=== PATIENT | male | born 1955 | race Caucasian/White ===

== ENCOUNTER → 2025-06-03 | Outpatient (REF) | payer OTHER, SELFPAY ==
[2025-06-03 09:50] LABS: AST(SGOT) 140 U/L (<=37); Alanine Aminotransfer ALT/SGPT 158 U/L (<=46); Albumin, Serum 3.2 g/dL (3.4-4.8); Alkaline Phosphatase 117 U/L (40-129); Anion Gap 12 (5-15); BUN 20 mg/dL (4-19); BUN/Creat Ratio 22.5 RATIO (10-20); Calcium,Total 9.0 mg/dL (7.6-11.0); Carbon Dioxide 26.6 mmol/L (21.0-32.0); Chloride 92 mmol/L (98-108); Globulin 3.4 g/dL (2.2-4.2); Glucose 96 mg/dL (70-99); Potassium 4.0 mmol/L (3.3-5.1)
== END ==
LOC: OLS.SANC 05:00
PROVIDERS: Visit Provider Internal Medicine
DX: I10 Essential (primary) hypertension (principal); J44.9 Chronic obstructive pulmonary disease, unspecified; D64.9 Anemia, unspecified
CPT/HCPCS: 36415; 80053

== ENCOUNTER → 2025-06-11 05:00 | Outpatient (REF) | payer OTHER, SELFPAY ==
[2025-06-11 07:02] LABS: AST(SGOT) 15 U/L (<=37); Alanine Aminotransfer ALT/SGPT 26 U/L (<=46); Albumin, Serum 3.2 g/dL (3.4-4.8); Alkaline Phosphatase 94 U/L (40-129); Anion Gap 10 (5-15); BUN 24 mg/dL (4-19); BUN/Creat Ratio 27.9 RATIO (10-20); Calcium,Total 8.6 mg/dL (7.6-11.0); Carbon Dioxide 26.1 mmol/L (21.0-32.0); Chloride 95 mmol/L (98-108); Globulin 2.7 g/dL (2.2-4.2); Glucose 126 mg/dL (70-99); Potassium 3.6 mmol/L (3.3-5.1)
== END ==
LOC: OLS.SANC 05:00
PROVIDERS: Visit Provider Internal Medicine
DX: I48.91 Unspecified atrial fibrillation (principal); D64.9 Anemia, unspecified; I50.9 Heart failure, unspecified; R53.83 Other fatigue
CPT/HCPCS: 36415; 80053

== ENCOUNTER → 2025-06-14 04:00 | Outpatient (REF) | payer MEDICARE, SELFPAY ==
[2025-06-14 07:49] LABS: Hematocrit 35.6 % (40-54); Hemoglobin 11.7 g/dL (13.0-16.5); Mean Corp Hgb Conc 32.9 g/dL (32-36); Mean Corpuscular Volume 88.1 fL (80-94); Mean Platelet Vol. 9.7 fl (6.2-12.0); POSITIVE COUNT YES; POSITIVE MORPHOLOGY YES; Platelet Count 268 K/mm3 (150-450); RBC Distribution Width CV 14.1 % (11.6-14.6); RBC Distribution Width SD 45.2 fl (35.1-43.9); Red Blood Count 4.04 M/mm3 (4.6-6.2); White Blood Count 8.9 K/mm3 (4.4-11.0)
[2025-06-14 07:54] LABS: Differential Indicated MANUAL DIFF
[2025-06-14 08:03] LABS: Vancomycin, Trough Level 12.9 ug/mL (5.0-15.0)
[2025-06-14 08:04] LABS: AST(SGOT) 35 U/L (<=37); Alanine Aminotransfer ALT/SGPT 35 U/L (<=46); Albumin, Serum 3.3 g/dL (3.4-4.8); Alkaline Phosphatase 96 U/L (40-129); Anion Gap 11 (5-15); BUN 28 mg/dL (4-19); BUN/Creat Ratio 27.9 RATIO (10-20); Calcium,Total 8.7 mg/dL (7.6-11.0); Carbon Dioxide 27.9 mmol/L (21.0-32.0); Chloride 94 mmol/L (98-108); Globulin 2.9 g/dL (2.2-4.2); Glucose 124 mg/dL (70-99); Potassium 3.1 mmol/L (3.3-5.1)
[2025-06-14 08:18] LABS: Neutrophil-Band 2 % (0-5); Neutrophil-Segmented 67 % (47-70); Total Cells Counted 100 (MANUAL DIFF)
[2025-06-14 08:19] LABS: Red Cell Morphology NORM C+C NORMAL (NORM C&C)
== END ==
LOC: OLS.SANC 04:00
PROVIDERS: Referring Provider Internal Medicine; Visit Provider Internal Medicine
DX: I48.91 Unspecified atrial fibrillation (principal); D64.9 Anemia, unspecified; J44.9 Chronic obstructive pulmonary disease, unspecified; R53.83 Other fatigue; E03.9 Hypothyroidism, unspecified; F03.90 Unspecified dementia, unspecified severity, without behavioral disturbance, psychotic disturbance, mood disturbance, and anxiety
CPT/HCPCS: 36415; 80053; 80202; 85025

== ENCOUNTER → 2025-06-18 05:00 | Outpatient (REF) | payer OTHER, SELFPAY ==
--- OUTSIDE RECORDS SUMMARY | 2025-06-18 04:30 | XMS RPT_ITS | CCD ---
Author Organization [facility] Care Team Providers Care Rehabilitation Supervisor Name Role Phone Reji Ferro Attending Unavailable Reji Ferro Attending Unavailable Reji Ferro Attending Unavailable Results Test Name Value Interpretation Reference Range Facil ity CBC W/Diff, Automatedon 10-1 PATH REV May foll Normal [facility] Comment on above: Order Comment: 108.2 Performed By: #### L 501.8820, L100.0100, L500.4050 #### [facility] [address] [place], [address] Absolute Lymph 0.98 X10 3/uL Normal 0.83-4.51 [facility] Comment on above: Order Comment: 108.2 Performed By: #### L 501.8820, L100.0100, L500.4050 #### [facility] [address] [place], [address] Absolute Neut 6.1 X10 3/uL Normal 2.0-7.7 [facility] Comment on above: Order Comment: 108.2 Performed By: #### L 501.8820, L100.0100, L500.4050 #### [facility] [address] [place], [address] PLT EST ADEQUATE Normal ADEQ [facility] Comment on above: Order Comment: 108.2 Performed By: #### L 501.8820, L100.0100, L500.4050 #### [facility] [address] [place], [address] RED CELL MORPH NORM C+C Normal NORM C C [facility] Comment on above: Order Comment: 108.2 Performed By: #### L 501.8820, L100.0100, L500.4050 #### [facility] [address] [place], [address] BAND 2 Normal 0-5 [facility] Comment on above: Order Comment: 108.2 Performed By: #### L 501.8820, L100.0100, L500.4050 #### [facility] [address] [place], [address] Eosinophils/100 WBC (Bld) 9 % High 0-5 [facility] Comment on above: Order Comment: 108.2 Performed By: #### L 501.8820, L100.0100, L500.4050 #### [facility] [address] [place], [address] Lymphocytes (Bld) [#/Vol] 11 10*3/uL Low 19-41 [facility] Comment on above: Order Comment: 108.2 Performed By: #### L 501.8820, L100.0100, L500.4050 #### [facility] [address] [place], [address] MONOCYTE 11 High 0-10 [facility] Comment on above: Order Comment: 108.2 Performed By: #### L 501.8820, L100.0100, L500.4050 #### [facility] [address] [place], [address] SEGS 67 Normal 47-70 [facility] Comment on above: Order Comment: 108.2 Performed By: #### L 501.8820, L100.0100, L500.4050 #### [facility] [address] [place], [address] TOTAL CELLS 100 Normal MANUAL DIFF [facility] Comment on above: Order Comment: 108.2 Performed By: #### L 501.8820, L100.0100, L500.4050 #### [facility] [address] [place], [address] Comprehensive Metabolic Prof siddhartha 06-14-2025 Albumin [Mass/Vol] 3.3 g/dL Low 3.4-4.8 [place] Comment on above: Order Comment: 108.2 Performed By: #### L 501.8820, L100.0100, L500.4050 #### [facility] [address] [place], [address] Albumin/Globulin [Mass ratio] 1.1 {ratio} Normal 0.9-2.4 [facility] Comment on above: Order Comment: 108.2 Performed By: #### L 501.8820, L100.0100, L500.4050 #### [facility] [address] [place], [address] ALK PHOS 96 U/L Normal 40-129 [facility] Comment on above: Order Comment: 108.2 Performed By: #### L 501.8820, L100.0100, L500.4050 #### [facility] [address] [place], [address] ALT [Catalytic activity/Vol] 35 U/L Normal <=46 [facility] Comment on above: Order Comment: 108.2 Performed By: #### L 501.8820, L100.0100, L500.4050 #### [facility] [address] [place], [address] AST [Catalytic activity/Vol] 35 U/L Normal <=37 [facility] Comment on above: Order Comment: 108.2 Performed By: #### L 501.8820, L100.0100, L500.4050 #### [facility] [address] [place], [address] Bilirubin [Mass/Vol] 0.26 mg/dL Normal 0.00-1.30 [facility] Comment on above: Order Comment: 108.2 Performed By: #### L 501.8820, L100.0100, L500.4050 #### [facility] [address] [place], [address] BUN/CRE 27.9 RATIO High 10-20 [facility] Comment on above: Order Comment: 108.2 Performed By: #### L 501.8820, L100.0100, L500.4050 #### [facility] [address] [place], [address] Calcium [Mass/Vol] 8.7 mg/dL Normal 7.6-11.0 [place] Comment on above: Order Comment: 108.2 Performed By: #### L 501.8820, L100.0100, L500.4050 #### [facility] [address] [place], [address] Chloride [Moles/Vol] 94 mmol/L Low 98-108 [facility] Comment on above: Order Comment: 108.2 Performed By: #### L 501.8820, L100.0100, L500.4050 #### [facility] [address] [place], [address] CO2 [Moles/Vol] 27.9 mmol/L Normal 21.0-32.0 [facility] Comment on above: Order Comment: 108.2 Performed By: #### L 501.8820, L100.0100, L500.4050 #### [facility] [address] [place], [address] Creatinine [Mass/Vol] 1.01 mg/dL Normal 0.70-1.20 [facility] Comment on above: Order Comment: 108.2 Performed By: #### L 501.8820, L100.0100, L500.4050 #### [facility] [address] [place], [address] GAP 11 Normal 5-15 [facility] Comment on above: Order Comment: 108.2 Performed By: #### L 501.8820, L100.0100, L500.4050 #### [facility] [address] [place], [address] GFR/1.73 sq M.predicted among non-blacks MDRD (S/P/Bld) [Vol rate/Area] 81 mL/min/{1.73_m2} Normal >60 [facility] Comment on above: Order Comment: 108.2 Result Comment: mL/m in/1.73m2 CKD-EPI Creatinine Equation (2020) Performed By: #### L 501.8820, L100.0100, L500.4050 #### [facility] [address] [place], [address] Globulin (S) [Mass/Vol] 2.9 g/dL Normal 2.2-4.2 [facility] Comment on above: Order Comment: 108.2 Performed By: #### L 501.8820, L100.0100, L500.4050 #### [facility] [address] [place], [address] Glucose [Mass/Vol] 124 mg/dL High 70-99 [place] Comment on above: Order Comment: 108.2 Performed By: #### L 501.8820, L100.0100, L500.4050 #### [facility] [address] [place], [address] Potassium [Moles/Vol] 3.1 mmol/L Low 3.3-5.1 [facility] Comment on above: Order Comment: 108.2 Performed By: #### L 501.8820, L100.0100, L500.4050 #### [facility] [address] [place], [address] Sodium [Moles/Vol] 133 mmol/L Normal 133-145 [place] Comment on above: Order Comment: 108.2 Performed By: #### L 501.8820, L100.0100, L500.4050 #### [facility] [address] [place], [address] T PROT 6.2 g/dL Normal 5.9-8.4 [facility] Comment on above: Order Comment: 108.2 Performed By: #### L 501.8820, L100.0100, L500.4050 #### [facility] [address] [place], [address] Urea nitrogen [Mass/Vol] 28 mg/dL High 4-19 [facility] Comment on above: Order Comment: 108.2 Performed By: #### L 501.8820, L100.0100, L500.4050 #### [facility] [address] [place], [address] Vancomycin, Trough Levelon 1 VANCO, TROUGH 12.9 ug/mL Normal 5.0-15.0 [facility] Comment on above: Order Comment: 108.2 0000 Result Comment: Migue mmended goal trough ranges are generally 10-15 mcg/ml for less severe/complicated infections such as cellulitis or UTI and 15-20 mcg/ml for more severe/complicated infections such as bacteremia/sepsis, osteomyelitis, pneumonia or meningitis. Goal trough ranges should take into account indication, patient-specific factors and organism CHANDANA. VANCOMYCIN STANDARED DRUG THERAPY TROUGH LEVEL: 5.0 - 15.0 mg/L VANCOMYCIN HIGH INTENSITY THERAPY TROUGH LEVEL: 15.0 - 20.0 mg/L High Intensity therapy recommended for serious life threatening infections include: - Meningitis -Endocarditis -Pneumonia (Ventilator/Healtcare Associated) -Sepsis PLEASE CONTACT PHARMACY SERVICES (#[id number]) FOR INTERPRETATION OF RESULTS. Performed By: #### L 501.8820, L100.0100, L500.4050 #### [facility] [address] [place], [address] Comprehensive Metabolic Prof ilon 06-11-2025 Albumin [Mass/Vol] 3.2 g/dL Low 3.4-4.8 [place] Comment on above: Order Comment: 108-2 Performed By: #### L 500.4050 #### [facility] [address] [place], [address] Albumin/Globulin [Mass ratio] 1.2 {ratio} Normal 0.9-2.4 [facility] Comment on above: Order Comment: 108-2 Performed By: #### L 500.4050 #### [facility] [address] [place], [address] ALK PHOS 94 U/L Normal 40-129 [facility] Comment on above: Order Comment: 108-2 Performed By: #### L 500.4050 #### [facility] [address] [place], [address] ALT [Catalytic activity/Vol] 26 U/L Normal <=46 [facility] Comment on above: Order Comment: 108-2 Performed By: #### L 500.4050 #### [facility] [address] [place], [address] AST [Catalytic activity/Vol] 15 U/L Normal <=37 [facility] Comment on above: Order Comment: 108-2 Performed By: #### L 500.4050 #### [facility] [address] [place], [address] Bilirubin [Mass/Vol] 0.29 mg/dL Normal 0.00-1.30 [facility] Comment on above: Order Comment: 108-2 Performed By: #### L 500.4050 #### [facility] [address] [place], [address] BUN/CRE 27.9 RATIO High 10-20 [facility] Comment on above: Order Comment: 108-2 Performed By: #### L 500.4050 #### [facility] [address] [place], [address] Calcium [Mass/Vol] 8.6 mg/dL Normal 7.6-11.0 [place] Comment on above: Order Comment: 108-2 Performed By: #### L 500.4050 #### [facility] [address] [place], [address] Chloride [Moles/Vol] 95 mmol/L Low 98-108 [facility] Comment on above: Order Comment: 108-2 Performed By: #### L 500.4050 #### [facility] [address] [place], [address] CO2 [Moles/Vol] 26.1 mmol/L Normal 21.0-32.0 [facility] Comment on above: Order Comment: 108-2 Performed By: #### L 500.4050 #### [facility] [address] [place], [address] Creatinine [Mass/Vol] 0.87 mg/dL Normal 0.70-1.20 [facility] Comment on above: Order Comment: 108-2 Performed By: #### L 500.4050 #### [facility] [address] [place], [address] GAP 10 Normal 5-15 [facility] Comment on above: Order Comment: 108-2 Performed By: #### L 500.4050 #### [facility] [address] [place], [address] GFR/1.73 sq M.predicted among non-blacks MDRD (S/P/Bld) [Vol rate/Area] 93 mL/min/{1.73_m2} Normal >60 [facility] Comment on above: Order Comment: 108-2 Result Comment: mL/m in/1.73m2 CKD-EPI Creatinine Equation (2020) Performed By: #### L 500.4050 #### [facility] [address] [place], [address] Globulin (S) [Mass/Vol] 2.7 g/dL Normal 2.2-4.2 [facility] Comment on above: Order Comment: 108-2 Performed By: #### L 500.4050 #### [facility] [address] [place], [address] Glucose [Mass/Vol] 126 mg/dL High 70-99 [place] Comment on above: Order Comment: 108-2 Performed By: #### L 500.4050 #### [facility] [address] [place], [address] Potassium [Moles/Vol] 3.6 mmol/L Normal 3.3-5.1 [facility] Comment on above: Order Comment: 108-2 Performed By: #### L 500.4050 #### [facility] [address] [place], [address] Sodium [Moles/Vol] 131 mmol/L Low 133-145 [place] Comment on above: Order Comment: 108-2 Performed By: #### L 500.4050 #### [facility] [address] [place], [address] T PROT 6.0 g/dL Normal 5.9-8.4 [facility] Comment on above: Order Comment: 108-2 Performed By: #### L 500.4050 #### [facility] [address] [place], [address] Urea nitrogen [Mass/Vol] 24 mg/dL High 4-19 [facility] Comment on above: Order Comment: 108-2 Performed By: #### L 500.4050 #### [facility] [address] [place], [address] CBC W/Diff, Automatedon 10-0 Absolute Neut Normal 2.0-7.7 [facility] Comment on above: Order Comment: 108.2 Result Comment: [facility] Performed By: #### L 100.0100, L500.4050 #### [facility] [address] [place], [address] HCT Normal 40-54 [facility] Comment on above: Order Comment: 108.2 Performed By: #### L 100.0100 #### [facility] [address] [place], [address] Result Comment: [facility] Performed By: #### L 100.0100, L500.4050 #### [facility] [address] [place], [address] HGB Normal 13.0-16.5 [facility] Comment on above: Order Comment: 108.2 Performed By: #### L 100.0100 #### [facility] [address] [place], [address] Result Comment: [facility] Performed By: #### L 100.0100, L500.4050 #### [facility] [address] [place], [address] MCH Normal 27.0-32.0 [facility] Comment on above: Order Comment: 108.2 Performed By: #### L 100.0100 #### [facility] [address] [place], [address] Result Comment: [facility] Performed By: #### L 100.0100, L500.4050 #### [facility] [address] [place], [address] MCHC Normal 32-36 [facility] Comment on above: Order Comment: 108.2 Performed By: #### L 100.0100 #### [facility] [address] [place], [address] Result Comment: [facility] Performed By: #### L 100.0100, L500.4050 #### [facility] [address] [place], [address] MCV Normal 80-94 [facility] Comment on above: Order Comment: 108.2 Performed By: #### L 100.0100 #### [facility] [address] [place], [address] Result Comment: [facility] Performed By: #### L 100.0100, L500.4050 #### [facility] [address] [place], [address] NEUT% Normal 47-70 [facility] Comment on above: Order Comment: 108.2 Result Comment: [facility] Performed By: #### L 100.0100, L500.4050 #### [facility] [address] [place], [address] PLT Normal 150-450 [facility] Comment on above: Order Comment: 108.2 Performed By: #### L 100.0100 #### [facility] [address] [place], [address] Result Comment: [facility] Performed By: #### L 100.0100, L500.4050 #### [facility] [address] [place], [address] RBC Normal 4.6-6.2 [facility] Comment on above: Order Comment: 108.2 Performed By: #### L 100.0100 #### [facility] [address] [place], [address] Result Comment: [facility] Performed By: #### L 100.0100, L500.4050 #### [facility] [address] [place], [address] RDW CV Normal 11.6-14.6 [facility] Comment on above: Order Comment: 108.2 Performed By: #### L 100.0100 #### [facility] [address] [place], [address] Result Comment: [facility] Performed By: #### L 100.0100, L500.4050 #### [facility] [address] [place], [address] RDW SD Normal 35.1-43.9 [facility] Comment on above: Order Comment: 108.2 Performed By: #### L 100.0100 #### [facility] [address] [place], [address] Result Comment: [facility] Performed By: #### L 100.0100, L500.4050 #### [facility] [address] [place], [address] WBC Normal 4.4-11.0 [facility] Comment on above: Order Comment: 108.2 Performed By: #### L 100.0100 #### [facility] [address] [place], [address] Result Comment: [facility] Performed By: #### L 100.0100, L500.4050 #### [facility] [address] [place], [address] Comprehensive Metabolic Prof ilon 06-07-2025 ALB Normal 3.4-4.8 [facility] Comment on above: Order Comment: 108.2 Result Comment: [facility] Performed By: #### L 100.0100, L500.4050 #### [facility] [address] [place], [address] ALK PHOS Normal 40-129 [facility] Comment on above: Order Comment: 108.2 Result Comment: [facility] Performed By: #### L 100.0100, L500.4050 #### [facility] [address] [place], [address] ALT Normal <=46 [facility] Comment on above: Order Comment: 108.2 Result Comment: [facility] Performed By: #### L 100.0100, L500.4050 #### [facility] [address] [place], [address] AST Normal <=37 [facility] Comment on above: Order Comment: 108.2 Result Comment: [facility] Performed By: #### L 100.0100, L500.4050 #### [facility] [address] [place], [address] BUN Normal 4-19 [facility] Comment on above: Order Comment: 108.2 Result Comment: [facility] Performed By: #### L 100.0100, L500.4050 #### [facility] [address] [place], [address] BUN/CRE Normal 10-20 [facility] Comment on above: Order Comment: 108.2 Result Comment: [facility] Performed By: #### L 100.0100, L500.4050 #### [facility] [address] [place], [address] Calcium Normal 7.6-11.0 [facility] Comment on above: Order Comment: 108.2 Result Comment: [facility] Performed By: #### L 100.0100, L500.4050 #### [facility] [address] [place], [address] CL Normal 98-108 [facility] Comment on above: Order Comment: 108.2 Result Comment: [facility] Performed By: #### L 100.0100, L500.4050 #### [facility] [address] [place], [address] CO2 Normal 21.0-32.0 [facility] Comment on above: Order Comment: 108.2 Result Comment: [facility] Performed By: #### L 100.0100, L500.4050 #### [facility] [address] [place], [address] CREAT,SERUM Normal 0.70-1.20 [facility] Comment on above: Order Comment: 108.2 Result Comment: [facility] Performed By: #### L 100.0100, L500.4050 #### [facility] [address] [place], [address] eGFR Normal >60 [facility] Comment on above: Order Comment: 108.2 Result Comment: [facility] Performed By: #### L 100.0100, L500.4050 #### [facility] [address] [place], [address] GAP Normal 5-15 [facility] Comment on above: Order Comment: 108.2 Result Comment: [facility] Performed By: #### L 100.0100, L500.4050 #### [facility] [address] [place], [address] GLU Normal 70-99 [facility] Comment on above: Order Comment: 108.2 Result Comment: [facility] Performed By: #### L 100.0100, L500.4050 #### [facility] [address] [place], [address] Potassium Normal 3.3-5.1 [facility] Comment on above: Order Comment: 108.2 Result Comment: [facility] Performed By: #### L 100.0100, L500.4050 #### [facility] [address] [place], [address] T BILI Normal 0.00-1.30 [facility] Comment on above: Order Comment: 108.2 Result Comment: [facility] Performed By: #### L 100.0100, L500.4050 #### [facility] [address] [place], [address] T PROT Normal 5.9-8.4 [facility] Comment on above: Order Comment: 108.2 Result Comment: [facility] Performed By: #### L 100.0100, L500.4050 #### [facility] [address] [place], [address] Comprehensive Metabolic Profil Normal 133-145 [facility] Comment on above: Order Comment: 108.2 Result Comment: [facility] Performed By: #### L 100.0100, L500.4050 #### [facility] [address] [place], [address] Comprehensive Metabolic Prof ilon 06-04-2025 ALB Normal 3.4-4.8 [facility] Comment on above: Order Comment: 108-2 Result Comment: [facility] Performed By: #### L 500.4050 #### [facility] [address] [place], [address] ALK PHOS Normal 40-129 [facility] Comment on above: Order Comment: 108-2 Result Comment: [facility] Performed By: #### L 500.4050 #### [facility] [address] [place], [address] ALT Normal <=46 [facility] Comment on above: Order Comment: 108-2 Result Comment: [facility] Performed By: #### L 500.4050 #### [facility] [address] [place], [address] AST Normal <=37 [facility] Comment on above: Order Comment: 108-2 Result Comment: [facility] Performed By: #### L 500.4050 #### [facility] [address] [place], [address] BUN Normal 4-19 [facility] Comment on above: Order Comment: 108-2 Result Comment: [facility] Performed By: #### L 500.4050 #### [facility] [address] [place], [address] BUN/CRE Normal 10-20 [facility] Comment on above: Order Comment: 108-2 Result Comment: [facility] Performed By: #### L 500.4050 #### [facility] [address] [place], [address] Calcium Normal 7.6-11.0 [facility] Comment on above: Order Comment: 108-2 Result Comment: [facility] Performed By: #### L 500.4050 #### [facility] [address] [place], [address] CL Normal 98-108 [facility] Comment on above: Order Comment: 108-2 Result Comment: [facility] Performed By: #### L 500.4050 #### [facility] [address] [place], [address] CO2 Normal 21.0-32.0 [facility] Comment on above: Order Comment: 108-2 Result Comment: [facility] Performed By: #### L 500.4050 #### [facility] [address] [place], [address] CREAT,SERUM Normal 0.70-1.20 [facility] Comment on above: Order Comment: 108-2 Result Comment: [facility] Performed By: #### L 500.4050 #### [facility] [address] [place], [address] eGFR Normal >60 [facility] Comment on above: Order Comment: 108-2 Result Comment: [facility] Performed By: #### L 500.4050 #### [facility] [address] [place], [address] GAP Normal 5-15 [facility] Comment on above: Order Comment: 108-2 Result Comment: [facility] Performed By: #### L 500.4050 #### [facility] [address] [place], [address] GLU Normal 70-99 [facility] Comment on above: Order Comment: 108-2 Result Comment: [facility] Performed By: #### L 500.4050 #### [facility] [address] [place], [address] Potassium Normal 3.3-5.1 [facility] Comment on above: Order Comment: 108-2 Result Comment: [facility] Performed By: #### L 500.4050 #### [facility] [address] [place], [address] T BILI Normal 0.00-1.30 [facility] Comment on above: Order Comment: 108-2 Result Comment: [facility] Performed By: #### L 500.4050 #### [facility] [address] [place], [address] T PROT Normal 5.9-8.4 [facility] Comment on above: Order Comment: 108-2 Result Comment: [facility] Performed By: #### L 500.4050 #### [facility] [address] [place], [address] Comprehensive Metabolic Profil Normal 133-145 [facility] Comment on above: Order Comment: 108-2 Result Comment: [facility] Performed By: #### L 500.4050 #### [facility] [address] [place], [address] Comprehensive Metabolic Prof ilon 06-03-2025 Albumin [Mass/Vol] 3.2 g/dL Low 3.4-4.8 [place] Comment on above: Order Comment: 108.2 Performed By: #### L 500.4050 #### [facility] [address] [place], [address] Albumin/Globulin [Mass ratio] 0.9 {ratio} Normal 0.9-2.4 [facility] Comment on above: Order Comment: 108.2 Performed By: #### L 500.4050 #### [facility] [address] [place], [address] ALK PHOS 117 U/L Normal 40-129 [facility] Comment on above: Order Comment: 108.2 Performed By: #### L 500.4050 #### [facility] [address] [place], [address] ALT [Catalytic activity/Vol] 158 U/L High <=46 [facility] Comment on above: Order Comment: 108.2 Performed By: #### L 500.4050 #### [facility] [address] [place], [address] AST [Catalytic activity/Vol] 140 U/L High <=37 [facility] Comment on above: Order Comment: 108.2 Performed By: #### L [id number] #### [facility] [address] [place], [address] Bilirubin [Mass/Vol] 0.43 mg/dL Normal 0.00-1.30 [facility] Comment on above: Order Comment: 108.2 Performed By: #### L 500.4050 #### [facility] [address] [place], [address] BUN/CRE 22.5 RATIO High 10-20 [facility] Comment on above: Order Comment: 108.2 Performed By: #### L 500.4050 #### [facility] [address] [place], [address] Calcium [Mass/Vol] 9.0 mg/dL Normal 7.6-11.0 [place] Comment on above: Order Comment: 108.2 Performed By: #### L 500.4050 #### [facility] [address] [place], [address] Chloride [Moles/Vol] 92 mmol/L Low 98-108 [facility] Comment on above: Order Comment: 108.2 Performed By: #### L 500.4050 #### [facility] [address] [place], [address] CO2 [Moles/Vol] 26.6 mmol/L Normal 21.0-32.0 [facility] Comment on above: Order Comment: 108.2 Performed By: #### L 500.4050 #### [facility] [address] [place], [address] Creatinine [Mass/Vol] 0.90 mg/dL Normal 0.70-1.20 [facility] Comment on above: Order Comment: 108.2 Performed By: #### L 500.4050 #### [facility] [address] [place], [address] GAP 12 Normal 5-15 [facility] Comment on above: Order Comment: 108.2 Performed By: #### L 500.4050 #### [facility] [address] [place], [address] GFR/1.73 sq M.predicted among non-blacks MDRD (S/P/Bld) [Vol rate/Area] 92 mL/min/{1.73_m2} Normal >60 [facility] Comment on above: Order Comment: 108.2 Result Comment: mL/m in/1.73m2 CKD-EPI Creatinine Equation (2020) Performed By: #### L 500.4050 #### [facility] [address] [place], [address] Globulin (S) [Mass/Vol] 3.4 g/dL Normal 2.2-4.2 [facility] Comment on above: Order Comment: 108.2 Performed By: #### L 500.4050 #### [facility] [address] [place], [address] Glucose [Mass/Vol] 96 mg/dL Normal 70-99 [place] Comment on above: Order Comment: 108.2 Performed By: #### L 500.4050 #### [facility] [address] [place], [address] Potassium [Moles/Vol] 4.0 mmol/L Normal 3.3-5.1 [facility] Comment on above: Order Comment: 108.2 Performed By: #### L 500.4050 #### [facility] [address] [place], [address] Sodium [Moles/Vol] 130 mmol/L Low 133-145 [place] Comment on above: Order Comment: 108.2 Performed By: #### L 500.4050 #### [facility] [address] [place], [address] T PROT 6.5 g/dL Normal 5.9-8.4 [facility] Comment on above: Order Comment: 108.2 Performed By: #### L 500.4050 #### [facility] [address] [place], [address] Urea nitrogen [Mass/Vol] 20 mg/dL High 4-19 [facility] Comment on above: Order Comment: 108.2 Performed By: #### L 500.4050 #### [facility] [address] [place], [place], [address] Encounters Encounter Date Encounter Type Care Provider Facility Start: 06-14-2025 ambulatory Reji Ahni lity:[facility] Start: 06-11-20[facility] Start: 06-03-2025 ambulatory Reji [place] Ah[facility] lity:[facility] Payers Date Payer Category Payer Self-pay Summary Purpose Family History No Family History Records Found Advance Directives No Advanced Directives Records Found Additional Source Comments (unrecognized sect ion and content) No Status Records Found INFORMATION SOURCE (unrecogn ized section and content) DATE CREATED AUTHOR 06/14/2025 [facility] FOR RECORDS PERTAINING TO PATIENTS WHO ARE OR HAVE BEEN ENROLLED IN A CHEMICAL DEPENDENCY/SUBSTANCEABUSE PROGRAM, SOME INFORMATION MAY BE OMITTED. This clinical summary was aggregated from multiple sources. Caution should be exercised in using it in the provision of clinical care. This summary normalizes information from multiple sources, and as a consequence, information in this document may materially change the coding, format and clinical context of patient data. In addition, data may be omitted in some cases. CLINICAL DECISIONS SHOULD BE BASED ON THE PRIMARY CLINICAL RECORDS. [employer] [facility]. provides no warranty or guarantee of the accuracy or completeness of information in this document.
[2025-06-18 09:18] LABS: Vancomycin, Trough Level 10.2 ug/mL (5.0-15.0)
== END ==
LOC: OLS.SANC 05:00
PROVIDERS: Visit Provider Internal Medicine
DX: E78.5 Hyperlipidemia, unspecified (principal); E03.9 Hypothyroidism, unspecified; J96.90 Respiratory failure, unspecified, unspecified whether with hypoxia or hypercapnia; J44.9 Chronic obstructive pulmonary disease, unspecified
CPT/HCPCS: 36415; 80202

== ENCOUNTER → 2025-06-21 05:00 | Outpatient (REF) | payer OTHER, SELFPAY ==
[2025-06-21 08:04] LABS: Hematocrit 32.0 % (40-54); Hemoglobin 10.6 g/dL (13.0-16.5); Immature Granulocytes Count 0.350 X10^3/uL (0.0-0.0); Mean Corp Hgb Conc 33.1 g/dL (32-36); Mean Corpuscular Volume 89.1 fL (80-94); Mean Platelet Vol. 9.4 fl (6.2-12.0); NRBC Flagged by Analyzer 0 % (0-5); Platelet Count 216 K/mm3 (150-450); RBC Distribution Width CV 14.5 % (11.6-14.6); RBC Distribution Width SD 47.0 fl (35.1-43.9); Red Blood Count 3.59 M/mm3 (4.6-6.2); White Blood Count 7.9 K/mm3 (4.4-11.0)
[2025-06-21 08:25] LABS: Vancomycin, Trough Level 20.4 ug/mL (5.0-15.0)
[2025-06-21 08:27] LABS: AST(SGOT) 20 U/L (<=37); Alanine Aminotransfer ALT/SGPT 21 U/L (<=46); Albumin, Serum 3.3 g/dL (3.4-4.8); Alkaline Phosphatase 101 U/L (40-129); Anion Gap 9 (5-15); BUN 28 mg/dL (4-19); BUN/Creat Ratio 31.3 RATIO (10-20); Calcium,Total 8.5 mg/dL (7.6-11.0); Carbon Dioxide 27.6 mmol/L (21.0-32.0); Chloride 96 mmol/L (98-108); Globulin 2.6 g/dL (2.2-4.2); Glucose 95 mg/dL (70-99); Potassium 4.2 mmol/L (3.3-5.1)
== END ==
LOC: OLS.SANC 05:00
PROVIDERS: Visit Provider Internal Medicine
DX: I48.91 Unspecified atrial fibrillation (principal); D64.9 Anemia, unspecified; I50.9 Heart failure, unspecified; J44.9 Chronic obstructive pulmonary disease, unspecified; I10 Essential (primary) hypertension; E78.5 Hyperlipidemia, unspecified; G93.41 Metabolic encephalopathy
CPT/HCPCS: 36415; 80053; 80202; 85025

== ENCOUNTER → 2025-06-23 | Outpatient (REF) | payer MEDICARE, SELFPAY ==
[2025-06-23 06:40] LABS: Hematocrit 31.4 % (40-54); Hemoglobin 10.6 g/dL (13.0-16.5); Mean Corp Hgb Conc 33.8 g/dL (32-36); Mean Corpuscular Volume 87.2 fL (80-94); Mean Platelet Vol. 9.5 fl (6.2-12.0); Platelet Count 210 K/mm3 (150-450); RBC Distribution Width CV 14.4 % (11.6-14.6); RBC Distribution Width SD 45.5 fl (35.1-43.9); Red Blood Count 3.60 M/mm3 (4.6-6.2); White Blood Count 8.0 K/mm3 (4.4-11.0)
[2025-06-23 06:50] LABS: Anion Gap 9 (5-15); BUN 23 mg/dL (4-19); BUN/Creat Ratio 23.7 RATIO (10-20); Calcium,Total 8.0 mg/dL (7.6-11.0); Carbon Dioxide 27.0 mmol/L (21.0-32.0); Chloride 94 mmol/L (98-108); Glucose 104 mg/dL (70-99); Potassium 4.1 mmol/L (3.3-5.1)
== END ==
LOC: OLS.SANC 04:00
PROVIDERS: Referring Provider Internal Medicine; Visit Provider Internal Medicine
DX: I48.91 Unspecified atrial fibrillation (principal); I10 Essential (primary) hypertension
CPT/HCPCS: 36415; 80048; 85027

== ENCOUNTER → 2025-06-28 05:00 | Outpatient (REF) | payer OTHER, SELFPAY ==
[2025-06-28 08:55] LABS: Hematocrit 29.7 % (40-54); Hemoglobin 9.8 g/dL (13.0-16.5); Mean Corp Hgb Conc 33.0 g/dL (32-36); Mean Corpuscular Volume 88.1 fL (80-94); Mean Platelet Vol. 9.5 fl (6.2-12.0); POSITIVE COUNT YES; POSITIVE MORPHOLOGY YES; Platelet Count 309 K/mm3 (150-450); RBC Distribution Width CV 14.4 % (11.6-14.6); RBC Distribution Width SD 46.4 fl (35.1-43.9); Red Blood Count 3.37 M/mm3 (4.6-6.2); White Blood Count 9.0 K/mm3 (4.4-11.0)
[2025-06-28 09:11] LABS: AST(SGOT) 21 U/L (<=37); Alanine Aminotransfer ALT/SGPT 18 U/L (<=46); Albumin, Serum 3.1 g/dL (3.4-4.8); Alkaline Phosphatase 99 U/L (40-129); Anion Gap 9 (5-15); BUN 18 mg/dL (4-19); BUN/Creat Ratio 20.4 RATIO (10-20); Calcium,Total 8.4 mg/dL (7.6-11.0); Carbon Dioxide 26.5 mmol/L (21.0-32.0); Chloride 96 mmol/L (98-108); Globulin 2.9 g/dL (2.2-4.2); Glucose 123 mg/dL (70-99); Potassium 3.7 mmol/L (3.3-5.1)
[2025-06-28 09:15] LABS: Vancomycin, Trough Level 19.6 ug/mL (5.0-15.0)
[2025-06-28 09:20] LABS: Differential Indicated MANUAL DIFF
[2025-06-28 09:26] LABS: Neutrophil-Band 3 % (0-5); Neutrophil-Segmented 61 % (47-70); Red Cell Morphology NORM C+C NORMAL (NORM C&C); Total Cells Counted 100 (MANUAL DIFF)
== END ==
LOC: OLS.SANC 05:00
PROVIDERS: Visit Provider Internal Medicine
DX: I50.9 Heart failure, unspecified (principal); J44.9 Chronic obstructive pulmonary disease, unspecified; E11.9 Type 2 diabetes mellitus without complications; I82.409 Acute embolism and thrombosis of unspecified deep veins of unspecified lower extremity; E78.5 Hyperlipidemia, unspecified; E03.9 Hypothyroidism, unspecified
CPT/HCPCS: 36415; 80053; 80202; 85025

== ENCOUNTER → 2025-06-30 20:00 | Outpatient (REF) | payer OTHER, SELFPAY | LOC: OLS.SANC 20:00 | PROVIDERS: Visit Provider Internal Medicine | DX: D64.9 Anemia, unspecified (principal) | CPT/HCPCS: 82274 ==

== ENCOUNTER → 2025-07-05 04:00 | Outpatient (REF) | payer OTHER, SELFPAY ==
--- OUTSIDE RECORDS SUMMARY | 2025-07-05 03:48 | XMS RPT_ITS | CCD ---
Author Organization [facility] Care Team Providers Care [employer] Name Role Phone Unavailable Primary Care Provider UnavailLuly Person Primary Care Provider Charlie Del Rosario Primary Care Provider Charlie Del Rosario MD Primary Care Provider Charlie Del Rosario MD Primary Care Provider Jamia Sierra MD Primary Care Provider Jamia Sierra MD Primary Care Provider Unavailable Primary Care Provider UnavailLuly Person MD Primary Care Provider Jamia Sierra MD Primary Care Provider [phone] Jamia Sierra MD Unavailable Jamia Sierra MD Primary Care Provider Matt HERNANDEZ Muttrevon Unavailable [phone] Shaun AGRAWAL, Tanika Garza Unavailable Unavailable Pedro Subramanian MD Primary Care Provider [phone] Shaun AGRAWAL, Tanika Garza Unavailable Unavailable Monica Lora RN Unavailable Unavailable Monica Lora RN Unavailable Unavailable Shaun AGRAWAL, Tanika Garza Unavailable Unavailable Jennifer Howell Unavailable Unavailable Tanika Dunn RN Unavailable Unavailable Jennifer Howell Unavailable Unavailable Julisa Mckinnon RN Unavailable Unavailable Julisa Mckinnon RN Unavailable Unavailable Toi Davis MD Primary Care Provider [phone] Julisa Mckinnon RN Unavailable Unavailable PROVIDER, UNKNOWN Attending Unavailable PROVIDER, UNKNOWN Admitting Unavailable Julisa Mckinnon RN Unavailable Unavailable Toi Davis MD [facility] Care Provider [phone] Pedro Subramanian MD Primary Care Provider [phone] JOSE M WIGGINS Admitting Unavailable [place]DELL, [place] Primary Care Unavailable JOSE M WIGGINS Attending Unavailable JOSE M WIGGINS Admitting Unavailable SAVANAELL, [place] Primary Care Unavailable JOSE M WIGGINS Attending Unavailable CHARLIE WESTFALL Attending Unavailable ASHLEY YANG Admitting Unavailable EAN HUGHES Consulting Unavailable ROVERTO, TOI Primary Care Unavailable ROSHAN JONES Consulting Unavailab ALLAN Hughes Consulting Unavailable JOSE M WIGGINS Admitting Unavailable SAVANAELL, [place] Primary Care Unavailable ROSALIE, JOSE M Attending Unavailable RACHAEL NGO Consulting Unavailable MICHAEL LANGE Admitting Unavailjames DAVIS, [facility] Primary Care Unavailable RUBEN CAM Attending Unavailable RUBEN CAM Consulting [facility] [place] Primary Care Unavailable JESSENIA CRYSTAL Attending Unavailable ASDELL, [place] Primary Care Unavailable TANVI GONZALES Attending Unavailable SAVANAELL, [place] Primary Care Unavailable MICHAEL LANGE Referring Unavailjames DAVIS, [facility] Primary Care Unavailable ROVERTO, [facility] Care [facility] [place] Primary Care Unavailable CHARLIE MCINTYRE Referring Unavailable [place]AVANAELL, [place] Primary Care Unavailable Reji Ferro Attending Unavailable Reji Ferro Attending Unavailable Reji Ferro Attending Unavailable Reji Ferro Attending Unavailable Reji Ferro Referring Unavailable Reji Ferro Attending Unavailable Reji Ferro Referring Unavailable Reji Ferro Attending Unavailable Reji Ferro Attending Unavailable Reji Ferro Attending Unavailable Allergies Allergy Classification Reported Allergen(s) Allergy Type Date of Onset Reaction(s) Facility (6 sources) cefepime Drug Allergy 06-10-2025 [facility] [employer] Phone: Medications Current Medications Medication Drug Class(es) Dates Sig (Normalized) Sig (Original) acetaminophen 325 mg / HYDROcodone bitartrate 5 mg oral tablet (2 sources) Opioid Agonist Start: 07-01-2020 HYDROcodone-acetam inophen (NORCO) 5-325 MG per tablet 1 tablet Start: 07-21-2019 End: 07-24-2019 take 1 tablet by mouth every four hours as needed for pain, then take 1 tablet by mouth as needed for pain HYDROcodone-acetaminophen (NORCO) 5-325 MG per tablet Indications: Displaced fracture of shaft of left clavicle, initial encounter for closed fracture Take 1 tablet by mouth every 4 hours as needed for Pain for up to 3 days. Intended supply: 3 days. Take lowest dose possible to manage pain 10 tablet 0 07/21/2019 07/24/2019 Active albuterol 0.83 mg/ml inhalation solution (20 sources) beta2-Adrenergic Agonist Start: 09-16-2024 End: 09-28-2024 albuterol (2.5 MG/3ML) 0.083% nebulizer solution Indications: Chronic bronchitis, unspecified chronic bronchitis type (HCC) Take 3 mL (2.5 mg) by nebulization as needed for wheezing or shortness of breath. 75 mL 3 09/28/2024 Active Start: 11-11-2023 albuterol (2.5 MG/3ML) 0.083% nebulizer solution 2.5 mg Start: 04-02-2023 End: 11-14-2023 take 2 puff(s) by inhalation every six hours as needed for wheezing albuterol 108 (90 Base) MCG/ACT inhaler Indications: Chronic bronchitis, unspecified chronic bronchitis type (HCC) INHALE 2 PUFFS INTO LUNGS EVERY 6 HOURS NEEDED FOR WHEEZING OR SHORTNESS OF BREATH 18 each 2 10/07/2023 11/14/2023 Discontinued (Stop taking at discharge) Start: 03-15-2023 End: 09-16-2024 albuterol (2.5 MG/3ML) 0.083 % nebulizer solution TAKE 3 MLS VIA NEBULIZATION ONCE NEEDED FOR WHEEZING OR SHORTNESS OF BREATH FOR UP TO 75 DOSES 75 mL 2 03/15/2023 09/16/2024 Discontinued (Reorder) Start: 01-01-2023 End: 03-15-2023 albuterol (2.5 MG/3ML) 0.083 % nebulizer solution Take 3 mL (2.5 mg) by nebulization Once as needed for wheezing or shortness of breath for up to 75 doses. Take 3 mL (2.5 mg) by nebulization as needed for wheezing or shortness of breath. 75 mL 2 01/01/2023 03/15/2023 Discontinued Start: 09-14-2022 End: 01-01-2023 albuterol (2.5 MG/3ML) 0.083 % nebulizer solution Take 3 mL (2.5 mg) by nebulization as needed for wheezing or shortness of breath. 75 mL 2 09/14/2022 01/01/2023 Discontinued Start: 09-12-2022 albuterol (2.5 MG/3ML) 0.083% nebulizer solution 2.5 mg Start: 08-21-2022 End: 04-02-2023 take 2 puff(s) by inhalation every six hours as needed for wheezing albuterol 108 (90 Base) MCG/ACT inhaler Indications: Chronic bronchitis, unspecified chronic bronchitis type (HCC) Inhale 2 puffs every 6 hours as needed for wheezing or shortness of breath. 18 each 2 01/01/2023 04/02/2023 Discontinued Start: 07-25-2022 End: 08-21-2022 take 2 puff(s) by inhalation every six hours as needed for wheezing albuterol 108 (90 Base) MCG/ACT inhaler Indications: Chronic bronchitis, unspecified chronic bronchitis type (HCC) Inhale 2 puffs every 6 hours as needed for wheezing or shortness of breath. 18 g 0 07/25/2022 08/21/2022 Discontinued Start: 07-21-2021 take 2 puff(s) by in halation every six hours as needed for wheezing albuterol sulfate HFA (PROAIR HFA) 108 (90 Base) MCG/ACT inhaler Indications: Pulmonary emphysema, unspecified emphysema type (HCC) Inhale 2 puffs into the lungs every 6 hours as needed for Wheezing 6.7 g 0 07/21/2021 Active Start: 02-27-2021 take 2 puff(s) by in halation every six hours as needed for wheezing albuterol sulfate HFA (PROAIR HFA) 108 (90 Base) MCG/ACT inhaler Indications: Pulmonary emphysema, unspecified emphysema type (HCC) Inhale 2 puffs into the lungs every 6 hours as needed for Wheezing 6 Inhaler 3 02/27/2021 Active Start: 07-01-2020 2.5 mg, Nebuli zation, EVERY 4 HOURS PRN, Wheezing, Shortness of Breath, Starting Sat07/01/20 at 1159 Start: 06-01-2020 albuterol (PRO VENTIL) (2.5 MG/3ML) 0.083% nebulizer solution Indications: Pulmonary emphysema, unspecified emphysema type (HCC) Take 3 mLs by nebulization every 4 hours as needed for Wheezing or Shortness of Breath 375 mL 5 06/01/2020 Active Start: 05-04-2020 take 2 puff(s) by in halation every six hours as needed for wheezing albuterol sulfate HFA (PROAIR HFA) 108 (90 Base) MCG/ACT inhaler Indications: Pulmonary emphysema, unspecified emphysema type (HCC) Inhale 2 puffs into the lungs every 6 hours as needed for Wheezing 6 Inhaler 3 05/04/2020 Active Start: 05-04-2020 take 2 puff(s) by in halation every six hours as needed for wheezing albuterol sulfate HFA (PROAIR HFA) 108 (90 Base) MCG/ACT inhaler Indications: Pulmonary emphysema, unspecified emphysema type (HCC) Inhale 2 puffs into the lungs every 6 hours as needed for Wheezing 6 Inhaler 3 05/04/2020 Active Start: 05-04-2020 albuterol (PRO VENTIL) (2.5 MG/3ML) 0.083% nebulizer solution Indications: Pulmonary emphysema, unspecified emphysema type (HCC) Take 3 mLs by nebulization every 4 hours as needed for Wheezing or Shortness of Breath USE 1 ML BY NEBULIZATION 4 TIMES DAILY NEEDED FOR WHEEZING 375 mL 5 05/04/2020 Active Start: 02-25-2020 albuterol (PRO VENTIL) (2.5 MG/3ML) 0.083% nebulizer solution Indications: Chronic obstructive pulmonary disease, unspecified COPD type (HCC) Take 3 mLs by nebulization every 4 hours as needed for Wheezing or Shortness of Breath USE 1 ML BY NEBULIZATION 4 TIMES DAILY NEEDED FOR WHEEZING 375 mL 5 02/25/2020 Active Start: 09-15-2019 End: 02-25-2020 albuterol (PROVENTIL) (2.5 M G/3ML) 0.083% nebulizer solution Indications: Chronic obstructive pulmonary disease, unspecified COPD type (HCC) USE 1 ML BY NEBULIZATION 4 TIMES DAILY NEEDED FOR WHEEZING 375 mL 3 09/15/2019 02/25/2020 Discontinued (REORDER) Start: 12-15-2018 End: 02-25-2020 take 2 puff(s) by inhalation every six hours as needed for wheezing albuterol sulfate HFA (PROAIR HFA) 108 (90 Base) MCG/ACT inhaler Inhale 2 puffs into the lungs every 6 hours as needed for Wheezing 6 Inhaler 3 02/25/2020 Active Start: 12-15-2018 take 2 puff(s) by in halation every six hours as needed for wheezing albuterol sulfate HFA (PROAIR HFA) 108 (90 Base) MCG/ACT inhaler Inhale 2 puffs into the lungs every 6 hours as needed for Wheezing 6 Inhaler 3 12/15/2018 Active Start: 02-22-2018 albuterol (PRO VENTIL) (2.5 MG/3ML) 0.083% nebulizer solution Indications: Chronic obstructive pulmonary disease, unspecified COPD type (HCC) USE 1 ML BY NEBULIZATION 4 TIMES DAILY NEEDED FOR WHEEZING 375 mL 3 02/22/2018 Active albuterol sulfate HFA (PROAIR HFA) 108 (90 Base) MCG/ACT inhaler (1 source) Start: 05-04-2020 take 2 puff(s) by inhalation every six hours as needed for wheezing albuterol sulfate HFA (PROAIR HFA) 108 (90 Base) MCG/ACT inhaler Indications: Pulmonary emphysema, unspecified emphysema type (HCC) Inhale 2 puffs into the lungs every 6 hours as needed for Wheezing 6 Inhaler 3 05/04/2020 Active albuterol sulfate HFA 108 (90 Base) MCG/ACT inhaler 4 puff (1 source) Start: 02-11-2020 albuterol sulfate HFA 108 (90 Base) MCG/ACT inhaler 4 puff carvedilol 12.5 mg oral tablet (9 sources) alpha-Adrenergic Amira, beta-Adrenergic Amira Start: 09-25-2018 take 1 tablet by mouth twice daily at mealtime carvedilol (COREG) 12.5 MG tablet Indications: Essential hypertension TAKE 1 TABLET BY MOUTH 2 TIMES DAILY (WITH MEALS) 180 tablet 3 09/25/2018 Active cephalexin 500 mg oral capsule (2 sources) Cephalosporin Antibacterial Start: 04-12-2021 End: 04-19-2021 take 1 capsule by mouth four times daily cephALEXin (KEFLEX) 500 MG capsule Indications: Toe infection Take 1 capsule by mouth 4 times daily for 7 days 28 capsule 0 04/12/2021 04/19/2021 Active dapagliflozin 10 mg oral tablet (20 sources) Sodium-Glucose Cotransporter 2 Inhibitor Start: 06-04-2025 End: 06-11-2026 take 1 tablet by mouth once daily dapagliflozin (Farxiga) 10 MG tablet Indications: Heart Failure Take 1 tablet (10 mg) by mouth daily. 06/11/2025 06/11/2026 Active Start: 09-10-2024 End: 09-17-2025 take 1 tablet by mouth once daily in the evening dapagliflozin (Farxiga) 5 MG tablet Take 1 tablet (5 mg) by mouth daily. 30 tablet 11 09/16/2024 2:50 PM EST 09/17/2024 06/04/2025 Discontinued (Other) diclofenac sodium 0.01 mg/mg topical gel (6 sources) Nonsteroidal Anti-inflammatory Drug Start: 12-16-2020 diclofenac sodium (VOLTAREN) 1 % GEL Indications: Chronic bilateral low back pain without sciatica APPLY 4 G TOPICALLY 4 TIMES DAILY NEEDED FOR PAIN (BACK PAIN) 400 g 1 12/16/2020 Active Start: 11-29-2020 diclofenac sod ium (VOLTAREN) 1 % GEL Indications: Chronic bilateral low back pain without sciatica Apply 4 g topically 4 times daily as needed for Pain (Back Pain) 350 g 0 11/29/2020 Active 1 ml diphenhydrAMINE hydrochloride 50 mg/ml cartridge (8 sources) Histamine-1 Receptor Antagonist Start: 06-07-2025 End: 06-10-2025 diphenhydrAMINE (BENADryl) 50 MG/ML injection Infuse 0.5 mL (25 mg) into a venous catheter daily. Prior to vancomycin infusions 06/11/2025 Active ergocalciferol 1.25 mg oral capsule (20 sources) Provitamin D2 Compound Start: 08-07-2022 End: 01-07-2023 take 1 capsule by mouth every week ergocalciferol (Vitamin D2) 1.25 MG (19693 UT) capsule TAKE 1 CAPSULE BY MOUTH ONCE WEEKLY *DO NOT START BEFORE JUL 25 3 capsule 0 08/29/2022 Active folic acid 1 mg oral tablet (20 sources) Start: 03-15-2025 End: 06-02-2025 Start: 02-14-2024 End: 02-17-2024 take 1000 ug by mouth once daily in the morning 1,000 mcg, Oral, Every morning, First dose on Sat02/14/24 at 0900 Start: 08-26-2021 End: 06-10-2025 take 1 tablet by mouth once daily in the morning folic acid (Folvite) 1 MG tablet Indications: Malnutrition, unspecified type (HCC) TAKE 1 TABLET (1,000 MCG) BY MOUTH EVERY MORNING. 90 tablet 3 03/15/2025 Active lisinopril 10 mg oral tablet (20 sources) Angiotensin Converting Enzyme Inhibitor Start: 09-05-2021 take 1 tablet by mouth once daily lisinopril (PRINIVIL;ZESTRIL) 10 MG tablet Take 1 tablet by mouth nightly 30 tablet 3 09/05/2021 Active Start: 04-19-2020 take 1 tablet by darek th once daily lisinopril (PRINIVIL;ZESTRIL) 10 MG tablet Take 1 tablet by mouth daily 30 tablet 11 04/19/2020 Active Start: 08-17-2019 take 1 tablet by darek th once daily lisinopril (PRINIVIL;ZESTRIL) 5 MG tablet Indications: Essential hypertension TAKE 1 TABLET BY MOUTH DAILY 90 tablet 3 08/17/2019 Active Start: 09-25-2018 take 1 tablet by darek th once daily lisinopril (PRINIVIL;ZESTRIL) 5 MG tablet Indications: Essential hypertension TAKE 1 TABLET BY MOUTH DAILY 90 tablet 3 09/25/2018 Active losartan potassium 25 mg ora l tablet (20 sources) Angiotensin 2 Receptor Amira Start: 03-15-2025 Start: 09-10-2024 End: 09-16-2024 take 12.5 mg by mouth once daily 12.5 mg, Oral, Daily, First dose on Autumn 09/10/24 at 1835 Start: 08-22-2024 End: 02-18-2025 take 0.5 tablet by mouth once daily losartan (Cozaar) 25 MG tablet Take 0.5 tablets (12.5 mg) by mouth daily. 15 tablet 5 08/22/2024 09/16/2024 Discontinued (Reorder) Start: 11-12-2023 End: 06-10-2025 take 1 tablet by mouth once daily losartan (Cozaar) 25 MG tablet Indications: Essential hypertension TAKE 1 TABLET BY MOUTH EVERY DAY 90 tablet 3 03/15/2025 Active mirtazapine 15 mg disintegrating oral tablet (8 sources) Start: 06-09-2025 End: 07-10-2025 take 1 tablet by mouth once daily mirtazapine (Remeron Kelsea-Tab) 15 MG disintegrating tablet Take 1 tablet (15 mg) by mouth Nightly. 06/10/2025 07/10/2025 Active mometasone-formoterol (DULERA) 100-5 MCG/ACT inhaler 2 puff (1 source) Start: 07-01-2020 mometasone-for moterol (DULERA) 100-5 MCG/ACT inhaler 2 puff Multiple Vitamins-Minerals (A Thru Z Advanced Adult) tablet (3 sources) Start: 03-02-2024 End: 04-01-2024 take 1 tablet by mouth once daily at breakfast Multiple Vitamins-Minerals (A Thru Z Advanced Adult) tablet Indications: Alcohol abuse Take 1 tablet by mouth daily (with breakfast). 30 tablet 03/02/2024 04/01/2024 Active Multiple Vitamins-Minerals (CENTRUM ADULTS PO) (20 sources) Multiple Vitamins-Minerals (CENTRUM ADULTS PO) Take by mouth 0 Suspended Multiple Vitamin s-Minerals (CENTRUM ADULTS PO) Take by mouth 0 Active [place]-3 Fatty Acids (OMEGA 3 500 PO) (3 sources) [place]-3 Fatty Ac ids (OMEGA 3 500 PO) Take by mouth 0 Active perflutren lipid microspheres (DEFINITY) injection 1.65 mg (1 source) Start: 07-20-20 20 End: 07-23-20 20 perflutren lipid microspheres (DEFINITY) injection 1.65 mg salmon calcitonin 200 unt/actuat nasal spray (3 sources) Calcitonin Start: 10-07-19 End: 11-06-19 20 take 1 spray(s) nasal route once daily calcitonin (MIACALCIN) 200 UNIT/ACT nasal spray Indications: Osteoporosis, unspecified osteoporosis type, unspecified pathological fracture presence , Compression fracture of thoracic vertebra with routine healing, unspecified thoracic vertebral level, subsequent encounter 1 spray by Nasal route daily Alternate nostrils each day 1 Bottle 0 10/07/2019 Active spironolactone 25 mg oral tablet (20 sources) Aldosterone Antagonist Start: 05-17-20 End: 06-10-20 take 1 tablet by mouth once daily spironolactone (Aldactone) 25 MG tablet Indications: HFrEF (heart failure with reduced ejection fraction) ([facility]) TAKE 1 TABLET BY MOUTH EVERY DAY 90 tablet 1 05/17/2025 Active Start: 08-22-2024 End: 03-15-2025 take 1 tablet by mouth once daily spironolactone (Aldactone) 25 MG tablet Indications: HFrEF (heart failure with reduced ejection fraction) ([facility]) Take 1 tablet (25 mg) by mouth daily. 30 tablet 5 09/16/2024 Active Start: 07-30-2022 End: 04-15-2024 take 25 mg by mouth once daily 25 mg, Oral, Nightly, F irst dose on Autumn 09/13/22 at 2100 Start: 09-27-2020 take 1 tablet by darek th once daily spironolactone (ALDACTONE) 25 MG tablet TAKE 1 TABLET BY MOUTH DAILY 90 tablet 3 09/27/2020 Active Start: 10-26-2019 take 0.5 tablet by m outh once daily spironolactone (ALDACTONE) 25 MG tablet Indications: Hyperkalemia , Hyponatremia Take 0.5 tablets by mouth daily 90 tablet 3 10/26/2019 Active Start: 05-27-2018 take 1 tablet by darek th once daily spironolactone (ALDACTONE) 25 MG tablet TAKE 1 TABLET BY MOUTH DAILY 90 tablet 3 10/24/2018 Active thiamine 100 mg oral tablet (20 sources) Start: 05-23-2025 End: 06-10-2025 take 1 tablet by mouth once daily thiamine (Vitamin B1) 100 MG tablet Take 1 tablet (100 mg) by mouth daily. 06/03/2025 Active Start: 05-20-2025 End: 05-23-2025 Start: 08-20-2024 End: 08-22-2024 take 100 mg by mouth once daily 100 mg, Oral, Daily, F irst dose on Autumn 08/20/24 at 0900 Start: 04-09-2022 End: 03-03-2024 take 100 mg by mouth once daily 100 mg, Oral, Daily, F irst dose on Autumn 09/13/22 at 0900 Start: 08-26-2021 End: 09-27-2021 take 1 tablet by mouth once daily thiamine 100 MG tablet Take 1 tablet by mouth daily 30 tablet 3 08/26/2021 09/27/2021 Discontinued 10 actuat tiotropium 0.0025 mg/actuat inhalation spray (20 sources) Anticholinergic Start: 06-03-2025 End: 06-03-2026 take 2 puff(s) by inhalation once daily tiotropium (Spiriva Respimat) 2.5 MCG/ACT inhaler Inhale 2 puffs daily. 06/03/2025 06/03/2026 Active Start: 05-22-2025 End: 06-03-2026 Start: 11-02-2024 End: 11-03-2024 take 2 puff(s) by inhalation once daily 2 puff, Inhalation, Daily, First dose on Sat11/02/24 at 0900 Start: 09-10-2024 End: 09-16-2024 2 puff, Inhalation, Daily, F irst dose on Autumn 09/10/24 at 1835, Instruct to hold breath for 10 seconds after each inhalation. Before first use, prime inhaler by actuating until aerosal cloud is seen, then actuating 3 more times. Start: 08-20-2024 End: 08-22-2024 take 2 puff(s) by inhalation once daily 2 puff, Inhalation, Daily, First dose on Autumn 08/20/24 at 0900 Start: 02-17-2024 End: 02-17-2024 2 puff, Inhalation, Daily, F irst dose on Sat02/17/24 at 1200, Instruct to hold breath for 10 seconds after each inhalation. Before first use, prime inhaler by actuating until aerosal cloud is seen, then actuating 3 more times. Start: 11-12-2023 End: 11-14-2023 2 puff, Inhalation, Daily, F irst dose on Sat11/12/23 at 0900, Instruct to hold breath for 10 seconds after each inhalation. Before first use, prime inhaler by actuating until aerosal cloud is seen, then actuating 3 more times. Start: 09-14-2022 End: 04-15-2024 tiotropium (Spiriva Respimat ) 1.25 MCG/ACT inhaler Indications: Chronic bronchitis, unspecified chronic bronchitis type (HCC) Inhale 2 puffs daily. 4 g 1 03/02/2024 04/15/2024 Discontinued (Ineffective) tiotropium (Spiriva Respimat) 2.5 MCG/ACT inhaler (4 sources) Start: 06-03-2025 End: 06-03-2026 take 2 puff(s) by inhalation once daily tiotropium (Spiriva Respimat) 2.5 MCG/ACT inhaler Inhale 2 puffs daily. 06/03/2025 06/03/2026 Active tiZANidine 4 mg oral tablet (7 sources) Central alpha-2 Adrenergic Agonist Start: 11-21-2020 take 1 tablet by mouth once daily as needed for muscle spasms tiZANidine (ZANAFLEX) 4 MG tablet Indications: Chronic bilateral low back pain without sciatica Take 1 tablet by mouth nightly as needed (back spasms) 10 tablet 0 11/21/2020 Active torsemide 10 mg oral tablet (20 sources) Loop Diuretic Start: 06-10-2025 End: 06-10-2026 take 3 tablets by mouth once daily torsemide (Demadex) 10 MG tablet Take 3 tablets (30 mg) by mouth daily. 06/10/2025 06/10/2026 Active Start: 06-06-2025 End: 06-08-2025 Start: 06-02-2025 End: 06-10-2026 take 3 tablets by mouth twice daily torsemide (Demadex) 10 MG tablet Take 3 tablets (30 mg) by mouth 2 times daily. 06/02/2025 06/10/2025 Discontinued Start: 12-14-2024 End: 06-02-2025 Start: 11-02-2024 End: 11-03-2024 take 20 mg by mouth once daily 20 mg, Oral, Daily, Fir st dose on Sat11/02/24 at 0900 Start: 09-28-2024 End: 11-03-2024 take 2.5 tablets by mouth twice daily torsemide (Demadex) 20 MG tablet Take 2.5 tablets (50 mg) by mouth 2 times daily for 7 days. 35 tablet 09/28/2024 11/03/2024 Discontinued (Stop taking at discharge) Start: 09-16-2024 End: 11-15-2024 take 2 tablets by mouth twice daily in the evening torsemide (Demadex) 20 MG tablet Take 2 tablets (40 mg) by mouth 2 times daily. 120 tablet 2 09/16/2024 2:50 PM EST 09/16/2024 11/03/2024 Discontinued (Stop taking at discharge) Start: 03-30-2020 End: 09-16-2024 take 20 mg by mouth twice daily 20 mg, Oral, 2 times d aily, First dose on 08/22/24 at 0845 Start: 12-23-2019 take 2 tablets by mo uth twice daily torsemide (DEMADEX) 20 MG tablet Take 2 tablets by mouth 2 times daily 120 tablet 3 12/23/2019 Suspended take 1 tablet by darek th once daily torsemide (DEMADEX) 20 MG tablet Take 20 mg by mouth daily 0 Active triamcinolone acetonide 0.001 mg/mg topical ointment (3 sources) Corticosteroid Start: 10-27-2017 triamcinolone (KENALOG) 0.1 % ointment APPLY TOPICALLY 2 TIMES DAILY FOR 7 DAYS 1 10/27/2017 Active Vancomycin (7 sources) Glycopeptide Antibacterial Start: 06-03-2025 vancomycin IVPB 1500 mg in 250 mL NS (premix) Infuse 250 mL (1,500 mg) into a venous catheter Every 24 hours. 06/03/2025 Active Start: 07-01-2020 End: 07-01-2020 vancomycin (VANCOCIN) 1000 m g in dextrose 5% 200 mL IVPB varenicline 0.5 mg oral tablet (6 sources) Partial Cholinergic Nicotinic Agonist Start: 10-26-2019 take 1 tablet by mouth once, then take 2 tablets by mouth varenicline (CHANTIX STARTING ) 0.5 MG X 11 & 1 MG X 42 tablet Indications: Tobacco abuse Take by mouth. 1 box 0 10/26/2019 Active Start: 09-15-2019 take 1 tablet by darek th once, then take 2 tablets by mouth varenicline (CHANTIX STARTING MONTH MYNOR) 0.5 MG X 11 & 1 MG X 42 tablet Indications: Tobacco abuse Take by mouth. 1 box 0 09/15/2019 Active (4 sources) Start: 06-03-2025 End: 06-02-2025 Start: 05-22-2025 End: 06-02-2025 Completed/Discontinued Medications Medication Drug Class(es) Dates Sig (Normalized) Sig (Original) acetaminophen 325 mg oral tablet (20 sources) Start: 05-25-2025 End: 06-02-2025 take 650 mg by mouth every four hours as needed for pain Start: 05-20-2025 End: 05-21-2025 Start: 11-01-2024 End: 11-03-2024 take 1 tablet by mouth every six hours as needed for pain and fever acetaminophen (Tylenol) tablet 650 mg Start: 09-10-2024 End: 09-16-2024 take 1 tablet by mouth every six hours as needed for pain and fever acetaminophen (Tylenol) tablet 650 mg Start: 08-19-2024 End: 08-22-2024 take 1 tablet by mouth every six hours as needed for pain and fever acetaminophen (Tylenol) tablet 650 mg Start: 02-13-2024 End: 02-17-2024 take 1 tablet by mouth every six hours as needed for pain and fever acetaminophen (Tylenol) tablet 650 mg Start: 11-12-2023 End: 11-14-2023 take 1 tablet by mouth every six hours as needed for pain and fever acetaminophen (Tylenol) tablet 650 mg Start: 01-01-2023 End: 01-31-2023 take 2 tablets by mouth every eight hours acetaminophen (Tylenol) 500 MG tablet Take 2 tablets (1,000 mg) by mouth in the morning and 2 tablets (1,000 mg) at noon and 2 tablets (1,000 mg) before bedtime. 180 tablet 0 01/01/2023 01/31/2023 Start: 12-29-2022 End: 01-01-2023 take 1 tablet by mouth every eight hours acetaminophen (Tylenol) tablet 1,000 mg Start: 09-13-2022 End: 09-14-2022 take 1 tablet by mouth every six hours as needed for pain and fever acetaminophen (Tylenol) tablet 650 mg Start: 07-19-2021 take 1 tablet by darek th every eight hours as needed for pain acetaminophen ([facility] ACETAMINOPHEN EX ST) 500 MG tablet Indications: Chronic bilateral low back pain without sciatica Take 1 tablet by mouth every 8 hours as needed for Pain 90 tablet 3 07/19/2021 Active Start: 02-09-2021 take 2 tablets by mo uth every eight hours as needed for pain ACETAMINOPHEN EXTRA STRENGTH 500 MG tablet Indications: Chronic bilateral low back pain without sciatica TAKE 2 TABLETS BY MOUTH EVERY 8 HOURS NEEDED FOR PAIN 90 tablet 0 02/09/2021 Active Start: 12-28-2020 take 2 tablets by mo uth every eight hours as needed for pain acetaminophen (TYLENOL) 500 MG tablet Indications: Compression fracture of L1 vertebra, initial encounter ([facility]) Take 2 tablets by mouth every 8 hours as needed for Pain 90 tablet 0 12/28/2020 Active Start: 11-29-2020 take 2 tablets by mo uth every eight hours as needed for pain acetaminophen (TYLENOL) 500 MG tablet Indications: Compression fracture of L1 vertebra, initial encounter ([facility]) Take 2 tablets by mouth every 8 hours as needed for Pain 90 tablet 0 11/29/2020 Active Start: 07-01-2020 take 1000 mg by mout h every eight hours as needed for pain, then take 4000 mg by mouth every twenty-four hours as needed for pain 1,000 mg, Oral, EVERY 8 HOURS PRN, Pain Moderate (4-6), Starting 07/01/20 at 1159 Maximum dose of acetaminophen is 4000 mg from all sources in 24 hours. Start: 11-04-2019 take 2 tablets by mo uth every eight hours as needed for pain acetaminophen (TYLENOL) 500 MG tablet Indications: Compression fracture of L1 vertebra, initial encounter ([facility]) Take 2 tablets by mouth every 8 hours as needed for Pain 90 tablet 0 11/04/2019 Active Start: 10-05-2019 take 2 tablets by mo uth three times daily acetaminophen (TYLENOL) 500 MG tablet Indications: Compression fracture of L1 vertebra, initial encounter ([facility]) Take 2 tablets by mouth 3 times daily 180 tablet 0 10/05/2019 Active acetaminophen 325 mg / oxyCODONE hydrochloride 5 mg oral tablet (5 sources) Opioid Agonist Start: 02-13-2024 End: 02-13-2024 1 tablet, Oral, Once, On Autumn 02/13/24 at 1805, For 1 dose, Maximum dose of acetaminophen is 4000 mg from all sources in 24 hours. Start: 12-26-2022 End: 01-01-2023 take 1 tablet by mouth every six hours as needed for pain oxyCODONE-acetaminophen (Percocet) 5-325 MG tablet Indications: Other closed displaced fracture of proximal end of left humerus, initial encounter Take 1 tablet by mouth every 6 hours as needed for severe pain (7-10) for up to 4 days. 12 tablet 0 12/26/2022 01/01/2023 Discontinued (Stop taking at discharge) 20 ml albumin human, assisted 250 mg/ml injection (5 sources) Human Serum Albumin Start: 06-04-2025 End: 06-04-2025 Start: 06-04-2025 End: 06-04-2025 Start: 05-21-2025 End: 05-21-2025 Start: 12-30-2022 End: 12-30-2022 albumin human 25 % IV soluti on 50 g albuterol 0.833 mg/ml / ipratropium bromide 0.167 mg/ml inhalation solution (20 sources) Anticholinergic, beta2-Adrenergic Agonist Start: 06-04-2025 End: 06-10-2025 Start: 05-20-2025 End: 06-02-2025 Start: 11-01-2024 End: 11-03-2024 3 mL, Nebulization, Every 4 hours PRN, shortness of breath, wheezing, Starting on Sat11/01/24 at 2227 Start: 11-01-2024 End: 11-01-2024 3 mL, Nebulization, Once, On Sat11/01/24 at 1505, For 1 dose Start: 09-10-2024 End: 09-16-2024 3 mL, Nebulization, Every 4 hours while awake, First dose (after last modification) on Sat09/16/24 at 0800 Start: 09-10-2024 End: 09-10-2024 3 mL, Nebulization, Once, On Autumn 09/10/24 at 1615, For 1 dose Start: 08-19-2024 End: 08-22-2024 3 mL, Nebulization, Every 4 hours PRN, shortness of breath, wheezing, Starting on Sat08/19/24 at 2204 Start: 11-14-2023 End: 11-14-2023 ipratropium-albuterol (Duo-N eb) 0.5-2.5 mg/3 mL nebulizer solution 3 mL Start: 11-14-2023 End: 11-14-2023 ipratropium-albuterol (Duo-N eb) 0.5-2.5 mg/3 mL nebulizer solution 3 mL Start: 11-12-2023 End: 11-14-2023 3 mL, Nebulization, Every 4 hours while awake, First dose on 11/12/23 at 0600 Start: 11-11-2023 ipratropium-al buterol (Duo-Neb) 0.5-2.5 mg/3 mL nebulizer solution 9 mL Start: 12-31-2022 End: 01-01-2023 ipratropium-albuterol (Duo-N eb) 0.5-2.5 mg/3 mL nebulizer solution 3 mL Start: 12-29-2022 End: 12-31-2022 3 mL, Nebulization, Every 4 hours while awake, First dose on 12/29/22 at 1815 Start: 09-14-2022 End: 04-15-2024 ipratropium-albuterol (Duo-N eb) 0.5-2.5 mg/3 mL nebulizer solution Take 3 mL by nebulization 2 times daily as needed for wheezing or shortness of breath. 1080 mL 01/01/2023 04/15/2024 Discontinued (Therapy completed) Start: 09-13-2022 End: 09-14-2022 3 mL, Nebulization, 4 times daily, First dose (after last modification) on Autumn 09/13/22 at 0800 Start: 09-12-2022 End: 09-13-2022 ipratropium-albuterol (Duo-N eb) 0.5-2.5 mg/3 mL nebulizer solution 3 mL Start: 02-25-2020 End: 02-25-2020 ipratropium-albuterol (DUONE B) nebulizer solution 1 ampule Start: 09-15-2019 take 20-100 ug by in halation every six hours COMBIVENT RESPIMAT 20-100 MCG/ACT AERS inhaler Indications: Chronic obstructive pulmonary disease, unspecified COPD type (HCC) INHALE 1 PUFF INTO THE LUNGS EVERY 6 HOURS 3 Inhaler 3 09/15/2019 Active Start: 12-18-2018 take 20-100 ug by in halation every six hours COMBIVENT RESPIMAT 20-100 MCG/ACT AERS inhaler INHALE 1 PUFF INTO THE LUNGS EVERY 6 HOURS 3 Inhaler 3 12/18/2018 Active 12 hr amoxicillin 1000 mg / clavulanate 62.5 mg extended release oral tablet (9 sources) Penicillin-class Antibacterial Start: 08-21-2024 End: 08-25-2024 take 2 tablets by mouth every twelve hours amoxicillin-clavulanate XR (Augmentin XR) 1000-62.5 MG 12 hr tablet Take 2 tablets by mouth every 12 hours for 6 doses. 12 tablet 08/22/2024 08/25/2024 apixaban 5 mg oral tablet (20 sources) Factor Xa Inhibitor Start: 05-21-2025 End: 05-23-2025 Start: 07-30-2022 End: 06-10-2025 take 1 tablet by mouth twice daily apixaban (Eliquis) 5 MG tablet Indications: Paroxysmal atrial fibrillation (HCC) Take 1 tablet (5 mg) by mouth 2 times daily. 60 tablet 11 09/16/2024 Active Start: 09-20-2020 take 1 tablet by darek th twice daily ELIQUIS 5 MG TABS tablet TAKE 1 TABLET BY MOUTH TWICE A DAY 180 tablet 3 09/20/2020 Active Start: 03-30-2020 take 1 tablet by darek twice daily apixaban (ELIQUIS) 5 MG TABS tablet Take 1 tablet by mouth 2 times daily 180 tablet 1 03/30/2020 Active ascorbic acid 200 mg / beta carotene 1000 unt / cuprous oxide 2 mg / dl-alpha tocopheryl acetate 60 unt / lutein 2 mg / sodium selenate 0.055 mg / zinc oxide 40 mg oral tablet (2 sources) Vitamin C Start: 09-13-2022 End: 09-14-2022 take 1 tablet by mouth once daily 1 tablet, Oral, Daily, First dose on Autumn 09/13/22 at 0900 aspirin 81 mg chewable tablet (14 sources) Platelet Aggregation Inhibitor, Nonsteroidal Anti-inflammatory Drug Start: 02-13-2024 End: 02-13-2024 take 324 mg by mouth once 324 mg, Oral, Once, On Autumn 02/13/24 at 1925, For 1 dose take 1 tablet by mouth once génesis y aspirin 81 MG EC tablet Take 81 mg by mouth daily 0 Active azithromycin (Zithromax) 500 mg in sodium chloride 0.9 % 250 mL IVPB (ADD-Barnum) (4 sources) Start: 08-19-2024 End: 08-19-2024 500 mg, IntraVENous, Adminis ter over 60 Minutes, Once, On Sat08/19/24 at 1820, For 1 dose, ADD-Barnum bag, Suspected Indication (Select all that apply): Pneumonia (CAP) Start: 11-11-2023 End: 11-11-2023 azithromycin (Zithromax) 500 mg in sodium chloride 0.9 % 250 mL IVPB (ADD-Barnum) calcium chloride 0.0014 meq/ ml / potassium chloride 0.004 meq/ml / sodium chloride 0.103 meq/ml / sodium lactate 0.028 meq/ml injectable solution (2 sources) Start: 05-21-2025 End: 05-21-2025 100 ml calcium gluconate 20 mg/ml injection (5 sources) Start: 05-24-2025 End: 05-24-2025 Start: 05-22-2025 End: 05-22-2025 Start: 12-30-2022 End: 12-30-2022 calcium gluconate 2000 mg in 100 mL IVPB premix cefepime (Maxipime) 2,000 mg in sodium chloride 0.9 % 50 mL IVPB Mini-Bag Plus (4 sources) Start: 08-20-2024 End: 08-20-2024 take 2000 mg intravenously every eight hours 2,000 mg, IntraVENous, at 12.5 mL/hr, Administer over 240 Minutes, Every 8 hours, First dose on Autumn 08/20/24 at 0000, For 2 days, Mini-Bag Plus bag, Suspected Indication (Select all that apply): Pneumonia (CAP) Start: 11-11-2023 End: 11-11-2023 cefepime (Maxipime) 2,000 mg in sodium chloride 0.9 % 50 mL IVPB Mini-Bag Plus cefTRIAXone (Rocephin) 1,000 mg in sodium chloride 0.9 % 50 mL IVPB Mini-Bag Plus (2 sources) Start: 08-19-2024 End: 08-19-2024 1,000 mg, IntraVENous, at 100 mL/hr, Administer over 30 Minutes, Once, On Sat08/19/24 at 1820, For 1 dose, Mini-Bag Plus bag, Suspected Indication (Select all that apply): Pneumonia (CAP) cefTRIAXone (Rocephin) 2,000 mg in sodium chloride 0.9 % 50 mL IVPB Mini-Bag Plus (2 sources) Start: 08-20-2024 End: 08-21-2024 2,000 mg, IntraVENous, at 100 mL/hr, Administer over 30 Minutes, Every 24 hours, First dose (after last modification) on Autumn 08/20/24 at 1900, For 5 days, Mini-Bag Plus bag, Suspected Indication (Select all that apply): Pneumonia (CAP) cetirizine hydrochloride 10 mg oral tablet (2 sources) Histamine-1 Receptor Antagonist Start: 06-07-2025 End: 06-10-2025 Chlorhexidine (2 sources) Start: 06-04-2025 End: 06-10-2025 cholecalciferol 9.52 unt/ml / glucose 357 mg/ml oral gel (2 sources) Vitamin D Start: 06-04-2025 End: 06-10-2025 collagenase 0.25 unt/mg topical ointment (6 sources) Collagen-specific Enzyme Start: 06-04-2025 End: 06-10-2025 Start: 05-25-2025 End: 06-02-2025 100 ml dexmedetomidine 0.004 mg/ml injection (2 sources) Central alpha-2 Adrenergic Agonist Start: 05-21-2025 End: 05-22-2025 12 hr dextromethorphan hydrobromide 30 mg / guaiFENesin 600 mg extended release oral tablet (2 sources) Uncompetitive A-vaxhyd-Y-asparta te Receptor Antagonist, Sigma-1 Agonist Start: 06-04-2025 End: 06-10-2025 docusate sodium 50 mg / sennosides, assisted 8.6 mg oral tablet (1 source) Start: 12-31-2022 End: 01-01-2023 senna-docusate sodium (Senokot-S) 8.6-50 MG tablet 1 tablet doxycycline hyclate 100 mg oral capsule (8 sources) Tetracycline-class Drug Start: 08-25-2024 End: 09-16-2024 doxycycline (Vibramycin) 100 MG capsule Indications: MRSA (methicillin resistant staph aureus) culture positive Take 1 capsule (100 mg) by mouth 2 times daily for 10 days. Take with at least 8 ounces (large glass) of water, do not lie down for 30 minutes after 20 capsule 08/25/2024 09/16/2024 Discontinued (Stop taking at discharge) 0.4 ml enoxaparin sodium 100 mg/ml prefilled syringe (2 sources) Low Molecular Weight Heparin Start: 08-20-2024 End: 08-22-2024 inject 40 mg by subcutaneous injection every twenty-four hours 40 mg, SubCUTAneous, Every 24 hours scheduled (Daily), First dose on Autumn 08/20/24 at 0900, Indication of Use: Prophylaxis-DVT/ PE, Indications: Prophylaxis of Venous Thromboembolism, On hold since 08/22/2024 at 1133 until manually unheld EPINEPHrine / Lidocaine (1 source) Antiarrhythmic, alpha-Adrenergic Agonist, beta-Adrenergic Agonist, Catecholamine, Amide Local Anesthetic Start: 12-29-2022 End: 12-29-2022 lidocaine-EPINEP Hrine (Xylocaine W/EPI) 1 %-1:798129 injection 5 mL 30 actuat fluticasone furoate 0.1 mg/actuat / umeclidinium 0.0625 mg/actuat / vilanterol 0.025 mg/actuat dry powder inhaler (20 sources) Anticholinergic, Corticosteroid, beta2-Adrenergic Agonist Start: 09-16-2024 End: 09-29-2024 Fluticasone-Umec lidin-Vilant (Trelegy Ellipta) 100-62.5-25 MCG/ACT aerosol powder Indications: Chronic bronchitis, unspecified chronic bronchitis type (HCC) Inhale 1 Inhalation daily. 60 each 3 09/16/2024 09/29/2024 Discontinued (Cost of medication) Start: 04-15-2024 End: 06-02-2025 Start: 04-15-2024 End: 06-02-2025 take 1 puff(s) by inhalation once daily Sdaeslrzzhl-Bqpfwoqrm-Balplh (Trelegy Ellipta) 100-62.5-25 MCG/ACT aerosol powder Inhale 1 puff daily. 2 each 04/15/2024 06/02/2025 Discontinued (Stop taking at discharge) Start: 02-27-2021 take 1 puff(s) by in halation once daily zxruzxjevzo-tszztqgbm-kaoybw (TRELEGY ELLIPTA) 100-62.5-25 MCG/INH AEPB Indications: Pulmonary emphysema, unspecified emphysema type (HCC) Inhale 1 puff into the lungs daily 1 each 5 02/27/2021 Active Start: 10-02-2019 End: 02-25-2020 take 1 puff(s) by inhalation once daily basnfhjomgl-miszrnfim-wakgrf (TRELEGY ELLIPTA) 100-62.5-25 MCG/INH AEPB Inhale 1 puff into the lungs daily 1 each 5 02/25/2020 Active 60 actuat formoterol fumarat e 0.005 mg/actuat / mometasone furoate 0.2 mg/actuat metered dose inhaler (20 sources) Corticosteroid, beta2-Adrenergic Agonist Start: 06-04-2025 End: 06-10-2025 Start: 06-02-2025 End: 06-02-2026 take 2 puff(s) by mouth twice daily mometasone-formoterol (Dulera 100) 100-5 MCG/ACT inhaler Inhale 2 puffs 2 times daily. Rinse mouth with water after use to reduce aftertaste and incidence of candidiasis. Do not swallow. 06/02/2025 06/02/2026 Active Start: 05-22-2025 End: 06-02-2026 Start: 11-01-2024 End: 11-03-2024 take 2 puff(s) by mouth twice daily 2 puff, Inhalation, 2 times daily, First dose on Sat11/01/24 at 2100, Rinse mouth with water after use to reduce aftertaste and incidence of candidiasis. Do not swallow. Start: 09-10-2024 End: 09-16-2024 take 2 puff(s) by mouth twice daily 2 puff, Inhalation, 2 times daily, First dose on Sat09/10/24 at 2000, Rinse mouth with water after use to reduce aftertaste and incidence of candidiasis. Do not swallow. Start: 08-20-2024 End: 08-22-2024 take 2 puff(s) by mouth twice daily 2 puff, Inhalation, 2 times daily, First dose on Autumn 08/20/24 at 0800, @@@LOW COUNT CANISTER - DO NOT RETURN TO PHARMACY.@@@ Rinse mouth with water after use to reduce aftertaste and incidence of candidiasis. Do not swallow. Start: 02-13-2024 End: 02-17-2024 take 2 puff(s) by mouth twice daily 2 puff, Inhalation, 2 times daily, First dose on Sat02/13/24 at 2140, Rinse mouth with water after use to reduce aftertaste and incidence of candidiasis. Do not swallow. furosemide 20 mg oral tablet (20 sources) Loop Diuretic Start: 06-05-2025 End: 06-05-2025 Start: 06-05-2025 End: 06-05-2025 Start: 06-04-2025 End: 06-04-2025 Start: 09-15-2024 End: 09-15-2024 20 mg, IntraVENous, Once, On Sat09/15/24 at 2030, For 1 dose Start: 09-11-2024 End: 09-16-2024 40 mg, IntraVENous, 3 times daily, First dose (after last modification) on Sat09/11/24 at 1035 Start: 09-10-2024 End: 09-10-2024 40 mg, IntraVENous, Once, On Sat09/10/24 at 1820, For 1 dose Start: 08-20-2024 End: 08-22-2024 40 mg, IntraVENous, 2 times daily, First dose (after last modification) on Sat08/20/24 at 2100 Start: 08-19-2024 End: 08-20-2024 40 mg, IntraVENous, Daily, F irst dose (after last modification) on Sat08/20/24 at 0600 Start: 11-13-2023 End: 11-14-2023 furosemide (Lasix) tablet 40 mg Start: 11-12-2023 End: 11-13-2023 40 mg, IntraVENous, 2 times daily, First dose on Sat11/12/23 at 0900 Start: 11-11-2023 End: 11-11-2023 furosemide (Lasix) injection 80 mg glucagon (rdna) 1 mg injection (2 sources) Antihypoglycemic Agent Start: 06-04-2025 End: 06-10-2025 50 ml glucose 50 mg/ml injection (2 sources) Start: 06-04-2025 End: 06-10-2025 12 hr guaiFENesin 600 mg extended release oral tablet (2 sources) Start: 08-19-2024 End: 08-22-2024 take 600 mg by mouth twice daily 600 mg, Oral, 2 times daily, First dose on Sat08/19/24 at 2255, For 5 days, Administer with plenty of fluids to ensure proper action. Do not crush, chew, or split. hydrocortisone 100 mg injection (4 sources) Corticosteroid Start: 05-21-2025 End: 05-22-2025 take 100 mg intravenously every twelve hours ibuprofen 400 mg oral tablet (2 sources) Nonsteroidal Anti-inflammatory Drug Start: 12-26-2022 End: 12-26-2022 ibuprofen tablet 800 mg ketamine 50 mg/ml injectable solution (2 sources) General Anesthetic Start: 05-20-2025 End: 05-20-2025 labetalol hydrochloride 5 mg/ml injectable solution (2 sources) beta-Adrenergic Amira Start: 02-13-2024 End: 02-17-2024 ammonium lactate 120 mg/ml topical lotion (2 sources) Start: 06-07-2025 End: 06-10-2025 100 ml levETIRAcetam 5 mg/ml injection (4 sources) Start: 05-21-2025 End: 05-21-2025 Start: 05-20-2025 End: 05-21-2025 LORazepam (5 sources) Benzodiazepine Start: 02-13-2024 End: 02-17-2024 LORazepam (Ativan) tablet 1 mg Start: 11-12-2023 End: 11-14-2023 LORazepam (Ativan) tablet 1 mg Start: 01-01-2023 End: 01-01-2023 take 1 tablet by mouth every six hours as needed LORazepam (Ativan) tablet 1 mg magnesium gluconate 500 mg o ral tablet (2 sources) Start: 05-25-2025 End: 05-25-2025 Start: 05-25-2025 End: 05-25-2025 magnesium oxide 400 mg oral tablet (20 sources) Start: 05-24-2025 End: 05-24-2025 Start: 04-09-2022 End: 11-14-2023 take 400 mg by mouth once daily 400 mg, Oral, Daily, F irst dose on Autumn 09/13/22 at 0900 Start: 07-20-2021 take 1 tablet by darek th once daily magnesium oxide (MAG-OX) 400 MG tablet Take 1 tablet by mouth daily 90 tablet 3 07/20/2021 Active Start: 08-12-2020 take 1 tablet by darek th once daily magnesium oxide (MAG-OX) 400 MG tablet TAKE 1 TABLET BY MOUTH EVERY DAY 90 tablet 3 08/12/2020 Active Start: 04-04-2020 End: 07-02-2020 take 1 tablet by mouth once daily magnesium oxide (MAG-OX) 400 MG tablet Take 1 tablet by mouth daily 30 tablet 1 04/04/2020 Active 100 ml magnesium sulfate 10 mg/ml injection (14 sources) Start: 06-04-2025 End: 06-04-2025 Start: 2025 End: 2025 Start: 05-21-2025 End: 05-21-2025 Start: 08-21-2024 End: 08-21-2024 4,000 mg, IntraVENous, at 25 mL/hr, Administer over 4 Hours, Once, On Sat08/21/24 at 0540, For 1 dose, Recommended infusion rate not to exceed 1,000 mg (milligrams) per hour. Start: 02-14-2024 End: 02-14-2024 4,000 mg, IntraVENous, at 25 mL/hr, Administer over 4 Hours, Once, On Sat02/14/24 at 0900, For 1 dose, Recommended infusion rate not to exceed 1,000 mg (milligrams) per hour. Start: 11-11-2023 End: 11-11-2023 magnesium sulfate IVPB premi x 2,000 mg methylPREDNISolone 40 mg injection (14 sources) Corticosteroid Start: 06-04-2025 End: 06-06-2025 take 40 mg intravenously every six hours Start: 11-01-2024 End: 11-01-2024 40 mg, IntraVENous, Once, On Sat11/01/24 at 1505, For 1 dose Start: 09-10-2024 End: 09-10-2024 40 mg, IntraVENous, Once, On Autumn 09/10/24 at 1615, For 1 dose Start: 11-11-2023 End: 11-11-2023 methylPREDNISolone sodium munoz ccinate (PF) (SOLU-Medrol) injection 125 mg Start: 09-12-2022 End: 09-12-2022 methylPREDNISolone sodium munoz ccinate (PF) (SOLU-Medrol) injection 125 mg Metoprolol (20 sources) beta-Adrenergic Amira Start: 06-04-2025 End: 06-10-2025 Start: 06-02-2025 End: 06-02-2026 take 3 tablets by mouth twice daily metoprolol succinate XL (Toprol-XL) 25 MG 24 hr tablet Take 3 tablets (75 mg) by mouth 2 times daily. Do not crush or chew. 06/02/2025 06/02/2026 Active Start: 09-10-2024 End: 06-02-2025 Start: 08-19-2024 End: 08-22-2024 take 100 mg by mouth twice daily 100 mg, Oral, 2 times daily, First dose on Sat08/19/24 at 2205, HOLD if SBP Start: 02-13-2024 End: 02-17-2024 take 100 mg by mouth twice daily 100 mg, Oral, 2 times daily, First dose on Sat02/13/24 at 2140, Do not crush or chew. Start: 11-12-2023 End: 11-14-2023 take 100 mg by mouth twice daily 100 mg, Oral, 2 times daily, First dose on Sat11/12/23 at 0045, Do not crush or chew. Start: 12-29-2022 End: 01-01-2023 take 100 mg by mouth twice daily 100 mg, Oral, 2 times daily, First dose on Sat12/29/22 at 2100 Do not crush or chew. Start: 09-13-2022 End: 09-14-2022 take 100 mg by mouth twice daily 100 mg, Oral, 2 times daily, First dose on Autumn 09/13/22 at 0900 Do not crush or chew. Start: 07-30-2022 End: 09-16-2024 take 1 tablet by mouth every twenty-four hours in the morning metoprolol succinate XL (Toprol-XL) 100 MG 24 hr tablet Indications: HFrEF (heart failure with reduced ejection fraction) ([facility]) TAKE 1 TABLET (100 MG) BY MOUTH IN THE MORNING AND 1 TABLET (100 MG) BEFORE BEDTIME. DO NOT CRUSH OR CHEW.. 180 tablet 05/31/2023 09/16/2024 Discontinued (Reorder) Start: 09-20-2020 take 1 tablet by darek th twice daily metoprolol succinate (TOPROL XL) 50 MG extended release tablet TAKE 1 TABLET BY MOUTH TWICE A DAY 180 tablet 3 09/20/2020 Active Start: 03-30-2020 take 1 tablet by darek th twice daily metoprolol succinate (TOPROL XL) 50 MG extended release tablet Take 1 tablet by mouth 2 times daily 180 tablet 1 03/30/2020 Active Start: 03-08-2020 take 1 tablet by darek th once daily metoprolol succinate (TOPROL XL) 50 MG extended release tablet Take 1 tablet by mouth daily 30 tablet 11 03/08/2020 Active Start: 12-23-2019 take 1 tablet by darek th once daily metoprolol succinate (TOPROL XL) 25 MG extended release tablet Take 1 tablet by mouth daily 30 tablet 11 12/23/2019 Suspended montelukast 10 mg oral table t (20 sources) Leukotriene Receptor Antagonist Start: 06-04-2025 End: 06-10-2025 Start: 06-03-2023 End: 06-02-2025 Start: 07-25-2022 End: 03-01-2023 take 1 tablet by mouth once daily in the evening montelukast (Singulair) 10 MG tablet Indications: Chronic bronchitis, unspecified chronic bronchitis type (HCC) TAKE 1 TABLET BY MOUTH EVERY EVENING 30 tablet 2 08/21/2022 Active Start: 08-12-2020 take 1 tablet by darek th once daily in the evening montelukast (SINGULAIR) 10 MG tablet Indications: Chronic obstructive pulmonary disease, unspecified COPD type (HCC) TAKE 1 TABLET BY MOUTH EVERY DAY IN THE EVENING 90 tablet 3 08/12/2020 Active Start: 12-15-2018 montelukast (S INGULAIR) 10 MG tablet Indications: Chronic obstructive pulmonary disease, unspecified COPD type (HCC) TAKE 1 TABLET EVERY DAY IN THE EVENING 90 tablet 3 12/15/2018 Active 1 ml morphine sulfate 4 mg/ml cartridge (1 source) Opioid Agonist Start: 12-30-2022 End: 12-31-2022 take 1 mg intravenously every four hours as needed for pain morphine injection 1 mg Multiple Vitamins-Mineral s (Therapeutic-M/L utein) tablet (20 sources) Start: 08-14-2022 End: 03-02-2024 Multiple Vitamins-Minerals (Therapeutic-M/Lut ein) tablet TAKE 1 TABLET BY MOUTH IN THE MORNING, 1 TABLET AT NOON, AND 1 TABLET BEFORE BEDTIME 90 tablet 11 08/14/2022 03/02/2024 Discontinued (Reorder) Start: 08-14-2022 Multiple Vitam ins-Minerals (Therapeutic-M/Lutein) tablet TAKE 1 TABLET BY MOUTH IN THE MORNING, 1 TABLET AT NOON, AND 1 TABLET BEFORE BEDTIME 90 tablet 11 08/14/2022 Active mupirocin 0.02 mg/mg topical ointment (2 sources) RNA Synthetase Inhibitor Antibacterial Start: 05-20-2025 End: 05-25-2025 24 hr nicotine 0.583 mg/hr transdermal system (15 sources) Cholinergic Nicotinic Agonist Start: 06-04-2025 End: 06-10-2025 Start: 11-01-2024 End: 11-03-2024 Start: 09-10-2024 End: 09-16-2024 apply 1 dose transdermal route once daily at bedtime 1 patch, TransDERmal, Administer over 24 Hours, Daily, First dose on Sat09/10/24 at 1835, Apply new patch to nonhairy, clean, dry skin on the upper body or upper outer arm. Rotate patch sites. Notify Pharmacy if patient or provider prefers patch to be removed at bedtime and replaced in the morning. Start: 08-20-2024 End: 08-22-2024 nicotine (Nicoderm, Step 1) 21 MG/24HR patch 1 patch Start: 02-14-2024 End: 02-17-2024 apply 1 dose transdermal route once daily at bedtime 1 patch, TransDERmal, Administer over 24 Hours, Daily, First dose on Sat02/14/24 at 0900, Apply new patch to nonhairy, clean, dry skin on the upper body or upper outer arm. Rotate patch sites. Notify Pharmacy if patient or provider prefers patch to be removed at bedtime and replaced in the morning. Start: 11-12-2023 End: 11-14-2023 nicotine (Nicoderm, Step 1) 21 MG/24HR patch 1 patch Start: 12-29-2022 End: 01-01-2023 nicotine (Nicoderm, Step 1) 21 MG/24HR patch 1 patch Start: 09-13-2022 End: 09-14-2022 nicotine (Nicoderm, Step 2) 14 MG/24HR patch 1 patch ondansetron ODT (Zofran-ODT) disintegrating tablet 4 mg (2 sources) Start: 09-10-2024 End: 09-16-2024 take 1 tablet by mouth every eight hours as needed for nausea and vomiting ondansetron ODT (Zofran-ODT) disintegrating tablet 4 mg oxyCODONE hydrochloride 5 mg oral tablet (13 sources) Opioid Agonist Start: 12-31-2022 End: 01-08-2023 take 1 tablet by mouth every six hours as needed for pain oxyCODONE (Roxicodone) 5 MG immediate release tablet Indications: Other closed displaced fracture of proximal end of left humerus, initial encounter , Other osteoporosis, unspecified pathological fracture presence Take 1 tablet (5 mg) by mouth every 6 hours as needed for severe pain (7-10) for up to 7 days. 15 tablet 0 01/01/2023 01/08/2023 pantoprazole 40 mg delayed release oral tablet (1 source) Proton Pump Inhibitor Start: 12-30-2022 End: 01-01-2023 take 40 mg by mouth once daily in the morning 40 mg, Oral, Every morning, First dose on 12/30/22 at 0900 Do not crush, chew, or split. perflutren protein A microsphere (Optison) 3 mL in sodium chloride (PF) 0.9 % 10 mL IV syringe (2 sources) Start: 11-12-2023 End: 11-12-2023 0-10 mL, IntraVENous, IMG once PRN, other, Suboptimal echo image, Starting on Sat11/12/23 at 0040, For 1 dose, CV Procedural Medications, Administer via slow IVP for suboptimal echocardiogram enhancement. May administer as divided doses to reach optimal image enhancement PHENobarbital 32 mg oral tablet (2 sources) Start: 08-19-2024 End: 08-19-2024 take 64.8 mg by mouth once 64.8 mg, Oral, Once, On Sat08/19/24 at 1840, For 1 dose polyethylene glycol 3350 24694 mg powder for oral solution (20 sources) Osmotic Laxative Start: 06-04-2025 End: 06-10-2025 take 17 g by mouth every twenty-four hours as needed for constipation Start: 11-01-2024 End: 11-03-2024 take 17 g by mouth every twenty-four hours as needed for constipation Start: 09-10-2024 End: 09-16-2024 take 17 g by mouth every twenty-four hours as needed for constipation Start: 08-19-2024 End: 08-22-2024 take 17 g by mouth every twenty-four hours as needed for constipation Start: 02-13-2024 End: 02-17-2024 take 17 g by mouth every twenty-four hours as needed for constipation Start: 11-12-2023 End: 11-14-2023 take 17 g by mouth every twenty-four hours as needed for constipation 17 g, Oral, Daily PRN, constipation, Starting on Sat11/12/23 at 0040, 1st line for treatment of constipation - give scheduled if no bowel movement in past 24 hours. Start: 12-29-2022 End: 01-31-2023 take 17 g by mouth once daily polyethylene glycol, PEG , 3350 (Miralax) 17 g packet Take 17 g by mouth daily. 30 packet 0 01/01/2023 01/31/2023 Start: 09-13-2022 End: 09-14-2022 take 17 g by mouth every twenty-four hours as needed for constipation 17 g, Oral, Daily PRN, constipation, Starting on Sat09/13/22 at 0329 1st line for treatment of constipation - give scheduled if no bowel movement in past 24 hours. potassium bicarbonate 20 meq effervescent oral tablet (1 source) Start: 12-30-2022 End: 01-01-2023 Potassium Bicarb-Citric Acid (Effer-K) 20 MEQ effervescent tablet 20 mEq microencapsulated potassium chloride 10 meq extended release oral tablet (20 sources) Start: 06-01-2025 End: 06-01-2025 take 40 mEq by mouth every six hours Start: 05-30-2025 End: 05-30-2025 Start: 05-25-2025 End: 05-25-2025 Start: 05-22-2025 End: 05-22-2025 Start: 05-21-2025 End: 05-21-2025 Start: 05-21-2025 End: 05-21-2025 Start: 08-22-2024 End: 08-22-2024 take 1 [oz_av] by mouth once 40 mEq, Oral, Once, On Sa t 08/22/24 at 0730, For 1 dose, Dissolve each packet in 4 ounces of water = 5 mEq per 1 oz fluid. Start: 08-21-2024 End: 08-21-2024 take 1 [oz_av] by mouth once 40 mEq, Oral, Once, On Fr i 08/21/24 at 0540, For 1 dose, Dissolve each packet in 4 ounces of water = 5 mEq per 1 oz fluid., Indications: Hypokalemia Start: 12-31-2022 End: 12-31-2022 potassium chloride IVPB 10 m Eq take 20 mEq by mouth once Potass ium Chloride 20 MEQ/15ML (10%) solution Take 20 mEq by mouth Once. Active take 20 mEq by mouth twice daily potassium chloride (KLOR-CON) 20 MEQ packet Take 20 mEq by mouth 2 times daily 0 Active potassium phosphate 155 mg / sodium phosphate, dibasic 852 mg / sodium phosphate, monobasic 130 mg oral tablet (2 sources) Start: 05-24-2025 End: 05-24-2025 take 500 mg by mouth every four hours predniSONE 10 mg oral tablet (20 sources) Start: 06-10-2025 End: 06-18-2025 take 2 tablets by mouth once daily, then take 1 tablet by mouth once daily predniSONE (Deltasone) 10 MG tablet Take 2 tablets (20 mg) by mouth daily for 5 days, THEN 1 tablet (10 mg) daily for 3 days. 13 tablet 06/10/2025 06/18/2025 Start: 06-08-2025 End: 06-10-2025 Start: 05-23-2025 End: 05-25-2025 Start: 11-12-2023 End: 11-16-2023 take 1 tablet by mouth once daily predniSONE (Deltasone) 50 MG tablet Take 1 tablet (50 mg) by mouth daily for 1 dose. 1 tablet 0 11/15/2023 11/16/2023 Active Start: 09-15-2022 End: 09-18-2022 predniSONE (Deltasone) 20 MG tablet Take 2 tablets (40 mg) by mouth daily for 3 doses. Do not start before September 15, 2022. 6 tablet 0 09/15/2022 09/18/2022 Active Start: 09-13-2022 End: 09-14-2022 predniSONE (Deltasone) table t 40 mg Start: 11-29-2020 End: 12-04-2020 take 1 tablet by mouth twice daily predniSONE (DELTASONE) 20 MG tablet Indications: Chronic bilateral low back pain without sciatica Take 1 tablet by mouth 2 times daily for 5 days 10 tablet 0 11/29/2020 12/04/2020 Active Start: 02-25-2020 End: 03-01-2020 take 2 tablets by mouth once daily predniSONE (DELTASONE) 20 MG tablet Take 2 tablets by mouth daily for 5 days 10 tablet 0 02/25/2020 03/01/2020 Active Prochlorperazine (2 sources) Phenothiazine Start: 08-19-2024 End: 08-22-2024 take 1 tablet by mouth every six hours as needed for nausea and vomiting prochlorperazine (Compazine) tablet 10 mg Promethazine (3 sources) Phenothiazine Start: 11-12-2023 End: 11-14-2023 take 1 tablet by mouth every six hours as needed for nausea and vomiting promethazine (Phenergan) tablet 25 mg Start: 12-31-2022 End: 01-01-2023 take 1 tablet by mouth every six hours as needed for nausea and vomiting promethazine (Phenergan) tablet 12.5 mg 100 ml propofol 10 mg/ml injection (2 sources) General Anesthetic Start: 05-20-2025 End: 05-22-2025 rocuronium bromide 10 mg/ml injectable solution (2 sources) Nondepolarizing Neuromuscular Amira Start: 05-20-2025 End: 05-20-2025 rosuvastatin calcium 20 mg oral tablet (20 sources) HMG-CoA Reductase Inhibitor Start: 06-04-2025 End: 06-10-2025 Start: 05-21-2025 End: 06-02-2025 Start: 11-02-2024 End: 03-04-2025 take 40 mg by mouth once daily 40 mg, Oral, Daily, Fir st dose on 11/02/24 at 0900 Start: 09-10-2024 End: 09-16-2024 take 40 mg by mouth once daily 40 mg, Oral, Daily, Fir st dose on Autumn 09/10/24 at 1835 Start: 02-13-2024 End: 02-17-2024 take 40 mg by mouth once daily 40 mg, Oral, Nightly, F irst dose on Sat02/13/24 at 2140, On hold since Sat02/14/2024 at 2122 until manually unheld Start: 11-12-2023 End: 11-14-2023 take 40 mg by mouth once daily 40 mg, Oral, Nightly, F irst dose on Sat11/12/23 at 0045 Start: 12-29-2022 End: 01-01-2023 take 40 mg by mouth once daily 40 mg, Oral, Nightly, F irst dose on Sat12/29/22 at 2100 Start: 09-13-2022 End: 09-14-2022 take 40 mg by mouth once daily 40 mg, Oral, Nightly, F irst dose on Sat09/13/22 at 2100 Start: 07-30-2022 End: 05-17-2025 take 1 tablet by mouth once daily rosuvastatin (Crestor) 40 MG tablet Indications: Essential hypertension TAKE 1 TABLET BY MOUTH EVERY DAY 90 tablet 1 05/17/2025 Active sacubitril 49 mg / valsartan 51 mg oral tablet (20 sources) Angiotensin 2 Receptor Amira Start: 09-14-2022 End: 01-07-2023 take 49-51 mg by mouth twice daily sacubitril-valsartan (Entresto) 49-51 MG tablet Take 1 tablet by mouth 2 times daily. 180 tablet 0 09/14/2022 01/07/2023 Discontinued (Patient refused) Start: 09-13-2022 End: 09-14-2022 sacubitril-valsartan (Entres to) 49-51 MG per tablet 1 tablet Start: 09-13-2022 End: 09-13-2022 take 1 tablet by mouth twice daily 1 tablet, Oral, 2 times daily, First dose on Autumn 1/12/23 at 0900 Contraindicated in combination with KINSEY inhibitors. Ensure a minimum of 36 hours between any KINSEY inhibitor dose and sacubitril-valsartan. Start: 07-30-2022 End: 09-14-2022 take 1 tablet by mouth in the morning sacubitril-valsartan (Entresto) 24-26 MG tablet Indications: HFrEF (heart failure with reduced ejection fraction) (CMS/HCC) (HCC) Take 1 tablet by mouth in the morning and 1 tablet before bedtime. 180 tablet 1 07/30/2022 09/14/2022 Discontinued (Stop taking at discharge) sertraline 100 mg oral table t (20 sources) Serotonin Reuptake Inhibitor Start: 05-22-2025 End: 05-23-2025 Start: 07-01-2020 take 100 mg by mouth once génesis y 100 mg, Oral, DAILY, First dose on Sat07/01/20 at 1215 Start: 07-22-2018 End: 06-10-2025 take 1 tablet by mouth once daily sertraline (Zoloft) 100 MG tablet Indications: Persistent depressive disorder TAKE 1 TABLET BY MOUTH EVERY DAY 90 tablet 1 05/30/2025 06/10/2025 Discontinued (Stop taking at discharge) 5 ml sodium chloride 9 mg/ml injection (20 sources) Start: 06-10-2025 End: 06-10-2025 take 10 mL intraluminal route every twelve hours Start: 06-04-2025 End: 06-10-2025 Start: 06-04-2025 End: 06-04-2025 Start: 06-04-2025 End: 06-10-2025 Start: 06-04-2025 End: 06-10-2025 take 5-40 mL intravenously every twelve hours Start: 06-02-2025 End: 06-04-2025 take 10 mL intraluminal route every twelve hours sodium chloride 0.9% (NS) 0.9 % flush 10 mL by IntraCATHeter route every 12 hours. 06/02/2025 06/04/2025 Discontinued (Therapy completed) Start: 05-21-2025 End: 06-04-2025 sodium chloride 0.9% (NS) 0. 9 % flush 10 mL by IntraCATHeter route as needed for line care (before blood draws, before and after infusion or medication administration). 06/02/2025 06/04/2025 Discontinued (Therapy completed) Start: 05-21-2025 End: 06-02-2025 Start: 05-20-2025 End: 05-20-2025 Start: 09-12-2024 End: 09-12-2024 2 g, Oral, Once, On Sat 09/12 at 1700, For 1 dose Start: 02-13-2024 End: 02-17-2024 5-40 mL, IntraVENous, PRN, l ine care, After every IV line use, Starting on Autumn 02/13/24 at 1755, For Line Patency: Peripheral IV = 5 mL; Midline or Central Line = 10 mL/lumen. If following IV push medication, administer flush at same rate as the IV push. Flush volume is determined by type of infusion therapy being given. For non-viscous solutions use: Peripheral IV = 5 mL Midline or Central Line = 10 mL/lumen For viscous solutions (i.e. blood components, parenteral nutrition, contrast media, or after obtaining blood sample) use: Peripheral IV = 10 mL Midline or Central Line = 20 mL/lumen Start: 12-30-2022 End: 12-31-2022 sodium chloride 0.9 % infusi on Start: 12-29-2022 End: 12-30-2022 take 125 mL intravenously every hour 125 mL/hr, IntraVENous, Continuous, Starting on 12/29/22 at 1815, For 23 hours Start: 12-29-2022 End: 12-29-2022 sodium chloride 0.9 % infusi on Start: 12-29-2022 End: 12-30-2022 sodium chloride 0.9 % bolus 1,000 mL Start: 09-12-2022 End: 09-13-2022 sodium chloride 0.9 % bolus 1,000 mL Start: 07-20-2020 End: 07-23-2020 sodium chloride flush 0.9 % injection 10 mL Start: 07-01-2020 0.9 % sodium c hloride infusion Start: 07-01-2020 sodium chlorid e flush 0.9 % injection 10 mL Start: 05-25-2020 0.9 % sodium c hloride infusion Start: 05-25-2020 sodium chlorid e flush 0.9 % injection 10 mL Start: 10-27-2019 0.9 % sodium c hloride infusion therapeutic multivitamin-minerals (Theragran-M) tablet (6 sources) Start: 02-14-2024 End: 02-17-2024 take 1 tablet by mouth once daily 1 tablet, Oral, Daily, First dose on Sat02/14/24 at 0900 Start: 11-12-2023 End: 11-14-2023 take 1 tablet by mouth once daily 1 tablet, Oral, Daily, First dose on Sat11/12/23 at 0900 Start: 12-29-2022 End: 01-01-2023 take 1 tablet by mouth once daily 1 tablet, Oral, Daily, First dose on 12/29/22 at 1900 Start: 07-19-2022 End: 08-14-2022 therapeutic multivitamin-min erals (Theragran-M) tablet Take 1 tablet by mouth in the morning and 1 tablet at noon and 1 tablet before bedtime. 90 tablet 11 07/19/2022 08/14/2022 Discontinued vitamin k1 5 mg oral tablet (2 sources) Warfarin Reversal Agent, Vitamin K Start: 02-14-2024 End: 02-16-2024 take 10 mg by mouth once daily 10 mg, Oral, Daily, First dose on Sat02/14/24 at 1030, For 3 doses zinc gluconate 50 mg oral tablet (1 source) End: 07-21-2019 take 1 tablet by mouth once daily zinc gluconate 50 MG tablet Take 50 mg by mouth daily 0 07/21/2019 Discontinued (LIST CLEANUP) (12 sources) Start: 06-04-2025 End: 06-05-2025 Start: 06-03-2025 Start: 05-31-2025 End: 06-02-2025 Start: 05-21-2025 End: 05-27-2025 Start: 05-21-2025 End: 05-21-2025 (20 sources) Start: 06-09-2025 End: 06-10-2025 Start: 06-09-2025 End: 06-10-2025 [Order 1 Start] Name: Insuli n Lispro (Humalog) injection 0-12 Units Signed Summary: 0-12 Units, SubCUTAneous, 3 times daily with meals, First dose on Sat06/09/25 at 0800, Medium Dose Correction Algorithm Glucose: Dose: LESS than 150 No Insulin 150-199 2 Units 200-249 4 Units 250-299 6 Units 300-349 8 Units 350-400 10 Units Above 400 12 Units [Order 1 End] [Order 2 Start] Name: Insulin Lispro (Humalog) injection 0-12 Units Signed Summary: 0-12 Units, SubCUTAneous, Nightly, First dose on Sat06/08/25 at 2115, If eating or bolus tube feeding: Medium Dose Correction Algorithm Glucose: Dose: LESS than 150 No Insulin 150-199 2 Units 200-249 4 Units 250-299 6 Units 300-349 8 Units 350-400 10 Units Above 400 12 Units [Order 2 End] Start: 06-06-2025 End: 06-10-2025 Start: 06-04-2025 End: 06-10-2025 Start: 06-04-2025 End: 06-10-2025 [Order 1 Start] Name: pantoprazole (ProtoNix) EC tablet 40 mg Signed Summary: 40 mg, Oral, Nightly, First dose (after last modification) on Sat06/04/25 at 2100, Do not crush, chew, or split. [Order 1 End] [Order 2 Start] Name: pantoprazole (ProtoNix) 40 mg in sodium chloride (PF) 0.9 % 10 mL injection Signed Summary: 40 mg, IntraVENous, Administer over 2 Minutes, Nightly, First dose (after last modification) on Sat06/04/25 at 2100, Give only if unable to tolerate po. [Order 2 End] Start: 06-04-2025 End: 06-06-2025 take 2000 mg intravenously every eight hours Start: 06-04-2025 End: 06-10-2025 take 25 mg by mouth every six hours as needed for nausea and vomiting [Order 1 Start] Name: promethazine (Phenergan) tablet 25 mg Signed Summary: 25 mg, Oral, Every 6 hours PRN, nausea, vomiting, Starting on Sat06/04/25 at 0405, 1st Line. If inadequate response within 60 minutes, proceed to next-line agent or contact provider if no further options ordered. [Order 1 End] [Order 2 Start] Name: promethazine (Phenergan) suppository 25 mg Signed Summary: 25 mg, Rectal, Every 12 hours PRN, nausea, vomiting, Starting on Sat06/04/25 at 0405, 1st Line. Give VA if patient is unable to take orally. If inadequate response within 60 minutes, proceed to next-line agent or contact provider if no further options ordered. [Order 2 End] [Order 3 Start] Name: promethazine (Phenergan) injection 25 mg Signed Summary: 25 mg, IntraMUSCular, Every 4 hours PRN, nausea, vomiting, Starting on Sat06/04/25 at 0405, 1st Line. Give IM if patient is unable to take orally or receive rectally. Not for IV administration. If inadequate response within 60 minutes, proceed to next-line agent or contact provider if no further options ordered. [Order 3 End] Start: 06-04-2025 End: 06-10-2025 take 650 mg by mouth every six hours as needed for pain and fever [Order 1 Start] Name: acetaminophen (Tylenol) tablet 650 mg Signed Summary: 650 mg, Oral, Every 6 hours PRN, mild pain (1-3), fever, For temp greater than 100.4 F (38 C), Starting on Sat06/04/25 at 0405, Maximum dose of acetaminophen is 4000 mg from all sources in 24 hours. [Order 1 End] [Order 2 Start] Name: acetaminophen (Tylenol) suppository 650 mg Signed Summary: 650 mg, Rectal, Every 6 hours PRN, fever, For temp greater than 100.4 F (38 C), Starting on Sat06/04/25 at 0405, Administer if oral route cannot be used. Maximum dose of acetaminophen is 4000 mg from all sources in 24 hours. [Order 2 End] Start: 05-31-2025 End: 05-31-2025 Start: 05-29-2025 End: 05-29-2025 Start: 2025 End: 06-02-2025 Start: 2025 End: 06-02-2025 [Order 1 Start] Name: pantoprazole (ProtoNix) EC tablet 40 mg Signed Summary: 40 mg, Oral, Nightly, First dose on Sat05/28/25 at 2100, Do not crush, chew, or split. [Order 1 End] [Order 2 Start] Name: pantoprazole (ProtoNix) 40 mg in sodium chloride (PF) 0.9 % 10 mL injection Signed Summary: 40 mg, IntraVENous, Administer over 2 Minutes, Nightly, First dose on Sat05/28/25 at 2100, Give only if unable to tolerate po. [Order 2 End] Start: 2025 End: 2025 Start: 05-27-2025 End: 05-30-2025 take 1000 mg intravenously every twelve hours Start: 05-27-2025 End: 05-27-2025 Start: 05-27-2025 End: 05-27-2025 Start: 05-25-2025 End: 05-26-2025 Start: 05-23-2025 End: 05-24-2025 Start: 05-23-2025 End: 05-23-2025 Start: 05-21-2025 End: 05-23-2025 Start: 05-21-2025 End: 05-21-2025 Start: 05-21-2025 End: 05-21-2025 Start: 05-21-2025 End: 05-23-2025 Start: 05-21-2025 End: 05-21-2025 Start: 05-21-2025 End: 05-21-2025 take 100 mg intravenously every twelve hours Start: 05-21-2025 End: 05-21-2025 Start: 05-21-2025 End: 2025 Start: 05-20-2025 End: 05-21-2025 take 2000 mg intravenously every eight hours (4 sources) Start: 05-21-2025 End: 05-22-2025 Start: 05-20-2025 End: 05-21-2025 (2 sources) Start: 05-20-2025 End: 05-20-2025 (2 sources) Start: 05-20-2025 End: 05-20-2025 (4 sources) Start: 06-10-2025 End: 06-10-2025 Start: 06-04-2025 End: 06-04-2025 (2 sources) Start: 06-10-2025 End: 06-10-2025 (2 sources) Start: 06-04-2025 End: 06-10-2025 Problems Active Problems Problem Classification Problem Date Documented Da te Episodic/Chronic Alcohol-related disorders (20 sources) Heavy drinker ; Translations: [Alcohol abuse] Onset: 09-10-2015 09-10-2015 Chronic Bacterial infection; unspecified site (20 sources) Bacteremia; Translations: [Bacteremia] Onset: 05-20-2025 05-24-2025 Episodic Cardiac dysrhythmias (20 sources) Atrial flutter; Translations: [Paroxysmal atrial fibrillation] Onset: 04-06-2020 04-06-2020 Chronic Chronic obstructive pulmonary disease and bronchiectasis (20 sources) Chronic obstructive lung disease; Translations: [Chronic obstructive pulmonary disease, unspecified] Onset: 09-10-2015 Resolved: 06-10-2025 09-10-2015 Chronic Chronic ulcer of skin (20 sources) Non-pressure chronic ulcer of other part of right foot with unspecified severity; Translations: [Ulcer of other part of foot] Onset: 02-17-2024 02-17-2024 Chronic Conduction disorders (20 sources) Automatic implantable cardiac defibrillator in situ; Translations: [Presence of automatic (implantable) cardiac defibrillator] Onset: 07-19-2022 09-13-2022 Chronic Congestive heart failure; nonhypertensive (20 sources) Congestive heart failure; Translations: [Chronic systolic heart failure] Onset: 01-31-2016 Resolved: 11-14-2023 01-31-2016 Chronic Deficiency and other anemia (20 sources) Anemia of chronic disease; Translations: [Anemia in other chronic diseases classified elsewhere] Onset: 01-01-2023 01-07-2023 Chronic Deficiency and other anemia (1 source) Anemia in other chronic diseases classified elsewhere; Translations: [Anemia in other chronic diseases classified elsewhere] Onset: 01-07-2023 Chronic Deficiency and other anemia (7 sources) Hemoglobin low; Translations: [Anemia, unspecified] Onset: 01-01-2023 Episodic Deficiency and other anemia (2 sources) Anemia, unspecified; Translations: [Anemia, unspecified] Onset: 07-01-2025 Episodic Diabetes mellitus with complications (20 sources) Secondary diabetes mellitus; Translations: [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] Onset: 02-17-2024 02-17-2024 Chronic Diverticulosis and diverticulitis (20 sources) Diverticulosis of large intestine without diverticulitis; Translations: [Diverticulosis of large intestine without perforation or abscess without bleeding] Onset: 10-27-2019 10-27-2019 Chronic Epilepsy; convulsions (4 sources) Neurological finding; Translations: [Unspecified convulsions] Onset: 05-20-2025 05-21-2025 Episodic Essential hypertension (20 sources) Essential hypertension; Translations: [Essential (primary) hypertension] Onset: 07-23-2018 07-23-2018 Chronic Hemorrhoids (12 sources) Internal hemorrhoids grade I; Translations: [First degree hemorrhoids] 10-27-2019 Immunizations and screening for infectious disease (10 sources) Encounter for immunization; Translations: [Other specified vaccinations against streptococcus pneumoniae [pneumococcus]] Episodic Infective arthritis and osteomyelitis (except that caused by tuberculosis or sexually transmitted disease) (20 sources) 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; Translations: [Chronic osteomyelitis with draining sinus, right ankle and foot] Onset: 06-30-2021 Resolved: 07-17-2022 06-30-2021 Chronic Mood disorders (20 sources) Depressive disorder; Translations: [Major depressive disorder, single episode, unspecified] Onset: 04-10-2017 04-10-2017 Chronic Nutritional deficiencies (20 sources) Undernutrition; Translations: [Unspecified protein-calorie malnutrition] Onset: 09-10-2024 09-16-2024 Chronic Open wounds of extremities (6 sources) Tear of skin; Translations: [Laceration without foreign body of right forearm, initial encounter] Onset: 05-20-2025 05-24-2025 Episodic Osteoarthritis (14 sources) Osteoarthritis of joint of right shoulder region; Translations: [Primary osteoarthritis, right shoulder] Onset: 06-03-2025 06-10-2025 Chronic Osteoporosis (20 sources) Osteoporosis; Translations: [Age-related osteoporosis without current pathological fracture] Onset: 10-07-2019 10-07-2019 Chronic Other aftercare (1 source) Other long winder tender (current) drug therapy; Translations: [Other long winder tender (current) drug therapy] Onset: 06-22-2025 Episodic Other circulatory disease (20 sources) Raynaud's phenomenon ; Translations: [Raynaud's syndrome without gangrene] Onset: 09-10-2015 09-10-2015 Chronic Other connective tissue disease (2 sources) Neurological symptom; Translations: [Unspecified symptoms and signs involving the nervous system] 02-13-2024 Episodic Other fractures (1 source) Open fracture of multiple left ribs; Translations: [Multiple fractures of ribs, left side, initial encounter for open fracture] Onset: 08-25-2021 08-25-2021 Episodic Other gastrointestinal disorders (17 sources) Colonic lesion; Translations: [Disease of intestine, unspecified] 10-27-2019 Episodic Other infections; including parasitic (14 sources) Infection of bloodstream; Translations: [Unspecified infectious disease] Onset: 2025 2025 Episodic Other infections; including parasitic (2 sources) Unspecified infectious disease; Translations: [Unspecified infectious disease] Onset: 05-20-2025 Episodic Other lower respiratory disease (1 source) Lung mass; Translations: [Lung nodule] Episodic Other lower respiratory disease (3 sources) Hypoxemia; Translations: [Hypoxemia] Onset: 06-03-2025 06-04-2025 Episodic Other lower respiratory disease (1 source) Shortness of breath; Translations: [Shortness of breath] Onset: 06-10-2025 Episodic Other lower respiratory disease (1 source) Hypoxemia; Translations: [Hypoxemia] Onset: 06-03-2025 Episodic Other nervous system disorders (16 sources) Metabolic encephalopathy; Translations: [Metabolic encephalopathy] Onset: 05-20-2025 05-20-2025 Chronic Other nervous system disorders (2 sources) Metabolic encephalopathy; Translations: [Metabolic encephalopathy] Onset: 05-20-2025 Chronic Other screening for suspected conditions (not mental disorders or infectious disease) (20 sources) Patient encounter status; Translations: [Encounter for screening for malignant neoplasm of colon] Onset: 09-10-2024 Episodic Oriana-; endo-; and myocarditis; cardiomyopathy (except that caused by tuberculosis or sexually transmitted disease) (2 sources) Cardiomyopathy; Translations: [Dilated cardiomyopathy] Chronic Oriana-; endo-; and myocarditis; cardiomyopathy (except that caused by tuberculosis or sexually transmitted disease) (2 sources) Pericardial effusion; Translations: [Pericardial effusion] 05-25-2025 Episodic Pulmonary heart disease (20 sources) Acute cor pulmonale; Translations: [Other pulmonary embolism with acute cor pulmonale] Onset: 02-01-2016 02-01-2016 Chronic Residual codes; unclassified (20 sources) Obstructive sleep apnea syndrome; Translations: [Obstructive sleep apnea (adult) (pediatric)] Onset: 02-13-2024 02-13-2024 Chronic Respiratory failure; insufficiency; arrest (adult) (20 sources) Acute on chronic hypoxemic and hypercapnic respiratory failure; Translations: [Acute and chronic respiratory failure with hypoxia] Onset: 11-02-2024 11-02-2024 Chronic Skin and subcutaneous tissue infections (1 source) Infection of toe ; Translations: [Local infection of the skin and subcutaneous tissue, unspecified] Episodic Spondylosis; intervertebral disc disorders; other back problems (20 sources) Cervical spondylosis; Translations: [Spondylosis without myelopathy or radiculopathy, cervical region] Onset: 03-02-2024 02-17-2024 Chronic Spondylosis; intervertebral disc disorders; other back problems (1 source) Chronic low back pain; Translations: [Chronic bilateral low back pain without sciatica] Episodic Substance-related disorders (20 sources) Smoker; Translations: [Nicotine dependence, unspecified, uncomplicated] Onset: 09-10-2015 Resolved: 01-16-2016 01-16-2016 Chronic Unclassified (2 sources) Patient encounter status; Translations: [Pre-op testing] Unclassified (7 sources) Autogenerated Problem Onset: 05-24-2025 05-24-2025 Unclassified (1 source) Elevation of levels of liver transaminase levels; Translations: [Elevation of levels of liver transaminase levels] Onset: 06-10-2025 Unclassified (1 source) Alcohol use, unspecified with withdrawal delirium (HCC); Translations: [Alcohol use, unspecified with withdrawal delirium (HCC)] Onset: 05-20-2025 Unclassified (1 source) Other pericardial effusion (noninflammatory); Translations: [Other pericardial effusion (noninflammatory)] Onset: 05-20-2025 Unclassified (1 source) Alcohol abuse with withdrawal, uncomplicated (HCC); Translations: [Alcohol abuse with withdrawal, uncomplicated (HCC)] Onset: 02-17-2024 Past or Other Problems Problem Classification Problem Date Documented Da te Episodic/Chronic Abdominal pain (1 source) Generalized abdominal pain; Translations: [Generalized abdominal pain] Episodic Acute myocardial infarction (20 sources) Mural thrombus of heart; Translations: [Intracardiac thrombosis, not elsewhere classified] Onset: 04-06-2020 Resolved: 11-02-2024 04-06-2020 Chronic Administrative/social admission (20 sources) Financial problem; Translations: [Problem related to housing and economic circumstances, unspecified] Onset: 08-20-2024 08-20-2024 Episodic Alcohol-related disorders (20 sources) Heavy drinker ; Translations: [Other specified health status] Onset: 09-10-2015 Resolved: 07-28-2022 09-10-2015 Episodic Fluid and electrolyte disorders (20 sources) Hyponatremia; Translations: [Hypo-osmolality and hyponatremia] Onset: 08-23-2021 Resolved: 09-16-2024 08-25-2021 Episodic Fracture of upper limb (20 sources) Closed fracture of sternal end of clavicle; Translations: [Closed fracture of shaft of clavicle] Onset: 12-31-2022 Episodic Hemorrhoids (20 sources) Internal hemorrhoids grade I; Translations: [First degree hemorrhoids] Onset: 10-27-2019 Resolved: 07-19-2022 10-27-2019 Episodic Mood disorders (20 sources) Mood disorders Onset: 07-25-2022 Resolved: 07-25-2022 07-25-2022 Nonspecific chest pain (20 sources) Chest pain; Translations: [Chest pain, unspecified] Onset: 08-23-2021 Resolved: 08-25-2021 08-25-2021 Episodic Other aftercare (20 sources) 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; 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] Onset: 11-21-2023 11-21-2023 Episodic Other and unspecified benign neoplasm (17 sources) Benign neoplasm of rectosigmoid junction; Translations: [Benign neoplasm of rectosigmoid junction] Resolved: 11-18-2019 10-27-2019 Episodic Other and unspecified benign neoplasm (20 sources) History of adenomatous polyp of colon; Translations: [Personal history of colonic polyps] Onset: 11-18-2019 11-18-2019 Episodic Other diseases of veins and lymphatics (20 sources) Stasis dermatitis; Translations: [Venous insufficiency (chronic) (peripheral)] Onset: 07-17-2017 07-17-2017 Episodic Other diseases of veins and lymphatics (20 sources) Disorder of vein of lower extremity; Translations: [Venous insufficiency (chronic) (peripheral)] Onset: 07-17-2017 06-15-2022 Episodic Other fractures (20 sources) Compression fracture of thoracic spine; Translations: [Wedge compression fracture of unspecified thoracic vertebra, subsequent encounter for fracture with routine healing] Onset: 10-07-2019 10-07-2019 Episodic Other gastrointestinal disorders (17 sources) Occult blood in stools; Translations: [Other fecal abnormalities] Resolved: 11-18-2019 10-27-2019 Episodic Other injuries and conditions due to external causes (1 source) Contusion of back; Translations: [Contusion of left side of back, initial encounter] Episodic Other injuries and conditions due to external causes (20 sources) H/O: fracture; Translations: [Personal history of (healed) traumatic fracture] Onset: 08-25-2021 07-19-2022 Episodic Other liver diseases (11 sources) Enzyme level - finding; Translations: [Transaminitis] Onset: 06-04-2025 Resolved: 06-10-2025 06-04-2025 Episodic Other lower respiratory disease (12 sources) Dyspnea; Translations: [Shortness of breath] Onset: 06-03-2025 Resolved: 06-10-2025 06-04-2025 Episodic Other nervous system disorders (20 sources) Numbness of upper limb; Translations: [Anesthesia of skin] Onset: 02-13-2024 02-13-2024 Episodic Other nutritional; endocrine; and metabolic disorders (20 sources) Obesity; Translations: [Obesity, unspecified] Onset: 09-10-2015 Resolved: 07-19-2022 09-10-2015 Chronic Phlebitis; thrombophlebitis and thromboembolism (20 sources) Deep venous thrombosis; Translations: [Acute embolism and thrombosis of unspecified deep veins of unspecified lower extremity] Onset: 02-02-2016 Resolved: 09-15-2019 02-02-2016 Episodic Pleurisy; pneumothorax; pulmonary collapse (20 sources) Pneumothorax; Translations: [Other pneumothorax] Onset: 08-25-2021 Resolved: 07-17-2022 08-25-2021 Episodic Pneumonia (except that caused by tuberculosis or sexually transmitted disease) (20 sources) Community acquired pneumonia; Translations: [Pneumonia, unspecified organism] Onset: 08-19-2024 Resolved: 08-20-2024 08-19-2024 Episodic Pulmonary heart disease (20 sources) Pulmonary embolism; Translations: [Other pulmonary embolism without acute cor pulmonale] Onset: 02-02-2016 Resolved: 09-15-2019 02-02-2016 Episodic Residual codes; unclassified (20 sources) Tobacco user; Translations: [Tobacco use] Onset: 07-17-2022 Episodic Residual codes; unclassified (20 sources) Patient noncompliance - general; Translations: [Medical non-compliance] Onset: 11-12-2023 11-12-2023 Episodic Residual codes; unclassified (20 sources) Drug compliance poor; Translations: [Poor compliance with medication] Onset: 02-13-2024 02-13-2024 Episodic Residual codes; unclassified (20 sources) Bilateral lower limb edema; Translations: [Localized edema] Onset: 09-16-2024 Resolved: 09-16-2024 09-16-2024 Episodic Respiratory failure; insufficiency; arrest (adult) (20 sources) Acute respiratory failure; Translations: [Acute respiratory failure with hypoxia] Onset: 02-17-2024 Resolved: 03-02-2024 02-17-2024 Episodic Screening and history of mental health and substance abuse codes (20 sources) Tobacco use and exposure - finding; Translations: [Personal history of nicotine dependence] Onset: 04-15-2024 04-15-2024 Episodic Septicemia (except in labor) (15 sources) Sepsis; Translations: [Sepsis, unspecified organism] Onset: 05-20-2025 Resolved: 06-10-2025 05-21-2025 Episodic Superficial injury; contusion (1 source) Contusion of left front wall of thorax, initial encounter; Translations: [Contusion of left chest wall, initial encounter] Episodic Unclassified (1 source) Elevation of levels of liver transaminase levels; Translations: [Elevation of levels of liver transaminase levels] Onset: 06-03-2025 Unclassified (1 source) Alcohol use, unspecified with withdrawal delirium (HCC); Translations: [Alcohol use, unspecified with withdrawal delirium (HCC)] Onset: 05-20-2025 Unclassified (1 source) Other pericardial effusion (noninflammatory); Translations: [Other pericardial effusion (noninflammatory)] Onset: 05-20-2025 Unclassified (1 source) Alcohol abuse with withdrawal, uncomplicated (HCC); Translations: [Alcohol abuse with withdrawal, uncomplicated (HCC)] Onset: 09-10-2024 Results Test Name Value Interpretation Reference Range Facility Stool Occult Blood iFOBon STOB Normal Reference Ran ge = Negative Immunochemical Fecal Occult Blood (iFOBT) method. Hemoccult Stl Ql IA Limitation: Menstrual bleeding, constipation bleeding, bleeding hemorrhoids, and urinary bleeding conditions may interfere with test. Occult Blood A Positive A OCCULT BLOOD POSITIVE Normal [facility] Comment on above: Performed By: #### M 100.7900 #### [facility] [address] [place], [address] CBC W/Diff, Automatedon 10- PATH REV Reviewed Normal [facility] Comment on above: Order Comment: 108-2 Result Comment: ADEU QATE LEUKOCYTES WITH ABSOLUTE LYMPHOPENIA, MILD LEFT SHIFT OF THE GRANULOCYTES, AND EOSINOPHILS. NORMOCYTIC NORMOCHROMIC ANEMIA WITH NORMAL RED CELL MORPHOLOGY. PLATELETS ADEQUATE. Yohana Pitts MD 06/28/2025 AMENDED REPORT 06/28/25 1626 PATH REV previously reported as: December yessenia Performed By: #### L [id number], L100.0100, L500.4050 #### [facility] [address] [place], [address] Comprehensive Metabolic Prof ilon 06-28-2025 Albumin [Mass/Vol] 3.1 g/dL Low 3.4-4.8 [facility] Comment on above: Order Comment: 108-2 Performed By: #### L [id number], L100.0100, [id number] #### [facility] [address] [place], [address] Albumin/Globulin [Mass ratio] 1.1 {ratio} Normal 0.9-2.4 [facility] Comment on above: Order Comment: 108-2 Performed By: #### L [id number], L100.0100, [id number] #### [facility] [address] [place], [address] ALK PHOS 99 U/L Normal 40-129 [facility] Comment on above: Order Comment: 108-2 Performed By: #### L [id number], L100.0100, [id number] #### [facility] [address] [place], [address] ALT [Catalytic activity/Vol] 18 U/L Normal <=46 [facility] Comment on above: Order Comment: 108-2 Performed By: #### L [id number], L100.0100, [id number] #### [facility] [address] [place], [address] AST [Catalytic activity/Vol] 21 U/L Normal <=37 [facility] Comment on above: Order Comment: 108-2 Performed By: #### L [id number], L100.0100, [id number] #### [facility] [address] [place], [address] Bilirubin [Mass/Vol] 0.33 mg/dL Normal 0.00-1.30 [facility] Comment on above: Order Comment: 108-2 Performed By: #### L [id number], L100.0100, [id number] #### [facility] [address] [place], [address] BUN/CRE 20.4 RATIO High 10-20 [facility] Comment on above: Order Comment: 108-2 Performed By: #### L [id number], L100.0100, [id number] #### [facility] [address] [place], [address] Calcium [Mass/Vol] 8.4 mg/dL Normal 7.6-11.0 [facility] Comment on above: Order Comment: 108-2 Performed By: #### L [id number], L100.0100, [id number] #### [facility] [address] [place], [address] Chloride [Moles/Vol] 96 mmol/L Low 98-108 [facility] Comment on above: Order Comment: 108-2 Performed By: #### L [id number], L100.0100, [id number] #### [facility] [address] [place], [address] CO2 [Moles/Vol] 26.5 mmol/L Normal 21.0-32.0 [facility] Comment on above: Order Comment: 108-2 Performed By: #### L [id number], L100.0100, [id number] #### [facility] [address] [place], [address] Creatinine [Mass/Vol] 0.88 mg/dL Normal 0.70-1.20 [facility] Comment on above: Order Comment: 108-2 Performed By: #### L [id number], L100.0100, [id number] #### [facility] [address] [place], [address] GAP 9 Normal 5-15 [facility] Comment on above: Order Comment: 108-2 Performed By: #### L [id number], L100.0100, [id number] #### [facility] [address] [place], [address] GFR/1.73 sq M.predicted among non-blacks MDRD (S/P/Bld) [Vol rate/Area] 93 mL/min/{1.73_m2} Normal >60 [facility] Comment on above: Order Comment: 108-2 Result Comment: mL/m in/1.73m2 CKD-EPI Creatinine Equation (2020) Performed By: #### L [id number], L100.0100, [id number] #### [facility] [address] [place], [address] Globulin (S) [Mass/Vol] 2.9 g/dL Normal 2.2-4.2 [facility] Comment on above: Order Comment: 108-2 Performed By: #### L [id number], L100.0100, [id number] #### [facility] [address] [place], [address] Glucose [Mass/Vol] 123 mg/dL High 70-99 [facility] Comment on above: Order Comment: 108-2 Performed By: #### L [id number], L100.0100, [id number] #### [facility] [address] [place], [address] Potassium [Moles/Vol] 3.7 mmol/L Normal 3.3-5.1 [facility] Comment on above: Order Comment: 108-2 Performed By: #### L [id number], L100.0100, [id number] #### [facility] [address] [place], [address] Sodium [Moles/Vol] 131 mmol/L Low 133-145 [facility] Comment on above: Order Comment: 108-2 Performed By: #### L [id number], L100.0100, [id number] #### [facility] [address] [place], [address] T PROT 6.0 g/dL Normal 5.9-8.4 [facility] Comment on above: Order Comment: 108-2 Performed By: #### L [id number], L100.0100, [id number] #### [facility] [address] [place], [address] Urea nitrogen [Mass/Vol] 18 mg/dL Normal 4-19 [facility] Comment on above: Order Comment: 108-2 Performed By: #### L [id number], L100.0100, [id number] #### [facility] [address] [place], [address] Vancomycin, Trough Levelon 1 - VANCO, TROUGH 19.6 ug/mL High 5.0-15.0 [facility] Comment on above: Order Comment: 30 Result Comment: Migue mmended goal trough ranges [...] (Ventilator/Healtcare Associated) -Sepsis PLEASE CONTACT PHARMACY SERVICES (#[id number]) FOR INTERPRETATION OF RESULTS. Performed By: #### L [id number], L100.0100, [id number] #### [facility] [address] [place], [address] Basic Metabolic Profile (BMP )on 06-23-2025 BUN/CRE 23.7 RATIO High 06-21 [facility] Comment on above: Order Comment: 108-2 Performed By: #### L [id number], L100.0100, [id number] #### [facility] [address] [place], [address] Calcium [Mass/Vol] 8.0 mg/dL Normal 7.6-11.0 [facility] Comment on above: Order Comment: 108-2 Performed By: #### L [id number], L100.0100, [id number] #### [facility] [address] [place], [address] Chloride [Moles/Vol] 94 mmol/L Low 98-108 [facility] Comment on above: Order Comment: 108-2 Performed By: #### L [id number], L100.0100, [id number] #### [facility] [address] [place], [address] CO2 [Moles/Vol] 27.0 mmol/L Normal 21.0-32.0 [facility] Comment on above: Order Comment: 108-2 Performed By: #### L [id number], L100.0100, [id number] #### [facility] [address] [place], [address] Creatinine [Mass/Vol] 0.98 mg/dL Normal 0.70-1.20 [facility] Comment on above: Order Comment: 108-2 Performed By: #### L [id number], L100.0100, [id number] #### [facility] [address] [place], [address] GAP 9 Normal 5-15 [facility] Comment on above: Order Comment: 108-2 Performed By: #### L [id number], L100.0100, [id number] #### [facility] [address] [place], [address] GFR/1.73 sq M.predicted among non-blacks MDRD (S/P/Bld) [Vol rate/Area] 83 mL/min/{1.73_m2} Normal >60 [facility] Comment on above: Order Comment: 108-2 Result Comment: mL/m in/1.73m2 CKD-EPI Creatinine Equation (2020) Performed By: #### L [id number], L100.0100, [id number] #### [facility] [address] [place], [address] Glucose [Mass/Vol] 104 mg/dL High 70-99 [facility] Comment on above: Order Comment: 108-2 Performed By: #### L [id number], L100.0100, [id number] #### [facility] [address] [place], [address] Potassium [Moles/Vol] 4.1 mmol/L Normal 3.3-5.1 [facility] Comment on above: Order Comment: 108-2 Performed By: #### L [id number], L100.0100, [id number] #### [facility] [address] [place], [address] Sodium [Moles/Vol] 131 mmol/L Low 133-145 [facility] Comment on above: Order Comment: 108-2 Performed By: #### L [id number], L100.0100, [id number] #### [facility] [address] [place], [address] Urea nitrogen [Mass/Vol] 23 mg/dL High 4-19 [facility] Comment on above: Order Comment: 108-2 Performed By: #### L [id number], L100.0100, [id number] #### [facility] [address] [place], [address] CBC-Complete Blood Cnt No Di ffon 06-23-2025 Erythrocyte distribution width (RBC) [Ratio] 14.4 % Normal 11.6-14.6 [facility] Comment on above: Order Comment: 108-2 Performed By: #### L [id number], L100.0100, [id number] #### [facility] [address] [place], [address] Hematocrit (Bld) [Volume fraction] 31.4 % Low 40-54 [facility] Comment on above: Order Comment: 108-2 Performed By: #### L [id number], L100.0100, [id number] #### [facility] [address] [place], [address] Hemoglobin (Bld) [Mass/Vol] 10.6 g/dL Low 13.0-16.5 [facility] Comment on above: Order Comment: 108-2 Performed By: #### L [id number], L100.0100, [id number] #### [facility] [address] [place], [address] MCH (RBC) [Entitic mass] 29.4 pg Normal 27.0-32.0 [facility] Comment on above: Order Comment: 108-2 Performed By: #### L [id number], L100.0100, [id number] #### [facility] [address] [place], [address] MCHC (RBC) [Mass/Vol] 33.8 g/dL Normal 32-36 [facility] Comment on above: Order Comment: 108-2 Performed By: #### L [id number], L100.0100, [id number] #### [facility] [address] [place], [address] MCV (RBC) [Entitic vol] 87.2 fL Normal 80-94 [facility] Comment on above: Order Comment: 108-2 Performed By: #### L [id number], L100.0100, [id number] #### [facility] [address] [place], [address] Platelet mean volume (Bld) [Entitic vol] 9.5 fL Normal 6.2-12.0 [facility] Comment on above: Order Comment: 108-2 Performed By: #### L [id number], L100.0100, [id number] #### [facility] [address] [place], [address] Platelets (Bld) [#/Vol] 210 10*3/uL Normal 150-450 [facility] Comment on above: Order Comment: 108-2 Performed By: #### L [id number], L100.0100, [id number] #### [facility] [address] [place], [address] RBC (Bld) [#/Vol] 3.60 10*6/uL Low 4.6-6.2 [facility] Comment on above: Order Comment: 108-2 Performed By: #### L [id number], L100.0100, L500.4050 #### [facility] [address] [place], [address] RDW SD 45.5 fl High 35.1-43.9 [facility] Comment on above: Order Comment: 108-2 Performed By: #### L [id number], L100.0100, [id number] #### [facility] [address] [place], [address] WBC (Bld) [#/Vol] 8.0 10*3/uL Normal 4.4-11.0 [facility] Comment on above: Order Comment: 108-2 Performed By: #### L [id number], L100.0100, L500.4050 #### [facility] [address] [place], [address] CBC W/Diff, Automatedon 10-2 PATH REV Reviewed Normal [facility] Comment on above: Order Comment: 108.2 Result Comment: SEE REPORT IN PATIENT'S EMR AMENDED REPORT 06/22/25 1530 PATH REV previously reported as: December Performed By: #### L 100.0100, L500.4050, L501.8820 #### [facility] [address] [place], [address] CBC W/Diff, Automatedon 10-2 Absolute Lymph 0.97 X10 3/uL Normal 0.83-4.51 [facility] Comment on above: Order Comment: 108-2 Performed By: #### L [id number], L100.0100, [id number] #### [facility] [address] [place], [address] Absolute Neut 4.8 X10 3/uL Normal 2.0-7.7 [facility] Comment on above: Order Comment: 108-2 Performed By: #### L [id number], L100.0100, [id number] #### [facility] [address] [place], [address] Basophils/100 WBC (Bld) 1.9 % High 0-1 [facility] Comment on above: Order Comment: 108-2 Performed By: #### L [id number], L100.0100, [id number] #### [facility] [address] [place], [address] Eosinophils/100 WBC (Bld) 6.8 % High 0-5 [facility] Comment on above: Order Comment: 108-2 Performed By: #### L [id number], L100.0100, [id number] #### [facility] [address] [place], [address] Erythrocyte distribution width (RBC) [Ratio] 14.5 % Normal 11.6-14.6 [facility] Comment on above: Order Comment: 108-2 Performed By: #### L [id number], L100.0100, L500.4050 #### [facility] [address] [place], [address] Hematocrit (Bld) [Volume fraction] 32.0 % Low 40-54 [facility] Comment on above: Order Comment: 108-2 Performed By: #### L [id number], L100.0100, L500.4050 #### [facility] [address] [place], [address] Hemoglobin (Bld) [Mass/Vol] 10.6 g/dL Low 13.0-16.5 [facility] Comment on above: Order Comment: 108-2 Performed By: #### L [id number], L100.0100, L500.4050 #### [facility] [address] [place], [address] IG% 4.400 High 0.0-0.9 [facility] Comment on above: Order Comment: 108-2 Result Comment: IG% - Immature Granulocytes (promyelocytes, myelocytes and metamyelocytes) > 1% indicates that a LEFT SHIFT is Present. Performed By: #### L [id number], L100.0100, L500.4050 #### [facility] [address] [place], [address] Lymphocytes/100 WBC (Bld) 12.3 % Low 19-41 [facility] Comment on above: Order Comment: 108-2 Performed By: #### L [id number], L100.0100, [id number] #### [facility] [address] [place], [address] MCH (RBC) [Entitic mass] 29.5 pg Normal 27.0-32.0 [facility] Comment on above: Order Comment: 108-2 Performed By: #### L [id number], L100.0100, [id number] #### [facility] [address] [place], [address] MCHC (RBC) [Mass/Vol] 33.1 g/dL Normal 32-36 [facility] Comment on above: Order Comment: 108-2 Performed By: #### L [id number], L100.0100, L500.4050 #### [facility] [address] [place], [address] MCV (RBC) [Entitic vol] 89.1 fL Normal 80-94 [facility] Comment on above: Order Comment: 108-2 Performed By: #### L [id number], L100.0100, L500.4050 #### [facility] [address] [place], [address] Monocytes/100 WBC (Bld) 13.2 % High 0-10 [facility] Comment on above: Order Comment: 108-2 Performed By: #### L [id number], L100.0100, [id number] #### [facility] [address] [place], [address] Neutrophils/100 WBC (Bld) 61.4 % Normal 47-70 [facility] Comment on above: Order Comment: 108-2 Performed By: #### L [id number], L100.0100, L500.4050 #### [facility] [address] [place], [address] Nucleated RBC (Bld) [#/Vol] 0 10*3/uL Normal 0-5 [facility] Comment on above: Order Comment: 108-2 Performed By: #### L 501.8820, L100.0100, L500.4050 #### [facility] [address] [place], [address] Platelet mean volume (Bld) [Entitic vol] 9.4 fL Normal 6.2-12.0 [facility] Comment on above: Order Comment: 108-2 Performed By: #### L 501.8820, L100.0100, L500.4050 #### [facility] [address] [place], [address] Platelets (Bld) [#/Vol] 216 10*3/uL Normal 150-450 [facility] Comment on above: Order Comment: 108-2 Performed By: #### L 501.8820, L100.0100, L500.4050 #### [facility] [address] [place], [address] RBC (Bld) [#/Vol] 3.59 10*6/uL Low 4.6-6.2 [facility] Comment on above: Order Comment: 108-2 Performed By: #### L 501.8820, L100.0100, L500.4050 #### [facility] [address] [place], [address] RDW SD 47.0 fl High 35.1-43.9 [facility] Comment on above: Order Comment: 108-2 Performed By: #### L 501.8820, L100.0100, L500.4050 #### [facility] [address] [place], [address] WBC (Bld) [#/Vol] 7.9 10*3/uL Normal 4.4-11.0 [facility] Comment on above: Order Comment: 108-2 Performed By: #### L 501.8820, L100.0100, L500.4050 #### [facility] [address] [place], [address] Comprehensive Metabolic Prof ilon 06-21-2025 Albumin [Mass/Vol] 3.3 g/dL Low 3.4-4.8 [facility] Comment on above: Order Comment: 108-2 Performed By: #### L 501.8820, L100.0100, L500.4050 #### [facility] [address] [place], [address] Albumin/Globulin [Mass ratio] 1.3 {ratio} Normal 0.9-2.4 [facility] Comment on above: Order Comment: 108-2 Performed By: #### L 501.8820, L100.0100, L500.4050 #### [facility] [address] [place], [address] ALK PHOS 101 U/L Normal 40-129 [facility] Comment on above: Order Comment: 108-2 Performed By: #### L 501.8820, L100.0100, L500.4050 #### [facility] [address] [place], [address] ALT [Catalytic activity/Vol] 21 U/L Normal <=46 [facility] Comment on above: Order Comment: 108-2 Performed By: #### L 501.8820, L100.0100, L500.4050 #### [facility] [address] [place], [address] AST [Catalytic activity/Vol] 20 U/L Normal <=37 [facility] Comment on above: Order Comment: 108-2 Performed By: #### L 501.8820, L100.0100, L500.4050 #### [facility] [address] [place], [address] Bilirubin [Mass/Vol] 0.31 mg/dL Normal 0.00-1.30 [facility] Comment on above: Order Comment: 108-2 Performed By: #### L 501.8820, L100.0100, L500.4050 #### [facility] [address] [place], [address] BUN/CRE 31.3 RATIO High 10-20 [facility] Comment on above: Order Comment: 108-2 Performed By: #### L 501.8820, L100.0100, L500.4050 #### [facility] [address] [place], [address] Calcium [Mass/Vol] 8.5 mg/dL Normal 7.6-11.0 [facility] Comment on above: Order Comment: 108-2 Performed By: #### L 501.8820, L100.0100, L500.4050 #### [facility] [address] [place], [address] Chloride [Moles/Vol] 96 mmol/L Low 98-108 [facility] Comment on above: Order Comment: 108-2 Performed By: #### L 501.8820, L100.0100, L500.4050 #### [facility] [address] [place], [address] CO2 [Moles/Vol] 27.6 mmol/L Normal 21.0-32.0 [facility] Comment on above: Order Comment: 108-2 Performed By: #### L 501.8820, L100.0100, L500.4050 #### [facility] [address] [place], [address] Creatinine [Mass/Vol] 0.88 mg/dL Normal 0.70-1.20 [facility] Comment on above: Order Comment: 108-2 Performed By: #### L 501.8820, L100.0100, L500.4050 #### [facility] [address] [place], [address] GAP 9 Normal 5-15 [facility] Comment on above: Order Comment: 108-2 Performed By: #### L 501.8820, L100.0100, L500.4050 #### [facility] [address] [place], [address] GFR/1.73 sq M.predicted among non-blacks MDRD (S/P/Bld) [Vol rate/Area] 93 mL/min/{1.73_m2} Normal >60 [facility] Comment on above: Order Comment: 108-2 Result Comment: mL/m in/1.73m2 CKD-EPI Creatinine Equation (2020) Performed By: #### L 501.8820, L100.0100, L500.4050 #### [facility] [address] [place], [address] Globulin (S) [Mass/Vol] 2.6 g/dL Normal 2.2-4.2 [facility] Comment on above: Order Comment: 108-2 Performed By: #### L 501.8820, L100.0100, L500.4050 #### [facility] [address] [place], [address] Glucose [Mass/Vol] 95 mg/dL Normal 70-99 [facility] Comment on above: Order Comment: 108-2 Performed By: #### L 501.8820, L100.0100, L500.4050 #### [facility] [address] [place], [address] Potassium [Moles/Vol] 4.2 mmol/L Normal 3.3-5.1 [facility] Comment on above: Order Comment: 108-2 Performed By: #### L 501.8820, L100.0100, L500.4050 #### [facility] [address] [place], [address] Sodium [Moles/Vol] 133 mmol/L Normal 133-145 [facility] Comment on above: Order Comment: 108-2 Performed By: #### L 501.8820, L100.0100, L500.4050 #### [facility] [address] [place], [address] T PROT 5.8 g/dL Low 5.9-8.4 [facility] Comment on above: Order Comment: 108-2 Performed By: #### L 501.8820, L100.0100, L500.4050 #### [facility] [address] [place], [address] Urea nitrogen [Mass/Vol] 28 mg/dL High 4-19 [facility] Comment on above: Order Comment: 108-2 Performed By: #### L 501.8820, L100.0100, L500.4050 #### [facility] [address] [place], [address] Vancomycin, Trough Levelon VANCO, TROUGH 20.4 ug/mL High 5.0-15.0 [facility] Comment on above: Order Comment: 108-2 Result Comment: Migue mmended goal trough ranges [...] (Ventilator/Healtcare Associated) -Sepsis PLEASE CONTACT PHARMACY SERVICES (#[id number]) FOR INTERPRETATION OF RESULTS. Performed By: #### L 501.8820, L100.0100, L500.4050 #### [facility] [address] [place], [place], [address] Vancomycin, Trough Levelon 1 VANCO, TROUGH 10.2 ug/mL Normal 5.0-15.0 [facility] Comment on above: Order Comment: 108-2 Result Comment: Migue mmended goal trough ranges [...] (Ventilator/Healtcare Associated) -Sepsis PLEASE CONTACT PHARMACY SERVICES (#[id number]) FOR INTERPRETATION OF RESULTS. Performed By: #### L 501.8820, L100.0100, L500.4050 #### [facility] [address] [place], [place], [address] 36on 06-15-2025 36 COPD Navigator Note Called patient on home phone. No answer. Left Voicemail. Normal [facility] Comprehensive Metabolic Prof ilon 06-14-2025 Albumin [Mass/Vol] 3.3 g/dL Low 3.4-4.8 [facility] Comment on above: Order Comment: 108-2 Performed By: #### L 501.8820, L100.0100, L500.4050 #### [facility] [address] [place], [place], [address] Albumin/Globulin [Mass ratio] 1.1 {ratio} Normal 0.9-2.4 [facility] Comment on above: Order Comment: 108-2 Performed By: #### L 501.8820, L100.0100, L500.4050 #### [facility] [address] [place], [address] ALK PHOS 96 U/L Normal 40-129 [facility] Comment on above: Order Comment: 108-2 Performed By: #### L 501.8820, L100.0100, L500.4050 #### [facility] [address] [place], [address] ALT [Catalytic activity/Vol] 35 U/L Normal <=46 [facility] Comment on above: Order Comment: 108-2 Performed By: #### L 501.8820, L100.0100, L500.4050 #### [facility] [address] [place], [address] AST [Catalytic activity/Vol] 35 U/L Normal <=37 [facility] Comment on above: Order Comment: 108-2 Performed By: #### L 501.8820, L100.0100, L500.4050 #### [facility] [address] [place], [address] Bilirubin [Mass/Vol] 0.26 mg/dL Normal 0.00-1.30 [facility] Comment on above: Order Comment: 108-2 Performed By: #### L 501.8820, L100.0100, L500.4050 #### [facility] [address] [place], [address] BUN/CRE 27.9 RATIO High 10-20 [facility] Comment on above: Order Comment: 108-2 Performed By: #### L 501.8820, L100.0100, L500.4050 #### [facility] [address] [place], [address] Calcium [Mass/Vol] 8.7 mg/dL Normal 7.6-11.0 [facility] Comment on above: Order Comment: 108-2 Performed By: #### L 501.8820, L100.0100, L500.4050 #### [facility] [address] [place], [address] Chloride [Moles/Vol] 94 mmol/L Low 98-108 [facility] Comment on above: Order Comment: 108-2 Performed By: #### L 501.8820, L100.0100, L500.4050 #### [facility] [address] [place], [address] CO2 [Moles/Vol] 27.9 mmol/L Normal 21.0-32.0 [facility] Comment on above: Order Comment: 108-2 Performed By: #### L 501.8820, L100.0100, L500.4050 #### [facility] [address] [place], [address] Creatinine [Mass/Vol] 1.01 mg/dL Normal 0.70-1.20 [facility] Comment on above: Order Comment: 108-2 Performed By: #### L 501.8820, L100.0100, L500.4050 #### [facility] [address] [place], [address] GAP 11 Normal 5-15 [facility] Comment on above: Order Comment: 108-2 Performed By: #### L 501.8820, L100.0100, L500.4050 #### [facility] [address] [place], [address] GFR/1.73 sq M.predicted among non-blacks MDRD (S/P/Bld) [Vol rate/Area] 81 mL/min/{1.73_m2} Normal >60 [facility] Comment on above: Order Comment: 108-2 Result Comment: mL/m in/1.73m2 CKD-EPI Creatinine Equation (2020) Performed By: #### L 501.8820, L100.0100, L500.4050 #### [facility] [address] [place], [address] Globulin (S) [Mass/Vol] 2.9 g/dL Normal 2.2-4.2 [facility] Comment on above: Order Comment: 108-2 Performed By: #### L 501.8820, L100.0100, L500.4050 #### [facility] [address] [place], [address] Glucose [Mass/Vol] 124 mg/dL High 70-99 [facility] Comment on above: Order Comment: 108-2 Performed By: #### L 501.8820, L100.0100, L500.4050 #### [facility] [address] [place], [address] Potassium [Moles/Vol] 3.1 mmol/L Low 3.3-5.1 [facility] Comment on above: Order Comment: 108-2 Performed By: #### L 501.8820, L100.0100, L500.4050 #### [facility] [address] [place], [address] Sodium [Moles/Vol] 133 mmol/L Normal 133-145 [facility] Comment on above: Order Comment: 108-2 Performed By: #### L 501.8820, L100.0100, L500.4050 #### [facility] [address] [place], [address] T PROT 6.2 g/dL Normal 5.9-8.4 [facility] Comment on above: Order Comment: 108-2 Performed By: #### L 501.8820, L100.0100, L500.4050 #### [facility] [address] [place], [address] Urea nitrogen [Mass/Vol] 28 mg/dL High 4-19 [facility] Comment on above: Order Comment: 108-2 Performed By: #### L 501.8820, L100.0100, L500.4050 #### [facility] [address] [place], [address] Vancomycin, Trough Levelon 1 VANCO, TROUGH 12.9 ug/mL Normal 5.0-15.0 [facility] Comment on above: Order Comment: 108-2 Result Comment: Migue mmended goal trough ranges [...] (Ventilator/Healtcare Associated) -Sepsis PLEASE CONTACT PHARMACY SERVICES (#[id number]) FOR INTERPRETATION OF RESULTS. Performed By: #### L 501.8820, L100.0100, L500.4050 #### [facility] [address] [place], [address] [id number] 06-11-2025 [id number] Patient Choice Patient Name: KRYSTINA MARKHAM Date of : 1955 [facility] 36on 06-11-2025 36 Received updated OPA T from Dr. Arndt for pt. Called [facility] and spoke to nurse Matias verifying IV med, dose, frequency EOT, weekly labs, BCX2 on 07/06, and follow up appt on 07/[address] Ngo. She was able to read back orders. [facility] Comprehensive Metabolic Prof ilon 06-11-2025 Albumin [Mass/Vol] 3.2 g/dL Low 3.4-4.8 [facility] Comment on above: Order Comment: 108-2 Performed By: #### L 500.4050 #### [facility] [address] [place], [address] Albumin/Globulin [Mass ratio] 1.2 {ratio} Normal 0.9-2.4 [facility] Comment on above: Order Comment: 108-2 Performed By: #### L 500.4050 #### [facility] [address] [place], [address] ALK PHOS 94 U/L Normal 40-129 [facility] Comment on above: Order Comment: 108-2 Performed By: #### L 500.4050 #### [facility] [address] [place], [address] ALT [Catalytic activity/Vol] 26 U/L Normal <=46 [facility] Comment on above: Order Comment: 108-2 Performed By: #### L 500.4050 #### [facility] [address] [place], [address] AST [Catalytic activity/Vol] 15 U/L Normal <=37 [facility] Comment on above: Order Comment: 108-2 Performed By: #### L 500.4050 #### [facility] [address] [place], [address] Bilirubin [Mass/Vol] 0.29 mg/dL Normal 0.00-1.30 [facility] Comment on above: Order Comment: 108-2 Performed By: #### L 500.4050 #### [facility] [address] [place], [address] BUN/CRE 27.9 RATIO High 10-20 [facility] Comment on above: Order Comment: 108-2 Performed By: #### L 500.4050 #### [facility] [address] [place], [address] Calcium [Mass/Vol] 8.6 mg/dL Normal 7.6-11.0 [facility] Comment on above: Order Comment: 108-2 Performed By: #### L 500.4050 #### [facility] [address] [place], [address] Chloride [Moles/Vol] 95 mmol/L Low 98-108 [facility] Comment on above: Order Comment: 108-2 Performed By: #### L 500.4050 #### [facility] [address] [place], [address] CO2 [Moles/Vol] 26.1 mmol/L Normal 21.0-32.0 [facility] Comment on above: Order Comment: 108-2 Performed By: #### L 500.4050 #### [facility] [address] [place], [address] Creatinine [Mass/Vol] 0.87 mg/dL Normal 0.70-1.20 [facility] Comment on above: Order Comment: 108-2 Performed By: #### L 500.4050 #### [facility] [address] [place], [address] GAP 10 Normal 5-15 [facility] Comment on above: Order Comment: 108-2 Performed By: #### L 500.4050 #### [facility] [address] [place], [address] GFR/1.73 sq M.predicted among non-blacks MDRD (S/P/Bld) [Vol rate/Area] 93 mL/min/{1.73_m2} Normal >60 [facility] Comment on above: Order Comment: 108-2 Result Comment: mL/m in/1.73m2 CKD-EPI Creatinine Equation (2020) Performed By: #### L 500.4050 #### [facility] [address] [place], [address] Globulin (S) [Mass/Vol] 2.7 g/dL Normal 2.2-4.2 [facility] Comment on above: Order Comment: 108-2 Performed By: #### L 500.4050 #### [facility] [address] [place], [address] Glucose [Mass/Vol] 126 mg/dL High 70-99 [facility] Comment on above: Order Comment: 108-2 Performed By: #### L 500.4050 #### [facility] [address] [place], [address] Potassium [Moles/Vol] 3.6 mmol/L Normal 3.3-5.1 [facility] Comment on above: Order Comment: 108-2 Performed By: #### L 500.4050 #### [facility] [address] [place], [address] Sodium [Moles/Vol] 131 mmol/L Low 133-145 [facility] Comment on above: Order Comment: 108-2 Performed By: #### L 500.4050 #### [facility] [address] [place], [address] T PROT 6.0 g/dL Normal 5.9-8.4 [facility] Comment on above: Order Comment: 108-2 Performed By: #### L 500.4050 #### [facility] [address] [place], [address] Urea nitrogen [Mass/Vol] 24 mg/dL High 4-19 [facility] Comment on above: Order Comment: 108-2 Performed By: #### L 500.4050 #### [facility] [address] [place], [address] [id number] 06-10-2025 [id number] Shelter/SNF - [place] [phone] [id number] Patient/Family Choice Normal [facility] [phone] Chilo Orellana did c laim the wheelchair transport for 6:30 this evening. Dc planning team notified. Normal [facility] [phone] Normal [facility] [phone] Discharge med list transmitted to [facility] via [facility] per TCC request. Normal [facility] [phone] SENT OPAT TO [facility] via [facility] per TCC request. Await review and response regarding ability to accept. TCC notified. Normal [facility] CBC W Auto Differential pane l (Bld)on 06-10-2025 Erythrocyte distribution width (RBC) [Ratio] 13.3 % 11.5 - 15.0 % [facility] Hematocrit (Bld) [Volume fraction] 33.7 % Low 40.0 - 52.0 % [facility] Hemoglobin (Bld) [Mass/Vol] 11.5 g/dL Low 13.0 - 18.0 g/dL [facility] MCH (RBC) [Entitic mass] 29.2 pg 26.0 - 34.0 pg [facility] MCHC (RBC) [Mass/Vol] 34.1 % 30.5 - 36.0 % [facility] MCV (RBC) [Entitic vol] 85.5 fL 77.0 - 99.0 fL [facility] Platelet mean volume (Bld) [Entitic vol] 9.4 fL 9.0 - 12.7 fL [facility] Platelets (Bld) [#/Vol] 148 10*3/uL 140 - 440 10*3/uL [facility] RBC (Bld) [#/Vol] 3.94 10*6/uL Low 4.40 - 5.9 0 10*6/uL [facility] WBC (Bld) [#/Vol] 8.3 10*3/uL 3.6 - 10.7 10*3/uL [facility] CBC WITH AUTO DIFFERENTIALon 06-10-2025 Erythrocyte distribution width (RBC) [Ratio] 13.3 % Normal 11.5-15.0 [facility] Comment on above: Performed By: #### L [id number], [id number] ####Fire Operations Forester: MELI CARRILLO ([id number])[facility]ENTEREstefania VILLSAENORREUNION RE[facility] (SBHLAB)[address] Hematocrit (Bld) [Volume fraction] 33.7 % Low 40.0-52.0 [facility] Comment on above: Performed By: #### L [id number], [id number] ####Fire Operations Forester: MELI CARRILLO ([id number])[facility]EREstefania VILLASENORREUN[facility] RE[facility]IL[facility]OS[facility] (SBHLAB)[address] Hemoglobin (Bld) [Mass/Vol] 11.5 g/dL Low 13.0-18.0 [facility] Comment on above: Performed By: #### L [id number], [id number] ####Fire Operations Forester: MELI CARRILLO ([id number])[facility] CENTEREstefania [place] (SBHLAB)[address] [place] [address] MCH (RBC) [Entitic mass] 29.2 pg Normal 26.0-34.0 [facility] Comment on above: Performed By: #### L [id number], [id number] ####Fire Operations Forester: MELI CARRILLO ([id number])[facility]ENTERE[facility]ef[facility] [place] (HLAB)[address] MCHC 34.1 % Normal 30.5-36.0 [facility] Comment on above: Performed By: #### L [id number], [id number] ####Fire Operations Forester: MELI CARRILLO ([id number])[facility] (SBHLAB)[address] MCV (RBC) [Entitic vol] 85.5 fL Normal 77.0-99.0 [facility] Comment on above: Performed By: #### L [id number], [id number] ####Fire Operations Forester: MELI CARRILLO ([id number])[facility] (SBHLAB)[address] Platelet mean volume (Bld) [Entitic vol] 9.4 fL Normal 9.0-12.7 [facility] Comment on above: Performed By: #### L [id number], [id number] ####Fire Operations Forester: MELI CARRILLO ([id number])[facility] (SBHLAB)[address] Platelets (Bld) [#/Vol] 148 10*3/uL Normal 140-440 [facility] Comment on above: Performed By: #### L [id number], [id number] ####Fire Operations Forester: MELI CARRILLO ([id number])[facility]ENTERA [place] (SBHLAB)[address] RBC (Bld) [#/Vol] 3.94 10*6/uL Low 4.40-5.90 [facility] Comment on above: Performed By: #### L [id number], [id number] ####Fire Operations Forester: MELI CARRILLO ([id number])[facility]ENTEREstefania [place]ILL[place]ENORCHI[place] (SBHLAB)[address] WBC (Bld) [#/Vol] 8.3 10*3/uL Normal 3.6-10.7 [facility] Comment on above: Performed By: #### L [id number], [id number] ####Fire Operations Forester: MELI CARRILLO ([id number])[facility]ENTEREstefania VILLASENORTSAILE HEALTH CENTERN (SBHLAB)[address] COMPREHENSIVE METABOLIC PANE Maciel 06-10-2025 Albumin [Mass/Vol] 2.6 g/dL Low 3.4-4.8 [facility] Comment on above: Performed By: #### L [id number], LAB17 ####Fire Operations Forester: MELI CARRILLO ([id number])[facility]EREstefania VILLASENORTSAILE HEALTH CENTERN (SBHLAB)[address] ALP [Catalytic activity/Vol] 78 U/L Normal 40-150 [facility] Comment on above: Performed By: #### L AB103, LAB17 ####Fire Operations Forester: MELI CARRILLO ([id number])[facility]ENTERA [place] (SBHLAB)[address] [place] [address] [place] ALT [Catalytic activity/Vol] 33 U/L Normal <40 [facility] Comment on above: Performed By: #### L AB103, LAB17 ####Fire Operations Forester: MELI CARRILLO ([id number])[facility] [place] (SBHLAB)[address] Anion gap [Moles/Vol] 9 mmol/L Normal 3-13 [facility] Comment on above: Performed By: #### L AB103, LAB17 ####Fire Operations Forester: MELI CARRILLO ([id number])[facility] [place] (SBHLAB)[address] AST [Catalytic activity/Vol] 16 U/L Normal <34 [facility] Comment on above: Performed By: #### L AB103, LAB17 ####Fire Operations Forester: MELI CARRILLO ([id number])[facility] [place] (SBHLAB)[address] Bilirubin [Mass/Vol] 0.4 mg/dL Normal <1.2 [facility] Comment on above: Performed By: #### L AB103, LAB17 ####Fire Operations Forester: MELI CARRILLO ([id number])[facility] [place] (SBHLAB)[address] Calcium [Mass/Vol] 8.5 mg/dL Low 8.8-10.0 [facility] Comment on above: Performed By: #### L AB103, LAB17 ####Fire Operations Forester: MELI CARRILLO ([id number])[facility] [place] (SBHLAB)[address] [place] [address] [place] Chloride [Moles/Vol] 98 mmol/L Normal 98-107 [facility] Comment on above: Performed By: #### L AB103, LAB17 ####Fire Operations Forester: MELI CARRILLO ([id number])[facility] [place] (SBHLAB)[address] [place] [address] [place] CO2 [Moles/Vol] 27 mmol/L Normal 23-31 [facility] Comment on above: Performed By: #### L 103, LAB17 ####Fire Operations Forester: MELI CARRILLO ([id number])[facility] (SBHLAB)[address] Creatinine [Mass/Vol] 0.84 mg/dL Normal 0.72-1.25 [facility] Comment on above: Performed By: #### L AB103, LAB17 ####Fire Operations Forester: MELI CARRILLO ([id number])[facility] ([facility])[address] GLOMERULAR FILTRATION RATE ML/MIN/1.73 SQ M.PREDICTED >90.0 Normal >60.0 [facility] Region Comment on above: Result Comment: Calc ulation based on the Chronic Kidney Disease Epidemiology Collaboration (CKD-EPI) equation refit without adjustment for race Performed By: #### L WANG, [id number] ####Fire Operations Forester: MELI CARRILLO ([phone])[facility] (HLAB)[address] Glucose [Mass/Vol] 97 mg/dL Normal 82-115 [facility] Comment on above: Performed By: #### L 103, [id number] ####Fire Operations Forester: MELI CARRILLO ([phone])[facility] ([facility])[address] Potassium [Moles/Vol] 3.5 mmol/L Normal 3.5-5.1 [facility] Comment on above: Result Comment: [facility] potassium values may be up to 0.5 mmol/L lower than serum values. Performed By: #### L [id number], LAB17 ####Fire Operations Forester: MELI CARRILLO ([phone])[facility] ([facility] Protein [Mass/Vol] 5.5 g/dL Low 6.4-8.3 [facility] Comment on above: Performed By: #### L [id number], LAB17 ####Fire Operations Forester: MELI TIDWELLCER ([phone])[facility] (SBHLAB)[address] Sodium [Moles/Vol] 134 mmol/L Low 136-145 [facility] Comment on above: Performed By: #### L [id number], LAB17 ####Fire Operations Forester: MELI GERARDO ([phone])[facility] (SBHLAB)[address] Urea nitrogen [Mass/Vol] 26 mg/dL High 9-23 [facility] Comment on above: Performed By: #### L [id number], LAB17 ####Fire Operations Forester: MELIIVELISSE CARRILLO ([phone])[facility] (SBHLAB)[address] Comprehensive metabolic 1998 panelon 06-10-2025 Albumin [Mass/Vol] 2.6 g/dL Low 3.4 - 4.8 g/dL [facility] ALP [Catalytic activity/Vol] 78 U/L 40 - 150 U/L [facility] ALT [Catalytic activity/Vol] [facility] Anion gap [Moles/Vol] 9 mmol/L 3 - 13 mmol/L [facility] AST [Catalytic activity/Vol] 16 U[facility]L [facility] Bilirubin [Mass/Vol] 0.4 mg/dL NINF - 1.2 mg/dL [facility] Calcium [Mass/Vol] 8.5 mg/dL Low 8.8 - 10. 0 mg/dL [facility] Chloride [Moles/Vol] 98 mmol/L 98 - 10 7 mmol/L [facility] CO2 [Moles/Vol] 27 mmol/L 23 - 31 mmol/L [facility] Creatinine [Mass/Vol] 0.84 mg/dL 0.72 - 1.25 mg/dL [facility] GFR/1.73 sq M.predicted (S/P/Bld) [Vol rate/Area] - PINF [facility] Glucose [Mass/Vol] 97 mg/dL 82 - 115 mg/dL [facility] Interpretation and review of laboratory results Abnormal [facility] Potassium [Moles/Vol] 3.5 mmol/L 3.5 - 5.1 mmol/L [facility] Protein [Mass/Vol] 5.5 g/dL Low 6.4 - 8.3 g/dL [facility] Sodium [Moles/Vol] 134 mmol/L Low 136 - 145 mmol/L [facility] Urea nitrogen [Mass/Vol] 26 mg/dL High 9 - 23 mg/dL [facility] Laboratory - Chemistry and C hemistry - challengeon 06-10-2025 Glucose [Mass/Vol] 230 mg/dL High 70 - 100 mg/dL [facility] Glucose [Mass/Vol] 195 mg/dL High 70 - 100 mg/dL [facility] Glucose [Mass/Vol] 91 mg/dL 70 - 100 mg/dL [facility] Magnesium [Mass/Vol] 1.8 mg/dL 1.6 - 2 .6 mg/dL [facility] Laboratory - Hematology and Cell countson 06-10-2025 Band form neutrophils (Bld) [#/Vol] 0.4 10*3/uL High NINF - 0.0 10*3/uL [facility] Band form neutrophils/100 WBC (Bld) 5 % High NINF - 0 % [facility] Dingess cells LM Ql (Bld) Slight Abnormal (none) [facility] Eosinophils (Bld) [#/Vol] 0.5 10*3/uL 0.0 - 0.5 10*3/uL [facility] Eosinophils/100 WBC (Bld) 6 % 0 - 6 % [facility] Lymphocytes (Bld) [#/Vol] 0.2 10*3/uL Low 1.0 - 4.3 10*3/uL [facility] Lymphocytes/100 WBC (Bld) 2 % Low 15 - 45 % [facility] Metamyelocytes (Bld) [#/Vol] 0.1 10*3/uL High NINF - 0.0 10*3/uL [facility] Metamyelocytes/100 WBC (Bld) 1 % High NINF - 0 % [facility] Monocytes (Bld) [#/Vol] 0 10*3/uL 0.0 - 0.9 10*3/uL [facility] Monocytes/100 WBC (Bld) 0 % Low 5 - 13 % [facility] Myelocytes (Bld) [#/Vol] 0.2 10*3/uL High NINF - 0.0 10*3/uL [facility] Myelocytes/100 WBC (Bld) 3 % High NINF - 0 % [facility] Neutrophils (Bld) [#/Vol] 7.1 10*3/uL 1.8 - 7.5 10*3/uL [facility] RBC morphology finding Nom (Bld) abnormal [facility] Segmented neutrophils/100 WBC (Bld) 80 % 38 - 82 % [facility] Target cells LM Ql (Bld) Slight Abnormal (none) [facility] Variant lymphocytes (Bld) [#/Vol] 0.1 10*3/uL High NINF - 0.0 10*3/uL [facility] Variant lymphocytes/100 WBC (Bld) 1 % High NINF - 0 % [facility] MAGNESIUMon 06-10-2025 Magnesium [Mass/Vol] 1.8 mg/dL Normal 1.6-2.6 [facility] Comment on above: Result Comment: ANUPAM Alonso COMMENTS:Higher values can be expected in females during menses. Performed By: #### L [id number], LAB17 ####Fire Operations Forester: MELI CARRILLO ([phone])[facility] ([facility])[address] [place] [address] MANUAL DIFFERENTIAL (CELLAVI WESTON)on 06-10-2025 ACANTHOCYTES (PRESENCE) IN BLOOD BY LIGHT MICROSCOPY Slight Abnormal (none) [facility] Comment on above: Performed By: #### L [id number], [id number] ####Fire Operations Forester: MELI CARRILLO ([phone])[facility] ([facility])[address] BAND NEUTROPHILS TOTAL PER COUNTED LEUKOCYTES BY MANUAL COUNT 5 Normal [facility] Comment on above: Performed By: #### L [id number], [id number] ####Fire Operations Forester: MELI CARRILLO ([id number])[facility] ([facility])[address] BANDS (10*3/UL) IN BLOOD-CELLAVISION 0.4 10*3/uL High <=0.0 [facility] Comment on above: Performed By: #### L [id number], [id number] ####Fire Operations Forester: MELI GERARDO ([phone])[facility] (SBHLAB)[address] [place] [address] [place] BASOPHILS TOTAL PER COUNTED LEUKOCYTES BY MANUAL COUNT Normal [facility] Comment on above: Performed By: #### L [id number], [id number] ####Fire Operations Forester: MELI GERARDO ([phone])[facility] (SBHLAB)[address] [place] [address] [place] BLASTS TOTAL PER COUNTED LEUKOCYTES BY MANUAL COUNT Normal [facility] Comment on above: Performed By: #### L [id number], [id number] ####Fire Operations Forester: MELI CARRILLO ([phone])[facility] [place] (SBHLAB)[address] [place] [address] [place] TRACY CELLS PRESENCE IN BLOOD BY LIGHT MICROSCOPY Slight Abnormal (none) [facility] Comment on above: Performed By: #### L [id number], [id number] ####Fire Operations Forester: MELI GERARDO ([phone])[facility] [place] (SBHLAB)[address] [place] [address] [place] EOSINOPHILS (10*3/UL) IN BLOOD-CELLAVISION 0.5 10*3/uL Normal 0.0-0.5 [facility] Comment on above: Performed By: #### L [id number], [id number] ####Fire Operations Forester: MELI LEECALDERON ([phone])[facility] [place] (SBHLAB)[address] [place] [address] [place] EOSINOPHILS TOTAL PER COUNTED LEUKOCYTES BY MANUAL COUNT 6 High 0-1 [facility] Comment on above: Performed By: #### L [id number], [id number] ####Fire Operations Forester: MELI LEECALDERON ([phone])[facility] [place] (SBHLAB)[address] [place] [address] [place] EOSINOPHILS/100 LEUKOCYTES IN BLOOD-CELLAVISION 6 % Normal 0-6 [facility] Comment on above: Performed By: #### L [id number], [id number] ####Fire Operations Forester: MELI CARRILLO ([phone])[facility] (SBHLAB)[address] [place] [address] [place] LYMPHOCYTE VARIANT/100 LEUKOCYTES IN BLOOD- CELLAVISION 1 % High <=0 [facility] Comment on above: Performed By: #### L [id number], [id number] ####Fire Operations Forester: MELI CARRILLO ([phone])[facility] (SBHLAB)[address] [place] [address] [place] LYMPHOCYTES (10*3/UL) IN BLOOD-CELLAVISION 0.2 10*3/uL Low 1.0-4.3 [facility] Comment on above: Performed By: #### L [id number], [id number] ####Fire Operations Forester: MELI CARRILLO ([id number])[facility] (SBHLAB)[address] [place] [address] [place] LYMPHOCYTES TOTAL PER COUNTED LEUKOCYTES BY MANUAL COUNT 2 Normal [facility] Comment on above: Performed By: #### L [id number], [id number] ####Fire Operations Forester: MELI CARRILLO ([id number])[facility] (SBHLAB)[address] [place] [address] [place] LYMPHOCYTES/100 LEUKOCYTES IN BLOOD-CELLAVISION 2 % Low 15-45 [facility] Comment on above: Performed By: #### L [id number], [id number] ####Fire Operations Forester: MELI CARRILLO ([phone])[facility] (SBHLAB)[address] [place] [address] [place] METAMYELOCYTES (10*3/UL) IN BLOOD-CELLAVISION 0.1 10*3/uL High <=0.0 [facility] Comment on above: Performed By: #### L [id number], [id number] ####Fire Operations Forester: MELI CARRILLO ([phone])[facility] (SBHLAB)[address] [place] [address] [place] METAMYELOCYTES TOTAL PER COUNTED LEUKOCYTES BY MANUAL COUNT 1 Normal [facility] Comment on above: Performed By: #### L [id number], [id number] ####Fire Operations Forester: MELI CARRILLO ([phone])[facility] (SBHLAB)[address] [place] [address] [place] METAMYELOCYTES/100 LEUKOCYTES IN BLOOD-CELLAVISION 1 % High <=0 [facility] Comment on above: Performed By: #### L [id number], [id number] ####Fire Operations Forester: MELI CARRILLO ([id number])[facility] [place] (SB[facility])[address] [place] [address] [place] MONOCYTES (10*3/UL) IN BLOOD-CELLAVISION 0.0 10*3/uL Normal 0.0-0.9 [facility] Comment on above: Performed By: #### L [id number], [id number] ####Fire Operations Forester: MELI CARRILLO ([id number])[facility] (SBHLAB)[address] [place] [address] [place] MONOCYTES TOTAL PER COUNTED LEUKOCYTES BY MANUAL COUNT 0 Normal [facility] Comment on above: Performed By: #### L [id number], [id number] ####Fire Operations Forester: MELI CARRILLO ([phone])[facility] (SBHLAB)[address] [place] [address] [place] MONOCYTES/100 LEUKOCYTES IN BLOOD-RIGOBERTO 0 % Low 5-13 [facility] Comment on above: Performed By: #### L [id number], [id number] ####Fire Operations Forester: MELI CARRILLO ([id number])[facility] [place] (SB[facility])[address] [place] [address] [place] MYELOCYTES (10*3/UL) IN BLOOD-CELLAVISION 0.2 10*3/uL High <=0.0 [facility] Comment on above: Performed By: #### L [id number], [id number] ####Fire Operations Forester: MELI CARRILLO ([phone])[facility] (SBHL[facility])[address] [place] [address] [place] MYELOCYTES COUNTED BY MANUAL COUNT 3 Normal [facility] Comment on above: Performed By: #### L [id number], [id number] ####Fire Operations Forester: MELI CARRILLO ([id number])[facility] (SB[facility])[address] [place] [address] [place] MYELOCYTES/100 LEUKOCYTES IN BLOOD-CELLAVISION 3 % High <=0 [facility] Comment on above: Performed By: #### L [id number], [id number] ####Fire Operations Forester: MELI CARRILLO ([id number])[facility] (SB[facility])[address] [place] [address] [place] NEUTROPHILS BAND FORM/100 LEUKOCYTES IN BLOOD-CELLAVISI 5 % High <=0 [facility] Comment on above: Performed By: #### L [id number], [id number] ####Fire Operations Forester: MELI CARRILLO ([id number])[facility] (SBHLAB)[address] [place] [address] [place] NEUTROPHILS TOTAL PER COUNTED LEUKOCYTES BY MANUAL COUNT 81 Normal [facility] Comment on above: Performed By: #### L [id number], [id number] ####Fire Operations Forester: MELI CARRILLO ([id number])[facility] (SB[facility])[address] [place] [address] [place] PROMYELOCYTES TOTAL PER COUNTED LEUKOCYTES BY MANUAL COUNT [facility] Comment on above: Performed By: #### L [id number], [id number] ####Fire Operations Forester: MELI CARRILLO ([id number])[facility] (SB[facility]AB)[address] [place] [address] [place] RBC MORPHOLOGY IN BLOOD abnormal Normal S [facility] Comment on above: Performed By: #### L [id number], [id number] ####Fire Operations Forester: MELI CARRILLO ([id number])[facility] (SB[facility])[address] [place] [address] [place] SEGMENTED NEUTROPHILS (10*3/UL) IN BLOOD-CELLAVISION 7.1 10*3/uL Normal 1.8-7.5 [facility] Comment on above: Performed By: #### L [id number], [id number] ####Fire Operations Forester: MELI CARRILLO ([phone])[facility] [place] (SB[facility])[address] SEGMENTED NEUTROPHILS/100 LEUKOCYTES-CE 80 % Normal 38-82 [facility] Comment on above: Performed By: #### L [id number], [id number] ####Fire Operations Forester: MELI CARRILLO ([id number])[facility] [place] ([facility])[address] TARGET CELLS IN BLOOD BY LIGHT MICROSCOPY Slight Abnormal (none) [facility] Comment on above: Performed By: #### L [id number], [id number] ####Fire Operations Forester: MELI CARRILLO ([phone])[facility] [place] ([facility])[address] UNCLASSIFIED CELLS TOTAL PER COUNTED LEUKOCYTES BY MANUAL COUNT Normal [facility] Comment on above: Performed By: #### L [id number], [id number] ####Fire Operations Forester: MELI CARRILLO ([phone])[facility] [place] ([facility])[address] VARIANT LYMPHOCYTES (10*3/UL) IN BLOOD-CELLAVISION 0.1 10*3/uL High <=0.0 [facility] Comment on above: Performed By: #### L [id number], [id number] ####Fire Operations Forester: MELI CARRILLO ([phone])[facility] [place] ([facility])[address] [place] [address] [place] VARIANT LYMPHOCYTES TOTAL PER COUNTED LEUKOCYTES BY MANUAL COUNT 1 Normal [facility] Comment on above: Performed By: #### L [id number], [id number] ####Fire Operations Forester: MELI CARRILLO ([phone])[facility] [place] (SB[facility])[address] [place] [address] [place] MR Shoulder - right WO and W contrast Trish 10-09-[address] [facility] Radiology Study observation (narrative) [facility] MR Shoulder - right WO and W contrast IVOrdered By: Ric Uriostegui on 06-10-2025 [facility] Work Phone: Magnesium [Mass/Vol]on 06-10 Interpretation and review of laboratory results Normal [facility] No Panel Informationon 06-10 Interpretation and review of laboratory results Abnormal [facility] RADIOLOGY [facility] Radiology Study observation (narrative) [facility] Interpretation and review of laboratory results Abnormal [facility] Interpretation and review of laboratory results Normal [facility] Atypical Lymphocytes Manual 1 [facility] Bands Manual 5 [facility] Eosinophils Manual 6 High 0 - 1 [facility] Interpretation and review of laboratory results Abnormal [facility] Lymphocytes Manual 2 [facility] Metamyelocytes Manual 1 [facility] Monocytes Manual 0 [facility] Myelocytes Manual 3 [facility] Neutrophils Manual 81 [facility] No Panel InformationOrdered By: Luis F Caraballo on 06-10-2025 [facility] Work Phone: Nursing Noteon 06-10-2025 [facility] Spoke with Nisreen. Normal [facility] Nursing Note Normal [facility] Nursing Note Normal [facility] Nursing Note Notified Devante Ko, and Elena LAM regarding process for discharge today. Normal [facility] Progress Noteon 06-10-2025 Progress Note Normal [facility] Progress Note Normal [facility] Progress Note PHYSICAL THERAPY [facility] Name/MRN: Krystina Markham ([id number]) Date: 06/10/2025 Treatment is being deferred at present because currently just entered and stated would be a while. Will continue to follow . Natalie Montejo PTA Normal [facility] Progress Note Normal [facility] Progress Note Normal [facility] Progress Note Normal [facility] Progress Note Normal [facility] Progress Note Normal [facility] [id number] 06-09-2025 [id number] Normal [facility] [id number] Patient Choice Patient Name: KRYSTINA MARKHAM Date of : 1955 Normal [facility] Bacteria identified Cx Nom ( Bld)on 06-09-2025 Interpretation and review of laboratory results Normal [facility] C-REACTIVE PROTEINon 025 CRP [Mass/Vol] 19.4 mg/L High <5.0 [facility] Comment on above: Performed By: #### L [id number] ####Fire Operations Forester: MELI CARRILLO ([phone])[facility] ([facility])[address] [place] [address] CBC W Auto Differential pane l (Bld)on 06-09-2025 Erythrocyte distribution width (RBC) [Ratio] 13.4 % 11.5 - 15.0 % [facility] Hematocrit (Bld) [Volume fraction] 35.7 % Low 40.0 - 52.0 % [facility] Hemoglobin (Bld) [Mass/Vol] 12.4 g/dL Low 13.0 - 18.0 g/dL [facility] IPF 3 [facility] MCH (RBC) [Entitic mass] 30 pg 26.0 - 34.0 pg [facility] MCHC (RBC) [Mass/Vol] 34.7 % 30.5 - 36.0 % [facility] MCV (RBC) [Entitic vol] 86.4 fL 77.0 - 99.0 fL [facility] Nucleated RBC/100 WBC (Bld) [Ratio] 0 % [facility] Platelet mean volume (Bld) [Entitic vol] 9.9 fL 9.0 - 12.7 fL [facility] Platelets (Bld) [#/Vol] 135 10*3/uL Low 140 - 440 10*3/uL [facility] RBC (Bld) [#/Vol] 4.13 10*6/uL Low 4.40 - 5.9 0 10*6/uL [facility] WBC (Bld) [#/Vol] 7.4 10*3/uL 3.6 - 10.7 10*3/uL [facility] CBC WITH AUTO DIFFERENTIALon 06-09-2025 Erythrocyte distribution width (RBC) [Ratio] 13.4 % Normal 11.5-15.0 [facility] Comment on above: Performed By: #### L [id number], [id number] ####Fire Operations Forester: MELI CARRILLO ([phone])[facility] (SBHLAB)[address] [place] [address] Hematocrit (Bld) [Volume fraction] 35.7 % Low 40.0-52.0 [facility] Comment on above: Performed By: #### L [id number], [id number] ####Fire Operations Forester: MELI CARRILLO ([phone])[facility] ([facility])[address] [place] [address] Hemoglobin (Bld) [Mass/Vol] 12.4 g/dL Low 13.0-18.0 [facility] Comment on above: Performed By: #### L [id number], [id number] ####Fire Operations Forester: MELI CARRILLO ([phone])[facility] ([facility])[address] [place] [address] IPF 3 Normal [facility] Comment on above: Performed By: #### L [id number], [id number] ####Fire Operations Forester: MELI CARRILLO ([id number])[facility] (SBAB)[address] [place] [address] MCH (RBC) [Entitic mass] 30.0 pg Normal 26.0-34.0 [facility] Comment on above: Performed By: #### L [id number], [id number] ####Fire Operations Forester: MELI CARRILLO ([phone])[facility] (SBAB)[address] [place] [address] MCHC 34.7 % Normal 30.5-36.0 [facility] Comment on above: Performed By: #### L [id number], [id number] ####Fire Operations Forester: MELI CARRILLO ([phone])[facility] (SBHLAB)[address] MCV (RBC) [Entitic vol] 86.4 fL Normal 77.0-99.0 [facility] Comment on above: Performed By: #### L [id number], [id number] ####Fire Operations Forester: MELI CARRILLO ([phone])[facility] [place] (SB[facility])[address] NRBC 0.0 /100 WBCs Normal 0.0-2.0 [facility] Comment on above: Performed By: #### L [id number], [id number] ####Fire Operations Forester: MELI PEREZMASSIEL ([phone])[facility] [place] (SB[facility])[address] [place] [address] Platelet mean volume (Bld) [Entitic vol] 9.9 fL Normal 9.0-12.7 [facility] Comment on above: Performed By: #### L [id number], [id number] ####Fire Operations Forester: MELI CARRILLO ([phone])[facility] [place] ([facility])[address] Platelets (Bld) [#/Vol] 135 10*3/uL Low 140-440 [facility] Comment on above: Performed By: #### L [id number], [id number] ####Fire Operations Forester: MELI CARRILLO ([phone])[facility] [place] ([facility])[address] RBC (Bld) [#/Vol] 4.13 10*6/uL Low 4.40-5.90 [facility] Comment on above: Performed By: #### L [id number], [id number] ####Fire Operations Forester: MELI PEREZMASSIEL ([phone])[facility] [place] ([facility])[address] [place] [address] [place] WBC (Bld) [#/Vol] 7.4 10*3/uL Normal 3.6-10.7 [facility] Comment on above: Performed By: #### L [id number], [id number] ####Fire Operations Forester: MELI CARRILLO ([phone])[facility] ([facility])[address] COMPREHENSIVE METABOLIC PANE Maciel 06-09-2025 Albumin [Mass/Vol] 2.8 g/dL Low 3.4-4.8 [facility] Comment on above: Performed By: #### L [id number] ####Fire Operations Forester: MELI CARRILLO ([phone])[facility] ([facility])[address] ALP [Catalytic activity/Vol] 88 U/L Normal 40-150 [facility] Comment on above: Performed By: #### L [id number] ####Fire Operations Forester: MELI CARRILLO ([id number])[facility] ([facility])[address] ALT [Catalytic activity/Vol] 42 U/L High <40 [facility] Comment on above: Performed By: #### L [id number] ####Fire Operations Forester: MELI CARRILLO ([phone])[facility] ([facility])[address] Anion gap [Moles/Vol] 11 mmol/L Normal 3-13 [facility] Comment on above: Performed By: #### L [id number] ####Fire Operations Forester: MELI CARRILLO ([phone])[facility] ([facility])[address] AST [Catalytic activity/Vol] 16 U/L Normal <34 [facility] Comment on above: Performed By: #### L [id number] ####Fire Operations Forester: MELI CARRILLO ([phone])[facility] ([facility])[address] Bilirubin [Mass/Vol] 0.4 mg/dL Normal <1.2 [facility] Comment on above: Performed By: #### L [id number] ####Fire Operations Forester: MELI PEREZMASSIEL ([phone])[facility] [place] ([facility])[address] Calcium [Mass/Vol] 8.7 mg/dL Low 8.8-10.0 [facility] Comment on above: Performed By: #### L [id number] ####Fire Operations Forester: MELI LEECALDERON ([id number])[facility] [place] (SBHL[facility])[address] Chloride [Moles/Vol] 95 mmol/L Low 98-107 [facility] Comment on above: Performed By: #### L [id number] ####Fire Operations Forester: MELI LEECALDERON ([id number])[facility] [place] (SB[facility])[address] CO2 [Moles/Vol] 26 mmol/L Normal 23-31 [facility] Comment on above: Performed By: #### L [id number] ####Fire Operations Forester: MELI PEREZMASSIEL ([id number])[facility] [place] (SBHLAB)[address] Creatinine [Mass/Vol] 0.82 mg/dL Normal 0.72-1.25 [facility] Comment on above: Performed By: #### L AB17 ####Fire Operations Forester: MELI PEREZMASSIEL ([id number])[facility] [place] (SBHLAB)[address] GLOMERULAR FILTRATION RATE ML/MIN/1.73 SQ M.PREDICTED >90.0 Normal >60.0 [facility] Comment on above: Result Comment: Calc ulation based on the Chronic Kidney Disease Epidemiology Collaboration (CKD-EPI) equation refit without adjustment for race Performed By: #### L [id number] ####Fire Operations Forester: MELI CARRILLO ([id number])[facility] [place] (SBHLAB)[address] Glucose [Mass/Vol] 98 mg/dL Normal 82-115 [facility] Comment on above: Performed By: #### L [id number] ####Fire Operations Forester: MELI CARRILLO ([phone])[facility] ([facility])[address] Potassium [Moles/Vol] 3.7 mmol/L Normal 3.5-5.1 [facility] Comment on above: Result Comment: [facility] potassium values may be up to 0.5 mmol/L lower than serum values. Performed By: #### L [id number] ####Fire Operations Forester: MELI CARRILLO ([phone])[facility] ([facility])[address] Protein [Mass/Vol] 6.0 g/dL Low 6.4-8.3 [facility] Comment on above: Performed By: #### L [id number] ####Fire Operations Forester: MELI CARRILLO ([id number])[facility] (SBHLAB)[address] Sodium [Moles/Vol] 132 mmol/L Low 136-145 [facility] Comment on above: Performed By: #### L [id number] ####Fire Operations Forester: MELI CARRILLO ([phone])[facility] (SBHLAB)[address] Urea nitrogen [Mass/Vol] 29 mg/dL High 9-23 [facility] Comment on above: Performed By: #### L [id number] ####Fire Operations Forester: MELI CARRILLO ([id number])[facility] (SBHLAB)[address] CRP [Mass/Vol]on 06-09-2025 Interpretation and review of laboratory results Abnormal [facility] Comprehensive metabolic 1998 panelon 06-09-2025 Albumin [Mass/Vol] 2.8 g/dL Low 3.4 - 4.8 g/dL [facility] ALP [Catalytic activity/Vol] 88 U/L 40 - 150 U/L [facility] ALT [Catalytic activity/Vol] 42 U/L High NINF - 40 U/L [facility] Anion gap [Moles/Vol] 11 mmol/L 3 - 13 mmol/L [facility] AST [Catalytic activity/Vol] 16 U/L NINF - 34 U/L [facility] Bilirubin [Mass/Vol] 0.4 mg/dL NINF - 1.2 mg/dL [facility] Calcium [Mass/Vol] 8.7 mg/dL Low 8.8 - 10. 0 mg/dL [facility] Chloride [Moles/Vol] 95 mmol/L Low 98 - 10 7 mmol/L [facility] CO2 [Moles/Vol] 26 mmol/L 23 - 31 mmol/L [facility] Creatinine [Mass/Vol] 0.82 mg/dL 0.72 - 1.25 mg/dL [facility] GFR/1.73 sq M.predicted (S/P/Bld) [Vol rate/Area] - PINF [facility] Glucose [Mass/Vol] 98 mg/dL 82 - 115 mg/dL [facility] Interpretation and review of laboratory results Abnormal [facility] Potassium [Moles/Vol] 3.7 mmol/L 3.5 - 5.1 mmol/L [facility] Protein [Mass/Vol] 6 g/dL Low 6.4 - 8.3 g/dL [facility] Sodium [Moles/Vol] 132 mmol/L Low 136 - 145 mmol/L [facility] Urea nitrogen [Mass/Vol] 29 mg/dL High 9 - 23 mg/dL [facility] Consulton 06-09-2025 Consult Normal [facility] Consult Normal [facility] ECG 12-LEADon 06-09-2025 ECG 12-LEAD IMPRESSION: Atrial fibrillation Left bundle branch block PVC Electronically Signed On 06-09-2025 18:01:11 EDT by Ric Foote Normal [facility] ESR (Bld) [Velocity]on 06-09 Interpretation and review of laboratory results Normal [facility] Laboratory - Chemistry and C hemistry - challengeon 06-09-2025 Glucose [Mass/Vol] 206 mg/dL High 70 - 100 mg/dL [facility] CRP [Mass/Vol] 19.4 mg/L High NINF - 5.0 mg/L [facility] Glucose [Mass/Vol] 224 mg/dL High 70 - 100 mg/dL [facility] Glucose [Mass/Vol] 106 mg/dL High 70 - 100 mg/dL [facility] Glucose [Mass/Vol] 82 mg/dL 70 - 100 mg/dL [facility] Laboratory - Hematology and Cell countson 06-09-2025 ESR (Bld) [Velocity] 8 mm/h [facility] Laboratory - Microbiology an d Antimicrobial susceptibilityon 06-09-2025 Bacteria identified Cx Nom (Bld) No growth at 5 days [facility] MANUAL DIFFERENTIALon 2024 BAND NEUTROPHILS TOTAL PER COUNTED LEUKOCYTES BY MANUAL COUNT 2 Normal [facility] Comment on above: Performed By: #### L [id number], [id number] ####Fire Operations Forester: MELI CARRILLO ([id number])[facility] [place] (SBHLAB)[address] [place] [address] [place] BANDS 0.1 10*3/uL High <=0.0 [facility] Comment on above: Performed By: #### L [id number], [id number] ####Fire Operations Forester: MELI CARRILLO ([id number])[facility] [place] (SBHLAB)[address] [place] [address] [place] BASOPHILS (10*3/UL) IN BLOOD BY MANUAL COUNT 0.1 10*3/uL Normal 0.0-0.2 [facility] Comment on above: Performed By: #### L [id number], [id number] ####Fire Operations Forester: MELI CARRILLO ([phone])[facility] [place] (SBHLAB)[address] [place] [address] [place] BASOPHILS TOTAL PER COUNTED LEUKOCYTES BY MANUAL COUNT 1 Normal [facility] Comment on above: Performed By: #### L [id number], [id number] ####Fire Operations Forester: MELI CARRILLO ([phone])[facility] [place] (SBHLAB)[address] [place] [address] [place] BASOPHILS/100 LEUKOCYTES IN BLOOD BY MANUAL COUNT 1 % Normal 0-2 [facility] Comment on above: Performed By: #### L [id number], [id number] ####Fire Operations Forester: MELI CARRILLO ([phone])[facility] [place] (SB[facility])[address] [place] [address] [place] TRACY CELLS PRESENCE IN BLOOD BY LIGHT MICROSCOPY Slight Abnormal (none) [facility] Comment on above: Performed By: #### L [id number], [id number] ####Fire Operations Forester: MELI CARRILLO ([phone])[facility] [place] (SBHL[facility])[address] [place] [address] [place] CELLS COUNTED TOTAL (#) IN BLOOD 100 Normal [facility] Comment on above: Performed By: #### L [id number], [id number] ####Fire Operations Forester: MELI CARRILLO ([id number])[facility] [place] (SBHLAB)[address] [place] [address] [place] DIFFERENTIAL METHOD Manual differential performed Normal [facility] Comment on above: Performed By: #### L [id number], [id number] ####Fire Operations Forester: MELI CARRILLO ([phone])[facility] ([facility])[address] [place] [address] [place] EOSINOPHILS (10*3/UL) IN BLOOD BY MANUAL COUNT 0.2 10*3/uL Normal 0.0-0.5 [facility] Comment on above: Performed By: #### L [id number], [id number] ####Fire Operations Forester: MELI CARRILLO ([phone])[facility] [place] (SBHLAB)[address] [place] [address] [place] EOSINOPHILS TOTAL PER COUNTED LEUKOCYTES BY MANUAL COUNT 3 High 0-1 [facility] Comment on above: Performed By: #### L [id number], [id number] ####Fire Operations Forester: MELI CARRILLO ([phone])[facility] [place] (SB[facility])[address] [place] [address] [place] EOSINOPHILS/100 LEUKOCYTES IN BLOOD BY MANUAL COUNT 3 % Normal 0-6 [facility] Comment on above: Performed By: #### L [id number], [id number] ####Fire Operations Forester: MELI CARRILLO ([phone])[facility] [place] (SB[facility])[address] [place] [address] [place] LEUKOCYTE MORPHOLOGY FINDING IN BLOOD Normal Normal [facility] Comment on above: Performed By: #### L [id number], [id number] ####Fire Operations Forester: MELI GERARDO ([phone])[facility] [place] (SBHLAB)[address] [place] [address] [place] LYMPHOCYTES (10*3/UL) IN BLOOD BY MANUAL COUNT 0.7 10*3/uL Low 1.0-4.3 [facility] Comment on above: Performed By: #### L [id number], [id number] ####Fire Operations Forester: MELI LEECALDERON ([phone])[facility] [place] (SBHLAB)[address] [place] [address] [place] LYMPHOCYTES TOTAL PER COUNTED LEUKOCYTES BY MANUAL COUNT 10 Normal [facility] Comment on above: Performed By: #### L [id number], [id number] ####Fire Operations Forester: MELI LEECALDERON ([phone])[facility] [place] (SBHLAB)[address] [place] [address] [place] LYMPHOCYTES/100 LEUKOCYTES IN BLOOD BY MANUAL COUNT 10 % Low 15-45 [facility] Comment on above: Performed By: #### L [id number], [id number] ####Fire Operations Forester: MELI PEREZMASSIEL ([id number])[facility] [place] (SBHL[facility])[address] [place] [address] [place] MONOCYTES (10*3/UL) IN BLOOD BY MANUAL COUNT 0.4 10*3/uL Normal 0.0-0.9 [facility] Comment on above: Performed By: #### L [id number], [id number] ####Fire Operations Forester: MELI CARRILLO ([phone])[facility] [place] (SBHLAB)[address] [place] [address] [place] MONOCYTES TOTAL PER COUNTED LEUKOCYTES BY MANUAL COUNT 5 Normal [facility] Comment on above: Performed By: #### L [id number], [id number] ####Fire Operations Forester: MELI PEREZMASSIEL ([id number])[facility] [place] (SBHL[facility])[address] [place] [address] [place] MONOCYTES/100 LEUKOCYTES IN BLOOD BY MANUAL COUNT 5 % Normal 5-13 [facility] Comment on above: Performed By: #### L [id number], [id number] ####Fire Operations Forester: MELI GERARDO ([id number])[facility] [place] (SBHLAB)[address] [place] [address] [place] MYELOCYTES (10*3/UL) IN BLOOD BY MANUAL COUNT 0.1 10*3/uL High <=0.0 [facility] Comment on above: Performed By: #### L [id number], [id number] ####Fire Operations Forester: MELI LEECALDERON ([id number])[facility] [place] (SBHLAB)[address] [place] [address] [place] MYELOCYTES COUNTED BY MANUAL COUNT 2 Normal [facility] Comment on above: Performed By: #### L [id number], [id number] ####Fire Operations Forester: MELIIVELISSE LEECALDERON ([id number])[facility] [place] (SBHLAB)[address] [place] [address] [place] MYELOCYTES/100 LEUKOCYTES IN BLOOD BY MANUAL COUNT 2 % High <=0 [facility] Comment on above: Performed By: #### L [id number], [id number] ####Fire Operations Forester: MELI LEECALDERON ([id number])[facility] [place] (SBHLAB)[address] [place] [address] [place] NEUTROPHILS (SEGS+BANDS) (10*3/UL) BY MANUAL COUNT 5.8 10*3/uL Normal 1.8-7.0 [facility] Comment on above: Performed By: #### L [id number], [id number] ####Fire Operations Forester: MELI LEECALDERON ([id number])[facility] [place] (SBHLAB)[address] [place] [address] [place] NEUTROPHILS BAND FORM/100 LEUKOCYTES IN BLOOD BY MANUAL COUNT 2 % High <=0 [facility] Comment on above: Performed By: #### L [id number], [id number] ####Fire Operations Forester: MELI CARRILLO ([id number])[facility] [place] (SBHLAB)[address] [place] [address] [place] NEUTROPHILS TOTAL PER COUNTED LEUKOCYTES BY MANUAL COUNT 77 Normal [facility] Comment on above: Performed By: #### L [id number], [id number] ####Fire Operations Forester: MELI CARRILLO ([id number])[facility] [place] [address] PLATELET MORPHOLOGY IN BLOOD Normal Normal [facility] Comment on above: Performed By: #### L [id number], [id number] ####Fire Operations Forester: MELI CARRILLO ([phone])[facility] (SBHLAB)[address] POIKILOCYTOSIS (PRESENCE) IN BLOOD BY LIGHT MICROSCOPY Slight Abnormal (none) [facility] Comment on above: Performed By: #### L [id number], [id number] ####Fire Operations Forester: MELI CARRILLO ([id number])[facility] ([facility])[address] [place] [address] SEGEMENTED NEUTROPHILS/100 LEUKOCYTES BY MANUAL COUNT 77 % Normal 38-82 [facility] Comment on above: Performed By: #### L [id number], [id number] ####Fire Operations Forester: MELI CARRILLO ([id number])[facility] ([facility])[address] [place] [address] SEGMENTED NEUTROPHILS (10*3/UL)IN BLOOD BY MANUAL COUNT 5.8 10*3/uL Normal 1.8-7.5 [facility] Comment on above: Performed By: #### L [id number], [id number] ####Fire Operations Forester: MELI CARRILLO ([id number])[facility] (SBHLAB)[address] [place] [address] Manual differential performe d Ql (Bld)on 06-09-2025 Band form neutrophils (Bld) [#/Vol] 0.1 10*3/uL High NINF - 0.0 10*3/uL [facility] Band form neutrophils/100 WBC (Bld) 2 % High NINF - 0 % [facility] Bands Manual 2 [facility] Basophils (Bld) [#/Vol] 0.1 10*3/uL 0.0 - 0.2 10*3/uL [facility] Basophils Manual 1 [facility] Basophils/100 WBC (Bld) 1 % 0 - 2 % [facility] Dingess cells LM Ql (Bld) Slight Abnormal (none) [facility] Cells Counted Total (Bld) [#] 100 {cells} [facility] Differential Method Manual differential performed [facility] Eosinophils (Bld) [#/Vol] 0.2 10*3/uL 0.0 - 0.5 10*3/uL [facility] Eosinophils Manual 3 High 0 - 1 [facility] Eosinophils/100 WBC (Bld) 3 % 0 - 6 % [facility] Leukocyte morphology finding Nom (Bld) Normal [facility] Lymphocytes (Bld) [#/Vol] 0.7 10*3/uL Low 1.0 - 4.3 10*3/uL [facility] Lymphocytes Manual 10 [facility] Lymphocytes/100 WBC (Bld) 10 % Low 15 - 45 % [facility] Monocytes (Bld) [#/Vol] 0.4 10*3/uL 0.0 - 0.9 10*3/uL [facility] Monocytes Manual 5 [facility] Monocytes/100 WBC (Bld) 5 % 5 - 13 % [facility] Myelocytes (Bld) [#/Vol] 0.1 10*3/uL High NINF - 0.0 10*3/uL [facility] Myelocytes Manual 2 [facility] Myelocytes/100 WBC (Bld) 2 % High NINF - 0 % [facility] Neutrophils (Bld) [#/Vol] 5.8 10*3/uL 1.8 - 7.5 10*3/uL [facility] Neutrophils Manual 77 [facility] Platelet morphology finding Nom (Bld) Normal [facility] Poikilocytosis LM Ql (Bld) Slight Abnormal (none) [facility] Segmented neutrophils/100 WBC (Bld) 77 % 38 - 82 % [facility] No Panel Informationon 06-09 Interpretation and review of laboratory results Abnormal [facility] CV EPIPHANY [facility] Interpretation and review of laboratory results Abnormal [facility] Interpretation and review of laboratory results Abnormal [facility] Interpretation and review of laboratory results Normal [facility] Interpretation and review of laboratory results Abnormal [facility] No Panel InformationOrdered By: Ric Foote on 06-09-2025 P [place] 0 degrees [employer] Phone: VA Interval 0 ms [employer] Phone: QRS [place] -48 degrees [employer] Phone: QRSD Interval 169 ms [employer] Phone: QT Interval 446 ms [employer] Phone: QTC Interval 523 ms [employer] Phone: T Wave [place] 131 degrees [employer] Phone: [employer] Phone: Progress Noteon 06-09-2025 Progress Note Normal [facility] Progress Note Normal [facility] Progress Note Normal [facility] Progress Note Normal [facility] Progress Note Normal [facility] SEDIMENTATION RATE, AUTOMATE Don 06-09-2025 SEDIMENTATION RATE, ERYTHROCYTE 8 mm/hr Normal 0-10 [facility] [employer] [facility] Comment on above: Performed By: #### L [id number] ####Fire Operations Forester: MELI CARRILLO ([phone])[facility])[address] [place] [address] Vital signsOrdered By: Ric Foote on 06-09-2025 Heart rate 82 /min bpm [employer] Phone: XR Chest 2 Viewson [facility] Radiology Study observation (narrative) [employer] XR Chest 2 ViewsOrdered By: Mekhi Bonilla on 06-09-2025 [employer] Phone: XR Shoulder - right 2 Viewso n 06-09-2025 [facility] Radiology Study observation (narrative) [employer] XR Shoulder - right 2 ViewsO rdered By: Toi Willis on 06-09-2025 [employer] Phone: [phone] 06-08-2025 [phone] Notified by [facility] wireworker supervisor that auth has been approved by [facility]. FRANDY HERNANDEZ notified. Graeme good for 48 hrs. Normal [facility] [phone] Normal [facility] CBC W Auto Differential pane l (Bld)on 06-08-2025 Erythrocyte distribution width (RBC) [Ratio] 13.2 % 11.5 - 15.0 % [facility] Hematocrit (Bld) [Volume fraction] 35.7 % Low 40.0 - 52.0 % [facility] Hemoglobin (Bld) [Mass/Vol] 11.9 g/dL Low 13.0 - 18.0 g/dL [facility] MCH (RBC) [Entitic mass] 29.2 pg 26.0 - 34.0 pg [facility] MCHC (RBC) [Mass/Vol] 33.3 % 30.5 - 36.0 % [facility] MCV (RBC) [Entitic vol] 87.5 fL 77.0 - 99.0 fL [facility] Platelet mean volume (Bld) [Entitic vol] 9.8 fL 9.0 - 12.7 fL [facility] Platelets (Bld) [#/Vol] 143 10*3/uL 140 - 440 10*3/uL [facility] RBC (Bld) [#/Vol] 4.08 10*6/uL Low 4.40 - 5.9 0 10*6/uL [facility] WBC (Bld) [#/Vol] 6.5 10*3/uL 3.6 - 10.7 10*3/uL [facility] CBC WITH AUTO DIFFERENTIALon 06-08-2025 Erythrocyte distribution width (RBC) [Ratio] 13.2 % Normal 11.5-15.0 [facility] Comment on above: Performed By: #### L [id number], [id number] ####Fire Operations Forester: MELI CARRILLO ([phone])[address] Hematocrit (Bld) [Volume fraction] 35.7 % Low 40.0-52.0 [facility] Comment on above: Performed By: #### L [id number], [id number] ####Fire Operations Forester: MELI CARRILLO ([id number])[facility]ef[facility] [place]OPE[place] (SBHLAB)[address] Hemoglobin (Bld) [Mass/Vol] 11.9 g/dL Low 13.0-18.0 [facility] Comment on above: Performed By: #### L [id number], [id number] ####Fire Operations Forester: MELI CARRILLO ([id number])[facility]ENTEREstefania [facility]ILLASENORRE[facility] (SBHLAB)[address] MCH (RBC) [Entitic mass] 29.2 pg Normal 26.0-34.0 [facility] Comment on above: Performed By: #### L [id number], [id number] ####Fire Operations Forester: MELI CARRILLO ([id number])[facility]ENT[facility]efania [place] (SBHLAB)[address] MCHC 33.3 % Normal 30.5-36.0 [facility] Comment on above: Performed By: #### L [id number], [id number] ####Fire Operations Forester: MELI CARRILLO ([id number])[facility] [place] (SBHLAB)[address] MCV (RBC) [Entitic vol] 87.5 fL Normal 77.0-99.0 [facility] Comment on above: Performed By: #### L [id number], [id number] ####Fire Operations Forester: MELI CARRILLO ([id number])[facility] (SBHLAB)[address] Platelet mean volume (Bld) [Entitic vol] 9.8 fL Normal 9.0-12.7 [facility] Comment on above: Performed By: #### L [id number], [id number] ####Fire Operations Forester: MELI CARRILLO ([id number])[facility] (SBHLAB)[address] Platelets (Bld) [#/Vol] 143 10*3/uL Normal 140-440 [facility] Comment on above: Performed By: #### L [id number], [id number] ####Fire Operations Forester: MELI CARRILLO ([id number])[facility] [place] (SBHLAB)[address] RBC (Bld) [#/Vol] 4.08 10*6/uL Low 4.40-5.90 [facility] Comment on above: Performed By: #### L [id number], [id number] ####Fire Operations Forester: MELI CARRILLO ([id number])[facility] [place] ([facility])[address] WBC (Bld) [#/Vol] 6.5 10*3/uL Normal 3.6-10.7 [facility] Comment on above: Performed By: #### L [id number], [id number] ####Fire Operations Forester: MELI CARRILLO ([phone])[facility] [place] (SB[facility])[address] COMPREHENSIVE METABOLIC PANE Maciel 06-08-2025 Albumin [Mass/Vol] 2.9 g/dL Low 3.4-4.8 [facility] Comment on above: Performed By: #### L [id number] ####Fire Operations Forester: MELI CARRILLO ([id number])[facility] [place] ([facility])[address] ALP [Catalytic activity/Vol] 96 U/L Normal 40-150 [facility] Comment on above: Performed By: #### L [id number] ####Fire Operations Forester: MELI CARRILLO ([phone])[facility] [place] (SB[facility])[address] ALT [Catalytic activity/Vol] 60 U/L High <40 [facility] Comment on above: Performed By: #### L AB17 ####Fire Operations Forester: MELI CARRILLO ([phone])[facility] [place] ([facility])[address] Anion gap [Moles/Vol] 13 mmol/L Normal 3-13 [facility] Comment on above: Performed By: #### L AB17 ####Fire Operations Forester: MELI CARRILLO ([id number])[facility])[address] AST [Catalytic activity/Vol] 20 U/L Normal <34 [facility] Comment on above: Performed By: #### L AB17 ####Fire Operations Forester: MELI CARRILLO ([phone])[facility] ([facility])[address] Bilirubin [Mass/Vol] 0.4 mg/dL Normal <1.2 [facility] Comment on above: Performed By: #### L [id number] ####Fire Operations Forester: MELI CARRILLO ([phone])[facility] ([facility])[address] [place] [address] Calcium [Mass/Vol] 9.0 mg/dL Normal 8.8-10.0 [facility] Comment on above: Performed By: #### L [id number] ####Fire Operations Forester: MELI CARRILLO ([phone])[facility] ([facility])[address] Chloride [Moles/Vol] 94 mmol/L Low 98-107 [facility] Comment on above: Performed By: #### L [id number] ####Fire Operations Forester: MELI CARRILLO ([phone])[facility] ([facility])[address] CO2 [Moles/Vol] 25 mmol/L Normal 23-31 [facility] Comment on above: Performed By: #### L [id number] ####Fire Operations Forester: MELI ACRRILLO ([phone])[facility] ([facility])[address] [place] [address] Creatinine [Mass/Vol] 0.89 mg/dL Normal 0.72-1.25 [facility] Comment on above: Performed By: #### L [id number] ####Fire Operations Forester: MELI CARRILLO ([phone])[facility] ([facility])[address] GLOMERULAR FILTRATION RATE ML/MIN/1.73 SQ M.PREDICTED >90.0 Normal >60.0 [facility] Comment on above: Result Comment: Calc ulation based on the Chronic Kidney Disease Epidemiology Collaboration (CKD-EPI) equation refit without adjustment for race Performed By: #### L [id number] ####Fire Operations Forester: MELI CARRILLO ([id number])[facility] ([facility] [facility])[address] Glucose [Mass/Vol] 122 mg/dL High 82-115 [facility] Comment on above: Performed By: #### L [id number] ####Fire Operations Forester: MELI CARRILLO ([id number])[facility] ([facility])[address] [place] [address] Potassium [Moles/Vol] 4.6 mmol/L Normal 3.5-5.1 [facility] Comment on above: Result Comment: [facility] potassium values may be up to 0.5 mmol/L lower than serum values. Performed By: #### L [id number] ####Fire Operations Forester: MELI CARRILLO ([phone])[facility] ([facility])[address] [place] [address] Protein [Mass/Vol] 6.4 g/dL Normal 6.4-8.3 [facility] Comment on above: Performed By: #### L [id number] ####Fire Operations Forester: MELI CARRILLO ([phone])[facility] ([facility])[address] [place], [place] [address] [place] Sodium [Moles/Vol] 132 mmol/L Low 136-145 [facility] Comment on above: Performed By: #### L [id number] ####Fire Operations Forester: MELI CARRILLO ([phone])[facility] ([facility])[address] [place] [address] [place] Urea nitrogen [Mass/Vol] 28 mg/dL High 9-23 [facility] Comment on above: Performed By: #### L [id number] ####Fire Operations Forester: MELI CARRILLO ([phone])[facility] (SBHLAB)[address] [place] [address] Comprehensive metabolic 1998 panelon 06-08-2025 Albumin [Mass/Vol] 2.9 g/dL Low 3.4 - 4.8 g/dL [facility] ALP [Catalytic activity/Vol] 96 U/L 40 - 150 U/L [facility] ALT [Catalytic activity/Vol] 60 U/L High NINF - 40 U/L [facility] Anion gap [Moles/Vol] 13 mmol/L 3 - 13 mmol/L [facility] AST [Catalytic activity/Vol] 20 U/L NINF - 34 U/L [facility] Bilirubin [Mass/Vol] 0.4 mg/dL NINF - 1.2 mg/dL [facility] Calcium [Mass/Vol] 9 mg/dL 8.8 - 10. 0 mg/dL [facility] Chloride [Moles/Vol] 94 mmol/L Low 98 - 10 7 mmol/L [facility] CO2 [Moles/Vol] 25 mmol/L 23 - 31 mmol/L [facility] Creatinine [Mass/Vol] 0.89 mg/dL 0.72 - 1.25 mg/dL [facility] GFR/1.73 sq M.predicted (S/P/Bld) [Vol rate/Area] - PINF [facility] Glucose [Mass/Vol] 122 mg/dL High 82 - 115 mg/dL [facility] Interpretation and review of laboratory results Abnormal [facility] Potassium [Moles/Vol] 4.6 mmol/L 3.5 - 5.1 mmol/L [facility] Protein [Mass/Vol] 6.4 g/dL 6.4 - 8.3 g/dL [facility] Sodium [Moles/Vol] 132 mmol/L Low 136 - 145 mmol/L [facility] Urea nitrogen [Mass/Vol] 28 mg/dL High 9 - 23 mg/dL [facility] ECG 12-LEADon 06-08-2025 ECG 12-LEAD IMPRESSION: Atrial fibrillation Left bundle branch block ST elevation secondary to IVCD Ventricular premature complex Electronically Signed On 06-08-2025 15:03:23 EDT by Melvi Fajardo [facility] - Chemistry and C hemistry - challengeon 06-08-2025 Glucose [Mass/Vol] 256 mg/dL High 70 - 100 mg/dL [facility] Glucose [Mass/Vol] 117 mg/dL High 70 - 100 mg/dL [facility] Glucose [Mass/Vol] 134 mg/dL High 70 - 100 mg/dL [facility] Glucose [Mass/Vol] 146 mg/dL High 70 - 100 mg/dL [facility] - Hematology and Cell countson 06-08-2025 Band form neutrophils (Bld) [#/Vol] 0.8 10*3/uL High NINF - 0.0 10*3/uL [facility] Band form neutrophils/100 WBC (Bld) 12 % High NINF - 0 % [facility] Basophils (Bld) [#/Vol] 0.1 10*3/uL 0.0 - 0.2 10*3/uL [facility] Basophils/100 WBC (Bld) 1 % 0 - 2 % [facility] Dingess cells LM Ql (Bld) Slight Abnormal (none) [facility] Eosinophils (Bld) [#/Vol] 0.1 10*3/uL 0.0 - 0.5 10*3/uL [facility] Eosinophils/100 WBC (Bld) 1 % 0 - 6 % [facility] Lymphocytes (Bld) [#/Vol] 0.2 10*3/uL Low 1.0 - 4.3 10*3/uL [facility] Lymphocytes/100 WBC (Bld) 3 % Low 15 - 45 % [facility] Monocytes (Bld) [#/Vol] 0.1 10*3/uL 0.0 - 0.9 10*3/uL [facility] Monocytes/100 WBC (Bld) 2 % Low 5 - 13 % [facility] Myelocytes (Bld) [#/Vol] 0.1 10*3/uL High NINF - 0.0 10*3/uL [facility] Myelocytes/100 WBC (Bld) 1 % High NINF - 0 % [facility] Neutrophils (Bld) [#/Vol] 5.9 10*3/uL 1.8 - 7.5 10*3/uL [facility] Poikilocytosis LM Ql (Bld) Moderate Abnormal (none) [facility] RBC morphology finding Nom (Bld) abnormal [facility] Segmented neutrophils/100 WBC (Bld) 78 % 38 - 82 % [facility] Target cells LM Ql (Bld) Slight Abnormal (none) [facility] Variant lymphocytes (Bld) [#/Vol] 0.1 10*3/uL High NINF - 0.0 10*3/uL [facility] Variant lymphocytes/100 WBC (Bld) 1 % High NINF - 0 % [facility] MANUAL DIFFERENTIAL (CELLAVI WESTON)on 06-08-2025 BAND NEUTROPHILS TOTAL PER COUNTED LEUKOCYTES BY MANUAL COUNT 12 Normal [facility] Comment on above: Performed By: #### L [id number], [id number] ####Fire Operations Forester: MELI CARRILLO ([id number])[facility] (SB[facility])[address] BANDS (10*3/UL) IN BLOOD-CELLAVISION 0.8 10*3/uL High <=0.0 [facility] Comment on above: Performed By: #### L [id number], [id number] ####Fire Operations Forester: MELI CARRILLO ([phone])[facility] ([facility])[address] [place] [address] [place] BASOPHILS (10*3/UL) IN BLOOD-CELLAVISION 0.1 10*3/uL Normal 0.0-0.2 [facility] Comment on above: Performed By: #### L [id number], [id number] ####Fire Operations Forester: MELI CARRILLO ([phone])[facility] [place] (SBHLAB)[address] [place] [address] [place] BASOPHILS TOTAL PER COUNTED LEUKOCYTES BY MANUAL COUNT 1 Normal [facility] Comment on above: Performed By: #### L [id number], [id number] ####Fire Operations Forester: MELI CARRILLO ([phone])[facility] [place] (SBHLAB)[address] [place] [address] [place] BASOPHILS/100 LEUKOCYTES IN BLOOD-CELLAVISION 1 % Normal 0-2 [facility] Comment on above: Performed By: #### L [id number], [id number] ####Fire Operations Forester: MELI PEREZMASSIEL ([phone])[facility] [place] (SBHLAB)[address] [place] [address] [place] BLASTS TOTAL PER COUNTED LEUKOCYTES BY MANUAL COUNT Normal [facility] Comment on above: Performed By: #### L [id number], [id number] ####Fire Operations Forester: MELI LEECALDERON ([id number])[facility] ([facility])[address] [place] [address] [place] TRACY CELLS PRESENCE IN BLOOD BY LIGHT MICROSCOPY Slight Abnormal (none) [facility] Comment on above: Performed By: #### L [id number], [id number] ####Fire Operations Forester: MELI LEECALDERON ([id number])[facility] ([facility])[address] [place] [address] [place] EOSINOPHILS (10*3/UL) IN BLOOD-CELLAVISION 0.1 10*3/uL Normal 0.0-0.5 [facility] Comment on above: Performed By: #### L [id number], [id number] ####Fire Operations Forester: MELI LEECALDERON ([phone])[facility] [place] (SB[facility]AB)[address] [place] [address] [place] EOSINOPHILS TOTAL PER COUNTED LEUKOCYTES BY MANUAL COUNT 1 Normal 0-1 [facility] Comment on above: Performed By: #### L [id number], [id number] ####Fire Operations Forester: MELI PEREZMASSIEL ([phone])[facility] [place] (SBHLAB)[address] [place] [address] [place] EOSINOPHILS/100 LEUKOCYTES IN BLOOD-CELLAVISION 1 % Normal 0-6 [facility] Comment on above: Performed By: #### L [id number], [id number] ####Fire Operations Forester: MELI PEREZMASSIEL ([phone])[facility] ([facility])[address] [place] [address] [place] LYMPHOCYTE VARIANT/100 LEUKOCYTES IN BLOOD- CELLAVISION 1 % High <=0 [facility] Comment on above: Performed By: #### L [id number], [id number] ####Fire Operations Forester: MELI LEECALDERON ([phone])[facility] [place] (SBHLAB)[address] [place] [address] [place] LYMPHOCYTES (10*3/UL) IN BLOOD-CELLAVISION 0.2 10*3/uL Low 1.0-4.3 [facility] Comment on above: Performed By: #### L [id number], [id number] ####Fire Operations Forester: MELI PEREZMASSIEL ([phone])[facility] [place] (SBHLAB)[address] [place] [address] [place] LYMPHOCYTES TOTAL PER COUNTED LEUKOCYTES BY MANUAL COUNT 3 Normal [facility] Comment on above: Performed By: #### L [id number], [id number] ####Fire Operations Forester: MELI LEECALDERON ([phone])[facility] [place] (SB[facility]AB)[address] [place] [address] [place] LYMPHOCYTES/100 LEUKOCYTES IN BLOOD-CELLAVISION 3 % Low 15-45 [facility] Comment on above: Performed By: #### L [id number], [id number] ####Fire Operations Forester: MELI CARRILLO ([phone])[facility] [place] (SBHLAB)[address] [place] [address] [place] METAMYELOCYTES TOTAL PER COUNTED LEUKOCYTES BY MANUAL COUNT Normal [facility] Comment on above: Performed By: #### L [id number], [id number] ####Fire Operations Forester: MELI PEREZMASSIEL ([phone])[facility] [place] (SB[facility]AB)[address] [place] [address] [place] MONOCYTES (10*3/UL) IN BLOOD-CELLAVISION 0.1 10*3/uL Normal 0.0-0.9 [facility] Comment on above: Performed By: #### L [id number], [id number] ####Fire Operations Forester: MELI CARRILLO ([phone])[facility] [place] (SBHLAB)[address] [place] [address] [place] MONOCYTES TOTAL PER COUNTED LEUKOCYTES BY MANUAL COUNT 2 Normal [facility] Comment on above: Performed By: #### L [id number], [id number] ####Fire Operations Forester: MELI CARRILLO ([phone])[facility] [place] (SBHLAB)[address] [place] [address] [place] MONOCYTES/100 LEUKOCYTES IN BLOOD-RIGOBERTO 2 % Low 5-13 [facility] Comment on above: Performed By: #### L [id number], [id number] ####Fire Operations Forester: MELI CARRILLO ([phone])[facility] [place] (SB[facility]AB)[address] [place] [address] [place] MYELOCYTES (10*3/UL) IN BLOOD-CELLAVISION 0.1 10*3/uL High <=0.0 [facility] Comment on above: Performed By: #### L [id number], [id number] ####Fire Operations Forester: MELI CARRILLO ([phone])[facility] [place] (SB[facility]AB)[address] [place] [address] [place] MYELOCYTES COUNTED BY MANUAL COUNT 1 Normal [facility] Comment on above: Performed By: #### L [id number], [id number] ####Fire Operations Forester: MELI CARRILLO ([id number])[facility] [place] (SB[facility]AB)[address] [place] [address] [place] MYELOCYTES/100 LEUKOCYTES IN BLOOD-CELLAVISION 1 % High <=0 [facility] Comment on above: Performed By: #### L [id number], [id number] ####Fire Operations Forester: MELI CARRILLO ([id number])[facility] [place] (SBHLAB)[address] [place] [address] [place] NEUTROPHILS BAND FORM/100 LEUKOCYTES IN BLOOD-CELLAVISI 12 % High <=0 [facility] Comment on above: Performed By: #### L [id number], [id number] ####Fire Operations Forester: MELI CARRILLO ([id number])[facility] [place] (SB[facility])[address] [place] [address] [place] NEUTROPHILS TOTAL PER COUNTED LEUKOCYTES BY MANUAL COUNT 79 Normal [facility] Comment on above: Performed By: #### L [id number], [id number] ####Fire Operations Forester: MELI CARRILLO ([id number])[facility] [place] (SBHLAB)[address] POIKILOCYTOSIS (PRESENCE) IN BLOOD BY LIGHT MICROSCOPY Moderate Abnormal (none) [facility] Comment on above: Performed By: #### L [id number], [id number] ####Fire Operations Forester: MELI CARRILLO ([phone])[facility] [place] (SBHLAB)[address] PROMYELOCYTES TOTAL PER COUNTED LEUKOCYTES BY MANUAL COUNT Normal [facility] Comment on above: Performed By: #### L [id number], [id number] ####Fire Operations Forester: MELI CARRILLO ([id number])[facility] [place] (SB[facility]AB)[address] RBC MORPHOLOGY IN BLOOD abnormal Normal [facility] Comment on above: Performed By: #### L [id number], [id number] ####Fire Operations Forester: MELI CARRILLO ([id number])[facility] [place] (SB[facility]AB)[address] [place] [address] [place] SEGMENTED NEUTROPHILS (10*3/UL) IN BLOOD-CELLAVISION 5.9 10*3/uL Normal 1.8-7.5 [facility] Comment on above: Performed By: #### L [id number], [id number] ####Fire Operations Forester: MELI CARRILLO ([phone])[facility] [place] (SB[facility])[address] [place] [address] [place] SEGMENTED NEUTROPHILS/100 LEUKOCYTES-CE 78 % Normal 38-82 [facility] Comment on above: Performed By: #### L [id number], [id number] ####Fire Operations Forester: MELI CARRILLO ([id number])[facility] [place] (SB[facility])[address] TARGET CELLS IN BLOOD BY LIGHT MICROSCOPY Slight Abnormal (none) [facility] Comment on above: Performed By: #### L [id number], [id number] ####Fire Operations Forester: MELI CARRILLO ([id number])[facility] [place] (SBHLAB)[address] UNCLASSIFIED CELLS TOTAL PER COUNTED LEUKOCYTES BY MANUAL COUNT Normal [facility] Comment on above: Performed By: #### L [id number], [id number] ####Fire Operations Forester: MELI CARRILLO ([id number])[facility] (SB[facility])[address] VARIANT LYMPHOCYTES (10*3/UL) IN BLOOD-CELLAVISION 0.1 10*3/uL High <=0.0 [facility] Comment on above: Performed By: #### L [id number], [id number] ####Fire Operations Forester: MELI CARRILLO ([phone])[facility] (SB[facility])[address] VARIANT LYMPHOCYTES TOTAL PER COUNTED LEUKOCYTES BY MANUAL COUNT 1 Normal [facility] Comment on above: Performed By: #### L [id number], [id number] ####Fire Operations Forester: MELI CARRILLO ([phone])[facility] (SB[facility])[address] No Panel Informationon 06-08 Interpretation and review of laboratory results Abnormal [facility] Interpretation and review of laboratory results Abnormal [facility] CV EPIPHANY [facility] Interpretation and review of laboratory results Abnormal [facility] Interpretation and review of laboratory results Abnormal [facility] Atypical Lymphocytes Manual 1 [facility] Bands Manual 12 [facility] Basophils Manual 1 [facility] Eosinophils Manual 1 0 - 1 [facility] Interpretation and review of laboratory results Abnormal [facility] Lymphocytes Manual 3 [facility] Monocytes Manual 2 [facility] Myelocytes Manual 1 [facility] Neutrophils Manual 79 [facility] No Panel InformationOrdered By: Melvi Ocampo on 06-08-2025 P [place] 0 degrees [facility] Work Phone: VA Interval 0 ms [facility] Work Phone: QRS [place] -81 degrees [employer] Work Phone: QRSD Interval 189 ms [employer] Work Phone: QT Interval 498 ms [employer] Work Phone: QTC Interval 540 ms [employer] Work Phone: T Wave [place] 89 degrees [employer] Work Phone: [employer] Work Phone: Nursing Noteon 06-08-2025 Nursing Note Normal [facility] Progress Noteon 06-08-2025 Progress Note Normal [facility] Progress Note Normal [facility] Progress Note Normal [facility] Progress Note Normal [facility] Progress Note Normal [facility] Progress Note Normal [facility] Progress Note Normal [facility] Progress Note Normal [facility] Vital signsOrdered By: Batsheva Ocampo on 06-08-2025 Heart rate 71 /min bpm [employer] Work Phone: [phone] 06-07-2025 [id number] Normal [facility] [employer] [facility] [phone] SENT UPDATED NOTES T O RETURN BACK TO [facility] via [employer] per [facility] request. Await review and response regarding ability to accept. [facility] notified. Normal [facility] CBC W Auto Differential pane l (Bld)on 06-07-2025 Basophils (Bld) [#/Vol] 0.1 10*3/uL 0.0 - 0.2 10*3/uL [facility] [employer] Basophils/100 WBC (Bld) 1 % 0.0 - 2.0 % [facility] [employer] Eosinophils (Bld) [#/Vol] 0.3 10*3/uL 0.0 - 0.5 10*3/uL [facility] [employer] Eosinophils/100 WBC (Bld) 5.4 % 0.0 - 6.0 % [facility] [employer] Erythrocyte distribution width (RBC) [Ratio] 13.1 % 11.5 - 15.0 % [facility] [employer] Hematocrit (Bld) [Volume fraction] 29.1 % Low 40.0 - 52.0 % [facility] Hemoglobin (Bld) [Mass/Vol] 9.9 g/dL Low 13.0 - 18.0 g/dL [facility] Immature granulocytes (Bld) [#/Vol] 0.1 10*3/uL High NINF - 0.1 10*3/uL [facility] Immature granulocytes/100 WBC (Bld) 0.8 % 0.0 - 2.0 % [facility] Interpretation and review of laboratory results Abnormal [facility] Lymphocytes (Bld) [#/Vol] 0.6 10*3/uL Low 1.0 - 4.3 10*3/uL [facility] Lymphocytes/100 WBC (Bld) 10.6 % Low 15.0 - 45.0 % [facility] MCH (RBC) [Entitic mass] 29.6 pg 26.0 - 34.0 pg [facility] MCHC (RBC) [Mass/Vol] 34 % 30.5 - 36.0 % [facility] MCV (RBC) [Entitic vol] 87.1 fL 77.0 - 99.0 fL [facility] Monocytes (Bld) [#/Vol] 0.5 10*3/uL 0.0 - 0.9 10*3/uL [facility] Monocytes/100 WBC (Bld) 8.6 % 5.0 - 13.0 % [facility] Neutrophils (Bld) [#/Vol] 4.4 10*3/uL 1.8 - 7.5 10*3/uL [facility] Neutrophils/100 WBC (Bld) 73.6 % 38.0 - 82.0 % [facility] Nucleated RBC/100 WBC (Bld) [Ratio] 0 % [facility] Platelet mean volume (Bld) [Entitic vol] 9.9 fL 9.0 - 12.7 fL [facility] Platelets (Bld) [#/Vol] 221 10*3/uL 140 - 440 10*3/uL [facility] RBC (Bld) [#/Vol] 3.34 10*6/uL Low 4.40 - 5.9 0 10*6/uL [facility] WBC (Bld) [#/Vol] 5.9 10*3/uL 3.6 - 10.7 10*3/uL [facility] CBC W/Diff, Automatedon 10-0 6-2024 Absolute Neut Normal 2.0-7.7 [facility] Comment on above: Order Comment: 108.2 Result Comment: [facility] Performed By: #### L 100.0100, [id number] #### [facility] [address] [place], [address] HCT Normal 40-54 [facility] Comment on above: Order Comment: 108.2 Performed By: #### L 100.0100 #### [facility] [address] [place], [address] Result Comment: [facility] Performed By: #### L 100.0100, [id number] #### [facility] [address] [place], [address] HGB Normal 13.0-16.5 [facility] Comment on above: Order Comment: 108.2 Performed By: #### L 100.0100 #### [facility] [address] [place], [address] Result Comment: [facility] Performed By: #### L 100.0100, [id number] #### [facility] [address] [place], [address] MCH Normal 27.0-32.0 [facility] Comment on above: Order Comment: 108.2 Performed By: #### L 100.0100 #### [facility] [address] [place], [address] Result Comment: [facility] Performed By: #### L 100.0100, [id number] #### [facility] [address] [place], [address] MCHC Normal 32-36 [facility] Comment on above: Order Comment: 108.2 Performed By: #### L 100.0100 #### [facility] [address] [place], [address] Result Comment: [facility] Performed By: #### L 100.0100, [id number] #### [facility] [address] [place], [address] MCV Normal 80-94 [facility] Comment on above: Order Comment: 108.2 Performed By: #### L 100.0100 #### [facility] [address] [place], [address] Result Comment: [facility] Performed By: #### L 100.0100, [id number] #### [facility] [address] [place], [address] NEUT% Normal 47-70 [facility] Comment on above: Order Comment: 108.2 Result Comment: [facility] Performed By: #### L 100.0100, [id number] #### [facility] [address] [place], [address] PLT Normal 150-450 [facility] Comment on above: Order Comment: 108.2 Performed By: #### L 100.0100 #### [facility] [address] [place], [address] Result Comment: [facility] Performed By: #### L 100.0100, [id number] #### [facility] [address] [place], [address] RBC Normal 4.6-6.2 [facility] Comment on above: Order Comment: 108.2 Performed By: #### L 100.0100 #### [facility] [address] [place], [address] Result Comment: [facility] Performed By: #### L 100.0100, [id number] #### [facility] [address] [place], [address] RDW CV Normal 11.6-14.6 [facility] Comment on above: Order Comment: 108.2 Performed By: #### L 100.0100 #### [facility] [address] [place], [address] Result Comment: [facility] Performed By: #### L 100.0100, [id number] #### [facility] [address] [place], [address] RDW SD Normal 35.1-43.9 [facility] Comment on above: Order Comment: 108.2 Performed By: #### L 100.0100 #### [facility] [address] [place], [address] Result Comment: [facility] Performed By: #### L 100.0100, [id number] #### [facility] [address] [place], [address] WBC Normal 4.4-11.0 [facility] Comment on above: Order Comment: 108.2 Performed By: #### L 100.0100 #### [facility] [address] [place], [address] Result Comment: [facility] Performed By: #### L 100.0100, L500.4050 #### [facility] [address] [place], [address] CBC WITH AUTO DIFFERENTIALon 06-07-2025 Basophils (Bld) [#/Vol] 0.1 10*3/uL Normal 0.0-0.2 [facility] Comment on above: Performed By: #### L [id number] ####Fire Operations Forester: MELI CARRILLO ([phone])[facility] (SBHLAB)[address] [place] [id number] [place] [address] Basophils/100 WBC (Bld) 1.0 % Normal 0.0-2.0 [facility] Comment on above: Performed By: #### L [id number] ####Fire Operations Forester: MELI CARRILLO ([phone])[facility] ([facility])[address] [place] [address] Eosinophils (Bld) [#/Vol] 0.3 10*3/uL Normal 0.0-0.5 [facility] Comment on above: Performed By: #### L [id number] ####Fire Operations Forester: MELI CARRILLO ([phone])[facility] ([facility])[address] Eosinophils/100 WBC (Bld) 5.4 % Normal 0.0-6.0 [facility] Comment on above: Performed By: #### L [id number] ####Fire Operations Forester: MELI PEREZMASSIEL ([phone])[facility] ([employer] [facility] [facility])[address] [place] [address] Erythrocyte distribution width (RBC) [Ratio] 13.1 % Normal 11.5-15.0 [facility] Comment on above: Performed By: #### L [id number] ####Fire Operations Forester: MELI CARRILLO ([phone])[facility] ([facility])[address] [place] [address] Hematocrit (Bld) [Volume fraction] 29.1 % Low 40.0-52.0 [facility] Comment on above: Performed By: #### L [id number] ####Fire Operations Forester: MELI CARRILLO ([phone])[facility] ([facility])[address] [place] [address] Hemoglobin (Bld) [Mass/Vol] 9.9 g/dL Low 13.0-18.0 [facility] Comment on above: Performed By: #### L [id number] ####Fire Operations Forester: MELI CARRILLO ([phone])[facility] ([facility])[address] IMMATURE GRANS % 0.8 % Normal 0.0-2.0 [facility] Comment on above: Performed By: #### L [id number] ####Fire Operations Forester: MELI LEEZoniaMASSIEL ([phone])[facility] CENTEREstefania VILLASENORTSAILE HEALTH CENTERShannon (SBHLAB)[address] IMMATURE GRANS ABSOLUTE 0.1 10*3/uL High <0.1 [facility] Comment on above: Performed By: #### L [id number] ####Fire Operations Forester: MELI GERARDO ([phone])[facility] CENTEREstefania [place] (SBAB)[address] Lymphocytes (Bld) [#/Vol] 0.6 10*3/uL Low 1.0-4.3 [facility] Comment on above: Performed By: #### L [id number] ####Fire Operations Forester: MELI GERARDO ([phone])[facility] ([facility])[address] [place] [address] Lymphocytes/100 WBC (Bld) 10.6 % Low 15.0-45.0 [facility] Comment on above: Performed By: #### L [id number] ####Fire Operations Forester: MELI PEREZMASSIEL ([phone])[facility]ENTEREstefania [place] ([facility])[address] [place] [address] MCH (RBC) [Entitic mass] 29.6 pg Normal 26.0-34.0 [facility] Comment on above: Performed By: #### L [id number] ####Fire Operations Forester: MELI PEREZMASSIEL ([phone])[facility] ([facility])[address] [place] [address] MCHC 34.0 % Normal 30.5-36.0 [facility] Comment on above: Performed By: #### L [id number] ####Fire Operations Forester: MELI CARRILLO ([phone])[facility] ([facility])[address] [place] [address] MCV (RBC) [Entitic vol] 87.1 fL Normal 77.0-99.0 [facility] Comment on above: Performed By: #### L [id number] ####Fire Operations Forester: MELIIVELISSE CARRILLO ([phone])[facility] [place] (SBHLAB)[address] Monocytes (Bld) [#/Vol] 0.5 10*3/uL Normal 0.0-0.9 [facility] Comment on above: Performed By: #### L [id number] ####Fire Operations Forester: MELIIVELISSE CARRILLO ([phone])[facility]ENTERA [place] (SBHLAB)[address] Monocytes/100 WBC (Bld) 8.6 % Normal 5.0-13.0 [facility] Comment on above: Performed By: #### L [id number] ####Fire Operations Forester: MELI CARRILLO ([phone])[facility]A [place] (SBHLAB)[address] NEUTROPHILS ABSOLUTE 4.4 10*3/uL Normal 1.8-7.5 [facility] Comment on above: Performed By: #### L [id number] ####Fire Operations Forester: MELIIVELISSE CARRILLO ([phone])[facility]A [place] (SBHLAB)[address] Neutrophils/100 WBC (Bld) 73.6 % Normal 38.0-82.0 [facility] Comment on above: Performed By: #### L [id number] ####Fire Operations Forester: MELI GERARDO ([phone])[facility]A [place] (SBHLAB)[address] NRBC 0.0 /100 WBCs Normal 0.0-2.0 [facility] Comment on above: Performed By: #### L [id number] ####Fire Operations Forester: MELI GERARDO ([phone])[facility]A [place] (SBHLAB)[address] Platelet mean volume (Bld) [Entitic vol] 9.9 fL Normal 9.0-12.7 [facility] Comment on above: Performed By: #### L [id number] ####Fire Operations Forester: MELI CARRILLO ([phone])[facility] [place] (SBHLAB)[address] Platelets (Bld) [#/Vol] 221 10*3/uL Normal 140-440 [facility] Comment on above: Performed By: #### L [id number] ####Fire Operations Forester: MELI CARRILLO ([phone])[facility]A [place] (SBHLAB)[address] RBC (Bld) [#/Vol] 3.34 10*6/uL Low 4.40-5.90 [facility] Comment on above: Performed By: #### L [id number] ####Fire Operations Forester: MELI TIDWELLCER ([phone])[facility]A [place] (SBHLAB)[address] WBC (Bld) [#/Vol] 5.9 10*3/uL Normal 3.6-10.7 [facility] Comment on above: Performed By: #### L [id number] ####Fire Operations Forester: MELI CARRILLO ([phone])[facility]A [place] (SBHLAB)[address] COMPREHENSIVE METABOLIC PANE Maciel 06-07-2025 Albumin [Mass/Vol] 2.7 g/dL Low 3.4-4.8 [facility] Comment on above: Performed By: #### L [id number] ####Fire Operations Forester: MELI CARRILLO ([phone])[facility]A [place] (SBHLAB)[address] ALP [Catalytic activity/Vol] 98 U/L Normal 40-150 [facility] Comment on above: Performed By: #### L [id number] ####Fire Operations Forester: MELI CARRILLO ([id number])[facility]A [place] (SBHLAB)[address] ALT [Catalytic activity/Vol] 71 U/L High <40 [facility] Comment on above: Performed By: #### L [id number] ####Fire Operations Forester: MELI CARRILLO ([phone])[facility] [place] (SBHLAB)[address] Anion gap [Moles/Vol] 7 mmol/L Normal 3-13 [facility] Comment on above: Performed By: #### L [id number] ####Fire Operations Forester: MELI CARRILLO ([phone])[facility]A [place] (SBHLAB)[address] AST [Catalytic activity/Vol] 28 U/L Normal <34 [facility] Comment on above: Performed By: #### L [id number] ####Fire Operations Forester: MELI CARRILLO ([phone])[facility]A [place] (SBHLAB)[address] Bilirubin [Mass/Vol] 0.3 mg/dL Normal <1.2 [facility] Comment on above: Performed By: #### L [id number] ####Fire Operations Forester: MELI CARRILLO ([phone])[facility]A [place] (SBHLAB)[address] Calcium [Mass/Vol] 8.9 mg/dL Normal 8.8-10.0 [facility] Comment on above: Performed By: #### L [id number] ####Fire Operations Forester: MELI CARRILLO ([phone])[facility]A [place] (SBHLAB)[address] [place] [address] [place] Chloride [Moles/Vol] 98 mmol/L Normal 98-107 [facility] Comment on above: Performed By: #### L [id number] ####Fire Operations Forester: MELI CARRILLO ([phone])[facility]A [place] (SBHLAB)[address] [place] [address] [place] CO2 [Moles/Vol] 26 mmol/L Normal 23-31 [facility] Comment on above: Performed By: #### L [id number] ####Fire Operations Forester: MELI CARRILLO ([phone])[facility]A [place] (SBHLAB)[address] Creatinine [Mass/Vol] 0.79 mg/dL Normal 0.72-1.25 [facility] Comment on above: Performed By: #### L [id number] ####Fire Operations Forester: MELI CARRILLO ([phone])[facility] (SBHLAB)[address] GLOMERULAR FILTRATION RATE ML/MIN/1.73 SQ M.PREDICTED >90.0 Normal >60.0 [facility] Comment on above: Result Comment: Calc ulation based on the Chronic Kidney Disease Epidemiology Collaboration (CKD-EPI) equation refit without adjustment for race Performed By: #### L [id number] ####Fire Operations Forester: MELI CARRILLO ([phone])[facility] ([facility])[address] Glucose [Mass/Vol] 104 mg/dL Normal 82-115 [facility] Comment on above: Performed By: #### L [id number] ####Fire Operations Forester: MELI CARRILLO ([phone])[facility] ([facility])[address] Potassium [Moles/Vol] 4.0 mmol/L Normal 3.5-5.1 [facility] Comment on above: Result Comment: [facility] potassium values may be up to 0.5 mmol/L lower than serum values. Performed By: #### L [id number] ####Fire Operations Forester: MELI CARRILLO ([id number])[facility] (SBHLAB)[address] Protein [Mass/Vol] 6.0 g/dL Low 6.4-8.3 [facility] Comment on above: Performed By: #### L [id number] ####Fire Operations Forester: MLEI CARRILLO ([phone])[facility] (HLAB)[address] Sodium [Moles/Vol] 131 mmol/L Low 136-145 [facility] Comment on above: Performed By: #### L [id number] ####Fire Operations Forester: MELI PEREZMASSIEL ([phone])[facility]ENTEREstefania VILLASENORTSAILE HEALTH CENTERShannon (SBHLAB)[address] [place], [place] [id number] [place] [address] Urea nitrogen [Mass/Vol] 26 mg/dL High 9- [facility] Comment on above: Performed By: #### L [id number] ####Fire Operations Forester: MELI CARRILLO ([phone])[facility]ENTEREstefania VILLASENORTSAILE HEALTH CENTERShannon (SBHLAB)[address] [place] [place] [id number] [place] [address] Comprehensive Metabolic Prof chaimsal 06-07-2025 ALB Normal 3.4-4.8 [facility] Comment on above: Order Comment: 108.2 Result Comment: [facility] Performed By: #### L 100.0100, L500.4050 #### [facility] [address] [place], [address] ALK PHOS Normal 40-129 [facility] Comment on above: Order Comment: 108.2 Result Comment: [facility] Performed By: #### L 100.0100, L500.4050 #### [facility] [address] [place], [address] ALT Normal <=46 [facility] Comment on above: Order Comment: 108.2 Result Comment: [facility] Performed By: #### L 100.0100, L500.4050 #### [facility] [address] [place], [address] AST Normal <=37 [facility] Comment on above: Order Comment: 108.2 Result Comment: [facility] Performed By: #### L 100.0100, L500.4050 #### [facility] [address] [place], [address] BUN Normal 4-19 [facility] Comment on above: Order Comment: 108.2 Result Comment: [facility] Performed By: #### L 100.0100, L500.4050 #### [facility] [address] [place], [address] BUN/CRE Normal 10-20 [facility] Comment on above: Order Comment: 108.2 Result Comment: [facility] Performed By: #### L 100.0100, L500.4050 #### [facility] [address] [place], [address] Calcium Normal 7.6-11.0 [facility] Comment on above: Order Comment: 108.2 Result Comment: [facility] Performed By: #### L 100.0100, L500.4050 #### [facility] [address] [place], [address] CL Normal 98-108 [facility] Comment on above: Order Comment: 108.2 Result Comment: [facility] Performed By: #### L 100.0100, L500.4050 #### [facility] [address] [place], [address] CO2 Normal 21.0-32.0 [facility] Comment on above: Order Comment: 108.2 Result Comment: [facility] Performed By: #### L 100.0100, L500.4050 #### [facility] [address] [place], [address] CREAT,SERUM Normal 0.70-1.20 [facility] Comment on above: Order Comment: 108.2 Result Comment: [facility] Performed By: #### L 100.0100, L500.4050 #### [facility] [address] [place], [address] eGFR Normal >60 [facility] Comment on above: Order Comment: 108.2 Result Comment: [facility] Performed By: #### L 100.0100, L500.4050 #### [facility] [address] [place], [address] GAP Normal 5-15 [facility] Comment on above: Order Comment: 108.2 Result Comment: [facility] Performed By: #### L 100.0100, L500.4050 #### [facility] [address] [place], [address] GLU Normal 70-99 [facility] Comment on above: Order Comment: 108.2 Result Comment: [facility] Performed By: #### L 100.0100, L500.4050 #### [facility] [address] [place], [address] Potassium Normal 3.3-5.1 [facility] Comment on above: Order Comment: 108.2 Result Comment: [facility] Performed By: #### L 100.0100, L500.4050 #### [facility] [address] [place], [address] T BILI Normal 0.00-1.30 [facility] Comment on above: Order Comment: 108.2 Result Comment: [facility] Performed By: #### L 100.0100, L500.4050 #### [facility] [address] [place], [address] T PROT Normal 5.9-8.4 [facility] Comment on above: Order Comment: 108.2 Result Comment: [facility] Performed By: #### L 100.0100, L500.4050 #### [facility] [address] [place], [address] Comprehensive Metabolic Profil Normal 133-145 [facility] Comment on above: Order Comment: 108.2 Result Comment: [facility] Performed By: #### L 100.0100, L500.4050 #### [facility] [address] [place], [address] Comprehensive metabolic 1998 panelon 06-07-2025 Albumin [Mass/Vol] 2.7 g/dL Low 3.4 - 4.8 g/dL [facility] [employer] ALP [Catalytic activity/Vol] 98 U/L 40 - 150 U/L [facility] ALT [Catalytic activity/Vol] 71 U/L High NINF - 40 U/L [facility] Anion gap [Moles/Vol] 7 mmol/L 3 - 13 mmol/L [facility] AST [Catalytic activity/Vol] 28 U/L NINF - 34 U/L [facility] Bilirubin [Mass/Vol] 0.3 mg/dL NINF - 1.2 mg/dL [facility] Calcium [Mass/Vol] 8.9 mg/dL 8.8 - 10. 0 mg/dL [facility] Chloride [Moles/Vol] 98 mmol/L 98 - 10 7 mmol/L [facility] CO2 [Moles/Vol] 26 mmol/L 23 - 31 mmol/L [facility] Creatinine [Mass/Vol] 0.79 mg/dL 0.72 - 1.25 mg/dL [facility] GFR/1.73 sq M.predicted (S/P/Bld) [Vol rate/Area] - PINF [facility] Glucose [Mass/Vol] 104 mg/dL 82 - 115 mg/dL [facility] Interpretation and review of laboratory results Abnormal [facility] Potassium [Moles/Vol] 4 mmol/L 3.5 - 5.1 mmol/L [facility] Protein [Mass/Vol] 6 g/dL Low 6.4 - 8.3 g/dL [facility] Sodium [Moles/Vol] 131 mmol/L Low 136 - 145 mmol/L [facility] Urea nitrogen [Mass/Vol] 26 mg/dL High 9 - 23 mg/dL [facility] Laboratory - Chemistry and C hemistry - challengeon 06-07-2025 Glucose [Mass/Vol] 166 mg/dL High 70 - 100 mg/dL [facility] Glucose [Mass/Vol] 207 mg/dL High 70 - 100 mg/dL [facility] Glucose [Mass/Vol] 91 mg/dL 70 - 100 mg/dL [facility] Glucose [Mass/Vol] 109 mg/dL High 70 - 100 mg/dL [facility] No Panel Informationon 06-07 Interpretation and review of laboratory results Abnormal [facility] Interpretation and review of laboratory results Abnormal [facility] Interpretation and review of laboratory results Normal [facility] Interpretation and review of laboratory results Abnormal [facility] Nursing Noteon 06-07-2025 Nursing Note Normal [facility] Progress Noteon 06-07-2025 Progress Note Normal [facility] Progress Note Normal [facility] Progress Note Normal [facility] Progress Note Normal [facility] Progress Note Normal [facility] Progress Note Normal [facility] CBC W Auto Differential pane l (Bld)Ordered By: Radha Wharton on 06-06-2025 Erythrocyte distribution width (RBC) [Ratio] 13.2 % 11.5 - 15.0 % [facility] Hematocrit (Bld) [Volume fraction] 33.8 % Low 40.0 - 52.0 % [facility] Hemoglobin (Bld) [Mass/Vol] 11.5 g/dL Low 13.0 - 18.0 g/dL [facility] Interpretation and review of laboratory results Abnormal [facility] MCH (RBC) [Entitic mass] 30.1 pg 26.0 - 34.0 pg [facility] MCHC (RBC) [Mass/Vol] 34 % 30.5 - 36.0 % [facility] MCV (RBC) [Entitic vol] 88.5 fL 77.0 - 99.0 fL [facility] Platelet mean volume (Bld) [Entitic vol] 9.6 fL 9.0 - 12.7 fL [facility] Platelets (Bld) [#/Vol] 236 10*3/uL 140 - 440 10*3/uL [facility] RBC (Bld) [#/Vol] 3.82 10*6/uL Low 4.40 - 5.9 0 10*6/uL [facility] WBC (Bld) [#/Vol] 7.1 10*3/uL 3.6 - 10.7 10*3/uL [facility] CBC WITH AUTO DIFFERENTIALon 06-06-2025 Erythrocyte distribution width (RBC) [Ratio] 13.2 % Normal 11.5-15.0 [facility] Comment on above: Performed By: #### L [id number], [id number] ####Fire Operations Forester: MELI CARRILLO ([phone])[facility] ([facility])[address] [place] [address] Hematocrit (Bld) [Volume fraction] 33.8 % Low 40.0-52.0 [facility] Comment on above: Performed By: #### L [id number], [id number] ####Fire Operations Forester: MELI CARRILLO ([phone])[facility] CENTEREstefania VILLASENORBERNADETTE (SBHLAB)[address] Hemoglobin (Bld) [Mass/Vol] 11.5 g/dL Low 13.0-18.0 [facility] Comment on above: Performed By: #### L [id number], [id number] ####Fire Operations Forester: MELI CARRILLO ([id number])[facility] CENTEREstefania VILLASENORBERNADETTE (SBHLAB)[address] MCH (RBC) [Entitic mass] 30.1 pg Normal 26.0-34.0 [facility] Comment on above: Performed By: #### L [id number], [id number] ####Fire Operations Forester: MELI CARRILLO ([phone])[facility]ENTEREstefania VILLASENORTSAILE HEALTH CENTERShannon (SBHLAB)[address] MCHC 34.0 % Normal 30.5-36.0 [facility] Comment on above: Performed By: #### L [id number], [id number] ####Fire Operations Forester: MELI CARRILLO ([phone])[facility]ENTEREstefania VILLASENORTSAILE HEALTH CENTERShannon (SBHLAB)[address] MCV (RBC) [Entitic vol] 88.5 fL Normal 77.0-99.0 [facility] Comment on above: Performed By: #### L [id number], [id number] ####Fire Operations Forester: MELI CARRILLO ([phone])[facility]ENTEREstefania VILLASENORTSAILE HEALTH CENTERShannon (SBHLAB)[address] Platelet mean volume (Bld) [Entitic vol] 9.6 fL Normal 9.0-12.7 [facility] Comment on above: Performed By: #### L [id number], [id number] ####Fire Operations Forester: MELI CARRILLO ([id number])[facility]ENTEREstefania VILLASENORTSAILE HEALTH CENTERShannon (SBHLAB)[address] Platelets (Bld) [#/Vol] 236 10*3/uL Normal 140-440 [facility] Comment on above: Performed By: #### L [id number], [id number] ####Fire Operations Forester: MELI CARRILLO ([phone])[facility]A [place] (SBHLAB)[address] RBC (Bld) [#/Vol] 3.82 10*6/uL Low 4.40-5.90 [facility] Comment on above: Performed By: #### L [id number], [id number] ####Fire Operations Forester: MELI CARRILLO ([phone])[facility]A LYNDSAYTSAILE HEALTH CENTERN (SBHLAB)[address] WBC (Bld) [#/Vol] 7.1 10*3/uL Normal 3.6-10.7 [facility] Comment on above: Performed By: #### L [id number], [id number] ####Fire Operations Forester: MELI CARRILLO ([phone])[facility] CENTEREstefania VILLASENORREUNION REHABILITATION [facility] PE[facility] (SBHLAB)[address] COMPREHENSIVE METABOLIC PANE Maciel 06-06-2025 Albumin [Mass/Vol] 3.0 g/dL Low 3.4-4.8 [facility] Comment on above: Performed By: #### L AB67, [id number], LAB68, LAB17 ####Fire Operations Forester: MELI CARRILLO ([phone])[facility]ENTERA BARBTSAILE HEALTH CENTERN (SBHLAB)[address] ALP [Catalytic activity/Vol] 105 U/L Normal 40-150 [facility] Comment on above: Performed By: #### L AB67, [id number], LAB68, LAB17 ####Fire Operations Forester: MELI CARRILLO ([phone])[facility]A BARBTSAILE HEALTH CENTERN (SBHLAB)[address] ALT [Catalytic activity/Vol] 103 U/L High <40 [facility] Comment on above: Performed By: #### L AB67, [id number], LAB68, LAB17 ####Fire Operations Forester: MELI CARRILLO ([id number])[facility] [place] (SBHLAB)[address] Anion gap [Moles/Vol] 13 mmol/L Normal 3-13 [facility] Comment on above: Performed By: #### L AB67, [id number], LAB68, LAB17 ####Fire Operations Forester: MELI CARRILLO ([phone])[facility] [place] (SBHLAB)[address] AST [Catalytic activity/Vol] 40 U/L High <34 [facility] Comment on above: Performed By: #### L AB67, [id number], LAB68, LAB17 ####Fire Operations Forester: MELI CARRILLO ([phone])[facility]A [facility]BT[facility] CENTERN (SBHLAB)[address] Bilirubin [Mass/Vol] 0.3 mg/dL Normal <1.2 [facility] Comment on above: Performed By: #### L AB67, [id number], LAB68, LAB17 ####Fire Operations Forester: MELI CARRILLO ([phone])[facility]A [facility]BT[facility] CENTERN (SBHLAB)[address] Calcium [Mass/Vol] 9.2 mg/dL Normal 8.8-10.0 [facility] Comment on above: Performed By: #### L AB67, [id number], LAB68, LAB17 ####Fire Operations Forester: MELI CARRILLO ([id number])[facility]A [place] (SBHLAB)[address] [place] [address] [place] Chloride [Moles/Vol] 95 mmol/L Low 98-107 [facility] Comment on above: Performed By: #### L AB67, [id number], LAB68, LAB17 ####Fire Operations Forester: MELI CARRILLO ([phone])[facility]A [place] (SBHLAB)[address] [place] [address] [place] CO2 [Moles/Vol] 21 mmol/L Low 23-31 [facility] Comment on above: Performed By: #### L AB67, [id number], LAB68, LAB17 ####Fire Operations Forester: MELI CARRILLO ([phone])[facility] CENTEREstefania VILLASENORTSAILE HEALTH CENTERShannon (SBHLAB)[address] Creatinine [Mass/Vol] 0.92 mg/dL Normal 0.72-1.25 [facility] Comment on above: Performed By: #### L AB67, [id number], LAB68, LAB17 ####Fire Operations Forester: MELI CARRILLO ([phone])[facility] CENTEREstefania [place] (SBHLAB)[address] GLOMERULAR FILTRATION RATE ML/MIN/1.73 SQ M.PREDICTED 90.0 mL/min/1.73m*2 Normal >60.0 [facility] Comment on above: Result Comment: Calc ulation based on the Chronic Kidney Disease Epidemiology Collaboration (CKD-EPI) equation refit without adjustment for race Performed By: #### L AB67, [id number], LAB68, LAB17 ####Fire Operations Forester: MELI CARRILLO ([phone])[facility] CENTEREstefania [place] (SBHLAB)[address] Glucose [Mass/Vol] 178 mg/dL High 82-115 [facility] Comment on above: Performed By: #### L AB67, [id number], LAB68, LAB17 ####Fire Operations Forester: MELI CARRILLO ([phone])[facility]ENTEREstefania VILLASENORREUNION REHABILITATION [facility]OSP[facility] [place] (SBHLAB)[address] Potassium [Moles/Vol] 5.0 mmol/L Normal 3.5-5.1 [facility] Comment on above: Result Comment: [facility] potassium values may be up to 0.5 mmol/L lower than serum values. Performed By: #### L AB67, [id number], LAB68, LAB17 ####Fire Operations Forester: MELI CARRILLO ([phone])[facility] (SBHLAB)[address] Protein [Mass/Vol] 6.9 g/dL Normal 6.4-8.3 [facility] Comment on above: Performed By: #### L AB67, [id number], LAB68, LAB17 ####Fire Operations Forester: MELI GERARDO ([phone])[facility]OR[facility] (SB[facility]AB)[address] Sodium [Moles/Vol] 129 mmol/L Low 136-145 [facility] Comment on above: Performed By: #### L AB67, [id number], LAB68, LAB17 ####Fire Operations Forester: MELI LEEZoniaMASSIEL ([phone])[facility] ([facility])[address] Urea nitrogen [Mass/Vol] 29 mg/dL High 9-23 [facility] Comment on above: Performed By: #### L [id number], [id number], [id number], [id number] ####Fire Operations Forester: MELI PEREZMASSIEL ([phone])[facility] ([facility])[address] Cobalamin (Vitamin B12) [Mas s/Vol]on 06-06-2025 Interpretation and review of laboratory results Normal [facility] Comprehensive metabolic 1998 panelon 06-06-2025 Albumin [Mass/Vol] 3 g/dL Low 3.4 - 4.8 g/dL [facility] ALP [Catalytic activity/Vol] 105 U/L 40 - 150 U/L [facility] ALT [Catalytic activity/Vol] 103 U/L High NINF - 40 U/L [facility] Anion gap [Moles/Vol] 13 mmol/L 3 - 13 mmol/L [facility] AST [Catalytic activity/Vol] 40 U/L High NINF - 34 U/L [facility] Bilirubin [Mass/Vol] 0.3 mg/dL NINF - 1.2 mg/dL [facility] Calcium [Mass/Vol] 9.2 mg/dL 8.8 - 10. 0 mg/dL [facility] Chloride [Moles/Vol] 95 mmol/L Low 98 - 10 7 mmol/L [facility] CO2 [Moles/Vol] 21 mmol/L Low 23 - 31 mmol/L [facility] Creatinine [Mass/Vol] 0.92 mg/dL 0.72 - 1.25 mg/dL [facility] GFR/1.73 sq M.predicted (S/P/Bld) [Vol rate/Area] 90 mL/min - PINF [facility] Glucose [Mass/Vol] 178 mg/dL High 82 - 115 mg/dL [facility] Interpretation and review of laboratory results Abnormal [facility] Potassium [Moles/Vol] 5 mmol/L 3.5 - 5.1 mmol/L [facility] Protein [Mass/Vol] 6.9 g/dL 6.4 - 8.3 g/dL [facility] Sodium [Moles/Vol] 129 mmol/L Low 136 - 145 mmol/L [facility] Urea nitrogen [Mass/Vol] 29 mg/dL High 9 - 23 mg/dL [facility] ECG 12-LEADon 06-06-2025 ECG 12-LEAD IMPRESSION: Atrial fibrillation Ventricular premature complex LEFT BUNDLE BRANCH BLOCK Electronically Signed On 06-06-2025 19:30:24 EDT by Selena Sweeney Normal [facility] FERRITINon 06-06-2025 Ferritin [Mass/Vol] 633 ng/mL High 22-275 [facility] Comment on above: Result Comment: ANUPAM Alonso COMMENTS:Ferritin levels below 10 ng/mL have been reported as indicative of iron deficiency anemia. Performed By: #### L [id number], [id number], [id number], LAB17 ####Fire Operations Forester: MELI CARRILLO ([phone])[facility] ([employer] [facility])[address] [place] [address] IRON AND TIBCon 06-06-2025 IRON BINDING CAPACITY 200 ug/dL Low 250-450 [facility] Comment on above: Performed By: #### L [id number] ####Fire Operations Forester: MELI CARRILLO ([phone])[facility] ([employer] [facility] [facility])[address] IRON SATURATION 37.0 % Normal 20.0-50.0 [facility] Comment on above: Performed By: #### L [id number] ####Fire Operations Forester: MELI CARRILLO ([phone])[facility] ([facility])[address] IRON, TOTAL 74 ug/dL Normal 65-175 [facility] Comment on above: Performed By: #### L [id number] ####Fire Operations Forester: MELI CARRILLO ([phone])[facility] [place] ([facility])[address] Iron and Iron binding capaci ty panelon 06-06-2025 Interpretation and review of laboratory results Abnormal [facility] Iron [Mass/Vol] 74 ug/dL 65 - 175 ug/dL [facility] Iron binding capacity [Mass/Vol] 200 ug/dL Low 250 - 450 ug/dL [facility] Iron saturation [Mass fraction] 37 % 20.0 - 50.0 % [facility] Laboratory - Chemistry and C hemistry - challengeon 06-06-2025 Glucose [Mass/Vol] 198 mg/dL High 70 - 100 mg/dL [facility] Glucose [Mass/Vol] 98 mg/dL 70 - 100 mg/dL [facility] Glucose [Mass/Vol] 227 mg/dL High 70 - 100 mg/dL [facility] Glucose [Mass/Vol] 299 mg/dL High 70 - 100 mg/dL [facility] Cobalamin (Vitamin B12) [Mass/Vol] 598 pg/mL 213 - 816 pg/mL [facility] Ferritin [Mass/Vol] 633 ng/mL High 22 - 275 ng/mL [facility] Procalcitonin [Mass/Vol] 0.35 ng/mL [facility] Laboratory - Drug toxicology on 06-06-2025 Vancomycin [Mass/Vol] 27.4 ug/mL [facility] Laboratory - Hematology and Cell countson 06-06-2025 Band form neutrophils (Bld) [#/Vol] 0.4 10*3/uL High NINF - 0.0 10*3/uL [facility] Band form neutrophils/100 WBC (Bld) 5 % High NINF - 0 % [facility] Basophils (Bld) [#/Vol] 0.1 10*3/uL 0.0 - 0.2 10*3/uL [facility] Basophils/100 WBC (Bld) 1 % 0 - 2 % [facility] Tracy cells LM Ql (Bld) Marked Abnormal (none) [facility] Eosinophils (Bld) [#/Vol] 0.1 10*3/uL 0.0 - 0.5 10*3/uL [facility] Eosinophils/100 WBC (Bld) 1 % 0 - 6 % [facility] Lymphocytes (Bld) [#/Vol] 0.4 10*3/uL Low 1.0 - 4.3 10*3/uL [facility] Lymphocytes/100 WBC (Bld) 5 % Low 15 - 45 % [facility] Monocytes (Bld) [#/Vol] 0 10*3/uL 0.0 - 0.9 10*3/uL [facility] Monocytes/100 WBC (Bld) 0 % Low 5 - 13 % [facility] Neutrophils (Bld) [#/Vol] 6.6 10*3/uL 1.8 - 7.5 10*3/uL [facility] Poikilocytosis LM Ql (Bld) Moderate Abnormal (none) [facility] RBC morphology finding Nom (Bld) abnormal [facility] Segmented neutrophils/100 WBC (Bld) 88 % High 38 - 82 % [facility] MANUAL DIFFERENTIAL (CELLAVI WESTON)on 06-06-2025 BAND NEUTROPHILS TOTAL PER COUNTED LEUKOCYTES BY MANUAL COUNT 5 Normal [facility] Comment on above: Performed By: #### Araseli [id number], [id number] ####Fire Operations Forester: MELI CARRILLO ([phone])[facility] ([facility])[address] BANDS (10*3/UL) IN BLOOD-CELLAVISION 0.4 10*3/uL High <=0.0 [facility] Comment on above: Performed By: #### Araseli [id number], [id number] ####Fire Operations Forester: MELI CARRILLO ([phone])[facility] ([facility])[address] [place] [address] [place] BASOPHILS (10*3/UL) IN BLOOD-CELLAVISION 0.1 10*3/uL Normal 0.0-0.2 [facility] Comment on above: Performed By: #### L [id number], [id number] ####Fire Operations Forester: MELI [phone])[facility] ([facility])[address] [place] [address] [place] BASOPHILS TOTAL PER COUNTED LEUKOCYTES BY MANUAL COUNT 1 Normal [facility] Comment on above: Performed By: #### L [id number], [id number] ####Fire Operations Forester: MELI CARRILLO ([phone])[facility] [place] ([facility])[address] [place] [address] [place] BASOPHILS/100 LEUKOCYTES IN BLOOD-CELLAVISION 1 % Normal 0-2 [facility] Comment on above: Performed By: #### L [id number], [id number] ####Fire Operations Forester: MELI CARRILLO ([phone])[facility] [place] ([facility])[address] BLASTS TOTAL PER COUNTED LEUKOCYTES BY MANUAL COUNT Normal [facility] Comment on above: Performed By: #### L [id number], [id number] ####Fire Operations Forester: MELI CARRILLO ([id number])[facility] [place] ([facility])[address] [place] [address] [place] TRACY CELLS PRESENCE IN BLOOD BY LIGHT MICROSCOPY Marked Abnormal (none) [facility] Comment on above: Performed By: #### L [id number], [id number] ####Fire Operations Forester: MELI CARRILLO ([phone])[facility] [place] ([facility])[address] [place] [address] [place] EOSINOPHILS (10*3/UL) IN BLOOD-CELLAVISION 0.1 10*3/uL Normal 0.0-0.5 [facility] Comment on above: Performed By: #### L [id number], [id number] ####Fire Operations Forester: MELI CARRILLO ([phone])[facility] [place] ([facility])[address] [place] [address] [place] EOSINOPHILS TOTAL PER COUNTED LEUKOCYTES BY MANUAL COUNT 1 Normal 0-1 [facility] Comment on above: Performed By: #### L [id number], [id number] ####Fire Operations Forester: MELI CARRILLO ([phone])[facility] ([facility])[address] [place] [address] [place] EOSINOPHILS/100 LEUKOCYTES IN BLOOD-CELLAVISION 1 % Normal 0-6 [facility] Comment on above: Performed By: #### L [id number], [id number] ####Fire Operations Forester: MLEI CARRILLO ([id number])[facility] ([facility])[address] [place] [address] [place] LYMPHOCYTES (10*3/UL) IN BLOOD-CELLAVISION 0.4 10*3/uL Low 1.0-4.3 [facility] Comment on above: Performed By: #### L [id number], [id number] ####Fire Operations Forester: MELI CARRILLO ([phone])[facility] ([facility])[address] LYMPHOCYTES TOTAL PER COUNTED LEUKOCYTES BY MANUAL COUNT Normal [facility] Comment on above: Performed By: #### L [id number], [id number] ####Fire Operations Forester: MELI CARRILLO ([id number])[facility] [place] ([facility])[address] [place] [address] [place] LYMPHOCYTES/100 LEUKOCYTES IN BLOOD-CELLAVISION 5 % Low 15-45 [facility] Comment on above: Performed By: #### L [id number], [id number] ####Fire Operations Forester: MELI CARRILLO ([phone])[facility] [place] ([facility])[address] [place] [address] [place] METAMYELOCYTES TOTAL PER COUNTED LEUKOCYTES BY MANUAL COUNT [facility] Comment on above: Performed By: #### L [id number], [id number] ####Fire Operations Forester: MELI CARRILLO ([phone])[facility] [place] ([facility])[address] [place] [address] [place] MONOCYTES (10*3/UL) IN BLOOD-CELLAVISION 0.0 10*3/uL Normal 0.0-0.9 [facility] Comment on above: Performed By: #### L [id number], [id number] ####Fire Operations Forester: MELI CARRILLO ([phone])[facility] ([facility])[address] [place] [address] [place] MONOCYTES TOTAL PER COUNTED LEUKOCYTES BY MANUAL COUNT 0 Normal [facility] Comment on above: Performed By: #### L [id number], [id number] ####Fire Operations Forester: MELI TIDWELLCER ([phone])[facility] ([facility])[address] [place] [address] [place] MONOCYTES/100 LEUKOCYTES IN BLOOD-RIGOBERTO 0 % Low 5-13 [facility] Comment on above: Performed By: #### L [id number], [id number] ####Fire Operations Forester: MELI CARRILLO ([phone])[facility] [place] ([facility])[address] [place] [address] [place] MYELOCYTES COUNTED BY MANUAL COUNT Normal [facility] Comment on above: Performed By: #### L [id number], [id number] ####Fire Operations Forester: MELI CARRILLO ([phone])[facility] [place] ([facility])[address] [place] [address] [place] NEUTROPHILS BAND FORM/100 LEUKOCYTES IN BLOOD-CELLAVISI 5 % High <=0 [facility] Comment on above: Performed By: #### L [id number], [id number] ####Fire Operations Forester: MELI CARRILLO ([phone])[facility] [place] ([facility])[address] [place] [address] [place] NEUTROPHILS TOTAL PER COUNTED LEUKOCYTES BY MANUAL COUNT 89 Normal [facility] Comment on above: Performed By: #### L [id number], [id number] ####Fire Operations Forester: MELI CARRILLO ([phone])[facility] [place] ([facility])[address] [place] [address] [place] POIKILOCYTOSIS (PRESENCE) IN BLOOD BY LIGHT MICROSCOPY Moderate Abnormal (none) [facility] Comment on above: Performed By: #### L [id number], [id number] ####Fire Operations Forester: MELI CARRILLO ([id number])[facility] ([facility])[address] [place] [address] [place] PROMYELOCYTES TOTAL PER COUNTED LEUKOCYTES BY MANUAL COUNT Normal [facility] Comment on above: Performed By: #### L [id number], [id number] ####Fire Operations Forester: MELI CARRILLO ([id number])[facility] ([facility])[address] [place] [address] [place] RBC MORPHOLOGY IN BLOOD abnormal Normal [facility] Comment on above: Performed By: #### L [id number], [id number] ####Fire Operations Forester: MELI CARRILLO ([phone])[facility] [place] ([facility])[address] SEGMENTED NEUTROPHILS (10*3/UL) IN BLOOD-CELLAVISION 6.6 10*3/uL Normal 1.8-7.5 [facility] Comment on above: Performed By: #### L [id number], [id number] ####Fire Operations Forester: MELI CARRILLO ([phone])[facility] ([facility])[address] [place] [address] [place] SEGMENTED NEUTROPHILS/100 LEUKOCYTES-CE 88 % High 38-82 [facility] Comment on above: Performed By: #### L [id number], [id number] ####Fire Operations Forester: MELI CARRILLO ([phone])[facility] ([facility])[address] [place] [address] [place] UNCLASSIFIED CELLS TOTAL PER COUNTED LEUKOCYTES BY MANUAL COUNT [facility] Comment on above: Performed By: #### L [id number], [id number] ####Fire Operations Forester: MELI CARRILLO ([phone])[facility] [place] ([facility])[address] [place] [address] [place] VARIANT LYMPHOCYTES TOTAL PER COUNTED LEUKOCYTES BY MANUAL COUNT [facility] Comment on above: Performed By: #### L [id number], [id number] ####Fire Operations Forester: MELI CARRILLO ([id number])[facility] ([facility])[address] No Panel Informationon 06-06 Interpretation and review of laboratory results Abnormal [facility] P [place] 0 degrees [facility] VA Interval 0 ms [facility] QRS [place] -54 degrees [facility] QRSD Interval 179 ms [facility] QT Interval 480 ms [facility] QTC Interval 528 ms [facility] T Wave [place] 123 degrees [facility] CV EPIPHANY [facility] Interpretation and review of laboratory results Normal [facility] Interpretation and review of laboratory results Abnormal [facility] Interpretation and review of laboratory results Abnormal [facility] Interpretation and review of laboratory results Abnormal [facility] Bands Manual 5 [facility] Basophils Manual 1 [facility] Eosinophils Manual 1 0 - 1 [facility] Interpretation and review of laboratory results Abnormal [facility] Lymphocytes Manual 5 [facility] Monocytes Manual 0 [facility] Neutrophils Manual 89 [facility] Nursing Noteon 06-06-2025 Nursing Note Normal [facility] PROCALCITONIN TESTon 025 PROCALCITONIN 0.35 ng/mL High <0.07 [facility] Comment on above: Result Comment: ORDE R COMMENTS:PCT <0.50 = Low risk of severe sepsis and/or septic shock.PCT >2.00 = High risk of severe sepsis and/or septic shock. Performed By: #### L [id number], [id number], LAB68, LAB17 ####Fire Operations Forester: MELI CARRILLO ([id number])[facility] LYNDSAYBERNADETTE (SBAB)[address] Progress Noteon 06-06-2025 Progress Note Normal [facility] Progress Note Normal [facility] Progress Note Normal [facility] Progress Note Normal [facility] Progress Note Normal [facility] Progress Note Normal [facility] VANCOMYCIN, RANDOMon 025 VANCOMYCIN 27.4 ug/mL Normal [facility] Comment on above: Result Comment: ORDE R COMMENTS:Ok to draw with morning labs. Please draw at least 2 hours after Vancomycin infusion has stopped.Toxicity is seen at concentrations >80-100 ug/mLTherapeutic (Peak) range: 20-40Therapeutic (Trough) range: 5-10 Performed By: #### L [id number] ####Fire Operations Forester: MELI CARRILLO ([phone])[facility]YNDSAYRE[facility] ([facility])[address] VITAMIN B12on 06-06-2025 Cobalamin (Vitamin B12) [Mass/Vol] 598 pg/mL Normal 213-816 [facility] Comment on above: Performed By: #### L [id number], [id number], LAB68, LAB17 ####Fire Operations Forester: MELI CARRILLO ([phone])[facility] LYNDSAYREUN[facility] ([facility])[address] Vital signson 06-06-2025 Heart rate 73 /min bpm [facility] CBC W Auto Differential pane l (Bld)Ordered By: Lee Dubose on 06-05-2025 Erythrocyte distribution width (RBC) [Ratio] 13.2 % 11.5 - 15.0 % [facility] Hematocrit (Bld) [Volume fraction] 33.4 % Low 40.0 - 52.0 % [facility] Hemoglobin (Bld) [Mass/Vol] 11.2 g/dL Low 13.0 - 18.0 g/dL [facility] MCH (RBC) [Entitic mass] 29.6 pg 26.0 - 34.0 pg [facility] MCHC (RBC) [Mass/Vol] 33.5 % 30.5 - 36.0 % [facility] [facility] MCV (RBC) [Entitic vol] 88.4 fL 77.0 - 99.0 fL [facility] [facility] Platelet mean volume (Bld) [Entitic vol] 9.5 fL 9.0 - 12.7 fL [facility] [facility] [employer] [facility] Platelets (Bld) [#/Vol] 259 10*3/uL 140 - 440 10*3/uL [facility] RBC (Bld) [#/Vol] 3.78 10*6/uL Low 4.40 - 5.9 0 10*6/uL [facility] WBC (Bld) [#/Vol] 7.1 10*3/uL 3.6 - 10.7 10*3/uL [facility] [facility] CBC WITH AUTO DIFFERENTIALon 06-05-2025 Erythrocyte distribution width (RBC) [Ratio] 13.2 % Normal 11.5-15.0 [facility] Comment on above: Performed By: #### L [id number], [id number] ####Fire Operations Forester: MELI CARRILLO ([phone])[facility]ENTEREstefania [facility]ENTERSh[facility] ([facility])[address] [place] [address] Hematocrit (Bld) [Volume fraction] 33.4 % Low 40.0-52.0 [facility] Comment on above: Performed By: #### L [id number], [id number] ####Fire Operations Forester: MELI CARRILLO ([phone])[facility] ([facility])[address] [place] [address] Hemoglobin (Bld) [Mass/Vol] 11.2 g/dL Low 13.0-18.0 [facility] Comment on above: Performed By: #### L [id number], [id number] ####Fire Operations Forester: MELI CARRILLO ([phone])[facility] ([facility])[address] [place] [address] MCH (RBC) [Entitic mass] 29.6 pg Normal 26.0-34.0 [facility] Comment on above: Performed By: #### L [id number], [id number] ####Fire Operations Forester: MELI CARRILLO ([id number])[facility] ([facility])[address] MCHC 33.5 % Normal 30.5-36.0 [facility] Comment on above: Performed By: #### L [id number], [id number] ####Fire Operations Forester: MELI CARRILLO ([phone])[facility] ([facility])[address] MCV (RBC) [Entitic vol] 88.4 fL Normal 77.0-99.0 [facility] Comment on above: Performed By: #### L [id number], [id number] ####Fire Operations Forester: MELI CARRILLO ([id number])[facility]ALIE OROPEZAShannon ([facility])[address] Platelet mean volume (Bld) [Entitic vol] 9.5 fL Normal 9.0-12.7 [facility] Comment on above: Performed By: #### L [id number], [id number] ####Fire Operations Forester: MELI CARRILLO ([phone])[facility]ENTEREstefania [facility]ENORTSA[facility]ERN ([facility])[address] Platelets (Bld) [#/Vol] 259 10*3/uL Normal 140-440 [facility] Comment on above: Performed By: #### L [id number], [id number] ####Fire Operations Forester: MELI CARRILLO ([phone])[facility]ENTEREstefania VILLASENORREUN[facility] RE[facility] ([facility])[address] RBC (Bld) [#/Vol] 3.78 10*6/uL Low 4.40-5.90 [facility] Comment on above: Performed By: #### L [id number], [id number] ####Fire Operations Forester: MELI CARRILLO ([phone])[facility] CENTEREstefania [place] (SB[facility])[address] [place] [address] WBC (Bld) [#/Vol] 7.1 10*3/uL Normal 3.6-10.7 [facility] Comment on above: Performed By: #### L [id number], [id number] ####Fire Operations Forester: MELI CARRILLO ([phone])[facility]EREstefania VILLASENORTSAILE HEALTH CENTERN ([facility])[address] COMPREHENSIVE METABOLIC PANE Maciel 06-05-2025 Albumin [Mass/Vol] 2.9 g/dL Low 3.4-4.8 [facility] Comment on above: Performed By: #### L [id number], [id number] ####Fire Operations Forester: MELI CARRILLO ([phone])[facility] CENTEREstefania [place] ([facility])[address] ALP [Catalytic activity/Vol] 91 U/L Normal 40-150 [facility] Comment on above: Performed By: #### L [id number], LAB17 ####Fire Operations Forester: MELI CARRILLO ([id number])[facility] [place] ([facility])[address] ALT [Catalytic activity/Vol] 118 U/L High <40 [facility] Comment on above: Performed By: #### L [id number], LAB17 ####Fire Operations Forester: MELI CARRILLO ([phone])[facility] [place] ([facility])[address] Anion gap [Moles/Vol] 12 mmol/L Normal 3-13 [facility] Comment on above: Performed By: #### L [id number], LAB17 ####Fire Operations Forester: MELI CARRILLO ([phone])[facility]A [facility] (SB[facility])[address] AST [Catalytic activity/Vol] 53 U/L High <34 [facility] Comment on above: Performed By: #### L [id number], LAB17 ####Fire Operations Forester: MELI CARRILLO ([id number])[facility] [place] ([facility])[address] Bilirubin [Mass/Vol] 0.3 mg/dL Normal <1.2 [facility] Comment on above: Performed By: #### L [id number], LAB17 ####Fire Operations Forester: MELI CARRILLO ([id number])[facility] [place] ([facility])[address] Calcium [Mass/Vol] 9.1 mg/dL Normal 8.8-10.0 [facility] Comment on above: Performed By: #### L [id number], LAB17 ####Fire Operations Forester: MELI CARRILLO ([phone])[facility] [place] ([facility])[address] Chloride [Moles/Vol] 97 mmol/L Low 98-107 [facility] Comment on above: Performed By: #### L [id number], LAB17 ####Fire Operations Forester: MELI CARRILLO ([phone])[facility] [place] ([facility])[address] CO2 [Moles/Vol] 23 mmol/L Normal 23-31 [facility] Comment on above: Performed By: #### L [id number], LAB17 ####Fire Operations Forester: MELI CARRILLO ([id number])[facility]ENTERA BARBTSAILE HEALTH CENTERN ([facility])[address] Creatinine [Mass/Vol] 1.08 mg/dL Normal 0.72-1.25 [facility] Comment on above: Performed By: #### L AB103, LAB17 ####Fire Operations Forester: MELI CARRILLO ([phone])[facility]A [facility] (SB[facility])[address] [place] [address] [place] GLOMERULAR FILTRATION RATE ML/MIN/1.73 SQ M.PREDICTED 74.3 mL/min/1.73m*2 Normal >60.0 [facility] Comment on above: Result Comment: Calc ulation based on the Chronic Kidney Disease Epidemiology Collaboration (CKD-EPI) equation refit without adjustment for race Performed By: #### L AB103, LAB17 ####Fire Operations Forester: MELI CARRILLO ([phone])[facility]A [facility] ([facility])[address] [place] [address] [place] Glucose [Mass/Vol] 180 mg/dL High 82-115 [facility] Comment on above: Performed By: #### L [id number], LAB17 ####Fire Operations Forester: MELI CARRILLO ([phone])[facility] (SBHLAB)[address] [place] [address] [place] Potassium [Moles/Vol] 4.6 mmol/L Normal 3.5-5.1 [facility] Comment on above: Result Comment: [facility] potassium values may be up to 0.5 mmol/L lower than serum values. Performed By: #### L AB103, LAB17 ####Fire Operations Forester: MELI CARRILLO ([phone])[facility] T[facility]OR[facility] (SBHLAB)[address] Protein [Mass/Vol] 6.8 g/dL Normal 6.4-8.3 [facility] Comment on above: Performed By: #### L AB103, LAB17 ####Fire Operations Forester: MELI CARRILLO ([phone])[facility]EREstefania VILLASENORTSAILE HEALTH CENTERShannon (SBHLAB)[address] Sodium [Moles/Vol] 132 mmol/L Low 136-145 [facility] Comment on above: Performed By: #### L [id number], [id number] ####Fire Operations Forester: MELI CARRILLO ([phone])[facility] CENTEREstefania VILLASENORTSAILE HEALTH CENTERShannon (SBHLAB)[address] Urea nitrogen [Mass/Vol] 30 mg/dL High 9-23 [facility] Comment on above: Performed By: #### L [id number], [id number] ####Fire Operations Forester: MELI CARRILLO ([phone])[facility]ENTEREstefania VILLASENORREUNION [facility] [place] (SBHLAB)[address] Comprehensive metabolic 1998 panelon 06-05-2025 Albumin [Mass/Vol] 2.9 g/dL Low 3.4 - 4.8 g/dL [facility] ALP [Catalytic activity/Vol] 91 U/L 40 - 150 U/L [facility] ALT [Catalytic activity/Vol] 118 U/L High NINF - 40 U/L [facility] Anion gap [Moles/Vol] 12 mmol/L 3 - 13 mmol/L [facility] AST [Catalytic activity/Vol] 53 U/L High NINF - 34 U/L [facility] Bilirubin [Mass/Vol] 0.3 mg/dL NINF - 1.2 mg/dL [facility] Calcium [Mass/Vol] 9.1 mg/dL 8.8 - 10. 0 mg/dL [facility] Chloride [Moles/Vol] 97 mmol/L Low 98 - 10 7 mmol/L [facility] CO2 [Moles/Vol] 23 mmol/L 23 - 31 mmol/L [facility] Creatinine [Mass/Vol] 1.08 mg/dL 0.72 - 1.25 mg/dL [facility] GFR/1.73 sq M.predicted (S/P/Bld) [Vol rate/Area] 74.3 mL/min - PINF [facility] Glucose [Mass/Vol] 180 mg/dL High 82 - 115 mg/dL [facility] Interpretation and review of laboratory results Abnormal [facility] Potassium [Moles/Vol] 4.6 mmol/L 3.5 - 5.1 mmol/L [facility] Protein [Mass/Vol] 6.8 g/dL 6.4 - 8.3 g/dL [facility] Sodium [Moles/Vol] 132 mmol/L Low 136 - 145 mmol/L [facility] Urea nitrogen [Mass/Vol] 30 mg/dL High 9 - 23 mg/dL [facility] ECG 12-LEADon 06-05-2025 ECG 12-LEAD IMPRESSION: Atrial fibrillation Ventricular premature complex LEFT BUNDLE BRANCH BLOCK NO CHANGE SINCE PREVIOUS ECG PERFORMED ON 06/04/2025 Electronically Signed On 06-05-2025 13:15:39 EDT by Selena Sweeney Normal [facility] Laboratory - Chemistry and C hemistry - challengeon 06-05-2025 Glucose [Mass/Vol] 254 mg/dL High 70 - 100 mg/dL [facility] Magnesium [Mass/Vol] 2.1 mg/dL 1.6 - 2 .6 mg/dL [facility] Glucose [Mass/Vol] 199 mg/dL High 70 - 100 mg/dL [facility] Laboratory - Drug toxicology on 06-05-2025 Vancomycin trough [Mass/Vol] 21.8 ug/mL [facility] Laboratory - Hematology and Cell countson 06-05-2025 Band form neutrophils (Bld) [#/Vol] 0.2 10*3/uL High NINF - 0.0 10*3/uL [facility] Band form neutrophils/100 WBC (Bld) 3 % High NINF - 0 % [facility] Basophils (Bld) [#/Vol] 0.1 10*3/uL 0.0 - 0.2 10*3/uL [facility] Basophils/100 WBC (Bld) 1 % 0 - 2 % [facility] Tracy cells LM Ql (Bld) Slight Abnormal (none) [facility] Lymphocytes (Bld) [#/Vol] 0.2 10*3/uL Low 1.0 - 4.3 10*3/uL [facility] Lymphocytes/100 WBC (Bld) 3 % Low 15 - 45 % [facility] Monocytes (Bld) [#/Vol] 0.1 10*3/uL 0.0 - 0.9 10*3/uL [facility] Monocytes/100 WBC (Bld) 1 % Low 5 - 13 % [facility] Neutrophils (Bld) [#/Vol] 6.7 10*3/uL 1.8 - 7.5 10*3/uL [facility] Poikilocytosis LM Ql (Bld) Slight Abnormal (none) [facility] RBC morphology finding Nom (Bld) abnormal [facility] Segmented neutrophils/100 WBC (Bld) 92 % High 38 - 82 % [facility] MAGNESIUMon 06-05-2025 Magnesium [Mass/Vol] 2.1 mg/dL Normal 1.6-2.6 [facility] Comment on above: Result Comment: ANUPAM Alonso COMMENTS:Higher values can be expected in females during menses. Performed By: #### L [id number], [id number] ####Fire Operations Forester: MELI CARRILLO ([phone])[facility] ([facility])[address] MANUAL DIFFERENTIAL (CELLAVI WESTON)on 06-05-2025 BAND NEUTROPHILS TOTAL PER COUNTED LEUKOCYTES BY MANUAL COUNT 3 Normal [facility] Comment on above: Performed By: #### L [id number], [id number] ####Fire Operations Forester: MELI CARRILLO ([id number])[facility] (SBHLAB)[address] [place] [address] [place] BANDS (10*3/UL) IN BLOOD-CELLAVISION 0.2 10*3/uL High <=0.0 [facility] Comment on above: Performed By: #### L [id number], [id number] ####Fire Operations Forester: MELI CARRILLO ([phone])[facility] (SBAB)[address] [place] [address] [place] BASOPHILS (10*3/UL) IN BLOOD-CELLAVISION 0.1 10*3/uL Normal 0.0-0.2 [facility] Comment on above: Performed By: #### L [id number], [id number] ####Fire Operations Forester: MELI TIDWELLCER ([phone])[facility]ENTERA [place] (SBHLAB)[address] [place] [address] [place] BASOPHILS TOTAL PER COUNTED LEUKOCYTES BY MANUAL COUNT 1 Normal [facility] Comment on above: Performed By: #### L [id number], [id number] ####Fire Operations Forester: MELI LEECALDERON ([id number])[facility]ENTERA [place] (SBHLAB)[address] [place] [address] [place] BASOPHILS/100 LEUKOCYTES IN BLOOD-CELLAVISION 1 % Normal 0-2 [facility] Comment on above: Performed By: #### L [id number], [id number] ####Fire Operations Forester: MELI LEECALDERON ([phone])[facility]ENTERA [place] (SBHLAB)[address] [place] [address] [place] BLASTS TOTAL PER COUNTED LEUKOCYTES BY MANUAL COUNT Normal [facility] Comment on above: Performed By: #### L [id number], [id number] ####Fire Operations Forester: MELI CARRILLO ([phone])[facility]A [place] (SBHLAB)[address] [place] [address] [place] TRACY CELLS PRESENCE IN BLOOD BY LIGHT MICROSCOPY Slight Abnormal (none) [facility] Comment on above: Performed By: #### L [id number], [id number] ####Fire Operations Forester: MELI CARRILLO ([phone])[facility]A [place] (SBHLAB)[address] [place] [address] [place] EOSINOPHILS TOTAL PER COUNTED LEUKOCYTES BY MANUAL COUNT Normal [facility] Comment on above: Performed By: #### L [id number], [id number] ####Fire Operations Forester: MELI CARRILLO ([phone])[facility]A [place] (SBHLAB)[address] [place] [address] [place] LYMPHOCYTES (10*3/UL) IN BLOOD-CELLAVISION 0.2 10*3/uL Low 1.0-4.3 [facility] Comment on above: Performed By: #### L [id number], [id number] ####Fire Operations Forester: MELI CARRILLO ([id number])[facility] [place] (SBHLAB)[address] [place] [address] [place] LYMPHOCYTES TOTAL PER COUNTED LEUKOCYTES BY MANUAL COUNT 3 Normal [facility] Comment on above: Performed By: #### L [id number], [id number] ####Fire Operations Forester: MELI GERARDO ([phone])[facility] [place] (SBHLAB)[address] [place] [address] [place] LYMPHOCYTES/100 LEUKOCYTES IN BLOOD-CELLAVISION 3 % Low 15-45 [facility] Comment on above: Performed By: #### L [id number], [id number] ####Fire Operations Forester: MELI CARRILLO ([id number])[facility] [place] (SBHLAB)[address] [place] [address] [place] METAMYELOCYTES TOTAL PER COUNTED LEUKOCYTES BY MANUAL COUNT Normal [facility] Comment on above: Performed By: #### L [id number], [id number] ####Fire Operations Forester: MELI GERARDO ([id number])[facility] [place] (SBHLAB)[address] [place] [address] [place] MONOCYTES (10*3/UL) IN BLOOD-CELLAVISION 0.1 10*3/uL Normal 0.0-0.9 [facility] Comment on above: Performed By: #### L [id number], [id number] ####Fire Operations Forester: MELI GERARDO ([phone])[facility] [place] (SBHLAB)[address] [place] [address] [place] MONOCYTES TOTAL PER COUNTED LEUKOCYTES BY MANUAL COUNT 1 Normal [facility] Comment on above: Performed By: #### L [id number], [id number] ####Fire Operations Forester: MELI LEECALDERON ([phone])[facility] [place] (SBHLAB)[address] [place] [address] [place] MONOCYTES/100 LEUKOCYTES IN BLOOD-RIGOBERTO 1 % Low 5-13 [facility] Comment on above: Performed By: #### L [id number], [id number] ####Fire Operations Forester: MELI CARRILLO ([id number])[facility] [place] (SBHLAB)[address] MYELOCYTES COUNTED BY MANUAL COUNT [facility] Comment on above: Performed By: #### L [id number], [id number] ####Fire Operations Forester: MELI CARRILLO ([id number])[facility] [place] (SBHLAB)[address] NEUTROPHILS BAND FORM/100 LEUKOCYTES IN BLOOD-CELLAVISI 3 % High <=0 [facility] Comment on above: Performed By: #### L [id number], [id number] ####Fire Operations Forester: MELI CARRILLO ([phone])[facility] [place] (SBHLAB)[address] NEUTROPHILS TOTAL PER COUNTED LEUKOCYTES BY MANUAL COUNT 92 [facility] Comment on above: Performed By: #### L [id number], [id number] ####Fire Operations Forester: MELI CARRILLO ([id number])[facility] [place] (SBHLAB)[address] POIKILOCYTOSIS (PRESENCE) IN BLOOD BY LIGHT MICROSCOPY Slight Abnormal (none) [facility] Comment on above: Performed By: #### L [id number], [id number] ####Fire Operations Forester: MELI CARRILLO ([phone])[facility] [place] (SBHLAB)[address] [place] [address] [place] PROMYELOCYTES TOTAL PER COUNTED LEUKOCYTES BY MANUAL COUNT [facility] Comment on above: Performed By: #### L [id number], [id number] ####Fire Operations Forester: MELI CARRILLO ([id number])[facility] [place] (SBHLAB)[address] RBC MORPHOLOGY IN BLOOD abnormal Normal [facility] Comment on above: Performed By: #### L [id number], [id number] ####Fire Operations Forester: MELI CARRILLO ([id number])[facility] [place] (SBHLAB)[address] SEGMENTED NEUTROPHILS (10*3/UL) IN BLOOD-CELLAVISION 6.7 10*3/uL Normal 1.8-7.5 [facility] Comment on above: Performed By: #### L [id number], [id number] ####Fire Operations Forester: MELI CARRILLO ([phone])[facility] [place] (SBHLAB)[address] SEGMENTED NEUTROPHILS/100 LEUKOCYTES-CE 92 % High 38-82 [facility] Comment on above: Performed By: #### L [id number], [id number] ####Fire Operations Forester: MELI CARRILLO ([id number])[facility]A [facility]ERN (SBHLAB)[address] UNCLASSIFIED CELLS TOTAL PER COUNTED LEUKOCYTES BY MANUAL COUNT Normal [facility] Comment on above: Performed By: #### L [id number], [id number] ####Fire Operations Forester: MELI CARRILLO ([phone])[facility]A [facility] [place] (SBHLAB)[address] VARIANT LYMPHOCYTES TOTAL PER COUNTED LEUKOCYTES BY MANUAL COUNT Normal [facility] Comment on above: Performed By: #### L [id number], [id number] ####Fire Operations Forester: MELI CARRILLO ([id number])[facility] (SBHLAB)[address] Magnesium [Mass/Vol]on 06-05 Interpretation and review of laboratory results Normal [facility] No Panel Informationon 06-05 Interpretation and review of laboratory results Abnormal [facility] CV EPIPHANY [facility] Interpretation and review of laboratory results Abnormal [facility] Bands Manual 3 [facility] Basophils Manual 1 [facility] Lymphocytes Manual 3 [facility] Monocytes Manual 1 [facility] Neutrophils Manual 92 [facility] No Panel InformationOrdered By: Selena Sweneey on 06-05-2025 P [place] 0 degrees [facility] [employer] Work Phone: VA Interval 0 ms [facility] Phone: QRS [place] -89 degrees [facility] Phone: QRSD Interval 181 ms [facility] Phone: QT Interval 466 ms [facility] Phone: QTC Interval 566 ms [facility] Phone: T Wave [place] 120 degrees [facility] Phone: [facility] Phone: No Panel InformationOrdered By: Lee Dubose on 06-05-2025 Interpretation and review of laboratory results Abnormal [facility] Nursing Noteon 06-05-2025 Nursing Note PICC port remains occluded-second dose given. Normal [facility] Progress Noteon 06-05-2025 Progress Note Normal [facility] Progress Note Normal [facility] Progress Note Normal [facility] Progress Note Normal [facility] Progress Note Normal [facility] VANCOMYCIN, AUC TIMED DOSING on 06-05-2025 VANCOMYCIN, AUC 21.8 ug/mL Normal [facility] Comment on above: Result Comment: ORDE R COMMENTS:Please draw random level at least >2 hours after the end of the last vancomycin infusion, or 30-minutes before next infusion.Toxicity is seen at concentrations >80-100 ug/mLTherapeutic (Peak) range: 20-40Therapeutic (Trough) range: 5-10 Performed By: #### L [id number] ####Fire Operations Forester: MELI CARRILLO ([id number])[facility] (SBAB)[address] [place] [address] Vancomycin trough [Mass/Vol] on 06-05-2025 [facility] Vital signsOrdered By: Jamie Sweeney on 06-05-2025 Heart rate 88 /min bpm [facility] Phone: [phone] 06-04-2025 [id number] Normal [facility] BLOOD CULTUREon 06-04-2025 Bacteria identified Cx Nom (Bld) Normal [facility] Comment on above: Performed By: #### L [id number] ####Fire Operations Forester: ALEIDA BAEZA ([phone])[facility] (SACLAB)[address] [place] [address] BLOOD GAS ARTERIALon 025 AMOUNT OF OXYGEN 6L Normal [facility] Comment on above: Performed By: #### L [id number] ####Fire Operations Forester: MELI CARRILLO ([phone])[facility] (SBHLAB)[address] Base excess Calc (Bld) [Moles/Vol] -0.6000 mmol/L Normal -3.0-3.0 [facility] Comment on above: Performed By: #### L [id number] ####Fire Operations Forester: MELI CARRILLO ([id number])[facility] (SBHLAB)[address] [place] [address] CO2 [Moles/Vol] 24.3 mmol/L Normal 22.0-28.0 [facility] Comment on above: Performed By: #### L [id number] ####Fire Operations Forester: MELI CARRILLO ([phone])[facility] (SBHLAB)[address] HCO3 (Bld) [Moles/Vol] 23.2 mmol/L Normal 21.0-27.0 [facility] Comment on above: Performed By: #### L [id number] ####Fire Operations Forester: MELI CARRILLO ([id number])[facility] (SBHLAB)[address] Hemoglobin (Bld) [Mass/Vol] 13.1 g/dL Low Screen only [facility] Comment on above: Performed By: #### L [id number] ####Fire Operations Forester: MELI CARRILLO ([phone])[facility] (SBHLAB)[address] OXYGEN SATURATION (%) IN ARTERIAL BLOOD 94.9 % Low 97.0-99.0 [facility] Comment on above: Performed By: #### L [id number] ####Fire Operations Forester: MELI PEREZMASSIEL ([phone])[facility]ENTEREstefania [place] (SBHLAB)[address] PCO2 ARTERIAL 35.5 mm Hg Normal 35.0-48.0 [facility] Comment on above: Performed By: #### L [id number] ####Fire Operations Forester: MELI GERARDO ([id number])[facility] (SBHLAB)[address] PH ARTERIAL 7.433 Normal 7.350-7.450 [facility] Comment on above: Performed By: #### L [id number] ####Fire Operations Forester: MELI LEECALDERON ([id number])[facility] ([facility])[address] [place] [address] PO2 ARTERIAL 79.2 mm Hg Low 83.0-108.0 [facility] Comment on above: Performed By: #### L [id number] ####Fire Operations Forester: MELI PEREZMASSIEL ([phone])[facility] ([facility])[address] [place] [address] SOURCE OF OXYGEN Nasal Cannula (LPM) Normal [facility] Comment on above: Performed By: #### L [id number] ####Fire Operations Forester: MELI GERARDO ([phone])[facility] ([facility])[address] [place] [address] BLOOD GAS, VENOUSon 06-04-20 25 AMOUNT OF OXYGEN 4 Normal [facility] Comment on above: Result Comment: ANUPAM Alonso COMMENTS:Assessment of oxygenation is best done with an arterial blood gas determination. Reference ranges for pO2, bicarbonate, and base excess are for mixed venous blood. Specimens drawn from a peripheral vein will often have higher values. Performed By: #### L [id number] ####Fire Operations Forester: MELI PEREZMASSIEL ([phone])[facility] (HLAB)[address] [place] [address] Base excess Calc (BldV) [Moles/Vol] -0.1000 mmol/L Normal -3.0-3.0 [facility] Comment on above: Performed By: #### L [id number] ####Fire Operations Forester: MELI CARRILLO ([phone])[facility] (SBHLAB)[address] CO2 [Moles/Vol] 25.6 mmol/L Normal 23.0-30.0 [facility] Comment on above: Performed By: #### L [id number] ####Fire Operations Forester: MELI CARRILLO ([phone])[facility] (SBHLAB)[address] HCO3 (Bld) [Moles/Vol] 24.4 mmol/L Normal 21.0-30.0 [facility] Comment on above: Performed By: #### L [id number] ####Fire Operations Forester: MELI CARRILLO ([phone])[facility] (SBHLAB)[address] [place] [address] Hemoglobin (Bld) [Mass/Vol] 13.0 g/dL Low Screen only [facility] Comment on above: Performed By: #### L [id number] ####Fire Operations Forester: MELI CARRILLO ([phone])[facility] (SBHLAB)[address] OXYGEN (MM HG) IN VENOUS BLOOD 38.5 mm Hg Normal [facility] Comment on above: Performed By: #### L [id number] ####Fire Operations Forester: MELI CARRILLO ([phone])[facility] (SBHLAB)[address] OXYGEN SATURATION (%) IN VENOUS BLOOD 68.8 % Normal [facility] Comment on above: Performed By: #### L [id number] ####Fire Operations Forester: MELI CARRILLO ([phone])[facility] [place] (SBHLAB)[address] PCO2, TOSHIA 39.6 mm Hg Normal 38.0-56.0 [facility] Comment on above: Performed By: #### L [id number] ####Fire Operations Forester: MELI CARRILLO ([phone])[facility]stefania [place] (SBHLAB)[address] PH VENOUS 7.408 Normal 7.320-7.420 [facility] Comment on above: Performed By: #### L [id number] ####Fire Operations Forester: MELI CARRILLO ([phone])[facility]EREstefania [facility]ENORT[facility]ERN (SBHLAB)[address] SOURCE OF OXYGEN Nasal Cannula (LPM) Normal [facility] Comment on above: Performed By: #### L [id number] ####Fire Operations Forester: MELI CARRILLO ([phone])[facility]EREstefania VILLASENORTSAILE HEALTH CENTERShannon (SBHLAB)[address] CBC W Auto Differential pane l (Bld)Ordered By: Ariane Conde on 06-04-2025 Erythrocyte distribution width (RBC) [Ratio] 13.1 % 11.5 - 15.0 % [facility] Hematocrit (Bld) [Volume fraction] 34.9 % Low 40.0 - 52.0 % [facility] Hemoglobin (Bld) [Mass/Vol] 12.1 g/dL Low 13.0 - 18.0 g/dL [facility] Interpretation and review of laboratory results Abnormal [facility] MCH (RBC) [Entitic mass] 29.9 pg 26.0 - 34.0 pg [facility] MCHC (RBC) [Mass/Vol] 34.7 % 30.5 - 36.0 % [facility] MCV (RBC) [Entitic vol] 86.2 fL 77.0 - 99.0 fL [facility] Platelet mean volume (Bld) [Entitic vol] 9.1 fL 9.0 - 12.7 fL [facility] Platelets (Bld) [#/Vol] 294 10*3/uL 140 - 440 10*3/uL [facility] RBC (Bld) [#/Vol] 4.05 10*6/uL Low 4.40 - 5.9 0 10*6/uL [facility] WBC (Bld) [#/Vol] 10.7 10*3/uL 3.6 - 10.7 10*3/uL [facility] CBC WITH AUTO DIFFERENTIALon 10-03-2025 Erythrocyte distribution width (RBC) [Ratio] 13.1 % Normal 11.5-15.0 [facility] Comment on above: Performed By: #### L [id number], [id number] ####Fire Operations Forester: MELI CARRILLO ([id number])SMITAEstefania VILLASENORBERNA[facility] (SBHLAB)[address] [place] [address] Hematocrit (Bld) [Volume fraction] 34.9 % Low 40.0-52.0 [facility] Comment on above: Performed By: #### L [id number], [id number] ####Fire Operations Forester: MELI CARRILLO ([id number])[facility] ([facility])[address] [place] [address] Hemoglobin (Bld) [Mass/Vol] 12.1 g/dL Low 13.0-18.0 [facility] Comment on above: Performed By: #### L [id number], [id number] ####Fire Operations Forester: MELI CARRILLO ([phone])[facility] CENTEREstefania [facility]ENTER[facility] (SBAB)[address] [place] [address] MCH (RBC) [Entitic mass] 29.9 pg Normal 26.0-34.0 [facility] Comment on above: Performed By: #### L [id number], [id number] ####Fire Operations Forester: MELI CARRILLO ([id number])[facility] (SBAB)[address] [place] [address] MCHC 34.7 % Normal 30.5-36.0 [facility] Comment on above: Performed By: #### L [id number], [id number] ####Fire Operations Forester: MELI CARRILLO ([id number])[facility] ([facility])[address] [place] [address] MCV (RBC) [Entitic vol] 86.2 fL Normal 77.0-99.0 [facility] Comment on above: Performed By: #### L [id number], [id number] ####Fire Operations Forester: MELI CARRILLO ([phone])[facility] CENTEREstefania VILLASENORBERNADETTE (SBHLAB)[address] Platelet mean volume (Bld) [Entitic vol] 9.1 fL Normal 9.0-12.7 [facility] Comment on above: Performed By: #### L [id number], [id number] ####Fire Operations Forester: MELI CARRILLO ([id number])[facility] (SBHLAB)[address] Platelets (Bld) [#/Vol] 294 10*3/uL Normal 140-440 [facility] Comment on above: Performed By: #### L [id number], [id number] ####Fire Operations Forester: MELI CARRILLO ([id number])[facility] (SBHLAB)[address] RBC (Bld) [#/Vol] 4.05 10*6/uL Low 4.40-5.90 [facility] Comment on above: Performed By: #### L [id number], [id number] ####Fire Operations Forester: MELI CARRILLO ([id number])[facility] (SBHLAB)[address] WBC (Bld) [#/Vol] 10.7 10*3/uL Normal 3.6-10.7 [facility] Comment on above: Performed By: #### L [id number], [id number] ####Fire Operations Forester: MELI CARRILLO ([id number])[facility] ([facility])[address] COMPREHENSIVE METABOLIC PANE Maciel 06-04-2025 Albumin [Mass/Vol] 2.9 g/dL Low 3.4-4.8 [facility] Comment on above: Performed By: #### L [id number], [id number], [id number], [id number] ####Fire Operations Forester: MELI CARRILLO ([id number])[facility] ([facility])[address] ALP [Catalytic activity/Vol] 114 U/L Normal 40-150 [facility] Comment on above: Performed By: #### L [id number], [id number], [id number], [id number] ####Fire Operations Forester: MELI CARRILLO ([id number])[facility] [place] ([facility])155 96 [address] ALT [Catalytic activity/Vol] 170 U/L High <40 [facility] Comment on above: Performed By: #### L [id number], [id number], [id number], [id number] ####Fire Operations Forester: MELI CARRILLO ([id number])[facility] (SB[facility]AB)[address] Anion gap [Moles/Vol] 13 mmol/L Normal 3-13 [facility] Comment on above: Performed By: #### L [id number], [id number], LAB17, [id number] ####Fire Operations Forester: MELI CARRILLO ([id number])[facility] (SB[facility])[address] AST [Catalytic activity/Vol] 134 U/L High <34 [facility] Comment on above: Performed By: #### L [id number], [id number], LAB17, [id number] ####Fire Operations Forester: MELI CARRILLO ([phone])[facility] [place] (SBHLAB)[address] Bilirubin [Mass/Vol] 0.6 mg/dL Normal <1.2 [facility] Comment on above: Performed By: #### L [id number], [id number], LAB17, [id number] ####Fire Operations Forester: MELI CARRILLO ([phone])[facility] (SBHLAB)[address] [place] [address] [place] Calcium [Mass/Vol] 9.0 mg/dL Normal 8.8-10.0 [facility] Comment on above: Performed By: #### L [id number], [id number], LAB17, [id number] ####Fire Operations Forester: MELI CARRILLO ([id number])[facility] [place] (SBHLAB)[address] [place] [address] [place] Chloride [Moles/Vol] 94 mmol/L Low 98-107 [facility] Comment on above: Performed By: #### L [id number], [id number], LAB17, [id number] ####Fire Operations Forester: MELI CARRILLO ([phone])[facility]ef[facility] OROPEZAN (SBHLAB)[address] [place] [address] [place] CO2 [Moles/Vol] 24 mmol/L Normal 23-31 [facility] Comment on above: Performed By: #### L [id number], [id number], LAB17, [id number] ####Fire Operations Forester: MELI CARRILLO ([id number])[facility]ENTEREstefania OROPEZAShannon (SBHLAB)[address] Creatinine [Mass/Vol] 1.10 mg/dL Normal 0.72-1.25 [facility] Comment on above: Performed By: #### Araseli [id number], [id number], LAB17, [id number] ####Fire Operations Forester: MELI CARRILLO ([id number])[facility] OROPEZA (SBHLAB)[address] [place] [address] [place] GLOMERULAR FILTRATION RATE ML/MIN/1.73 SQ M.PREDICTED 72.7 mL/min/1.73m*2 Normal >60.0 [facility] Comment on above: Result Comment: Calc ulation based on the Chronic Kidney Disease Epidemiology Collaboration (CKD-EPI) equation refit without adjustment for race Performed By: #### L [id number], [id number], LAB17, [id number] ####Fire Operations Forester: MELI CARRILLO ([id number])[facility] OR[facility]ZAN (SBHLAB)[address] [place] [address] [place] Glucose [Mass/Vol] 136 mg/dL High 82-115 [facility] Comment on above: Performed By: #### L [id number], [id number], LAB17, [id number] ####Fire Operations Forester: MELI CARRILLO ([id number])[facility] OROPEZAN (SBHLAB)[address] [place] [address] [place] Potassium [Moles/Vol] 4.5 mmol/L Normal 3.5-5.1 [facility] Comment on above: Result Comment: [facility] potassium values may be up to 0.5 mmol/L lower than serum values. Performed By: #### L [id number], [id number], LAB17, [id number] ####Fire Operations Forester: MELI CARRILLO ([id number])[facility] (SBHLAB)[address] Protein [Mass/Vol] 7.1 g/dL Normal 6.4-8.3 [facility] Comment on above: Performed By: #### L [id number], [id number], LAB17, [id number] ####Fire Operations Forester: MELI CARRILLO ([id number])[facility] (SBHLAB)[address] Sodium [Moles/Vol] 131 mmol/L Low 136-145 [facility] Comment on above: Performed By: #### L [id number], [id number], LAB17, [id number] ####Fire Operations Forester: MELI CARRILLO ([id number])[facility] (SBHLAB)[address] Urea nitrogen [Mass/Vol] 24 mg/dL High 9-23 [facility] Comment on above: Performed By: #### L [id number], [id number], LAB17, [id number] ####Fire Operations Forester: MELI CARRILLO ([id number])[facility] (SBHLAB)[address] COVID-19, Flu A/B, and RSV C omboon 06-04-2025 Interpretation and review of laboratory results Normal [facility] CT CHEST ANGIOGRAM W AND/OR WO IV CONTRASTon 06-04-2025 CT CHEST ANGIOGRAM W AND/OR WO IV CONTRAST Normal [facility] CTA Chest vessels WO and W c ontrast Trish 06-04-2025 [facility] Radiology Study observation (narrative) [facility] Comprehensive Metabolic Prof ilon 06-04-2025 ALB Normal 3.4-4.8 [facility] Comment on above: Order Comment: 108-2 Result Comment: [facility] Performed By: #### L [id number], L100.0100, L500.4050 #### [facility] [address] [place], [address] ALK PHOS Normal 40-129 [facility] Comment on above: Order Comment: 108-2 Result Comment: [facility] Performed By: #### L [id number], L100.0100, L500.4050 #### [facility] [address] [place], [address] ALT Normal <=46 [facility] Comment on above: Order Comment: 108-2 Result Comment: [facility] Performed By: #### L [id number], L100.0100, L500.4050 #### [facility] [address] [place], [address] AST Normal <=37 [facility] Comment on above: Order Comment: 108-2 Result Comment: [facility] Performed By: #### L [id number], L100.0100, L500.4050 #### [facility] [address] [place], [address] BUN Normal 4-19 [facility] Comment on above: Order Comment: 108-2 Result Comment: [facility] Performed By: #### L [id number], L100.0100, L500.4050 #### [facility] [address] [place], [address] BUN/CRE Normal 10-20 [facility] Comment on above: Order Comment: 108-2 Result Comment: [facility] Performed By: #### L [id number], L100.0100, L500.4050 #### [facility] [address] [place], [address] Calcium Normal 7.6-11.0 [facility] Comment on above: Order Comment: 108-2 Result Comment: [facility] Performed By: #### L [id number], L100.0100, L500.4050 #### [facility] [address] [place], [address] CL Normal 98-108 [facility] Comment on above: Order Comment: 108-2 Result Comment: [facility] Performed By: #### L [id number], L100.0100, L500.4050 #### [facility] [address] [place], [address] CO2 Normal 21.0-32.0 [facility] Comment on above: Order Comment: 108-2 Result Comment: [facility] Performed By: #### L [id number], L100.0100, L500.4050 #### [facility] [address] [place], [address] CREAT,SERUM Normal 0.70-1.20 [facility] Comment on above: Order Comment: 108-2 Result Comment: [facility] Performed By: #### L [id number], L100.0100, L500.4050 #### [facility] [address] [place], [address] eGFR Normal >60 [facility] Comment on above: Order Comment: 108-2 Result Comment: [facility] Performed By: #### L [id number], L100.0100, L500.4050 #### [facility] [address] [place], [address] GAP Normal 5-15 [facility] Comment on above: Order Comment: 108-2 Result Comment: [facility] Performed By: #### L [id number], L100.0100, L500.4050 #### [facility] [address] [place], [address] GLU Normal 70-99 [facility] Comment on above: Order Comment: 108-2 Result Comment: [facility] Performed By: #### L [id number], L100.0100, L500.4050 #### [facility] [address] [place], [address] Potassium Normal 3.3-5.1 [facility] Comment on above: Order Comment: 108-2 Result Comment: [facility] Performed By: #### L [id number], L100.0100, L500.4050 #### [facility] [address] [place], [address] T BILI Normal 0.00-1.30 [facility] Comment on above: Order Comment: 108-2 Result Comment: [facility] Performed By: #### L [id number], L100.0100, L500.4050 #### [facility] [address] [place], [address] T PROT Normal 5.9-8.4 [facility] Comment on above: Order Comment: 108-2 Result Comment: [facility] Performed By: #### L [id number], L100.0100, L500.4050 #### [facility] [address] [place], [address] Comprehensive Metabolic Profil Normal 133-145 [facility] Comment on above: Order Comment: 108-2 Result Comment: [facility] Performed By: #### L [id number], L100.0100, L500.4050 #### [facility] [address] [place], [address] Comprehensive metabolic 1998 panelon 06-04-2025 Albumin [Mass/Vol] 2.9 g/dL Low 3.4 - 4.8 g/dL [facility] [employer] ALP [Catalytic activity/Vol] 114 U/L 40 - 150 U/L [facility] [employer] ALT [Catalytic activity/Vol] 170 U/L High NINF - 40 U/L [facility] Anion gap [Moles/Vol] 13 mmol/L 3 - 13 mmol/L [facility] AST [Catalytic activity/Vol] 134 U/L High NINF - 34 U/L [facility] Bilirubin [Mass/Vol] 0.6 mg/dL NINF - 1.2 mg/dL [facility] Calcium [Mass/Vol] 9 mg/dL 8.8 - 10. 0 mg/dL [facility] Chloride [Moles/Vol] 94 mmol/L Low 98 - 10 7 mmol/L [facility] CO2 [Moles/Vol] 24 mmol/L 23 - 31 mmol/L [facility] Creatinine [Mass/Vol] 1.1 mg/dL 0.72 - 1.25 mg/dL [facility] GFR/1.73 sq M.predicted (S/P/Bld) [Vol rate/Area] 72.7 mL/min - PINF [facility] Glucose [Mass/Vol] 136 mg/dL High 82 - 115 mg/dL [facility] Interpretation and review of laboratory results Abnormal [facility] Potassium [Moles/Vol] 4.5 mmol/L 3.5 - 5.1 mmol/L [facility] Protein [Mass/Vol] 7.1 g/dL 6.4 - 8.3 g/dL [facility] Sodium [Moles/Vol] 131 mmol/L Low 136 - 145 mmol/L [facility] Urea nitrogen [Mass/Vol] 24 mg/dL High 9 - 23 mg/dL [facility] Consulton 06-04-2025 Consult Normal [facility] Consult Normal [facility] Consult Normal [facility] Consult Normal [facility] D-DIMER,QUANTITATIVEon 06-04 D-DIMER, INNOVANCE 5.23 mg/L High <0.50 [facility] Comment on above: Result Comment: ANUPAM R COMMENTS:Innovance D-Dimer values of <0.50 mg/L FEU can be used in combination with a pre-test probability model (e.g. Well's) to exclude pulmonary embolism (PE) disease, as well as an aid in the diagnosis of deep vein thrombosis (DVT). Performed By: #### L [id number] ####Fire Operations Forester: MELI CARRILLO ([phone])[facility] (SBHLAB)[address] ECG 12-LEADon 06-04-2025 ECG 12-LEAD IMPRESSION: Atrial fibrillation Ventricular premature complex Left bundle branch block No change compared to previous ekg Electronically Signed On 06-04-2025 10:15:15 EDT by Enrrique Jc Normal [facility] ECG 12-LEAD IMPRESSION: Atrial fibrillation Left bundle branch block No significant change from prior. Artifact noted. Occasional PVC Electronically Signed On 06-04-2025 00:32:08 EDT by Reese Stafford Normal [facility] ED Nursing Noteon 06-04-2025 ED Nursing Note Broadcasted ED patie nt to 2E. Normal [facility] ED Nursing Note Normal [facility] Fibrin D-dimer FEU (PPP) [Ma ss/Vol]on 06-04-2025 Interpretation and review of laboratory results Abnormal [facility] HEMOGLOBIN A1Con 06-04-2025 Glucose [Mass/Vol] 126 mg/dL Normal [facility] Comment on above: Result Comment: ANUPAM Alonso COMMENTS:HbA1c values of 5.7-6.4 percent indicate an increased risk for developing diabetes mellitus. HbA1c values greater than or equal to 6.5 percent are diagnostic of diabetes mellitus. For diagnosis of diabetes in individuals without unequivocal hyperglycemia, results should be confirmed by repeat testing. Performed By: #### L [id number] ####Fire Operations Forester: MELI CARRILLO ([id number])[facility] ([facility] [place] [address] HEMOGLOBIN A1C 6.0 %HbA1C High <5.7 [facility] Comment on above: Result Comment: Norm al less than 5.7%Prediabetes 5.7% to 6.4%Diabetes 6.5% or higher--HgbA1C levels may not be accurate in patients who have renal disease, received recent blood transfusions, are anemic, or who have dyshemoglobinemia. Performed By: #### L [id number] ####Fire Operations Forester: MELI CARRILLO ([id number])[facility] (SBHLAB)[address] HIGH SENSITIVITY TROPONIN, S ERIAL BASELINEon 06-04-2025 TROPONIN HS SERIAL BASELINE 20 ng/L Normal <=35 [facility] Comment on above: Result Comment: In i ndividuals presenting with symptoms > 2h, a baseline troponin <= 5 ng/L suggests acutecardiac injury is unlikely and further serial testing is generally not indicated. Performed By: #### L [id number] ####Fire Operations Forester: MELI CARRILLO ([phone])[facility]ENTEREstefania VILLASENORREUN[facility] (SBHLAB)[address] [place] [address] [place] TROPONIN HS SERIAL BASELINE 22 ng/L Normal <=35 [facility] Comment on above: Result Comment: In i ndividuals presenting with symptoms > 2h, a baseline troponin <= 5 ng/L suggests acutecardiac injury is unlikely and further serial testing is generally not indicated. Performed By: #### L [id number], [id number], LAB17, [id number] ####Fire Operations Forester: MELI CARRILLO ([phone])[facility]ENTEREstefania VILLASENORREUNION REHABIL[facility] (SBHLAB)[address] [place] [address] [place] HIGH SENSITIVITY TROPONIN, S ERIAL, SECOND TESTon 06-04-2025 2H TROPONIN HS (SERIAL 2ND TROPONIN) 16 ng/L Normal <=35 [facility] Comment on above: Result Comment: Risi ng or falling troponin delta between 2 ??? 15 ng/L as compared to baseline value requires a 3rd serial troponin Performed By: #### L [id number] ####Fire Operations Forester: MELI CARRILLO ([id number])[facility]ENTEREstefania VILLASENORREUN[facility] (SBHLAB)[address] [place] [address] 2H TROPONIN HS (SERIAL 2ND TROPONIN) 30 ng/L Normal <=35 [facility] Comment on above: Result Comment: Risi ng or falling troponin delta between 2 ??? 15 ng/L as compared to baseline value requires a 3rd serial troponin Performed By: #### L [id number], [id number], [id number], [id number] ####Fire Operations Forester: MELI CARRILLO ([phone])[facility]ENTEREstefania VILLAESNORREUN[facility] (SBHLAB)[address] HIGH SENSITIVITY TROPONIN, S ERIAL, THIRD TESTon 06-04-2025 4H TROPONIN HS (SERIAL 3RD TROPONIN) 14 ng/L Normal <=35 [facility] Comment on above: Result Comment: Risi ng or falling troponin delta below 2 ng/L as compared to 2h troponin value suggeststhat acute cardiac injury is unlikely. Performed By: #### L [id number] ####Fire Operations Forester: MELI CARRILLO ([id number])[facility] (SBAB)[address] LACTIC ACID WITH REFLEXon Lactate [Moles/Vol] 0.7 mmol/L Normal 0.5-2.2 [facility] Comment on above: Performed By: #### L [id number] ####Fire Operations Forester: MELI CARRILLO ([id number])[facility] ([facility])[address] Laboratory - Chemistry and C hemistry - challengeon 06-04-2025 Glucose [Mass/Vol] 209 mg/dL High 70 - 100 mg/dL [facility] Glucose [Mass/Vol] 248 mg/dL High 70 - 100 mg/dL [facility] Glucose [Mass/Vol] 298 mg/dL High 70 - 100 mg/dL [facility] Lactate [Moles/Vol] 0.7 mmol/L 0.5 - 2. 2 mmol/L [facility] Glucose [Mass/Vol] 169 mg/dL High 70 - 100 mg/dL [facility] Average glucose Estimated from glycated hemoglobin (Bld) [Mass/Vol] 126 mg/dL [facility] Procalcitonin [Mass/Vol] 0.44 ng/mL High NINF - 0.07 ng/mL [facility] Magnesium [Mass/Vol] 1.6 mg/dL 1.6 - 2 .6 mg/dL [facility] Base excess Calc (BldV) [Moles/Vol] -0.1000 mmol/L -3.0 - 3.0 mmol/L [facility] CO2 (BldV) [Partial pressure] 39.6 mm[Hg] [facility] CO2 [Moles/Vol] 25.6 mmol/L 23.0 - 30.0 mmol/L [facility] HCO3 (Bld) [Moles/Vol] 24.4 mmol/L 21.0 - 30.0 mmol/L [facility] Oxygen (BldV) [Partial pressure] 38.5 mm[Hg] mm Hg [facility] pH (BldV) 7.408 [pH] 7.320 - 7.420 [facility] Magnesium [Mass/Vol] 1.6 mg/dL 1.6 - 2 .6 mg/dL [facility] Laboratory - Chemistry and C hemistry - challengeOrdered By: Wanda Alarcon on 06-04-2025 Base excess Calc (Bld) [Moles/Vol] -0.6000 mmol/L -3.0 - 3.0 mmol/L [facility] CO2 (Bld) [Partial pressure] 35.5 mm[Hg] [facility] CO2 [Moles/Vol] 24.3 mmol/L 22.0 - 28.0 mmol/L [facility] HCO3 (Bld) [Moles/Vol] 23.2 mmol/L 21.0 - 27.0 mmol/L [facility] Oxygen (Bld) [Partial pressure] 79.2 mm[Hg] Low [facility] pH (Bld) 7.433 [pH] 7.350 - 7.450 [facility] Laboratory - Coagulationon 1 aPTT Coag (PPP) [Time] 35.2 s High 20.0 - 30.5 s [facility] INR Coag (PPP) [Relative time] 1.1 {INR} 0.9 - 1.1 [facility] PT Coag (Bld) [Time] 12.2 s High 9.0 - 12.0 s [facility] Fibrin D-dimer FEU (PPP) [Mass/Vol] 5.23 mg/L High [facility] - 0.50 mg/L [facility] - Hematology and Cell countson 06-04-2025 HbA1c (Bld) [Mass fraction] 6 % [facility] Hemoglobin (Bld) [Mass/Vol] 13 g/dL Low 13.5 - 17.5 g/dl [facility] Basophils (Bld) [#/Vol] 0.1 10*3/uL 0.0 - 0.2 10*3/uL [facility] Basophils/100 WBC (Bld) 1 % 0 - 2 % [facility] Lymphocytes (Bld) [#/Vol] 0.4 10*3/uL Low 1.0 - 4.3 10*3/uL [facility] Lymphocytes/100 WBC (Bld) 4 % Low 15 - 45 % [facility] Monocytes (Bld) [#/Vol] 0.2 10*3/uL 0.0 - 0.9 10*3/uL [facility] Monocytes/100 WBC (Bld) 2 % Low 5 - 13 % S [facility] Myelocytes (Bld) [#/Vol] 0.1 10*3/uL High NINF - 0.0 10*3/uL [facility] Myelocytes/100 WBC (Bld) 1 % High NINF - 0 % [facility] Neutrophils (Bld) [#/Vol] 9.8 10*3/uL High 1.8 - 7.5 10*3/uL [facility] RBC morphology finding Nom (Bld) Normal [facility] Segmented neutrophils/100 WBC (Bld) 92 % High 38 - 82 % [facility] - Hematology and Cell countsOrdered By: Wanda Alarcon on 06-04-2025 Hemoglobin (Bld) [Mass/Vol] 13.1 g/dL Low 13.5 - 17.5 g/dl [facility] - Microbiology an d Antimicrobial susceptibilityOrdered By: Denice Rico on 06-04-2025 L. pneumophila 1 Ag IA.rapid Ql (U) Not detected Not Detected [facility] - Microbiology an d Antimicrobial susceptibilityon 06-04-2025 FLUAV RNA GEO+probe Ql (Resp) Not detected Not Detected [facility] FLUBV RNA GEO+probe Ql (Resp) Not detected Not Detected [facility] RSV RNA GEO+probe Ql (Resp) Not detected Not Detected [facility] SARS-CoV-2 (COVID-19) RNA GEO+probe Ql (Resp) Not detected Not Detected [facility] MAGNESIUMon 06-04-2025 Magnesium [Mass/Vol] 1.6 mg/dL Normal 1.6-2.6 [facility] Comment on above: Result Comment: ANUPAM Alonso COMMENTS:Higher values can be expected in females during menses. Performed By: #### L [id number], [id number], [id number], [id number] ####Fire Operations Forester: MELI CARRILLO ([id number])[facility] ([facility])[address] Magnesium [Mass/Vol] 1.6 mg/dL Normal 1.6-2.6 [facility] Comment on above: Result Comment: ANUPAM Celeste COMMENTS:Higher values can be expected in females during menses. Performed By: #### L [id number], [id number], LAB17, [id number] ####Fire Operations Forester: MELI CARRILLO ([id number])[facility] [place] (SBHLAB)[address] MANUAL DIFFERENTIAL (CELLAVI WESTON)on 06-04-2025 BAND NEUTROPHILS TOTAL PER COUNTED LEUKOCYTES BY MANUAL COUNT Normal [facility] Comment on above: Performed By: #### L [id number], [id number] ####Fire Operations Forester: MELI CARRILLO ([id number])[facility] [place] (SBHLAB)[address] [place] [address] [place] BASOPHILS (10*3/UL) IN BLOOD-CELLAVISION 0.1 10*3/uL Normal 0.0-0.2 [facility] Comment on above: Performed By: #### L [id number], [id number] ####Fire Operations Forester: MELI CARRILLO ([id number])[facility] [place] (SBHLAB)[address] [place] [address] [place] BASOPHILS TOTAL PER COUNTED LEUKOCYTES BY MANUAL COUNT 1 Normal [facility] Comment on above: Performed By: #### L [id number], [id number] ####Fire Operations Forester: MELI CARRILLO ([id number])[facility] [place] (SBHLAB)[address] [place] [address] [place] BASOPHILS/100 LEUKOCYTES IN BLOOD-CELLAVISION 1 % Normal 0-2 [facility] Comment on above: Performed By: #### L [id number], [id number] ####Fire Operations Forester: MELI CARRILLO ([id number])[facility] (SBHLAB)[address] BLASTS TOTAL PER COUNTED LEUKOCYTES BY MANUAL COUNT Normal [facility] Comment on above: Performed By: #### L [id number], [id number] ####Fire Operations Forester: MELI LEECALDERON ([id number])[facility] [place] (SBHLAB)[address] [place] [address] [place] EOSINOPHILS TOTAL PER COUNTED LEUKOCYTES BY MANUAL COUNT Normal [facility] Comment on above: Performed By: #### L [id number], [id number] ####Fire Operations Forester: MELI LEECALDERON ([id number])[facility] [place] (SBHLAB)[address] [place] [address] [place] LYMPHOCYTES (10*3/UL) IN BLOOD-CELLAVISION 0.4 10*3/uL Low 1.0-4.3 [facility] Comment on above: Performed By: #### L [id number], [id number] ####Fire Operations Forester: MELI GERARDO ([phone])[facility] [place] (SBHLAB)[address] LYMPHOCYTES TOTAL PER COUNTED LEUKOCYTES BY MANUAL COUNT 4 Normal [facility] Comment on above: Performed By: #### L [id number], [id number] ####Fire Operations Forester: MELI LEECALDERON ([phone])[facility] [place] (SBHLAB)[address] [place] [address] [place] LYMPHOCYTES/100 LEUKOCYTES IN BLOOD-CELLAVISION 4 % Low 15-45 [facility] Comment on above: Performed By: #### L [id number], [id number] ####Fire Operations Forester: MELI LEECALDERON ([id number])[facility] [place] (SBHLAB)[address] [place] [address] [place] METAMYELOCYTES TOTAL PER COUNTED LEUKOCYTES BY MANUAL COUNT Normal [facility] Comment on above: Performed By: #### L [id number], [id number] ####Fire Operations Forester: MELI LEEKELSYMASSIEL ([phone])[facility] [place] (SBHLAB)[address] [place] [address] [place] MONOCYTES (10*3/UL) IN BLOOD-CELLAVISION 0.2 10*3/uL Normal 0.0-0.9 [facility] Comment on above: Performed By: #### L [id number], [id number] ####Fire Operations Forester: MELI LEECALDERON ([id number])[facility] [place] (SBHLAB)[address] [place] [address] [place] MONOCYTES TOTAL PER COUNTED LEUKOCYTES BY MANUAL COUNT 2 Normal [facility] Comment on above: Performed By: #### L [id number], [id number] ####Fire Operations Forester: MELI LEECALDERON ([id number])[facility] [place] (SB[facility]AB)[address] [place] [address] [place] MONOCYTES/100 LEUKOCYTES IN BLOOD-RIGOBERTO 2 % Low 5-13 [facility] Comment on above: Performed By: #### L [id number], [id number] ####Fire Operations Forester: MELI GERARDO ([id number])[facility] [place] ([facility])[address] [place] [address] [place] MYELOCYTES (10*3/UL) IN BLOOD-CELLAVISION 0.1 10*3/uL High <=0.0 [facility] Comment on above: Performed By: #### L [id number], [id number] ####Fire Operations Forester: MELI CARRILLO ([id number])[facility] [place] ([facility])[address] [place] [address] [place] MYELOCYTES COUNTED BY MANUAL COUNT 1 Normal [facility] Comment on above: Performed By: #### L [id number], [id number] ####Fire Operations Forester: MELI PEREZMASSIEL ([id number])[facility] [place] ([facility])[address] [place] [address] [place] MYELOCYTES/100 LEUKOCYTES IN BLOOD-CELLAVISION 1 % High <=0 [facility] Comment on above: Performed By: #### L [id number], [id number] ####Fire Operations Forester: MELI CARRILLO ([id number])[facility] [place] ([facility])[address] [place] [address] [place] NEUTROPHILS TOTAL PER COUNTED LEUKOCYTES BY MANUAL COUNT 92 Normal [facility] Comment on above: Performed By: #### L [id number], [id number] ####Fire Operations Forester: MELI CARRILLO ([id number])[facility] [place] ([facility])[address] [place] [address] [place] PROMYELOCYTES TOTAL PER COUNTED LEUKOCYTES BY MANUAL COUNT Normal [facility] Comment on above: Performed By: #### L [id number], [id number] ####Fire Operations Forester: MELI CARRILLO ([id number])[facility] [place] (SB[facility]AB)[address] RBC MORPHOLOGY IN BLOOD Normal Normal [facility] Comment on above: Performed By: #### L [id number], [id number] ####Fire Operations Forester: MELI CARRILLO ([phone])[facility] [place] (SB[facility]AB)[address] SEGMENTED NEUTROPHILS (10*3/UL) IN BLOOD-CELLAVISION 9.8 10*3/uL High 1.8-7.5 [facility] Comment on above: Performed By: #### L [id number], [id number] ####Fire Operations Forester: MELI CARRILLO ([phone])[facility] [place] ([facility])[address] [place] [address] [place] SEGMENTED NEUTROPHILS/100 LEUKOCYTES-CE 92 % High 38-82 [facility] Comment on above: Performed By: #### L [id number], [id number] ####Fire Operations Forester: MELI CARRILLO ([id number])[facility] [place] (SB[facility])[address] UNCLASSIFIED CELLS TOTAL PER COUNTED LEUKOCYTES BY MANUAL COUNT [facility] Comment on above: Performed By: #### L [id number], [id number] ####Fire Operations Forester: MELI CARRILLO ([id number])[facility] [place] (SB[facility])[address] [place] [address] [place] VARIANT LYMPHOCYTES TOTAL PER COUNTED LEUKOCYTES BY MANUAL COUNT [facility] Comment on above: Performed By: #### L [id number], [id number] ####Fire Operations Forester: MELI CARRILLO ([id number])[facility] [place] (SBHLAB)[address] [place] [address] [place] MRSA BY PCRon 06-04-2025 MRSA BY PCR Normal [facility] Comment on above: Performed By: #### L [id number] ####Fire Operations Forester: ALEIDA BAEZA ([id number])[facility] (SAC[facility])[address] [place] [address] [place] MRSA DNA GEO+probe Ql (Nose) on 06-04-2025 Interpretation and review of laboratory results Abnormal [facility] mecA gene Detected Abnormal Not Detected [facility] Staphylococcus aureus Detected Abnormal Not Detected S [facility] Magnesium [Mass/Vol]on 06-04 [facility] Interpretation and review of laboratory results Normal [facility] NT PRO BNPon 06-04-2025 Natriuretic peptide B (Bld) [Mass/Vol] 32586 pg/mL High <452 [facility] Comment on above: Result Comment: ANUPAM Alonso COMMENTS:NT-proBNP (pg/mL) Rule-In Rule-OutAge (y)/Presentation ??? <50 ???50-75 ???>75 ? AllAcute >450??? >900 ???>1800 ? <300Non-Acute ? >600 ???>600 ???>600 ? <125w/CKD ? >1200Patients with levels in the dobbs zone (between rule-out and rule-in levels) need extra physician attention and ancillary testing. Testing is performed on a new assay on a new. Performed By: #### L [id number], [id number], [id number], [id number] ####Fire Operations Forester: MELI CARRILLO ([id number])[facility] [place] (SBHLAB)[address] [place] [address] [place] Natriuretic peptide B [Mass/ Vol]on 06-04-2025 Interpretation and review of laboratory results Abnormal [facility] Natriuretic peptide B (Bld) [Mass/Vol] 95789 pg/mL High NINF - 452 pg/mL [facility] No Panel InformationOrdered By: Denice Rico on 06-04-2025 Interpretation and review of laboratory results Normal [facility] Streptococcus pneumoniae Ag Not detected Not Detected [facility] No Panel Informationon 06-04 Interpretation and review of laboratory results Abnormal [facility] Extra Tube Hold for add-ons. [facility] Interpretation and review of laboratory results Abnormal [facility] 4h Troponin HS (Serial 3rd Troponin) 14 ng/L NINF - 35 ng/L [facility] Interpretation and review of laboratory results Normal [facility] 2h Troponin HS (Serial 2nd Troponin) 16 ng/L NINF - 35 ng/L [facility] Interpretation and review of laboratory results Normal [facility] Interpretation and review of laboratory results Abnormal [facility] Interpretation and review of laboratory results Abnormal [facility] CV EPIPHANY [facility] Interpretation and review of laboratory results Normal [facility] Troponin HS Serial Baseline 20 ng/L NINF - 35 ng/L [facility] Interpretation and review of laboratory results Normal [facility] Interpretation and review of laboratory results Abnormal [facility] Interpretation and review of laboratory results Abnormal [facility] 2h Troponin HS (Serial 2nd Troponin) 30 ng/L NINF - 35 ng/L [facility] Interpretation and review of laboratory results Normal [facility] Interpretation and review of laboratory results Normal [facility] Amount Of Oxygen 4 [facility] Interpretation and review of laboratory results Abnormal [facility] Source Of Oxygen Nasal Cannula (LPM) [facility] Basophils Manual 1 [facility] Interpretation and review of laboratory results Abnormal [facility] Lymphocytes Manual 4 [facility] Monocytes Manual 2 [facility] Myelocytes Manual 1 [facility] Neutrophils Manual 92 [facility] Interpretation and review of laboratory results Normal [facility] Troponin HS Serial Baseline 22 ng/L NINF - 35 ng/L [facility] P [place] 0 degrees [facility] VA Interval 0 ms [facility] QRS [place] -14 degrees [facility] QRSD Interval 177 ms [facility] QT Interval 435 ms [facility] QTC Interval 545 ms [facility] T Wave [place] 147 degrees [facility] CV EPIPHANY [facility] No Panel InformationOrdered By: Enrrique Jc on 06-04-2025 P [place] 0 degrees [facility] Work Phone: VA Interval 0 ms [employer] Work Phone: QRS [place] -69 degrees [facility] Work Phone: QRSD Interval 176 ms [facility] Work Phone: [phone] QT Interval 479 ms [facility] Work Phone: QTC Interval 596 ms [facility] Work Phone: [phone] T Wave [place] 109 degrees [employer] Work Phone: [facility] Work Phone: No Panel InformationOrdered By: Wanda Alarcon on 06-04-2025 Amount Of Oxygen 6L [facility] Interpretation and review of laboratory results Abnormal [facility] Source Of Oxygen Nasal Cannula (LPM) [facility] Nursing Noteon 06-04-[address] david 2236 to [facility] te port PICC line.Mild resistance. 30 min. Aspiration attempt woithout success. Normal [facility] PHOSPHORUSon 06-04-2025 Phosphate [Mass/Vol] 4.2 mg/dL Normal 2.3-4.7 [facility] Comment on above: Performed By: #### L [id number], [id number], [id number], [id number] ####Fire Operations Forester: MELI CARRILLO ([id number])[facility] ([employer] [facility])[address] [place] [address] PROCALCITONIN TESTon 025 PROCALCITONIN 0.44 ng/mL High <0.07 [facility] Comment on above: Result Comment: ORDE R COMMENTS:PCT <0.50 = Low risk of severe sepsis and/or septic shock.PCT >2.00 = High risk of severe sepsis and/or septic shock. Performed By: #### L [id number], [id number], [id number], [id number] ####Fire Operations Forester: MELI CARRILLO ([id number])[facility]ENTEREstefania [facility]ENTERBERNA[facility] ([employer] [facility] [facility])[address] PROTIME AND APTTon aPTT Coag (Bld) [Time] 35.2 s High 20.0-30.5 [facility] Comment on above: Performed By: #### L [id number] ####Fire Operations Forester: MELI CARRILLO ([id number])[facility]stefania LYNDSAYBERNADETTE ([employer] [facility])[address] INR Coag (PPP) [Relative time] 1.1 {INR} Normal 0.9-1.1 [facility] Comment on above: Result Comment: Migue mmended Anticoagulant Therapy: SEE BELOW----- INR of 2.0 - 3.0 : - Prophylaxis of Venous Thrombosis (high-risk surgery) - Treatment of Venous Thrombosis - Treatment of Pulmonary Embolism (Includes tissue heart valves, Acute Myocardial Infarction to prevent systemic embolism, Valvular Heart Disease, and Atrial Fibrillation)----- INR of 2.5 - 3.5 : - Mechanical Prosthetic Valves (high risk) - If oral anticoagulant therapy is used to prevent Myocardial Infarction Performed By: #### L [id number] ####Fire Operations Forester: MELI CARRILLO ([id number])[facility]ENTEREstefania [facility]ENTERBER[facility] ([facility])[address] [place] [address] PT Coag (PPP) [Time] 12.2 s High 9.0-12.0 [facility] Comment on above: Performed By: #### L [id number] ####Fire Operations Forester: MELI CARRILLO ([id number])[facility] ([facility])[address] [place] [address] [place] Phosphate [Moles/Vol]on Phosphate [Mass/Vol] 4.2 mg/dL 2.3 - 4 .7 mg/dL [facility] Procalcitonin [Mass/Vol]on Interpretation and review of laboratory results Abnormal [facility] Progress Noteon 06-04-2025 Progress Note Normal [facility] Progress Note Normal [facility] Progress Note Normal [facility] Progress Note Normal [facility] Progress Note Normal [facility] Progress Note Normal [facility] RESPIRATORY PATHOGENS PANEL BY PCRon 06-04-2025 RESPIRATORY PATHOGENS PANEL BY PCR Normal [facility] Comment on above: Performed By: #### L [id number] ####Fire Operations Forester: ALEIDA BAEZA ([id number])[facility] ([facility])[address] [place] [address] Respiratory pathogens DNA an d RNA panel GEO+non-probe (Nph)on 06-04-2025 Adenovirus Not detected Not Detected [facility] B. pertussis toxin promoter region GEO+non-probe Ql (Nph) Not detected Not Detected [facility] Bordetella parapertussis Not detected Not Detected [facility] C. pneumoniae DNA GEO+non-probe Ql (Lower resp) Not detected Not Detected [facility] Coronavirus 229E Not detected Not Detected [facility] Coronavirus HKU1 Not detected Not Detected [facility] Coronavirus NL63 Not detected Not Detected [facility] Coronavirus OC43 Not detected Not Detected [facility] FLUAV RNA GEO+non-probe Ql (Nph) Not detected Not Detected [facility] FLUBV RNA GEO+non-probe Ql (Nph) Not detected Not Detected [facility] Human Metapneumovirus Not detected Not Detected [facility] Human Rhinovirus/Enterovirus Detected Abnormal Not Detected [facility] Interpretation and review of laboratory results Abnormal [facility] Mycoplasma pneumoniae Not detected Not Detected [facility] Parainfluenza 1 Not detected Not Detected [facility] Parainfluenza 2 Not detected Not Detected [facility] Parainfluenza 3 Not detected Not Detected [facility] Parainfluenza 4 Not detected Not Detected [facility] Respiratory Syncytial Virus Not detected Not Detected [facility] SARS-CoV-2 (COVID-19) RNA GEO+non-probe Ql (Nph) Not detected Not Detected [facility] SARS-COV-2, FLU A/B, AND RSV COMBOon 06-04-2025 SARS-CoV-2 (COVID-19) RNA GEO+probe Ql (Unsp spec) Normal [facility] Comment on above: Performed By: #### L [id number] ####Fire Operations Forester: MELI CARRILLO ([phone])[facility]OR[facility] (SB[facility]AB)[address] [place] [address] [place] Heart TransthoracicOrdere d By: Ronnie Almaraz on 06-04-2025 Ao Root Index 2.09 cm/m2 [employer] Work Phone: Aortic Root 4 cm [facility] Work Phone: Aortic valve Mean systole pressure gradient by US.doppler derived full Bernoulli 5 mmHg [employer] Work Phone: Aortic valve Orifice area by US 3.5 cm2 [facility] Work Phone: Aortic valve Peak systolic flow by US.doppler 1.1 m/s [facility] Phone: Ascending Aorta 3.4 cm [facility] Work Phone: Ascending Aorta Index 1.78 cm/m2 [facility] Work Phone: AV Area by Peak Velocity 1.8 cm2 [facility] Work Phone: AV Area by VTI 2.4 cm2 [facility] Work Phone: AV Peak Gradient 10 mmHg [employer] [facility] [employer] Work Phone: AV Peak Velocity 1.6 m/s [employer] Phone: AV Velocity Ratio 0.5 [facility] Work Phone: AV VTI 23.6 cm [facility] [employer] Work Phone: BRITTNEY/BSA Peak Velocity 0.9 cm2/m2 [facility] [employer] Work Phone: [phone] BRITTNEY/BSA VTI 1.3 cm2/m2 [facility] [employer] Work Phone: E/E' Lateral 11.44 [facility] Work Phone: E/E' Ratio (Averaged) 13.08 [facility] Work Phone: E/E' Septal 14.71 [facility] [employer] Work Phone: Est. RA Pressure 8 mmHg [facility] [employer] Work Phone: Fractional Shortening 2D 25 % 28 - 44 % [facility] [employer] Work Phone: Interpretation and review of laboratory results Abnormal [facility] [employer] Work Phone: IVC Diameter 3 cm [facility] [employer] Work Phone: IVSd 1.4 cm Abnormal 0.6 - 1.0 cm [facility] [employer] Work Phone: LA Diameter 5.7 cm [facility] [employer] Work Phone: LA Size Index 2.98 cm/m2 [facility] [employer] Phone: LA Volume 2C 119 mL Abnormal 18 - 58 mL [facility] [employer] Phone: LA Volume 4C 129 mL Abnormal 18 - 58 mL [facility] [employer] Work Phone: LA Volume A/L 135 mL [facility] [employer] Phone: LA Volume BP 127 mL Abnormal 18 - 58 mL [facility] [employer] Phone: LA Volume Index 2C 62 mL/m2 Abnormal 16 - 34 mL/m2 [facility] [employer] Phone: LA Volume Index 4C 68 mL/m2 Abnormal 16 - 34 mL/m2 [facility] [employer] Work Phone: LA Volume Index A/L 71 mL/m2 16 - 34 mL/m2 [facility] [employer] Phone: LA Volume Index BP 66 ml/m2 Abnormal 16 - 34 ml/m2 [facility] [employer] Work Phone: LA/AO Root Ratio 1.43 [facility] [employer] Work Phone: Left ventricular Ejection fraction by US.2D+Calculated by biplane method of disks 40 % Abnormal 55 - 100 % [facility] [employer] Work Phone: LV E' Lateral Velocity 9 cm/s [facility] [employer] Work Phone: LV E' Septal Velocity 7 cm/s [facility] Work Phone: LV EDV A2C 121 mL [facility] [employer] Work Phone: LV EDV A4C 143 mL [facility] [employer] Work Phone: LV EDV BP 135 mL 67 - 155 mL [facility] [employer] Work Phone: LV EDV Index A2C 63 mL/m2 [facility] [employer] Work Phone: LV EDV Index A4C 75 mL/m2 [employer] [facility] [employer] Work Phone: LV EDV Index BP 71 mL/m2 [facility] [employer] Work Phone: LV Ejection Fraction A2C 43 % [facility] [employer] Work Phone: LV Ejection Fraction A4C 38 % [facility] [employer] Work Phone: LV ESV A2C 69 mL [facility] [employer] Work Phone: LV ESV A4C 88 mL [facility] [employer] Work Phone: LV ESV BP 82 mL Abnormal 22 - 58 mL [facility] [employer] Work Phone: LV ESV Index A2C 36 mL/m2 [facility] [employer] Work Phone: LV ESV Index A4C 46 mL/m2 [facility] [employer] Work Phone: LV ESV Index BP 43 mL/m2 [facility] [employer] Work Phone: LV Mass 2D 296.6 g Abnormal 88 - 224 g [employer] Work Phone: LV Mass 2D Index 155.3 g/m2 Abnormal 49 - 115 g/m2 [facility] [employer] Work Phone: LV RWT Ratio 0.39 [facility] [employer] Phone: LVIDd 5.6 cm 4.2 - 5.9 cm [facility] [employer] Work Phone: LVIDd Index 2.93 cm/m2 [employer] [facility] Work Phone: LVIDs 4.2 cm [facility] Work Phone: LVIDs Index 2.2 cm/m2 [facility] Work Phone: LVOT Cardiac Output 4.7 liter/minute [facility] Work Phone: LVOT Diameter 2.1 cm [facility] Work Phone: LVOT Mean Gradient 2 mmHg [facility] Work Phone: LVOT Peak Gradient 3 mmHg [facility] Work Phone: LVOT Peak Velocity 0.8 m/s [facility] [employer] Work Phone: LVOT Stroke Volume Index 29.7 mL/m2 [facility] Work Phone: LVOT SV 56.8 ml [facility] Work Phone: LVOT VTI 16.4 cm [facility] [employer] Work Phone: LVOT:AV VTI Index 0.69 [facility] [employer] Work Phone: LVPWd 1.1 cm Abnormal 0.6 - 1.0 cm [facility] Work Phone: MV E Velocity 1.03 m/s [facility] Work Phone: MV E Wave Deceleration Time 179.4 ms [facility] Work Phone: Pulmonary Artery EDP 1 mmHg [facility] Work Phone: RA Area 4C 126.7 mL [facility] Work Phone: RA Area 4C 118.9 mL [facility] Work Phone: RV Basal Dimension 4.4 cm [facility] Work Phone: RV Free Wall Peak S' 6 cm/s [facility] Work Phone: RV Longitudinal Dimension 7.2 cm [facility] Work Phone: RV Mid Dimension 3.3 cm [facility] Work Phone: RVSP 39 mmHg [facility] Work Phone: Sinotubular Junction 3.3 cm [employer] Work Phone: TAPSE 1.5 cm Abnormal 1.7 cm [employer] Phone: TR Max Velocity 2.77 m/s [employer] Phone: TR Peak Gradient 31 mmHg [facility] Work Phone: [facility] Work Phone: US Heart Transthoracicon CV CPACS Vital signsOrdered By: James Jc on 06-04-2025 Heart rate 93 /min bpm [employer] Phone: Vital signson 06-04-2025 Oxygen saturation in Venous blood 68.8 % [facility] Heart rate 94 /min bpm [facility] [employer] Chest Single viewon 06-04 [facility] [employer] [facility] [employer] Radiology Study observation (narrative) [facility] XR Chest Single viewOrdered By: Carmine Caraballo on 06-04-2025 [employer] Phone: 36on 06-03-2025 36 Patient discharged t o [place] [facility] [place] [phone], spoke to Nathan to verify all orders, EOT and follow up appt on 07/06@9am. Normal [facility] Comprehensive Metabolic Prof ilon 06-03-2025 Albumin [Mass/Vol] 3.2 g/dL Low 3.4-4.8 [facility] Comment on above: Order Comment: 108.2 Performed By: #### L [id number] #### [facility] [address] [place], [place], [id number] Albumin/Globulin [Mass ratio] 0.9 {ratio} Normal 0.9-2.4 [facility] Comment on above: Order Comment: 108.2 Performed By: #### L [id number] #### [facility] [address] [place], [address] ALK PHOS 117 U/L Normal 40-129 [facility] Comment on above: Order Comment: 108.2 Performed By: #### L [id number] #### [facility] [address] [place], [address] ALT [Catalytic activity/Vol] 158 U/L High <=46 [facility] Comment on above: Order Comment: 108.2 Performed By: #### L [id number] #### [facility] [address] [place], [address] AST [Catalytic activity/Vol] 140 U/L High <=37 [facility] Comment on above: Order Comment: 108.2 Performed By: #### L [id number] #### [facility] [address] [place], [address] Bilirubin [Mass/Vol] 0.43 mg/dL Normal 0.00-1.30 [facility] Comment on above: Order Comment: 108.2 Performed By: #### L [id number] #### [facility] [address] [place], [address] BUN/CRE 22.5 RATIO High 10-20 [facility] Comment on above: Order Comment: 108.2 Performed By: #### L [id number] #### [facility] [address] [place], [address] Calcium [Mass/Vol] 9.0 mg/dL Normal 7.6-11.0 [facility] Comment on above: Order Comment: 108.2 Performed By: #### L [id number] #### [facility] [address] [place], [address] Chloride [Moles/Vol] 92 mmol/L Low 98-108 [facility] Comment on above: Order Comment: 108.2 Performed By: #### L [id number] #### [facility] [address] [place], [address] CO2 [Moles/Vol] 26.6 mmol/L Normal 21.0-32.0 [facility] Comment on above: Order Comment: 108.2 Performed By: #### L [id number] #### [facility] [address] [place], [address] Creatinine [Mass/Vol] 0.90 mg/dL Normal 0.70-1.20 [facility] Comment on above: Order Comment: 108.2 Performed By: #### L [id number] #### [facility] [address] [place], [address] GAP 12 Normal 5-15 [facility] Comment on above: Order Comment: 108.2 Performed By: #### L [id number] #### [facility] [address] [place], [address] GFR/1.73 sq M.predicted among non-blacks MDRD (S/P/Bld) [Vol rate/Area] 92 mL/min/{1.73_m2} Normal >60 [facility] Comment on above: Order Comment: 108.2 Result Comment: mL/m in/1.73m2 CKD-EPI Creatinine Equation (2020) Performed By: #### L 500.4050 #### [facility] [address] [place], [address] Globulin (S) [Mass/Vol] 3.4 g/dL Normal 2.2-4.2 [facility] Comment on above: Order Comment: 108.2 Performed By: #### L 500.4050 #### [facility] [address] [place], [address] Glucose [Mass/Vol] 96 mg/dL Normal 70-99 [facility] Comment on above: Order Comment: 108.2 Performed By: #### L 500.4050 #### [facility] [address] [place], [address] Potassium [Moles/Vol] 4.0 mmol/L Normal 3.3-5.1 [facility] Comment on above: Order Comment: 108.2 Performed By: #### L 500.4050 #### [facility] [address] [place], [address] Sodium [Moles/Vol] 130 mmol/L Low 133-145 [facility] Comment on above: Order Comment: 108.2 Performed By: #### L 500.4050 #### [facility] [address] [place], [address] T PROT 6.5 g/dL Normal 5.9-8.4 [facility] Comment on above: Order Comment: 108.2 Performed By: #### L 500.4050 #### [facility] [address] [place], [address] Urea nitrogen [Mass/Vol] 20 mg/dL High 4-19 [facility] Comment on above: Order Comment: 108.2 Performed By: #### L 500.4050 #### [facility] [address] [place], [address] ED Provider Noteon ED Provider Note Normal [facility] Progress Noteon 06-03-2025 Progress Note Likely secondary to alcohol use. Ultrasound abdomen with hepatomegaly. Doppler of the liver showed no thrombosis. -Recheck LFTs -Continue to hold statin Normal [facility] Progress Note Likely secondary to alcohol use. 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 Since his EF had improved to 50%, he did not qualify for LifeVest. -Continue EP follow-up Normal [facility] Progress Note No abnormal bleeding on Eliquis. CBC and BMP May 2025 stable. -Continue Eliquis 5 mg p.o. twice daily -CBC and BMP every 6 months, due October 2025 [facility] Progress Note Nonvalvular. Remains in rate controlled A-fib today. -Continue Toprol 75 mg p.o. twice daily -Continue Eliquis 5 mg p.o. twice daily [facility] Progress Note [facility] [id number] 06-02-2025 [id number] Shelter/SNF - N [facility] [address] [facility] [id number] Patient/Family Choice [facility] [id number] [facility] [phone] MAR & Discharge med list transmitted to [facility] via Careport per TCC request. [id number] created in [facility] per TCC request. Facility notified via Careport. Electronically signed by MARY Dominguez [facility] [phone] [facility] [phone] [facility] [phone] [facility] [phone] PICC consult acknowledged. Plan to place once dispo settled/auth obtained. Electronically signed by: Reid Berg MD Internal Medicine Procedural and Nutrition Team 06/02/25 7:39 AM [facility] 36on 06-02-2025 36 Made in error [facility] CBC W Auto Differential pane l (Bld)on 06-02-2025 Basophils (Bld) [#/Vol] 0.1 10*3/uL 0.0 - 0.2 10*3/uL [facility] Basophils/100 WBC (Bld) 1.2 % 0.0 - 2.0 % [facility] Eosinophils (Bld) [#/Vol] 0.2 10*3/uL 0.0 - 0.5 10*3/uL [facility] Eosinophils/100 WBC (Bld) 1.7 % 0.0 - 6.0 % [facility] Erythrocyte distribution width (RBC) [Ratio] 13.1 % 11.5 - 15.0 % [facility] Hematocrit (Bld) [Volume fraction] 31.7 % Low 40.0 - 52.0 % [facility] Hemoglobin (Bld) [Mass/Vol] 10.9 g/dL Low 13.0 - 18.0 g/dL [facility] Immature granulocytes (Bld) [#/Vol] 0.1 10*3/uL High NINF - 0.1 10*3/uL [facility] Immature granulocytes/100 WBC (Bld) 0.9 % 0.0 - 2.0 % [facility] Interpretation and review of laboratory results Abnormal [facility] Lymphocytes (Bld) [#/Vol] 0.9 10*3/uL Low 1.0 - 4.3 10*3/uL [facility] Lymphocytes/100 WBC (Bld) 9.8 % Low 15.0 - 45.0 % [facility] MCH (RBC) [Entitic mass] 29.9 pg 26.0 - 34.0 pg [facility] MCHC (RBC) [Mass/Vol] 34.4 % 30.5 - 36.0 % [facility] MCV (RBC) [Entitic vol] 87.1 fL 77.0 - 99.0 fL [facility] Monocytes (Bld) [#/Vol] 1.1 10*3/uL High 0.0 - 0.9 10*3/uL [facility] Monocytes/100 WBC (Bld) 12 % 5.0 - 13.0 % [facility] Neutrophils (Bld) [#/Vol] 6.7 10*3/uL 1.8 - 7.5 10*3/uL [facility] Neutrophils/100 WBC (Bld) 74.4 % 38.0 - 82.0 % [facility] Nucleated RBC/100 WBC (Bld) [Ratio] 0 % [facility] Platelet mean volume (Bld) [Entitic vol] 9.2 fL 9.0 - 12.7 fL [facility] Platelets (Bld) [#/Vol] 362 10*3/uL 140 - 440 10*3/uL [facility] RBC (Bld) [#/Vol] 3.64 10*6/uL Low 4.40 - 5.9 0 10*6/uL [facility] WBC (Bld) [#/Vol] 9.1 10*3/uL 3.6 - 10.7 10*3/uL [facility] CBC WITH AUTO DIFFERENTIALon 06-02-2025 Basophils (Bld) [#/Vol] 0.1 10*3/uL Normal 0.0-0.2 [facility] Comment on above: Performed By: #### L [id number] ####Fire Operations Forester: ALEIDA BAEZA ([id number])[facility])[address] [place] [address] Basophils/100 WBC (Bld) 1.2 % Normal 0.0-2.0 [facility] Comment on above: Performed By: #### L [id number] ####Fire Operations Forester: ALEIDA BAEZA ([id number])[facility])[address] [place] [address] Eosinophils (Bld) [#/Vol] 0.2 10*3/uL Normal 0.0-0.5 [facility] Comment on above: Performed By: #### L [id number] ####Fire Operations Forester: ALEIDA BAEZA ([id number])[facility])[address] [place] [address] Eosinophils/100 WBC (Bld) 1.7 % Normal 0.0-6.0 [facility] Comment on above: Performed By: #### L [id number] ####Fire Operations Forester: ALEIDA BAEZA ([id number])[facility])[address] [place] [address] Erythrocyte distribution width (RBC) [Ratio] 13.1 % Normal 11.5-15.0 [facility] Comment on above: Performed By: #### L [id number] ####Fire Operations Forester: ALEIDA BAEZA ([id number])[facility])[address] [place] [address] Hematocrit (Bld) [Volume fraction] 31.7 % Low 40.0-52.0 [facility] Comment on above: Performed By: #### L [id number] ####Fire Operations Forester: ALEIDA BAEZA ([id number])[facility])[address] [place] [address] Hemoglobin (Bld) [Mass/Vol] 10.9 g/dL Low 13.0-18.0 [facility] Comment on above: Performed By: #### L [id number] ####Fire Operations Forester: ALEIDA BAEZA ([id number])[facility])[address] [place] [address] IMMATURE GRANS % 0.9 % Normal 0.0-2.0 [facility] Comment on above: Performed By: #### L [id number] ####Fire Operations Forester: ALEIDA BAEZA ([id number])[facility])[address] [place] [address] IMMATURE GRANS ABSOLUTE 0.1 10*3/uL High <0.1 [facility] Comment on above: Performed By: #### L [id number] ####Fire Operations Forester: ALEIDA BAEZA ([id number])[facility])[address] [place] [address] Lymphocytes (Bld) [#/Vol] 0.9 10*3/uL Low 1.0-4.3 [facility] Comment on above: Performed By: #### L [id number] ####Fire Operations Forester: ALEIDA BAEZA ([id number])[facility])[address] [place] [address] Lymphocytes/100 WBC (Bld) 9.8 % Low 15.0-45.0 [facility] Comment on above: Performed By: #### L [id number] ####Fire Operations Forester: ALEIDA BAEZA ([id number])[facility])[address] [place] [address] MCH (RBC) [Entitic mass] 29.9 pg Normal 26.0-34.0 [facility] Comment on above: Performed By: #### L [id number] ####Fire Operations Forester: ALEIDA BAEZA ([id number])[facility])[address] [place] [address] MCHC 34.4 % Normal 30.5-36.0 [facility] Comment on above: Performed By: #### L [id number] ####Fire Operations Forester: ALEIDA BAEZA ([id number])[facility])[address] [place] [address] MCV (RBC) [Entitic vol] 87.1 fL Normal 77.0-99.0 [facility] Comment on above: Performed By: #### L [id number] ####Fire Operations Forester: ALEIDA BAEZA ([id number])[facility] ([facility])[address] [place] [address] Monocytes (Bld) [#/Vol] 1.1 10*3/uL High 0.0-0.9 [facility] Comment on above: Performed By: #### L [id number] ####Fire Operations Forester: ALEIDA BAEZA ([id number])[facility] ([facility])[address] [place] [address] Monocytes/100 WBC (Bld) 12.0 % Normal 5.0-13.0 [facility] Comment on above: Performed By: #### L [id number] ####Fire Operations Forester: ALEIDA BAEZA ([id number])[facility] ([facility])[address] [place] [address] NEUTROPHILS ABSOLUTE 6.7 10*3/uL Normal 1.8-7.5 [facility] Comment on above: Performed By: #### L [id number] ####Fire Operations Forester: ALEIDA BAEZA ([id number])[facility])[address] [place] [address] Neutrophils/100 WBC (Bld) 74.4 % Normal 38.0-82.0 [facility] Comment on above: Performed By: #### L [id number] ####Fire Operations Forester: ALEIDA BAEZA ([id number])[facility])[address] [place] [address] NRBC 0.0 /100 WBCs Normal 0.0-2.0 [facility] Comment on above: Performed By: #### L [id number] ####Fire Operations Forester: ALEIDA BAEZA ([id number])[facility])[address] [place] [address] Platelet mean volume (Bld) [Entitic vol] 9.2 fL Normal 9.0-12.7 [facility] Comment on above: Performed By: #### L [id number] ####Fire Operations Forester: ALEIDA BAEZA ([id number])[facility] ([facility])[address] [place] [address] Platelets (Bld) [#/Vol] 362 10*3/uL Normal 140-440 [facility] Comment on above: Performed By: #### L [id number] ####Fire Operations Forester: ALEIDA BAEZA ([id number])[facility] ([facility])[address] [place] [address] RBC (Bld) [#/Vol] 3.64 10*6/uL Low 4.40-5.90 [facility] Comment on above: Performed By: #### L [id number] ####Fire Operations Forester: ALEIDA BAEZA ([id number])[facility] ([facility])[address] [place] [address] WBC (Bld) [#/Vol] 9.1 10*3/uL Normal 3.6-10.7 [facility] Comment on above: Performed By: #### L [id number] ####Fire Operations Forester: ALEIDA BAEZA ([id number])[facility])[address] [place] [address] COMPREHENSIVE METABOLIC PANE [facility] 06-02-2025 Albumin [Mass/Vol] 2.5 g/dL Low 3.4-4.8 [facility] Comment on above: Performed By: #### Araseli AB17, [id number], [id number] ####Fire Operations Forester: ALEIDA BAEZA ([id number])[facility] ([facility])[address] [place] [address] ALP [Catalytic activity/Vol] 114 U/L Normal 40-150 [facility] Comment on above: Performed By: #### L AB17, [id number], [id number] ####Fire Operations Forester: ALEIDA BAEZA ([id number])[facility])[address] [place] [address] ALT [Catalytic activity/Vol] 187 U/L High <40 [facility] Comment on above: Performed By: #### L AB17, [id number], [id number] ####Fire Operations Forester: ALEIDA BAEZA ([id number])[facility] ([facility])[address] [place] [address] Anion gap [Moles/Vol] 9 mmol/L Normal 3-13 [facility] Comment on above: Performed By: #### L AB17, [id number], [id number] ####Fire Operations Forester: ALEIDA BAEZA ([id number])[facility] ([facility])[address] [place] [address] AST [Catalytic activity/Vol] 247 U/L High <34 [facility] Comment on above: Performed By: #### L AB17, [id number], [id number] ####Fire Operations Forester: ALEIDA BAEZA ([id number])[facility])[address] [place] [address] Bilirubin [Mass/Vol] 0.6 mg/dL Normal <1.2 [facility] Comment on above: Performed By: #### L AB17, OLY644, BPQ453 ####Fire Operations Forester: ALEIDA BAEZA ([id number])[facility] ([facility])[address] [place] [address] Calcium [Mass/Vol] 8.6 mg/dL Low 8.8-10.0 [facility] Comment on above: Performed By: #### L AB17, [id number], ZWO407 ####Fire Operations Forester: ALEIDA BAEZA ([id number])[facility] ([facility])[address] [place] [address] Chloride [Moles/Vol] 94 mmol/L Low 98-107 [facility] Comment on above: Performed By: #### L AB17, [id number], [id number] ####Fire Operations Forester: ALEIDA BAEZA ([id number])[facility])[address] [place] [address] CO2 [Moles/Vol] 28 mmol/L Normal 23-31 [facility] Comment on above: Performed By: #### L AB17, [id number], YNC720 ####Fire Operations Forester: ALEIDA BAEZA ([id number])[facility] [place] [address] Creatinine [Mass/Vol] 0.91 mg/dL Normal 0.72-1.25 [facility] Comment on above: Performed By: #### L AB17, ZQF614, [id number] ####Fire Operations Forester: ALEIDA BAEZA ([id number])[facility])[address] [place] [address] GLOMERULAR FILTRATION RATE ML/MIN/1.73 SQ M.PREDICTED >90.0 Normal >60.0 [facility] Comment on above: Result Comment: Calc ulation based on the Chronic Kidney Disease Epidemiology Collaboration (CKD-EPI) equation refit without adjustment for race Performed By: #### L AB17, QVM361, [id number] ####Fire Operations Forester: ALEIDA BAEZA ([id number])[facility])[address] [place] [address] Glucose [Mass/Vol] 98 mg/dL Normal 82-115 [facility] Comment on above: Performed By: #### L AB17, [id number], [id number] ####Fire Operations Forester: ALEIDA BAEZA ([id number])[facility])[address] [place] [address] Potassium [Moles/Vol] 4.2 mmol/L Normal 3.5-5.1 [facility] Comment on above: Result Comment: [facility] potassium values may be up to 0.5 mmol/L lower than serum values. Performed By: #### L AB17, RFQ756, CSP338 ####Fire Operations Forester: ALEIDA BAEZA ([id number])[facility] [place] [address] [place] Protein [Mass/Vol] 6.3 g/dL Low 6.4-8.3 [facility] Comment on above: Performed By: #### L AB17, [id number], [id number] ####Fire Operations Forester: ALEIDA BAEZA ([id number])[facility])[address] [place] [address] [place] Sodium [Moles/Vol] 131 mmol/L Low 136-145 [facility] Comment on above: Performed By: #### L AB17, QDT335, KGP143 ####Fire Operations Forester: ALEIDA BAEZA ([id number])[facility] ([facility])[address] [place] [address] Urea nitrogen [Mass/Vol] 24 mg/dL High 9-23 [facility] Comment on above: Performed By: #### L AB17, [id number], [id number] ####Fire Operations Forester: ALEIDA BAEZA ([id number])[facility] ([facility])[address] [place] [address] Comprehensive metabolic 1998 panelon 06-02-2025 Albumin [Mass/Vol] 2.5 g/dL Low 3.4 - 4.8 g/dL [facility] ALP [Catalytic activity/Vol] 114 U/L 40 - 150 U/L [facility] ALT [Catalytic activity/Vol] 187 U/L High NINF - 40 U/L [facility] Anion gap [Moles/Vol] 9 mmol/L 3 - 13 mmol/L [facility] AST [Catalytic activity/Vol] 247 U/L High NINF - 34 U/L [facility] Bilirubin [Mass/Vol] 0.6 mg/dL NINF - 1.2 mg/dL [facility] Calcium [Mass/Vol] 8.6 mg/dL Low 8.8 - 10. 0 mg/dL [facility] Chloride [Moles/Vol] 94 mmol/L Low 98 - 10 7 mmol/L [facility] CO2 [Moles/Vol] 28 mmol/L 23 - 31 mmol/L [facility] Creatinine [Mass/Vol] 0.91 mg/dL 0.72 - 1.25 mg/dL [facility] GFR/1.73 sq M.predicted (S/P/Bld) [Vol rate/Area] - PINF [facility] Glucose [Mass/Vol] 98 mg/dL 82 - 115 mg/dL [facility] Interpretation and review of laboratory results Abnormal [facility] Potassium [Moles/Vol] 4.2 mmol/L 3.5 - 5.1 mmol/L [facility] Protein [Mass/Vol] 6.3 g/dL Low 6.4 - 8.3 g/dL [facility] Sodium [Moles/Vol] 131 mmol/L Low 136 - 145 mmol/L [facility] Urea nitrogen [Mass/Vol] 24 mg/dL High 9 - 23 mg/dL [facility] - Chemistry and C hemistry - challengeon 06-02-2025 Magnesium [Mass/Vol] 1.7 mg/dL 1.6 - 2 .6 mg/dL [facility] MAGNESIUMon 06-02-2025 Magnesium [Mass/Vol] 1.7 mg/dL Normal 1.6-2.6 [facility] Comment on above: Result Comment: ANUPAM Alonso COMMENTS:Higher values can be expected in females during menses. Performed By: #### L AB17, [id number], [id number] ####Fire Operations Forester: ALEIDA BAEZA ([id number])[facility] ([facility])[address] [place] [address] [place] Magnesium [Mass/Vol]on 06-02 [facility] No Panel Informationon 06-02 [facility] Interpretation and review of laboratory results Normal [facility] Nursing Noteon 06-02-2025 Nursing Note Normal [facility] PHOSPHORUSon 06-02-2025 Phosphate [Mass/Vol] 3.2 mg/dL Normal 2.3-4.7 [facility] Comment on above: Performed By: #### L AB17, [id number], [id number] ####Fire Operations Forester: ALEIDA BAEZA ([id number])[facility] ([facility])[address] [place] [address] [place] Phosphate [Moles/Vol]on Phosphate [Mass/Vol] 3.2 mg/dL 2.3 - 4 .7 mg/dL [facility] Progress Noteon 06-02-2025 Progress Note Normal [facility] Progress Note Normal [facility] Progress Note Normal [facility] Progress Note Normal [facility] XR CHEST 1 VIEWon 06-02-2025 XR CHEST 1 VIEW Normal [facility] XR Chest Single viewon 06-02 [facility] Radiology Study observation (narrative) [facility] [id number] 06-01-2025 [id number] Normal [facility] [id number] Informed patient abo [facility] and [facility], states he needs to talk it over with is ex-. Normal [facility] [id number] Normal [facility] BASIC METABOLIC PANELon 09-3 Anion gap [Moles/Vol] 8 mmol/L Normal 3-13 [facility] Comment on above: Performed By: #### L AB15 ####Fire Operations Forester: ALEIDA BAEZA ([id number])[facility])[address] [place] [address] Calcium [Mass/Vol] 8.6 mg/dL Low 8.8-10.0 [facility] Comment on above: Performed By: #### L AB15 ####Fire Operations Forester: ALEIDA BAEZA ([id number])[facility])[address] [place] [address] Chloride [Moles/Vol] 92 mmol/L Low 98-107 [facility] Comment on above: Performed By: #### L AB15 ####Fire Operations Forester: ALEIDA BAEZA ([id number])[facility])[address] [place] [address] CO2 [Moles/Vol] 30 mmol/L Normal 23-31 [facility] Comment on above: Performed By: #### L AB15 ####Fire Operations Forester: ALEIDA BAEZA ([id number])[facility])[address] [place] [address] Creatinine [Mass/Vol] 0.85 mg/dL Normal 0.72-1.25 [facility] Comment on above: Performed By: #### L AB15 ####Fire Operations Forester: ALEIDA BAEZA ([id number])[facility])[address] [place] [address] GLOMERULAR FILTRATION RATE ML/MIN/1.73 SQ M.PREDICTED >90.0 Normal >60.0 [facility] Comment on above: Result Comment: Calc ulation based on the Chronic Kidney Disease Epidemiology Collaboration (CKD-EPI) equation refit without adjustment for race Performed By: #### L AB15 ####Fire Operations Forester: ALEIDA BAEZA ([id number])[facility])[address] [place] [address] Glucose [Mass/Vol] 119 mg/dL High 82-115 [facility] Comment on above: Performed By: #### L AB15 ####Fire Operations Forester: ALEIDA BAEZA ([id number])[facility])[address] [place] [address] Potassium [Moles/Vol] 3.9 mmol/L Normal 3.5-5.1 [facility] Comment on above: Result Comment: [facility] potassium values may be up to 0.5 mmol/L lower than serum values. Performed By: #### L AB15 ####Fire Operations Forester: ALEIDA BAEZA ([id number])[facility])[address] [place] [address] Sodium [Moles/Vol] 130 mmol/L Low 136-145 [facility] Comment on above: Performed By: #### L AB15 ####Fire Operations Forester: ALEIDA BAEZA ([id number])[facility])[address] [place] [address] Urea nitrogen [Mass/Vol] 25 mg/dL High 9-23 [facility] Comment on above: Performed By: #### L AB15 ####Fire Operations Forester: ALEIDA BAEZA ([id number])[facility])[address] [place] [address] Basic metabolic 1998 panelon 06-01-2025 Anion gap [Moles/Vol] 8 mmol/L 3 - 13 mmol/L [facility] Calcium [Mass/Vol] 8.6 mg/dL Low 8.8 - 10. 0 mg/dL [facility] Chloride [Moles/Vol] 92 mmol/L Low 98 - 10 7 mmol/L [facility] CO2 [Moles/Vol] 30 mmol/L 23 - 31 mmol/L [facility] Creatinine [Mass/Vol] 0.85 mg/dL 0.72 - 1.25 mg/dL [facility] GFR/1.73 sq M.predicted (S/P/Bld) [Vol rate/Area] - PINF [facility] Glucose [Mass/Vol] 119 mg/dL High 82 - 115 mg/dL [facility] Interpretation and review of laboratory results Abnormal [facility] Potassium [Moles/Vol] 3.9 mmol/L 3.5 - 5.1 mmol/L [facility] Sodium [Moles/Vol] 130 mmol/L Low 136 - 145 mmol/L [facility] Urea nitrogen [Mass/Vol] 25 mg/dL High 9 - 23 mg/dL [facility] CBC W Auto Differential pane l (Bld)on 06-01-2025 Basophils (Bld) [#/Vol] 0.1 10*3/uL 0.0 - 0.2 10*3/uL [facility] Basophils/100 WBC (Bld) 1 % 0.0 - 2.0 % [facility] Eosinophils (Bld) [#/Vol] 0.1 10*3/uL 0.0 - 0.5 10*3/uL [facility] Eosinophils/100 WBC (Bld) 1.4 % 0.0 - 6.0 % [facility] Erythrocyte distribution width (RBC) [Ratio] 13 % 11.5 - 15.0 % [facility] Hematocrit (Bld) [Volume fraction] 31.5 % Low 40.0 - 52.0 % [facility] Hemoglobin (Bld) [Mass/Vol] 10.7 g/dL Low 13.0 - 18.0 g/dL [facility] Immature granulocytes (Bld) [#/Vol] 0.1 10*3/uL High NINF - 0.1 10*3/uL [facility] Immature granulocytes/100 WBC (Bld) 1.3 % 0.0 - 2.0 % [facility] Interpretation and review of laboratory results Abnormal [facility] Lymphocytes (Bld) [#/Vol] 0.8 10*3/uL Low 1.0 - 4.3 10*3/uL [facility] Lymphocytes/100 WBC (Bld) 9.6 % Low 15.0 - 45.0 % [facility] MCH (RBC) [Entitic mass] 29.9 pg 26.0 - 34.0 pg [facility] MCHC (RBC) [Mass/Vol] 34 % 30.5 - 36.0 % [facility] MCV (RBC) [Entitic vol] 88 fL 77.0 - 99.0 fL [facility] Monocytes (Bld) [#/Vol] 1.1 10*3/uL High 0.0 - 0.9 10*3/uL [facility] Monocytes/100 WBC (Bld) 12.9 % 5.0 - 13.0 % [facility] Neutrophils (Bld) [#/Vol] 6.3 10*3/uL 1.8 - 7.5 10*3/uL [facility] Neutrophils/100 WBC (Bld) 73.8 % 38.0 - 82.0 % [facility] [facility]/100 WBC (Bld) [Ratio] 0 % [facility] Platelet mean volume (Bld) [Entitic vol] 9.4 fL 9.0 - 12.7 fL [facility] Platelets (Bld) [#/Vol] 338 10*3/uL 140 - 440 10*3/uL [facility] RBC (Bld) [#/Vol] 3.58 10*6/uL Low 4.40 - 5.9 0 10*6/uL [facility] WBC (Bld) [#/Vol] 8.6 10*3/uL 3.6 - 10.7 10*3/uL [facility] CBC WITH AUTO DIFFERENTIALon 06-01-2025 Basophils (Bld) [#/Vol] 0.1 10*3/uL Normal 0.0-0.2 [facility] Comment on above: Performed By: #### L [id number] ####Fire Operations Forester: ALEIDA BAEZA ([id number])[address] Basophils/100 WBC (Bld) 1.0 % Normal 0.0-2.0 [facility] Comment on above: Performed By: #### L [id number] ####Fire Operations Forester: ALEIDA BAEZA ([id number])[facility])[address] [place] [address] Eosinophils (Bld) [#/Vol] 0.1 10*3/uL Normal 0.0-0.5 [facility] Comment on above: Performed By: #### L [id number] ####Fire Operations Forester: ALEIDA BAEZA ([id number])[facility])[address] [place] [address] Eosinophils/100 WBC (Bld) 1.4 % Normal 0.0-6.0 [facility] Comment on above: Performed By: #### L [id number] ####Fire Operations Forester: ALEIDA BAEZA ([id number])[facility])[address] [place] [address] Erythrocyte distribution width (RBC) [Ratio] 13.0 % Normal 11.5-15.0 [facility] Comment on above: Performed By: #### L [id number] ####Fire Operations Forester: ALEIDA BAEZA ([id number])[address] Hematocrit (Bld) [Volume fraction] 31.5 % Low 40.0-52.0 [facility] Comment on above: Performed By: #### L [id number] ####Fire Operations Forester: ALEIDA BAEZA ([id number])[facility])[address] [place] [address] Hemoglobin (Bld) [Mass/Vol] 10.7 g/dL Low 13.0-18.0 [facility] Comment on above: Performed By: #### L [id number] ####Fire Operations Forester: ALEIDA BAEZA ([id number])[facility])[address] [place] [address] IMMATURE GRANS % 1.3 % Normal 0.0-2.0 [facility] Comment on above: Performed By: #### L [id number] ####Fire Operations Forester: ALEIDA BAEZA ([id number])[facility])[address] [place] [address] IMMATURE GRANS ABSOLUTE 0.1 10*3/uL High <0.1 [facility] Comment on above: Performed By: #### L [id number] ####Fire Operations Forester: ALEIDA BAEZA ([id number])[facility])[address] [place] [address] [place] Lymphocytes (Bld) [#/Vol] 0.8 10*3/uL Low 1.0-4.3 [facility] Comment on above: Performed By: #### L [id number] ####Fire Operations Forester: ALEIDA BAEZA ([id number])[facility])[address] [place] [address] Lymphocytes/100 WBC (Bld) 9.6 % Low 15.0-45.0 [facility] Comment on above: Performed By: #### L [id number] ####Fire Operations Forester: ALEIDA BAEZA ([id number])[facility])[address] [place] [address] MCH (RBC) [Entitic mass] 29.9 pg Normal 26.0-34.0 [facility] Comment on above: Performed By: #### L [id number] ####Fire Operations Forester: ALEIDA BAEZA ([id number])[facility])[address] [place] [address] MCHC 34.0 % Normal 30.5-36.0 [facility] Comment on above: Performed By: #### L [id number] ####Fire Operations Forester: ALEIDA BAEZA ([id number])[facility])[address] [place] [address] MCV (RBC) [Entitic vol] 88.0 fL Normal 77.0-99.0 [facility] Comment on above: Performed By: #### L [id number] ####Fire Operations Forester: ALEIDA BAEZA ([id number])[facility])[address] [place] [address] Monocytes (Bld) [#/Vol] 1.1 10*3/uL High 0.0-0.9 [facility] Comment on above: Performed By: #### L [id number] ####Fire Operations Forester: ALEIDA BAEZA ([id number])[facility])[address] [place] [address] Monocytes/100 WBC (Bld) 12.9 % Normal 5.0-13.0 [facility] Comment on above: Performed By: #### L [id number] ####Fire Operations Forester: ALEIDA BAEZA ([id number])[facility] ([facility])[address] [place] [address] NEUTROPHILS ABSOLUTE 6.3 10*3/uL Normal 1.8-7.5 [facility] Comment on above: Performed By: #### L [id number] ####Fire Operations Forester: ALEIDA BAEZA ([id number])[facility] ([facility])[address] [place] [address] Neutrophils/100 WBC (Bld) 73.8 % Normal 38.0-82.0 [facility] Comment on above: Performed By: #### L [id number] ####Fire Operations Forester: ALEIDA BAEZA ([id number])[facility] ([facility])[address] [place] [address] NRBC 0.0 /100 WBCs Normal 0.0-2.0 [facility] Comment on above: Performed By: #### L [id number] ####Fire Operations Forester: ALEIDA BAEZA ([id number])[facility] ([facility])[address] [place] [address] Platelet mean volume (Bld) [Entitic vol] 9.4 fL Normal 9.0-12.7 [facility] Comment on above: Performed By: #### L [id number] ####Fire Operations Forester: ALEIDA BAEZA ([id number])[facility] ([facility])[address] [place] [address] [place] Platelets (Bld) [#/Vol] 338 10*3/uL Normal 140-440 [facility] Comment on above: Performed By: #### L [id number] ####Fire Operations Forester: ALEIDA BAEZA ([id number])[facility] ([facility])[address] [place] [address] RBC (Bld) [#/Vol] 3.58 10*6/uL Low 4.40-5.90 [facility] Comment on above: Performed By: #### L [id number] ####Fire Operations Forester: ALEIDA BAEZA ([id number])[facility] ([facility])[address] [place] [address] WBC (Bld) [#/Vol] 8.6 10*3/uL Normal 3.6-10.7 [facility] Comment on above: Performed By: #### L [id number] ####Fire Operations Forester: ALEIDA BAEZA ([id number])[facility] ([facility])[address] [place] [address] COMPREHENSIVE METABOLIC PANE Maciel 06-01-2025 Albumin [Mass/Vol] 2.4 g/dL Low 3.4-4.8 [facility] Comment on above: Performed By: #### L AB17, [id number], [id number] ####Fire Operations Forester: ALEIDA BAEZA ([id number])[facility] ([facility])[address] [place] [address] ALP [Catalytic activity/Vol] 103 U/L Normal 40-150 [facility] Comment on above: Performed By: #### L AB17, [id number], [id number] ####Fire Operations Forester: ALEIDA BAEZA ([id number])[facility] ([facility])[address] [place] [address] ALT [Catalytic activity/Vol] 147 U/L High <40 [facility] Comment on above: Performed By: #### L AB17, [id number], [id number] ####Fire Operations Forester: ALEIDA BAEZA ([id number])[facility] ([facility])[address] [place] [address] Anion gap [Moles/Vol] 8 mmol/L Normal 3-13 [facility] Comment on above: Performed By: #### L AB17, [id number], [id number] ####Fire Operations Forester: ALEIDA BAEZA ([id number])[facility])[address] [place] [address] AST [Catalytic activity/Vol] 184 U/L High <34 [facility] Comment on above: Performed By: #### L AB17, [id number], [id number] ####Fire Operations Forester: ALEIDA BAEZA ([id number])[facility])[address] [place] [address] Bilirubin [Mass/Vol] 0.5 mg/dL Normal <1.2 [facility] Comment on above: Performed By: #### L AB17, [id number], [id number] ####Fire Operations Forester: ALEIDA BAEZA ([id number])[facility])[address] [place] [address] Calcium [Mass/Vol] 8.2 mg/dL Low 8.8-10.0 [facility] Comment on above: Performed By: #### L AB17, [id number], [id number] ####Fire Operations Forester: ALEIDA BAEZA ([id number])[facility])[address] [place] [address] Chloride [Moles/Vol] 88 mmol/L Low 98-107 [facility] Comment on above: Performed By: #### L AB17, [id number], TXC700 ####Fire Operations Forester: ALEIDA BAEZA ([id number])[facility] ([facility])[address] [place] [address] CO2 [Moles/Vol] 32 mmol/L High 23-31 [facility] Comment on above: Performed By: #### L AB17, [id number], [id number] ####Fire Operations Forester: ALEIDA BAEZA ([id number])[facility])[address] [place] [address] Creatinine [Mass/Vol] 0.80 mg/dL Normal 0.72-1.25 [facility] Comment on above: Performed By: #### L AB17, ENM315, QSL252 ####Fire Operations Forester: ALEIDA BAEZA ([id number])[facility])[address] [place] [address] GLOMERULAR FILTRATION RATE ML/MIN/1.73 SQ M.PREDICTED >90.0 Normal >60.0 [facility] Comment on above: Result Comment: Calc ulation based on the Chronic Kidney Disease Epidemiology Collaboration (CKD-EPI) equation refit without adjustment for race Performed By: #### L AB17, [id number], [id number] ####Fire Operations Forester: ALEIDA BAEZA ([id number])[facility] [place] [address] Glucose [Mass/Vol] 92 mg/dL Normal 82-115 [facility] Comment on above: Performed By: #### L AB17, [id number], CPZ050 ####Fire Operations Forester: ALEIDA BAEZA ([id number])[facility] ([facility])[address] [place] [address] Potassium [Moles/Vol] 3.3 mmol/L Low 3.5-5.1 [facility] Comment on above: Result Comment: [facility] potassium values may be up to 0.5 mmol/L lower than serum values. Performed By: #### L AB17, [id number], [id number] ####Fire Operations Forester: ALEIDA BAEZA ([id number])[facility] ([facility])[address] [place] [address] Protein [Mass/Vol] 5.8 g/dL Low 6.4-8.3 [facility] Comment on above: Performed By: #### L AB17, [id number], CSE390 ####Fire Operations Forester: ALEIDA BAEZA ([id number])[facility] ([facility])[address] [place] [address] Sodium [Moles/Vol] 128 mmol/L Low 136-145 [facility] Comment on above: Performed By: #### L AB17, [id number], [id number] ####Fire Operations Forester: ALEIDA BAEZA ([id number])[facility])[address] [place] [address] Urea nitrogen [Mass/Vol] 27 mg/dL High 9-23 [facility] Comment on above: Performed By: #### L AB17, RXU162, [id number] ####Fire Operations Forester: ALEIDA BAEZA ([id number])[facility])[address] [place] [address] Comprehensive metabolic 1998 panelon 06-01-2025 Albumin [Mass/Vol] 2.4 g/dL Low 3.4 - 4.8 g/dL [facility] ALP [Catalytic activity/Vol] 103 U/L 40 - 150 U/L [facility] ALT [Catalytic activity/Vol] 147 U/L High [facility] - 40 U/L [facility] Anion gap [Moles/Vol] 8 mmol/L 3 - 13 mmol/L [facility] AST [Catalytic activity/Vol] 184 U/L High [facility] - 34 U/L [facility] Bilirubin [Mass/Vol] 0.5 mg/dL NINF - 1.2 mg/dL [facility] Calcium [Mass/Vol] 8.2 mg/dL Low 8.8 - 10. 0 mg/dL [facility] Chloride [Moles/Vol] 88 mmol/L Low 98 - 10 7 mmol/L [facility] CO2 [Moles/Vol] 32 mmol/L High 23 - 31 mmol/L [facility] Creatinine [Mass/Vol] 0.8 mg/dL 0.72 - 1.25 mg/dL [facility] GFR/1.73 sq M.predicted (S/P/Bld) [Vol rate/Area] - PINF [facility] Glucose [Mass/Vol] 92 mg/dL 82 - 115 mg/dL [facility] Interpretation and review of laboratory results Abnormal [facility] Potassium [Moles/Vol] 3.3 mmol/L Low 3.5 - 5.1 mmol/L [facility] Protein [Mass/Vol] 5.8 g/dL Low 6.4 - 8.3 g/dL [facility] Sodium [Moles/Vol] 128 mmol/L Low 136 - 145 mmol/L [facility] Urea nitrogen [Mass/Vol] 27 mg/dL High 9 - 23 mg/dL [facility] Consulton 06-01-2025 Consult Normal [facility] ECG 12-LEADon 06-01-2025 ECG 12-LEAD IMPRESSION: Atrial fibrillation Left bundle branch block Electronically Signed On 06-01-2025 12:10:04 EDT by Ronnie Fisher Normal [facility] LEGIONELLA AND STREPTOCOCCUS URINE ANTIGENon 06-01-2025 LEGIONELLA AND STREPTOCOCCUS URINE ANTIGEN Normal [facility] Comment on above: Performed By: #### L [id number] ####Fire Operations Forester: ALEIDA BAEZA ([id number])[facility] ([address] Laboratory - Chemistry and C hemistry - challengeon 06-01-2025 Sodium (24H U) [Mass/Vol] 62 mmol/L [facility] Albumin [Mass/Vol] 2.5 g/dL Low 3.4 - 4.8 g/dL [facility] Anion gap [Moles/Vol] 9 mmol/L 3 - 13 mmol/L [facility] Calcium [Mass/Vol] 8.6 mg/dL Low 8.8 - 10. 0 mg/dL [facility] Chloride [Moles/Vol] 89 mmol/L Low 98 - 10 7 mmol/L [facility] CO2 [Moles/Vol] 32 mmol/L High 23 - 31 mmol/L [facility] Creatinine [Mass/Vol] 0.83 mg/dL 0.72 - 1.25 mg/dL [facility] GFR/1.73 sq M.predicted (S/P/Bld) [Vol rate/Area] - PINF [facility] Glucose [Mass/Vol] 133 mg/dL High 82 - 115 mg/dL [facility] Phosphate [Mass/Vol] 3 mg/dL 2.3 - 4 .7 mg/dL [facility] Potassium [Moles/Vol] 3.3 mmol/L Low 3.5 - 5.1 mmol/L [facility] Sodium [Moles/Vol] 130 mmol/L Low 136 - 145 mmol/L [facility] Urea nitrogen [Mass/Vol] 23 mg/dL 9 - 23 mg/dL [facility] Osmolality [Osmolality] 278 mosm/kg Low [facility] Magnesium [Mass/Vol] 1.8 mg/dL 1.6 - 2 .6 mg/dL [facility] MAGNESIUMon 06-01-2025 Magnesium [Mass/Vol] 1.8 mg/dL Normal 1.6-2.6 [facility] Comment on above: Result Comment: ANUPAM R COMMENTS:Higher values can be expected in females during menses. Performed By: #### L AB17, [id number], [id number] ####Fire Operations Forester: ALEIDA BAEZA ([id number])[facility] ([facility])[address] [place] [address] Magnesium [Mass/Vol]on 06-01 [facility] No Panel Informationon 06-01 [facility] Radiology Study observation (narrative) [facility] CREATININE, URINE 22.1 mg/dL Low 63.0 - 166 .0 mg/dL [facility] [employer] Interpretation and review of laboratory results Abnormal [facility] SODIUM, URINE, FRACTIONAL EXCRETION 1.8 [facility] SODIUM, URINE, TUBULAR REABSORPTION 1 [facility] Interpretation and review of laboratory results Abnormal [facility] OSMOLALITY, URINE 297 Low [facility] CV EPIPHANY [facility] Interpretation and review of laboratory results Abnormal [facility] Interpretation and review of laboratory results Abnormal [facility] Interpretation and review of laboratory results Normal [facility] No Panel InformationOrdered By: Ronnie Fisher on 06-01-2025 P [place] 0 degrees [facility] [employer] Work Phone: VA Interval 0 ms [facility] Work Phone: QRS [place] -55 degrees [employer] Work Phone: QRSD Interval 177 ms [facility] Work Phone: QT Interval 518 ms [facility] Work Phone: QTC Interval 523 ms [facility] [employer] Work Phone: T Wave [place] 142 degrees [employer] Work Phone: [facility] Work Phone: Nursing Noteon 06-01-2025 Nursing Note Normal [facility] OSMOLALITY, SERUMon 06-01-20 25 OSMOLALITY, SERUM 278 mOsm/kg Low 280-300 [facility] Comment on above: Result Comment: ANUPAM Alonso COMMENTS:Repeated Performed By: #### L [id number] ####Fire Operations Forester: ALEIDA BAEZA ([id number])[facility] ([facility])[address] [place] [address] [place] OSMOLALITY, URINEon 06-01-20 25 OSMOLALITY, URINE 297 mOsm/kg Low 300-1000 [facility] Comment on above: Result Comment: ANUPAM Alonso COMMENTS:Repeated Performed By: #### L [id number], [id number] ####Fire Operations Forester: ALEIDA BAEZA ([id number])[facility] ([facility])[address] [place] [address] [place] PHOSPHORUSon 06-01-2025 Phosphate [Mass/Vol] 3.1 mg/dL Normal 2.3-4.7 [facility] Comment on above: Performed By: #### L AB17, [id number], [id number] ####Fire Operations Forester: ALEIDA BAEZA ([id number])[facility] ([facility])[address] [place] [address] [place] Phosphate [Moles/Vol]on 05-05 Phosphate [Mass/Vol] 3.1 mg/dL 2.3 - 4 .7 mg/dL [facility] Progress Noteon 06-01-2025 Progress Note Normal [facility] Progress Note Normal [facility] Progress Note Normal [facility] Progress Note Normal [facility] RENAL FUNCTION PANELon 06-01 Albumin [Mass/Vol] 2.5 g/dL Low 3.4-4.8 [facility] Comment on above: Performed By: #### L AB19 ####Fire Operations Forester: ALEIDA BAEZA ([id number])[facility] ([facility])[address] [place] [address] [place] Anion gap [Moles/Vol] 9 mmol/L Normal 3-13 [facility] Comment on above: Performed By: #### L AB19 ####Fire Operations Forester: ALEIDA BAEZA ([id number])[facility] ([facility])[address] [place] [address] [place] Calcium [Mass/Vol] 8.6 mg/dL Low 8.8-10.0 [facility] Comment on above: Performed By: #### L AB19 ####Fire Operations Forester: ALEIDA BAEZA ([id number])[facility] ([facility])[address] [place] [address] [place] Chloride [Moles/Vol] 89 mmol/L Low 98-107 [facility] Comment on above: Performed By: #### L AB19 ####Fire Operations Forester: ALEIDA BAEZA ([id number])[facility] ([facility])[address] [place] [address] [place] CO2 [Moles/Vol] 32 mmol/L High 23-31 [facility] Comment on above: Performed By: #### L AB19 ####Fire Operations Forester: ALEIDA BAEZA ([id number])[facility] ([facility])[address] [place] [address] Creatinine [Mass/Vol] 0.83 mg/dL Normal 0.72-1.25 [facility] Comment on above: Performed By: #### L AB19 ####Fire Operations Forester: ALEIDA BAEZA ([id number])[facility] ([facility])[address] [place] [address] GLOMERULAR FILTRATION RATE ML/MIN/1.73 SQ M.PREDICTED >90.0 Normal >60.0 [facility] Comment on above: Result Comment: Calc ulation based on the Chronic Kidney Disease Epidemiology Collaboration (CKD-EPI) equation refit without adjustment for race Performed By: #### L AB19 ####Fire Operations Forester: ALEIDA BAEZA ([id number])[facility] ([facility])[address] [place] [address] Glucose [Mass/Vol] 133 mg/dL High 82-115 [facility] Comment on above: Performed By: #### L AB19 ####Fire Operations Forester: ALEIDA BAEZA ([id number])[facility] ([facility])[address] [place] [address] Phosphate [Mass/Vol] 3.0 mg/dL Normal 2.3-4.7 [facility] Comment on above: Performed By: #### L AB19 ####Fire Operations Forester: ALEIDA BAEZA ([id number])[facility] ([facility])[address] [place] [address] Potassium [Moles/Vol] 3.3 mmol/L Low 3.5-5.1 [facility] Comment on above: Result Comment: [facility] potassium values may be up to 0.5 mmol/L lower than serum values. Performed By: #### L AB19 ####Fire Operations Forester: ALEIDA BAEZA ([id number])[facility] [place] [address] Sodium [Moles/Vol] 130 mmol/L Low 136-145 [facility] Comment on above: Performed By: #### L AB19 ####Fire Operations Forester: ALEIDA BAEZA ([id number])[facility])[address] [place] [address] Urea nitrogen [Mass/Vol] 23 mg/dL Normal 05-25 [facility] Comment on above: Performed By: #### L AB19 ####Fire Operations Forester: ALEIDA BAEZA ([id number])[facility])[address] [place] [address] SODIUM, URINE, RANDOMon 05-05 CREATININE, URINE 22.1 mg/dL Low 63.0-166.0 [facility] Comment on above: Performed By: #### L AB444, [id number] ####Fire Operations Forester: ALEIDA BAEZA ([id number])[facility])[address] [place] [address] Sodium (U) [Moles/Vol] 62 mmol/L Normal [facility] Comment on above: Performed By: #### L AB444, [id number] ####Fire Operations Forester: ALEIDA BAEZA ([id number])[facility])[address] [place] [address] SODIUM, URINE, FRACTIONAL EXCRETION 1.8 Normal [facility] Comment on above: Performed By: #### L AB444, [id number] ####Fire Operations Forester: ALEIDA BAEZA ([id number])[facility])[address] [place] [address] SODIUM, URINE, TUBULAR REABSORPTION 1.0 Normal [facility] Comment on above: Performed By: #### L AB444, [id number] ####Fire Operations Forester: ALEIDA BAEZA ([id number])[facility])[address] [place] [address] US ABDOMEN COMPLETEon 2024 US ABDOMEN COMPLETE Normal [facility] US Abdomenon 06-01-2025 Radiology Study observation (narrative) [facility] US LIVER DOPPLERon US LIVER DOPPLER Normal [facility] Vital signsOrdered By: Yonny Fisher on 06-01-2025 Heart rate 61 /min bpm [facility] Work Phone: [phone] 05-31-2025 [id number] Normal [facility] [phone] Introduced self. Sta kaylin I need a choice off the list at bedside. Stated he hadn't look at it. Told him I will be back later in the day to get his choice. Normal [facility] [phone] Normal [facility] BASIC METABOLIC PANELon 05-04 Anion gap [Moles/Vol] 6 mmol/L Normal 3-13 [facility] Comment on above: Performed By: #### L AB15, [id number], [id number] ####Fire Operations Forester: ALEIDA BAEZA ([id number])[facility])[address] [place] [address] Calcium [Mass/Vol] 8.4 mg/dL Low 8.8-10.0 [facility] Comment on above: Performed By: #### L AB15, [id number], ILD556 ####Fire Operations Forester: ALEIDA BAEZA ([id number])[facility])[address] [place] [address] Chloride [Moles/Vol] 90 mmol/L Low 98-107 [facility] Comment on above: Performed By: #### L AB15, MRR234, [id number] ####Fire Operations Forester: ALEIDA BAEZA ([id number])[facility])[address] [place] [address] CO2 [Moles/Vol] 33 mmol/L High 23-31 [facility] Comment on above: Performed By: #### L AB15, JFK357, JJW178 ####Fire Operations Forester: ALEIDA BAEZA ([id number])[facility])[address] [place] [address] Creatinine [Mass/Vol] 0.81 mg/dL Normal 0.72-1.25 [facility] Comment on above: Performed By: #### L AB15, [id number], [id number] ####Fire Operations Forester: ALEIDA BAEZA ([phone])[facility])[address] [place] [address] GLOMERULAR FILTRATION RATE ML/MIN/1.73 SQ M.PREDICTED >90.0 Normal >60.0 [facility] Comment on above: Result Comment: Calc ulation based on the Chronic Kidney Disease Epidemiology Collaboration (CKD-EPI) equation refit without adjustment for race Performed By: #### L AB15, [id number], [id number] ####Fire Operations Forester: ALEIDA BAEZA ([id number])[facility])[address] [place] [address] Glucose [Mass/Vol] 103 mg/dL Normal 82-115 [facility] Comment on above: Performed By: #### L AB15, [id number], [id number] ####Fire Operations Forester: ALEIDA BAEZA ([id number])[address] Potassium [Moles/Vol] 3.7 mmol/L Normal 3.5-5.1 [facility] Comment on above: Result Comment: [facility] potassium values may be up to 0.5 mmol/L lower than serum values. Performed By: #### L AB15, [id number], [id number] ####Fire Operations Forester: ALEIDA BAEZA ([id number])[facility])[address] [place] [address] Sodium [Moles/Vol] 129 mmol/L Low 136-145 [facility] Comment on above: Performed By: #### L AB15, [id number], [id number] ####Fire Operations Forester: ALEIDA BAEZA ([id number])[facility])[address] [place] [address] Urea nitrogen [Mass/Vol] 20 mg/dL Normal 9-23 [facility] Comment on above: Performed By: #### L AB15, [id number], [id number] ####Fire Operations Forester: ALEIDA BAEZA ([id number])[facility])[address] [place] [address] Basic metabolic 1998 panelon 09-29-2025 Anion gap [Moles/Vol] 6 mmol/L 3 - 13 mmol/L [facility] Calcium [Mass/Vol] 8.4 mg/dL Low 8.8 - 10. 0 mg/dL [facility] Chloride [Moles/Vol] 90 mmol/L Low 98 - 10 7 mmol/L [facility] CO2 [Moles/Vol] 33 mmol/L High 23 - 31 mmol/L [facility] Creatinine [Mass/Vol] 0.81 mg/dL 0.72 - 1.25 mg/dL [facility] GFR/1.73 sq M.predicted (S/P/Bld) [Vol rate/Area] - PINF [facility] Glucose [Mass/Vol] 103 mg/dL 82 - 115 mg/dL [facility] Potassium [Moles/Vol] 3.7 mmol/L 3.5 - 5.1 mmol/L [facility] Sodium [Moles/Vol] 129 mmol/L Low 136 - 145 mmol/L [facility] Urea nitrogen [Mass/Vol] 20 mg/dL 9 - 23 mg/dL [facility] CBC W Auto Differential pane l (Bld)on 05-31-2025 Basophils (Bld) [#/Vol] 0.1 10*3/uL 0.0 - 0.2 10*3/uL [facility] Basophils/100 WBC (Bld) 0.9 % 0.0 - 2.0 % [facility] Eosinophils (Bld) [#/Vol] 0.1 10*3/uL 0.0 - 0.5 10*3/uL [facility] Eosinophils/100 WBC (Bld) 1.2 % 0.0 - 6.0 % [facility] Erythrocyte distribution width (RBC) [Ratio] 13 % 11.5 - 15.0 % [facility] Hematocrit (Bld) [Volume fraction] 32.9 % Low 40.0 - 52.0 % [facility] Hemoglobin (Bld) [Mass/Vol] 11.1 g/dL Low 13.0 - 18.0 g/dL [facility] Immature granulocytes (Bld) [#/Vol] 0.1 10*3/uL High NINF - 0.1 10*3/uL [facility] Immature granulocytes/100 WBC (Bld) 1.3 % 0.0 - 2.0 % [facility] Interpretation and review of laboratory results Abnormal [facility] Lymphocytes (Bld) [#/Vol] 0.6 10*3/uL Low 1.0 - 4.3 10*3/uL [facility] Lymphocytes/100 WBC (Bld) 7.7 % Low 15.0 - 45.0 % [facility] MCH (RBC) [Entitic mass] 30.1 pg 26.0 - 34.0 pg [facility] MCHC (RBC) [Mass/Vol] 33.7 % 30.5 - 36.0 % [facility] MCV (RBC) [Entitic vol] 89.2 fL 77.0 - 99.0 fL [facility] Monocytes (Bld) [#/Vol] 1.1 10*3/uL High 0.0 - 0.9 10*3/uL [facility] Monocytes/100 WBC (Bld) 13.2 % High 5.0 - 13.0 % [facility] Neutrophils (Bld) [#/Vol] 6.2 10*3/uL 1.8 - 7.5 10*3/uL [facility] Neutrophils/100 WBC (Bld) 75.7 % 38.0 - 82.0 % [facility] Nucleated RBC/100 WBC (Bld) [Ratio] 0 % [facility] Platelet mean volume (Bld) [Entitic vol] 9.1 fL 9.0 - 12.7 fL [facility] Platelets (Bld) [#/Vol] 316 10*3/uL 140 - 440 10*3/uL [facility] RBC (Bld) [#/Vol] 3.69 10*6/uL Low 4.40 - 5.9 0 10*6/uL [facility] WBC (Bld) [#/Vol] 8.2 10*3/uL 3.6 - 10.7 10*3/uL [facility] CBC WITH AUTO DIFFERENTIALon 05-31-2025 Basophils (Bld) [#/Vol] 0.1 10*3/uL Normal 0.0-0.2 [facility] Comment on above: Performed By: #### L [id number] ####Fire Operations Forester: ALEIDA BAEZA ([id number])[facility] ([facility])[address] [place] [address] [place] Basophils/100 WBC (Bld) 0.9 % Normal 0.0-2.0 S [facility] Comment on above: Performed By: #### L [id number] ####Fire Operations Forester: ALEIDA BAEZA ([id number])[facility])[address] [place] [address] Eosinophils (Bld) [#/Vol] 0.1 10*3/uL Normal 0.0-0.5 [facility] Comment on above: Performed By: #### L [id number] ####Fire Operations Forester: ALEIDA BAEZA ([id number])[facility])[address] [place] [address] Eosinophils/100 WBC (Bld) 1.2 % Normal 0.0-6.0 [facility] Comment on above: Performed By: #### L [id number] ####Fire Operations Forester: ALEIDA BAEZA ([id number])[facility])[address] [place] [address] Erythrocyte distribution width (RBC) [Ratio] 13.0 % Normal 11.5-15.0 [facility] Comment on above: Performed By: #### L [id number] ####Fire Operations Forester: ALEIDA BAEZA ([id number])[facility])[address] [place] [address] Hematocrit (Bld) [Volume fraction] 32.9 % Low 40.0-52.0 [facility] Comment on above: Performed By: #### L [id number] ####Fire Operations Forester: ALEIDA BAEZA ([id number])[facility])[address] [place] [address] [place] Hemoglobin (Bld) [Mass/Vol] 11.1 g/dL Low 13.0-18.0 [facility] Comment on above: Performed By: #### L [id number] ####Fire Operations Forester: ALEIDA BAEZA ([id number])[facility])[address] [place] [address] [place] IMMATURE GRANS % 1.3 % Normal 0.0-2.0 [facility] Comment on above: Performed By: #### L [id number] ####Fire Operations Forester: ALEIDA BAEZA ([id number])[facility])[address] [place] [address] IMMATURE GRANS ABSOLUTE 0.1 10*3/uL High <0.1 [facility] Comment on above: Performed By: #### L [id number] ####Fire Operations Forester: ALEIDA BAEZA ([id number])[facility])[address] [place] [address] Lymphocytes (Bld) [#/Vol] 0.6 10*3/uL Low 1.0-4.3 [facility] Comment on above: Performed By: #### L [id number] ####Fire Operations Forester: ALEIDA BAEZA ([id number])[address] Lymphocytes/100 WBC (Bld) 7.7 % Low 15.0-45.0 [facility] Comment on above: Performed By: #### L [id number] ####Fire Operations Forester: ALEIDA BAEZA ([id number])[facility])[address] [place] [address] MCH (RBC) [Entitic mass] 30.1 pg Normal 26.0-34.0 [facility] Comment on above: Performed By: #### L [id number] ####Fire Operations Forester: ALEIDA BAEZA ([id number])[address] MCHC 33.7 % Normal 30.5-36.0 [facility] Comment on above: Performed By: #### L [id number] ####Fire Operations Forester: ALEIDA BAEZA ([id number])[address] MCV (RBC) [Entitic vol] 89.2 fL Normal 77.0-99.0 S [facility] Comment on above: Performed By: #### L [id number] ####Fire Operations Forester: ALEIDA BAEZA ([id number])[facility] [place] [address] Monocytes (Bld) [#/Vol] 1.1 10*3/uL High 0.0-0.9 [facility] Comment on above: Performed By: #### L [id number] ####Fire Operations Forester: ALEIDA BAEZA ([id number])[facility] ([facility])[address] [place] [address] Monocytes/100 WBC (Bld) 13.2 % High 5.0-13.0 [facility] Comment on above: Performed By: #### L [id number] ####Fire Operations Forester: ALEIDA BAEZA ([id number])[facility] ([facility])[address] [place] [address] NEUTROPHILS ABSOLUTE 6.2 10*3/uL Normal 1.8-7.5 [facility] Comment on above: Performed By: #### L [id number] ####Fire Operations Forester: ALEIDA BAEZA ([id number])[facility] ([facility])[address] [place] [address] Neutrophils/100 WBC (Bld) 75.7 % Normal 38.0-82.0 [facility] Comment on above: Performed By: #### L [id number] ####Fire Operations Forester: ALEIDA BAEZA ([id number])[facility] ([facility])[address] [place] [address] NRBC 0.0 /100 WBCs Normal 0.0-2.0 [facility] Comment on above: Performed By: #### L [id number] ####Fire Operations Forester: ALEIDA BAEZA ([id number])[facility] ([facility])[address] [place] [address] Platelet mean volume (Bld) [Entitic vol] 9.1 fL Normal 9.0-12.7 [facility] Comment on above: Performed By: #### L [id number] ####Fire Operations Forester: ALEIDA BAEZA ([id number])[facility] ([facility])[address] [place] [address] [place] Platelets (Bld) [#/Vol] 316 10*3/uL Normal 140-440 [facility] Comment on above: Performed By: #### L [id number] ####Fire Operations Forester: ALEIDA BAEZA ([id number])[facility] ([facility])[address] [place] [address] RBC (Bld) [#/Vol] 3.69 10*6/uL Low 4.40-5.90 [facility] Comment on above: Performed By: #### L [id number] ####Fire Operations Forester: ALEIDA BAEZA ([id number])[facility] ([facility])[address] [place] [address] WBC (Bld) [#/Vol] 8.2 10*3/uL Normal 3.6-10.7 [facility] Comment on above: Performed By: #### L [id number] ####Fire Operations Forester: ALEIDA BAEZA ([id number])[facility] ([facility])[address] [place] [address] Laboratory - Chemistry and C hemistry - challengeon 05-31-2025 Magnesium [Mass/Vol] 1.4 mg/dL Low 1.6 - 2 .6 mg/dL [facility] Laboratory - Drug toxicology on 05-31-2025 Vancomycin trough [Mass/Vol] 34 ug/mL [facility] MAGNESIUMon 05-31-2025 Magnesium [Mass/Vol] 1.4 mg/dL Low 1.6-2.6 [facility] Comment on above: Result Comment: ANUPAM Alonso COMMENTS:Higher values can be expected in females during menses. Performed By: #### L AB15, [id number], [id number] ####Fire Operations Forester: ALEIDA BAEZA ([id number])[facility] ([facility])[address] [place] [address] Magnesium [Mass/Vol]on 05-31 [facility] No Panel Informationon 05-31 Interpretation and review of laboratory results Abnormal [facility] PHOSPHORUSon 05-31-2025 Phosphate [Mass/Vol] 2.5 mg/dL Normal 2.3-4.7 [facility] Comment on above: Performed By: #### L AB15, [id number], [id number] ####Fire Operations Forester: ALEIDA BAEZA ([id number])[facility] [place] [address] [place] Phosphate [Moles/Vol]on 05-04 Interpretation and review of laboratory results Normal [facility] Phosphate [Mass/Vol] 2.5 mg/dL 2.3 - 4 .7 mg/dL [facility] Progress Noteon 05-31-2025 Progress Note Normal [facility] Progress Note Normal [facility] Progress Note Normal [facility] Progress Note Normal [facility] Progress Note Normal [facility] VANCOMYCIN, AUC TIMED DOSING on 05-31-2025 VANCOMYCIN, AUC 34.0 ug/mL Normal [facility] Comment on above: Result Comment: ANUPAM Alonso COMMENTS:Please draw random level at least >2 hours after the end of the last vancomycin infusion, or 30-minutes before next infusion.Toxicity is seen at concentrations >80-100 ug/mLTherapeutic (Peak) range: 20-40Therapeutic (Trough) range: 5-10 Performed By: #### L [id number] ####Fire Operations Forester: ALEIDA BAEZA ([id number])[facility] [place] [address] Vancomycin trough [Mass/Vol] on 05-31-2025 [facility] BASIC METABOLIC PANELon 05-04 Anion gap [Moles/Vol] 7 mmol/L Normal 3-13 [facility] Comment on above: Performed By: #### L AB15, [id number], [id number] ####Fire Operations Forester: ALEIDA BAEZA ([id number])[facility] ([facility])[address] [place] [address] [place] Calcium [Mass/Vol] 8.1 mg/dL Low 8.8-10.0 [facility] Comment on above: Performed By: #### L AB15, [id number], [id number] ####Fire Operations Forester: ALEIDA BAEZA ([id number])[facility] [place] [address] [place] Chloride [Moles/Vol] 92 mmol/L Low 98-107 [facility] Comment on above: Performed By: #### L AB15, [id number], [id number] ####Fire Operations Forester: ALEIDA BAEZA ([id number])[facility])[address] [place] [address] CO2 [Moles/Vol] 29 mmol/L Normal 23-31 [facility] Comment on above: Performed By: #### L AB15, [id number], [id number] ####Fire Operations Forester: ALEIDA BAEZA ([id number])[facility])[address] [place] [address] Creatinine [Mass/Vol] 0.86 mg/dL Normal 0.72-1.25 [facility] Comment on above: Performed By: #### L AB15, [id number], [id number] ####Fire Operations Forester: ALEIDA BAEZA ([id number])[facility])[address] [place] [address] GLOMERULAR FILTRATION RATE ML/MIN/1.73 SQ M.PREDICTED >90.0 Normal >60.0 [facility] Comment on above: Result Comment: Calc ulation based on the Chronic Kidney Disease Epidemiology Collaboration (CKD-EPI) equation refit without adjustment for race Performed By: #### L AB15, [id number], [id number] ####Fire Operations Forester: ALEIDA BAEZA ([id number])[facility])[address] [place] [address] Glucose [Mass/Vol] 138 mg/dL High 82-115 [facility] Comment on above: Performed By: #### L AB15, [id number], [id number] ####Fire Operations Forester: ALEIDA BAEZA ([id number])[facility])[address] [place] [address] Potassium [Moles/Vol] 3.4 mmol/L Low 3.5-5.1 [facility] Comment on above: Result Comment: [facility] potassium values may be up to 0.5 mmol/L lower than serum values. Performed By: #### L AB15, [id number], [id number] ####Fire Operations Forester: ALEIDA BAEZA ([id number])[facility] ([facility])[address] [place] [address] Sodium [Moles/Vol] 128 mmol/L Low 136-145 [facility] Comment on above: Performed By: #### L AB15, [id number], [id number] ####Fire Operations Forester: ALEIDA BAEZA ([id number])[facility] ([facility])[address] [place] [address] Urea nitrogen [Mass/Vol] 20 mg/dL Normal 9-23 [facility] Comment on above: Performed By: #### L AB15, [id number], [id number] ####Fire Operations Forester: ALEIDA BAEZA ([id number])[facility] ([facility])[address] [place] [address] Basic metabolic 1998 panelon 05-30-2025 Anion gap [Moles/Vol] 7 mmol/L 3 - 13 mmol/L [facility] Calcium [Mass/Vol] 8.1 mg/dL Low 8.8 - 10. 0 mg/dL [facility] Chloride [Moles/Vol] 92 mmol/L Low 98 - 10 7 mmol/L [facility] CO2 [Moles/Vol] 29 mmol/L 23 - 31 mmol/L [facility] Creatinine [Mass/Vol] 0.86 mg/dL 0.72 - 1.25 mg/dL [facility] GFR/1.73 sq M.predicted (S/P/Bld) [Vol rate/Area] - PINF [facility] Glucose [Mass/Vol] 138 mg/dL High 82 - 115 mg/dL [facility] Interpretation and review of laboratory results Abnormal [facility] Potassium [Moles/Vol] 3.4 mmol/L Low 3.5 - 5.1 mmol/L [facility] Sodium [Moles/Vol] 128 mmol/L Low 136 - 145 mmol/L [facility] Urea nitrogen [Mass/Vol] 20 mg/dL 9 - 23 mg/dL [facility] CBC W Auto Differential pane l (Bld)on 05-30-2025 Basophils (Bld) [#/Vol] 0.1 10*3/uL 0.0 - 0.2 10*3/uL [facility] Basophils/100 WBC (Bld) 0.7 % 0.0 - 2.0 % [facility] Eosinophils (Bld) [#/Vol] 0.1 10*3/uL 0.0 - 0.5 10*3/uL [facility] Eosinophils/100 WBC (Bld) 1.1 % 0.0 - 6.0 % [facility] Erythrocyte distribution width (RBC) [Ratio] 13 % 11.5 - 15.0 % [facility] Hematocrit (Bld) [Volume fraction] 32.3 % Low 40.0 - 52.0 % [facility] Hemoglobin (Bld) [Mass/Vol] 10.9 g/dL Low 13.0 - 18.0 g/dL [facility] Immature granulocytes (Bld) [#/Vol] 0.1 10*3/uL High NINF - 0.1 10*3/uL [facility] Immature granulocytes/100 WBC (Bld) 1.3 % 0.0 - 2.0 % [facility] Interpretation and review of laboratory results Abnormal [facility] Lymphocytes (Bld) [#/Vol] 0.6 10*3/uL Low 1.0 - 4.3 10*3/uL [facility] Lymphocytes/100 WBC (Bld) 6.3 % Low 15.0 - 45.0 % [facility] MCH (RBC) [Entitic mass] 29.9 pg 26.0 - 34.0 pg [facility] MCHC (RBC) [Mass/Vol] 33.7 % 30.5 - 36.0 % [facility] MCV (RBC) [Entitic vol] 88.5 fL 77.0 - 99.0 fL [facility] Monocytes (Bld) [#/Vol] 1 10*3/uL High 0.0 - 0.9 10*3/uL [facility] Monocytes/100 WBC (Bld) 11 % 5.0 - 13.0 % [facility] Neutrophils (Bld) [#/Vol] 7.2 10*3/uL 1.8 - 7.5 10*3/uL [facility] Neutrophils/100 WBC (Bld) 79.6 % 38.0 - 82.0 % [facility] Nucleated RBC/100 WBC (Bld) [Ratio] 0 % [facility] Platelet mean volume (Bld) [Entitic vol] 9.9 fL 9.0 - 12.7 fL [facility] Platelets (Bld) [#/Vol] 269 10*3/uL 140 - 440 10*3/uL [facility] RBC (Bld) [#/Vol] 3.65 10*6/uL Low 4.40 - 5.9 0 10*6/uL [facility] WBC (Bld) [#/Vol] 9.1 10*3/uL 3.6 - 10.7 10*3/uL [facility] CBC WITH AUTO DIFFERENTIALon 05-30-2025 Basophils (Bld) [#/Vol] 0.1 10*3/uL Normal 0.0-0.2 [facility] Comment on above: Performed By: #### L [id number] ####Fire Operations Forester: ALEIDA BAEZA ([id number])[facility])[address] [place] [address] Basophils/100 WBC (Bld) 0.7 % Normal 0.0-2.0 S [facility] Comment on above: Performed By: #### L [id number] ####Fire Operations Forester: ALEIDA BAEZA ([id number])[facility])[address] [place] [address] Eosinophils (Bld) [#/Vol] 0.1 10*3/uL Normal 0.0-0.5 [facility] Comment on above: Performed By: #### L [id number] ####Fire Operations Forester: ALEIDA BAEZA ([id number])[facility])[address] [place] [address] Eosinophils/100 WBC (Bld) 1.1 % Normal 0.0-6.0 [facility] Comment on above: Performed By: #### L [id number] ####Fire Operations Forester: ALEIDA BAEZA ([id number])[facility])[address] [place] [address] Erythrocyte distribution width (RBC) [Ratio] 13.0 % Normal 11.5-15.0 [facility] Comment on above: Performed By: #### L [id number] ####Fire Operations Forester: ALEIDA BAEZA ([id number])[facility])[address] [place] [address] [place] Hematocrit (Bld) [Volume fraction] 32.3 % Low 40.0-52.0 [facility] Comment on above: Performed By: #### L [id number] ####Fire Operations Forester: ALEIDA BAEZA ([id number])[facility])[address] [place] [address] Hemoglobin (Bld) [Mass/Vol] 10.9 g/dL Low 13.0-18.0 [facility] Comment on above: Performed By: #### L [id number] ####Fire Operations Forester: ALEIDA BAEZA ([id number])[facility])[address] [place] [address] IMMATURE GRANS % 1.3 % Normal 0.0-2.0 [facility] Comment on above: Performed By: #### L [id number] ####Fire Operations Forester: ALEIDA BAEZA ([id number])[facility])[address] [place] [address] IMMATURE GRANS ABSOLUTE 0.1 10*3/uL High <0.1 [facility] Comment on above: Performed By: #### L [id number] ####Fire Operations Forester: ALEIDA BAEZA ([id number])[facility])[address] [place] [address] Lymphocytes (Bld) [#/Vol] 0.6 10*3/uL Low 1.0-4.3 [facility] Comment on above: Performed By: #### L [id number] ####Fire Operations Forester: ALEIDA BAEZA ([id number])[facility])[address] [place] [address] Lymphocytes/100 WBC (Bld) 6.3 % Low 15.0-45.0 [facility] Comment on above: Performed By: #### L [id number] ####Fire Operations Forester: ALEIDA BAEZA ([id number])[facility])[address] [place] [address] MCH (RBC) [Entitic mass] 29.9 pg Normal 26.0-34.0 [facility] Comment on above: Performed By: #### L [id number] ####Fire Operations Forester: ALEIDA BAEZA ([id number])[facility])[address] [place] [address] MCHC 33.7 % Normal 30.5-36.0 [facility] Comment on above: Performed By: #### L [id number] ####Fire Operations Forester: ALEIDA BAEZA ([id number])[facility])[address] [place] [address] MCV (RBC) [Entitic vol] 88.5 fL Normal 77.0-99.0 [facility] Comment on above: Performed By: #### L [id number] ####Fire Operations Forester: ALEIDA BAEZA ([id number])[facility])[address] [place] [address] Monocytes (Bld) [#/Vol] 1.0 10*3/uL High 0.0-0.9 [facility] Comment on above: Performed By: #### L [id number] ####Fire Operations Forester: ALEIDA BAEZA ([id number])[facility])[address] [place] [address] Monocytes/100 WBC (Bld) 11.0 % Normal 5.0-13.0 S [facility] Comment on above: Performed By: #### L [id number] ####Fire Operations Forester: ALEIDA BAEZA ([id number])[facility])[address] [place] [address] NEUTROPHILS ABSOLUTE 7.2 10*3/uL Normal 1.8-7.5 [facility] Comment on above: Performed By: #### L [id number] ####Fire Operations Forester: ALEIDA BAEZA ([id number])[facility])[address] [place] [address] Neutrophils/100 WBC (Bld) 79.6 % Normal 38.0-82.0 [facility] Comment on above: Performed By: #### L [id number] ####Fire Operations Forester: ALEIDA [id number])[facility] ([facility])[address] [place] [address] NRBC 0.0 /100 WBCs Normal 0.0-2.0 [facility] Comment on above: Performed By: #### L [id number] ####Fire Operations Forester: ALEIDA BAEZA ([id number])[facility] ([facility])[address] [place] [address] Platelet mean volume (Bld) [Entitic vol] 9.9 fL Normal 9.0-12.7 [facility] Comment on above: Performed By: #### L [id number] ####Fire Operations Forester: ALEIDA BAEZA ([id number])[facility] ([facility])[address] [place] [address] Platelets (Bld) [#/Vol] 269 10*3/uL Normal 140-440 [facility] Comment on above: Performed By: #### L [id number] ####Fire Operations Forester: ALEIDA BAEZA ([id number])[facility] ([facility])[address] [place] [address] RBC (Bld) [#/Vol] 3.65 10*6/uL Low 4.40-5.90 [facility] Comment on above: Performed By: #### L [id number] ####Fire Operations Forester: ALEIDA BAEZA ([id number])[facility] ([facility])[address] [place] [address] WBC (Bld) [#/Vol] 9.1 10*3/uL Normal 3.6-10.7 [facility] Comment on above: Performed By: #### L [id number] ####Fire Operations Forester: ALEIDA BAEZA ([id number])[facility])[address] [place] [address] Laboratory - Chemistry and C hemistry - challengeon 05-30-2025 Magnesium [Mass/Vol] 1.7 mg/dL 1.6 - 2 .6 mg/dL [facility] MAGNESIUMon 05-30-2025 Magnesium [Mass/Vol] 1.7 mg/dL Normal 1.6-2.6 [facility] Comment on above: Result Comment: ANUPAM Alonso COMMENTS:Higher values can be expected in females during menses. Performed By: #### L [id number], [id number], [id number] ####Fire Operations Forester: ALEIDA BAEZA ([id number])[facility] ([facility])[address] [place] [address] [place] Magnesium [Mass/Vol]on 05-30 [facility] No Panel Informationon 05-30 Interpretation and review of laboratory results Normal [facility] PHOSPHORUSon 05-30-2025 Phosphate [Mass/Vol] 2.8 mg/dL Normal 2.3-4.7 [facility] Comment on above: Performed By: #### L AB15, [id number], [id number] ####Fire Operations Forester: ALEIDA BAEZA ([id number])[facility])[address] [place] [address] [place] Phosphate [Moles/Vol]on 05-04 Phosphate [Mass/Vol] 2.8 mg/dL 2.3 - 4 .7 mg/dL [facility] Progress Noteon 05-30-2025 Progress Note Normal [facility] Progress Note Normal [facility] BASIC METABOLIC PANELon 05-04 Anion gap [Moles/Vol] 6 mmol/L Normal 3-13 [facility] Comment on above: Performed By: #### L AB15, [id number], [id number] ####Fire Operations Forester: ALEIDA BAEZA ([id number])[facility] ([facility])[address] [place] [address] [place] Calcium [Mass/Vol] 8.1 mg/dL Low 8.8-10.0 [facility] Comment on above: Performed By: #### L AB15, [id number], [id number] ####Fire Operations Forester: ALEIDA BAEZA ([id number])[facility])[address] [place] [address] [place] Chloride [Moles/Vol] 96 mmol/L Low 98-107 [facility] Comment on above: Performed By: #### L AB15, [id number], [id number] ####Fire Operations Forester: ALEIDA [id number])[facility] [place] [address] CO2 [Moles/Vol] 26 mmol/L Normal 23-31 [facility] Comment on above: Performed By: #### L AB15, [id number], [id number] ####Fire Operations Forester: ALEIDA BAEZA ([id number])[facility])[address] [place] [address] Creatinine [Mass/Vol] 0.77 mg/dL Normal 0.72-1.25 [facility] Comment on above: Performed By: #### L AB15, [id number], [id number] ####Fire Operations Forester: ALEIDA BAEZA ([id number])[facility])[address] [place] [address] GLOMERULAR FILTRATION RATE ML/MIN/1.73 SQ M.PREDICTED >90.0 Normal >60.0 [facility] Comment on above: Result Comment: Calc ulation based on the Chronic Kidney Disease Epidemiology Collaboration (CKD-EPI) equation refit without adjustment for race Performed By: #### L AB15, [id number], [id number] ####Fire Operations Forester: ALEIDA BAEZA ([id number])[facility])[address] [place] [address] Glucose [Mass/Vol] 111 mg/dL Normal 82-115 [facility] Comment on above: Performed By: #### L AB15, [id number], [id number] ####Fire Operations Forester: ALEIDA BAEZA ([id number])[facility])[address] [place] [address] Potassium [Moles/Vol] 4.0 mmol/L Normal 3.5-5.1 [facility] Comment on above: Result Comment: [facility] potassium values may be up to 0.5 mmol/L lower than serum values. Performed By: #### L AB15, [id number], [id number] ####Fire Operations Forester: ALEIDA BAEZA ([id number])[facility])[address] [place] [address] [place] Sodium [Moles/Vol] 128 mmol/L Low 136-145 [facility] Comment on above: Performed By: #### L AB15, [id number], [id number] ####Fire Operations Forester: ALEIDA BAEZA ([id number])[facility] [place] [address] Urea nitrogen [Mass/Vol] 16 mg/dL Normal 9-23 [facility] Comment on above: Performed By: #### L AB15, [id number], [id number] ####Fire Operations Forester: ALEIDA BAEZA ([id number])[facility] ([facility])[address] [place] [address] Bacteria identified Cx Nom ( Bld)on 05-29-2025 Interpretation and review of laboratory results Normal [facility] Basic metabolic 1998 panelon 05-29-2025 Anion gap [Moles/Vol] 6 mmol/L 3 - 13 mmol/L [facility] Calcium [Mass/Vol] 8.1 mg/dL Low 8.8 - 10. 0 mg/dL [facility] Chloride [Moles/Vol] 96 mmol/L Low 98 - 10 7 mmol/L [facility] CO2 [Moles/Vol] 26 mmol/L 23 - 31 mmol/L [facility] Creatinine [Mass/Vol] 0.77 mg/dL 0.72 - 1.25 mg/dL [facility] GFR/1.73 sq M.predicted (S/P/Bld) [Vol rate/Area] - PINF [facility] Glucose [Mass/Vol] 111 mg/dL 82 - 115 mg/dL [facility] Potassium [Moles/Vol] 4 mmol/L 3.5 - 5.1 mmol/L [facility] Sodium [Moles/Vol] 128 mmol/L Low 136 - 145 mmol/L [facility] Urea nitrogen [Mass/Vol] 16 mg/dL 9 - 23 mg/dL [facility] CBC W Auto Differential pane l (Bld)on 05-29-2025 Basophils (Bld) [#/Vol] 0 10*3/uL 0.0 - 0.2 10*3/uL [facility] Basophils/100 WBC (Bld) 0.5 % 0.0 - 2.0 % [facility] Eosinophils (Bld) [#/Vol] 0.1 10*3/uL 0.0 - 0.5 10*3/uL [facility] Eosinophils/100 WBC (Bld) 1.2 % 0.0 - 6.0 % [facility] Erythrocyte distribution width (RBC) [Ratio] 12.9 % 11.5 - 15.0 % [facility] Hematocrit (Bld) [Volume fraction] 31.9 % Low 40.0 - 52.0 % [facility] Hemoglobin (Bld) [Mass/Vol] 11 g/dL Low 13.0 - 18.0 g/dL [facility] Immature granulocytes (Bld) [#/Vol] 0.1 10*3/uL High NINF - 0.1 10*3/uL [facility] Immature granulocytes/100 WBC (Bld) 1.7 % 0.0 - 2.0 % [facility] Interpretation and review of laboratory results Abnormal [facility] Lymphocytes (Bld) [#/Vol] 0.6 10*3/uL Low 1.0 - 4.3 10*3/uL [facility] Lymphocytes/100 WBC (Bld) 7.2 % Low 15.0 - 45.0 % [facility] MCH (RBC) [Entitic mass] 30.7 pg 26.0 - 34.0 pg [facility] MCHC (RBC) [Mass/Vol] 34.5 % 30.5 - 36.0 % [facility] MCV (RBC) [Entitic vol] 89.1 fL 77.0 - 99.0 fL [facility] Monocytes (Bld) [#/Vol] 0.8 10*3/uL 0.0 - 0.9 10*3/uL [facility] Monocytes/100 WBC (Bld) 9.7 % 5.0 - 13.0 % [facility] Neutrophils (Bld) [#/Vol] 6.6 10*3/uL 1.8 - 7.5 10*3/uL [facility] Neutrophils/100 WBC (Bld) 79.7 % 38.0 - 82.0 % [facility] Nucleated RBC/100 WBC (Bld) [Ratio] 0 % [facility] Platelet mean volume (Bld) [Entitic vol] 9.8 fL 9.0 - 12.7 fL [facility] Platelets (Bld) [#/Vol] 223 10*3/uL 140 - 440 10*3/uL [facility] RBC (Bld) [#/Vol] 3.58 10*6/uL Low 4.40 - 5.9 0 10*6/uL [facility] WBC (Bld) [#/Vol] 8.3 10*3/uL 3.6 - 10.7 10*3/uL [facility] CBC WITH AUTO DIFFERENTIALon 05-29-2025 Basophils (Bld) [#/Vol] 0.0 10*3/uL Normal 0.0-0.2 [facility] Comment on above: Performed By: #### L [id number] ####Fire Operations Forester: ALEIDA BAEZA ([id number])[facility])[address] [place] [address] Basophils/100 WBC (Bld) 0.5 % Normal 0.0-2.0 [facility] Comment on above: Performed By: #### L [id number] ####Fire Operations Forester: ALEIDA BAEZA ([id number])[facility])[address] [place] [address] Eosinophils (Bld) [#/Vol] 0.1 10*3/uL Normal 0.0-0.5 [facility] Comment on above: Performed By: #### L [id number] ####Fire Operations Forester: ALEIDA BAEZA ([id number])[facility])[address] [place] [address] Eosinophils/100 WBC (Bld) 1.2 % Normal 0.0-6.0 [facility] Comment on above: Performed By: #### L [id number] ####Fire Operations Forester: ALEIDA BAEZA ([id number])[facility])[address] [place] [address] Erythrocyte distribution width (RBC) [Ratio] 12.9 % Normal 11.5-15.0 [facility] Comment on above: Performed By: #### L [id number] ####Fire Operations Forester: ALEIDA BAEZA ([id number])[facility])[address] [place] [address] Hematocrit (Bld) [Volume fraction] 31.9 % Low 40.0-52.0 [facility] Comment on above: Performed By: #### L [id number] ####Fire Operations Forester: ALEIDA BAEZA ([id number])[facility])[address] [place] [address] Hemoglobin (Bld) [Mass/Vol] 11.0 g/dL Low 13.0-18.0 [facility] Comment on above: Performed By: #### L [id number] ####Fire Operations Forester: ALEIDA BAEZA ([id number])[facility])[address] [place] [address] IMMATURE GRANS % 1.7 % Normal 0.0-2.0 [facility] Comment on above: Performed By: #### L [id number] ####Fire Operations Forester: ALEIDA BAEZA ([id number])[address] IMMATURE GRANS ABSOLUTE 0.1 10*3/uL High <0.1 [facility] Comment on above: Performed By: #### L [id number] ####Fire Operations Forester: ALEIDA BAEZA ([id number])[facility])[address] [place] [address] Lymphocytes (Bld) [#/Vol] 0.6 10*3/uL Low 1.0-4.3 [facility] Comment on above: Performed By: #### L [id number] ####Fire Operations Forester: ALEIDA BAEZA ([id number])[address] Lymphocytes/100 WBC (Bld) 7.2 % Low 15.0-45.0 [facility] Comment on above: Performed By: #### L [id number] ####Fire Operations Forester: ALEIDA BAEZA ([id number])[address] MCH (RBC) [Entitic mass] 30.7 pg Normal 26.0-34.0 [facility] Comment on above: Performed By: #### L [id number] ####Fire Operations Forester: ALEIDA BAEZA ([id number])[facility] ([facility])[address] [place] [address] MCHC 34.5 % Normal 30.5-36.0 [facility] Comment on above: Performed By: #### L [id number] ####Fire Operations Forester: ALEIDA BAEZA ([id number])[facility] ([facility])[address] [place] [address] MCV (RBC) [Entitic vol] 89.1 fL Normal 77.0-99.0 [facility] Comment on above: Performed By: #### L [id number] ####Fire Operations Forester: ALEIDA BAEZA ([id number])[facility] ([facility])[address] [place] [address] Monocytes (Bld) [#/Vol] 0.8 10*3/uL Normal 0.0-0.9 [facility] Comment on above: Performed By: #### L [id number] ####Fire Operations Forester: ALEIDA BAEZA ([id number])[facility] ([facility])[address] [place] [address] Monocytes/100 WBC (Bld) 9.7 % Normal 5.0-13.0 [facility] Comment on above: Performed By: #### L [id number] ####Fire Operations Forester: ALEIDA BAEZA ([id number])[facility] ([facility])[address] [place] [address] NEUTROPHILS ABSOLUTE 6.6 10*3/uL Normal 1.8-7.5 [facility] Comment on above: Performed By: #### L [id number] ####Fire Operations Forester: ALEIDA BAEZA ([id number])[facility] ([facility])[address] [place] [address] Neutrophils/100 WBC (Bld) 79.7 % Normal 38.0-82.0 [facility] Comment on above: Performed By: #### L [id number] ####Fire Operations Forester: ALEIDA BAEZA ([id number])[facility] ([facility])[address] [place] [address] NRBC 0.0 /100 WBCs Normal 0.0-2.0 [facility] Comment on above: Performed By: #### L [id number] ####Fire Operations Forester: ALEIDA BAEZA ([id number])[facility] ([facility])[address] [place] [address] Platelet mean volume (Bld) [Entitic vol] 9.8 fL Normal 9.0-12.7 [facility] Comment on above: Performed By: #### L [id number] ####Fire Operations Forester: ALEIDA BAEZA ([id number])[facility] ([facility])[address] [place] [address] Platelets (Bld) [#/Vol] 223 10*3/uL Normal 140-440 [facility] Comment on above: Performed By: #### L [id number] ####Fire Operations Forester: ALEIDA BAEZA ([id number])[facility] ([facility])[address] [place] [address] RBC (Bld) [#/Vol] 3.58 10*6/uL Low 4.40-5.90 [facility] Comment on above: Performed By: #### L [id number] ####Fire Operations Forester: ALEIDA BAEZA ([id number])[facility] ([facility])[address] [place] [address] WBC (Bld) [#/Vol] 8.3 10*3/uL Normal 3.6-10.7 [facility] Comment on above: Performed By: #### L [id number] ####Fire Operations Forester: ALEIDA BAEZA ([id number])[facility] ([facility])[address] [place] [address] Laboratory - Chemistry and C hemistry - challengeon 05-29-2025 Magnesium [Mass/Vol] 1.5 mg/dL Low 1.6 - 2 .6 mg/dL [facility] Laboratory - Microbiology an d Antimicrobial susceptibilityon 05-29-2025 Bacteria identified Cx Nom (Bld) No growth at 5 days [facility] MAGNESIUMon 05-29-2025 Magnesium [Mass/Vol] 1.5 mg/dL Low 1.6-2.6 [facility] Comment on above: Result Comment: ANUPAM Alonso COMMENTS:Higher values can be expected in females during menses. Performed By: #### L AB15, [id number], [id number] ####Fire Operations Forester: ALEIDA BAEZA ([id number])[facility] ([facility])[address] [place] [address] Magnesium [Mass/Vol]on 05-29 [facility] No Panel Informationon 05-29 Interpretation and review of laboratory results Abnormal [facility] PHOSPHORUSon 05-29-2025 Phosphate [Mass/Vol] 3.0 mg/dL Normal 2.3-4.7 [facility] Comment on above: Performed By: #### L AB15, [id number], [id number] ####Fire Operations Forester: ALEIDA BAEZA ([id number])[facility])[address] [place] [address] Phosphate [Moles/Vol]on 05-04 Interpretation and review of laboratory results Normal [facility] Phosphate [Mass/Vol] 3 mg/dL 2.3 - 4 .7 mg/dL [facility] Progress Noteon 05-29-2025 Progress Note Normal [facility] Progress Note Normal [facility] [id number] 2025 [id number] Patient agreeable to SNF. Pending choices. Home care to sign off. Please re-consult if a home care need arises. Normal [facility] [id number] 2025 [id number] Pt states he is interested in a SNF. SNF list given. Will need OT to eval and choices. . Normal [facility] [id number] Normal [facility] 36on 2025 36 Normal [facility] BASIC METABOLIC PANELon 05-04 Anion gap [Moles/Vol] 5 mmol/L Normal 3-13 [facility] Comment on above: Performed By: #### L AB15, [id number], [id number] ####Fire Operations Forester: ALEIDA BAEZA ([id number])[facility] ([facility])[address] [place] [address] Calcium [Mass/Vol] 8.1 mg/dL Low 8.8-10.0 [facility] Comment on above: Performed By: #### L AB15, [id number], [id number] ####Fire Operations Forester: ALEIDA BAEZA ([id number])[facility] ([facility])[address] [place] [address] Chloride [Moles/Vol] 99 mmol/L Normal 98-107 [facility] Comment on above: Performed By: #### L AB15, [id number], [id number] ####Fire Operations Forester: ALEIDA BAEZA ([id number])[facility])[address] [place] [address] CO2 [Moles/Vol] 24 mmol/L Normal 23-31 [facility] Comment on above: Performed By: #### L AB15, [id number], [id number] ####Fire Operations Forester: ALEIDA BAEZA ([id number])[facility] ([facility])[address] [place] [address] Creatinine [Mass/Vol] 0.74 mg/dL Normal 0.72-1.25 [facility] Comment on above: Performed By: #### L AB15, [id number], [id number] ####Fire Operations Forester: ALEIDA BAEZA ([id number])[facility] ([facility])[address] [place] [address] GLOMERULAR FILTRATION RATE ML/MIN/1.73 SQ M.PREDICTED >90.0 Normal >60.0 [facility] Comment on above: Result Comment: Calc ulation based on the Chronic Kidney Disease Epidemiology Collaboration (CKD-EPI) equation refit without adjustment for race Performed By: #### L AB15, [id number], [id number] ####Fire Operations Forester: ALEIDA BAEZA ([id number])[facility] ([facility])[address] [place] [address] [place] Glucose [Mass/Vol] 112 mg/dL Normal 82-115 [facility] Comment on above: Performed By: #### L AB15, [id number], [id number] ####Fire Operations Forester: ALEIDA BAEZA ([id number])[facility] [place] [address] Potassium [Moles/Vol] 4.3 mmol/L Normal 3.5-5.1 [facility] Comment on above: Result Comment: [facility] potassium values may be up to 0.5 mmol/L lower than serum values. Performed By: #### L AB15, [id number], [id number] ####Fire Operations Forester: ALEIDA BAEZA ([id number])[facility] [place] [address] Sodium [Moles/Vol] 128 mmol/L Low 136-145 [facility] Comment on above: Performed By: #### L AB15, [id number], [id number] ####Fire Operations Forester: ALEIDA BAEZA ([id number])[facility] ([facility])[address] [place] [address] Urea nitrogen [Mass/Vol] 13 mg/dL Normal 9-23 [facility] Comment on above: Performed By: #### L AB15, [id number], [id number] ####Fire Operations Forester: ALEIDA BAEZA ([id number])[facility] ([facility])[address] [place] [address] Basic metabolic 1998 panelon 2025 Anion gap [Moles/Vol] 5 mmol/L 3 - 13 mmol/L [facility] Calcium [Mass/Vol] 8.1 mg/dL Low 8.8 - 10. 0 mg/dL [facility] Chloride [Moles/Vol] 99 mmol/L 98 - 10 7 mmol/L [facility] CO2 [Moles/Vol] 24 mmol/L 23 - 31 mmol/L [facility] Creatinine [Mass/Vol] 0.74 mg/dL 0.72 - 1.25 mg/dL [facility] GFR/1.73 sq M.predicted (S/P/Bld) [Vol rate/Area] - PINF [facility] Glucose [Mass/Vol] 112 mg/dL 82 - 115 mg/dL [facility] Potassium [Moles/Vol] 4.3 mmol/L 3.5 - 5.1 mmol/L [facility] Sodium [Moles/Vol] 128 mmol/L Low 136 - 145 mmol/L [facility] Urea nitrogen [Mass/Vol] 13 mg/dL 9 - 23 mg/dL [facility] CBC W Auto Differential pane l (Bld)on 2025 Basophils (Bld) [#/Vol] 0 10*3/uL 0.0 - 0.2 10*3/uL [facility] Basophils/100 WBC (Bld) 0.3 % 0.0 - 2.0 % [facility] Eosinophils (Bld) [#/Vol] 0.1 10*3/uL 0.0 - 0.5 10*3/uL [facility] Eosinophils/100 WBC (Bld) 1.3 % 0.0 - 6.0 % [facility] Erythrocyte distribution width (RBC) [Ratio] 13 % 11.5 - 15.0 % [facility] Hematocrit (Bld) [Volume fraction] 31.5 % Low 40.0 - 52.0 % [facility] Hemoglobin (Bld) [Mass/Vol] 10.7 g/dL Low 13.0 - 18.0 g/dL [facility] Immature granulocytes (Bld) [#/Vol] 0.2 10*3/uL High NINF - 0.1 10*3/uL [facility] Immature granulocytes/100 WBC (Bld) 1.6 % 0.0 - 2.0 % [facility] Interpretation and review of laboratory results Abnormal [facility] Lymphocytes (Bld) [#/Vol] 0.7 10*3/uL Low 1.0 - 4.3 10*3/uL [facility] Lymphocytes/100 WBC (Bld) 7.7 % Low 15.0 - 45.0 % [facility] MCH (RBC) [Entitic mass] 30.7 pg 26.0 - 34.0 pg [facility] MCHC (RBC) [Mass/Vol] 34 % 30.5 - 36.0 % [facility] MCV (RBC) [Entitic vol] 90.3 fL 77.0 - 99.0 fL [facility] Monocytes (Bld) [#/Vol] 1 10*3/uL High 0.0 - 0.9 10*3/uL [facility] Monocytes/100 WBC (Bld) 10.2 % 5.0 - 13.0 % [facility] Neutrophils (Bld) [#/Vol] 7.5 10*3/uL 1.8 - 7.5 10*3/uL [facility] Neutrophils/100 WBC (Bld) 78.9 % 38.0 - 82.0 % [facility] Nucleated RBC/100 WBC (Bld) [Ratio] 0 % [facility] Platelet mean volume (Bld) [Entitic vol] 9.9 fL 9.0 - 12.7 fL [facility] Platelets (Bld) [#/Vol] 194 10*3/uL 140 - 440 10*3/uL [facility] RBC (Bld) [#/Vol] 3.49 10*6/uL Low 4.40 - 5.9 0 10*6/uL [facility] WBC (Bld) [#/Vol] 9.4 10*3/uL 3.6 - 10.7 10*3/uL [facility] CBC WITH AUTO DIFFERENTIALon 2025 Basophils (Bld) [#/Vol] 0.0 10*3/uL Normal 0.0-0.2 [facility] Comment on above: Performed By: #### L [id number] ####Fire Operations Forester: ALEIDA BAEZA ([id number])[facility])[address] [place] [address] Basophils/100 WBC (Bld) 0.3 % Normal 0.0-2.0 [facility] Comment on above: Performed By: #### L [id number] ####Fire Operations Forester: ALEIDA BAEZA ([id number])[facility] ([facility])[address] [place] [address] Eosinophils (Bld) [#/Vol] 0.1 10*3/uL Normal 0.0-0.5 [facility] Comment on above: Performed By: #### L [id number] ####Fire Operations Forester: ALEIDA BAEZA ([id number])[facility])[address] [place] [address] [place] Eosinophils/100 WBC (Bld) 1.3 % Normal 0.0-6.0 [facility] Comment on above: Performed By: #### L [id number] ####Fire Operations Forester: ALEIDA BAEZA ([id number])[facility])[address] [place] [address] Erythrocyte distribution width (RBC) [Ratio] 13.0 % Normal 11.5-15.0 [facility] Comment on above: Performed By: #### L [id number] ####Fire Operations Forester: ALEIDA BAEZA ([id number])[facility])[address] [place] [address] Hematocrit (Bld) [Volume fraction] 31.5 % Low 40.0-52.0 [facility] Comment on above: Performed By: #### L [id number] ####Fire Operations Forester: ALEIDA BAEZA ([id number])[address] Hemoglobin (Bld) [Mass/Vol] 10.7 g/dL Low 13.0-18.0 [facility] Comment on above: Performed By: #### L [id number] ####Fire Operations Forester: ALEIDA BAEZA ([id number])[facility])[address] [place] [address] IMMATURE GRANS % 1.6 % Normal 0.0-2.0 [facility] Comment on above: Performed By: #### L [id number] ####Fire Operations Forester: ALEIDA BAEZA ([id number])[address] IMMATURE GRANS ABSOLUTE 0.2 10*3/uL High <0.1 [facility] Comment on above: Performed By: #### L [id number] ####Fire Operations Forester: ALEIDA BAEZA ([id number])[facility])[address] [place] [address] Lymphocytes (Bld) [#/Vol] 0.7 10*3/uL Low 1.0-4.3 [facility] Comment on above: Performed By: #### L [id number] ####Fire Operations Forester: ALEIDA BAEZA ([id number])[facility])[address] [place] [address] Lymphocytes/100 WBC (Bld) 7.7 % Low 15.0-45.0 [facility] Comment on above: Performed By: #### L [id number] ####Fire Operations Forester: ALEIDA BAEZA ([id number])[facility])[address] [place] [address] MCH (RBC) [Entitic mass] 30.7 pg Normal 26.0-34.0 [facility] Comment on above: Performed By: #### L [id number] ####Fire Operations Forester: ALEIDA BAEZA ([id number])[facility])[address] [place] [address] MCHC 34.0 % Normal 30.5-36.0 [facility] Comment on above: Performed By: #### L [id number] ####Fire Operations Forester: ALEIDA BAEZA ([id number])[facility] ([facility])[address] [place] [address] MCV (RBC) [Entitic vol] 90.3 fL Normal 77.0-99.0 [facility] Comment on above: Performed By: #### L [id number] ####Fire Operations Forester: ALEIDA BAEZA ([id number])[facility])[address] [place] [address] Monocytes (Bld) [#/Vol] 1.0 10*3/uL High 0.0-0.9 [facility] Comment on above: Performed By: #### L [id number] ####Fire Operations Forester: ALEIDA BAEZA ([id number])[facility])[address] [place] [address] Monocytes/100 WBC (Bld) 10.2 % Normal 5.0-13.0 [facility] Comment on above: Performed By: #### L [id number] ####Fire Operations Forester: ALEIDA BAEZA ([id number])[facility])[address] [place] [address] NEUTROPHILS ABSOLUTE 7.5 10*3/uL Normal 1.8-7.5 [facility] Comment on above: Performed By: #### L [id number] ####Fire Operations Forester: ALEIDA BAEZA ([id number])[facility])[address] [place] [address] Neutrophils/100 WBC (Bld) 78.9 % Normal 38.0-82.0 [facility] Comment on above: Performed By: #### L [id number] ####Fire Operations Forester: ALEIDA BAEZA ([id number])[facility] ([facility])[address] [place] [address] NRBC 0.0 /100 WBCs Normal 0.0-2.0 [facility] Comment on above: Performed By: #### L [id number] ####Fire Operations Forester: ALEIDA BAEZA ([id number])[facility])[address] [place] [address] Platelet mean volume (Bld) [Entitic vol] 9.9 fL Normal 9.0-12.7 [facility] Comment on above: Performed By: #### L [id number] ####Fire Operations Forester: ALEIDA BAEZA ([id number])[facility] ([facility])[address] [place] [address] Platelets (Bld) [#/Vol] 194 10*3/uL Normal 140-440 [facility] Comment on above: Performed By: #### L [id number] ####Fire Operations Forester: ALEIDA BAEZA ([id number])[facility])[address] [place] [address] RBC (Bld) [#/Vol] 3.49 10*6/uL Low 4.40-5.90 [facility] Comment on above: Performed By: #### L [id number] ####Fire Operations Forester: ALEIDA BAEZA ([id number])[facility])[address] [place] [address] WBC (Bld) [#/Vol] 9.4 10*3/uL Normal 3.6-10.7 [facility] Comment on above: Performed By: #### L [id number] ####Fire Operations Forester: ALEIDA BAEZA ([id number])[facility])[address] [place] [address] Laboratory - Chemistry and C hemistry - challengeon 2025 Magnesium [Mass/Vol] 1.5 mg/dL Low 1.6 - 2 .6 mg/dL [facility] Laboratory - Drug toxicology on 2025 Vancomycin trough [Mass/Vol] 25.9 ug/mL [facility] MAGNESIUMon 2025 Magnesium [Mass/Vol] 1.5 mg/dL Low 1.6-2.6 [facility] Comment on above: Result Comment: ANUPAM R COMMENTS:Higher values can be expected in females during menses. Performed By: #### L AB15, [id number], [id number] ####Fire Operations Forester: ALEIDA BAEZA ([id number])[facility])[address] [place] [address] Magnesium [Mass/Vol]on 05-28 [facility] No Panel Informationon 05-28 Interpretation and review of laboratory results Abnormal [facility] PHOSPHORUSon 2025 Phosphate [Mass/Vol] 2.2 mg/dL Low 2.3-4.7 [facility] Comment on above: Performed By: #### L AB15, [id number], [id number] ####Fire Operations Forester: ALEIDA BAEZA ([id number])[facility])[address] [place] [address] Phosphate [Moles/Vol]on 05-04 Phosphate [Mass/Vol] 2.2 mg/dL Low 2.3 - 4 .7 mg/dL [facility] Progress Noteon 2025 Progress Note Normal [facility] Progress Note Normal [facility] Progress Note Normal [facility] Progress Note Normal [facility] Progress Note Normal [facility] Progress Note Normal [facility] VANCOMYCIN, AUC TIMED DOSING on 2025 VANCOMYCIN, AUC 25.9 ug/mL Normal [facility] Comment on above: Result Comment: ORDE R COMMENTS:Please draw random level at least >2 hours after the end of the last vancomycin infusion, or 30-minutes before next infusion.Toxicity is seen at concentrations >80-100 ug/mLTherapeutic (Peak) range: 20-40Therapeutic (Trough) range: 5-10 Performed By: #### L [id number] ####Fire Operations Forester: ALEIDA BAEZA ([id number])[facility] ([facility])[address] [place] [address] Vancomycin trough [Mass/Vol] on 2025 [facility] [id number] 05-27-2025 [id number] HIPAA compliant mess age left for patient on preferred number. Awaiting call back. Machine [employer] Etcher following case for Discharge Needs. [facility] [id number] 05-27-2025 [id number] [facility] 36on 05-27-2025 36 Checked with [employer] and no auth is needed for Jcode [id number]. Will call [facility] tomorrow to see when we can schedule. Normal [facility] 36 Will check to see if PA is needed, then will call [facility] tomorrow to see about scheduling as they are currently closed. Normal [facility] 36 Last office visit: 09/28/2024 Next office visit: none Normal [facility] BASIC METABOLIC PANELon 05-04 Anion gap [Moles/Vol] 6 mmol/L Normal 3-13 [facility] Comment on above: Performed By: #### L AB15, [id number], [id number] ####Fire Operations Forester: ALEIDA BAEZA ([id number])[facility] ([facility])[address] [place] [address] Calcium [Mass/Vol] 8.5 mg/dL Low 8.8-10.0 [facility] Comment on above: Performed By: #### L AB15, [id number], [id number] ####Fire Operations Forester: ALEIDA BAEZA ([id number])[facility] ([facility])[address] [place] [address] Chloride [Moles/Vol] 101 mmol/L Normal 98-107 [facility] Comment on above: Performed By: #### L AB15, [id number], [id number] ####Fire Operations Forester: ALEIDA BAEZA ([id number])[facility])[address] [place] [address] CO2 [Moles/Vol] 23 mmol/L Normal 23-31 [facility] Comment on above: Performed By: #### L AB15, YED713, [id number] ####Fire Operations Forester: ALEIDA BAEZA ([id number])[facility])[address] [place] [address] Creatinine [Mass/Vol] 0.78 mg/dL Normal 0.72-1.25 [facility] Comment on above: Performed By: #### Araseli AB15, [id number], [id number] ####Fire Operations Forester: ALEIDA BAEZA ([id number])[address] GLOMERULAR FILTRATION RATE ML/MIN/1.73 SQ M.PREDICTED >90.0 Normal >60.0 [facility] Comment on above: Result Comment: Calc ulation based on the Chronic Kidney Disease Epidemiology Collaboration (CKD-EPI) equation refit without adjustment for race Performed By: #### Araseli IRBY, [id number], [id number] ####Fire Operations Forester: ALEIDA BAEZA ([id number])[facility])[address] [place] [address] Glucose [Mass/Vol] 103 mg/dL Normal 82-115 [facility] Comment on above: Performed By: #### L AB15, [id number], [id number] ####Fire Operations Forester: ALEIDA BAEZA ([id number])[facility])[address] [place] [address] [place] Potassium [Moles/Vol] 4.3 mmol/L Normal 3.5-5.1 [facility] Comment on above: Result Comment: [facility] potassium values may be up to 0.5 mmol/L lower than serum values. Performed By: #### L AB15, [id number], [id number] ####Fire Operations Forester: ALEIDA BAEZA ([id number])[facility] [place] [address] Sodium [Moles/Vol] 130 mmol/L Low 136-145 [facility] Comment on above: Performed By: #### L AB15, VIT072, IIG977 ####Fire Operations Forester: ALEIDA BAEZA ([id number])[facility] ([facility])[address] [place] [address] Urea nitrogen [Mass/Vol] 13 mg/dL Normal 9-23 [facility] Comment on above: Performed By: #### L AB15, IGO803, [id number] ####Fire Operations Forester: ALEIDA BAEZA ([id number])[facility])[address] [place] [address] Basic metabolic 1998 panelon 05-27-2025 Anion gap [Moles/Vol] 6 mmol/L 3 - 13 mmol/L [facility] Calcium [Mass/Vol] 8.5 mg/dL Low 8.8 - 10. 0 mg/dL [facility] Chloride [Moles/Vol] 101 mmol/L 98 - 10 7 mmol/L [facility] CO2 [Moles/Vol] 23 mmol/L 23 - 31 mmol/L [facility] Creatinine [Mass/Vol] 0.78 mg/dL 0.72 - 1.25 mg/dL [facility] GFR/1.73 sq M.predicted (S/P/Bld) [Vol rate/Area] - PINF [facility] Glucose [Mass/Vol] 103 mg/dL 82 - 115 mg/dL [facility] Potassium [Moles/Vol] 4.3 mmol/L 3.5 - 5.1 mmol/L [facility] Sodium [Moles/Vol] 130 mmol/L Low 136 - 145 mmol/L [facility] Urea nitrogen [Mass/Vol] 13 mg/dL 9 - 23 mg/dL [facility] CBC W Auto Differential pane l (Bld)on 05-27-2025 Basophils (Bld) [#/Vol] 0 10*3/uL 0.0 - 0.2 10*3/uL [facility] Basophils/100 WBC (Bld) 0.3 % 0.0 - 2.0 % [facility] Eosinophils (Bld) [#/Vol] 0.1 10*3/uL 0.0 - 0.5 10*3/uL [facility] Eosinophils/100 WBC (Bld) 1.1 % 0.0 - 6.0 % [facility] Erythrocyte distribution width (RBC) [Ratio] 12.9 % 11.5 - 15.0 % [facility] Hematocrit (Bld) [Volume fraction] 34.6 % Low 40.0 - 52.0 % [facility] Hemoglobin (Bld) [Mass/Vol] 11.7 g/dL Low 13.0 - 18.0 g/dL [facility] Immature granulocytes (Bld) [#/Vol] 0.2 10*3/uL High NINF - 0.1 10*3/uL [facility] Immature granulocytes/100 WBC (Bld) 1.5 % 0.0 - 2.0 % [facility] Interpretation and review of laboratory results Abnormal [facility] Lymphocytes (Bld) [#/Vol] 0.9 10*3/uL Low 1.0 - 4.3 10*3/uL [facility] Lymphocytes/100 WBC (Bld) 8.7 % Low 15.0 - 45.0 % [facility] MCH (RBC) [Entitic mass] 30.1 pg 26.0 - 34.0 pg [facility] MCHC (RBC) [Mass/Vol] 33.8 % 30.5 - 36.0 % [facility] MCV (RBC) [Entitic vol] 88.9 fL 77.0 - 99.0 fL [facility] Monocytes (Bld) [#/Vol] 1.2 10*3/uL High 0.0 - 0.9 10*3/uL [facility] Monocytes/100 WBC (Bld) 11.6 % 5.0 - 13.0 % [facility] Neutrophils (Bld) [#/Vol] 7.8 10*3/uL High 1.8 - 7.5 10*3/uL [facility] Neutrophils/100 WBC (Bld) 76.8 % 38.0 - 82.0 % [facility] Nucleated RBC/100 WBC (Bld) [Ratio] 0 % [facility] Platelet mean volume (Bld) [Entitic vol] 9.6 fL 9.0 - 12.7 fL [facility] Platelets (Bld) [#/Vol] 175 10*3/uL 140 - 440 10*3/uL [facility] RBC (Bld) [#/Vol] 3.89 10*6/uL Low 4.40 - 5.9 0 10*6/uL [facility] WBC (Bld) [#/Vol] 10.1 10*3/uL 3.6 - 10.7 10*3/uL [facility] CBC WITH AUTO DIFFERENTIALon 05-27-2025 Basophils (Bld) [#/Vol] 0.0 10*3/uL Normal 0.0-0.2 [facility] Comment on above: Performed By: #### L [id number] ####Fire Operations Forester: ALEIDA BAEZA ([id number])[facility])[address] [place] [address] Basophils/100 WBC (Bld) 0.3 % Normal 0.0-2.0 S [facility] Comment on above: Performed By: #### L [id number] ####Fire Operations Forester: ALEIDA BAEZA ([id number])[facility])[address] [place] [address] Eosinophils (Bld) [#/Vol] 0.1 10*3/uL Normal 0.0-0.5 [facility] Comment on above: Performed By: #### L [id number] ####Fire Operations Forester: ALEIDA BAEZA ([id number])[facility])[address] [place] [address] Eosinophils/100 WBC (Bld) 1.1 % Normal 0.0-6.0 [facility] Comment on above: Performed By: #### L [id number] ####Fire Operations Forester: ALEIDA BAEZA ([id number])[facility])[address] [place] [address] Erythrocyte distribution width (RBC) [Ratio] 12.9 % Normal 11.5-15.0 [facility] Comment on above: Performed By: #### L [id number] ####Fire Operations Forester: ALEIDA BAEZA ([id number])[facility])[address] [place] [address] Hematocrit (Bld) [Volume fraction] 34.6 % Low 40.0-52.0 [facility] Comment on above: Performed By: #### L [id number] ####Fire Operations Forester: ALEIDA BAEZA ([id number])[facility])[address] [place] [address] Hemoglobin (Bld) [Mass/Vol] 11.7 g/dL Low 13.0-18.0 [facility] Comment on above: Performed By: #### L [id number] ####Fire Operations Forester: ALEIAD BAEZA ([id number])[facility])[address] [place] [address] IMMATURE GRANS % 1.5 % Normal 0.0-2.0 [facility] Comment on above: Performed By: #### L [id number] ####Fire Operations Forester: ALEIDA BAEZA ([id number])[address] IMMATURE GRANS ABSOLUTE 0.2 10*3/uL High <0.1 [facility] Comment on above: Performed By: #### L [id number] ####Fire Operations Forester: ALEIDA BAEZA ([id number])[facility])[address] [place] [address] Lymphocytes (Bld) [#/Vol] 0.9 10*3/uL Low 1.0-4.3 [facility] Comment on above: Performed By: #### L [id number] ####Fire Operations Forester: ALEIDA BAEZA ([id number])[facility])[address] [place] [address] Lymphocytes/100 WBC (Bld) 8.7 % Low 15.0-45.0 [facility] Comment on above: Performed By: #### L [id number] ####Fire Operations Forester: ALEIDA BAEZA ([id number])[facility])[address] [place] [address] MCH (RBC) [Entitic mass] 30.1 pg Normal 26.0-34.0 [facility] Comment on above: Performed By: #### L [id number] ####Fire Operations Forester: ALEIDA BAEZA ([id number])[facility] ([facility])[address] [place] [address] MCHC 33.8 % Normal 30.5-36.0 [facility] Comment on above: Performed By: #### L [id number] ####Fire Operations Forester: ALEIDA BAEZA ([id number])[facility] ([facility])[address] [place] [address] MCV (RBC) [Entitic vol] 88.9 fL Normal 77.0-99.0 [facility] Comment on above: Performed By: #### L [id number] ####Fire Operations Forester: ALEIDA BAEZA ([id number])[facility] ([facility])[address] [place] [address] Monocytes (Bld) [#/Vol] 1.2 10*3/uL High 0.0-0.9 [facility] Comment on above: Performed By: #### L [id number] ####Fire Operations Forester: ALEIDA BAEZA ([id number])[facility] ([facility])[address] [place] [address] Monocytes/100 WBC (Bld) 11.6 % Normal 5.0-13.0 [facility] Comment on above: Performed By: #### L [id number] ####Fire Operations Forester: ALEIDA BAEZA ([id number])[facility] ([facility])[address] [place] [address] NEUTROPHILS ABSOLUTE 7.8 10*3/uL High 1.8-7.5 [facility] Comment on above: Performed By: #### L [id number] ####Fire Operations Forester: ALEIDA BAEZA ([id number])[facility] ([facility])[address] [place] [address] Neutrophils/100 WBC (Bld) 76.8 % Normal 38.0-82.0 [facility] Comment on above: Performed By: #### L [id number] ####Fire Operations Forester: ALEIDA BAEZA ([id number])[facility] ([facility])[address] [place] [address] NRBC 0.0 /100 WBCs Normal 0.0-2.0 [facility] Comment on above: Performed By: #### L [id number] ####Fire Operations Forester: ALEIDA BAEZA ([id number])[facility])[address] [place] [address] Platelet mean volume (Bld) [Entitic vol] 9.6 fL Normal 9.0-12.7 [facility] Comment on above: Performed By: #### L [id number] ####Fire Operations Forester: ALEIDA BAEZA ([id number])[facility] ([facility])[address] [place] [address] Platelets (Bld) [#/Vol] 175 10*3/uL Normal 140-440 [facility] Comment on above: Performed By: #### L [id number] ####Fire Operations Forester: ALEIDA BAEZA ([id number])[facility] ([facility])[address] [place] [address] RBC (Bld) [#/Vol] 3.89 10*6/uL Low 4.40-5.90 [facility] Comment on above: Performed By: #### L [id number] ####Fire Operations Forester: ALEIDA BAEZA ([id number])[facility] ([facility])[address] [place] [address] WBC (Bld) [#/Vol] 10.1 10*3/uL Normal 3.6-10.7 [facility] Comment on above: Performed By: #### L [id number] ####Fire Operations Forester: ALEIDA BAEZA ([id number])[facility])[address] [place] [address] Laboratory - Chemistry and C hemistry - challengeon 05-27-2025 Magnesium [Mass/Vol] 1.6 mg/dL 1.6 - 2 .6 mg/dL [facility] MAGNESIUMon 05-27-2025 Magnesium [Mass/Vol] 1.6 mg/dL Normal 1.6-2.6 [facility] Comment on above: Result Comment: ORDE R COMMENTS:Higher values can be expected in females during menses. Performed By: #### L AB15, [id number], [id number] ####Fire Operations Forester: ALEIDA BAEZA ([id number])[facility] ([facility])[address] [place] [address] Magnesium [Mass/Vol]on 05-27 Interpretation and review of laboratory results Normal [facility] No Panel Informationon 05-27 Interpretation and review of laboratory results Abnormal [facility] PHOSPHORUSon 05-27-2025 Phosphate [Mass/Vol] 1.9 mg/dL Low 2.3-4.7 [facility] Comment on above: Performed By: #### L AB15, [id number], [id number] ####Fire Operations Forester: ALEIDA BAEZA ([id number])[facility] ([facility])[address] [place] [address] [place] Phosphate [Moles/Vol]on 05-04 Phosphate [Mass/Vol] 1.9 mg/dL Low 2.3 - 4 .7 mg/dL [facility] Progress Noteon 05-27-2025 Progress Note Normal [facility] Progress Note Normal [facility] Progress Note Normal [facility] Progress Note Normal [facility] Progress Note Normal [facility] [id number] 05-26-2025 [id number] Normal [facility] CBC W Auto Differential pane l (Bld)on 05-26-2025 Basophils (Bld) [#/Vol] 0 10*3/uL 0.0 - 0.2 10*3/uL [facility] Basophils/100 WBC (Bld) 0.1 % 0.0 - 2.0 % [facility] Eosinophils (Bld) [#/Vol] 0 10*3/uL 0.0 - 0.5 10*3/uL [facility] Eosinophils/100 WBC (Bld) 0.3 % 0.0 - 6.0 % [facility] Erythrocyte distribution width (RBC) [Ratio] 12.9 % 11.5 - 15.0 % [facility] Hematocrit (Bld) [Volume fraction] 37.7 % Low 40.0 - 52.0 % [facility] Hemoglobin (Bld) [Mass/Vol] 12.7 g/dL Low 13.0 - 18.0 g/dL [facility] Immature granulocytes (Bld) [#/Vol] 0.1 10*3/uL High NINF - 0.1 10*3/uL [facility] Immature granulocytes/100 WBC (Bld) 0.8 % 0.0 - 2.0 % [facility] Interpretation and review of laboratory results Abnormal [facility] Lymphocytes (Bld) [#/Vol] 0.7 10*3/uL Low 1.0 - 4.3 10*3/uL [facility] Lymphocytes/100 WBC (Bld) 7.7 % Low 15.0 - 45.0 % [facility] MCH (RBC) [Entitic mass] 30.5 pg 26.0 - 34.0 pg [facility] MCHC (RBC) [Mass/Vol] 33.7 % 30.5 - 36.0 % [facility] MCV (RBC) [Entitic vol] 90.6 fL 77.0 - 99.0 fL [facility] Monocytes (Bld) [#/Vol] 1.1 10*3/uL High 0.0 - 0.9 10*3/uL [facility] Monocytes/100 WBC (Bld) 11.1 % 5.0 - 13.0 % [facility] Neutrophils (Bld) [#/Vol] 7.5 10*3/uL 1.8 - 7.5 10*3/uL [facility] Neutrophils/100 WBC (Bld) 80 % 38.0 - 82.0 % [facility] Nucleated RBC/100 WBC (Bld) [Ratio] 0 % [facility] Platelet mean volume (Bld) [Entitic vol] 10.2 fL 9.0 - 12.7 fL [facility] Platelets (Bld) [#/Vol] 158 10*3/uL 140 - 440 10*3/uL [facility] RBC (Bld) [#/Vol] 4.16 10*6/uL Low 4.40 - 5.9 0 10*6/uL [facility] WBC (Bld) [#/Vol] 9.4 10*3/uL 3.6 - 10.7 10*3/uL [facility] CBC WITH AUTO DIFFERENTIALon 05-26-2025 Basophils (Bld) [#/Vol] 0.0 10*3/uL Normal 0.0-0.2 [facility] Comment on above: Performed By: #### L [id number] ####Fire Operations Forester: ALEIDA BAEZA ([id number])[facility])[address] [place] [address] Basophils/100 WBC (Bld) 0.1 % Normal 0.0-2.0 [facility] Comment on above: Performed By: #### L [id number] ####Fire Operations Forester: ALEIDA BAEZA ([id number])[facility])[address] [place] [address] Eosinophils (Bld) [#/Vol] 0.0 10*3/uL Normal 0.0-0.5 [facility] Comment on above: Performed By: #### L [id number] ####Fire Operations Forester: ALEIDA BAEZA ([id number])[facility])[address] [place] [address] Eosinophils/100 WBC (Bld) 0.3 % Normal 0.0-6.0 [facility] Comment on above: Performed By: #### L [id number] ####Fire Operations Forester: ALEIDA BAEZA ([id number])[facility])[address] [place] [address] Erythrocyte distribution width (RBC) [Ratio] 12.9 % Normal 11.5-15.0 [facility] Comment on above: Performed By: #### L [id number] ####Fire Operations Forester: ALEIDA BAEZA ([id number])[facility])[address] [place] [address] Hematocrit (Bld) [Volume fraction] 37.7 % Low 40.0-52.0 [facility] Comment on above: Performed By: #### L [id number] ####Fire Operations Forester: ALEIDA BAEZA ([id number])[facility])[address] [place] [address] Hemoglobin (Bld) [Mass/Vol] 12.7 g/dL Low 13.0-18.0 [facility] Comment on above: Performed By: #### L [id number] ####Fire Operations Forester: ALEIDA BAEZA ([id number])[facility])[address] [place] [address] IMMATURE GRANS % 0.8 % Normal 0.0-2.0 [facility] Comment on above: Performed By: #### L [id number] ####Fire Operations Forester: ALEIDA BAEZA ([id number])[facility])[address] [place] [address] IMMATURE GRANS ABSOLUTE 0.1 10*3/uL High <0.1 [facility] Comment on above: Performed By: #### L [id number] ####Fire Operations Forester: ALEIDA BAEZA ([id number])[facility])[address] [place] [address] Lymphocytes (Bld) [#/Vol] 0.7 10*3/uL Low 1.0-4.3 [facility] Comment on above: Performed By: #### L [id number] ####Fire Operations Forester: ALEIDA BAEZA ([id number])[facility])[address] [place] [address] Lymphocytes/100 WBC (Bld) 7.7 % Low 15.0-45.0 [facility] Comment on above: Performed By: #### L [id number] ####Fire Operations Forester: ALEIDA BAEZA ([id number])[facility])[address] [place] [address] MCH (RBC) [Entitic mass] 30.5 pg Normal 26.0-34.0 [facility] Comment on above: Performed By: #### L [id number] ####Fire Operations Forester: ALEIDA BAEZA ([id number])[facility])[address] [place] [address] MCHC 33.7 % Normal 30.5-36.0 [facility] Comment on above: Performed By: #### L [id number] ####Fire Operations Forester: ALEIDA BAEZA ([id number])[facility])[address] [place] [address] MCV (RBC) [Entitic vol] 90.6 fL Normal 77.0-99.0 [facility] Comment on above: Performed By: #### L [id number] ####Fire Operations Forester: ALEIDA BAEZA ([id number])[facility] ([facility])[address] [place] [address] Monocytes (Bld) [#/Vol] 1.1 10*3/uL High 0.0-0.9 [facility] Comment on above: Performed By: #### L [id number] ####Fire Operations Forester: ALEIDA BAEZA ([id number])[facility] ([facility])[address] [place] [address] Monocytes/100 WBC (Bld) 11.1 % Normal 5.0-13.0 [facility] Comment on above: Performed By: #### L [id number] ####Fire Operations Forester: ALEIDA BAEZA ([phone])[facility] ([facility])[address] [place] [address] NEUTROPHILS ABSOLUTE 7.5 10*3/uL Normal 1.8-7.5 [facility] Comment on above: Performed By: #### L [id number] ####Fire Operations Forester: ALEIDA BAEZA ([phone])[facility])[address] [place] [address] Neutrophils/100 WBC (Bld) 80.0 % Normal 38.0-82.0 [facility] Comment on above: Performed By: #### L [id number] ####Fire Operations Forester: ALEIDA BAEZA ([id number])[facility])[address] [place] [address] NRBC 0.0 /100 WBCs Normal 0.0-2.0 [facility] Comment on above: Performed By: #### L [id number] ####Fire Operations Forester: ALEIDA BAEZA ([id number])[facility] ([facility])[address] [place] [address] Platelet mean volume (Bld) [Entitic vol] 10.2 fL Normal 9.0-12.7 [facility] Comment on above: Performed By: #### L [id number] ####Fire Operations Forester: ALEIDA BAEZA ([phone])[facility])[address] [place], [place] [address] Platelets (Bld) [#/Vol] 158 10*3/uL Normal 140-440 [facility] Comment on above: Performed By: #### L [id number] ####Fire Operations Forester: ALEIDA BAEZA ([id number])[facility] ([facility])[address] [place] [address] RBC (Bld) [#/Vol] 4.16 10*6/uL Low 4.40-5.90 [facility] Comment on above: Performed By: #### L [id number] ####Fire Operations Forester: ALEIDA BAEZA ([id number])[facility])[address] [place] [address] WBC (Bld) [#/Vol] 9.4 10*3/uL Normal 3.6-10.7 [facility] Comment on above: Performed By: #### L [id number] ####Fire Operations Forester: ALEIDA BAEZA ([id number])[facility])[address] [place] [address] COMPREHENSIVE METABOLIC PANE Maciel 05-26-2025 Albumin [Mass/Vol] 2.5 g/dL Low 3.4-4.8 [facility] Comment on above: Performed By: #### Araseli AB17, [id number], [id number] ####Fire Operations Forester: ALEIDA BAEZA ([id number])[facility] ([facility])[address] [place] [address] ALP [Catalytic activity/Vol] 92 U/L Normal 40-150 [facility] Comment on above: Performed By: #### L AB17, [id number], [id number] ####Fire Operations Forester: ALEIDA BAEZA ([id number])[facility])[address] [place] [address] ALT [Catalytic activity/Vol] 75 U/L High <40 [facility] Comment on above: Performed By: #### L AB17, [id number], [id number] ####Fire Operations Forester: ALEIDA BAEZA ([id number])[facility] ([facility])[address] [place] [address] Anion gap [Moles/Vol] 6 mmol/L Normal 3-13 [facility] Comment on above: Performed By: #### L AB17, [id number], [id number] ####Fire Operations Forester: ALEIDA BAEZA ([id number])[facility] ([facility])[address] [place] [address] AST [Catalytic activity/Vol] 97 U/L High <34 [facility] Comment on above: Performed By: #### L AB17, GPF793, [id number] ####Fire Operations Forester: ALEIDA BAEZA ([id number])[facility] ([facility])[address] [place] [address] Bilirubin [Mass/Vol] 0.4 mg/dL Normal <1.2 [facility] Comment on above: Performed By: #### L AB17, [id number], [id number] ####Fire Operations Forester: ALEIDA BAEZA ([id number])[facility] ([facility])[address] [place] [address] Calcium [Mass/Vol] 8.8 mg/dL Normal 8.8-10.0 [facility] Comment on above: Performed By: #### L AB17, [id number], ULT804 ####Fire Operations Forester: ALEIDA BAEZA ([id number])[facility] ([facility])[address] [place] [address] [place] Chloride [Moles/Vol] 100 mmol/L Normal 98-107 [facility] Comment on above: Performed By: #### L AB17, [id number], AFG168 ####Fire Operations Forester: ALEIDA BAEZA ([id number])[facility])[address] [place] [address] CO2 [Moles/Vol] 26 mmol/L Normal 23-31 [facility] Comment on above: Performed By: #### L AB17, BPY922, TQM929 ####Fire Operations Forester: ALEIDA BAEZA ([id number])[facility] [place] [address] Creatinine [Mass/Vol] 0.78 mg/dL Normal 0.72-1.25 [facility] Comment on above: Performed By: #### L AB17, BHN518, WON731 ####Fire Operations Forester: ALEIDA BAEZA ([id number])[facility])[address] [place] [address] GLOMERULAR FILTRATION RATE ML/MIN/1.73 SQ M.PREDICTED >90.0 Normal >60.0 [facility] Comment on above: Result Comment: Calc ulation based on the Chronic Kidney Disease Epidemiology Collaboration (CKD-EPI) equation refit without adjustment for race Performed By: #### L AB17, [id number], [id number] ####Fire Operations Forester: ALEIDA BAEZA ([id number])[facility] ([facility])[address] [place] [address] Glucose [Mass/Vol] 81 mg/dL Low 82-115 [facility] Comment on above: Performed By: #### L AB17, OHV642, OSK688 ####Fire Operations Forester: ALEDIA BAEZA ([id number])[facility])[address] [place] [address] Potassium [Moles/Vol] 4.1 mmol/L Normal 3.5-5.1 [facility] Comment on above: Result Comment: [facility] potassium values may be up to 0.5 mmol/L lower than serum values. Performed By: #### L AB17, WTW114, [id number] ####Fire Operations Forester: ALEIDA BAEZA ([id number])[facility] [place] [address] [place] Protein [Mass/Vol] 5.6 g/dL Low 6.4-8.3 [facility] Comment on above: Performed By: #### L AB17, [id number], [id number] ####Fire Operations Forester: ALEIDA BAEZA ([id number])[facility] [place] [address] [place] Sodium [Moles/Vol] 132 mmol/L Low 136-145 [facility] Comment on above: Performed By: #### L AB17, BLR315, JXV668 ####Fire Operations Forester: ALEIDA BAEZA ([id number])[facility] ([facility])[address] [place] [address] Urea nitrogen [Mass/Vol] 16 mg/dL Normal 9-23 [facility] Comment on above: Performed By: #### L AB17, [id number], JXF602 ####Fire Operations Forester: ALEIDA BAEZA ([id number])[facility] ([facility])[address] [place] [address] Comprehensive metabolic 1998 panelon 05-26-2025 Albumin [Mass/Vol] 2.5 g/dL Low 3.4 - 4.8 g/dL [facility] ALP [Catalytic activity/Vol] 92 U/L 40 - 150 U/L [facility] ALT [Catalytic activity/Vol] 75 U/L High NINF - 40 U/L [facility] Anion gap [Moles/Vol] 6 mmol/L 3 - 13 mmol/L [facility] AST [Catalytic activity/Vol] 97 U/L High NINF - 34 U/L [facility] Bilirubin [Mass/Vol] 0.4 [facility] mg/dL [facility] Calcium [Mass/Vol] 8.8 mg/dL 8.8 - 10. 0 mg/dL [facility] Chloride [Moles/Vol] 100 mmol/L 98 - 10 7 mmol/L [facility] CO2 [Moles/Vol] 26 mmol/L 23 - 31 mmol/L [facility] Creatinine [Mass/Vol] 0.78 mg/dL 0.72 - 1.25 mg/dL [facility] GFR/1.73 sq M.predicted (S/P/Bld) [Vol rate/Area] - PINF [facility] Glucose [Mass/Vol] 81 mg/dL Low 82 - 115 mg/dL [facility] Interpretation and review of laboratory results Abnormal [facility] Potassium [Moles/Vol] 4.1 mmol/L 3.5 - 5.1 mmol/L [facility] Protein [Mass/Vol] 5.6 g/dL Low 6.4 - 8.3 g/dL [facility] Sodium [Moles/Vol] 132 mmol/L Low 136 - 145 mmol/L [facility] Urea nitrogen [Mass/Vol] 16 mg/dL 9 - 23 mg/dL [facility] ECG 12-LEADon 05-26-2025 ECG 12-LEAD IMPRESSION: ATRIAL FIBRILLATION Multiple ventricular premature complexes Ventricular paced complexes Compared to ECG 05/25/2025 12:10:51 No significant changes Electronically Signed On 05-26-2025 18:14:43 EDT by Charlie Robbins Normal [facility] HBV surface Ab IA Qnon 05-26 [facility] HEPATITIS B SURFACE ANTIBODY on 05-26-2025 HEPATITIS B VIRUS SURFACE AB <8.0 Normal [facility] Comment on above: Result Comment: ANUPAM R COMMENTS:Interpretation:<8.0 Non-Reactive8.0-11.9 Equivocal>= 12.0 Ab DetectedNote: If an equivocal result is interpreted, an antibody status is unable to be determined. Collect new specimen if clinically indicated. Performed By: #### L [id number], [id number], [id number], [id number] ####Fire Operations Forester: ALEIDA BAEZA ([id number])[facility])[address] [place] [address] HEPATITIS B SURFACE ANTIGENo n 05-26-2025 HEPATITIS B VIRUS SURFACE AG Not detected Normal Not Detected [facility] Comment on above: Performed By: #### L [id number], [id number], [id number], [id number] ####Fire Operations Forester: ALEIDA BAEZA ([id number])[facility])[address] [place] [address] [place] HEPATITIS C ANTIBODYon 05-26 HCV Ab IA Ql Not detected Normal Not Detected [facility] Comment on above: Result Comment: [place] ents with DETECTED Hepatitis C Ab results should have a new specimen submitted for supplemental testing with a Hepatitis C Quantitative RNA assay (viral load), if clinically indicated. Performed By: #### L [id number], [id number], [id number], [id number] ####Fire Operations Forester: ALEIDA BAEZA ([id number])[facility])[address] [place] [address] [place] HIV1,2 COMBO ANTIGEN-ANTIBOD Y SCREENon 05-26-2025 HIV 1,2 COMBO ANTIGEN/ANTIBODY Non-Reactive Normal Nonreactive [facility] [employer] [facility] Comment on above: Result Comment: The specimen was non-reactive for HIV-1 and HIV-2 antibodies and p24 antigen using an FDA-cleared 4th generation HIV test. Based on this non-reactive screen result, further reflexive testing was not indicated and was, therefore, not performed. Performed By: #### L [id number], [id number], [id number], [id number] ####Fire Operations Forester: ALEIDA BAEZA ([id number])[facility])[address] [place] [address] Laboratory - Chemistry and C hemistry - challengeon 05-26-2025 Magnesium [Mass/Vol] 1.8 mg/dL 1.6 - 2 .6 mg/dL [facility] Laboratory - Microbiology an d Antimicrobial susceptibilityon 05-26-2025 HIV 1+2 Ab+HIV1 p24 Ag IA Ql Non-Reactive Nonreactive [facility] [employer] HBV surface Ab IA Qn mIU/mL [facility] [employer] HBV surface Ag IA Ql Not detected Not Detected [facility] [employer] HCV Ab IA Ql Not detected Not Detected [facility] [employer] MAGNESIUMon 05-26-2025 Magnesium [Mass/Vol] 1.8 mg/dL Normal 1.6-2.6 [facility] [employer] [facility] Comment on above: Result Comment: ANUPAM R COMMENTS:Higher values can be expected in females during menses. Performed By: #### L AB17, [id number], QUS956 ####Fire Operations Forester: ALEIDA BAEZA ([id number])[facility] [employer] [facility] [facility] ([employer])[address] [place] [address] Magnesium [Mass/Vol]on 05-26 [facility] No Panel InformationOrdered By: Charlie Robbins on 05-26-2025 P [place] 0 degrees [employer] Work Phone: VA Interval 119 ms [employer] Work Phone: QRS [place] 266 degrees [employer] Phone: QRSD Interval 184 ms [employer] Work Phone: QT Interval 509 ms [employer] Work Phone: QTC Interval 534 ms [facility] [employer] Work Phone: T Wave [place] 134 degrees [employer] Work Phone: [facility] [employer] Work Phone: No Panel Informationon 05-26 CV EPIPHANY [facility] [employer] Interpretation and review of laboratory results Normal [facility] Interpretation and review of laboratory results Normal [facility] Nursing Noteon 05-26-2025 Nursing Note Normal [facility] PHOSPHORUSon 05-26-2025 Phosphate [Mass/Vol] 2.9 mg/dL Normal 2.3-4.7 [facility] Comment on above: Performed By: #### L AB17, [id number], [id number] ####Fire Operations Forester: ALEIDA BAEZA ([id number])[address] Phosphate [Moles/Vol]on 05-04 Phosphate [Mass/Vol] 2.9 mg/dL 2.3 - 4 .7 mg/dL [facility] Progress Noteon 05-26-2025 Progress Note Normal [facility] Progress Note Normal [facility] Progress Note Normal [facility] Progress Note Normal [facility] Progress Note Normal [facility] Progress Note Normal [facility] US Heart Transthoracicon Est. RA Pressure 8 mmHg [facility] IVC Diameter 3.3 cm [facility] RVSP 44 mmHg [facility] [employer] TR Max Velocity 3.02 m/s [facility] [employer] TR Peak Gradient 37 mmHg [facility] [employer] CV CPACS [facility] Vital signsOrdered By: Bree Robbins on 05-26-2025 Heart rate 65 /min bpm [facility] [employer] Work Phone: XR CHEST 1 VIEWon 05-26-2025 XR CHEST 1 VIEW Normal [facility] XR Chest Single viewon 05-26 [facility] Radiology Study observation (narrative) [facility] XR Chest Single viewOrdered By: Toi Willis on 05-26-2025 [facility] [employer] Work Phone: [phone] 05-25-2025 [id number] Normal [facility] Anesthesia Noteon 05-25-2025 Anesthesia Note Normal [facility] Anesthesia Note Normal [facility] Bacteria identified Aer cx N om (Lower resp)Ordered By: Simran Duran on 05-25-2025 Gram Stain Result Moderate Ciliated epithelial cells Abnormal [facility] Gram Stain Result No polymorphonuclear leukocytes seen Abnormal [facility] Gram Stain Result Positive Abnormal [facility] Interpretation and review of laboratory results Abnormal [facility] Bacteria identified Cx Nom ( Bld)on 05-25-2025 Interpretation and review of laboratory results Abnormal [facility] PBP2A Positive [facility] Bacteria identified Cx Nom ( Bld)Ordered By: Harriet Mccabe on 05-25-2025 Interpretation and review of laboratory results Abnormal [facility] PBP2A Positive [facility] CBC W Auto Differential pane l (Bld)on 05-25-2025 Basophils (Bld) [#/Vol] 0 10*3/uL 0.0 - 0.2 10*3/uL [facility] Basophils/100 WBC (Bld) 0.2 % 0.0 - 2.0 % [facility] Eosinophils (Bld) [#/Vol] 0 10*3/uL 0.0 - 0.5 10*3/uL [facility] Eosinophils/100 WBC (Bld) 0.3 % 0.0 - 6.0 % [facility] Erythrocyte distribution width (RBC) [Ratio] 12.9 % 11.5 - 15.0 % [facility] Hematocrit (Bld) [Volume fraction] 36.5 % Low 40.0 - 52.0 % [facility] Hemoglobin (Bld) [Mass/Vol] 12.2 g/dL Low 13.0 - 18.0 g/dL [facility] Immature granulocytes (Bld) [#/Vol] 0.1 10*3/uL High NINF - 0.1 10*3/uL [facility] Immature granulocytes/100 WBC (Bld) 0.7 % 0.0 - 2.0 % [facility] Interpretation and review of laboratory results Abnormal [facility] IPF 6 [facility] Lymphocytes (Bld) [#/Vol] 0.8 10*3/uL Low 1.0 - 4.3 10*3/uL [facility] Lymphocytes/100 WBC (Bld) 7.2 % Low 15.0 - 45.0 % [facility] MCH (RBC) [Entitic mass] 30.3 pg 26.0 - 34.0 pg [facility] MCHC (RBC) [Mass/Vol] 33.4 % 30.5 - 36.0 % [facility] MCV (RBC) [Entitic vol] 90.8 fL 77.0 - 99.0 fL [facility] Monocytes (Bld) [#/Vol] 0.9 10*3/uL 0.0 - 0.9 10*3/uL [facility] Monocytes/100 WBC (Bld) 8 % 5.0 - 13.0 % [facility] Neutrophils (Bld) [#/Vol] 8.8 10*3/uL High 1.8 - 7.5 10*3/uL [facility] Neutrophils/100 WBC (Bld) 83.6 % High 38.0 - 82.0 % [facility] Nucleated RBC/100 WBC (Bld) [Ratio] 0 % [facility] Platelet mean volume (Bld) [Entitic vol] 10.4 fL 9.0 - 12.7 fL [facility] Platelets (Bld) [#/Vol] 145 10*3/uL 140 - 440 10*3/uL [facility] RBC (Bld) [#/Vol] 4.02 10*6/uL Low 4.40 - 5.9 0 10*6/uL [facility] WBC (Bld) [#/Vol] 10.6 10*3/uL 3.6 - 10.7 10*3/uL [facility] CBC WITH AUTO DIFFERENTIALon 05-25-2025 Basophils (Bld) [#/Vol] 0.0 10*3/uL Normal 0.0-0.2 [facility] Comment on above: Performed By: #### L [id number] ####Fire Operations Forester: ALEIDA BAEZA ([id number])[address] Basophils/100 WBC (Bld) 0.2 % Normal 0.0-2.0 S [facility] Comment on above: Performed By: #### L [id number] ####Fire Operations Forester: ALEIDA BAEZA ([id number])[facility] Eosinophils (Bld) [#/Vol] 0.0 10*3/uL Normal 0.0-0.5 [facility] Comment on above: Performed By: #### L [id number] ####Fire Operations Forester: ALEIDA BAEZA ([id number])[address] Eosinophils/100 WBC (Bld) 0.3 % Normal 0.0-6.0 [facility] Comment on above: Performed By: #### L [id number] ####Fire Operations Forester: ALEIDA BAEZA ([id number])[address] Erythrocyte distribution width (RBC) [Ratio] 12.9 % Normal 11.5-15.0 [facility] Comment on above: Performed By: #### L [id number] ####Fire Operations Forester: ALEIDA BAEZA ([id number])[address] Hematocrit (Bld) [Volume fraction] 36.5 % Low 40.0-52.0 [facility] Comment on above: Performed By: #### L [id number] ####Fire Operations Forester: ALEIDA BAEZA ([id number])[address] Hemoglobin (Bld) [Mass/Vol] 12.2 g/dL Low 13.0-18.0 [facility] Comment on above: Performed By: #### L [id number] ####Fire Operations Forester: ALEIDA BAEZA ([id number])[address] IMMATURE GRANS % 0.7 % Normal 0.0-2.0 [facility] Comment on above: Performed By: #### L [id number] ####Fire Operations Forester: ALEIDA BAEZA ([id number])[address] IMMATURE GRANS ABSOLUTE 0.1 10*3/uL High <0.1 [facility] Comment on above: Performed By: #### L [id number] ####Fire Operations Forester: ALEIDA BAEZA ([id number])[facility])[address] [place] [address] IPF 6 Normal [facility] Comment on above: Performed By: #### L [id number] ####Fire Operations Forester: ALEIDA BAEZA ([id number])[facility])[address] [place] [address] Lymphocytes (Bld) [#/Vol] 0.8 10*3/uL Low 1.0-4.3 [facility] Comment on above: Performed By: #### L [id number] ####Fire Operations Forester: ALEIDA BAEZA ([id number])[facility])[address] [place] [address] Lymphocytes/100 WBC (Bld) 7.2 % Low 15.0-45.0 [facility] Comment on above: Performed By: #### L [id number] ####Fire Operations Forester: ALEIDA BAEZA ([id number])[facility])[address] [place] [address] MCH (RBC) [Entitic mass] 30.3 pg Normal 26.0-34.0 [facility] Comment on above: Performed By: #### L [id number] ####Fire Operations Forester: ALEIDA BAEZA ([id number])[address] MCHC 33.4 % Normal 30.5-36.0 [facility] Comment on above: Performed By: #### L [id number] ####Fire Operations Forester: ALEIDA BAEZA ([id number])[address] MCV (RBC) [Entitic vol] 90.8 fL Normal 77.0-99.0 S [facility] Comment on above: Performed By: #### L [id number] ####Fire Operations Forester: ALEIDA BAEZA ([id number])[facility] [place] [address] [place] Monocytes (Bld) [#/Vol] 0.9 10*3/uL Normal 0.0-0.9 [facility] Comment on above: Performed By: #### L [id number] ####Fire Operations Forester: ALEIDA BAEZA ([id number])[facility] ([facility])[address] [place] [address] Monocytes/100 WBC (Bld) 8.0 % Normal 5.0-13.0 [facility] Comment on above: Performed By: #### L [id number] ####Fire Operations Forester: ALEIDA BAEZA ([id number])[facility] ([facility])[address] [place] [address] NEUTROPHILS ABSOLUTE 8.8 10*3/uL High 1.8-7.5 [facility] Comment on above: Performed By: #### L [id number] ####Fire Operations Forester: ALEIDA BAEZA ([id number])[facility] ([facility])[address] [place] [address] Neutrophils/100 WBC (Bld) 83.6 % High 38.0-82.0 [facility] Comment on above: Performed By: #### L [id number] ####Fire Operations Forester: ALEIDA BAEZA ([id number])[facility] ([facility])[address] [place] [address] NRBC 0.0 /100 WBCs Normal 0.0-2.0 [facility] Comment on above: Performed By: #### L [id number] ####Fire Operations Forester: ALEIDA BAEZA ([id number])[facility] ([facility])[address] [place] [address] [place] Platelet mean volume (Bld) [Entitic vol] 10.4 fL Normal 9.0-12.7 [facility] Comment on above: Performed By: #### L [id number] ####Fire Operations Forester: ALEIDA BAEZA ([id number])[facility] ([facility])[address] [place] [address] [place] Platelets (Bld) [#/Vol] 145 10*3/uL Normal 140-440 [facility] Comment on above: Performed By: #### L [id number] ####Fire Operations Forester: ALEIDA BAEZA ([id number])[facility])[address] [place] [address] RBC (Bld) [#/Vol] 4.02 10*6/uL Low 4.40-5.90 [facility] Comment on above: Performed By: #### L [id number] ####Fire Operations Forester: ALEIDA BAEZA ([id number])[facility] ([facility])[address] [place] [address] WBC (Bld) [#/Vol] 10.6 10*3/uL Normal 3.6-10.7 [facility] Comment on above: Performed By: #### L [id number] ####Fire Operations Forester: ALEIDA BAEZA ([id number])[facility])[address] [place] [address] COMPREHENSIVE METABOLIC PANE Maciel 05-25-2025 Albumin [Mass/Vol] 2.7 g/dL Low 3.4-4.8 [facility] Comment on above: Performed By: #### Araseli AB17, [id number], [id number] ####Fire Operations Forester: ALEIDA BAEZA ([id number])[facility])[address] [place] [address] ALP [Catalytic activity/Vol] 100 U/L Normal 40-150 [facility] Comment on above: Performed By: #### Araseli AB17, [id number], BHR220 ####Fire Operations Forester: ALEIDA BAEZA ([id number])[facility])[address] [place] [address] ALT [Catalytic activity/Vol] 69 U/L High <40 [facility] Comment on above: Performed By: #### Araseli AB17, [id number], NIF961 ####Fire Operations Forester: ALEIDA BAEZA ([id number])[facility])[address] [place] [address] Anion gap [Moles/Vol] 9 mmol/L Normal 3-13 [facility] Comment on above: Performed By: #### L AB17, QFR797, [id number] ####Fire Operations Forester: ALEIDA BAEZA ([id number])[facility])[address] [place] [address] AST [Catalytic activity/Vol] 123 U/L High <34 [facility] Comment on above: Performed By: #### L AB17, [id number], [id number] ####Fire Operations Forester: ALEIDA BAEZA ([id number])[facility] ([facility])[address] [place] [address] Bilirubin [Mass/Vol] 0.3 mg/dL Normal <1.2 [facility] Comment on above: Performed By: #### L AB17, [id number], CXU848 ####Fire Operations Forester: ALEIDA BAEZA ([id number])[facility])[address] [place] [address] Calcium [Mass/Vol] 9.3 mg/dL Normal 8.8-10.0 [facility] Comment on above: Performed By: #### L AB17, [id number], AHI044 ####Fire Operations Forester: ALEIDA BAEZA ([id number])[facility])[address] [place] [address] Chloride [Moles/Vol] 98 mmol/L Normal 98-107 [facility] Comment on above: Performed By: #### L AB17, SMB988, AHI574 ####Fire Operations Forester: ALEIDA BAEZA ([id number])[facility])[address] [place] [address] CO2 [Moles/Vol] 21 mmol/L Low 23-31 [facility] Comment on above: Performed By: #### L AB17, IUM167, IIO097 ####Fire Operations Forester: ALEIDA BAEZA ([id number])[facility])[address] [place] [address] Creatinine [Mass/Vol] 0.83 mg/dL Normal 0.72-1.25 [facility] Comment on above: Performed By: #### L AB17, GPB836, YOF617 ####Fire Operations Forester: ALEIDA BAEZA ([id number])[facility])[address] [place] [address] GLOMERULAR FILTRATION RATE ML/MIN/1.73 SQ M.PREDICTED >90.0 Normal >60.0 [facility] Comment on above: Result Comment: Calc ulation based on the Chronic Kidney Disease Epidemiology Collaboration (CKD-EPI) equation refit without adjustment for race Performed By: #### L AB17, [id number], [id number] ####Fire Operations Forester: ALEIDA BAEZA ([id number])[facility])[address] [place] [address] Glucose [Mass/Vol] 106 mg/dL Normal 82-115 [facility] Comment on above: Performed By: #### L AB17, [id number], [id number] ####Fire Operations Forester: ALEIDA BAEZA ([id number])[address] Potassium [Moles/Vol] 3.7 mmol/L Normal 3.5-5.1 [facility] Comment on above: Result Comment: [facility] potassium values may be up to 0.5 mmol/L lower than serum values. Performed By: #### L AB17, [id number], [id number] ####Fire Operations Forester: ALEIDA BAEZA ([id number])[address] Protein [Mass/Vol] 5.9 g/dL Low 6.4-8.3 [facility] Comment on above: Performed By: #### L AB17, [id number], [id number] ####Fire Operations Forester: ALEIDA BAEZA ([id number])[place] [address] [place] Sodium [Moles/Vol] 128 mmol/L Low 136-145 [facility] Comment on above: Performed By: #### L AB17, [id number], [id number] ####Fire Operations Forester: ALEIDA BAEZA ([id number])[facility])[address] [place] [address] [place] Urea nitrogen [Mass/Vol] 19 mg/dL Normal 05-25 [facility] Comment on above: Performed By: #### L AB17, [id number], [id number] ####Fire Operations Forester: ALEIDA BAEZA ([id number])[facility] ([facility])[address] [place] [address] Comprehensive metabolic 1998 panelon 05-25-2025 Albumin [Mass/Vol] 2.7 g/dL Low 3.4 - 4.8 g/dL [facility] ALP [Catalytic activity/Vol] 100 U/L 40 - 150 U/L [facility] ALT [Catalytic activity/Vol] 69 U/L High NINF - 40 U/L [facility] Anion gap [Moles/Vol] 9 mmol/L 3 - 13 mmol/L [facility] AST [Catalytic activity/Vol] 123 U/L [facility] Bilirubin [Mass/Vol] 0.3 mg/dL NINF - 1.2 mg/dL [facility] Calcium [Mass/Vol] 9.3 mg/dL 8.8 - 10. 0 mg/dL [facility] Chloride [Moles/Vol] 98 mmol/L 98 - 10 7 mmol/L [facility] CO2 [Moles/Vol] 21 mmol/L Low 23 - 31 mmol/L [facility] Creatinine [Mass/Vol] 0.83 mg/dL 0.72 - 1.25 mg/dL [facility] GFR/1.73 sq M.predicted (S/P/Bld) [Vol rate/Area] - PINF [facility] Glucose [Mass/Vol] 106 mg/dL 82 - 115 mg/dL [facility] Interpretation and review of laboratory results Abnormal [facility] Potassium [Moles/Vol] 3.7 mmol/L 3.5 - 5.1 mmol/L [facility] Protein [Mass/Vol] 5.9 g/dL Low 6.4 - 8.3 g/dL [facility] Sodium [Moles/Vol] 128 mmol/L Low 136 - 145 mmol/L [facility] Urea nitrogen [Mass/Vol] 19 mg/dL 9 - 23 mg/dL [facility] ECG 12-LEADon 05-25-2025 ECG 12-LEAD IMPRESSION: Atrial fibrillation Ventricular-paced complexes PVCs Electronically Signed On 05-25-2025 13:19:59 EDT by Liam Luanne Normal [facility] Electrophysiology studyon CV CPACS HEMO [facility] - Chemistry and C hemistry - challengeOrdered By: Yaima Lozada on 05-25-2025 Osmolality [Osmolality] 288 mosm/kg [facility] - Chemistry and C hemistry - challengeon 05-25-2025 Magnesium [Mass/Vol] 1.8 mg/dL 1.6 - 2 .6 mg/dL [facility] - Microbiology an d Antimicrobial susceptibilityOrdered By: Simran Duran on 05-25-2025 Bacteria identified Aer cx Nom (Lower resp) Rare respiratory elsa present. [facility] Bacteria identified Aer cx Nom (Lower resp) Few Streptococcus pneumoniae Abnormal [facility] - Microbiology an d Antimicrobial susceptibilityon 05-25-2025 Bacteria identified Cx Nom (Bld) Staphylococcus aureus Critically abnormal [facility] - Microbiology an d Antimicrobial susceptibilityOrdered By: Harriet Mccabe on 05-25-2025 Bacteria identified Cx Nom (Bld) Staphylococcus aureus Critically abnormal [facility] MAGNESIUMon 05-25-2025 Magnesium [Mass/Vol] 1.8 mg/dL Normal 1.6-2.6 [facility] Comment on above: Result Comment: ANUPAM Alonso COMMENTS:Higher values can be expected in females during menses. Performed By: #### L AB17, [id number], [id number] ####Fire Operations Forester: ALEIDA BAEZA ([id number])[address] Magnesium [Mass/Vol]on 05-25 [facility] No Panel InformationOrdered By: Brant Rosas on 05-25-2025 Aortic Sinus Valsalva 4.4 cm [facility] [employer] Work Phone: Aortic Sinus Valsalva Index 2.3 cm/m2 [facility] [employer] Work Phone: Ascending Aorta 3.4 cm [facility] [employer] Work Phone: Ascending Aorta Index 1.78 cm/m2 [facility] [employer] Work Phone: Sinotubular Junction 3.3 cm [facility] [employer] Work Phone: [employer] Work Phone: No Panel Informationon 05-25 CV CPACS Blood Expiration Date S [facility] Blood [facility]piration Date S [facility] Blood Expiration Date S [facility] [employer] Crossmatch interpretation COMP [facility] Dispense Status Released from Crossmatch [facility] Product Blood Type 7300 [facility] Product Blood Type 5100 [facility] PRODUCT CODE [id number] [facility] Unit ABO B [facility] Unit ABO O [facility] Unit Number [id number] [facility] Unit Number [id number] [facility] Unit Number [id number] [facility] Unit Number [id number] [facility] Unit RH Positive [facility] Unit Volume 300 mL [facility] [employer] [facility] [employer] CV EPIPHANY [facility] [employer] Interpretation and review of laboratory results Normal [facility] [employer] No Panel InformationOrdered By: Liam Stroud on 05-25-2025 P [place] 102 degrees [employer] Work Phone: VA Interval 94 ms [employer] Work Phone: QRS [place] -78 degrees [employer] Work Phone: QRSD Interval 195 ms [employer] Work Phone: QT Interval 461 ms [employer] Work Phone: QTC Interval 509 ms [employer] Work Phone: T Wave [place] 123 degrees [employer] Work Phone: [employer] Work Phone: No Panel InformationOrdered By: Yaima Lozada on 05-25-2025 Interpretation and review of laboratory results Normal [facility] [employer] [facility]aby OSMOLALITY, SERUMon 05-25-20 25 OSMOLALITY, SERUM 288 mOsm/kg Normal 280-300 [facility] [employer] [facility] Comment on above: Result Comment: ORDE R COMMENTS:Repeated Performed By: #### L [id number] ####Fire Operations Forester: ALEIDA BAEZA ([id number])[facility] ([facility])[address] [place] [address] [place] PHOSPHORUSon 05-25-2025 Phosphate [Mass/Vol] 3.1 mg/dL Normal 2.3-4.7 [facility] Comment on above: Performed By: #### L AB17, [id number], [id number] ####Fire Operations Forester: ALEIDA BAEZA ([id number])[facility] ([facility])[address] [place] [address] [place] Phosphate [Moles/Vol]on 05-04 Phosphate [Mass/Vol] 3.1 mg/dL 2.3 - 4 .7 mg/dL [facility] Progress Noteon 05-25-2025 Progress Note Normal [facility] Progress Note Normal [facility] Progress Note Normal [facility] Progress Note Normal [facility] Progress Note Normal [facility] Vital signsOrdered By: Jennifer Stroud on 05-25-2025 Heart rate 61 /min bpm [facility] [employer] Work Phone: [phone] 05-24-2025 [id number] Normal [facility] BLOOD CULTUREon 05-24-2025 Bacteria identified Cx Nom (Bld) Normal [facility] Comment on above: Performed By: #### L [id number] ####Fire Operations Forester: ALEIDA BAEZA ([id number])[facility] ([facility])[address] [place] [address] [place] BLOOD TYPE AND SCREEN GELon 05-24-2025 ABO GROUPING B Normal [facility] Comment on above: Performed By: #### L [id number] ####Fire Operations Forester: ALEIDA BAEZA ([id number])[facility] ([facility])[address] [place] [address] [place] RH TYPE IN BLOOD Positive Normal [facility] Comment on above: Performed By: #### L [id number] ####Fire Operations Forester: ALEIDA BAEZA ([id number])[facility] ([facility])[address] [place] [address] [place] Blood type and Crossmatch pa marianna (Bld)on 05-24-2025 ABO group Nom (Bld) B [facility] Blood group antibody screen GEL Ql Negative [facility] D Ag Ql (RBC) Positive [facility] CALCIUM, IONIZEDon CALCIUM IONIZED 4.20 mg/dL Low 4.30-5.20 [facility] Comment on above: Performed By: #### L AB54 ####Fire Operations Forester: ALEIDA BAEZA ([id number])[facility] ([facility])[address] [place] [address] PH, IONIZED CALCIUM 7.50 High 7.31-7.46 [facility] Comment on above: Performed By: #### L AB54 ####Fire Operations Forester: ALEIDA BAEZA ([id number])[facility] ([facility])[address] [place] [address] CBC W Auto Differential pane l (Bld)Ordered By: Tristen Beck on 05-24-2025 Basophils (Bld) [#/Vol] 0 10*3/uL 0.0 - 0.2 10*3/uL [facility] Basophils/100 WBC (Bld) 0.1 % 0.0 - 2.0 % [facility] Eosinophils (Bld) [#/Vol] 0 10*3/uL 0.0 - 0.5 10*3/uL [facility] Eosinophils/100 WBC (Bld) 0.2 % 0.0 - 6.0 % [facility] Erythrocyte distribution width (RBC) [Ratio] 12.5 % 11.5 - 15.0 % [facility] Hematocrit (Bld) [Volume fraction] 35.2 % Low 40.0 - 52.0 % [facility] Hemoglobin (Bld) [Mass/Vol] 12.5 g/dL Low 13.0 - 18.0 g/dL [facility] Immature granulocytes (Bld) [#/Vol] 0.2 10*3/uL High NINF - 0.1 10*3/uL [facility] Immature granulocytes/100 WBC (Bld) 1.1 % 0.0 - 2.0 % [facility] Interpretation and review of laboratory results Abnormal [facility] IPF 4 [facility] Lymphocytes (Bld) [#/Vol] 0.8 10*3/uL Low 1.0 - 4.3 10*3/uL [facility] Lymphocytes/100 WBC (Bld) 5.2 % Low 15.0 - 45.0 % [facility] MCH (RBC) [Entitic mass] 31 pg 26.0 - 34.0 pg [facility] MCHC (RBC) [Mass/Vol] 35.5 % 30.5 - 36.0 % [facility] MCV (RBC) [Entitic vol] 87.3 fL 77.0 - 99.0 fL [facility] Monocytes (Bld) [#/Vol] 0.8 10*3/uL 0.0 - 0.9 10*3/uL [facility] Monocytes/100 WBC (Bld) 5 % 5.0 - 13.0 % [facility] Neutrophils (Bld) [#/Vol] 13.3 10*3/uL High 1.8 - 7.5 10*3/uL [facility] Neutrophils/100 WBC (Bld) 88.4 % High 38.0 - 82.0 % [facility] Nucleated RBC/100 WBC (Bld) [Ratio] 0 % [facility] Platelet mean volume (Bld) [Entitic vol] 10.1 fL 9.0 - 12.7 fL [facility] Platelets (Bld) [#/Vol] 143 10*3/uL 140 - 440 10*3/uL [facility] RBC (Bld) [#/Vol] 4.03 10*6/uL Low 4.40 - 5.9 0 10*6/uL [facility] WBC (Bld) [#/Vol] 15 10*3/uL High 3.6 - 10.7 10*3/uL [facility] CBC WITH AUTO DIFFERENTIALon 05-24-2025 Basophils (Bld) [#/Vol] 0.0 10*3/uL Normal 0.0-0.2 [facility] Comment on above: Performed By: #### L [id number] ####Fire Operations Forester: ALEIDA BAEZA ([id number])[address] Basophils/100 WBC (Bld) 0.1 % Normal 0.0-2.0 [facility] Comment on above: Performed By: #### L [id number] ####Fire Operations Forester: ALEIDA BAEZA ([id number])[facility])[address] [place] [address] Eosinophils (Bld) [#/Vol] 0.0 10*3/uL Normal 0.0-0.5 [facility] Comment on above: Performed By: #### L [id number] ####Fire Operations Forester: ALEIDA BAEZA ([id number])[facility])[address] [place] [address] Eosinophils/100 WBC (Bld) 0.2 % Normal 0.0-6.0 [facility] Comment on above: Performed By: #### L [id number] ####Fire Operations Forester: ALEIDA BAEZA ([id number])[address] Erythrocyte distribution width (RBC) [Ratio] 12.5 % Normal 11.5-15.0 [facility] Comment on above: Performed By: #### L [id number] ####Fire Operations Forester: ALEIDA BAEZA ([id number])[facility])[address] [place] [address] Hematocrit (Bld) [Volume fraction] 35.2 % Low 40.0-52.0 [facility] Comment on above: Performed By: #### L [id number] ####Fire Operations Forester: ALEIDA BAEZA ([id number])[address] Hemoglobin (Bld) [Mass/Vol] 12.5 g/dL Low 13.0-18.0 [facility] Comment on above: Performed By: #### L [id number] ####Fire Operations Forester: ALEIDA BAEZA ([id number])[facility])[address] [place] [address] IMMATURE GRANS % 1.1 % Normal 0.0-2.0 [facility] Comment on above: Performed By: #### L [id number] ####Fire Operations Forester: ALEIDA BAEZA ([id number])[address] IMMATURE GRANS ABSOLUTE 0.2 10*3/uL High <0.1 [facility] Comment on above: Performed By: #### L [id number] ####Fire Operations Forester: ALEIDA BAEZA ([id number])[facility])[address] [place] [address] IPF 4 Normal [facility] Comment on above: Performed By: #### L [id number] ####Fire Operations Forester: ALEIDA BAEZA ([id number])[facility])[address] [place] [address] Lymphocytes (Bld) [#/Vol] 0.8 10*3/uL Low 1.0-4.3 [facility] Comment on above: Performed By: #### L [id number] ####Fire Operations Forester: ALEIDA BAEZA ([id number])[address] Lymphocytes/100 WBC (Bld) 5.2 % Low 15.0-45.0 [facility] Comment on above: Performed By: #### L [id number] ####Fire Operations Forester: ALEIDA BAEZA ([id number])[facility])[address] [place] [address] MCH (RBC) [Entitic mass] 31.0 pg Normal 26.0-34.0 [facility] Comment on above: Performed By: #### L [id number] ####Fire Operations Forester: ALEIDA BAEZA ([id number])[address] MCHC 35.5 % Normal 30.5-36.0 [facility] Comment on above: Performed By: #### L [id number] ####Fire Operations Forester: ALEIDA BAEZA ([id number])[address] MCV (RBC) [Entitic vol] 87.3 fL Normal 77.0-99.0 [facility] Comment on above: Performed By: #### L [id number] ####Fire Operations Forester: ALEIDA BAEZA ([id number])[facility] ([facility])[address] [place] [address] Monocytes (Bld) [#/Vol] 0.8 10*3/uL Normal 0.0-0.9 [facility] Comment on above: Performed By: #### L [id number] ####Fire Operations Forester: ALEIDA BAEZA ([id number])[facility] ([facility])[address] [place] [address] Monocytes/100 WBC (Bld) 5.0 % Normal 5.0-13.0 S [facility] Comment on above: Performed By: #### L [id number] ####Fire Operations Forester: ALEIDA BAEZA ([id number])[facility] ([facility])[address] [place] [address] NEUTROPHILS ABSOLUTE 13.3 10*3/uL High 1.8-7.5 [facility] Comment on above: Performed By: #### L [id number] ####Fire Operations Forester: ALEIDA BAEZA ([id number])[facility] ([facility])[address] [place] [address] Neutrophils/100 WBC (Bld) 88.4 % High 38.0-82.0 [facility] Comment on above: Performed By: #### L [id number] ####Fire Operations Forester: ALEIDA BAEZA ([id number])[facility] ([facility])[address] [place] [address] NRBC 0.0 /100 WBCs Normal 0.0-2.0 [facility] Comment on above: Performed By: #### L [id number] ####Fire Operations Forester: ALEIDA BAEZA ([id number])[facility] ([facility])[address] [place] [address] Platelet mean volume (Bld) [Entitic vol] 10.1 fL Normal 9.0-12.7 [facility] Comment on above: Performed By: #### L [id number] ####Fire Operations Forester: ALEIDA BAEZA ([id number])[facility] ([facility])[address] [place] [address] Platelets (Bld) [#/Vol] 143 10*3/uL Normal 140-440 [facility] Comment on above: Performed By: #### L [id number] ####Fire Operations Forester: ALEIDA BAEZA ([id number])[facility])[address] [place] [address] RBC (Bld) [#/Vol] 4.03 10*6/uL Low 4.40-5.90 [facility] Comment on above: Performed By: #### L [id number] ####Fire Operations Forester: ALEIDA BAEZA ([id number])[facility])[address] [place] [address] WBC (Bld) [#/Vol] 15.0 10*3/uL High 3.6-10.7 [facility] Comment on above: Performed By: #### L [id number] ####Fire Operations Forester: ALEIDA BAEZA ([id number])[facility] ([facility])[address] [place] [address] COMPREHENSIVE METABOLIC PANE Maciel 05-24-2025 Albumin [Mass/Vol] 2.7 g/dL Low 3.4-4.8 [facility] Comment on above: Performed By: #### L AB17, [id number], [id number] ####Fire Operations Forester: ALEIDA BAEZA ([id number])[facility])[address] [place] [address] ALP [Catalytic activity/Vol] 96 U/L Normal 40-150 [facility] Comment on above: Performed By: #### L AB17, [id number], [id number] ####Fire Operations Forester: ALEIDA BAEZA ([id number])[facility])[address] [place] [address] ALT [Catalytic activity/Vol] 20 U/L Normal <40 [facility] Comment on above: Performed By: #### L AB17, [id number], [id number] ####Fire Operations Forester: ALEIDA BAEZA ([id number])[facility])[address] [place] [address] Anion gap [Moles/Vol] 9 mmol/L Normal 3-13 [facility] Comment on above: Performed By: #### L AB17, [id number], [id number] ####Fire Operations Forester: ALEIDA BAEZA ([id number])[facility] ([facility])[address] [place] [address] AST [Catalytic activity/Vol] 56 U/L High <34 [facility] Comment on above: Performed By: #### L AB17, [id number], [id number] ####Fire Operations Forester: ALEIDA BAEZA ([id number])[facility] ([facility])[address] [place] [address] Bilirubin [Mass/Vol] 0.5 mg/dL Normal <1.2 [facility] Comment on above: Performed By: #### L AB17, [id number], [id number] ####Fire Operations Forester: ALEIDA BAEZA ([id number])[facility] ([facility])[address] [place] [address] Calcium [Mass/Vol] 9.3 mg/dL Normal 8.8-10.0 [facility] Comment on above: Performed By: #### Araseli AB17, [id number], [id number] ####Fire Operations Forester: ALEIDA BAEZA ([id number])[facility] ([facility])[address] [place] [address] [place] Chloride [Moles/Vol] 98 mmol/L Normal 98-107 [facility] Comment on above: Performed By: #### L AB17, [id number], [id number] ####Fire Operations Forester: ALEIDA BAEZA ([id number])[facility] ([facility])[address] [place] [address] [place] CO2 [Moles/Vol] 19 mmol/L Low 23-31 [facility] Comment on above: Performed By: #### L AB17, [id number], [id number] ####Fire Operations Forester: ALEIDA BAEZA ([id number])[facility] ([facility])[address] [place] [address] [place] Creatinine [Mass/Vol] 0.78 mg/dL Normal 0.72-1.25 [facility] Comment on above: Performed By: #### L AB17, PCZ939, [id number] ####Fire Operations Forester: ALEIDA BAEZA ([id number])[address] GLOMERULAR FILTRATION RATE ML/MIN/1.73 SQ M.PREDICTED >90.0 Normal >60.0 [facility] Comment on above: Result Comment: Calc ulation based on the Chronic Kidney Disease Epidemiology Collaboration (CKD-EPI) equation refit without adjustment for race Performed By: #### L AB17, [id number], [id number] ####Fire Operations Forester: ALEIDA BAEZA ([id number])[address] Glucose [Mass/Vol] 98 mg/dL Normal 82-115 [facility] Comment on above: Performed By: #### L AB17, [id number], [id number] ####Fire Operations Forester: ALEIDA BAEZA ([id number])[address] Potassium [Moles/Vol] 4.0 mmol/L Normal 3.5-5.1 [facility] Comment on above: Result Comment: [facility] potassium values may be up to 0.5 mmol/L lower than serum values. Performed By: #### L AB17, PIP947, [id number] ####Fire Operations Forester: ALEIDA BAEZA ([id number])[address] Protein [Mass/Vol] 5.9 g/dL Low 6.4-8.3 [facility] Comment on above: Performed By: #### L AB17, DBR737, [id number] ####Fire Operations Forester: ALEIDA BAEZA ([id number])[address] Sodium [Moles/Vol] 126 mmol/L Low 136-145 [facility] Comment on above: Performed By: #### L AB17, [id number], [id number] ####Fire Operations Forester: ALEIDA BAEZA ([id number])[facility] ([facility])[address] [place] [address] Urea nitrogen [Mass/Vol] 22 mg/dL Normal 9- [facility] Comment on above: Performed By: #### L AB17, STI700, [id number] ####Fire Operations Forester: ALEIDA BAEZA ([id number])[facility] ([facility])[address] [place] [address] Calcium.ionized [Moles/Vol]O rdered By: Giovana Chiu on 05-24-2025 Calcium.ionized (Bld) [Moles/Vol] 4.2 mg/dL Low 4.30 - 5.20 mg/dL [facility] Interpretation and review of laboratory results Abnormal [facility] PH, IONIZED CALCIUM 7.5 High 7.31 - 7.46 [facility] Comprehensive metabolic 1998 panelon 05-24-2025 Albumin [Mass/Vol] 2.7 g/dL Low 3.4 - 4.8 g/dL [facility] ALP [Catalytic activity/Vol] 96 U/L 40 - 150 U/L [facility] ALT [Catalytic activity/Vol] 20 U/L NINF - 40 U/L [facility] Anion gap [Moles/Vol] 9 mmol/L 3 - 13 mmol/L [facility] AST [Catalytic activity/Vol] 56 U/L High NINF - 34 U/L [facility] Bilirubin [Mass/Vol] 0.5 mg/dL NINF - 1.2 mg/dL [facility] Calcium [Mass/Vol] 9.3 mg/dL 8.8 - 10. 0 mg/dL [facility] Chloride [Moles/Vol] 98 mmol/L 98 - 10 7 mmol/L [facility] CO2 [Moles/Vol] 19 mmol/L Low 23 - 31 mmol/L [facility] Creatinine [Mass/Vol] 0.78 mg/dL 0.72 - 1.25 mg/dL [facility] GFR/1.73 sq M.predicted (S/P/Bld) [Vol rate/Area] - PINF [facility] Glucose [Mass/Vol] 98 mg/dL 82 - 115 mg/dL [facility] Interpretation and review of laboratory results Abnormal [facility] Potassium [Moles/Vol] 4 mmol/L 3.5 - 5.1 mmol/L [facility] Protein [Mass/Vol] 5.9 g/dL Low 6.4 - 8.3 g/dL [facility] Sodium [Moles/Vol] 126 mmol/L Low 136 - 145 mmol/L [facility] Urea nitrogen [Mass/Vol] 22 mg/dL 9 - 23 mg/dL [facility] Consulton 05-24-2025 Consult Normal [facility] - Chemistry and C hemistry - challengeon 05-24-2025 Magnesium [Mass/Vol] 1.7 mg/dL 1.6 - 2 .6 mg/dL [facility] - Drug toxicology on 05-24-2025 Vancomycin trough [Mass/Vol] 27 ug/mL [facility] MAGNESIUMon 05-24-2025 Magnesium [Mass/Vol] 1.7 mg/dL Normal 1.6-2.6 [facility] Comment on above: Result Comment: ANUPAM Alonso COMMENTS:Higher values can be expected in females during menses. Performed By: #### L AB17, QOS167, [id number] ####Fire Operations Forester: ALEIDA BAEZA ([id number])[facility] ([facility])[address] [place] [address] Magnesium [Mass/Vol]on 05-24 Interpretation and review of laboratory results Normal [facility] No Panel Informationon 05-24 [facility] PHOSPHORUSon 05-24-2025 Phosphate [Mass/Vol] 2.2 mg/dL Low 2.3-4.7 [facility] Comment on above: Performed By: #### L AB17, [id number], [id number] ####Fire Operations Forester: ALEIDA BAEZA ([id number])[facility])[address] [place] [address] Phosphate [Moles/Vol]on 05-04 Interpretation and review of laboratory results Abnormal [facility] Phosphate [Mass/Vol] 2.2 mg/dL Low 2.3 - 4 .7 mg/dL [facility] Progress Noteon 05-24-2025 Progress Note Normal [facility] Progress Note Normal [facility] Progress Note Normal [facility] Progress Note Normal [facility] Progress Note Normal [facility] VANCOMYCIN, AUC TIMED DOSING on 05-24-2025 VANCOMYCIN, AUC 27.0 ug/mL Normal [facility] Comment on above: Result Comment: ANUPAM R COMMENTS:Please draw random level at least >2 hours after the end of the last vancomycin infusion, or 30-minutes before next infusion.Toxicity is seen at concentrations >80-100 ug/mLTherapeutic (Peak) range: 20-40Therapeutic (Trough) range: 5-10 Performed By: #### L AB39 ####Fire Operations Forester: ALEIDA BAEZA ([id number])[facility])[address] [place] [address] Vancomycin trough [Mass/Vol] on 05-24-2025 [facility] Bacteria identified Cx Nom ( Bld)Ordered By: Roger Dunn on 05-23-2025 Interpretation and review of laboratory results Abnormal [facility] Bacteria identified Cx Nom ( Bld)on 05-23-2025 PBP2A Positive [facility] CALCIUM, IONIZEDon CALCIUM IONIZED 4.70 mg/dL Normal 4.30-5.20 [facility] Comment on above: Performed By: #### L AB54 ####Fire Operations Forester: ALEIDA BAEZA ([id number])[address] PH, IONIZED CALCIUM 7.39 Normal 7.31-7.46 [facility] Comment on above: Performed By: #### L AB54 ####Fire Operations Forester: ALEIDA BAEZA ([id number])[address] CBC W Auto Differential pane l (Bld)on 05-23-2025 Basophils (Bld) [#/Vol] 0 10*3/uL 0.0 - 0.2 10*3/uL [facility] Basophils/100 WBC (Bld) 0.1 % 0.0 - 2.0 % [facility] Eosinophils (Bld) [#/Vol] 0 10*3/uL 0.0 - 0.5 10*3/uL [facility] Eosinophils/100 WBC (Bld) 0.2 % 0.0 - 6.0 % [facility] Erythrocyte distribution width (RBC) [Ratio] 12.9 % 11.5 - 15.0 % [facility] Hematocrit (Bld) [Volume fraction] 35.6 % Low 40.0 - 52.0 % [facility] Hemoglobin (Bld) [Mass/Vol] 12.2 g/dL Low 13.0 - 18.0 g/dL [facility] Immature granulocytes (Bld) [#/Vol] 0.2 10*3/uL High NINF - 0.1 10*3/uL [facility] Immature granulocytes/100 WBC (Bld) 1 % 0.0 - 2.0 % [facility] Interpretation and review of laboratory results Abnormal [facility] Lymphocytes (Bld) [#/Vol] 0.4 10*3/uL Low 1.0 - 4.3 10*3/uL [facility] Lymphocytes/100 WBC (Bld) 2.2 % Low 15.0 - 45.0 % [facility] MCH (RBC) [Entitic mass] 30.6 pg 26.0 - 34.0 pg [facility] MCHC (RBC) [Mass/Vol] 34.3 % 30.5 - 36.0 % [facility] MCV (RBC) [Entitic vol] 89.2 fL 77.0 - 99.0 fL [facility] Monocytes (Bld) [#/Vol] 1 10*3/uL High 0.0 - 0.9 10*3/uL [facility] Monocytes/100 WBC (Bld) 5.3 % 5.0 - 13.0 % [facility] Neutrophils (Bld) [#/Vol] 17.9 10*3/uL High 1.8 - 7.5 10*3/uL [facility] Neutrophils/100 WBC (Bld) 91.2 % High 38.0 - 82.0 % [facility] Nucleated RBC/100 WBC (Bld) [Ratio] 0 % [facility] Platelet mean volume (Bld) [Entitic vol] 10.2 fL 9.0 - 12.7 fL [facility] Platelets (Bld) [#/Vol] 151 10*3/uL 140 - 440 10*3/uL [facility] RBC (Bld) [#/Vol] 3.99 10*6/uL Low 4.40 - 5.9 0 10*6/uL [facility] WBC (Bld) [#/Vol] 19.6 10*3/uL High 3.6 - 10.7 10*3/uL [facility] CBC WITH AUTO DIFFERENTIALon 05-23-2025 Basophils (Bld) [#/Vol] 0.0 10*3/uL Normal 0.0-0.2 [facility] Comment on above: Performed By: #### L [id number] ####Fire Operations Forester: ALEIDA BAEZA ([id number])[facility])[address] [place] [address] Basophils/100 WBC (Bld) 0.1 % Normal 0.0-2.0 [facility] Comment on above: Performed By: #### L [id number] ####Fire Operations Forester: ALEIDA BAEZA ([id number])[facility])[address] [place] [address] Eosinophils (Bld) [#/Vol] 0.0 10*3/uL Normal 0.0-0.5 [facility] Comment on above: Performed By: #### L [id number] ####Fire Operations Forester: ALEIDA BAEZA ([id number])[facility])[address] [place] [address] Eosinophils/100 WBC (Bld) 0.2 % Normal 0.0-6.0 [facility] Comment on above: Performed By: #### L [id number] ####Fire Operations Forester: ALEIDA BAEZA ([id number])[facility])[address] [place] [address] Erythrocyte distribution width (RBC) [Ratio] 12.9 % Normal 11.5-15.0 [facility] Comment on above: Performed By: #### L [id number] ####Fire Operations Forester: ALEIDA [id number])[facility])[address] [place] [address] Hematocrit (Bld) [Volume fraction] 35.6 % Low 40.0-52.0 [facility] Comment on above: Performed By: #### L [id number] ####Fire Operations Forester: ALEIDA [id number])[facility])[address] [place] [address] Hemoglobin (Bld) [Mass/Vol] 12.2 g/dL Low 13.0-18.0 [facility] Comment on above: Performed By: #### L [id number] ####Fire Operations Forester: ALEIDA BAEZA ([id number])[facility])[address] [place] [address] IMMATURE GRANS % 1.0 % Normal 0.0-2.0 [facility] Comment on above: Performed By: #### L [id number] ####Fire Operations Forester: ALEIDA BAEZA ([id number])[facility])[address] [place] [address] IMMATURE GRANS ABSOLUTE 0.2 10*3/uL High <0.1 [facility] Comment on above: Performed By: #### L [id number] ####Fire Operations Forester: ALEIDA BAEZA ([id number])[facility])[address] [place] [address] Lymphocytes (Bld) [#/Vol] 0.4 10*3/uL Low 1.0-4.3 [facility] Comment on above: Performed By: #### L [id number] ####Fire Operations Forester: ALEIDA BAEZA ([id number])[facility])[address] [place] [address] Lymphocytes/100 WBC (Bld) 2.2 % Low 15.0-45.0 [facility] Comment on above: Performed By: #### L [id number] ####Fire Operations Forester: ALEIDA BAEZA ([id number])[facility])[address] [place] [address] MCH (RBC) [Entitic mass] 30.6 pg Normal 26.0-34.0 [facility] Comment on above: Performed By: #### L [id number] ####Fire Operations Forester: ALEIDA BAEZA ([id number])[facility])[address] [place] [address] MCHC 34.3 % Normal 30.5-36.0 [facility] Comment on above: Performed By: #### L [id number] ####Fire Operations Forester: ALEIDA BAEZA ([id number])[facility])[address] [place] [address] MCV (RBC) [Entitic vol] 89.2 fL Normal 77.0-99.0 [facility] Comment on above: Performed By: #### L [id number] ####Fire Operations Forester: ALEIDA BAEZA ([id number])[facility])[address] [place] [address] Monocytes (Bld) [#/Vol] 1.0 10*3/uL High 0.0-0.9 [facility] Comment on above: Performed By: #### L [id number] ####Fire Operations Forester: ALEIDA BAEZA ([id number])[facility])[address] [place] [address] Monocytes/100 WBC (Bld) 5.3 % Normal 5.0-13.0 [facility] Comment on above: Performed By: #### L [id number] ####Fire Operations Forester: ALEIDA BAEZA ([id number])[facility])[address] [place] [address] NEUTROPHILS ABSOLUTE 17.9 10*3/uL High 1.8-7.5 [facility] Comment on above: Performed By: #### L [id number] ####Fire Operations Forester: ALEIDA BAEZA ([id number])[facility])[address] [place] [address] Neutrophils/100 WBC (Bld) 91.2 % High 38.0-82.0 [facility] Comment on above: Performed By: #### L [id number] ####Fire Operations Forester: ALEIDA BAEZA ([id number])[facility])[address] [place] [address] NRBC 0.0 /100 WBCs Normal 0.0-2.0 [facility] Comment on above: Performed By: #### L [id number] ####Fire Operations Forester: ALEIDA BAEZA ([id number])[facility] ([facility])[address] [place] [address] Platelet mean volume (Bld) [Entitic vol] 10.2 fL Normal 9.0-12.7 [facility] Comment on above: Performed By: #### L [id number] ####Fire Operations Forester: ALEIDA BAEZA ([id number])[facility] ([facility])[address] [place] [address] Platelets (Bld) [#/Vol] 151 10*3/uL Normal 140-440 [facility] Comment on above: Performed By: #### L [id number] ####Fire Operations Forester: ALEIDA BAEZA ([id number])[facility] ([facility])[address] [place] [address] RBC (Bld) [#/Vol] 3.99 10*6/uL Low 4.40-5.90 [facility] Comment on above: Performed By: #### L [id number] ####Fire Operations Forester: ALEIDA BAEZA ([id number])[facility] ([facility])[address] [place] [address] WBC (Bld) [#/Vol] 19.6 10*3/uL High 3.6-10.7 [facility] Comment on above: Performed By: #### L [id number] ####Fire Operations Forester: ALEIDA BAEZA ([id number])[facility] ([facility])[address] [place] [address] COMPREHENSIVE METABOLIC PANE Maciel 05-23-2025 Albumin [Mass/Vol] 2.7 g/dL Low 3.4-4.8 [facility] Comment on above: Performed By: #### L AB113, [id number], LAB17 ####Fire Operations Forester: ALEIDA BAEZA ([id number])[facility] ([facility])[address] [place] [address] ALP [Catalytic activity/Vol] 90 U/L Normal 40-150 [facility] Comment on above: Performed By: #### L AB113, [id number], LAB17 ####Fire Operations Forester: ALEIDA BAEZA ([id number])[facility] ([facility])[address] [place] [address] ALT [Catalytic activity/Vol] U/L Normal <40 [facility] Comment on above: Performed By: #### L AB113, [id number], LAB17 ####Fire Operations Forester: ALEIDA BAEZA ([id number])[facility] ([facility])[address] [place] [address] Anion gap [Moles/Vol] 8 mmol/L Normal 3-13 [facility] Comment on above: Performed By: #### Araseli AB113, [id number], LAB17 ####Fire Operations Forester: ALEIDA BAEZA ([id number])[facility] ([facility])[address] [place] [address] AST [Catalytic activity/Vol] 30 U/L Normal <34 [facility] Comment on above: Result Comment: TCPo tential interference from hemolysis Performed By: #### Araseli AB113, [id number], LAB17 ####Fire Operations Forester: ALEIDA BAEZA ([id number])[facility] ([facility])[address] [place] [address] [place] Bilirubin [Mass/Vol] 0.4 mg/dL Normal <1.2 [facility] Comment on above: Performed By: #### Araseli AB113, [id number], LAB17 ####Fire Operations Forester: ALEIDA BAEZA ([id number])[facility] ([facility])[address] [place] [address] Calcium [Mass/Vol] 9.0 mg/dL Normal 8.8-10.0 [facility] Comment on above: Performed By: #### L AB113, [id number], LAB17 ####Fire Operations Forester: ALEIDA BAEZA ([id number])[facility])[address] [place] [address] Chloride [Moles/Vol] 100 mmol/L Normal 98-107 [facility] Comment on above: Performed By: #### Araseli AB113, [id number], LAB17 ####Fire Operations Forester: ALEIDA BAEZA ([id number])[facility] [place] [address] CO2 [Moles/Vol] 24 mmol/L Normal 23-31 [facility] Comment on above: Performed By: #### L AB113, AVD540, LAB17 ####Fire Operations Forester: ALEIDA BAEZA ([id number])[facility])[address] [place] [address] Creatinine [Mass/Vol] 1.03 mg/dL Normal 0.72-1.25 [facility] Comment on above: Performed By: #### L AB113, [id number], LAB17 ####Fire Operations Forester: ALEIDA BAEZA ([id number])[facility])[address] [place] [address] GLOMERULAR FILTRATION RATE ML/MIN/1.73 SQ M.PREDICTED 79.1 mL/min/1.73m*2 Normal >60.0 [facility] Comment on above: Result Comment: Calc ulation based on the Chronic Kidney Disease Epidemiology Collaboration (CKD-EPI) equation refit without adjustment for race Performed By: #### L AB113, [id number], LAB17 ####Fire Operations Forester: ALEIDA BAEZA ([id number])[facility])[address] [place] [address] Glucose [Mass/Vol] 118 mg/dL High 82-115 [facility] Comment on above: Performed By: #### L AB113, [id number], LAB17 ####Fire Operations Forester: ALEIDA BAEZA ([id number])[facility])[address] [place] [address] Potassium [Moles/Vol] 3.8 mmol/L Normal 3.5-5.1 [facility] Comment on above: Result Comment: [facility] potassium values may be up to 0.5 mmol/L lower than serum values. Performed By: #### L AB113, [id number], LAB17 ####Fire Operations Forester: ALEIDA BAEZA ([id number])[facility])[address] [place] [address] Protein [Mass/Vol] 6.0 g/dL Low 6.4-8.3 [facility] Comment on above: Performed By: #### L AB113, [id number], LAB17 ####Fire Operations Forester: ALEIDA BAEZA ([id number])[facility] [place] [address] Sodium [Moles/Vol] 132 mmol/L Low 136-145 [facility] Comment on above: Performed By: #### Araseli AB113, [id number], LAB17 ####Fire Operations Forester: ALEIDA BAEZA ([id number])[facility] [place] [address] Urea nitrogen [Mass/Vol] 34 mg/dL High 9-23 [facility] Comment on above: Performed By: #### Araseli AB113, [id number], LAB17 ####Fire Operations Forester: ALEIDA BAEZA ([id number])[facility] ([facility])[address] [place] [address] Calcium.ionized [Moles/Vol]o n 05-23-2025 Calcium.ionized (Bld) [Moles/Vol] 4.7 mg/dL 4.30 - 5.20 mg/dL [facility] Interpretation and review of laboratory results Normal [facility] PH, IONIZED CALCIUM 7.39 7.31 - 7.46 [facility] Comprehensive metabolic 1998 panelon 05-23-2025 Albumin [Mass/Vol] 2.7 g/dL Low 3.4 - 4.8 g/dL [facility] ALP [Catalytic activity/Vol] 90 U/L 40 - 150 U/L [facility] ALT [Catalytic activity/Vol] U/L NINF - 40 U/L [facility] Anion gap [Moles/Vol] 8 mmol/L 3 - 13 mmol/L [facility] AST [Catalytic activity/Vol] 30 U/L NINF - 34 U/L [facility] Bilirubin [Mass/Vol] 0.4 mg/dL NINF - 1.2 mg/dL [facility] Calcium [Mass/Vol] 9 mg/dL 8.8 - 10. 0 mg/dL [facility] Chloride [Moles/Vol] 100 mmol/L 98 - 10 7 mmol/L [facility] CO2 [Moles/Vol] 24 mmol/L 23 - 31 mmol/L [facility] Creatinine [Mass/Vol] 1.03 mg/dL 0.72 - 1.25 mg/dL [facility] GFR/1.73 sq M.predicted (S/P/Bld) [Vol rate/Area] 79.1 mL/min - PINF [facility] Glucose [Mass/Vol] 118 mg/dL High 82 - 115 mg/dL [facility] Interpretation and review of laboratory results Abnormal [facility] Potassium [Moles/Vol] 3.8 mmol/L 3.5 - 5.1 mmol/L [facility] Protein [Mass/Vol] 6 g/dL Low 6.4 - 8.3 g/dL [facility] Sodium [Moles/Vol] 132 mmol/L Low 136 - 145 mmol/L [facility] Urea nitrogen [Mass/Vol] 34 mg/dL High 9 - 23 mg/dL [facility] Laboratory - Chemistry and C hemistry - challengeon 05-23-2025 Magnesium [Mass/Vol] 1.8 mg/dL 1.6 - 2 .6 mg/dL [facility] Laboratory - Microbiology an d Antimicrobial susceptibilityOrdered By: Roger Dunn on 05-23-2025 Bacteria identified Cx Nom (Bld) Staphylococcus aureus Critically abnormal [facility] MAGNESIUMon 05-23-2025 Magnesium [Mass/Vol] 1.8 mg/dL Normal 1.6-2.6 [facility] Comment on above: Result Comment: ANUPAM Alonso COMMENTS:Higher values can be expected in females during menses. Performed By: #### L AB113, [id number], LAB17 ####Fire Operations Forester: ALEIDA BAEZA ([id number])[address] Magnesium [Mass/Vol]on 05-23 Interpretation and review of laboratory results Normal [facility] PHOSPHORUSon 05-23-2025 Phosphate [Mass/Vol] 1.7 mg/dL Low 2.3-4.7 [facility] Comment on above: Performed By: #### L AB113, PPH133, LAB17 ####Fire Operations Forester: ALEIDA BAEZA ([id number])[facility] [place] [address] Phosphate [Moles/Vol]Ordered By: Juan Carlos Tello on 05-23-2025 Interpretation and review of laboratory results Abnormal [facility] Phosphate [Mass/Vol] 1.7 mg/dL Low 2.3 - 4 .7 mg/dL [facility] Progress Noteon 05-23-2025 Progress Note Normal [facility] Progress Note Normal [facility] Progress Note Normal [facility] Progress Note Normal [facility] XR CHEST 1 VIEWon 05-23-2025 XR CHEST 1 VIEW Normal [facility] XR Chest Single viewon 05-23 [facility] Radiology Study observation (narrative) [facility] BASIC METABOLIC PANELon 05-04 Anion gap [Moles/Vol] 9 mmol/L Normal 3-13 [facility] Comment on above: Performed By: #### L AB15 ####Fire Operations Forester: ALEIDA BAEZA ([id number])[facility])[address] [place] [address] Calcium [Mass/Vol] 9.2 mg/dL Normal 8.8-10.0 [facility] Comment on above: Performed By: #### L AB15 ####Fire Operations Forester: ALEIDA BAEZA ([id number])[facility])[address] [place] [address] [place] Chloride [Moles/Vol] 96 mmol/L Low 98-107 [facility] Comment on above: Performed By: #### L AB15 ####Fire Operations Forester: ALEIDA BAEZA ([id number])[facility])[address] [place] [address] [place] CO2 [Moles/Vol] 25 mmol/L Normal 23-31 [facility] Comment on above: Performed By: #### L AB15 ####Fire Operations Forester: ALEIDA BAEZA ([id number])[facility])[address] [place] [address] [place] Creatinine [Mass/Vol] 1.06 mg/dL Normal 0.72-1.25 [facility] Comment on above: Performed By: #### L AB15 ####Fire Operations Forester: ALEIDA BAEZA ([id number])[facility] ([facility])[address] [place] [address] [place] GLOMERULAR FILTRATION RATE ML/MIN/1.73 SQ M.PREDICTED 76.4 mL/min/1.73m*2 Normal >60.0 [facility] Comment on above: Result Comment: Calc ulation based on the Chronic Kidney Disease Epidemiology Collaboration (CKD-EPI) equation refit without adjustment for race Performed By: #### L AB15 ####Fire Operations Forester: ALEIDA BAEZA ([id number])[facility] [place] [address] [place] Glucose [Mass/Vol] 135 mg/dL High 82-115 [facility] Comment on above: Performed By: #### L AB15 ####Fire Operations Forester: ALEIDA BAEZA ([id number])[facility] ([facility])[address] [place] [address] [place] Potassium [Moles/Vol] 3.4 mmol/L Low 3.5-5.1 [facility] Comment on above: Result Comment: [facility] potassium values may be up to 0.5 mmol/L lower than serum values. Performed By: #### L AB15 ####Fire Operations Forester: ALEIDA BAEZA ([id number])[facility] ([facility])[address] [place] [address] [place] Sodium [Moles/Vol] 130 mmol/L Low 136-145 [facility] Comment on above: Performed By: #### L AB15 ####Fire Operations Forester: ALEIDA BAEZA ([id number])[facility] [place] [address] [place] Urea nitrogen [Mass/Vol] 24 mg/dL High 9-23 [facility] Comment on above: Performed By: #### L AB15 ####Fire Operations Forester: ALEIDA BAEZA ([id number])[facility] [place] [address] Anion gap [Moles/Vol] 13 mmol/L Normal 3-13 [facility] Comment on above: Performed By: #### L AB15, [id number], [id number] ####Fire Operations Forester: ALEIDA BAEZA ([id number])[facility])[address] [place] [address] Calcium [Mass/Vol] 9.7 mg/dL Normal 8.8-10.0 [facility] Comment on above: Performed By: #### L AB15, [id number], HPN737 ####Fire Operations Forester: ALEIDA BAEZA ([id number])[facility] [place] [address] Chloride [Moles/Vol] 95 mmol/L Low 98-107 [facility] Comment on above: Performed By: #### L AB15, [id number], [id number] ####Fire Operations Forester: ALEIDA BAEZA ([id number])[facility] ([facility])[address] [place] [address] CO2 [Moles/Vol] 22 mmol/L Low 23-31 [facility] Comment on above: Performed By: #### L AB15, [id number], GCC037 ####Fire Operations Forester: ALEIDA BAEZA ([id number])[facility] ([facility])[address] [place] [address] Creatinine [Mass/Vol] 1.20 mg/dL Normal 0.72-1.25 [facility] Comment on above: Performed By: #### L AB15, [id number], RDD190 ####Fire Operations Forester: ALEIDA BAEZA ([id number])[facility])[address] [place] [address] [place] GLOMERULAR FILTRATION RATE ML/MIN/1.73 SQ M.PREDICTED 65.9 mL/min/1.73m*2 Normal >60.0 [facility] Comment on above: Result Comment: Calc ulation based on the Chronic Kidney Disease Epidemiology Collaboration (CKD-EPI) equation refit without adjustment for race Performed By: #### L AB15, [id number], [id number] ####Fire Operations Forester: ALEIDA BAEZA ([id number])[facility])[address] [place] [address] [place] Glucose [Mass/Vol] 151 mg/dL High 82-115 [facility] Comment on above: Performed By: #### L AB15, XWP294, [id number] ####Fire Operations Forester: ALEIDA BAEZA ([id number])[facility] ([facility])[address] [place] [address] Potassium [Moles/Vol] 3.7 mmol/L Normal 3.5-5.1 [facility] Comment on above: Result Comment: [facility] potassium values may be up to 0.5 mmol/L lower than serum values. Performed By: #### L AB15, GXM461, DVP926 ####Fire Operations Forester: ALEIDA BAEZA ([id number])[facility] ([facility])[address] [place] [address] Sodium [Moles/Vol] 130 mmol/L Low 136-145 [facility] Comment on above: Performed By: #### L AB15, [id number], [id number] ####Fire Operations Forester: ALEIDA BAEZA ([id number])[facility] ([facility])[address] [place] [address] [place] Urea nitrogen [Mass/Vol] 26 mg/dL High 9-23 [facility] Comment on above: Performed By: #### L AB15, [id number], [id number] ####Fire Operations Forester: ALEIDA BAEZA ([id number])[facility] ([facility])[address] [place] [address] Anion gap [Moles/Vol] 13 mmol/L Normal 3-13 [facility] Comment on above: Performed By: #### L AB15, [id number], [id number] ####Fire Operations Forester: ALEIDA BAEZA ([id number])[facility] ([facility])[address] [place] [address] [place] Calcium [Mass/Vol] 9.0 mg/dL Normal 8.8-10.0 [facility] Region Comment on above: Performed By: #### L AB15, [id number], [id number] ####Fire Operations Forester: ALEIDA BAEZA ([id number])[facility] ([facility])[address] [place] [address] [place] Chloride [Moles/Vol] 95 mmol/L Low 98-107 [facility] Comment on above: Performed By: #### L AB15, [id number], [id number] ####Fire Operations Forester: ALEIDA BAEZA ([id number])[facility])[address] [place] [address] CO2 [Moles/Vol] 19 mmol/L Low 23-31 [facility] Comment on above: Performed By: #### Araseli AB15, [id number], [id number] ####Fire Operations Forester: ALEIDA BAEZA ([id number])[facility])[address] [place] [address] Creatinine [Mass/Vol] 1.20 mg/dL Normal 0.72-1.25 [facility] Comment on above: Performed By: #### Araseli AB15, [id number], [id number] ####Fire Operations Forester: ALEIDA BAEZA ([id number])[address] GLOMERULAR FILTRATION RATE ML/MIN/1.73 SQ M.PREDICTED 65.9 mL/min/1.73m*2 Normal >60.0 [facility] Comment on above: Result Comment: Calc ulation based on the Chronic Kidney Disease Epidemiology Collaboration (CKD-EPI) equation refit without adjustment for race Performed By: #### L AB15, [id number], [id number] ####Fire Operations Forester: ALEIDA BAEZA ([id number])[address] Glucose [Mass/Vol] 133 mg/dL High 82-115 [facility] Comment on above: Performed By: #### L AB15, [id number], [id number] ####Fire Operations Forester: ALEIDA BAEZA ([id number])[address] Potassium [Moles/Vol] 5.2 mmol/L High 3.5-5.1 [facility] Comment on above: Result Comment: TCSi gnificant interference from hemolysis. Result integrity compromised. Interpret with caution. Performed By: #### L AB15, [id number], [id number] ####Fire Operations Forester: ALEIDA BAEZA ([id number])[facility] ([facility])[address] [place] [address] Sodium [Moles/Vol] 127 mmol/L Low 136-145 [facility] Comment on above: Performed By: #### L AB15, [id number], [id number] ####Fire Operations Forester: ALEIDA BAEZA ([id number])[facility])[address] [place] [address] Urea nitrogen [Mass/Vol] 24 mg/dL High 9-23 [facility] Comment on above: Performed By: #### L AB15, [id number], [id number] ####Fire Operations Forester: ALEIDA BAEZA ([id number])[facility])[address] [place] [address] BLOOD CULTUREon 05-22-2025 Bacteria identified Cx Nom (Bld) Normal [facility] Comment on above: Performed By: #### L [id number] ####Fire Operations Forester: ALEIDA BAEZA ([id number])[facility] ([facility])[address] [place] [address] BLOOD GAS ARTERIALon 025 AMOUNT OF OXYGEN 40 Normal [facility] Comment on above: Performed By: #### L [id number] ####Fire Operations Forester: ALEIDA BAEZA ([id number])[facility])[address] [place] [address] Base excess Calc (Bld) [Moles/Vol] 0.8 mmol/L Normal -3.0-3.0 [facility] Comment on above: Performed By: #### L [id number] ####Fire Operations Forester: ALEIDA BAEZA ([id number])[facility])[address] [place] [address] CO2 [Moles/Vol] 25.6 mmol/L Normal 23.0-27.0 [facility] Comment on above: Performed By: #### L [id number] ####Fire Operations Forester: ALEIDA BAEZA ([id number])[facility])[address] [place] [address] [place] HCO3 (Bld) [Moles/Vol] 24.5 mmol/L Normal 21.0-25.0 S [facility] Comment on above: Performed By: #### L [id number] ####Fire Operations Forester: ALEIDA BAEZA ([id number])[facility])[address] [place] [address] Hemoglobin (Bld) [Mass/Vol] 13.9 g/dL Normal Screen only [facility] Comment on above: Performed By: #### L [id number] ####Fire Operations Forester: ALEIDA BAEZA ([id number])[facility])[address] [place] [address] OXYGEN SATURATION (%) IN ARTERIAL BLOOD 97.8 % Normal 95.0-100.0 [facility] Comment on above: Performed By: #### L [id number] ####Fire Operations Forester: ALEIDA BAEZA ([id number])[facility])[address] [place] [address] PCO2 ARTERIAL 36.5 mm Hg Normal >35.0-<45.0 [facility] Comment on above: Performed By: #### L [id number] ####Fire Operations Forester: ALEIDA BAEZA ([id number])[address] PH ARTERIAL 7.445 Normal 7.350-7.450 [facility] Comment on above: Performed By: #### L [id number] ####Fire Operations Forester: ALEIDA BAEZA ([id number])[facility])[address] [place] [address] PO2 ARTERIAL 107.9 mm Hg High 80.0-100.0 [facility] Comment on above: Performed By: #### L [id number] ####Fire Operations Forester: ALEIDA BAEZA ([id number])[address] SOURCE OF OXYGEN Ventilator Normal [facility] Comment on above: Performed By: #### L [id number] ####Fire Operations Forester: ALEIDA [id number])[facility])[address] [place] [address] Basic metabolic 1998 panelon 05-22-2025 Anion gap [Moles/Vol] 9 mmol/L 3 - 13 mmol/L [facility] Calcium [Mass/Vol] 9.2 mg/dL 8.8 - 10. 0 mg/dL [facility] Chloride [Moles/Vol] 96 mmol/L Low 98 - 10 7 mmol/L [facility] CO2 [Moles/Vol] 25 mmol/L 23 - 31 mmol/L [facility] Creatinine [Mass/Vol] 1.06 mg/dL 0.72 - 1.25 mg/dL [facility] GFR/1.73 sq M.predicted (S/P/Bld) [Vol rate/Area] 76.4 mL/min - PINF [facility] Glucose [Mass/Vol] 135 mg/dL High 82 - 115 mg/dL [facility] Interpretation and review of laboratory results Abnormal [facility] Potassium [Moles/Vol] 3.4 mmol/L Low 3.5 - 5.1 mmol/L [facility] Sodium [Moles/Vol] 130 mmol/L Low 136 - 145 mmol/L [facility] Urea nitrogen [Mass/Vol] 24 mg/dL High 9 - 23 mg/dL [facility] Anion gap [Moles/Vol] 13 mmol/L 3 - 13 mmol/L [facility] Calcium [Mass/Vol] 9 mg/dL 8.8 - 10. 0 mg/dL [facility] Chloride [Moles/Vol] 95 mmol/L Low 98 - 10 7 mmol/L [facility] CO2 [Moles/Vol] 19 mmol/L Low 23 - 31 mmol/L [facility] Creatinine [Mass/Vol] 1.2 mg/dL 0.72 - 1.25 mg/dL [facility] GFR/1.73 sq M.predicted (S/P/Bld) [Vol rate/Area] 65.9 mL/min - PINF [facility] Glucose [Mass/Vol] 133 mg/dL High 82 - 115 mg/dL [facility] Interpretation and review of laboratory results Abnormal [facility] Potassium [Moles/Vol] 5.2 mmol/L High 3.5 - 5.1 mmol/L [facility] Sodium [Moles/Vol] 127 mmol/L Low 136 - 145 mmol/L [facility] Urea nitrogen [Mass/Vol] 24 mg/dL High 9 - 23 mg/dL [facility] Anion gap [Moles/Vol] 12 mmol/L 3 - 13 mmol/L [facility] Calcium [Mass/Vol] 9.3 mg/dL 8.8 - 10. 0 mg/dL [facility] Chloride [Moles/Vol] 93 mmol/L Low 98 - 10 7 mmol/L [facility] CO2 [Moles/Vol] 24 mmol/L 23 - 31 mmol/L [facility] Creatinine [Mass/Vol] 1.18 mg/dL 0.72 - 1.25 mg/dL [facility] GFR/1.73 sq M.predicted (S/P/Bld) [Vol rate/Area] 67.2 mL/min - PINF [facility] Glucose [Mass/Vol] 145 mg/dL High 82 - 115 mg/dL [facility] Interpretation and review of laboratory results Abnormal [facility] Potassium [Moles/Vol] 3.8 mmol/L 3.5 - 5.1 mmol/L [facility] Sodium [Moles/Vol] 129 mmol/L Low 136 - 145 mmol/L [facility] Urea nitrogen [Mass/Vol] 25 mg/dL High 9 - 23 mg/dL [facility] Basic metabolic 1998 panelOr dered By: Tasia Menard on 05-22-2025 Anion gap [Moles/Vol] 13 mmol/L 3 - 13 mmol/L [facility] Calcium [Mass/Vol] 9.7 mg/dL 8.8 - 10. 0 mg/dL [facility] Chloride [Moles/Vol] 95 mmol/L Low 98 - 10 7 mmol/L [facility] CO2 [Moles/Vol] 22 mmol/L Low 23 - 31 mmol/L [facility] Creatinine [Mass/Vol] 1.2 mg/dL 0.72 - 1.25 mg/dL [facility] GFR/1.73 sq M.predicted (S/P/Bld) [Vol rate/Area] 65.9 mL/min - PINF [facility] Glucose [Mass/Vol] 151 mg/dL High 82 - 115 mg/dL [facility] Interpretation and review of laboratory results Abnormal [facility] Potassium [Moles/Vol] 3.7 mmol/L 3.5 - 5.1 mmol/L [facility] Sodium [Moles/Vol] 130 mmol/L Low 136 - 145 mmol/L [facility] Urea nitrogen [Mass/Vol] 26 mg/dL High 9 - 23 mg/dL [facility] CALCIUM, IONIZEDon CALCIUM IONIZED 4.70 mg/dL Normal 4.30-5.20 [facility] Comment on above: Performed By: #### L [id number] ####Fire Operations Forester: ALEIDA BAEZA ([id number])[facility])[address] [place] [address] PH, IONIZED CALCIUM 7.42 Normal 7.31-7.46 [facility] Comment on above: Performed By: #### L AB54 ####Fire Operations Forester: ALEIDA BAEZA ([id number])[facility] ([facility])[address] [place] [address] CALCIUM IONIZED 4.00 mg/dL Low 4.30-5.20 [facility] Comment on above: Performed By: #### L [id number] ####Fire Operations Forester: ALEIDA BAEZA ([id number])[facility] ([facility])[address] [place] [address] PH, IONIZED CALCIUM 7.47 High 7.31-7.46 [facility] Comment on above: Performed By: #### L AB54 ####Fire Operations Forester: ALEIDA BAEZA ([id number])[facility] ([facility])[address] [place] [address] CBC W Auto Differential pane l (Bld)Ordered By: Sol Aricniega on 05-22-2025 Basophils (Bld) [#/Vol] 0 10*3/uL 0.0 - 0.2 10*3/uL [facility] Basophils/100 WBC (Bld) 0.2 % 0.0 - 2.0 % [facility] Eosinophils (Bld) [#/Vol] 0 10*3/uL 0.0 - 0.5 10*3/uL [facility] Eosinophils/100 WBC (Bld) 0 % 0.0 - 6.0 % [facility] Erythrocyte distribution width (RBC) [Ratio] 12.8 % 11.5 - 15.0 % [facility] Hematocrit (Bld) [Volume fraction] 38.7 % Low 40.0 - 52.0 % [facility] Hemoglobin (Bld) [Mass/Vol] 13.4 g/dL 13.0 - 18.0 g/dL [facility] Immature granulocytes (Bld) [#/Vol] 0.2 10*3/uL High NINF - 0.1 10*3/uL [facility] Immature granulocytes/100 WBC (Bld) 0.8 % 0.0 - 2.0 % [facility] Interpretation and review of laboratory results Abnormal [facility] IPF 5 [facility] Lymphocytes (Bld) [#/Vol] 0.4 10*3/uL Low 1.0 - 4.3 10*3/uL [facility] Lymphocytes/100 WBC (Bld) 1.8 % Low 15.0 - 45.0 % [facility] MCH (RBC) [Entitic mass] 30.5 pg 26.0 - 34.0 pg [facility] MCHC (RBC) [Mass/Vol] 34.6 % 30.5 - 36.0 % [facility] MCV (RBC) [Entitic vol] 88 fL 77.0 - 99.0 fL [facility] Monocytes (Bld) [#/Vol] 1.1 10*3/uL High 0.0 - 0.9 10*3/uL [facility] Monocytes/100 WBC (Bld) 4.6 % Low 5.0 - 13.0 % [facility] Neutrophils (Bld) [#/Vol] 21.6 10*3/uL High 1.8 - 7.5 10*3/uL [facility] Neutrophils/100 WBC (Bld) 92.6 % High 38.0 - 82.0 % [facility] Nucleated RBC/100 WBC (Bld) [Ratio] 0 % [facility] Platelet mean volume (Bld) [Entitic vol] 10.4 fL 9.0 - 12.7 fL [facility] Platelets (Bld) [#/Vol] 139 10*3/uL Low 140 - 440 10*3/uL [facility] RBC (Bld) [#/Vol] 4.4 10*6/uL 4.40 - 5.9 0 10*6/uL [facility] WBC (Bld) [#/Vol] 23.3 10*3/uL High 3.6 - 10.7 10*3/uL [facility] CBC WITH AUTO DIFFERENTIALon 05-22-2025 Basophils (Bld) [#/Vol] 0.0 10*3/uL Normal 0.0-0.2 [facility] Comment on above: Performed By: #### L [id number] ####Fire Operations Forester: ALEIDA BAEZA ([id number])[facility])[address] [place] [address] [place] Basophils/100 WBC (Bld) 0.2 % Normal 0.0-2.0 [facility] Comment on above: Performed By: #### L [id number] ####Fire Operations Forester: ALEIDA BAEZA ([id number])[facility])[address] [place] [address] Eosinophils (Bld) [#/Vol] 0.0 10*3/uL Normal 0.0-0.5 [facility] Comment on above: Performed By: #### L [id number] ####Fire Operations Forester: ALEIDA BAEZA ([id number])[facility] ([facility])[address] [place] [address] Eosinophils/100 WBC (Bld) 0.0 % Normal 0.0-6.0 [facility] Comment on above: Performed By: #### L [id number] ####Fire Operations Forester: ALEIDA BAEZA ([id number])[facility])[address] [place] [address] Erythrocyte distribution width (RBC) [Ratio] 12.8 % Normal 11.5-15.0 [facility] Comment on above: Performed By: #### L [id number] ####Fire Operations Forester: ALEIDA BAEZA ([id number])[facility] ([facility])[address] [place] [address] Hematocrit (Bld) [Volume fraction] 38.7 % Low 40.0-52.0 [facility] Comment on above: Performed By: #### L [id number] ####Fire Operations Forester: ALEIDA [id number])[facility] ([address] Hemoglobin (Bld) [Mass/Vol] 13.4 g/dL Normal 13.0-18.0 [facility] Comment on above: Performed By: #### L [id number] ####Fire Operations Forester: ALEIDA BAEZA ([id number])[facility])[address] [place] [address] IMMATURE GRANS % 0.8 % Normal 0.0-2.0 [facility] Comment on above: Performed By: #### L [id number] ####Fire Operations Forester: ALEIDA BAEZA ([id number])[facility])[address] [place] [address] IMMATURE GRANS ABSOLUTE 0.2 10*3/uL High <0.1 [facility] Comment on above: Performed By: #### L [id number] ####Fire Operations Forester: ALEIDA BAEZA ([id number])[facility])[address] [place] [address] IPF 5 Normal [facility] Comment on above: Performed By: #### L [id number] ####Fire Operations Forester: ALEIDA BAEZA ([id number])[facility])[address] [place] [address] Lymphocytes (Bld) [#/Vol] 0.4 10*3/uL Low 1.0-4.3 [facility] Comment on above: Performed By: #### L [id number] ####Fire Operations Forester: ALEIDA BAEZA ([id number])[facility])[address] [place] [address] Lymphocytes/100 WBC (Bld) 1.8 % Low 15.0-45.0 [facility] Comment on above: Performed By: #### L [id number] ####Fire Operations Forester: ALEIDA BAEZA ([id number])[facility])[address] [place] [address] MCH (RBC) [Entitic mass] 30.5 pg Normal 26.0-34.0 [facility] Comment on above: Performed By: #### L [id number] ####Fire Operations Forester: ALEIDA BAEZA ([id number])[facility] ([facility])[address] [place] [address] MCHC 34.6 % Normal 30.5-36.0 [facility] Comment on above: Performed By: #### L [id number] ####Fire Operations Forester: ALEIDA BAEZA ([id number])[facility] ([facility])[address] [place] [address] MCV (RBC) [Entitic vol] 88.0 fL Normal 77.0-99.0 [facility] Comment on above: Performed By: #### L [id number] ####Fire Operations Forester: ALEIDA BAEZA ([id number])[facility])[address] [place] [address] Monocytes (Bld) [#/Vol] 1.1 10*3/uL High 0.0-0.9 [facility] Comment on above: Performed By: #### L [id number] ####Fire Operations Forester: ALEIDA BAEZA ([id number])[facility] ([facility])[address] [place] [address] Monocytes/100 WBC (Bld) 4.6 % Low 5.0-13.0 [facility] Comment on above: Performed By: #### L [id number] ####Fire Operations Forester: ALEIDA BAEZA ([id number])[facility] ([facility])[address] [place] [address] NEUTROPHILS ABSOLUTE 21.6 10*3/uL High 1.8-7.5 [facility] Comment on above: Performed By: #### L [id number] ####Fire Operations Forester: ALEIDA BAEZA ([id number])[facility] ([facility])[address] [place] [address] Neutrophils/100 WBC (Bld) 92.6 % High 38.0-82.0 [facility] Comment on above: Performed By: #### L [id number] ####Fire Operations Forester: ALEIDA BAEZA ([id number])[facility] ([address] NRBC 0.0 /100 WBCs Normal 0.0-2.0 [facility] Comment on above: Performed By: #### L [id number] ####Fire Operations Forester: ALEIDA BAEZA ([id number])[facility])[address] [place] [address] Platelet mean volume (Bld) [Entitic vol] 10.4 fL Normal 9.0-12.7 [facility] Comment on above: Performed By: #### L [id number] ####Fire Operations Forester: ALEIDA BAEZA ([id number])[facility])[address] [place] [address] Platelets (Bld) [#/Vol] 139 10*3/uL Low 140-440 [facility] Comment on above: Performed By: #### L [id number] ####Fire Operations Forester: ALEIDA BAEZA ([id number])[facility] ([facility])[address] [place] [address] RBC (Bld) [#/Vol] 4.40 10*6/uL Normal 4.40-5.90 [facility] Comment on above: Performed By: #### L [id number] ####Fire Operations Forester: ALEIDA BAEZA ([id number])[facility])[address] [place] [address] WBC (Bld) [#/Vol] 23.3 10*3/uL High 3.6-10.7 [facility] Comment on above: Performed By: #### L [id number] ####Fire Operations Forester: ALEIDA BAEZA ([id number])[facility])[address] [place] [address] Calcium.ionized [Moles/Vol]o n 05-22-2025 Calcium.ionized (Bld) [Moles/Vol] 4.7 mg/dL 4.30 - 5.20 mg/dL [facility] Interpretation and review of laboratory results Normal [facility] PH, IONIZED CALCIUM 7.42 7.31 - 7.46 [facility] Calcium.ionized (Bld) [Moles/Vol] 4 mg/dL Low 4.30 - 5.20 mg/dL [facility] Interpretation and review of laboratory results Abnormal [facility] PH, IONIZED CALCIUM 7.47 High 7.31 - 7.46 [facility] Calcium.ionized (Bld) [Moles/Vol] 4.5 mg/dL 4.30 - 5.20 mg/dL [facility] Interpretation and review of laboratory results Normal [facility] PH, IONIZED CALCIUM 7.42 7.31 - 7.46 [facility] Consulton 05-22-2025 Consult Normal [facility] Consult Normal [facility] ECG 12-LEADon 05-22-2025 ECG 12-LEAD IMPRESSION: ATRIAL FIBRILLATION Ventricular-paced complexes Electronically Signed On 05-22-2025 08:13:20 EDT by Alek Gordon Normal [facility] ED Nursing Noteon 05-22-2025 ED Nursing Note MICU Ander Barcenas-Marita / Resident Normal [facility] Laboratory - Chemistry and C hemistry - challengeon 05-22-2025 Magnesium [Mass/Vol] 2 mg/dL 1.6 - 2 .6 mg/dL [facility] Magnesium [Mass/Vol] 2.3 mg/dL 1.6 - 2 .6 mg/dL [facility] Magnesium [Mass/Vol] 2.1 mg/dL 1.6 - 2 .6 mg/dL [facility] Laboratory - Chemistry and C hemistry - challengeOrdered By: Baudilio Dc on 05-22-2025 Base excess Calc (Bld) [Moles/Vol] 0.8 mmol/L -3.0 - 3.0 mmol/L [facility] CO2 (Bld) [Partial pressure] 36.5 mm[Hg] - PINF [facility] CO2 [Moles/Vol] 25.6 mmol/L 23.0 - 27.0 mmol/L [facility] HCO3 (Bld) [Moles/Vol] 24.5 mmol/L 21.0 - 25.0 mmol/L [facility] Oxygen (Bld) [Partial pressure] 107.9 mm[Hg] High [facility] pH (Bld) 7.445 [pH] 7.350 - 7.450 [facility] - Drug toxicology on 05-22-2025 Vancomycin trough [Mass/Vol] 29.5 ug/mL [facility] - Hematology and Cell countsOrdered By: Baudilio Dc on 05-22-2025 Hemoglobin (Bld) [Mass/Vol] 13.9 g/dL 7.0 g/dl [facility] MAGNESIUMon 05-22-2025 Magnesium [Mass/Vol] 2.0 mg/dL Normal 1.6-2.6 [facility] Comment on above: Result Comment: ANUPAM R COMMENTS:Higher values can be expected in females during menses. Performed By: #### L AB15, [id number], [id number] ####Fire Operations Forester: ALEIDA BAEZA ([id number])[facility])[address] [place] [address] Magnesium [Mass/Vol] 2.3 mg/dL Normal 1.6-2.6 [facility] Comment on above: Result Comment: ANUPAM R COMMENTS:Higher values can be expected in females during menses. Performed By: #### L AB15, [id number], [id number] ####Fire Operations Forester: ALEIDA BAEZA ([id number])[facility] [place] [address] Magnesium [Mass/Vol]on 05-22 [facility] Interpretation and review of laboratory results Normal [facility] [employer] [facility] No Panel Informationon 05-22 Interpretation and review of laboratory results Normal [facility] CV EPIPHANY [facility] Interpretation and review of laboratory results Normal [facility] [employer] [facility] No Panel InformationOrdered By: Alek Gordon on 05-22-2025 P [place] 0 degrees [facility] Work Phone: VA Interval 158 ms [employer] Work Phone: QRS [place] -107 degrees [employer] Work Phone: QRSD Interval 150 ms [employer] Work Phone: QT Interval 669 ms [employer] Work Phone: QTC Interval 682 ms [employer] Work Phone: T Wave [place] 53 degrees [employer] Work Phone: [employer] Work Phone: No Panel InformationOrdered By: Baudilio Dc on 05-22-2025 Amount Of Oxygen 40 [facility] Interpretation and review of laboratory results Abnormal [facility] Source Of Oxygen Ventilator [facility] PHOSPHORUSon 05-22-2025 Phosphate [Mass/Vol] 3.8 mg/dL Normal 2.3-4.7 [facility] Comment on above: Performed By: #### L AB15, [id number], [id number] ####Fire Operations Forester: ALEIDA BAEZA ([id number])[facility] ([facility])[address] [place] [address] Phosphate [Mass/Vol] 4.4 mg/dL Normal 2.3-4.7 [facility] Comment on above: Result Comment: TCPo tential interference from hemolysis Performed By: #### L AB15, [id number], [id number] ####Fire Operations Forester: ALEIDA BAEZA ([id number])[facility] ([facility])[address] [place] [address] Phosphate [Moles/Vol]on 05-04 Phosphate [Mass/Vol] 3.8 mg/dL 2.3 - 4 .7 mg/dL [facility] Interpretation and review of laboratory results Normal [facility] Phosphate [Mass/Vol] 4.4 mg/dL 2.3 - 4 .7 mg/dL [facility] Phosphate [Mass/Vol] 3.9 mg/dL 2.3 - 4 .7 mg/dL [facility] Progress Noteon 05-22-2025 Progress Note Normal [facility] Progress Note Normal [facility] Progress Note Pt extubated per order. Normal [facility] Progress Note Normal [facility] Progress Note Normal [facility] Progress Note Normal [facility] VANCOMYCIN, AUC TIMED DOSING on 05-22-2025 VANCOMYCIN, AUC 29.5 ug/mL Normal [facility] Comment on above: Result Comment: ORDE R COMMENTS:Please draw random level at least >2 hours after the end of the last vancomycin infusion, or 30-minutes before next infusion.Toxicity is seen at concentrations >80-100 ug/mLTherapeutic (Peak) range: 20-40Therapeutic (Trough) range: 5-10 Performed By: #### L [id number] ####Fire Operations Forester: ALEIDA BAEZA ([id number])[facility] ([facility])[address] [place] [address] Vancomycin trough [Mass/Vol] on 05-22-2025 [facility] Vital signsOrdered By: Alek Gordon on 05-22-2025 Heart rate 62 /min bpm [facility] Work Phone: XR CHEST 1 VIEWon 05-22-2025 XR CHEST 1 VIEW Normal [facility] XR Chest Single viewon 05-22 [facility] Radiology Study observation (narrative) [place] [facility] X[facility] Chest Single viewOrdered By: Charlie Carter on 05-22-2025 [facility] [id number] 05-21-2025 [id number] Normal [facility] [id number] Normal [facility] [id number] Normal [facility] [id number] Normal [facility] ACETAMINOPHEN LEVELon 2024 Acetaminophen [Mass/Vol] ug/mL Low 10.0-30.0 [facility] Comment on above: Result Comment: ANUPAM Alonso COMMENTS:Acetaminophen concentrations greater than 150 ug/mL at 4 hours after ingestion and greater than 40 ug/mL at 12 hours after ingestion are often associated with toxicity. Performed By: #### L AB15, LAB43, LAB34 ####Fire Operations Forester: ALEIDA BAEZA ([id number])[facility] ([facility])[address] [place] [address] BASIC METABOLIC PANELon 05-03 Anion gap [Moles/Vol] 12 mmol/L Normal 3-13 [facility] Comment on above: Performed By: #### L AB15, ZUX837, ACT270 ####Fire Operations Forester: ALEIDA BAEZA ([id number])[facility] ([facility])[address] [place] [address] Calcium [Mass/Vol] 9.3 mg/dL Normal 8.8-10.0 [facility] Comment on above: Performed By: #### L AB15, GOL511, WHA865 ####Fire Operations Forester: ALEIDA BAEZA ([id number])[facility] [place] [address] Chloride [Moles/Vol] 93 mmol/L Low 98-107 [facility] Comment on above: Performed By: #### L AB15, UAJ923, WPN886 ####Fire Operations Forester: ALEIDA BAEZA ([id number])[facility])[address] [place] [address] CO2 [Moles/Vol] 24 mmol/L Normal 23-31 [facility] Comment on above: Performed By: #### L AB15, GFN783, VMM765 ####Fire Operations Forester: ALEIDA BAEZA ([id number])[facility])[address] [place] [address] Creatinine [Mass/Vol] 1.18 mg/dL Normal 0.72-1.25 [facility] Comment on above: Performed By: #### L AB15, AQU421, GSJ235 ####Fire Operations Forester: ALEIDA BAEZA ([id number])[facility] ([facility])[address] [place] [address] [place] GLOMERULAR FILTRATION RATE ML/MIN/1.73 SQ M.PREDICTED 67.2 mL/min/1.73m*2 Normal >60.0 [facility] Comment on above: Result Comment: Calc ulation based on the Chronic Kidney Disease Epidemiology Collaboration (CKD-EPI) equation refit without adjustment for race Performed By: #### L AB15, TAC739, JXY149 ####Fire Operations Forester: ALEIDA BAEZA ([id number])[facility] ([facility])[address] [place] [address] [place] Glucose [Mass/Vol] 145 mg/dL High 82-115 [facility] Comment on above: Performed By: #### L AB15, MIG161, WST192 ####Fire Operations Forester: ALEIDA BAEZA ([id number])[facility])[address] [place] [address] [place] Potassium [Moles/Vol] 3.8 mmol/L Normal 3.5-5.1 [facility] Comment on above: Result Comment: [facility] potassium values may be up to 0.5 mmol/L lower than serum values. Performed By: #### L AB15, IIM347, SSX824 ####Fire Operations Forester: ALEIDA BAEZA ([id number])[facility] ([facility])[address] [place] [address] Sodium [Moles/Vol] 129 mmol/L Low 136-145 [facility] Comment on above: Performed By: #### L AB15, BDX402, WHU353 ####Fire Operations Forester: ALEIDA BAEZA ([id number])[facility] ([facility])[address] [place] [address] Urea nitrogen [Mass/Vol] 25 mg/dL High 9-23 [facility] Comment on above: Performed By: #### L AB15, COM625, JEU139 ####Fire Operations Forester: ALEIDA BAEZA ([id number])[facility] ([facility])[address] [place] [address] Anion gap [Moles/Vol] 12 mmol/L Normal 3-13 [facility] Comment on above: Performed By: #### L AB15, DOF787, GWL119 ####Fire Operations Forester: ALEIDA BAEZA ([id number])[facility] ([facility])[address] [place] [address] Calcium [Mass/Vol] 9.4 mg/dL Normal 8.8-10.0 [facility] Comment on above: Performed By: #### L AB15, YIO816, JTI689 ####Fire Operations Forester: ALEIDA BAEZA ([id number])[facility] ([facility])[address] [place] [address] [place] Chloride [Moles/Vol] 92 mmol/L Low 98-107 [facility] Comment on above: Performed By: #### L AB15, OMU180, GDW840 ####Fire Operations Forester: ALEIDA BAEZA ([id number])[facility])[address] [place] [address] CO2 [Moles/Vol] 24 mmol/L Normal 23-31 [facility] Comment on above: Performed By: #### L AB15, MLZ176, DYJ854 ####Fire Operations Forester: ALEIDA BAEZA ([id number])[facility])[address] [place] [address] Creatinine [Mass/Vol] 1.25 mg/dL Normal 0.72-1.25 [facility] Comment on above: Performed By: #### L AB15, SZV742, LIM213 ####Fire Operations Forester: ALEIDA BAEZA ([id number])[facility])[address] [place] [address] GLOMERULAR FILTRATION RATE ML/MIN/1.73 SQ M.PREDICTED 62.7 mL/min/1.73m*2 Normal >60.0 [facility] Comment on above: Result Comment: Calc ulation based on the Chronic Kidney Disease Epidemiology Collaboration (CKD-EPI) equation refit without adjustment for race Performed By: #### L AB15, RSL576, NLG548 ####Fire Operations Forester: ALEIDA BAEZA ([id number])[facility])[address] [place] [address] Glucose [Mass/Vol] 134 mg/dL High 82-115 [facility] Comment on above: Performed By: #### L AB15, WFM183, RWI107 ####Fire Operations Forester: ALEIDA BAEZA ([id number])[address] Potassium [Moles/Vol] 3.8 mmol/L Normal 3.5-5.1 [facility] Comment on above: Result Comment: [facility] potassium values may be up to 0.5 mmol/L lower than serum values. Performed By: #### L AB15, XWW704, ORD901 ####Fire Operations Forester: ALEIDA BAEZA ([id number])[facility])[address] [place] [address] [place] Sodium [Moles/Vol] 128 mmol/L Low 136-145 [facility] Comment on above: Performed By: #### L AB15, ITQ748, UFL867 ####Fire Operations Forester: ALEIDA BAEZA ([id number])[facility])[address] [place] [address] [place] Urea nitrogen [Mass/Vol] 24 mg/dL High 9-23 [facility] Comment on above: Performed By: #### L AB15, MOT885, AVU370 ####Fire Operations Forester: ALEIDA BAEZA ([id number])[facility] [place] [address] Anion gap [Moles/Vol] 8 mmol/L Normal 3-13 [facility] Comment on above: Performed By: #### L AB15, XPZ426, UGC495 ####Fire Operations Forester: ALEIDA BAEZA ([id number])[facility] [place] [address] Calcium [Mass/Vol] 9.4 mg/dL Normal 8.8-10.0 [facility] Comment on above: Performed By: #### Araseli AB15, FZR526, IIK095 ####Fire Operations Forester: ALEIDA BAEZA ([id number])[facility] [place] [address] Chloride [Moles/Vol] 95 mmol/L Low 98-107 [facility] Comment on above: Performed By: #### L AB15, KVM952, TER565 ####Fire Operations Forester: ALEIDA BAEZA ([id number])[facility] [place] [address] [place] CO2 [Moles/Vol] 24 mmol/L Normal 23-31 [facility] Comment on above: Performed By: #### L AB15, TLR370, MGM059 ####Fire Operations Forester: ALEIDA BAEZA ([id number])[facility] [place] [address] [place] Creatinine [Mass/Vol] 1.32 mg/dL High 0.72-1.25 [facility] Comment on above: Performed By: #### L AB15, BPG024, PVR469 ####Fire Operations Forester: ALEIDA BAEZA ([id number])[facility] [place] [address] [place] GLOMERULAR FILTRATION RATE ML/MIN/1.73 SQ M.PREDICTED 58.8 mL/min/1.73m*2 Low >60.0 [facility] Comment on above: Result Comment: Calc ulation based on the Chronic Kidney Disease Epidemiology Collaboration (CKD-EPI) equation refit without adjustment for race Performed By: #### L AB15, XPY384, OZJ428 ####Fire Operations Forester: ALEIDA BAEZA ([id number])[facility])[address] [place] [address] Glucose [Mass/Vol] 121 mg/dL High 82-115 [facility] Comment on above: Performed By: #### L AB15, QGX294, EIL559 ####Fire Operations Forester: ALEIDA BAEZA ([id number])[facility])[address] [place] [address] Potassium [Moles/Vol] 3.7 mmol/L Normal 3.5-5.1 [facility] Comment on above: Result Comment: [facility] potassium values may be up to 0.5 mmol/L lower than serum values. Performed By: #### L AB15, CDM914, GIB332 ####Fire Operations Forester: ALEIDA BAEZA ([id number])[facility] ([facility])[address] [place] [address] Sodium [Moles/Vol] 127 mmol/L Low 136-145 [facility] Comment on above: Performed By: #### L AB15, RJB490, AFQ373 ####Fire Operations Forester: ALEIDA BAEZA ([id number])[facility])[address] [place] [address] [place] Urea nitrogen [Mass/Vol] 24 mg/dL High 9-23 [facility] Comment on above: Performed By: #### L AB15, OCD812, JOM560 ####Fire Operations Forester: ALEIDA BAEZA ([id number])[facility])[address] [place] [address] Anion gap [Moles/Vol] 10 mmol/L Normal 3-13 [facility] Comment on above: Performed By: #### L AB15, XNK447, EJN279 ####Fire Operations Forester: ALEIDA BAEZA ([id number])[facility] [place] [address] Calcium [Mass/Vol] 9.2 mg/dL Normal 8.8-10.0 [facility] Comment on above: Performed By: #### L AB15, ETS871, TQQ374 ####Fire Operations Forester: ALEIDA BAEZA ([id number])[facility] [place] [address] [place] Chloride [Moles/Vol] 93 mmol/L Low 98-107 [facility] Comment on above: Performed By: #### L AB15, PPR940, XDA548 ####Fire Operations Forester: ALEIDA BAEZA ([id number])[facility])[address] [place] [address] CO2 [Moles/Vol] 22 mmol/L Low 23-31 [facility] Comment on above: Performed By: #### L AB15, MUH164, EJV496 ####Fire Operations Forester: ALEIDA BAEZA ([id number])[facility] ([facility])[address] [place] [address] Creatinine [Mass/Vol] 1.35 mg/dL High 0.72-1.25 [facility] Comment on above: Performed By: #### L AB15, DMR362, EQQ606 ####Fire Operations Forester: ALEIDA BAEZA ([id number])[facility] ([facility])[address] [place] [address] [place] GLOMERULAR FILTRATION RATE ML/MIN/1.73 SQ M.PREDICTED 57.2 mL/min/1.73m*2 Low >60.0 [facility] Comment on above: Result Comment: Calc ulation based on the Chronic Kidney Disease Epidemiology Collaboration (CKD-EPI) equation refit without adjustment for race Performed By: #### L AB15, FJA061, WXI569 ####Fire Operations Forester: ALEIDA BAEZA ([id number])[facility] ([facility])[address] [place] [address] [place] Glucose [Mass/Vol] 127 mg/dL High 82-115 [facility] Comment on above: Performed By: #### L AB15, WKQ495, RMY742 ####Fire Operations Forester: ALEIDA BAEZA ([id number])[facility] ([facility])[address] [place] [address] Potassium [Moles/Vol] 3.7 mmol/L Normal 3.5-5.1 [facility] Comment on above: Result Comment: [facility] potassium values may be up to 0.5 mmol/L lower than serum values. Performed By: #### L AB15, HJP414, PMB153 ####Fire Operations Forester: ALEIDA BAEZA ([id number])[facility] [place] [address] Sodium [Moles/Vol] 125 mmol/L Low 136-145 [facility] Comment on above: Performed By: #### L AB15, GGA663, GRU231 ####Fire Operations Forester: ALEIDA BAEZA ([id number])[facility] ([facility])[address] [place] [address] Urea nitrogen [Mass/Vol] 24 mg/dL High 9-23 [facility] Comment on above: Performed By: #### L AB15, RRW001, DGO992 ####Fire Operations Forester: ALEIDA BAEZA ([id number])[facility] ([facility])[address] [place] [address] Anion gap [Moles/Vol] 10 mmol/L Normal 3-13 [facility] Comment on above: Performed By: #### L AB149, LAB15, WEB236, DKN113 ####Fire Operations Forester: ALEIDA BAEZA ([id number])[facility] ([facility])[address] [place] [address] [place] Calcium [Mass/Vol] 9.3 mg/dL Normal 8.8-10.0 [facility] Comment on above: Performed By: #### L AB149, LAB15, XVP470, SIT702 ####Fire Operations Forester: ALEIDA BAEZA ([id number])[facility] ([facility])[address] [place] [address] [place] Chloride [Moles/Vol] 92 mmol/L Low 98-107 [facility] Comment on above: Performed By: #### L AB149, LAB15, NXC881, MSP423 ####Fire Operations Forester: ALEIDA BAEZA ([id number])[facility])[address] [place] [address] CO2 [Moles/Vol] 21 mmol/L Low 23-31 [facility] Comment on above: Performed By: #### L AB149, LAB15, XPV944, QKA997 ####Fire Operations Forester: ALEIDA BAEZA ([id number])[facility])[address] [place] [address] Creatinine [Mass/Vol] 1.39 mg/dL High 0.72-1.25 [facility] Comment on above: Performed By: #### L AB149, LAB15, YSY268, TNL931 ####Fire Operations Forester: ALEIDA BAEZA ([id number])[address] GLOMERULAR FILTRATION RATE ML/MIN/1.73 SQ M.PREDICTED 55.2 mL/min/1.73m*2 Low >60.0 [facility] Comment on above: Result Comment: Calc ulation based on the Chronic Kidney Disease Epidemiology Collaboration (CKD-EPI) equation refit without adjustment for race Performed By: #### L AB149, LAB15, NAJ368, RYT241 ####Fire Operations Forester: ALEIDA BAEZA ([id number])[address] Glucose [Mass/Vol] 145 mg/dL High 82-115 [facility] Comment on above: Performed By: #### L AB149, LAB15, MSA413, KKH636 ####Fire Operations Forester: ALEIDA BAEZA ([id number])[facility])[address] [place] [address] Potassium [Moles/Vol] 4.3 mmol/L Normal 3.5-5.1 [facility] Comment on above: Result Comment: [facility] potassium values may be up to 0.5 mmol/L lower than serum values. Performed By: #### L AB149, LAB15, TZU466, PHC117 ####Fire Operations Forester: ALEIDA BAEZA ([id number])[facility] ([facility])[address] [place] [address] Sodium [Moles/Vol] 123 mmol/L Low 136-145 [facility] Comment on above: Performed By: #### L AB149, LAB15, GQX910, TGY830 ####Fire Operations Forester: ALEIDA BAEZA ([id number])[facility] ([facility])[address] [place] [address] Urea nitrogen [Mass/Vol] 24 mg/dL High 9-23 [facility] Comment on above: Performed By: #### L AB149, LAB15, BWP018, KHJ157 ####Fire Operations Forester: ALEIDA BAEZA ([id number])[facility] ([facility])[address] [place] [address] Anion gap [Moles/Vol] 12 mmol/L Normal 3-13 [facility] Comment on above: Performed By: #### L AB15, LAB43, LAB34 ####Fire Operations Forester: ALEIDA BAEZA ([id number])[facility] ([facility])[address] [place] [address] Calcium [Mass/Vol] 8.6 mg/dL Low 8.8-10.0 [facility] Comment on above: Performed By: #### L AB15, LAB43, LAB34 ####Fire Operations Forester: ALEIDA BAEZA ([id number])[facility] ([facility])[address] [place] [address] [place] Chloride [Moles/Vol] 85 mmol/L Low 98-107 [facility] Comment on above: Performed By: #### L AB15, LAB43, LAB34 ####Fire Operations Forester: ALEIDA BAEZA ([id number])[facility])[address] [place] [address] [place] CO2 [Moles/Vol] 25 mmol/L Normal 23-31 [facility] Comment on above: Performed By: #### L AB15, LAB43, LAB34 ####Fire Operations Forester: ALEIDA BAEZA ([id number])[facility])[address] [place] [address] [place] Creatinine [Mass/Vol] 1.45 mg/dL High 0.72-1.25 [facility] Comment on above: Performed By: #### L AB15, LAB43, LAB34 ####Fire Operations Forester: ALEIDA BAEZA ([id number])[facility] ([facility])[address] [place] [address] [place] GLOMERULAR FILTRATION RATE ML/MIN/1.73 SQ M.PREDICTED 52.5 mL/min/1.73m*2 Low >60.0 [facility] Comment on above: Result Comment: Calc ulation based on the Chronic Kidney Disease Epidemiology Collaboration (CKD-EPI) equation refit without adjustment for race Performed By: #### L AB15, LAB43, LAB34 ####Fire Operations Forester: ALEIDA BAEZA ([id number])[facility] ([facility])[address] [place] [address] [place] Glucose [Mass/Vol] 136 mg/dL High 82-115 [facility] Comment on above: Performed By: #### L AB15, LAB43, LAB34 ####Fire Operations Forester: ALEIDA BAEZA ([id number])[facility] ([facility])[address] [place] [address] [place] Potassium [Moles/Vol] 2.2 mmol/L Critically low 3.5-5.1 [facility] Comment on above: Result Comment: [facility] potassium values may be up to 0.5 mmol/L lower than serum values. Performed By: #### L AB15, LAB43, LAB34 ####Fire Operations Forester: ALEIDA BAEZA ([id number])[facility] [place] [address] [place] Sodium [Moles/Vol] 122 mmol/L Low 136-145 [facility] Comment on above: Performed By: #### L AB15, LAB43, LAB34 ####Fire Operations Forester: ALEIDA BAEZA ([id number])[facility])[address] [place] [address] [place] Urea nitrogen [Mass/Vol] 24 mg/dL High 9-23 [facility] Comment on above: Performed By: #### L AB15, LAB43, LAB34 ####Fire Operations Forester: ALEIDA BAEZA ([id number])[facility] ([facility])[address] [place] [address] [facility] Anion gap [Moles/Vol] 15 mmol/L High 3-13 [facility] Comment on above: Performed By: #### L AB61, LAB15, [id number], VUF869, ALI255 ####Fire Operations Forester: MELI CARRILLO ([id number])[facility] LYNDSAYRE[facility] ([facility])[address] Calcium [Mass/Vol] 8.3 mg/dL Low 8.8-10.0 [facility] Comment on above: Performed By: #### L AB61, LAB15, [id number], MLU180, JFI355 ####Fire Operations Forester: MELI CARRILLO ([id number])[facility] [place] ([facility])[address] [place] [address] [place] Chloride [Moles/Vol] 87 mmol/L Low 98-107 [facility] Comment on above: Performed By: #### L AB61, LAB15, [id number], QAC682, IVM355 ####Fire Operations Forester: MELI CARRILLO ([id number])[facility] ([facility])[address] CO2 [Moles/Vol] 22 mmol/L Low 23-31 [facility] Comment on above: Performed By: #### L AB61, LAB15, [id number], WGO125, WAB281 ####Fire Operations Forester: MELI CARRILLO ([id number])[facility] ([facility])[address] [place] [address] [place] Creatinine [Mass/Vol] 1.41 mg/dL High 0.72-1.25 [facility] Comment on above: Performed By: #### L AB61, LAB15, [id number], DYL691, VFS176 ####Fire Operations Forester: MELI CARRILLO ([id number])[facility] ([facility])[address] [place] [address] [place] GLOMERULAR FILTRATION RATE ML/MIN/1.73 SQ M.PREDICTED 54.3 mL/min/1.73m*2 Low >60.0 [facility] Comment on above: Result Comment: Calc ulation based on the Chronic Kidney Disease Epidemiology Collaboration (CKD-EPI) equation refit without adjustment for race Performed By: #### L AB61, LAB15, [id number], TQS978, CMB271 ####Fire Operations Forester: MELI CARRILLO ([id number])[facility] ([facility])[address] [place] [address] [place] Glucose [Mass/Vol] 118 mg/dL High 82-115 [facility] Comment on above: Performed By: #### L AB61, LAB15, [id number], VVW095, RVQ220 ####Fire Operations Forester: MELI CARRILLO ([id number])[facility] ([facility])[address] [place] [address] [place] Potassium [Moles/Vol] 2.5 mmol/L Critically low 3.5-5.1 [facility] Comment on above: Result Comment: [facility] potassium values may be up to 0.5 mmol/L lower than serum values. Performed By: #### L AB61, LAB15, [id number], PUT518, LPH938 ####Fire Operations Forester: MELI CARRILLO ([id number])[facility] ([facility])[address] [place] [address] [place] Sodium [Moles/Vol] 124 mmol/L Low 136-145 [facility] Comment on above: Performed By: #### L AB61, LAB15, [id number], AZW321, ZHF900 ####Fire Operations Forester: MELI CARRILLO ([id number])[facility] ([facility])[address] [place] [address] [place] Urea nitrogen [Mass/Vol] 22 mg/dL Normal 9-23 [facility] Comment on above: Performed By: #### L AB61, LAB15, [id number], SMV059, HJE693 ####Fire Operations Forester: MELI CARRILLO ([id number])[facility] ([facility])[address] [place] [address] BLOOD GAS ARTERIALon 025 AMOUNT OF OXYGEN 50 Normal [facility] Comment on above: Performed By: #### L AB76 ####Fire Operations Forester: ALEIDA BAEZA ([id number])[facility])[address] [place] [address] Base excess Calc (Bld) [Moles/Vol] -1.5000 mmol/L Normal -3.0-3.0 [facility] Comment on above: Performed By: #### L AB76 ####Fire Operations Forester: ALEIDA BAEZA ([id number])[facility])[address] [place] [address] CO2 [Moles/Vol] 25.2 mmol/L Normal 23.0-27.0 [facility] Comment on above: Performed By: #### L AB76 ####Fire Operations Forester: ALEIDA BAEZA ([id number])[facility] ([facility])[address] [place] [address] HCO3 (Bld) [Moles/Vol] 23.9 mmol/L Normal 21.0-25.0 [facility] Comment on above: Performed By: #### L AB76 ####Fire Operations Forester: ALEIDA BAEZA ([id number])[facility])[address] [place] [address] Hemoglobin (Bld) [Mass/Vol] 15.5 g/dL Normal Screen only [facility] Comment on above: Performed By: #### L AB76 ####Fire Operations Forester: ALEIDA BAEZA ([id number])[facility])[address] [place] [address] OXYGEN SATURATION (%) IN ARTERIAL BLOOD 98.2 % Normal 95.0-100.0 [facility] Comment on above: Performed By: #### L [id number] ####Fire Operations Forester: ALEIDA [id number])[facility] [place] [address] PCO2 ARTERIAL 42.6 mm Hg Normal >35.0-<45.0 [facility] Comment on above: Performed By: #### L [id number] ####Fire Operations Forester: ALEIDA BAEZA ([id number])[facility] ([facility])[address] [place] [address] PH ARTERIAL 7.367 Normal 7.350-7.450 [facility] Comment on above: Performed By: #### L [id number] ####Fire Operations Forester: ALEIDA BAEZA ([id number])[facility] ([facility])[address] [place] [address] PO2 ARTERIAL 118.2 mm Hg High 80.0-100.0 [facility] Comment on above: Performed By: #### L [id number] ####Fire Operations Forester: ALEIDA BAEZA ([id number])[facility] ([facility])[address] [place] [address] SOURCE OF OXYGEN Ventilator Normal [facility] Comment on above: Performed By: #### L [id number] ####Fire Operations Forester: ALEIDA BAEZA ([id number])[facility] ([facility])[address] [place] [address] Basic metabolic 1998 panelon 05-21-2025 Anion gap [Moles/Vol] 12 mmol/L 3 - 13 mmol/L [facility] Calcium [Mass/Vol] 9.4 mg/dL 8.8 - 10. 0 mg/dL [facility] Chloride [Moles/Vol] 92 mmol/L Low 98 - 10 7 mmol/L [facility] CO2 [Moles/Vol] 24 mmol/L 23 - 31 mmol/L [facility] Creatinine [Mass/Vol] 1.25 mg/dL 0.72 - 1.25 mg/dL [facility] GFR/1.73 sq M.predicted (S/P/Bld) [Vol rate/Area] 62.7 mL/min - PINF [facility] Glucose [Mass/Vol] 134 mg/dL High 82 - 115 mg/dL [facility] Interpretation and review of laboratory results Abnormal [facility] Potassium [Moles/Vol] 3.8 mmol/L 3.5 - 5.1 mmol/L [facility] Sodium [Moles/Vol] 128 mmol/L Low 136 - 145 mmol/L [facility] Urea nitrogen [Mass/Vol] 24 mg/dL High 9 - 23 mg/dL [facility] Anion gap [Moles/Vol] 8 mmol/L 3 - 13 mmol/L [facility] Calcium [Mass/Vol] 9.4 mg/dL 8.8 - 10. 0 mg/dL [facility] Chloride [Moles/Vol] 95 mmol/L Low 98 - 10 7 mmol/L [facility] CO2 [Moles/Vol] 24 mmol/L 23 - 31 mmol/L [facility] Creatinine [Mass/Vol] 1.32 mg/dL High 0.72 - 1.25 mg/dL [facility] GFR/1.73 sq M.predicted (S/P/Bld) [Vol rate/Area] 58.8 mL/min Low - PINF [facility] Glucose [Mass/Vol] 121 mg/dL High 82 - 115 mg/dL [facility] Interpretation and review of laboratory results Abnormal [facility] Potassium [Moles/Vol] 3.7 mmol/L 3.5 - 5.1 mmol/L [facility] Sodium [Moles/Vol] 127 mmol/L Low 136 - 145 mmol/L [facility] Urea nitrogen [Mass/Vol] 24 mg/dL High 9 - 23 mg/dL [facility] Anion gap [Moles/Vol] 10 mmol/L 3 - 13 mmol/L [facility] Calcium [Mass/Vol] 9.2 mg/dL 8.8 - 10. 0 mg/dL [facility] Chloride [Moles/Vol] 93 mmol/L Low 98 - 10 7 mmol/L [facility] CO2 [Moles/Vol] 22 mmol/L Low 23 - 31 mmol/L [facility] Creatinine [Mass/Vol] 1.35 mg/dL High 0.72 - 1.25 mg/dL [facility] GFR/1.73 sq M.predicted (S/P/Bld) [Vol rate/Area] 57.2 mL/min Low - PINF [facility] Glucose [Mass/Vol] 127 mg/dL High 82 - 115 mg/dL [facility] Interpretation and review of laboratory results Abnormal [facility] Potassium [Moles/Vol] 3.7 mmol/L 3.5 - 5.1 mmol/L [facility] Sodium [Moles/Vol] 125 mmol/L Low 136 - 145 mmol/L [facility] Urea nitrogen [Mass/Vol] 24 mg/dL High 9 - 23 mg/dL [facility] Blood pathogens panel GEO+no n-probe (Pos bld culture)Ordered By: Pau Jauregui on 05-21-2025 Interpretation and review of laboratory results Abnormal [facility] mecA/C and MREJ (MRSA) Detected Abnormal Not Detected [facility] S. aureus DNA GEO+non-probe Ql (Pos bld culture) Detected Abnormal Not Detected [facility] C-REACTIVE PROTEINon 025 CRP [Mass/Vol] 134.3 mg/L High <5.0 [facility] Comment on above: Performed By: #### L AB149, LAB15, [id number], [id number] ####Fire Operations Forester: ALEIDA BAEZA ([id number])[facility])[address] [place] [address] CALCIUM, IONIZEDon 5 CALCIUM IONIZED 4.50 mg/dL Normal 4.30-5.20 [facility] Comment on above: Performed By: #### L AB54 ####Fire Operations Forester: ALEIDA BAEZA ([id number])[facility])[address] [place] [address] PH, IONIZED CALCIUM 7.42 Normal 7.31-7.46 [facility] Comment on above: Performed By: #### L AB54 ####Fire Operations Forester: ALEIDA BAEZA ([id number])[facility])[address] [place] [address] CALCIUM IONIZED 4.60 mg/dL Normal 4.30-5.20 [facility] Comment on above: Performed By: #### L AB54 ####Fire Operations Forester: ALEIDA BAEZA ([id number])[facility])[address] [place] [address] PH, IONIZED CALCIUM 7.42 Normal 7.31-7.46 [facility] Comment on above: Performed By: #### L AB54 ####Fire Operations Forester: ALEIDA BAEZA ([id number])[facility] [place] [address] [place] CALCIUM IONIZED 4.30 mg/dL Normal 4.30-5.20 [facility] Comment on above: Performed By: #### L AB54 ####Fire Operations Forester: ALEIDA BAEZA ([id number])[facility] ([facility])[address] [place] [address] [place] PH, IONIZED CALCIUM 7.45 Normal 7.31-7.46 [facility] Comment on above: Performed By: #### L AB54 ####Fire Operations Forester: ALEIDA BAEZA ([id number])[facility] ([facility])[address] [place] [address] [place] CALCIUM IONIZED 4.20 mg/dL Low 4.30-5.20 [facility] Comment on above: Performed By: #### L AB54 ####Fire Operations Forester: ALEIDA BAEZA ([id number])[facility] ([facility])[address] [place] [address] [place] PH, IONIZED CALCIUM 7.45 Normal 7.31-7.46 [facility] Comment on above: Performed By: #### L AB54 ####Fire Operations Forester: ALEIDA BAEZA ([id number])[facility] ([facility])[address] [place] [address] [place] CALCIUM IONIZED 3.90 mg/dL Low 4.30-5.20 [facility] Comment on above: Performed By: #### L AB54 ####Fire Operations Forester: ALEIDA BAEZA ([id number])[facility] ([facility])[address] [place] [address] [place] PH, IONIZED CALCIUM 7.46 Normal 7.31-7.46 [facility] Comment on above: Performed By: #### L AB54 ####Fire Operations Forester: ALEIDA BAEZA ([id number])[facility] ([facility])[address] [place] [address] [place] CALCIUM IONIZED 3.80 mg/dL Low 4.30-5.20 [facility] Comment on above: Performed By: #### L AB54 ####Fire Operations Forester: ALEIDA BAEZA ([id number])[facility])[address] [place] [address] PH, IONIZED CALCIUM 7.38 Normal 7.31-7.46 [facility] Comment on above: Performed By: #### L AB54 ####Fire Operations Forester: ALEIDA BAEZA ([id number])[facility])[address] [place] [address] CBC WITH AUTO DIFFERENTIALon 05-21-2025 Erythrocyte distribution width (RBC) [Ratio] 12.4 % Normal 11.5-15.0 [facility] Comment on above: Performed By: #### L [id number], ZRM8569, IIH5149 ####Fire Operations Forester: ALEIDA BAEZA ([id number])[facility])[address] [place] [address] Hematocrit (Bld) [Volume fraction] 42.0 % Normal 40.0-52.0 [facility] Comment on above: Performed By: #### L CS1201, COY8850, RBN8067 ####Fire Operations Forester: ALEIDA BAEZA ([id number])[facility])[address] [place] [address] Hemoglobin (Bld) [Mass/Vol] 14.9 g/dL Normal 13.0-18.0 [facility] Comment on above: Performed By: #### L OI6122, OJN3610, [id number] ####Fire Operations Forester: ALEIDA BAEZA ([id number])[facility])[address] [place] [address] MCH (RBC) [Entitic mass] 30.5 pg Normal 26.0-34.0 [facility] Comment on above: Performed By: #### L SX8414, BOC0396, YUZ0337 ####Fire Operations Forester: ALEIDA BAEZA ([id number])[facility])[address] [place] [address] MCHC 35.5 % Normal 30.5-36.0 [facility] Comment on above: Performed By: #### L RP9412, YZR0144, [id number] ####Fire Operations Forester: ALEIDA BAEZA ([id number])[facility] ([facility])[address] [place] [address] MCV (RBC) [Entitic vol] 85.9 fL Normal 77.0-99.0 [facility] Comment on above: Performed By: #### L OH3801, DAV4463, NLO7638 ####Fire Operations Forester: ALEIDA BAEZA ([id number])[facility])[address] [place] [address] Platelet mean volume (Bld) [Entitic vol] 9.8 fL Normal 9.0-12.7 [facility] Comment on above: Performed By: #### L XR3195, OIK7564, IYG9036 ####Fire Operations Forester: ALEIDA BAEZA ([id number])[facility])[address] [place] [address] Platelets (Bld) [#/Vol] 161 10*3/uL Normal 140-440 [facility] Comment on above: Performed By: #### L KL9267, HZD5999, ITK2810 ####Fire Operations Forester: ALEIDA BAEZA ([id number])[facility])[address] [place] [address] RBC (Bld) [#/Vol] 4.89 10*6/uL Normal 4.40-5.90 [facility] Comment on above: Performed By: #### L SG4341, LZU8650, XDX5355 ####Fire Operations Forester: ALEIDA BAEZA ([id number])[facility])[address] [place] [address] WBC (Bld) [#/Vol] 30.9 10*3/uL Critically high 3.6-10.7 [facility] Comment on above: Performed By: #### L HI0242, OIL6118, PPR9087 ####Fire Operations Forester: ALEIDA BAEZA ([id number])[facility])[address] [place] [address] CKon 05-21-2025 CK [Catalytic activity/Vol] 86 U/L Normal 30-185 [facility] Comment on above: Performed By: #### L AB134, LAB62 ####Fire Operations Forester: MELI CARRILLO ([id number])[facility] ([facility])[address] CORTISOLon 05-21-2025 CORTISOL 64.6 ug/dL High 3.7-19.4 [facility] Comment on above: Result Comment: ORDE R COMMENTS:Before 10am 4.5-22.7 ug/dLAfter 5pm 1.7-14.1 ug/dL Performed By: #### L AB61, LAB15, [id number], [id number], HEC103 ####Fire Operations Forester: MELI CARRILLO ([id number])[facility] ([facility])[address] CRP [Mass/Vol]on 05-21-2025 Interpretation and review of laboratory results Abnormal [facility] Calcium.ionized [Moles/Vol]o n 05-21-2025 Calcium.ionized (Bld) [Moles/Vol] 4.6 mg/dL 4.30 - 5.20 mg/dL [facility] Interpretation and review of laboratory results Normal [facility] PH, IONIZED CALCIUM 7.42 7.31 - 7.46 [facility] Calcium.ionized (Bld) [Moles/Vol] 4.3 mg/dL 4.30 - 5.20 mg/dL [facility] Interpretation and review of laboratory results Normal [facility] PH, IONIZED CALCIUM 7.45 7.31 - 7.46 [facility] Calcium.ionized (Bld) [Moles/Vol] 4.2 mg/dL Low 4.30 - 5.20 mg/dL [facility] Interpretation and review of laboratory results Abnormal [facility] PH, IONIZED CALCIUM 7.45 7.31 - 7.46 [facility] Consulton 05-21-2025 Consult Normal [facility] Consult Normal [facility] ECG 12-LEADon 05-21-2025 ECG 12-LEAD IMPRESSION: Atrial fibrillation Multiple ventricular premature complexes Left bundle branch block ST elevation secondary to IVCD Electronically Signed On 05-21-2025 05:57:07 EDT by Charlie Mcintyre [facility] ED Nursing Noteon 05-21-2025 ED Nursing Note Report called to Tom lewis RN on T3 MICU at [facility] ED Nursing Note Chilo Thibodeaux macy ort arrived at this time and refused to transport this patient stating they are unable to take intubated patient's that are also on drips. Critical Care transport contacted at this time to take patient to [facility] ED Provider Noteon ED Provider Note Normal [facility] ETHYL GLUCURONIDE SCREEN, UR INEon 05-21-2025 ETHYL GLUCURONIDE, URINE Positive Normal Negative [facility] Comment on above: Result Comment: ANUPAM Alonso COMMENTS:Ethyl Glucuronide has been screened by Immunoassay at a 500 ng/mL threshold. POSITIVE results are not confirmed by a more specific alternative method unless requested. If confirmation is needed, request confirmation under separate order.NOTE: These results are for medical treatment only. Analysis performed using non-forensic procedures.This test has not been cleared by the [place] Food and Drug Administration (FDA). The FDA has determined that such clearance or approval is not necessary. The performance characteristics have been determined by the clinical laboratories of [facility]. Performed By: #### L [id number] ####Fire Operations Forester: ALEIDA BAEZA ([id number])[facility] ([address] HIGH SENSITIVITY TROPONIN, S ERIAL, SECOND TESTon 05-21-2025 2H TROPONIN HS (SERIAL 2ND TROPONIN) 92 ng/L High <=35 [facility] Comment on above: Result Comment: 2h t roponin (2nd troponin) samples collected between 1h 40 min and 2h and 20 min of the baseline collection time can be utilized to interpret delta troponins as per [facility] algorithms. Samples collected outside this timeframe need to be interpreted clinically.Rising or falling troponin delta greater than 15 ng/L as compared to baseline value issignificant for acute cardiac injury. Performed By: #### L AB61, LAB15, [id number], BRH973, UEI036 ####Fire Operations Forester: MELI CARRILLO ([id number])[facility] ([facility])[address] [place] [address] LACTIC ACID WITH REFLEXon Lactate [Moles/Vol] 1.2 mmol/L Normal 0.5-2.2 [facility] Comment on above: Performed By: #### L [id number] ####Fire Operations Forester: ALEIDA BAEZA ([id number])[facility] ([facility])[address] [place] [address] Laboratory - Chemistry and C hemistry - challengeon 05-21-2025 Magnesium [Mass/Vol] 2.1 mg/dL 1.6 - 2 .6 mg/dL [facility] Magnesium [Mass/Vol] 2.2 mg/dL 1.6 - 2 .6 mg/dL [facility] Magnesium [Mass/Vol] 2.6 mg/dL 1.6 - 2 .6 mg/dL [facility] CRP [Mass/Vol] 134.3 mg/L High NINF - 5.0 mg/L [facility] MAGNESIUMon 05-21-2025 Magnesium [Mass/Vol] 2.1 mg/dL Normal 1.6-2.6 [facility] Comment on above: Result Comment: ORDE R COMMENTS:Higher values can be expected in females during menses. Performed By: #### L AB15, KBT961, YUG142 ####Fire Operations Forester: ALEIDA BAEZA ([id number])[facility] ([facility])[address] [place] [address] Magnesium [Mass/Vol] 2.1 mg/dL Normal 1.6-2.6 [facility] Comment on above: Result Comment: ORDE R COMMENTS:Higher values can be expected in females during menses. Performed By: #### L AB15, JZE924, QYB371 ####Fire Operations Forester: ALEIDA BAEZA ([id number])[facility])[address] [place] [address] Magnesium [Mass/Vol] 2.2 mg/dL Normal 1.6-2.6 [facility] Comment on above: Result Comment: ORDE R COMMENTS:Higher values can be expected in females during menses. Performed By: #### L AB15, ILO464, PTP176 ####Fire Operations Forester: ALEIDA BAEZA ([id number])[facility])[address] [place] [address] Magnesium [Mass/Vol] 2.6 mg/dL Normal 1.6-2.6 [facility] Comment on above: Result Comment: ORDE R COMMENTS:Higher values can be expected in females during menses. Performed By: #### L AB15, FMC716, IAE623 ####Fire Operations Forester: ALEIDA BAEZA ([id number])[facility] ([facility])[address] [place] [address] Magnesium [Mass/Vol] 1.8 mg/dL Normal 1.6-2.6 [facility] Comment on above: Result Comment: ORDE R COMMENTS:Higher values can be expected in females during menses. Performed By: #### L AB149, LAB15, WAL324, BOK558 ####Fire Operations Forester: ALEIDA BAEZA ([id number])[facility])[address] [place] [address] Magnesium [Mass/Vol] 1.8 mg/dL Normal 1.6-2.6 [facility] Comment on above: Result Comment: ORDE R COMMENTS:Higher values can be expected in females during menses. Performed By: #### L AB61, LAB15, [id number], QRH007, XCD366 ####Fire Operations Forester: MELI CARRILLO ([id number])[facility] ([facility])[address] [place] [address] MANUAL DIFFERENTIALon 2024 BAND NEUTROPHILS TOTAL PER COUNTED LEUKOCYTES BY MANUAL COUNT 20 Normal [facility] Comment on above: Performed By: #### L SE2688, HXS3655, BTI2210 ####Fire Operations Forester: ALEIDA BAEZA ([id number])[facility])[address] [place] [address] BANDS 6.2 10*3/uL High <=0.0 [facility] Comment on above: Performed By: #### L EM7012, YKT9183, PPJ2797 ####Fire Operations Forester: ALEIDA BAEZA ([id number])[facility] ([facility])[address] [place] [address] CELLS COUNTED TOTAL (#) IN BLOOD 100 Normal [facility] Comment on above: Performed By: #### L BK8381, SIB4931, DRV6352 ####Fire Operations Forester: ALEIDA BAEZA ([id number])[facility])[address] [place] [address] DIFFERENTIAL METHOD Manual differential performed Normal [facility] Comment on above: Result Comment: ORDE R COMMENTS:Slide sent for pathology review Performed By: #### L NW8599, BSP1632, USI4319 ####Fire Operations Forester: ALEIDA BAEZA ([id number])[facility])[address] [place] [address] LYMPHOCYTES (10*3/UL) IN BLOOD BY MANUAL COUNT 0.3 10*3/uL Low 1.0-4.3 [facility] Comment on above: Performed By: #### L ON4582, CPV7510, ZJZ4977 ####Fire Operations Forester: ALEIDA BAEZA ([id number])[facility] ([facility])[address] [place] [address] LYMPHOCYTES TOTAL PER COUNTED LEUKOCYTES BY MANUAL COUNT 1 Normal [facility] Comment on above: Performed By: #### L TF0209, SJL4989, ATP6741 ####Fire Operations Forester: ALEIDA BAEZA ([id number])[facility] ([facility])[address] [place] [address] [place] LYMPHOCYTES/100 LEUKOCYTES IN BLOOD BY MANUAL COUNT 1 % Low 15-45 [facility] Comment on above: Performed By: #### L UW9361, XHB0966, XNU9335 ####Fire Operations Forester: ALEIDA BAEZA ([id number])[facility])[address] [place] [address] [place] MONOCYTES (10*3/UL) IN BLOOD BY MANUAL COUNT 0.9 10*3/uL Normal 0.0-0.9 [facility] Comment on above: Performed By: #### L IA9600, VKN8562, CIV4823 ####Fire Operations Forester: ALEIDA BAEZA ([id number])[facility] ([facility])[address] [place] [address] [place] MONOCYTES TOTAL PER COUNTED LEUKOCYTES BY MANUAL COUNT 3 Normal [facility] Comment on above: Performed By: #### L BW5546, UDB4542, SWW5573 ####Fire Operations Forester: ALEIDA BAEZA ([id number])[facility] ([facility])[address] [place] [address] [place] MONOCYTES/100 LEUKOCYTES IN BLOOD BY MANUAL COUNT 3 % Low 5-13 [facility] Comment on above: Performed By: #### L FU2215, ZSN1279, XVC0528 ####Fire Operations Forester: ALEIDA BAEZA ([id number])[facility] ([facility])[address] [place] [address] [place] NEUTROPHILS (SEGS+BANDS) (10*3/UL) BY MANUAL COUNT 29.7 10*3/uL High 1.8-7.0 [facility] Comment on above: Performed By: #### L ZJ1836, XFW0335, CFG0822 ####Fire Operations Forester: ALEIDA BAEZA ([id number])[facility] ([facility])[address] [place] [address] [place] NEUTROPHILS BAND FORM/100 LEUKOCYTES IN BLOOD BY MANUAL COUNT 20 % High <=0 [facility] Comment on above: Performed By: #### L HR4828, GKI2244, VDN8825 ####Fire Operations Forester: ALEIDA BAEZA ([id number])[facility] ([facility])[address] [place] [address] [place] NEUTROPHILS TOTAL PER COUNTED LEUKOCYTES BY MANUAL COUNT 76 Normal [facility] Comment on above: Performed By: #### L KP6971, VSX5047, MLQ2841 ####Fire Operations Forester: ALEIDA BAEZA ([id number])[facility])[address] [place] [address] [place] PLATELET MORPHOLOGY IN BLOOD Normal Normal [facility] Comment on above: Performed By: #### L OW6322, MEY7436, OPA0202 ####Fire Operations Forester: ALEIDA BAEZA ([id number])[facility])[address] [place] [address] RBC MORPHOLOGY IN BLOOD Normal Normal S [facility] Comment on above: Performed By: #### L SX1174, TFC1838, ATS7240 ####Fire Operations Forester: ALEIDA BAEZA ([id number])[facility] ([facility])[address] [place] [address] SEGEMENTED NEUTROPHILS/100 LEUKOCYTES BY MANUAL COUNT 76 % Normal 38-82 [facility] Comment on above: Performed By: #### L [id number], VUN2738, SGA2089 ####Fire Operations Forester: ALEIDA BAEZA ([id number])[facility] ([facility])[address] [place] [address] SEGMENTED NEUTROPHILS (10*3/UL)IN BLOOD BY MANUAL COUNT 29.7 10*3/uL High 1.8-7.5 [facility] Comment on above: Performed By: #### L LJ8450, ZOS0504, JIF4691 ####Fire Operations Forester: ALEIDA BAEZA ([id number])[facility] ([facility])[address] [place] [address] VACUOLATED NEUTROPHILS PRESENCE IN BLOOD BY LIGHT MICROSCOPY (PRESENT) Present Abnormal (none) [facility] Comment on above: Performed By: #### L [id number], STH9900, IIW0270 ####Fire Operations Forester: ALEIDA BAEZA ([id number])[facility] ([facility])[address] [place] [address] Magnesium [Mass/Vol]on 05-21 [facility] Interpretation and review of laboratory results Normal [facility] No Panel Informationon 05-21 [facility] Interpretation and review of laboratory results Normal [facility] Interpretation and review of laboratory results Normal [facility] No Panel InformationOrdered By: Juju Fajardo on 05-21-2025 ETHYL GLUCURONIDE, URINE Positive Negative [facility] No Panel InformationOrdered By: Gely Foote on 05-21-2025 Pathology Review [facility] Work Phone: [facility] [employer] Work Phone: OSMOLALITY, SERUMon 05-21-20 25 OSMOLALITY, SERUM 260 mOsm/kg Low 280-300 [facility] Comment on above: Performed By: #### L AB107 ####Fire Operations Forester: MELI CARRILLO ([id number])[facility] ([facility])[address] [place] [address] PATHOLOGY REVIEWon 5 PATHOLOGY REVIEW Normal [facility] Comment on above: Result Comment: Leuk ocytosis with absolute neutrophilia and left shift. Blasts are not identified.Nel Foote MD, MPH Performed By: #### L CQ7861, VDF9553, ICN2332 ####Fire Operations Forester: ALEIDA BAEZA ([id number])[facility] ([facility])[address] [place] [address] [place] PHOSPHORUSon 05-21-2025 Phosphate [Mass/Vol] 3.9 mg/dL Normal 2.3-4.7 [facility] Comment on above: Performed By: #### L AB15, TVW697, ALJ793 ####Fire Operations Forester: ALEIDA BAEZA ([id number])[facility] ([facility])[address] [place] [address] Phosphate [Mass/Vol] 3.8 mg/dL Normal 2.3-4.7 [facility] Comment on above: Performed By: #### L AB15, KWH054, OMJ522 ####Fire Operations Forester: ALEIDA BAEZA ([id number])[facility])[address] [place] [address] [place] Phosphate [Mass/Vol] 4.0 mg/dL Normal 2.3-4.7 [facility] Comment on above: Performed By: #### L AB15, QZM295, SZN660 ####Fire Operations Forester: ALEIDA BAEZA ([id number])[facility])[address] [place] [address] [place] Phosphate [Mass/Vol] 4.0 mg/dL Normal 2.3-4.7 [facility] Comment on above: Performed By: #### L AB15, [id number], [id number] ####Fire Operations Forester: ALEIDA BAEZA ([id number])[facility] [place] [address] [place] Phosphate [Mass/Vol] 4.4 mg/dL Normal 2.3-4.7 [facility] Comment on above: Performed By: #### L AB149, LAB15, [id number], [id number] ####Fire Operations Forester: ALEIDA BAEZA ([id number])[facility] [place] [address] [place] Phosphate [Mass/Vol] 1.8 mg/dL Low 2.3-4.7 [facility] Comment on above: Performed By: #### L AB61, [id number], [id number], [id number], [id number] ####Fire Operations Forester: MELI CARRILLO ([id number])[facility] ([facility])[address] [place] [address] [place] PNEUMONIA PCR PANELon 2024 PNEUMONIA PCR PANEL Normal [facility] Comment on above: Performed By: #### L [id number] ####Fire Operations Forester: ALEIDA BAEZA ([id number])[facility] ([facility])[address] [place] [address] [place] Phosphate [Moles/Vol]on 05-03 Phosphate [Mass/Vol] 3.8 mg/dL 2.3 - 4 .7 mg/dL [facility] Interpretation and review of laboratory results Normal [facility] Phosphate [Mass/Vol] 4 mg/dL 2.3 - 4 .7 mg/dL [facility] Phosphate [Mass/Vol] 4 mg/dL 2.3 - 4 .7 mg/dL [facility] Progress Noteon 05-21-2025 Progress Note Normal [facility] Progress Note Normal [facility] Progress Note Normal [facility] Progress Note Normal [facility] RESPIRATORY CULTURE AND STAI Non 05-21-2025 RESPIRATORY CULTURE AND STAIN Normal [facility] Comment on above: Performed By: #### L [id number] ####Fire Operations Forester: ALEIDA BAEZA ([id number])[facility] ([facility])[address] [place] [address] [place] SALICYLATEon 05-21-2025 SALICYLATES <5.0 Low 15.0-30.0 [facility] Comment on above: Performed By: #### L AB15, LAB43, LAB34 ####Fire Operations Forester: ALEIDA BAEZA ([id number])[facility] ([facility])[address] [place] [address] [place] TRIGLYCERIDESon 05-21-2025 Triglyceride [Mass/Vol] 76 mg/dL Normal <150 [facility] Comment on above: Performed By: #### L AB134, LAB62 ####Fire Operations Forester: MELI CARRILLO ([id number])[facility] ([facility])[address] [place] [address] Heart Transthoracicon AV Area by Peak Velocity 1.5 cm2 [facility] AV Area by VTI 1.5 cm2 [facility] AV Peak Gradient 10 mmHg [facility] Global Longitudinal Strain -13.3 % [facility] IVSd 1.1 cm Abnormal 0.6 - 1.0 cm [facility] LA Diameter 5.1 cm [facility] LA Volume 2C 81 mL Abnormal 18 - 58 mL [facility] LA Volume 4C 130 mL Abnormal 18 - 58 mL [facility] LA Volume A/L 119 mL [facility] LA Volume BP 110 mL Abnormal 18 - 58 mL [facility] Left ventricular Ejection fraction by US.2D+Calculated by biplane method of disks 50 % Abnormal 55 - 100 % [facility] LV EDV A2C 212 mL [facility] LV EDV A4C 190 mL [facility] LV EDV BP 203 mL Abnormal 67 - 155 mL [facility] LV Ejection Fraction A2C 50 % [facility] LV Ejection Fraction A4C 50 % [facility] LV ESV A2C 106 mL [facility] LV ESV A4C 95 mL [facility] LV ESV BP 101 mL Abnormal 22 - 58 mL [facility] LVIDd 6.1 cm Abnormal 4.2 - 5.9 cm [facility] LVIDs 4.4 cm [facility] LVOT Cardiac Output 2.9 liter/minute [facility] LVOT Diameter 2.2 cm [facility] LVOT Mean Gradient 1 mmHg [facility] LVOT Peak Gradient 2 mmHg [facility] LVOT Peak Velocity 0.6 m/s [facility] LVOT SV 48.3 ml [facility] LVOT VTI 12.7 cm [facility] LVPWd 1.1 cm Abnormal 0.6 - 1.0 cm [facility] RA Area 4C 186.7 mL [facility] RV Basal Dimension 4.3 cm [facility] RV Free Wall Peak S' 10 cm/s [facility] RV Longitudinal Dimension 6.8 cm [facility] RV Mid Dimension 2 cm [facility] VOLATILE PANEL,SERUMon 05-21 ACETONE, SERUM-CAT LIST <5.0 Normal Toxi c > 20 Reporting Limit 5 mg/dL [facility] Comment on above: Performed By: #### L [id number] ####Fire Operations Forester: ALEIDA BAEZA ([id number])[facility])[address] [place] [address] ETHANOL, SERUM-CAT LIST Not detected Normal Repo rting Limit 0.01 g/dL [facility] Comment on above: Performed By: #### L [id number] ####Fire Operations Forester: ALEIDA BAEZA ([id number])[address] ISOPROPANOL, SERUM-CAT LIST Not detected Normal Toxic > 20 Reporting Limit 5 mg/dL [facility] Comment on above: Result Comment: ANUPAM Alonso COMMENTS:NOTE:These results are for medical treatment only. Analysis performed using non-forensic procedures.This test has not been cleared by the US Food and Drug Administration (FDA). The FDA has determined that such clearance or approval is not necessary. The performance chararcteristics have been determined by the clinical laboratories of [facility]. Performed By: #### L [id number] ####Fire Operations Forester: ALEIDA BAEZA ([id number])[facility])[address] [place] [address] METHANOL, SERUM-CAT LIST Not detected Normal Toxic > 20 mg/dL, Reporting Limit 5 mg/dL [facility] Comment on above: Performed By: #### L [id number] ####Fire Operations Forester: ALEIDA BAEZA ([id number])[address] [place] [address] [place] XR ABDOMEN 1 VIEWon 05-21-20 25 XR ABDOMEN 1 VIEW Normal [facility] XR CHEST 1 VIEWon 05-21-2025 XR CHEST 1 VIEW Normal [facility] BILIRUBIN, DIRECTon 05-20-20 25 Bilirubin.indirect [Mass/Vol] 0.4 mg/dL Normal <0.5 [facility] Comment on above: Performed By: #### L AB129, [id number], LAB46, [id number], [id number], [id number], LAB52, LAB17, [id number] ####Fire Operations Forester: MELI CARRILLO ([id number])[facility] ([facility])[address] [place] [address] BLOOD CULTUREon 05-20-2025 Bacteria identified Cx Nom (Bld) Normal [facility] Comment on above: Performed By: #### L [id number], [id number] ####Fire Operations Forester: ALEIDA BAEZA ([id number])[facility] ([facility])[address] [place] [address] Performed By: #### L [id number] ####Fire Operations Forester: ALEIDA BAEZA ([id number])[facility] ([facility])[address] [place] [address] BLOOD CULTURE IDENTIFICATION - ANAEROBICon 05-20-2025 BLOOD CULTURE IDENTIFICATION - ANAEROBIC Normal [facility] Comment on above: Performed By: #### L [id number], [id number] ####Fire Operations Forester: ALEIDA BAEZA ([id number])[facility] ([facility])[address] [place] [address] BLOOD GAS ARTERIALon 025 AMOUNT OF OXYGEN 100 Normal [facility] Comment on above: Performed By: #### L [id number] ####Fire Operations Forester: MELI CARRILLO ([id number])[facility] ([facility])[address] [place] [address] Base excess Calc (Bld) [Moles/Vol] 3.5 mmol/L High -3.0-3.0 [facility] Comment on above: Performed By: #### L [id number] ####Fire Operations Forester: MELI CARRILLO ([id number])[facility] ([facility])[address] CO2 [Moles/Vol] 26.7 mmol/L Normal 22.0-28.0 [facility] Comment on above: Performed By: #### L [id number] ####Fire Operations Forester: MELI CARRILLO ([id number])[facility] ([facility])[address] HCO3 (Bld) [Moles/Vol] 25.7 mmol/L Normal 21.0-27.0 [facility] Comment on above: Performed By: #### L [id number] ####Fire Operations Forester: MELI CARRILLO ([id number])[facility] ([facility])[address] [place] [address] Hemoglobin (Bld) [Mass/Vol] 16.4 g/dL Normal Screen only [facility] Comment on above: Performed By: #### L [id number] ####Fire Operations Forester: MELI CARRILLO ([phone])[facility] ([facility])[address] OXYGEN SATURATION (%) IN ARTERIAL BLOOD 99.6 % High 97.0-99.0 [facility] Comment on above: Performed By: #### L [id number] ####Fire Operations Forester: MELI CARRILLO ([id number])[facility] ([facility])[address] PCO2 ARTERIAL 32.7 mm Hg Low 35.0-48.0 [facility] Comment on above: Performed By: #### L [id number] ####Fire Operations Forester: MELI CARRILLO ([id number])[facility] ([facility])[address] PH ARTERIAL 7.514 High 7.350-7.450 [facility] Comment on above: Performed By: #### L [id number] ####Fire Operations Forester: MELI CARRILLO ([id number])[facility] ([facility])[address] PO2 ARTERIAL 431.2 mm Hg High 83.0-108.0 [facility] Comment on above: Performed By: #### L [id number] ####Fire Operations Forester: MELI LEEZoniaMASSIEL ([id number])[facility]EREstefania VILLASENORREUN[facility] ([facility])[address] SOURCE OF OXYGEN Non-Invasive Ventilator Normal [facility] Comment on above: Performed By: #### L [id number] ####Fire Operations Forester: MELI CARRILLO ([id number])[facility] ([facility])[address] BLOOD GAS, VENOUSon 05-20-20 25 AMOUNT OF OXYGEN 100 Normal [facility] Comment on above: Result Comment: ANUPAM Alonso COMMENTS:Assessment of oxygenation is best done with an arterial blood gas determination. Reference ranges for pO2, bicarbonate, and base excess are for mixed venous blood. Specimens drawn from a peripheral vein will often have higher values. Performed By: #### L AB79 ####Fire Operations Forester: MELI CARRILLO ([phone])[facility] [place] ([facility])[address] Base excess Calc (BldV) [Moles/Vol] 5.0 mmol/L High -3.0-3.0 [facility] Comment on above: Performed By: #### L [id number] ####Fire Operations Forester: MELI CARRILLO ([id number])[facility] ([facility])[address] CO2 [Moles/Vol] 31.9 mmol/L High 23.0-30.0 [facility] Comment on above: Performed By: #### L [id number] ####Fire Operations Forester: MELI CARRILLO ([id number])[facility] ([facility])[address] HCO3 (Bld) [Moles/Vol] 30.5 mmol/L High 21.0-30.0 [facility] Comment on above: Performed By: #### L AB79 ####Fire Operations Forester: MELI LEEZoniaMASSIEL ([id number])[facility] [place] ([facility])[address] Hemoglobin (Bld) [Mass/Vol] 17.0 g/dL Normal Screen only [facility] Comment on above: Performed By: #### L [id number] ####Fire Operations Forester: MELI PEREZMASSIEL ([id number])[facility] [place] ([facility])[address] OXYGEN (MM HG) IN VENOUS BLOOD 34.5 mm Hg Normal [facility] Comment on above: Performed By: #### L [id number] ####Fire Operations Forester: MELI PEREZMASSIEL ([id number])[facility] [place] ([facility])[address] OXYGEN SATURATION (%) IN VENOUS BLOOD 64.7 % Normal [facility] Comment on above: Performed By: #### L [id number] ####Fire Operations Forester: MELI PEREZMASSIEL ([id number])[facility] [place] ([facility])[address] PCO2, TOSHIA 47.2 mm Hg Normal 38.0-56.0 [facility] Comment on above: Performed By: #### L [id number] ####Fire Operations Forester: MELI PEREZMASSIEL ([id number])[facility] [place] ([facility])[address] PH VENOUS 7.428 High 7.320-7.420 [facility] Comment on above: Performed By: #### L [id number] ####Fire Operations Forester: MELI LEECALDERON ([id number])[facility] [place] ([facility])[address] SOURCE OF OXYGEN Non-Invasive Ventilator Normal [facility] Comment on above: Performed By: #### L [id number] ####Fire Operations Forester: MELI PEREZMASSIEL ([id number])[facility] [place] ([facility])[address] CBC WITH AUTO DIFFERENTIALon 05-20-2025 Erythrocyte distribution width (RBC) [Ratio] 11.9 % Normal 11.5-15.0 [facility] Comment on above: Performed By: #### L [id number], [id number] ####Fire Operations Forester: MELI CARRILLO ([id number])[facility] ([facility])[address] [place] [address] Hematocrit (Bld) [Volume fraction] 43.6 % Normal 40.0-52.0 [facility] Comment on above: Performed By: #### L [id number], [id number] ####Fire Operations Forester: MELI CARRILLO ([id number])[facility] ([facility])[address] [place] [address] Hemoglobin (Bld) [Mass/Vol] 15.7 g/dL Normal 13.0-18.0 [facility] Comment on above: Performed By: #### L [id number], [id number] ####Fire Operations Forester: MELI CARRILLO ([id number])[facility] ([facility])[address] [place] [address] MCH (RBC) [Entitic mass] 30.6 pg Normal 26.0-34.0 [facility] Comment on above: Performed By: #### L [id number], [id number] ####Fire Operations Forester: MELI CARRILLO ([id number])[facility])[address] [place] [address] MCHC 36.0 % Normal 30.5-36.0 [facility] Comment on above: Performed By: #### L [id number], [id number] ####Fire Operations Forester: MELI CARRILLO ([id number])[facility] ([facility])[address] [place] [address] MCV (RBC) [Entitic vol] 85.0 fL Normal 77.0-99.0 [facility] Comment on above: Performed By: #### L [id number], [id number] ####Fire Operations Forester: MELI CARRILLO ([id number])[facility] [place] ([facility])[address] Platelet mean volume (Bld) [Entitic vol] 9.8 fL Normal 9.0-12.7 [facility] Comment on above: Performed By: #### L [id number], [id number] ####Fire Operations Forester: MELI CARRILLO ([id number])[facility] [place] ([facility])[address] Platelets (Bld) [#/Vol] 171 10*3/uL Normal 140-440 [facility] Comment on above: Performed By: #### L [id number], [id number] ####Fire Operations Forester: MELI CARRILLO ([phone])[facility] [place] ([facility])[address] RBC (Bld) [#/Vol] 5.13 10*6/uL Normal 4.40-5.90 [facility] Comment on above: Performed By: #### L [id number], [id number] ####Fire Operations Forester: MELI CARRILLO ([id number])[facility] [place] ([facility])[address] WBC (Bld) [#/Vol] 12.7 10*3/uL High 3.6-10.7 [facility] Comment on above: Performed By: #### L [id number], [id number] ####Fire Operations Forester: MELI CARRILLO ([id number])[facility] [place] ([facility])[address] COMPLETE URINALYSIS WITH REF PHOEBE TO CULTUREon 05-20-2025 AMORPHOUS CRYSTALS (#/HPF) IN URINE Few Abnormal Negative [facility] Comment on above: Performed By: #### L [id number] ####Fire Operations Forester: MELI CARRILLO ([id number])[facility] [place] ([facility])[address] BACTERIA (#/HPF) IN URINE Few Abnormal Negative [facility] Comment on above: Performed By: #### L [id number] ####Fire Operations Forester: MELI CARRILLO ([id number])[facility] ([facility])[address] [place] [address] BILIRUBIN, TOTAL PRESENCE IN URINE Negative Normal Negative [facility] Comment on above: Performed By: #### L [id number] ####Fire Operations Forester: MELI CARRILLO ([phone])[facility] ([facility])[address] Clarity (U) Turbid Abnormal Clear [facility] Comment on above: Performed By: #### L [id number] ####Fire Operations Forester: MELI CARRILLO ([id number])[facility] [place] ([facility])[address] [place] [address] Color (U) Yellow Normal Lt. Yellow [facility] Comment on above: Performed By: #### L [id number] ####Fire Operations Forester: MELI CARRILLO ([id number])[facility] [place] ([facility])[address] [place] [address] Glucose (U) [Mass/Vol] 500 mg/dL Abnormal Normal (<70) [facility] Comment on above: Performed By: #### L [id number] ####Fire Operations Forester: MELI CARRILLO ([id number])[facility] ([facility])[address] [place] [address] [place] GRANULAR CASTS (#/LPF) IN URINE 0-2 Abnormal Negative [facility] Comment on above: Performed By: #### L [id number] ####Fire Operations Forester: MELI CARRILLO ([id number])[facility] ([facility])[address] [place] [address] HEMOGLOBIN PRESENCE IN URINE 0.06 mg/dL Abnormal Negative [facility] Comment on above: Performed By: #### L [id number] ####Fire Operations Forester: MELI CARRILLO ([id number])[facility] [place] ([facility])[address] HYALINE CASTS (#/LPF) IN URINE SEDIMENT BY MICROSCOPY 0-2 Abnormal Negative [facility] Comment on above: Performed By: #### L [id number] ####Fire Operations Forester: MELI PEREZMASSIEL ([id number])[facility] ([facility])[address] Ketones Ql (U) Negative Normal Negative [facility] Comment on above: Performed By: #### L [id number] ####Fire Operations Forester: MELI CARRILLO ([phone])[facility] ([facility])[address] LEUKOCYTE ESTERASE PRESENCE IN URINE BY TEST STRIP Negative Normal Negative [facility] Comment on above: Performed By: #### L [id number] ####Fire Operations Forester: MELI CARRILLO ([phone])[facility] ([facility])[address] [place] [address] [place] MUCUS (#/LPF) IN URINE SEDIMENT Few Normal Negative [facility] Comment on above: Performed By: #### L [id number] ####Fire Operations Forester: MELI CARRILLO ([phone])[facility] [place] ([facility])[address] NITRITE PRESENCE IN URINE Negative Normal Negative [facility] Comment on above: Performed By: #### L [id number] ####Fire Operations Forester: MELI CARRILLO ([id number])[facility] ([facility])[address] NON-SQUAMOUS EPITHELIAL (#/HPF) IN URINE 0-2 Abnormal Negative [facility] Comment on above: Performed By: #### L [id number] ####Fire Operations Forester: MELI CARRILLO ([phone])[facility])[address] pH (U) 5.5 [pH] Normal 5.0-8.0 [facility] Comment on above: Performed By: #### L [id number] ####Fire Operations Forester: MELI PEREZMASSIEL ([id number])[facility] ([facility])[address] Protein (U) [Mass/Vol] 70 mg/dL Abnormal Negative [facility] Comment on above: Performed By: #### L [id number] ####Fire Operations Forester: MELI PEREZMASSIEL ([id number])[facility] ([facility])[address] RBC (#/HPF) IN URINE SEDIMENT 3-5 Abnormal 0-2 [facility] Comment on above: Performed By: #### L [id number] ####Fire Operations Forester: MELI PEREZMASSIEL ([id number])[facility] ([facility])[address] [place] [address] Specific gravity (U) [Rel density] 1.009 Normal 1.005-1.030 [facility] Comment on above: Result Comment: ANUPAM Alonso COMMENTS:A specimen with <=10 WBC is not consistent with inflammation. This specimen will not reflex to a urine culture. Performed By: #### L [id number] ####Fire Operations Forester: MELI PEREZMASSIEL ([id number])[facility] [place] ([facility])[address] SQUAMOUS EPITHELIAL CELLS (#/HPF) IN URINE SEDIMENT 0-2 Normal 3-5 [facility] Comment on above: Performed By: #### L [id number] ####Fire Operations Forester: MELI PEREZMASSIEL ([phone])[facility] ([facility])[address] [place] [address] [place] UROBILINOGEN (MG/DL) IN URINE Normal Normal Normal (0-1) [facility] Comment on above: Performed By: #### L [id number] ####Fire Operations Forester: MELI CARRILLO ([id number])[facility] ([facility])[address] WBC (LEUKOCYTE) (#/HPF) IN URINE SEDIMENT 3-5 Normal 0-5 [facility] Comment on above: Performed By: #### L [id number] ####Fire Operations Forester: MELI CARRILLO ([phone])[facility] [place] ([facility])[address] COMPREHENSIVE METABOLIC PANE Maciel 05-20-2025 Albumin [Mass/Vol] 3.7 g/dL Normal 3.4-4.8 [facility] Comment on above: Performed By: #### L [id number], [id number], LAB46, [id number], [id number], [id number], LAB52, LAB17, [id number] ####Fire Operations Forester: MELI CARRILLO ([id number])[facility] [place] ([facility])[address] [place] [address] ALP [Catalytic activity/Vol] 142 U/L Normal 40-150 [facility] Comment on above: Performed By: #### L [id number], [id number], LAB46, [id number], [id number], [id number], LAB52, LAB17, [id number] ####Fire Operations Forester: MELI CARRILLO ([id number])[facility] [place] ([facility])[address] [place] [address] ALT [Catalytic activity/Vol] 7 U/L Normal <40 [facility] Comment on above: Performed By: #### L AB129, [id number], LAB46, [id number], [id number], [id number], LAB52, LAB17, [id number] ####Fire Operations Forester: MELI CARRILLO ([id number])[facility]EREstefania VILLASENORREUN[facility] [place] ([facility])[address] [place] [address] Anion gap [Moles/Vol] 18 mmol/L High 3-13 [facility] Comment on above: Performed By: #### L AB129, [id number], LAB46, [id number], [id number], SJU303, LAB52, LAB17, [id number] ####Fire Operations Forester: MELI CARRILLO ([id number])[facility] ([facility])[address] AST [Catalytic activity/Vol] 27 U/L Normal <34 [facility] Comment on above: Performed By: #### L AB129, [id number], LAB46, [id number], [id number], GVZ512, LAB52, LAB17, FWR194 ####Fire Operations Forester: MELI CARRILLO ([id number])[facility] ([facility])[address] Bilirubin [Mass/Vol] 1.2 mg/dL High <1.2 [facility] Comment on above: Performed By: #### L AB129, [id number], LAB46, [id number], [id number], [id number], LAB52, LAB17, [id number] ####Fire Operations Forester: MELI PEREZMASSIEL ([id number])[facility] ([facility])[address] [place] [address] Calcium [Mass/Vol] 9.4 mg/dL Normal 8.8-10.0 [facility] Comment on above: Performed By: #### L AB129, [id number], LAB46, [id number], [id number], [id number], LAB52, LAB17, [id number] ####Fire Operations Forester: MELI CARRILLO ([phone])[facility] ([facility])[address] Chloride [Moles/Vol] 78 mmol/L Low 98-107 [facility] Comment on above: Performed By: #### L AB129, HDQ301, LAB46, [id number], [id number], [id number], LAB52, LAB17, QBQ319 ####Fire Operations Forester: MELI CARRILLO ([phone])[facility] ([facility] [place] [address] [place] CO2 [Moles/Vol] 25 mmol/L Normal 23-31 [facility] Comment on above: Performed By: #### L AB129, RME635, LAB46, [id number], [id number], LNH166, LAB52, LAB17, QUP401 ####Fire Operations Forester: MELI CARRILLO ([id number])[facility] ([facility])[address] Creatinine [Mass/Vol] 1.48 mg/dL High 0.72-1.25 [facility] Comment on above: Performed By: #### L AB129, GTX258, LAB46, [id number], [id number], JHT289, LAB52, LAB17, KTC981 ####Fire Operations Forester: MELI CARRILLO ([id number])[facility] ([facility])[address] GLOMERULAR FILTRATION RATE ML/MIN/1.73 SQ M.PREDICTED 51.2 mL/min/1.73m*2 Low >60.0 [facility] Comment on above: Result Comment: Calc ulation based on the Chronic Kidney Disease Epidemiology Collaboration (CKD-EPI) equation refit without adjustment for race Performed By: #### L AB129, [id number], LAB46, [id number], [id number], TWR304, LAB52, LAB17, USL900 ####Fire Operations Forester: MELI CARRILLO ([id number])[facility] ([facility])[address] [place] [address] Glucose [Mass/Vol] 140 mg/dL High 82-115 [facility] Comment on above: Performed By: #### L AB129, ASW079, LAB46, [id number], [id number], OYW533, LAB52, LAB17, OCH056 ####Fire Operations Forester: MELI CARRILLO ([id number])[facility] ([facility])[address] Potassium [Moles/Vol] 3.6 mmol/L Normal 3.5-5.1 [facility] Comment on above: Result Comment: [facility] potassium values may be up to 0.5 mmol/L lower than serum values. Performed By: #### L AB129, NJW739, LAB46, [id number], [id number], DTU411, LAB52, LAB17, XLK231 ####Fire Operations Forester: MELI CARRILLO ([phone])[facility] ([facility])[address] Protein [Mass/Vol] 7.7 g/dL Normal 6.4-8.3 [facility] Comment on above: Performed By: #### L AB129, NWV134, LAB46, [id number], [id number], OSI282, LAB52, LAB17, WFG351 ####Fire Operations Forester: MELI CARRILLO ([id number])[facility] ([facility])[address] [place] [address] Sodium [Moles/Vol] 121 mmol/L Low 136-145 [facility] Comment on above: Performed By: #### L AB129, YOZ754, LAB46, SMG66087, [id number], JNW222, LAB52, LAB17, ZOE212 ####Fire Operations Forester: MELI CARRILLO ([phone])[facility] ([facility])[address] [place] [address] Urea nitrogen [Mass/Vol] 22 mg/dL Normal 9-23 [facility] Comment on above: Performed By: #### L AB129, WQM171, LAB46, [id number], [id number], WXD850, LAB52, LAB17, AXM379 ####Fire Operations Forester: MELI CARRILLO ([phone])[facility] ([facility])[address] [place] [address] CT CHEST ABDOMEN PELVIS WO C ONTRASTon 05-20-2025 CT CHEST ABDOMEN PELVIS WO CONTRAST Normal [facility] CT HEAD WO IV CONTRASTon CT HEAD WO IV CONTRAST Normal [facility] DRUGS OF ABUSEon 05-20-2025 AMPHETAMINE SCREEN Negative Normal [facility] Comment on above: Performed By: #### L AB444, [id number], [id number] ####Fire Operations Forester: MELI CARRILLO ([id number])[facility] ([facility])[address] [place] [address] BARBITURATES SCREEN Negative Normal [facility] Comment on above: Performed By: #### L AB444, [id number], [id number] ####Fire Operations Forester: MELI CARRILLO ([phone])[facility] [place] ([facility])[address] BENZODIAZEPINE SCREEN Negative Normal [facility] Comment on above: Performed By: #### L AB444, [id number], [id number] ####Fire Operations Forester: MELI LEEZoniaMASSIEL ([id number])[facility] [place] ([facility])[address] COCAINE METAB. SCREEN Negative Normal [facility] Comment on above: Performed By: #### L AB444, [id number], [id number] ####Fire Operations Forester: MELI LEECALDERON ([id number])[facility] ([facility])[address] FENTANYL SCREEN, UR QUAL Negative Normal [facility] Comment on above: Result Comment: ANUPAM Alonso COMMENTS:The expected value for all of the drugs listed above is Negative.The following drugs or drug groups have been screened for by Immunoassay at the following thresholds:Amphetamine class (1000 ng/mL)Barbiturates (200 ng/mL)Benzodiazepines (200 ng/mL)Cocaine (300 ng/mL)Methadone (300 ng/mL)Opiates (300 ng/mL)Oxycodone (100 ng/mL)PCP (25 ng/mL)Fentanyl (1.0 ng/ml)NOTE: These results are for medical treatment only. Analysis performed using non-forensic procedures. POSITIVE results are NOT confirmed by a more specificalternative method unless requested. If confirmation is needed, request confirmation under separate order. Performed By: #### L AB444, [id number], [id number] ####Fire Operations Forester: MELI LEECALDERON ([id number])[facility] [place] ([facility])[address] METHADONE SCREEN Negative Normal [facility] Comment on above: Performed By: #### L AB444, [id number], [id number] ####Fire Operations Forester: MELI PEREZMASSIEL ([id number])[facility] ([facility])[address] OPIATES SCREEN Negative Normal [facility] Comment on above: Performed By: #### L AB444, [id number], [id number] ####Fire Operations Forester: MELI PEREZMASSIEL ([id number])[facility] ([facility])[address] OXYCODONE SCREEN Negative Normal [facility] Comment on above: Performed By: #### L AB444, [id number], [id number] ####Fire Operations Forester: MELI LEECALDERON ([id number])[facility] ([facility])[address] PHENCYCLIDINE SCREEN Negative Normal [facility] Comment on above: Performed By: #### L AB444, [id number], [id number] ####Fire Operations Forester: MELI GERARDO ([id number])[facility] ([facility])[address] [place] [address] ED Provider Noteon ED Provider Note Normal [facility] ETHANOLon 05-20-2025 ETHANOL IN SER/PLAS- JACOBO <10 Normal <10 [facility] Comment on above: Result Comment: ANUPAM R COMMENTS:SHEARING MACHINE FEEDER depression is seen >100 mg/dL.NOTE: This result is for medical treatment only. Analysis performed using non-forensic procedures. Performed By: #### L AB129, [id number], LAB46, [id number], [id number], OYA896, LAB52, LAB17, BTY078 ####Fire Operations Forester: MELI LEECALDERON ([phone])[facility] ([facility])[address] HIGH SENSITIVITY TROPONIN, S ERIAL BASELINEon 05-20-2025 TROPONIN HS SERIAL BASELINE 61 ng/L High <=35 [facility] Comment on above: Result Comment: In i ndividuals presenting with symptoms > 2h, a baseline troponin <= 5 ng/L suggests acutecardiac injury is unlikely and further serial testing is generally not indicated. Performed By: #### L AB129, YAL316, LAB46, [id number], [id number], DMH192, LAB52, LAB17, QTZ100 ####Fire Operations Forester: MELI CARRILLO ([id number])[facility]efania VILLASENORRE[facility] ([facility])[address] LACTIC ACID WITH REFLEXon Lactate [Moles/Vol] 3.3 mmol/L High 0.5-2.2 [facility] Comment on above: Performed By: #### L [id number] ####Fire Operations Forester: MELI CARRILLO ([phone])[facility] ([facility])[address] LEGIONELLA AND STREPTOCOCCUS URINE ANTIGENon 05-20-2025 LEGIONELLA AND STREPTOCOCCUS URINE ANTIGEN Normal [facility] Comment on above: Performed By: #### L [id number] ####Fire Operations Forester: ALEIDA BAEZA ([id number])[facility] ([facility])[address] [place] [address] MAGNESIUMon 05-20-2025 Magnesium [Mass/Vol] 1.4 mg/dL Low 1.6-2.6 [facility] Comment on above: Result Comment: ANUPAM Alonso COMMENTS:Higher values can be expected in females during menses. Performed By: #### L AB129, JJY661, LAB46, [id number], [id number], WFR628, LAB52, LAB17, MGM725 ####Fire Operations Forester: MELI CARRILLO ([phone])[facility] ([facility])[address] [place] [address] MANUAL DIFFERENTIAL (CELLAVI WESTON)on 05-20-2025 BAND NEUTROPHILS TOTAL PER COUNTED LEUKOCYTES BY MANUAL COUNT 7 Normal [facility] Comment on above: Performed By: #### L [id number], [id number] ####Fire Operations Forester: MELI CARRILLO ([phone])[facility] ([facility])[address] BANDS (10*3/UL) IN BLOOD-CELLAVISION 0.9 10*3/uL High <=0.0 [facility] Comment on above: Performed By: #### L [id number], [id number] ####Fire Operations Forester: MELI TIDWELLCER ([id number])[facility] [place] ([facility])[address] [place] [address] [place] BASOPHILS TOTAL PER COUNTED LEUKOCYTES BY MANUAL COUNT [facility] Comment on above: Performed By: #### L [id number], [id number] ####Fire Operations Forester: MELI TIDWELLCER ([id number])[facility] [place] ([facility])[address] [place] [address] [place] BLASTS TOTAL PER COUNTED LEUKOCYTES BY MANUAL COUNT Normal [facility] Comment on above: Performed By: #### L [id number], [id number] ####Fire Operations Forester: MELI LEE-MASSIEL ([id number])[facility] [place] ([facility])[address] [place] [address] [place] EOSINOPHILS TOTAL PER COUNTED LEUKOCYTES BY MANUAL COUNT [facility] Comment on above: Performed By: #### L [id number], [id number] ####Fire Operations Forester: MELI PEREZMASSIEL ([id number])[facility] [place] ([facility])[address] [place] [address] [place] LYMPHOCYTES (10*3/UL) IN BLOOD-CELLAVISION 0.0 10*3/uL Low 1.0-4.3 [facility] Comment on above: Performed By: #### L [id number], [id number] ####Fire Operations Forester: MELI CARRILLO ([id number])[facility] ([facility])[address] [place] [address] [place] LYMPHOCYTES TOTAL PER COUNTED LEUKOCYTES BY MANUAL COUNT 0 [facility] Comment on above: Performed By: #### L [id number], [id number] ####Fire Operations Forester: MELI TIDWELLCER ([id number])[facility] ([facility])[address] [place] [address] [place] LYMPHOCYTES/100 LEUKOCYTES IN BLOOD-CELLAVISION 0 % Low 15-45 [facility] Comment on above: Performed By: #### L [id number], [id number] ####Fire Operations Forester: MELI CARRILLO ([id number])[facility] [place] ([facility])[address] [place] [address] [place] METAMYELOCYTES TOTAL PER COUNTED LEUKOCYTES BY MANUAL COUNT Normal [facility] Comment on above: Performed By: #### L [id number], [id number] ####Fire Operations Forester: MELI CARRILLO ([id number])[facility] [place] ([facility])[address] [place] [address] [place] MONOCYTES (10*3/UL) IN BLOOD-CELLAVISION 0.0 10*3/uL Normal 0.0-0.9 [facility] Comment on above: Performed By: #### L [id number], [id number] ####Fire Operations Forester: MELI CARRILLO ([id number])[facility] [place] ([facility])[address] [place] [address] [place] MONOCYTES TOTAL PER COUNTED LEUKOCYTES BY MANUAL COUNT 0 Normal [facility] Comment on above: Performed By: #### L [id number], [id number] ####Fire Operations Forester: MELI CARRILLO ([id number])[facility] [place] ([facility])[address] [place] [address] [place] MONOCYTES/100 LEUKOCYTES IN BLOOD-RIGOBERTO 0 % Low 5-13 [facility] Comment on above: Performed By: #### L [id number], [id number] ####Fire Operations Forester: MELI CARRILLO ([id number])[facility] [place] ([facility])[address] [place] [address] [place] MYELOCYTES COUNTED BY MANUAL COUNT Normal [facility] Comment on above: Performed By: #### L [id number], [id number] ####Fire Operations Forester: MELI CARRILLO ([id number])[facility] [place] ([facility])[address] [place] [address] [place] NEUTROPHILS BAND FORM/100 LEUKOCYTES IN BLOOD-CELLAVISI 7 % High <=0 [facility] Comment on above: Performed By: #### L [id number], [id number] ####Fire Operations Forester: MELI CARRILLO ([id number])[facility] ([facility])[address] [place] [address] [place] NEUTROPHILS TOTAL PER COUNTED LEUKOCYTES BY MANUAL COUNT 96 Normal [facility] Comment on above: Performed By: #### L [id number], [id number] ####Fire Operations Forester: MELI CARRILLO ([id number])[facility] ([facility])[address] [place] [address] [place] PROMYELOCYTES TOTAL PER COUNTED LEUKOCYTES BY MANUAL COUNT [facility] Comment on above: Performed By: #### L [id number], [id number] ####Fire Operations Forester: MELI CARRILLO ([id number])[facility] ([facility])[address] RBC MORPHOLOGY IN BLOOD Normal [facility] Comment on above: Performed By: #### L [id number], [id number] ####Fire Operations Forester: MELI CARRILLO ([id number])[facility] [place] ([facility])[address] [place] [address] [place] SEGMENTED NEUTROPHILS (10*3/UL) IN BLOOD-CELLAVISION 12.7 10*3/uL High 1.8-7.5 [facility] Comment on above: Performed By: #### L [id number], [id number] ####Fire Operations Forester: MELI CARRILLO ([id number])[facility] [place] ([facility])[address] [place] [address] [place] SEGMENTED NEUTROPHILS/100 LEUKOCYTES-CE 93 % High 38-82 [facility] Comment on above: Performed By: #### L [id number], [id number] ####Fire Operations Forester: MELI CARRILLO ([id number])[facility] [place] ([facility])[address] [place] [address] [place] UNCLASSIFIED CELLS TOTAL PER COUNTED LEUKOCYTES BY MANUAL COUNT [facility] Comment on above: Performed By: #### L [id number], [id number] ####Fire Operations Forester: MELI CARRILLO ([id number])[facility] [place] ([facility])[address] [place] [address] [place] VARIANT LYMPHOCYTES TOTAL PER COUNTED LEUKOCYTES BY MANUAL COUNT Normal [facility] Comment on above: Performed By: #### L [id number], [id number] ####Fire Operations Forester: MELI CARRILLO ([phone])[facility] ([facility])[address] NT PRO BNPon 05-20-2025 Natriuretic peptide B (Bld) [Mass/Vol] 7094 pg/mL High <125 [facility] Comment on above: Performed By: #### L AB129, QAT326, LAB46, [id number], [id number], ETL487, LAB52, LAB17, HES816 ####Fire Operations Forester: MELI CARRILLO ([id number])[facility] ([facility])[address] [place] [address] OSMOLALITY, URINEon 05-20-20 25 OSMOLALITY, URINE 244 mOsm/kg Low 300-1000 [facility] Comment on above: Performed By: #### L [id number], [id number], [id number] ####Fire Operations Forester: MELI CARRILLO ([id number])[facility] ([facility])[address] [place] [address] PHOSPHORUSon 05-20-2025 Phosphate [Mass/Vol] 2.4 mg/dL Normal 2.3-4.7 [facility] Comment on above: Performed By: #### L AB129, [id number], LAB46, [id number], [id number], ZEI885, LAB52, LAB17, LDE726 ####Fire Operations Forester: MELI CARRILLO ([id number])[facility] [place] [address] PROCALCITONIN TESTon 025 PROCALCITONIN 0.51 ng/mL High <0.07 [facility] Comment on above: Result Comment: ORDE R COMMENTS:PCT <0.50 = Low risk of severe sepsis and/or septic shock.PCT >2.00 = High risk of severe sepsis and/or septic shock. Performed By: #### L AB129, MDL655, LAB46, [id number], [id number], IXX754, LAB52, LAB17, GFA180 ####Fire Operations Forester: MELI CARRILLO ([id number])[facility] ([facility])[address] [place] [address] RESPIRATORY PATHOGENS PANEL BY PCRon 05-20-2025 RESPIRATORY PATHOGENS PANEL BY PCR Normal [facility] Comment on above: Performed By: #### L [id number] ####Fire Operations Forester: ALEIDA BAEZA ([id number])[facility] ([facility])[address] [place] [address] SARS-COV-2, FLU A/B, AND RSV COMBOon 05-20-2025 SARS-CoV-2 (COVID-19) RNA GEO+probe Ql (Unsp spec) Normal [facility] Comment on above: Performed By: #### L [id number] ####Fire Operations Forester: MELI CARRILLO ([id number])[facility] ([facility])[address] [place] [address] SODIUM, URINE, RANDOMon 05-03 CREATININE, URINE 82.6 mg/dL Normal 63.0-166.0 [facility] Comment on above: Performed By: #### L [id number], [id number], [id number] ####Fire Operations Forester: MELI CARRILLO ([id number])[facility] ([facility])[address] [place] [address] SODIUM, URINE <20 Normal [facility] Comment on above: Performed By: #### L [id number], [id number], [id number] ####Fire Operations Forester: MELI CARRILLO ([id number])[facility] ([facility])[address] [place] [address] SODIUM, URINE, FRACTIONAL EXCRETION <0.3 Normal [facility] Comment on above: Performed By: #### L AB444, [id number], [id number] ####Fire Operations Forester: MELI CARRILLO ([id number])[facility] ([facility])[address] [place] [address] SODIUM, URINE, TUBULAR REABSORPTION >1.0 Normal [facility] Comment on above: Performed By: #### L AB444, [id number], [id number] ####Fire Operations Forester: MELI CARRILLO ([id number])[facility] ([facility])[address] [place] [address] THYROID STIMULATING HORMONEo n 05-20-2025 THYROID STIMULATING HORMONE 0.57 uIU/mL Normal 0.35-4.94 [facility] Comment on above: Performed By: #### L AB129, [id number], LAB46, [id number], [id number], GOC729, LAB52, LAB17, QBF990 ####Fire Operations Forester: MELI CARRILLO ([id number])[facility] ([facility])[address] [place] [address] 36on 05-17-2025 36 Last office visit: 09/28/24 Next office visit: none Normal [facility] 36on 03-18-2025 36 Last office visit: 09/28/24 Next office visit: none Normal [facility] 36on 03-12-2025 36 Last office visit: 09/28/2024 Next office visit: None Normal [facility] 36 Last office visit: 09/28/2024 Next office visit: None Normal [facility] 36on 01-11-2025 36 Last office visit: 09/28/24 Next office visit: none Normal [facility] Progress Noteon 11-19-2024 Progress Note Sent [employer] message to pt encouraging pt to schedule colorectal screening. Normal [facility] Progress Note Normal [facility] 36on 11-05-2024 36 [facility] MRI clinician form/checklist was signed and dated by Dr. Karthik Mendoza on 11-02-2024 and was faxed to [facility] MRI Department on 11-05-2024. Normal [facility] 30on 11-03-2024 30 Normal [facility] 30 Normal [facility] 30 Normal [facility] 30 Normal [facility] [id number] 11-03-2024 [id number] Spoke to patient regarding home care services SN/PT/OT - pt politely declined services and stated he Doesn't feel this is needed." [facility] [id number] 11-03-2024 [id number] [facility] 36on 11-03-2024 36 Last seen 09/06/21, no [address] Rosas requesting JKS appt pt currently in [facility] JKS appt gaby at [facility] on 11/11/24 [facility] 36 Patient is currently in [facility].Dr. Rosas would like patient seen by Dr. Foote and device clinic for pace maker optimization. Could you please call patient and schedule an appt ? Thank you [facility] CBC W Auto Differential pane l (Bld)on 11-03-2024 Basophils (Bld) [#/Vol] 0.1 10*3/uL 0.0 - 0.2 10*3/uL [facility] Basophils/100 WBC (Bld) 1 % 0.0 - 2.0 % [facility] Eosinophils (Bld) [#/Vol] 0.2 10*3/uL 0.0 - 0.5 10*3/uL [facility] Eosinophils/100 WBC (Bld) 3.2 % 0.0 - 6.0 % [facility] Erythrocyte distribution width (RBC) [Ratio] 14 % 11.5 - 15.0 % [facility] Hematocrit (Bld) [Volume fraction] 34.4 % Low 40.0 - 52.0 % [facility] Hemoglobin (Bld) [Mass/Vol] 11.6 g/dL Low 13.0 - 18.0 g/dL [facility] Immature granulocytes (Bld) [#/Vol] 0 10*3/uL NINF - 0.1 10*3/uL [facility] Immature granulocytes/100 WBC (Bld) 0.3 % 0.0 - 2.0 % [facility] Interpretation and review of laboratory results Abnormal [facility] Lymphocytes (Bld) [#/Vol] 1.4 10*3/uL 1.0 - 4.3 10*3/uL [facility] Lymphocytes/100 WBC (Bld) 19.3 % 15.0 - 45.0 % [facility] MCH (RBC) [Entitic mass] 29.8 pg 26.0 - 34.0 pg [facility] MCHC (RBC) [Mass/Vol] 33.7 % 30.5 - 36.0 % [facility] MCV (RBC) [Entitic vol] 88.4 fL 77.0 - 99.0 fL [facility] Monocytes (Bld) [#/Vol] 0.7 10*3/uL 0.0 - 0.9 10*3/uL [facility] Monocytes/100 WBC (Bld) 9.8 % 5.0 - 13.0 % [facility] Neutrophils (Bld) [#/Vol] 4.8 10*3/uL 1.8 - 7.5 10*3/uL [facility] Neutrophils/100 WBC (Bld) 66.4 % 38.0 - 82.0 % [facility] Nucleated RBC/100 WBC (Bld) [Ratio] 0 % [facility] Platelet mean volume (Bld) [Entitic vol] 9.5 fL 9.0 - 12.7 fL [facility] Platelets (Bld) [#/Vol] 223 10*3/uL 140 - 440 10*3/uL [facility] RBC (Bld) [#/Vol] 3.89 10*6/uL Low 4.40 - 5.9 0 10*6/uL [facility] WBC (Bld) [#/Vol] 7.3 10*3/uL 3.6 - 10.7 10*3/uL [facility] CBC WITH AUTO DIFFERENTIALon 11-03-2024 Basophils (Bld) [#/Vol] 0.1 10*3/uL Normal 0.0-0.2 [facility] Comment on above: Performed By: #### L [id number] ####Fire Operations Forester: MELI CARRILLO ([phone])[facility] ([facility])[address] [place] [address] Basophils/100 WBC (Bld) 1.0 % Normal 0.0-2.0 [facility] Comment on above: Performed By: #### L [id number] ####Fire Operations Forester: MELI CARRILLO ([id number])[place] ([facility])[address] Eosinophils (Bld) [#/Vol] 0.2 10*3/uL Normal 0.0-0.5 [facility] Comment on above: Performed By: #### L [id number] ####Fire Operations Forester: MELI CARRILLO ([id number])[facility] ([facility])[address] Eosinophils/100 WBC (Bld) 3.2 % Normal 0.0-6.0 [facility] Comment on above: Performed By: #### L [id number] ####Fire Operations Forester: MELI CARRILLO ([id number])[facility] ([facility])[address] [place] [address] Erythrocyte distribution width (RBC) [Ratio] 14.0 % Normal 11.5-15.0 [facility] Comment on above: Performed By: #### L [id number] ####Fire Operations Forester: MELI CARRILLO ([id number])[facility] ([facility])[address] [place] [address] Hematocrit (Bld) [Volume fraction] 34.4 % Low 40.0-52.0 [facility] Comment on above: Performed By: #### L [id number] ####Fire Operations Forester: MELI CARRILLO ([phone])[facility] ([facility])[address] [place] [address] Hemoglobin (Bld) [Mass/Vol] 11.6 g/dL Low 13.0-18.0 [facility] Comment on above: Performed By: #### L [id number] ####Fire Operations Forester: MELI CARRILLO ([phone])[facility] ([facility])[address] IMMATURE GRANS % 0.3 % Normal 0.0-2.0 [facility] Comment on above: Performed By: #### L [id number] ####Fire Operations Forester: MELI CARRILLO ([id number])[facility] [place] (SBHLAB)[address] IMMATURE GRANS ABSOLUTE 0.0 10*3/uL Normal <0.1 [facility] Comment on above: Performed By: #### L [id number] ####Fire Operations Forester: MELI PEREZMASSIEL ([id number])[facility]ef[facility] [place] (SBHLAB)[address] Lymphocytes (Bld) [#/Vol] 1.4 10*3/uL Normal 1.0-4.3 [facility] Comment on above: Performed By: #### L [id number] ####Fire Operations Forester: MELI CARRILLO ([id number])[facility] (SBHLAB)[address] Lymphocytes/100 WBC (Bld) 19.3 % Normal 15.0-45.0 [facility] Comment on above: Performed By: #### L [id number] ####Fire Operations Forester: MELI CARRILLO ([phone])[facility] [place] (SBHLAB)[address] MCH (RBC) [Entitic mass] 29.8 pg Normal 26.0-34.0 [facility] Comment on above: Performed By: #### L [id number] ####Fire Operations Forester: MELI CARRILLO ([phone])[facility] (SBHLAB)[address] MCHC 33.7 % Normal 30.5-36.0 [facility] Comment on above: Performed By: #### L [id number] ####Fire Operations Forester: MELI CARRILLO ([phone])[facility] [place] (SBHLAB)[address] MCV (RBC) [Entitic vol] 88.4 fL Normal 77.0-99.0 [facility] Comment on above: Performed By: #### L [id number] ####Fire Operations Forester: MELI CARRILLO ([id number])[facility] (SBHLAB)[address] Monocytes (Bld) [#/Vol] 0.7 10*3/uL Normal 0.0-0.9 [facility] Comment on above: Performed By: #### L [id number] ####Fire Operations Forester: MELI CARRILLO ([phone])[facility] [place] (SBHLAB)[address] Monocytes/100 WBC (Bld) 9.8 % Normal 5.0-13.0 [facility] Comment on above: Performed By: #### L [id number] ####Fire Operations Forester: MELI CARRILLO ([id number])[facility] [place] (SBHLAB)[address] NEUTROPHILS ABSOLUTE 4.8 10*3/uL Normal 1.8-7.5 [facility] Comment on above: Performed By: #### L [id number] ####Fire Operations Forester: MELI CARRILLO ([id number])[facility] [place] (SBHLAB)[address] Neutrophils/100 WBC (Bld) 66.4 % Normal 38.0-82.0 [facility] Comment on above: Performed By: #### L [id number] ####Fire Operations Forester: MELI CARRILLO ([id number])[facility] [place] (SBHLAB)[address] NRBC 0.0 /100 WBCs Normal 0.0-2.0 [facility] Comment on above: Performed By: #### L [id number] ####Fire Operations Forester: MELI CARRILLO ([id number])[facility] [place] (SBHLAB)[address] Platelet mean volume (Bld) [Entitic vol] 9.5 fL Normal 9.0-12.7 [facility] Comment on above: Performed By: #### L [id number] ####Fire Operations Forester: MELI CARRILLO ([phone])[facility] [place] (SBHLAB)[address] Platelets (Bld) [#/Vol] 223 10*3/uL Normal 140-440 [facility] Comment on above: Performed By: #### L [id number] ####Fire Operations Forester: MELI CARRILLO ([id number])[facility] [place] (SBHLAB)[address] RBC (Bld) [#/Vol] 3.89 10*6/uL Low 4.40-5.90 [facility] Comment on above: Performed By: #### L [id number] ####Fire Operations Forester: MELI CARRILLO ([phone])[facility] [place] (SBHLAB)[address] WBC (Bld) [#/Vol] 7.3 10*3/uL Normal 3.6-10.7 [facility] Comment on above: Performed By: #### L [id number] ####Fire Operations Forester: MELI CARRILLO ([id number])[facility] [place] (SBHLAB)[address] COMPREHENSIVE METABOLIC PANE Maciel 11-03-2024 Albumin [Mass/Vol] 3.2 g/dL Low 3.4-4.8 [facility] Comment on above: Performed By: #### L AB103, LAB17 ####Fire Operations Forester: MELI CARRILLO ([id number])[facility] [place] (SBHLAB)[address] ALP [Catalytic activity/Vol] 78 U/L Normal 40-150 [facility] Comment on above: Performed By: #### L AB103, LAB17 ####Fire Operations Forester: MELI CARRILLO ([id number])[facility] [place] (SBHLAB)[address] ALT [Catalytic activity/Vol] 6 U/L Normal <40 [facility] Comment on above: Performed By: #### L AB103, LAB17 ####Fire Operations Forester: MELI CARRILLO ([id number])[facility] [place] (SBHLAB)[address] Anion gap [Moles/Vol] 11 mmol/L Normal 3-13 [facility] Comment on above: Performed By: #### L AB103, LAB17 ####Fire Operations Forester: MELI CARRILLO ([id number])[facility] [place] (SBHLAB)[address] AST [Catalytic activity/Vol] 23 U/L Normal <34 [facility] Comment on above: Performed By: #### L AB103, LAB17 ####Fire Operations Forester: MELI CARRILLO ([id number])[facility] [place] (SBHLAB)[address] Bilirubin [Mass/Vol] 0.6 mg/dL Normal <1.2 [facility] Comment on above: Performed By: #### L AB103, LAB17 ####Fire Operations Forester: MELI CARRILLO ([id number])[facility]EREst[facility] [place] (SBHLAB)[address] Calcium [Mass/Vol] 8.9 mg/dL Normal 8.8-10.0 [facility] Comment on above: Performed By: #### L AB103, LAB17 ####Fire Operations Forester: MELI CARRILLO ([id number])[facility]ania [place] (SBHLAB)[address] Chloride [Moles/Vol] 94 mmol/L Low 98-107 [facility] Comment on above: Performed By: #### L AB103, LAB17 ####Fire Operations Forester: MELI CARRILLO ([id number])[facility] [place] (SBHLAB)155 [place] [address] [place] CO2 [Moles/Vol] 27 mmol/L Normal 23-31 [facility] Comment on above: Performed By: #### L AB103, LAB17 ####Fire Operations Forester: MELI CARRILLO ([id number])[facility] [place] (SBHLAB)[address] [place] [address] [place] Creatinine [Mass/Vol] 0.87 mg/dL Normal 0.72-1.25 [facility] Comment on above: Performed By: #### L AB103, LAB17 ####Fire Operations Forester: MELI CARRILLO ([id number])[facility] ([facility])[address] GLOMERULAR FILTRATION RATE ML/MIN/1.73 SQ M.PREDICTED >90.0 Normal >60.0 [facility] Comment on above: Result Comment: Calc ulation based on the Chronic Kidney Disease Epidemiology Collaboration (CKD-EPI) equation refit without adjustment for race Performed By: #### L WANG, LAB17 ####Fire Operations Forester: MELI CARRILLO ([id number])[facility] ([facility])[address] Glucose [Mass/Vol] 112 mg/dL Normal 82-115 [facility] Comment on above: Performed By: #### Araseli PIÑA, LAB17 ####Fire Operations Forester: MELI CARRILLO ([id number])[facility] ([facility])[address] [place] [address] Potassium [Moles/Vol] 3.5 mmol/L Normal 3.5-5.1 [facility] Comment on above: Result Comment: [facility] potassium values may be up to 0.5 mmol/L lower than serum values. Performed By: #### L 103, LAB17 ####Fire Operations Forester: MELI CARRILLO ([id number])[facility] (HLAB)[address] Protein [Mass/Vol] 6.5 g/dL Normal 6.4-8.3 [facility] Comment on above: Performed By: #### L AB103, LAB17 ####Fire Operations Forester: MELI CARRILLO ([id number])[facility] ([facility])[address] [place] [address] Sodium [Moles/Vol] 132 mmol/L Low 136-145 [facility] Comment on above: Performed By: #### L AB103, LAB17 ####Fire Operations Forester: MELI CARRILLO ([id number])[facility]RE[facility] [place] (SBHLAB)[address] Urea nitrogen [Mass/Vol] 27 mg/dL High - [facility] Comment on above: Performed By: #### L AB103, LAB17 ####Fire Operations Forester: MELI CARRILLO ([phone])[facility] (SBHLAB)[address] Comprehensive metabolic 1998 panelon 11-03-2024 Albumin [Mass/Vol] 3.2 g/dL Low 3.4 - 4.8 g/dL [facility] ALP [Catalytic activity/Vol] 78 U/L 40 - 150 U/L [facility] ALT [Catalytic activity/Vol] 6 U/L NINF - 40 U/L [facility] Anion gap [Moles/Vol] 11 mmol/L 3 - 13 mmol/L [facility] AST [Catalytic activity/Vol] 23 U/L NINF - 34 U/L [facility] Bilirubin [Mass/Vol] 0.6 mg/dL NINF - 1.2 mg/dL [facility] Calcium [Mass/Vol] 8.9 mg/dL 8.8 - 10. 0 mg/dL [facility] Chloride [Moles/Vol] 94 mmol/L Low 98 - 10 7 mmol/L [facility] CO2 [Moles/Vol] 27 mmol/L 23 - 31 mmol/L [facility] Creatinine [Mass/Vol] 0.87 mg/dL 0.72 - 1.25 mg/dL [facility] GFR/1.73 sq M.predicted (S/P/Bld) [Vol rate/Area] - PINF [facility] Comment on above: Calculation based on the Chronic Kidney Disease Epidemiology Collaboration (CKD-EPI) equation refit without adjustment for race Glucose [Mass/Vol] 112 mg/dL 82 - 115 mg/dL [facility] Interpretation and review of laboratory results Abnormal [facility] Potassium [Moles/Vol] 3.5 mmol/L 3.5 - 5.1 mmol/L [facility] Comment on above: Plasma potassium natalie ues may be up to 0.5 mmol/L lower than serum values. Protein [Mass/Vol] 6.5 g/dL 6.4 - 8.3 g/dL [facility] Sodium [Moles/Vol] 132 mmol/L Low 136 - 145 mmol/L [facility] Urea nitrogen [Mass/Vol] 27 mg/dL High 9 - 23 mg/dL [facility] ECG 12-LEADon 11-03-2024 ECG 12-LEAD IMPRESSION: Afib and V-paced complexes Electronically Signed On 11-03-2024 12:55:22 EST by Melvi Ocampo Normal [facility] - Chemistry and C hemistry - challengeon 11-03-2024 Magnesium [Mass/Vol] 1.9 mg/dL 1.6 - 2 .6 mg/dL [facility] MAGNESIUMon 11-03-2024 Magnesium [Mass/Vol] 1.9 mg/dL Normal 1.6-2.6 [facility] Comment on above: Result Comment: ANUPAM Alonso COMMENTS:Higher values can be expected in females during menses. Performed By: #### L AB103, LAB17 ####Fire Operations Forester: MELI CARRILLO ([phone])[facility] ([facility])[address] [place] [address] Magnesium [Mass/Vol]on 11-03 Interpretation and review of laboratory results [facility] Higher values can be expected in females during menses. [facility] No Panel InformationOrdered By: Melvi Ocampo on 11-03-2024 P [place] 0 degrees [employer] Work Phone: [facility] Interval 0 ms [employer] Phone: QRS [place] 257 degrees [employer] Phone: QRSD Interval 173 ms [employer] Phone: QT Interval 606 ms [employer] Phone: QTC Interval 612 ms [employer] Phone: T Wave [place] 75 degrees [employer] Phone: [employer] Phone: No Panel Informationon 11-03 Afib and V-paced complexes Electronically Signed On 11-03-2024 12:55:22 EST by Melvi Mendoza MD - 11/03/2024 IMPRESSION: Afib and V-paced complexes Electronically Signed On 11-03-2024 12:55:22 EST by Melvi Ocampo [facility] Nursing Noteon 11-03-2024 Nursing Note Discharge instructio ns given to patient. Verbalizes understanding. IV removed. Awaiting ride. Nicky Crowder RN 11/03/2024 5:27 PM Normal [facility] Progress Noteon 11-03-2024 Progress Note Normal [facility] Progress Note Normal [facility] Progress Note Normal [facility] Progress Note Nutrition rescreen completed. Pt referred to RD for malnutrition. Normal [facility] Progress Note Normal [facility] Vital signsOrdered By: Batsheva Ocampo on 11-03-2024 Heart rate 60 /min bpm [facility] Work Phone: CBC W Auto Differential pane l (Bld)on 11-02-2024 Basophils (Bld) [#/Vol] 0 10*3/uL 0.0 - 0.2 10*3/uL [facility] Basophils/100 WBC (Bld) 0.2 % 0.0 - 2.0 % [facility] Eosinophils (Bld) [#/Vol] 0 10*3/uL 0.0 - 0.5 10*3/uL [facility] Eosinophils/100 WBC (Bld) 0.4 % 0.0 - 6.0 % [facility] Erythrocyte distribution width (RBC) [Ratio] 13.6 % 11.5 - 15.0 % [facility] Hematocrit (Bld) [Volume fraction] 38.6 % Low 40.0 - 52.0 % [facility] Hemoglobin (Bld) [Mass/Vol] 13.3 g/dL 13.0 - 18.0 g/dL [facility] Immature granulocytes (Bld) [#/Vol] 0 10*3/uL NINF - 0.1 10*3/uL [facility] Immature granulocytes/100 WBC (Bld) 0.4 % 0.0 - 2.0 % [facility] Interpretation and review of laboratory results Abnormal [facility] Lymphocytes (Bld) [#/Vol] 1.2 10*3/uL 1.0 - 4.3 10*3/uL [facility] Lymphocytes/100 WBC (Bld) 14.6 % Low 15.0 - 45.0 % [facility] MCH (RBC) [Entitic mass] 30 pg 26.0 - 34.0 pg [facility] MCHC (RBC) [Mass/Vol] 34.5 % 30.5 - 36.0 % [facility] MCV (RBC) [Entitic vol] 86.9 fL 77.0 - 99.0 fL [facility] Monocytes (Bld) [#/Vol] 0.8 10*3/uL 0.0 - 0.9 10*3/uL [facility] Monocytes/100 WBC (Bld) 9.9 % 5.0 - 13.0 % [facility] Neutrophils (Bld) [#/Vol] 6.1 10*3/uL 1.8 - 7.5 10*3/uL [facility] Neutrophils/100 WBC (Bld) 74.5 % 38.0 - 82.0 % [facility] Nucleated RBC/100 WBC (Bld) [Ratio] 0 % [facility] Platelet mean volume (Bld) [Entitic vol] 10.2 fL 9.0 - 12.7 fL [facility] Platelets (Bld) [#/Vol] 234 10*3/uL 140 - 440 10*3/uL [facility] RBC (Bld) [#/Vol] 4.44 10*6/uL 4.40 - 5.9 0 10*6/uL [facility] WBC (Bld) [#/Vol] 8.2 10*3/uL 3.6 - 10.7 10*3/uL [facility] CBC WITH AUTO DIFFERENTIALon 11-02-2024 Basophils (Bld) [#/Vol] 0.0 10*3/uL Normal 0.0-0.2 [facility] Comment on above: Performed By: #### L [id number] ####Fire Operations Forester: MELI CARRILLO ([phone])[facility] [place] [address] Basophils/100 WBC (Bld) 0.2 % Normal 0.0-2.0 [facility] Comment on above: Performed By: #### L [id number] ####Fire Operations Forester: MELI LEEZoniaMASSIEL ([id number])[facility] (SBHLAB)[address] Eosinophils (Bld) [#/Vol] 0.0 10*3/uL Normal 0.0-0.5 [facility] Comment on above: Performed By: #### L [id number] ####Fire Operations Forester: MELI PEREZMASSIEL ([id number])[facility] (SBHLAB)[address] Eosinophils/100 WBC (Bld) 0.4 % Normal 0.0-6.0 [facility] Comment on above: Performed By: #### L [id number] ####Fire Operations Forester: MELI GERARDO ([id number])[facility] [place] ([facility])[address] [place] [address] Erythrocyte distribution width (RBC) [Ratio] 13.6 % Normal 11.5-15.0 [facility] Comment on above: Performed By: #### L [id number] ####Fire Operations Forester: MELI PEREZMASSIEL ([id number])[facility] [place] ([facility])[address] [place] [address] Hematocrit (Bld) [Volume fraction] 38.6 % Low 40.0-52.0 [facility] Comment on above: Performed By: #### L [id number] ####Fire Operations Forester: MELI PEREZMASSIEL ([id number])[facility])[address] Hemoglobin (Bld) [Mass/Vol] 13.3 g/dL Normal 13.0-18.0 [facility] Comment on above: Performed By: #### L [id number] ####Fire Operations Forester: MELI PEREZMASSIEL ([id number])[facility] (SBAB)[address] IMMATURE GRANS % 0.4 % Normal 0.0-2.0 [facility] Comment on above: Performed By: #### L [id number] ####Fire Operations Forester: MELI CARRILLO ([phone])[facility]ENTEREstefania VILLASENORREUN[facility] [place] (SBHLAB)[address] [place] [address] IMMATURE GRANS ABSOLUTE 0.0 10*3/uL Normal <0.1 [facility] Comment on above: Performed By: #### L [id number] ####Fire Operations Forester: MELI CARRILLO ([id number])[facility]ania [place] (SBHLAB)[address] Lymphocytes (Bld) [#/Vol] 1.2 10*3/uL Normal 1.0-4.3 [facility] Comment on above: Performed By: #### L [id number] ####Fire Operations Forester: MELI CARRILLO ([id number])[facility]EREstefania [place] ([facility])[address] [place] [address] Lymphocytes/100 WBC (Bld) 14.6 % Low 15.0-45.0 [facility] Comment on above: Performed By: #### L [id number] ####Fire Operations Forester: MELI CARRILLO ([phone])[facility] ([facility])[address] [place] [address] MCH (RBC) [Entitic mass] 30.0 pg Normal 26.0-34.0 [facility] Comment on above: Performed By: #### L [id number] ####Fire Operations Forester: MELI CARRILLO ([phone])[facility] ([facility])[address] [place] [address] MCHC 34.5 % Normal 30.5-36.0 [facility] Comment on above: Performed By: #### L [id number] ####Fire Operations Forester: MELI CARRILLO ([id number])[facility] (SBAB)[address] [place] [address] MCV (RBC) [Entitic vol] 86.9 fL Normal 77.0-99.0 [facility] Comment on above: Performed By: #### L [id number] ####Fire Operations Forester: MELI CARRILLO ([id number])[facility] [place] (SBHLAB)[address] Monocytes (Bld) [#/Vol] 0.8 10*3/uL Normal 0.0-0.9 [facility] Comment on above: Performed By: #### L [id number] ####Fire Operations Forester: MELI CARRILLO ([phone])[facility] [place] (SBHLAB)[address] Monocytes/100 WBC (Bld) 9.9 % Normal 5.0-13.0 [facility] Comment on above: Performed By: #### L [id number] ####Fire Operations Forester: MELI PEREZMASSIEL ([id number])[facility] [place] (SBHLAB)[address] [place] [address] NEUTROPHILS ABSOLUTE 6.1 10*3/uL Normal 1.8-7.5 [facility] Comment on above: Performed By: #### L [id number] ####Fire Operations Forester: MELI PEREZMASSIEL ([id number])[facility] [place] (SBHLAB)[address] Neutrophils/100 WBC (Bld) 74.5 % Normal 38.0-82.0 [facility] Comment on above: Performed By: #### L [id number] ####Fire Operations Forester: MELI CARRILLO ([id number])[facility] [place] (SBHLAB)[address] NRBC 0.0 /100 WBCs Normal 0.0-2.0 [facility] Comment on above: Performed By: #### L [id number] ####Fire Operations Forester: MELI CARRILLO ([id number])[facility] [place] (SBHLAB)[address] Platelet mean volume (Bld) [Entitic vol] 10.2 fL Normal 9.0-12.7 [facility] Comment on above: Performed By: #### L [id number] ####Fire Operations Forester: MELI CARRILLO ([id number])[facility] [place] (SBHLAB)[address] Platelets (Bld) [#/Vol] 234 10*3/uL Normal 140-440 [facility] Comment on above: Performed By: #### L [id number] ####Fire Operations Forester: MELI CARRILLO ([id number])[facility]SAYTSA[facility]ERN (SBHLAB)[address] RBC (Bld) [#/Vol] 4.44 10*6/uL Normal 4.40-5.90 [facility] Comment on above: Performed By: #### L [id number] ####Fire Operations Forester: MELI PEREZMASSIEL ([phone])[facility] (SB[facility])[address] [place] [address] WBC (Bld) [#/Vol] 8.2 10*3/uL Normal 3.6-10.7 [facility] Comment on above: Performed By: #### L [id number] ####Fire Operations Forester: MELI CARRILLO ([id number])[facility] (SBHLAB)[address] COMPREHENSIVE METABOLIC PANE Maciel 11-02-2024 Albumin [Mass/Vol] 3.7 g/dL Normal 3.4-4.8 [facility] Comment on above: Performed By: #### L [id number] ####Fire Operations Forester: MELI CARRILLO ([phone])[facility] (SB[facility])[address] ALP [Catalytic activity/Vol] 78 U/L Normal 40-150 [facility] Comment on above: Performed By: #### L AB17 ####Fire Operations Forester: MELI CARRILLO ([id number])[facility] ([facility])[address] ALT [Catalytic activity/Vol] 11 U/L Normal <40 [facility] Comment on above: Performed By: #### L AB17 ####Fire Operations Forester: MELI CARRILLO ([id number])[facility] ([facility])[address] Anion gap [Moles/Vol] 10 mmol/L Normal 3-13 [facility] Comment on above: Performed By: #### L AB17 ####Fire Operations Forester: MELI CARRILLO ([phone])[facility] (SBHLAB)[address] AST [Catalytic activity/Vol] 49 U/L High <34 [facility] Comment on above: Result Comment: TCSi gnificant interference from hemolysis. Result integrity compromised. Interpret with caution. Performed By: #### L AB17 ####Fire Operations Forester: MELI CARRILLO ([id number])[facility] (SB[facility])[address] Bilirubin [Mass/Vol] 1.1 mg/dL Normal <1.2 [facility] Comment on above: Performed By: #### L AB17 ####Fire Operations Forester: MELI CARRILLO ([id number])[facility] (HLAB)[address] Calcium [Mass/Vol] 9.6 mg/dL Normal 8.8-10.0 [facility] Comment on above: Performed By: #### L AB17 ####Fire Operations Forester: MELI CARRILLO ([id number])[facility] (SB[facility])[address] Chloride [Moles/Vol] 90 mmol/L Low 98-107 [facility] Comment on above: Performed By: #### L [id number] ####Fire Operations Forester: MELI CARRILLO ([id number])[facility] ([facility])[address] CO2 [Moles/Vol] 29 mmol/L Normal 23-31 [facility] Comment on above: Performed By: #### L AB17 ####Fire Operations Forester: MELI CARRILLO ([id number])[facility] ([facility])[address] Creatinine [Mass/Vol] 0.86 mg/dL Normal 0.72-1.25 [facility] Comment on above: Performed By: #### L [id number] ####Fire Operations Forester: MELI CARRILLO ([id number])[facility] ([facility])[address] GLOMERULAR FILTRATION RATE ML/MIN/1.73 SQ M.PREDICTED >90.0 Normal >60.0 [facility] Comment on above: Result Comment: Calc ulation based on the Chronic Kidney Disease Epidemiology Collaboration (CKD-EPI) equation refit without adjustment for race Performed By: #### L AB17 ####Fire Operations Forester: MELI CARRILLO ([id number])[facility] Glucose [Mass/Vol] 116 mg/dL High 82-115 [facility] Comment on above: Performed By: #### L AB17 ####Fire Operations Forester: MELI CARRILLO ([id number])[facility] Potassium [Moles/Vol] 5.0 mmol/L Normal 3.5-5.1 [facility] Comment on above: Result Comment: TCSi gnificant interference from hemolysis. Result integrity compromised. Interpret with caution. Performed By: #### L [id number] ####Fire Operations Forester: MELI CARRILLO ([phone])[facility] ([facility])[address] Protein [Mass/Vol] 8.2 g/dL Normal 6.4-8.3 [facility] Comment on above: Result Comment: TCPo tential interference from hemolysis Performed By: #### L [id number] ####Fire Operations Forester: MEIL CARRILLO ([id number])[facility] (HLAB)[address] [place] [address] [place] Sodium [Moles/Vol] 129 mmol/L Low 136-145 [facility] Comment on above: Performed By: #### L [id number] ####Fire Operations Forester: MELIIVELISSE CARRILLO ([id number])[facility] (SBHLAB)[address] Urea nitrogen [Mass/Vol] 15 mg/dL Normal 9-23 [facility] Comment on above: Performed By: #### L [id number] ####Fire Operations Forester: MELI GERARDO ([id number])[facility] (SBHLAB)[address] Comprehensive metabolic 1998 panelOrdered By: Darlene Almanzar on 11-02-2024 Albumin [Mass/Vol] 3.7 g/dL 3.4 - 4.8 g/dL [facility] ALP [Catalytic activity/Vol] 78 U/L 40 - 150 U/L [facility] ALT [Catalytic activity/Vol] 11 [facility] Anion gap [Moles/Vol] 10 mmol/L 3 - 13 mmol/L [facility] AST [Catalytic activity/Vol] 49 U/L [facility]/L [facility] Comment on above: TC Significant interference from hemolysis. Result integrity compromised. Interpret with caution. Bilirubin [Mass/Vol] 1.1 mg/dL NINF - 1.2 mg/dL [facility] Calcium [Mass/Vol] 9.6 mg/dL 8.8 - 10. 0 mg/dL [facility] Chloride [Moles/Vol] 90 mmol/L Low 98 - 10 7 mmol/L [facility] CO2 [Moles/Vol] 29 mmol/L 23 - 31 mmol/L [facility] Creatinine [Mass/Vol] 0.86 mg/dL 0.72 - 1.25 mg/dL [facility] GFR/1.73 sq M.predicted (S/P/Bld) [Vol rate/Area] - PINF [facility] Comment on above: Calculation based on the Chronic Kidney Disease Epidemiology Collaboration (CKD-EPI) equation refit without adjustment for race Glucose [Mass/Vol] 116 mg/dL High 82 - 115 mg/dL [facility] Interpretation and review of laboratory results Abnormal [facility] Potassium [Moles/Vol] 5 mmol/L 3.5 - 5.1 mmol/L [facility] Comment on above: TC Significant interference from hemolysis. Result integrity compromised. Interpret with caution. Protein [Mass/Vol] 8.2 g/dL 6.4 - 8.3 g/dL [facility] Comment on above: TC Potential interference from hemolysis Sodium [Moles/Vol] 129 mmol/L Low 136 - 145 mmol/L [facility] Urea nitrogen [Mass/Vol] 15 mg/dL 9 - 23 mg/dL [facility] Consulton 11-02-2024 Consult Normal [facility] ECG 12-LEADon 11-02-2024 ECG 12-LEAD Normal [facility] Laboratory - Drug toxicology Ordered By: Lauryn Saba on 11-02-2024 Amphetamines Ql (U) Negative Negative [facility] Barbiturates screen method Nom (U) Negative Negative [facility] Benzodiazepines screen method Nom (U) Negative Negative [facility] Cocaine Ql (U) Negative Negative [facility] Ethanol [Mass/Vol] Negative Negative [facility] Methadone Ql (U) Negative Negative [facility] Opiates Screen Ql (U) Negative Negative [facility] No Panel Informationon 11-02 Leonel Laurent MD PhD 11/02/2024 7:18 PM [facility] [address] [place] [address] ROUTINE EEG REPORT Patient Name: Krystina Markham : 1955 Date of Study: 11/02/2024 Duration Recorded: 23 minutes EEG#: [id number] [employer]IMMER [employer] OPERATOR: Jamin Dominguez PROVIDER REQUESTING STUDY: Letty Subramanian MD REASON FOR EXAM: Altered mental status. DIAGNOSIS TAG: Transient Neurologic Symptoms (TNS) HISTORY: Krystina Markham is a 69 y.o. male with history of n brief, Krystina Markham is a 69 y.o. that presents to the emergency department after being found unresponsive by his this afternoon. Last seen normal around 7 AM. Patient is confused. He denies complaints. He denies headache, numbness, weakness, shortness of breath, chest pain, abdominal pain. MEDICATIONS: Current Facility-Administered Medications Medication Dose Route Frequency Provider Last Rate Last Admin acetaminophen (Tylenol) tablet 650 mg 650 mg Oral q6h PRN Sukumar South MD Or acetaminophen (Tylenol) suppository 650 mg 650 mg Rectal q6h PRN Sukumar South MD apixaban (Eliquis) tablet 5 mg 5 mg Oral BID Sukumar South MD 5 mg at 11/02/24 0943 dapagliflozin (Farxiga) tablet 5 mg 5 mg Oral Daily Sukumar South MD 5 mg at 11/02/24 0943 folic acid (Folvite) tablet 1 mg 1 mg Oral Daily Sukumar South MD 1 mg at 11/02/24 0943 ipratropium-albuterol (Duo-Neb) 0.5-2.5 mg/3 mL nebulizer solution 3 mL 3 mL Nebulization q4h PRN Sukumar South MD losartan (Cozaar) tablet 25 mg 25 mg Oral Daily Sukumar South MD 25 mg at 11/02/24 0944 metoprolol succinate XL (Toprol-XL) 24 hr tablet 100 mg 100 mg Oral BID Sukumar South MD 100 mg at 11/02/24 0943 mometasone-formoterol (Dulera 100) 100-5 MCG/ACT inhaler 2 puff 2 puff Inhalation BID Sukumar South MD 2 puff at 11/02/24 0942 montelukast (Singulair) tablet 10 mg 10 mg Oral Nightly Sukumar South MD 10 mg at 11/01/24 2215 nicotine (Nicoderm, Step 2) 14 MG/24HR patch 1 patch 1 patch TransDERmal Daily Sukumar South MD polyethylene glycol (PEG) 3350 (Miralax) packet 17 g 17 g Oral Daily PRN Sukumar South MD rosuvastatin (Crestor) tablet 40 mg 40 mg Oral Daily Sukumar South MD 40 mg at 11/02/24 0944 [Held by provider] sertraline (Zoloft) tablet 100 mg 100 mg Oral Daily Sukumar South MD spironolactone (Aldactone) tablet 25 mg 25 mg Oral Daily Sukumar South MD 25 mg at 11/02/24 0943 tiotropium (Spiriva Respimat) 2.5 MCG/ACT inhaler 2 puff 2 puff Inhalation Daily Sukumar South MD 2 puff at 11/02/24 0942 torsemide (Demadex) tablet 20 mg 20 mg Oral Daily Sukumar Buffy South MD 20 mg at 11/02/24 0969 Current Outpatient Medications Medication Sig Dispense Refill albuterol (2.5 MG/3ML) 0.083% nebulizer solution Take 3 mL (2.5 mg) by nebulization as needed for wheezing or shortness of breath. 75 mL 3 apixaban (Eliquis) 5 MG tablet Take 1 tablet (5 mg) by mouth 2 times daily. 60 tablet 11 dapagliflozin (Farxiga) 5 MG tablet Take 1 tablet (5 mg) by mouth daily. 30 tablet 11 Sweyggptkrb-Cdpezhbee-Xq lant (Trelegy Ellipta) 100-62.5-25 MCG/ACT aerosol powder Inhale 1 puff daily. (Patient not taking: Reported on 10/14/2024) 2 each 0 folic acid (Folvite) 1 MG tablet Take 1 tablet (1 mg) by mouth daily. 30 tablet 1 losartan (Cozaar) 25 MG tablet Take 1 tablet (25 mg) by mouth daily. 15 tablet 3 metoprolol succinate XL (Toprol-XL) 100 MG 24 hr tablet Take 1 tablet (100 mg) by mouth 2 times daily. Do not crush or chew. 180 tablet 0 montelukast (Singulair) 10 MG tablet Take 1 tablet (10 mg) by mouth Nightly. 90 tablet 0 rosuvastatin (Crestor) 40 MG tablet Take 1 tablet (40 mg) by mouth daily. 30 tablet 3 sertraline (Zoloft) 100 MG tablet Take 1 tablet (100 mg) by mouth daily. 30 tablet 3 spironolactone (Aldactone) 25 MG tablet Take 1 tablet (25 mg) by mouth daily. 30 tablet 5 torsemide (Demadex) 20 MG tablet Take 2 tablets (40 mg) by mouth 2 times daily. (Patient not taking: Reported on 10/14/2024) 120 tablet 2 torsemide (Demadex) 20 MG tablet Take 2.5 tablets (50 mg) by mouth 2 times daily for 7 days. 35 tablet 0 TECHNICAL ASPECTS: This routine scalp EEG study with video was carried out at [place]. Scalp electrodes were positioned in person by an nanotechnologist, following patient education, according to the 10-20 International system of electrode placement and maintained for integrity and quality of the recording. . EEG data with video was recorded continuously and digitally stored. The nanotechnologist reviewed all automated detections and manual events and prepared the data for archiving and provider review. Referential and bipolar montages were used for review. TECHNOLOGIST NOTES: No skull or scalp defects were observed. BACKGROUND ACTIVITY: Posterior background activity: A continuous organized and wel (more content not included)... [facility] Afib/flut and V-pace d complexes Biventricular paced rhythm No further rhythm analysis attempted due to paced rhythm Nonspecific intraventricular conduction delay Nonspecific repol abnrm, anterolateral leads Prolonged QT interval Electronically Signed On 11-02-2024 03:55:31 EST by Kalia Foote CV Kalia Feng MD - 11/02/2024 IMPRESSION: Afib/flut and V-paced complexes Biventricular paced rhythm No further rhythm analysis attempted due to paced rhythm Nonspecific intraventricular conduction delay Nonspecific repol abnrm, anterolateral leads Prolonged QT interval Electronically Signed On 11-02-2024 03:55:31 EST by Kalia Foote [facility] No Panel InformationOrdered By: Lauryn Saba on 11-02-2024 BUPRENORPHINE SCREEN Negative Negative [facility] FENTANYL Negative Negative [facility] OXYCODONE/OXYMORPHONE Negative Negative [facility] PCP Negative Negative [facility] THC Negative Negative [facility] The expected value f or the drugs listed above is Negative. The following drugs or drug groups have been screened for by Immunoassay at the following thresholds: Amphetamine class(1000ng/mL) Barbituates(200ng/mL) Benzodiazepines(200ng/mL ) Cocaine(300ng/mL) Ethanol (50 ng/mL) Methadone(300ng/mL) Opiates(300ng/mL) Oxycodone(100ng/mL) PCP(25ng/mL) Buprenorphine(5ng/mL) THC(50ng/mL) Fentanyl(1ng/mL) Positive results are NOT confirmed by a more specific alternative method unless requested. If confirmation is needed, request confirmation under separate order. NOTE: These results are for medical treatment only. Analysis performed using non-forensic procedures. [facility] No Panel InformationOrdered By: Kalia Foote on 11-02-2024 P [place] 0 degrees [facility] Work Phone: VA Interval 0 ms [facility] Work Phone: QRS [place] 93 degrees [facility] Work Phone: [phone] QRSD Interval 191 ms [facility] Work Phone: QT Interval 604 ms [facility] Work Phone: QTC Interval 625 ms [facility] Work Phone: T Wave [place] 266 degrees [facility] Work Phone: [facility] Work Phone: [phone] Progress Noteon 11-02-2024 Progress Note Normal [facility] Progress Note Normal [facility] Progress Note Normal [facility] Progress Note Normal [facility] Vital signsOrdered By: Boaz Foote on 11-02-2024 Heart rate 64 /min bpm [facility] Work Phone: AMMONIAon 11-01-2024 Ammonia (P) [Moles/Vol] 31 umol/L Normal 18-72 S [facility] Comment on above: Performed By: #### L [id number] ####Fire Operations Forester: MELI CARRILLO ([id number])[facility] [place] (SBHLAB)[address] [place] [address] BASIC METABOLIC PANELon Anion gap [Moles/Vol] 10 mmol/L Normal 3-13 [facility] Comment on above: Performed By: #### L [id number], [id number], LAB20, LAB15, [id number] ####Fire Operations Forester: MELI CARRILLO ([id number])[facility]EREstefania [facility]ENTERBERNADETTE (SBHLAB)[address] [place] [address] Calcium [Mass/Vol] 9.0 mg/dL Normal 8.8-10.0 [facility] Comment on above: Performed By: #### L [id number], [id number], LAB20, LAB15, [id number] ####Fire Operations Forester: MELI CARRILLO ([id number])[facility] (SBHLAB)[address] [place] [address] [place] Chloride [Moles/Vol] 88 mmol/L Low 98-107 [facility] Comment on above: Performed By: #### L [id number], [id number], LAB20, LAB15, [id number] ####Fire Operations Forester: MELI CARRILLO ([id number])[facility]EREstefania [facility]RE[facility] (SBHLAB)[address] CO2 [Moles/Vol] 29 mmol/L Normal 23-31 [facility] Comment on above: Performed By: #### L [id number], [id number], LAB20, LAB15, [id number] ####Fire Operations Forester: MELI CARRILLO ([id number])[facility] ([facility])[address] Creatinine [Mass/Vol] 0.78 mg/dL Normal 0.72-1.25 [facility] Comment on above: Performed By: #### Araseli [id number], [id number], LAB20, LAB15, [id number] ####Fire Operations Forester: MELI CARRILLO ([id number])[facility] [place] (SBHLAB)[address] GLOMERULAR FILTRATION RATE ML/MIN/1.73 SQ M.PREDICTED >90.0 Normal >60.0 [facility] Comment on above: Result Comment: Calc ulation based on the Chronic Kidney Disease Epidemiology Collaboration (CKD-EPI) equation refit without adjustment for race Performed By: #### L [id number], [id number], LAB20, LAB15, [id number] ####Fire Operations Forester: MELI CARRILLO ([id number])[facility]EREstefania [facility]ILL[facility]ENORREUN[facility] [place] (SBHLAB)[address] [place] [address] [place] Glucose [Mass/Vol] 151 mg/dL High 82-115 [facility] Comment on above: Performed By: #### L [id number], [id number], LAB20, LAB15, NND401 ####Fire Operations Forester: MELI CARRILLO ([id number])[facility] (SBHLAB)[address] [place] [address] [place] Potassium [Moles/Vol] 3.7 mmol/L Normal 3.5-5.1 [facility] Comment on above: Result Comment: [facility] potassium values may be up to 0.5 mmol/L lower than serum values. Performed By: #### L [id number], [id number], LAB20, LAB15, [id number] ####Fire Operations Forester: MELI CARRILLO ([id number])[facility] TRUM[facility]ULLShannon (SBHLAB)[address] [place] [address] [place] Sodium [Moles/Vol] 127 mmol/L Low 136-145 [facility] Comment on above: Performed By: #### L [id number], [id number], LAB20, LAB15, [id number] ####Fire Operations Forester: MELI CARRILLO ([id number])[facility] ([facility])[address] Urea nitrogen [Mass/Vol] 11 mg/dL Normal 9-23 [facility] Comment on above: Performed By: #### L [id number], [id number], LAB20, LAB15, [id number] ####Fire Operations Forester: MELI CARRILLO ([id number])[facility] ([facility])[address] [place] [address] BLOOD GAS, VENOUSon 11-02-19 25 AMOUNT OF OXYGEN Normal [facility] Comment on above: Result Comment: ANUPAM Alonso COMMENTS:Assessment of oxygenation is best done with an arterial blood gas determination. Reference ranges for pO2, bicarbonate, and base excess are for mixed venous blood. Specimens drawn from a peripheral vein will often have higher values. Performed By: #### L [id number] ####Fire Operations Forester: MELI CARRILLO ([id number])[facility] (SBHLAB)[address] Base excess Calc (BldV) [Moles/Vol] 3.5 mmol/L High -3.0-3.0 [facility] Comment on above: Performed By: #### L [id number] ####Fire Operations Forester: MELI CARRILLO ([id number])[facility] (SBAB)[address] [place] [address] [place] CO2 [Moles/Vol] 32.6 mmol/L High 23.0-30.0 [facility] Comment on above: Performed By: #### L [id number] ####Fire Operations Forester: MELI CARRILLO ([phone])[facility]ENTERA [place] (SBHLAB)[address] HCO3 (Bld) [Moles/Vol] 30.8 mmol/L High 21.0-30.0 [facility] Comment on above: Performed By: #### L [id number] ####Fire Operations Forester: MELI CARRILLO ([id number])[facility]A [place] (SBHLAB)[address] Hemoglobin (Bld) [Mass/Vol] 13.7 g/dL Normal Screen only [facility] Comment on above: Performed By: #### L [id number] ####Fire Operations Forester: MELI CARRILLO ([id number])[facility]A [facility] (SBHLAB)[address] OXYGEN (MM HG) IN VENOUS BLOOD 30.4 mm Hg Normal [facility] Comment on above: Performed By: #### L [id number] ####Fire Operations Forester: MELI CARRILLO ([id number])[facility]A [facility] (SBHLAB)[address] OXYGEN SATURATION (%) IN VENOUS BLOOD 53.1 % Normal [facility] Comment on above: Performed By: #### L [id number] ####Fire Operations Forester: MELI CARRILLO ([id number])[facility]A [facility] (SBHLAB)[address] [place] [address] [place] PCO2, TOSHIA 58.2 mm Hg High 38.0-56.0 [facility] Comment on above: Performed By: #### L [id number] ####Fire Operations Forester: MELI CARRILLO ([id number])[facility] BARBREUN[facility] [place] (SBHLAB)[address] [place] [address] [place] PH VENOUS 7.341 Normal 7.320-7.420 [facility] Comment on above: Performed By: #### L [id number] ####Fire Operations Forester: MELI CARRILLO ([id number])[facility] (SBHLAB)[address] SOURCE OF OXYGEN Nasal Cannula (LPM) Normal [facility] Comment on above: Performed By: #### L [id number] ####Fire Operations Forester: MELI CARRILLO ([id number])[facility] (SBHLAB)[address] Basic metabolic 1998 panelon 11-01-2024 Anion gap [Moles/Vol] 10 mmol/L 3 - 13 mmol/L [facility] Calcium [Mass/Vol] 9 mg/dL 8.8 - 10. 0 mg/dL [facility] Chloride [Moles/Vol] 88 mmol/L Low 98 - 10 7 mmol/L [facility] CO2 [Moles/Vol] 29 mmol/L 23 - 31 mmol/L [facility] Creatinine [Mass/Vol] 0.78 mg/dL 0.72 - 1.25 mg/dL [facility] GFR/1.73 sq M.predicted (S/P/Bld) [Vol rate/Area] - PINF [facility] Comment on above: Calculation based on the Chronic Kidney Disease Epidemiology Collaboration (CKD-EPI) equation refit without adjustment for race Glucose [Mass/Vol] 151 mg/dL High 82 - 115 mg/dL [facility] Potassium [Moles/Vol] 3.7 mmol/L 3.5 - 5.1 mmol/L [facility] Comment on above: Plasma potassium natalie ues may be up to 0.5 mmol/L lower than serum values. Sodium [Moles/Vol] 127 mmol/L Low 136 - 145 mmol/L [facility] Urea nitrogen [Mass/Vol] 11 mg/dL 9 - 23 mg/dL [facility] CBC W Auto Differential pane l (Bld)on 11-01-2024 Basophils (Bld) [#/Vol] 0.1 10*3/uL 0.0 - 0.2 10*3/uL [facility] Basophils/100 WBC (Bld) 0.7 % 0.0 - 2.0 % [facility] Eosinophils (Bld) [#/Vol] 0.1 10*3/uL 0.0 - 0.5 10*3/uL [facility] Eosinophils/100 WBC (Bld) 1.3 % 0.0 - 6.0 % [facility] Erythrocyte distribution width (RBC) [Ratio] 13.2 % 11.5 - 15.0 % [facility] Hematocrit (Bld) [Volume fraction] 36.7 % Low 40.0 - 52.0 % [facility] Hemoglobin (Bld) [Mass/Vol] 12.6 g/dL Low 13.0 - 18.0 g/dL [facility] Immature granulocytes (Bld) [#/Vol] 0 10*3/uL NINF - 0.1 10*3/uL [facility] Immature granulocytes/100 WBC (Bld) 0.4 % 0.0 - 2.0 % [facility] Interpretation and review of laboratory results Abnormal [facility] Lymphocytes (Bld) [#/Vol] 0.8 10*3/uL Low 1.0 - 4.3 10*3/uL [facility] Lymphocytes/100 WBC (Bld) 10 % Low 15.0 - 45.0 % [facility] MCH (RBC) [Entitic mass] 29.9 pg 26.0 - 34.0 pg [facility] MCHC (RBC) [Mass/Vol] 34.3 % 30.5 - 36.0 % [facility] MCV (RBC) [Entitic vol] 87.2 fL 77.0 - 99.0 fL [facility] Monocytes (Bld) [#/Vol] 0.5 10*3/uL 0.0 - 0.9 10*3/uL [facility] Monocytes/100 WBC (Bld) 6.5 % 5.0 - 13.0 % [facility] Neutrophils (Bld) [#/Vol] 6.1 10*3/uL 1.8 - 7.5 10*3/uL [facility] Neutrophils/100 WBC (Bld) 81.1 % 38.0 - 82.0 % [facility] Nucleated RBC/100 WBC (Bld) [Ratio] 0 % [facility] Platelet mean volume (Bld) [Entitic vol] 9.3 fL 9.0 - 12.7 fL [facility] Platelets (Bld) [#/Vol] 229 10*3/uL 140 - 440 10*3/uL [facility] RBC (Bld) [#/Vol] 4.21 10*6/uL Low 4.40 - 5.9 0 10*6/uL [facility] WBC (Bld) [#/Vol] 7.6 10*3/uL 3.6 - 10.7 10*3/uL [facility] CBC WITH AUTO DIFFERENTIALon 11-01-2024 Basophils (Bld) [#/Vol] 0.1 10*3/uL Normal 0.0-0.2 [facility] Comment on above: Performed By: #### L [id number] ####Fire Operations Forester: MELI CARRILLO ([id number])[facility] [place] (SBHLAB)[address] Basophils/100 WBC (Bld) 0.7 % Normal 0.0-2.0 [facility] Comment on above: Performed By: #### L [id number] ####Fire Operations Forester: MELI CARRILLO ([id number])[facility] [place] (SBHLAB)[address] Eosinophils (Bld) [#/Vol] 0.1 10*3/uL Normal 0.0-0.5 [facility] Comment on above: Performed By: #### L [id number] ####Fire Operations Forester: MELI CARRILLO ([id number])[facility] [place] (SBHLAB)[address] [place] [address] Eosinophils/100 WBC (Bld) 1.3 % Normal 0.0-6.0 [facility] Comment on above: Performed By: #### L [id number] ####Fire Operations Forester: MELI CARRILLO ([id number])[facility] [place] (SBHLAB)[address] Erythrocyte distribution width (RBC) [Ratio] 13.2 % Normal 11.5-15.0 [facility] Comment on above: Performed By: #### L [id number] ####Fire Operations Forester: MELI CARRILLO ([id number])[facility] [place] (SBHLAB)[address] Hematocrit (Bld) [Volume fraction] 36.7 % Low 40.0-52.0 [facility] Comment on above: Performed By: #### L [id number] ####Fire Operations Forester: MELI CARRILLO ([id number])[facility] (SBAB)[address] Hemoglobin (Bld) [Mass/Vol] 12.6 g/dL Low 13.0-18.0 [facility] Comment on above: Performed By: #### L [id number] ####Fire Operations Forester: MELI CARRILLO ([id number])[facility] ([facility])[address] IMMATURE GRANS % 0.4 % Normal 0.0-2.0 [facility] Comment on above: Performed By: #### L [id number] ####Fire Operations Forester: MELI CARRILLO ([id number])[facility] ([facility])[address] IMMATURE GRANS ABSOLUTE 0.0 10*3/uL Normal <0.1 [facility] Comment on above: Performed By: #### L [id number] ####Fire Operations Forester: MELI CARRILLO ([id number])[facility] ([facility])[address] [place] [address] Lymphocytes (Bld) [#/Vol] 0.8 10*3/uL Low 1.0-4.3 [facility] Comment on above: Performed By: #### L [id number] ####Fire Operations Forester: MELI CARRILLO ([phone])[facility] ([facility])[address] Lymphocytes/100 WBC (Bld) 10.0 % Low 15.0-45.0 [facility] Comment on above: Performed By: #### L [id number] ####Fire Operations Forester: MELI CARRILLO ([id number])[facility] ([facility])[address] MCH (RBC) [Entitic mass] 29.9 pg Normal 26.0-34.0 [facility] Comment on above: Performed By: #### L [id number] ####Fire Operations Forester: MELI CARRILLO ([id number])[facility] [place] (SBHLAB)[address] MCHC 34.3 % Normal 30.5-36.0 [facility] Comment on above: Performed By: #### L [id number] ####Fire Operations Forester: MELI CARRILLO ([id number])[facility] [place] (SBHLAB)[address] MCV (RBC) [Entitic vol] 87.2 fL Normal 77.0-99.0 [facility] Comment on above: Performed By: #### L [id number] ####Fire Operations Forester: MELI CARRILLO ([id number])[facility] [place] ([facility])[address] Monocytes (Bld) [#/Vol] 0.5 10*3/uL Normal 0.0-0.9 [facility] Comment on above: Performed By: #### L [id number] ####Fire Operations Forester: MELI CARRILLO ([phone])[facility] [place] ([facility]HL[facility])[address] Monocytes/100 WBC (Bld) 6.5 % Normal 5.0-13.0 [facility] Comment on above: Performed By: #### L [id number] ####Fire Operations Forester: MELI CARRILLO ([id number])[facility] [place] ([facility])[address] NEUTROPHILS ABSOLUTE 6.1 10*3/uL Normal 1.8-7.5 [facility] Comment on above: Performed By: #### L [id number] ####Fire Operations Forester: MELI CARRILLO ([id number])[facility] [place] ([facility])[address] Neutrophils/100 WBC (Bld) 81.1 % Normal 38.0-82.0 [facility] Comment on above: Performed By: #### L [id number] ####Fire Operations Forester: MELI CARRILLO ([id number])[facility] [place] ([facility])[address] NRBC 0.0 /100 WBCs Normal 0.0-2.0 [facility] Comment on above: Performed By: #### L [id number] ####Fire Operations Forester: MELI CARRILLO ([id number])[facility] [place] ([facility])[address] Platelet mean volume (Bld) [Entitic vol] 9.3 fL Normal 9.0-12.7 [facility] Comment on above: Performed By: #### L [id number] ####Fire Operations Forester: MELI CARRILLO ([id number])[facility] [place] ([facility])[address] Platelets (Bld) [#/Vol] 229 10*3/uL Normal 140-440 [facility] Comment on above: Performed By: #### L [id number] ####Fire Operations Forester: MELI CARRILLO ([id number])[facility] [place] ([facility])[address] RBC (Bld) [#/Vol] 4.21 10*6/uL Low 4.40-5.90 [facility] Comment on above: Performed By: #### L [id number] ####Fire Operations Forester: MELI CARRILLO ([id number])[facility] [place] ([facility])[address] [place] [address] [place] WBC (Bld) [#/Vol] 7.6 10*3/uL Normal 3.6-10.7 [facility] Comment on above: Performed By: #### L [id number] ####Fire Operations Forester: MELI CARRILLO ([id number])[facility] [place] ([facility])[address] [place] [address] [place] CKon 03-02-2025 CK [Catalytic activity/Vol] 150 U/L Normal 30-185 [facility] Comment on above: Performed By: #### L [id number], [id number] ####Fire Operations Forester: MELI CARRILLO ([id number])[facility]ENTEREstefania [facility] ([facility])[address] CK [Catalytic activity/Vol]o n 11-01-2024 Interpretation and review of laboratory results Normal [facility] COMPLETE URINALYSISon 2024 BACTERIA (#/HPF) IN URINE Negative Normal Negative [facility] Comment on above: Performed By: #### L [id number] ####Fire Operations Forester: MELI CARRILLO ([id number])[facility] ([facility])[address] BILIRUBIN, TOTAL PRESENCE IN URINE Negative Normal Negative [facility] Comment on above: Performed By: #### L [id number] ####Fire Operations Forester: MELI CARRILLO ([id number])[facility] ([facility])[address] Clarity (U) Clear Normal Clear [facility] Comment on above: Performed By: #### L [id number] ####Fire Operations Forester: MELI CARRILLO ([id number])[facility] ([facility])[address] Color (U) Light Yellow Normal Lt. Yellow [facility] Comment on above: Performed By: #### L [id number] ####Fire Operations Forester: MELI CARRILLO ([id number])[facility] ([facility])[address] GLUCOSE (MG/DL) IN URINE 1,000 mg/dL Abnormal Normal (<70) [facility] Comment on above: Performed By: #### L [id number] ####Fire Operations Forester: MELI CARRILLO ([phone])[facility] ([facility])[address] HEMOGLOBIN PRESENCE IN URINE Negative Normal Negative [facility] Comment on above: Performed By: #### L [id number] ####Fire Operations Forester: MELI CARRILLO ([id number])[facility] ([facility])[address] [place] [address] HYALINE CASTS (#/LPF) IN URINE SEDIMENT BY MICROSCOPY 3-5 Abnormal Negative [facility] Comment on above: Performed By: #### L [id number] ####Fire Operations Forester: MELI CARRILLO ([id number])[facility] ([facility])[address] Ketones Ql (U) Negative Normal Negative [facility] Comment on above: Performed By: #### L [id number] ####Fire Operations Forester: MELI CARRILLO ([phone])[facility] ([facility])[address] [place] [address] LEUKOCYTE ESTERASE PRESENCE IN URINE BY TEST STRIP Negative Normal Negative [facility] Comment on above: Performed By: #### L [id number] ####Fire Operations Forester: MELI CARRILLO ([id number])[facility] ([facility])[address] [place] [address] NITRITE PRESENCE IN URINE Negative Normal Negative [facility] Comment on above: Performed By: #### L [id number] ####Fire Operations Forester: MELI CARRILLO ([id number])[facility] ([facility])[address] [place] [address] pH (U) 6.5 [pH] Normal 5.0-8.0 [facility] Comment on above: Performed By: #### L [id number] ####Fire Operations Forester: MELI CARRILLO ([phone])[facility] ([facility])[address] [place] [address] Protein (U) [Mass/Vol] 10 mg/dL Abnormal Negative [facility] Comment on above: Performed By: #### L [id number] ####Fire Operations Forester: MELI CARRILLO ([id number])[facility] [place] ([facility])[address] RBC (#/HPF) IN URINE SEDIMENT 0-2 Normal 0-2 [facility] Comment on above: Performed By: #### L [id number] ####Fire Operations Forester: MELI CARRILLO ([id number])[facility] [place] ([facility])[address] Specific gravity (U) [Rel density] 1.009 Normal 1.005-1.030 [facility] Comment on above: Performed By: #### L [id number] ####Fire Operations Forester: MELI CARRILLO ([id number])[facility] [place] ([facility])[address] SPERMATOZOA (#/HPF) IN URINE SEDIMENT Few Abnormal Negative [facility] Comment on above: Performed By: #### L [id number] ####Fire Operations Forester: MELI CARRILLO ([id number])[facility] [place] ([facility])[address] SQUAMOUS EPITHELIAL CELLS (#/HPF) IN URINE SEDIMENT Negative Normal 3-5 [facility] Comment on above: Performed By: #### L [id number] ####Fire Operations Forester: MELI CARRILLO ([id number])[facility] [place] ([facility])[address] UROBILINOGEN (MG/DL) IN URINE Normal Normal Normal (0-1) [facility] Comment on above: Performed By: #### L [id number] ####Fire Operations Forester: MELI CARRILLO ([id number])[facility] [place] ([facility])[address] WBC (LEUKOCYTE) (#/HPF) IN URINE SEDIMENT 0-2 Normal 0-5 [facility] Comment on above: Performed By: #### L [id number] ####Fire Operations Forester: MELI CARRILLO ([id number])[facility] [place] ([facility])[address] HEAD WO IV CONTRASTon CT HEAD WO IV CONTRAST Normal [facility] CT Head WO contraston 2024 No acute intracrania l hemorrhage or mass effect. Report Dictated on Electronically Signed By: Alek Erazo MD Electronically Signed Date/Time: 11/01/2024 3:19 PM [facility] Patient Name: KRYSTINA LYNCH : 1955 Exam Date/Time: 11/01/2024 14:34 Procedure: CT HEAD WO IV CONTRAST Ordering Provider: WONG MICHAEL Reason For Exam: Mental status change, unknown cause CT HEAD: CLINICAL INDICATION: Mental status change TECHNIQUE: Transaxial CT sequence performed through the head with 3 mm reconstruction. Sagittal and Coronal reconstruction images included. Dose reduction was employed with automated exposure control. COMPARISON: 08/20/2024 FINDINGS: Ventricles and sulci are prominent, consistent with age-related cerebral volume loss. There are scattered foci of hypoattenuation in the periventricular and subcortical white matter, which is nonspecific, but commonly seen with chronic small vessel ischemia. No extra-axial collection. No acute intracranial hemorrhage. No mass effect or midline shift. No CT evidence of an acute large territorial infarction. Vascular calcifications noted at the skull base. Imaged paranasal sinuses and mastoid air cells are well aerated. Calvarium is unremarkable. [facility] Alek Erazo MD - 11/01/2024 Patient Name: KRYSTINA MARKHAM : 1955 Exam Date/Time: 11/01/2024 14:34 Procedure: CT HEAD WO IV CONTRAST Ordering Provider: WONG MICHAEL Reason For Exam: Mental status change, unknown cause CT HEAD: CLINICAL INDICATION: Mental status change TECHNIQUE: Transaxial CT sequence performed through the head with 3 mm reconstruction. Sagittal and Coronal reconstruction images included. Dose reduction was employed with automated exposure control. COMPARISON: 08/20/2024 FINDINGS: Ventricles and sulci are prominent, consistent with age-related cerebral volume loss. There are scattered foci of hypoattenuation in the periventricular and subcortical white matter, which is nonspecific, but commonly seen with chronic small vessel ischemia. No extra-axial collection. No acute intracranial hemorrhage. No mass effect or midline shift. No CT evidence of an acute large territorial infarction. Vascular calcifications noted at the skull base. Imaged paranasal sinuses and mastoid air cells are well aerated. Calvarium is unremarkable. IMPRESSION: No acute intracranial hemorrhage or mass effect. Report Dictated on Electronically Signed By: Alek Erazo MD Electronically Signed Date/Time: 11/01/2024 3:19 PM EST [facility] Radiology Study observation (narrative) [facility] CT Head WO contrastOrdered B y: Alek Erazo on 11-01-2024 [facility] Work Phone: ED Nursing Noteon 11-01-2024 ED Nursing Note RT called for breath ing TX. Normal [facility] ED Nursing Note Pt placed on 4 lpm n franco canula due to hypoxia. Normal [facility] ED Nursing Note Unknown last know we ll. Best estimated time would be around 0700 when left for sikhism. Normal [facility] ED Nursing Note Normal [facility] ED Provider Noteon ED Provider Note Normal [facility] ETHANOLon 11-01-2024 ETHANOL IN SER/PLAS <10 Normal <10 [facility] Comment on above: Result Comment: This sample may have been collected by using an alcohol pad to swab the skin. Ethanol-containing antiseptics before venipuncture may not be causes of spurious or false positive results of alcohol measurement at least when ideal venipunctures can be performed. However, under non-ideal collection conditions, alcohol contamination is a possibility. Results to be correlated clinically.ORDER COMMENTS:SHEARING MACHINE FEEDER depression is seen >100 mg/dL.NOTE: This result is for medical treatment only. Analysis performed using non-forensic procedures. Performed By: #### L [id number], [id number] ####Fire Operations Forester: MELI CARRILLO ([phone])[facility] ([facility])[address] [place] [address] Ethanol (Bld) [Mass/Vol]on 0 11-01-2024 Ethanol [Mass/Vol] mg/dL NINF - 10 mg/dL [facility] Comment on above: This sample may have been collected by using an alcohol pad to swab the skin. Ethanol-containing antiseptics before venipuncture may not be causes of spurious or false positive results of alcohol measurement at least when ideal venipunctures can be performed. However, under non-ideal collection conditions, alcohol contamination is a possibility. Results to be correlated clinically. Interpretation and review of laboratory results Normal [facility] SHEARING MACHINE FEEDER depression is se en >100 mg/dL. NOTE: This result is for medical treatment only. Analysis performed using non-forensic procedures. [facility] HEPATIC FUNCTION PANELon Albumin [Mass/Vol] 3.6 g/dL Normal 3.4-4.8 [facility] Comment on above: Performed By: #### L [id number], [id number], LAB20, LAB15, [id number] ####Fire Operations Forester: MELI CARRILLO ([id number])[facility] ([facility])[address] [place] [address] ALP [Catalytic activity/Vol] 90 U/L Normal 40-150 [facility] Comment on above: Performed By: #### L [id number], [id number], LAB20, LAB15, [id number] ####Fire Operations Forester: MELI CARRILLO ([id number])[facility] ([facility])[address] [place] [address] ALT [Catalytic activity/Vol] 10 U/L Normal <40 [facility] Comment on above: Performed By: #### L [id number], [id number], LAB20, LAB15, [id number] ####Fire Operations Forester: MELI CARRILLO ([id number])[facility] ([facility])[address] AST [Catalytic activity/Vol] 30 U/L Normal <34 [facility] Comment on above: Performed By: #### L [id number], [id number], LAB20, LAB15, [id number] ####Fire Operations Forester: MELI CARRILLO ([id number])[facility] ([facility])[address] [place] [address] [place] Bilirubin [Mass/Vol] 1.1 mg/dL Normal <1.2 [facility] Comment on above: Performed By: #### L [id number], [id number], LAB20, LAB15, [id number] ####Fire Operations Forester: MELI CARRILLO ([phone])[facility] ([facility])[address] [place] [address] Bilirubin.indirect [Mass/Vol] 0.5 mg/dL High <0.5 [facility] Comment on above: Performed By: #### L [id number], [id number], LAB20, LAB15, [id number] ####Fire Operations Forester: MELI CARRILLO ([id number])[facility] ([facility])[address] [place] [address] Protein [Mass/Vol] 7.3 g/dL Normal 6.4-8.3 [facility] Comment on above: Result Comment: Seru m protein values are higher than plasma values. Samples from recumbent persons are lower by up to 0.5 g/dL as compared to ambulatory persons. After 60 years values are lower by up to 0.2 g/dL. Performed By: #### L [id number], [id number], LAB20, LAB15, [id number] ####Fire Operations Forester: MELI CARRILLO ([id number])[facility] ([facility])[address] [place] [address] HIGH SENSITIVITY TROPONIN, S ERIAL BASELINEon 11-01-2024 TROPONIN HS SERIAL BASELINE 16 ng/L Normal <=35 [facility] Comment on above: Result Comment: In i ndividuals presenting with symptoms > 2h, a baseline troponin <= 5 ng/L suggests acutecardiac injury is unlikely and further serial testing is generally not indicated. Performed By: #### L [id number], [id number], LAB20, LAB15, [id number] ####Fire Operations Forester: MELI CARRILLO ([id number])[facility] ([facility])[address] [place] [address] HIGH SENSITIVITY TROPONIN, S ERIAL, SECOND TESTon 11-01-2024 2H TROPONIN HS (SERIAL 2ND TROPONIN) 20 ng/L Normal <=35 [facility] Comment on above: Result Comment: Risi ng or falling troponin delta between 2 ??? 15 ng/L as compared to baseline value requires a 3rd serial troponin Performed By: #### L AB46, [id number] ####Fire Operations Forester: MELI LEEMASSIEL ([id number])[facility] ([facility])[address] HIGH SENSITIVITY TROPONIN, S ERIAL, THIRD TESTon 11-01-2024 4H TROPONIN HS (SERIAL 3RD TROPONIN) 24 ng/L Normal <=35 [facility] Comment on above: Result Comment: Risi ng or falling troponin delta between 2 ??? 15 ng/L as compared to 2h troponin valuerequires further evaluation. Performed By: #### L AB62, [id number] ####Fire Operations Forester: MELIIVELISSE LEEMASSIEL ([id number])[facility] ([facility])[address] Hepatic function 2000 panelo n 11-01-2024 Albumin [Mass/Vol] 3.6 g/dL 3.4 - 4.8 g/dL [facility] ALP [Catalytic activity/Vol] 90 U/L 40 - 150 U/L [facility] ALT [Catalytic activity/Vol] 10 [facility] AST [Catalytic activity/Vol] 30 U/L [facility] - [facility] U/L [facility] Bilirubin [Mass/Vol] 1.1 mg/dL [facility] - 1.2 mg/dL [facility] Bilirubin.conjugated [Mass/Vol] 0.5 mg/dL High NINF - 0.5 mg/dL [facility] Protein [Mass/Vol] 7.3 g/dL 6.4 - 8.3 g/dL [facility] Comment on above: Serum protein values are higher than plasma values. Samples from recumbent persons are lower by up to 0.5 g/dL as compared to ambulatory persons. After 60 years values are lower by up to 0.2 g/dL. Laboratory - Chemistry and C hemistry - challengeon 11-01-2024 CK [Catalytic activity/Vol] 150 U/L 30 - 185 U/L [facility] Ammonia (P) [Moles/Vol] 31 umol/L 18 - 72 umol/L [facility] Magnesium [Mass/Vol] 1.7 mg/dL 1.6 - 2 .6 mg/dL [facility] Laboratory - Chemistry and C hemistry - challengeOrdered By: Chilo Mayo on 11-01-2024 Base excess Calc (BldV) [Moles/Vol] 3.5 mmol/L High -3.0 - 3.0 mmol/L [facility] CO2 (BldV) [Partial pressure] 58.2 mm[Hg] High [facility] CO2 [Moles/Vol] 32.6 mmol/L High 23.0 - 30.0 mmol/L [facility] HCO3 (Bld) [Moles/Vol] 30.8 mmol/L High 21.0 - 30.0 mmol/L [facility] Oxygen (BldV) [Partial pressure] 30.4 mm[Hg] mm Hg [facility] pH (BldV) 7.341 [pH] 7.320 - 7.420 [facility] Laboratory - Hematology and Cell countsOrdered By: Chilo Mayo on 11-01-2024 Hemoglobin (Bld) [Mass/Vol] 13.7 g/dL Screen only [facility] Laboratory - Microbiology an d Antimicrobial susceptibilityon 11-01-2024 FLUAV RNA GEO+probe Ql (Resp) Not detected Not Detected [facility] FLUBV RNA GEO+probe Ql (Resp) Not detected Not Detected [facility] RSV RNA GEO+probe Ql (Resp) Not detected Not Detected [facility] SARS-CoV-2 (COVID-19) RNA GEO+probe Ql (Resp) Not detected Not Detected [facility] SARS-CoV-2 (COVID-19) RNA GEO+probe Ql (Unsp spec) Methodology: real-time, RT-PCR The SARS-CoV-2, Flu A/B, and RSV Combo assay is intended for in vitro diagnostic use under the FDA Emergency Use Authorization (EUA). This test has not been FDA cleared or approved. In compliance with this authorization, please visit www.fda.gov/media/997620 /download or www.fda.gov/media/959579 /download to access the applicable information sheets. [facility] MAGNESIUMon 11-01-2024 Magnesium [Mass/Vol] 1.7 mg/dL Normal 1.6-2.6 [facility] Comment on above: Result Comment: ANUPAM R COMMENTS:Higher values can be expected in females during menses. Performed By: #### L [id number], [id number], LAB20, LAB15, [id number] ####Fire Operations Forester: MELI CARRILLO ([id number])[facility] ([facility])[address] [place] [address] MEDICATION ASSISTED TREATMEN T PANELon 11-01-2024 Amphetamines Ql (U) Negative Normal Negative [facility] Comment on above: Performed By: #### L [id number] ####Fire Operations Forester: ALEIDA BAEZA ([id number])[facility] ([facility])[address] [place] [address] BARBITURATES Negative Normal Negative [facility] Comment on above: Performed By: #### L [id number] ####Fire Operations Forester: ALEIDA BAEZA ([id number])[facility] ([facility] [place] [address] Benzodiazepines Ql (U) Negative Normal Negative [facility] Comment on above: Performed By: #### L [id number] ####Fire Operations Forester: ALEIDA BAEZA ([id number])[facility] ([facility])[address] [place] [address] BUPRENORPHINE SCREEN Negative Normal Negative [facility] Comment on above: Performed By: #### L [id number] ####Fire Operations Forester: ALEIDA BAEZA ([id number])[facility] ([facility])[address] [place] [address] Cocaine Ql (U) Negative Normal Negative [facility] Comment on above: Performed By: #### L [id number] ####Fire Operations Forester: ALEIDA BAEZA ([id number])[facility])[address] [place] [address] ETHANOL-ETOHO Negative Normal Negative [facility] Comment on above: Result Comment: ANUPAM R COMMENTS:The expected value for the drugs listed above is Negative.The following drugs or drug groups have been screened for by Immunoassay at the following thresholds:Amphetamine class(1000ng/mL)Barbituates(200ng/mL)Benzodiazepines(200ng/mL) Cocaine(300ng/mL)Ethanol (50 ng/mL)Methadone(300ng/mL)Opiates(300ng/mL)Oxycodone(100ng/mL)P CP(25ng/mL)Buprenorphine(5ng/mL)THC(50ng/mL)Fentanyl(1ng/mL)Po sitive results are NOT confirmed by a more specific alternative method unless requested. If confirmation is needed, request confirmation under separate order.NOTE: These results are for medical treatment only. Analysis performed using non-forensic procedures. Performed By: #### L [id number] ####Fire Operations Forester: ALEIDA BAEZA ([id number])[address] FENTANYL Negative Normal Negative [facility] Comment on above: Performed By: #### L [id number] ####Fire Operations Forester: ALEIDA [id number])[address] Methadone Ql (U) Negative Normal Negative [facility] Comment on above: Performed By: #### L [id number] ####Fire Operations Forester: ALEIDA BAEZA ([id number])[facility])[address] [place] [address] Opiates Ql (U) Negative Normal Negative [facility] Comment on above: Performed By: #### L [id number] ####Fire Operations Forester: ALEIDA BAEZA ([id number])[facility])[address] [place] [address] OXYCODONE/OXYMORPHONE Negative Normal Negative [facility] Comment on above: Performed By: #### L [id number] ####Fire Operations Forester: ALEIDA BAEZA ([id number])[facility])[address] [place] [address] PCP Negative Normal Negative [facility] Comment on above: Performed By: #### L [id number] ####Fire Operations Forester: ALEIDA [id number])[facility] ([facility])[address] [place] [address] [place] THC-MTTHC Negative Normal Negative [facility] Comment on above: Performed By: #### L [id number] ####Fire Operations Forester: ALEIDA BAEZA ([id number])[facility] ([facility])[address] [place] [address] [place] Magnesium [Mass/Vol]on 11-01 Interpretation and review of laboratory results Normal [facility] Higher values can be expected in females during menses. [facility] NT PRO BNPon 11-01-2024 Natriuretic peptide B (Bld) [Mass/Vol] 4147 pg/mL High <125 [facility] Comment on above: Performed By: #### L [id number], [id number], LAB20, LAB15, [id number] ####Fire Operations Forester: MELI CARRILLO ([id number])[facility] ([facility])[address] [place] [address] Natriuretic peptide B [Mass/ Vol]on 11-01-2024 Interpretation and review of laboratory results Abnormal [facility] Project Natriuretic peptide B (Bld) [Mass/Vol] 4147 pg/mL High NINF - 125 pg/mL [facility] No Panel Informationon 11-01 4h Troponin HS (Serial 3rd Troponin) 24 ng/L NINF - 35 ng/L [facility] Comment on above: Rising or falling tr oponin delta between 2 15 ng/L as compared to 2h troponin value requires further evaluation. Interpretation and review of laboratory results Normal [facility] 2h Troponin HS (Serial 2nd Troponin) 20 ng/L NINF - 35 ng/L [facility] Comment on above: Rising or falling tr oponin delta between 2 15 ng/L as compared to baseline value requires a 3rd serial troponin Interpretation and review of laboratory results Normal [facility] Interpretation and review of laboratory results Normal [facility] Interpretation and review of laboratory results Normal [facility] Troponin HS Serial Baseline 16 ng/L NINF - 35 ng/L [facility] Comment on above: In individuals prese nting with symptoms > 2h, a baseline troponin <= 5 ng/L suggests acute cardiac injury is unlikely and further serial testing is generally not indicated. [facility] Interpretation and review of laboratory results Abnormal [facility] No Panel InformationOrdered By: Chilo Mayo on 11-01-2024 Amount Of Oxygen [facility] Interpretation and review of laboratory results Abnormal [facility] Source Of Oxygen Nasal Cannula (LPM) [facility] Assessment of oxygenation is best done with an arterial blood gas determination. Reference ranges for pO2, bicarbonate, and base excess are for mixed venous blood. Specimens drawn from a peripheral vein will often have higher values. [facility] SARS-COV-2, FLU A/B, AND RSV COMBOon 11-01-2024 SARS-CoV-2 (COVID-19) RNA GEO+probe Ql (Unsp spec) Normal [facility] Comment on above: Performed By: #### L [id number] ####Fire Operations Forester: MELI CARRILLO ([id number])[place] [facility] [place] [address] SARS-CoV-2, Flu A/B, and RSV Comboon 11-01-2024 Interpretation and review of laboratory results Normal [facility] Urinalysis complete panel (U )Ordered By: Mario Alberto Wilder on 11-01-2024 Bacteria LM.HPF (Urine sed) [#/Area] Negative Negative /HPF [facility] Bilirubin Ql (U) Negative Negative mg/dL [facility] Clarity (U) Clear Clear [facility] Color (U) Light Yellow Lt. Yellow [facility] Epithelial cells.squamous LM.HPF (Urine sed) [#/Area] Negative [facility] Glucose Ql (U) 1,000 Abnormal Normal (<70) mg/dL [facility] Hemoglobin Ql (U) Negative Negative mg/dL [facility] Hyaline casts Auto (Urine sed) [#/Area] 3-5 Abnormal Negative /LPF [facility] Interpretation and review of laboratory results Abnormal [facility] Ketones (U) [Mass/Vol] Negative Negat heather mg/dL [facility] Leukocyte esterase Test strip Ql (U) Negative Negative Jacqui/uL [facility] Nitrite Ql (U) Negative Negative [facility] pH (U) 6.5 [pH] 5.0 - 8.0 pH [facility] Protein (U) [Mass/Vol] 10 mg/dL Abnormal Negative [facility] RBC LM.HPF (Urine sed) [#/Area] 0-2 [facility] Specific gravity (U) [Rel density] 1.009 1.005 - 1.030 [facility] Spermat[place] LM.HPF (Urine sed) [#/Area] Few Abnormal Negative /HPF [facility] Urobilinogen (U) [Mass/Vol] Normal Normal (0-1) mg/dL [facility] WBC LM.HPF (Urine sed) [#/Area] 0-2 [facility] Vital signsOrdered By: Gabriel Mayo on 11-01-2024 Oxygen saturation in Venous blood 53.1 % [facility] XR Chest Single viewon 11-01 Vascular congestion without overt edema. No focal consolidation. Report Dictated on Electronically Signed By: Alek Erazo MD Electronically Signed Date/Time: 11/01/2024 3:04 PM EST [facility] Patient Name: KRYSTINA LYNCH : 1955 Exam Date/Time: 11/01/2024 14:50 Procedure: XR CHEST 1 VIEW Ordering Provider: WONG MICHAEL Reason For Exam: CHEST PAIN PORTABLE CHEST CLINICAL INDICATION: CHEST PAIN TECHNIQUE: Portable AP COMPARISON: 09/10/2024 FINDINGS: Pulmonary vascular congestion without overt edema. No focal consolidation. No pleural effusions or pneumothorax. The heart is mildly enlarged in size. There is calcification and tortuosity of the thoracic aorta. Left-sided dual-lead pacemaker device noted. Multiple chronic appearing deformities of the right-sided posterior ribs, likely related to remote trauma. [facility] Alek Erazo MD - 11/01/2024 Patient Name: KRYSTINA MARKHAM : 1955 Exam Date/Time: 11/01/2024 14:50 Procedure: XR CHEST 1 VIEW Ordering Provider: WONG MICHAEL Reason For Exam: CHEST PAIN PORTABLE CHEST CLINICAL INDICATION: CHEST PAIN TECHNIQUE: Portable AP COMPARISON: 09/10/2024 FINDINGS: Pulmonary vascular congestion without overt edema. No focal consolidation. No pleural effusions or pneumothorax. The heart is mildly enlarged in size. There is calcification and tortuosity of the thoracic aorta. Left-sided dual-lead pacemaker device noted. Multiple chronic appearing deformities of the right-sided posterior ribs, likely related to remote trauma. IMPRESSION: Vascular congestion without overt edema. No focal consolidation. Report Dictated on Electronically Signed By: Alek Erazo MD Electronically Signed Date/Time: 11/01/2024 3:04 PM EST [facility] Radiology Study observation (narrative) [facility] Progress Noteon 10-26-2024 Progress Note Normal [facility] Progress Noteon 10-23-2024 Progress Note Normal [facility] Progress Noteon 10-14-2024 Progress Note States he has only h ad a few cigarettes in the last 2 months. He was congratulated on this and encouraged to maintain cessation. Normal [facility] Progress Note Normal [facility] Progress Note No abnormal bleeding on Eliquis. CBC and BMP September 2024 stable. -Continue Eliquis 5 mg p.o. twice daily -CBC and BMP every 6 months, due March 2025 Normal [facility] Progress Note Nonvalvular. Remains in rate controlled A-fib today. -Continue Toprol 100 mg p.o. twice daily -Continue Eliquis 5 mg p.o. twice daily Normal [facility] Progress Note Normal [facility] Progress Note Normal [facility] 36on 10-02-2024 36 Normal [facility] Progress Noteon 09-28-2024 Progress Note Normal [facility] 36on 09-25-2024 36 Patient had a KISHAN appointment scheduled for 09/21/2024 and cancelled. Normal [facility] 36on 09-24-2024 36 Normal [facility] 36 Normal [facility] Progress Noteon 09-22-2024 Progress Note Normal [facility] 36on 09-21-2024 36 Patient had an appointment for today but cancelled the appointment Normal [facility] [id number] 09-18-2024 [id number] Patient Choice Patient Name: KRYSTINA MARKHAM Date of : 1955 Normal [facility] 36on 09-17-2024 36 Message left for alejo linn to call the [facility]. Normal [facility] 30on 09-16-2024 30 Normal [facility] [id number] 09-16-2024 [id number] [facility] notified of discharge home today. [facility] 36on 09-16-2024 36 Patient is supposed to be discharge today. I have scheduled him an appointment for 09/21/24. KISHAN questions will need to be done after discharge [facility] CBC W Auto Differential pane l (Bld)on 09-16-2024 Basophils (Bld) [#/Vol] 0 10*3/uL 0.0 - 0.2 10*3/uL [facility] Basophils/100 WBC (Bld) 0.3 % 0.0 - 2.0 % [facility] Eosinophils (Bld) [#/Vol] 0 10*3/uL 0.0 - 0.5 10*3/uL [facility] Eosinophils/100 WBC (Bld) 0.6 % 0.0 - 6.0 % [facility] Erythrocyte distribution width (RBC) [Ratio] 14.9 % 11.5 - 15.0 % [facility] Hematocrit (Bld) [Volume fraction] 36.2 % Low 40.0 - 52.0 % [facility] Hemoglobin (Bld) [Mass/Vol] 12.1 g/dL Low 13.0 - 18.0 g/dL [facility] Immature granulocytes (Bld) [#/Vol] 0 10*3/uL NINF - 0.1 10*3/uL [facility] Immature granulocytes/100 WBC (Bld) 0.6 % 0.0 - 2.0 % [facility] Interpretation and review of laboratory results Abnormal [facility] Lymphocytes (Bld) [#/Vol] 0.7 10*3/uL Low 1.0 - 4.3 10*3/uL [facility] Lymphocytes/100 WBC (Bld) 10.8 % Low 15.0 - 45.0 % [facility] MCH (RBC) [Entitic mass] 31 pg 26.0 - 34.0 pg [facility] MCHC (RBC) [Mass/Vol] 33.4 % 30.5 - 36.0 % [facility] MCV (RBC) [Entitic vol] 92.8 fL 77.0 - 99.0 fL [facility] Monocytes (Bld) [#/Vol] 0.7 10*3/uL 0.0 - 0.9 10*3/uL [facility] Monocytes/100 WBC (Bld) 10.7 % 5.0 - 13.0 % [facility] Neutrophils (Bld) [#/Vol] 4.8 10*3/uL 1.8 - 7.5 10*3/uL [facility] Neutrophils/100 WBC (Bld) 77 % 38.0 - 82.0 % [facility] Nucleated RBC/100 WBC (Bld) [Ratio] 0 % [facility] Platelet mean volume (Bld) [Entitic vol] 10.6 fL 9.0 - 12.7 fL [facility] Platelets (Bld) [#/Vol] 220 10*3/uL 140 - 440 10*3/uL [facility] RBC (Bld) [#/Vol] 3.9 10*6/uL Low 4.40 - 5.9 0 10*6/uL [facility] WBC (Bld) [#/Vol] 6.2 10*3/uL 3.6 - 10.7 10*3/uL [facility] CBC WITH AUTO DIFFERENTIALon 09-16-2024 Basophils (Bld) [#/Vol] 0.0 10*3/uL Normal 0.0-0.2 [facility] Comment on above: Performed By: #### L [id number] ####Fire Operations Forester: MELI CARRILLO ([id number])[facility] [place] ([facility])[address] Basophils/100 WBC (Bld) 0.3 % Normal 0.0-2.0 [facility] Comment on above: Performed By: #### L [id number] ####Fire Operations Forester: MELI CARRILLO ([id number])[facility] [place] ([facility])[address] Eosinophils (Bld) [#/Vol] 0.0 10*3/uL Normal 0.0-0.5 [facility] Comment on above: Performed By: #### L [id number] ####Fire Operations Forester: MELI PEREZMASSIEL ([id number])[facility] ([facility])[address] [place] [address] Eosinophils/100 WBC (Bld) 0.6 % Normal 0.0-6.0 [facility] Comment on above: Performed By: #### L [id number] ####Fire Operations Forester: MELI PEREZMASSIEL ([id number])[facility] ([facility])[address] [place] [address] Erythrocyte distribution width (RBC) [Ratio] 14.9 % Normal 11.5-15.0 [facility] Comment on above: Performed By: #### L [id number] ####Fire Operations Forester: MELI LEECALDERON ([id number])[facility] ([facility])[address] [place] [address] Hematocrit (Bld) [Volume fraction] 36.2 % Low 40.0-52.0 [facility] Comment on above: Performed By: #### L [id number] ####Fire Operations Forester: MELI PEREZMASSIEL ([id number])[facility] ([facility])[address] [place] [address] Hemoglobin (Bld) [Mass/Vol] 12.1 g/dL Low 13.0-18.0 [facility] Comment on above: Performed By: #### L [id number] ####Fire Operations Forester: MELI PEREZMASSIEL ([id number])[facility] ([facility])[address] [place] [address] IMMATURE GRANS % 0.6 % Normal 0.0-2.0 [facility] Comment on above: Performed By: #### L [id number] ####Fire Operations Forester: MELI CARRILLO ([phone])[facility] ([facility])[address] [place] [address] IMMATURE GRANS ABSOLUTE 0.0 10*3/uL Normal <0.1 [facility] Comment on above: Performed By: #### L [id number] ####Fire Operations Forester: MELI CARRILLO ([id number])[facility] ([facility])[address] Lymphocytes (Bld) [#/Vol] 0.7 10*3/uL Low 1.0-4.3 [facility] Comment on above: Performed By: #### L [id number] ####Fire Operations Forester: MELI CARRILLO ([phone])[facility] ([facility])[address] Lymphocytes/100 WBC (Bld) 10.8 % Low 15.0-45.0 [facility] Comment on above: Performed By: #### L [id number] ####Fire Operations Forester: MELI CARRILLO ([id number])[facility] ([facility])[address] MCH (RBC) [Entitic mass] 31.0 pg Normal 26.0-34.0 [facility] Comment on above: Performed By: #### L [id number] ####Fire Operations Forester: MELI CARRILLO ([id number])[facility] ([facility])[address] [place] [address] MCHC 33.4 % Normal 30.5-36.0 [facility] Comment on above: Performed By: #### L [id number] ####Fire Operations Forester: MELI CARRILLO ([id number])[facility] ([facility])[address] [place] [address] MCV (RBC) [Entitic vol] 92.8 fL Normal 77.0-99.0 [facility] Comment on above: Performed By: #### L [id number] ####Fire Operations Forester: MELI CARRILLO ([phone])[facility] ([facility])[address] [place] [address] Monocytes (Bld) [#/Vol] 0.7 10*3/uL Normal 0.0-0.9 [facility] Comment on above: Performed By: #### L [id number] ####Fire Operations Forester: MELI CARRILLO ([id number])[facility] [place] (SBHL[facility])[address] Monocytes/100 WBC (Bld) 10.7 % Normal 5.0-13.0 [facility] Comment on above: Performed By: #### L [id number] ####Fire Operations Forester: MELI CARRILLO ([id number])[facility] [place] ([facility])[address] NEUTROPHILS ABSOLUTE 4.8 10*3/uL Normal 1.8-7.5 [facility] Comment on above: Performed By: #### L [id number] ####Fire Operations Forester: MELI CARRILLO ([id number])[facility] [place] ([facility])[address] Neutrophils/100 WBC (Bld) 77.0 % Normal 38.0-82.0 [facility] Comment on above: Performed By: #### L [id number] ####Fire Operations Forester: MELI CARRILLO ([id number])[facility] [place] ([facility])[address] NRBC 0.0 /100 WBCs Normal 0.0-2.0 [facility] Comment on above: Performed By: #### L [id number] ####Fire Operations Forester: MELI CARRILLO ([id number])[facility] [place] ([facility])[address] Platelet mean volume (Bld) [Entitic vol] 10.6 fL Normal 9.0-12.7 [facility] Comment on above: Performed By: #### L [id number] ####Fire Operations Forester: MELI CARRILLO ([id number])[facility] [place] ([facility])[address] [place] [address] [place] Platelets (Bld) [#/Vol] 220 10*3/uL Normal 140-440 [facility] Comment on above: Performed By: #### L [id number] ####Fire Operations Forester: MELI CARRILLO ([id number])[facility] [place] ([facility])[address] RBC (Bld) [#/Vol] 3.90 10*6/uL Low 4.40-5.90 [facility] Comment on above: Performed By: #### L [id number] ####Fire Operations Forester: MELI CARRILLO ([id number])[facility] [place] ([facility])[address] WBC (Bld) [#/Vol] 6.2 10*3/uL Normal 3.6-10.7 [facility] Comment on above: Performed By: #### L [id number] ####Fire Operations Forester: MELI CARRILLO ([id number])[facility] ([facility])[address] COMPREHENSIVE METABOLIC PANE Maciel 09-16-2024 Albumin [Mass/Vol] 2.7 g/dL Low 3.4-4.8 [facility] Comment on above: Performed By: #### L [id number], LAB17 ####Fire Operations Forester: MELI CARRILLO ([id number])[facility] ([facility])[address] ALP [Catalytic activity/Vol] 181 U/L High 40-150 [facility] Comment on above: Performed By: #### L [id number], LAB17 ####Fire Operations Forester: MELI CARRILLO ([phone])[facility] [place] ([facility])[address] ALT [Catalytic activity/Vol] 33 U/L Normal <40 [facility] Comment on above: Performed By: #### L [id number], LAB17 ####Fire Operations Forester: MELI CARRILLO ([id number])[facility] ([facility])[address] Anion gap [Moles/Vol] 9 mmol/L Normal 3-13 [facility] Comment on above: Performed By: #### L [id number], LAB17 ####Fire Operations Forester: MELI CARRILLO ([id number])[facility] [place] ([facility])[address] AST [Catalytic activity/Vol] 63 U/L High <34 [facility] Comment on above: Result Comment: TCSi gnificant interference from hemolysis. Result integrity compromised. Interpret with caution. Performed By: #### L [id number], LAB17 ####Fire Operations Forester: MELI CARRILLO ([id number])[facility] [place] ([facility])[address] Bilirubin [Mass/Vol] 0.5 mg/dL Normal <1.2 [facility] Comment on above: Performed By: #### L [id number], LAB17 ####Fire Operations Forester: MELI CARRILLO ([id number])[facility] [place] ([facility])[address] Calcium [Mass/Vol] 8.4 mg/dL Low 8.8-10.0 [facility] Comment on above: Performed By: #### L [id number], LAB17 ####Fire Operations Forester: MELI CARRILLO ([id number])[facility] [place] ([facility])[address] Chloride [Moles/Vol] 100 mmol/L Normal 98-107 [facility] Comment on above: Performed By: #### L [id number], LAB17 ####Fire Operations Forester: MELI CARRILLO ([phone])[facility] [place] ([facility])[address] [place] [address] [place] CO2 [Moles/Vol] 26 mmol/L Normal 23-31 [facility] Comment on above: Performed By: #### L [id number], LAB17 ####Fire Operations Forester: MELI CARRILLO ([id number])[facility] [place] ([facility])[address] Creatinine [Mass/Vol] 0.89 mg/dL Normal 0.72-1.25 [facility] Comment on above: Performed By: #### L [id number], LAB17 ####Fire Operations Forester: MELI CARRILLO ([id number])[facility] ([facility])[address] GLOMERULAR FILTRATION RATE ML/MIN/1.73 SQ M.PREDICTED >90.0 Normal >60.0 [facility] Comment on above: Result Comment: Calc ulation based on the Chronic Kidney Disease Epidemiology Collaboration (CKD-EPI) equation refit without adjustment for race Performed By: #### L [id number], LAB17 ####Fire Operations Forester: MELI CARRILLO ([id number])[facility] ([facility])[address] Glucose [Mass/Vol] 144 mg/dL High 82-115 [facility] Comment on above: Performed By: #### L [id number], LAB17 ####Fire Operations Forester: MELI CARRILLO ([phone])[facility] ([facility])[address] [place] [address] Potassium [Moles/Vol] 4.2 mmol/L Normal 3.5-5.1 [facility] Comment on above: Result Comment: TCSi gnificant interference from hemolysis. Result integrity compromised. Interpret with caution. Performed By: #### L [id number], LAB17 ####Fire Operations Forester: MELI CARRILLO ([id number])[facility] ([facility])[address] [place] [address] Protein [Mass/Vol] 6.8 g/dL Normal 6.4-8.3 [facility] Comment on above: Result Comment: TCPo tential interference from hemolysis Performed By: #### L [id number], LAB17 ####Fire Operations Forester: MELI CARRILLO ([id number])[facility] ([facility])[address] [place] [address] Sodium [Moles/Vol] 135 mmol/L Low 136-145 [facility] Comment on above: Performed By: #### L [id number], LAB17 ####Fire Operations Forester: MELI CARRILLO ([id number])[facility] ([facility])[address] Urea nitrogen [Mass/Vol] 24 mg/dL High 9-23 [facility] Comment on above: Performed By: #### L [id number], LAB17 ####Fire Operations Forester: MELI CARRILLO ([id number])[facility] ([facility])[address] Comprehensive metabolic 1998 panelon 09-16-2024 Albumin [Mass/Vol] 2.7 g/dL Low 3.4 - 4.8 g/dL [facility] ALP [Catalytic activity/Vol] 181 U/L High 40 - 150 U/L [facility] ALT [Catalytic activity/Vol] [facility] Anion gap [Moles/Vol] 9 mmol/L 3 - 13 mmol/L [facility] AST [Catalytic activity/Vol] 63 U/L [facility] U/L [facility] Comment on above: TC Significant interference from hemolysis. Result integrity compromised. Interpret with caution. Bilirubin [Mass/Vol] 0.5 mg/dL NINF - 1.2 mg/dL [facility] Calcium [Mass/Vol] 8.4 mg/dL Low 8.8 - 10. 0 mg/dL [facility] Chloride [Moles/Vol] 100 mmol/L 98 - 10 7 mmol/L [facility] CO2 [Moles/Vol] 26 mmol/L 23 - 31 mmol/L [facility] Creatinine [Mass/Vol] 0.89 mg/dL 0.72 - 1.25 mg/dL [facility] GFR/1.73 sq M.predicted (S/P/Bld) [Vol rate/Area] - PINF [facility] Comment on above: Calculation based on the Chronic Kidney Disease Epidemiology Collaboration (CKD-EPI) equation refit without adjustment for race Glucose [Mass/Vol] 144 mg/dL High 82 - 115 mg/dL [facility] Interpretation and review of laboratory results Abnormal [facility] Potassium [Moles/Vol] 4.2 mmol/L 3.5 - 5.1 mmol/L [facility] Comment on above: TC Significant interference from hemolysis. Result integrity compromised. Interpret with caution. Protein [Mass/Vol] 6.8 g/dL 6.4 - 8.3 g/dL [facility] Comment on above: TC Potential interference from hemolysis Sodium [Moles/Vol] 135 mmol/L Low 136 - 145 mmol/L [facility] Urea nitrogen [Mass/Vol] 24 mg/dL High 9 - 23 mg/dL [facility] NT PRO BNPon 09-16-2024 Natriuretic peptide B (Bld) [Mass/Vol] 4175 pg/mL High <125 [facility] Comment on above: Performed By: #### L [id number], LAB17 ####Fire Operations Forester: MELI CARRILLO ([id number])[facility] ([facility])[address] [place] [address] Natriuretic peptide B [Mass/ Vol]on 09-16-2024 Interpretation and review of laboratory results Abnormal [facility] Natriuretic peptide B (Bld) [Mass/Vol] 4175 pg/mL High NINF - 125 pg/mL [facility] Progress Noteon 09-16-2024 Progress Note Normal [facility] Progress Note Normal [facility] Progress Note Normal [facility] [id number] 09-15-2024 [id number] Normal [facility] [id number] Normal [facility] [id number] Normal [facility] CBC W Auto Differential pane l (Bld)on 09-15-2024 Basophils (Bld) [#/Vol] 0 10*3/uL 0.0 - 0.2 10*3/uL [facility] Basophils/100 WBC (Bld) 0.5 % 0.0 - 2.0 % [facility] Eosinophils (Bld) [#/Vol] 0.2 10*3/uL 0.0 - 0.5 10*3/uL [facility] Eosinophils/100 WBC (Bld) 2 % 0.0 - 6.0 % [facility] Erythrocyte distribution width (RBC) [Ratio] 14.9 % 11.5 - 15.0 % [facility] Hematocrit (Bld) [Volume fraction] 35.6 % Low 40.0 - 52.0 % [facility] Hemoglobin (Bld) [Mass/Vol] 11.9 g/dL Low 13.0 - 18.0 g/dL [facility] Immature granulocytes (Bld) [#/Vol] 0.1 10*3/uL High NINF - 0.1 10*3/uL [facility] Immature granulocytes/100 WBC (Bld) 0.7 % 0.0 - 2.0 % [facility] Interpretation and review of laboratory results Abnormal [facility] Lymphocytes (Bld) [#/Vol] 0.9 10*3/uL Low 1.0 - 4.3 10*3/uL [facility] [facility] Lymph[facility]/100 WBC (Bld) 12.1 % Low 15.0 - 45.0 % [facility] MCH (RBC) [Entitic mass] 30.9 pg 26.0 - 34.0 pg [facility] MCHC (RBC) [Mass/Vol] 33.4 % 30.5 - 36.0 % [facility] MCV (RBC) [Entitic vol] 92.5 fL 77.0 - 99.0 fL [facility] [employer] [facility] Monocytes (Bld) [#/Vol] 0.8 10*3/uL 0.0 - 0.9 10*3/uL [facility] Monocytes/100 WBC (Bld) 10.5 % 5.0 - 13.0 % [facility] Neutrophils (Bld) [#/Vol] 5.5 10*3/uL 1.8 - 7.5 10*3/uL [facility] Neutrophils/100 WBC (Bld) 74.2 % 38.0 - 82.0 % [facility] Nucleated RBC/100 WBC (Bld) [Ratio] 0 % [facility] [employer] [facility] Platelet mean volume (Bld) [Entitic vol] 10.8 fL 9.0 - 12.7 fL [facility] [employer] [facility] Platelets (Bld) [#/Vol] 177 10*3/uL 140 - 440 10*3/uL [facility] RBC (Bld) [#/Vol] 3.85 10*6/uL Low 4.40 - 5.9 0 10*6/uL [facility] WBC (Bld) [#/Vol] 7.4 10*3/uL 3.6 - 10.7 10*3/uL [facility] CBC WITH AUTO DIFFERENTIALon 09-15-2024 Basophils (Bld) [#/Vol] 0.0 10*3/uL Normal 0.0-0.2 [facility] Comment on above: Performed By: #### L [id number] ####Fire Operations Forester: MELI CARRILLO ([phone])[facility] (SBHLAB)[address] Basophils/100 WBC (Bld) 0.5 % Normal 0.0-2.0 [facility] Comment on above: Performed By: #### L [id number] ####Fire Operations Forester: MELI CARRILLO ([phone])[facility] (SBHLAB)[address] Eosinophils (Bld) [#/Vol] 0.2 10*3/uL Normal 0.0-0.5 [facility] Comment on above: Performed By: #### L [id number] ####Fire Operations Forester: MELI CARRILLO ([id number])[facility] (SBHLAB)[address] Eosinophils/100 WBC (Bld) 2.0 % Normal 0.0-6.0 [facility] Comment on above: Performed By: #### L [id number] ####Fire Operations Forester: MELI CARRILLO ([phone])[facility] (SBHLAB)[address] [place] [address] Erythrocyte distribution width (RBC) [Ratio] 14.9 % Normal 11.5-15.0 [facility] Comment on above: Performed By: #### L [id number] ####Fire Operations Forester: MELI CARRILLO ([id number])[facility] (SBHLAB)[address] [place] [address] Hematocrit (Bld) [Volume fraction] 35.6 % Low 40.0-52.0 [facility] Comment on above: Performed By: #### L [id number] ####Fire Operations Forester: MELI CARRILLO ([phone])[facility] (SBHLAB)[address] [place] [address] Hemoglobin (Bld) [Mass/Vol] 11.9 g/dL Low 13.0-18.0 [facility] Comment on above: Performed By: #### L [id number] ####Fire Operations Forester: MELI CARRILLO ([phone])[facility] (SB[facility])[address] IMMATURE GRANS % 0.7 % Normal 0.0-2.0 [facility] Comment on above: Performed By: #### L [id number] ####Fire Operations Forester: MELI CARRILLO ([phone])[facility] (SBAB)[address] IMMATURE GRANS ABSOLUTE 0.1 10*3/uL High <0.1 [facility] Comment on above: Performed By: #### L [id number] ####Fire Operations Forester: MELI CARRILLO ([phone])[facility] [place] [address] Lymphocytes (Bld) [#/Vol] 0.9 10*3/uL Low 1.0-4.3 [facility] Comment on above: Performed By: #### L [id number] ####Fire Operations Forester: MELI CARRILLO ([phone])[facility])[address] [place] [address] Lymphocytes/100 WBC (Bld) 12.1 % Low 15.0-45.0 [facility] Comment on above: Performed By: #### L [id number] ####Fire Operations Forester: MELI CARRILLO ([phone])[facility] (SB[facility])[address] [place] [address] MCH (RBC) [Entitic mass] 30.9 pg Normal 26.0-34.0 [facility] Comment on above: Performed By: #### L [id number] ####Fire Operations Forester: MELI CARRILLO ([phone])[facility])[address] [place] [address] MCHC 33.4 % Normal 30.5-36.0 [facility] Comment on above: Performed By: #### L [id number] ####Fire Operations Forester: MELI PEREZMASSIEL ([id number])[facility] (SBHLAB)[address] MCV (RBC) [Entitic vol] 92.5 fL Normal 77.0-99.0 [facility] Comment on above: Performed By: #### L [id number] ####Fire Operations Forester: MELI PEREZMASSIEL ([phone])[facility] (SBHLAB)[address] Monocytes (Bld) [#/Vol] 0.8 10*3/uL Normal 0.0-0.9 [facility] Comment on above: Performed By: #### L [id number] ####Fire Operations Forester: MELI LEECALDERON ([phone])[facility] [place] (SBHLAB)[address] Monocytes/100 WBC (Bld) 10.5 % Normal 5.0-13.0 [facility] Comment on above: Performed By: #### L [id number] ####Fire Operations Forester: MELI PERZEMASSIEL ([id number])[facility] (SBHLAB)[address] NEUTROPHILS ABSOLUTE 5.5 10*3/uL Normal 1.8-7.5 [facility] Comment on above: Performed By: #### L [id number] ####Fire Operations Forester: MELI PEREZMASSIEL ([id number])[facility] [place] (SBHLAB)[address] Neutrophils/100 WBC (Bld) 74.2 % Normal 38.0-82.0 [facility] Comment on above: Performed By: #### L [id number] ####Fire Operations Forester: MELI PEREZMASSIEL ([id number])[facility] (SBHLAB)[address] NRBC 0.0 /100 WBCs Normal 0.0-2.0 [facility] Comment on above: Performed By: #### L [id number] ####Fire Operations Forester: MELI CARRILLO ([phone])[facility] (SBHLAB)[address] Platelet mean volume (Bld) [Entitic vol] 10.8 fL Normal 9.0-12.7 [facility] Comment on above: Performed By: #### L [id number] ####Fire Operations Forester: MELI CARRILLO ([id number])[facility] (SBHLAB)[address] Platelets (Bld) [#/Vol] 177 10*3/uL Normal 140-440 [facility] Comment on above: Performed By: #### L [id number] ####Fire Operations Forester: MELI CARRILLO ([phone])[facility] (SBHLAB)[address] [place] [address] RBC (Bld) [#/Vol] 3.85 10*6/uL Low 4.40-5.90 [facility] Comment on above: Performed By: #### L [id number] ####Fire Operations Forester: MLEI CARRILLO ([id number])[facility] (SB[facility]AB)[address] WBC (Bld) [#/Vol] 7.4 10*3/uL Normal 3.6-10.7 [facility] Comment on above: Performed By: #### L [id number] ####Fire Operations Forester: MELI CARRILLO ([phone])[facility] (SB[facility])[address] COMPREHENSIVE METABOLIC PANE Maciel 09-15-2024 Albumin [Mass/Vol] 2.9 g/dL Low 3.4-4.8 [facility] Comment on above: Performed By: #### L [id number] ####Fire Operations Forester: MELI CARRILLO ([id number])[facility] ([facility])[address] ALP [Catalytic activity/Vol] 202 U/L High 40-150 [facility] Comment on above: Performed By: #### L [id number] ####Fire Operations Forester: MELI CARRILLO ([phone])[facility] [place] (SBHLAB)[address] ALT [Catalytic activity/Vol] 35 U/L Normal <40 [facility] Comment on above: Performed By: #### L [id number] ####Fire Operations Forester: MELI CARRILLO ([id number])[facility] [place] (SBHLAB)[address] Anion gap [Moles/Vol] 9 mmol/L Normal 3-13 [facility] Comment on above: Performed By: #### L [id number] ####Fire Operations Forester: MELI CARRILLO ([id number])[facility] [place] (SBHLAB)[address] AST [Catalytic activity/Vol] 57 U/L High <34 [facility] Comment on above: Performed By: #### L [id number] ####Fire Operations Forester: MELI CARRILLO ([id number])[facility] [place] (SBHLAB)[address] Bilirubin [Mass/Vol] 0.6 mg/dL Normal <1.2 [facility] Comment on above: Performed By: #### L [id number] ####Fire Operations Forester: MELI CARRILLO ([id number])[facility] [place] (SB[facility])[address] Calcium [Mass/Vol] 8.4 mg/dL Low 8.8-10.0 [facility] Comment on above: Performed By: #### L [id number] ####Fire Operations Forester: MELI CARRILLO ([phone])[facility] [place] (SBHLAB)[address] Chloride [Moles/Vol] 95 mmol/L Low 98-107 [facility] Comment on above: Performed By: #### L [id number] ####Fire Operations Forester: MELI CARRILLO ([id number])[facility] (SBHLAB)[address] CO2 [Moles/Vol] 27 mmol/L Normal 23-31 [facility] Comment on above: Performed By: #### L [id number] ####Fire Operations Forester: MELI CARRILLO ([id number])[facility] [place] (SB[facility]AB)[address] Creatinine [Mass/Vol] 0.79 mg/dL Normal 0.72-1.25 [facility] Comment on above: Performed By: #### L [id number] ####Fire Operations Forester: MELI CARRILLO ([id number])[facility] [place] (SBHLAB)[address] GLOMERULAR FILTRATION RATE ML/MIN/1.73 SQ M.PREDICTED >90.0 Normal >60.0 [facility] Comment on above: Result Comment: Calc ulation based on the Chronic Kidney Disease Epidemiology Collaboration (CKD-EPI) equation refit without adjustment for race Performed By: #### L [id number] ####Fire Operations Forester: MELI CARRILLO ([phone])[facility] [place] (SB[facility])[address] Glucose [Mass/Vol] 120 mg/dL High 82-115 [facility] Comment on above: Performed By: #### L [id number] ####Fire Operations Forester: MELI CARRILLO ([phone])[facility] [place] (SBHLAB)[address] [place] [address] [place] Potassium [Moles/Vol] 4.0 mmol/L Normal 3.5-5.1 [facility] Comment on above: Result Comment: [facility] potassium values may be up to 0.5 mmol/L lower than serum values. Performed By: #### L [id number] ####Fire Operations Forester: MELI CARRLILO ([id number])[facility] [place] (SBHLAB)[address] Protein [Mass/Vol] 6.7 g/dL Normal 6.4-8.3 [facility] Comment on above: Performed By: #### L [id number] ####Fire Operations Forester: MELI CARRILLO ([id number])[facility] (SBHLAB)[address] Sodium [Moles/Vol] 131 mmol/L Low 136-145 [facility] Comment on above: Performed By: #### L [id number] ####Fire Operations Forester: MELI GERARDO ([id number])[facility] (SBHLAB)[address] Urea nitrogen [Mass/Vol] 18 mg/dL Normal 9-23 [facility] Comment on above: Performed By: #### L [id number] ####Fire Operations Forester: MELI CARRILLO ([phone])[facility] (SBHLAB)[address] [place] [address] Comprehensive metabolic 1998 panelon 09-15-2024 Albumin [Mass/Vol] 2.9 g/dL Low 3.4 - 4.8 g/dL [facility] ALP [Catalytic activity/Vol] 202 U/L High 40 - 150 U/L [facility] ALT [Catalytic activity/Vol] [facility] Anion gap [Moles/Vol] 9 mmol/L 3 - 13 mmol/L [facility] AST [Catalytic activity/Vol] 57 U/L [facility] U/L [facility] Bilirubin [Mass/Vol] 0.6 mg/dL NINF - 1.2 mg/dL [facility] Calcium [Mass/Vol] 8.4 mg/dL Low 8.8 - 10. 0 mg/dL [facility] Chloride [Moles/Vol] 95 mmol/L Low 98 - 10 7 mmol/L [facility] CO2 [Moles/Vol] 27 mmol/L 23 - 31 mmol/L [facility] Creatinine [Mass/Vol] 0.79 mg/dL 0.72 - 1.25 mg/dL [facility] GFR/1.73 sq M.predicted (S/P/Bld) [Vol rate/Area] - PINF [facility] Comment on above: Calculation based on the Chronic Kidney Disease Epidemiology Collaboration (CKD-EPI) equation refit without adjustment for race Glucose [Mass/Vol] 120 mg/dL High 82 - 115 mg/dL [facility] Interpretation and review of laboratory results Abnormal [facility] Potassium [Moles/Vol] 4 mmol/L 3.5 - 5.1 mmol/L [facility] Comment on above: Plasma potassium natalie ues may be up to 0.5 mmol/L lower than serum values. Protein [Mass/Vol] 6.7 g/dL 6.4 - 8.3 g/dL [facility] Sodium [Moles/Vol] 131 mmol/L Low 136 - 145 mmol/L [facility] Urea nitrogen [Mass/Vol] 18 mg/dL 9 - 23 mg/dL [facility] Progress Noteon 09-15-2024 Progress Note Normal [facility] Progress Note Normal [facility] Progress Note Normal [facility] Progress Note Normal [facility] 30on 09-14-2024 30 Normal [facility] [id number] 09-14-2024 [id number] Machine Precision Etcher following case for Discharge Needs. Normal [facility] [id number] 09-14-2024 [id number] Normal [facility] CBC W Auto Differential pane l (Bld)on 09-14-2024 Basophils (Bld) [#/Vol] 0 10*3/uL 0.0 - 0.2 10*3/uL [facility] Basophils/100 WBC (Bld) 0.3 % 0.0 - 2.0 % [facility] Eosinophils (Bld) [#/Vol] 0.1 10*3/uL 0.0 - 0.5 10*3/uL [facility] Eosinophils/100 WBC (Bld) 1 % 0.0 - 6.0 % [facility] Erythrocyte distribution width (RBC) [Ratio] 14.7 % 11.5 - 15.0 % [facility] Hematocrit (Bld) [Volume fraction] 33.6 % Low 40.0 - 52.0 % [facility] Hemoglobin (Bld) [Mass/Vol] 11.3 g/dL Low 13.0 - 18.0 g/dL [facility] Immature granulocytes (Bld) [#/Vol] 0 10*3/uL NINF - 0.1 10*3/uL [facility] Immature granulocytes/100 WBC (Bld) 0.3 % 0.0 - 2.0 % [facility] Interpretation and review of laboratory results Abnormal [facility] Lymphocytes (Bld) [#/Vol] 0.6 10*3/uL Low 1.0 - 4.3 10*3/uL [facility] Lymphocytes/100 WBC (Bld) 9.1 % Low 15.0 - 45.0 % [facility] MCH (RBC) [Entitic mass] 31 pg 26.0 - 34.0 pg [facility] MCHC (RBC) [Mass/Vol] 33.6 % 30.5 - 36.0 % [facility] MCV (RBC) [Entitic vol] 92.1 fL 77.0 - 99.0 fL [facility] Monocytes (Bld) [#/Vol] 0.8 10*3/uL 0.0 - 0.9 10*3/uL [facility] Monocytes/100 WBC (Bld) 11.7 % 5.0 - 13.0 % [facility] Neutrophils (Bld) [#/Vol] 5.4 10*3/uL 1.8 - 7.5 10*3/uL [facility] Neutrophils/100 WBC (Bld) 77.6 % 38.0 - 82.0 % [facility] Nucleated RBC/100 WBC (Bld) [Ratio] 0 % [facility] Platelet mean volume (Bld) [Entitic vol] 10.3 fL 9.0 - 12.7 fL [facility] Platelets (Bld) [#/Vol] 143 10*3/uL 140 - 440 10*3/uL [facility] RBC (Bld) [#/Vol] 3.65 10*6/uL Low 4.40 - 5.9 0 10*6/uL [facility] WBC (Bld) [#/Vol] 6.9 10*3/uL 3.6 - 10.7 10*3/uL [facility] CBC WITH AUTO DIFFERENTIALon 09-14-2024 Basophils (Bld) [#/Vol] 0.0 10*3/uL Normal 0.0-0.2 [facility] Comment on above: Performed By: #### L [id number] ####Fire Operations Forester: MELI CARRILLO ([id number])[facility] (SBHLAB)[address] Basophils/100 WBC (Bld) 0.3 % Normal 0.0-2.0 [facility] Comment on above: Performed By: #### L [id number] ####Fire Operations Forester: MELI CARRILLO ([id number])[facility] (SBHLAB)[address] Eosinophils (Bld) [#/Vol] 0.1 10*3/uL Normal 0.0-0.5 [facility] Comment on above: Performed By: #### L [id number] ####Fire Operations Forester: MELI CARRILLO ([id number])[facility] [place] (SB[facility])[address] Eosinophils/100 WBC (Bld) 1.0 % Normal 0.0-6.0 [facility] Comment on above: Performed By: #### L [id number] ####Fire Operations Forester: MELI CARRILLO ([id number])[facility] [place] (SBHLAB)[address] [place] [address] Erythrocyte distribution width (RBC) [Ratio] 14.7 % Normal 11.5-15.0 [facility] Comment on above: Performed By: #### L [id number] ####Fire Operations Forester: MELI CARRILLO ([phone])[facility] [place] (SB[facility])[address] [place] [address] Hematocrit (Bld) [Volume fraction] 33.6 % Low 40.0-52.0 [facility] Comment on above: Performed By: #### L [id number] ####Fire Operations Forester: MELI CARRILLO ([id number])[facility] [place] (SB[facility])[address] Hemoglobin (Bld) [Mass/Vol] 11.3 g/dL Low 13.0-18.0 [facility] Comment on above: Performed By: #### L [id number] ####Fire Operations Forester: MELI CARRILLO ([id number])[facility] (SBHLAB)[address] IMMATURE GRANS % 0.3 % Normal 0.0-2.0 [facility] Comment on above: Performed By: #### L [id number] ####Fire Operations Forester: MELI CARRILLO ([id number])[facility] (SBHLAB)[address] IMMATURE GRANS ABSOLUTE 0.0 10*3/uL Normal <0.1 [facility] Comment on above: Performed By: #### L [id number] ####Fire Operations Forester: MELI CARRILLO ([phone])[facility] (SBHLAB)[address] Lymphocytes (Bld) [#/Vol] 0.6 10*3/uL Low 1.0-4.3 [facility] Comment on above: Performed By: #### L [id number] ####Fire Operations Forester: MELI CARRILLO ([id number])[facility] (SBHLAB)[address] Lymphocytes/100 WBC (Bld) 9.1 % Low 15.0-45.0 [facility] Comment on above: Performed By: #### L [id number] ####Fire Operations Forester: MELI CARRILLO ([id number])[facility] (SBHLAB)[address] MCH (RBC) [Entitic mass] 31.0 pg Normal 26.0-34.0 [facility] Comment on above: Performed By: #### L [id number] ####Fire Operations Forester: MELI CARRILLO ([id number])[facility] (SBHLAB)[address] MCHC 33.6 % Normal 30.5-36.0 [facility] Comment on above: Performed By: #### L [id number] ####Fire Operations Forester: MELI CARRILLO ([id number])[facility] (SBHLAB)[address] MCV (RBC) [Entitic vol] 92.1 fL Normal 77.0-99.0 [facility] Comment on above: Performed By: #### L [id number] ####Fire Operations Forester: MELI CARRILLO ([phone])[facility] (SBHLAB)[address] Monocytes (Bld) [#/Vol] 0.8 10*3/uL Normal 0.0-0.9 [facility] Comment on above: Performed By: #### L [id number] ####Fire Operations Forester: MELI CARRILLO ([id number])[facility] (SBHLAB)[address] Monocytes/100 WBC (Bld) 11.7 % Normal 5.0-13.0 [facility] Comment on above: Performed By: #### L [id number] ####Fire Operations Forester: MELI CARRILLO ([id number])[facility] (SBHLAB)[address] NEUTROPHILS ABSOLUTE 5.4 10*3/uL Normal 1.8-7.5 [facility] Comment on above: Performed By: #### L [id number] ####Fire Operations Forester: MELI CARRILLO ([id number])[facility] (SBHLAB)[address] Neutrophils/100 WBC (Bld) 77.6 % Normal 38.0-82.0 [facility] Comment on above: Performed By: #### L [id number] ####Fire Operations Forester: MELI CARRILLO ([id number])[facility] (SBHLAB)[address] [place] [address] [place] NRBC 0.0 /100 WBCs Normal 0.0-2.0 [facility] Comment on above: Performed By: #### L [id number] ####Fire Operations Forester: MELI CARRILLO ([id number])[facility] (SBHLAB)[address] Platelet mean volume (Bld) [Entitic vol] 10.3 fL Normal 9.0-12.7 [facility] Comment on above: Performed By: #### L [id number] ####Fire Operations Forester: MELI CARRILLO ([phone])[facility] (SBHLAB)[address] Platelets (Bld) [#/Vol] 143 10*3/uL Normal 140-440 [facility] Comment on above: Performed By: #### L [id number] ####Fire Operations Forester: MELI CARRILLO ([phone])[facility] (SB[facility])[address] RBC (Bld) [#/Vol] 3.65 10*6/uL Low 4.40-5.90 [facility] Comment on above: Performed By: #### L [id number] ####Fire Operations Forester: MELI CARRILLO ([phone])[facility] (SB[facility]AB)[address] [place] [address] WBC (Bld) [#/Vol] 6.9 10*3/uL Normal 3.6-10.7 [facility] Comment on above: Performed By: #### L [id number] ####Fire Operations Forester: MELI CARRILLO ([id number])[facility] (SBHLAB)[address] COMPREHENSIVE METABOLIC PANE Maciel 09-14-2024 Albumin [Mass/Vol] 2.7 g/dL Low 3.4-4.8 [facility] Comment on above: Performed By: #### L [id number], LAB17 ####Fire Operations Forester: MELI CARRILLO ([id number])[facility] ([facility])[address] ALP [Catalytic activity/Vol] 160 U/L High 40-150 [facility] Comment on above: Performed By: #### L AB106, LAB17 ####Fire Operations Forester: MELI CARRILLO ([id number])[facility] ([facility])[address] ALT [Catalytic activity/Vol] 30 U/L Normal <40 [facility] Comment on above: Performed By: #### L AB106, LAB17 ####Fire Operations Forester: MELI CARRILLO ([id number])[facility] [place] ([facility])[address] Anion gap [Moles/Vol] 8 mmol/L Normal 3-13 [facility] Comment on above: Performed By: #### L AB106, LAB17 ####Fire Operations Forester: MELI TIDWELLCER ([phone])[facility] [place] ([facility])[address] AST [Catalytic activity/Vol] 47 U/L High <34 [facility] Comment on above: Performed By: #### L AB106, LAB17 ####Fire Operations Forester: MELI PEREZMASSIEL ([id number])[facility] [place] (SBHLAB)[address] Bilirubin [Mass/Vol] 0.6 mg/dL Normal <1.2 [facility] Comment on above: Performed By: #### L AB106, LAB17 ####Fire Operations Forester: MELI CARRILLO ([id number])[facility] [place] (SBHLAB)[address] Calcium [Mass/Vol] 8.5 mg/dL Low 8.8-10.0 [facility] Comment on above: Performed By: #### L AB106, LAB17 ####Fire Operations Forester: MELI PEREZMASSIEL ([id number])[facility] [place] (SBHLAB)[address] [place] [address] [place] Chloride [Moles/Vol] 96 mmol/L Low 98-107 [facility] Comment on above: Performed By: #### L AB106, LAB17 ####Fire Operations Forester: MELI CARRILLO ([id number])[facility] [place] (SB[facility])[address] CO2 [Moles/Vol] 30 mmol/L Normal 23-31 [facility] Comment on above: Performed By: #### L AB106, LAB17 ####Fire Operations Forester: MELI CARRILLO ([id number])[facility] [place] (SB[facility])[address] Creatinine [Mass/Vol] 0.70 mg/dL Low 0.72-1.25 [facility] Comment on above: Performed By: #### L AB106, LAB17 ####Fire Operations Forester: MELI CARRILLO ([id number])[facility] [place] (SB[facility])[address] GLOMERULAR FILTRATION RATE ML/MIN/1.73 SQ M.PREDICTED >90.0 Normal >60.0 [facility] Comment on above: Result Comment: Calc ulation based on the Chronic Kidney Disease Epidemiology Collaboration (CKD-EPI) equation refit without adjustment for race Performed By: #### L AB106, LAB17 ####Fire Operations Forester: MELI CARRILLO ([phone])[facility] [place] (SB[facility])[address] Glucose [Mass/Vol] 130 mg/dL High 82-115 [facility] Comment on above: Performed By: #### L AB106, LAB17 ####Fire Operations Forester: MELI CARRILLO ([phone])[facility] (SBHLAB)[address] Potassium [Moles/Vol] 3.6 mmol/L Normal 3.5-5.1 [facility] Comment on above: Result Comment: [facility] potassium values may be up to 0.5 mmol/L lower than serum values. Performed By: #### L [id number], [id number] ####Fire Operations Forester: MELI CARRILLO ([phone])[facility] [place] (SBHLAB)[address] Protein [Mass/Vol] 6.3 g/dL Low 6.4-8.3 [facility] Comment on above: Performed By: #### L [id number], [id number] ####Fire Operations Forester: MELI GERARDO ([phone])[facility] (SBHLAB)[address] Sodium [Moles/Vol] 134 mmol/L Low 136-145 [facility] Comment on above: Performed By: #### L [id number], [id number] ####Fire Operations Forester: MELI LEECALDERON ([phone])[facility] (SBHLAB)[address] Urea nitrogen [Mass/Vol] 18 mg/dL Normal 9-23 [facility] Comment on above: Performed By: #### L [id number], [id number] ####Fire Operations Forester: MELI LEECALDERON ([phone])[facility] (SBHLAB)[address] Comprehensive metabolic 1998 panelon 09-14-2024 Albumin [Mass/Vol] 2.7 g/dL Low 3.4 - 4.8 g/dL [facility] ALP [Catalytic activity/Vol] 160 U/L High 40 - 150 U/L [facility] ALT [Catalytic activity/Vol] 30 U[facility] Anion gap [Moles/Vol] 8 mmol/L 3 - 13 mmol/L [facility] AST [Catalytic activity/Vol] 47 U/L High [facility] - 34 U/L [facility] Bilirubin [Mass/Vol] 0.6 mg/dL [facility] mg/dL [facility] Calcium [Mass/Vol] 8.5 mg/dL Low 8.8 - 10. 0 mg/dL [facility] Chloride [Moles/Vol] 96 mmol/L Low 98 - 10 7 mmol/L [facility] CO2 [Moles/Vol] 30 mmol/L 23 - 31 mmol/L [facility] Creatinine [Mass/Vol] 0.7 mg/dL Low 0.72 - 1.25 mg/dL [facility] GFR/1.73 sq M.predicted (S/P/Bld) [Vol rate/Area] - PINF [facility] Comment on above: Calculation based on the Chronic Kidney Disease Epidemiology Collaboration (CKD-EPI) equation refit without adjustment for race Glucose [Mass/Vol] 130 mg/dL High 82 - 115 mg/dL [facility] Interpretation and review of laboratory results Abnormal [facility] Potassium [Moles/Vol] 3.6 mmol/L 3.5 - 5.1 mmol/L [facility] Comment on above: Plasma potassium natalie ues may be up to 0.5 mmol/L lower than serum values. Protein [Mass/Vol] 6.3 g/dL Low 6.4 - 8.3 g/dL [facility] Sodium [Moles/Vol] 134 mmol/L Low 136 - 145 mmol/L [facility] Urea nitrogen [Mass/Vol] 18 mg/dL 9 - 23 mg/dL [facility] NT PRO BNPon 09-14-2024 Natriuretic peptide B (Bld) [Mass/Vol] 8635 pg/mL High <125 [facility] Comment on above: Performed By: #### L [id number], [id number] ####Fire Operations Forester: MELI CARRILLO ([phone])[facility] ([facility])[address] [place] [address] Natriuretic peptide B [Mass/ Vol]on 09-14-2024 Interpretation and review of laboratory results Abnormal [facility] Natriuretic peptide B (Bld) [Mass/Vol] 8635 pg/mL High NINF - 125 pg/mL [facility] Nursing Noteon 09-14-2024 Nursing Note The medical team is requesting strict I/O on this patient. This nurse educated and instructed patient the importance of measuring urine iutput. Normal [facility] Progress Noteon 09-14-2024 Progress Note Normal [facility] Progress Note Normal [facility] Progress Note Normal [facility] Progress Note Normal [facility] Progress Note Normal [facility] US ABDOMEN LIMITEDon US ABDOMEN LIMITED Normal [facility] US Abdomen limitedon 025 No acute sonographic abnormality identified. No sonographic evidence of ascites. Report Dictated on Electronically Signed By: Carmine Caraballo MD Electronically Signed Date/Time: 09/14/2024 9:46 AM EST [facility] RAD[facility]Y [facility] Patient Name: KRYSTINA LYNCH : 1955 Exam Date/Time: 09/14/2024 07:15 Procedure: US ABDOMEN LIMITED Ordering Provider: WIGGINS PAUL Reason For Exam: ASCITES EXAMINATION: Ascites survey. EXAM DATE & TIME: 09/14/2024 7:15 AM EST INDICATION: ASCITES ADDITIONAL INFORMATION: 69-year-old male with a provided history of ascites presents for evaluation COMPARISON: Right upper quadrant ultrasound dated 08/20/2024 LIMITATIONS: None TECHNIQUE: Ultrasound real-time scan with image documentation of the right upper quadrant, right lower quadrant, left upper quadrant and left lower quadrant was performed to assess for ascites. FINDINGS: ASCITES Absent. OTHER FINDINGS None. [facility] Carmine Caraballo MD - 09/14/2024 Patient Name: KRYSTINA MARKHAM : 1955 Exam Date/Time: 09/14/2024 07:15 Procedure: US ABDOMEN LIMITED Ordering Provider: WIGGINS PAUL Reason For Exam: ASCITES EXAMINATION: Ascites survey. EXAM DATE & TIME: 09/14/2024 7:15 AM EST INDICATION: ASCITES ADDITIONAL INFORMATION: 69-year-old male with a provided history of ascites presents for evaluation COMPARISON: Right upper quadrant ultrasound dated 08/20/2024 LIMITATIONS: None TECHNIQUE: Ultrasound real-time scan with image documentation of the right upper quadrant, right lower quadrant, left upper quadrant and left lower quadrant was performed to assess for ascites. FINDINGS: ASCITES Absent. OTHER FINDINGS None. IMPRESSION: No acute sonographic abnormality identified. No sonographic evidence of ascites. Report Dictated on Electronically Signed By: Carmine Caraballo MD Electronically Signed Date/Time: 09/14/2024 9:46 AM EST [facility] [employer] Radiology Study observation (narrative) [employer] US Abdomen limitedOrdered By : Carmine Caraballo on 09-14-2024 [employer] Work Phone: 30on 09-13-2024 30 Normal [facility] 30 Normal [facility] CBC W Auto Differential pane l (Bld)on 09-13-2024 Erythrocyte distribution width (RBC) [Ratio] 14.8 % 11.5 - 15.0 % [facility] Hematocrit (Bld) [Volume fraction] 35 % Low 40.0 - 52.0 % [facility] Hemoglobin (Bld) [Mass/Vol] 12 g/dL Low 13.0 - 18.0 g/dL [facility] MCH (RBC) [Entitic mass] 31.7 pg 26.0 - 34.0 pg [facility] MCHC (RBC) [Mass/Vol] 34.3 % 30.5 - 36.0 % [facility] MCV (RBC) [Entitic vol] 92.3 fL 77.0 - 99.0 fL [facility] Platelet mean volume (Bld) [Entitic vol] 10.4 fL 9.0 - 12.7 fL [facility] Platelets (Bld) [#/Vol] 151 10*3/uL 140 - 440 10*3/uL [facility] RBC (Bld) [#/Vol] 3.79 10*6/uL Low 4.40 - 5.9 0 10*6/uL [facility] WBC (Bld) [#/Vol] 4.9 10*3/uL 3.6 - 10.7 10*3/uL [facility] CBC WITH AUTO DIFFERENTIALon 09-13-2024 Erythrocyte distribution width (RBC) [Ratio] 14.8 % Normal 11.5-15.0 [facility] Comment on above: Performed By: #### L [id number], [id number] ####Fire Operations Forester: MELI CARRILLO ([phone])[facility] (SBHLAB)[address] Hematocrit (Bld) [Volume fraction] 35.0 % Low 40.0-52.0 [facility] Comment on above: Performed By: #### L [id number], [id number] ####Fire Operations Forester: MELI CARIRLLO ([phone])[facility] (SBHLAB)[address] [place] [address] [place] Hemoglobin (Bld) [Mass/Vol] 12.0 g/dL Low 13.0-18.0 [facility] Comment on above: Performed By: #### L [id number], [id number] ####Fire Operations Forester: MELI CARRILLO ([phone])[facility]efania [facility] (SBHLAB)[address] MCH (RBC) [Entitic mass] 31.7 pg Normal 26.0-34.0 [facility] Comment on above: Performed By: #### L [id number], [id number] ####Fire Operations Forester: MELI CARRILLO ([phone])[facility] (SBAB)[address] MCHC 34.3 % Normal 30.5-36.0 [facility] Comment on above: Performed By: #### L [id number], [id number] ####Fire Operations Forester: MELI CARRILLO ([phone])[facility] (SBHLAB)[address] MCV (RBC) [Entitic vol] 92.3 fL Normal 77.0-99.0 [facility] Comment on above: Performed By: #### L [id number], [id number] ####Fire Operations Forester: MELI CARRILLO ([phone])[facility] (SBAB)[address] Platelet mean volume (Bld) [Entitic vol] 10.4 fL Normal 9.0-12.7 [facility] Comment on above: Performed By: #### L [id number], [id number] ####Fire Operations Forester: MELI CARRILLO ([phone])[facility] (SBHLAB)[address] Platelets (Bld) [#/Vol] 151 10*3/uL Normal 140-440 [facility] Comment on above: Performed By: #### L [id number], [id number] ####Fire Operations Forester: MELI CARRILLO ([phone])[facility] (SBHLAB)[address] RBC (Bld) [#/Vol] 3.79 10*6/uL Low 4.40-5.90 [facility] Comment on above: Performed By: #### L [id number], [id number] ####Fire Operations Forester: MELI CARRILLO ([phone])[facility] (SBHLAB)[address] WBC (Bld) [#/Vol] 4.9 10*3/uL Normal 3.6-10.7 [facility] Comment on above: Performed By: #### L [id number], [id number] ####Fire Operations Forester: MELI CARRILLO ([phone])[facility] (SBHLAB)[address] COMPREHENSIVE METABOLIC PANE Maciel 09-13-2024 Albumin [Mass/Vol] 2.8 g/dL Low 3.4-4.8 [facility] Comment on above: Performed By: #### L [id number] ####Fire Operations Forester: MELI CARRILLO ([phone])[facility] (SBHLAB)[address] ALP [Catalytic activity/Vol] 163 U/L High 40-150 [facility] Comment on above: Performed By: #### L [id number] ####Fire Operations Forester: MELI CARRILLO ([phone])[facility] (SBHLAB)[address] ALT [Catalytic activity/Vol] 29 U/L Normal <40 [facility] Comment on above: Performed By: #### L [id number] ####Fire Operations Forester: MELI CARRILLO ([phone])[facility] (SBHLAB)[address] Anion gap [Moles/Vol] 9 mmol/L Normal 3-13 [facility] Comment on above: Performed By: #### L [id number] ####Fire Operations Forester: MELI CARRILLO ([phone])[facility] [place] (SBHLAB)[address] AST [Catalytic activity/Vol] 48 U/L High <34 [facility] Comment on above: Performed By: #### L [id number] ####Fire Operations Forester: MELI CARRILLO ([id number])[facility] [place] (SBHLAB)[address] Bilirubin [Mass/Vol] 0.9 mg/dL Normal <1.2 [facility] Comment on above: Performed By: #### L [id number] ####Fire Operations Forester: MELI CARRILLO ([phone])[facility] [place] (SBHLAB)[address] Calcium [Mass/Vol] 8.8 mg/dL Normal 8.8-10.0 [facility] Comment on above: Performed By: #### L [id number] ####Fire Operations Forester: MELI CARRILLO ([phone])[facility] [place] (SBHLAB)[address] Chloride [Moles/Vol] 97 mmol/L Low 98-107 [facility] Comment on above: Performed By: #### L [id number] ####Fire Operations Forester: MELI CARRILLO ([phone])[facility] [place] (SBHLAB)[address] CO2 [Moles/Vol] 28 mmol/L Normal 23-31 [facility] Comment on above: Performed By: #### L [id number] ####Fire Operations Forester: MELI CARRILLO ([phone])[facility] [place] (SBHLAB)[address] [place] [address] [place] Creatinine [Mass/Vol] 0.77 mg/dL Normal 0.72-1.25 [facility] Comment on above: Performed By: #### L [id number] ####Fire Operations Forester: MELI CARRILLO ([phone])[facility] [place] (SBHLAB)[address] [place] [address] [place] GLOMERULAR FILTRATION RATE ML/MIN/1.73 SQ M.PREDICTED >90.0 Normal >60.0 [facility] Comment on above: Result Comment: Calc ulation based on the Chronic Kidney Disease Epidemiology Collaboration (CKD-EPI) equation refit without adjustment for race Performed By: #### L [id number] ####Fire Operations Forester: MELI CARRILLO ([phone])[facility] (SBHLAB)[address] Glucose [Mass/Vol] 124 mg/dL High 82-115 [facility] Comment on above: Performed By: #### L [id number] ####Fire Operations Forester: MELI CARRILLO ([phone])[facility] [place] (SBHLAB)[address] Potassium [Moles/Vol] 3.9 mmol/L Normal 3.5-5.1 [facility] Comment on above: Result Comment: [facility] potassium values may be up to 0.5 mmol/L lower than serum values. Performed By: #### L [id number] ####Fire Operations Forester: MELI CARRILLO ([phone])[facility] [place] (SBHLAB)[address] Protein [Mass/Vol] 6.7 g/dL Normal 6.4-8.3 [facility] Comment on above: Performed By: #### L [id number] ####Fire Operations Forester: MELI CARRILLO ([phone])[facility] [place] (SBHLAB)[address] [place] [address] [place] Sodium [Moles/Vol] 134 mmol/L Low 136-145 [facility] Comment on above: Performed By: #### L [id number] ####Fire Operations Forester: MELI CARRILLO ([phone])[facility] [place] (SBHLAB)[address] Urea nitrogen [Mass/Vol] 19 mg/dL Normal 9-23 [facility] Comment on above: Performed By: #### L [id number] ####Fire Operations Forester: MELI CARRILLO ([phone])[facility] (SBHLAB)[address] [place] [id number] [facility] Comprehensive metabolic 1998 panelon 09-13-2024 Albumin [Mass/Vol] 2.8 g/dL Low 3.4 - 4.8 g/dL [facility] ALP [Catalytic activity/Vol] 163 U/L High 40 - 150 U/L [facility] ALT [Catalytic activity/Vol] 29 U/L NINF - 40 U/L [facility] Anion gap [Moles/Vol] 9 mmol/L 3 - 13 mmol/L [facility] AST [Catalytic activity/Vol] 48 U/L High NINF - 34 U/L [facility] Bilirubin [Mass/Vol] 0.9 mg/dL NINF - 1.2 mg/dL [facility] Calcium [Mass/Vol] 8.8 mg/dL 8.8 - 10. 0 mg/dL [facility] Chloride [Moles/Vol] 97 mmol/L Low 98 - 10 7 mmol/L [facility] CO2 [Moles/Vol] 28 mmol/L 23 - 31 mmol/L [facility] Creatinine [Mass/Vol] 0.77 mg/dL 0.72 - 1.25 mg/dL [facility] GFR/1.73 sq M.predicted (S/P/Bld) [Vol rate/Area] - PINF [facility] Comment on above: Calculation based on the Chronic Kidney Disease Epidemiology Collaboration (CKD-EPI) equation refit without adjustment for race Glucose [Mass/Vol] 124 mg/dL High 82 - 115 mg/dL [facility] Interpretation and review of laboratory results Abnormal [facility] Potassium [Moles/Vol] 3.9 mmol/L 3.5 - 5.1 mmol/L [facility] Comment on above: Plasma potassium natalie ues may be up to 0.5 mmol/L lower than serum values. Protein [Mass/Vol] 6.7 g/dL 6.4 - 8.3 g/dL [facility] Sodium [Moles/Vol] 134 mmol/L Low 136 - 145 mmol/L [facility] Urea nitrogen [Mass/Vol] 19 mg/dL 9 - 23 mg/dL [facility] Laboratory - Hematology and Cell countson 09-13-2024 Lymphocytes (Bld) [#/Vol] 0.2 10*3/uL Low 1.0 - 4.3 10*3/uL [facility] Lymphocytes/100 WBC (Bld) 4 % Low 15 - 45 % [facility] Macrocytes Ql (Bld) Slight Abnormal (none) [facility] Monocytes (Bld) [#/Vol] 0.3 10*3/uL 0.0 - 0.9 10*3/uL [facility] Monocytes/100 WBC (Bld) 7 % 5 - 13 % [facility] Neutrophils (Bld) [#/Vol] 4.4 10*3/uL 1.8 - 7.5 10*3/uL [facility] RBC morphology finding Nom (Bld) abnormal [facility] Segmented neutrophils/100 WBC (Bld) 89 % High 38 - 82 % [facility] MANUAL DIFFERENTIAL (CELLAVI WESTON)on 09-13-2024 BAND NEUTROPHILS TOTAL PER COUNTED LEUKOCYTES BY MANUAL COUNT Normal [facility] Comment on above: Performed By: #### L [id number], [id number] ####Fire Operations Forester: MELI CARRILLO ([phone])[facility] (SBHLAB)[address] [place] [address] [place] BASOPHILS TOTAL PER COUNTED LEUKOCYTES BY MANUAL COUNT Normal [facility] Comment on above: Performed By: #### L [id number], [id number] ####Fire Operations Forester: MELI CARRILLO ([id number])[facility] (SBHLAB)[address] [place] [address] [place] BLASTS TOTAL PER COUNTED LEUKOCYTES BY MANUAL COUNT Normal [facility] Comment on above: Performed By: #### L [id number], [id number] ####Fire Operations Forester: MELI CARRILLO ([phone])[facility] [place] (SBHLAB)[address] [place] [address] [place] EOSINOPHILS TOTAL PER COUNTED LEUKOCYTES BY MANUAL COUNT Normal [facility] Comment on above: Performed By: #### L [id number], [id number] ####Fire Operations Forester: MELI CARRILLO ([phone])[facility] (SBHLAB)[address] [place] [address] [place] LYMPHOCYTES (10*3/UL) IN BLOOD-CELLAVISION 0.2 10*3/uL Low 1.0-4.3 [facility] Comment on above: Performed By: #### L [id number], [id number] ####Fire Operations Forester: MELI CARRILLO ([id number])[facility] [place] (SBHLAB)[address] LYMPHOCYTES TOTAL PER COUNTED LEUKOCYTES BY MANUAL COUNT 4 Normal [facility] Comment on above: Performed By: #### L [id number], [id number] ####Fire Operations Forester: MELI CARRILLO ([phone])[facility] [place] (SBHLAB)[address] [place] [address] [place] LYMPHOCYTES/100 LEUKOCYTES IN BLOOD-CELLAVISION 4 % Low 15-45 [facility] Comment on above: Performed By: #### L [id number], [id number] ####Fire Operations Forester: MELI CARRILLO ([id number])[facility] [place] (SBHLAB)[address] MACROCYTES (PRESENCE) IN BLOOD BY LIGHT MICROSCOPY Slight Abnormal (none) [facility] Comment on above: Performed By: #### L [id number], [id number] ####Fire Operations Forester: MELI CARRILLO ([phone])[facility] [place] (SBHLAB)[address] METAMYELOCYTES TOTAL PER COUNTED LEUKOCYTES BY MANUAL COUNT Normal [facility] Comment on above: Performed By: #### L [id number], [id number] ####Fire Operations Forester: MELI CARRILLO ([phone])[facility] [place] (SBHLAB)[address] [place] [address] [place] MONOCYTES (10*3/UL) IN BLOOD-CELLAVISION 0.3 10*3/uL Normal 0.0-0.9 [facility] Comment on above: Performed By: #### L [id number], [id number] ####Fire Operations Forester: MELI CARRILLO ([id number])[facility] [place] (SBHLAB)[address] [place] [address] [place] MONOCYTES TOTAL PER COUNTED LEUKOCYTES BY MANUAL COUNT 7 Normal [facility] Comment on above: Performed By: #### L [id number], [id number] ####Fire Operations Forester: MELI CARRILLO ([id number])[facility] [place] (SBHLAB)[address] MONOCYTES/100 LEUKOCYTES IN BLOOD-RIGOBERTO 7 % Normal 5-13 [facility] Comment on above: Performed By: #### L [id number], [id number] ####Fire Operations Forester: MELI CARRILLO ([phone])[facility] [place] (SBHLAB)[address] MYELOCYTES COUNTED BY MANUAL COUNT [facility] Comment on above: Performed By: #### L [id number], [id number] ####Fire Operations Forester: MELI CARRILLO ([phone])[facility] [place] (SBHLAB)[address] NEUTROPHILS TOTAL PER COUNTED LEUKOCYTES BY MANUAL COUNT 89 [facility] Comment on above: Performed By: #### L [id number], [id number] ####Fire Operations Forester: MELI CARRILLO ([id number])[facility] [place] (SBHLAB)[address] PROMYELOCYTES TOTAL PER COUNTED LEUKOCYTES BY MANUAL COUNT [facility] Comment on above: Performed By: #### L [id number], [id number] ####Fire Operations Forester: MELI CARRILLO ([phone])[facility] [place] (SBHLAB)[address] RBC MORPHOLOGY IN BLOOD abnormal Normal [facility] Comment on above: Performed By: #### L [id number], [id number] ####Fire Operations Forester: MELI CARRILLO ([phone])[facility] [place] (SBHLAB)[address] [place] [address] [place] SEGMENTED NEUTROPHILS (10*3/UL) IN BLOOD-CELLAVISION 4.4 10*3/uL Normal 1.8-7.5 [facility] Comment on above: Performed By: #### L [id number], [id number] ####Fire Operations Forester: MELI CARRILLO ([phone])[facility] (SBHLAB)[address] SEGMENTED NEUTROPHILS/100 LEUKOCYTES-CE 89 % High 38-82 [facility] Comment on above: Performed By: #### L [id number], [id number] ####Fire Operations Forester: MELI GERARDO ([phone])[facility] (SBHLAB)[address] UNCLASSIFIED CELLS TOTAL PER COUNTED LEUKOCYTES BY MANUAL COUNT Normal [facility] Comment on above: Performed By: #### L [id number], [id number] ####Fire Operations Forester: MELI LEECALDERON ([phone])[facility] (SBHLAB)[address] VARIANT LYMPHOCYTES TOTAL PER COUNTED LEUKOCYTES BY MANUAL COUNT Normal [facility] Comment on above: Performed By: #### L [id number], [id number] ####Fire Operations Forester: MELI CARRILLO ([phone])[facility] [place] (SBHLAB)[address] No Panel Informationon 09-13 Atypical Lymphocytes Manual [facility] Bands Manual [facility] Basophils Manual [facility] Blasts Manual [facility] Eosinophils Manual [facility] Interpretation and review of laboratory results Abnormal [facility] Lymphocytes Manual 4 [facility] Metamyelocytes Manual [facility] Monocytes Manual 7 [facility] Myelocytes Manual [facility] Neutrophils Manual 89 [facility] Promyelocytes Manual [facility] Unclassified Cells, Manual [facility] Progress Noteon 09-13-2024 Progress Note Normal [facility] Progress Note Normal [facility] Progress Note Normal [facility] Progress Note Normal [facility] 30on 09-12-2024 30 Normal [facility] 30 Normal [facility] BLOOD GAS, VENOUSon 09-12-19 25 Base excess Calc (BldV) [Moles/Vol] 4.8 mmol/L High -3.0-3.0 [facility] Comment on above: Performed By: #### L [id number] ####Fire Operations Forester: MELI CARRILLO ([phone])[facility] [place] (SBHLAB)[address] CO2 [Moles/Vol] 30.1 mmol/L High 23.0-30.0 [facility] Comment on above: Performed By: #### L [id number] ####Fire Operations Forester: MELI CARRILLO ([phone])[facility] [place] (SBHLAB)[address] HCO3 (Bld) [Moles/Vol] 28.8 mmol/L Normal 21.0-30.0 S [facility] Comment on above: Performed By: #### L [id number] ####Fire Operations Forester: MELI CARRILLO ([phone])[facility] [place] (SBHLAB)[address] [place] [address] Hemoglobin (Bld) [Mass/Vol] 12.8 g/dL Low Screen only [facility] Comment on above: Performed By: #### L [id number] ####Fire Operations Forester: MELI CARRILLO ([phone])[facility] [place] (SBHLAB)[address] OXYGEN (MM HG) IN VENOUS BLOOD 36.2 mm Hg Normal [facility] Comment on above: Performed By: #### L [id number] ####Fire Operations Forester: MELI CARRILLO ([id number])[facility] [place] (SBHLAB)[address] OXYGEN SATURATION (%) IN VENOUS BLOOD 71.6 % Normal [facility] Comment on above: Performed By: #### L [id number] ####Fire Operations Forester: MELI CARRILLO ([id number])[facility] [place] (SBHLAB)155 [place] [address] [place] PCO2, TOSHIA 40.6 mm Hg Normal 38.0-56.0 [facility] Comment on above: Performed By: #### L [id number] ####Fire Operations Forester: MELI CARRILLO ([id number])[facility] [place] (SBHLAB)[address] PH VENOUS 7.469 High 7.320-7.420 [facility] Comment on above: Performed By: #### L [id number] ####Fire Operations Forester: MELI CARRILLO ([id number])[facility] (SBHLAB)[address] SOURCE OF OXYGEN Room Air Normal [facility] Comment on above: Result Comment: ANUPAM Alonso COMMENTS:Assessment of oxygenation is best done with an arterial blood gas determination. Reference ranges for pO2, bicarbonate, and base excess are for mixed venous blood. Specimens drawn from a peripheral vein will often have higher values. Performed By: #### L [id number] ####Fire Operations Forester: MELI CARRILLO ([id number])[facility] (SBHLAB)[address] CBC W Auto Differential pane l (Bld)on 09-12-2024 Basophils (Bld) [#/Vol] 0 10*3/uL 0.0 - 0.2 10*3/uL [facility] Basophils/100 WBC (Bld) 0.6 % 0.0 - 2.0 % [facility] Eosinophils (Bld) [#/Vol] 0.1 10*3/uL 0.0 - 0.5 10*3/uL [facility] Eosinophils/100 WBC (Bld) 1.5 % 0.0 - 6.0 % [facility] Erythrocyte distribution width (RBC) [Ratio] 14.8 % 11.5 - 15.0 % [facility] Hematocrit (Bld) [Volume fraction] 35.2 % Low 40.0 - 52.0 % [facility] Hemoglobin (Bld) [Mass/Vol] 11.7 g/dL Low 13.0 - 18.0 g/dL [facility] Immature granulocytes (Bld) [#/Vol] 0 10*3/uL NINF - 0.1 10*3/uL [facility] Immature granulocytes/100 WBC (Bld) 0.3 % 0.0 - 2.0 % [facility] Interpretation and review of laboratory results Abnormal [facility] Lymphocytes (Bld) [#/Vol] 0.6 10*3/uL Low 1.0 - 4.3 10*3/uL [facility] Lymphocytes/100 WBC (Bld) 9.1 % Low 15.0 - 45.0 % [facility] MCH (RBC) [Entitic mass] 31.3 pg 26.0 - 34.0 pg [facility] MCHC (RBC) [Mass/Vol] 33.2 % 30.5 - 36.0 % [facility] MCV (RBC) [Entitic vol] 94.1 fL 77.0 - 99.0 fL [facility] Monocytes (Bld) [#/Vol] 0.6 10*3/uL 0.0 - 0.9 10*3/uL [facility] Monocytes/100 WBC (Bld) 8.8 % 5.0 - 13.0 % [facility] Neutrophils (Bld) [#/Vol] 5.3 10*3/uL 1.8 - 7.5 10*3/uL [facility] Neutrophils/100 WBC (Bld) 79.7 % 38.0 - 82.0 % [facility] Nucleated RBC/100 WBC (Bld) [Ratio] 0 % [facility] Platelet mean volume (Bld) [Entitic vol] 10.6 fL 9.0 - 12.7 fL [facility] Platelets (Bld) [#/Vol] 157 10*3/uL 140 - 440 10*3/uL [facility] RBC (Bld) [#/Vol] 3.74 10*6/uL Low 4.40 - 5.9 0 10*6/uL [facility] WBC (Bld) [#/Vol] 6.6 10*3/uL 3.6 - 10.7 10*3/uL [facility] CBC WITH AUTO DIFFERENTIALon 09-12-2024 Basophils (Bld) [#/Vol] 0.0 10*3/uL Normal 0.0-0.2 [facility] Comment on above: Performed By: #### L [id number] ####Fire Operations Forester: MELI CARRILLO ([id number])[place] (SBAB)[address] [place] [address] Basophils/100 WBC (Bld) 0.6 % Normal 0.0-2.0 [facility] Comment on above: Performed By: #### L [id number] ####Fire Operations Forester: MELIIVELISSE CARRILLO ([phone])[facility] (SBHLAB)[address] [place] [address] Eosinophils (Bld) [#/Vol] 0.1 10*3/uL Normal 0.0-0.5 [facility] Comment on above: Performed By: #### L [id number] ####Fire Operations Forester: MELI GERARDO ([id number])[facility] (SBAB)[address] Eosinophils/100 WBC (Bld) 1.5 % Normal 0.0-6.0 [facility] Comment on above: Performed By: #### L [id number] ####Fire Operations Forester: MELI CARRILLO ([phone])[facility] ([facility])[address] [place] [address] Erythrocyte distribution width (RBC) [Ratio] 14.8 % Normal 11.5-15.0 [facility] Comment on above: Performed By: #### L [id number] ####Fire Operations Forester: MELI GERARDO ([phone])[facility] ([facility])[address] [place] [address] Hematocrit (Bld) [Volume fraction] 35.2 % Low 40.0-52.0 [facility] Comment on above: Performed By: #### L [id number] ####Fire Operations Forester: MELI PEREZMASSIEL ([id number])[facility])[address] Hemoglobin (Bld) [Mass/Vol] 11.7 g/dL Low 13.0-18.0 [facility] Comment on above: Performed By: #### L [id number] ####Fire Operations Forester: MELI PEREZMASSIEL ([id number])[facility] ([facility])[address] IMMATURE GRANS % 0.3 % Normal 0.0-2.0 [facility] Comment on above: Performed By: #### L [id number] ####Fire Operations Forester: MELIIVELISSE LEEZoniaMASSIEL ([id number])[facility]ania [facility] (SBHLAB)[address] IMMATURE GRANS ABSOLUTE 0.0 10*3/uL Normal <0.1 [facility] Comment on above: Performed By: #### L [id number] ####Fire Operations Forester: MELI GERARDO ([phone])[facility]EREstefania [facility]ORT[facility] (SBHLAB)[address] Lymphocytes (Bld) [#/Vol] 0.6 10*3/uL Low 1.0-4.3 [facility] Comment on above: Performed By: #### L [id number] ####Fire Operations Forester: MELIIVELISSE CARRILLO ([id number])[facility]ENTEREstefania [facility]ENORRE[facility] [place] (SBHLAB)[address] [place] [address] Lymphocytes/100 WBC (Bld) 9.1 % Low 15.0-45.0 [facility] Comment on above: Performed By: #### L [id number] ####Fire Operations Forester: MELI GERARDO ([id number])[facility]EREstefania [facility]ENORRE[facility] (SBHLAB)[address] MCH (RBC) [Entitic mass] 31.3 pg Normal 26.0-34.0 [facility] Comment on above: Performed By: #### L [id number] ####Fire Operations Forester: MELI PEREZMASSIEL ([id number])[facility]ENT[facility]efania [place] (SBHLAB)[address] [place] [address] MCHC 33.2 % Normal 30.5-36.0 [facility] Comment on above: Performed By: #### L [id number] ####Fire Operations Forester: MELI PEREZMASSIEL ([phone])[facility] [place] (SBHLAB)[address] MCV (RBC) [Entitic vol] 94.1 fL Normal 77.0-99.0 [facility] Comment on above: Performed By: #### L [id number] ####Fire Operations Forester: MELI CARRILLO ([id number])[facility] [place] (SBHLAB)[address] Monocytes (Bld) [#/Vol] 0.6 10*3/uL Normal 0.0-0.9 [facility] Comment on above: Performed By: #### L [id number] ####Fire Operations Forester: MELI TIDWELLCER ([id number])[facility] [place] (SBHLAB)[address] Monocytes/100 WBC (Bld) 8.8 % Normal 5.0-13.0 [facility] Comment on above: Performed By: #### L [id number] ####Fire Operations Forester: MELI PEREZMASSIEL ([id number])[facility] [place] (SBHLAB)[address] [place] [address] NEUTROPHILS ABSOLUTE 5.3 10*3/uL Normal 1.8-7.5 [facility] Comment on above: Performed By: #### L [id number] ####Fire Operations Forester: MELI PEREZMASSIEL ([id number])[facility] [place] (SBHLAB)[address] Neutrophils/100 WBC (Bld) 79.7 % Normal 38.0-82.0 [facility] Comment on above: Performed By: #### L [id number] ####Fire Operations Forester: MELI CARRILLO ([phone])[facility] [place] (SBHLAB)[address] NRBC 0.0 /100 WBCs Normal 0.0-2.0 [facility] Comment on above: Performed By: #### L [id number] ####Fire Operations Forester: MELI CARRILLO ([phone])[facility] [place] (SBHLAB)[address] Platelet mean volume (Bld) [Entitic vol] 10.6 fL Normal 9.0-12.7 [facility] Comment on above: Performed By: #### L [id number] ####Fire Operations Forester: MELI CARRILLO ([id number])[place] (SBHLAB)[address] Platelets (Bld) [#/Vol] 157 10*3/uL Normal 140-440 [facility] Comment on above: Performed By: #### L [id number] ####Fire Operations Forester: MELI CARRILLO ([id number])[facility]ENTEREstefania [place] (SBHLAB)[address] RBC (Bld) [#/Vol] 3.74 10*6/uL Low 4.40-5.90 [facility] Comment on above: Performed By: #### L [id number] ####Fire Operations Forester: MELI CARRILLO ([id number])[facility] [place] (SBHLAB)[address] WBC (Bld) [#/Vol] 6.6 10*3/uL Normal 3.6-10.7 [facility] Comment on above: Performed By: #### L [id number] ####Fire Operations Forester: MELI CARRILLO ([id number])[facility]EREstef[facility]ORT[facility] (SBHLAB)[address] COMPREHENSIVE METABOLIC PANE Maciel 09-12-2024 Albumin [Mass/Vol] 2.6 g/dL Low 3.4-4.8 [facility] Comment on above: Performed By: #### L [id number] ####Fire Operations Forester: MELI CARRILLO ([id number])[facility] (SBHLAB)[address] ALP [Catalytic activity/Vol] 160 U/L High 40-150 [facility] Comment on above: Performed By: #### L [id number] ####Fire Operations Forester: MELI CARRILLO ([phone])[facility] (SBHLAB)[address] ALT [Catalytic activity/Vol] 33 U/L Normal <40 [facility] Comment on above: Performed By: #### L [id number] ####Fire Operations Forester: MELI CARRILLO ([phone])[facility] (SBHLAB)[address] Anion gap [Moles/Vol] 8 mmol/L Normal 3-13 [facility] Comment on above: Performed By: #### L [id number] ####Fire Operations Forester: MELI PEREZMASSIEL ([id number])[facility] (SBHLAB)[address] AST [Catalytic activity/Vol] 77 U/L High <34 [facility] Comment on above: Result Comment: TCSi gnificant interference from hemolysis. Result integrity compromised. Interpret with caution. Performed By: #### L [id number] ####Fire Operations Forester: MELI CARRILLO ([id number])[facility] ([facility])[address] Bilirubin [Mass/Vol] 0.8 mg/dL Normal <1.2 [facility] Comment on above: Performed By: #### L [id number] ####Fire Operations Forester: MELI PEREZMASSIEL ([id number])[facility] (HLAB)[address] Calcium [Mass/Vol] 7.8 mg/dL Low 8.8-10.0 [facility] Comment on above: Performed By: #### L [id number] ####Fire Operations Forester: MELI CARRILLO ([id number])[facility] (HLAB)[address] Chloride [Moles/Vol] 100 mmol/L Normal 98-107 [facility] Comment on above: Performed By: #### L [id number] ####Fire Operations Forester: MELI CARRILLO ([id number])[facility] (SB[facility])[address] CO2 [Moles/Vol] 24 mmol/L Normal 23-31 [facility] Comment on above: Performed By: #### L [id number] ####Fire Operations Forester: MELI CARRILLO ([phone])[facility] (SB[facility])[address] Creatinine [Mass/Vol] 0.71 mg/dL Low 0.72-1.25 [facility] Comment on above: Performed By: #### L [id number] ####Fire Operations Forester: MELI CARRILLO ([id number])[facility] (SBHLAB)[address] GLOMERULAR FILTRATION RATE ML/MIN/1.73 SQ M.PREDICTED >90.0 Normal >60.0 [facility] Comment on above: Result Comment: Calc ulation based on the Chronic Kidney Disease Epidemiology Collaboration (CKD-EPI) equation refit without adjustment for raceORDER COMMENTS:Slightly hemolyzed Performed By: #### L [id number] ####Fire Operations Forester: MELI CARRILLO ([id number])[facility] (SBHLAB)[address] Glucose [Mass/Vol] 120 mg/dL High 82-115 [facility] Comment on above: Performed By: #### L [id number] ####Fire Operations Forester: MELI CARRILLO ([id number])[facility] (HLAB)[address] Potassium [Moles/Vol] 4.3 mmol/L Normal 3.5-5.1 [facility] Comment on above: Result Comment: TCSi gnificant interference from hemolysis. Result integrity compromised. Interpret with caution. Performed By: #### L [id number] ####Fire Operations Forester: MELI CARRILLO ([id number])[facility] (SBHLAB)[address] [place] [address] [place] Protein [Mass/Vol] 6.6 g/dL Normal 6.4-8.3 [facility] Comment on above: Result Comment: TCPo tential interference from hemolysis Performed By: #### L [id number] ####Fire Operations Forester: MELI CARRILLO ([phone])[facility] (SBHLAB)[address] [place] [address] [place] Sodium [Moles/Vol] 132 mmol/L Low 136-145 [facility] Comment on above: Performed By: #### L [id number] ####Fire Operations Forester: MELI CARRILLO ([id number])[facility] (SBHLAB)[address] Urea nitrogen [Mass/Vol] 14 mg/dL Normal 9-23 [facility] Comment on above: Performed By: #### L [id number] ####Fire Operations Forester: MELI CARRILLO ([id number])[facility] (SBHLAB)[address] Comprehensive metabolic 1998 panelon 09-12-2024 Albumin [Mass/Vol] 2.6 g/dL Low 3.4 - 4.8 g/dL [facility] ALP [Catalytic activity/Vol] 160 U/L High 40 - 150 U/L [facility] ALT [Catalytic activity/Vol] 33 U[facility]L [facility] Anion gap [Moles/Vol] 8 mmol/L 3 - 13 mmol/L [facility] AST [Catalytic activity/Vol] 77 U/L [facility] U/L [facility] Comment on above: TC Significant interference from hemolysis. Result integrity compromised. Interpret with caution. Bilirubin [Mass/Vol] 0.8 mg/dL NINF - 1.2 mg/dL [facility] Calcium [Mass/Vol] 7.8 mg/dL Low 8.8 - 10. 0 mg/dL [facility] Chloride [Moles/Vol] 100 mmol/L 98 - 10 7 mmol/L [facility] CO2 [Moles/Vol] 24 mmol/L 23 - 31 mmol/L [facility] Creatinine [Mass/Vol] 0.71 mg/dL Low 0.72 - 1.25 mg/dL [facility] GFR/1.73 sq M.predicted (S/P/Bld) [Vol rate/Area] - PINF [facility] Comment on above: Calculation based on the Chronic Kidney Disease Epidemiology Collaboration (CKD-EPI) equation refit without adjustment for race Glucose [Mass/Vol] 120 mg/dL High 82 - 115 mg/dL [facility] Interpretation and review of laboratory results Abnormal [facility] Potassium [Moles/Vol] 4.3 mmol/L 3.5 - 5.1 mmol/L [facility] Comment on above: TC Significant interference from hemolysis. Result integrity compromised. Interpret with caution. Protein [Mass/Vol] 6.6 g/dL 6.4 - 8.3 g/dL [facility] Comment on above: TC Potential interference from hemolysis Sodium [Moles/Vol] 132 mmol/L Low 136 - 145 mmol/L [facility] Urea nitrogen [Mass/Vol] 14 mg/dL 9 - 23 mg/dL [facility] Slightly hemolyzed [facility] Consulton 09-12-2024 Consult Normal [facility] Laboratory - Chemistry and C hemistry - challengeOrdered By: Radha Wharton on 09-12-2024 Base excess Calc (BldV) [Moles/Vol] 4.8 mmol/L High -3.0 - 3.0 mmol/L [facility] CO2 (BldV) [Partial pressure] 40.6 mm[Hg] [facility] CO2 [Moles/Vol] 30.1 mmol/L High 23.0 - 30.0 mmol/L [facility] HCO3 (Bld) [Moles/Vol] 28.8 mmol/L 21.0 - 30.0 mmol/L [facility] Oxygen (BldV) [Partial pressure] 36.2 mm[Hg] mm Hg [facility] pH (BldV) 7.469 [pH] High 7.320 - 7.420 [facility] Laboratory - Coagulationon 0 09-12-2024 aPTT Coag (PPP) [Time] 32.9 s High 20.0 - 30.5 s [facility] INR Coag (PPP) [Relative time] 1.2 {INR} High 0.9 - 1.1 [facility] Comment on above: Recommended Anticoag ulant Therapy: SEE BELOW ----- INR of 2.0 - 3.0 : - Prophylaxis of Venous Thrombosis (high-risk surgery) - Treatment of Venous Thrombosis - Treatment of Pulmonary Embolism (Includes tissue heart valves, Acute Myocardial Infarction to prevent systemic embolism, Valvular Heart Disease, and Atrial Fibrillation) ----- INR of 2.5 - 3.5 : - Mechanical Prosthetic Valves (high risk) - If oral anticoagulant therapy is used to prevent Myocardial Infarction PT Coag (Bld) [Time] 13.5 s High 9.0 - 12.0 s [facility] Laboratory - Hematology and Cell countsOrdered By: Radha Thompsonsa on 09-12-2024 Hemoglobin (Bld) [Mass/Vol] 12.8 g/dL Low Screen only [facility] No Panel Informationon 09-12 Interpretation and review of laboratory results Abnormal [facility] No Panel InformationOrdered By: Radha Wharton on 09-12-2024 Interpretation and review of laboratory results Abnormal [facility] Source Of Oxygen Room Air [facility] Assessment of oxygenation is best done with an arterial blood gas determination. Reference ranges for pO2, bicarbonate, and base excess are for mixed venous blood. Specimens drawn from a peripheral vein will often have higher values. [facility] Nursing Noteon 09-12-2024 Nursing Note MTS notified that patient is refusing to wear lunchroom monitor Normal [facility] PROTIME AND APTTon aPTT Coag (Bld) [Time] 32.9 s High 20.0-30.5 [facility] Comment on above: Performed By: #### L [id number] ####Fire Operations Forester: MELI CARRILLO ([id number])[facility] ([facility])[address] [place] [address] INR Coag (PPP) [Relative time] 1.2 {INR} High 0.9-1.1 [facility] Comment on above: Result Comment: Migue mmended Anticoagulant Therapy: SEE BELOW----- INR of 2.0 - 3.0 : - Prophylaxis of Venous Thrombosis (high-risk surgery) - Treatment of Venous Thrombosis - Treatment of Pulmonary Embolism (Includes tissue heart valves, Acute Myocardial Infarction to prevent systemic embolism, Valvular Heart Disease, and Atrial Fibrillation)----- INR of 2.5 - 3.5 : - Mechanical Prosthetic Valves (high risk) - If oral anticoagulant therapy is used to prevent Myocardial Infarction Performed By: #### L [id number] ####Fire Operations Forester: MELI CARRILLO ([phone])[facility] ([facility])[address] [place] [address] PT Coag (PPP) [Time] 13.5 s High 9.0-12.0 [facility] Comment on above: Performed By: #### L [id number] ####Fire Operations Forester: MELI CARRILLO ([phone])[facility]ENT[facility]ef[facility] [place] ([facility])[address] [place] [address] Progress Noteon 09-12-2024 Progress Note Normal [facility] Progress Note Normal [facility] Progress Note Normal [facility] Progress Note Normal [facility] Vital signsOrdered By: Elizabeth Wharton on 09-12-2024 Oxygen saturation in Venous blood 71.6 % [facility] CBC W Auto Differential pane l (Bld)Ordered By: Andrew Carmen on 09-11-2024 Erythrocyte distribution width (RBC) [Ratio] 14.6 % 11.5 - 15.0 % [facility] Hematocrit (Bld) [Volume fraction] 34.4 % Low 40.0 - 52.0 % [facility] Hemoglobin (Bld) [Mass/Vol] 11.5 g/dL Low 13.0 - 18.0 g/dL [facility] MCH (RBC) [Entitic mass] 31.3 pg 26.0 - 34.0 pg [facility] MCHC (RBC) [Mass/Vol] 33.4 % 30.5 - 36.0 % [facility] MCV (RBC) [Entitic vol] 93.7 fL 77.0 - 99.0 fL [facility] Platelet mean volume (Bld) [Entitic vol] 10.2 fL 9.0 - 12.7 fL [facility] Platelets (Bld) [#/Vol] 140 10*3/uL 140 - 440 10*3/uL [facility] RBC (Bld) [#/Vol] 3.67 10*6/uL Low 4.40 - 5.9 0 10*6/uL [facility] WBC (Bld) [#/Vol] 3.8 10*3/uL 3.6 - 10.7 10*3/uL [facility] CBC WITH AUTO DIFFERENTIALon 09-11-2024 Erythrocyte distribution width (RBC) [Ratio] 14.6 % Normal 11.5-15.0 [facility] Comment on above: Performed By: #### L [id number], [id number] ####Fire Operations Forester: MELI CARRILLO ([id number])[place] (SBHLAB)[address] Hematocrit (Bld) [Volume fraction] 34.4 % Low 40.0-52.0 [facility] Comment on above: Performed By: #### L [id number], [id number] ####Fire Operations Forester: MELI CARRILLO ([id number])[facility]ENTEREstefania [facility]ILLASENORRE[facility] (SBHLAB)[address] Hemoglobin (Bld) [Mass/Vol] 11.5 g/dL Low 13.0-18.0 [facility] Comment on above: Performed By: #### L [id number], [id number] ####Fire Operations Forester: MELI CARRILLO ([id number])[facility]ENTEREstef[facility] [place] (HLAB)[address] MCH (RBC) [Entitic mass] 31.3 pg Normal 26.0-34.0 [facility] Comment on above: Performed By: #### L [id number], [id number] ####Fire Operations Forester: MELI CARRILLO ([id number])[facility]ENT[facility] [place] (HLAB)[address] MCHC 33.4 % Normal 30.5-36.0 [facility] Comment on above: Performed By: #### L [id number], [id number] ####Fire Operations Forester: MELI CARRILLO ([id number])[facility] ([facility])[address] MCV (RBC) [Entitic vol] 93.7 fL Normal 77.0-99.0 [facility] Comment on above: Performed By: #### L [id number], [id number] ####Fire Operations Forester: MELI CARRILLO ([id number])[facility] (SBHLAB)[address] Platelet mean volume (Bld) [Entitic vol] 10.2 fL Normal 9.0-12.7 [facility] Comment on above: Performed By: #### L [id number], [id number] ####Fire Operations Forester: MELI CARRILLO ([phone])[facility] [place] (SBHLAB)[address] Platelets (Bld) [#/Vol] 140 10*3/uL Normal 140-440 [facility] Comment on above: Performed By: #### L [id number], [id number] ####Fire Operations Forester: MELI CARRILLO ([id number])[facility] [place] (SBHLAB)[address] RBC (Bld) [#/Vol] 3.67 10*6/uL Low 4.40-5.90 [facility] Comment on above: Performed By: #### L [id number], [id number] ####Fire Operations Forester: MELI CARRILLO ([id number])[facility] [place] (SBHLAB)[address] WBC (Bld) [#/Vol] 3.8 10*3/uL Normal 3.6-10.7 [facility] Comment on above: Performed By: #### L [id number], [id number] ####Fire Operations Forester: MELI CARRILLO ([id number])[facility] (SBHLAB)[address] COMPREHENSIVE METABOLIC PANE Maciel 09-11-2024 Albumin [Mass/Vol] 2.6 g/dL Low 3.4-4.8 [facility] Comment on above: Performed By: #### L [id number], [id number] ####Fire Operations Forester: MELI CARRILLO ([phone])[facility] [place] (SBHLAB)[address] ALP [Catalytic activity/Vol] 186 U/L High 40-150 [facility] Comment on above: Performed By: #### L [id number], [id number] ####Fire Operations Forester: MELI CARRILLO ([phone])[facility] [place] (SBHLAB)[address] ALT [Catalytic activity/Vol] 34 U/L Normal <40 [facility] Comment on above: Performed By: #### L [id number], LAB17 ####Fire Operations Forester: MELI CARRILLO ([phone])[facility] ([facility])[address] Anion gap [Moles/Vol] 9 mmol/L Normal 3-13 [facility] Comment on above: Performed By: #### L [id number], LAB17 ####Fire Operations Forester: MELI CARRILLO ([id number])[facility] (SBHLAB)[address] AST [Catalytic activity/Vol] 55 U/L High <34 [facility] Comment on above: Performed By: #### L [id number], LAB17 ####Fire Operations Forester: MELI CARRILLO ([id number])[facility] (SBHLAB)[address] Bilirubin [Mass/Vol] 0.9 mg/dL Normal <1.2 [facility] Comment on above: Performed By: #### L [id number], LAB17 ####Fire Operations Forester: MELI CARRILLO ([phone])[facility] (HLAB)[address] Calcium [Mass/Vol] 8.7 mg/dL Low 8.8-10.0 [facility] Comment on above: Performed By: #### L [id number], LAB17 ####Fire Operations Forester: MELI CARRILLO ([phone])[facility] (SBHLAB)155 [place] [address] [place] Chloride [Moles/Vol] 98 mmol/L Normal 98-107 [facility] Comment on above: Performed By: #### L [id number], LAB17 ####Fire Operations Forester: MELI CARRILLO ([id number])[facility] (SBHLAB)[address] CO2 [Moles/Vol] 28 mmol/L Normal 23-31 [facility] Comment on above: Performed By: #### L [id number], LAB17 ####Fire Operations Forester: MELI CARRILLO ([phone])[facility] (HLAB)[address] Creatinine [Mass/Vol] 0.73 mg/dL Normal 0.72-1.25 [facility] Comment on above: Performed By: #### L [id number], LAB17 ####Fire Operations Forester: MELI CARRILLO ([id number])[facility] GLOMERULAR FILTRATION RATE ML/MIN/1.73 SQ M.PREDICTED >90.0 Normal >60.0 [facility] Comment on above: Result Comment: Calc ulation based on the Chronic Kidney Disease Epidemiology Collaboration (CKD-EPI) equation refit without adjustment for race Performed By: #### L [id number], LAB17 ####Fire Operations Forester: MELI CARRILLO ([phone])[facility] ([facility] Glucose [Mass/Vol] 183 mg/dL High 82-115 [facility] Comment on above: Performed By: #### L [id number], LAB17 ####Fire Operations Forester: MELI CARRILLO ([phone])[facility] ([facility])[address] [place] [address] Potassium [Moles/Vol] 4.0 mmol/L Normal 3.5-5.1 [facility] Comment on above: Result Comment: [facility] potassium values may be up to 0.5 mmol/L lower than serum values. Performed By: #### L [id number], LAB17 ####Fire Operations Forester: MELI CARRILLO ([id number])[facility] ([facility] Protein [Mass/Vol] 6.4 g/dL Normal 6.4-8.3 [facility] Comment on above: Performed By: #### L AB129, LAB17 ####Fire Operations Forester: MELI CARRILLO ([id number])[facility] (SBHLAB)[address] Sodium [Moles/Vol] 135 mmol/L Low 136-145 [facility] Comment on above: Performed By: #### L AB129, LAB17 ####Fire Operations Forester: MELI CARRILLO ([id number])[facility] [place] (SBHLAB)[address] Urea nitrogen [Mass/Vol] 13 mg/dL Normal 9-23 [facility] Comment on above: Performed By: #### L AB129, LAB17 ####Fire Operations Forester: MELI CARRILLO ([phone])[facility] [place] (SBHLAB)[address] Comprehensive metabolic 1998 panelon 09-11-2024 Albumin [Mass/Vol] 2.6 g/dL Low 3.4 - 4.8 g/dL [facility] ALP [Catalytic activity/Vol] 186 U/L High 40 - 150 U/L [facility] ALT [Catalytic activity/Vol] 34 U/L NINF - 40 U/L [facility] Anion gap [Moles/Vol] 9 mmol/L 3 - 13 mmol/L [facility] AST [Catalytic activity/Vol] 55 U/L High NINF - 34 U/L [facility] Bilirubin [Mass/Vol] 0.9 [facility] mg/dL [facility] Calcium [Mass/Vol] 8.7 mg/dL Low 8.8 - 10. 0 mg/dL [facility] Chloride [Moles/Vol] 98 mmol/L 98 - 10 7 mmol/L [facility] CO2 [Moles/Vol] 28 mmol/L 23 - 31 mmol/L [facility] Creatinine [Mass/Vol] 0.73 mg/dL 0.72 - 1.25 mg/dL [facility] GFR/1.73 sq M.predicted (S/P/Bld) [Vol rate/Area] - PINF [facility] Comment on above: Calculation based on the Chronic Kidney Disease Epidemiology Collaboration (CKD-EPI) equation refit without adjustment for race Glucose [Mass/Vol] 183 mg/dL High 82 - 115 mg/dL [facility] Interpretation and review of laboratory results Abnormal [facility] Potassium [Moles/Vol] 4 mmol/L 3.5 - 5.1 mmol/L [facility] Comment on above: Plasma potassium natalie ues may be up to 0.5 mmol/L lower than serum values. Protein [Mass/Vol] 6.4 g/dL 6.4 - 8.3 g/dL [facility] Sodium [Moles/Vol] 135 mmol/L Low 136 - 145 mmol/L [facility] Urea nitrogen [Mass/Vol] 13 mg/dL 9 - 23 mg/dL [facility] ETHYL GLUCURONIDE SCREEN, UR INEon 09-11-2024 ETHYL GLUCURONIDE, URINE Negative Normal Negative [facility] Comment on above: Result Comment: ANUPAM R COMMENTS:Ethyl Glucuronide has been screened by Immunoassay at a 500 ng/mL threshold. POSITIVE results are not confirmed by a more specific alternative method unless requested. If confirmation is needed, request confirmation under separate order.NOTE: These results are for medical treatment only. Analysis performed using non-forensic procedures.This test has not been cleared by the US Food and Drug Administration (FDA). The FDA has determined that such clearance or approval is not necessary. The performance characteristics have been determined by the clinical laboratories of [facility]. Performed By: #### L [id number] ####Fire Operations Forester: ALEIDA BAEZA ([id number])[address] Laboratory - Chemistry and C hemistry - challengeon 09-11-2024 TSH Qn 0.6 m[IU]/L [facility] Laboratory - Hematology and Cell countson 09-11-2024 Lymphocytes (Bld) [#/Vol] 0.1 10*3/uL Low 1.0 - 4.3 10*3/uL [facility] Lymphocytes/100 WBC (Bld) 2 % Low 15 - 45 % [facility] Monocytes (Bld) [#/Vol] 0 10*3/uL 0.0 - 0.9 10*3/uL [facility] Monocytes/100 WBC (Bld) 0 % Low 5 - 13 % [facility] Neutrophils (Bld) [#/Vol] 3.7 10*3/uL 1.8 - 7.5 10*3/uL [facility] Ovalocytes LM Ql (Bld) Slight Abnormal (none) [facility] Poikilocytosis LM Ql (Bld) Slight Abnormal (none) [facility] RBC morphology finding Nom (Bld) abnormal [facility] Segmented neutrophils/100 WBC (Bld) 98 % High 38 - 82 % [facility] Stomatocytes LM Ql (Bld) Slight Abnormal (none) [facility] Target cells LM Ql (Bld) Slight Abnormal (none) [facility] MANUAL DIFFERENTIAL (CELLAVI [place]STON)on 09-11-2024 BAND NEUTROPHILS TOTAL PER COUNTED LEUKOCYTES BY MANUAL COUNT Normal [facility] Comment on above: Performed By: #### L [id number], [id number] ####Fire Operations Forester: MELI CARRILLO ([id number])[facility] [place] (SBHLAB)[address] [place] [address] [place] BASOPHILS TOTAL PER COUNTED LEUKOCYTES BY MANUAL COUNT Normal [facility] Comment on above: Performed By: #### L [id number], [id number] ####Fire Operations Forester: MELI CARRILLO ([id number])[facility] [place] (SBHLAB)[address] [place] [address] [place] BLASTS TOTAL PER COUNTED LEUKOCYTES BY MANUAL COUNT Normal [facility] Comment on above: Performed By: #### L [id number], [id number] ####Fire Operations Forester: MELI CARRILLO ([id number])[facility] [place] (SBHLAB)[address] [place] [address] [place] EOSINOPHILS TOTAL PER COUNTED LEUKOCYTES BY MANUAL COUNT Normal [facility] Comment on above: Performed By: #### L [id number], [id number] ####Fire Operations Forester: MELI CARRILLO ([id number])[facility] [place] (SBHLAB)[address] [place] [address] [place] LYMPHOCYTES (10*3/UL) IN BLOOD-CELLAVISION 0.1 10*3/uL Low 1.0-4.3 [facility] Comment on above: Performed By: #### L [id number], [id number] ####Fire Operations Forester: MELI CARRILLO ([id number])[facility] [place] (SB[facility]AB)[address] [place] [address] [place] LYMPHOCYTES TOTAL PER COUNTED LEUKOCYTES BY MANUAL COUNT 2 Normal [facility] Comment on above: Performed By: #### L [id number], [id number] ####Fire Operations Forester: MELI PEREZMASSIEL ([id number])[facility] [place] (SBHLAB)[address] [place] [address] [place] LYMPHOCYTES/100 LEUKOCYTES IN BLOOD-CELLAVISION 2 % Low 15-45 [facility] Comment on above: Performed By: #### L [id number], [id number] ####Fire Operations Forester: MELI PEREZMASSIEL ([id number])[facility] [place] (SBHLAB)[address] [place] [address] [place] METAMYELOCYTES TOTAL PER COUNTED LEUKOCYTES BY MANUAL COUNT Normal [facility] Comment on above: Performed By: #### L [id number], [id number] ####Fire Operations Forester: MELI PEREZMASSIEL ([id number])[facility] [place] (SB[facility]AB)[address] [place] [address] [place] MONOCYTES (10*3/UL) IN BLOOD-CELLAVISION 0.0 10*3/uL Normal 0.0-0.9 [facility] Comment on above: Performed By: #### L [id number], [id number] ####Fire Operations Forester: MELI CARRILLO ([id number])[facility] [place] (SBHLAB)[address] [place] [address] [place] MONOCYTES TOTAL PER COUNTED LEUKOCYTES BY MANUAL COUNT 0 Normal [facility] Comment on above: Performed By: #### L [id number], [id number] ####Fire Operations Forester: MELI CARRILLO ([id number])[facility] [place] (SBHLAB)[address] [place] [address] [place] MONOCYTES/100 LEUKOCYTES IN BLOOD-RIGOBERTO 0 % Low 5-13 [facility] Comment on above: Performed By: #### L [id number], [id number] ####Fire Operations Forester: MELI CARRILLO ([id number])[facility] [place] (SB[facility])[address] [place] [address] [place] MYELOCYTES COUNTED BY MANUAL COUNT Normal [facility] Comment on above: Performed By: #### L [id number], [id number] ####Fire Operations Forester: MELI CARRILLO ([id number])[facility] [place] (SB[facility])[address] [place] [address] [place] NEUTROPHILS TOTAL PER COUNTED LEUKOCYTES BY MANUAL COUNT 98 Normal [facility] Comment on above: Performed By: #### L [id number], [id number] ####Fire Operations Forester: MELI CARRILLO ([id number])[facility] [place] (SB[facility])[address] [place] [address] [place] OVALOCYTES PRESENCE IN BLOOD BY LIGHT MICROSCOPY Slight Abnormal (none) [facility] Comment on above: Performed By: #### L [id number], [id number] ####Fire Operations Forester: MLEI CARRILLO ([id number])[facility] (SB[facility])[address] [place] [address] [place] POIKILOCYTOSIS (PRESENCE) IN BLOOD BY LIGHT MICROSCOPY Slight Abnormal (none) [facility] Comment on above: Performed By: #### L [id number], [id number] ####Fire Operations Forester: MELI CARRILLO ([id number])[facility] [place] (SBHLAB)[address] [place] [address] [place] PROMYELOCYTES TOTAL PER COUNTED LEUKOCYTES BY MANUAL COUNT Normal [facility] Comment on above: Performed By: #### L [id number], [id number] ####Fire Operations Forester: MELI CARRILLO ([id number])[facility] ([facility])[address] [place] [address] [place] RBC MORPHOLOGY IN BLOOD abnormal Normal [facility] Comment on above: Performed By: #### L [id number], [id number] ####Fire Operations Forester: MELI CARRILLO ([id number])[facility] ([facility])[address] [place] [address] [place] SEGMENTED NEUTROPHILS (10*3/UL) IN BLOOD-CELLAVISION 3.7 10*3/uL Normal 1.8-7.5 [facility] Comment on above: Performed By: #### L [id number], [id number] ####Fire Operations Forester: MELI CARRILLO ([id number])[facility] (SBHLAB)[address] SEGMENTED NEUTROPHILS/100 LEUKOCYTES-CE 98 % High 38-82 [facility] Comment on above: Performed By: #### L [id number], [id number] ####Fire Operations Forester: MELI CARRILLO ([id number])[facility] (SBHLAB)[address] STOMATOCYTES IN BLOOD BY LIGHT MICROSCOPY Slight Abnormal (none) [facility] Comment on above: Performed By: #### L [id number], [id number] ####Fire Operations Forester: MELI CARRILLO ([phone])[facility] ([facility])[address] TARGET CELLS IN BLOOD BY LIGHT MICROSCOPY Slight Abnormal (none) [facility] Comment on above: Performed By: #### L [id number], [id number] ####Fire Operations Forester: MELI CARRILLO ([phone])[facility] ([facility])[address] UNCLASSIFIED CELLS TOTAL PER COUNTED LEUKOCYTES BY MANUAL COUNT Normal [facility] Comment on above: Performed By: #### L [id number], [id number] ####Fire Operations Forester: MELI CARRILLO ([id number])[facility])[address] VARIANT LYMPHOCYTES TOTAL PER COUNTED LEUKOCYTES BY MANUAL COUNT Normal [facility] Comment on above: Performed By: #### L [id number], [id number] ####Fire Operations Forester: MELI CARRILLO ([id number])[facility] ([facility])[address] No Panel InformationOrdered By: Rody Apontebamelisa on 09-11-2024 ETHYL GLUCURONIDE, URINE Negative Negative [facility] Ethyl Glucuronide parada s been screened by Immunoassay at a 500 ng/mL threshold. POSITIVE results are not confirmed by a more specific alternative method unless requested. If confirmation is needed, request confirmation under separate order. NOTE: These results are for medical treatment only. Analysis performed using non-forensic procedures. This test has not been cleared by the US Food and Drug Administration (FDA). The FDA has determined that such clearance or approval is not necessary. The performance characteristics have been determined by the clinical laboratories of [facility]. [facility] No Panel Informationon 09-11 Atypical Lymphocytes Manual [facility] Bands Manual [facility] Basophils Manual [facility] Blasts Manual [facility] Eosinophils Manual [facility] Lymphocytes Manual 2 [facility] Metamyelocytes Manual [facility] Monocytes Manual 0 [facility] Myelocytes Manual [facility] Neutrophils Manual 98 [facility] Promyelocytes Manual [facility] Unclassified Cells, Manual [facility] No Panel InformationOrdered By: Andrew Carmen on 09-11-2024 Interpretation and review of laboratory results Abnormal [facility] Progress Noteon 09-11-2024 Progress Note Normal [facility] Progress Note Normal [facility] Progress Note Normal [facility] Progress Note Normal [facility] Progress Note Normal [facility] THYROID STIMULATING HORMONEo n 09-11-2024 THYROID STIMULATING HORMONE 0.60 uIU/mL Normal 0.35-4.94 [facility] Comment on above: Performed By: #### L [id number], LAB17 ####Fire Operations Forester: MELI CARRILLO ([id number])[facility] ([facility])[address] [place] [address] TSH Qnon 09-11-2024 Interpretation and review of laboratory results Normal [facility] 36on 09-10-2024 36 Tired to call again , spoke with Melodie she will proceed with pt to the ER Normal [facility] 36 Tried to CB had to L M to call office if pt is worsening can take to the ER [facility] 08/19 pneumonia refused SNF now swelling worsening at home noncompliant with meds has CRTD perm afib ETOH Normal [facility] 36 Normal [facility] BASIC METABOLIC PANELon Anion gap [Moles/Vol] 7 mmol/L Normal 3-13 [facility] Comment on above: Performed By: #### L [id number], [id number], LAB20, LAB15, [id number] ####Fire Operations Forester: MELI CARRILLO ([id number])[facility] [place] (SBHLAB)[address] Calcium [Mass/Vol] 8.5 mg/dL Low 8.8-10.0 [facility] Comment on above: Performed By: #### L [id number], [id number], LAB20, LAB15, [id number] ####Fire Operations Forester: MELI CARRILLO ([phone])[facility] (SBHLAB)[address] Chloride [Moles/Vol] 101 mmol/L Normal 98-107 [facility] Comment on above: Performed By: #### L [id number], [id number], LAB20, LAB15, [id number] ####Fire Operations Forester: MELI CARRILLO ([phone])[facility]EN[facility]RE[facility] (SBHLAB)[address] CO2 [Moles/Vol] 27 mmol/L Normal 23-31 [facility] Comment on above: Performed By: #### L [id number], [id number], LAB20, LAB15, [id number] ####Fire Operations Forester: MELI CARRILLO ([id number])[facility] [place] (SBHLAB)[address] Creatinine [Mass/Vol] 0.66 mg/dL Low 0.72-1.25 [facility] Comment on above: Performed By: #### L [id number], [id number], LAB20, LAB15, [id number] ####Fire Operations Forester: MELI CARRILLO ([id number])[facility] [place] (SBHLAB)[address] GLOMERULAR FILTRATION RATE ML/MIN/1.73 SQ M.PREDICTED >90.0 Normal >60.0 [facility] Comment on above: Result Comment: Calc ulation based on the Chronic Kidney Disease Epidemiology Collaboration (CKD-EPI) equation refit without adjustment for race Performed By: #### L [id number], [id number], LAB20, LAB15, [id number] ####Fire Operations Forester: MELI CARRILLO ([id number])[facility] (SBHLAB)[address] Glucose [Mass/Vol] 87 mg/dL Normal 82-115 [facility] Comment on above: Performed By: #### L [id number], [id number], LAB20, LAB15, [id number] ####Fire Operations Forester: MELI CARRILLO ([id number])[facility] (SBHLAB)[address] Potassium [Moles/Vol] 4.4 mmol/L Normal 3.5-5.1 [facility] Comment on above: Result Comment: [facility] potassium values may be up to 0.5 mmol/L lower than serum values. Performed By: #### L [id number], [id number], LAB20, LAB15, [id number] ####Fire Operations Forester: MELI CARRILLO ([id number])[facility] (SB[facility])[address] Sodium [Moles/Vol] 135 mmol/L Low 136-145 [facility] Comment on above: Performed By: #### L [id number], [id number], LAB20, LAB15, [id number] ####Fire Operations Forester: MELI CARRILLO ([id number])[facility] (SB[facility])[address] Urea nitrogen [Mass/Vol] 10 mg/dL Normal 9-23 [facility] Comment on above: Performed By: #### L [id number], [id number], LAB20, LAB15, [id number] ####Fire Operations Forester: MELI CARRILLO ([id number])[facility] (HLAB)[address] BLOOD GAS, VENOUSon 09-10-19 25 Base excess Calc (BldV) [Moles/Vol] 3.2 mmol/L High -3.0-3.0 [facility] Comment on above: Performed By: #### L [id number] ####Fire Operations Forester: MELI CARRILLO ([id number])[facility] [place] (SBHLAB)[address] [place] [address] [place] CO2 [Moles/Vol] 33.0 mmol/L High 23.0-30.0 [facility] Comment on above: Performed By: #### L [id number] ####Fire Operations Forester: MELI CARRILLO ([id number])[facility] [place] (SBHL[facility])[address] HCO3 (Bld) [Moles/Vol] 31.1 mmol/L High 21.0-30.0 [facility] Comment on above: Performed By: #### L [id number] ####Fire Operations Forester: MELI CARRILLO ([id number])[facility] [place] (SB[facility])[address] Hemoglobin (Bld) [Mass/Vol] 12.9 g/dL Low Screen only [facility] Comment on above: Performed By: #### L [id number] ####Fire Operations Forester: MELI CARRILLO ([phone])[facility] [place] (SBHLAB)[address] OXYGEN (MM HG) IN VENOUS BLOOD 30.6 mm Hg Normal [facility] Comment on above: Performed By: #### L [id number] ####Fire Operations Forester: MELI CARRILLO ([id number])[facility] [place] (SB[facility])[address] OXYGEN SATURATION (%) IN VENOUS BLOOD 53.1 % Normal [facility] Comment on above: Performed By: #### L [id number] ####Fire Operations Forester: MELI CARRILLO ([id number])[facility] [place] (SBHLAB)[address] [place] [address] [place] PCO2, TOSHIA 63.6 mm Hg High 38.0-56.0 [facility] Comment on above: Performed By: #### L [id number] ####Fire Operations Forester: MELI CARRILLO ([id number])[facility] ([facility])[address] PH VENOUS 7.307 Low 7.320-7.420 [facility] Comment on above: Performed By: #### L [id number] ####Fire Operations Forester: MELI CARRILLO ([phone])[facility] ([facility])[address] [place] [address] SOURCE OF OXYGEN 2L Normal [facility] Comment on above: Result Comment: NCOR JIM COMMENTS:Assessment of oxygenation is best done with an arterial blood gas determination. Reference ranges for pO2, bicarbonate, and base excess are for mixed venous blood. Specimens drawn from a peripheral vein will often have higher values. Performed By: #### L [id number] ####Fire Operations Forester: MELI CARRILLO ([id number])[facility] (SB[facility])[address] [place] [address] Basic metabolic 1998 panelon 09-10-2024 Anion gap [Moles/Vol] 7 mmol/L 3 - 13 mmol/L [facility] Calcium [Mass/Vol] 8.5 mg/dL Low 8.8 - 10. 0 mg/dL [facility] Chloride [Moles/Vol] 101 mmol/L 98 - 10 7 mmol/L [facility] CO2 [Moles/Vol] 27 mmol/L 23 - 31 mmol/L [facility] Creatinine [Mass/Vol] 0.66 mg/dL Low 0.72 - 1.25 mg/dL [facility] GFR/1.73 sq M.predicted (S/P/Bld) [Vol rate/Area] - PINF [facility] Comment on above: Calculation based on the Chronic Kidney Disease Epidemiology Collaboration (CKD-EPI) equation refit without adjustment for race Glucose [Mass/Vol] 87 mg/dL 82 - 115 mg/dL [facility] Potassium [Moles/Vol] 4.4 mmol/L 3.5 - 5.1 mmol/L [facility] Comment on above: Plasma potassium natalie ues may be up to 0.5 mmol/L lower than serum values. Sodium [Moles/Vol] 135 mmol/L Low 136 - 145 mmol/L [facility] Urea nitrogen [Mass/Vol] 10 mg/dL 9 - 23 mg/dL [facility] CBC W Auto Differential pane l (Bld)on 09-10-2024 Basophils (Bld) [#/Vol] 0 10*3/uL 0.0 - 0.2 10*3/uL [facility] Basophils/100 WBC (Bld) 0.8 % 0.0 - 2.0 % [facility] Eosinophils (Bld) [#/Vol] 0.3 10*3/uL 0.0 - 0.5 10*3/uL [facility] Eosinophils/100 WBC (Bld) 5.2 % 0.0 - 6.0 % [facility] Erythrocyte distribution width (RBC) [Ratio] 14.8 % 11.5 - 15.0 % [facility] Hematocrit (Bld) [Volume fraction] 35.4 % Low 40.0 - 52.0 % [facility] Hemoglobin (Bld) [Mass/Vol] 11.6 g/dL Low 13.0 - 18.0 g/dL [facility] Immature granulocytes (Bld) [#/Vol] 0 10*3/uL NINF - 0.1 10*3/uL [facility] Immature granulocytes/100 WBC (Bld) 0.4 % 0.0 - 2.0 % [facility] Interpretation and review of laboratory results Abnormal [facility] Lymphocytes (Bld) [#/Vol] 0.7 10*3/uL Low 1.0 - 4.3 10*3/uL [facility] Lymphocytes/100 WBC (Bld) 13.6 % Low 15.0 - 45.0 % [facility] MCH (RBC) [Entitic mass] 31.1 pg 26.0 - 34.0 pg [facility] MCHC (RBC) [Mass/Vol] 32.8 % 30.5 - 36.0 % [facility] MCV (RBC) [Entitic vol] 94.9 fL 77.0 - 99.0 fL [facility] Monocytes (Bld) [#/Vol] 0.5 10*3/uL 0.0 - 0.9 10*3/uL [facility] Monocytes/100 WBC (Bld) 9.4 % 5.0 - 13.0 % [facility] Neutrophils (Bld) [#/Vol] 3.7 10*3/uL 1.8 - 7.5 10*3/uL [facility] Neutrophils/100 WBC (Bld) 70.6 % 38.0 - 82.0 % [facility] Nucleated RBC/100 WBC (Bld) [Ratio] 0 % [facility] Platelet mean volume (Bld) [Entitic vol] 10 fL 9.0 - 12.7 fL [facility] Platelets (Bld) [#/Vol] 162 10*3/uL 140 - 440 10*3/uL [facility] RBC (Bld) [#/Vol] 3.73 10*6/uL Low 4.40 - 5.9 0 10*6/uL [facility] WBC (Bld) [#/Vol] 5.2 10*3/uL 3.6 - 10.7 10*3/uL [facility] CBC WITH AUTO DIFFERENTIALon 09-10-2024 Basophils (Bld) [#/Vol] 0.0 10*3/uL Normal 0.0-0.2 [facility] Comment on above: Performed By: #### L [id number] ####Fire Operations Forester: MELI CARRILLO ([id number])[facility] ([facility])[address] [place] [address] Basophils/100 WBC (Bld) 0.8 % Normal 0.0-2.0 [facility] Comment on above: Performed By: #### L [id number] ####Fire Operations Forester: MELI CARRILLO ([id number])[facility] ([facility])[address] [place] [address] Eosinophils (Bld) [#/Vol] 0.3 10*3/uL Normal 0.0-0.5 [facility] Comment on above: Performed By: #### L [id number] ####Fire Operations Forester: MELI CARRILLO ([id number])[facility] [place] ([facility])[address] [place] [address] [place] Eosinophils/100 WBC (Bld) 5.2 % Normal 0.0-6.0 [facility] Comment on above: Performed By: #### L [id number] ####Fire Operations Forester: MELI CARRILLO ([id number])[facility] [place] ([facility])[address] Erythrocyte distribution width (RBC) [Ratio] 14.8 % Normal 11.5-15.0 [facility] Comment on above: Performed By: #### L [id number] ####Fire Operations Forester: MELI PEREZMASSIEL ([id number])[facility] [place] ([facility])[address] Hematocrit (Bld) [Volume fraction] 35.4 % Low 40.0-52.0 [facility] Comment on above: Performed By: #### L [id number] ####Fire Operations Forester: MELI PEREZMASSIEL ([id number])[facility] [place] ([facility])[address] Hemoglobin (Bld) [Mass/Vol] 11.6 g/dL Low 13.0-18.0 [facility] Comment on above: Performed By: #### L [id number] ####Fire Operations Forester: MELI CARRILLO ([id number])[facility] [place] ([facility])[address] IMMATURE GRANS % 0.4 % Normal 0.0-2.0 [facility] Comment on above: Performed By: #### L [id number] ####Fire Operations Forester: MELI PEREZMASSIEL ([id number])[facility] [place] ([facility])[address] IMMATURE GRANS ABSOLUTE 0.0 10*3/uL Normal <0.1 [facility] Comment on above: Performed By: #### L [id number] ####Fire Operations Forester: MELI CARRILLO ([id number])[facility] [place] ([facility])[address] Lymphocytes (Bld) [#/Vol] 0.7 10*3/uL Low 1.0-4.3 [facility] Comment on above: Performed By: #### L [id number] ####Fire Operations Forester: MELI CARRILLO ([id number])[facility] [place] ([facility])[address] Lymphocytes/100 WBC (Bld) 13.6 % Low 15.0-45.0 [facility] Comment on above: Performed By: #### L [id number] ####Fire Operations Forester: MELI CARRILLO ([id number])[facility] [place] ([facility])[address] MCH (RBC) [Entitic mass] 31.1 pg Normal 26.0-34.0 [facility] Comment on above: Performed By: #### L [id number] ####Fire Operations Forester: MELI CARRILLO ([id number])[facility] ([facility])[address] MCHC 32.8 % Normal 30.5-36.0 [facility] Comment on above: Performed By: #### L [id number] ####Fire Operations Forester: MELI CARRILLO ([id number])[facility] ([facility])[address] MCV (RBC) [Entitic vol] 94.9 fL Normal 77.0-99.0 [facility] Comment on above: Performed By: #### L [id number] ####Fire Operations Forester: MELI CARRILLO ([id number])[facility] [place] ([facility])[address] Monocytes (Bld) [#/Vol] 0.5 10*3/uL Normal 0.0-0.9 [facility] Comment on above: Performed By: #### L [id number] ####Fire Operations Forester: MELI CARRILLO ([id number])[facility] [place] ([facility])[address] Monocytes/100 WBC (Bld) 9.4 % Normal 5.0-13.0 [facility] Comment on above: Performed By: #### L [id number] ####Fire Operations Forester: MELI CARRILLO ([id number])[facility] [place] ([facility])[address] NEUTROPHILS ABSOLUTE 3.7 10*3/uL Normal 1.8-7.5 [facility] Comment on above: Performed By: #### L [id number] ####Fire Operations Forester: MELI CARRILLO ([id number])[facility] [place] ([facility])[address] Neutrophils/100 WBC (Bld) 70.6 % Normal 38.0-82.0 [facility] Comment on above: Performed By: #### L [id number] ####Fire Operations Forester: MELI CARRILLO ([id number])[facility] [place] ([facility])[address] NRBC 0.0 /100 WBCs Normal 0.0-2.0 [facility] Comment on above: Performed By: #### L [id number] ####Fire Operations Forester: MELI PEREZMASSIEL ([id number])[facility] [place] ([facility])[address] Platelet mean volume (Bld) [Entitic vol] 10.0 fL Normal 9.0-12.7 [facility] Comment on above: Performed By: #### L [id number] ####Fire Operations Forester: MELI CARRILLO ([id number])[facility] [place] ([facility])[address] Platelets (Bld) [#/Vol] 162 10*3/uL Normal 140-440 [facility] Comment on above: Performed By: #### L [id number] ####Fire Operations Forester: MELI PEREZMASSIEL ([id number])[facility] [place] ([facility])[address] [place] [address] [place] RBC (Bld) [#/Vol] 3.73 10*6/uL Low 4.40-5.90 [facility] Comment on above: Performed By: #### L [id number] ####Fire Operations Forester: MELI CARRILLO ([id number])[facility] [place] ([facility])[address] WBC (Bld) [#/Vol] 5.2 10*3/uL Normal 3.6-10.7 [facility] Comment on above: Performed By: #### L [id number] ####Fire Operations Forester: MELI CARRILLO ([phone])[facility] ([facility])[address] ECG 12-LEADon 09-10-2024 ECG 12-LEAD IMPRESSION: Atrial fibrillation Ventricular premature complex Left bundle branch block ST elevation secondary to IVCD Electronically Signed On 09-10-2024 21:06:59 EST by Charlie Mcintyre Normal [facility] ED Nursing Noteon 09-10-2024 ED Nursing Note Pt ambulated in goode ways to bathroom with a steady gait. Dinner tray to chair side. Normal [facility] ED Nursing Note Ambulated with yoel ble spo2. Patient ambulated well and stayed above 93% Normal [facility] ED Provider Noteon ED Provider Note Normal [facility] ETHANOLon 09-10-2024 ETHANOL IN SER/PLAS <10 Normal <10 [facility] Comment on above: Result Comment: This sample may have been collected by using an alcohol pad to swab the skin. Ethanol-containing antiseptics before venipuncture may not be causes of spurious or false positive results of alcohol measurement at least when ideal venipunctures can be performed. However, under non-ideal collection conditions, alcohol contamination is a possibility. Results to be correlated clinically.ORDER COMMENTS:SHEARING MACHINE FEEDER depression is seen >100 mg/dL.NOTE: This result is for medical treatment only. Analysis performed using non-forensic procedures. Performed By: #### L [id number], [id number] ####Fire Operations Forester: MELI CARRILLO ([id number])[facility] Ethanol (Bld) [Mass/Vol]on 0 09-10-2024 Ethanol [Mass/Vol] mg/dL NINF - 10 mg/dL [facility] Comment on above: This sample may have been collected by using an alcohol pad to swab the skin. Ethanol-containing antiseptics before venipuncture may not be causes of spurious or false positive results of alcohol measurement at least when ideal venipunctures can be performed. However, under non-ideal collection conditions, alcohol contamination is a possibility. Results to be correlated clinically. Interpretation and review of laboratory results Normal [facility] SHEARING MACHINE FEEDER depression is se en >100 mg/dL. NOTE: This result is for medical treatment only. Analysis performed using non-forensic procedures. [facility] HEPATIC FUNCTION PANELon Albumin [Mass/Vol] 2.6 g/dL Low 3.4-4.8 [facility] Comment on above: Performed By: #### L [id number], [id number], LAB20, LAB15, [id number] ####Fire Operations Forester: MELI CARRILLO ([id number])[facility] ([facility])[address] ALP [Catalytic activity/Vol] 212 U/L High 40-150 [facility] Comment on above: Performed By: #### L [id number], [id number], LAB20, LAB15, [id number] ####Fire Operations Forester: MELI CARRILLO ([id number])[facility])[address] ALT [Catalytic activity/Vol] 36 U/L Normal <40 [facility] Comment on above: Performed By: #### L [id number], [id number], LAB20, LAB15, [id number] ####Fire Operations Forester: MELI CARRILLO ([id number])[facility])[address] AST [Catalytic activity/Vol] 62 U/L High <34 [facility] Comment on above: Performed By: #### L [id number], [id number], LAB20, LAB15, [id number] ####Fire Operations Forester: MELI CARRILLO ([id number])[facility])[address] Bilirubin [Mass/Vol] 1.0 mg/dL Normal <1.2 [facility] Comment on above: Performed By: #### L [id number], [id number], LAB20, LAB15, [id number] ####Fire Operations Forester: MELI PEREZMASSIEL ([id number])[facility])[address] Bilirubin.indirect [Mass/Vol] 0.5 mg/dL High <0.5 [facility] Comment on above: Performed By: #### L [id number], [id number], LAB20, LAB15, [id number] ####Fire Operations Forester: MELI LEECALDERON ([id number])[facility])[address] Protein [Mass/Vol] 6.3 g/dL Low 6.4-8.3 [facility] Comment on above: Result Comment: Seru m protein values are higher than plasma values. Samples from recumbent persons are lower by up to 0.5 g/dL as compared to ambulatory persons. After 60 years values are lower by up to 0.2 g/dL. Performed By: #### L [id number], [id number], LAB20, LAB15, [id number] ####Fire Operations Forester: MELI PEREZMASSIEL ([id number])[facility] ([facility])[address] [place] [address] HIGH SENSITIVITY TROPONIN, S ERIAL BASELINEon 09-10-2024 TROPONIN HIGH SENSITIVITY BASELINE 37 ng/L High <=35 [facility] Comment on above: Performed By: #### L [id number], [id number], LAB20, LAB15, [id number] ####Fire Operations Forester: MELI CARRILLO ([id number])[facility] ([facility])[address] [place] [address] HIGH SENSITIVITY TROPONIN, S ERIAL, SECOND TESTon 09-10-2024 TROPONIN HS DELTA, BASELINE TO SECOND 1 ng/L Normal <=2 [facility] Comment on above: Result Comment: This specimen was collected more than 20 minutes away from the 2 hour target. Use of this delta with the 2 hour troponin algorithm is not recommended, individualized clinical assessment is needed.A troponin delta greater than or equal to 15 ng/L is significant for acute cardiac injury.Values less than 15 but greater than 2 are an intermediate change requiring a 3rd serial troponin to be drawn.Values less than or equal to 2 indicate acute cardiac injury is not likely, see external algorithms for further clinical guidance. Performed By: #### L AB46, [id number] ####Fire Operations Forester: MELI CARRILLO ([id number])[facility] ([facility])[address] TROPONIN HS, SERIAL REFLEX, TEST TWO 38 ng/L High <=35 [facility] Comment on above: Performed By: #### L AB46, [id number] ####Fire Operations Forester: MELI LEECALDERON ([id number])[facility] ([facility])[address] Hepatic function 2000 panelo n 09-10-2024 Albumin [Mass/Vol] 2.6 g/dL Low 3.4 - 4.8 g/dL [facility] ALP [Catalytic activity/Vol] 212 U/L High 40 - 150 U/L [facility] ALT [Catalytic activity/Vol] 36 U/L NINF - 40 U/L [facility] AST [Catalytic activity/Vol] 62 U/L [facility] Bilirubin [Mass/Vol] 1 mg/dL [facility] - 1.2 mg/dL [facility] Bilirubin.conjugated [Mass/Vol] 0.5 mg/dL [facility] - 0.[facility] mg/dL [facility] Protein [Mass/Vol] 6.3 g/dL Low 6.4 - 8.3 g/dL [facility] Comment on above: Serum protein values are higher than plasma values. Samples from recumbent persons are lower by up to 0.5 g/dL as compared to ambulatory persons. After 60 years values are lower by up to 0.2 g/dL. Laboratory - Chemistry and C hemistry - challengeon 09-10-2024 Magnesium [Mass/Vol] 1.6 mg/dL 1.6 - 2 .6 mg/dL [facility] Laboratory - Chemistry and C hemistry - challengeOrdered By: Nitesh Pina on 09-10-2024 Base excess Calc (BldV) [Moles/Vol] 3.2 mmol/L High -3.0 - 3.0 mmol/L [facility] CO2 (BldV) [Partial pressure] 63.6 mm[Hg] High [facility] CO2 [Moles/Vol] 33 mmol/L High 23.0 - 30.0 mmol/L [facility] HCO3 (Bld) [Moles/Vol] 31.1 mmol/L High 21.0 - 30.0 mmol/L [facility] Oxygen (BldV) [Partial pressure] 30.6 mm[Hg] mm Hg [facility] pH (BldV) 7.307 [pH] Low 7.320 - 7.420 [facility] Laboratory - Hematology and Cell countsOrdered By: Nitesh Pina on 09-10-2024 Hemoglobin (Bld) [Mass/Vol] 12.9 g/dL Low Screen only [facility] MAGNESIUMon 09-10-2024 Magnesium [Mass/Vol] 1.6 mg/dL Normal 1.6-2.6 [facility] Comment on above: Result Comment: ANUPAM Alonso COMMENTS:Draw if IV diuretics administered.Higher values can be expected in females during menses. Performed By: #### L [id number], [id number], LAB20, LAB15, [id number] ####Fire Operations Forester: MELI CARRILLO ([phone])[facility] ([facility])[address] [place] [address] Magnesium [Mass/Vol]on 09-10 Interpretation and review of laboratory results Normal [facility] Higher values can be expected in females during menses. [facility] NT PRO BNPon 09-10-2024 Natriuretic peptide B (Bld) [Mass/Vol] 9148 pg/mL High <125 [facility] Comment on above: Performed By: #### L [id number], [id number], LAB20, LAB15, [id number] ####Fire Operations Forester: MELI CARRILLO ([id number])[facility] ([facility])[address] [place] [address] Natriuretic peptide B [Mass/ Vol]on 09-10-2024 Interpretation and review of laboratory results Abnormal [facility] Natriuretic peptide B (Bld) [Mass/Vol] 9148 pg/mL High NINF - 125 pg/mL [facility] No Panel Informationon 09-10 P [place] 0 degrees [facility] VA Interval 0 ms [facility] QRS [place] 211 degrees [facility] QRSD Interval 168 ms [facility] QT Interval 488 ms [facility] QTC Interval 546 ms [facility] T Wave [place] 54 degrees [facility] Atrial fibrillation Ventricular premature complex Left bundle branch block ST elevation secondary to IVCD Electronically Signed On 09-10-2024 21:06:59 EST by Charlie Mcintyre CV Charlie Bryant MD - 09/10/2024 IMPRESSION: Atrial fibrillation Ventricular premature complex Left bundle branch block ST elevation secondary to IVCD Electronically Signed On 09-10-2024 21:06:59 EST by Charlie Mcintyre [facility] Interpretation and review of laboratory results Abnormal [facility] Troponin HS Delta, Baseline to Second 1 ng/L NINF - 2 ng/L [facility] Comment on above: This specimen was co llected more than 20 minutes away from the 2 hour target. Use of this delta with the 2 hour troponin algorithm is not recommended, individualized clinical assessment is needed. A troponin delta greater than or equal to 15 ng/L is significant for acute cardiac injury. Values less than 15 but greater than 2 are an intermediate change requiring a 3rd serial troponin to be drawn. Values less than or equal to 2 indicate acute cardiac injury is not likely, see external algorithms for further clinical guidance. Troponin HS, Serial Second 38 ng/L High NINF - 35 ng/L [facility] Interpretation and review of laboratory results Abnormal [facility] Troponin HS, Serial Baseline 37 ng/L High NINF - 35 ng/L [facility] Interpretation and review of laboratory results Abnormal [facility] No Panel InformationOrdered By: Nitesh Pina on 09-10-2024 Interpretation and review of laboratory results Abnormal [facility] Source Of Oxygen 2L [facility] Comment on above: ME Assessment of oxygenation is best done with an arterial blood gas determination. Reference ranges for pO2, bicarbonate, and base excess are for mixed venous blood. Specimens drawn from a peripheral vein will often have higher values. [facility] Vital signson 09-10-2024 Heart rate 75 /min bpm [facility] Vital signsOrdered By: Dasha Pina on 09-10-2024 Oxygen saturation in Venous blood 53.1 % [facility] XR Chest Single viewon 09-10 CHF with interstitial edema and pleural effusions. Report Dictated on Electronically Signed By: Shaun Wilson MD Electronically Signed Date/Time: 09/10/2024 3:03 PM [facility] Patient Name: KRYSTINA LYNCH : 1955 Exam Date/Time: 09/10/2024 14:40 Procedure: XR CHEST 1 VIEW Ordering Provider: MCINTYRE JONATHAN Reason For Exam: DYSPNEA AP CHEST X-RAY CLINICAL INDICATION: DYSPNEA TECHNIQUE: AP portable x-ray of the chest. COMPARISON: None FINDINGS: Limitations: Body habitus and portable technique Support devices: Left pacemaker with stable leads Heart/Mediastinum: Moderate to markedly enlarged cardiopericardial silhouette and pulmonary vascular redistribution. Lungs: Probable pleural effusions, atelectasis and interstitial edema bilaterally. Bones: Chronic deformity of the left proximal humerus. [facility] Shaun Wilson M D - 09/10/2024 Patient Name: KRYSTINA MARKHAM : 1955 Exam Date/Time: 09/10/2024 14:40 Procedure: XR CHEST 1 VIEW Ordering Provider: MCINTYRE JONATHAN Reason For Exam: DYSPNEA AP CHEST X-RAY CLINICAL INDICATION: DYSPNEA TECHNIQUE: AP portable x-ray of the chest. COMPARISON: None FINDINGS: Limitations: Body habitus and portable technique Support devices: Left pacemaker with stable leads Heart/Mediastinum: Moderate to markedly enlarged cardiopericardial silhouette and pulmonary vascular redistribution. Lungs: Probable pleural effusions, atelectasis and interstitial edema bilaterally. Bones: Chronic deformity of the left proximal humerus. IMPRESSION: CHF with interstitial edema and pleural effusions. Report Dictated on Electronically Signed By: Shaun Wilson MD Electronically Signed Date/Time: 09/10/2024 3:03 PM EST [facility] Radiology Study observation (narrative) [facility] XR Chest Single viewOrdered By: Shaun Wilson on 09-10-2024 [facility] Work Phone: 36on 09-08-2024 36 Normal [facility] Progress Noteon 09-08-2024 Progress Note Normal [facility] 36on 09-04-2024 36 Normal [facility] Progress Noteon 09-04-2024 Progress Note Normal [facility] Progress Noteon 09-01-2024 Progress Note Normal [facility] 36on 08-28-2024 36 Called patients pharmacy. Pharmacist states patient picked up his Doxycycline yesterday. Pt. Has not returned any of our calls but has picked up his prescription. Normal [facility] Progress Noteon 08-28-2024 Progress Note Normal [facility] 36on 08-27-2024 36 Attempted to contact the patient but call went straight to . Message left for patient to call the [facility]. Normal [facility] 36on 08-25-2024 36 Attempted to call patient. Left a message to call the office. Normal [facility] 36 Normal [facility] [phone] 08-22-2024 [phone] [facility] [phone] Attempted to call to talk with patient regarding home care needs. No answer on room phone. No answer on preferred line, voicemail was left on preferred line with callback information. [facility] [phone] 08-22-2024 [phone] [facility] CBC W Auto Differential pane l (Bld)on 08-22-2024 Basophils (Bld) [#/Vol] 0.1 10*3/uL 0.0 - 0.2 10*3/uL [facility] Basophils/100 WBC (Bld) 0.9 % 0.0 - 2.0 % [facility] Eosinophils (Bld) [#/Vol] 0.3 10*3/uL 0.0 - 0.5 10*3/uL [facility] Eosinophils/100 WBC (Bld) 3.7 % 0.0 - 6.0 % [facility] Erythrocyte distribution width (RBC) [Ratio] 15 % 11.5 - 15.0 % [facility] Hematocrit (Bld) [Volume fraction] 44.3 % 40.0 - 52.0 % [facility] Hemoglobin (Bld) [Mass/Vol] 14.3 g/dL 13.0 - 18.0 g/dL [facility] Immature granulocytes (Bld) [#/Vol] 0 10*3/uL NINF - 0.1 10*3/uL [facility] Immature granulocytes/100 WBC (Bld) 0.4 % 0.0 - 2.0 % [facility] Interpretation and review of laboratory results Abnormal [facility] Lymphocytes (Bld) [#/Vol] 0.8 10*3/uL Low 1.0 - 4.3 10*3/uL [facility] Lymphocytes/100 WBC (Bld) 10 % Low 15.0 - 45.0 % [facility] MCH (RBC) [Entitic mass] 31.2 pg 26.0 - 34.0 pg [facility] MCHC (RBC) [Mass/Vol] 32.3 % 30.5 - 36.0 % [facility] MCV (RBC) [Entitic vol] 96.5 fL 77.0 - 99.0 fL [facility] Monocytes (Bld) [#/Vol] 0.7 10*3/uL 0.0 - 0.9 10*3/uL [facility] Monocytes/100 WBC (Bld) 8.7 % 5.0 - 13.0 % [facility] Neutrophils (Bld) [#/Vol] 5.8 10*3/uL 1.8 - 7.5 10*3/uL [facility] Neutrophils/100 WBC (Bld) 76.3 % 38.0 - 82.0 % [facility] Nucleated RBC/100 WBC (Bld) [Ratio] 0 % [facility] Platelet mean volume (Bld) [Entitic vol] 10.2 fL 9.0 - 12.7 fL [facility] Platelets (Bld) [#/Vol] 145 10*3/uL 140 - 440 10*3/uL [facility] RBC (Bld) [#/Vol] 4.59 10*6/uL 4.40 - 5.9 0 10*6/uL [facility] WBC (Bld) [#/Vol] 7.6 10*3/uL 3.6 - 10.7 10*3/uL [facility] CBC WITH AUTO DIFFERENTIALon 08-22-2024 Basophils (Bld) [#/Vol] 0.1 10*3/uL Normal 0.0-0.2 [facility] Comment on above: Performed By: #### L [id number] ####Fire Operations Forester: MELI CARRILLO ([id number])[facility] [place] (SBHLAB)[address] Basophils/100 WBC (Bld) 0.9 % Normal 0.0-2.0 [facility] Comment on above: Performed By: #### L [id number] ####Fire Operations Forester: MELI CARRILLO ([id number])[facility] (SB[facility])[address] [place] [address] Eosinophils (Bld) [#/Vol] 0.3 10*3/uL Normal 0.0-0.5 [facility] Comment on above: Performed By: #### L [id number] ####Fire Operations Forester: MELI CARRILLO ([phone])[facility] (SB[facility])[address] Eosinophils/100 WBC (Bld) 3.7 % Normal 0.0-6.0 [facility] Comment on above: Performed By: #### L [id number] ####Fire Operations Forester: MELI CARRILLO ([id number])[facility] (SB[facility])[address] Erythrocyte distribution width (RBC) [Ratio] 15.0 % Normal 11.5-15.0 [facility] Comment on above: Performed By: #### L [id number] ####Fire Operations Forester: MELI CARRILLO ([id number])[facility] (SBHLAB)[address] [place] [address] Hematocrit (Bld) [Volume fraction] 44.3 % Normal 40.0-52.0 [facility] Comment on above: Performed By: #### L [id number] ####Fire Operations Forester: MELI CARRILLO ([id number])[facility] [place] (SBHLAB)[address] Hemoglobin (Bld) [Mass/Vol] 14.3 g/dL Normal 13.0-18.0 [facility] Comment on above: Performed By: #### L [id number] ####Fire Operations Forester: MELI CARRILLO ([phone])[facility] [place] ([facility])[address] IMMATURE GRANS % 0.4 % Normal 0.0-2.0 [facility] Comment on above: Performed By: #### L [id number] ####Fire Operations Forester: MELI PEREZMASSIEL ([id number])[facility] ([facility])[address] [place] [address] IMMATURE GRANS ABSOLUTE 0.0 10*3/uL Normal <0.1 [facility] Comment on above: Performed By: #### L [id number] ####Fire Operations Forester: MELI PEREZMASSIEL ([id number])[facility] [place] ([facility])[address] [place] [address] Lymphocytes (Bld) [#/Vol] 0.8 10*3/uL Low 1.0-4.3 [facility] Comment on above: Performed By: #### L [id number] ####Fire Operations Forester: MELI CARRILLO ([id number])[facility] [place] ([facility])[address] [place] [address] Lymphocytes/100 WBC (Bld) 10.0 % Low 15.0-45.0 [facility] Comment on above: Performed By: #### L [id number] ####Fire Operations Forester: MELI CARRILLO ([id number])[facility] ([facility])[address] [place] [address] MCH (RBC) [Entitic mass] 31.2 pg Normal 26.0-34.0 [facility] Comment on above: Performed By: #### L [id number] ####Fire Operations Forester: MELI CARRILLO ([id number])[facility] [place] (SBHLAB)[address] MCHC 32.3 % Normal 30.5-36.0 [facility] Comment on above: Performed By: #### L [id number] ####Fire Operations Forester: MELI CARRILLO ([id number])[facility] [place] (SBHLAB)[address] MCV (RBC) [Entitic vol] 96.5 fL Normal 77.0-99.0 [facility] Comment on above: Performed By: #### L [id number] ####Fire Operations Forester: MELI CARRILLO ([phone])[facility] [place] (SBHLAB)[address] Monocytes (Bld) [#/Vol] 0.7 10*3/uL Normal 0.0-0.9 [facility] Comment on above: Performed By: #### L [id number] ####Fire Operations Forester: MELI CARRILLO ([id number])[facility] [place] (SBHLAB)[address] Monocytes/100 WBC (Bld) 8.7 % Normal 5.0-13.0 [facility] Comment on above: Performed By: #### L [id number] ####Fire Operations Forester: MELI CARRILLO ([id number])[facility] [place] (SBHLAB)[address] NEUTROPHILS ABSOLUTE 5.8 10*3/uL Normal 1.8-7.5 [facility] Comment on above: Performed By: #### L [id number] ####Fire Operations Forester: MELI CARRILLO ([id number])[facility] [place] (SBHLAB)[address] Neutrophils/100 WBC (Bld) 76.3 % Normal 38.0-82.0 [facility] Comment on above: Performed By: #### L [id number] ####Fire Operations Forester: MELI CARRILLO ([phone])[facility] [place] (SBHLAB)[address] NRBC 0.0 /100 WBCs Normal 0.0-2.0 [facility] Comment on above: Performed By: #### L [id number] ####Fire Operations Forester: EMLI PEREZMASSIEL ([id number])[facility] [place] (SBHLAB)[address] Platelet mean volume (Bld) [Entitic vol] 10.2 fL Normal 9.0-12.7 [facility] Comment on above: Performed By: #### L [id number] ####Fire Operations Forester: MELI PEREZMASSIEL ([id number])[facility] [place] (SBHLAB)[address] Platelets (Bld) [#/Vol] 145 10*3/uL Normal 140-440 [facility] Comment on above: Performed By: #### L [id number] ####Fire Operations Forester: MELI PEREZMASSIEL ([id number])[facility] [place] (SBHLAB)[address] RBC (Bld) [#/Vol] 4.59 10*6/uL Normal 4.40-5.90 [facility] Comment on above: Performed By: #### L [id number] ####Fire Operations Forester: MELI PEREZMASSIEL ([id number])[facility]ENTEREstefania [place] (SBHLAB)[address] WBC (Bld) [#/Vol] 7.6 10*3/uL Normal 3.6-10.7 [facility] Comment on above: Performed By: #### L [id number] ####Fire Operations Forester: MELI PEREZMASSIEL ([id number])[facility] [place] (SBHLAB)[address] COMPREHENSIVE METABOLIC PANE Maciel 08-22-2024 Albumin [Mass/Vol] 3.0 g/dL Low 3.4-4.8 [facility] Comment on above: Performed By: #### L [id number], LAB17 ####Fire Operations Forester: MELI CARRILLO ([phone])[facility] [place] (SBHLAB)[address] ALP [Catalytic activity/Vol] 407 U/L High 40-150 [facility] Comment on above: Performed By: #### L AB103, LAB17 ####Fire Operations Forester: MELI CARRILLO ([id number])[facility] [place] (SBHLAB)[address] ALT [Catalytic activity/Vol] 34 U/L Normal <40 [facility] Comment on above: Performed By: #### L AB103, LAB17 ####Fire Operations Forester: MELI TIDWELLCER ([phone])[facility] [place] (SBHLAB)[address] Anion gap [Moles/Vol] 9 mmol/L Normal 3-13 [facility] Comment on above: Performed By: #### L AB103, LAB17 ####Fire Operations Forester: MELI CARRILLO ([id number])[facility] [place] (SBHLAB)[address] AST [Catalytic activity/Vol] 68 U/L High <34 [facility] Comment on above: Performed By: #### L AB103, LAB17 ####Fire Operations Forester: MELI CARRILLO ([phone])[facility] [place] (SBHLAB)[address] Bilirubin [Mass/Vol] 0.7 mg/dL Normal <1.2 [facility] Comment on above: Performed By: #### L AB103, LAB17 ####Fire Operations Forester: MELI CARRILLO ([id number])[facility] [place] (SBHLAB)[address] Calcium [Mass/Vol] 8.7 mg/dL Low 8.8-10.0 [facility] Comment on above: Performed By: #### L AB103, LAB17 ####Fire Operations Forester: MELI CARRILLO ([id number])[facility]EREstefania [facility] (SBHLAB)[address] [place] [address] [place] Chloride [Moles/Vol] 98 mmol/L Normal 98-107 [facility] Comment on above: Performed By: #### L AB103, LAB17 ####Fire Operations Forester: MELI CARRILLO ([id number])[facility] (SBHLAB)[address] CO2 [Moles/Vol] 29 mmol/L Normal 23-31 [facility] Comment on above: Performed By: #### L AB103, LAB17 ####Fire Operations Forester: MELI CARRILLO ([id number])[facility] (SBHLAB)[address] Creatinine [Mass/Vol] 0.88 mg/dL Normal 0.72-1.25 [facility] Comment on above: Performed By: #### L AB103, LAB17 ####Fire Operations Forester: MELI CARRILLO ([id number])[facility] (SBHLAB)[address] GLOMERULAR FILTRATION RATE ML/MIN/1.73 SQ M.PREDICTED >90.0 Normal >60.0 [facility] Comment on above: Result Comment: Calc ulation based on the Chronic Kidney Disease Epidemiology Collaboration (CKD-EPI) equation refit without adjustment for race Performed By: #### L AB103, LAB17 ####Fire Operations Forester: MELI CARRILLO ([id number])[facility] (SB[facility])[address] [place] [address] [place] Glucose [Mass/Vol] 73 mg/dL Low 82-115 [facility] Comment on above: Performed By: #### L AB103, LAB17 ####Fire Operations Forester: MELI CARRILLO ([phone])[facility] (SBHLAB)[address] [place] [address] [place] Potassium [Moles/Vol] 3.4 mmol/L Low 3.5-5.1 [facility] Comment on above: Result Comment: [facility] potassium values may be up to 0.5 mmol/L lower than serum values. Performed By: #### L AB103, LAB17 ####Fire Operations Forester: MELI CARRILLO ([phone])[facility] [place] (SBHLAB)[address] Protein [Mass/Vol] 7.3 g/dL Normal 6.4-8.3 [facility] Comment on above: Performed By: #### L AB103, LAB17 ####Fire Operations Forester: MELI CARRILLO ([phone])[facility] ([facility])[address] Sodium [Moles/Vol] 136 mmol/L Normal 136-145 [facility] Comment on above: Performed By: #### L AB103, LAB17 ####Fire Operations Forester: MELI CARRILLO ([id number])[facility] (SBHLAB)[address] Urea nitrogen [Mass/Vol] 16 mg/dL Normal 9-23 [facility] Comment on above: Performed By: #### L AB103, LAB17 ####Fire Operations Forester: MELI CARRILLO ([id number])[facility] (SBHLAB)[address] Comprehensive metabolic 1998 panelon 08-22-2024 Albumin [Mass/Vol] 3 g/dL Low 3.4 - 4.8 g/dL [facility] ALP [Catalytic activity/Vol] 407 U/L High 40 - 150 U/L [facility] ALT [Catalytic activity/Vol] 34 U/L NINF - 40 U/L [facility] Anion gap [Moles/Vol] 9 mmol/L 3 - 13 mmol/L [facility] AST [Catalytic activity/Vol] 68 U/L High NINF - 34 U/L [facility] Bilirubin [Mass/Vol] 0.7 mg/dL NINF - 1.2 mg/dL [facility] Calcium [Mass/Vol] 8.7 mg/dL Low 8.8 - 10. 0 mg/dL [facility] Chloride [Moles/Vol] 98 mmol/L 98 - 10 7 mmol/L [facility] CO2 [Moles/Vol] 29 mmol/L 23 - 31 mmol/L [facility] Creatinine [Mass/Vol] 0.88 mg/dL 0.72 - 1.25 mg/dL [facility] GFR/1.73 sq M.predicted (S/P/Bld) [Vol rate/Area] - PINF [facility] Comment on above: Calculation based on the Chronic Kidney Disease Epidemiology Collaboration (CKD-EPI) equation refit without adjustment for race Glucose [Mass/Vol] 73 mg/dL Low 82 - 115 mg/dL [facility] Interpretation and review of laboratory results Abnormal [facility] Potassium [Moles/Vol] 3.4 mmol/L Low 3.5 - 5.1 mmol/L [facility] Comment on above: Plasma potassium natalie ues may be up to 0.5 mmol/L lower than serum values. Protein [Mass/Vol] 7.3 g/dL 6.4 - 8.3 g/dL [facility] Sodium [Moles/Vol] 136 mmol/L 136 - 145 mmol/L [facility] Urea nitrogen [Mass/Vol] 16 mg/dL 9 - 23 mg/dL [facility] Laboratory - Chemistry and C hemistry - challengeon 08-22-2024 Magnesium [Mass/Vol] 1.9 mg/dL 1.6 - 2 .6 mg/dL [facility] MAGNESIUMon 08-22-2024 Magnesium [Mass/Vol] 1.9 mg/dL Normal 1.6-2.6 [facility] Comment on above: Result Comment: ORDShilpa R COMMENTS:Higher values can be expected in females during menses. Performed By: #### L AB103, LAB17 ####Fire Operations Forester: MELI CARRILLO ([id number])[facility] (SBAB)[address] [place] [address] Magnesium [Mass/Vol]on 08-22 Interpretation and review of laboratory results Normal [facility] Higher values can be expected in females during menses. [facility] Nursing Noteon 08-22-2024 Nursing Note Pt discharged home. PIV's removed from RAC & LAC, catheters intact, DSD's applied. Tele monitor removed, cleaned per protocol & returned to drawer. Discharge instructions given and all questions answered. Normal [facility] PNEUMONIA PCR PANELon 2023 PNEUMONIA PCR PANEL Normal [facility] Comment on above: Performed By: #### L [id number] ####Fire Operations Forester: ALEIDA BAEZA ([id number])[facility] ([facility])[address] [place] [address] Progress Noteon 08-22-2024 Progress Note Normal [facility] Progress Note Nutrition rescreen completed. Chart reviewed. Patient to be monitored and followed by the diet er medical technician. Normal [facility] Progress Note Normal [facility] Progress Note Normal [facility] Progress Note Normal [facility] RESPIRATORY CULTURE AND STAI Non 08-22-2024 RESPIRATORY CULTURE AND STAIN Normal [facility] Comment on above: Performed By: #### L [id number] ####Fire Operations Forester: ALEIDA BAEZA ([id number])[facility] ([facility])[address] [place] [address] Respiratory pathogens DNA an d RNA panel GEO+non-probe (Lower resp)Ordered By: Pau Jauregui on 08-22-2024 Acinetobacter baumannii complex Not detected Not Detected [facility] Adenovirus Not detected Not Detected [facility] Chlamydia pneumoniae Not detected Not Detected [facility] Enterobacter cloacae complex Not detected Not Detected [facility] Escherichia coli Not detected Not Detected [facility] FLUAV RNA GEO+non-probe Ql (Lower resp) Not detected Not Detected [facility] FLUBV RNA GEO+non-probe Ql (Lower resp) Not detected Not Detected [facility] Haemophilus influenzae Not detected Not Detecte d [facility] Human Metapneumovirus Not detected Not Detected [facility] Human Rhinovirus/Enterovirus Not detected Not Detected [facility] Interpretation and review of laboratory results Abnormal [facility] Klebsiella (Enterobacter) aerogenes Not detected Not Detected [facility] Klebsiella oxytoca Not detected Not Detected [facility] Klebsiella pneumoniae Not detected Not Detected [facility] Legionella pneumophila Not detected Not Detecte d [facility] mecA Detected Abnormal Not Detected [facility] Moraxella catarrhalis Not detected Not Detected [facility] Mycoplasma pneumoniae Not detected Not Detected [facility] Parainfluenza virus Not detected Not Detected [facility] Proteus spp Not detected Not Detected [facility] Pseudomonas aeruginosa Not detected Not Detecte d [facility] RSV RNA GEO+probe Ql (Resp) Not detected Not Detected [facility] S. agalactiae Org specific cx Ql (Vag fld) Not detected Not Detected [facility] SARS-CoV-2 (COVID-19) RNA GEO+non-probe Ql (Nph) Not detected Not Detected [facility] SARS-CoV-2 (COVID-19) RNA GEO+probe Ql (Unsp spec) A positive Coronavirus (not SARS-CoV-2) result on the [employer] Pneumonia PCR Panel should be taken in the context of other clinical data as increased false positive detection has been noted by the program lead. Consider collecting a nasopharyngeal sample for the Respiratory Pathogens Panel by PCR if clinically indicated. Methodology: Multiplex PCR This panel does not test for SARS-CoV-2 (Covid-19). The following antimicrobial resistance gene is reported if the appropriate organism is detected: mecA. The following antimicrobial resistance genes are reported if detected and the appropriate organisms are detected: CTX-M, IMP, KPC, NDM, OXA-48-like, and VIM. [facility] Serratia marcescens Not detected Not Detected [facility] Staphylococcus aureus Detected Abnormal Not Detected S [facility] Streptococcus pneumoniae Not detected Not Detected [facility] Streptococcus pyogenes Not detected Not Detecte d [facility] 30on 08-21-2024 30 Normal [facility] CBC W Auto Differential pane l (Bld)on 08-21-2024 Basophils (Bld) [#/Vol] 0.1 10*3/uL 0.0 - 0.2 10*3/uL [facility] Basophils/100 WBC (Bld) 0.9 % 0.0 - 2.0 % [facility] Eosinophils (Bld) [#/Vol] 0.2 10*3/uL 0.0 - 0.5 10*3/uL [facility] Eosinophils/100 WBC (Bld) 2.2 % 0.0 - 6.0 % [facility] Erythrocyte distribution width (RBC) [Ratio] 14.8 % 11.5 - 15.0 % [facility] Hematocrit (Bld) [Volume fraction] 42.1 % 40.0 - 52.0 % [facility] Hemoglobin (Bld) [Mass/Vol] 13.8 g/dL 13.0 - 18.0 g/dL [facility] Immature granulocytes (Bld) [#/Vol] 0.1 10*3/uL High NINF - 0.1 10*3/uL [facility] Immature granulocytes/100 WBC (Bld) 0.7 % 0.0 - 2.0 % [facility] Interpretation and review of laboratory results Abnormal [facility] Lymphocytes (Bld) [#/Vol] 0.8 10*3/uL Low 1.0 - 4.3 10*3/uL [facility] Lymphocytes/100 WBC (Bld) 8.8 % Low 15.0 - 45.0 % [facility] MCH (RBC) [Entitic mass] 31.3 pg 26.0 - 34.0 pg [facility] MCHC (RBC) [Mass/Vol] 32.8 % 30.5 - 36.0 % [facility] MCV (RBC) [Entitic vol] 95.5 fL 77.0 - 99.0 fL [facility] Monocytes (Bld) [#/Vol] 0.6 10*3/uL 0.0 - 0.9 10*3/uL [facility] Monocytes/100 WBC (Bld) 6.8 % 5.0 - 13.0 % [facility] Neutrophils (Bld) [#/Vol] 7.4 10*3/uL 1.8 - 7.5 10*3/uL [facility] Neutrophils/100 WBC (Bld) 80.6 % 38.0 - 82.0 % [facility] Nucleated RBC/100 WBC (Bld) [Ratio] 0 % [facility] Platelet mean volume (Bld) [Entitic vol] 10.6 fL 9.0 - 12.7 fL [facility] Platelets (Bld) [#/Vol] 162 10*3/uL 140 - 440 10*3/uL [facility] RBC (Bld) [#/Vol] 4.41 10*6/uL 4.40 - 5.9 0 10*6/uL [facility] WBC (Bld) [#/Vol] 9.2 10*3/uL 3.6 - 10.7 10*3/uL [facility] CBC WITH AUTO DIFFERENTIALon 08-21-2024 Basophils (Bld) [#/Vol] 0.1 10*3/uL Normal 0.0-0.2 [facility] Comment on above: Performed By: #### L [id number] ####Fire Operations Forester: MELIIVELISSE LEEZoniaMASSIEL ([id number])[facility] [place] (SBHLAB)[address] Basophils/100 WBC (Bld) 0.9 % Normal 0.0-2.0 [facility] Comment on above: Performed By: #### L [id number] ####Fire Operations Forester: MELI GERARDO ([id number])[facility] [place] (SBHLAB)[address] Eosinophils (Bld) [#/Vol] 0.2 10*3/uL Normal 0.0-0.5 [facility] Comment on above: Performed By: #### L [id number] ####Fire Operations Forester: MELIIVELISSE CARRILLO ([id number])[facility] [place] (SBHLAB)[address] Eosinophils/100 WBC (Bld) 2.2 % Normal 0.0-6.0 [facility] Comment on above: Performed By: #### L [id number] ####Fire Operations Forester: MELI GERARDO ([phone])[facility] [place] (SBHLAB)[address] Erythrocyte distribution width (RBC) [Ratio] 14.8 % Normal 11.5-15.0 [facility] Comment on above: Performed By: #### L [id number] ####Fire Operations Forester: MELI PEREZMASSIEL ([phone])[facility] [place] (SBHL[facility])[address] Hematocrit (Bld) [Volume fraction] 42.1 % Normal 40.0-52.0 [facility] Comment on above: Performed By: #### L [id number] ####Fire Operations Forester: MELI LEECALDERON ([id number])[facility] [place] (SBHLAB)[address] Hemoglobin (Bld) [Mass/Vol] 13.8 g/dL Normal 13.0-18.0 [facility] Comment on above: Performed By: #### L [id number] ####Fire Operations Forester: MELI CARRILLO ([id number])[facility] CENTEREstefania VILLASENORTSAILE HEALTH CENTERShannon (SBHLAB)[address] IMMATURE GRANS % 0.7 % Normal 0.0-2.0 [facility] Comment on above: Performed By: #### L [id number] ####Fire Operations Forester: MELI CARRILLO ([phone])[facility] (SBHLAB)[address] IMMATURE GRANS ABSOLUTE 0.1 10*3/uL High <0.1 [facility] Comment on above: Performed By: #### L [id number] ####Fire Operations Forester: MELI CARRILLO ([id number])[facility] (SB[facility])[address] Lymphocytes (Bld) [#/Vol] 0.8 10*3/uL Low 1.0-4.3 [facility] Comment on above: Performed By: #### L [id number] ####Fire Operations Forester: MELI CARRILLO ([phone])[facility]ENTERE[facility]efania [place] (SBHLAB)[address] Lymphocytes/100 WBC (Bld) 8.8 % Low 15.0-45.0 [facility] Comment on above: Performed By: #### L [id number] ####Fire Operations Forester: MELI CARRILLO ([phone])[facility]ENTEREstefania [facility] (SBHLAB)[address] MCH (RBC) [Entitic mass] 31.3 pg Normal 26.0-34.0 [facility] Comment on above: Performed By: #### L [id number] ####Fire Operations Forester: MELI CARRILLO ([id number])[facility] (SBHLAB)[address] MCHC 32.8 % Normal 30.5-36.0 [facility] Comment on above: Performed By: #### L [id number] ####Fire Operations Forester: MELI CARRILLO ([phone])[facility] [place] (SBHLAB)[address] MCV (RBC) [Entitic vol] 95.5 fL Normal 77.0-99.0 [facility] Comment on above: Performed By: #### L [id number] ####Fire Operations Forester: MELI CARRILLO ([id number])[facility] [place] (SBHLAB)[address] Monocytes (Bld) [#/Vol] 0.6 10*3/uL Normal 0.0-0.9 [facility] Comment on above: Performed By: #### L [id number] ####Fire Operations Forester: MELI CARRILLO ([phone])[facility] [place] (SBHLAB)[address] Monocytes/100 WBC (Bld) 6.8 % Normal 5.0-13.0 [facility] Comment on above: Performed By: #### L [id number] ####Fire Operations Forester: MELI CARRILLO ([id number])[facility] [place] (SBHLAB)[address] NEUTROPHILS ABSOLUTE 7.4 10*3/uL Normal 1.8-7.5 [facility] Comment on above: Performed By: #### L [id number] ####Fire Operations Forester: MELI CARRILLO ([phone])[facility] [place] (SBHLAB)[address] [place] [address] [place] Neutrophils/100 WBC (Bld) 80.6 % Normal 38.0-82.0 [facility] Comment on above: Performed By: #### L [id number] ####Fire Operations Forester: MELI CARRILLO ([phone])[facility] ([facility])[address] [place] [address] [place] NRBC 0.0 /100 WBCs Normal 0.0-2.0 [facility] Comment on above: Performed By: #### L [id number] ####Fire Operations Forester: MELI CARRILLO ([phone])[facility] (SBHLAB)[address] Platelet mean volume (Bld) [Entitic vol] 10.6 fL Normal 9.0-12.7 [facility] Comment on above: Performed By: #### L [id number] ####Fire Operations Forester: MELI CARRILLO ([phone])[facility] [place] (SBHLAB)[address] Platelets (Bld) [#/Vol] 162 10*3/uL Normal 140-440 [facility] Comment on above: Performed By: #### L [id number] ####Fire Operations Forester: MELI CARRILLO ([phone])[facility] [place] (SBHLAB)[address] RBC (Bld) [#/Vol] 4.41 10*6/uL Normal 4.40-5.90 [facility] Comment on above: Performed By: #### L [id number] ####Fire Operations Forester: MELI CARRILLO ([phone])[facility] [place] (SBHLAB)[address] WBC (Bld) [#/Vol] 9.2 10*3/uL Normal 3.6-10.7 [facility] Comment on above: Performed By: #### L [id number] ####Fire Operations Forester: MELI CARRILLO ([phone])[facility] [place] (SBHLAB)[address] COMPREHENSIVE METABOLIC PANE Maciel 08-21-2024 Albumin [Mass/Vol] 2.9 g/dL Low 3.4-4.8 [facility] Comment on above: Performed By: #### L [id number], LAB17 ####Fire Operations Forester: MELI CARRILLO ([phone])[facility] [place] (SBHLAB)[address] ALP [Catalytic activity/Vol] 382 U/L High 40-150 [facility] Comment on above: Performed By: #### L [id number], LAB17 ####Fire Operations Forester: MELI CARRILLO ([id number])[facility] [place] (SBHLAB)[address] ALT [Catalytic activity/Vol] 21 U/L Normal <40 [facility] Comment on above: Performed By: #### L AB103, LAB17 ####Fire Operations Forester: MELI CARRILLO ([phone])[facility] [place] (SBHLAB)[address] Anion gap [Moles/Vol] 14 mmol/L High 3-13 [facility] Comment on above: Performed By: #### L AB103, LAB17 ####Fire Operations Forester: MELI CARRILLO ([phone])[facility] [place] (SBHLAB)[address] AST [Catalytic activity/Vol] 61 U/L High <34 [facility] Comment on above: Performed By: #### L AB103, LAB17 ####Fire Operations Forester: MELI CARRILLO ([phone])[facility] [place] (SBHLAB)[address] Bilirubin [Mass/Vol] 0.8 mg/dL Normal <1.2 [facility] Comment on above: Performed By: #### L AB103, LAB17 ####Fire Operations Forester: MELI CARRILLO ([phone])[facility] [place] (SBHLAB)155 [place] [address] [place] Calcium [Mass/Vol] 8.5 mg/dL Low 8.8-10.0 [facility] Comment on above: Performed By: #### L AB103, LAB17 ####Fire Operations Forester: MELI CARRILLO ([phone])[facility] [place] (SBHLAB)155 [place] [address] [place] Chloride [Moles/Vol] 98 mmol/L Normal 98-107 [facility] Comment on above: Performed By: #### L AB103, LAB17 ####Fire Operations Forester: MELI CARRILLO ([phone])[facility] [place] (SBHLAB)[address] CO2 [Moles/Vol] 29 mmol/L Normal 23-31 [facility] Comment on above: Performed By: #### L AB103, LAB17 ####Fire Operations Forester: MELI CARRILLO ([id number])[facility] (SBHLAB)[address] Creatinine [Mass/Vol] 0.89 mg/dL Normal 0.72-1.25 [facility] Comment on above: Performed By: #### L AB103, LAB17 ####Fire Operations Forester: MELI CARRILLO ([phone])[facility] (SBHLAB)[address] GLOMERULAR FILTRATION RATE ML/MIN/1.73 SQ M.PREDICTED >90.0 Normal >60.0 [facility] Comment on above: Result Comment: Calc ulation based on the Chronic Kidney Disease Epidemiology Collaboration (CKD-EPI) equation refit without adjustment for race Performed By: #### L AB103, LAB17 ####Fire Operations Forester: MELI CARRILLO ([phone])[facility] (SBHLAB)[address] Glucose [Mass/Vol] 143 mg/dL High 82-115 [facility] Comment on above: Performed By: #### L AB103, LAB17 ####Fire Operations Forester: MELI CARRILLO ([id number])[facility] (SBHLAB)155 [place] [address] [place] Potassium [Moles/Vol] 3.3 mmol/L Low 3.5-5.1 [facility] Comment on above: Result Comment: [facility] potassium values may be up to 0.5 mmol/L lower than serum values. Performed By: #### L AB103, LAB17 ####Fire Operations Forester: MELI CARRILLO ([phone])[facility] (SBHLAB)[address] Protein [Mass/Vol] 6.8 g/dL Normal 6.4-8.3 [facility] Comment on above: Performed By: #### L AB103, LAB17 ####Fire Operations Forester: MELI LEEZoniaMASSIEL ([phone])[facility] (SBHLAB)[address] Sodium [Moles/Vol] 141 mmol/L Normal 136-145 [facility] Comment on above: Performed By: #### L AB103, LAB17 ####Fire Operations Forester: MELI LEECALDERON ([id number])[facility] (SBHLAB)[address] Urea nitrogen [Mass/Vol] 14 mg/dL Normal 9-23 [facility] Comment on above: Performed By: #### L 103, LAB17 ####Fire Operations Forester: MELI CARRILLO ([id number])[facility] (SBHLAB)[address] Comprehensive metabolic 1998 panelon 08-21-2024 Albumin [Mass/Vol] 2.9 g/dL Low 3.4 - 4.8 g/dL [facility] ALP [Catalytic activity/Vol] 382 U/L High 40 - 150 U/L [facility] ALT [Catalytic activity/Vol] 21 [facility] Anion gap [Moles/Vol] 14 mmol/L High 3 - 13 mmol/L [facility] AST [Catalytic activity/Vol] 61 U/L High [facility] - 34 U/L [facility] Bilirubin [Mass/Vol] 0.8 mg/dL NINF - 1.2 mg/dL [facility] Calcium [Mass/Vol] 8.5 mg/dL Low 8.8 - 10. 0 mg/dL [facility] Chloride [Moles/Vol] 98 mmol/L 98 - 10 7 mmol/L [facility] CO2 [Moles/Vol] 29 mmol/L 23 - 31 mmol/L [facility] Creatinine [Mass/Vol] 0.89 mg/dL 0.72 - 1.25 mg/dL [facility] GFR/1.73 sq M.predicted (S/P/Bld) [Vol rate/Area] - PINF [facility] Comment on above: Calculation based on the Chronic Kidney Disease Epidemiology Collaboration (CKD-EPI) equation refit without adjustment for race Glucose [Mass/Vol] 143 mg/dL High 82 - 115 mg/dL [facility] Interpretation and review of laboratory results Abnormal [facility] Potassium [Moles/Vol] 3.3 mmol/L Low 3.5 - 5.1 mmol/L [facility] Comment on above: Plasma potassium natalie ues may be up to 0.5 mmol/L lower than serum values. Protein [Mass/Vol] 6.8 g/dL 6.4 - 8.3 g/dL [facility] Sodium [Moles/Vol] 141 mmol/L 136 - 145 mmol/L [facility] Urea nitrogen [Mass/Vol] 14 mg/dL 9 - 23 mg/dL [facility] ED Nursing Noteon 08-21-2024 ED Nursing Note Guided back Normal [facility] ED Nursing Note Pt took off cpap minh und 0300, nasal cannula applied with 3L. Pt repeadly taking off the nasal cannula, notified. Normal [facility] Laboratory - Chemistry and C hemistry - challengeon 08-21-2024 Magnesium [Mass/Vol] 1.5 mg/dL Low 1.6 - 2 .6 mg/dL [facility] MAGNESIUMon 08-21-2024 Magnesium [Mass/Vol] 1.5 mg/dL Low 1.6-2.6 [facility] Comment on above: Result Comment: ANUPAM Alonso COMMENTS:Higher values can be expected in females during menses. Performed By: #### L AB103, LAB17 ####Fire Operations Forester: MELI CARRILLO ([phone])[facility] ([facility])[address] [place] [address] Magnesium [Mass/Vol]on 08-21 Interpretation and review of laboratory results Abnormal [facility] Higher values can be expected in females during menses. [facility] Nursing Noteon 08-21-2024 Nursing Note Normal [facility] Nursing Note Normal [facility] Progress Noteon 08-21-2024 Progress Note Normal [facility] Progress Note Normal [facility] AFP TUMOR MARKER (BKR QUEST) on 08-20-2024 QUEST ALPHA FETOPROTEIN, TUMOR MARKER 1.7 ng/mL Normal <6.1 [facility] Comment on above: Result Comment: This test was performed using the Josephine Coulterchemiluminescent method. Values obtained fromdifferent assay methods cannot be usedinterchangeably. AFP levels, regardless of value,should not be interpreted as absolute evidence ofthe presence or absence of disease.Test performed by [employer] [facility] [address] [place] [address] Fyicirp Director: Blanca Freed MD,PHD,MBATest Reported by [facility]SuiteSelect [facility],[employer] [facility],[address] [place] [id number] Cagle M.D., Ph.D., Director of [phone], [facility] [id number] Performed By: #### L [id number] ####[employer] (AMDBEAKER)[address] [place] [address] [facility] BLOOD GAS, VENOUSon 08-20-20 24 Base excess Calc (BldV) [Moles/Vol] 0.3 mmol/L Normal -3.0-3.0 [facility] Comment on above: Performed By: #### L [id number] ####Fire Operations Forester: MELI CARRILLO ([phone])[facility] ([facility])[address] [place] [address] CO2 [Moles/Vol] 28.0 mmol/L Normal 23.0-30.0 [facility] Comment on above: Performed By: #### L AB79 ####Fire Operations Forester: MELI CARRILLO ([id number])[facility] (SBHLAB)155 [place] [address] [place] HCO3 (Bld) [Moles/Vol] 26.5 mmol/L Normal 21.0-30.0 [facility] Comment on above: Performed By: #### L AB79 ####Fire Operations Forester: MELI CARRILLO ([id number])[facility] (SBHLAB)155 [place] [address] [place] Hemoglobin (Bld) [Mass/Vol] 14.3 g/dL Normal Screen only [facility] Comment on above: Performed By: #### L AB79 ####Fire Operations Forester: MELI CARRILLO ([id number])[facility] [place] (SBHLAB)[address] OXYGEN (MM HG) IN VENOUS BLOOD 28.5 mm Hg Normal [facility] Comment on above: Performed By: #### L AB79 ####Fire Operations Forester: MELI CARRILLO ([phone])[facility] [place] (SBHLAB)[address] OXYGEN SATURATION (%) IN VENOUS BLOOD 51.1 % Normal [facility] Comment on above: Performed By: #### L AB79 ####Fire Operations Forester: MELI CARRILLO ([phone])[facility] [place] (SBHLAB)[address] PCO2, TOSHIA 48.6 mm Hg Normal 38.0-56.0 [facility] Comment on above: Performed By: #### L [id number] ####Fire Operations Forester: MELI CARRILLO ([id number])[facility] (SBHLAB)[address] PH VENOUS 7.354 Normal 7.320-7.420 [facility] Comment on above: Performed By: #### L [id number] ####Fire Operations Forester: MELI CARRILLO ([id number])[facility] (SBHLAB)[address] SOURCE OF OXYGEN 2L Normal [facility] Comment on above: Result Comment: ANUPAM R COMMENTS:Assessment of oxygenation is best done with an arterial blood gas determination. Reference ranges for pO2, bicarbonate, and base excess are for mixed venous blood. Specimens drawn from a peripheral vein will often have higher values. Performed By: #### L [id number] ####Fire Operations Forester: MELI CARRILLO ([id number])[facility] [place] (SBHLAB)[address] CBC W Auto Differential pane l (Bld)on 08-20-2024 Basophils (Bld) [#/Vol] 0.1 10*3/uL 0.0 - 0.2 10*3/uL [facility] Basophils/100 WBC (Bld) 0.9 % 0.0 - 2.0 % [facility] Eosinophils (Bld) [#/Vol] 0.1 10*3/uL 0.0 - 0.5 10*3/uL [facility] Eosinophils/100 WBC (Bld) 1.9 % 0.0 - 6.0 % [facility] Erythrocyte distribution width (RBC) [Ratio] 14.7 % 11.5 - 15.0 % [facility] Hematocrit (Bld) [Volume fraction] 38.5 % Low 40.0 - 52.0 % [facility] Hemoglobin (Bld) [Mass/Vol] 13 g/dL 13.0 - 18.0 g/dL [facility] Immature granulocytes (Bld) [#/Vol] 0 10*3/uL NINF - 0.1 10*3/uL [facility] Immature granulocytes/100 WBC (Bld) 0.4 % 0.0 - 2.0 % [facility] Interpretation and review of laboratory results Abnormal [facility] Lymphocytes (Bld) [#/Vol] 0.9 10*3/uL Low 1.0 - 4.3 10*3/uL [facility] Lymphocytes/100 WBC (Bld) 11.4 % Low 15.0 - 45.0 % [facility] MCH (RBC) [Entitic mass] 31.7 pg 26.0 - 34.0 pg [facility] MCHC (RBC) [Mass/Vol] 33.8 % 30.5 - 36.0 % [facility] MCV (RBC) [Entitic vol] 93.9 fL 77.0 - 99.0 fL [facility] Monocytes (Bld) [#/Vol] 0.9 10*3/uL 0.0 - 0.9 10*3/uL [facility] Monocytes/100 WBC (Bld) 12.1 % 5.0 - 13.0 % [facility] Neutrophils (Bld) [#/Vol] 5.5 10*3/uL 1.8 - 7.5 10*3/uL [facility] Neutrophils/100 WBC (Bld) 73.3 % 38.0 - 82.0 % [facility] Nucleated RBC/100 WBC (Bld) [Ratio] 0 % [facility] Platelet mean volume (Bld) [Entitic vol] 11.6 fL 9.0 - 12.7 fL [facility] Platelets (Bld) [#/Vol] 196 10*3/uL 140 - 440 10*3/uL [facility] RBC (Bld) [#/Vol] 4.1 10*6/uL Low 4.40 - 5.9 0 10*6/uL [facility] WBC (Bld) [#/Vol] 7.5 10*3/uL 3.6 - 10.7 10*3/uL [facility] CBC WITH AUTO DIFFERENTIALon 08-20-2024 Basophils (Bld) [#/Vol] 0.1 10*3/uL Normal 0.0-0.2 [facility] Comment on above: Performed By: #### L [id number] ####Fire Operations Forester: MELI CARRILLO ([id number])[facility] (SBAB)[address] [place] [address] Basophils/100 WBC (Bld) 0.9 % Normal 0.0-2.0 S [facility] Comment on above: Performed By: #### L [id number] ####Fire Operations Forester: MELI CARRILLO ([id number])[facility] ([facility])[address] [place] [address] Eosinophils (Bld) [#/Vol] 0.1 10*3/uL Normal 0.0-0.5 [facility] Comment on above: Performed By: #### L [id number] ####Fire Operations Forester: MELI CARRILLO ([phone])[facility] (SBHLAB)[address] Eosinophils/100 WBC (Bld) 1.9 % Normal 0.0-6.0 [facility] Comment on above: Performed By: #### L [id number] ####Fire Operations Forester: MELI CARRILLO ([id number])[facility] (SBAB)[address] Erythrocyte distribution width (RBC) [Ratio] 14.7 % Normal 11.5-15.0 [facility] Comment on above: Performed By: #### L [id number] ####Fire Operations Forester: MELI LEEZoniaMASSIEL ([id number])[facility] [place] (SBHLAB)[address] Hematocrit (Bld) [Volume fraction] 38.5 % Low 40.0-52.0 [facility] Comment on above: Performed By: #### L [id number] ####Fire Operations Forester: MELI GERARDO ([phone])[facility] [place] (SBAB)[address] Hemoglobin (Bld) [Mass/Vol] 13.0 g/dL Normal 13.0-18.0 [facility] Comment on above: Performed By: #### L [id number] ####Fire Operations Forester: MELI PEREZMASSIEL ([id number])[facility] [place] (SBHLAB)[address] IMMATURE GRANS % 0.4 % Normal 0.0-2.0 [facility] Comment on above: Performed By: #### L [id number] ####Fire Operations Forester: MELI GERARDO ([phone])[facility] [place] ([facility])[address] IMMATURE GRANS ABSOLUTE 0.0 10*3/uL Normal <0.1 [facility] Comment on above: Performed By: #### L [id number] ####Fire Operations Forester: MELI PEREZMASSIEL ([id number])[facility] [place] (SBHLAB)[address] Lymphocytes (Bld) [#/Vol] 0.9 10*3/uL Low 1.0-4.3 [facility] Comment on above: Performed By: #### L [id number] ####Fire Operations Forester: MELI PEREZMASSIEL ([id number])[facility] [place] (SBHLAB)[address] [place] [address] [place] Lymphocytes/100 WBC (Bld) 11.4 % Low 15.0-45.0 [facility] Comment on above: Performed By: #### L [id number] ####Fire Operations Forester: MELI CARRILLO ([phone])[facility] [place] (SBHLAB)[address] MCH (RBC) [Entitic mass] 31.7 pg Normal 26.0-34.0 [facility] Comment on above: Performed By: #### L [id number] ####Fire Operations Forester: MELI CARRILLO ([id number])[facility] [place] (SBHLAB)[address] MCHC 33.8 % Normal 30.5-36.0 [facility] Comment on above: Performed By: #### L [id number] ####Fire Operations Forester: MELI CARRILLO ([id number])[facility] [place] (SBHLAB)[address] [place] [address] MCV (RBC) [Entitic vol] 93.9 fL Normal 77.0-99.0 S [facility] Comment on above: Performed By: #### L [id number] ####Fire Operations Forester: MELI CARRILLO ([phone])[facility] [place] (SBHLAB)[address] [place] [address] Monocytes (Bld) [#/Vol] 0.9 10*3/uL Normal 0.0-0.9 [facility] Comment on above: Performed By: #### L [id number] ####Fire Operations Forester: MELI CARRILLO ([phone])[facility] [place] (SBHLAB)[address] [place] [address] [place] Monocytes/100 WBC (Bld) 12.1 % Normal 5.0-13.0 S [facility] Comment on above: Performed By: #### L [id number] ####Fire Operations Forester: MELI CARRILLO ([id number])[facility] [place] (SBHLAB)[address] NEUTROPHILS ABSOLUTE 5.5 10*3/uL Normal 1.8-7.5 [facility] Comment on above: Performed By: #### L [id number] ####Fire Operations Forester: MELI CARRILLO ([id number])[facility] [place] (SBHLAB)[address] Neutrophils/100 WBC (Bld) 73.3 % Normal 38.0-82.0 [facility] Comment on above: Performed By: #### L [id number] ####Fire Operations Forester: MELI CARRILLO ([phone])[facility] [place] (SBHLAB)[address] NRBC 0.0 /100 WBCs Normal 0.0-2.0 [facility] Comment on above: Performed By: #### L [id number] ####Fire Operations Forester: MELI CARRILLO ([phone])[facility] [place] (SBHLAB)[address] Platelet mean volume (Bld) [Entitic vol] 11.6 fL Normal 9.0-12.7 [facility] Comment on above: Performed By: #### L [id number] ####Fire Operations Forester: MELI CARRILLO ([phone])[facility] [place] (SBHLAB)[address] Platelets (Bld) [#/Vol] 196 10*3/uL Normal 140-440 [facility] Comment on above: Performed By: #### L [id number] ####Fire Operations Forester: MELI CARRLILO ([id number])[facility] [place] (SBHLAB)[address] RBC (Bld) [#/Vol] 4.10 10*6/uL Low 4.40-5.90 [facility] Comment on above: Performed By: #### L [id number] ####Fire Operations Forester: MELI CARRILLO ([id number])[facility] [place] (SBHLAB)[address] [place] [address] [place] WBC (Bld) [#/Vol] 7.5 10*3/uL Normal 3.6-10.7 [facility] Comment on above: Performed By: #### L [id number] ####Fire Operations Forester: MELI CARRILLO ([id number])[facility] [place] (SBHLAB)[address] COMPLETE URINALYSISon 2023 BACTERIA (#/HPF) IN URINE Few Abnormal Negative [facility] Comment on above: Performed By: #### L [id number] ####Fire Operations Forester: MELI CARRILLO ([phone])[facility] [place] (SBHLAB)[address] BILIRUBIN, TOTAL PRESENCE IN URINE Negative Normal Negative [facility] Comment on above: Performed By: #### L [id number] ####Fire Operations Forester: MELI CARRILLO ([id number])[facility] [place] (SBHLAB)[address] Clarity (U) Clear Normal Clear [facility] Comment on above: Performed By: #### L [id number] ####Fire Operations Forester: MELI CARRILLO ([phone])[facility] [place] (SBHLAB)[address] [place] [address] Color (U) Yellow Normal Lt. Yellow [facility] Comment on above: Performed By: #### L [id number] ####Fire Operations Forester: MELI CARRILLO ([id number])[facility] [place] (SBHLAB)[address] GLUCOSE (MG/DL) IN URINE Normal Normal Normal (<70) [facility] Comment on above: Performed By: #### L [id number] ####Fire Operations Forester: MELI CARRILLO ([id number])[facility] [place] (SBHLAB)[address] HEMOGLOBIN PRESENCE IN URINE Negative Normal Negative [facility] Comment on above: Performed By: #### L [id number] ####Fire Operations Forester: MELI CARRILLO ([id number])[facility] [place] (SBHLAB)[address] HYALINE CASTS (#/LPF) IN URINE SEDIMENT BY MICROSCOPY 3-5 Abnormal Negative [facility] Comment on above: Performed By: #### L [id number] ####Fire Operations Forester: MELI CARRILLO ([id number])[facility]ENTERE[facility]efania [place] ([facility])[address] Ketones Ql (U) Negative Normal Negative [facility] Comment on above: Performed By: #### L [id number] ####Fire Operations Forester: MELI CARRILLO ([phone])[facility] ([facility])[address] LEUKOCYTE ESTERASE PRESENCE IN URINE BY TEST STRIP Negative Normal Negative [facility] Comment on above: Performed By: #### L [id number] ####Fire Operations Forester: MELI CARRILLO ([phone])[facility] ([facility])[address] [place] [address] [place] MUCUS (#/LPF) IN URINE SEDIMENT Few Normal Negative [facility] Comment on above: Performed By: #### L [id number] ####Fire Operations Forester: MELI CARRILLO ([phone])[facility] ([facility])[address] NITRITE PRESENCE IN URINE Positive Abnormal Negative [facility] Comment on above: Performed By: #### L [id number] ####Fire Operations Forester: MELI CARRILLO ([phone])[facility] ([facility])[address] pH (U) 6.0 [pH] Normal 5.0-8.0 [facility] Comment on above: Performed By: #### L [id number] ####Fire Operations Forester: MELI CARRILLO ([phone])[facility] ([facility])[address] Protein (U) [Mass/Vol] 10 mg/dL Abnormal Negative [facility] Comment on above: Performed By: #### L [id number] ####Fire Operations Forester: MELI CARRILLO ([phone])[facility] ([facility])[address] RBC (#/HPF) IN URINE SEDIMENT 0-2 Normal 0-2 [facility] Comment on above: Performed By: #### L [id number] ####Fire Operations Forester: MELI CARRILLO ([phone])[facility] ([facility])[address] Specific gravity (U) [Rel density] 1.009 Normal 1.005-1.030 [facility] Comment on above: Performed By: #### L [id number] ####Fire Operations Forester: MELI PEREZMASSIEL ([phone])[facility] [facility] ([facility])[address] SQUAMOUS EPITHELIAL CELLS (#/HPF) IN URINE SEDIMENT Negative Normal 3-5 [facility] Comment on above: Performed By: #### L [id number] ####Fire Operations Forester: MELI CARRILLO ([phone])[facility] [place] (SB[facility])[address] UROBILINOGEN (MG/DL) IN URINE Normal Normal Normal (0-1) [facility] Comment on above: Performed By: #### L AB347 ####Fire Operations Forester: MELI CARRILLO ([phone])[facility] ([facility])[address] WBC (LEUKOCYTE) (#/HPF) IN URINE SEDIMENT 3-5 Normal 0-5 [facility] Comment on above: Performed By: #### L AB347 ####Fire Operations Forester: MELI CARRILLO ([phone])[facility] ([facility])[address] COMPREHENSIVE METABOLIC PANE Maciel 08-20-2024 Albumin [Mass/Vol] 2.8 g/dL Low 3.4-4.8 [facility] Comment on above: Performed By: #### L AB17, [id number], TOT768, LAB85 ####Fire Operations Forester: MELIIVELISSE CARRILLO ([phone])[facility] [place] (SB[facility])[address] ALP [Catalytic activity/Vol] 368 U/L High 40-150 [facility] Comment on above: Performed By: #### L AB17, VDF198, ULV429, LAB85 ####Fire Operations Forester: MELI GERARDO ([phone])[facility] ([facility])[address] ALT [Catalytic activity/Vol] 22 U/L Normal <40 [facility] Comment on above: Performed By: #### L AB17, FNL864, OQJ323, LAB85 ####Fire Operations Forester: MELI GERARDO ([phone])[facility] (SBHLAB)[address] Anion gap [Moles/Vol] 10 mmol/L Normal 3-13 [facility] Comment on above: Performed By: #### L AB17, SUE296, GCL276, LAB85 ####Fire Operations Forester: MELI GERARDO ([phone])[facility] (SBHLAB)[address] AST [Catalytic activity/Vol] 75 U/L High <34 [facility] Comment on above: Result Comment: TCSi gnificant interference from hemolysis. Result integrity compromised. Interpret with caution. Performed By: #### L AB17, APG516, KBY996, LAB85 ####Fire Operations Forester: MELI LEECALDERON ([phone])[facility] [place] ([facility])[address] Bilirubin [Mass/Vol] 0.7 mg/dL Normal <1.2 [facility] Comment on above: Performed By: #### L AB17, YJB930, WCD466, LAB85 ####Fire Operations Forester: MELI LEEZoniaMASSIEL ([phone])[facility] (SBHLAB)[address] Calcium [Mass/Vol] 8.4 mg/dL Low 8.8-10.0 [facility] Comment on above: Performed By: #### L AB17, KXQ147, YAB258, LAB85 ####Fire Operations Forester: MELI CARRILLO ([phone])[facility] Chloride [Moles/Vol] 103 mmol/L Normal 98-107 [facility] Comment on above: Performed By: #### L AB17, VDR347, YWT366, LAB85 ####Fire Operations Forester: MELI CARRILLO ([phone])[facility] CO2 [Moles/Vol] 25 mmol/L Normal 23-31 [facility] Comment on above: Performed By: #### L AB17, QHQ924, EJC728, LAB85 ####Fire Operations Forester: MELI CARRILLO ([phone])[facility])[address] Creatinine [Mass/Vol] 0.82 mg/dL Normal 0.72-1.25 [facility] Comment on above: Performed By: #### L AB17, SNR330, COK270, LAB85 ####Fire Operations Forester: MELI CARRILLO ([phone])[facility] ([facility])[address] GLOMERULAR FILTRATION RATE ML/MIN/1.73 SQ M.PREDICTED >90.0 Normal >60.0 [facility] Comment on above: Result Comment: Calc ulation based on the Chronic Kidney Disease Epidemiology Collaboration (CKD-EPI) equation refit without adjustment for race Performed By: #### L AB17, SVJ868, PKG894, LAB85 ####Fire Operations Forester: MELI CARRILLO ([id number])[facility] Glucose [Mass/Vol] 83 mg/dL Normal 82-115 [facility] Comment on above: Performed By: #### L AB17, IWV060, VSP121, LAB85 ####Fire Operations Forester: MELI GERARDO ([phone])[facility] (SBHLAB)[address] Potassium [Moles/Vol] 4.2 mmol/L Normal 3.5-5.1 [facility] Comment on above: Result Comment: TCSi gnificant interference from hemolysis. Result integrity compromised. Interpret with caution. Performed By: #### L AB17, XVI812, DKV301, LAB85 ####Fire Operations Forester: MELI LEECALDERON ([phone])[facility] (SBHLAB)[address] Protein [Mass/Vol] 6.7 g/dL Normal 6.4-8.3 [facility] Comment on above: Result Comment: TCPo tential interference from hemolysis Performed By: #### L AB17, YZC516, VEA343, LAB85 ####Fire Operations Forester: MELI CARRILLO ([phone])[facility] (SB[facility]AB)[address] Sodium [Moles/Vol] 138 mmol/L Normal 136-145 [facility] Comment on above: Performed By: #### L AB17, UZU026, QLJ818, LAB85 ####Fire Operations Forester: MELI CARRILLO ([phone])[facility] (SB[facility])[address] Urea nitrogen [Mass/Vol] 14 mg/dL Normal 9-23 [facility] Comment on above: Performed By: #### L AB17, YMW452, ZUJ468, LAB85 ####Fire Operations Forester: MELI LEECALDERON ([phone])[facility] (SB[facility]AB)[address] HEAD WO IV CONTRASTon CT HEAD WO IV CONTRAST Normal [facility] CT Head WO contraston 2023 No acute findings. Report Dictated on Electronically Signed By: Paul Leiva MD Electronically Signed Date/Time: 08/20/2024 5:00 PM [facility] Patient Name: KRYSTINA LYNCH : 1955 Exam Date/Time: 08/20/2024 15:32 Procedure: CT HEAD WO IV CONTRAST Ordering Provider: GUERIN MICHAEL Reason For Exam: ams CT head without contrast History: Mental status changes Technique: 3 mm axial images through the head without IV contrast Dose reduction was employed with automated exposure control. There is no evidence of intracranial hemorrhage, extra-axial fluid collection, hydrocephalus, or acute infarct. Bifrontal atrophy. No evidence of a mass of mass affect. The visualized portions of the paranasal sinuses and the mastoid air cells are clear. [facility] Paul Leiva MD - 08/20/2024 Patient Name: KRYSTINA MARKHAM : 1955 Exam Date/Time: 08/20/2024 15:32 Procedure: CT HEAD WO IV CONTRAST Ordering Provider: GUERIN MICHAEL Reason For Exam: ams CT head without contrast History: Mental status changes Technique: 3 mm axial images through the head without IV contrast Dose reduction was employed with automated exposure control. There is no evidence of intracranial hemorrhage, extra-axial fluid collection, hydrocephalus, or acute infarct. Bifrontal atrophy. No evidence of a mass of mass affect. The visualized portions of the paranasal sinuses and the mastoid air cells are clear. IMPRESSION: No acute findings. Report Dictated on Electronically Signed By: Paul Leiva MD Electronically Signed Date/Time: 08/20/2024 5:00 PM EST [facility] Radiology Study observation (narrative) [facility] Comprehensive metabolic 1998 panelon 08-20-2024 Albumin [Mass/Vol] 2.8 g/dL Low 3.4 - 4.8 g/dL [facility] ALP [Catalytic activity/Vol] 368 U/L High 40 - 150 U/L [facility] ALT [Catalytic activity/Vol] 22 U/L NINF - 40 U/L [facility] Anion gap [Moles/Vol] 10 mmol/L 3 - 13 mmol/L [facility] AST [Catalytic activity/Vol] 75 U/L High NINF - 34 U/L [facility] Comment on above: TC Significant interference from hemolysis. Result integrity compromised. Interpret with caution. Bilirubin [Mass/Vol] 0.7 mg/dL NINF - 1.2 mg/dL [facility] Calcium [Mass/Vol] 8.4 mg/dL Low 8.8 - 10. 0 mg/dL [facility] Chloride [Moles/Vol] 103 mmol/L 98 - 10 7 mmol/L [facility] CO2 [Moles/Vol] 25 mmol/L 23 - 31 mmol/L [facility] Creatinine [Mass/Vol] 0.82 mg/dL 0.72 - 1.25 mg/dL [facility] GFR/1.73 sq M.predicted (S/P/Bld) [Vol rate/Area] - PINF [facility] Comment on above: Calculation based on the Chronic Kidney Disease Epidemiology Collaboration (CKD-EPI) equation refit without adjustment for race Glucose [Mass/Vol] 83 mg/dL 82 - 115 mg/dL [facility] Interpretation and review of laboratory results Abnormal [facility] Potassium [Moles/Vol] 4.2 mmol/L 3.5 - 5.1 mmol/L [facility] Comment on above: TC Significant interference from hemolysis. Result integrity compromised. Interpret with caution. Protein [Mass/Vol] 6.7 g/dL 6.4 - 8.3 g/dL [facility] Comment on above: TC Potential interference from hemolysis Sodium [Moles/Vol] 138 mmol/L 136 - 145 mmol/L [facility] Urea nitrogen [Mass/Vol] 14 mg/dL 9 - 23 mg/dL [facility] ED Nursing Noteon 08-20-2024 ED Nursing Note Pt's BP WNL ok to gi ve Metoprolol per RES Dr. Gonzalez. Normal [facility] GAMMA GTon 08-20-2024 Gamma glutamyl transferase [Catalytic activity/Vol] 98 U/L High <55 [facility] Comment on above: Performed By: #### L AB17, EJI253, NHF558, LAB85 ####Fire Operations Forester: MELI CARRILLO ([phone])[facility] ([facility] [place] [address] Gamma glutamyl transferase [ Catalytic activity/Vol]on 08-20-2024 Interpretation and review of laboratory results Abnormal [facility] LEGIONELLA AND STREPTOCOCCUS URINE ANTIGENon 08-20-2024 LEGIONELLA AND STREPTOCOCCUS URINE ANTIGEN Normal [facility] Comment on above: Performed By: #### L [id number] ####Fire Operations Forester: ALEIDA BAEZA ([phone])[facility] ([facility])[address] [place] [address] Laboratory - Chemistry and C hemistry - challengeon 08-20-2024 Gamma glutamyl transferase [Catalytic activity/Vol] 98 U/L High NINF - 55 U/L [facility] Base excess Calc (BldV) [Moles/Vol] 0.3 mmol/L -3.0 - 3.0 mmol/L [facility] CO2 (BldV) [Partial pressure] 48.6 mm[Hg] [facility] CO2 [Moles/Vol] 28 mmol/L 23.0 - 30.0 mmol/L [facility] HCO3 (Bld) [Moles/Vol] 26.5 mmol/L 21.0 - 30.0 mmol/L [facility] Oxygen (BldV) [Partial pressure] 28.5 mm[Hg] mm Hg [facility] pH (BldV) 7.354 [pH] 7.320 - 7.420 [facility] Magnesium [Mass/Vol] 1.6 mg/dL 1.6 - 2 .6 mg/dL [facility] Laboratory - Hematology and Cell countson 08-20-2024 Hemoglobin (Bld) [Mass/Vol] 14.3 g/dL Screen only [facility] MAGNESIUMon 08-20-2024 Magnesium [Mass/Vol] 1.6 mg/dL Normal 1.6-2.6 [facility] Comment on above: Result Comment: ANUPAM Alonso COMMENTS:Higher values can be expected in females during menses. Performed By: #### L AB17, HNZ275, IFP266, LAB85 ####Fire Operations Forester: MELI CARRILLO ([phone])[facility] (SBHLAB)[address] [place] [address] Magnesium [Mass/Vol]on 08-20 Higher values can be expected in females during menses. [facility] No Panel InformationOrdered By: Juliane Frazier on 08-20-2024 Interpretation and review of laboratory results Abnormal [facility] Legionella pneumophila Ag Not detected Not Detected [facility] Streptococcus pneumoniae Ag Detected Abnormal Not Detected [facility] Methodology: Lateral flow enzyme immunoassay This assay is approved for detection of antigens to Streptococcus pneumoniae and Legionella pneumophila serogroup 1; however, other L. pneumophila serogroups may also be detected. [facility] No Panel Informationon 08-20 Source Of Oxygen 2L [facility] Assessment of oxygenation is best done with an arterial blood gas determination. Reference ranges for pO2, bicarbonate, and base excess are for mixed venous blood. Specimens drawn from a peripheral vein will often have higher values. [facility] Extra Tube Hold for add-ons. [facility] Comment on above: Auto resulted. [facility] Interpretation and review of laboratory results Normal [facility] Nursing Noteon 08-20-2024 Nursing Note Normal [facility] PHOSPHORUSon 08-20-2024 Phosphate [Mass/Vol] 2.8 mg/dL Normal 2.3-4.7 [facility] Comment on above: Result Comment: TCPo tential interference from hemolysis Performed By: #### L AB17, AFU797, PTP771, LAB85 ####Fire Operations Forester: MELI CARRILLO ([id number])[facility] ([facility])[address] [place] [address] Phosphate [Moles/Vol]on 08-02 Phosphate [Mass/Vol] 2.8 mg/dL 2.3 - 4 .7 mg/dL [facility] Comment on above: TC Potential interference from hemolysis Progress Noteon 08-20-2024 Progress Note Normal [facility] Progress Note Normal [facility] Progress Note Normal [facility] Progress Note OCCUPATIONAL THERAPY [facility] Name/MRN: Krysitna Markham ([id number]) Date: 08/20/2024 OT orders received and chart reviewed. Resident physician currently speaking with pt at bedside. Plan to re-attempt as able. Melodie Rebolledo, OT Normal [facility] Progress Note Normal [facility] Progress Note Normal [facility] Progress Note VBG showing mild res p acidosis with CO2 retention in setting of COPD. CPAP ordered for patient. Will continue to monitor resp and volume status. Normal [facility] Respiratory pathogens DNA an d RNA panel GEO+non-probe (Nph)on 08-20-2024 Adenovirus Not detected Not Detected [facility] B. pertussis DNA GEO+probe Ql (Unsp spec) Not detected Not Detected [facility] Bordetella parapertussis Not detected Not Detected [facility] Chlamydia pneumoniae Not detected Not Detected [facility] Coronavirus 229E Not detected Not Detected [facility] Coronavirus HKU1 Not detected Not Detected [facility] Coronavirus NL63 Not detected Not Detected [facility] Coronavirus OC43 Not detected Not Detected [facility] FLUAV RNA GEO+non-probe Ql (Nph) Not detected Not Detected [facility] FLUBV RNA GEO+non-probe Ql (Nph) Not detected Not Detected [facility] Human Metapneumovirus Not detected Not Detected [facility] Human Rhinovirus/Enterovirus Not detected Not Detected [facility] Interpretation and review of laboratory results Normal [facility] Mycoplasma pneumoniae Not detected Not Detected [facility] Parainfluenza 1 Not detected Not Detected [facility] Parainfluenza 2 Not detected Not Detected [facility] Parainfluenza 3 Not detected Not Detected [facility] Parainfluenza 4 Not detected Not Detected [facility] Respiratory Syncytial Virus Not detected Not Detected [facility] SARS-CoV-2 (COVID-19) RNA GEO+non-probe Ql (Nph) Not detected Not Detected [facility] Methodology: Multipl ex PCR [facility] US ABDOMEN LIMITEDon 024 US ABDOMEN LIMITED Normal [facility] US Abdomen limitedon 024 FINDINGS/IMPRESSION: Tiny amount of perihepatic ascites. Nodular hepatic contour. Report Dictated on Electronically Signed By: Ric Uriostegui MD Electronically Signed Date/Time: 08/20/2024 11:07 AM [facility] Patient Name: KRYSTINA LYNCH : 1955 Exam Date/Time: 08/20/2024 10:43 Procedure: US ABDOMEN LIMITED Ordering Provider: GUERIN MICHAEL Reason For Exam: Please evaluate liver architecture as well as assess for any generalized ascites ULTRASOUND ABDOMEN LIMITED CLINICAL INDICATION: Ascites survey TECHNIQUE: Ultrasound of the abdomen COMPARISON: February 13, 2024 [facility] Ric Uriostegui MD - 08/20/2024 [facility] Name[facility]RYST[facility]AM [facility] 1955 [id number] Exam Date/Time: 08/20/2024 10:43 Procedure: US ABDOMEN LIMITED Ordering Provider: GUERIN MICHAEL Reason For Exam: Please evaluate liver architecture as well as assess for any generalized ascites ULTRASOUND ABDOMEN LIMITED CLINICAL INDICATION: Ascites survey TECHNIQUE: Ultrasound of the abdomen COMPARISON: February 13, 2024 IMPRESSION: FINDINGS/IMPRESSION: Tiny amount of perihepatic ascites. Nodular hepatic contour. Report Dictated on Electronically Signed By: Ric Uriostegui MD Electronically Signed Date/Time: 08/20/2024 11:07 AM EST [facility] Radiology Study observation (narrative) [facility] US Abdomen limitedOrdered By : Ric Uriostegui on 08-20-2024 [facility] Work Phone: Urinalysis complete panel (U )Ordered By: Lee Dubose on 08-20-2024 Bacteria LM.HPF (Urine sed) [#/Area] Few Abnormal Negative /HPF [facility] Bilirubin Ql (U) Negative Negative mg/dL [facility] Clarity (U) Clear Clear [facility] Color (U) Yellow Lt. Yellow [facility] Epithelial cells.squamous LM.HPF (Urine sed) [#/Area] Negative [facility] Glucose Ql (U) Normal Normal (<70) mg/dL [facility] Hemoglobin Ql (U) Negative Negative mg/dL [facility] Hyaline casts Auto (Urine sed) [#/Area] 3-5 Abnormal Negative /LPF [facility] Interpretation and review of laboratory results Abnormal [facility] Ketones (U) [Mass/Vol] Negative Negat heather mg/dL [facility] Leukocyte esterase Test strip Ql (U) Negative Negative Jacqui/uL [facility] Mucus LM.HPF (Urine sed) [#/Area] Few Negative /LPF [facility] Nitrite Ql (U) Positive Abnormal Negative [facility] pH (U) 6.0 [pH] 5.0 - 8.0 pH [facility] Protein (U) [Mass/Vol] 10 mg/dL Abnormal Negative [facility] RBC LM.HPF (Urine sed) [#/Area] 0-2 [facility] Specific gravity (U) [Rel density] 1.009 1.005 - 1.030 [facility] Urobilinogen (U) [Mass/Vol] Normal Normal (0-1) mg/dL [facility] WBC LM.HPF (Urine sed) [#/Area] 3-5 [facility] Vital signson 08-20-2024 Oxygen saturation in Venous blood 51.1 % [facility] XR Chest 2 Viewson 4 Interstitial pulmona ry edema with bilateral pleural effusions. Report Dictated on Electronically Signed By: Reese Bear DR Electronically Signed Date/Time: 08/20/2024 6:42 AM EST [facility] Patient Name: KRYSTINA LYNCH : 1955 Exam Date/Time: 08/20/2024 05:32 Procedure: XR CHEST 2 VIEWS Ordering Provider: GUERIN MICHAEL Reason For Exam: SOB Clinical History: SOB Comparison: 08/19/2024 Technique: PA and lateral radiographs were obtained of the chest. Findings: Moderate cardiomegaly, unchanged. Pulmonary vasculature distended and indistinct with diffuse interstitial opacities. Hazy left basilar and right costophrenic opacities with obscuration of the left hemidiaphragm. No pneumothorax. [facility] Reese Bear MD - 08/20/2024 Patient Name: KRYSTINA MARKHAM : 1955 Exam Date/Time: 08/20/2024 05:32 Procedure: XR CHEST 2 VIEWS Ordering Provider: GUERIN MICHAEL Reason For Exam: SOB Clinical History: SOB Comparison: 08/19/2024 Technique: PA and lateral radiographs were obtained of the chest. Findings: Moderate cardiomegaly, unchanged. Pulmonary vasculature distended and indistinct with diffuse interstitial opacities. Hazy left basilar and right costophrenic opacities with obscuration of the left hemidiaphragm. No pneumothorax. IMPRESSION: Interstitial pulmonary edema with bilateral pleural effusions. Report Dictated on Electronically Signed By: Reese Bear DR Electronically Signed Date/Time: 08/20/2024 6:42 AM EST [facility] Radiology Study observation (narrative) [facility] XR Chest 2 ViewsOrdered By: Reese Bear on 08-20-2024 [facility] [employer] Work Phone: 36on 08-19-2024 36 Normal [facility] AMMONIAon 08-19-2024 Ammonia (P) [Moles/Vol] 22 umol/L Normal 18-72 [facility] Comment on above: Performed By: #### L AB47 ####Fire Operations Forester: MELI CARRILLO ([phone])[facility] ([facility])[address] [place] [address] APTTon 08-19-2024 aPTT Coag (Bld) [Time] 34.5 s High 20.0-30.5 [facility] Comment on above: Result Comment: ANUPAM Alonso COMMENTS:NOTE: The therapeutic time for Heparin anticoagulation, based on Xa activity inhibition, is an APTT of 46-80 seconds. Performed By: #### L AB325, FHS167 ####Fire Operations Forester: MELI CARRILLO ([phone])[facility] ([facility])[address] [place] [address] BLOOD CULTUREon 08-19-2024 Bacteria identified Cx Nom (Bld) Normal [facility] Comment on above: Performed By: #### L AB462 ####Fire Operations Forester: ALEIDA BAEZA ([id number])[facility] ([facility])[address] [place] [address] Bacteria identified Cx Nom (Bld) Normal [facility] Comment on above: Performed By: #### L AB462 ####Fire Operations Forester: ALEIDA BAEZA ([phone])[facility] ([facility])[address] [place] [address] BLOOD GAS, VENOUSon 08-19-20 Base excess Calc (BldV) [Moles/Vol] 1.4 mmol/L Normal -3.0-3.0 [facility] Comment on above: Performed By: #### L AB79 ####Fire Operations Forester: MELI CARRILLO ([phone])[facility]ef[facility] (SBHLAB)[address] CO2 [Moles/Vol] 31.2 mmol/L High 23.0-30.0 [facility] Comment on above: Performed By: #### L AB79 ####Fire Operations Forester: MELI CARRILLO ([phone])[facility] (SB[facility])[address] HCO3 (Bld) [Moles/Vol] 29.3 mmol/L Normal 21.0-30.0 [facility] Comment on above: Performed By: #### L AB79 ####Fire Operations Forester: MELI CARRILLO ([phone])[facility] ([facility])[address] Hemoglobin (Bld) [Mass/Vol] 14.4 g/dL Normal Screen only [facility] Comment on above: Performed By: #### L AB79 ####Fire Operations Forester: MELI CARRILLO ([phone])[facility] ([facility])[address] OXYGEN (MM HG) IN VENOUS BLOOD 21.1 mm Hg Normal [facility] Comment on above: Performed By: #### L AB79 ####Fire Operations Forester: MELI CARRILLO ([phone])[facility] ([facility])[address] OXYGEN SATURATION (%) IN VENOUS BLOOD 29.1 % Normal [facility] Comment on above: Performed By: #### L AB79 ####Fire Operations Forester: MELI CARRILLO ([phone])[facility] ([facility])[address] [place] [address] [place] PCO2, TOSHIA 61.0 mm Hg High 38.0-56.0 [facility] Comment on above: Performed By: #### L AB79 ####Fire Operations Forester: MELI CARRILLO ([phone])[facility] ([facility])[address] PH VENOUS 7.300 Low 7.320-7.420 [facility] Comment on above: Performed By: #### L AB79 ####Fire Operations Forester: MELI CARRILLO ([phone])[facility] ([facility])[address] [place] [address] SOURCE OF OXYGEN Nasal cannula Normal [facility] Comment on above: Result Comment: 5LOR JIM COMMENTS:Assessment of oxygenation is best done with an arterial blood gas determination. Reference ranges for pO2, bicarbonate, and base excess are for mixed venous blood. Specimens drawn from a peripheral vein will often have higher values. Performed By: #### L [id number] ####Fire Operations Forester: MELI CARRILLO ([phone])[facility] ([facility] [place] [address] CBC W Auto Differential pane l (Bld)on 08-19-2024 Basophils (Bld) [#/Vol] 0.1 10*3/uL 0.0 - 0.2 10*3/uL [employer] Basophils/100 WBC (Bld) 1 % 0.0 - 2.0 % [employer] Eosinophils (Bld) [#/Vol] 0.1 10*3/uL 0.0 - 0.5 10*3/uL [employer] Eosinophils/100 WBC (Bld) 1.8 % 0.0 - 6.0 % [employer] Erythrocyte distribution width (RBC) [Ratio] 14.6 % 11.5 - 15.0 % [employer] Hematocrit (Bld) [Volume fraction] 39.7 % Low 40.0 - 52.0 % [employer] Hemoglobin (Bld) [Mass/Vol] 13.2 g/dL 13.0 - 18.0 g/dL [employer] Immature granulocytes (Bld) [#/Vol] 0 10*3/uL NINF - 0.1 10*3/uL [facility] Immature granulocytes/100 WBC (Bld) 0.3 % 0.0 - 2.0 % [facility] Interpretation and review of laboratory results Abnormal [facility] IPF 4 [facility] Lymphocytes (Bld) [#/Vol] 0.7 10*3/uL Low 1.0 - 4.3 10*3/uL [facility] Lymphocytes/100 WBC (Bld) 10.5 % Low 15.0 - 45.0 % [facility] MCH (RBC) [Entitic mass] 31.4 pg 26.0 - 34.0 pg [facility] MCHC (RBC) [Mass/Vol] 33.2 % 30.5 - 36.0 % [facility] MCV (RBC) [Entitic vol] 94.5 fL 77.0 - 99.0 fL [facility] Monocytes (Bld) [#/Vol] 0.7 10*3/uL 0.0 - 0.9 10*3/uL [facility] Monocytes/100 WBC (Bld) 9.5 % 5.0 - 13.0 % [facility] Neutrophils (Bld) [#/Vol] 5.4 10*3/uL 1.8 - 7.5 10*3/uL [facility] Neutrophils/100 WBC (Bld) 76.9 % 38.0 - 82.0 % [facility] Nucleated RBC/100 WBC (Bld) [Ratio] 0 % [facility] Platelet mean volume (Bld) [Entitic vol] 10.5 fL 9.0 - 12.7 fL [facility] Platelets (Bld) [#/Vol] 145 10*3/uL 140 - 440 10*3/uL [facility] RBC (Bld) [#/Vol] 4.2 10*6/uL Low 4.40 - 5.9 0 10*6/uL [facility] WBC (Bld) [#/Vol] 7 10*3/uL 3.6 - 10.7 10*3/uL [facility] CBC WITH AUTO DIFFERENTIALon 08-19-2024 Basophils (Bld) [#/Vol] 0.1 10*3/uL Normal 0.0-0.2 [facility] Comment on above: Performed By: #### L [id number] ####Fire Operations Forester: MELI CARRILLO ([phone])[facility] ([facility])[address] Basophils/100 WBC (Bld) 1.0 % Normal 0.0-2.0 [facility] Comment on above: Performed By: #### L [id number] ####Fire Operations Forester: MELI CARRILLO ([phone])[facility] ([facility])[address] Eosinophils (Bld) [#/Vol] 0.1 10*3/uL Normal 0.0-0.5 [facility] Comment on above: Performed By: #### L [id number] ####Fire Operations Forester: MELI CARRILLO ([id number])[facility] ([facility])[address] Eosinophils/100 WBC (Bld) 1.8 % Normal 0.0-6.0 [facility] Comment on above: Performed By: #### L [id number] ####Fire Operations Forester: MELI CARRILLO ([id number])[facility] ([facility])[address] Erythrocyte distribution width (RBC) [Ratio] 14.6 % Normal 11.5-15.0 [facility] Comment on above: Performed By: #### L [id number] ####Fire Operations Forester: MELI CARRILLO ([phone])[facility] [place] ([facility])[address] [place] [address] Hematocrit (Bld) [Volume fraction] 39.7 % Low 40.0-52.0 [facility] Comment on above: Performed By: #### L [id number] ####Fire Operations Forester: MELI CARRILLO ([id number])[facility] [place] ([facility])[address] Hemoglobin (Bld) [Mass/Vol] 13.2 g/dL Normal 13.0-18.0 [facility] Comment on above: Performed By: #### L [id number] ####Fire Operations Forester: MELI CARRILLO ([id number])[facility] ([facility])[address] IMMATURE GRANS % 0.3 % Normal 0.0-2.0 [facility] Comment on above: Performed By: #### L [id number] ####Fire Operations Forester: MELI CARRILLO ([id number])[facility] ([facility])[address] IMMATURE GRANS ABSOLUTE 0.0 10*3/uL Normal <0.1 [facility] Comment on above: Performed By: #### L [id number] ####Fire Operations Forester: MELI CARRILLO ([phone])[facility] [place] ([facility])[address] IPF 4 Normal [facility] Comment on above: Performed By: #### L [id number] ####Fire Operations Forester: MELI CARRILLO ([phone])[facility] [place] ([facility])[address] Lymphocytes (Bld) [#/Vol] 0.7 10*3/uL Low 1.0-4.3 [facility] Comment on above: Performed By: #### L [id number] ####Fire Operations Forester: MELI CARRILLO ([phone])[facility] ([facility])[address] Lymphocytes/100 WBC (Bld) 10.5 % Low 15.0-45.0 [facility] Comment on above: Performed By: #### L [id number] ####Fire Operations Forester: MELI CARRILLO ([id number])[facility] [place] ([facility])[address] MCH (RBC) [Entitic mass] 31.4 pg Normal 26.0-34.0 [facility] Comment on above: Performed By: #### L [id number] ####Fire Operations Forester: MELI CARRILLO ([id number])[facility] [place] ([facility])[address] MCHC 33.2 % Normal 30.5-36.0 [facility] Comment on above: Performed By: #### L [id number] ####Fire Operations Forester: MELI PEREZMASSIEL ([id number])[facility] ([facility])[address] MCV (RBC) [Entitic vol] 94.5 fL Normal 77.0-99.0 [facility] Comment on above: Performed By: #### L [id number] ####Fire Operations Forester: MELI PEREZMASSIEL ([id number])[facility] ([facility])[address] Monocytes (Bld) [#/Vol] 0.7 10*3/uL Normal 0.0-0.9 [facility] Comment on above: Performed By: #### L [id number] ####Fire Operations Forester: MELI CARRILLO ([id number])[facility] ([facility])[address] Monocytes/100 WBC (Bld) 9.5 % Normal 5.0-13.0 [facility] Comment on above: Performed By: #### L [id number] ####Fire Operations Forester: MELI CARRILLO ([phone])[facility] ([facility])[address] [place] [address] NEUTROPHILS ABSOLUTE 5.4 10*3/uL Normal 1.8-7.5 [facility] Comment on above: Performed By: #### L [id number] ####Fire Operations Forester: MELI PEREZMASSIEL ([id number])[facility] [place] ([facility])[address] Neutrophils/100 WBC (Bld) 76.9 % Normal 38.0-82.0 [facility] Comment on above: Performed By: #### L [id number] ####Fire Operations Forester: MELI CARRILLO ([id number])[facility] [place] ([facility])[address] NRBC 0.0 /100 WBCs Normal 0.0-2.0 [facility] Comment on above: Performed By: #### L [id number] ####Fire Operations Forester: MELI CARRILLO ([id number])[facility] [place] ([facility])[address] Platelet mean volume (Bld) [Entitic vol] 10.5 fL Normal 9.0-12.7 [facility] Comment on above: Performed By: #### L [id number] ####Fire Operations Forester: MELI CARRILLO ([id number])[facility] [place] ([facility])[address] Platelets (Bld) [#/Vol] 145 10*3/uL Normal 140-440 [facility] Comment on above: Performed By: #### L [id number] ####Fire Operations Forester: MELI CARRILLO ([id number])[facility] [place] ([facility])[address] RBC (Bld) [#/Vol] 4.20 10*6/uL Low 4.40-5.90 [facility] Comment on above: Performed By: #### L [id number] ####Fire Operations Forester: MELI CARRILLO ([id number])[facility] [place] ([facility])[address] WBC (Bld) [#/Vol] 7.0 10*3/uL Normal 3.6-10.7 [facility] Comment on above: Performed By: #### L [id number] ####Fire Operations Forester: MELI CARRILLO ([id number])[facility] [place] ([facility])[address] COMPREHENSIVE METABOLIC PANE Maciel 08-19-2024 Albumin [Mass/Vol] 2.8 g/dL Low 3.4-4.8 [facility] Comment on above: Performed By: #### L [id number], [id number], [id number], LAB46 ####Fire Operations Forester: MELI CARRILLO ([id number])[facility] [place] ([facility])[address] [place] [address] [place] ALP [Catalytic activity/Vol] 416 U/L High 40-150 [facility] Comment on above: Performed By: #### L AB17, [id number], [id number], LAB46 ####Fire Operations Forester: MELI CARRILLO ([id number])[facility] OROPEZAN ([facility])[address] [place] [address] [place] ALT [Catalytic activity/Vol] 21 U/L Normal <40 [facility] Comment on above: Performed By: #### L AB17, [id number], [id number], LAB46 ####Fire Operations Forester: MLEI CARRILLO ([id number])[facility] [place] ([facility])[address] Anion gap [Moles/Vol] 9 mmol/L Normal 3-13 [facility] Comment on above: Performed By: #### Araseli AB17, [id number], [id number], LAB46 ####Fire Operations Forester: MELI CARRILLO ([phone])[facility]ef[facility] VILLASENORREUN[facility] ([facility])[address] [place] [address] [place] AST [Catalytic activity/Vol] 51 U/L High <34 [facility] Comment on above: Performed By: #### L AB17, [id number], [id number], LAB46 ####Fire Operations Forester: MELI CARRILLO ([id number])[facility] VILLASENORTSAILE HEALTH [facility]ENTERN ([facility])[address] Bilirubin [Mass/Vol] 0.8 mg/dL Normal <1.2 [facility] Comment on above: Performed By: #### L AB17, [id number], [id number], LAB46 ####Fire Operations Forester: MELI CARRILLO ([id number])[facility] VILLASENORTSAILE HEALTH CENTERN ([facility])[address] Calcium [Mass/Vol] 8.7 mg/dL Low 8.8-10.0 [facility] Comment on above: Performed By: #### L AB17, [id number], [id number], LAB46 ####Fire Operations Forester: MELI CARRILLO ([id number])[facility] VILLASENORREUNION RE[facility] ([facility])[address] Chloride [Moles/Vol] 102 mmol/L Normal 98-107 [facility] Comment on above: Performed By: #### L AB17, [id number], [id number], LAB46 ####Fire Operations Forester: MELI CARRILLO ([id number])[facility] (HLAB)[address] CO2 [Moles/Vol] 25 mmol/L Normal 23-31 [facility] Comment on above: Performed By: #### L AB17, [id number], [id number], LAB46 ####Fire Operations Forester: MELI CARRILLO ([id number])[facility] ([facility])[address] [place] [address] Creatinine [Mass/Vol] 0.77 mg/dL Normal 0.72-1.25 [facility] Comment on above: Performed By: #### L AB17, [id number], [id number], LAB46 ####Fire Operations Forester: MELI CARRILLO ([id number])[facility] ([facility])[address] GLOMERULAR FILTRATION RATE ML/MIN/1.73 SQ M.PREDICTED >90.0 Normal >60.0 [facility] Comment on above: Result Comment: Calc ulation based on the Chronic Kidney Disease Epidemiology Collaboration (CKD-EPI) equation refit without adjustment for race Performed By: #### L AB17, [id number], [id number], LAB46 ####Fire Operations Forester: MELI CARRILLO ([id number])[facility] ([facility] [place] [address] [place] Glucose [Mass/Vol] 96 mg/dL Normal 82-115 [facility] Comment on above: Performed By: #### L AB17, [id number], [id number], LAB46 ####Fire Operations Forester: MELI CARRILLO ([id number])[facility] ([facility])[address] Potassium [Moles/Vol] 3.8 mmol/L Normal 3.5-5.1 [facility] Comment on above: Result Comment: [facility] potassium values may be up to 0.5 mmol/L lower than serum values. Performed By: #### L AB17, [id number], [id number], LAB46 ####Fire Operations Forester: MELI CARRILLO ([id number])[facility] ([facility])[address] Protein [Mass/Vol] 6.2 g/dL Low 6.4-8.3 [facility] Comment on above: Performed By: #### L AB17, [id number], [id number], LAB46 ####Fire Operations Forester: MELI CARRILLO ([id number])[facility] ([facility])[address] [place] [address] Sodium [Moles/Vol] 136 mmol/L Normal 136-145 [facility] Comment on above: Performed By: #### L AB17, [id number], [id number], LAB46 ####Fire Operations Forester: MELI CARRILLO ([phone])[facility] ([facility])[address] [place] [address] Urea nitrogen [Mass/Vol] 14 mg/dL Normal 9-23 [facility] Comment on above: Performed By: #### L AB17, [id number], [id number], LAB46 ####Fire Operations Forester: MELI CARRILLO ([id number])[facility] ([facility])[address] [place] [address] Comprehensive metabolic 1998 panelon 08-19-2024 Albumin [Mass/Vol] 2.8 g/dL Low 3.4 - 4.8 g/dL [facility] ALP [Catalytic activity/Vol] 416 U/L High 40 - 150 U/L [facility] ALT [Catalytic activity/Vol] 21 U/L NINF - 40 U/L [facility] Anion gap [Moles/Vol] 9 mmol/L 3 - 13 mmol/L [facility] AST [Catalytic activity/Vol] 51 U/L High NINF - 34 U/L [facility] Bilirubin [Mass/Vol] 0.8 mg/dL NINF - 1.2 mg/dL [facility] Calcium [Mass/Vol] 8.7 mg/dL Low 8.8 - 10. 0 mg/dL [facility] Chloride [Moles/Vol] 102 mmol/L 98 - 10 7 mmol/L [facility] CO2 [Moles/Vol] 25 mmol/L 23 - 31 mmol/L [facility] Creatinine [Mass/Vol] 0.77 mg/dL 0.72 - 1.25 mg/dL [facility] GFR/1.73 sq M.predicted (S/P/Bld) [Vol rate/Area] - PINF [facility] Comment on above: Calculation based on the Chronic Kidney Disease Epidemiology Collaboration (CKD-EPI) equation refit without adjustment for race Glucose [Mass/Vol] 96 mg/dL 82 - 115 mg/dL [facility] Interpretation and review of laboratory results Abnormal [facility] Potassium [Moles/Vol] 3.8 mmol/L 3.5 - 5.1 mmol/L [facility] Comment on above: Plasma potassium natalie ues may be up to 0.5 mmol/L lower than serum values. Protein [Mass/Vol] 6.2 g/dL Low 6.4 - 8.3 g/dL [facility] Sodium [Moles/Vol] 136 mmol/L 136 - 145 mmol/L [facility] Urea nitrogen [Mass/Vol] 14 mg/dL 9 - 23 mg/dL [facility] ECG 12-LEADon 08-19-2024 ECG 12-LEAD IMPRESSION: Atrial fibrillation Left bundle branch block ST elevation secondary to IVCD Electronically Signed On 08-19-2024 18:25:03 EST by Karthik Guerin Normal [facility] ED Nursing Noteon 08-19-2024 ED Nursing Note Family medicine resi dent at bedside at this time. Normal [facility] ED Nursing Note Holding IV fluids at this time per Dr. Guerin until BMP results. Normal [facility] ED Nursing Note Normal [facility] ED Provider Noteon ED Provider Note Normal [facility] ETHANOLon 08-19-2024 ETHANOL IN SER/PLAS <10 Normal <10 [facility] Comment on above: Result Comment: ANUPAM Alonso COMMENTS:SHEARING MACHINE FEEDER depression is seen >100 mg/dL.NOTE: This result is for medical treatment only. Analysis performed using non-forensic procedures. Performed By: #### L AB17, [id number], [id number], LAB46 ####Fire Operations Forester: MELI CARRILLO ([id number])[facility] ([facility])[address] Ethanol (Bld) [Mass/Vol]on 1 10-20-2023 Ethanol [Mass/Vol] mg/dL NINF - 10 mg/dL [facility] Interpretation and review of laboratory results Normal [facility] SHEARING MACHINE FEEDER depression is se en >100 mg/dL. NOTE: This result is for medical treatment only. Analysis performed using non-forensic procedures. [facility] HIGH SENSITIVITY TROPONIN, S ERIAL BASELINEon 08-19-2024 TROPONIN HIGH SENSITIVITY BASELINE 37 ng/L High <=35 [facility] Comment on above: Performed By: #### L AB17, [id number], [id number], LAB46 ####Fire Operations Forester: MELI CARRILLO ([id number])[facility] ([facility])[address] HIGH SENSITIVITY TROPONIN, S ERIAL, SECOND TESTon 08-19-2024 TROPONIN HS DELTA, BASELINE TO SECOND -2 ng/L Normal <=2 [facility] Comment on above: Result Comment: A tr oponin delta greater than or equal to 15 ng/L is significant for acute cardiac injury.Values less than 15 but greater than 2 are an intermediate change requiring a 3rd serial troponin to be drawn.Values less than or equal to 2 indicate acute cardiac injury is not likely, see external algorithms for further clinical guidance. Performed By: #### L [id number], [id number], [id number], [id number] ####Fire Operations Forester: MELI CARRILLO ([phone])[facility] ([facility])[address] TROPONIN HS, SERIAL REFLEX, TEST TWO 35 ng/L Normal <=35 [facility] Comment on above: Performed By: #### L [id number], [id number], [id number], [id number] ####Fire Operations Forester: MELI CARRILLO ([id number])[facility] ([facility])[address] LACTIC ACID WITH REFLEXon Lactate [Moles/Vol] 1.3 mmol/L Normal 0.5-2.2 [facility] Comment on above: Performed By: #### L [id number] ####Fire Operations Forester: MELI CARRILLO ([id number])[facility] ([facility])[address] [place] [address] Laboratory - Chemistry and C hemistry - challengeOrdered By: Paloma Marx on 08-19-2024 Base excess Calc (BldV) [Moles/Vol] 1.4 mmol/L -3.0 - 3.0 mmol/L [facility] CO2 (BldV) [Partial pressure] 61 mm[Hg] High [facility] CO2 [Moles/Vol] 31.2 mmol/L High 23.0 - 30.0 mmol/L [facility] HCO3 (Bld) [Moles/Vol] 29.3 mmol/L 21.0 - 30.0 mmol/L [facility] Oxygen (BldV) [Partial pressure] 21.1 mm[Hg] mm Hg [facility] pH (BldV) 7.3 [pH] Low 7.320 - 7.420 [facility] Laboratory - Chemistry and C hemistry - challengeon 08-19-2024 Procalcitonin [Mass/Vol] 0.04 ng/mL NINF - 0.07 ng/mL [facility] Magnesium [Mass/Vol] 1.7 mg/dL 1.6 - 2 .6 mg/dL [facility] Lactate [Moles/Vol] 1.3 mmol/L 0.5 - 2. 2 mmol/L [facility] Ammonia (P) [Moles/Vol] 22 umol/L 18 - 72 umol/L [facility] Laboratory - Coagulationon 1 10-20-2023 PT Coag (Bld) [Time] 14.2 s High 9.0 - 12.0 s [facility] Laboratory - Hematology and Cell countsOrdered By: Paloma Marx on 08-19-2024 Hemoglobin (Bld) [Mass/Vol] 14.4 g/dL Screen only [facility] - Microbiology an d Antimicrobial susceptibilityon 08-19-2024 FLUAV RNA GEO+probe Ql (Resp) Not detected Not Detected [facility] FLUBV RNA GEO+probe Ql (Resp) Not detected Not Detected [facility] RSV RNA GEO+probe Ql (Resp) Not detected Not Detected [facility] SARS-CoV-2 (COVID-19) RNA GEO+probe Ql (Resp) Not detected Not Detected [facility] SARS-CoV-2 (COVID-19) RNA GEO+probe Ql (Unsp spec) Methodology: real-time, RT-PCR The SARS-CoV-2, Flu A/B, and RSV Combo assay is intended for in vitro diagnostic use under the FDA Emergency Use Authorization (EUA). This test has not been FDA cleared or approved. In compliance with this authorization, please visit www.fda.gov/media/125221 /download or www.fda.gov/media/756975 /download to access the applicable information sheets. [facility] MAGNESIUMon 08-19-2024 Magnesium [Mass/Vol] 1.7 mg/dL Normal 1.6-2.6 [facility] Comment on above: Result Comment: ANUPAM Alonso COMMENTS:Higher values can be expected in females during menses. Performed By: #### L [id number], [id number], [id number], [id number] ####Fire Operations Forester: MELI CARRILLO ([phone])[facility] ([facility])[address] [place] [address] Magnesium [Mass/Vol]on 08-19 Higher values can be expected in females during menses. [facility] NT PRO BNPon 08-19-2024 Natriuretic peptide B (Bld) [Mass/Vol] 89512 pg/mL High <125 [facility] Comment on above: Performed By: #### L AB17, [id number], [id number], LAB46 ####Fire Operations Forester: MELI CARRILLO ([id number])[facility] ([facility])[address] [place] [address] Natriuretic peptide B [Mass/ Vol]on 08-19-2024 Interpretation and review of laboratory results Abnormal [facility] Natriuretic peptide B (Bld) [Mass/Vol] 02333 pg/mL High NINF - 125 pg/mL [facility] No Panel InformationOrdered By: Paloma Marx on 08-19-2024 Interpretation and review of laboratory results Abnormal [facility] Source Of Oxygen Nasal cannula [facility] Comment on above: 5L Assessment of oxygenation is best done with an arterial blood gas determination. Reference ranges for pO2, bicarbonate, and base excess are for mixed venous blood. Specimens drawn from a peripheral vein will often have higher values. [facility] No Panel Informationon 08-19 Interpretation and review of laboratory results Normal [facility] Troponin HS Delta, Baseline to Second -2 ng/L NINF - 2 ng/L [facility] Comment on above: A troponin delta gre ater than or equal to 15 ng/L is significant for acute cardiac injury. Values less than 15 but greater than 2 are an intermediate change requiring a 3rd serial troponin to be drawn. Values less than or equal to 2 indicate acute cardiac injury is not likely, see external algorithms for further clinical guidance. Troponin HS, Serial Second 35 ng/L NINF - 35 ng/L [facility] Interpretation and review of laboratory results Normal [facility] P [place] 0 degrees [facility] VA Interval 0 ms [facility] QRS [place] 250 degrees [facility] QRSD Interval 167 ms [facility] QT Interval 446 ms [facility] QTC Interval 540 ms [facility] T Wave [place] 87 degrees [facility] Atrial fibrillation Left bundle branch block ST elevation secondary to IVCD Electronically Signed On 08-19-2024 18:25:03 EST by Karthik Guerin CV Karthik Ward MD - 08/19/2024 IMPRESSION: Atrial fibrillation Left bundle branch block ST elevation secondary to IVCD Electronically Signed On 08-19-2024 18:25:03 EST by Karthik Guerin [facility] Interpretation and review of laboratory results Abnormal [facility] Troponin HS, Serial Baseline 37 ng/L High NINF - 35 ng/L [facility] Interpretation and review of laboratory results Abnormal [facility] Interpretation and review of laboratory results Normal [facility] PHOSPHORUSon 08-19-2024 Phosphate [Mass/Vol] 2.8 mg/dL Normal 2.3-4.7 [facility] Comment on above: Performed By: #### L [id number], [id number], [id number], [id number] ####Fire Operations Forester: MELI CARRILLO ([id number])[facility] CENTEREstefania [facility] CENTERBERNADETTE ([facility])[address] PROCALCITONIN TESTon 024 PROCALCITONIN 0.04 ng/mL Normal <0.07 [facility] Comment on above: Result Comment: ANUPAM Alonso COMMENTS:PCT <0.50 = Low risk of severe sepsis and/or septic shock.PCT >2.00 = High risk of severe sepsis and/or septic shock. Performed By: #### L [id number], [id number], [id number], [id number] ####Fire Operations Forester: MELI CARRILLO ([phone])[facility] ([facility])[address] [place] [address] PROTHROMBIN TIMEon 4 INR Coag (PPP) [Relative time] 1.3 {INR} High 0.9-1.1 [facility] Comment on above: Result Comment: Migue mmended Anticoagulant Therapy: SEE BELOW----- INR of 2.0 - 3.0 : - Prophylaxis of Venous Thrombosis (high-risk surgery) - Treatment of Venous Thrombosis - Treatment of Pulmonary Embolism (Includes tissue heart valves, Acute Myocardial Infarction to prevent systemic embolism, Valvular Heart Disease, and Atrial Fibrillation)----- INR of 2.5 - 3.5 : - Mechanical Prosthetic Valves (high risk) - If oral anticoagulant therapy is used to prevent Myocardial Infarction Performed By: #### L [id number], [id number] ####Fire Operations Forester: MELI CARRILLO ([id number])[facility] MED[facility] CENTEREstefania [facility] CENTERBERNADETTE ([facility])[address] [place] [address] PT Coag (PPP) [Time] 14.2 s High 9.0-12.0 [facility] Comment on above: Performed By: #### L [id number], [id number] ####Fire Operations Forester: MELI CARRILLO ([id number])[facility] (SBHLAB)[address] PT Coag (Bld) [Time]on 08-19 INR Coag (PPP) [Relative time] 1.3 {INR} High 0.9 - 1.1 [facility] Comment on above: Recommended Anticoag ulant Therapy: SEE BELOW ----- INR of 2.0 - 3.0 : - Prophylaxis of Venous Thrombosis (high-risk surgery) - Treatment of Venous Thrombosis - Treatment of Pulmonary Embolism (Includes tissue heart valves, Acute Myocardial Infarction to prevent systemic embolism, Valvular Heart Disease, and Atrial Fibrillation) ----- INR of 2.5 - 3.5 : - Mechanical Prosthetic Valves (high risk) - If oral anticoagulant therapy is used to prevent Myocardial Infarction Phosphate [Moles/Vol]on 08-02 Phosphate [Mass/Vol] 2.8 mg/dL 2.3 - 4 .7 mg/dL [facility] Procalcitonin [Mass/Vol]on 10-20-2023 Interpretation and review of laboratory results Normal [facility] PCT <0.50 = Low risk of severe sepsis and/or septic shock. PCT >2.00 = High risk of severe sepsis and/or septic shock. [facility] RESPIRATORY PATHOGENS PANEL BY PCRon 08-19-2024 RESPIRATORY PATHOGENS PANEL BY PCR Normal [facility] Comment on above: Performed By: #### L [id number] ####Fire Operations Forester: ALEIDA BAEZA ([id number])[facility] (SACLAB[address] SARS-COV-2, FLU A/B, AND RSV COMBOon 08-19-2024 SARS-CoV-2 (COVID-19) RNA GEO+probe Ql (Unsp spec) Normal [facility] Comment on above: Performed By: #### L [id number] ####Fire Operations Forester: MELI CARRILLO ([id number])[facility] CENTEREstefania OROPEZAShannon (SBHLAB)[address] SARS-CoV-2, Flu A/B, and RSV Comboon 08-19-2024 Interpretation and review of laboratory results Normal [facility] Vital signsOrdered By: Paloma Marx on 08-19-2024 Oxygen saturation in Venous blood 29.1 % [facility] Vital signson 08-19-2024 Heart rate 88 /min bpm [facility] XR Chest Single viewon 08-19 Patient Name: KRYSTINA LYNCH : 1955 Exam Date/Time: 08/19/2024 17:48 Procedure: XR CHEST 1 VIEW Ordering Provider: GUERIN MICHAEL Reason For Exam: cough Chest one view HISTORY: Cough COMPARISON: 11/12/2023 Cardiomegaly. Cardiac pacer located on left side. Mild infiltrate in the right lung base. No pleural effusions. Report Dictated on Electronically Signed By: Paul Leiva MD Electronically Signed Date/Time: 08/19/2024 6:07 PM [facility] Paul Leiva MD - 08/19/2024 Patient Name: KRYSTINA MARKHAM : 1955 Exam Date/Time: 08/19/2024 17:48 Procedure: XR CHEST 1 VIEW Ordering Provider: GUERIN MICHAEL Reason For Exam: cough Chest one view HISTORY: Cough COMPARISON: 11/12/2023 Cardiomegaly. Cardiac pacer located on left side. Mild infiltrate in the right lung base. No pleural effusions. Report Dictated on Electronically Signed By: Paul Leiva MD Electronically Signed Date/Time: 08/19/2024 6:07 PM EST [facility] Radiology Study observation (narrative) [facility] [facility] XR Chest Single viewOrdered By: Paul Leiva on 08-19-2024 [facility] Work Phone: aPTT Coag (Bld) [Time]on aPTT Coag (PPP) [Time] 34.5 s High 20.0 - 30.5 s [facility] NOTE: The therapeuti c time for Heparin anticoagulation, based on Xa activity inhibition, is an APTT of 46-80 seconds. [facility] 36on 08-12-2024 36 We have been unable to reach your patient to schedule their testing. Test Name: PFT 1st Attempt: 04/23/2024 mychart message sent 2nd Attempt: 08/12/2024 left voicemail Normal [facility] CBC panel Auto (Bld)on 02-16 Erythrocyte distribution width (RBC) [Ratio] 13.7 % 11.5 - 15.0 % [facility] Hematocrit (Bld) [Volume fraction] 31.3 % Low 40.0 - 52.0 % [facility] Hemoglobin (Bld) [Mass/Vol] 10.5 g/dL Low 13.0 - 18.0 g/dL [facility] Interpretation and review of laboratory results Abnormal [facility] MCH (RBC) [Entitic mass] 31.2 pg 26.0 - 34.0 pg [facility] MCHC (RBC) [Mass/Vol] 33.5 % 30.5 - 36.0 % [facility] MCV (RBC) [Entitic vol] 92.9 fL 77.0 - 99.0 fL [facility] Platelet mean volume (Bld) [Entitic vol] 8.9 fL Low 9.0 - 12.7 fL [facility] Platelets (Bld) [#/Vol] 235 10*3/uL 140 - 440 10*3/uL [facility] RBC (Bld) [#/Vol] 3.37 10*6/uL Low 4.40 - 5.9 0 10*6/uL [facility] WBC (Bld) [#/Vol] 8.3 10*3/uL 3.6 - 10.7 10*3/uL [facility] Comprehensive metabolic 1998 panelon 02-17-2024 Albumin [Mass/Vol] 3.6 g/dL 3.5 - 5.0 g/dL [facility] ALP [Catalytic activity/Vol] 104 U/L 38 - 126 U/L [facility] ALT [Catalytic activity/Vol] 16 U/L 0 - 49 U/L [facility] Anion gap [Moles/Vol] 6 mmol/L 3 - 13 mmol/L [facility] AST [Catalytic activity/Vol] 29 U/L 15 - 46 U/L [facility] Bilirubin [Mass/Vol] 0.6 mg/dL 0.2 - 1 .3 mg/dL [facility] Calcium [Mass/Vol] 8.8 mg/dL 8.4 - 10. 4 mg/dL [facility] Chloride [Moles/Vol] 98 mmol/L 98 - 10 7 mmol/L [facility] CO2 [Moles/Vol] 30 mmol/L 22 - 30 mmol/L [facility] Creatinine [Mass/Vol] 0.69 mg/dL 0.66 - 1.25 mg/dL [facility] GFR/1.73 sq M.predicted MDRD (S/P/Bld) [Vol rate/Area] - PINF [facility] Comment on above: Calculation based on the Chronic Kidney Disease Epidemiology Collaboration (CKD-EPI) equation refit without adjustment for race Glucose [Mass/Vol] 106 mg/dL High 70 - 100 mg/dL [facility] Interpretation and review of laboratory results Abnormal [facility] Potassium [Moles/Vol] 4.0 mmol/L 3.5 - 5.1 mmol/L [facility] Protein [Mass/Vol] 6.7 g/dL 6.3 - 8.2 g/dL [facility] Sodium [Moles/Vol] 134 mmol/L Low 135 - 145 mmol/L [facility] Urea nitrogen [Mass/Vol] 21 mg/dL High 9 - 20 mg/dL [facility] Laboratory - Coagulationon 0 02-17-2024 PT Coag (Bld) [Time] 11.4 s 9.0 - 12.0 s [facility] MR Brain WO contraston 02-16 1. No acute intracranial abnormalities. 2. Generalized brain parenchymal volume loss and moderate chronic microvascular ischemic changes in the supratentorial white matter. Report Dictated on Electronically Signed By: Karthik Coffman MD Electronically Signed Date/Time: 02/17/2024 11:51 AM [facility]Y [facility] Patient Name: KRYSTINA LYNCH : 1955 [facility]#: [id number] Exam Date/Time: 02/17/2024 11:24 Procedure: MR BRAIN WO CONTRAST Ordering Provider: AVERY JOSEPH Reason For Exam: Neuro deficit, acute, stroke suspected MRI BRAIN WITHOUT CONTRAST INDICATIONS: Neuro deficit, acute, stroke suspected COMPARISON: None TECHNIQUE: Multiplanar, multisequence MRI of the brain was performed without contrast. FINDINGS: Acute Change: No evidence of acute infarction. No fluid collection or intracranial hemorrhage. Mass Lesion: None. Parenchyma: Scattered patchy and beginning confluent foci of nonspecific T2/FLAIR hyperintensity in the supratentorial white matter. Ventricles and sulci: Moderate generalized brain parenchymal volume loss with mild proportionate ventricular enlargement. Skull base: Normal appearance of the pituitary gland. Normal position of the cerebellar tonsils. Vessels: The major intracranial flow voids are preserved. Extracranial structures: Normal orbits. No extracranial soft tissue abnormalities. Sinuses/mastoids: Clear Bones: No pathologic marrow infiltration. [facility] Karthik Coffman MD - 02/17/2024 [facility] Name[facility]RY[facility] 1955 [id number] Exam Date/Time: 02/17/2024 11:24 Procedure: MR BRAIN WO CONTRAST Ordering Provider: AVERY JOSEPH Reason For Exam: Neuro deficit, acute, stroke suspected MRI BRAIN WITHOUT CONTRAST INDICATIONS: Neuro deficit, acute, stroke suspected COMPARISON: None TECHNIQUE: Multiplanar, multisequence MRI of the brain was performed without contrast. FINDINGS: Acute Change: No evidence of acute infarction. No fluid collection or intracranial hemorrhage. Mass Lesion: None. Parenchyma: Scattered patchy and beginning confluent foci of nonspecific T2/FLAIR hyperintensity in the supratentorial white matter. Ventricles and sulci: Moderate generalized brain parenchymal volume loss with mild proportionate ventricular enlargement. Skull base: Normal appearance of the pituitary gland. Normal position of the cerebellar tonsils. Vessels: The major intracranial flow voids are preserved. Extracranial structures: Normal orbits. No extracranial soft tissue abnormalities. Sinuses/mastoids: Clear Bones: No pathologic marrow infiltration. IMPRESSION: 1. No acute intracranial abnormalities. 2. Generalized brain parenchymal volume loss and moderate chronic microvascular ischemic changes in the supratentorial white matter. Report Dictated on Electronically Signed By: Karthik Coffman MD Electronically Signed Date/Time: 02/17/2024 11:51 AM EDT [employer] [facility] Radiology Study observation (narrative) [facility] [facility] MR Brain WO contrastOrdered By: Karthik Coffman on 02-17-2024 [employer] Work Phone: MR Cervical spine WO contras ton 02-17-2024 1. Cervical spondylo sis most pronounced at the C3-C4 level Report Dictated on Electronically Signed By: Karthik Coffman MD Electronically Signed Date/Time: 02/17/2024 11:57 AM EDT [facility] Patient Name: KRYSTINA LYNCH : 1955 Exam Date/Time: 02/17/2024 11:25 Procedure: MR CERVICAL SPINE WO CONTRAST Ordering Provider: AVERY JOSEPH Reason For Exam: neck/shoulder pain, arm numbness EXAM: MR CERVICAL SPINE WO CONTRAST CLINICAL HISTORY: neck/shoulder pain, arm numbness TECHNIQUE: Multiplanar, multisequence MRI of the cervical spine without contrast. COMPARISON: None FINDINGS: Craniocervical junction: Within normal limits. Soft tissues: No prevertebral or paraspinal edema. Alignment: Within normal limits. Cord: Normal morphology and signal intensity. Vertebrae: Normal vertebral marrow signal intensity. No compression deformities or osseous lesions. Canal and foramina: C2-C3: Canal and foramina are patent C3-C4: Disc osteophyte complex and facet hypertrophy is noted. There is effacement of ventral thecal sac without effect on the overlying cord. There is severe bilateral neural foraminal narrowing C4-C5: Disc osteophyte complex and facet hypertrophy is noted. There is partial effacement of ventral thecal sac without effect on the overlying cord. There is mild right-sided neural foraminal narrowing C5-C6: Facet hypertrophy is noted. There is moderate right-sided neural foraminal narrowing C6-C7: Facet hypertrophy is noted. There is mild bilateral neural foraminal narrowing C7-T1: Canal and foramina are patent [facility] Karthik Coffman MD - 02/17/2024 Patient Name: KRYSTINA MARKHAM : 1955 Exam Date/Time: 02/17/2024 11:25 Procedure: MR CERVICAL SPINE WO CONTRAST Ordering Provider: AVERY JOSEPH Reason For Exam: neck/shoulder pain, arm numbness EXAM: MR CERVICAL SPINE WO CONTRAST CLINICAL HISTORY: neck/shoulder pain, arm numbness TECHNIQUE: Multiplanar, multisequence MRI of the cervical spine without contrast. COMPARISON: None FINDINGS: Craniocervical junction: Within normal limits. Soft tissues: No prevertebral or paraspinal edema. Alignment: Within normal limits. Cord: Normal morphology and signal intensity. Vertebrae: Normal vertebral marrow signal intensity. No compression deformities or osseous lesions. Canal and foramina: C2-C3: Canal and foramina are patent C3-C4: Disc osteophyte complex and facet hypertrophy is noted. There is effacement of ventral thecal sac without effect on the overlying cord. There is severe bilateral neural foraminal narrowing C4-C5: Disc osteophyte complex and facet hypertrophy is noted. There is partial effacement of ventral thecal sac without effect on the overlying cord. There is mild right-sided neural foraminal narrowing C5-C6: Facet hypertrophy is noted. There is moderate right-sided neural foraminal narrowing C6-C7: Facet hypertrophy is noted. There is mild bilateral neural foraminal narrowing C7-T1: Canal and foramina are patent IMPRESSION: 1. Cervical spondylosis most pronounced at the C3-C4 level Report Dictated on Electronically Signed By: Karthik Coffman MD Electronically Signed Date/Time: 02/17/2024 11:57 AM EDT [facility] Radiology Study observation (narrative) [facility] PT Coag (Bld) [Time]on 02-16 INR Coag (PPP) [Relative time] 1.1 {INR} 0.9 - 1.1 [facility] Comment on above: Recommended Anticoag ulant Therapy: SEE BELOW ----- INR of 2.0 - 3.0 : - Prophylaxis of Venous Thrombosis (high-risk surgery) - Treatment of Venous Thrombosis - Treatment of Pulmonary Embolism (Includes tissue heart valves, Acute Myocardial Infarction to prevent systemic embolism, Valvular Heart Disease, and Atrial Fibrillation) ----- INR of 2.5 - 3.5 : - Mechanical Prosthetic Valves (high risk) - If oral anticoagulant therapy is used to prevent Myocardial Infarction Interpretation and review of laboratory results Normal [facility] CBC panel Auto (Bld)on 02-15 Erythrocyte distribution width (RBC) [Ratio] 13.8 % 11.5 - 15.0 % [facility] Hematocrit (Bld) [Volume fraction] 37.7 % Low 40.0 - 52.0 % [facility] Hemoglobin (Bld) [Mass/Vol] 12.4 g/dL Low 13.0 - 18.0 g/dL [facility] Interpretation and review of laboratory results Abnormal [facility] MCH (RBC) [Entitic mass] 30.7 pg 26.0 - 34.0 pg [facility] MCHC (RBC) [Mass/Vol] 32.9 % 30.5 - 36.0 % [facility] MCV (RBC) [Entitic vol] 93.3 fL 77.0 - 99.0 fL [facility] Platelet mean volume (Bld) [Entitic vol] 8.8 fL Low 9.0 - 12.7 fL [facility] Platelets (Bld) [#/Vol] 279 10*3/uL 140 - 440 10*3/uL [facility] RBC (Bld) [#/Vol] 4.04 10*6/uL Low 4.40 - 5.9 0 10*6/uL [facility] WBC (Bld) [#/Vol] 7.2 10*3/uL 3.6 - 10.7 10*3/uL [facility] Comprehensive metabolic 1998 panelon 02-16-2024 Albumin [Mass/Vol] 3.7 g/dL 3.5 - 5.0 g/dL [facility] ALP [Catalytic activity/Vol] 95 U/L 38 - 126 U/L [facility] ALT [Catalytic activity/Vol] 16 U/L 0 - 49 U/L [facility] Anion gap [Moles/Vol] 6 mmol/L 3 - 13 mmol/L [facility] AST [Catalytic activity/Vol] 30 U/L 15 - 46 U/L [facility] Bilirubin [Mass/Vol] 0.7 mg/dL 0.2 - 1 .3 mg/dL [facility] Calcium [Mass/Vol] 9.1 mg/dL 8.4 - 10. 4 mg/dL [facility] Chloride [Moles/Vol] 97 mmol/L Low 98 - 10 7 mmol/L [facility] CO2 [Moles/Vol] 30 mmol/L 22 - 30 mmol/L [facility] Creatinine [Mass/Vol] 0.72 mg/dL 0.66 - 1.25 mg/dL [facility] GFR/1.73 sq M.predicted MDRD (S/P/Bld) [Vol rate/Area] - PINF [facility] Comment on above: Calculation based on the Chronic Kidney Disease Epidemiology Collaboration (CKD-EPI) equation refit without adjustment for race Glucose [Mass/Vol] 101 mg/dL High 70 - 100 mg/dL [facility] Interpretation and review of laboratory results Abnormal [facility] Potassium [Moles/Vol] 4.2 mmol/L 3.5 - 5.1 mmol/L [facility] Protein [Mass/Vol] 7.0 g/dL 6.3 - 8.2 g/dL [facility] Sodium [Moles/Vol] 132 mmol/L Low 135 - 145 mmol/L [facility] Urea nitrogen [Mass/Vol] 20 mg/dL 9 - 20 mg/dL [facility] Laboratory - Chemistry and C hemistry - challengeon 02-16-2024 AFP.tumor marker [Mass/Vol] 2 ng/mL 0 - 9 ng/mL [facility] Comment on above: INTERPRETIVE INFORMA TION: Alpha Fetoprotein Tumor Marker The Joseph[employer] [place] Access DxI AFP method is used. Results obtained with different assay methods or kits cannot be used interchangeably. AFP is a valuable aid in the management of nonseminomatous testicular cancer patients when used in conjunction with information available from the clinical evaluation and other diagnostic procedures. Increased AFP concentrations have also been observed in ataxia telangiectasia, hereditary tyrosinemia, primary hepatocellular carcinoma, teratocarcinoma, gastrointestinal tract cancers with and without liver metastases, and in benign hepatic conditions such as acute viral hepatitis, chronic active hepatitis, and cirrhosis. The result cannot be interpreted as absolute evidence of the presence or absence of malignant disease. The result is not interpretable as a tumor marker in females. Access complete set of age- and/or gender-specific reference intervals for this test in the [employer] Test Directory ([employer]). Performed By: [employer] [address] [place] [id number] Reference And Instruction Librarian: Charlie Pantoja MD, PhD CLIA Number: [id number] Laboratory - Coagulationon 0 02-16-2024 PT Coag (Bld) [Time] 12.3 s High 9.0 - 12.0 s [facility] No Panel Informationon 02-15 [facility] PT Coag (Bld) [Time]on 02-15 INR Coag (PPP) [Relative time] 1.1 {INR} 0.9 - 1.1 [facility] Comment on above: Recommended Anticoag ulant Therapy: SEE BELOW ----- INR of 2.0 - 3.0 : - Prophylaxis of Venous Thrombosis (high-risk surgery) - Treatment of Venous Thrombosis - Treatment of Pulmonary Embolism (Includes tissue heart valves, Acute Myocardial Infarction to prevent systemic embolism, Valvular Heart Disease, and Atrial Fibrillation) ----- INR of 2.5 - 3.5 : - Mechanical Prosthetic Valves (high risk) - If oral anticoagulant therapy is used to prevent Myocardial Infarction Interpretation and review of laboratory results Abnormal [facility] CBC panel Auto (Bld)on 02-14 Erythrocyte distribution width (RBC) [Ratio] 13.9 % 11.5 - 15.0 % [facility] Hematocrit (Bld) [Volume fraction] 37.6 % Low 40.0 - 52.0 % [facility] Hemoglobin (Bld) [Mass/Vol] 12.9 g/dL Low 13.0 - 18.0 g/dL [facility] Interpretation and review of laboratory results Abnormal [facility] MCH (RBC) [Entitic mass] 31.5 pg 26.0 - 34.0 pg [facility] MCHC (RBC) [Mass/Vol] 34.3 % 30.5 - 36.0 % [facility] MCV (RBC) [Entitic vol] 91.7 fL 77.0 - 99.0 fL [facility] Platelet mean volume (Bld) [Entitic vol] 9.0 fL 9.0 - 12.7 fL [facility] Platelets (Bld) [#/Vol] 296 10*3/uL 140 - 440 10*3/uL [facility] RBC (Bld) [#/Vol] 4.10 10*6/uL Low 4.40 - 5.9 0 10*6/uL [facility] WBC (Bld) [#/Vol] 8.6 10*3/uL 3.6 - 10.7 10*3/uL [facility] CK.total/Creatine kinase.MB [Catalytic ratio]on 02-15-2024 CK [Catalytic activity/Vol] 110 U/L 30 - 170 U/L [facility] CK.MB [Mass/Vol] 4.1 ng/mL 0.0 - 4.4 ng/mL [facility] Interpretation and review of laboratory results Abnormal [facility] RELATIVE INDEX 3.7 High 0.0 - 3.0 [facility] Comprehensive metabolic 1998 panelon 02-15-2024 Albumin [Mass/Vol] 3.5 g/dL 3.5 - 5.0 g/dL [facility] ALP [Catalytic activity/Vol] 102 U/L 38 - 126 U/L [facility] ALT [Catalytic activity/Vol] 15 U/L 0 - 49 U/L [facility] Anion gap [Moles/Vol] 9 mmol/L 3 - 13 mmol/L [facility] AST [Catalytic activity/Vol] 33 U/L 15 - 46 U/L [facility] Bilirubin [Mass/Vol] 0.6 mg/dL 0.2 - 1 .3 mg/dL [facility] Calcium [Mass/Vol] 9.0 mg/dL 8.4 - 10. 4 mg/dL [facility] Chloride [Moles/Vol] 96 mmol/L Low 98 - 10 7 mmol/L [facility] CO2 [Moles/Vol] 29 mmol/L 22 - 30 mmol/L [facility] Creatinine [Mass/Vol] 0.78 mg/dL 0.66 - 1.25 mg/dL [facility] GFR/1.73 sq M.predicted MDRD (S/P/Bld) [Vol rate/Area] - PINF [facility] Comment on above: Calculation based on the Chronic Kidney Disease Epidemiology Collaboration (CKD-EPI) equation refit without adjustment for race Glucose [Mass/Vol] 89 mg/dL 70 - 100 mg/dL [facility] Interpretation and review of laboratory results Abnormal [facility] Potassium [Moles/Vol] 3.5 mmol/L 3.5 - 5.1 mmol/L [facility] Protein [Mass/Vol] 6.7 g/dL 6.3 - 8.2 g/dL [facility] Sodium [Moles/Vol] 134 mmol/L Low 135 - 145 mmol/L [facility] Urea nitrogen [Mass/Vol] 18 mg/dL 9 - 20 mg/dL [facility] Laboratory - Chemistry and C hemistry - challengeon 02-15-2024 Magnesium [Mass/Vol] 1.8 mg/dL 1.6 - 2 .3 mg/dL [facility] Laboratory - Coagulationon 0 02-15-2024 PT Coag (Bld) [Time] 17.2 s High 9.0 - 12.0 s [facility] Magnesium [Mass/Vol]on 02-14 Interpretation and review of laboratory results Normal [facility] PT Coag (Bld) [Time]on 02-14 INR Coag (PPP) [Relative time] 1.7 {INR} High 0.9 - 1.1 [facility] Comment on above: Recommended Anticoag ulant Therapy: SEE BELOW ----- INR of 2.0 - 3.0 : - Prophylaxis of Venous Thrombosis (high-risk surgery) - Treatment of Venous Thrombosis - Treatment of Pulmonary Embolism (Includes tissue heart valves, Acute Myocardial Infarction to prevent systemic embolism, Valvular Heart Disease, and Atrial Fibrillation) ----- INR of 2.5 - 3.5 : - Mechanical Prosthetic Valves (high risk) - If oral anticoagulant therapy is used to prevent Myocardial Infarction Interpretation and review of laboratory results Abnormal [facility] CBC panel Auto (Bld)on 02-13 Erythrocyte distribution width (RBC) [Ratio] 13.7 % 11.5 - 15.0 % [facility] Hematocrit (Bld) [Volume fraction] 37.6 % Low 40.0 - 52.0 % [facility] Hemoglobin (Bld) [Mass/Vol] 13.0 g/dL 13.0 - 18.0 g/dL [facility] Interpretation and review of laboratory results Abnormal [facility] MCH (RBC) [Entitic mass] 31.3 pg 26.0 - 34.0 pg [facility] MCHC (RBC) [Mass/Vol] 34.6 % 30.5 - 36.0 % [facility] MCV (RBC) [Entitic vol] 90.4 fL 77.0 - 99.0 fL [facility] Platelet mean volume (Bld) [Entitic vol] 9.6 fL 9.0 - 12.7 fL [facility] Platelets (Bld) [#/Vol] 311 10*3/uL 140 - 440 10*3/uL [facility] RBC (Bld) [#/Vol] 4.16 10*6/uL Low 4.40 - 5.9 0 10*6/uL [facility] WBC (Bld) [#/Vol] 10.2 10*3/uL 3.6 - 10.7 10*3/uL [facility] Comprehensive metabolic 1998 panelon 02-14-2024 Albumin [Mass/Vol] 3.9 g/dL 3.5 - 5.0 g/dL [facility] ALP [Catalytic activity/Vol] 104 U/L 38 - 126 U/L [facility] ALT [Catalytic activity/Vol] 16 U/L 0 - 49 U/L [facility] Anion gap [Moles/Vol] 11 mmol/L 3 - 13 mmol/L [facility] AST [Catalytic activity/Vol] 39 U/L 15 - 46 U/L [facility] Bilirubin [Mass/Vol] 0.6 mg/dL 0.2 - 1 .3 mg/dL [facility] Calcium [Mass/Vol] 9.7 mg/dL 8.4 - 10. 4 mg/dL [facility] Chloride [Moles/Vol] 98 mmol/L 98 - 10 7 mmol/L [facility] CO2 [Moles/Vol] 26 mmol/L 22 - 30 mmol/L [facility] Creatinine [Mass/Vol] 0.59 mg/dL Low 0.66 - 1.25 mg/dL [facility] GFR/1.73 sq M.predicted MDRD (S/P/Bld) [Vol rate/Area] - PINF [facility] Comment on above: Calculation based on the Chronic Kidney Disease Epidemiology Collaboration (CKD-EPI) equation refit without adjustment for race Glucose [Mass/Vol] 105 mg/dL High 70 - 100 mg/dL [facility] Interpretation and review of laboratory results Abnormal [facility] Potassium [Moles/Vol] 4.0 mmol/L 3.5 - 5.1 mmol/L [facility] Protein [Mass/Vol] 7.3 g/dL 6.3 - 8.2 g/dL [facility] Sodium [Moles/Vol] 135 mmol/L 135 - 145 mmol/L [facility] Urea nitrogen [Mass/Vol] 7 mg/dL Low 9 - 20 mg/dL [facility] Folate [Mass/Vol]on 02-14-20 Interpretation and review of laboratory results Normal [facility] Laboratory - Chemistry and C hemistry - challengeon 02-14-2024 Cobalamin (Vitamin B12) [Mass/Vol] 423 pg/mL 239 - 931 pg/mL [facility] Folate [Mass/Vol] ng/mL 2.9 - PINF ng/mL [facility] TSH Qn 0.545 m[IU]/L [facility] Magnesium [Mass/Vol] 1.6 mg/dL 1.6 - 2 .3 mg/dL [facility] Average glucose Estimated from glycated hemoglobin (Bld) [Mass/Vol] 123 mg/dL [facility] Folate [Mass/Vol] ng/mL 2.9 - PINF ng/mL [facility] Troponin I.cardiac [Mass/Vol] 0.025 ng/mL NINF - 0.034 ng/mL [facility] Laboratory - CoagulationOrde red By: Mario Alberto Wilder on 02-14-2024 PT Coag (Bld) [Time] 63.4 s High 9.0 - 12.0 s [facility] Laboratory - Hematology and Cell countson 02-14-2024 HbA1c (Bld) [Mass fraction] 5.9 % High NINF - 5.7 % [facility] Comment on above: Normal less than 5.7 % Prediabetes 5.7% to 6.4% Diabetes 6.5% or higher --HgbA1C levels may not be accurate in patients who have renal disease, received recent blood transfusions, are anemic, or who have dyshemoglobinemia. Lipid 1996 panelon Cholesterol [Mass/Vol] 99 mg/dL NINF - 200 mg/dL [facility] Cholesterol in HDL [Mass/Vol] 53 mg/dL 40 - 60 mg/dL [facility] Cholesterol in LDL [Mass/Vol] 33 mg/dL 0 - <100 [facility] Cholesterol.total/Chelo sterol in HDL [Mass ratio] 2 {ratio} [facility] Comment on above: Ref Range: < 3 Low Risk for CHD 3-6 Mod Risk for CHD > 6 High Risk for CHD Triglyceride [Mass/Vol] 64 mg/dL NINF - 150 mg/dL [facility] No Panel Informationon 02-13 Interpretation and review of laboratory results Normal [facility] Atrial fibrillation Ventricular premature complex Left bundle branch block Electronically Signed On 02-14-2024 16:39:24 EDT by Alek Godoy CV Alek Echevarria MD - 02/14/2024 IMPRESSION: Atrial fibrillation Ventricular premature complex Left bundle branch block Electronically Signed On 02-14-2024 16:39:24 EDT by Alek Godoy [employer] Interpretation and review of laboratory results Normal [employer] Interpretation and review of laboratory results Abnormal [employer] No Panel InformationOrdered By: Alek Godoy on 02-14-2024 P [place] 0 degrees [employer] Work Phone: VA Interval 0 ms [employer] Phone: QRS [place] -58 degrees [employer] Work Phone: QRSD Interval 181 ms [employer] Work Phone: [phone] QT Interval 455 ms [employer] Work Phone: [phone] QTC Interval 522 ms [employer] Phone: [phone] T Wave [place] 105 degrees [employer] Work Phone: [phone] [employer] Work Phone: PT Coag (Bld) [Time]Ordered By: Mario Alberto Wilder on 02-14-2024 INR Coag (PPP) [Relative time] 6.9 {INR} Critically high 0.9 - 1.1 [employer] Comment on above: Recommended Anticoag ulant Therapy: SEE BELOW ----- INR of 2.0 - 3.0 : - Prophylaxis of Venous Thrombosis (high-risk surgery) - Treatment of Venous Thrombosis - Treatment of Pulmonary Embolism (Includes tissue heart valves, Acute Myocardial Infarction to prevent systemic embolism, Valvular Heart Disease, and Atrial Fibrillation) ----- INR of 2.5 - 3.5 : - Mechanical Prosthetic Valves (high risk) - If oral anticoagulant therapy is used to prevent Myocardial Infarction Interpretation and review of laboratory results Abnormal [employer] Phosphate [Moles/Vol]on 01-31 Phosphate [Mass/Vol] 3.9 mg/dL 2.5 - 4 .5 mg/dL [employer] TSH Qnon 02-14-2024 Interpretation and review of laboratory results Normal [facility] Troponin I.cardiac [Mass/Vol ]on 02-14-2024 Interpretation and review of laboratory results Normal [facility] Patients with high levels of Biotin oral intake (ie >5 mg/day) may have falsely decreased Troponin levels. [facility] Vital signsOrdered By: Alek Godoy on 02-14-2024 Heart rate 79 /min bpm [facility] [employer] Work Phone: CBC W Auto Differential pane l (Bld)on 02-13-2024 Basophils (Bld) [#/Vol] 0.1 10*3/uL 0.0 - 0.2 10*3/uL [facility] Basophils/100 WBC (Bld) 0.8 % 0.0 - 2.0 % [facility] Eosinophils (Bld) [#/Vol] 0.2 10*3/uL 0.0 - 0.5 10*3/uL [facility] Eosinophils/100 WBC (Bld) 2.0 % 0.0 - 6.0 % [facility] Erythrocyte distribution width (RBC) [Ratio] 13.5 % 11.5 - 15.0 % [facility] Hematocrit (Bld) [Volume fraction] 37.0 % Low 40.0 - 52.0 % [facility] Hemoglobin (Bld) [Mass/Vol] 12.8 g/dL Low 13.0 - 18.0 g/dL [facility] Immature granulocytes (Bld) [#/Vol] 0.0 10*3/uL NINF - 0.1 10*3/uL [facility] Immature granulocytes/100 WBC (Bld) 0.4 % 0.0 - 2.0 % [facility] Interpretation and review of laboratory results Abnormal [facility] Lymphocytes (Bld) [#/Vol] 1.1 10*3/uL 1.0 - 4.3 10*3/uL [facility] Lymphocytes/100 WBC (Bld) 10.6 % Low 15.0 - 45.0 % [facility] MCH (RBC) [Entitic mass] 31.0 pg 26.0 - 34.0 pg [facility] MCHC (RBC) [Mass/Vol] 34.6 % 30.5 - 36.0 % [facility] MCV (RBC) [Entitic vol] 89.6 fL 77.0 - 99.0 fL [employer] [facility] [employer] Monocytes (Bld) [#/Vol] 0.7 10*3/uL 0.0 - 0.9 10*3/uL [facility] [facility] [employer] Monocytes/100 WBC (Bld) 7.3 % 5.0 - 13.0 % [facility] [employer] Neutrophils (Bld) [#/Vol] 8.0 10*3/uL High 1.8 - 7.5 10*3/uL [facility] [facility] [employer] Neutrophils/100 WBC (Bld) 78.9 % 38.0 - 82.0 % [facility] [facility] [employer] Nucleated RBC/100 WBC (Bld) [Ratio] 0.0 % [facility] [facility] [employer] Platelet mean volume (Bld) [Entitic vol] 9.1 fL 9.0 - 12.7 fL [facility] [employer] Platelets (Bld) [#/Vol] 299 10*3/uL 140 - 440 10*3/uL [facility] [employer] RBC (Bld) [#/Vol] 4.13 10*6/uL Low 4.40 - 5.9 0 10*6/uL [facility] [employer] WBC (Bld) [#/Vol] 10.1 10*3/uL 3.6 - 10.7 10*3/uL [facility] CT Head WO contraston [address] evidence of an acute intracranial abnormality. Report Dictated on Electronically Signed By: Guillermo Boone MD Electronically Signed Date/Time: 02/13/2024 6:46 PM [facility] EM[facility]GENC[facility]PART[facility] RADIOLOGY SYSTEM [facility] KRYST[facility]CH [facility] 1955 [id number] Exam Date/Time: 02/13/2024 18:20 Procedure: CT HEAD WO IV CONTRAST Ordering Provider: AVERY JOSEPH Reason For Exam: Neuro deficit, acute, stroke suspected EXAMINATION: CT HEAD WO IV CONTRAST HISTORY: Neuro deficit, acute, stroke suspected. Numbness of the right hand. TECHNIQUE: CT head without contrast. Dose reduction was employed with automated exposure control. COMPARISON: Head CT 12/29/2022 RESULT: Acute change: No evidence of an acute intracranial process. Hemorrhage: No evidence of acute intracranial hemorrhage. Mass Lesion / Mass Effect: No evidence of an intracranial mass, extra-axial fluid collection, or significant localized mass effect. Mild prominence of CSF attenuation at the right frontal convexity is similar to prior exam and likely due to volume loss. Chronic change: Scattered patchy foci of low attenuation are present within supratentorial white matter which is a nonspecific finding but likely represents mild microvascular ischemia. Atherosclerotic calcifications of the carotid siphons and vertebral arteries. Parenchyma: There is mild generalized volume loss. Ventricles: Normal caliber and morphology. Other: The calvarium, skull base, imaged paranasal sinuses, mastoids, orbits and extracranial soft tissues are unremarkable. [facility] RADIOLOGY SYSTEM Guillermo Boone MD - 02/13/2024 Patient Name: KRYSTINA [facility]KHAM : 1955 [id number] Exam Date/Time: 02/13/2024 18:20 Procedure: CT HEAD WO IV CONTRAST Ordering Provider: AVERY JOSEPH Reason For Exam: Neuro deficit, acute, stroke suspected EXAMINATION: CT HEAD WO IV CONTRAST HISTORY: Neuro deficit, acute, stroke suspected. Numbness of the right hand. TECHNIQUE: CT head without contrast. Dose reduction was employed with automated exposure control. COMPARISON: Head CT 12/29/2022 RESULT: Acute change: No evidence of an acute intracranial process. Hemorrhage: No evidence of acute intracranial hemorrhage. Mass Lesion / Mass Effect: No evidence of an intracranial mass, extra-axial fluid collection, or significant localized mass effect. Mild prominence of CSF attenuation at the right frontal convexity is similar to prior exam and likely due to volume loss. Chronic change: Scattered patchy foci of low attenuation are present within supratentorial white matter which is a nonspecific finding but likely represents mild microvascular ischemia. Atherosclerotic calcifications of the carotid siphons and vertebral arteries. Parenchyma: There is mild generalized volume loss. Ventricles: Normal caliber and morphology. Other: The calvarium, skull base, imaged paranasal sinuses, mastoids, orbits and extracranial soft tissues are unremarkable. IMPRESSION: No CT evidence of an acute intracranial abnormality. Report Dictated on Electronically Signed By: Guillermo Boone MD Electronically Signed Date/Time: 02/13/2024 6:46 PM EDT [facility] [employer] Radiology Study observation (narrative) [facility] CT Head WO contrastOrdered B y: Guillermo Boone on 02-13-2024 [facility] Work Phone: Comprehensive metabolic 1998 panelon 02-13-2024 Albumin [Mass/Vol] 4.0 g/dL 3.5 - 5.0 g/dL [facility] ALP [Catalytic activity/Vol] 119 U/L 38 - 126 U/L [facility] ALT [Catalytic activity/Vol] 16 U/L 0 - 49 U/L [facility] Anion gap [Moles/Vol] 13 mmol/L 3 - 13 mmol/L [facility] AST [Catalytic activity/Vol] 32 U/L 15 - 46 U/L [facility] Bilirubin [Mass/Vol] 0.6 mg/dL 0.2 - 1 .3 mg/dL [facility] Calcium [Mass/Vol] 9.8 mg/dL 8.4 - 10. 4 mg/dL [facility] Chloride [Moles/Vol] 97 mmol/L Low 98 - 10 7 mmol/L [facility] CO2 [Moles/Vol] 23 mmol/L 22 - 30 mmol/L [facility] Creatinine [Mass/Vol] 0.57 mg/dL Low 0.66 - 1.25 mg/dL [facility] GFR/1.73 sq M.predicted MDRD (S/P/Bld) [Vol rate/Area] - PINF [facility] Comment on above: Calculation based on the Chronic Kidney Disease Epidemiology Collaboration (CKD-EPI) equation refit without adjustment for race Glucose [Mass/Vol] 99 mg/dL 70 - 100 mg/dL [facility] Interpretation and review of laboratory results Abnormal [facility] Potassium [Moles/Vol] 4.0 mmol/L 3.5 - 5.1 mmol/L [facility] Protein [Mass/Vol] 7.6 g/dL 6.3 - 8.2 g/dL [facility] Sodium [Moles/Vol] 133 mmol/L Low 135 - 145 mmol/L [facility] Urea nitrogen [Mass/Vol] 6 mg/dL Low 9 - 20 mg/dL [facility] Ethanol (Bld) [Mass/Vol]on 0 02-13-2024 Ethanol [Mass/Vol] g/dL 0.000 - 0.010 g/dL [facility] Comment on above: This sample may have been collected by using an alcohol pad to swab the skin. Ethanol-containing antiseptics before venipuncture may not be causes of spurious or false positive results of alcohol measurement at least when ideal venipunctures can be performed. However, under non-ideal collection conditions, alcohol contamination is a possibility. Results to be correlated clinically. Interpretation and review of laboratory results Normal [facility] Laboratory - Chemistry and C hemistry - challengeon 02-13-2024 Troponin I.cardiac [Mass/Vol] 0.026 ng/mL NINF - 0.034 ng/mL [facility] Troponin I.cardiac [Mass/Vol] 0.023 [facility] Glucose [Mass/Vol] 110 mg/dL High 70 - 100 mg/dL [facility] Laboratory - Chemistry and C hemistry - challengeOrdered By: Sarah Pope on 02-13-2024 Glucose [Mass/Vol] 110 mg/dL [facility] Laboratory - CoagulationOrde red By: Susan Quan on 02-13-2024 aPTT Coag (PPP) [Time] 58.1 s High 20.0 - 30.5 s [facility] INR Coag (PPP) [Relative time] 5.4 {INR} Critically high 0.9 - 1.1 [facility] Comment on above: Recommended Anticoag ulant Therapy: SEE BELOW ----- INR of 2.0 - 3.0 : - Prophylaxis of Venous Thrombosis (high-risk surgery) - Treatment of Venous Thrombosis - Treatment of Pulmonary Embolism (Includes tissue heart valves, Acute Myocardial Infarction to prevent systemic embolism, Valvular Heart Disease, and Atrial Fibrillation) ----- INR of 2.5 - 3.5 : - Mechanical Prosthetic Valves (high risk) - If oral anticoagulant therapy is used to prevent Myocardial Infarction PT Coag (Bld) [Time] 50.8 s High 9.0 - 12.0 s [facility] Natriuretic peptide B [Mass/ Vol]on 02-13-2024 Interpretation and review of laboratory results Abnormal [facility] Natriuretic peptide B (Bld) [Mass/Vol] 5900 pg/mL High <20 - 300 [facility] No Panel Informationon 02-12 Heart Rate 87 bpm [facility] P [place] 0 degrees [facility] VA Interval 0 ms [facility] QRS [place] 58 degrees [facility] QRSD Interval 165 ms [facility] QT Interval 442 ms [facility] QTC Interval 564 ms [facility] T Wave [place] 59 degrees [facility] Atrial fibrillation Paired ventricular premature complexes Left bundle branch block ST elevation secondary to IVCD Electronically Signed On 02-13-2024 22:20:38 EDT by Ronnie Roldan, DO - 02/13/2024 IMPRESSION: Atrial fibrillation Paired ventricular premature complexes Left bundle branch block ST elevation secondary to IVCD Electronically Signed On 02-13-2024 22:20:38 EDT by Ronnei Avery [facility] Interpretation and review of laboratory results Abnormal [facility]formed by: [facility], [address] [place] [address] CLIA ID: [id number] [facility] Radiology Study observation (narrative) [facility] No Panel InformationOrdered By: Susan Quan on 02-13-2024 Interpretation and review of laboratory results Abnormal [facility] No Panel InformationOrdered By: Sarah Pope on 02-13-2024 Interpretation and review of laboratory results Normal [facility] Radiology Study observation (narrative) [facility] Troponin I.cardiac [Mass/Vol ]on 02-13-2024 Interpretation and review of laboratory results Normal [facility] Patients with high levels of Biotin oral intake (ie >5 mg/day) may have falsely decreased Troponin levels. [facility] Interpretation and review of laboratory results Normal [facility] Patients with high levels of Biotin oral intake (ie >5 mg/day) may have falsely decreased Troponin levels. [facility] US Abdomen limitedon 024 1. Gallbladder distention without apparent cholelithiasis. 2. Findings which may represent fatty infiltration in the liver versus nonspecific hepatocellular disease, including cirrhotic change. Correlation with appropriate laboratory values and follow-up suggested. 3. Small right renal cyst. Report Dictated on Electronically Signed By: Alirio Gamboa MD Electronically Signed Date/Time: 02/13/2024 11:02 PM EDT [employer] RADIOLOGY SYSTEM Patient Name: KRYSTINA LYNCH : 1955 Exam Date/Time: 02/13/2024 22:35 Procedure: US ABDOMEN LIMITED Ordering Provider: AVERY JOSEPH Reason For Exam: assess for cirrhosis ULTRASOUND OF RIGHT UPPER QUADRANT CLINICAL INDICATION: assess for cirrhosis TECHNIQUE: Real-time ultrasound of the right upper quadrant of the abdomen. COMPARISON: None. FINDINGS: Gallbladder mildly distended measuring up to 10 cm in length without evidence of calculi. Wall thickness within normal limits. Intra-and extrahepatic bile ducts are of normal caliber. Negative sonographic Wright's sign. Liver has mildly coarsened and heterogeneous echogenicity and slightly nodular margins without focal abnormalities. Right kidney measures 11.2 cm in longest dimension and demonstrates small cyst in the upper pole measuring approximately 1 cm. No significant hydronephrosis. Limited visualized pancreatic parenchyma grossly unremarkable. [facility] RADIOLOGY SYSTEM Alirio Gamboa MD - 02/13/2024 Patient Name: KRYSTINA MARKHAM : 1955 [id number] Exam Date/Time: 02/13/2024 22:35 Procedure: US ABDOMEN LIMITED Ordering Provider: AVERY JOSEPH Reason For Exam: assess for cirrhosis ULTRASOUND OF RIGHT UPPER QUADRANT CLINICAL INDICATION: assess for cirrhosis TECHNIQUE: Real-time ultrasound of the right upper quadrant of the abdomen. COMPARISON: None. FINDINGS: Gallbladder mildly distended measuring up to 10 cm in length without evidence of calculi. Wall thickness within normal limits. Intra-and extrahepatic bile ducts are of normal caliber. Negative sonographic Wright's sign. Liver has mildly coarsened and heterogeneous echogenicity and slightly nodular margins without focal abnormalities. Right kidney measures 11.2 cm in longest dimension and demonstrates small cyst in the upper pole measuring approximately 1 cm. No significant hydronephrosis. Limited visualized pancreatic parenchyma grossly unremarkable. IMPRESSION: 1. Gallbladder distention without apparent cholelithiasis. 2. Findings which may represent fatty infiltration in the liver versus nonspecific hepatocellular disease, including cirrhotic change. Correlation with appropriate laboratory values and follow-up suggested. 3. Small right renal cyst. Report Dictated on Electronically Signed By: Alirio Gamboa MD Electronically Signed Date/Time: 02/13/2024 11:02 PM EDT [facility] Radiology Study observation (narrative) [facility] XR Cervical spine 2 or 3 Vie wson 02-13-2024 1. No acute osseous abnormality, with limited visualization of cervicothoracic junction. 2. Mild degenerative change. Report Dictated on Electronically Signed By: Alirio Gamboa MD Electronically Signed Date/Time: 02/13/2024 10:05 PM EDT [facility] Patient Name: KRYSTINA LYNCH : 1955 Exam Date/Time: 02/13/2024 22:01 Procedure: XR CERVICAL SPINE 2-3 VIEWS Ordering Provider: AVERY JOSEPH Reason For Exam: SHOULDER PAIN CERVICAL SPINE 3 VIEWS CLINICAL INDICATION: SHOULDER PAIN TECHNIQUE: 4 views of the cervical spine. COMPARISON: None. FINDINGS: No acute loss of height or gross malalignment of C1-C6 vertebral bodies. Visualization of C7-T1 level somewhat limited on lateral attempts. No osseous destruction. Visualized disc spaces maintained. Mild endplate degenerative change in the C5-C6 level and mild facet sclerosis. Prevertebral soft tissues grossly unremarkable. [facility] Alirio Gamboa MD - 02/13/2024 Patient Name: KRYSTINA MARKHAM : 1955 Exam Date/Time: 02/13/2024 22:01 Procedure: XR CERVICAL SPINE 2-3 VIEWS Ordering Provider: AVERY JOSEPH Reason For Exam: SHOULDER PAIN CERVICAL SPINE 3 VIEWS CLINICAL INDICATION: SHOULDER PAIN TECHNIQUE: 4 views of the cervical spine. COMPARISON: None. FINDINGS: No acute loss of height or gross malalignment of C1-C6 vertebral bodies. Visualization of C7-T1 level somewhat limited on lateral attempts. No osseous destruction. Visualized disc spaces maintained. Mild endplate degenerative change in the C5-C6 level and mild facet sclerosis. Prevertebral soft tissues grossly unremarkable. IMPRESSION: 1. No acute osseous abnormality, with limited visualization of cervicothoracic junction. 2. Mild degenerative change. Report Dictated on Electronically Signed By: Alirio Gamboa MD Electronically Signed Date/Time: 02/13/2024 10:05 PM EDT [facility] Radiology Study observation (narrative) [facility] XR Shoulder - right 2 Viewso n 02-13-2024 1. No acute osseous abnormality. 2. Degenerative change, and retained soft tissue foreign body. Report Dictated on Electronically Signed By: Alirio Gamboa MD Electronically Signed Date/Time: 02/13/2024 6:38 PM EDT [facility] Patient Name: KRYSTINA LYNCH : 1955 Exam Date/Time: 02/13/2024 18:15 Procedure: XR SHOULDER 2+ VIEWS RIGHT Ordering Provider: AVERY JOSEPH Reason For Exam: shoulder pain RIGHT SHOULDER 3 VIEWS CLINICAL INDICATION: shoulder pain TECHNIQUE: 3 views of the right shoulder. COMPARISON: None. FINDINGS: Diffuse osteopenia. No acute fracture or dislocation. Degenerative change in the glenohumeral and AC joints. Subchondral cystic change underlying the humeral head greater tuberosity. Metallic BB density projects in the posterior soft tissues. Remainder of soft tissues grossly unremarkable. [facility] Alirio Gamboa MD - 02/13/2024 Patient Name: KRYSTINA MARKHAM : 1955 Exam Date/Time: 02/13/2024 18:15 Procedure: XR SHOULDER 2+ VIEWS RIGHT Ordering Provider: AVERY JOSEPH Reason For Exam: shoulder pain RIGHT SHOULDER 3 VIEWS CLINICAL INDICATION: shoulder pain TECHNIQUE: 3 views of the right shoulder. COMPARISON: None. FINDINGS: Diffuse osteopenia. No acute fracture or dislocation. Degenerative change in the glenohumeral and AC joints. Subchondral cystic change underlying the humeral head greater tuberosity. Metallic BB density projects in the posterior soft tissues. Remainder of soft tissues grossly unremarkable. IMPRESSION: 1. No acute osseous abnormality. 2. Degenerative change, and retained soft tissue foreign body. Report Dictated on Electronically Signed By: Alirio Gamboa MD Electronically Signed Date/Time: 02/13/2024 6:38 PM EDT [facility] [employer] Radiology Study observation (narrative) [employer] XR Shoulder - right 2 ViewsO rdered By: Alirio Gamboa on 02-13-2024 [employer] [facility] [employer] Work Phone: CBC W Auto Differential pane l (Bld)on 11-14-2023 Basophils (Bld) [#/Vol] 0.0 10*3/uL 0.0 - 0.2 10*3/uL [facility] [employer] Basophils/100 WBC (Bld) 0.2 % 0.0 - 2.0 % [facility] [employer] Eosinophils (Bld) [#/Vol] 0.1 10*3/uL 0.0 - 0.5 10*3/uL [facility] [facility] [employer] Eosinophils/100 WBC (Bld) 0.8 % 0.0 - 6.0 % [facility] [employer] Erythrocyte distribution width (RBC) [Ratio] 13.6 % 11.5 - 15.0 % [facility] [employer] Hematocrit (Bld) [Volume fraction] 41.5 % 40.0 - 52.0 % [facility] [employer] Hemoglobin (Bld) [Mass/Vol] 13.9 g/dL 13.0 - 18.0 g/dL [facility] [employer] Immature granulocytes (Bld) [#/Vol] 0.2 10*3/uL High NINF - 0.1 10*3/uL [facility] [facility] [employer] Immature granulocytes/100 WBC (Bld) 2.3 % High 0.0 - 2.0 % [facility] [employer] Interpretation and review of laboratory results Abnormal [facility] [employer] Lymphocytes (Bld) [#/Vol] 1.4 10*3/uL 1.0 - 4.3 10*3/uL [facility] [employer] Lymphocytes/100 WBC (Bld) 15.1 % 15.0 - 45.0 % [facility] [facility] MCH (RBC) [Entitic mass] 31.0 pg 26.0 - 34.0 pg [facility] MCHC (RBC) [Mass/Vol] 33.5 % 30.5 - 36.0 % [facility] MCV (RBC) [Entitic vol] 92.6 fL 77.0 - 99.0 fL [facility] Monocytes (Bld) [#/Vol] 1.0 10*3/uL High 0.0 - 0.9 10*3/uL [facility] Monocytes/100 WBC (Bld) 11.1 % 5.0 - 13.0 % [facility] Neutrophils (Bld) [#/Vol] 6.3 10*3/uL 1.8 - 7.5 10*3/uL [facility] Neutrophils/100 WBC (Bld) 70.5 % 38.0 - 82.0 % [facility] Nucleated RBC/100 WBC (Bld) [Ratio] 0.0 % [facility] Platelet mean volume (Bld) [Entitic vol] 9.0 fL 9.0 - 12.7 fL [facility] Platelets (Bld) [#/Vol] 241 10*3/uL 140 - 440 10*3/uL [facility] RBC (Bld) [#/Vol] 4.48 10*6/uL 4.40 - 5.9 0 10*6/uL [facility] WBC (Bld) [#/Vol] 9.0 10*3/uL 3.6 - 10.7 10*3/uL [facility] Comprehensive metabolic 1998 panelon 11-14-2023 Albumin [Mass/Vol] 3.3 g/dL Low 3.5 - 5.0 g/dL [facility] ALP [Catalytic activity/Vol] 149 U/L High 38 - 126 U/L [facility] ALT [Catalytic activity/Vol] 31 U/L 0 - 49 U/L [facility] Anion gap [Moles/Vol] 5 mmol/L 3 - 13 mmol/L [facility] AST [Catalytic activity/Vol] 46 U/L 15 - 46 U/L [facility] Bilirubin [Mass/Vol] 0.7 mg/dL 0.2 - 1 .3 mg/dL [facility] Calcium [Mass/Vol] 9.3 mg/dL 8.4 - 10. 4 mg/dL [facility] Chloride [Moles/Vol] 92 mmol/L Low 98 - 10 7 mmol/L [facility] CO2 [Moles/Vol] 32 mmol/L High 22 - 30 mmol/L [facility] Creatinine [Mass/Vol] 0.67 mg/dL 0.66 - 1.25 mg/dL [facility] GFR/1.73 sq M.predicted MDRD (S/P/Bld) [Vol rate/Area] - PINF [facility] Comment on above: Calculation based on the Chronic Kidney Disease Epidemiology Collaboration (CKD-EPI) equation refit without adjustment for race Glucose [Mass/Vol] 103 mg/dL High 70 - 100 mg/dL [facility] Interpretation and review of laboratory results Abnormal [facility] Potassium [Moles/Vol] 3.7 mmol/L 3.5 - 5.1 mmol/L [facility] Protein [Mass/Vol] 6.6 g/dL 6.3 - 8.2 g/dL [facility] Sodium [Moles/Vol] 130 mmol/L Low 135 - 145 mmol/L [facility] Urea nitrogen [Mass/Vol] 25 mg/dL High 9 - 20 mg/dL [facility] Natriuretic peptide B [Mass/ Vol]on 11-14-2023 Interpretation and review of laboratory results Abnormal [facility] Natriuretic peptide B (Bld) [Mass/Vol] 9630 pg/mL High <20 - 300 [facility] CBC W Auto Differential pane l (Bld)on 11-13-2023 Basophils (Bld) [#/Vol] 0.0 10*3/uL 0.0 - 0.2 10*3/uL [facility] Basophils/100 WBC (Bld) 0.1 % 0.0 - 2.0 % [facility] Eosinophils (Bld) [#/Vol] 0.1 10*3/uL 0.0 - 0.5 10*3/uL [facility] Eosinophils/100 WBC (Bld) 0.5 % 0.0 - 6.0 % [facility] Erythrocyte distribution width (RBC) [Ratio] 13.3 % 11.5 - 15.0 % [facility] Hematocrit (Bld) [Volume fraction] 40.2 % 40.0 - 52.0 % [facility] Hemoglobin (Bld) [Mass/Vol] 13.7 g/dL 13.0 - 18.0 g/dL [facility] Immature granulocytes (Bld) [#/Vol] 0.2 10*3/uL High NINF - 0.1 10*3/uL [facility] Immature granulocytes/100 WBC (Bld) 1.6 % 0.0 - 2.0 % [facility] Interpretation and review of laboratory results Abnormal [facility] Lymphocytes (Bld) [#/Vol] 1.1 10*3/uL 1.0 - 4.3 10*3/uL [facility] Lymphocytes/100 WBC (Bld) 10.8 % Low 15.0 - 45.0 % [facility] MCH (RBC) [Entitic mass] 30.4 pg 26.0 - 34.0 pg [facility] MCHC (RBC) [Mass/Vol] 34.1 % 30.5 - 36.0 % [facility] MCV (RBC) [Entitic vol] 89.3 fL 77.0 - 99.0 fL [facility] Monocytes (Bld) [#/Vol] 1.0 10*3/uL High 0.0 - 0.9 10*3/uL [facility] Monocytes/100 WBC (Bld) 9.9 % 5.0 - 13.0 % [facility] Neutrophils (Bld) [#/Vol] 7.9 10*3/uL High 1.8 - 7.5 10*3/uL [facility] Neutrophils/100 WBC (Bld) 77.1 % 38.0 - 82.0 % [facility] Nucleated RBC/100 WBC (Bld) [Ratio] 0.0 % [facility] Platelet mean volume (Bld) [Entitic vol] 8.9 fL Low 9.0 - 12.7 fL [facility] Platelets (Bld) [#/Vol] 245 10*3/uL 140 - 440 10*3/uL [facility] RBC (Bld) [#/Vol] 4.50 10*6/uL 4.40 - 5.9 0 10*6/uL [facility] WBC (Bld) [#/Vol] 10.2 10*3/uL 3.6 - 10.7 10*3/uL [facility] Comprehensive metabolic 1998 panelon 11-13-2023 Albumin [Mass/Vol] 3.2 g/dL Low 3.5 - 5.0 g/dL [facility] ALP [Catalytic activity/Vol] 124 U/L 38 - 126 U/L [facility] ALT [Catalytic activity/Vol] 23 U/L 0 - 49 U/L [facility] Anion gap [Moles/Vol] 5 mmol/L 3 - 13 mmol/L [facility] AST [Catalytic activity/Vol] 41 U/L 15 - 46 U/L [facility] Bilirubin [Mass/Vol] 0.8 mg/dL 0.2 - 1 .3 mg/dL [facility] Calcium [Mass/Vol] 9.0 mg/dL 8.4 - 10. 4 mg/dL [facility] Chloride [Moles/Vol] 90 mmol/L Low 98 - 10 7 mmol/L [facility] CO2 [Moles/Vol] 32 mmol/L High 22 - 30 mmol/L [facility] Creatinine [Mass/Vol] 0.55 mg/dL Low 0.66 - 1.25 mg/dL [facility] GFR/1.73 sq M.predicted MDRD (S/P/Bld) [Vol rate/Area] - PINF [facility] Comment on above: Calculation based on the Chronic Kidney Disease Epidemiology Collaboration (CKD-EPI) equation refit without adjustment for race Glucose [Mass/Vol] 146 mg/dL High 70 - 100 mg/dL [facility] Interpretation and review of laboratory results Abnormal [facility] Potassium [Moles/Vol] 3.8 mmol/L 3.5 - 5.1 mmol/L [facility] Protein [Mass/Vol] 6.7 g/dL 6.3 - 8.2 g/dL [facility] Sodium [Moles/Vol] 128 mmol/L Low 135 - 145 mmol/L [facility] Urea nitrogen [Mass/Vol] 17 mg/dL 9 - 20 mg/dL [facility] Ethanol (Bld) [Mass/Vol]on 0 11-12-2023 Ethanol [Mass/Vol] g/dL 0.000 - 0.010 g/dL [facility] Comment on above: This sample may have been collected by using an alcohol pad to swab the skin. Ethanol-containing antiseptics before venipuncture may not be causes of spurious or false positive results of alcohol measurement at least when ideal venipunctures can be performed. However, under non-ideal collection conditions, alcohol contamination is a possibility. Results to be correlated clinically. Interpretation and review of laboratory results Normal [facility] Laboratory - Chemistry and C hemistry - challengeon 11-12-2023 Procalcitonin [Mass/Vol] 0.18 ng/mL High 0.00 - 0.09 ng/mL [facility] Troponin I.cardiac [Mass/Vol] 0.016 ng/mL NINF - 0.034 ng/mL [facility] Base excess Calc (BldV) [Moles/Vol] 3.2 mmol/L High -3 - 3 mmol/L [facility] CO2 (BldV) [Partial pressure] 46.9 mm[Hg] [facility] HCO3 (Bld) [Moles/Vol] 28.9 mmol/L High 23.0 - 27.0 mmol/L [facility] Oxygen (BldV) [Partial pressure] 62.5 mm[Hg] mm Hg [facility] pH (BldV) 7.397 [pH] 7.330 - 7.430 pH [facility] Troponin I.cardiac [Mass/Vol] 0.017 ng/mL NINF - 0.034 ng/mL [facility] Laboratory - Drug toxicology Ordered By: Isis Braswell on 11-12-2023 Amphetamines Ql (U) Negative Negative [facility] Barbiturates screen method Nom (U) Negative Negative [facility] Benzodiazepines screen method Nom (U) Negative Negative [facility] Cocaine Ql (U) Negative Negative [facility] Ethanol [Mass/Vol] Negative Negative [facility] Methadone Ql (U) Negative Negative [facility] Opiates Screen Ql (U) Negative Negative [facility] No Panel InformationOrdered By: Isis Braswell on 11-12-2023 BUPRENORPHINE SCREEN Negative Negative [facility] FENTANYL Negative Negative [facility] OXYCODONE/OXYMORPHONE Negative Negative [facility] PCP Negative Negative [facility] THC Negative Negative [facility] The expected value f or the drugs listed above is Negative. The following drugs or drug groups have been screened for by Immunoassay at the following thresholds: Amphetamine class(1000ng/mL) Barbituates(200ng/mL) Benzodiazepines(200ng/mL ) Cocaine(300ng/mL) Ethanol (50 ng/mL) Methadone(300ng/mL) Opiates(300ng/mL) Oxycodone(100ng/mL) PCP(25ng/mL) Buprenorphine(5ng/mL) THC(50ng/mL) Fentanyl(1ng/mL) Positive results are NOT confirmed by a more specific alternative method unless requested. If confirmation is needed, request confirmation under separate order. NOTE: These results are for medical treatment only. Analysis performed using non-forensic procedures. [facility] No Panel Informationon 11-11 ETHYL GLUCURONIDE, URINE Positive Negative [facility] Ethyl Glucuronide parada s been screened by Immunoassay at a 500 ng/mL threshold. POSITIVE results are not confirmed by a more specific alternative method unless requested. If confirmation is needed, request confirmation under separate order. NOTE: These results are for medical treatment only. Analysis performed using non-forensic procedures. This test has not been cleared by the US Food and Drug Administration (FDA). The FDA has determined that such clearance or approval is not necessary. The performance characteristics have been determined by the clinical laboratories of [facility]. [facility] P [place] 0 degrees [facility] VA Interval 0 ms [facility] QRS [place] 0 degrees [facility] QRSD Interval 176 ms [facility] QT Interval 400 ms [facility] QTC Interval 558 ms [facility] T Wave [place] 82 degrees [facility] Atrial fibrillation Ventricular premature complex Left bundle branch block ST elevation secondary to IVCD Electronically Signed On 11-12-2023 06:01:36 EDT by Charlie Chaudhry MD - 11/12/2023 IMPRESSION: Atrial fibrillation Ventricular premature complex Left bundle branch block ST elevation secondary to IVCD Electronically Signed On 11-12-2023 06:01:36 EDT by Charlie Mcintyre [facility] Atrial fibrillation Ventricular premature complex Left bundle branch block ST elevation secondary to IVCD Electronically Signed On 11-12-2023 06:00:37 EDT by Charlie Chaudhry MD - 11/12/2023 IMPRESSION: Atrial fibrillation Ventricular premature complex Left bundle branch block ST elevation secondary to IVCD Electronically Signed On 11-12-2023 06:00:37 EDT by Charlie Mcintyre [facility] FIO2 [facility] Interpretation and review of laboratory results Abnormal [facility] Performed by: [facility], [address] [place] [address] CLIA ID: [id number] [facility] Radiology Study observation (narrative) [facility] No Panel InformationOrdered By: Keyla Vieira on 11-12-2023 Interpretation and review of laboratory results Normal [facility] Legionella pneumophila Ag Not detected Not Detected [facility] Streptococcus pneumoniae Ag Not detected Not Detected [facility] Methodology: Lateral flow enzyme immunoassay This assay is approved for detection of antigens to Streptococcus pneumoniae and Legionella pneumophila serogroup 1; however, other L. pneumophila serogroups may also be detected. [facility] No Panel InformationOrdered By: Charlie Mcintyre on 11-12-2023 P [place] 0 degrees [facility] Work Phone: VA Interval 0 ms [facility] Work Phone: QRS [place] 166 degrees [facility] Work Phone: QRSD Interval 178 ms [facility] Work Phone: QT Interval 425 ms [facility] Work Phone: QTC Interval 552 ms [facility] Work Phone: T Wave [place] 34 degrees [facility] Work Phone: [facility] Work Phone: Procalcitonin [Mass/Vol]on 0 11-12-2023 Interpretation and review of laboratory results Abnormal [facility] PCT <0.50 = Low risk of severe sepsis and/or septic shock. PCT >2.00 = High risk of severe sepsis and/or septic shock. [facility] Respiratory pathogens DNA an d RNA panel GEO+non-probe (Nph)on 11-12-2023 Adenovirus Not detected Not Detected [facility] B. pertussis DNA GEO+probe Ql (Unsp spec) Not detected Not Detected [facility] Bordetella parapertussis Not detected Not Detected [facility] Chlamydia pneumoniae Not detected Not Detected [facility] Coronavirus 229E Not detected Not Detected [facility] Coronavirus HKU1 Not detected Not Detected [facility] Coronavirus NL63 Not detected Not Detected [facility] Coronavirus OC43 Not detected Not Detected [facility] FLUAV RNA GEO+non-probe Ql (Nph) Not detected Not Detected [facility] FLUBV RNA GEO+non-probe Ql (Nph) Not detected Not Detected [facility] Human Metapneumovirus Not detected Not Detected [facility] Human Rhinovirus/Enterovirus Not detected Not Detected [facility] Interpretation and review of laboratory results Normal [facility] Mycoplasma pneumoniae Not detected Not Detected [facility] Parainfluenza 1 Not detected Not Detected [facility] Parainfluenza 2 Not detected Not Detected [facility] Parainfluenza 3 Not detected Not Detected [facility] Parainfluenza 4 Not detected Not Detected [facility] Respiratory Syncytial Virus Not detected Not Detected [facility] SARS-CoV-2 (COVID-19) RNA GEO+non-probe Ql (Nph) Not detected Not Detected [facility] Methodology: Multipl ex PCR [facility] Troponin I.cardiac [Mass/Vol ]on 11-12-2023 Interpretation and review of laboratory results Normal [facility] Patients with high levels of Biotin oral intake (ie >5 mg/day) may have falsely decreased Troponin levels. [employer] [facility] Interpretation and review of laboratory results Normal [facility] Patients with high levels of Biotin oral intake (ie >5 mg/day) may have falsely decreased Troponin levels. [facility] US Heart TransthoracicOrdere d By: Tonya Rosales on 11-12-2023 Aortic Sinus Valsalva 4.0 cm [facility] [employer] Phone: Aortic Sinus Valsalva Index 2.01 cm/m2 [employer] Phone: [phone] Ascending Aorta 3.7 cm [employer] Phone: [phone] Ascending Aorta Index 1.86 cm/m2 [facility] [employer] Phone: AV Area by Peak Velocity 3.0 cm2 [employer] Phone: AV Area by VTI 2.9 cm2 [employer] Phone: [phone] AV Mean Gradient 3 mmHg [employer] Phone: [phone] AV Mean Velocity 0.8 m/s [employer] Phone: [phone] AV Peak Gradient 6 mmHg [employer] Phone: AV Peak Velocity 1.2 m/s [employer] Phone: AV Velocity Ratio 0.75 [employer] Phone: AV VTI 23.6 cm [employer] Phone: BRITTNEY/BSA Peak Velocity 1.5 cm2/m2 [facility] [employer] Phone: BRITTNEY/BSA VTI 1.5 cm2/m2 [employer] Phone: EF BP 21 % Abnormal 55 - 100 % [employer] Phone: Est. RA Pressure 15 mmHg [employer] Phone: Fractional Shortening 2D 9 % 28 - 44 % [employer] Phone: Interpretation and review of laboratory results Abnormal [facility] Phone: IVC Diameter 2.7 cm [employer] Phone: IVSd 1.2 cm Abnormal 0.6 - 1.0 cm [employer] Phone: LA Diameter 5.7 cm [employer] Phone: LA Size Index 2.86 cm/m2 [employer] Phone: LA Volume 2C 142 mL Abnormal 18 - 58 mL [employer] Phone: LA Volume 4C 131 mL Abnormal 18 - 58 mL [employer] Phone: LA Volume A/L 146 mL [employer] Phone: LA Volume Index 2C 71 mL/m2 Abnormal 16 - 34 mL/m2 [employer] Phone: LA Volume Index 4C 66 mL/m2 Abnormal 16 - 34 mL/m2 [employer] Phone: LA Volume Index A/L 73 mL/m2 16 - 34 mL/m2 [employer] Phone: LV EDV A2C 278 mL [employer] Phone: LV EDV A4C 238 mL [employer] Phone: LV EDV BP 257 mL Abnormal 67 - 155 mL [employer] Phone: LV EDV Index A2C 140 mL/m2 [employer] Phone: LV EDV Index A4C 120 mL/m2 [employer] Phone: LV EDV Index BP 129 mL/m2 [employer] Phone: LV Ejection Fraction A2C 19 % [employer] Phone: LV Ejection Fraction A4C 24 % [employer] Phone: LV ESV A2C 225 mL [facility] Work Phone: LV ESV A4C 181 mL [facility] Work Phone: LV ESV BP 203 mL Abnormal 22 - 58 mL [facility] Work Phone: LV ESV Index A2C 113 mL/m2 [facility] Work Phone: LV ESV Index A4C 91 mL/m2 [facility] Work Phone: LV ESV Index BP 102 mL/m2 [facility] Work Phone: LV Mass 2D 349.5 g Abnormal 88 - 224 g [facility] Work Phone: LV Mass 2D Index 175.6 g/m2 Abnormal 49 - 115 g/m2 [facility] Work Phone: LV RWT Ratio 0.38 [facility] Work Phone: LVIDd 6.4 cm Abnormal 4.2 - 5.9 cm [facility] Work Phone: LVIDd Index 3.22 cm/m2 [facility] Work Phone: LVIDs 5.8 cm [facility] Work Phone: LVIDs Index 2.91 cm/m2 [facility] Work Phone: LVOT Area 4.2 cm2 [facility] Work Phone: LVOT Cardiac Output 4.9 liter/minute [facility] Work Phone: LVOT Diameter 2.3 cm [facility] Work Phone: LVOT Mean Gradient 1 mmHg [facility] Work Phone: LVOT Peak Gradient 3 mmHg [facility] Work Phone: LVOT Peak Velocity 0.9 m/s [facility] Work Phone: LVOT Stroke Volume Index 34.2 mL/m2 [facility] Work Phone: LVOT SV 68.1 ml [facility] Work Phone: LVOT VTI 16.4 cm [facility] Phone: LVOT:AV VTI Index 0.69 [facility] Phone: LVPWd 1.2 cm Abnormal 0.6 - 1.0 cm [facility] Phone: RVSP 47 mmHg [facility] Phone: Sinotubular Junction 3.7 cm [facility] Phone: TR Max Velocity 2.81 m/s [facility] Phone: TR Peak Gradient 32 mmHg [facility] Phone: [facility] Phone: Heart Transthoracicon Left Ventricle: Left ventricle is moderately dilated. LVIDd is 6.4 cm. Mildly increased wall thickness. Severely reduced left ventricular systolic function. EF by 2D Simpsons Biplane is 21%. Global hypokinesis present. Right Ventricle: Right ventricle is severely dilated. Pacemaker lead present in the right ventricle. Tricuspid Valve: Moderately severe (3+) regurgitation. RVSP may be underestimated in the setting of severe TR. RVSP is 47 mmHg. Left Atrium: Left atrium is severely dilated. LA Vol Index A/L is 73 mL/m2. Right Atrium: Right atrium is severely dilated. Mitral Valve: Annular dilation. Mild to moderate (1-2+) regurgitation. IVC is severely dilated. IVC diameter is dilated and decreases less than 50% during inspiration; therefore the estimated right atrial pressure is elevated (~15 mmHg). Left Ventricle Left ventricle is moderately dilated. LVIDd is 6.4 cm. Mildly increased wall thickness. Severely reduced left ventricular systolic function. EF by 2D Simpsons Biplane is 21%. Global hypokinesis present. Right Ventricle Right ventricle is severely dilated. Pacemaker lead present in the right ventricle. Left Atrium Left atrium is severely dilated. LA Vol Index A/L is 73 mL/m2. Right Atrium Right atrium is severely dilated. IVC/SVC IVC is severely dilated. IVC diameter is dilated and decreases less than 50% during inspiration; therefore the estimated right atrial pressure is elevated (~15 mmHg). Mitral Valve Annular dilation. Mild to moderate (1-2+) regurgitation. No stenosis noted. Tricuspid Valve Annular dilation. Moderately severe (3+) regurgitation. RVSP may be underestimated in the setting of severe TR. RVSP is 47 mmHg. Aortic Valve Trileaflet. 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 No regurgitation. No stenosis. Pulmonic Valve The pulmonic valve visualization is suboptimal but appears to be functioning normally. No regurgitation. Pericardium No pericardial effusion. Septum No interatrial shunt visualized on color Doppler. Study Details Image quality: suboptimal. Heart rate: 80 bpm. Blood pressure: 146/64 mmHg. Cardiac history: PPM/AICD. Ultrasound enhancement agent was given to enhance imaging. CV CPACS [facility] 11-12-2023 Heart rate 117 /min bpm [facility] Oxygen saturation in Venous blood 91.2 % [facility] Comment on above: Performed by CLIA ID : [id number] [place] ?Device: [id number] [employer]airman ID: [id number] Vital signsOrdered By: Bree Mcintyre on 11-12-2023 Heart rate 101 /min bpm [facility] Work Phone: XR Chest 2 Viewson 4 FINDINGS/IMPRESSION: Limitations: Slight rotation Lines, tubes, and devices: Dual-lead left-sided AICD device in place Cardiomediastinal silhouette: Cardiomegaly as before Lungs/Pleura: Background of mild chronic lung changes. Diffuse hazy groundglass opacities involving both lungs slightly improved likely reflecting improving pulmonary vascular congestion. Mild patchy confluent bibasilar opacities reflecting mild atelectasis and/or pneumonia similar to prior study. Suspect trace to small pleural effusions versus pleural thickening. No pneumothorax. 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 Multiple healed fracture deformities. Partial visualization of left proximal humeral fracture Soft tissues: No soft tissue abnormality is detected. Report Dictated on Electronically Signed By: Asa Patel MD Electronically Signed Date/Time: 11/12/2023 8:40 AM [facility] [employer] Patient Name: KRYSTINA LYNCH : 1955 Exam Date/Time: 11/12/2023 08:23 Procedure: XR CHEST 2 VIEWS Ordering Provider: DUMONT ALEXIA Reason For Exam: DYSPNEA CHEST X-RAY PA/LATERAL CLINICAL INDICATION: DYSPNEA TECHNIQUE: Frontal and lateral plain films of the chest were obtained. COMPARISON: Previous day [facility] Donna Patel MD - 11/12/2023 [facility] Name[facility] 1955 [id number] Exam Date/Time: 11/12/2023 08:23 Procedure: XR CHEST 2 VIEWS Ordering Provider: DUMONT ALEXIA Reason For Exam: DYSPNEA CHEST X-RAY PA/LATERAL CLINICAL INDICATION: DYSPNEA TECHNIQUE: Frontal and lateral plain films of the chest were obtained. COMPARISON: Previous day IMPRESSION: FINDINGS/IMPRESSION: Limitations: Slight rotation Lines, tubes, and devices: Dual-lead left-sided AICD device in place Cardiomediastinal silhouette: Cardiomegaly as before Lungs/Pleura: Background of mild chronic lung changes. Diffuse hazy groundglass opacities involving both lungs slightly improved likely reflecting improving pulmonary vascular congestion. Mild patchy confluent bibasilar opacities reflecting mild atelectasis and/or pneumonia similar to prior study. Suspect trace to small pleural effusions versus pleural thickening. No pneumothorax. 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 Multiple healed fracture deformities. Partial visualization of left proximal humeral fracture Soft tissues: No soft tissue abnormality is detected. Report Dictated on Electronically Signed By: Asa Patel MD Electronically Signed Date/Time: 11/12/2023 8:40 AM EDT [facility] Radiology Study observation (narrative) [facility] XR Chest 2 ViewsOrdered By: Donna Patel on 11-12-2023 [employer] [facility] Work Phone: Basic metabolic 1998 panelon 11-11-2023 Anion gap [Moles/Vol] 9 mmol/L 3 - 13 mmol/L [facility] Calcium [Mass/Vol] 9.6 mg/dL 8.4 - 10. 4 mg/dL [facility] Chloride [Moles/Vol] 94 mmol/L Low 98 - 10 7 mmol/L [facility] CO2 [Moles/Vol] 28 mmol/L 22 - 30 mmol/L [facility] Creatinine [Mass/Vol] 0.44 mg/dL Low 0.66 - 1.25 mg/dL [facility] GFR/1.73 sq M.predicted MDRD (S/P/Bld) [Vol rate/Area] - PINF [facility] Comment on above: Calculation based on the Chronic Kidney Disease Epidemiology Collaboration (CKD-EPI) equation refit without adjustment for race Glucose [Mass/Vol] 104 mg/dL High 70 - 100 mg/dL [facility] Interpretation and review of laboratory results Abnormal [facility] Potassium [Moles/Vol] 4.1 mmol/L 3.5 - 5.1 mmol/L [facility] Sodium [Moles/Vol] 130 mmol/L Low 135 - 145 mmol/L [facility] Urea nitrogen [Mass/Vol] 8 mg/dL Low 9 - 20 mg/dL [facility] CBC panel Auto (Bld)on 11-10 Erythrocyte distribution width (RBC) [Ratio] 13.2 % 11.5 - 15.0 % [facility] Hematocrit (Bld) [Volume fraction] 43.1 % 40.0 - 52.0 % [facility] Hemoglobin (Bld) [Mass/Vol] 15.0 g/dL 13.0 - 18.0 g/dL [facility] Interpretation and review of laboratory results Abnormal [facility] MCH (RBC) [Entitic mass] 30.9 pg 26.0 - 34.0 pg [facility] MCHC (RBC) [Mass/Vol] 34.8 % 30.5 - 36.0 % [facility] MCV (RBC) [Entitic vol] 88.9 fL 77.0 - 99.0 fL [facility] Platelet mean volume (Bld) [Entitic vol] 9.3 fL 9.0 - 12.7 fL [facility] Platelets (Bld) [#/Vol] 236 10*3/uL 140 - 440 10*3/uL [facility] RBC (Bld) [#/Vol] 4.85 10*6/uL 4.40 - 5.9 0 10*6/uL [facility] WBC (Bld) [#/Vol] 13.3 10*3/uL High 3.6 - 10.7 10*3/uL [facility] Laboratory - Chemistry and C hemistry - challengeon 11-11-2023 Troponin I.cardiac [Mass/Vol] 0.016 ng/mL NINF - 0.034 ng/mL [facility] Natriuretic peptide B [Mass/ Vol]on 11-11-2023 Interpretation and review of laboratory results Abnormal [facility] Natriuretic peptide B (Bld) [Mass/Vol] 48936 pg/mL High <20 - 300 [facility] No Panel Informationon 11-10 [facility] Troponin I.cardiac [Mass/Vol ]on 11-11-2023 Interpretation and review of laboratory results Normal [facility] Patients with high levels of Biotin oral intake (ie >5 mg/day) may have falsely decreased Troponin levels. [facility] XR Chest Single viewon 11-10 1. Findings which may represent vascular congestion, nonspecific infectious/inflammatory process and pneumonitis or chronic interstitial and fibrotic change, increased or with interval progression. Clinical correlation and follow-up as indicated. Report Dictated on Electronically Signed By: Alirio Gamboa MD Electronically Signed Date/Time: 11/11/2023 9:06 PM EDT [facility] [employer] [facility] 1955 [id number] Exam Date/Time: 11/11/2023 20:50 Procedure: XR CHEST 1 VIEW Ordering Provider: PARIS JOSHUA Reason For Exam: shortness of breath, hypoxia CHEST PORTABLE CLINICAL INDICATION: shortness of breath, hypoxia TECHNIQUE: Portable chest x-ray(s). COMPARISON: December,. FINDINGS: Moderate cardiomegaly, mildly increased. Left-sided cardiac device again noted. Lungs show patchy and partially confluent opacities bilaterally, with central distribution and lower lobe predominance, increased from comparison. Mild blunting of right costophrenic angle suggesting very small pleural effusion, new from comparison. No apparent pneumothorax. Degenerative change again noted in the thoracic spine. Probable fracture in the left humeral neck partially visualized. [facility] Alirio Gamboa MD - 11/11/2023 Patient Name: KRYST[facility]KHAM [facility] 1955 [id number] Exam Date/Time: 11/11/2023 20:50 Procedure: XR CHEST 1 VIEW Ordering Provider: PARIS JOSHUA Reason For Exam: shortness of breath, hypoxia CHEST PORTABLE CLINICAL INDICATION: shortness of breath, hypoxia TECHNIQUE: Portable chest x-ray(s). COMPARISON: December,. FINDINGS: Moderate cardiomegaly, mildly increased. Left-sided cardiac device again noted. Lungs show patchy and partially confluent opacities bilaterally, with central distribution and lower lobe predominance, increased from comparison. Mild blunting of right costophrenic angle suggesting very small pleural effusion, new from comparison. No apparent pneumothorax. Degenerative change again noted in the thoracic spine. Probable fracture in the left humeral neck partially visualized. IMPRESSION: 1. Findings which may represent vascular congestion, nonspecific infectious/inflammatory process and pneumonitis or chronic interstitial and fibrotic change, increased or with interval progression. Clinical correlation and follow-up as indicated. Report Dictated on Electronically Signed By: Alirio Gamboa MD Electronically Signed Date/Time: 11/11/2023 9:06 PM EDT [facility] [facility] Radiology Study observation (narrative) [facility] XR Chest Single viewOrdered By: Alirio Gamboa on 11-11-2023 [employer] Work Phone: Basic metabolic 1998 panelon 01-01-2023 Anion gap [Moles/Vol] 0 mmol/L Low 3 - 13 mmol/L [facility] Calcium [Mass/Vol] 8.2 mg/dL Low 8.4 - 10. 4 mg/dL [facility] Chloride [Moles/Vol] 99 mmol/L 98 - 10 7 mmol/L [facility] CO2 [Moles/Vol] 27 mmol/L 22 - 30 mmol/L [facility] Creatinine [Mass/Vol] 0.56 mg/dL Low 0.66 - 1.25 mg/dL [facility] GFR/1.73 sq M.predicted MDRD (S/P/Bld) [Vol rate/Area] - PINF [facility] [facility] Comment on above: Calculation based on the Chronic Kidney Disease Epidemiology Collaboration (CKD-EPI) equation refit without adjustment for race Glucose [Mass/Vol] 144 mg/dL High 70 - 100 mg/dL [facility] Interpretation and review of laboratory results Abnormal [facility] Potassium [Moles/Vol] 3.9 mmol/L 3.5 - 5.1 mmol/L [facility] Sodium [Moles/Vol] 126 mmol/L Low 135 - 145 mmol/L [facility] Urea nitrogen [Mass/Vol] 13 mg/dL 9 - 20 mg/dL [facility] Anion gap [Moles/Vol] 4 mmol/L 3 - 13 mmol/L [facility] Calcium [Mass/Vol] 8.2 mg/dL Low 8.4 - 10. 4 mg/dL [facility] Chloride [Moles/Vol] 98 mmol/L 98 - 10 7 mmol/L [facility] CO2 [Moles/Vol] 23 mmol/L 22 - 30 mmol/L [facility] Creatinine [Mass/Vol] 0.58 mg/dL Low 0.66 - 1.25 mg/dL [facility] GFR/1.73 sq M.predicted MDRD (S/P/Bld) [Vol rate/Area] - PINF [facility] Comment on above: Calculation based on the Chronic Kidney Disease Epidemiology Collaboration (CKD-EPI) equation refit without adjustment for race Glucose [Mass/Vol] 149 mg/dL High 70 - 100 mg/dL [facility] Interpretation and review of laboratory results Abnormal [facility] Potassium [Moles/Vol] 4.4 mmol/L 3.5 - 5.1 mmol/L [facility] Sodium [Moles/Vol] 125 mmol/L Low 135 - 145 mmol/L [facility] Urea nitrogen [Mass/Vol] 13 mg/dL 9 - 20 mg/dL [facility] CBC W Auto Differential pane l (Bld)Ordered By: Wanda Alarcon on 01-01-2023 Basophils (Bld) [#/Vol] 0.0 10*3/uL 0.0 - 0.2 10*3/uL [facility] Basophils/100 WBC (Bld) 0.3 % 0.0 - 2.0 % [facility] Eosinophils (Bld) [#/Vol] 0.2 10*3/uL 0.0 - 0.5 10*3/uL [facility] Eosinophils/100 WBC (Bld) 1.3 % 1.0 - 6.0 % [facility] Erythrocyte distribution width (RBC) [Ratio] 13.8 % 11.5 - 14.5 % [facility] Hematocrit (Bld) [Volume fraction] 26.2 % Low 40.0 - 52.0 % [facility] Hemoglobin (Bld) [Mass/Vol] 9.1 g/dL Low 13.0 - 18.0 g/dL [facility] Interpretation and review of laboratory results Abnormal [facility] Lymphocytes (Bld) [#/Vol] 1.0 10*3/uL 1.0 - 4.3 10*3/uL [facility] Lymphocytes/100 WBC (Bld) 8.6 % Low 20.0 - 40.0 % [facility] MCH (RBC) [Entitic mass] 34.0 pg 26.0 - 34.0 pg [facility] MCHC (RBC) [Mass/Vol] 34.8 % 32.0 - 36.0 % [facility] MCV (RBC) [Entitic vol] 97.6 fL 80.0 - 98.0 fL [facility] Monocytes (Bld) [#/Vol] 1.3 10*3/uL High 0.0 - 0.8 10*3/uL [facility] Monocytes/100 WBC (Bld) 11.1 % High 2.0 - 10.0 % [facility] Neutrophils (Bld) [#/Vol] 9.5 10*3/uL High 1.8 - 7.0 10*3/uL [facility] Neutrophils/100 WBC (Bld) 78.7 % 40.0 - 80.0 % [facility] Nucleated RBC/100 WBC (Bld) [Ratio] 0.0 % [facility] Platelet mean volume (Bld) [Entitic vol] 8.2 fL 7.4 - 12.4 fL [facility] Platelets (Bld) [#/Vol] 186 10*3/uL 140 - 440 10*3/uL [facility] RBC (Bld) [#/Vol] 2.68 10*6/uL Low 4.40 - 5.9 0 10*6/uL [facility] WBC (Bld) [#/Vol] 12.0 10*3/uL High 3.6 - 10.7 10*3/uL [facility] Comprehensive metabolic 1998 panelon 01-01-2023 Albumin [Mass/Vol] 2.8 g/dL Low 3.5 - 5.0 g/dL [facility] ALP [Catalytic activity/Vol] 81 U/L 38 - 126 U/L [facility] ALT [Catalytic activity/Vol] 81 U/L High 0 - 49 U/L [facility] Anion gap [Moles/Vol] 2 mmol/L Low 3 - 13 mmol/L [facility] AST [Catalytic activity/Vol] 38 U/L 15 - 46 U/L [facility] Bilirubin [Mass/Vol] 0.7 mg/dL 0.2 - 1 .3 mg/dL [facility] Calcium [Mass/Vol] 8.1 mg/dL Low 8.4 - 10. 4 mg/dL [facility] Chloride [Moles/Vol] 98 mmol/L 98 - 10 7 mmol/L [facility] CO2 [Moles/Vol] 25 mmol/L 22 - 30 mmol/L [facility] Creatinine [Mass/Vol] 0.66 mg/dL 0.66 - 1.25 mg/dL [facility] GFR/1.73 sq M.predicted MDRD (S/P/Bld) [Vol rate/Area] - PINF [facility] Comment on above: Calculation based on the Chronic Kidney Disease Epidemiology Collaboration (CKD-EPI) equation refit without adjustment for race Glucose [Mass/Vol] 126 mg/dL High 70 - 100 mg/dL [facility] Interpretation and review of laboratory results Abnormal [facility] Potassium [Moles/Vol] 4.1 mmol/L 3.5 - 5.1 mmol/L [facility] Protein [Mass/Vol] 5.2 g/dL Low 6.3 - 8.2 g/dL [facility] Sodium [Moles/Vol] 125 mmol/L Low 135 - 145 mmol/L [facility] Urea nitrogen [Mass/Vol] 13 mg/dL 9 - 20 mg/dL [facility] ECG 12 leadon 01-01-2023 Heart rate 77 /min bpm [facility] P [place] degrees [facility] VA Interval ms [facility] QRS [place] -72 degrees [facility] QRSD Interval 188 ms [facility] QT Interval 500 ms [facility] QTC Interval 567 ms [facility] T Wave [place] 138 degrees [facility] ATRIAL FIBRILLATION VENTRICULAR PREMATURE COMPLEX IVCD, CONSIDER ATYPICAL LBBB Electronically Signed On 01-01-2023 18:15:33 EDT by Charlie Hayward MD - 01/01/2023 IMPRESSION: ATRIAL FIBRILLATION VENTRICULAR PREMATURE COMPLEX IVCD, CONSIDER ATYPICAL LBBB Electronically Signed On 01-01-2023 18:15:33 EDT by Charlie Robbins [employer] ATRIAL FIBRILLATION PAIRED VENTRICULAR PREMATURE COMPLEXES NONSPECIFIC IVCD WITH LAD Compared to ECG 12/30/2022 19:39:42 Atrial fibrillation no longer present Left ventricular hypertrophy no longer present Early repolarization no longer present Electronically Signed On 01-01-2023 18:12:02 EDT by Charlie Hayward MD - 01/01/2023 IMPRESSION: ATRIAL FIBRILLATION PAIRED VENTRICULAR PREMATURE COMPLEXES NONSPECIFIC IVCD WITH LAD Compared to ECG 12/30/2022 19:39:42 Atrial fibrillation no longer present Left ventricular hypertrophy no longer present Early repolarization no longer present Electronically Signed On 01-01-2023 18:12:02 EDT by Charlie Robbins [facility] ECG 12 leadOrdered By: Bree Robbins on 01-01-2023 Heart rate 82 /min bpm [employer] Work Phone: P [place] 0 degrees [employer] Work Phone: VA Interval 186 ms [employer] Phone: QRS [place] 248 degrees [employer] Phone: QRSD Interval 174 ms [employer] Phone: QT Interval 472 ms [employer] Phone: QTC Interval 552 ms [employer] Phone: T Wave [place] 116 degrees [employer] Phone: [employer] Phone: Magn[employer]on 01-01-2023 Magnesium [Mass/Vol] 1.9 mg/dL 1.6 - 2 .3 mg/dL [facility] Magnesium [Mass/Vol]on 01-01 Interpretation and review of laboratory results Normal [facility] No Panel Informationon 01-01 [facility] PROTIME/INR & PTTon 01-02-20 23 aPTT Coag (PPP) [Time] 36.9 s High 20.0 - 30.5 s [facility] INR Coag (PPP) [Relative time] 1.1 {INR} 0.9 - 1.1 [facility] Comment on above: Recommended Anticoag ulant Therapy: SEE BELOW ----- INR of 2.0 - 3.0 : - Prophylaxis of Venous Thrombosis (high-risk surgery) - Treatment of Venous Thrombosis - Treatment of Pulmonary Embolism (Includes tissue heart valves, Acute Myocardial Infarction to prevent systemic embolism, Valvular Heart Disease, and Atrial Fibrillation) ----- INR of 2.5 - 3.5 : - Mechanical Prosthetic Valves (high risk) - If oral anticoagulant therapy is used to prevent Myocardial Infarction Interpretation and review of laboratory results Abnormal [facility] PT Coag (Bld) [Time] 12.2 s High 9.0 - 12.0 s [facility] Phosphate [Moles/Vol]on Interpretation and review of laboratory results Abnormal [facility] Phosphate [Mass/Vol] 2.4 mg/dL Low 2.5 - 4 .5 mg/dL [facility] Basic metabolic 1998 panelon 12-31-2022 Anion gap [Moles/Vol] 0 mmol/L Low 3 - 13 mmol/L [facility] Calcium [Mass/Vol] 8.1 mg/dL Low 8.4 - 10. 4 mg/dL [facility] Chloride [Moles/Vol] 98 mmol/L 98 - 10 7 mmol/L [facility] CO2 [Moles/Vol] 27 mmol/L 22 - 30 mmol/L [facility] Creatinine [Mass/Vol] 0.66 mg/dL 0.66 - 1.25 mg/dL [facility] GFR/1.73 sq M.predicted MDRD (S/P/Bld) [Vol rate/Area] - PINF [facility] Comment on above: Calculation based on the Chronic Kidney Disease Epidemiology Collaboration (CKD-EPI) equation refit without adjustment for race Glucose [Mass/Vol] 117 mg/dL High 70 - 100 mg/dL [facility] Interpretation and review of laboratory results Abnormal [facility] Potassium [Moles/Vol] 4.2 mmol/L 3.5 - 5.1 mmol/L [facility] Sodium [Moles/Vol] 125 mmol/L Low 135 - 145 mmol/L [facility] Urea nitrogen [Mass/Vol] 13 mg/dL 9 - 20 mg/dL [facility] Anion gap [Moles/Vol] 0 mmol/L Low 3 - 13 mmol/L [facility] Calcium [Mass/Vol] 8.0 mg/dL Low 8.4 - 10. 4 mg/dL [facility] Chloride [Moles/Vol] 95 mmol/L Low 98 - 10 7 mmol/L [facility] CO2 [Moles/Vol] 29 mmol/L 22 - 30 mmol/L [facility] Creatinine [Mass/Vol] 0.56 mg/dL Low 0.66 - 1.25 mg/dL [facility] GFR/1.73 sq M.predicted MDRD (S/P/Bld) [Vol rate/Area] - PINF [facility] Comment on above: Calculation based on the Chronic Kidney Disease Epidemiology Collaboration (CKD-EPI) equation refit without adjustment for race Glucose [Mass/Vol] 118 mg/dL High 70 - 100 mg/dL [facility] Interpretation and review of laboratory results Abnormal [facility] Potassium [Moles/Vol] 4.1 mmol/L 3.5 - 5.1 mmol/L [facility] Sodium [Moles/Vol] 124 mmol/L Low 135 - 145 mmol/L [facility] Urea nitrogen [Mass/Vol] 10 mg/dL 9 - 20 mg/dL [facility] CBC W Auto Differential pane l (Bld)Ordered By: Andrew Carmen on 12-31-2022 Basophils (Bld) [#/Vol] 0.1 10*3/uL 0.0 - 0.2 10*3/uL [facility] Basophils/100 WBC (Bld) 0.3 % 0.0 - 2.0 % [facility] Eosinophils (Bld) [#/Vol] 0.1 10*3/uL 0.0 - 0.5 10*3/uL [facility] Eosinophils/100 WBC (Bld) 0.4 % Low 1.0 - 6.0 % [facility] Erythrocyte distribution width (RBC) [Ratio] 13.9 % 11.5 - 14.5 % [facility] Hematocrit (Bld) [Volume fraction] 26.4 % Low 40.0 - 52.0 % [facility] Hemoglobin (Bld) [Mass/Vol] 8.9 g/dL Low 13.0 - 18.0 g/dL [facility] Interpretation and review of laboratory results Abnormal [facility] Lymphocytes (Bld) [#/Vol] 0.6 10*3/uL Low 1.0 - 4.3 10*3/uL [facility] Lymphocytes/100 WBC (Bld) 4.3 % Low 20.0 - 40.0 % [facility] MCH (RBC) [Entitic mass] 33.0 pg 26.0 - 34.0 pg [facility] MCHC (RBC) [Mass/Vol] 33.9 % 32.0 - 36.0 % [facility] MCV (RBC) [Entitic vol] 97.5 fL 80.0 - 98.0 fL [facility] Monocytes (Bld) [#/Vol] 1.3 10*3/uL High 0.0 - 0.8 10*3/uL [facility] Monocytes/100 WBC (Bld) 9.2 % 2.0 - 10.0 % [facility] Neutrophils (Bld) [#/Vol] 12.4 10*3/uL High 1.8 - 7.0 10*3/uL [facility] Neutrophils/100 WBC (Bld) 85.8 % High 40.0 - 80.0 % [facility] Nucleated RBC/100 WBC (Bld) [Ratio] 0.0 % [facility] Platelet mean volume (Bld) [Entitic vol] 7.9 fL 7.4 - 12.4 fL [facility] Platelets (Bld) [#/Vol] 181 10*3/uL 140 - 440 10*3/uL [facility] RBC (Bld) [#/Vol] 2.70 10*6/uL Low 4.40 - 5.9 0 10*6/uL [facility] WBC (Bld) [#/Vol] 14.5 10*3/uL High 3.6 - 10.7 10*3/uL [facility] Comprehensive metabolic 1998 panelon 12-31-2022 Albumin [Mass/Vol] 2.8 g/dL Low 3.5 - 5.0 g/dL [facility] ALP [Catalytic activity/Vol] 67 U/L 38 - 126 U/L [facility] ALT [Catalytic activity/Vol] 20 U/L 0 - 49 U/L [facility] Anion gap [Moles/Vol] 3 mmol/L 3 - 13 mmol/L [facility] AST [Catalytic activity/Vol] 40 U/L 15 - 46 U/L [facility] Bilirubin [Mass/Vol] 0.7 mg/dL 0.2 - 1 .3 mg/dL [facility] Calcium [Mass/Vol] 7.4 mg/dL Low 8.4 - 10. 4 mg/dL [facility] Chloride [Moles/Vol] 97 mmol/L Low 98 - 10 7 mmol/L [facility] CO2 [Moles/Vol] 26 mmol/L 22 - 30 mmol/L [facility] Creatinine [Mass/Vol] 0.49 mg/dL Low 0.66 - 1.25 mg/dL [facility] GFR/1.73 sq M.predicted MDRD (S/P/Bld) [Vol rate/Area] - PINF [facility] Comment on above: Calculation based on the Chronic Kidney Disease Epidemiology Collaboration (CKD-EPI) equation refit without adjustment for race Glucose [Mass/Vol] 107 mg/dL High 70 - 100 mg/dL [facility] Interpretation and review of laboratory results Abnormal [facility] Potassium [Moles/Vol] 3.2 mmol/L Low 3.5 - 5.1 mmol/L [facility] Protein [Mass/Vol] 5.2 g/dL Low 6.3 - 8.2 g/dL [facility] Sodium [Moles/Vol] 125 mmol/L Low 135 - 145 mmol/L [facility] Urea nitrogen [Mass/Vol] 10 mg/dL 9 - 20 mg/dL [facility] ECG 12 leadOrdered By: Jennifer Stroud on 12-31-2022 Heart rate 76 /min bpm [facility]: P [place] 0 degrees [facility] Work Phone: VA Interval 228 ms [employer] Work Phone: QRS [place] 183 degrees [facility] Work Phone: QRSD Interval 184 ms [employer] Work Phone: QT Interval 516 ms [facility] Work Phone: QTC Interval 581 ms [facility] Work Phone: T Wave [place] 125 degrees [employer] Work Phone: [facility] Work Phone: ECG 12 leadon 12-31-2022 Atrial fibrillation Ventricular premature complex(es) Intraventricular conduction delay, atypical LBBB Electronically Signed On 12-31-2022 8:26:26 EDT by Liam Mccullough MD - 12/31/2022 IMPRESSION: Atrial fibrillation Ventricular premature complex(es) Intraventricular conduction delay, atypical LBBB Electronically Signed On 12-31-2022 8:26:26 EDT by Joseayan Stroud [facility] PROTIME/INR & PTTon 01-01-20 aPTT Coag (PPP) [Time] 37.6 s High 20.0 - 30.5 s [facility] INR Coag (PPP) [Relative time] 1.2 {INR} High 0.9 - 1.1 [facility] Comment on above: Recommended Anticoag ulant Therapy: SEE BELOW ----- INR of 2.0 - 3.0 : - Prophylaxis of Venous Thrombosis (high-risk surgery) - Treatment of Venous Thrombosis - Treatment of Pulmonary Embolism (Includes tissue heart valves, Acute Myocardial Infarction to prevent systemic embolism, Valvular Heart Disease, and Atrial Fibrillation) ----- INR of 2.5 - 3.5 : - Mechanical Prosthetic Valves (high risk) - If oral anticoagulant therapy is used to prevent Myocardial Infarction Interpretation and review of laboratory results Abnormal [facility] PT Coag (Bld) [Time] 13.3 s High 9.0 - 12.0 s [facility] [employer] Basic metabolic 1998 panelon 12-30-2022 Anion gap [Moles/Vol] 1 mmol/L Low 3 - 13 mmol/L [facility] Calcium [Mass/Vol] 8.1 mg/dL Low 8.4 - 10. 4 mg/dL [facility] Chloride [Moles/Vol] 92 mmol/L Low 98 - 10 7 mmol/L [facility] CO2 [Moles/Vol] 29 mmol/L 22 - 30 mmol/L [facility] Creatinine [Mass/Vol] 0.54 mg/dL Low 0.66 - 1.25 mg/dL [facility] GFR/1.73 sq M.predicted MDRD (S/P/Bld) [Vol [facility]/Area[facility] Comment on above: Calculation based on the Chronic Kidney Disease Epidemiology Collaboration (CKD-EPI) equation refit without adjustment for race Glucose [Mass/Vol] 200 mg/dL High 70 - 100 mg/dL [facility] Interpretation and review of laboratory results Abnormal [facility] Potassium [Moles/Vol] 3.2 mmol/L Low 3.5 - 5.1 mmol/L [facility] Sodium [Moles/Vol] 122 mmol/L Low 135 - 145 mmol/L [facility] Urea nitrogen [Mass/Vol] 10 mg/dL 9 - 20 mg/dL [facility] Anion gap [Moles/Vol] -1 mmol/L Low 3 - 13 mmol/L [facility] Calcium [Mass/Vol] 8.0 mg/dL Low 8.4 - 10. 4 mg/dL [facility] Chloride [Moles/Vol] 94 mmol/L Low 98 - 10 7 mmol/L [facility] CO2 [Moles/Vol] 30 mmol/L 22 - 30 mmol/L [facility] Creatinine [Mass/Vol] 0.57 mg/dL Low 0.66 - 1.25 mg/dL [facility] GFR/1.73 sq M.predicted MDRD (S/P/Bld) [Vol rate/Area] - [facility] Comment on above: Calculation based on the Chronic Kidney Disease Epidemiology Collaboration (CKD-EPI) equation refit without adjustment for race Glucose [Mass/Vol] 122 mg/dL High 70 - 100 mg/dL [facility] Interpretation and review of laboratory results Abnormal [facility] Potassium [Moles/Vol] 3.4 mmol/L Low 3.5 - 5.1 mmol/L [facility] Sodium [Moles/Vol] 122 mmol/L Low 135 - 145 mmol/L [facility] Urea nitrogen [Mass/Vol] 11 mg/dL 9 - 20 mg/dL [facility] Anion gap [Moles/Vol] -1 mmol/L Low 3 - 13 mmol/L [facility] Calcium [Mass/Vol] 7.9 mg/dL Low 8.4 - 10. 4 mg/dL [facility] Chloride [Moles/Vol] 89 mmol/L Low 98 - 10 7 mmol/L [facility] CO2 [Moles/Vol] 32 mmol/L High 22 - 30 mmol/L [facility] Creatinine [Mass/Vol] 0.60 mg/dL Low 0.66 - 1.25 mg/dL [facility] GFR/1.73 sq M.predicted MDRD (S/P/Bld) [Vol rate/Area] - PINF [facility] Comment on above: Calculation based on the Chronic Kidney Disease Epidemiology Collaboration (CKD-EPI) equation refit without adjustment for race Glucose [Mass/Vol] 115 mg/dL High 70 - 100 mg/dL [facility] Interpretation and review of laboratory results Abnormal [facility] [facility] Potassium [Moles/Vol] 3.7 mmol/L 3.5 - 5.1 mmol/L [facility] Sodium [Moles/Vol] 119 mmol/L Critically low 135 - 1 45 mmol/L [facility] Urea nitrogen [Mass/Vol] 19 mg/dL 9 - 20 mg/dL [facility] CBC W Auto Differential pane l (Bld)on 12-30-2022 Basophils (Bld) [#/Vol] 0.0 10*3/uL 0.0 - 0.2 10*3/uL [facility] Basophils/100 WBC (Bld) 0.2 % 0.0 - 2.0 % [facility] Eosinophils (Bld) [#/Vol] 0.0 10*3/uL 0.0 - 0.5 10*3/uL [facility] Eosinophils/100 WBC (Bld) 0.3 % Low 1.0 - 6.0 % [facility] Erythrocyte distribution width (RBC) [Ratio] 13.6 % 11.5 - 14.5 % [facility] Hematocrit (Bld) [Volume fraction] 27.6 % Low 40.0 - 52.0 % [facility] Hemoglobin (Bld) [Mass/Vol] 9.5 g/dL Low 13.0 - 18.0 g/dL [facility] Interpretation and review of laboratory results Abnormal [facility] Lymphocytes (Bld) [#/Vol] 0.7 10*3/uL Low 1.0 - 4.3 10*3/uL [facility] Lymphocytes/100 WBC (Bld) 5.0 % Low 20.0 - 40.0 % [facility] MCH (RBC) [Entitic mass] 33.6 pg 26.0 - 34.0 pg [facility] MCHC (RBC) [Mass/Vol] 34.2 % 32.0 - 36.0 % [facility] MCV (RBC) [Entitic vol] 98.1 fL High 80.0 - 98.0 fL [facility] Monocytes (Bld) [#/Vol] 1.1 10*3/uL High 0.0 - 0.8 10*3/uL [facility] Monocytes/100 WBC (Bld) 7.7 % 2.0 - 10.0 % [facility] Neutrophils (Bld) [#/Vol] 11.9 10*3/uL High 1.8 - 7.0 10*3/uL [facility] Neutrophils/100 WBC (Bld) 86.8 % High 40.0 - 80.0 % [facility] Nucleated RBC/100 WBC (Bld) [Ratio] 0.0 % [facility] Platelet mean volume (Bld) [Entitic vol] 7.6 fL 7.4 - 12.4 fL [facility] Platelets (Bld) [#/Vol] 172 10*3/uL 140 - 440 10*3/uL [facility] RBC (Bld) [#/Vol] 2.81 10*6/uL Low 4.40 - 5.9 0 10*6/uL [facility] WBC (Bld) [#/Vol] 13.7 10*3/uL High 3.6 - 10.7 10*3/uL [facility] CBC W Auto Differential pane l (Bld)Ordered By: Mario Alberto Wilder on 12-30-2022 Basophils (Bld) [#/Vol] 0.0 10*3/uL 0.0 - 0.2 10*3/uL [facility] Basophils/100 WBC (Bld) 0.4 % 0.0 - 2.0 % [facility] Eosinophils (Bld) [#/Vol] 0.0 10*3/uL 0.0 - 0.5 10*3/uL [facility] Eosinophils/100 WBC (Bld) 0.2 % Low 1.0 - 6.0 % [facility] Erythrocyte distribution width (RBC) [Ratio] 13.4 % 11.5 - 14.5 % [facility] Hematocrit (Bld) [Volume fraction] 29.9 % Low 40.0 - 52.0 % [facility] Hemoglobin (Bld) [Mass/Vol] 10.5 g/dL Low 13.0 - 18.0 g/dL [facility] Interpretation and review of laboratory results Abnormal [facility] Lymphocytes (Bld) [#/Vol] 0.7 10*3/uL Low 1.0 - 4.3 10*3/uL [facility] Lymphocytes/100 WBC (Bld) 5.9 % Low 20.0 - 40.0 % [facility] MCH (RBC) [Entitic mass] 33.7 pg 26.0 - 34.0 pg [facility] MCHC (RBC) [Mass/Vol] 35.2 % 32.0 - 36.0 % [facility] MCV (RBC) [Entitic vol] 95.6 fL 80.0 - 98.0 fL [facility] Monocytes (Bld) [#/Vol] 1.3 10*3/uL High 0.0 - 0.8 10*3/uL [facility] Monocytes/100 WBC (Bld) 10.0 % 2.0 - 10.0 % [facility] Neutrophils (Bld) [#/Vol] 10.6 10*3/uL High 1.8 - 7.0 10*3/uL [facility] Neutrophils/100 WBC (Bld) 83.5 % High 40.0 - 80.0 % [facility] Nucleated RBC/100 WBC (Bld) [Ratio] 0.0 % [facility] Platelet mean volume (Bld) [Entitic vol] 7.7 fL 7.4 - 12.4 fL [facility] Platelets (Bld) [#/Vol] 168 10*3/uL 140 - 440 10*3/uL [facility] RBC (Bld) [#/Vol] 3.12 10*6/uL Low 4.40 - 5.9 0 10*6/uL [facility] WBC (Bld) [#/Vol] 12.7 10*3/uL High 3.6 - 10.7 10*3/uL [facility] CKon 12-30-2022 CK [Catalytic activity/Vol] 223 U/L High 30 - 170 U/L [facility] Calcium.ionized [Moles/Vol]o n 12-30-2022 Calcium.ionized (Bld) [Moles/Vol] 4.40 mg/dL 4.30 - 5.20 mg/dL [facility] Interpretation and review of laboratory results Normal [facility] PH, IONIZED CALCIUM 7.39 7.31 - 7.46 [facility] Calcium.ionized (Bld) [Moles/Vol] 4.20 mg/dL Low 4.30 - 5.20 mg/dL [facility] Interpretation and review of laboratory results Abnormal [facility] PH, IONIZED CALCIUM 7.49 High 7.31 - 7.46 [facility] Cobalamin (Vitamin B12) [Mas s/Vol]on 12-30-2022 Interpretation and review of laboratory results Abnormal [facility] Comprehensive metabolic 1998 panelon 12-30-2022 Albumin [Mass/Vol] 3.2 g/dL Low 3.5 - 5.0 g/dL [facility] ALP [Catalytic activity/Vol] 62 U/L 38 - 126 U/L [facility] ALT [Catalytic activity/Vol] 23 U/L 0 - 49 U/L [facility] Anion gap [Moles/Vol] 0 mmol/L Low 3 - 13 mmol/L [facility] AST [Catalytic activity/Vol] 49 U/L High 15 - 46 U/L [facility] Bilirubin [Mass/Vol] 0.8 mg/dL 0.2 - 1 .3 mg/dL [facility] Calcium [Mass/Vol] 8.4 mg/dL 8.4 - 10. 4 mg/dL [facility] Chloride [Moles/Vol] 90 mmol/L Low 98 - 10 7 mmol/L [facility] CO2 [Moles/Vol] 31 mmol/L High 22 - 30 mmol/L [facility] Creatinine [Mass/Vol] 0.59 mg/dL Low 0.66 - 1.25 mg/dL [facility] GFR/1.73 sq M.predicted MDRD (S/P/Bld) [Vol rate/Area] - PINF [facility] Comment on above: Calculation based on the Chronic Kidney Disease Epidemiology Collaboration (CKD-EPI) equation refit without adjustment for race Glucose [Mass/Vol] 120 mg/dL High 70 - 100 mg/dL [facility] Interpretation and review of laboratory results Abnormal [facility] Potassium [Moles/Vol] 3.7 mmol/L 3.5 - 5.1 mmol/L [employer] Protein [Mass/Vol] 5.6 g/dL Low 6.3 - 8.2 g/dL [employer] [facility] Sodium [Moles/Vol] 121 mmol/L Low 135 - 145 mmol/L [facility] [employer] Urea nitrogen [Mass/Vol] 17 mg/dL 9 - 20 mg/dL [facility] [employer] ECG 12 leadOrdered By: Richard Giang on 12-30-2022 Heart rate 88 /min bpm [employer] Work Phone: P [place] degrees [employer] Work Phone: VA Interval ms [employer] Work Phone: QRS [place] 264 degrees [employer] Phone: QRSD Interval 187 ms [employer] Phone: QT Interval 511 ms [employer] Work Phone: QTC Interval 619 ms [employer] Work Phone: T Wave [place] 57 degrees [employer] Work Phone: [employer] Work Phone: ECG 12 leadon 12-30-2022 EKG shows AFib witho ut RVR. LAD. Cannot calculate VA interval. Prolonged QRS and QTC. PVCs. No STEMI, no SVT, no LVH. IVCD present. No pacer spikes on this EKG. Previous EKG showed ventricular-paced rhythm with PVCs. Electronically Signed On 12-30-2022 6:11:33 EDT by Harlan Miranda MD - 12/30/2022 IMPRESSION: EKG shows AFib without RVR. LAD. Cannot calculate VA interval. Prolonged QRS and QTC. PVCs. No STEMI, no SVT, no LVH. IVCD present. No pacer spikes on this EKG. Previous EKG showed ventricular-paced rhythm with PVCs. Electronically Signed On 12-30-2022 6:11:33 EDT by Harlan Giang [facility] [employer] Hepatic function 2000 panelo n 12-30-2022 Albumin [Mass/Vol] 2.9 g/dL Low 3.5 - 5.0 g/dL [facility] ALP [Catalytic activity/Vol] 63 U/L 38 - 126 U/L [facility] ALT [Catalytic activity/Vol] 23 U/L 0 - 49 U/L [facility] AST [Catalytic activity/Vol] 54 U/L High 15 - 46 U/L [facility] Bilirubin [Mass/Vol] 0.9 mg/dL 0.2 - 1 .3 mg/dL [facility] Bilirubin.conjugated [Mass/Vol] 0.0 mg/dL 0.0 - 0.3 mg/dL [facility] Protein [Mass/Vol] 5.5 g/dL Low 6.3 - 8.2 g/dL [facility] MEDICATION ASSISTED TREATMEN T PANELOrdered By: Rozina Isaac on 12-30-2022 Amphetamines Ql (U) Negative Negative [facility] BARBITURATES Negative Negative [facility] Benzodiazepines Ql (U) Negative Negative [facility] BUPRENORPHINE SCREEN Negative Negative [facility] Cocaine Ql (U) Negative Negative [facility] Ethanol [Mass/Vol] Negative Negative [facility] FENTANYL Negative Negative [facility] Methadone Ql (U) Negative Negative [facility] Opiates Ql (U) Negative Negative [facility] OXYCODONE/OXYMORPHONE Positive Negative [facility] PCP Negative Negative [facility] THC Negative Negative [facility] The expected value f or the drugs listed above is Negative. The following drugs or drug groups have been screened for by Immunoassay at the following thresholds: Amphetamine class(1000ng/mL) Barbituates(200ng/mL) Benzodiazepines(200ng/mL ) Cocaine(300ng/mL) Ethanol (50 ng/mL) Methadone(300ng/mL) Opiates(300ng/mL) Oxycodone(100ng/mL) PCP(25ng/mL) Buprenorphine(5ng/mL) THC(50ng/mL) Fentanyl(1ng/mL) Positive results are NOT confirmed by a more specific alternative method unless requested. If confirmation is needed, request confirmation under separate order. NOTE: These results are for medical treatment only. Analysis performed using non-forensic procedures. [facility] Magnesiumon 12-30-2022 Magnesium [Mass/Vol] 2.0 mg/dL 1.6 - 2 .3 mg/dL [facility] Magnesium [Mass/Vol] 2.1 mg/dL 1.6 - 2 .3 mg/dL [facility] Magnesium [Mass/Vol] 2.2 mg/dL 1.6 - 2 .3 mg/dL [facility] Magnesium [Mass/Vol]on 12-30 Interpretation and review of laboratory results Normal [facility] No Panel Informationon 12-30 Interpretation and review of laboratory results Normal [facility] Interpretation and review of laboratory results Abnormal [facility] Interpretation and review of laboratory results Normal [facility] Osmolality, urineon 12-31-19 Interpretation and review of laboratory results Normal [facility] OSMOLALITY, URINE 361 [facility] PROTIME/INR & PTTon 12-31-19 aPTT Coag (PPP) [Time] 36.0 s High 20.0 - 30.5 s [facility] INR Coag (PPP) [Relative time] 1.2 {INR} High 0.9 - 1.1 [facility] Comment on above: Recommended Anticoag ulant Therapy: SEE BELOW ----- INR of 2.0 - 3.0 : - Prophylaxis of Venous Thrombosis (high-risk surgery) - Treatment of Venous Thrombosis - Treatment of Pulmonary Embolism (Includes tissue heart valves, Acute Myocardial Infarction to prevent systemic embolism, Valvular Heart Disease, and Atrial Fibrillation) ----- INR of 2.5 - 3.5 : - Mechanical Prosthetic Valves (high risk) - If oral anticoagulant therapy is used to prevent Myocardial Infarction Interpretation and review of laboratory results Abnormal [facility] PT Coag (Bld) [Time] 13.1 s High 9.0 - 12.0 s [facility] Phosphate [Moles/Vol]on 12-03 Phosphate [Mass/Vol] 2.7 mg/dL 2.5 - 4 .5 mg/dL [facility] Phosphate [Mass/Vol] 2.6 mg/dL 2.5 - 4 .5 mg/dL [facility] Sodium, urine, randomon 12-03 Interpretation and review of laboratory results Abnormal [facility] Sodium (24H U) [Mass/Vol] mmol/L Low 30 - 90 mmol/L [facility] Vitamin B12on 12-30-2022 Cobalamin (Vitamin B12) [Mass/Vol] pg/mL High 239 - 931 pg/mL [facility] XR Chest Single viewon 12-30 1. No confluent consolidation. 2. Cardiomegaly with mild pulmonary vascular congestion. Report Dictated on Electronically Signed By: Ashley Guadarrama Electronically Signed Date/Time: 12/30/2022 9:35 AM EDT [facility] Patient Name: KRYSTINA LYNCH : 1955 Exam Date/Time: 12/30/2022 08:48 Procedure: XR CHEST 1 VIEW Ordering Provider: SMITH MASROOR Reason For Exam: HYPOXIA INDICATION: Hypoxia; inpatient. VIEWS: Chest portable AP semiupright-1 image COMPARISON: 12/29/2022 FINDINGS: A left-sided cardiac device is present which overlies the axilla. Round radiopaque density projects over the midline of the lower hemithorax, correlate clinically. Cardiac monitoring wires and leads are present. The trachea is midline. The cardiac silhouette is enlarged. There is thickening of the interstitium. [facility] Ashley Guadarrama MD - 12/30/2022 Patient Name: KRYSTINA MARKHAM : 1955 Exam Date/Time: 12/30/2022 08:48 Procedure: XR CHEST 1 VIEW Ordering Provider: SMITH MASROOR Reason For Exam: HYPOXIA INDICATION: Hypoxia; inpatient. VIEWS: Chest portable AP semiupright-1 image COMPARISON: 12/29/2022 FINDINGS: A left-sided cardiac device is present which overlies the axilla. Round radiopaque density projects over the midline of the lower hemithorax, correlate clinically. Cardiac monitoring wires and leads are present. The trachea is midline. The cardiac silhouette is enlarged. There is thickening of the interstitium. IMPRESSION: 1. No confluent consolidation. 2. Cardiomegaly with mild pulmonary vascular congestion. Report Dictated on Electronically Signed By: Ashley Guadarrama Electronically Signed Date/Time: 12/30/2022 9:35 AM EDT [facility] Radiology Study observation (narrative) [facility] [employer] XR Chest Single viewOrdered By: Ashley Guadarrama on 12-30-2022 [employer] Work Phone: Basic metabolic 1997 panelOr dered By: Lee Dubose on 12-29-2022 Anion gap [Moles/Vol] 0 mmol/L Low 3 - 13 mmol/L [facility] [employer] [facility] Calcium [Mass/Vol] 8.0 mg/dL Low 8.4 - 10. 4 mg/dL [facility] [employer] [facility] Chloride [Moles/Vol] 84 mmol/L Low 98 - 10 7 mmol/L [facility] CO2 [Moles/Vol] 33 mmol/L High 22 - 30 mmol/L [facility] Creatinine [Mass/Vol] 0.71 mg/dL 0.66 - 1.25 mg/dL [facility] GFR/1.73 sq M.predicted MDRD (S/P/Bld) [Vol rate/Area] - [facility] Comment on above: Calculation based on the Chronic Kidney Disease Epidemiology Collaboration (CKD-EPI) equation refit without adjustment for race Glucose [Mass/Vol] 112 mg/dL High 70 - 100 mg/dL [facility] Interpretation and review of laboratory results Abnormal [facility] Potassium [Moles/Vol] 3.5 mmol/L 3.5 - 5.1 mmol/L [facility] Sodium [Moles/Vol] 117 mmol/L Critically low 135 - 1 45 mmol/L [facility] Urea nitrogen [Mass/Vol] 22 mg/dL High 9 - 20 mg/dL [facility] Basic metabolic 1998 panelon 12-29-2022 Anion gap [Moles/Vol] 1 mmol/L Low 3 - 13 mmol/L [facility] [employer] [facility] Calcium [Mass/Vol] 8.1 mg/dL Low 8.4 - 10. 4 mg/dL [facility] Chloride [Moles/Vol] 83 mmol/L Low 98 - 10 7 mmol/L [facility] [employer] [facility] CO2 [Moles/Vol] 32 mmol/L High 22 - 30 mmol/L [facility] Creatinine [Mass/Vol] 0.68 mg/dL 0.66 - 1.25 mg/dL [facility] [employer] [facility] GFR/1.73 sq M.predicted MDRD (S/P/Bld) [Vol rate/Area] - PINF [facility] [employer] [facility] Comment on above: Calculation based on the Chronic Kidney Disease Epidemiology Collaboration (CKD-EPI) equation refit without adjustment for race Glucose [Mass/Vol] 113 mg/dL High 70 - 100 mg/dL [facility] Interpretation and review of laboratory results Abnormal [facility] Potassium [Moles/Vol] 3.3 mmol/L Low 3.5 - 5.1 mmol/L [facility] Sodium [Moles/Vol] 115 mmol/L Critically low 135 - 1 45 mmol/L [facility] Urea nitrogen [Mass/Vol] 21 mg/dL High 9 - 20 mg/dL [facility] Basic metabolic 1998 panelOr dered By: Chilo Mayo on 12-29-2022 Anion gap [Moles/Vol] 4 mmol/L 3 - 13 mmol/L [facility] Calcium [Mass/Vol] 8.8 mg/dL 8.4 - 10. 4 mg/dL [facility] Chloride [Moles/Vol] 77 mmol/L Low 98 - 10 7 mmol/L [facility] CO2 [Moles/Vol] 34 mmol/L High 22 - 30 mmol/L [facility] Creatinine [Mass/Vol] 0.69 mg/dL 0.66 - 1.25 mg/dL [facility] GFR/1.73 sq M.predicted MDRD (S/P/Bld) [Vol rate/Area] - PINF [facility] Comment on above: Calculation based on the Chronic Kidney Disease Epidemiology Collaboration (CKD-EPI) equation refit without adjustment for race Glucose [Mass/Vol] 174 mg/dL High 70 - 100 mg/dL [facility] Interpretation and review of laboratory results Abnormal [facility] Potassium [Moles/Vol] 3.4 mmol/L Low 3.5 - 5.1 mmol/L [facility] Sodium [Moles/Vol] 115 mmol/L Critically low 135 - 1 45 mmol/L [facility] Urea nitrogen [Mass/Vol] 22 mg/dL High 9 - 20 mg/dL [facility] CBC W Auto Differential pane l (Bld)Ordered By: Hugo Rowan on 12-29-2022 Basophils (Bld) [#/Vol] 0.0 10*3/uL 0.0 - 0.2 10*3/uL [facility] Basophils/100 WBC (Bld) 0.2 % 0.0 - 2.0 % [facility] Eosinophils (Bld) [#/Vol] 0.0 10*3/uL 0.0 - 0.5 10*3/uL [facility] Eosinophils/100 WBC (Bld) 0.1 % Low 1.0 - 6.0 % [facility] Erythrocyte distribution width (RBC) [Ratio] 13.5 % 11.5 - 14.5 % [facility] Hematocrit (Bld) [Volume fraction] 31.2 % Low 40.0 - 52.0 % [facility] Hemoglobin (Bld) [Mass/Vol] 10.8 g/dL Low 13.0 - 18.0 g/dL [facility] Interpretation and review of laboratory results Abnormal [facility] Lymphocytes (Bld) [#/Vol] 0.5 10*3/uL Low 1.0 - 4.3 10*3/uL [facility] Lymphocytes/100 WBC (Bld) 3.4 % Low 20.0 - 40.0 % [facility] MCH (RBC) [Entitic mass] 32.9 pg 26.0 - 34.0 pg [facility] MCHC (RBC) [Mass/Vol] 34.6 % 32.0 - 36.0 % [facility] MCV (RBC) [Entitic vol] 95.1 fL 80.0 - 98.0 fL [facility] Monocytes (Bld) [#/Vol] 1.2 10*3/uL High 0.0 - 0.8 10*3/uL [facility] Monocytes/100 WBC (Bld) 8.0 % 2.0 - 10.0 % [facility] Neutrophils (Bld) [#/Vol] 13.2 10*3/uL High 1.8 - 7.0 10*3/uL [facility] Neutrophils/100 WBC (Bld) 88.3 % High 40.0 - 80.0 % [facility] Nucleated RBC/100 WBC (Bld) [Ratio] 0.0 % [facility] Platelet mean volume (Bld) [Entitic vol] 7.9 fL 7.4 - 12.4 fL [facility] Platelets (Bld) [#/Vol] 181 10*3/uL 140 - 440 10*3/uL [facility] RBC (Bld) [#/Vol] 3.28 10*6/uL Low 4.40 - 5.9 0 10*6/uL [facility] WBC (Bld) [#/Vol] 14.9 10*3/uL High 3.6 - 10.7 10*3/uL [facility] CBC W Auto Differential pane l (Bld)Ordered By: Yanique Chen on 12-29-2022 Basophils (Bld) [#/Vol] 0.0 10*3/uL 0.0 - 0.2 10*3/uL [facility] Basophils/100 WBC (Bld) 0.1 % 0.0 - 2.0 % [facility] Eosinophils (Bld) [#/Vol] 0.0 10*3/uL 0.0 - 0.5 10*3/uL [facility] Eosinophils/100 WBC (Bld) 0.0 % Low 1.0 - 6.0 % [facility] Erythrocyte distribution width (RBC) [Ratio] 13.7 % 11.5 - 14.5 % [facility] Hematocrit (Bld) [Volume fraction] 35.8 % Low 40.0 - 52.0 % [facility] Hemoglobin (Bld) [Mass/Vol] 12.6 g/dL Low 13.0 - 18.0 g/dL [facility] Interpretation and review of laboratory results Abnormal [facility] Lymphocytes (Bld) [#/Vol] 0.6 10*3/uL Low 1.0 - 4.3 10*3/uL [facility] Lymphocytes/100 WBC (Bld) 3.1 % Low 20.0 - 40.0 % [facility] MCH (RBC) [Entitic mass] 33.7 pg 26.0 - 34.0 pg [facility] MCHC (RBC) [Mass/Vol] 35.2 % 32.0 - 36.0 % [facility] MCV (RBC) [Entitic vol] 95.6 fL 80.0 - 98.0 fL [facility] Monocytes (Bld) [#/Vol] 1.4 10*3/uL High 0.0 - 0.8 10*3/uL [facility] Monocytes/100 WBC (Bld) 7.9 % 2.0 - 10.0 % [facility] Neutrophils (Bld) [#/Vol] 16.2 10*3/uL High 1.8 - 7.0 10*3/uL [facility] Neutrophils/100 WBC (Bld) 88.9 % High 40.0 - 80.0 % [facility] [employer] [facility] Nucleated RBC/100 WBC (Bld) [Ratio] 0.1 % [employer] [facility] [employer] [facility] Platelet mean volume (Bld) [Entitic vol] 8.3 fL 7.4 - 12.4 fL [facility] [employer] [facility] Platelets (Bld) [#/Vol] 238 10*3/uL 140 - 440 10*3/uL [facility] RBC (Bld) [#/Vol] 3.75 10*6/uL Low 4.40 - 5.9 0 10*6/uL [facility] WBC (Bld) [#/Vol] 18.3 10*3/uL High 3.6 - 10.7 10*3/uL [facility] CKon 12-29-2022 CK [Catalytic activity/Vol] 448 U/L High 30 - 170 U/L [facility] CT Cervical spine WO contras ton 12-29-2022 Patient Name: KRYSTINA LYNCH : 1955 Exam Date/Time: 12/29/2022 14:49 Procedure: CT CERVICAL SPINE WO IV CONTRAST Ordering Provider: LU SAMANTHA Reason For Exam: neck pain after fall EXAMINATION: CT HEAD WO IV CONTRAST, CT CERVICAL SPINE WO IV CONTRAST CLINICAL HISTORY: Fall, pain, scalp hematoma. On blood thinners. TECHNIQUE: Serial axial unenhanced images were obtained from the vertex to the foramen magnum. Spiral, high resolution axial unenhanced images were obtained from the skull base to the cervicothoracic junction with sagittal and coronal planar reconstructions. Dose reduction was employed with automated exposure control. COMPARISON: Facial bone CT 05/06/2014, head CT 11/17/2009. RESULT: BRAIN: Acute change: No evidence of an acute contusion or other acute parenchymal process. Hemorrhage: No evidence of acute intracranial hemorrhage. Mass lesion / Mass effect: There is no evidence of an intracranial mass or extraaxial fluid collection. No significant mass effect. Chronic change: Scattered patchy foci of low attenuation are present within supratentorial white matter which is a nonspecific finding but likely represents mild microvascular ischemia. Parenchyma: There is mild generalized volume loss. Ventricles: The ventricles are within normal limits of size and configuration for age. Paranasal sinuses and skull base: Mild swelling and small air locules of the left frontoparietal scalp, likely related to laceration. No underlying calvarial fracture. The visualized paranasal sinuses are grossly clear. CERVICAL: Assessment is degraded by motion. Counting reference: Craniocervical junction. Anatomic Variants: None. Alignment: 2-3 mm retrolisthesis of C3 on C4, likely degenerative. Craniocervical junction: Craniocervical junction is intact. Degenerative changes about the atlantodental interval. Osseous structures/fracture: No evidence of a lytic or blastic process in the visualized spine. No evidence of acute or chronic fracture within constraints of motion.. Cervical soft tissues: Partially imaged cardiac device. Atherosclerotic calcifications of the carotid bifurcations. Vascular patency cannot be assessed on noncontrast acquisition. The paraspinal soft tissues planes are maintained. Emphysematous changes of the partially imaged lung apices. Degenerative changes: Disc osteophyte complex with at least mild canal stenosis at C3-C4. Multilevel facet arthropathy. Degenerative changes of the partially imaged left shoulder. [facility] Guillermo Boone MD - 12/29/2022 [facility] Name[facility] 1955 [id number] Exam Date/Time: 12/29/2022 14:49 Procedure: CT CERVICAL SPINE WO IV CONTRAST Ordering Provider: LU SAMANTHA Reason For Exam: neck pain after fall EXAMINATION: CT HEAD WO IV CONTRAST, CT CERVICAL SPINE WO IV CONTRAST CLINICAL HISTORY: Fall, pain, scalp hematoma. On blood thinners. TECHNIQUE: Serial axial unenhanced images were obtained from the vertex to the foramen magnum. Spiral, high resolution axial unenhanced images were obtained from the skull base to the cervicothoracic junction with sagittal and coronal planar reconstructions. Dose reduction was employed with automated exposure control. COMPARISON: Facial bone CT 05/06/2014, head CT 11/17/2009. RESULT: BRAIN: Acute change: No evidence of an acute contusion or other acute parenchymal process. Hemorrhage: No evidence of acute intracranial hemorrhage. Mass lesion / Mass effect: There is no evidence of an intracranial mass or extraaxial fluid collection. No significant mass effect. Chronic change: Scattered patchy foci of low attenuation are present within supratentorial white matter which is a nonspecific finding but likely represents mild microvascular ischemia. Parenchyma: There is mild generalized volume loss. Ventricles: The ventricles are within normal limits of size and configuration for age. Paranasal sinuses and skull base: Mild swelling and small air locules of the left frontoparietal scalp, likely related to laceration. No underlying calvarial fracture. The visualized paranasal sinuses are grossly clear. CERVICAL: Assessment is degraded by motion. Counting reference: Craniocervical junction. Anatomic Variants: None. Alignment: 2-3 mm retrolisthesis of C3 on C4, likely degenerative. Craniocervical junction: Craniocervical junction is intact. Degenerative changes about the atlantodental interval. Osseous structures/fracture: No evidence of a lytic or blastic process in the visualized spine. No evidence of acute or chronic fracture within constraints of motion.. Cervical soft tissues: Partially imaged cardiac device. Atherosclerotic calcifications of the carotid bifurcations. Vascular patency cannot be assessed on noncontrast acquisition. The paraspinal soft tissues planes are maintained. Emphysematous changes of the partially imaged lung apices. Degenerative changes: Disc osteophyte complex with at least mild canal stenosis at C3-C4. Multilevel facet arthropathy. Degenerative changes of the partially imaged left shoulder. IMPRESSION: No CT evidence of an acute intracranial process. Chronic changes as discussed. Mild left scalp swelling, likely due to laceration. No underlying calvarial fracture. No evidence of acute cervical spine fracture within constraints of motion. No traumatic malalignment. Degenerative changes as discussed. Anatomic Variant: None. Assume 7 cervical vertebrae with counting from the craniocervical junction. Report Dictated on Electronically Signed By: Guillermo Boone Electronically Signed Date/Time: 12/29/2022 3:05 PM EDT [facility] Radiology Study observation (narrative) [facility] CT Head WO contraston 2022 [facility] 1955 [id number] Exam Date/Time: 12/29/2022 14:49 Procedure: CT HEAD WO IV CONTRAST Ordering Provider: LU SAMANTHA Reason For Exam: bleed on left scalp EXAMINATION: CT HEAD WO IV CONTRAST, CT CERVICAL SPINE WO IV CONTRAST CLINICAL HISTORY: Fall, pain, scalp hematoma. On blood thinners. TECHNIQUE: Serial axial unenhanced images were obtained from the vertex to the foramen magnum. Spiral, high resolution axial unenhanced images were obtained from the skull base to the cervicothoracic junction with sagittal and coronal planar reconstructions. Dose reduction was employed with automated exposure control. COMPARISON: Facial bone CT 05/06/2014, head CT 11/17/2009. RESULT: BRAIN: Acute change: No evidence of an acute contusion or other acute parenchymal process. Hemorrhage: No evidence of acute intracranial hemorrhage. Mass lesion / Mass effect: There is no evidence of an intracranial mass or extraaxial fluid collection. No significant mass effect. Chronic change: Scattered patchy foci of low attenuation are present within supratentorial white matter which is a nonspecific finding but likely represents mild microvascular ischemia. Parenchyma: There is mild generalized volume loss. Ventricles: The ventricles are within normal limits of size and configuration for age. Paranasal sinuses and skull base: Mild swelling and small air locules of the left frontoparietal scalp, likely related to laceration. No underlying calvarial fracture. The visualized paranasal sinuses are grossly clear. CERVICAL: Assessment is degraded by motion. Counting reference: Craniocervical junction. Anatomic Variants: None. Alignment: 2-3 mm retrolisthesis of C3 on C4, likely degenerative. Craniocervical junction: Craniocervical junction is intact. Degenerative changes about the atlantodental interval. Osseous structures/fracture: No evidence of a lytic or blastic process in the visualized spine. No evidence of acute or chronic fracture within constraints of motion.. Cervical soft tissues: Partially imaged cardiac device. Atherosclerotic calcifications of the carotid bifurcations. Vascular patency cannot be assessed on noncontrast acquisition. The paraspinal soft tissues planes are maintained. Emphysematous changes of the partially imaged lung apices. Degenerative changes: Disc osteophyte complex with at least mild canal stenosis at C3-C4. Multilevel facet arthropathy. Degenerative changes of the partially imaged left shoulder. [facility] Guillermo Boone MD - 12/29/2022 Patient Name: KRYSTINA MARKHAM : 1955 Exam Date/Time: 12/29/2022 14:49 Procedure: CT HEAD WO IV CONTRAST Ordering Provider: LU SAMANTHA Reason For Exam: bleed on left scalp EXAMINATION: CT HEAD WO IV CONTRAST, CT CERVICAL SPINE WO IV CONTRAST CLINICAL HISTORY: Fall, pain, scalp hematoma. On blood thinners. TECHNIQUE: Serial axial unenhanced images were obtained from the vertex to the foramen magnum. Spiral, high resolution axial unenhanced images were obtained from the skull base to the cervicothoracic junction with sagittal and coronal planar reconstructions. Dose reduction was employed with automated exposure control. COMPARISON: Facial bone CT 05/06/2014, head CT 11/17/2009. RESULT: BRAIN: Acute change: No evidence of an acute contusion or other acute parenchymal process. Hemorrhage: No evidence of acute intracranial hemorrhage. Mass lesion / Mass effect: There is no evidence of an intracranial mass or extraaxial fluid collection. No significant mass effect. Chronic change: Scattered patchy foci of low attenuation are present within supratentorial white matter which is a nonspecific finding but likely represents mild microvascular ischemia. Parenchyma: There is mild generalized volume loss. Ventricles: The ventricles are within normal limits of size and configuration for age. Paranasal sinuses and skull base: Mild swelling and small air locules of the left frontoparietal scalp, likely related to laceration. No underlying calvarial fracture. The visualized paranasal sinuses are grossly clear. CERVICAL: Assessment is degraded by motion. Counting reference: Craniocervical junction. Anatomic Variants: None. Alignment: 2-3 mm retrolisthesis of C3 on C4, likely degenerative. Craniocervical junction: Craniocervical junction is intact. Degenerative changes about the atlantodental interval. Osseous structures/fracture: No evidence of a lytic or blastic process in the visualized spine. No evidence of acute or chronic fracture within constraints of motion.. Cervical soft tissues: Partially imaged cardiac device. Atherosclerotic calcifications of the carotid bifurcations. Vascular patency cannot be assessed on noncontrast acquisition. The paraspinal soft tissues planes are maintained. Emphysematous changes of the partially imaged lung apices. Degenerative changes: Disc osteophyte complex with at least mild canal stenosis at C3-C4. Multilevel facet arthropathy. Degenerative changes of the partially imaged left shoulder. IMPRESSION: No CT evidence of an acute intracranial process. Chronic changes as discussed. Mild left scalp swelling, likely due to laceration. No underlying calvarial fracture. No evidence of acute cervical spine fracture within constraints of motion. No traumatic malalignment. Degenerative changes as discussed. Anatomic Variant: None. Assume 7 cervical vertebrae with counting from the craniocervical junction. Report Dictated on Electronically Signed By: Guillermo Boone Electronically Signed Date/Time: 12/29/2022 3:05 PM EDT [facility] Radiology Study observation (narrative) [facility] Drug screen panel, emergency Ordered By: Amanda Trujillo on 12-29-2022 Amphetamines Screen method >1000 ng/mL Ql (U) Negative [facility] Barbiturates Screen method >200 ng/mL Ql (U) Negative [facility] Benzodiazepines Ql (U) Negative [facility] COCAINE METAB. SCREEN Negative [facility] Methadone Screen Ql (U) Negative [facility] Opiates Screen Ql (U) Negative [facility] oxyCODONE Ql (U) Positive [facility] Phencyclidine Ql (U) Negative [facility] The expected value f or all of the drugs listed above is Negative. The following drugs or drug groups have been screened for by Immunoassay at the following thresholds: Amphetamine class (1000 ng/mL) Barbiturates (200 ng/mL) Benzodiazepines (200 ng/mL) Cocaine (300 ng/mL) Methadone (300 ng/mL) Opiates (300 ng/mL) Oxycodone (100 ng/mL) PCP (25 ng/mL) NOTE: These results are for medical treatment only. Analysis performed using non-forensic procedures. POSITIVE results are NOT confirmed by a more specific alternative method unless requested. If confirmation is needed, request confirmation under separate order. [facility] Ethanol (Bld) [Mass/Vol]on 0 12-29-2022 Ethanol [Mass/Vol] g/dL 0.000 - 0.010 g/dL [facility] Interpretation and review of laboratory results Normal [facility] Hepatic function 2000 panelo n 12-29-2022 Albumin [Mass/Vol] 4.0 g/dL 3.5 - 5.0 g/dL [facility] ALP [Catalytic activity/Vol] 112 U/L 38 - 126 U/L [facility] ALT [Catalytic activity/Vol] 30 U/L 0 - 49 U/L [facility] AST [Catalytic activity/Vol] 72 U/L High 15 - 46 U/L [facility] Bilirubin [Mass/Vol] 1.3 mg/dL 0.2 - 1 .3 mg/dL [facility] Bilirubin.conjugated [Mass/Vol] 0.0 mg/dL 0.0 - 0.3 mg/dL [facility] Protein [Mass/Vol] 7.0 g/dL 6.3 - 8.2 g/dL [facility] Laceration Repairon 12-30-19 Talia Jamal Lu 12/29/2022 5:44 PM Laceration Repair Performed by: KLAUDIA May Authorized by: Gilbert Balderas DO Consent: Consent obtained: Verbal Consent given by: Patient Risks discussed: Infection and pain Alternatives discussed: No treatment Anesthesia: Anesthesia method: Local infiltration Local anesthetic: Lidocaine 1% WITH epi Laceration details: Location: Scalp Scalp location: Frontal Length (cm): 0.6 Depth (mm): 3 Pre-procedure details: Preparation: Patient was prepped and draped in usual sterile fashion Exploration: Limited defect created (wound extended): yes Treatment: Area cleansed with: Saline and Shur-Clens Amount of cleaning: Standard Irrigation solution: Sterile saline Irrigation volume: 200 Irrigation method: Syringe Skin repair: Repair method: Sutures Suture size: 4-0 Suture material: Nylon Suture technique: Simple interrupted Number of sutures: 1 Approximation: Approximation: Close Repair type: Repair type: Simple Post-procedure details: Dressing: Open (no dressing) Procedure completion: Tolerated [facility] Talia LuJamal 12/29/2022 5:44 PM Laceration Repair Performed by: KLAUDIA May Authorized by: Gilbert Balderas DO Consent: Consent obtained: Verbal Consent given by: Patient Risks discussed: Infection and pain Anesthesia: Anesthesia method: Local infiltration Local anesthetic: Lidocaine 1% WITH epi Laceration details: Location: Scalp Scalp location: Frontal Length (cm): 3 Depth (mm): 2 Exploration: Hemostasis achieved with: Epinephrine Treatment: Area cleansed with: Shur-Clens and saline Amount of cleaning: Standard Irrigation solution: Sterile saline Irrigation volume: 200 Irrigation method: Syringe Skin repair: Repair method: Sutures Suture size: 4-0 Suture material: Nylon Suture technique: Simple interrupted Number of sutures: 1 Approximation: Approximation: Close Repair type: Repair type: Simple Post-procedure details: Dressing: Open (no dressing) Procedure completion: Tolerated well, no immediate complications [facility] Magnesiumon 12-29-2022 Magnesium [Mass/Vol] 2.1 mg/dL 1.6 - 2 .3 mg/dL [facility] No Panel Informationon 12-29 Interpretation and review of laboratory results Normal [facility] No CT evidence of an acute intracranial process. Chronic changes as discussed. Mild left scalp swelling, likely due to laceration. No underlying calvarial fracture. No evidence of acute cervical spine fracture within constraints of motion. No traumatic malalignment. Degenerative changes as discussed. Anatomic Variant: None. Assume 7 cervical vertebrae with counting from the craniocervical junction. Report Dictated on Electronically Signed By: Guillermo Boone Electronically Signed Date/Time: 12/29/2022 3:05 PM EDT [facility] Interpretation and review of laboratory results Abnormal [facility] No Panel InformationOrdered By: Guillermo Boone on 12-29-2022 [facility] Work Phone: POCT venous blood gason 12-02 Base excess Calc (BldV) [Moles/Vol] 6.6 mmol/L High -3 - 3 mmol/L [facility] CO2 (BldV) [Partial pressure] 44.2 mm[Hg] [facility] CO2 [Moles/Vol] 32.7 mmol/L High 24.0 - 28.0 mmol/L [facility] FIO2 2 [facility] Comment on above: Performed by CLIA ID : [id number] [facility] [place] ?Device: [id number] [employer] ID: [id number] HCO3 (Bld) [Moles/Vol] 31.4 mmol/L High 23.0 - 27.0 mmol/L [facility] Interpretation and review of laboratory results Abnormal [facility] Oxygen (BldV) [Partial pressure] Low [facility] Oxygen saturation in Venous blood 51.2 % Low 60.0 - 80.0 % [facility] pH (BldV) 7.460 [pH] High 7.330 - 7.430 pH [facility] Performed by: [facility], [address] [place] [id number] CLIA ID: [id number] [facility] Phosphate [Moles/Vol]on 12-02 Phosphate [Mass/Vol] 2.8 mg/dL 2.5 - 4 .5 mg/dL [facility] [employer] [facility] Troponin Ion 12-29-2022 Troponin I.cardiac [Mass/Vol] 0.019 ng/mL 0.000 - 0.034 ng/mL [facility] [employer] [facility] Troponin I.cardiac [Mass/Vol ]on 12-29-2022 Interpretation and review of laboratory results Normal [facility] Patients with high levels of Biotin oral intake (ie >5 mg/day) may have falsely decreased Troponin levels. [facility] [employer] XR Ankle - left 3 Viewson Impression: Lateral malleolar soft tissue swelling. No evidence of acute fracture, subluxation, or other acute abnormality of the left ankle. Osteopenia. Mild osteoarthropathy. Report Dictated on Electronically Signed By: Tristen Snider Electronically Signed Date/Time: 12/29/2022 3:26 PM EDT [facility] Patient Name: KRYSTINA LYNCH : 1955 Exam Date/Time: 12/29/2022 15:25 Procedure: XR ANKLE 3+ VIEWS LEFT Ordering Provider: LU SAMANTHA Reason For Exam: L ankle pain and swelling Examination: Left ankle Clinical Indication: L ankle pain and swelling Comparison: None Findings: AP, lateral, and oblique views of the left ankle demonstrate lateral malleolar soft tissue swelling. Osteopenia. There is no cortical or trabecular irregularity to suggest a fracture. Minimal likely chronic compression of the dorsal navicular. Tiny calcaneal enthesophyte/bone spur at the plantar fascial origin. Bones appear normal anatomic alignment with preservation of the ankle mortise. No radiopaque foreign body is identified. There is minimal tibiotalar, subtalar and midfoot osteoarthropathy. [facility] Tristen Snider MD - 12/29/2022 Patient Name: KRYSTINA MARKHAM : 1955 Exam Date/Time: 12/29/2022 15:25 Procedure: XR ANKLE 3+ VIEWS LEFT Ordering Provider: LU SAMANTHA Reason For Exam: L ankle pain and swelling Examination: Left ankle Clinical Indication: L ankle pain and swelling Comparison: None Findings: AP, lateral, and oblique views of the left ankle demonstrate lateral malleolar soft tissue swelling. Osteopenia. There is no cortical or trabecular irregularity to suggest a fracture. Minimal likely chronic compression of the dorsal navicular. Tiny calcaneal enthesophyte/bone spur at the plantar fascial origin. Bones appear normal anatomic alignment with preservation of the ankle mortise. No radiopaque foreign body is identified. There is minimal tibiotalar, subtalar and midfoot osteoarthropathy. IMPRESSION: Impression: Lateral malleolar soft tissue swelling. No evidence of acute fracture, subluxation, or other acute abnormality of the left ankle. Osteopenia. Mild osteoarthropathy. Report Dictated on Electronically Signed By: Tristen Snider Electronically Signed Date/Time: 12/29/2022 3:26 PM EDT [facility] Radiology Study observation (narrative) [facility] XR Ankle - left 3 ViewsOrder ed By: Tristen Snider on 12-29-2022 [facility] Work Phone: XR Chest Single viewon 12-29 Impression: 1. Mild cardiomegaly slightly worsened. Left-sided pacemaker. 2. No acute pulmonary process. Report Dictated on Electronically Signed By: Tristen Snider Electronically Signed Date/Time: 12/29/2022 3:22 PM T [facility] Name[facility] KRYST[facility]CH [facility] 1955 [id number] Exam Date/Time: 12/29/2022 15:26 Procedure: XR CHEST 1 VIEW Ordering Provider: LU SAMANTHA Reason For Exam: SOB Examination: AP portable chest Clinical Indication: SOB Comparison: 09/12/2022 Findings: Heart size mildly enlarged, slightly more so than seen previously. Left-sided pacemaker extends leads to the right atrium, right ventricle and coronary sinus. There is some hilar prominence similar to comparison likely prominent pulmonary arteries unchanged. No focal consolidation or effusion. Some chest wall deformity seen along the right scapula and ribs unchanged with chronic full-thickness rotator cuff tear on the right. [facility] Tristen Snider MD - 12/29/2022 Patient Name: KRYSTINA MARKHAM : 1955 Exam Date/Time: 12/29/2022 15:26 Procedure: XR CHEST 1 VIEW Ordering Provider: LU SAMANTHA Reason For Exam: SOB Examination: AP portable chest Clinical Indication: SOB Comparison: 09/12/2022 Findings: Heart size mildly enlarged, slightly more so than seen previously. Left-sided pacemaker extends leads to the right atrium, right ventricle and coronary sinus. There is some hilar prominence similar to comparison likely prominent pulmonary arteries unchanged. No focal consolidation or effusion. Some chest wall deformity seen along the right scapula and ribs unchanged with chronic full-thickness rotator cuff tear on the right. IMPRESSION: Impression: 1. Mild cardiomegaly slightly worsened. Left-sided pacemaker. 2. No acute pulmonary process. Report Dictated on Electronically Signed By: Tristen Snider Electronically Signed Date/Time: 12/29/2022 3:22 PM EDT [facility] Radiology Study observation (narrative) [facility] [employer] [facility] XR Pelvis 1 or 2 Viewson Impression: No evidence of fracture or subluxation of the pelvis. Osteopenia. Some osteoarthropathy. Report Dictated on Electronically Signed By: Tristen Snider Electronically Signed Date/Time: 12/29/2022 3:24 PM EDT [facility] Patient Name: KRYSTINA LYNCH : 1955 Exam Date/Time: 12/29/2022 15:25 Procedure: XR PELVIS 1-2 VIEWS Ordering Provider: LU SAMANTHA Reason For Exam: fall Examination: Pelvis Clinical Indication: fall Comparison: None Findings: Single AP view of the pelvis demonstrates no cortical or trabecular irregularity to suggest a fracture. Osteopenia. Bones appear grossly normal anatomic alignment. There is mild hip joint space narrowing and osteoarthropathy. Osteoarthropathy of the pubis with some sclerosis more pronounced on the left. Spondylosis in the lower visualized spine. Some atherosclerotic calcification left iliac and femoral arteries. [facility] Tristen Snider MD - 12/29/2022 Patient Name: KRYSTINA MARKHAM : 1955 Exam Date/Time: 12/29/2022 15:25 Procedure: XR PELVIS 1-2 VIEWS Ordering Provider: LU SAMANTHA Reason For Exam: fall Examination: Pelvis Clinical Indication: fall Comparison: None Findings: Single AP view of the pelvis demonstrates no cortical or trabecular irregularity to suggest a fracture. Osteopenia. Bones appear grossly normal anatomic alignment. There is mild hip joint space narrowing and osteoarthropathy. Osteoarthropathy of the pubis with some sclerosis more pronounced on the left. Spondylosis in the lower visualized spine. Some atherosclerotic calcification left iliac and femoral arteries. IMPRESSION: Impression: No evidence of fracture or subluxation of the pelvis. Osteopenia. Some osteoarthropathy. Report Dictated on Electronically Signed By: Tristen Snider Electronically Signed Date/Time: 12/29/2022 3:24 PM EDT [facility] Radiology Study observation (narrative) [facility] XR Shoulder - left 2 Viewson 12-29-2022 Impression: 1. Subacute, mildly displaced, angulated and impacted humeral surgical neck fracture with slight inferior pseudosubluxation from joint effusion. Displacement slightly worsened from comparison. Report Dictated on Electronically Signed By: Tristen Snider Electronically Signed Date/Time: 12/29/2022 3:30 PM EDT [facility] Patient Name: KRYSTINA LYNCH : 1955 Exam Date/Time: 12/29/2022 15:25 Procedure: XR SHOULDER 2+ VIEWS LEFT Ordering Provider: LU SAMANTHA Reason For Exam: recent fx, fell again Examination: XR SHOULDER 2+ VIEWS LEFT Clinical: recent fx, fell again Comparison: 12/26/2022 Findings: Three views left shoulder. Osteopenia. Proximal humeral surgical neck fracture. This is mildly impacted and displaced. The distal fracture fragment is displaced posteriorly 0.9 cm. Mild impaction more anteriorly. There is minimal apex dorsal angulation. Small fracture fragments are seen posterior to the shoulder. There is inferior humeral pseudosubluxation consistent with joint effusion, hemarthrosis. No gross evidence of glenoid fracture. There is [id number] acromioclavicular and mild glenohumeral osteoarthropathy. Left-sided pacemaker, leads incompletely evaluated. There is left-sided remote clavicle fracture deformity more centrally. Suspected healed left-sided rib fractures. [facility] Tristen Snider MD - 12/29/2022 Patient Name: KRYSTINA MARKHAM : 1955 [id number] Exam Date/Time: 12/29/2022 15:25 Procedure: XR SHOULDER 2+ VIEWS LEFT Ordering Provider: LU SAMANTHA Reason For Exam: recent fx, fell again Examination: XR SHOULDER 2+ VIEWS LEFT Clinical: recent fx, fell again Comparison: 12/26/2022 Findings: Three views left shoulder. Osteopenia. Proximal humeral surgical neck fracture. This is mildly impacted and displaced. The distal fracture fragment is displaced posteriorly 0.9 cm. Mild impaction more anteriorly. There is minimal apex dorsal angulation. Small fracture fragments are seen posterior to the shoulder. There is inferior humeral pseudosubluxation consistent with joint effusion, hemarthrosis. No gross evidence of glenoid fracture. There is [id number] acromioclavicular and mild glenohumeral osteoarthropathy. Left-sided pacemaker, leads incompletely evaluated. There is left-sided remote clavicle fracture deformity more centrally. Suspected healed left-sided rib fractures. IMPRESSION: Impression: 1. Subacute, mildly displaced, angulated and impacted humeral surgical neck fracture with slight inferior pseudosubluxation from joint effusion. Displacement slightly worsened from comparison. Report Dictated on Electronically Signed By: Tristen Snider Electronically Signed Date/Time: 12/29/2022 3:30 PM EDT [facility] Radiology Study observation (narrative) [facility] XR Shoulder - left 2 Viewson 12-26-2022 Findings and impress ion: Left shoulder multiple views. Acute fracture humeral neck evident. No dislocation. No additional fracture seen. Report Dictated on Electronically Signed By: Ravi Alonzo Electronically Signed Date/Time: 12/26/2022 10:36 AM EDT [facility] Patient Name: KRYSTINA LYNCH : 1955 Exam Date/Time: 12/26/2022 10:32 Procedure: XR SHOULDER 2+ VIEWS LEFT Ordering Provider: FOOTE GREGORY Reason For Exam: Left shoulder pain from direct trauma from the pool stick Indication: Left shoulder pain. [facility] Ravi Alonzo MD - 12/26/2022 Patient Name: KRYSTINA MARKHAM : 1955 Exam Date/Time: 12/26/2022 10:32 Procedure: XR SHOULDER 2+ VIEWS LEFT Ordering Provider: FOOTE GREGORY Reason For Exam: Left shoulder pain from direct trauma from the pool stick Indication: Left shoulder pain. IMPRESSION: Findings and impression: Left shoulder multiple views. Acute fracture humeral neck evident. No dislocation. No additional fracture seen. Report Dictated on Electronically Signed By: Ravi Alonzo Electronically Signed Date/Time: 12/26/2022 10:36 AM EDT [facility] Radiology Study observation (narrative) [facility] XR Shoulder - left 2 ViewsOr dered By: Ravi Alonzo on 12-26-2022 [facility] Work Phone: Basic metabolic 1998 panelon 09-14-2022 Anion gap [Moles/Vol] 6 mmol/L 3 - 13 mmol/L [facility] Calcium [Mass/Vol] 9.8 mg/dL 8.4 - 10. 4 mg/dL [facility] Chloride [Moles/Vol] 93 mmol/L Low 98 - 10 7 mmol/L [facility] CO2 [Moles/Vol] 29 mmol/L 22 - 30 mmol/L [facility] Creatinine [Mass/Vol] 0.71 mg/dL 0.66 - 1.25 mg/dL [facility] GFR/1.73 sq M.predicted MDRD (S/P/Bld) [Vol rate/Area] - PINF [facility] Comment on above: Calculation based on the Chronic Kidney Disease Epidemiology Collaboration (CKD-EPI) equation refit without adjustment for race Glucose [Mass/Vol] 130 mg/dL High 70 - 100 mg/dL [facility] Interpretation and review of laboratory results Abnormal [facility] Potassium [Moles/Vol] 3.6 mmol/L 3.5 - 5.1 mmol/L [facility] Sodium [Moles/Vol] 128 mmol/L Low 135 - 145 mmol/L [facility] Urea nitrogen [Mass/Vol] 20 mg/dL 9 - 20 mg/dL [facility] CBC W Auto Differential pane l (Bld)Ordered By: Andrew Carmen on 09-14-2022 Basophils (Bld) [#/Vol] 0.2 10*3/uL 0.0 - 0.2 10*3/uL [facility] Basophils/100 WBC (Bld) 1.0 % 0.0 - 2.0 % [facility] Eosinophils (Bld) [#/Vol] 0.0 10*3/uL 0.0 - 0.5 10*3/uL [facility] Eosinophils/100 WBC (Bld) 0.2 % Low 1.0 - 6.0 % [facility] Erythrocyte distribution width (RBC) [Ratio] 14.3 % 11.5 - 14.5 % [facility] Hematocrit (Bld) [Volume fraction] 44.3 % 40.0 - 52.0 % [facility] Hemoglobin (Bld) [Mass/Vol] 15.0 g/dL 13.0 - 18.0 g/dL [facility] Interpretation and review of laboratory results Abnormal [facility] Lymphocytes (Bld) [#/Vol] 1.1 10*3/uL 1.0 - 4.3 10*3/uL [facility] Lymphocytes/100 WBC (Bld) 7.7 % Low 20.0 - 40.0 % [facility] MCH (RBC) [Entitic mass] 31.5 pg 26.0 - 34.0 pg [facility] MCHC (RBC) [Mass/Vol] 33.8 % 32.0 - 36.0 % [facility] MCV (RBC) [Entitic vol] 93.3 fL 80.0 - 98.0 fL [facility] Monocytes (Bld) [#/Vol] 1.5 10*3/uL High 0.0 - 0.8 10*3/uL [facility] Monocytes/100 WBC (Bld) 10.1 % High 2.0 - 10.0 % [facility] Neutrophils (Bld) [#/Vol] 11.7 10*3/uL High 1.8 - 7.0 10*3/uL [facility] Neutrophils/100 WBC (Bld) 81.0 % High 40.0 - 80.0 % [facility] Nucleated RBC/100 WBC (Bld) [Ratio] 0.0 % [facility] Platelet mean volume (Bld) [Entitic vol] 7.3 fL Low 7.4 - 12.4 fL [facility] Platelets (Bld) [#/Vol] 237 10*3/uL 140 - 440 10*3/uL [facility] RBC (Bld) [#/Vol] 4.75 10*6/uL 4.40 - 5.9 0 10*6/uL [facility] WBC (Bld) [#/Vol] 14.5 10*3/uL High 3.6 - 10.7 10*3/uL [facility] Basic metabolic 1998 panelon 09-13-2022 Anion gap [Moles/Vol] 11 mmol/L 3 - 13 mmol/L [facility] Calcium [Mass/Vol] 9.4 mg/dL 8.4 - 10. 4 mg/dL [facility] Chloride [Moles/Vol] 92 mmol/L Low 98 - 10 7 mmol/L [facility] CO2 [Moles/Vol] 23 mmol/L 22 - 30 mmol/L [facility] Creatinine [Mass/Vol] 0.61 mg/dL Low 0.66 - 1.25 mg/dL [facility] GFR/1.73 sq M.predicted MDRD (S/P/Bld) [Vol rate/Area] - PINF [facility] Comment on above: Calculation based on the Chronic Kidney Disease Epidemiology Collaboration (CKD-EPI) equation refit without adjustment for race Glucose [Mass/Vol] 262 mg/dL High 70 - 100 mg/dL [facility] Interpretation and review of laboratory results Abnormal [facility] Potassium [Moles/Vol] 4.1 mmol/L 3.5 - 5.1 mmol/L [facility] Sodium [Moles/Vol] 126 mmol/L Low 135 - 145 mmol/L [facility] Urea nitrogen [Mass/Vol] 16 mg/dL 9 - 20 mg/dL [facility] CBC W Auto Differential pane l (Bld)Ordered By: Arely Howard on 09-13-2022 Basophils (Bld) [#/Vol] 0.0 10*3/uL 0.0 - 0.2 10*3/uL [facility] Basophils/100 WBC (Bld) 0.8 % 0.0 - 2.0 % [facility] Eosinophils (Bld) [#/Vol] 0.0 10*3/uL 0.0 - 0.5 10*3/uL [facility] Eosinophils/100 WBC (Bld) 0.1 % Low 1.0 - 6.0 % [facility] Erythrocyte distribution width (RBC) [Ratio] 14.3 % 11.5 - 14.5 % [facility] Hematocrit (Bld) [Volume fraction] 46.3 % 40.0 - 52.0 % [facility] Hemoglobin (Bld) [Mass/Vol] 16.0 g/dL 13.0 - 18.0 g/dL [facility] Interpretation and review of laboratory results Abnormal [facility] Lymphocytes (Bld) [#/Vol] 0.4 10*3/uL Low 1.0 - 4.3 10*3/uL [facility] Lymphocytes/100 WBC (Bld) 6.6 % Low 20.0 - 40.0 % [facility] MCH (RBC) [Entitic mass] 32.4 pg 26.0 - 34.0 pg [facility] MCHC (RBC) [Mass/Vol] 34.5 % 32.0 - 36.0 % [facility] MCV (RBC) [Entitic vol] 93.9 fL 80.0 - 98.0 fL [facility] Monocytes (Bld) [#/Vol] 0.1 10*3/uL 0.0 - 0.8 10*3/uL [facility] Monocytes/100 WBC (Bld) 2.6 % 2.0 - 10.0 % [facility] Neutrophils (Bld) [#/Vol] 5.1 10*3/uL 1.8 - 7.0 10*3/uL [facility] Neutrophils/100 WBC (Bld) 89.9 % High 40.0 - 80.0 % [facility] Nucleated RBC/100 WBC (Bld) [Ratio] 0.1 % [facility] Platelet mean volume (Bld) [Entitic vol] 7.5 fL 7.4 - 12.4 fL [facility] Platelets (Bld) [#/Vol] 248 10*3/uL 140 - 440 10*3/uL [facility] RBC (Bld) [#/Vol] 4.93 10*6/uL 4.40 - 5.9 0 10*6/uL [facility] WBC (Bld) [#/Vol] 5.6 10*3/uL 3.6 - 10.7 10*3/uL [facility] Laboratory - Chemistry and C hemistry - challengeon 09-13-2022 Procalcitonin [Mass/Vol] 0.06 ng/mL 0.00 - 0.09 ng/mL [facility] Magnesium [Mass/Vol] 1.6 mg/dL 1.6 - 2 .3 mg/dL [facility] Laboratory - Drug toxicology Ordered By: Patricia Dietrich on 09-13-2022 Amphetamines Ql (U) Negative Negative [facility] Benzodiazepines Ql (U) Negative Negative [facility] Cocaine Ql (U) Negative Negative [facility] Ethanol [Mass/Vol] Negative Negative [facility] Methadone Ql (U) Negative Negative [facility] Opiates Ql (U) Negative Negative [facility] Natriuretic peptide B [Mass/ Vol]on 09-13-2022 Interpretation and review of laboratory results Abnormal [facility] Natriuretic peptide B (Bld) [Mass/Vol] 2015 pg/mL High 0 - 125 pg/mL [facility] No Panel InformationOrdered By: Patricia Dietrich on 09-13-2022 BARBITURATES Negative Negative [facility] BUPRENORPHINE SCREEN Negative Negative [facility] FENTANYL Negative Negative [facility] OXYCODONE/OXYMORPHONE Negative Negative [facility] PCP Negative Negative [facility] THC Negative Negative [facility] The expected value f or the drugs listed above is Negative. The following drugs or drug groups have been screened for by Immunoassay at the following thresholds: Amphetamine class(1000ng/mL) Barbituates(200ng/mL) Benzodiazepines(200ng/mL ) Cocaine(300ng/mL) Ethanol (50 ng/mL) Methadone(300ng/mL) Opiates(300ng/mL) Oxycodone(100ng/mL) PCP(25ng/mL) Buprenorphine(5ng/mL) THC(50ng/mL) Fentanyl(1ng/mL) Positive results are NOT confirmed by a more specific alternative method unless requested. If confirmation is needed, request confirmation under separate order. NOTE: These results are for medical treatment only. Analysis performed using non-forensic procedures. [facility] No Panel Informationon 09-13 ETHYL GLUCURONIDE, URINE Positive Negative [facility] Ethyl Glucuronide parada s been screened by Immunoassay at a 500 ng/mL threshold. POSITIVE results are not confirmed by a more specific alternative method unless requested. If confirmation is needed, request confirmation under separate order. NOTE: These results are for medical treatment only. Analysis performed using non-forensic procedures. This test has not been cleared by the US Food and Drug Administration (FDA). The FDA has determined that such clearance or approval is not necessary. The performance characteristics have been determined by the clinical laboratories of [facility]. [facility] Interpretation and review of laboratory results Normal [facility] Phosphate [Moles/Vol]on 09-02 Phosphate [Mass/Vol] 4.2 mg/dL 2.5 - 4 .5 mg/dL [facility] Procalcitonin [Mass/Vol]on 0 09-13-2022 Interpretation and review of laboratory results Normal [facility] PCT <0.50 = Low risk of severe sepsis and/or septic shock. PCT >2.00 = High risk of severe sepsis and/or septic shock. [facility] Respiratory pathogens DNA an d RNA panel GEO+probe (Nph)on 09-13-2022 Adenovirus Not detected Not Detected [facility] B. pertussis DNA GEO+probe Ql (Unsp spec) Not detected Not Detected [facility] Bordetella parapertussis Not detected Not Detected [facility] Chlamydia pneumoniae Not detected Not Detected [facility] Coronavirus 229E Not detected Not Detected [facility] Coronavirus HKU1 Not detected Not Detected [facility] Coronavirus NL63 Not detected Not Detected [facility] Coronavirus OC43 Not detected Not Detected [facility] FLUAV RNA GEO+non-probe Ql (Nph) Not detected Not Detected [facility] FLUBV RNA GEO+non-probe Ql (Nph) Not detected Not Detected [facility] Human Metapneumovirus Not detected Not Detected [facility] Human Rhinovirus/Enterovirus Not detected Not Detected [facility] Interpretation and review of laboratory results Normal [facility] Mycoplasma pneumoniae Not detected Not Detected [facility] Parainfluenza 1 Not detected Not Detected [facility] Parainfluenza 2 Not detected Not Detected [facility] Parainfluenza 3 Not detected Not Detected [facility] Parainfluenza 4 Not detected Not Detected [facility] Respiratory Syncytial Virus Not detected Not Detected [facility] SARS-CoV-2 (COVID-19) RNA GEO+non-probe Ql (Nph) Not detected Not Detected [facility] Methodology: Multipl ex PCR [facility] Basic metabolic 1998 panelon 09-12-2022 Anion gap [Moles/Vol] 9 mmol/L 3 - 13 mmol/L [facility] Calcium [Mass/Vol] 9.7 mg/dL 8.4 - 10. 4 mg/dL [facility] Chloride [Moles/Vol] 91 mmol/L Low 98 - 10 7 mmol/L [facility] CO2 [Moles/Vol] 26 mmol/L 22 - 30 mmol/L [facility] Creatinine [Mass/Vol] 0.75 mg/dL 0.66 - 1.25 mg/dL [facility] GFR/1.73 sq M.predicted MDRD (S/P/Bld) [Vol rate/Area] - PINF [facility] Comment on above: Calculation based on the Chronic Kidney Disease Epidemiology Collaboration (CKD-EPI) equation refit without adjustment for race Glucose [Mass/Vol] 151 mg/dL High 70 - 100 mg/dL [facility] Interpretation and review of laboratory results Abnormal [facility] Potassium [Moles/Vol] 3.8 mmol/L 3.5 - 5.1 mmol/L [facility] Sodium [Moles/Vol] 126 mmol/L Low 135 - 145 mmol/L [facility] Urea nitrogen [Mass/Vol] 19 mg/dL 9 - 20 mg/dL [facility] CBC W Auto Differential pane l (Bld)Ordered By: Amanda Trujillo on 09-12-2022 Basophils (Bld) [#/Vol] 0.1 10*3/uL 0.0 - 0.2 10*3/uL [facility] Basophils/100 WBC (Bld) 1.4 % 0.0 - 2.0 % [facility] Eosinophils (Bld) [#/Vol] 0.1 10*3/uL 0.0 - 0.5 10*3/uL [facility] Eosinophils/100 WBC (Bld) 1.4 % 1.0 - 6.0 % [facility] Erythrocyte distribution width (RBC) [Ratio] 14.2 % 11.5 - 14.5 % [facility] Hematocrit (Bld) [Volume fraction] 44.6 % 40.0 - 52.0 % [facility] Hemoglobin (Bld) [Mass/Vol] 15.5 g/dL 13.0 - 18.0 g/dL [facility] Interpretation and review of laboratory results Abnormal [facility] Lymphocytes (Bld) [#/Vol] 1.3 10*3/uL 1.0 - 4.3 10*3/uL [facility] Lymphocytes/100 WBC (Bld) 14.2 % Low 20.0 - 40.0 % [facility] MCH (RBC) [Entitic mass] 32.2 pg 26.0 - 34.0 pg [facility] MCHC (RBC) [Mass/Vol] 34.7 % 32.0 - 36.0 % [facility] MCV (RBC) [Entitic vol] 92.8 fL 80.0 - 98.0 fL [facility] Monocytes (Bld) [#/Vol] 0.9 10*3/uL High 0.0 - 0.8 10*3/uL [facility] Monocytes/100 WBC (Bld) 10.1 % High 2.0 - 10.0 % [facility] Neutrophils (Bld) [#/Vol] 6.8 10*3/uL 1.8 - 7.0 10*3/uL [facility] Neutrophils/100 WBC (Bld) 72.9 % 40.0 - 80.0 % [facility] Nucleated RBC/100 WBC (Bld) [Ratio] 0.0 % [facility] Platelet mean volume (Bld) [Entitic vol] 7.0 fL Low 7.4 - 12.4 fL [facility] Platelets (Bld) [#/Vol] 250 10*3/uL 140 - 440 10*3/uL [facility] RBC (Bld) [#/Vol] 4.81 10*6/uL 4.40 - 5.9 0 10*6/uL [facility] WBC (Bld) [#/Vol] 9.3 10*3/uL 3.6 - 10.7 10*3/uL [facility] Laboratory - Chemistry and C hemistry - challengeon 09-12-2022 Troponin I.cardiac [Mass/Vol] 0.016 ng/mL 0.000 - 0.034 ng/mL [facility] Base excess Calc (BldV) [Moles/Vol] 2.6 mmol/L -3 - 3 mmol/L [facility] CO2 (BldV) [Partial pressure] 42.2 mm[Hg] [facility] CO2 [Moles/Vol] 28.8 mmol/L High 24.0 - 28.0 mmol/L [facility] HCO3 (Bld) [Moles/Vol] 27.5 mmol/L High 23.0 - 27.0 mmol/L [facility] Oxygen (BldV) [Partial pressure] 31.5 mm[Hg] [facility] pH (BldV) 7.422 [pH] 7.330 - 7.430 pH [facility] No Panel Informationon 09-12 P [place] 0 degrees [facility] VA Interval 61 ms [facility] QRS [place] -88 degrees [facility] QRSD Interval 196 ms [facility] QT Interval 564 ms [facility] QTC Interval 617 ms [facility] T Wave [place] degrees [facility] Ventricular-paced complexes Biventricular paced rhythm Electronically Signed On 09-12-2022 23:12:30 EST by Tiffanie Dooley DO - 09/12/2022 IMPRESSION: Ventricular-paced complexes Biventricular paced rhythm Electronically Signed On 09-12-2022 23:12:30 EST by Paola Gaffney [facility] FIO2 21 [facility] Comment on above: Performed by CLIA ID : [id number] [place], [place] ?Device: [id number] [place] Body Repairman ID: [id number] Interpretation and review of laboratory results Abnormal [facility] Performed by: [facility], [address] [place] [id number] CLIA ID: [id number] [facility] Troponin I.cardiac [Mass/Vol ]on 09-12-2022 Interpretation and review of laboratory results Normal [facility] Patients with high levels of Biotin oral intake (ie >5 mg/day) may have falsely decreased Troponin levels. [facility] Vital signson 09-12-2022 Heart rate 72 /min bpm [facility] Oxygen saturation in Venous blood 61.8 % 60.0 - 80.0 % [facility] XR Chest Single viewon 09-12 1. Stable examination. No acute findings. Report Dictated on Electronically Signed By: Alirio Gamboa Electronically Signed Date/Time: 09/12/2022 9:40 PM EST [facility] Patient Name: KRYSTINA LYNCH Exam Date/Time: 09/12/2022 21:35 Procedure: XR CHEST 1 VIEW Ordering Provider: GAFFNEY JAKLYN Reason For Exam: CHEST PORTABLE CLINICAL INDICATION: DYSPNEA TECHNIQUE: Portable chest x-ray(s). COMPARISON: None. FINDINGS: Left-sided cardiac device again noted and mild cardiomegaly, stable. Lungs are hyperinflated. No significant vascular congestion. No focal consolidation or apparent pneumothorax. Bilateral rotator cuff insufficiency and multiple, old right rib fracture deformities again noted. [facility] Alirio Gamboa MD - 09/12/2022 Patient Name: KRYSTINA MARKHAM Exam Date/Time: 09/12/2022 21:35 Procedure: XR CHEST 1 VIEW Ordering Provider: GAFFNEY JAKLYN Reason For Exam: CHEST PORTABLE CLINICAL INDICATION: DYSPNEA TECHNIQUE: Portable chest x-ray(s). COMPARISON: None. FINDINGS: Left-sided cardiac device again noted and mild cardiomegaly, stable. Lungs are hyperinflated. No significant vascular congestion. No focal consolidation or apparent pneumothorax. Bilateral rotator cuff insufficiency and multiple, old right rib fracture deformities again noted. IMPRESSION: 1. Stable examination. No acute findings. Report Dictated on Electronically Signed By: Alirio Gamboa Electronically Signed Date/Time: 09/12/2022 9:40 PM EST [facility] Radiology Study observation (narrative) [employer] XR Chest Single viewOrdered By: Alirio Gamboa on 09-12-2022 [employer] Work Phone: VL Aorta Iliac Duplex Scr fo r Medicareon 09-27-2021 VL Aorta Iliac Duplex Scr for Medicare Patient Name: KRYSTINA MARKHAM Ultrasound ACCESSION EXAM DATE/TIME PROCEDURE ORDERING PROVIDER [id number] 09/27/2021 10:08 EST VL Aorta Iliac Duplex MD CECILIA, Scr for Medicare [facility] CPT code 99182 Reason For Exam (VL Aorta Iliac Duplex Scr for Medicare) Tobacco abuse, evaluate for AAA Report [facility] Aortic Screening for Medicare Patient Rashi : 1955 Study 09/27/2021 Name: Krystina Alonso (66yrs) Date: Patient [id number] Age: 66 Account: [id number] ID: Gender: M Loc: BP: Ordering Physician: Carmine Andrade [place] Utility Worker: Alcon Dominguez RVT Interpreting Physician: Ravi Bo MD Location: [facility] Indications: Z72.0. Conclusions 1. Study is negative for aneurysm and stenosis involving the abdominal aorta. 2. Study is negative for aneurysm and stenosis involving the right common iliac artery. 3. Study is negative for aneurysm and stenosis involving the left common iliac artery. History: Risk factors: Current tobacco use. Hypertension. Study data: Aortic screening for Medicare. Duplex scan, grayscale 2D imaging, color Doppler imaging, and spectral Doppler analysis. Location: Vascular laboratory. Objective: Diagnostic evaluation. Procedure: A vascular evaluation was performed with the patient in the supine position. Images were obtained using a [employer]9 vascular Ultrasound Report ultrasound machine. The study was technically limited due to patient anatomy and bowel gas. Arterial flow: + -+ +-------- -----+ + +Location +Diameter AP+Diameter Tr+PSV(cm/sec)+ + -+ +-------- -----+ + +Abdominal aorta , prox +2.34 cm +2.38 +74 + + -+ +-------- -----+ + +Abdominal aorta , mid +2.13 cm +2.07 +65 + + -+ +-------- -----+ + +Abdominal aorta , distal+1.75 cm +1.79 +80 + + -+ +-------- -----+ + +R BOB , distal +0.88 cm +0.93 +120 + + -+ +-------- -----+ + +R IIA + +--------- ----+66 + + -+ +-------- -----+ + +R EIA + +--------- ----+118 + + -+ +-------- -----+ + +L BOB , distal +0.91 cm +1.02 +93 + + -+ +-------- -----+ + +L IIA + +--------- ----+207 + + -+ +-------- -----+ + +L EIA + +--------- ----+82 + + -+ +-------- -----+ + Prepared and electronically signed by Ravi Bo MD 09/28/2021 13:43 Final Dictated: 09/28/2021 1:43 pm Dictating Physician: RAVI BO Signed Date and Time: 09/28/2021 1:43 pm Signed by: RAVI BO Cardiovascular ACCESSION EXAM DATE/TIME PROCEDURE [id number] 09/27/2021 10:08 EST VL Aorta Iliac Duplex Scr for Medicare CPT code 91235 Reason For Exam (VL Aorta Iliac Duplex Scr for Medicare) Tobacco abuse, evaluate for AAA Report [facility] Aortic Screening for Medicare Patient Rashi, : 1955 Study 09/27/2021 Name: Krystina Alonso (66yrs) Date: Cardiovascular Report Patient [id number] Age: 66 Account: [id number] ID: Gender: M Loc: BP: Ordering Physician: Carmine Andrade [place] Utility Worker: Alcon Dominguez RVT Interpreting Physician: Ravi Bo MD Location: [facility] Indications: Z72.0. Conclusions 1. Study is negative for aneurysm and stenosis involving the abdominal aorta. 2. Study is negative for aneurysm and stenosis involving the right common iliac artery. 3. Study is negative for aneurysm and stenosis involving the left common iliac artery. History: Risk factors: Current tobacco use. Hypert (more content not included)... Normal [facility] CR Foot Complete 3+ Views Meme alfonso 09-20-2021 CR Foot Complete 3+ Views Right Patient Name: KRYSTINA MARKHAM Diagnostic Radiology ACCESSION EXAM DATE/TIME PROCEDURE ORDERING PROVIDER [id number] 09/20/2021 10:20 EST CR Foot Complete 3+ BRIDGETTE KNOWLES, Views Right TASIA Baer CPT code 74302 Reason For Exam (CR Foot Complete 3+ Views Right) Right foot pain Report EXAMINATION: Right foot three views INDICATION: Right foot pain, recent surgery FINDINGS: There is irregularity involving the distal portion of the proximal second phalanx, which appears new compared to the 08/02/2021 study. The bones are osteopenic. Hammertoe deformity of the second digit is present. There are at least moderate degenerative changes at the first MTP joint with hallux valgus deformity. The soft tissues are grossly unremarkable. IMPRESSION: Presumed postsurgical changes involving the distal portion of the proximal second phalanx. Report Dictated on Final Dictating Physician: MD BONILLA KRIKOR Signed Date and Time: 09/20/2021 11:00 am Signed by: MD BONILLA KRIKOR Transcribed Date and Time: 09/20/2021 11:01 Normal [facility] Basic Metabolic Panelon 12-2 Anion gap [Moles/Vol] 3 mmol/L Normal 3-13 [facility] Comment on above: Performed By: #### B MP3M, HEMDF #### [facility] [address] [place] [address] Calcium [Mass/Vol] 8.8 mg/dL Normal 8.4-10.4 [facility] Comment on above: Performed By: #### B MP3M, HEMDF #### [facility] [address] [place] [address] CO2 [Moles/Vol] 25 mmol/L Normal 22-30 [facility] Comment on above: Performed By: #### B MP3M, HEMDF #### [facility] [address] [place] [address] Glucose [Mass/Vol] 108 mg/dL High 70-100 [facility] Comment on above: Performed By: #### B MP3M, HEMDF #### [facility] [address] [place] [address] Urea nitrogen [Mass/Vol] 17 mg/dL Normal 7-17 [facility] Comment on above: Performed By: #### B MP3M, HEMDF #### [facility] [address] [place] [address] Creatinine [Mass/Vol] 0.55 mg/dL Normal 0.52-1.25 [facility] Comment on above: Performed By: #### B MP3M, HEMDF #### [facility] [address] [place] [address] eGFR OTHER > 90.0 Normal >60 [facility] Comment on above: Result Comment: KDIG O guidelines provide the following GFR categories: Stage GFR(ml/min/1.73 m2) Terms G1 >=90 Normal or high G2 60-89 Mildly decreased* G3a 45-59 Mildly to moderately decreased G3b 30-44 Moderately to severely decreased G4 15-29 Severely decreased G5 <15 Kidney failure *Relative to young adult level. In the absence of evidence of kidney damage, neither GFR category G1 nor G2 fulfill the criteria for CKD. The CKD-EPI equation is validated in individuals 18 years of age and older. Currently the best equation for estimating glomerular filtration rate (GFR) from serum creatinine in children is the Bedside Hirsch equation. It is less accurate in patients with extremes of muscle mass, restriction of dietary protein, ingestion of creatine, extra-renal metabolism of creatinine, or treatment with medications that affect renal tubular creatinine secretion. Performed By: #### B MP3M, HEMDF #### [facility] [address] [place] [address] GFR/1.73 sq M.predicted among blacks MDRD (S/P/Bld) [Vol rate/Area] mL/min/{1.73_m2} Normal >60 [facility] Comment on above: Performed By: #### B MP3M, HEMDF #### [facility] [address] [place] [address] Potassium [Moles/Vol] 4.0 mmol/L Normal 3.5-5.1 [facility] Comment on above: Performed By: #### B MP3M, HEMDF #### [facility] [address] [place] [address] Sodium [Moles/Vol] 125 mmol/L Low 135-145 [facility] Comment on above: Performed By: #### B MP3M, HEMDF #### [facility] [address] [place] [address] Chloride [Moles/Vol] 97 mmol/L Low 98-107 [facility] Comment on above: Performed By: #### B MP3M, HEMDF #### [facility] [address] [place] [address] CR Chest PA/LATon 08-25-2021 CR Chest PA/LAT Patient Name: KRYSTINA LYNCH Diagnostic Radiology ACCESSION EXAM DATE/TIME PROCEDURE ORDERING PROVIDER [id number] 08/25/2021 08:32 EST CR Chest PA and LAT NEYMAR GOMEZ, STACEY Zelaya CPT code 51016 Reason For Exam (CR Chest PA and LAT) f/u pneumothorax Report CHEST: CLINICAL INDICATION: Follow-up pneumothorax TECHNIQUE: PA and Lateral COMPARISON: Chest radiograph 08/23/2021, chest CT dated 08/24/2021 FINDINGS: There is a tiny left apical pneumothorax, not significantly changed from the prior chest CT. There is trace left pleural effusion with basilar atelectasis. There is hyperaeration of lungs with flattening of the diaphragm, consistent with changes of COPD. Stable cardiomediastinal contours. Left-sided multilead AICD in place. Degenerative change of the thoracic spine and shoulders is noted. IMPRESSION: 1. Stable tiny left apical pneumothorax. 2. Trace left pleural effusion with left basilar atelectasis. Report Dictated on Final Dictating Physician: MD ERAZO KEVIN Signed Date and Time: 08/25/2021 8:38 am Signed by: MD ERAZO KEVIN Transcribed Date and Time: 08/25/2021 8:39 Normal [facility] Hemogram w/ Autodiffon 08-25 Abs Baso Cnt 0.1 10*3/uL Normal 0.0-0.2 [facility] Comment on above: Performed By: #### B MP3M, HEMDF #### [facility] [address] [place] [address] Abs Neutrophile Cnt 5.8 10*3/uL Normal 1.8-7.0 [facility] Comment on above: Performed By: #### B MP3M, HEMDF #### [facility] [address] [place] [address] Basophils/100 WBC (Bld) 1.1 % Normal 0.0-2.0 [facility] Comment on above: Performed By: #### B MP3M, HEMDF #### [facility] [address] [place] [address] Eosinophils (Bld) [#/Vol] 0.3 10*3/uL Normal 0.0-0.5 [facility] Comment on above: Performed By: #### B MP3M, HEMDF #### [facility] [address] [place] [address] Eosinophils/100 WBC (Bld) 3.6 % Normal 1.0-6.0 [facility] Comment on above: Performed By: #### B MP3M, HEMDF #### [facility] [address] [place] [address] Erythrocyte distribution width (RBC) [Ratio] 12.8 % Normal 11.5-14.5 [facility] Comment on above: Performed By: #### B MP3M, HEMDF #### [facility] [address] [place] [address] Granulocytes/100 WBC (Bld) 70.7 % Normal 40.0-80.0 [facility] Comment on above: Performed By: #### B MP3M, HEMDF #### [facility] [address] [place] [address] Hematocrit (Bld) [Volume fraction] 39.3 % Low 40.0-52.0 [facility] Comment on above: Performed By: #### B MP3M, HEMDF #### [facility] [address] [place] [address] Hemoglobin (Bld) [Mass/Vol] 13.2 g/dL Normal 13.0-18.0 [facility] Comment on above: Performed By: #### B MP3M, HEMDF #### [facility] [address] [place] [address] Lymphocytes (Bld) [#/Vol] 1.2 10*3/uL Normal 1.0-4.3 [facility] Comment on above: Performed By: #### B MP3M, HEMDF #### [facility] [address] [place] [address] Lymphocytes/100 WBC (Bld) 14.7 % Low 20.0-40.0 [facility] Comment on above: Performed By: #### B MP3M, HEMDF #### [facility] [address] [place] [address] MCH (RBC) [Entitic mass] 31.8 pg Normal 26.0-34.0 [facility] Comment on above: Performed By: #### B MP3M, HEMDF #### [facility] [address] [place] [address] MCHC 33.6 % Normal 32.0-36.0 [facility] Comment on above: Performed By: #### B MP3M, HEMDF #### [facility] [address] [place] [address] MCV (RBC) [Entitic vol] 94.7 fL Normal 80.0-98.0 [facility] Comment on above: Performed By: #### B MP3M, HEMDF #### [facility] [address] [place] [address] Monocytes (Bld) [#/Vol] 0.8 10*3/uL Normal 0.0-0.8 [facility] Comment on above: Performed By: #### B MP3M, HEMDF #### [facility] [address] [place] [address] Monocytes/100 WBC (Bld) 9.9 % Normal 2.0-10.0 [facility] Comment on above: Performed By: #### B MP3M, HEMDF #### [facility] [address] [place] [address] Platelet mean volume (Bld) [Entitic vol] 7.8 fL Normal 7.4-10.4 [facility] Comment on above: Performed By: #### B MP3M, HEMDF #### [facility] [address] [place] [address] Platelets (Bld) [#/Vol] 215 10*3/uL Normal 140-440 [facility] Comment on above: Performed By: #### B MP3M, HEMDF #### [facility] [address] [place] [address] RBC (Bld) [#/Vol] 4.15 10*6/uL Low 4.40-5.90 [facility] Comment on above: Performed By: #### B MP3M, HEMDF #### [facility] [address] [place] [address] WBC (Bld) [#/Vol] 8.3 10*3/uL Normal 3.6-10.7 [facility] Comment on above: Performed By: #### B MP3M, HEMDF #### [facility] [address] [place] [address] Basic Metabolic Panelon 12-2 -2020 Anion gap [Moles/Vol] 5 mmol/L Normal 3-13 [facility] Comment on above: Performed By: #### B MP3M, HEMDF ####[facility] [place] [address] Calcium [Mass/Vol] 9.1 mg/dL Normal 8.4-10.4 [facility] Comment on above: Performed By: #### B MP3M, HEMDF ####[facility] [place] [address] CO2 [Moles/Vol] 28 mmol/L Normal 22-30 [facility] Comment on above: Performed By: #### B MP3M, HEMDF ####[place] [address] [place] [address] Glucose [Mass/Vol] 101 mg/dL High 70-100 [facility] Comment on above: Performed By: #### B MP3M, HEMDF ####[place] [address] [place] [address] Urea nitrogen [Mass/Vol] 24 mg/dL High 7-17 [facility] Comment on above: Performed By: #### B MP3M, HEMDF ####[place] [address] [place] [address] Creatinine [Mass/Vol] 0.80 mg/dL Normal 0.52-1.25 [facility] Comment on above: Performed By: #### B MP3M, HEMDF ####[address] [place] [address] eGFR OTHER > 90.0 Normal >60 [facility] Comment on above: Result Comment: KDIG O guidelines provide the following GFR categories: Stage GFR(ml/min/1.73 m2) Terms G1 >=90 Normal or high G2 60-89 Mildly decreased* G3a 45-59 Mildly to moderately decreased G3b 30-44 Moderately to severely decreased G4 15-29 Severely decreased G5 <15 Kidney failure *Relative to young adult level. In the absence of evidence of kidney damage, neither GFR category G1 nor G2 fulfill the criteria for CKD. The CKD-EPI equation is validated in individuals 18 years of age and older. Currently the best equation for estimating glomerular filtration rate (GFR) from serum creatinine in children is the Bedside Hirsch equation. It is less accurate in patients with extremes of muscle mass, restriction of dietary protein, ingestion of creatine, extra-renal metabolism of creatinine, or treatment with medications that affect renal tubular creatinine secretion. Performed By: #### B MP3M, HEMDF ####[place] [address] [place] [address] GFR/1.73 sq M.predicted among blacks MDRD (S/P/Bld) [Vol rate/Area] mL/min/{1.73_m2} Normal >60 [facility] Comment on above: Performed By: #### B MP3M, HEMDF ####[facility] [address] [place] [address] Potassium [Moles/Vol] 4.1 mmol/L Normal 3.5-5.1 [facility] Comment on above: Performed By: #### B MP3M, HEMDF ####[facility] [place] [address] Sodium [Moles/Vol] 125 mmol/L Low 135-145 [facility] Comment on above: Performed By: #### B MP3M, HEMDF ####[facility] [address] [place] [address] Chloride [Moles/Vol] 92 mmol/L Low 98-107 [facility] Comment on above: Performed By: #### B MP3M, HEMDF ####[facility] [place] [address] CT Chest w/o Contraston 08-03 CT Chest w/o Contrast Patient Name: KRYSTINA SAL Computed Tomography ACCESSION EXAM DATE/TIME PROCEDURE ORDERING PROVIDER [id number] 08/24/2021 09:[address] Thorax w/o Contrast NEYMAR GOMEZ HEIDI B. CPT code 40994 Reason For Exam (CT Thorax w/o Contrast) further evaluation of LLL atelectasis. Report EXAMINATION: CT CHEST WITHOUT CONTRAST INDICATIONS: further evaluation of LLL atelectasis. COMPARISON: CT chest 02/11/2020. Chest x-ray 08/23/2021. TECHNIQUE: Helically acquired axial CT images of the chest without intravenous contrast, with sagittal and coronal reformats. FINDINGS: LUNGS AND AIRWAYS: The central tracheobronchial tree is clear. There is mild atelectasis of the lingula and left lower lobe. There is moderate centrilobular and paraseptal emphysema. PLEURA: Small left pleural effusion. Small basilar pneumothorax on the anterior left lower lobe. LOWER NECK: Visualized portion of the thyroid is unremarkable. No supraclavicular lymphadenopathy. MEDIASTINUM AND SEEMA: No mediastinal lymphadenopathy. No hilar lymphadenopathy, within the limitations of noncontrast technique. VESSELS: Mild ectasia of the ascending aorta measuring 3.8 cm. Moderate calcifications of the thoracic aorta. The main pulmonary artery is normal in caliber. HEART AND PERICARDIUM: There is mild cardiomegaly. No pericardial thickening or effusion. Moderate coronary artery calcification. CHEST WALL: Left chest wall cardiac device No axillary or subpectoral lymphadenopathy. VISUALIZED UPPER ABDOMEN: No acute abnormalities detected. BONES: There are acute fractures of the posterior left 10th through 12th ribs. Multiple chronic right-sided posterior fractures. Multiple chronic compression deformities T6 through T8, T12, and L1. IMPRESSION: Small anterior basilar pneumothorax along the left lower lobe. Computed Tomography Report Acute fractures involving the posterior left 10th through 12th ribs. Chronic appearing thoracic and lumbar spine fractures involving T6-T8, T12, and L1. Multiple chronic right-sided rib fractures noted. Small left pleural effusion with adjacent atelectasis of the left lower lobe. Trace atelectasis of the lingula. Report Dictated on Final Dictating Physician: MD DANIELA, MARK CONN Signed Date and Time: 08/24/2021 1:03 pm Signed by: MD DANIELA, MARK CONN Transcribed Date and Time: 08/24/2021 1:04 Normal [facility] Hemogram w/ Autodiffon 08-24 Abs Baso Cnt 0.1 10*3/uL Normal 0.0-0.2 [facility] Comment on above: Performed By: #### B MP3M, HEMDF ####[facility] [place] [address] Abs Neutrophile Cnt 5.9 10*3/uL Normal 1.8-7.0 [facility] Comment on above: Performed By: #### B MP3M, HEMDF ####[facility] [place] [address] Basophils/100 WBC (Bld) 1.3 % Normal 0.0-2.0 [facility] Comment on above: Performed By: #### B MP3M, HEMDF ####[facility] [place] [address] Eosinophils (Bld) [#/Vol] 0.2 10*3/uL Normal 0.0-0.5 [facility] Comment on above: Performed By: #### B MP3M, HEMDF ####[facility] [place] [address] Eosinophils/100 WBC (Bld) 2.6 % Normal 1.0-6.0 [facility] Comment on above: Performed By: #### B MP3M, HEMDF ####[facility] [place] [address] Erythrocyte distribution width (RBC) [Ratio] 13.2 % Normal 11.5-14.5 [facility] Comment on above: Performed By: #### B MP3M, HEMDF ####[address] [place] [address] Granulocytes/100 WBC (Bld) 68.4 % Normal 40.0-80.0 [facility] Comment on above: Performed By: #### B MP3M, HEMDF ####[address] [place] [address] Hematocrit (Bld) [Volume fraction] 39.8 % Low 40.0-52.0 [facility] Comment on above: Performed By: #### B MP3M, HEMDF ####[address] [place] [address] Hemoglobin (Bld) [Mass/Vol] 13.7 g/dL Normal 13.0-18.0 [facility] Comment on above: Performed By: #### B MP3M, HEMDF ####[address] [place] [address] Lymphocytes (Bld) [#/Vol] 1.3 10*3/uL Normal 1.0-4.3 [facility] Comment on above: Performed By: #### B MP3M, HEMDF ####[address] [place] [address] Lymphocytes/100 WBC (Bld) 15.3 % Low 20.0-40.0 [facility] Comment on above: Performed By: #### B MP3M, HEMDF ####[address] [place] [address] MCH (RBC) [Entitic mass] 31.8 pg Normal 26.0-34.0 [facility] Comment on above: Performed By: #### B MP3M, HEMDF ####[address] [place] [address] MCHC 34.3 % Normal 32.0-36.0 [facility] Comment on above: Performed By: #### B MP3M, HEMDF ####[address] [place] [address] MCV (RBC) [Entitic vol] 92.8 fL Normal 80.0-98.0 [facility] Comment on above: Performed By: #### B MP3M, HEMDF ####[address] [place] [address] Monocytes (Bld) [#/Vol] 1.1 10*3/uL High 0.0-0.8 [facility] Comment on above: Performed By: #### B MP3M, HEMDF ####[address] [place] [address] Monocytes/100 WBC (Bld) 12.4 % High 2.0-10.0 [facility] Comment on above: Performed By: #### B MP3M, HEMDF ####[address] [place] [address] Platelet mean volume (Bld) [Entitic vol] 8.2 fL Normal 7.4-10.4 [facility] Comment on above: Performed By: #### B MP3M, HEMDF ####[address] [place] [address] Platelets (Bld) [#/Vol] 224 10*3/uL Normal 140-440 [facility] Comment on above: Performed By: #### B MP3M, HEMDF ####[address] [place] [address] RBC (Bld) [#/Vol] 4.29 10*6/uL Low 4.40-5.90 [facility] Comment on above: Performed By: #### B MP3M, HEMDF ####[facility] [place] [address] WBC (Bld) [#/Vol] 8.6 10*3/uL Normal 3.6-10.7 [facility] Comment on above: Performed By: #### B MP3M, HEMDF ####[facility] [place] [address] NM Myocardial Perf Imaging M ulti Specton 08-24-2021 NM Myocardial Perf Imaging Multi Spect Patient Name: KRYSTINA MARKHAM Nuclear Medicine ACCESSION EXAM DATE/TIME PROCEDURE ORDERING PROVIDER [id number] 08/24/2021 09:00 EST NM Myocardial Perf MD EDUARDA, NITESH Baer Imaging Multi Spect CPT code 66783 [id number] A9500 Reason For Exam (NM Myocardial Perf Imaging Multi Spect) chest pain Report Nuclear Stress Myocardial Perfusion Study Regadenoson Protocol Gated SPECT Patient: Krystina Markham Height: (69 in) Weight: (178 lb) : 1955 Age: 66 Gender: M Study Date: 08/23/2021 Accession#: Patient Room #: *ORDERING PHYSICIAN: * Nitesh Monroy MD *SUPERVISING PHYSICIAN: * Spencer, *RN: * Marcelina Olguin *RADIOLOGIST: * Ravi Alonzo MD *NUCLEAR TECH: * Ashley Tristan *READING PHYSICIAN: * Liam Stroud MD Indications: Chest pain. Summary: 1. Probably normal myocardial perfuison after pharmacologic vasodilation. A basal and mid inferior-lateral reversible perfusion defect is likely due to diaphragmatic attentuation. 2. Baseline ECG: Ventricular paced rhythm. 3. Stress ECG conclusions: No stress induced ECG changes suggestive of ischemia. 4. Gated SPECT: The left ventricular end-diastolic volume is 202 ml. The left ventricular end-systolic volume is 127 ml. The calculated left ventricular ejection fraction post stress is 34%. LV global systolic function is moderately depressed. 5. Low risk/extent of ischemia. 6. Left ventricular systolic function is depressed. Nuclear Medicine Report History: The last beta amira was taken by the patient on 08/23/2021 09:00 PM. Hypertension treated. Tobacco use current. LBBB. Paroxysmal atrial fibrillation. Medications: Metoprolol (Lopressor, Toprol). Albuterol. Apixaban (Eliquis). Lisinopril (Zestril). Spironolactone (Aldactone). Allergies: No known allergies. Chronic obstructive pulmonary disease. Congestive heart failure. Pacemaker. Deep vein thrombosis. Pulmonary embolism. Family history of cardiovascular disease. Patient is NPO per policy. No caffeine per policy. Medication list reviewed with patient and no contraindicated medications have been taken. Hemoglobin, potassium and/or troponin x2 are within policy guidelines. Study data: Heart auscultation by RN revealed a regular rate and rhythm. Pre pain assessment is 0 out of 10. Post pain assessment is 0 out of 10. Patient status: Inpatient. Gated SPECT; rest/stress. One-day Sestamibi. Consent: The procedure was reviewed with the patient and the patient voices understanding. Study completion: The patient tolerated the procedure well. There were no complications. Administered medications: Regadenoson. Discharge: Discharge instruction given. The patient was transferred to the telemetry [facility] [employer] [facility]. The attending physician was notified of these results. Procedure data: Initial setup. The patient was brought to the laboratory. A baseline ECG was recorded. Surface ECG leads and blood pressure measurements were monitored. IV access obtained RFA. IV access per floor RN. IV patent, site benign. Regadenoson stress test. Stress testing was performed, with regadenoson by intravenous bolus at one minute into the protocol, for a total dose of 0.4mgover 10.00 sec, followed by a 5 ml saline flush. Exercise for 4 minutes completed by hand rural route carrier. The infusion was terminated due to end of protocol. A pharmacologic approach was used because the patient was physically unable to exercise. Baseline ECG: Ventricular paced rhythm. Stress protocol: + +--+------ ------+ +---- + +Stage +HR+BP +Symptoms +Comments + + +--+------ ------+ +---- + +Rest +70+110/69 (83) +No symptoms.+ -----+ + +--+------ ------+ +---- + +Peak stress +96+140/80 (100)+ +Pulse ox 94% on RA.+ + +--+------ ------+ +---- + +Recovery +85+126/67 (87) + + ---------+ + +--+------ ------+ +---- + +Late recovery+71+119/58 (78) + + ---------+ + +--+------ ------+ +---- + Stress results: Peak heart rate during stress was 96 bpm. (62% of maximal predicted heart rate). The maximal predicted heart rate was 155 bpm.The heart rate response to stress is normal. There is an appropriate response to stress. The rate- (more content not included)... Normal [employer] of [employer] Add on test from HISon 08-23 Add on test from HIS Accepted Normal [facility] Comment on above: Result Comment: Spec imen available & acceptable for analysis. Performed By: #### A DDON #### [employer] [address] [place] [address] Add on test from HIS Rejected Normal [facility] Comment on above: Order Comment: SERUM OSMO IS YELLOW TOP. NO YELLOW TOP HAS BEEN DRAWN Performed By: #### A DDON #### [facility] [address] [place] [address] Basic Metabolic Panelon 12-2 -2020 Calcium [Mass/Vol] 9.2 mg/dL Normal 8.4-10.4 [facility] Comment on above: Performed By: #### B MP3M, HEMDF, OSM #### [facility] [address] [place] [address] Glucose [Mass/Vol] 96 mg/dL Normal 70-100 [facility] Comment on above: Performed By: #### B MP3M, HEMDF, OSM #### [facility] [address] [place] [address] Urea nitrogen [Mass/Vol] 24 mg/dL High 7-17 [facility] Comment on above: Performed By: #### B MP3M, HEMDF, OSM #### [facility] [address] [place] [address] Anion gap [Moles/Vol] 8 mmol/L Normal 3-13 [facility] Comment on above: Performed By: #### B MP3M, HEMDF, OSM #### [facility] [address] [place] [address] CO2 [Moles/Vol] 23 mmol/L Normal 22-30 [facility] Comment on above: Performed By: #### B MP3M, HEMDF, OSM #### [facility] [address] [place] [address] Creatinine [Mass/Vol] 0.95 mg/dL Normal 0.52-1.25 [facility] Comment on above: Performed By: #### B MP3M, HEMDF, OSM #### [facility] [address] [place] [address] GFR/1.73 sq M.predicted among blacks MDRD (S/P/Bld) [Vol rate/Area] mL/min/{1.73_m2} Normal >60 [facility] Comment on above: Performed By: #### B MP3M, HEMDF, OSM #### [facility] [address] [place] [address] GFR/1.73 sq M.predicted among non-blacks MDRD (S/P/Bld) [Vol rate/Area] 83.5 mL/min/{1.73_m2} Normal >60 [facility] Comment on above: Result Comment: KDIG O guidelines provide the following GFR categories: Stage GFR(ml/min/1.73 m2) Terms G1 >=90 Normal or high G2 60-89 Mildly decreased* G3a 45-59 Mildly to moderately decreased G3b 30-44 Moderately to severely decreased G4 15-29 Severely decreased G5 <15 Kidney failure *Relative to young adult level. In the absence of evidence of kidney damage, neither GFR category G1 nor G2 fulfill the criteria for CKD. The CKD-EPI equation is validated in individuals 18 years of age and older. Currently the best equation for estimating glomerular filtration rate (GFR) from serum creatinine in children is the Bedside Hirsch equation. It is less accurate in patients with extremes of muscle mass, restriction of dietary protein, ingestion of creatine, extra-renal metabolism of creatinine, or treatment with medications that affect renal tubular creatinine secretion. Performed By: #### B MP3M, HEMDF, OSM #### [facility] [address] [place] [address] Chloride [Moles/Vol] 95 mmol/L Low 98-107 [facility] Comment on above: Performed By: #### B MP3M, HEMDF, OSM #### [facility] [address] [place] [address] Potassium [Moles/Vol] 4.3 mmol/L Normal 3.5-5.1 [facility] Comment on above: Performed By: #### B MP3M, HEMDF, OSM #### [facility] [address] [place] [address] Sodium [Moles/Vol] 126 mmol/L Low 135-145 [facility] Comment on above: Performed By: #### B MP3M, HEMDF, OSM #### [facility] [address] [place] [address] Calcium [Mass/Vol] 9.7 mg/dL Normal 8.4-10.4 [facility] Comment on above: Order Comment: Sligh t Hemolysis. Performed By: #### M G3, HEMOG, PHOS3, BMP3, TROPN ####[facility] [place] [address] Glucose [Mass/Vol] 111 mg/dL High 70-100 [facility] Comment on above: Order Comment: Sligh t Hemolysis. Performed By: #### M G3, HEMOG, PHOS3, BMP3, TROPN ####[facility] [place] [address] Urea nitrogen [Mass/Vol] 26 mg/dL High 7-17 [facility] Comment on above: Order Comment: Sligh t Hemolysis. Performed By: #### M G3, HEMOG, PHOS3, BMP3, TROPN ####[facility] [place] [address] Anion gap [Moles/Vol] 12 mmol/L Normal 3-13 [facility] Comment on above: Order Comment: Sligh t Hemolysis. Performed By: #### M G3, HEMOG, PHOS3, BMP3, TROPN ####[facility] [employer] [place] [address] [place] [address] CO2 [Moles/Vol] 20 mmol/L Low 22-30 [facility] Comment on above: Order Comment: Sligh t Hemolysis. Performed By: #### M G3, HEMOG, PHOS3, BMP3, TROPN ####[facility] [place] [address] Creatinine [Mass/Vol] 1.03 mg/dL Normal 0.52-1.25 [facility] Comment on above: Order Comment: Sligh t Hemolysis. Performed By: #### M G3, HEMOG, PHOS3, BMP3, TROPN ####[facility] [employer] [id number] [place] [address] GFR/1.73 sq M.predicted among blacks MDRD (S/P/Bld) [Vol rate/Area] 87.8 mL/min/{1.73_m2} Normal >60 [facility] Comment on above: Order Comment: Sligh t Hemolysis. Performed By: #### M G3, HEMOG, PHOS3, BMP3, TROPN ####[place] [address] [place] [address] GFR/1.73 sq M.predicted among non-blacks MDRD (S/P/Bld) [Vol rate/Area] 75.7 mL/min/{1.73_m2} Normal >60 [facility] Comment on above: Order Comment: Sligh t Hemolysis. Result Comment: KDIG O guidelines provide the following GFR categories: Stage GFR(ml/min/1.73 m2) Terms G1 >=90 Normal or high G2 60-89 Mildly decreased* G3a 45-59 Mildly to moderately decreased G3b 30-44 Moderately to severely decreased G4 15-29 Severely decreased G5 <15 Kidney failure *Relative to young adult level. In the absence of evidence of kidney damage, neither GFR category G1 nor G2 fulfill the criteria for CKD. The CKD-EPI equation is validated in individuals 18 years of age and older. Currently the best equation for estimating glomerular filtration rate (GFR) from serum creatinine in children is the Bedside Hirsch equation. It is less accurate in patients with extremes of muscle mass, restriction of dietary protein, ingestion of creatine, extra-renal metabolism of creatinine, or treatment with medications that affect renal tubular creatinine secretion. Performed By: #### M G3, HEMOG, PHOS3, BMP3, TROPN ####[place] [address] [facility] [place] [address] Potassium [Moles/Vol] 4.8 mmol/L Normal 3.5-5.1 [facility] Comment on above: Order Comment: Sligh t Hemolysis. Performed By: #### M G3, HEMOG, PHOS3, BMP3, TROPN ####[facility] [facility] [place] [address] Chloride [Moles/Vol] 90 mmol/L Low 98-107 [facility] Comment on above: Order Comment: Sligh t Hemolysis. Performed By: #### M G3, HEMOG, PHOS3, BMP3, TROPN ####[place] [address] [facility] [place] [address] Sodium [Moles/Vol] 122 mmol/L Low 135-145 [facility] Comment on above: Order Comment: Sligh t Hemolysis. Performed By: #### M G3, HEMOG, PHOS3, BMP3, TROPN ####[facility] [place] [address] CR Chest Portableon 08-23-20 21 CR Chest Portable Patient Name: KRYSTINA LYNCH Diagnostic Radiology ACCESSION EXAM DATE/TIME PROCEDURE ORDERING PROVIDER [id number] 08/23/2021 02:39 EST CR Chest Portable MD HARSHAL, ALEK [place] CPT code 22525 Reason For Exam (CR Chest Portable) chest pain Report PORTABLE CHEST CLINICAL INDICATION: Chest pain TECHNIQUE: Portable AP COMPARISON: 07/21/[address] from 02/11/2020 FINDINGS: The heart is enlarged. The mediastinum is unremarkable. Left permanent pacemaker is noted. Accentuated reticular opacities noted throughout the lungs. There is ill-defined increased density in the left lung base obscuring the hemidiaphragm, probably atelectasis. No other consolidation is noted on the right. The right costophrenic angle is sharp but the left is obscured. Multiple old right rib fractures are noted and there is osteopenia. Superior subluxation of the left and right humerus relative to the left and right glenoid likely correspond to chronic rotator cuff tears. IMPRESSION: 1. Opacity at the left lung base, probably atelectasis 2. Chronic obstructive pulmonary disease Report Dictated on Final Dictating Physician: MD MORENO JEFFREY Signed Date and Time: 08/23/2021 3:49 am Signed by: MD MORENO JEFFREY Transcribed Date and Time: 08/23/2021 3:50 Normal [facility] ED Provider Noteon ED Provider Note Emergency Department Encounter [facility] ED Patient Identification Pt Name: Krystina Markham Birthdate: 1955 Age: 66 y.o. Sex: male Date of evaluation: 08/23/2021 Provider: Alek Barrios MD PCP: JAMIA SIERRA MD Chief Complaint Chest Pain (left sided, non radiating with facial numbness) History of Present Illness: Patient presents for evaluation of left-sided chest pain. Describes a severe soreness that occurred after work around 1130. Is been constant since then. Severe 8 out of 10 sore sensation. Does not radiate but is associated with left-sided facial numbness and difficulty breathing. Patient however states that he has chronic cough and shortness of breath. He states that cough is not changed from usual. He denies any fevers, abdominal pain, nausea, vomiting, numbness of the extremities, leg pain, leg redness, leg swelling, pleuritic chest pain. Review of Systems: Constitutional: Denies fever Eyes: Denies loss of vision Ears, Nose, Mouth, Throat: Denies difficulty swallowing Cardiovascular: chest pain Respiratory: difficulty breathing Gastroinestinal: Denies bowel incontinence Genitourinary: Denies bladder incontinence Musculoskeletal: Denies extremity swelling Integumentary: Denies rash Neurologic: Denies headache History: I have reviewed the following nursing documentation: Past Medical History: Diagnosis Date ? Alcohol consumption heavy 09/10/2015 ? Asthma ? Atrial fibrillation ([facility]) ? CHF (congestive heart failure) ([facility]) 01/31/2016 ? COPD (chronic obstructive pulmonary disease) ([facility]) 09/10/2015 ? Cor, pulmonale, acute ([facility]) ? Deep venous thrombosis ([facility]) 02/2016 ? Depression ? Hx of blood clots ? Obesity 09/10/2015 ? DELORES (obstructive sleep apnea) ? Pulmonary embolus ([facility]) 6 16 ? Raynaud phenomenon 09/10/2015 ? Smoker 09/10/2015 Past Surgical History: Procedure Laterality Date ? ABDOMEN SURGERY ? BRONCHOSCOPY 02/25/2020 ? BRONCHOSCOPY 02/25/2020 ? COLONOSCOPY 10/27/2019 Dr. Harrell ? FINGER AMPUTATION Left ? HERNIA REPAIR ? NOSE SURGERY Previous Medications ACETAMINOPHEN ([facility] ACETAMINOPHEN EX ST) 500 MG TABLET Take 1 tablet by mouth every 8 hours as needed for Pain ALBUTEROL (PROVENTIL) (2.5 MG/3ML) 0.083% NEBULIZER SOLUTION Take 3 mLs by nebulization every 4 hours as needed for Wheezing or Shortness of Breath ALBUTEROL SULFATE HFA (PROAIR HFA) 108 (90 BASE) MCG/ACT INHALER Inhale 2 puffs into the lungs every 6 hours as needed for Wheezing DICLOFENAC SODIUM (VOLTAREN) 1 % GEL APPLY 4 G TOPICALLY 4 TIMES DAILY NEEDED FOR PAIN (BACK PAIN) ELIQUIS 5 MG TABS TABLET TAKE 1 TABLET BY MOUTH TWICE A DAY APXERMKZHZM-JPZPPKDGU-TV LANT (TRELEGY ELLIPTA) 100-62.5-25 MCG/INH AEPB Inhale 1 puff into the lungs daily LISINOPRIL (PRINIVIL;ZESTRIL) 10 MG TABLET Take 1 tablet by mouth daily MAGNESIUM OXIDE (MAG-OX) 400 MG TABLET Take 1 tablet by mouth daily METOPROLOL SUCCINATE (TOPROL XL) 50 MG EXTENDED RELEASE TABLET TAKE 1 TABLET BY MOUTH TWICE A DAY MONTELUKAST (SINGULAIR) 10 MG TABLET TAKE 1 TABLET BY MOUTH EVERY DAY IN THE EVENING SERTRALINE (ZOLOFT) 100 MG TABLET TAKE 1 TABLET BY MOUTH EVERY DAY SPIRONOLACTONE (ALDACTONE) 25 MG TABLET TAKE 1 TABLET BY MOUTH DAILY TORSEMIDE (DEMADEX) 20 MG TABLET TAKE 1 TABLET BY MOUTH TWICE A DAY Patient has no known allergies. Family History Problem Relation Age of Onset ? Cancer Father ? Asthma Father ? Defects Father ? Cancer Mother ? Pacemaker Mother ? Heart Disease Mother ? Diabetes Mother ? Asthma Sister ? Defects Sister ? Heart Disease Brother Social History Socioeconomic History ? Marital status: Spouse name: None ? Number of children: None ? Years of education: None ? Highest education level: None Occupational History ? None Tobacco Use ? Smoking status: Current Every Day Smoker Packs/day: 0.50 Years: 44.00 Pack years: 22.00 Types: Cigarettes Start date: 1972 ? Smokeless tobacco: Never Used ? Tobacco comment: 10/02/2019 - restarted 2018 1-2 cigs a week Vaping Use ? Vaping Use: Never used Substance and Sexual Activity ? Alcohol use: Yes Alcohol/week: 0.0 standard drinks Comment: daily- one beer, 24 ounces ? Drug use: Never Comment: caffeine use; 2 cups of coffee in morning and 1 can Mountain Dew ? Sexual activity: Not Currently Other Topics Concern ? None Social History Narrative ? None Social Determinants of Health Financial Resource Strain: Low Risk ? Difficulty of Paying Living Expenses: Not very hard Food Insecurity: No Food Insecurity ? Worried About Running Out of Food in the Last Year: Never true ? Ran Out of Food in the Last Year: Never true Transportation Needs: No Transportation Needs ? Lack of Transportation (Medical): No ? Lack of Transportation (Non-Medical): No Physical Activity: ? Days of Exercise per Week: Not on file ? Minutes of Exercise per (more content not included)... Normal [facility] Ethanol Serum/Plasmaon 12-22 -2021 Ethanol-Serum/Plasma < 0.010 Normal 0.000-0.010 [facility] Comment on above: Result Comment: NOTE : This result is for medical treatment only. Analysis performed using non-forensic procedures. Performed By: #### E TOH4, TROPN #### [facility] [address] [place] [address] Hemogramon 08-23-2021 Erythrocyte distribution width (RBC) [Ratio] 13.0 % Normal 11.5-14.5 [facility] Comment on above: Performed By: #### M G3, HEMOG, PHOS3, BMP3, TROPN ####[place] [address] [place] [address] Hematocrit (Bld) [Volume fraction] 44.7 % Normal 40.0-52.0 [facility] Comment on above: Performed By: #### M G3, HEMOG, PHOS3, BMP3, TROPN ####[address] [place] [address] Hemoglobin (Bld) [Mass/Vol] 15.3 g/dL Normal 13.0-18.0 [facility] Comment on above: Performed By: #### M G3, HEMOG, PHOS3, BMP3, TROPN ####[place] [address] [place] [address] MCH (RBC) [Entitic mass] 31.9 pg Normal 26.0-34.0 [facility] Comment on above: Performed By: #### M G3, HEMOG, PHOS3, BMP3, TROPN ####[place] [address] [place] [address] MCHC 34.3 % Normal 32.0-36.0 [facility] Comment on above: Performed By: #### M G3, HEMOG, PHOS3, BMP3, TROPN ####[address] [place] [address] MCV (RBC) [Entitic vol] 92.9 fL Normal 80.0-98.0 [facility] Comment on above: Performed By: #### M G3, HEMOG, PHOS3, BMP3, TROPN ####[address] [place] [address] Platelet mean volume (Bld) [Entitic vol] 8.2 fL Normal 7.4-10.4 [facility] Comment on above: Performed By: #### M G3, HEMOG, PHOS3, BMP3, TROPN ####[place] [address] [place] [address] Platelets (Bld) [#/Vol] 246 10*3/uL Normal 140-440 [facility] Comment on above: Performed By: #### M G3, HEMOG, PHOS3, BMP3, TROPN ####[place] [address] [facility] [place] [address] RBC (Bld) [#/Vol] 4.81 10*6/uL Normal 4.40-5.90 [facility] Comment on above: Performed By: #### M G3, HEMOG, PHOS3, BMP3, TROPN ####[place] [address] [place] [address] WBC (Bld) [#/Vol] 9.2 10*3/uL Normal 3.6-10.7 [facility] Comment on above: Performed By: #### M G3, HEMOG, PHOS3, BMP3, TROPN ####[place] [address] [place] [address] Hemogram w/ Autodiffon 08-23 Abs Baso Cnt 0.0 10*3/uL Normal 0.0-0.2 [facility] Comment on above: Performed By: #### B MP3M, HEMDF, OSM #### [facility] [address] [place] [address] Abs Neutrophile Cnt 8.1 10*3/uL High 1.8-7.0 [facility] Comment on above: Performed By: #### B MP3M, HEMDF, OSM #### [facility] [address] [place] [address] Basophils/100 WBC (Bld) 0.5 % Normal 0.0-2.0 [facility] Comment on above: Performed By: #### B MP3M, HEMDF, OSM #### [place] [address] [place] [address] Eosinophils (Bld) [#/Vol] 0.1 10*3/uL Normal 0.0-0.5 [facility] Comment on above: Performed By: #### B MP3M, HEMDF, OSM #### [facility] [address] [place] [address] Eosinophils/100 WBC (Bld) 1.1 % Normal 1.0-6.0 [facility] Comment on above: Performed By: #### B MP3M, HEMDF, OSM #### [facility] [address] [place] [address] Erythrocyte distribution width (RBC) [Ratio] 13.0 % Normal 11.5-14.5 [facility] Comment on above: Performed By: #### B MP3M, HEMDF, OSM #### [facility] [address] [place] [address] Granulocytes/100 WBC (Bld) 77.0 % Normal 40.0-80.0 [facility] Comment on above: Performed By: #### B MP3M, HEMDF, OSM #### [facility] [address] [place] [address] Hematocrit (Bld) [Volume fraction] 43.9 % Normal 40.0-52.0 [facility] Comment on above: Performed By: #### B MP3M, HEMDF, OSM #### [facility] [address] [place] [address] Hemoglobin (Bld) [Mass/Vol] 15.0 g/dL Normal 13.0-18.0 [facility] Comment on above: Performed By: #### B MP3M, HEMDF, OSM #### [facility] [address] [place] [address] Lymphocytes (Bld) [#/Vol] 1.2 10*3/uL Normal 1.0-4.3 [facility] Comment on above: Performed By: #### B MP3M, HEMDF, OSM #### [facility] [address] [place] [address] Lymphocytes/100 WBC (Bld) 11.3 % Low 20.0-40.0 [facility] Comment on above: Performed By: #### B MP3M, HEMDF, OSM #### [facility] [address] [place] [address] MCH (RBC) [Entitic mass] 32.0 pg Normal 26.0-34.0 [facility] Comment on above: Performed By: #### B MP3M, HEMDF, OSM #### [facility] [address] [place] [address] MCHC 34.1 % Normal 32.0-36.0 [facility] Comment on above: Performed By: #### B MP3M, HEMDF, OSM #### [facility] [address] [place] [address] MCV (RBC) [Entitic vol] 93.8 fL Normal 80.0-98.0 [facility] Comment on above: Performed By: #### B MP3M, HEMDF, OSM #### [facility] [address] [place] [address] Monocytes (Bld) [#/Vol] 1.1 10*3/uL High 0.0-0.8 [facility] Comment on above: Performed By: #### B MP3M, HEMDF, OSM #### [facility] [address] [place] [address] Monocytes/100 WBC (Bld) 10.1 % High 2.0-10.0 [facility] Comment on above: Performed By: #### B MP3M, HEMDF, OSM #### [facility] [address] [place] [address] Platelet mean volume (Bld) [Entitic vol] 7.8 fL Normal 7.4-10.4 [facility] Comment on above: Performed By: #### B MP3M, HEMDF, OSM #### [facility] [address] [place] [address] Platelets (Bld) [#/Vol] 225 10*3/uL Normal 140-440 [facility] Comment on above: Performed By: #### B MP3M, HEMDF, OSM #### [facility] [address] [place] [address] RBC (Bld) [#/Vol] 4.68 10*6/uL Normal 4.40-5.90 [facility] Comment on above: Performed By: #### B MP3M, HEMDF, OSM #### [facility] [address] [place] [address] WBC (Bld) [#/Vol] 10.4 10*3/uL Normal 3.6-10.7 [facility] Comment on above: Performed By: #### B MP3M, HEMDF, OSM #### [facility] [address] [place] [address] Magnesiumon 08-23-2021 Magnesium [Mass/Vol] 1.8 mg/dL Normal 1.6-2.3 [facility] Comment on above: Order Comment: Sligh t Hemolysis. Performed By: #### M G3, HEMOG, PHOS3, BMP3, TROPN ####[facility] [place] [address] Osmolality,Serumon 1 Osmolality,Serum 268 mosm/kg Low 280-300 [facility] Comment on above: Performed By: #### B MP3M, HEMDF, OSM ####[facility] [place] [address] Osmolality,Urineon 1 Osmolality,Urine 338 mosm/kg Normal 300-1000 [facility] Comment on above: Performed By: #### O SMUR, NAURR ####[facility] [facility] [place] [address] Phosphoruson 08-23-2021 Phosphate [Mass/Vol] 5.1 mg/dL High 2.5-4.5 [facility] Comment on above: Order Comment: Sligh t Hemolysis. Performed By: #### M G3, HEMOG, PHOS3, BMP3, TROPN ####[facility] [employer] [id number] [facility] [place] [address] SARS-CoV-2, Flu A/B and RSVo n 08-23-2021 SARS-CoV-2 (COVID-19) RNA GEO+probe Ql (Unsp spec) SARS-CoV-2 --> Status: F Not Detected. Flu A PCR --> Status: F Not Detected. Flu B PCR --> Status: F Not Detected. RSV PCR --> Status: F Not Detected. Expected Result: Not Detected _ Method: Real-time, RT-PCR This assay was developed by [employer] and distributed under an Emergency Use Authorization (EUA) granted by the FDA for the qualitative detection of nucleic acids from SARS-CoV-2, Influenza A, Influenza B, and Respiratory Syncytial Virus. Provider and patient fact sheets can be found at https://www..gov/medi a/759565/download and https://www.fda.gov/medi a/647641/download. Expected Result: Not Detected _ Method: Real-time, RT-PCR This assay was developed by [employer] and distributed under an Emergency Use Authorization (EUA) granted by the FDA for the qualitative detection of nucleic acids from SARS-CoV-2, Influenza A, Influenza B, and Respiratory Syncytial Virus. Provider and patient fact sheets can be found at https://www..gov/medi a/278691/download and https://www..gov/[facility] a/196694/download. Normal [facility] Comment on above: Performed By: #### A DDON #### [facility] [employer] [facility] [address] [place] [address] Sodium, Ur Randomon 08-23-20 21 Sodium [Moles/Vol] 8 mmol/L Low 30-90 [facility] Comment on above: Performed By: #### O SMUR, NAURR ####[employer] [id number] [place] [address] Troponin Ion 08-23-2021 Troponin I.cardiac [Mass/Vol] 0.019 ng/mL Normal 0.000-0.034 [facility] Comment on above: Result Comment: . Performed By: #### E TOH4, TROPN #### [employer] [facility] [address] [place] [address] Troponin I.cardiac [Mass/Vol] 0.024 ng/mL Normal 0.000-0.034 [facility] Comment on above: Order Comment: Sligh t Hemolysis. Result Comment: . Performed By: #### M G3, HEMOG, PHOS3, BMP3, TROPN ####[facility] [place] [address] CR Foot Complete 3+ Views [facility] 08-02-2021 CR Foot Complete 3+ Views Right Patient Name: KRYSTINA MARKHAM Diagnostic Radiology ACCESSION EXAM DATE/TIME PROCEDURE ORDERING PROVIDER [id number] 08/02/2021 08:06 EST CR Foot Complete 3+ BRIDGETTE KNOWLES, Views Right TSAIA Bare CPT code 70810 Reason For Exam (CR Foot Complete 3+ Views Right) hammertoe Report CLINICAL INFORMATION: Hammertoe deformity. AP, oblique, and lateral views of the right foot are provided. The examination is compared to a previous study dated 06/30/2021. FINDINGS: The 2nd digit is edematous. Mild to moderate degenerative changes are noted at the 1st metatarsal phalangeal joint. There is a mild hallux valgus deformity. This is unchanged. The remaining joint spaces are well-maintained. There is no evidence of acute fracture or dislocation. IMPRESSION: 1. The 2nd digit is edematous. 2. Mild to moderate degenerative changes at the 1st MTP. 3. No acute radiographic findings. Report Dictated on Final Dictating Physician: MD RICHARDSON JEFFREY Signed Date and Time: 08/02/2021 1:24 pm Signed by: MD RICHARDSON JEFFREY Transcribed Date and Time: 08/02/2021 1:25 Normal [facility] Op Noteon 07-24-2021 Op Note Patient name: Krystina Markham : 1955 Date of surgery: 07/24/2021 Surgeon: Tasia Crooks DPM Seismograph Observer: none Pre-operative Diagnosis: Right 2nd toe ulcer and hammertoe, right 2nd toe osteomyelitis Post-operative Diagnosis: Same Procedure: 1. Right 2nd to arthroplasty Components used: none Anesthesia:MAC Estimated Blood Loss: less than 10cc Complications: None Specimens: right 2nd proximal phalanx head Operative findings: Bone exposed through ulceration, no purulence or deeper signs of infection, bone of good integrity. History of present illness: This unfortunate 66-year-old male presented to my office last week with ulceration noted of his right second toe. The ulceration probe to tendon or capsule at that time. He also related that he had this wound for over a year. Due to extent of deformity, likely exposed bone, and contracture, surgical correction of the hammertoe was advised. Arthroplasty was recommended and no guarantees were made. Discussed that doing this procedure can rid him of the possible osteomyelitis which thankfully has not caused him to be sick. Discussed that infection in this area could lead to loss of limb or loss of life if any worsening. Patient understands the severity of the issue. All questions were answered. No guarantees were made. Operative report: I met with Krystina in the preoperative area prior to the procedure and discussed the surgical plan once again and answered all of his questions related to the procedure and the expected post-operative course. The risks of surgery were discussed including but not limited to the risks of medications given for surgery, the risk of blood loss during and after surgery that can lead to the need for blood products in certain situations, infection, damage to normal structures that can lead to half-way problems of pain or dysfunction, wound healing complications, and late or chronic pain as a result of the surgical intervention. In addition potentially life threatening complications that can occur at the time of surgery and after surgery were discussed including but not limited to deep vein thrombosis, pulmonary embolism, myocardial infarction, stroke and . I initialed his operative extremity and signed his consent form. Krystina was then brought to the operating room and placed in the supine position on the Operating Room table. Care was taken to identify and pad all bony prominences. A general anesthetic was then given by the anesthesia staff and an endotracheal tube was placed by the anesthesia staff. At all times during the operative procedure the patient's head neck and airway were protected by the anesthesia staff. The right extremity was then prepped and draped in the usual orthopedic sterile fashion. A surgical timeout was then performed with the patient's identification, the procedure to be performed being reviewed with the consent form, verification that the patient had received preoperative antibiotics, and verification of the correct surgical side. Everyone in the operating room stopped what they were doing in order to participate in the timeout. This timeout was performed by myself, the circulating room nurse and the anesthesia staff. The patient's ASA was verified by the nurse skoog machine operator and the anesthesia staff. Fire risk was assessed. Attention was then drawn to the operative site and a transverse elliptical incision was made about the ulceration at the PIPJ. The incision was deepened down to level of bone. It should be of note that the proximal phalanx head was exposed preoperatively. There is no tendon noted where the extensor digitorum longus should be present. This is likely due to chronic ulceration. The skin wedge was removed where the transverse elliptical incision was made. Next all soft tissue structures were freed from the proximal phalanx head. A sagittal saw was then used to resect the proximal phalanx head which will be passed off to the operative table and be sent for pathology. It was noted to be of good integrity. There are no gross signs of infection or deeper tracking. Once an adequate debridement had been performed and I was comfortable that no additional debridement was necessary the wound was thoroughly irrigated with copious amounts of sterile saline. No active bleeding noted. The wound was then inspected before closure. Closure was achieved using 3-0 Prolene in a simple interrupted fashion. The foot was then dressed with betadine, adaptic, gauze, kerlix, and KINSEY. The patient tolerated the procedure and anesthesia and was transferred to PACU with vital signs stable and vascular status intact to all digits of the foot. Following a period of post operative monitoring, the patient will be discharged home. All homegoing instructions were given in both written and oral format. The patient will follow up with me in the offic (more content not included)... Normal [facility] Surgical Pathologyon 021 Surgical Pathology [id number] [facility] PATHOLOGY AND LABORATORY MEDICINE [address] [place] [address] [phone] Fax - FINAL SURGICAL PATHOLOGY REPORT NAME: KRYSTINA MARKHAM N [id number] : 1955 66 Y M BILLING NO.: [id number] LOCATION: [place] [address] PROCEDURE 07/24/2021 DATE: SURGEON: TASIA KNOWLES DPM RECEIVED 07/24/2021 DATE: ATTENDING: TASIA KNOWLES DPM REPORT DATE: 07/26/2021 COPIES TO: DIAGNOSIS: BONE OF RIGHT SECOND TOE, ULCER, BIOPSY: - ACUTE INFLAMMATION EXTENDING INTO THE DEEP SOFT TISSUE AND BONE (ACUTE OSTEOMYELITIS). / Signature> DAWN OROURKE M.D. CLINICAL INFORMATION: Right second toe ulcer SPECIMEN: BONE , RIGHT SECOND TOE BONE GROSS DESCRIPTION: Received in formalin labeled "right second toe bone" is an irregular-shaped segment of white-pink, bony tissue measuring 1.1 x 0.6 x 0.4 cm. It is held for decalcification in immunocal in one cassette. [facility] Disclaimer: The following statement applies to all immunohistochemistry, in situ hybridization, molecular studies, and immunofluorescence testing. The use of one or more reagents in the above tests is regulated as an analyte specific reagent (ASR). These tests were developed and their performance characteristics determined by the clinical laboratories of [facility]. They have not been cleared by the US Food and Drug Administration (FDA). The FDA has determined that such clearance or approval is not necessary. All the above immunostains were performed on paraffin embedded tissue. Appropriate positive and negative controls (where applicable) were run in parallel with the patient's specimen; these controls showed expected staining pattern, with acceptable intensity of staining. Immunohistochemical assays have not been validated on decalcified tissues. Results should be interpreted with caution given the raised possibility of false negativity on decalcified specimens. Case reviewed at [facility] [address] [place] [address]. DEPARTMENT OF PATHOLOGY AND LABORATORY MEDICINE [place], [place] [email or web address] Normal [facility] Basic Metabolic Panelon 11-1 -2020 Anion gap [Moles/Vol] 11 mmol/L Normal 3-13 [facility] Comment on above: Performed By: #### H MARY BMP3 #### [address] Calcium [Mass/Vol] 9.8 mg/dL Normal 8.4-10.4 [facility] Comment on above: Performed By: #### Kayla HERNANDEZ BMP3 #### [address] CO2 [Moles/Vol] 27 mmol/L Normal 22-30 [facility] Comment on above: Performed By: #### Kayla HERNANDEZ BMP3 #### [address] Glucose [Mass/Vol] 75 mg/dL Normal 70-100 [facility] Comment on above: Performed By: #### Kayla HERNANDEZ BMP3 #### [place] [address] [place], [place] Urea nitrogen [Mass/Vol] 21 mg/dL High 7-17 [facility] Comment on above: Performed By: #### Kayla HERNANDEZ BMP3 #### [address] Creatinine [Mass/Vol] 0.93 mg/dL Normal 0.52-1.25 [facility] Comment on above: Performed By: #### Kayla HERNANDEZ BMP3 #### [facility] [address] [place] [address] GFR/1.73 sq M.predicted among blacks MDRD (S/P/Bld) [Vol rate/Area] mL/min/{1.73_m2} Normal >60 [facility] Comment on above: Performed By: #### H MARY BMP3 #### [facility] [address] [place], [place] GFR/1.73 sq M.predicted among non-blacks MDRD (S/P/Bld) [Vol rate/Area] 85.8 mL/min/{1.73_m2} Normal >60 [facility] Comment on above: Result Comment: KDIG O guidelines provide the following GFR categories: Stage GFR(ml/min/1.73 m2) Terms G1 >=90 Normal or high G2 60-89 Mildly decreased* G3a 45-59 Mildly to moderately decreased G3b 30-44 Moderately to severely decreased G4 15-29 Severely decreased G5 <15 Kidney failure *Relative to young adult level. In the absence of evidence of kidney damage, neither GFR category G1 nor G2 fulfill the criteria for CKD. The CKD-EPI equation is validated in individuals 18 years of age and older. Currently the best equation for estimating glomerular filtration rate (GFR) from serum creatinine in children is the Bedside Hirsch equation. It is less accurate in patients with extremes of muscle mass, restriction of dietary protein, ingestion of creatine, extra-renal metabolism of creatinine, or treatment with medications that affect renal tubular creatinine secretion. Performed By: #### H LIZA HERNANDEZ3 #### [place] [address] [address] [place], [place] Potassium [Moles/Vol] 5.3 mmol/L High 3.5-5.1 [facility] Comment on above: Performed By: #### H LIZA HERNANDEZ3 #### [address] Sodium [Moles/Vol] 129 mmol/L Low 135-145 [facility] Comment on above: Performed By: #### H MARY BMP3 #### [place] [address] [address] [place], [place] Chloride [Moles/Vol] 91 mmol/L Low 98-107 [facility] Comment on above: Performed By: #### H LIZA HERNANDEZ3 #### [facility] [address] [place] [address] CR Chest PA/LATon 07-21-2021 CR Chest PA/LAT Patient Name: KRYSTINA LYNCH Diagnostic Radiology ACCESSION EXAM DATE/TIME PROCEDURE ORDERING PROVIDER [id number] 07/21/2021 08:47 EST CR Chest PA and LAT [id number] -RAVINJENNIFERShilpaASHLEY CPT code 85808 Reason For Exam (CR Chest PA and LAT) pre-op Report CHEST: CLINICAL INDICATION: Preoperative evaluation TECHNIQUE: PA and Lateral COMPARISON: 02/11/2020 FINDINGS: No focal consolidation or pulmonary edema. No pleural effusions or pneumothorax. The cardiac silhouette is enlarged. The mediastinum is unremarkable. 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 Degenerative changes of the imaged spine with multiple midthoracic spine compression deformities. There is a healed left proximal clavicular fracture deformity. IMPRESSION: 1. No focal consolidation or edema. 2. Stable compression deformity is of the midthoracic spine. 3. Synostosis of multiple right posterior ribs, unchanged from the prior exam. 4. Proximal healed left clavicular fracture deformity Report Dictated on Final Dictated: 07/21/2021 12:57 pm Dictating Physician: MD ERAZO KEVIN Signed Date and Time: 07/21/2021 1:40 pm Signed by: MD ERAZO KEVIN Transcribed Date and Time: 07/21/2021 1:08 Normal [facility] Hemogramon 07-21-2021 Erythrocyte distribution width (RBC) [Ratio] 12.9 % Normal 11.5-14.5 [facility] Comment on above: Performed By: #### H LIZA HERNANDEZ3 #### [facility] [address] [place] [address] Hematocrit (Bld) [Volume fraction] 49.2 % Normal 40.0-52.0 [facility] Comment on above: Performed By: #### H EMOG, BMP3 #### [facility] [address] [place], [place] Hemoglobin (Bld) [Mass/Vol] 16.6 g/dL Normal 13.0-18.0 [facility] Comment on above: Performed By: #### H EMOG, BMP3 #### [facility] [address], [place] MCH (RBC) [Entitic mass] 32.3 pg Normal 26.0-34.0 [facility] Comment on above: Performed By: #### H EMOG, BMP3 #### [facility] [address], [place] MCHC 33.7 % Normal 32.0-36.0 [facility] Comment on above: Performed By: #### H EMOG, BMP3 #### [facility] [address], [place] MCV (RBC) [Entitic vol] 95.7 fL Normal 80.0-98.0 [facility] Comment on above: Performed By: #### H EMOG, BMP3 #### [facility] [address], [place] Platelet mean volume (Bld) [Entitic vol] 8.5 fL Normal 7.4-10.4 [facility] Comment on above: Performed By: #### H EMOG, BMP3 #### [facility] [address], [place] Platelets (Bld) [#/Vol] 218 10*3/uL Normal 140-440 [facility] Comment on above: Performed By: #### H EMOG, BMP3 #### [facility] [address] [place], [place] RBC (Bld) [#/Vol] 5.14 10*6/uL Normal 4.40-5.90 [facility] Comment on above: Performed By: #### H EMOG, BMP3 #### [facility] [address] [place], [place] WBC (Bld) [#/Vol] 8.2 10*3/uL Normal 3.6-10.7 [facility] Comment on above: Performed By: #### H LIZA HERNANDEZ3 #### [facility] [address] [place] [address] CR Foot Complete 3+ Views [facility] 06-30-2021 CR Foot Complete 3+ Views Right Patient Name: KRYSTINA MARKHAM Diagnostic Radiology ACCESSION EXAM DATE/TIME PROCEDURE ORDERING PROVIDER [id number] 06/30/2021 09:22 EDT CR Foot Complete 3+ TAVO BOWMAN Views Right CPT code 71382 Reason For Exam (CR Foot Complete 3+ Views Right) Infection of toe. L08.9 Report RIGHT FOOT: CLINICAL INDICATION: Second digit infection. TECHNIQUE: AP, Lat, Oblique COMPARISON: 04/13/2021 FINDINGS: No fracture or dislocation. Degenerative changes in the first MTP joint with hallux valgus deformity. Small plantar calcaneal spur. Diffuse osteopenia. There is a soft tissue ulcer along the dorsal aspect of the second digit. No evidence of soft tissue gas, osseous erosive change or periostitis. Note that if there is persistent concern for osteomyelitis, MRI is a more sensitive means of evaluation Report Dictated on Final Dictating Physician: MD GARG NICHOLAS Signed Date and Time: 07/03/2021 2:39 pm Signed by: MD GARG NICHOLAS Transcribed Date and Time: 07/03/2021 2:40 Normal [facility] CR Foot Complete 3+ Views [facility] 04-13-2021 CR Foot Complete 3+ Views Right Patient Name: KRYSTINA MARKHAM Diagnostic Radiology ACCESSION EXAM DATE/TIME PROCEDURE ORDERING PROVIDER [id number] 04/13/2021 10:01 EDT CR Foot Complete 3+ MD COLON KRITIKA Views Right CPT code 14651 Reason For Exam (CR Foot Complete 3+ Views Right) 2nd toe infection Report Indication: Infection second toe. AP, oblique and lateral views of the left foot. Demineralization. Hallux valgus angulation at the first metatarsal phalangeal joint. Demineralization. No acute fracture. No cortical disruption or bony destruction to indicate osteomyelitis. Small plantar calcaneal spur noted. IMPRESSION: No acute bony abnormality. Report Dictated on Final Dictating Physician: MD VAZQUEZ LAURA Signed Date and Time: 04/13/2021 11:12 am Signed by: MD VAZQUEZ LAURA Transcribed Date and Time: 04/13/2021 11:13 Normal [facility] XR FOOT RIGHT (MIN 3 VIEWS)O rdered By: Nikia Colon on 04-13-2021 Patient Name: KRYSTINA LYNCH Diagnostic Radiology ACCESSION EXAM DATE/TIME PROCEDURE ORDERING PROVIDER [id number] 04/13/2021 10:01 EDT CR Foot Complete 3+ MD COLON KRITIKA Views Right CPT code 86658 Reason For Exam (CR Foot Complete 3+ Views Right) 2nd toe infection Report Indication: Infection second toe. AP, oblique and lateral views of the left foot. Demineralization. Hallux valgus angulation at the first metatarsal phalangeal joint. Demineralization. No acute fracture. No cortical disruption or bony destruction to indicate osteomyelitis. Small plantar calcaneal spur noted. IMPRESSION: No acute bony abnormality. Report Dictated on --- Final --- Dictating Physician: MD VAZQUEZ LAURA Signed Date and Time: 04/13/2021 11:12 am Signed by: MD VAZQUEZ LAURA Transcribed Date and Time: 04/13/2021 11:13 [facility] Work Phone: [facility] Incoming Radiology Results From [facility] - 04/13/2021 11:13 AM EDT Patient Name: KRYSTINA MARKHAM Diagnostic Radiology ACCESSION EXAM DATE/TIME PROCEDURE ORDERING PROVIDER [id number] 04/13/2021 10:01 EDT CR Foot Complete 3+ MD COLON KRITIKA Views Right CPT code 89555 Reason For Exam (CR Foot Complete 3+ Views Right) 2nd toe infection Report Indication: Infection second toe. AP, oblique and lateral views of the left foot. Demineralization. Hallux valgus angulation at the first metatarsal phalangeal joint. Demineralization. No acute fracture. No cortical disruption or bony destruction to indicate osteomyelitis. Small plantar calcaneal spur noted. IMPRESSION: No acute bony abnormality. Report Dictated on --- Final --- Dictating Physician: MD VAZQUEZ LAURA Signed Date and Time: 04/13/2021 11:12 am Signed by: MD VAZQUEZ LAURA Transcribed Date and Time: 04/13/2021 11:13 [facility] Work Phone: [facility] Work Phone: CR Spine Lumbosacral 2 or 3 Viewson 11-21-2020 CR Spine Lumbosacral 2 or 3 Views Patient Name: KRYSTINA MARKHAM Diagnostic Radiology ACCESSION EXAM DATE/TIME PROCEDURE ORDERING PROVIDER [id number] 11/21/2020 14:41 EDT CR Spine Lumbosacral 2 [place], DAWN or 3 Views CPT code 27069 Reason For Exam (CR Spine Lumbosacral 2 or 3 Views) b/l lower back pain with history of compression fractures Report LUMBAR SPINE, AP and LATERAL VIEWS: INDICATION: Low back pain COMPARISON: None Frontal, lateral and coned-down lumbosacral spot views of the lumbar spine were obtained. The bone mineral density is normal. There are 5 lumbar type vertebrae. The vertebral body heights are within normal limits. The disc spaces are well preserved. There is mild dextroscoliosis of the lumbar spine with 1 cm of anterolisthesis of L5-S1. IMPRESSION: Scoliosis. No acute process Report Dictated on Final Dictating Physician: DO WREN ALFRED Signed Date and Time: 11/22/2020 10:53 am Signed by: DO WREN ALFRED Transcribed Date and Time: 11/22/2020 10:54 Normal [facility] Echo 2D Doppler Coloron 11- TRANSTHORACIC ECHOCARDIOGRAM PATIENT: Krystina Markham STUDY DATE: 07/20/2020 : 1955 AGE: 65 HT/WT: 175.3 cm (69 93 kg in) (204.6 lb) GENDER: M BP: 140 / 84 LOCATION: [facility] PATIENT Outpatient 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 Reassess EF and apical thrombus CONCLUSIONS SUMMARY: 1. Left ventricle: Systolic function is severely decreased by visual assessment. The estimated ejection fraction is 20%. Severe diffuse hypokinesis with no identifiable regional variations. 2. Right ventricle: The cavity size is mildly dilated. Wall thickness is normal. Systolic function is mildly decreased. Right ventricular systolic pressure is moderately increased. The RV pressure during systole by Doppler is 49 mm Hg. 3. Ventricular septum: Abnormal septal motion due to right ventricular pacing. 4. Biventricular function has significantly decreased since echo done in 2017. STUDY DATA: Complete transthoracic echocardiogram. Procedure: Image quality was suboptimal. Intravenous imaging enhancement (Definity) was administered. Definity lot #: [id number]. M-mode, complete 2D, complete spectral Doppler, and color flow Doppler images were acquired and archived for permanent storage and are available for subsequent review. Study status: Routine. Patient status: Outpatient. ECG RHYTHM: Paced rhythm FINDINGS LEFT VENTRICLE: The cavity size is mildly dilated. Wall thickness is mildly increased. Increased ventricular mass. Systolic function is severely decreased by visual assessment. The estimated ejection fraction is 20%. Severe diffuse hypokinesis with no identifiable regional variations. Unable to assess LV diastolic function due to paced rhythm RIGHT VENTRICLE: The cavity size is mildly dilated. Wall thickness is normal. Pacer wire noted in the right ventricle. Systolic function is mildly decreased. Right ventricular systolic pressure is moderately increased. VENTRICULAR SEPTUM: Abnormal septal motion due to right ventricular pacing. There is no evidence of a ventricular septal defect. LEFT ATRIUM: The atrium is mildly dilated. RIGHT ATRIUM: The atrium is moderately dilated. Pacer wire noted in right atrium. ATRIAL SEPTUM: Color Doppler shows no shunt. MITRAL VALVE: Mildly thickened leaflets. Doppler: There is no evidence for stenosis. There is trivial, less than 1+ regurgitation. AORTIC VALVE: Not well visualized. Trileaflet; mildly thickened, mildly calcified leaflets. Doppler: There is no stenosis There is no regurgitation. The peak systolic gradient is 12 mm Hg. The peak systolic velocity is 1.8 m/sec. TRICUSPID VALVE: Structurally normal valve. Normal thickness leaflets. Doppler: There is mild-moderate, 1-2+ regurgitation. PULMONIC VALVE: Structurally normal valve. Doppler: There is trivial, less than 1+ regurgitation. AORTA: The aorta is well visualized and trivially dilated. PULMONARY ARTERY: Main pulmonary artery: Normal. PERICARDIUM: There is no pericardial effusion. SYSTEMIC VEINS: Inferior vena cava: The vessel is normal and dilated. The IVC collapses by greater than 50% with inspiration. Measurements Value 01/09/2017 Reference Ascending aorta ID, A-P, S 3.6 cm Ascending aorta ID/bsa, 1.7 cm/m^2 A-P, S Left ventricle Value 01/09/2017 Reference LV ID, ED 4.9 cm 5.4 4.2 - 5.8 LV ID, ES (H) 4.4 cm 3.2 2.5 - 4.0 LV ID/bsa, ED 2.3 cm/m^2 2.2 - 3.0 LV ID/bsa, ES 2.0 cm/m^2 1.3 - 2.1 LV PW thickness, ED (H) 1.3 cm 1.5 0.6 - 1.0 LV PW/LV ID ratio, ED 0.26 LV wall mass (H) 257 g 96 - 200 LV wall mass/bsa (H) 119 g/m^2 50 - 102 Stroke volume/bsa, 1-p A2C 24.1 ml/m^2 LV end-diastolic volume, (H) 231 ml 125 69 - 185 1-p A4C LV end-systolic volume, 1-p (H) 141 ml 44 22 - 78 A4C LV end-diastolic volume, (H) 238 ml 114 62 - 150 2-p LV end-systolic volume, 2-p (H) 171 ml 55 21 - 61 LV ejection fraction, 2-p (L) 28 % 45 52 - 72 Ventricular septum Value 01/09/2017 Reference IVS thickness, ED (H) 1.3 cm 1.6 0.6 - 1.0 LVOT Value 01/09/2017 Reference LVOT mean velocity, S 0.7 m/sec LVOT peak gradient, S 4 mm Hg Aortic valve Value 01/09/2017 Reference Aortic valve peak velocity, 1.8 m/sec S Aortic peak gradient, S 12 mm Hg Left atrium Value 01/09/2017 Reference LA volume/bsa, ES, 2-p (H) 37 ml/m^2 22 16 - 34 Tricuspid valve Value 01/09/2017 Reference Tricuspid peak RV-RA 41 mm Hg gradient Right atrium Value 01/09/2017 Reference RA area, ES, A4C (H) 37 cm^2 16 10 - 18 Systemic veins Value 01/09/2017 Reference Estimated RAP 8 mm Hg Right ventricle Value 01/09/2017 Reference RV pressure, S, DP 49 mm Hg RV s', lateral 10.4 cm/sec 18.1 6.0 - 13.4 Pulmonic valve Value 01/09/2017 Reference Pulmonic peak gradient, S 6 mm Hg Legend: (L) and (H) nissa values outside specified reference range. Electronically signed by Pepe Malagon MD 07/20/2020 11:42 Prior Signatures: [facility] Results From [facility] - 07/20/2020 11:42 AM EST TRANSTHORACIC ECHOCARDIOGRAM PATIENT: Krystina Markham STUDY DATE: 07/20/2020 : 1955 AGE: 65 HT/WT: 175.3 cm (69 93 kg in) (204.6 lb) GENDER: M BP: 140 / 84 LOCATION: [facility] PATIENT Outpatient 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 Reassess EF and apical thrombus CONCLUSIONS SUMMARY: 1. Left ventricle: Systolic function is severely decreased by visual assessment. The estimated ejection fraction is 20%. Severe diffuse hypokinesis with no identifiable regional variations. 2. Right ventricle: The cavity size is mildly dilated. Wall thickness is normal. Systolic function is mildly decreased. Right ventricular systolic pressure is moderately increased. The RV pressure during systole by Doppler is 49 mm Hg. 3. Ventricular septum: Abnormal septal motion due to right ventricular pacing. 4. Biventricular function has significantly decreased since echo done in 2017. STUDY DATA: Complete transthoracic echocardiogram. Procedure: Image quality was suboptimal. Intravenous imaging enhancement (Definity) was administered. Definity lot #: [id number]. M-mode, complete 2D, complete spectral Doppler, and color flow Doppler images were acquired and archived for permanent storage and are available for subsequent review. Study status: Routine. Patient status: Outpatient. ECG RHYTHM: Paced rhythm FINDINGS LEFT VENTRICLE: The cavity size is mildly dilated. Wall thickness is mildly increased. Increased ventricular mass. Systolic function is severely decreased by visual assessment. The estimated ejection fraction is 20%. Severe diffuse hypokinesis with no identifiable regional variations. Unable to assess LV diastolic function due to paced rhythm RIGHT VENTRICLE: The cavity size is mildly dilated. Wall thickness is normal. Pacer wire noted in the right ventricle. Systolic function is mildly decreased. Right ventricular systolic pressure is moderately increased. VENTRICULAR SEPTUM: Abnormal septal motion due to right ventricular pacing. There is no evidence of a ventricular septal defect. LEFT ATRIUM: The atrium is mildly dilated. RIGHT ATRIUM: The atrium is moderately dilated. Pacer wire noted in right atrium. ATRIAL SEPTUM: Color Doppler shows no shunt. MITRAL VALVE: Mildly thickened leaflets. Doppler: There is no evidence for stenosis. There is trivial, less than 1+ regurgitation. AORTIC VALVE: Not well visualized. Trileaflet; mildly thickened, mildly calcified leaflets. Doppler: There is no stenosis There is no regurgitation. The peak systolic gradient is 12 mm Hg. The peak systolic velocity is 1.8 m/sec. TRICUSPID VALVE: Structurally normal valve. Normal thickness leaflets. Doppler: There is mild-moderate, 1-2+ regurgitation. PULMONIC VALVE: Structurally normal valve. Doppler: There is trivial, less than 1+ regurgitation. AORTA: The aorta is well visualized and trivially dilated. PULMONARY ARTERY: Main pulmonary artery: Normal. PERICARDIUM: There is no pericardial effusion. SYSTEMIC VEINS: Inferior vena cava: The vessel is normal and dilated. The IVC collapses by greater than 50% with inspiration. Measurements Value 01/09/2017 Reference Ascending aorta ID, A-P, S 3.6 cm Ascending aorta ID/bsa, 1.7 cm/m^2 A-P, S Left ventricle Value 01/09/2017 Reference LV ID, ED 4.9 cm 5.4 4.2 - 5.8 LV ID, ES (H) 4.4 cm 3.2 2.5 - 4.0 LV ID/bsa, ED 2.3 cm/m^2 2.2 - 3.0 LV ID/bsa, ES 2.0 cm/m^2 1.3 - 2.1 LV PW thickness, ED (H) 1.3 cm 1.5 0.6 - 1.0 LV PW/LV ID ratio, ED 0.26 LV wall mass (H) 257 g 96 - 200 LV wall mass/bsa (H) 119 g/m^2 50 - 102 Stroke volume/bsa, 1-p A2C 24.1 ml/m^2 LV end-diastolic volume, (H) 231 ml 125 69 - 185 1-p A4C LV end-systolic volume, 1-p (H) 141 ml 44 22 - 78 A4C LV end-diastolic volume, (H) 238 ml 114 62 - 150 2-p LV end-systolic volume, 2-p (H) 171 ml 55 21 - 61 LV ejection fraction, 2-p (L) 28 % 45 52 - 72 Ventricular septum Value 01/09/2017 Reference IVS thickness, ED (H) 1.3 cm 1.6 0.6 - 1.0 LVOT Value 01/09/2017 Reference LVOT mean velocity, S 0.7 m/sec LVOT peak gradient, S 4 mm Hg Aortic valve Value 01/09/2017 Reference Aortic valve peak velocity, 1.8 m/sec S Aortic peak gradient, S 12 mm Hg Left atrium Value 01/09/2017 Reference LA volume/bsa, ES, 2-p (H) 37 ml/m^2 22 16 - 34 Tricuspid valve Value 01/09/2017 Reference Tricuspid peak RV-RA 41 mm Hg gradient Right atrium Value 01/09/2017 Reference RA area, ES, A4C (H) 37 cm^2 16 10 - 18 Systemic veins Value 01/09/2017 Reference Estimated RAP 8 mm Hg Right ventricle Value 01/09/2017 Reference RV pressure, S, DP 49 mm Hg RV s', lateral 10.4 cm/sec 18.1 6.0 - 13.4 Pulmonic valve Value 01/09/2017 Reference Pulmonic peak gradient, S 6 mm Hg Legend: (L) and (H) nissa values outside specified reference range. Electronically signed by Pepe Malagon MD 07/20/2020 11:42 Prior Signatures: [facility], [place] XR CHEST (2 VW)on 07-02-2020 Patient Name: KRYSTINA LYNCH ---Diagnostic Radiology--- Exam Date/Time 07/02/2020 09:52:08 EDT Exam CR Chest PA/LAT Ordering Physician TROY SHANNON LORI P. Accession Number [id number] CPT4 Codes 46812 () Reason For Exam over penetrated for new device implant Report CLINICAL INFORMATION: Arrhythmia. Pacer placement. AP and lateral views of the chest are provided and compared with a previous study dated 06/22/2020. FINDINGS: A new bipolar pacer/ICD device is in place via the left subclavian vein. The heart is mildly enlarged. The lungs are free of infiltrate or pleural effusion. Mild atelectasis is noted in the left lung base. There is no pneumothorax. IMPRESSION: 1. New left chest wall pacer/ICD. 2. No pneumothorax. 3. Mild cardiomegaly. Report Dictated on --- Final --- Dictated: 07/02/2020 10:24 am Dictating Physician: MD RICHARDSON JEFFREY Signed Date and Time: 07/02/2020 10:25 am Signed by: MD RICHARDSON JEFFREY Transcribed Date and Time: 07/02/2020 10:24 [facility], [place], [facility] Incoming Radiology Results From [facility] - 07/02/2020 10:26 AM EDT Patient Name: KRYSTINA MARKHAM ---Diagnostic Radiology--- Exam Date/Time 07/02/2020 09:52:08 EDT Exam CR Chest PA/LAT Ordering Physician TROY SHANNON LORI P. Accession Number [id number] CPT4 Codes 66401 () Reason For Exam over penetrated for new device implant Report CLINICAL INFORMATION: Arrhythmia. Pacer placement. AP and lateral views of the chest are provided and compared with a previous study dated 06/22/2020. FINDINGS: A new bipolar pacer/ICD device is in place via the left subclavian vein. The heart is mildly enlarged. The lungs are free of infiltrate or pleural effusion. Mild atelectasis is noted in the left lung base. There is no pneumothorax. IMPRESSION: 1. New left chest wall pacer/ICD. 2. No pneumothorax. 3. Mild cardiomegaly. Report Dictated on --- Final --- Dictated: 07/02/2020 10:24 am Dictating Physician: MD RICHARDSON JEFFREY Signed Date and Time: 07/02/2020 10:25 am Signed by: MD RICHARDSON JEFFREY Transcribed Date and Time: 07/02/2020 10:24 [facility], [place] ELECTROPHYSIOLOGYon 07-01-20 Ric Foote M D - 07/01/2020 11:19 AM EDT [facility] PATIENT: KRYSTINA MARKHAM MEDICAL RECORD#: [id number] LOCATION: [address] [place] [address] DATE OF SERVICE: 07/01/2020 DATE OF : 1955 AGE: 65 REFERRING PHYSICIAN: DICTATING PHYSICIAN: Ric Foote MD CASE #: ?? ELECTROPHYSIOLOGY STUDY PROCEDURE: BIVENTRICULAR ICD IMPLANTATION. HISTORY OF PRESENT ILLNESS: The patient is a 65-year-old gentleman with history of severe LV dysfunction, ejection fraction 20% in the setting of hypertension and potential alcohol, prior cardiomyopathy. He has significant lung disease. He has a very wide left bundle branch block with class 3 congestive heart failure, biventricular ICD is recommended. DESCRIPTION OF PROCEDURE: After informed consent was obtained, the patient was brought to the electrophysiology laboratory in the fasting non-sedated state. Left chest was prepped and draped in the usual sterile fashion. Using 2% Xylocaine and 0.5% bupivacaine, the subcutaneous tissues in the left infraclavicular space were anesthetized. After adequate anesthesia, a 15 blade was used to make a 5 cm incision just medial to the left deltopectoral groove. Blunt dissection and electrocautery were taken down to the level of the prepectoralis fascia. Using a combination of blunt dissection and electrocautery, a left-sided prepectoral pocket was fashioned. All bleeders were cauterized. Using the modified Seldinger technique and 2% Xylocaine for anesthesia, the left subclavian vein was cannulated on three separate occasions using a first rib approach and three standard J guidewires were advanced down into the inferior vena cava. Over the most medial guidewire, a 7-[place]er peel-away SafeSheath was then inserted. The guidewire was removed. The defibrillator lead was passed under fluoroscopic guidance into the right heart. The sheath was peeled away and removed. A curved stylet was inserted and the lead was prolapsed across the valve and the tip was placed in the septal right ventricular apex. The lead was actively fixated into place. Ten volt stimulation failed to capture the diaphragm. Pacing and sensing parameters were as below. The leads were sutured in place to the pectoralis muscle using 2-0 silk suture in the provided suture sleeve. Over the second wire in the subclavian vein, a 9-[place] peel-away SafeSheath was then inserted. The guidewire was removed. The CS lead delivery system was then advanced which consisted of an inner 0.035 J-wire, 90-degree inner St. Cam sheath and outer multipurpose sheath. The coronary sinus was engaged and balloon occlusive venogram was then performed demonstrating 2 excellent posterolateral branch, suitable for left ventricular pacing. Over the superior branch, the guidewire was advanced, but the lead could not be advanced out this branch given a Alegre's [place] take off. The mid posterolateral branch was then used and sub-selective with renal catheter. Over the guidewire, the lead was then advanced out to the posterolateral LV. Pacing and sensing parameters were as below. Attention was then turned to the placement of the atrial lead. Over the last sheath in the subclavian vein, a 7-[place] peel-away SafeSheath was then inserted. The guidewire was removed. The atrial lead was passed under fluoroscopic guidance into the right heart. A preformed J stylet was then inserted and the lead tip was placed in the region of the high right atrium. The screw was extended. Excellent injury current was noted. Ten volt stimulation failed to capture the diaphragm. Pacing and sensing parameters were as below. The lead was suture in place pectoralis muscle using 2-0 silk suture in the provided suture sleeve. CS lead delivery system was then slit and removed. All the tips remained stable. A 9-[place] peel-away SafeSheath was then removed and all lead tips remained stable. Pressure achieved hemostasis. The CS lead and atrial lead were then sewn in place to the pectoralis muscle using 2-0 silk suture in the provided suture sleeve. Lead tips were cleaned, dried, and retested and continued to demonstrate excellent pacing and sensing parameters. The device was fastened to leads and the system was placed inside the pocket. The pocket was vigorously irrigated with gentamicin solution, and the wound was then closed in several layers with the lowest layer being interrupted 2-0 Vicryl followed by running 3-0 and 4-0 Dexon. Steri-strips were placed across the incision and dry sterile dressing was placed atop the ICD implantation site. The patient tolerated the procedure very well and left the EP lab in stable condition. There were no apparent complications. The defibrillation threshold testing was not performed secondary to left ventricular apical thrombus. DEVICE DATA: The implanted device is St. Cam [id number], serial [id number]. The right atrial lead is St. Cam 2880, serial [id number]. P-waves were 4.5 mV, pacing threshold of 1 V at 0.5 msec, impedance of 600 ohms. The right ventricular defibrillator lead is St. Cam 7122, serial [id number]. R-waves 11.7 mV, pacing threshold 0.5 V at 0.5 msec, impedance of 580 ohms. The left ventricular lead is St. Cam 1457, serial [id number] in the 3-4 configuration threshold, 3 V at 1 msec impendence 1225 ohms. Stable impedance pacing from 1-2 1500 ohms. SUMMARY: Status post implantation of biventricular ICD in the setting of severe LV dysfunction, left bundle branch block. [employer] Job ID: [id number] Ric Foote MD DOD: 07/01/2020 10:46 A NADIR/shar DOT: 07/01/2020 11:19 A Job Number: [id number] Document Number: [id number] cc: [place], [place] XR CHEST (2 VW)on 06-22-2020 Patient Name: KRYSTINA LYNCH ---Diagnostic Radiology--- Exam Date/Time 06/22/2020 11:00:00 EDT Exam CR Chest PA/LAT Ordering Physician MD DARY, RIC PARISI Accession Number [id number] CPT4 Codes 11709 () Reason For Exam Encounter for other preprocedural examination Report CHEST, PA & LATERAL: INDICATION: Preop COMPARISON: No previous studies are available for comparison. PA and lateral views of the chest were obtained. The heart is normal in size. The mediastinal silhouette is normal. Chronic interstitial changes are present. Posttraumatic deformity of the posterior right ribs are noted, stable. There is biapical pleural thickening. Arthritic changes of the spine and shoulders are present. IMPRESSION: Chronic changes. No acute process. Report Dictated on Workstation: [id number] --- Final --- Dictating Physician: DO WREN ALFRED Signed Date and Time: 06/22/2020 11:57 am Signed by: DO WREN ALFRED Transcribed Date and Time: 06/22/2020 11:58 [place], [place], [place] Incoming Radiology Results From [facility] - 06/22/2020 11:58 AM EDT Patient Name: KRYSTINA MARKHAM ---Diagnostic Radiology--- Exam Date/Time 06/22/2020 11:00:00 EDT Exam CR Chest PA/LAT Ordering Physician MD DARY, RIC PARISI Accession Number [id number] CPT4 Codes 72015 () Reason For Exam Encounter for other preprocedural examination Report CHEST, PA & LATERAL: INDICATION: Preop COMPARISON: No previous studies are available for comparison. PA and lateral views of the chest were obtained. The heart is normal in size. The mediastinal silhouette is normal. Chronic interstitial changes are present. Posttraumatic deformity of the posterior right ribs are noted, stable. There is biapical pleural thickening. Arthritic changes of the spine and shoulders are present. IMPRESSION: Chronic changes. No acute process. Report Dictated on Workstation: [id number] --- Final --- Dictating Physician: DO WREN ALFRED Signed Date and Time: 06/22/2020 11:57 am Signed by: DO WREN ALFRED Transcribed Date and Time: 06/22/2020 11:58 [place], [place] Diagnostic Cardiac Hand Dry Cleaner Procedureon 05-25-2020 Ronnie Almaraz MD 05/25/2020 10:44 AM Direct Current Cardioversion Indication: aflutter Consent: "Material" risks, benefits and alternatives of direct current cardioversion were discussed. All questions addressed. Written consent was obtained. Technique: The patient was brought to the custodial laborer prep and recovery room in a fasting state. After an appropriate "time-out", a Mallampati of 3 and ASA of 3 was assessed. Deep sedation was administered per FOOD MOBILE DRIVER (Please see separate report for medication and dosing). BP, pulse oximetry, and HR were monitored throughout. Direct current cardioversion was performed in an AP orientation with 100 Joules synchronized to the main vector of the QRS resulting in conversion to NSR at 64 bpm with PAC's Impression: Successful direct current cardioversion Complications: none Ronnie Almaraz MD [facility] 05/25/20 10:43 AM [facility] [place], [place] Echo 2D Doppler Coloron 07- TRANSTHORACIC ECHOCARDIOGRAM PATIENT: Krystina Markham STUDY DATE: 03/29/2020 : 1955 AGE: 64 HT/WT: 172.7 cm (68 86.2 kg in) (189.6 lb) GENDER: M BP: 128 / 76 LOCATION: [facility] PATIENT Outpatient [facility] STATUS: *ORDERING PHYSICIAN: * Farnaz Davis *RN: * Leila Galeano *READING PHYSICIAN: Tim Fisher *RADIOCOMMUNICATIONS TECHNICIAN: Maurisio Conner RDCS, MD AE INDICATIONS: LV Function. CONCLUSIONS SUMMARY: 1. Left ventricle: Systolic function is severely decreased by visual assessment. The estimated ejection fraction is 20%. Akinesis of the entireanteroseptal and inferoseptal myocardium. Hypokinesis of the entire myocardium. Dyskinesis of the apical myocardium. Consider apical layered thrombus. 2. Left atrium: The atrium is severely dilated. 3. Right atrium: The atrium is severely dilated. 4. Mitral valve: There is moderate, 2+ regurgitation. The peak diastolic gradient is 3 mm Hg. 5. Tricuspid valve: There is moderate, 2+ regurgitation. STUDY DATA: Complete transthoracic echocardiogram. Procedure: Image quality was poor. The study was technically limited due to poor acoustic window availability and body habitus. Intravenous imaging enhancement (Definity) was administered to opacify the chamber. Definity lot #: [id number]. M-mode, complete 2D, complete spectral Doppler, and color flow Doppler images were acquired and archived for permanent storage and are available for subsequent review. Study status: Routine. Patient status: Outpatient. ECG RHYTHM: Tachycardia FINDINGS LEFT VENTRICLE: The cavity size is mildly dilated. Wall thickness is moderately increased. Systolic function is severely decreased by visual assessment. The estimated ejection fraction is 20%. Unable to assess LV diastolic function due to wall motion abnormalities Regional wall motion abnormalities: Akinesis of the entireanteroseptal and inferoseptal myocardium. Hypokinesis of the entire myocardium. Dyskinesis of the apical myocardium. Consider apical layered thrombus. RIGHT VENTRICLE: The cavity size is moderately dilated. Systolic function is severely decreased. Right ventricular systolic pressure is moderately increased. VENTRICULAR SEPTUM: There is no evidence of a ventricular septal defect. LEFT ATRIUM: The atrium is severely dilated. RIGHT ATRIUM: The atrium is severely dilated. ATRIAL SEPTUM: Color Doppler shows no shunt. MITRAL VALVE: Mildly thickened leaflets. Doppler: There is moderate, 2+ regurgitation. The peak diastolic gradient is 3 mm Hg. AORTIC VALVE: Trileaflet. Thickening, consistent with sclerosis. Doppler: There is no stenosis. There is no regurgitation. The peak systolic gradient is 4 mm Hg. The peak systolic velocity is 0.9 m/sec. TRICUSPID VALVE: Structurally normal valve. Doppler: There is moderate, 2+ regurgitation. PULMONIC VALVE: Structurally normal valve. Doppler: There is trivial, less than 1+ regurgitation. AORTA: Ascending aorta: The ascending aorta is trivially dilated. PULMONARY ARTERY: The main pulmonary artery is mildly dilated. Main pulmonary artery: Normal. PERICARDIUM: There is no pericardial effusion. SYSTEMIC VEINS: Inferior vena cava: The IVC is dilated and plethoric, without inspiratory collapse. Measurements Value 01/09/2017 Reference Aortic root ID 3.5 cm <4.2 Aortic root ID, STJ, ED 2.5 cm 2.3 - 3.5 Aortic root ID/bsa, STJ, ED 1.2 cm/m^2 1.1 - 1.9 Value 01/09/2017 Reference Ascending aorta ID, A-P, S 3.6 cm --------- Ascending aorta ID/bsa, A-P, 1.7 cm/m^2 --------- S Left ventricle Value 01/09/2017 Reference LV ID, ED (H) 6.4 cm 5.4 4.2 - 5.8 LV ID, ES (H) 5.5 cm 3.2 2.5 - 4.0 LV ID/bsa, ED (H) 3.1 cm/m^2 2.2 - 3.0 LV ID/bsa, ES (H) 2.7 cm/m^2 1.3 - 2.1 LV PW thickness, ED (H) 1.2 cm 1.5 0.6 - 1.0 LV PW/LV ID ratio, ED 0.19 --------- LV wall mass (H) 341 g 96 - 200 LV wall mass/bsa (H) 166 g/m^2 50 - 102 LV ejection fraction, 2-p (L) 20 % 45 52 - 72 Ventricular septum Value 01/09/2017 Reference IVS thickness, ED (H) 1.1 cm 1.6 0.6 - 1.0 LVOT Value 01/09/2017 Reference LVOT ID, A-P 2.1 cm 2.0 --------- LVOT mean velocity, S 0.3 m/sec --------- LVOT peak gradient, S 1 mm Hg --------- Stroke volume (SV), LVOT DP 27 ml --------- Stroke index (SV/bsa), LVOT 13 ml/m^2 --------- DP Aortic valve Value 01/09/2017 Reference Aortic valve peak velocity, 0.9 m/sec --------- S Aortic peak gradient, S 4 mm Hg --------- Left atrium Value 01/09/2017 Reference LA volume/bsa, ES, 2-p (H) 58 ml/m^2 22 16 - 34 Mitral valve Value 01/09/2017 Reference Mitral E-wave peak velocity 0.8 m/sec 0.9 --------- Mitral A-wave peak velocity 0 m/sec 0.7 --------- Mitral deceleration time 137 ms 179 --------- Mitral peak gradient, D 3 mm Hg 3 --------- Mitral E/A ratio, peak 213.6 1.2 --------- Tricuspid valve Value 01/09/2017 Reference Tricuspid regurg peak 2.6 m/sec <=2.8 velocity Tricuspid peak RV-RA 27 mm Hg --------- gradient Right atrium Value 01/09/2017 Reference RA area, ES, A4C (H) 36 cm^2 16 10 - 18 Systemic veins Value 01/09/2017 Reference Estimated RAP 15 mm Hg --------- Right ventricle Value 01/09/2017 Reference RV ID, minor axis, ED, A4C (H) 5.2 cm 2.5 - 4.1 base RV ID, minor axis, ED, A4C (H) 3.9 cm 1.9 - 3.5 mid TAPSE, 2D (L) 1.1 cm 3.3 1.7 - 3.1 RV pressure, S, DP 42 mm Hg --------- Pulmonic valve Value 01/09/2017 Reference Pulmonic regurg gradient, ED 4 mm Hg --------- Legend: (L) and (H) nissa values outside specified reference range. Electronically signed by Phillip Forde MD 03/29/2020 14:03 Prior Signatures: [place], [place], [facility] Incoming Cardiology Results From [facility] - 03/29/2020 2:03 PM EDT TRANSTHORACIC ECHOCARDIOGRAM PATIENT: Krystina Markham STUDY DATE: 03/29/2020 : 1955 AGE: 64 HT/WT: 172.7 cm (68 86.2 kg in) (189.6 lb) GENDER: M BP: 128 / 76 LOCATION: [facility] PATIENT Outpatient [facility] STATUS: *ORDERING PHYSICIAN: * Farnaz Davis *RN: * Leila Galeano *READING PHYSICIAN: * Phillip *RADIOCOMMUNICATIONS TECHNICIAN: * Maurisio Dove RDCS, MD AE INDICATIONS: LV Function. CONCLUSIONS SUMMARY: 1. Left ventricle: Systolic function is severely decreased by visual assessment. The estimated ejection fraction is 20%. Akinesis of the entireanteroseptal and inferoseptal myocardium. Hypokinesis of the entire myocardium. Dyskinesis of the apical myocardium. Consider apical layered thrombus. 2. Left atrium: The atrium is severely dilated. 3. Right atrium: The atrium is severely dilated. 4. Mitral valve: There is moderate, 2+ regurgitation. The peak diastolic gradient is 3 mm Hg. 5. Tricuspid valve: There is moderate, 2+ regurgitation. STUDY DATA: Complete transthoracic echocardiogram. Procedure: Image quality was poor. The study was technically limited due to poor acoustic window availability and body habitus. Intravenous imaging enhancement (Definity) was administered to opacify the chamber. Definity lot #: [id number]. M-mode, complete 2D, complete spectral Doppler, and color flow Doppler images were acquired and archived for permanent storage and are available for subsequent review. Study status: Routine. Patient status: Outpatient. ECG RHYTHM: Tachycardia FINDINGS LEFT VENTRICLE: The cavity size is mildly dilated. Wall thickness is moderately increased. Systolic function is severely decreased by visual assessment. The estimated ejection fraction is 20%. Unable to assess LV diastolic function due to wall motion abnormalities Regional wall motion abnormalities: Akinesis of the entireanteroseptal and inferoseptal myocardium. Hypokinesis of the entire myocardium. Dyskinesis of the apical myocardium. Consider apical layered thrombus. RIGHT VENTRICLE: The cavity size is moderately dilated. Systolic function is severely decreased. Right ventricular systolic pressure is moderately increased. VENTRICULAR SEPTUM: There is no evidence of a ventricular septal defect. LEFT ATRIUM: The atrium is severely dilated. RIGHT ATRIUM: The atrium is severely dilated. ATRIAL SEPTUM: Color Doppler shows no shunt. MITRAL VALVE: Mildly thickened leaflets. Doppler: There is moderate, 2+ regurgitation. The peak diastolic gradient is 3 mm Hg. AORTIC VALVE: Trileaflet. Thickening, consistent with sclerosis. Doppler: There is no stenosis. There is no regurgitation. The peak systolic gradient is 4 mm Hg. The peak systolic velocity is 0.9 m/sec. TRICUSPID VALVE: Structurally normal valve. Doppler: There is moderate, 2+ regurgitation. PULMONIC VALVE: Structurally normal valve. Doppler: There is trivial, less than 1+ regurgitation. AORTA: Ascending aorta: The ascending aorta is trivially dilated. PULMONARY ARTERY: The main pulmonary artery is mildly dilated. Main pulmonary artery: Normal. PERICARDIUM: There is no pericardial effusion. SYSTEMIC VEINS: Inferior vena cava: The IVC is dilated and plethoric, without inspiratory collapse. Measurements Value 01/09/2017 Reference Aortic root ID 3.5 cm <4.2 Aortic root ID, STJ, ED 2.5 cm 2.3 - 3.5 Aortic root ID/bsa, STJ, ED 1.2 cm/m^2 1.1 - 1.9 Value 01/09/2017 Reference Ascending aorta ID, A-P, S 3.6 cm --------- Ascending aorta ID/bsa, A-P, 1.7 cm/m^2 --------- S Left ventricle Value 01/09/2017 Reference LV ID, ED (H) 6.4 cm 5.4 4.2 - 5.8 LV ID, ES (H) 5.5 cm 3.2 2.5 - 4.0 LV ID/bsa, ED (H) 3.1 cm/m^2 2.2 - 3.0 LV ID/bsa, ES (H) 2.7 cm/m^2 1.3 - 2.1 LV PW thickness, ED (H) 1.2 cm 1.5 0.6 - 1.0 LV PW/LV ID ratio, ED 0.19 --------- LV wall mass (H) 341 g 96 - 200 LV wall mass/bsa (H) 166 g/m^2 50 - 102 LV ejection fraction, 2-p (L) 20 % 45 52 - 72 Ventricular septum Value 01/09/2017 Reference IVS thickness, ED (H) 1.1 cm 1.6 0.6 - 1.0 LVOT Value 01/09/2017 Reference LVOT ID, A-P 2.1 cm 2.0 --------- LVOT mean velocity, S 0.3 m/sec --------- LVOT peak gradient, S 1 mm Hg --------- Stroke volume (SV), LVOT DP 27 ml --------- Stroke index (SV/bsa), LVOT 13 ml/m^2 --------- DP Aortic valve Value 01/09/2017 Reference Aortic valve peak velocity, 0.9 m/sec --------- S Aortic peak gradient, S 4 mm Hg --------- Left atrium Value 01/09/2017 Reference LA volume/bsa, ES, 2-p (H) 58 ml/m^2 22 16 - 34 Mitral valve Value 01/09/2017 Reference Mitral E-wave peak velocity 0.8 m/sec 0.9 --------- Mitral A-wave peak velocity 0 m/sec 0.7 --------- Mitral deceleration time 137 ms 179 --------- Mitral peak gradient, D 3 mm Hg 3 --------- Mitral E/A ratio, peak 213.6 1.2 --------- Tricuspid valve Value 01/09/2017 Reference Tricuspid regurg peak 2.6 m/sec <=2.8 velocity Tricuspid peak RV-RA 27 mm Hg --------- gradient Right atrium Value 01/09/2017 Reference RA area, ES, A4C (H) 36 cm^2 16 10 - 18 Systemic veins Value 01/09/2017 Reference Estimated RAP 15 mm Hg --------- Right ventricle Value 01/09/2017 Reference RV ID, minor axis, ED, A4C (H) 5.2 cm 2.5 - 4.1 base RV ID, minor axis, ED, A4C (H) 3.9 cm 1.9 - 3.5 mid TAPSE, 2D (L) 1.1 cm 3.3 1.7 - 3.1 RV pressure, S, DP 42 mm Hg --------- Pulmonic valve Value 01/09/2017 Reference Pulmonic regurg gradient, ED 4 mm Hg --------- Legend: (L) and (H) nissa values outside specified reference range. Electronically signed by Phillip Forde MD 03/29/2020 14:03 Prior Signatures: [facility] [place], [place] CT LUNG SCREENING DIAGNOSTIC 3-6 MONTH FOLLOW UPon 02-11-2020 Patient Name: KRYSTINA LYNCH ---CT--- Exam Date/Time 02/11/2020 08:52:[address] Low Dose Thorax w/o Cont Ordering Physician MD GERARD, [facility] Accession Number [id number] CPT4 Codes 70975 (CT Low Dose Thorax w/o Cont) Reason For Exam Solitary pulmonary nodule Report CLINICAL HISTORY: Pulmonary nodule follow-up COMPARISON: 09/19/2019 Technique: 1 mm low dose helical CT images were obtained of the chest without the use of intravenous contrast. Images were reformatted in coronal and sagittal projections. FINDINGS: Pulmonary nodules: *All nodule measurements are mean axial diameter and saved on singh images* Vague spiculated density described on the prior 09/19/2019 examination within the inferior central right upper lobe is no longer visualized. No new suspicious pulmonary nodules or masses are identified. Lungs: No new areas of consolidation or effusion identified. There are moderate upper lobe predominant centrilobular emphysematous changes. 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 This has worsened compared to the prior examination. The remainder of the tracheobronchial tree remains patent. Mediastinum: Heart size is enlarged with no pericardial effusion. Aorta and pulmonary arteries normal in caliber. No enlarged mediastinal, hilar, or axillary lymph nodes. Thyroid and Esophagus: Normal. Upper Abdomen: Normal Soft tissues and Osseous structures: No suspicious osseous lesions. Compression deformities of the midthoracic spine are unchanged. There are unchanged healed right-sided rib fractures. IMPRESSION: Previously identified subcentimeter spiculated nodule within the right upper lobe from 09/19/2019 is resolved on today's examination. No new suspicious pulmonary nodules or masses. 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 This has increased compared to the prior examination. Moderate upper lobe predominant centrilobular emphysematous changes. Cardiomegaly ASSESSMENT CATEGORY: Lung-RADS Assessment Category 1 - Negative. Recommend continued annual low-dose screening CT in 12 months. Lung-RADS Version 1.1 Assessment Categories - for Screening CT Chest Only. Release date: January 22, 2019 Category 1 - Negative - Continue annual screening with low-dose CT No nodules Nodules with benign characteristics (complete, central, popcorn Ca++) or fat Category 2 - Benign appearance or behavior - Continue annual screening with low-dose CT Perifissural nodule(s) < 10 mm (see note 11 below) Solid nodule(s): < 6 mm or new < 4 mm Part solid nodule(s): < 6 mm total diameter on baseline screening Nonsolid nodule(s) (GGN): < 30 mm OR >/= 30 mm and unchanged or slowly growing Category 3 or 4 nodules unchanged for >/= 3 months Category 3 - Probably benign finding(s) - 6 month follow up with low-dose CT Solid nodule(s): 6 to < 8 mm at baseline OR new 4 mm to < 6 mm Part solid nodule(s) >/= 6 mm total diameter with solid component < 6 mm OR new < 6 mm total diameter Nonsolid nodule(s) (GGN) >/= [address] or new Category 4A - Suspicious - 3 month low-dose CT follow up or PET/CT when >/= 8 mm solid component Solid nodule(s): 8 to < 15 mm at baseline OR growing < 8 mm OR new 6 to <8 mm Part solid nodule(s): >/= 6 mm with solid component >/= 6 mm to < 8 mm OR with a new or growing < 4 mm solid component Any endobronchial nodule Category 4B - Very Suspicious - chest CT with or without contrast, PET/CT and/or tissue sampling depending on the *probability of malignancy and comorbidities. PET/CT may be used when there is a >/= 8 mm solid component. For new large nodules that develop on an annual repeat screening CT, a [address] may be recommended to address potentially inflammatory or infections conditions. Solid nodule(s): >/= 15 mm OR new or growing, and >/= 8 mm Part solid nodule(s) with: a solid component >/= 8 mm OR a new or growing >/= 4 mm solid component Category 4X - Very Suspicious - (same work up as Category 4B) Category 3 or 4 nodules with additional features or imaging findings that increases the suspicion of malignancy - spiculation, rapid growth or associated lymph node enlargement Modifier to add to Category 0-4: Category S - Clinically or potentially significant non lung cancer related findings IMPORTANT NOTES FOR USE: 1. Negative screen: does not mean that an individual does not have lung cancer. 2. Size: to calculate nodule mean diameter, measure both the long and short axis to one decimal point and report mean nodule diameter to one decimal point. 3. Size Thresholds: apply to nodules at first detection, and that grow and reach a higher size category 4. Growth: an increase in size of > 1.5 mm 5. Exam category: each exam should be coded 0-4 based on the nodule(s) with the highest degree of suspicion 6. Exam Modifiers: S modifier may be added to the 0-4 category 7. Lung cancer diagnosis: Once a patient is diagnosed with lung cancer, further management (including additional imaging such as PET/CT) may be performed for purposes of lung cancer staging; this is no longer screening 8. Practice audit definitions: a negative screen is defined as categories 1 and 2; a positive screen is defined as categories 3 and 4 9. Category 4B Management: this is predicated on the probability of malignancy based on patient evaluation, patient preference and risk of malignancy; radiologists are encouraged to use the Valentina et al assessment tool when making recommendations 10. Category 4X: nodules with additional imaging findings that increase the suspicion of lung cancer, such as spiculation, GGN that doubles in size in 1 year, enlarged lymph nodes etc 11. Solid nodules with smooth margins, an oval, lentiform or triangular shape, and maximum diameter of 10 mm (perifissural nodules) should be classified as category 2 12. Category 3 and 4A nodules that are unchanged on interval CT should be coded as category 2, and individuals returned to screening in 12 months Report Dictated on --- Final --- Dictating Physician: MD LOWE YUN ROBERT Signed Date and Time: 02/11/2020 9:24 am Signed by: MD LOWE YUN ROBERT Transcribed Date and Time: 02/11/2020 9:25 [place], [place], [facility] Incoming Radiology Results From [facility] - 02/11/2020 9:25 AM EDT Patient Name: KRYSTINA MARKHAM ---CT--- Exam Date/Time 02/11/2020 08:52:[address] Low Dose Thorax w/o Cont Ordering Physician MD GERARD, [facility] Accession Number [id number] CPT4 Codes 28142 (CT Low Dose Thorax w/o Cont) Reason For Exam Solitary pulmonary nodule Report CLINICAL HISTORY: Pulmonary nodule follow-up COMPARISON: 09/19/2019 Technique: 1 mm low dose helical CT images were obtained of the chest without the use of intravenous contrast. Images were reformatted in coronal and sagittal projections. FINDINGS: Pulmonary nodules: *All nodule measurements are mean axial diameter and saved on singh images* Vague spiculated density described on the prior 09/19/2019 examination within the inferior central right upper lobe is no longer visualized. No new suspicious pulmonary nodules or masses are identified. Lungs: No new areas of consolidation or effusion identified. There are moderate upper lobe predominant centrilobular emphysematous changes. 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 This has worsened compared to the prior examination. The remainder of the tracheobronchial tree remains patent. Mediastinum: Heart size is enlarged with no pericardial effusion. Aorta and pulmonary arteries normal in caliber. No enlarged mediastinal, hilar, or axillary lymph nodes. Thyroid and Esophagus: Normal. Upper Abdomen: Normal Soft tissues and Osseous structures: No suspicious osseous lesions. Compression deformities of the midthoracic spine are unchanged. There are unchanged healed right-sided rib fractures. IMPRESSION: Previously identified subcentimeter spiculated nodule within the right upper lobe from 09/19/2019 is resolved on today's examination. No new suspicious pulmonary nodules or masses. 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 This has increased compared to the prior examination. Moderate upper lobe predominant centrilobular emphysematous changes. Cardiomegaly ASSESSMENT CATEGORY: Lung-RADS Assessment Category 1 - Negative. Recommend continued annual low-dose screening CT in 12 months. Lung-RADS Version 1.1 Assessment Categories - for Screening CT Chest Only. Release date: January 22, 2019 Category 1 - Negative - Continue annual screening with low-dose CT No nodules Nodules with benign characteristics (complete, central, popcorn Ca++) or fat Category 2 - Benign appearance or behavior - Continue annual screening with low-dose CT Perifissural nodule(s) < 10 mm (see note 11 below) Solid nodule(s): < 6 mm or new < 4 mm Part solid nodule(s): < 6 mm total diameter on baseline screening Nonsolid nodule(s) (GGN): < 30 mm OR >/= 30 mm and unchanged or slowly growing Category 3 or 4 nodules unchanged for >/= 3 months Category 3 - Probably benign finding(s) - 6 month follow up with low-dose CT Solid nodule(s): 6 to < 8 mm at baseline OR new 4 mm to < 6 mm Part solid nodule(s) >/= 6 mm total diameter with solid component < 6 mm OR new < 6 mm total diameter Nonsolid nodule(s) (GGN) >/= [address] or new Category 4A - Suspicious - 3 month low-dose CT follow up or PET/CT when >/= 8 mm solid component Solid nodule(s): 8 to < 15 mm at baseline OR growing < 8 mm OR new 6 to <8 mm Part solid nodule(s): >/= 6 mm with solid component >/= 6 mm to < 8 mm OR with a new or growing < 4 mm solid component Any endobronchial nodule Category 4B - Very Suspicious - chest CT with or without contrast, PET/CT and/or tissue sampling depending on the *probability of malignancy and comorbidities. PET/CT may be used when there is a >/= 8 mm solid component. For new large nodules that develop on an annual repeat screening CT, a [address] may be recommended to address potentially inflammatory or infections conditions. Solid nodule(s): >/= 15 mm OR new or growing, and >/= 8 mm Part solid nodule(s) with: a solid component >/= 8 mm OR a new or growing >/= 4 mm solid component Category 4X - Very Suspicious - (same work up as Category 4B) Category 3 or 4 nodules with additional features or imaging findings that increases the suspicion of malignancy - spiculation, rapid growth or associated lymph node enlargement Modifier to add to Category 0-4: Category S - Clinically or potentially significant non lung cancer related findings IMPORTANT NOTES FOR USE: 1. Negative screen: does not mean that an individual does not have lung cancer. 2. Size: to calculate nodule mean diameter, measure both the long and short axis to one decimal point and report mean nodule diameter to one decimal point. 3. Size Thresholds: apply to nodules at first detection, and that grow and reach a higher size category 4. Growth: an increase in size of > 1.5 mm 5. Exam category: each exam should be coded 0-4 based on the nodule(s) with the highest degree of suspicion 6. Exam Modifiers: S modifier may be added to the 0-4 category 7. Lung cancer diagnosis: Once a patient is diagnosed with lung cancer, further management (including additional imaging such as PET/CT) may be performed for purposes of lung cancer staging; this is no longer screening 8. Practice audit definitions: a negative screen is defined as categories 1 and 2; a positive screen is defined as categories 3 and 4 9. Category 4B Management: this is predicated on the probability of malignancy based on patient evaluation, patient preference and risk of malignancy; radiologists are encouraged to use the Valentina et al assessment tool when making recommendations 10. Category 4X: nodules with additional imaging findings that increase the suspicion of lung cancer, such as spiculation, GGN that doubles in size in 1 year, enlarged lymph nodes etc 11. Solid nodules with smooth margins, an oval, lentiform or triangular shape, and maximum diameter of 10 mm (perifissural nodules) should be classified as category 2 12. Category 3 and 4A nodules that are unchanged on interval CT should be coded as category 2, and individuals returned to screening in 12 months Report Dictated on --- Final --- Dictating Physician: MD LOWE YUN ROBERT Signed Date and Time: 02/11/2020 9:24 am Signed by: MD LOWE YUN ROBERT Transcribed Date and Time: 02/11/2020 9:25 [place], [place] Complete PFT Study Pre and P ost Bronchodilatoron 02-11-2020 Name: KRYSTINA MARKHAM PatientID: [id number] Gender: Male Birthdate: 1955 Study Date: 02/11/2020 9:35:52 A Age: 64 Race: White or Height: 66.0 in, 167.6 cm Weight: 196.0 lbs, 89.1 kg Smoke Status: Smokes Pack Years: 4 Tbco Prod: Cigarettes Ordering Physician: [id number] Interpreting Physician: [id number] Nuclear Powerplant Mechanic: RACHAEL Testing Location: [facility] Diagnosis: COUGH Spirometry Units Pred PreDrug Pre%Pred Post Post%Pred %Change FVC L,btps 4.02 3.52 88. 3.76 94. 7. FEV1 L,btps 3.01 1.67 55. 1.78 59. 6. FEV1/FVC (%) % 75. 47. 63. 47. 63. 0. GIJ35-23% L/s 2.46 0.49 20. 0.53 21. 7. FEFmax L/s 8.12 2.76 34. 4.10 50. 48. MVV in,btps 110.55 51.57 47. Lung Volumes (Body Box) Units Pred PreDrug Pre%Pred TLC L,btps 6.37 VC L,btps 4.02 IC L,btps 2.97 FRC L,btps 3.40 ERV L,btps 1.05 RV L,btps 2.35 RV/TLC (%) % 37. VTG L,btps RAW H2O/L/s 1.34 SGaw cmH2O/L 0.22 Diffusion (DLCO) Units Pred PreDrug Pre%Pred DLCO ml/min/mmHg,stpd 27.82 15.07 54. DLCOHb ml/min/mmHg,stpd 27.82 15.07 54. VAsb L,btps 6.23 4.89 79. D/VAsb ml/min/mmHg/L,stpd 4.47 3.08 69. D/VAsbHb ml/min/mmHg/L,stpd 4.47 3.08 69. VInsp L 3.66 Hgb g/dl 14.60 COHb % Nitrogen Washout Units Pred PreDrug Pre%Pred TLC L,btps 6.37 6.41 101. VC L,btps 4.02 4.02 100. FRC L,btps 3.40 3.44 101. IC L,btps 2.97 2.97 100. ERV L,btps 1.05 1.05 100. RV L,btps 2.35 2.39 102. RV/TLC (%) % 37. 37. 101. 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 Consistent results. Best results reported.Calibration check passed with acceptable system performance. The patient performed all pre-test requirements. Pt has sob with constant/stenuous exertion. Pt has a moist pc daily. Pt was given an Albuterol MDI x4 puffs via a spacer that was instructed and dispensed. 81371- PRE/[place] [address]- DLCO 75267- FRC GAS Tests to perform: 8879404 - FULL PFT STUDY WITH BRONCHODILATOR PHYSICIAN INTERPRETATION Moderate small airway obstuction indicted by reduced FEV1, FEV1/FVC, mid range flows, and or FVC/SVC. The FEV1, FVC, and FEV1/FVC did not change with administration of a bronchodilator. The patient's obstruction does not appear to be Asthma related. The diffusion capacity of the patient is moderately decreased due to early stages of emphysema, even when the values are adjusted for alveolar volume. Entering the hemoglobin values confirmed, rather than altering this result. Lung volumes were demonstrated to be normal by the Nitrogen Washout test. 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 3.76 94. 7. FEV1 L,btps 3.01 1.67 55. 1.78 59. 6. FEV1/FVC (%) % 75. 47. 63. 47. 63. 0. MDS49-13% L/s 2.46 0.49 20. 0.53 21. 7. FEFmax L/s 8.12 2.76 34. 4.10 50. 48. MVV in,btps 110.55 51.57 47. Lung Volumes (Body Box) Units Pred PreDrug Pre%Pred TLC L,btps 6.37 VC L,btps 4.02 IC L,btps 2.97 FRC L,btps 3.40 ERV L,btps 1.05 RV L,btps 2.35 RV/TLC (%) % 37. VTG L,btps RAW H2O/L/s 1.34 SGaw cmH2O/L 0.22 Diffusion (DLCO) Units Pred PreDrug Pre%Pred DLCO ml/min/mmHg,stpd 27.82 15.07 54. DLCOHb ml/min/mmHg,stpd 27.82 15.07 54. VAsb L,btps 6.23 4.89 79. D/VAsb ml/min/mmHg/L,stpd 4.47 3.08 69. D/VAsbHb ml/min/mmHg/L,stpd 4.47 3.08 69. VInsp L 3.66 Hgb g/dl 14.60 COHb % Nitrogen Washout Units Pred PreDrug Pre%Pred TLC L,btps 6.37 6.41 101. VC L,btps 4.02 4.02 100. FRC L,btps 3.40 3.44 101. IC L,btps 2.97 2.97 100. ERV L,btps 1.05 1.05 100. RV L,btps 2.35 2.39 102. RV/TLC (%) % 37. 37. 101. 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 Consistent results. Best results reported.Calibration check passed with acceptable system performance. The patient performed all pre-test requirements. Pt has sob with constant/stenuous exertion. Pt has a moist pc daily. Pt was given an Albuterol MDI x4 puffs via a spacer that was instructed and dispensed. 1940[address]- PRE/[place] [address]- DLCO 21928- FRC GAS Tests to perform: [id number] - FULL PFT STUDY WITH BRONCHODILATOR PHYSICIAN INTERPRETATION Moderate small airway obstuction indicted by reduced FEV1, FEV1/FVC, mid range flows, and or FVC/SVC. The FEV1, FVC, and FEV1/FVC did not change with administration of a bronchodilator. The patient's obstruction does not appear to be Asthma related. The diffusion capacity of the patient is moderately decreased due to early stages of emphysema, even when the values are adjusted for alveolar volume. Entering the hemoglobin values confirmed, rather than altering this result. Lung volumes were demonstrated to be normal by the Nitrogen Washout test. [facility], [place] DEXA BONE DENSITY PERIPHERAL on 11-09-2019 Patient Name: KRYSTINA LYNCH ---Bone Density--- Exam Date/Time 11/09/2019 08:56:04 EDT Exam OT Bone Density DEXA Isabelle Skeleton Ordering Physician PEDRO LIRIANO JENNIFER L. Accession Number [id number] CPT4 Codes 62935 () Reason For Exam osteoporosis, compression fracture thoracic Report DXA BONE DENSITOMETRY: CLINICAL INDICATION: Screening for osteoporosis. COMPARISON: None TECHNIQUE: Quantitative bone mineral densitometry of the hip and wrist was performed with a dual energy x-ray observed absorptiometry device - Funinhand. Regions of interest were obtained through the proximal femur and compared to the normal value of young adult men. Regions of interest were also obtained through the wrist with an average value determined and compared to the normal value of young adult men. The difference between your measured bone density and the bone density of a normal young man is expressed in standard deviations as the T score. Similarly, your measured bone density is also compared to age and race matched values, and expressed in standard deviations as the Z score. According to World Health Organization criteria: T-score of -1.0 or higher is normal. T-score between -1.1 to < -2.5 is low bone density or "osteopenia." T-score of -2.5 or lower is abnormally low, compatible with "osteoporosis." T-score of -2.5 or less plus fragility fracture indicates "severe osteoporosis." FINDINGS: Femoral neck LEFT Density: 0.920 g/cm2 T-score: -1.2. This falls within the osteopenic range. Z-score: -0.6 Total Hip LEFT Density: 0.878 g/cm2 T-score: Was 1.5. This falls within the osteopenic range. Z-score: -1.4 Comparison from prior examination: N/A Wrist: Radius 33% Density 0.764 g/cm2 T-score: -0.5. This falls within the normal range. Z-score: 0.0 Comparison from prior examination: N/A IMPRESSION: 1. Osteopenia (particularly in the hip). FRACTURE RISK: The estimated 10 year risk for a hip fracture is 0.9% and for a major osteoporosis-related fracture is 8.7%. (FRAX web version 3.11). RECOMMENDATIONS: General recommendations for prevention of bone loss include: 6733-1367 mg calcium intake per day for adults >50yrs, and no history of renal calculi 800-1000 IU of vitamin D3 per day for adults >50yrs, and no history of renal calculi Weight bearing exercise Discontinue smoking Avoid excessive use of caffeine, soft drinks, and alcoholic beverages In addition, balance training and fall prevention programs can help reduce the risk of fractures Pharmacologic treatment recommendations: Initiate pharmacologic treatment in patients with hip or vertebral fracture. In those with T scores lumbar spine by DXA In postmenopausal women and men age 50 or older with low bone mass (T score between -1.0 and -2.5 [osteopenia]) at the femoral neck, total hip, or lumbar spine by DXA have a 10 year hip fracture probability >/= 3% or a 10 year major osteoporosis-related fracture probability >/= 20% based on the [place]-adapted WHO fracture risk model (FRAX). Current FDA-approved pharmacologic options for osteoporosis treatment include bisphosphonates (Fosamax), ibandronate (Boniva), risedronate (Actonel), zoledronic acid (Reclast), estrogens and other hormonal therapies (Evista), parathyroid hormone (Forteo), and denosumab (Prolia). Initiation of pharmacologic therapy should happen only after thorough medical evaluation, discussion of risks and benefits, and with regular monitoring of the therapeutic regimen. Follow-up recommendations: Patients with osteoporosis or or at high risk for fracture should have follow-up bone density tests. For Medicare patients, routine testing is allowed every 2 years. Patients who have low bone mass (T score -2.0 to -2.49), who are currently on treatment for low bone mass, or having risk factors for accelerated bone loss (glucocorticoids, aromatase inhibitors, etc.), consider repeat DXA in 1-2 years. Patients with osteopenia and no risk factors may consider follow-up every 3-5 years. References: National Osteoporosis Foundation. Clinician's Guide to Prevention and Treatment of Osteoporosis. Osteoporosis International. Rhoades, 2014. DXA Scan Screening, Reporting (FRAX Score) and Follow-up. Janine of Knowledge Evidence - based Summaries. [employer] [facility] for Education and Research 2017. Report Dictated on Workstation: [employer]pex --- Final --- Dictated: 11/09/2019 11:55 am Dictating Physician: MD RICHARDSON JEFFREY Signed Date and Time: 11/09/2019 11:57 am Signed by: MD RICHARDSON JEFFREY Transcribed Date and Time: 11/09/2019 11:55 [facility], [place] P[place], [place] Incoming Radiology Results From [facility] - 11/09/2019 11:58 AM EDT Patient Name: KRYSTINA MARKHAM ---Bone Density--- Exam Date/Time 11/09/2019 08:56:04 EDT Exam OT Bone Density DEXA Isabelle Skeleton Ordering Physician PEDRO LIRIANO JENNIFER L. Accession Number [id number] CPT4 Codes 77480 () Reason For Exam osteoporosis, compression fracture thoracic Report DXA BONE DENSITOMETRY: CLINICAL INDICATION: Screening for osteoporosis. COMPARISON: None TECHNIQUE: Quantitative bone mineral densitometry of the hip and wrist was performed with a dual energy x-ray observed absorptiometry device - Funinhand. Regions of interest were obtained through the proximal femur and compared to the normal value of young adult men. Regions of interest were also obtained through the wrist with an average value determined and compared to the normal value of young adult men. The difference between your measured bone density and the bone density of a normal young man is expressed in standard deviations as the T score. Similarly, your measured bone density is also compared to age and race matched values, and expressed in standard deviations as the Z score. According to World Health Organization criteria: T-score of -1.0 or higher is normal. T-score between -1.1 to < -2.5 is low bone density or "osteopenia." T-score of -2.5 or lower is abnormally low, compatible with osteoporosis. T-score of -2.5 or less plus fragility fracture indicates "severe osteoporosis." FINDINGS: Femoral neck LEFT Density: 0.920 g/cm2 T-score: -1.2. This falls within the osteopenic range. Z-score: -0.6 Total Hip LEFT Density: 0.878 g/cm2 T-score: Was 1.5. This falls within the osteopenic range. Z-score: -1.4 Comparison from prior examination: N/A Wrist: Radius 33% Density 0.764 g/cm2 T-score: -0.5. This falls within the normal range. Z-score: 0.0 Comparison from prior examination: N/A IMPRESSION: 1. Osteopenia (particularly in the hip). FRACTURE RISK: The estimated 10 year risk for a hip fracture is 0.9% and for a major osteoporosis-related fracture is 8.7%. (FRAX web version 3.11). RECOMMENDATIONS: General recommendations for prevention of bone loss include: 2831-7780 mg calcium intake per day for adults >50yrs, and no history of renal calculi 800-1000 IU of vitamin D3 per day for adults >50yrs, and no history of renal calculi Weight bearing exercise Discontinue smoking Avoid excessive use of caffeine, soft drinks, and alcoholic beverages In addition, balance training and fall prevention programs can help reduce the risk of fractures Pharmacologic treatment recommendations: Initiate pharmacologic treatment in patients with hip or vertebral fracture. In those with T scores lumbar spine by DXA In postmenopausal women and men age 50 or older with low bone mass (T score between -1.0 and -2.5 [osteopenia]) at the femoral neck, total hip, or lumbar spine by DXA have a 10 year hip fracture probability >/= 3% or a 10 year major osteoporosis-related fracture probability >/= 20% based on the [place]-adapted WHO fracture risk model (FRAX). Current FDA-approved pharmacologic options for osteoporosis treatment include bisphosphonates (Fosamax), ibandronate (Boniva), risedronate (Actonel), zoledronic acid (Reclast), estrogens and other hormonal therapies (Evista), parathyroid hormone (Forteo), and denosumab (Prolia). Initiation of pharmacologic therapy should happen only after thorough medical evaluation, discussion of risks and benefits, and with regular monitoring of the therapeutic regimen. Follow-up recommendations: Patients with osteoporosis or or at high risk for fracture should have follow-up bone density tests. For Medicare patients, routine testing is allowed every 2 years. Patients who have low bone mass (T score -2.0 to -2.49), who are currently on treatment for low bone mass, or having risk factors for accelerated bone loss (glucocorticoids, aromatase inhibitors, etc.), consider repeat DXA in 1-2 years. Patients with osteopenia and no risk factors may consider follow-up every 3-5 years. References: National Osteoporosis Foundation. Clinician's Guide to Prevention and Treatment of Osteoporosis. Osteoporosis International. Rhoades, 2014. DXA Scan Screening, Reporting (FRAX Score) and Follow-up. Janine of Knowledge Evidence - based Summaries. [employer] Education and Research 2017. Report Dictated on Workstation: [id number] --- Final --- Dictated: 11/09/2019 11:55 am Dictating Physician: MD RICHARDSON JEFFREY Signed Date and Time: 11/09/2019 11:57 am Signed by: MD RICHARDSON JEFFREY Transcribed Date and Time: 11/09/2019 11:55 [facility], [place] DEXA Bone Density Axial Skzeynep jamil 11-09-2019 Patient Name: KRYSTINA LYNCH ---Bone Density--- Exam Date/Time 11/09/2019 08:55:52 EDT Exam OT Bone Density DEXA Axial Skeleton Ordering Physician PEDRO LIRIANO JENNIFER L. Accession Number [id number] CPT4 Codes 38288 () Reason For Exam fracture Report DXA BONE DENSITOMETRY: CLINICAL INDICATION: Screening for osteoporosis. COMPARISON: None TECHNIQUE: Quantitative bone mineral densitometry of the hip and wrist was performed with a dual energy x-ray observed absorptiometry device - [employer]. Regions of interest were obtained through the proximal femur and compared to the normal value of young adult men. Regions of interest were also obtained through the wrist with an average value determined and compared to the normal value of young adult men. The difference between your measured bone density and the bone density of a normal young man is expressed in standard deviations as the T score. Similarly, your measured bone density is also compared to age and race matched values, and expressed in standard deviations as the Z score. According to World Health Organization criteria: T-score of -1.0 or higher is normal. T-score between -1.1 to < -2.5 is low bone density or "osteopenia." T-score of -2.5 or lower is abnormally low, compatible with "osteoporosis." T-score of -2.5 or less plus fragility fracture indicates "severe osteoporosis." FINDINGS: Femoral neck LEFT Density: 0.920 g/cm2 T-score: -1.2. This falls within the osteopenic range. Z-score: -0.6 Total Hip LEFT Density: 0.878 g/cm2 T-score: Was 1.5. This falls within the osteopenic range. Z-score: -1.4 Comparison from prior examination: N/A Wrist: Radius 33% Density 0.764 g/cm2 T-score: -0.5. This falls within the normal range. Z-score: 0.0 Comparison from prior examination: N/A IMPRESSION: 1. Osteopenia (particularly in the hip). FRACTURE RISK: The estimated 10 year risk for a hip fracture is 0.9% and for a major osteoporosis-related fracture is 8.7%. (FRAX web version 3.11). RECOMMENDATIONS: General recommendations for prevention of bone loss include: 8168-6319 mg calcium intake per day for adults >50yrs, and no history of renal calculi 800-1000 IU of vitamin D3 per day for adults >50yrs, and no history of renal calculi Weight bearing exercise Discontinue smoking Avoid excessive use of caffeine, soft drinks, and alcoholic beverages In addition, balance training and fall prevention programs can help reduce the risk of fractures Pharmacologic treatment recommendations: Initiate pharmacologic treatment in patients with hip or vertebral fracture. In those with T scores lumbar spine by DXA In postmenopausal women and men age 50 or older with low bone mass (T score between -1.0 and -2.5 [osteopenia]) at the femoral neck, total hip, or lumbar spine by DXA have a 10 year hip fracture probability >/= 3% or a 10 year major osteoporosis-related fracture probability >/= 20% based on the [place]-adapted WHO fracture risk model (FRAX). Current FDA-approved pharmacologic options for osteoporosis treatment include bisphosphonates (Fosamax), ibandronate (Boniva), risedronate (Actonel), zoledronic acid (Reclast), estrogens and other hormonal therapies (Evista), parathyroid hormone (Forteo), and denosumab (Prolia). Initiation of pharmacologic therapy should happen only after thorough medical evaluation, discussion of risks and benefits, and with regular monitoring of the therapeutic regimen. Follow-up recommendations: Patients with osteoporosis or or at high risk for fracture should have follow-up bone density tests. For Medicare patients, routine testing is allowed every 2 years. Patients who have low bone mass (T score -2.0 to -2.49), who are currently on treatment for low bone mass, or having risk factors for accelerated bone loss (glucocorticoids, aromatase inhibitors, etc.), consider repeat DXA in 1-2 years. Patients with osteopenia and no risk factors may consider follow-up every 3-5 years. References: National Osteoporosis Foundation. Clinician's Guide to Prevention and Treatment of Osteoporosis. Osteoporosis International. Rhoades, 2014. DXA Scan Screening, Reporting (FRAX Score) and Follow-up. Janine of Knowledge Evidence - based Summaries. [employer] [facility] [employer] Education and Research 2017. Report Dictated on Workstation: [id number] --- Final --- Dictated: 11/09/2019 11:55 am Dictating Physician: MD RICHARDSON JEFFREY Signed Date and Time: 11/09/2019 11:57 am Signed by: MD RICHARDSON JEFFREY Transcribed Date and Time: 11/09/2019 11:55 [facility] [place], [place] Incoming Radiology Results From [facility] - 11/09/2019 11:58 AM EDT Patient Name: KRYSTINA MARKHAM ---Bone Density--- Exam Date/Time 11/09/2019 08:55:52 EDT Exam OT Bone Density DEXA Axial Skeleton Ordering Physician PEDRO LIRIANO JENNIFER L. Accession Number [id number] CPT4 Codes 83097 () Reason For Exam fracture Report DXA BONE DENSITOMETRY: CLINICAL INDICATION: Screening for osteoporosis. COMPARISON: None TECHNIQUE: Quantitative bone mineral densitometry of the hip and wrist was performed with a dual energy x-ray observed absorptiometry device - [employer]. Regions of interest were obtained through the proximal femur and compared to the normal value of young adult men. Regions of interest were also obtained through the wrist with an average value determined and compared to the normal value of young adult men. The difference between your measured bone density and the bone density of a normal young man is expressed in standard deviations as the T score. Similarly, your measured bone density is also compared to age and race matched values, and expressed in standard deviations as the Z score. According to World Health Organization criteria: T-score of -1.0 or higher is normal. T-score between -1.1 to < -2.5 is low bone density or "osteopenia." T-score of -2.5 or lower is abnormally low, compatible with osteoporosis. T-score of -2.5 or less plus fragility fracture indicates "severe osteoporosis." FINDINGS: Femoral neck LEFT Density: 0.920 g/cm2 T-score: -1.2. This falls within the osteopenic range. Z-score: -0.6 Total Hip LEFT Density: 0.878 g/cm2 T-score: Was 1.5. This falls within the osteopenic range. Z-score: -1.4 Comparison from prior examination: N/A Wrist: Radius 33% Density 0.764 g/cm2 T-score: -0.5. This falls within the normal range. Z-score: 0.0 Comparison from prior examination: N/A IMPRESSION: 1. Osteopenia (particularly in the hip). FRACTURE RISK: The estimated 10 year risk for a hip fracture is 0.9% and for a major osteoporosis-related fracture is 8.7%. (FRAX web version 3.11). RECOMMENDATIONS: General recommendations for prevention of bone loss include: 6540-7059 mg calcium intake per day for adults >50yrs, and no history of renal calculi 800-1000 IU of vitamin D3 per day for adults >50yrs, and no history of renal calculi Weight bearing exercise Discontinue smoking Avoid excessive use of caffeine, soft drinks, and alcoholic beverages In addition, balance training and fall prevention programs can help reduce the risk of fractures Pharmacologic treatment recommendations: Initiate pharmacologic treatment in patients with hip or vertebral fracture. In those with T scores lumbar spine by DXA In postmenopausal women and men age 50 or older with low bone mass (T score between -1.0 and -2.5 [osteopenia]) at the femoral neck, total hip, or lumbar spine by DXA have a 10 year hip fracture probability >/= 3% or a 10 year major osteoporosis-related fracture probability >/= 20% based on the [place]-adapted WHO fracture risk model (FRAX). Current FDA-approved pharmacologic options for osteoporosis treatment include bisphosphonates (Fosamax), ibandronate (Boniva), risedronate (Actonel), zoledronic acid (Reclast), estrogens and other hormonal therapies (Evista), parathyroid hormone (Forteo), and denosumab (Prolia). Initiation of pharmacologic therapy should happen only after thorough medical evaluation, discussion of risks and benefits, and with regular monitoring of the therapeutic regimen. Follow-up recommendations: Patients with osteoporosis or or at high risk for fracture should have follow-up bone density tests. For Medicare patients, routine testing is allowed every 2 years. Patients who have low bone mass (T score -2.0 to -2.49), who are currently on treatment for low bone mass, or having risk factors for accelerated bone loss (glucocorticoids, aromatase inhibitors, etc.), consider repeat DXA in 1-2 years. Patients with osteopenia and no risk factors may consider follow-up every 3-5 years. References: National Osteoporosis Foundation. Clinician's Guide to Prevention and Treatment of Osteoporosis. Osteoporosis International. Rhoades, 2014. DXA Scan Screening, Reporting (FRAX Score) and Follow-up. Janine of Knowledge Evidence - based Summaries. [facility] [employer] Education and Research 2017. Report Dictated on Workstation: [id number] --- Final --- Dictated: 11/09/2019 11:55 am Dictating Physician: MD RICHARDSON JEFFREY Signed Date and Time: 11/09/2019 11:57 am Signed by: MD RICHARDSON JEFFREY Transcribed Date and Time: 11/09/2019 11:55 [facility], [place] XR CLAVICLE LEFTOrdered By: Tavo Bowman on 09-03-2019 Patient Name: KRYSTINA LYNCH ---Diagnostic Radiology--- Exam Date/Time 09/03/2019 08:42:54 EST Exam CR Clavicle Complete Left Ordering Physician TAVO BOWMAN Accession Number [id number] CPT4 Codes 80931 () Reason For Exam see diagnosis Report CLINICAL INFORMATION: Clavicular fracture. Follow-up study. Two views of the left clavicle are provided. The examination is compared to a previous study dated 08/05/2019. FINDINGS: A fracture is redemonstrated involving the proximal diaphysis of the left clavicle. This demonstrates mild angulation and displacement. Some callus formation is thought evident consistent with healing. No new fractures are identified. Moderate to advanced degenerative changes are noted about the left shoulder. There is superior subluxation of the humeral head consistent with a chronic rotator cuff tear. The left shoulder remains normally located. The visualized left lung apex is clear. IMPRESSION: 1. Healing fracture of the proximal left clavicle. 2. Moderate degenerative changes about the left shoulder with evidence of a chronic rotator cuff tear. Report Dictated on --- Final --- Dictated: 09/03/2019 8:55 am Dictating Physician: MD RICHARDSON JEFFREY Signed Date and Time: 09/03/2019 8:58 am Signed by: MD RICHARDSON JEFFREY Transcribed Date and Time: 09/03/2019 8:55 [facility] Work Phone: [facility], [facility] Incoming Radiology Results From [facility] - 09/03/2019 8:59 AM EST Patient Name: KRYSTINA MARKHAM ---Diagnostic Radiology--- Exam Date/Time 09/03/2019 08:42:54 EST Exam CR Clavicle Complete Left Ordering Physician TAVO BOWMAN Accession Number [id number] CPT4 Codes 84525 () Reason For Exam see diagnosis Report CLINICAL INFORMATION: Clavicular fracture. Follow-up study. Two views of the left clavicle are provided. The examination is compared to a previous study dated 08/05/2019. FINDINGS: A fracture is redemonstrated involving the proximal diaphysis of the left clavicle. This demonstrates mild angulation and displacement. Some callus formation is thought evident consistent with healing. No new fractures are identified. Moderate to advanced degenerative changes are noted about the left shoulder. There is superior subluxation of the humeral head consistent with a chronic rotator cuff tear. The left shoulder remains normally located. The visualized left lung apex is clear. IMPRESSION: 1. Healing fracture of the proximal left clavicle. 2. Moderate degenerative changes about the left shoulder with evidence of a chronic rotator cuff tear. Report Dictated on --- Final --- Dictated: 09/03/2019 8:55 am Dictating Physician: MD RICHARDSON JEFFREY Signed Date and Time: 09/03/2019 8:58 am Signed by: MD RICHARDSON JEFFREY Transcribed Date and Time: 09/03/2019 8:55 [facility] Work Phone: XR CLAVICLE LEFTon Patient Name: KRYSTINA LYNCH ---Diagnostic Radiology--- Exam Date/Time 08/05/2019 07:54:36 EST Exam CR Clavicle Complete Left Ordering Physician TAVO BOWMAN Accession Number [id number] CPT4 Codes 19099 () Reason For Exam see diagnosis Report EXAMINATION: Left clavicle: Two views. COMPARISON: 07/21/2019. REASON FOR STUDY: Proximal clavicular fracture. FINDINGS: There is increasing caudal displacement of the distal and of the clavicle.. Acromioclavicular alignment is maintained. Regional bones appear intact and anatomically aligned. Overlying soft tissues appear normal. CONCLUSION(S): Increasingly displaced clavicular fracture. Report Dictated on --- Final --- Dictated: 08/05/2019 1:28 pm Dictating Physician: MD VILLARREAL B NELSON Signed Date and Time: 08/05/2019 1:34 pm Signed by: MD VILLARREAL B NELSON Transcribed Date and Time: 08/05/2019 1:28 [place], [place], [facility] Incoming Radiology Results From [facility] - 08/05/2019 1:36 PM EST Patient Name: KRYSTINA MARKHAM ---Diagnostic Radiology--- Exam Date/Time 08/05/2019 07:54:36 EST Exam CR Clavicle Complete Left Ordering Physician TAVO BOWMAN Accession Number [id number] CPT4 Codes 77788 () Reason For Exam see diagnosis Report EXAMINATION: Left clavicle: Two views. COMPARISON: 07/21/2019. REASON FOR STUDY: Proximal clavicular fracture. FINDINGS: There is increasing caudal displacement of the distal and of the clavicle.. Acromioclavicular alignment is maintained. Regional bones appear intact and anatomically aligned. Overlying soft tissues appear normal. CONCLUSION(S): Increasingly displaced clavicular fracture. Report Dictated on --- Final --- Dictated: 08/05/2019 1:28 pm Dictating Physician: MD VILLARREAL B NELSON Signed Date and Time: 08/05/2019 1:34 pm Signed by: MD VILLARREAL B NELSON Transcribed Date and Time: 08/05/2019 1:28 [place], [place] XR CHEST STANDARD (2 VW)on 09-20-2018 Patient Name: KRYSTINA LYNCH ---Diagnostic Radiology--- Exam Date/Time 07/21/2019 05:42:14 EST Exam CR Chest PA/LAT Ordering Physician JOSE MCMILLAN Accession Number [id number] CPT4 Codes 86800 () Reason For Exam fall, rib painn Report PA and lateral chest CLINICAL INDICATION: Fall with rib pain COMPARISON: 05/09/2017 Cardiac silhouette and mediastinal contours are not enlarged. There is mild atelectasis at the left lung base. No pleural effusion or pneumothorax is noted. Multiple old right rib fracture deformities are unchanged. There are no acute left rib fractures noted. Fracture is present in the medial third of the left clavicle with lateral fracture fragment inferiorly displaced by the full width of the bone. IMPRESSION: Atelectasis left lung base Displaced fracture medial third of the left clavicle Report Dictated on Workstation: [id number] --- Final --- Dictating Physician: MD MC DIANE Signed Date and Time: 07/21/2019 5:47 am Signed by: MD MC DIANE Transcribed Date and Time: 07/21/2019 5:48 [place], [place], [facility] Incoming Radiology Results From [facility] - 07/21/2019 5:48 AM EST Patient Name: KRYSTINA MARKHAM ---Diagnostic Radiology--- Exam Date/Time 07/21/2019 05:42:14 EST Exam CR Chest PA/LAT Ordering Physician JOSE MCMILLAN Accession Number [id number] CPT4 Codes 76952 () Reason For Exam fall, rib painn Report PA and lateral chest CLINICAL INDICATION: Fall with rib pain COMPARISON: 05/09/2017 Cardiac silhouette and mediastinal contours are not enlarged. There is mild atelectasis at the left lung base. No pleural effusion or pneumothorax is noted. Multiple old right rib fracture deformities are unchanged. There are no acute left rib fractures noted. Fracture is present in the medial third of the left clavicle with lateral fracture fragment inferiorly displaced by the full width of the bone. IMPRESSION: Atelectasis left lung base Displaced fracture medial third of the left clavicle Report Dictated on Workstation: [id number] --- Final --- Dictating Physician: MD MC DIANE Signed Date and Time: 07/21/2019 5:47 am Signed by: MD MC DIANE Transcribed Date and Time: 07/21/2019 5:48 [place], [place] XR LUMBAR SPINE (2-3 VIEWS)o n 07-21-2019 Patient Name: KRYSTINA LYNCH ---Diagnostic Radiology--- Exam Date/Time 07/21/2019 05:43:12 EST Exam CR Spine Lumbosacral 2 or 3 Views Ordering Physician JOSE MCMILLAN Accession Number [id number] CPT4 Codes 92950 () Reason For Exam fall, back pain Report Lumbar spine CLINICAL INDICATION: Fall with back pain AP, lateral and lumbosacral spot views were obtained. There are five nonrib-bearing lumbar-type vertebra. Mild superior endplate compression of L1 is not significantly changed compared to a lateral chest radiograph of 05/09/2017. Mild anterolisthesis of L5 on S1 is accompanied by severe facet arthropathy. There is slight dextroconvex curvature. Incidental note is made of diffuse small bowel colonic gas and ileus pattern. IMPRESSION: Old mild superior endplate compression deformity of L1, unchanged Minimal anterolisthesis L5 on S1 associated with severe facet arthropathy No acute appearing fractures Report Dictated on Workstation: [id number] --- Final --- Dictating Physician: MD MC DIANE Signed Date and Time: 07/21/2019 5:43 am Signed by: MD MC DIANE Transcribed Date and Time: 07/21/2019 5:44 [place], [place], [facility] Incoming Radiology Results From [facility] - 07/21/2019 5:44 AM EST Patient Name: KRYSTINA MARKHAM ---Diagnostic Radiology--- Exam Date/Time 07/21/2019 05:43:12 EST Exam CR Spine Lumbosacral 2 or 3 Views Ordering Physician JOSE MCMILLAN Accession Number [id number] CPT4 Codes 97208 () Reason For Exam fall, back pain Report Lumbar spine CLINICAL INDICATION: Fall with back pain AP, lateral and lumbosacral spot views were obtained. There are five nonrib-bearing lumbar-type vertebra. Mild superior endplate compression of L1 is not significantly changed compared to a lateral chest radiograph of 05/09/2017. Mild anterolisthesis of L5 on S1 is accompanied by severe facet arthropathy. There is slight dextroconvex curvature. Incidental note is made of diffuse small bowel colonic gas and ileus pattern. IMPRESSION: Old mild superior endplate compression deformity of L1, unchanged Minimal anterolisthesis L5 on S1 associated with severe facet arthropathy No acute appearing fractures Report Dictated on Workstation: [id number] --- Final --- Dictating Physician: MD MC DIANE Signed Date and Time: 07/21/2019 5:43 am Signed by: MD MC DIANE Transcribed Date and Time: 07/21/2019 5:44 [facility]Won [facility] Patient Name: KRYSTINA LYNCH ---Diagnostic Radiology--- Exam Date/Time 07/21/2019 05:44:06 EST Exam CR Shoulder 2+ Views Left Ordering Physician JOSE MCMILLAN Accession Number [id number] CPT4 Codes 02300 () Reason For Exam left clavicle pain after fall Report Left shoulder CLINICAL INDICATION: Left clavicle pain after fall Grashey, scapular Y and angled views were obtained. Fractures noted in the medial third of the left clavicle. Mild degenerative changes noted at the glenohumeral joint. Acromioclavicular joint is intact. IMPRESSION: Fracture of the medial third of the left clavicle Report Dictated on Workstation: [id number] --- Final --- Dictating Physician: MD MC DIANE Signed Date and Time: 07/21/2019 5:46 am Signed by: MD MC DIANE Transcribed Date and Time: 07/21/2019 5:47 [facility] [place] In[facility] Radiology Results From [facility] - 07/21/2019 5:47 AM EST Patient Name: KRYSTINA MARKHAM ---Diagnostic Radiology--- Exam Date/Time 07/21/2019 05:44:06 EST Exam CR Shoulder 2+ Views Left Ordering Physician Mode HERNANDEZTRENT JOSE Accession Number [id number] CPT4 Codes 64034 () Reason For Exam left clavicle pain after fall Report Left shoulder CLINICAL INDICATION: Left clavicle pain after fall Grashey, scapular Y and angled views were obtained. Fractures noted in the medial third of the left clavicle. Mild degenerative changes noted at the glenohumeral joint. Acromioclavicular joint is intact. IMPRESSION: Fracture of the medial third of the left clavicle Report Dictated on Workstation: [id number] --- Final --- Dictating Physician: MD MC DIANE Signed Date and Time: 07/21/2019 5:46 am Signed by: MD MC DIANE Transcribed Date and Time: 07/21/2019 5:47 [place], [place] Vital Signs Date Time Vital Sign Value Performing Clinician Isacc veronica 06-18-2025 15:00-0400 Body height 172.7 cm Sarah Brar CNP Work Phone: [facility] 06-18-2025 15:00-0400 Body mass index (BMI) [Ratio] 25.99 kg/m2 Sarah Brar CNP Work Phone: [facility] 06-18-2025 15:00-0400 Body weight 77.52 kg Sarah Brar CNP Work Phone: [facility] 06-18-2025 15:00-0400 Diastolic blood pressure 70 mm[Hg] Sarah Brar CNP Work Phone: [facility] 06-18-2025 15:00-0400 Heart rate 54 /min Sarah Mireles APRN [employer] Work Phone: [facility] 06-18-2025 15:00-0400 SaO2% (BldA) [Mass fraction] 99 % Sarah Mireles APRN [employer] Work Phone: [facility] 06-18-2025 15:00-0400 Systolic blood pressure 116 mm[Hg] Sarah Brar CNP Work Phone: [facility] 06-10-2025 15:03-0400 Diastolic blood pressure 74 mm[Hg] Reese Stafford MD Work Phone: [facility] 06-10-2025 15:03-0400 Heart rate 84 /min Reese Stafford MD Work Phone: [facility] 06-10-2025 15:03-0400 Respiratory rate 17 /min Reese Stafford MD Work Phone: [facility] 06-10-2025 15:03-0400 Systolic blood pressure 102 mm[Hg] Reese Stafford MD Work Phone: [facility] 06-10-2025 09:35-0400 SaO2% (BldA) [Mass fraction] 97 % Reese Stafford MD Work Phone: [facility] 06-09-2025 20:58-0400 Body temperature 98.8 [degF] Reese Stafford MD Work Phone: [facility] 06-09-2025 06:00-0400 Body mass index (BMI) [Ratio] 25.76 kg/m2 Reese Stafford MD Work Phone: [facility] 06-09-2025 06:00-0400 Body weight 76.84 kg Reese Stafford MD Work Phone: [facility] 06-04-2025 14:30-0400 Body height 172.7 cm Reese Stafford MD Work Phone: [facility] 06-04-2025 00:36-0400 SaO2% (BldA) [Mass fraction] 94.9 % Reese Stafford MD Work Phone: [facility] 06-02-2025 15:55-0400 Body temperature 98.49 [degF] Prince Mudrakola DO Work Phone: [facility] 06-02-2025 15:55-0400 Diastolic blood pressure 74 mm[Hg] Prince Mudrakola DO Work Phone: [facility] 06-02-2025 15:55-0400 Heart rate 72 /min Prince Mudrakola DO Work Phone: [facility] 06-02-2025 15:55-0400 Respiratory rate 18 /min Prince Joseph DO Work Phone: [facility] 06-02-2025 15:55-0400 SaO2% (BldA) [Mass fraction] 93 % Prince Joseph DO Work Phone: [facility] 06-02-2025 15:55-0400 Systolic blood pressure 120 mm[Hg] Prince Joseph DO Work Phone: [facility] 06-02-2025 03:50-0400 Body mass index (BMI) [Ratio] 25.88 kg/m2 Prince Joseph DO Work Phone: [facility] 06-02-2025 03:50-0400 Body weight 77.2 kg Prince Joseph DO Work Phone: [facility] 05-26-2025 12:07-0400 Body height 172.7 cm Prince Joseph DO Work Phone: [facility] 05-22-2025 03:42-0400 SaO2% (BldA) [Mass fraction] 97.8 % Prince Joseph DO Work Phone: [facility] 11-03-2024 16:16-0500 Body temperature 97.59 [degF] Charlie Mcintyre MD Work Phone: [facility] 11-03-2024 16:16-0500 Diastolic blood pressure 54 mm[Hg] Charlie Mcintyre MD Work Phone: [facility] 11-03-2024 16:16-0500 Heart rate 64 /min Charlie Mcintyre MD Work Phone: [facility] 11-03-2024 16:16-0500 Respiratory rate 16 /min Charlie Mcintyre MD Work Phone: [facility] 11-03-2024 16:16-0500 SaO2% (BldA) [Mass fraction] 96 % Charlie Mcintyre MD Work Phone: [facility] 11-03-2024 16:16-0500 Systolic blood pressure 107 mm[Hg] Charlie Mcintyre MD Work Phone: [facility] 11-02-2024 21:35-0500 Body height 172.7 cm Charlie Mcintyre MD Work Phone: [facility] 11-02-2024 21:35-0500 Body mass index (BMI) [Ratio] 29.5 kg/m2 Charlie Mcintyre MD Work Phone: [facility] 11-02-2024 21:35-0500 Body weight 88 kg Charlie Mcintyre MD Work Phone: [facility] 10-14-2024 13:28-0500 Body height 172.7 cm Jessenia Kraynick [employer] Work Phone: [facility] 10-14-2024 13:28-0500 Body mass index (BMI) [Ratio] 28.72 kg/m2 Jessenia Kraynick [employer] C[employer] MANAGER - [employer] Work Phone: [facility] 10-14-2024 13:28-0500 Body weight 85.68 kg Jessenia Kraynick DISTRI[employer] C[employer] MANAGER - [employer] Work Phone: [facility] 10-14-2024 13:28-0500 Diastolic blood pressure 70 mm[Hg] Jessenia Kraynick [employer] C[employer] MANAGER - [employer] Work Phone: [facility] 10-14-2024 13:28-0500 Heart rate 62 /min Jessenia Kraynick [employer]RI[employer] C[employer] MANAGER - [employer] Work Phone: [facility] 10-14-2024 13:28-0500 SaO2% (BldA) [Mass fraction] 91 % Jessenia Kraynick DISTRI[employer] C[employer] MANAGER - [employer] Work Phone: [facility] 10-14-2024 13:28-0500 Systolic blood pressure 100 mm[Hg] Jessenia Kraynick DISTRI[employer] C[employer] MANAGER - [employer] Work Phone: [facility] 09-28-2024 15:25-0500 Body height 172.7 cm Olya Nunes MD Work Phone: [facility] 09-28-2024 15:25-0500 Body mass index (BMI) [Ratio] 28.71 kg/m2 Olya Nunes MD Work Phone: [facility] 09-28-2024 15:25-0500 Body temperature 98.1 [degF] Olya Nunes MD Work Phone: [facility] 09-28-2024 15:25-0500 Body weight 85.64 kg Olya Nunes MD Work Phone: [facility] 09-28-2024 15:25-0500 Diastolic blood pressure 56 mm[Hg] Olya Nunes MD Work Phone: [facility] 09-28-2024 15:25-0500 Heart rate 63 /min Olya Nunes MD Work Phone: [facility] 09-28-2024 15:25-0500 SaO2% (BldA) [Mass fraction] 91 % Olya Nunes MD Work Phone: [facility] Comment on above: 93 POX on room air _[facility] 09-28-2024 15:25-0500 Systolic blood pressure 108 mm[Hg] Olya Nunes MD Work Phone: [facility] 09-16-2024 11:52-0500 SaO2% (BldA) [Mass fraction] 92 % Charlie Mcintyre MD Work Phone: [facility] 09-16-2024 10:53-0500 Body temperature 97.2 [degF] Charlie Mcintyre MD Work Phone: [facility] 09-16-2024 10:53-0500 Diastolic blood pressure 68 mm[Hg] Charlie Mcintyre MD Work Phone: [facility] 09-16-2024 10:53-0500 Heart rate 74 /min Charlie Mcintyre MD Work Phone: [facility] 09-16-2024 10:53-0500 Respiratory rate 16 /min Charlie Mcintyre MD Work Phone: [facility] 09-16-2024 10:53-0500 Systolic blood pressure 104 mm[Hg] Charlie Mcintyre MD Work Phone: [facility] 09-16-2024 06:12-0500 Body mass index (BMI) [Ratio] 26.08 kg/m2 Charlie Mcintyre MD Work Phone: [facility] 09-16-2024 06:12-0500 Body weight 80.11 kg Charlie Mcintyre MD Work Phone: [facility] 09-12-2024 10:32-0500 Body height 175.3 cm Charlie Mcintyre MD Work Phone: [facility] 08-22-2024 11:37-0500 Body temperature 97.2 [degF] Karthik Guerin MD Work Phone: [employer] 08-22-2024 11:37-0500 Diastolic blood pressure 60 mm[Hg] Karthik Guerin MD Work Phone: [facility] 08-22-2024 11:37-0500 Heart rate 69 /min Karthik Guerin MD Work Phone: [facility] 08-22-2024 11:37-0500 Respiratory rate 21 /min Karthik Guerin MD Work Phone: [facility] 08-22-2024 11:37-0500 SaO2% (BldA) [Mass fraction] 100 % Karthik Guerin MD Work Phone: [facility] 08-22-2024 11:37-0500 Systolic blood pressure 100 mm[Hg] Karthik Guerin MD Work Phone: [facility] 08-19-2024 17:06-0500 Body height 175.3 cm Karthik Guerin MD Work Phone: [facility] 08-19-2024 17:06-0500 Body mass index (BMI) [Ratio] 28.8 kg/m2 Karthik Guerin MD Work Phone: [facility] 08-19-2024 17:06-0500 Body weight 88.45 kg Karthik Guerin MD Work Phone: [facility] 04-15-2024 09:04-0400 Body height 175.3 cm Bryan Tracey MD Work Phone: [facility] 04-15-2024 09:04-0400 Body mass index (BMI) [Ratio] 26.4 kg/m2 Bryan Tracey MD Work Phone: [facility] 04-15-2024 09:04-0400 Body temperature 98.6 [degF] Bryan Tracey MD Work Phone: [facility] 04-15-2024 09:04-0400 Body weight 81.1 kg Bryan Tracey MD Work Phone: [facility] 04-15-2024 09:04-0400 Diastolic blood pressure 64 mm[Hg] Bryan Tracey MD Work Phone: [facility] 04-15-2024 09:04-0400 Heart rate 66 /min Bryan Tracey MD Work Phone: [facility] 04-15-2024 09:04-0400 SaO2% (BldA) [Mass fraction] 94 % Bryan Tracey MD Work Phone: [facility] 04-15-2024 09:04-0400 Systolic blood pressure 144 mm[Hg] Bryan Tracey MD Work Phone: [facility] 03-02-2024 10:33-0400 Body height 175.3 cm Jamia Sierra MD Work Phone: [facility] 03-02-2024 10:33-0400 Body mass index (BMI) [Ratio] 28.96 kg/m2 Jamia Sierra MD Work Phone: [facility] 03-02-2024 10:33-0400 Body temperature 98.4 [degF] Jamia Sierra MD Work Phone: [facility] 03-02-2024 10:33-0400 Body weight 88.95 kg Jamia Sierra MD Work Phone: [facility] 03-02-2024 10:33-0400 Diastolic blood pressure 63 mm[Hg] Jamia Sierra MD Work Phone: [facility] 03-02-2024 10:33-0400 Heart rate 67 /min Jamia Sierra MD Work Phone: [facility] 03-02-2024 10:33-0400 Systolic blood pressure 112 mm[Hg] Jamia Sierra MD Work Phone: [facility] 02-17-2024 15:26-0400 Body temperature 97.3 [degF] Ronnie Avery DO Work Phone: [facility] 02-17-2024 15:26-0400 Diastolic blood pressure 52 mm[Hg] Ronnie Avery DO Work Phone: [facility] 02-17-2024 15:26-0400 Heart rate 55 /min Ronnie Avery DO Work Phone: [facility] 02-17-2024 15:26-0400 Respiratory rate 16 /min Ronnie Avery DO Work Phone: [facility] 02-17-2024 15:26-0400 SaO2% (BldA) [Mass fraction] 92 % Ronnie Avery DO Work Phone: [facility] 02-17-2024 15:26-0400 Systolic blood pressure 102 mm[Hg] Ronnie Avery DO Work Phone: [facility] 02-14-2024 03:25-0400 Body height 175.3 cm Ronnie Avery DO Work Phone: [facility] 02-14-2024 03:25-0400 Body mass index (BMI) [Ratio] 27.35 kg/m2 Ronnie Avery DO Work Phone: [facility] 02-14-2024 03:25-0400 Body weight 84 kg Ronnie Avery DO Work Phone: [facility] 11-14-2023 10:50-0400 Body temperature 97 [degF] Mario Alberto Paris MD Work Phone: [facility] 11-14-2023 10:50-0400 Diastolic blood pressure 68 mm[Hg] Mario Alberto Paris MD Work Phone: [facility] 11-14-2023 10:50-0400 Heart rate 68 /min Mario Alberto Paris MD Work Phone: [facility] 11-14-2023 10:50-0400 Respiratory rate 16 /min Mario Alberto Paris MD Work Phone: [facility] 11-14-2023 10:50-0400 SaO2% (BldA) [Mass fraction] 95 % Mario Alberto Paris MD Work Phone: [facility] 11-14-2023 10:50-0400 Systolic blood pressure 116 mm[Hg] Mario Alberto Paris MD Work Phone: [facility] 11-12-2023 14:31-0400 Body height 175.3 cm Mario Alberto Paris MD Work Phone: [facility] 11-12-2023 14:31-0400 Body mass index (BMI) [Ratio] 27.17 kg/m2 Mario Alberto Paris MD Work Phone: [facility] 11-12-2023 14:31-0400 Body weight 83.46 kg Mario Alberto Paris MD Work Phone: [facility] 01-08-2023 08:10-0400 Body height 175.3 cm Allan Duran MD Work Phone: [facility] 01-08-2023 08:10-0400 Body mass index (BMI) [Ratio] 29.24 kg/m2 Allan Duran MD Work Phone: [facility] 01-08-2023 08:10-0400 Body temperature 97.2 [degF] Allan Duran MD Work Phone: [facility] 01-08-2023 08:10-0400 Body weight 89.81 kg Allan Duran MD Work Phone: [facility] 01-08-2023 08:10-0400 Diastolic blood pressure 64 mm[Hg] Allan Duran MD Work Phone: [facility] 01-08-2023 08:10-0400 Heart rate 66 /min Allan Duran MD Work Phone: [facility] 01-08-2023 08:10-0400 Systolic blood pressure 109 mm[Hg] Allan Duran MD Work Phone: [facility] 01-07-2023 09:14-0400 Body height 175.3 cm Jamia Sierra MD Work Phone: [facility] 01-07-2023 09:14-0400 Body mass index (BMI) [Ratio] 29.25 kg/m2 Jamia Sierra MD Work Phone: [facility] 01-07-2023 09:14-0400 Body temperature 97.7 [degF] Jamia Sierra MD Work Phone: [facility] 01-07-2023 09:14-0400 Body weight 89.86 kg Jamia Sierra MD Work Phone: [facility] 01-07-2023 09:14-0400 Diastolic blood pressure 64 mm[Hg] Jamia Sierra MD Work Phone: [facility] 01-07-2023 09:14-0400 Heart rate 82 /min Jamia Sierra MD Work Phone: [facility] 01-07-2023 09:14-0400 Systolic blood pressure 112 mm[Hg] Jamia Sierra MD Work Phone: [facility] 01-01-2023 12:57-0400 Body height 175.3 cm Gilbert Gombash DO Work Phone: [facility] 01-01-2023 08:19-0400 Body temperature 97.11 [degF] Gilbert Gombash DO Work Phone: [facility] 01-01-2023 08:19-0400 Diastolic blood pressure 82 mm[Hg] Gilbert Gombash DO Work Phone: [facility] 01-01-2023 08:19-0400 Heart rate 75 /min Gilbert Gombash DO Work Phone: [facility] 01-01-2023 08:19-0400 Respiratory rate 16 /min Gilbert Gombash DO Work Phone: [facility] 01-01-2023 08:19-0400 SaO2% (BldA) [Mass fraction] 96 % Gilbert Gombash DO Work Phone: [facility] 01-01-2023 08:19-0400 Systolic blood pressure 133 mm[Hg] Gilbert Gombash DO Work Phone: [facility] 12-30-2022 04:54-0400 Body mass index (BMI) [Ratio] 28.13 kg/m2 Gilbert Gombash DO Work Phone: [facility] 12-30-2022 04:54-0400 Body weight 86.41 kg Gilbert Gombash DO Work Phone: [facility] 12-26-2022 10:07-0400 Body mass index (BMI) [Ratio] 26.58 kg/m2 Kalia Foote MD Work Phone: [facility] 12-26-2022 10:07-0400 Body temperature 97.7 [degF] Kalia Foote MD Work Phone: [facility] 12-26-2022 10:07-0400 Body weight 81.65 kg Kalia Foote MD Work Phone: [facility] 12-26-2022 10:07-0400 Diastolic blood pressure 96 mm[Hg] Kalia Foote MD Work Phone: [facility] 12-26-2022 10:07-0400 Heart rate 68 /min Kalia Foote MD Work Phone: [facility] 12-26-2022 10:07-0400 Respiratory rate 17 /min Kalia Foote MD Work Phone: [facility] 12-26-2022 10:07-0400 SaO2% (BldA) [Mass fraction] 96 % Kalia Foote MD Work Phone: [facility] 12-26-2022 10:07-0400 Systolic blood pressure 148 mm[Hg] Kalia Foote MD Work Phone: [facility] 09-19-2022 15:18-0500 Body height 175.3 cm Ronnie Almaraz MD Work Phone: [facility] 09-19-2022 15:18-0500 Body mass index (BMI) [Ratio] 28.83 kg/m2 Ronnie Almaraz MD Work Phone: [facility] 09-19-2022 15:18-0500 Body weight 88.54 kg Ronnie Almaraz MD Work Phone: [facility] 09-19-2022 15:18-0500 Diastolic blood pressure 56 mm[Hg] Ronnie Almaraz MD Work Phone: [facility] 09-19-2022 15:18-0500 Heart rate 72 /min Ronnie Almaraz MD Work Phone: [facility] 09-19-2022 15:18-0500 Respiratory rate 16 /min Ronnie Almaraz MD Work Phone: [facility] 09-19-2022 15:18-0500 SaO2% (BldA) [Mass fraction] 93 % Ronnie Almaraz MD Work Phone: [facility] 09-19-2022 15:18-0500 Systolic blood pressure 90 mm[Hg] Ronnie Almaraz MD Work Phone: [facility] 09-14-2022 08:42-0500 Heart rate 68 /min Tiffanie Gaffney DO Work Phone: [facility] 09-14-2022 08:42-0500 Respiratory rate 18 /min Tiffanie aGffney DO Work Phone: [facility] 09-14-2022 08:42-0500 SaO2% (BldA) [Mass fraction] 95 % Tiffanie Gaffney DO Work Phone: [facility] 09-14-2022 08:16-0500 Body temperature 97.39 [degF] Tiffanie Gaffney DO Work Phone: [facility] 09-14-2022 08:16-0500 Diastolic blood pressure 67 mm[Hg] Tiffanie Gaffney DO Work Phone: [facility] 09-14-2022 08:16-0500 Systolic blood pressure 109 mm[Hg] Tiffanie Gaffney DO Work Phone: [facility] 09-13-2022 08:10-0500 Body height 175.3 cm Tiffanie Gaffney DO Work Phone: [facility] 09-13-2022 08:10-0500 Body mass index (BMI) [Ratio] 28.06 kg/m2 Tiffanie Gaffney DO Work Phone: [facility] 09-13-2022 08:10-0500 Body weight 86.18 kg Tiffanie Gaffney DO Work Phone: [facility] 08-10-2022 10:52-0500 Body height 175.3 cm Dixie Christine MD Work Phone: [facility] 08-10-2022 10:52-0500 Body mass index (BMI) [Ratio] 28.28 kg/m2 Dixie Christine MD Work Phone: [facility] 08-10-2022 10:52-0500 Body weight 86.86 kg Dixie Christine MD Work Phone: [facility] 08-10-2022 10:52-0500 Diastolic blood pressure 69 mm[Hg] Dixie Christine MD Work Phone: [facility] 08-10-2022 10:52-0500 Heart rate 70 /min Dixie Christine MD Work Phone: [facility] 08-10-2022 10:52-0500 Systolic blood pressure 116 mm[Hg] Dixie Christine MD Work Phone: [facility] 07-02-2020 09:30-0400 Pulse Oximetry 92 % Ric [facility], [place] 07-02-2020 06:32-0400 Body Temperature 98.01 [degF] Ric [facility] 07-02-2020 04:00-0400 BP [facility] 84 mm[facility]Hg[facility] [place] [facility] 04:00-0400 BP Systolic 127 mm[Hg[facility] [place] 07-02-2020 04:00-0400 Pulse (Heart Rate) 90 /min [facility] 07-02-2020 04:00-0400 Respiratory Rate 14 /[facility] [place] 07-01-2020 07:30-0400 BMI (Body Mass Index) 30.41 kg/m2 Ric [facility] 07-01-2020 07:30-0400 Body weight 93.4 kg Ric [facility] 07-01-2020 07:30-0400 Height 175.3 cm Ric [facility] 05-25-2020 10:58-0400 BP Diastolic 80 mm[Hg] [facility] 05-25-2020 10:58-0400 BP Systolic 115 mm[Hg] [facility] 05-25-2020 10:58-0400 Pulse (Heart Rate) 88 /min [facility] 05-25-2020 10:58-0400 Pulse Oximetry 93 % [facility] 05-25-2020 10:58-0400 Respiratory Rate 20 /min [facility] 05-25-2020 10:37-0400 Body Temperature 97.3 [degF] Ronnie French [facility] 05-25-2020 08:07-0400 BMI (Body Mass Index) 32.49 kg/m2 Ronnie French [facility] 05-25-2020 08:07-0400 Body weight 99.79 kg Ronnie French [facility] 05-25-2020 08:07-0400 Height 175.3 cm Ronnie French [facility] 02-25-2020 10:45-0400 BP Diastolic 96 mm[Hg] [facility] Gerard [facility], [place] 02-25-2020 10:45-0400 BP Systolic 122 mm[Hg] [facility] Gerard [facility] 02-25-2020 10:45-0400 Pulse (Heart Rate) 107 /[facility] [place] 02-25-2020 10:45-0400 Pulse Oximetry 92 % [facility] [place] 02-25-2020 10:45-0400 Respiratory Rate 92 /min [facility] Gerard [facility] 02-25-2020 09:40-0400 Body Temperature 97.3 [degF] Madiha Stoll [facility] 02-25-2020 08:28-0400 BMI (Body Mass Index) 28.89 kg/m2 [facility] [place] 02-25-2020 08:28-0400 Body weight 86.18 [facility] [place] 02-25-2020 08:28-0400 Height 172.7 cm [facility] Gerard [facility] 02-11-2020 09:35-0400 BMI (Body Mass Index) 31.64 kg/m2 [facility] [place] 02-11-2020 09:35-0400 Body weight 88.91 kg Madiha Stoll [facility] 02-11-2020 09:35-0400 Height 167.6 cm [facility] Gerard [facility] 02-11-2020 09:35-0400 Pulse (Heart Rate) 92 /min [facility] Ger[facility] 02-11-2020 09:35-0400 Pulse Oximetry 92 % Madiha French [facility] 02-11-2020 09:35-0400 Respiratory Rate 20 /min Madiha French [facility] 10-27-2019 10:57-0500 BP Diastolic 94 mm[Hg] Maria A French [facility] 10-27-2019 10:57-0500 BP Systolic 141 mm[Hg] Maria A French [facility] 10-27-2019 10:57-0500 Pulse (Heart Rate) 99 /min Maria A French [facility] 10-27-2019 10:57-0500 Pulse Oximetry 94 % [facility] [place] 10-27-2019 10:57-0500 Respiratory Rate 18 /min Maria A French [facility] 10-27-2019 08:45-0500 BMI (Body Mass Index) 31.16 kg/m2 Maria A French [facility] 10-27-2019 08:45-0500 Body Temperature 98.29 [degF] Maria A French [facility] 10-27-2019 08:45-0500 Body weight 95.71 kg [facility] [place] 10-27-2019 08:45-0500 Height 175.3 cm Maria A French [place], [place] 07-21-2019 04:09-0500 Body Temperature 98.8 [degF] [facility] [place] 07-21-2019 04:09-0500 BP Diastolic 84 mm[Hg] [facility] [place] 07-21-2019 04:09-0500 BP Systolic 155 mm[Hg] [facility] [place] 07-21-2019 04:09-0500 Pulse (Heart Rate) 91 /min [facility] [place] 07-21-2019 04:09-0500 Pulse Oximetry 94 % Jose French [facility] [place] 07-21-2019 04:09-0500 Respiratory Rate 18 /min [facility] [place] Encounters Encounter Date Encounter Type Care Provider Facility Start: 06-30-2025 ambulatory Reji NEAL Faci lity:[facility] Start: 06-28-2025 ambulatory Reji NEAL Faci lity:[facility] Start: 06-23-2025 End: 06-23-2025 ambulatory Reji NEAL Facility:[facility] Start: 06-21-2025 ambulatory Reji NEAL Faci lity:[facility] Start: 06-18-2025 End: 06-18-2025 Office outpatient visit 25 minutes Sarah Brar CNP Work Phone: [facility] - Remy Mitchell Comment on above: Heart failure with i mproved ejection fraction (HFimpEF) (HCC) (Primary Dx); Encounter for removal of cardiac resynchronization therapy defibrillator (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); Permanent atrial fibrillation (HCC); Chronic hyponatremia; Elevated LFTs Start: 06-18-2025 End: 06-18-2025 Telephone encounter Brigitte Valdes LPN [facility] - [place] Comment on above: Other (Vanc level no tification ) Start: 06-18-2025 ambulatory Reji NEAL Faci lity:[facility] Start: 06-15-2025 End: 06-15-2025 Telephone encounter Jose M Nielsen RCP [facility] Resp Therapy Start: 06-14-2025 ambulatory Reji NEAL Faci lity:[facility] Start: 06-11-2025 ambulatory Reji NEAL Faci lity:[facility] Start: 06-03-2025 End: 06-10-2025 Evaluation and management of inpatient Reese Stafford MD Work Phone: [facility] Cardiac Progressive Care Unit PCU 2E Start: 06-03-2025 End: 06-03-2025 Telephone encounter Shirley Portillo LPN [facility] - [place] Start: 06-03-2025 End: 06-03-2025 ambulatory Reji NEAL Facility:[facility] Start: 06-02-2025 End: 06-02-2025 Telephone encounter Roger Munoz MD Work Phone: [facility] [place] Start: 05-27-2025 End: 05-30-2025 Refill Pedro Subramanian MD Work Phone: [facility] Comment on above: Persistent depressiv e disorder Start: 05-21-2025 End: 05-21-2025 ambulatory MICHAEL LANGE [facility] Start: 05-21-2025 End: 05-21-2025 ambulatory UNKNOWN PROVIDER Facility:[facility] Start: 05-20-2025 End: 06-02-2025 Evaluation and management of inpatient Prince Joseph DO Work Phone: [facility] Cardiac Progressive Care Unit PCU 5W Start: 05-15-2025 End: 05-17-2025 Refill Toi Davis MD Work Phone: [facility] Comment on above: Essential hypertensi on; HFrEF (heart failure with reduced ejection fraction) (HCC) Start: 04-07-2025 End: 04-07-2025 ambulatory TOI [facility] Start: 03-18-2025 End: 03-18-2025 Refill Toi Davis MD Work Phone: [facility] Comment on above: Chronic bronchitis, unspecified chronic bronchitis type (HCC) Start: 03-12-2025 End: 03-16-2025 Refill Jamia Sierra MD Work Phone: [facility] Comment on above: Malnutrition, unspec ified type (HCC); Essential hypertension HFrEF (heart failure with reduced ejection fraction) (HCC) Start: 01-09-2025 End: 01-12-2025 Refill Toi Davis MD Work Phone: [facility] Comment on above: Persistent depressiv e disorder Start: 01-06-2025 End: 01-06-2025 Refill Pedro Subramanian MD Work Phone: [facility] Start: 12-23-2024 End: 12-23-2024 ambulatory PEDRO SUBRAMANIAN [facility] Start: 12-13-2024 End: 12-14-2024 Refill Toi Davis MD Work Phone: [facility] Comment on above: HFrEF (heart failure with reduced ejection fraction) (HCC) Start: 11-05-2024 End: 11-05-2024 Telephone encounter Olya Foote CMA [facility] Comment on above: Other Start: 11-03-2024 End: 11-10-2024 Telephone encounter Ric Foote MD Work Phone: [facility] Comment on above: Appointment Request Start: 11-02-2024 End: 11-02-2024 Evaluation and management of inpatient CHARLIE ENNISANA ROSA [facility] Start: 11-01-2024 End: 11-03-2024 Evaluation and management of inpatient Charlie Mcintyre MD Work Phone: [facility] Cardiac Progressive Care Unit PCU 2E Comment on above: Acute hypercapnic re spiratory failure (HCC) (Primary Dx); Acute on chronic systolic (congestive) heart failure (HCC) Start: 10-14-2024 End: 10-14-2024 Office outpatient visit 25 minutes Jessenia Brar CNP Work Phone: [facility] Comment on above: Chronic HFrEF (heart failure with reduced ejection fraction) (HCC) (Primary Dx); HFrEF (heart failure with reduced ejection fraction) (HCC); Permanent atrial fibrillation (HCC); On continuous oral anticoagulation; Presence of cardiac resynchronization therapy defibrillator (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); Personal history of smoking Start: 10-14-2024 End: 10-14-2024 ambulatory JESSENIA CRYSTAL [facility] Start: 10-02-2024 End: 10-02-2024 Telephone encounter Pedro Subramanian MD Work Phone: [facility] Comment on above: Other (Labs) Start: 09-28-2024 End: 09-28-2024 Office outpatient visit 25 minutes Tanvi Gonzales MD Work Phone: [facility] Comment on above: Dyspnea due to conge stive heart failure (HCC) (Primary Dx); Chronic bronchitis, unspecified chronic bronchitis type (HCC) Start: 09-28-2024 End: 09-28-2024 ambulatory TANVI GONZALES [facility] Start: 09-24-2024 End: 09-28-2024 ambulatory Terri Arcos RN [facility] Clinical Communication Start: 09-24-2024 End: 09-28-2024 Patient encounter procedure Terri Arcos RN [facility] Clinical Communication Start: 09-24-2024 End: 09-24-2024 Telephone encounter Liza Casper MD Work Phone: [facility] Start: 09-22-2024 End: 09-22-2024 ambulatory Kimberlyn Ayala [facility] Start: 09-17-2024 End: 09-17-2024 ambulatory PEDRO SUBRAMANIAN [facility] Start: 09-16-2024 End: 09-16-2024 Medication Management Toi Davis MD Work Phone: [facility] Comment on above: Malnutrition, unspec ified type (HCC) (Primary Dx); Paroxysmal atrial fibrillation (HCC); HFrEF (heart failure with reduced ejection fraction) (HCC); Chronic bronchitis, unspecified chronic bronchitis type (HCC); Essential hypertension; Persistent depressive disorder Start: 09-10-2024 End: 09-16-2024 Evaluation and management of inpatient Charlie Mcintyre MD Work Phone: [facility] Cardiac Progressive Care Unit PCU 2E Comment on above: Acute on chronic con gestive heart failure, unspecified heart failure type (HCC) (Primary Dx); Elevated serum creatinine; Acute on chronic systolic (congestive) heart failure (HCC); Non-pressure chronic ulcer of other part of right foot with unspecified severity (HCC); Moderate malnutrition (CMS/HCC) (HCC); Cor, pulmonale, acute (CMS/HCC) (HCC); Current moderate episode of major depressive disorder without prior episode (HCC); Alcohol abuse with withdrawal, uncomplicated (HCC); 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) Start: 09-08-2024 End: 09-30-2024 Telephone encounter Pedro Subramanian MD Work Phone: [facility] Comment on above: Other (Returning castro l ) Start: 09-04-2024 End: 06-07-2025 ambulatory Julisa Mckinnon RN [facility] Start: 09-04-2024 End: 06-07-2025 Patient encounter procedure Gely Guy RN [facility] Clinical Communication Start: 08-25-2024 End: 08-25-2024 Telephone encounter Pedro Subramanian MD Work Phone: [facility] Start: 08-19-2024 End: 08-22-2024 Evaluation and management of inpatient Karthik Guerin MD Work Phone: [facility] Cardiac Progressive Care Unit PCU 2E Comment on above: Pneumonia of right l ower lobe due to infectious organism (Primary Dx); Chronic congestive heart failure, unspecified heart failure type (HCC); Atrial fibrillation, unspecified type (HCC); Chronic bronchitis, unspecified chronic bronchitis type (HCC) Start: 08-19-2024 End: 08-19-2024 ambulatory Sophie De Oliveira RN [facility] Clinical Communication Start: 08-19-2024 End: 08-19-2024 Patient encounter procedure Sophie De Oliveira RN [facility] Clinical Communication Start: 08-12-2024 End: 08-13-2024 Telephone encounter Bryan Tracey MD Work Phone: [facility] Central Scheduling Comment on above: Other (Central sched uling ) Start: 06-03-2024 End: 06-03-2024 Refill Jamia Sierra MD Work Phone: [facility] Comment on above: Chronic bronchitis, unspecified chronic bronchitis type (HCC) Start: 05-13-2024 End: 07-22-2024 Telephone encounter Ric Foote MD Work Phone: [facility] Comment on above: Other Start: 04-17-2024 End: 04-17-2024 Telephone encounter Bryan Tracey MD Work Phone: [facility] Central Scheduling Comment on above: Other (Scheduling) Start: 04-15-2024 End: 04-15-2024 Refill Bryan Tracey MD Work Phone: [facility] Start: 04-15-2024 End: 04-15-2024 Office outpatient new 60 minutes Bryan Tracey MD Work Phone: [facility] Comment on above: Mucopurulent chronic bronchitis (HCC) (Primary Dx); Chronic bronchitis, unspecified chronic bronchitis type (HCC); DELORES on CPAP; Presence of implantable cardioverter-defibrillator (ICD); Paroxysmal atrial fibrillation (HCC); HFrEF (heart failure with reduced ejection fraction) (HCC); Cigarette smoker; Personal history of smoking Start: 03-02-2024 End: 03-02-2024 Office outpatient visit 15 minutes Siria Dumont MD Work Phone: [facility] Comment on above: Cervical spondylosis (Primary Dx); Hyponatremia; Paroxysmal atrial fibrillation (HCC); HFrEF (heart failure with reduced ejection fraction) (HCC); Current moderate episode of major depressive disorder without prior episode (HCC); Chronic bronchitis, unspecified chronic bronchitis type (HCC); Essential hypertension; Alcohol abuse Start: 03-01-2024 End: 03-02-2024 Refill Jamia Sierra MD Work Phone: [facility] Comment on above: Current moderate epi sode of major depressive disorder without prior episode (HCC); Chronic bronchitis, unspecified chronic bronchitis type (HCC) Start: 02-18-2024 End: 02-27-2024 Telephone encounter Charles Polk MD Work Phone: [facility] Start: 02-14-2024 Telephone encounter Ric Foote MD Work Phone: [facility] Comment on above: Orders (MRI/PPM form ) Start: 02-13-2024 End: 02-17-2024 Evaluation and management of inpatient Ronnie Jose Avery DO Work Phone: [facility] Cardiac Progressive Care Unit PCU 2E Comment on above: Right arm numbness ( Primary Dx); Stroke-like symptoms; Cervical spondylosis; Non-pressure chronic ulcer of other part of right foot with unspecified severity (HCC); Acute respiratory failure with hypoxia (HCC); Diabetes due to undrl condition w oth diabetic neuro comp (HCC); Alcohol abuse with withdrawal, uncomplicated (HCC); Current moderate episode of major depressive disorder without prior episode (HCC); Anemia in other chronic diseases classified elsewhere; HFrEF (heart failure with reduced ejection fraction) (HCC); Permanent atrial fibrillation (HCC) Start: 12-12-2023 Refill Matt Victoria MD Work Phone: [facility] Medical Surgical Unit MSU 4S Start: 12-04-2023 Refill Jair lagunas MD Work Phone: [facility] Comment on above: Chronic bronchitis, unspecified chronic bronchitis type (HCC) Current moderate epi sode of major depressive disorder without prior episode (HCC) Start: 11-11-2023 End: 11-14-2023 Evaluation and management of inpatient Mario Alberto Paris MD Work Phone: [facility] Medical Surgical Unit [facility] 4S Comment on above: COPD exacerbation (H CC) (Primary Dx); Acute on chronic congestive heart failure, unspecified heart failure type (HCC); HFrEF (heart failure with reduced ejection fraction) (HCC); Paroxysmal atrial fibrillation (HCC); Presence of implantable cardioverter-defibrillator (ICD) Start: 10-06-2023 Refill Jamia blackman MD Work Phone: [facility] Comment on above: Chronic bronchitis, unspecified chronic bronchitis type (HCC) Start: 08-31-2023 Refill Lan Villegas MD Work Phone: [facility] Start: 08-30-2023 Refill Jamia blackman MD Work Phone: [facility] Comment on above: Chronic bronchitis, unspecified chronic bronchitis type (HCC) Start: 08-26-2023 Refill Jamia blackman MD Work Phone: [facility] Comment on above: Current moderate epi sode of major depressive disorder without prior episode (HCC) Start: 05-31-2023 Refill Jessenia shin [employer] Work Phone: [facility] Comment on above: HFrEF (heart failure with reduced ejection fraction) (CMS/HCC) (HCC) Start: 05-23-2023 Refill Jamia blackman MD Work Phone: [facility] Comment on above: Current moderate epi sode of major depressive disorder without prior episode (HCC) Start: 03-30-2023 Refill Gifty luque MD Work Phone: [facility] Comment on above: Chronic bronchitis, unspecified chronic bronchitis type (HCC) Start: 02-27-2023 Refill Jessenia shin [employer] 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 MANAGER - [employer] Work Phone: [facility] Comment on above: HFrEF (heart failure with reduced ejection fraction) (CMS/HCC) (HCC) Chronic bronchitis, unspecified chronic bronchitis type (HCC) Start: 02-23-2023 Refill Jamia blackman MD Work Phone: [facility] Comment on above: Current moderate epi sode of major depressive disorder without prior episode (HCC) Start: 01-21-2023 Telephone encounter Ric Foote MD Work Phone: [facility] Comment on above: OTHER Start: 01-08-2023 End: 01-08-2023 Office outpatient new 60 minutes Allan Duran MD Work Phone: [facility] Comment on above: Other closed displac ed fracture of proximal end of left humerus, initial encounter (Primary Dx) Start: 01-07-2023 End: 01-07-2023 Office outpatient visit 25 minutes Eunice Pritchett MD Work Phone: [facility] Comment on above: Chronic hyponatremia (Primary Dx); Alcohol abuse; Tobacco abuse; Colon cancer screening; Need for vaccination for pneumococcus; Anemia in other chronic diseases classified elsewhere; Chronic bronchitis, unspecified chronic bronchitis type (HCC) Start: 01-02-2023 Telephone encounter Jamia simon MD Work Phone: [facility] Comment on above: Hospital Follow-up Start: 12-29-2022 End: 01-01-2023 Evaluation and management of inpatient Gilbert Balderas DO Work Phone: [facility] 4S TELEMETRY Comment on above: Hyponatremia (Primar y Dx); Other closed displaced fracture of proximal end of left humerus, initial encounter; Other osteoporosis, unspecified pathological fracture presence; Low hemoglobin; Chronic bronchitis, unspecified chronic bronchitis type (HCC) Start: 12-26-2022 End: 12-26-2022 Emergency department patient visit Kalia Foote MD Work Phone: [facility] ED Comment on above: Other closed displac ed fracture of proximal end of left humerus, initial encounter (Primary Dx) Start: 12-20-2022 Refill Lucero cartagena MD Work Phone: [facility] Start: 11-28-2022 Refill Jamia blackman MD Work Phone: [facility] Start: 11-19-2022 Refill Jose M Wiggins MD Work Phone: [facility] Comment on above: Current moderate epi sode of major depressive disorder without prior episode (HCC); Chronic bronchitis, unspecified chronic bronchitis type (HCC) Start: 11-07-2022 ambulatory Jennifer Jiang [facility] Comment on above: Care Management Outr each Start: 09-21-2022 Refill Lucero cartagena MD Work Phone: [facility] Comment on above: Paroxysmal atrial fi brillation (CMS/HCC) (HCC) Start: 09-19-2022 End: 09-19-2022 Office outpatient visit 25 minutes Ronnie Almaraz MD Work Phone: [facility] Comment on above: HFrEF (heart failure with reduced ejection fraction) (CMS/HCC) (HCC) (Primary Dx); Essential hypertension; Tobacco abuse; Presence of implantable cardioverter-defibrillator (ICD) Start: 09-19-2022 Telephone encounter Ronnie winkler MD Work Phone: [facility] Medical [facility] Cardiology Comment on above: OTHER Start: 09-14-2022 Telephone encounter Harman bobo MD Work Phone: [facility] Comment on above: Hospital Follow-up ( /) Start: 09-12-2022 End: 09-12-2022 Subsequent hospital visit by physician [facility] Xr Portable 1 [facility] X-ray Imaging Comment on above: Arrived Start: 09-12-2022 End: 09-14-2022 Evaluation and management of inpatient Tiffanie Gaffney DO Work Phone: [facility] 2E TELEMETRY Comment on above: COPD exacerbation (C MS/HCC) (HCC) (Primary Dx); Chronic hyponatremia Start: 09-12-2022 Telephone encounter Ronnie winkler MD Work Phone: [facility] Comment on above: Missed Appointment Start: 08-10-2022 End: 08-10-2022 Office outpatient visit 15 minutes Dixie Christine MD Work Phone: [facility] Comment on above: Generalized abdomina l pain (Primary Dx) Start: 09-27-2021 End: 09-27-2021 Subsequent hospital visit by physician Carmine Andrade MD Work Phone: [facility] Lab Comment on above: Tobacco abuse Start: 04-13-2021 End: 04-13-2021 Subsequent hospital visit by physician Eunice Pritchett MD Work Phone: [facility] Radiology Comment on above: Toe infection Start: 04-12-2021 End: 04-12-2021 Subsequent hospital visit by physician Eunice Pritchett MD Work Phone: [facility] [place] [facility] Start: 02-27-2021 End: 02-27-2021 Subsequent hospital visit by physician Ashley Yang DO Work Phone: [facility] Start: 12-28-2020 End: 12-28-2020 Subsequent hospital visit by physician Jose M Wiggins MD Work Phone: [facility] [place] [facility] Start: 11-29-2020 End: 11-29-2020 Subsequent hospital visit by physician Charlie Del Rosario [facility] [place] [facility] Start: 11-21-2020 End: 11-21-2020 Subsequent hospital visit by physician Jose M Wiggins Work Phone: [facility] Radiology Comment on above: Chronic bilateral lo w back pain without sciatica Start: 11-21-2020 End: 11-21-2020 Subsequent hospital visit by physician Jose M Wiggins Work Phone: [facility] [place] [facility] Start: 07-20-2020 End: 07-20-2020 Subsequent hospital visit by physician Farnaz Davis Work Phone: [facility] ECHO Comment on above: Dilated cardiomyopat hy (HCC) Start: 07-01-2020 End: 07-02-2020 Subsequent hospital visit by physician Ric Foote Work Phone: [facility] 1C Capacity Management Comment on above: Arrived Start: 06-22-2020 End: 06-22-2020 Subsequent hospital visit by physician Ric Foote Work Phone: [facility] Radiology Comment on above: Pre-op testing Start: 05-25-2020 End: 05-25-2020 Subsequent hospital visit by physician Ronnie Almaraz Work Phone: [facility] Cath & IR Lab Comment on above: Arrived Start: 05-04-2020 End: 05-04-2020 Subsequent hospital visit by physician Eunice Pritchett Work Phone: [facility] [place] [facility] Start: 03-29-2020 End: 03-29-2020 Subsequent hospital visit by physician Farnaz Davis Work Phone: [facility] ECHO Comment on above: Non-ischemic cardiom yopathy (HCC); Atrial flutter, unspecified type (HCC) Start: 02-25-2020 End: 02-25-2020 Subsequent hospital visit by physician Madiha Stoll Work Phone: [facility] General Surgery Comment on above: History of adenomato us polyp of colon; Chronic obstructive pulmonary disease, unspecified COPD type (HCC) Start: 02-11-2020 End: 02-11-2020 Subsequent hospital visit by physician Madiha Stoll Work Phone: [facility] CT Scan Comment on above: Lung nodule Start: 11-09-2019 End: 11-09-2019 Subsequent hospital visit by physician Ashley Liriano Work Phone: [facility] Bone Density Comment on above: Osteoporosis, unspec ified osteoporosis type, unspecified pathological fracture presence; Compression fracture of thoracic vertebra with routine healing, unspecified thoracic vertebral level, subsequent encounter Start: 10-27-2019 End: 10-27-2019 Subsequent hospital visit by physician Maria A Harrell Work Phone: [facility] Comment on above: Arrived Start: 10-26-2019 End: 10-26-2019 Subsequent hospital visit by physician Eunice Pritchett Work Phone: [facility] [place] [facility] Start: 10-05-2019 End: 10-05-2019 Subsequent hospital visit by physician Eunice Pritchett Work Phone: [facility] [place] [facility] Start: 09-19-2019 End: 09-19-2019 Subsequent hospital visit by physician Eunice Pritchett MD Work Phone: [facility] CT Scan Comment on above: Encounter for screen ing for lung cancer Start: 09-15-2019 End: 09-15-2019 Subsequent hospital visit by physician Eunice Pritchett MD Work Phone: [facility] [place] [facility] Start: 09-03-2019 End: 09-03-2019 Subsequent hospital visit by physician Tavo Bowman MD Work Phone: [facility] Comment on above: Closed nondisplaced fracture of sternal end of left clavicle with routine healing, subsequent encounter Start: 08-05-2019 End: 08-05-2019 Subsequent hospital visit by physician Tavo Bowman Work Phone: [facility] Comment on above: Closed nondisplaced fracture of sternal end of left clavicle, initial encounter Start: 07-21-2019 End: 07-21-2019 Emergency department patient visit Jose Freitas Work Phone: [facility] ED Comment on above: Displaced fracture o f shaft of left clavicle, initial encounter for closed fracture (Primary Dx); Contusion of left chest wall, initial encounter; Contusion of left side of back, initial encounter Procedures Date Procedure Procedure Detail Performing Clinician Start: 06-10-2025 Glucose quantitative blood xcpt reagent strip Charlie Westfall MD Work Phone: Start: 06-10-2025 IR CVC PICC PLACEMENT E matty Rene MD Work Phone: Start: 06-10-2025 Glucose quantitative blood xcpt reagent strip Charlie Westfall MD Work Phone: Start: 06-10-2025 Glucose quantitative blood xcpt reagent strip Charlie Westfall MD Work Phone: Start: 06-10-2025 Mri any jt upper ext remity w/o & w/contr matrl Ronnie Pelletier MD Work Phone: Start: 06-10-2025 Comprehensive metabolic panel Rjei Leon MD Work Phone: Start: 06-10-2025 Manual Differential panel - Blood Reji Leon MD Work Phone: Start: 06-09-2025 Glucose quantitative blood xcpt reagent strip Charlie Westfall MD Work Phone: Start: 06-09-2025 C-reactive protein Lupe Saavedra MD Work Phone: Start: 06-09-2025 End: 06-09-2025 Sedimentation rate rbc automated Alek Saavedra MD Work Phone: Start: 06-09-2025 Radex shoulder compl ete minimum 2 views Mayda Shankar MD Work Phone: Start: 06-09-2025 Glucose quantitative blood xcpt reagent strip Charlie Westfall MD Work Phone: Start: 06-09-2025 Ecg routine ecg w/le ast 12 lds trcg only w/o i&r Mayda Shankar MD Work Phone: Start: 06-09-2025 Radiologic exam chest 2 views Ashley Ayad DO Work Phone: Start: 06-09-2025 Glucose quantitative blood xcpt reagent strip Charlie Westfall MD Work Phone: Start: 06-09-2025 Comprehensive metabolic panel Reji Leon MD Work Phone: Start: 06-09-2025 Manual differential performed [Presence] in Blood Reji Leon MD Work Phone: Start: 06-08-2025 Glucose quantitative blood xcpt reagent strip Charlie Westfall MD Work Phone: Start: 06-08-2025 Glucose quantitative blood xcpt reagent strip Charlie Westfall MD Work Phone: Start: 06-08-2025 Ecg routine ecg w/le ast 12 lds trcg only w/o i&r Mayda Shankar MD Work Phone: Start: 06-08-2025 Glucose quantitative blood xcpt reagent strip Charlie Westfall MD Work Phone: Start: 06-08-2025 HOME O2 EVAL (DESATU RATION SCREEN) Mayda Shankar MD Work Phone: Start: 06-08-2025 Glucose quantitative blood xcpt reagent strip Charlie Westfall MD Work Phone: Start: 06-08-2025 Comprehensive metabolic panel Reji Leon MD Work Phone: Start: 06-08-2025 Manual Differential panel - Blood Reji Leon MD Work Phone: Start: 06-07-2025 Glucose quantitative blood xcpt reagent strip Charlie Westfall MD Work Phone: Start: 06-07-2025 Glucose quantitative blood xcpt reagent strip Charlie Westfall MD Work Phone: Start: 06-07-2025 Glucose quantitative blood xcpt reagent strip Charlie Westfall MD Work Phone: Start: 06-07-2025 End: 06-07-2025 Comprehensive metabolic panel Reji rios MD Work Phone: Start: 06-06-2025 Glucose quantitative blood xcpt reagent strip Charlie Westfall MD Work Phone: Start: 06-06-2025 Glucose quantitative blood xcpt reagent strip Charlie Westfall MD Work Phone: Start: 06-06-2025 Ecg routine ecg w/le ast 12 lds trcg only w/o i&r Ashley Yang DO Work Phone: Start: 06-06-2025 Glucose quantitative blood xcpt reagent strip Charlie Westfall MD Work Phone: Start: 06-06-2025 Drug screen quantita tive vancomycin Reji Leon MD Work Phone: Start: 06-06-2025 Glucose quantitative blood xcpt reagent strip Charlie Westfall MD Work Phone: Start: 06-06-2025 CHEST PHYSIOTHERAPY Pet reji Leon MD Work Phone: Start: 06-06-2025 Comprehensive metabolic panel Reji Leon MD Work Phone: Start: 06-06-2025 Manual Differential panel - Blood Reji Leon MD Work Phone: Start: 06-05-2025 Glucose quantitative blood xcpt reagent strip Charlie Westfall MD Work Phone: Start: 06-05-2025 CHEST PHYSIOTHERAPY Pet reji Leon MD Work Phone: Start: 06-05-2025 Ecg routine ecg w/le ast 12 lds trcg only w/o i&r Mayda Shankar MD Work Phone: Start: 06-05-2025 Glucose quantitative blood xcpt reagent strip Charlie Westfall MD Work Phone: Start: 06-05-2025 Comprehensive metabolic panel Reji Leon MD Work Phone: Start: 06-05-2025 Drug screen quantita tive vancomycin Reji Leon MD Work Phone: Start: 06-05-2025 Manual Differential panel - Blood Reji Leon MD Work Phone: Start: 06-04-2025 Glucose quantitative blood xcpt reagent strip Charlie Westfall MD Work Phone: Start: 06-04-2025 Iadna s aureus methi cillin resist amp probe tq Ean Hughes MD Work Phone: Start: 06-04-2025 Echo tthrc r-t 2d w/ wom-mode compl spec&colr d Zita Rene MD Work Phone: Start: 06-04-2025 HIGH SENSITIVITY TRO PONIN, SERIAL, THIRD TEST Mayda Shankar MD Work Phone: Start: 06-04-2025 HIGH SENSITIVITY DYLAN PONIN, SERIAL, SECOND TEST Mayda Shankar MD Work Phone: Start: 06-04-2025 End: 06-04-2025 Prothrombin time Mayda Shankar MD Work Phone: Start: 06-04-2025 End: 06-04-2025 Assay of lactate Mayda Shankar MD Work Phone: Start: 06-04-2025 Bacteria identified in Blood by Culture Mayda Shankar MD Work Phone: Start: 06-04-2025 HIGH SENSITIVITY TRO PONIN, SERIAL BASELINE Mayda Shankar MD Work Phone: Start: 06-04-2025 Respiratory pathogen s DNA and RNA panel - Nasopharynx by GEO with non-probe detection Reji Leon MD Work Phone: Start: 06-04-2025 CHEST PHYSIOTHERAPY Pet reji Leon MD Work Phone: Start: 06-04-2025 Ecg routine ecg w/le ast 12 lds trcg only w/o i&r Reji Leon MD Work Phone: Start: 06-04-2025 Ct angiography chest w/contrast/noncontrast Reese Stafford MD Work Phone: Start: 06-04-2025 Blood gases any comb ination ph pco2 po2 co2 hco3 Reji Leon MD Work Phone: Start: 06-04-2025 End: 06-04-2025 Assay of magnesium Reji Leon MD Work Phone: Start: 06-04-2025 HIGH SENSITIVITY TRO PONIN, SERIAL, SECOND TEST Reese Stafford MD Work Phone: Start: 06-04-2025 Blood gases any comb ination ph pco2 po2 co2 hco3 Reese Stafford MD Work Phone: Start: 06-04-2025 HC SARSCOV2&INF A&B& RSV AMP PRB Reese Stafford MD Work Phone: Start: 06-04-2025 Comprehensive metabolic panel Reese Stafford MD Work Phone: Start: 06-04-2025 Manual Differential panel - Blood Reese Stafford MD Work Phone: Start: 06-04-2025 Radiologic exam ches t single view Reese Stafford MD Work Phone: Start: 06-04-2025 Ecg routine ecg w/le ast 12 lds trcg only w/o i&r Reese Stafford MD Work Phone: Start: 06-02-2025 Radiologic exam ches t single view Reid Berg MD Work Phone: Start: 06-02-2025 Insertion picc w/rs&i 5 yr/> Reid Berg MD Work Phone: Start: 06-02-2025 Comprehensive metabolic panel Shanelle Weir MD Work Phone: Start: 06-01-2025 End: 06-01-2025 Us abdominal real time w/image documentation Alek Coles DO Work Phone: Start: 06-01-2025 Basic metabolic pane l calcium total Shanelle Weir MD Work Phone: Start: 06-01-2025 Assay of osmolality urine Henny Whiting DO Work Phone: Start: 06-01-2025 Iaadiadoo not otherw ise specified Ean Hughes MD Work Phone: Start: 06-01-2025 LEGIONELLA AND STREP TOCOCCUS URINE ANTIGEN, ORDERABLE Ean Hughes MD Work Phone: Start: 06-01-2025 URINE HOLD CUP Ean mancia MD Work Phone: Start: 06-01-2025 Ecg routine ecg w/le ast 12 lds trcg only w/o i&r Alek Coles DO Work Phone: Start: 06-01-2025 Assay of phosphorus inorganic Henny Whiting DO Work Phone: Start: 06-01-2025 Comprehensive metabolic panel Shanelle Weir MD Work Phone: Start: 05-31-2025 Basic metabolic pane l calcium total Jarus J Harrison DO Work Phone: Start: 05-31-2025 Drug screen quantita tive vancomycin Leelee Narinder-Marita DO Work Phone: Start: 05-30-2025 Basic metabolic pane l calcium total Jarus J Harrison DO Work Phone: Start: 05-29-2025 Basic metabolic pane l calcium total Jarus J Harrison DO Work Phone: Start: 2025 Basic metabolic pane l calcium total Jarus J Harrison DO Work Phone: Start: 2025 Drug screen quantita tive vancomycin Leelee Narinder-Marita DO Work Phone: Start: 05-27-2025 Basic metabolic pane l calcium total Jarus J Harrison DO Work Phone: Start: 05-26-2025 Radiologic exam ches t single view Olya Jo [employer] MANAGER - [employer] Work Phone: Start: 05-26-2025 Echo transthorc r-t 2d w/wo m-mode rec f-up/lmtd Karthik Mendoza MD Work Phone: Start: 05-26-2025 Comprehensive metabolic panel Nessa Arellano MD Work Phone: Start: 05-26-2025 Hepatitis b surf ant ibody hbsab Rachael Ngo MD Work Phone: Start: 05-26-2025 Iaad ia hepatitis b surface antigen Rachael Ngo MD Work Phone: Start: 05-25-2025 Ecg routine ecg w/le ast 12 lds trcg only w/o i&r Olya Jo [employer] C[employer] MANAGER - [employer] Work Phone: Start: 05-25-2025 Compatibility each u nit electronic Nancy Urena [employer] C[employer] MANAGER - [employer] Work Phone: Start: 05-25-2025 End: 05-25-2025 Echo transesophag r-t 2d w/prb img acquisj i&r Nancy rUena [employer] MANAGER - [employer] Work Phone: Start: 05-25-2025 Electrophysiology study Nancy Urena [employer] MANAGER - [employer] Work Phone: Start: 05-25-2025 Ecg routine ecg w/le ast 12 lds trcg only w/o i&r Alek Coles DO Work Phone: Start: 05-25-2025 Assay of osmolality blood Alek Coles DO Work Phone: Start: 05-25-2025 Comprehensive metabolic panel Nessa Arellano MD Work Phone: Start: 05-24-2025 Antibody screen JOSE M THANH MARAVILLA Comment on above: Performed By: #### L [id number] ####Fire Operations Forester: ALEIDA BAEZA ([id number])[facility] ([facility])[address] [place] [address] Start: 05-24-2025 Antibody screen rbc each serum technique Nancy Urena DIST[employer] C[employer] MANAGER - [employer] Work Phone: Start: 05-24-2025 Bacteria identified in Blood by Culture Chaparro Arndt MD Work Phone: Start: 05-24-2025 Comprehensive metabolic panel Nessa Arellano MD Work Phone: Start: 05-24-2025 Drug screen quantita tive vancomycin Leelee Narinder-Marita DO Work Phone: Start: 05-23-2025 Radiologic exam ches t single view Jayna Neopaney DO Work Phone: Start: 05-23-2025 End: 05-23-2025 Comprehensive metabolic panel Leelee Narinder-Marita DO Work Phone: Start: 05-22-2025 Basic metabolic pane l calcium total Reeya Jerry DO Work Phone: Start: 05-22-2025 Bacteria identified in Blood by Culture Brenda Quezada DO Work Phone: Start: 05-22-2025 Basic metabolic pane l calcium total Jayna Neopaney DO Work Phone: Start: 05-22-2025 Ecg routine ecg w/le ast 12 lds trcg only w/o i&r Reeya Jerry DO Work Phone: Start: 05-22-2025 EXTUBATION Ramy Squires DO Work Phone: Start: 05-22-2025 Radiologic exam ches t single view Jayna Neopaney DO Work Phone: Start: 05-22-2025 Basic metabolic pane l calcium total Jayna Neopaney DO Work Phone: Start: 05-22-2025 Drug screen quantita tive vancomycin Leelee Narinder-Marita DO Work Phone: Start: 05-22-2025 Blood gases any comb ination ph pco2 po2 co2 hco3 Reeya Jerry DO Work Phone: Start: 05-21-2025 Basic metabolic pane l calcium total Jayna Neopaney DO Work Phone: Start: 05-21-2025 Basic metabolic pane l calcium total Jayna Neopaney DO Work Phone: Start: 05-21-2025 Basic metabolic pane l calcium total Jayna Neopaney DO Work Phone: Start: 05-21-2025 ETHYL GLUCURONIDE SC REEN, URINE Reeya Jerry DO Work Phone: Start: 05-21-2025 Basic metabolic pane l calcium total Jayna Neopaney DO Work Phone: Start: 05-21-2025 TTE w or wo fol wcon,Doppler Reeya Jerry DO Work Phone: Start: 05-21-2025 Basic metabolic pane l calcium total Jayna Neopaney DO Work Phone: Start: 05-21-2025 C-reactive protein Reey a Jerry DO Work Phone: Start: 05-21-2025 Radiologic exam ches t single view Jayna Neopaney DO Work Phone: Start: 05-21-2025 Blood gases any comb ination ph pco2 po2 co2 hco3 Jayna Neopaney DO Work Phone: Start: 05-21-2025 Respiratory pathogen s DNA and RNA panel - Lower respiratory specimen by GEO with non-probe detection Jayna Neopaney DO Work Phone: Start: 05-21-2025 Smr prim src gram/gi emsa stain bct fungi/cell Jayna Neopaney DO Work Phone: Start: 05-21-2025 Basic metabolic pane l calcium total Jayna Neopaney DO Work Phone: Start: 05-21-2025 Drug test def 1-7 classes Jayna Bowling DO Work Phone: Start: 05-21-2025 Manual differential performed [Presence] in Blood Jayna Bowling DO Work Phone: Start: 05-21-2025 PATHOLOGY REVIEW Jayna tellez DO Work Phone: Start: 05-21-2025 Radiologic exam abdomen 1 view Michael Lange MD Work Phone: Start: 05-21-2025 Basic metabolic pane l calcium total Jayna Bowling DO Work Phone: Start: 05-21-2025 VOLATILE PANEL,SERUM Vi zuly Joseph DO Work Phone: Start: 05-21-2025 Insj non-tunneled ce ntral venous cath age 6 yr/> Prince Joseph DO Work Phone: Start: 05-20-2025 End: 05-21-2025 Radiologic exam chest single view Dawn Francisco [employer] MANAGER - [employer] Work Phone: Start: 05-20-2025 Assay of osmolality urine Prince Joseph DO Work Phone: Start: 05-20-2025 Drug tst prsmv instr mnt chem analyzers pr date Prince Joseph DO Work Phone: Start: 05-20-2025 LEGIONELLA AND STREP TOCOCCUS URINE ANTIGEN, ORDERABLE Michael Lange MD Work Phone: Start: 05-20-2025 URINE HOLD CUP Michael Lange MD Work Phone: Start: 05-20-2025 Urnls dip stick/tabl et reagent auto microscopy Prince Joseph DO Work Phone: Start: 05-20-2025 Ct thorax w/o contra st material Prince Joseph DO Work Phone: Start: 05-20-2025 Ct head/brain w/o co ntrast material Prince Joseph DO Work Phone: Start: 05-20-2025 Ecg routine ecg w/le ast 12 lds trcg only w/o i&r Prince Joseph DO Work Phone: Start: 05-20-2025 Radiologic exam ches t single view Prince Joseph DO Work Phone: Start: 05-20-2025 HC SARSCOV2&INF A&B& RSV AMP PRB Prince Joseph DO Work Phone: Start: 05-20-2025 Respiratory pathogen s DNA and RNA panel - Nasopharynx by GEO with non-probe detection Michael Lange MD Work Phone: Start: 05-20-2025 Bacteria identified in Blood by Culture Prince Joseph DO Work Phone: Start: 05-20-2025 Blood gases any comb ination ph pco2 po2 co2 hco3 Prince Joseph DO Work Phone: Start: 05-20-2025 Blood pathogens pane l by GEO with non-probe detection in Positive blood culture Prince Joseph DO Work Phone: Start: 05-20-2025 Comprehensive metabolic panel Prince Joseph DO Work Phone: Start: 05-20-2025 Drug test def 1-7 classes Prince Joseph DO Work Phone: Start: 05-20-2025 Manual Differential panel - Blood Prince Joseph DO Work Phone: Start: 11-03-2024 Comprehensive metabolic panel Sukumar South MD Work Phone: Start: 11-02-2024 Electroencephalogram Klaudia Subramanian MD Work Phone: Start: 11-02-2024 Comprehensive metabolic panel Sukumar South MD Work Phone: Start: 11-02-2024 Ecg routine ecg w/le ast 12 lds trcg only w/o i&r Sukumar South MD Work Phone: Start: 11-01-2024 MEDICATION ASSISTED TREATMENT PANEL Sukumar South MD Work Phone: Start: 11-01-2024 Urinalysis complete panel - Urine Karthik Wong MD Work Phone: Start: 11-01-2024 Urnls dip stick/tabl et reagent auto microscopy Krathik Wong MD Work Phone: Start: 11-01-2024 Creatine kinase total R am Buffy South MD Work Phone: Start: 11-01-2024 Assay of troponin quantitative Karthik Wong MD Work Phone: Start: 11-01-2024 Drug test def 1-7 classes Lucero Delgado MD Work Phone: Start: 11-01-2024 SARS-COV-2, FLU A/B, AND RSV COMBO Charlie Mcintyre MD Work Phone: Start: 11-01-2024 Radiologic exam ches t single view Karthik Wong MD Work Phone: Start: 11-01-2024 Ct head/brain w/o co ntrast material Karthik Wong MD Work Phone: Start: 11-01-2024 Ecg routine ecg w/le ast 12 lds trcg only w/o i&r Karthik Wong MD Work Phone: Start: 11-01-2024 Basic metabolic pane l calcium total Karthik Wong MD Work Phone: Start: 11-01-2024 Blood gases any comb ination ph pco2 po2 co2 hco3 Karthik Wong MD Work Phone: Start: 10-14-2024 Follow-up visit JOSE M VZÁQUEZ Start: 09-28-2024 Follow-up visit JOSE M VÁZQUEZ Start: 09-16-2024 Comprehensive metabolic panel Toi Davis MD Work Phone: Start: 09-15-2024 Comprehensive metabolic panel Toi Davis MD Work Phone: Start: 09-14-2024 Us abdominal real ti me w/image limited Toi Davis MD Work Phone: Start: 09-14-2024 Comprehensive metabolic panel Toi Davis MD Work Phone: Start: 09-13-2024 Comprehensive metabolic panel Toi Davis MD Work Phone: Start: 09-13-2024 Manual Differential panel - Blood Toi Davis MD Work Phone: Start: 09-12-2024 Blood gases any comb ination ph pco2 po2 co2 hco3 Gifty Holguin MD Work Phone: Start: 09-12-2024 Comprehensive metabolic panel Toi Davis MD Work Phone: Start: 09-11-2024 ETHYL GLUCURONIDE SC REEN, URINE Toi Davis MD Work Phone: Start: 09-11-2024 Comprehensive metabolic panel Toi Davis MD Work Phone: Start: 09-11-2024 Manual Differential panel - Blood Toi Davis MD Work Phone: Start: 09-10-2024 Assay of troponin quantitative Charlie Mcintyre MD Work Phone: Start: 09-10-2024 Drug test def 1-7 classes Toi Davis MD Work Phone: Start: 09-10-2024 Radiologic exam ches t single view Charlie Mcintyre MD Work Phone: Start: 09-10-2024 Basic metabolic pane l calcium total Charlie Mcintyre MD Work Phone: Start: 09-10-2024 Blood gases any comb ination ph pco2 po2 co2 hco3 Charlie Mcintyre MD Work Phone: Start: 09-10-2024 Ecg routine ecg w/le ast 12 lds trcg only w/o i&r Charlie Mcintyre MD Work Phone: Start: 08-22-2024 HOME O2 EVAL (DESATU RATION SCREEN) Sukumar South MD Work Phone: Start: 08-22-2024 Smr prim src gram/gi emsa stain bct fungi/cell Gifty Holguin MD Work Phone: Start: 08-22-2024 Comprehensive metabolic panel Gifty Holguin MD Work Phone: Start: 08-21-2024 Comprehensive metabolic panel Gifty Holguin MD Work Phone: Start: 08-20-2024 Ct head/brain w/o co ntrast material Matt Victoria MD Work Phone: Start: 08-20-2024 Us abdominal real ti me w/image limited Pedro Subramanian MD Work Phone: Start: 08-20-2024 Radiologic exam chest 2 views Gifty Holguin MD Work Phone: Start: 08-20-2024 Blood gases any comb ination ph pco2 po2 co2 hco3 Gifty Holguin MD Work Phone: Start: 08-20-2024 End: 08-20-2024 Comprehensive metabolic panel Gifty talbert MD Work Phone: Start: 08-20-2024 LEGIONELLA AND STREP TOCOCCUS URINE ANTIGEN, ORDERABLE Gifty Holguin MD Work Phone: Start: 08-20-2024 Urinalysis complete panel - Urine Gifty Holguin MD Work Phone: Start: 08-20-2024 URINE HOLD CUP Gifty Holguin MD Work Phone: Start: 08-20-2024 Urnls dip stick/tabl et reagent auto microscopy Karthik Guerin MD Work Phone: Start: 08-19-2024 Blood gases any comb ination ph pco2 po2 co2 hco3 Gifty Holguin MD Work Phone: Start: 08-19-2024 Assay of magnesium Alysiaa cindy Holguin MD Work Phone: Start: 08-19-2024 End: 08-19-2024 Bacteria identified in Blood by Culture Kartihk Guerin MD Work Phone: Start: 08-19-2024 Radiologic exam ches t single view Karthik Guerin MD Work Phone: Start: 08-19-2024 Respiratory pathogen s DNA and RNA panel - Nasopharynx by GEO with non-probe detection Gifty Holguin MD Work Phone: Start: 08-19-2024 SARS-COV-2, FLU A/B, AND RSV COMBO Karthik Guerin MD Work Phone: Start: 08-19-2024 End: 08-19-2024 Comprehensive metabolic panel Karthik wade MD Work Phone: Start: 08-19-2024 Drug test def 1-7 classes Karthik Guerin MD Work Phone: Start: 08-19-2024 Ecg routine ecg w/le ast 12 lds trcg only w/o i&r Karthik Guerin MD Work Phone: Start: 02-17-2024 End: 02-17-2024 Mri brain brain stem w/o contrast material Sukumar South MD Work Phone: Start: 02-17-2024 Comprehensive metabolic panel Lorena Rock MD Work Phone: Start: 02-16-2024 Comprehensive metabolic panel Lorena Rock MD Work Phone: Start: 02-15-2024 Comprehensive metabolic panel Lorena Rock MD Work Phone: Start: 02-14-2024 Creatine kinase total D jerry David MD Work Phone: Start: 02-14-2024 Alpha-fetoprotein serum Lorena Rock MD Work Phone: Start: 02-14-2024 Ecg routine ecg w/le ast 12 lds trcg only w/o i&r Sukumar South MD Work Phone: Start: 02-14-2024 Comprehensive metabolic panel Lorena Rock MD Work Phone: Start: 02-14-2024 Lipid panel Skuumar julian MD Work Phone: Start: 02-14-2024 Assay of folic acid serum Sukumar South MD Work Phone: Start: 02-14-2024 Lipid 1996 panel - S melany or Plasma Ric Foote MD Work Phone: Start: 02-13-2024 Us abdominal real ti me w/image limited Lorena Rock MD Work Phone: Start: 02-13-2024 Assay of troponin quantitative Ronnie Jose Avery DO Work Phone: Start: 02-13-2024 Radex spine cervical 2 or 3 views Sukumar South MD Work Phone: Start: 02-13-2024 Prothrombin time Ronnie Jose Avery DO Work Phone: Start: 02-13-2024 POCT GLUCOSE METER Chaparro Avery DO Work Phone: Start: 02-13-2024 End: 02-13-2024 Comprehensive metabolic panel Ronnie Genna Avery DO Work Phone: Start: 02-13-2024 Drug test def 1-7 classes Sukumar South MD Work Phone: Start: 02-13-2024 Ct head/brain w/o co ntrast material Ronnie Jose Avery DO Work Phone: Start: 02-13-2024 Radex shoulder compl ete minimum 2 views Ronnie Avery DO Work Phone: Start: 02-13-2024 Ecg routine ecg w/le ast 12 lds trcg only w/o i&r Ronnie Avery DO Work Phone: Start: 11-14-2023 Comprehensive metabolic panel Gifty Holguin MD Work Phone: Start: 11-13-2023 Comprehensive metabolic panel Gifty Holguin MD Work Phone: Start: 11-12-2023 TTE w or wo fol wcon,Doppler Gifty Holguin MD Work Phone: Start: 11-12-2023 Radiologic exam chest 2 views Gifty Holguin MD Work Phone: Start: 11-12-2023 Assay of troponin quantitative Yamini Mac Fluid DO Work Phone: Start: 11-12-2023 Blood gases any comb ination ph pco2 po2 co2 hco3 Mario Alberto Paris MD Work Phone: Start: 11-12-2023 Respiratory pathogen s DNA and RNA panel - Nasopharynx by GEO with non-probe detection Gifty Holguin MD Work Phone: Start: 11-12-2023 ETHYL GLUCURONIDE SC REEN, URINE Gifty Holguin MD Work Phone: Start: 11-12-2023 Iaad ia mult step me thod nos each organism Gifty Holguin MD Work Phone: Start: 11-12-2023 MEDICATION ASSISTED TREATMENT PANEL Gifty Holguin MD Work Phone: Start: 11-11-2023 Assay of troponin quantitative Yamini Mac Fluid DO Work Phone: Start: 11-11-2023 Drug test def 1-7 classes Gifty Holguin MD Work Phone: Start: 11-11-2023 Ecg routine ecg w/le ast 12 lds trcg only w/o i&r Yamini Mac Fluid DO Work Phone: Start: 11-11-2023 Radiologic exam ches t single view Yamini Mac Fluid DO Work Phone: Start: 11-11-2023 Basic metabolic pane l calcium total Yamini Mac Fluid DO Work Phone: Start: 11-11-2023 Ecg routine ecg w/le ast 12 lds i&r only Yamini Barraza DO Work Phone: Start: 01-01-2023 Basic metabolic pane l calcium total Pravin Taylor MD Work Phone: Start: 01-01-2023 Basic metabolic pane l calcium total Pravin Taylor MD Work Phone: Start: 01-01-2023 Comprehensive metabolic panel Gifty Holguin MD Work Phone: Start: 12-31-2022 Basic metabolic pane l calcium total Pravin Taylor MD Work Phone: Start: 12-31-2022 End: 12-31-2022 Basic metabolic panel calcium total Pravin Taylor MD Work Phone: Start: 12-31-2022 Ecg routine ecg w/le ast 12 lds trcg only w/o i&r Alice Smith MD Work Phone: Start: 12-31-2022 Ecg routine ecg w/le ast 12 lds trcg only w/o i&r Jamia Sierra MD Work Phone: Start: 12-30-2022 Blood count complete auto&auto difrntl wbc Jamia Sierra MD Work Phone: Start: 12-30-2022 End: 12-30-2022 Basic metabolic panel calcium total Aaliyah Mitchell [employer] MANAGER - [employer] Work Phone: Start: 12-30-2022 Ecg routine ecg w/le ast 12 lds trcg only w/o i&r Jamia Sierra MD Work Phone: Start: 12-30-2022 Assay of osmolality urine Jamia Sierra MD Work Phone: Start: 12-30-2022 Basic metabolic pane l calcium total Jamia Sierra MD Work Phone: Start: 12-30-2022 Radiologic exam ches t single view Alice Smith MD Work Phone: Start: 12-30-2022 Comprehensive metabolic panel Alice Smith MD Work Phone: Start: 12-30-2022 Comprehensive metabolic panel Alice Smith MD Work Phone: Start: 12-29-2022 Basic metabolic pane l calcium total Alice Smith MD Work Phone: Start: 12-29-2022 Drug tst prsmv instr mnt chem analyzers pr date Talia RUDOLPH Work Phone: Start: 12-29-2022 MEDICATION ASSISTED TREATMENT PANEL Jamia Sierra MD Work Phone: Start: 12-29-2022 End: 12-29-2022 Basic metabolic panel calcium total Alice Smith MD Work Phone: Start: 12-29-2022 Radiologic exam ches t single view Talia RUDOLPH Work Phone: Start: 12-29-2022 End: 12-29-2022 Radex shoulder complete minimum 2 views Talia RUDOLPH Work Phone: Start: 12-29-2022 Ct cervical spine w/ o contrast material Talia RUDOLPH Work Phone: Start: 12-29-2022 Ct head/brain w/o co ntrast material Talia RUDOLPH Work Phone: Start: 12-29-2022 Blood gases any comb ination ph pco2 po2 co2 hco3 Gilbert Balderas DO Work Phone: Start: 12-29-2022 Basic metabolic pane l calcium total Talia RUDOLPH Work Phone: Start: 12-29-2022 Drug test def 1-7 classes Talia RUDOLPH Work Phone: Start: 12-29-2022 Ecg routine ecg w/le ast 12 lds trcg only w/o i&r Gilbert Balderas DO Work Phone: Start: 12-29-2022 Smpl repair scalp/neck/ax/genit/trunk 2.6-7.5cm Talia RUDOLPH Work Phone: Start: 12-26-2022 Radex shoulder compl ete minimum 2 views Kalia Foote MD Work Phone: Start: 09-14-2022 Ecg routine ecg w/le ast 12 lds trcg only w/o i&r Jose M Wiggins MD Work Phone: Start: 09-14-2022 HOME O2 EVAL (DESATU RATION SCREEN) Pedro Subramanian MD Work Phone: Start: 09-13-2022 End: 09-14-2022 Basic metabolic panel calcium total Pedro Subramanian MD Work Phone: Start: 09-13-2022 ETHYL GLUCURONIDE SC REEN, URINE Pedro Subramanian MD Work Phone: Start: 09-13-2022 MEDICATION ASSISTED TREATMENT PANEL Pedro Subramanian MD Work Phone: Start: 09-13-2022 Iadna respiratry pro be & rev trnscr 08-26 target Leidy Carter MD Work Phone: Start: 09-12-2022 Blood gases any comb ination ph pco2 po2 co2 hco3 Tiffanie Gaffney DO Work Phone: Start: 09-12-2022 Basic metabolic pane l calcium total Tiffanie Gaffney DO Work Phone: Start: 09-12-2022 Ecg routine ecg w/le ast 12 lds trcg only w/o i&r Tiffanie Gaffney DO Work Phone: Start: 09-12-2022 Radiologic exam ches t single view Tiffanie Gaffney DO Work Phone: Start: 07-16-2022 Lipid 1996 panel - S melany or Plasma Jose M Wiggins MD Work Phone: Start: 04-13-2021 Radex foot complete minimum 3 views Nikia Colon MD Work Phone: Start: 07-20-2020 Echo tthrc r-t 2d w/ wom-mode compl spec&colr d Farnaz Davis Work Phone: Start: 07-02-2020 Radiologic exam chest 2 views Kasey P Lute Work Phone: Start: 07-01-2020 OPERATIVE REPORT 3m Sca nning Start: 07-01-2020 Ecg routine ecg w/le ast 12 lds w/i&r Kasey P Lute Work Phone: Start: 07-01-2020 ELECTROPHYSIOLOGY Ric Nge Foote Work Phone: Start: 07-01-2020 EP NURSE PROCEDURE REPORT 3m Scanning Start: 06-22-2020 Radiologic exam chest 2 views Ric Ngshilpa Foote Work Phone: Start: 05-25-2020 Catheterization and angiography procedure details panel Farnaz Davis Work Phone: Start: 05-25-2020 Ecg routine ecg w/le ast 12 lds w/i&r Ronnie Almaraz Work Phone: Start: 05-25-2020 CARDIOVERSION DEFIBRILLATION Ronnie Almaraz Work Phone: Start: 03-29-2020 Echo tthrc r-t 2d w/ wom-mode compl spec&colr d Farnaz Davis Work Phone: Start: 02-25-2020 OPERATIVE REPORT 3m Sca nning Start: 02-11-2020 Brncdilat rspse spmt ry pre&post-brncdilat admn Sukumari Gerard Work Phone: Start: 02-11-2020 Ct thorax w/o contra st material Rami Gerard Work Phone: Start: 11-09-2019 Dxa bone density scott dy 1/>sites appendiclr skel Ashley Liriano Work Phone: Start: 11-09-2019 Dxa bone density scott dy 1/> sites axial skel Ashley Liriano Work Phone: Start: 10-27-2019 End: 10-27-2019 Colonoscopy 3m Scanning Start: 09-03-2019 Radex clavicle complete Tavo Bowman MD Work Phone: Start: 08-05-2019 Radex clavicle complete Tavo Bowman Work Phone: Start: 07-21-2019 Radex shoulder compl ete minimum 2 views Jose Freitas Work Phone: Start: 07-21-2019 Radex spine lumbosac ral 2/3 views Jose Freitas Work Phone: Start: 07-21-2019 Radiologic exam chest 2 views Jose Freitas Work Phone: Plan of Treatment Date Care Activity Detail Author Start: 10-27-2029 Colon cancer screen colonoscopy Colon cancer screen colonoscopy [place], [place] Start: 10-27-2029 Screening for malignant neoplasm of colon [facility] Start: 07-16-2027 Lipid panel Lipid Panel [facility] Start: 06-10-2026 Creatinine measurement [facility] Start: 06-10-2026 Diabetes: Estimated Glomerular Filtration Rate for Kidney Health Diabetes: Estimated Glomerular Filtration Rate for Kidney Health [facility] Start: 06-10-2026 Potassium measurement [facility] Start: 06-10-2026 [facility] Start: 06-07-2026 Creatinine measurement Creatinine Level [facility] Start: 06-07-2026 Diabetes: Estimated Glomerular Filtration Rate for Kidney Health Diabetes: Estimated Glomerular Filtration Rate for Kidney Health [facility] Start: 06-07-2026 Potassium measurement Potassium Level [facility] Start: 06-04-2026 Echocardiography Echocardiogram [facility] Start: 06-04-2026 Hemoglobin A1c measurement [facility] Start: 06-04-2026 [facility] Start: 06-02-2026 Creatinine measurement [facility] Start: 06-02-2026 Diabetes: Estimated Glomerular Filtration Rate for Kidney Health Diabetes: Estimated Glomerular Filtration Rate for Kidney Health [facility] Start: 06-02-2026 Potassium measurement [facility] Start: 06-02-2026 [facility] Start: 05-30-2026 [facility] Start: 05-30-2026 Diabetes: Estimated Glomerular Filtration Rate for Kidney Health Diabetes: Estimated Glomerular Filtration Rate for Kidney Health [facility] Start: 05-30-2026 Potassium measurement Potassium Level [facility] Start: 05-26-2026 Echocardiography Echocardiogram [facility] Start: 05-26-2026 [facility] Start: 11-03-2025 Creatinine measurement Creatinine Level [facility] Start: 11-03-2025 Diabetes: Estimated Glomerular Filtration Rate for Kidney Health Diabetes: Estimated Glomerular Filtration Rate for Kidney Health [facility] Start: 11-03-2025 Potassium measurement Potassium Level [facility] Start: 09-16-2025 Creatinine measurement Creatinine Level [facility] Start: 09-16-2025 Diabetes: Estimated Glomerular Filtration Rate for Kidney Health Diabetes: Estimated Glomerular Filtration Rate for Kidney Health [facility] Start: 09-16-2025 Potassium measurement Potassium Level [facility] Start: 08-22-2025 Creatinine measurement Creatinine Level [facility] Start: 08-22-2025 Diabetes: Estimated Glomerular Filtration Rate for Kidney Health Diabetes: Estimated Glomerular Filtration Rate for Kidney Health [facility] Start: 08-22-2025 Potassium measurement Potassium Level [facility] Start: 08-19-2025 Creatinine measurement Creatinine Level [facility] Start: 08-19-2025 Diabetes: Estimated Glomerular Filtration Rate for Kidney Health Diabetes: Estimated Glomerular Filtration Rate for Kidney Health [facility] Start: 08-19-2025 Potassium measurement Potassium Level [facility] Start: 08-04-2025 End: 08-04-2025 Patient encounter procedure 08/04/2025 1:00 PM EST Appointment [facility] Pulm Function Test [address] [place] [address] [facility] Pulm Function Test Start: 07-30-2025 End: 06-18-2026 Comprehensive metabolic 1998 panel - Serum or Plasma Comprehensive metabolic panel Lab Routine Elevated LFTs Expected: 07/30/2025 (Approximate), Expires: 06/18/2026 [facility] Work Phone: Comment on above: Expected: 07/30/2025 (Approximate), Expi res: 06/18/2026 Start: 07-07-2025 End: 07-07-2025 Professional / ancillary services management 07/07/2025 10:00 AM EST Ancillary Procedure [facility] [place] [address] [place] [address] [facility] [place] Start: 07-06-2025 End: 07-06-2025 ambulatory [facility] - [place] Start: 07-06-2025 End: 07-06-2025 Patient encounter procedure 07/06/2025 9:00 AM EST Office Visit [facility] [place] [address] [place] [id number] Rachael Ngo MD [address] [place] [address] [facility] [place] Start: 07-02-2025 End: 07-02-2025 ambulatory [facility] Pulmonary and Sleep Medicine [facility] Start: 07-02-2025 End: 07-02-2025 Patient encounter procedure 07/02/2025 2:10 PM EDT Office Visit [facility] [address] [place] [address] Bonita Marcelo 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 MANAGER - [employer] [address] [facility] [address] [place] [address] [facility] [place] Start: 06-17-2025 End: 06-08-2026 CBC panel - Blood by Automated count [facility] Start: 06-17-2025 End: 06-08-2026 Comprehensive metabolic 1998 panel - Serum or Plasma [facility] Start: 06-10-2025 End: 06-10-2025 Patient encounter procedure 06/10/2025 2:30 PM EDT Office Visit [facility] [place] [address] [facility] [address] [place] [phone] Sarah Mireles, DISTRIBUTION CENTER MANAGER - [employer] [address] [facility] [address] [place], [place] [address] [facility] [place] Start: 06-08-2025 End: 06-08-2025 ambulatory [facility] Start: 06-03-2025 End: 06-03-2025 ambulatory [facility] [place] Start: 06-03-2025 End: 06-03-2025 Patient encounter procedure 06/03/2025 1:30 PM EDT [facility] [address] [facility] [address] [place] [phone] Jessenia Crystal, DISTRIBUTION CENTER MANAGER - [employer] [address] [facility] [place] [phone] [facility] Start: 06-01-2025 End: 06-01-2025 ambulatory 06/01/2025 9:30 AM EDT Infusion [facility] [address] [place] [phone] Rachael Ngo MD [address] [place] [address] [facility] Start: 05-03-2025 COVID-19 Vaccine ( season) COVID-19 Vaccine ( season) [facility] Start: 05-03-2025 Influenza vaccination Influenza Vaccine (#1) [facility] Start: 05-03-2025 [facility] Start: 04-07-2025 End: 04-07-2025 Professional / ancillary services management 04/07/2025 1:00 PM EDT Ancillary Procedure [facility] [address] [place] [phone] [facility] Start: 03-28-2025 Depression Monitoring Depression Monitoring [facility] Start: 03-28-2025 [facility] Start: 02-16-2025 Creatinine measurement Creatinine Level [facility] Start: 02-16-2025 Diabetes: Estimated Glomerular Filtration Rate for Kidney Health Diabetes: Estimated Glomerular Filtration Rate for Kidney Health [facility] Start: 02-16-2025 Potassium measurement Potassium Level [facility] Start: 02-13-2025 Hemoglobin A1c measurement [facility] Start: 02-13-2025 Lipid panel [facility] Start: 01-04-2025 End: 01-04-2025 Patient encounter procedure 01/04/2025 1:15 PM EDT Office Visit [facility] [address] [facility] [address] [place] [phone] Ronnie Almaraz MD [address] [place] [address] [facility] Start: 12-23-2024 End: 12-23-2024 Professional / ancillary services management 12/23/2024 4:00 PM EDT Ancillary Procedure [facility] [address] [facility] [address] [place] [phone] [facility] Start: 11-13-2024 Creatinine measurement Creatinine Level [facility] Start: 11-13-2024 Potassium measurement Potassium Level [facility] Start: 11-11-2024 Echocardiography Echocardiogram [facility] Start: 11-11-2024 End: 11-11-2024 Patient encounter procedure 11/11/2024 9:15 AM EDT Office Visit [facility] [address] [facility] [address] [place] [phone] Ric Foote MD [address] [place] [address] [facility] Start: 11-11-2024 End: 11-11-2024 Professional / ancillary services management 11/11/2024 8:30 AM EDT Ancillary Procedure [facility] [address] [facility] [address] [place] [phone] [facility] Start: 10-14-2024 End: 10-14-2025 Basic metabolic 1998 panel - Serum or Plasma Basic metabolic panel Lab Routine Chronic HFrEF (heart failure with reduced ejection fraction) (HCC) Expected: 10/14/2024 (Approximate), Expires: 10/14/2025 [facility] Work Phone: Comment on above: Expected: 10/14/2024 (Approximate), Expi res: 10/14/2025 Start: 10-14-2024 End: 10-14-2024 Patient encounter procedure 10/14/2024 1:30 PM EST Office Visit [facility] [address] [facility] [address] [place] [address] Jessenia Crystal, DISTRIBUTION CENTER MANAGER - [employer] [address] [facility] [place] [address] [facility] Start: 10-07-2024 End: 10-07-2024 Patient encounter procedure 10/07/2024 2:15 PM EST Office Visit [facility] [address] [place] [phone] Pedro Subramanian MD [address] [place] [address] [facility] Start: 09-30-2024 End: 09-30-2024 Professional / ancillary services management 09/30/2024 8:00 AM EST Ancillary Procedure [facility] [address] [facility] [address] [place] [address] [facility] Start: 09-21-2024 End: 09-21-2024 Patient encounter procedure 09/21/2024 2:30 PM EST Office Visit [facility] [address] [place] [phone] Olya Nunes MD [address] [place] [place] [address] [facility] Start: 09-16-2024 End: 09-16-2025 Basic metabolic 1998 panel - Serum or Plasma Basic metabolic panel Lab Routine Elevated serum creatinine Expected: 09/16/2024 (Approximate), Expires: 09/16/2025 [facility] Work Phone: Comment on above: Expected: 09/16/2024 (Approximate), Expi res: 09/16/2025 Start: 09-16-2024 End: 09-16-2024 Professional / ancillary services management 09/16/2024 1:30 PM EST Ancillary Procedure [facility] [address] [facility] [address] [place] [phone] [facility] Start: 09-02-2024 Depression Monitoring Depression Monitoring [facility] Start: 09-02-2024 Medicare Advantage Annual Wellness Visit Medicare Advantage Annual Wellness Visit [facility] Start: 09-02-2024 [facility] Start: 08-15-2024 DTaP/Tdap/Td vaccine (2 - Td or Tdap) DTaP/Tdap/Td vaccine (2 - Td or Tdap) [facility] Start: 08-15-2024 DTaP/Tdap/Td vaccine (2 - Td) DTaP/Tdap/Td vaccine (2 - Td) [facility] Work Phone: Start: 08-15-2024 DTaP/Tdap/Td Vaccines (2 - Td or Tdap) DTaP/Tdap/Td Vaccines (2 - Td or Tdap) [facility] Start: 08-15-2024 [facility] Start: 05-13-2024 End: 05-13-2024 Patient encounter procedure [facility] Start: 05-13-2024 End: 05-13-2024 Professional / ancillary services management 05/13/2024 9:30 AM EDT Ancillary Procedure [facility] [address] [facility] [address] [place] [phone] [facility] Start: 05-03-2024 COVID-19 Vaccine ( season) COVID-19 Vaccine ( season) [facility] Start: 05-03-2024 COVID-19 Vaccine ( season) COVID-19 Vaccine ( season) [facility] Start: 05-03-2024 Influenza vaccination [facility] Start: 04-15-2024 End: 04-15-2025 6 minute walk test 6 minute walk test PFT Routine Mucopurulent chronic bronchitis (HCC) Expected: 04/15/2024 (Approximate), Expires: 04/15/2025 [facility] Comment on above: Expected: 04/15/2024 (Approximate), Expi res: 04/15/2025 Start: 04-15-2024 End: 04-15-2025 [id number] Lab Routine Chronic bronchitis, unspecified chronic bronchitis type (HCC) Mucopurulent chronic bronchitis (HCC) Expected: 04/15/2024 (Approximate), Expires: 04/15/2025 [facility] Comment on above: Expected: 04/15/2024 (Approximate), Expi res: 04/15/2025 Start: 04-15-2024 End: 04-15-2025 Complete PFT pre and post bronchodilator with FENO Complete PFT pre and post bronchodilator with FENO PFT Routine Chronic bronchitis, unspecified chronic bronchitis type (HCC) Mucopurulent chronic bronchitis (HCC) Expected: 04/15/2024 (Approximate), Expires: 04/15/2025 [facility] Work Phone: Comment on above: Expected: 04/15/2024 (Approximate), Expi res: 04/15/2025 Start: 04-15-2024 End: 04-15-2024 Patient encounter procedure 04/15/2024 9:00 AM EDT Office Visit [facility] [address] [place], [place] [phone] Bryan Tracey MD [address] [place] [address] [facility] Start: 03-23-2024 End: 03-23-2024 Patient encounter procedure 03/23/2024 3:15 PM EDT Office Visit [facility] [address] [place] [phone] Pedro Subramanian MD [address] [place] [address] [facility] Start: 03-02-2024 End: 03-02-2024 Patient encounter procedure 03/02/2024 10:15 AM EDT Office Visit [facility] [address] [place] [phone] Jamia Sierra MD [address] [place] [address] [facility] Start: 02-24-2024 End: 02-16-2025 CBC panel - Blood by Automated count CBC Lab Routine Anemia in other chronic diseases classified elsewhere Expected: 02/24/2024 (Approximate), Expires: 02/16/2025 [facility] Work Phone: Comment on above: Expected: 02/24/2024 (Approximate), Expi res: 02/16/2025 Start: 02-24-2024 End: 02-16-2025 Comprehensive metabolic 1998 panel - Serum or Plasma Comprehensive metabolic panel Lab Routine HFrEF (heart failure with reduced ejection fraction) (HCC) Expected: 02/24/2024 (Approximate), Expires: 02/16/2025 [facility] Comment on above: Expected: 02/24/2024 (Approximate), Expi res: 02/16/2025 Start: 02-24-2024 End: 02-16-2025 Prothrombin time (PT) in Blood by Coagulation assay Protime-INR Lab Routine Permanent atrial fibrillation (HCC) Expected: 02/24/2024 (Approximate), Expires: 02/16/2025 [facility] Comment on above: Expected: 02/24/2024 (Approximate), Expi res: 02/16/2025 Start: 01-15-2024 End: 01-15-2024 Professional / ancillary services management 01/15/2024 1:30 PM EDT Ancillary Procedure [facility] [address] [facility] [address] [place] [address] [facility] Start: 01-02-2024 Creatinine measurement Creatinine Level [facility] Start: 01-02-2024 Potassium measurement Potassium Level [facility] Start: 11-22-2023 End: 11-22-2023 Patient encounter procedure 11/22/2023 3:00 PM EDT Office Visit [facility] [address] [place] [address] Jamia Sierra MD [address] [place] [address] [facility] Start: 10-02-2023 End: 10-02-2023 Professional / ancillary services management 10/02/2023 7:00 AM EST Ancillary Procedure [facility] [address] [phone] [facility] Start: 09-14-2023 Creatinine measurement Creatinine Level [facility] Start: 09-14-2023 Potassium measurement Potassium Level [facility] Start: 09-12-2023 Creatinine measurement Creatinine Level [facility] Start: 09-12-2023 Potassium measurement Potassium Level [facility] Start: 07-19-2023 Creatinine measurement Creatinine Level [facility] Start: 07-19-2023 Echocardiography Echocardiogram [facility] Start: 07-19-2023 Potassium measurement Potassium Level [facility] Start: 07-17-2023 Diabetes mellitus screening Diabetes Screening [facility] Start: 06-19-2023 End: 06-19-2023 Professional / ancillary services management 06/19/2023 7:00 AM EDT Ancillary Procedure [facility] [address] [facility] [address] [place] [address] [facility] Start: 05-03-2023 COVID-19 Vaccine ( season) COVID-19 Vaccine (2022-24 season) [facility] Start: 05-03-2023 Influenza vaccination Influenza Vaccine (#1) [facility] Start: 03-06-2023 End: 03-06-2023 Professional / ancillary services management [facility] Start: 02-10-2023 Lipid panel Lipid screen [facility] Start: 02-10-2023 Lipid screen Lipid screen [place], [place] Start: 02-07-2023 End: 02-07-2023 Patient encounter procedure 02/07/2023 Office Visit Orthopedic Surgery Gilbert Mckinley PA-C [address] [facility] [address] [place] [address] [facility] Start: 02-05-2023 End: 02-05-2023 Patient encounter procedure 02/05/2023 Office Visit Family [facility] Jamia Sierra MD [address] [place] [address] [facility] Start: 01-22-2023 Depression Monitoring Depression Monitoring [facility] Start: 01-22-2023 Depresssion Monitoring Depresssion Monitoring [facility] Start: 01-11-2023 End: 01-11-2023 Professional / ancillary services management 01/11/2023 Ancillary Procedure Cardiology [facility] Start: 01-08-2023 End: 01-08-2023 Patient encounter procedure 01/08/2023 Office Visit Orthopedic Surgery Allan Duran MD [address] [facility] [address] [place] [address] [facility] Start: 01-07-2023 End: 01-08-2024 CBC W Auto Differential panel - Blood CBC auto differential Lab Routine Anemia in other chronic diseases classified elsewhere Expected: 01/07/2023 (Approximate), Expires: 01/08/2024 [facility] Comment on above: Expected: 01/07/2023 (Approximate), Expi res: 01/08/2024 Start: 01-07-2023 End: 01-08-2024 Comprehensive metabolic 1998 panel - Serum or Plasma Comprehensive metabolic panel Lab Routine Chronic hyponatremia Expected: 01/07/2023 (Approximate), Expires: 01/08/2024 [facility] [employer] Work Phone: Comment on above: Expected: 01/07/2023 (Approximate), Expi res: 01/08/2024 Start: 01-07-2023 End: 01-08-2024 Ferritin [Mass/volume] in Serum or Plasma Ferritin Lab Routine Anemia in other chronic diseases classified elsewhere Expected: 01/07/2023 (Approximate), Expires: 01/08/2024 [facility] Comment on above: Expected: 01/07/2023 (Approximate), Expi res: 01/08/2024 Start: 01-07-2023 End: 01-08-2024 Iron and Iron binding capacity panel - Serum or Plasma Iron and TIBC Lab Routine Anemia in other chronic diseases classified elsewhere Expected: 01/07/2023 (Approximate), Expires: 01/08/2024 [facility] Comment on above: Expected: 01/07/2023 (Approximate), Expi res: 01/08/2024 Start: 01-07-2023 End: 01-07-2023 Patient encounter procedure 01/07/2023 Office Visit Family Medicine Jamia Sierra MD [address] [place] [address] [facility] Start: 01-02-2023 End: 01-02-2024 CBC panel - Blood by Automated count CBC Lab Routine Low hemoglobin Expected: 01/02/2023 (Approximate), Expires: 01/02/2024 [facility] [employer] Work Phone: Comment on above: Expected: 01/02/2023 (Approximate), Expi res: 01/02/2024 Start: 01-02-2023 End: 01-02-2024 Comprehensive metabolic 1998 panel - Serum or Plasma Comprehensive metabolic panel Lab Routine Hyponatremia Expected: 01/02/2023 (Approximate), Expires: 01/02/2024 [facility] Comment on above: Expected: 01/02/2023 (Approximate), Expi res: 01/02/2024 Start: 11-28-2022 End: 11-28-2022 Professional / ancillary services management 11/28/2022 Ancillary Procedure Cardiology [facility] Start: 10-27-2022 Screening for malignant neoplasm of colon [facility] Start: 09-19-2022 End: 09-19-2022 Patient encounter procedure 09/19/2022 Office Visit Cardiology Ronnie Almaraz MD [address] [facility] [address] [place] [address] [facility] Start: 09-15-2022 Diabetes screen Diabetes screen [facility] Start: 09-14-2022 End: 09-14-2023 Basic metabolic 1998 panel - Serum or Plasma Basic metabolic panel Lab Routine Chronic hyponatremia Expected: 09/14/2022 (Approximate), Expires: 09/14/2023 [facility] Work Phone: Comment on above: Expected: 09/14/2022 (Approximate), Expi res: 09/14/2023 Start: 09-06-2022 End: 09-06-2022 Patient encounter procedure 09/06/2022 Office Visit Family Medicine Jamia Sierra MD [address] [place] [address] [facility] Start: 09-05-2022 Depression Monitoring Depression Monitoring [facility] Start: 08-25-2022 Creatinine measurement Creatinine monitoring [facility] Start: 08-25-2022 Potassium monitoring Potassium monitoring [facility] Start: 12-12-2021 End: 12-12-2021 Nursing evaluation of patient and report 12/12/2021 Nurse Only Cardiology Ani Fowler, N[facility] Start: 10-13-2021 End: 10-13-2021 Patient encounter procedure 10/13/2021 Office Visit Family Medicine Carmine Andrade MD [address] [place] [address] [facility] Start: 08-29-2021 Annual Wellness Visit (AWV) Annual Wellness Visit (AWV) [facility] Start: 06-22-2021 Creatinine measurement Creatinine monitoring [facility] [place] Start: 06-22-2021 Potassium monitoring Potassium monitoring [facility] [place] [place] Start: 05-31-2021 End: 05-31-2021 Patient encounter procedure 05/31/2021 Office Visit Family Medicine Carmine Andrade MD [address] [place] [address] [phone] [facility] Start: 2021 Pneumococcal 0-64 years Vaccine (2 of 2 - PPSV23) Pneumococcal 0-64 years Vaccine (2 of 2 - PPSV23) [facility] Work Phone: Start: 2021 Pneumococcal 65+ years Vaccine (1 of 1 - PPSV23) Pneumococcal 65+ years Vaccine (1 of 1 - PPSV23) [facility] Start: 05-18-2021 Creatinine measurement Creatinine monitoring [facility] [place] Start: 05-18-2021 Potassium monitoring Potassium monitoring [facility] [place] [place] Start: 05-18-2021 End: 05-18-2021 Nursing evaluation of patient and report 05/18/2021 Nurse Only Cardiology Ani Fowler, RN [facility] Start: 05-03-2021 Influenza vaccination Flu vaccine (#1) [facility] Start: 04-19-2021 Creatinine measurement Creatinine monitoring [facility] [place] Start: 04-19-2021 Potassium monitoring Potassium monitoring [facility] [place] Start: 04-19-2021 End: 04-19-2021 Patient encounter procedure 04/19/2021 Office Visit Family Medicine Nikia Colon MD [address] [place] [address] [phone] [facility] Start: 03-29-2021 End: 03-29-2021 Patient encounter procedure 03/29/2021 Office Visit Family Medicine Carmine Andrade MD [address] [place] [address] [phone] [facility] Start: 03-08-2021 Creatinine measurement Creatinine monitoring [facility] [place] Start: 03-08-2021 Potassium monitoring Pot[place] monitoring [facility] [place] Start: 02-10-2021 Screening for malignant neoplasm of lung Low dose CT lung screening [facility] Work Phone: Start: 02-02-2021 End: 02-02-2021 Nurse Only 02/02/2021 Nurse Only Cardiology Ani Fowler RN [facility] Start: 12-28-2020 End: 12-28-2020 Office Visit 12/28/2020 Office Visit Family Medicine Dawn Earl MD [address] [place] [address] [phone] [facility] Start: 12-22-2020 Creatinine measurement Creatinine monitoring [facility] [place] Start: 12-22-2020 Potassium monitoring Pot[place] monitoring [facility] [place] Start: 11-08-2020 Screening for osteoporosis Bone Density Scan [facility] Start: 10-05-2020 Creatinine monitoring Creatinine monitoring [facility] [place] [facility] [place] Start: 10-05-2020 Potassium monitoring Potassium monitoring [facility] [place] Start: 09-21-2020 Colon Cancer Screen FIT/FOBT Colon Cancer Screen FIT/FOBT [facility] Work Phone: Start: 09-21-2020 Screening [facility] malignant [facility] Start: 09-21-2020 End: 09-21-2020 Office Visit 09/21/2020 Office Visit Cardiology Ric Foote MD [address] [address] [phone] [facility] Start: 09-19-[address] lung screening Low dose CT lung screening [facility] Work Phone: Start: 09-19-2020 Screening for malignant neoplasm of lung Low dose CT lung screening [facility] [place] Start: 09-15-2020 Creatinine monitoring Creatinine monitoring [facility] Work Phone: Start: 09-15-2020 Potassium monitoring Potassium monitoring [facility] Work Phone: Start: 07-21-2020 End: 07-21-2020 Nurse Only 07/21/2020 Nurse Only Cardiology Ani Fowler, NGHIA [facility] Start: 07-20-2020 End: 07-20-2020 Appointment 07/20/2020 Appointment Echocardiography [facility] Start: 07-01-2020 End: 07-01-2020 Appointment 07/01/2020 Appointment Stress Lab Ric Foote MD [address] [place] [address] [phone] [facility]A Card Start: 06-15-2020 End: 06-15-2020 Office Visit 06/15/2020 Office Visit Cardiology Ric Foote MD [address] [place] [address] [phone] [facility] Start: 05-18-2020 End: 05-18-2020 Office Visit 05/18/2020 Office Visit Cardiology Nitesh Ley MD [address] [place] [address] [phone] [facility] Start: 05-03-2020 Influenza vaccination Flu vaccine (#1) [place] Start: 03-30-2020 End: 03-30-2020 Office Visit 03/30/2020 Office Visit Cardiology Jessenia Crystal, DISTRIBUTION CENTER MANAGER - TUBE TURNER [address] [facility] [address] [place] [phone] [facility] Start: 03-08-2020 End: 03-08-2020 Office Visit 03/08/2020 Office Visit Cardiology Farnaz Davis, DISTRIBUTION CENTER MANAGER - TUBE TURNER [address] [facility], [address] [place] [address] [facility] Start: 01-01-2020 End: 01-01-2020 Office Visit 01/01/2020 Office Visit Pulmonology Whitley Coffey, 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 [place] [address] [phone] [facility] Start: 12-24-2019 End: 12-24-[address] Scan Start: 12-01-2019 End: 12-01-2019 Office Visit 12/01/2019 Office Visit Orthopedic Surgery Ashley Liriano Araseli, DISTRIBUTION CENTER MANAGER - SHEARING MACHINE FEEDER [address] [facility] [address] [place] [address] [phone] [facility] [place] Start: 11-04-2019 End: 11-04-2019 Office Visit 11/04/2019 Office Visit Orthopedic Surgery Ashley Liriano Araseli, DISTRIBUTION CENTER MANAGER - SHEARING MACHINE FEEDER [address] [facility] [address] [place] [address] [phone] [facility] [place] Start: 10-27-2019 Hospital Encounter 10/27/2019 Hospital Encounter IP Unit Maria A Harrell MD [address] [facility] [address] [place] [address] [phone] [facility] Start: 10-26-2019 End: 10-26-2019 Office Visit 10/26/2019 Office Visit Family Medicine Luly Lagos MD [address] [place] [address] [phone] [facility] Start: 09-19-2019 End: 09-19-2019 Patient encounter procedure 09/19/2019 Appointment Radiology Eunice Pritchett MD [address] [place] [address] [phone] Scan Start: 09-15-2019 End: 09-15-2019 Patient encounter procedure 09/15/2019 Office Visit Family Medicine Luly Lagos MD [address] [place] [address] [phone] [facility] Start: 09-03-2019 End: 09-03-2019 Office Visit 09/03/2019 Office Visit Sports Medicine [facility] [place] Start: 05-03-2019 Influenza vaccination Flu vaccine (#1) [place] Start: 02-10-2019 Creatinine monitoring Creatinine monitoring [place] Start: 02-10-2019 Potassium monitoring Pot[place] Start: 01-31-[address] lung screening Low dose CT lung screening [place] Start: 01-15-2017 Pneumococcal Vaccine: 65+ Years (2 - PCV) Pneumococcal Vaccine: 65+ Years (2 - PCV) [facility] Start: 2016 RSV Immunization aged 60 or older (1 - 1-dose 60+ series) RSV Immunization aged 60 or older (1 - 1-dose 60+ series) [facility] Start: 2016 RSV Immunization for Adults (1 - Risk 60-74 years 1-dose series) RSV Immunization for Adults (1 - Risk 60-74 years 1-dose series) [facility] Start: 2016 [facility] Start: 2006 Colon cancer screen colonoscopy Colon cancer screen colonoscopy [place] Start: 2006 Shingles Vaccine (1 of 2) Shingles Vaccine (1 of 2) [facility] Start: 2006 Zoster Vaccines (1 of 2) Zoster Vaccines (1 of 2) [facility] Start: 2006 [facility] Start: 1996 Diabetes screen Diabetes screen [place] Start: 1975 Hepatitis A Vaccines (1 of 2 - Risk 2-dose series) Hepatitis A Vaccines (1 of 2 - Risk 2-dose series) [facility] Start: 1974 Diabetes: Urine Albumin-Creatinine Ratio for Kidney Health Diabetes: Urine Albumin-Creatinine Ratio for Kidney Health [facility] Start: 1974 [facility] Start: 1972 COVID-19 Vaccine (1) COVID-19 Vaccine (1) [facility] Work Phone: Start: 1971 HIV screen HIV screen [place] Start: 1968 COVID-19 Vaccine (1) COVID-19 Vaccine (1) [facility] Work Phone: Start: 1967 DTaP/Tdap/Td vaccine (1 - Tdap) DTaP/Tdap/Td vaccine (1 - Tdap) [place] Start: 1966 Diabetic foot examination [facility] Start: 1966 Glaucoma screening [facility] Start: 1966 Preventive dental service [facility] Start: 1961 COVID-19 Vaccine (1) COVID-19 Vaccine (1) [facility] Start: 1957 Hepatitis A Vaccines (1 of 2 - Risk 2-dose series) Hepatitis A Vaccines (1 of 2 - Risk 2-dose series) [facility] Start: 1956 COVID-19 Vaccine (#1) COVID-19 Vaccine (#1) [facility] Start: 1956 Abdominal aortic aneurysm screening AAA screen [facility] Start: 1956 Hepatitis B Vaccines (1 of 3 - 3-dose series) Hepatitis B Vaccines (1 of 3 - 3-dose series) [facility] Start: 1956 Hepatitis C screen Hepatitis C screen [place] Start: 1956 Medicare Annual Wellness (AWV) Medicare Annual Wellness (AWV) [facility] Start: 1956 Screening for malignant neoplasm of colon [facility] End: 02-25-2020 AFB Stain AFB Stain Microbiology Routine Once for 1 Occurrences starting 02/25/2020 until 02/25/2020 [place] Comment on above: Once for 1 Occurrences starting 02/25/20 20 until 02/25/2020 AFB Stain AFB Stain Microb iology Routine 02/25/2020 9:30 AM EDT [place] End: 08-20-2024 AFP Tumor Marker [facility] Work Phone: Comment on above: Once (Lab) for 1 Occurrences starting until 08/20/2024 Bacteria identified in Blood by Culture [facility] Bacteria identified in Lower respiratory specimen by Aerobe culture Respiratory culture and Stain Microbiology Routine 08/22/2024 10:54 AM EST [facility] End: 11-12-2023 Blood gases, venous measurement Blood gas, venous Lab Routine Once (Lab) for 1 Occurrences starting 11/12/2023 until 11/12/2023 [facility] [employer] Work Phone: Comment on above: Once (Lab) for 1 Occurrences starting until 11/12/2023 End: 07-01-2020 Catheterization and angiography procedure details panel Diagnostic Cardiac Hand Dry Cleaner Procedure Cardiac Cath Routine One Time for 1 Occurrences starting 07/01/2020 until 07/01/2020 [facility] [place] Comment on above: One Time for 1 Occurrences starting 06/04 until 07/01/2020 Complete PFT study [facility] Continuous pulse oximetry Pulse oximetry, continuous Respiratory Care Routine Every 4hr until discontinued starting 05/25/2020 [facility] Comment on above: Every 4hr until discontinued starting End: 09-19-2019 CT lung screen [Initial/Annual] CT lung screen [Initial/Annual] Imaging Routine Encounter for screening for lung cancer 1 Occurrences starting 09/19/2019 until 09/19/2019 [facility] Work Phone: Comment on above: 1 Occurrences starting 09/19/2019 until 09/19/2019 CT lung screen [Initial/Annual] CT lung screen [Initial/Annual] Imaging Routine Encounter for screening for lung cancer 09/19/2019 3:05 PM EST [facility] Work Phone: End: 02-25-2020 Culture with Smear, Acid Fast Bacillius Culture with Smear, Acid Fast Bacillius Microbiology Routine Once for 1 Occurrences starting 02/25/2020 until 02/25/2020 [facility] [place] Comment on above: Once for 1 Occurrences starting 02/25/20 20 until 02/25/2020 Culture with Smear, Acid Fast Bacillius Culture with Smear, Acid Fast Bacillius Microbiology Routine 02/25/2020 9:30 AM [facility] [place] End: 02-25-2020 Culture, Fungus Culture, Fungus Microbiology Routine Once for 1 Occurrences starting 02/25/2020 until 02/25/2020 [facility] [place] Comment on above: Once for 1 Occurrences starting 02/25/20 20 until 02/25/2020 Culture, Fungus Culture, Fungus Microbiology [facility]ine [facility] [place] [facility]: 02-25-2020 Culture, Respiratory Culture, Respiratory Microbiology Routine Once for 1 Occurrences starting 02/25/2020 until 02/25/2020 [facility] [place] Comment on above: Once for 1 Occurrences starting 02/25/20 20 until 02/25/2020 Culture, Respiratory Culture, Re spiratory Microbiology Routine 02/25/2020 9:30 AM EDT [facility] [place] ECG 12 lead ECG 12 lead CV E CG Routine 09/14/2022 10:08 AM EST [facility] continuous monitoring [facility] Work Phone: EKG 12 Lead [facility] End: 07-01-2020 ELECTROPHYSIOLOGY DEVICE ELECTROPHYSIOLOGY DEVICE Echocardiography Routine One Time for 1 Occurrences starting 07/01/2020 until 07/01/2020 [place] Comment on above: One Time for 1 Occurrences starting 06/04 until 07/01/2020 End: 05-20-2025 Extra Tubes [facility] Work Phone: End: 02-25-2020 Fungal stain Fungal stain Microbiology Routine Once for 1 Occurrences starting 02/25/2020 until 02/25/2020 [place] Comment on above: Once for 1 Occurrences starting 02/25/20 until 02/25/2020 Fungal stain Fungal stain Chandana robiology Routine 02/25/2020 9:30 AM EDT [place] End: 06-07-2025 Hemoglobin.gastrointestin al.lower [Presence] in Stool by Immunoassay --1st specimen [facility] Work Phone: End: 02-25-2020 HHN Treatment HHN Treatment Respiratory Care Routine Once for 1 Occurrences starting 02/25/2020 until 02/25/2020 [place] Comment on above: Once for 1 Occurrences starting 02/25/20 until 02/25/2020 End: 05-20-2025 Light Blue Top [facility] MDI Treatment MDI Treatment Re spiratory Care Routine (respiratory use only) until discontinued starting 07/01/2020 [place] Comment on above: (respiratory use only) until d iscontinued starting 07/01/2020 End: 02-13-2024 MEDICATION ASSISTED TREATMENT PANEL MEDICATION ASSISTED TREATMENT PANEL Lab Routine Once (Lab) for 1 Occurrences starting 02/13/2024 until 02/13/2024 [facility] Work Phone: Comment on above: Once (Lab) for 1 Occurrences starting until 02/13/2024 End: 02-25-2020 Microscopic observation Gram stain Nom (Unsp spec) Gram Stain Microbiology Routine Once for 1 Occurrences starting 02/25/2020 until 02/25/2020 [place] Comment on above: Once for 1 Occurrences starting 02/25/20 20 until 02/25/2020 Microscopic observat ion Gram stain Nom (Unsp spec) Gram Stain Microbiology Routine 02/25/2020 9:30 AM EDT [place] Oxygen therapy [[facility]ini [facility]] [place] Comment on above: Daily until discontinued starting 2019 Daily until disconti nued starting 07/01/2020 End: 02-25-2020 Pneumonia Panel, Molecular Pneumonia Panel, Molecular Microbiology Routine Once for 1 Occurrences starting 02/25/2020 until 02/25/2020 [place] Comment on above: Once for 1 Occurrences starting 02/25/20 until 02/25/2020 Pneumonia Panel, Molecular Pneumonia Panel, Molecular Microbiology Routine 02/25/2020 9:30 AM EDT [place] End: 11-12-2023 Respiratory pathogens DNA and RNA panel - Lower respiratory specimen by GEO with non-probe detection Pneumonia PCR Panel Microbiology Routine Once (Lab) for 1 Occurrences starting 11/12/2023 until 11/12/2023 [facility] Work Phone: Comment on above: Once (Lab) for 1 Occurrences starting until 11/12/2023 End: 10-27-2019 Surgical Pathology Surgical Pathology Lab Routine Once for 1 Occurrences starting 10/27/2019 until 10/27/2019 [place] Comment on above: Once for 1 Occurrences starting 10/27/19 until 10/27/2019 Surgical Pathology Surgical Path ology Lab Routine 10/27/2019 9:50 AM [place] End: 09-27-2021 VL AAA SCREENING [facility] Work Phone: Comment on above: 1 Occurrences starting 09/27/2021 until 09/27/2021 End: 07-21-2019 XR CLAVICLE LEFT XR CLAVICLE LEFT Imaging Routine Once for 1 Occurrences starting 07/21/2019 until 07/21/2019 [place] Comment on above: Once for 1 Occurrences starting 07/21/20 19 until 07/21/2019 XR CLAVICLE LEFT XR CLAVICLE LEF T Imaging STAT 07/21/2019 6:08 AM [place] End: 11-21-2020 XR LUMBAR SPINE (2-3 VIEWS) XR LUMBAR SPINE (2-3 VIEWS) Imaging Routine Chronic bilateral low back pain without sciatica 1 Occurrences starting 11/21/2020 until 11/21/2020 [facility] Work Phone: Comment on above: 1 Occurrences starting 11/21/2020 until 11/21/2020 XR LUMBAR SPINE (2-3 VIEWS) XR LUMBAR SPINE (2-3 VIEWS) Imaging Routine Chronic bilateral low back pain without sciatica 11/21/2020 2:20 PM EDT [facility] Work Phone: Immunizations Immunization Date Immunization Notes Care Provider Fa [facility] 09-28-2024 Seasonal trivalent influenza vaccine, adjuvanted, preservative free Olya Nunes MD Work Phone: [facility] 09-28-2024 influenza virus vacc ine, unspecified formulation Jamia Sierra MD Work Phone: [facility] 08-20-2024 influenza vaccine A& B surf ant adjuvanted (Fluad) HIGH-DOSE injection 0.5 mL Karthik Guerin MD Work Phone: [facility] 01-07-2023 Pneumococcal Conjuga te PCV20, Pf (Prevnar 20) Jamia Sierra MD Work Phone: [facility] 07-25-2022 influenza, high dose seasonal, preservative-free Jose M Wiggins MD Work Phone: [facility] 07-25-2022 influenza virus vacc ine, unspecified formulation Gifty Holguin MD Work Phone: [facility] 10-13-2021 influenza, injectabl e, quadrivalent, preservative free Jose M Wiggins MD Work Phone: [facility] 10-13-2021 Prince Sherronkol a DO Work Phone: [facility] 11-21-2020 influenza, injectabl e, quadrivalent, preservative free Jose M Wiggins [facility] 11-21-2020 Prince Mudrakol a DO Work Phone: [facility] 09-15-2019 influenza, injectabl e, quadrivalent, preservative free Eunice Harrisak [facility] Work Phone: 09-15-2019 zoster recombinant adjuvanted vaccine (SHINGRIX) 50 MCG/0.5ML SUSR injection Eunice Pritchett MD Work Phone: [facility] Work Phone: 09-15-2019 Prince mac DO Work Phone: [facility] 01-16-2016 pneumococcal polysaccharide vaccine, 23 valent [place], [place] 08-15-2014 influenza virus vacc ine, unspecified formulation Eunice Shreyas [facility] 08-15-2014 tetanus toxoid, redu christophe diphtheria toxoid, and acellular pertussis vaccine, adsorbed Eunice Pritchett [facility] Work Phone: Payers Date Payer Category Payer Self-pay 2024 Medicare O [id number] 2024 Medicare [id number] 2024 Ander Stephens Managed [facility] - [facility] [id number] 2022 Unknown [id number] 2021 Unknown BCBS BC[place] - [place] P [address] [id number] 2021-Present [phone] [address] [place] [address] [id number] 2021 Medicare [id number] 2021 Medicare [id number] 2019 Unknown MEDICAL MUTUAL M EDICAL MUTUAL [address] xxxxxxxxxxxx 2019-Present [phone] [address] [place] [id number] xxxxxxxxxxxx [id number] 2019 Unknown MEDICAL MUTUAL M EDICAL MUTUAL [address] [id number] 2019-Present [phone] [address] [place] [address] [id number] 2019 Unknown MEDICAL MUTUAL M EDICAL MUTUAL [address] [id number] 2019-Present [phone] [address] [place] [id number] [id number] 1956 Unknown [id number] Unknown [id number] Unknown [id number] Unknown [id number] Unknown [id number] Social History Date Type Detail Facility Start: 1972 End: 06-09-2025 Tobacco smoking status ALIS Current every day smoker [facility] [place] Start: 1972 End: 09-26-2019 History of tobacco use Cigarette [place] Start: 08-05-2019 End: 06-04-2025 Cigarettes smoked current (pack per day) - Reported [facility] Start: 08-05-2019 End: 06-18-2025 Alcohol intake Current drinker of alcohol (finding) [place] Start: 07-21-2019 Alcohol Comment beer 4/daily [place] Start: 1955 Sex Assigned At Not on file [place] Start: 09-15-2019 End: 01-07-2023 History SDOH Financial 5 [facility] Work Phone: Start: 09-15-2019 End: 01-07-2023 History SDOH Food Worry 1 [facility] Work Phone: Start: 10-02-2019 Tobacco Comment 10/02/2019 - restarted 2018 1-2 cigs a week [facility] Work Phone: Start: 10-27-2019 End: 09-10-2024 Tobacco smoking status [facility] Former smoker [facility] Start: 1972 End: 09-26-2019 History of tobacco use [place] Start: 02-25-2020 Alcohol Comment 6 pack beer daily [place] Start: 02-25-2020 End: 06-09-2025 Tobacco use and exposure Never used [place] Start: 03-30-2020 Alcohol Comment 3 24oz cans [facility] Start: 07-31-2022 End: 01-08-2023 Exposure to SARS-CoV-2 (event) Not sure [place] Start: 10-02-2019 Tobacco Comment 10/02/2019 - restarted 2017 1-2 cigs a week [facility] Work Phone: Start: 02-27-2021 End: 12-29-2022 History SDOH Financial 4 [facility] Work Phone: Start: 02-27-2021 End: 01-07-2023 History SDOH Transport Med 2 [facility] Work Phone: Start: 09-05-2021 Tobacco Comment 6/day [facility] Work Phone: Start: 09-19-2022 Tobacco Comment 8 cig daily [facility] Start: 09-19-2022 Alcohol Comment once beer daily [facility] Start: 12-26-2022 History SDOH Alcohol Std Drinks 0 [facility] Start: 12-29-2022 End: 06-04-2025 Humiliation, Afraid, Rape, and Kick questionnaire [HARK] [facility] Within the last year , have you been afraid of your partner or ex-partner? No [facility] How often to you hav e a drink containing alcohol? 4 or more times a week [facility] How many standard dr inks containing alcohol do you have on a typical day? 7 to 9 [facility] How often do you hav e 6 or more drinks on 1 occasion? Daily or almost daily [facility] How hard is it for y ou to pay for the very basics like food, housing, medical care, and heating Not hard at all [facility] (I/We) worried wheth er (my/our) food would run out before (I/we) got money to buy more. Never true [facility] How many standard dr inks containing alcohol do you have on a typical day? 1 or 2 [facility] Start: 04-02-2022 Sex Male (finding) [facility] How many standard dr inks containing alcohol do you have on a typical day? 5 or 6 [facility] Are you now , , , , never or living with a partner? [facility] How many standard dr inks containing alcohol do you have on a typical day? 3 or 4 [facility] How hard is it for y ou to pay for the very basics like food, housing, medical care, and heating Not very hard [facility] Do you feel stress - tense, restless, nervous, or anxious, or unable to sleep at night because your mind is troubled all the time - these days [OSQ] Not at all [facility] Start: 09-11-2024 End: 10-14-2024 Alcoholic beverage intake Ex-drinker (finding) [facility] Are you now , , , , never or living with a partner? [facility] How many standard dr inks containing alcohol do you have on a typical day? 10 or more [facility] How often do you nee d to have someone help you when you read instructions, pamphlets, or other written material from your doctor or pharmacy [SILS] Never [facility] Start: 1955 Sex assigned at Male [facility] Start: 05-27-2025 Gender identity Identifies as male gender (finding) [facility] Start: 05-27-2025 Sexual orientation Heterosexual (finding) [facility] How often do you nee d to have someone help you when you read instructions, pamphlets, or other written material from your doctor or pharmacy [SILS] Always [facility] Medical Equipment Procedure Code Equipment Code Equipment Origin al Text Equipment Identifier Dates [id number] Start: 06-30-2020 [id number] Start: 06-30-2020 [id number] Start: 06-30-2020 [id number] Start: 06-30-2020 [id number] Start: 05-25-2025 [id number] Start: 05-25-2025 [id number] Start: 05-25-2025 [id number] Start: 05-25-2025 [id number] Start: 05-25-2025 [id number] Start: 06-10-2025 Goals Date Patient Goal Desired Activity /State Personal health goal Functional Status Date Assessment Result Facility 09-27-2024 Patient Health Questionnaire 2 item (PHQ- 2) [Reported] [facility] 01-01-2023 Are you deaf, or do you have serious difficulty hearing No [facility] 01-01-2023 Are you blind, or do you have serious difficulty seeing, even when wearing glasses No [facility] 01-01-2023 Do you have serious difficulty walking or climbing stairs No [facility] 01-01-2023 Do you have difficulty dressing or bathin g No [facility] 01-01-2023 Because of a physica l, mental, or emotional condition, do you have difficulty doing errands alone such as visiting a physician's office or shopping No [facility] Mental Status Date Assessment Result Facility 01-01-2023 Because of a physica l, mental, or emotional condition, do you have serious difficulty concentrating, remembering, or making decisions No [facility] Clinical Notes 08-25-2021 to 06-21-2025 Telephone Encounter - Brigitte Valdes LPN - 06/21/2025 11:44 AM EDTTelephone Encounter - Brigitte Valdes LPN - 06/21/2025 11:44 AM EDILMATSarah Mireles APRN - [facility] - 06/18/2025 2:30 PM EDTAttachments Note Date & Type Note Facility 06-21-2025 Telephone encounter Note Received labs this am. Vanc trough is 20.4. creatinine is 0.88. Vanc increased to 1.5g every 24 hours on 06/18/25. Any new orders? Update Spoke to Dr. Arndt who is covering for Dr. Ngo. Per Dr. Arndt, ok to keep same dose of vanc. Patient is at goal. Called [facility] and spoke to Claude and made her aware no changes to vanc dose. Claude verbalized understanding. [facility] 06-21-2025 Miscellaneous Notes Received labs this am. Vanc trough is 20.4. creatinine is 0.88. Vanc increased to 1.5g every 24 hours on 06/18/25. Any new orders? Update Spoke to Dr. Arndt who is covering for Dr. Ngo. Per Dr. Arndt, ok to keep same dose of vanc. Patient is at goal. Called [facility] and spoke to Claude and made her aware no changes to vanc dose. Claude verbalized understanding. Images from the original note were not included. Received call from Polly, nurse at [facility]. She stated today's vanc level is 10.2. Vanc also drawn on 06/14 and level was 12.2. All other labs faxed from 06/14/25. Creatinine within normal limits. Spoke to Dr. Arndt who is covering for Dr. Ngo. Per Dr. Arndt, increase Vanc to 1.5g every 24 hours. Called Polly back and gave verbal orders for vanc. Polly able to read back orders. Informed her to resume lab schedule next week. Verbalized understanding. Updated OPAT scanned under media. documented in this encounter [facility] 06-18-2025 Evaluation + Plan note Associated Problem(s): Elevated LFTs Likely secondary to alcohol use. Ultrasound abdomen with hepatomegaly. Doppler of the liver showed no thrombosis. -Upon review he has already been restarted on rosuvastatin 40 mg daily. Will recheck LFTs in about 6 weeks- orders placed. [facility] 06-18-2025 Miscellaneous Notes Associated Problem(s): Elevated LFTs Likely secondary to alcohol use. Ultrasound abdomen with hepatomegaly. Doppler of the liver showed no thrombosis. -Upon review he has already been restarted on rosuvastatin 40 mg daily. Will recheck LFTs in about 6 weeks- orders placed. Associated Problem(s): Chronic hyponatremia -Baseline Na 124-128 -Na below baseline seems to be due to nutritional deficiency per urine studies -on labs 06/14/2025 Na 133 -complete abstinence of ETOH recommended Associated Problem(s): Encounter for removal of cardiac resynchronization therapy defibrillator (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) 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 explanted 05/25/2025 in setting of continued MRSA bacteremia. Since his EF had improved to 50%, he did not qualify for LifeVest. -Continue EP follow-up -reviewed left chest incision Associated Problem(s): Permanent atrial fibrillation (HCC) Nonvalvular. Remains in rate controlled A-fib today. -Continue Toprol 75 mg p.o. twice daily -Continue Eliquis 5 mg p.o. 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 EF 21% per echocardiogram November 2023. Decompensations usually related to noncompliance with medical therapy. No current heart failure symptoms and appears euvolemic on physical exam. He has been compliant with medications. -Continue Toprol 75 mg p.o. twice daily -Continue losartan 25 mg p.o. daily -Continue spironolactone 25 mg p.o. daily -Continue Farxiga 5 mg p.o. daily - at facility on alternate SGLT2i -Continue torsemide 30 mg p.o. daily -Heart failure self-care reviewed- daily weights and low-sodium diet at the [facility]; BMP weekly there, most recently stable lytes and creat; scheduled again to get BMP 06/23/2025 and will send us a copy -instructed to call if weight gain of 3 lbs in a day or 5 lbs in a week documented in this encounter [facility] 06-18-2025 Evaluation + Plan note Associated Problem(s): Chronic hyponatremia -Baseline Na 124-128 -Na below baseline seems to be due to nutritional deficiency per urine studies -on labs 06/14/2025 Na 133 -complete abstinence of ETOH recommended [facility] 06-18-2025 Evaluation + Plan note Associated Problem(s): Encounter for removal of cardiac resynchronization therapy defibrillator (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) 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 explanted 05/25/2025 in setting of continued MRSA bacteremia. Since his EF had improved to 50%, he did not qualify for LifeVest. -Continue EP follow-up -reviewed left chest incision [facility] 06-18-2025 Evaluation + Plan note Associated Problem(s): Permanent atrial fibrillation (HCC) Nonvalvular. Remains in rate controlled A-fib today. -Continue Toprol 75 mg p.o. twice daily -Continue Eliquis 5 mg p.o. twice daily -CBC BMP stable 06/2025; next in 6 mos; declines incidence bleeding [facility] 06-18-2025 Evaluation + Plan note Associated Problem(s): Heart failure with improved ejection fraction (HFimpEF) (HCC) HFrEF, biventricular 2/2 NICM, stage C, class II. EF 21% per echocardiogram November 2023. Decompensations usually related to noncompliance with medical therapy. No current heart failure symptoms and appears euvolemic on physical exam. He has been compliant with medications. -Continue Toprol 75 mg p.o. twice daily -Continue losartan 25 mg p.o. daily -Continue spironolactone 25 mg p.o. daily -Continue Farxiga 5 mg p.o. daily - at facility on alternate SGLT2i -Continue torsemide 30 mg p.o. daily -Heart failure self-care reviewed- daily weights and low-sodium diet at the [facility]; BMP weekly there, most recently stable lytes and creat; scheduled again to get BMP 06/23/2025 and will send us a copy -instructed to call if weight gain of 3 lbs in a day or 5 lbs in a week [facility] 06-18-2025 History of Present illness Narrative Images from the original note were not included. [facility] - [address] [place] [id number] Dept: [phone] Dept Visit type: Established : 1955 Reason for Visit: Hospital Follow-up Assessment and Plan 1. Heart failure with improved ejection fraction (HFimpEF) ([facility]) Assessment & Plan: HFrEF, biventricular 2/2 NICM, stage C, class II. EF 21% per echocardiogram November 2023. Decompensations usually related to noncompliance with medical therapy. No current heart failure symptoms and appears euvolemic on physical exam. He has been compliant with medications. -Continue Toprol 75 mg p.o. twice daily -Continue losartan 25 mg p.o. daily -Continue spironolactone 25 mg p.o. daily -Continue Farxiga 5 mg p.o. daily - at facility on alternate SGLT2i -Continue torsemide 30 mg p.o. daily -Heart failure self-care reviewed- daily weights and low-sodium diet at the [facility]; BMP weekly there, most recently stable lyjanay and creat; scheduled again to get BMP 06/23/2025 and will send us a copy -instructed to call if weight gain of 3 lbs in a day or 5 lbs in a week 2. Encounter for removal of cardiac resynchronization therapy defibrillator (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) Assessment & Plan: 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 explanted 05/25/2025 in setting of continued MRSA bacteremia. Since his EF had improved to 50%, he did not qualify for LifeVest. -Continue EP follow-up -reviewed left chest incision 3. Permanent atrial fibrillation (HCC) Assessment & Plan: Nonvalvular. Remains in rate controlled A-fib today. -Continue Toprol 75 mg p.o. twice daily -Continue Eliquis 5 mg p.o. twice daily -CBC BMP stable 06/2025; next in 6 mos; declines incidence bleeding 4. Chronic hyponatremia Assessment & Plan: -Baseline Na 124-128 -Na below baseline seems to be due to nutritional deficiency per urine studies -on labs 06/14/2025 Na 133 -complete abstinence of ETOH recommended 5. Elevated LFTs Assessment & Plan: Likely secondary to alcohol use. Ultrasound abdomen with hepatomegaly. Doppler of the liver showed no thrombosis. -Upon review he has already been restarted on rosuvastatin 40 mg daily. Will recheck LFTs in about 6 weeks- orders placed. Orders: - Comprehensive metabolic panel Follow up in about 3 months (around 09/18/2025). Subjective Hx HFrEF 2/2 NICM s/p 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, permanent nonvalvular Afib, COPD on home O2, ETOH use, tobacco use He is known to Dr. Almaraz and last seen 09/19/2022. Since his last office visit he has had multiple hospitalizations for COPD exacerbation, pneumonia and heart failure. He is noncompliant with medications and follow-up at times. Last echocardiogram done November 2023 with ejection fraction of 21% with global hypokinesis, 3+ tricuspid regurgitation with RVSP 47 mmHg, severe left atrial dilation and 1-2+ mitral regurgitation. He was hospitalized September 2024 after he stopped taking his heart failure medications and was admitted for acute decompensated heart failure. He was noted to have hyponatremia. Cardiology was not consulted during that admission. He was diuresed and placed back on GDMT. Seen 10/14/2024 in follow-up when he had no heart failure symptoms and was euvolemic. GDMT was continued. He was to follow-up with Dr. Foote and with Dr. Tiwari and he was a no-show for those appointments. He was hospitalized October 2024 with change of mental status and confusion. He was treated for acute hypercapnic respiratory failure. Blood pressures were low and his medications were adjusted. In May 2025 he was admitted to [facility] with respiratory distress. Upon presentation, he was febrile, hyponatremic with concern for sepsis. He was admitted to the ICU and ended up intubated and treated for left lower lobe pneumonia and alcohol withdrawal. Blood cultures were positive for MRSA bacteremia. Echocardiogram 05/20/2025 showed no obvious signs of vegetation and an improved EF of 50%. He continued to have positive blood cultures and it was ultimately decided to extract his 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. He did not need a LifeVest as his EF had improved. He also had continued hyponatremia, which is felt to be secondary to alcohol use. He had increased LFTs with unrevealing abdominal ultrasound. His statin was held. He presents today for hospital follow-up. He was discharged to [facility]. 2LNC oxygen. Daily weights at [facility] - between 170-174. Following no-added salt diet at [facility]. Call the office if weight gain of 3 lbs in a day or 5 lbs in a week Getting weekly labs- CBC BMP, which have showed stable blood counts, and normalization of electrolytes (potassium and sodium) He denies any bleeding. Feels that he is doing well. Krystina Markham Review of Systems Constitutional: Negative for activity change, chills, diaphoresis, fatigue and fever. HENT: Negative for nosebleeds and trouble swallowing. Eyes: Negative for discharge and visual disturbance. Respiratory: Positive for shortness of breath (2LNC, feels stable). Negative for apnea, cough, chest tightness and wheezing. Cardiovascular: Negative for chest pain, palpitations and leg swelling. Gastrointestinal: Negative for abdominal distention, abdominal pain, blood in stool, diarrhea, nausea and vomiting. Endocrine: Negative for cold intolerance and heat intolerance. Genitourinary: Negative for hematuria. Musculoskeletal: Negative for gait problem (no cane, no assistive devices) and myalgias. [facility], participating in therapy Skin: Negative for color change and rash. Neurological: Negative for dizziness, seizures, syncope, facial asymmetry, speech difficulty, weakness, light-headedness, numbness and headaches. Hematological: Does not bruise/bleed easily. Psychiatric/Behavioral: Negative for dysphoric mood. Allergies[1] Current Medications[2] Medical History[3] Social History Tobacco Use Smoking status: Every Day Current packs/day: 0.25 Average packs/day: 0.3 packs/day for 53.1 years (13.3 ttl pk-yrs) Types: Cigarettes Start date: 1972 Smokeless tobacco: Never Tobacco comments: 8 cig daily Substance Use Topics Alcohol use: Yes Alcohol/week: 7.0 standard drinks of alcohol Types: 7 Cans of beer per week Comment: once beer daily Surgical History[4] Family History[5] Objective Vitals: 06/18/25 1500 BP: 116/70 BP Location: Left arm Patient Position: Sitting BP Cuff Size: Adult Pulse: 54 SpO2: 99% Weight: 170 lb 14.4 oz (77.5 kg) Height: 5' 8" (1.727 m) Physical Exam Constitutional: Appearance: Normal appearance. HENT: Head: Normocephalic. Eyes: General: No scleral icterus. Right eye: No discharge. Left eye: No discharge. Neck: Comments: No JVD Cardiovascular: Rate and Rhythm: Normal rate and regular rhythm. Pulses: Normal pulses. Heart sounds: Normal heart sounds. No murmur heard. Comments: Trace pitting ankles bilateral Pulmonary: Effort: Pulmonary effort is normal. Breath sounds: Wheezing present. Comments: 2LNC Chest: Comments: Left chest incision healing; no drainage, no pus, no erythema Abdominal: General: Abdomen is flat. Palpations: Abdomen is soft. Musculoskeletal: General: Normal range of motion. Cervical back: Normal range of motion. Skin: General: Skin is warm and dry. Capillary Refill: Capillary refill takes less than 2 seconds. Neurological: Mental Status: He is alert and oriented to person, place, and time. Psychiatric: Mood and Affect: Mood normal. Data Reviewed and Summarized EF BP Date Value Ref Range Status 06/04/2025 40 (A) 55 - 100 % Final Review of tests/labs done/ordered within my specialty: 06/03/25 TRANSTHORACIC ECHOCARDIOGRAM (TTE) COMPLETE (CONTRAST/BUBBLE/3D PRN) 06/04/2025 3:35 PM (Final) Interpretation Summary Left Ventricle: Left ventricle size is normal. Mildly increased wall thickness. Moderate septal thickening. Mildly reduced left ventricular systolic function. The EF by visual approximation is 45%. Mild global hypokinesis present. Right Ventricle: Right ventricle size is normal. Mildly reduced systolic function. Tricuspid Valve: Mild to moderate (1-2+) regurgitation. RVSP is 39 mmHg. Left Atrium: Left atrium is severely dilated. Left atrium size is severely increased (LA volume index >48 mL/m2).LA Vol Index A/L is 71 mL/m2. Signed by: Ronnie Almaraz MD on 06/04/2025 3:35 PM Review of tests/labs done/ordered outside my specialty: Latest Reference Range & Units 06/02/25 00:14 SODIUM 136 - 145 mmol/L 131 (L) POTASSIUM 3.5 - 5.1 mmol/L 4.2 CHLORIDE 98 - 107 mmol/L 94 (L) Carbon Dioxide (CO2) 23 - 31 mmol/L 28 ANION GAP 3 - 13 mmol/L 9 Urea Nitrogen (BUN) 9 - 23 mg/dL 24 (H) Creatinine 0.72 - 1.25 mg/dL 0.91 eGFR >60.0 mL/min/1.73m*2 >90.0 GLUCOSE 82 - 115 mg/dL 98 CALCIUM 8.8 - 10.0 mg/dL 8.6 (L) PHOSPHORUS 2.3 - 4.7 mg/dL 3.2 MAGNESIUM 1.6 - 2.6 mg/dL 1.7 ALKALINE PHOSPHATASE 40 - 150 U/L 114 ALBUMIN 3.4 - 4.8 g/dL 2.5 (L) TOTAL PROTEIN 6.4 - 8.3 g/dL 6.3 (L) AST <34 U/L 247 (H) ALT <40 U/L 187 (H) BILIRUBIN TOTAL <1.2 mg/dL 0.6 Auto WBC 3.6 - 10.7 10*3/uL 9.1 RBC 4.40 - 5.90 10*6/uL 3.64 (L) HEMOGLOBIN 13.0 - 18.0 g/dL 10.9 (L) HEMATOCRIT 40.0 - 52.0 % 31.7 (L) MCV 77.0 - 99.0 fL 87.1 MCH 26.0 - 34.0 pg 29.9 MCHC 30.5 - 36.0 % 34.4 RDW 11.5 - 15.0 % 13.1 Platelets 140 - 440 10*3/uL 362 Mean Platelet Volume (MPV) 9.0 - 12.7 fL 9.2 Neutrophils Relative 38.0 - 82.0 % 74.4 Lymphocytes Relative 15.0 - 45.0 % 9.8 (L) Monocytes Relative 5.0 - 13.0 % 12.0 Eosinophils Relative 0.0 - 6.0 % 1.7 Basophils Relative 0.0 - 2.0 % 1.2 Absolute Neutrophils 1.8 - 7.5 10*3/uL 6.7 Lymphocytes Absolute 1.0 - 4.3 10*3/uL 0.9 (L) Monocytes Absolute 0.0 - 0.9 10*3/uL 1.1 (H) Eosinophils Absolute 0.0 - 0.5 10*3/uL 0.2 Basophils Absolute 0.0 - 0.2 10*3/uL 0.1 nRBC 0.0 - 2.0 /100 WBCs 0.0 Immature Grans Absolute <0.1 10*3/uL 0.1 (H) Immature Grans % 0.0 - 2.0 % 0.9 (L): Data is abnormally low (H): Data is abnormally high Independent interpretation of tests: I, PRIYA Juarez CNP, furnish ongoing care related to Krystina Markham single, serious and complex condition(s) heart failure. I assume responsibility for the patient's ongoing medical care of this condition. PRIYA Juarez CNP [1] Allergies Allergen Reactions Cefepime Rolan syndrome [2] Current Outpatient Medications: acetaminophen (Tylenol) 325 MG tablet, Take 325 mg by mouth every 8 hours as needed for mild pain (1-3)., Disp: , Rfl: albuterol (2.5 MG/3ML) 0.083% nebulizer solution, Take 3 mL (2.5 mg) by nebulization as needed for wheezing or shortness of breath., Disp: 75 mL, Rfl: 3 apixaban (Eliquis) 5 MG tablet, Take 1 tablet (5 mg) by mouth 2 times daily., Disp: 60 tablet, Rfl: 11 dapagliflozin (Farxiga) 10 MG tablet, Take 1 tablet (10 mg) by mouth daily., Disp: , Rfl: diphenhydrAMINE (BENADryl) 50 MG/ML injection, Infuse 0.5 mL (25 mg) into a venous catheter daily. Prior to vancomycin infusions, Disp: , Rfl: folic acid (Folvite) 1 MG tablet, TAKE 1 TABLET (1,000 MCG) BY MOUTH EVERY MORNING., Disp: 90 tablet, Rfl: 3 losartan (Cozaar) 25 MG tablet, TAKE 1 TABLET BY MOUTH EVERY DAY, Disp: 90 tablet, Rfl: 3 metoprolol succinate XL (Toprol-XL) 25 MG 24 hr tablet, Take 3 tablets (75 mg) by mouth 2 times daily. Do not crush or chew., Disp: , Rfl: mirtazapine (Remeron Kelsea-Tab) 15 MG disintegrating tablet, Take 1 tablet (15 mg) by mouth Nightly., Disp: , Rfl: mometasone-formoterol (Dulera 100) 100-5 MCG/ACT inhaler, Inhale 2 puffs 2 times daily. Rinse mouth with water after use to reduce aftertaste and incidence of candidiasis. Do not swallow., Disp: , Rfl: Potassium Chloride 20 MEQ/15ML (10%) solution, Take 20 mEq by mouth Once., Disp: , Rfl: predniSONE (Deltasone) 10 MG tablet, Take 2 tablets (20 mg) by mouth daily for 5 days, THEN 1 tablet (10 mg) daily for 3 days., Disp: 13 tablet, Rfl: 0 rosuvastatin (Crestor) 40 MG tablet, TAKE 1 TABLET BY MOUTH EVERY DAY, Disp: 90 tablet, Rfl: 1 spironolactone (Aldactone) 25 MG tablet, TAKE 1 TABLET BY MOUTH EVERY DAY, Disp: 90 tablet, Rfl: 1 thiamine (Vitamin B1) 100 MG tablet, Take 1 tablet (100 mg) by mouth daily., Disp: , Rfl: tiotropium (Spiriva Respimat) 2.5 MCG/ACT inhaler, Inhale 2 puffs daily., Disp: , Rfl: torsemide (Demadex) 10 MG tablet, Take 3 tablets (30 mg) by mouth daily., Disp: , Rfl: vancomycin IVPB 1500 mg in 250 mL NS (premix), Infuse 250 mL (1,500 mg) into a venous catheter Every 24 hours., Disp: , Rfl: [3] Past Medical History: Diagnosis Date Alcohol consumption heavy 09/10/2015 stopped 3w ago Asthma (HHS/HCC) Atrial fibrillation (HCC) CHF (congestive heart failure) (HCC) 01/31/2016 COPD (chronic obstructive pulmonary disease) (HCC) 09/10/2015 Cor, pulmonale, acute (HCC) Deep venous thrombosis (HCC) 02/2016 Depression Hx of blood clots Obesity 09/10/2015 DELORES (obstructive sleep apnea) Pulmonary embolus (HCC) 6 16 Raynaud phenomenon 09/10/2015 Smoker 09/10/2015 [4] Past Surgical History: Procedure Laterality Date ABDOMINAL SURGERY BRONCHOSCOPY 02/25/2020 BRONCHOSCOPY (HISTORICAL) 02/25/2020 CARDIAC ELECTROPHYSIOLOGY PROCEDURE N/A 05/25/2025 Performed by Karthik Mendoza MD at [facility] Cardiac Cath/EP Lab COLONOSCOPY 10/27/[address] CHEST ANGIOGRAM W AND/OR WO IV CONTRAST 07/12/2022 CT CHEST ANGIOGRAM W AND/OR WO IV CONTRAST 07/12/2022 [facility] CT IMAGING FINGER AMPUTATION Left HERNIA REPAIR NOSE SURGERY PACEMAKER (HISTORICAL) [5] Family History Problem Relation Name Age of Onset Asthma Father Congenital Anomaly Father Cancer Father Asthma Sister Heart disease Mother Heart disease Brother Pacemaker Mother Congenital Anomaly Sister Cancer Mother Diabetes Mother documented in this encounter [facility] 06-18-2025 Telephone encounter Note Images from the original note were not included. Received call from Polly, nurse at [facility]. She stated today's vanc level is 10.2. Vanc also drawn on 06/14 and level was 12.2. All other labs faxed from 06/14/25. Creatinine within normal limits. Spoke to Dr. Arndt who is covering for Dr. Ngo. Per Dr. Arndt, increase Vanc to 1.5g every 24 hours. Called Polly back and gave verbal orders for vanc. Polly able to read back orders. Informed her to resume lab schedule next week. Verbalized understanding. Updated OPAT scanned under media. [facility] 06-15-2025 Telephone encounter Note COPD Navigator Note Called patient on home phone. No answer. Left Voicemail. [facility] 06-15-2025 Miscellaneous Notes COPD Navigator Note Called patient on home phone. No answer. Left Voicemail. documented in this encounter [facility] 06-10-2025 Note [facility] 06-10-2025 Nurse Note Report called to [facility]. Spoke with Nisreen. Interventional Radiology Post Procedure Coby Joyner tolerated his PICC Exchange very well. Old length was 40cm New length is 44cm, right arm. Stat Lock is in place. Dressing is dry and intact. No bleeding. No hematoma. Ok to use order is in. Transfer back to his room. IR Procedures Robin [place] for [place] PICC placement . He has verbalized understanding of the procedural instructions. Dr. Dimitris Caraballo has spoken to him. History, allergies, medications and lab results reviewed. Informed consent has been signed. Prepped and draped in sterile fashion. Time out performed. He is on a monitor. Patient ready for the procedure. IR is ready. Notified Dr Shankar, Dr Arndt, and Elena LAM regarding process for discharge today. Wound Care consulted for Pressure Injury Prevention. Pt's Keegan score= 18 on 06/08 Pt sitting up in chair upon arrival to room for visit. Pt's pressure points assessed. Pt stood independently for posterior assessment. Pt's Heels, Buttocks/coccyx, Back, Elbows, Occiput and ears all intact. [place] and blanchable tissues noted to lower medial buttocks. Instructed pt on pressure injury prevention and importance of turning/postioning every 2hrs while in bed and every 15 min while sitting in chair. Instructed on use and care of waffle chair cushion. Verbalized understanding. Prevention Measures in place, including: Pillows/wedges, Heels elevated off bed on pillows, Zinc/Moisture Barrier ointment (obtained), Waffle chair cushion (obtained for pt). Skin Care precaution order set in place. Dietitian consult in place. PT/OT consult in place. Will continue to follow pt. Please secure chat for any questions or concerns. Terri Hu RN Wound Care consulted for Pressure Injury Prevention. Pt's Keegan= 19, pt is no longer at risk at this time. Skin Care Precaution order set in place. Dietitian consult in place. PT/OT consults in place. Will continue to follow peripherally. Please secure chat message with any questions. Terri Hu RN Upon return from bathroom with oxygen on pulse ox was hard to read from fingers- fingers miley and dark, but warm, non blanchable. Pt has history of Raynaud's disease. Pulse ox reading on ear was 98 % on 4l/ nc oxygen. Color and perfusion returned to fingers after approx 6-10 minutes. No additional respiratory distress noted or reported during this time. Resp Therapy & MD notified. PICC port remains occluded-second dose given. Cath david 2236 to white port PICC line.Mild resistance. 30 min. Aspiration attempt woithout success. documented in this encounter [facility] 06-10-2025 Miscellaneous Notes Chilo Esteban did claim the wheelchair transport for 6:30 this evening. Dc planning team notified. Dc transportation arranged through [employer] for a 5:00 roll picker to [facility] [facility]. Patients ex- had wanted to take him but the doctor did not feel that would be a safe option. Wheelchair transportation requested. Waiting on someone to accept the trip. Patient Choice Patient Name: KRYSTINA MARKHAM Date of : 1955 All Providers Sent Referral Name: [facility] Phone: [phone] Address: [address] [place] [address] Discharge med list transmitted to [facility] via [employer] per TCC request. Care Management Progress Note Short Medical why still here: PICCLINE placement and DC workflow DC orders noted. Pt has PICCLINE placed. [employer] FORM PLACING SUPERVISOR tasked and sent OPAT in [facility]port to [facility]. STE[employer] FORM PLACING SUPERVISOR tasked to send DC packet and MAR to facility. MD would like transport arranged to take pt to facility. This TCC tried to call ex Melodie to notify her of this since she wanted to take pt herself. This TCC called x 2 and was unable to reach or leave voicemail message as VM was not set up on recording. SW arranging transport set up now. Will notify facility. Planned Discharge Disposition: [facility] Facility Barriers/Today we still Wait: Administering IV medications, Attending completion of discharge workflow Length of Stay (Days): 6 GMLOS: 4.8 SENT OPAT TO [facility] via [employer] per TCC request. Await review and response regarding ability to accept. TCC notified. COPD Navigator Note Introduced myself and explained my role. Reviewed Managing COPD at Home handout. Patient sitting upright in bed on RA with SpO2 97%. RA at baseline. Patient states his breathing is improving. He was recently admitted 05/20/25-06/02/25, discharged to SNF. Breath sounds bilateral diminished. Strong nonproductive cough. Patient instructed on deep breathing and coughing techniques. Patient has established with COPD Clinic. He has not completed pulmonary visit since 04/15/24. PFTs 02/11/20, moderate obstruction. Reviewed home respiratory medications. Currently ordered: Albuterol MDI every 4 hours as needed, Dulera twice daily, Spiriva daily. Patient has access to all of their medications and uses them as prescribed. Patient able to verbalize proper routine and schedule for inhaler use. Instructed on proper inhaler technique. Discussed Maintenance and Rescue medications. Patient is a current 0.25 ppd smoker. Patient agreeable to assistance with scheduling hospital follow-up with pulmonary. Patient aware of hospital follow-up with COPD Clinic on 07/02/25 with Bonita Marcelo CNP. Patient provided patient with COPD Clinic contact info and encouraged him to reach out with any questions or concerns. Care Management Progress Note Short Medical why still here: Clinical stability Chart reviewed. Geriatrics consulted for capacity. MD's notified that pt has auth to return back to [facility]. Spoke with ID and they state OPAT is same as before. Will follow DCP: back to [facility] Planned Discharge Disposition: [facility] Facility Barriers/Today we still Wait: Administering IV medications, Clinical stability, Symptomatic control, Diagnostic workup Length of Stay (Days): 5 GMLOS: No GMLOS Documented Notified by [facility] wireworker supervisor that auth has been approved by [employer]. [facility] notified. Auth good for 48 hrs. Care Management Progress Note Short Medical why still here: IV antibiotics/ Precert auth [facility] tasked to initiate precert auth with [employer] Medicare for SNF return to [facility]. Planned Discharge Disposition: [facility] Facility Barriers/Today we still Wait: Administering IV medications, Clinical stability, Diagnostic workup, Symptomatic control Length of Stay (Days): 4 GMLOS: No GMLOS Documented Care Managment Initial Assessment Date: 06/08/2025 Patient Name: Krystina Markham : 1955 Patient Information Source of Information: Ex Ced Cognition/Language: [place] Zealander Permission given to speak with patient outbound call center representative/caregiver as indicated: Confirmation of Payer with patient/family: Yes Payer Name: [employer] medicare [place]: Confirmation of Primary Care Physician: No PCP Primary Caregiver: Melodie- Ex If assistance needed, confirmed caregiver ready, willing and able to care for patient at discharge: Confirmed with: Melodie Living Arrangements Current Residence: Apartment Number of Floors Number of Entry Steps: Bed/Bath Levels: Facility: Facility Name: Plan to Return: Lives with: Support Systems: Activities of Daily Living Ambulation: IND Bathing/Dressing: IND Elimination/Continence/Toileting: Feeding: IND Who Assists with Activities of Daily Living: EX Instrumental Activities of Daily Living Prescription Coverage: Yes Pharmacy Used: [facility] in [place] Medication Management: Transportation/Shopping: Ex Ced Transportation Mode: Car Needs Assistance with Transportation at Discharge: No Meal Preparation: Ex Laundry/Cleaning: Ex Finances/Bill Paying: Ex Communication: Types of Care Services/Equipment Utilized Care Services: N/A Dialysis Type: N/A Durable Medical Equipment: N/A Patient's Goal/Discharge Plan Patient expects to be discharged to: [facility] Discharge Planning Actions: Patient's Choice Rights and [employer] and Collaborative Relationships Disclosed as Indicated for Post-Acute Care: Yes Interdisciplinary Team Engagement: Yes Social Work Referral for: Additional Information: Pt remains on 2E for evaluation of SOB. Pt was from [facility] prior to admission for IV antibiotics and spoke with pt and pt told this TCC to speak to his exwife melodie. This TCC called melodie and confirmed with her that he is to go back to [facility] [place]. . Melodie states she helps pt with his ADL's. She states pt lives in an apartment. Will need new auth prior to returning to SNF. Will continue to follow for [place] planning needs. Elena Marcano RN SENT UPDATED NOTES TO RETURN BACK TO [facility] via [facility]port per TCC request. Await review and response regarding ability to accept. TCC notified. Care Management Progress Note Short Medical why still here: Remains on 2E for acute and chronic respiratory failure; and acute COPD exacerbation secondary to rhinovirus/enterovirus. Critical Care consulted - maintain GMF status. Lethargic. Requiring 5L BiPAP - on 2L supplemental O2 at baseline. Scheduled IV meds include: Maxipime q8h, Lasix BID, Solu-Medtrol q6h, Protonix nightly, and Vanco q24h. Planned Discharge Disposition: [facility] Facility (return to [facility]) Barriers/Today we still Wait: Clinical stability, Administering IV medications, Facility pre-cert Length of Stay (Days): 0 GMLOS: No GMLOS Documented Chart reviewed. Expected Discharge, Rapid Rounding, and Discharge Milestones / Delays updated as appropriate. Stopped by bedside to complete IA - patient very lethargic and requested CM return at another time. Was able to confirm he would like to return to [facility] at [place]. Sent SNF referral for return via [employer]. [facility] able to accept - will need new auth. documented in this encounter [facility] 06-10-2025 History of Present illness Narrative [facility] - Infectious Diseases Attending Progress Note Nonbillable note- Subjective: No acute events afebrile- had MRI of Rshoulder earlier today and ORS already evaluated him. Off the floor now for PICC repositioning. Objective: Vitals: Patient Vitals for the past 24 hrs: BP Temp Temp src Pulse Resp SpO2 06/10/25 0935 -- -- -- -- -- 97 % 06/10/25 0901 100/73 -- -- 77 -- -- 06/09/25 2314 -- -- -- 72 18 98 % 06/09/25 2058 95/62 37.1 C (98.8 F) Temporal 77 18 98 % 06/09/251999 -- -- -- 81 19 99 % 06/09/25 1751 99/69 -- -- 77 -- -- 06/09/25 1610 (!) 89/52 37.2 C (98.9 F) Temporal 80 18 93 % 06/09/25 1547 -- -- -- 76 18 96 % Physical Exam Vitals reviewed. deferred Labs: Lab Results Component Value Date/Time NA 134 (L) 06/10/2025428 K 3.5 06/10/2025428 CL 98 06/10/2025428 CO2 27 06/10/2025428 CO2 36 (H) 10/14/2024 1440 BUN 26 (H) 06/10/2025428 BUN 20 10/14/2024 1440 CREATININE 0.84 06/10/2025428 CREATININE 0.60 (L) 10/14/2024 1440 GLUCOSE 97 06/10/2025428 GLUCOSE 110 (H) 10/14/2024 1440 CALCIUM 8.5 (L) 06/10/2025428 CALCIUM 9.9 10/14/2024 1440 PROT 5.5 (L) 06/10/2025428 BILITOT 0.4 06/10/2025428 ALKPHOS 78 06/10/2025428 AST 16 06/10/2025428 ALT 33 06/10/2025428 PROCAL 0.35 (H) 06/06/2025 0053 PROCAL 0.44 (H) 06/04/2025 0201 PROCAL 0.51 (H) 05/20/2025 2220 Lab Results Component Value Date/Time WBC 8.3 06/10/2025428 HGB 11.5 (L) 06/10/2025428 HGB 13.0 (L) 06/04/2025 0211 HCT 33.7 (L) 06/10/2025428 PLT 148 06/10/2025428 GRANULOCYTES 70.7 08/25/2021 0504 LYMPHOPCT 2 (L) 06/10/2025428 MONOPCT 0 (L) 06/10/2025428 LABEOS 3.6 08/25/2021 0504 BASOPCT 1 06/09/2025 0434 BASOPCT 1 06/08/2025 0330 NEUTROABS 4.4 06/07/2025 0547 Micro: reviewed 06/04 BC: neg Resp path PCR: Rhinovirus Lines: PICC Radiography/Echo/Other: Reviewed MRI R shoulder Impression: 1. Large, rim-enhancing glenohumeral joint effusion, which extends through the shoulder joint capsule into the anterior to mid aspect of the deltoid muscle. The joint effusion contains extensive, nonenhancing debris and synovitis. The sterility of the effusion cannot be evaluated by imaging and aspiration is recommended if there is concern for superimposed infection. 2. Although the evaluation is limited, there is a tiny amount of bone marrow edema within the distalmost aspect of the chronically eroded clavicle and acromion as well as within the bony glenoid, probably chronic given the appearance on the earlier radiographs. 3. Severe glenohumeral degenerative changes and complete tear of all 4 rotator cuff tendons with severe atrophy of their muscle bellies. Antimicrobials, Start/End Dates: Vancomycin Cefepime dc'd Impression: 70 M , initially admitted to [facility] on 05/22 with MRSA sepsis, presumed LRTI source, and given ICD requiring replacement, planned 6 weeks IV course. Readmitted with resp distress but unremarkable workup, only Rhinovirus infection this time. HAP coverage dc'd already and clinically back to baseline. Rash may instead be from Cefeoime rather than Red man syndrome form Vancomycin. For now continue same antibiotic. If rash persists, or worsens, will switch to Daptomycin. Steroids per Primary team. R shoulder abnormal MRI- per ORS, probably DJD related, deferring aspiration for now. If worsens clinically, consider aspiration and send for cultures. Overall HD stable, improving. Plan: OK to complete previous OPAT as planned to 07/05. Dosing updated to reflect 1 gm q24 while in house here. Weekly labs and will need surveillance bC afterwards. Already has EOT appointment with ID. Case d/w CM and Primary Svc. OK to DC to ECF. Orthopedic Surgery Progress Note The following x-rays were ordered and subsequently completed. My interpretation is as follows: Right shoulder MRI (06/10/2025): There is a heterogenous, well loculated fluid collection about the right shoulder that extends into the glenohumeral region. There is severe degenerative changes of the right glenohumeral joint with tears of all 4 rotator cuff tendons. There is no obvious bony enhancement or edema. There is no acute fracture or dislocation. Radiology reports reviewed. In the context of resident exam, benign labs, and severe osteoarthritis, effusion is felt to be related to osteoarthritis at this time. Aspiration is not felt to be warranted at this juncture given available information. Recommend follow-up as an outpatient with Dr. Jackson for consideration of right reverse total shoulder arthroplasty, if patient is interested. Will update Dr. Ray Orthopaedic surgery will sign off. Please page supervisor ski production orthopaedic resident for questions or concerns. Images from the original note were not included. PHYSICAL THERAPY [facility] Name/MRN: Krystina Markham ([id number]) Date: 06/10/2025 Treatment is being deferred at present because currently just entered BR and stated would be a while. Will continue to follow . Natalie Montejo PTA Cosigned by Amaris Cao PT at 06/10/2025 3:04 PM EDT Nutrition Assessment Type and Reason for Visit: Reassess Nutrition Recommendations/Plan: Per mnt protocol will add 3-4 gm sodium diet hx chf -suggest 2 gm sodium if PO intake remains optimal Continue Ensure Plus daily as ordered RD to monitor labs, weight, skin status, PO intake -follow up weekly Malnutrition Assessment: Malnutrition Status: At risk for malnutrition (Comment) (acute on chronic illness) Context: Acute Illness Nutrition Assessment: 70 y.o. male "admitted with resp distress but unremarkable workup, only Rhinovirus infection this time. HAP coverage dc'd and clinically back to baseline. Rash may be from Cefeoime rather than red man syndrome form Vancomycin." ID following. Ortho consulted for shoulder effusion "consistent with likely benign fatty tumor as well as severe osteoarthritis". Pt sitting on side of bed -unable to obtain accurate bed scale wt. Pt reports stephanie meals with good appetite and reports drinking Ensure as ordered. assisted pt with requested debbie genna and items picked up off floor. poss discharge today noted Estimated Daily Nutrient Needs: Energy Requirements Based On: Kcal/kg Weight Used for Energy Requirements: [place] Weight for Energy Calculation (kg): 70 kg Total Energy Requirements (kcals/day): 25-30 or 4091-9539 Weight Used for Protein Requirements: Weight in Kg Used for Protein Requirements: 70 kg Estimated Total Protein (g/day): 1-1.2 or 70-84 Estimated Daily Total Fluid (ml/day): 1.8- 2 litrers or per md Nutrition Related Findings: +2 christine LE edema, soft, loose bm 06/10 per nursing records. na 134, bun 26, calcium 8.5, alb 2.6, bgluc 97, 195, a1c 6.0. farxiga, folic acid, SSI, remeron, prednisone, aldactone, thiamine, torsemide, abx. wt hx reviewed suspect influenced by fluid on diuretic Wound Type: Surgical Incision (chest incision c/d/i, generalized redness suspected from abx - per nursing records) 06/09/25 0600 -- 76.8 kg (169 lb 6.4 oz) 06/08/25 0600 -- 77.7 kg (171 lb 3.2 oz) 06/07/25 0641 Standing scale 77.6 kg (171 lb 2 oz) 06/07/25 0600 -- 79.9 kg (176 lb 2 oz) 06/06/25 0511 Standing scale 79.9 kg (176 lb 2 oz) 06/05/25 0535 Standing scale 77.4 kg (170 lb 9.6 oz) 06/04/25 0621 Stated 77 kg (169 lb 12.1 oz) 06/04/25 0518 Stated 77 kg (169 lb 12.1 oz) 06/04/25 0516 -- 77 kg (169 lb 12.1 oz) Current Nutrition Therapies: Adult diet Regular Current Oral Intake Average Meal Intake: 76-100% Average Supplements Intake: 76-100% Anthropometric Measures: Height: 172.7 cm (5' 8") Current Body Weight: 77.1 kg (170 lb) (06/02/25) Weight Source: Standing Scale Usual Body Weight: 80.3 kg (177 lb) (05/31) % Weight Change (Calculated): -4 [place] Body Weight (lbs) (Calculated): 154 lbs [place] Body Weight (Kg) (Calculated): 70 kg % [place] Body Weight (Calculated): 110.4 % BMI (kg/m2) (Calculated): 25.9 Weight Adjustment For: No Adjustment BMI Categories: Overweight (BMI 25.0-29.9) Nutrition Diagnosis: Increased nutrient needs related to impaired respiratory function as evidenced by other (comment) (+ rhinovirus) Altered nutrition-related lab values related to other (comment), cardiac dysfunction (liver, ntprobnp) as evidenced by lab values Nutrition Interventions: Nutrition Education/Counseling: No recommendation at this time Coordination of Nutrition Care: Continue to monitor while inpatient Plan of Care discussed with: Patient Goals: Goals: PO intake 75% or greater, by next RD assessment Specify Other Goals: labs will trend toward baseline Nutrition Monitoring and Evaluation: Behavioral-Environmental Outcomes: Knowledge or Skill Food/Nutrient Intake Outcomes: Food and Nutrient Intake, Supplement Intake Physical Signs/Symptoms Outcomes: Biochemical Data, Chewing or Swallowing, GI Status, Nausea or Vomiting, Fluid Status or Edema, Hemodynamic Status, Nutrition Focused Physical Findings, Skin, Weight Discharge Planning: Continue Oral Nutrition Supplement, Continue current diet Paloma Son RD Contact: *[phone] or via Secure Chat [facility] Respiratory Care Department Progress Note As part of the Respiratory Assessment Program (RAP), the following Respiratory Therapist evaluation has been completed, including a chart review and clinical/physical assessment. Respiratory Therapist RAP Evaluation Guideline Points 0 1 2 3 4 Points Strongly Consider History Factor No Pulmonary conditions Stable Pulmonary condition(s) Surgery or Intervention that may impact Pulmonary system (at risk) Surgery or Intervention that is impacting Pulmonary system Active Exacerbation of Pulmonary Condition 1 Respiratory Pattern Regular, RR= 12-18 NARAYANAN or Increased RR= 19-24 Irregular, or RR= 25-30 SOB, talk in short sentences, or RR= 31-35 Severe SOB, accessory muscle use, one word answers, or RR>35 0 Aerosol Med(s), High Flow O2 Breath Sounds Clear Diminished in 1 lobe Diminished in <= 2 lobes Adventitious breath sounds Coarse crackles, Wheezes, or Diminished in >2 lobes 2 Aerosol Med(s), Bronchial Hygiene, Hyperinflation Cough & Sputum Strong cough, no secretion retention or production Weak cough, no secretion retention or production Weak cough, w/ production (less often than Q2hr), or secretion retention No cough, w/ secretion retention or production (less often than Q2hr) Significant secretion production (more often than Q2hr) or mucus plug 1 Aerosol Med(s), Bronchial Hygiene, Hyperinflation Level of Activity Ambulatory Ambulatory with Assist Up in chair or edge of bed (dangle) Non-ambulatory, bedridden with active ROM Completely paralyzed or without active ROM 0 Triage 5 0-2 Triage 4 3-5 Triage 3 6-10 Triage 2 11-14 Triage 1 >=15 Total 4 Triage Score = 4 TRIAGE SCORING - SUGGESTED FREQUENCIES Aerosol Therapy Bronchial Hygiene Hyperinflation Triage Score Q4h & PRN 1 Q4hWA (QID) & PRN 2 TID & PRN 3 BID & PRN 4 PRN 5 RT to enter/modify frequency of treatment order in EMR/EHR to match this RAP evaluation. Based on this RAP evaluation the following therapy is being initiated: duoneb At the following frequency: bid Comments: Thank you for involving Respiratory in the care of this patient, MTS Attending Note Patient: Krystina Markham Date of : 1955 Admitting Diagnosis: Shortness of breath [R06.02] Hypoxemia [R09.02] COPD exacerbation (HCC) [J44.1] Acute on chronic congestive heart failure, unspecified heart failure type (HCC) [I50.9] Admit Date: 06/03/2025 Hospital Day: 6 Case discussed with residents, documentation, diagnostic studies and consults reviewed. History: Chief Complaint Patient presents with Shortness of Breath Pt brought in by EMS for SOB from [facility]. Pt currently recently diagnosed with pneumonia receiving IV vancomycin. HX of COPD and CHF. Overnight events: none Pmhx HfimpEF, COPD, afib, home o2 2L, DELORES, hyponatremia, MDD, ETOH/tob use, hx ICD Subjective: Patient sitting side of bed. No complaints. Lungs "about the same". No complaints of arm pain. Tolerating p.o. well. Denies chest pain or cough. Denies itching Objective: BP 100/73 Pulse 77 Temp 37.1 C (98.8 F) (Temporal) Resp 18 Ht 5' 8" (1.727 m) Wt 169 lb 6.4 oz (76.8 kg) SpO2 98% BMI 25.76 kg/m Temp (24hrs), Av.3 C (99.1 F), Min:37.1 C (98.8 F), Max:37.6 C (99.7 F) Intake/Output Summary (Last 24 hours) at 06/10/2025 0908 Last data filed at 06/09/2025 1753 Gross per 24 hour Intake 720 ml Output -- Net 720 ml Supplemental O2: O2 Flow Rate (L/min): 2 L/min Currently has no O2 on. General appearance: Pt in no acute distress. Sitting at side of bed. Cooperative with exam. HEENT: no scleral icterus , moist mucous membranes Respiratory: wheezing overall improved. no resp distress Cardiovascular: Irreg, distant sounds Abdomen: Soft, +BS Musculoskeletal: No edema bilaterally. Several amputations of the left fingers Skin: No acrocyanosis currently. Peeling skin on face. Rash nearly resolved. Erythema much improved Neurologic: Awake and alert, moving all 4 extremities. Seems to understand plan to finish antb at SNF then go to ex 's house CBC: Recent Labs 06/08/2532906/09/2543306/10/25428 WBC 6.5 7.4 8.3 RBC 4.08* 4.13* 3.94* HGB 11.9* 12.4* 11.5* HCT 35.7* 35.7* 33.7* MCV 87.5 86.4 85.5 RDW 13.2 13.4 13.3 PLT 143 135* 148 No components found for: "LABA1C" CARDIAC ENZYMES: No results for input(s): "TROPONINI" in the last 72 hours. Procalcitonin: No results found for: "PROCAL" BMP: Recent Labs 06/08/2532906/09/2543306/10/25428 NA 132* 132* 134* K 4.6 3.7 3.5 CL 94* 95* 98 CO2 25 26 27 BUN 28* 29* 26* CREATININE 0.89 0.82 0.84 GLUCOSE 122* 98 97 CALCIUM 9.0 8.7* 8.5* ANIONGAP 13 11 9 LIVER PROFILE: Recent Labs 06/08/2532906/09/2543306/10/25428 AST 20 16 16 ALT 60* 42* 33 BILITOT 0.4 0.4 0.4 ALKPHOS 96 88 78 PROT 6.4 6.0* 5.5* Lab Results Component Value Date IRON 74 06/06/2025 TIBC 200 (L) 06/06/2025 FERRITIN 633 (H) 06/06/2025 Vitamin B12 598 Blood cultures no growth Resp PCR +rhino/entero A1C 6 MRSA by PCR positive, MEC a positive Legionella/strep negative CBC shows no eosinophils this a.m. Had EEG 10/2024: The findings are consistent with a LEFT [id number]-du-tjg quadrant cortical irritability superimposed on mild global cerebral dysfunction nonspecific as to etiology. No seizure activity. CT head 05/20/2025: Probable chronic ischemic and atrophic changes. MRI brain 02/2024: No acute intracranial abnormalities. Generalized brain parenchymal volume loss and moderate chronic microvascular ischemic changes in the supratentorial white matter. CT chest angiogram w and/or wo IV contrast Pulmonary Arteries: There are no filling defects within the pulmonary arterial system to suggest pulmonary embolus. There is prominence of the main pulmonary arteries, which can be seen in the setting of pulmonary arterial hypertension. Cardiovascular: The heart is enlarged. Atherosclerotic vascular calcifications are present in the aortic arch and coronary arteries. Lungs: Moderate to severe centrilobular and paraseptal emphysema is seen. There is also dependent and bibasilar scarring/atelectasis. Persistent, albeit improved consolidation near the posterior left lung base. Impression: 1. Negative for acute pulmonary embolus. 2. The RV/LV ratio is <1. This is considered normal*. 3. Persistent, albeit improved consolidation near the posterior left lung base. 4. Additional chronic findings as above. ECG 12 lead Atrial fibrillation Ventricular premature complex Left bundle branch block XR chest 1 view Other findings: None. Impression: 1. Right arm PICC is looped in the right axillary region (only partially imaged). 2. Cardiomegaly. CXR 06/09/25 Findings: Mild cardiomegaly. Question subtle infiltrate or airspace disease within the left lung and right lung base. Mild atelectasis is conceivable. Several remote right-sided rib fractures. Mild calcification of aortic arch. Probable chronic rotator cuff tear of the right shoulder. ECG 12 lead Atrial fibrillation Left bundle branch block No significant change from prior. Artifact noted. Occasional PVC Electronically Signed On 06-04-2025 00:32:08 EDT by Reese Stafford Summary of singh issues: Acute on chronic respiratory failure with known MRSA bacteremia undergoing current treatment with vanc (last day scheduled 07/05/25). Now with entero/rhinovirus. Con't steroid taper Per ID discontinue Cefapime as blood cultures neg. Con't vac for MRSA bacteremia treatment till 07/05/25 Continue duonebs Home O2 eval prior to discharge IR recommending PIC line replacement due to coiling in axilla-will be done today Leukocytosis -resolved Red man syndrome from vancomycin vs cefepime. Tolerating vanco currently. Adding cefepime to allergy list Per ID--> to give over prolonged period of 4 hrs. Will also premedicate with antihistamin/Benadryl DC daily histamine amira Hyperglycemia likely due to steroids (last A1c this admission 6.0) Cover with sliding scale insulin PRN HFrEF Intermittent lasix dosing restart lower Demadex dose 30 mg q day for homegoing Con't beta amira/ARB/SGLT2/spironolactone COPDe/emphysema-uses home o2 PRN-->has burned self at home Auto bipap Steroids Home O2 PRN Can't smoke with oxygen use and will need to be in safe environment Prolonged QTC Hold prolonging meds QTC today still abnormal. Discontinue SSRI. Given abnl EEG reluctant to trial Well[place]run . Start Remeron. Persistant hyponatremia-con't to monitor Pulm HTN/DELORES/cardiomegaly-con't bipap CAD/afib/post ICD removal Con't anticoagulation Transaminitis-improving Restart statin at this time, MDD Discontinue SSRI. Hx raynaud pneumonia Anemia/stable-monitor Alcohol use-continue thiamine Debility-anticipating discharge to SNF. CM consulted. Cognitive impairment-per CT chronic ischemic and atrophic changes. Suspect dementia. Pt does not have capacity-unable to provide info as to need for antibiotics Obtain copy of HPOA from ex Geriatrics input appreciated Dispo: Change PIC line and discharge to SNF to con't antb till 07/05/25 See resident's note for additional details. Images from the original note were not included. Medical Teaching Service Progress Note Patient: Krystina Markham : 1955 Acct: [id number] PCP: Toi Davis MD Admitting Physician: Ashley Yang DO Admission Date: 06/03/2025 Admitting Diagnosis: Shortness of breath [R06.02] Hypoxemia [R09.02] COPD exacerbation (HCC) [J44.1] Acute on chronic congestive heart failure, unspecified heart failure type (HCC) [I50.9] Unit/Bed: B2-249/B2-249 A Hospital Day: 6 Code Status: Full Code Subjective: Overnight events: No significant overnight events. Patient seen awake at bedside, breathing comfortably in room air. Denies shortness of breath, chest pain, productive cough last night. Denies R shoulder pain. Good appetite. No urinary or bowel movement issues. 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 Admitted last 05/21/25 for sepsis 2/2 MRSA bacteremia and Streptococcus pneumoniae pneumonia, extubated on 05/22/25, and was discharged to SNF on 06/02 with a PICC line for vancomycin until 07/05/25. At SNF, patient noted to be in acute respiratory distress, cyanotic with O2 saturation 69%, tachypneic and tachycardic. Admitted to [facility]. On admission, noted to have hypotensive episodes. Patient met severe sepsis criteria. Cefepime started in addition to Vancomycin. Respiratory PCR (+) for rhinovirus/enterovirus. Lactic acid normal. Hypotension responsive to fluids. On hospital day 2, noted improvement in shortness of breath. Blood culture NG at 48 hours. On hospital day 3, developed generalized maculopapular rash likely Red Man Syndrome. Per ID, discontinue cefepime and administer vancomycin with slow infusion. Geriatric consulted for early dementia. Objective: Vitals: 06/09/25 1751 06/09/25199906/09/25205706/09/25 2314 BP: 99/69 95/62 BP Location: Left arm Patient Position: Sitting Pulse: 77 81 77 72 Resp: 19 18 18 Temp: 37.1 C (98.8 F) TempSrc: Temporal SpO2: 99% 98% 98% Weight: Height: Temp (24hrs), Av.3 C (99.1 F), Min:37.1 C (98.8 F), Max:37.6 C (99.7 F) Intake/Output Summary (Last 24 hours) at 06/10/2025 0907 Last data filed at 06/09/2025 1753 Gross per 24 hour Intake 720 ml Output -- Net 720 ml Physical Exam Constitutional: Appearance: He is not ill-appearing. Cardiovascular: Rate and Rhythm: Normal rate. Rhythm irregular. Heart sounds: No gallop. Pulmonary: Breath sounds: No decreased air movement. Wheezing (both lung diggs) and rhonchi (both lung diggs) present. Comments: Speaks in full sentences Abdominal: General: Bowel sounds are normal. There is no distension. Palpations: Abdomen is soft. Tenderness: There is no abdominal tenderness. Musculoskeletal: Right shoulder: Swelling (mobile, warm) and tenderness (mild) present. No effusion. Decreased range of motion (compared to left shoulder). Left shoulder: Swelling present. No effusion or tenderness. Normal range of motion. Right lower leg: No edema. Left lower leg: No edema. Skin: Capillary Refill: Capillary refill takes less than 2 seconds. Findings: Erythema and rash (face, back, bilateral upper & lower extremities - less erythematous) present. Neurological: Mental Status: He is alert. Polanco: No Drains: No Central Line/Port: PICC line, right brachial vein Intubated: No Diet: Adult diet Regular Medications: Scheduled Meds[1] Continuous Infusions: Continuous Meds[2] PRN Meds: PRN Meds[3] Labs: CBC: Results from last 7 days Lab Units 06/10/2542806/09/2543306/08/250 06/07/25 0547 WBC AUTO 10*3/uL 8.3 7.4 6.5 5.9 HEMOGLOBIN g/dL 11.5* 12.4* 11.9* 9.9* HEMATOCRIT % 33.7* 35.7* 35.7* 29.1* PLATELETS 10*3/uL 148 135* 143 221 NEUTROS PCT AUTO % -- -- -- 73.6 LYMPHO PCT MAN % 2* 10* 3* -- LYMPHS PCT AUTO % -- -- -- 10.6* MONO PCT MAN % 0* 5 2* -- MONOS PCT AUTO % -- -- -- 8.6 EOSINO PCT MAN % 6 3 1 -- EOS PCT AUTO % -- -- -- 5.4 BMP: Results from last 7 days Lab Units 06/10/2542806/09/2543306/08/25 0330 SODIUM mmol/L 134* 132* 132* POTASSIUM mmol/L 3.5 3.7 4.6 CHLORIDE mmol/L 98 95* 94* CO2 mmol/L 27 26 25 BUN mg/dL 26* 29* 28* CREATININE mg/dL 0.84 0.82 0.89 GLUCOSE mg/dL 97 98 122* CALCIUM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 PCP: Toi Davis MD Admitting Physician: Ashley Yang DO Admission Date: 06/03/2025 Admitting Diagnosis: Shortness of breath [R06.02] Hypoxemia [R09.02] COPD exacerbation (HCC) [J44.1] Acute on chronic congestive heart failure, unspecified heart failure type (HCC) [I50.9] [facility]Bed: [facility] Hospital Day: 5 Code Status: Full Code Subjective: Overnight events: No significant overnight events. Patient seen awake at bedside with ex- Melodie. Patient breathing comfortably on room air. Patient notes improvement of pruritus. Denies shortness of breath, chest pain, productive cough. Good appetite. No urinary and bowel movement issues. Per ex-, patient has COPD, asthma, and allergies with chronic rash and pruritus present several months before admission. Notes that patient is on home O2 at 2L. 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 Admitted last 05/21/25 for sepsis 2/2 MRSA bacteremia and Streptococcus pneumoniae pneumonia, extubated on 05/22/25, and was discharged to SNF on 06/02 with a PICC line for vancomycin until 07/05/25. At SNF, patient noted to be in acute respiratory distress, cyanotic with O2 saturation 69%, tachypneic and tachycardic. Admitted to [facility]. On admission, noted to have hypotensive episodes. Patient met severe sepsis criteria. Cefepime started in addition to Vancomycin. Respiratory PCR (+) for rhinovirus/enterovirus. Lactic acid normal. Hypotension responsive to fluids. On hospital day 2, noted improvement in shortness of breath. Blood culture NG at 48 hours. On hospital day 3, developed generalized maculopapular rash likely Red Man Syndrome. Per ID, discontinue cefepime and administer vancomycin with slow infusion. Geriatric consulted for early dementia. Objective: Vitals: 06/09/25 0600 06/09/25 0801 06/09/25 0826 06/09/25 0834 BP: 109/70 BP Location: Right arm Patient Position: Sitting Pulse: 81 73 78 Resp: 18 18 18 Temp: 37.1 C (98.8 F) TempSrc: Temporal SpO2: 92% 95% 95% Weight: 169 lb 6.4 oz (76.8 kg) Height: Temp (24hrs), Av.6 C (97.9 F), Min:36.3 C (97.3 F), Max:37.1 C (98.8 F) Intake/Output Summary (Last 24 hours) at 06/09/2025 0958 Last data filed at 06/09/2025 0900 Gross per 24 hour Intake 837 ml Output -- Net 837 ml Physical Exam Constitutional: Appearance: He is not ill-appearing. Cardiovascular: Rate and Rhythm: Normal rate. Rhythm irregular. Heart sounds: No gallop. Pulmonary: Breath sounds: No decreased air movement. Wheezing (both lung diggs) and rhonchi (both lung diggs) present. Comments: Speaks in full sentences Abdominal: General: Bowel sounds are normal. There is no distension. Palpations: Abdomen is soft. Tenderness: There is no abdominal tenderness. Musculoskeletal: Right shoulder: Effusion and tenderness (warm with mild tenderness at middle area of effusion) present. Decreased range of motion (limited by pain). Left shoulder: No effusion or tenderness. Normal range of motion. Right lower leg: No edema. Left lower leg: No edema. Skin: Capillary Refill: Capillary refill takes less than 2 seconds. Findings: Erythema and rash (face, back, bilateral upper & lower extremities - less erythematous) present. Neurological: Mental Status: He is alert. Polanco: No Drains: No Central Line/Port: PICC line, right brachial vein Intubated: No Diet: Adult diet Regular; No Added Salt (3-4 gm); Low Fat (less than or equal to 50 gm/day); No Carbonated Beverages Medications: Scheduled Meds[1] Continuous Infusions: Continuous Meds[2] PRN Meds: PRN Meds[3] Labs: CBC: Results from last 7 days Lab Units 06/09/2543306/08/2532906/07/25 0547 WBC AUTO 10*3/uL 7.4 6.5 5.9 HEMOGLOBIN g/dL 12.4* 11.9* 9.9* HEMATOCRIT % 35.7* 35.7* 29.1* PLATELETS 10*3/uL 135* 143 221 NEUTROS PCT AUTO % -- -- 73.6 LYMPHO PCT MAN % 10* 3* -- LYMPHS PCT AUTO % -- -- 10.6* MONO PCT MAN % 5 2* -- MONOS PCT AUTO % -- -- 8.6 EOSINO PCT MAN % 3 1 -- EOS PCT AUTO % -- -- 5.4 BMP: Results from last 7 days Lab Units 06/09/2543306/08/2532906/07/25 0547 SODIUM mmol/L 132* 132* 131* POTASSIUM mmol/L 3.7 4.6 4.0 CHLORIDE mmol/L 95* 94* 98 CO2 mmol/L 25 26 BUN mg/dL 29* 28* 26* CREATININE mg/dL 0.82 0.89 0.79 GLUCOSE mg/dL 98 122* 104 CALCIUM mg/dL 8.7* 9.0 8.9 LIVER PROFILE: Results from last 7 days Lab Units 06/09/2543306/08/2532906/07/25 0547 ALK PHOS U/L 88 96 98 BILIRUBIN TOTAL mg/dL 0.4 0.4 0.3 PROTEIN TOTAL g/dL 6.0* 6.4 6.0* ALT U/L 42* 60* 71* AST U/L 16 20 28 PT/INR: Results from last 7 days Lab Units 06/04/25 1059 APTT s 35.2* INR 1.1 CARDIAC ENZYMES: Procalcitonin: No results found for: "PROCAL" Glucose: Results from last 7 days Lab Units 06/09/25 0802 06/08/25 2052 06/08/25 1625 06/08/25 1114 06/08/25 0614 06/07/252021 POCT GLUCOSE mg/dL 82 256* 117* 134* 146* 166* ASSESSMENT/PLAN: Patient Active Problem List Diagnosis Date Noted Shortness of breath 06/04/2025 Heart failure ([facility]) 06/04/2025 Sepsis (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) 11/02/2024 Prolonged QT interval 11/02/2024 Acute hypercapnic respiratory failure ([facility]) 11/01/2024 Acute on chronic systolic (congestive) heart failure ([facility]) 09/16/2024 Moderate malnutrition (CMS/HCC) ([facility]) 09/12/2024 Acute on chronic congestive heart failure, unspecified heart failure type ([facility]) 09/10/2024 Financial difficulties 08/20/2024 Pulmonary HTN ([facility]) 08/19/2024 DELORES on CPAP 04/15/2024 Heavy tobacco smoker 04/15/2024 Cigarette smoker 04/15/2024 Personal history of smoking 04/15/2024 Paroxysmal atrial fibrillation ([facility]) 03/03/2024 Cervical spondylosis 03/02/2024 Non-pressure chronic ulcer of other part of right foot with unspecified severity (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) 02/17/2024 Alcohol abuse with withdrawal, uncomplicated ([facility]) 02/17/2024 Right arm numbness 02/13/2024 Persistent depressive disorder 02/13/2024 DELORES (obstructive sleep apnea) 02/13/2024 Poor compliance with medication 02/13/2024 On continuous oral anticoagulation 11/21/2023 Acute exacerbation of CHF (congestive heart failure) ([facility]) 11/12/2023 Medical non-compliance 11/12/2023 Anemia in other chronic diseases classified elsewhere 01/01/2023 Closed fracture of neck of left humerus with routine healing 12/31/2022 Hyponatremia 12/29/2022 COPD exacerbation (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) 07/17/2022 Permanent atrial fibrillation ([facility]) 08/25/2021 History of rib fracture 08/25/2021 Chronic hyponatremia 08/25/2021 Essential hypertension 08/25/2021 Alcohol consumption heavy 08/25/2021 COPD (chronic obstructive pulmonary disease) ([facility]) 08/25/2021 History of adenomatous polyp of colon 11/18/2019 Diverticulosis of large intestine without diverticulitis 10/27/2019 Compression fracture of thoracic vertebra with routine healing 10/07/2019 Osteoporosis 10/07/2019 Venous stasis dermatitis of left lower extremity 07/17/2017 Current moderate episode of major depressive disorder without prior episode ([facility]) 04/10/2017 Cor, pulmonale, acute ([facility]) 02/01/2016 Raynaud phenomenon 09/10/2015 Early dementia - Geriatric consult Acute on chronic hypoxic respiratory failure 2/2 to rhinovirus - improving Streptococcus pneumoniae pneumonia from previous admission 05/21/25 Respiratory PCR (+) rhinovirus, enterovirus, MRSA PCR (+) - Daily CBC, CMP - ID consult Known MRSA bacteremia Severe sepsis - resolved (+) Severe sepsis criteria on admission, Lactic acid nl Cefepime given 06/04-06/06, dc'd 06/06 Bcx NG at 4 days - Infectious disease following - Continue vancomycin until 07/05 per previous regimen - For PICC line replacement tomorrow 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 - Administer vancomycin slow infusion over 4 hours - Benadryl 25 mg IV prior to vancomycin infusion - Zyrtec 10 mg daily HFimpEF (EF 45%) S/P removal of ICD 05/25/25 in the setting of bacteremia TTE 06/04/25: EF 45%, mildly reduced LV and RV systolic function, mild-moderate TR - Continue home Farxiga 10 mg daily - Continue home Metoprolol succinate 75 mg BID - Continue home Losartan 25 mg daily - Restart home Spironolactone 25 mg daily - Hold home Torsemide 30 mg BID > Restarted 30 mg daily - Strict I/Os - Daily weight COPD Not on home O2 - Continue home Dulera 2 puffs BID and Spiriva 2 puffs daily - Duonebs q4h and PRN - Steroid taper: Prednisone 25 mg BID 06/07-06/08, then Prednisone 20 mg daily 06/08-06/11 - Wean supplemental O2 - Home O2 PRN on discharge - Pulmonology: - Consider triple therapy with Trellegy or Breztri at discharge - PFT outpatient DELORES Pulmonary HTN - Continue home autoBiPAP Atrial fibrillation Hx of DVT and PE - Continue home Eliquis 5 mg BID - Continue home Metoprolol succinate 75 mg BID CAD - Continue home Rosuvastatin 40mg daily Right shoulder effusion Shoulder XR 02/2024: no acute osseous abnormality, degenerative change, retained soft tissue foreign body History of R rotator cuff tear - XR R shoulder - Ortho consult Transaminitis - improving Abdomen US hepatomegaly, Liver doppler US patent blood vessels History of alcohol abuse, last drink > 1 week (-) Hepatitis workup from previous admission - Monitor LFTs - Repeat CMP outpatient Thrombocytopenia PT 12.2 (H), APTT 35.2 (H) - Monitor PLT - Repeat CBC outpatient Chronic hyponatremia Na bl 128-130 - Monitor Na Normocytic anemia Hgb bl 11.5 Ferritin 633 (H), Fe 74 nl, TIBC 200 (L), Fe sat nl - Monitor CBC - FOBT History of alcohol use - Continue thiamine 100 mg daily MDD - Hold home sertraline 100 mg daily in the setting of prolonged Qtc - Start low dose Mirtazapine 15 mg nightly Prolonged QTc Qtc 523 - Avoid Qtc prolonging medications History of Raynaud phenomenon FEN/GI/DVT IVF: None Electrolytes: Monitor and replace per protocols Diet: General GI PPX: No DVT Prophylaxis: No prophylaxis/Already on anticoagulation: Eliquis Telemetry: Currently on Telemetry / Reason: Atrial fibrillation, HFrEF DISPOSITION: PICC line replacement tomorrow, ortho recs [1] apixaban, 5 mg, Oral, BID cetirizine, 10 mg, Oral, Daily chlorhexidine, , Topical, Daily collagenase, , Topical, Daily dapagliflozin, 10 mg, Oral, Daily dextromethorphan-guaiFENesin, 1 tablet, Oral, BID diphenhydrAMINE, 25 mg, IntraVENous, Daily folic acid, 1 mg, Oral, Daily insulin lispro, 0-12 Units, SubCUTAneous, TID WC And insulin lispro, 0-12 Units, SubCUTAneous, Nightly ipratropium-albuterol, 3 mL, Nebulization, q4h losartan, 25 mg, Oral, Daily metoprolol succinate XL, 75 mg, Oral, BID mometasone-formoterol, 2 puff, Inhalation, BID montelukast, 10 mg, Oral, Daily nicotine, 1 patch, TransDERmal, Daily pantoprazole, 40 mg, Oral, Nightly Or pantoprazole (ProtoNix) 40 mg in sodium chloride (PF) 0.9 % 10 mL injection, 40 mg, IntraVENous, Nightly predniSONE, 20 mg, Oral, Daily rosuvastatin, 40 mg, Oral, Daily [Held by provider] sertraline, 100 mg, Oral, Daily sodium chloride 0.9%, 5-40 mL, IntraVENous, q12h sodium chloride, 4 mL, Nebulization, BID spironolactone, 25 mg, Oral, Daily thiamine, 100 mg, Oral, Daily [Held by provider] torsemide, 30 mg, Oral, BID torsemide, 30 mg, Oral, Daily vancomycin, 1,000 mg, IntraVENous, q24h [2] [3] PRN medications: acetaminophen OR acetaminophen, alteplase (Cathflo Activase) 2 mg in sterile water 2 mL injection, ammonium lactate, dextrose, dextrose, glucagon (rDNA), glucose, ipratropium-albuterol, polyethylene glycol (PEG) 3350, promethazine OR promethazine OR promethazine, sodium chloride, sodium chloride 0.9% Images from the original note were not included. Medical Teaching Service Overnight Summary [facility] [address] [facility] [address] Dept: [phone] Loc: [phone] Patient: Krystina Markham : 1955 Acct: [id number] PCP: Toi Davis MD Admitting Physician: Ashley Yang DO Admission Date: 06/03/2025 Admitting Diagnosis: Shortness of breath [R06.02] Hypoxemia [R09.02] COPD exacerbation (HCC) [J44.1] Acute on chronic congestive heart failure, unspecified heart failure type (HCC) [I50.9] [facility]Bed: [facility] A Hospital Day: 5 Code Status: Full Code Pt was monitored throughout the night with bedside rounding. Acute events addressed overnight: None 70 y/o M admitted for acute hypoxia 2/2 COPDe vs. HFimpEFe vs. worsening bacteremia. Further work was negative for worsening bacteremia and pt's cefepime was stopped and his vancomycin was continued. He developed rolan syndrome and benadryl was given. He is to get benadryl before vanc infusions. He lacks capacity, consider guardianship for placement Physical exam notable for: Visit Vitals BP (!) 135/107 (BP Location: Left arm, Patient Position: Sitting) Pulse 76 Temp 36.7 C (98.1 F) (Temporal) Resp 18 Ht 5' 8" (1.727 m) Wt 169 lb 6.4 oz (76.8 kg) SpO2 92% BMI 25.76 kg/m Smoking Status Former BSA 1.92 m Issues requiring daytime follow-up: -consider FOBT if Hgb drops again -home O2 eval Any notable events can be found as significant event notes if needed. Pt handoff was made to day-team with pertinent information for pt's case and care. Electronically signed by Reji Leon MD 6:56 AM 06/09/25 PLEASE NOTE: -THIS CAPACITY ASSESSMENT IS THE RESULT OF THE COMBINATION OF CHART REVIEW AND A SINGLE CONVERSATION WITH THE PATIENT ON THE DATE OF THIS NOTE. -DETERMINING THAT AN INDIVIDUAL HAS CAPACITY IS NOT A GUARANTEE THAT THEY WILL MAKE DECISIONS THAT ARE DEEMED IN THEIR BEST INTEREST. A CAPACITY EVALUATION IS NOT AN ASSESSMENT OF WHETHER OR NOT AN INDIVIDUAL WILLMAKE A DECISION THAT IS FELT TO BE SAFE BY THOSE INVOLVED IN THEIR CARE NOR IS IT AN ASSESSMENT OF WHETHER OR NOT THEY WILL AGREE WITH THEIR HEALTHCARE TEAM. IT IS AN ASSESSMENT OF THEIR ABILITY TO MAKE AN INFORMED DECISION AND IS NOT PREDICATED ON WHAT THEY ULTIMATELY CHOOSE. IF AN INDIVIDUAL WHO HAS BEEN DEEMED TO HAVE CAPACITY TO MAKE A SPECIFIED DECISION SUFFERS ADVERSE OUTCOMES A RESULT OF THEIR CHOICE, THIS SHOULD NOT BE USED EVIDENCE TO IMPLY RETROACTIVELY THAT THEY DID NOT HAVE THE CAPACITY TO MAKE THIS DECISION. STATED ABOVE, THE OUTCOME OF A DECISION, IS NOT THE BASIS OF CAPACITY. -IF THE QUESTION OF CAPACITY ARISES FOR A MEDICAL DECISION THAT IS DIFFERENT THAN THE DECISION STATED BELOW, CAPACITY WILL NEED TO BE REASSESSED FOR THAT SPECIFIC DECISION THIS CAPACITY ASSESSMENT CANNOT BE EXTRAPOLATED TO A NEW DECISION. Capacity is specific to the particular medical decision being made and should NOT be generalized to all medical decisions. Capacity is NOT the same as competence. Capacity is determined by a clinician using a prescribed clinical assessment. Competence is a legal term regarding reasonable rational and factual understanding as determined by a court of law. Clinicians cannot determine competence. All decisions do not carry the same risk to benefit ratio and an individual without capacity for complex medical decision making in one particular circumstance, should NOT be considered to be without capacity for ALL medical decisions. Capacity can pack changer time and a patient should always be reassessed if there is suspicion that their capacity may have changed since the last assessment (i.e.resolution of conditions such as delirium or coma). Please note that capacity must be assessed with each new decision. A patient is deemed to have capacity when they can clearly and consistently communicate a choice, understand all the relevant information, understand the situation and the consequences of treatment options, and reason about the treatment choices. Specific decision in question: Capacity to choose disposition on discharge After extensive discussion with Mr. Markham it is my clinical assessment that he DOES NOT have medical decision making capacity to choose disposition on discharge because he CANNOT: -Clearly and consistently communicate a choice Examples:He reports that he wants to go back home with his ex- and reports that he will figure out how to administer the medication himself.When asked if he know why he is on IV antibiotics, he says he knows because he has been told 200 times however when asked to verbalize the reason he says he does not know if he needs medication. -Understand all the relevant information Examples:Mr. Markham does not know why he in currently admitted in the hospital. He does not understand that he needs IV medication for the treatment of bacteremia. -Understand the situation and the consequences of treatment options Examples:Does not understand current situation and consequence as he does not know why is he hospitalized or why he is on IV medication. -Reason about the treatment choices Examples:Mr. Markham reports that he only wants to go home. No particular reason for declining SNF apart from preference. At this time, Mr. Novoas capacity DOES appear to be impacted by one or more of the following: -Dementia Olya Nunes MD Chip Washer-PGY 2 [id number]] Respiratory Therapy Home O2 Progress Note O2 saturation at rest on room air: 94% If saturation is 88% or less O2 saturation on O2 at 2 LPM while at rest: 95 O2 saturation on exertion must be checked if patient is able regardless of O2 saturation at rest O2 saturation with exertion on room air: 85% (NA if patient needs O2 at rest) O2 saturation on O2 at 2 LPM with exertion: 91% Patient meets criteria for home O2 Y/N = y Patient mobile at home Y/N = y DME Notified y Pt not being discharged today. Going to halfway facility on discharge [facility] - Infectious Diseases Attending Progress Note Subjective: Assuming ID coverage- chart reviewed, readmitted from [facility] with SOB/resp distress and and infecitous workup only + MRSA PCR (already treating for MRSA sepsis) and Resp path PCR+ Rhinovirus- BANQUET CHEF cough. Overall feels better, and denies itching. Steroids given after rash started. Objective: Vitals: Patient Vitals for the past 24 hrs: BP Temp Temp src Pulse Resp SpO2 Weight 06/08/25 1142 -- -- -- 76 16 97 % -- 06/08/25 1120 100/59 36.4 C (97.6 F) Temporal 75 16 95 % -- 06/08/25 0856 118/69 36.6 C (97.9 F) Temporal 75 12 97 % -- 06/08/25 0600 -- -- -- -- -- -- 77.7 kg (171 lb 3.2 oz) 06/08/25 0343 114/60 (!) 35.8 C (96.5 F) Temporal 72 14 100 % -- 06/07/25 2354 -- -- -- 77 -- 96 % -- 06/07/25 2347 125/84 (!) 35.4 C (95.7 F) Temporal 76 14 100 % -- 06/07/25 2345 -- 36 C (96.8 F) Temporal -- 14 -- -- 06/07/25 2121 -- -- -- 50 16 93 % -- 06/07/25 2020 133/68 (!) 35.9 C (96.6 F) Temporal 78 14 97 % -- 06/07/25 1642 124/69 36.7 C (98 F) Temporal 86 20 95 % -- 06/07/25 1613 -- -- -- 74 20 96 % -- Physical Exam Vitals reviewed. Constitutional: General: He is not in acute distress. Appearance: He is ill-appearing (frail, chronically ill looking, but unlabored). HENT: Ears: Comments: Hard of hearing Cardiovascular: Rate and Rhythm: Normal rate and regular rhythm. Heart sounds: No murmur heard. Pulmonary: Effort: Pulmonary effort is normal. No respiratory distress. Breath sounds: No wheezing, rhonchi or rales (dec BS). Abdominal: General: There is no distension. Palpations: Abdomen is soft. Tenderness: There is no abdominal tenderness. Musculoskeletal: General: No swelling. Cervical back: Neck supple. Right lower leg: No edema. Left lower leg: No edema. Skin: Findings: Erythema (muted morbilliform rash to trunk and facial erythrodermal rash) present. Neurological: General: No focal deficit present. Mental Status: He is alert and oriented to person, place, and time. Psychiatric: Mood and Affect: Mood normal. Thought Content: Thought content normal. Labs: Lab Results Component Value Date/Time NA 132 (L) 06/08/2025 033 K 4.6 06/08/2025329 CL 94 (L) 06/08/2025 033 CO2 25 06/08/2025 033 CO2 36 (H) 10/14/2024 1440 BUN 28 (H) 06/08/2025 0330 BUN 20 10/14/2024 1440 CREATININE 0.89 06/08/2025 033 CREATININE 0.60 (L) 10/14/2024 1440 GLUCOSE 122 (H) 06/08/2025 0330 GLUCOSE 110 (H) 10/14/2024 1440 CALCIUM 9.0 06/08/2025 033 CALCIUM 9.9 10/14/2024 1440 PROT 6.4 06/08/2025 033 BILITOT 0.4 06/08/2025 033 ALKPHOS 96 06/08/2025 0330 AST 20 06/08/2025 0330 ALT 60 (H) 06/08/2025 0330 PROCAL 0.35 (H) 06/06/2025 0053 PROCAL 0.44 (H) 06/04/2025 0201 PROCAL 0.51 (H) 05/20/2025 2220 Lab Results Component Value Date/Time WBC 6.5 06/08/2025 0330 HGB 11.9 (L) 06/08/2025 033 HGB 13.0 (L) 06/04/2025 0211 HCT 35.7 (L) 06/08/2025 033 PLT 143 06/08/2025 0330 GRANULOCYTES 70.7 08/25/2021 0504 LYMPHOPCT 3 (L) 06/08/2025 0330 MONOPCT 2 (L) 06/08/2025 0330 LABEOS 3.6 08/25/2021 0504 BASOPCT 1 06/08/2025 0330 NEUTROABS 4.4 06/07/2025 0547 Micro: SA PCR+ MRSA 06/04 BC: neg so far 06/04 Resp PCR: Rhinovirus/Enterovirus 06/04 4 plex Viral PCR: neg Lines: PICC looks benign Radiography/Echo/Other: CTA Chest IMPRESSION: 1. Negative for acute pulmonary embolus. 2. The RV/LV ratio is <1. This is considered normal*. 3. Persistent, albeit improved consolidation near the posterior left lung base. 4. Additional chronic findings as above. Antimicrobials, Start/End Dates: Vancomycin ( slowing infusion rate in case form Red Man syndrome) Cefepime 09/04-06/06 Impression: 70 M , initially admitted to [facility] on 05/22 with MRSA sepsis, presumed LRTI source, and given ICD requiring replacement, planned 6 weks IV course. Readmitted with resp distress but unremarkable workup, only Rhinovirus infection this time. HAP coverage dc'd already and clinically back to baseline. Rash may instead be from Cefeoime rather than Red man syndrome form Vancomycin. For now continue same antibiotic. If rash persists, or worsens, will switch to Daptomycin. Steroids per Primary team. Overall HD stable, improving. Plan: As above, will follow. OPAT order to 07/05 as before. MTS Attending Note Patient: Krystina Markham Date of : 1955 Admitting Diagnosis: Shortness of breath [R06.02] Hypoxemia [R09.02] COPD exacerbation (HCC) [J44.1] Acute on chronic congestive heart failure, unspecified heart failure type (HCC) [I50.9] Admit Date: 06/03/2025 Hospital Day: 4 Case discussed with residents, documentation, diagnostic studies and consults reviewed. History: Chief Complaint Patient presents with Shortness of Breath Pt brought in by EMS for SOB from [facility]. Pt currently recently diagnosed with pneumonia receiving IV vancomycin. HX of COPD and CHF. Overnight events: none Pmhx HfimpEF, COPD, afib, home o2 2L, DELORES, hyponatremia, MDD, ETOH/tob use, hx ICD Subjective: Patient sitting up on side of bed. States feeling well, "wants to get out of here soon". Tolerating p.o. well. Drinking coffee now. BM reported "just had one" Denies chest pain or cough. Denies itching to me but admitted to this to residents. [facility] does not use home O2, however noted in chart Objective: BP 118/69 (BP Location: Left arm, Patient Position: Sitting) Pulse 75 Temp 36.6 C (97.9 F) (Temporal) Resp 12 Ht 5' 8" (1.727 m) Wt 171 lb 3.2 oz (77.7 kg) SpO2 97% BMI 26.03 kg/m Temp (24hrs), Av.2 C (97.1 F), Min:35.4 C (95.7 F), Max:36.7 C (98 F) Intake/Output Summary (Last 24 hours) at 06/08/2025 1101 Last data filed at 06/08/2025 0850 Gross per 24 hour Intake 780 ml Output -- Net 780 ml Supplemental O2: O2 Flow Rate (L/min): 4 L/min Currently has no O2 on. General appearance: Pt in no acute distress. Cooperative with exam. Sitting up at side of bed. HEENT: no scleral icterus , moist mucous membranes Respiratory: wheezing noted however no resp distress and breathing easier Cardiovascular: Irreg, distant sounds Abdomen: Soft, +BS Musculoskeletal: No edema bilaterally. Several amputations of the left fingers Skin: bruising noted UE, macular raised erythematous rash is improved and less erythematous. No acrocyanosis currently Neurologic: Awake and alert, moving all 4 extremities. Still confused. [facility] year 2024, no sure of month, season is spring and can't name president. CBC: Recent Labs 06/06/25 0053 06/07/25 0547 06/08/25 0330 WBC 7.1 5.9 6.5 RBC 3.82* 3.34* 4.08* HGB 11.5* 9.9* 11.9* HCT 33.8* 29.1* 35.7* MCV 88.5 87.1 87.5 RDW 13.2 13.1 13.2 PLT 236 221 143 No components found for: "LABA1C" CARDIAC ENZYMES: No results for input(s): "TROPONINI" in the last 72 hours. Procalcitonin: Lab Results Component Value Date PROCAL 0.35 (H) 06/06/2025 BMP: Recent Labs 06/06/253 06/07/2547 06/08/25 0330 NA 129* 131* 132* K 5.0 4.0 4.6 CL 95* 98 94* CO2 21* 26 25 BUN 29* 26* 28* CREATININE 0.92 0.79 0.89 GLUCOSE 178* 104 122* CALCIUM 9.2 8.9 9.0 ANIONGAP 13 7 13 LIVER PROFILE: Recent Labs 06/06/255206/07/2547 06/08/25 0330 AST 40* 28 20 ALT 103* 71* 60* BILITOT 0.3 0.3 0.4 ALKPHOS 105 98 96 PROT 6.9 6.0* 6.4 Lab Results Component Value Date IRON 74 06/06/2025 TIBC 200 (L) 06/06/2025 FERRITIN 633 (H) 06/06/2025 Vitamin B12 598 Blood cultures no growth x 48 hours Resp PCR +rhino/entero A1C 6 BNP 10,402 MRSA by PCR positive, MEC a positive Legionella/strep negative CBC shows no eosinophils this a.m. however does show 12 bands Had EEG 10/2024: The findings are consistent with a LEFT wasavebb-se-pts quadrant cortical irritability superimposed on mild global cerebral dysfunction nonspecific as to etiology. No seizure activity. CT head 05/20/2025: Probable chronic ischemic and atrophic changes. MRI brain 02/2024: No acute intracranial abnormalities. Generalized brain parenchymal volume loss and moderate chronic microvascular ischemic changes in the supratentorial white matter. CT chest angiogram w and/or wo IV contrast Pulmonary Arteries: There are no filling defects within the pulmonary arterial system to suggest pulmonary embolus. There is prominence of the main pulmonary arteries, which can be seen in the setting of pulmonary arterial hypertension. Cardiovascular: The heart is enlarged. Atherosclerotic vascular calcifications are present in the aortic arch and coronary arteries. Lungs: Moderate to severe centrilobular and paraseptal emphysema is seen. There is also dependent and bibasilar scarring/atelectasis. Persistent, albeit improved consolidation near the posterior left lung base. Impression: 1. Negative for acute pulmonary embolus. 2. The RV/LV ratio is <1. This is considered normal*. 3. Persistent, albeit improved consolidation near the posterior left lung base. 4. Additional chronic findings as above. ECG 12 lead Atrial fibrillation Ventricular premature complex Left bundle branch block XR chest 1 view Other findings: None. Impression: 1. Right arm PICC is looped in the right axillary region (only partially imaged). 2. Cardiomegaly. ECG 12 lead Atrial fibrillation Left bundle branch block No significant change from prior. Artifact noted. Occasional PVC Electronically Signed On 06-04-2025 00:32:08 EDT by Reese Stafford Summary of singh issues: Acute on chronic respiratory failure with known MRSA bacteremia undergoing current treatment with vanc (last day scheduled 07/05/25). Now with entero/rhinovirus. Septic on admission. Con't spacing steroid dose Per ID discontinue Cefapime as blood cultures neg. Con't vac for MRSA bacteremia treatment. Blood cultures negative x 4 days Unable to produce sputum culture Continue duonebs Home O2 eval prior to discharge Leukocytosis improved however bandemia worsened-will notify ID through resident Rash (new)-likely red man syndrome from vancomycin Discussed with ID--> to give over prolonged period of 4 hrs. 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 Auto bipap Steroids Home O2 prior to discharge Prolonged QTC Hold prolonging meds Will recheck, if persists will discontinue zoloft and determine if antidepressant med still needed Persistant hyponatremia Consider nephro consult Pulm HTN/DELORES/cardiomegaly CAD/afib/post ICD removal Con't holding spironolactone, Con't anticoagulation Transaminitis-improving Restart statin at this time, MDD Hold sertraline in setting of hyponatremia; may need to consider alternative ?wellbutrin Had EEG 10/2024: The findings are consistent with a LEFT pwzyvnmb-pk-ofh quadrant cortical irritability superimposed on mild global cerebral dysfunction nonspecific as to etiology. No seizure activity. CT head 05/20/2025: Probable chronic ischemic and atrophic changes. MRI brain 02/2024: No acute intracranial abnormalities. Generalized brain parenchymal volume loss and moderate chronic microvascular ischemic changes in the supratentorial white matter. Hx raynaud pneumonia Anemia/stable-monitor Alcohol use-continue thiamine Debility-anticipating discharge to SNF. CM consulted. Memory/thinking and judgement issues, per CT chronic ischemic and atrophic changes. Suspect dementia. Consider geriatrics/neuro consult outpatient Dispo: Continue antibiotics, anticipating discharge to SNF. CM consulted. See resident's note for additional details. Images from the original note were not included. Medical Teaching Service Progress Note Patient: Krystina Markham : 1955 Acct: [id number] PCP: Toi Davis MD Admitting Physician: Ashley Yang DO Admission Date: 06/03/2025 Admitting Diagnosis: Shortness of breath [R06.02] Hypoxemia [R09.02] COPD exacerbation (HCC) [J44.1] Acute on chronic congestive heart failure, unspecified heart failure type (HCC) [I50.9] Unit/Bed: B2-249/B2-249 A Hospital Day: 4 Code Status: Full Code Subjective: Overnight events: No significant overnight events. Hospital Course Patient Patient is a 70 y.o. male with PmHx of COPD, HFimpEF, Afib s/p ICD extraction 05/25, MRSA bacteremia PNA, medication noncompliance, chronic hyponatremia, transaminates, LBBB, alcoholism (last drink over a week ago), PE, DELORES, Raynaud's phenomenon. He presented via ambulance from [facility] for acute-onset SOB. Of note, patient was recently hospitalized at [facility] (05/20-06/02) for septic shock 2/2 MRSA bacteremia and LLL PNA 2/2 strep pneumo requiring intubation and ICU level care. He was discharged to [facility] with PICC line for vancomycin to end 07/05. Upon presentation, patient in acute respiratory distress, cyanotic with O2 sat 69%, tachycardic and tachypneic. Upon admission to [facility], noted to have hypotensive episodes responsive to fluids, met severe sepsis criteria. Cefepime started in addition to vancomycin. Respiratory PCR + for rhinovirus/enterovirus. Lactic acid normal. Blood culture no growth at 48 hours. Cefepime discontinued, vancomycin infusion slowed with concern for Red Man Syndrome. On exam this AM, patient resting comfortably on RA. Face still erythematous with noted improvement compared to yesterday's examinations. Patient states he still has some itching, though improved compared to yesterday. He states his breathing feels the same. Denies cough, chest pain, fever, chills, difficulty swallowing. Objective: Vitals: 06/07/25 2347 06/07/25 2354 06/08/25 0343 06/08/25 0600 BP: 125/84 114/60 BP Location: Left arm Left arm Patient Position: Sitting Sitting Pulse: 76 77 72 Resp: 14 14 Temp: (!) 35.4 C (95.7 F) (!) 35.8 C (96.5 F) TempSrc: Temporal Temporal SpO2: 100% 96% 100% Weight: 171 lb 3.2 oz (77.7 kg) Height: Temp (24hrs), Av.1 C (96.9 F), Min:35.4 C (95.7 F), Max:36.7 C (98 F) Intake/Output Summary (Last 24 hours) at 06/08/2025 0853 Last data filed at 06/07/2025 1500 Gross per 24 hour Intake 1260 ml Output -- Net 1260 ml Physical Exam Constitutional: General: He is not in acute distress. Appearance: He is obese. He is not ill-appearing or toxic-appearing. HENT: Head: Normocephalic and atraumatic. Nose: Nose normal. Cardiovascular: Rate and Rhythm: Normal rate. Rhythm irregular. Heart sounds: Normal heart sounds. No murmur heard. No friction rub. No gallop. Pulmonary: Effort: Pulmonary effort is normal. No respiratory distress. Breath sounds: No stridor. Wheezing and rhonchi present. No rales. Chest: Chest wall: No tenderness. Abdominal: General: Abdomen is flat. Bowel sounds are normal. Palpations: Abdomen is soft. Tenderness: There is no abdominal tenderness. There is no guarding. Musculoskeletal: Right lower leg: No edema. Left lower leg: No edema. Skin: General: Skin is warm and dry. Capillary Refill: Capillary refill takes less than 2 seconds. Findings: Erythema and rash present. Neurological: Mental Status: He is alert. Comments: Oriented to self and place, not time Polanco: No Drains: No Central Line/Port: No Intubated: No Diet: Adult diet Regular; No Added Salt (3-4 gm); Low Fat (less than or equal to 50 gm/day); No Carbonated Beverages Medications: Scheduled Meds[1] Continuous Infusions: Continuous Meds[2] PRN Meds: PRN Meds[3] Labs: CBC: Results from last 7 days Lab Units 06/08/25 0330 06/07/25 0547 06/06/25 0053 06/04/25 0020 06/02/25 0014 WBC AUTO 10*3/uL 6.5 5.9 7.1 < > 9.1 HEMOGLOBIN g/dL 11.9* 9.9* 11.5* < > 10.9* HEMOGLOBIN BG -- -- -- < > -- HEMATOCRIT % 35.7* 29.1* 33.8* < > 31.7* PLATELETS 10*3/uL 143 221 236 < > 362 NEUTROS PCT AUTO % -- 73.6 -- -- 74.4 LYMPHO PCT MAN % 3* -- 5* < > -- LYMPHS PCT AUTO % -- 10.6* -- -- 9.8* MONO PCT MAN % 2* -- 0* < > -- MONOS PCT AUTO % -- 8.6 -- -- 12.0 EOSINO PCT MAN % 1 -- 1 -- -- EOS PCT AUTO % -- 5.4 -- -- 1.7 < > = values in this interval not displayed. BMP: Results from last 7 days Lab Units 06/08/25 0330 06/07/25 0547 06/06/25 0053 SODIUM mmol/L 132* 131* 129* POTASSIUM mmol/L 4.6 4.0 5.0 CHLORIDE mmol/L 94* 98 95* CO2 mmol/L 25 26 21* BUN mg/dL 28* 26* 29* CREATININE mg/dL 0.89 0.79 0.92 GLUCOSE mg/dL 122* 104 178* CALCIUM mg/dL 9.0 8.9 9.2 LIVER PROFILE: Results from last 7 days Lab Units 06/08/25 0330 06/07/25 0547 06/06/25 0053 ALK PHOS U/L 96 98 105 BILIRUBIN TOTAL mg/dL 0.4 0.3 0.3 PROTEIN TOTAL g/dL 6.4 6.0* 6.9 ALT U/L 60* 71* 103* AST U/L 20 28 40* PT/INR: Results from last 7 days Lab Units 06/04/25 1059 APTT s 35.2* INR 1.1 CARDIAC ENZYMES: Procalcitonin: Lab Results Component Value Date PROCAL 0.35 (H) 06/06/2025 Glucose: Results from last 7 days Lab Units 06/08/25 0614 06/07/25 2022 06/07/25 1638 06/07/25 1127 06/07/25 0607 06/06/25 1933 POCT GLUCOSE mg/dL 146* 166* 207* 91 109* 198* ASSESSMENT/PLAN: Patient Active Problem List Diagnosis Date Noted Shortness of breath 06/04/2025 Heart failure (HCC) 06/04/2025 Sepsis (HCC) 06/04/2025 MRSA bacteremia 06/04/2025 Transaminitis 06/04/2025 Encounter for removal of cardiac resynchronization therapy defibrillator (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) 09/16/2024 Moderate malnutrition (CMS/HCC) ([facility]) 09/12/2024 Acute on chronic congestive heart failure, unspecified heart failure type ([facility]) 09/10/2024 Financial difficulties 08/20/2024 Pulmonary HTN ([facility]) 08/19/2024 DELORES on CPAP 04/15/2024 Heavy tobacco smoker 04/15/2024 Cigarette smoker 04/15/2024 Personal history of smoking 04/15/2024 Paroxysmal atrial fibrillation ([facility]) 03/03/2024 Cervical spondylosis 03/02/2024 Non-pressure chronic ulcer of other part of right foot with unspecified severity (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) 02/17/2024 Alcohol abuse with withdrawal, uncomplicated ([facility]) 02/17/2024 Right arm numbness 02/13/2024 Persistent depressive disorder 02/13/2024 DELORES (obstructive sleep apnea) 02/13/2024 Poor compliance with medication 02/13/2024 On continuous oral anticoagulation 11/21/2023 Acute exacerbation of CHF (congestive heart failure) ([facility]) 11/12/2023 Medical non-compliance 11/12/2023 Anemia in other chronic diseases classified elsewhere 01/01/2023 Closed fracture of neck of left humerus with routine healing 12/31/2022 Hyponatremia 12/29/2022 COPD exacerbation (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) 07/17/2022 Permanent atrial fibrillation ([facility]) 08/25/2021 History of rib fracture 08/25/2021 Chronic hyponatremia 08/25/2021 Essential hypertension 08/25/2021 Alcohol consumption heavy 08/25/2021 COPD (chronic obstructive pulmonary disease) ([facility]) 08/25/2021 History of adenomatous polyp of colon 11/18/2019 Diverticulosis of large intestine without diverticulitis 10/27/2019 Compression fracture of thoracic vertebra with routine healing 10/07/2019 Osteoporosis 10/07/2019 Venous stasis dermatitis of left lower extremity 07/17/2017 Current moderate episode of major depressive disorder without prior episode ([facility]) 04/10/2017 Cor, pulmonale, acute ([facility]) 02/01/2016 Raynaud phenomenon 09/10/2015 Acute on Chronic Hypoxic Respiratory Failure meeting sepsis criteria COPDe 2/2 Rhinovirus/Enterovirus Denies home O2 use, Supposed to be on 2L - Continue home dulera 2 puffs BID and Spiriva 2 puffs daily - Duonebs q4h and PRN - Prednisone 20 mg po daily, continue to taper steroids - Plan to discharge on home spiriva and dulera per pulmonology - Home O2 eval prior to discharge - Outpatient PFTs - Pulmonology consulted, appreciate recs HFimpEF S/P removal of ICD 05/25/25 in setting of bacteremia TTE 06/04/25: EF 45%, mildly reduced LV and RV systolic function, mild-moderate TR - Continue Farxiga 10 mg daily - Continue home metoprolol succinate 75 mg BID - Resume home torsemide 30 mg daily - Resume home spironolactone 25 mg daily - Hold home Losartan 25 mg daily - Strict I/O - Daily weights Recent MRSA bacteremia Maculopapular rash, Facial erythema potentially Red Man Syndrome - Continue vancomycin with tentative end date of 07/05, infusion slowed - Cefepime Discontinued - Zyrtec 10 mg daily for pruritus - Benadryl IV 25 mg before vancomycin infusions - Emollient for pruritus - ID following, appreciate recs Hyperglycemia Likely in setting of steroid use A1c (06/04/25) 6.0 - Medium dose sliding scale insulin - Continue to monitor Transaminitis- improving Abdomen US 06/01/25: hepatomegaly, liver doppler US patent blood vessels Hx of alcohol abuse, last drink >1 week ago Negative hepatitis workup from previous admission - Resume home rosuvastatin 40 mg daily - Monitor LFTs Atrial Fibrillation Hx of DVT and PE - Continue home Eliquis 5 mg BID - Continue home metoprolol succinate 75 mg BID Chronic Hyponatremia Baseline 128-130 - Monitor Na Normocytic Anemia Baseline Hgb 11.5 - Iron normal, increased ferritin potentially an acute phase reactant - Follow up hemoccult for Hgb 9.9 from 11.5 - Monitor CBC Prolonged Qtc Qtc 528 06/06/25 - Avoid Qtc prolonging medications - Repeat EKG before discharge MDD - Hold home sertraline 100 mg daily in setting of prolonged QTc CAD - Resume home Rosuvastatin 40 mg daily in setting of transaminitis DELORES Pulmonary HTN - Continue home auto BiPAP Hx of Raynaud Phenomenon FEN/GI/DVT IVF: None Electrolytes: Monitor and replace per protocols Diet: General GI PPX: No DVT Prophylaxis: No prophylaxis/Already on anticoagulation: Eliquis Telemetry: Currently on Telemetry / Reason: Afib, HFrEF DISPOSITION: Pending ID recommendations, plan to DC to [facility] [1] apixaban, 5 mg, Oral, BID cetirizine, 10 mg, Oral, Daily chlorhexidine, , Topical, Daily collagenase, , Topical, Daily dapagliflozin, 10 mg, Oral, Daily dextromethorphan-guaiFENesin, 1 tablet, Oral, BID diphenhydrAMINE, 25 mg, IntraVENous, Daily folic acid, 1 mg, Oral, Daily [Held by provider] furosemide, 40 mg, IntraVENous, BID insulin lispro, 0-12 Units, SubCUTAneous, TID WC And insulin lispro, 0-12 Units, SubCUTAneous, Nightly ipratropium-albuterol, 3 mL, Nebulization, q4h losartan, 25 mg, Oral, Daily metoprolol succinate XL, 75 mg, Oral, BID mometasone-formoterol, 2 puff, Inhalation, BID montelukast, 10 mg, Oral, Daily nicotine, 1 patch, TransDERmal, Daily pantoprazole, 40 mg, Oral, Nightly Or pantoprazole (ProtoNix) 40 mg in sodium chloride (PF) 0.9 % 10 mL injection, 40 mg, IntraVENous, Nightly predniSONE, 20 mg, Oral, Daily [Held by provider] rosuvastatin, 40 mg, Oral, Daily [Held by provider] sertraline, 100 mg, Oral, Daily sodium chloride 0.9%, 5-40 mL, IntraVENous, q12h sodium chloride, 4 mL, Nebulization, BID [Held by provider] spironolactone, 25 mg, Oral, Daily thiamine, 100 mg, Oral, Daily torsemide, 20 mg, Oral, Daily [Held by provider] torsemide, 30 mg, Oral, BID vancomycin, 1,000 mg, IntraVENous, q24h [2] [3] PRN medications: acetaminophen OR acetaminophen, alteplase (Cathflo Activase) 2 mg in sterile water 2 mL injection, ammonium lactate, dextrose, dextrose, glucagon (rDNA), glucose, ipratropium-albuterol, polyethylene glycol (PEG) 3350, promethazine OR promethazine OR promethazine, sodium chloride, sodium chloride 0.9% Cosigned by Ashley Yang DO at 06/08/2025 3:45 PM EDT Images from the original note were not included. OCCUPATIONAL THERAPY [facility] Treatment Note Name/MRN: Krystina Markham ([id number]) Date of : 1955 Age: 70 y.o. Room/Bed: B2249/[facility]249 A Visit #: 1 out of 3 Discharge Recommendation: Home with Home health OT, Home with assist PRN Assessment Pt is progressing with OT POC, meeting goal for toileting with Mod I, and making steady progress with transfers, balance, and functional mobility. Pt remains limited by endurance and will benefit from continued OT services to increase indep and safety in ADLs and functional mobility for DC. Recommending [facility] OT at [place]. Subjective Pt sitting EOB upon arrival, pleasant and cooperative, agreeable to OT tx. Pt sitting in recliner at EOS. Pain: Pt denies any current pain. Medical Precautions: Droplet Proper PPE donned/doffed in accordance with facility standards. Fall Risk: Landin Fall Risk Score: 100 (High Risk) Precautions/Restrictions: Lines/Drains/Airways: PICC line, 4L O2 NC Family/Caregiver Present: none Objective ADLs Toileting: Modified Independent Grooming: Modified Independent Pt completing toileting tasks with Mod I at this time for pericare and clothing management. Pt washing hands, face, performing oral hygiene at sink with Mod I for increased time and effort. Good balance and safety noted throughout functional tasks. Transfers/Mobility Sit to stand: Supervision Stand to sit: Supervision Toilet: Modified Independent Standing balance: Modified Independent Functional mobility: Supervision, SBA Pt requiring SUP, progressing to Mod I for functional STS from EOB/chair/toilet this date without use of device at this time, pt demos good hand placement. Pt requiring SBA, progressing to SUP for functional mobility with IV pole within room at this time, no LOB noted. Device(s) used: IV Pole Plan Continue acute OT per plan of care. Safety/Education Safety Safety Devices in place: All fall risk precautions in place, call light within reach, left in chair, gait belt, patient at risk for falls, and no alarms engaged upon entry Restraints: No Education Education Given To: patient Education Provided: OT Role, Plan of Care, ADL Adaptive Strategies, Transfer Training, Fall Prevention Education, Discharge Recommendations, and Benefits of Increasing Activity Education Method: Verbal, Demonstration, and Teach Back Barriers to Learning: None Education Outcome: Verbalized Understanding, Demonstrated Understanding, and Continued Education Needed AM-PAC AM-PAC Inpatient Daily Activity Raw Score: 21 ADL Inpatient CMS G-Code Modifier: CJ Goals Patient Stated Goal: to go home Encounter Problems Encounter Problems (Active) Balance Patient will maintain dynamic standing balance for 8 minutes with modified independence in order to demonstrate decreased risk of falling. (Progressing) Start: 06/04/25 Expected End: 06/11/25 Dressing Upper Extremities Patient will complete upper body dressing Mod I (Not Addressed) Start: 06/04/25 Expected End: 06/11/25 Dressings Lower Extremities Patient will dress lower body Mod I (Not Addressed) Start: 06/04/25 Expected End: 06/11/25 Mobility Patient will demonstrate functional mobility with LRD and Mod I (Progressing) Start: 06/04/25 Expected End: 06/11/25 Transfers Patient will complete functional transfer with least restrictive device with modified independence in order to prepare for functional mobility. (Progressing) Start: 06/04/25 Expected End: 06/11/25 Encounter Problems (Resolved) Toileting Patient will complete toileting tasks at standard toilet with modified independence. (Goal Met) Start: 06/04/25 Expected End: 06/11/25 Resolved: 06/08/25 Therapy Time Individual Co-treatment Time In 0741 Time Out 0806 Minutes 25 Timed Code Treatment Minutes: 23 Minutes (1ADL, 1TherACT) Dominga Walls OT Images from the original note were not included. [facility] Teaching Service Overnight Summary [facility] PCU [address] [facility] [address] Dept: [phone] Loc: [phone] Patient: Krystina Markham : 1955 Acct: [id number] PCP: Toi Davis MD Admitting Physician: Ashley Yang DO Admission Date: 06/03/2025 Admitting Diagnosis: Shortness of breath [R06.02] Hypoxemia [R09.02] COPD exacerbation (HCC) [J44.1] Acute on chronic congestive heart failure, unspecified heart failure type (HCC) [I50.9] Unit[facility]Bed: [facility] A Hospital Day: 4 Code Status: Full Code Pt was monitored throughout the night with bedside rounding. Acute events addressed overnight: None 70 y/o M admitted for acute hypoxia 2/2 COPDe vs. HFimpEFe vs. worsening bacteremia. Further work was negative for worsening bacteremia and pt's cefepime was stopped and his vancomycin was continued. He developed rolan syndrome and benadryl was given. He is to get benadryl before vanc infusions. Physical exam notable for: Visit Vitals BP 114/60 (BP Location: Left arm, Patient Position: Sitting) Pulse 72 Temp (!) 35.8 C (96.5 F) (Temporal) Resp 14 Ht 5' 8" (1.727 m) Wt 171 lb 3.2 oz (77.7 kg) SpO2 100% BMI 26.03 kg/m Smoking Status Former BSA 1.93 m Issues requiring daytime follow-up: -consider FOBT if Hgb drops again -home O2 eval Any notable events can be found as significant event notes if needed. Pt handoff was made to day-team with pertinent information for pt's case and care. Electronically signed by Reji Leon MD 6:24 AM 06/08/25 Images from the original note were not included. Medical Teaching Service Progress Note Patient: Krystina Markham : 1955 Acct: [id number] PCP: Toi Davis MD Admitting Physician: Ashley Yang DO Admission Date: 06/03/2025 Admitting Diagnosis: Shortness of breath [R06.02] Hypoxemia [R09.02] COPD exacerbation (HCC) [J44.1] Acute on chronic congestive heart failure, unspecified heart failure type (HCC) [I50.9] Unit/Bed: B2-249/B2-249 A Hospital Day: 4 Code Status: Full Code Subjective: Overnight events: No significant overnight events. Patient seen awake at bedside, breathing comfortably on room air. Patient notes improvement of pruritus. Denies shortness of breath, chest pain, productive cough. Good appetite. No urinary issues. Able to have a bowel movement this morning. 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 Admitted last 05/21/25 for sepsis 2/2 MRSA bacteremia and Streptococcus pneumoniae pneumonia, extubated on 05/22/25, and was discharged to SNF on 06/02 with a PICC line for vancomycin until 07/05/25. At SNF, patient noted to be in acute respiratory distress, cyanotic with O2 saturation 69%, tachypneic and tachycardic. Admitted to [facility]. On admission, noted to have hypotensive episodes. Patient met severe sepsis criteria. Cefepime started in addition to Vancomycin. Respiratory PCR (+) for rhinovirus/enterovirus. Lactic acid normal. Hypotension responsive to fluids. On hospital day 2, noted improvement in shortness of breath. Blood culture NG at 48 hours. On hospital day 3, developed generalized maculopapular rash likely Red Man Syndrome. Per ID, discontinue cefepime and administer vancomycin with slow infusion. Objective: Vitals: 06/08/25 0600 06/08/25 0856 06/08/25 1120 06/08/25 1142 BP: 118/69 100/59 BP Location: Left arm Left arm Patient Position: Sitting Sitting Pulse: 75 75 76 Resp: 12 16 16 Temp: 36.6 C (97.9 F) 36.4 C (97.6 F) TempSrc: Temporal Temporal SpO2: 97% 95% 97% Weight: 171 lb 3.2 oz (77.7 kg) Height: Temp (24hrs), Av.1 C (97 F), Min:35.4 C (95.7 F), Max:36.7 C (98 F) Intake/Output Summary (Last 24 hours) at 06/08/2025 1240 Last data filed at 06/08/2025 0850 Gross per 24 hour Intake 780 ml Output -- Net 780 ml Physical Exam Constitutional: Appearance: He is not ill-appearing. Cardiovascular: Rate and Rhythm: Normal rate. Rhythm irregular. Heart sounds: No gallop. Pulmonary: Breath sounds: No decreased air movement. Wheezing (both lung diggs) and rhonchi (both lung diggs) present. Comments: Speaks in full sentences Abdominal: General: Bowel sounds are normal. There is no distension. Palpations: Abdomen is soft. Tenderness: There is no abdominal tenderness. Musculoskeletal: Right lower leg: No edema. Left lower leg: No edema. Skin: Capillary Refill: Capillary refill takes less than 2 seconds. Findings: Erythema and rash (face, back, bilateral upper & lower extremities - less erythematous) present. Neurological: Mental Status: He is alert. Polanco: No Drains: No Central Line/Port: PICC line, right brachial vein Intubated: No Diet: Adult diet Regular; No Added Salt (3-4 gm); Low Fat (less than or equal to 50 gm/day); No Carbonated Beverages Medications: Scheduled Meds[1] Continuous Infusions: Continuous Meds[2] PRN Meds: PRN Meds[3] Labs: CBC: Results from last 7 days Lab Units 06/08/25 0330 06/07/25 0547 06/06/25 0053 06/04/25 0020 06/02/25 0014 WBC AUTO 10*3/uL 6.5 5.9 7.1 < > 9.1 HEMOGLOBIN g/dL 11.9* 9.9* 11.5* < > 10.9* HEMOGLOBIN BG -- -- -- < > -- HEMATOCRIT % 35.7* 29.1* 33.8* < > 31.7* PLATELETS 10*3/uL 143 221 236 < > 362 NEUTROS PCT AUTO % -- 73.6 -- -- 74.4 LYMPHO PCT MAN % 3* -- 5* < > -- LYMPHS PCT AUTO % -- 10.6* -- -- 9.8* MONO PCT MAN % 2* -- 0* < > -- MONOS PCT AUTO % -- 8.6 -- -- 12.0 EOSINO PCT MAN % 1 -- 1 -- -- EOS PCT AUTO % -- 5.4 -- -- 1.7 < > = values in this interval not displayed. BMP: Results from last 7 days Lab Units 06/08/25 0330 06/07/25 0547 06/06/25 0053 SODIUM mmol/L 132* 131* 129* POTASSIUM mmol/L 4.6 4.0 5.0 CHLORIDE mmol/L 94* 98 95* CO2 mmol/L 25 26 21* BUN mg/dL 28* 26* 29* CREATININE mg/dL 0.89 0.79 0.92 GLUCOSE mg/dL 122* 104 178* CALCIUM mg/dL 9.0 8.9 9.2 LIVER PROFILE: Results from last 7 days Lab Units 06/08/25 0330 06/07/25 0547 06/06/25 0053 ALK PHOS U/L 96 98 105 BILIRUBIN TOTAL mg/dL 0.4 0.3 0.3 PROTEIN TOTAL g/dL 6.4 6.0* 6.9 ALT U/L 60* 71* 103* AST U/L 20 28 40* PT/INR: Results from last 7 days Lab Units 06/04/25 1059 APTT s 35.2* INR 1.1 CARDIAC ENZYMES: Procalcitonin: Lab Results Component Value Date PROCAL 0.35 (H) 06/06/2025 Glucose: Results from last 7 days Lab Units 06/08/25 1114 06/08/25 0614 06/07/25202106/07/25 1638 06/07/25 1127 06/07/25 0607 POCT GLUCOSE mg/dL 134* 146* 166* 207* 91 109* ASSESSMENT/PLAN: Patient Active Problem List Diagnosis Date Noted Shortness of breath 06/04/2025 Heart failure ([facility]) 06/04/2025 Sepsis (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) 11/02/2024 Prolonged QT interval 11/02/2024 Acute hypercapnic respiratory failure ([facility]) 11/01/2024 Acute on chronic systolic (congestive) heart failure ([facility]) 09/16/2024 Moderate malnutrition (CMS/HCC) ([facility]) 09/12/2024 Acute on chronic congestive heart failure, unspecified heart failure type ([facility]) 09/10/2024 Financial difficulties 08/20/2024 Pulmonary HTN ([facility]) 08/19/2024 DELORES on CPAP 04/15/2024 Heavy tobacco smoker 04/15/2024 Cigarette smoker 04/15/2024 Personal history of smoking 04/15/2024 Paroxysmal atrial fibrillation ([facility]) 03/03/2024 Cervical spondylosis 03/02/2024 Non-pressure chronic ulcer of other part of right foot with unspecified severity (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) 02/17/2024 Alcohol abuse with withdrawal, uncomplicated ([facility]) 02/17/2024 Right arm numbness 02/13/2024 Persistent depressive disorder 02/13/2024 DELORES (obstructive sleep apnea) 02/13/2024 Poor compliance with medication 02/13/2024 On continuous oral anticoagulation 11/21/2023 Acute exacerbation of CHF (congestive heart failure) ([facility]) 11/12/2023 Medical non-compliance 11/12/2023 Anemia in other chronic diseases classified elsewhere 01/01/2023 Closed fracture of neck of left humerus with routine healing 12/31/2022 Hyponatremia 12/29/2022 COPD exacerbation (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) 07/17/2022 Permanent atrial fibrillation ([facility]) 08/25/2021 History of rib fracture 08/25/2021 Chronic hyponatremia 08/25/2021 Essential hypertension 08/25/2021 Alcohol consumption heavy 08/25/2021 COPD (chronic obstructive pulmonary disease) ([facility]) 08/25/2021 History of adenomatous polyp of colon 11/18/2019 Diverticulosis of large intestine without diverticulitis 10/27/2019 Compression fracture of thoracic vertebra with routine healing 10/07/2019 Osteoporosis 10/07/2019 Venous stasis dermatitis of left lower extremity 07/17/2017 Current moderate episode of major depressive disorder without prior episode ([facility]) 04/10/2017 Cor, pulmonale, acute (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 - Administer vancomycin slow infusion over 4 hours - Benadryl 25 mg IV prior to vancomycin infusion - Zyrtec 10 mg daily HFimpEF (EF 45%) S/P removal of ICD 05/25/25 in the setting of bacteremia TTE 06/04/25: EF 45%, mildly reduced LV and RV systolic function, mild-moderate TR - Continue home Farxiga 10 mg daily - Continue home Metoprolol succinate 75 mg BID - Continue home Losartan 25 mg daily - Restart home Spironolactone 25 mg daily - Hold home Torsemide 30 mg BID > Restarted 30 mg daily - Strict I/Os - Daily weight COPD Not on home O2 - Continue home Dulera 2 puffs BID and Spiriva 2 puffs daily - Duonebs q4h and PRN - Steroid taper: Prednisone 25 mg BID 06/07-06/08, then Prednisone 20 mg daily 06/08-06/11 - Wean supplemental O2 - Home O2 evaluation prior to discharge - Pulmonology: - Consider triple therapy with Trellegy or Breztri at discharge - PFT outpatient DELORES Pulmonary HTN - Continue home autoBiPAP Atrial fibrillation Hx of DVT and PE - Continue home Eliquis 5 mg BID - Continue home Metoprolol succinate 75 mg BID CAD - Restart home Rosuvastatin 40mg daily Transaminitis - improving Abdomen US hepatomegaly, Liver doppler US patent blood vessels History of alcohol abuse, last drink > 1 week (-) Hepatitis workup from previous admission - Monitor LFTs Chronic hyponatremia Na bl 128-130 - Monitor Na Normocytic anemia Hgb bl 11.5 Ferritin 633 (H), Fe 74 nl, TIBC 200 (L), Fe sat nl - Monitor CBC - FOBT History of alcohol use - Continue thiamine 100 mg daily MDD - Hold home sertraline 100 mg daily in the setting of prolonged Qtc - consider restarting or switching to another medication Prolonged QTc Qtc 528 - Avoid Qtc prolonging medications - Repeat EKG History of Raynaud phenomenon FEN/GI/DVT IVF: None Electrolytes: Monitor and replace per protocols Diet: General GI PPX: No DVT Prophylaxis: No prophylaxis/Already on anticoagulation: Eliquis Telemetry: Currently on Telemetry / Reason: Atrial fibrillation, HFrEF DISPOSITION: Monitor rash and respiratory symptoms, home O2 eval prior to discharge, ID recs [1] apixaban, 5 mg, Oral, BID cetirizine, 10 mg, Oral, Daily chlorhexidine, , Topical, Daily collagenase, , Topical, Daily dapagliflozin, 10 mg, Oral, Daily dextromethorphan-guaiFENesin, 1 tablet, Oral, BID diphenhydrAMINE, 25 mg, IntraVENous, Daily folic acid, 1 mg, Oral, Daily insulin lispro, 0-12 Units, SubCUTAneous, TID WC And insulin lispro, 0-12 Units, SubCUTAneous, Nightly ipratropium-albuterol, 3 mL, Nebulization, q4h losartan, 25 mg, Oral, Daily metoprolol succinate XL, 75 mg, Oral, BID mometasone-formoterol, 2 puff, Inhalation, BID montelukast, 10 mg, Oral, Daily nicotine, 1 patch, TransDERmal, Daily pantoprazole, 40 mg, Oral, Nightly Or pantoprazole (ProtoNix) 40 mg in sodium chloride (PF) 0.9 % 10 mL injection, 40 mg, IntraVENous, Nightly [START ON 06/09/2025] predniSONE, 20 mg, Oral, Daily rosuvastatin, 40 mg, Oral, Daily [Held by provider] sertraline, 100 mg, Oral, Daily sodium chloride 0.9%, 5-40 mL, IntraVENous, q12h sodium chloride, 4 mL, Nebulization, BID spironolactone, 25 mg, Oral, Daily thiamine, 100 mg, Oral, Daily [Held by provider] torsemide, 30 mg, Oral, BID [START ON 06/09/2025] torsemide, 30 mg, Oral, Daily vancomycin, 1,000 mg, IntraVENous, q24h [2] [3] PRN medications: acetaminophen OR acetaminophen, alteplase (Cathflo Activase) 2 mg in sterile water 2 mL injection, ammonium lactate, dextrose, dextrose, glucagon (rDNA), glucose, ipratropium-albuterol, polyethylene glycol (PEG) 3350, promethazine OR promethazine OR promethazine, sodium chloride, sodium chloride 0.9% Images from the original note were not included. [facility] [facility] [address] [place] [id number] Patient - Krystina Markham, Age - 70 y.o. - 1955 Room Number - B2-249/B2-249 A Consulting - Charlie Westfall MD Primary Care Physician - Toi Davis MD [facility] # - [id number] Date of Admission - 06/03/2025 11:55 PM Hospital Day - 3 Chief Complaint: Shortness of breath Krystina Markham is a 70 y.o. male who pulmonary is following for COPD AE. Subjective/Interval History: Patient awake lying in the bed. Denied any shortness of breath at rest, cough, chest pain, fever or chills. Currently on 3 liters NC. Reports he has oxygen at home but doesn't use regularly. Declined PAP last night. A pertinent review of systems was performed and was otherwise non-contributory except as detailed in Subjective section above. Objective: Vitals: BP 123/79 (BP Location: Left arm, Patient Position: Sitting) Pulse (!) 42 Temp 36.7 C (98 F) (Temporal) Resp 20 Ht 5' 8" (1.727 m) Wt 171 lb 2 oz (77.6 kg) SpO2 (!) 78% BMI 26.02 kg/m Pulse Ox: SpO2 Av.4 % Min: 78 % Max: 99 % Supplemental O2: 3 liters NC. I/O 24HR INTAKE/OUTPUT: Intake/Output Summary (Last 24 hours) at 06/07/2025 1152 Last data filed at 06/07/2025 0900 Gross per 24 hour Intake 1290 ml Output 450 ml Net 840 ml Physical Exam: Physical Exam Vitals and nursing note reviewed. Constitutional: General: He is not in acute distress. HENT: Nose: No congestion or rhinorrhea. Eyes: General: No scleral icterus. Cardiovascular: Rate and Rhythm: Normal rate. Rhythm irregular. Pulmonary: Effort: No respiratory distress. Breath sounds: No stridor. Wheezing present. No rhonchi or rales. Chest: Chest wall: No tenderness. Skin: Findings: Rash present. Neurological: Mental Status: He is alert and oriented to person, place, and time. Mental status is at baseline. Psychiatric: Mood and Affect: Mood normal. Behavior: Behavior normal. Medications: Allergies[1] Current Medications[2] PRN Meds[3] Labs: CBC: Recent Labs 06/05/25 0303 06/06/25 0053 06/07/25 0547 WBC 7.1 7.1 5.9 HGB 11.2* 11.5* 9.9* HCT 33.4* 33.8* 29.1* PLT 259 236 221 MCV 88.4 88.5 87.1 RDW 13.2 13.2 13.1 BMP: Recent Labs 06/05/25 0303 06/06/25 0053 06/07/25 0547 NA 132* 129* 131* K 4.6 5.0 4.0 CL 97* 95* 98 CO2 23 21* 26 BUN 30* 29* 26* CREATININE 1.08 0.92 0.79 CALCIUM 9.1 9.2 8.9 MG 2.1 -- -- LFTs: Recent Labs 06/05/25 0303 06/06/253 06/07/25 0547 AST 53* 40* 28 ALT 118* 103* 71* PROT 6.8 6.9 6.0* ALBUMIN 2.9* 3.0* 2.7* BILITOT 0.3 0.3 0.3 ALKPHOS 91 105 98 Glucose: Recent Labs 06/05/25 0303 06/05/25 0630 06/05/25 2023 06/06/25 0053 06/06/25 0844 06/06/25 1153 06/06/25 1636 06/06/25 1933 06/07/25 0547 06/07/25 0607 06/07/25 1127 GLUCOSE 180* -- -- 178* -- -- -- -- 104 -- -- POCGLU -- 199* 254* -- 299* 227* 98 198* -- 109* 91 Procal: Recent Labs 06/06/253 PROCAL 0.35* Microbiology: COVID/Flu/RSV: Negative Respiratory pathogens PCR: + Human Rhinovirus/ Enterovirus Blood cultures: NGTD MRSA PCR: + MRSA Imaging/ Testing: CXR 06/04/25: FINDINGS: Lines/support devices: Cardiac leads project over the chest, somewhat limiting evaluation. Right arm PICC is noted with its distal tip near the SVC. This is looped in the right axillary region (only partially imaged). Cardiomediastinal silhouette: The heart is borderline enlarged. Lungs/pleura: Interstitial coarsening is present. No focal consolidation, pleural effusion or pneumothorax. Osseous structures: Degenerative changes of the spine and shoulders are seen. No acute osseous abnormality is demonstrated. Remote deformity of the left humeral head/neck is seen. Bones are osteopenic. Other findings: None. IMPRESSION: 1. Right arm PICC is looped in the right axillary region (only partially imaged). 2. Cardiomegaly. CTA chest 06/04/25: IMPRESSION: 1. Negative for acute pulmonary embolus. 2. The RV/LV ratio is <1. This is considered normal*. 3. Persistent, albeit improved consolidation near the posterior left lung base. 4. Additional chronic findings as above. Problem List[4] Assessment and Plan/Recommendations: Acute on chronic hypoxic respiratory failure Recent MRSA bacteremia and Strep pneumonia COPD AE + HRV infection Hx DELORES, non compliant with PAP HFrEF, Atrial fibrillation, on Eliquis Pulmonary hypertension Tobacco use disorder Acute respiratory failure secondary to pneumonia, COPD and rhinovirus infection. Respiratory status improving. Weaned down to 3 liters NC. Continue to wean FiO2 as patient tolerates. Goal SpO2 88-92%. Patient reports he has oxygen at home (2 LMP) but does not wear regularly. ID following. Continue vancomycin with slow infusion through 07/05. Continue Dulera, scheduled DuoNeb's. Resume home Spiriva + Dulera at discharge. Recommend PFT's outpatient to assess for decline in FEV1. Last PFT's from 2019 with moderate airway obstruction. Wheezing noted on exam this morning. Okay to continue with prednisone taper Declined AutoBiPAP last night. Patient already has PAP at home but is non compliant. Continues to smoke 0.5 PPD (> 25 pack year history). Counseled on importance of smoking cessation today with patient at the bedside. Advised to quit smoking completely. Tried Chantix in the past. Continue currently NRT. Consult smoking cessation coordinator. Qualifies for annual CT screening. PT/OT recommending SNF Advance Directive: Full Code Discharge planning: Anticipate return to [facility] once cleared by ID and primary team. Stable from pulmonary standpoint. Case discussed with nurse and patient Questions and concerns addressed. COPD Discharge Checklist Established patient Outpatient Pulmonary provider: Dr. Tarcey Reviewed Managing COPD at Home worksheet: Yes Active smoker? Yes NRT? Yes Smoking Cessation Coordinator consult: Yes Pulmonary Rehabilitation Phase 1 consult: No Patient declined pulmonary rehab at this time. Planning for SNF COPD Navigator consult: Yes Medications: LAMA: Yes Spiriva ICS/LABA: Dulera Rescue inhaler: Yes Home Nebulizer: Yes Nebulizer solution: Yes Albuterol Steroids: taper Antibiotics: Yes Home O2? Yes Has O2 at home but is not compliant with wearing regularly Baseline liter flow: 2 Home PAP therapy? Yes non compliant. Unsure if patient has CPAP vs BiPAP at home. Hypercapnia? No Discharge disposition: SNF 7-day hospital follow up in COPD Clinic: PRIYA Hodgson CNP Outpatient testing/therapy recommendations: PFT's, smoking cessation, annual CT chest [1] No Known Allergies [2] Current Facility-Administered Medications: acetaminophen (Tylenol) tablet 650 mg, 650 mg, Oral, q6h PRN OR acetaminophen (Tylenol) suppository 650 mg, 650 mg, Rectal, q6h PRN, Reji Leon MD alteplase (Cathflo Activase) 2 mg in sterile water 2 mL injection, 2 mg, IntraCATHeter, PRN, Ivan Connolly MD, 2 mg at 06/05/25 0121 ammonium lactate (Lac-Hydrin) 12 % lotion, , Topical, PRN, Mayda Shankar MD apixaban (Eliquis) tablet 5 mg, 5 mg, Oral, BID, Reji Leon MD, 5 mg at 06/07/25 0854 cetirizine (ZyrTEC) tablet 10 mg, 10 mg, Oral, Daily, Zita Rene MD, 10 mg at 06/07/25 1109 chlorhexidine (Hibiclens) 4 % solution, , Topical, Daily, Reji Leon MD, Given at 06/06/25 2129 collagenase 250 UNIT/GM ointment, , Topical, Daily, Reji Leon MD, 1 Application at 06/07/25 0858 dapagliflozin (Farxiga) tablet 10 mg, 10 mg, Oral, Daily, Reji Leon MD, 10 mg at 06/07/25 0854 dextromethorphan-guaiFENesin (Mucinex DM) 30-600 MG per 12 hr tablet 1 tablet, 1 tablet, Oral, BID, Reji Leon MD, 1 tablet at 06/07/25 0854 dextrose 5 % infusion, 100 mL/hr, IntraVENous, PRN, Reji Leon MD dextrose 50 % solution 12.5 g, 12.5 g, IntraVENous, PRN, Reji Leon MD diphenhydrAMINE (BENADryl) injection 25 mg, 25 mg, IntraVENous, Daily, Mayda Shankar MD, 25 mg at 06/07/25 1109 folic acid (Folvite) tablet 1 mg, 1 mg, Oral, Daily, Reji Leon MD, 1 mg at 06/07/25 0854 [Held by provider] furosemide (Lasix) injection 40 mg, 40 mg, IntraVENous, BID, Reji Leon MD glucagon (human recombinant) injection 1 mg, 1 mg, IntraMUSCular, PRN, Reji Leon MD glucose oral gel 15 g, 15 g, Oral, PRN, Reji Leon MD Insulin Lispro (Humalog) injection 0-12 Units, 0-12 Units, SubCUTAneous, TID WC, 2 Units at 06/06/25 1403 AND Insulin Lispro (Humalog) injection 0-12 Units, 0-12 Units, SubCUTAneous, Nightly, Mayda Shankar MD, 2 Units at 06/06/25 2128 ipratropium-albuterol (Duo-Neb) 0.5-2.5 mg/3 mL nebulizer solution 3 mL, 3 mL, Nebulization, 4x daily PRN, Reji Leon MD ipratropium-albuterol (Duo-Neb) 0.5-2.5 mg/3 mL nebulizer solution 3 mL, 3 mL, Nebulization, q4h, Mayda Shankar MD, 3 mL at 06/07/25 1146 losartan (Cozaar) tablet 25 mg, 25 mg, Oral, Daily, Mayda Shankar MD metoprolol succinate XL (Toprol-XL) 24 hr tablet 75 mg, 75 mg, Oral, BID, Mayda Shankar MD, 75 mg at 06/07/25 0854 mometasone-formoterol (Dulera 200) 200-5 MCG/ACT inhaler 2 puff, 2 puff, Inhalation, BID, Reji Leon MD, 2 puff at 06/07/25 0854 montelukast (Singulair) tablet 10 mg, 10 mg, Oral, Daily, Reji Leon MD, 10 mg at 06/07/25 0854 nicotine (Nicoderm, Step 2) 14 MG/24HR patch 1 patch, 1 patch, TransDERmal, Daily, Reji Leon MD, 1 patch at 06/07/25 0854 pantoprazole (ProtoNix) EC tablet 40 mg, 40 mg, Oral, Nightly, 40 mg at 06/05/252032 OR pantoprazole (ProtoNix) 40 mg in sodium chloride (PF) 0.9 % 10 mL injection, 40 mg, IntraVENous, Nightly, Reji Leon MD, 40 mg at 06/06/252126 polyethylene glycol (PEG) 3350 (Miralax) packet 17 g, 17 g, Oral, Daily PRN, Reji Leon MD predniSONE (Deltasone) tablet 25 mg, 25 mg, Oral, BID, 25 mg at 06/07/25853 FOLLOWED BY [START ON 06/08/2025] predniSONE (Deltasone) tablet 20 mg, 20 mg, Oral, Daily, Ivan Connolly MD promethazine (Phenergan) tablet 25 mg, 25 mg, Oral, q6h PRN OR promethazine (Phenergan) suppository 25 mg, 25 mg, Rectal, q12h PRN OR promethazine (Phenergan) injection 25 mg, 25 mg, IntraMUSCular, q4h PRN, Reji Leno MD [Held by provider] rosuvastatin (Crestor) tablet 40 mg, 40 mg, Oral, Daily, Reji Leon MD [Held by provider] sertraline (Zoloft) tablet 100 mg, 100 mg, Oral, Daily, Reji Leon MD sodium chloride 0.9 % infusion, 5-250 mL/hr, IntraVENous, PRN, Reji Leon MD sodium chloride 0.9% (NS) flush 5-40 mL, 5-40 mL, IntraVENous, q12h, Reji Leon MD, 10 mL at 06/07/25 0430 sodium chloride 0.9% (NS) flush 5-40 mL, 5-40 mL, IntraVENous, PRN, Reji Leon MD sodium chloride 3 % hypertonic nebulizer solution 4 mL, 4 mL, Nebulization, BID, Reji Leon MD, 4 mL at 06/07/25 0838 [Held by provider] spironolactone (Aldactone) tablet 25 mg, 25 mg, Oral, Daily, Reji Leon MD, 25 mg at 06/04/25 0953 thiamine (Vitamin B1) tablet 100 mg, 100 mg, Oral, Daily, Reji Leon MD, 100 mg at 06/07/25 0854 torsemide (Demadex) tablet 20 mg, 20 mg, Oral, Daily, Mayda Shankar MD, 20 mg at 06/07/25 0854 [Held by provider] torsemide (Demadex) tablet 30 mg, 30 mg, Oral, BID, Reji Leon MD vancomycin (Vancocin) 1,000 mg in sodium chloride 0.9 % 250 mL IVPB (Vial Mate), 1,000 mg, IntraVENous, q24h, Reji Leon MD, 1,000 mg at 06/07/25 0430 [3] PRN medications: acetaminophen OR acetaminophen, alteplase (Cathflo Activase) 2 mg in sterile water 2 mL injection, ammonium lactate, dextrose, dextrose, glucagon (rDNA), glucose, ipratropium-albuterol, polyethylene glycol (PEG) 3350, promethazine OR promethazine OR promethazine, sodium chloride, sodium chloride 0.9% [4] Patient Active Problem List Diagnosis Permanent atrial fibrillation ([facility]) History of rib fracture Cor, pulmonale, acute ([facility]) Chronic hyponatremia Essential hypertension Compression fracture of thoracic vertebra with routine healing Osteoporosis Diverticulosis of large intestine without diverticulitis History of adenomatous polyp of colon Raynaud phenomenon Alcohol consumption heavy COPD (chronic obstructive pulmonary disease) ([facility]) Venous stasis dermatitis of left lower extremity Current moderate episode of major depressive disorder without prior episode ([facility]) Chest pain, unspecified type Heart failure with improved ejection fraction (HFimpEF) ([facility]) Hypochloremia Tobacco abuse Presence of cardiac resynchronization therapy defibrillator (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) Alcohol abuse, continuous COPD exacerbation ([facility]) Hyponatremia Closed fracture of neck of left humerus with routine healing Anemia in other chronic diseases classified elsewhere Acute exacerbation of CHF (congestive heart failure) (HCC) Medical non-compliance On continuous oral anticoagulation Right arm numbness Persistent depressive disorder DELORES (obstructive sleep apnea) Poor compliance with medication Non-pressure chronic ulcer of other part of right foot with unspecified severity (HCC) Diabetes due to undrl condition w oth diabetic neuro comp (HCC) Alcohol abuse with withdrawal, uncomplicated (HCC) Cervical spondylosis Paroxysmal atrial fibrillation (HCC) DELORES on CPAP Heavy tobacco smoker Cigarette smoker Personal history of smoking Pulmonary HTN (HCC) Financial difficulties Acute on chronic congestive heart failure, unspecified heart failure type (HCC) Moderate malnutrition (CMS/HCC) (HCC) Acute on chronic systolic (congestive) heart failure (HCC) Acute hypercapnic respiratory failure (HCC) Acute on chronic respiratory failure with hypoxia and hypercapnia (HCC) Prolonged QT interval EEG abnormality without seizure Requires continuous at home supplemental oxygen Acute metabolic encephalopathy Bacteremia Bloodstream infection Encounter for removal of cardiac resynchronization therapy defibrillator (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) Elevated LFTs Shortness of breath Heart failure (HCC) Sepsis (HCC) MRSA bacteremia Transaminitis Images from the original note were not included. PHYSICAL THERAPY [facility] Treatment Note Name/MRN: Krystina Markham ([id number]) Date of : 1955 Age: 70 y.o. Room/Bed: B2249/B2249 A Visit #: 1 out of 5 visits Discharge Recommendation: [facility] Facility Assessment Pt demonstrates small improvements with functional mobility but requires assist with awareness and management of O2 and IV while mobilizing. Pt demonstrates drop in SpO2 with mobility with pt stating nursing removed O2 (per nursing he removes). Close by assist needed for balance and safety with limited mobility. Pt will continue to benefit from current recommendation to improve safety, activity tolerance and independence of mobility Subjective Pt agreeable to therapy secondary to need to use BR. Pt reports nursing removed nasal canula Observation PIV intact, nasal canula not in usage. Vitals Ambulated to BR with SpO2 80% without O2. Reapplied while sitting with return to 95% with monitoring on ear. Pain: Pt denies any current pain. Medical Precautions: Droplet Proper PPE donned/doffed in accordance with facility standards. Fall Risk: Landin Fall Risk Score: 100 (High Risk) Precautions/Restrictions: Lines/Drains/Airways: 3L O2 Fall Precautions Overall Cognitive Status: Exceptions - Safety judgement: decreased awareness of need for assistance and decreased awareness of need for safety - Problem solving: assistance required to identify errors made and assistance required to correct errors made - Insights: decreased awareness of deficits Overall Orientation Status: Oriented x4 Family/Caregiver Present: none Objective Transfers/Mobility Sit to stand: Supervision Stand to sit: Supervision Pt demonstrated a controlled transition with good hand placement but decreased awareness of lines Device(s) used: None Ambulation Ambulation 1 Assistive device(s) used: None Assist level: SBA Distance (ft): 20' x 2 Quality of gait: Pt walks with a reciprocal pattern with decreased stride length and slight increase in lateral sway. No direct balance loss but fatigue with distance and declining to participate further with activity Balance During Session: Posture: good Sitting - Static: Independent Sitting - Dynamic: Independent Standing - Static: SBA Standing - Dynamic: SBA Pt demonstrated ability to maintain stance to complete clothing management as well as hand hygiene with SBA for safety. Plan Continue acute PT per plan of care. Safety/Education Safety Safety Devices in place: All fall risk precautions in place, call light within reach, nurse notified, and patient left sitting EOB Restraints: No Education Education Given To: patient Education Provided: PT Role, PT Goals, Gait Training, Plan of Care, and Transfer Training Education Method: Verbal, Demonstration, and Teach Back Barriers to Learning: Cognition Education Outcome: Continued Education Needed Outcome Measures AM-PAC AM-PAC Inpatient Mobility Raw Score (No Stairs) : 11 JH-HLM JH-HLM Scale: Walked 10 steps or more (i.e. walked to restroom) Goals Patient Stated Goal: None stated Encounter Problems Encounter Problems (Active) Balance Patient will maintain dynamic standing balance for 3 minutes with modified independence in order to demonstrate decreased risk of falling. (Progressing) Start: 06/04/25 Expected End: 06/11/25 Exercise Patient will complete lower extremity exercises for 1-2 sets / 5-10 reps in order to improve strength and activity tolerance for mobility. (Not Addressed) Start: 06/04/25 Expected End: 06/11/25 Mobility Patient will ambulate 150 feet with modified independence and least restrictive device in order to improve safety and independence with mobility. (Progressing) Start: 06/04/25 Expected End: 06/11/25 Transfers Patient will perform bed mobility with modified independence in order to improve independence and prepare for out of bed mobility. (Not Addressed) Start: 06/04/25 Expected End: 06/11/25 Patient will complete sit to stand transfer with modified independence to LRD in order to improve safety and prepare for out of bed mobility. (Progressing) Start: 06/04/25 Expected End: 06/11/25 Therapy Time Individual Co-treatment Time In 1045 Time Out 1110 Minutes 25 Timed Code Treatment Minutes: 10 Minutes (ther act) Natalie Montejo PTA Cosigned by Amaris Cao, PT at 06/07/2025 4:09 PM EDT Images from the original note were not included. OCCUPATIONAL THERAPY [facility] Name/MRN: Krystina Markham ([id number]) Date: 06/07/2025 Treatment is being deferred at present because pt very cantankerous with therapist . Pt stating "you therapists always come in when I am eating." Pt with NO food tray or snacks on tray, explained to pt why therapy is needed and confusion as pt was not eating. Pt responded, "Never mind, you guys always come in when I am eating and I am tired of it." Unable to encourage/ gain clarification at pt was not eating. No tx completed. FRANCHESKA Crane Cosigned by Dominga Walls OT at 06/07/2025 10:20 AM EDT [facility] Attending Note Patient: Krystina Markham Date of : 1955 Admitting Diagnosis: Shortness of breath [R06.02] Hypoxemia [R09.02] COPD exacerbation (HCC) [J44.1] Acute on chronic congestive heart failure, unspecified heart failure type (HCC) [I50.9] Admit Date: 06/03/2025 Hospital Day: 3 Case discussed with residents, documentation, diagnostic studies and consults reviewed. History: Chief Complaint Patient presents with Shortness of Breath Pt brought in by EMS for SOB from [facility]. Pt currently recently diagnosed with pneumonia receiving IV vancomycin. HX of COPD and CHF. Overnight events: none Pmhx HfimpEF, COPD, afib, home o2 2L, DELORES, hyponatremia, MDD, ETOH/tob use, hx ICD Overnight: declined bipap Subjective: Patient feeling at his baseline with chronic shortness of breath. States he "wheezes every day." Tolerating p.o. well. BM 06/06/2025 Denies chest pain or cough. Denies itching to me but admitted to this to residents. [facility] does not use home O2, however noted in chart Objective: BP 119/70 (BP Location: Left arm, Patient Position: Lying) Pulse 58 Temp 37.2 C (99 F) (Temporal) Resp 20 Ht 5' 8" (1.727 m) Wt 171 lb 2 oz (77.6 kg) SpO2 96% BMI 26.02 kg/m Temp (24hrs), Av.7 C (98.1 F), Min:36.1 C (96.9 F), Max:37.2 C (99 F) Intake/Output Summary (Last 24 hours) at 06/07/2025 0929 Last data filed at 06/07/2025 0511 Gross per 24 hour Intake 750 ml Output 450 ml Net 300 ml Supplemental O2: O2 Flow Rate (L/min): 3 L/min General appearance: Pt ill appearing, face upper extremities chest and back and now this am lower extremities are red with raised macular rash (see media). Sitting up at side of bed. HEENT: no scleral icterus , moist mucous membranes Respiratory: Rhonchi and wheezing throughout, use of abdominal muscles for breathing, able to speak in full sentences and appears more comfortable to me today Cardiovascular: Irreg, distant sounds Abdomen: Soft, non-tender Musculoskeletal: No edema bilaterally. Several amputations of the left fingers Skin: bruising noted UE, abrasion on chest wall, macular raised erythematous rash of chest back, upper extremities, lower extremities, palms. +Acrocyanosis on digit 3 and 4right (hx raynaulds) Neurologic: Awake and alert, moving all 4 extremities CBC: Recent Labs 06/05/2530206/06/255206/07/25 0547 WBC 7.1 7.1 5.9 RBC 3.78* 3.82* 3.34* HGB 11.2* 11.5* 9.9* HCT 33.4* 33.8* 29.1* MCV 88.4 88.5 87.1 RDW 13.2 13.2 13.1 PLT 259 236 221 No components found for: "LABA1C" CARDIAC ENZYMES: No results for input(s): "TROPONINI" in the last 72 hours. Procalcitonin: Lab Results Component Value Date PROCAL 0.35 (H) 06/06/2025 BMP: Recent Labs 06/05/2530206/06/255206/07/25 05 NA 132* 129* 131* K 4.6 5.0 4.0 CL 97* 95* 98 CO2 23 21* 26 BUN 30* 29* 26* CREATININE 1.08 0.92 0.79 GLUCOSE 180* 178* 104 CALCIUM 9.1 9.2 8.9 ANIONGAP 12 13 7 LIVER PROFILE: Recent Labs 06/05/2530206/06/255206/07/25 0547 AST 53* 40* 28 ALT 118* 103* 71* BILITOT 0.3 0.3 0.3 ALKPHOS 91 105 98 PROT 6.8 6.9 6.0* Lab Results Component Value Date IRON 74 06/06/2025 TIBC 200 (L) 06/06/2025 FERRITIN 633 (H) 06/06/2025 Vitamin B12 598 Blood cultures no growth x 48 hours Resp PCR +rhino/entero A1C 6 BNP 10,402 MRSA by PCR positive, MEC a positive Legionella/strep negative CBC shows no eosinophils this a.m. however does show [address] chest angiogram w and/or wo IV contrast Pulmonary Arteries: There are no filling defects within the pulmonary arterial system to suggest pulmonary embolus. There is prominence of the main pulmonary arteries, which can be seen in the setting of pulmonary arterial hypertension. Cardiovascular: The heart is enlarged. Atherosclerotic vascular calcifications are present in the aortic arch and coronary arteries. Lungs: Moderate to severe centrilobular and paraseptal emphysema is seen. There is also dependent and bibasilar scarring/atelectasis. Persistent, albeit improved consolidation near the posterior left lung base. Impression: 1. Negative for acute pulmonary embolus. 2. The RV/LV ratio is <1. This is considered normal*. 3. Persistent, albeit improved consolidation near the posterior left lung base. 4. Additional chronic findings as above. ECG 12 lead Atrial fibrillation Ventricular premature complex Left bundle branch block XR chest 1 view Other findings: None. Impression: 1. Right arm PICC is looped in the right axillary region (only partially imaged). 2. Cardiomegaly. ECG 12 lead Atrial fibrillation Left bundle branch block No significant change from prior. Artifact noted. Occasional PVC Electronically Signed On 06-04-2025 00:32:08 EDT by Reese Stafford Summary of singh issues: Acute on chronic respiratory failure with known MRSA bacteremia undergoing current treatment with vanc (last day scheduled 07/05/25). Now with entero/rhinovirus. Septic on admission. Con't spacing steroid dose Per ID discontinue Cefapime as blood cultures neg. Con't vac for MRSA bacteremia treatment. Blood cultures negative x 72 hours Unable to produce sputum culture Continue duonebs Home O2 eval prior to discharge Rash (new)-likely red man syndrome from vancomycin Discussed with ID--> to give over prolonged period of 4 hrs. Will also premedicate with antihistamin/Benadryl Add daily antihistamine daily (non sedating for itching/Zyrtec) Hyperglycemia likely due to steroids (last A1c this admission 6.0) Cover with sliding scale insulin PRN HFrEF Intermittent lasix dosing restart lower Demadex dose Restart beta amira/ARB On Farxiga/SGLT2 Con't to hold spironolactone COPDe/emphysema-uses home o2?? Auto bipap Steroids Home O2 prior to discharge Prolonged QTC Hold prolonging meds Will recheck Persistant hyponatremia Consider nephro consult Pulm HTN/DELORES/cardiomegaly CAD/afib/post ICD removal Con't holding spironolactone, otherwise restrt GDMT Con't anticoagulation Transaminitis-improving Holding statin at this time, anticipate may be able to restart at discharge MDD Hold sertraline in setting of hyponatremia; may need to consider alternative ?wellbutrin Had EEG 10/2024: The findings are consistent with a LEFT qpcvbgyw-kf-jle quadrant cortical irritability superimposed on mild global cerebral dysfunction nonspecific as to etiology. No seizure activity. CT head 05/20/2025: Probable chronic ischemic and atrophic changes. MRI brain 02/2024: No acute intracranial abnormalities. Generalized brain parenchymal volume loss and moderate chronic microvascular ischemic changes in the supratentorial white matter. Hx raynaud pneumonia Anemia/stable-monitor, will check iron studies Alcohol use-continue thiamine Debility-anticipating discharge to SNF. CM consulted. Dispo: Continue antibiotics, anticipating discharge to SNF. CM consulted. See resident's note for additional details. Images from the original note were not included. Medical Teaching Service Progress Note Patient: Krystina Markham : 1955 Acct: [id number] PCP: Toi Davis MD Admitting Physician: Ashley Yang DO Admission Date: 06/03/2025 Admitting Diagnosis: Shortness of breath [R06.02] Hypoxemia [R09.02] COPD exacerbation (HCC) [J44.1] Acute on chronic congestive heart failure, unspecified heart failure type (HCC) [I50.9] Unit/Bed: B2-249/B2-249 A Hospital Day: 3 Code Status: Full Code Subjective: Overnight events: No significant overnight events. Hospital Course Patient Patient is a 70 y.o. male with PmHx of COPD, HFimpEF, Afib s/p ICD extraction 9/23, MRSA bacteremia PNA, medication noncompliance, chronic hyponatremia, transaminates, LBBB, alcoholism (last drink over a week ago), PE, DELORES, Raynaud's phenomenon. He presented via ambulance from SNF for acute-onset SOB. Of note, patient was recently hospitalized at [facility] (05/20-06/02) for septic shock 2/2 MRSA bacteremia and LLL PNA 2/2 strep pneumo requiring intubation and ICU level care. He was discharged to SNF with PICC line for vancomycin to end 07/05. Upon presentation, patient in acute respiratory distress, cyanotic with O2 sat 69%, tachycardic and tachypneic. Upon admission to [facility], noted to have hypotensive episodes responsive to fluids, met severe sepsis criteria. Cefepime started in addition to vancomycin. Respiratory PCR + for rhinovirus/enterovirus. Lactic acid normal. Blood culture no growth at 48 hours. Cefepime discontinued, vancomycin infusion slowed with concern for Red Man Syndrome. On exam this AM, on 4L NC with some abdominal breathing, able to speak in full sentences. Face is still erythematous without significant change from examination yesterday. Maculopapular rash still present on bilateral lower extremities, hands, arms, chest, and back. Patient states rash has started to itch. Skin was noticeably warm to touch. He states breathing feels same as yesterday. Denies hx of allergies to medication or otherwise. Denies fever, chills, cough, chest pain, difficulty swallowing. Per patient, last BM this AM without change in color, visible blood. Objective: Vitals: 06/07/25 0600 06/07/25 0641 06/07/25 0820 06/07/25 0838 BP: 119/70 BP Location: Left arm Patient Position: Lying Pulse: 87 58 Resp: 24 20 Temp: 37.2 C (99 F) TempSrc: Temporal SpO2: 99% 96% Weight: 176 lb 2 oz (79.9 kg) 171 lb 2 oz (77.6 kg) Height: Temp (24hrs), Av.7 C (98.1 F), Min:36.1 C (96.9 F), Max:37.2 C (99 F) Intake/Output Summary (Last 24 hours) at 06/07/2025 0844 Last data filed at 06/07/2025 0511 Gross per 24 hour Intake 1110 ml Output 450 ml Net 660 ml Physical Exam Vitals reviewed. Constitutional: General: He is not in acute distress. Appearance: Normal appearance. He is ill-appearing. He is not toxic-appearing or diaphoretic. HENT: Head: Normocephalic and atraumatic. Nose: Nose normal. Mouth/Throat: Mouth: Mucous membranes are moist. Eyes: Conjunctiva/sclera: Conjunctivae normal. Cardiovascular: Rate and Rhythm: Normal rate. Rhythm irregular. Heart sounds: Normal heart sounds. No murmur heard. No friction rub. No gallop. Pulmonary: Effort: No respiratory distress. Breath sounds: No stridor. Wheezing and rhonchi present. No rales. Comments: Using abdominal muscles Abdominal: General: Abdomen is flat. Bowel sounds are normal. There is no distension. Palpations: Abdomen is soft. Tenderness: There is no abdominal tenderness. There is no guarding. Skin: General: Skin is warm and dry. Capillary Refill: Capillary refill takes less than 2 seconds. Findings: Erythema and rash present. Comments: Appreciable warmth. Maculopapular rash of bilateral lower extremities, bilateral hands, chest, and back with significant facial erythema. Neurological: Mental Status: He is alert. Polanco: No Drains: No Central Line/Port: No Intubated: No Diet: Adult diet Regular; No Added Salt (3-4 gm); Low Fat (less than or equal to 50 gm/day); No Carbonated Beverages Medications: Scheduled Meds[1] Continuous Infusions: Continuous Meds[2] PRN Meds: PRN Meds[3] Labs: CBC: Results from last 7 days Lab Units 06/07/25 0547 06/06/25 0053 06/05/25 0303 06/04/25 0020 06/02/25 0014 06/01/25 0018 WBC AUTO 10*3/uL 5.9 7.1 7.1 < > 9.1 8.6 HEMOGLOBIN g/dL 9.9* 11.5* 11.2* < > 10.9* 10.7* HEMOGLOBIN BG -- -- -- < > -- -- HEMATOCRIT % 29.1* 33.8* 33.4* < > 31.7* 31.5* PLATELETS 10*3/uL 221 236 259 < > 362 338 NEUTROS PCT AUTO % 73.6 -- -- -- 74.4 73.8 LYMPHO PCT MAN % -- 5* 3* < > -- -- LYMPHS PCT AUTO % 10.6* -- -- -- 9.8* 9.6* MONO PCT MAN % -- 0* 1* < > -- -- MONOS PCT AUTO % 8.6 -- -- -- 12.0 12.9 EOSINO PCT MAN % -- 1 -- -- -- -- EOS PCT AUTO % 5.4 -- -- -- 1.7 1.4 < > = values in this interval not displayed. BMP: Results from last 7 days Lab Units 06/07/25 0547 06/06/25 0053 06/05/25 0303 SODIUM mmol/L 131* 129* 132* POTASSIUM mmol/L 4.0 5.0 4.6 CHLORIDE mmol/L 98 95* 97* CO2 mmol/L 26 21* 23 BUN mg/dL 26* 29* 30* CREATININE mg/dL 0.79 0.92 1.08 GLUCOSE mg/dL 104 178* 180* CALCIUM mg/dL 8.9 9.2 9.1 LIVER PROFILE: Results from last 7 days Lab Units 06/07/25 0547 06/06/25 0053 06/05/25 0303 ALK PHOS U/L 98 105 91 BILIRUBIN TOTAL mg/dL 0.3 0.3 0.3 PROTEIN TOTAL g/dL 6.0* 6.9 6.8 ALT U/L 71* 103* 118* AST U/L 28 40* 53* PT/INR: Results from last 7 days Lab Units 06/04/25 1059 APTT s 35.2* INR 1.1 CARDIAC ENZYMES: Procalcitonin: Lab Results Component Value Date PROCAL 0.35 (H) 06/06/2025 Glucose: Results from last 7 days Lab Units 06/07/25 0607 06/06/25 1933 06/06/25 1636 06/06/25 1153 06/06/25 0844 06/05/252022 POCT GLUCOSE mg/dL 109* 198* 98 227* 299* 254* ASSESSMENT/PLAN: Patient Active Problem List Diagnosis Date Noted Shortness of breath 06/04/2025 Heart failure (HCC) 06/04/2025 Sepsis (HCC) 06/04/2025 MRSA bacteremia 06/04/2025 Transaminitis 06/04/2025 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) 11/02/2024 Prolonged QT interval 11/02/2024 Acute hypercapnic respiratory failure ([facility]) 11/01/2024 Acute on chronic systolic (congestive) heart failure ([facility]) 09/16/2024 Moderate malnutrition (CMS/HCC) ([facility]) 09/12/2024 Acute on chronic congestive heart failure, unspecified heart failure type ([facility]) 09/10/2024 Financial difficulties 08/20/2024 Pulmonary HTN ([facility]) 08/19/2024 DELORES on CPAP 04/15/2024 Heavy tobacco smoker 04/15/2024 Cigarette smoker 04/15/2024 Personal history of smoking 04/15/2024 Paroxysmal atrial fibrillation ([facility]) 03/03/2024 Cervical spondylosis 03/02/2024 Non-pressure chronic ulcer of other part of right foot with unspecified severity (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) 02/17/2024 Alcohol abuse with withdrawal, uncomplicated ([facility]) 02/17/2024 Right arm numbness 02/13/2024 Persistent depressive disorder 02/13/2024 DELORES (obstructive sleep apnea) 02/13/2024 Poor compliance with medication 02/13/2024 On continuous oral anticoagulation 11/21/2023 Acute exacerbation of CHF (congestive heart failure) ([facility]) 11/12/2023 Medical non-compliance 11/12/2023 Anemia in other chronic diseases classified elsewhere 01/01/2023 Closed fracture of neck of left humerus with routine healing 12/31/2022 Hyponatremia 12/29/2022 COPD exacerbation (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) 07/17/2022 Permanent atrial fibrillation (HCC) 08/25/2021 History of rib fracture 08/25/2021 Chronic hyponatremia 08/25/2021 Essential hypertension 08/25/2021 Alcohol consumption heavy 08/25/2021 COPD (chronic obstructive pulmonary disease) ([facility]) 08/25/2021 History of adenomatous polyp of colon 11/18/2019 Diverticulosis of large intestine without diverticulitis 10/27/2019 Compression fracture of thoracic vertebra with routine healing 10/07/2019 Osteoporosis 10/07/2019 Venous stasis dermatitis of left lower extremity 07/17/2017 Current moderate episode of major depressive disorder without prior episode ([facility]) 04/10/2017 Cor, pulmonale, acute ([facility]) 02/01/2016 Raynaud phenomenon 09/10/2015 Acut on Chronic Hypoxic Respiratory Failure meeting sepsis criteria COPDe 2/2 Rhinovirus/Enterovirus Denies home O2 use - Continue home dulera 2 puffs BID and Spiriva 2 puffs daily - Duonebs q4h and PRN - Prednisone 25 mg po BID, continue to taper steroids - Wean supplemental O2 - Home O2 eval prior to discharge - Pulmonology consulted, appreciate recs HFimpEF S/P removal of ICD 05/25/25 in setting of bacteremia TTE 06/04/25: EF 45%, mildly reduced LV and RV systolic function, mild-moderate TR - Continue Farxiga 10 mg daily - Continue home metoprolol succinate 75 mg BID - Continue torsemide 20 mg daily, home dose of 30 mg daily - Hold home spironolactone 25 mg daily - Hold home Losartan 25 mg daily - Strict I/O - Daily weights Recent MRSA bacteremia Maculopapular rash, Facial erythema potentially Red Man Syndrome - Continue vancomycin with tentative end date of 07/05, infusion slowed - Cefepime Discontinued - Zyrtec 10 mg daily for pruritus - Benadryl IV 25 mg before vancomycin infusions - Emollient for pruritus - ID following, appreciate recs Hyperglycemia Likely in setting of steroid use A1c (06/04/25) 6.0 - Medium dose sliding scale insulin - Continue to monitor Transaminitis- improving Abdomen US 06/01/25: hepatomegaly, liver doppler US patent blood vessels Hx of alcohol abuse, last drink >1 week ago Negative hepatitis workup from previous admission - Continue to hold home rosuvastatin 40 mg daily - Monitor LFTs Atrial Fibrillation Hx of DVT and PE - Continue home Eliquis 5 mg BID - Continue home metoprolol succinate 75 mg BID Chronic Hyponatremia Baseline 128-130 - Monitor Na Normocytic Anemia Baseline Hgb 11.5 - Iron normal, increased ferritin potentially an acute phase reactant - Follow up hemoccult for Hgb 9.9 from 11.5 - Monitor CBC Prolonged Qtc Qtc 528 - Avoid Qtc prolonging medications MDD - Hold home sertraline 100 mg daily in setting of prolonged QTc CAD - Hold home Rosuvastatin 40 mg daily in setting of transaminitis DELORES Pulmonary HTN - Continue home auto BiPAP Hx of Raynaud Phenomenon FEN/GI/DVT IVF: None Electrolytes: Monitor and replace per protocols Diet: General GI PPX: No DVT Prophylaxis: No prophylaxis/Already on anticoagulation: Eliquis Telemetry: Currently on Telemetry / Reason: Afib, HFrEF DISPOSITION: Rash improvement, monitor vital signs and mental status [1] apixaban, 5 mg, Oral, BID chlorhexidine, , Topical, Daily collagenase, , Topical, Daily dapagliflozin, 10 mg, Oral, Daily dextromethorphan-guaiFENesin, 1 tablet, Oral, BID folic acid, 1 mg, Oral, Daily [Held by provider] furosemide, 40 mg, IntraVENous, BID insulin lispro, 0-12 Units, SubCUTAneous, TID WC And insulin lispro, 0-12 Units, SubCUTAneous, Nightly ipratropium-albuterol, 3 mL, Nebulization, q4h [Held by provider] losartan, 25 mg, Oral, Daily metoprolol succinate XL, 75 mg, Oral, BID mometasone-formoterol, 2 puff, Inhalation, BID montelukast, 10 mg, Oral, Daily nicotine, 1 patch, TransDERmal, Daily pantoprazole, 40 mg, Oral, Nightly Or pantoprazole (ProtoNix) 40 mg in sodium chloride (PF) 0.9 % 10 mL injection, 40 mg, IntraVENous, Nightly predniSONE, 25 mg, Oral, BID Followed by [START ON 06/08/2025] predniSONE, 20 mg, Oral, Daily [Held by provider] rosuvastatin, 40 mg, Oral, Daily [Held by provider] sertraline, 100 mg, Oral, Daily sodium chloride 0.9%, 5-40 mL, IntraVENous, q12h sodium chloride, 4 mL, Nebulization, BID [Held by provider] spironolactone, 25 mg, Oral, Daily thiamine, 100 mg, Oral, Daily torsemide, 20 mg, Oral, Daily [Held by provider] torsemide, 30 mg, Oral, BID vancomycin, 1,000 mg, IntraVENous, q24h [2] [3] PRN medications: acetaminophen OR acetaminophen, alteplase (Cathflo Activase) 2 mg in sterile water 2 mL injection, dextrose, dextrose, glucagon (rDNA), glucose, ipratropium-albuterol, polyethylene glycol (PEG) 3350, promethazine OR promethazine OR promethazine, sodium chloride, sodium chloride 0.9% Cosigned by Ashley Yang DO at 06/07/2025 12:43 PM EDT Images from the original note were not included. Medical Teaching Service Progress Note Patient: Krystina Markham : 1955 Acct: [id number] PCP: Toi Davis MD Admitting Physician: Ashley Yang DO Admission Date: 06/03/2025 Admitting Diagnosis: Shortness of breath [R06.02] Hypoxemia [R09.02] COPD exacerbation (HCC) [J44.1] Acute on chronic congestive heart failure, unspecified heart failure type (HCC) [I50.9] Unit/Bed: B2-249/B2-249 A Hospital Day: 3 Code Status: Full Code Subjective: Overnight events: No significant overnight events. Patient seen awake at bedside, breathing comfortably not on O2. Patient complains of pruritus both arms. Denies shortness of breath, chest pain, productive cough. Good appetite. Able to walk to the bathroom. No urinary issues. Able to have a bowel movement this morning. 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 Admitted last 05/21/25 for sepsis 2/2 MRSA bacteremia and Streptococcus pneumoniae pneumonia, extubated on 05/22/25, and was discharged to SNF on 06/02 with a PICC line for vancomycin until 07/05/25. At SNF, patient noted to be in acute respiratory distress, cyanotic with O2 saturation 69%, tachypneic and tachycardic. Admitted to [facility]. On admission, noted to have hypotensive episodes. Patient met severe sepsis criteria. Cefepime started in addition to Vancomycin. Respiratory PCR (+) for rhinovirus/enterovirus. Lactic acid normal. Hypotension responsive to fluids. On hospital day 2, noted improvement in shortness of breath. Blood culture pending. Objective: Vitals: 06/07/25 0600 06/07/25 0641 06/07/25 0820 06/07/25 0838 BP: 119/70 BP Location: Left arm Patient Position: Lying Pulse: 87 58 Resp: 24 20 Temp: 37.2 C (99 F) TempSrc: Temporal SpO2: 99% 96% Weight: 176 lb 2 oz (79.9 kg) 171 lb 2 oz (77.6 kg) Height: Temp (24hrs), Av.7 C (98.1 F), Min:36.1 C (96.9 F), Max:37.2 C (99 F) Intake/Output Summary (Last 24 hours) at 06/07/2025 0943 Last data filed at 06/07/2025 0900 Gross per 24 hour Intake 1230 ml Output 450 ml Net 780 ml Physical Exam Constitutional: Appearance: He is not ill-appearing. Cardiovascular: Rate and Rhythm: Normal rate. Rhythm irregular. Heart sounds: No gallop. Pulmonary: Breath sounds: No decreased air movement. Rhonchi (both lung diggs) present. No wheezing. Comments: Speaks in full sentences Abdominal: General: Bowel sounds are normal. There is no distension. Palpations: Abdomen is soft. Tenderness: There is no abdominal tenderness. Musculoskeletal: Right lower leg: No edema. Left lower leg: No edema. Skin: Capillary Refill: Capillary refill takes less than 2 seconds. Findings: Erythema and rash (face, back, bilateral upper & lower extremities - more erythematous and pruritic than yesterday) present. Neurological: Mental Status: He is alert. Polanco: No Drains: No Central Line/Port: PICC line, right brachial vein Intubated: No Diet: Adult diet Regular; No Added Salt (3-4 gm); Low Fat (less than or equal to 50 gm/day); No Carbonated Beverages Medications: Scheduled Meds[1] Continuous Infusions: Continuous Meds[2] PRN Meds: PRN Meds[3] Labs: CBC: Results from last 7 days Lab Units 06/07/2554606/06/255206/05/253 06/04/25 0020 06/02/25 0014 06/01/25 0018 WBC AUTO 10*3/uL 5.9 7.1 7.1 < > 9.1 8.6 HEMOGLOBIN g/dL 9.9* 11.5* 11.2* < > 10.9* 10.7* HEMOGLOBIN BG -- -- -- < > -- -- HEMATOCRIT % 29.1* 33.8* 33.4* < > 31.7* 31.5* PLATELETS 10*3/uL 221 236 259 < > 362 338 NEUTROS PCT AUTO % 73.6 -- -- -- 74.4 73.8 LYMPHO PCT MAN % -- 5* 3* < > -- -- LYMPHS PCT AUTO % 10.6* -- -- -- 9.8* 9.6* MONO PCT MAN % -- 0* 1* < > -- -- MONOS PCT AUTO % 8.6 -- -- -- 12.0 12.9 EOSINO PCT MAN % -- 1 -- -- -- -- EOS PCT AUTO % 5.4 -- -- -- 1.7 1.4 < > = values in this interval not displayed. BMP: Results from last 7 days Lab Units 06/07/2554606/06/255206/05/25 0303 SODIUM mmol/L 131* 129* 132* POTASSIUM mmol/L 4.0 5.0 4.6 CHLORIDE mmol/L 98 95* 97* CO2 mmol/L 26 21* 23 BUN mg/dL 26* 29* 30* CREATININE mg/dL 0.79 0.92 1.08 GLUCOSE mg/dL 104 178* 180* CALCIUM mg/dL 8.9 9.2 9.1 LIVER PROFILE: Results from last 7 days Lab Units 06/07/25 0547 06/06/25 0053 06/05/25 0303 ALK PHOS U/L 98 105 91 BILIRUBIN TOTAL mg/dL 0.3 0.3 0.3 PROTEIN TOTAL g/dL 6.0* 6.9 6.8 ALT U/L 71* 103* 118* AST U/L 28 40* 53* PT/INR: Results from last 7 days Lab Units 06/04/25 1059 APTT s 35.2* INR 1.1 CARDIAC ENZYMES: Procalcitonin: Lab Results Component Value Date PROCAL 0.35 (H) 06/06/2025 Glucose: Results from last 7 days Lab Units 06/07/25 0607 06/06/25 1933 06/06/25 1636 06/06/25 1153 06/06/25 0844 06/05/252022 POCT GLUCOSE mg/dL 109* 198* 98 227* 299* 254* ASSESSMENT/PLAN: Patient Active Problem List Diagnosis Date Noted Shortness of breath 06/04/2025 Heart failure ([facility]) 06/04/2025 Sepsis (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) 11/02/2024 Prolonged QT interval 11/02/2024 Acute hypercapnic respiratory failure ([facility]) 11/01/2024 Acute on chronic systolic (congestive) heart failure ([facility]) 09/16/2024 Moderate malnutrition (CMS/HCC) ([facility]) 09/12/2024 Acute on chronic congestive heart failure, unspecified heart failure type ([facility]) 09/10/2024 Financial difficulties 08/20/2024 Pulmonary HTN ([facility]) 08/19/2024 DELORES on CPAP 04/15/2024 Heavy tobacco smoker 04/15/2024 Cigarette smoker 04/15/2024 Personal history of smoking 04/15/2024 Paroxysmal atrial fibrillation ([facility]) 03/03/2024 Cervical spondylosis 03/02/2024 Non-pressure chronic ulcer of other part of right foot with unspecified severity (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) 02/17/2024 Alcohol abuse with withdrawal, uncomplicated ([facility]) 02/17/2024 Right arm numbness 02/13/2024 Persistent depressive disorder 02/13/2024 DELORES (obstructive sleep apnea) 02/13/2024 Poor compliance with medication 02/13/2024 On continuous oral anticoagulation 11/21/2023 Acute exacerbation of CHF (congestive heart failure) ([facility]) 11/12/2023 Medical non-compliance 11/12/2023 Anemia in other chronic diseases classified elsewhere 01/01/2023 Closed fracture of neck of left humerus with routine healing 12/31/2022 Hyponatremia 12/29/2022 COPD exacerbation (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) 07/17/2022 Permanent atrial fibrillation ([facility]) 08/25/2021 History of rib fracture 08/25/2021 Chronic hyponatremia 08/25/2021 Essential hypertension 08/25/2021 Alcohol consumption heavy 08/25/2021 COPD (chronic obstructive pulmonary disease) ([facility]) 08/25/2021 History of adenomatous polyp of colon 11/18/2019 Diverticulosis of large intestine without diverticulitis 10/27/2019 Compression fracture of thoracic vertebra with routine healing 10/07/2019 Osteoporosis 10/07/2019 Venous stasis dermatitis of left lower extremity 07/17/2017 Current moderate episode of major depressive disorder without prior episode ([facility]) 04/10/2017 Cor, pulmonale, acute (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 - Administer vancomycin slow infusion over 4 hours - Benadryl 25 mg IV prior to vancomycin infusion - Zyrtec 10 mg daily HFimpEF (EF 45%) S/P removal of ICD 05/25/25 in the setting of bacteremia TTE 06/04/25: EF 45%, mildly reduced LV and RV systolic function, mild-moderate TR - Continue home Farxiga 10 mg daily - Continue home Metoprolol succinate 75 mg BID - Restart home Losartan 25 mg daily - Hold home Spironolactone 25 mg daily - Hold home Torsemide 30 mg BID > Restarted 20 mg BID while admitted - Strict I/Os - Daily weight COPD Not on home O2 - Continue home Dulera 2 puffs BID and Spiriva 2 puffs daily - Duonebs q4h and PRN - Steroid taper: Prednisone 25 mg BID 06/07-06/08, then Prednisone 20 mg daily 06/08-06/11 - Wean supplemental O2 - Home O2 evaluation prior to discharge - Pulmonology: - Consider triple therapy with Trellegy or Breztri at discharge - PFT outpatient DELORES Pulmonary HTN - Continue home autoBiPAP Atrial fibrillation Hx of DVT and PE - Continue home Eliquis 5 mg BID - Continue home Metoprolol succinate 75 mg BID CAD - Hold home Rosuvastatin 40mg daily in the setting of transaminitis Transaminitis - improving Abdomen US hepatomegaly, Liver doppler US patent blood vessels History of alcohol abuse, last drink > 1 week (-) Hepatitis workup from previous admission - Consider restarting home Rosuvastatin 40mg daily tomorrow 06/08/25 - Monitor LFTs Chronic hyponatremia Na bl 128-130 - Monitor Na Normocytic anemia Hgb bl 11.5 Ferritin 633 (H), Fe 74 nl, TIBC 200 (L), Fe sat nl - Monitor CBC - FOBT History of alcohol use - Continue thiamine 100 mg daily MDD - Hold home sertraline 100 mg daily in the setting of prolonged Qtc Prolonged QTc Qtc 566 - Avoid Qtc prolonging medications History of Raynaud phenomenon FEN/GI/DVT IVF: None Electrolytes: Monitor and replace per protocols Diet: General GI PPX: No DVT Prophylaxis: No prophylaxis/Already on anticoagulation: Eliquis Telemetry: Currently on Telemetry / Reason: Atrial fibrillation, HFrEF DISPOSITION: ID and pulm recs, monitor rash and respiratory symptoms, pending FOBT [1] apixaban, 5 mg, Oral, BID cetirizine, 10 mg, Oral, Daily chlorhexidine, , Topical, Daily collagenase, , Topical, Daily dapagliflozin, 10 mg, Oral, Daily dextromethorphan-guaiFENesin, 1 tablet, Oral, BID folic acid, 1 mg, Oral, Daily [Held by provider] furosemide, 40 mg, IntraVENous, BID insulin lispro, 0-12 Units, SubCUTAneous, TID WC And insulin lispro, 0-12 Units, SubCUTAneous, Nightly ipratropium-albuterol, 3 mL, Nebulization, q4h [Held by provider] losartan, 25 mg, Oral, Daily metoprolol succinate XL, 75 mg, Oral, BID mometasone-formoterol, 2 puff, Inhalation, BID montelukast, 10 mg, Oral, Daily nicotine, 1 patch, TransDERmal, Daily pantoprazole, 40 mg, Oral, Nightly Or pantoprazole (ProtoNix) 40 mg in sodium chloride (PF) 0.9 % 10 mL injection, 40 mg, IntraVENous, Nightly predniSONE, 25 mg, Oral, BID Followed by [START ON 06/08/2025] predniSONE, 20 mg, Oral, Daily [Held by provider] rosuvastatin, 40 mg, Oral, Daily [Held by provider] sertraline, 100 mg, Oral, Daily sodium chloride 0.9%, 5-40 mL, IntraVENous, q12h sodium chloride, 4 mL, Nebulization, BID [Held by provider] spironolactone, 25 mg, Oral, Daily thiamine, 100 mg, Oral, Daily torsemide, 20 mg, Oral, Daily [Held by provider] torsemide, 30 mg, Oral, BID vancomycin, 1,000 mg, IntraVENous, q24h [2] [3] PRN medications: acetaminophen OR acetaminophen, alteplase (Cathflo Activase) 2 mg in sterile water 2 mL injection, dextrose, dextrose, glucagon (rDNA), glucose, ipratropium-albuterol, polyethylene glycol (PEG) 3350, promethazine OR promethazine OR promethazine, sodium chloride, sodium chloride 0.9% [facility] Respiratory Care Department Progress Note Comment or reasoning for refusal: Patient was seen in attempts to fulfill CPAP/BiPAP/AutoPAP order. Patient refused PAP therapy/study at this time. Patient was educated on medical need and reasoning for physician order to ensure patient was making an informed medical decision. All of the patient's questions were answered at this time and patient was informed that if the patient changes their mind regarding wearing PAP to hit their "call light" or inform their nurse to contact Respiratory. A second, consecutive night of refusing PAP therapy/study results in order completion in the EMR. If future CPAP/BiPAP/AutoPAP therapy or study is indicated please place another order in the EMR and the assigned Respiratory Therapist will reattempt to fulfill orders. Reason for refusal: states he does not want to wear pap tonight Thank you for involving Respiratory in the care of this patient, Images from the original note were not included. [facility] - Infectious Diseases Attending Progress Note Subjective: Follow up for sepsis, acute hypoxic respiratory failure, recent MRSA bacteremia and Strep pneumoniae pneumonia. He was alert, sitting on a chair, felt well, no productive cough, SOB improved, using 4L O2 in [place], denied fever, chill or any new complaint, he was found to have diffuse redness on his face since the recent antimicrobial infusion- denied itch or pain, appeared chronically ill but NAD. He was admitted on 06/04/25 from a nursing facility for worsening SOB, wheezing, cough, headache for a day or two; denied fever, chest pain, abdominal pain, vomiting or diarrhea; in ED on presentation, he was tachycardic P 97, tachypneic R 29, hypoxic Pox 93%, in early AM today he was hypotensive BP 86/55; CXR showed cardiomegaly, interstitial coarsening, no focal consolidation, pleural effusion or pneumothorax; labs showed hyponatremia Na 131, transaminitis ALT 170, AST 134, alb 2.9, elevated BNP, resp pcr detected rhinovirus. He was recently hospitalized from 05/20-06/02/25 at [facility] with septic shock, MRSA bacteremia and Strep pneumoniae pneumonia, he was extubated on 05/22, he underwent ICD lead extraction/ replacement 05/26, PICC was placed 06/02, he was discharged to [facility] on vancomycin till 07/05/25. He has h/o COPD, HFrEF (EF 21% in 11/2023), ICD, A-fib on eliquis, Hx of DVT and PE, Hx of ETOH. He was examined; notes, labs, imaging were reviewed; treatment plan was discussed; clinical informations were documented in electronic record. Objective: Vitals: Patient Vitals for the past 24 hrs: BP Temp Temp src Pulse Resp SpO2 Weight 06/06/25 1238 -- -- -- 76 18 95 % -- 06/06/25 0913 -- -- -- 86 18 97 % -- 06/06/25 0905 -- -- -- 95 18 97 % -- 06/06/25 0747 152/70 36.4 C (97.5 F) Temporal 80 17 98 % -- 06/06/25 0511 -- -- -- -- -- -- 79.9 kg (176 lb 2 oz) 06/06/25 0420 149/83 36.1 C (97 F) Temporal 77 18 96 % -- 06/06/25 0337 -- -- -- 73 18 94 % -- 06/06/25 0055 121/83 36.2 C (97.2 F) Temporal 51 18 94 % -- 06/05/25 2305 -- -- -- 95 18 92 % -- 06/05/25 1950 -- -- -- 97 18 92 % -- 06/05/25 1935 138/81 36.4 C (97.6 F) Temporal 101 18 92 % -- 06/05/25 1654 142/74 36.6 C (97.9 F) Temporal 78 16 92 % -- Physical Exam Vitals and nursing note reviewed. Constitutional: Appearance: Normal appearance. He is well-developed and normal weight. He is not toxic-appearing. Comments: Patient appears uncomfortable because of breathing problem. HENT: Head: Normocephalic and atraumatic. Right Ear: External ear normal. Left Ear: External ear normal. Nose: Nose normal. Mouth/Throat: Mouth: Mucous membranes are moist. Pharynx: Oropharynx is clear. Eyes: Extraocular Movements: Extraocular movements intact. Conjunctiva/sclera: Conjunctivae normal. Pupils: Pupils are equal, round, and reactive to light. Cardiovascular: Rate and Rhythm: Normal rate and regular rhythm. Heart sounds: Normal heart sounds. No murmur heard. Pulmonary: Effort: Respiratory distress decreased. Breath sounds: Wheezing and rhonchi present. Comments: Tachypnea decreased. Wheezes and rhonchi decreased. Abdominal: General: Bowel sounds are normal. Palpations: Abdomen is soft. Tenderness: There is no abdominal tenderness. There is no guarding or rebound. Musculoskeletal: General: No swelling or tenderness. Normal range of motion. Cervical back: Normal range of motion and neck supple. Right lower leg: No edema. Left lower leg: No edema. Skin: General: Skin is warm and dry. Neurological: General: No focal deficit present. Mental Status: He is alert and oriented to person, place, and time. Cranial Nerves: Cranial nerves 2-12 are intact. Sensory: Sensation is intact. Motor: Motor function is intact. Coordination: Coordination is intact. Psychiatric: Mood and Affect: Mood normal. Labs: Recent Labs 06/04/25 0020 06/04/25 0201 06/05/25 0303 06/06/25 0053 NA 131* -- 132* 129* K 4.5 -- 4.6 5.0 CL 94* -- 97* 95* CO2 24 -- 23 21* BUN 24* -- 30* 29* CREATININE 1.10 -- 1.08 0.92 GLUCOSE 136* -- 180* 178* CALCIUM 9.0 -- 9.1 9.2 PROT 7.1 -- 6.8 6.9 BILITOT 0.6 -- 0.3 0.3 ALKPHOS 114 -- 91 105 AST 134* -- 53* 40* ALT 170* -- 118* 103* PROCAL -- 0.44* -- 0.35* Recent Labs 06/04/25 0020 06/04/25 0024 06/04/25 0211 06/05/25 0303 06/06/25 0053 WBC 10.7 -- -- 7.1 7.1 HGB 12.1* < > 13.0* 11.2* 11.5* HCT 34.9* -- -- 33.4* 33.8* PLT 294 -- -- 259 236 LYMPHOPCT 4* -- -- 3* 5* MONOPCT 2* -- -- 1* 0* BASOPCT 1 -- -- 1 1 < > = values in this interval not displayed. Procal 0.35 0.51 Micro: No results for input(s): "COVID19" in the last 72 hours. 06/04/2025 1502 06/04/2025 2004 MRSA by PCR [[id number]] (Abnormal) ESwab from Nasal Final result Component Value Staphylococcus aureus Detected Abnormal mecA gene Detected Abnormal 06/04/2025 0842 06/05/2025 110 Blood culture Site #1 - Suspected Infection [[id number]] Blood, Venous Preliminary result Component Value Blood Culture No growth at 24 hours P 06/04/2025 0842 06/05/2025 1102 Blood culture Site #2 - Suspected Infection [[id number]] Blood, Venous Preliminary result Component Value Blood Culture No growth at 24 hours P 06/04/2025 0510 06/04/2025 0855 Respiratory Pathogens Panel by PCR [[id number]] (Abnormal) Swab from Nasopharynx Final result Component Value SARS-CoV-2 Not Detected Adenovirus Not Detected Coronavirus HKU1 Not Detected Coronavirus NL63 Not Detected Coronavirus 229E Not Detected Coronavirus OC43 Not Detected Human Metapneumovirus Not Detected Human Rhinovirus/Enterovirus Detected Abnormal Influenza A Not Detected Influenza B Not Detected Parainfluenza 1 Not Detected Parainfluenza 2 Not Detected Parainfluenza 3 Not Detected Parainfluenza 4 Not Detected Respiratory Syncytial Virus Not Detected Bordetella pertussis Not Detected Bordetella parapertussis Not Detected Chlamydia pneumoniae Not Detected Mycoplasma pneumoniae Not Detected 06/04/2025 0021 06/04/2025 0113 COVID-19, Flu A/B, and RSV Combo [[id number]] Swab from Nasopharynx Final result Component Value SARS-CoV-2 Not Detected Respiratory Syncytial Virus Not Detected Influenza A Not Detected Influenza B Not Detected 06/01/2025 1243 06/04/20252102 Legionella and Streptococcus Urine Antigen [[id number]] Urine, Clean Catch Final result Component Value No component results 06/01/2025 1243 06/04/20252102 Legionella and Streptococcus Urine Antigen [[id number]] Urine, Clean Catch Final result Component Value Legionella pneumophila Ag Not Detected Streptococcus pneumoniae Ag Not Detected 05/24/2025 0540 05/29/2025 09 Blood culture Site #1 - Assess for effectiveness of treatment [[id number]] Blood, Venous Final result Component Value Blood Culture No growth at 5 days 05/24/2025 0540 05/29/2025 [facility] Blood culture Site #2 - Assess for effectiveness of treatment [[id number]] Blood, Venous Final result Component Value Blood Culture No growth at 5 days 05/22/2025 1246 05/25/2025 [facility] Blood culture Site #1 - Suspected Infection [[id number]] (Abnormal) Blood, Venous Final result Component Value Blood Culture Staphylococcus aureus Panic ID consult required per med staff policy dated 2021. For identification and/or sensitivity, refer to culture collected on: 05/20/2025 at 2220 ([id number]) This is an edited result. Previous organism was Gram-positive cocci on 05/23/2025 at 0629 EDT. PBP2A Positive 05/22/2025 1246 05/25/2025 [facility] Blood culture Site #2 - Suspected Infection [[id number]] (Abnormal) Blood, Venous Final result Component Value Blood Culture Staphylococcus aureus Panic ID consult required per med staff policy dated 2021. For identification and/or sensitivity, refer to culture collected on: 05/20/2025 at 2220 (25[id number]) This is an edited result. Previous organism was Gram-positive cocci on 05/23/2025 at 1133 EDT. PBP2A Positive 05/21/2025 0320 05/25/2025 1129 Respiratory culture and Stain [[id number]] (Abnormal) Sputum Final result Component Value Respiratory culture Rare respiratory elsa present. Few Streptococcus pneumoniae Abnormal Gram Stain Result Moderate Ciliated epithelial cells Abnormal No polymorphonuclear leukocytes seen Abnormal Many Gram positive cocci in pairs and chains Abnormal 05/21/2025 0320 05/21/2025 0926 Pneumonia PCR Panel [[id number]] Sputum Final result Component Value Staphylococcus aureus Not Detected Streptococcus agalactiae Not Detected Streptococcus pneumoniae Not Detected Streptococcus pyogenes Not Detected Haemophilus influenzae Not Detected Moraxella catarrhalis Not Detected Acinetobacter baumannii complex Not Detected Enterobacter cloacae complex Not Detected Escherichia coli Not Detected Klebsiella (Enterobacter) aerogenes Not Detected Klebsiella oxytoca Not Detected Klebsiella pneumoniae Not Detected Proteus spp Not Detected Pseudomonas aeruginosa Not Detected Serratia marcescens Not Detected Chlamydia pneumoniae Not Detected Legionella pneumophila Not Detected Mycoplasma pneumoniae Not Detected Adenovirus Not Detected Coronavirus Not Detected Human Metapneumovirus Not Detected Human Rhinovirus/Enterovirus Not Detected Influenza A Not Detected Influenza B Not Detected Parainfluenza virus Not Detected Respiratory Syncytial Virus Not Detected 05/20/2025 2347 05/21/2025 0201 Legionella and Streptococcus Urine Antigen [[id number]] Urine, Clean Catch Final result Component Value No component results 05/20/2025 2347 05/21/2025 0434 Legionella and Streptococcus Urine Antigen [[id number]] (Abnormal) Urine, Clean Catch Final result Component Value No component results 05/20/2025 2347 05/21/2025 0434 Legionella and Streptococcus Urine Antigen [[id number]] (Abnormal) Urine, Clean Catch Final result Component Value Legionella pneumophila Ag Not Detected Streptococcus pneumoniae Ag Detected Abnormal 05/20/2025 2232 05/20/2025 2316 SARS-CoV-2, Flu A/B, and RSV Combo [[id number]] Swab from Nasopharynx Final result Component Value SARS-CoV-2 Not Detected Respiratory Syncytial Virus Not Detected Influenza A Not Detected Influenza B Not Detected 05/20/2025 2232 05/21/2025 0636 Respiratory Pathogens Panel by PCR [[id number]] Swab from Nasopharynx Final result Component Value SARS-CoV-2 Not Detected Adenovirus Not Detected Coronavirus HKU1 Not Detected Coronavirus NL63 Not Detected Coronavirus 229E Not Detected Coronavirus OC43 Not Detected Human Metapneumovirus Not Detected Human Rhinovirus/Enterovirus Not Detected Influenza A Not Detected Influenza B Not Detected Parainfluenza 1 Not Detected Parainfluenza 2 Not Detected Parainfluenza 3 Not Detected Parainfluenza 4 Not Detected Respiratory Syncytial Virus Not Detected Bordetella pertussis Not Detected Bordetella parapertussis Not Detected Chlamydia pneumoniae Not Detected Mycoplasma pneumoniae Not Detected 05/20/2025221905/23/2025 0727 Blood culture Site #1 - Suspected Infection [[id number]] (Abnormal) Blood, Venous Final result Component Value Blood Culture Staphylococcus aureus Panic Methicillin-resistant Staphylococcus aureus (MRSA) ID consult required per med staff policy dated 2021. This is an edited result. Previous organism was Gram-positive cocci on 05/21/2025 at 1345 EDT. 05/20/2025221905/23/2025 0727 Blood culture Site #2 - Suspected Infection [[id number]] (Abnormal) Blood, Venous Final result Component Value Blood Culture Staphylococcus aureus Panic ID consult required per med staff policy dated 2021. For identification and/or sensitivity, refer to culture collected on: 05/20/2025 at 2220 ([facility]-[id number]). This is an edited result. Previous organism was Gram-positive cocci on 05/21/2025 at 1345 EDT. PBP2A Positive 05/20/2025221905/21/2025 1345 Blood Culture Identification - Anaerobic [[id number]] (Abnormal) Blood, Venous Final result Component Value Staphylococcus aureus Detected Abnormal mecA/C and MREJ (MRSA) Detected Abnormal Lines: Rt arm PICC (06/02) Radiography/Echo/Other: Procedure Component Value Units Date/Time CT chest angiogram w and/or wo IV contrast [[id number]] Collected: 06/04/25 032 Order Status: Completed Updated: 06/04/25 034 Narrative: Patient Name: KRYSTINA MARKHAM : 1955 Exam Date/Time: 06/04/2025 02:20 Procedure: CT CHEST ANGIOGRAM W AND/OR WO IV CONTRAST Ordering Provider: STAFFORD TARAS Reason For Exam: Pulmonary embolism (PE) suspected, positive D-dimer EXAMINATION: CTA of the chest with intravenous contrast, pulmonary embolism protocol. EXAM DATE & TIME: 06/04/2025 2:20 AM EDT INDICATION: Pulmonary embolism (PE) suspected, positive D-dimer ADDITIONAL INFORMATION: 70-year-old male with clinical suspicion for pulmonary embolism presents for evaluation COMPARISON: CT chest on pelvis dated 05/20/2025 LIMITATIONS: As below TECHNIQUE: CT angiogram of the chest was performed with intravenous contrast. Thin isotropic axial imaging was obtained from above the lung apices through the level of the adrenal glands during dynamic infusion of intravenous contrast for evaluation of the vessels. Multiplanar and 3-D maximum intensity projection reformulations were created from the raw CT data with independent workstation software by the radiologist. These were interpreted in conjunction with the axial images to render the findings listed below. Before infusion of intravenous contrast, radiology personnel investigated the possibility of an allergic history and any history of reaction to iodinated contrast material. Dose reduction was employed with automated exposure control. FINDINGS: Quality Assurance Tech image: Unremarkable. Exam Quality: Overall exam quality is suboptimal Pulmonary arterial enhancement is suboptimal, the breath-hold is adequate and there are some artifacts impacting image quality. Pulmonary Arteries: There are no filling defects within the pulmonary arterial system to suggest pulmonary embolus. There is prominence of the main pulmonary arteries, which can be seen in the setting of pulmonary arterial hypertension. Cardiovascular: The heart is enlarged. Atherosclerotic vascular calcifications are present in the aortic arch and coronary arteries. Mediastinum/pericardium: Unremarkable. Thyroid: Unremarkable. Tracheobronchial tree: Debris is present in the lower lobe bronchioles. Pleura: No pleural effusion or pneumothorax. Lungs: Moderate to severe centrilobular and paraseptal emphysema is seen. There is also dependent and bibasilar scarring/atelectasis. Persistent, albeit improved consolidation near the posterior left lung base. Nodules: No nodules are present that require follow up. Lymph nodes: No emerging adenopathy. Included images of the upper abdomen: Unremarkable. Visualized musculoskeletal structures: Chronic compression fractures of the T6, T7, T8, T9, T12, L1 and L2 vertebral bodies are seen, and appear similar compared to the prior study. Multiple posterior bilateral rib deformities are also noted. Impression: 1. Negative for acute pulmonary embolus. 2. The RV/LV ratio is <1. This is considered normal*. 3. Persistent, albeit improved consolidation near the posterior left lung base. 4. Additional chronic findings as above. *Reference: Campos Nayak., Rik Wilson, Letty Membreno., Fabiana Ellis, & Reggie Oneill. (2006). Can CT pulmonary angiography allow assessment of severity and prognosis in patients presenting with pulmonary embolism? What the radiologist needs to know. Radiographics, 26(1), 23-39. Notes: The short axis of the right ventricle is measured at the level of the tricuspid valve from inner wall to inner wall at its widest point. The short axis of the left ventricle is measured at the level of the mitral valve from inner wall to inner wall at its widest point. Note that the short axes of the right ventricle and left ventricle may be located at different axial CT levels. RV/LV diameter ratio <1: normal RV/LV diameter ratio >1: mildly abnormal RV/LV diameter ratio >1.5: severely abnormal Report Dictated on Electronically Signed By: Carmine Caraballo MD Electronically Signed Date/Time: 06/04/2025 3:42 AM EDT XR chest 1 view [[id number]] Collected: 06/04/25132 Order Status: Completed Updated: 06/04/25136 Narrative: Patient Name: KRYSTINA MARKHAM : 1955 [facility]#: [id number] Exam Date/Time: 06/04/2025 00:06 Procedure: XR CHEST 1 VIEW Ordering Provider: STAFFORD TARAS Reason For Exam: DYSPNEA EXAMINATION: XR chest AP. EXAM DATE & TIME: 06/04/2025 12:06 AM EDT INDICATION: DYSPNEA ADDITIONAL INFORMATION: 70-year-old male with dyspnea presents for evaluation COMPARISON: Chest x-rays dated 06/02/2025, 05/26/2025 and 05/23/2025 TECHNIQUE: AP view of the chest was obtained. FINDINGS: Lines/support devices: Cardiac leads project over the chest, somewhat limiting evaluation. Right arm PICC is noted with its distal tip near the SVC. This is looped in the right axillary region (only partially imaged). Cardiomediastinal silhouette: The heart is borderline enlarged. Lungs/pleura: Interstitial coarsening is present. No focal consolidation, pleural effusion or pneumothorax. Osseous structures: Degenerative changes of the spine and shoulders are seen. No acute osseous abnormality is demonstrated. Remote deformity of the left humeral head/neck is seen. Bones are osteopenic. Other findings: None. Impression: 1. Right arm PICC is looped in the right axillary region (only partially imaged). 2. Cardiomegaly. Report Dictated on Electronically Signed By: Carmine Caraballo MD Electronically Signed Date/Time: 06/04/2025 1:36 AM EDT XR chest 1 view [[id number]] Collected: 06/02/251619 Order Status: Completed Updated: 06/02/251622 Narrative: [facility] 1955 [id number] Exam Date/Time: 06/02/2025 16:13 Procedure: XR CHEST 1 VIEW Ordering Provider: BERG CAMERON Reason For Exam: PICC placement PORTABLE CHEST X-RAY CLINICAL INDICATION: PICC placement A portable frontal view of the chest was obtained. COMPARISON: 05/26/2025 FINDINGS: Heart size is enlarged. Right-sided PICC line terminates near the junction of superior vena cava and right atrium. Chronic interstitial changes are noted within the lungs. No focal consolidation is seen. There is no large pleural effusion or pneumothorax. Old right rib and bilateral shoulder deformities are again noted. There are degenerative changes of the spine. Impression: Right-sided PICC line terminates in the junction of the superior vena cava and right atrium. Cardiomegaly, similar to the prior study. Chronic interstitial changes within the lungs. Report Dictated on Electronically Signed By: Charlie Carter MD Electronically Signed Date/Time: 06/02/2025 4:21 PM EDT 05/26/25 TTE: Interpretation Summary Show Result Comparison Left Ventricle: Left ventricle is moderately dilated. Severely reduced left ventricular systolic function. Severe global hypokinesis present. Right Ventricle: Right ventricle is severely dilated. Severely reduced systolic function. Tricuspid Valve: Moderate (2+) regurgitation. Moderately elevated RVSP. RVSP is 44 mmHg. Right Atrium: Right atrium is severely dilated. Echo Findings Left Ventricle Left ventricle is moderately dilated. Severely reduced left ventricular systolic function. Severe global hypokinesis present. Right Ventricle Right ventricle is severely dilated. Severely reduced systolic function. Right Atrium Right atrium is severely dilated. Tricuspid Valve Moderate (2+) regurgitation. Moderately elevated RVSP. RVSP is 44 mmHg. IVC/Hepatic Veins IVC diameter is dilated and decreases greater than 50% during inspiration; therefore the estimated right atrial pressure is intermediate (~8 mmHg). Pericardium Evidence of prominent epicardial fat. No pericardial effusion. Study Details Image quality: fair. Heart rate: 84 bpm. Blood pressure: 130/80 mmHg. Technical qualifiers: Technically difficult study due to low parasternal window. No contrast was given. Echo performed by Ilene-C cristian Camacho under direct supervision. Antimicrobials, Start/End Dates: Cefepime 06/04-5 Vanco 05/21- Impression: Sepsis. Improved. Facial redness. ?rolan syndrome, r/o other allergy. Acute on chronic hypoxic respiratory failure. Improved. +Rhinovirus/Enterovirus. +MRSA pcr. Recent MRSA bacteremia on vancomycin to end 07/05. Recent strep pneumoniae pneumonia. Treated. HFrEF 2/2 NICM. ICD lead extraction/replacement 05/26/25. COPD/ emphysema. Plan: Pt was admitted sick due to acute on chronic hypoxic respiratory failure requiring 5L O2. Pt afebrile, hemodynamically ok, hypoxia improving. Resp pcr detected Human Rhinovirus/Enterovirus and nose pcr +MRSA. Recent legionella ag -neg. Sputum could not be obtained for cx and pneumonia pcr. Procal improving. Discontinue cefepime, continue vancomycin, slow infusion over 4 hours, through 07/05/25, as scheduled by Dr. Ngo. Moderate level complexity medical decision making. Please call with any further question. Dr. Arndt covers the week. Total time of 35 minutes on this day of encounter spent on, but not limited to review of tests, medical records , complex history , review of external medical records, paper and electronic, counseling and education (patient, family member, caregiver), ordering medications, tests, and procedures, communication with other health care professions, independent interpretation of tests, care coordination, arrangement of outpatient antimicrobial therapy, post-hospitalization therapy and follow-up, and counseling for risks, benefits, and consideration of use of antimicrobials. MTS Attending Note Patient: Krystina Markham Date of : 1955 Admitting Diagnosis: Shortness of breath [R06.02] Hypoxemia [R09.02] COPD exacerbation (HCC) [J44.1] Acute on chronic congestive heart failure, unspecified heart failure type (HCC) [I50.9] Admit Date: 06/03/2025 Hospital Day: 2 Case discussed with residents, documentation, diagnostic studies and consults reviewed. Patient seen with MTS team: Drs. Shankar and Cathleen History: Chief Complaint Patient presents with Shortness of Breath Pt brought in by EMS for SOB from [facility]. Pt currently recently diagnosed with pneumonia receiving IV vancomycin. HX of COPD and CHF. Overnight events: Given 1 dose Lasix Pmhx HfimpEF, COPD, afib, home o2 2L, DELORES, hyponatremia, MDD, ETOH/tob use, hx ICD Subjective: Patient feeling at his baseline with chronic shortness of breath. States he "wheezes every day." Unable to name president or correct year. Tolerating p.o. well. BM this morning. Denies chest pain or cough. Denies itching. Nursing reports received vancomycin 0300, currently receiving cefepime. Nurse notes skin color has been erythematous since her shift began at 7 AM States does not use home O2 Objective: BP 152/70 (BP Location: Right arm, Patient Position: Sitting) Pulse 76 Temp 36.4 C (97.5 F) (Temporal) Resp 18 Ht 5' 8" (1.727 m) Wt 176 lb 2 oz (79.9 kg) SpO2 95% BMI 26.78 kg/m Temp (24hrs), Av.3 C (97.4 F), Min:36.1 C (97 F), Max:36.6 C (97.9 F) Intake/Output Summary (Last 24 hours) at 06/06/2025 1305 Last data filed at 06/06/2025 0900 Gross per 24 hour Intake 760 ml Output -- Net 760 ml Supplemental O2: O2 Flow Rate (L/min): 4 L/min General appearance: Pt ill appearing, face upper extremities chest and back are red with raised macular rash (see media) lying in bed HEENT: no scleral icterus , dry mucous membranes Respiratory: Rhonchi and wheezing throughout L>R ant, use of abdominal muscles for breathing, able to speak in full sentences Cardiovascular: Irreg, distant sounds Abdomen: Soft, non-tender Musculoskeletal: No edema bilaterally. Several amputations of the left fingers Skin: bruising noted UE, abrasion on chest wall, macular raised erythematous rash of chest back, upper extremities, palms. Neurologic: Awake and alert, moving all 4 extremities CBC: Recent Labs 06/04/251906/04/252306/04/2521006/05/2530206/06/2552 WBC 10.7 -- -- 7.1 7.1 RBC 4.05* -- -- 3.78* 3.82* HGB 12.1* < > 13.0* 11.2* 11.5* HCT 34.9* -- -- 33.4* 33.8* MCV 86.2 -- -- 88.4 88.5 RDW 13.1 -- -- 13.2 13.2 PLT 294 -- -- 259 236 < > = values in this interval not displayed. No components found for: "LABA1C" CARDIAC ENZYMES: No results for input(s): "TROPONINI" in the last 72 hours. Procalcitonin: Lab Results Component Value Date PROCAL 0.35 (H) 06/06/2025 BMP: Recent Labs 06/04/251906/05/2530206/06/2552 NA 131* 132* 129* K 4.5 4.6 5.0 CL 94* 97* 95* CO2 24 23 21* BUN 24* 30* 29* CREATININE 1.10 1.08 0.92 GLUCOSE 136* 180* 178* CALCIUM 9.0 9.1 9.2 ANIONGAP 13 12 13 LIVER PROFILE: Recent Labs 06/04/251906/05/2530206/06/2552 AST 134* 53* 40* ALT 170* 118* 103* BILITOT 0.6 0.3 0.3 ALKPHOS 114 91 105 PROT 7.1 6.8 6.9 Lab Results Component Value Date IRON 74 06/06/2025 TIBC 200 (L) 06/06/2025 FERRITIN 633 (H) 06/06/2025 Vitamin B12 598 Blood cultures no growth x 48 hours Resp PCR +rhino/entero Mag 2.1 A1C 6 BNP 10,402 MRSA by PCR positive, MEC a positive Legionella/strep negative CBC shows no eosinophils this a.m. however does show [address] chest angiogram w and/or wo IV contrast Pulmonary Arteries: There are no filling defects within the pulmonary arterial system to suggest pulmonary embolus. There is prominence of the main pulmonary arteries, which can be seen in the setting of pulmonary arterial hypertension. Cardiovascular: The heart is enlarged. Atherosclerotic vascular calcifications are present in the aortic arch and coronary arteries. Lungs: Moderate to severe centrilobular and paraseptal emphysema is seen. There is also dependent and bibasilar scarring/atelectasis. Persistent, albeit improved consolidation near the posterior left lung base. Impression: 1. Negative for acute pulmonary embolus. 2. The RV/LV ratio is <1. This is considered normal*. 3. Persistent, albeit improved consolidation near the posterior left lung base. 4. Additional chronic findings as above. ECG 12 lead Atrial fibrillation Ventricular premature complex Left bundle branch block XR chest 1 view Other findings: None. Impression: 1. Right arm PICC is looped in the right axillary region (only partially imaged). 2. Cardiomegaly. ECG 12 lead Atrial fibrillation Left bundle branch block No significant change from prior. Artifact noted. Occasional PVC Electronically Signed On 06-04-2025 00:32:08 EDT by Reese Stafford Summary of singh issues: Acute on chronic respiratory failure with known MRSA bacteremia undergoing current treatment with vanc (last day scheduled 07/05/25). Now with entero/rhinovirus. Pt meeting sepsis criteria on admission Will begin spacing steroid dose Con't antb/broad spectrum Consult to ID-appreciate input Blood cultures negative x 48 hours Unable to produce sputum culture Continue duonebs Home O2 prior to discharge Rash (new)-unclear etiology Discussed with ID, RE: allergic interaction Hyperglycemia likely due to steroids (last A1c this admission 6.0) Cover with sliding scale insulin HFrEF 1 dose lasix yesterday, restart home Demadex Restart beta amira On Farxiga/SGLT2 COPDe/emphysema-uses home o2?? Auto bipap Steroids Home O2 prior to discharge Prolonged QTC Hold prolonging meds Will recheck Persistant hyponatremia Consider nephro i consult Pulm HTN/DELORES/cardiomegaly CAD/afib/post ICD removal Con't holding ARB/spironolactone Con't anticoagulation Transaminitis-improving Holding statin at this time, anticipate may be able to restart at discharge MDD Hold sertraline in setting of hyponatremia; may need to consider alternative Hx raynaud pneumonia Anemia/stable-monitor, will check iron studies Alcohol use-Will check vitamin B12, continue thiamine Dispo: Continue antibiotics pending blood cultures See resident's note for additional details. Images from the original note were not included. Medical Teaching Service Progress Note Patient: Krystina Markham : 1955 Acct: [id number] PCP: Toi Davis MD Admitting Physician: Ashley Yang DO Admission Date: 06/03/2025 Admitting Diagnosis: Shortness of breath [R06.02] Hypoxemia [R09.02] COPD exacerbation (HCC) [J44.1] Acute on chronic congestive heart failure, unspecified heart failure type (HCC) [I50.9] Unit/Bed: -249/-249 A Hospital Day: 2 Code Status: Full Code Subjective: Overnight events: No significant overnight events. Patient seen at bedside this AM. He feels the same in terms of his breathing and is on 2.5 L of oxygen. He has had bowel movement and had breakfast. Denies abdominal pain or cough. 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 Admitted last 05/21/25 for sepsis 2/2 MRSA bacteremia and Streptococcus pneumoniae pneumonia, extubated on 05/22/25, and was discharged to [facility] on 06/02 with a PICC line for vancomycin until 07/05/25. At SNF, patient noted to be in acute respiratory distress, cyanotic with O2 saturation 69%, tachypneic and tachycardic. Admitted to [facility]. On admission, noted to have hypotensive episodes. Patient met severe sepsis criteria. Cefepime started in addition to Vancomycin. Respiratory PCR (+) for rhinovirus/enterovirus. Lactic acid normal. Hypotension responsive to fluids. On hospital day 2, noted improvement in shortness of breath. Blood culture negative at 48 hours. Objective: Vitals: 06/06/25 0511 06/06/25 0747 06/06/25 0905 06/06/25 0913 BP: 152/70 BP Location: Right arm Patient Position: Sitting Pulse: 80 95 86 Resp: 17 18 18 Temp: 36.4 C (97.5 F) TempSrc: Temporal SpO2: 98% 97% 97% Weight: 176 lb 2 oz (79.9 kg) Height: Temp (24hrs), Av.3 C (97.4 F), Min:36.1 C (97 F), Max:36.6 C (97.9 F) Intake/Output Summary (Last 24 hours) at 06/06/2025 1146 Last data filed at 06/06/2025 0900 Gross per 24 hour Intake 760 ml Output -- Net 760 ml Physical Exam Constitutional: General: He is not in acute distress. Appearance: He is ill-appearing. Cardiovascular: Rate and Rhythm: Normal rate and regular rhythm. Heart sounds: Normal heart sounds. Pulmonary: Effort: No respiratory distress. Breath sounds: Wheezing present. Comments: Abdominal breathing present Abdominal: General: Bowel sounds are normal. There is no distension. Palpations: Abdomen is soft. Tenderness: There is no abdominal tenderness. Musculoskeletal: Right lower leg: No edema. Left lower leg: No edema. Skin: Comments: Macular raised rash that is not pruritic present on bilateral forearms, hands and back. Erythema of the face. Rash and erythema significantly more appreciable in person compared to images below Neurological: Comments: Brock Polanco: No Drains: No Central Line/Port: No Intubated: No Diet: Adult diet Regular; No Added Salt (3-4 gm); Low Fat (less than or equal to 50 gm/day); No Carbonated Beverages Medications: Scheduled Meds[1] Continuous Infusions: Continuous Meds[2] PRN Meds: PRN Meds[3] Labs: CBC: Results from last 7 days Lab Units 06/06/25 0053 06/05/25 0303 06/04/25 0211 06/04/25 0024 06/04/25 0020 06/02/25 0014 06/01/25 0018 05/31/25 0514 WBC AUTO 10*3/uL 7.1 7.1 -- -- 10.7 9.1 8.6 8.2 HEMOGLOBIN g/dL 11.5* 11.2* -- -- 12.1* 10.9* 10.7* 11.1* HEMOGLOBIN BG g/dl -- -- 13.0* < > -- -- -- -- HEMATOCRIT % 33.8* 33.4* -- -- 34.9* 31.7* 31.5* 32.9* PLATELETS 10*3/uL 236 259 -- -- 294 362 338 316 NEUTROS PCT AUTO % -- -- -- -- -- 74.4 73.8 75.7 LYMPHO PCT MAN % 5* 3* -- -- 4* -- -- -- LYMPHS PCT AUTO % -- -- -- -- -- 9.8* 9.6* 7.7* MONO PCT MAN % 0* 1* -- -- 2* -- -- -- MONOS PCT AUTO % -- -- -- -- -- 12.0 12.9 13.2* EOSINO PCT MAN % 1 -- -- -- -- -- -- -- EOS PCT AUTO % -- -- -- -- -- 1.7 1.4 1.2 < > = values in this interval not displayed. BMP: Results from last 7 days Lab Units 06/06/25 0053 06/05/25 0303 06/04/25 0020 SODIUM mmol/L 129* 132* 131* POTASSIUM mmol/L 5.0 4.6 4.5 CHLORIDE mmol/L 95* 97* 94* CO2 mmol/L 21* 23 24 BUN mg/dL 29* 30* 24* CREATININE mg/dL 0.92 1.08 1.10 GLUCOSE mg/dL 178* 180* 136* CALCIUM mg/dL 9.2 9.1 9.0 LIVER PROFILE: Results from last 7 days Lab Units 06/06/25 0053 06/05/25 0303 06/04/25 0020 ALK PHOS U/L 105 91 114 BILIRUBIN TOTAL mg/dL 0.3 0.3 0.6 PROTEIN TOTAL g/dL 6.9 6.8 7.1 ALT U/L 103* 118* 170* AST U/L 40* 53* 134* PT/INR: Results from last 7 days Lab Units 06/04/25 1059 APTT s 35.2* INR 1.1 CARDIAC ENZYMES: Procalcitonin: Lab Results Component Value Date PROCAL 0.35 (H) 06/06/2025 Glucose: Results from last 7 days Lab Units 06/06/25 0844 06/05/253 06/05/25 0630 06/04/25 2100 06/04/25 1614 06/04/25 1126 POCT GLUCOSE mg/dL 299* 254* 199* 209* 248* 298* ASSESSMENT/PLAN: Patient Active Problem List Diagnosis Date Noted Shortness of breath 06/04/2025 Heart failure (HCC) 06/04/2025 Sepsis (HCC) 06/04/2025 MRSA bacteremia 06/04/2025 Transaminitis 06/04/2025 Encounter for removal of cardiac resynchronization therapy defibrillator (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) 11/01/2024 Acute on chronic systolic (congestive) heart failure ([facility]) 09/16/2024 Moderate malnutrition (CMS/HCC) ([facility]) 09/12/2024 Acute on chronic congestive heart failure, unspecified heart failure type ([facility]) 09/10/2024 Financial difficulties 08/20/2024 Pulmonary HTN ([facility]) 08/19/2024 DELORES on CPAP 04/15/2024 Heavy tobacco smoker 04/15/2024 Cigarette smoker 04/15/2024 Personal history of smoking 04/15/2024 Paroxysmal atrial fibrillation ([facility]) 03/03/2024 Cervical spondylosis 03/02/2024 Non-pressure chronic ulcer of other part of right foot with unspecified severity (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) 02/17/2024 Alcohol abuse with withdrawal, uncomplicated ([facility]) 02/17/2024 Right arm numbness 02/13/2024 Persistent depressive disorder 02/13/2024 DELORES (obstructive sleep apnea) 02/13/2024 Poor compliance with medication 02/13/2024 On continuous oral anticoagulation 11/21/2023 Acute exacerbation of CHF (congestive heart failure) ([facility]) 11/12/2023 Medical non-compliance 11/12/2023 Anemia in other chronic diseases classified elsewhere 01/01/2023 Closed fracture of neck of left humerus with routine healing 12/31/2022 Hyponatremia 12/29/2022 COPD exacerbation (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) 07/17/2022 Permanent atrial fibrillation ([facility]) 08/25/2021 History of rib fracture 08/25/2021 Chronic hyponatremia 08/25/2021 Essential hypertension 08/25/2021 Alcohol consumption heavy 08/25/2021 COPD (chronic obstructive pulmonary disease) ([facility]) 08/25/2021 History of adenomatous polyp of colon 11/18/2019 Diverticulosis of large intestine without diverticulitis 10/27/2019 Compression fracture of thoracic vertebra with routine healing 10/07/2019 Osteoporosis 10/07/2019 Venous stasis dermatitis of left lower extremity 07/17/2017 Current moderate episode of major depressive disorder without prior episode ([facility]/HCC) 04/10/2017 Cor, pulmonale, acute (HCC) 02/01/2016 Raynaud phenomenon 09/10/2015 Acute on chronic hypoxic respiratory failure 2/2 to rhinovirus Streptococcus pneumoniae pneumonia from previous admission 05/21/25 Respiratory PCR (+) rhinovirus, enterovirus, MRSA PCR (+) for S. Aureus Bcx NG at 48 hours - Daily CBC, CMP - Monitor mental status, vital signs - ID consult - Recent MRSA bacteremia on vancomycin to end 07/05. 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 - Continue home Farxiga 10 mg daily - Continue Metoprolol succinate 75 mg BID - Hold home Losartan 25 mg daily - Hold home Spironolactone 25 mg daily - Strict I/Os - Daily weight DELORES Pulmonary HTN - Continue home autoBiPAP Atrial fibrillation Hx of DVT and PE - Continue home Eliquis 5 mg BID - Restart Metoprolol succinate 75 mg BID CAD - Hold home Rosuvastatin 40mg daily in the setting of transaminitis Transaminitis Abdomen US hepatomegaly, Liver doppler US patent blood vessels History of alcohol abuse, last drink > 1 week (-) Hepatitis workup from previous admission - Hold home Rosuvastatin 40mg daily - Monitor LFTs Chronic hyponatremia Na bl 128-130 - Monitor Na Normocytic anemia Hgb bl 11.5 Iron studies: Low TIBC, increased Ferritin and normal total Fe and saturation - Monitor CBC History of alcohol use - Continue thiamine 100 mg daily MDD - Hold home sertraline 100 mg daily in the setting of prolonged Qtc Prolonged QTc - Avoid Qtc prolonging medications FEN/GI/DVT IVF: None Electrolytes: Monitor and replace per protocols Diet: General GI PPX: No DVT Prophylaxis: No prophylaxis/Already on anticoagulation: eliquis Telemetry: Currently on Telemetry / Reason: A.fib, HFrEF DISPOSITION: Rash improvement, pending blood culture, monitor mental status and vital signs [1] apixaban, 5 mg, Oral, BID cefepime, 2,000 mg, IntraVENous, q8h chlorhexidine, , Topical, Daily collagenase, , Topical, Daily dapagliflozin, 10 mg, Oral, Daily dextromethorphan-guaiFENesin, 1 tablet, Oral, BID folic acid, 1 mg, Oral, Daily [Held by provider] furosemide, 40 mg, IntraVENous, BID insulin lispro, 0-12 Units, SubCUTAneous, TID WC And insulin lispro, 0-12 Units, SubCUTAneous, Nightly ipratropium-albuterol, 3 mL, Nebulization, q4h [Held by provider] losartan, 25 mg, Oral, Daily methylPREDNISolone sod suc (PF), 40 mg, IntraVENous, q12h metoprolol succinate XL, 75 mg, Oral, BID mometasone-formoterol, 2 puff, Inhalation, BID montelukast, 10 mg, Oral, Daily nicotine, 1 patch, TransDERmal, Daily pantoprazole, 40 mg, Oral, Nightly Or pantoprazole (ProtoNix) 40 mg in sodium chloride (PF) 0.9 % 10 mL injection, 40 mg, IntraVENous, Nightly [Held by provider] rosuvastatin, 40 mg, Oral, Daily [Held by provider] sertraline, 100 mg, Oral, Daily sodium chloride 0.9%, 5-40 mL, IntraVENous, q12h sodium chloride, 4 mL, Nebulization, BID [Held by provider] spironolactone, 25 mg, Oral, Daily thiamine, 100 mg, Oral, Daily torsemide, 20 mg, Oral, Daily [Held by provider] torsemide, 30 mg, Oral, BID vancomycin, 1,000 mg, IntraVENous, q24h [2] [3] PRN medications: acetaminophen OR acetaminophen, alteplase (Cathflo Activase) 2 mg in sterile water 2 mL injection, dextrose, dextrose, glucagon (rDNA), glucose, ipratropium-albuterol, polyethylene glycol (PEG) 3350, promethazine OR promethazine OR promethazine, sodium chloride, sodium chloride 0.9% Images from the original note were not included. Medical Teaching Service Progress Note Patient: Krystina Markham : 1955 Acct: [id number] PCP: Toi Davis MD Admitting Physician: Ashley Yang DO Admission Date: 06/03/2025 Admitting Diagnosis: Shortness of breath [R06.02] Hypoxemia [R09.02] COPD exacerbation (HCC) [J44.1] Acute on chronic congestive heart failure, unspecified heart failure type (HCC) [I50.9] Unit/Bed: B2-249/B2-249 A Hospital Day: 2 Code Status: Full Code Subjective: Overnight events: No significant overnight events. Hospital Course Patient is a 70 y.o. male with PmHx of COPD, HFimpEF, Afib s/p ICD extraction 9/, MRSA bacteremia PNA, medication noncompliance, chronic hyponatremia, transaminates, LBBB, alcoholism (last drink over a week ago), PE, DELORES, Raynaud's phenomenon. He presented via ambulance from SNF for acute-onset SOB. Of note, patient was recently hospitalized at [facility] (05/20-06/02) for septic shock 2/2 MRSA bacteremia and LLL PNA 2/2 strep pneumo requiring intubation and ICU level care. He was discharged to SNF with PICC line for vancomycin to end 07/05. Upon presentation, patient in acute respiratory distress, cyanotic with O2 sat 69%, tachycardic and tachypneic. Upon admission to [facility], noted to have hypotensive episodes responsive to fluids, met severe sepsis criteria. Cefepime started in addition to vancomycin. Respiratory PCR + for rhinovirus/enterovirus. Lactic acid normal. Blood culture no growth at 48 hours. On examination this morning, patient is oriented to place and self. Currently on 2.5L NC with some abdominal breathing, easily able to speak in full sentences. Patient noted to have significant erythema of face. Noted new erythematous, non pruritic rash of bilateral arms, chest, and back. Patient unsure of when rash and erythema started. States breathing feels about the same. Denies cough, chest pain, abdominal pain, pruritus. Objective: Vitals: 06/06/25 0511 06/06/25 0747 06/06/25 0905 06/06/25 0913 BP: 152/70 BP Location: Right arm Patient Position: Sitting Pulse: 80 95 86 Resp: 17 18 18 Temp: 36.4 C (97.5 F) TempSrc: Temporal SpO2: 98% 97% 97% Weight: 176 lb 2 oz (79.9 kg) Height: Temp (24hrs), Av.3 C (97.4 F), Min:36.1 C (97 F), Max:36.6 C (97.9 F) Intake/Output Summary (Last 24 hours) at 06/06/2025 1111 Last data filed at 06/06/2025 0900 Gross per 24 hour Intake 760 ml Output -- Net 760 ml Physical Exam Constitutional: General: He is not in acute distress. Appearance: Normal appearance. He is ill-appearing. He is not toxic-appearing or diaphoretic. HENT: Head: Normocephalic and atraumatic. Nose: Nose normal. Mouth/Throat: Mouth: Mucous membranes are moist. Eyes: Conjunctiva/sclera: Conjunctivae normal. Cardiovascular: Rate and Rhythm: Normal rate. Rhythm irregular. Heart sounds: Normal heart sounds. No murmur heard. No friction rub. No gallop. Pulmonary: Effort: No respiratory distress. Breath sounds: No stridor. Wheezing present. No rhonchi or rales. Comments: Using abdominal muscles Abdominal: General: Abdomen is flat. Bowel sounds are normal. There is no distension. Palpations: Abdomen is soft. Tenderness: There is no abdominal tenderness. There is no guarding. Skin: General: Skin is warm and dry. Capillary Refill: Capillary refill takes less than 2 seconds. Findings: Erythema and rash present. Comments: maculopapular rash of bilateral hands, chest, and back (see pictures below) and significant facial erythema Neurological: Mental Status: He is alert. Comments: Oriented to person and place Rash and erythema significantly more appreciable in person compared to images below Polanco: No Drains: No Central Line/Port: No Intubated: No Diet: Adult diet Regular; No Added Salt (3-4 gm); Low Fat (less than or equal to 50 gm/day); No Carbonated Beverages Medications: Scheduled Meds[1] Continuous Infusions: Continuous Meds[2] PRN Meds: PRN Meds[3] Labs: CBC: Results from last 7 days Lab Units 06/06/25 0053 06/05/25 0303 06/04/25 0211 06/04/25 0024 06/04/25 0020 06/02/25 0014 06/01/25 0018 05/31/25 0514 WBC AUTO 10*3/uL 7.1 7.1 -- -- 10.7 9.1 8.6 8.2 HEMOGLOBIN g/dL 11.5* 11.2* -- -- 12.1* 10.9* 10.7* 11.1* HEMOGLOBIN BG g/dl -- -- 13.0* < > -- -- -- -- HEMATOCRIT % 33.8* 33.4* -- -- 34.9* 31.7* 31.5* 32.9* PLATELETS 10*3/uL 236 259 -- -- 294 362 338 316 NEUTROS PCT AUTO % -- -- -- -- -- 74.4 73.8 75.7 LYMPHO PCT MAN % 5* 3* -- -- 4* -- -- -- LYMPHS PCT AUTO % -- -- -- -- -- 9.8* 9.6* 7.7* MONO PCT MAN % 0* 1* -- -- 2* -- -- -- MONOS PCT AUTO % -- -- -- -- -- 12.0 12.9 13.2* EOSINO PCT MAN % 1 -- -- -- -- -- -- -- EOS PCT AUTO % -- -- -- -- -- 1.7 1.4 1.2 < > = values in this interval not displayed. BMP: Results from last 7 days Lab Units 06/06/25 0053 06/05/25 0303 06/04/25 0020 SODIUM mmol/L 129* 132* 131* POTASSIUM mmol/L 5.0 4.6 4.5 CHLORIDE mmol/L 95* 97* 94* CO2 mmol/L 21* 23 24 BUN mg/dL 29* 30* 24* CREATININE mg/dL 0.92 1.08 1.10 GLUCOSE mg/dL 178* 180* 136* CALCIUM mg/dL 9.2 9.1 9.0 LIVER PROFILE: Results from last 7 days Lab Units 06/06/25 0053 06/05/25 0303 06/04/25 0020 ALK PHOS U/L 105 91 114 BILIRUBIN TOTAL mg/dL 0.3 0.3 0.6 PROTEIN TOTAL g/dL 6.9 6.8 7.1 ALT U/L 103* 118* 170* AST U/L 40* 53* 134* PT/INR: Results from last 7 days Lab Units 06/04/25 1059 APTT s 35.2* INR 1.1 CARDIAC ENZYMES: Procalcitonin: Lab Results Component Value Date PROCAL 0.35 (H) 06/06/2025 Glucose: Results from last 7 days Lab Units 06/06/25 0844 06/05/25202206/05/25 0630 06/04/25 2100 06/04/25 1614 06/04/25 1126 POCT GLUCOSE mg/dL 299* 254* 199* 209* 248* 298* ASSESSMENT/PLAN: Patient Active Problem List Diagnosis Date Noted Shortness of breath 06/04/2025 Heart failure (HCC) 06/04/2025 Sepsis (HCC) 06/04/2025 MRSA bacteremia 06/04/2025 Transaminitis 06/04/2025 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) 11/02/2024 Prolonged QT interval 11/02/2024 Acute hypercapnic respiratory failure ([facility]) 11/01/2024 Acute on chronic systolic (congestive) heart failure ([facility]) 09/16/2024 Moderate malnutrition (CMS/HCC) ([facility]) 09/12/2024 Acute on chronic congestive heart failure, unspecified heart failure type ([facility]) 09/10/2024 Financial difficulties 08/20/2024 Pulmonary HTN ([facility]) 08/19/2024 DELORES on CPAP 04/15/2024 Heavy tobacco smoker 04/15/2024 Cigarette smoker 04/15/2024 Personal history of smoking 04/15/2024 Paroxysmal atrial fibrillation ([facility]) 03/03/2024 Cervical spondylosis 03/02/2024 Non-pressure chronic ulcer of other part of right foot with unspecified severity (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) 02/17/2024 Alcohol abuse with withdrawal, uncomplicated ([facility]) 02/17/2024 Right arm numbness 02/13/2024 Persistent depressive disorder 02/13/2024 DELORES (obstructive sleep apnea) 02/13/2024 Poor compliance with medication 02/13/2024 On continuous oral anticoagulation 11/21/2023 Acute exacerbation of CHF (congestive heart failure) ([facility]) 11/12/2023 Medical non-compliance 11/12/2023 Anemia in other chronic diseases classified elsewhere 01/01/2023 Closed fracture of neck of left humerus with routine healing 12/31/2022 Hyponatremia 12/29/2022 COPD exacerbation (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) 07/17/2022 Permanent atrial fibrillation ([facility]) 08/25/2021 History of rib fracture 08/25/2021 Chronic hyponatremia 08/25/2021 Essential hypertension 08/25/2021 Alcohol consumption heavy 08/25/2021 COPD (chronic obstructive pulmonary disease) ([facility]) 08/25/2021 History of adenomatous polyp of colon 11/18/2019 Diverticulosis of large intestine without diverticulitis 10/27/2019 Compression fracture of thoracic vertebra with routine healing 10/07/2019 Osteoporosis 10/07/2019 Venous stasis dermatitis of left lower extremity 07/17/2017 Current moderate episode of major depressive disorder without prior episode ([facility]) 04/10/2017 Cor, pulmonale, acute ([facility]) 02/01/2016 Raynaud phenomenon 09/10/2015 Acut on Chronic Hypoxic Respiratory Failure meeting sepsis criteria COPDe 2/ Rhinovirus/Enterovirus Denies home O2 use - Continue home dulers 2 puffs BID and Spiriva 2 puffs daily - Duonebs q4h and PRN - Methylprednisolone decreased to 40 mg IV BID - Wean supplemental O2 - Home O2 eval prior to discharge - Pulmonology consulted, appreciate recs HFimpEF S/P removal of ICD 05/25/25 in setting of bacteremia TTE 06/04/25: EF 45%, mildly reduced LV and RV systolic function, mild-moderate TR - Continue Farxiga 10 mg daily - Resume home metoprolol succinate 75 mg BID - Start torsemide 20 mg daily, home dose of 30 mg daily - Continue to hold home spironolactone 25 mg daily - Continue to hold home Losartan 25 mg daily - Strict I/O - Daily weights Recent MRSA bacteremia Maculopapular rash, Facial erythema - Per ID, okay to continue both cefepime and vancomycin in setting of rash - Continue vancomycin with tentative end date of 07/05 - Continue cefepime for gram negative coverage - ID following, appreciate recs Hyperglycemia Likely in setting of steroid use A1c (06/04/25) 6.0 - Medium dose sliding scale insulin - Continue to monitor Transaminitis Abdomen US 06/01/25: hepatomegaly, liver doppler US patent blood vessels Hx of alcohol abuse, last drink >1 week ago Negative hepatitis workup from previous admission - Continue to hold home rosuvastatin 40 mg daily - Monitor LFTs Atrial Fibrillation Hx of DVT and PE - Continue home Eliquis 5 mg BID - Resume home metoprolol succinate 75 mg BID Chronic Hyponatremia Baseline 128-130 - Monitor Na Normocytic Anemia Baseline Hgb 11.5 - Iron normal, increased ferritin potentially an acute phase reactant - Monitor CBC Prolonged Qtc Qtc 566 - Avoid Qtc prolonging medications MDD - Hold home sertraline 100 mg daily in setting of prolonged QTc CAD - Hold home Rosuvastatin 40 mg daily in setting of transaminitis DELORES Pulmonary HTN - Continue home auto BiPAP Hx of Raynaud Phenomenon FEN/GI/DVT IVF: None Electrolytes: Monitor and replace per protocols Diet: General GI PPX: No DVT Prophylaxis: No prophylaxis/Already on anticoagulation: Eliquis Telemetry: Currently on Telemetry / Reason: Atrial fibrillation, HFrEF DISPOSITION: Monitor vital signs and mental status [1] apixaban, 5 mg, Oral, BID cefepime, 2,000 mg, IntraVENous, q8h chlorhexidine, , Topical, Daily collagenase, , Topical, Daily dapagliflozin, 10 mg, Oral, Daily dextromethorphan-guaiFENesin, 1 tablet, Oral, BID folic acid, 1 mg, Oral, Daily [Held by provider] furosemide, 40 mg, IntraVENous, BID insulin lispro, 0-12 Units, SubCUTAneous, TID WC And insulin lispro, 0-12 Units, SubCUTAneous, Nightly ipratropium-albuterol, 3 mL, Nebulization, q4h [Held by provider] losartan, 25 mg, Oral, Daily methylPREDNISolone sod suc (PF), 40 mg, IntraVENous, q12h metoprolol succinate XL, 75 mg, Oral, BID mometasone-formoterol, 2 puff, Inhalation, BID montelukast, 10 mg, Oral, Daily nicotine, 1 patch, TransDERmal, Daily pantoprazole, 40 mg, Oral, Nightly Or pantoprazole (ProtoNix) 40 mg in sodium chloride (PF) 0.9 % 10 mL injection, 40 mg, IntraVENous, Nightly [Held by provider] rosuvastatin, 40 mg, Oral, Daily [Held by provider] sertraline, 100 mg, Oral, Daily sodium chloride 0.9%, 5-40 mL, IntraVENous, q12h sodium chloride, 4 mL, Nebulization, BID [Held by provider] spironolactone, 25 mg, Oral, Daily thiamine, 100 mg, Oral, Daily torsemide, 20 mg, Oral, Daily [Held by provider] torsemide, 30 mg, Oral, BID vancomycin, 1,000 mg, IntraVENous, q24h [2] [3] PRN medications: acetaminophen OR acetaminophen, alteplase (Cathflo Activase) 2 mg in sterile water 2 mL injection, dextrose, dextrose, glucagon (rDNA), glucose, ipratropium-albuterol, polyethylene glycol (PEG) 3350, promethazine OR promethazine OR promethazine, sodium chloride, sodium chloride 0.9% Cosigned by Ashley Yang DO at 06/06/2025 2:29 PM EDT Pharmacy to Dose Vancomycin - Progress Note Recent Labs 06/04/25 0020 06/05/25 0303 06/06/25 0053 BUN 24* 30* 29* CREATININE 1.10 1.08 0.92 Lab Results Component Value Date [facility] 27.4 06/06/2025 [facility] 21.8 06/05/2025 Doses, serum creatinine, and vancomycin levels interfaced automatically to [employer] and data has been analyzed and interpreted. Infectious Diagnosis: bloodstream infection Est CrCl: 85.7 mL/min (Cockcroft-Gault) Assessment: Current regimen vancomycin 1000 mg every 24 hours. Predicted AUC = 481 mg/L*hr (goal 400-600 mg/L*hr) Plan: Is the current dose therapeutic? [x] Yes - obtain next level on 06/13/25unless predicted AUC is sub-/supra-therapeutic or change in serum creatinine. Trend serum creatinine. Trend AUC using Bayesian Modeling. Orders placed. DATE: 06/06/25 TIME: 10:13 AM Tanja Benitez RPh Clinical Pharmacist Available via Secure Chat Images from the original note were not included. [facility] - Infectious Diseases Attending Progress Note Subjective: Follow up for sepsis, acute hypoxic respiratory failure, recent MRSA bacteremia and Strep pneumoniae pneumonia. He was alert, sitting on a chair, felt well, no sputum, still SOB, using 5L O2 in [place], denied fever, chill or any new complaint, he appeared chronically ill. He was admitted on 06/04/25 from a nursing facility for worsening SOB, wheezing, cough, headache for a day or two; denied fever, chest pain, abdominal pain, vomiting or diarrhea; in ED on presentation, he was tachycardic P 97, tachypneic R 29, hypoxic Pox 93%, in early AM today he was hypotensive BP 86/55; CXR showed cardiomegaly, interstitial coarsening, no focal consolidation, pleural effusion or pneumothorax; labs showed hyponatremia Na 131, transaminitis ALT 170, AST 134, alb 2.9, elevated BNP, resp pcr detected rhinovirus. He was recently hospitalized from 05/20-06/02/25 at [facility] with septic shock, MRSA bacteremia and Strep pneumoniae pneumonia, he was extubated on 05/22, he underwent ICD lead extraction/ replacement 05/26, PICC was placed 06/02, [facility] was [facility] on vancomycin till 07/05/25. He has h/o COPD, HFrEF (EF 21% in 11/2023), ICD, A-fib on eliquis, Hx of DVT and PE, Hx of ETOH. He was examined; notes, labs, imaging were reviewed; treatment plan was discussed; clinical informations were documented in electronic record. Objective: Vitals: Patient Vitals for the past 24 hrs: BP Temp Temp src Pulse Resp SpO2 Weight 06/05/25 1654 142/74 36.6 C (97.9 F) Temporal 78 16 92 % -- 06/05/25 1216 -- -- -- 93 16 93 % -- 06/05/25 0913 -- -- -- 92 18 92 % -- 06/05/25 0837 123/67 36.6 C (97.8 F) Temporal 92 16 95 % -- 06/05/25 0535 -- -- -- -- -- -- 77.4 kg (170 lb 9.6 oz) 06/05/25 0400 -- -- -- 85 18 92 % -- 06/05/25 0326 120/75 36.4 C (97.6 F) Temporal 82 22 94 % -- 06/05/25 0020 125/71 36.4 C (97.5 F) Temporal 60 24 92 % -- 06/04/25 2328 -- -- -- 76 -- 95 % -- 06/04/25 2322 -- -- -- 76 18 93 % -- 06/04/252014 -- -- -- 88 18 93 % -- 06/04/25 1930 96/70 36.3 C (97.3 F) Temporal -- 19 91 % -- Physical Exam Vitals and nursing note reviewed. Constitutional: Appearance: Normal appearance. He is well-developed and normal weight. He is not toxic-appearing. Comments: Patient appears uncomfortable because of breathing problem. HENT: Head: Normocephalic and atraumatic. Right Ear: External ear normal. Left Ear: External ear normal. Nose: Nose normal. Mouth/Throat: Mouth: Mucous membranes are moist. Pharynx: Oropharynx is clear. Eyes: Extraocular Movements: Extraocular movements intact. Conjunctiva/sclera: Conjunctivae normal. Pupils: Pupils are equal, round, and reactive to light. Cardiovascular: Rate and Rhythm: Normal rate and regular rhythm. Heart sounds: Normal heart sounds. No murmur heard. Pulmonary: Effort: Respiratory distress decreased. Breath sounds: Wheezing and rhonchi present. Comments: Tachypnea decreased. He has diffuse coarse wheezes and rhonchi. Abdominal: General: Bowel sounds are normal. Palpations: Abdomen is soft. Tenderness: There is no abdominal tenderness. There is no guarding or rebound. Musculoskeletal: General: No swelling or tenderness. Normal range of motion. Cervical back: Normal range of motion and neck supple. Right lower leg: No edema. Left lower leg: No edema. Skin: General: Skin is warm and dry. Neurological: General: No focal deficit present. Mental Status: He is alert and oriented to person, place, and time. Cranial Nerves: Cranial nerves 2-12 are intact. Sensory: Sensation is intact. Motor: Motor function is intact. Coordination: Coordination is intact. Psychiatric: Mood and Affect: Mood normal. Labs: Recent Labs 06/04/25 0020 06/04/25 0201 06/05/25 0303 NA 131* -- 132* K 4.5 -- 4.6 CL 94* -- 97* CO2 24 -- 23 BUN 24* -- 30* CREATININE 1.10 -- 1.08 GLUCOSE 136* -- 180* CALCIUM 9.0 -- 9.1 PROT 7.1 -- 6.8 BILITOT 0.6 -- 0.3 ALKPHOS 114 -- 91 AST 134* -- 53* ALT 170* -- 118* PROCAL -- 0.44* -- Recent Labs 06/04/25 0020 06/04/25 0024 06/04/25 0211 06/05/25 0303 WBC 10.7 -- -- 7.1 HGB 12.1* 13.1* 13.0* 11.2* HCT 34.9* -- -- 33.4* PLT 294 -- -- 259 LYMPHOPCT 4* -- -- 3* MONOPCT 2* -- -- 1* BASOPCT 1 -- -- 1 Micro: No results for input(s): "COVID19" in the last 72 hours. 06/04/2025 1502 06/04/2025 2004 MRSA by PCR [[id number]] (Abnormal) ESwab from Nasal Final result Component Value Staphylococcus aureus Detected Abnormal mecA gene Detected Abnormal 06/04/2025 0842 06/05/2025 1102 Blood culture Site #1 - Suspected Infection [[id number]] Blood, Venous Preliminary result Component Value Blood Culture No growth at 24 hours P 06/04/2025 0842 06/05/2025 1102 Blood culture Site #2 - Suspected Infection [[id number]] Blood, Venous Preliminary result Component Value Blood Culture No growth at 24 hours P 06/04/2025 0510 06/04/2025 0855 Respiratory Pathogens Panel by PCR [[id number]] (Abnormal) Swab from Nasopharynx Final result Component Value SARS-CoV-2 Not Detected Adenovirus Not Detected Coronavirus HKU1 Not Detected Coronavirus NL63 Not Detected Coronavirus 229E Not Detected Coronavirus OC43 Not Detected Human Metapneumovirus Not Detected Human Rhinovirus/Enterovirus Detected Abnormal Influenza A Not Detected Influenza B Not Detected Parainfluenza 1 Not Detected Parainfluenza 2 Not Detected Parainfluenza 3 Not Detected Parainfluenza 4 Not Detected Respiratory Syncytial Virus Not Detected Bordetella pertussis Not Detected Bordetella parapertussis Not Detected Chlamydia pneumoniae Not Detected Mycoplasma pneumoniae Not Detected 06/04/2025 0021 06/04/2025 0113 COVID-19, Flu A/B, and RSV Combo [[id number]] Swab from Nasopharynx Final result Component Value SARS-CoV-2 Not Detected Respiratory Syncytial Virus Not Detected Influenza A Not Detected Influenza B Not Detected 06/01/2025 1243 06/04/2025 210 Legionella and Streptococcus Urine Antigen [[id number]] Urine, Clean Catch Final result Component Value No component results 06/01/2025 1243 06/04/2025 2103 Legionella and Streptococcus Urine Antigen [[id number]] Urine, Clean Catch Final result Component Value Legionella pneumophila Ag Not Detected Streptococcus pneumoniae Ag Not Detected 05/24/2025 0540 05/29/2025 09 Blood culture Site #1 - Assess for effectiveness of treatment [[id number]] Blood, Venous Final result Component Value Blood Culture No growth at 5 days 05/24/2025 0540 05/29/2025 0901 Blood culture Site #2 - Assess for effectiveness of treatment [[id number]] Blood, Venous Final result Component Value Blood Culture No growth at 5 days 05/22/2025 1246 05/25/2025 [facility] Blood culture Site #1 - Suspected Infection [[id number]] (Abnormal) Blood, Venous Final result Component Value Blood Culture Staphylococcus aureus Panic ID consult required per med staff policy dated 2021. For identification and/or sensitivity, refer to culture collected on: 05/20/2025 at 2220 (25[facility]-[id number]) This is an edited result. Previous organism was Gram-positive cocci on 05/23/2025 at 0629 EDT. PBP2A Positive 05/22/2025 1246 05/25/2025 1038 Blood culture Site #2 - Suspected Infection [[id number]] (Abnormal) Blood, Venous Final result Component Value Blood Culture Staphylococcus aureus Panic ID consult required per med staff policy dated 2021. For identification and/or sensitivity, refer to culture collected on: 05/20/2025 at 2220 ([facility]-[id number]) This is an edited result. Previous organism was Gram-positive cocci on 05/23/2025 at 1133 EDT. PBP2A Positive 05/21/2025 0320 05/25/2025 1129 Respiratory culture and Stain [[id number]] (Abnormal) Sputum Final result Component Value Respiratory culture Rare respiratory elsa present. Few Streptococcus pneumoniae Abnormal Gram Stain Result Moderate Ciliated epithelial cells Abnormal No polymorphonuclear leukocytes seen Abnormal Many Gram positive cocci in pairs and chains Abnormal 05/21/202531905/21/2025 0926 Pneumonia PCR Panel [[id number]] Sputum Final result Component Value Staphylococcus aureus Not Detected Streptococcus agalactiae Not Detected Streptococcus pneumoniae Not Detected Streptococcus pyogenes Not Detected Haemophilus influenzae Not Detected Moraxella catarrhalis Not Detected Acinetobacter baumannii complex Not Detected Enterobacter cloacae complex Not Detected Escherichia coli Not Detected Klebsiella (Enterobacter) aerogenes Not Detected Klebsiella oxytoca Not Detected Klebsiella pneumoniae Not Detected Proteus spp Not Detected Pseudomonas aeruginosa Not Detected Serratia marcescens Not Detected Chlamydia pneumoniae Not Detected Legionella pneumophila Not Detected Mycoplasma pneumoniae Not Detected Adenovirus Not Detected Coronavirus Not Detected Human Metapneumovirus Not Detected Human Rhinovirus/Enterovirus Not Detected Influenza A Not Detected Influenza B Not Detected Parainfluenza virus Not Detected Respiratory Syncytial Virus Not Detected 05/20/2025 2347 05/21/2025 0201 Legionella and Streptococcus Urine Antigen [[id number]] Urine, Clean Catch Final result Component Value No component results 05/20/2025 2347 05/21/2025 0434 Legionella and Streptococcus Urine Antigen [[id number]] (Abnormal) Urine, Clean Catch Final result Component Value No component results 05/20/2025 23405/21/2025 0434 Legionella and Streptococcus Urine Antigen [[id number]] (Abnormal) Urine, Clean Catch Final result Component Value Legionella pneumophila Ag Not Detected Streptococcus pneumoniae Ag Detected Abnormal 05/20/2025 2232 05/20/2025 2316 SARS-CoV-2, Flu A/B, and RSV Combo [[id number]] Swab from Nasopharynx Final result Component Value SARS-CoV-2 Not Detected Respiratory Syncytial Virus Not Detected Influenza A Not Detected Influenza B Not Detected 05/20/2025223105/21/2025 0636 Respiratory Pathogens Panel by PCR [[id number]] Swab from Nasopharynx Final result Component Value SARS-CoV-2 Not Detected Adenovirus Not Detected Coronavirus HKU1 Not Detected Coronavirus NL63 Not Detected Coronavirus 229E Not Detected Coronavirus OC43 Not Detected Human Metapneumovirus Not Detected Human Rhinovirus/Enterovirus Not Detected Influenza A Not Detected Influenza B Not Detected Parainfluenza 1 Not Detected Parainfluenza 2 Not Detected Parainfluenza 3 Not Detected Parainfluenza 4 Not Detected Respiratory Syncytial Virus Not Detected Bordetella pertussis Not Detected Bordetella parapertussis Not Detected Chlamydia pneumoniae Not Detected Mycoplasma pneumoniae Not Detected 05/20/2025221905/23/2025 0727 Blood culture Site #1 - Suspected Infection [[id number]] (Abnormal) Blood, Venous Final result Component Value Blood Culture Staphylococcus aureus Panic Methicillin-resistant Staphylococcus aureus (MRSA) ID consult required per med staff policy dated 2021. This is an edited result. Previous organism was Gram-positive cocci on 05/21/2025 at 1345 EDT. 05/20/2025221905/23/2025 0727 Blood culture Site #2 - Suspected Infection [[id number]] (Abnormal) Blood, Venous Final result Component Value Blood Culture Staphylococcus aureus Panic ID consult required per med staff policy dated 2021. For identification and/or sensitivity, refer to culture collected on: 05/20/2025 at 2220 ([facility]-[id number]). This is an edited result. Previous organism was Gram-positive cocci on 05/21/2025 at 1345 EDT. PBP2A Positive 05/20/2025221905/21/2025 1345 Blood Culture Identification - Anaerobic [[id number]] (Abnormal) Blood, Venous Final result Component Value Staphylococcus aureus Detected Abnormal mecA/C and MREJ (MRSA) Detected Abnormal Lines: Rt arm PICC (06/02) Radiography/Echo/Other: Procedure Component Value Units Date/Time CT chest angiogram w and/or wo IV contrast [[id number]] Collected: 06/04/25 0325 Order Status: Completed Updated: 06/04/25342 Narrative: Patient Name: KRYSTINA MARKHAM : 1955 [facility]#: [id number] Exam Date/Time: 06/04/2025 02:20 Procedure: CT CHEST ANGIOGRAM W AND/OR WO IV CONTRAST Ordering Provider: STAFFORD TARAS Reason For Exam: Pulmonary embolism (PE) suspected, positive D-dimer EXAMINATION: CTA of the chest with intravenous contrast, pulmonary embolism protocol. EXAM DATE & TIME: 06/04/2025 2:20 AM EDT INDICATION: Pulmonary embolism (PE) suspected, positive D-dimer ADDITIONAL INFORMATION: 70-year-old male with clinical suspicion for pulmonary embolism presents for evaluation COMPARISON: CT chest on pelvis dated 05/20/2025 LIMITATIONS: As below TECHNIQUE: CT angiogram of the chest was performed with intravenous contrast. Thin isotropic axial imaging was obtained from above the lung apices through the level of the adrenal glands during dynamic infusion of intravenous contrast for evaluation of the vessels. Multiplanar and 3-D maximum intensity projection reformulations were created from the raw CT data with independent workstation software by the radiologist. These were interpreted in conjunction with the axial images to render the findings listed below. Before infusion of intravenous contrast, radiology personnel investigated the possibility of an allergic history and any history of reaction to iodinated contrast material. Dose reduction was employed with automated exposure control. FINDINGS: Quality Assurance Tech image: Unremarkable. Exam Quality: Overall exam quality is suboptimal Pulmonary arterial enhancement is suboptimal, the breath-hold is adequate and there are some artifacts impacting image quality. Pulmonary Arteries: There are no filling defects within the pulmonary arterial system to suggest pulmonary embolus. There is prominence of the main pulmonary arteries, which can be seen in the setting of pulmonary arterial hypertension. Cardiovascular: The heart is enlarged. Atherosclerotic vascular calcifications are present in the aortic arch and coronary arteries. Mediastinum/pericardium: Unremarkable. Thyroid: Unremarkable. Tracheobronchial tree: Debris is present in the lower lobe bronchioles. Pleura: No pleural effusion or pneumothorax. Lungs: Moderate to severe centrilobular and paraseptal emphysema is seen. There is also dependent and bibasilar scarring/atelectasis. Persistent, albeit improved consolidation near the posterior left lung base. Nodules: No nodules are present that require follow up. Lymph nodes: No emerging adenopathy. Included images of the upper abdomen: Unremarkable. Visualized musculoskeletal structures: Chronic compression fractures of the T6, T7, T8, T9, T12, L1 and L2 vertebral bodies are seen, and appear similar compared to the prior study. Multiple posterior bilateral rib deformities are also noted. Impression: 1. Negative for acute pulmonary embolus. 2. The RV/LV ratio is <1. This is considered normal*. 3. Persistent, albeit improved consolidation near the posterior left lung base. 4. Additional chronic findings as above. *Reference: Campos Nayak., Estefania Wilson., Letty Membreno., Dimitris Ellis., & Mai, Reggie Nash. (2006). Can CT pulmonary angiography allow assessment of severity and prognosis in patients presenting with pulmonary embolism? What the radiologist needs to know. Radiographics, 26(1), 23-39. Notes: The short axis of the right ventricle is measured at the level of the tricuspid valve from inner wall to inner wall at its widest point. The short axis of the left ventricle is measured at the level of the mitral valve from inner wall to inner wall at its widest point. Note that the short axes of the right ventricle and left ventricle may be located at different axial CT levels. RV/LV diameter ratio <1: normal RV/LV diameter ratio >1: mildly abnormal RV/LV diameter ratio >1.5: severely abnormal Report Dictated on Electronically Signed By: Carmine Caraballo MD Electronically Signed Date/Time: 06/04/2025 3:42 AM EDT XR chest 1 view [[id number]] Collected: 06/04/25132 Order Status: Completed Updated: 06/04/25136 Narrative: Patient Name: KRYSTINA MARKHAM : 1955 Exam Date/Time: 06/04/2025 00:06 Procedure: XR CHEST 1 VIEW Ordering Provider: STAFFORD TARAS Reason For Exam: DYSPNEA EXAMINATION: XR chest AP. EXAM DATE & TIME: 06/04/2025 12:06 AM EDT INDICATION: DYSPNEA ADDITIONAL INFORMATION: 70-year-old male with dyspnea presents for evaluation COMPARISON: Chest x-rays dated 06/02/2025, 05/26/2025 and 05/23/2025 TECHNIQUE: AP view of the chest was obtained. FINDINGS: Lines/support devices: Cardiac leads project over the chest, somewhat limiting evaluation. Right arm PICC is noted with its distal tip near the SVC. This is looped in the right axillary region (only partially imaged). Cardiomediastinal silhouette: The heart is borderline enlarged. Lungs/pleura: Interstitial coarsening is present. No focal consolidation, pleural effusion or pneumothorax. Osseous structures: Degenerative changes of the spine and shoulders are seen. No acute osseous abnormality is demonstrated. Remote deformity of the left humeral head/neck is seen. Bones are osteopenic. Other findings: None. Impression: 1. Right arm PICC is looped in the right axillary region (only partially imaged). 2. Cardiomegaly. Report Dictated on Electronically Signed By: Carmine Caraballo MD Electronically Signed Date/Time: 06/04/2025 1:36 AM EDT XR chest 1 view [[id number]] Collected: 06/02/251619 Order Status: Completed Updated: 06/02/251622 Narrative: [facility] 1955 [id number] Exam Date/Time: 06/02/2025 16:13 Procedure: XR CHEST 1 VIEW Ordering Provider: BERG CAMERON Reason For Exam: PICC placement PORTABLE CHEST X-RAY CLINICAL INDICATION: PICC placement A portable frontal view of the chest was obtained. COMPARISON: 05/26/2025 FINDINGS: Heart size is enlarged. Right-sided PICC line terminates near the junction of superior vena cava and right atrium. Chronic interstitial changes are noted within the lungs. No focal consolidation is seen. There is no large pleural effusion or pneumothorax. Old right rib and bilateral shoulder deformities are again noted. There are degenerative changes of the spine. Impression: Right-sided PICC line terminates in the junction of the superior vena cava and right atrium. Cardiomegaly, similar to the prior study. Chronic interstitial changes within the lungs. Report Dictated on Electronically Signed By: Charlie Carter MD Electronically Signed Date/Time: 06/02/2025 4:21 PM EDT 05/26/25 TTE: Interpretation Summary Show Result Comparison Left Ventricle: Left ventricle is moderately dilated. Severely reduced left ventricular systolic function. Severe global hypokinesis present. Right Ventricle: Right ventricle is severely dilated. Severely reduced systolic function. Tricuspid Valve: Moderate (2+) regurgitation. Moderately elevated RVSP. RVSP is 44 mmHg. Right Atrium: Right atrium is severely dilated. Echo Findings Left Ventricle Left ventricle is moderately dilated. Severely reduced left ventricular systolic function. Severe global hypokinesis present. Right Ventricle Right ventricle is severely dilated. Severely reduced systolic function. Right Atrium Right atrium is severely dilated. Tricuspid Valve Moderate (2+) regurgitation. Moderately elevated RVSP. RVSP is 44 mmHg. IVC/Hepatic Veins IVC diameter is dilated and decreases greater than 50% during inspiration; therefore the estimated right atrial pressure is intermediate (~8 mmHg). Pericardium Evidence of prominent epicardial fat. No pericardial effusion. Study Details Image quality: fair. Heart rate: 84 bpm. Blood pressure: 130/80 mmHg. Technical qualifiers: Technically difficult study due to low parasternal window. No contrast was given. Echo performed by Tri[facility] cristian Camacho under direct supervision. Antimicrobials, Start/End Dates: Cefepime 06/04- Vanco 05/21- Impression: Sepsis. Acute on chronic hypoxic respiratory failure. +Rhinovirus/Enterovirus. +MRSA pcr. Recent MRSA bacteremia on vancomycin to end 07/05. Recent strep pneumoniae pneumonia. Treated. HFrEF 2/2 NICM. ICD lead extraction/replacement 05/26/25. COPD/ emphysema. On 2L home O2. Plan: Pt was admitted sick due to sepsis with acute on chronic hypoxic respiratory failure requiring 5L O2. Pt afebrile, hypotension improved, but hypoxia requiring 5L O2, more O2 than his base line 2L. Resp pcr detected Human Rhinovirus/Enterovirus and nose pcr +MRSA. Recent legionella ag -neg. Sputum could not be obtained for cx and pneumonia pcr. Checl procal in AM. Continue cefepime for a short duration, and vancomycin through 07/05/25, as scheduled by Dr. Ngo. High level complexity medical decision making. Will follow. Total time of 50 minutes on this day of encounter spent on, but not limited to review of tests, medical records , complex history , review of external medical records, paper and electronic, counseling and education (patient, family member, caregiver), ordering medications, tests, and procedures, communication with other health care professions, independent interpretation of tests, care coordination, arrangement of outpatient antimicrobial therapy, post-hospitalization therapy and follow-up, and counseling for risks, benefits, and consideration of use of antimicrobials. Images from the original note were not included. Medical Teaching Service Overnight Summary [facility] PCU [address] [facility] [address] Dept: [phone] Loc: [phone] Patient: Krystina Markham : 1955 Acct: [id number] PCP: Toi Davis MD Admitting Physician: Ashley Yang DO Admission Date: 06/03/2025 Admitting Diagnosis: Shortness of breath [R06.02] Hypoxemia [R09.02] COPD exacerbation (HCC) [J44.1] Acute on chronic congestive heart failure, unspecified heart failure type (HCC) [I50.9] Unit/Bed: [facility]249/[facility] A Hospital Day: 2 Code Status: Full Code Pt was monitored throughout the night with bedside rounding. Acute events addressed overnight: None AoC respiratory failure: Now on 4 L -Wean oxygen -Lasix 20 mg at 2100. BP's were 138/81- was still on 5 L NC -Blood cultures no growth in 24 hrs -ID: Continue Cefepime and Vanc -Procal am- Elevated 0.35 BP -All meds held Anemia -B12, iron, TIBC and ferritin on 06/06 -Ferritin: 633 -B12 589 wnl -Iron: 74 -TIBC: 200 (L) -Iron Sat 37 PICC line issues Physical exam notable for: Visit Vitals BP 149/83 (BP Location: Left arm, Patient Position: Sitting) Pulse 77 Temp 36.1 C (97 F) (Temporal) Resp 18 Ht 5' 8" (1.727 m) Wt 176 lb 2 oz (79.9 kg) SpO2 96% BMI 26.78 kg/m Smoking Status Former BSA 1.96 m Issues requiring daytime follow-up: -Home O2 evaluation -Consider restarting BP meds on 06/06 starting with Metoprolol and watch for BP's -B12 -Iron and TIBC -Ferritin -Blood cultures -Procal am Any notable events can be found as significant event notes if needed. Pt handoff was made to day-team with pertinent information for pt's case and care. Images from the original note were not included. Medical Teaching Service Progress Note Patient: Krystina Markham : 1955 Acct: [id number] PCP: Toi Davis MD Admitting Physician: Ashley Yang DO Admission Date: 06/03/2025 Admitting Diagnosis: Shortness of breath [R06.02] Hypoxemia [R09.02] COPD exacerbation (HCC) [J44.1] Acute on chronic congestive heart failure, unspecified heart failure type (HCC) [I50.9] Unit/Bed: B2-249/B2-249 A Hospital Day: 1 Code Status: Full Code Subjective: Overnight events: No significant overnight events. Patient seen awake at bedside. Reports feeling better. Denies shortness of breath, chest pain, productive cough. Good appetite. Able to walk to the bathroom. No urinary issues. Able to pass gas but no bowel movement yet. 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 Admitted last 05/21/25 for sepsis 2/2 MRSA bacteremia and Streptococcus pneumoniae pneumonia, extubated on 05/22/25, and was discharged to SNF on 06/02 with a PICC line for vancomycin until 07/05/25. At SNF, patient noted to be in acute respiratory distress, cyanotic with O2 saturation 69%, tachypneic and tachycardic. Admitted to [facility]. On admission, noted to have hypotensive episodes. Patient met severe sepsis criteria. Cefepime started in addition to Vancomycin. Respiratory PCR (+) for rhinovirus/enterovirus. Lactic acid normal. Hypotension responsive to fluids. On hospital day 2, noted improvement in shortness of breath. Blood culture pending. Objective: Vitals: 06/05/25 0400 06/05/25 0535 06/05/25 0837 06/05/25 0913 BP: 123/67 BP Location: Left arm Patient Position: Sitting Pulse: 85 92 92 Resp: 18 16 18 Temp: 36.6 C (97.8 F) TempSrc: Temporal SpO2: 92% 95% 92% Weight: 170 lb 9.6 oz (77.4 kg) Height: Temp (24hrs), Av.3 C (97.3 F), Min:35.8 C (96.5 F), Max:36.6 C (97.8 F) Intake/Output Summary (Last 24 hours) at 06/05/2025 1031 Last data filed at 06/05/2025 0656 Gross per 24 hour Intake 2000 ml Output 470 ml Net 1530 ml Physical Exam Constitutional: Appearance: He is not ill-appearing. Cardiovascular: Rate and Rhythm: Normal rate. Rhythm irregular. Heart sounds: No gallop. Pulmonary: Breath sounds: No decreased air movement. Wheezing (both lung diggs but noted improvement) present. Comments: Speaks in full sentences Abdominal: General: Bowel sounds are normal. There is no distension. Palpations: Abdomen is soft. Tenderness: There is no abdominal tenderness. Musculoskeletal: Right lower leg: No edema. Left lower leg: No edema. Skin: Capillary Refill: Capillary refill takes less than 2 seconds. Neurological: Mental Status: He is alert. Polanco: No Drains: No Central Line/Port: PICC line, right brachial vein Intubated: No Diet: Adult diet Regular; No Added Salt (3-4 gm); Low Fat (less than or equal to 50 gm/day); No Carbonated Beverages Medications: Scheduled Meds[1] Continuous Infusions: Continuous Meds[2] PRN Meds: PRN Meds[3] Labs: CBC: Results from last 7 days Lab Units 06/05/2530206/04/25 0211 06/04/25 0024 06/04/25 0020 06/02/25 0014 06/01/25 0018 05/31/25 0514 WBC AUTO 10*3/uL 7.1 -- -- 10.7 9.1 8.6 8.2 HEMOGLOBIN g/dL 11.2* -- -- 12.1* 10.9* 10.7* 11.1* HEMOGLOBIN BG g/dl -- 13.0* 13.1* -- -- -- -- HEMATOCRIT % 33.4* -- -- 34.9* 31.7* 31.5* 32.9* PLATELETS 10*3/uL 259 -- -- 294 362 338 316 NEUTROS PCT AUTO % -- -- -- -- 74.4 73.8 75.7 LYMPHO PCT MAN % 3* -- -- 4* -- -- -- LYMPHS PCT AUTO % -- -- -- -- 9.8* 9.6* 7.7* MONO PCT MAN % 1* -- -- 2* -- -- -- MONOS PCT AUTO % -- -- -- -- 12.0 12.9 13.2* EOS PCT AUTO % -- -- -- -- 1.7 1.4 1.2 BMP: Results from last 7 days Lab Units 06/05/2530206/04/251906/02/25 0014 SODIUM mmol/L 132* 131* 131* POTASSIUM mmol/L 4.6 4.5 4.2 CHLORIDE mmol/L 97* 94* 94* CO2 mmol/L 23 24 28 BUN mg/dL 30* 24* 24* CREATININE mg/dL 1.08 1.10 0.91 GLUCOSE mg/dL 180* 136* 98 CALCIUM mg/dL 9.1 9.0 8.6* LIVER PROFILE: Results from last 7 days Lab Units 06/05/2530206/04/251906/02/25 0014 ALK PHOS U/L 91 114 114 BILIRUBIN TOTAL mg/dL 0.3 0.6 0.6 PROTEIN TOTAL g/dL 6.8 7.1 6.3* ALT U/L 118* 170* 187* AST U/L 53* 134* 247* PT/INR: Results from last 7 days Lab Units 06/04/25 1059 APTT s 35.2* INR 1.1 CARDIAC ENZYMES: Procalcitonin: Lab Results Component Value Date PROCAL 0.44 (H) 06/04/2025 Glucose: Results from last 7 days Lab Units 06/05/25 0630 06/04/25 2100 06/04/25 1614 06/04/25 1126 06/04/25 0820 POCT GLUCOSE mg/dL 199* 209* 248* 298* 169* ASSESSMENT/PLAN: Patient Active Problem List Diagnosis Date Noted Shortness of breath 06/04/2025 Heart failure ([facility]) 06/04/2025 Sepsis (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) 11/02/2024 Prolonged QT interval 11/02/2024 Acute hypercapnic respiratory failure ([facility]) 11/01/2024 Acute on chronic systolic (congestive) heart failure ([facility]) 09/16/2024 Moderate malnutrition (CMS/HCC) ([facility]) 09/12/2024 Acute on chronic congestive heart failure, unspecified heart failure type ([facility]) 09/10/2024 Financial difficulties 08/20/2024 Pulmonary HTN ([facility]) 08/19/2024 DELORES on CPAP 04/15/2024 Heavy tobacco smoker 04/15/2024 Cigarette smoker 04/15/2024 Personal history of smoking 04/15/2024 Paroxysmal atrial fibrillation ([facility]) 03/03/2024 Cervical spondylosis 03/02/2024 Non-pressure chronic ulcer of other part of right foot with unspecified severity ([facility]) 02/17/2024 Diabetes due to undrl condition w oth diabetic neuro comp ([facility]) 02/17/2024 Alcohol abuse with withdrawal, uncomplicated ([facility]) 02/17/2024 Right arm numbness 02/13/2024 Persistent depressive disorder 02/13/2024 DELORES (obstructive sleep apnea) 02/13/2024 Poor compliance with medication 02/13/2024 On continuous oral anticoagulation 11/21/2023 Acute exacerbation of CHF (congestive heart failure) ([facility]) 11/12/2023 Medical non-compliance 11/12/2023 Anemia in other chronic diseases classified elsewhere 01/01/2023 Closed fracture of neck of left humerus with routine healing 12/31/2022 Hyponatremia 12/29/2022 COPD exacerbation (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) 07/17/2022 Permanent atrial fibrillation ([facility]) 08/25/2021 History of rib fracture 08/25/2021 Chronic hyponatremia 08/25/2021 Essential hypertension 08/25/2021 Alcohol consumption heavy 08/25/2021 COPD (chronic obstructive pulmonary disease) ([facility]) 08/25/2021 History of adenomatous polyp of colon 11/18/2019 Diverticulosis of large intestine without diverticulitis 10/27/2019 Compression fracture of thoracic vertebra with routine healing 10/07/2019 Osteoporosis 10/07/2019 Venous stasis dermatitis of left lower extremity 07/17/2017 Current moderate episode of major depressive disorder without prior episode ([facility]) 04/10/2017 Cor, pulmonale, acute ([facility]) 02/01/2016 Raynaud phenomenon 09/10/2015 Acute on chronic hypoxic respiratory failure 2/2 to rhinovirus Streptococcus pneumoniae pneumonia from previous admission 05/21/25 Respiratory PCR (+) rhinovirus, enterovirus, MRSA PCR (+) Bcx NG at 24 hours -- Daily CBC, CMP - Monitor mental status, vital signs - ID consult Known MRSA bacteremia Severe sepsis - resolved (+) Severe sepsis criteria on admission, Lactic acid nl sepsis resolved -Infectious disease following -continue vanc until 07/05 per previous regimen -continue vancomycin 05/21-07/05 -continue cefepime, started 06/04-current - Follow-up final blood culture results HFimpEF (EF 45%) S/P removal of ICD 05/25/25 in the setting of bacteremia TTE 06/04/25: EF 45%, mildly reduced LV and RV systolic function, mild-moderate TR - Continue home Farxiga 10 mg daily - Consider restarting Metoprolol succinate 75 mg BID tomorrow 06/06/25 - Hold home Losartan 25 mg daily - Hold home Spironolactone 25 mg daily - Hold home Torsemide 30 mg BID - Strict I/Os - Daily weight COPD Not on home O2 - Continue home Dulera 2 puffs BID and Spiriva 2 puffs daily - Duonebs q4h and PRN - Pulm consult: Methylprednisolone 40mg IV q6h - Wean supplemental O2 - Home O2 evaluation prior to discharge DELORES Pulmonary HTN - Continue home autoBiPAP Atrial fibrillation Hx of DVT and PE - Continue home Eliquis 5 mg BID - Consider restarting Metoprolol succinate 75 mg BID tomorrow 06/06/25 CAD - Hold home Rosuvastatin 40mg daily in the setting of transaminitis Transaminitis Abdomen US hepatomegaly, Liver doppler US patent blood vessels History of alcohol abuse, last drink > 1 week (-) Hepatitis workup from previous admission - Hold home Rosuvastatin 40mg daily - Monitor LFTs Chronic hyponatremia Na bl 128-130 - Monitor Na Normocytic anemia Hgb bl 11.5 - Monitor CBC - Iron studies, ferritin History of alcohol use - Continue thiamine 100 mg daily MDD - Hold home sertraline 100 mg daily in the setting of prolonged Qtc Prolonged QTc Qtc 566 - Avoid Qtc prolonging medications History of Raynaud phenomenon FEN/GI/DVT IVF: None Electrolytes: Monitor and replace per protocols Diet: General GI PPX: No DVT Prophylaxis: No prophylaxis/Already on anticoagulation: Eliquis Telemetry: Currently on Telemetry / Reason: Atrial fibrillation, HFrEF DISPOSITION: Pending blood culture, monitor mental status and vital signs I have personally seen the patient and performed a history and physical exam. I have discussed this patient with the resident and attending. I have reviewed the note and agree with the assessment and plan as documented, with my changes in blue. Mayda Shankar MD Family Medicine, PGY-3 06/06/25 11:20 AM [1] apixaban, 5 mg, Oral, BID cefepime, 2,000 mg, IntraVENous, q8h chlorhexidine, , Topical, Daily collagenase, , Topical, Daily dapagliflozin, 10 mg, Oral, Daily dextromethorphan-guaiFENesin, 1 tablet, Oral, BID folic acid, 1 mg, Oral, Daily [Held by provider] furosemide, 40 mg, IntraVENous, BID ipratropium-albuterol, 3 mL, Nebulization, q4h [Held by provider] losartan, 25 mg, Oral, Daily methylPREDNISolone sod suc (PF), 40 mg, IntraVENous, q6h [Held by provider] metoprolol succinate XL, 75 mg, Oral, BID mometasone-formoterol, 2 puff, Inhalation, BID montelukast, 10 mg, Oral, Daily nicotine, 1 patch, TransDERmal, Daily pantoprazole, 40 mg, Oral, Nightly Or pantoprazole (ProtoNix) 40 mg in sodium chloride (PF) 0.9 % 10 mL injection, 40 mg, IntraVENous, Nightly [Held by provider] rosuvastatin, 40 mg, Oral, Daily [Held by provider] sertraline, 100 mg, Oral, Daily sodium chloride 0.9%, 5-40 mL, IntraVENous, q12h sodium chloride, 4 mL, Nebulization, BID [Held by provider] spironolactone, 25 mg, Oral, Daily thiamine, 100 mg, Oral, Daily [Held by provider] torsemide, 30 mg, Oral, BID [START ON 06/06/2025] vancomycin, 1,000 mg, IntraVENous, q24h [2] [3] PRN medications: acetaminophen OR acetaminophen, alteplase (Cathflo Activase) 2 mg in sterile water 2 mL injection, dextrose, dextrose, glucagon (rDNA), glucose, ipratropium-albuterol, polyethylene glycol (PEG) 3350, promethazine OR promethazine OR promethazine, sodium chloride, sodium chloride 0.9% MTS Attending Note Patient: Krystina Markham Date of : 1955 Admitting Diagnosis: Shortness of breath [R06.02] Hypoxemia [R09.02] COPD exacerbation (HCC) [J44.1] Acute on chronic congestive heart failure, unspecified heart failure type (HCC) [I50.9] Admit Date: 06/03/2025 Hospital Day: 1 Case discussed with residents, documentation, diagnostic studies and consults reviewed, patient independently interviewed and examined. I have reviewed and agree with Dr. Leon's note except to the extent otherwise documented below. Patient seen with MTS team: Des Larsen and Anju History: Chief Complaint Patient presents with Shortness of Breath Pt brought in by EMS for SOB from [facility]. Pt currently recently diagnosed with pneumonia receiving IV vancomycin. HX of COPD and CHF. Overnight events: PICC line issues, wore BiPAP overnight Pmhx HfimpEF, COPD, afib, home o2 2L, DELORES, hyponatremia, MDD, ETOH/tob use, hx ICD Subjective: Patient feeling improvement this morning unaware of the events that led to transfer to hospital. Unaware of events of earlier yesterday. Tolerating p.o. well. Denies BM since admission unsure of when last one was. Denies chest pain, shortness of breath, cough. States does not use home O2. Objective: BP 120/75 Pulse 85 Temp 36.4 C (97.6 F) (Temporal) Resp 18 Ht 5' 8" (1.727 m) Wt 170 lb 9.6 oz (77.4 kg) SpO2 92% BMI 25.94 kg/m Temp (24hrs), Av.3 C (97.3 F), Min:35.8 C (96.5 F), Max:36.4 C (97.6 F) Intake/Output Summary (Last 24 hours) at 06/05/2025 2215 Last data filed at 06/05/2025 0656 Gross per 24 hour Intake 2460 ml Output 470 ml Net 1990 ml Supplemental O2: O2 Flow Rate (L/min): 4 L/min General appearance: Pt ill appearing, improved from yesterday. Currently receiving aerosol treatment. Sitting up in bed awake and alert. HEENT: no scleral icterus , dry mucous membranes Respiratory: Rhonchi and wheezing L>R ant, however improved air exchange compared to yesterday, use of accessory muscles. Able to speak in full sentences Cardiovascular: Irreg, distant sounds Abdomen: Soft, non-tender Musculoskeletal: No edema bilaterally. Several amputations of the left fingers Skin: bruising noted UE, abrasion on chest wall Neurologic: Awake and alert, moving all 4 extremities CBC: Recent Labs 06/04/25 0020 06/04/25 0024 06/04/25 0211 06/05/25 0303 WBC 10.7 -- -- 7.1 RBC 4.05* -- -- 3.78* HGB 12.1* 13.1* 13.0* 11.2* HCT 34.9* -- -- 33.4* MCV 86.2 -- -- 88.4 RDW 13.1 -- -- 13.2 PLT 294 -- -- 259 No components found for: "LABA1C" CARDIAC ENZYMES: No results for input(s): "TROPONINI" in the last 72 hours. Procalcitonin: Lab Results Component Value Date PROCAL 0.44 (H) 06/04/2025 BMP: Recent Labs 06/04/250 06/05/25 0303 NA 131* 132* K 4.5 4.6 CL 94* 97* CO2 24 23 BUN 24* 30* CREATININE 1.10 1.08 GLUCOSE 136* 180* CALCIUM 9.0 9.1 ANIONGAP 13 12 LIVER PROFILE: Recent Labs 06/04/25 0020 06/05/25 0303 AST 134* 53* ALT 170* 118* BILITOT 0.6 0.3 ALKPHOS 114 91 PROT 7.1 6.8 Blood cultures no growth x 24 hours Resp PCR +rhino/entero Mag 2.1 A1C 6 BNP 10,402 MRSA by PCR positive, MEC a positive Legionella/strep negative CT chest angiogram w and/or wo IV contrast Pulmonary Arteries: There are no filling defects within the pulmonary arterial system to suggest pulmonary embolus. There is prominence of the main pulmonary arteries, which can be seen in the setting of pulmonary arterial hypertension. Cardiovascular: The heart is enlarged. Atherosclerotic vascular calcifications are present in the aortic arch and coronary arteries. Lungs: Moderate to severe centrilobular and paraseptal emphysema is seen. There is also dependent and bibasilar scarring/atelectasis. Persistent, albeit improved consolidation near the posterior left lung base. Impression: 1. Negative for acute pulmonary embolus. 2. The RV/LV ratio is <1. This is considered normal*. 3. Persistent, albeit improved consolidation near the posterior left lung base. 4. Additional chronic findings as above. ECG 12 lead Atrial fibrillation Ventricular premature complex Left bundle branch block XR chest 1 view Other findings: None. Impression: 1. Right arm PICC is looped in the right axillary region (only partially imaged). 2. Cardiomegaly. ECG 12 lead Atrial fibrillation Left bundle branch block No significant change from prior. Artifact noted. Occasional PVC Electronically Signed On 06-04-2025 00:32:08 EDT by Reese Stafford Summary of singh issues: Acute on chronic respiratory failure with known MRSA bacteremia undergoing current treatment with vanc (last day scheduled 07/05/25). Now with entero/rhinovirus. Pt meeting sepsis criteria. Consult ICU Con't steroids 40 mg Q6, consider wean next 24 hours Con't antb/broaden spectrum Consult to ID-appreciate input Blood cultures pending Unable to produce sputum culture Continue duonebs Mild fluid resuscitation in setting of history of heart failure Home O2 prior to discharge HFrEF Holding lasix COPDe/emphysema-uses home o2 Auto bipap Steroids Home O2 prior to discharge Prolonged QTC Hold prolonging meds Consider cardio input Recheck EKG Persistant hyponatremia Consider nephro i consult Pulm HTN/DELORES/cardiomegaly CAD/afib/post ICD removal Con't holding BB, ARB, spironolactone, lasix due to soft blood pressures, will resume as this improves Con't anticoagulation Transaminitis-improving Holding statin at this time MDD Hold sertraline in setting of hyponatremia; may need to consider alternative Hx raynaud pneumonia Anemia/stable-monitor, will check iron studies Alcohol use-Will check vitamin B12, continue thiamine Dispo: Continue antibiotics pending blood cultures See resident's note for additional details. Pharmacy to Dose Vancomycin - Progress Note Recent Labs 06/04/25 0020 06/05/25 0303 BUN 24* 30* CREATININE 1.10 1.08 Lab Results Component Value Date DOLORES 21.8 06/05/2025 Doses, serum creatinine, and vancomycin levels interfaced automatically to [employer] and data has been analyzed and interpreted. Infectious Diagnosis: bloodstream infection Est CrCl: 70.7 mL/min (Cockcroft-Gault) Assessment: Current regimen vancomycin 1250 mg every 24 hours. Predicted AUC = 687 mg/L*hr (goal 400-600 mg/L*hr) Plan: Is the current dose therapeutic? [x] No - change current regimen to vancomycin 1000 mg every 24 hours for predicted AUC 560 mg/L*hr. Obtain next level on 06/06/25. Trend serum creatinine. Trend AUC using Bayesian Modeling. Orders placed. DATE: 06/05/25 TIME: 6:27 AM Tanja Benitez RPh Clinical Pharmacist Available via Secure Chat Images from the original note were not included. PHYSICAL THERAPY [facility] Initial Evaluation Name/MRN: Krystina Markham ([id number]) Evaluation Date: 06/04/2025 Date of : 1955 Admission Date: 06/03/2025 11:55 PM Age: 70 y.o. Room/Bed: B2-249/B2-249 A Discharge Recommendation: [facility] Facility Assessment IMPRESSION: Pt admitted 06/04 with SOB, COPD exacerbation from SNF where he is getting IV abx for PNA. PLOF is indep with no device for ADLs and functional mobility. Pt is now SBA for bed mobility, CGA for transfers, CGA for ambulation with RW and min A without device. Pt demos generalized weakness, instability, fatigue with standing activities. Pt would continue to benefit from skilled PT intervention to address limitations and improve return to PLOF. Rec SNF. Admitting Diagnosis: SOB, COPD exacerbation Prognosis: good Performance Deficits /Impairments: Decreased Functional Mobility, Decreased ADL status, Decreased Strength, Decreased Endurance, Decreased Balance, and Decreased High Level IADLs Decision Making: Medium Complexity Subjective Patient pleasant and agreeable to therapy session this date. Per RN, pt is ok to see. Pain: Pt denies any current pain. Past Medical History: Medical History[1] Past Surgical History: Surgical History[2] Admission Diagnosis: Patient Active Problem List Diagnosis Date Noted Shortness of breath 06/04/2025 Heart failure (HCC) 06/04/2025 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) 11/02/2024 Prolonged QT interval 11/02/2024 Acute hypercapnic respiratory failure ([facility]) 11/01/2024 Acute on chronic systolic (congestive) heart failure ([facility]) 09/16/2024 Moderate malnutrition (CMS/HCC) ([facility]) 09/12/2024 Acute on chronic congestive heart failure, unspecified heart failure type ([facility]) 09/10/2024 Financial difficulties 08/20/2024 Pulmonary HTN ([facility]) 08/19/2024 DELORES on CPAP 04/15/2024 Heavy tobacco smoker 04/15/2024 Cigarette smoker 04/15/2024 Personal history of smoking 04/15/2024 Paroxysmal atrial fibrillation ([facility]) 03/03/2024 Cervical spondylosis 03/02/2024 Non-pressure chronic ulcer of other part of right foot with unspecified severity (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) 02/17/2024 Alcohol abuse with withdrawal, uncomplicated ([facility]) 02/17/2024 Right arm numbness 02/13/2024 Persistent depressive disorder 02/13/2024 DELORES (obstructive sleep apnea) 02/13/2024 Poor compliance with medication 02/13/2024 On continuous oral anticoagulation 11/21/2023 Acute exacerbation of CHF (congestive heart failure) ([facility]) 11/12/2023 Medical non-compliance 11/12/2023 Anemia in other chronic diseases classified elsewhere 01/01/2023 Closed fracture of neck of left humerus with routine healing 12/31/2022 Hyponatremia 12/29/2022 COPD exacerbation (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) 07/17/2022 Permanent atrial fibrillation ([facility]) 08/25/2021 History of rib fracture 08/25/2021 Chronic hyponatremia 08/25/2021 Essential hypertension 08/25/2021 Alcohol consumption heavy 08/25/2021 COPD (chronic obstructive pulmonary disease) ([facility]) 08/25/2021 History of adenomatous polyp of colon 11/18/2019 Diverticulosis of large intestine without diverticulitis 10/27/2019 Compression fracture of thoracic vertebra with routine healing 10/07/2019 Osteoporosis 10/07/2019 Venous stasis dermatitis of left lower extremity 07/17/2017 Current moderate episode of major depressive disorder without prior episode ([facility]) 04/10/2017 Cor, pulmonale, acute ([facility]) 02/01/2016 Raynaud phenomenon 09/10/2015 Medical Precautions: Droplet Proper PPE donned/doffed in accordance with facility standards. Fall Risk: Landin Fall Risk Score: 100 (High Risk) Precautions/Restrictions: Lines/Drains/Airways: 4L O2 Fall Precautions Family/Caregiver Present: none Overall Cognitive Status: WFL Overall Orientation Status: Oriented x4 Vision: Not Assessed Hearing: normal Social/Functional History Lives With: alone Type of Home: single family home Home Layout: Single Level Home Home Access: Stairs to Enter with Rails (# of stairs: 3) Bathroom Shower/Tub: Shower Chair with Back, Walk in Shower, and Grab Bars Toilet: Standard, grab bars Home Equipment: shower seat Homemaking Responsibilities: Independent Laundry: Basement level Receives Help From: None Active Food Services Director: Yes Prior Level of Function Prior Level of ADL Function: Independent Prior Level of Mobility: Independent; Device: None Prior Level of Transfers: Independent Objective Lower Extremity Assessment AROM: WFL PROM: Not assessed this session Strength: WFL, generalized weakness Sensation: Not assessed this session Balance: Balance During Session: Posture: fair Sitting - Static: Modified Independent Sitting - Dynamic: Modified Independent Standing - Static: Contact Guard Standing - Dynamic: Min Assist Bed Mobility: Supine to sit: SBA Sit to supine: SBA HOB elevated, use of bed rails, with increased time and effort required, compensations from UEs to complete bed mobility but no hands on assist required at this time. VC for positioning. Denies dizziness. Transfers Sit to stand: Contact Guard Stand to sit: Contact Guard STSx2 during session from bed and toilet with CGA for safety, shakiness in BLE and VC for hand placement, use of hands to complete transfers. Mild instability upon initial stand but resolves. Denies dizziness. Ambulation Ambulation 1 Assistive device(s) used: Front wheeled walker Assist level: Contact Guard Distance (ft): 15' Quality of gait: reciprocal stepping, shuffling, slow luiza, decreased foot clearance, forward flexed posture. Ambulation 2 Assistive device(s) used: None Assist level: Min Assist Distance (ft): 15' Quality of gait: Same as above, but with increased unsteadiness, pt with short step length, reaching for rizzo and objects without device. Min A for stability. PT managing O2 and IV during ambulation both bouts. Outcome Measures AM-PAC How much HELP from another person do you currently need Turning from your back to your side while in a flat bed without using bedrails?: None Moving from lying on your back to sitting on the side of a flat bed without using bedrails?: A Little Moving to and from a bed to a chair (including a wheelchair)?: A Little Standing up from a chair using your arms (wheelchair or bedside chair)?: A Little Walking in a hospital room?: A Little Stair climbing assessed?: No AM-PAC Inpatient Mobility Raw Score (No Stairs) : 16 JH-HLM JH-HLM Scale: Walked 10 steps or more (i.e. walked to restroom) Plan Pt would benefit from skilled acute PT services to address Strengthening, ROM, Gait Training, Balance Training, Self-Care/ADL Training, Functional Mobility Training, Endurance Training, Safety Education and Training, Stair Training, Equipment Evaluation/Education, and Neuromuscular Re-Education Training. Frequency: 5 visitsduring current hospital admission or until additional recommendations are made Barriers: Impaired balance, Lower extremity weakness, and Decreased endurance Safety/Education Safety Safety Devices in place: All fall risk precautions in place, call light within reach, left in bed, bed alarm in place, gait belt, patient at risk for falls, and nurse notified Restraints: No Education Education Given To: patient Education Provided: PT Role, PT Goals, Gait Training, Plan of Care, Transfer Training, Fall Prevention Education, Discharge Recommendations, Benefits of Increasing Activity, and Breathing Techniques Education Method: Verbal and Demonstration Barriers to Learning: None Education Outcome: Verbalized Understanding and Demonstrated Understanding Goals Patient Stated Goal: To get stronger Encounter Problems Encounter Problems (Active) Balance Patient will maintain dynamic standing balance for 3 minutes with modified independence in order to demonstrate decreased risk of falling. Start: 06/04/25 Expected End: 06/11/25 Exercise Patient will complete lower extremity exercises for 1-2 sets / 5-10 reps in order to improve strength and activity tolerance for mobility. Start: 06/04/25 Expected End: 06/11/25 Mobility Patient will ambulate 150 feet with modified independence and least restrictive device in order to improve safety and independence with mobility. Start: 06/04/25 Expected End: 06/11/25 Transfers Patient will perform bed mobility with modified independence in order to improve independence and prepare for out of bed mobility. Start: 06/04/25 Expected End: 06/11/25 Patient will complete sit to stand transfer with modified independence to LRD in order to improve safety and prepare for out of bed mobility. Start: 06/04/25 Expected End: 06/11/25 Therapy Time Individual Co-Treatment Co-Evaluation Time In 1525 Time Out 1543 Minutes Aaron Max PT Patient's Physical Therapy Plan of Care supervision is transferred to a [facility] Physical Therapist. Goals and/or treatment plan was established in collaboration with patient/family/other representatives. [1] Past Medical History: Diagnosis Date Alcohol consumption heavy 09/10/2015 stopped 3w ago Asthma (HHS/HCC) Atrial fibrillation (HCC) CHF (congestive heart failure) ([facility]) 01/31/2016 COPD (chronic obstructive pulmonary disease) ([facility]) 09/10/2015 Cor, pulmonale, acute (HCC) Deep venous thrombosis (HCC) 02/2016 Depression Hx of blood clots Obesity 09/10/2015 DELORES (obstructive sleep apnea) Pulmonary embolus (HCC) 6 16 Raynaud phenomenon 09/10/2015 Smoker 09/10/2015 [2] Past Surgical History: Procedure Laterality Date ABDOMINAL SURGERY BRONCHOSCOPY 02/25/2020 BRONCHOSCOPY (HISTORICAL) 02/25/2020 CARDIAC ELECTROPHYSIOLOGY PROCEDURE N/A 05/25/2025 Performed by Karthik Mendoza MD at [facility] Cardiac Cath/EP Lab COLONOSCOPY 10/27/[address] CHEST ANGIOGRAM W AND/OR WO IV CONTRAST 07/12/2022 CT CHEST ANGIOGRAM W AND/OR WO IV CONTRAST 07/12/[address] IMAGING FINGER AMPUTATION Left HERNIA REPAIR NOSE SURGERY PACEMAKER (HISTORICAL) Images from the original note were not included. OCCUPATIONAL THERAPY [facility] Initial Evaluation Name/MRN: Krystina Markham ([id number]) Evaluation Date: 06/04/2025 Date of : 1955 Admission Date: 06/03/2025 11:55 PM Age: 70 y.o. Room/Bed: B2-249/B2-249 A Discharge Recommendation: [facility] Facility Assessment IMPRESSION: Pt is 70 y.o. male admitted on 06/04/25 for SOB. Prior to admission, pt living with alone and completing ADLs and functional mobility indep with no device. Upon eval, pt requires Min-Mod A for bed mobility, CGA for transfers, CGA-Min A for functional mobility with no device, and CGA for ADLs. Pt is limited by pain, endurance, strength and will benefit from skilled acute OT services to increase indep and safety during ADLs and functional mobility. Recommend SNF at D/C. Admitting Diagnosis: SOB Performance Deficits /Impairments: Increased Pain, Decreased Functional Mobility, Decreased ADL status, Decreased Strength, Decreased Safety Awareness, Decreased Endurance, Decreased Balance, and Decreased High Level IADLs Prognosis: Fair Decision Making: Medium Complexity Subjective Pt pleasant and cooperative, agreeable to OT evaluation. Pain: Pt denies any current pain. Past Medical History: Medical History[1] Past Surgical History: Surgical History[2] Admission Diagnosis: Patient Active Problem List Diagnosis Date Noted Shortness of breath 06/04/2025 Heart failure (HCC) 06/04/2025 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) 11/02/2024 Prolonged QT interval 11/02/2024 Acute hypercapnic respiratory failure ([facility]) 11/01/2024 Acute on chronic systolic (congestive) heart failure ([facility]) 09/16/2024 Moderate malnutrition (CMS/HCC) ([facility]) 09/12/2024 Acute on chronic congestive heart failure, unspecified heart failure type ([facility]) 09/10/2024 Financial difficulties 08/20/2024 Pulmonary HTN ([facility]) 08/19/2024 DELORES on CPAP 04/15/2024 Heavy tobacco smoker 04/15/2024 Cigarette smoker 04/15/2024 Personal history of smoking 04/15/2024 Paroxysmal atrial fibrillation ([facility]) 03/03/2024 Cervical spondylosis 03/02/2024 Non-pressure chronic ulcer of other part of right foot with unspecified severity (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) 02/17/2024 Alcohol abuse with withdrawal, uncomplicated ([facility]) 02/17/2024 Right arm numbness 02/13/2024 Persistent depressive disorder 02/13/2024 DELORES (obstructive sleep apnea) 02/13/2024 Poor compliance with medication 02/13/2024 On continuous oral anticoagulation 11/21/2023 Acute exacerbation of CHF (congestive heart failure) (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) 07/17/2022 Permanent atrial fibrillation ([facility]) 08/25/2021 History of rib fracture 08/25/2021 Chronic hyponatremia 08/25/2021 Essential hypertension 08/25/2021 Alcohol consumption heavy 08/25/2021 COPD (chronic obstructive pulmonary disease) ([facility]) 08/25/2021 History of adenomatous polyp of colon 11/18/2019 Diverticulosis of large intestine without diverticulitis 10/27/2019 Compression fracture of thoracic vertebra with routine healing 10/07/2019 Osteoporosis 10/07/2019 Venous stasis dermatitis of left lower extremity 07/17/2017 Current moderate episode of major depressive disorder without prior episode ([facility]) 04/10/2017 Cor, pulmonale, acute ([facility]) 02/01/2016 Raynaud phenomenon 09/10/2015 Medical Precautions: Droplet Proper PPE donned/doffed in accordance with facility standards. Fall Risk: Landin Fall Risk Score: 100 (High Risk) Precautions/Restrictions: Lines/Drains/Airways: 4L O2 Fall Precautions Family/Caregiver Present: none Overall Cognitive Status: WFL Overall Orientation Status: Oriented x4 Social/Functional History Lives With: alone Type of Home: single family home Home Layout: Single Level Home Home Access: Stairs to Enter with Rails (# of stairs: 3) Bathroom Shower/Tub: Shower Chair with Back, Walk in Shower, and Grab Bars Toilet: Standard, grab bars Home Equipment: shower seat Homemaking Responsibilities: Independent Laundry: Basement level Receives Help From: None Active Food Services Director: Yes Prior Level of Function Prior Level of ADL Function: Independent Prior Level of Mobility: Independent; Device: None Prior Level of Transfers: Independent Objective ADLs Toileting: Contact Guard Pt requiring CGA for toileting for clothing management in standing this date, no physical assist required for Oriana care or clothing management this date. Pt requiring additional time to complete. Upper Extremity Assessment AROM: RUE WFL and Impaired: LUE elbow, hand flexion/ext Strength: Exceptions: generalized weakness in BUE Bed Mobility Supine to sit: Min Assist Sit to supine: Mod Assist Pt requiring Min A for achieving upright torso to sit at EOB from supine. Pt requiring Mod A for BLE management for return to supine. Transfers/Mobility Sit to stand: Contact Guard Stand to sit: Contact Guard Toilet: Contact Guard Functional mobility: Contact Guard, Min Assist Pt requiring CGA for functional transfers from EOB and toilet without use of device or grab bars this date. Pt requiring CGA with intermittent Min A for correction of minor LOB/unsteadiness at this time without device. Device(s) used: None AM-PAC AM-PAC Inpatient Daily Activity Raw Score: 19 ADL Inpatient CMS G-Code Modifier: CK Plan Pt would benefit from skilled acute OT services to address Strengthening, Balance Training, Self-Care/ADL Training, Functional Mobility Training, Endurance Training, Safety Education and Training, Pain Management, Equipment Evaluation/Education, Home Management Training, and Patient/Caregiver Training Frequency: 3 visits during current hospital admission or until additional recommendations are made Barriers: Pain, Impaired balance, Lower extremity weakness, Decreased endurance, and Limited safety awareness Safety/Education Safety Safety Devices in place: All fall risk precautions in place, call light within reach, left in bed, bed alarm in place, gait belt, and patient at risk for falls Restraints: No Education Education Given To: patient Education Provided: OT Role, Plan of Care, ADL Adaptive Strategies, Transfer Training, IADL Safety, Fall Prevention Education, Discharge Recommendations, and Benefits of Increasing Activity Education Method: Verbal, Demonstration, and Teach Back Barriers to Learning: None Education Outcome: Verbalized Understanding, Demonstrated Understanding, and Continued Education Needed Goals Patient Stated Goal: to go home Encounter Problems Encounter Problems (Active) Balance Patient will maintain dynamic standing balance for 8 minutes with modified independence in order to demonstrate decreased risk of falling. (Progressing) Start: 06/04/25 Expected End: 06/11/25 Dressing Upper Extremities Patient will complete upper body dressing Mod I (Not Addressed) Start: 06/04/25 Expected End: 06/11/25 Dressings Lower Extremities Patient will dress lower body Mod I (Not Addressed) Start: 06/04/25 Expected End: 06/11/25 Mobility Patient will demonstrate functional mobility with LRD and Mod I (Progressing) Start: 06/04/25 Expected End: 06/11/25 Toileting Patient will complete toileting tasks at standard toilet with modified independence. (Progressing) Start: 06/04/25 Expected End: 06/11/25 Transfers Patient will complete functional transfer with least restrictive device with modified independence in order to prepare for functional mobility. (Progressing) Start: 06/04/25 Expected End: 06/11/25 Therapy Time Individual Co-Treatment Co-Evaluation Time In 1126 Time Out 1155 Minutes 29 Timed Code Treatment Minutes: 8 Minutes (ADL) Variance: 3 (BM) Dominga Walls OT Patient's Occupational Therapy Plan of Care supervision is transferred to a [facility] Occupational Therapist. Goals and/or treatment plan was established in collaboration with patient/family/other representatives. [1] Past Medical History: Diagnosis Date Alcohol consumption heavy 09/10/2015 stopped 3w ago Asthma (HHS/HCC) Atrial fibrillation (HCC) CHF (congestive heart failure) (HCC) 01/31/2016 COPD (chronic obstructive pulmonary disease) (HCC) 09/10/2015 Cor, pulmonale, acute (HCC) Deep venous thrombosis (HCC) 02/2016 Depression Hx of blood clots Obesity 09/10/2015 DELORES (obstructive sleep apnea) Pulmonary embolus ([facility]) 6 16 Raynaud phenomenon 09/10/2015 Smoker 09/10/2015 [2] Past Surgical History: Procedure Laterality Date ABDOMINAL SURGERY BRONCHOSCOPY 02/25/2020 BRONCHOSCOPY (HISTORICAL) 02/25/2020 CARDIAC ELECTROPHYSIOLOGY PROCEDURE N/A 05/25/2025 Performed by Karthik Mendoza MD at [facility] Cardiac Cath/EP Lab COLONOSCOPY 10/27/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 Currently ordered Adult diet Regular; Low Fat (less than or equal to 50 gm/day); No Carbonated Beverages Suggest continue chocolate Ensure Plus bid( 350 castro, 20 gm pro/serving) Please document PO intakes-diet and ONS- consistently in the flowsheet to better assess intake adequacy. Monitor labs, status, intakes,wts to reassess. 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 Pt currently recently diagnosed with pneumonia receiving IV vancomycin. HX of COPD and CHF. History of Presenting Illness: 70-year-old male with a significant PMHx of COPD and HFimpEF, MRSA bacteremia PNA, Raynaud's Phenomenon, DELORES, med non-compliance, chronic hyponatremia, transaminitis, LBBB, alcoholism (last drink more than 1 week ago) and PE. He was brought by ambulance from his halfway facility (SNF) for evaluation of acute-onset shortness of breath. The patient's presentation is in the setting of a recent hospitalization for MRSA bacteremia and sepsis secondary to pneumonia. He was discharged to the SNF on 06/02 to complete a course of IV vancomycin via a right upper arm PICC line, with his most recent dose administered at 14:58 today. This afternoon, nursing staff at the facility found the patient in significant distress, utilizing accessory muscles to breathe with a respiratory rate of 32 and a heart rate of 116. He was noted to have central and peripheral cyanosis, and his oxygen saturation was critically low at 69% on room air. His saturation improved to the mid-90s on 5L nasal cannula, and he was sent to the ED for further evaluation. The patient confirms feeling very short of breath and reports a persistent cough and a headache, but is unable to identify any relieving or worsening factors.ASSESSMENT/PLAN: SOB 2/2 COPDe vs. HFimpEFe Admit to tele Meds: -COPDe + Tx for MRSA bacteremia. + rhinovirus Pmhx HfimpEF, COPD, afib, home o2 2L, DELORES, hyponatremia, MDD, ETOH/tob use, hx ICD- acute resp failure,transaminititis.. icd out- ef 50% Estimated Daily Nutrient Needs: Energy Requirements Based On: Kcal/kg Weight Used for Energy Requirements: [place] Weight for Energy Calculation (kg): 70 kg Total Energy Requirements (kcals/day): 25-30 or 1023-0556 Weight Used for Protein Requirements: Weight in Kg Used for Protein Requirements: 70 kg Estimated Total Protein (g/day): 1-1.2 or 70-84 Estimated Daily Total Fluid (ml/day): 1.8- 2 litrers or per md Nutrition Related Findings: 06/01 bm, a fib,+1ble,bradedn 15,got albumin, ppi,solumedrol, na 131, glu 136,m alb 2.9, ast 134, alt 170,hbaic 6, gfr 72.7 , ntprobnp 10,402- 06/01 bm Wound Type: Multiple, Stage II, Stage I, Surgical Incision (coccyx,st) Current Nutrition Therapies: Adult diet Regular; Low Fat (less than or equal to 50 gm/day); No Carbonated Beverages Current Oral Intake Average Meal Intake: 51-75%, 76-100% Average Supplements Intake: 76-100% Anthropometric Measures: Height: 172.7 cm (5' 8") Current Body Weight: 77.1 kg (170 lb) (06/02/25) Weight Source: Standing Scale Usual Body Weight: 80.3 kg (177 lb) (05/31) % Weight Change (Calculated): -4 [place] Body Weight (lbs) (Calculated): 154 lbs [place] Body Weight (Kg) (Calculated): 70 kg % [place] Body Weight (Calculated): 110.4 % BMI (kg/m2) (Calculated): 25.9 BMI Categories: Overweight (BMI 25.0-29.9) Nutrition Diagnosis: Increased nutrient needs related to impaired respiratory function as evidenced by other (comment) (+ rhinovirus) Altered nutrition-related lab values related to other (comment), cardiac dysfunction (liver, ntprobnp) as evidenced by lab values Nutrition Interventions: Nutrition Education/Counseling: No recommendation at this time Coordination of Nutrition Care: Continue to monitor while inpatient Plan of Care discussed with: patient Goals: Goals: Meet at least 75% of estimated needs, other (specify) Specify Other Goals: labs will trend toward baseline Nutrition Monitoring and Evaluation: Behavioral-Environmental Outcomes: None Identified Food/Nutrient Intake Outcomes: Food and Nutrient Intake, Supplement Intake Physical Signs/Symptoms Outcomes: Biochemical Data, GI Status, Nausea or Vomiting, Fluid Status or Edema, Hemodynamic Status, Meal Time Behavior, Nutrition Focused Physical Findings, Skin, Weight Discharge Planning: Continue current diet, Continue Oral Nutrition Supplement Patricia Chi RD Contact: *[phone] or secure chat Images from the original note were not included. Medical Teaching Service Progress Note Patient: Krystina Markham : 1955 Acct: [id number] PCP: Toi Davis MD Admitting Physician: Ashley Yang DO Admission Date: 06/03/2025 Admitting Diagnosis: Shortness of breath [R06.02] Hypoxemia [R09.02] COPD exacerbation (HCC) [J44.1] Acute on chronic congestive heart failure, unspecified heart failure type (HCC) [I50.9] Unit/Bed: [facility]249/[facility] A Hospital Day: 0 Code Status: Full Code Subjective: Overnight events: No significant overnight events. Patient is a 70 y.o. male with PmHx of COPD, HFimpEF, Afib s/p ICD extraction /, MRSA bacteremia PNA, medication noncompliance, chronic hyponatremia, transaminates, LBBB, alcoholism (last drink over a week ago), PE, DELORES, Raynaud's phenomenon. He presented via ambulance from SNF for acute-onset SOB. Of note, patient was recently hospitalized at [facility] (05/20-06/02) for septic shock 2/2 MRSA bacteremia and LLL PNA 2/2 strep pneumo requiring intubation and ICU level care. He was discharged to SNF with PICC line for vancomycin to end 07/05. On examination this morning, patient was lethargic but opened eyes to stimulation. Currently on 5L BiPAP, on 2L supplemental O2 at baseline. Patient was oriented to person but believes it to be mid May and that he is at [facility]. Was able to shake head to yes/no questions, indicating that breathing feels the same as when he arrived. Objective: Vitals: 06/04/25 0621 06/04/25 0703 06/04/25 0822 06/04/25 0913 BP: (!) 86/55 96/57 102/66 BP Location: Left arm Right arm Patient Position: Lying Lying Pulse: 86 80 72 71 Resp: 22 22 20 18 Temp: 37.1 C (98.8 F) 36.2 C (97.2 F) 36.4 C (97.6 F) TempSrc: Tympanic Temporal Temporal SpO2: 95% 92% 94% Weight: 169 lb 12.1 oz (77 kg) Height: 5' 8" (1.727 m) Temp (24hrs), Av.8 C (98.2 F), Min:36.2 C (97.2 F), Max:37.2 C (98.9 F) Intake/Output Summary (Last 24 hours) at 06/04/2025 1210 Last data filed at 06/04/2025 0621 Gross per 24 hour Intake 88.33 ml Output -- Net 88.33 ml Physical Exam Vitals reviewed. Constitutional: General: He is not in acute distress. Appearance: He is ill-appearing. He is not toxic-appearing. HENT: Head: Normocephalic and atraumatic. Nose: Nose normal. Eyes: Pupils: Pupils are equal, round, and reactive to light. Cardiovascular: Rate and Rhythm: Normal rate. Rhythm irregular. Heart sounds: No murmur heard. No friction rub. Pulmonary: Breath sounds: No stridor. Wheezing and rhonchi present. No rales. Comments: On 5L BiPAP Abdominal: General: Abdomen is flat. Bowel sounds are normal. There is no distension. Tenderness: There is no abdominal tenderness. There is no guarding. Skin: General: Skin is warm and dry. Capillary Refill: Capillary refill takes less than 2 seconds. Neurological: Mental Status: He is alert. Comments: Oriented to person only [place]: No Drains: No Central Line/Port: No Intubated: No Diet: Adult diet Regular; Low Fat (less than or equal to 50 gm/day); No Carbonated Beverages Medications: Scheduled Meds[1] Continuous Infusions: Continuous Meds[2] PRN Meds: PRN Meds[3] Labs: CBC: Results from last 7 days Lab Units 06/04/25 0211 06/04/25 0024 06/04/25 0020 06/02/25 0014 06/01/25 0018 05/31/25 0514 WBC AUTO 10*3/uL -- -- 10.7 9.1 8.6 8.2 HEMOGLOBIN g/dL -- -- 12.1* 10.9* 10.7* 11.1* HEMOGLOBIN BG g/dl 13.0* 13.1* -- -- -- -- HEMATOCRIT % -- -- 34.9* 31.7* 31.5* 32.9* PLATELETS 10*3/uL -- -- 294 362 338 316 NEUTROS PCT AUTO % -- -- -- 74.4 73.8 75.7 LYMPHO PCT MAN % -- -- 4* -- -- -- LYMPHS PCT AUTO % -- -- -- 9.8* 9.6* 7.7* MONO PCT MAN % -- -- 2* -- -- -- MONOS PCT AUTO % -- -- -- 12.0 12.9 13.2* EOS PCT AUTO % -- -- -- 1.7 1.4 1.2 BMP: Results from last 7 days Lab Units 06/04/25 0020 06/02/25 0014 06/01/25 1647 SODIUM mmol/L 131* 131* 130* POTASSIUM mmol/L 4.5 4.2 3.9 CHLORIDE mmol/L 94* 94* 92* CO2 mmol/L 24 28 30 BUN mg/dL 24* 24* 25* CREATININE mg/dL 1.10 0.91 0.85 GLUCOSE mg/dL 136* 98 119* CALCIUM mg/dL 9.0 8.6* 8.6* LIVER PROFILE: Results from last 7 days Lab Units 06/04/25 0020 06/02/25 0014 06/01/25 0018 ALK PHOS U/L 114 114 103 BILIRUBIN TOTAL mg/dL 0.6 0.6 0.5 PROTEIN TOTAL g/dL 7.1 6.3* 5.8* ALT U/L 170* 187* 147* AST U/L 134* 247* 184* PT/INR: Results from last 7 days Lab Units 06/04/25 1059 APTT s 35.2* INR 1.1 CARDIAC ENZYMES: Procalcitonin: Lab Results Component Value Date PROCAL 0.44 (H) 06/04/2025 Glucose: Results from last 7 days Lab Units 06/04/25 1126 06/04/25 0820 POCT GLUCOSE mg/dL 298* 169* ASSESSMENT/PLAN: Patient Active Problem List Diagnosis Date Noted Shortness of breath 06/04/2025 Heart failure (HCC) 06/04/2025 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) 11/02/2024 Prolonged QT interval 11/02/2024 Acute hypercapnic respiratory failure ([facility]) 11/01/2024 Acute on chronic systolic (congestive) heart failure ([facility]) 09/16/2024 Moderate malnutrition (CMS/HCC) ([facility]) 09/12/2024 Acute on chronic congestive heart failure, unspecified heart failure type ([facility]) 09/10/2024 Financial difficulties 08/20/2024 Pulmonary HTN ([facility]) 08/19/2024 DELORES on CPAP 04/15/2024 Heavy tobacco smoker 04/15/2024 Cigarette smoker 04/15/2024 Personal history of smoking 04/15/2024 Paroxysmal atrial fibrillation ([facility]) 03/03/2024 Cervical spondylosis 03/02/2024 Non-pressure chronic ulcer of other part of right foot with unspecified severity (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) 02/17/2024 Alcohol abuse with withdrawal, uncomplicated ([facility]) 02/17/2024 Right arm numbness 02/13/2024 Persistent depressive disorder 02/13/2024 DELORES (obstructive sleep apnea) 02/13/2024 Poor compliance with medication 02/13/2024 On continuous oral anticoagulation 11/21/2023 Acute exacerbation of CHF (congestive heart failure) (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) 07/17/2022 Permanent atrial fibrillation ([facility]) 08/25/2021 History of rib fracture 08/25/2021 Chronic hyponatremia 08/25/2021 Essential hypertension 08/25/2021 Alcohol consumption heavy 08/25/2021 COPD (chronic obstructive pulmonary disease) ([facility]) 08/25/2021 History of adenomatous polyp of colon 11/18/2019 Diverticulosis of large intestine without diverticulitis 10/27/2019 Compression fracture of thoracic vertebra with routine healing 10/07/2019 Osteoporosis 10/07/2019 Venous stasis dermatitis of left lower extremity 07/17/2017 Current moderate episode of major depressive disorder without prior episode ([facility]) 04/10/2017 Cor, pulmonale, acute ([facility]) 02/01/2016 Raynaud phenomenon 09/10/2015 1. Acute on Chronic Hypoxic Respiratory Failure COPDe 2/2 Rhinovirus - Infectious workup as below - Continue home inhalers: Dulera and Spiriva )substituted for Trellegy, Ellipta) - Methylprednisolone 40 mg IV q6h - Duonebs Gayb q4h - Mucinex PRN - Chest physiotherapy (OPEP) - Supplemental O2 PRN: goal 88-92% - Pulmonology consulted, appreciate recs - ICU consulted, appreciate recs HFimpEF exacerbation - Holding home metoprolol, losartan, spironolactone, lasix in setting of hypotension - Farxiga 10 mg daily - Hold aggressive fluid resuscitation in setting of CHF - I/Os, daily weights - Daily CBC, CMP - fall precautions - PT/OT as able 2. Severe Sepsis Recent hospitalization for MRSA bacteremia on vancomycin via PICC, LLL PNA 2/2 Strep pneumo - Met severe sepsis criteria for tachycardia, tachypnea with suspected infection, lactic acid 0.7 06/04 - Continue vancomycin from previous admission, start cefepime for gram negative coverage given recent intubation - Resp PCR Rhinovirus/ enterovirus + - COVID/flu/RSV negative - Resp Cx - PNA PCR - Blood Culture in progress - ID consulted, appreciate recs - Daily CBC/CMP 3. Transaminitis Abdominal US (06/01) WNL, negative hepatitis workup - Holding home rosuvastatin - INR WNL - Chronic, stable - Continue to monitor QtC Prolongation Qtc 596 - Avoid QT prolonging medications Chronic Euvolemic Hyponatremia Baseline Na ~130 Potentially 2/2 SSRI use - low fat diet, no Na restriction Anemia, mild - Monitor on CBC Atrial Fibrillation ICD Removed 05/28 due to improving EF, MRSA bacteremia - Continue home Apixaban 5 mg BID - Home metoprolol held in setting of hypotension Pulmonary HTN DELORES - AutoBipap therapy CAD - Holding home rosuvastatin 40 mg 2/2 transaminitis - Continue home Eliquis 5 mg BID FEN/GI/DVT IVF: None Electrolytes: Monitor and replace per protocols Diet: General GI PPX: Yes :Sepsis DVT Prophylaxis: No prophylaxis/Already on anticoagulation: Eliquis 5 mg BID Telemetry: Currently on Telemetry / Reason: Sever Sepsis, Hx Afib DISPOSITION: Pending blood cx, ID recs [1] apixaban, 5 mg, Oral, BID cefepime, 2,000 mg, IntraVENous, q8h chlorhexidine, , Topical, Daily collagenase, , Topical, Daily dapagliflozin, 10 mg, Oral, Daily dextromethorphan-guaiFENesin, 1 tablet, Oral, BID folic acid, 1 mg, Oral, Daily [Held by provider] furosemide, 40 mg, IntraVENous, BID ipratropium-albuterol, 3 mL, Nebulization, q4h [Held by provider] losartan, 25 mg, Oral, Daily methylPREDNISolone sod suc (PF), 40 mg, IntraVENous, q6h [Held by provider] metoprolol succinate XL, 75 mg, Oral, BID mometasone-formoterol, 2 puff, Inhalation, BID montelukast, 10 mg, Oral, Daily nicotine, 1 patch, TransDERmal, Daily pantoprazole, 40 mg, Oral, Nightly Or pantoprazole (ProtoNix) 40 mg in sodium chloride (PF) 0.9 % 10 mL injection, 40 mg, IntraVENous, Nightly [Held by provider] rosuvastatin, 40 mg, Oral, Daily [Held by provider] sertraline, 100 mg, Oral, Daily sodium chloride 0.9%, 5-40 mL, IntraVENous, q12h sodium chloride, 4 mL, Nebulization, BID spironolactone, 25 mg, Oral, Daily thiamine, 100 mg, Oral, Daily [Held by provider] torsemide, 30 mg, Oral, BID vancomycin, 1,250 mg, IntraVENous, q24h [2] [3] PRN medications: acetaminophen OR acetaminophen, dextrose, dextrose, glucagon (rDNA), glucose, ipratropium-albuterol, polyethylene glycol (PEG) 3350, promethazine OR promethazine OR promethazine, sodium chloride, sodium chloride 0.9% Cosigned by Ashley Yang DO at 06/04/2025 1:56 PM EDT MTS Attending Note Patient: Krystina Markham Date of : 1955 Admitting Diagnosis: Shortness of breath [R06.02] Hypoxemia [R09.02] COPD exacerbation (HCC) [J44.1] Acute on chronic congestive heart failure, unspecified heart failure type (HCC) [I50.9] Admit Date: 06/03/2025 Hospital Day: 0 Case discussed with residents, documentation, diagnostic studies and consults reviewed, patient independently interviewed and examined. I have reviewed and agree with Dr. Leon's note except to the extent otherwise documented below. History: Chief Complaint Patient presents with Shortness of Breath Pt brought in by EMS for SOB from [facility]. Pt currently recently diagnosed with pneumonia receiving IV vancomycin. HX of COPD and CHF. Overnight events: admitted Pmhx HfimpEF, COPD, afib, home o2 2L, DELORES, hyponatremia, MDD, ETOH/tob use, hx ICD Subjective: Patient w/ recent admission at [facility] for MRSA bacteremia and septic shock due to LL pneumonia that required intubation. He was seen by cardio, nephro and ID during that admission. Discharged to SNF for IV antb (vancomycin via PIC line) on 06/02. Returned to ER on 06/03 for increased SOB, hypotension and cyanosis at [facility]. Echo 05/26/25: showed L vent mod dilated, severely reduced vent function, severe global hypokinesis, R vent severely diatated, severely reduced systolic function, 2+ tricuspid regurg, RVSP 44 mmHg. R atrium severely dilated Had ICD are moved during last hosp and not replaced due to EF improvement 50% Review of Systems Unable to fully do ROS as pt is sleepy. Denied cough Objective: BP 102/66 (BP Location: Right arm, Patient Position: Lying) Pulse 72 Temp 36.4 C (97.6 F) (Temporal) Resp 20 Ht 5' 8" (1.727 m) Wt 169 lb 12.1 oz (77 kg) SpO2 92% BMI 25.81 kg/m Temp (24hrs), Av.8 C (98.2 F), Min:36.2 C (97.2 F), Max:37.2 C (98.9 F) Intake/Output Summary (Last 24 hours) at 06/04/2025 0832 Last data filed at 06/04/2025 0621 Gross per 24 hour Intake 88.33 ml Output -- Net 88.33 ml Supplemental O2: O2 Flow Rate (L/min): 4 L/min General appearance: Pt ill appearing, sleepy, face mask on, using access nawaf muscle resp HEENT: no scleral icterus , dry mucous membranes Respiratory: Rhonchi and wheezing L>R ant, use of accessory muscles Cardiovascular: Irreg, distant sounds Abdomen: Soft, non-tender Musculoskeletal: No edema bilaterally. Mild acrocysnaosis Skin: bruising noted UE, abrasion on chest wall Neurologic: drowsy CBC: Recent Labs 06/02/25 0014 06/04/25 0020 06/04/25 0024 06/04/25 0211 WBC 9.1 10.7 -- -- RBC 3.64* 4.05* -- -- HGB 10.9* 12.1* 13.1* 13.0* HCT 31.7* 34.9* -- -- MCV 87.1 86.2 -- -- RDW 13.1 13.1 -- -- PLT 362 294 -- -- No components found for: "LABA1C" CARDIAC ENZYMES: No results for input(s): "TROPONINI" in the last 72 hours. Procalcitonin: Lab Results Component Value Date PROCAL 0.44 (H) 06/04/2025 BMP: Recent Labs 06/01/25 1647 06/02/25 0014 06/04/25 0020 NA 130* 131* 131* K 3.9 4.2 4.5 CL 92* 94* 94* CO2 30 28 24 BUN 25* 24* 24* CREATININE 0.85 0.91 1.10 GLUCOSE 119* 98 136* CALCIUM 8.6* 8.6* 9.0 ANIONGAP 8 9 13 LIVER PROFILE: Recent Labs 06/02/25 0014 06/04/25 0020 AST 247* 134* ALT 187* 170* BILITOT 0.6 0.6 ALKPHOS 114 114 PROT 6.3* 7.1 Blood cultures Resp PCR +rhino/entero Mag 1.6 A1C 6 BNP 10,402 POCT glucose meter Performed by: Natalie Tenorio, [address] [place] [id number] CLIA ID: [id number] CT chest angiogram w and/or wo IV contrast Narrative: [facility] Name[facility] KRYSTINA MARKHAM [facility] 1955 [id number] Exam Date/Time: 06/04/2025 02:20 Procedure: CT CHEST ANGIOGRAM W AND/OR WO IV CONTRAST Ordering Provider: STAFFORD TARAS Reason For Exam: Pulmonary embolism (PE) suspected, positive D-dimer EXAMINATION: CTA of the chest with intravenous contrast, pulmonary embolism protocol. EXAM DATE & TIME: 06/04/2025 2:20 AM EDT INDICATION: Pulmonary embolism (PE) suspected, positive D-dimer ADDITIONAL INFORMATION: 70-year-old male with clinical suspicion for pulmonary embolism presents for evaluation COMPARISON: CT chest on pelvis dated 05/20/2025 LIMITATIONS: As below TECHNIQUE: CT angiogram of the chest was performed with intravenous contrast. Thin isotropic axial imaging was obtained from above the lung apices through the level of the adrenal glands during dynamic infusion of intravenous contrast for evaluation of the vessels. Multiplanar and 3-D maximum intensity projection reformulations were created from the raw CT data with independent workstation software by the radiologist. These were interpreted in conjunction with the axial images to render the findings listed below. Before infusion of intravenous contrast, radiology personnel investigated the possibility of an allergic history and any history of reaction to iodinated contrast material. Dose reduction was employed with automated exposure control. FINDINGS: Quality Assurance Tech image: Unremarkable. Exam Quality: Overall exam quality is suboptimal Pulmonary arterial enhancement is suboptimal, the breath-hold is adequate and there are some artifacts impacting image quality. Pulmonary Arteries: There are no filling defects within the pulmonary arterial system to suggest pulmonary embolus. There is prominence of the main pulmonary arteries, which can be seen in the setting of pulmonary arterial hypertension. Cardiovascular: The heart is enlarged. Atherosclerotic vascular calcifications are present in the aortic arch and coronary arteries. Mediastinum/pericardium: Unremarkable. Thyroid: Unremarkable. Tracheobronchial tree: Debris is present in the lower lobe bronchioles. Pleura: No pleural effusion or pneumothorax. Lungs: Moderate to severe centrilobular and paraseptal emphysema is seen. There is also dependent and bibasilar scarring/atelectasis. Persistent, albeit improved consolidation near the posterior left lung base. Nodules: No nodules are present that require follow up. Lymph nodes: No emerging adenopathy. Included images of the upper abdomen: Unremarkable. Visualized musculoskeletal structures: Chronic compression fractures of the T6, T7, T8, T9, T12, L1 and L2 vertebral bodies are seen, and appear similar compared to the prior study. Multiple posterior bilateral rib deformities are also noted. Impression: 1. Negative for acute pulmonary embolus. 2. The RV/LV ratio is <1. This is considered normal*. 3. Persistent, albeit improved consolidation near the posterior left lung base. 4. Additional chronic findings as above. *Reference: Campos Nayak., Estefania Wilson., Haseeb, Letty [place]., Rhonda, Dimitris., & Mai, R. F. (2006). Can CT pulmonary angiography allow assessment of severity and prognosis in patients presenting with pulmonary embolism? What the radiologist needs to know. Radiographics, 26(1), 23-39. Notes: The short axis of the right ventricle is measured at the level of the tricuspid valve from inner wall to inner wall at its widest point. The short axis of the left ventricle is measured at the level of the mitral valve from inner wall to inner wall at its widest point. Note that the short axes of the right ventricle and left ventricle may be located at different axial CT levels. RV/LV diameter ratio <1: normal RV/LV diameter ratio >1: mildly abnormal RV/LV diameter ratio >1.5: severely abnormal Report Dictated on Electronically Signed By: Carmine Caraballo MD Electronically Signed Date/Time: 06/04/2025 3:42 AM EDT ECG 12 lead Atrial fibrillation Ventricular premature complex Left bundle branch block XR chest 1 view Narrative: Patient Name: KRYSTINA MARKHAM : 1955 [id number] Exam Date/Time: 06/04/2025 00:06 Procedure: XR CHEST 1 VIEW Ordering Provider: STAFFORD TARAS Reason For Exam: DYSPNEA EXAMINATION: XR chest AP. EXAM DATE & TIME: 06/04/2025 12:06 AM EDT INDICATION: DYSPNEA ADDITIONAL INFORMATION: 70-year-old male with dyspnea presents for evaluation COMPARISON: Chest x-rays dated 06/02/2025, 05/26/2025 and 05/23/2025 TECHNIQUE: AP view of the chest was obtained. FINDINGS: Lines/support devices: Cardiac leads project over the chest, somewhat limiting evaluation. Right arm PICC is noted with its distal tip near the SVC. This is looped in the right axillary region (only partially imaged). Cardiomediastinal silhouette: The heart is borderline enlarged. Lungs/pleura: Interstitial coarsening is present. No focal consolidation, pleural effusion or pneumothorax. Osseous structures: Degenerative changes of the spine and shoulders are seen. No acute osseous abnormality is demonstrated. Remote deformity of the left humeral head/neck is seen. Bones are osteopenic. Other findings: None. Impression: 1. Right arm PICC is looped in the right axillary region (only partially imaged). 2. Cardiomegaly. Report Dictated on Electronically Signed By: Carmine Caraballo MD Electronically Signed Date/Time: 06/04/2025 1:36 AM EDT ECG 12 lead Atrial fibrillation Left bundle branch block No significant change from prior. Artifact noted. Occasional PVC Electronically Signed On 06-04-2025 00:32:08 EDT by Reese Stafford Summary of singh issues: Acute on chronic respiratory failure with known MRSA bacteremia undergoing current treatment with vanc (last day scheduled 07/05/25). Now with entero/rhinovirus. Pt meeting sepsis criteria. 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 Images from the original note were not included. Medical Teaching Service Progress Note Patient: Krystina Markham : 1955 Acct: [id number] PCP: Toi Davis MD Admitting Physician: Ashley Yang DO Admission Date: 06/03/2025 Admitting Diagnosis: Shortness of breath [R06.02] Hypoxemia [R09.02] COPD exacerbation (HCC) [J44.1] Acute on chronic congestive heart failure, unspecified heart failure type (HCC) [I50.9] Unit/Bed: B2-249/B2-249 A Hospital Day: 0 Code Status: Full Code Subjective: Overnight events: Episodes of hypotension BP 86/55, tachycardia, and tachypnea. Was placed on 4L of O2 via nasal cannula. Hypotension was fluid responsive. Patient seen at bedside. Noted to be very lethargic. Had to be awakened for every question and could only speak a few words before falling back to sleep. Denies chest pain, shortness of breath, and cough. 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 Admitted last 05/21/25 for sepsis 2/2 MRSA bacteremia and Streptococcus pneumoniae pneumonia, extubated on 05/22/25, and was discharged to SNF on 06/02 with a PICC line for vancomycin until 07/05/25. At SNF, patient noted to be in acute respiratory distress, cyanotic with O2 saturation 69%, tachypneic and tachycardic. Admitted to [facility]. Cefepime started. Respiratory PCR (+) for rhinovirus/enterovirus. Lactic acid normal. Blood culture, PNA PCR, sputum culture pending. Objective: Vitals: 06/04/25 0621 06/04/25 0703 06/04/25 0822 06/04/25 0913 BP: (!) 86/55 96/57 102/66 BP Location: Left arm Right arm Patient Position: Lying Lying Pulse: 86 80 72 71 Resp: 18 Temp: 37.1 C (98.8 F) 36.2 C (97.2 F) 36.4 C (97.6 F) TempSrc: Tympanic Temporal Temporal SpO2: 95% 92% 94% Weight: 169 lb 12.1 oz (77 kg) Height: 5' 8" (1.727 m) Temp (24hrs), Av.8 C (98.2 F), Min:36.2 C (97.2 F), Max:37.2 C (98.9 F) Intake/Output Summary (Last 24 hours) at 06/04/2025 0943 Last data filed at 06/04/2025 0621 Gross per 24 hour Intake 88.33 ml Output -- Net 88.33 ml Physical Exam Constitutional: Appearance: He is ill-appearing. Cardiovascular: Rate and Rhythm: Normal rate. Rhythm irregular. Heart sounds: No gallop. Pulmonary: Breath sounds: Wheezing (anterior chest) present. Comments: Unable to appreciate breath sounds posteriorly because of patient position Abdominal: General: Bowel sounds are normal. There is no distension. Palpations: Abdomen is soft. Tenderness: There is no abdominal tenderness. Musculoskeletal: Right lower leg: No edema. Left lower leg: No edema. Skin: Capillary Refill: Capillary refill takes less than 2 seconds. Neurological: Mental Status: He is lethargic. Polanco: No Drains: No Central Line/Port: PICC line, right brachial vein Intubated: No Diet: Adult diet Regular; Low Fat (less than or equal to 50 gm/day); No Carbonated Beverages Medications: Scheduled Meds[1] Continuous Infusions: Continuous Meds[2] PRN Meds: PRN Meds[3] Labs: CBC: Results from last 7 days Lab Units 06/04/25 0211 06/04/25 0024 06/04/25 0020 06/02/25 0014 06/01/25 0018 05/31/25 0514 WBC AUTO 10*3/uL -- -- 10.7 9.1 8.6 8.2 HEMOGLOBIN g/dL -- -- 12.1* 10.9* 10.7* 11.1* HEMOGLOBIN BG g/dl 13.0* 13.1* -- -- -- -- HEMATOCRIT % -- -- 34.9* 31.7* 31.5* 32.9* PLATELETS 10*3/uL -- -- 294 362 338 316 NEUTROS PCT AUTO % -- -- -- 74.4 73.8 75.7 LYMPHO PCT MAN % -- -- 4* -- -- -- LYMPHS PCT AUTO % -- -- -- 9.8* 9.6* 7.7* MONO PCT MAN % -- -- 2* -- -- -- MONOS PCT AUTO % -- -- -- 12.0 12.9 13.2* EOS PCT AUTO % -- -- -- 1.7 1.4 1.2 BMP: Results from last 7 days Lab Units 06/04/25 0020 06/02/25 0014 06/01/25 1647 SODIUM mmol/L 131* 131* 130* POTASSIUM mmol/L 4.5 4.2 3.9 CHLORIDE mmol/L 94* 94* 92* CO2 mmol/L 24 28 30 BUN mg/dL 24* 24* 25* CREATININE mg/dL 1.10 0.91 0.85 GLUCOSE mg/dL 136* 98 119* CALCIUM mg/dL 9.0 8.6* 8.6* LIVER PROFILE: Results from last 7 days Lab Units 06/04/25 0020 06/02/25 0014 06/01/25 0018 ALK PHOS U/L 114 114 103 BILIRUBIN TOTAL mg/dL 0.6 0.6 0.5 PROTEIN TOTAL g/dL 7.1 6.3* 5.8* ALT U/L 170* 187* 147* AST U/L 134* 247* 184* PT/INR: CARDIAC ENZYMES: Procalcitonin: Lab Results Component Value Date PROCAL 0.44 (H) 06/04/2025 Lactic acid: 0.7 nl Troponin: 22 > 30 > 20 Glucose: Results from last 7 days Lab Units 06/04/25 0820 POCT GLUCOSE mg/dL 169* ASSESSMENT/PLAN: Patient Active Problem List Diagnosis Date Noted Shortness of breath 06/04/2025 Encounter for removal of cardiac resynchronization therapy defibrillator (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) 06/03/2025 Elevated LFTs 06/03/2025 Bloodstream infection 2025 Acute metabolic encephalopathy 05/20/2025 EEG abnormality without seizure 11/03/2024 Requires continuous at home supplemental oxygen 11/03/2024 Acute on chronic respiratory failure with hypoxia and hypercapnia (HCC) 11/02/2024 Prolonged QT interval 11/02/2024 Acute hypercapnic respiratory failure (HCC) 11/01/2024 Acute on chronic systolic (congestive) heart failure (HCC) 09/16/2024 Moderate malnutrition (CMS/HCC) (HCC) 09/12/2024 Acute on chronic congestive heart failure, unspecified heart failure type (HCC) 09/10/2024 Financial difficulties 08/20/2024 Pulmonary HTN (HCC) 08/19/2024 DELORES on CPAP 04/15/2024 Heavy tobacco smoker 04/15/2024 Cigarette smoker 04/15/2024 Personal history of smoking 04/15/2024 Paroxysmal atrial fibrillation (HCC) 03/03/2024 Cervical spondylosis 03/02/2024 Non-pressure chronic ulcer of other part of right foot with unspecified severity (HCC) 02/17/2024 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) 11/12/2023 Medical non-compliance 11/12/2023 Anemia in other chronic diseases classified elsewhere 01/01/2023 Closed fracture of neck of left humerus with routine healing 12/31/2022 Hyponatremia 12/29/2022 COPD exacerbation (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) 07/17/2022 Permanent atrial fibrillation ([facility]) 08/25/2021 History of rib fracture 08/25/2021 Chronic hyponatremia 08/25/2021 Essential hypertension 08/25/2021 Alcohol consumption heavy 08/25/2021 COPD (chronic obstructive pulmonary disease) ([facility]) 08/25/2021 History of adenomatous polyp of colon 11/18/2019 Diverticulosis of large intestine without diverticulitis 10/27/2019 Compression fracture of thoracic vertebra with routine healing 10/07/2019 Osteoporosis 10/07/2019 Venous stasis dermatitis of left lower extremity 07/17/2017 Current moderate episode of major depressive disorder without prior episode ([facility]) 04/10/2017 Cor, pulmonale, acute ([facility]) 02/01/2016 Raynaud phenomenon 09/10/2015 Acute on chronic hypoxic respiratory failure 2/2 Sepsis vs COPDe Known MRSA bacteremia and Streptococcus pneumoniae pneumonia from previous admission 05/21/25 (+) SIRS criteria: tachycardia 116, tachypnea 32 Respiratory PCR (+) rhinovirus, enterovirus Lactic acid 0.7, Procalcitonin 0.44 - Vancomycin 1250 mg IV q24h (started 05/21) - Cefepime 2g IV q8h (started 06/04) - Follow-up blood culture - Follow-up PNA PCR, sputum culture - Daily CBC, CMP - Monitor mental status, vital signs - Cautious fluid repletion in the setting of heart failure - ID consult HFimpEF (EF 45%) S/P removal of ICD 05/25/25 in the setting of bacteremia MERLIN 05/25: EF 50%, mildly reduced LV and RV systolic function TTE 05/26: severely reduced LV and RV systolic function, moderate TR TTE 06/04: EF 45%, mildly reduced LV and RV systolic function, mild-moderate TR - Continue home Farxiga 10 mg daily - Hold home Losartan 25 mg daily - Hold home Metoprolol succinate 75 mg BID - Hold home Spironolactone 25 mg daily - Hold home Torsemide 30 mg BID - Strict I/Os - Daily weight - Follow up on TTE COPD Home O2 2L - Continue home Dulera 2 puffs BID and Spiriva 2 puffs daily - Duonebs q4h and PRN - Pulm consult: Methylprednisolone 40mg IV q6h DELORES Pulmonary HTN - Home autoBiPAP Atrial fibrillation Hx of DVT and PE - Continue home Eliquis 5 mg BID - Hold home Metoprolol succinate 75 mg BID CAD - Hold home Rosuvastatin 40mg daily in the setting of transaminitis Transaminitis Abdomen US hepatomegaly, Liver doppler US patent blood vessels History of alcohol abuse, last drink > 1 week (-) Hepatitis workup from previous admission - Hold home Rosuvastatin 40mg daily - Monitor LFTs Chronic hyponatremia Na bl 128-130 - Monitor Na MDD - Hold home sertraline 100 mg daily in the setting of prolonged Qtc Prolonged QTc Qtc 596 - Avoid Qtc prolonging medications History of Raynaud phenomenon FEN/GI/DVT IVF: None Electrolytes: Monitor and replace per protocols Diet: General GI PPX: No DVT Prophylaxis: No prophylaxis/Already on anticoagulation: Eliquis Telemetry: Currently on Telemetry / Reason: Atrial fibrillation, HFrEF DISPOSITION: Pending blood culture, PNA PCR, sputum culture, ID recs, monitor mental status and vital signs [1] apixaban, 5 mg, Oral, BID cefepime, 2,000 mg, IntraVENous, q8h chlorhexidine, , Topical, Daily collagenase, , Topical, Daily dapagliflozin, 10 mg, Oral, Daily dextromethorphan-guaiFENesin, 1 tablet, Oral, BID folic acid, 1 mg, Oral, Daily [Held by provider] furosemide, 40 mg, IntraVENous, BID ipratropium-albuterol, 3 mL, Nebulization, q4h [Held by provider] losartan, 25 mg, Oral, Daily methylPREDNISolone sod suc (PF), 40 mg, IntraVENous, q6h [Held by provider] metoprolol succinate XL, 75 mg, Oral, BID mometasone-formoterol, 2 puff, Inhalation, BID montelukast, 10 mg, Oral, Daily nicotine, 1 patch, TransDERmal, Daily pantoprazole, 40 mg, Oral, Nightly Or pantoprazole (ProtoNix) 40 mg in sodium chloride (PF) 0.9 % 10 mL injection, 40 mg, IntraVENous, Nightly [Held by provider] rosuvastatin, 40 mg, Oral, Daily [Held by provider] sertraline, 100 mg, Oral, Daily sodium chloride 0.9%, 5-40 mL, IntraVENous, q12h sodium chloride, 4 mL, Nebulization, BID spironolactone, 25 mg, Oral, Daily thiamine, 100 mg, Oral, Daily [Held by provider] torsemide, 30 mg, Oral, BID vancomycin, 1,250 mg, IntraVENous, q24h [2] [3] PRN medications: acetaminophen OR acetaminophen, dextrose, dextrose, glucagon (rDNA), glucose, ipratropium-albuterol, polyethylene glycol (PEG) 3350, promethazine OR promethazine OR promethazine, sodium chloride, sodium chloride 0.9% documented in this encounter [facility] 06-09-2025 Hospital Discharge instructions Zita Rene MD - 06/09/2025 4:46 PM EDT Images from the original note were not included. [facility] Medication Changes Start Taking Farxiga 10 mg daily Remeron 15 mg daily Change How You Take Torsemide 30 mg daily Stop Taking Zoloft Medication List ASK your doctor about these medications albuterol (2.5 MG/3ML) 0.083% nebulizer solution; Take 3 mL (2.5 mg) by nebulization as needed for wheezing or shortness of breath. apixaban 5 MG tablet; Commonly known as: Eliquis; Take 1 tablet (5 mg) by mouth 2 times daily. folic acid 1 MG tablet; Commonly known as: Folvite; TAKE 1 TABLET (1,000 MCG) BY MOUTH EVERY MORNING. losartan 25 MG tablet; Commonly known as: Cozaar; TAKE 1 TABLET BY MOUTH EVERY DAY metoprolol succinate XL 25 MG 24 hr tablet; Commonly known as: Toprol-XL; Take 3 tablets (75 mg) by mouth 2 times daily. Do not crush or chew. mometasone-formoterol 100-5 MCG/ACT inhaler; Commonly known as: Dulera 100; Inhale 2 puffs 2 times daily. Rinse mouth with water after use to reduce aftertaste and incidence of candidiasis. Do not swallow. rosuvastatin 40 MG tablet; Wait to take this until your doctor or other care provider tells you to start again.; Commonly known as: Crestor; TAKE 1 TABLET BY MOUTH EVERY DAY sertraline 100 MG tablet; Commonly known as: Zoloft; TAKE 1 TABLET BY MOUTH EVERY DAY spironolactone 25 MG tablet; Commonly known as: Aldactone; TAKE 1 TABLET BY MOUTH EVERY DAY thiamine 100 MG tablet; Commonly known as: Vitamin B1; Take 1 tablet (100 mg) by mouth daily. tiotropium 2.5 MCG/ACT inhaler; Commonly known as: Spiriva Respimat; Inhale 2 puffs daily. torsemide 10 MG tablet; Commonly known as: Demadex; Take 3 tablets (30 mg) by mouth 2 times daily. Vancomycin HCl in NS 1.5-0.9 GM/250ML-% solution; Commonly known as: Vancocin; Infuse 250 mL (1,500 mg) into a venous catheter Every 24 hours. If you have any questions about your medications please call your Primary Care Doctor Toi Davis MD [phone] Please go to all follow-up appointments (more details above): Future Appointments Date Time Provider Department Center 06/18/2025 2:30 PM PRIYA Rachel CNP [facility] None 07/02/2025 2:10 PM PRIYA Pedraza CNP [facility] None 07/06/2025 9:00 AM Rachael Ngo MD [facility] None Please make appointments with the following doctors (more details above): - Dr. Toi Davis (PCP) - Pulmonology (Lung Doctor) - Infectious Disease Doctor - Orthopedics GENERAL SIGNS AND SYMPTOMS GREEN ZONE: All Clear- Your Symptoms Are Under Control No recurrence of symptoms that led to hospitalization Able to do usual activities No fever No chest pain No shortness of breath This Means You Should: Continue taking your medications as prescribed Continue activity as tolerated Keep all doctor appointments YELLOW ZONE: Caution as Your Health may be Worsening Recurrence of symptoms that led to hospitalization Fever of 100 degrees or higher Increased fatigue or restlessness Intolerant side-effects of medications Uneasy feeling or that something is wrong This Means You Should: Call your doctor for further instructions Toi Davis MD [phone] [place] [address] RED ZONE: Medical Alert Severe or unrelieved shortness of breath at rest Unrelieved chest pain Confusion or you can't think clearly This Means You Should Call 911 Immediately It was a pleasure taking care of you! Zita Rene MD [facility] Discharge Instructions: -Weight bearing as tolerated -Activity as tolerated -Ice to reduce pain and swelling. Do not put ice directly on the skin. -Follow-up outpatient with Dr. Ray in one week to discuss your right shoulder mass. The office contact information is provided in your paperwork. -Take medications as prescribed by the hospital doctors -Return to hospital if you experience acute changes in your strength or sensation as well as any fevers, chills, or feeling ill Beryl Espana RN - 06/09/2025 11:20 AM EDT Images from the original note were not included. Continuity of Care Form Patient Name: Krystina Markham : 1955 Admit date: 06/03/2025 Discharge date: Code Status Order: Full Code Advance Directives: N Admitting Physician: Ashley Yang DO PCP: Toi Davis MD Discharging Nurse: Discharging Hospital Unit/Room#: B2-249/B2-249 A Discharging Unit Phone Number: Emergency Contact: Extended Emergency Contact Information Primary Emergency Contact: Melodie Tavarez [address]: [address] [place] [address] Mobile Relation: Other Past Surgical History: Past Surgical History: Procedure Laterality Date ABDOMINAL SURGERY BRONCHOSCOPY 02/25/2020 BRONCHOSCOPY (HISTORICAL) 02/25/2020 CARDIAC ELECTROPHYSIOLOGY PROCEDURE N/A 05/25/2025 Performed by Karthik Mendoza MD at [facility] Cardiac Cath/EP Lab COLONOSCOPY 10/27/[address] CHEST ANGIOGRAM W AND/OR WO IV CONTRAST 07/12/2022 CT CHEST ANGIOGRAM W AND/OR WO IV CONTRAST 07/12/2022 [facility] CT IMAGING FINGER AMPUTATION Left HERNIA REPAIR NOSE SURGERY PACEMAKER (HISTORICAL) Immunization History: Immunization History Administered Date(s) Administered Influenza, High Dose Seasonal, Preservative Free 07/25/2022 Influenza, Unspecified 08/15/2014 Influenza, adjuvanted, trivalent, preservative-free 09/28/2024 Influenza, injectable, quadrivalent, preservative free 09/15/2019, 11/21/2020, 10/13/2021 Pneumococcal Conjugate PCV20, Pf (Prevnar 20) 01/07/2023 Pneumococcal Polysaccharide PPSV23 01/16/2016 Tdap 08/15/2014 Active Problems: Medical Problems Problem List * (Principal) Shortness of breath Chest pain, unspecified type Hypochloremia Tobacco abuse Presence of cardiac resynchronization therapy defibrillator (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) Overview Signed 11/12/2023 12:46 AM by Gifty Holguin MD Biventricular ICD placed in 2019 Alcohol abuse, continuous COPD exacerbation (HCC) Hyponatremia Closed fracture of neck of left humerus with routine healing Anemia in other chronic diseases classified elsewhere Acute exacerbation of CHF (congestive heart failure) (HCC) Medical non-compliance On continuous oral anticoagulation Right arm numbness Persistent depressive disorder DELORES (obstructive sleep apnea) Poor compliance with medication Non-pressure chronic ulcer of other part of right foot with unspecified severity (HCC) Diabetes due to undrl condition w oth diabetic neuro comp (HCC) Alcohol abuse with withdrawal, uncomplicated (HCC) Cervical spondylosis Paroxysmal atrial fibrillation (HCC) DELORES on CPAP Heavy tobacco smoker Cigarette smoker Personal history of smoking Pulmonary HTN (HCC) Financial difficulties Acute on chronic congestive heart failure, unspecified heart failure type (HCC) Moderate malnutrition (CMS/HCC) (HCC) Acute on chronic systolic (congestive) heart failure (HCC) Acute hypercapnic respiratory failure (HCC) Acute on chronic respiratory failure with hypoxia and hypercapnia (HCC) Prolonged QT interval EEG abnormality without seizure Overview Signed 11/03/2024 7:24 AM by Siria Dumont MD The findings are consistent with a LEFT [id number]-hr-[id number] quadrant cortical irritability superimposed on mild global cerebral dysfunction nonspecific as to etiology. 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) Chronic hyponatremia Overview Addendum 11/12/2023 12:46 AM by Gifty Holguin MD Na usually 124-128. Beer potomania Essential hypertension Compression fracture of thoracic vertebra with routine healing Osteoporosis Diverticulosis of large intestine without diverticulitis History of adenomatous polyp of colon Raynaud phenomenon Alcohol consumption heavy COPD (chronic obstructive pulmonary disease) ([facility]) Venous stasis dermatitis of left lower extremity Current moderate episode of major depressive disorder without prior episode (CMS/HCC) Heart failure with improved ejection fraction (HFimpEF) ([facility]) Overview Addendum 11/02/2024 3:07 PM by Siria Dumont MD 11/2023 ; Left Ventricle: Left ventricle is moderately dilated. LVIDd is 6.4 cm. Mildly increased wall thickness. Severely reduced left ventricular systolic function. EF by 2D Simpsons Biplane is 21%. Global hypokinesis present. Right Ventricle: Right ventricle is severely dilated. Pacemaker lead present in the right ventricle. Tricuspid Valve: Moderately severe (3+) regurgitation. RVSP may be underestimated in the setting of severe TR. RVSP is 47 mmHg. Left Atrium: Left atrium is severely dilated. LA Vol Index A/L is 73 mL/m2. Right Atrium: Right atrium is severely dilated. Mitral Valve: Annular dilation. Mild to moderate (1-2+) regurgitation. IVC is severely dilated. IVC diameter is dilated and decreases less than 50% during inspiration; therefore the estimated right atrial pressure is elevated (~15 mmHg). Bacteremia Isolation/Infection: Droplet MRSA, Rhinovirus Nurse Assessment: Last Vital Signs: BP 109/70 (BP Location: Right arm, Patient Position: Sitting) Pulse 78 Temp 37.1 C (98.8 F) (Temporal) Resp 18 Ht 5' 8" (1.727 m) Wt 169 lb 6.4 oz (76.8 kg) SpO2 95% BMI 25.76 kg/m Last documented pain score (0-10 scale): Last Weight: Wt Readings from Last 1 Encounters: 06/09/25 169 lb 6.4 oz (76.8 kg) Mental Status: MALIKA Patient Mental Status: oriented and slight confusion at times IV Access: MALIKA IV Access: None Nursing Mobility/ADLs: Walking Minimal assistance Transfer Minimal assistance Bathing Minimal assistance Dressing Minimal assistance Toileting Minimal assistance Feeding Minimal assistance Greenhouse Florist Minimal assistance Med Delivery no Wound Care Documentation and Therapy: Wound/Incision 05/25/25 Incision Chest Left;Upper (Active) Site Assessment Clean;Dry;Intact 06/08/252140 Oriana-Wound Assessment Clean 06/04/252120 Odor None 06/01/25 1600 Drainage Amount None 06/04/252120 Treatments Cleansed;Pharmaceutical agent 06/06/25 0852 Primary Dressing Open to air 06/08/252140 Secured with Paper tape 06/06/25 0852 Dressing Status Clean, dry & intact 06/06/25 1510 Number of days: 14 Elimination: Continence: Bowel: yes Bladder: yes Urinary Catheter: None Colostomy/Ileostomy/Ileal Conduit: None Date of Last BM: 06/10 Intake/Output Summary (Last 24 hours) at 06/09/2025 1120 Last data filed at 06/09/2025 0900 Gross per 24 hour Intake 360 ml Output -- Net 360 ml I/O last 3 completed shifts: In: 537 (7 mL/kg) [P.O.:537] Out: - (0 mL/kg) Weight: 76.8 kg Safety Concerns: history of falls (last 30 days) Impairments/Disabilities: none Nutrition Therapy: Current Nutrition Therapy: Oral diet: general Routes of Feeding: oral Liquids: thin liquids Daily Fluid Restriction: no Last Modified Barium Swallow with Video (Video Swallowing Test): not done Treatments at the Time of Hospital Discharge: Respiratory Treatments: Oxygen Therapy: is on oxygen at room air villa 2l L/min per nasal cannula. 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 Slow vancomycin infusion over 4 hours, Benadryl 25 mg IV prior to vancomycin infusion. Patient will also need outpatient orthopedic surgery follow up for right shoulder findings. The individual is being admitted to a nursing facility directly from an [facility] or a unit of a hospital that is not operated by or licensed by [facility] under section 5119.14 or 5160-3-15.1 5 The individual requires the level of services provided by a nursing facility for the condition for which he or she was treated in the hospital and, Physician Certification: I certify the above information and transfer of Krystina Markham is necessary for the continuing treatment of the diagnosis listed and that he requires halfway facility for less than 30 days. Update Admission H&P: No change in H&P PHYSICIAN SIGNATURE: documented in this encounter [facility] 06-09-2025 Consult note Associated Order (s): IP CONSULT TO ORTHOPAEDIC SURGERY Images from the original note were not included. Ortho Consult Patient: Krystina Markham Date of : 1955 Acct: [id number] PCP: Toi Davis MD Date of Admission: 06/03/2025 Date of Service: Pt seen/examined on 06/09/2025 Chief Complaint: Right shoulder mass and right shoulder arthritis History Of Present Illness: This is a 70 y.o. male admitted to [facility] 05/20 for respiratory distress with MRSA sepsis pneumonia and bacteremia, with rhinovirus. At that time he began a a 6 week course of Vancomycin and Cefepime complicated by possible red man syndrome. Blood cultures from 06/04 have had no growth for 5 days. Orthopedic surgery was consulted for "right shoulder effusion." Upon evaluation, patient is resting at bedside drinking a coffee. He is confused and is alert and oriented to self and his birthday, but not the month, year, or location. He states that he has had chronic pain in his right shoulder and has had a mass over the anterior aspect of his shoulder for a long time. The mass is nontender and he does not recall it ever being warm, red or draining. He does not believe the pain in his shoulder or the mass has changed significantly recently. He denies history of other masses as well as cancers or bone lesions. He denies fevers, chills, feeling sick, night sweats, recent unplanned weight loss. Ortho called ex- Melodie ([phone]) for collateral information and she reports the swelling is chronic, however, it is larger today and looks more "puffy" than baseline. Patient reportedly has a history of a right rotator cuff tear which has limited his overall shoulder function significantly. ESR/CRP 19.4/8. WBC 7.4 06/09/25 Patient endorses smoking, drinking, denies drugs Patient ambulation status: no difficulty Antiplatelets/Anticoagulation includes: LMW heparin, none outpatient Hx from chart, patient, and family. Past Medical History: Medical History[1] Past Surgical History: Surgical History[2] Home Medications: Prior to Admission medications Medication Sig Start Date End Date Taking? Authorizing Provider albuterol (2.5 MG/3ML) 0.083% nebulizer solution Take 3 mL (2.5 mg) by nebulization as needed for wheezing or shortness of breath. 09/28/24 Olya Nunes MD apixaban (Eliquis) 5 MG tablet Take 1 tablet (5 mg) by mouth 2 times daily. 09/16/24 Toi Davis MD folic acid (Folvite) 1 MG tablet TAKE 1 TABLET (1,000 MCG) BY MOUTH EVERY MORNING. 03/15/25 Toi Davis MD losartan (Cozaar) 25 MG tablet TAKE 1 TABLET BY MOUTH EVERY DAY 03/15/25 Toi Davis MD metoprolol succinate XL (Toprol-XL) 25 MG 24 hr tablet Take 3 tablets (75 mg) by mouth 2 times daily. Do not crush or chew. 06/02/25 06/02/26 Roger Munoz MD mometasone-formoterol (Dulera 100) 100-5 MCG/ACT inhaler Inhale 2 puffs 2 times daily. Rinse mouth with water after use to reduce aftertaste and incidence of candidiasis. Do not swallow. 06/02/25 06/02/26 Roger Munoz MD rosuvastatin (Crestor) 40 MG tablet TAKE 1 TABLET BY MOUTH EVERY DAY 05/17/25 Toi Davis MD sertraline (Zoloft) 100 MG tablet TAKE 1 TABLET BY MOUTH EVERY DAY 05/30/25 Toi Davis MD spironolactone (Aldactone) 25 MG tablet TAKE 1 TABLET BY MOUTH EVERY DAY 05/17/25 Toi Davis MD thiamine (Vitamin B1) 100 MG tablet Take 1 tablet (100 mg) by mouth daily. 06/03/25 Roger Munoz MD tiotropium (Spiriva Respimat) 2.5 MCG/ACT inhaler Inhale 2 puffs daily. 06/03/25 06/03/26 Roger Munoz MD torsemide (Demadex) 10 MG tablet Take 3 tablets (30 mg) by mouth 2 times daily. 06/02/25 06/02/26 Roger Munoz MD vancomycin IVPB 1500 mg in 250 mL NS (premix) Infuse 250 mL (1,500 mg) into a venous catheter Every 24 hours. 06/03/25 Roger Munoz MD dapagliflozin (Farxiga) 5 MG tablet Take 1 tablet (5 mg) by mouth daily. 09/17/24 06/04/25 Toi Davis MD sodium chloride 0.9% (NS) 0.9 % flush 10 mL by IntraCATHeter route every 12 hours. 06/02/25 06/04/25 Roger Munoz MD sodium chloride 0.9% (NS) 0.9 % flush 10 mL by IntraCATHeter route as needed for line care (before blood draws, before and after infusion or medication administration). 06/02/25 06/04/25 Roger Munoz MD Current Hospital Medications: Current Medications[3] Allergies: Patient has no known allergies. Social History: Social History Socioeconomic History Marital status: Spouse name: Not on file Number of children: Not on file Years of education: Not on file Highest education level: Not on file Occupational History Not on file Tobacco Use Smoking status: Every Day Current packs/day: 0.25 Average packs/day: 0.3 packs/day for 53.0 years (13.3 ttl pk-yrs) Types: Cigarettes Start date: 1972 Smokeless tobacco: Never Tobacco comments: 8 cig daily Substance and Sexual Activity Alcohol use: Yes Alcohol/week: 7.0 standard drinks of alcohol Types: 7 Cans of beer per week Comment: once beer daily Drug use: Never Sexual activity: Not on file Other Topics Concern Not on file Social History Narrative Not on file Social Drivers of Health Financial Resource Strain: Low Risk (06/04/2025) Overall Financial Resource Strain (CARDIA) Difficulty of Paying Living Expenses: Not very hard Food Insecurity: Patient Declined (06/04/2025) Hunger Vital Sign Worried About Running Out of Food in the Last Year: Patient declined Ran Out of Food in the Last Year: Patient declined Transportation Needs: No Transportation Needs (06/04/2025) PRAPARE - Transportation Lack of Transportation (Medical): No Lack of Transportation (Non-Medical): No Physical Activity: Inactive (06/04/2025) Exercise Vital Sign Days of Exercise per Week: 0 days Minutes of Exercise per Session: 0 min Stress: No Stress Concern Present (06/04/2025) Citizen Of [place] of Occupational Health - Occupational Stress Questionnaire Feeling of Stress : Not at all Social Connections: Socially Isolated (06/04/2025) Social Connection and Isolation Panel [NHANES] Frequency of Communication with Friends and Family: Never Frequency of Social Gatherings with Friends and Family: Never Attends Zoroastrian Services: Never Active Member of Clubs or Organizations: No Attends Club or Organization Meetings: Never Marital Status: Intimate Partner Violence: Not At Risk (06/04/2025) Humiliation, Afraid, Rape, and Kick questionnaire Fear of Current or Ex-Partner: No Emotionally Abused: No Physically Abused: No Sexually Abused: No Housing Stability: Low Risk (06/04/2025) Housing Stability Vital Sign Unable to Pay for Housing in the Last Year: No Number of Times Moved in the Last Year: 0 Homeless in the Last Year: No Family History: Family History[4] Further Family History is noncontributory to this injury. REVIEW OF SYSTEMS: Review of Systems - General ROS: negative for - chills, fatigue, fever, malaise or night sweats Psychological ROS: negative Ophthalmic ROS: negative ENT ROS: negative for - headaches or sore throat Hematological and Lymphatic ROS: negative for - bleeding problems or blood clots Respiratory ROS: no cough, shortness of breath, or wheezing Cardiovascular ROS: no chest pain or dyspnea on exertion Gastrointestinal ROS: negative Musculoskeletal ROS: See HPI Neurological ROS: negative for - bowel and bladder control changes, gait disturbance or numbness/tingling All other systems reviewed and are negative PHYSICAL EXAM: BP 99/51 (BP Location: Left arm, Patient Position: Lying) Pulse 76 Temp 37.6 C (99.7 F) (Temporal) Resp 18 Ht 1.727 m (5' 8") Wt 76.8 kg (169 lb 6.4 oz) SpO2 96% BMI 25.76 kg/m GENERAL APPEARANCE: Awake and oriented x1. No acute distress, except appropriate to injury. MOOD AND AFFECT: Calm appropriate to situation GAIT AND STATION: Patient is in bed. COORDINATION and BALANCE: Patient is grossly coordinated unable to ambulate secondary to known injury. Lymphadenopathy: none on examination of the affected extremity(s) Right Upper Extremity: -No obvious pain or deformity to inspection with normal joint range of motion, stability, and muscle strength except noted below -No TTP over humerus, elbow, forearm, wrist, hand, or fingers -TTP: AC joint and lateral/posterior shoulder joint tenderness -Radial pulse palpable -SILT in radial/median/ ulnar nerve distributions -Motor + AIN/PIN/ulnar nerve functions -No Lymphedema -Skin intact except where noted below -Painless pROM at elbow/wrist No short arc range of motion pain in the shoulder. No warmth posterior or lateral at level of shoulder joint. Patient is able to actively move the shoulder in a small circumferential arc of motion without obvious discomfort. With passive range of motion there is obvious crepitus within the shoulder with associated pain. Approximately 10 x 13 cm round superficial soft tissue mass or cyst over anterolateral shoulder that is soft with some septations versus nodularity. Does not appear to be fixed, but incompletely evaluated due to baseline shoulder stiffness. Minimal warmth and redness is not significant different than the remainder of his torso. Does not seem to change in size with compression. Labs: CBC: Lab Results Component Value Date WBC 7.4 06/09/2025 RBC 4.13 (L) 06/09/2025 BMP: Lab Results Component Value Date GLUCOSE 98 06/09/2025 CO2 26 06/09/2025 BUN 29 (H) 06/09/2025 CREATININE 0.82 06/09/2025 CALCIUM 8.7 (L) 06/09/2025 PT/INR: No results found for: "PT", "INR", "APTT" Type and Screen: No results found for: "RH", "LABANTI" CRP: No results found for: "CRP" ESR: No results found for: SEDRATE HgBA1c: No components found for: LABA1C The above labs were reviewed by me. Radiology: The below images were independently reviewed and interpreted with pertinent findings noted below. XR: Right shoulder 06/09/25: No fractures or dislocations identified. Severe glenohumeral and acromioclavicular osteoarthritis. Soft tissue mass anterolateral without calcifications. MRI: Right shoulder w/wo contrast 06/09/25 Pending Radiology reports reviewed. ASSESSMENT: 70 y.o. male with R shoulder mass vs cyst and severe shoulder arthritis PLAN: -No acute surgical intervention. Clinical history and shoulder examination consistent with likely benign fatty tumor as well as severe osteoarthritis with history of rotator cuff tear. Patient is able to actively move the shoulder to a degree that is explainable with his radiographic findings and rotator cuff history. His ESR and white blood cell count are normal, CRP is down significantly from 134 on 05/21 to 19 today. He has cleared his blood cultures and therefore concern for septic arthritis of the shoulder is low at this point. Given the size of his soft tissue mass and its proximity to the shoulder joint will order an MRI with and without contrast. -WB AT -Orthopaedic surgery will follow for MRI results and update plan of care as indicated. Ronnie Pelletier MD Orthopaedic Surgery, PGY-4 Discussed with the resident and I agree with the plan. I read to the chart and reviewed the MRI. He has findings consistent with rotator cuff arthropathy with significant amount of fluid collection. Bhavin Ray MD [facility] Clinically this does not appear to be infection and I believe observation only is indicated. I talked to our PA and she will look up an appointment to see Dr. Jackson in follow-up to consider any type of intervention for the osteoarthritic cyst formation. Please call there is any further questions. [1] Past Medical History: Diagnosis Date Alcohol consumption heavy 09/10/2015 stopped 3w ago Asthma (HHS/HCC) Atrial fibrillation (HCC) CHF (congestive heart failure) (HCC) 01/31/2016 COPD (chronic obstructive pulmonary disease) (HCC) 09/10/2015 Cor, pulmonale, acute (HCC) Deep venous thrombosis (HCC) 02/2016 Depression Hx of blood clots Obesity 09/10/2015 DELORES (obstructive sleep apnea) Pulmonary embolus (HCC) 6 16 Raynaud phenomenon 09/10/2015 Smoker 09/10/2015 [2] Past Surgical History: Procedure Laterality Date ABDOMINAL SURGERY BRONCHOSCOPY 02/25/2020 BRONCHOSCOPY (HISTORICAL) 02/25/2020 CARDIAC ELECTROPHYSIOLOGY PROCEDURE N/A 05/25/2025 Performed by Karthik Mendoza MD at [facility] Cardiac Cath/EP Lab COLONOSCOPY 10/27/[address] CHEST ANGIOGRAM W AND/OR WO IV CONTRAST 07/12/2022 CT CHEST ANGIOGRAM W AND/OR WO IV CONTRAST 07/12/2022 [facility] CT IMAGING FINGER AMPUTATION Left HERNIA REPAIR NOSE SURGERY PACEMAKER (HISTORICAL) [3] Current Facility-Administered Medications: acetaminophen (Tylenol) tablet 650 mg, 650 mg, Oral, q6h PRN OR acetaminophen (Tylenol) suppository 650 mg, 650 mg, Rectal, q6h PRN, Reji Leon MD alteplase (Cathflo Activase) 2 mg in sterile water 2 mL injection, 2 mg, IntraCATHeter, PRN, Ivan Connolly MD, 2 mg at 06/05/25 0121 ammonium lactate (Lac-Hydrin) 12 % lotion, , Topical, PRN, Mayda Shankar MD apixaban (Eliquis) tablet 5 mg, 5 mg, Oral, BID, Reji Leon MD, 5 mg at 06/09/25 1003 cetirizine (ZyrTEC) tablet 10 mg, 10 mg, Oral, Daily, Zita Rene MD, 10 mg at 06/09/25 1003 chlorhexidine (Hibiclens) 4 % solution, , Topical, Daily, Reji Leon MD, Given at 06/08/25 1251 collagenase 250 UNIT/GM ointment, , Topical, Daily, Reji Leon MD, Given at 06/08/25 0854 dapagliflozin (Farxiga) tablet 10 mg, 10 mg, Oral, Daily, Reji Leon MD, 10 mg at 06/09/25 1003 dextromethorphan-guaiFENesin (Mucinex DM) 30-600 MG per 12 hr tablet 1 tablet, 1 tablet, Oral, BID, Reji Leon MD, 1 tablet at 06/09/25 1003 dextrose 5 % infusion, 100 mL/hr, IntraVENous, PRN, Reji Leon MD dextrose 50 % solution 12.5 g, 12.5 g, IntraVENous, PRN, Reji Leon MD diphenhydrAMINE (BENADryl) injection 25 mg, 25 mg, IntraVENous, Daily, Mayda Shankar MD, 25 mg at 06/09/25 0430 folic acid (Folvite) tablet 1 mg, 1 mg, Oral, Daily, Reji Leon MD, 1 mg at 06/09/25 1003 glucagon (human recombinant) injection 1 mg, 1 mg, IntraMUSCular, PRN, Reji Leon MD glucose oral gel 15 g, 15 g, Oral, PRN, Reji Leon MD Insulin Lispro (Humalog) injection 0-12 Units, 0-12 Units, SubCUTAneous, TID WC AND Insulin Lispro (Humalog) injection 0-12 Units, 0-12 Units, SubCUTAneous, Nightly, Reji Leon MD ipratropium-albuterol (Duo-Neb) 0.5-2.5 mg/3 mL nebulizer solution 3 mL, 3 mL, Nebulization, 4x daily PRN, Reji Leon MD ipratropium-albuterol (Duo-Neb) 0.5-2.5 mg/3 mL nebulizer solution 3 mL, 3 mL, Nebulization, q4h, Mayda Shankar MD, 3 mL at 06/09/25 1547 losartan (Cozaar) tablet 25 mg, 25 mg, Oral, Daily, Mayda Shankar MD, 25 mg at 06/09/25 1003 metoprolol succinate XL (Toprol-XL) 24 hr tablet 75 mg, 75 mg, Oral, BID, Mayda Shankar MD, 75 mg at 06/09/25 1003 mirtazapine (Remeron Kelsea-Tab) disintegrating tablet 15 mg, 15 mg, Oral, Nightly, Zita Rene MD mometasone-formoterol (Dulera 200) 200-5 MCG/ACT inhaler 2 puff, 2 puff, Inhalation, BID, Reji Leon MD, 2 puff at 06/09/25 1257 montelukast (Singulair) tablet 10 mg, 10 mg, Oral, Daily, Reji Leon MD, 10 mg at 06/09/25 1003 nicotine (Nicoderm, Step 2) 14 MG/24HR patch 1 patch, 1 patch, TransDERmal, Daily, Reji Leon MD, 1 patch at 06/08/25 0851 pantoprazole (ProtoNix) EC tablet 40 mg, 40 mg, Oral, Nightly, 40 mg at 06/08/252055 OR pantoprazole (ProtoNix) 40 mg in sodium chloride (PF) 0.9 % 10 mL injection, 40 mg, IntraVENous, Nightly, Reji Leon MD, 40 mg at 06/06/252126 polyethylene glycol (PEG) 3350 (Miralax) packet 17 g, 17 g, Oral, Daily PRN, Reji Leon MD [COMPLETED] predniSONE (Deltasone) tablet 25 mg, 25 mg, Oral, BID, 25 mg at 06/07/25 213 FOLLOWED BY predniSONE (Deltasone) tablet 20 mg, 20 mg, Oral, Daily, Mayda Shankar MD, 20 mg at 06/09/25 1003 promethazine (Phenergan) tablet 25 mg, 25 mg, Oral, q6h PRN OR promethazine (Phenergan) suppository 25 mg, 25 mg, Rectal, q12h PRN OR promethazine (Phenergan) injection 25 mg, 25 mg, IntraMUSCular, q4h PRN, Reji Leon MD rosuvastatin (Crestor) tablet 40 mg, 40 mg, Oral, Daily, Mayda Shankar MD, 40 mg at 06/09/25 1002 sodium chloride 0.9 % infusion, 5-250 mL/hr, IntraVENous, PRN, Reji Leon MD sodium chloride 0.9% (NS) flush 5-40 mL, 5-40 mL, IntraVENous, q12h, Reji Leon MD, 10 mL at 06/09/25 0430 sodium chloride 0.9% (NS) flush 5-40 mL, 5-40 mL, IntraVENous, PRN, Reji Leon MD sodium chloride 3 % hypertonic nebulizer solution 4 mL, 4 mL, Nebulization, BID, Reji Leon MD, 4 mL at 06/09/25 0834 spironolactone (Aldactone) tablet 25 mg, 25 mg, Oral, Daily, Mayda Shankar MD, 25 mg at 06/09/25 1003 thiamine (Vitamin B1) tablet 100 mg, 100 mg, Oral, Daily, Reji Leon MD, 100 mg at 06/09/25 1003 torsemide (Demadex) tablet 30 mg, 30 mg, Oral, Daily, Mayda Shankar MD, 30 mg at 06/09/25 1004 vancomycin (Vancocin) 1,000 mg in sodium chloride 0.9 % 250 mL IVPB (Vial Mate), 1,000 mg, IntraVENous, q24h, Reji Leon MD, 1,000 mg at 06/09/25 0514 [4] Family History Problem Relation Name Age of Onset Asthma Father Congenital Anomaly Father Cancer Father Asthma Sister Heart disease Mother Heart disease Brother Pacemaker Mother Congenital Anomaly Sister Cancer Mother Diabetes Mother Associated Order(s): IP CONSULT TO GERIATRICS [facility] Geriatric Medicine Inpatient Consult Service Admission Date: 06/03/2025 Admission Status: INPATIENT Chief Complaint: Chief Complaint Patient presents with Shortness of Breath Pt brought in by EMS for SOB from [facility]. Pt currently recently diagnosed with pneumonia receiving IV vancomycin. HX of COPD and CHF. Reason for Appointment Geriatrics consulted for guardianship - lacking capacity Assessment & Plan Principal Problem: Shortness of breath Active Problems: COPD exacerbation (HCC) DELORES (obstructive sleep apnea) Pulmonary HTN (HCC) Prolonged QT interval Sepsis (HCC) MRSA bacteremia Transaminitis Permanent atrial fibrillation (HCC) Chronic hyponatremia Heart failure with improved ejection fraction (HFimpEF) ([facility]) Cognitive impairment Evaluation of decision making capacity --+ history of cognitive decline at home. 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 Continue to weigh risk/benefits of therapy. -recommend resuming sertraline to avoid withdraw symptoms --Recommend outpatient follow up at [facility]) for more in depth cognitive evaluation when in usual state of health. Added to discharge information -agree that patient is unable to demonstrate capacity in discharge disposition at this time as he is unable to provide clear plan for maintenance of IV antibiotics, he is unable to provide information on the need for antibiotics or the need for more assistance at home -pt has POA, ex- Melodie who will bring in the paperwork from home. She is in agreement to continue to serve as the patient's POA -at this time, recommend involving POA in discharge planning and in complex medical decision making -given that he does have POA who is actively involved in his care and discharge planning, I do not think that it is necessary to move towards guardianship at this time Depression -long standing, Melodie is concerned about it being worse given prolonged hospitalization and time for rehab -continue to monitor closely, consider psychiatry/psychology support at facility at discharge -recommend resuming sertraline Right shoulder pain/effusion -chronic pain and rotator cuff issues, taking tylenol at home prn -decrease ROM and effusion on exam -MRSA bacteremia on long course of vancomycin -LFTs improved, consider low dose acetaminophen for pain control that may contribute to his irritablility At risk delirium --Prevention of delirium is critically important as development of delirium poses significant risk of morbidity and mortality to individuals. Increasing the risk of in-hospital mortality, functional decline institutionalization at senior care, and poor short-term outcomes. --Avoid sedating/anticholinergic medications. Encourage sleep hygiene to maintain day/night cycle, consider melatonin if needed for sleep. --Encourage family visits, minimize barriers to nutrition, optimize sensory input and access to assistive devices where indicated, encourage time up in chair as able, encourage regular ambulation with assistance. --D/C Polanco, restraints, IV lines, as able, implement delirium protocol and reserve Haldol/sedatives for if patient is danger to self/others/treatment -monitor with medications including benadryl and steroids, resume sertraline when able to minimize risk for withdraw -Qtc prolonged @ 523 I spent total time of 75 minutes face to face with the patient and/or family discussing the diagnosis and importance of compliance with the treatment plan as well as documenting on the day of the visit. In addition, that total time includes the following: -Reviewing previous notes, -Reviewing labs, -Obtaining and/or reviewing separately obtained history, -Ordering prescription medications, tests and procedures, -Communicating results to the patient/family/caregiver, -Counseling/educating the patient/family/caregiver, -Documenting clinical information in the patients electronic record, -Coordination of care for the patient, and -Performing a medically appropriate exam and/or evaluation Subjective: HPI 70 y.o. year-old male presented To the hospital from SNF for shortness of breath. He had extended hospitalization 05/20 - 06/02 for septic shock due to MRSA bacteremia and left lower lobe pneumonia, acute respiratory failure requiring intubation, VIMAL, acute encephalopathy. He initially presented from home when found by his minimally responsive. He was discharged to SNF on 06/02 with plans for long-term antibiotic therapy with vancomycin until early July and returned to the hospital 06/03 for this admission. Per review of H&P and ED notes patient presented with acute respiratory distress, cyanotic with O2 sats 69%, hypotension. He met sepsis criteria with started on cefepime and vancomycin. Respiratory PCR subsequently positive for human rhinovirus and enterovirus, treated for COPD exacerbation. Subsequently developed concerns for "red man" syndrome, slower infusion of vancomycin and started on Benadryl prior to infusions. Steroids are being tapered. Has intermittently declined PAP use at night with history of nonadherence reported. Capacity was assessed by primary team yesterday and determined that patient lacks capacity, he is unable to explain the need for multiple complex treatments and unable to state a particular reason for declining SNF apart from preference. On further chart review, concern for dementia appears to have originally been raised in 2023. Appears his ex- is his main support who assists with ADLs. He does have a history of EtOH use-appears that at least at 1 point he was drinking a 12 pack of beer a day. Labs with sodium 132, potassium 3.7, BUN 29, creatinine 0.82 Alk phos 88, albumin 2.8 AST 16, ALT 42 WBC 7.4, hemoglobin 12.4, platelets 135 (downtrending) Chest x-ray completed today with mild cardiomegaly, questionable subtle infiltrate or airspace disease left lung and right lung base, several remote right rib fractures, probable rotator cuff tear right CT head completed 11/01/2024 for mental status change-no acute ventricles and sulci with prominence, consistent with age related cerebral volume loss, scattered foci of white matter changes MRI of the brain completed 02/13/2024 with moderate generalized brain parenchymal volume loss, scattered patchy white matter changes Last BM documented 06/07 New DESC documented at 2 on 06/06 PM shift, documented as 1 on 06/07 PM shift otherwise scores documented have been 0 for this admission Reviewed MAR-daily IV Benadryl 25 mg, current dose of prednisone 20 mg daily, sertraline has been on hold Last dose of cefepime was 06/06/1101/11/1936 , No as needed medication use Geriatrics ED screen: Quick Cognitive Screen (QCS): Nursing Delirium Screen (Nu-Desc): Nursing Delirium Symptom Checklist Total Score: 0 Conversation with patient: limited history from patient, states he wants to go home, doesn't want to go to rehab but "you'll do what you want anyway." -acknowledges in the hospital with breathing trouble. Now on antibiotics. Unable to state reasons -denies trouble with depression, anxiety, memory -admits to right shoulder pain with movement, buttock pain as well -eating ok Conversation with caregiver: MIGEL Sewell. -long standing mistrust/dislike of doctors and hospitals, has avoided. Hasn't like to take medications but states that since the start of the year he has been taking them better -she sets up pillbox for patient, still misses at times -memory problems the last 2 or more years though long winder tender hasn't been a good communicator. It has gotten worse. She attributes it to ETOH. -drinking 6pk tallboys daily. Hasn't had anything since first coming to the hospital. Hasn't asked. Hopes he's forgotten it though in the past he has had no interest in quitting. Walks to the driv[place]rough around the corner -smoking 1ppd -lives alone, Melodie is his primary support. She has POA paperwork at home. He does have 3 children who are estranged, several siblings/brothers -notes that older brother also has dementia, pt mother had dementia -worries about worsening depression being in the hospital. More irritable in the hospital -appetite hasn't been great, was worse last few weeks leading up to initial hospitalization. Has been eating better here in the hospital -hasn't been working on his cars, doesn't do much during the day, doesn't have any friends -reports chronic pain in his shoulder that he refused to do anything for. Chronic LBP. Taking tylenol at times but not regularly Advance Care Planning Healthcare Power of Rehabilitation Services Director: Yes, Melodie Tavarez Code Status: Full Code Allergies[1] Current Medications[2] Medical History[3] Surgical History[4] Social History Tobacco Use Smoking status: Every Day Current packs/day: 0.25 Average packs/day: 0.3 packs/day for 53.0 years (13.3 ttl pk-yrs) Types: Cigarettes Start date: 1972 Smokeless tobacco: Never Tobacco comments: 8 cig daily Substance Use Topics Alcohol use: Yes Alcohol/week: 7.0 standard drinks of alcohol Types: 7 Cans of beer per week Comment: once beer daily Social History Social History Narrative Not on file Family History Family History[5] Family Status Relation Name Status Father cancer Sister Alive Mother cancer Brother Alive PGM MGM MGF PGF No partnership data on file Review of Systems Constitutional: Positive for activity change. Negative for appetite change, chills, fatigue and fever. HENT: Positive for hearing loss. Negative for rhinorrhea. Respiratory: Positive for shortness of breath (pt denies today) and wheezing. Negative for cough. Cardiovascular: Negative for chest pain, palpitations and leg swelling. Gastrointestinal: Negative for abdominal pain, blood in stool, constipation and diarrhea. Genitourinary: Negative for dysuria and frequency. Musculoskeletal: Positive for arthralgias, back pain and gait problem. Skin: Positive for rash. Neurological: Positive for weakness. Negative for dizziness, numbness and headaches. Psychiatric/Behavioral: Positive for confusion and dysphoric mood. Negative for hallucinations and sleep disturbance. The patient is not nervous/anxious. Functional Status Prior to Admission: (I: Independent, A: Assisted, D: Dependent) ADLs I A D Notes Bathing [x] [] [] Difficult with right shoulder pain Dressing [x] [] [] Toileting [x] [] [] Transfers [x] [] [] Feeding [x] [] [] Ambulation [] [] [] Assistive devices: none IADLs I A D Telephone [x] [] [] Transportation [] [] [x] Shopping [] [] [x] Meal prep [] [x] [] Melodie does some shopping, had been bringing him over meals Housework [] [x] [] Medications [] [x] [] Melodie sets up pillbox Finances [] [] [] Objective: BP 109/70 (BP Location: Right arm, Patient Position: Sitting) Pulse 78 Temp 37.1 C (98.8 F) (Temporal) Resp 18 Ht 5' 8" (1.727 m) Wt 169 lb 6.4 oz (76.8 kg) SpO2 95% BMI 25.76 kg/m Intake/Output Summary (Last 24 hours) at 06/09/2025 1003 Last data filed at 06/09/2025 0900 Gross per 24 hour Intake 837 ml Output -- Net 837 ml Wt Readings from Last 3 Encounters: 06/09/25 169 lb 6.4 oz (76.8 kg) 06/02/25 170 lb 3.2 oz (77.2 kg) 11/02/24 194 lb 0.1 oz (88 kg) Physical Exam Constitutional: General: He is not in acute distress. Comments: Older male, sitting at bedside, able to lie back in bed without assistance Generalized maculopapular rash over face, back, chest, arms and legs Slightly disheveled HENT: Mouth/Throat: Mouth: Mucous membranes are moist. Pharynx: Oropharynx is clear. Eyes: General: Right eye: No discharge. Left eye: No discharge. Conjunctiva/sclera: Conjunctivae normal. Cardiovascular: Rate and Rhythm: Normal rate and regular rhythm. Heart sounds: Normal heart sounds. No murmur heard. Pulmonary: Effort: Pulmonary effort is normal. No respiratory distress. Breath sounds: Wheezing present. Abdominal: General: Bowel sounds are normal. There is no distension. Palpations: Abdomen is soft. Tenderness: There is no abdominal tenderness. Hernia: A hernia is present. Musculoskeletal: General: No tenderness. Injury: right shoulder effusions, decreased ROM of right shoulder, no increased redness or tenderness over effusion. Right lower leg: No edema. Left lower leg: No edema. Lymphadenopathy: Cervical: No cervical adenopathy. Skin: General: Skin is warm and dry. Findings: Rash present. Neurological: Mental Status: He is alert. He is disoriented. Cranial Nerves: No cranial nerve deficit. Sensory: No sensory deficit (light touch bl feet). Coordination: Coordination normal. Psychiatric: Mood and Affect: Mood normal. Thought Content: Thought content normal. Comments: inattentive to interview and exam - though largely seems disinterested in participation in conversation and dismissive of education attempts regarding hospitalization and events during hospitalization Labs and Imaging: Recent Results (from the past 24 hours) POCT glucose meter Collection Time: 06/08/25 11:14 AM Result Value Ref Range Glucose 134 (H) 70 - 100 mg/dL ECG 12 lead Collection Time: 06/08/25 11:42 AM Result Value Ref Range Heart Rate 71 bpm QRSD Interval 189 ms QT Interval 498 ms QTC Interval 540 ms P [place] 0 degrees QRS [place] -81 degrees T Wave [place] 89 degrees VA Interval 0 ms POCT glucose meter Collection Time: 06/08/25 4:25 PM Result Value Ref Range Glucose 117 (H) 70 - 100 mg/dL POCT glucose meter Collection Time: 06/08/25 8:52 PM Result Value Ref Range Glucose 256 (H) 70 - 100 mg/dL CBC auto differential Collection Time: 06/09/25 4:34 AM Result Value Ref Range Auto WBC 7.4 3.6 - 10.7 10*3/uL RBC 4.13 (L) 4.40 - 5.90 10*6/uL Hemoglobin 12.4 (L) 13.0 - 18.0 g/dL Hematocrit 35.7 (L) 40.0 - 52.0 % MCV 86.4 77.0 - 99.0 fL MCH 30.0 26.0 - 34.0 pg MCHC 34.7 30.5 - 36.0 % RDW 13.4 11.5 - 15.0 % Platelets 135 (L) 140 - 440 10*3/uL MPV 9.9 9.0 - 12.7 fL nRBC 0.0 0.0 - 2.0 /100 WBCs IPF 3 Comprehensive metabolic panel Collection Time: 06/09/25 4:34 AM Result Value Ref Range SODIUM 132 (L) 136 - 145 mmol/L POTASSIUM 3.7 3.5 - 5.1 mmol/L CHLORIDE 95 (L) 98 - 107 mmol/L CARBON DIOXIDE 26 23 - 31 mmol/L ANION GAP 11 3 - 13 mmol/L UREA NITROGEN 29 (H) 9 - 23 mg/dL CREATININE 0.82 0.72 - 1.25 mg/dL GLUCOSE 98 82 - 115 mg/dL CALCIUM 8.7 (L) 8.8 - 10.0 mg/dL AST (SGOT) 16 <34 U/L ALT 42 (H) <40 U/L ALKALINE PHOSPHATASE 88 40 - 150 U/L ALBUMIN 2.8 (L) 3.4 - 4.8 g/dL BILIRUBIN, TOTAL 0.4 <1.2 mg/dL TOTAL PROTEIN 6.0 (L) 6.4 - 8.3 g/dL eGFR >90.0 >60.0 mL/min/1.73m*2 Man Differential Collection Time: 06/09/25 4:34 AM Result Value Ref Range Neutrophils % 77 38 - 82 % Bands % 2 (H) <=0 % Lymphocytes % 10 (L) 15 - 45 % Monocytes % 5 5 - 13 % Eosinophils % 3 0 - 6 % Basophils % 1 0 - 2 % Myelocytes % 2 (H) <=0 % Absolute Neutrophil Count 5.8 1.8 - 7.0 10*3/uL Segs Absolute 5.8 1.8 - 7.5 10*3/uL Bands Absolute 0.1 (H) <=0.0 10*3/uL Lymphocytes Absolute 0.7 (L) 1.0 - 4.3 10*3/uL Monocytes Absolute 0.4 0.0 - 0.9 10*3/uL Eosinophils Absolute 0.2 0.0 - 0.5 10*3/uL Basophils Absolute 0.1 0.0 - 0.2 10*3/uL Myelocytes Absolute 0.1 (H) <=0.0 10*3/uL Poikilocytes Slight (A) (none) Dingess Cells Slight (A) (none) WBC Morphology Normal PLT Morphology Normal Total Counted 100 Neutrophils Manual 77 Lymphocytes Manual 10 Monocytes Manual 5 Eosinophils Manual 3 (H) 0 - 1 Basophils Manual 1 Bands Manual 2 Myelocytes Manual 2 Differential Method Manual differential performed POCT glucose meter Collection Time: 06/09/25 8:02 AM Result Value Ref Range Glucose 82 70 - 100 mg/dL Lab Results Component Value Date TSH 0.57 05/20/2025 No components found for: "B12" >500 No results found for: "VITD25" Reviewed: medication list, allergies, family history, social history, notes from last several encounters, lab results, imaging Follow-up: prn (Please note: Portions of this note were completed with a voice recognition program. Efforts were made to edit the dictations but occasionally words and phrases are mis-transcribed.) Ashley Crawford, 06/09/25 10:03 AM [1] No Known Allergies [2] Current Facility-Administered Medications: acetaminophen (Tylenol) tablet 650 mg, 650 mg, Oral, q6h PRN OR acetaminophen (Tylenol) suppository 650 mg, 650 mg, Rectal, q6h PRN, Reji Leon MD alteplase (Cathflo Activase) 2 mg in sterile water 2 mL injection, 2 mg, IntraCATHeter, PRN, Ivan Connolly MD, 2 mg at 06/05/25120 ammonium lactate (Lac-Hydrin) 12 % lotion, , Topical, PRN, Mayda Shankar MD apixaban (Eliquis) tablet 5 mg, 5 mg, Oral, BID, Reji Leon MD, 5 mg at 06/08/252055 cetirizine (ZyrTEC) tablet 10 mg, 10 mg, Oral, Daily, Zita Rene MD, 10 mg at 06/08/25 0850 chlorhexidine (Hibiclens) 4 % solution, , Topical, Daily, Reji Leon MD, Given at 06/08/25 1251 collagenase 250 UNIT/GM ointment, , Topical, Daily, Reji Leon MD, Given at 06/08/25 0854 dapagliflozin (Farxiga) tablet 10 mg, 10 mg, Oral, Daily, Reji Leon MD, 10 mg at 06/08/25 0850 dextromethorphan-guaiFENesin (Mucinex DM) 30-600 MG per 12 hr tablet 1 tablet, 1 tablet, Oral, BID, Reji Leon MD, 1 tablet at 06/08/25 2056 dextrose 5 % infusion, 100 mL/hr, IntraVENous, PRN, Reji Leon MD dextrose 50 % solution 12.5 g, 12.5 g, IntraVENous, PRN, Reji Leon MD diphenhydrAMINE (BENADryl) injection 25 mg, 25 mg, IntraVENous, Daily, Mayda Shankar MD, 25 mg at 06/09/25 0430 folic acid (Folvite) tablet 1 mg, 1 mg, Oral, Daily, Reji Leon MD, 1 mg at 06/08/25 0850 glucagon (human recombinant) injection 1 mg, 1 mg, IntraMUSCular, PRN, Reji Leon MD glucose oral gel 15 g, 15 g, Oral, PRN, Reji Leon MD Insulin Lispro (Humalog) injection 0-12 Units, 0-12 Units, SubCUTAneous, TID WC AND Insulin Lispro (Humalog) injection 0-12 Units, 0-12 Units, SubCUTAneous, Nightly, Reji Leon MD ipratropium-albuterol (Duo-Neb) 0.5-2.5 mg/3 mL nebulizer solution 3 mL, 3 mL, Nebulization, 4x daily PRN, Reji Leon MD ipratropium-albuterol (Duo-Neb) 0.5-2.5 mg/3 mL nebulizer solution 3 mL, 3 mL, Nebulization, q4h, Mayda Shankar MD, 3 mL at 06/09/25 0826 losartan (Cozaar) tablet 25 mg, 25 mg, Oral, Daily, Mayda Shankar MD, 25 mg at 06/08/2550 metoprolol succinate XL (Toprol-XL) 24 hr tablet 75 mg, 75 mg, Oral, BID, Mayda Shankar MD, 75 mg at 06/08/252055 mometasone-formoterol (Dulera 200) 200-5 MCG/ACT inhaler 2 puff, 2 puff, Inhalation, BID, Reji Leon MD, 2 puff at 06/08/252056 montelukast (Singulair) tablet 10 mg, 10 mg, Oral, Daily, Reji Leon MD, 10 mg at 06/08/25849 nicotine (Nicoderm, Step 2) 14 MG/24HR patch 1 patch, 1 patch, TransDERmal, Daily, Reji Leon MD, 1 patch at 06/08/25850 pantoprazole (ProtoNix) EC tablet 40 mg, 40 mg, Oral, Nightly, 40 mg at 06/08/252055 OR pantoprazole (ProtoNix) 40 mg in sodium chloride (PF) 0.9 % 10 mL injection, 40 mg, IntraVENous, Nightly, Reji Leon MD, 40 mg at 06/06/252126 polyethylene glycol (PEG) 3350 (Miralax) packet 17 g, 17 g, Oral, Daily PRN, Reji Leon MD [COMPLETED] predniSONE (Deltasone) tablet 25 mg, 25 mg, Oral, BID, 25 mg at 06/07/252138 FOLLOWED BY predniSONE (Deltasone) tablet 20 mg, 20 mg, Oral, Daily, Mayda Shankar MD promethazine (Phenergan) tablet 25 mg, 25 mg, Oral, q6h PRN OR promethazine (Phenergan) suppository 25 mg, 25 mg, Rectal, q12h PRN OR promethazine (Phenergan) injection 25 mg, 25 mg, IntraMUSCular, q4h PRN, Reji Leon MD rosuvastatin (Crestor) tablet 40 mg, 40 mg, Oral, Daily, Mayda Shankar MD [Held by provider] sertraline (Zoloft) tablet 100 mg, 100 mg, Oral, Daily, Reji Leon MD sodium chloride 0.9 % infusion, 5-250 mL/hr, IntraVENous, PRN, Reji Leon MD sodium chloride 0.9% (NS) flush 5-40 mL, 5-40 mL, IntraVENous, q12h, Reji Leon MD, 10 mL at 06/09/25 0430 sodium chloride 0.9% (NS) flush 5-40 mL, 5-40 mL, IntraVENous, PRN, Reji Leon MD sodium chloride 3 % hypertonic nebulizer solution 4 mL, 4 mL, Nebulization, BID, Reji Leon MD, 4 mL at 06/09/25 0834 spironolactone (Aldactone) tablet 25 mg, 25 mg, Oral, Daily, Mayda Shankar MD, 25 mg at 06/08/25 1247 thiamine (Vitamin B1) tablet 100 mg, 100 mg, Oral, Daily, Reji Leon MD, 100 mg at 06/08/25 0850 [Held by provider] torsemide (Demadex) tablet 30 mg, 30 mg, Oral, BID, Reji Leon MD torsemide (Demadex) tablet 30 mg, 30 mg, Oral, Daily, Mayda Shankar MD vancomycin (Vancocin) 1,000 mg in sodium chloride 0.9 % 250 mL IVPB (Vial Mate), 1,000 mg, IntraVENous, q24h, Reji Leon MD, 1,000 mg at 06/09/25 0514 [3] Past Medical History: Diagnosis Date Alcohol consumption heavy 09/10/2015 stopped 3w ago Asthma ([facility]) Atrial fibrillation ([facility]) CHF (congestive heart failure) ([facility]) 01/31/2016 COPD (chronic obstructive pulmonary disease) ([facility]) 09/10/2015 Cor, pulmonale, acute (HCC) Deep venous thrombosis ([facility]) 02/2016 Depression Hx of blood clots Obesity 09/10/2015 DELORES (obstructive sleep apnea) Pulmonary embolus ([facility]) 6 16 Raynaud phenomenon 09/10/2015 Smoker 09/10/2015 [4] Past Surgical History: Procedure Laterality Date ABDOMINAL SURGERY BRONCHOSCOPY 02/25/2020 BRONCHOSCOPY (HISTORICAL) 02/25/2020 CARDIAC ELECTROPHYSIOLOGY PROCEDURE N/A 05/25/2025 Performed by Karthik Mendoza MD at [facility] Cardiac Cath/EP Lab COLONOSCOPY 10/27/[address] CHEST ANGIOGRAM W AND/OR WO IV CONTRAST 07/12/2022 CT CHEST ANGIOGRAM W AND/OR WO IV CONTRAST 07/12/[address] IMAGING FINGER AMPUTATION Left HERNIA REPAIR NOSE SURGERY PACEMAKER (HISTORICAL) [5] Family History Problem Relation Name Age of Onset Asthma Father Congenital Anomaly Father Cancer Father Asthma Sister Heart disease Mother Heart disease Brother Pacemaker Mother Congenital Anomaly Sister Cancer Mother Diabetes Mother Associated Order(s): IP CONSULT TO INFECTIOUS DISEASES Images from the original note were not included. [facility] - Infectious Diseases Attending Consult Note Reason for Consult: Sepsis, acute hypoxic respiratory failure, recent MRSA bacteremia and Strep pneumoniae pneumonia. History of Present Illness: 70 y/o male was admitted on 06/04/25 from a nursing facility for worsening SOB, wheezing, cough, headache for a day or two; denied fever, chest pain, abdominal pain, vomiting or diarrhea; in ED on presentation, he was tachycardic P 97, tachypneic R 29, hypoxic Pox 93%, in early AM today he was hypotensive BP 86/55; CXR showed cardiomegaly, interstitial coarsening, no focal consolidation, pleural effusion or pneumothorax; labs showed hyponatremia Na 131, transaminitis ALT 170, AST 134, alb 2.9, elevated BNP, resp pcr detected rhinovirus. He was seen, found him laying on bed, sleeping, wake up with vocal response, c/o SOB, weakness, feeling sick, using 6L O2 in [place], he appeared in respiratory distress and ill. He was recently hospitalized from 05/20-06/02/25 at [facility] with septic shock, MRSA bacteremia and Strep pneumoniae pneumonia, he was extubated on 05/22, he underwent ICD lead extraction/replacement 05/26, PICC was placed 06/02, [facility] van[facility] till 07/05/25. He has h/o COPD, HFrEF (EF 21% in 11/2023), ICD, A-fib on eliquis, Hx of DVT and PE, Hx of ETOH. He was examined; notes, labs, imaging were reviewed; treatment plan was discussed; clinical informations were documented in electronic record. Past Medical History: Medical History[1] Past Surgical History: Surgical History[2] Current Medications: Current Medications[3] Allergies: Allergies[4] Social History: Social History Socioeconomic History Marital status: Spouse name: Not on file Number of children: Not on file Years of education: Not on file Highest education level: Not on file Occupational History Not on file Tobacco Use Smoking status: Former Current packs/day: 0.25 Average packs/day: 0.3 packs/day for 53.0 years (13.3 ttl pk-yrs) Types: Cigarettes Start date: 1972 Smokeless tobacco: Never Tobacco comments: 8 cig daily Substance and Sexual Activity Alcohol use: Yes Alcohol/week: 7.0 standard drinks of alcohol Types: 7 Cans of beer per week Comment: once beer daily Drug use: Never Sexual activity: Not on file Other Topics Concern Not on file Social History Narrative Not on file Social Drivers of Health Financial Resource Strain: Low Risk (06/04/2025) Overall Financial Resource Strain (CARDIA) Difficulty of Paying Living Expenses: Not very hard Food Insecurity: Patient Declined (06/04/2025) Hunger Vital Sign Worried About Running Out of Food in the Last Year: Patient declined Ran Out of Food in the Last Year: Patient declined Transportation Needs: No Transportation Needs (06/04/2025) PRAPARE - Transportation Lack of Transportation (Medical): No Lack of Transportation (Non-Medical): No Physical Activity: Inactive (06/04/2025) Exercise Vital Sign Days of Exercise per Week: 0 days Minutes of Exercise per Session: 0 min Stress: No Stress Concern Present (06/04/2025) Citizen Of [place] of Occupational Health - Occupational Stress Questionnaire Feeling of Stress : Not at all Social Connections: Socially Isolated (06/04/2025) Social Connection and Isolation Panel [NHANES] Frequency of Communication with Friends and Family: Never Frequency of Social Gatherings with Friends and Family: Never Attends Zoroastrian Services: Never Active Member of Clubs or Organizations: No Attends Club or Organization Meetings: Never Marital Status: Intimate Partner Violence: Not At Risk (06/04/2025) Humiliation, Afraid, Rape, and Kick questionnaire Fear of Current or Ex-Partner: No Emotionally Abused: No Physically Abused: No Sexually Abused: No Housing Stability: Low Risk (06/04/2025) Housing Stability Vital Sign Unable to Pay for Housing in the Last Year: No Number of Times Moved in the Last Year: 0 Homeless in the Last Year: No Family History: Family History[5] Review of Systems: Review of Systems Constitutional: Negative for chills and fever. HENT: Negative for ear pain and sore throat. Eyes: Negative for visual disturbance. Respiratory: Positive for cough and shortness of breath. Cardiovascular: Negative for chest pain and leg swelling. Gastrointestinal: Negative for abdominal pain, diarrhea and vomiting. Genitourinary: Negative for dysuria. Musculoskeletal: Negative for arthralgias and back pain. Skin: Negative for color change and rash. Neurological: Positive for headaches. Negative for weakness and numbness. All other systems reviewed and are negative. Vitals: Patient Vitals for the past 24 hrs: BP Temp Temp src Pulse Resp SpO2 Height Weight 06/04/25 1224 99/56 (!) 35.8 C (96.5 F) Temporal 72 20 94 % -- -- 06/04/25 0913 -- -- -- 71 18 94 % -- -- 06/04/25 0822 102/66 36.4 C (97.6 F) Temporal 72 20 92 % -- -- 06/04/25 0703 96/57 36.2 C (97.2 F) Temporal 80 22 95 % -- -- 06/04/25 0621 (!) 37.1 C (98.8 F) Tympanic 86 22 -- 1.727 m (5' 8") 77 kg (169 lb 12.1 oz) 06/04/25 0607 -- -- -- 86 -- 93 % -- -- 06/04/25 0518 (!) -- Tympanic 88 22 92 % -- 77 kg (169 lb 12.1 oz) 06/04/25 0516 -- -- -- -- -- -- -- 77 kg (169 lb 12.1 oz) 06/04/25 0453 (!) 86/57 37.1 C (98.7 F) Temporal 88 22 92 % -- -- 06/04/25 0401 103/61 -- -- (!) 104 21 100 % -- -- 06/04/25 0211 110/79 -- -- (!) 103 (!) 28 96 % -- -- 06/04/25 0024 -- -- -- 94 (!) 28 95 % -- -- 06/04/25 0002 -- -- -- -- -- (!) 93 % -- -- 06/03/25 2358 121/66 37.2 C (98.9 F) Oral 97 (!) 29 -- -- -- Physical Exam: Physical Exam Vitals and nursing note reviewed. Constitutional: Appearance: Normal appearance. He is well-developed and normal weight. He is not toxic-appearing. Comments: Patient appears uncomfortable because of breathing problem. HENT: Head: Normocephalic and atraumatic. Right Ear: External ear normal. Left Ear: External ear normal. Nose: Nose normal. Mouth/Throat: Mouth: Mucous membranes are moist. Pharynx: Oropharynx is clear. Eyes: Extraocular Movements: Extraocular movements intact. Conjunctiva/sclera: Conjunctivae normal. Pupils: Pupils are equal, round, and reactive to light. Cardiovascular: Rate and Rhythm: Normal rate and regular rhythm. Heart sounds: Normal heart sounds. No murmur heard. Pulmonary: Effort: Respiratory distress present. Breath sounds: Wheezing and rhonchi present. Comments: The patient is tachypneic. He has diffuse coarse wheezes and rhonchi. He is speaking in short sentences and appears to be mentating well. Abdominal: General: Bowel sounds are normal. Palpations: Abdomen is soft. Tenderness: There is no abdominal tenderness. There is no guarding or rebound. Musculoskeletal: General: No swelling or tenderness. Normal range of motion. Cervical back: Normal range of motion and neck supple. Right lower leg: No edema. Left lower leg: No edema. Skin: General: Skin is warm and dry. Neurological: General: No focal deficit present. Mental Status: He is alert and oriented to person, place, and time. Cranial Nerves: Cranial nerves 2-12 are intact. Sensory: Sensation is intact. Motor: Motor function is intact. Coordination: Coordination is intact. Psychiatric: Mood and Affect: Mood normal. Labs: Recent Labs 06/01/25 1647 06/02/25 0014 06/04/25 0020 06/04/25 0201 NA 130* 131* 131* -- K 3.9 4.2 4.5 -- CL 92* 94* 94* -- CO2 30 28 24 -- BUN 25* 24* 24* -- CREATININE 0.85 0.91 1.10 -- GLUCOSE 119* 98 136* -- CALCIUM 8.6* 8.6* 9.0 -- PROT -- 6.3* 7.1 -- BILITOT -- 0.6 0.6 -- ALKPHOS -- 114 114 -- AST -- 247* 134* -- ALT -- 187* 170* -- PROCAL -- -- -- 0.44* Recent Labs 06/02/25 0014 06/04/25 0020 06/04/25 0024 06/04/25 0211 WBC 9.1 10.7 -- -- HGB 10.9* 12.1* 13.1* 13.0* HCT 31.7* 34.9* -- -- PLT 362 294 -- -- LYMPHOPCT 9.8* 4* -- -- MONOPCT 12.0 2* -- -- BASOPCT 1.2 1 -- -- NEUTROABS 6.7 -- -- -- Procal 0.44 0.51 Micro: No results for input(s): "COVID19" in the last 72 hours. Collected Updated Procedure Result Status 06/04/2025 0842 06/04/20251201 Blood culture Site #1 - Suspected Infection [[id number]] Blood, Venous Preliminary result Component Value Blood Culture Blood culture incubation started P 06/04/2025 0842 06/04/2025 120 Blood culture Site #2 - Suspected Infection [[id number]] Blood, Venous Preliminary result Component Value Blood Culture Blood culture incubation started P 06/04/2025 0510 06/04/2025 0855 Respiratory Pathogens Panel by PCR [[id number]] (Abnormal) Swab from Nasopharynx Final result Component Value SARS-CoV-2 Not Detected Adenovirus Not Detected Coronavirus HKU1 Not Detected Coronavirus NL63 Not Detected Coronavirus 229E Not Detected Coronavirus OC43 Not Detected Human Metapneumovirus Not Detected Human Rhinovirus/Enterovirus Detected Abnormal Influenza A Not Detected Influenza B Not Detected Parainfluenza 1 Not Detected Parainfluenza 2 Not Detected Parainfluenza 3 Not Detected Parainfluenza 4 Not Detected Respiratory Syncytial Virus Not Detected Bordetella pertussis Not Detected Bordetella parapertussis Not Detected Chlamydia pneumoniae Not Detected Mycoplasma pneumoniae Not Detected 06/04/2025 0021 06/04/2025 0113 COVID-19, Flu A/B, and RSV Combo [[id number]] Swab from Nasopharynx Final result Component Value SARS-CoV-2 Not Detected Respiratory Syncytial Virus Not Detected Influenza A Not Detected Influenza B Not Detected 05/24/2025 0540 05/29/2025 09 Blood culture Site #1 - Assess for effectiveness of treatment [[id number]] Blood, Venous Final result Component Value Blood Culture No growth at 5 days 05/24/2025 0540 05/29/2025 09 Blood culture Site #2 - Assess for effectiveness of treatment [[id number]] Blood, Venous Final result Component Value Blood Culture No growth at 5 days 05/22/2025 1246 05/25/2025 [facility] Blood culture Site #1 - Suspected Infection [[id number]] (Abnormal) Blood, Venous Final result Component Value Blood Culture Staphylococcus aureus Panic ID consult required per med staff policy dated 2021. For identification and/or sensitivity, refer to culture collected on: 05/20/2025 at 2220 ([id number]) This is an edited result. Previous organism was Gram-positive cocci on 05/23/2025 at 0629 EDT. PBP2A Positive 05/22/2025 1246 05/25/2025 [facility] Blood culture Site #2 - Suspected Infection [[id number]] (Abnormal) Blood, Venous Final result Component Value Blood Culture Staphylococcus aureus Panic ID consult required per med staff policy dated 2021. For identification and/or sensitivity, refer to culture collected on: 05/20/2025 at 2220 ([id number]) This is an edited result. Previous organism was Gram-positive cocci on 05/23/2025 at 1133 EDT. PBP2A Positive 05/21/2025 0320 05/25/2025 1129 Respiratory culture and Stain [[id number]] (Abnormal) Sputum Final result Component Value Respiratory culture Rare respiratory elsa present. Few Streptococcus pneumoniae Abnormal Gram Stain Result Moderate Ciliated epithelial cells Abnormal No polymorphonuclear leukocytes seen Abnormal Many Gram positive cocci in pairs and chains Abnormal 05/21/2025 0320 05/21/2025 0926 Pneumonia PCR Panel [[id number]] Sputum Final result Component Value Staphylococcus aureus Not Detected Streptococcus agalactiae Not Detected Streptococcus pneumoniae Not Detected Streptococcus pyogenes Not Detected Haemophilus influenzae Not Detected Moraxella catarrhalis Not Detected Acinetobacter baumannii complex Not Detected Enterobacter cloacae complex Not Detected Escherichia coli Not Detected Klebsiella (Enterobacter) aerogenes Not Detected Klebsiella oxytoca Not Detected Klebsiella pneumoniae Not Detected Proteus spp Not Detected Pseudomonas aeruginosa Not Detected Serratia marcescens Not Detected Chlamydia pneumoniae Not Detected Legionella pneumophila Not Detected Mycoplasma pneumoniae Not Detected Adenovirus Not Detected Coronavirus Not Detected Human Metapneumovirus Not Detected Human Rhinovirus/Enterovirus Not Detected Influenza A Not Detected Influenza B Not Detected Parainfluenza virus Not Detected Respiratory Syncytial Virus Not Detected 05/20/2025 2347 05/21/2025 0201 Legionella and Streptococcus Urine Antigen [[id number]] Urine, Clean Catch Final result Component Value No component results 05/20/2025 2347 05/21/2025 0434 Legionella and Streptococcus Urine Antigen [[id number]] (Abnormal) Urine, Clean Catch Final result Component Value No component results 05/20/2025 2347 05/21/2025 0434 Legionella and Streptococcus Urine Antigen [[id number]] (Abnormal) Urine, Clean Catch Final result Component Value Legionella pneumophila Ag Not Detected Streptococcus pneumoniae Ag Detected Abnormal 05/20/2025 2232 05/20/2025 2316 SARS-CoV-2, Flu A/B, and RSV Combo [[id number]] Swab from Nasopharynx Final result Component Value SARS-CoV-2 Not Detected Respiratory Syncytial Virus Not Detected Influenza A Not Detected Influenza B Not Detected 05/20/2025 2232 05/21/2025 0636 Respiratory Pathogens Panel by PCR [[id number]] Swab from Nasopharynx Final result Component Value SARS-CoV-2 Not Detected Adenovirus Not Detected Coronavirus HKU1 Not Detected Coronavirus NL63 Not Detected Coronavirus 229E Not Detected Coronavirus OC43 Not Detected Human Metapneumovirus Not Detected Human Rhinovirus/Enterovirus Not Detected Influenza A Not Detected Influenza B Not Detected Parainfluenza 1 Not Detected Parainfluenza 2 Not Detected Parainfluenza 3 Not Detected Parainfluenza 4 Not Detected Respiratory Syncytial Virus Not Detected Bordetella pertussis Not Detected Bordetella parapertussis Not Detected Chlamydia pneumoniae Not Detected Mycoplasma pneumoniae Not Detected 05/20/2025221905/23/2025 0727 Blood culture Site #1 - Suspected Infection [[id number]] (Abnormal) Blood, Venous Final result Component Value Blood Culture Staphylococcus aureus Panic Methicillin-resistant Staphylococcus aureus (MRSA) ID consult required per med staff policy dated 2021. This is an edited result. Previous organism was Gram-positive cocci on 05/21/2025 at 1345 EDT. 05/20/2025221905/23/2025 0727 Blood culture Site #2 - Suspected Infection [[id number]] (Abnormal) Blood, Venous Final result Component Value Blood Culture Staphylococcus aureus Panic ID consult required per med staff policy dated 2021. For identification and/or sensitivity, refer to culture collected on: 05/20/2025 at 2220 ([id number]). This is an edited result. Previous organism was Gram-positive cocci on 05/21/2025 at 1345 EDT. PBP2A Positive 05/20/2025221905/21/2025 1345 Blood Culture Identification - Anaerobic [[id number]] (Abnormal) Blood, Venous Final result Component Value Staphylococcus aureus Detected Abnormal mecA/C and MREJ (MRSA) Detected Abnormal Lines: Rt arm PICC (06/02) Radiography/Echo/Other: CT chest angiogram w and/or wo IV contrast [[id number]] Collected: 06/04/25 0325 Order Status: Completed Updated: 06/04/25 034 Narrative: Patient Name: KRYSTINA MARKHAM : 1955 Exam Date/Time: 06/04/2025 02:20 Procedure: CT CHEST ANGIOGRAM W AND/OR WO IV CONTRAST Ordering Provider: STAFFORD TARAS Reason For Exam: Pulmonary embolism (PE) suspected, positive D-dimer EXAMINATION: CTA of the chest with intravenous contrast, pulmonary embolism protocol. EXAM DATE & TIME: 06/04/2025 2:20 AM EDT INDICATION: Pulmonary embolism (PE) suspected, positive D-dimer ADDITIONAL INFORMATION: 70-year-old male with clinical suspicion for pulmonary embolism presents for evaluation COMPARISON: CT chest on pelvis dated 05/20/2025 LIMITATIONS: As below TECHNIQUE: CT angiogram of the chest was performed with intravenous contrast. Thin isotropic axial imaging was obtained from above the lung apices through the level of the adrenal glands during dynamic infusion of intravenous contrast for evaluation of the vessels. Multiplanar and 3-D maximum intensity projection reformulations were created from the raw CT data with independent workstation software by the radiologist. These were interpreted in conjunction with the axial images to render the findings listed below. Before infusion of intravenous contrast, radiology personnel investigated the possibility of an allergic history and any history of reaction to iodinated contrast material. Dose reduction was employed with automated exposure control. FINDINGS: Quality Assurance Tech image: Unremarkable. Exam Quality: Overall exam quality is suboptimal Pulmonary arterial enhancement is suboptimal, the breath-hold is adequate and there are some artifacts impacting image quality. Pulmonary Arteries: There are no filling defects within the pulmonary arterial system to suggest pulmonary embolus. There is prominence of the main pulmonary arteries, which can be seen in the setting of pulmonary arterial hypertension. Cardiovascular: The heart is enlarged. Atherosclerotic vascular calcifications are present in the aortic arch and coronary arteries. Mediastinum/pericardium: Unremarkable. Thyroid: Unremarkable. Tracheobronchial tree: Debris is present in the lower lobe bronchioles. Pleura: No pleural effusion or pneumothorax. Lungs: Moderate to severe centrilobular and paraseptal emphysema is seen. There is also dependent and bibasilar scarring/atelectasis. Persistent, albeit improved consolidation near the posterior left lung base. Nodules: No nodules are present that require follow up. Lymph nodes: No emerging adenopathy. Included images of the upper abdomen: Unremarkable. Visualized musculoskeletal structures: Chronic compression fractures of the T6, T7, T8, T9, T12, L1 and L2 vertebral bodies are seen, and appear similar compared to the prior study. Multiple posterior bilateral rib deformities are also noted. Impression: 1. Negative for acute pulmonary embolus. 2. The RV/LV ratio is <1. This is considered normal*. 3. Persistent, albeit improved consolidation near the posterior left lung base. 4. Additional chronic findings as above. *Reference: Campos Nayak., Rik Wilson, Letty Membreno., Dimitris Ellis., & Mai, Rgegie Nash. (2006). Can CT pulmonary angiography allow assessment of severity and prognosis in patients presenting with pulmonary embolism? What the radiologist needs to know. Radiographics, 26(1), 23-39. Notes: The short axis of the right ventricle is measured at the level of the tricuspid valve from inner wall to inner wall at its widest point. The short axis of the left ventricle is measured at the level of the mitral valve from inner wall to inner wall at its widest point. Note that the short axes of the right ventricle and left ventricle may be located at different axial CT levels. RV/LV diameter ratio <1: normal RV/LV diameter ratio >1: mildly abnormal RV/LV diameter ratio >1.5: severely abnormal Report Dictated on Electronically Signed By: Carmine Caraballo MD Electronically Signed Date/Time: 06/04/2025 3:42 AM EDT XR chest 1 view [[id number]] Collected: 06/04/25132 Order Status: Completed Updated: 06/04/25136 Narrative: [facility] 1955 [id number] Exam Date/Time: 06/04/2025 00:06 Procedure: XR CHEST 1 VIEW Ordering Provider: STAFFORD TARAS Reason For Exam: DYSPNEA EXAMINATION: XR chest AP. EXAM DATE & TIME: 06/04/2025 12:06 AM EDT INDICATION: DYSPNEA ADDITIONAL INFORMATION: 70-year-old male with dyspnea presents for evaluation COMPARISON: Chest x-rays dated 06/02/2025, 05/26/2025 and 05/23/2025 TECHNIQUE: AP view of the chest was obtained. FINDINGS: Lines/support devices: Cardiac leads project over the chest, somewhat limiting evaluation. Right arm PICC is noted with its distal tip near the SVC. This is looped in the right axillary region (only partially imaged). Cardiomediastinal silhouette: The heart is borderline enlarged. Lungs/pleura: Interstitial coarsening is present. No focal consolidation, pleural effusion or pneumothorax. Osseous structures: Degenerative changes of the spine and shoulders are seen. No acute osseous abnormality is demonstrated. Remote deformity of the left humeral head/neck is seen. Bones are osteopenic. Other findings: None. Impression: 1. Right arm PICC is looped in the right axillary region (only partially imaged). 2. Cardiomegaly. Report Dictated on Electronically Signed By: Carmine Caraballo MD Electronically Signed Date/Time: 06/04/2025 1:36 AM EDT XR chest 1 view [[id number]] Collected: 06/02/25 162 Order Status: Completed Updated: 06/02/251622 Narrative: Patient Name: KRYSTINA MARKHAM : 1955 Exam Date/Time: 06/02/2025 16:13 Procedure: XR CHEST 1 VIEW Ordering Provider: BERG CAMERON Reason For Exam: PICC placement PORTABLE CHEST X-RAY CLINICAL INDICATION: PICC placement A portable frontal view of the chest was obtained. COMPARISON: 05/26/2025 FINDINGS: Heart size is enlarged. Right-sided PICC line terminates near the junction of superior vena cava and right atrium. Chronic interstitial changes are noted within the lungs. No focal consolidation is seen. There is no large pleural effusion or pneumothorax. Old right rib and bilateral shoulder deformities are again noted. There are degenerative changes of the spine. Impression: Right-sided PICC line terminates in the junction of the superior vena cava and right atrium. Cardiomegaly, similar to the prior study. Chronic interstitial changes within the lungs. Report Dictated on Electronically Signed By: Charlie Carter MD Electronically Signed Date/Time: 06/02/2025 4:21 PM EDT US liver doppler [[id number]] Collected: 06/01/252351 Order Status: Completed Updated: 06/01/252358 Narrative: Patient Name: KRYSTINA MARKHAM : 1955 Exam Date/Time: 06/01/2025 21:46 Procedure: US LIVER DOPPLER Ordering Provider: WILKINSON BRYAN Reason For Exam: Increasing lfts ULTRASOUND OF ABDOMEN CLINICAL INDICATION: Elevated LFTs TECHNIQUE: Sonography of the upper abdomen. COMPARISON: January,. FINDINGS: Gallbladder without evidence of calculi. Wall thickness within normal limits. Intra-and extrahepatic bile ducts are of normal caliber. Negative sonographic Wright's sign. Liver enlarged measuring 22.6 cm in maximal dimension and has homogeneous echogenicity without focal abnormalities. Right kidney measures 11.4 x 6.8 x 6.9, and contains small cyst in the upper pole measuring 1.6 cm. Left kidney measures 11.5 x 6.6 x 6.9 cm. No significant hydronephrosis. Visualized pancreatic parenchyma grossly unremarkable. Visualized spleen parenchyma grossly unremarkable. Visualized abdominal aorta and IVC grossly unremarkable. Impression: 1. No acute findings. 2. Hepatomegaly. 3. Right renal cyst. ULTRASOUND LIVE DOPPLER CLINICAL INDICATION: Elevated LFTs TECHNIQUE: Real-time Doppler ultrasound of the liver. COMPARISON: None FINDINGS: Splenic vein: Patent, with appropriate directional blood flow. Main portal vein: Patent, with appropriate directional blood flow. Peak systolic velocity = 39.8 cm/s Left portal vein: Patent, with appropriate directional blood flow. Right portal vein: Patent, with appropriate directional blood flow. Hepatic artery: Patent, with appropriate directional blood flow. Peak systolic velocity = 73.8 cm/s. Resistive index = 0.62-0.76 Left hepatic vein: Patent, with appropriate directional blood flow. Middle hepatic vein: Patent, with appropriate directional blood flow. Right hepatic vein: Patent, with appropriate directional blood flow. IVC: Patent, with appropriate directional blood flow. IMPRESSION: 1. All interrogated blood vessels grossly patent and with appropriate directional blood flow. Report Dictated on Electronically Signed By: Alirio Gamboa MD Electronically Signed Date/Time: 06/01/2025 11:58 PM EDT 05/26/25 TTE: Interpretation Summary Show Result Comparison Left Ventricle: Left ventricle is moderately dilated. Severely reduced left ventricular systolic function. Severe global hypokinesis present. Right Ventricle: Right ventricle is severely dilated. Severely reduced systolic function. Tricuspid Valve: Moderate (2+) regurgitation. Moderately elevated RVSP. RVSP is 44 mmHg. Right Atrium: Right atrium is severely dilated. Echo Findings Left Ventricle Left ventricle is moderately dilated. Severely reduced left ventricular systolic function. Severe global hypokinesis present. Right Ventricle Right ventricle is severely dilated. Severely reduced systolic function. Right Atrium Right atrium is severely dilated. Tricuspid Valve Moderate (2+) regurgitation. Moderately elevated RVSP. RVSP is 44 mmHg. IVC/Hepatic Veins IVC diameter is dilated and decreases greater than 50% during inspiration; therefore the estimated right atrial pressure is intermediate (~8 mmHg). Pericardium Evidence of prominent epicardial fat. No pericardial effusion. Study Details Image quality: fair. Heart rate: 84 bpm. Blood pressure: 130/80 mmHg. Technical qualifiers: Technically difficult study due to low parasternal window. No contrast was given. Echo performed by Tri-[facility] cristian Camacho under direct supervision. Antimicrobials,Start/End Dates: Cefepime 06/04- Vanco 05/21- Impression: Sepsis (tachycardia, tachypnea, hypotension). Acute on chronic hypoxic respiratory failure. +Rhinovirus/Enterovirus. Recent MRSA bacteremia on vancomycin to end 07/05. Recent strep pneumoniae pneumonia. Treated. HFrEF 2/2 NICM. ICD lead extraction/replacement 05/26/25. COPD/ emphysema. On 2L home O2. Plan: Pt sick due to sepsis with acute on chronic hypoxic respiratory failure requiring 6L O2. Pt afebrile but remained hypotensive and hypoxic requiring more O2 than his base line 2L. Resp pcr detected Human Rhinovirus/Enterovirus. +hyponatremia. Check legionella ag. Check sputum cx and pneumonia pcr. Check MRSA pcr. Continue vancomycin through 07/05/25,m as scheduled by Dr. Ngo. Continue cefepime till resp work up is complete. Follow cxs. High level complexity medical decision making. Will follow. Thank you. Total time of 75 minutes on this day of encounter spent on, but not limited to review of tests, medical records , complex history , review of external medical records, paper and electronic, counseling and education (patient, family member, caregiver), ordering medications, tests, and procedures, communication with other health care professions, independent interpretation of tests, care coordination, arrangement of outpatient antimicrobial therapy, post-hospitalization therapy and follow-up, and counseling for risks, benefits, and consideration of use of antimicrobials. [1] Past Medical History: Diagnosis Date Alcohol consumption heavy 09/10/2015 stopped 3w ago Asthma (HHS/HCC) Atrial fibrillation (HCC) CHF (congestive heart failure) (HCC) 01/31/2016 COPD (chronic obstructive pulmonary disease) ([facility]) 09/10/2015 Cor, pulmonale, acute (HCC) Deep venous thrombosis (HCC) 02/2016 Depression Hx of blood clots Obesity 09/10/2015 DELORES (obstructive sleep apnea) Pulmonary embolus ([facility]) 6 16 Raynaud phenomenon 09/10/2015 Smoker 09/10/2015 [2] Past Surgical History: Procedure Laterality Date ABDOMINAL SURGERY BRONCHOSCOPY 02/25/2020 BRONCHOSCOPY (HISTORICAL) 02/25/2020 CARDIAC ELECTROPHYSIOLOGY PROCEDURE N/A 05/25/2025 Performed by Karthik Mendoza MD at [facility] Cardiac Cath/EP Lab COLONOSCOPY 10/27/[address] CHEST ANGIOGRAM W AND/OR WO IV CONTRAST 07/12/2022 CT CHEST ANGIOGRAM W AND/OR WO IV CONTRAST 07/12/2022 [facility] CT IMAGING FINGER AMPUTATION Left HERNIA REPAIR NOSE SURGERY PACEMAKER (HISTORICAL) [3] Current Facility-Administered Medications Medication Dose Route Frequency Provider Last Rate Last Admin acetaminophen (Tylenol) tablet 650 mg 650 mg Oral q6h PRN Reji Leon MD Or acetaminophen (Tylenol) suppository 650 mg 650 mg Rectal q6h PRN Reji Leon MD apixaban (Eliquis) tablet 5 mg 5 mg Oral BID Reji Leon MD 5 mg at 06/04/25 0953 cefepime (Maxipime) 2,000 mg in sodium chloride 0.9 % 50 mL IVPB Mini-Bag Plus 2,000 mg IntraVENous q8h Mayda Shankar MD 12.5 mL/hr at 06/04/25 1100 2,000 mg at 06/04/25 1100 chlorhexidine (Hibiclens) 4 % solution Topical Daily Reji Leon MD collagenase 250 UNIT/GM ointment Topical Daily Reji Leon MD Given at 06/04/25 1004 dapagliflozin (Farxiga) tablet 10 mg 10 mg Oral Daily Reji Leon MD 10 mg at 06/04/25 0953 dextromethorphan-guaiFENesin (Mucinex DM) 30-600 MG per 12 hr tablet 1 tablet 1 tablet Oral BID Reji Leon MD 1 tablet at 06/04/25 0953 dextrose 5 % infusion 100 mL/hr IntraVENous PRN Reji Leon MD dextrose 50 % solution 12.5 g 12.5 g IntraVENous PRN Reji Leon MD folic acid (Folvite) tablet 1 mg 1 mg Oral Daily Reji Leon MD 1 mg at 06/04/25 0953 [Held by provider] furosemide (Lasix) injection 40 mg 40 mg IntraVENous BID Reji Leon MD glucagon (human recombinant) injection 1 mg 1 mg IntraMUSCular PRN Reji Leon MD glucose oral gel 15 g 15 g Oral PRN Reji Leon MD ipratropium-albuterol (Duo-Neb) 0.5-2.5 mg/3 mL nebulizer solution 3 mL 3 mL Nebulization 4x daily PRN Reji Leon MD ipratropium-albuterol (Duo-Neb) 0.5-2.5 mg/3 mL nebulizer solution 3 mL 3 mL Nebulization q4h Mayda Shankar MD 3 mL at 06/04/25 1217 [Held by provider] losartan (Cozaar) tablet 25 mg 25 mg Oral Daily Reji Leon MD methylPREDNISolone sod suc (PF) (SOLU-Medrol) 40 MG injection 40 mg 40 mg IntraVENous q6h Michael Lange MD 40 mg at 06/04/25 0938 [Held by provider] metoprolol succinate XL (Toprol-XL) 24 hr tablet 75 mg 75 mg Oral BID Reji Leon MD mometasone-formoterol (Dulera 200) 200-5 MCG/ACT inhaler 2 puff 2 puff Inhalation BID Reji Leon MD 2 puff at 06/04/25 1001 montelukast (Singulair) tablet 10 mg 10 mg Oral Daily Reji Leon MD 10 mg at 06/04/25 0953 nicotine (Nicoderm, Step 2) 14 MG/24HR patch 1 patch 1 patch TransDERmal Daily Reji Leon MD pantoprazole (ProtoNix) EC tablet 40 mg 40 mg Oral Nightly Reji Leon MD Or pantoprazole (ProtoNix) 40 mg in sodium chloride (PF) 0.9 % 10 mL injection 40 mg IntraVENous Nightly Reji Leon MD polyethylene glycol (PEG) 3350 (Miralax) packet 17 g 17 g Oral Daily PRN Reji Leon MD promethazine (Phenergan) tablet 25 mg 25 mg Oral q6h PRN Reji Leon MD Or promethazine (Phenergan) suppository 25 mg 25 mg Rectal q12h PRN Reji Leon MD Or promethazine (Phenergan) injection 25 mg 25 mg IntraMUSCular q4h PRN Reji Leon MD [Held by provider] rosuvastatin (Crestor) tablet 40 mg 40 mg Oral Daily Reji Leon MD [Held by provider] sertraline (Zoloft) tablet 100 mg 100 mg Oral Daily Reji Leon MD sodium chloride 0.9 % infusion 5-250 mL/hr IntraVENous PRN Reji Leon MD sodium chloride 0.9% (NS) flush 5-40 mL 5-40 mL IntraVENous q12h Reji Leon MD 10 mL at 06/04/25 0502 sodium chloride 0.9% (NS) flush 5-40 mL 5-40 mL IntraVENous PRN Reji Leon MD sodium chloride 3 % hypertonic nebulizer solution 4 mL 4 mL Nebulization BID Reji Leon MD 4 mL at 06/04/25 0922 [Held by provider] spironolactone (Aldactone) tablet 25 mg 25 mg Oral Daily Reji Leon MD 25 mg at 06/04/25 0953 thiamine (Vitamin B1) tablet 100 mg 100 mg Oral Daily Reji Leon MD 100 mg at 06/04/25 0953 [Held by provider] torsemide (Demadex) tablet 30 mg 30 mg Oral BID Reji Leon MD vancomycin IVPB 1250 mg in 250 mL NS (premix) 1,250 mg IntraVENous q24h Reji Leon MD Stopped at 06/04/25 0628 [4] No Known Allergies [5] Family History Problem Relation Name Age of Onset Asthma Father Congenital Anomaly Father Cancer Father Asthma Sister Heart disease Mother Heart disease Brother Pacemaker Mother Congenital Anomaly Sister Cancer Mother Diabetes Mother Associated Order(s): IP CONSULT TO PULMONOLOGY Images from the original note were not included. [facility] [address] [place] [id number] Patient - Krystina Markham [facility] # - [id number] - 1955 Date of Admission - 06/03/2025 11:55 PM Date of evaluation - 06/04/2025 Room - B2-249/B2-249 A Hospital Day - 0 Consulting - Charlie Westfall MD Primary Care Physician - Toi Davis MD Active Hospital Problem List Problem List[1] Reason for Consult COPD exacerbation HPI Krystina Markham is a 70 y.o. male with past medical history significant for COPD, sleep apnea on CPAP chronic hyponatremia alcohol use pulmonary embolism brought from his halfway facility to the emergency room with complaints of shortness of breath patient was recently treated for MRSA bacteremia and sepsis/pneumonia was discharged to SNF with a PICC line for IV antibiotics patient was noted to be in significant respiratory distress yesterday, cyanotic oxygen saturation on room air was 69 percentile he was placed on supplemental oxygen, does complain of cough denies any chest pain PMHx Past Medical History Medical History[2] Past Surgical History Surgical History[3] Social History Social History Socioeconomic History Marital status: Spouse name: Not on file Number of children: Not on file Years of education: Not on file Highest education level: Not on file Occupational History Not on file Tobacco Use Smoking status: Former Current packs/day: 0.25 Average packs/day: 0.3 packs/day for 53.0 years (13.3 ttl pk-yrs) Types: Cigarettes Start date: 1972 Smokeless tobacco: Never Tobacco comments: 8 cig daily Substance and Sexual Activity Alcohol use: Yes Alcohol/week: 7.0 standard drinks of alcohol Types: 7 Cans of beer per week Comment: once beer daily Drug use: Never Sexual activity: Not on file Other Topics Concern Not on file Social History Narrative Not on file Social Drivers of Health Financial Resource Strain: Low Risk (06/04/2025) Overall Financial Resource Strain (CARDIA) Difficulty of Paying Living Expenses: Not very hard Food Insecurity: Patient Declined (06/04/2025) Hunger Vital Sign Worried About Running Out of Food in the Last Year: Patient declined Ran Out of Food in the Last Year: Patient declined Transportation Needs: No Transportation Needs (06/04/2025) PRAPARE - Transportation Lack of Transportation (Medical): No Lack of Transportation (Non-Medical): No Physical Activity: Inactive (06/04/2025) Exercise Vital Sign Days of Exercise per Week: 0 days Minutes of Exercise per Session: 0 min Stress: No Stress Concern Present (06/04/2025) Citizen Of [place] of Occupational Health - Occupational Stress Questionnaire Feeling of Stress : Not at all Social Connections: Socially Isolated (06/04/2025) Social Connection and Isolation Panel [NHANES] Frequency of Communication with Friends and Family: Never Frequency of Social Gatherings with Friends and Family: Never Attends Zoroastrian Services: Never Active Member of Clubs or Organizations: No Attends Club or Organization Meetings: Never Marital Status: Intimate Partner Violence: Not At Risk (06/04/2025) Humiliation, Afraid, Rape, and Kick questionnaire Fear of Current or Ex-Partner: No Emotionally Abused: No Physically Abused: No Sexually Abused: No Housing Stability: Low Risk (06/04/2025) Housing Stability Vital Sign Unable to Pay for Housing in the Last Year: No Number of Times Moved in the Last Year: 0 Homeless in the Last Year: No Family History Family History[4] Current Medications Scheduled Meds[5] PRN Meds[6] IV Drips/Infusions Continuous Meds[7] Home Medications Prescriptions Prior to Admission[8] Allergies Allergies[9] ROS - 10 systems General Denies any fever or chills HEENT Denies any diplopia, tinnitus or vertigo Resp See HPI Cardiac Denies any chest pain, palpitations, claudication or edema GI Denies any melena, hematochezia, hematemesis Heme Denies bruising or bleeding easily Neuro Denies any focal motor or sensory deficits Psychiatric Denies anxiety, depression, suicidal ideation Skin Denies rashes, itching, Vitals height is 5' 8" (1.727 m) and weight is 169 lb 12.1 oz (77 kg). His temporal temperature is 36.4 C (97.6 F). His blood pressure is 102/66 and his pulse is 71. His respiration is 18 and oxygen saturation is 94%. Body mass index is 25.81 kg/m . 24 Hour intake and output Intake/Output Summary (Last 24 hours) at 06/04/2025 1056 Last data filed at 06/04/2025 0621 Gross per 24 hour Intake 88.33 ml Output -- Net 88.33 ml @[id number]@ Exam Vitals: BP 102/66 (BP Location: Right arm, Patient Position: Lying) Pulse 71 Temp 36.4 C (97.6 F) (Temporal) Resp 18 Ht 5' 8" (1.727 m) Wt 169 lb 12.1 oz (77 kg) SpO2 94% BMI 25.81 kg/m Pulse Ox: SpO2 Av.2 % Min: 92 % Max: 100 % Supplemental O2: O2 Flow Rate (L/min): 5 L/min Physical Exam Vitals reviewed. Cardiovascular: Rate and Rhythm: Normal rate and regular rhythm. Pulses: Normal pulses. Heart sounds: Normal heart sounds. Pulmonary: Breath sounds: Rhonchi and rales present. Musculoskeletal: Cervical back: Normal range of motion. Neurological: Mental Status: He is alert. Psychiatric: Mood and Affect: Mood normal. Behavior: Behavior normal. Labs - Old records and notes have been reviewed in [facility] CBC Lab Results Component Value Date WBC 10.7 06/04/2025 RBC 4.05 (L) 06/04/2025 HGB 13.0 (L) 06/04/2025 HGB 12.1 (L) 06/04/2025 HCT 34.9 (L) 06/04/2025 PLT 294 06/04/2025 MCV 86.2 06/04/2025 MCH 29.9 06/04/2025 MCHC 34.7 06/04/2025 RDW 13.1 06/04/2025 LYMPHOPCT 4 (L) 06/04/2025 MONOPCT 2 (L) 06/04/2025 MYELOPCT 1 (H) 06/04/2025 BASOPCT 1 06/04/2025 BASOSABS 0.1 06/04/2025 BMP Lab Results Component Value Date NA 131 (L) 06/04/2025 K 4.5 06/04/2025 CL 94 (L) 06/04/2025 CO2 24 06/04/2025 BUN 24 (H) 06/04/2025 CREATININE 1.10 06/04/2025 GLUCOSE 136 (H) 06/04/2025 CALCIUM 9.0 06/04/2025 MG 1.6 06/04/2025 PHOS 4.2 06/04/2025 LFTS Lab Results Component Value Date ALKPHOS 114 06/04/2025 ALT 170 (H) 06/04/2025 AST 134 (H) 06/04/2025 PROT 7.1 06/04/2025 BILITOT 0.6 06/04/2025 INR Lab Results Component Value Date INR 1.2 (H) 09/12/2024 INR 1.3 (H) 08/19/2024 INR 1.1 02/17/2024 PROTIME 13.5 (H) 09/12/2024 PROTIME 14.2 (H) 08/19/2024 PROTIME 11.4 02/17/2024 PFTs Patient had a PFT done on 11 February 2020 interpreted by me FEV1/FVC ratio was reduced FEV1 was 55% predicted suggesting moderate obstructive ventilatory defect. Diffusion capacity was reduced at 54% predicted. Total lung capacity were normal at 101% predicted. RV/TLC ratio was increased suggestive of gas trapping Sleep History On CPAP at home Cultures Radiology Patient is CT angiogram of the chest done today, and there is no evidence of pulmonary embolism prominence of main pulmonary artery, moderate to severe centrilobular and paraseptal emphysema emphysema dependent atelectasis, left base consolidation slightly improved in comparison to previous CAT scan from 20 May 2025 reviewed (See actual reports for details) Assessment/ Recommendations COPD exacerbation-bronchodilators/steroi ds Acute on chronic hypoxic respiratory failure, continue auto BiPAP with supplemental oxygen monitor respiratory status Recent MRSA pneumonia/bacteremia, reinitiated on antibiotics await input from infectious disease Heart failure with reduced LV function, with pulmonary hypertension optimize fluid status, as needed diuresis monitor BMP Atrial fibrillation, continue apixaban/metoprolol History of sleep apnea, continue auto BiPAP Pulmonary hypertension most likely related to above continue current management Advance Directive: Full Code Discharge planning: TBD Case discussed with nurse and patient Questions and concerns addressed.. [1] Patient Active Problem List Diagnosis Permanent atrial fibrillation (HCC) History of rib fracture Cor, pulmonale, acute (HCC) Chronic hyponatremia Essential hypertension Compression fracture of thoracic vertebra with routine healing Osteoporosis Diverticulosis of large intestine without diverticulitis History of adenomatous polyp of colon Raynaud phenomenon Alcohol consumption heavy COPD (chronic obstructive pulmonary disease) (HCC) Venous stasis dermatitis of left lower extremity Current moderate episode of major depressive disorder without prior episode (CMS/HCC) Chest pain, unspecified type Heart failure with improved ejection fraction (HFimpEF) (HCC) Hypochloremia Tobacco abuse Presence of cardiac resynchronization therapy defibrillator (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) Alcohol abuse, continuous COPD exacerbation (HCC) Hyponatremia Closed fracture of neck of left humerus with routine healing Anemia in other chronic diseases classified elsewhere Acute exacerbation of CHF (congestive heart failure) (HCC) Medical non-compliance On continuous oral anticoagulation Right arm numbness Persistent depressive disorder DELORES (obstructive sleep apnea) Poor compliance with medication Non-pressure chronic ulcer of other part of right foot with unspecified severity (HCC) 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) Alcohol abuse with withdrawal, uncomplicated (HCC) Cervical spondylosis Paroxysmal atrial fibrillation (HCC) DELORES on CPAP Heavy tobacco smoker Cigarette smoker Personal history of smoking Pulmonary HTN (HCC) Financial difficulties Acute on chronic congestive heart failure, unspecified heart failure type (HCC) Moderate malnutrition (CMS/HCC) (HCC) Acute on chronic systolic (congestive) heart failure (HCC) Acute hypercapnic respiratory failure (HCC) Acute on chronic respiratory failure with hypoxia and hypercapnia (HCC) Prolonged QT interval EEG abnormality without seizure Requires continuous at home supplemental oxygen Acute metabolic encephalopathy Bacteremia Bloodstream infection Encounter for removal of cardiac resynchronization therapy defibrillator (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) Elevated LFTs Shortness of breath Heart failure (HCC) [2] Past Medical History: Diagnosis Date Alcohol consumption heavy 09/10/2015 stopped 3w ago Asthma (HHS/HCC) Atrial fibrillation (HCC) CHF (congestive heart failure) (HCC) 01/31/2016 COPD (chronic obstructive pulmonary disease) (HCC) 09/10/2015 Cor, pulmonale, acute (HCC) Deep venous thrombosis (HCC) 02/2016 Depression Hx of blood clots Obesity 09/10/2015 DELORES (obstructive sleep apnea) Pulmonary embolus ([facility]) 6 16 Raynaud phenomenon 09/10/2015 Smoker 09/10/2015 [3] Past Surgical History: Procedure Laterality Date ABDOMINAL SURGERY BRONCHOSCOPY 02/25/2020 BRONCHOSCOPY (HISTORICAL) 02/25/2020 CARDIAC ELECTROPHYSIOLOGY PROCEDURE N/A 05/25/2025 Performed by Karthik Mendoza MD at [facility] Cardiac Cath/EP Lab COLONOSCOPY 10/27/[address] CHEST ANGIOGRAM W AND/OR WO IV CONTRAST 07/12/2022 CT CHEST ANGIOGRAM W AND/OR WO IV CONTRAST 07/12/2022 [facility] CT IMAGING FINGER AMPUTATION Left HERNIA REPAIR NOSE SURGERY PACEMAKER (HISTORICAL) [4] Family History Problem Relation Name Age of Onset Asthma Father Congenital Anomaly Father Cancer Father Asthma Sister Heart disease Mother Heart disease Brother Pacemaker Mother Congenital Anomaly Sister Cancer Mother Diabetes Mother [5] apixaban, 5 mg, Oral, BID cefepime, 2,000 mg, IntraVENous, q8h chlorhexidine, , Topical, Daily collagenase, , Topical, Daily dapagliflozin, 10 mg, Oral, Daily dextromethorphan-guaiFENesin, 1 tablet, Oral, BID folic acid, 1 mg, Oral, Daily [Held by provider] furosemide, 40 mg, IntraVENous, BID ipratropium-albuterol, 3 mL, Nebulization, q4h [Held by provider] losartan, 25 mg, Oral, Daily methylPREDNISolone sod suc (PF), 40 mg, IntraVENous, q6h [Held by provider] metoprolol succinate XL, 75 mg, Oral, BID mometasone-formoterol, 2 puff, Inhalation, BID montelukast, 10 mg, Oral, Daily nicotine, 1 patch, TransDERmal, Daily pantoprazole, 40 mg, Oral, Nightly Or pantoprazole (ProtoNix) 40 mg in sodium chloride (PF) 0.9 % 10 mL injection, 40 mg, IntraVENous, Nightly [Held by provider] rosuvastatin, 40 mg, Oral, Daily [Held by provider] sertraline, 100 mg, Oral, Daily sodium chloride 0.9%, 5-40 mL, IntraVENous, q12h sodium chloride, 4 mL, Nebulization, BID spironolactone, 25 mg, Oral, Daily thiamine, 100 mg, Oral, Daily [Held by provider] torsemide, 30 mg, Oral, BID vancomycin, 1,250 mg, IntraVENous, q24h [6] PRN medications: acetaminophen OR acetaminophen, dextrose, dextrose, glucagon (rDNA), glucose, ipratropium-albuterol, polyethylene glycol (PEG) 3350, promethazine OR promethazine OR promethazine, sodium chloride, sodium chloride 0.9% [7] [8] Medications Prior to Admission Medication Sig Dispense Refill Last Dose/Taking albuterol (2.5 MG/3ML) 0.083% nebulizer solution Take 3 mL (2.5 mg) by nebulization as needed for wheezing or shortness of breath. 75 mL 3 apixaban (Eliquis) 5 MG tablet Take 1 tablet (5 mg) by mouth 2 times daily. 60 tablet 11 folic acid (Folvite) 1 MG tablet TAKE 1 TABLET (1,000 MCG) BY MOUTH EVERY MORNING. 90 tablet 3 losartan (Cozaar) 25 MG tablet TAKE 1 TABLET BY MOUTH EVERY DAY 90 tablet 3 metoprolol succinate XL (Toprol-XL) 25 MG 24 hr tablet Take 3 tablets (75 mg) by mouth 2 times daily. Do not crush or chew. mometasone-formoterol (Dulera 100) 100-5 MCG/ACT inhaler Inhale 2 puffs 2 times daily. Rinse mouth with water after use to reduce aftertaste and incidence of candidiasis. Do not swallow. [Paused] rosuvastatin (Crestor) 40 MG tablet TAKE 1 TABLET BY MOUTH EVERY DAY 90 tablet 1 sertraline (Zoloft) 100 MG tablet TAKE 1 TABLET BY MOUTH EVERY DAY 90 tablet 1 spironolactone (Aldactone) 25 MG tablet TAKE 1 TABLET BY MOUTH EVERY DAY 90 tablet 1 thiamine (Vitamin B1) 100 MG tablet Take 1 tablet (100 mg) by mouth daily. tiotropium (Spiriva Respimat) 2.5 MCG/ACT inhaler Inhale 2 puffs daily. torsemide (Demadex) 10 MG tablet Take 3 tablets (30 mg) by mouth 2 times daily. vancomycin IVPB 1500 mg in 250 mL NS (premix) Infuse 250 mL (1,500 mg) into a venous catheter Every 24 hours. [9] No Known Allergies Associated Order(s): INPATIENT CONSULT TO CRITICAL CARE - MEDICAL TEAM Images from the original note were not included. Internal Medicine: MICU Initial Consult Name: Krystina Markham : 1955(70 y.o.) Date: 06/04/25 Attending: Dr. Lange Subjective: Chief Complaint: SOB HPI: 70 y /o male PMH chronic resp failure, COPD on home O2, Afib, heart failure. Recent admission 05/20-06/02 [facility] with septic shock, MRSA bacteremia and Strep pneumonia. He was discharged to [facility]. He returns to hospital for shortness of breath and admitted. ICU consulted for hypotension, currently BP 102/66 improved from 86/55. He was given IVF bolus and does not appear volume overloaded. He is currently awake, not in distress, currently on auto bipap, able to sit up for me, states he has chronic SOB, on exam has prolonged exp wheezes and rhonchi. Revisited pt at 10am off autopap, has breakfast tray, on nasal cannula, does not appear in distress, after receiving breathing treatment. Resp pcr +Human Rhinovirus/Enterovirus CTA chest: IMPRESSION: 1. Negative for acute pulmonary embolus. 2. The RV/LV ratio is <1. This is considered normal*. 3. Persistent, albeit improved consolidation near the posterior left lung base. 4. Additional chronic findings as above Moderate to severe centrilobular and paraseptal emphysema is seen. There is also dependent and bibasilar scarring/atelectasis. Persistent, albeit improved consolidation near the posterior left lung base. Has PICC line placed 06/02 Last TTE 05/26/2025 severe global hypokinesis, but image quality fair, technically difficult study He had MERLIN 05/25/2025 with EF 50%, mild global hypokinesis Had ICD extraction 05/25 Medical History[1] Surgical History[2] Family History[3] Social History Socioeconomic History Marital status: Spouse name: Not on file Number of children: Not on file Years of education: Not on file Highest education level: Not on file Occupational History Not on file Tobacco Use Smoking status: Former Current packs/day: 0.25 Average packs/day: 0.3 packs/day for 53.0 years (13.3 ttl pk-yrs) Types: Cigarettes Start date: 1972 Smokeless tobacco: Never Tobacco comments: 8 cig daily Substance and Sexual Activity Alcohol use: Yes Alcohol/week: 7.0 standard drinks of alcohol Types: 7 Cans of beer per week Comment: once beer daily Drug use: Never Sexual activity: Not on file Other Topics Concern Not on file Social History Narrative Not on file Social Drivers of Health Financial Resource Strain: Low Risk (06/04/2025) Overall Financial Resource Strain (CARDIA) Difficulty of Paying Living Expenses: Not very hard Food Insecurity: Patient Declined (06/04/2025) Hunger Vital Sign Worried About Running Out of Food in the Last Year: Patient declined Ran Out of Food in the Last Year: Patient declined Transportation Needs: No Transportation Needs (06/04/2025) PRAPARE - Transportation Lack of Transportation (Medical): No Lack of Transportation (Non-Medical): No Physical Activity: Inactive (06/04/2025) Exercise Vital Sign Days of Exercise per Week: 0 days Minutes of Exercise per Session: 0 min Stress: No Stress Concern Present (06/04/2025) Citizen Of [place] of Occupational Health - Occupational Stress Questionnaire Feeling of Stress : Not at all Social Connections: Socially Isolated (06/04/2025) Social Connection and Isolation Panel [NHANES] Frequency of Communication with Friends and Family: Never Frequency of Social Gatherings with Friends and Family: Never Attends Zoroastrian Services: Never Active Member of Clubs or Organizations: No Attends Club or Organization Meetings: Never Marital Status: Intimate Partner Violence: Not At Risk (06/04/2025) Humiliation, Afraid, Rape, and Kick questionnaire Fear of Current or Ex-Partner: No Emotionally Abused: No Physically Abused: No Sexually Abused: No Housing Stability: Low Risk (06/04/2025) Housing Stability Vital Sign Unable to Pay for Housing in the Last Year: No Number of Times Moved in the Last Year: 0 Homeless in the Last Year: No Allergies[4] Prior to Admission medications Medication Sig Start Date End Date Taking? Authorizing Provider albuterol (2.5 MG/3ML) 0.083% nebulizer solution Take 3 mL (2.5 mg) by nebulization as needed for wheezing or shortness of breath. 09/28/24 Olya Nunes MD apixaban (Eliquis) 5 MG tablet Take 1 tablet (5 mg) by mouth 2 times daily. 09/16/24 Toi Davis MD folic acid (Folvite) 1 MG tablet TAKE 1 TABLET (1,000 MCG) BY MOUTH EVERY MORNING. 03/15/25 Toi Davis MD losartan (Cozaar) 25 MG tablet TAKE 1 TABLET BY MOUTH EVERY DAY 03/15/25 Toi Davis MD metoprolol succinate XL (Toprol-XL) 25 MG 24 hr tablet Take 3 tablets (75 mg) by mouth 2 times daily. Do not crush or chew. 06/02/25 06/02/26 Roger Munoz MD mometasone-formoterol (Dulera 100) 100-5 MCG/ACT inhaler Inhale 2 puffs 2 times daily. Rinse mouth with water after use to reduce aftertaste and incidence of candidiasis. Do not swallow. 06/02/25 06/02/26 Roger Munoz MD rosuvastatin (Crestor) 40 MG tablet TAKE 1 TABLET BY MOUTH EVERY DAY 05/17/25 Toi Davis MD sertraline (Zoloft) 100 MG tablet TAKE 1 TABLET BY MOUTH EVERY DAY 05/30/25 Toi Davis MD spironolactone (Aldactone) 25 MG tablet TAKE 1 TABLET BY MOUTH EVERY DAY 05/17/25 Toi Davis MD thiamine (Vitamin B1) 100 MG tablet Take 1 tablet (100 mg) by mouth daily. 06/03/25 Roger Munoz MD tiotropium (Spiriva Respimat) 2.5 MCG/ACT inhaler Inhale 2 puffs daily. 06/03/25 06/03/26 Roger Munoz MD torsemide (Demadex) 10 MG tablet Take 3 tablets (30 mg) by mouth 2 times daily. 06/02/25 06/02/26 Roger Munoz MD vancomycin IVPB 1500 mg in 250 mL NS (premix) Infuse 250 mL (1,500 mg) into a venous catheter Every 24 hours. 06/03/25 Roger Munoz MD dapagliflozin (Farxiga) 5 MG tablet Take 1 tablet (5 mg) by mouth daily. 09/17/24 06/04/25 Toi Davis MD Xtzzniaoagd-Fmsexfytn-Gzjnjd (Trelegy Ellipta) 100-62.5-25 MCG/ACT aerosol powder Inhale 1 puff daily. Patient not taking: Reported on 10/14/2024 04/15/24 06/02/25 Bryan Tracey MD metoprolol succinate XL (Toprol-XL) 100 MG 24 hr tablet TAKE 1 TABLET BY MOUTH 2 TIMES DAILY. DO NOT CRUSH OR CHEW. 03/16/25 06/02/25 Toi Davis MD montelukast (Singulair) 10 MG tablet TAKE 1 TABLET BY MOUTH EVERY DAY NIGHTLY 03/18/25 06/02/25 Toi Davis MD sertraline (Zoloft) 100 MG tablet TAKE 1 TABLET BY MOUTH EVERY DAY 01/12/25 05/30/25 Pedro Subramanian MD sodium chloride 0.9% (NS) 0.9 % flush 10 mL by IntraCATHeter route every 12 hours. 06/02/25 06/04/25 Roger Munoz MD sodium chloride 0.9% (NS) 0.9 % flush 10 mL by IntraCATHeter route as needed for line care (before blood draws, before and after infusion or medication administration). 06/02/25 06/04/25 Roger Munoz MD torsemide (Demadex) 20 MG tablet TAKE 2 TABLETS (40 MG) BY MOUTH 2 TIMES DAILY. 01/06/25 06/02/25 Pedro Subramanian MD Objective: Oxygen Delivery: O2 Flow Rate (L/min): 4 L/min VITALS: BP 102/66 (BP Location: Right arm, Patient Position: Lying) Pulse 72 Temp 36.4 C (97.6 F) (Temporal) Resp 20 Ht 1.727 m (5' 8") Wt 77 kg (169 lb 12.1 oz) SpO2 92% BMI 25.81 kg/m CURRENT PULSE OXIMETRY: SpO2: 92 % Review of Systems Constitutional: Negative for chills and fever. Respiratory: Positive for shortness of breath. Cardiovascular: Negative for chest pain. Gastrointestinal: Negative for abdominal pain, nausea and vomiting. Neurological: Negative for headaches. All other systems reviewed and are negative. Constitutional: General Appearance [x]WDWN []Obese []Cachectic []Thin []Ill Eyes: Inspection of Pupils/Irises Pupils round and react: [x]Yes []No Sclera: []Icteric [x]Non-Icteric Inspection of Conjunctiva/Lids Conjunctiva: [x]Injected []Non-Injected Lids: [x]Intact []Lesion Present ENT/Mouth: External Inspection of ears/nose [x] Normal [] Scar/Lesion/Mass Inspection of teeth/lips/gums Dentition: [][place] Teeth []Dentures Lips/Gums: [x]Intact []Lesion Present Mucosa: [x][place] []Moist []Dry Neck: External Appearance Overall Appearance: [x]Normal []Lesion/Mass/Crepitus Present Trachea midline: [x]Yes []No Thyroid [x]Normal []Enlarged []Tender []Mass []Absent Respiratory: Respiratory effort []Labored [x]Non-Labored [] Mechanically-Ventilated Auscultation []Clear []Crackles [x]Wheezes [x][place] Cardiovascular: Auscultation Rate: []Regular []Irregular []Tachycardia []Bradycardia Rhythm: []Regular []Irregular Murmur: []Present []Absent Extremities Peripheral Edema: []Present [x]Absent Varicosities: []Present []Absent Gastrointestinal: Abdomen Palpation: [x]Soft []Firm []Tender [x]Non-Tender []Distended [x]Non-distended Mass: []Present [x]Absent Bowel Sounds: [x]Present []Absent Hernia: []Present []Absent Liver/Spleen: []Hepatosplenomegaly [x]Organomegaly Absent Musculoskeletal: Inspection of Digits and Nails Cyanosis: []Present [x]Absent Clubbing: []Present []Absent Ischemia: []Present [x]Absent Infection: []Present [x]Absent Extremities MOCTEZUMA Equally: Except ([]RUE []RLE []LUE []LLE) Strength/Tone: Intact and Normal ([x]RUE [x]RLE [x]LUE hx amputation [x]LLE) Skin: Inspection [x]Normal []Rash []Lesion []Ulcer Palpation [x]Warm []Cool []Dry []Clammy []Nodules []Induration []Skin-tightening Cap-Refill: [x] <3 sec [] >3 seconds (delayed) Neurologic: GCS EYE: 4 - Opens spontaneously GCS MOTOR: 6 - Obeys commands for movement GCS VERBAL: 5 - Oriented to person, place, time Total GCS: 15 [x] Sensation grossly intact Psych: Mental Status Alert: [x]Yes [] No Oriented: []x0 []X1 []X2 [x]x3 Mood/Affect [x]Normal []Flat []Agitated []Depressed []Anxious [x]Calm []Sedated []NAD [facility] within last 24 hours- BMP: Recent Labs 06/01/25111306/01/25164606/02/251306/04/25 0020 06/04/25 0201 NA 130* 130* 131* 131* -- K 3.3* 3.9 4.2 4.5 -- CL 89* 92* 94* 94* -- CO2 32* 30 28 24 -- BUN 23 25* 24* 24* -- CREATININE 0.83 0.85 0.91 1.10 -- CALCIUM 8.6* 8.6* 8.6* 9.0 -- MG -- -- 1.7 1.6 1.6 PHOS 3.0 -- 3.2 -- 4.2 LFTs: Recent Labs 06/01/25111306/02/251306/04/25 0020 AST -- 247* 134* ALT -- 187* 170* PROT -- 6.3* 7.1 ALBUMIN 2.5* 2.5* 2.9* BILITOT -- 0.6 0.6 ALKPHOS -- 114 114 Glucose: Recent Labs 06/01/25111306/01/25164606/02/251306/04/25 0020 06/04/25 0820 GLUCOSE 133* 119* 98 136* -- POCGLU -- -- -- -- 169* Procal: Recent Labs 06/04/25 020 PROCAL 0.44* CBC: Recent Labs 06/02/251306/04/25 0020 06/04/254 06/04/25210 WBC 9.1 10.7 -- -- HGB 10.9* 12.1* 13.1* 13.0* HCT 31.7* 34.9* -- -- PLT 362 294 -- -- MCV 87.1 86.2 -- -- RDW 13.1 13.1 -- -- ABGs: Recent Labs 06/04/252306/04/25210 PHART 7.433 -- QPR1DLX 35.5 -- PO2ART 79.2* -- SJD9ODO 23.2 -- R2VIFQEA Nasal Cannula (LPM) Nasal Cannula (LPM) Lactic Acid: Recent Labs 06/04/25 0842 LACTATE 0.7 INR: No results for input(s): "INR" in the last 72 hours. Cardiac Injury Profile: No results for input(s): "CKTOTAL", "CKMB", "TROPONINI" in the last 72 hours. Labs in Last 3 months: Lab Results Component Value Date TSH 0.57 05/20/2025 VITD25 17 (L) 07/17/2022 INR 1.2 (H) 09/12/2024 Microbiology- Urine Cx: No results found for: URINECX Blood Cx: Lab Results Component Value Date BLOODCX No growth at 5 days 05/24/2025 BLOODCX No growth at 5 days 05/24/2025 Sputum Cx: Lab Results Component Value Date RESPCULT Rare respiratory elsa present. 05/21/2025 RESPCULT Few Streptococcus pneumoniae (A) 05/21/2025 Gram Stain: Lab Results Component Value Date LABGRAM Moderate Ciliated epithelial cells (A) 05/21/2025 LABGRAM No polymorphonuclear leukocytes seen (A) 05/21/2025 LABGRAM Many Gram positive cocci in pairs and chains (A) 05/21/2025 PNA PCR: Lab Results Component Value Date HUMANMETAPNE Not Detected 06/04/2025 COVID19: No results found for: COVID19 Legionella Ag: Lab Results Component Value Date LEGIONELLAPN Not Detected 05/21/2025 Strep Ag: No results for input(s): "STREPPNEUMO" in the last 72 hours. Imaging- Assessment and Plan: Principal Problem: Shortness of breath Active Problems: Tobacco abuse Poor compliance with medication Pulmonary HTN (HCC) Prolonged QT interval Permanent atrial fibrillation (HCC) Assessment: Acute and chronic resp failure, acute COPD exacerbation 2/2 +Rhinovirus/Enterovirus Recent MRSA bacteremia on vancomycin to end 07/05, recent Strep pneumonia HFimpEF, NICM, permanent Afib on oral anticoagulation with eliquis Plan: Schedule duonebs and solumedrol, f/u resp culture and pneumonia pcr, cont autopap, pulmonary consult Remains on vancomycin and cefepime, ID was consulted Holding losartan, metoprolol, and diuretics at this time GI Prophylaxis: PPI DVT Prophylaxis: Full anticoagulation BMI Classification: Body mass index is 25.81 kg/m . overweight BMI 25-29.9 Disposition: maintain med floor status, discussed with medical team Critical Care Time: 31 minutes Total critical care time caring for this patient with life threatening, unstable organ failure, including direct patient contact, management of life support systems, review of data including imaging and labs, discussions with other team members and physicians, excluding procedures. [1] Past Medical History: Diagnosis Date Alcohol consumption heavy 09/10/2015 stopped 3w ago Asthma ([facility]/HCC) Atrial fibrillation (HCC) CHF (congestive heart failure) (HCC) 01/31/2016 COPD (chronic obstructive pulmonary disease) (HCC) 09/10/2015 Cor, pulmonale, acute (HCC) Deep venous thrombosis (HCC) 02/2016 Depression Hx of blood clots Obesity 09/10/2015 DELORES (obstructive sleep apnea) Pulmonary embolus ([facility]) 6 16 Raynaud phenomenon 09/10/2015 Smoker 09/10/2015 [2] Past Surgical History: Procedure Laterality Date ABDOMINAL SURGERY BRONCHOSCOPY 02/25/2020 BRONCHOSCOPY (HISTORICAL) 02/25/2020 CARDIAC ELECTROPHYSIOLOGY PROCEDURE N/A 05/25/2025 Performed by Karthik Mendoza MD at [facility] Cardiac Cath/EP Lab COLONOSCOPY 10/27/[address] CHEST ANGIOGRAM W AND/OR WO IV CONTRAST 07/12/2022 CT CHEST ANGIOGRAM W AND/OR WO IV CONTRAST 07/12/2022 [facility] CT IMAGING FINGER AMPUTATION Left HERNIA REPAIR NOSE SURGERY PACEMAKER (HISTORICAL) [3] Family History Problem Relation Name Age of Onset Asthma Father Congenital Anomaly Father Cancer Father Asthma Sister Heart disease Mother Heart disease Brother Pacemaker Mother Congenital Anomaly Sister Cancer Mother Diabetes Mother [4] No Known Allergies Images from the original note were not included. Pharmacy Managed Vancomycin Dosing Service Consult Note Consult Date: 06/04/25 Patient Name: Krystina Markham Allergies: Patient has no known allergies. Age: 70 y.o. Sex: male Estimated body mass index is 25.88 kg/m as calculated from the following: Height as of 9/24/25: 1.727 m (5' 8"). Weight as of 06/02/25: 77.2 kg (170 lb 3.2 oz). DW: 77.2 kg Lab Results Component Value Date CREATININE 1.10 06/04/2025 CREATININE 0.91 06/02/2025 BUN 24 (H) 06/04/2025 BUN 24 (H) 06/02/2025 WBC 10.7 06/04/2025 WBC 9.1 06/02/2025 Calculated CrCl: 61.3 mL/min (Cockcroft-Gault) Consulted By: Reji Leon MD Infectious Diagnosis: COPD,Bloodstream Infection (AUC Goal 400-600 mg/L*hr) Random Vancomycin Level Due: 06/05 Antimicrobials: Patient recently received an antibiotic (last 12 hours) None Assessment/Plan: Doses, serum creatinine, and vancomycin levels interfaced automatically to [employer] Back[employer] and data has been analyzed and interpreted. Start Vancomycin 1250 mg every 24 hours based on patient age, weight, renal function, and infectious diagnosis (16.2 mg/kg). Predicted AUC = 543 mg/L*hr (goal 400-600 mg/L*hr) PAUC = >95% (probability that AUC is >400 mg/L*hr) Pconc = <5% (probability that Ctrough is above 20 mcg/mL (toxicity)) Will assess random level on 06/05 and adjust as appropriate. Trend serum creatinine. Orders placed. Thank you for this consult. Please secure text or call with questions. DATE: 06/04/25 TIME: 4:17 AM Verna Peña RPh Clinical Pharmacist Available via Secure Chat documented in this encounter [facility] 06-09-2025 Note Patient declined smo bakari cessation counseling. Accepting of handout with contact information for future reference. [facility] 06-04-2025 Emergency department Note Broadcasted ED patient to 2E. RN report from [facility]- Pt recently dx with sepsis pneumonia,received dose of IV Vancomycin at 1458 06/03/25. Pt was found to be breathing with accessory muscles, pulse ox of 69% RA, RR 32, HR 116, cyanosis noted to hands, lips. RN stated pt was placed on 5L NC and pulse ox was then 94-95% and EMS called. RN stated pt has hx COPD and CHF, alert and oriented x2. PICC line in right upper arm. EMERGENCY DEPARTMENT ENCOUNTER Pt Name: Krystina Markham Birthdate 1955 Date of evaluation: 06/03/2025 ED Provider: Reese Stafford MD CHIEF COMPLAINT Chief Complaint Patient presents with Shortness of Breath Pt brought in by EMS for SOB from [facility]. Pt currently recently diagnosed with pneumonia receiving IV vancomycin. HX of COPD and CHF. HISTORY OF PRESENT ILLNESS (Location/Symptom, Timing/Onset, Context/Setting, Quality, Duration, Modifying Factors, Severity) Note limiting factors. I wore appropriate PPE for the entirety of this encounter. HPI Krystina Markham is a 70 y.o. who presents to the emergency department with chief complaint of shortness of breath. The patient came in by ambulance from his nursing facility. He is there to get IV antibiotics for pneumonia. Apparently he is normally not on oxygen at home. He was brought in because of dyspnea. The patient admits that he is short of breath. He cannot really tell me what makes his breathing worse. He says he used to smoke, but not currently. He has been coughing. The patient denies any fevers. Denies any associated chest pain. He denies any new pain or swelling in his legs. He does have a headache although vision is unchanged. No abdominal pain, vomiting or diarrhea. No urinary complaints. No rash or bruising that is new. No localizing numbness or weakness. No other associated complaints. Nursing Notes were reviewed. Limitations to history: None Outside historians: None REVIEW OF SYSTEMS Review of Systems Constitutional: Negative for chills and fever. HENT: Negative for ear pain and sore throat. Eyes: Negative for visual disturbance. Respiratory: Positive for cough and shortness of breath. Cardiovascular: Negative for chest pain and leg swelling. Gastrointestinal: Negative for abdominal pain, diarrhea and vomiting. Genitourinary: Negative for dysuria. Musculoskeletal: Negative for arthralgias and back pain. Skin: Negative for color change and rash. Neurological: Positive for headaches. Negative for weakness and numbness. All other systems reviewed and are negative. Pertinent positives and negatives as per HPI. PAST MEDICAL HISTORY Medical History[1] SURGICAL HISTORY Surgical History[2] CURRENT MEDICATIONS Previous Medications ALBUTEROL (2.5 MG/3ML) 0.083% NEBULIZER SOLUTION Take 3 mL (2.5 mg) by nebulization as needed for wheezing or shortness of breath. APIXABAN (ELIQUIS) 5 MG TABLET Take 1 tablet (5 mg) by mouth 2 times daily. DAPAGLIFLOZIN (FARXIGA) 5 MG TABLET Take 1 tablet (5 mg) by mouth daily. FOLIC ACID (FOLVITE) 1 MG TABLET TAKE 1 TABLET (1,000 MCG) BY MOUTH EVERY MORNING. LOSARTAN (COZAAR) 25 MG TABLET TAKE 1 TABLET BY MOUTH EVERY DAY METOPROLOL SUCCINATE XL (TOPROL-XL) 25 MG 24 HR TABLET Take 3 tablets (75 mg) by mouth 2 times daily. Do not crush or chew. MOMETASONE-FORMOTEROL (DULERA 100) 100-5 MCG/ACT INHALER Inhale 2 puffs 2 times daily. Rinse mouth with water after use to reduce aftertaste and incidence of candidiasis. Do not swallow. ROSUVASTATIN (CRESTOR) 40 MG TABLET TAKE 1 TABLET BY MOUTH EVERY DAY SERTRALINE (ZOLOFT) 100 MG TABLET TAKE 1 TABLET BY MOUTH EVERY DAY SODIUM CHLORIDE 0.9% (NS) 0.9 % FLUSH 10 mL by IntraCATHeter route every 12 hours. SODIUM CHLORIDE 0.9% (NS) 0.9 % FLUSH 10 mL by IntraCATHeter route as needed for line care (before blood draws, before and after infusion or medication administration). SPIRONOLACTONE (ALDACTONE) 25 MG TABLET TAKE 1 TABLET BY MOUTH EVERY DAY THIAMINE (VITAMIN B1) 100 MG TABLET Take 1 tablet (100 mg) by mouth daily. TIOTROPIUM (SPIRIVA RESPIMAT) 2.5 MCG/ACT INHALER Inhale 2 puffs daily. TORSEMIDE (DEMADEX) 10 MG TABLET Take 3 tablets (30 mg) by mouth 2 times daily. VANCOMYCIN IVPB 1500 MG IN 250 ML NS (PREMIX) Infuse 250 mL (1,500 mg) into a venous catheter Every 24 hours. ALLERGIES Patient has no known allergies. FAMILY HISTORY Family History[3] SOCIAL HISTORY Social History[4] SCREENINGS Earl Coma Scale Best Eye Response: Spontaneous Best Verbal Response: Confused Best Motor Response: Follows commands Earl Coma Scale Score: 14 PHYSICAL EXAM ED Triage Vitals Temp Heart Rate Resp BP 06/03/25 2358 06/03/25235706/03/25235706/03/252357 37.2 C (98.9 F) 97 (!) 29 121/66 SpO2 Temp Source Heart Rate Source Patient Position 06/04/25 0002 06/03/25235706/03/252357 -- (!) 93 % Oral Monitor BP Location FiO2 (%) -- -- Physical Exam Vitals and nursing note reviewed. Constitutional: Appearance: Normal appearance. He is well-developed and normal weight. He is not toxic-appearing. Comments: Patient appears very uncomfortable because of his breathing although nontoxic. HENT: Head: Normocephalic and atraumatic. Right Ear: External ear normal. Left Ear: External ear normal. Nose: Nose normal. Mouth/Throat: Mouth: Mucous membranes are moist. Pharynx: Oropharynx is clear. Eyes: Extraocular Movements: Extraocular movements intact. Conjunctiva/sclera: Conjunctivae normal. Pupils: Pupils are equal, round, and reactive to light. Cardiovascular: Rate and Rhythm: Normal rate and regular rhythm. Heart sounds: Normal heart sounds. No murmur heard. Pulmonary: Effort: Respiratory distress present. Breath sounds: Wheezing and rhonchi present. Comments: The patient is tachypneic. He has diffuse coarse wheezes and some rhonchi. There are some retractions. He is speaking in short sentences and appears to be mentating well. Abdominal: General: Bowel sounds are normal. Palpations: Abdomen is soft. Tenderness: There is no abdominal tenderness. There is no guarding or rebound. Musculoskeletal: General: No swelling or tenderness. Normal range of motion. Cervical back: Normal range of motion and neck supple. Right lower leg: No edema. Left lower leg: No edema. Skin: General: Skin is warm and dry. Neurological: General: No focal deficit present. Mental Status: He is alert and oriented to person, place, and time. GCS: GCS eye subscore is 4. GCS verbal subscore is 5. GCS motor subscore is 6. Cranial Nerves: Cranial nerves 2-12 are intact. Sensory: Sensation is intact. Motor: Motor function is intact. Coordination: Coordination is intact. Psychiatric: Mood and Affect: Mood normal. DIAGNOSTIC RESULTS Procedures/EKG: EKG per my interpretation shows atrial fibrillation at a rate of 94 with a left bundle branch block configuration. Occasional PVCs are present. There are some artifact. There was no acute ST elevation or ST depression. Intervals are within normal limits otherwise. There were no significant changes compared to prior EKG on file except for the ectopy. EKG was reviewed by myself. Physician EKG interpretation can be found in [facility] RADIOLOGY (Per Emergency Physician): Chest x-ray interpreted by me shows some increased interstitial markings in possible mild CHF pattern, but no infiltrate. Interpretation per the Radiologist below, if available at the time of this note: XR chest 1 view (Results Pending) ED BEDSIDE ULTRASOUND: Performed by ED Physician - none LABS: Labs Reviewed NT PRO BNP - Abnormal Result Value NT PRO BNP 10,402 (*) Narrative: NT-proBNP (pg/mL) Rule-In Rule-Out Age (y)/Presentation <50 50-75 >75 All Acute >450 >900 >1800 <300 Non-Acute >600 >600 >600 <125 w/CKD >1200 Patients with levels in the dobbs zone (between rule-out and rule-in levels) need extra physician attention and ancillary testing. Testing is performed on a new assay on a new. COMPREHENSIVE METABOLIC PANEL - Abnormal SODIUM 131 (*) POTASSIUM 4.5 CHLORIDE 94 (*) CARBON DIOXIDE 24 ANION GAP 13 UREA NITROGEN 24 (*) CREATININE 1.10 GLUCOSE 136 (*) CALCIUM 9.0 AST (SGOT) 134 (*) ALT 170 (*) ALKALINE PHOSPHATASE 114 ALBUMIN 2.9 (*) BILIRUBIN, TOTAL 0.6 TOTAL PROTEIN 7.1 eGFR 72.7 CBC WITH AUTO DIFFERENTIAL - Abnormal Auto WBC 10.7 RBC 4.05 (*) Hemoglobin 12.1 (*) Hematocrit 34.9 (*) MCV 86.2 MCH 29.9 MCHC 34.7 RDW 13.1 Platelets 294 MPV 9.1 BLOOD GAS ARTERIAL - Abnormal pH, Arterial 7.433 pCO2, Arterial 35.5 pO2, Arterial 79.2 (*) HCO3, Arterial 23.2 O2 Sat, Arterial 94.9 (*) Base Excess, Arterial -0.6 CO2 Total 24.3 Hgb, blood gas 13.1 (*) Source Of Oxygen Nasal Cannula (LPM) Amount Of Oxygen 6L MANUAL DIFFERENTIAL (CELLAVISION) - Abnormal RBC Morphology Normal Neutrophils % 92 (*) Lymphocytes % 4 (*) Monocytes % 2 (*) Basophils % 1 Myelocytes % 1 (*) Absolute Neutrophil Count 9.8 (*) Lymphocytes Absolute 0.4 (*) Monocytes Absolute 0.2 Basophils Absolute 0.1 Myelocytes Absolute 0.1 (*) Neutrophils Manual 92 Lymphocytes Manual 4 Monocytes Manual 2 Eosinophils Manual Basophils Manual 1 Bands Manual Metamyelocytes Manual Myelocytes Manual 1 Promyelocytes Manual Blasts Manual Atypical Lymphocytes Manual Unclassified Cells, Manual SARS-COV-2, FLU A/B, AND RSV COMBO - Normal SARS-CoV-2 Not Detected Respiratory Syncytial Virus Not Detected Influenza A Not Detected Influenza B Not Detected Narrative: Methodology: real-time, RT-PCR The SARS-CoV-2, Flu A/B, and RSV Combo assay is intended for in vitro diagnostic use under the FDA Emergency Use Authorization (EUA). This test has not been FDA cleared or approved. In compliance with this authorization, please visit www.fda.gov/media/065033/download or www.fda.gov/media/715671/download to access the applicable information sheets. MAGNESIUM - Normal MAGNESIUM 1.6 Narrative: Higher values can be expected in females during menses. HIGH SENSITIVITY TROPONIN, SERIAL BASELINE - Normal Troponin HS Serial Baseline 22 D-DIMER,QUANTITATIVE HIGH SENSITIVITY TROPONIN, SERIAL, SECOND TEST All other labs were within normal range or not returned as of this dictation. EMERGENCY DEPARTMENT COURSE and DIFFERENTIAL DIAGNOSIS/MDM: Vitals: Vitals: 06/03/25 2358 06/04/25 0002 06/04/25 0024 BP: 121/66 Pulse: 97 94 Resp: (!) 29 (!) 28 Temp: 37.2 C (98.9 F) TempSrc: Oral SpO2: (!) 93% 95% Diagnoses as of 06/04/25 0127 Shortness of breath Hypoxemia Acute on chronic congestive heart failure, unspecified heart failure type (HCC) COPD exacerbation (HCC) The patient presented with chief complaint of shortness of breath. The differential diagnosis associated with this patient's presentation includes COPD exacerbation, CHF, pneumonia, unlikely PE, unlikely ACS, unlikely sepsis or bacteremia. Our workup consisted of ordering/reviewing: Chest x-ray, EKG and lab work. Patient is in agreement with this plan. Medications ipratropium-albuterol (Duo-Neb) 0.5-2.5 mg/3 mL nebulizer solution 3 mL (3 mL Nebulization Given 06/04/25 0024) methylPREDNISolone sod suc (PF) (SOLU-Medrol) 40 MG injection 40 mg (40 mg IntraVENous Given 06/04/25 0021) albuterol (2.5 MG/3ML) 0.083% nebulizer solution 2.5 mg (2.5 mg Nebulization Given 06/04/25100) furosemide (Lasix) injection 40 mg (40 mg IntraVENous Given 06/04/25 0106) REVAL: Based on his lung findings, I ordered a breathing treatment for him as well as IV Solu-Medrol. I thought this could be COPD exacerbation. Family arrived later. Apparently he is supposed to be on oxygen, but has not been using it regularly for what ever reason. With supplemental oxygen here, his pulse ox is now within a normal range. He is still slightly tachypneic however. I did discuss EKG and chest x-ray findings with them. Labs were sent. CBC showed a normal white count. H&H are 12.1 and 34.9. CMP showed sodium slightly decreased at 131. BUN is 24. Glucose 136. AST and ALT are 134 and 170 respectively. The rest of the LFTs are normal. Transaminases are actually improved from prior. Troponin was normal. BNP level is over 10,400 which is increased from prior. Before this result came back, I did order another breathing treatment for him. I then ordered IV Lasix. COVID, influenza and RSV negative. ABG unremarkable except for pO2 of 79.2. pH and pCO2 normal. Repeat troponin is pending. D-dimer pending as well. I suspect that his dyspnea is related to CHF exacerbation with underlying COPD because he is still tachypneic, he will require admission for further treatment and evaluation. Patient and family aware of the plan. MTS will be contacted at this time for the admission. CRITICAL CARE TIME None CONSULTS: None PROCEDURES: Unless otherwise noted below, none FINAL IMPRESSION 1. Shortness of breath 2. Hypoxemia 3. Acute on chronic congestive heart failure, unspecified heart failure type ([facility]) 4. COPD exacerbation ([facility]) DISPOSITION Admit 06/04/2025 01:07:46 AM PATIENT REFERRED TO: No follow-up provider specified. DISCHARGE MEDICATIONS: New Prescriptions No medications on file (Comment: Please note this report has been produced using speech recognition software and may contain errors related to that system including errors in grammar, punctuation, and spelling, as well as words and phrases that may be inappropriate. If there are any questions or concerns please feel free to contact the dictating provider for clarification.) Reese Stafford MD (electronically signed) Emergency Medicine Provider [1] Past Medical History: Diagnosis Date Alcohol consumption heavy 09/10/2015 stopped 3w ago Asthma ([facility]) Atrial fibrillation ([facility]) CHF (congestive heart failure) ([facility]) 01/31/2016 COPD (chronic obstructive pulmonary disease) ([facility]) 09/10/2015 Cor, pulmonale, acute ([facility]) Deep venous thrombosis ([facility]) 02/2016 Depression Hx of blood clots Obesity 09/10/2015 DELORES (obstructive sleep apnea) Pulmonary embolus ([facility]) 6 16 Raynaud phenomenon 09/10/2015 Smoker 09/10/2015 [2] Past Surgical History: Procedure Laterality Date ABDOMINAL SURGERY BRONCHOSCOPY 02/25/2020 BRONCHOSCOPY (HISTORICAL) 02/25/2020 CARDIAC ELECTROPHYSIOLOGY PROCEDURE N/A 05/25/2025 Performed by Karthik Mendoza MD at [facility] Cardiac Cath/EP Lab COLONOSCOPY 10/27/[address] CHEST ANGIOGRAM W AND/OR WO IV CONTRAST 07/12/2022 CT CHEST ANGIOGRAM W AND/OR WO IV CONTRAST 07/12/2022 [facility] CT IMAGING FINGER AMPUTATION Left HERNIA REPAIR NOSE SURGERY PACEMAKER (HISTORICAL) [3] Family History Problem Relation Name Age of Onset Asthma Father Congenital Anomaly Father Cancer Father Asthma Sister Heart disease Mother Heart disease Brother Pacemaker Mother Congenital Anomaly Sister Cancer Mother Diabetes Mother [4] Social History Socioeconomic History Marital status: Tobacco Use Smoking status: Former Current packs/day: 0.25 Average packs/day: 0.3 packs/day for 53.0 years (13.3 ttl pk-yrs) Types: Cigarettes Start date: 1972 Smokeless tobacco: Never Tobacco comments: 8 cig daily Substance and Sexual Activity Alcohol use: Yes Alcohol/week: 7.0 standard drinks of alcohol Types: 7 Cans of beer per week Comment: once beer daily Drug use: Never Social Drivers of Health Financial Resource Strain: Low Risk (09/11/2024) Overall Financial Resource Strain (CARDIA) Difficulty of Paying Living Expenses: Not very hard Food Insecurity: No Food Insecurity (09/11/2024) Hunger Vital Sign Worried About Running Out of Food in the Last Year: Never true Ran Out of Food in the Last Year: Never true Transportation Needs: No Transportation Needs (11/02/2024) PRAPARE - Transportation Lack of Transportation (Medical): No Lack of Transportation (Non-Medical): No Physical Activity: Inactive (09/11/2024) Exercise Vital Sign Days of Exercise per Week: 0 days Minutes of Exercise per Session: 0 min Stress: No Stress Concern Present (09/11/2024) Citizen Of [place] of Occupational Health - Occupational Stress Questionnaire Feeling of Stress : Not at all Social Connections: Socially Isolated (09/11/2024) Social Connection and Isolation Panel [NHANES] Frequency of Communication with Friends and Family: Never Frequency of Social Gatherings with Friends and Family: Never Attends Zoroastrian Services: Never Active Member of Clubs or Organizations: No Attends Club or Organization Meetings: Never Marital Status: Intimate Partner Violence: Not At Risk (05/23/2025) Humiliation, Afraid, Rape, and Kick questionnaire Fear of Current or Ex-Partner: No Emotionally Abused: No Physically Abused: No Sexually Abused: No Housing Stability: Low Risk (11/02/2024) Housing Stability Vital Sign Unable to Pay for Housing in the Last Year: No Number of Times Moved in the Last Year: 0 Homeless in the Last Year: No Reese Stafford MD 06/04/25 0127 documented in this encounter [facility] 06-04-2025 Note [facility] 06-04-2025 History and physical note Images from the original note were not included. Medical Teaching Service History & Physical Patient: Krystina Markham : 1955 Acct: [id number] PCP: Toi Davis MD Admitting Physician: No admitting provider for patient encounter. Admission Date: 06/03/2025 Chief Complaint Patient presents with Shortness of Breath Pt brought in by EMS for SOB from [facility]. Pt currently recently diagnosed with pneumonia receiving IV vancomycin. HX of COPD and CHF. History of Presenting Illness: 70-year-old male with a significant PMHx of COPD and HFimpEF, MRSA bacteremia PNA, Raynaud's Phenomenon, DELORES, med non-compliance, chronic hyponatremia, transaminitis, LBBB, alcoholism (last drink more than 1 week ago) and PE. He was brought by ambulance from his halfway facility (SNF) for evaluation of acute-onset shortness of breath. The patient's presentation is in the setting of a recent hospitalization for MRSA bacteremia and sepsis secondary to pneumonia. He was discharged to the SNF on 06/02 to complete a course of IV vancomycin via a right upper arm PICC line, with his most recent dose administered at 14:58 today. This afternoon, nursing staff at the facility found the patient in significant distress, utilizing accessory muscles to breathe with a respiratory rate of 32 and a heart rate of 116. He was noted to have central and peripheral cyanosis, and his oxygen saturation was critically low at 69% on room air. His saturation improved to the mid-90s on 5L nasal cannula, and he was sent to the ED for further evaluation. The patient confirms feeling very short of breath and reports a persistent cough and a headache, but is unable to identify any relieving or worsening factors. A review of systems is negative for fever, chest pain, palpitations, new leg pain or swelling, abdominal pain, nausea, or vomiting. The patient is a former smoker and does not require supplemental oxygen at baseline. Medical History[1] Surgical History[2] Social History Socioeconomic History Marital status: Spouse name: Not on file Number of children: Not on file Years of education: Not on file Highest education level: Not on file Occupational History Not on file Tobacco Use Smoking status: Former Current packs/day: 0.25 Average packs/day: 0.3 packs/day for 53.0 years (13.3 ttl pk-yrs) Types: Cigarettes Start date: 1972 Smokeless tobacco: Never Tobacco comments: 8 cig daily Substance and Sexual Activity Alcohol use: Yes Alcohol/week: 7.0 standard drinks of alcohol Types: 7 Cans of beer per week Comment: once beer daily Drug use: Never Sexual activity: Not on file Other Topics Concern Not on file Social History Narrative Not on file Social Drivers of Health Financial Resource Strain: Low Risk (09/11/2024) Overall Financial Resource Strain (CARDIA) Difficulty of Paying Living Expenses: Not very hard Food Insecurity: No Food Insecurity (09/11/2024) Hunger Vital Sign Worried About Running Out of Food in the Last Year: Never true Ran Out of Food in the Last Year: Never true Transportation Needs: No Transportation Needs (11/02/2024) PRAPARE - Transportation Lack of Transportation (Medical): No Lack of Transportation (Non-Medical): No Physical Activity: Inactive (09/11/2024) Exercise Vital Sign Days of Exercise per Week: 0 days Minutes of Exercise per Session: 0 min Stress: No Stress Concern Present (09/11/2024) Citizen Of [place] of Occupational Health - Occupational Stress Questionnaire Feeling of Stress : Not at all Social Connections: Socially Isolated (09/11/2024) Social Connection and Isolation Panel [NHANES] Frequency of Communication with Friends and Family: Never Frequency of Social Gatherings with Friends and Family: Never Attends Zoroastrian Services: Never Active Member of Clubs or Organizations: No Attends Club or Organization Meetings: Never Marital Status: Intimate Partner Violence: Not At Risk (05/23/2025) Humiliation, Afraid, Rape, and Kick questionnaire Fear of Current or Ex-Partner: No Emotionally Abused: No Physically Abused: No Sexually Abused: No Housing Stability: Low Risk (11/02/2024) Housing Stability Vital Sign Unable to Pay for Housing in the Last Year: No Number of Times Moved in the Last Year: 0 Homeless in the Last Year: No Family History[3] Current Medications[4] Allergies: Patient has no known allergies. Review of Systems Vitals: Vitals: 06/03/25 2358 06/04/25 0002 06/04/25 0024 06/04/25 0211 BP: 121/66 110/79 Pulse: 97 94 (!) 103 Resp: (!) 29 (!) 28 (!) 28 Temp: 37.2 C (98.9 F) TempSrc: Oral SpO2: (!) 93% 95% 96% Physical Exam Constitutional: General: He is not in acute distress. Appearance: He is ill-appearing. He is not toxic-appearing or diaphoretic. Cardiovascular: Rate and Rhythm: Normal rate. Rhythm irregular. Pulses: Normal pulses. Heart sounds: Normal heart sounds. No murmur heard. Pulmonary: Effort: Pulmonary effort is normal. No respiratory distress. Breath sounds: No stridor. Rhonchi present. No wheezing. Abdominal: General: Abdomen is flat. Bowel sounds are normal. Palpations: Abdomen is soft. Tenderness: There is no abdominal tenderness. There is no guarding or rebound. Hernia: No hernia is present. Musculoskeletal: Right lower leg: No edema. Left lower leg: No edema. Skin: General: Skin is warm and dry. Capillary Refill: Capillary refill takes less than 2 seconds. Coloration: Skin is not jaundiced. Neurological: Mental Status: He is alert and oriented to person, place, and time. SEP-1 CORE MEASURE DATA SIRS Criteria Sepsis Criteria Severe Sepsis Criteria Septic Shock Criteria Must meet 2: [] Temperature > 100.4 F (38 C) or < 96.8 F (36 C) [x] HR > 90 [x] RR > 20 [] WBC > 12 or < 4 or 10% bands Must be confirmed or suspected to move forward with diagnosis of sepsis. Must select at least one: [x] Bacterial Infection Confirmed or Suspected. [] Viral Infection Confirmed or Suspected. [] Fungal Infection Confirmed or Suspected. [] No infection present. Patient does not meet criteria for Sepsis. Must meet 1: [] Lactate > 2 or [] Signs of Organ Dysfunction: - SBP < 90 or MAP < 65 - Altered mental status - Creatinine > 2 or increased from baseline - Urine Output < 0.5 ml/kg/hr - Bilirubin > 2 - INR > 1.5 - Platelets < 100,000 - Acute Respiratory Failure as evidenced by new need for NIPPV or mechanical ventilation [] No criteria met for Severe Sepsis. Must meet 1: [] Lactate = or > 4 or [] SBP < 90 or MAP < 65 for at least two readings in the first hour after fluid bolus administration [] No criteria met for Septic Shock. Patient Vitals from 06/03/25 2301 to 06/04/25 0000 BP Temp Temp src Pulse Resp 06/03/25 2358 121/66 37.2 C (98.9 F) Oral 97 (!) 29 Recent Labs 06/01/25 1647 06/02/25 0014 06/04/25 0020 WBC -- 9.1 10.7 CREATININE 0.85 0.91 1.10 BILITOT -- 0.6 0.6 PLT -- 362 294 Labs: Results for orders placed or performed during the hospital encounter of 06/03/25 ECG 12 lead Collection Time: 06/04/25 12:12 AM Result Value Ref Range Heart Rate 94 bpm QRSD Interval 177 ms QT Interval 435 ms QTC Interval 545 ms P [place] 0 degrees QRS [place] -14 degrees T Wave [place] 147 degrees VA Interval 0 ms NT PRO BNP Collection Time: 06/04/25 12:20 AM Result Value Ref Range NT PRO BNP 10,402 (H) <452 pg/mL Comprehensive metabolic panel Collection Time: 06/04/25 12:20 AM Result Value Ref Range SODIUM 131 (L) 136 - 145 mmol/L POTASSIUM 4.5 3.5 - 5.1 mmol/L CHLORIDE 94 (L) 98 - 107 mmol/L CARBON DIOXIDE 24 23 - 31 mmol/L ANION GAP 13 3 - 13 mmol/L UREA NITROGEN 24 (H) 9 - 23 mg/dL CREATININE 1.10 0.72 - 1.25 mg/dL GLUCOSE 136 (H) 82 - 115 mg/dL CALCIUM 9.0 8.8 - 10.0 mg/dL AST (SGOT) 134 (H) <34 U/L ALT 170 (H) <40 U/L ALKALINE PHOSPHATASE 114 40 - 150 U/L ALBUMIN 2.9 (L) 3.4 - 4.8 g/dL BILIRUBIN, TOTAL 0.6 <1.2 mg/dL TOTAL PROTEIN 7.1 6.4 - 8.3 g/dL eGFR 72.7 >60.0 mL/min/1.73m*2 Magnesium Collection Time: 06/04/25 12:20 AM Result Value Ref Range MAGNESIUM 1.6 1.6 - 2.6 mg/dL D-dimer, quantitative Collection Time: 06/04/25 12:20 AM Result Value Ref Range D-DIMER, INNOVANCE 5.23 (H) <0.50 mg/L Serial Troponin, High Sensitivity Collection Time: 06/04/25 12:20 AM Result Value Ref Range Troponin HS Serial Baseline 22 <=35 ng/L CBC auto differential Collection Time: 06/04/25 12:20 AM Result Value Ref Range Auto WBC 10.7 3.6 - 10.7 10*3/uL RBC 4.05 (L) 4.40 - 5.90 10*6/uL Hemoglobin 12.1 (L) 13.0 - 18.0 g/dL Hematocrit 34.9 (L) 40.0 - 52.0 % MCV 86.2 77.0 - 99.0 fL MCH 29.9 26.0 - 34.0 pg MCHC 34.7 30.5 - 36.0 % RDW 13.1 11.5 - 15.0 % Platelets 294 140 - 440 10*3/uL MPV 9.1 9.0 - 12.7 fL MANUAL DIFFERENTIAL (CELLAVISION) Collection Time: 06/04/25 12:20 AM Result Value Ref Range RBC Morphology Normal Neutrophils % 92 (H) 38 - 82 % Lymphocytes % 4 (L) 15 - 45 % Monocytes % 2 (L) 5 - 13 % Basophils % 1 0 - 2 % Myelocytes % 1 (H) <=0 % Absolute Neutrophil Count 9.8 (H) 1.8 - 7.5 10*3/uL Lymphocytes Absolute 0.4 (L) 1.0 - 4.3 10*3/uL Monocytes Absolute 0.2 0.0 - 0.9 10*3/uL Basophils Absolute 0.1 0.0 - 0.2 10*3/uL Myelocytes Absolute 0.1 (H) <=0.0 10*3/uL Neutrophils Manual 92 Lymphocytes Manual 4 Monocytes Manual 2 Eosinophils Manual Basophils Manual 1 Bands Manual Metamyelocytes Manual Myelocytes Manual 1 Promyelocytes Manual Blasts Manual Atypical Lymphocytes Manual Unclassified Cells, Manual COVID-19, Flu A/B, and RSV Combo Collection Time: 06/04/25 12:21 AM Specimen: Nasopharynx; Swab Result Value Ref Range SARS-CoV-2 Not Detected Not Detected Respiratory Syncytial Virus Not Detected Not Detected Influenza A Not Detected Not Detected Influenza B Not Detected Not Detected Blood gas, arterial (ACH and SBH) Collection Time: 06/04/25 12:24 AM Result Value Ref Range pH, Arterial 7.433 7.350 - 7.450 pCO2, Arterial 35.5 35.0 - 48.0 mm Hg pO2, Arterial 79.2 (L) 83.0 - 108.0 mm Hg HCO3, Arterial 23.2 21.0 - 27.0 mmol/L O2 Sat, Arterial 94.9 (L) 97.0 - 99.0 % Base Excess, Arterial -0.6 -3.0 - 3.0 mmol/L CO2 Total 24.3 22.0 - 28.0 mmol/L Hgb, blood gas 13.1 (L) Screen only g/dl Source Of Oxygen Nasal Cannula (LPM) Amount Of Oxygen 6L Blood gas, venous Collection Time: 06/04/25 2:11 AM Result Value Ref Range pH, Venous 7.408 7.320 - 7.420 pCO2, Venous 39.6 38.0 - 56.0 mm Hg pO2, Venous 38.5 mm Hg HCO3, Venous 24.4 21.0 - 30.0 mmol/L O2 Sat, Venous 68.8 % Base Excess, Venous -0.1 -3.0 - 3.0 mmol/L Hgb, blood gas 13.0 (L) Screen only g/dl TCO2, Venous 25.6 23.0 - 30.0 mmol/L Source Of Oxygen Nasal Cannula (LPM) Amount Of Oxygen 4 Radiology review: XR chest 1 view Narrative: [facility] 1955 [id number] Exam Date/Time: 06/04/2025 00:06 Procedure: XR CHEST 1 VIEW Ordering Provider: STAFFORD TARAS Reason For Exam: DYSPNEA EXAMINATION: XR chest AP. EXAM DATE & TIME: 06/04/2025 12:06 AM EDT INDICATION: DYSPNEA ADDITIONAL INFORMATION: 70-year-old male with dyspnea presents for evaluation COMPARISON: Chest x-rays dated 06/02/2025, 05/26/2025 and 05/23/2025 TECHNIQUE: AP view of the chest was obtained. FINDINGS: Lines/support devices: Cardiac leads project over the chest, somewhat limiting evaluation. Right arm PICC is noted with its distal tip near the SVC. This is looped in the right axillary region (only partially imaged). Cardiomediastinal silhouette: The heart is borderline enlarged. Lungs/pleura: Interstitial coarsening is present. No focal consolidation, pleural effusion or pneumothorax. Osseous structures: Degenerative changes of the spine and shoulders are seen. No acute osseous abnormality is demonstrated. Remote deformity of the left humeral head/neck is seen. Bones are osteopenic. Other findings: None. Impression: 1. Right arm PICC is looped in the right axillary region (only partially imaged). 2. Cardiomegaly. Report Dictated on Electronically Signed By: Carmine Caraballo MD Electronically Signed Date/Time: 06/04/2025 1:36 AM EDT ECG 12 lead Atrial fibrillation Left bundle branch block No significant change from prior. Artifact noted. Occasional PVC Electronically Signed On 06-04-2025 00:32:08 EDT by Reese Stafford EKG: Rate: 93 Rhythm: Afib [place]: left axis deviation Interval: QTC = 596, Tall T waves likely 2/2 LVH, LBBB (Has h/o LBBB) LVH: Yes ST: ST elevation Lead III, ST depression V6, similar to previous EKG on 06/01/2025 ED medications: Medications dextromethorphan-guaiFENesin (Mucinex DM) 30-600 MG per 12 hr tablet 1 tablet (has no administration in time range) ipratropium-albuterol (Duo-Neb) 0.5-2.5 mg/3 mL nebulizer solution 3 mL (3 mL Nebulization Given 06/04/254) methylPREDNISolone sod suc (PF) (SOLU-Medrol) 40 MG injection 40 mg (40 mg IntraVENous Given 06/04/2520) albuterol (2.5 MG/3ML) 0.083% nebulizer solution 2.5 mg (2.5 mg Nebulization Given 06/04/25100) furosemide (Lasix) injection 40 mg (40 mg IntraVENous Given 06/04/25105) ED COURSE: As above ASSESSMENT/PLAN: SOB 2/2 COPDe vs. HFimpEFe Admit to tele Meds: -COPDe + Tx for MRSA bacteremia ABG: pO2 79.2 VBG: pending -Supplemental O2 PRN - goal 88-92% -Continue home inhalers : Dulera and Spirvia (substituted for Trelegy Ellipta) -Continue home Singulair 10 mg nightly -Duonebs every 4h as needed -Prednisone 40 mg burst for 4 more days -Mucinex PRN -Vancoymcin 1500 mg daily, last day ~07/05/2025 -Chest physiotherapy (OPEP) -HFimpEFe Biventricular ICD in place 07/2022 BNP: 10.4k (BL ~ 5k) Trops neg TTE 05/21/2025: EF 50% w/ indeterminate diastolic dysfunction 2/2 afib, severely dilated RA & LA, No valve issues -Continue home Metoprolol succinate 75 mg BID -Continue home Losartan 25 mg daily -Continue home Spironolactone 25 mg daily -Switch home Farxiga 5 mg daily to 10 mg daily since he does not appear to get hypoglycemia per chart review -Hold home Torsemide 20 mg daily -start with IV lasix 40 mg BID -Holding aggressive fluid resuscitation in the setting of CHF Labs/Imaging/Nursing -COPDe + Tx for MRSA bacteremia -PNA PCR -Resp PCR -Resp Cx -Procal -consider blood cultures given SIRS criteria however recent IV abx use may lower Bcx utility -HFimpEFe -I/Os -Daily wt -fall precautions -CBC/CMP daily Consults -PT/OT -Case management/social work -Pharmacy to dose vanc QTc prolongation QTc 596 -Avoid QT prolonging medications Chronic euvolemic hyponatremia Na 131 Could be 2/2 SSRI use -Low fat diet with no sodium restriction Anemia, mild Hemoglobin 12.1 -Monitor on CBC Atrial fibrillation Hasbled: 2 (age and alcohol use) moderate risk for major bleeding, rate controlled -Continue home Apixaban 5 mg BID -Continue home Metoprolol succinate 75 mg BID Pulmonary HTN DELORES -AutoBipap therapy CAD -Holding home Rosuvastatin 40 mg 2/2 transaminitis -Not on ASA however he is on Eliquis Transaminitis -holding home crestor Mood -Hold home sertraline 100 mg daily due to QTc prolongation Tobacco use -Nicotine patch H/o Raynaud phenomenon -Keep extremities warm as needed -Advise smoking cessation FEN/GI/DVT: IVF: None Electrolytes: Monitor and replace per protocols Diet: General GI PPX: No DVT Prophylaxis: No prophylaxis/Already on anticoagulation: Eliquis 5 mg BID CODE STATUS: Full Problem list completed - Yes Case discussed with: Dr. Bubba Leon MD Pager #: [phone] 06/04/2025 2:44 AM [1] Past Medical History: Diagnosis Date Alcohol consumption heavy 09/10/2015 stopped 3w ago Asthma (HHS/HCC) Atrial fibrillation (HCC) CHF (congestive heart failure) (HCC) 01/31/2016 COPD (chronic obstructive pulmonary disease) (HCC) 09/10/2015 Cor, pulmonale, acute (HCC) Deep venous thrombosis (HCC) 02/2016 Depression Hx of blood clots Obesity 09/10/2015 DELORES (obstructive sleep apnea) Pulmonary embolus (HCC) 6 16 Raynaud phenomenon 09/10/2015 Smoker 09/10/2015 [2] Past Surgical History: Procedure Laterality Date ABDOMINAL SURGERY BRONCHOSCOPY 02/25/2020 BRONCHOSCOPY (HISTORICAL) 02/25/2020 CARDIAC ELECTROPHYSIOLOGY PROCEDURE N/A 05/25/2025 Performed by Karthik Mendoza MD at [facility] Cardiac Cath/EP Lab COLONOSCOPY 10/27/[address] CHEST ANGIOGRAM W AND/OR WO IV CONTRAST 07/12/2022 CT CHEST ANGIOGRAM W AND/OR WO IV CONTRAST 07/12/2022 [facility] CT IMAGING FINGER AMPUTATION Left HERNIA REPAIR NOSE SURGERY PACEMAKER (HISTORICAL) [3] Family History Problem Relation Name Age of Onset Asthma Father Congenital Anomaly Father Cancer Father Asthma Sister Heart disease Mother Heart disease Brother Pacemaker Mother Congenital Anomaly Sister Cancer Mother Diabetes Mother [4] Current Facility-Administered Medications: dextromethorphan-guaiFENesin (Mucinex DM) 30-600 MG per 12 hr tablet 1 tablet, 1 tablet, Oral, BID, Reji Leon MD Current Outpatient Medications: albuterol (2.5 MG/3ML) 0.083% nebulizer solution, Take 3 mL (2.5 mg) by nebulization as needed for wheezing or shortness of breath., Disp: 75 mL, Rfl: 3 apixaban (Eliquis) 5 MG tablet, Take 1 tablet (5 mg) by mouth 2 times daily., Disp: 60 tablet, Rfl: 11 dapagliflozin (Farxiga) 5 MG tablet, Take 1 tablet (5 mg) by mouth daily., Disp: 30 tablet, Rfl: 11 folic acid (Folvite) 1 MG tablet, TAKE 1 TABLET (1,000 MCG) BY MOUTH EVERY MORNING., Disp: 90 tablet, Rfl: 3 losartan (Cozaar) 25 MG tablet, TAKE 1 TABLET BY MOUTH EVERY DAY, Disp: 90 tablet, Rfl: 3 metoprolol succinate XL (Toprol-XL) 25 MG 24 hr tablet, Take 3 tablets (75 mg) by mouth 2 times daily. Do not crush or chew., Disp: , Rfl: mometasone-formoterol (Dulera 100) 100-5 MCG/ACT inhaler, Inhale 2 puffs 2 times daily. Rinse mouth with water after use to reduce aftertaste and incidence of candidiasis. Do not swallow., Disp: , Rfl: [Paused] rosuvastatin (Crestor) 40 MG tablet, TAKE 1 TABLET BY MOUTH EVERY DAY, Disp: 90 tablet, Rfl: 1 sertraline (Zoloft) 100 MG tablet, TAKE 1 TABLET BY MOUTH EVERY DAY, Disp: 90 tablet, Rfl: 1 sodium chloride 0.9% (NS) 0.9 % flush, 10 mL by IntraCATHeter route every 12 hours., Disp: , Rfl: sodium chloride 0.9% (NS) 0.9 % flush, 10 mL by IntraCATHeter route as needed for line care (before blood draws, before and after infusion or medication administration)., Disp: , Rfl: spironolactone (Aldactone) 25 MG tablet, TAKE 1 TABLET BY MOUTH EVERY DAY, Disp: 90 tablet, Rfl: 1 thiamine (Vitamin B1) 100 MG tablet, Take 1 tablet (100 mg) by mouth daily., Disp: , Rfl: tiotropium (Spiriva Respimat) 2.5 MCG/ACT inhaler, Inhale 2 puffs daily., Disp: , Rfl: torsemide (Demadex) 10 MG tablet, Take 3 tablets (30 mg) by mouth 2 times daily., Disp: , Rfl: vancomycin IVPB 1500 mg in 250 mL NS (premix), Infuse 250 mL (1,500 mg) into a venous catheter Every 24 hours., Disp: , Rfl: Cosigned by Charlie Westfall MD at 06/04/2025 8:27 AM EDT documented in this encounter [facility] 06-03-2025 Miscellaneous Notes Images from the original note were not included. Patient discharged to [facility] [phone], spoke to [place] to verify all orders, EOT and follow up appt on 07/06@9am. documented in this encounter [facility] 06-03-2025 Telephone encounter Note Images from the original note were not included. Patient discharged to [facility] [phone], spoke to [place] to verify all orders, EOT and follow up appt on 07/06@9am. [facility] 06-02-2025 Nurse Note Pt report called to [facility], reviewed pt clinical course since hospital admission, reviewed pertinent findings. Pt VSS, pt ready for transfer to SNF at this time. Pt updated on DC plan, pt verbalized understanding. trimming machine set up operator scheduled for today at 1900. Wound Care consulted for Pressure Injury Prevention. Pt's Keegan= 19, pt is no longer at risk at this time. Skin Care Precaution order set in place. Dietitian consult in place. PT/OT consults in place. Will continue to follow peripherally. Please vocera or secure chat message with any questions. Abbie HAZEL, RN Wound Care consulted for Pressure Injury Prevention. Pt's Keegan score= 15 on 05/25 Pt's pressure points assessed. Pt's Heels, Buttocks/coccyx, Back, Elbows, Occiput and ears all intact. Pt sitting in chair for assessment. For Right arm wound assessment and treatment plan, please see Wound/Ostomy [facility]ANQUET CHEF progress notes. Prevention Measures in place, including: [place] sheet with pillows/wedges, Foam heel protectors (removed for assessment, obtained new foams and clinical staff educator to replace once pt returns to bed), Heels elevated off bed on pillows, Sacral foam (obtained), Zinc/Moisture Barrier ointment (in place), Waffle chair cushion (obtained for pt). Skin Care precaution order set in place. Dietitian consult in place. PT consult in place. D/W nursing staff. Instructed pt on pressure injury prevention and importance of turning/postioning every 2hrs while in bed and every 15 min while sitting in chair. Instructed on use and care of waffle chair cushion. Verbalized understanding. Will continue to follow pt. Please Vocera for any questions or concerns. Patricia Baldwin RN, BSN, CWCN documented in this encounter [facility] 06-02-2025 Telephone encounter Note Made in error [facility] 06-02-2025 Miscellaneous Notes Made in error documented in this encounter [facility] 06-02-2025 History of Present illness Narrative Images from the original note were not included. Nephrology Progress Note Patient: Krystina Markham Room number: [id number] Date of Admit: 05/20/2025 LOS: 13 days Admitting physician: Michael Lange MD Referring physician: Ruben Cam MD Outpatient Industrial [employer] Production Operator: None Assessment/Plan: 69 y.o M w/ PMHx significant for COPD, HFrEF (last EF 21%, 11/2023) s/p ICD, A-fib on eliquis for AC, Hx of DVT and PE, Hx of ETOH abuse who initially presented to the [facility] on 04/19/25 from home after patient was found at home minimally responsive. Found to have sepsis 2/2 PNA, was intubated and treated in ICU, now extubated and transferred to [facility] on 05/24. Nephrology consulted for hyponatremia. #Hypoosmolar hyponatremia- Improving #Hypokalemia- Improving #Metabolic alkalosis- Improving -Renal function normal at Cr 0.91 -Serum sodium improved to 131 from 130 day prior -Review of historical labs show mild hyponatremia to low 130s back to at least 2019 -Hypo-osmolar at 278, urine studies with Uosm 297, [place] 62 of less utility with active diuresis -Does appear euvolemic on exam, agree with reduction to torsemide 30 mgs BID, will need volume status monitored closely on outpatient basis- note follow up appointment with Cards scheduled tomorrow -Hypokalemia and metabolic alkalosis are improved -No objections to DC from renal perspective Thank you for this consult, we will continue to follow. Please call or page if any questions [facility] Pager: [phone] Office: [phone]. Office Subjective: Interval history/events: Pleasant today. Notes high UOP from diuretics. No leg swelling. Denies any SOB, chest pain, N/V or other acute complaints. Past Medical History: Medical History[1] Medications: MAR reviewed. Scheduled Meds[2] Continuous Meds[3] Review of Systems: All other ROS negative except those noted above. Physical Exam: Vitals: 06/02/25 0350 06/02/25 0807 06/02/25 1114 06/02/25 1555 BP: 111/61 94/54 120/74 BP Location: Left arm Left arm Left arm Patient Position: Sitting Sitting Sitting Pulse: 50 73 72 Resp: 18 20 18 Temp: 36.2 C (97.2 F) 36.2 C (97.2 F) 36.9 C (98.5 F) TempSrc: Temporal Temporal Temporal SpO2: 96% 93% 93% Weight: 77.2 kg (170 lb 3.2 oz) Height: PF: Admission weight: 90.7 kg (200 lb) Wt Readings from Last 3 Encounters: 06/02/25 77.2 kg (170 lb 3.2 oz) 11/02/24 88 kg (194 lb 0.1 oz) 10/14/24 85.7 kg (188 lb 14.4 oz) I/O last 3 completed shifts: In: 800 (10.4 mL/kg) [P.O.:800] Out: 3475 (45 mL/kg) [Urine:3475 (1.3 mL/kg/hr)] Weight: 77.2 kg Net IO Since Admission: -582.8 mL [06/02/25 1633] General: A&O x 3, NAD HEENT: Sclera clear, EOMI, MMM, Nose/ears/hearing grossly normal Neck: Supple, trachea midline, no mass, no TM Heart: RRR, no rub/heave Lungs: Clear bilaterally, unlabored Abd: Soft, (+) BS, non-tender Ext: No edema Neuro: No tremor/myoclonus Skin: warm and dry, no rash LABS: Recent Labs 05/31/25 0514 06/01/25 0018 06/02/25 0014 WBC 8.2 8.6 9.1 HGB 11.1* 10.7* 10.9* HCT 32.9* 31.5* 31.7* MCV 89.2 88.0 87.1 PLT 316 338 362 No results found for: "IRON", "TIBC", "FERRITIN" Lab Results Component Value Date [id number] 02/14/2024 FOLATE >20.0 02/14/2024 Recent Labs 05/31/25 0514 06/01/25 0018 06/01/25 1114 06/01/25 1647 06/02/25 0014 NA 129* 128* 130* 130* 131* K 3.7 3.3* 3.3* 3.9 4.2 CL 90* 88* 89* 92* 94* CO2 33* 32* 32* 30 28 BUN 20 27* 23 25* 24* CREATININE 0.81 0.80 0.83 0.85 0.91 GLUCOSE 103 92 133* 119* 98 CALCIUM 8.4* 8.2* 8.6* 8.6* 8.6* MG 1.4* 1.8 -- -- 1.7 PHOS 2.5 3.1 3.0 -- 3.2 ANIONGAP 6 8 9 8 9 Lab Results Component Value Date CALCIUM 8.6 (L) 06/02/2025 CAION 4.20 (L) 05/24/2025 PHOS 3.2 06/02/2025 No components found for: "THQI57S" Diagnostic Studies: Personally reviewed available data [labs, MARS, radiologic studies, and electronic records]. Parts of assessment/plan may have been copied from prior entry and amended as needed. It reflects full evaluation and pathophysiology of processes involved. [1] Past Medical History: Diagnosis Date Alcohol consumption heavy 09/10/2015 stopped 3w ago Asthma ([facility]/HCC) Atrial fibrillation (HCC) CHF (congestive heart failure) ([facility]) 01/31/2016 COPD (chronic obstructive pulmonary disease) ([facility]) 09/10/2015 Cor, pulmonale, acute ([facility]) Deep venous thrombosis ([facility]) 02/2016 Depression Hx of blood clots Obesity 09/10/2015 DELORES (obstructive sleep apnea) Pulmonary embolus ([facility]) 6 16 Raynaud phenomenon 09/10/2015 Smoker 09/10/2015 [2] apixaban, 5 mg, Oral, BID chlorhexidine, , Topical, Daily [START ON 06/03/2025] chlorhexidine, , Topical, Daily collagenase, , Topical, Daily dapagliflozin, 5 mg, Oral, Daily folic acid, 1 mg, Oral, Daily losartan, 25 mg, Oral, Daily metoprolol succinate XL, 75 mg, Oral, BID mometasone-formoterol, 2 puff, Inhalation, BID pantoprazole, 40 mg, Oral, Nightly Or pantoprazole (ProtoNix) 40 mg in sodium chloride (PF) 0.9 % 10 mL injection, 40 mg, IntraVENous, Nightly [Held by provider] rosuvastatin, 40 mg, Oral, Daily sertraline, 100 mg, Oral, Daily sodium chloride 0.9%, 10 mL, IntraCATHeter, q12h sodium chloride 0.9%, 5-40 mL, IntraCATHeter, q8h spironolactone, 25 mg, Oral, Daily thiamine, 100 mg, Oral, Daily tiotropium, 2 puff, Inhalation, Daily torsemide, 30 mg, Oral, BID vancomycin, 1,500 mg, IntraVENous, q24h [3] Nutrition Assessment Type and Reason for Visit: Reassess Nutrition Recommendations/Plan: Per MNT protocol will modify Adult diet Regular to include a 2 g low sodium diet Supplement(s): continue chocolate ensure plus HP BID (provides 350 kcals, 20 grams protein, 8 oz per serving) Will continue to monitor labs, meds, po intakes and/or enteral nutrition tolerance, skin integrity, wt trends, and overall nutrition status - RD to follow weekly Malnutrition Assessment: Malnutrition Status: Insufficient data Context: Acute Illness Findings of the 6 clinical characteristics of malnutrition: Energy Intake: Mild decrease in energy intake (Comment) (intubation) Weight Loss: (diuresis) Body Fat Loss: Unable to assess Muscle Mass Loss: Unable to assess Fluid Accumulation: Moderate to Severe Extremities 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 Per D/C summary: "Krystina Markham is a 70 y.o. male w/ PMHx significant for COPD, HFrEF (EF 21% in 11/2023) s/p ICD, A-fib on eliquis, Hx of DVT and PE, Hx of ETOH abuse who initially presented to the [facility] on 04/19/25 from home after patient was found by his ex at home minimally responsive and was having difficulty breathing. Patient found to have septic shock and acute respiratory failure 2/2 LLL pneumonia and MRSA bacteremia. Intubated at [facility] and transferred to [facility] for further evaluation. Patient was extubated on 05/22, currently stable on room air. ID following, currently on vanc which he will require until 07/05. S/p lead extraction/replacement 05/26. Hospital course complicated by downtrending chloride level since restarting home diuretic and history of chronic hyponatremia. Nephrology consulted and thought likely due to diuresis, trialing reducing his torsemide dose given current euvolemic status. Patient developed a mild transaminitis on 06/01, US of abdomen with no acute findings, hepatomegaly, right renal cyst. Liver doppler US without thrombus. Holding statin for now. PICC placed 06/02. Patient is hemodynamically stable for discharge to SNF. CMP q5 days x3 to trend LFTs. Recommend follow-up with PCP regarding worsening transaminitis with negative hep panel." Plan for pickup and t/f to SNF at 7pm tonight. Following extubation po diet was advanced to regular diet and continues chocolate ensure BID w/ good po intakes of 76-100% for both meals and ONS. CBW 170# via SS, down 9# x 1 week w/ diuresis. Nutrition Related Findings: Wound Type: Surgical Incision, Skin Tears (Chest incision, R forearm tear); Keegan Scale Score: 19 Isolation Status: No active isolations Food Allergies: NKFA Teeth: Missing teeth Swallow: Able to swallow solids and liquids without difficulty Feeding: Independent Room Service: Assist Edema: BLE Edema: Moderate pitting, indentation subsides rapidly Abdomen Inspection: Soft, Nondistended; Abdominal Tenderness: Soft, Nontender Bowel Sounds (All Quadrants): Active; Passing Flatus: Yes Last BM Date: 06/01/25 Level of Consciousness: Alert; Orientation Level: Oriented X4 Code Status, Vital Signs, Oxygen Needs, I/Os: Code Status: Full Code Vital Signs: Temp: 36.9 C (98.5 F); Heart Rate: 72; Resp: 18; BP: 120/74; Temp: 36.9 C (98.5 F); MAP (mmHg): 89 Oxygen Therapy: None (Room air); SpO2: 93 % Net IO Since Admission: -582.8 mL [06/02/25 1610] Intake/Output Summary (Last 24 hours) at 06/02/2025 1610 Last data filed at 06/02/2025 1555 Gross per 24 hour Intake 400 ml Output 2000 ml Net -1600 ml Labs/Meds Reviewed: Scheduled Meds[1] Continuous Meds[2] BMP: Recent Labs 05/31/25 0514 06/01/25 0018 06/01/25 1114 06/01/25 1647 06/02/25 0014 NA 129* 128* 130* 130* 131* K 3.7 3.3* 3.3* 3.9 4.2 CL 90* 88* 89* 92* 94* CO2 33* 32* 32* 30 28 BUN 20 27* 23 25* 24* CREATININE 0.81 0.80 0.83 0.85 0.91 GLUCOSE 103 92 133* 119* 98 CALCIUM 8.4* 8.2* 8.6* 8.6* 8.6* MG 1.4* 1.8 -- -- 1.7 PHOS 2.5 3.1 3.0 -- 3.2 HEPATIC: Recent Labs 06/01/25 0018 06/02/25 0014 AST 184* 247* ALT 147* 187* BILITOT 0.5 0.6 ALKPHOS 103 114 Current Nutrition Therapies: Adult diet Regular Current Oral Intake Average Meal Intake: 76-100% Average Supplements Intake: 76-100% Anthropometric Measures: Height: 172.7 cm (5' 8") Current Body Weight: 77.1 kg (170 lb) Weight Source: Standing Scale Admission Body Weight: 90.7 kg (200 lb) (no method 05/20) Usual Body Weight: (per EPIC review --> 04/15/24: 178#, 08/19: 195#, 09/28/24: 188#, 10/14: 188#, 11/02: 194#) [place] Body Weight (lbs) (Calculated): 154 lbs [place] Body Weight (Kg) (Calculated): 70 kg % [place] Body Weight (Calculated): 114.5 % BMI (kg/m2) (Calculated): 25.9 Weight Adjustment For: No Adjustment BMI Categories: Overweight (BMI 25.0-29.9) Nutrition Interventions: Food and/or Nutrient Delivery: Modify Current Diet Nutrition Education/Counseling: No recommendation at this time Coordination of Nutrition Care: Continue to monitor while inpatient Goals: Previous Goal Met: Progressing toward Goal(s) Goals: PO intake 75% or greater Nutrition Monitoring and Evaluation: Behavioral-Environmental Outcomes: None Identified Food/Nutrient Intake Outcomes: Food and Nutrient Intake, Supplement Intake Physical Signs/Symptoms Outcomes: Biochemical Data, GI Status, Fluid Status or Edema, Hemodynamic Status, Nutrition Focused Physical Findings, Skin, Weight Discharge Planning: Continue current diet Leidy Lacy MS, RD, LD Contact: or Epic Chat (dial *[phone] from hospital phone) [1] apixaban, 5 mg, Oral, BID chlorhexidine, , Topical, Daily collagenase, , Topical, Daily dapagliflozin, 5 mg, Oral, Daily folic acid, 1 mg, Oral, Daily losartan, 25 mg, Oral, Daily metoprolol succinate XL, 75 mg, Oral, BID mometasone-formoterol, 2 puff, Inhalation, BID pantoprazole, 40 mg, Oral, Nightly Or pantoprazole (ProtoNix) 40 mg in sodium chloride (PF) 0.9 % 10 mL injection, 40 mg, IntraVENous, Nightly [Held by provider] rosuvastatin, 40 mg, Oral, Daily sertraline, 100 mg, Oral, Daily sodium chloride 0.9%, 5-40 mL, IntraCATHeter, q8h spironolactone, 25 mg, Oral, Daily thiamine, 100 mg, Oral, Daily tiotropium, 2 puff, Inhalation, Daily torsemide, 30 mg, Oral, BID vancomycin, 1,500 mg, IntraVENous, q24h [2] Pharmacy to Dose Vancomycin - Progress Note Lab Results Component Value Date CREATININE 0.91 06/02/2025 BUN 24 (H) 06/02/2025 WBC 9.1 06/02/2025 VANCOTROUGH 34.0 05/31/2025 Doses, serum creatinine, and vancomycin levels interfaced automatically to Smartbill - [employer]ur[employer] Backoffice and data has been analyzed and interpreted. Infectious Diagnosis: CAP Est CrCl: 76 mL/min (Cockcroft-Gault) Assessment: Current regimen vancomycin 1500 mg every 24 hours (19 mg/kg) Predicted AUC = 541 mg/L*hr (goal 400-600 mg/L*hr) PAUC = 95% (probability that AUC is >400 mg/L*hr) Pconc = 5% (probability that Ctrough is above 20 mcg/mL (toxicity)) Plan: Is the current dose therapeutic? [x] Yes - obtain next level on 06/05 unless predicted AUC is sub-/supra-therapeutic or change in serum creatinine. Trend serum creatinine. Trend AUC using Bayesian Modeling. Orders placed. DATE: 06/02/25 TIME: 8:57 AM Karthik Wharton [facility] Clinical Pharmacist Available via Secure Chat Med Team Progress Note Krystina Markham : 1955(70 y.o.) Date: June 02, 2025 Med Team: C Attending: Ruben Cam MD Chief Complaint: Acute metabolic encephalopathy Subjective: Hospital course: Patient is a 69 y.o M w/ PMHx significant for COPD, HFrEF (last EF 21%, 11/2023) s/p ICD, A-fib on eliquis, Hx of DVT and PE, Hx of ETOH abuse who initially presented to the [facility] on 04/19/25 from home after patient was found by his ex at home minimally responsive and was having difficulty breathing. Patient found to have septic shock and acute respiratory failure 2/2 LLL pneumonia and MRSA bacteremia. Intubated at [facility] and transferred to [facility] for further evaluation. Patient was extubated on 05/22, currently stable on room air. ID following, currently on vanc which he will require until 07/05. S/p lead extraction/replacement 05/26. Hospital course complicated by downtrending chloride level since restarting home diuretic and history of chronic hyponatremia. Nephrology consulted and thought likely due to diuresis, trialing reducing his torsemide dose given current euvolemic status. Patient developed a mild transaminitis on 06/01, US of abdomen with no acute findings, hepatomegaly, right renal cyst. Liver doppler US without thrombus. Holding statin for now, discontinued as needed tylenol. Currently awaiting PICC placement for IV antibiotics once SNF approved. Interval history: - No acute events overnight. Vitals stable. Patient is doing well. Denies fever, chills, cough, shortness of breath, chest pain, abdominal pain. Pending PICC line placement once dispo settled/auth obtained. PRN meds used in last 24hrs: Tylenol 650 mg x1 Scheduled Meds:Scheduled Meds[1] Continuous Infusions:Continuous Meds[2] Objective: BP 106/61 (BP Location: Right arm, Patient Position: Lying) Pulse 70 Temp 36.4 C (97.5 F) (Temporal) Resp 18 Ht 5' 8" (1.727 m) Wt 170 lb 3.2 oz (77.2 kg) SpO2 96% PF 44 L/min BMI 25.88 kg/m Physical Exam Constitutional: General: He is not in acute distress. Cardiovascular: Rate and Rhythm: Normal rate. Rhythm irregular. Pulmonary: Effort: Pulmonary effort is normal. Breath sounds: Wheezing present. Comments: Wheezing bilaterally with prolonged expiratory phase Abdominal: General: Bowel sounds are normal. Palpations: Abdomen is soft. Tenderness: There is no abdominal tenderness. Musculoskeletal: Right lower leg: No edema. Left lower leg: No edema. Skin: General: Skin is warm and dry. Neurological: General: No focal deficit present. Mental Status: He is alert. Mental status is at baseline. Select Recent Labs BMP: Recent Labs 05/31/2551306/01/251706/01/25111306/01/25164606/02/25 0014 NA 129* 128* 130* 130* 131* K 3.7 3.3* 3.3* 3.9 4.2 CL 90* 88* 89* 92* 94* CO2 33* 32* 32* 30 28 BUN 20 27* 23 25* 24* CREATININE 0.81 0.80 0.83 0.85 0.91 CALCIUM 8.4* 8.2* 8.6* 8.6* 8.6* MG 1.4* 1.8 -- -- 1.7 PHOS 2.5 3.1 3.0 -- 3.2 LFTs: Recent Labs 06/01/25 0018 06/01/25 11106/02/25 001 AST 184* -- 247* ALT 147* -- 187* PROT 5.8* -- 6.3* ALBUMIN 2.4* 2.5* 2.5* BILITOT 0.5 -- 0.6 ALKPHOS 103 -- 114 Glucose: Recent Labs 05/31/25 0514 06/01/25 0018 06/01/25 1114 06/01/25 16406/02/25 0014 GLUCOSE 103 92 133* 119* 98 Procal: No results for input(s): "PROCAL" in the last 72 hours. CBC: Recent Labs 05/31/25 0514 06/01/25 0018 06/02/25 0014 WBC 8.2 8.6 9.1 HGB 11.1* 10.7* 10.9* HCT 32.9* 31.5* 31.7* PLT 316 338 362 MCV 89.2 88.0 87.1 RDW 13.0 13.0 13.1 ABGs: No results for input(s): "PHART", "REL2PBQ", "PO2ART", "SEG0RIJ", "SO2ART", "G4OFWQUK" in the last 72 hours. Lactic Acid: No results for input(s): "LACTATE" in the last 72 hours. INR: No results for input(s): "INR" in the last 72 hours. Cardiac Injury Profile: No results for input(s): "CKTOTAL", "CKMB", "TROPONINI", "TROPHSBASE", "TROPHS2", "BNP" in the last 72 hours. 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%) 2/2 NICM A-fib on Eliquis, rate controlled and asymptomatic History of PE DVT Ventricular tachycardia -S/p 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 removal on 05/22 in setting of bacteremia -Patient's EF is much improved now, no need for LifeVest per EP recs -Patient continues to remain euvolemic and denies any heart failure symptoms -Continue metoprolol, losartan, spironolactone, Eliquis, torsemide, Farxiga -Hold crestor 2/2 transaminitis -EP signed off, outpatient follow-up -Stable overall, awaiting placement Staph bacteremia LLL pneumonia -S/p ceftriaxone completed 05/27 -Blood cultures NGTD -ID following, plan for PICC this week after patient gets authorized for SNF -IV vancomycin end of therapy 07/05 Hypochloremia, mild Non-anion gap metabolic alkalosis/contraction alkalosis, mild -Patient with chronic hypochloremia and chronic hyponatremia -Bicarb improved to 28 -Sodium stable but low at 131, possibly what is contributing to the hypochloremia -Potentially also secondary to GI losses or poor nutrition/p.o. intake, however patient denies vomiting/diarrhea and says that he is eating well -Patient takes 40 mg torsemide twice daily, chronic urinary chloride loss from diuresis also on the differential -Salt tabs relatively contraindicated due to patient's heart failure -Nephrology consult, will trial reducing torsemide to 30 mg BID and continue to follow interval indices Transaminitis -AST/ALT 247 and 187 today, from 97 and 75 one week ago -May be due to volume contraction, however unlikely 2/2 volume contraction alone -Patient does not appear volume overloaded so less likely hepatic congestion -US liver doppler without thrombosis -US of abdomen with no acute findings, hepatomegaly, right renal cyst -Hepatitis studies from admission negative -Hold statin for now -Discontinue tylenol as needed -Check LFTs daily Acute on chronic respiratory failure 2/2 COPD, improving -Patient on room air satting 90s -Home requirement is 2 L -S/p 3-day course of prednisone completed 05/25 -Continue bronchodilators Resolved Problems: Septic shock secondary to staph bacteremia and L lower lobe pneumonia - Leukocytosis resolved - Vital signs stable, within normal limits VIMAL Acute respiratory failure 2/2 L lower lobe pneumonia - Patient currently stable on home dose of oxygen Acute encephalopathy Chronic Stable Problems and Follow Up Items: Hyponatremia, chronic -Patient's baseline is around 128-132 -Patient's sodium has been stable around 128-130 over the last several days -Continue to monitor with daily BMP Dispo and Barriers to Discharge: Pending PICC line placement and SNF authorization - Goals of Care: FULL CODE - DVT Prophylaxis: SCD's or Sequential Compression Device - GI Prophylaxis: Protonix daily - Diet: General [1] apixaban, 5 mg, Oral, BID chlorhexidine, , Topical, Daily collagenase, , Topical, Daily dapagliflozin, 5 mg, Oral, Daily folic acid, 1 mg, Oral, Daily losartan, 25 mg, Oral, Daily metoprolol succinate XL, 75 mg, Oral, BID mometasone-formoterol, 2 puff, Inhalation, BID montelukast, 10 mg, Oral, Nightly pantoprazole, 40 mg, Oral, Nightly Or pantoprazole (ProtoNix) 40 mg in sodium chloride (PF) 0.9 % 10 mL injection, 40 mg, IntraVENous, Nightly [Held by provider] rosuvastatin, 40 mg, Oral, Daily sertraline, 100 mg, Oral, Daily sodium chloride 0.9%, 5-40 mL, IntraCATHeter, q8h spironolactone, 25 mg, Oral, Daily thiamine, 100 mg, Oral, Daily tiotropium, 2 puff, Inhalation, Daily torsemide, 30 mg, Oral, BID vancomycin, 1,500 mg, IntraVENous, q24h [2] Cosigned by Ruben Cam MD at 06/02/2025 12:43 PM EDT Associated attestation - Ruben Cam MD - 06/02/2025 12:43 PM EDT Attending Supervising Physician's Attestation Statement Patient seen and examined on 06/02/25. I have discussed the care of Krystina Markham with the Medical student and/or Resident physician I have personally taken a history, examined the patient, and performed the associated medical decision making activities. I have reviewed and verified the attested documentation. Unless otherwise noted below, this documentation reflects the the history, physical exam and medical decision making that I performed myself. Please see below for my personal highlights or additions to the note I spent total time providing counseling or in coordination of care: 36 minutes patient and family updated, Ipersonally examined the patient, I personally reviewed chart, data, labs radiology reports, and I personally reviewed and agree with resident physical exam, assessment/plan with my noted corrections if any IMP: MRSA pneumonia and bactermia Afib Etoh use Transaminitis Plan; IV vancomycin Stop liver toxic drugs Eliquis for afib Pharmacy to Dose Vancomycin - Progress Note Lab Results Component Value Date CREATININE 0.83 06/01/2025 BUN 23 06/01/2025 WBC 8.6 06/01/2025 VANCOTROUGH 34.0 05/31/2025 Doses, serum creatinine, and vancomycin levels interfaced automatically to Smartbill - [employer]ur[employer] Backoffice and data has been analyzed and interpreted. Infectious Diagnosis: Pneumonia/bacteremia Est CrCl: 81.3 mL/min (Cockcroft-Gault) Assessment: Current regimen vancomycin 1500 mg every 24 hours (18.8 mg/kg) Predicted AUC = 493 mg/L*hr (goal 400-600 mg/L*hr) PAUC = 94% (probability that AUC is >400 mg/L*hr) Pconc = <5% (probability that Ctrough is above 20 mcg/mL (toxicity)) Plan: Is the current dose therapeutic? [x] Yes - obtain next level on 06/05 unless predicted AUC is sub-/supra-therapeutic or change in serum creatinine. Trend serum creatinine. Trend AUC using Bayesian Modeling. DATE: 06/01/25 TIME: 2:40 PM Simran Mary RPh Clinical Pharmacist Available via Secure Chat Images from the original note were not included. [facility] - Infectious Diseases Attending Progress Note Subjective: Following for bacteremia and pneumonia. Chart, vitals, labs reviewed. Pt afebrile. Dispo planning ongoing. Pt feels good. No side effects from his antibiotics. Pt reports his breathing is good today. Objective: Vitals: Patient Vitals for the past 24 hrs: BP Temp Temp src Pulse Resp SpO2 Weight 06/01/25 1147 91/50 36.8 C (98.2 F) Temporal 63 16 98 % -- 06/01/25 0741 107/60 36.4 C (97.5 F) Temporal 65 18 92 % -- 06/01/25 0437 104/57 36.9 C (98.4 F) Temporal 59 16 95 % -- 06/01/25 0210 -- -- -- -- -- -- 80 kg (176 lb 6.4 oz) 06/01/25 0040 117/64 36.9 C (98.5 F) Temporal 65 24 92 % -- 05/31/25 1951 103/60 36.4 C (97.5 F) Temporal 64 17 95 % -- 05/31/25 1547 95/54 37 C (98.6 F) Temporal 60 16 91 % -- Physical Exam Vitals and nursing note reviewed. Constitutional: General: He is not in acute distress. Appearance: He is ill-appearing. He is not toxic-appearing or diaphoretic. HENT: Head: Normocephalic and atraumatic. Nose: No rhinorrhea. Eyes: General: Right eye: No discharge. Left eye: No discharge. Abdominal: Palpations: Abdomen is soft. Tenderness: There is no abdominal tenderness. Musculoskeletal: Right lower leg: No edema. Left lower leg: No edema. Skin: General: Skin is warm and dry. Neurological: Mental Status: He is alert and oriented to person, place, and time. Mental status is at baseline. Psychiatric: Behavior: Behavior normal. Thought Content: Thought content normal. Labs: Lab Results Component Value Date/Time NA 130 (L) 06/01/2025 1114 K 3.3 (L) 06/01/2025 1114 CL 89 (L) 06/01/2025 1114 CO2 32 (H) 06/01/2025 1114 CO2 36 (H) 10/14/2024 1440 BUN 23 06/01/2025 1114 BUN 20 10/14/2024 1440 CREATININE 0.83 06/01/2025 1114 CREATININE 0.60 (L) 10/14/2024 1440 GLUCOSE 133 (H) 06/01/2025 1114 GLUCOSE 110 (H) 10/14/2024 1440 CALCIUM 8.6 (L) 06/01/2025 1114 CALCIUM 9.9 10/14/2024 1440 PROT 5.8 (L) 06/01/2025 0018 BILITOT 0.5 06/01/2025 0018 ALKPHOS 103 06/01/2025 0018 AST 184 (H) 06/01/2025 0018 ALT 147 (H) 06/01/2025 0018 PROCAL 0.51 (H) 05/20/2025 2220 PROCAL 0.04 08/19/2024 1947 PROCAL 0.18 (H) 11/11/2023 2351 Lab Results Component Value Date/Time WBC 8.6 06/01/2025 0018 HGB 10.7 (L) 06/01/2025 0018 HGB 13.9 05/22/2025 0326 HCT 31.5 (L) 06/01/2025 001 PLT 338 06/01/2025 0018 GRANULOCYTES 70.7 08/25/2021 0504 LYMPHOPCT 9.6 (L) 06/01/2025 001 LYMPHOPCT 0 (L) 05/20/2025 2220 MONOPCT 12.9 06/01/2025 0018 MONOPCT 0 (L) 05/20/2025 2220 LABEOS 3.6 08/25/2021 0504 BASOPCT 1.0 06/01/2025 001 NEUTROABS 6.3 06/01/2025 0018 Micro: 05/24 BC 2/2 negative 05/22 BC 2/2 MRSA 05/21 sputum elsa, S pneumo /9 pneumonia PCR negative 05/20 Legionella urine antigen negative, Pneumococcus urine antigen positive 05/20 4plex negative 05/20 RPP negative 05/20 BC 2/2 MRSA Lines: PIVs Radiography/Echo/Other: Abd ultrasound pending Liver duplex pending 05/21 AXR Nasogastric tube in adequate position. No acute abnormality 05/20 CT c/a/p Infiltrate in the left posterior lung base suspicious for pneumonia. Again seen are compression fractures of T6-T8. Interval development of a compression fracture of T9. Antimicrobials, Start/End Dates: vanc Impression: 1) MRSA bacteremia 2) S pneumo pneumonia treated 3) alcohol abuse 4) septic shock, resolved 5) VIMAL 6) PPM s/p extraction Plan: - continue vanc; ends 07/05 - ok for PICC - dispo planning - OPAT scanned under the Media tab - following Rachael Ngo MD Based on diagnoses and management, combination of acute and chronic problems, exacerbations and/or acuity, this visit should be considered to be of moderate complexity. Images from the original note were not included. PHYSICAL THERAPY [facility] Treatment Note Name/MRN: Krystina Markham ([id number]) Date of : 1955 Age: 70 y.o. Room/Bed: [facility] A Discharge Recommendation: [facility] Facility Equipment Needed: No Other: TBD Prior Level of Function Prior Level of ADL Function: Independent Prior Level of Mobility: Independent; Device: None Prior Level of Transfers: Independent Assessment Patient was in the bed, listening to the radio. He is waiting on his lunch. He was willing to get up to the chair, and exercise. His right arm is limited at the shoulder, and he is not able to lift it higher than the arm of the chair. He has pain in it, states he has not fallen or anything, but he did come in with encephalopathy. He is unsteady in his gait to the chair, is a poor historian. He has no alarm on his bed. He was asked not to get up by himself. He performed exercises x 12 min, with arms and with legs. He Has a hard time scooting to the edge of the bed and scooting back in the chair. He follows demonstration better than verbal, due to hearing loss. He asks for every question to be repeated. He was left in the chair. He does have a defibrillator. He is not safe for homegoing, recommend SNF upon homegoing. He lives alone, drives. Subjective Patient was transferred to the chair from the bed today and performed exercises in the chair. Pain: Pt denies any current pain. Medical Precautions: No active isolations Proper PPE donned/doffed in accordance with facility standards. Fall Risk: [place] Fall Risk Score: 85 (High Risk) Precautions/Restrictions: Lines/Drains/Airways: has a defibrillator Fall Precautions Overall Cognitive Status: Exceptions - poor historian Overall Orientation Status: Oriented to Place and Oriented to Person Family/Caregiver Present: none Objective Bed Mobility Supine to sit: Min Assist Rolling to left: Modified Independent Scooting: Min Assist Transfers/Mobility Sit to stand: Min Assist Stand to sit: Min Assist Cues given for safety and for hand placement Device(s) used: Front wheeled walker Ambulation Ambulation 1 Assistive device(s) used: Front wheeled walker Assist level: Min Assist Distance (ft): 5' Quality of gait: reciprocal stepping, shuffling, slow luiza, instability through all phases Balance During Session: Posture: fair Sitting - Static: Modified Independent Sitting - Dynamic: Modified Independent Standing - Static: Min Assist Standing - Dynamic: Min Assist Stairs Exercises Heart Failure on Admission Dyspnea: No Heart failure diagnosis: Yes dyspnea with minimal exertion Plan Continue acute PT per plan of care. Safety/Education Safety Safety Devices in place: call light within reach, left in bed, and no alarms engaged upon entry Restraints: No Education Education Given To: patient Education Provided: PT Role, Gait Training, Precautions, and Transfer Training Education Method: Teach Back Barriers to Learning: Hearing Education Outcome: Unable to Verbalize and Continued Education Needed Outcome Measures AM-PAC AM-PAC Inpatient Mobility Raw Score (No Stairs) : 16 JH-HLM JH-HLM Scale: Transferred to chair/commode Goals Patient Stated Goal: .to return home to his dog. Encounter Problems Encounter Problems (Active) Balance Patient will maintain dynamic standing balance for 3-4 minutes with supervision in order to demonstrate decreased risk of falling. (Progressing) Start: 05/28/25 Expected End: 06/25/25 Mobility Patient will ambulate 200 feet with modified independence and least restrictive device in order to improve safety and independence with mobility. (Progressing) Start: 05/28/25 Expected End: 06/25/25 Patient will ascend and descend 4 stairs with one railing and supervision in order to safely negotiate home. (Not Addressed) Start: 05/28/25 Expected End: 06/25/25 Transfers Patient will perform bed mobility with modified independence in order to improve independence and prepare for out of bed mobility. (Progressing) Start: 05/28/25 Expected End: 06/25/25 Patient will complete sit to stand transfer with modified independence to LRD in order to improve safety and prepare for out of bed mobility. (Progressing) Start: 05/28/25 Expected End: 06/25/25 Therapy Time Individual Co-treatment Time In 1125 Time Out 1150 Minutes 25 Timed Code Treatment Minutes: 25 Minutes (FA+ TP) Svitlana Das PT Med Team Progress Note Krystina Markham : 1955(70 y.o.) Date: June 01, 2025 Med Team: Jourdan Attending: Dr. Wilkinson Chief Complaint: Acute metabolic encephalopathy Subjective: - No acute events overnight. Vital stable overall, satting 92 to 95% on room air. Patient had more than 2.8 L UOP charted in last 24 hours and down 1 pound from yesterday. Patient says that he feels fine with no shortness of breath, chest pain, or increased lower extremity edema. He says he picked a SNF from the list. Telemetry shows ventricular rhythm with HR 60s-70s. PRN meds used in last 24hrs: None Agree with above Review of Systems Negative other than what stated above. Scheduled Meds:Scheduled Meds[1] Continuous Infusions:Continuous Meds[2] Objective: BP 107/60 (BP Location: Left arm, Patient Position: Sitting) Pulse 65 Temp 36.4 C (97.5 F) (Temporal) Resp 18 Ht 5' 8" (1.727 m) Wt 176 lb 6.4 oz (80 kg) SpO2 92% PF 44 L/min BMI 26.82 kg/m Physical Exam Vitals and nursing note reviewed. Constitutional: General: He is not in acute distress. Appearance: Normal appearance. HENT: Head: Normocephalic and atraumatic. Nose: No rhinorrhea. Mouth/Throat: Mouth: Mucous membranes are moist. Pharynx: Oropharynx is clear. No oropharyngeal exudate or posterior oropharyngeal erythema. Eyes: Pupils: Pupils are equal, round, and reactive to light. Cardiovascular: Rate and Rhythm: Normal rate. Rhythm irregular. Pulses: Normal pulses. Heart sounds: Normal heart sounds. No murmur heard. No friction rub. No gallop. Pulmonary: Effort: Pulmonary effort is normal. No respiratory distress. Breath sounds: Wheezing and rales present. No rhonchi. Comments: Audible wheezing and rales present bilaterally with prolonged expiratory phase, same as yesterday Abdominal: General: Abdomen is flat. There is no distension. Palpations: Abdomen is soft. Tenderness: There is no abdominal tenderness. Musculoskeletal: Right lower leg: No edema. Left lower leg: No edema. Skin: General: Skin is warm and dry. Capillary Refill: Capillary refill takes less than 2 seconds. Findings: No rash. Neurological: General: No focal deficit present. Mental Status: He is alert and oriented to person, place, and time. Mental status is at baseline. Psychiatric: Mood and Affect: Mood normal. Behavior: Behavior normal. Select Recent Labs BMP: Recent Labs 05/30/25 0515 05/31/25 0514 06/01/25 0018 NA 128* 129* 128* K 3.4* 3.7 3.3* CL 92* 90* 88* CO2 29 33* 32* BUN 20 20 27* CREATININE 0.86 0.81 0.80 CALCIUM 8.1* 8.4* 8.2* MG 1.7 1.4* 1.8 PHOS 2.8 2.5 3.1 LFTs: Recent Labs 06/01/25 0018 AST 184* ALT 147* PROT 5.8* ALBUMIN 2.4* BILITOT 0.5 ALKPHOS 103 Glucose: Recent Labs 05/30/25 0515 05/31/25 0514 06/01/25 0018 GLUCOSE 138* 103 92 Procal: No results for input(s): "PROCAL" in the last 72 hours. CBC: Recent Labs 05/30/25 0515 05/31/25 0514 06/01/25 0018 WBC 9.1 8.2 8.6 HGB 10.9* 11.1* 10.7* HCT 32.3* 32.9* 31.5* PLT 269 316 338 MCV 88.5 89.2 88.0 RDW 13.0 13.0 13.0 ABGs: No results for input(s): "PHART", "CNV3WFQ", "PO2ART", "XRN6XOM", "SO2ART", "F1CLBKFM" in the last 72 hours. Lactic Acid: No results for input(s): "LACTATE" in the last 72 hours. INR: No results for input(s): "INR" in the last 72 hours. Cardiac Injury Profile: No results for input(s): "CKTOTAL", "CKMB", "TROPONINI", "TROPHSBASE", "TROPHS2", "BNP" in the last 72 hours. 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 A-fib on Eliquis, rate controlled and asymptomatic History of PE DVT Ventricular tachycardia -S/p 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 removal on 05/22 in setting of bacteremia -Patient's EF is much improved now, no need for LifeVest per EP recs -Patient continues to remain euvolemic and denies any heart failure symptoms -Continue Crestor, metoprolol, losartan, spironolactone, Eliquis, torsemide, Farxiga -EP signed off, outpatient follow-up -Stable overall, awaiting placement Agree with above Staph bacteremia LLL pneumonia -S/p ceftriaxone completed 05/27 -Blood cultures NGTD -ID following, plan for PICC this week after patient gets authorized for SNF -IV vancomycin end of therapy 07/05 Agree with above Hypochloremia, mild Non-anion gap metabolic alkalosis/contraction alkalosis, mild -Patient with chronic hypochloremia and chronic hyponatremia, chloride downtrending over the last several days, most recent level 88 -Bicarb mildly elevated 32 -Sodium stable but low at 128, possibly what is contributing to the hypochloremia -Potentially also secondary to GI losses or poor nutrition/p.o. intake, however patient denies vomiting/diarrhea and says that he is eating well -Patient takes 40 mg torsemide twice daily, chronic urinary chloride loss from diuresis also on the differential -Salt tabs relatively contraindicated due to patient's heart failure -Nephrology consult Agree with above Elevated LFTs -AST and ALT 184 and 147 today, from 97 and 75 one week ago - May be due to volume contraction, continue to monitor Agree with above, though unlikely to be due to volume contraction alone. Will hold statin for now. Check US liver and doppler to rule out thrombosis. Patient does not appear volume overloaded so less likely hepatic congestion. Hepatitis studies from admission negative. Check LFTs daily. Acute on chronic respiratory failure 2/2 COPD, improving -Patient on room air satting 92 to 95% -Home requirement is 2 L -S/p 3-day course of prednisone completed 05/25 -Continue bronchodilators Resolved Problems: #Septic shock secondary to staph bacteremia and L lower lobe pneumonia - Leukocytosis resolved - Vital signs stable, within normal limits #VIMAL #Acute respiratory failure 2/2 L lower lobe pneumonia - Patient currently stable on home dose of oxygen #Acute encephalopathy Chronic Stable Problems and Follow Up Items: Hyponatremia, chronic -Patient's baseline is around 128-132 -Patient's sodium has been stable around 128-130 over the last several days -Continue to monitor with daily BMP Dispo and Barriers to Discharge: Pending PICC line placement and SNF choice and approval - Goals of Care: FULL CODE - DVT Prophylaxis: SCD's or Sequential Compression Device - GI Prophylaxis: Protonix daily - Diet: General On 06/01/25 I personally examined the patient and reviewed the case with the resident and or med student. I have personally taken a history, examined the patient, and performed the associated medical decision making activities. I have reviewed & verified the attested documentation. Unless otherwise noted below, this documentation reflects the history, physical exam, and medical decision making that I performed myself. I agree with the current plan of care including the workup, evaluation, management, and diagnosis. Care plan has been discussed. The above documentation has been reviewed and edited as needed to reflect the findings of my evaluation. Attending comments are in bold. [1] apixaban, 5 mg, Oral, BID chlorhexidine, , Topical, Daily collagenase, , Topical, Daily dapagliflozin, 5 mg, Oral, Daily folic acid, 1 mg, Oral, Daily losartan, 25 mg, Oral, Daily metoprolol succinate XL, 75 mg, Oral, BID mometasone-formoterol, 2 puff, Inhalation, BID montelukast, 10 mg, Oral, Nightly pantoprazole, 40 mg, Oral, Nightly Or pantoprazole (ProtoNix) 40 mg in sodium chloride (PF) 0.9 % 10 mL injection, 40 mg, IntraVENous, Nightly rosuvastatin, 40 mg, Oral, Daily sertraline, 100 mg, Oral, Daily sodium chloride 0.9%, 5-40 mL, IntraCATHeter, q8h spironolactone, 25 mg, Oral, Daily thiamine, 100 mg, Oral, Daily tiotropium, 2 puff, Inhalation, Daily torsemide, 40 mg, Oral, BID vancomycin, 1,500 mg, IntraVENous, q24h [2] Images from the original note were not included. PHYSICAL THERAPY [facility] Treatment Note Name/MRN: Krystina Markham ([id number]) Date of : 1955 Age: 70 y.o. Room/Bed: [facility] A Discharge Recommendation: [facility] Facility Other: TBD Prior Level of Function Prior Level of ADL Function: Independent Prior Level of Mobility: Independent; Device: None Prior Level of Transfers: Independent Assessment Pt remains limited by SOB and fatigue. Pt required min a for bed mobility, and SBA for transfers. Pt ambulated 250 ft with no assistive device and SBA. Pt presents with waddling gait pattern with postural sway. Patient is not safe to return home alone at risk for falls. Recommend SNF level therapies at discharge. Subjective Pt found sleeping in bed. Cleared by RN. Pt agrees to therapy. Pain: Pt denies any current pain. Medical Precautions: No active isolations Proper PPE donned/doffed in accordance with facility standards. Fall Risk: Landin Fall Risk Score: 85 (High Risk) Precautions/Restrictions: Seizure Precautions Other Position/Activity Restriction: bed alarm Fall Precautions Overall Cognitive Status: WFL Overall Orientation Status: Oriented x4 Family/Caregiver Present: none Objective Bed Mobility Supine to sit: Min Assist Sit to supine: Min Assist HOB Elevated Use of bed rail(s) Transfers/Mobility Sit to stand: Contact Guard Stand to sit: SBA Toilet: SBA Required increased time Device(s) used: None Ambulation Ambulation 1 Assistive device(s) used: None Assist level: SBA Distance (ft): 250 Quality of gait: wide SWAPNA, postural sway, path deviations Resting breaks due to SOB. Pt demonstrated waddling gait with postural sway. Minimal frequent path deviatioins Balance During Session: Posture: fair Sitting - Static: SBA Sitting - Dynamic: SBA Standing - Static: SBA Standing - Dynamic: Contact Guard Heart Failure on Admission Dyspnea: Yes Heart failure diagnosis: Yes dyspnea with moderate exertion Plan Continue acute PT per plan of care. Safety/Education Safety Safety Devices in place: All fall risk precautions in place, call light within reach, left in bed, bed alarm in place, gait belt, and patient at risk for falls Restraints: No Education Education Given To: patient Education Provided: PT Role, PT Goals, Gait Training, and Plan of Care Education Method: Verbal Barriers to Learning: None Education Outcome: Verbalized Understanding Outcome Measures AM-PAC AM-PAC Inpatient Mobility Raw Score (No Stairs) : 17 JH-HLM JH-HLM Scale: Walked 250 ft or more (i.e. several laps on unit) Goals Patient Stated Goal: to go home Encounter Problems Encounter Problems (Active) Balance Patient will maintain dynamic standing balance for 3-4 minutes with supervision in order to demonstrate decreased risk of falling. (Progressing) Start: 05/28/25 Expected End: 06/25/25 Mobility Patient will ambulate 200 feet with modified independence and least restrictive device in order to improve safety and independence with mobility. (Progressing) Start: 05/28/25 Expected End: 06/25/25 Patient will ascend and descend 4 stairs with one railing and supervision in order to safely negotiate home. (Not Addressed) Start: 05/28/25 Expected End: 06/25/25 Transfers Patient will perform bed mobility with modified independence in order to improve independence and prepare for out of bed mobility. (Progressing) Start: 05/28/25 Expected End: 06/25/25 Patient will complete sit to stand transfer with modified independence to LRD in order to improve safety and prepare for out of bed mobility. (Progressing) Start: 05/28/25 Expected End: 06/25/25 Therapy Time Individual Co-treatment Time In 1500 Time Out 1523 Minutes 23 Timed Code Treatment Minutes: 23 Minutes (gait, FA) Jolly Rm Cosigned by Karla Seth, PT at 05/31/2025 3:55 PM EDT Images from the original note were not included. OCCUPATIONAL THERAPY [facility] Initial Evaluation Name/MRN: Krystina Markham ([id number]) Evaluation Date: 05/31/2025 Date of : 1955 Admission Date: 05/20/2025 10:08 PM Age: 70 y.o. Room/Bed: [facility] A Discharge Recommendation: [facility] Facility Assessment IMPRESSION: Patient is a 70 y.o. male admitted for acute metabolic encephalopathy after being found by his ex- soren, minimally responsive, and having difficulty breathing. At baseline, patient was Independent in ADL's and Independent transfers/functional mobility. Patient is limited by the deficits listed below. Patient is Mod Assist for LB ADL's, Modified Independent for toileting using hospital urinal, and Stand By Assist for transfers/functional mobility. Discharge recommendation for halfway facility due to decreased endurance and safety awareness to complete ADL's. Admitting Diagnosis: acute metabolic encephalopathy Performance Deficits /Impairments: Increased Pain, Decreased Functional Mobility, Decreased ADL status, Decreased Strength, Decreased Safety Awareness, Decreased Endurance, Decreased ROM, and Decreased Cognition Prognosis: Fair Decision Making: Medium Complexity Subjective Pt sitting at EOB with lunch tray upon arrival. Pt is agreeable to pause lunch and complete OT evaluation. Pain: Pt denies any current pain. Past Medical History: Medical History[1] Past Surgical History: Surgical History[2] Admission Diagnosis: Patient Active Problem List Diagnosis Date Noted Bloodstream infection 2025 Acute metabolic encephalopathy 05/20/2025 EEG abnormality without seizure 11/03/2024 Requires continuous at home supplemental oxygen 11/03/2024 Acute on chronic respiratory failure with hypoxia and hypercapnia (HCC) 11/02/2024 Prolonged QT interval 11/02/2024 Acute hypercapnic respiratory failure (HCC) 11/01/2024 Acute on chronic systolic (congestive) heart failure (HCC) 09/16/2024 Moderate malnutrition (CMS/HCC) (HCC) 09/12/2024 Acute on chronic congestive heart failure, unspecified heart failure type ([facility]) 09/10/2024 Financial difficulties 08/20/2024 Pulmonary HTN ([facility]) 08/19/2024 DELORES on CPAP 04/15/2024 Heavy tobacco smoker 04/15/2024 Cigarette smoker 04/15/2024 Personal history of smoking 04/15/2024 Paroxysmal atrial fibrillation ([facility]) 03/03/2024 Cervical spondylosis 03/02/2024 Non-pressure chronic ulcer of other part of right foot with unspecified severity (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) 02/17/2024 Alcohol abuse with withdrawal, uncomplicated ([facility]) 02/17/2024 Right arm numbness 02/13/2024 Persistent depressive disorder 02/13/2024 DELORES (obstructive sleep apnea) 02/13/2024 Poor compliance with medication 02/13/2024 On continuous oral anticoagulation 11/21/2023 Acute exacerbation of CHF (congestive heart failure) ([facility]) 11/12/2023 Medical non-compliance 11/12/2023 Anemia in other chronic diseases classified elsewhere 01/01/2023 Closed fracture of neck of left humerus with routine healing 12/31/2022 Hyponatremia 12/29/2022 COPD exacerbation ([facility]) 09/13/2022 Alcohol abuse, continuous 07/28/2022 Presence of cardiac resynchronization therapy defibrillator (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) 07/19/2022 Chest pain, unspecified type 07/17/2022 Hypochloremia 07/17/2022 Tobacco abuse 07/17/2022 Bacteremia 05/20/2025 HFrEF (heart failure with reduced ejection fraction) ([facility]) 07/17/2022 Permanent atrial fibrillation ([facility]) 08/25/2021 History of rib fracture 08/25/2021 Chronic hyponatremia 08/25/2021 Essential hypertension 08/25/2021 Alcohol consumption heavy 08/25/2021 COPD (chronic obstructive pulmonary disease) ([facility]) 08/25/2021 History of adenomatous polyp of colon 11/18/2019 Diverticulosis of large intestine without diverticulitis 10/27/2019 Compression fracture of thoracic vertebra with routine healing 10/07/2019 Osteoporosis 10/07/2019 Venous stasis dermatitis of left lower extremity 07/17/2017 Current moderate episode of major depressive disorder without prior episode ([facility]) 04/10/2017 Cor, pulmonale, acute ([facility]) 02/01/2016 Raynaud phenomenon 09/10/2015 Medical Precautions: No active isolations Proper PPE donned/doffed in accordance with facility standards. Fall Risk: Landin Fall Risk Score: 85 (High Risk) Precautions/Restrictions: Seizure Precautions Lines/Drains/Airways: PIV, PICC line Fall Precautions Wound/Incision sites at the R groin Family/Caregiver Present: none Overall Cognitive Status: Exceptions - Memory: decreased recall of precautions and decreased recall of recent events; believes he is already wearing briefs when he is not - Safety judgement: decreased awareness of need for assistance and decreased awareness of need for safety - Agitation: notable with questioning and when asked to perform tasks, but continues to participate Overall Orientation Status: Oriented to Place, Oriented to Situation, and Oriented to Person Unable to recall year, looks at chart board Social/Functional History Patient admitted from home. Lives With: alone Type of Home: single family home Home Layout: Single Level Home Home Access: Stairs to Enter with Rails (# of stairs: 3) Bathroom Shower/Tub: Shower Chair with Back, Walk in Shower, and Grab Bars Toilet: Standard, grab bars Home Equipment: shower seat Homemaking Responsibilities: Independent Laundry: Basement level Receives Help From: None Active Food Services Director: Yes Prior Level of Function Prior Level of ADL Function: Independent Prior Level of Mobility: Independent; Device: None Prior Level of Transfers: Independent Objective ADLs LE Dressing: Mod Assist doffs socks using feet due to decreased trunk flexion ROM and exertion, attempts to don socks and briefs bent over, requires cueing to use figure four method and for safety awareness with forward weight shift; dons briefs over pelvis in standing; SOB noted with exertion Upper Extremity Assessment AROM: Impaired: Does not attempt with R UE due to pain and PICC line Strength: WFL CHRISTINE UE hand strength Bed Mobility Scooting: Supervision due to decreased safety awareness at EOB, requires cues to scoot back from EOB to limit fall risk during functional tasks; use of bed rails and bed surface to complete HOB Elevated upon arrival and bed rails used to assist with scooting Transfers/Mobility Sit to stand: SBA from EOB during LB dressing task, pushing from bed surface Stand to sit: SBA from standing to EOB during LB dressing, reaches back to brace on bed rail Standing balance: SBA near EOB to pull briefs over pelvis Pt declined further ambulation. Device(s) used: None Heart Failure on Admission Dyspnea: Yes Heart failure diagnosis: Yes dyspnea with minimal exertion AM-PAC AM-PAC Inpatient Daily Activity Raw Score: 16 ADL Inpatient [facility] G-Code Modifier: CK Plan Pt would benefit from skilled acute OT services to address Strengthening, ROM, Self-Care/ADL Training, Functional Mobility Training, Endurance Training, and Safety Education and Training Frequency: 3x/week for 4 weeks Barriers: Pain, Lower extremity weakness, Upper extremity weakness, Decreased endurance, Limited safety awareness, Impulsivity, Limited family support, Limited insight into deficits, and Wound Care Safety/Education Safety Safety Devices in place: gait belt, patient at risk for falls, no alarms engaged upon entry, patient left sitting EOB, and heriberto pad in place Restraints: N/A Education Education Given To: patient Education Provided: OT Role, Plan of Care, ADL Adaptive Strategies, and Orientation Education Method: Verbal and Demonstration Barriers to Learning: Agitation, Cognition Education Outcome: Verbalized Understanding, Demonstrated Understanding, and Continued Education Needed Goals Patient Stated Goal: none reported Encounter Problems Encounter Problems (Active) Bathing Patient will bathe body with or without adaptive techniques/equipment with minimal assistance. Start: 05/31/25 Expected End: 06/28/25 Cognition Patient will demonstrate good safety awareness with use of least restrictive devices and equipment during ADL's with no more than minimal cues Start: 05/31/25 Expected End: 06/28/25 Dressings Lower Extremities Patient will dress lower body with or without adaptive techniques/equipment with minimal assistance. Start: 05/31/25 Expected End: 06/28/25 Toileting Patient will complete toileting tasks at bedside commode with min assist. Start: 05/31/25 Expected End: 06/28/25 Therapy Time Individual Co-Treatment Co-Evaluation Time In 1315 Time Out 1330 Minutes 15 Melisa Escalona/OT Patient's Occupational Therapy Plan of Care supervision is transferred to a [facility] Occupational Therapist. Goals and/or treatment plan was established in collaboration with patient/family/other representatives. [1] Past Medical History: Diagnosis Date Alcohol consumption heavy 09/10/2015 stopped 3w ago Asthma (HHS/HCC) Atrial fibrillation (HCC) CHF (congestive heart failure) (HCC) 01/31/2016 COPD (chronic obstructive pulmonary disease) (HCC) 09/10/2015 Cor, pulmonale, acute (HCC) Deep venous thrombosis (HCC) 02/2016 Depression Hx of blood clots Obesity 09/10/2015 DELORES (obstructive sleep apnea) Pulmonary embolus (HCC) 6 16 Raynaud phenomenon 09/10/2015 Smoker 09/10/2015 [2] Past Surgical History: Procedure Laterality Date ABDOMINAL SURGERY BRONCHOSCOPY 02/25/2020 BRONCHOSCOPY (HISTORICAL) 02/25/2020 CARDIAC ELECTROPHYSIOLOGY PROCEDURE N/A 05/25/2025 Performed by Karthik Mendoza MD at [facility] Cardiac Cath/EP Lab COLONOSCOPY 10/27/[address] CHEST ANGIOGRAM W AND/OR WO IV CONTRAST 07/12/2022 CT CHEST ANGIOGRAM W AND/OR WO IV CONTRAST 07/12/2022 [facility] CT IMAGING FINGER AMPUTATION Left HERNIA REPAIR NOSE SURGERY PACEMAKER (HISTORICAL) Cosigned by Dominga Garcia OT at 05/31/2025 3:36 PM EDT Images from the original note were not included. OCCUPATIONAL THERAPY [facility] Name/MRN: Krystina Markham ([id number]) Date: 05/31/2025 Evaluation is being deferred at present because another caregiver is actively providing care for the patient . Dominga Garcia OT Med Team Progress Note Krystina Markham : 1955(70 y.o.) Date: May 31, 2025 Med Team: Jourdan Attending: Dr. Wilkinson Chief Complaint: Acute metabolic encephalopathy Subjective: - No acute events overnight. Patient had 1 soft BP reading of 91/45 but improved on repeat measurements. Other VSS overnight and patient weaned down to room air from 3 L, currently satting mid 90s. Current telemetry with A-fib with heart rate 60s-70s, QTc 575. Patient seen and evaluated bedside. He denies any acute complaints at this time including shortness of breath, chest pain, abdominal pain. Showed patient SNF list and encouraged him to look it over and choose one. PRN meds used in last 24hrs: None Agree with above Review of Systems Negative other than what stated above Scheduled Meds:Scheduled Meds[1] Continuous Infusions:Continuous Meds[2] Objective: BP 120/64 (BP Location: Left arm, Patient Position: Sitting) Pulse 68 Temp 36.8 C (98.3 F) (Temporal) Resp 20 Ht 5' 8" (1.727 m) Wt 177 lb (80.3 kg) SpO2 99% PF 44 L/min BMI 26.91 kg/m Physical Exam Vitals and nursing note reviewed. Constitutional: General: He is not in acute distress. Appearance: Normal appearance. HENT: Head: Normocephalic and atraumatic. Nose: No rhinorrhea. Mouth/Throat: Mouth: Mucous membranes are moist. Pharynx: Oropharynx is clear. No oropharyngeal exudate or posterior oropharyngeal erythema. Eyes: Pupils: Pupils are equal, round, and reactive to light. Cardiovascular: Rate and Rhythm: Normal rate. Rhythm irregular. Pulses: Normal pulses. Heart sounds: Normal heart sounds. No murmur heard. No friction rub. No gallop. Pulmonary: Effort: Pulmonary effort is normal. No respiratory distress. Breath sounds: Wheezing and rales present. No rhonchi. Comments: Audible wheezing and prolonged expiratory phase bilaterally, same as yesterday Abdominal: General: Abdomen is flat. There is no distension. Palpations: Abdomen is soft. Tenderness: There is no abdominal tenderness. Musculoskeletal: Right lower leg: No edema. Left lower leg: No edema. Skin: General: Skin is warm and dry. Capillary Refill: Capillary refill takes less than 2 seconds. Findings: No rash. Neurological: General: No focal deficit present. Mental Status: He is alert and oriented to person, place, and time. Mental status is at baseline. Psychiatric: Mood and Affect: Mood normal. Behavior: Behavior normal. Select Recent Labs BMP: Recent Labs 05/29/25 0102 05/30/25 0515 05/31/25 0514 NA 128* 128* 129* K 4.0 3.4* 3.7 CL 96* 92* 90* CO2 26 29 33* BUN 16 20 20 CREATININE 0.77 0.86 0.81 CALCIUM 8.1* 8.1* 8.4* MG 1.5* 1.7 1.4* PHOS 3.0 2.8 2.5 LFTs: No results for input(s): "AST", "ALT", "PROT", "ALBUMIN", "BILITOT", "BILIRUBINU", "ALKPHOS", "LIPASE" in the last 72 hours. Glucose: Recent Labs 05/29/25 0102 05/30/25 0515 05/31/25 0514 GLUCOSE 111 138* 103 Procal: No results for input(s): "PROCAL" in the last 72 hours. CBC: Recent Labs 05/29/2510105/30/25 0515 05/31/25 0514 WBC 8.3 9.1 8.2 HGB 11.0* 10.9* 11.1* HCT 31.9* 32.3* 32.9* PLT 223 269 316 MCV 89.1 88.5 89.2 RDW 12.9 13.0 13.0 ABGs: No results for input(s): "PHART", "OEY1EOB", "PO2ART", "BKQ3QVT", "SO2ART", "F8BAKVHS" in the last 72 hours. Lactic Acid: No results for input(s): "LACTATE" in the last 72 hours. INR: No results for input(s): "INR" in the last 72 hours. Cardiac Injury Profile: No results for input(s): "CKTOTAL", "CKMB", "TROPONINI", "TROPHSBASE", "TROPHS2", "BNP" in the last 72 hours. 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 Stable at this point, just awaiting placement. Staph bacteremia LLL pneumonia -S/p ceftriaxone completed 05/27/2025 -Blood cultures NGTD -ID following, plan for patient to get a PICC this week before going to SNF -IV vancomycin end of therapy 07/05/2025 Agree with above Acute on chronic respiratory failure 2/2 COPD, improving - Patient weaned down to room air and satting mid 90s today - Home O2 requirement is 2L - S/p 3-day prednisone course completed 05/25/2025 - Continue bronchodilators Agree with above Hypochloremia, mild Metabolic alkalosis/contraction alkalosis, mild -Chloride level slowly downtrending over the last several days, currently 90 -Bicarb level today mildly elevated at 33 -Potentially secondary to GI losses or poor nutrition/p.o. intake -Continue monitoring with daily BMP Agree with above. Patient denies diarrhea and reports good PO intake right now. I suspect that these electrolyte derangements are due to the torsemide that he takes 40mg bid. Reviewing labs from October 2024, he had very low chloride then as well, along with elevated bicarb so I suspect this is urinary losses from heavy diuresis. Resolved Problems: #Septic shock secondary to staph bacteremia and L lower lobe pneumonia - Leukocytosis resolved - Vital signs stable, within normal limits #VIMAL #Acute respiratory failure 2/2 L lower lobe pneumonia - Patient currently stable on home dose of oxygen #Acute encephalopathy Chronic Stable Problems and Follow Up Items: Hyponatremia, chronic -Patient's baseline is around 128-132 -Patient's sodium has been stable around 128-130 over the last several days -Continue to monitor with daily BMP Dispo and Barriers to Discharge: Pending PICC line placement and SNF choice and approval - Goals of Care: FULL CODE - DVT Prophylaxis: SCD's or Sequential Compression Device - GI Prophylaxis: Protonix daily - Diet: General On 05/31/25 I personally examined the patient and reviewed the case with the resident and or med student. I have personally taken a history, examined the patient, and performed the associated medical decision making activities. I have reviewed & verified the attested documentation. Unless otherwise noted below, this documentation reflects the history, physical exam, and medical decision making that I performed myself. I agree with the current plan of care including the workup, evaluation, management, and diagnosis. Care plan has been discussed. The above documentation has been reviewed and edited as needed to reflect the findings of my evaluation. Attending comments are in bold. [1] apixaban, 5 mg, Oral, BID chlorhexidine, , Topical, Daily collagenase, , Topical, Daily dapagliflozin, 5 mg, Oral, Daily folic acid, 1 mg, Oral, Daily losartan, 25 mg, Oral, Daily magnesium sulfate, 3,000 mg, IntraVENous, Once metoprolol succinate XL, 75 mg, Oral, BID mometasone-formoterol, 2 puff, Inhalation, BID montelukast, 10 mg, Oral, Nightly pantoprazole, 40 mg, Oral, Nightly Or pantoprazole (ProtoNix) 40 mg in sodium chloride (PF) 0.9 % 10 mL injection, 40 mg, IntraVENous, Nightly rosuvastatin, 40 mg, Oral, Daily sertraline, 100 mg, Oral, Daily sodium chloride 0.9%, 5-40 mL, IntraCATHeter, q8h spironolactone, 25 mg, Oral, Daily thiamine, 100 mg, Oral, Daily tiotropium, 2 puff, Inhalation, Daily torsemide, 40 mg, Oral, BID vancomycin, 1,500 mg, IntraVENous, q24h [2] Pharmacy to Dose Vancomycin - Progress Note Lab Results Component Value Date CREATININE 0.81 05/31/2025 BUN 20 05/31/2025 WBC 8.2 05/31/2025 VANCOTROUGH 34.0 05/31/2025 Doses, serum creatinine, and vancomycin levels interfaced automatically to Smartbill - [employer] and data has been analyzed and interpreted. Infectious Diagnosis: CAP Est CrCl: 83 mL/min (Cockcroft-Gault) Assessment: Current regimen vancomycin 1500 mg every 24 hours (18. 4mg/kg) Predicted AUC = 479 mg/L*hr (goal 400-600 mg/L*hr) PAUC = 91% (probability that AUC is >400 mg/L*hr) Pconc = 5% (probability that Ctrough is above 20 mcg/mL (toxicity)) Plan: Is the current dose therapeutic? [x] Yes - obtain next level on 06/05 unless predicted AUC is sub-/supra-therapeutic or change in serum creatinine. Trend serum creatinine. Trend AUC using Bayesian Modeling. Orders placed. DATE: 05/31/25 TIME: 7:43 AM Henny Mendoza PharmD Clinical Pharmacist Available via Secure Chat Pharmacy to Dose Vancomycin - Progress Note Lab Results Component Value Date CREATININE 0.86 05/30/2025 BUN 20 05/30/2025 WBC 9.1 05/30/2025 VANCOTROUGH 25.9 2025 Doses, serum creatinine, and vancomycin levels interfaced automatically to Smartbill - [employer] and data has been analyzed and interpreted. Infectious Diagnosis: CAP Est CrCl: 94 mL/min (Cockcroft-Gault) Assessment: Current regimen vancomycin 1000 mg every 12 hours (12.3 mg/kg) Predicted AUC = 657 mg/L*hr (goal 400-600 mg/L*hr) PAUC = >95% (probability that AUC is >400 mg/L*hr) Pconc = 54% (probability that Ctrough is above 20 mcg/mL (toxicity)) Plan: Is the current dose therapeutic? [x] No - change current regimen to vancomycin 1500 mg every 24 hours (18.4 mg/kg) for predicted AUC 496 mg/L*hr, PAUC = 95% , and Pconc* = <5%. Obtain next level on 05/31. Trend serum creatinine. Trend AUC using Bayesian Modeling. Orders placed. DATE: 05/30/25 TIME: 8:51 AM Harlan Mendez PharmD Clinical Pharmacist Available via Secure Chat Med Team Progress Note Krystina Markham : 1955(70 y.o.) Date: May 30, 2025 Med Team: Jourdan Attending: Dr. Wilkinson Chief Complaint: Acute metabolic encephalopathy Subjective: - No acute events overnight. VSS stable overnight with HR in the 60s, SpO2 in the mid 90s on 3 L O2. Patient says he feels okay overall, but the same as yesterday and denies any acute complaints at this time. No lightheadedness, dizziness, chest pain, shortness of breath, Palpitations, increased TYRONE. A-fib on tele with HRs 60-70s. PRN meds used in last 24hrs: DuoNeb 1X Agree with above Review of Systems Negative other than what stated above Scheduled Meds:Scheduled Meds[1] Continuous Infusions:Continuous Meds[2] Objective: BP 118/60 (BP Location: Left arm, Patient Position: Sitting) Pulse 65 Temp 36.4 C (97.6 F) (Temporal) Resp 20 Ht 5' 8" (1.727 m) Wt 179 lb 9.6 oz (81.5 kg) SpO2 95% PF 44 L/min BMI 27.31 kg/m Physical Exam Vitals and nursing note reviewed. Constitutional: General: He is not in acute distress. Appearance: Normal appearance. HENT: Head: Normocephalic and atraumatic. Nose: No rhinorrhea. Mouth/Throat: Mouth: Mucous membranes are moist. Pharynx: Oropharynx is clear. No oropharyngeal exudate or posterior oropharyngeal erythema. Eyes: Pupils: Pupils are equal, round, and reactive to light. Cardiovascular: Rate and Rhythm: Rhythm irregular. Pulses: Normal pulses. Heart sounds: Normal heart sounds. No murmur heard. No friction rub. No gallop. Pulmonary: Effort: Pulmonary effort is normal. No respiratory distress. Breath sounds: Wheezing and rales present. No rhonchi. Comments: Audible wheezing and prolonged expiratory phase bilaterally Abdominal: General: Abdomen is flat. There is no distension. Palpations: Abdomen is soft. Tenderness: There is no abdominal tenderness. Musculoskeletal: Right lower leg: No edema. Left lower leg: No edema. Skin: General: Skin is warm and dry. Capillary Refill: Capillary refill takes less than 2 seconds. Findings: No rash. Neurological: General: No focal deficit present. Mental Status: He is alert and oriented to person, place, and time. Mental status is at baseline. Psychiatric: Mood and Affect: Mood normal. Behavior: Behavior normal. Select Recent Labs BMP: Recent Labs 05/28/2533405/29/2510105/30/25 0515 NA 128* 128* 128* K 4.3 4.0 3.4* CL 99 96* 92* CO2 24 26 29 BUN 13 16 20 CREATININE 0.74 0.77 0.86 CALCIUM 8.1* 8.1* 8.1* MG 1.5* 1.5* 1.7 PHOS 2.2* 3.0 2.8 LFTs: No results for input(s): "AST", "ALT", "PROT", "ALBUMIN", "BILITOT", "BILIRUBINU", "ALKPHOS", "LIPASE" in the last 72 hours. Glucose: Recent Labs 05/28/2533405/29/2510105/30/25 0515 GLUCOSE 112 111 138* Procal: No results for input(s): "PROCAL" in the last 72 hours. CBC: Recent Labs 05/28/2533405/29/2510105/30/25 0515 WBC 9.4 8.3 9.1 HGB 10.7* 11.0* 10.9* HCT 31.5* 31.9* 32.3* PLT 194 223 269 MCV 90.3 89.1 88.5 RDW 13.0 12.9 13.0 ABGs: No results for input(s): "PHART", "JVE6DMF", "PO2ART", "VLR9CEM", "SO2ART", "C9GDJYWX" in the last 72 hours. Lactic Acid: No results for input(s): "LACTATE" in the last 72 hours. INR: No results for input(s): "INR" in the last 72 hours. Cardiac Injury Profile: No results for input(s): "CKTOTAL", "CKMB", "TROPONINI", "TROPHSBASE", "TROPHS2", "BNP" in the last 72 hours. 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 Staph bacteremia LLL pneumonia -S/p ceftriaxone completed 05/27/2025 -ID following, plan for patient to get a PICC next week before going to SNF given that blood cultures were NGTD - IV vancomycin will end 07/05/2025 Agree with above. Just awaiting PICC and SNF now. Acute on chronic respiratory failure 2/2 COPD, stable -Patient still on 3 L O2 by nasal cannula, SpO2 95% -Patient's home oxygen requirement is 2 L - S/p 3-day prednisone course completed 05/25/2025 -Continue bronchodilators and wean O2 as tolerated Agree with above Resolved Problems: #Septic shock secondary to staph bacteremia and L lower lobe pneumonia - Leukocytosis resolved - Vital signs stable, within normal limits #VIMAL #Acute respiratory failure 2/2 L lower lobe pneumonia - Patient currently stable on home dose of oxygen #Acute encephalopathy Chronic Stable Problems and Follow Up Items: Hyponatremia, chronic Patient's baseline is around 128-132 Patient's sodium has been stable around 128-130 over the last several days Continue to monitor with daily BMP Dispo and Barriers to Discharge: Pending PICC line placement and SNF choice and approval - Goals of Care: FULL CODE - DVT Prophylaxis: SCD's or Sequential Compression Device - GI Prophylaxis: Protonix daily - Diet: NPO On 05/30/25 I personally examined the patient and reviewed the case with the resident and or med student. I have personally taken a history, examined the patient, and performed the associated medical decision making activities. I have reviewed & verified the attested documentation. Unless otherwise noted below, this documentation reflects the history, physical exam, and medical decision making that I performed myself. I agree with the current plan of care including the workup, evaluation, management, and diagnosis. Care plan has been discussed. The above documentation has been reviewed and edited as needed to reflect the findings of my evaluation. Attending comments are in bold. [1] apixaban, 5 mg, Oral, BID chlorhexidine, , Topical, Daily collagenase, , Topical, Daily dapagliflozin, 5 mg, Oral, Daily folic acid, 1 mg, Oral, Daily losartan, 25 mg, Oral, Daily metoprolol succinate XL, 75 mg, Oral, BID mometasone-formoterol, 2 puff, Inhalation, BID montelukast, 10 mg, Oral, Nightly pantoprazole, 40 mg, Oral, Nightly Or pantoprazole (ProtoNix) 40 mg in sodium chloride (PF) 0.9 % 10 mL injection, 40 mg, IntraVENous, Nightly potassium chloride CR, 20 mEq, Oral, Once rosuvastatin, 40 mg, Oral, Daily sertraline, 100 mg, Oral, Daily sodium chloride 0.9%, 5-40 mL, IntraCATHeter, q8h spironolactone, 25 mg, Oral, Daily thiamine, 100 mg, Oral, Daily tiotropium, 2 puff, Inhalation, Daily torsemide, 40 mg, Oral, BID vancomycin, 1,000 mg, IntraVENous, q12h [2] Pharmacy to Dose Vancomycin - Progress Note Lab Results Component Value Date CREATININE 0.77 05/29/2025 BUN 16 05/29/2025 WBC 8.3 05/29/2025 VANCOTROUGH 25.9 2025 Doses, serum creatinine, and vancomycin levels interfaced automatically to Smartbill - [employer] and data has been analyzed and interpreted. Infectious Diagnosis: CAP Est CrCl: 107 mL/min (Cockcroft-Gault) Assessment: Current regimen vancomycin 1000 mg every 12 hours (12 mg/kg) Predicted AUC = 586 mg/L*hr (goal 400-600 mg/L*hr) PAUC = >95% (probability that AUC is >400 mg/L*hr) Pconc = 26% (probability that Ctrough is above 20 mcg/mL (toxicity)) Plan: Is the current dose therapeutic? [x] Yes - obtain next level on 06/01 unless predicted AUC is sub-/supra-therapeutic or change in serum creatinine. Trend serum creatinine. Trend AUC using Bayesian Modeling. Orders placed. DATE: 05/29/25 TIME: 9:05 AM Harlan Mendez PharmD Clinical Pharmacist Available via Secure Chat Med Team Progress Note Krystinashilpa Markham : 1955(70 y.o.) Date: May 29, 2025 Med Team: Jourdan Attending: Dr. Wilkinson Chief Complaint: Acute metabolic encephalopathy Subjective: - No acute events overnight. Yesterday patient said that he was amenable to going to SNF post discharge. VSS stable overnight. Weaned down to 3 L NC, SpO2 97%. Patient seen and evaluated at the bedside. He says he feels well, denies any acute complaints including chest pain or shortness of breath, or palpitations. Currently in A-fib with HR 83 on tele. BP stable. Says he is amenable to going to SNF. PRN meds used in last 24hrs: DuoNeb 1X Agree with above Review of Systems Negative other than what is stated above Scheduled Meds:Scheduled Meds[1] Continuous Infusions:Continuous Meds[2] Objective: BP 127/65 (BP Location: Right arm, Patient Position: Lying) Pulse 68 Temp 36.6 C (97.9 F) (Temporal) Resp 18 Ht 5' 8" (1.727 m) Wt 184 lb 6.4 oz (83.6 kg) SpO2 97% PF 44 L/min BMI 28.04 kg/m Physical Exam Vitals and nursing note reviewed. Constitutional: General: He is not in acute distress. Appearance: Normal appearance. HENT: Head: Normocephalic and atraumatic. Nose: No rhinorrhea. Mouth/Throat: Mouth: Mucous membranes are moist. Pharynx: Oropharynx is clear. No oropharyngeal exudate or posterior oropharyngeal erythema. Eyes: Pupils: Pupils are equal, round, and reactive to light. Cardiovascular: Rate and Rhythm: Normal rate. Rhythm irregular. Pulses: Normal pulses. Heart sounds: Normal heart sounds. No murmur heard. No friction rub. No gallop. Pulmonary: Effort: Pulmonary effort is normal. No respiratory distress. Breath sounds: No wheezing or rales. Comments: Very audible wheezing and prolonged expiratory phase. Abdominal: General: Abdomen is flat. There is no distension. Palpations: Abdomen is soft. Tenderness: There is no abdominal tenderness. Musculoskeletal: Right lower leg: No edema. Left lower leg: No edema. Skin: General: Skin is warm and dry. Capillary Refill: Capillary refill takes less than 2 seconds. Findings: No rash. Neurological: General: No focal deficit present. Mental Status: He is alert and oriented to person, place, and time. Mental status is at baseline. Psychiatric: Mood and Affect: Mood normal. Behavior: Behavior normal. Select Recent Labs BMP: Recent Labs 05/27/25 0312 05/28/25 0335 05/29/25 0102 NA 130* 128* 128* K 4.3 4.3 4.0 CL 101 99 96* CO2 23 24 26 BUN 13 13 16 CREATININE 0.78 0.74 0.77 CALCIUM 8.5* 8.1* 8.1* MG 1.6 1.5* 1.5* PHOS 1.9* 2.2* 3.0 LFTs: No results for input(s): "AST", "ALT", "PROT", "ALBUMIN", "BILITOT", "BILIRUBINU", "ALKPHOS", "LIPASE" in the last 72 hours. Glucose: Recent Labs 05/27/2531105/28/2533405/29/25 0102 GLUCOSE 103 112 111 Procal: No results for input(s): "PROCAL" in the last 72 hours. CBC: Recent Labs 05/27/2531105/28/2533405/29/25 0102 WBC 10.1 9.4 8.3 HGB 11.7* 10.7* 11.0* HCT 34.6* 31.5* 31.9* PLT 175 194 223 MCV 88.9 90.3 89.1 RDW 12.9 13.0 12.9 ABGs: No results for input(s): "PHART", "WHI2SSR", "PO2ART", "NMS3OBL", "SO2ART", "O6AQMNCV" in the last 72 hours. Lactic Acid: No results for input(s): "LACTATE" in the last 72 hours. INR: No results for input(s): "INR" in the last 72 hours. Cardiac Injury Profile: No results for input(s): "CKTOTAL", "CKMB", "TROPONINI", "TROPHSBASE", "TROPHS2", "BNP" in the last 72 hours. 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%) 2/2 NICM A-fib on Eliquis, rate controlled and asymptomatic Hx of PE DVT Ventricular tachycardia -S/p 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 removal on 05/22/2025 -Patient's EF is much improved now, no need for LifeVest per EP -Patient appears euvolemic on exam and denies any heart failure symptoms -Continue Crestor, metoprolol succinate (currently on 75 mg twice daily, uptitrate as tolerated to home dosing 100 mg twice daily), losartan, spironolactone, Eliquis, and resume home torsemide 40 mg twice daily -Resume Farxiga on day of discharge -EP signed off, outpatient follow-up with cardiology Agree with above Staph bacteremia LLL PNA -S/p ceftriaxone completed 05/27/2025 - ID following, patient okay to get a PICC next week per recs given that blood cultures negative post 72 hours and patient is now amenable to going to SNF after discharge - IV antibiotics with vancomycin will end 07/05/2025 Agree with above. Awaiting SNF placement now, PICC next week. Acute on chronic respiratory failure 2/2 COPD -Currently on 3 L O2 by nasal cannula, SpO2 97% - Patient's home oxygen dose is 2 L - S/p 3-day prednisone course completed 05/25/2025 - Continue bronchodilators and wean O2 as tolerated Agree with above Resolved Problems: #Septic shock secondary to staph bacteremia and L lower lobe pneumonia - Leukocytosis resolved - Vital signs stable, within normal limits #VIMAL #Acute respiratory failure 2/2 L lower lobe pneumonia - Patient currently stable on home dose of oxygen #Acute encephalopathy Chronic Stable Problems and Follow Up Items: Hyponatremia, chronic Patient's baseline is around 128-132 Patient's sodium has been stable around 128-130 over the last several days Continue to monitor with daily BMP Dispo and Barriers to Discharge: Pending PICC line placement - Goals of Care: FULL CODE - DVT Prophylaxis: SCD's or Sequential Compression Device - GI Prophylaxis: Protonix daily - Diet: NPO On 05/29/25 I personally examined the patient and reviewed the case with the resident and or med student. I have personally taken a history, examined the patient, and performed the associated medical decision making activities. I have reviewed & verified the attested documentation. Unless otherwise noted below, this documentation reflects the history, physical exam, and medical decision making that I performed myself. I agree with the current plan of care including the workup, evaluation, management, and diagnosis. Care plan has been discussed. The above documentation has been reviewed and edited as needed to reflect the findings of my evaluation. Attending comments are in bold. [1] apixaban, 5 mg, Oral, BID chlorhexidine, , Topical, Daily collagenase, , Topical, Daily dapagliflozin, 5 mg, Oral, Daily folic acid, 1 mg, Oral, Daily losartan, 25 mg, Oral, Daily magnesium sulfate, 3,000 mg, IntraVENous, Once metoprolol succinate XL, 75 mg, Oral, BID mometasone-formoterol, 2 puff, Inhalation, BID montelukast, 10 mg, Oral, Nightly pantoprazole, 40 mg, Oral, Nightly Or pantoprazole (ProtoNix) 40 mg in sodium chloride (PF) 0.9 % 10 mL injection, 40 mg, IntraVENous, Nightly rosuvastatin, 40 mg, Oral, Daily sertraline, 100 mg, Oral, Daily sodium chloride 0.9%, 5-40 mL, IntraCATHeter, q8h spironolactone, 25 mg, Oral, Daily thiamine, 100 mg, Oral, Daily tiotropium, 2 puff, Inhalation, Daily torsemide, 40 mg, Oral, BID vancomycin, 1,000 mg, IntraVENous, q12h [2] Images from the original note were not included. PHYSICAL THERAPY [facility] Initial Evaluation Name/MRN: Krystina Markham ([id number]) Evaluation Date: 2025 Date of : 1955 Admission Date: 05/20/2025 10:08 PM Age: 70 y.o. Room/Bed: [id number] Discharge Recommendation: [facility] Facility Other: TBD Assessment IMPRESSION: Pt presented from home after found down by ex and minimally responsive and having difficulty breathing. Admitted for acute metabolic encephalopathy. At baseline pt is home alone, indep with ADLS, IADLS, and community distance mobility without device. Pt demonstrates with decreased safety awareness, generalized weakness, impaired endurance, and impaired dynamic balance requiring CGA/supv for transfers, supv bed mobility and supv progressing to CGA amb short distances without device. SpO2 87-97% on 4 L NC. Rec SNF at this time as pt does not demonstrate with necessary endurance to care for self indep at this time and demonstrates with increased fall risk. Admitting Diagnosis: acute metabolic encephalopathy, acute resp failure, LLL pneumonia, Prognosis: good Performance Deficits /Impairments: Decreased Functional Mobility, Decreased ADL status, Decreased Strength, Decreased Safety Awareness, Decreased Endurance, Decreased Balance, and Decreased High Level IADLs Decision Making: Medium Complexity Subjective Pt L sidelying/partially sitting at EOB at PT arrival Denies dizziness, nausea, N/t. Agreeable to therapy with encouragement. RN cleared pt for PT. Pain: Pt denies any current pain. Past Medical History: Medical History[1] Past Surgical History: Surgical History[2] Admission Diagnosis: Patient Active Problem List Diagnosis Date Noted Bloodstream infection 2025 Acute metabolic encephalopathy 05/20/2025 EEG abnormality without seizure 11/03/2024 Requires continuous at home supplemental oxygen 11/03/2024 Acute on chronic respiratory failure with hypoxia and hypercapnia ([facility]) 11/02/2024 Prolonged QT interval 11/02/2024 Acute hypercapnic respiratory failure (HCC) 11/01/2024 Acute on chronic systolic (congestive) heart failure ([facility]) 09/16/2024 Moderate malnutrition (CMS/HCC) ([facility]) 09/12/2024 Acute on chronic congestive heart failure, unspecified heart failure type ([facility]) 09/10/2024 Financial difficulties 08/20/2024 Pulmonary HTN ([facility]) 08/19/2024 DELORES on CPAP 04/15/2024 Heavy tobacco smoker 04/15/2024 Cigarette smoker 04/15/2024 Personal history of smoking 04/15/2024 Paroxysmal atrial fibrillation ([facility]) 03/03/2024 Cervical spondylosis 03/02/2024 Non-pressure chronic ulcer of other part of right foot with unspecified severity (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) 02/17/2024 Alcohol abuse with withdrawal, uncomplicated ([facility]) 02/17/2024 Right arm numbness 02/13/2024 Persistent depressive disorder 02/13/2024 DELORES (obstructive sleep apnea) 02/13/2024 Poor compliance with medication 02/13/2024 On continuous oral anticoagulation 11/21/2023 Acute exacerbation of CHF (congestive heart failure) ([facility]) 11/12/2023 Medical non-compliance 11/12/2023 Anemia in other chronic diseases classified elsewhere 01/01/2023 Closed fracture of neck of left humerus with routine healing 12/31/2022 Hyponatremia 12/29/2022 COPD exacerbation ([facility]) 09/13/2022 Alcohol abuse, continuous 07/28/2022 Presence of cardiac resynchronization therapy defibrillator (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) 07/19/2022 Chest pain, unspecified type 07/17/2022 Hypochloremia 07/17/2022 Tobacco abuse 07/17/2022 Bacteremia 05/20/2025 HFrEF (heart failure with reduced ejection fraction) ([facility]) 07/17/2022 Permanent atrial fibrillation ([facility]) 08/25/2021 History of rib fracture 08/25/2021 Chronic hyponatremia 08/25/2021 Essential hypertension 08/25/2021 Alcohol consumption heavy 08/25/2021 COPD (chronic obstructive pulmonary disease) ([facility]) 08/25/2021 History of adenomatous polyp of colon 11/18/2019 Diverticulosis of large intestine without diverticulitis 10/27/2019 Compression fracture of thoracic vertebra with routine healing 10/07/2019 Osteoporosis 10/07/2019 Venous stasis dermatitis of left lower extremity 07/17/2017 Current moderate episode of major depressive disorder without prior episode ([facility]) 04/10/2017 Cor, pulmonale, acute ([facility]) 02/01/2016 Raynaud phenomenon 09/10/2015 Medical Precautions: No active isolations Proper PPE donned/doffed in accordance with facility standards. Fall Risk: Landin Fall Risk Score: 85 (High Risk) Precautions/Restrictions: Seizure Precautions Other Position/Activity Restriction: bed alarm Lines/Drains/Airways: 4 L NC--not in nose at PT arrival, SpO2 91% on RA--donned O2 prior to mobility, PIV Fall Precautions Family/Caregiver Present: none Overall Cognitive Status: Exceptions - Safety judgement: decreased awareness of need for assistance and decreased awareness of need for safety - Insights: fully aware of deficits and decreased awareness of deficits Overall Orientation Status: Oriented to Place, Oriented to Time, and Oriented to Person Vision: Not Assessed Hearing: normal Social/Functional History Patient admitted from home. Lives With: chart states alone, pt reports his ex lives with him but she works during the day. Type of Home: single family home Home Layout: Single Level Home Home Access: Stairs to Enter with Rails (# of stairs: 4) Bathroom Shower/Tub: Shower Chair with Back, Walk in Shower, and Grab Bars Toilet: Standard Home Equipment: shower seat Homemaking Responsibilities: Independent Receives Help From: None Active Food Services Director: Yes Prior Level of Function Prior Level of ADL Function: Independent Prior Level of Mobility: Independent; Device: None Prior Level of Transfers: Independent Objective Lower Extremity Assessment AROM: Impaired: bilat knee ext ~-5-10 deg. PROM: Not assessed this session Strength: Lower Extremity Strength Right Left Hip Flexion 4- 4- Hip Abduction Hip Extension Hip External Rotation (ER) Hip Internal Rotation (IR) Knee Extension 4 4 Knee Flexion Ankle Dorsiflexion (DF) 4- 4- Ankle Plantarflexion (PF) Inversion Eversion Sensation: WFL Balance: Balance During Session: Posture: fair Sitting - Static: Independent Sitting - Dynamic: Modified Independent, Supervision Standing - Static: Supervision, Contact Guard Standing - Dynamic: Supervision, Contact Guard Bed Mobility: Supine to sit: Supervision Sit to supine: Supervision HOB Elevated Transfers Sit to stand: Supervision, Contact Guard Stand to sit: Supervision Toilet: Contact Guard Ambulation Ambulation 1 Assistive device(s) used: None Assist level: Supervision, Contact Guard Distance (ft): 10'x1 pushing IV pole, 10'x1 no IV pole CGA. Quality of gait: reciprocal stepping, uneven step length, narrow SWAPNA, path deviations Pt declined further amb or up to chair at this time. Heart Failure on Admission Dyspnea: Yes Heart failure diagnosis: Yes dyspnea with minimal exertion Exercises Quad Sets: x10 BLE Heelslides: supine x10 BLE Gluteal Sets: x10 Hip Adduction: seated isometric x10 BLE Ankle Pumps: seated heel /toe raises x10 BLE Other exercises Other exercises?: No Outcome Measures AM-PAC How much HELP from another person do you currently need Turning from your back to your side while in a flat bed without using bedrails?: None Moving from lying on your back to sitting on the side of a flat bed without using bedrails?: A Little Moving to and from a bed to a chair (including a wheelchair)?: A Little Standing up from a chair using your arms (wheelchair or bedside chair)?: None Walking in a hospital room?: None Stair climbing assessed?: No AM-PAC Inpatient Mobility Raw Score (No Stairs) : 18 JH-HLM JH-HLM Scale: Walked 10 steps or more (i.e. walked to restroom) Plan Pt would benefit from skilled acute PT services to address Strengthening, ROM, Gait Training, Balance Training, Self-Care/ADL Training, Functional Mobility Training, Endurance Training, Safety Education and Training, Stair Training, Equipment Evaluation/Education, and Patient/Caregiver Training. Frequency: 3x/weekfor 4 weeks Barriers: Decreased endurance and Limited family support Safety/Education Safety Safety Devices in place: call light within reach, left in bed, bed alarm in place, gait belt, and patient at risk for falls Restraints: N/A Education Education Given To: patient Education Provided: PT Role, Plan of Care, Discharge Recommendations, Benefits of Increasing Activity, and Breathing Techniques Education Method: Verbal Barriers to Learning: None Education Outcome: Verbalized Understanding and Continued Education Needed Goals Patient Stated Goal: . Encounter Problems Encounter Problems (Active) Balance Patient will maintain dynamic standing balance for 3-4 minutes with supervision in order to demonstrate decreased risk of falling. Start: 05/28/25 Expected End: 06/25/25 Mobility Patient will ambulate 200 feet with modified independence and least restrictive device in order to improve safety and independence with mobility. Start: 05/28/25 Expected End: 06/25/25 Patient will ascend and descend 4 stairs with one railing and supervision in order to safely negotiate home. Start: 05/28/25 Expected End: 06/25/25 Transfers Patient will perform bed mobility with modified independence in order to improve independence and prepare for out of bed mobility. Start: 05/28/25 Expected End: 06/25/25 Patient will complete sit to stand transfer with modified independence to LRD in order to improve safety and prepare for out of bed mobility. Start: 05/28/25 Expected End: 06/25/25 Therapy Time Individual Co-Treatment Co-Evaluation Time In 1023 Time Out 1057 Minutes 34 Timed Code Treatment Minutes: 10 Minutes (TP) Variance: 4 (pt on toilet) Brittney Mishra, PT Patient's Physical Therapy Plan of Care supervision is transferred to a [facility] Physical Therapist. Goals and/or treatment plan was established in collaboration with patient/family/other representatives. [1] Past Medical History: Diagnosis Date Alcohol consumption heavy 09/10/2015 stopped 3w ago Asthma (HHS/HCC) Atrial fibrillation (HCC) CHF (congestive heart failure) (HCC) 01/31/2016 COPD (chronic obstructive pulmonary disease) (HCC) 09/10/2015 Cor, pulmonale, acute (HCC) Deep venous thrombosis (HCC) 02/2016 Depression Hx of blood clots Obesity 09/10/2015 DELORES (obstructive sleep apnea) Pulmonary embolus (HCC) 6 16 Raynaud phenomenon 09/10/2015 Smoker 09/10/2015 [2] Past Surgical History: Procedure Laterality Date ABDOMINAL SURGERY BRONCHOSCOPY 02/25/2020 BRONCHOSCOPY (HISTORICAL) 02/25/2020 CARDIAC ELECTROPHYSIOLOGY PROCEDURE N/A 05/25/2025 Performed by Karthik Mendoza MD at [facility] Cardiac Cath/EP Lab COLONOSCOPY 10/27/[address] CHEST ANGIOGRAM W AND/OR WO IV CONTRAST 07/12/2022 CT CHEST ANGIOGRAM W AND/OR WO IV CONTRAST 07/12/2022 [facility] CT IMAGING FINGER AMPUTATION Left HERNIA REPAIR NOSE SURGERY PACEMAKER (HISTORICAL) [facility] Cardiology /Electrophysiology Progress Note HPI / Interval History: Krystina Pearson is a 69 yo male with past medical history of HTN, alcohol abuse, tobacco abuse, COPD (home O2), HFrEF (21%) 2/2 NICM s/p RIDES SUPERVISOR implant (), and permanent atrial fibrillation on Eliquis who presented to [facility] 05/20/25 with respiratory distress. Upon presentation he was febrile, hyponatremic with concern for septic shock. Admitted to ICU for further management given intubation for left lower lobe PNA and alcohol withdrawal symptoms. MRSA bacteremia / Ags + PNA . TTE completed 05/20/25 showing no obvious signs of vegetation and an improved EF to ~ 50%. Given continued positive blood cultures, device extraction discussed. Patient is now status post laser lead extraction with removal of RA lead, RV ICD lead, coronary sinus lead and ICD generator 05/25/[address] Mendoza. Today patient is seen up on side of bed, states he had better sleep last night. He denies chest pain, shortness of breath, dizziness, lightheadedness, palpitation, syncope, or near syncope. Has been up ambulating in room / to bathroom with minimal symptoms. Assessment/Plan MRSA bacteremia with 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 in place: initial cultures positive for MRSA bacteremia, repeat cultures 05/24 negative to date. TTE completed on admission showed no obvious source of vegetation -status post device removal 05/25/25 -life vest not needed in the setting of improved EF, nonischemic etiology -ID following recommending PICC line / IV antibiotics / SNF placement HFimpEF: secondary to NICM , EF noted this admission 50% improved from 21% . Weight up about 12 lbs since admission, another 4 lbs overnight. I&O net positive. Currently wearing 4L NC (home O2 - 2L) Patient appears euvolemic despite previous statements. He denies any heart failure symptoms. -GDMT includes: metoprolol XL 50 mg BID, losartan 25 mg daily, spironolactone 25 mg daily, and farxiga 5 mg daily -resume diuretic - torsemide 40 mg BID (hyponatremia should improve) -daily BMP , goal K > 4.0 goal Mag > 2.0 -- replete as needed -daily standing weights -close outpatient follow up with cardiology Permanent atrial fibrillation: rate controlled and asymptomatic , frequent PVC's -continue metoprolol XL 50 mg BID for rate control (up titrate as tolerated to home dosing 100 mg BID) -continue Eliquis 5 mg BID for stroke prevention EP will sign off at this time. Outpatient follow up has been arranged. Medications: Scheduled Meds[1] Infusion Medications: Continuous Meds[2] Physical Examination: Vitals: 05/27/25 2327 05/28/25 0410 05/28/25 0500 05/28/25 0755 BP: 148/74 (!) 165/88 137/81 BP Location: Right arm Right arm Left arm Patient Position: Sitting Sitting Sitting Pulse: 54 66 71 Resp: 20 20 17 Temp: 37 C (98.6 F) 36.2 C (97.1 F) 36.4 C (97.5 F) TempSrc: Temporal Temporal Temporal SpO2: 97% 92% 98% Weight: 186 lb 6.4 oz (84.6 kg) Height: PF: Intake/Output Summary (Last 24 hours) at 2025 0857 Last data filed at 05/27/2025 1728 Gross per 24 hour Intake 840 ml Output -- Net 840 ml Patient Vitals for the past 168 hrs: Weight Weight Method 05/28/25 0500 186 lb 6.4 oz (84.6 kg) Standing scale 05/27/25 0302 182 lb 3.2 oz (82.6 kg) Standing scale 05/26/25 1336 179 lb (81.2 kg) Standing scale 05/26/25 1127 176 lb (79.8 kg) -- 05/26/25 0500 176 lb 5.9 oz (80 kg) Bed scale 05/25/25 1617 170 lb (77.1 kg) -- 05/22/25 0500 170 lb 10.2 oz (77.4 kg) Bed scale 05/21/25 0904 174 lb (78.9 kg) -- Physical Exam Constitutional: General: He is not in acute distress. Appearance: Normal appearance. Cardiovascular: Rate and Rhythm: Normal rate and regular rhythm. Pulses: Normal pulses. Heart sounds: Normal heart sounds. Pulmonary: Effort: Pulmonary effort is normal. Breath sounds: Wheezing present. Comments: Expiratory wheeze Musculoskeletal: General: Normal range of motion. Right lower leg: No edema. Left lower leg: No edema. Skin: General: Skin is warm and dry. Neurological: General: No focal deficit present. Mental Status: He is alert and oriented to person, place, and time. Psychiatric: Mood and Affect: Mood normal. Behavior: Behavior normal. Laboratory Tests: TROPONIN I, CONVENTIONAL SENSITIVITY CK Date Value Ref Range Status 05/21/2025 86 30 - 185 U/L Final 11/01/2024 150 30 - 185 U/L Final 02/14/2024 110 30 - 170 U/L Final 12/30/2022 223 (H) 30 - 170 U/L Final 12/29/2022 448 (H) 30 - 170 U/L Final CKMB Date Value Ref Range Status 02/14/2024 4.1 0.0 - 4.4 ng/mL Final TROPONIN I Date Value Ref Range Status 02/14/2024 0.025 <0.034 ng/mL Final 02/13/2024 0.026 <0.034 ng/mL Final 02/13/2024 0.023 <0.034 ng/mL Final 11/12/2023 0.016 <0.034 ng/mL Final 11/11/2023 0.017 <0.034 ng/mL Final TROPONIN I, HIGH SENSITIVITY Troponin HS Serial Baseline Date Value Ref Range Status 05/20/2025 61 (H) <=35 ng/L Final Comment: In individuals presenting with symptoms > 2h, a baseline troponin <= 5 ng/L suggests acute cardiac injury is unlikely and further serial testing is generally not indicated. 11/01/2024 16 <=35 ng/L Final Comment: In individuals presenting with symptoms > 2h, a baseline troponin <= 5 ng/L suggests acute cardiac injury is unlikely and further serial testing is generally not indicated. 09/10/2024 37 (H) <=35 ng/L Final 08/19/2024 37 (H) <=35 ng/L Final 2h Troponin HS (Serial 2nd Troponin) Date Value Ref Range Status 05/21/2025 92 (H) <=35 ng/L Final Comment: 2h troponin (2nd troponin) samples collected between 1h 40 min and 2h and 20 min of the baseline collection time can be utilized to interpret delta troponins as per [employer] algorithms. Samples collected outside this timeframe need to be interpreted clinically. Rising or falling troponin delta greater than 15 ng/L as compared to baseline value is significant for acute cardiac injury. 11/01/2024 20 <=35 ng/L Final Comment: Rising or falling troponin delta between 2 - 15 ng/L as compared to baseline value requires a 3rd serial troponin 09/10/2024 38 (H) <=35 ng/L Final 08/19/2024 35 <=35 ng/L Final Absolute Delta (2nd - Baseline Troponin) Date Value Ref Range Status 09/10/2024 1 <=2 ng/L Final Comment: This specimen was collected more than 20 minutes away from the 2 hour target. Use of this delta with the 2 hour troponin algorithm is not recommended, individualized clinical assessment is needed. A troponin delta greater than or equal to 15 ng/L is significant for acute cardiac injury. Values less than 15 but greater than 2 are an intermediate change requiring a 3rd serial troponin to be drawn. Values less than or equal to 2 indicate acute cardiac injury is not likely, see external algorithms for further clinical guidance. 08/19/2024 -2 <=2 ng/L Final Comment: A troponin delta greater than or equal to 15 ng/L is significant for acute cardiac injury. Values less than 15 but greater than 2 are an intermediate change requiring a 3rd serial troponin to be drawn. Values less than or equal to 2 indicate acute cardiac injury is not likely, see external algorithms for further clinical guidance. 4h Troponin HS (Serial 3rd Troponin) Date Value Ref Range Status 11/01/2024 24 <=35 ng/L Final Comment: Rising or falling troponin delta between 2 - 15 ng/L as compared to 2h troponin value requires further evaluation. No results found for: "TROPDELTSEC" Recent Labs 05/26/2522905/27/2531105/28/25 0335 NA 132* 130* 128* K 4.1 4.3 4.3 CL 100 101 99 CO2 23 24 BUN 16 13 13 CREATININE 0.78 0.78 0.74 Recent Labs 05/26/2522905/27/252 05/28/25 0335 WBC 9.4 10.1 9.4 HGB 12.7* 11.7* 10.7* HCT 37.7* 34.6* 31.5* MCV 90.6 88.9 90.3 PLT 158 175 194 Lab Results Component Value Date TSH 0.57 05/20/2025 05/20/25 TRANSTHORACIC ECHOCARDIOGRAM (TTE) LIMITED (CONTRAST/BUBBLE/3D PRN) 05/26/2025 11:51 AM (Final) Interpretation Summary Left Ventricle: Left ventricle is moderately dilated. Severely reduced left ventricular systolic function. Severe global hypokinesis present. Right Ventricle: Right ventricle is severely dilated. Severely reduced systolic function. Tricuspid Valve: Moderate (2+) regurgitation. Moderately elevated RVSP. RVSP is 44 mmHg. Right Atrium: Right atrium is severely dilated. Signed by: Liam Stroud MD on 05/26/2025 11:51 AM Other reports reviewed: Cardiac Tests: ECG 05/20/25 Atrial fibrillation 65 bpm Tracing reviewed. Telemetry findings reviewed: atrial fibrillation 55-70 bpm, frequent PVC's, 8 beat run NSVT this AM [1] apixaban, 5 mg, Oral, BID chlorhexidine, , Topical, Daily collagenase, , Topical, Daily dapagliflozin, 5 mg, Oral, Daily folic acid, 1 mg, Oral, Daily losartan, 25 mg, Oral, Daily metoprolol succinate XL, 50 mg, Oral, BID mometasone-formoterol, 2 puff, Inhalation, BID montelukast, 10 mg, Oral, Nightly pantoprazole (ProtoNix) 40 mg in sodium chloride (PF) 0.9 % 10 mL injection, 40 mg, IntraVENous, Daily rosuvastatin, 40 mg, Oral, Daily sertraline, 100 mg, Oral, Daily sodium chloride 0.9%, 5-40 mL, IntraCATHeter, q8h sodium phosphate in D5, 20 mmol, IntraVENous, Once spironolactone, 25 mg, Oral, Daily thiamine, 100 mg, Oral, Daily tiotropium, 2 puff, Inhalation, Daily [Held by provider] torsemide, 40 mg, Oral, Daily vancomycin, 1,000 mg, IntraVENous, q12h [2] Images from the original note were not included. [facility] - Infectious Diseases Attending Progress Note Reason for Consult: Bacteremia Subjective/Interval Events: Patient examined at bedside. Patient denies new symptoms. Patient stated he is feeling well and has no questions at this time. Objective: Vitals: Patient Vitals for the past 24 hrs: BP Temp Temp src Pulse Resp SpO2 Weight 05/28/25 0755 137/81 36.4 C (97.5 F) Temporal 71 17 98 % -- 05/28/25 0500 -- -- -- -- -- -- 186 lb 6.4 oz (84.6 kg) 05/28/25 0410 (!) 165/88 36.2 C (97.1 F) Temporal 66 20 92 % -- 05/27/257 148/74 37 C (98.6 F) Temporal 54 20 97 % -- 05/27/25 1938 120/73 36.3 C (97.4 F) Temporal 65 20 92 % -- 05/27/25 1545 123/76 36.1 C (96.9 F) Temporal 64 17 95 % -- Physical Exam HENT: Head: Normocephalic and atraumatic. Mouth/Throat: Pharynx: Oropharynx is clear. Eyes: Conjunctiva/sclera: Conjunctivae normal. Cardiovascular: Rate and Rhythm: Normal rate and regular rhythm. Pulses: Normal pulses. Heart sounds: Normal heart sounds. No murmur heard. Pulmonary: Effort: Pulmonary effort is normal. No respiratory distress. Breath sounds: Wheezing present. Abdominal: General: Bowel sounds are normal. Palpations: Abdomen is soft. Tenderness: There is no abdominal tenderness. There is no guarding. Musculoskeletal: General: No tenderness. Right lower leg: No edema. Left lower leg: No edema. Skin: General: Skin is warm. Neurological: General: No focal deficit present. Mental Status: He is alert. Mental status is at baseline. Psychiatric: Mood and Affect: Mood normal. Behavior: Behavior normal. Labs: Lab Results Component Value Date/Time NA 128 (L) 2025 0335 K 4.3 2025 0335 CL 99 2025 0335 CO2 24 2025 0335 CO2 36 (H) 10/14/2024 1440 BUN 13 2025 0335 BUN 20 10/14/2024 1440 CREATININE 0.74 2025 0335 CREATININE 0.60 (L) 10/14/2024 1440 GLUCOSE 112 2025 0335 GLUCOSE 110 (H) 10/14/2024 1440 CALCIUM 8.1 (L) 2025 0335 CALCIUM 9.9 10/14/2024 1440 PROT 5.6 (L) 05/26/2025 0230 BILITOT 0.4 05/26/2025 0230 ALKPHOS 92 05/26/2025 0230 AST 97 (H) 05/26/2025 0230 ALT 75 (H) 05/26/2025 0230 PROCAL 0.51 (H) 05/20/2025 2220 PROCAL 0.04 08/19/2024 1947 PROCAL 0.18 (H) 11/11/2023 2351 Lab Results Component Value Date/Time WBC 9.4 2025 0335 HGB 10.7 (L) 2025 0335 HGB 13.9 05/22/2025 0326 HCT 31.5 (L) 2025 0335 PLT 194 2025 0335 GRANULOCYTES 70.7 08/25/2021 0504 LYMPHOPCT 7.7 (L) 2025 0335 LYMPHOPCT 0 (L) 05/20/2025 2220 MONOPCT 10.2 2025 0335 MONOPCT 0 (L) 05/20/2025 2220 LABEOS 3.6 08/25/2021 0504 BASOPCT 0.3 2025 033 NEUTROABS 7.5 2025 0335 Micro: 05/24 Blood Cx 2/2 no growth at 4 days 05/22 Blood Cx 2/2 S aureus 05/21 Respiratory culture elsa, S pneumo 05/21 Pneumonia PCR S pneumo 05/20 Legionella urine antigen negative, Pneumococcus urine antigen positive 05/20 4plex negative 05/20 RPP negative 05/20 Blood Cx 2/2 MRSA LDA: PIV Imagin/24 CXR Impression: Frontal view the chest compared to previous study from 05/23/2025. Since last exam the right cardiac pacemaker and leads have been removed with no residual component seen. Slightly increased right lung base atelectatic changes since last exam 05/25 [place]LIN Left Ventricle: Left ventricle size is normal. Normal wall thickness. Mildly reduced left ventricular systolic function. The EF by visual approximation is 50%. Mild global hypokinesis present. Right Ventricle: Right ventricle is moderately dilated. Mildly reduced systolic function. Right Atrium: Right atrium is severely dilated. Pericardium: Small (<1 cm) pericardial effusion, new following lead extraction. Aorta: Normal sized ascending aorta. Mildly dilated sinuses of Valsalva. Sinuses of Valsalva diameter is 4.4 cm. Normal sized STJ. There is mild atherosclerosis in the descending aorta. No significant valvular abnormalities. 05/23 CXR IMPRESSION: Atelectasis at the lung bases. Chronic obstructive pulmonary disease 05/21 TTE Impression Left Ventricle: Left ventricle is mildly dilated. Mildly increased wall thickness. Low normal left ventricular systolic function. EF by 2D Simpsons Biplane is 50%. Global longitudinal strain is reduced with a value of -13.3%. See diagram for wall motion findings. Indeterminate diastolic function due to atrial fibrillation. Right Ventricle: Right ventricle is mildly dilated. ICD lead present in the right ventricle. Normal systolic function. Left Atrium: Left atrium size is severely increased (LA volume index >48 mL/m2).LA Vol Index is 57 ml/m2. Right Atrium: Right atrium is severely dilated. No significant valvular abnormalities. In comparison to the previous study on 11/12/2023, LVEF has improved. 05/20 CT c/a/p Infiltrate in the left posterior lung base suspicious for pneumonia. Again seen are compression fractures of T6-T8. Interval development of a compression fracture of T9. 05/20 CT head 1. No acute intracranial findings. 2. Probable chronic ischemic and atrophic changes. Antibiotics: 05/21- IV Vancomycin 05/21- 05/27 Ceftriaxone Assessment: MRSA bacteremia; Blood Cx set #3 NGTD (96 hrs) S pneumo pneumonia HF/NICM s/p 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 S/p MERLIN and 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evice extraction Septic shock, resolved VIMAL, resolved COPD Alcohol abuse and Tobacco use History of non compliance Plan: Continue Vancomycin Follow up repeat blood cultures (NG 96 hrs) Continue Vancomycin upon discharge PT/OT recommending SNF ID will continue to follow. Toni Meek MS4 Cosigned by Rachael Ngo MD at 2025 2:48 PM EDT Associated attestation - Rachael Ngo MD - 2025 2:48 PM EDT Pt discussed on ID consultation rounds. PT recommending SNF. Awaiting OT assessment. Pt ok with going to a SNF on discharge. OPAT scanned under the Media tab for vancomycin; ends 07/05. Ok for PICC. Pt here through the weekend. Continue vanc. Please page this weekend if questions. Rachael Ngo MD Med Team Progress Note Krystinafilippo Markham : 1955(70 y.o.) Date: 2025 Med Team: Jourdan Attending: Dr. Wilkinson Chief Complaint: Acute metabolic encephalopathy Brief Hospital Course: Subjective: - No acute events overnight. Vital stable overnight, the patient placed on 4 L nasal cannula this morning from 2 L prior. Currently satting 90%. Other vital stable this morning. Patient seen eval at bedside. He says he feels well, denies acute complaints like chest pain or SOB. PRN meds used in last 24hrs: None Agree with above Review of Systems All other systems reviewed and are negative. Scheduled Meds:Scheduled Meds[1] Continuous Infusions:Continuous Meds[2] Objective: BP 137/81 (BP Location: Left arm, Patient Position: Sitting) Pulse 71 Temp 36.4 C (97.5 F) (Temporal) Resp 17 Ht 5' 8" (1.727 m) Wt 186 lb 6.4 oz (84.6 kg) SpO2 98% PF 44 L/min BMI 28.34 kg/m Physical Exam Vitals and nursing note reviewed. Constitutional: General: He is not in acute distress. Appearance: Normal appearance. HENT: Head: Normocephalic and atraumatic. Nose: No rhinorrhea. Mouth/Throat: Mouth: Mucous membranes are moist. Pharynx: Oropharynx is clear. No oropharyngeal exudate or posterior oropharyngeal erythema. Eyes: Pupils: Pupils are equal, round, and reactive to light. Cardiovascular: Rate and Rhythm: Normal rate and regular rhythm. Pulses: Normal pulses. Heart sounds: Normal heart sounds. No murmur heard. No friction rub. No gallop. Pulmonary: Effort: Pulmonary effort is normal. No respiratory distress. Breath sounds: Rhonchi present. No wheezing or rales. Comments: Rhoncorous breath sounds. Abdominal: General: Abdomen is flat. There is no distension. Palpations: Abdomen is soft. Tenderness: There is no abdominal tenderness. Musculoskeletal: Right lower leg: No edema. Left lower leg: No edema. Skin: General: Skin is warm and dry. Capillary Refill: Capillary refill takes less than 2 seconds. Findings: No rash. Neurological: General: No focal deficit present. Mental Status: He is alert and oriented to person, place, and time. Mental status is at baseline. Psychiatric: Mood and Affect: Mood normal. Behavior: Behavior normal. Select Recent Labs BMP: Recent Labs 05/26/2522905/27/2531105/28/25 033 NA 132* 130* 128* K 4.1 4.3 4.3 CL 100 101 99 CO2 23 24 BUN 16 13 13 CREATININE 0.78 0.78 0.74 CALCIUM 8.8 8.5* 8.1* MG 1.8 1.6 1.5* PHOS 2.9 1.9* 2.2* LFTs: Recent Labs 05/26/25229 AST 97* ALT 75* PROT 5.6* ALBUMIN 2.5* BILITOT 0.4 ALKPHOS 92 Glucose: Recent Labs 05/26/2522905/27/2531105/28/25 033 GLUCOSE 81* 103 112 Procal: No results for input(s): "PROCAL" in the last 72 hours. CBC: Recent Labs 05/26/2522905/27/2531105/28/25334 WBC 9.4 10.1 9.4 HGB 12.7* 11.7* 10.7* HCT 37.7* 34.6* 31.5* PLT 158 175 194 MCV 90.6 88.9 90.3 RDW 12.9 12.9 13.0 ABGs: No results for input(s): "PHART", "XGB2OJP", "PO2ART", "ICK3CXT", "SO2ART", "I1MJKUXC" in the last 72 hours. Lactic Acid: No results for input(s): "LACTATE" in the last 72 hours. INR: No results for input(s): "INR" in the last 72 hours. Cardiac Injury Profile: No results for input(s): "CKTOTAL", "CKMB", "TROPONINI", "TROPHSBASE", "TROPHS2", "BNP" in the last 72 hours. 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%) A-fib on Eliquis History of PE and DVT Ventricular tachycardia -S/p 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 removal on 05/22/2025 -Continue Crestor, metoprolol succinate, losartan, spironolactone -Continue Eliquis 5 mg twice daily -Resume Farxiga 5 mg daily on discharge -Patient's EF much improved now, unlikely to need life vest Agree with above Staph bacteremia Left lower lobe pneumonia -ID following, continue bank with final dose 07/05/2025 -S/p course ceftriaxone with final dose 05/27/2025 -Patient okay for PICC line to go to SNF given blood cultures negative at 72 hours; plan for PICC today Agree with above. Patient expressing preference now to go home instead of SNF. Will reach out to ID today to see if dalbavancin is an option or not. He understand that if it is not, his only option is SNF. PICC line not placed today per PICC team as plan was not yet solidified. If plan is for SNF and vanc we will re-consult them. Chronic respiratory failure 2/2 COPD -Patient currently on 4 L oxygen by nasal cannula, satting 98% -Home dose is 2 L -S/p prednisone 40 mg x 3 days completed 05/25/2025 -Continue Dulera, Singulair, Spiriva Agree with above Hyponatremia -Patient has history of chronic alcohol use -Sodium 128 on 2025 -Continue to monitor Agree with above, this is chronic, sodium seems to be hovering between 128-132. Resolved Problems: #Septic shock secondary to staph bacteremia and L lower lobe pneumonia - Leukocytosis resolved - Vital signs stable, within normal limits #VIMAL #Acute respiratory failure 2/2 L lower lobe pneumonia - Patient currently stable on home dose of oxygen #Acute encephalopathy Chronic Stable Problems and Follow Up Items: None Dispo and Barriers to Discharge: Pending recommendations from cardiology for discharge - Goals of Care: FULL CODE - DVT Prophylaxis: SCD's or Sequential Compression Device - GI Prophylaxis: Protonix daily - Diet: NPO On 05/28/25 I personally examined the patient and reviewed the case with the resident and or med student. I have personally taken a history, examined the patient, and performed the associated medical decision making activities. I have reviewed & verified the attested documentation. Unless otherwise noted below, this documentation reflects the history, physical exam, and medical decision making that I performed myself. I agree with the current plan of care including the workup, evaluation, management, and diagnosis. Care plan has been discussed. The above documentation has been reviewed and edited as needed to reflect the findings of my evaluation. Attending comments are in bold. 1. Complexity of problems addressed: Bacteremia requiring IV antibiotics 3. Drug therapy requiring intensive monitoring for toxicity: Vancomycin - monitoring serum creatinine [1] apixaban, 5 mg, Oral, BID chlorhexidine, , Topical, Daily collagenase, , Topical, Daily dapagliflozin, 5 mg, Oral, Daily folic acid, 1 mg, Oral, Daily losartan, 25 mg, Oral, Daily magnesium sulfate, 2,000 mg, IntraVENous, Once metoprolol succinate XL, 50 mg, Oral, BID mometasone-formoterol, 2 puff, Inhalation, BID montelukast, 10 mg, Oral, Nightly pantoprazole (ProtoNix) 40 mg in sodium chloride (PF) 0.9 % 10 mL injection, 40 mg, IntraVENous, Daily rosuvastatin, 40 mg, Oral, Daily sertraline, 100 mg, Oral, Daily sodium chloride 0.9%, 5-40 mL, IntraCATHeter, q8h sodium phosphate in D5, 20 mmol, IntraVENous, Once spironolactone, 25 mg, Oral, Daily thiamine, 100 mg, Oral, Daily tiotropium, 2 puff, Inhalation, Daily [Held by provider] torsemide, 40 mg, Oral, Daily vancomycin, 1,000 mg, IntraVENous, q12h [2] Pharmacy to Dose Vancomycin - Progress Note Lab Results Component Value Date CREATININE 0.74 2025 BUN 13 2025 WBC 9.4 2025 VANCOTROUGH 25.9 2025 Doses, serum creatinine, and vancomycin levels interfaced automatically to [employer] and data has been analyzed and interpreted. Infectious Diagnosis: Pneumonia (CAP) Est CrCl: >100 mL/min (Cockcroft-Gault) Assessment: Current regimen vancomycin 1000 mg every 12 hours (12 mg/kg) Predicted AUC = 562 mg/L*hr (goal 400-600 mg/L*hr) PAUC = >95% (probability that AUC is >400 mg/L*hr) Pconc = 19% (probability that Ctrough is above 20 mcg/mL (toxicity)) Plan: Is the current dose therapeutic? [x] Yes - obtain next level on 06/04 unless predicted AUC is sub-/supra-therapeutic or change in serum creatinine. Trend serum creatinine. Trend AUC using Bayesian Modeling. Orders placed. DATE: 05/28/25 TIME: 7:38 AM Lelo Duran RPh Clinical Pharmacist Available via Secure Chat Images from the original note were not included. [facility] - Infectious Diseases Attending Progress Note Reason for Consult: Bacteremia Subjective/Interval Events: Patient examined at bedside. No new symptoms at this time. Stated he is at his baseline shortness of breath state. Patient has no questions. Objective: Vitals: Patient Vitals for the past 24 hrs: BP Temp Temp src Pulse Resp SpO2 Height Weight 05/27/25 0757 141/71 36.8 C (98.2 F) Temporal -- 16 92 % -- -- 05/27/25 0324 153/64 36.4 C (97.5 F) Temporal 64 16 97 % -- -- 05/27/25 0302 -- -- -- -- -- -- -- 182 lb 3.2 oz (82.6 kg) 05/26/25 2240 125/72 36.2 C (97.2 F) Temporal 78 16 93 % -- -- 05/26/25 1915 126/75 36.8 C (98.3 F) Temporal 96 16 92 % -- -- 05/26/25 1511 94/58 36.2 C (97.2 F) Temporal 67 18 93 % -- -- 05/26/25 1336 127/75 36.7 C (98 F) Temporal 55 20 90 % -- 179 lb (81.2 kg) 05/26/25 1207 -- -- -- -- -- -- 5' 8" (1.727 m) -- 05/26/25 1127 -- -- -- -- -- -- 5' 8" (1.727 m) 176 lb (79.8 kg) 05/26/25 1100 -- -- -- 81 23 -- -- -- 05/26/25 1000 135/84 -- -- 72 20 100 % -- -- 05/26/25 0900 (!) 131/112 -- -- 84 20 (!) 87 % -- -- Physical Exam Constitutional: Appearance: Normal appearance. HENT: Head: Normocephalic and atraumatic. Mouth/Throat: Pharynx: Oropharynx is clear. Eyes: Conjunctiva/sclera: Conjunctivae normal. Cardiovascular: Rate and Rhythm: Normal rate and regular rhythm. Pulses: Normal pulses. Heart sounds: Normal heart sounds. No murmur heard. Pulmonary: Effort: Pulmonary effort is normal. No respiratory distress. Breath sounds: Wheezing present. Neurological: Mental Status: He is alert. Labs: Lab Results Component Value Date/Time NA 130 (L) 05/27/2025 0312 K 4.3 05/27/2025 0312 CL 101 05/27/2025 0312 CO2 23 05/27/2025 0312 CO2 36 (H) 10/14/2024 1440 BUN 13 05/27/2025 0312 BUN 20 10/14/2024 1440 CREATININE 0.78 05/27/2025 0312 CREATININE 0.60 (L) 10/14/2024 1440 GLUCOSE 103 05/27/2025 0312 GLUCOSE 110 (H) 10/14/2024 1440 CALCIUM 8.5 (L) 05/27/2025 0312 CALCIUM 9.9 10/14/2024 1440 PROT 5.6 (L) 05/26/2025 0230 BILITOT 0.4 05/26/2025 0230 ALKPHOS 92 05/26/2025 0230 AST 97 (H) 05/26/2025 0230 ALT 75 (H) 05/26/2025 0230 PROCAL 0.51 (H) 05/20/2025 2220 PROCAL 0.04 08/19/2024 1947 PROCAL 0.18 (H) 11/11/2023 2351 Lab Results Component Value Date/Time WBC 10.1 05/27/2025 0312 HGB 11.7 (L) 05/27/2025 0312 HGB 13.9 05/22/2025 0326 HCT 34.6 (L) 05/27/2025 0312 PLT 175 05/27/2025 0312 GRANULOCYTES 70.7 08/25/2021 0504 LYMPHOPCT 8.7 (L) 05/27/2025 0312 LYMPHOPCT 0 (L) 05/20/2025 2220 MONOPCT 11.6 05/27/2025 0312 MONOPCT 0 (L) 05/20/2025 2220 LABEOS 3.6 08/25/2021 0504 BASOPCT 0.3 05/27/2025 0312 NEUTROABS 7.8 (H) 05/27/2025 0312 Micro: 05/24 Blood Cx 2/2 in process 05/22 Blood Cx 2/2 S aureus 05/21 Respiratory culture elsa, S pneumo 05/21 Pneumonia PCR S pneumo 05/20 Legionella urine antigen negative, Pneumococcus urine antigen positive 05/20 4plex negative 05/20 RPP negative 05/20 Blood Cx 2/2 MRSA LDA: PIV Imagin/24 CXR Impression: Frontal view the chest compared to previous study from 05/23/2025. Since last exam the right cardiac pacemaker and leads have been removed with no residual component seen. Slightly increased right lung base atelectatic changes since last exam 05/25 MERLIN Left Ventricle: Left ventricle size is normal. Normal wall thickness. Mildly reduced left ventricular systolic function. The EF by visual approximation is 50%. Mild global hypokinesis present. Right Ventricle: Right ventricle is moderately dilated. Mildly reduced systolic function. Right Atrium: Right atrium is severely dilated. Pericardium: Small (<1 cm) pericardial effusion, new following lead extraction. Aorta: Normal sized ascending aorta. Mildly dilated sinuses of Valsalva. Sinuses of Valsalva diameter is 4.4 cm. Normal sized STJ. There is mild atherosclerosis in the descending aorta. No significant valvular abnormalities. 05/23 CXR IMPRESSION: Atelectasis at the lung bases. Chronic obstructive pulmonary disease 05/21 TTE Impression Left Ventricle: Left ventricle is mildly dilated. Mildly increased wall thickness. Low normal left ventricular systolic function. EF by 2D Simpsons Biplane is 50%. Global longitudinal strain is reduced with a value of -13.3%. See diagram for wall motion findings. Indeterminate diastolic function due to atrial fibrillation. Right Ventricle: Right ventricle is mildly dilated. ICD lead present in the right ventricle. Normal systolic function. Left Atrium: Left atrium size is severely increased (LA volume index >48 mL/m2).LA Vol Index is 57 ml/m2. Right Atrium: Right atrium is severely dilated. No significant valvular abnormalities. In comparison to the previous study on 11/12/2023, LVEF has improved. 05/20 CT c/a/p Infiltrate in the left posterior lung base suspicious for pneumonia. Again seen are compression fractures of T6-T8. Interval development of a compression fracture of T9. 05/20 CT head 1. No acute intracranial findings. 2. Probable chronic ischemic and atrophic changes. Antibiotics: 05/21- IV Vancomycin 05/21- Ceftriaxone Assessment: MRSA bacteremia; Blood Cx set #3 NGTD (48 hrs) S pneumo pneumonia HF/NICM s/p 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 S/p MERLIN and 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evice extraction Septic shock, resolved VIMAL, resolved COPD Alcohol abuse and Tobacco use History of non compliance Plan: Continue Vancomycin Last Day of Ceftriaxone today (05/27) Follow up repeat blood cultures (NG 48 hrs) Possible dalbavancin at discharge ID will continue to follow. Toni Meek MS4 Cosigned by Rachael Ngo MD at 05/27/2025 4:14 PM EDT Associated attestation - Rachael Ngo MD - 05/27/2025 4:14 PM EDT Pt seen, discussed and examined on ID consultation rounds. Vitals reviewed. Pt afebrile. 05/24 blood cultures remain negative. Continue vanc; ends 07/05. Ceftriaxone ends 05/27. Pt ok for PICC if going to a SNF on discharge. Pt is not a good candidate for a PICC in the community. My office is looking into a PA for dalbavancin if pt goes home. Following. Rachael Ngo MD [facility] Cardiology /Electrophysiology Progress Note HPI / Interval History: Krystina Pearson is a 69 yo male with past medical history of HTN, alcohol abuse, tobacco abuse, COPD (home O2), HFrEF (21%) 2/2 NICM s/p RIDES SUPERVISOR implant (), and permanent atrial fibrillation on Eliquis who presented to [facility] 05/20/25 with respiratory distress. Upon presentation he was febrile, hyponatremic with concern for septic shock. Admitted to ICU for further management given intubation for left lower lobe PNA and alcohol withdrawal symptoms. MRSA bacteremia / Ags + PNA . TTE completed 05/20/25 showing no obvious signs of vegetation and an improved EF to ~ 50%. Given continued positive blood cultures, device extraction discussed. Patient is now status post laser lead extraction with removal of RA lead, RV ICD lead, coronary sinus lead and ICD generator 05/25/[address] Mendoza. Today patient is seen up on side of bed without complaint. Left upper chest dressing is clean dry intact without hematoma. Mild ecchymosis noted. Right groin is clean dry intact without ecchymosis or hematoma. Denies pain at either site. He denies chest pain, shortness of breath, dizziness, lightheadedness, palpitation, or near syncope. Assessment/Plan MRSA bacteremia with 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 in place: initial cultures positive for MRSA bacteremia, repeat cultures 05/24 negative to date. TTE completed on admission showed no obvious source of vegetation -status post device removal 05/25/25 -ID following recommending PICC line and antibiotics at discharge HFimpEF: secondary to NICM , EF noted this admission 50% improved from 21% . Weight up about 8 lbs since admission. I&O net positive. He appears euvolemic, declines any heart failure symptoms at this time. -GDMT includes: metoprolol XL 50 mg BID, losartan 25 mg daily, spironolactone 25 mg daily, and Farxiga 5 mg daily -K 4.3 / renal function stable / hyponatremia 130 -- continue to hold torsemide given hyponatremia (home dose 40 mg BID) likely can reinitiate lower dose prior to discharge -HF follow up has been arranged for next week / repeat BMP prior Permanent atrial fibrillation: rate controlled and asymptomatic , with frequent PVC's -continue metoprolol XL 50 BID for rate control (home dose 100 mg BID) increase as tolerated to home dosing -resume Eliquis 5 mg BID for stroke prevention tonight 05/27/25 Medications: Scheduled Meds[1] Infusion Medications: Continuous Meds[2] Physical Examination: Vitals: 05/26/25 2240 05/27/25 0302 05/27/25 0324 05/27/25 0757 BP: 125/72 153/64 141/71 BP Location: Right arm Right arm Patient Position: Sitting Lying Pulse: 78 64 Resp: 16 16 16 Temp: 36.2 C (97.2 F) 36.4 C (97.5 F) 36.8 C (98.2 F) TempSrc: Temporal Temporal Temporal SpO2: 93% 97% 92% Weight: 182 lb 3.2 oz (82.6 kg) Height: PF: Intake/Output Summary (Last 24 hours) at 05/27/2025 0858 Last data filed at 05/26/2025 1843 Gross per 24 hour Intake 418.53 ml Output 0 ml Net 418.53 ml Patient Vitals for the past 168 hrs: Weight Weight Method 05/27/25 0302 182 lb 3.2 oz (82.6 kg) Standing scale 05/26/25 1336 179 lb (81.2 kg) Standing scale 05/26/25 1127 176 lb (79.8 kg) -- 05/26/25 0500 176 lb 5.9 oz (80 kg) Bed scale 05/25/25 1617 170 lb (77.1 kg) -- 05/22/25 0500 170 lb 10.2 oz (77.4 kg) Bed scale 05/21/25 0904 174 lb (78.9 kg) -- 05/21/25 0701 174 lb 2.6 oz (79 kg) Bed scale 05/21/25 0305 167 lb 1.7 oz (75.8 kg) -- 05/20/25 2341 200 lb (90.7 kg) -- Physical Exam Constitutional: General: He is not in acute distress. Appearance: Normal appearance. Cardiovascular: Rate and Rhythm: Normal rate. Rhythm irregular. Pulses: Normal pulses. Heart sounds: Normal heart sounds. Pulmonary: Effort: Pulmonary effort is normal. Breath sounds: Normal breath sounds. Musculoskeletal: General: Normal range of motion. Right lower leg: No edema. Left lower leg: No edema. Skin: General: Skin is warm and dry. Findings: Bruising present. Neurological: General: No focal deficit present. Mental Status: He is alert and oriented to person, place, and time. Psychiatric: Mood and Affect: Mood normal. Behavior: Behavior normal. Laboratory Tests: TROPONIN I, CONVENTIONAL SENSITIVITY CK Date Value Ref Range Status 05/21/2025 86 30 - 185 U/L Final 11/01/2024 150 30 - 185 U/L Final 02/14/2024 110 30 - 170 U/L Final 12/30/2022 223 (H) 30 - 170 U/L Final 12/29/2022 448 (H) 30 - 170 U/L Final CKMB Date Value Ref Range Status 02/14/2024 4.1 0.0 - 4.4 ng/mL Final TROPONIN I Date Value Ref Range Status 02/14/2024 0.025 <0.034 ng/mL Final 02/13/2024 0.026 <0.034 ng/mL Final 02/13/2024 0.023 <0.034 ng/mL Final 11/12/2023 0.016 <0.034 ng/mL Final 11/11/2023 0.017 <0.034 ng/mL Final TROPONIN I, HIGH SENSITIVITY Troponin HS Serial Baseline Date Value Ref Range Status 05/20/2025 61 (H) <=35 ng/L Final Comment: In individuals presenting with symptoms > 2h, a baseline troponin <= 5 ng/L suggests acute cardiac injury is unlikely and further serial testing is generally not indicated. 11/01/2024 16 <=35 ng/L Final Comment: In individuals presenting with symptoms > 2h, a baseline troponin <= 5 ng/L suggests acute cardiac injury is unlikely and further serial testing is generally not indicated. 09/10/2024 37 (H) <=35 ng/L Final 08/19/2024 37 (H) <=35 ng/L Final 2h Troponin HS (Serial 2nd Troponin) Date Value Ref Range Status 05/21/2025 92 (H) <=35 ng/L Final Comment: 2h troponin (2nd troponin) samples collected between 1h 40 min and 2h and 20 min of the baseline collection time can be utilized to interpret delta troponins as per [employer] algorithms. Samples collected outside this timeframe need to be interpreted clinically. Rising or falling troponin delta greater than 15 ng/L as compared to baseline value is significant for acute cardiac injury. 11/01/2024 20 <=35 ng/L Final Comment: Rising or falling troponin delta between 2 - 15 ng/L as compared to baseline value requires a 3rd serial troponin 09/10/2024 38 (H) <=35 ng/L Final 08/19/2024 35 <=35 ng/L Final Absolute Delta (2nd - Baseline Troponin) Date Value Ref Range Status 09/10/2024 1 <=2 ng/L Final Comment: This specimen was collected more than 20 minutes away from the 2 hour target. Use of this delta with the 2 hour troponin algorithm is not recommended, individualized clinical assessment is needed. A troponin delta greater than or equal to 15 ng/L is significant for acute cardiac injury. Values less than 15 but greater than 2 are an intermediate change requiring a 3rd serial troponin to be drawn. Values less than or equal to 2 indicate acute cardiac injury is not likely, see external algorithms for further clinical guidance. 08/19/2024 -2 <=2 ng/L Final Comment: A troponin delta greater than or equal to 15 ng/L is significant for acute cardiac injury. Values less than 15 but greater than 2 are an intermediate change requiring a 3rd serial troponin to be drawn. Values less than or equal to 2 indicate acute cardiac injury is not likely, see external algorithms for further clinical guidance. 4h Troponin HS (Serial 3rd Troponin) Date Value Ref Range Status 11/01/2024 24 <=35 ng/L Final Comment: Rising or falling troponin delta between 2 - 15 ng/L as compared to 2h troponin value requires further evaluation. No results found for: "TROPDELTSEC" Recent Labs 05/25/25 0510 05/26/25 0230 05/27/25 0312 NA 128* 132* 130* K 3.7 4.1 4.3 CL 98 100 101 CO2 21* 26 23 BUN 19 16 13 CREATININE 0.83 0.78 0.78 Recent Labs 05/25/25 0510 05/26/25 0230 05/27/25 0312 WBC 10.6 9.4 10.1 HGB 12.2* 12.7* 11.7* HCT 36.5* 37.7* 34.6* MCV 90.8 90.6 88.9 PLT 145 158 175 Lab Results Component Value Date TSH 0.57 05/20/2025 Cardiac Tests: Device check 04/2025 (B) Routine 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 REMOTE. Normal device function. Battery 2.92V, Est Longevity 3 yrs, Charge time 8.9 sec, Last cap reform on: 02.17.25 MODE VVIR. RA lead 460 ohms. RV Lead 11.7 mV, 440 Ohms, 1.0V @0.5ms, HV 72Ohms, TELETYPESETTER MONITOR 50%. Known low BIV pacing. LV Lead 830 ohms. EPISODES: Permanent Atrial fib on Eliquis. Next clinic on: 07.07.25 - mailed letter JONATHAN Lea. Rozina Simon RN MERLIN 05/2025 Left Ventricle: Left ventricle size is normal. Normal wall thickness. Mildly reduced left ventricular systolic function. The EF by visual approximation is 50%. Mild global hypokinesis present. Right Ventricle: Right ventricle is moderately dilated. Mildly reduced systolic function. Right Atrium: Right atrium is severely dilated. Pericardium: Small (<1 cm) pericardial effusion, new following lead extraction. Aorta: Normal sized ascending aorta. Mildly dilated sinuses of Valsalva. Sinuses of Valsalva diameter is 4.4 cm. Normal sized STJ. There is mild atherosclerosis in the descending aorta. No significant valvular abnormalities. ECG 05/26/25 Atrial fibrillation 65 bpm Tracing reviewed. Telemetry findings reviewed: atrial fibrillation 70-80 bpm with frequent ventricular ectopy [1] apixaban, 5 mg, Oral, BID cefTRIAXone, 1,000 mg, IntraVENous, q24h chlorhexidine, , Topical, Daily collagenase, , Topical, Daily dapagliflozin, 5 mg, Oral, Daily folic acid, 1 mg, Oral, Daily losartan, 25 mg, Oral, Daily metoprolol succinate XL, 50 mg, Oral, BID mometasone-formoterol, 2 puff, Inhalation, BID montelukast, 10 mg, Oral, Nightly pantoprazole (ProtoNix) 40 mg in sodium chloride (PF) 0.9 % 10 mL injection, 40 mg, IntraVENous, Daily potassium phosphates 20 mmol in sodium chloride 0.9 % 250 mL IVPB, 20 mmol, IntraVENous, Once rosuvastatin, 40 mg, Oral, Daily sertraline, 100 mg, Oral, Daily sodium chloride 0.9%, 5-40 mL, IntraCATHeter, q8h spironolactone, 25 mg, Oral, Daily thiamine, 100 mg, Oral, Daily tiotropium, 2 puff, Inhalation, Daily [Held by provider] torsemide, 40 mg, Oral, Daily vancomycin, 1,000 mg, IntraVENous, q12h [2] Med Team Progress Note Krystina Markham : 1955(69 y.o.) Date: May 27, 2025 Med Team: Jourdan Attending: Dr. Wilkinson Chief Complaint: Acute metabolic encephalopathy Subjective: - Patient transferred out of the ICU back to general medical floor with telemetry yesterday - Currently, patient is resting comfortably in bed during this encounter. He denies chest pain, abnormal shortness of breath, headache, abdominal pain. PRN meds used in last 24hrs: None Agree with above Review of Systems Constitutional: Negative for chills, fatigue and fever. Respiratory: Negative for cough and shortness of breath. Cardiovascular: Negative for chest pain, palpitations and leg swelling. Gastrointestinal: Negative for abdominal pain, constipation, diarrhea, nausea and vomiting. Genitourinary: Negative for dysuria. Neurological: Negative for dizziness and headaches. Scheduled Meds:Scheduled Meds[1] Continuous Infusions:Continuous Meds[2] Objective: BP 153/64 (BP Location: Right arm, Patient Position: Lying) Pulse 64 Temp 36.4 C (97.5 F) (Temporal) Resp 16 Ht 5' 8" (1.727 m) Wt 182 lb 3.2 oz (82.6 kg) SpO2 97% PF 44 L/min BMI 27.70 kg/m Physical Exam Vitals reviewed: Nasal cannula in place, 2L O2. Constitutional: General: He is not in acute distress. Appearance: Normal appearance. HENT: Head: Normocephalic and atraumatic. Cardiovascular: Rate and Rhythm: Normal rate and regular rhythm. Pulses: Normal pulses. Pulmonary: Effort: Pulmonary effort is normal. Breath sounds: Wheezing (Mild expiratory wheezing) present. Abdominal: Palpations: Abdomen is soft. Tenderness: There is no abdominal tenderness. Musculoskeletal: General: No tenderness. Right lower leg: No edema. Left lower leg: No edema. Skin: General: Skin is warm and dry. Neurological: General: No focal deficit present. Mental Status: He is alert and oriented to person, place, and time. Psychiatric: Mood and Affect: Mood normal. Behavior: Behavior normal. Select Recent Labs BMP: Recent Labs 05/25/25 0510 05/26/25 0230 05/27/25 031 NA 128* 132* 130* K 3.7 4.1 4.3 CL 98 100 101 CO2 21* 26 23 BUN 19 16 13 CREATININE 0.83 0.78 0.78 CALCIUM 9.3 8.8 8.5* MG 1.8 1.8 1.6 PHOS 3.1 2.9 1.9* LFTs: Recent Labs 05/25/25 0510 05/26/25 023 AST 123* 97* ALT 69* 75* PROT 5.9* 5.6* ALBUMIN 2.7* 2.5* BILITOT 0.3 0.4 ALKPHOS 100 92 Glucose: Recent Labs 05/25/25 0510 05/26/25 0230 05/27/25 031 GLUCOSE 106 81* 103 Procal: No results for input(s): "PROCAL" in the last 72 hours. CBC: Recent Labs 05/25/25 0510 05/26/25 0230 05/27/25 031 WBC 10.6 9.4 10.1 HGB 12.2* 12.7* 11.7* HCT 36.5* 37.7* 34.6* PLT 145 158 175 MCV 90.8 90.6 88.9 RDW 12.9 12.9 12.9 ABGs: No results for input(s): "PHART", "CNR3SBX", "PO2ART", "YNS8RNC", "SO2ART", "S8KSSXZZ" in the last 72 hours. Lactic Acid: No results for input(s): "LACTATE" in the last 72 hours. INR: No results for input(s): "INR" in the last 72 hours. Cardiac Injury Profile: No results for input(s): "CKTOTAL", "CKMB", "TROPONINI", "TROPHSBASE", "TROPHS2", "BNP" in the last 72 hours. Notable Prior Labs: Lab Results Component Value Date TSH 0.57 05/20/2025 VITD25 17 (L) 07/17/2022 INR 1.2 (H) 09/12/2024 Notable Imaging: CT Chest/Abdomen/Pelvis 05/20/2025 - infiltrate in the left posterior lung base suspicious for pneumonia. 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 Unlikely to need replacement of the defibrillator now that EF has recovered, unlikely to need life vest. Plan is to resume anticoagulation tonight per cardiology. #Staph bacteremia #L lower lobe pneumonia - Infectious disease following -Blood cultures 05/24/2025 NGTD Plan: - Continue vancomycin with final dose 07/05/2025 - Continue ceftriaxone with final dose today - ID reports patient okay for PICC line with blood cultures remaining negative at 72 hours - ID prefers SNF on discharge due to PICC line Agree with above. Plan for PICC tomorrow if blood cultures negative at the 72 hour nissa. Patient agreeable to SNF placement. #Chronic respiratory failure O2 2L NC 2/2 COPD - Patient currently stable on home dose of oxygen Plan: - Dulera twice daily - Singulair 10 mg nightly - Spiriva daily - Prednisone 40 mg daily for 3 days completed 05/25/2025 Agree with above #Hyponatremia - Patient has history of chronic alcohol use - Na 130 05/27/2025 Plan: - Obtain serum Na and Osm, urine Na and Osm Resolved Problems: #Septic shock secondary to staph bacteremia and L lower lobe pneumonia - Leukocytosis resolved - Vital signs stable, within normal limits #VIMAL #Acute respiratory failure 2/2 L lower lobe pneumonia - Patient currently stable on home dose of oxygen #Acute encephalopathy Chronic Stable Problems and Follow Up Items: None Dispo and Barriers to Discharge: Pending recommendations from cardiology for discharge - Goals of Care: FULL CODE - DVT Prophylaxis: SCD's or Sequential Compression Device - GI Prophylaxis: Protonix daily - Diet: NPO On 05/27/25 I personally examined the patient and reviewed the case with the resident and or med student. I have personally taken a history, examined the patient, and performed the associated medical decision making activities. I have reviewed & verified the attested documentation. Unless otherwise noted below, this documentation reflects the history, physical exam, and medical decision making that I performed myself. I agree with the current plan of care including the workup, evaluation, management, and diagnosis. Care plan has been discussed. The above documentation has been reviewed and edited as needed to reflect the findings of my evaluation. Attending comments are in bold. I personally spent total time of 50 minutes coordinating care. I personally reviewed the chart, data, labs, radiology reports, and discussed the case with the resident team. Plan of care discussed with patient as well. [1] apixaban, 5 mg, Oral, BID cefTRIAXone, 1,000 mg, IntraVENous, q24h chlorhexidine, , Topical, Daily collagenase, , Topical, Daily dapagliflozin, 5 mg, Oral, Daily folic acid, 1 mg, Oral, Daily losartan, 25 mg, Oral, Daily metoprolol succinate XL, 50 mg, Oral, Daily mometasone-formoterol, 2 puff, Inhalation, BID montelukast, 10 mg, Oral, Nightly pantoprazole (ProtoNix) 40 mg in sodium chloride (PF) 0.9 % 10 mL injection, 40 mg, IntraVENous, Daily potassium phosphates 20 mmol in sodium chloride 0.9 % 250 mL IVPB, 20 mmol, IntraVENous, Once rosuvastatin, 40 mg, Oral, Daily sertraline, 100 mg, Oral, Daily sodium chloride 0.9%, 5-40 mL, IntraCATHeter, q8h spironolactone, 25 mg, Oral, Daily thiamine, 100 mg, Oral, Daily tiotropium, 2 puff, Inhalation, Daily [Held by provider] torsemide, 40 mg, Oral, BID vancomycin, 1,500 mg, IntraVENous, q24h [2] Pharmacy to Dose Vancomycin - Progress Note Lab Results Component Value Date CREATININE 0.78 05/27/2025 BUN 13 05/27/2025 WBC 10.1 05/27/2025 VANCOTROUGH 27.0 05/24/2025 Doses, serum creatinine, and vancomycin levels interfaced automatically to Smartbill - [employer] Backoffice and data has been analyzed and interpreted. Infectious Diagnosis: Pneumonia (CAP) Est CrCl: 95 mL/min (Cockcroft-Gault) Assessment: Current regimen vancomycin 1500 mg every 24 hours (18.2 mg/kg) Predicted AUC = 434 mg/L*hr (goal 400-600 mg/L*hr) PAUC = 71% (probability that AUC is >400 mg/L*hr) Pconc = <5% (probability that Ctrough is above 20 mcg/mL (toxicity)) Plan: Is the current dose therapeutic? . [x] No - change current regimen to vancomycin 1000 mg every 12 hours (12.1 mg/kg) for predicted AUC = 574 mg/L*hr, PAUC = >95% , and Pconc* = 19%. Obtain next level tomorrow 05/28/25. Trend serum creatinine. Trend AUC using Bayesian Modeling. Orders placed. DATE: 05/27/25 TIME: 7:50 AM Nitesh Johnson RPh, PharmD. Available via Secure Chat Patient was transferred back from [facility] to general floors. I reintroduced myself to the patient with medical student Suman Armijo. Patient's ex-, Melodie, was at bedside. The patient is not complaining of any symptoms. Denies any chest pain, shortness of breath, abdominal pain, nausea, vomiting, headache, dizziness, palpitations. The patient states that the procedure went well. The patient was not on any supplemental oxygen during this encounter. Checked O2 saturation and was 86% on room air. The patient was then placed on 2L NC. Nurse will recheck and get a set of vitals after 5 minutes. The patient did not have any questions at this time. Melodie would like us to confirm whether or not he needs a new device place prior to discharge or if that will happen at some other point in the future. Physical Exam Gen: no acute distress Heart: heart sounds normal, (-) m/r/g, pulses normal Lungs: CTAB anteriorly, normal breath sounds MSK: SCDs in place in [facility] Neuro: AOx3, (-) focal deficit Nutrition Assessment Type and Reason for Visit: Reassess Nutrition Recommendations/Plan: Per MNT: add Ensure Plus HP once daily to supplement intake and provide add'l high protein option (8oz, 350kcal, 20gm protein). Recommend record po intake I/O flowsheet to monitor. RD will follow weekly. Malnutrition Assessment: Malnutrition Status: Insufficient data (will monitor ability to obtain additional subjective nutrition history when pt is extubated) Context: Acute Illness Findings of the 6 clinical characteristics of malnutrition: Energy Intake: Unable to assess (unclear nutrition intake TRANSITIONAL STUDIES INSTRUCTOR, pt currently intubated/sedated and unable to provide history, no visitors in room, sedated with propofol was @ 10.88mls/hr --> 6.8mls/hr currently, NPO) Weight Loss: Unable to assess (RD obtained bedscale of 79kg (174#), per EPIC review --> 04/15/24: 178#, 08/19: 195#, 09/28/24: 188#, 10/14: 188#, 11/02: 194#, unable to obtain weight history from pt 10/04 inbtubation, large fluctuations throughout last year noted/unable to determine pt UBW) Body Fat Loss: Unable to assess (deferred at this time, appears pt could have some losses however unknown baseline) Muscle Mass Loss: Unable to assess (deferred at this time, appears pt could have some losses however unknown baseline) Fluid Accumulation: No significant fluid accumulation (per flowsheets) Chucking Machine Set Up Operator Tool Strength: Not Performed Nutrition Assessment: Extubated 05/22. 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 removed and MERLIN completed 05/25. ID following for MRSA bacteremia; Blood Cx set #3 NGTD (24 hrs), S pneumo pneumonia, septic shock - resolved. Labs: Na low 132, Glucose low 81. Medications reviewed. Regular diet. Pt reports baseline appetite/intake without N/V/abd pain. Denies chew/swallow difficulty. No special diets or food allergies. Pt states he consumed 100% bfst: scrambled eggs, bruneian muffin, OJ. Pt feels he is getting enough to eat. Requests a fresh coffee. Estimated Daily Nutrient Needs: Energy Requirements Based On: Kcal/kg Weight Used for Energy Requirements: [place] Weight for Energy Calculation (kg): 70 kg Total Energy Requirements (kcals/day): 1750-2100kcals/day Weight Used for Protein Requirements: [place] Weight in Kg Used for Protein Requirements: 70 kg Estimated Total Protein (g/day): 70-84gm pro/day Estimated Daily Total Fluid (ml/day): per MD recommendations Nutrition Related Findings: +I/O, no edema, Keegan 15, +BS, BM 05/25 Wound Type: Surgical Incision, Skin Tears (Chest incision, R forearm tear) Current Nutrition Therapies: Adult diet Regular Current Oral Intake Average Meal Intake: 76-100% (per pt) Average Supplements Intake: None Ordered Anthropometric Measures: Height: 172.7 cm (5' 8") Current Body Weight: 80 kg (176 lb 5.9 oz) Weight Source: Bed Scale Admission Body Weight: 90.7 kg (200 lb) (no method 05/20) Usual Body Weight: (per EPIC review --> 04/15/24: 178#, 08/19: 195#, 09/28/24: 188#, 10/14: 188#, 11/02: 194#) [place] Body Weight (lbs) (Calculated): 154 lbs [place] Body Weight (Kg) (Calculated): 70 kg % [place] Body Weight (Calculated): 114.5 % BMI (kg/m2) (Calculated): 26.8 Weight Adjustment For: No Adjustment BMI Categories: Overweight (BMI 25.0-29.9) Nutrition Diagnosis: Inadequate oral intake related to impaired respiratory function as evidenced by NPO or clear liquid status due to medical condition, intubation Altered nutrition-related lab values related to renal dysfunction, endocrine dysfuntion as evidenced by lab values Nutrition Interventions: Nutrition Education/Counseling: No recommendation at this time Coordination of Nutrition Care: Continue to monitor while inpatient Plan of Care discussed with: RN Goals: Previous Goal Met: Goal(s) Achieved Goals: PO intake 75% or greater Nutrition Monitoring and Evaluation: Behavioral-Environmental Outcomes: None Identified Food/Nutrient Intake Outcomes: Food and Nutrient Intake, Supplement Intake Physical Signs/Symptoms Outcomes: Biochemical Data, GI Status, Fluid Status or Edema, Hemodynamic Status, Nutrition Focused Physical Findings, Skin, Weight Discharge Planning: Too soon to determine Paola Finn RD Contact: Zeuss or *[phone] Pharmacy to Dose Vancomycin - Progress Note Lab Results Component Value Date CREATININE 0.78 05/26/2025 BUN 16 05/26/2025 WBC 9.4 05/26/2025 VANCOTROUGH 27.0 05/24/2025 Doses, serum creatinine, and vancomycin levels interfaced automatically to Smartbill - Recurrence Backoffice and data has been analyzed and interpreted. Infectious Diagnosis: bacteremia Est CrCl: 88 mL/min (Cockcroft-Gault) Assessment: Current regimen vancomycin 1500 mg every 24 hours Predicted AUC = 438 mg/L*hr (goal 400-600 mg/L*hr) PAUC = 74% (probability that AUC is >400 mg/L*hr) Pconc = <5% (probability that Ctrough is above 20 mcg/mL (toxicity)) SCr improved since vanc initiation on 05/21/25, now back to baseline. Has been receiving current vancomycin regimen since that time. Last level 05/24 in expected range. Predicted AUC therapeutic, repeat blood cx from 05/24 show no growth to date. Plan: Will continue current vancomycin regimen 1500mg q 24hr. Will plan on vanc level 05/31 unless needed sooner. DATE: 05/26/25 TIME: 11:44 AM Javier Cooney RPh Clinical Pharmacist Available via Secure Chat [facility] Cardiology /Electrophysiology Progress Note HPI / Interval History: Mr Markham is 69-year-old male who presented from home after he was found to be in respiratory distress. He has a medical history of HFrEF secondary nonischemic cardiomyopathy status post RIDES SUPERVISOR/D, permanent A-fib, COPD on home O2, alcohol abuse, tobacco abuse. He was febrile, hyponatremic and there is concern for septic shock as well as left lower lobe pneumonia and alcohol withdrawals. He initially had to be intubated, his infectious workup was notable for MRSA bacteremia,U Ags+ S pneumoniae. He had a TTE on 05/20/2025 which did not show any obvious signs of vegetation however did show EF of 50% which is improved from 21% in the past. His repeat blood cultures from admission show gram-positive cocci. He is on Rocephin and vancomycin per ID. His home GDMT was held initially given hypotension, septic shock, VIMAL by his primary team. Yesterday, He underwent a lead extraction/device by Dr Mendoza. Today, He has SOB at baseline and states wears oxygen at home. Denies chest pain, palpitations or groin pain. He is sitting in the chair. Assessment/Plan MRSA bacteremia, 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 in place. -His initial cultures were positive for MRSA bacteremia, repeat cultures showed gram-positive cocci -His TTE did not show any obvious sources of vegetation ID is following for antibiotic recommendations -Status post 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 removal by Dr Mendoza 05/25/25. Right groin suture removed today and Pressure dressing Left Oriana-pectoral. -Restart Eliquis 05/27/25 in evening. -ID following. -Will follow 2. HFimpEF, 2/2 NICM -Prior EF is 21%, repeat EF 50% -Restart beta amira today, Continue losartan and aldactone -Recommended to resume SGLT2i on dc - Plan for follow up with HF as OP. Hold home torsemide for now - on dc can likely be dc with 40 torsemide daily, we will arrange for close follow up with HF as an op 3. COPD -Primary Following Transfer back to floor to Med Team, Dr Wilkinson notified. Medications: Scheduled Meds[1] Infusion Medications: Continuous Meds[2] Physical Examination: Vitals: 05/26/25 0500 05/26/25 0559 05/26/25 0600 05/26/25 0700 BP: 99/50 124/88 126/59 BP Location: Patient Position: Pulse: 67 71 68 72 Resp: 13 20 18 19 Temp: TempSrc: SpO2: 100% 100% 100% 96% Weight: 176 lb 5.9 oz (80 kg) Height: PF: Intake/Output Summary (Last 24 hours) at 05/26/2025 1007 Last data filed at 05/26/2025 0550 Gross per 24 hour Intake 527.67 ml Output 865 ml Net -337.33 ml Patient Vitals for the past 168 hrs: Weight Weight Method 05/26/25 0500 176 lb 5.9 oz (80 kg) Bed scale 05/25/25 1617 170 lb (77.1 kg) -- 05/22/25 0500 170 lb 10.2 oz (77.4 kg) Bed scale 05/21/25 0904 174 lb (78.9 kg) -- 05/21/25 0701 174 lb 2.6 oz (79 kg) Bed scale 05/21/25 0305 167 lb 1.7 oz (75.8 kg) -- 05/20/25 2341 200 lb (90.7 kg) -- Physical Exam Constitutional: NAD Psychiatric: Alert. Medical insight fair Neck: No JVD Respiratory: Lungs are CTA Heart: Irregular ; Nl S1 and S2, No murmur, no rub, gallop Abdomen: NABS; soft, non-tender, non-distended Extremities: No LE edema, SCDs noted Skin: Warm to touch and well perfused Right groin suture removed and obsite applied. No hematoma or ecchymosis Left Oriana-pectoral dressing intact old drainage and pressure dressing removed. No hematoma or ecchymosis. Laboratory Tests: TROPONIN I, CONVENTIONAL SENSITIVITY CK Date Value Ref Range Status 05/21/2025 86 30 - 185 U/L Final 11/01/2024 150 30 - 185 U/L Final 02/14/2024 110 30 - 170 U/L Final 12/30/2022 223 (H) 30 - 170 U/L Final 12/29/2022 448 (H) 30 - 170 U/L Final CKMB Date Value Ref Range Status 02/14/2024 4.1 0.0 - 4.4 ng/mL Final TROPONIN I Date Value Ref Range Status 02/14/2024 0.025 <0.034 ng/mL Final 02/13/2024 0.026 <0.034 ng/mL Final 02/13/2024 0.023 <0.034 ng/mL Final 11/12/2023 0.016 <0.034 ng/mL Final 11/11/2023 0.017 <0.034 ng/mL Final TROPONIN I, HIGH SENSITIVITY Troponin HS Serial Baseline Date Value Ref Range Status 05/20/2025 61 (H) <=35 ng/L Final Comment: In individuals presenting with symptoms > 2h, a baseline troponin <= 5 ng/L suggests acute cardiac injury is unlikely and further serial testing is generally not indicated. 11/01/2024 16 <=35 ng/L Final Comment: In individuals presenting with symptoms > 2h, a baseline troponin <= 5 ng/L suggests acute cardiac injury is unlikely and further serial testing is generally not indicated. 09/10/2024 37 (H) <=35 ng/L Final 08/19/2024 37 (H) <=35 ng/L Final 2h Troponin HS (Serial 2nd Troponin) Date Value Ref Range Status 05/21/2025 92 (H) <=35 ng/L Final Comment: 2h troponin (2nd troponin) samples collected between 1h 40 min and 2h and 20 min of the baseline collection time can be utilized to interpret delta troponins as per [employer] algorithms. Samples collected outside this timeframe need to be interpreted clinically. Rising or falling troponin delta greater than 15 ng/L as compared to baseline value is significant for acute cardiac injury. 11/01/2024 20 <=35 ng/L Final Comment: Rising or falling troponin delta between 2 - 15 ng/L as compared to baseline value requires a 3rd serial troponin 09/10/2024 38 (H) <=35 ng/L Final 08/19/2024 35 <=35 ng/L Final Absolute Delta (2nd - Baseline Troponin) Date Value Ref Range Status 09/10/2024 1 <=2 ng/L Final Comment: This specimen was collected more than 20 minutes away from the 2 hour target. Use of this delta with the 2 hour troponin algorithm is not recommended, individualized clinical assessment is needed. A troponin delta greater than or equal to 15 ng/L is significant for acute cardiac injury. Values less than 15 but greater than 2 are an intermediate change requiring a 3rd serial troponin to be drawn. Values less than or equal to 2 indicate acute cardiac injury is not likely, see external algorithms for further clinical guidance. 08/19/2024 -2 <=2 ng/L Final Comment: A troponin delta greater than or equal to 15 ng/L is significant for acute cardiac injury. Values less than 15 but greater than 2 are an intermediate change requiring a 3rd serial troponin to be drawn. Values less than or equal to 2 indicate acute cardiac injury is not likely, see external algorithms for further clinical guidance. 4h Troponin HS (Serial 3rd Troponin) Date Value Ref Range Status 11/01/2024 24 <=35 ng/L Final Comment: Rising or falling troponin delta between 2 - 15 ng/L as compared to 2h troponin value requires further evaluation. No results found for: "TROPDELTSEC" Recent Labs 05/24/25 0540 05/25/25 0510 05/26/25 0230 NA 126* 128* 132* K 4.0 3.7 4.1 CL 98 98 100 CO2 19* 21* 26 BUN 22 19 16 CREATININE 0.78 0.83 0.78 Recent Labs 05/24/25 0540 05/25/25 0510 05/26/25 0230 WBC 15.0* 10.6 9.4 HGB 12.5* 12.2* 12.7* HCT 35.2* 36.5* 37.7* MCV 87.3 90.8 90.6 PLT 143 145 158 No results for input(s): "BNP" in the last 72 hours. No results for input(s): "TRIG", "HDL", "LDLCALC", "CHOL" in the last 72 hours. No results found for: LDLCHOLESTER Lab Results Component Value Date TSH 0.57 05/20/2025 EF BP Date Value Ref Range Status 05/21/2025 50 (A) 55 - 100 % Final 05/20/25 MERLIN INTRA OP DURING STRUCTURAL HEART 05/25/2025 5:07 PM (Final) Interpretation Summary Left Ventricle: Left ventricle size is normal. Normal wall thickness. Mildly reduced left ventricular systolic function. The EF by visual approximation is 50%. Mild global hypokinesis present. Right Ventricle: Right ventricle is moderately dilated. Mildly reduced systolic function. Right Atrium: Right atrium is severely dilated. Pericardium: Small (<1 cm) pericardial effusion, new following lead extraction. Aorta: Normal sized ascending aorta. Mildly dilated sinuses of Valsalva. Sinuses of Valsalva diameter is 4.4 cm. Normal sized STJ. There is mild atherosclerosis in the descending aorta. No significant valvular abnormalities. Signed by: Brant Rosas MD on 05/25/2025 5:07 PM Other reports reviewed: Cardiac Tests: ECG: Interpretation Summary IMPRESSION: Sinus rhythm Multiple ventricular premature complexes Sinus pause Left bundle branch block ECG Measurements QRSD Interval: 184 ms QT Interval: 509 ms QTC Interval: 534 ms Heart Rate: 65 bpm P [place]: 0 degrees QRS [place]: 266 degrees T Wave [place]: 134 degrees Tracing reviewed. Telemetry findings reviewed: Atrial fibrillation with PVCs 56-74 EF BP Date Value Ref Range Status 05/21/2025 50 (A) 55 - 100 % Final Olya Jo APRN - [employer] Date Of Service 05/26/2025 [1] [Held by provider] apixaban, 5 mg, Oral, BID cefTRIAXone, 1,000 mg, IntraVENous, q24h chlorhexidine, , Topical, Daily collagenase, , Topical, Daily dapagliflozin, 5 mg, Oral, Daily folic acid, 1 mg, Oral, Daily losartan, 25 mg, Oral, Daily [Held by provider] metoprolol succinate XL, 50 mg, Oral, Daily mometasone-formoterol, 2 puff, Inhalation, BID montelukast, 10 mg, Oral, Nightly pantoprazole (ProtoNix) 40 mg in sodium chloride (PF) 0.9 % 10 mL injection, 40 mg, IntraVENous, Daily rosuvastatin, 40 mg, Oral, Daily sertraline, 100 mg, Oral, Daily sodium chloride 0.9%, 5-40 mL, IntraCATHeter, q8h spironolactone, 25 mg, Oral, Daily thiamine, 100 mg, Oral, Daily tiotropium, 2 puff, Inhalation, Daily [Held by provider] torsemide, 40 mg, Oral, BID vancomycin, 1,500 mg, IntraVENous, q24h [2] Images from the original note were not included. [facility] - Infectious Diseases Attending Progress Note Reason for Consult: Bacteremia Subjective/Interval Events: Patient examined at bedside. Denies fevers, chills, night sweats, chest pain, diarrhea or constipation. Stated he is at baseline SOB. Objective: Vitals: Patient Vitals for the past 24 hrs: BP Temp Temp src Pulse Resp SpO2 Height Weight 05/26/25 0700 126/59 -- -- 72 19 96 % -- -- 05/26/25 0600 124/88 -- -- 68 18 100 % -- -- 05/26/25 0559 -- -- -- 71 20 100 % -- -- 05/26/25 0500 99/50 -- -- 67 13 100 % -- 176 lb 5.9 oz (80 kg) 05/26/25 0400 126/77 36.6 C (97.9 F) Temporal 74 14 100 % -- -- 05/26/25 0300 130/80 -- -- 66 16 100 % -- -- 05/26/25 0200 119/86 -- -- 57 13 100 % -- -- 05/26/25 0100 123/73 -- -- 73 17 95 % -- -- 05/26/25 0000 139/95 36.2 C (97.2 F) Temporal 61 17 100 % -- -- 05/25/25 2300 116/75 -- -- 62 12 92 % -- -- 05/25/25 2200 125/67 -- -- 60 17 99 % -- -- 05/25/25 2105 119/74 -- -- 82 17 99 % -- -- 05/25/251999 134/81 -- -- 90 20 100 % -- -- 05/25/25 195 134/81 36.6 C (97.9 F) Temporal 81 19 100 % -- -- 05/25/25 1900 112/73 -- -- 85 18 92 % -- -- 05/25/25 1800 141/85 -- -- 98 19 100 % -- -- 05/25/25 1730 (!) 138/105 -- -- 72 16 100 % -- -- 05/25/25 1715 134/83 -- -- 62 15 -- -- -- 05/25/25 1700 140/74 -- -- 63 16 -- -- -- 05/25/25 1645 141/78 -- -- 62 16 (!) 89 % -- -- 05/25/25 1630 128/84 (!) 35.7 C (96.3 F) Temporal 66 20 91 % -- -- 05/25/25 1617 136/85 36.1 C (97 F) Temporal 75 15 98 % 5' 8" (1.727 m) 170 lb (77.1 kg) Physical Exam Constitutional: Appearance: Normal appearance. HENT: Head: Normocephalic and atraumatic. Mouth/Throat: Pharynx: Oropharynx is clear. Eyes: Conjunctiva/sclera: Conjunctivae normal. Cardiovascular: Rate and Rhythm: Normal rate and regular rhythm. Pulses: Normal pulses. Heart sounds: Normal heart sounds. No murmur heard. Pulmonary: Effort: Pulmonary effort is normal. No respiratory distress. Breath sounds: Wheezing present. No rales. Abdominal: General: Bowel sounds are normal. Tenderness: There is no abdominal tenderness. There is no guarding. Musculoskeletal: Right lower leg: No edema. Left lower leg: No edema. Skin: General: Skin is warm. Neurological: Mental Status: He is alert. Mental status is at baseline. Psychiatric: Mood and Affect: Mood normal. Behavior: Behavior normal. Labs: Lab Results Component Value Date/Time NA 132 (L) 05/26/2025 0230 K 4.1 05/26/2025 0230 CL 100 05/26/2025 0230 CO2 26 05/26/2025 0230 CO2 36 (H) 10/14/2024 1440 BUN 16 05/26/2025 0230 BUN 20 10/14/2024 1440 CREATININE 0.78 05/26/2025 023 CREATININE 0.60 (L) 10/14/2024 1440 GLUCOSE 81 (L) 05/26/2025 0230 GLUCOSE 110 (H) 10/14/2024 1440 CALCIUM 8.8 05/26/2025 0230 CALCIUM 9.9 10/14/2024 1440 PROT 5.6 (L) 05/26/2025 023 BILITOT 0.4 05/26/2025 0230 ALKPHOS 92 05/26/2025 0230 AST 97 (H) 05/26/2025 0230 ALT 75 (H) 05/26/2025 0230 PROCAL 0.51 (H) 05/20/2025 2220 PROCAL 0.04 08/19/2024 1947 PROCAL 0.18 (H) 11/11/2023 2351 Lab Results Component Value Date/Time WBC 9.4 05/26/2025 0230 HGB 12.7 (L) 05/26/2025 0230 HGB 13.9 05/22/2025 0326 HCT 37.7 (L) 05/26/2025 0230 PLT 158 05/26/2025 0230 GRANULOCYTES 70.7 08/25/2021 0504 LYMPHOPCT 7.7 (L) 05/26/2025 0230 LYMPHOPCT 0 (L) 05/20/2025 2220 MONOPCT 11.1 05/26/2025 0230 MONOPCT 0 (L) 05/20/2025 2220 LABEOS 3.6 08/25/2021 0504 BASOPCT 0.1 05/26/2025 0230 NEUTROABS 7.5 05/26/2025 0230 Micro: 05/24 Blood Cx 2/2 in process 05/22 Blood Cx 2/2 S aureus 05/21 Respiratory culture elsa, S pneumo 05/21 Pneumonia PCR S pneumo 05/20 Legionella urine antigen negative, Pneumococcus urine antigen positive 05/20 4plex negative 05/20 RPP negative 05/20 Blood Cx 2/2 MRSA LDA: PIV Imagin/23 MERLIN Left Ventricle: Left ventricle size is normal. Normal wall thickness. Mildly reduced left ventricular systolic function. The EF by visual approximation is 50%. Mild global hypokinesis present. Right Ventricle: Right ventricle is moderately dilated. Mildly reduced systolic function. Right Atrium: Right atrium is severely dilated. Pericardium: Small (<1 cm) pericardial effusion, new following lead extraction. Aorta: Normal sized ascending aorta. Mildly dilated sinuses of Valsalva. Sinuses of Valsalva diameter is 4.4 cm. Normal sized STJ. There is mild atherosclerosis in the descending aorta. No significant valvular abnormalities. 05/23 CXR IMPRESSION: Atelectasis at the lung bases. Chronic obstructive pulmonary disease 05/21 TTE Impression Left Ventricle: Left ventricle is mildly dilated. Mildly increased wall thickness. Low normal left ventricular systolic function. EF by 2D Simpsons Biplane is 50%. Global longitudinal strain is reduced with a value of -13.3%. See diagram for wall motion findings. Indeterminate diastolic function due to atrial fibrillation. Right Ventricle: Right ventricle is mildly dilated. ICD lead present in the right ventricle. Normal systolic function. Left Atrium: Left atrium size is severely increased (LA volume index >48 mL/m2).LA Vol Index is 57 ml/m2. Right Atrium: Right atrium is severely dilated. No significant valvular abnormalities. In comparison to the previous study on 11/12/2023, LVEF has improved. 05/20 CT c/a/p Infiltrate in the left posterior lung base suspicious for pneumonia. Again seen are compression fractures of T6-T8. Interval development of a compression fracture of T9. 05/20 CT head 1. No acute intracranial findings. 2. Probable chronic ischemic and atrophic changes. Antibiotics: 05/21- IV Vancomycin 05/21- Ceftriaxone Assessment: MRSA bacteremia; Blood Cx set #3 NGTD (24 hrs) S pneumo pneumonia HF/NICM s/p 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 S/p MERLIN and 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evice extraction Septic shock, resolved VIMAL, resolved COPD Alcohol abuse and Tobacco use History of non compliance Plan: Continue Vancomycin Last Day of Ceftriaxone tomorrow (05/27) Follow up repeat blood cultures (NG 48 hrs) If pt remains bacteremic post extraction, will add a second agent ID will continue to follow. Toni Meek MS-IV Cosigned by Rachael Ngo MD at 05/26/2025 6:36 PM EDT Associated attestation - Rachael Ngo MD - 05/26/2025 6:36 PM EDT Pt seen, discussed and examined on ID consultation rounds. Pt awake, alert. Pt has no complaints. Vitals reviewed. Pt afebrile. Exam repeated and agree with MS Meek's PE. 05/24 blood cultures remain negative. Continue vanc; ends 07/05. Ceftriaxone ends 05/27. If repeat blood cultures remain negative at 72 hours, ok for a PICC. Favor SNF on discharge. Pt is not a good candidate for a PICC in the community. Dalbavancin may be an option if plan for discharge home. Following. Rachael Ngo MD Based on diagnoses and management, combination of acute and chronic problems, exacerbations and/or acuity, this visit should be considered to be of moderate complexity. Images from the original note were not included. [facility] - Infectious Diseases Attending Progress Note Reason for Consult: Bacteremia Subjective/Interval Events: Patient examined at bedside. Denies itching, fever, chills or night sweats. Baseline shortness of breath with no chest pain or tightness. Patient taken for 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 extraction with MERLIN this afternoon. Objective: Vitals: Patient Vitals for the past 24 hrs: BP Temp Temp src Pulse Resp SpO2 05/25/25 0732 141/98 36.1 C (97 F) Temporal 74 16 90 % 05/24/25 2040 130/87 36.6 C (97.9 F) Temporal 62 21 94 % Physical Exam Constitutional: Appearance: He is ill-appearing. HENT: Head: Normocephalic. Mouth/Throat: Pharynx: Oropharynx is clear. Eyes: Conjunctiva/sclera: Conjunctivae normal. Cardiovascular: Rate and Rhythm: Normal rate and regular rhythm. Pulses: Normal pulses. Heart sounds: Normal heart sounds. No murmur heard. Pulmonary: Effort: Pulmonary effort is normal. Breath sounds: Wheezing (diffuse) present. Chest: Chest wall: No tenderness. Abdominal: General: Bowel sounds are normal. Palpations: Abdomen is soft. Tenderness: There is no abdominal tenderness. There is no guarding. Musculoskeletal: Right lower leg: No edema. Left lower leg: No edema. Skin: General: Skin is warm. Neurological: Mental Status: He is alert. Mental status is at baseline. Psychiatric: Mood and Affect: Mood normal. Behavior: Behavior normal. Labs: Lab Results Component Value Date/Time NA 128 (L) 05/25/2025 0510 K 3.7 05/25/2025 0510 CL 98 05/25/2025 0510 CO2 21 (L) 05/25/2025 0510 CO2 36 (H) 10/14/2024 1440 BUN 19 05/25/2025 0510 BUN 20 10/14/2024 1440 CREATININE 0.83 05/25/2025 0510 CREATININE 0.60 (L) 10/14/2024 1440 GLUCOSE 106 05/25/2025 0510 GLUCOSE 110 (H) 10/14/2024 1440 CALCIUM 9.3 05/25/2025 0510 CALCIUM 9.9 10/14/2024 1440 PROT 5.9 (L) 05/25/2025 0510 BILITOT 0.3 05/25/2025 0510 ALKPHOS 100 05/25/2025 0510 AST 123 (H) 05/25/2025 0510 ALT 69 (H) 05/25/2025 0510 PROCAL 0.51 (H) 05/20/2025 2220 PROCAL 0.04 08/19/2024 1947 PROCAL 0.18 (H) 11/11/2023 2351 Lab Results Component Value Date/Time WBC 10.6 05/25/2025 0510 HGB 12.2 (L) 05/25/2025 0510 HGB 13.9 05/22/2025 0326 HCT 36.5 (L) 05/25/2025 0510 PLT 145 05/25/2025 0510 GRANULOCYTES 70.7 08/25/2021 0504 LYMPHOPCT 7.2 (L) 05/25/2025 0510 LYMPHOPCT 0 (L) 05/20/2025 2220 MONOPCT 8.0 05/25/2025 0510 MONOPCT 0 (L) 05/20/2025 2220 LABEOS 3.6 08/25/2021 0504 BASOPCT 0.2 05/25/2025 0510 NEUTROABS 8.8 (H) 05/25/2025 0510 Micro: 05/24 Blood Cx 2/2 in process 05/22 Blood Cx 2 S aureus 05/21 Respiratory culture elsa, S pneumo 05/21 Pneumonia PCR S pneumo 05/20 Legionella urine antigen negative, Pneumococcus urine antigen positive 05/20 4plex negative 05/20 RPP negative 05/20 Blood Cx 2/ MRSA LDA: PIV Imagin/23 MERLIN- pending 05/23 CXR IMPRESSION: Atelectasis at the lung bases. Chronic obstructive pulmonary disease 05/21 TTE Impression Left Ventricle: Left ventricle is mildly dilated. Mildly increased wall thickness. Low normal left ventricular systolic function. EF by 2D Simpsons Biplane is 50%. Global longitudinal strain is reduced with a value of -13.3%. See diagram for wall motion findings. Indeterminate diastolic function due to atrial fibrillation. Right Ventricle: Right ventricle is mildly dilated. ICD lead present in the right ventricle. Normal systolic function. Left Atrium: Left atrium size is severely increased (LA volume index >48 mL/m2).LA Vol Index is 57 ml/m2. Right Atrium: Right atrium is severely dilated. No significant valvular abnormalities. In comparison to the previous study on 11/12/2023, LVEF has improved. 05/20 CT c/a/p Infiltrate in the left posterior lung base suspicious for pneumonia. Again seen are compression fractures of T6-T8. Interval development of a compression fracture of T9. 05/20 CT head 1. No acute intracranial findings. 2. Probable chronic ischemic and atrophic changes. Antibiotics: 05/21- IV Vancomycin 05/21-05/25 Ceftriaxone Assessment: MRSA bacteremia; Blood Cx set #3 NGTD (24 hrs) S pneumo pneumonia HF/NICM s/p 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; awaiting device extraction 05/25 (today) Septic shock, resolved VIMAL, resolved COPD Alcohol abuse and Tobacco use History of non compliance Plan: Continue Vancomycin and Ceftriaxone Follow up repeat blood cultures; if positive, will repeat blood cultures again 05/26, after device extraction Follow up MERLIN If pt remains bacteremic post extraction, will add a second agent ID will continue to follow. Toni Meek MS-IV Cosigned by Rachael Ngo MD at 05/25/2025 7:18 PM EDT Associated attestation - Rachael Ngo MD - 05/25/2025 7:18 PM EDT Pt discussed on ID consultation rounds. Pt off the floor while rounding. Pt now in [facility] post procedure. Vitals reviewed. Pt afebrile. Repeat blood cultures from 05/24 remain NGTD. S pneumo isolate from sputum S to ceftriaxone. Continue vanc, ceftriaxone. Follow up repeat blood cultures. Follow up procedure note. Following. Rachael Ngo MD During the lead removal performed by the electrophysiology team and the EP lab, the cardiothoracic surgery team was present and on standby in the event that emergency surgical intervention was required. The services were not needed. However, a surgeon, and full operating room staff including perfusion were immediately and readily available should the need arise. Med Team Progress Note Krystina Markham : 1955(69 y.o.) Date: May 25, 2025 Med Team: Jourdan Attending: Dr. Duncan Chief Complaint: Acute Metabolic Encephalopathy Brief Hospital Course: Patient is a 69 y.o M w/ PMHx significant for COPD, HFrEF (last EF 21%, 11/2023) s/p ICD, A-fib on eliquis, Hx of DVT and PE, Hx of ETOH abuse who initially presented to the [facility] on 04/19/25 from home after patient was found by her ex at home minimally responsive and was having difficulty breathing. Patient was brought to [facility] via EMS and was given solumedrol/duoneb en route. Per EMS, patient seemed altered and had posturing w/ his L arm. EMS were unable to to get his L arm to relax as he was clenching his fingers w/ some tremors. Initial eval at [facility]; patient was febrile, hypertensive, tachycardic. CMP showed hyponatremia hypomagnesemia, HAGMA and an VIMAL. ProBNP 7,000 and initial troponin of 61. EKG w/o ischemic changes. Initial lactic acid 3.3, pro calcitonin 0.51. CBC showed leukocytosis. CT chest abdomen pelvis demonstrated infiltrate in the left posterior lung base suspicious for PNA. CTH w/o acute intracranial findings. CXR demonstrated pulmonary vascular congestion. Patient was initiated on cefepime and vancomycin at [facility]. Patient was intubated at [facility] and was transferred to [facility] for further evaluation and management. Patient was extubated on 05/22, currently stable on room air. ID following, currently on ceftriaxone and vanc. The patient was transferred to the general floor. Cardiology plan for removal of RIDES SUPERVISOR D with intra procedural MERLIN for 05/25/2025. The patient is undergoing a ICD removal with intra procedural MERLIN today. Subjective: - Overnight, the patient had 44 beats of Ventricular Tachycardia. The patient was self corrected into regular rhythm. - Currently, the patient is laying in bed comfortable. The patient denies any fevers, chills, diaphoresis, chest pain, shortness of breath, abdominal pain, constipation, nausea, diarrhea, or vomiting. The patient understands the plan of removing the ICD today and performing a MERLIN during the procedure. The patient understands and is agreeable. PRN meds used in last 24hrs: None Agree with resident/student history, independently interviewed, in addition: denies new concerns, aware of the plan for procedure today. Reviewed tele, was a monomorphic v tach a little before 7 pm yesterday, Mr. Markham denies any symptoms during this time. Review of Systems Constitutional: Negative for chills, diaphoresis, fatigue and fever. HENT: Negative. Eyes: Negative. Respiratory: Negative for cough, choking, chest tightness and shortness of breath. Cardiovascular: Negative for chest pain, palpitations and leg swelling. Gastrointestinal: Negative for abdominal distention, abdominal pain, constipation, diarrhea, nausea and vomiting. Endocrine: Negative. Genitourinary: Negative. Musculoskeletal: Negative. Skin: Negative. Allergic/Immunologic: Negative. Neurological: Negative. Hematological: Negative. Psychiatric/Behavioral: Negative. Scheduled Meds:Scheduled Meds[1] Continuous Infusions:Continuous Meds[2] Objective: BP 141/98 (BP Location: Right arm, Patient Position: Lying) Pulse 74 Temp 36.1 C (97 F) (Temporal) Resp 16 Ht 5' 8" (1.727 m) Wt 170 lb 10.2 oz (77.4 kg) SpO2 90% PF 44 L/min BMI 25.95 kg/m Physical Exam Vitals and nursing note reviewed. Exam conducted with a human resources talent manager present. Constitutional: General: He is awake. Appearance: Normal appearance. He is overweight. Cardiovascular: Rate and Rhythm: Normal rate and regular rhythm. Pulses: Normal pulses. Heart sounds: Normal heart sounds, S1 normal and S2 normal. Pulmonary: Effort: Pulmonary effort is normal. Breath sounds: Normal breath sounds and air entry. Abdominal: General: Abdomen is flat. Bowel sounds are normal. Palpations: Abdomen is soft. Skin: General: Skin is warm. Capillary Refill: Capillary refill takes less than 2 seconds. Neurological: General: No focal deficit present. Mental Status: He is alert and oriented to person, place, and time. Mental status is at baseline. Psychiatric: Attention and Perception: Attention normal. Mood and Affect: Mood normal. Speech: Speech normal. Behavior: Behavior is cooperative. Select Recent Labs BMP: Recent Labs 05/23/25 03105/24/25 0540 05/25/25 0510 NA 132* 126* 128* K 3.8 4.0 3.7 CL 100 98 98 CO2 24 19* 21* BUN 34* 22 19 CREATININE 1.03 0.78 0.83 CALCIUM 9.0 9.3 9.3 MG 1.8 1.7 1.8 PHOS 1.7* 2.2* 3.1 LFTs: Recent Labs 05/23/25 03105/24/25 0540 05/25/25 0510 AST 30 56* 123* ALT <6 20 69* PROT 6.0* 5.9* 5.9* ALBUMIN 2.7* 2.7* 2.7* BILITOT 0.4 0.5 0.3 ALKPHOS 90 96 100 Glucose: Recent Labs 05/22/25 1354 05/23/25 0311 05/24/25 0540 05/25/25 0510 GLUCOSE 135* 118* 98 106 Procal: No results for input(s): "PROCAL" in the last 72 hours. CBC: Recent Labs 05/23/25 0310 05/24/25 0540 05/25/25 0510 WBC 19.6* 15.0* 10.6 HGB 12.2* 12.5* 12.2* HCT 35.6* 35.2* 36.5* PLT 151 143 145 MCV 89.2 87.3 90.8 RDW 12.9 12.5 12.9 ABGs: No results for input(s): "PHART", "QLA0JGX", "PO2ART", "DJZ4JNZ", "SO2ART", "P5EHLOEA" in the last 72 hours. Lactic Acid: No results for input(s): "LACTATE" in the last 72 hours. INR: No results for input(s): "INR" in the last 72 hours. Cardiac Injury Profile: No results for input(s): "CKTOTAL", "CKMB", "TROPONINI", "TROPHSBASE", "TROPHS2", "BNP" in the last 72 hours. Notable Prior Labs: Lab Results Component Value Date TSH 0.57 05/20/2025 VITD25 17 (L) 07/17/2022 INR 1.2 (H) 09/12/2024 Notable Imaging: CT Chest/Abdomen/Pelvis- infiltrate in the left posterior lung base suspicious for pneumonia. Compression fractures of T6-T8 Notable Micro: Blood Culture Site 1 and 2- 05/22- Staphylococcus aureus, MRSA + Pending 05/24/2025 repeat blood cx Streptococcus Urine Antigen - Streptococcus pneumoniae Ag + Assessment and Plan: Septic shock 2/2 staph bacteremia and LLL pneumonia - resolved HFimpEF (EF 21% improved to EF 50% 05/20), biventricular failure has 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 Afib on eliquis Hx of DVT and PE - Cardiology consulted, appreciate recs - RIDES SUPERVISOR D removal and intra procedure MERLIN today - Continue crestor 40mg daily - Plan to resume metoprolol succinate 100mg daily, losartan 25mg daily, spironolactone 25 mg after procedure - Holding farxiga 5mg daily, resume on discharge - Hold eliquis 5mg BID, resume after procedure; NPO at midnight - MERLIN pending -Continue telemetry monitoring Staph bacteremia LLL pneumonia - ID following - Continue Vancomycin Day 4 - Continue ceftriaxone for 5 days total - streptococcus pneumonia on urine antigen and 05/21 resp cx - 05/22 blood Cx positive for gram positive cocci; repeat cultures pending Acute respiratory failure 2/2 LLL pneumonia Chronic respiratory failure on home O2 2/2 COPD - Extubated 05/22, currently stable on room air - Dulera BID - Singulair 10mg nightly - Prednisone 40mg daily total 5 days - Spiriva daily Acute encephalopathy, unknown baseline Alcohol use disorder Seizure like activity on initial presentation - EEG showed findings supportive of a moderate diffuse encephalopathy non-specific as to etiology. D/C'd 05/22. - Folic acid 1mg daily - Sertraline 100mg daily - Thiamine 100mg daily VTach - 44 Beats of Vtach over night on 05/24/25 - Repeat EKG this morning - K>4, Mg>2 - Likely occurred after holding rate control meds, will restart after procedure completion Hyponatremia - Likely secondary to alcohol use - Will get Serum Na and Osm, and Urine Na and Osm Resolved Problems: VIMAL - resolved Chronic Stable Problems and Follow Up Items: Dispo and Barriers to Discharge: Patient is not medically cleared for discharge. Will evaluate once 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 device removal and MERLIN. - Goals of Care: FULL CODE - DVT Prophylaxis: No VTE Prophylaxis Needed - Undergoing 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 removal today - GI Prophylaxis: Protonix daily - Diet: NPO [1] [Held by provider] apixaban, 5 mg, Oral, BID cefTRIAXone, 1,000 mg, IntraVENous, q24h chlorhexidine, , Topical, Daily collagenase, , Topical, Daily dapagliflozin, 5 mg, Oral, Daily folic acid, 1 mg, Oral, Daily losartan, 25 mg, Oral, Daily [Held by provider] metoprolol succinate XL, 50 mg, Oral, Daily mometasone-formoterol, 2 puff, Inhalation, BID montelukast, 10 mg, Oral, Nightly mupirocin, 1 Application, Nasal, BID pantoprazole (ProtoNix) 40 mg in sodium chloride (PF) 0.9 % 10 mL injection, 40 mg, IntraVENous, Daily rosuvastatin, 40 mg, Oral, Daily sertraline, 100 mg, Oral, Daily sodium chloride 0.9%, 5-40 mL, IntraCATHeter, q8h spironolactone, 25 mg, Oral, Daily thiamine, 100 mg, Oral, Daily tiotropium, 2 puff, Inhalation, Daily [Held by provider] torsemide, 40 mg, Oral, BID vancomycin, 1,500 mg, IntraVENous, q24h [2] Cosigned by Mitzy Duncan MD at 05/25/2025 1:54 PM EDT Associated attestation - Mitzy Duncan MD - 05/25/2025 1:54 PM EDT Attending Physician Statement I have discussed the care of Krystina Markham, including pertinent history and exam findings, with the resident/student. I have seen and examined the patient and the singh elements of all parts of the encounter have been performed by me. I agree with the resident/student note with my corrections and additions (in blue). (GC Modifier) Complexity of problems addressed: Bacteremia requiring IV antibiotics Drug therapy requiring intensive monitoring for toxicity: Vancomycin - monitoring serum creatinine Pharmacy to Dose Vancomycin - Progress Note Lab Results Component Value Date CREATININE 0.83 05/25/2025 BUN 19 05/25/2025 WBC 10.6 05/25/2025 VANCOTROUGH 27.0 05/24/2025 Doses, serum creatinine, and vancomycin levels interfaced automatically to [employer] and data has been analyzed and interpreted. Infectious Diagnosis: CAP Est CrCl: 92 mL/min (Cockcroft-Gault) Assessment: Current regimen vancomycin 1500 mg every 24 hours (19.4 mg/kg) Predicted AUC = 471 mg/L*hr (goal 400-600 mg/L*hr) PAUC = 89% (probability that AUC is >400 mg/L*hr) Pconc = <5% (probability that Ctrough is above 20 mcg/mL (toxicity)) Plan: Is the current dose therapeutic? [x] Yes - obtain next level on 05/27 unless predicted AUC is sub-/supra-therapeutic or change in serum creatinine. Trend serum creatinine. Trend AUC using Bayesian Modeling. Orders placed. DATE: 05/25/25 TIME: 7:22 AM Dominga Carolina PharmD Clinical Pharmacist Available via Secure Chat Med Team Progress Note Krystinafilippo Markham : 1955(69 y.o.) Date: May 24, 2025 Med Team: Jourdan Attending: Dr. Duncan Chief Complaint: Acute Metabolic Encephalopathy Brief Hospital Course: Patient is a 69 y.o M w/ PMHx significant for COPD, HFrEF (last EF 21%, 11/2023) s/p ICD, A-fib on eliquis, Hx of DVT and PE, Hx of ETOH abuse who initially presented to the [facility] on 04/19/25 from home after patient was found by her ex at home minimally responsive and was having difficulty breathing. Patient was brought to [facility] via EMS and was given solumedrol/duoneb en route. Per EMS, patient seemed altered and had posturing w/ his L arm. EMS were unable to to get his L arm to relax as he was clenching his fingers w/ some tremors. Initial eval at [facility]; patient was febrile, hypertensive, tachycardic. CMP showed hyponatremia hypomagnesemia, HAGMA and an VIMAL. ProBNP 7,000 and initial troponin of 61. EKG w/o ischemic changes. Initial lactic acid 3.3, pro calcitonin 0.51. CBC showed leukocytosis. CT chest abdomen pelvis demonstrated infiltrate in the left posterior lung base suspicious for PNA. CTH w/o acute intracranial findings. CXR demonstrated pulmonary vascular congestion. Patient was initiated on cefepime and vancomycin at [facility]. Patient was intubated at [facility] and was transferred to [facility] for further evaluation and management. Patient was extubated on 05/22, currently stable on room air. ID following, currently on ceftriaxone and vanc. The patient was transferred to the general floor. Cardiology plan for removal of RIDES SUPERVISOR D with intra procedural MERLIN for 05/25/2025. Subjective: - No acute events overnight. - Currently, the patient is laying in bed comfortable. The patient denies any fevers, chills, nausea, vomiting, diarrhea, constipation, chest pain, shortness of breath, abdominal pain. He states taht he is feeling better. The patient has had a good appetite and doesn't have any questions. Discussed the plan with the patient and he is agreeable. PRN meds used in last 24hrs: None Review of Systems Constitutional: Negative for chills and fever. HENT: Negative for trouble swallowing. Respiratory: Negative for cough and shortness of breath. Cardiovascular: Negative for chest pain and palpitations. Gastrointestinal: Negative for abdominal pain, constipation, diarrhea, nausea and vomiting. Genitourinary: Negative for dysuria. Neurological: Negative for light-headedness. Scheduled Meds:Scheduled Meds[1] Continuous Infusions:Continuous Meds[2] Objective: BP 134/89 Pulse 79 Temp 37.1 C (98.8 F) (Temporal) Resp 18 Ht 5' 8" (1.727 m) Wt 170 lb 10.2 oz (77.4 kg) SpO2 91% PF 44 L/min BMI 25.95 kg/m Physical Exam Vitals and nursing note reviewed. Exam conducted with a human resources talent manager present. Constitutional: General: He is awake. Appearance: He is overweight. He is ill-appearing. Cardiovascular: Rate and Rhythm: Normal rate and regular rhythm. Pulses: Normal pulses. Heart sounds: Normal heart sounds, S1 normal and S2 normal. Pulmonary: Effort: Pulmonary effort is normal. Breath sounds: Normal breath sounds and air entry. Abdominal: General: Abdomen is flat. Bowel sounds are normal. Palpations: Abdomen is soft. Neurological: General: No focal deficit present. Mental Status: He is alert and oriented to person, place, and time. Mental status is at baseline. Psychiatric: Attention and Perception: Attention normal. Mood and Affect: Mood normal. Speech: Speech normal. Behavior: Behavior is cooperative. Select Recent Labs BMP: Recent Labs 05/22/25 0834 05/22/25 1354 05/23/25 0311 05/24/25 0540 NA 130* 130* 132* 126* K 3.7 3.4* 3.8 4.0 CL 95* 96* 100 98 CO2 22* 25 24 19* BUN 26* 24* 34* 22 CREATININE 1.20 1.06 1.03 0.78 CALCIUM 9.7 9.2 9.0 9.3 MG 2.0 -- 1.8 1.7 PHOS 3.8 -- 1.7* 2.2* LFTs: Recent Labs 05/23/25 0311 05/24/25 0540 AST 30 56* ALT <6 20 PROT 6.0* 5.9* ALBUMIN 2.7* 2.7* BILITOT 0.4 0.5 ALKPHOS 90 96 Glucose: Recent Labs 05/21/25 1614 05/21/25 2007 05/21/25 2352 05/22/25 0358 05/22/25 0834 05/22/25 1354 05/23/25 0311 05/24/25 0540 GLUCOSE 121* 134* 145* 133* 151* 135* 118* 98 CBC: Recent Labs 05/22/25 0358 05/23/25 0310 05/24/25 0540 WBC 23.3* 19.6* 15.0* HGB 13.4 12.2* 12.5* HCT 38.7* 35.6* 35.2* PLT 139* 151 143 MCV 88.0 89.2 87.3 RDW 12.8 12.9 12.5 ABGs: Recent Labs 05/22/25 0326 PHART 7.445 [id number] 36.5 PO2ART 107.9* [id number] 24.5 [id number] Ventilator \\ Notable Prior Labs: Lab Results Component Value Date TSH 0.57 05/20/2025 VITD25 17 (L) 07/17/2022 INR 1.2 (H) 09/12/2024 Notable Imaging: CT Chest/Abdomen/Pelvis- infiltrate in the left posterior lung base suspicious for pneumonia. Compression fractures of T6-T8 Notable Micro: Blood Culture Site 1 and 2- 05/22- Staphylococcus aureus, MRSA + Pending 05/24/2025 repeat blood cx Streptococcus Urine Antigen - Streptococcus pneumoniae Ag + Assessment and Plan: Septic shock 2/2 staph bacteremia and LLL pneumonia, resolved HFimpEF (EF 21% improved to EF 50% 05/20), biventricular failure has 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 Afib on eliquis Hx of DVT and PE - Cardiology consulted, appreciate recs - RIDES SUPERVISOR D removal and intra procedure MERLIN scheduled 05/25 - Continue crestor 40mg daily - Plan to resume metoprolol succinate 100mg daily, losartan 25mg daily, spironolactone 25 mg after procedure - Holding farxiga 5mg daily, resume on discharge - Hold eliquis 5mg BID, resume after procedure; NPO at midnight Staph bacteremia and LLL pneumonia - ID following - Continue Vancomycin Day 4 - Continue ceftriaxone for 5 days total - streptococcus pneumonia on urine antigen and 05/21 resp cx - 05/22 blood Cx positive for gram positive cocci; repeat cultures pending Acute respiratory failure 2/2 LLL pneumonia Chronic respiratory failure on home O2 2/2 COPD - Extubated 05/22, currently stable on room air - Dulera BID - Singulair 10mg nightly - prednisone 40mg daily total 5 days - Spiriva daily Acute encephalopathy, unknown baseline Alcohol use disorder Seizure like activity on initial presentation - EEG showed findings supportive of a moderate diffuse encephalopathy non-specific as to etiology. D/C'd 05/22. - Folic acid 1mg daily - Sertraline 100mg daily - Thiamine 100mg daily Resolved Problems: VIMAL - resolved Chronic Stable Problems and Follow Up Items: DVT Dispo and Barriers to Discharge: Patient is not medically cleared for discharge at this time. Patient will undergo a 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 device removal and MERLIN - Goals of Care: FULL CODE - DVT Prophylaxis: Eliquis - GI Prophylaxis: Protonix daily - Diet: General [1] [Held by provider] apixaban, 5 mg, Oral, BID cefTRIAXone, 1,000 mg, IntraVENous, q24h chlorhexidine, , Topical, Daily [Held by provider] dapagliflozin, 5 mg, Oral, Daily folic acid, 1 mg, Oral, Daily losartan, 25 mg, Oral, Daily magnesium oxide, 200 mg, Oral, BID metoprolol succinate XL, 100 mg, Oral, Daily mometasone-formoterol, 2 puff, Inhalation, BID montelukast, 10 mg, Oral, Nightly mupirocin, 1 Application, Nasal, BID pantoprazole (ProtoNix) 40 mg in sodium chloride (PF) 0.9 % 10 mL injection, 40 mg, IntraVENous, Daily phosphorus, 500 mg, Oral, q4h predniSONE, 40 mg, Oral, Daily rosuvastatin, 40 mg, Oral, Daily sertraline, 100 mg, Oral, Daily sodium chloride 0.9%, 5-40 mL, IntraCATHeter, q8h [Held by provider] spironolactone, 25 mg, Oral, Daily thiamine, 100 mg, Oral, Daily tiotropium, 2 puff, Inhalation, Daily [Held by provider] torsemide, 40 mg, Oral, BID vancomycin, 1,500 mg, IntraVENous, q24h [2] Cosigned by Mitzy Duncan MD at 05/24/2025 3:52 PM EDT Associated attestation - Mitzy Duncan MD - 05/24/2025 3:52 PM EDT Attending Physician Statement I have discussed the care of Krystina Markham, including pertinent history and exam findings, with the resident/student. I have seen and examined the patient and the singh elements of all parts of the encounter have been performed by me. I agree with the resident/student note with my corrections and additions (in blue). (GC Modifier) Complexity of problems addressed: Sepsis Drug therapy requiring intensive monitoring for toxicity: Vancomycin - monitoring serum creatinine Images from the original note were not included. [facility] - Infectious Diseases Attending Progress Note Subjective: Following for bacteremia. Pt about to eat lunch when seen. Pt has no complaints. Denies itching, rashes. No nausea, vomiting, diarrhea. Chart, vitals, labs reviewed. Plan for 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 extraction with intraprocedural MERLIN 05/25. Objective: Vitals: Patient Vitals for the past 24 hrs: BP Temp Temp src Pulse Resp SpO2 05/24/25 0739 134/89 37.1 C (98.8 F) Temporal 79 18 91 % 05/23/25 1844 136/79 37.2 C (98.9 F) Temporal 95 22 91 % 05/23/25 1614 121/78 37.1 C (98.8 F) Temporal 73 20 92 % 05/23/25 1300 136/87 -- -- 74 23 98 % Physical Exam Vitals and nursing note reviewed. Constitutional: General: He is not in acute distress. Appearance: He is normal weight. He is ill-appearing. He is not toxic-appearing or diaphoretic. HENT: Head: Normocephalic and atraumatic. Right Ear: External ear normal. Left Ear: External ear normal. Nose: Nose normal. No rhinorrhea. Comments: ?telangiectasis nose Eyes: General: No scleral icterus. Right eye: No discharge. Left eye: No discharge. Conjunctiva/sclera: Conjunctivae normal. Cardiovascular: Rate and Rhythm: Normal rate and regular rhythm. Pulmonary: Effort: Pulmonary effort is normal. Breath sounds: Normal breath sounds. Abdominal: Palpations: Abdomen is soft. Tenderness: There is no abdominal tenderness. Skin: General: Skin is warm and dry. Neurological: Mental Status: He is alert and oriented to person, place, and time. Mental status is at baseline. Psychiatric: Mood and Affect: Mood normal. Behavior: Behavior normal. Thought Content: Thought content normal. Judgment: Judgment normal. Labs: Lab Results Component Value Date/Time NA 126 (L) 05/24/2025 0540 K 4.0 05/24/2025 0540 CL 98 05/24/2025 0540 CO2 19 (L) 05/24/2025 0540 CO2 36 (H) 10/14/2024 1440 BUN 22 05/24/2025 0540 BUN 20 10/14/2024 1440 CREATININE 0.78 05/24/2025 0540 CREATININE 0.60 (L) 10/14/2024 1440 GLUCOSE 98 05/24/2025 0540 GLUCOSE 110 (H) 10/14/2024 1440 CALCIUM 9.3 05/24/2025 0540 CALCIUM 9.9 10/14/2024 1440 PROT 5.9 (L) 05/24/2025 0540 BILITOT 0.5 05/24/2025 0540 ALKPHOS 96 05/24/2025 0540 AST 56 (H) 05/24/2025 0540 ALT 20 05/24/2025 0540 PROCAL 0.51 (H) 05/20/2025 2220 PROCAL 0.04 08/19/2024 1947 PROCAL 0.18 (H) 11/11/2023 2351 Lab Results Component Value Date/Time WBC 15.0 (H) 05/24/2025 0540 HGB 12.5 (L) 05/24/2025 0540 HGB 13.9 05/22/2025 0326 HCT 35.2 (L) 05/24/2025 0540 PLT 143 05/24/2025 0540 GRANULOCYTES 70.7 08/25/2021 0504 LYMPHOPCT 5.2 (L) 05/24/2025 0540 LYMPHOPCT 0 (L) 05/20/2025 2220 MONOPCT 5.0 05/24/2025 0540 MONOPCT 0 (L) 05/20/2025 2220 LABEOS 3.6 08/25/2021 0504 BASOPCT 0.1 05/24/2025 0540 NEUTROABS 13.3 (H) 05/24/2025 0540 Micro: 05/24 BC 2/2 in process 05/22 BC 2 Staph aureus 05/21 respiratory culture elsa, S pneumo 05/21 pneumonia PCR S pneumo 05/20 Legionella urine antigen negative, Pneumococcus urine antigen positive 05/20 4plex negative 05/20 RPP negative 05/20 BC 2/2 MRSA Lines: PIV Radiography/Echo/Other: 05/23 CXR Atelectasis at the lung bases. Chronic obstructive pulmonary disease 05/21 TTE Left Ventricle Left ventricle is mildly dilated. Mildly increased wall thickness. Low normal left ventricular systolic function. EF by 2D Simpsons Biplane is 50%. Global longitudinal strain is reduced with a value of -13.3%. See diagram for wall motion findings. Indeterminate diastolic function due to atrial fibrillation. Right Ventricle Right ventricle is mildly dilated. ICD lead present in the right ventricle.Normal systolic function. Left Atrium Left atrium size is severely increased (LA volume index >48 mL/m2).LA Vol Index is 57 ml/m2. Interatrial Septum No interatrial shunt visualized on color Doppler. Right Atrium Right atrium is severely dilated. Aortic Valve Trileaflet. Mildly calcified cusps. No regurgitation. No stenosis. Mitral Valve Valve structure is normal. No regurgitation. No stenosis noted. Tricuspid Valve Valve structure is normal. Mild (1+) regurgitation. Unable to accurately assess RVSP due to not being able to assess RA pressure. RVSP is at least 32mmHg. Pulmonic Valve The pulmonic valve visualization is suboptimal but appears to be functioning normally. Trace regurgitation. Pulmonary Artery Pulmonary artery was not well visualized. Aorta Normal sized sinuses of Valsalva and ascending aorta when adjusted to BSA. IVC/Hepatic Veins IVC is dilated. Patient is ventilated, cannot use IVC diameter to estimate right atrial pressure. Pericardium No pericardial effusion. 05/20 CT c/a/p Infiltrate in the left posterior lung base suspicious for pneumonia. Again seen are compression fractures of T6-T8. Interval development of a compression fracture of T9. 05/20 CT head 1. No acute intracranial findings. 2. Probable chronic ischemic and atrophic changes. Antimicrobials, Start/End Dates: Vanc ceftriaxone Impression: 1) MRSA bacteremia; blood cultures not yet clear 2) S pneumo pneumonia 3) HF/NICM s/p 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; awaiting device extraction 05/25 4) Septic shock, resolved 5) VIMAL, resolved 6) COPD 7) Alcohol abuse 8) Tobacco use 9) History of non compliance Plan: - continue vanc - ceftriaxone renewed - follow up repeat blood cultures; if positive, will repeat blood cultures again 05/26, after device extraction - follow up MERLIN - if pt remains bacteremia post extraction, will add a second agent - following Rachael Ngo MD Total time of 50 minutes on this day of encounter spent on, but not limited to review of tests, medical records , complex history , counseling and education (patient, family member, caregiver), ordering medications, tests, and procedures, communication with other health care professions, and independent interpretation of tests. [facility] Cardiology /Electrophysiology Progress Note HPI / Interval History: In summary Mr Markham is 69-year-old male who presented from home after he was found to be in respiratory distress. He has a medical history of HFrEF secondary nonischemic cardiomyopathy status post RIDES SUPERVISOR/D, permanent A-fib, COPD on home O2, alcohol abuse, tobacco abuse. Upon presentation he was febrile, hyponatremic and there is concern for septic shock as well as left lower lobe pneumonia and alcohol withdrawals. He initially had to be intubated, his infectious workup was notable for MRSA bacteremia,U Ags+ S pneumoniae. He had a TTE on 05/20/2025 which did not show any obvious signs of vegetation however did show EF of 50% which is improved from 21% in the past. His repeat blood cultures from admission show gram-positive cocci. He is on Rocephin and vancomycin per ID. His home GDMT was held initially given hypotension, septic shock, VIMAL by his primary team. This morning he has no complaints, he denies any chest pain, shortness of breath, fevers, chills. He looks well compensated on exam he is not grossly volume overloaded, JVP is difficult to assess given TR. His telemetry shows A-fib with adequate rates, PVCs. His hyponatremia is still persistent, his VIMAL is resolved. He still has leukocytosis that is improving. Assessment/Plan HF NYHA Class [] I [] II [] III [] IV []Unable to assess [] N/A MRSA bacteremia, 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 in place. He is initial cultures were positive for MRSA bacteremia, repeat cultures showed gram-positive cocci His TTE did not show any obvious sources of vegetation ID is following for antibiotic recommendations Plan for RIDES SUPERVISOR D removal with intraprocedural MERLIN for 05/25/2025, NPO at Midnight, hold eliquis On vancomycin and ceftriaxone per ID, appreciate ID recommendations regarding antibiotics 2. HFimpEF, 2/2 NICM His prior EF is 21%, repeat EF 50% His home GDMT includes losartan 25, Toprol 100, spironolactone 25, Farxiga 5 daily, he also has been prescribed torsemide 40 twice daily for diuresis His VIMAL and hypotension have resolved, his hyponatremia still persistent. Resume losartan, spironolactone, and home beta blockade post procedure Hold SGLT2i for now, resume on dc Hold home torsemide for now - on dc can likely be dc with 40 torsemide daily, we will arrange for close follow up with HF as an op 3. COPD Continue dulera,Singulair, Spiriva and prn Duonebs per primary he patient has staph bacteremia and a 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 in place. He will need device extraction regardless of visible vegetations on the leads given the organism. We will arrange an extraction procedure and a MERLIN during the time of the extraction tomorrow Risks and benefits were discussed and patient agrees. We will follow the patient while in the hospital. I, Karthik Mendoza MD, saw and evaluated the patient. I personally obtained the singh and critical portions of the history and physical exam. I reviewed the chart, the fellow's documentation, and discussed the patient with the fellow. I agree with the fellow's medical decision making and have edited the note to reflect my clinical findings and my assessment and plan. Medications: Scheduled Meds[1] Infusion Medications: Continuous Meds[2] Physical Examination: Vitals: 05/23/25 1300 05/23/25 1614 05/23/25 1844 05/24/25 0739 BP: 136/87 121/78 136/79 134/89 BP Location: Patient Position: Pulse: 74 73 95 79 Resp: 23 20 22 18 Temp: 37.1 C (98.8 F) 37.2 C (98.9 F) 37.1 C (98.8 F) TempSrc: Temporal Temporal Temporal SpO2: 98% 92% 91% 91% Weight: Height: PF: Intake/Output Summary (Last 24 hours) at 05/24/2025 0917 Last data filed at 05/23/2025 1500 Gross per 24 hour Intake 1350 ml Output -- Net 1350 ml Patient Vitals for the past 168 hrs: Weight Weight Method 05/22/25 0500 170 lb 10.2 oz (77.4 kg) Bed scale 05/21/25 0904 174 lb (78.9 kg) -- 05/21/25 0701 174 lb 2.6 oz (79 kg) Bed scale 05/21/25 0305 167 lb 1.7 oz (75.8 kg) -- 05/20/25 2341 200 lb (90.7 kg) -- Physical Exam Constitutional: NAD Psychiatric: Alert. Medical insight poor Neck: No JVD Respiratory: Lungs are clear Heart: irregular ; Nl S1 and S2, no murmur, no rub, gallop Abdomen: NABS; soft, non-tender, non-distended Extremities: no LE edema Skin: Warm to touch and well perfused Laboratory Tests: TROPONIN I, CONVENTIONAL SENSITIVITY CK Date Value Ref Range Status 05/21/2025 86 30 - 185 U/L Final 11/01/2024 150 30 - 185 U/L Final 02/14/2024 110 30 - 170 U/L Final 12/30/2022 223 (H) 30 - 170 U/L Final 12/29/2022 448 (H) 30 - 170 U/L Final CKMB Date Value Ref Range Status 02/14/2024 4.1 0.0 - 4.4 ng/mL Final TROPONIN I Date Value Ref Range Status 02/14/2024 0.025 <0.034 ng/mL Final 02/13/2024 0.026 <0.034 ng/mL Final 02/13/2024 0.023 <0.034 ng/mL Final 11/12/2023 0.016 <0.034 ng/mL Final 11/11/2023 0.017 <0.034 ng/mL Final TROPONIN I, HIGH SENSITIVITY Troponin HS Serial Baseline Date Value Ref Range Status 05/20/2025 61 (H) <=35 ng/L Final Comment: In individuals presenting with symptoms > 2h, a baseline troponin <= 5 ng/L suggests acute cardiac injury is unlikely and further serial testing is generally not indicated. 11/01/2024 16 <=35 ng/L Final Comment: In individuals presenting with symptoms > 2h, a baseline troponin <= 5 ng/L suggests acute cardiac injury is unlikely and further serial testing is generally not indicated. 09/10/2024 37 (H) <=35 ng/L Final 08/19/2024 37 (H) <=35 ng/L Final 2h Troponin HS (Serial 2nd Troponin) Date Value Ref Range Status 05/21/2025 92 (H) <=35 ng/L Final Comment: 2h troponin (2nd troponin) samples collected between 1h 40 min and 2h and 20 min of the baseline collection time can be utilized to interpret delta troponins as per [employer] algorithms. Samples collected outside this timeframe need to be interpreted clinically. Rising or falling troponin delta greater than 15 ng/L as compared to baseline value is significant for acute cardiac injury. 11/01/2024 20 <=35 ng/L Final Comment: Rising or falling troponin delta between 2 - 15 ng/L as compared to baseline value requires a 3rd serial troponin 09/10/2024 38 (H) <=35 ng/L Final 08/19/2024 35 <=35 ng/L Final Absolute Delta (2nd - Baseline Troponin) Date Value Ref Range Status 09/10/2024 1 <=2 ng/L Final Comment: This specimen was collected more than 20 minutes away from the 2 hour target. Use of this delta with the 2 hour troponin algorithm is not recommended, individualized clinical assessment is needed. A troponin delta greater than or equal to 15 ng/L is significant for acute cardiac injury. Values less than 15 but greater than 2 are an intermediate change requiring a 3rd serial troponin to be drawn. Values less than or equal to 2 indicate acute cardiac injury is not likely, see external algorithms for further clinical guidance. 08/19/2024 -2 <=2 ng/L Final Comment: A troponin delta greater than or equal to 15 ng/L is significant for acute cardiac injury. Values less than 15 but greater than 2 are an intermediate change requiring a 3rd serial troponin to be drawn. Values less than or equal to 2 indicate acute cardiac injury is not likely, see external algorithms for further clinical guidance. 4h Troponin HS (Serial 3rd Troponin) Date Value Ref Range Status 11/01/2024 24 <=35 ng/L Final Comment: Rising or falling troponin delta between 2 - 15 ng/L as compared to 2h troponin value requires further evaluation. No results found for: "TROPDELTSEC" Recent Labs 05/22/25 0358 05/22/25 0834 05/22/25 1354 05/23/25 03105/24/25 0540 NA 127* 130* 130* 132* 126* K 5.2* 3.7 3.4* 3.8 4.0 CL 95* 95* 96* 100 98 CO2 19* 22* 25 24 19* BUN 24* 26* 24* 34* 22 CREATININE 1.20 1.20 1.06 1.03 0.78 Recent Labs 05/22/25 0326 05/22/25 0358 05/23/25 0310 05/24/25 0540 WBC -- 23.3* 19.6* 15.0* HGB 13.9 13.4 12.2* 12.5* HCT -- 38.7* 35.6* 35.2* MCV -- 88.0 89.2 87.3 PLT -- 139* 151 143 No results for input(s): "BNP" in the last 72 hours. No results for input(s): "TRIG", "HDL", "LDLCALC", "CHOL" in the last 72 hours. No results found for: LDLCHOLESTER Lab Results Component Value Date TSH 0.57 05/20/2025 EF BP Date Value Ref Range Status 05/21/2025 50 (A) 55 - 100 % Final 05/20/25 TRANSTHORACIC ECHOCARDIOGRAM (TTE) COMPLETE (CONTRAST/BUBBLE/3D PRN) 05/21/2025 11:34 AM (Final) Interpretation Summary Left Ventricle: Left ventricle is mildly dilated. Mildly increased wall thickness. Low normal left ventricular systolic function. EF by 2D Simpsons Biplane is 50%. Global longitudinal strain is reduced with a value of -13.3%. See diagram for wall motion findings. Indeterminate diastolic function due to atrial fibrillation. Right Ventricle: Right ventricle is mildly dilated. ICD lead present in the right ventricle. Normal systolic function. Left Atrium: Left atrium size is severely increased (LA volume index >48 mL/m2).LA Vol Index is 57 ml/m2. Right Atrium: Right atrium is severely dilated. No significant valvular abnormalities. In comparison to the previous study on 11/12/2023, LVEF has improved. Signed by: Charlie Robbins MD on 05/21/2025 11:34 AM Other reports reviewed: Cardiac Tests: ECG: Tracing reviewed. Telemetry findings reviewed: Afib rates around 80, frequent pvc EF BP Date Value Ref Range Status 05/21/2025 50 (A) 55 - 100 % Final Toni Liz DO Date Of Service 05/24/2025 [1] [Held by provider] apixaban, 5 mg, Oral, BID calcium gluconate, 2,000 mg, IntraVENous, Once cefTRIAXone, 1,000 mg, IntraVENous, q24h chlorhexidine, , Topical, Daily [Held by provider] dapagliflozin, 5 mg, Oral, Daily folic acid, 1 mg, Oral, Daily [Held by provider] losartan, 25 mg, Oral, Daily magnesium oxide, 200 mg, Oral, BID [Held by provider] metoprolol succinate XL, 100 mg, Oral, Daily mometasone-formoterol, 2 puff, Inhalation, BID montelukast, 10 mg, Oral, Nightly mupirocin, 1 Application, Nasal, BID pantoprazole (ProtoNix) 40 mg in sodium chloride (PF) 0.9 % 10 mL injection, 40 mg, IntraVENous, Daily phosphorus, 500 mg, Oral, q4h predniSONE, 40 mg, Oral, Daily rosuvastatin, 40 mg, Oral, Daily sertraline, 100 mg, Oral, Daily sodium chloride 0.9%, 5-40 mL, IntraCATHeter, q8h [Held by provider] spironolactone, 25 mg, Oral, Daily thiamine, 100 mg, Oral, Daily tiotropium, 2 puff, Inhalation, Daily [Held by provider] torsemide, 40 mg, Oral, BID vancomycin, 1,500 mg, IntraVENous, q24h [2] Images from the original note were not included. PHYSICAL THERAPY [facility] Name/MRN: Krystina Markham ([id number]) Date: 05/24/2025 PT will sign off of this patient for the following reason(s): PT order states eval and treat if Keegan activity/mobility < or equal to 2. Current activity/mobility scores of 3. No PT eval indicated - PT will sign off. Noemy Holt PT Pharmacy to Dose Vancomycin - Progress Note Lab Results Component Value Date CREATININE 1.03 05/23/2025 BUN 34 (H) 05/23/2025 WBC 15.0 (H) 05/24/2025 VANCOTROUGH 27.0 05/24/2025 Doses, serum creatinine, and vancomycin levels interfaced automatically to Smart[employer] - [employer] and data has been analyzed and interpreted. Infectious Diagnosis: CAP Est CrCl: 66 mL/min (Cockcroft-Gault) Assessment: Current regimen vancomycin 1500 mg every 24 hours (19.4 mg/kg) Predicted AUC = 524 mg/L*hr (goal 400-600 mg/L*hr) PAUC = >95% (probability that AUC is >400 mg/L*hr) Pconc = <5% (probability that Ctrough is above 20 mcg/mL (toxicity)) Plan: Is the current dose therapeutic? [x] Yes - obtain next level on 05/27 unless predicted AUC is sub-/supra-therapeutic or change in serum creatinine. Trend serum creatinine. Trend AUC using Bayesian Modeling. Orders placed. DATE: 05/24/25 TIME: 7:53 AM Dominga Carolina PharmD Clinical Pharmacist Available via Secure Chat Pharmacy to Dose Vancomycin - Progress Note Lab Results Component Value Date CREATININE 1.03 05/23/2025 BUN 34 (H) 05/23/2025 WBC 19.6 (H) 05/23/2025 VANCOTROUGH 29.5 05/22/2025 Doses, serum creatinine, and vancomycin levels interfaced automatically to Smart[employer] - [employer] and data has been analyzed and interpreted. Infectious Diagnosis: CAP Est CrCl: 74 mL/min (Cockcroft-Gault) Assessment: Current regimen vancomycin 1500 mg every 24 hours Predicted AUC = 501 mg/L*hr (goal 400-600 mg/L*hr) PAUC = 93% (probability that AUC is >400 mg/L*hr) Pconc = <5% (probability that Ctrough is above 20 mcg/mL (toxicity)) Plan: Is the current dose therapeutic? [x] Yes - VIMAL is resolving so will obtain next level tomorrow 05/24 to ensure therapeutic dosing Trend serum creatinine. Trend AUC using Bayesian Modeling. Orders placed. DATE: 05/23/25 TIME: 3:06 PM Olya Arriola RPh Clinical Pharmacist Available via Secure Chat ICU Transfer Checklist Transfer Med Reconciliation (resume home meds if able, convert to PO if able) Complete Antibiotics (name, indication, duration, convert to PO if able) Yes, addressed in today's progress note Steroid (indication, duration, convert to PO if able) Yes, addressed in today's progress note Anticipated [place] Medications (ICU initiated) or Dose Changes and Indication Yes, addressed in today's progress note Permanently Discontinued Home Medications and Reason for medication contraindication Yes, addressed in today's progress note Polanco Catheter (please remove if able. Note: place DC order) No Central Line (please remove if able. Note: place DC order) No Transfer Discussed with: Dr. Coles If additional questions for ICU team within 24 hours of ICU transfer, page Dr. Love for clarifications. [facility] - Infectious Diseases Attending Progress Note Subjective: No acute events- transferred to regular floor, an denies PARADA, N/V/D. No cough or SOB. No myalgia or arthralgia. No focal weakness. Admits to poor compliance with meds and not following up with PCP. Objective: Vitals: Patient Vitals for the past 24 hrs: BP Temp Temp src Pulse Resp SpO2 05/23/25 0900 112/71 -- -- 97 (!) 26 -- 05/23/25 0800 125/96 36.4 C (97.6 F) -- 106 (!) 26 98 % 05/23/25 0700 146/91 -- -- 95 (!) 27 -- 05/23/25 0600 143/71 -- -- 93 (!) 26 100 % 05/23/25 0500 134/77 -- -- 100 25 100 % 05/23/25 0400 128/69 36.4 C (97.5 F) Temporal 98 23 100 % 05/23/25 0300 141/93 -- -- 91 25 100 % 05/23/25 0200 122/78 -- -- 94 25 100 % 05/23/25 0100 104/61 -- -- 85 24 100 % 05/23/25 0000 114/88 36.1 C (97 F) Temporal 82 (!) 27 100 % 05/22/25 2300 101/72 -- -- 71 (!) 26 100 % 05/22/25 2200 104/70 -- -- 84 22 100 % 05/22/25 2100 107/61 -- -- 68 24 100 % 05/22/25 2000 117/66 36.1 C (97 F) Temporal 85 (!) 26 100 % 05/22/25 1900 104/55 -- -- 89 22 97 % 05/22/25 1800 96/69 -- -- 99 23 97 % 05/22/25 1700 93/65 36.1 C (97 F) Temporal 69 23 98 % 05/22/25 1600 105/63 -- -- 85 25 -- 05/22/25 1500 103/63 -- -- 62 17 -- 05/22/25 1400 122/65 -- -- 63 20 95 % 05/22/25 1300 124/77 -- -- 70 18 98 % 05/22/25 1230 -- 36.1 C (97 F) Temporal 70 19 (!) 88 % 05/22/25 1225 -- -- -- 69 16 (!) 84 % 05/22/25 1200 109/66 -- -- 61 18 (!) 89 % Physical Exam Vitals reviewed. Constitutional: General: He is not in acute distress. Appearance: He is ill-appearing (chronically but unlabored). Eyes: Extraocular Movements: Extraocular movements intact. Cardiovascular: Rate and Rhythm: Normal rate and regular rhythm. Heart sounds: Normal heart sounds. No murmur (ICD pocket benign) heard. Pulmonary: Effort: Pulmonary effort is normal. No respiratory distress. Breath sounds: Normal breath sounds. No wheezing or rhonchi. Abdominal: General: There is distension. Palpations: Abdomen is soft. Tenderness: There is no abdominal tenderness. Musculoskeletal: General: No swelling. Cervical back: Neck supple. Right lower leg: No edema. Left lower leg: No edema. Skin: General: Skin is dry. Coloration: Pallor: dry flaking skin on face. Findings: No erythema or rash. Neurological: General: No focal deficit present. Mental Status: He is alert and oriented to person, place, and time. Psychiatric: Mood and Affect: Mood normal. Thought Content: Thought content normal. Labs: Lab Results Component Value Date/Time NA 132 (L) 05/23/2025 0311 K 3.8 05/23/2025 0311 CL 100 05/23/2025 0311 CO2 24 05/23/2025 0311 CO2 36 (H) 10/14/2024 1440 BUN 34 (H) 05/23/2025 0311 BUN 20 10/14/2024 1440 CREATININE 1.03 05/23/2025 0311 CREATININE 0.60 (L) 10/14/2024 1440 GLUCOSE 118 (H) 05/23/2025 0311 GLUCOSE 110 (H) 10/14/2024 1440 CALCIUM 9.0 05/23/2025 0311 CALCIUM 9.9 10/14/2024 1440 PROT 6.0 (L) 05/23/2025 0311 BILITOT 0.4 05/23/2025 0311 ALKPHOS 90 05/23/2025 0311 AST 30 05/23/2025 0311 ALT <6 05/23/2025 0311 PROCAL 0.51 (H) 05/20/2025 2220 PROCAL 0.04 08/19/2024 1947 PROCAL 0.18 (H) 11/11/2023 2351 Lab Results Component Value Date/Time WBC 19.6 (H) 05/23/2025 0310 HGB 12.2 (L) 05/23/2025 0310 HGB 13.9 05/22/2025 0326 HCT 35.6 (L) 05/23/2025 0310 PLT 151 05/23/2025 0310 GRANULOCYTES 70.7 08/25/2021 0504 LYMPHOPCT 2.2 (L) 05/23/2025 031 LYMPHOPCT 0 (L) 05/20/2025 2220 MONOPCT 5.3 05/23/2025 0310 MONOPCT 0 (L) 05/20/2025 2220 LABEOS 3.6 08/25/2021 0504 BASOPCT 0.1 05/23/2025 031 NEUTROABS 17.9 (H) 05/23/2025 0310 Micro: 05/22 bc: GPC 05/20 resp cx: S pneumoniae (PCR- neg) Lines: PIV Radiography/Echo/Other: Reviewed 05/21 TTE: Interpretation Summary Show Result Comparison Left Ventricle: Left ventricle is mildly dilated. Mildly increased wall thickness. Low normal left ventricular systolic function. EF by 2D Simpsons Biplane is 50%. Global longitudinal strain is reduced with a value of -13.3%. See diagram for wall motion findings. Indeterminate diastolic function due to atrial fibrillation. Right Ventricle: Right ventricle is mildly dilated. ICD lead present in the right ventricle. Normal systolic function. Left Atrium: Left atrium size is severely increased (LA volume index >48 mL/m2).LA Vol Index is 57 ml/m2. Right Atrium: Right atrium is severely dilated. No significant valvular abnormalities. In comparison to the previous study on 11/12/2023, LVEF has improved. 05/20 CT Chest: Impression: Infiltrate in the left posterior lung base suspicious for pneumonia. Again seen are compression fractures of T6-T8. Interval development of a compression fracture of T9. 05/20 CT Head: mpression: 1. No acute intracranial findings. 2. Probable chronic ischemic and atrophic changes. Antimicrobials, Start/End Dates: Vancomycin Cefepime to Ceftriaxone Impression: 69 M admitted with change in MS, respiratoryu failure: MRSA Septic shock -resolved extubated, off pressors,, on Vancomycin already. Follow up BC +GPC still. LLL PNA + S pneumoniae too- already covered as above with Ceftriaxone. Back to baseline. +AICD, may need device extraction even if TTE unremarkable, no obvious lead vegetation- Cards following Hyponatremia- multifactorial from EtoH likely, improving VIMAL- resolved Concern for EtOH withdrawal-stable now Encephalopathy- appears resolving H/o noncompliance Overall acutely ill still but improving. Plan: Recheck BC next 1-2 days for clearance. Await device extraction per Cardiology- probably seeded. Same antibiotics for now. ICU Progress Note Name: Krystina Markham : 1955(69 y.o.) Date: 05/23/25 Team: MICU Attending: Dr. Iyer Subjective: Hospital Summary: Patient is a 69 y.o M w/ PMHx significant for COPD, HFrEF (last EF 21%, 11/2023) s/p ICD, A-fib on eliquis, Hx of DVT and PE, Hx of ETOH abuse who initially presented to the [facility] on 04/19/25 from home after patient was found by her ex at home minimally responsive and was having difficulty breathing. Patient was brought to [facility] via EMS and was given solumedrol/duoneb en route. Per EMS, patient seemed altered and had posturing w/ his L arm. EMS were unable to to get his L arm to relax as he was clenching his fingers w/ some tremors. Initial eval at [facility]; patient was febrile, hypertensive, tachycardic. CMP showed hyponatremia hypomagnesemia, HAGMA and an VIMAL. ProBNP 7,000 and initial troponin of 61. EKG w/o ischemic changes. Initial lactic acid 3.3, pro calcitonin 0.51. CBC showed leukocytosis. CT chest abdomen pelvis demonstrated infiltrate in the left posterior lung base suspicious for PNA. CTH w/o acute intracranial findings. CXR demonstrated pulmonary vascular congestion. Patient was initiated on cefepime and vancomycin at [facility]. Patient was intubated at [facility] and was transferred to [facility] MICU for further evaluation and management. Patient was extubated on 05/22, currently stable on room air. ID following, currently on ceftriaxone and vanc. Cardiology following w/ plans for device extraction and MERLIN next week. Interval Events: No acute events overnight Scheduled Meds:Scheduled Meds[1] Continuous Infusions:Continuous Meds[2] Objective: Last Vitals: BP MAP 136/87 (05/23/25 1300) 102 (05/23/25 1300) Arterial BP MAP Temp 36.4 C (97.6 F) (05/23/25 0800) Pulse 74 (05/23/25 1300) Resp 23 (05/23/25 1300) SpO2 98 % (05/23/25 1300) Weight 170 lb 10.2 oz (77.4 kg) (05/22/25 0500) BMI Body mass index is 25.95 kg/m . I/O: 05/22 0700 - 05/23 0659 In: 1938 [P.O.:1300; I.V.:588] Out: 500 [Urine:500] Ventilator: Oxygen Delivery: O2 Flow Rate (L/min): 2 L/min Invasive Lines / Tubes / Drains: CVC Triple Lumen 05/21/25 Right Internal jugular (Active) Number of days: 0 Peripheral IV 05/20/25 Right Antecubital (Active) Number of days: 0 Peripheral IV 05/20/25 Anterior;Left;Upper Arm (Active) Number of days: 0 NG/OG Tube Center mouth (Active) Number of days: 0 Urethral Catheter Straight-tip (Active) Number of days: 0 ETT 7.5 mm (Active) Number of days: 0 Central Line Indication: NA - patient does not have a central line Polanco Indications: NA - patient does not have a Polanco catheter Restraints: Restraints Non-Violent Or Non-Self Destructive May 20, 2025 11:38 Pm Edt NA - patient is not restrained. Wounds: Constitutional: General Appearance [x]WDWN []Obese []Cachectic []Thin []Ill Eyes: Inspection of Pupils/Irises Pupils round and react: [x]Yes []No Sclera: []Icteric []Non-Icteric Inspection of Conjunctiva/Lids Conjunctiva: []Injected []Non-Injected Lids: []Intact []Lesion Present ENT/Mouth: External Inspection of ears/nose [x] Normal [] Scar/Lesion/Mass Inspection of teeth/lips/gums Dentition: [][place] Teeth []Dentures Lips/Gums: [x]Intact []Lesion Present Mucosa: [x][place] []Moist []Dry Neck: External Appearance Overall Appearance: [x]Normal []Lesion/Mass/Crepitus Present Trachea midline: [x]Yes []No Thyroid [x]Normal []Enlarged []Tender []Mass []Absent Respiratory: Respiratory effort []Labored [x]Non-Labored [] Mechanically-Ventilated Auscultation []Clear []Crackles [x]Wheezes [][place] Cardiovascular: Auscultation Rate: [x]Regular []Irregular []Tachycardia []Bradycardia Rhythm: []Regular [x]Irregular Murmur: []Present []Absent Extremities Peripheral Edema: []Present []Absent Varicosities: []Present []Absent Gastrointestinal: Abdomen Palpation: [x]Soft []Firm []Tender []Non-Tender []Distended [x]Non-distended Mass: []Present []Absent Bowel Sounds: []Present []Absent Hernia: []Present []Absent Liver/Spleen: []Hepatosplenomegaly []Organomegaly Absent Musculoskeletal: Inspection of Digits and Nails Cyanosis: []Present [x]Absent Clubbing: []Present [x]Absent Ischemia: []Present []Absent Infection: []Present []Absent Extremities MOCTEZUMA Equally: Except ([]RUE []RLE []LUE []LLE) Strength/Tone: Intact and Normal ([]RUE []RLE []LUE []LLE) Skin: Inspection [x]Normal []Rash []Lesion []Ulcer Palpation [x]Warm []Cool [x]Dry []Clammy []Nodules []Induration []Skin-tightening Cap-Refill: [] <3 sec [] >3 seconds (delayed) Neurologic: [] Sensation grossly intact Psych: Mental Status Alert: [x]Yes [] No Oriented: []x0 [x]X1 []X2 []x3 Mood/Affect [x]Normal []Flat []Agitated []Depressed []Anxious []Calm []Sedated []NAD [facility] Labs within last 24 hours- BMP: Recent Labs 05/22/25 0358 05/22/25 0834 05/22/25 1354 05/23/25 0311 NA 127* 130* 130* 132* K 5.2* 3.7 3.4* 3.8 CL 95* 95* 96* 100 CO2 19* 22* 25 24 BUN 24* 26* 24* 34* CREATININE 1.20 1.20 1.06 1.03 CALCIUM 9.0 9.7 9.2 9.0 MG 2.3 2.0 -- 1.8 PHOS 4.4 3.8 -- 1.7* LFTs: Recent Labs 05/20/25221905/20/25 2347 05/23/25 0311 AST 27 -- 30 ALT 7 -- <6 PROT 7.7 -- 6.0* ALBUMIN 3.7 -- 2.7* BILITOT 1.2* -- 0.4 BILIRUBINU -- Negative -- ALKPHOS 142 -- 90 Glucose: Recent Labs 05/21/25 1211 05/21/25 1614 05/21/25 2007 05/21/25 2352 05/22/25 0358 05/22/25 0834 05/22/25 1354 05/23/25 0311 GLUCOSE 127* 121* 134* 145* 133* 151* 135* 118* Procal: Recent Labs 05/20/252219 PROCAL 0.51* CBC: Recent Labs 05/21/2530905/21/2532205/22/25 0326 05/22/25 0358 05/23/25 0310 WBC 30.9* -- -- 23.3* 19.6* HGB 14.9 < > 13.9 13.4 12.2* HCT 42.0 -- -- 38.7* 35.6* PLT 161 -- -- 139* 151 MCV 85.9 -- -- 88.0 89.2 RDW 12.4 -- -- 12.8 12.9 < > = values in this interval not displayed. ABGs: Recent Labs 05/20/25221905/21/2532205/22/25325 PHART 7.514* 7.367 7.445 UUL4TXK 32.7* 42.6 36.5 PO2ART 431.2* 118.2* 107.9* OQM6LES 25.7 23.9 24.5 [id number] Non-Invasive Ventilator Non-Invasive Ventilator Ventilator Ventilator Lactic Acid: Recent Labs 05/20/25 2220 05/21/25 0310 LACTATE 3.3* 1.2 INR: No results for input(s): "INR" in the last 72 hours. Cardiac Injury Profile: Recent Labs 05/21/25 0148 CKTOTAL 86 Labs in Last 3 months: Lab Results Component Value Date TSH 0.57 05/20/2025 VITD25 17 (L) 07/17/2022 INR 1.2 (H) 09/12/2024 Microbiology- Urine Cx: No results found for: URINECX Blood Cx: Lab Results Component Value Date BLOODCX Gram-positive cocci (AA) 05/22/2025 BLOODCX Gram-positive cocci (AA) 05/22/2025 Sputum Cx: Lab Results Component Value Date RESPCULT Rare respiratory elsa present. 05/21/2025 RESPCULT Few Streptococcus pneumoniae (A) 05/21/2025 Gram Stain: Lab Results Component Value Date LABGRAM Moderate Ciliated epithelial cells (A) 05/21/2025 LABGRAM No polymorphonuclear leukocytes seen (A) 05/21/2025 LABGRAM Many Gram positive cocci in pairs and chains (A) 05/21/2025 PNA PCR: Lab Results Component Value Date HUMANMETAPNE Not Detected 05/21/2025 COVID19: No results found for: COVID19 Legionella Ag: Lab Results Component Value Date LEGIONELLAPN Not Detected 05/21/2025 Strep Ag: No results for input(s): "STREPPNEUMO" in the last 72 hours. Imaging- CXR 05/20. Findings compatible with vascular congestion. 2.. Findings which may represent left basilar atelectasis, mild infiltrate(s) or postinflammatory change and small left pleural effusion, new in the interval CT head wo IV contrast 05/20. No acute intracranial findings. 2. Probable chronic ischemic and atrophic changes. CT C/A/P wo contrast 05/20 - Infiltrate in the left posterior lung base suspicious for pneumonia. CXR 05/23 - Hyperinflation with accentuated reticular opacities. No pneumothorax. Atelectasis and pleural fluid greater on the left. Right costophrenic angle is sharp. TTE 05/21 - Left Ventricle: Left ventricle is mildly dilated. Mildly increased wall thickness. Low normal left ventricular systolic function. EF by 2D Simpsons Biplane is 50%. Indeterminate diastolic function due to atrial fibrillation. Right Ventricle: Right ventricle is mildly dilated. ICD lead present in the right ventricle. Normal systolic function. Left Atrium: Left atrium size is severely increased (LA volume index >48 mL/m2). Right Atrium: Right atrium is severely dilated. No significant valvular abnormalities. In comparison to the previous study on 11/12/2023, LVEF has improved. Assessment and Plan: Principal Problem: Acute metabolic encephalopathy Assessment/ Plan: Neuro Acute encephalopathy, unknown baseline Alcohol use disorder Seizure like activity on initial presentation - EEG showed findings supportive of a moderate diffuse encephalopathy non-specific as to etiology. D/C'd 05/22. - Folic acid 1mg daily - Sertraline 100mg daily - Thiamine 100mg daily Pulmonology Acute respiratory failure 2/2 LLL pneumonia Chronic respiratory failure on home O2 2/2 COPD - Extubated 05/22, currently stable on room air - Dulera BID - Singulair 10mg nightly - prednisone 40mg daily - Spiriva daily Cardiovascular Septic shock 2/2 staph bacteremia and LLL pneumonia, resolved Hx of HFrEF 21%, biventricular failure has 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 Hx of Afib on eliquis Hx of DVT and PE - Currently stable off pressors - Cardiology consulted, appreciate recs - TTE 05/21 showed no significant valvular abnormalities - Staph bacteremia and 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 in place. Plan for device extraction regardless of visible vegetations on the leads given the organism. We will arrange an extraction procedure and a MERLIN during the time of the extraction next week - Continue crestor 40mg daily - Holding metoprolol succinate 100mg daily - Holding losartan 25mg daily - Holding farxiga 5mg daily - Continue eliquis 5mg BID GI/FEN Hyponatremia, improving Hypokalemia, resolved Hypophosphatemia - continue pantoprazole 40mg daily - Regular diet - Replete electrolytes as needed VIMAL, resolved - Cr improving Heme/Onc Leukocytosis, improving Normocytic anemia - Hgb 12.2 today, continue to monitor w/ daily cbc ID Staph bacteremia and LLL pneumonia - ID following - Continue Vancomycin Day 3 - Continue ceftriaxone for 5 days total - streptococcus pneumonia on urine antigen and 05/21 resp cx - 05/22 blood Cx positive for gram positive cocci GI Prophylaxis: Pantoprazole PO DVT Prophylaxis: eliquis Disposition: Transfer to [facility] [1] apixaban, 5 mg, Per NG/OG Tube, BID cefTRIAXone, 1,000 mg, IntraVENous, q24h chlorhexidine, , Topical, Daily [Held by provider] dapagliflozin, 5 mg, Oral, Daily folic acid, 1 mg, Oral, Daily [Held by provider] losartan, 25 mg, Oral, Daily [Held by provider] metoprolol succinate XL, 100 mg, Oral, Daily mometasone-formoterol, 2 puff, Inhalation, BID montelukast, 10 mg, Oral, Nightly mupirocin, 1 Application, Nasal, BID pantoprazole (ProtoNix) 40 mg in sodium chloride (PF) 0.9 % 10 mL injection, 40 mg, IntraVENous, Daily predniSONE, 40 mg, Oral, Daily rosuvastatin, 40 mg, Oral, Daily sertraline, 100 mg, Per NG/OG Tube, Daily sodium chloride 0.9%, 5-40 mL, IntraCATHeter, q8h [Held by provider] spironolactone, 25 mg, Oral, Daily thiamine, 100 mg, Oral, Daily tiotropium, 2 puff, Inhalation, Daily [Held by provider] torsemide, 40 mg, Oral, BID vancomycin, 1,500 mg, IntraVENous, q24h [2] Cosigned by eLelee Iyer DO at 05/23/2025 6:25 PM EDT Associated attestation - Leelee Iyer DO - 05/23/2025 6:25 PM EDT I have personally performed a [id number] diagnostic evaluation on this patient on date of service 05/23/25. History, labs, imaging studies, and electronic medical record have been reviewed by me. This note documented by the [x]greenhouse technician []ISABELLE reflects my history, exam, and medical decision making. I have reviewed and agree with the care plan. Changes were made in the orders as necessary. ROS documentation was reviewed and negative unless otherwise stated in HPI. 69 y/o M with HFrEF 21% with ICD, afib on eliquis, DVT/PE, COPD, ETOH use who presented after being found unresponsive, admitted with septic shock. Extubated yesterday. Sitting in chair at bedside. Denied any complaints this morning. Assessment: Septic shock, resolved LLL PNA MRSA bacteremia HFrEF, afib on Eliquis COPD Hyponatremia, VIMAL ETOH use Plan: -Satting well on nasal cannula. Continue with Dulera and spiriva in place of home Trelegy. -Leukocytosis, elevated procal. Chest CT with LLL infiltrate. Sputum positive for strep pneumo. Blood cultures positive for MRSA. TTE reviewed. ID following, remains on vanc and rocephin. Repeat blood cultures again positive for GPC. Cardiology consulted, planned for device extraction and MERLIN next week. Wound care consulted. -Continue to wean Solu-Cortef -Stable for transfer to telemetry [facility] Respiratory Care Department Progress Note As part of the Respiratory Assessment Program (RAP), the following Respiratory Therapist evaluation has been completed, including a chart review and clinical/physical assessment. Respiratory Therapist RAP Evaluation Guideline Points 0 1 2 3 4 Points Strongly Consider History Factor No Pulmonary conditions Stable Pulmonary condition(s) Surgery or Intervention that may impact Pulmonary system (at risk) Surgery or Intervention that is impacting Pulmonary system Active Exacerbation of Pulmonary Condition 1 Respiratory Pattern Regular, RR= 12-18 NARAYANAN or Increased RR= 19-24 Irregular, or RR= 25-30 SOB, talk in short sentences, or RR= 31-35 Severe SOB, accessory muscle use, one word answers, or RR>35 0 Aerosol Med(s), High Flow O2 Breath Sounds Clear Diminished in 1 lobe Diminished in <= 2 lobes Adventitious breath sounds Coarse crackles, Wheezes, or Diminished in >2 lobes 1 Aerosol Med(s), Bronchial Hygiene, Hyperinflation Cough & Sputum Strong cough, no secretion retention or production Weak cough, no secretion retention or production Weak cough, w/ production (less often than Q2hr), or secretion retention No cough, w/ secretion retention or production (less often than Q2hr) Significant secretion production (more often than Q2hr) or mucus plug 0 Aerosol Med(s), Bronchial Hygiene, Hyperinflation Level of Activity Ambulatory Ambulatory with Assist Up in chair or edge of bed (dangle) Non-ambulatory, bedridden with active ROM Completely paralyzed or without active ROM 0 Triage 5 0-2 Triage 4 3-5 Triage 3 6-10 Triage 2 11-14 Triage 1 >=15 Total 2 Triage Score = 5 TRIAGE SCORING - SUGGESTED FREQUENCIES Aerosol Therapy Bronchial Hygiene Hyperinflation Triage Score Q4h & PRN 1 Q4hWA (QID) & PRN 2 TID & PRN 3 BID & PRN 4 PRN 5 Therapy(s) Indicated Yes/No Aerosol Medication n Hyperinflation Bronchial Hygiene High Flow Oxygen Flow Rates PEF (L/Sec) IVC FVC FEV1 FEV1/FVC Patient instructed and returned demonstration on use of MDI (with spacer, as appropriate) None RT to enter/modify frequency of treatment order in EMR/EHR to match this RAP evaluation. Based on this RAP evaluation the following therapy is being initiated: Duoneb At the following frequency: BidPrn Comments: Thank you for involving Respiratory in the care of this patient, Pt extubated per order. Pharmacy to Dose Vancomycin - Progress Note Lab Results Component Value Date CREATININE 1.20 05/22/2025 BUN 24 (H) 05/22/2025 WBC 23.3 (H) 05/22/2025 VANCOTROUGH 29.5 05/22/2025 Doses, serum creatinine, and vancomycin levels interfaced automatically to [employer] - [employer] Backoffice and data has been analyzed and interpreted. Infectious Diagnosis: Pneumonia (CAP) Est CrCl: 63.6 mL/min (Cockcroft-Gault) Assessment: Current regimen vancomycin 1500 mg every 24 hours (19.4 mg/kg) Predicted AUC = 585 mg/L*hr (goal 400-600 mg/L*hr) PAUC = >95% (probability that AUC is >400 mg/L*hr) Pconc = 11% (probability that Ctrough is above 20 mcg/mL (toxicity)) Plan: Is the current dose therapeutic? [x] Yes - obtain next level on 05/25 AM (needs ordered) unless predicted AUC is sub-/supra-therapeutic or change in serum creatinine. Trend serum creatinine. Trend AUC using Bayesian Modeling. DATE: 05/22/25 TIME: 7:09 AM Paola Nick RPh Clinical Pharmacist Available via Secure Chat ICU Progress Note Name: Krystina Markham : 1955(69 y.o.) Date: 05/22/25 Team: MICU Attending: Subjective: Hospital Summary: Patient is a 69 y.o M w/ PMHx significant for COPD, HFrEF (last EF 21%, 11/2023) s/p ICD, A-fib on eliquis for AC, Hx of DVT and PE, Hx of ETOH abuse who initially presented to the [facility] on 04/19/25 from home after patient was found by her ex at home minimally responsive and was having difficulty breathing. Patient was brought to [facility] via EMS and was given solumedrol/duoneb en route. Per EMS, patient seemed altered and had posturing w/ his L arm. EMS were unable to to get his L arm to relax as he was clenching his fingers w/ some tremors. Initial eval at [facility]; vitals; Temp 102.2, HR 70s, SBPs 130s now systolics in the 90s-110s. Was on NIV and was intubated at [facility]. ABG w/ pH of 7.514, pCO2 32 HCO3 25. CMP w/ Na of 121 (132 several months ago), Scr 1.48 (baseline 0.8), AG 18 w/ HCO3 25, Mag 1.4, ProBNP 7,000 and initial troponin of 61. EKG w/o ischemic changes. Initial lactic acid 3.3, pro calcitonin 0.51. CBC w/ WBC of 12.7, normal platelets. CT chest abdomen pelvis demonstrated infiltrate in the left posterior lung base suspicious for PNA. CTH w/o acute intracranial findings. CXR demonstrated pulmonary vascular congestion. Patient was initiated on cefepime and vancomycin, ordered 1L NS at [facility]. Patient was intubated at [facility] and was transferred to [facility] MICU for further evaluation and management. 05/21/2025 Vent settings:VC, Tv:400, RR:16, FiO2;40, PEEP:8 Labs ABG: pH:7.367, pCO2:42.6, BICARB:25 Hyponatremia:122, hypokalemia:2.2, iCa:3.80, cr:1.45, lactic acid:1.2 Specific gravity: 1.009, urine osm; 244, serum:260 WBC:20.9 Chest xray: unchanged 05/22/2025 No overnight events Chest xray; pending Echo; severe dilation of R. Atrium, Biplane is 50%. Global longitudinal strain is reduced with a value of -13.3%. See diagram for wall motion findings. Indeterminate diastolic function due to atrial fibrillation. Labs: Na;127, K:5.2, iCA:4.00, cr:1.20 Possible extubation Interval Events: Scheduled Meds:Scheduled Meds[1] Continuous Infusions:Continuous Meds[2] Objective: Last Vitals: BP MAP 130/78 (05/22/25 0600) 93 (05/22/25 06) Arterial BP MAP Temp 36.1 C (96.9 F) (05/22/25 0400) Pulse 60 (05/22/25627) Resp 17 (05/22/25 06) SpO2 96 % (05/22/25 06) Weight 77.4 kg (170 lb 10.2 oz) (05/22/25 0500) BMI Body mass index is 25.95 kg/m . I/O: 05/21 07 - 05/22 0659 In: 2485 [I.V.:2385] Out: 2400 [Urine:2400] Ventilator: Resp Rate (Set): 18 Vt (Set, mL): 470 mL FiO2 (%): 40 % PEEP/CPAP (cm H2O): 8 cm H20 Inspiratory Time (sec): 0.9 sec Oxygen Delivery: Invasive Lines / Tubes / Drains: CVC Triple Lumen 05/21/25 Right Internal jugular (Active) Number of days: 0 Peripheral IV 05/20/25 Right Antecubital (Active) Number of days: 0 Peripheral IV 05/20/25 Anterior;Left;Upper Arm (Active) Number of days: 0 NG/OG Tube Center mouth (Active) Number of days: 0 Urethral Catheter Straight-tip (Active) Number of days: 0 ETT 7.5 mm (Active) Number of days: 0 Central Line Indication: Vesicant infusions/medications at high risk of causing extravasation Polanco Indications: Hourly I&Os (Critical Care ONLY) Restraints: Restraints Non-Violent Or Non-Self Destructive May 20, 2025 11:38 Pm Edt NA - patient is not restrained. Wounds: Constitutional: General Appearance [x]WDWN []Obese []Cachectic []Thin []Ill Eyes: Inspection of Pupils/Irises Pupils round and react: [x]Yes []No Sclera: []Icteric []Non-Icteric Inspection of Conjunctiva/Lids Conjunctiva: []Injected []Non-Injected Lids: []Intact []Lesion Present ENT/Mouth: External Inspection of ears/nose [x] Normal [] Scar/Lesion/Mass Inspection of teeth/lips/gums Dentition: [][place] Teeth []Dentures Lips/Gums: []Intact []Lesion Present Mucosa: [][place] []Moist []Dry Neck: External Appearance Overall Appearance: []Normal []Lesion/Mass/Crepitus Present Trachea midline: []Yes [x]No Thyroid []Normal []Enlarged []Tender []Mass []Absent Respiratory: Respiratory effort []Labored []Non-Labored [x] Mechanically-Ventilated Auscultation []Clear [x]Crackles []Wheezes []Rhonchi Cardiovascular: Auscultation Rate: [x]Regular []Irregular []Tachycardia []Bradycardia Rhythm: [x]Regular []Irregular Murmur: []Present []Absent Extremities Peripheral Edema: [x]Present []Absent Varicosities: []Present []Absent Gastrointestinal: Abdomen Palpation: [x]Soft []Firm []Tender []Non-Tender []Distended [x]Non-distended Mass: []Present []Absent Bowel Sounds: []Present []Absent Hernia: []Present []Absent Liver/Spleen: []Hepatosplenomegaly []Organomegaly Absent Musculoskeletal: Inspection of Digits and Nails Cyanosis: []Present [x]Absent Clubbing: []Present [x]Absent Ischemia: []Present []Absent Infection: []Present []Absent Extremities MOCTEZUMA Equally: Except ([]RUE []RLE []LUE []LLE) Strength/Tone: Intact and Normal ([]RUE []RLE []LUE []LLE) Skin: Inspection [x]Normal []Rash []Lesion []Ulcer Palpation []Warm []Cool []Dry []Clammy []Nodules []Induration []Skin-tightening Cap-Refill: [] <3 sec [] >3 seconds (delayed) Neurologic: [] Sensation grossly intact Psych: Mental Status Alert: [x]Yes [] No Oriented: []x0 []X1 []X2 []x3 Mood/Affect [x]Normal []Flat []Agitated []Depressed []Anxious []Calm []Sedated []NAD Select Labs within last 24 hours- BMP: Recent Labs 05/21/25200605/21/25 2352 05/22/25 0358 NA 128* 129* 127* K 3.8 3.8 5.2* CL 92* 93* 95* CO2 24 24 19* BUN 24* 25* 24* CREATININE 1.25 1.18 1.20 CALCIUM 9.4 9.3 9.0 MG 2.1 2.1 2.3 PHOS 3.8 3.9 4.4 LFTs: Recent Labs 05/20/25 2220 05/20/25 2347 AST 27 -- ALT 7 -- PROT 7.7 -- ALBUMIN 3.7 -- BILITOT 1.2* -- BILIRUBINU -- Negative ALKPHOS 142 -- Glucose: Recent Labs 05/21/25 0148 05/21/25 0310 05/21/25 0828 05/21/25 1211 05/21/25 1614 05/21/25 2007 05/21/25 2352 05/22/25 0358 GLUCOSE 118* 136* 145* 127* 121* 134* 145* 133* Procal: Recent Labs 05/20/252219 PROCAL 0.51* CBC: Recent Labs 05/20/25 22205/21/25 0310 05/21/25 0323 05/22/25 0326 05/22/25 0358 WBC 12.7* 30.9* -- -- 23.3* HGB 17.0 16.4 15.7 14.9 15.5 13.9 13.4 HCT 43.6 42.0 -- -- 38.7* PLT 171 161 -- -- 139* MCV 85.0 85.9 -- -- 88.0 RDW 11.9 12.4 -- -- 12.8 ABGs: Recent Labs 05/20/25221905/21/2532205/22/25 0326 PHART 7.514* 7.367 7.445 PEX1WIA 32.7* 42.6 36.5 PO2ART 431.2* 118.2* 107.9* [id number] 25.7 23.9 24.5 [id number] Non-Invasive Ventilator Non-Invasive Ventilator Ventilator Ventilator Lactic Acid: Recent Labs 05/20/25221905/21/25 0310 LACTATE 3.3* 1.2 INR: No results for input(s): "INR" in the last 72 hours. Cardiac Injury Profile: Recent Labs 05/21/25 0148 CKTOTAL 86 Labs in Last 3 months: Lab Results Component Value Date TSH 0.57 05/20/2025 VITD25 17 (L) 07/17/2022 INR 1.2 (H) 09/12/2024 Microbiology- Urine Cx: No results found for: URINECX Blood Cx: Lab Results Component Value Date BLOODCX Gram-positive cocci (AA) 05/20/2025 BLOODCX Gram-positive cocci (AA) 05/20/2025 Sputum Cx: Lab Results Component Value Date RESPCULT Culture in progress 05/21/2025 Gram Stain: Lab Results Component Value Date LABGRAM Moderate Ciliated epithelial cells (A) 05/21/2025 LABGRAM No polymorphonuclear leukocytes seen (A) 05/21/2025 LABGRAM Many Gram positive cocci in pairs and chains (A) 05/21/2025 PNA PCR: Lab Results Component Value Date HUMANMETAPNE Not Detected 05/21/2025 COVID19: No results found for: COVID19 Legionella Ag: Lab Results Component Value Date LEGIONELLAPN Not Detected 05/21/2025 Strep Ag: No results for input(s): "STREPPNEUMO" in the last 72 hours. 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, Afib on eliquis Alcohol use disorder Seizure like activity per ER note VIMAL Hypokalemia hypophsphatemia Plan: Neuro - pain medication has need it, acetaminophen 1g PRN Cardiovascular - monitor V/S - Levophed: off - follow up with ECHO - follow up with cardiology reccomendations Pulmonology - extubated today -follow up with speech frank GI - continue pantoprazole 40mg IV - start diet Renal - monitor VIMAL - replenish electrolytes has need it - continue fluids - follow up with bmp q6 - goal correction for hyponatremia - 130 Heme/Onc - wbc; 23 trend - DVT prophylaxis Eliquis 5mg I/D -vancomycin- discontinued -Discontinue cefepime 2g -Start rocephin 2g - doxycycline; dc - streptococcus pneumonia on urine -follow up with Blood culture GI Prophylaxis: Pantoprazole IV DVT Prophylaxis: eliquis Disposition: possible transfer [1] apixaban, 5 mg, Per NG/OG Tube, BID calcium gluconate, 2,000 mg, IntraVENous, Once cefTRIAXone, 1,000 mg, IntraVENous, q24h chlorhexidine, , Topical, Daily [Held by provider] dapagliflozin, 5 mg, Oral, Daily folic acid 1 mg in dextrose 5 % 50 mL IVPB, 1 mg, IntraVENous, Daily Hydrocortisone Sod Suc (PF), 100 mg, IntraVENous, q12h ipratropium-albuterol, 3 mL, Nebulization, TID [Held by provider] losartan, 25 mg, Oral, Daily [Held by provider] metoprolol succinate XL, 100 mg, Oral, Daily montelukast, 10 mg, Oral, Nightly mupirocin, 1 Application, Nasal, BID pantoprazole (ProtoNix) 40 mg in sodium chloride (PF) 0.9 % 10 mL injection, 40 mg, IntraVENous, Daily rosuvastatin, 40 mg, Oral, Daily sertraline, 100 mg, Per NG/OG Tube, Daily sodium chloride 0.9%, 5-40 mL, IntraCATHeter, q8h [Held by provider] spironolactone, 25 mg, Oral, Daily thiamine, 100 mg, IntraVENous, Daily [Held by provider] torsemide, 40 mg, Oral, BID vancomycin, 1,500 mg, IntraVENous, q24h [2] dexmedeTOMIDine, 0.1-1.5 mcg/kg/hr, Last Rate: Stopped (05/22/25 0500) norepinephrine, 1-100 mcg/min, Last Rate: Stopped (05/21/25 0905) propofol, 5-50 mcg/kg/min, Last Rate: Stopped (05/21/25 1552) Cosigned by Leelee Iyer DO at 05/22/2025 3:20 PM EDT Associated attestation - Leelee Iyer DO - 05/22/2025 3:20 PM EDT I have personally performed a rors-fh-ohis diagnostic evaluation on this patient on date of service 05/22/25. History, labs, imaging studies, and electronic medical record have been reviewed by me. This note documented by the [x]greenhouse technician []ISABELLE reflects my history, exam, and medical decision making. I have reviewed and agree with the care plan. Changes were made in the orders as necessary. ROS documentation was reviewed and negative unless otherwise stated in HPI. 69 y/o M with HFrEF 21% with ICD, afib on eliquis, DVT/PE, COPD, ETOH use who presented after being found unresponsive, admitted with septic shock. Extubated this morning to ME. Denied any complaints post extubation. Assessment: Septic shock, resolved LLL PNA MRSA bacteremia HFrEF, afib on Eliquis COPD Hyponatremia, VIMAL ETOH use Plan: -EEG without seizures, d/c'd -Extubated to [place] this morning. Dulera and spiriva in place of home Trelegy. -Leukocytosis, elevated procal. Chest CT with LLL infiltrate. Blood cultures positive for MRSA. TTE reviewed. ID following, remains on vanc, deescalated to rocephin. Repeat blood cultures pending. Cardiology consulted, planned for device extraction and MERLIN next week. Wound care consulted. -Stable off of pressors, wean solucortef [facility] Respiratory Care Department Progress Note Spontaneous Awakening Trial Wean Screen SpO2>/=88%: Yes (05/22/25522) FiO2</=50%: Yes (05/22/25522) PEEP </=8cmH2O: Yes (05/22/25522) HR <140 BPM: Yes (05/22/25522) RR </= 35 breaths/min: Yes (05/22/25522) MAP >/= 65mmHg: Yes (05/22/25522) Arterial pH >7.30: Yes (05/22/25522) Safety Screen Spontaneous Breathing Trial (SBT - RT) : Proceed with SBT - No exclusion criteria met (05/22/25522) Spontaneous Breathing Trial Weaning Start Time: 527 (05/22/25627) Weaning Tidal Volume: 333 mL (05/22/25627) Weaning Respiratory Rate: 17 (05/22/25627) Spontaneous Minute Volume (MV): 7.58 (05/22/25627) Total RSBI: 51 (05/22/25627) Weaning Tolerance: Good (05/22/25627) Weaning Stop Time: 627 (05/22/25627) Weaning Duration (min): 60 (05/22/25627) Spontaneous Breathing Trial (SBT - RT) Outcome: SBT Passed (05/22/25627) Vent Settings Vent Mode: Spontaneous (05/22/25599) Mandatory Type: VC+ (05/22/25 0500) Resp Rate (Set): 18 (05/21/25 1550) Vt (Set, mL): 470 mL (05/21/25 1550) FiO2 (%): 40 % (05/22/25 0600) PEEP/CPAP (cm H2O): 8 cm H20 (05/21/25 1550) Inspiratory Time (sec): 0.9 sec (05/21/25 1550) Vitals MAP (mmHg): 93 (05/22/25 06) Heart Rate: 60 (05/22/25 06) Resp: 20 (05/22/25 06) SpO2: 97 % (05/22/25599) Suctioning/Secretions Secretion Amount: Scant (05/21/251947) Secretion Color: White (05/21/251947) Secretion Consistency: Thick (05/21/251947) ABG results Recent Labs 05/20/25 2220 05/21/25 0323 05/22/25 0326 PHART 7.514* 7.367 7.445 [id number] 32.7* 42.6 36.5 PO2ART 431.2* 118.2* 107.9* [id number] 25.7 23.9 24.5 [id number] Non-Invasive Ventilator Non-Invasive Ventilator Ventilator Ventilator Does this patient meet criteria for termination of mechanical ventilation Yes- Notified physician below Name of physician notified via secure chat or in person : chantel (NA if patient did not meet criteria) Comments: Thank you for involving Respiratory in the care of this patient, Images from the original note were not included. Pharmacy Managed Vancomycin Dosing Service Consult Note Consult Date: 05/21/25 Patient Name: Krystina Markham Allergies: Patient has no known allergies. Age: 69 y.o. Sex: male Estimated body mass index is 26.46 kg/m as calculated from the following: Height as of this encounter: 1.727 m (5' 8"). Weight as of this encounter: 78.9 kg (174 lb). DW: 79 kg Lab Results Component Value Date CREATININE 1.35 (H) 05/21/2025 CREATININE 1.39 (H) 05/21/2025 BUN 24 (H) 05/21/2025 BUN 24 (H) 05/21/2025 WBC 30.9 (HH) 05/21/2025 WBC 12.7 (H) 05/20/2025 Calculated CrCl: 58 mL/min (Cockcroft-Gault) Consulted By: Leelee Iyer DO Infectious Diagnosis: CAP (AUC Goal 400-600 mg/L*hr) Random Vancomycin Level Due: 05/22 Antimicrobials: Patient recently received an antibiotic (last 12 hours) Date/Time Action Medication Dose Rate 05/21/25 1210 New Bag cefTRIAXone (Rocephin) 1,000 mg in sodium chloride 0.9 % 50 mL IVPB Mini-Bag Plus 1,000 mg 100 mL/hr 05/21/25 0841 Given mupirocin (Bactroban) 2 % ointment 1 Application 1 Application 05/21/25 0711 New Bag cefepime (Maxipime) 2,000 mg in sodium chloride 0.9 % 50 mL IVPB Mini-Bag Plus 2,000 mg 100 mL/hr 05/21/25 0546 New Bag doxycycline (Vibramycin) 100 mg in sodium chloride 0.9 % 100 mL IVPB 100 mg 100 mL/hr Assessment/Plan: Doses, serum creatinine, and vancomycin levels interfaced automatically to [employer] - [employer]ur[employer] Backoffice and data has been analyzed and interpreted. Patient was given loading dose of vancomycin 1,750 mg x1 at 0100 on 05/21. Now start Vancomycin 1500 mg every 24 hours based on patient age, weight, renal function, and infectious diagnosis (19 mg/kg). Predicted AUC = 571 mg/L*hr (goal 400-600 mg/L*hr) PAUC = 91% (probability that AUC is >400 mg/L*hr) Pconc = 22% (probability that Ctrough is above 20 mcg/mL (toxicity)) Will assess random level on 05/22 and adjust as appropriate. Trend serum creatinine. Orders placed. Thank you for this consult. Please secure text or call with questions. DATE: 05/21/25 TIME: 3:03 PM Dominga Carolina PharmD Clinical Pharmacist Available via Secure Chat ICU Progress Note Name: Krystina Markham : 1955(69 y.o.) Date: 05/21/25 Team: MICU Attending: Subjective: Hospital Summary: Patient is a 69 y.o M w/ PMHx significant for COPD, HFrEF (last EF 21%, 11/2023) s/p ICD, A-fib on eliquis for AC, Hx of DVT and PE, Hx of ETOH abuse who initially presented to the [facility] on 04/19/25 from home after patient was found by her ex at home minimally responsive and was having difficulty breathing. Patient was brought to [facility] via EMS and was given solumedrol/duoneb en route. Per EMS, patient seemed altered and had posturing w/ his L arm. EMS were unable to to get his L arm to relax as he was clenching his fingers w/ some tremors. Initial eval at [facility]; vitals; Temp 102.2, HR 70s, SBPs 130s now systolics in the 90s-110s. Was on NIV and was intubated at [facility]. ABG w/ pH of 7.514, pCO2 32 HCO3 25. CMP w/ Na of 121 (132 several months ago), Scr 1.48 (baseline 0.8), AG 18 w/ HCO3 25, Mag 1.4, ProBNP 7,000 and initial troponin of 61. EKG w/o ischemic changes. Initial lactic acid 3.3, pro calcitonin 0.51. CBC w/ WBC of 12.7, normal platelets. CT chest abdomen pelvis demonstrated infiltrate in the left posterior lung base suspicious for PNA. CTH w/o acute intracranial findings. CXR demonstrated pulmonary vascular congestion. Patient was initiated on cefepime and vancomycin, ordered 1L NS at [facility]. Patient was intubated at [facility] and was transferred to [facility]U for further evaluation and management. 05/21/2025 Vent settings:VC, Tv:400, RR:16, FiO2;40, PEEP:8 Labs ABG: pH:7.367, pCO2:42.6, BICARB:25 Hyponatremia:122, hypokalemia:2.2, iCa:3.80, cr:1.45, lactic acid:1.2 Specific gravity: 1.009, urine osm; 244, serum:260 WBC:20.9 Chest xray: unchanged Interval Events: Scheduled Meds:Scheduled Meds[1] Continuous Infusions:Continuous Meds[2] Objective: Last Vitals: BP MAP 107/72 (05/21/25514) 83 (05/21/25521) Arterial BP MAP Temp 36.5 C (97.7 F) (05/21/25303) Pulse 60 (05/21/25514) Resp 18 (05/21/25514) SpO2 98 % (05/21/25514) Weight 75.8 kg (167 lb 1.7 oz) (05/21/25304) BMI Body mass index is 25.41 kg/m . I/O: 05/20 0700 - 05/21 659 In: 80 Out: 300 [Urine:300] Ventilator: Resp Rate (Set): 18 Vt (Set, mL): 470 mL FiO2 (%): 40 % PEEP/CPAP (cm H2O): 8 cm H20 Inspiratory Time (sec): 0.9 sec Oxygen Delivery: Invasive Lines / Tubes / Drains: CVC Triple Lumen 05/21/25 Right Internal jugular (Active) Number of days: 0 Peripheral IV 05/20/25 Right Antecubital (Active) Number of days: 0 Peripheral IV 05/20/25 Anterior;Left;Upper Arm (Active) Number of days: 0 NG/OG Tube Center mouth (Active) Number of days: 0 Urethral Catheter Straight-tip (Active) Number of days: 0 ETT 7.5 mm (Active) Number of days: 0 Central Line Indication: Vesicant infusions/medications at high risk of causing extravasation Polanco Indications: Hourly I&Os (Critical Care ONLY) Restraints: Restraints Non-Violent Or Non-Self Destructive May 20, 2025 11:38 Pm Edt NA - patient is not restrained. Wounds: Constitutional: General Appearance [x]WDWN []Obese []Cachectic []Thin []Ill Eyes: Inspection of Pupils/Irises Pupils round and react: [x]Yes []No Sclera: []Icteric []Non-Icteric Inspection of Conjunctiva/Lids Conjunctiva: []Injected []Non-Injected Lids: []Intact []Lesion Present ENT/Mouth: External Inspection of ears/nose [x] Normal [] Scar/Lesion/Mass Inspection of teeth/lips/gums Dentition: [][place] Teeth []Dentures Lips/Gums: []Intact []Lesion Present Mucosa: [][place] []Moist []Dry Neck: External Appearance Overall Appearance: []Normal []Lesion/Mass/Crepitus Present Trachea midline: []Yes [x]No Thyroid []Normal []Enlarged []Tender []Mass []Absent Respiratory: Respiratory effort []Labored []Non-Labored [x] Mechanically-Ventilated Auscultation []Clear [x]Crackles []Wheezes []Rhonchi Cardiovascular: Auscultation Rate: [x]Regular []Irregular []Tachycardia []Bradycardia Rhythm: [x]Regular []Irregular Murmur: []Present []Absent Extremities Peripheral Edema: [x]Present []Absent Varicosities: []Present []Absent Gastrointestinal: Abdomen Palpation: [x]Soft []Firm []Tender []Non-Tender []Distended [x]Non-distended Mass: []Present []Absent Bowel Sounds: []Present []Absent Hernia: []Present []Absent Liver/Spleen: []Hepatosplenomegaly []Organomegaly Absent Musculoskeletal: Inspection of Digits and Nails Cyanosis: []Present [x]Absent Clubbing: []Present [x]Absent Ischemia: []Present []Absent Infection: []Present []Absent Extremities MOCTEZUMA Equally: Except ([]RUE []RLE []LUE []LLE) Strength/Tone: Intact and Normal ([]RUE []RLE []LUE []LLE) Skin: Inspection [x]Normal []Rash []Lesion []Ulcer Palpation []Warm []Cool []Dry []Clammy []Nodules []Induration []Skin-tightening Cap-Refill: [] <3 sec [] >3 seconds (delayed) Neurologic: [] Sensation grossly intact Psych: Mental Status Alert: [x]Yes [] No Oriented: []x0 []X1 []X2 []x3 Mood/Affect [x]Normal []Flat []Agitated []Depressed []Anxious []Calm []Sedated []NAD Select Labs within last 24 hours- BMP: Recent Labs 05/20/25221905/21/2514705/21/25309 NA 121* 124* 122* K 3.6 2.5* 2.2* CL 78* 87* 85* CO2 * 25 BUN 24* CREATININE 1.48* 1.41* 1.45* CALCIUM 9.4 8.3* 8.6* MG 1.4* 1.8 -- PHOS 2.4 1.8* -- LFTs: Recent Labs 05/20/25221905/20/25 2347 AST 27 -- ALT 7 -- PROT 7.7 -- ALBUMIN 3.7 -- BILITOT 1.2* -- BILIRUBINU -- Negative ALKPHOS 142 -- Glucose: Recent Labs 05/20/25221905/21/2514705/21/25 031 GLUCOSE 140* 118* 136* Procal: Recent Labs 05/20/252219 PROCAL 0.51* CBC: Recent Labs 05/20/25221905/21/2530905/21/25 0323 WBC 12.7* 30.9* -- HGB 17.0 16.4 15.7 14.9 15.5 HCT 43.6 42.0 -- PLT 171 161 -- MCV 85.0 85.9 -- RDW 11.9 12.4 -- ABGs: Recent Labs 05/20/25221905/21/25 0323 PHART 7.514* 7.367 [id number] 32.7* 42.6 PO2ART 431.2* 118.2* [id number] 25.7 23.9 [id number] Non-Invasive Ventilator Non-Invasive Ventilator Ventilator Lactic Acid: Recent Labs 05/20/25221905/21/25309 LACTATE 3.3* 1.2 INR: No results for input(s): "INR" in the last 72 hours. Cardiac Injury Profile: Recent Labs 05/21/25 0148 CKTOTAL 86 Labs in Last 3 months: Lab Results Component Value Date TSH 0.57 05/20/2025 VITD25 17 (L) 07/17/2022 INR 1.2 (H) 09/12/2024 Microbiology- Urine Cx: No results found for: URINECX Blood Cx: Lab Results Component Value Date BLOODCX Blood culture incubation started 05/20/2025 BLOODCX Blood culture incubation started 05/20/2025 Sputum Cx: Lab Results Component Value Date RESPCULT No growth of normal respiratory elsa. 08/22/2024 RESPCULT Rare Staphylococcus aureus (A) 08/22/2024 Gram Stain: Lab Results Component Value Date LABGRAM Few Epithelial cells per low power field 08/22/2024 LABGRAM 08/22/2024 Many Polymorphonuclear leukocytes per low power field LABGRAM No organisms seen 08/22/2024 PNA PCR: Lab Results Component Value Date HUMANMETAPNE Not Detected 08/22/2024 COVID19: No results found for: COVID19 Legionella Ag: Lab Results Component Value Date LEGIONELLAPN Not Detected 08/22/2024 Strep Ag: No results for input(s): "STREPPNEUMO" in the last 72 hours. Imaging- XR chest 1 view Result Date: 05/21/2025 Impression: Atelectasis and fluid on the left. No new abnormality Report Dictated on Workstation: [employer] Electronically Signed By: Gunner Moreno MD Electronically Signed Date/Time: 05/21/2025 6:57 AM EDT ECG 12 lead Result Date: 05/21/2025 Impression: Atrial fibrillation Multiple ventricular premature complexes Left bundle branch block ST elevation secondary to IVCD Electronically Signed On 05-21-2025 05:57:07 EDT by Charlie Mcintyre XR abdomen 1 view Result Date: 05/21/2025 Impression: Nasogastric tube in adequate position. No acute abnormality Report Dictated on Workstation: [employer] Electronically Signed By: Gunner Moreno MD Electronically Signed Date/Time: 05/21/2025 3:43 AM EDT XR chest 1 view Result Date: 05/21/2025 Impression: Central venous catheter in adequate position without pneumothorax Report Dictated on Workstation: [employer] Electronically Signed By: Gunner Moreno MD Electronically Signed Date/Time: 05/21/2025 12:26 AM EDT XR chest 1 view Result Date: 05/21/2025 Impression: Endotracheal tube and nasogastric tube in adequate position. Atelectasis at the left lung base with left pleural fluid Report Dictated on Electronically Signed By: Gunner Moreno MD Electronically Signed Date/Time: 05/21/2025 12:[address] chest abdomen pelvis without contrast Result Date: 05/20/2025 Impression: Infiltrate in the left posterior lung base suspicious for pneumonia. Again seen are compression fractures of T6-T8. Interval development of a compression fracture of T9. Report Dictated on Electronically Signed By: Paul Leiva MD Electronically Signed Date/Time: 05/20/2025 11:[address] head wo IV contrast Result Date: 05/20/2025 Impression: 1. No acute intracranial findings. 2. Probable chronic ischemic and atrophic changes. Report Dictated on Electronically Signed By: Alirio Gamboa MD Electronically Signed Date/Time: 05/20/2025 11:15 PM EDT XR chest 1 view Result Date: 05/20/2025 Impression: 1. Findings compatible with vascular congestion. 2.. Findings which may represent left basilar atelectasis, mild infiltrate(s) or postinflammatory change and small left pleural effusion, new in the interval. Report Dictated on Electronically Signed By: Alirio Gamboa MD Electronically Signed Date/Time: 05/20/2025 10:36 PM EDT Assessment and Plan: Principal Problem: Acute metabolic encephalopathy Assessment: Septic shock Acute resp failure, LLL pneumonia Chronic resp failure on home O2 Acute encephalopathy Hyponatremia HFrEF 21%, biventricular failure has 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, Afib on eliquis Alcohol use disorder Seizure like activity per ER note VIMAL Hypokalemia hypophsphatemia Plan: Neuro - sedation (fpropofol :20) RAAS 0 to -2 - fentanyl 25mcg PRN - continue keppra 500mg. Discontinued per neurology -No acute findings on EEG - pain medication has need it, acetaminophen 1g PRN - follow up with Neuro recommendations - SAT/SBT Cardiovascular - monitor V/S - Levophed: 6 mcg/hr; off - follow up with ECHO Pulmonology - mechanical vent - follow up with chest xray - follow up with respiratory panel - extubated today possibly GI - continue pantoprazole 40mg IV - Tube feeds tomorrow Renal - monitor VIMAL - replenish electrolytes has need it - continue fluids - follow up with bmp q6 - goal correction for hyponatremia Heme/Onc - wbc; 30.6, trend - DVT prophylaxis Eliquis 5mg I/D -vancomycin- discontinued -Discontinue cefepime 2g -Start rocephin 2g -continue doxycycline; 100 mg/ dc - streptococcus pneumonia on urine -follow up with Blood culture GI Prophylaxis: Pantoprazole IV DVT Prophylaxis: eliquis Disposition: Remain in ICU Status s. [1] apixaban, 5 mg, Per NG/OG Tube, BID calcium gluconate, 3,000 mg, IntraVENous, Once cefepime, 2,000 mg, IntraVENous, q8h [START ON 05/22/2025] chlorhexidine, , Topical, Daily [Held by provider] dapagliflozin, 5 mg, Oral, Daily doxycycline, 100 mg, IntraVENous, q12h folic acid 1 mg in dextrose 5 % 50 mL IVPB, 1 mg, IntraVENous, Daily Hydrocortisone Sod Suc (PF), 100 mg, IntraVENous, q12h ipratropium-albuterol, 3 mL, Nebulization, TID levETIRAcetam, 500 mg, IntraVENous, BID [Held by provider] losartan, 25 mg, Oral, Daily [Held by provider] metoprolol succinate XL, 100 mg, Oral, Daily montelukast, 10 mg, Oral, Nightly mupirocin, 1 Application, Nasal, BID pantoprazole (ProtoNix) 40 mg in sodium chloride (PF) 0.9 % 10 mL injection, 40 mg, IntraVENous, Daily potassium chloride, 10 mEq, IntraVENous, q1h potassium phosphates 20 mmol in sodium chloride 0.9 % 250 mL IVPB, 20 mmol, IntraVENous, Once rosuvastatin, 40 mg, Oral, Daily [Held by provider] sertraline, 100 mg, Oral, Daily sodium chloride 0.9%, 5-40 mL, IntraCATHeter, q8h [Held by provider] spironolactone, 25 mg, Oral, Daily thiamine, 100 mg, IntraVENous, Daily [Held by provider] torsemide, 40 mg, Oral, BID [2] norepinephrine, 1-100 mcg/min, Last Rate: 6 mcg/min (05/21/25 0522) propofol, 5-50 mcg/kg/min, Last Rate: 20 mcg/kg/min (05/21/25 0541) Cosigned by Leelee Iyer DO at 05/21/2025 6:03 PM EDT Associated attestation - Leelee Iyer DO - 05/21/2025 6:03 PM EDT I have personally performed a [id number] diagnostic evaluation on this patient on date of service 05/21/25. History, labs, imaging studies, and electronic medical record have been reviewed by me. This note documented by the [x]greenhouse technician []ISABELLE reflects my history, exam, and medical decision making. I have reviewed and agree with the care plan. Changes were made in the orders as necessary. ROS documentation was reviewed and negative unless otherwise stated in HPI. 69 y/o M with HFrEF 21% with ICD, afib on eliquis, DVT/PE, COPD, ETOH use who presented after being found unresponsive, admitted with septic shock due to pneumonia. Following commands with sedation decreased. On minimal pressors. Assessment: Septic shock LLL PNA HFrEF, afib on Eliquis COPD Hyponatremia, VIMAL ETOH use Plan: -Sedation transitioned to precedex. Evaluated by NCC, will d/c EEG. -Leukocytosis, elevated procal. Chest with LLL infiltrate. Blood cultures positive for MRSA. On vanc and cefepime. TTE reviewed. ID and cardiology consulted, likely will need MERLIN. Wound care consulted. -Continuing to wean ventilator requirements, likely can SBT tomorrow. -Lactic acidosis resolved, titrating off pressors. Will start to wean solu-cortef. -Na rising appropriately. Cr improving Total critical care time for this patient with life-threatening unstable organ failure, including direct patient contact, management of life support systems, review of data including imaging and labs, and discussions with other team members and physicians at least 40 min so far today, excluding procedures. [facility] Respiratory Care Department Progress Note Spontaneous Awakening Trial Wean Screen SpO2>/=88%: Yes (05/21/25427) FiO2</=50%: Yes (05/21/25427) PEEP </=8cmH2O: Yes (05/21/25427) HR <140 BPM: Yes (05/21/25427) RR </= 35 breaths/min: Yes (05/21/25427) MAP >/= 65mmHg: Yes (05/21/25427) Arterial pH >7.30: Yes (05/21/25427) Safety Screen Spontaneous Breathing Trial (SBT - RT) : Unstable on vasopressors (new drug or titration past 2 hours) (05/21/25427) Spontaneous Breathing Trial Vent Settings Vent Mode: Assist control (05/21/25414) Mandatory Type: VC+ (05/21/25414) Resp Rate (Set): 16 (05/20/252339) Vt (Set, mL): 400 mL (05/20/252339) FiO2 (%): 50 % (05/21/25414) PEEP/CPAP (cm H2O): 8 cm H20 (05/20/252339) Inspiratory Time (sec): 0.9 sec (05/20/252223) Vitals MAP (mmHg): 77 (05/21/25414) Heart Rate: 60 (05/21/25414) Resp: 18 (05/21/25414) SpO2: 99 % (05/21/25414) Suctioning/Secretions Secretion Amount: Small (05/21/25303) ABG results Recent Labs 05/20/25221905/21/25 0323 PHART 7.514* 7.367 [id number] 32.7* 42.6 PO2ART 431.2* 118.2* [id number] 25.7 23.9 [id number] Non-Invasive Ventilator Non-Invasive Ventilator Ventilator Does this patient meet criteria for termination of mechanical ventilation No - Failed Wean Screen Name of physician notified via secure chat or in person : n/a (NA if patient did not meet criteria) Comments: Thank you for involving Respiratory in the care of this patient, documented in this encounter [facility] 06-02-2025 Miscellaneous Notes Patient Choice Patient Name: KRYSTINA MARKHAM Date of : 1955 All Providers Sent Referral Name: [facility] Phone: [phone] Address: [address] [id number] Name: [facility] Phone: [phone] Address: [address] [address] Name: [facility] Phone: [phone] Address: [address] [id number] MAR & Discharge med list transmitted to [facility] per [facility] request. 7000 created in [facility] per [facility] request. Facility notified via [employer]. Transport requested in Roundtrip. Awaiting time confirmation. Confirmed pickup time of 7:00PM by transport [employer] at phone number ([phone]. Location of facility drop off is [facility]. Facility notified via [employer], Radha Hernandez notified on secure chat. Case Management Discharge Summary Note Who you talked to: Name: Krystina Markham PLAN: [facility] Facility Facility: [facility] Task [facility] to send MAR, DC summary, and 7000 to [facility]. CM and STEEL PAN FORM PLACING SUPERVISOR arranging transport. Care Management Progress Note Short Medical why still here: ID and nephrology following. Vanc until 07/05. Started auth 06/01 for [facility]. Once gets auth will get PICC placed. Will follow. Planned Discharge Disposition: [facility] Facility Barriers/Today we still Wait: Administering IV medications, Clinical stability, Electromechanical Assembly Technician recommendations (comment) Length of Stay (Days): 13 GMLOS: 9.6 PICC consult acknowledged. Plan to place once dispo settled/auth obtained. Electronically signed by: Reid Berg MD Internal Medicine Procedural and Nutrition Team 06/02/25 7:39 AM Spoke to patient, he said [facility]. Secure chat Dr Wilkinson, started to start auth now. Task STEEL PAN FORM PLACING SUPERVISOR to start auth for [employer] at [facility]. [employer] auth is pending for [facility] ref #: [id number] Informed patient about [facility] and [facility], states he needs to talk it over with is ex-. Care Management Progress Note Short Medical why still here: IV antibiotics. Rockynol declined. [facility] and [facility] will accept. Will talk to patient. Planned Discharge Disposition: [facility] Facility Barriers/Today we still Wait: Administering IV medications, Clinical stability Length of Stay (Days): 12 GMLOS: 9.6 Spoke to patient, didn't yet pick out any, asked if he wanted me to sent to first 3 on list and go from there, he said sure. Task STEEL PAN FORM PLACING SUPERVISOR can u do a referral to [facility], [facility], and [facility]. Introduced self. Stated I need a choice off the list at bedside. Stated he hadn't look at it. Told him I will be back later in the day to get his choice. Care Management Progress Note Short Medical why still here: IV antibioitcs. PICC line. ID following. Cardiology signed off. Will get choices for SNF. Planned Discharge Disposition: [facility] Facility Barriers/Today we still Wait: Administering IV medications, Clinical stability, Electromechanical Assembly Technician recommendations (comment), Patient/caregiver facility choice Length of Stay (Days): 11 GMLOS: 9.6 Patient agreeable to SNF. Pending choices. Home care to sign off. Please re-consult if a home care need arises. Pt states he is interested in a SNF. SNF list given. Will need OT to eval and choices. . Care Management Progress Note Short Medical why still here: Continues on IV antibiotics. PT states SNF, will see if he wants to go. Planned Discharge Disposition: Home or Self Care Barriers/Today we still Wait: Administering IV medications, Clinical stability, Other (comment) Length of Stay (Days): 8 GMLOS: 9.6 HIPAA compliant message left for patient on preferred number. Awaiting call back. Machine Precision Etcher following case for Discharge Needs. Care Management Progress Note Short Medical why still here: Transfer from [facility]. On IV antibiotics for pneumonia. Supposed to wear 02 at home, is noncompliant Planned Discharge Disposition: Other (Comment) (tbd - ID plan pend, JERAD following) Barriers/Today we still Wait: Administering IV medications, Clinical stability, Electromechanical Assembly Technician recommendations (comment), Symptomatic control Length of Stay (Days): 7 GMLOS: 9.6 Care Management Progress Note Short Medical why still here: Tcc chart review complete, s/p Laser lead extraction and MERLIN during EP case, ID plan pend, 4Lnc, iv atb - rocephin and vanc, tele, tcc to follow Planned Discharge Disposition: Other (Comment) (tbd - ID plan pendJERAD following) Barriers/Today we still Wait: Administering IV medications, Clinical stability, Electromechanical Assembly Technician recommendations (comment), Symptomatic control Length of Stay (Days): 6 GMLOS: 4.9 Care Management Progress Note Short Medical why still here: Plan for RIDES SUPERVISOR D removal with intraprocedural MERLIN for 05/25, cont IVAB- ID following, treat hyponatremia. Planned Discharge Disposition: PT signed off, Keegan Scale >2. Confirmed with patient at the bedside that he lives independently alone, drives and has multiple siblings that can assist as needed. Barriers/Today we still Wait: Administering IV medications, Clinical stability Length of Stay (Days): 4 GMLOS: No GMLOS Documented Care Management Progress Note Short Medical why still here: Sedated/Intubated, IVAB, IV steroids, cEEG, Neurology following. Planned Discharge Disposition: Other (Comment) (TBD pending progress.) Barriers/Today we still Wait: Administering IV medications, Clinical stability, Symptomatic control Length of Stay (Days): 1 GMLOS: No GMLOS Documented ABCDEF Bundle Assessment A=Assess, Prevent and Manage Pain Most Recent Pain Scale: Critical-Care Pain Observation Tool Numeric Pain Rating: Pain Score: 0 - No pain Ventilation Status: Intubated CPOT Score: 0 Pain Interventions: Pain controlled. No new analgesics ordered Scheduled Medications: Scheduled Meds[1] PRN Medications: PRN Meds[2] B=Both Spontaneous Awakening and Breathing Trials Safety Screen SAT: SAT Outcome: C=Choice of Sedation RASS: Alert & Calm-Spontaneously pays attention to caregiver Continuous Infusions: Continuous Meds[3] D=Delirium Overall CAM-ICU: Positive E=Exercise and Early Mobility Early Mobility/Exercise Safety Screen: Activity: -[facility] Score: Lying in bed LDAs CVC Triple Lumen 05/21/25 Right Internal jugular (Active) Number of days: 0 Peripheral IV 05/20/25 Right Antecubital (Active) Number of days: 0 Peripheral IV 05/20/25 Anterior;Left;Upper Arm (Active) Number of days: 0 NG/OG Tube Center mouth (Active) Number of days: 0 Urethral Catheter Straight-tip (Active) Number of days: 0 ETT 7.5 mm (Active) Number of days: 0 - Central Line indicated: Yes PIV ALSO PRESENT: Yes, additional PIV required - if off pressors later today can consider removing Infusions with high risk of extravasation injury - Polanco indicated: Yes Hourly I&Os (Critical Care ONLY) [1] apixaban, 5 mg, Per NG/OG Tube, BID calcium gluconate, 3,000 mg, IntraVENous, Once cefepime, 2,000 mg, IntraVENous, q8h [START ON 05/22/2025] chlorhexidine, , Topical, Daily [Held by provider] dapagliflozin, 5 mg, Oral, Daily doxycycline, 100 mg, IntraVENous, q12h folic acid 1 mg in dextrose 5 % 50 mL IVPB, 1 mg, IntraVENous, Daily Hydrocortisone Sod Suc (PF), 100 mg, IntraVENous, q12h ipratropium-albuterol, 3 mL, Nebulization, TID levETIRAcetam, 500 mg, IntraVENous, BID [Held by provider] losartan, 25 mg, Oral, Daily [Held by provider] metoprolol succinate XL, 100 mg, Oral, Daily montelukast, 10 mg, Oral, Nightly mupirocin, 1 Application, Nasal, BID pantoprazole (ProtoNix) 40 mg in sodium chloride (PF) 0.9 % 10 mL injection, 40 mg, IntraVENous, Daily potassium phosphates 20 mmol in sodium chloride 0.9 % 250 mL IVPB, 20 mmol, IntraVENous, Once rosuvastatin, 40 mg, Oral, Daily [Held by provider] sertraline, 100 mg, Oral, Daily sodium chloride 0.9%, 5-40 mL, IntraCATHeter, q8h [Held by provider] spironolactone, 25 mg, Oral, Daily thiamine, 100 mg, IntraVENous, Daily [Held by provider] torsemide, 40 mg, Oral, BID [2] fentaNYL, 25 mcg, IntraVENous, q2h PRN fentaNYL, 50 mcg, IntraVENous, q2h PRN flumazenil, 0.2 mg, IntraVENous, Once PRN midazolam, 1 mg, IntraVENous, q2h PRN midazolam, 2 mg, IntraVENous, q2h PRN naloxone, 0.4 mg, IntraVENous, Once PRN ondansetron ODT, 4 mg, Oral, q8h PRN Or ondansetron, 4 mg, IntraVENous, q6h PRN sodium chloride 0.9%, 5-40 mL, IntraVENous, PRN [3] norepinephrine, 1-100 mcg/min, Last Rate: 6 mcg/min (05/21/25 05) propofol, 5-50 mcg/kg/min, Last Rate: 20 mcg/kg/min (05/21/25 05) Family Communication Number Called: [phone] Name of Designated Family Call Center Operations Manager: Melodie Ang Relationship: Other Phone Call Outcome: There was no answer when the number listed above was called. Family Call Center Operations Manager Updated on the Following: I attempted calling the family members listed above. I was unable to get hold of them. Will attempt calling at a later time. Associated Order(s): Central Line Insertion Procedure Central Line Insertion Performed by: Prince Joseph DO Authorized by: Prince Joseph DO Consent: The indications, risks, benefits, alternatives to the procedure were explained to the patient/surrogate decision maker and their questions answered. Consent was obtained to proceed with the procedure. Timeout: Completed immediately prior to the start of the procedure which included verification of the correct patient, correct site and agreement on the procedure to be done. Indication: Lack of adequate PIV access Anesthetic: Local anesthetic used: lidocaine without epinephrine Procedure Details: Preparation: skin prepped with chlorhexidine Skin prep agent dried: skin prep agent completely dried prior to procedure Sterile barriers: all five maximum sterile barriers used - cap, mask, sterile gown, sterile gloves, and large sterile sheet Hand hygiene: hand hygiene performed prior to central venous catheter insertion Sterile technique: Sterile technique maintained throughout procedure. Central Line Type: central venous catheter Orientation: right Location details: internal jugular Patient position: flat Catheter type: triple lumen Catheter size: 7 Fr Pre-procedure: landmarks identified Number of attempts: 1 Ultrasound guidance: yes Post-Procedure: Post-procedure: line sutured and antimicrobial dressing applied Description/Findings: dark, non-pulsatile blood return obtained from all lumens Estimated blood loss: < 5 mL Complications: No apparent complications Follow-up chest x-ray: completed, line in appropriate position Assistants & Supervision: I personally performed the procedure documented as signed by this procedure note Seismograph Observer(s): N/A Prince Joseph DO 05/25/25 2258 MAY- CORE MEASURE DATA SIRS Criteria Sepsis Criteria Severe Sepsis Criteria Septic Shock Criteria Must meet 2: [x] Temperature > 100.4 F (38 C) or < 96.8 F (36 C) [] HR > 90 [x] RR > 20 [x] WBC > 12 or < 4 or 10% bands Must be confirmed or suspected to move forward with diagnosis of sepsis. Must select at least one: [x] Bacterial Infection Confirmed or Suspected. [] Viral Infection Confirmed or Suspected. [] Fungal Infection Confirmed or Suspected. [] No infection present. Patient does not meet criteria for Sepsis. Must meet 1: [x] Lactate > 2 or [x] Signs of Organ Dysfunction: - SBP < 90 or MAP < 65 - Altered mental status - Creatinine > 2 or increased from baseline - Urine Output < 0.5 ml/kg/hr - Bilirubin > 2 - INR > 1.5 - Platelets < 100,000 - Acute Respiratory Failure as evidenced by new need for NIPPV or mechanical ventilation [] No criteria met for Severe Sepsis. Must meet 1: [] Lactate = or > 4 or [] SBP < 90 or MAP < 65 for at least two readings in the first hour after fluid bolus administration [x] No criteria met for Septic Shock. Patient Vitals from 05/20/25 2301 to 05/21/25 0000 BP Pulse Resp SpO2 Weight 05/20/25 2318 (!) 97/42 76 16 95 % -- 05/20/25 2332 108/66 78 24 (!) 84 % -- 05/20/25 2337 (!) 63/54 73 20 (!) 90 % -- 05/20/25 2340 -- 70 -- 95 % -- 05/20/25 2341 83/51 68 16 95 % 90.7 kg (200 lb) 05/20/25 2342 83/51 71 -- 95 % -- 05/20/25 2343 (!) 81/48 67 -- 95 % -- Recent Labs 05/20/25 2220 WBC 12.7* LACTATE 3.3* CREATININE 1.48* BILITOT 1.2* PLT 171 Sepsis Identified at 2220 hours. Fluid Resuscitation Rational: Due to concern for fluid overload, ordered less than 30cc/kg actual body weight. Actual fluid amount given: 1000 mL Infection Source: Unknown Reassessment Exam: Not applicable. Patient does not have Septic Shock. PRIYA Miller CNP documented in this encounter [facility] 06-02-2025 Note [facility]25 Procedure note Associated Ord er(s): PICC Insertion/Replacement Post-Procedure Diagnose(s): Bloodstream infection PICC Insertion/Replacement Date/Time: 06/02/2025 3:27 PM Performed by: Reid Berg MD Authorized by: Reid Berg MD Consent: The indications, risks, benefits, alternatives to the procedure were explained to the patient/surrogate decision maker and their questions answered. Consent was obtained to proceed with the procedure. Timeout: Completed immediately prior to the start of the procedure which included verification of the correct patient, correct site and agreement on the procedure to be done. Indications: Indications: Long-term antibiotics and other (see comment) Indications comment: MRSA BSI Anesthetic: Local anesthetic used: lidocaine without epinephrine Procedure details: Preparation: Skin prepped with chlorhexidine Skin prep agent dried: Skin prep agent completely dried prior to procedure Sterile barriers: All five maximal sterile barriers used - gloves, gown, cap, mask and large sterile sheet Hand hygiene: Hand hygiene performed prior to central venous catheter insertion Sterile technique: Sterile technique maintained throughout procedure. Site prior to insertion: Ecchymosis and edema Procedure type: Insertion Orientation: right Location: Brachial Catheter type: Double lumen Catheter size: 5 Fr Lot #: [id number] Trimmed at (cm): 40 Inserted at (cm): 40 Ultrasound guidance: Yes Post-procedure: Post-procedure: Antimicrobial dressing applied and securement device Description/Findings: Flushes easily and blood returned Estimated blood loss: < 5 mL Specify complication(s): No apparent complications Follow-up chest x-ray: Ordered Images from the original note were not included. [facility] [address] [place] [id number] CONTINUOUS LONG-TERM VIDEO EEG MONITORING REPORT Patient Name: Krystina Markham : 1955 Date of Study: 05/22/2025 Duration Recorded: 10:14:43 EEG#: [id number] SKIMMER SCOOP OPERATOR: AMAN PROVIDER REQUESTING STUDY: Jayna Bowling DO REASON FOR EXAM: Evaluate for epileptiform activity DIAGNOSIS TAG: Encephalopathy NOS (ENC-NOS) HISTORY: Krystina Markham is a 69 y.o. male who presents to the emergency department with chief complaint of concern for respiratory distress. Ex- went to check on the patient today and he was found minimally responsive and having difficulty breathing. Apparently lives home alone and is supposed to wear oxygen at home due to history of COPD. Per EMS, ex- also was concerned that he might of taken too many of his home medications. EMS treated with CPAP placement, Solu-Medrol, and a DuoNeb treatment. However, they were concerned that he still seems quite altered despite that treatment and is posturing with his left arm. They were unable to get his left arm to relax to load him into the vehicle and notes that he is also clenching his fingers with slight tremor. Patient is supposed to be on Eliquis but it is unclear if he has been compliant with it. MEDICATIONS: Current Medications[1] TECHNICAL ASPECTS: This continuous scalp EEG study with video was carried out at [facility]. Scalp electrodes were positioned in person by an nanotechnologist, following patient education, according to the 10-20 International system of electrode placement and maintained for integrity and quality of the recording. EEG data with video was recorded continuously and digitally stored. The nanotechnologist reviewed all automated detections and manual events and prepared the data for archiving and provider review. Referential and bipolar montages were used for review. TECHNOLOGIST NOTES: No skull or scalp defects were observed. This video-EEG monitoring was continuously monitored, 4 patients per technologist. BACKGROUND ACTIVITY: Posterior background activity:A continuous organized 7 Hz, 10-25 uV rhythm was seen symmetrically over the posterior head regions bilaterally. Beta range: Fronto-centrally predominant beta range activity (15-25 Hz, 10-20 uV) was seen. Sleep: Stage N2 sleep was reached as evidenced by the appearance of vertex waves and sleep spindles seen over the fronto-central head regions bilaterally. Normal Variants: None SLOWING: Semicontinuous (50-90% of the recording) diffuse delta-theta (0.5-5.5 Hz. 10-60 uV) irregular to semirhythmical slowing was seen at times responsive to stimulation. 06:36:45 -Slowing, generalized (AP Bipolar, LFF=1Hz, HFF=30Hz, Sens=5 uV/mm) INTERICTAL EPILEPTIFORM ACTIVITY: No epileptiform activity was seen. ICTAL ACTIVITY: No ictal activity was seen. NON-EPILEPTIC EVENTS: None. ACTIVATION PROCEDURES: Photic stimulation was not performed. Hyperventilation was not performed. IMPRESSION AND ACTIONS TAKEN: This continuous EEG with video is abnormal. Semicontinuous diffuse oaeokquv-eb-ilsnzm slowing is seen at times responsive to stimulation. Neither interictal epileptiform activity or seizures are observed. Sleep architecture is seen. The findings are supportive of a moderate diffuse encephalopathy non-specific as to etiology. Will discontinue video-EEG monitoring. Leonel Laurent MD PhD Epilepsy Attending [1] Current Facility-Administered Medications Medication Dose Route Frequency Provider Last Rate Last Admin apixaban (Eliquis) tablet 5 mg 5 mg Per NG/OG Tube BID Jayna Neopaney, DO 5 mg at 05/22/25 0737 cefTRIAXone (Rocephin) 1,000 mg in sodium chloride 0.9 % 50 mL IVPB Mini-Bag Plus 1,000 mg IntraVENous q24h Reeya Jerry, DO 100 mL/hr at 05/22/25 1124 1,000 mg at 05/22/25 1124 chlorhexidine (Hibiclens) 4 % solution Topical Daily Jayna Neopaney, DO [Held by provider] dapagliflozin (Farxiga) tablet 5 mg 5 mg Oral Daily Jayna Neopaney, DO folic acid 1 mg in dextrose 5 % 50 mL IVPB 1 mg IntraVENous Daily Jayna Neopaney, DO Stopped at 05/21/25 0904 ipratropium-albuterol (Duo-Neb) 0.5-2.5 mg/3 mL nebulizer solution 3 mL 3 mL Nebulization BID PRN Jayna Neopaney, DO [Held by provider] losartan (Cozaar) tablet 25 mg 25 mg Oral Daily Jayna Neopaney, DO [Held by provider] metoprolol succinate XL (Toprol-XL) 24 hr tablet 100 mg 100 mg Oral Daily Jayna Neopaney, DO montelukast (Singulair) tablet 10 mg 10 mg Oral Nightly Jayna Neopaney, DO 10 mg at 05/21/252007 mupirocin (Bactroban) 2 % ointment 1 Application 1 Application Nasal BID Jayna Neopaney, DO 1 Application at 05/22/25 0834 ondansetron ODT (Zofran-ODT) disintegrating tablet 4 mg 4 mg Oral q8h PRN Jayna Neopaney, DO Or ondansetron (Zofran) injection 4 mg 4 mg IntraVENous q6h PRN Jayna Neopaney, DO pantoprazole (ProtoNix) 40 mg in sodium chloride (PF) 0.9 % 10 mL injection 40 mg IntraVENous Daily Jayna Neopaney, DO 40 mg at 05/22/25 0834 [START ON 05/23/2025] predniSONE (Deltasone) tablet 40 mg 40 mg Oral Daily Reeya Jerry, DO rosuvastatin (Crestor) tablet 40 mg 40 mg Oral Daily Jayna Neopaney, DO 40 mg at 05/21/25 0840 sertraline (Zoloft) tablet 100 mg 100 mg Per NG/OG Tube Daily Ramy Squires, DO 100 mg at 05/22/25 0737 sodium chloride 0.9% (NS) flush 5-40 mL 5-40 mL IntraCATHeter q8h Jayna Neopaney, DO 5 mL at 05/22/25 0149 sodium chloride 0.9% (NS) flush 5-40 mL 5-40 mL IntraVENous PRN Jayna Neopaney, DO [Held by provider] spironolactone (Aldactone) tablet 25 mg 25 mg Oral Daily Jayna Neopaney, DO thiamine (Vitamin B1) injection 100 mg 100 mg IntraVENous Daily Jayna Neopaney, DO 100 mg at 05/22/25 0834 [Held by provider] torsemide (Demadex) tablet 40 mg 40 mg Oral BID Jayna Neopaney, DO vancomycin IVPB 1500 mg in 250 mL NS (premix) 1,500 mg IntraVENous q24h Leelee Iyer, Stopped at 05/21/25 2306 Images from the original note were not included. [facility] [address] [place] [id number] CONTINUOUS LONG-TERM VIDEO EEG MONITORING REPORT Patient Name: Krystina Markahm : 1955 Date of Study: 05/21/2025 Duration Recorded: 19:45:24 EEG#: [id number] SKIMMER SCOOP OPERATOR: AMAN PROVIDER REQUESTING STUDY: Jayna Bowling DO REASON FOR EXAM: Evaluate for epileptiform activity DIAGNOSIS TAG: Encephalopathy NOS (ENC-NOS) HISTORY: Krystina Markham is a 69 y.o. male who presents to the emergency department with chief complaint of concern for respiratory distress. Ex- went to check on the patient today and he was found minimally responsive and having difficulty breathing. Apparently lives home alone and is supposed to wear oxygen at home due to history of COPD. Per EMS, ex- also was concerned that he might of taken too many of his home medications. EMS treated with CPAP placement, Solu-Medrol, and a DuoNeb treatment. However, they were concerned that he still seems quite altered despite that treatment and is posturing with his left arm. They were unable to get his left arm to relax to load him into the vehicle and notes that he is also clenching his fingers with slight tremor. Patient is supposed to be on Eliquis but it is unclear if he has been compliant with it. MEDICATIONS: Current Medications[1] TECHNICAL ASPECTS: This continuous scalp EEG study with video was carried out at [facility]. Scalp electrodes were positioned in person by an nanotechnologist, following patient education, according to the 10-20 International system of electrode placement and maintained for integrity and quality of the recording. EEG data with video was recorded continuously and digitally stored. The nanotechnologist reviewed all automated detections and manual events and prepared the data for archiving and provider review. Referential and bipolar montages were used for review. TECHNOLOGIST NOTES: No skull or scalp defects were observed. This video-EEG monitoring was continuously monitored, 4 patients per technologist. BACKGROUND ACTIVITY: Posterior background activity:A continuous organized 6-7 Hz, 10-25 uV rhythm was seen symmetrically over the posterior head regions bilaterally. Beta range: Fronto-centrally predominant beta range activity (15-25 Hz, 10-20 uV) was seen. Sleep: Stage N2 sleep was reached as evidenced by the appearance of vertex waves and sleep spindles seen over the fronto-central head regions bilaterally. Normal Variants: None 08:52:37 -Background activity (Referential to average, LFF=1Hz, HFF=30Hz, Sens=5 uV/mm) SLOWING: Semicontinuous (50-90% of the recording) diffuse delta-theta (3.5-6.5 Hz. 20-35 uV) irregular to semirhythmical slowing was seen at times responsive to stimulation. 08:37:52 -Slowing, generalized (AP Bipolar, LFF=1Hz, HFF=30Hz, Sens=5 uV/mm) INTERICTAL EPILEPTIFORM ACTIVITY: No epileptiform activity was seen. ICTAL ACTIVITY: No ictal activity was seen. NON-EPILEPTIC EVENTS: None. ACTIVATION PROCEDURES: Photic stimulation was not performed. Hyperventilation was not performed. IMPRESSION AND ACTIONS TAKEN: This continuous EEG with video is abnormal. Semicontinuous diffuse moderate slowing is seen at times responsive to stimulation. Neither interictal epileptiform activity nor seizures are observed. Sleep architecture is seen. The findings are supportive of a mild to moderate diffuse encephalopathy non-specific as to etiology. Will continue video-EEG monitoring. Jordi Harris, PhD Clinical Neurophysiologist Leonel Laurent MD PhD Epilepsy Attending [1] Current Facility-Administered Medications Medication Dose Route Frequency Provider Last Rate Last Admin apixaban (Eliquis) tablet 5 mg 5 mg Per NG/OG Tube BID Jayna Neopaney, DO 5 mg at 05/22/25 0737 cefTRIAXone (Rocephin) 1,000 mg in sodium chloride 0.9 % 50 mL IVPB Mini-Bag Plus 1,000 mg IntraVENous q24h Reeya Jerry, DO 100 mL/hr at 05/22/25 1124 1,000 mg at 05/22/25 1124 chlorhexidine (Hibiclens) 4 % solution Topical Daily Jayna Neopaney, DO [Held by provider] dapagliflozin (Farxiga) tablet 5 mg 5 mg Oral Daily Jayna Neopaney, DO folic acid 1 mg in dextrose 5 % 50 mL IVPB 1 mg IntraVENous Daily Jayna Neopaney, DO Stopped at 05/21/25 0904 ipratropium-albuterol (Duo-Neb) 0.5-2.5 mg/3 mL nebulizer solution 3 mL 3 mL Nebulization BID PRN Jayna Neopaney, DO [Held by provider] losartan (Cozaar) tablet 25 mg 25 mg Oral Daily Jayna Neopaney, DO [Held by provider] metoprolol succinate XL (Toprol-XL) 24 hr tablet 100 mg 100 mg Oral Daily Jayna Neopaney, DO montelukast (Singulair) tablet 10 mg 10 mg Oral Nightly Jayna Neopaney, DO 10 mg at 05/21/252007 mupirocin (Bactroban) 2 % ointment 1 Application 1 Application Nasal BID Jayna Neopaney, DO 1 Application at 05/22/25 0834 ondansetron ODT (Zofran-ODT) disintegrating tablet 4 mg 4 mg Oral q8h PRN Jayna Neopaney, DO Or ondansetron (Zofran) injection 4 mg 4 mg IntraVENous q6h PRN Jayna Neopaney, DO pantoprazole (ProtoNix) 40 mg in sodium chloride (PF) 0.9 % 10 mL injection 40 mg IntraVENous Daily Jayna Neopaney, DO 40 mg at 05/22/25 0834 [START ON 05/23/2025] predniSONE (Deltasone) tablet 40 mg 40 mg Oral Daily Reeya Jerry, DO rosuvastatin (Crestor) tablet 40 mg 40 mg Oral Daily Jayna Neopaney, DO 40 mg at 05/21/25 0840 sertraline (Zoloft) tablet 100 mg 100 mg Per NG/OG Tube Daily Ramy Squires, DO 100 mg at 05/22/25 0737 sodium chloride 0.9% (NS) flush 5-40 mL 5-40 mL IntraCATHeter q8h Jayna Neopaney, DO 5 mL at 05/22/25 0149 sodium chloride 0.9% (NS) flush 5-40 mL 5-40 mL IntraVENous PRN Jayna Neopaney, DO [Held by provider] spironolactone (Aldactone) tablet 25 mg 25 mg Oral Daily Jayna Neopaney, DO thiamine (Vitamin B1) injection 100 mg 100 mg IntraVENous Daily Jayna Neopaney, DO 100 mg at 05/22/25 0834 [Held by provider] torsemide (Demadex) tablet 40 mg 40 mg Oral BID Jayna Neopaney, DO vancomycin IVPB 1500 mg in 250 mL NS (premix) 1,500 mg IntraVENous q24h Leelee Iyer DO Stopped at 05/21/25 9746 documented in this encounter [facility] 06-02-2025 Note [facility] 06-02-2025 Hospital course Narrative Internal Medicine: Med Team Discharge Summary Krystina Markham : 1955 ADMIT DATE: 05/20/2025 DISCHARGE DATE: 06/02/25 PCP: Toi Davis MD Visit Status: Admission Code Status: FULL CODE Primary Discharge Diagnosis: Septic shock 2/2 MRSA bacteremia and LLL PNA - resolved Secondary Discharge Diagnoses: Acute encephalopathy - resolved VIMAL - resolved Acute on chronic respiratory failure 2/2 COPD - resolved Transaminitis NAGMA - improving 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 male w/ PMHx significant for COPD, HFrEF (EF 21% in 11/2023) s/p ICD, A-fib on eliquis, Hx of DVT and PE, Hx of ETOH abuse who initially presented to the [facility] on 04/19/25 from home after patient was found by his ex at home minimally responsive and was having difficulty breathing. Patient found to have septic shock and acute respiratory failure 2/2 LLL pneumonia and MRSA bacteremia. Intubated at [facility] and transferred to [facility] MICU for further evaluation. Patient was extubated on 05/22, currently stable on room air. ID following, currently on vanc which he will require until 07/05. S/p lead extraction/replacement 05/26. Hospital course complicated by downtrending chloride level since restarting home diuretic and history of chronic hyponatremia. Nephrology consulted and thought likely due to diuresis, trialing reducing his torsemide dose given current euvolemic status. Patient developed a mild transaminitis on 06/01, US of abdomen with no acute findings, hepatomegaly, right renal cyst. Liver doppler US without thrombus. Holding statin for now. PICC placed 06/02. Patient is hemodynamically stable for discharge to SNF. CMP q5 days x3 to trend LFTs. Recommend follow-up with PCP regarding worsening transaminitis with negative hep panel. Disposition: SNF Activity: No restriction. Diet: Adult diet Regular Discharge Medications: Medication List PAUSE taking these medications rosuvastatin 40 MG tablet Wait to take this until your doctor or other care provider tells you to start again. Commonly known as: Crestor TAKE 1 TABLET BY MOUTH EVERY DAY START taking these medications mometasone-formoterol 100-5 MCG/ACT inhaler Commonly known as: Dulera 100 Inhale 2 puffs 2 times daily. Rinse mouth with water after use to reduce aftertaste and incidence of candidiasis. Do not swallow. thiamine 100 MG tablet Commonly known as: Vitamin B1 Take 1 tablet (100 mg) by mouth daily. Start taking on: June 03, 2025 tiotropium 2.5 MCG/ACT inhaler Commonly known as: Spiriva Respimat Inhale 2 puffs daily. Start taking on: June 03, 2025 Vancomycin HCl in NS 1.5-0.9 GM/250ML-% solution Commonly known as: Vancocin Infuse 250 mL (1,500 mg) into a venous catheter Every 24 hours. Start taking on: June 03, 2025 CHANGE how you take these medications metoprolol succinate XL 25 MG 24 hr tablet Commonly known as: Toprol-XL Take 3 tablets (75 mg) by mouth 2 times daily. Do not crush or chew. What changed: medication strength See the new instructions. torsemide 10 MG tablet Commonly known as: Demadex Take 3 tablets (30 mg) by mouth 2 times daily. What changed: medication strength how much to take when to take this CONTINUE taking these medications albuterol (2.5 MG/3ML) 0.083% nebulizer solution Take 3 mL (2.5 mg) by nebulization as needed for wheezing or shortness of breath. apixaban 5 MG tablet Commonly known as: Eliquis Take 1 tablet (5 mg) by mouth 2 times daily. dapagliflozin 5 MG tablet Commonly known as: Farxiga Take 1 tablet (5 mg) by mouth daily. folic acid 1 MG tablet Commonly known as: Folvite TAKE 1 TABLET (1,000 MCG) BY MOUTH EVERY MORNING. losartan 25 MG tablet Commonly known as: Cozaar TAKE 1 TABLET BY MOUTH EVERY DAY sertraline 100 MG tablet Commonly known as: Zoloft TAKE 1 TABLET BY MOUTH EVERY DAY spironolactone 25 MG tablet Commonly known as: Aldactone TAKE 1 TABLET BY MOUTH EVERY DAY STOP taking these medications montelukast 10 MG tablet Commonly known as: Singulair Trelegy Ellipta 100-62.5-25 MCG/ACT aerosol powder Generic drug: Zligkblqeco-Gyhhtyhce-Dbgeuh Where to Get Your Medications These medications were sent to [facility]/pharmacy #[id number] AT [place] [id number] sertraline 100 MG tablet Information about where to get these medications is not yet available Ask your nurse or doctor about these medications metoprolol succinate XL 25 MG 24 hr tablet mometasone-formoterol 100-5 MCG/ACT inhaler thiamine 100 MG tablet tiotropium 2.5 MCG/ACT inhaler torsemide 10 MG tablet Vancomycin HCl in NS 1.5-0.9 GM/250ML-% solution Notable Medication Changes & Reasoning: -On IV vanc until 07/05 per ID recommendations -Stopped crestor 2/2 transaminitis -Dulera and Spiriva started in place of Trelegy 2/2 noncompliance -Torsemide dose decreased for contraction alkalosis Consultants Critical care Infectious disease Cardiology Wound care Procedures Performed 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 removal 05/25/2025 PICC line placement 06/02/2025 Significant Laboratory/Radiographic Data: US liver doppler Final Result 1. No acute findings. 2. Hepatomegaly. 3. Right renal cyst. ULTRASOUND LIVE DOPPLER CLINICAL INDICATION: Elevated LFTs TECHNIQUE: Real-time Doppler ultrasound of the liver. COMPARISON: None FINDINGS: Splenic vein: Patent, with appropriate directional blood flow. Main portal vein: Patent, with appropriate directional blood flow. Peak systolic velocity = 39.8 cm/s Left portal vein: Patent, with appropriate directional blood flow. Right portal vein: Patent, with appropriate directional blood flow. Hepatic artery: Patent, with appropriate directional blood flow. Peak systolic velocity = 73.8 cm/s. Resistive index = 0.62-0.76 Left hepatic vein: Patent, with appropriate directional blood flow. Middle hepatic vein: Patent, with appropriate directional blood flow. Right hepatic vein: Patent, with appropriate directional blood flow. IVC: Patent, with appropriate directional blood flow. IMPRESSION: 1. All interrogated blood vessels grossly patent and with appropriate directional blood flow. Report Dictated on Electronically Signed By: Alirio Gamboa MD Electronically Signed Date/Time: 06/01/2025 11:58 PM EDT US abdomen complete Final Result 1. No acute findings. 2. Hepatomegaly. 3. Right renal cyst. ULTRASOUND LIVE DOPPLER CLINICAL INDICATION: Elevated LFTs TECHNIQUE: Real-time Doppler ultrasound of the liver. COMPARISON: None FINDINGS: Splenic vein: Patent, with appropriate directional blood flow. Main portal vein: Patent, with appropriate directional blood flow. Peak systolic velocity = 39.8 cm/s Left portal vein: Patent, with appropriate directional blood flow. Right portal vein: Patent, with appropriate directional blood flow. Hepatic artery: Patent, with appropriate directional blood flow. Peak systolic velocity = 73.8 cm/s. Resistive index = 0.62-0.76 Left hepatic vein: Patent, with appropriate directional blood flow. Middle hepatic vein: Patent, with appropriate directional blood flow. Right hepatic vein: Patent, with appropriate directional blood flow. IVC: Patent, with appropriate directional blood flow. IMPRESSION: 1. All interrogated blood vessels grossly patent and with appropriate directional blood flow. Report Dictated on Electronically Signed By: Alirio Gamboa MD Electronically Signed Date/Time: 06/01/2025 11:58 PM EDT XR chest 1 view Final Result XR chest 1 view Final Result Atelectasis at the lung bases. Chronic obstructive pulmonary disease Report Dictated on Electronically Signed By: Gunner Moreno MD Electronically Signed Date/Time: 05/23/2025 6:29 AM EDT XR chest 1 view Final Result No significant change when compared with the previous study. Report Dictated on Electronically Signed By: Charlie Carter MD Electronically Signed Date/Time: 05/22/2025 9:09 AM EDT XR chest 1 view Final Result Atelectasis and fluid on the left. No new abnormality Report Dictated on Electronically Signed By: Gunner Moreno MD Electronically Signed Date/Time: 05/21/2025 6:57 AM EDT XR abdomen 1 view Final Result Nasogastric tube in adequate position. No acute abnormality Report Dictated on Electronically Signed By: Gunner Moreno MD Electronically Signed Date/Time: 05/21/2025 3:43 AM EDT XR chest 1 view Final Result Central venous catheter in adequate position without pneumothorax Report Dictated on Electronically Signed By: Gunner Moreno MD Electronically Signed Date/Time: 05/21/2025 12:26 AM EDT XR chest 1 view Final Result Endotracheal tube and nasogastric tube in adequate position. Atelectasis at the left lung base with left pleural fluid Report Dictated on Electronically Signed By: Gunner Moreno MD Electronically Signed Date/Time: 05/21/2025 12:[address] chest abdomen pelvis without contrast Final Result Infiltrate in the left posterior lung base suspicious for pneumonia. Again seen are compression fractures of T6-T8. Interval development of a compression fracture of T9. Report Dictated on Electronically Signed By: Paul Levia MD Electronically Signed Date/Time: 05/20/2025 11:[address] head wo IV contrast Final Result 1. No acute intracranial findings. 2. Probable chronic ischemic and atrophic changes. Report Dictated on Electronically Signed By: Alirio Gamboa MD Electronically Signed Date/Time: 05/20/2025 11:15 PM EDT XR chest 1 view Final Result 1. Findings compatible with vascular congestion. 2.. Findings which may represent left basilar atelectasis, mild infiltrate(s) or postinflammatory change and small left pleural effusion, new in the interval. Report Dictated on Electronically Signed By: Alirio Gmaboa MD Electronically Signed Date/Time: 05/20/2025 10:36 PM EDT TTE 05/21/2025: LVEF 50% (improved from 21% in 11/2023) TTE 05/26/2025: Severely reduced LV systolic function, LVEF? Pending Results at Time of Discharge None Follow Up Appointment(s): Future Appointments Date Time Provider Department Center 06/03/2025 1:30 PM Jessenia Crystal, [facility] None 06/08/2025 9:30 AM POP INFUSION CHAIR [facility] None Items to Address at Followup Visit: -CMP q5 days x3 to trend LFTs -Follow-up on worsening transaminitis with negative hep panel. Avoid hepatotoxic meds. Discuss if/when to resume crestor. Cosigned by Ruben Cam MD at 06/02/2025 4:32 PM EDT Associated attestation - Ruben Cam MD - 06/02/2025 4:32 PM EDT Attending Supervising Physician's Attestation Statement Patient seen and examined on 06/02/25. I have discussed the care of Krystina Markham with the Medical student and/or Resident physician I have personally taken a history, examined the patient, and performed the associated medical decision making activities. I have reviewed and verified the attested documentation. Unless otherwise noted below, this documentation reflects the the history, physical exam and medical decision making that I performed myself. Please see below for my personal highlights or additions to the note I spent total time providing counseling or in coordination of care: 51 minutes discussed with nurse, discussed with TCC/SW, patient and family updated, Ipersonally examined the patient, I personally reviewed chart, data, labs radiology reports, and I personally reviewed and agree with resident physical exam, assessment/plan with my noted corrections if any Imp: MRSA pneumonia and sepis Elevated LFT Etoh use Plan: patient's LFT are stable work is negative with ultrasound and acute hep workup he has hx of etoh use and likely related Follow needed for repeat LFT and all drugs stopped Picc placed and pateint is stable for discharge documented in this encounter [facility] 06-01-2025 Hospital Discharge instructions Allan Mckeon RN - 06/01/2025 1:25 PM EDT Images from the original note were not included. Continuity of Care Form Patient Name: Krystina Markham : 1955 Admit date: 05/20/2025 Discharge date: 06/02/2025 Code Status Order: Full Code Advance Directives: N Admitting Physician: Michael Lange MD PCP: Toi Davis MD Discharging Nurse: Lizzie Mckeon Discharging Hospital Unit/Room#: W5-529/W5-529 A Discharging Unit Emergency Contact: Extended Emergency Contact Information Primary Emergency Contact: Melodie Tavarez [address]: [address] [place] [address] Mobile Relation: Other Past Surgical History: Past Surgical History: Procedure Laterality Date ABDOMINAL SURGERY BRONCHOSCOPY 02/25/2020 BRONCHOSCOPY (HISTORICAL) 02/25/2020 CARDIAC ELECTROPHYSIOLOGY PROCEDURE N/A 05/25/2025 Performed by Karthik Mendoza MD at [facility] Cardiac Cath/EP Lab COLONOSCOPY 10/27/[address] CHEST ANGIOGRAM W AND/OR WO IV CONTRAST 07/12/2022 CT CHEST ANGIOGRAM W AND/OR WO IV CONTRAST 07/12/2022 [facility] CT IMAGING FINGER AMPUTATION Left HERNIA REPAIR NOSE SURGERY PACEMAKER (HISTORICAL) Immunization History: Immunization History Administered Date(s) Administered Influenza, High Dose Seasonal, Preservative Free 07/25/2022 Influenza, Unspecified 08/15/2014 Influenza, adjuvanted, trivalent, preservative-free 09/28/2024 Influenza, injectable, quadrivalent, preservative free 09/15/2019, 11/21/2020, 10/13/2021 Pneumococcal Conjugate PCV20, Pf (Prevnar 20) 01/07/2023 Pneumococcal Polysaccharide PPSV23 01/16/2016 Tdap 08/15/2014 Active Problems: Medical Problems Problem List * (Principal) Acute metabolic encephalopathy Chest pain, unspecified type Hypochloremia Tobacco abuse Presence of cardiac resynchronization therapy defibrillator (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) Overview Signed 11/12/2023 12:46 AM by Gifty Holguin MD Biventricular ICD placed in 2019 Alcohol abuse, continuous COPD exacerbation (HCC) Hyponatremia Closed fracture of neck of left humerus with routine healing Anemia in other chronic diseases classified elsewhere Acute exacerbation of CHF (congestive heart failure) (HCC) Medical non-compliance On continuous oral anticoagulation Right arm numbness Persistent depressive disorder DELORES (obstructive sleep apnea) Poor compliance with medication Non-pressure chronic ulcer of other part of right foot with unspecified severity (HCC) Diabetes due to undrl condition w oth diabetic neuro comp (HCC) Alcohol abuse with withdrawal, uncomplicated (HCC) Cervical spondylosis Paroxysmal atrial fibrillation (HCC) DELORES on CPAP Heavy tobacco smoker Cigarette smoker Personal history of smoking Pulmonary HTN (HCC) Financial difficulties Acute on chronic congestive heart failure, unspecified heart failure type (HCC) Moderate malnutrition (CMS/HCC) (HCC) Acute on chronic systolic (congestive) heart failure (HCC) Acute hypercapnic respiratory failure (HCC) Acute on chronic respiratory failure with hypoxia and hypercapnia (HCC) Prolonged QT interval EEG abnormality without seizure Overview Signed 11/03/2024 7:24 AM by Siria Dumont MD The findings are consistent with a LEFT [id number] quadrant cortical irritability superimposed on mild global cerebral dysfunction nonspecific as to etiology. Requires continuous at home supplemental oxygen Bloodstream infection Permanent atrial fibrillation (HCC) History of rib fracture Overview Signed 07/19/2022 9:05 AM by Eunice Pritchett MD Multiple left side 2020 Cor, pulmonale, acute ([facility]) Chronic hyponatremia Overview Addendum 11/12/2023 12:46 AM by Gifty Holguin MD Na usually 124-128. Beer potomania Essential hypertension Compression fracture of thoracic vertebra with routine healing Osteoporosis Diverticulosis of large intestine without diverticulitis History of adenomatous polyp of colon Raynaud phenomenon Alcohol consumption heavy COPD (chronic obstructive pulmonary disease) (HCC) Venous stasis dermatitis of left lower extremity Current moderate episode of major depressive disorder without prior episode (CMS/HCC) HFrEF (heart failure with reduced ejection fraction) ([facility]) Overview Addendum 11/02/2024 3:07 PM by Siria Dumont MD 11/2023 ; Left Ventricle: Left ventricle is moderately dilated. LVIDd is 6.4 cm. Mildly increased wall thickness. Severely reduced left ventricular systolic function. EF by 2D Simpsons Biplane is 21%. Global hypokinesis present. Right Ventricle: Right ventricle is severely dilated. Pacemaker lead present in the right ventricle. Tricuspid Valve: Moderately severe (3+) regurgitation. RVSP may be underestimated in the setting of severe TR. RVSP is 47 mmHg. Left Atrium: Left atrium is severely dilated. LA Vol Index A/L is 73 mL/m2. Right Atrium: Right atrium is severely dilated. Mitral Valve: Annular dilation. Mild to moderate (1-2+) regurgitation. IVC is severely dilated. IVC diameter is dilated and decreases less than 50% during inspiration; therefore the estimated right atrial pressure is elevated (~15 mmHg). Bacteremia Isolation/Infection: No active isolations MRSA Nurse Assessment: Last Vital Signs: BP 91/50 (BP Location: Right arm, Patient Position: Sitting) Pulse 63 Temp 36.8 C (98.2 F) (Temporal) Resp 16 Ht 1.727 m (5' 8") Wt 80 kg (176 lb 6.4 oz) SpO2 98% PF 44 L/min BMI 26.82 kg/m Last documented pain score (0-10 scale): Last Weight: Wt Readings from Last 1 Encounters: 06/01/25 80 kg (176 lb 6.4 oz) Mental Status: MALIKA Patient Mental Status: oriented and alert IV Access: MALIKA IV Access: PICC - site: upper arm right, condition patent and no redness, insertion date: 06/02/2025 Nursing Mobility/ADLs: Walking Minimal assistance Transfer Minimal assistance Bathing Minimal assistance Dressing Minimal assistance Toileting Minimal assistance Feeding Minimal assistance Greenhouse Florist Minimal assistance Med Delivery yes Wound Care Documentation and Therapy: Wound/Incision 05/21/25 Other (comment) Forearm Right;Posterior (Active) Wound Image 05/21/25 0800 Site Assessment Unable to assess 06/01/25 0800 Oriana-Wound Assessment Clean;Dry 05/31/25 0140 Odor None 05/26/25 0800 Drainage Amount None 05/30/25 0732 Treatments Pharmaceutical agent 05/26/25 0800 Primary Dressing Foam 06/01/25 0800 Dressing Status Clean, dry & intact 06/01/25 0800 Number of days: 11 Wound/Incision 05/25/25 Incision Chest Left;Upper (Active) Site Assessment Unable to assess 06/01/25 0800 Oriana-Wound Assessment Clean;Dry;Intact 06/01/25 0800 Odor None 06/01/25 08 Drainage Amount None 05/31/25 0140 Primary Dressing Dry dressing 06/01/25 08 Dressing Status Clean, dry & intact 06/01/25 08 Number of days: 6 Puncture Site 05/25/25 Groin Right (Active) Location Femoral - right 06/01/25 08 Site Assessment No redness, drainage, swelling or hematoma 06/01/25 08 Hemostasis Intervention Closure Device 05/29/25 0400 Dressing Applied Transparent occlusive dressing 05/26/25 08 Multiple Puncture Sites No 05/26/25 08 Number of days: 6 Elimination: Continence: Bowel: yes Bladder: yes Urinary Catheter: None Colostomy/Ileostomy/Ileal Conduit: None Date of Last BM: 06/02/2025 Intake/Output Summary (Last 24 hours) at 06/01/2025 1323 Last data filed at 06/01/2025 1300 Gross per 24 hour Intake 750 ml Output 2775 ml Net -202 ml I/O last 3 completed shifts: In: 2071 (25.9 mL/kg) [P.O.:1722; IV Piggyback:350] Out: 3100 (38.7 mL/kg) [Urine:3100 (1.1 mL/kg/hr)] Weight: 80 kg Safety Concerns: at risk for falls Impairments/Disabilities: none Nutrition Therapy: Current Nutrition Therapy: Oral diet: general Routes of Feeding: oral Liquids: thin liquids Daily Fluid Restriction: no Last Modified Barium Swallow with Video (Video Swallowing Test): not done Treatments at the Time of Hospital Discharge: Respiratory Treatments: PRN Oxygen Therapy: is not on home oxygen therapy. Ventilator: No ventilator support Rehab Therapies: physical therapy, occupational therapy, and speech therapy Weight Bearing Status/Restrictions: no restriction Other Medical Equipment (for information only, NOT a DME order): straight cane, walker, and wheeled walker Other Treatments: N/A Patient's personal belongings (please select all that are sent with patient): none RN SIGNATURE: MANAGEMENT/SOCIAL WORK SECTION Inpatient Status Date: 05/20/25 Discharging to Facility/ Agency Name: [facility] Address: [place] [address] Fax: Dialysis Facility (if applicable) Name: Address: Dialysis Schedule: Phone: Fax: Dusting And Brushing Machine Operator/Mess Attendant signature: ICIAN SECTION Name: Krystina Markham Prognosis: good Condition at Discharge: stable Rehab Potential (if transferring to Rehab): good Recommended Labs or Other Treatments After Discharge: CMP q week x 3 , cbc in 1 week IV vanc till 07/05/25 The individual is being admitted to a nursing facility directly from an [facility] or a unit of a [facility] that is not operated by or licensed by [facility] under section 5119.14 or 5160-3-15.1 5 The individual requires the level of services provided by a nursing facility for the condition for which he or she was treated in the hospital and, Physician Certification: I certify the above information and transfer of Krystina Markham is necessary for the continuing treatment of the diagnosis listed and that he requires halfway facility for less than 30 days. Update Admission H&P: No change in H&P PHYSICIAN SIGNATURE: documented in this encounter [facility] 06-01-2025 Consult note Associated Order (s): IP CONSULT TO NEPHROLOGY Images from the original note were not included. Nephrology Consult Note Consult date: 06/01/25 10:24 AM Patient: Krystina Markham Room number: [id number] Date of Admit: 05/20/2025 LOS: 12 days Referring physician: Mike Wilkinson,* Outpatient Industrial Gas Production Operator: none Reason for Consult Chronic hyponatremia, chronic hypochloremia Chief complaint: Confusion Assessment / Plan 69 y.o M w/ PMHx significant for COPD, HFrEF (last EF 21%, 11/2023) s/p ICD, A-fib on eliquis for AC, Hx of DVT and PE, Hx of ETOH abuse who initially presented to the [facility] on 04/19/25 from home after patient was found at home minimally responsive. Found to have sepsis 2/2 PNA, was intubated and treated in ICU, transferred to [facility] on 05/24. Nephrology is consulted for chronic hyponatremia/hypochloremia. #Hyponatremia - Chronic back to 09/2019, average appears to be ~128 - Did have hospitalization in 2022 with Na < 120, otherwise, Na always >120 - Na 128 today - sOsm: 260, uOsm 244, [place] < 20 on 05/21, consistent with hypovolemic hypoNa - Repeat urine/serum studies ordered - pending #Hypochloremia - appears to be chronic when patient is on diuretics - home torsemide 40 mg bid restarted on 05/28, Cl decreasing since - Cl 101 - > 88 today #Metabolic alkalosis - Bicarb 32, - likely contraction alkalosis 2/2 diuretic use (restarted home torsemide 40 mg bid) - diuretics started on 05/28, bicarb increasing since then - UOP 2-3 L /24hr over last few days #hypokalemia - likely 2/2 metabolic alkalosis - see above - K 3.3 today, repleted by primary Thank you for allowing us to participate in the care of this patient. Please call with any questions. Val Michael DO [facility] ([facility]) Office phone: [phone] Office fax: [phone] Pager: [phone] 06/01/25 History of Present Illness Krystina Markham is a 69 y.o M w/ PMHx significant for COPD, HFrEF (last EF 21%, 11/2023) s/p ICD, A-fib on eliquis for AC, Hx of DVT and PE, Hx of ETOH abuse who initially presented to the [facility] on 04/19/25 from home after patient was found at home minimally responsive. Found to have sepsis 2/2 PNA, was intubated and treated in ICU, transferred to [facility] on 05/24. Following resumption of his home torsemide (40 mg bid), on 05/28, his Cl, Na, and K have decreased and he developed a metabolic alkalosis. Nephrology is consulted for management of this. Past Medical History Medical History[1] Past Surgical History Surgical History[2] Family History Family History[3] Social History Social History[4] Medications Scheduled Meds:Scheduled Meds[5] Continuous Infusions:Continuous Meds[6] Allergies Allergies[7] Review of Systems All systems reviewed and neg except as above. Vital Signs Vitals: 06/01/25 0040 06/01/25 0210 06/01/25 0437 06/01/25 0741 BP: 117/64 104/57 107/60 BP Location: Left arm Patient Position: Sitting Pulse: 65 59 65 Resp: 24 16 18 Temp: 36.9 C (98.5 F) 36.9 C (98.4 F) 36.4 C (97.5 F) TempSrc: Temporal Temporal Temporal SpO2: 92% 95% 92% Weight: 176 lb 6.4 oz (80 kg) Height: PF: Wt Readings from Last 3 Encounters: 06/01/25 176 lb 6.4 oz (80 kg) 11/02/24 194 lb 0.1 oz (88 kg) 10/14/24 188 lb 14.4 oz (85.7 kg) Admit Wt: Weight: 200 lb (90.7 kg) Estimated body mass index is 26.82 kg/m as calculated from the following: Height as of this encounter: 5' 8" (1.727 m). Weight as of this encounter: 176 lb 6.4 oz (80 kg). I/O last 3 completed shifts: In: 2071 (25.9 mL/kg) [P.O.:1722; IV Piggyback:350] Out: 3100 (38.7 mL/kg) [Urine:3100 (1.1 mL/kg/hr)] Weight: 80 kg Net IO Since Admission: 1,642.2 mL [06/01/25 1024] Physical Exam General: A&O x 2, NAD HEENT: Sclera clear, EOMI, MMM, Nose/ears/hearing grossly normal Neck: Supple, trachea midline, no mass, no TM Heart: RRR, no rub/heave Lungs: rhonchi bilaterally, unlabored Abd: Soft, (+) BS, non-tender Ext: No edema Neuro: No tremor/myoclonus Skin: warm and dry, no rash LABS Labs reviewed. Recent Labs 05/30/25 0515 05/31/25 0514 06/01/25 0018 WBC 9.1 8.2 8.6 HGB 10.9* 11.1* 10.7* HCT 32.3* 32.9* 31.5* MCV 88.5 89.2 88.0 PLT 269 316 338 Recent Labs 05/30/25 0515 05/31/25 0514 06/01/25 0018 NA 128* 129* 128* K 3.4* 3.7 3.3* CL 92* 90* 88* CO2 29 33* 32* BUN 20 20 27* CREATININE 0.86 0.81 0.80 GLUCOSE 138* 103 92 CALCIUM 8.1* 8.4* 8.2* MG 1.7 1.4* 1.8 PHOS 2.8 2.5 3.1 ANIONGAP 7 6 8 ALBUMIN -- -- 2.4* Recent Labs 06/01/25 0018 ALT 147* AST 184* ALKPHOS 103 BILITOT 0.5 Diagnostic Studies I personally reviewed History and Physical, MAR, labs and imaging as above. [1] Past Medical History: Diagnosis Date Alcohol consumption heavy 09/10/2015 stopped 3w ago Asthma ([facility]) Atrial fibrillation ([facility]) CHF (congestive heart failure) ([facility]) 01/31/2016 COPD (chronic obstructive pulmonary disease) ([facility]) 09/10/2015 Cor, pulmonale, acute ([facility]) Deep venous thrombosis ([facility]) 02/2016 Depression Hx of blood clots Obesity 09/10/2015 DELORES (obstructive sleep apnea) Pulmonary embolus ([facility]) 6 16 Raynaud phenomenon 09/10/2015 Smoker 09/10/2015 [2] Past Surgical History: Procedure Laterality Date ABDOMINAL SURGERY BRONCHOSCOPY 02/25/2020 BRONCHOSCOPY (HISTORICAL) 02/25/2020 CARDIAC ELECTROPHYSIOLOGY PROCEDURE N/A 05/25/2025 Performed by Karthik Mendoza MD at [facility] Cardiac Cath/EP Lab COLONOSCOPY 10/27/[address] CHEST ANGIOGRAM W AND/OR WO IV CONTRAST 07/12/2022 CT CHEST ANGIOGRAM W AND/OR WO IV CONTRAST 07/12/2022 [facility] CT IMAGING FINGER AMPUTATION Left HERNIA REPAIR NOSE SURGERY PACEMAKER (HISTORICAL) [3] Family History Problem Relation Name Age of Onset Asthma Father Congenital Anomaly Father Cancer Father Asthma Sister Heart disease Mother Heart disease Brother Pacemaker Mother Congenital Anomaly Sister Cancer Mother Diabetes Mother [4] Social History Socioeconomic History Marital status: Tobacco Use Smoking status: Former Current packs/day: 0.25 Average packs/day: 0.3 packs/day for 53.0 years (13.3 ttl pk-yrs) Types: Cigarettes Start date: 1972 Smokeless tobacco: Never Tobacco comments: 8 cig daily Substance and Sexual Activity Alcohol use: Yes Alcohol/week: 7.0 standard drinks of alcohol Types: 7 Cans of beer per week Comment: once beer daily Drug use: Never Social Drivers of Health Financial Resource Strain: Low Risk (09/11/2024) Overall Financial Resource Strain (CARDIA) Difficulty of Paying Living Expenses: Not very hard Food Insecurity: No Food Insecurity (09/11/2024) Hunger Vital Sign Worried About Running Out of Food in the Last Year: Never true Ran Out of Food in the Last Year: Never true Transportation Needs: No Transportation Needs (11/02/2024) PRAPARE - Transportation Lack of Transportation (Medical): No Lack of Transportation (Non-Medical): No Physical Activity: Inactive (09/11/2024) Exercise Vital Sign Days of Exercise per Week: 0 days Minutes of Exercise per Session: 0 min Stress: No Stress Concern Present (09/11/2024) Citizen Of [place] of Occupational Health - Occupational Stress Questionnaire Feeling of Stress : Not at all Social Connections: Socially Isolated (09/11/2024) Social Connection and Isolation Panel [NHANES] Frequency of Communication with Friends and Family: Never Frequency of Social Gatherings with Friends and Family: Never Attends Zoroastrian Services: Never Active Member of Clubs or Organizations: No Attends Club or Organization Meetings: Never Marital Status: Intimate Partner Violence: Not At Risk (05/23/2025) Humiliation, Afraid, Rape, and Kick questionnaire Fear of Current or Ex-Partner: No Emotionally Abused: No Physically Abused: No Sexually Abused: No Housing Stability: Low Risk (11/02/2024) Housing Stability Vital Sign Unable to Pay for Housing in the Last Year: No Number of Times Moved in the Last Year: 0 Homeless in the Last Year: No [5] apixaban, 5 mg, Oral, BID chlorhexidine, , Topical, Daily collagenase, , Topical, Daily dapagliflozin, 5 mg, Oral, Daily folic acid, 1 mg, Oral, Daily losartan, 25 mg, Oral, Daily metoprolol succinate XL, 75 mg, Oral, BID mometasone-formoterol, 2 puff, Inhalation, BID montelukast, 10 mg, Oral, Nightly pantoprazole, 40 mg, Oral, Nightly Or pantoprazole (ProtoNix) 40 mg in sodium chloride (PF) 0.9 % 10 mL injection, 40 mg, IntraVENous, Nightly [Held by provider] rosuvastatin, 40 mg, Oral, Daily sertraline, 100 mg, Oral, Daily sodium chloride 0.9%, 5-40 mL, IntraCATHeter, q8h spironolactone, 25 mg, Oral, Daily thiamine, 100 mg, Oral, Daily tiotropium, 2 puff, Inhalation, Daily torsemide, 40 mg, Oral, BID vancomycin, 1,500 mg, IntraVENous, q24h [6] [7] No Known Allergies Cosigned by Henny Whiting DO at 06/01/2025 4:07 PM EDT Associated attestation - Henny Whiting DO - 06/01/2025 4:07 PM EDT Attending Supervising Physician's Attestation Statement I performed an independent history and physical examination on the patient and discussed the management with Dr. Michael. I reviewed and agree with the findings and plans as documented in the above note with the following additions: Patient is a 69 year old male with PMHx significant for chronic hyponatremia, COPD, HFrEF s/p ICD placement, AFib on Eliquis, history of VTE (prior DVT and PE), history of EtOH abuse who initially presented to the ED on 05/20/25 with concern for respiratory distress and was admitted with septic shock 2/2 PNA. He briefly required intubation but was eventually transferred to the general floor on 05/24/25. The nephrology service was consulted for further recommendations regarding the patient's electrolyte derangements. Patient was seen and examined this afternoon, and he states that he feels well at present. He denies dyspnea or concerns for worsening peripheral edema. He denies concerns for nausea or significant pain. He states that he is drinking plenty of fluids (at least 1 L of water along with other drinks provided to him per his ex- throughout the day). Updated studies note serum Na overall stable at 130, serum K at 3.3, serum Cl at 89, and serum bicarbonate level at 32. Serum Osm was at 278 with urine Osm at 297 and urine Na at 62 in the setting of ongoing diuresis. Ordered potassium supplementation with KCl 40 mEq x2 doses today, and mediating hypokalemia should also help to improve hyponatremia. Patient appears fairly euvolemic on evaluation today - will trial reducing torsemide to 30 mg BID and continue to follow interval indices. We will continue to follow along with you. Please text/call/page with any questions or concerns. Dr. Karthik Li will be assuming nephrology care of this patient tomorrow. Henny Whiting, Nephrology [facility] ([facility]) Pager: [phone] Office Office Electronically Signed on 06/01/2025 at 4:04 PM Associated Order(s): INPATIENT CONSULT TO WOUND CARE PROVIDERS Images from the original note were not included. [facility] Wound Care CONSULT Note Krystina Markham AGE: 69 y.o. GENDER: male : 1955 Subjective: HISTORY of PRESENT ILLNESS HPI Krystina Markham is a 69 y.o. male who presents for a wound consult. HPI: Mr. Markham is a 69 y.o male who presented to the [facility] on 04/19/25 from home after patient was found by her ex at home minimally responsive and was having difficulty breathing. Patient was brought to [facility] via EMS and was given solumedrol/duoneb en route. Per EMS, patient seemed altered and had posturing w/ his L arm. EMS were unable to to get his L arm to relax as he was clenching his fingers w/ some tremors. Patient was intubated at [facility] and was transferred to [facility] for further evaluation and management. Wound Care consulted for skin tear on the right forearm. PAST MEDICAL HISTORY Medical History[1] PAST SURGICAL HISTORY Surgical History[2] FAMILY HISTORY Family History[3] SOCIAL HISTORY Social History[4] ALLERGIES Allergies[5] MEDICATIONS Medications Ordered Prior to Encounter[6] REVIEW OF SYSTEMS Pertinent items are noted in HPI. Objective: BP 134/89 Pulse 79 Temp 37.1 C (98.8 F) (Temporal) Resp 18 Ht 1.727 m (5' 8") Wt 77.4 kg (170 lb 10.2 oz) SpO2 91% PF 44 L/min BMI 25.95 kg/m PHYSICAL EXAM General appearance: in no apparent distress, non-toxic, in no respiratory distress and acyanotic, alert, oriented times 3, and cooperative Skin: warm and dry Pulmonary: Normal effort, no respiratory distress, no cyanosis Right Posterior Forearm: 2cm x 2cm x UTD cm: Wound bed with scab. No drainage noted. Periwound pink and fragile. 05/24/25 LABS CBC: Lab Results Component Value Date WBC 15.0 (H) 05/24/2025 HGB 12.5 (L) 05/24/2025 HGB 13.9 05/22/2025 HCT 35.2 (L) 05/24/2025 MCV 87.3 05/24/2025 PLT 143 05/24/2025 BMP: Lab Results Component Value Date NA 126 (L) 05/24/2025 K 4.0 05/24/2025 CL 98 05/24/2025 CO2 19 (L) 05/24/2025 PHOS 2.2 (L) 05/24/2025 BUN 22 05/24/2025 CREATININE 0.78 05/24/2025 PT/INR: No results found for: "PROTIME", "INR" Prealbumin: No results found for: PREALBUMIN Albumin:No components found for: LABALBU Sed Rate:No results found for: SEDRATE Micro: No components found for: BC Assessment/Plan: Nursing staff to perform dressing change: Right forearm: Skin tear - Cleanse with NS. Apply adaptic to wound bed, cover with foam dressing. Change daily and PRN Nutritional support Wound Care to follow Recommend to follow up at [facility] after hospital discharge. Any questions or concerns please secure chat "ACH wound/ostomy". Thank you for the consult! I personally obtained the singh and critical portions of the history and physical exam. I reviewed the labs, imaging studies, and electronic medical record. I reviewed the chart documentation and discussed the patient with treatment team members. I have edited the note to reflect my clinical findings and my assessment and plan. Please note, the time of this note does not reflect the time I saw this patient today, but the time of this documentaton. Portions of this note including HPI, ROS, impression/plan, and examination may have been copied forward from admission to today as to provide important historical information essential in contributing to medical decision making. Documentation has been reviewed and edited as necessary to support clinical decision making for today's visit and to reflect my own independent evaluation of this patient. Decision making for today's visit and to reflect my own independent evaluation of this patient. [1] Past Medical History: Diagnosis Date Alcohol consumption heavy 09/10/2015 stopped 3w ago Asthma Atrial fibrillation (HCC) CHF (congestive heart failure) ([facility]) 01/31/2016 COPD (chronic obstructive pulmonary disease) ([facility]) 09/10/2015 Cor, pulmonale, acute (CMS/HCC) (HCC) Deep venous thrombosis (HCC) 02/2016 Depression Hx of blood clots Obesity 09/10/2015 DELORES (obstructive sleep apnea) Pulmonary embolus ([facility]) 6 16 Raynaud phenomenon 09/10/2015 Smoker 09/10/2015 [2] Past Surgical History: Procedure Laterality Date ABDOMINAL SURGERY BRONCHOSCOPY 02/25/2020 BRONCHOSCOPY (HISTORICAL) 02/25/2020 COLONOSCOPY 10/27/[address] CHEST ANGIOGRAM W AND/OR WO IV CONTRAST 07/12/2022 CT CHEST ANGIOGRAM W AND/OR WO IV CONTRAST 07/12/2022 [facility] CT IMAGING FINGER AMPUTATION Left HERNIA REPAIR NOSE SURGERY PACEMAKER (HISTORICAL) [3] Family History Problem Relation Name Age of Onset Asthma Father Congenital Anomaly Father Cancer Father Asthma Sister Heart disease Mother Heart disease Brother Pacemaker Mother Congenital Anomaly Sister Cancer Mother Diabetes Mother [4] Social History Tobacco Use Smoking status: Former Current packs/day: 0.25 Average packs/day: 0.3 packs/day for 53.0 years (13.2 ttl pk-yrs) Types: Cigarettes Start date: 1972 Smokeless tobacco: Never Tobacco comments: 8 cig daily Substance Use Topics Alcohol use: Yes Alcohol/week: 7.0 standard drinks of alcohol Types: 7 Cans of beer per week Comment: once beer daily Drug use: Never [5] No Known Allergies [6] No current facility-administered medications on file prior to encounter. Current Outpatient Medications on File Prior to Encounter Medication Sig Dispense Refill albuterol (2.5 MG/3ML) 0.083% nebulizer solution Take 3 mL (2.5 mg) by nebulization as needed for wheezing or shortness of breath. 75 mL 3 apixaban (Eliquis) 5 MG tablet Take 1 tablet (5 mg) by mouth 2 times daily. 60 tablet 11 dapagliflozin (Farxiga) 5 MG tablet Take 1 tablet (5 mg) by mouth daily. 30 tablet 11 Spwruaoxtsd-Mywxbnwui-Uwpyqd (Trelegy Ellipta) 100-62.5-25 MCG/ACT aerosol powder Inhale 1 puff daily. (Patient not taking: Reported on 10/14/2024) 2 each 0 folic acid (Folvite) 1 MG tablet TAKE 1 TABLET (1,000 MCG) BY MOUTH EVERY MORNING. 90 tablet 3 losartan (Cozaar) 25 MG tablet TAKE 1 TABLET BY MOUTH EVERY DAY 90 tablet 3 metoprolol succinate XL (Toprol-XL) 100 MG 24 hr tablet TAKE 1 TABLET BY MOUTH 2 TIMES DAILY. DO NOT CRUSH OR CHEW. 180 tablet 0 montelukast (Singulair) 10 MG tablet TAKE 1 TABLET BY MOUTH EVERY DAY NIGHTLY 90 tablet 0 rosuvastatin (Crestor) 40 MG tablet TAKE 1 TABLET BY MOUTH EVERY DAY 90 tablet 1 sertraline (Zoloft) 100 MG tablet TAKE 1 TABLET BY MOUTH EVERY DAY 90 tablet 1 spironolactone (Aldactone) 25 MG tablet TAKE 1 TABLET BY MOUTH EVERY DAY 90 tablet 1 torsemide (Demadex) 20 MG tablet TAKE 2 TABLETS (40 MG) BY MOUTH 2 TIMES DAILY. 360 tablet 1 Cosigned by Jose M Ferrell DO at 05/25/2025 12:01 PM EDT Associated Order(s): IP CONSULT TO INFECTIOUS DISEASES Images from the original note were not included. [facility] - Infectious Diseases Attending Consult Note Reason for Consult: MRSA Sepsis, Pneumonia History of Present Illness: 69 M with COPD on NC, NICM s/p ICD, A Fib, DVT/PE, EtOH abuse, was found down, minimally responsive in respiratory distress by his ex- , EMS took patient to [facility] initially, febrile, hyponatremic and concern for septic shock, as well as LLL PNA, and EtOH withdrawals possible seizures. Transferred to [facility], initially intubated, but extubated and now only admits to cough, and feels well otherwise. He is a poor historian and has hx of noncompliance with meds too. Denies recent hospitalizations or skin infections. Infectious workup notable for MRSA bacteremia, and U Ags+ S pneumoniae. Resp culture so far pending, PCR negative. nKDA Past Medical History: Medical History[1] Past Surgical History: Surgical History[2] Current Medications: Current Medications[3] Allergies: Allergies[4] Social History: Social History Socioeconomic History Marital status: Spouse name: Not on file Number of children: Not on file Years of education: Not on file Highest education level: Not on file Occupational History Not on file Tobacco Use Smoking status: Former Current packs/day: 0.25 Average packs/day: 0.3 packs/day for 53.0 years (13.2 ttl pk-yrs) Types: Cigarettes Start date: 1972 Smokeless tobacco: Never Tobacco comments: 8 cig daily Substance and Sexual Activity Alcohol use: Yes Alcohol/week: 7.0 standard drinks of alcohol Types: 7 Cans of beer per week Comment: once beer daily Drug use: Never Sexual activity: Not on file Other Topics Concern Not on file Social History Narrative Not on file Social Drivers of Health Financial Resource Strain: Low Risk (09/11/2024) Overall Financial Resource Strain (CARDIA) Difficulty of Paying Living Expenses: Not very hard Food Insecurity: No Food Insecurity (09/11/2024) Hunger Vital Sign Worried About Running Out of Food in the Last Year: Never true Ran Out of Food in the Last Year: Never true Transportation Needs: No Transportation Needs (11/02/2024) PRAPARE - Transportation Lack of Transportation (Medical): No Lack of Transportation (Non-Medical): No Physical Activity: Inactive (09/11/2024) Exercise Vital Sign Days of Exercise per Week: 0 days Minutes of Exercise per Session: 0 min Stress: No Stress Concern Present (09/11/2024) Citizen Of [place] of Occupational Health - Occupational Stress Questionnaire Feeling of Stress : Not at all Social Connections: Socially Isolated (09/11/2024) Social Connection and Isolation Panel [NHANES] Frequency of Communication with Friends and Family: Never Frequency of Social Gatherings with Friends and Family: Never Attends Zoroastrian Services: Never Active Member of Clubs or Organizations: No Attends Club or Organization Meetings: Never Marital Status: Intimate Partner Violence: Patient Unable To Answer (05/21/2025) Humiliation, Afraid, Rape, and Kick questionnaire Fear of Current or Ex-Partner: Patient unable to answer Emotionally Abused: Patient unable to answer Physically Abused: Patient unable to answer Sexually Abused: Patient unable to answer Housing Stability: Low Risk (11/02/2024) Housing Stability Vital Sign Unable to Pay for Housing in the Last Year: No Number of Times Moved in the Last Year: 0 Homeless in the Last Year: No Last EtOH 1 week prior, usually 6pk beer daily; denied passing out or N/V. No IVDU Lives alone Family History: Family History[5] Review of Systems: Review of Systems Constitutional: Positive for fever. HENT: Negative. Respiratory: Positive for cough and shortness of breath. Cardiovascular: Negative for chest pain and leg swelling. Gastrointestinal: Negative. Genitourinary: Negative for difficulty urinating. Musculoskeletal: Positive for myalgias. Negative for arthralgias and back pain. Skin: Negative for rash and wound. Neurological: Negative for weakness and headaches. Psychiatric/Behavioral: Negative. Vitals: Patient Vitals for the past 24 hrs: BP Temp Temp src Pulse Resp SpO2 Weight 05/22/25 1000 108/63 -- -- 67 18 94 % -- 05/22/25 0900 115/63 -- -- 63 18 95 % -- 05/22/25 0800 125/67 -- -- 72 20 92 % -- 05/22/25 0739 -- 36.1 C (96.9 F) Temporal 64 19 99 % -- 05/22/25 0700 130/79 -- -- 60 19 97 % -- 05/22/25 0628 -- -- -- 60 17 96 % -- 05/22/25 06 130/78 -- -- 60 20 97 % -- 05/22/25 0528 -- -- -- 62 18 99 % -- 05/22/25 0500 137/88 -- -- 60 18 98 % 77.4 kg (170 lb 10.2 oz) 05/22/25 0400 134/79 36.1 C (96.9 F) Temporal 60 19 96 % -- 05/22/25 0332 -- -- -- 60 18 100 % -- 05/22/25 0300 134/82 -- -- 63 18 99 % -- 05/22/25 0200 133/77 -- -- 60 18 100 % -- 05/22/25 0100 135/78 -- -- 60 18 98 % -- 05/22/25 0000 125/78 36.1 C (97 F) Temporal 61 18 98 % -- 05/21/253 -- -- -- 60 18 97 % -- 05/21/25 2300 126/77 -- -- 60 18 97 % -- 05/21/25 2200 123/79 -- -- 60 18 98 % -- 05/21/25 2100 117/71 -- -- 60 18 97 % -- 05/21/251999 119/77 -- -- 60 18 99 % -- 05/21/251951 -- -- -- 60 17 98 % -- 05/21/251949 -- -- -- 60 18 97 % -- 05/21/25 194 117/70 36.1 C (97 F) Temporal 60 18 99 % -- 05/21/25 1900 115/66 -- -- 60 18 99 % -- 05/21/25 1800 104/64 -- -- 60 22 98 % -- 05/21/25 1700 92/62 -- -- 60 18 96 % -- 05/21/25 1600 93/66 36.2 C (97.1 F) Temporal 60 18 96 % -- 05/21/25 1550 -- -- -- 60 18 96 % -- 05/21/25 1500 (!) 75/56 -- -- 61 18 95 % -- 05/21/25 1400 (!) 87/60 -- -- 60 18 99 % -- 05/21/25 1300 90/60 -- -- 60 18 99 % -- 05/21/25 1211 -- -- -- 60 16 99 % -- 05/21/25 1210 -- 36.4 C (97.5 F) Temporal -- -- -- -- 05/21/25 1200 94/60 -- -- 60 18 99 % -- Physical Exam: Physical Exam Vitals reviewed. Constitutional: General: He is not in acute distress. Appearance: He is ill-appearing. He is not toxic-appearing. HENT: Mouth/Throat: Mouth: Mucous membranes are moist. Pharynx: Oropharynx is clear. Eyes: General: No scleral icterus. Extraocular Movements: Extraocular movements intact. Cardiovascular: Rate and Rhythm: Rhythm irregular. Pulses: Normal pulses. Heart sounds: Normal heart sounds. No murmur heard. Comments: ICD pocket benign, nontender Pulmonary: Effort: Pulmonary effort is normal. No respiratory distress. Breath sounds: Normal breath sounds. No wheezing, rhonchi or rales. Abdominal: General: There is no distension. Palpations: Abdomen is soft. Tenderness: There is no abdominal tenderness. Musculoskeletal: General: Signs of injury (L finger amputations) present. No swelling (no joint effusins, no spinal tenderness). Cervical back: Normal range of motion and neck supple. Right lower leg: No edema. Left lower leg: No edema. Lymphadenopathy: Cervical: No cervical adenopathy. Skin: General: Skin is warm. Coloration: Skin is not jaundiced. Findings: No erythema or rash (no stigmata of IE). Neurological: General: No focal deficit present. Mental Status: He is oriented to person, place, and time. Motor: No weakness. Coordination: Coordination normal. Psychiatric: Thought Content: Thought content normal. Labs: Recent Labs 05/20/25 2220 05/21/25 0148 05/21/25 2352 05/22/25 0358 05/22/25 0834 NA 121* < > 129* 127* 130* K 3.6 < > 3.8 5.2* 3.7 CL 78* < > 93* 95* 95* CO2 25 < > 24 19* 22* BUN 22 < > 25* 24* 26* CREATININE 1.48* < > 1.18 1.20 1.20 GLUCOSE 140* < > 145* 133* 151* CALCIUM 9.4 < > 9.3 9.0 9.7 PROT 7.7 -- -- -- -- BILITOT 1.2* -- -- -- -- ALKPHOS 142 -- -- -- -- AST 27 -- -- -- -- ALT 7 -- -- -- -- PROCAL 0.51* -- -- -- -- < > = values in this interval not displayed. Recent Labs 05/20/25221905/21/25 0310 05/21/25 0323 05/22/25 0326 05/22/25 0358 WBC 12.7* 30.9* -- -- 23.3* HGB 17.0 16.4 15.7 14.9 15.5 13.9 13.4 HCT 43.6 42.0 -- -- 38.7* PLT 171 161 -- -- 139* LYMPHOPCT 0* 1* -- -- 1.8* MONOPCT 0* 3* -- -- 4.6* BASOPCT -- -- -- -- 0.2 NEUTROABS -- -- -- -- 21.6* Micro: No results for input(s): "COVID19" in the last 72 hours. BC: MRSA 05/21 Resp cx: pending( PCR: neg) 4 plex vial PCR: neg 05/20 Uags: S pneumoniae+ Resppath PCR: neg Lines: Radiography/Echo/Other: reviewed 05/20 CT Chest: Impression: Infiltrate in the left posterior lung base suspicious for pneumonia. Again seen are compression fractures of T6-T8. Interval development of a compression fracture of T9. 05/20 CT Head: mpression: 1. No acute intracranial findings. 2. Probable chronic ischemic and atrophic changes. Antimicrobials,Start/End Dates: Vancomycin Cefepime to Ceftriazone Impression: 69 M admitted with change in MS, respiratoryu failure: MRSA Septic shock -resolved extubated, ff pressors,, on Vancomycin already. Follow up BC pending. LLL PNA from above likely, unclear if +Uag also clinically significant, already covered as above with Ceftriaxone. Back to baseline. +AICD, may need device extraction even if TTE unremarkable, no obvious lead vegetation- Cards following Hyponatremia- multifactorial from EtoH likely, improving VIMAL- resolved Concern for EtOH withdrawal-stable now Encephalopathy- appears resolving H/o noncompliance Overall acutely ill still but improving. Plan: As above, anticipate shrt course Ceftriaxne- 5 days total. Await Cards plans for ICD removal. Case d/w CU Team. Based on diagnoses and management, combination of acute and chronic problems, exacerbations and/or acuity, this visit should be considered to be of high complexity. Total time of 60 minutes on this day of encounter spent on, but not limited to review of tests, medical records , counseling and education (patient, family member, caregiver), ordering medications, tests, and procedures, and communication with other health care professions. [1] Past Medical History: Diagnosis Date Alcohol consumption heavy 09/10/2015 stopped 3w ago Asthma Atrial fibrillation (HCC) CHF (congestive heart failure) ([facility]) 01/31/2016 COPD (chronic obstructive pulmonary disease) ([facility]) 09/10/2015 Cor, pulmonale, acute (CMS/HCC) (HCC) Deep venous thrombosis (HCC) 02/2016 Depression Hx of blood clots Obesity 09/10/2015 DELORES (obstructive sleep apnea) Pulmonary embolus ([facility]) 6 16 Raynaud phenomenon 09/10/2015 Smoker 09/10/2015 [2] Past Surgical History: Procedure Laterality Date ABDOMINAL SURGERY BRONCHOSCOPY 02/25/2020 BRONCHOSCOPY (HISTORICAL) 02/25/2020 COLONOSCOPY 10/27/[address] CHEST ANGIOGRAM W AND/OR WO IV CONTRAST 07/12/2022 CT CHEST ANGIOGRAM W AND/OR WO IV CONTRAST 07/12/2022 [facility] CT IMAGING FINGER AMPUTATION Left HERNIA REPAIR NOSE SURGERY PACEMAKER (HISTORICAL) [3] Current Facility-Administered Medications Medication Dose Route Frequency Provider Last Rate Last Admin apixaban (Eliquis) tablet 5 mg 5 mg Per NG/OG Tube BID Jayna Neopaney, DO 5 mg at 05/22/25 0737 cefTRIAXone (Rocephin) 1,000 mg in sodium chloride 0.9 % 50 mL IVPB Mini-Bag Plus 1,000 mg IntraVENous q24h Reeya Jerry, DO 100 mL/hr at 05/22/25 1124 1,000 mg at 05/22/25 1124 chlorhexidine (Hibiclens) 4 % solution Topical Daily Jayna Neopaney, DO [Held by provider] dapagliflozin (Farxiga) tablet 5 mg 5 mg Oral Daily Jayna Neopaney, DO folic acid 1 mg in dextrose 5 % 50 mL IVPB 1 mg IntraVENous Daily Jayna Neopaney, DO Stopped at 05/21/25 0904 ipratropium-albuterol (Duo-Neb) 0.5-2.5 mg/3 mL nebulizer solution 3 mL 3 mL Nebulization TID Jayna Neopaney, DO 3 mL at 05/22/25 0730 [Held by provider] losartan (Cozaar) tablet 25 mg 25 mg Oral Daily Jayna Neopaney, DO [Held by provider] metoprolol succinate XL (Toprol-XL) 24 hr tablet 100 mg 100 mg Oral Daily Jayna Neopaney, DO montelukast (Singulair) tablet 10 mg 10 mg Oral Nightly Jayna Neopaney, DO 10 mg at 05/21/252007 mupirocin (Bactroban) 2 % ointment 1 Application 1 Application Nasal BID Jayna Neopaney, DO 1 Application at 05/22/25 0834 ondansetron ODT (Zofran-ODT) disintegrating tablet 4 mg 4 mg Oral q8h PRN Jayna Neopaney, DO Or ondansetron (Zofran) injection 4 mg 4 mg IntraVENous q6h PRN Jayna Neopaney, DO pantoprazole (ProtoNix) 40 mg in sodium chloride (PF) 0.9 % 10 mL injection 40 mg IntraVENous Daily Jayna Neopaney, DO 40 mg at 05/22/25 0834 [START ON 05/23/2025] predniSONE (Deltasone) tablet 40 mg 40 mg Oral Daily Reeya Jerry, DO rosuvastatin (Crestor) tablet 40 mg 40 mg Oral Daily Jayna Neopaney, DO 40 mg at 05/21/25 0840 sertraline (Zoloft) tablet 100 mg 100 mg Per NG/OG Tube Daily Ramy Squires, DO 100 mg at 05/22/25 0737 sodium chloride 0.9% (NS) flush 5-40 mL 5-40 mL IntraCATHeter q8h Jayna Neopaney, DO 5 mL at 05/22/25 0149 sodium chloride 0.9% (NS) flush 5-40 mL 5-40 mL IntraVENous PRN Jayna Neopaney, DO [Held by provider] spironolactone (Aldactone) tablet 25 mg 25 mg Oral Daily Jayna Neopaney, DO thiamine (Vitamin B1) injection 100 mg 100 mg IntraVENous Daily Jayna Neopaney, DO 100 mg at 05/22/25 0834 [Held by provider] torsemide (Demadex) tablet 40 mg 40 mg Oral BID Jayna Neopaney, DO vancomycin IVPB 1500 mg in 250 mL NS (premix) 1,500 mg IntraVENous q24h Leelee Iyer, Stopped at 05/21/25 2306 [4] No Known Allergies [5] Family History Problem Relation Name Age of Onset Asthma Father Congenital Anomaly Father Cancer Father Asthma Sister Heart disease Mother Heart disease Brother Pacemaker Mother Congenital Anomaly Sister Cancer Mother Diabetes Mother Associated Order(s): IP CONSULT TO CARDIOLOGY [facility] [place] [facility] [place]Electrophysiology Consult Note Reason for Consult/Chief Complaint: Staph bacteremia Referring provider: Marita Established analytics director: Ric Foote History of Present Illness: Krystina Markham is a 69 y.o. male was admitted to [facility] May 21 after being found at home in respiratory distress and minimally responsive. He was felt to be in septic shock and had evidence of a left lower lobe pneumonia. He was intubated. He has had 2 consecutive blood cultures positive for staph aureus methicillin resistant. He has been on intravenous antibiotics and now is extubated with improvement in his respiratory condition. He did have a echocardiogram on admission that showed ejection fraction of 50 % with no significant valvular heart disease and no vegetation visualized. He has not received any ICD discharges. His current telemetry shows atrial fibrillation which is chronic with intermittent biventricular pacing. He has a history of chronic systolic heart failure. 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 Almaraz and last seen 09/19/2022. Since his last office visit he has had multiple hospitalizations for COPD exacerbation, pneumonia and heart failure. He is noncompliant with medications and follow-up at times. Last echocardiogram done November 2023 with ejection fraction of 21% with global hypokinesis, 3+ tricuspid regurgitation with RVSP 47 mmHg, severe left atrial dilation and 1-2+ mitral regurgitation. His most recent hospitalization was September 2024 after he stopped taking his heart failure medications and was admitted for acute decompensated heart failure. He was noted to have hyponatremia. Cardiology was not consulted during that admission. He was diuresed and placed back on GDMT. He presents today for continued follow-up. Assessment/Plan HF NYHA Class [] I [] II [] III [] IV []Unable to assess The patient has staph bacteremia and a 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 in place. He will need device extraction regardless of visible vegetations on the leads given the organism. We will arrange an extraction procedure and a MERLIN during the time of the extraction next week. We will follow the patient while in the hospital. Medications: Scheduled Meds[1] Infusion Medications: Continuous Meds[2] Physical Examination: Vitals: 05/22/25 0628 05/22/25 0700 05/22/25 0739 05/22/25 0800 BP: 130/79 125/67 BP Location: Patient Position: Pulse: 60 60 64 72 Resp: Temp: 36.1 C (96.9 F) TempSrc: Temporal SpO2: 96% 97% 99% 92% Weight: Height: PF: Intake/Output Summary (Last 24 hours) at 05/22/2025 1024 Last data filed at 05/22/2025 0740 Gross per 24 hour Intake 2485 ml Output 1750 ml Net 735 ml Wt Readings from Last 3 Encounters: 05/22/25 170 lb 10.2 oz (77.4 kg) 11/02/24 194 lb 0.1 oz (88 kg) 10/14/24 188 lb 14.4 oz (85.7 kg) Physical Exam Constitutional: General: He is not in acute distress. Appearance: He is normal weight. He is ill-appearing. HENT: Head: Normocephalic and atraumatic. Eyes: General: No scleral icterus. Neck: Vascular: No carotid bruit. Cardiovascular: Rate and Rhythm: Normal rate. Rhythm irregular. Heart sounds: No murmur heard. No gallop. Pulmonary: Effort: Pulmonary effort is normal. Breath sounds: Wheezing present. Abdominal: General: Abdomen is flat. Palpations: Abdomen is soft. Tenderness: There is no abdominal tenderness. Musculoskeletal: Right lower leg: No edema. Left lower leg: No edema. Skin: General: Skin is warm and dry. Findings: No lesion or rash. Neurological: Mental Status: He is alert and oriented to person, place, and time. Psychiatric: Mood and Affect: Mood normal. Thought Content: Thought content normal. oratory Tests: TROPONIN I, CONVENTIONAL SENSITIVITY CK Date Value Ref Range Status 05/21/2025 86 30 - 185 U/L Final 11/01/2024 150 30 - 185 U/L Final 02/14/2024 110 30 - 170 U/L Final 12/30/2022 223 (H) 30 - 170 U/L Final 12/29/2022 448 (H) 30 - 170 U/L Final CKMB Date Value Ref Range Status 02/14/2024 4.1 0.0 - 4.4 ng/mL Final TROPONIN I Date Value Ref Range Status 02/14/2024 0.025 <0.034 ng/mL Final 02/13/2024 0.026 <0.034 ng/mL Final 02/13/2024 0.023 <0.034 ng/mL Final 11/12/2023 0.016 <0.034 ng/mL Final 11/11/2023 0.017 <0.034 ng/mL Final TROPONIN I, HIGH SENSITIVITY Troponin HS Serial Baseline Date Value Ref Range Status 05/20/2025 61 (H) <=35 ng/L Final Comment: In individuals presenting with symptoms > 2h, a baseline troponin <= 5 ng/L suggests acute cardiac injury is unlikely and further serial testing is generally not indicated. 11/01/2024 16 <=35 ng/L Final Comment: In individuals presenting with symptoms > 2h, a baseline troponin <= 5 ng/L suggests acute cardiac injury is unlikely and further serial testing is generally not indicated. 09/10/2024 37 (H) <=35 ng/L Final 08/19/2024 37 (H) <=35 ng/L Final 2h Troponin HS (Serial 2nd Troponin) Date Value Ref Range Status 05/21/2025 92 (H) <=35 ng/L Final Comment: 2h troponin (2nd troponin) samples collected between 1h 40 min and 2h and 20 min of the baseline collection time can be utilized to interpret delta troponins as per [employer] algorithms. Samples collected outside this timeframe need to be interpreted clinically. Rising or falling troponin delta greater than 15 ng/L as compared to baseline value is significant for acute cardiac injury. 11/01/2024 20 <=35 ng/L Final Comment: Rising or falling troponin delta between 2 - 15 ng/L as compared to baseline value requires a 3rd serial troponin 09/10/2024 38 (H) <=35 ng/L Final 08/19/2024 35 <=35 ng/L Final Absolute Delta (2nd - Baseline Troponin) Date Value Ref Range Status 09/10/2024 1 <=2 ng/L Final Comment: This specimen was collected more than 20 minutes away from the 2 hour target. Use of this delta with the 2 hour troponin algorithm is not recommended, individualized clinical assessment is needed. A troponin delta greater than or equal to 15 ng/L is significant for acute cardiac injury. Values less than 15 but greater than 2 are an intermediate change requiring a 3rd serial troponin to be drawn. Values less than or equal to 2 indicate acute cardiac injury is not likely, see external algorithms for further clinical guidance. 08/19/2024 -2 <=2 ng/L Final Comment: A troponin delta greater than or equal to 15 ng/L is significant for acute cardiac injury. Values less than 15 but greater than 2 are an intermediate change requiring a 3rd serial troponin to be drawn. Values less than or equal to 2 indicate acute cardiac injury is not likely, see external algorithms for further clinical guidance. 4h Troponin HS (Serial 3rd Troponin) Date Value Ref Range Status 11/01/2024 24 <=35 ng/L Final Comment: Rising or falling troponin delta between 2 - 15 ng/L as compared to 2h troponin value requires further evaluation. No results found for: "TROPDELTSEC" Recent Labs 05/21/25 1614 09/19/25 200605/21/25235105/22/2535705/22/25 0834 NA 127* 128* 129* 127* 130* K 3.7 3.8 3.8 5.2* 3.7 CL 95* 92* 93* 95* 95* CO2 24 24 24 19* 22* BUN 24* 24* 25* 24* 26* CREATININE 1.32* 1.25 1.18 1.20 1.20 EGFR 58.8* 62.7 67.2 65.9 65.9 Recent Labs 05/20/25221905/21/2530905/21/2532205/22/2532505/22/25357 WBC 12.7* 30.9* -- -- 23.3* HGB 17.0 16.4 15.7 14.9 15.5 13.9 13.4 HCT 43.6 42.0 -- -- 38.7* MCV 85.0 85.9 -- -- 88.0 PLT 171 161 -- -- 139* Lab Results Component Value Date HGBA1C 5.9 (H) 02/14/2024 Lab Results Component Value Date TSH 0.57 05/20/2025 Lab Results Component Value Date CHOL 99 02/14/2024 CHOL 155 07/16/2022 Lab Results Component Value Date HDL 53 02/14/2024 HDL 90 (H) 07/16/2022 Lab Results Component Value Date LDLCALC 33 02/14/2024 LDLCALC 54 07/16/2022 Lab Results Component Value Date TRIG 76 05/21/2025 TRIG 64 02/14/2024 TRIG 53 07/16/2022 No results found for: "CHOLHDL" No results found for: LDLCHOLESTER Recent Labs 05/20/25 2220 BNP 7,094* No results for input(s): "INR" in the last 72 hours. Results from last 7 days Lab Units 05/20/25 2220 AST U/L 27 ALT U/L 7 No results found for: "IRON", "TIBC", "FERRITIN" Radiology: CXR: Narrative & Impression Patient Name: KRYSTINA MARKHAM : 1955 Exam Date/Time: 05/22/2025 05:31 Procedure: XR CHEST 1 VIEW Ordering Provider: LANGE CHARLES Reason For Exam: Respiratory failure, intubated PORTABLE CHEST X-RAY CLINICAL INDICATION: Respiratory failure A portable frontal view of the chest was obtained. COMPARISON: 05/21/2025 FINDINGS: Heart size is within normal limits. Endotracheal tube, feeding tube, right jugular catheter, and left-sided pacemaker device are unchanged. Chronic interstitial changes are again noted within the lungs. Left retrocardiac atelectasis or infiltrate and small left pleural effusion appears similar. No new areas of consolidation are seen. There are degenerative changes of the spine and the bilateral shoulders. Old deformity of the left humeral head is not fully imaged. IMPRESSION: No significant change when compared with the previous study. Report Dictated on Electronically Signed By: Charlie Carter MD Electronically Signed Date/Time: 05/22/2025 9:[address] chest abdomen pelvis without contrast Status: Final result Link to Procedure Log Procedure Log Orders Requiring a Screening Form Procedure Order Status Order ID Accession Number Form Status CT chest abdomen pelvis without contrast Completed [id number] Created PACS Images Show images for CT chest abdomen pelvis without contrast Study Result Narrative & Impression Patient Name: KRYST[facility]KHAM [facility] 1955 [id number] Exam Date/Time: 05/20/2025 22:55 Procedure: CT CHEST ABDOMEN PELVIS WO CONTRAST Ordering Provider: JOSEPH VISHNU Reason For Exam: sepsis; ams CT chest without contrast HISTORY: Sepsis TECHNIQUE: 3 mm axial images from the lung apices to the adrenal glands without intravenous contrast Dose reduction was employed with automated exposure control. Infiltrate in the left posterior lung base suspicious for pneumonia. Emphysematous changes in the lungs. Again seen are compression fractures of T6-T8. Interval development of a compression fracture of T9. No lymphadenopathy. Coronary artery calcifications are present. COMPARISON: 07/12/2022 CT abdomen and pelvis without contrast Technique: 3 mm axial images from the lung bases to just below the pubic symphysis without intravenous contrast The liver, gallbladder, spleen, pancreas, adrenals and kidneys are normal. No bowel inflammation or obstruction. No free fluid. The bladder is unremarkable. Densely calcified aortoiliac atherosclerosis. IMPRESSION: Infiltrate in the left posterior lung base suspicious for pneumonia. Again seen are compression fractures of T6-T8. Interval development of a compression fracture of T9. Cardiac Tests Personally Reviewed: Last EKG 05/20/25 ECG 12-LEAD 05/22/2025 8:13 AM (Final) Impression ATRIAL FIBRILLATION Ventricular-paced complexes Electronically Signed On 05-22-2025 08:13:20 EDT by Alek Gordon Signed by: Alek Gordon MD on 05/22/2025 8:13 AM Telemetry findings: afib, ventricular demand pacing. LBBB Reports reviewed: Last Echo 05/20/25 TRANSTHORACIC ECHOCARDIOGRAM (TTE) COMPLETE (CONTRAST/BUBBLE/3D PRN) 05/21/2025 11:34 AM (Final) Interpretation Summary Left Ventricle: Left ventricle is mildly dilated. Mildly increased wall thickness. Low normal left ventricular systolic function. EF by 2D Simpsons Biplane is 50%. Global longitudinal strain is reduced with a value of -13.3%. See diagram for wall motion findings. Indeterminate diastolic function due to atrial fibrillation. Right Ventricle: Right ventricle is mildly dilated. ICD lead present in the right ventricle. Normal systolic function. Left Atrium: Left atrium size is severely increased (LA volume index >48 mL/m2).LA Vol Index is 57 ml/m2. Right Atrium: Right atrium is severely dilated. No significant valvular abnormalities. In comparison to the previous study on 11/12/2023, LVEF has improved. Signed by: Charlie Robbins MD on 05/21/2025 11:34 AM Karthik Mendoza MD DATE of SERVICE: 05/22/2025 [1] apixaban, 5 mg, Per NG/OG Tube, BID cefTRIAXone, 1,000 mg, IntraVENous, q24h chlorhexidine, , Topical, Daily [Held by provider] dapagliflozin, 5 mg, Oral, Daily folic acid 1 mg in dextrose 5 % 50 mL IVPB, 1 mg, IntraVENous, Daily Hydrocortisone Sod Suc (PF), 100 mg, IntraVENous, q12h ipratropium-albuterol, 3 mL, Nebulization, TID [Held by provider] losartan, 25 mg, Oral, Daily [Held by provider] metoprolol succinate XL, 100 mg, Oral, Daily montelukast, 10 mg, Oral, Nightly mupirocin, 1 Application, Nasal, BID pantoprazole (ProtoNix) 40 mg in sodium chloride (PF) 0.9 % 10 mL injection, 40 mg, IntraVENous, Daily rosuvastatin, 40 mg, Oral, Daily sertraline, 100 mg, Per NG/OG Tube, Daily sodium chloride 0.9%, 5-40 mL, IntraCATHeter, q8h [Held by provider] spironolactone, 25 mg, Oral, Daily thiamine, 100 mg, IntraVENous, Daily [Held by provider] torsemide, 40 mg, Oral, BID vancomycin, 1,500 mg, IntraVENous, q24h [2] dexmedeTOMIDine, 0.1-1.5 mcg/kg/hr, Last Rate: Stopped (05/22/25 0500) norepinephrine, 1-100 mcg/min, Last Rate: Stopped (05/21/25 0905) propofol, 5-50 mcg/kg/min, Last Rate: Stopped (05/21/25 1552) INITIAL CONSULT NOTE. NEUROCRITICAL CARE Patient Name: Krystina Markham Patient : 1955 Acct: [id number] Date of Admission: 05/20/2025 Room[facility]Bed: [facility] A PCP: Toi Davis MD History of Present Ilness: 69 y.o. is right handed male with the chief Complaint of: respiratory distress Initially presented to [facility] via EMS after ex- found him minimally responsive at home with difficulty breathing. Received duo neb/solumedrol treatment prior to arrival in the ED and was reported by EMS to be posturing with the left arm, clenching his fingers and tremulous. GCS reported to be 8-9. He was treated with thiamine and phenobarb due to suspicion for EtOH withdrawal and also received Keppra. Patient was initially on NIV at [place], then intubated and met severe sepsis criterai with a temp of 102.2, WBC of 12.7, lactic acid of 3.3 and imaging revealed a left lower lobe pneumonia. Labs were remarkable for Na of 121, Cr. 1.48 (baseline 0.8), BNP 7000, and troponin of 61. CT C/A/P demonstrated infiltrate in the left posterior lung base suspicious for PNA, CTH w/o acute intracranial findings, CXR demonstrated pulmonary vascular congestion, patient was initiated on cefepime and vancomycin, ordered 1L NS at [facility] and transferred to [facility] for further evaluation and management. Neurology was consulted for concern for seizure-like activity. Past Medical History: COPD, HFrEF (EF 21% 11/2023) w/ ICD, Afib on Eliquis Home Medications: Prior to Admission medications Medication Sig Start Date End Date Taking? Authorizing Provider albuterol (2.5 MG/3ML) 0.083% nebulizer solution Take 3 mL (2.5 mg) by nebulization as needed for wheezing or shortness of breath. 09/28/24 Olya Nunes MD apixaban (Eliquis) 5 MG tablet Take 1 tablet (5 mg) by mouth 2 times daily. 09/16/24 Toi Davis MD dapagliflozin (Farxiga) 5 MG tablet Take 1 tablet (5 mg) by mouth daily. 09/17/24 09/17/25 Toi Davis MD Gurrhvwnfbx-Xdzngrubi-Cdvwij (Trelegy Ellipta) 100-62.5-25 MCG/ACT aerosol powder Inhale 1 puff daily. Patient not taking: Reported on 10/14/2024 04/15/24 Bryan Tracey MD folic acid (Folvite) 1 MG tablet TAKE 1 TABLET (1,000 MCG) BY MOUTH EVERY MORNING. 03/15/25 Toi Davis MD losartan (Cozaar) 25 MG tablet TAKE 1 TABLET BY MOUTH EVERY DAY 03/15/25 Toi Davis MD metoprolol succinate XL (Toprol-XL) 100 MG 24 hr tablet TAKE 1 TABLET BY MOUTH 2 TIMES DAILY. DO NOT CRUSH OR CHEW. 03/16/25 Toi Davis MD montelukast (Singulair) 10 MG tablet TAKE 1 TABLET BY MOUTH EVERY DAY NIGHTLY 03/18/25 Toi Davis MD rosuvastatin (Crestor) 40 MG tablet TAKE 1 TABLET BY MOUTH EVERY DAY 05/17/25 Toi Davis MD sertraline (Zoloft) 100 MG tablet TAKE 1 TABLET BY MOUTH EVERY DAY 01/12/25 Pedro Subramanian MD spironolactone (Aldactone) 25 MG tablet TAKE 1 TABLET BY MOUTH EVERY DAY 05/17/25 Toi Davis MD torsemide (Demadex) 20 MG tablet TAKE 2 TABLETS (40 MG) BY MOUTH 2 TIMES DAILY. 01/06/25 Pedro Subramanian MD rosuvastatin (Crestor) 40 MG tablet Take 1 tablet (40 mg) by mouth daily. 09/16/24 05/17/25 Toi Davis MD spironolactone (Aldactone) 25 MG tablet Take 1 tablet (25 mg) by mouth daily. 09/16/24 05/17/25 Toi Davis MD Current Hospital Medications: Current Medications[1] Continuous Infusions: Continuous Meds[2] Allergies: Patient has no known allergies. Social History: TOBACCO: reports that he has quit smoking. His smoking use included cigarettes. He started smoking about 53 years ago. He has a 13.2 pack-year smoking history. He has never used smokeless tobacco. ETOH: reports current alcohol use of about 7.0 standard drinks of alcohol per week. RECREATIONAL DRUG USE: Social History Substance and Sexual Activity Drug Use Never ROS:Unable to obtain ROS due to patientintubated"." Unable to obtain review of systems due to patient sedated Physical Examination: Patient Vitals for the past 8 hrs: BP Temp Temp src Pulse Resp SpO2 Height Weight 05/21/25 0701 -- -- -- -- -- -- 5' 8" (1.727 m) -- 05/21/25 0515 107/72 -- -- 60 18 98 % -- -- 05/21/25 0500 103/69 -- -- 60 18 98 % -- -- 05/21/25 0445 91/68 -- -- 60 18 98 % -- -- 05/21/25 0415 98/66 -- -- 60 18 99 % -- -- 05/21/25 0400 92/64 -- -- 61 18 96 % -- -- 05/21/25 0345 (!) 84/58 -- -- 60 18 99 % -- -- 05/21/25 0336 -- -- -- 63 18 99 % -- -- 05/21/25 0330 100/63 -- -- 62 18 98 % -- -- 05/21/25 0315 100/59 -- -- 65 18 95 % -- -- 05/21/25 0305 -- -- -- -- -- -- -- 167 lb 1.7 oz (75.8 kg) 05/21/25 0304 130/75 36.5 C (97.7 F) Temporal 65 18 96 % -- -- 05/21/25 0300 130/75 -- -- 62 18 98 % -- -- 05/21/25 0159 119/69 -- -- 62 16 99 % -- -- 05/21/25 0130 126/75 -- -- 60 16 100 % -- -- 05/21/25 0112 96/65 -- -- 60 16 99 % -- -- 05/21/25 0111 98/64 -- -- -- -- -- -- -- 05/21/25 0109 -- 36.9 C (98.5 F) Axillary -- -- -- -- -- 05/21/25 0051 97/ -- -- -- -- -- -- -- 05/21/25 0043 103/64 -- -- 60 16 98 % -- -- 05/21/25 0028 -- (!) 39 C (102.2 F) -- -- -- -- -- -- 05/21/25 0024 125/69 -- -- 60 16 96 % -- -- 05/21/25 0009 100/ -- -- 64 16 95 % -- -- I/O last 3 completed shifts: In: 80 (1.1 mL/kg) [NG/GT:80] Out: 300 (4 mL/kg) [Urine:300 (0.1 mL/kg/hr)] Weight: 75.8 kg General Physical Examination: General: Intubated, sedated on Propofol HEENT:Normocephalic, atraumaticl CV: S1+S2, RRR, no MRG. Pulm: mechanically ventilated Abdomen: Soft NT/ND. BS + Skin: Intact without ulcers, breakdowns or discoloration Extremities: normal with no edema or cyanosis Orthopedic limitation; N/A Pulses: Intact peripherally Carotid auscultation :No bruits Neurological Examination: Higher Functions: Mental Status Exam: Level of Alertness:Sedated Orientation: intubated, can't talk Memory: intubated, can't talk Fund of Knowledge: intubated, can't talk Language: intubated, can'ttalk Dysarthria Intubated Cranial Nerves: -II Visual acuity: abnormal, limited due to patient unable to perform exam -II Visual diggs: poor reliability due to patient level ofconsciousness or structural limitation -III Pupils (~ 4 mm OD, 4 mm OU) equal, round, reactive to light -III-IV- Extraocular Movements: unable to assess -Nystagmus not present -Saccades and pursuits unable to assess -V Facial sensation: unable to assess Corneal's Intact bilateral -VII Facial strength: unable to assess -VIII Hearing: intact, pt is following commands -IX-X- Gag reflex Intubated -X Palate:intact -XI Shoulder shrug: unable to assess -XII Tongue movement: unable to assess Motor Examination: Tone after evaluation of 4 limbs, the following findings applied: Normal . all limbs -Bulk: normal -Muscle Stretchafter evaluation of all limbs, and axial musculature the following findings applied: Drift: unable to assess -Reflexes: after evaluation of 4 limbs, the following findings applied ; normal all limbs -Plantar responce: Flexor bilaterally Sensory appears normal but limited reliability, withdraws to pain all four extremities Coordination: Arms patient unable to perform test due to sedation, paralysis or limb orthopedic circumstances Legs patient unable to perform testdue to sedation, paralysis or limb orthopedic circumstances Tremors not present Gait abnormal, patient unable to walk due to acute circumstances / bedrest / safety concerns Results Labs: Last 24hrs Recent Results (from the past 24 hours) Blood gas, venous ([facility] and [facility]) Collection Time: 05/20/25 10:20 PM Result Value Ref Range pH, Venous 7.428 (H) 7.320 - 7.420 pCO2, Venous 47.2 38.0 - 56.0 mm Hg pO2, Venous 34.5 mm Hg HCO3, Venous 30.5 (H) 21.0 - 30.0 mmol/L O2 Sat, Venous 64.7 % Base Excess, Venous 5.0 (H) -3.0 - 3.0 mmol/L Hgb, blood gas 17.0 Screen only g/dl TCO2, Venous 31.9 (H) 23.0 - 30.0 mmol/L Source Of Oxygen Non-Invasive Ventilator Amount Of Oxygen 100 Blood Gas, Arterial ([facility] and [facility]) Collection Time: 05/20/25 10:20 PM Result Value Ref Range pH, Arterial 7.514 (H) 7.350 - 7.450 pCO2, Arterial 32.7 (L) 35.0 - 48.0 mm Hg pO2, Arterial 431.2 (H) 83.0 - 108.0 mm Hg HCO3, Arterial 25.7 21.0 - 27.0 mmol/L O2 Sat, Arterial 99.6 (H) 97.0 - 99.0 % Base Excess, Arterial 3.5 (H) -3.0 - 3.0 mmol/L CO2 Total 26.7 22.0 - 28.0 mmol/L Hgb, blood gas 16.4 Screen only g/dl Source Of Oxygen Non-Invasive Ventilator Amount Of Oxygen 100 Lactic acid with reflex Collection Time: 05/20/25 10:20 PM Result Value Ref Range LACTIC ACID 3.3 (H) 0.5 - 2.2 mmol/L Blood culture Site #1 - Suspected Infection Collection Time: 05/20/25 10:20 PM Specimen: Blood, Venous Result Value Ref Range Blood Culture Blood culture incubation started Blood culture Site #2 - Suspected Infection Collection Time: 05/20/25 10:20 PM Specimen: Blood, Venous Result Value Ref Range Blood Culture Blood culture incubation started Comprehensive metabolic panel Collection Time: 05/20/25 10:20 PM Result Value Ref Range SODIUM 121 (L) 136 - 145 mmol/L POTASSIUM 3.6 3.5 - 5.1 mmol/L CHLORIDE 78 (L) 98 - 107 mmol/L CARBON DIOXIDE 25 23 - 31 mmol/L ANION GAP 18 (H) 3 - 13 mmol/L UREA NITROGEN 22 9 - 23 mg/dL CREATININE 1.48 (H) 0.72 - 1.25 mg/dL GLUCOSE 140 (H) 82 - 115 mg/dL CALCIUM 9.4 8.8 - 10.0 mg/dL AST (SGOT) 27 <34 U/L ALT 7 <40 U/L ALKALINE PHOSPHATASE 142 40 - 150 U/L ALBUMIN 3.7 3.4 - 4.8 g/dL BILIRUBIN, TOTAL 1.2 (H) <1.2 mg/dL TOTAL PROTEIN 7.7 6.4 - 8.3 g/dL eGFR 51.2 (L) >60.0 mL/min/1.73m*2 CBC auto differential Collection Time: 05/20/25 10:20 PM Result Value Ref Range Auto WBC 12.7 (H) 3.6 - 10.7 10*3/uL RBC 5.13 4.40 - 5.90 10*6/uL Hemoglobin 15.7 13.0 - 18.0 g/dL Hematocrit 43.6 40.0 - 52.0 % MCV 85.0 77.0 - 99.0 fL MCH 30.6 26.0 - 34.0 pg MCHC 36.0 30.5 - 36.0 % RDW 11.9 11.5 - 15.0 % Platelets 171 140 - 440 10*3/uL MPV 9.8 9.0 - 12.7 fL Magnesium Collection Time: 05/20/25 10:20 PM Result Value Ref Range MAGNESIUM 1.4 (L) 1.6 - 2.6 mg/dL Serial Troponin, High Sensitivity Collection Time: 05/20/25 10:20 PM Result Value Ref Range Troponin HS Serial Baseline 61 (H) <=35 ng/L NT PRO BNP Collection Time: 05/20/25 10:20 PM Result Value Ref Range NT PRO BNP 7,094 (H) <125 pg/mL Procalcitonin Test Collection Time: 05/20/25 10:20 PM Result Value Ref Range PROCALCITONIN 0.51 (H) <0.07 ng/mL Bilirubin, direct Collection Time: 05/20/25 10:20 PM Result Value Ref Range BILIRUBIN, DIRECT 0.4 <0.5 mg/dL MANUAL DIFFERENTIAL (CELLAVISION) Collection Time: 05/20/25 10:20 PM Result Value Ref Range RBC Morphology Normal Neutrophils % 93 (H) 38 - 82 % Bands % 7 (H) <=0 % Lymphocytes % 0 (L) 15 - 45 % Monocytes % 0 (L) 5 - 13 % Absolute Neutrophil Count 12.7 (H) 1.8 - 7.5 10*3/uL Bands Absolute 0.9 (H) <=0.0 10*3/uL Lymphocytes Absolute 0.0 (L) 1.0 - 4.3 10*3/uL Monocytes Absolute 0.0 0.0 - 0.9 10*3/uL Neutrophils Manual 96 Lymphocytes Manual 0 Monocytes Manual 0 Eosinophils Manual Basophils Manual Bands Manual 7 Metamyelocytes Manual Myelocytes Manual Promyelocytes Manual Blasts Manual Atypical Lymphocytes Manual Unclassified Cells, Manual Ethanol Collection Time: 05/20/25 10:20 PM Result Value Ref Range ETHANOL IN SER/PLAS <10 <10 mg/dL Phosphorus Collection Time: 05/20/25 10:20 PM Result Value Ref Range PHOSPHORUS 2.4 2.3 - 4.7 mg/dL TSH Collection Time: 05/20/25 10:20 PM Result Value Ref Range THYROID STIMULATING HORMONE 0.57 0.35 - 4.94 uIU/mL SARS-CoV-2, Flu A/B, and RSV Combo Collection Time: 05/20/25 10:32 PM Specimen: Nasopharynx; Swab Result Value Ref Range SARS-CoV-2 Not Detected Not Detected Respiratory Syncytial Virus Not Detected Not Detected Influenza A Not Detected Not Detected Influenza B Not Detected Not Detected Respiratory Pathogens Panel by PCR Collection Time: 05/20/25 10:32 PM Specimen: Nasopharynx; Swab Result Value Ref Range SARS-CoV-2 Not Detected Not Detected Adenovirus Not Detected Not Detected Coronavirus HKU1 Not Detected Not Detected Coronavirus NL63 Not Detected Not Detected Coronavirus 229E Not Detected Not Detected Coronavirus OC43 Not Detected Not Detected Human Metapneumovirus Not Detected Not Detected Human Rhinovirus/Enterovirus Not Detected Not Detected Influenza A Not Detected Not Detected Influenza B Not Detected Not Detected Parainfluenza 1 Not Detected Not Detected Parainfluenza 2 Not Detected Not Detected Parainfluenza 3 Not Detected Not Detected Parainfluenza 4 Not Detected Not Detected Respiratory Syncytial Virus Not Detected Not Detected Bordetella pertussis Not Detected Not Detected Bordetella parapertussis Not Detected Not Detected Chlamydia pneumoniae Not Detected Not Detected Mycoplasma pneumoniae Not Detected Not Detected ECG 12 lead Collection Time: 05/20/25 10:41 PM Result Value Ref Range Heart Rate 82 bpm QRSD Interval 205 ms QT Interval 514 ms QTC Interval 601 ms P [place] 0 degrees QRS [place] 226 degrees T Wave [place] 104 degrees [place] Interval 0 ms Osmolality, urine Collection Time: 05/20/25 11:47 PM Result Value Ref Range OSMOLALITY, URINE 244 (L) 300 - 1,000 mOsm/kg Sodium with creatinine, urine, random Collection Time: 05/20/25 11:47 PM Result Value Ref Range SODIUM, URINE <20 mmol/L CREATININE, URINE 82.6 63.0 - 166.0 mg/dL SODIUM, URINE, FRACTIONAL EXCRETION <0.3 SODIUM, URINE, TUBULAR REABSORPTION >1.0 Urinalysis complete with reflex to Culture Collection Time: 05/20/25 11:47 PM Result Value Ref Range Color, Urine Yellow Lt. Yellow Clarity, Urine Turbid (A) Clear pH, Urine 5.5 5.0 - 8.0 pH Leukocytes, Urine Negative Negative Jacqui/uL Nitrite, Urine Negative Negative Protein, Urine 70 (A) Negative mg/dL Glucose, Urine 500 (A) Normal (<70) mg/dL Bilirubin, Urine Negative Negative mg/dL Ketones, Urine Negative Negative mg/dL Urobilinogen, Urine Normal Normal (0-1) mg/dL Blood, Urine 0.06 (A) Negative mg/dL RBC, Urine 3-5 (A) 0 - 2 /HPF WBC, Urine 3-5 0 - 5 /HPF Squamous Epithelial, Urine 0-2 3 - 5 /HPF Non-Squamous Epithalial Cells, Urine 0-2 (A) Negative /HPF Bacteria, Urine Few (A) Negative /HPF Mucus, Urine Few Negative /LPF Amorphous Crystals, Urine Few (A) Negative /HPF Hyaline Casts, Urine 0-2 (A) Negative /LPF Granular Casts, Urine 0-2 (A) Negative /LPF SPECIFIC GRAVITY OF URINE (NUMERIC) 1.009 1.005 - 1.030 Drug screen panel, emergency Collection Time: 05/20/25 11:47 PM Result Value Ref Range AMPHETAMINE SCREEN Negative BARBITURATES SCREEN Negative BENZODIAZEPINE SCREEN Negative COCAINE METAB. SCREEN Negative METHADONE SCREEN Negative OPIATES SCREEN Negative OXYCODONE SCREEN Negative PHENCYCLIDINE SCREEN Negative FENTANYL SCREEN, UR QUAL Negative Urine Hold Cup Collection Time: 05/20/25 11:47 PM Result Value Ref Range Extra Tube Hold for add-ons. Legionella and Streptococcus Urine Antigen Collection Time: 05/20/25 11:47 PM Specimen: Urine, Clean Catch Result Value Ref Range Legionella pneumophila Ag Not Detected Not Detected Streptococcus pneumoniae Ag Detected (A) Not Detected Urine Hold Cup Collection Time: 05/20/25 11:47 PM Result Value Ref Range Extra Tube Hold for add-ons. Troponin, High Sensitivity, Serial, Second Test Collection Time: 05/21/25 1:48 AM Result Value Ref Range 2h Troponin HS (Serial 2nd Troponin) 92 (H) <=35 ng/L Osmolality Collection Time: 05/21/25 1:48 AM Result Value Ref Range OSMOLALITY, SERUM 260 (L) 280 - 300 mOsm/kg CK Now and Weekly While on Propofol Collection Time: 05/21/25 1:48 AM Result Value Ref Range CK 86 30 - 185 U/L Triglycerides Now and Weekly While on Propofol Collection Time: 05/21/25 1:48 AM Result Value Ref Range TRIGLYCERIDE 76 <150 mg/dL Magnesium Collection Time: 05/21/25 1:48 AM Result Value Ref Range MAGNESIUM 1.8 1.6 - 2.6 mg/dL Phosphorus Collection Time: 05/21/25 1:48 AM Result Value Ref Range PHOSPHORUS 1.8 (L) 2.3 - 4.7 mg/dL Basic metabolic panel Collection Time: 05/21/25 1:48 AM Result Value Ref Range SODIUM 124 (L) 136 - 145 mmol/L POTASSIUM 2.5 (LL) 3.5 - 5.1 mmol/L CHLORIDE 87 (L) 98 - 107 mmol/L CARBON DIOXIDE 22 (L) 23 - 31 mmol/L UREA NITROGEN 22 9 - 23 mg/dL CREATININE 1.41 (H) 0.72 - 1.25 mg/dL GLUCOSE 118 (H) 82 - 115 mg/dL CALCIUM 8.3 (L) 8.8 - 10.0 mg/dL ANION GAP 15 (H) 3 - 13 mmol/L eGFR 54.3 (L) >60.0 mL/min/1.73m*2 Cortisol Collection Time: 05/21/25 1:48 AM Result Value Ref Range CORTISOL 64.6 (H) 3.7 - 19.4 ug/dL Lactic acid with reflex Collection Time: 05/21/25 3:10 AM Result Value Ref Range LACTIC ACID 1.2 0.5 - 2.2 mmol/L Calcium, ionized Collection Time: 05/21/25 3:10 AM Result Value Ref Range Calcium, Ion 3.80 (L) 4.30 - 5.20 mg/dL PH, IONIZED CALCIUM 7.38 7.31 - 7.46 CBC auto differential Collection Time: 05/21/25 3:10 AM Result Value Ref Range Auto WBC 30.9 (HH) 3.6 - 10.7 10*3/uL RBC 4.89 4.40 - 5.90 10*6/uL Hemoglobin 14.9 13.0 - 18.0 g/dL Hematocrit 42.0 40.0 - 52.0 % MCV 85.9 77.0 - 99.0 fL MCH 30.5 26.0 - 34.0 pg MCHC 35.5 30.5 - 36.0 % RDW 12.4 11.5 - 15.0 % Platelets 161 140 - 440 10*3/uL MPV 9.8 9.0 - 12.7 fL Basic metabolic panel Collection Time: 05/21/25 3:10 AM Result Value Ref Range SODIUM 122 (L) 136 - 145 mmol/L POTASSIUM 2.2 (LL) 3.5 - 5.1 mmol/L CHLORIDE 85 (L) 98 - 107 mmol/L CARBON DIOXIDE 25 23 - 31 mmol/L UREA NITROGEN 24 (H) 9 - 23 mg/dL CREATININE 1.45 (H) 0.72 - 1.25 mg/dL GLUCOSE 136 (H) 82 - 115 mg/dL CALCIUM 8.6 (L) 8.8 - 10.0 mg/dL ANION GAP 12 3 - 13 mmol/L eGFR 52.5 (L) >60.0 mL/min/1.73m*2 Salicylate level Collection Time: 05/21/25 3:10 AM Result Value Ref Range SALICYLATES <5.0 (L) 15.0 - 30.0 mg/dL Acetaminophen level Collection Time: 05/21/25 3:10 AM Result Value Ref Range ACETAMINOPHEN <5.0 (L) 10.0 - 30.0 ug/mL Man Differential Collection Time: 05/21/25 3:10 AM Result Value Ref Range Neutrophils % 76 38 - 82 % Bands % 20 (H) <=0 % Lymphocytes % 1 (L) 15 - 45 % Monocytes % 3 (L) 5 - 13 % Absolute Neutrophil Count 29.7 (H) 1.8 - 7.0 10*3/uL Segs Absolute 29.7 (H) 1.8 - 7.5 10*3/uL Bands Absolute 6.2 (H) <=0.0 10*3/uL Lymphocytes Absolute 0.3 (L) 1.0 - 4.3 10*3/uL Monocytes Absolute 0.9 0.0 - 0.9 10*3/uL RBC Morphology Normal Vacuolated Neutrophils Present (A) (none) PLT Morphology Normal Total Counted 100 Neutrophils Manual 76 Lymphocytes Manual 1 Monocytes Manual 3 Bands Manual 20 Differential Method Manual differential performed Respiratory culture and Stain Collection Time: 05/21/25 3:20 AM Specimen: Sputum Result Value Ref Range Respiratory culture Culture in progress Gram Stain Result Moderate Ciliated epithelial cells (A) Gram Stain Result No polymorphonuclear leukocytes seen (A) Gram Stain Result Many Gram positive cocci in pairs and chains (A) Blood Gas, Arterial Collection Time: 05/21/25 3:23 AM Result Value Ref Range pH, Arterial 7.367 7.350 - 7.450 pCO2, Arterial 42.6 >35.0 - <45.0 mm Hg pO2, Arterial 118.2 (H) 80.0 - 100.0 mm Hg HCO3, Arterial 23.9 21.0 - 25.0 mmol/L O2 Sat, Arterial 98.2 95.0 - 100.0 % Base Excess, Arterial -1.5 -3.0 - 3.0 mmol/L CO2 Total 25.2 23.0 - 27.0 mmol/L Hgb, blood gas 15.5 Screen only g/dl Source Of Oxygen Ventilator Amount Of Oxygen 50 Since admission: Recent Labs 05/21/25 0148 CKTOTAL 86 Recent Labs 05/20/25 2220 ALKPHOS 142 ALT 7 AST 27 BILITOT 1.2* BILIDIR 0.4 Stroke Specific: Lipids: Recent Labs 05/21/25 0148 TRIG 76 Radiology Personal review: 05/20 - CT Head - No acute intracranial findings. Probable chronic ischemic and atrophic changes. ASSESSMENT / PLAN / SUGGESTIONS : Left arm posturing/clenching - concern for seizure like activity in the setting of acute hypoxic respiratory failure, septic shock 2/2 LLL PNA, lactic acidosis, hyponatremia, VIMAL, possible ETOH withdrawal - received 1000mg Keppra and was started on 500mg IV BID. Discontinue antiepileptics at this time. - discontinue cEEG monitoring - no concern for seizure or stroke, neurology will sign off at this time. Patient seen and discussed with Dr. Ruben Eduardo [1] Current Facility-Administered Medications: apixaban (Eliquis) tablet 5 mg, 5 mg, Per NG/OG Tube, BID, Jayna Neopaney, DO calcium gluconate 3,000 mg in sodium chloride 0.9 % 100 mL IVPB, 3,000 mg, IntraVENous, Once, Tomas Cates MD, Last Rate: 33.3 mL/hr at 05/21/25 0523, 3,000 mg at 05/21/25 0523 cefepime (Maxipime) 2,000 mg in sodium chloride 0.9 % 50 mL IVPB Mini-Bag Plus, 2,000 mg, IntraVENous, q8h, Prince Joseph DO, Last Rate: 100 mL/hr at 05/21/25 0711, 2,000 mg at 05/21/25 0711 [START ON 05/22/2025] chlorhexidine (Hibiclens) 4 % solution, , Topical, Daily, Jayna Neopaney, DO [Held by provider] dapagliflozin (Farxiga) tablet 5 mg, 5 mg, Oral, Daily, Jayna Neopaney, DO doxycycline (Vibramycin) 100 mg in sodium chloride 0.9 % 100 mL IVPB, 100 mg, IntraVENous, q12h, Jayna Neopaney, DO, Stopped at 05/21/25 0708 fentaNYL (Sublimaze) injection 25 mcg, 25 mcg, IntraVENous, q2h PRN, PRIYA Mayfield CNP fentaNYL (Sublimaze) injection 50 mcg, 50 mcg, IntraVENous, q2h PRN, Dawn Francisco APRN - TROY flumazenil (Romazicon) injection 0.2 mg, 0.2 mg, IntraVENous, Once PRN, PRIYA Mayfield CNP folic acid 1 mg in dextrose 5 % 50 mL IVPB, 1 mg, IntraVENous, Daily, Jayna Neopaney, DO Hydrocortisone Sod Suc (PF) (Solu-CORTEF) injection 100 mg, 100 mg, IntraVENous, q12h, Jayna Neopaney, DO, 100 mg at 05/21/25 0337 ipratropium-albuterol (Duo-Neb) 0.5-2.5 mg/3 mL nebulizer solution 3 mL, 3 mL, Nebulization, TID, Jayna Neopaney, DO, 3 mL at 05/21/25 0757 levETIRAcetam in sodium chloride (Keppra) IVPB 500 mg, 500 mg, IntraVENous, BID, Jayna Neopaney, DO [Held by provider] losartan (Cozaar) tablet 25 mg, 25 mg, Oral, Daily, Jayna Neopaney, DO [Held by provider] metoprolol succinate XL (Toprol-XL) 24 hr tablet 100 mg, 100 mg, Oral, Daily, Jayna Neopaney, DO midazolam (Versed) injection 1 mg, 1 mg, IntraVENous, q2h PRN, Jayna Neopaney, DO midazolam (Versed) injection 2 mg, 2 mg, IntraVENous, q2h PRN, Jayna Neopaney, DO montelukast (Singulair) tablet 10 mg, 10 mg, Oral, Nightly, Jayna Neopaney, DO mupirocin (Bactroban) 2 % ointment 1 Application, 1 Application, Nasal, BID, Jayna Neopaney, DO naloxone (Narcan) injection 0.4 mg, 0.4 mg, IntraVENous, Once PRN, Jayna Neopaney, DO norepinephrine (Levophed) infusion 16 mg in 0.9 % sodium chloride 250 mL ([id number]) (premix), 1-100 mcg/min, IntraVENous, Continuous, Jayna Neopaney, DO, Last Rate: 5.63 mL/hr at 05/21/2522, 6 mcg/min at 05/21/25 0522 ondansetron ODT (Zofran-ODT) disintegrating tablet 4 mg, 4 mg, Oral, q8h PRN OR ondansetron (Zofran) injection 4 mg, 4 mg, IntraVENous, q6h PRN, Jayna Neopaney, DO pantoprazole (ProtoNix) 40 mg in sodium chloride (PF) 0.9 % 10 mL injection, 40 mg, IntraVENous, Daily, Jayna Neopaney, DO, 40 mg at 05/21/25 0038 propofol (Diprivan) infusion, 5-50 mcg/kg/min, IntraVENous, Continuous, Jayna Neopaney, DO, Last Rate: 10.88 mL/hr at 05/21/25 0541, 20 mcg/kg/min at 05/21/25 0541 rosuvastatin (Crestor) tablet 40 mg, 40 mg, Oral, Daily, Jayna Neopaney, DO [Held by provider] sertraline (Zoloft) tablet 100 mg, 100 mg, Oral, Daily, Jayna Neopaney, DO sodium chloride 0.9% (NS) flush 5-40 mL, 5-40 mL, IntraCATHeter, q8h, Jayna Neopaney, DO, 10 mL at 05/21/25 0324 sodium chloride 0.9% (NS) flush 5-40 mL, 5-40 mL, IntraVENous, PRN, Jayna Neopaney, DO [Held by provider] spironolactone (Aldactone) tablet 25 mg, 25 mg, Oral, Daily, Jayna Neopaney, DO thiamine (Vitamin B1) injection 100 mg, 100 mg, IntraVENous, Daily, Jayna Neopaney, DO [Held by provider] torsemide (Demadex) tablet 40 mg, 40 mg, Oral, BID, Jayna Neopaney, DO [2] norepinephrine, 1-100 mcg/min, Last Rate: 6 mcg/min (05/21/25 0522) propofol, 5-50 mcg/kg/min, Last Rate: 20 mcg/kg/min (05/21/25 0541) Cosigned by Ruben Eduardo MD at 05/21/2025 12:27 PM EDT Associated attestation - Ruben Eduardo MD - 05/21/2025 12:27 PM EDT NCC/Stroke Attestation I personally saw the patient and performed a substantive portion of the medical decision making. This included the creation and/or approval of the management plan for the number and complexity of problems addressed at this visit and the ongoing responsibility for that plan and its inherent risk. Interval history Agree with below Exam Exam intact. Move all extremities and follows commands. Assessment and Plan COPD, HFrEF (last EF 21%, 11/2023) s/p ICD, A-fib on eliquis for AC, Hx of DVT and PE, Hx of ETOH abuse NCC is consulted for an episode of arm clenching. No further events he is now aware and alert moving all extremities and following commands. Low suspicion for seizure. Even if this were a seizure it would be provoked in the setting of hyponatremia and alcohol withdrawal and not require treatment. # transient arm stiffness # EtOH withdrawal # AF on AC - No further imaging - DC cEEG - No indication for AEDs at this time - NCC to sign off please call with any further questions Ruben Eduardo MD Neurocritical Care I spent a total of 35 minutes in my independent critical care time for this neurocritically ill patient who is at high risk for both clinical and neurological decline due to further brain injury, which can occur unpredictably and rapidly cause multi-organ dysfunction. In that time I reviewed the chart including MAR, labs, neuroimaging, other imaging studies and discussed my diagnostic impression and patient's plan of care with my ISABELLE/resident/fellow/student, the consulting team and patient's family members/surrogate decision makers (in cases where the patient is incapacitated and unable to participate in their own care). Associated Order(s): IP CONSULT TO DIETITIAN Nutrition Assessment Type and Reason for Visit: Initial, Consult (Poor Intake/Appetite 5 or more days) Nutrition Recommendations/Plan: Pt is currently intubated/sedated (propofol observed @ 6.8mls/hr in room = 180 lipid kcals), pt was requiring levo which was recently stopped by RN. Pt is currently NPO. Recommend pt not be without a source of nutrition for >72 hours if medically able. --> if EN to be initiated, consider: Vital 1.5 @ goal rate of 50mls/hr to provide 1800kcals, 81gm protein, 917mL free fluid (26kcals/kg, 1.2gm/kg IBW). --> with current kcals being provided via propofol (@6.8mls/hr), above regimen would still remain appropriate and provide ~28kcals/kg IBW --> noted pt with severe electrolyte derangement currently, to avoid re-feeding syndrome given unclear nutrition intake TRANSITIONAL STUDIES INSTRUCTOR- would recommend electrolyte repletion prior to EN initiation and when EN is initiated would recommend slow/gradual increase to goal rate Will monitor tolerance of nutrition as able to be initiated via appropriate route. Will continue to monitor weight changes, labs and overall nutrition status Will monitor ability to obtain subjective nutrition history to complete malnutrition assessment at time of extubation. RD will continue to follow up weekly Malnutrition Assessment: Malnutrition Status: Insufficient data (will monitor ability to obtain additional subjective nutrition history when pt is extubated) Context: Acute Illness Findings of the 6 clinical characteristics of malnutrition: Energy Intake: Unable to assess (unclear nutrition intake TRANSITIONAL STUDIES INSTRUCTOR, pt currently intubated/sedated and unable to provide history, no visitors in room, sedated with propofol was @ 10.88mls/hr --> 6.8mls/hr currently, NPO) Weight Loss: Unable to assess (RD obtained bedscale of 79kg (174#), per EPIC review --> 04/15/24: 178#, 08/19: 195#, 09/28/24: 188#, 10/14: 188#, 11/02: 194#, unable to obtain weight history from pt 10/04 inbtubation, large fluctuations throughout last year noted/unable to determine pt UBW) Body Fat Loss: Unable to assess (deferred at this time, appears pt could have some losses however unknown baseline) Muscle Mass Loss: Unable to assess (deferred at this time, appears pt could have some losses however unknown baseline) Fluid Accumulation: No significant fluid accumulation (per flowsheets) Chucking Machine Set Up Operator Tool Strength: Not Performed Nutrition Assessment: pt with PMH significant for COPD, HFrEF (last EF 21%, 11/2023) s/p ICD, AFib (on eliquis for AC), DVT and PE, EtOH abuse who initially presented to [facility] on 05/20/25 from home after pt was found by ex minimally responsive and was having difficulty breathing, pt was brought to [facility] via EMS and was given solumedrol/duoneb en route, per EMS pt seemed altered and had posturing with his L arm, EMS was unable to get his L arm to relax as he was clenching his fingers also with tremors, initial eval at [facility] revealed vitals of temp 102.2, HR 70s, SBPs 130s now systolics in the 90s-110s, pt was on NIV and was intubated at [facility], ABG w/ pH of 7.514, pCO2 32, HCO3 25, CMP showed Na 121 (132 several months ago), Scr 1.48 (baseline 0.8), AG 18 w/ HCO3 25, Mg 1.4, ProBNP 7,000 and initial troponin 61, EKG w/o ischemic changes, initial lactic acid 3.3, procal 0.51, CBC with WBC 12.7, normal platelets, CT C/A/P demonstrated infiltrate in the left posterior lung base suspicious for PNA, CTH w/o acute intracranial findings, CXR demonstrated pulmonary vascular congestion, pt was initiated on cefepime and vancomycin, ordered 1L NS at [facility] and transferred to [facility] for further evaluation and management, NCC consulted and pending- pt was loaded with keppra/phenobarb at [facility] and cEEG initiated on arrival to [facility]. At time of assessment today pt remains intubated/sedated (propofol observed @ 6.8mls/hr in room = 180 lipid kcals, was previously @ 10.88mls/hr = 288 lipid kcals), pt was on levo support which RN just recently turned off, no fmaily/visitors present at bedside, in terms of nutrition pt remains NPO at this time, RD received consult for poor intake/appetite 5 or more days however now that pt is intubated will provide EN recs, pt CBW 167# no method on 05/21, was 200# no method on 05/20, given large variance in weight RD obtained bedscale for clarification today which resulted as 79kg (174#), per EPIC review --> 04/15/24: 178#, 08/19: 195#, 09/28/24: 188#, 10/14: 188#, 11/02: 194#, given that pt is intubated at this time unable to obtain weight history from pt- noted large fluctuations throughout the last year and unable to truly determine pt UBW, will continue to monitor ability to obtain additional nutrition data for malnutrition assessment as well as remainder of clinical course. Estimated Daily Nutrient Needs: Energy Requirements Based On: Kcal/kg Weight Used for Energy Requirements: [place] Weight for Energy Calculation (kg): 70 kg Total Energy Requirements (kcals/day): 1750-2100kcals/day Weight Used for Protein Requirements: [place] Weight in Kg Used for Protein Requirements: 70 kg Estimated Total Protein (g/day): 70-84gm pro/day Estimated Daily Total Fluid (ml/day): per MD recommendations Nutrition Related Findings: Orientation Level: Unable to Assess, Cognition: Impulsive, Unable to assess, Best Verbal Response: None, Patient Behaviors/Mood: Unable to assess Teeth: Missing teeth Feeding: Unable to assess Room Service Room Service: Assist Keegan Scale Score: 14. Wound Type: Wound Consult Pending (for prevention, per flowsheets pt with generalized bruising and abrasions) Net IO Since Admission: -620 mL [05/21/25 0923] Gastrointestinal (WDL): Exceptions to WDL Bowel Sounds (All Quadrants): Distant Abdomen Inspection: Nondistended, Soft Last BM Date: (unknown) Edema: none Oxygen Therapy: Supplemental oxygen, O2 Delivery Method: Ventilator, Labs and meds reviewed: Scheduled: Scheduled Meds[1] Continuous: Continuous Meds[2] Current Nutrition Therapies: NPO diet with enteral medications Current Oral Intake Average Meal Intake: NPO Average Supplements Intake: NPO Anthropometric Measures: Height: 172.7 cm (5' 8") Current Body Weight: 79 kg (174 lb 2.6 oz) (RD obtained bedscale weight tday) Weight Source: Bed Scale Admission Body Weight: 90.7 kg (200 lb) (no method 05/20) Usual Body Weight: (per EPIC review --> 04/15/24: 178#, 08/19: 195#, 09/28/24: 188#, 10/14: 188#, 11/02: 194#) [place] Body Weight (lbs) (Calculated): 154 lbs [place] Body Weight (Kg) (Calculated): 70 kg % [place] Body Weight (Calculated): 113.1 % BMI (kg/m2) (Calculated): 26.5 Weight Adjustment For: No Adjustment BMI Categories: Overweight (BMI 25.0-29.9) Wt Readings from Last 10 Encounters: 05/21/25 78.9 kg (174 lb) 11/02/24 88 kg (194 lb 0.1 oz) 10/14/24 85.7 kg (188 lb 14.4 oz) 09/28/24 85.6 kg (188 lb 12.8 oz) 09/16/24 80.1 kg (176 lb 9.6 oz) 08/19/24 88.5 kg (195 lb) 04/15/24 81.1 kg (178 lb 12.8 oz) 03/02/24 89 kg (196 lb 1.6 oz) 02/14/24 84 kg (185 lb 3 oz) 11/12/23 83.5 kg (184 lb) Nutrition Diagnosis: Inadequate oral intake related to impaired respiratory function as evidenced by NPO or clear liquid status due to medical condition, intubation Altered nutrition-related lab values related to renal dysfunction, endocrine dysfuntion as evidenced by lab values Nutrition Interventions: Nutrition Education/Counseling: No recommendation at this time Coordination of Nutrition Care: Continue to monitor while inpatient Plan of Care discussed with: RN Goals: Goals: Initiate nutrition support, within 2 days Nutrition Monitoring and Evaluation: Behavioral-Environmental Outcomes: None Identified Food/Nutrient Intake Outcomes: Enteral Nutrition Intake/Tolerance Physical Signs/Symptoms Outcomes: Biochemical Data, GI Status, Fluid Status or Edema, Hemodynamic Status, Weight, Skin, Nutrition Focused Physical Findings Discharge Planning: Too soon to determine Alba Anna RD Contact: available via [employer] or *[phone] [1] apixaban, 5 mg, Per NG/OG Tube, BID cefepime, 2,000 mg, IntraVENous, q8h [START ON 05/22/2025] chlorhexidine, , Topical, Daily [Held by provider] dapagliflozin, 5 mg, Oral, Daily doxycycline, 100 mg, IntraVENous, q12h folic acid 1 mg in dextrose 5 % 50 mL IVPB, 1 mg, IntraVENous, Daily Hydrocortisone Sod Suc (PF), 100 mg, IntraVENous, q12h ipratropium-albuterol, 3 mL, Nebulization, TID levETIRAcetam, 500 mg, IntraVENous, BID [Held by provider] losartan, 25 mg, Oral, Daily [Held by provider] metoprolol succinate XL, 100 mg, Oral, Daily montelukast, 10 mg, Oral, Nightly mupirocin, 1 Application, Nasal, BID pantoprazole (ProtoNix) 40 mg in sodium chloride (PF) 0.9 % 10 mL injection, 40 mg, IntraVENous, Daily rosuvastatin, 40 mg, Oral, Daily [Held by provider] sertraline, 100 mg, Oral, Daily sodium chloride 0.9%, 5-40 mL, IntraCATHeter, q8h [Held by provider] spironolactone, 25 mg, Oral, Daily thiamine, 100 mg, IntraVENous, Daily [Held by provider] torsemide, 40 mg, Oral, BID [2] norepinephrine, 1-100 mcg/min, Last Rate: Stopped (05/21/25 0905) propofol, 5-50 mcg/kg/min, Last Rate: 20 mcg/kg/min (05/21/25912) documented in this encounter [facility] 05-31-2025 Note OCCUPATIONAL THERAPY [facility] Name/MRN: Krystina Markham ([id number]) Date: 05/31/2025 Evaluation is being deferred at present because another caregiver is actively providing care for the patient . Dominga Garcia OT [facility] 05-27-2025 Telephone encounter Note Last office visit: 09/28/2024 Next office visit: none [facility] 05-27-2025 Miscellaneous Notes Last office visit: 09/28/2024 Next office visit: none documented in this encounter [facility] 05-25-2025 Note [facility] 05-25-2025 Note Peripheral IV Date/Time: 05/25/2025 2:17 PM Placement Needle size: 16 G Laterality: left Location: forearm Local anesthetic: none Site prep: alcohol Technique: anatomical landmarks Attempts: 1 [facility] 05-25-2025 Note [facility] 05-25-2025 Note H&P reviewed. The pa sheronnt was examined and there are no changes to the H&P. [facility] 05-25-2025 History and physical note H&P reviewed. The patient was examined and there are no changes to the H&P. Source Note - Karthik Mendoza MD - 05/22/2025 10:24 AM EDT [facility] [place] [facility] [place]iology Consult Note Reason for Consult/Chief Complaint: Staph bacteremia Referring provider: Marita Established analytics director: Ric Foote History of Present Illness: Krystina Markham is a 69 y.o. male was admitted to [facility] May 21 after being found at home in respiratory distress and minimally responsive. He was felt to be in septic shock and had evidence of a left lower lobe pneumonia. He was intubated. He has had 2 consecutive blood cultures positive for staph aureus methicillin resistant. He has been on intravenous antibiotics and now is extubated with improvement in his respiratory condition. He did have a echocardiogram on admission that showed ejection fraction of 50 % with no significant valvular heart disease and no vegetation visualized. He has not received any ICD discharges. His current telemetry shows atrial fibrillation which is chronic with intermittent biventricular pacing. 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 Almaraz and last seen 09/19/2022. Since his last office visit he has had multiple hospitalizations for COPD exacerbation, pneumonia and heart failure. He is noncompliant with medications and follow-up at times. Last echocardiogram done November 2023 with ejection fraction of 21% with global hypokinesis, 3+ tricuspid regurgitation with RVSP 47 mmHg, severe left atrial dilation and 1-2+ mitral regurgitation. His most recent hospitalization was September 2024 after he stopped taking his heart failure medications and was admitted for acute decompensated heart failure. He was noted to have hyponatremia. Cardiology was not consulted during that admission. He was diuresed and placed back on GDMT. He presents today for continued follow-up. Assessment/Plan HF NYHA Class [] I [] II [] III [] IV []Unable to assess The patient has staph bacteremia and a 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 in place. He will need device extraction regardless of visible vegetations on the leads given the organism. We will arrange an extraction procedure and a MERLIN during the time of the extraction next week. We will follow the patient while in the hospital. Medications: Scheduled Meds[1] Infusion Medications: Continuous Meds[2] Physical Examination: Vitals: 05/22/25 0628 05/22/25 0700 05/22/25 0739 05/22/25 0800 BP: 130/79 125/67 BP Location: Patient Position: Pulse: 60 60 64 72 Resp: Temp: 36.1 C (96.9 F) TempSrc: Temporal SpO2: 96% 97% 99% 92% Weight: Height: PF: Intake/Output Summary (Last 24 hours) at 05/22/2025 1024 Last data filed at 05/22/2025 0740 Gross per 24 hour Intake 2485 ml Output 1750 ml Net 735 ml Wt Readings from Last 3 Encounters: 05/22/25 170 lb 10.2 oz (77.4 kg) 11/02/24 194 lb 0.1 oz (88 kg) 10/14/24 188 lb 14.4 oz (85.7 kg) Physical Exam Constitutional: General: He is not in acute distress. Appearance: He is normal weight. He is ill-appearing. HENT: Head: Normocephalic and atraumatic. Eyes: General: No scleral icterus. Neck: Vascular: No carotid bruit. Cardiovascular: Rate and Rhythm: Normal rate. Rhythm irregular. Heart sounds: No murmur heard. No gallop. Pulmonary: Effort: Pulmonary effort is normal. Breath sounds: Wheezing present. Abdominal: General: Abdomen is flat. Palpations: Abdomen is soft. Tenderness: There is no abdominal tenderness. Musculoskeletal: Right lower leg: No edema. Left lower leg: No edema. Skin: General: Skin is warm and dry. Findings: No lesion or rash. Neurological: Mental Status: He is alert and oriented to person, place, and time. Psychiatric: Mood and Affect: Mood normal. Thought Content: Thought content normal. oratory Tests: TROPONIN I, CONVENTIONAL SENSITIVITY CK Date Value Ref Range Status 05/21/2025 86 30 - 185 U/L Final 11/01/2024 150 30 - 185 U/L Final 02/14/2024 110 30 - 170 U/L Final 12/30/2022 223 (H) 30 - 170 U/L Final 12/29/2022 448 (H) 30 - 170 U/L Final CKMB Date Value Ref Range Status 02/14/2024 4.1 0.0 - 4.4 ng/mL Final TROPONIN I Date Value Ref Range Status 02/14/2024 0.025 <0.034 ng/mL Final 02/13/2024 0.026 <0.034 ng/mL Final 02/13/2024 0.023 <0.034 ng/mL Final 11/12/2023 0.016 <0.034 ng/mL Final 11/11/2023 0.017 <0.034 ng/mL Final TROPONIN I, HIGH SENSITIVITY Troponin HS Serial Baseline Date Value Ref Range Status 05/20/2025 61 (H) <=35 ng/L Final Comment: In individuals presenting with symptoms > 2h, a baseline troponin <= 5 ng/L suggests acute cardiac injury is unlikely and further serial testing is generally not indicated. 11/01/2024 16 <=35 ng/L Final Comment: In individuals presenting with symptoms > 2h, a baseline troponin <= 5 ng/L suggests acute cardiac injury is unlikely and further serial testing is generally not indicated. 09/10/2024 37 (H) <=35 ng/L Final 08/19/2024 37 (H) <=35 ng/L Final 2h Troponin HS (Serial 2nd Troponin) Date Value Ref Range Status 05/21/2025 92 (H) <=35 ng/L Final Comment: 2h troponin (2nd troponin) samples collected between 1h 40 min and 2h and 20 min of the baseline collection time can be utilized to interpret delta troponins as per [employer] algorithms. Samples collected outside this timeframe need to be interpreted clinically. Rising or falling troponin delta greater than 15 ng/L as compared to baseline value is significant for acute cardiac injury. 11/01/2024 20 <=35 ng/L Final Comment: Rising or falling troponin delta between 2 - 15 ng/L as compared to baseline value requires a 3rd serial troponin 09/10/2024 38 (H) <=35 ng/L Final 08/19/2024 35 <=35 ng/L Final Absolute Delta (2nd - Baseline Troponin) Date Value Ref Range Status 09/10/2024 1 <=2 ng/L Final Comment: This specimen was collected more than 20 minutes away from the 2 hour target. Use of this delta with the 2 hour troponin algorithm is not recommended, individualized clinical assessment is needed. A troponin delta greater than or equal to 15 ng/L is significant for acute cardiac injury. Values less than 15 but greater than 2 are an intermediate change requiring a 3rd serial troponin to be drawn. Values less than or equal to 2 indicate acute cardiac injury is not likely, see external algorithms for further clinical guidance. 08/19/2024 -2 <=2 ng/L Final Comment: A troponin delta greater than or equal to 15 ng/L is significant for acute cardiac injury. Values less than 15 but greater than 2 are an intermediate change requiring a 3rd serial troponin to be drawn. Values less than or equal to 2 indicate acute cardiac injury is not likely, see external algorithms for further clinical guidance. 4h Troponin HS (Serial 3rd Troponin) Date Value Ref Range Status 11/01/2024 24 <=35 ng/L Final Comment: Rising or falling troponin delta between 2 - 15 ng/L as compared to 2h troponin value requires further evaluation. No results found for: "TROPDELTSEC" Recent Labs 05/21/25 1614 05/21/25 2007 05/21/25 2352 05/22/25 0358 05/22/25 0834 NA 127* 128* 129* 127* 130* K 3.7 3.8 3.8 5.2* 3.7 CL 95* 92* 93* 95* 95* CO2 24 24 24 19* 22* BUN 24* 24* 25* 24* 26* CREATININE 1.32* 1.25 1.18 1.20 1.20 EGFR 58.8* 62.7 67.2 65.9 65.9 Recent Labs 05/20/25 2220 05/21/25 0310 05/21/25 0323 05/22/25 0326 05/22/25 0358 WBC 12.7* 30.9* -- -- 23.3* HGB 17.0 16.4 15.7 14.9 15.5 13.9 13.4 HCT 43.6 42.0 -- -- 38.7* MCV 85.0 85.9 -- -- 88.0 PLT 171 161 -- -- 139* Lab Results Component Value Date HGBA1C 5.9 (H) 02/14/2024 Lab Results Component Value Date TSH 0.57 05/20/2025 Lab Results Component Value Date CHOL 99 02/14/2024 CHOL 155 07/16/2022 Lab Results Component Value Date HDL 53 02/14/2024 HDL 90 (H) 07/16/2022 Lab Results Component Value Date LDLCALC 33 02/14/2024 LDLCALC 54 07/16/2022 Lab Results Component Value Date TRIG 76 05/21/2025 TRIG 64 02/14/2024 TRIG 53 07/16/2022 No results found for: "CHOLHDL" No results found for: LDLCHOLESTER Recent Labs 05/20/25 2220 BNP 7,094* No results for input(s): "INR" in the last 72 hours. Results from last 7 days Lab Units 05/20/25 2220 AST U/L 27 ALT U/L 7 No results found for: "IRON", "TIBC", "FERRITIN" Radiology: CXR: Narrative & Impression Patient Name: KRYSTINA MARKHAM : 1955 Exam Date/Time: 05/22/2025 05:31 Procedure: XR CHEST 1 VIEW Ordering Provider: LANGE CHARLES Reason For Exam: Respiratory failure, intubated PORTABLE CHEST X-RAY CLINICAL INDICATION: Respiratory failure A portable frontal view of the chest was obtained. COMPARISON: 05/21/2025 FINDINGS: Heart size is within normal limits. Endotracheal tube, feeding tube, right jugular catheter, and left-sided pacemaker device are unchanged. Chronic interstitial changes are again noted within the lungs. Left retrocardiac atelectasis or infiltrate and small left pleural effusion appears similar. No new areas of consolidation are seen. There are degenerative changes of the spine and the bilateral shoulders. Old deformity of the left humeral head is not fully imaged. IMPRESSION: No significant change when compared with the previous study. Report Dictated on Electronically Signed By: Charlie Carter MD Electronically Signed Date/Time: 05/22/2025 9:[address] chest abdomen pelvis without contrast Status: Final result Link to Procedure Log Procedure Log Orders Requiring a Screening Form Procedure Order Status Order ID Accession Number Form Status CT chest abdomen pelvis without contrast Completed [id number] Created PACS Images Show images for CT chest abdomen pelvis without contrast Study Result Narrative & Impression Patient Name: KRYSTINA MARKHAM : 1955 Exam Date/Time: 05/20/2025 22:55 Procedure: CT CHEST ABDOMEN PELVIS WO CONTRAST Ordering Provider: JOSEPH VISHNU Reason For Exam: sepsis; ams CT chest without contrast HISTORY: Sepsis TECHNIQUE: 3 mm axial images from the lung apices to the adrenal glands without intravenous contrast Dose reduction was employed with automated exposure control. Infiltrate in the left posterior lung base suspicious for pneumonia. Emphysematous changes in the lungs. Again seen are compression fractures of T6-T8. Interval development of a compression fracture of T9. No lymphadenopathy. Coronary artery calcifications are present. COMPARISON: 07/12/2022 CT abdomen and pelvis without contrast Technique: 3 mm axial images from the lung bases to just below the pubic symphysis without intravenous contrast The liver, gallbladder, spleen, pancreas, adrenals and kidneys are normal. No bowel inflammation or obstruction. No free fluid. The bladder is unremarkable. Densely calcified aortoiliac atherosclerosis. IMPRESSION: Infiltrate in the left posterior lung base suspicious for pneumonia. Again seen are compression fractures of T6-T8. Interval development of a compression fracture of T9. Cardiac Tests Personally Reviewed: Last EKG 05/20/25 ECG 12-LEAD 05/22/2025 8:13 AM (Final) Impression ATRIAL FIBRILLATION Ventricular-paced complexes Electronically Signed On 05-22-2025 08:13:20 EDT by Alek Gordon Signed by: Alek Gordon MD on 05/22/2025 8:13 AM Telemetry findings: afib, ventricular demand pacing. LBBB Reports reviewed: Last Echo 05/20/25 TRANSTHORACIC ECHOCARDIOGRAM (TTE) COMPLETE (CONTRAST/BUBBLE/3D PRN) 05/21/2025 11:34 AM (Final) Interpretation Summary Left Ventricle: Left ventricle is mildly dilated. Mildly increased wall thickness. Low normal left ventricular systolic function. EF by 2D Simpsons Biplane is 50%. Global longitudinal strain is reduced with a value of -13.3%. See diagram for wall motion findings. Indeterminate diastolic function due to atrial fibrillation. Right Ventricle: Right ventricle is mildly dilated. ICD lead present in the right ventricle. Normal systolic function. Left Atrium: Left atrium size is severely increased (LA volume index >48 mL/m2).LA Vol Index is 57 ml/m2. Right Atrium: Right atrium is severely dilated. No significant valvular abnormalities. In comparison to the previous study on 11/12/2023, LVEF has improved. Signed by: Charlie Robbins MD on 05/21/2025 11:34 AM Karthik Mendoza MD DATE of SERVICE: 05/22/2025 [1] apixaban, 5 mg, Per NG/OG Tube, BID cefTRIAXone, 1,000 mg, IntraVENous, q24h chlorhexidine, , Topical, Daily [Held by provider] dapagliflozin, 5 mg, Oral, Daily folic acid 1 mg in dextrose 5 % 50 mL IVPB, 1 mg, IntraVENous, Daily Hydrocortisone Sod Suc (PF), 100 mg, IntraVENous, q12h ipratropium-albuterol, 3 mL, Nebulization, TID [Held by provider] losartan, 25 mg, Oral, Daily [Held by provider] metoprolol succinate XL, 100 mg, Oral, Daily montelukast, 10 mg, Oral, Nightly mupirocin, 1 Application, Nasal, BID pantoprazole (ProtoNix) 40 mg in sodium chloride (PF) 0.9 % 10 mL injection, 40 mg, IntraVENous, Daily rosuvastatin, 40 mg, Oral, Daily sertraline, 100 mg, Per NG/OG Tube, Daily sodium chloride 0.9%, 5-40 mL, IntraCATHeter, q8h [Held by provider] spironolactone, 25 mg, Oral, Daily thiamine, 100 mg, IntraVENous, Daily [Held by provider] torsemide, 40 mg, Oral, BID vancomycin, 1,500 mg, IntraVENous, q24h [2] dexmedeTOMIDine, 0.1-1.5 mcg/kg/hr, Last Rate: Stopped (05/22/25 0500) norepinephrine, 1-100 mcg/min, Last Rate: Stopped (05/21/25 0905) propofol, 5-50 mcg/kg/min, Last Rate: Stopped (05/21/25 1552) Images from the original note were not included. Internal Medicine: MICU Initial History and Physical Name: Krystina Markham : 1955(69 y.o.) Date: 05/20/25 Attending: Dr. Lange Subjective: Chief Complaint: SOB HPI: Patient is a 69 y.o M w/ PMHx significant for COPD, HFrEF (last EF 21%, 11/2023) s/p ICD, A-fib on eliquis for AC, Hx of DVT and PE, Hx of ETOH abuse who initially presented to the [facility] on 04/19/25 from home after patient was found by her ex at home minimally responsive and was having difficulty breathing. Patient was brought to [facility] via EMS and was given solumedrol/duoneb en route. Per EMS, patient seemed altered and had posturing w/ his L arm. EMS were unable to to get his L arm to relax as he was clenching his fingers w/ some tremors. Initial eval at [facility]; vitals; Temp 102.2, HR 70s, SBPs 130s now systolics in the 90s-110s. Was on NIV and was intubated at [facility]. ABG w/ pH of 7.514, pCO2 32 HCO3 25. CMP w/ Na of 121 (132 several months ago), Scr 1.48 (baseline 0.8), AG 18 w/ HCO3 25, Mag 1.4, ProBNP 7,000 and initial troponin of 61. EKG w/o ischemic changes. Initial lactic acid 3.3, pro calcitonin 0.51. CBC w/ WBC of 12.7, normal platelets. CT chest abdomen pelvis demonstrated infiltrate in the left posterior lung base suspicious for PNA. CTH w/o acute intracranial findings. CXR demonstrated pulmonary vascular congestion. Patient was initiated on cefepime and vancomycin, ordered 1L NS at [facility]. Patient was intubated at [facility] and was transferred to [facility] MICU for further evaluation and management. Patient was seen and examined at the bedside. Patient intubated and sedated. Medical History[1] Surgical History[2] Family History[3] Social History Socioeconomic History Marital status: Spouse name: Not on file Number of children: Not on file Years of education: Not on file Highest education level: Not on file Occupational History Not on file Tobacco Use Smoking status: Former Current packs/day: 0.25 Average packs/day: 0.3 packs/day for 53.0 years (13.2 ttl pk-yrs) Types: Cigarettes Start date: 1972 Smokeless tobacco: Never Tobacco comments: 8 cig daily Substance and Sexual Activity Alcohol use: Yes Alcohol/week: 7.0 standard drinks of alcohol Types: 7 Cans of beer per week Comment: once beer daily Drug use: Never Sexual activity: Not on file Other Topics Concern Not on file Social History Narrative Not on file Social Drivers of Health Financial Resource Strain: Low Risk (09/11/2024) Overall Financial Resource Strain (CARDIA) Difficulty of Paying Living Expenses: Not very hard Food Insecurity: No Food Insecurity (09/11/2024) Hunger Vital Sign Worried About Running Out of Food in the Last Year: Never true Ran Out of Food in the Last Year: Never true Transportation Needs: No Transportation Needs (11/02/2024) PRAPARE - Transportation Lack of Transportation (Medical): No Lack of Transportation (Non-Medical): No Physical Activity: Inactive (09/11/2024) Exercise Vital Sign Days of Exercise per Week: 0 days Minutes of Exercise per Session: 0 min Stress: No Stress Concern Present (09/11/2024) Citizen Of [place] of Occupational Health - Occupational Stress Questionnaire Feeling of Stress : Not at all Social Connections: Socially Isolated (09/11/2024) Social Connection and Isolation Panel [NHANES] Frequency of Communication with Friends and Family: Never Frequency of Social Gatherings with Friends and Family: Never Attends Zoroastrian Services: Never Active Member of Clubs or Organizations: No Attends Club or Organization Meetings: Never Marital Status: Intimate Partner Violence: Not At Risk (11/02/2024) Humiliation, Afraid, Rape, and Kick questionnaire Fear of Current or Ex-Partner: No Emotionally Abused: No Physically Abused: No Sexually Abused: No Housing Stability: Low Risk (11/02/2024) Housing Stability Vital Sign Unable to Pay for Housing in the Last Year: No Number of Times Moved in the Last Year: 0 Homeless in the Last Year: No Allergies[4] Prior to Admission medications Medication Sig Start Date End Date Taking? Authorizing Provider albuterol (2.5 MG/3ML) 0.083% nebulizer solution Take 3 mL (2.5 mg) by nebulization as needed for wheezing or shortness of breath. 09/28/24 Olya Nunes MD apixaban (Eliquis) 5 MG tablet Take 1 tablet (5 mg) by mouth 2 times daily. 09/16/24 Tio Davis MD dapagliflozin (Farxiga) 5 MG tablet Take 1 tablet (5 mg) by mouth daily. 09/17/24 09/17/25 Toi Davis MD Necojevsier-Jnkxxlrye-Yscjnx (Trelegy Ellipta) 100-62.5-25 MCG/ACT aerosol powder Inhale 1 puff daily. Patient not taking: Reported on 10/14/2024 04/15/24 Bryan Tracey MD folic acid (Folvite) 1 MG tablet TAKE 1 TABLET (1,000 MCG) BY MOUTH EVERY MORNING. 03/15/25 Toi Davis MD losartan (Cozaar) 25 MG tablet TAKE 1 TABLET BY MOUTH EVERY DAY 03/15/25 Toi Davis MD metoprolol succinate XL (Toprol-XL) 100 MG 24 hr tablet TAKE 1 TABLET BY MOUTH 2 TIMES DAILY. DO NOT CRUSH OR CHEW. 03/16/25 Toi Davis MD montelukast (Singulair) 10 MG tablet TAKE 1 TABLET BY MOUTH EVERY DAY NIGHTLY 03/18/25 Toi Davis MD rosuvastatin (Crestor) 40 MG tablet TAKE 1 TABLET BY MOUTH EVERY DAY 05/17/25 Toi Davis MD sertraline (Zoloft) 100 MG tablet TAKE 1 TABLET BY MOUTH EVERY DAY 01/12/25 Pedro Subramanian MD spironolactone (Aldactone) 25 MG tablet TAKE 1 TABLET BY MOUTH EVERY DAY 05/17/25 Toi Davis MD torsemide (Demadex) 20 MG tablet TAKE 2 TABLETS (40 MG) BY MOUTH 2 TIMES DAILY. 01/06/25 Pedro Subramanian MD rosuvastatin (Crestor) 40 MG tablet Take 1 tablet (40 mg) by mouth daily. 09/16/24 05/17/25 Toi Davis MD spironolactone (Aldactone) 25 MG tablet Take 1 tablet (25 mg) by mouth daily. 09/16/24 05/17/25 Toi Davis MD Objective: Oxygen Delivery: VITALS: BP 108/62 Pulse 78 Temp (!) 39 C (102.2 F) (Axillary) Resp 24 SpO2 (!) 84% CURRENT PULSE OXIMETRY: SpO2: (!) 84 % Review of Systems Unable to obtain ROS, Patient intubated/sedated Constitutional: General Appearance []WDWN []Obese []Cachectic []Thin [x]Ill Eyes: Inspection of Pupils/Irises Pupils round and react: [x]Yes []No Sclera: []Icteric [x]Non-Icteric Inspection of Conjunctiva/Lids Conjunctiva: []Injected [x]Non-Injected Lids: [x]Intact []Lesion Present ENT/Mouth: External Inspection of ears/nose [] Normal [] Scar/Lesion/Mass Inspection of teeth/lips/gums Dentition: [][place] Teeth []Dentures Lips/Gums: []Intact []Lesion Present Mucosa: [x][place] [x]Moist []Dry Neck: External Appearance Overall Appearance: []Normal []Lesion/Mass/Crepitus Present Trachea midline: [x]Yes []No Thyroid [x]Normal []Enlarged []Tender []Mass []Absent Respiratory: Respiratory effort []Labored []Non-Labored [x] Mechanically-Ventilated Auscultation [x]Clear []Crackles []Wheezes [][place] Cardiovascular: Auscultation Rate: [x]Regular []Irregular []Tachycardia []Bradycardia Rhythm: [x]Regular []Irregular Murmur: []Present [x]Absent Extremities Peripheral Edema: []Present [x]Absent Varicosities: []Present [x]Absent Gastrointestinal: Abdomen Palpation: [x]Soft []Firm []Tender [x]Non-Tender []Distended [x]Non-distended Mass: []Present [x]Absent Bowel Sounds: [x]Present []Absent Hernia: []Present [x]Absent Liver/Spleen: []Hepatosplenomegaly []Organomegaly Absent Musculoskeletal: Inspection of Digits and Nails Cyanosis: []Present [x]Absent Clubbing: []Present [x]Absent Ischemia: []Present [x]Absent Infection: []Present [x]Absent Extremities MOCTEZUMA Equally: Except ([]RUE []RLE []LUE []LLE) Strength/Tone: Intact and Normal ([]RUE []RLE []LUE []LLE) Skin: Inspection [x]Normal []Rash []Lesion []Ulcer Palpation [x]Warm []Cool [x]Dry []Clammy []Nodules []Induration []Skin-tightening Cap-Refill: [] <3 sec [] >3 seconds (delayed) Neurologic: GCS EYE: 2 - Opens to pain GCS MOTOR: 4 - Withdraws from pain GCS VERBAL: 2 - Incomprehensible sounds Total GCS: 8 [] Sensation grossly intact Psych: Mental Status Alert: []Yes [x] No Oriented: [x]x0 []X1 []X2 []x3 Mood/Affect []Normal []Flat []Agitated []Depressed []Anxious []Calm [x]Sedated []NAD [facility] within last 24 hours- BMP: Recent Labs 05/20/25 2220 NA 121* K 3.6 CL 78* CO2 25 BUN 22 CREATININE 1.48* CALCIUM 9.4 MG 1.4* LFTs: Recent Labs 05/20/25 2220 AST 27 ALT 7 PROT 7.7 ALBUMIN 3.7 BILITOT 1.2* ALKPHOS 142 Glucose: Recent Labs 05/20/25 2220 GLUCOSE 140* Procal: Recent Labs 05/20/25 2220 PROCAL 0.51* CBC: Recent Labs 05/20/25 2220 WBC 12.7* HGB 17.0 16.4 15.7 HCT 43.6 PLT 171 MCV 85.0 RDW 11.9 ABGs: Recent Labs 05/20/25 2220 PHART 7.514* FDE4BSJ 32.7* PO2ART 431.2* HXA8CGO 25.7 [id number] Non-Invasive Ventilator Non-Invasive Ventilator Lactic Acid: Recent Labs 05/20/25 2220 LACTATE 3.3* INR: No results for input(s): "INR" in the last 72 hours. Cardiac Injury Profile: No results for input(s): "CKTOTAL", "CKMB", "TROPONINI" in the last 72 hours. Labs in Last 3 months: Lab Results Component Value Date TSH 0.60 09/11/2024 VITD25 17 (L) 07/17/2022 INR 1.2 (H) 09/12/2024 Microbiology- Urine Cx: No results found for: URINECX Blood Cx: Lab Results Component Value Date BLOODCX No growth at 5 days 08/19/2024 Sputum Cx: Lab Results Component Value Date RESPCULT No growth of normal respiratory elsa. 08/22/2024 RESPCULT Rare Staphylococcus aureus (A) 08/22/2024 Gram Stain: Lab Results Component Value Date LABGRAM Few Epithelial cells per low power field 08/22/2024 LABGRAM 08/22/2024 Many Polymorphonuclear leukocytes per low power field LABGRAM No organisms seen 08/22/2024 PNA PCR: Lab Results Component Value Date HUMANMETAPNE Not Detected 08/22/2024 COVID19: No results found for: COVID19 Legionella Ag: Lab Results Component Value Date LEGIONELLAPN Not Detected 08/22/2024 Strep Ag: No results for input(s): "STREPPNEUMO" in the last 72 hours. Imaging- CTA chest abdomen pelvis demonstrated infiltrate in left posterior lung base suspicious for PNA. Assessment and Plan: Active Problems: There are no active Hospital Problems. 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 Sedation w/ Propofol - Initiate broad spectrum abx w/ cefepime, vancomycin and doxycycline. Initiate hydrocortisone 100 mg IV q 12 hrs (CAPE COD) for severe CAP. Obtain blood culture. Check complete respiratory infectious micro labs including PNA PCR, RVP, nasal MRSA screen, sputum culture and urine ag for leg/strep. Check blood culture. - Continue Levo w/ MAP goal >65 - Trend Lactic acid until <2. S/P 1L NS at [facility] - Hyponatremia likely 2/2 hypovolemia. Serum/urine lytes consistent w/ hypovolemic hyponatremia. Results may be less accurate given recent crystalloid resuscitations at [facility], recommend repeating serum/urine chemistries in the am for more reliable assessment. Anticipate improvement in serum sodium w/ crystalloid resuscitations. - Check TSH and cortisol. BMP q 4. Goal Correction 6-8 mmol/L in 24 hrs - Pre-renal VIMAL, anticipate improvement w/ IVF resuscitations. If no improvement in am labs, consider checking FeUrea and renal US to r/o obstructive uropathy. - Additional 500 ml LR and 50g albumin x 1 - Hold home farxiga, losartan, spironolactone, torsemide in the setting of VIMAL - Complete work up for elevated anion gap w/ Volatile panel, serum salicylate/acetaminophen level - Possible seizure like activity at home w/ clenching of his fists w/ tremors. Initiate cEEG, consult neurology. Patient was loaded w/ keppra/phenobarb at [facility], initiate Keppra 100 mg IV BID. Seizure precautions, neuro checks q 4. - Continue home Toprol 100 mg BID, apixaban 5 mg BID, Rosuvastatin 40 mg daily, Singulair 10 mg nightly. - Parental thiamine and folic acid - NPO w/ enteral meds - Daily CBC/Mg/Phos/Ical SEP-1 CORE MEASURE DATA SIRS Criteria Sepsis Criteria Severe Sepsis Criteria Septic Shock Criteria Must meet 2: [x] Temperature > 100.4 F (38 C) or < 96.8 F (36 C) [x] HR > 90 [x] RR > 20 [x] WBC > 12 or < 4 or 10% bands Must be confirmed or suspected to move forward with diagnosis of sepsis. Must select at least one: [x] Bacterial Infection Confirmed or Suspected. [] Viral Infection Confirmed or Suspected. [] Fungal Infection Confirmed or Suspected. [] No infection present. Patient does not meet criteria for Sepsis. Must meet 1: [x] Lactate > 2 or [] Signs of Organ Dysfunction: - SBP < 90 or MAP < 65 - Altered mental status - Creatinine > 2 or increased from baseline - Urine Output < 0.5 ml/kg/hr - Bilirubin > 2 - INR > 1.5 - Platelets < 100,000 - Acute Respiratory Failure as evidenced by new need for NIPPV or mechanical ventilation [] No criteria met for Severe Sepsis. Must meet 1: [] Lactate = or > 4 or [x] SBP < 90 or MAP < 65 for at least two readings in the first hour after fluid bolus administration [] No criteria met for Septic Shock. Patient Vitals from 05/20/25 2301 to 05/21/25 0000 BP Pulse Resp SpO2 Weight 05/20/25 2318 (!) 97/42 76 16 95 % -- 05/20/25 2332 108/66 78 24 (!) 84 % -- 05/20/25 2337 (!) 63/54 73 20 (!) 90 % -- 05/20/25 2340 -- 70 -- 95 % -- 05/20/25 2341 83/51 68 16 95 % 200 lb (90.7 kg) 05/20/25 2342 83/51 71 -- 95 % -- 05/20/25 2343 (!) 81/48 67 -- 95 % -- Recent Labs 05/20/25 2220 05/21/25 0148 05/21/25 0310 WBC 12.7* -- 30.9* LACTATE 3.3* -- -- CREATININE 1.48* 1.41* -- BILITOT 1.2* -- -- PLT 171 -- 161 Sepsis Identified at 2220 hours. Fluid Resuscitation Rational: Due to heart failure, ordered less than 30cc/kg actual body weight. Actual fluid amount given: 1000 mL Infection Source: Unknown Reassessment Exam: SEPSIS REASSESSMENT I re-examined the patient at the following date and time: 03:30 Vital Signs: Most updated vital signs reassessed. Cardiac examination significant for: Regular rate and rhythm Pulmonary examination significant for: Clear lung diggs Capillary refill is: 2 seconds Peripheral Pulse is: 2+ Skin is: Normal Jayna Bowling DO GI Prophylaxis: Pantoprazole IV DVT Prophylaxis: Full anticoagulation BMI Classification: There is no height or weight on file to calculate BMI. Disposition: Admit to ICU Critical Care Time: 45 Total critical care time caring for this patient with life threatening, unstable organ failure, including direct patient contact, management of life support systems, review of data including imaging and labs, discussions with other team members and physicians, excluding procedures. [1] Past Medical History: Diagnosis Date Alcohol consumption heavy 09/10/2015 stopped 3w ago Asthma Atrial fibrillation (HCC) CHF (congestive heart failure) (HCC) 01/31/2016 COPD (chronic obstructive pulmonary disease) (HCC) 09/10/2015 Cor, pulmonale, acute (CMS/HCC) (HCC) Deep venous thrombosis (HCC) 02/2016 Depression Hx of blood clots Obesity 09/10/2015 DELORES (obstructive sleep apnea) Pulmonary embolus (HCC) 6 16 Raynaud phenomenon 09/10/2015 Smoker 09/10/2015 [2] Past Surgical History: Procedure Laterality Date ABDOMINAL SURGERY BRONCHOSCOPY 02/25/2020 BRONCHOSCOPY (HISTORICAL) 02/25/2020 COLONOSCOPY 10/27/[address] CHEST ANGIOGRAM W AND/OR WO IV CONTRAST 07/12/2022 CT CHEST ANGIOGRAM W AND/OR WO IV CONTRAST 07/12/[address] IMAGING FINGER AMPUTATION Left HERNIA REPAIR NOSE SURGERY PACEMAKER (HISTORICAL) [3] Family History Problem Relation Name Age of Onset Asthma Father Congenital Anomaly Father Cancer Father Asthma Sister Heart disease Mother Heart disease Brother Pacemaker Mother Congenital Anomaly Sister Cancer Mother Diabetes Mother [4] No Known Allergies Cosigned by Michael Lange MD at 05/21/2025 4:24 AM EDT Associated attestation - Michael Lange MD - 05/21/2025 4:24 AM EDT I have personally performed a face to face diagnostic evaluation on this patient today on 05/21/25. Labs, imaging studies, and electronic medical record notes on [employer] have been reviewed by me. This note documented and discussed by the [x]us customs and border officer [x]Fellow [] ISABELLE reflects my history, exam and medical decision making. I have reviewed and agree with the care plan. Changes were made in the orders as necessary. ROS documentation was reviewed and negative unless otherwise stated in the HPI. My history, exam, assessment and plan are as follows: All reflect current medical decision making from 05/21/25. Physical Exam listed was completed in entirely on 05/21/25 and is unchanged except where noted. Critical care time spent excluding separately billable procedures is 31 minutes. Chief Complaint: Chief Complaint Patient presents with Respiratory Distress Pt coming in from home brought by [facility]. BS 147 by EMS. Pt lives at home alone and suppose to wear oxygen at home. EMS relates patient was found by ex today being minimally responsive and having difficulty breathing. Pt ex also relates pt may have taken 3 days worht of medication accidentally. Pt given solumedrol and duoneb in route. Additional pertinent interval history, ROS, and physical exam findings: Patient seen and examined. Sedated, intubated, pupils symmetric reactive Heart Reg rate Lungs diminished symmetric breath sounds Assessment and Plan: Septic shock Acute resp failure, LLL pneumonia Chronic resp failure on home O2 Acute encephalopathy Hyponatremia HFrEF 21%, biventricular failure has 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, Afib on eliquis Alcohol use disorder Seizure like activity per ER note VIMAL IVF/albumin boluses, broad spectrum abx, f/u resp and blood cultures Wean levophed as tolerated Monitor and replete electrolytes, BMP q4hrs Neuro checks, seizure precautions, cEEG, cont keppra, neuro CC Thiamine, folic acid Status: Critically ill Disposition: Admit to ICU documented in this encounter [facility] 05-22-2025 Note [facility] 05-22-2025 Note [facility] 05-22-2025 Note [facility] 05-22-2025 Emergency department Note MICU Ander Iyer / Resident Report called to Brenda AGRAWAL on T3 MICU at [facility] transport arrived at this time and refused to transport this patient stating they are unable to take intubated patient's that are also on drips. Critical Care transport contacted at this time to take patient to [facility] Pt was not placed in nonviolent restraints in [facility] EMERGENCY DEPARTMENT ENCOUNTER Pt Name: Krystina Markham Birthdate 1955 Date of evaluation: 05/20/2025 ED Provider: Prince Joseph DO CHIEF COMPLAINT Chief Complaint Patient presents with Respiratory Distress Pt coming in from home brought by [facility]. BS 147 by EMS. Pt lives at home alone and suppose to wear oxygen at home. EMS relates patient was found by ex today being minimally responsive and having difficulty breathing. Pt ex also relates pt may have taken 3 days worht of medication accidentally. Pt given solumedrol and duoneb in route. HISTORY OF PRESENT ILLNESS Krystina Markham is a 69 y.o. who presents to the emergency department with chief complaint of concern for respiratory distress. Ex- went to check on the patient today and he was found minimally responsive and having difficulty breathing. Apparently lives home alone and is supposed to wear oxygen at home due to history of COPD. Per EMS, ex- also was concerned that he might of taken too many of his home medications. EMS treated with CPAP placement, Solu-Medrol, and a DuoNeb treatment. However, they were concerned that he still seems quite altered despite that treatment and is posturing with his left arm. They were unable to get his left arm to relax to load him into the vehicle and notes that he is also clenching his fingers with slight tremor. Patient is supposed to be on Eliquis but it is unclear if he has been compliant with it. Nursing Notes were reviewed. REVIEW OF SYSTEMS Review of Systems Pertinent positives and negatives as per HPI PAST MEDICAL HISTORY Medical History[1] SURGICAL HISTORY Surgical History[2] CURRENT MEDICATIONS Previous Medications ALBUTEROL (2.5 MG/3ML) 0.083% NEBULIZER SOLUTION Take 3 mL (2.5 mg) by nebulization as needed for wheezing or shortness of breath. APIXABAN (ELIQUIS) 5 MG TABLET Take 1 tablet (5 mg) by mouth 2 times daily. DAPAGLIFLOZIN (FARXIGA) 5 MG TABLET Take 1 tablet (5 mg) by mouth daily. OCTUZWGMPLT-[id number]-EMVIEQ (TRELEGY ELLIPTA) 100-62.5-25 MCG/ACT AEROSOL POWDER Inhale 1 puff daily. FOLIC ACID (FOLVITE) 1 MG TABLET TAKE 1 TABLET (1,000 MCG) BY MOUTH EVERY MORNING. LOSARTAN (COZAAR) 25 MG TABLET TAKE 1 TABLET BY MOUTH EVERY DAY METOPROLOL SUCCINATE XL (TOPROL-XL) 100 MG 24 HR TABLET TAKE 1 TABLET BY MOUTH 2 TIMES DAILY. DO NOT CRUSH OR CHEW. MONTELUKAST (SINGULAIR) 10 MG TABLET TAKE 1 TABLET BY MOUTH EVERY DAY NIGHTLY ROSUVASTATIN (CRESTOR) 40 MG TABLET TAKE 1 TABLET BY MOUTH EVERY DAY SERTRALINE (ZOLOFT) 100 MG TABLET TAKE 1 TABLET BY MOUTH EVERY DAY SPIRONOLACTONE (ALDACTONE) 25 MG TABLET TAKE 1 TABLET BY MOUTH EVERY DAY TORSEMIDE (DEMADEX) 20 MG TABLET TAKE 2 TABLETS (40 MG) BY MOUTH 2 TIMES DAILY. ALLERGIES Patient has no known allergies. FAMILY HISTORY Family History[3] SOCIAL HISTORY Social History[4] PHYSICAL EXAM ED Triage Vitals Temp Heart Rate Resp BP 05/20/25221505/20/25 2211 05/20/25 22105/20/25 2211 (!) 39 C (102.2 F) 78 18 139/84 SpO2 Temp Source Heart Rate Source Patient Position 05/20/25 2211 05/20/25 22105/20/25 2211 05/20/25 2211 93 % Axillary Monitor Sitting BP Location FiO2 (%) 05/20/25 22105/20/25 2224 Right arm 100 % Physical Exam Vitals and nursing note reviewed. Constitutional: General: He is in acute distress. Appearance: He is ill-appearing and diaphoretic. HENT: Mouth/Throat: Mouth: Mucous membranes are dry. Eyes: Comments: Pupils 3 mm. Unable to check EOM due to patient not tracking. Cardiovascular: Rate and Rhythm: Normal rate. Rhythm irregular. Pulmonary: Effort: Respiratory distress present. Breath sounds: Rhonchi present. Comments: Retractions noted. Abdominal: Palpations: Abdomen is soft. Musculoskeletal: General: No swelling or deformity. Cervical back: Neck supple. Skin: General: Skin is warm. Capillary Refill: Capillary refill takes 2 to 3 seconds. Coloration: Skin is not jaundiced. Neurological: Comments: GCS 9. Not producing meaningful verbal response. Withdrawing to very painful stimuli. Not following simple commands. Left arm held in extension at the elbow joint and slight abduction of the shoulder joint. Fingers are clenched. There is a tremor of the left arm. No facial droop. DIAGNOSTIC RESULTS RADIOLOGY (Per Emergency Physician): Interpretation per the Radiologist below, if available at the time of this note: XR chest 1 view Final Result Central venous catheter in adequate position without pneumothorax Report Dictated on Electronically Signed By: Gunner Moreno MD Electronically Signed Date/Time: 05/21/2025 12:26 AM EDT XR chest 1 view Final Result Endotracheal tube and nasogastric tube in adequate position. Atelectasis at the left lung base with left pleural fluid Report Dictated on Electronically Signed By: Gunner Moreno MD Electronically Signed Date/Time: 05/21/2025 12:[address] chest abdomen pelvis without contrast Final Result Infiltrate in the left posterior lung base suspicious for pneumonia. Again seen are compression fractures of T6-T8. Interval development of a compression fracture of T9. Report Dictated on Electronically Signed By: Paul Leiva MD Electronically Signed Date/Time: 05/20/2025 11:[address] head wo IV contrast Final Result 1. No acute intracranial findings. 2. Probable chronic ischemic and atrophic changes. Report Dictated on Electronically Signed By: Alirio Gamboa MD Electronically Signed Date/Time: 05/20/2025 11:15 PM EDT XR chest 1 view Final Result 1. Findings compatible with vascular congestion. 2.. Findings which may represent left basilar atelectasis, mild infiltrate(s) or postinflammatory change and small left pleural effusion, new in the interval. Report Dictated on Electronically Signed By: Alirio Gamboa MD Electronically Signed Date/Time: 05/20/2025 10:36 PM EDT LABS: Labs Reviewed BLOOD GAS, VENOUS - Abnormal Result Value pH, Venous 7.428 (*) pCO2, Venous 47.2 pO2, Venous 34.5 HCO3, Venous 30.5 (*) O2 Sat, Venous 64.7 Base Excess, Venous 5.0 (*) Hgb, blood gas 17.0 TCO2, Venous 31.9 (*) Source Of Oxygen Non-Invasive Ventilator Amount Of Oxygen 100 Narrative: Assessment of oxygenation is best done with an arterial blood gas determination. Reference ranges for pO2, bicarbonate, and base excess are for mixed venous blood. Specimens drawn from a peripheral vein will often have higher values. BLOOD GAS ARTERIAL - Abnormal pH, Arterial 7.514 (*) pCO2, Arterial 32.7 (*) pO2, Arterial 431.2 (*) HCO3, Arterial 25.7 O2 Sat, Arterial 99.6 (*) Base Excess, Arterial 3.5 (*) CO2 Total 26.7 Hgb, blood gas 16.4 Source Of Oxygen Non-Invasive Ventilator Amount Of Oxygen 100 LACTIC ACID WITH REFLEX - Abnormal LACTIC ACID 3.3 (*) COMPREHENSIVE METABOLIC PANEL - Abnormal SODIUM 121 (*) POTASSIUM 3.6 CHLORIDE 78 (*) CARBON DIOXIDE 25 ANION GAP 18 (*) UREA NITROGEN 22 CREATININE 1.48 (*) GLUCOSE 140 (*) CALCIUM 9.4 AST (SGOT) 27 ALT 7 ALKALINE PHOSPHATASE 142 ALBUMIN 3.7 BILIRUBIN, TOTAL 1.2 (*) TOTAL PROTEIN 7.7 eGFR 51.2 (*) CBC WITH AUTO DIFFERENTIAL - Abnormal Auto WBC 12.7 (*) RBC 5.13 Hemoglobin 15.7 Hematocrit 43.6 MCV 85.0 MCH 30.6 MCHC 36.0 RDW 11.9 Platelets 171 MPV 9.8 MAGNESIUM - Abnormal MAGNESIUM 1.4 (*) Narrative: Higher values can be expected in females during menses. HIGH SENSITIVITY TROPONIN, SERIAL BASELINE - Abnormal Troponin HS Serial Baseline 61 (*) NT PRO BNP - Abnormal NT PRO BNP 7,094 (*) PROCALCITONIN TEST - Abnormal PROCALCITONIN 0.51 (*) Narrative: PCT <0.50 = Low risk of severe sepsis and/or septic shock. PCT >2.00 = High risk of severe sepsis and/or septic shock. MANUAL DIFFERENTIAL (CELLAVISION) - Abnormal RBC Morphology Normal Neutrophils % 93 (*) Bands % 7 (*) Lymphocytes % 0 (*) Monocytes % 0 (*) Absolute Neutrophil Count 12.7 (*) Bands Absolute 0.9 (*) Lymphocytes Absolute 0.0 (*) Monocytes Absolute 0.0 Neutrophils Manual 96 Lymphocytes Manual 0 Monocytes Manual 0 Eosinophils Manual Basophils Manual Bands Manual 7 Metamyelocytes Manual Myelocytes Manual Promyelocytes Manual Blasts Manual Atypical Lymphocytes Manual Unclassified Cells, Manual OSMOLALITY, URINE - Abnormal OSMOLALITY, URINE 244 (*) COMPLETE URINALYSIS WITH REFLEX TO CULTURE - Abnormal Color, Urine Yellow Clarity, Urine Turbid (*) pH, Urine 5.5 Leukocytes, Urine Negative Nitrite, Urine Negative Protein, Urine 70 (*) Glucose, Urine 500 (*) Bilirubin, Urine Negative Ketones, Urine Negative Urobilinogen, Urine Normal Blood, Urine 0.06 (*) RBC, Urine 3-5 (*) WBC, Urine 3-5 Squamous Epithelial, Urine 0-2 Non-Squamous Epithalial Cells, Urine 0-2 (*) Bacteria, Urine Few (*) Mucus, Urine Few Amorphous Crystals, Urine Few (*) Hyaline Casts, Urine 0-2 (*) Granular Casts, Urine 0-2 (*) SPECIFIC GRAVITY OF URINE (NUMERIC) 1.009 Narrative: A specimen with <=10 WBC is not consistent with inflammation. This specimen will not reflex to a urine culture. SARS-COV-2, FLU A/B, AND RSV COMBO - Normal SARS-CoV-2 Not Detected Respiratory Syncytial Virus Not Detected Influenza A Not Detected Influenza B Not Detected Narrative: Methodology: real-time, RT-PCR The SARS-CoV-2, Flu A/B, and RSV Combo assay is intended for in vitro diagnostic use under the FDA Emergency Use Authorization (EUA). This test has not been FDA cleared or approved. In compliance with this authorization, please visit www.fda.gov/media/329711/download or www.fda.gov/media/442512/download to access the applicable information sheets. BILIRUBIN, DIRECT - Normal BILIRUBIN, DIRECT 0.4 ETHANOL - Normal ETHANOL IN SER/PLAS <10 Narrative: SHEARING MACHINE FEEDER depression is seen >100 mg/dL. NOTE: This result is for medical treatment only. Analysis performed using non-forensic procedures. PHOSPHORUS - Normal PHOSPHORUS 2.4 THYROID STIMULATING HORMONE - Normal THYROID STIMULATING HORMONE 0.57 BLOOD CULTURE BLOOD CULTURE RESPIRATORY PATHOGENS PANEL BY PCR LEGIONELLA AND STREPTOCOCCUS URINE ANTIGEN, ORDERABLE Narrative: The following orders were created for panel order Legionella and Streptococcus Urine Antigen. Procedure Abnormality Status --------- ------ Legionella and Streptoco...[[id number]] Urine Hold Cup[[id number]] In process Please view results for these tests on the individual orders. RESPIRATORY CULTURE AND STAIN PNEUMONIA PCR PANEL LEGIONELLA AND STREPTOCOCCUS URINE ANTIGEN, ORDERABLE Narrative: The following orders were created for panel order Legionella and Streptococcus Urine Antigen. Procedure Abnormality Status --------- ------ Legionella and Streptoco...[[id number]] In process Urine Hold Cup[[id number]] In process Please view results for these tests on the individual orders. LEGIONELLA AND STREPTOCOCCUS URINE ANTIGEN SODIUM, URINE, RANDOM SODIUM, URINE <20 CREATININE, URINE 82.6 SODIUM, URINE, FRACTIONAL EXCRETION <0.3 SODIUM, URINE, TUBULAR REABSORPTION >1.0 DRUGS OF ABUSE AMPHETAMINE SCREEN Negative BARBITURATES SCREEN Negative BENZODIAZEPINE SCREEN Negative COCAINE METAB. SCREEN Negative METHADONE SCREEN Negative OPIATES SCREEN Negative OXYCODONE SCREEN Negative PHENCYCLIDINE SCREEN Negative FENTANYL SCREEN, UR QUAL Negative Narrative: The expected value for all of the drugs listed above is Negative. The following drugs or drug groups have been screened for by Immunoassay at the following thresholds: Amphetamine class (1000 ng/mL) Barbiturates (200 ng/mL) Benzodiazepines (200 ng/mL) Cocaine (300 ng/mL) Methadone (300 ng/mL) Opiates (300 ng/mL) Oxycodone (100 ng/mL) PCP (25 ng/mL) Fentanyl (1.0 ng/ml) NOTE: These results are for medical treatment only. Analysis performed using non-forensic procedures. POSITIVE results are NOT confirmed by a more specific alternative method unless requested. If confirmation is needed, request confirmation under separate order. HIGH SENSITIVITY TROPONIN, SERIAL, SECOND TEST LACTIC ACID WITH REFLEX OSMOLALITY, SERUM VOLATILE PANEL,SERUM CK TRIGLYCERIDES CALCIUM, IONIZED CBC WITH AUTO DIFFERENTIAL MAGNESIUM PHOSPHORUS BASIC METABOLIC PANEL BASIC METABOLIC PANEL CORTISOL URINE HOLD CUP URINE HOLD CUP All other labs were within normal range or not returned as of this dictation. EMERGENCY DEPARTMENT COURSE and DIFFERENTIAL DIAGNOSIS/MDM: Vitals: Vitals: 05/21/25 0009 05/21/25 0024 05/21/25 0028 05/21/25 0043 BP: 100/59 125/69 103/64 BP Location: Right arm Right arm Right arm Patient Position: Lying Lying Lying Pulse: 64 60 60 Resp: 16 16 16 Temp: (!) 39 C (102.2 F) TempSrc: SpO2: 95% 96% 98% Weight: PF: Medications vancomycin (Vancocin) 1750 mg in NS 500 mL IVPB (premix) (1,750 mg IntraVENous New Bag 05/21/25 0038) cefepime (Maxipime) 2,000 mg in sodium chloride 0.9 % 50 mL IVPB Mini-Bag Plus (0 mg IntraVENous Stopped 05/20/253) mupirocin (Bactroban) 2 % ointment 1 Application (1 Application Nasal Not Given 05/21/25 0042) ondansetron ODT (Zofran-ODT) disintegrating tablet 4 mg (has no administration in time range) Or ondansetron (Zofran) injection 4 mg (has no administration in time range) midazolam (Versed) injection 2 mg (has no administration in time range) midazolam (Versed) injection 1 mg (has no administration in time range) fentaNYL (Sublimaze) injection 50 mcg (has no administration in time range) fentaNYL (Sublimaze) injection 25 mcg (has no administration in time range) naloxone (Narcan) injection 0.4 mg (has no administration in time range) flumazenil (Romazicon) injection 0.2 mg (has no administration in time range) propofol (Diprivan) infusion (10 mcg/kg/min 90.7 kg IntraVENous New Bag 05/20/252347) magnesium sulfate IVPB premix 2,000 mg (has no administration in time range) pantoprazole (ProtoNix) 40 mg in sodium chloride (PF) 0.9 % 10 mL injection (40 mg IntraVENous Given 05/21/25 003) norepinephrine (Levophed) infusion 16 mg in 0.9 % sodium chloride 250 mL (Cms-Kolozx-Juxfb) (premix) (has no administration in time range) acetaminophen (Tylenol) suppository 650 mg (650 mg Rectal Given 05/21/25 0028) ipratropium-albuterol (Duo-Neb) 0.5-2.5 mg/3 mL nebulizer solution 3 mL (3 mL Nebulization Given 05/20/252234) ipratropium-albuterol (Duo-Neb) 0.5-2.5 mg/3 mL nebulizer solution 3 mL (3 mL Nebulization Given 05/20/252229) thiamine (Vitamin B1) injection 100 mg (100 mg IntraVENous Given 05/21/25 0017) levETIRAcetam in sodium chloride (Keppra) IVPB 1,000 mg (0 mg IntraVENous Stopped 05/21/25 0038) PHENobarbital (Luminal) injection 130 mg (130 mg IntraVENous Given 05/20/25 2321) Phenylephrine HCl (Pressors) 1 MG/10ML injection - Pyxis ADS Override Pull (0.3 mg Given 05/20/25 2344) ketamine injection 100 mg (100 mg IntraVENous Given 05/20/25 2332) rocuronium (ZeMuron) injection 80 mg (80 mg IntraVENous Given 05/20/25 2333) sodium chloride 0.9 % bolus 1,000 mL (0 mL IntraVENous Stopped 05/20/25 2359) norepinephrine (Levophed) infusion 16 mg in 0.9 % sodium chloride 250 mL (Gcq-Pdrhyt-Tvcpm) (premix) - Pyxis ADS Override Pull (10 mcg/min Rate/Dose Change 05/21/25 003) Patient presented with initial concern for respiratory distress. Patient's former partner checks on him occasionally and found him to be having breathing difficulties and called EMS. EMS started CPAP because of known history of tobacco abuse and prior episodes of hypercapnic respiratory failure. However, patient was quite altered as well. His GCS was 8-9 initially. He was also posturing with his left arm and had a tremor. Not responding to any meaningful stimuli not producing any meaningful verbal response as well. This is in the setting of known history of alcohol abuse. Further, the blood gases do not suggest hypercapnic respiratory failure. His oxygen levels are appropriate. Therefore, strong suspicion initially for intracranial process. CT imaging expedited. No signs of acute cranial process. In the interim, based on additional lab results as well as history, strong suspicion for alcohol withdrawal with seizures and either prolonged postictal state versus status epilepticus. Treated initially with thiamine and phenobarbital due to strong suspicion for alcohol withdrawal. Keppra also added. He did have episodes of hypotension but cuff pressures were irregular so initially monitored closely. We did establish central line to start pressors if needed. Of note, he also presented significantly febrile and his imaging does show left lower lobe pneumonia. Treated with broad-spectrum antibiotics. Cultures obtained. Discussed patient's case with ICU on-call. They excepted patient. Will be transferred to [facility] due to strong likelihood of needing continuous EEG. Transportation will be arranged. CORE MEASURE DATA SIRS Criteria Sepsis Criteria Severe Sepsis Criteria Septic Shock Criteria Must meet 2: [x] Temperature > 100.4 F (38 C) or < 96.8 F (36 C) [] HR > 90 [x] RR > 20 [x] WBC > 12 or < 4 or 10% bands Must be confirmed or suspected to move forward with diagnosis of sepsis. Must select at least one: [x] Bacterial Infection Confirmed or Suspected. [] Viral Infection Confirmed or Suspected. [] Fungal Infection Confirmed or Suspected. [] No infection present. Patient does not meet criteria for Sepsis. Must meet 1: [x] Lactate > 2 or [] Signs of Organ Dysfunction: - SBP < 90 or MAP < 65 - Altered mental status - Creatinine > 2 or increased from baseline - Urine Output < 0.5 ml/kg/hr - Bilirubin > 2 - INR > 1.5 - Platelets < 100,000 - Acute Respiratory Failure as evidenced by new need for NIPPV or mechanical ventilation [] No criteria met for Severe Sepsis. Must meet 1: [] Lactate = or > 4 or [] SBP < 90 or MAP < 65 for at least two readings in the first hour after fluid bolus administration [x] No criteria met for Septic Shock. Patient Vitals from 05/20/25 2301 to 05/21/25 0000 BP Pulse Resp SpO2 Weight 05/20/25 2318 (!) 97/42 76 16 95 % -- 05/20/25 2332 108/66 78 24 (!) 84 % -- 05/20/25 2337 (!) 63/54 73 20 (!) 90 % -- 05/20/25 2340 -- 70 -- 95 % -- 05/20/25 2341 83/51 68 16 95 % 90.7 kg (200 lb) 05/20/25 2342 83/51 71 -- 95 % -- 05/20/25 2343 (!) 81/48 67 -- 95 % -- Recent Labs 05/20/25 2220 WBC 12.7* LACTATE 3.3* CREATININE 1.48* BILITOT 1.2* PLT 171 Sepsis Identified at 2230. Fluid Resuscitation Rational: Due to heart failure, ordered less than 30cc/kg actual body weight. Actual fluid amount given: 2000 mL Infection Source: Pulmonary - Community Acquired Reassessment Exam: Not applicable. Patient does not have Septic Shock. CRITICAL CARE TIME Total Critical Care time was 55 minutes, excluding separately reportable procedures. There was a high probability of clinically significant/life threatening deterioration in the patient's condition which required my urgent intervention. FINAL IMPRESSION 1. Acute metabolic encephalopathy 2. Acute respiratory failure with hypoxia (HCC) 3. Severe sepsis (HCC) 4. Pneumonia of left lower lobe due to infectious organism 5. Seizure-like activity (HCC) 6. Alcohol withdrawal syndrome, with delirium (HCC) 7. Hyponatremia DISPOSITION Admit 05/20/2025 11:38:49 PM PATIENT REFERRED TO: No follow-up provider specified. DISCHARGE MEDICATIONS: New Prescriptions No medications on file (Comment: Please note this report has been produced using speech recognition software and may contain errors related to that system including errors in grammar, punctuation, and spelling, as well as words and phrases that may be inappropriate. If there are any questions or concerns please feel free to contact the dictating provider for clarification.) Prince Joseph DO (electronically signed) Emergency Medicine Provider [1] Past Medical History: Diagnosis Date Alcohol consumption heavy 09/10/2015 stopped 3w ago Asthma Atrial fibrillation (HCC) CHF (congestive heart failure) (HCC) 01/31/2016 COPD (chronic obstructive pulmonary disease) (HCC) 09/10/2015 Cor, pulmonale, acute (CMS/HCC) (HCC) Deep venous thrombosis (HCC) 02/2016 Depression Hx of blood clots Obesity 09/10/2015 DELORES (obstructive sleep apnea) Pulmonary embolus ([facility]) 6 16 Raynaud phenomenon 09/10/2015 Smoker 09/10/2015 [2] Past Surgical History: Procedure Laterality Date ABDOMINAL SURGERY BRONCHOSCOPY 02/25/2020 BRONCHOSCOPY (HISTORICAL) 02/25/2020 COLONOSCOPY 10/27/[address] CHEST ANGIOGRAM W AND/OR WO IV CONTRAST 07/12/2022 CT CHEST ANGIOGRAM W AND/OR WO IV CONTRAST 07/12/2022 [facility] CT IMAGING FINGER AMPUTATION Left HERNIA REPAIR NOSE SURGERY PACEMAKER (HISTORICAL) [3] Family History Problem Relation Name Age of Onset Asthma Father Congenital Anomaly Father Cancer Father Asthma Sister Heart disease Mother Heart disease Brother Pacemaker Mother Congenital Anomaly Sister Cancer Mother Diabetes Mother [4] Social History Socioeconomic History Marital status: Tobacco Use Smoking status: Former Current packs/day: 0.25 Average packs/day: 0.3 packs/day for 53.0 years (13.2 ttl pk-yrs) Types: Cigarettes Start date: 1972 Smokeless tobacco: Never Tobacco comments: 8 cig daily Substance and Sexual Activity Alcohol use: Yes Alcohol/week: 7.0 standard drinks of alcohol Types: 7 Cans of beer per week Comment: once beer daily Drug use: Never Social Drivers of Health Financial Resource Strain: Low Risk (09/11/2024) Overall Financial Resource Strain (CARDIA) Difficulty of Paying Living Expenses: Not very hard Food Insecurity: No Food Insecurity (09/11/2024) Hunger Vital Sign Worried About Running Out of Food in the Last Year: Never true Ran Out of Food in the Last Year: Never true Transportation Needs: No Transportation Needs (11/02/2024) PRAPARE - Transportation Lack of Transportation (Medical): No Lack of Transportation (Non-Medical): No Physical Activity: Inactive (09/11/2024) Exercise Vital Sign Days of Exercise per Week: 0 days Minutes of Exercise per Session: 0 min Stress: No Stress Concern Present (09/11/2024) Citizen Of [place] of Occupational Health - Occupational Stress Questionnaire Feeling of Stress : Not at all Social Connections: Socially Isolated (09/11/2024) Social Connection and Isolation Panel [NHANES] Frequency of Communication with Friends and Family: Never Frequency of Social Gatherings with Friends and Family: Never Attends Zoroastrian Services: Never Active Member of Clubs or Organizations: No Attends Club or Organization Meetings: Never Marital Status: Intimate Partner Violence: Not At Risk (11/02/2024) Humiliation, Afraid, Rape, and Kick questionnaire Fear of Current or Ex-Partner: No Emotionally Abused: No Physically Abused: No Sexually Abused: No Housing Stability: Low Risk (11/02/2024) Housing Stability Vital Sign Unable to Pay for Housing in the Last Year: No Number of Times Moved in the Last Year: 0 Homeless in the Last Year: No Prince Joseph DO 05/21/25 0102 documented in this encounter [facility] 05-21-2025 Note [facility] 05-21-2025 Note Pt was not placed in nonviolent restraints in [facility] 05-17-2025 Telephone encounter Note Last office visit: 09/28/24 Next office visit: none [facility] 05-17-2025 Miscellaneous Notes Last office visit: 09/28/24 Next office visit: none documented in this encounter [facility] 03-18-2025 Telephone encounter Note Last office visit: 09/28/24 Next office visit: none [facility] 03-18-2025 Miscellaneous Notes Last office visit: 09/28/24 Next office visit: none documented in this encounter [facility] 03-12-2025 Telephone encounter Note Last office visit: 09/28/2024 Next office visit: None [facility] 03-12-2025 Miscellaneous Notes Last office visit: 09/28/2024 Next office visit: None documented in this encounter [facility] 03-12-2025 Telephone encounter Note Last office visit: 09/28/2024 Next office visit: None [facility] 03-12-2025 Miscellaneous Notes Last office visit: 09/28/2024 Next office visit: None documented in this encounter [facility] 01-11-2025 Telephone encounter Note Last office visit: 09/28/24 Next office visit: none [facility] 01-11-2025 Miscellaneous Notes Last office visit: 09/28/24 Next office visit: none documented in this encounter [facility] 11-05-2024 Telephone encounter Note [facility] clinician form/checklist was signed and dated by Dr. Karthik Mendoza on 11-02-2024 and was faxed to [facility] MRI Department on 11-05-2024. [facility] 11-05-2024 Miscellaneous Notes [facility] clinician form/checklist was signed and dated by Dr. Karthik Mendoza on 11-02-2024 and was faxed to [facility] MRI Department on 11-05-2024. documented in this encounter [facility] 11-03-2024 Nurse Note Discharge instructions given to patient. Verbalizes understanding. IV removed. Awaiting ride. Nicky Crowder RN 11/03/2024 5:27 PM [facility] 11-03-2024 Plan of care note Problem: Neurosensory - Adult Goal: Achieves stable or improved neurological status 11/03/20241725 by Rossi Crowder RN Outcome: Completed 11/03/2024 1726 by Rossi Crowder RN Outcome: Adequate for Discharge 11/03/2024 1517 by Rossi Crowder RN Outcome: Progressing Problem: Cardiovascular - Adult Goal: Maintains optimal cardiac output and hemodynamic stability 11/03/20241725 by Rossi Crowder RN Outcome: Completed 11/03/20241725 by Rossi Crowder RN Outcome: Adequate for Discharge 11/03/2024 151 by Rossi Crowder RN Outcome: Progressing Goal: Absence of cardiac dysrhythmias or at baseline 11/03/20241725 by Rossi Crowder RN Outcome: Completed 11/03/20241725 by Rossi Crowder RN Outcome: Adequate for Discharge Problem: Pain - Adult Goal: Verbalizes/displays adequate comfort level or baseline comfort level 11/03/20241725 by Rossi Crowder RN Outcome: Completed 11/03/20241725 by Rossi Crowder RN Outcome: Adequate for Discharge 11/03/20241516 by Rossi Crowder RN Outcome: Progressing Problem: Safety - Adult Goal: Free from fall injury 11/03/20241725 by Rossi Crowder RN Outcome: Completed 11/03/20241725 by Rossi Crowder RN Outcome: Adequate for Discharge Problem: Discharge Planning Goal: Discharge to home or other facility with appropriate resources 11/03/20241725 by Rossi Crowder RN Outcome: Completed 11/03/20241725 by Rossi Crowder RN Outcome: Adequate for Discharge Problem: Chronic Conditions and Co-morbidities Goal: Patient's chronic conditions and co-morbidity symptoms are monitored and maintained or improved 11/03/20241725 by Rossi Crowder RN Outcome: Completed 11/03/20241725 by Rossi Crowder RN Outcome: Adequate for Discharge Problem: Knowledge Deficit Goal: Patient/family/caregiver demonstrates understanding of disease process, treatment plan, medications, and discharge instructions 11/03/20241725 by Rossi Crowder RN Outcome: Completed 11/03/20241725 by Rossi Crowder RN Outcome: Adequate for Discharge Problem: Potential for Compromised Skin Integrity Goal: Skin Integrity is Maintained or Improved 11/03/20241725 by Rossi Crowder RN Outcome: Completed 11/03/20241725 by Rossi Crowder RN Outcome: Adequate for Discharge Goal: Nutritional status is improving 11/03/2024 172 by Rossi Crowder RN Outcome: Completed 11/03/2024 172 by Rossi Crowder RN Outcome: Adequate for Discharge Problem: Urinary Incontinence Goal: Perineal skin integrity is maintained or improved 11/03/2024 1726 by Rossi Crowder RN Outcome: Completed 11/03/2024 172 by Rossi Crowder RN Outcome: Adequate for Discharge [facility] 11-03-2024 Plan of care note Problem: Neurosensory - Adult Goal: Achieves stable or improved neurological status 11/03/2024 172 by Rossi Crowder RN Outcome: Adequate for Discharge 11/03/2024 1517 by Rossi Crowder RN Outcome: Progressing Problem: Cardiovascular - Adult Goal: Maintains optimal cardiac output and hemodynamic stability 11/03/2024 172 by Rossi Crowder RN Outcome: Adequate for Discharge 11/03/2024 1517 by Rossi Crowder RN Outcome: Progressing Goal: Absence of cardiac dysrhythmias or at baseline Outcome: Adequate for Discharge Problem: Pain - Adult Goal: Verbalizes/displays adequate comfort level or baseline comfort level 11/03/2024 172 by Rossi Crowder RN Outcome: Adequate for Discharge 11/03/2024 1517 by Rossi Crowder RN Outcome: Progressing Problem: Safety - Adult Goal: Free from fall injury Outcome: Adequate for Discharge Problem: Discharge Planning Goal: Discharge to home or other facility with appropriate resources Outcome: Adequate for Discharge Problem: Chronic Conditions and Co-morbidities Goal: Patient's chronic conditions and co-morbidity symptoms are monitored and maintained or improved Outcome: Adequate for Discharge Problem: Knowledge Deficit Goal: Patient/family/caregiver demonstrates understanding of disease process, treatment plan, medications, and discharge instructions Outcome: Adequate for Discharge Problem: Potential for Compromised Skin Integrity Goal: Skin Integrity is Maintained or Improved Outcome: Adequate for Discharge Goal: Nutritional status is improving Outcome: Adequate for Discharge Problem: Urinary Incontinence Goal: Perineal skin integrity is maintained or improved Outcome: Adequate for Discharge [facility] 11-03-2024 Miscellaneous Notes Problem: Neurosensory - Adult Goal: Achieves stable or improved neurological status 11/03/20241725 by Rossi Crowder RN Outcome: Completed 11/03/20241725 by Rossi Crowder RN Outcome: Adequate for Discharge 11/03/2024 151 by Rossi Crowder RN Outcome: Progressing Problem: Cardiovascular - Adult Goal: Maintains optimal cardiac output and hemodynamic stability 11/03/2024 172 by Rossi Crowder RN Outcome: Completed 11/03/2024 172 by Rossi Crowder RN Outcome: Adequate for Discharge 11/03/2024 151 by Rossi Crowder RN Outcome: Progressing Goal: Absence of cardiac dysrhythmias or at baseline 11/03/20241725 by Rossi Crowder RN Outcome: Completed 11/03/20241725 by Rossi Crowder RN Outcome: Adequate for Discharge Problem: Pain - Adult Goal: Verbalizes/displays adequate comfort level or baseline comfort level 11/03/20241725 by Rossi Crowder RN Outcome: Completed 11/03/20241725 by Rossi Crowder RN Outcome: Adequate for Discharge 11/03/2024 151 by Rossi Crowder RN Outcome: Progressing Problem: Safety - Adult Goal: Free from fall injury 11/03/20241725 by Rossi Crowder RN Outcome: Completed 11/03/20241725 by Rossi Crowder RN Outcome: Adequate for Discharge Problem: Discharge Planning Goal: Discharge to home or other facility with appropriate resources 11/03/2024 172 by Rossi Crowder RN Outcome: Completed 11/03/2024 172 by Rosis Crowder RN Outcome: Adequate for Discharge Problem: Chronic Conditions and Co-morbidities Goal: Patient's chronic conditions and co-morbidity symptoms are monitored and maintained or improved 11/03/20241725 by Rossi Crowder RN Outcome: Completed 11/03/20241725 by Rossi Crowder RN Outcome: Adequate for Discharge Problem: Knowledge Deficit Goal: Patient/family/caregiver demonstrates understanding of disease process, treatment plan, medications, and discharge instructions 11/03/20241725 by Rossi Crowder RN Outcome: Completed 11/03/20241725 by Rossi Crowder RN Outcome: Adequate for Discharge Problem: Potential for Compromised Skin Integrity Goal: Skin Integrity is Maintained or Improved 11/03/20241725 by Rossi Crowder RN Outcome: Completed 11/03/20241725 by Rossi Crowder RN Outcome: Adequate for Discharge Goal: Nutritional status is improving 11/03/20241725 by Rossi Crowder RN Outcome: Completed 11/03/20241725 by Rossi Crowder RN Outcome: Adequate for Discharge Problem: Urinary Incontinence Goal: Perineal skin integrity is maintained or improved 11/03/20241725 by Rossi Crowder RN Outcome: Completed 11/03/20241725 by Rossi Crowder RN Outcome: Adequate for Discharge Problem: Neurosensory - Adult Goal: Achieves stable or improved neurological status 11/03/20241725 by Rossi Crowder RN Outcome: Adequate for Discharge 11/03/2024 151 by Rossi Crowder RN Outcome: Progressing Problem: Cardiovascular - Adult Goal: Maintains optimal cardiac output and hemodynamic stability 11/03/20241725 by Rossi Crowder RN Outcome: Adequate for Discharge 11/03/20241516 by Rossi Crowder RN Outcome: Progressing Goal: Absence of cardiac dysrhythmias or at baseline Outcome: Adequate for Discharge Problem: Pain - Adult Goal: Verbalizes/displays adequate comfort level or baseline comfort level 11/03/20241725 by Rossi Crowder RN Outcome: Adequate for Discharge 11/03/2024 151 by Rossi Crowder RN Outcome: Progressing Problem: Safety - Adult Goal: Free from fall injury Outcome: Adequate for Discharge Problem: Discharge Planning Goal: Discharge to home or other facility with appropriate resources Outcome: Adequate for Discharge Problem: Chronic Conditions and Co-morbidities Goal: Patient's chronic conditions and co-morbidity symptoms are monitored and maintained or improved Outcome: Adequate for Discharge Problem: Knowledge Deficit Goal: Patient/family/caregiver demonstrates understanding of disease process, treatment plan, medications, and discharge instructions Outcome: Adequate for Discharge Problem: Potential for Compromised Skin Integrity Goal: Skin Integrity is Maintained or Improved Outcome: Adequate for Discharge Goal: Nutritional status is improving Outcome: Adequate for Discharge Problem: Urinary Incontinence Goal: Perineal skin integrity is maintained or improved Outcome: Adequate for Discharge Spoke to patient regarding home care services SN/PT/OT - pt politely declined services and stated he "Doesn't feel this is needed." Problem: Neurosensory - Adult Goal: Achieves stable or improved neurological status Outcome: Progressing Problem: Cardiovascular - Adult Goal: Maintains optimal cardiac output and hemodynamic stability Outcome: Progressing Problem: Pain - Adult Goal: Verbalizes/displays adequate comfort level or baseline comfort level Outcome: Progressing Rounds this am Transferred to from ED 3/3 pm DCP: Home with assist PRN, Home with Home health PT/OT -admitted for altered mental status. EEG was done yesterday which did show some abnormal bleeding, MRI is still pending for the patient continue to monitor to be done. Home O2 eval will be needed at discharge patient currently on 2 L of oxygen. Problem: Cardiovascular - Adult Goal: Maintains optimal cardiac output and hemodynamic stability Outcome: Progressing Problem: Pain - Adult Goal: Verbalizes/displays adequate comfort level or baseline comfort level Outcome: Progressing Flowsheets (Taken 11/03/2024 0436) Verbalizes/displays adequate comfort level or baseline comfort level: Encourage patient to monitor pain and request assistance Assess pain using appropriate pain scale Administer analgesics based on type and severity of pain and evaluate response Problem: Safety - Adult Goal: Free from fall injury Outcome: Progressing Flowsheets (Taken 11/02/2024 1430 by Glory Hills RN) Free from fall injury: Instruct family/caregiver on patient safety Based on caregiver fall risk screen, instruct family/caregiver to ask for assistance with transferring infant if caregiver noted to have fall risk factors Problem: Discharge Planning Goal: Discharge to home or other facility with appropriate resources Outcome: Progressing Flowsheets (Taken 11/03/2024 0436) Discharge to home or other facility with appropriate resources: Identify barriers to discharge with patient and caregiver documented in this encounter [facility] 11-03-2024 Nurse Note Discharge instructions given to patient. Verbalizes understanding. IV removed. Awaiting ride. Nicky Crowder RN 11/03/2024 5:27 PM documented in this encounter [facility] 11-03-2024 Note Formatting of this n ote might be different from the original. Spoke to patient regarding home care services SN/PT/OT - pt politely declined services and stated he "Doesn't feel this is needed." [facility] 11-03-2024 Note Formatting of this n ote might be different from the original. Spoke to patient regarding home care services SN/PT/OT - pt politely declined services and stated he "Doesn't feel this is needed." [facility] 11-03-2024 Plan of care note Problem: Neurosensory - Adult Goal: Achieves stable or improved neurological status Outcome: Progressing Problem: Cardiovascular - Adult Goal: Maintains optimal cardiac output and hemodynamic stability Outcome: Progressing Problem: Pain - Adult Goal: Verbalizes/displays adequate comfort level or baseline comfort level Outcome: Progressing [facility] 11-03-2024 History of Present illness Narrative Images from the original note were not included. [id number]] Respiratory Therapy Home O2 Progress Note O2 saturation at rest on room air: 88% (If resting saturation was 88% or less, enter NA for the next two values) O2 saturation with exertion on room air: na% (NA if not evaluated) O2 saturation on O2 at na LPM with exertion: na% (NA if not evaluated) Patient meets criteria for home O2 Y/N = yes Patient mobile at home Y/N = yes DME Notified yes Images from the original note were not included. Medical Teaching Service Progress Note Patient: Krystina Markham : 1955 Acct: [id number] PCP: Pedro Subramanian MD Admitting Physician: Jose M Wiggins MD Admission Date: 11/01/2024 Admitting Diagnosis: Acute hypercapnic respiratory failure (HCC) [J96.02] Unit[facility]Bed: [facility] Hospital Day: 2 Code Status: Full Code Subjective: Overnight events: No significant overnight events. Nursing was at bedside re-evaluating vitals. Patient was resting comfortably and states he has no concerns. He is unsure of what prompted this syncopal episodes and says its the first time it's happened. Objective: Vitals: 11/03/24 0352 11/03/24 0817 11/03/24 0819 11/03/24 08 BP: 118/66 121/64 BP Location: Right arm Right arm Patient Position: Lying Lying Pulse: 63 66 65 Resp: 18 18 Temp: 36.6 C (97.8 F) 36.1 C (97 F) TempSrc: Temporal Temporal SpO2: 91% 90% 92% 97% Weight: Height: Temp (24hrs), Av.4 C (97.5 F), Min:36.1 C (97 F), Max:36.6 C (97.8 F) No intake or output data in the 24 hours ending 11/03/24 0918 Physical Exam Constitutional: General: He is not in acute distress. Appearance: Normal appearance. He is not ill-appearing, toxic-appearing or diaphoretic. HENT: Head: Normocephalic and atraumatic. Nose: No congestion or rhinorrhea. Cardiovascular: Rate and Rhythm: Normal rate and regular rhythm. Pulses: Normal pulses. Heart sounds: Normal heart sounds. Pulmonary: Effort: Pulmonary effort is normal. Breath sounds: Wheezing (mild) present. Abdominal: General: Abdomen is flat. Bowel sounds are normal. There is distension. Palpations: Abdomen is soft. Tenderness: There is no abdominal tenderness. Musculoskeletal: General: Swelling present. No tenderness. Neurological: General: No focal deficit present. Mental Status: He is oriented to person, place, and time. Psychiatric: Mood and Affect: Mood normal. Polanco: No Drains: No Central Line/Port: No Intubated: No Diet: Adult diet Regular; 2000 ml Medications: apixaban, 5 mg, Oral, BID dapagliflozin, 5 mg, Oral, Daily folic acid, 1 mg, Oral, Daily [Held by provider] losartan, 25 mg, Oral, Daily [Held by provider] metoprolol succinate XL, 100 mg, Oral, BID mometasone-formoterol, 2 puff, Inhalation, BID montelukast, 10 mg, Oral, Nightly nicotine, 1 patch, TransDERmal, Daily rosuvastatin, 40 mg, Oral, Daily [Held by provider] sertraline, 100 mg, Oral, Daily spironolactone, 25 mg, Oral, Daily tiotropium, 2 puff, Inhalation, Daily torsemide, 20 mg, Oral, Daily Continuous Infusions: PRN Meds: PRN medications: acetaminophen OR acetaminophen, ipratropium-albuterol, polyethylene glycol (PEG) 3350 Labs: CBC: Results from last 7 days Lab Units 11/03/24 0357 11/02/24 0648 11/01/24 1434 WBC AUTO 10*3/uL 7.3 8.2 7.6 HEMOGLOBIN g/dL 11.6* 13.3 12.6* HEMOGLOBIN BG g/dl -- -- 13.7 HEMATOCRIT % 34.4* 38.6* 36.7* PLATELETS 10*3/uL 223 234 229 NEUTROS PCT AUTO % 66.4 74.5 81.1 LYMPHS PCT AUTO % 19.3 14.6* 10.0* MONOS PCT AUTO % 9.8 9.9 6.5 EOS PCT AUTO % 3.2 0.4 1.3 BMP: Results from last 7 days Lab Units 11/03/24 0357 11/02/24 0648 11/01/24 1434 SODIUM mmol/L 132* 129* 127* POTASSIUM mmol/L 3.5 5.0 3.7 CHLORIDE mmol/L 94* 90* 88* CO2 mmol/L 27 29 29 BUN mg/dL 27* 15 11 CREATININE mg/dL 0.87 0.86 0.78 GLUCOSE mg/dL 112 116* 151* CALCIUM mg/dL 8.9 9.6 9.0 LIVER PROFILE: Results from last 7 days Lab Units 11/03/24 0357 11/02/24 0648 11/01/24 1434 ALK PHOS U/L 78 78 90 BILIRUBIN TOTAL mg/dL 0.6 1.1 1.1 BILIRUBIN DIRECT mg/dL -- -- 0.5* PROTEIN TOTAL g/dL 6.5 8.2 7.3 ALT U/L 6 11 10 AST U/L 23 49* 30 PT/INR: CARDIAC ENZYMES: Results from last 7 days Lab Units 11/01/24 1822 CK TOTAL U/L 150 Procalcitonin: No results found for: "PROCAL" Glucose: ASSESSMENT/PLAN: Patient Active Problem List Diagnosis Date Noted EEG abnormality without seizure 11/03/2024 Acute on chronic respiratory failure with hypoxia and hypercapnia (HCC) 11/02/2024 Prolonged QT interval 11/02/2024 Acute hypercapnic respiratory failure (HCC) 11/01/2024 Acute on chronic systolic (congestive) heart failure (HCC) 09/16/2024 Moderate malnutrition (CMS/HCC) (HCC) 09/12/2024 Acute on chronic congestive heart failure, unspecified heart failure type (HCC) 09/10/2024 Financial difficulties 08/20/2024 Pulmonary HTN (HCC) 08/19/2024 DELORES on CPAP 04/15/2024 Heavy tobacco smoker 04/15/2024 Cigarette smoker 04/15/2024 Personal history of smoking 04/15/2024 Paroxysmal atrial fibrillation (HCC) 03/03/2024 Cervical spondylosis 03/02/2024 Non-pressure chronic ulcer of other part of right foot with unspecified severity (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) 02/17/2024 Alcohol abuse with withdrawal, uncomplicated ([facility]) 02/17/2024 Right arm numbness 02/13/2024 Persistent depressive disorder 02/13/2024 DELORES (obstructive sleep apnea) 02/13/2024 Poor compliance with medication 02/13/2024 On continuous oral anticoagulation 11/21/2023 Acute exacerbation of CHF (congestive heart failure) ([facility]) 11/12/2023 Medical non-compliance 11/12/2023 Anemia in other chronic diseases classified elsewhere 01/01/2023 Closed fracture of neck of left humerus with routine healing 12/31/2022 Hyponatremia 12/29/2022 COPD exacerbation ([facility]) 09/13/2022 Alcohol abuse, continuous 07/28/2022 Presence of cardiac resynchronization therapy defibrillator (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) 07/19/2022 Chest pain, unspecified type 07/17/2022 Hypochloremia 07/17/2022 Tobacco abuse 07/17/2022 HFrEF (heart failure with reduced ejection fraction) ([facility]) 07/17/2022 Permanent atrial fibrillation ([facility]) 08/25/2021 History of rib fracture 08/25/2021 Chronic hyponatremia 08/25/2021 Essential hypertension 08/25/2021 Alcohol consumption heavy 08/25/2021 COPD (chronic obstructive pulmonary disease) ([facility]) 08/25/2021 History of adenomatous polyp of colon 11/18/2019 Diverticulosis of large intestine without diverticulitis 10/27/2019 Compression fracture of thoracic vertebra with routine healing 10/07/2019 Osteoporosis 10/07/2019 Venous stasis dermatitis of left lower extremity 07/17/2017 Current moderate episode of major depressive disorder without prior episode ([facility]) 04/10/2017 Cor, pulmonale, acute (CMS/HCC) (HCC) 02/01/2016 Raynaud phenomenon 09/10/2015 Assessment/Plan: Syncopal episode of unknown etiology Pt found down by roommate, denies any prodrome, tinnitus, tongue biting or urination/defection. MAT/CK WNL. - Continue telemetry - Cardiology consult, appreciate recs (signed off) - Continue home regimen - Follow up with Dr. Foote/device clinic outpatient - EEG, - un-contributory ; Left anterior- to - mid quadrant cortical irritability superimposed on mild global cerebral dysfunction nonspecific to etiology - orthostats Wean 02 - Delirium/fall precautions - CBC/CMP daily - PT/OT/CM/SW HFrEF 11/2023 MERLIN: EF 21%, global hypokinesis. Biventricular ICD in place07/2022, BNP 4K on admission. -Metoprolol succinate 100 mg twice daily -Losartan 25 mg daily -Spironolactone 25 mg daily -Torsemide 20 mg daily -Farxiga 5 mg daily COPD - Supplemental O2 PRN, goal 88-92% -Continue home inhalers : Dulera and Spirvia (substituted for Trelegy Ellipta) -Continue home Singulair 10 mg nightly -Duonebs every 4h as needed -Home 02 Eval prior to discharge QTc prolongation QTc 625 on admission, 612 on 11/02 EKG - Avoid QT prolonging medications Chronic euvolemic hyponatremia - Regular diet with no sodium restriction - 2L water restriction Atrial fibrillation Hasbled: 2 (age and alcohol use) moderate risk for major bleeding, rate controlled -Continue home Apixaban 5 mg BID -Continue home Metoprolol succinate 100mg BID Pulmonary HTN DELORES -Autopap therapy CAD -Continue home Rosuvastatin 40 mg Mood -Hold home sertraline 100 mg daily due to QTc prolongation Tobacco use -Nicotine patch PRN Raynaud phenomenon vs Buerger's -Keep extremities warm as needed -Advise smoking cessation Moderate malnutrition -Encourage PO FEN/GI/DVT IVF: None Electrolytes: Monitor and replace per protocols Diet: General GI PPX: Yes :Other (please state reason) DVT Prophylaxis: NA Telemetry: Currently on Telemetry / Reason: Syncope and prolonged qtc DISPOSITION: Possible discharge early afternoon. MTS Attending Note Patient: Krystina Markham Date of : 1955 Admitting Diagnosis: Acute hypercapnic respiratory failure (HCC) [J96.02] Admit Date: 11/01/2024 Hospital Day: 2 Case discussed with residents, documentation, diagnostic studies and consults reviewed, patient independently interviewed and examined. I have reviewed and agree with Dr. Davis's note except to the extent otherwise documented below. History: Chief Complaint Patient presents with Altered Mental Status Pt presents to er from home via ems for altered mental status. Pt was found unresponsive by and was brought via ems. Pt presented to ems alert to verbal stimuli but confused to name, place, time and event. Pt presents to er alert to self only. Pt presents with normal speech and no stroke symptoms. Patient admitted with syncopal episode and HFrEF exacerbation Overnight events: Blood pressure low; BP meds held Subjective: Patient lying in bed. States he is feeling well. Asking to be discharged. Denies chest pain, shortness of breath, abdominal pain. Tolerating p.o. well. States has just ordered his tray. Notes he has used oxygen at home in the past; continues to smoke cigarettes. Objective: BP 121/64 (BP Location: Right arm, Patient Position: Lying) Pulse 65 Temp 36.1 C (97 F) (Temporal) Resp 18 Ht 5' 8" (1.727 m) Wt 194 lb 0.1 oz (88 kg) SpO2 97% BMI 29.50 kg/m Temp (24hrs), Av.4 C (97.5 F), Min:36.1 C (97 F), Max:36.6 C (97.8 F) No intake or output data in the 24 hours ending 11/03/24 0902 Supplemental O2: O2 Flow Rate (L/min): 3 L/min General appearance: No apparent distress, appears stated age and cooperative with exam HEENT: rhinophyma, wearing NC Respiratory: Normal respiratory effort. +mild exp wheeze throughout noted Cardiovascular: Irregular Abdomen: Soft, distended, +BS Musculoskeletal: Non pitting edema b/l Skin: Skin color, texture, turgor normal. No rashes or lesions. Neurologic: Neurovascularly intact without any focal sensory/motor deficits. Cranial nerves: II-XII intact, grossly non-focal. CBC: Recent Labs 11/01/24 1434 11/02/24 0648 11/03/24 0357 WBC 7.6 8.2 7.3 RBC 4.21* 4.44 3.89* HGB 13.7 12.6* 13.3 11.6* HCT 36.7* 38.6* 34.4* MCV 87.2 86.9 88.4 RDW 13.2 13.6 14.0 PLT 229 234 223 No components found for: "LABA1C" CARDIAC ENZYMES: No results for input(s): "TROPONINI" in the last 72 hours. Procalcitonin: No results found for: "PROCAL" BMP: Recent Labs 11/01/24 1434 11/02/24 0648 11/03/24 0357 NA 127* 129* 132* K 3.7 5.0 3.5 CL 88* 90* 94* CO2 29 29 27 BUN 11 15 27* CREATININE 0.78 0.86 0.87 GLUCOSE 151* 116* 112 CALCIUM 9.0 9.6 8.9 ANIONGAP 10 10 11 LIVER PROFILE: Recent Labs 11/01/24 14311/02/24 0648 11/03/24 0357 AST 30 49* 23 ALT 10 11 6 BILITOT 1.1 1.1 0.6 ALKPHOS 90 78 78 PROT 7.3 8.2 6.5 EEG Leonel Laurent MD PhD 11/02/2024 7:18 PM REASON FOR EXAM: Altered mental status. BACKGROUND ACTIVITY: Posterior background activity: A continuous organized and well-modulated 7.5 Hz, 10-60 uV rhythm was seen symmetrically over the posterior head regions bilaterally. Beta range: Fronto-centrally predominant beta range activity (15-25 Hz, 10-20 uV) was seen. Sleep: No sleep architecture was observed. Normal Variants: No normal variants were identified. SLOWING: Continuous (greater than 90% of the recording) LEFT frontotemporal (F7-T3-T4) irregular and, at times sharply contoured, delta-theta range (0.5-5.5 Hz, 10-100 uV) slow wave activity was observed. This activity was unresponsive to stimulation. Time Elapsed: 00:07:05 INTERICTAL EPILEPTIFORM ACTIVITY: No epileptiform activity was seen. ICTAL ACTIVITY: No ictal activity was seen. NON-EPILEPTIC EVENTS: None. ACTIVATION PROCEDURES: Photic stimulation was noncontributory. Hyperventilation was not performed. IMPRESSION AND ACTIONS TAKEN: This routine EEG with video is abnormal. Continuous LEFT frontotemporal sharply contoured slowing is observed not responsive to stimulation. No epileptiform activity nor seizures are captured. No sleep architecture is observed. The findings are consistent with a LEFT [id number] quadrant cortical irritability superimposed on mild global cerebral dysfunction nonspecific as to etiology. Leonel Laurnet MD PhD Epilepsy Attending ECG 12 lead Afib/flut and V-paced complexes Biventricular paced rhythm No further analysis attempted due to paced rhythm ECG 12 lead Afib/flut and V-paced complexes Biventricular paced rhythm No further rhythm analysis attempted due to paced rhythm Nonspecific intraventricular conduction delay Nonspecific repol abnrm, anterolateral leads Prolonged QT interval Electronically Signed On 11-02-2024 03:55:31 EST by Kalia Foote Lab Results Component Value Date HGBA1C 5.9 (H) 02/14/2024 Summary of singh issues: Syncopal episode etiology unclear-no seizure activity noted on EEG, recent head CT negative -follow-up with cardiology at device clinic. Orthostats neg HFrEF with biventricular ICD in place COPD-Home O2 eval prior to discharge, continue current inhalers Hypertension- hold BP meds, home BP monitoring encouraged Chronic euvolemic hyponatremic -improving Chronic atrial fibrillation-rate control, cardio recs appreciated Pulmonary hypertension/DELORES-on PAP therapy Tobacco use-recommend complete cessation especially if oxygen is in use at home Prolonged QT on admission-holding SSRI may need to consider alternative for mood med Malnutrition-continue multivitamin and nutrition recs, con't MVI at home 11. Hx alcohol use in past, negative this admission, no signs of withdrawal. Discharge later today. Pt agreeable. See resident's note for additional details. Nutrition rescreen completed. Pt referred to RD for malnutrition. Images from the original note were not included. Medical Teaching Service Overnight Summary [facility] PCU [address] [facility] [id number] Dept: [phone] Loc: [phone] Patient: Krystina Markham : 1955 Acct: [id number] PCP: Pedro Subramanian MD Admitting Physician: Jose M Wiggins MD Admission Date: 11/01/2024 Admitting Diagnosis: Acute hypercapnic respiratory failure (HCC) [J96.02] Unit[facility]Bed: [facility] Hospital Day: 2 Code Status: Full Code Pt was monitored throughout the night with bedside rounding. Acute events addressed overnight: None Visit Vitals BP 118/66 (BP Location: Right arm, Patient Position: Lying) Pulse 63 Temp 36.6 C (97.8 F) (Temporal) Resp 18 Ht 5' 8" (1.727 m) Wt 194 lb 0.1 oz (88 kg) SpO2 91% BMI 29.50 kg/m Smoking Status Former BSA 2.05 m Issues requiring daytime follow-up: The patient is a 69-year-old male who was admitted for altered mental status. EEG was done yesterday which did show some abnormal bleeding, follow-up with neurology. MRI is still pending for the patient continue to monitor to be done. Home O2 eval will be needed at discharge patient currently on 2 L of oxygen. No calls received for patient overnight. Any notable events can be found as significant event notes if needed. Pt handoff was made to day-team with pertinent information for pt's case and care. Electronically signed by JESSICA WINTER MD PGY-II Chip Washer [facility] 11/03/24 4:34 AM Cosigned by Siria Dumont MD at 11/03/2024 2:00 PM EST Associated attestation - Siria Dumont MD - 11/03/2024 2:00 PM EST Eeg did not show bleeding -this was a typo Eeg showed non-specific cortical irritability Images from the original note were not included. PHYSICAL THERAPY [facility] Initial Evaluation Name/MRN: Krystina Markham ([id number]) Evaluation Date: 11/02/2024 Date of : 1955 Admission Date: 11/01/2024 1:52 PM Age: 69 y.o. Room/Bed: 41/41 Discharge Recommendation: Home with assist PRN, Home with Home health PT Equipment Needed: No Assessment IMPRESSION: Patient admitted after a fall and was evaluated this date. Patient performed all mobility, including bed mobility, transfers, ambulation, and stair negotiation with modified independence this date. No assistive device was used due to PLOF of no device. Patient demonstrated good safety awareness throughout session. Patient educated on HHC and OPPT this date as options for discharge, but patient politely declined therapy after discharge with no concerns for going home. PT, SPT, and patient all in agreement this date to discontinue therapy this date due to current level of function with ability to re-order therapy if there is a change in status. Admitting Diagnosis: Patient admitted after a fall with altered mental status and was found to have acute hypercapnic respiratory failure. CT negative. Prognosis: good Performance Deficits /Impairments: Decreased Functional Mobility, Decreased Strength, and Decreased Balance Decision Making: Low Complexity Subjective Patient very pleasant and agreeable to therapy session this date. Per RN, patient okay for therapy. Observation: tele intact Pain: Pt denies any current pain. Past Medical History: Past Medical History: Diagnosis Date Alcohol consumption heavy 09/10/2015 stopped 3w ago Asthma Atrial fibrillation (HCC) CHF (congestive heart failure) ([facility]) 01/31/2016 COPD (chronic obstructive pulmonary disease) ([facility]) 09/10/2015 Cor, pulmonale, acute (CMS/HCC) ([facility]) Deep venous thrombosis (HCC) 02/2016 Depression Hx of blood clots Obesity 09/10/2015 DELORES (obstructive sleep apnea) Pulmonary embolus ([facility]) 6 16 Raynaud phenomenon 09/10/2015 Smoker 09/10/2015 Past Surgical History: Past Surgical History: Procedure Laterality Date ABDOMINAL SURGERY BRONCHOSCOPY 02/25/2020 BRONCHOSCOPY (HISTORICAL) 02/25/2020 COLONOSCOPY 10/27/[address] CHEST ANGIOGRAM W AND/OR WO IV CONTRAST 07/12/2022 CT CHEST ANGIOGRAM W AND/OR WO IV CONTRAST 07/12/2022 [facility] CT IMAGING FINGER AMPUTATION Left HERNIA REPAIR NOSE SURGERY PACEMAKER (HISTORICAL) Admission Diagnosis: Patient Active Problem List Diagnosis Date Noted Acute hypercapnic respiratory failure (HCC) 11/01/2024 Acute on chronic systolic (congestive) heart failure (HCC) 09/16/2024 Moderate malnutrition (CMS/HCC) (HCC) 09/12/2024 Acute on chronic congestive heart failure, unspecified heart failure type ([facility]) 09/10/2024 Financial difficulties 08/20/2024 Pulmonary HTN ([facility]) 08/19/2024 DELORES on CPAP 04/15/2024 Heavy tobacco smoker 04/15/2024 Cigarette smoker 04/15/2024 Personal history of smoking 04/15/2024 Paroxysmal atrial fibrillation (HCC) 03/03/2024 Cervical spondylosis 03/02/2024 Non-pressure chronic ulcer of other part of right foot with unspecified severity (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) 02/17/2024 Alcohol abuse with withdrawal, uncomplicated ([facility]) 02/17/2024 Right arm numbness 02/13/2024 Persistent depressive disorder 02/13/2024 DELORES (obstructive sleep apnea) 02/13/2024 Poor compliance with medication 02/13/2024 On continuous oral anticoagulation 11/21/2023 Acute exacerbation of CHF (congestive heart failure) ([facility]) 11/12/2023 Medical non-compliance 11/12/2023 Anemia in other chronic diseases classified elsewhere 01/01/2023 Closed fracture of neck of left humerus with routine healing 12/31/2022 Hyponatremia 12/29/2022 COPD exacerbation (HCC) 09/13/2022 Alcohol abuse, continuous 07/28/2022 Presence of cardiac resynchronization therapy defibrillator (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) 07/19/2022 Chest pain, unspecified type 07/17/2022 Hypochloremia 07/17/2022 Tobacco abuse 07/17/2022 HFrEF (heart failure with reduced ejection fraction) ([facility]) 07/17/2022 Permanent atrial fibrillation ([facility]) 08/25/2021 History of rib fracture 08/25/2021 Essential hypertension 08/25/2021 COPD (chronic obstructive pulmonary disease) (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) 04/10/2017 Cor, pulmonale, acute ([facility]/HCC) ([facility]) 02/01/2016 Raynaud phenomenon 09/10/2015 Medical Precautions: No active isolations Proper PPE donned/doffed in accordance with facility standards. Fall Risk: [place] Fall Risk Score: 60 (High Risk) Precautions/Restrictions: N/A Family/Caregiver Present: none Overall Cognitive Status: WFL Overall Orientation Status: Oriented x4 Vision: No Visual Deficits Hearing: normal Social/Functional History Patient admitted from home. Lives With: Significant Other occasionally, technically lives alone Type of Home: single family home with SO, apartment on own Home Layout: Single Level Home Home Access: Stairs to Enter with Rails (# of stairs: 2) Bathroom Shower/Tub: Tub/Shower Combo Toilet: Standard Home Equipment: none Homemaking Responsibilities: Independent Receives Help From: None Active Food Services Director: Yes Prior Level of Function Prior Level of ADL Function: Independent Prior Level of Mobility: Independent; Device: None Prior Level of Transfers: Independent Objective Lower Extremity Assessment AROM: WFL Strength: Pt demonstrates appropriate B LE and quad strength in order to safely participate in OOB mobility Bed Mobility: Supine to sit: Modified Independent Sit to supine: Modified Independent Scooting: Modified Independent Patient denies dizziness with positional changes. Patient was able to perform all bed mobility with modified independence. Transfers Sit to stand: Modified Independent, from ED cot to no device Stand to sit: Modified Independent Patient denies dizziness with positional changes. Patient demonstrated correct hand placement on bed for B UE support during push off. Patient demonstrated correct reach back technique with good eccentric control with descent. Ambulation Ambulation 1 Assistive device(s) used: None Assist level: Modified Independent Distance (ft): 200 ft x1 Quality of gait: No LOB, reciprocal stepping, B foot clearance, equal step length Patient denies dizziness with ambulation. Patient demonstrated a reciprocal stepping gait pattern with B foot clearance. Patient did ambulate without any LOB noted with no device. Stairs Stairs 1 Assistive device(s) used: None Assist level: Modified Independent # of steps: 5 Rails: right Additional factors: reciprocal going up, reciprocal going down Patient denies dizziness with stair negotiation. Patient demonstrated a reciprocal stair negotiation pattern with ascent and descent this date. Patient utilized one hand rail for support. Outcome Measures AM-PAC How much HELP from another person do you currently need Turning from your back to your side while in a flat bed without using bedrails?: None Moving from lying on your back to sitting on the side of a flat bed without using bedrails?: None Moving to and from a bed to a chair (including a wheelchair)?: None Standing up from a chair using your arms (wheelchair or bedside chair)?: None Walking in a hospital room?: None Stair climbing assessed?: Yes Climbing 3-5 steps with a railing?+: None AM-PAC Inpatient Mobility Raw Score : 24 AM-PAC Inpatient Mobility Raw Score (No Stairs) : 20 Plan No skilled acute PT indicated at this time. Please reconsult should changes occur. Safety/Education Safety Safety Devices in place: All fall risk precautions in place, call light within reach, left in bed, gait belt, patient at risk for falls, nurse notified, and no alarms engaged upon entry Restraints: N/A Education Education Given To: patient Education Provided: PT Role, PT Goals, Gait Training, Plan of Care, Equipment, Fall Prevention Education, Discharge Recommendations, and Benefits of Increasing Activity Education Method: Verbal, Demonstration, and Teach Back Barriers to Learning: None Education Outcome: Verbalized Understanding and Demonstrated Understanding Goals Patient Stated Goal: Patient would like to return home. Therapy Time Individual Co-Treatment Co-Evaluation Time In 1051 Time Out 1103 Minutes Bertha Mendez [facility] Patient's Physical Therapy Plan of Care supervision is transferred to a [facility] Services Physical Therapist. Goals and/or treatment plan was established in collaboration with patient/family/other representatives. Cosigned by Nia Eubanks, PT at 11/02/2024 1:43 PM EST Images from the original note were not included. OCCUPATIONAL THERAPY [facility] Initial Evaluation Name/MRN: Krystina Markham ([id number]) Evaluation Date: 11/02/2024 Date of : 1955 Admission Date: 11/01/2024 1:52 PM Age: 69 y.o. Room/Bed: 41/41 Discharge Recommendation: Home with Home health OT Equipment Needed: No Assessment IMPRESSION: Pt seen on 11/02 for acute hypercapnic respiratory failure and altered mental status. Pt previously independent in all functional UB/LB ADL tasks and functional transfers/mobility using no device. Pt currently SBA for LB ADLS, supervision/Mod I for UB ADLS, supervision for transfers, and SBA for functional mobility with no device. Pt is currently limited by weakness and fatigue. Pt would benefit from continued skilled OT services at this time to address deficits provided. Recommend plan of discharge to [facility]. Admitting Diagnosis: Acute hypercapnic respiratory failure and altered mental status Performance Deficits /Impairments: Decreased Functional Mobility, Decreased Strength, Decreased Endurance, and Decreased High Level IADLs Prognosis: Good Decision Making: Medium Complexity Subjective Pt pleasant and agreeable to therapy services. Services approved by his RN, yvette for therapy. MMT: Shoulder flexion and abduction: 4- Vitals: 11/02/24 0819 BP: 116/66 Pulse: 61 Resp: 17 Temp: 36.8 C (98.2 F) SpO2: (!) 88% Pain: Pt denies any current pain. Past Medical History: Past Medical History: Diagnosis Date Alcohol consumption heavy 09/10/2015 stopped 3w ago Asthma Atrial fibrillation (HCC) CHF (congestive heart failure) ([facility]) 01/31/2016 COPD (chronic obstructive pulmonary disease) ([facility]) 09/10/2015 Cor, pulmonale, acute (CMS/HCC) (HCC) Deep venous thrombosis (HCC) 02/2016 Depression Hx of blood clots Obesity 09/10/2015 DELORES (obstructive sleep apnea) Pulmonary embolus ([facility]) 6 16 Raynaud phenomenon 09/10/2015 Smoker 09/10/2015 Past Surgical History: Past Surgical History: Procedure Laterality Date ABDOMINAL SURGERY BRONCHOSCOPY 02/25/2020 BRONCHOSCOPY (HISTORICAL) 02/25/2020 COLONOSCOPY 10/27/[address] CHEST ANGIOGRAM W AND/OR WO IV CONTRAST 07/12/2022 CT CHEST ANGIOGRAM W AND/OR WO IV CONTRAST 07/12/2022 [facility] CT IMAGING FINGER AMPUTATION Left HERNIA REPAIR NOSE SURGERY PACEMAKER (HISTORICAL) Admission Diagnosis: Patient Active Problem List Diagnosis Date Noted Acute hypercapnic respiratory failure (HCC) 11/01/2024 Acute on chronic systolic (congestive) heart failure (HCC) 09/16/2024 Moderate malnutrition (CMS/HCC) ([facility]) 09/12/2024 Acute on chronic congestive heart failure, unspecified heart failure type ([facility]) 09/10/2024 Financial difficulties 08/20/2024 Pulmonary HTN ([facility]) 08/19/2024 DELORES on CPAP 04/15/2024 Heavy tobacco smoker 04/15/2024 Cigarette smoker 04/15/2024 Personal history of smoking 04/15/2024 Paroxysmal atrial fibrillation ([facility]) 03/03/2024 Cervical spondylosis 03/02/2024 Non-pressure chronic ulcer of other part of right foot with unspecified severity (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) 02/17/2024 Alcohol abuse with withdrawal, uncomplicated ([facility]) 02/17/2024 Right arm numbness 02/13/2024 Persistent depressive disorder 02/13/2024 DELORES (obstructive sleep apnea) 02/13/2024 Poor compliance with medication 02/13/2024 On continuous oral anticoagulation 11/21/2023 Acute exacerbation of CHF (congestive heart failure) ([facility]) 11/12/2023 Medical non-compliance 11/12/2023 Anemia in other chronic diseases classified elsewhere 01/01/2023 Closed fracture of neck of left humerus with routine healing 12/31/2022 Hyponatremia 12/29/2022 COPD exacerbation ([facility]) 09/13/2022 Alcohol abuse, continuous 07/28/2022 Presence of cardiac resynchronization therapy defibrillator (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) 07/19/2022 Chest pain, unspecified type 07/17/2022 Hypochloremia 07/17/2022 Tobacco abuse 07/17/2022 HFrEF (heart failure with reduced ejection fraction) ([facility]) 07/17/2022 Permanent atrial fibrillation ([facility]) 08/25/2021 History of rib fracture 08/25/2021 Essential hypertension 08/25/2021 COPD (chronic obstructive pulmonary disease) (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) 04/10/2017 Cor, pulmonale, acute (CMS/HCC) ([facility]) 02/01/2016 Raynaud phenomenon 09/10/2015 Medical Precautions: No active isolations Proper PPE donned/doffed in accordance with facility standards. Fall Risk: (High Risk) Precautions/Restrictions: N/A Family/Caregiver Present: none Overall Cognitive Status: WNL Overall Orientation Status: Oriented x4 Social/Functional History Patient admitted from home. Lives With: Significant Other Type of Home: single family home Home Layout: Single Level Home Home Access: Stairs to Enter with Rails (# of stairs: 2) Bathroom Shower/Tub: Tub/Shower Combo Toilet: Standard Home Equipment: none Homemaking Responsibilities: Independent Receives Help From: None Active Food Services Director: Yes Prior Level of Function Prior Level of ADL Function: Independent Prior Level of Mobility: Independent; Device: None Prior Level of Transfers: Independent Objective ADLs LE Dressing: SBA UE Dressing: Modified Independent, Supervision Feeding: Independent Pt completed UB and LB dressing at EOB. Pt donned hospital gown with no physical assist needed for threading BUE. Pt demonstrates functional strength and ROM to complete other UB dressing with no physical assist while sitting. Pt mod I overall for UB dressing while seated and supervision when standing due to weakness. Pt already in own pants (jeans) upon arrival and reports putting them on himself. Pt demonstrates figure four sitting at EOB to adjust BLE socks with no physical assist. Pt demonstrates good dynamic sitting balance and denies any dizziness during dressing tasks. Pt reports being able to get and go to bathroom outside his room with no physical assist. Pt declines wanting to go to bathroom because he doesn't have to go. Pt finished eating breakfast upon arrival and reports no difficulties feeding himself. Bed Mobility Pt sitting at EOB upon arrival and at end of session. Pt demonstrates functional strength and ROM to complete bed mobility with no physical assist. Pt reports having no difficulty getting in/out of bed at this time. Transfers/Mobility Sit to stand: Supervision Stand to sit: Supervision Functional mobility: SBA Increased time overall to complete OOB activity. Pt required supervision overall for all sit < > stand transfers from EOB using no device. Pt demonstrated good teach back of hand reach back and BLE management when standing from seated surface. Pt reported no dizziness or pain when standing/sitting from EOB. Pt completed functional mobility from EOB to hallway using no device with SBA overall. Pt demonstrated good safety awareness when negotiating the environment with no increased safety/sequencing cues required. Pt displayed no signs of buckling or LOB when completing functional mobility at this time. Pt denied any dizziness or increased pain when completing functional mobility at this time. Device(s) used: None Vision: No Visual Deficits Hearing: normal AM-PAC AM-PAC Inpatient Daily Activity Raw Score: 23 ADL Inpatient CMS G-Code Modifier: CI Plan Pt would benefit from skilled acute OT services to address Strengthening, Balance Training, Self-Care/ADL Training, Functional Mobility Training, and Endurance Training. Frequency: 2 visits during current hospital admission or until additional recommendations are made Barriers: Pain, Upper extremity weakness, and Decreased endurance Safety/Education Safety Safety Devices in place: All fall risk precautions in place, call light within reach, gait belt, patient at risk for falls, nurse notified, no alarms engaged upon entry, and patient left sitting EOB Restraints: No Education Education Given To: patient Education Provided: OT Role, Precautions, ADL Adaptive Strategies, Transfer Training, IADL Safety, Fall Prevention Education, and Discharge Recommendations Education Method: Verbal, Demonstration, and Teach Back Barriers to Learning: None Education Outcome: Verbalized Understanding and Demonstrated Understanding Goals Patient Stated Goal: To return home Encounter Problems Encounter Problems (Active) Cognition Patient will sequence through basic ADL with no more than 2 verbal cues Start: 11/02/24 Expected End: 11/04/24 Dressing Upper Extremities Patient will complete upper body dressing with Mod I Start: 11/02/24 Expected End: 11/04/24 Dressings Lower Extremities Patient will dress lower body with mod I Start: 11/02/24 Expected End: 11/04/24 Mobility Patient will demonstrate functional ambulation using no device and Mod I Start: 11/02/24 Expected End: 11/04/24 Toileting Patient will complete toileting tasks at standard toilet with modified independence. Start: 11/02/24 Expected End: 11/04/24 Transfers Patient will complete functional transfer with no assistive device with modified independence in order to prepare for ambulation. Start: 11/02/24 Expected End: 11/04/24 Patient will perform bed mobility with modified independence in order to improve independence and prepare for out of bed mobility. Start: 11/02/24 Expected End: 11/04/24 Therapy Time Individual Co-Treatment Co-Evaluation Time In 09 Time Out 0914 Minutes 9 Philipp Rodriguez S/OT Patient's Occupational Therapy Plan of Care supervision is transferred to a [facility] Services Occupational Therapist. Goals and/or treatment plan was established in collaboration with patient/family/other representatives. Cosigned by Kenneth Hand OT at 11/02/2024 2:49 PM EST Associated attestation - Kenneth Hand OT - 11/02/2024 2:49 PM EST I certify that I was present during the entire session and guided the care given by the Student Occupational Therapist. Cosign: Images from the original note were not included. Medical Teaching Service Progress Note Patient: Krystina Markham : 1955 Acct: [id number] PCP: Pedro Subramanian MD Admitting Physician: Jose M Wiggins MD Admission Date: 11/01/2024 Admitting Diagnosis: Acute hypercapnic respiratory failure (HCC) [J96.02] Unit/Bed: 41/41 Hospital Day: 1 Code Status: Full Code Subjective: Overnight events: No significant overnight events. Patient eating breakfast. States that he lives with another lady but he has to sleep on the couch. Objective: Vitals: 11/01/24 1830 11/01/24 1958 11/02/24 0110 11/02/24 0819 BP: 124/63 116/66 BP Location: Left arm Patient Position: Lying Pulse: 68 66 61 61 Resp: 22 17 Temp: 36.8 C (98.2 F) TempSrc: Temporal SpO2: 97% 95% 94% (!) 88% Weight: Height: Temp (24hrs), Av.8 C (98.2 F), Min:36.7 C (98.1 F), Max:36.8 C (98.2 F) No intake or output data in the 24 hours ending 11/02/24 0920 Physical Exam Constitutional: General: He is not in acute distress. Appearance: Normal appearance. He is not ill-appearing, toxic-appearing or diaphoretic. HENT: Head: Normocephalic and atraumatic. Nose: No congestion or rhinorrhea. Cardiovascular: Rate and Rhythm: Normal rate and regular rhythm. Pulses: Normal pulses. Heart sounds: Normal heart sounds. Pulmonary: Effort: Pulmonary effort is normal. Breath sounds: Wheezing (mild) present. Abdominal: General: Abdomen is flat. Bowel sounds are normal. There is distension. Palpations: Abdomen is soft. Tenderness: There is no abdominal tenderness. Musculoskeletal: General: Swelling present. No tenderness. Neurological: General: No focal deficit present. Mental Status: He is oriented to person, place, and time. Psychiatric: Mood and Affect: Mood normal. Polanco: No Drains: No Central Line/Port: No Intubated: No Diet: Adult diet Regular; 2000 ml Medications: apixaban, 5 mg, Oral, BID dapagliflozin, 5 mg, Oral, Daily folic acid, 1 mg, Oral, Daily losartan, 25 mg, Oral, Daily metoprolol succinate XL, 100 mg, Oral, BID mometasone-formoterol, 2 puff, Inhalation, BID montelukast, 10 mg, Oral, Nightly nicotine, 1 patch, TransDERmal, Daily rosuvastatin, 40 mg, Oral, Daily [Held by provider] sertraline, 100 mg, Oral, Daily spironolactone, 25 mg, Oral, Daily tiotropium, 2 puff, Inhalation, Daily torsemide, 20 mg, Oral, Daily Continuous Infusions: PRN Meds: PRN medications: acetaminophen OR acetaminophen, ipratropium-albuterol, ondansetron ODT OR ondansetron, polyethylene glycol (PEG) 3350 Labs: CBC: Results from last 7 days Lab Units 11/02/24 0648 11/01/24 1434 WBC AUTO 10*3/uL 8.2 7.6 HEMOGLOBIN g/dL 13.3 12.6* HEMOGLOBIN BG g/dl -- 13.7 HEMATOCRIT % 38.6* 36.7* PLATELETS 10*3/uL 234 229 NEUTROS PCT AUTO % 74.5 81.1 LYMPHS PCT AUTO % 14.6* 10.0* MONOS PCT AUTO % 9.9 6.5 EOS PCT AUTO % 0.4 1.3 BMP: Results from last 7 days Lab Units 11/02/24 0648 11/01/24 1434 SODIUM mmol/L 129* 127* POTASSIUM mmol/L 5.0 3.7 CHLORIDE mmol/L 90* 88* CO2 mmol/L 29 29 BUN mg/dL 15 11 CREATININE mg/dL 0.86 0.78 GLUCOSE mg/dL 116* 151* CALCIUM mg/dL 9.6 9.0 LIVER PROFILE: Results from last 7 days Lab Units 11/02/24 0648 11/01/24 1434 ALK PHOS U/L 78 90 BILIRUBIN TOTAL mg/dL 1.1 1.1 BILIRUBIN DIRECT mg/dL -- 0.5* PROTEIN TOTAL g/dL 8.2 7.3 ALT U/L 11 10 AST U/L 49* 30 PT/INR: CARDIAC ENZYMES: Results from last 7 days Lab Units 11/01/24 1822 CK TOTAL U/L 150 Procalcitonin: No results found for: "PROCAL" Glucose: ASSESSMENT/PLAN: Patient Active Problem List Diagnosis Date Noted Acute hypercapnic respiratory failure (HCC) 11/01/2024 Acute on chronic systolic (congestive) heart failure (HCC) 09/16/2024 Moderate malnutrition (CMS/HCC) (HCC) 09/12/2024 Acute on chronic congestive heart failure, unspecified heart failure type (HCC) 09/10/2024 Financial difficulties 08/20/2024 Pulmonary HTN (HCC) 08/19/2024 DELORES on CPAP 04/15/2024 Heavy tobacco smoker 04/15/2024 Cigarette smoker 04/15/2024 Personal history of smoking 04/15/2024 Paroxysmal atrial fibrillation (HCC) 03/03/2024 Cervical spondylosis 03/02/2024 Non-pressure chronic ulcer of other part of right foot with unspecified severity (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) 02/17/2024 Alcohol abuse with withdrawal, uncomplicated ([facility]) 02/17/2024 Right arm numbness 02/13/2024 Persistent depressive disorder 02/13/2024 DELORES (obstructive sleep apnea) 02/13/2024 Poor compliance with medication 02/13/2024 On continuous oral anticoagulation 11/21/2023 Acute exacerbation of CHF (congestive heart failure) ([facility]) 11/12/2023 Medical non-compliance 11/12/2023 Anemia in other chronic diseases classified elsewhere 01/01/2023 Closed fracture of neck of left humerus with routine healing 12/31/2022 Hyponatremia 12/29/2022 COPD exacerbation ([facility]) 09/13/2022 Alcohol abuse, continuous 07/28/2022 Presence of cardiac resynchronization therapy defibrillator (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) 07/19/2022 Chest pain, unspecified type 07/17/2022 Hypochloremia 07/17/2022 Tobacco abuse 07/17/2022 HFrEF (heart failure with reduced ejection fraction) ([facility]) 07/17/2022 Permanent atrial fibrillation ([facility]) 08/25/2021 History of rib fracture 08/25/2021 Essential hypertension 08/25/2021 COPD (chronic obstructive pulmonary disease) (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) 04/10/2017 Cor, pulmonale, acute (CMS/HCC) ([facility]) 02/01/2016 Raynaud phenomenon 09/10/2015 Assessment/Plan: Syncopal episode of unknown etiology Pt found down by roommate, denies any prodrome, tinnitus, tongue biting or urination/defection. MAT/CK WNL. - Continue telemetry - Cardiology consult, appreciate recs - Obtain MRI brain, EEG, orthostatic vitals - Delirium/fall precautions - CBC/CMP daily - PT/OT/CM/SW HFrEF 11/2023 MERLIN: EF 21%, global hypokinesis. Biventricular ICD in place07/2022, BNP 4K on admission. -Metoprolol succinate 100 mg twice daily -Losartan 25 mg daily -Spironolactone 25 mg daily -Torsemide 20 mg daily -Farxiga 5 mg daily COPD - Supplemental O2 PRN, goal 88-92% -Continue home inhalers : Dulera and Spirvia (substituted for Trelegy Ellipta) -Continue home Singulair 10 mg nightly -Duonebs every 4h as needed -Home 02 Eval prior to discharge QTc prolongation QTc 625 on admission, 612 on 11/02 EKG - Avoid QT prolonging medications Chronic euvolemic hyponatremia - Regular diet with no sodium restriction - 2L water restriction Atrial fibrillation Hasbled: 2 (age and alcohol use) moderate risk for major bleeding, rate controlled -Continue home Apixaban 5 mg BID -Continue home Metoprolol succinate 100mg BID Pulmonary HTN DELORES -Autopap therapy CAD -Continue home Rosuvastatin 40 mg Mood -Hold home sertraline 100 mg daily due to QTc prolongation Tobacco use -Nicotine patch PRN Raynaud phenomenon vs Buerger's -Keep extremities warm as needed -Advise smoking cessation Moderate malnutrition -Encourage PO FEN/GI/DVT IVF: None Electrolytes: Monitor and replace per protocols Diet: General GI PPX: Yes :Other (please state reason) DVT Prophylaxis: NA Telemetry: Currently on Telemetry / Reason: Syncope and prolonged qtc DISPOSITION: Continued admission for new onset syncope work-up. Anticipate discharge when patient is medically stable, likely in 24-48 hours. I have personally seen the patient and performed a history and physical exam. I have discussed the patient with the resident and attending. I have reviewed the note and agree with the assessment and plan as documented, with my additions in blue. Pedro Subramanian M.D. PGY-III Chief Resident [place] 03/03/25 8:49 PM Images from the original note were not included. MTS attending progress note Case discussed with residents, documentation reviewed, diagnostic studies reviewed, patient independently interviewed and examined. I have reviewed and agree with Dr. Sukumar South's note to the extent otherwise documented below Chief Complaint Patient presents with Altered Mental Status Pt presents to er from home via ems for altered mental status. Pt was found unresponsive by and was brought via ems. Pt presented to ems alert to verbal stimuli but confused to name, place, time and event. Pt presents to er alert to self only. Pt presents with normal speech and no stroke symptoms. HFrEF, biventricular pacer and cuff matcher-d 2/2 NICM, stage C, class II. EF 21% per echocardiogram November 2023. Decompensations usually related to noncompliance with medical therapy . He also parada cuff matcher-d in as well Patient was found down yesterday 11/01 by ex- at home on floor of home -unclear how long down . This has never happened before . Nih score was 1 . He is poor historian , and non -adherent to meds in pat . States he has been taking meds and that last alcohol use was 4 days ago . Denied seizure hx . Ct head neg . Did come in hypoxic and hypercapnic . When asked if he sees analytics director he says no. But pt ddi see cardio Last device check was 09/16/2024 -only had 13% pacing He denied sob, cp. Parada. Urinary incontinence, or palpiations. No other prodrome Chronic 2 liters at home but not sure if he's using BP 124/63 (BP Location: Left arm, Patient Position: Lying) Pulse 61 Temp 36.7 C (98.1 F) Resp 20 Ht 5' 8" (1.727 m) Wt 190 lb (86.2 kg) SpO2 94% BMI 28.89 kg/m GENERAL APPEARANCE: This patient is in no acute distress. Awake and alert. HEENT: Normocephalic, atraumatic. Extraocular muscles are intact. NECK: Supple LUNGS: No stridor. Breathing comfortably. CARDIOVASCULAR:afib ABDOMEN: distended / MUSCULOSKELETAL: Active range of motion. There is no clubbing, cyanosis, or edema. NEUROLOGICAL: Awake, alert and oriented x to person and place and time PSYCH: Normal mood and affect. DERMATOLOGIC: No petechiae, rashes, or ecchymoses. Skin has normal temperature. There's no cyanosis, erythema, pallor or edema. Lab Results Component Value Date WBC 8.2 11/02/2024 HGB 13.3 11/02/2024 HCT 38.6 (L) 11/02/2024 MCV 86.9 11/02/2024 PLT 234 11/02/2024 Bnp =~ 4,000 better than in past Trop 16 Lab Results Component Value Date NA 127 (L) 11/01/2024 K 3.7 11/01/2024 CL 88 (L) 11/01/2024 CO2 29 11/01/2024 BUN 11 11/01/2024 CREATININE 0.78 11/01/2024 GLUCOSE 151 (H) 11/01/2024 CALCIUM 9.0 11/01/2024 11/11/23 TRANSTHORACIC ECHOCARDIOGRAM (TTE) COMPLETE (CONTRAST/BUBBLE/3D PRN) 11/12/2023 4:32 PM (Final) Interpretation Summary Left Ventricle: Left ventricle is moderately dilated. LVIDd is 6.4 cm. Mildly increased wall thickness. Severely reduced left ventricular systolic function. EF by 2D Simpsons Biplane is 21%. Global hypokinesis present. Right Ventricle: Right ventricle is severely dilated. Pacemaker lead present in the right ventricle. Tricuspid Valve: Moderately severe (3+) regurgitation. RVSP may be underestimated in the setting of severe TR. RVSP is 47 mmHg. Left Atrium: Left atrium is severely dilated. LA Vol Index A/L is 73 mL/m2. Right Atrium: Right atrium is severely dilated. Mitral Valve: Annular dilation. Mild to moderate (1-2+) regurgitation. IVC is severely dilated. IVC diameter is dilated and decreases less than 50% during inspiration; therefore the estimated right atrial pressure is elevated (~15 mmHg). Signed by: Tonya Rosales on 11/12/2023 4:32 PM === 11/01/24 === CT HEAD WO IV CONTRAST - Impression - No acute intracranial hemorrhage or mass effect. Report Dictated on Electronically Signed By: Alek Erazo MD Electronically Signed Date/Time: 11/01/2024 3:19 PM EST Summary of singh issues: Syncope and collapse-no prior episodes with ams that improved by this am etiology unclear -check orthostats , trop neg - Alcohol use with last alcoholic beverage 4 days ago no signs or symptoms withdrawal at this time - check mri / eeg Nicd / hfref with bivent pacer/ and cardiac resynchron / chronic prolonged QTC - consult cardio Persistent E-yhv-gckuyxnh on Eliquis Acute on chronic hypercapnic / hypoxic resp insuffiency likley cause of ams /consider home O2 eval/keep O2 sats between 88-92% Hrref-stable this admission Chronic hyponatremia-improving with fluid restriction-could be due to beer potomania versus HFrEF DELORES-supposedly uses CPAP at home See resident's note for additional details. documented in this encounter [facility] 11-03-2024 Telephone encounter Note Last seen 09/06/21, no [address] Rosas requesting Athlete Builder appt pt currently in [facility] Athlete Builder appt gaby at [facility] on 11/11/24 [facility] 11-03-2024 Miscellaneous Notes Last seen 09/06/21, no [address] Rosas requesting Athlete Builder appt pt currently in [facility] Athlete Builder appt gaby at [facility] on 11/11/24 Patient is currently in [facility].Dr. Rosas would like patient seen by Dr. Foote and device clinic for pace maker optimization. Could you please call patient and schedule an appt ? Thank you documented in this encounter [facility] 11-03-2024 Note [facility] 11-03-2024 Hospital Discharge instructions Toi Davis MD - 11/03/2024 12:59 PM EST GENERAL SIGNS AND SYMPTOMS GREEN ZONE: All Clear- Your Symptoms Are Under Control No recurrence of symptoms that led to hospitalization Able to do usual activities No fever No chest pain No shortness of breath This Means You Should: Continue taking your medications as prescribed Continue activity as tolerated Keep all doctor appointments YELLOW ZONE: Caution as Your Health may be Worsening Recurrence of symptoms that led to hospitalization Fever of 100 degrees or higher Increased fatigue or restlessness Intolerant side-effects of medications Uneasy feeling or that something is wrong This Means You Should: Call your doctor for further instructions Pedro Subramanian MD [phone] [address] [facility] / [place] [phone] RED ZONE: Medical Alert Severe or unrelieved shortness of breath at rest Unrelieved chest pain Confusion or you can't think clearly This Means You Should Call 911 Immediately MAKE AN APPOINTMENT TO FOLLOW-UP WITH YOUR PCP IN 1 WEEK: Pedro Subramanian MD [address] [facility] / [place] [phone] FOLLOW- UP WITH IN 7-10 DAYS: STOP TAKING none START TAKING none CONTINUE HOME MEDS THAT ARE NOT THE ONES ABOVE Harm reduction discussed Recommend daily multivitamin Recommend one full meal/day Told to avoid large doses tylenol or ibuprofen Avoid/decrease alcohol offered hep a and b series Wear seat belt The following attachments cannot be sent through Care Everywhere.Heart Failure Discharge Instructions, Adult ([place] Ze[place])documented in this encounter [facility] 11-03-2024 Telephone encounter Note Patient is currently in [facility].Dr. Rosas would like patient seen by Dr. Foote and device clinic for pace maker optimization. Could you please call patient and schedule an appt ? Thank you [facility] 11-03-2024 Note Formatting of this n ote might be different from the original. Rounds this am Transferred to 2E from ED 3/3 pm DCP: Home with assist PRN, Home with Home health PT/OT -admitted for altered mental status. EEG was done yesterday which did show some abnormal bleeding, MRI is still pending for the patient continue to monitor to be done. Home O2 eval will be needed at discharge patient currently on 2 L of oxygen. [facility] 11-03-2024 Note Formatting of this n ote might be different from the original. Rounds this am Transferred to 2E from ED 3/3 pm DCP: Home with assist PRN, Home with Home health PT/OT -admitted for altered mental status. EEG was done yesterday which did show some abnormal bleeding, MRI is still pending for the patient continue to monitor to be done. Home O2 eval will be needed at discharge patient currently on 2 L of oxygen. [facility] [facility] 11-03-2024 Plan of care note Problem: Cardiovascular - Adult Goal: Maintains optimal cardiac output and hemodynamic stability Outcome: Progressing Problem: Pain - Adult Goal: Verbalizes/displays adequate comfort level or baseline comfort level Outcome: Progressing Flowsheets (Taken 11/03/2024 0436) Verbalizes/displays adequate comfort level or baseline comfort level: Encourage patient to monitor pain and request assistance Assess pain using appropriate pain scale Administer analgesics based on type and severity of pain and evaluate response Problem: Safety - Adult Goal: Free from fall injury Outcome: Progressing Flowsheets (Taken 11/02/2024 1430 by Glory Hills RN) Free from fall injury: Instruct family/caregiver on patient safety Based on caregiver fall risk screen, instruct family/caregiver to ask for assistance with transferring infant if caregiver noted to have fall risk factors Problem: Discharge Planning Goal: Discharge to home or other facility with appropriate resources Outcome: Progressing Flowsheets (Taken 11/03/2024 0436) Discharge to home or other facility with appropriate resources: Identify barriers to discharge with patient and caregiver [facility] 11-02-2024 Note EEG complete at bedside. [facility] 11-02-2024 Procedure note EEG complete at bedside. [facility] 11-02-2024 Procedure note EEG complete at bedside. Associated Order(s): EEG Images from the original note were not included. [facility] [address] [place] [id number] ROUTINE EEG REPORT Patient Name: Krystina Markham : 1955 Date of Study: 11/02/2024 Duration Recorded: 23 minutes EEG#: [id number] SKIMMER SCOOP OPERATOR: Jamin Dominguez PROVIDER REQUESTING STUDY: Letty Subramanian MD REASON FOR EXAM: Altered mental status. DIAGNOSIS TAG: Transient Neurologic Symptoms (TNS) HISTORY: Krystina Markham is a 69 y.o. male with history of n brief, Krystina Markham is a 69 y.o. that presents to the emergency department after being found unresponsive by his this afternoon. Last seen normal around 7 AM. Patient is confused. He denies complaints. He denies headache, numbness, weakness, shortness of breath, chest pain, abdominal pain. MEDICATIONS: Current Facility-Administered Medications Medication Dose Route Frequency Provider Last Rate Last Admin acetaminophen (Tylenol) tablet 650 mg 650 mg Oral q6h PRN Sukumar South MD Or acetaminophen (Tylenol) suppository 650 mg 650 mg Rectal q6h PRN Sukumar South MD apixaban (Eliquis) tablet 5 mg 5 mg Oral BID Sukumar South MD 5 mg at 11/02/24 0943 dapagliflozin (Farxiga) tablet 5 mg 5 mg Oral Daily Sukumar South MD 5 mg at 11/02/24 0943 folic acid (Folvite) tablet 1 mg 1 mg Oral Daily Sukumar South MD 1 mg at 11/02/24 0943 ipratropium-albuterol (Duo-Neb) 0.5-2.5 mg/3 mL nebulizer solution 3 mL 3 mL Nebulization q4h PRN Sukumar South MD losartan (Cozaar) tablet 25 mg 25 mg Oral Daily Sukumar South MD 25 mg at 11/02/24 0944 metoprolol succinate XL (Toprol-XL) 24 hr tablet 100 mg 100 mg Oral BID Sukumar South MD 100 mg at 11/02/24 0943 mometasone-formoterol (Dulera 100) 100-5 MCG/ACT inhaler 2 puff 2 puff Inhalation BID Sukumar South MD 2 puff at 11/02/24 0942 montelukast (Singulair) tablet 10 mg 10 mg Oral Nightly Sukumar South MD 10 mg at 11/01/24 2215 nicotine (Nicoderm, Step 2) 14 MG/24HR patch 1 patch 1 patch TransDERmal Daily Sukumar South MD polyethylene glycol (PEG) 3350 (Miralax) packet 17 g 17 g Oral Daily PRN Sukumar South MD rosuvastatin (Crestor) tablet 40 mg 40 mg Oral Daily Sukumar South MD 40 mg at 11/02/24 0944 [Held by provider] sertraline (Zoloft) tablet 100 mg 100 mg Oral Daily Sukumar South MD spironolactone (Aldactone) tablet 25 mg 25 mg Oral Daily Sukumar South MD 25 mg at 11/02/24 0943 tiotropium (Spiriva Respimat) 2.5 MCG/ACT inhaler 2 puff 2 puff Inhalation Daily Sukumar South MD 2 puff at 11/02/24 0942 torsemide (Demadex) tablet 20 mg 20 mg Oral Daily Sukumar South MD 20 mg at 11/02/24 0944 Current Outpatient Medications Medication Sig Dispense Refill albuterol (2.5 MG/3ML) 0.083% nebulizer solution Take 3 mL (2.5 mg) by nebulization as needed for wheezing or shortness of breath. 75 mL 3 apixaban (Eliquis) 5 MG tablet Take 1 tablet (5 mg) by mouth 2 times daily. 60 tablet 11 dapagliflozin (Farxiga) 5 MG tablet Take 1 tablet (5 mg) by mouth daily. 30 tablet 11 Vikahikyuib-Kgyqqgmhk-Onezok (Trelegy Ellipta) 100-62.5-25 MCG/ACT aerosol powder Inhale 1 puff daily. (Patient not taking: Reported on 10/14/2024) 2 each 0 folic acid (Folvite) 1 MG tablet Take 1 tablet (1 mg) by mouth daily. 30 tablet 1 losartan (Cozaar) 25 MG tablet Take 1 tablet (25 mg) by mouth daily. 15 tablet 3 metoprolol succinate XL (Toprol-XL) 100 MG 24 hr tablet Take 1 tablet (100 mg) by mouth 2 times daily. Do not crush or chew. 180 tablet 0 montelukast (Singulair) 10 MG tablet Take 1 tablet (10 mg) by mouth Nightly. 90 tablet 0 rosuvastatin (Crestor) 40 MG tablet Take 1 tablet (40 mg) by mouth daily. 30 tablet 3 sertraline (Zoloft) 100 MG tablet Take 1 tablet (100 mg) by mouth daily. 30 tablet 3 spironolactone (Aldactone) 25 MG tablet Take 1 tablet (25 mg) by mouth daily. 30 tablet 5 torsemide (Demadex) 20 MG tablet Take 2 tablets (40 mg) by mouth 2 times daily. (Patient not taking: Reported on 10/14/2024) 120 tablet 2 torsemide (Demadex) 20 MG tablet Take 2.5 tablets (50 mg) by mouth 2 times daily for 7 days. 35 tablet 0 TECHNICAL ASPECTS: This routine scalp EEG study with video was carried out at [facility]. Scalp electrodes were positioned in person by an nanotechnologist, following patient education, according to the 10-20 International system of electrode placement and maintained for integrity and quality of the recording. . EEG data with video was recorded continuously and digitally stored. The nanotechnologist reviewed all automated detections and manual events and prepared the data for archiving and provider review. Referential and bipolar montages were used for review. TECHNOLOGIST NOTES: No skull or scalp defects were observed. BACKGROUND ACTIVITY: Posterior background activity: A continuous organized and well-modulated 7.5 Hz, 10-60 uV rhythm was seen symmetrically over the posterior head regions bilaterally. Beta range: Fronto-centrally predominant beta range activity (15-25 Hz, 10-20 uV) was seen. Sleep: No sleep architecture was observed. Normal Variants: No normal variants were identified. SLOWING: Continuous (greater than 90% of the recording) LEFT frontotemporal (F7-T3-T4) irregular and, at times sharply contoured, delta-theta range (0.5-5.5 Hz, 10-100 uV) slow wave activity was observed. This activity was unresponsive to stimulation. Time Elapsed: 00:07:05 INTERICTAL EPILEPTIFORM ACTIVITY: No epileptiform activity was seen. ICTAL ACTIVITY: No ictal activity was seen. NON-EPILEPTIC EVENTS: None. ACTIVATION PROCEDURES: Photic stimulation was noncontributory. Hyperventilation was not performed. IMPRESSION AND ACTIONS TAKEN: This routine EEG with video is abnormal. Continuous LEFT frontotemporal sharply contoured slowing is observed not responsive to stimulation. No epileptiform activity nor seizures are captured. No sleep architecture is observed. The findings are consistent with a LEFT jhotdbwq-wg-lro quadrant cortical irritability superimposed on mild global cerebral dysfunction nonspecific as to etiology. Leonel Laurent MD PhD Epilepsy Attending documented in this encounter [facility] 11-02-2024 Note [facility] 11-02-2024 Procedure note Associated Ord er(s): EEG Images from the original note were not included. [facility] [address] [place] [address] ROUTINE EEG REPORT Patient Name: Krystina Markham : 1955 Date of Study: 11/02/2024 Duration Recorded: 23 minutes EEG#: [id number] SKIMMER SCOOP OPERATOR: Jamin Dominguez PROVIDER REQUESTING STUDY: Letty Subramanian MD REASON FOR EXAM: Altered mental status. DIAGNOSIS TAG: Transient Neurologic Symptoms (TNS) HISTORY: Krystina Markham is a 69 y.o. male with history of n brief, Krystina Markham is a 69 y.o. that presents to the emergency department after being found unresponsive by his this afternoon. Last seen normal around 7 AM. Patient is confused. He denies complaints. He denies headache, numbness, weakness, shortness of breath, chest pain, abdominal pain. MEDICATIONS: Current Facility-Administered Medications Medication Dose Route Frequency Provider Last Rate Last Admin acetaminophen (Tylenol) tablet 650 mg 650 mg Oral q6h PRN Sukumar South MD Or acetaminophen (Tylenol) suppository 650 mg 650 mg Rectal q6h PRN Sukumar South MD apixaban (Eliquis) tablet 5 mg 5 mg Oral BID Sukumar South MD 5 mg at 11/02/24 0943 dapagliflozin (Farxiga) tablet 5 mg 5 mg Oral Daily Sukumar South MD 5 mg at 11/02/24 0943 folic acid (Folvite) tablet 1 mg 1 mg Oral Daily Sukumar South MD 1 mg at 11/02/24 0943 ipratropium-albuterol (Duo-Neb) 0.5-2.5 mg/3 mL nebulizer solution 3 mL 3 mL Nebulization q4h PRN Sukumar South MD losartan (Cozaar) tablet 25 mg 25 mg Oral Daily Sukumar South MD 25 mg at 11/02/24 0944 metoprolol succinate XL (Toprol-XL) 24 hr tablet 100 mg 100 mg Oral BID Sukumar South MD 100 mg at 11/02/24 0943 mometasone-formoterol (Dulera 100) 100-5 MCG/ACT inhaler 2 puff 2 puff Inhalation BID Sukumar South MD 2 puff at 11/02/24 0942 montelukast (Singulair) tablet 10 mg 10 mg Oral Nightly Sukumar South MD 10 mg at 11/01/24 2215 nicotine (Nicoderm, Step 2) 14 MG/24HR patch 1 patch 1 patch TransDERmal Daily Sukumar South MD polyethylene glycol (PEG) 3350 (Miralax) packet 17 g 17 g Oral Daily PRN Sukumar South MD rosuvastatin (Crestor) tablet 40 mg 40 mg Oral Daily Sukumar South MD 40 mg at 11/02/24 0944 [Held by provider] sertraline (Zoloft) tablet 100 mg 100 mg Oral Daily Sukumar South MD spironolactone (Aldactone) tablet 25 mg 25 mg Oral Daily Sukumar South MD 25 mg at 11/02/24 0943 tiotropium (Spiriva Respimat) 2.5 MCG/ACT inhaler 2 puff 2 puff Inhalation Daily Sukumar South MD 2 puff at 11/02/24 0942 torsemide (Demadex) tablet 20 mg 20 mg Oral Daily Sukumar South MD 20 mg at 11/02/24 0944 Current Outpatient Medications Medication Sig Dispense Refill albuterol (2.5 MG/3ML) 0.083% nebulizer solution Take 3 mL (2.5 mg) by nebulization as needed for wheezing or shortness of breath. 75 mL 3 apixaban (Eliquis) 5 MG tablet Take 1 tablet (5 mg) by mouth 2 times daily. 60 tablet 11 dapagliflozin (Farxiga) 5 MG tablet Take 1 tablet (5 mg) by mouth daily. 30 tablet 11 Zglxvaqivkv-Arejcubzq-Rlkvpe (Trelegy Ellipta) 100-62.5-25 MCG/ACT aerosol powder Inhale 1 puff daily. (Patient not taking: Reported on 10/14/2024) 2 each 0 folic acid (Folvite) 1 MG tablet Take 1 tablet (1 mg) by mouth daily. 30 tablet 1 losartan (Cozaar) 25 MG tablet Take 1 tablet (25 mg) by mouth daily. 15 tablet 3 metoprolol succinate XL (Toprol-XL) 100 MG 24 hr tablet Take 1 tablet (100 mg) by mouth 2 times daily. Do not crush or chew. 180 tablet 0 montelukast (Singulair) 10 MG tablet Take 1 tablet (10 mg) by mouth Nightly. 90 tablet 0 rosuvastatin (Crestor) 40 MG tablet Take 1 tablet (40 mg) by mouth daily. 30 tablet 3 sertraline (Zoloft) 100 MG tablet Take 1 tablet (100 mg) by mouth daily. 30 tablet 3 spironolactone (Aldactone) 25 MG tablet Take 1 tablet (25 mg) by mouth daily. 30 tablet 5 torsemide (Demadex) 20 MG tablet Take 2 tablets (40 mg) by mouth 2 times daily. (Patient not taking: Reported on 10/14/2024) 120 tablet 2 torsemide (Demadex) 20 MG tablet Take 2.5 tablets (50 mg) by mouth 2 times daily for 7 days. 35 tablet 0 TECHNICAL ASPECTS: This routine scalp EEG study with video was carried out at [place]. Scalp electrodes were positioned in person by an nanotechnologist, following patient education, according to the 10-20 International system of electrode placement and maintained for integrity and quality of the recording. . EEG data with video was recorded continuously and digitally stored. The nanotechnologist reviewed all automated detections and manual events and prepared the data for archiving and provider review. Referential and bipolar montages were used for review. TECHNOLOGIST NOTES: No skull or scalp defects were observed. BACKGROUND ACTIVITY: Posterior background activity: A continuous organized and well-modulated 7.5 Hz, 10-60 uV rhythm was seen symmetrically over the posterior head regions bilaterally. Beta range: Fronto-centrally predominant beta range activity (15-25 Hz, 10-20 uV) was seen. Sleep: No sleep architecture was observed. Normal Variants: No normal variants were identified. SLOWING: Continuous (greater than 90% of the recording) LEFT frontotemporal (F7-T3-T4) irregular and, at times sharply contoured, delta-theta range (0.5-5.5 Hz, 10-100 uV) slow wave activity was observed. This activity was unresponsive to stimulation. Time Elapsed: 00:07:05 INTERICTAL EPILEPTIFORM ACTIVITY: No epileptiform activity was seen. ICTAL ACTIVITY: No ictal activity was seen. NON-EPILEPTIC EVENTS: None. ACTIVATION PROCEDURES: Photic stimulation was noncontributory. Hyperventilation was not performed. IMPRESSION AND ACTIONS TAKEN: This routine EEG with video is abnormal. Continuous LEFT frontotemporal sharply contoured slowing is observed not responsive to stimulation. No epileptiform activity nor seizures are captured. No sleep architecture is observed. The findings are consistent with a LEFT xwagrval-qt-htl quadrant cortical irritability superimposed on mild global cerebral dysfunction nonspecific as to etiology. Leonel Laurent MD PhD Epilepsy Attending [facility] [employer] Work Phone: 11-02-2024 Consult note Associated Order (s): IP CONSULT TO CARDIOLOGY [facility] [place] [facility] Consult Note Reason for Consult/Chief Complaint: Heart failure Consulting MD: Dr. Casper History of Present Illness: Krystina Markham is a 69 y.o. male admitted with altered mental status. We are consulted for HF. Mr. 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 He reports feeling fine, no complaints, no chest pain or SOB, no orthopnea or leg edema. He reports chronic stable NARAYANAN. Past Medical History: Past Medical History: Diagnosis Date Alcohol consumption heavy 09/10/2015 stopped 3w ago Asthma Atrial fibrillation ([facility]) CHF (congestive heart failure) ([facility]) 01/31/2016 COPD (chronic obstructive pulmonary disease) ([facility]) 09/10/2015 Cor, pulmonale, acute (CMS/HCC) ([facility]) Deep venous thrombosis ([facility]) 02/2016 Depression Hx of blood clots Obesity 09/10/2015 DELORES (obstructive sleep apnea) Pulmonary embolus ([facility]) 6 16 Raynaud phenomenon 09/10/2015 Smoker 09/10/2015 Past Surgical History: Past Surgical History: Procedure Laterality Date ABDOMINAL SURGERY BRONCHOSCOPY 02/25/2020 BRONCHOSCOPY (HISTORICAL) 02/25/2020 COLONOSCOPY 10/27/[address] CHEST ANGIOGRAM W AND/OR WO IV CONTRAST 07/12/2022 CT CHEST ANGIOGRAM W AND/OR WO IV CONTRAST 07/12/2022 [facility] CT IMAGING FINGER AMPUTATION Left HERNIA REPAIR NOSE SURGERY PACEMAKER (HISTORICAL) Family History: Family History Problem Relation Name Age of Onset Asthma Father Congenital Anomaly Father Cancer Father Asthma Sister Heart disease Mother Heart disease Brother Pacemaker Mother Congenital Anomaly Sister Cancer Mother Diabetes Mother Social History: Social History Tobacco Use Smoking status: Former Current packs/day: 0.25 Average packs/day: 0.3 packs/day for 52.4 years (13.1 ttl pk-yrs) Types: Cigarettes Start date: 1972 Smokeless tobacco: Never Tobacco comments: 8 cig daily Substance Use Topics Alcohol use: Not Currently Alcohol/week: 7.0 standard drinks of alcohol Types: 7 Cans of beer per week Comment: once beer daily Drug use: Never Medications: apixaban, 5 mg, Oral, BID dapagliflozin, 5 mg, Oral, Daily folic acid, 1 mg, Oral, Daily losartan, 25 mg, Oral, Daily metoprolol succinate XL, 100 mg, Oral, BID mometasone-formoterol, 2 puff, Inhalation, BID montelukast, 10 mg, Oral, Nightly nicotine, 1 patch, TransDERmal, Daily rosuvastatin, 40 mg, Oral, Daily [Held by provider] sertraline, 100 mg, Oral, Daily spironolactone, 25 mg, Oral, Daily tiotropium, 2 puff, Inhalation, Daily torsemide, 20 mg, Oral, Daily Allergies: Patient has no known allergies. Reviewed Review of Systems: All other systems were reviewed and are negative other than as noted in the HPI. Physical Examination: Vitals: Blood pressure 132/85, pulse 67, temperature 36.3 C (97.3 F), temperature source Temporal, resp. rate 20, height 5' 8" (1.727 m), weight 190 lb (86.2 kg), SpO2 (!) 88%. Intake/Output Summary (Last 24 hours) at 11/02/2024 1430 Last data filed at 11/02/2024 0900 Gross per 24 hour Intake 120 ml Output -- Net 120 ml Wt Readings from Last 3 Encounters: 11/01/24 190 lb (86.2 kg) 10/14/24 188 lb 14.4 oz (85.7 kg) 09/28/24 188 lb 12.8 oz (85.6 kg) Neck: no JVD. Respiratory: Lungs are clear. No rales or wheezes. Respiratory effort is normal and symmetrical bilaterally; Good air movement bilaterally. Heart: IRRR; Normal S1 and S2. no murmur; No rub; no gallop. Extremities/Skin: no LE edema; Skin warm to touch and well perfused Laboratory Tests: Results from last 7 days Lab Units 11/02/24 0648 11/01/24 1434 WBC AUTO 10*3/uL 8.2 7.6 HEMOGLOBIN g/dL 13.3 12.6* HEMOGLOBIN BG g/dl -- 13.7 HEMATOCRIT % 38.6* 36.7* MCV fL 86.9 87.2 PLATELETS 10*3/uL 234 229 Lab Results Component Value Date GLUCOSE 116 (H) 11/02/2024 CALCIUM 9.6 11/02/2024 NA 129 (L) 11/02/2024 K 5.0 11/02/2024 CO2 29 11/02/2024 CL 90 (L) 11/02/2024 BUN 15 11/02/2024 CREATININE 0.86 11/02/2024 Lab Results Component Value Date HGBA1C 5.9 (H) 02/14/2024 Lab Results Component Value Date TSH 0.60 09/11/2024 Lab Results Component Value Date CHOL 99 02/14/2024 CHOL 155 07/16/2022 Lab Results Component Value Date HDL 53 02/14/2024 HDL 90 (H) 07/16/2022 Lab Results Component Value Date LDLCALC 33 02/14/2024 LDLCALC 54 07/16/2022 Lab Results Component Value Date TRIG 64 02/14/2024 TRIG 53 07/16/2022 Lab Results Component Value Date CKTOTAL 150 11/01/2024 CKMB 4.1 02/14/2024 TROPONINI 0.025 02/14/2024 Assessment/Plan HFrEF: perfused, euvolemic, lexiscan in 2020 was negative for ischemia. -continue home HF regimen AF: permanent, nonvalvular, rate controlled and s/p RIDES SUPERVISOR with 13% BiV pacing only per prior device clinic visit. Continue home regimen. Follow up with Dr. Foote/device clinic as outpatient for pacemaker for pacing optimization. We will sign off. Continue to follow up as outpatient. Brant Rosas MD, FACC, FASE DATE of SERVICE: 11/02/2024 [employer] Work Phone: 11-02-2024 Consult note Associated Order (s): IP CONSULT TO CARDIOLOGY [facility] [place] [facility] Consult Note Reason for Consult/Chief Complaint: Heart failure Consulting MD: Dr. Casper History of Present Illness: Krystina Markham is a 69 y.o. male admitted with altered mental status. We are consulted for HF. Mr. 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 He reports feeling fine, no complaints, no chest pain or SOB, no orthopnea or leg edema. He reports chronic stable NARAYANAN. Past Medical History: Past Medical History: Diagnosis Date Alcohol consumption heavy 09/10/2015 stopped 3w ago Asthma Atrial fibrillation ([facility]) CHF (congestive heart failure) ([facility]) 01/31/2016 COPD (chronic obstructive pulmonary disease) ([facility]) 09/10/2015 Cor, pulmonale, acute (CMS/HCC) ([facility]) Deep venous thrombosis ([facility]) 02/2016 Depression Hx of blood clots Obesity 09/10/2015 DELORES (obstructive sleep apnea) Pulmonary embolus ([facility]) 6 16 Raynaud phenomenon 09/10/2015 Smoker 09/10/2015 Past Surgical History: Past Surgical History: Procedure Laterality Date ABDOMINAL SURGERY BRONCHOSCOPY 02/25/2020 BRONCHOSCOPY (HISTORICAL) 02/25/2020 COLONOSCOPY 10/27/[address] CHEST ANGIOGRAM W AND/OR WO IV CONTRAST 07/12/2022 CT CHEST ANGIOGRAM W AND/OR WO IV CONTRAST 07/12/2022 [facility] CT IMAGING FINGER AMPUTATION Left HERNIA REPAIR NOSE SURGERY PACEMAKER (HISTORICAL) Family History: Family History Problem Relation Name Age of Onset Asthma Father Congenital Anomaly Father Cancer Father Asthma Sister Heart disease Mother Heart disease Brother Pacemaker Mother Congenital Anomaly Sister Cancer Mother Diabetes Mother Social History: Social History Tobacco Use Smoking status: Former Current packs/day: 0.25 Average packs/day: 0.3 packs/day for 52.4 years (13.1 ttl pk-yrs) Types: Cigarettes Start date: 1972 Smokeless tobacco: Never Tobacco comments: 8 cig daily Substance Use Topics Alcohol use: Not Currently Alcohol/week: 7.0 standard drinks of alcohol Types: 7 Cans of beer per week Comment: once beer daily Drug use: Never Medications: apixaban, 5 mg, Oral, BID dapagliflozin, 5 mg, Oral, Daily folic acid, 1 mg, Oral, Daily losartan, 25 mg, Oral, Daily metoprolol succinate XL, 100 mg, Oral, BID mometasone-formoterol, 2 puff, Inhalation, BID montelukast, 10 mg, Oral, Nightly nicotine, 1 patch, TransDERmal, Daily rosuvastatin, 40 mg, Oral, Daily [Held by provider] sertraline, 100 mg, Oral, Daily spironolactone, 25 mg, Oral, Daily tiotropium, 2 puff, Inhalation, Daily torsemide, 20 mg, Oral, Daily Allergies: Patient has no known allergies. Reviewed Review of Systems: All other systems were reviewed and are negative other than as noted in the HPI. Physical Examination: Vitals: Blood pressure 132/85, pulse 67, temperature 36.3 C (97.3 F), temperature source Temporal, resp. rate 20, height 5' 8" (1.727 m), weight 190 lb (86.2 kg), SpO2 (!) 88%. Intake/Output Summary (Last 24 hours) at 11/02/2024 1430 Last data filed at 11/02/2024 0900 Gross per 24 hour Intake 120 ml Output -- Net 120 ml Wt Readings from Last 3 Encounters: 11/01/24 190 lb (86.2 kg) 10/14/24 188 lb 14.4 oz (85.7 kg) 09/28/24 188 lb 12.8 oz (85.6 kg) Neck: no JVD. Respiratory: Lungs are clear. No rales or wheezes. Respiratory effort is normal and symmetrical bilaterally; Good air movement bilaterally. Heart: IRRR; Normal S1 and S2. no murmur; No rub; no gallop. Extremities/Skin: no LE edema; Skin warm to touch and well perfused Laboratory Tests: Results from last 7 days Lab Units 11/02/24 0648 11/01/24 1434 WBC AUTO 10*3/uL 8.2 7.6 HEMOGLOBIN g/dL 13.3 12.6* HEMOGLOBIN BG g/dl -- 13.7 HEMATOCRIT % 38.6* 36.7* MCV fL 86.9 87.2 PLATELETS 10*3/uL 234 229 Lab Results Component Value Date GLUCOSE 116 (H) 11/02/2024 CALCIUM 9.6 11/02/2024 NA 129 (L) 11/02/2024 K 5.0 11/02/2024 CO2 29 11/02/2024 CL 90 (L) 11/02/2024 BUN 15 11/02/2024 CREATININE 0.86 11/02/2024 Lab Results Component Value Date HGBA1C 5.9 (H) 02/14/2024 Lab Results Component Value Date TSH 0.60 09/11/2024 Lab Results Component Value Date CHOL 99 02/14/2024 CHOL 155 07/16/2022 Lab Results Component Value Date HDL 53 02/14/2024 HDL 90 (H) 07/16/2022 Lab Results Component Value Date LDLCALC 33 02/14/2024 LDLCALC 54 07/16/2022 Lab Results Component Value Date TRIG 64 02/14/2024 TRIG 53 07/16/2022 Lab Results Component Value Date CKTOTAL 150 11/01/2024 CKMB 4.1 02/14/2024 TROPONINI 0.025 02/14/2024 Assessment/Plan HFrEF: perfused, euvolemic, lexiscan in 2020 was negative for ischemia. -continue home HF regimen AF: permanent, nonvalvular, rate controlled and s/p RIDES SUPERVISOR with 13% BiV pacing only per prior device clinic visit. Continue home regimen. Follow up with Dr. Foote/device clinic as outpatient for pacemaker for pacing optimization. We will sign off. Continue to follow up as outpatient. Brant Rosas MD, FACC, FASE DATE of SERVICE: 11/02/2024 documented in this encounter [facility] 11-01-2024 History and physical note Images from the original note were not included. Medical Teaching Service History & Physical Patient: Krystina Markham : 1955 Acct: [id number] PCP: Pedro Subramanian MD Admitting Physician: No admitting provider for patient encounter. Admission Date: 11/01/2024 Chief Complaint Patient presents with Altered Mental Status Pt presents to er from home via ems for altered mental status. Pt was found unresponsive by and was brought via ems. Pt presented to ems alert to verbal stimuli but confused to name, place, time and event. Pt presents to er alert to self only. Pt presents with normal speech and no stroke symptoms. History of Presenting Illness: Krystina Markhma is a 69 y.o. male who presents to the [facility] ED via EMS after being found unresponsive by his partner this afternoon upon returning from sikhism. Last known normal was believed to be 7 AM. PMHx: COPD, HFrEF with ICD, A-fib on Eliquis. On arrival patient had a an NIH score of 1 due to not remembering his month, and was confused but was able to answer questions. Was found to be hypercapnic with a CO2 of 58.2 on VBG and hyponatremic with a sodium of 127. Additionally he initially required 4 L nasal cannula in the ED, but was weaned to room air. During evaluation he seems to be at baseline. He is unable to recall any of his medications and relies on his ex- to organize them for him. He states that he feels well and has no complaints. He does not know exactly why ambulance brought him to ED but believes that he 'passed out'. Admits to smoking cigarettes, unable to quantify how much. Reports daily alcohol consumption but is unable to report amount and frequency. Denies illicit substance use. Past Medical History: Diagnosis Date Alcohol consumption heavy 09/10/2015 stopped 3w ago Asthma Atrial fibrillation ([facility]) CHF (congestive heart failure) ([facility]) 01/31/2016 COPD (chronic obstructive pulmonary disease) ([facility]) 09/10/2015 Cor, pulmonale, acute ([facility]/HCC) ([facility]) Deep venous thrombosis ([facility]) 02/2016 Depression Hx of blood clots Obesity 09/10/2015 DELORES (obstructive sleep apnea) Pulmonary embolus ([facility]) 6 16 Raynaud phenomenon 09/10/2015 Smoker 09/10/2015 Past Surgical History: Procedure Laterality Date ABDOMINAL SURGERY BRONCHOSCOPY 02/25/2020 BRONCHOSCOPY (HISTORICAL) 02/25/2020 COLONOSCOPY 10/27/[address] CHEST ANGIOGRAM W AND/OR WO IV CONTRAST 07/12/2022 CT CHEST ANGIOGRAM W AND/OR WO IV CONTRAST 07/12/2022 [facility] CT IMAGING FINGER AMPUTATION Left HERNIA REPAIR NOSE SURGERY PACEMAKER (HISTORICAL) Social History Socioeconomic History Marital status: Spouse name: Not on file Number of children: Not on file Years of education: Not on file Highest education level: Not on file Occupational History Not on file Tobacco Use Smoking status: Former Current packs/day: 0.25 Average packs/day: 0.3 packs/day for 52.4 years (13.1 ttl pk-yrs) Types: Cigarettes Start date: 1972 Smokeless tobacco: Never Tobacco comments: 8 cig daily Substance and Sexual Activity Alcohol use: Not Currently Alcohol/week: 7.0 standard drinks of alcohol Types: 7 Cans of beer per week Comment: once beer daily Drug use: Never Sexual activity: Not on file Other Topics Concern Not on file Social History Narrative Not on file Social Drivers of Health Financial Resource Strain: Low Risk (09/11/2024) Overall Financial Resource Strain (CARDIA) Difficulty of Paying Living Expenses: Not very hard Food Insecurity: No Food Insecurity (09/11/2024) Hunger Vital Sign Worried About Running Out of Food in the Last Year: Never true Ran Out of Food in the Last Year: Never true Transportation Needs: No Transportation Needs (09/11/2024) PRAPARE - Transportation Lack of Transportation (Medical): No Lack of Transportation (Non-Medical): No Physical Activity: Inactive (09/11/2024) Exercise Vital Sign Days of Exercise per Week: 0 days Minutes of Exercise per Session: 0 min Stress: No Stress Concern Present (09/11/2024) Citizen Of [place] of Occupational Health - Occupational Stress Questionnaire Feeling of Stress : Not at all Social Connections: Socially Isolated (09/11/2024) Social Connection and Isolation Panel [NHANES] Frequency of Communication with Friends and Family: Never Frequency of Social Gatherings with Friends and Family: Never Attends Zoroastrian Services: Never Active Member of Clubs or Organizations: No Attends Club or Organization Meetings: Never Marital Status: Intimate Partner Violence: Not At Risk (09/11/2024) Humiliation, Afraid, Rape, and Kick questionnaire Fear of Current or Ex-Partner: No Emotionally Abused: No Physically Abused: No Sexually Abused: No Housing Stability: Low Risk (09/11/2024) Housing Stability Vital Sign Unable to Pay for Housing in the Last Year: No Number of Times Moved in the Last Year: 0 Homeless in the Last Year: No Family History Problem Relation Name Age of Onset Asthma Father Congenital Anomaly Father Cancer Father Asthma Sister Heart disease Mother Heart disease Brother Pacemaker Mother Congenital Anomaly Sister Cancer Mother Diabetes Mother No current facility-administered medications on file prior to encounter. Current Outpatient Medications on File Prior to Encounter Medication Sig Dispense Refill albuterol (2.5 MG/3ML) 0.083% nebulizer solution Take 3 mL (2.5 mg) by nebulization as needed for wheezing or shortness of breath. 75 mL 3 apixaban (Eliquis) 5 MG tablet Take 1 tablet (5 mg) by mouth 2 times daily. 60 tablet 11 dapagliflozin (Farxiga) 5 MG tablet Take 1 tablet (5 mg) by mouth daily. 30 tablet 11 Hjjkrssvlix-Moffdeemu-Neejhl (Trelegy Ellipta) 100-62.5-25 MCG/ACT aerosol powder Inhale 1 puff daily. (Patient not taking: Reported on 10/14/2024) 2 each 0 folic acid (Folvite) 1 MG tablet Take 1 tablet (1 mg) by mouth daily. 30 tablet 1 losartan (Cozaar) 25 MG tablet Take 1 tablet (25 mg) by mouth daily. 15 tablet 3 metoprolol succinate XL (Toprol-XL) 100 MG 24 hr tablet Take 1 tablet (100 mg) by mouth 2 times daily. Do not crush or chew. 180 tablet 0 montelukast (Singulair) 10 MG tablet Take 1 tablet (10 mg) by mouth Nightly. 90 tablet 0 rosuvastatin (Crestor) 40 MG tablet Take 1 tablet (40 mg) by mouth daily. 30 tablet 3 sertraline (Zoloft) 100 MG tablet Take 1 tablet (100 mg) by mouth daily. 30 tablet 3 spironolactone (Aldactone) 25 MG tablet Take 1 tablet (25 mg) by mouth daily. 30 tablet 5 torsemide (Demadex) 20 MG tablet Take 2 tablets (40 mg) by mouth 2 times daily. (Patient not taking: Reported on 10/14/2024) 120 tablet 2 torsemide (Demadex) 20 MG tablet Take 2.5 tablets (50 mg) by mouth 2 times daily for 7 days. 35 tablet 0 Allergies: Patient has no known allergies. Review of Systems Constitutional: Negative for chills and fever. Respiratory: Positive for cough. Negative for shortness of breath. Cardiovascular: Negative for chest pain and leg swelling. Gastrointestinal: Negative for abdominal pain, constipation and diarrhea. Genitourinary: Negative for difficulty urinating and dysuria. Vitals: Vitals: 11/01/24 1500 11/01/24 1505 11/01/24 1530 11/01/24 1830 BP: 102/68 102/58 BP Location: Patient Position: Pulse: 80 65 65 68 Resp: 22 18 20 22 Temp: SpO2: 94% 96% 93% 97% Weight: Height: Physical Exam Constitutional: General: He is not in acute distress. Appearance: He is not ill-appearing, toxic-appearing or diaphoretic. HENT: Head: Atraumatic. Nose: Nose normal. Comments: Rhinophyma Mouth/Throat: Mouth: Mucous membranes are moist. Pharynx: Oropharynx is clear. No posterior oropharyngeal erythema. Eyes: General: No scleral icterus. Right eye: No discharge. Left eye: No discharge. Extraocular Movements: Extraocular movements intact. Pupils: Pupils are equal, round, and reactive to light. Cardiovascular: Rate and Rhythm: Normal rate and regular rhythm. Heart sounds: No murmur heard. Pulmonary: Effort: No respiratory distress. Breath sounds: Wheezing (Mild) present. No rhonchi or rales. Comments: Evaluated on room air Abdominal: General: Bowel sounds are normal. Palpations: There is no mass. Tenderness: There is no abdominal tenderness. There is no guarding. Musculoskeletal: Right lower le+ Edema present. Left lower le+ Edema present. Neurological: Mental Status: He is alert and oriented to person, place, and time. Mental status is at baseline. Cranial Nerves: No dysarthria or facial asymmetry. Motor: Motor function is intact. No weakness or tremor. Coordination: Coordination is intact. Lpwszx-Lzhv-Wtpefk Test normal. Rapid alternating movements normal. Gait: Gait is intact. Gait normal. Labs: Results for orders placed or performed during the hospital encounter of 11/01/24 CBC auto differential Collection Time: 11/01/24 2:34 PM Result Value Ref Range Auto WBC 7.6 3.6 - 10.7 10*3/uL RBC 4.21 (L) 4.40 - 5.90 10*6/uL Hemoglobin 12.6 (L) 13.0 - 18.0 g/dL Hematocrit 36.7 (L) 40.0 - 52.0 % MCV 87.2 77.0 - 99.0 fL MCH 29.9 26.0 - 34.0 pg MCHC 34.3 30.5 - 36.0 % RDW 13.2 11.5 - 15.0 % Platelets 229 140 - 440 10*3/uL MPV 9.3 9.0 - 12.7 fL nRBC 0.0 0.0 - 2.0 /100 WBCs Neutrophils Relative 81.1 38.0 - 82.0 % Lymphocytes Relative 10.0 (L) 15.0 - 45.0 % Monocytes Relative 6.5 5.0 - 13.0 % Eosinophils Relative 1.3 0.0 - 6.0 % Basophils Relative 0.7 0.0 - 2.0 % Immature Grans % 0.4 0.0 - 2.0 % Neutrophils Absolute 6.1 1.8 - 7.5 10*3/uL Lymphocytes Absolute 0.8 (L) 1.0 - 4.3 10*3/uL Monocytes Absolute 0.5 0.0 - 0.9 10*3/uL Eosinophils Absolute 0.1 0.0 - 0.5 10*3/uL Basophils Absolute 0.1 0.0 - 0.2 10*3/uL Immature Grans Absolute 0.0 <0.1 10*3/uL Basic metabolic panel Collection Time: 11/01/24 2:34 PM Result Value Ref Range SODIUM 127 (L) 136 - 145 mmol/L POTASSIUM 3.7 3.5 - 5.1 mmol/L CHLORIDE 88 (L) 98 - 107 mmol/L CARBON DIOXIDE 29 23 - 31 mmol/L UREA NITROGEN 11 9 - 23 mg/dL CREATININE 0.78 0.72 - 1.25 mg/dL GLUCOSE 151 (H) 82 - 115 mg/dL CALCIUM 9.0 8.8 - 10.0 mg/dL ANION GAP 10 3 - 13 mmol/L eGFR >90.0 >60.0 mL/min/1.73m*2 Hepatic function panel Collection Time: 11/01/24 2:34 PM Result Value Ref Range BILIRUBIN, TOTAL 1.1 <1.2 mg/dL BILIRUBIN, DIRECT 0.5 (H) <0.5 mg/dL ALKALINE PHOSPHATASE 90 40 - 150 U/L AST (SGOT) 30 <34 U/L ALT 10 <40 U/L ALBUMIN 3.6 3.4 - 4.8 g/dL TOTAL PROTEIN 7.3 6.4 - 8.3 g/dL Ammonia Collection Time: 11/01/24 2:34 PM Result Value Ref Range AMMONIA 31 18 - 72 umol/L Blood gas, venous Collection Time: 11/01/24 2:34 PM Result Value Ref Range pH, Venous 7.341 7.320 - 7.420 pCO2, Venous 58.2 (H) 38.0 - 56.0 mm Hg pO2, Venous 30.4 mm Hg HCO3, Venous 30.8 (H) 21.0 - 30.0 mmol/L O2 Sat, Venous 53.1 % Base Excess, Venous 3.5 (H) -3.0 - 3.0 mmol/L Hgb, blood gas 13.7 Screen only g/dl TCO2, Venous 32.6 (H) 23.0 - 30.0 mmol/L Source Of Oxygen Nasal Cannula (LPM) Amount Of Oxygen NT PRO BNP Collection Time: 11/01/24 2:34 PM Result Value Ref Range NT PRO BNP 4,147 (H) <125 pg/mL Serial Troponin, High Sensitivity Collection Time: 11/01/24 2:34 PM Result Value Ref Range Troponin HS Serial Baseline 16 <=35 ng/L Magnesium Collection Time: 11/01/24 2:34 PM Result Value Ref Range MAGNESIUM 1.7 1.6 - 2.6 mg/dL ECG 12 lead Collection Time: 11/01/24 2:38 PM Result Value Ref Range Heart Rate 64 bpm QRSD Interval 191 ms QT Interval 604 ms QTC Interval 625 ms P [place] 0 degrees QRS [place] 93 degrees T Wave [place] 266 degrees [place] Interval 0 ms SARS-CoV-2, Flu A/B, and RSV Combo Collection Time: 11/01/24 3:17 PM Specimen: Nasopharynx; Swab Result Value Ref Range SARS-CoV-2 Not Detected Not Detected Respiratory Syncytial Virus Not Detected Not Detected Influenza A Not Detected Not Detected Influenza B Not Detected Not Detected Troponin, High Sensitivity, Serial, Second Test Collection Time: 11/01/24 4:24 PM Result Value Ref Range 2h Troponin HS (Serial 2nd Troponin) 20 <=35 ng/L Ethanol Collection Time: 11/01/24 4:24 PM Result Value Ref Range ETHANOL IN SER/PLAS <10 <10 mg/dL Radiology review: CT head wo IV contrast Narrative: Patient Name: KRYSTINA MARKHAM : 1955 Exam Date/Time: 11/01/2024 14:34 Procedure: CT HEAD WO IV CONTRAST Ordering Provider: WONG MICHAEL Reason For Exam: Mental status change, unknown cause CT HEAD: CLINICAL INDICATION: Mental status change TECHNIQUE: Transaxial CT sequence performed through the head with 3 mm reconstruction. Sagittal and Coronal reconstruction images included. Dose reduction was employed with automated exposure control. COMPARISON: 08/20/2024 FINDINGS: Ventricles and sulci are prominent, consistent with age-related cerebral volume loss. There are scattered foci of hypoattenuation in the periventricular and subcortical white matter, which is nonspecific, but commonly seen with chronic small vessel ischemia. No extra-axial collection. No acute intracranial hemorrhage. No mass effect or midline shift. No CT evidence of an acute large territorial infarction. Vascular calcifications noted at the skull base. Imaged paranasal sinuses and mastoid air cells are well aerated. Calvarium is unremarkable. Impression: No acute intracranial hemorrhage or mass effect. Report Dictated on Electronically Signed By: Alek Erazo MD Electronically Signed Date/Time: 11/01/2024 3:19 PM EST XR chest 1 view Narrative: Patient Name: KRYSTINA MARKHAM : 1955 Exam Date/Time: 11/01/2024 14:50 Procedure: XR CHEST 1 VIEW Ordering Provider: WONG MICHAEL Reason For Exam: CHEST PAIN PORTABLE CHEST CLINICAL INDICATION: CHEST PAIN TECHNIQUE: Portable AP COMPARISON: 09/10/2024 FINDINGS: Pulmonary vascular congestion without overt edema. No focal consolidation. No pleural effusions or pneumothorax. The heart is mildly enlarged in size. There is calcification and tortuosity of the thoracic aorta. Left-sided dual-lead pacemaker device noted. Multiple chronic appearing deformities of the right-sided posterior ribs, likely related to remote trauma. Impression: Vascular congestion without overt edema. No focal consolidation. Report Dictated on Electronically Signed By: Alek Erazo MD Electronically Signed Date/Time: 11/01/2024 3:04 PM EST ECG 12 lead Afib/flut and V-paced complexes Biventricular paced rhythm No further rhythm analysis attempted due to paced rhythm Nonspecific intraventricular conduction delay Nonspecific repol abnrm, anterolateral leads Prolonged QT interval EKG: Encounter Date: 11/01/24 ECG 12 lead Result Value Heart Rate 64 QRSD Interval 191 QT Interval 604 QTC Interval 625 P [place] 0 QRS [place] 93 T Wave [place] 266 [place] Interval 0 Impression Afib/flut and V-paced complexes Biventricular paced rhythm No further rhythm analysis attempted due to paced rhythm Nonspecific intraventricular conduction delay Nonspecific repol abnrm, anterolateral leads Prolonged QT interval ED medications: Medications ipratropium-albuterol (Duo-Neb) 0.5-2.5 mg/3 mL nebulizer solution 3 mL (3 mL Nebulization Given 11/01/24 1505) ipratropium-albuterol (Duo-Neb) 0.5-2.5 mg/3 mL nebulizer solution 3 mL (3 mL Nebulization Given 11/01/24 1513) methylPREDNISolone sod suc (PF) (SOLU-Medrol) 40 MG injection 40 mg (40 mg IntraVENous Given 11/01/24 1517) ED COURSE: DuoNeb X2, IV methylprednisone 40 mg ASSESSMENT/PLAN: Acute hypercapnic Respiratory Failure Altered mental status - Admit to [facility] - delirium protocol - fall precautions - CBC/CMP daily - CK - MAT - PT/OT - Case management/social work HFrEF Biventricular ICD in place 07/2022, BNP 4,147 -Continue home Metoprolol succinate 100 mg twice daily -Continue home Losartan 25 mg daily -Continue home Spironolactone 25 mg daily -Continue home Torsemide 20 mg daily -Continue home Farxiga 5 mg daily COPD On RA currently -Oxygen goal of 88 to 92% -Continue home inhalers : Dulera and Spirvia (substituted for Trelegy Ellipta) -Continue home Singulair 10 mg nightly -Duonebs every 4h as needed QTc prolongation QTc 625 -Repeat EKG 11/02 -Avoid QT prolonging medications Chronic euvolemic hyponatremia Na 127 -Regular diet with no sodium restriction Anemia, mild Hemoglobin 12.6 -Monitor on CBC Atrial fibrillation Hasbled: 2 (age and alcohol use) moderate risk for major bleeding, rate controlled -Continue home Apixaban 5 mg BID -Continue home Metoprolol succinate 100mg BID Pulmonary HTN DELORES -Autopap therapy CAD -Continue home Rosuvastatin 40 mg Mood -Hold home sertraline 100 mg daily due to QTc prolongation Tobacco use -Nicotine patch Raynaud phenomenon vs Buerger's -Keep extremities warm as needed -Advise smoking cessation Moderate malnutrition -Encourage PO FEN/GI/DVT: IVF: None Electrolytes: Monitor and replace per protocols Diet: General GI PPX: No DVT Prophylaxis: No prophylaxis/Already on anticoagulation: Eliquis CODE STATUS: Full Problem list completed - Yes Case discussed with: Dr. Wiggins (Attending), Dr. Subramanian (PGY-3) Sukumar South MD Pager #: [phone] 11/01/2024 6:46 PM Cosigned by Jose M Wiggins MD at 11/02/2024 8:53 AM EST [facility] 11-01-2024 Note [facility] 11-01-2024 History and physical note Images from the original note were not included. Medical Teaching Service History & Physical Patient: Krystina Markham : 1955 Acct: [id number] PCP: Pedro Subramanian MD Admitting Physician: No admitting provider for patient encounter. Admission Date: 11/01/2024 Chief Complaint Patient presents with Altered Mental Status Pt presents to er from home via ems for altered mental status. Pt was found unresponsive by and was brought via ems. Pt presented to ems alert to verbal stimuli but confused to name, place, time and event. Pt presents to er alert to self only. Pt presents with normal speech and no stroke symptoms. History of Presenting Illness: Krystina Markham is a 69 y.o. male who presents to the [facility] ED via EMS after being found unresponsive by his partner this afternoon upon returning from [place]ikhism. Last known normal was believed to be 7 AM. PMHx: COPD, HFrEF with ICD, A-fib on Eliquis. On arrival patient had a an NIH score of 1 due to not remembering his month, and was confused but was able to answer questions. Was found to be hypercapnic with a CO2 of 58.2 on VBG and hyponatremic with a sodium of 127. Additionally he initially required 4 L nasal cannula in the ED, but was weaned to room air. During evaluation he seems to be at baseline. He is unable to recall any of his medications and relies on his ex- to organize them for him. He states that he feels well and has no complaints. He does not know exactly why ambulance brought him to ED but believes that he 'passed out'. Admits to smoking cigarettes, unable to quantify how much. Reports daily alcohol consumption but is unable to report amount and frequency. Denies illicit substance use. Past Medical History: Diagnosis Date Alcohol consumption heavy 09/10/2015 stopped 3w ago Asthma Atrial fibrillation ([facility]) CHF (congestive heart failure) ([facility]) 01/31/2016 COPD (chronic obstructive pulmonary disease) ([facility]) 09/10/2015 Cor, pulmonale, acute (CMS/HCC) ([facility]) Deep venous thrombosis ([facility]) 02/2016 Depression Hx of blood clots Obesity 09/10/2015 DELORES (obstructive sleep apnea) Pulmonary embolus ([facility]) 6 16 Raynaud phenomenon 09/10/2015 Smoker 09/10/2015 Past Surgical History: Procedure Laterality Date ABDOMINAL SURGERY BRONCHOSCOPY 02/25/2020 BRONCHOSCOPY (HISTORICAL) 02/25/2020 COLONOSCOPY 10/27/[address] CHEST ANGIOGRAM W AND/OR WO IV CONTRAST 07/12/2022 CT CHEST ANGIOGRAM W AND/OR WO IV CONTRAST 07/12/2022 [facility] CT IMAGING FINGER AMPUTATION Left HERNIA REPAIR NOSE SURGERY PACEMAKER (HISTORICAL) Social History Socioeconomic History Marital status: Spouse name: Not on file Number of children: Not on file Years of education: Not on file Highest education level: Not on file Occupational History Not on file Tobacco Use Smoking status: Former Current packs/day: 0.25 Average packs/day: 0.3 packs/day for 52.4 years (13.1 ttl pk-yrs) Types: Cigarettes Start date: 1972 Smokeless tobacco: Never Tobacco comments: 8 cig daily Substance and Sexual Activity Alcohol use: Not Currently Alcohol/week: 7.0 standard drinks of alcohol Types: 7 Cans of beer per week Comment: once beer daily Drug use: Never Sexual activity: Not on file Other Topics Concern Not on file Social History Narrative Not on file Social Drivers of Health Financial Resource Strain: Low Risk (09/11/2024) Overall Financial Resource Strain (CARDIA) Difficulty of Paying Living Expenses: Not very hard Food Insecurity: No Food Insecurity (09/11/2024) Hunger Vital Sign Worried About Running Out of Food in the Last Year: Never true Ran Out of Food in the Last Year: Never true Transportation Needs: No Transportation Needs (09/11/2024) PRAPARE - Transportation Lack of Transportation (Medical): No Lack of Transportation (Non-Medical): No Physical Activity: Inactive (09/11/2024) Exercise Vital Sign Days of Exercise per Week: 0 days Minutes of Exercise per Session: 0 min Stress: No Stress Concern Present (09/11/2024) Citizen Of [place] of Occupational Health - Occupational Stress Questionnaire Feeling of Stress : Not at all Social Connections: Socially Isolated (09/11/2024) Social Connection and Isolation Panel [NHANES] Frequency of Communication with Friends and Family: Never Frequency of Social Gatherings with Friends and Family: Never Attends Zoroastrian Services: Never Active Member of Clubs or Organizations: No Attends Club or Organization Meetings: Never Marital Status: Intimate Partner Violence: Not At Risk (09/11/2024) Humiliation, Afraid, Rape, and Kick questionnaire Fear of Current or Ex-Partner: No Emotionally Abused: No Physically Abused: No Sexually Abused: No Housing Stability: Low Risk (09/11/2024) Housing Stability Vital Sign Unable to Pay for Housing in the Last Year: No Number of Times Moved in the Last Year: 0 Homeless in the Last Year: No Family History Problem Relation Name Age of Onset Asthma Father Congenital Anomaly Father Cancer Father Asthma Sister Heart disease Mother Heart disease Brother Pacemaker Mother Congenital Anomaly Sister Cancer Mother Diabetes Mother No current facility-administered medications on file prior to encounter. Current Outpatient Medications on File Prior to Encounter Medication Sig Dispense Refill albuterol (2.5 MG/3ML) 0.083% nebulizer solution Take 3 mL (2.5 mg) by nebulization as needed for wheezing or shortness of breath. 75 mL 3 apixaban (Eliquis) 5 MG tablet Take 1 tablet (5 mg) by mouth 2 times daily. 60 tablet 11 dapagliflozin (Farxiga) 5 MG tablet Take 1 tablet (5 mg) by mouth daily. 30 tablet 11 Mpilqlekolt-Xsshhbwrz-Zuyrww (Trelegy Ellipta) 100-62.5-25 MCG/ACT aerosol powder Inhale 1 puff daily. (Patient not taking: Reported on 10/14/2024) 2 each 0 folic acid (Folvite) 1 MG tablet Take 1 tablet (1 mg) by mouth daily. 30 tablet 1 losartan (Cozaar) 25 MG tablet Take 1 tablet (25 mg) by mouth daily. 15 tablet 3 metoprolol succinate XL (Toprol-XL) 100 MG 24 hr tablet Take 1 tablet (100 mg) by mouth 2 times daily. Do not crush or chew. 180 tablet 0 montelukast (Singulair) 10 MG tablet Take 1 tablet (10 mg) by mouth Nightly. 90 tablet 0 rosuvastatin (Crestor) 40 MG tablet Take 1 tablet (40 mg) by mouth daily. 30 tablet 3 sertraline (Zoloft) 100 MG tablet Take 1 tablet (100 mg) by mouth daily. 30 tablet 3 spironolactone (Aldactone) 25 MG tablet Take 1 tablet (25 mg) by mouth daily. 30 tablet 5 torsemide (Demadex) 20 MG tablet Take 2 tablets (40 mg) by mouth 2 times daily. (Patient not taking: Reported on 10/14/2024) 120 tablet 2 torsemide (Demadex) 20 MG tablet Take 2.5 tablets (50 mg) by mouth 2 times daily for 7 days. 35 tablet 0 Allergies: Patient has no known allergies. Review of Systems Constitutional: Negative for chills and fever. Respiratory: Positive for cough. Negative for shortness of breath. Cardiovascular: Negative for chest pain and leg swelling. Gastrointestinal: Negative for abdominal pain, constipation and diarrhea. Genitourinary: Negative for difficulty urinating and dysuria. Vitals: Vitals: 11/01/24 1500 11/01/24 1505 11/01/24 1530 11/01/24 1830 BP: 102/68 102/58 BP Location: Patient Position: Pulse: 80 65 65 68 Resp: 22 18 20 22 Temp: SpO2: 94% 96% 93% 97% Weight: Height: Physical Exam Constitutional: General: He is not in acute distress. Appearance: He is not ill-appearing, toxic-appearing or diaphoretic. HENT: Head: Atraumatic. Nose: Nose normal. Comments: Rhinophyma Mouth/Throat: Mouth: Mucous membranes are moist. Pharynx: Oropharynx is clear. No posterior oropharyngeal erythema. Eyes: General: No scleral icterus. Right eye: No discharge. Left eye: No discharge. Extraocular Movements: Extraocular movements intact. Pupils: Pupils are equal, round, and reactive to light. Cardiovascular: Rate and Rhythm: Normal rate and regular rhythm. Heart sounds: No murmur heard. Pulmonary: Effort: No respiratory distress. Breath sounds: Wheezing (Mild) present. No rhonchi or rales. Comments: Evaluated on room air Abdominal: General: Bowel sounds are normal. Palpations: There is no mass. Tenderness: There is no abdominal tenderness. There is no guarding. Musculoskeletal: Right lower le+ Edema present. Left lower le+ Edema present. Neurological: Mental Status: He is alert and oriented to person, place, and time. Mental status is at baseline. Cranial Nerves: No dysarthria or facial asymmetry. Motor: Motor function is intact. No weakness or tremor. Coordination: Coordination is intact. Jxewto-Pmlw-Ilfxdb Test normal. Rapid alternating movements normal. Gait: Gait is intact. Gait normal. Labs: Results for orders placed or performed during the hospital encounter of 11/01/24 CBC auto differential Collection Time: 11/01/24 2:34 PM Result Value Ref Range Auto WBC 7.6 3.6 - 10.7 10*3/uL RBC 4.21 (L) 4.40 - 5.90 10*6/uL Hemoglobin 12.6 (L) 13.0 - 18.0 g/dL Hematocrit 36.7 (L) 40.0 - 52.0 % MCV 87.2 77.0 - 99.0 fL MCH 29.9 26.0 - 34.0 pg MCHC 34.3 30.5 - 36.0 % RDW 13.2 11.5 - 15.0 % Platelets 229 140 - 440 10*3/uL MPV 9.3 9.0 - 12.7 fL nRBC 0.0 0.0 - 2.0 /100 WBCs Neutrophils Relative 81.1 38.0 - 82.0 % Lymphocytes Relative 10.0 (L) 15.0 - 45.0 % Monocytes Relative 6.5 5.0 - 13.0 % Eosinophils Relative 1.3 0.0 - 6.0 % Basophils Relative 0.7 0.0 - 2.0 % Immature Grans % 0.4 0.0 - 2.0 % Neutrophils Absolute 6.1 1.8 - 7.5 10*3/uL Lymphocytes Absolute 0.8 (L) 1.0 - 4.3 10*3/uL Monocytes Absolute 0.5 0.0 - 0.9 10*3/uL Eosinophils Absolute 0.1 0.0 - 0.5 10*3/uL Basophils Absolute 0.1 0.0 - 0.2 10*3/uL Immature Grans Absolute 0.0 <0.1 10*3/uL Basic metabolic panel Collection Time: 11/01/24 2:34 PM Result Value Ref Range SODIUM 127 (L) 136 - 145 mmol/L POTASSIUM 3.7 3.5 - 5.1 mmol/L CHLORIDE 88 (L) 98 - 107 mmol/L CARBON DIOXIDE 29 23 - 31 mmol/L UREA NITROGEN 11 9 - 23 mg/dL CREATININE 0.78 0.72 - 1.25 mg/dL GLUCOSE 151 (H) 82 - 115 mg/dL CALCIUM 9.0 8.8 - 10.0 mg/dL ANION GAP 10 3 - 13 mmol/L eGFR >90.0 >60.0 mL/min/1.73m*2 Hepatic function panel Collection Time: 11/01/24 2:34 PM Result Value Ref Range BILIRUBIN, TOTAL 1.1 <1.2 mg/dL BILIRUBIN, DIRECT 0.5 (H) <0.5 mg/dL ALKALINE PHOSPHATASE 90 40 - 150 U/L AST (SGOT) 30 <34 U/L ALT 10 <40 U/L ALBUMIN 3.6 3.4 - 4.8 g/dL TOTAL PROTEIN 7.3 6.4 - 8.3 g/dL Ammonia Collection Time: 11/01/24 2:34 PM Result Value Ref Range AMMONIA 31 18 - 72 umol/L Blood gas, venous Collection Time: 11/01/24 2:34 PM Result Value Ref Range pH, Venous 7.341 7.320 - 7.420 pCO2, Venous 58.2 (H) 38.0 - 56.0 mm Hg pO2, Venous 30.4 mm Hg HCO3, Venous 30.8 (H) 21.0 - 30.0 mmol/L O2 Sat, Venous 53.1 % Base Excess, Venous 3.5 (H) -3.0 - 3.0 mmol/L Hgb, blood gas 13.7 Screen only g/dl TCO2, Venous 32.6 (H) 23.0 - 30.0 mmol/L Source Of Oxygen Nasal Cannula (LPM) Amount Of Oxygen NT PRO BNP Collection Time: 11/01/24 2:34 PM Result Value Ref Range NT PRO BNP 4,147 (H) <125 pg/mL Serial Troponin, High Sensitivity Collection Time: 11/01/24 2:34 PM Result Value Ref Range Troponin HS Serial Baseline 16 <=35 ng/L Magnesium Collection Time: 11/01/24 2:34 PM Result Value Ref Range MAGNESIUM 1.7 1.6 - 2.6 mg/dL ECG 12 lead Collection Time: 11/01/24 2:38 PM Result Value Ref Range Heart Rate 64 bpm QRSD Interval 191 ms QT Interval 604 ms QTC Interval 625 ms P [place] 0 degrees QRS [place] 93 degrees T Wave [place] 266 degrees [place] Interval 0 ms SARS-CoV-2, Flu A/B, and RSV Combo Collection Time: 11/01/24 3:17 PM Specimen: Nasopharynx; Swab Result Value Ref Range SARS-CoV-2 Not Detected Not Detected Respiratory Syncytial Virus Not Detected Not Detected Influenza A Not Detected Not Detected Influenza B Not Detected Not Detected Troponin, High Sensitivity, Serial, Second Test Collection Time: 11/01/24 4:24 PM Result Value Ref Range 2h Troponin HS (Serial 2nd Troponin) 20 <=35 ng/L Ethanol Collection Time: 11/01/24 4:24 PM Result Value Ref Range ETHANOL IN SER/PLAS <10 <10 mg/dL Radiology review: CT head wo IV contrast Narrative: Patient Name: KRYSTINA MARKHAM : 1955 Exam Date/Time: 11/01/2024 14:34 Procedure: CT HEAD WO IV CONTRAST Ordering Provider: WONG MICHAEL Reason For Exam: Mental status change, unknown cause CT HEAD: CLINICAL INDICATION: Mental status change TECHNIQUE: Transaxial CT sequence performed through the head with 3 mm reconstruction. Sagittal and Coronal reconstruction images included. Dose reduction was employed with automated exposure control. COMPARISON: 08/20/2024 FINDINGS: Ventricles and sulci are prominent, consistent with age-related cerebral volume loss. There are scattered foci of hypoattenuation in the periventricular and subcortical white matter, which is nonspecific, but commonly seen with chronic small vessel ischemia. No extra-axial collection. No acute intracranial hemorrhage. No mass effect or midline shift. No CT evidence of an acute large territorial infarction. Vascular calcifications noted at the skull base. Imaged paranasal sinuses and mastoid air cells are well aerated. Calvarium is unremarkable. Impression: No acute intracranial hemorrhage or mass effect. Report Dictated on Electronically Signed By: Alek Erazo MD Electronically Signed Date/Time: 11/01/2024 3:19 PM EST XR chest 1 view Narrative: [facility] Name[facility] KRYST[facility]KH[facility] 1955 [id number] Exam Date/Time: 11/01/2024 14:50 Procedure: XR CHEST 1 VIEW Ordering Provider: WONG MICHAEL Reason For Exam: CHEST PAIN PORTABLE CHEST CLINICAL INDICATION: CHEST PAIN TECHNIQUE: Portable AP COMPARISON: 09/10/2024 FINDINGS: Pulmonary vascular congestion without overt edema. No focal consolidation. No pleural effusions or pneumothorax. The heart is mildly enlarged in size. There is calcification and tortuosity of the thoracic aorta. Left-sided dual-lead pacemaker device noted. Multiple chronic appearing deformities of the right-sided posterior ribs, likely related to remote trauma. Impression: Vascular congestion without overt edema. No focal consolidation. Report Dictated on Electronically Signed By: Alek Erazo MD Electronically Signed Date/Time: 11/01/2024 3:04 PM EST ECG 12 lead Afib/flut and V-paced complexes Biventricular paced rhythm No further rhythm analysis attempted due to paced rhythm Nonspecific intraventricular conduction delay Nonspecific repol abnrm, anterolateral leads Prolonged QT interval EKG: Encounter Date: 11/01/24 ECG 12 lead Result Value Heart Rate 64 QRSD Interval 191 QT Interval 604 QTC Interval 625 P [place] 0 QRS [place] 93 T Wave [place] 266 VA Interval 0 Impression Afib/flut and V-paced complexes Biventricular paced rhythm No further rhythm analysis attempted due to paced rhythm Nonspecific intraventricular conduction delay Nonspecific repol abnrm, anterolateral leads Prolonged QT interval ED medications: Medications ipratropium-albuterol (Duo-Neb) 0.5-2.5 mg/3 mL nebulizer solution 3 mL (3 mL Nebulization Given 11/01/24 1505) ipratropium-albuterol (Duo-Neb) 0.5-2.5 mg/3 mL nebulizer solution 3 mL (3 mL Nebulization Given 11/01/24 1513) methylPREDNISolone sod suc (PF) (SOLU-Medrol) 40 MG injection 40 mg (40 mg IntraVENous Given 11/01/24 1517) ED COURSE: DuoNeb X2, IV methylprednisone 40 mg ASSESSMENT/PLAN: Acute hypercapnic Respiratory Failure Altered mental status - Admit to [facility] - delirium protocol - fall precautions - CBC/CMP daily - CK - MAT - PT/OT - Case management/social work HFrEF Biventricular ICD in place 07/2022, BNP 4,147 -Continue home Metoprolol succinate 100 mg twice daily -Continue home Losartan 25 mg daily -Continue home Spironolactone 25 mg daily -Continue home Torsemide 20 mg daily -Continue home Farxiga 5 mg daily COPD On RA currently -Oxygen goal of 88 to 92% -Continue home inhalers : Dulera and Spirvia (substituted for Trelegy Ellipta) -Continue home Singulair 10 mg nightly -Duonebs every 4h as needed QTc prolongation QTc 625 -Repeat EKG 11/02 -Avoid QT prolonging medications Chronic euvolemic hyponatremia Na 127 -Regular diet with no sodium restriction Anemia, mild Hemoglobin 12.6 -Monitor on CBC Atrial fibrillation Hasbled: 2 (age and alcohol use) moderate risk for major bleeding, rate controlled -Continue home Apixaban 5 mg BID -Continue home Metoprolol succinate 100mg BID Pulmonary HTN DELORES -Autopap therapy CAD -Continue home Rosuvastatin 40 mg Mood -Hold home sertraline 100 mg daily due to QTc prolongation Tobacco use -Nicotine patch Raynaud phenomenon vs Buerger's -Keep extremities warm as needed -Advise smoking cessation Moderate malnutrition -Encourage PO FEN/GI/DVT: IVF: None Electrolytes: Monitor and replace per protocols Diet: General GI PPX: No DVT Prophylaxis: No prophylaxis/Already on anticoagulation: Eliquis CODE STATUS: Full Problem list completed - Yes Case discussed with: Dr. Wiggins (Attending), Dr. Subramanian (PGY-3) Sukumar South MD Pager #: [phone] 11/01/2024 6:46 PM Cosigned by Jose M Wiggins MD at 11/02/2024 8:53 AM EST documented in this encounter [facility] 11-01-2024 Emergency department Note RT called for breathing TX. [facility] 11-01-2024 Emergency department Note RT called for breathing TX. Pt placed on 4 lpm nasal canula due to hypoxia. Unknown last know well. Best estimated time would be around 0700 when left for sikhism. Emergency Department Encounter [facility] ED Patient: Krystina Markham : 1955 Date of Evaluation: 11/01/2024 ED Supervising Physician: Charlie Mcintyre MD I independently examined and evaluated Krystina Markham. This will serve as my Supervisory note and shared attestation. I did perform a substantive portion of the visit including all aspects of the Medical Decision Making. I wore appropriate PPE for the entirety of this encounter. In brief, Krystina Markham is a 69 y.o. that presents to the emergency department after being found unresponsive by his this afternoon. Last seen normal around 7 AM. Patient is confused. He denies complaints. He denies headache, numbness, weakness, shortness of breath, chest pain, abdominal pain. Focused exam: Constitutional: No acute distress HEENT:Head: Atraumatic Eyes: Conjunctivae normal. PERRLA, EOMI, visual diggs full ENT: Mucous membranes moist. Normal oropharynx Neck: Normal ROM, supple CV: RRR, radial pulses equal RESP: X-ray wheezing bilaterally, good respiratory effort, no increased wob GI: Abdomen soft, non-tender, non-distended, +BS, no guarding or rebound tenderness MSK: Normal bulk and tone, no gross deformity EXTR: Warm and well perfused, no edema SKIN: No rash/bruising/erythema PSYCH: Appropriate affect, cooperative behavior NEURO: Alert and oriented x 2, face symmetric, no slurred speech, CN2-12 intact, motor and sensory intact and equal bilaterally. No upper or lower extremity drift. Cerebellar (finger-nose, [id number]) normal. Brief ED course/MDM: Patient nontoxic. Vitals normal on 4 L nasal cannula. NIHSS is 1 for mild confusion though this is likely due to encephalopathy rather than stroke as there are no lateralizing deficits. Workup is significant for wheezing on exam, mildly elevated pCO2 on VBG. Chest x-ray with no edema. No evidence of pneumonia. proBNP elevated. Mild hyponatremia. Minimal anemia. Wheezing improved after DuoNeb's. Also given methylprednisolone 40 mg IV for suspected COPD exacerbation. Admitted for continued workup and treatment. ED Course as of 11/01/242046 [place] Nov 01, [address] head wo IV contrast CT head ordered to evaluate for acute bleed, cranial fracture, space occupying lesions is negative for acute bleed, cranial fracture, space occupying lesions on my interpretation. No acute abnormalities on the radiologist's final read. [NAYA] ED Course User Index [NAYA] Charlie Mcintyre MD Diagnoses as of 11/01/242046 Acute hypercapnic respiratory failure (HCC) I personally saw the patient and made/approved the management plan and take responsibility for the patient management. All diagnostic, treatment, and disposition decisions were made by myself in conjunction with the resident. For all further details of the patient's emergency department visit, please see their documentation. (Comment: Please note this report has been produced using speech recognition software and may contain errors related to that system including errors in grammar, punctuation, and spelling, as well as words and phrases that may be inappropriate. If there are any questions or concerns please feel free to contact the dictating provider for clarification.) Charlie Mcintyre MD Acute Care [facility] Charlie Mcintyre MD 11/01/242008 EMERGENCY DEPARTMENT ENCOUNTER Pt Name: Krystina Markham Birthdate 1955 Date of evaluation: 11/01/2024 ED Provider: Karthik Wong MD CHIEF COMPLAINT Chief Complaint Patient presents with Altered Mental Status Pt presents to er from home via ems for altered mental status. Pt was found unresponsive by and was brought via ems. Pt presented to ems alert to verbal stimuli but confused to name, place, time and event. Pt presents to er alert to self only. Pt presents with normal speech and no stroke symptoms. HISTORY OF PRESENT ILLNESS (Location/Symptom, Timing/Onset, Context/Setting, Quality, Duration, Modifying Factors, Severity) Note limiting factors. I wore appropriate PPE for the entirety of this encounter. HPI this is a 69-year-old male with past medical history of alcohol abuse, atrial fibrillation on Eliquis, CHF and COPD who presents to the emergency department due to concerns for altered mental status from home. According to report the patient was unresponsive for his upon returning from sikhism this morning. By the time EMS arrived he was more arousable however still appeared confused. Patient himself denies any chest pain shortness of breath or other subjective symptoms. He endorses drinking alcohol the previous evening however denies any other illicit drug use. He is alert and oriented x 2 and has an NIH of 1 for confusion on initial arrival. Nursing Notes were reviewed. Limitations to history: None Outside historians: None REVIEW OF SYSTEMS Review of Systems Pertinent positives and negatives as per HPI. PAST MEDICAL HISTORY Past Medical History: Diagnosis Date Alcohol consumption heavy 09/10/2015 stopped 3w ago Asthma Atrial fibrillation (HCC) CHF (congestive heart failure) (HCC) 01/31/2016 COPD (chronic obstructive pulmonary disease) (HCC) 09/10/2015 Cor, pulmonale, acute (CMS/HCC) (HCC) Deep venous thrombosis (HCC) 02/2016 Depression Hx of blood clots Obesity 09/10/2015 DELORES (obstructive sleep apnea) Pulmonary embolus (HCC) 6 16 Raynaud phenomenon 09/10/2015 Smoker 09/10/2015 SURGICAL HISTORY Past Surgical History: Procedure Laterality Date ABDOMINAL SURGERY BRONCHOSCOPY 02/25/2020 BRONCHOSCOPY (HISTORICAL) 02/25/2020 COLONOSCOPY 10/27/[address] CHEST ANGIOGRAM W AND/OR WO IV CONTRAST 07/12/2022 CT CHEST ANGIOGRAM W AND/OR WO IV CONTRAST 07/12/2022 [facility] CT IMAGING FINGER AMPUTATION Left HERNIA REPAIR NOSE SURGERY PACEMAKER (HISTORICAL) CURRENT MEDICATIONS Previous Medications ALBUTEROL (2.5 MG/3ML) 0.083% NEBULIZER SOLUTION Take 3 mL (2.5 mg) by nebulization as needed for wheezing or shortness of breath. APIXABAN (ELIQUIS) 5 MG TABLET Take 1 tablet (5 mg) by mouth 2 times daily. DAPAGLIFLOZIN (FARXIGA) 5 MG TABLET Take 1 tablet (5 mg) by mouth daily. ZQDJYRPLHSI-NAYKHMKRJ-XCICYL (TRELEGY ELLIPTA) 100-62.5-25 MCG/ACT AEROSOL POWDER Inhale 1 puff daily. FOLIC ACID (FOLVITE) 1 MG TABLET Take 1 tablet (1 mg) by mouth daily. LOSARTAN (COZAAR) 25 MG TABLET Take 1 tablet (25 mg) by mouth daily. METOPROLOL SUCCINATE XL (TOPROL-XL) 100 MG 24 HR TABLET Take 1 tablet (100 mg) by mouth 2 times daily. Do not crush or chew. MONTELUKAST (SINGULAIR) 10 MG TABLET Take 1 tablet (10 mg) by mouth Nightly. ROSUVASTATIN (CRESTOR) 40 MG TABLET Take 1 tablet (40 mg) by mouth daily. SERTRALINE (ZOLOFT) 100 MG TABLET Take 1 tablet (100 mg) by mouth daily. SPIRONOLACTONE (ALDACTONE) 25 MG TABLET Take 1 tablet (25 mg) by mouth daily. TORSEMIDE (DEMADEX) 20 MG TABLET Take 2 tablets (40 mg) by mouth 2 times daily. TORSEMIDE (DEMADEX) 20 MG TABLET Take 2.5 tablets (50 mg) by mouth 2 times daily for 7 days. ALLERGIES Patient has no known allergies. FAMILY HISTORY Family History Problem Relation Name Age of Onset Asthma Father Congenital Anomaly Father Cancer Father Asthma Sister Heart disease Mother Heart disease Brother Pacemaker Mother Congenital Anomaly Sister Cancer Mother Diabetes Mother SOCIAL HISTORY Social History Socioeconomic History Marital status: Tobacco Use Smoking status: Former Current packs/day: 0.25 Average packs/day: 0.3 packs/day for 52.4 years (13.1 ttl pk-yrs) Types: Cigarettes Start date: 1972 Smokeless tobacco: Never Tobacco comments: 8 cig daily Substance and Sexual Activity Alcohol use: Not Currently Alcohol/week: 7.0 standard drinks of alcohol Types: 7 Cans of beer per week Comment: once beer daily Drug use: Never Social Drivers of Health Financial Resource Strain: Low Risk (09/11/2024) Overall Financial Resource Strain (CARDIA) Difficulty of Paying Living Expenses: Not very hard Food Insecurity: No Food Insecurity (09/11/2024) Hunger Vital Sign Worried About Running Out of Food in the Last Year: Never true Ran Out of Food in the Last Year: Never true Transportation Needs: No Transportation Needs (09/11/2024) PRAPARE - Transportation Lack of Transportation (Medical): No Lack of Transportation (Non-Medical): No Physical Activity: Inactive (09/11/2024) Exercise Vital Sign Days of Exercise per Week: 0 days Minutes of Exercise per Session: 0 min Stress: No Stress Concern Present (09/11/2024) Citizen Of [place] of Occupational Health - Occupational Stress Questionnaire Feeling of Stress : Not at all Social Connections: Socially Isolated (09/11/2024) Social Connection and Isolation Panel [NHANES] Frequency of Communication with Friends and Family: Never Frequency of Social Gatherings with Friends and Family: Never Attends Zoroastrian Services: Never Active Member of Clubs or Organizations: No Attends Club or Organization Meetings: Never Marital Status: Intimate Partner Violence: Not At Risk (09/11/2024) Humiliation, Afraid, Rape, and Kick questionnaire Fear of Current or Ex-Partner: No Emotionally Abused: No Physically Abused: No Sexually Abused: No Housing Stability: Low Risk (09/11/2024) Housing Stability Vital Sign Unable to Pay for Housing in the Last Year: No Number of Times Moved in the Last Year: 0 Homeless in the Last Year: No SCREENINGS Earl Coma Scale Best Eye Response: Spontaneous Best Verbal Response: Confused Best Motor Response: Follows commands Earl Coma Scale Score: 14 NIH Stroke Scale 1A. Level of Consciousness: Alert, Keenly Responsive 1B. Ask Month and Age: 1 Question Right 1C. Blink Eyes & Squeeze Hands: Performs Both Tasks 2. Best Gaze: Normal 3. Visual: No Visual Loss 4. Facial Palsy: Normal Symmetrical Movements 5A. Motor - Left Arm: No Drift 5B. Motor - Right Arm: No Drift 6A. Motor - Left Leg: No Drift 6B. Motor - Right Leg: No Drift 7. Limb Ataxia: Absent 8. Sensory Loss: Normal 9. Best Language: No Aphasia 10. Dysarthria: Normal 11. Extinction and Inattention: No Abnormality NIH Stroke Scale: 1 PHYSICAL EXAM ED Triage Vitals [11/01/24 1357] Temp Heart Rate Resp BP 36.7 C (98.1 F) 75 18 113/83 SpO2 Temp src Heart Rate Source Patient Position (!) 82 % -- -- Sitting BP Location FiO2 (%) Left arm -- PE: GENERAL APPEARANCE: Awake and alert. Cooperative. No acute distress. HEAD: Normocephalic. Atraumatic. EYES: EOM's grossly intact. Sclera anicteric. ENT: Mucous membranes are moist. Tolerates saliva. No trismus. NECK: Supple. No meningismus. Trachea midline. HEART: RRR. Radial pulses 2+. LUNGS: Respirations unlabored. CTAB ABDOMEN: Soft. Non-tender. No guarding or rebound. BACK: Atraumatic. No midline tenderness, step offs or deformities. No CVA tenderness. EXTREMITIES: No acute deformities. Full ROM in all 4 extremities. No numbness or paresthesias. Pulses intact. Capillary refill <2 sec. SKIN: Warm and dry. NEUROLOGICAL: No gross facial drooping. Moves all 4 extremities spontaneously. PSYCHIATRIC: Normal mood. DIAGNOSTIC RESULTS Procedures/EKG: EKG read per attending as applicable RADIOLOGY (Per Emergency Physician): Interpretation per the Radiologist below, if available at the time of this note: XR chest 1 view Final Result Vascular congestion without overt edema. No focal consolidation. Report Dictated on Electronically Signed By: Alek Erazo MD Electronically Signed Date/Time: 11/01/2024 3:[address] head wo IV contrast Final Result No acute intracranial hemorrhage or mass effect. Report Dictated on Electronically Signed By: Alek Erazo MD Electronically Signed Date/Time: 11/01/2024 3:19 PM EST ED BEDSIDE ULTRASOUND: Performed by ED Physician - none LABS: Labs Reviewed CBC WITH AUTO DIFFERENTIAL - Abnormal Result Value Auto WBC 7.6 RBC 4.21 (*) Hemoglobin 12.6 (*) Hematocrit 36.7 (*) MCV 87.2 MCH 29.9 MCHC 34.3 RDW 13.2 Platelets 229 MPV 9.3 nRBC 0.0 Neutrophils Relative 81.1 Lymphocytes Relative 10.0 (*) Monocytes Relative 6.5 Eosinophils Relative 1.3 Basophils Relative 0.7 Immature Grans % 0.4 Neutrophils Absolute 6.1 Lymphocytes Absolute 0.8 (*) Monocytes Absolute 0.5 Eosinophils Absolute 0.1 Basophils Absolute 0.1 Immature Grans Absolute 0.0 BASIC METABOLIC PANEL - Abnormal SODIUM 127 (*) POTASSIUM 3.7 CHLORIDE 88 (*) CARBON DIOXIDE 29 UREA NITROGEN 11 CREATININE 0.78 GLUCOSE 151 (*) CALCIUM 9.0 ANION GAP 10 eGFR >90.0 HEPATIC FUNCTION PANEL - Abnormal BILIRUBIN, TOTAL 1.1 BILIRUBIN, DIRECT 0.5 (*) ALKALINE PHOSPHATASE 90 AST (SGOT) 30 ALT 10 ALBUMIN 3.6 TOTAL PROTEIN 7.3 BLOOD GAS, VENOUS - Abnormal pH, Venous 7.341 pCO2, Venous 58.2 (*) pO2, Venous 30.4 HCO3, Venous 30.8 (*) O2 Sat, Venous 53.1 Base Excess, Venous 3.5 (*) Hgb, blood gas 13.7 TCO2, Venous 32.6 (*) Source Of Oxygen Nasal Cannula (LPM) Amount Of Oxygen Narrative: Assessment of oxygenation is best done with an arterial blood gas determination. Reference ranges for pO2, bicarbonate, and base excess are for mixed venous blood. Specimens drawn from a peripheral vein will often have higher values. NT PRO BNP - Abnormal NT PRO BNP 4,147 (*) SARS-COV-2, FLU A/B, AND RSV COMBO - Normal SARS-CoV-2 Not Detected Respiratory Syncytial Virus Not Detected Influenza A Not Detected Influenza B Not Detected Narrative: Methodology: real-time, RT-PCR The SARS-CoV-2, Flu A/B, and RSV Combo assay is intended for in vitro diagnostic use under the FDA Emergency Use Authorization (EUA). This test has not been FDA cleared or approved. In compliance with this authorization, please visit www.fda.gov/media/781236/download or www.fda.gov/media/618263/download to access the applicable information sheets. AMMONIA - Normal AMMONIA 31 HIGH SENSITIVITY TROPONIN, SERIAL BASELINE - Normal Troponin HS Serial Baseline 16 HIGH SENSITIVITY TROPONIN, SERIAL, SECOND TEST - Normal 2h Troponin HS (Serial 2nd Troponin) 20 MAGNESIUM - Normal MAGNESIUM 1.7 Narrative: Higher values can be expected in females during menses. COMPLETE URINALYSIS WITH REFLEX TO CULTURE Narrative: The following orders were created for panel order Complete Urinalysis with reflex to Culture. Procedure Abnormality Status --------- ------ Complete Urinalysis[[id number]] Please view results for these tests on the individual orders. COMPLETE URINALYSIS HIGH SENSITIVITY TROPONIN, SERIAL, THIRD TEST ETHANOL All other labs were within normal range or not returned as of this dictation. EMERGENCY DEPARTMENT COURSE and DIFFERENTIAL DIAGNOSIS/MDM: Vitals: Vitals: 11/01/24 1406 11/01/24 1500 11/01/24 1505 11/01/24 1530 BP: 102/68 102/58 BP Location: Patient Position: Pulse: 80 65 65 Resp: 22 18 20 Temp: SpO2: 96% 94% 96% 93% Weight: Height: MDM: See HPI above. Patient is a 69-year-old male with past medical history as described above who presents to the emergency department complaining of altered mental status of uncertain cause. The patient has multiple medical comorbidities that could contribute to encephalopathy including poorly controlled COPD, CHF, electrolyte derangements and alcohol use. The patient CT of his head was negative for any acute process. He has an NIH on my evaluation was 1 for confusion secondary to inability to know his age. He otherwise showed no evidence of focal neurologic deficits. His ammonia was within normal limits. He did have a mild hyponatremia of 127 which is mildly decreased and not at his chronic baseline level. Based on this evaluation with uncertain cause of his altered mental status and the fact that it was persisting we felt the patient should be admitted to the hospital for further workup and management. This was discussed with the admitting hospitalist team who agreed to evaluate the patient for admission. Patient was separately admitted to the family medicine service in stable condition. Please see separate provider notes for the remainder the patient's hospital course and ultimate disposition. ED Course as of 11/01/242154 Sun Nov 01, [address] head wo IV contrast CT head ordered to evaluate for acute bleed, cranial fracture, space occupying lesions is negative for acute bleed, cranial fracture, space occupying lesions on my interpretation. No acute abnormalities on the radiologist's final read. [NAYA] ED Course User Index [NAYA] Charlie Mcintyre MD Diagnoses as of 11/01/242154 Acute hypercapnic respiratory failure (HCC) Medications ipratropium-albuterol (Duo-Neb) 0.5-2.5 mg/3 mL nebulizer solution 3 mL (3 mL Nebulization Given 11/01/24 1505) ipratropium-albuterol (Duo-Neb) 0.5-2.5 mg/3 mL nebulizer solution 3 mL (3 mL Nebulization Given 11/01/24 1513) methylPREDNISolone sod suc (PF) (SOLU-Medrol) 40 MG injection 40 mg (40 mg IntraVENous Given 11/01/24 1517) PROCEDURES: Unless otherwise noted below, none Procedures FINAL IMPRESSION No diagnosis found. DISPOSITION PATIENT REFERRED TO: No follow-up provider specified. DISCHARGE MEDICATIONS: New Prescriptions No medications on file (Comment: Please note this report has been produced using speech recognition software and may contain errors related to that system including errors in grammar, punctuation, and spelling, as well as words and phrases that may be inappropriate. If there are any questions or concerns please feel free to contact the dictating provider for clarification.) Karthik Wong MD (electronically signed) Emergency Medicine Provider Karthik Wong MD Resident 11/01/242157 Cosigned by Charlie Mcintyre MD at 11/02/2024 1:00 AM EST Pt presents to er from home via ems for altered mental status. Pt was found unresponsive by and was brought via ems. Pt presented to ems alert to verbal stimuli but confused to name, place, time and event. Pt presents to er alert to self only. Pt presents with normal speech and no stroke symptoms. documented in this encounter [facility] 11-01-2024 Emergency department Note Pt placed on 4 lpm nasal canula due to hypoxia. [facility] 11-01-2024 Emergency department Note Unknown last know well. Best estimated time would be around 0700 when left for sikhism. [facility] 11-01-2024 Emergency department Triage note Pt presents to er from home via ems for altered mental status. Pt was found unresponsive by and was brought via ems. Pt presented to ems alert to verbal stimuli but confused to name, place, time and event. Pt presents to er alert to self only. Pt presents with normal speech and no stroke symptoms. [facility] 11-01-2024 Physician Emergency department Note Emergency Department Encounter [facility] ED Patient: Krystina Markham : 1955 Date of Evaluation: 11/01/2024 ED Supervising Physician: Charlie Mcintyre MD I independently examined and evaluated Krystina Markham. This will serve as my Supervisory note and shared attestation. I did perform a substantive portion of the visit including all aspects of the Medical Decision Making. I wore appropriate PPE for the entirety of this encounter. In brief, Krystina Markham is a 69 y.o. that presents to the emergency department after being found unresponsive by his this afternoon. Last seen normal around 7 AM. Patient is confused. He denies complaints. He denies headache, numbness, weakness, shortness of breath, chest pain, abdominal pain. Focused exam: Constitutional: No acute distress HEENT:Head: Atraumatic Eyes: Conjunctivae normal. PERRLA, EOMI, visual diggs full ENT: Mucous membranes moist. Normal oropharynx Neck: Normal ROM, supple CV: RRR, radial pulses equal RESP: X-ray wheezing bilaterally, good respiratory effort, no increased wob GI: Abdomen soft, non-tender, non-distended, +BS, no guarding or rebound tenderness MSK: Normal bulk and tone, no gross deformity EXTR: Warm and well perfused, no edema SKIN: No rash/bruising/erythema PSYCH: Appropriate affect, cooperative behavior NEURO: Alert and oriented x 2, face symmetric, no slurred speech, CN2-12 intact, motor and sensory intact and equal bilaterally. No upper or lower extremity drift. Cerebellar (finger-nose, [id number]) normal. Brief ED course/MDM: Patient nontoxic. Vitals normal on 4 L nasal cannula. NIHSS is 1 for mild confusion though this is likely due to encephalopathy rather than stroke as there are no lateralizing deficits. Workup is significant for wheezing on exam, mildly elevated pCO2 on VBG. Chest x-ray with no edema. No evidence of pneumonia. proBNP elevated. Mild hyponatremia. Minimal anemia. Wheezing improved after DuoNeb's. Also given methylprednisolone 40 mg IV for suspected COPD exacerbation. Admitted for continued workup and treatment. ED Course as of 11/01/242046 [place] Nov 01, [address] head wo IV contrast CT head ordered to evaluate for acute bleed, cranial fracture, space occupying lesions is negative for acute bleed, cranial fracture, space occupying lesions on my interpretation. No acute abnormalities on the radiologist's final read. [NAYA] ED Course User Index [NAYA] Charlie Mcintyre MD Diagnoses as of 11/01/242046 Acute hypercapnic respiratory failure (HCC) I personally saw the patient and made/approved the management plan and take responsibility for the patient management. All diagnostic, treatment, and disposition decisions were made by myself in conjunction with the resident. For all further details of the patient's emergency department visit, please see their documentation. (Comment: Please note this report has been produced using speech recognition software and may contain errors related to that system including errors in grammar, punctuation, and spelling, as well as words and phrases that may be inappropriate. If there are any questions or concerns please feel free to contact the dictating provider for clarification.) Charlie Mcintyre MD Acute Care [facility] Charlie Mcintyre MD 11/01/242008 [facility] [employer] Phone: 11-01-2024 Physician Emergency department Note EMERGENCY DEPARTMENT ENCOUNTER Pt Name: Krystina Markham Birthdate 1955 Date of evaluation: 11/01/2024 ED Provider: Karthik Wong MD CHIEF COMPLAINT Chief Complaint Patient presents with Altered Mental Status Pt presents to er from home via ems for altered mental status. Pt was found unresponsive by and was brought via ems. Pt presented to ems alert to verbal stimuli but confused to name, place, time and event. Pt presents to er alert to self only. Pt presents with normal speech and no stroke symptoms. HISTORY OF PRESENT ILLNESS (Location/Symptom, Timing/Onset, Context/Setting, Quality, Duration, Modifying Factors, Severity) Note limiting factors. I wore appropriate PPE for the entirety of this encounter. HPI this is a 69-year-old male with past medical history of alcohol abuse, atrial fibrillation on Eliquis, CHF and COPD who presents to the emergency department due to concerns for altered mental status from home. According to report the patient was unresponsive for his upon returning from sikhism this morning. By the time EMS arrived he was more arousable however still appeared confused. Patient himself denies any chest pain shortness of breath or other subjective symptoms. He endorses drinking alcohol the previous evening however denies any other illicit drug use. He is alert and oriented x 2 and has an NIH of 1 for confusion on initial arrival. Nursing Notes were reviewed. Limitations to history: None Outside historians: None REVIEW OF SYSTEMS Review of Systems Pertinent positives and negatives as per HPI. PAST MEDICAL HISTORY Past Medical History: Diagnosis Date Alcohol consumption heavy 09/10/2015 stopped 3w ago Asthma Atrial fibrillation (HCC) CHF (congestive heart failure) ([facility]) 01/31/2016 COPD (chronic obstructive pulmonary disease) ([facility]) 09/10/2015 Cor, pulmonale, acute (CMS/HCC) ([facility]) Deep venous thrombosis ([facility]) 02/2016 Depression Hx of blood clots Obesity 09/10/2015 DELORES (obstructive sleep apnea) Pulmonary embolus ([facility]) 6 16 Raynaud phenomenon 09/10/2015 Smoker 09/10/2015 SURGICAL HISTORY Past Surgical History: Procedure Laterality Date ABDOMINAL SURGERY BRONCHOSCOPY 02/25/2020 BRONCHOSCOPY (HISTORICAL) 02/25/2020 COLONOSCOPY 10/27/[address] CHEST ANGIOGRAM W AND/OR WO IV CONTRAST 07/12/2022 CT CHEST ANGIOGRAM W AND/OR WO IV CONTRAST 07/12/2022 [facility] CT IMAGING FINGER AMPUTATION Left HERNIA REPAIR NOSE SURGERY PACEMAKER (HISTORICAL) CURRENT MEDICATIONS Previous Medications ALBUTEROL (2.5 MG/3ML) 0.083% NEBULIZER SOLUTION Take 3 mL (2.5 mg) by nebulization as needed for wheezing or shortness of breath. APIXABAN (ELIQUIS) 5 MG TABLET Take 1 tablet (5 mg) by mouth 2 times daily. DAPAGLIFLOZIN (FARXIGA) 5 MG TABLET Take 1 tablet (5 mg) by mouth daily. [id number]-[id number]-[id number] (TRELEGY ELLIPTA) 100-62.5-25 MCG/ACT AEROSOL POWDER Inhale 1 puff daily. FOLIC ACID (FOLVITE) 1 MG TABLET Take 1 tablet (1 mg) by mouth daily. LOSARTAN (COZAAR) 25 MG TABLET Take 1 tablet (25 mg) by mouth daily. METOPROLOL SUCCINATE XL (TOPROL-XL) 100 MG 24 HR TABLET Take 1 tablet (100 mg) by mouth 2 times daily. Do not crush or chew. MONTELUKAST (SINGULAIR) 10 MG TABLET Take 1 tablet (10 mg) by mouth Nightly. ROSUVASTATIN (CRESTOR) 40 MG TABLET Take 1 tablet (40 mg) by mouth daily. SERTRALINE (ZOLOFT) 100 MG TABLET Take 1 tablet (100 mg) by mouth daily. SPIRONOLACTONE (ALDACTONE) 25 MG TABLET Take 1 tablet (25 mg) by mouth daily. TORSEMIDE (DEMADEX) 20 MG TABLET Take 2 tablets (40 mg) by mouth 2 times daily. TORSEMIDE (DEMADEX) 20 MG TABLET Take 2.5 tablets (50 mg) by mouth 2 times daily for 7 days. ALLERGIES Patient has no known allergies. FAMILY HISTORY Family History Problem Relation Name Age of Onset Asthma Father Congenital Anomaly Father Cancer Father Asthma Sister Heart disease Mother Heart disease Brother Pacemaker Mother Congenital Anomaly Sister Cancer Mother Diabetes Mother SOCIAL HISTORY Social History Socioeconomic History Marital status: Tobacco Use Smoking status: Former Current packs/day: 0.25 Average packs/day: 0.3 packs/day for 52.4 years (13.1 ttl pk-yrs) Types: Cigarettes Start date: 1972 Smokeless tobacco: Never Tobacco comments: 8 cig daily Substance and Sexual Activity Alcohol use: Not Currently Alcohol/week: 7.0 standard drinks of alcohol Types: 7 Cans of beer per week Comment: once beer daily Drug use: Never Social Drivers of Health Financial Resource Strain: Low Risk (09/11/2024) Overall Financial Resource Strain (CARDIA) Difficulty of Paying Living Expenses: Not very hard Food Insecurity: No Food Insecurity (09/11/2024) Hunger Vital Sign Worried About Running Out of Food in the Last Year: Never true Ran Out of Food in the Last Year: Never true Transportation Needs: No Transportation Needs (09/11/2024) PRAPARE - Transportation Lack of Transportation (Medical): No Lack of Transportation (Non-Medical): No Physical Activity: Inactive (09/11/2024) Exercise Vital Sign Days of Exercise per Week: 0 days Minutes of Exercise per Session: 0 min Stress: No Stress Concern Present (09/11/2024) Citizen Of [place] of Occupational Health - Occupational Stress Questionnaire Feeling of Stress : Not at all Social Connections: Socially Isolated (09/11/2024) Social Connection and Isolation Panel [NHANES] Frequency of Communication with Friends and Family: Never Frequency of Social Gatherings with Friends and Family: Never Attends Zoroastrian Services: Never Active Member of Clubs or Organizations: No Attends Club or Organization Meetings: Never Marital Status: Intimate Partner Violence: Not At Risk (09/11/2024) Humiliation, Afraid, Rape, and Kick questionnaire Fear of Current or Ex-Partner: No Emotionally Abused: No Physically Abused: No Sexually Abused: No Housing Stability: Low Risk (09/11/2024) Housing Stability Vital Sign Unable to Pay for Housing in the Last Year: No Number of Times Moved in the Last Year: 0 Homeless in the Last Year: No SCREENINGS Earl Coma Scale Best Eye Response: Spontaneous Best Verbal Response: Confused Best Motor Response: Follows commands [place] Coma Scale Score: 14 NIH Stroke Scale 1A. Level of Consciousness: Alert, Keenly Responsive 1B. Ask Month and Age: 1 Question Right 1C. Blink Eyes & Squeeze Hands: Performs Both Tasks 2. Best Gaze: Normal 3. Visual: No Visual Loss 4. Facial Palsy: Normal Symmetrical Movements 5A. Motor - Left Arm: No Drift 5B. Motor - Right Arm: No Drift 6A. Motor - Left Leg: No Drift 6B. Motor - Right Leg: No Drift 7. Limb Ataxia: Absent 8. Sensory Loss: Normal 9. Best Language: No Aphasia 10. Dysarthria: Normal 11. Extinction and Inattention: No Abnormality NIH Stroke Scale: 1 PHYSICAL EXAM ED Triage Vitals [11/01/24 1357] Temp Heart Rate Resp BP 36.7 C (98.1 F) 75 18 113/83 SpO2 Temp src Heart Rate Source Patient Position (!) 82 % -- -- Sitting BP Location FiO2 (%) Left arm -- PE: GENERAL APPEARANCE: Awake and alert. Cooperative. No acute distress. HEAD: Normocephalic. Atraumatic. EYES: EOM's grossly intact. Sclera anicteric. ENT: Mucous membranes are moist. Tolerates saliva. No trismus. NECK: Supple. No meningismus. Trachea midline. HEART: RRR. Radial pulses 2+. LUNGS: Respirations unlabored. CTAB ABDOMEN: Soft. Non-tender. No guarding or rebound. BACK: Atraumatic. No midline tenderness, step offs or deformities. No CVA tenderness. EXTREMITIES: No acute deformities. Full ROM in all 4 extremities. No numbness or paresthesias. Pulses intact. Capillary refill <2 sec. SKIN: Warm and dry. NEUROLOGICAL: No gross facial drooping. Moves all 4 extremities spontaneously. PSYCHIATRIC: Normal mood. DIAGNOSTIC RESULTS Procedures/EKG: EKG read per attending as applicable RADIOLOGY (Per Emergency Physician): Interpretation per the Radiologist below, if available at the time of this note: XR chest 1 view Final Result Vascular congestion without overt edema. No focal consolidation. Report Dictated on Electronically Signed By: Alek Erazo MD Electronically Signed Date/Time: 11/01/2024 3:[address] head wo IV contrast Final Result No acute intracranial hemorrhage or mass effect. Report Dictated on Electronically Signed By: Alek Erazo MD Electronically Signed Date/Time: 11/01/2024 3:19 PM EST ED BEDSIDE ULTRASOUND: Performed by ED Physician - none LABS: Labs Reviewed CBC WITH AUTO DIFFERENTIAL - Abnormal Result Value Auto WBC 7.6 RBC 4.21 (*) Hemoglobin 12.6 (*) Hematocrit 36.7 (*) MCV 87.2 MCH 29.9 MCHC 34.3 RDW 13.2 Platelets 229 MPV 9.3 nRBC 0.0 Neutrophils Relative 81.1 Lymphocytes Relative 10.0 (*) Monocytes Relative 6.5 Eosinophils Relative 1.3 Basophils Relative 0.7 Immature Grans % 0.4 Neutrophils Absolute 6.1 Lymphocytes Absolute 0.8 (*) Monocytes Absolute 0.5 Eosinophils Absolute 0.1 Basophils Absolute 0.1 Immature Grans Absolute 0.0 BASIC METABOLIC PANEL - Abnormal SODIUM 127 (*) POTASSIUM 3.7 CHLORIDE 88 (*) CARBON DIOXIDE 29 UREA NITROGEN 11 CREATININE 0.78 GLUCOSE 151 (*) CALCIUM 9.0 ANION GAP 10 eGFR >90.0 HEPATIC FUNCTION PANEL - Abnormal BILIRUBIN, TOTAL 1.1 BILIRUBIN, DIRECT 0.5 (*) ALKALINE PHOSPHATASE 90 AST (SGOT) 30 ALT 10 ALBUMIN 3.6 TOTAL PROTEIN 7.3 BLOOD GAS, VENOUS - Abnormal pH, Venous 7.341 pCO2, Venous 58.2 (*) pO2, Venous 30.4 HCO3, Venous 30.8 (*) O2 Sat, Venous 53.1 Base Excess, Venous 3.5 (*) Hgb, blood gas 13.7 TCO2, Venous 32.6 (*) Source Of Oxygen Nasal Cannula (LPM) Amount Of Oxygen Narrative: Assessment of oxygenation is best done with an arterial blood gas determination. Reference ranges for pO2, bicarbonate, and base excess are for mixed venous blood. Specimens drawn from a peripheral vein will often have higher values. NT PRO BNP - Abnormal NT PRO BNP 4,147 (*) SARS-COV-2, FLU A/B, AND RSV COMBO - Normal SARS-CoV-2 Not Detected Respiratory Syncytial Virus Not Detected Influenza A Not Detected Influenza B Not Detected Narrative: Methodology: real-time, RT-PCR The SARS-CoV-2, Flu A/B, and RSV Combo assay is intended for in vitro diagnostic use under the FDA Emergency Use Authorization (EUA). This test has not been FDA cleared or approved. In compliance with this authorization, please visit www.fda.gov/media/748306/download or www.fda.gov/media/020784/download to access the applicable information sheets. AMMONIA - Normal AMMONIA 31 HIGH SENSITIVITY TROPONIN, SERIAL BASELINE - Normal Troponin HS Serial Baseline 16 HIGH SENSITIVITY TROPONIN, SERIAL, SECOND TEST - Normal 2h Troponin HS (Serial 2nd Troponin) 20 MAGNESIUM - Normal MAGNESIUM 1.7 Narrative: Higher values can be expected in females during menses. COMPLETE URINALYSIS WITH REFLEX TO CULTURE Narrative: The following orders were created for panel order Complete Urinalysis with reflex to Culture. Procedure Abnormality Status --------- ------ Complete Urinalysis[[id number]] Please view results for these tests on the individual orders. COMPLETE URINALYSIS HIGH SENSITIVITY TROPONIN, SERIAL, THIRD TEST ETHANOL All other labs were within normal range or not returned as of this dictation. EMERGENCY DEPARTMENT COURSE and DIFFERENTIAL DIAGNOSIS/MDM: Vitals: Vitals: 11/01/24 1406 11/01/24 1500 11/01/24 1505 11/01/24 1530 BP: 102/68 102/58 BP Location: Patient Position: Pulse: 80 65 65 Resp: 22 18 20 Temp: SpO2: 96% 94% 96% 93% Weight: Height: MDM: See HPI above. Patient is a 69-year-old male with past medical history as described above who presents to the emergency department complaining of altered mental status of uncertain cause. The patient has multiple medical comorbidities that could contribute to encephalopathy including poorly controlled COPD, CHF, electrolyte derangements and alcohol use. The patient CT of his head was negative for any acute process. He has an NIH on my evaluation was 1 for confusion secondary to inability to know his age. He otherwise showed no evidence of focal neurologic deficits. His ammonia was within normal limits. He did have a mild hyponatremia of 127 which is mildly decreased and not at his chronic baseline level. Based on this evaluation with uncertain cause of his altered mental status and the fact that it was persisting we felt the patient should be admitted to the hospital for further workup and management. This was discussed with the admitting hospitalist team who agreed to evaluate the patient for admission. Patient was separately admitted to the family medicine service in stable condition. Please see separate provider notes for the remainder the patient's hospital course and ultimate disposition. ED Course as of 11/01/242154 Sun Nov 01, [address] head wo IV contrast CT head ordered to evaluate for acute bleed, cranial fracture, space occupying lesions is negative for acute bleed, cranial fracture, space occupying lesions on my interpretation. No acute abnormalities on the radiologist's final read. [NAYA] ED Course User Index [NAYA] Charlie Mcintyre MD Diagnoses as of 11/01/242154 Acute hypercapnic respiratory failure (HCC) Medications ipratropium-albuterol (Duo-Neb) 0.5-2.5 mg/3 mL nebulizer solution 3 mL (3 mL Nebulization Given 11/01/24 1505) ipratropium-albuterol (Duo-Neb) 0.5-2.5 mg/3 mL nebulizer solution 3 mL (3 mL Nebulization Given 11/01/24 1513) methylPREDNISolone sod suc (PF) (SOLU-Medrol) 40 MG injection 40 mg (40 mg IntraVENous Given 11/01/24 1517) PROCEDURES: Unless otherwise noted below, none Procedures FINAL IMPRESSION No diagnosis found. DISPOSITION PATIENT REFERRED TO: No follow-up provider specified. DISCHARGE MEDICATIONS: New Prescriptions No medications on file (Comment: Please note this report has been produced using speech recognition software and may contain errors related to that system including errors in grammar, punctuation, and spelling, as well as words and phrases that may be inappropriate. If there are any questions or concerns please feel free to contact the dictating provider for clarification.) Karhtik Wong MD (electronically signed) Emergency Medicine Provider Karthik Wong MD Resident 11/01/242157 Cosigned by Charlie Mcintyre MD at 11/02/2024 1:00 AM EST [employer] Phone: 10-14-2024 Evaluation + Plan note Associated Problem(s): Personal history of smoking States he has only had a few cigarettes in the last 2 months. He was congratulated on this and encouraged to maintain cessation. [facility] 10-14-2024 Evaluation + Plan note Associated Problem(s): Presence of cardiac resynchronization therapy defibrillator (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) Device check 09/16/2024 with 13% BiV pacing, which is low. He was not taking his medications at that time. He since has resumed Toprol 100 mg p.o. twice daily, so I suspect his percentage of BiV pacing will improve. If not, we will have to make additional changes to his medical therapy. -Continue with device checks and EP follow-up [facility] 10-14-2024 Miscellaneous Notes Associated Problem(s): Personal history of smoking States he has only had a few cigarettes in the last 2 months. He was congratulated on this and encouraged to maintain cessation. Associated Problem(s): Presence of cardiac resynchronization therapy defibrillator (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) Device check 09/16/2024 with 13% BiV pacing, which is low. He was not taking his medications at that time. He since has resumed Toprol 100 mg p.o. twice daily, so I suspect his percentage of BiV pacing will improve. If not, we will have to make additional changes to his medical therapy. -Continue with device checks and EP follow-up Associated Problem(s): On continuous oral anticoagulation No abnormal bleeding on Eliquis. CBC and BMP September 2024 stable. -Continue Eliquis 5 mg p.o. twice daily -CBC and BMP every 6 months, due March 2025 Associated Problem(s): Permanent atrial fibrillation (HCC) Nonvalvular. Remains in rate controlled A-fib today. -Continue Toprol 100 mg p.o. twice daily -Continue Eliquis 5 mg p.o. twice daily Associated Problem(s): HFrEF (heart failure with reduced ejection fraction) (HCC) HFrEF, biventricular 2/2 NICM, stage C, class II. EF 21% per echocardiogram November 2023. Decompensations usually related to noncompliance with medical therapy. No current heart failure symptoms and appears euvolemic on physical exam. He has been compliant with medications. -Continue Toprol 100 mg p.o. twice daily -Continue losartan 25 mg p.o. daily -Continue spironolactone 25 mg p.o. daily -Continue Farxiga 5 mg p.o. daily -Continue torsemide 50 mg p.o. twice daily -Follow-up BMP to ensure stability of renal function and electrolytes -Heart failure self-care reviewed documented in this encounter [facility] 10-14-2024 Evaluation + Plan note Associated Problem(s): On continuous oral anticoagulation No abnormal bleeding on Eliquis. CBC and BMP September 2024 stable. -Continue Eliquis 5 mg p.o. twice daily -CBC and BMP every 6 months, due March 2025 [facility] 10-14-2024 Evaluation + Plan note Associated Problem(s): Permanent atrial fibrillation (HCC) Nonvalvular. Remains in rate controlled A-fib today. -Continue Toprol 100 mg p.o. twice daily -Continue Eliquis 5 mg p.o. twice daily [facility] 10-14-2024 Evaluation + Plan note Associated Problem(s): HFrEF (heart failure with reduced ejection fraction) (HCC) HFrEF, biventricular 2/2 NICM, stage C, class II. EF 21% per echocardiogram November 2023. Decompensations usually related to noncompliance with medical therapy. No current heart failure symptoms and appears euvolemic on physical exam. He has been compliant with medications. -Continue Toprol 100 mg p.o. twice daily -Continue losartan 25 mg p.o. daily -Continue spironolactone 25 mg p.o. daily -Continue Farxiga 5 mg p.o. daily -Continue torsemide 50 mg p.o. twice daily -Follow-up BMP to ensure stability of renal function and electrolytes -Heart failure self-care reviewed [facility] 10-14-2024 History of Present illness Narrative Images from the original note were not included. [facility] - [address] [address] Dept: [phone] Dept Visit type: Established : 1955 Reason for Visit: Hospital Follow-up and Congestive Heart Failure Assessment and Plan 1. Chronic HFrEF (heart failure with reduced ejection fraction) (HCC) - Basic metabolic panel 2. HFrEF (heart failure with reduced ejection fraction) ([facility]) Assessment & Plan: HFrEF, biventricular 2/2 NICM, stage C, class II. EF 21% per echocardiogram November 2023. Decompensations usually related to noncompliance with medical therapy. No current heart failure symptoms and appears euvolemic on physical exam. He has been compliant with medications. -Continue Toprol 100 mg p.o. twice daily -Continue losartan 25 mg p.o. daily -Continue spironolactone 25 mg p.o. daily -Continue Farxiga 5 mg p.o. daily -Continue torsemide 50 mg p.o. twice daily -Follow-up BMP to ensure stability of renal function and electrolytes -Heart failure self-care reviewed 3. Permanent atrial fibrillation (HCC) Assessment & Plan: Nonvalvular. Remains in rate controlled A-fib today. -Continue Toprol 100 mg p.o. twice daily -Continue Eliquis 5 mg p.o. twice daily 4. On continuous oral anticoagulation Assessment & Plan: No abnormal bleeding on Eliquis. CBC and BMP September 2024 stable. -Continue Eliquis 5 mg p.o. twice daily -CBC and BMP every 6 months, due March 2025 5. Presence of cardiac resynchronization therapy defibrillator (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) Assessment & Plan: Device check 09/16/2024 with 13% BiV pacing, which is low. He was not taking his medications at that time. He since has resumed Toprol 100 mg p.o. twice daily, so I suspect his percentage of BiV pacing will improve. If not, we will have to make additional changes to his medical therapy. -Continue with device checks and EP follow-up 6. Personal history of smoking Assessment & Plan: States he has only had a few cigarettes in the last 2 months. He was congratulated on this and encouraged to maintain cessation. Follow up in about 2 months (around 12/12/2024). Subjective Hx HFrEF 2/2 NICM s/p 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, permanent nonvalvular Afib, COPD on home O2, ETOH use, tobacco use He is known to Dr. Almaraz and last seen 09/19/2022. Since his last office visit he has had multiple hospitalizations for COPD exacerbation, pneumonia and heart failure. He is noncompliant with medications and follow-up at times. Last echocardiogram done November 2023 with ejection fraction of 21% with global hypokinesis, 3+ tricuspid regurgitation with RVSP 47 mmHg, severe left atrial dilation and 1-2+ mitral regurgitation. His most recent hospitalization was September 2024 after he stopped taking his heart failure medications and was admitted for acute decompensated heart failure. He was noted to have hyponatremia. Cardiology was not consulted during that admission. He was diuresed and placed back on GDMT. He presents today for continued follow-up. Today, he tells me he feels well. He has chronic dyspnea on exertion which remains at baseline. He denies chest pain, PND, orthopnea, edema, palpitations or syncope. His ex- is with him at his office visit today and states he has been taking his medications as prescribed. He states he has not had any alcohol in 2 months and has had minimal cigarettes in the last 2 months. Krystinafilippo Markham Review of Systems Constitutional: Negative for chills, diaphoresis, fatigue and fever. HENT: Negative for nosebleeds and trouble swallowing. Eyes: Negative for visual disturbance. Respiratory: Positive for shortness of breath (NARAYANAN, chronic, stable, wears 2L home O2). Negative for apnea, cough, chest tightness and wheezing. Denies PND, orthopnea Cardiovascular: Negative for chest pain, palpitations and leg swelling. Gastrointestinal: Negative for abdominal distention, abdominal pain, blood in stool, diarrhea, nausea and vomiting. Genitourinary: Negative for hematuria. Musculoskeletal: Negative for gait problem and myalgias. Skin: Negative for color change and rash. Neurological: Negative for dizziness, syncope, weakness and light-headedness. Hematological: Does not bruise/bleed easily. Psychiatric/Behavioral: Negative for dysphoric mood. No Known Allergies Outpatient Medications Prior to Visit Medication Sig Dispense Refill albuterol (2.5 MG/3ML) 0.083% nebulizer solution Take 3 mL (2.5 mg) by nebulization as needed for wheezing or shortness of breath. 75 mL 3 apixaban (Eliquis) 5 MG tablet Take 1 tablet (5 mg) by mouth 2 times daily. 60 tablet 11 dapagliflozin (Farxiga) 5 MG tablet Take 1 tablet (5 mg) by mouth daily. 30 tablet 11 folic acid (Folvite) 1 MG tablet Take 1 tablet (1 mg) by mouth daily. 30 tablet 1 losartan (Cozaar) 25 MG tablet Take 1 tablet (25 mg) by mouth daily. 15 tablet 3 metoprolol succinate XL (Toprol-XL) 100 MG 24 hr tablet Take 1 tablet (100 mg) by mouth 2 times daily. Do not crush or chew. 180 tablet 0 montelukast (Singulair) 10 MG tablet Take 1 tablet (10 mg) by mouth Nightly. 90 tablet 0 rosuvastatin (Crestor) 40 MG tablet Take 1 tablet (40 mg) by mouth daily. 30 tablet 3 sertraline (Zoloft) 100 MG tablet Take 1 tablet (100 mg) by mouth daily. 30 tablet 3 spironolactone (Aldactone) 25 MG tablet Take 1 tablet (25 mg) by mouth daily. 30 tablet 5 torsemide (Demadex) 20 MG tablet Take 2.5 tablets (50 mg) by mouth 2 times daily for 7 days. 35 tablet 0 Unkfhvptuax-Eddhnvfdv-Hhmcrb (Trelegy Ellipta) 100-62.5-25 MCG/ACT aerosol powder Inhale 1 puff daily. (Patient not taking: Reported on 10/14/2024) 2 each 0 torsemide (Demadex) 20 MG tablet Take 2 tablets (40 mg) by mouth 2 times daily. (Patient not taking: Reported on 10/14/2024) 120 tablet 2 Eliquis 5 MG tablet Take 1 tablet (5 mg) by mouth 2 times daily. 60 tablet 2 Ihgojjzrdyj-Mcyiazsyr-Vuqabk (Trelegy Ellipta) 100-62.5-25 MCG/ACT aerosol powder Inhale 1 puff daily. (Patient not taking: Reported on 09/28/2024) 2 each 0 No facility-administered medications prior to visit. Past Medical History: Diagnosis Date Alcohol consumption heavy 09/10/2015 stopped 3w ago Asthma Atrial fibrillation ([facility]) CHF (congestive heart failure) ([facility]) 01/31/2016 COPD (chronic obstructive pulmonary disease) ([facility]) 09/10/2015 Cor, pulmonale, acute (CMS/HCC) ([facility]) Deep venous thrombosis ([facility]) 02/2016 Depression Hx of blood clots Obesity 09/10/2015 DELORES (obstructive sleep apnea) Pulmonary embolus ([facility]) 6 16 Raynaud phenomenon 09/10/2015 Smoker 09/10/2015 Social History Tobacco Use Smoking status: Former Current packs/day: 0.25 Average packs/day: 0.3 packs/day for 52.4 years (13.1 ttl pk-yrs) Types: Cigarettes Start date: 1972 Smokeless tobacco: Never Tobacco comments: 8 cig daily Substance Use Topics Alcohol use: Not Currently Alcohol/week: 7.0 standard drinks of alcohol Types: 7 Cans of beer per week Comment: once beer daily Past Surgical History: Procedure Laterality Date ABDOMINAL SURGERY BRONCHOSCOPY 02/25/2020 BRONCHOSCOPY (HISTORICAL) 02/25/2020 COLONOSCOPY 10/27/[address] CHEST ANGIOGRAM W AND/OR WO IV CONTRAST 07/12/2022 CT CHEST ANGIOGRAM W AND/OR WO IV CONTRAST 07/12/[address] IMAGING FINGER AMPUTATION Left HERNIA REPAIR NOSE SURGERY PACEMAKER (HISTORICAL) Family History Problem Relation Name Age of Onset Asthma Father Congenital Anomaly Father Cancer Father Asthma Sister Heart disease Mother Heart disease Brother Pacemaker Mother Congenital Anomaly Sister Cancer Mother Diabetes Mother Objective Vitals: 10/14/24 1328 BP: 100/70 BP Location: Left arm Patient Position: Sitting BP Cuff Size: Large adult Pulse: 62 SpO2: 91% Weight: 188 lb 14.4 oz (85.7 kg) Height: 5' 8" (1.727 m) Physical Exam Vitals reviewed. Constitutional: Appearance: Normal appearance. HENT: Head: Normocephalic and atraumatic. Mouth/Throat: Mouth: Mucous membranes are moist. Pharynx: Oropharynx is clear. Neck: Vascular: No carotid bruit, hepatojugular reflux or JVD (difficult to assess). Cardiovascular: Rate and Rhythm: Normal rate. Rhythm irregularly irregular. Heart sounds: Murmur heard. Systolic murmur is present with a grade of 1/6. Comments: Chronic statis changes BLE Pulmonary: Effort: Pulmonary effort is normal. Breath sounds: Wheezing present. Chest: Comments: PPM prominent under skin Abdominal: General: Abdomen is protuberant. Bowel sounds are normal. Palpations: Abdomen is soft. Musculoskeletal: Right lower leg: No edema. Left lower leg: No edema. Skin: General: Skin is warm and dry. Neurological: Mental Status: He is alert and oriented to person, place, and time. Mental status is at baseline. Psychiatric: Attention and Perception: Attention normal. Mood and Affect: Mood normal. Speech: Speech normal. Cognition and Memory: Cognition normal. Data Reviewed and Summarized EF BP Date Value Ref Range Status 11/12/2023 21 (A) 55 - 100 % Final Review of tests/labs done/ordered within my specialty: Cardiac device check - Remote ICD 09/17/2024 Narrative Add on (B) 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 remote. MAP is SP. Missed remote 09-16-24 due to hospitalization. Battery= 2.93 V and est. longevity= 3.4 - 4 yrs, Charge Time= 8.9 sec., last cap reform on: 06-18-24. RV Lead = 11.7 mV, 350 Ohms. LV Lead = 740 Ohms, BiVP = 13 %. HV = 41 Ohms. VVIR 60 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. Interrogation of device shows permanent Afib. Taking eliquis. Good rate control per histograms. Low BV Pacing. Dr. Foote aware. Next (B) remote on 12-23-24. Reggie Rizvi RN Cardiac device check - Remote ICD 06/01/2024 Narrative (B) Routine 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 REMOTE. Normal device function. Battery 2.93V, Est Longevity 3yr 11 months, Charge time 8.6 sec. RA lead 430 ohms. MODE VVIR 60. RV Lead 11.7 mV, 390 Ohms, 0.875V @ 0.5ms, HV 63Ohms, TELETYPESETTER MONITOR 22% LV Lead 660 ohms. EPISODES: AT/AF 100%. Missed recent Clinic check. Next remote on: 09.16.2024. Dr. Foote, SP. Rozina Simon RN Cardiac device check - Remote ICD 02/27/2024 Narrative Add on 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 (B) Remote. MAP is SP. Missed remote 01-15-24. Battery= 2.95 V and est. longevity= 3.8 - 4.4 yrs, Charge Time= 8.6 sec. RV Lead = 11.7 mV, 330 Ohms, 0.875 V / 0.5 ms (auto capture). LV Lead = 730 Ohms, BiVP = 13 %. HV = 53 Ohms. VVIR 60 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 device. Interrogation of device shows no HVR events. History of permanent afib and taking eliquis. Per paceart note, Dr. Foote aware of low BV Pacing. Has upcoming clinic and appt with Dr. Foote 05-13-24 at the [facility]. Called patient and notified of remote results. Feeling well. Reminded of upcoming appts in May. Reggie Rizvi RN 11/11/23 TRANSTHORACIC ECHOCARDIOGRAM (TTE) COMPLETE (CONTRAST/BUBBLE/3D PRN) 11/12/2023 4:32 PM (Final) Interpretation Summary Left Ventricle: Left ventricle is moderately dilated. LVIDd is 6.4 cm. Mildly increased wall thickness. Severely reduced left ventricular systolic function. EF by 2D Simpsons Biplane is 21%. Global hypokinesis present. Right Ventricle: Right ventricle is severely dilated. Pacemaker lead present in the right ventricle. Tricuspid Valve: Moderately severe (3+) regurgitation. RVSP may be underestimated in the setting of severe TR. RVSP is 47 mmHg. Left Atrium: Left atrium is severely dilated. LA Vol Index A/L is 73 mL/m2. Right Atrium: Right atrium is severely dilated. Mitral Valve: Annular dilation. Mild to moderate (1-2+) regurgitation. IVC is severely dilated. IVC diameter is dilated and decreases less than 50% during inspiration; therefore the estimated right atrial pressure is elevated (~15 mmHg). Signed by: Tonya Rosales on 11/12/2023 4:32 PM Review of tests/labs done/ordered outside my specialty: Latest Reference Range & Units 09/16/24 04:13 SODIUM 136 - 145 mmol/L 135 (L) POTASSIUM 3.5 - 5.1 mmol/L 4.2 CHLORIDE 98 - 107 mmol/L 100 Carbon Dioxide (CO2) 23 - 31 mmol/L 26 ANION GAP 3 - 13 mmol/L 9 Urea Nitrogen (BUN) 9 - 23 mg/dL 24 (H) Creatinine 0.72 - 1.25 mg/dL 0.89 eGFR >60.0 mL/min/1.73m*2 >90.0 GLUCOSE 82 - 115 mg/dL 144 (H) CALCIUM 8.8 - 10.0 mg/dL 8.4 (L) ALKALINE PHOSPHATASE - [facility] 40 - 150 U/L 181 (H) ALBUMIN - [facility] 3.4 - 4.8 g/dL 2.7 (L) TOTAL PROTEIN 6.4 - 8.3 g/dL 6.8 AST - [facility] <34 U/L 63 (H) ALT - [facility] <40 U/L 33 BILIRUBIN, TOTAL - [facility] <1.2 mg/dL 0.5 NT PRO BNP <125 pg/mL 4,175 (H) Auto WBC 3.6 - 10.7 10*3/uL 6.2 RBC 4.40 - 5.90 10*6/uL 3.90 (L) HEMOGLOBIN 13.0 - 18.0 g/dL 12.1 (L) HEMATOCRIT 40.0 - 52.0 % 36.2 (L) MCV 77.0 - 99.0 fL 92.8 MCH 26.0 - 34.0 pg 31.0 MCHC 30.5 - 36.0 % 33.4 RDW 11.5 - 15.0 % 14.9 Platelets 140 - 440 10*3/uL 220 Mean Platelet Volume (MPV) 9.0 - 12.7 fL 10.6 Neutrophils Relative 38.0 - 82.0 % 77.0 Lymphocytes Relative 15.0 - 45.0 % 10.8 (L) Monocytes Relative 5.0 - 13.0 % 10.7 Eosinophils Relative 0.0 - 6.0 % 0.6 Basophils Relative 0.0 - 2.0 % 0.3 Absolute Neutrophils 1.8 - 7.5 10*3/uL 4.8 ABSOLUTE LYMPHOCYTES - [facility] 1.0 - 4.3 10*3/uL 0.7 (L) Monocytes Absolute 0.0 - 0.9 10*3/uL 0.7 Eosinophils Absolute 0.0 - 0.5 10*3/uL 0.0 Basophils Absolute 0.0 - 0.2 10*3/uL 0.0 nRBC 0.0 - 2.0 /100 WBCs 0.0 Immature Grans Absolute <0.1 10*3/uL 0.0 Immature Grans % 0.0 - 2.0 % 0.6 (L): Data is abnormally low (H): Data is abnormally high Independent interpretation of tests: I, PRIYA Wilkinson CNP, furnish ongoing care related to Krystina Markham single, serious and complex condition(s) HF. I assume responsibility for the patient's ongoing medical care of this condition. PRIYA Wilkinson CNP documented in this encounter [facility] 10-02-2024 Telephone encounter Note Name of caller: Melodie Tavarez Contact phone number: [phone] Relationship to Patient: spouse/SO Provider: Dr. Subramanian Practice: [facility] Chief Complaint/Reason for Call: At request labs are being faxed to [facility] at [address] [place] [address] in [place] Best time of day caller can be reached: any Patient advised that office/PCP has 24-48 business hours to return their call: N/A [facility] 10-02-2024 Miscellaneous Notes Name of caller: Melodie Tavarez Contact phone number: [phone] Relationship to Patient: spouse/SO Provider: Dr. Subramanian Practice: [facility] Chief Complaint/Reason for Call: At request labs are being faxed to [facility] at [address] [facility] Best time of day caller can be reached: any Patient advised that office/PCP has 24-48 business hours to return their call: N/A documented in this encounter [facility] 09-28-2024 History of Present illness Narrative Images from the original note were not included. [place] [address] [facility] [id number] Post-Discharge Transitional Care Follow Up Date of Hospital Admission: 09/10/24 Date of Hospital Discharge: 09/16/24 Readmission Risk Score: Predictive Model Details 95% Factor Value Risk of Hospital Admission or ED Visit Model 33% Number of ED Visits 4 17% Number of Hospitalizations 4 8% Is in Relationship No 6% Has Atrial Fibrillation Yes 5% Has COPD Yes 5% Has Anemia Yes 5% Has Medicare Yes 5% Has CVD Yes 4% Has Depression Yes 4% Has Diabetes Yes 4% Has Asthma Yes 3% Has CHF Yes 1% Has PCP Yes Patient was contacted by care management services within two days of their discharge. This encounter and supporting documentation was reviewed. ASSESSMENT/PLAN 1. Dyspnea due to congestive heart failure (HCC)-Active Comments: -Start taking torsemide 50 mg BID for 1 week and follow up with PCP in 1 week to assess fluid status -Daily weights -[facility] Orders: - DME Order for Nebulizer machine 2. Chronic bronchitis, unspecified chronic bronchitis type (HCC) - albuterol (2.5 MG/3ML) 0.083% nebulizer solution; Take 3 mL (2.5 mg) by nebulization as needed for wheezing or shortness of breath., Starting 09/28/2024, Normal Medical Decision Making moderate No follow-ups on file. Olya Nunes MD 09/30/24 3:20 PM SUBJECTIVE The patient is a 69 year-old male who came to the clinic for transition of are after hospital admission from 09/10/2024-09/16/2024. He was admitted for exacerbation of CHF. E has PMHx of CHF, HFrEF with Ef of 21%, COPD, Inpatient course: Discharge summary reviewed Interval History He was started on Torsemide 40 mg BID and Farxiga 5 mg once daily. BMP was ordered to be done outpatient due to change in diuretics. He reports that the shortness of breath has remained the same but his nurse noticed wheezing on the left lobes and lower right lobes. His x- who was present also states that he has gained 10 lbs in the last 10 days. He now uses 2 L oxygen at home. He can ambulate using a rolling walker. I have performed a medication reconciliation during this visit and have reconciled the medications patient is taking as of now against medications ordered at time of hospital discharge. Current Outpatient Medications: apixaban (Eliquis) 5 MG tablet, Take 1 tablet (5 mg) by mouth 2 times daily., Disp: 60 tablet, Rfl: 11 dapagliflozin (Farxiga) 5 MG tablet, Take 1 tablet (5 mg) by mouth daily., Disp: 30 tablet, Rfl: 11 Eliquis 5 MG tablet, Take 1 tablet (5 mg) by mouth 2 times daily., Disp: 60 tablet, Rfl: 2 folic acid (Folvite) 1 MG tablet, Take 1 tablet (1 mg) by mouth daily., Disp: 30 tablet, Rfl: 1 losartan (Cozaar) 25 MG tablet, Take 1 tablet (25 mg) by mouth daily., Disp: 15 tablet, Rfl: 3 metoprolol succinate XL (Toprol-XL) 100 MG 24 hr tablet, Take 1 tablet (100 mg) by mouth 2 times daily. Do not crush or chew., Disp: 180 tablet, Rfl: 0 montelukast (Singulair) 10 MG tablet, Take 1 tablet (10 mg) by mouth Nightly., Disp: 90 tablet, Rfl: 0 rosuvastatin (Crestor) 40 MG tablet, Take 1 tablet (40 mg) by mouth daily., Disp: 30 tablet, Rfl: 3 sertraline (Zoloft) 100 MG tablet, Take 1 tablet (100 mg) by mouth daily., Disp: 30 tablet, Rfl: 3 spironolactone (Aldactone) 25 MG tablet, Take 1 tablet (25 mg) by mouth daily., Disp: 30 tablet, Rfl: 5 torsemide (Demadex) 20 MG tablet, Take 2 tablets (40 mg) by mouth 2 times daily., Disp: 120 tablet, Rfl: 2 albuterol (2.5 MG/3ML) 0.083% nebulizer solution, Take 3 mL (2.5 mg) by nebulization as needed for wheezing or shortness of breath., Disp: 75 mL, Rfl: 3 Lvorzptmlse-Sgaobhxqg-Uezmco (Trelegy Ellipta) 100-62.5-25 MCG/ACT aerosol powder , Inhale 1 puff daily. (Patient not taking: Reported on 09/28/2024), Disp: 2 each, Rfl: 0 Ktmthcuysmw-Dlsazornp-Rjgqet (Trelegy Ellipta) 100-62.5-25 MCG/ACT aerosol powder , Inhale 1 puff daily. (Patient not taking: Reported on 09/28/2024), Disp: 2 each, Rfl: 0 torsemide (Demadex) 20 MG tablet, Take 2.5 tablets (50 mg) by mouth 2 times daily for 7 days., Disp: 35 tablet, Rfl: 0 Review of Systems Respiratory: Positive for shortness of breath and wheezing. Cardiovascular: Positive for leg swelling. Negative for chest pain and palpitations. Gastrointestinal: Positive for abdominal distention. Negative for abdominal pain, constipation and diarrhea. OBJECTIVE BP 108/56 Pulse 63 Temp 36.7 C (98.1 F) (Temporal) Ht 5' 8" (1.727 m) Wt 188 lb 12.8 oz (85.6 kg) SpO2 91% Comment: 93 POX on room air _JW PROVIDER RELATIONS MANAGER BMI 28.71 kg/m Physical Exam HENT: Mouth/Throat: Mouth: Mucous membranes are moist. Cardiovascular: Rate and Rhythm: Normal rate and regular rhythm. Pulmonary: Breath sounds: Wheezing present. Comments: 2 L oxygen at home Wheezing on the right lungs and lower left lobes Abdominal: General: Bowel sounds are normal. There is distension. Tenderness: There is no abdominal tenderness. There is no guarding. Musculoskeletal: Right lower leg: Edema present. Left lower leg: Edema present. Neurological: Mental Status: He is alert. Olya Nunes Family medicine Pt asked if they have been to specialist,been in ER /hospitalized or had testing since last visit. No_ Dc'd from hospital Patient was able to ambulate safely to the examination room. pushed in w/c by visitor Provider was not notified of possible fall risk DIRECT SUPERVISION SERVICE TO BE BILLED USING TEACHING PHYSICIAN MODIFIER -GC I performed a history and physical examination of the patient and discussed his management with the resident. I reviewed the resident's note and agree with the documented findings and plan of care. documented in this encounter [facility] 09-28-2024 History of Present illness Narrative Images from the original note were not included. [address] [id number] Post-Discharge Transitional Care Follow Up Date of Hospital Admission: 09/10/24 Date of Hospital Discharge: 09/16/24 Readmission Risk Score: Predictive Model Details 95% Factor Value Risk of Hospital Admission or ED Visit Model 33% Number of ED Visits 4 17% Number of Hospitalizations 4 8% Is in Relationship No 6% Has Atrial Fibrillation Yes 5% Has COPD Yes 5% Has Anemia Yes 5% Has Medicare Yes 5% Has CVD Yes 4% Has Depression Yes 4% Has Diabetes Yes 4% Has Asthma Yes 3% Has CHF Yes 1% Has PCP Yes Patient was contacted by care management services within two days of their discharge. This encounter and supporting documentation was reviewed. ASSESSMENT/PLAN 1. Dyspnea due to congestive heart failure (HCC) Comments: -Continue torsemide 40 mg BID -Daily weights -BMP Orders: - DME Order for Nebulizer machine 2. Chronic bronchitis, unspecified chronic bronchitis type (HCC) - albuterol (2.5 MG/3ML) 0.083% nebulizer solution; Take 3 mL (2.5 mg) by nebulization as needed for wheezing or shortness of breath., Starting 09/28/2024, Normal Medical Decision Making moderate No follow-ups on file. Olya Nunes MD 09/29/24 3:20 PM SUBJECTIVE The patient is a 69 year-old male who came to the clinic for transition of are after hospital admission from 09/10/2024-09/16/2024. He was admitted for exacerbation of CHF. E has PMHx of CHF, HFrEF with Ef of 21%, COPD, Inpatient course: Discharge summary reviewed Interval History He was started on Torsemide 40 mg BID and Farxiga 5 mg once daily. BMP was ordered to be done outpatient due to change in diuretics. He reports that the shortness of breath has remained the same but his nurse noticed wheezing on the left lobes and lower right lobes. His x- who was present also states that he has gained 10 lbs in the last 10 days. He now uses 2 L oxygen at home. He can ambulate using a rolling walker. I have performed a medication reconciliation during this visit and have reconciled the medications patient is taking as of now against medications ordered at time of hospital discharge. Current Outpatient Medications: apixaban (Eliquis) 5 MG tablet, Take 1 tablet (5 mg) by mouth 2 times daily., Disp: 60 tablet, Rfl: 11 dapagliflozin (Farxiga) 5 MG tablet, Take 1 tablet (5 mg) by mouth daily., Disp: 30 tablet, Rfl: 11 Eliquis 5 MG tablet, Take 1 tablet (5 mg) by mouth 2 times daily., Disp: 60 tablet, Rfl: 2 folic acid (Folvite) 1 MG tablet, Take 1 tablet (1 mg) by mouth daily., Disp: 30 tablet, Rfl: 1 losartan (Cozaar) 25 MG tablet, Take 1 tablet (25 mg) by mouth daily., Disp: 15 tablet, Rfl: 3 metoprolol succinate XL (Toprol-XL) 100 MG 24 hr tablet, Take 1 tablet (100 mg) by mouth 2 times daily. Do not crush or chew., Disp: 180 tablet, Rfl: 0 montelukast (Singulair) 10 MG tablet, Take 1 tablet (10 mg) by mouth Nightly., Disp: 90 tablet, Rfl: 0 rosuvastatin (Crestor) 40 MG tablet, Take 1 tablet (40 mg) by mouth daily., Disp: 30 tablet, Rfl: 3 sertraline (Zoloft) 100 MG tablet, Take 1 tablet (100 mg) by mouth daily., Disp: 30 tablet, Rfl: 3 spironolactone (Aldactone) 25 MG tablet, Take 1 tablet (25 mg) by mouth daily., Disp: 30 tablet, Rfl: 5 torsemide (Demadex) 20 MG tablet, Take 2 tablets (40 mg) by mouth 2 times daily., Disp: 120 tablet, Rfl: 2 albuterol (2.5 MG/3ML) 0.083% nebulizer solution, Take 3 mL (2.5 mg) by nebulization as needed for wheezing or shortness of breath., Disp: 75 mL, Rfl: 3 Dnykqgicake-Oxlsvyizc-Ioarlv (Trelegy Ellipta) 100-62.5-25 MCG/ACT aerosol powder , Inhale 1 puff daily. (Patient not taking: Reported on 09/28/2024), Disp: 2 each, Rfl: 0 Rsavdnclwzy-Llikjamln-Oxqkza (Trelegy Ellipta) 100-62.5-25 MCG/ACT aerosol powder , Inhale 1 puff daily. (Patient not taking: Reported on 09/28/2024), Disp: 2 each, Rfl: 0 Wiuzwykuayu-Qlqhwelcm-Mecdqs (Trelegy Ellipta) 100-62.5-25 MCG/ACT aerosol powder , Inhale 1 Inhalation daily., Disp: 60 each, Rfl: 3 torsemide (Demadex) 20 MG tablet, Take 2.5 tablets (50 mg) by mouth 2 times daily for 7 days., Disp: 35 tablet, Rfl: 0 Review of Systems Respiratory: Positive for shortness of breath and wheezing. Cardiovascular: Positive for leg swelling. Negative for chest pain and palpitations. Gastrointestinal: Positive for abdominal distention. Negative for abdominal pain, constipation and diarrhea. OBJECTIVE BP 108/56 Pulse 63 Temp 36.7 C (98.1 F) (Temporal) Ht 5' 8" (1.727 m) Wt 188 lb 12.8 oz (85.6 kg) SpO2 91% Comment: 93 POX on room air _JW PROVIDER RELATIONS MANAGER BMI 28.71 kg/m Physical Exam HENT: Mouth/Throat: Mouth: Mucous membranes are moist. Cardiovascular: Rate and Rhythm: Normal rate and regular rhythm. Pulmonary: Breath sounds: Wheezing present. Comments: 2 L oxygen at home Wheezing on the right lungs and lower left lobes Abdominal: General: Bowel sounds are normal. There is distension. Tenderness: There is no abdominal tenderness. There is no guarding. Musculoskeletal: Right lower leg: Edema present. Left lower leg: Edema present. Neurological: Mental Status: He is alert. Olya Nunes Family medicine Pt asked if they have been to specialist,been in ER /hospitalized or had testing since last visit. No_ Dc'd from hospital Patient was able to ambulate safely to the examination room. pushed in w/c by visitor Provider was not notified of possible fall risk DIRECT SUPERVISION SERVICE TO BE BILLED USING TEACHING PHYSICIAN MUSTAPHA -MARCIO I performed a history and physical examination of the patient and discussed his management with the resident. I reviewed the resident's note and agree with the documented findings and plan of care. documented in this encounter [facility] 09-25-2024 Telephone encounter Note Patient had a KISHAN appointment scheduled for 09/21/2024 and cancelled. [facility] 09-25-2024 Miscellaneous Notes Patient had a KISHAN appointment scheduled for 09/21/2024 and cancelled. S: Raya from [facility] spoke with VERONICA nurse regarding breathing problem. B: Onset of symptoms/concern today. [facility] admission 09/10-09/16/2024 - CHF A: Raya, physical therapist with [facility] reports she just left the patients home and the patient's vitals were WNL but his SpO2 was 88% on RA while sitting on the couch when she arrived to the home. Reports patient dropped to 79% on RA with ambulation. Reports she auscultated course crackles in LLL with wheezing. Reports the patient does not have a home O2 order but has a concentrator in the home and she placed him on 3L and he was 93% on 3L prior to her leaving the home. Reports patient has also had a 5.8 pound weight gain since Saturday. R: Raya advised message would be sent to provider for review. Raya verbalized understanding. finger lift operator provider Dr. Casper messaged at this time. Per Dr. Casper, "We will give him a call and handle it with him directly." Per Dr. Casper, the patient is unable to be contacted and they would like this RN to attempt to contact patient at this time. Attempted to contact patient and patient's emergency contact without success, voicemail left. Dr. Casper notified. Per Dr. Casper, "Great, thank you for trying. I will attempt again in an hour. Thank." Per Dr. Holguin, Please reach out to patient and emergency contact and have pt be evaluated in the ED. Thank you. If patient is unreachable, please escalate to a safety call." Patient and emergency contact remain unreachable. Patient's address verified with PT Raya. Patient is currently staying at [address] [place] [address]. This RN spoke with [facility] at this time. Per dispatch, EMS is on their way to patient's residence at this time. Dr. Holguin notified. No new orders received. Dispatch contacted this RN. Per dispatch the patient and Melodie are asleep in the home and the patient did not appear in distress, "checked out okay with EMS." Dr. Holguin and Dr. Casper notified at this time. Per Dr. Casper, "Please advise patient to come to ED in the event of worsening of SOB. He needs to be assessed." Melodie advised, verbalized understanding with read back. Dr. Holguin and Dr. Casper notified. No new orders received. No further needs at this time. Melodie advised to call back with further questions or concerns. Reason for Disposition Oxygen level (e.g., pulse oximetry) 90% or lower Protocols used: Breathing Qhvtufimht-OMFYF-QM documented in this encounter [facility] 09-24-2024 Telephone encounter Note I received a call from VERONICA Arcos RN regarding Krystina Markham, 69 y.o.,male who was recently admitted on 09/10 for an exacerbation of congestive heart failure. He was admitted with symptoms of increasing shortness of breath, fatigue, and bilateral lower extremity edema, with associated weight gain. On admission, he was treated with diuretics and heart failure medications, and his condition stabilized prior to discharge. He was instructed to monitor his weight daily and to follow up with his analytics director. At discharge, he was not prescribed home oxygen therapy. VERONICA relayed a message from the physical therapist from [facility], regarding a recent visit to the patient s home. During the visit, the patient s vitals were within normal limits; however, his SpO2 was noted to be 88% on room air while sitting on the couch, dropping to 79% on room air with ambulation. Raya auscultated coarse crackles in the left lower lung lobe with wheezing. The patient does not have a home oxygen order but does have a concentrator, which Raya placed him on 3L of oxygen, improving his SpO2 to 93% prior to her leaving. Additionally, the patient had a 5.8-pound weight gain since Saturday. After receiving this information, I attempted to contact the patient multiple times but was unable to reach him. Staff was able to get in touch with the home care PT, who confirmed the patient is currently staying at his ex- s home. I recommended that the patient be assessed in the emergency department for further evaluation of his respiratory status and fluid retention. I also advised that a safety call should be made. EMS was en route at the time of the call. Liza Casper MD [facility] 09/24/24 5:59 PM [facility] Work Phone: 09-24-2024 Miscellaneous Notes I received a call from VERONICA Arcos RN regarding Krystina Markham, 69 y.o.,male who was recently admitted on 09/10 for an exacerbation of congestive heart failure. He was admitted with symptoms of increasing shortness of breath, fatigue, and bilateral lower extremity edema, with associated weight gain. On admission, he was treated with diuretics and heart failure medications, and his condition stabilized prior to discharge. He was instructed to monitor his weight daily and to follow up with his analytics director. At discharge, he was not prescribed home oxygen therapy. VERONICA relayed a message from the physical therapist from [facility], regarding a recent visit to the patient s home. During the visit, the patient s vitals were within normal limits; however, his SpO2 was noted to be 88% on room air while sitting on the couch, dropping to 79% on room air with ambulation. Raya auscultated coarse crackles in the left lower lung lobe with wheezing. The patient does not have a home oxygen order but does have a concentrator, which Raya placed him on 3L of oxygen, improving his SpO2 to 93% prior to her leaving. Additionally, the patient had a 5.8-pound weight gain since Saturday. After receiving this information, I attempted to contact the patient multiple times but was unable to reach him. Staff was able to get in touch with the home care PT, who confirmed the patient is currently staying at his ex- s home. I recommended that the patient be assessed in the emergency department for further evaluation of his respiratory status and fluid retention. I also advised that a safety call should be made. EMS was en route at the time of the call. Liza Casper MD [facility] 09/24/24 5:59 PM documented in this encounter [facility] 09-24-2024 Telephone encounter Note S: Raya from [facility] Physical Therapy spoke with CAC nurse regarding breathing problem. B: Onset of symptoms/concern today. [facility] admission 09/10-09/16/2024 - CHF A: Raya, physical therapist with [facility] reports she just left the patients home and the patient's vitals were WNL but his SpO2 was 88% on RA while sitting on the couch when she arrived to the home. Reports patient dropped to 79% on RA with ambulation. Reports she auscultated course crackles in LLL with wheezing. Reports the patient does not have a home O2 order but has a concentrator in the home and she placed him on 3L and he was 93% on 3L prior to her leaving the home. Reports patient has also had a 5.8 pound weight gain since Saturday. R: Raya advised message would be sent to provider for review. Raya verbalized understanding. finger lift operator provider Dr. Casper messaged at this time. Per Dr. Casper, "We will give him a call and handle it with him directly." Per Dr. Casper, the patient is unable to be contacted and they would like this RN to attempt to contact patient at this time. Attempted to contact patient and patient's emergency contact without success, voicemail left. Dr. Casper notified. Per Dr. Casper, "Great, thank you for trying. I will attempt again in an hour. Thank." Per Dr. Holguin, Please reach out to patient and emergency contact and have pt be evaluated in the ED. Thank you. If patient is unreachable, please escalate to a safety call." Patient and emergency contact remain unreachable. Patient's address verified with PT Raya. Patient is currently staying at [address] [place] [address]. This RN spoke with [facility] at this time. Per dispatch, EMS is on their way to patient's residence at this time. Dr. Holguin notified. No new orders received. Dispatch contacted this RN. Per dispatch the patient and Melodie are asleep in the home and the patient did not appear in distress, "checked out okay with EMS." Dr. Holguin and Dr. Casper notified at this time. Per Dr. Casper, "Please advise patient to come to ED in the event of worsening of SOB. He needs to be assessed." Melodie advised, verbalized understanding with read back. Dr. Holguin and Dr. Casper notified. No new orders received. No further needs at this time. Melodie advised to call back with further questions or concerns. Reason for Disposition Oxygen level (e.g., pulse oximetry) 90% or lower Protocols used: Breathing [id number] [facility] 09-22-2024 History of Present illness Narrative 09/22/24 Community Health Worker Patient active with: [facility] Chart review completed. Follow up Appointments 12/23 Cardiology Placed call, no answer, left voice message identify self and reason for call, left contact information and request a call back. Outreach scheduled documented in this encounter [facility] 09-16-2024 Miscellaneous Notes Patient Choice Patient Name: KRYSTINA MARKHAM Date of : 1955 All Providers Sent Referral Name: [facility] Phone: [phone] Address: [address] [place] [address] [facility] notified of discharge home today. Problem: Knowledge Deficit Goal: Patient/family/caregiver demonstrates understanding of disease process, treatment plan, medications, and discharge instructions Outcome: Progressing Problem: Hemodynamic Status Goal: Patient's vitals signs are stable Outcome: Progressing Problem: Excessive Fluid Volume Goal: Fluid and electrolyte balance are achieved/maintained Outcome: Progressing Problem: Inadequate Gas Exchange Goal: Patient is adequately oxygenated and ventilation is improved Outcome: Progressing Goal: Nutritional status is improving Outcome: Progressing Problem: Activity Intolerance/Impaired Mobility Goal: Mobility/activity is maintained at optimum level for patient Outcome: Progressing Problem: Nutrition Goal: Nutritional status is improving Outcome: Progressing Problem: Problem Interventions Goal: Assess Nutritional Intake Outcome: Progressing Start PACC Note Home Health Referral Educated patient and Melodie on Home Care and services available. Patient offered choice of available HHC and agreeable to SN services with [facility]. Please call Melodie on the way to her home, so she can put the dog in another room. Care Types: None Isolation Precautions: No active isolations Social Determinates of Health: Tobacco Use: Medium Risk (09/11/2024) Patient History Smoking Tobacco Use: Former Smokeless Tobacco Use: Never Passive Exposure: Not on file Social History Substance and Sexual Activity Alcohol Use Not Currently Alcohol/week: 7.0 standard drinks of alcohol Types: 7 Cans of beer per week Comment: once beer daily Social History Substance and Sexual Activity Drug Use Never Does the patient have any financial resource strain? No Does the patient have any food insecurities? No Does the patient have any housing instabilities? No If any of the above is noted as yes - consider a STUDIO OPERATIONS MANAGER evaluation once the patient returns home. START PATIENT REGISTRATION INFORMATION Order Information Order Signing Physician: Jose M Wiggins MD Service Ordered RN ?: Yes Service Ordered PT ?: No Service Ordered OT ?: No Service Ordered ST ?: No Service Ordered STUDIO OPERATIONS MANAGER?:No Service Ordered FILAMENT WELDER?: Yes Following Physician: Pedro Subramanian MD Following Physician Overseeing Physician: Dr Jose M Wiggins (Required for Residents only) Agreeable to Follow? Yes Date/Time of Call 09/15/24 5:00 PM, Spoke with: office family medicine at [place] Care Coordination Same Day SOC?: No Primary Care Physician: Pedro Subramanian MD Primary Care Physician Primary Care Physician Address: [address] [place] [address] / [facility] [id number] Visit Instructions: N/A Service Discharge Location Type: Home with Home Care Service Facility Name: N/A Service Floor Facility: N/A Service Room No: N/A Demographics Patient Last Name: Rashi Patient First Name: Krystina Language/Communication Barrier: NA Service Address: [address] [place] [address] Service City: [facility] ST: [place] Service ZIP: [address] Service Other phone numbers: Telephone Information: Emergency Contact: Extended Emergency Contact Information Primary Emergency Contact: Melodie Tavarez Address: [address] [place] [address]. [place] [address] [facility] Relation: Other Admission Information Admit Date: 09/10/2024 Patient status at discharge: Inpatient Admitting Diagnosis: Acute on chronic congestive heart failure, unspecified heart failure type (HCC) [I50.9] Caregiver Information Caregiver First Name: Melodie Caregiver Last Name: Ashia Caregiver Relationship to Patient ex Caregiver Caregiver Notes: pt will be staying with Melodie prior to returning to his home [employer] HIGHTECH: HI TECH - NEXT DAY REQUEST Requests Next Available SOC/EDGARDO END PATIENT REGISTRATION INFORMATION Pt Home Health goal home COVID Status 1. Do you have any upper respiratory symptoms (cough, SOB, Fever)? No 2. Have you been exposed to anyone with COVID-19 Virus? No Answer only if pending or positive for COVID-19? 1. Agreeable to wear PPE at each visit? NA 2. Is the hospital supplying them with PPE upon Discharge? NA Start PACC Summary General Report/ Additional Comments 69 y.o. male Patient was brought in to the ED due to shortness of breath at rest and exertion. He has leg swelling which has bene occurring for a month. He has a dry cough and a PMH of CHF , COPD and on oxygen. On past visits per ED notes, swelling occurs from the legs into the groin and abdomen. He is a poor historian and his ex- was not present. Denies alcohol use. He denies light headedness. Chest pain and chest tightness. He is able to ambulate with his portable oxygen He is voiding appropriately Discharge Date: pending Referral Source-PACC: (Hospital/Unit): [facility] / B2-254/B2-254 B End PACC Note Return call from Melodie, ex - pt will be coming to her home when discharged. Address: [address] [place], [place] [address] [id number] She is agreeable for home care services coming to her home to provide services. Spoke to patient regarding home care SN services after discharge. Pt is agreeable. Pt unsure if he will be going home to his address, or to his ex , Melodie's home. Permission given by pt to call Melodie to confirm what address will be plan at discharge. Called Melodie and left HIPAA compliant message and call back number. Pt admitted for acute on chronic CHF. Chart reviewed. Receiving IV Lasix, +3 pitting edema extensive. PT recommending home with HHC. Tasked HHC to follow. On room air at this time. No other needs noted at this time. manager assisted living to follow and assist as needed. Machine Precision Etcher following case for Discharge Needs. Problem: Knowledge Deficit Goal: Patient/family/caregiver demonstrates understanding of disease process, treatment plan, medications, and discharge instructions Outcome: Progressing Problem: Hemodynamic Status Goal: Patient's vitals signs are stable Outcome: Progressing Problem: Excessive Fluid Volume Goal: Fluid and electrolyte balance are achieved/maintained Outcome: Progressing Problem: Inadequate Gas Exchange Goal: Patient is adequately oxygenated and ventilation is improved Outcome: Progressing Problem: Inadequate Gas Exchange Goal: Nutritional status is improving Outcome: Progressing Problem: Activity Intolerance/Impaired Mobility Goal: Mobility/activity is maintained at optimum level for patient Outcome: Progressing Problem: Knowledge Deficit Goal: Patient/family/caregiver demonstrates understanding of disease process, treatment plan, medications, and discharge instructions Outcome: Progressing Problem: Hemodynamic Status Goal: Patient's vitals signs are stable Outcome: Progressing Problem: Excessive Fluid Volume Goal: Fluid and electrolyte balance are achieved/maintained Outcome: Progressing Problem: Inadequate Gas Exchange Goal: Patient is adequately oxygenated and ventilation is improved Outcome: Progressing Goal: Nutritional status is improving Outcome: Progressing Problem: Activity Intolerance/Impaired Mobility Goal: Mobility/activity is maintained at optimum level for patient Outcome: Progressing Problem: Nutrition Goal: Nutritional status is improving Outcome: Progressing Problem: Problem Interventions Goal: Assess Nutritional Intake Outcome: Progressing Problem: Knowledge Deficit Goal: Patient/family/caregiver demonstrates understanding of disease process, treatment plan, medications, and discharge instructions Outcome: Progressing Problem: Hemodynamic Status Goal: Patient's vitals signs are stable Outcome: Progressing Problem: Excessive Fluid Volume Goal: Fluid and electrolyte balance are achieved/maintained Outcome: Progressing Problem: Inadequate Gas Exchange Goal: Patient is adequately oxygenated and ventilation is improved Outcome: Progressing Goal: Nutritional status is improving Outcome: Progressing Problem: Activity Intolerance/Impaired Mobility Goal: Mobility/activity is maintained at optimum level for patient Outcome: Progressing Problem: Nutrition Goal: Nutritional status is improving Outcome: Progressing Problem: Problem Interventions Goal: Assess Nutritional Intake Outcome: Progressing Problem: Knowledge Deficit Goal: Patient/family/caregiver demonstrates understanding of disease process, treatment plan, medications, and discharge instructions Outcome: Progressing Problem: Hemodynamic Status Goal: Patient's vitals signs are stable Outcome: Progressing Problem: Excessive Fluid Volume Goal: Fluid and electrolyte balance are achieved/maintained Outcome: Progressing Problem: Inadequate Gas Exchange Goal: Patient is adequately oxygenated and ventilation is improved Outcome: Progressing Goal: Nutritional status is improving Outcome: Progressing Problem: Activity Intolerance/Impaired Mobility Goal: Mobility/activity is maintained at optimum level for patient Outcome: Progressing Problem: Nutrition Goal: Nutritional status is improving Outcome: Progressing Problem: Problem Interventions Goal: Assess Nutritional Intake Outcome: Progressing Problem: Knowledge Deficit Goal: Patient/family/caregiver demonstrates understanding of disease process, treatment plan, medications, and discharge instructions Outcome: Progressing Problem: Hemodynamic Status Goal: Patient's vitals signs are stable Outcome: Progressing Problem: Excessive Fluid Volume Goal: Fluid and electrolyte balance are achieved/maintained Outcome: Progressing Problem: Inadequate Gas Exchange Goal: Patient is adequately oxygenated and ventilation is improved Outcome: Progressing Goal: Nutritional status is improving Outcome: Progressing Problem: Activity Intolerance/Impaired Mobility Goal: Mobility/activity is maintained at optimum level for patient Outcome: Progressing Problem: Nutrition Goal: Nutritional status is improving Outcome: Progressing documented in this encounter [facility] 09-16-2024 Note Formatting of this n ote might be different from the original. Patient Choice Patient Name: KRYSTINA MARKHAM Date of : 1955 All Providers Sent Referral Name: [facility] Phone: [phone] Address: [address] [place] [address] [facility] 09-16-2024 Note Formatting of this n ote might be different from the original. Patient Choice Patient Name: KRYSTINA MARKHAM Date of : 1955 All Providers Sent Referral Name: [facility] Phone: [phone] Address: [address] [place] [address] [facility] 09-16-2024 Note Formatting of this n ote might be different from the original. [facility] notified of [facility] home today. [facility] Note Formatting of this n ote might be different from the original. [facility] notified of discharge home today. [facility] 09-16-[facility]24 Note [facility] 09-16-2024 Hospital course Narrative Images from the original note were not included. [facility] Service Discharge Summary Patient: Krystina Markham : 1955 Acct: [id number] PCP: Pedro Subramanian MD Admitting Physician: Jose M Wiggins MD Admission Date: 09/10/2024 Discharge Date: Visit Status: Admission Code Status: Full Code Admission Diagnosis: Acute on chronic congestive heart failure, unspecified heart failure type (HCC) [I50.9] Present on Admission: Acute on chronic congestive heart failure, unspecified heart failure type (HCC) Discharge Diagnoses: Principal Problem: Acute on chronic congestive heart failure, unspecified heart failure type (HCC) HOSPITAL COURSE: Krystina Markham is a 69 y.o. male with PMH of HFrEF (EF21%), DELORES, COPD presented with dyspnea 2/2 to CHF exacerbation. He was recently admitted to [facility] with a similar presentation in August. He has significant lower extremity edema that extends into his groin and into the abdomen. On admission he relieved IV lasix 40 mg TID to help relieve the patient's significant lower extremity edema. His pulmonary vascular congestion has resolved and reports feeling better. On 09/14, the patient was still S/P IV lasix TID. Although his dyspnea and pulmonary vascular congestion has largely resolved, his BNP is still elevated and he continues to have significant bilateral lower extremity pitting edema. The treatment is working as the patient is having frequent urination. Will continue to medical management. 09/15-: The patient has responded well to the IV lasix TID. He will be discharged on Torsemide 40 mg BID. He must follow up for a repeat BMP outpatient as we monitor his Creatinine and potassium on his increased dose of torsemide. The patient is medically stable for discharge. Significant Medication Changes: Torsemide 40 mg BID Farxiga 5 mg once daily RECOMMENDED NEXT STEPS: Follow up BMP SIGNIFICANT DIAGNOSTIC STUDIES: XR chest 1 view Final Result CHF with interstitial edema and pleural effusions. Report Dictated on Electronically Signed By: Shaun Wilson MD Electronically Signed Date/Time: 09/10/2024 3:03 PM EST Consultants: IP CONSULT TO CASE MANAGEMENT IP CONSULT TO SOCIAL WORK Pending Inpatient Studies: No Discharge Instructions: Diet: Adult diet Regular Activity: No restriction. Disposition: Home Recommended Follow Up: No follow-up provider specified. Discharge Medications: Medication List ASK your doctor about these medications albuterol (2.5 MG/3ML) 0.083% nebulizer solution TAKE 3 MLS VIA NEBULIZATION ONCE NEEDED FOR WHEEZING OR SHORTNESS OF BREATH FOR UP TO 75 DOSES doxycycline 100 MG capsule Commonly known as: Vibramycin Take 1 capsule (100 mg) by mouth 2 times daily for 10 days. Take with at least 8 ounces (large glass) of water, do not lie down for 30 minutes after Ask about: Should I take this medication? * Eliquis 5 MG tablet Generic drug: apixaban Take 1 tablet (5 mg) by mouth 2 times daily. * apixaban 5 MG tablet Commonly known as: Eliquis Take 1 tablet (5 mg) by mouth 2 times daily. folic acid 1 MG tablet Commonly known as: Folvite losartan 25 MG tablet Commonly known as: Cozaar Take 0.5 tablets (12.5 mg) by mouth daily. metoprolol succinate XL 100 MG 24 hr tablet Commonly known as: Toprol-XL TAKE 1 TABLET (100 MG) BY MOUTH IN THE MORNING AND 1 TABLET (100 MG) BEFORE BEDTIME. DO NOT CRUSH OR CHEW.. montelukast 10 MG tablet Commonly known as: Singulair TAKE 1 TABLET BY MOUTH EVERY EVENING rosuvastatin 40 MG tablet Commonly known as: Crestor sertraline 100 MG tablet Commonly known as: Zoloft spironolactone 25 MG tablet Commonly known as: Aldactone Take 1 tablet (25 mg) by mouth daily. torsemide 20 MG tablet Commonly known as: Demadex * Trelegy Ellipta 100-62.5-25 MCG/ACT aerosol powder Generic drug: Dvbvezlfhms-Hmpnfehfs-Yscgdh Inhale 1 puff daily. * Trelegy Ellipta 100-62.5-25 MCG/ACT aerosol powder Generic drug: Vdzcsfifybh-Vzxxzshdz-Lytgxt Inhale 1 puff daily. * This list has 4 medication(s) that are the same as other medications prescribed for you. Read the directions carefully, and ask your doctor or other care provider to review them with you. Follow up questions for RN/MA: 1. Did you get medications filled and taking them as instructed from discharge? 2. Are you following your discharge instructions from your hospital stay? Signed: Mayda Shankar MD 09/10/2024 6:37 PM Cosigned by Jose M Wiggins MD at 09/16/2024 1:19 PM EST documented in this encounter [facility] 09-16-2024 Hospital Discharge instructions Toi Davis MD - 09/16/2024 12:37 PM EST GENERAL SIGNS AND SYMPTOMS GREEN ZONE: All Clear- Your Symptoms Are Under Control No recurrence of symptoms that led to hospitalization Able to do usual activities No fever No chest pain No shortness of breath This Means You Should: Continue taking your medications as prescribed Continue activity as tolerated Keep all doctor appointments YELLOW ZONE: Caution as Your Health may be Worsening Recurrence of symptoms that led to hospitalization Fever of 100 degrees or higher Increased fatigue or restlessness Intolerant side-effects of medications Uneasy feeling or that something is wrong This Means You Should: Call your doctor for further instructions Pedro Subramanian MD [phone] [address] [facility] / [facility] [id number] RED ZONE: Medical Alert Severe or unrelieved shortness of breath at rest Unrelieved chest pain Confusion or you can't think clearly This Means You Should Call 911 Immediately MAKE AN APPOINTMENT TO FOLLOW-UP WITH YOUR PCP IN 1 WEEK: Pedro Subramanian MD [address] [facility] / [facility] [id number] FOLLOW- UP WITH IN 7-10 DAYS: Get a repeat BMP done in 1 week. STOP TAKING START TAKING Torsemide 40 mg TWICE a day. This means you will be taking a total of 80 mg in a day. Example; 40 mg in the morning and 40 mg at night Farxiga 5 mg once daily CONTINUE HOME MEDS THAT ARE NOT THE ONES ABOVE Kathryn Ledesma RN - 09/16/2024 12:49 PM EST As tolerate Whitley Shanks RN - 09/15/2024 5:14 PM EST Images from the original note were not included. Continuity of Care Form Patient Name: Krystina Markham : 1955 Admit date: 09/10/2024 Discharge date: Code Status Order: Full Code Advance Directives: N Admitting Physician: Jose M Wiggins MD PCP: Pedro Subramanian MD Discharging Nurse: Discharging Hospital Unit/Room#: B2-254/B2-254 B Discharging Unit Phone Number: Emergency Contact: Extended Emergency Contact Information Primary Emergency Contact: Melodie Tavarez Address: [address] [place] [address] Mobile Relation: Other Past Surgical History: Past Surgical History: Procedure Laterality Date ABDOMINAL SURGERY BRONCHOSCOPY 02/25/2020 BRONCHOSCOPY (HISTORICAL) 02/25/2020 COLONOSCOPY 10/27/[address] CHEST ANGIOGRAM W AND/OR WO IV CONTRAST 07/12/2022 CT CHEST ANGIOGRAM W AND/OR WO IV CONTRAST 07/12/2022 [facility] CT IMAGING FINGER AMPUTATION Left HERNIA REPAIR NOSE SURGERY PACEMAKER (HISTORICAL) Immunization History: Immunization History Administered Date(s) Administered Influenza, High Dose Seasonal, Preservative Free 07/25/2022 Influenza, Unspecified 08/15/2014 Influenza, injectable, quadrivalent, preservative free 09/15/2019, 11/21/2020, 10/13/2021 Pneumococcal Conjugate PCV20, Pf (Prevnar 20) 01/07/2023 Pneumococcal Polysaccharide PPSV23 01/16/2016 Tdap 08/15/2014 Active Problems: Medical Problems Problem List * (Principal) Acute on chronic congestive heart failure, unspecified heart failure type (HCC) Chest pain, unspecified type Hypochloremia Tobacco abuse Presence of implantable cardioverter-defibrillator (ICD) Overview Signed 11/12/2023 12:46 AM by Gifty Holguin MD Biventricular ICD placed in 2019 Alcohol abuse, continuous COPD exacerbation (HCC) Hyponatremia Closed fracture of neck of left humerus with routine healing Anemia in other chronic diseases classified elsewhere Acute exacerbation of CHF (congestive heart failure) (HCC) Medical non-compliance On continuous oral anticoagulation Right arm numbness Persistent depressive disorder DELORES (obstructive sleep apnea) Poor compliance with medication Non-pressure chronic ulcer of other part of right foot with unspecified severity (HCC) Diabetes due to undrl condition w oth diabetic neuro comp (HCC) Alcohol abuse with withdrawal, uncomplicated (HCC) Cervical spondylosis Paroxysmal atrial fibrillation (HCC) DELORES on CPAP Heavy tobacco smoker Cigarette smoker Personal history of smoking Pulmonary HTN (HCC) Financial difficulties Moderate malnutrition (CMS/HCC) (HCC) Apical mural thrombus Permanent atrial fibrillation (HCC) History of rib fracture Overview Signed 07/19/2022 9:05 AM by Eunice Pritchett MD Multiple left side 2020 Cor, pulmonale, acute (CMS/HCC) (HCC) Chronic hyponatremia Overview Addendum 11/12/2023 12:46 AM by Gifty Holguin MD Na usually 124-128. Beer potomania Essential hypertension Compression fracture of thoracic vertebra with routine healing Osteoporosis Diverticulosis of large intestine without diverticulitis History of adenomatous polyp of colon Raynaud phenomenon COPD (chronic obstructive pulmonary disease) ([facility]) Venous stasis dermatitis of left lower extremity Current moderate episode of major depressive disorder without prior episode ([facility]) HFrEF (heart failure with reduced ejection fraction) ([facility]) Overview Addendum 07/19/2022 9:03 AM by Eunice Pritchett MD EF 20% in 2019 repeat 07/24. Has icd pacer. Past apical mural thrombus 2019 -on anticoag Isolation/Infection: No active isolations MRSA Nurse Assessment: Last Vital Signs: BP 102/63 (BP Location: Left arm, Patient Position: Sitting) Pulse 52 Temp 36.8 C (98.2 F) (Temporal) Resp 12 Ht 1.753 m (5' 9") Wt 81.7 kg (180 lb 3.2 oz) Comment: standing SpO2 91% BMI 26.61 kg/m Last documented pain score (0-10 scale): Last Weight: Wt Readings from Last 1 Encounters: 09/15/24 81.7 kg (180 lb 3.2 oz) Mental Status: {MALIKA Patient Mental Status:84764} IV Access: {MALIKA IV Access:25465} Nursing Mobility/ADLs: Walking {ANA LAURA ADL:73676::"Independent"} Transfer {ANA LAURA ADL:26337::"Independent"} Bathing {ANA LAURA ADL:12305::"Independent"} Dressing {ANA LAURA ADL:20449::"Independent"} Toileting {ANA LAURA ADL:60225::"Independent"} Feeding {AN ALAURA ADL:86891::"Independent"} Greenhouse Florist {ANA LAURA ADL:50482::"Independent"} Med Delivery {yes/no:67861} Wound Care Documentation and Therapy: Elimination: Continence: Bowel: {yes/no:15117} Bladder: {yes/no:56395} Urinary Catheter: {MALIKA Urinary Catheter:12110} Colostomy/Ileostomy/Ileal Conduit: {YES / NO:} Date of Last BM: No intake or output data in the 24 hours ending 09/15/24 1714 I/O last 3 completed shifts: In: 1220 (14.9 mL/kg) [P.O.:1220] Out: 300 (3.7 mL/kg) [Urine:300 (0.1 mL/kg/hr)] Weight: 81.7 kg Safety Concerns: {MALIKA Safety Concerns:11458} Impairments/Disabilities: {MALIKA Impairments/Disabilities:03918} Nutrition Therapy: Current Nutrition Therapy: {MALIKA Diet List:58067} Routes of Feeding: {routes of feedin} Liquids: {liquid consistency:59673} Daily Fluid Restriction: {daily fluid restriction:61547} Last Modified Barium Swallow with Video (Video Swallowing Test): {done not done:27395} Treatments at the Time of Hospital Discharge: Respiratory Treatments: Oxygen Therapy: {Therapy; copd oxygen:03321} Ventilator: {MALIKA Ventilator:18012} Rehab Therapies: {GEN THERAPY DISCIPLINE SCAL:9643979} Weight Bearing Status/Restrictions: {POD WEIGHT BEARIN} Other Medical Equipment (for information only, NOT a DME order): {Assistive Devices DME:03243} Other Treatments: Patient's personal belongings (please select all that are sent with patient): {MALIKA Patient Belongings:58640} RN SIGNATURE: {E-signature:47774} CASE MANAGEMENT/SOCIAL WORK SECTION Inpatient Status Date: Discharging to Facility/ Agency Name: [facility] Address: [address] [place] [address] Dialysis Facility (if applicable) Name: Address: Dialysis Schedule: Phone: Fax: Dusting And Brushing Machine Operator/Mess Attendant signature: {E-signature:03188} PHYSICIAN SECTION Name: Krystina Markham Prognosis: {Rehab Prognosis:87005} Condition at Discharge: {Patient Condition:75020} Rehab Potential (if transferring to Rehab): {Rehab Prognosis:34191} Recommended Labs or Other Treatments After Discharge: The individual is being admitted to a nursing facility directly from an [facility] or a unit of a [facility] that is not operated by or licensed by [facility] under section 5119.14 or 5160-3-15.1 5 The individual requires the level of services provided by a nursing facility for the condition for which he or she was treated in the hospital and, Physician Certification: I certify the above information and transfer of Krystina Markham is necessary for the continuing treatment of the diagnosis listed and that he requires {MALIKA Level of Care:47668} for {greater less than:80618} 30 days. Update Admission H&P: {MALIKA Changes in H&P:91923} PHYSICIAN SIGNATURE: {E-signature:36138} documented in this encounter [facility] 09-16-2024 History of Present illness Narrative Images from the original note were not included. Speech-Language Pathology SPEECH LANGUAGE PATHOLOGY [facility] Dysphagia Treatment Note Patient Name: Krystina Markham Evaluation Date: 09/16/2024 Date of : 1955 Admission Date: 09/10/2024 1:54 PM Age: 69 y.o. Room[facility]Bed: [facility] B Subjective Patient alert and cooperative. Seen upright sitting edge of bed. No visitors at bedside. Pain: Pt denies any current pain. PPE Worn: surgical mask, gloves Objective & Assessment Dysphagia Treatment Dysphagia Activity 1: Assess prandial tolerance of po diet. Pt is taking Easy to chew diet without overt deficits. Pt is edentulous, however functionally manages as long as not very hard raw such as nuts and seeds. Continue to recommend regular diet. No further concerns. Plan & Recommendations Plan: ST to sign off. Suggest regular diet with thin liquids. Recommend Regular solids and Thin liquids and meds as tolerated and the following precautions: - Upright positioning for all PO intake D/C Recommendations: No follow up therapy recommended post discharge Education Education Given: diet recommendations Given To: patient Response: verbalizes understanding Goals Patient Stated Goal: To go home. Encounter Problems Encounter Problems (Active) Swallowing Patient will tolerate the least restrictive diet consistency to allow for safe consumption of daily meals (Progressing) Start: 09/14/24 Expected End: 09/21/24 Patient will demonstrate safe swallowing Intervention/techniques (Progressing) Start: 09/14/24 Expected End: 09/21/24 Therapy Time SALES SUPPORT CONSULTANT Individual Minutes Time In: 1233 Time Out: 1241 Minutes: 8 MICKIE Jacome MTS ATTENDING NOTE Case discussed with residents. Agree with findings and plan as documented in resident note. Independent exam done. Chief Complaint Patient presents with Groin Swelling Leg Swelling Fatigue the swelling has been a problem for at least a month Swelling is improved. No SOB. No complaints. BP 115/67 Pulse 69 Temp 36 C (96.8 F) (Temporal) Resp 20 Ht 5' 9" (1.753 m) Wt 176 lb 9.6 oz (80.1 kg) SpO2 93% BMI 26.08 kg/m WT: 202 down to 176 Gen: sleeping,easily awakens Lungs: CTA bilat Ext: 1-2+ LE edema, no upper leg involvement Lab Results Component Value Date WBC 6.2 09/16/2024 HGB 12.1 (L) 09/16/2024 HCT 36.2 (L) 09/16/2024 MCV 92.8 09/16/2024 PLT 220 09/16/2024 Lab Results Component Value Date GLUCOSE 144 (H) 09/16/2024 CALCIUM 8.4 (L) 09/16/2024 NA 135 (L) 09/16/2024 K 4.2 09/16/2024 CO2 26 09/16/2024 CL 100 09/16/2024 BUN 24 (H) 09/16/2024 CREATININE 0.89 09/16/2024 A: HFrEF w/acute exacerbation COPD/Chronic Respiratory Failure Anasarca-improving Cirrhosis-stable A Fib Pacemaker/Defib status DELORES Tobacco Use DO Alcohol Abuse-now remission Hx of PE Low Albumin-likely related to malnutrition and #4 Hyponatremia-mild P: Dry BNPT today Change to oral diuretics (torsemide 40mg twice a day) and discharge. Will need follow up BMP for K and Cr Continue alcohol cessation. Understanding expressed Images from the original note were not included. Medical Teaching Service Progress Note Patient: Krystina Markham : 1955 Acct: [id number] PCP: Pedro Subramanian MD Admitting Physician: Jose M Wiggins MD Admission Date: 09/10/2024 Admitting Diagnosis: Acute on chronic congestive heart failure, unspecified heart failure type (HCC) [I50.9] Unit/Bed: B2-254/B2-254 B Hospital Day: 6 Code Status: Full Code Subjective: Overnight events: No significant overnight events. Objective: Vitals: 09/16/24 0558 09/16/24 0612 09/16/24 0826 09/16/24 0853 BP: 94/60 115/67 BP Location: Patient Position: Pulse: 70 69 Resp: 20 Temp: 36 C (96.8 F) TempSrc: Temporal SpO2: 92% 93% Weight: 176 lb 9.6 oz (80.1 kg) Height: Temp (24hrs), Av.6 C (97.8 F), Min:36 C (96.8 F), Max:37.1 C (98.7 F) Intake/Output Summary (Last 24 hours) at 09/16/2024 0854 Last data filed at 09/16/2024 0526 Gross per 24 hour Intake 1250 ml Output -- Net 1250 ml Physical Exam HENT: Nose: No congestion or rhinorrhea. Cardiovascular: Rate and Rhythm: Normal rate and regular rhythm. Pulses: Normal pulses. Heart sounds: Normal heart sounds. Pulmonary: Effort: Pulmonary effort is normal. No respiratory distress. Breath sounds: Normal breath sounds. No wheezing or rales. Chest: Chest wall: No tenderness. Abdominal: General: Abdomen is flat. Bowel sounds are normal. There is no distension. Palpations: Abdomen is soft. Tenderness: There is no abdominal tenderness. Musculoskeletal: General: Swelling (improving) present. Neurological: General: No focal deficit present. Mental Status: He is alert. Motor: No weakness. Gait: Gait normal. Psychiatric: Mood and Affect: Mood normal. Behavior: Behavior normal. Polanco: No Drains: No Central Line/Port: No Intubated: No Diet: Adult diet Easy to Chew Medications: apixaban, 5 mg, Oral, BID dapagliflozin, 5 mg, Oral, Daily folic acid, 1 mg, Oral, Daily furosemide, 40 mg, IntraVENous, TID ipratropium-albuterol, 3 mL, Nebulization, q4h WA losartan, 12.5 mg, Oral, Daily metoprolol succinate XL, 100 mg, Oral, BID mometasone-formoterol, 2 puff, Inhalation, BID nicotine, 1 patch, TransDERmal, Daily rosuvastatin, 40 mg, Oral, Daily sertraline, 100 mg, Oral, Daily spironolactone, 25 mg, Oral, Daily tiotropium, 2 puff, Inhalation, Daily [Held by provider] torsemide, 20 mg, Oral, Once Continuous Infusions: PRN Meds: PRN medications: acetaminophen OR acetaminophen, ondansetron ODT OR ondansetron, polyethylene glycol (PEG) 3350 Labs: CBC: Results from last 7 days Lab Units 09/16/2441209/15/2425609/14/24324 WBC AUTO 10*3/uL 6.2 7.4 6.9 HEMOGLOBIN g/dL 12.1* 11.9* 11.3* HEMATOCRIT % 36.2* 35.6* 33.6* PLATELETS 10*3/uL 220 177 143 NEUTROS PCT AUTO % 77.0 74.2 77.6 LYMPHS PCT AUTO % 10.8* 12.1* 9.1* MONOS PCT AUTO % 10.7 10.5 11.7 EOS PCT AUTO % 0.6 2.0 1.0 BMP: Results from last 7 days Lab Units 09/16/2441209/15/2425609/14/24 0325 SODIUM mmol/L 135* 131* 134* POTASSIUM mmol/L 4.2 4.0 3.6 CHLORIDE mmol/L 100 95* 96* CO2 mmol/L 26 27 30 BUN mg/dL 24* 18 18 CREATININE mg/dL 0.89 0.79 0.70* GLUCOSE mg/dL 144* 120* 130* CALCIUM mg/dL 8.4* 8.4* 8.5* LIVER PROFILE: Results from last 7 days Lab Units 09/16/2441209/15/2425609/14/2432409/11/24 0341 09/10/24 1435 ALK PHOS U/L 181* 202* 160* < > 212* BILIRUBIN TOTAL mg/dL 0.5 0.6 0.6 < > 1.0 BILIRUBIN DIRECT mg/dL -- -- -- -- 0.5* PROTEIN TOTAL g/dL 6.8 6.7 6.3* < > 6.3* ALT U/L 33 35 30 < > 36 AST U/L 63* 57* 47* < > 62* < > = values in this interval not displayed. PT/INR: Results from last 7 days Lab Units 09/12/24 0157 APTT s 32.9* INR 1.2* CARDIAC ENZYMES: Procalcitonin: No results found for: "PROCAL" Glucose: ASSESSMENT/PLAN: Patient Active Problem List Diagnosis Date Noted Moderate malnutrition ([facility]/HCC) ([facility]) 09/12/2024 Acute on chronic congestive heart failure, unspecified heart failure type ([facility]) 09/10/2024 Financial difficulties 08/20/2024 Pulmonary HTN ([facility]) 08/19/2024 DELORES on CPAP 04/15/2024 Heavy tobacco smoker 04/15/2024 Cigarette smoker 04/15/2024 Personal history of smoking 04/15/2024 Paroxysmal atrial fibrillation ([facility]) 03/03/2024 Cervical spondylosis 03/02/2024 Non-pressure chronic ulcer of other part of right foot with unspecified severity (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) 02/17/2024 Alcohol abuse with withdrawal, uncomplicated ([facility]) 02/17/2024 Right arm numbness 02/13/2024 Persistent depressive disorder 02/13/2024 DELORES (obstructive sleep apnea) 02/13/2024 Poor compliance with medication 02/13/2024 On continuous oral anticoagulation 11/21/2023 Acute exacerbation of CHF (congestive heart failure) ([facility]) 11/12/2023 Medical non-compliance 11/12/2023 Anemia in other chronic diseases classified elsewhere 01/01/2023 Closed fracture of neck of left humerus with routine healing 12/31/2022 Hyponatremia 12/29/2022 COPD exacerbation ([facility]) 09/13/2022 Alcohol abuse, continuous 07/28/2022 Presence of implantable cardioverter-defibrillator (ICD) 07/19/2022 Chest pain, unspecified type 07/17/2022 Hypochloremia 07/17/2022 Tobacco abuse 07/17/2022 HFrEF (heart failure with reduced ejection fraction) ([facility]) 07/17/2022 Permanent atrial fibrillation (HCC) 08/25/2021 History of rib fracture 08/25/2021 Chronic hyponatremia 08/25/2021 Essential hypertension 08/25/2021 COPD (chronic obstructive pulmonary disease) (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) 04/10/2017 Cor, pulmonale, acute (CMS/HCC) ([facility]) 02/01/2016 Raynaud phenomenon 09/10/2015 Assessment/Plan: Bilateral pitting edema with extension 2/2 HFrEF exacerbation, Biventricular ICD in place 07/2022 We will continue aggressive IV lasix as pitting edmea continues to be extensive. Pt's Creatinine is tolerating treatment Pitting edema is starting to resolve possible dc in 24 hrs BNP 12,525 (3wks) > 9,148 > ( 8,635) - lasix 40 mg IV TID due to excessive pitting edema - Strict I/O : pending / not recorded - repeat BNP - metoprolol succinate 100 mg BID - Medications: - Spironolactone 25 mg - titrate up as tolerated - torsemide 20 mg daily hold while on IV lasix - losartan 12.5 mg daily - Farxiga 5 mg - daily labs cbc, cmp, mg, ph - PT/OT : home with assistant in nursing PRN -SW/CM Hyponatremia 2/2 aggressive IV diuresis Na 135, improving - Non-restrictive sodium diet COPD - Not on Home oxygen , consider home 02 eval - Home inhalers : Dulera and [place]ir[place] - PRN duonebs - Nicotine patch Elevated Troponin in setting of CHF exacerbation (resolved) Delta troponin <1 - Continue to monitor - follow up Serial troponin Risk for delirium Debility - delirium protocol - fall precautions Alcohol abuse Elevated LFT - seizure precautions - monitor LFTs Atrial fibrillation Hasbled: 2 (age and alcohol use) moderate risk for major bleeding - rate controlled - apixaban 5 mg BID - - metoprolol succinate 100mg BID Pulmonary HTN DELORES - autopap therapy CAD - no longer take rosuvastatin Tobacco use - nicotine patch Raynaud phenomenon vs Buerger's - keep extremities warm as needed - advise smoking cessation Moderate malnutrition - encourage PO - technician trainee consulted FEN/GI/DVT IVF: None Electrolytes: Monitor and replace per protocols Diet: General GI PPX: No DVT Prophylaxis: Lovenox Telemetry: Not on Telemetry DISPOSITION: Tolerating IV lasix anticipating discharge between 12-24 hrs NDUM: Patient responded well to diuresis. Medically stable for discharge today. I have personally seen the patient and performed a history and physical exam. I have discussed the patient with the resident and attending. I have reviewed the note and agree with the assessment and plan as documented, with my additions in blue. Gifty Holguin MD Family Medicine, PGY-III 09/16/24 1:41 PM Images from the original note were not included. Speech-Language Pathology SPEECH LANGUAGE PATHOLOGY [facility] Dysphagia Treatment Note Patient Name: Krystina Markham Evaluation Date: 09/15/2024 Date of : 1955 Admission Date: 09/10/2024 1:54 PM Age: 69 y.o. Room[facility]Bed: [facility] B Subjective Patient alert and cooperative. Seen upright sitting edge of bed. Answers all basic questions with clear vocal quality. Follows all basic commands. No visitors at bedside. Pt was finishing his lunch. Current Diet: Dietary Orders (From admission, onward) Start Ordered 09/15/24 1121 Adult diet Easy to Chew Diet effective now Comments: Cardiac diet Question: Diet type Answer: Easy to Chew 09/15/24 1120 09/12/24 1047 Supplement:Lunch, Dinner; Chocolate Ensure Plus Until discontinued Question Answer Comment Frequency Lunch Frequency Dinner Select supplement: Chocolate Ensure Plus 09/12/24 1046 Aspiration Precautions: - Upright positioning for all PO intake - Slow rate of intake Oxygen: Oxygen Therapy: None (Room air) I'd like a hamburger Pain: Pt denies any current pain. PPE Worn: surgical mask, gloves Objective & Assessment Dysphagia Treatment Dysphagia Activity 1: Assess prandial tolerance of po diet. No overt deficits with chicken, broccoli. Pt is able to manage meal without difficulty. He sits edge of bed for all meals. Pt is capable up cutting up his own food. Suggest regular diet. Pt is aware of hard foods he is unable to chew and swallow d/t edentulous status. Plan & Recommendations Plan: Recommend Regular diet with slower rate of intake. Continue acute SALES SUPPORT CONSULTANT therapy per initial plan of care and established goals. D/C Recommendations: No follow up therapy recommended post discharge Education Education Given: diet recommendations Given To: patient Response: verbalizes understanding Goals Patient Stated Goal: To set up my own food. Encounter Problems Encounter Problems (Active) Swallowing Patient will tolerate the least restrictive diet consistency to allow for safe consumption of daily meals Start: 09/14/24 Expected End: 09/21/24 Patient will demonstrate safe swallowing Intervention/techniques Start: 09/14/24 Expected End: 09/14/24 Therapy Time SALES SUPPORT CONSULTANT Individual Minutes Time In: 1235 Time Out: 1245 Minutes: 10 MICKIE Jacome Images from the original note were not included. Medical Teaching Service Progress Note Patient: Krystina Markham : 1955 Acct: [id number] PCP: Pedro Subramanian MD Admitting Physician: Jose M Wiggins MD Admission Date: 09/10/2024 Admitting Diagnosis: Acute on chronic congestive heart failure, unspecified heart failure type (HCC) [I50.9] Unit/Bed: B2254/-254 B Hospital Day: 5 Code Status: Full Code Subjective: Overnight events: No significant overnight events. Patient is tolerating IV lasix. He reports being able to void appropriately. Denies having shortness of breath, chest pain, light headedness or dizziness; even when his BP reported to be low. Objective: Vitals: 09/15/24 0738 09/15/24 0826 09/15/24 0837 09/15/24 0902 BP: 94/52 102/63 BP Location: Left arm Patient Position: Sitting Pulse: 86 91 92 Resp: 16 16 Temp: 36.8 C (98.2 F) TempSrc: Temporal SpO2: 100% (!) 88% 96% Weight: Height: Temp (24hrs), Av.3 C (97.4 F), Min:35.9 C (96.6 F), Max:36.8 C (98.2 F) Intake/Output Summary (Last 24 hours) at 09/15/2024 0928 Last data filed at 09/14/2024 1638 Gross per 24 hour Intake 360 ml Output 300 ml Net 60 ml Physical Exam Constitutional: General: He is not in acute distress. Appearance: Normal appearance. He is not ill-appearing, toxic-appearing or diaphoretic. HENT: Nose: No congestion or rhinorrhea. Cardiovascular: Rate and Rhythm: Normal rate and regular rhythm. Pulses: Normal pulses. Heart sounds: Normal heart sounds. Pulmonary: Effort: Pulmonary effort is normal. No respiratory distress. Breath sounds: Normal breath sounds. No wheezing or rales. Abdominal: General: Abdomen is flat. Bowel sounds are normal. There is distension. Palpations: Abdomen is soft. Tenderness: There is no abdominal tenderness. There is no guarding. Musculoskeletal: General: Swelling (bilateral pitting edema) present. Neurological: General: No focal deficit present. Mental Status: He is alert and oriented to person, place, and time. Motor: No weakness. Gait: Gait normal. Polacno: No Drains: No Central Line/Port: No Intubated: No Diet: Adult diet Easy to Chew; Low Sodium (2 gm) Medications: apixaban, 5 mg, Oral, BID dapagliflozin, 5 mg, Oral, Daily folic acid, 1 mg, Oral, Daily furosemide, 40 mg, IntraVENous, TID ipratropium-albuterol, 3 mL, Nebulization, Q4H while awake losartan, 12.5 mg, Oral, Daily metoprolol succinate XL, 100 mg, Oral, BID mometasone-formoterol, 2 puff, Inhalation, BID nicotine, 1 patch, TransDERmal, Daily rosuvastatin, 40 mg, Oral, Daily sertraline, 100 mg, Oral, Daily spironolactone, 25 mg, Oral, Daily tiotropium, 2 puff, Inhalation, Daily [Held by provider] torsemide, 20 mg, Oral, Once Continuous Infusions: PRN Meds: PRN medications: acetaminophen OR acetaminophen, ondansetron ODT OR ondansetron, polyethylene glycol (PEG) 3350 Labs: CBC: Results from last 7 days Lab Units 09/15/2425609/14/2432409/13/2431209/12/24 0157 WBC AUTO 10*3/uL 7.4 6.9 4.9 6.6 HEMOGLOBIN g/dL 11.9* 11.3* 12.0* 11.7* HEMOGLOBIN BG g/dl -- -- -- 12.8* HEMATOCRIT % 35.6* 33.6* 35.0* 35.2* PLATELETS 10*3/uL 177 143 151 157 NEUTROS PCT AUTO % 74.2 77.6 -- 79.7 LYMPHO PCT MAN % -- -- 4* -- LYMPHS PCT AUTO % 12.1* 9.1* -- 9.1* MONO PCT MAN % -- -- 7 -- MONOS PCT AUTO % 10.5 11.7 -- 8.8 EOS PCT AUTO % 2.0 1.0 -- 1.5 BMP: Results from last 7 days Lab Units 09/15/2425609/14/2432409/13/24 031 SODIUM mmol/L 131* 134* 134* POTASSIUM mmol/L 4.0 3.6 3.9 CHLORIDE mmol/L 95* 96* 97* CO2 mmol/L 27 30 28 BUN mg/dL 18 18 19 CREATININE mg/dL 0.79 0.70* 0.77 GLUCOSE mg/dL 120* 130* 124* CALCIUM mg/dL 8.4* 8.5* 8.8 LIVER PROFILE: Results from last 7 days Lab Units 09/15/2425609/14/2432409/13/24 03109/11/24 0341 09/10/24 1435 ALK PHOS U/L 202* 160* 163* < > 212* BILIRUBIN TOTAL mg/dL 0.6 0.6 0.9 < > 1.0 BILIRUBIN DIRECT mg/dL -- -- -- -- 0.5* PROTEIN TOTAL g/dL 6.7 6.3* 6.7 < > 6.3* ALT U/L 35 30 29 < > 36 AST U/L 57* 47* 48* < > 62* < > = values in this interval not displayed. PT/INR: Results from last 7 days Lab Units 09/12/24 0157 APTT s 32.9* INR 1.2* CARDIAC ENZYMES: Procalcitonin: No results found for: "PROCAL" Glucose: Assessment/Plan: Bilateral pitting edema with extension 2/2 HFrEF exacerbation, Biventricular ICD in place 07/2022 Echo 11/2023 EF 21%, Global hypokinesis, RVSP is 47 mmHg. We will continue aggressive IV lasix as pitting edmea continues to be extensive. Pt's Creatinine is tolerating treatment Pitting edema is starting to resolve BNP 12,525 (3wks) > 9,148 > ( 8,635) - lasix 40 mg IV TID due to excessive pitting edema - Strict I/O : 300 ml - metoprolol succinate 100 mg BID - Medications: - Spironolactone 25 mg - titrate up as tolerated - torsemide 20 mg daily hold while on IV lasix - losartan 12.5 mg daily - Farxiga 5 mg - daily labs cbc, cmp, mg, ph - PT/OT : home with assistant in nursing PRN -SW/CM Hyponatremia 2/2 aggressive IV diuresis - Non-restrictive sodium diet - Consider Na tablets COPD - Not on Home oxygen , consider home 02 eval - Home inhalers : Dulera and [place] - PRN duonebs - Nicotine patch Elevated Troponin in setting of CHF exacerbation (resolved) Delta troponin <1 - Continue to monitor - follow up Serial troponin Risk for delirium Debility - delirium protocol - fall precautions Alcohol abuse Elevated LFT - seizure precautions - monitor LFTs Atrial fibrillation Hasbled: 2 (age and alcohol use) moderate risk for major bleeding - rate controlled - apixaban 5 mg BID - - metoprolol succinate 100mg BID Pulmonary HTN DELORES - autopap therapy CAD - no longer take rosuvastatin Tobacco use - nicotine patch Raynaud phenomenon vs Buerger's - keep extremities warm as needed - advise smoking cessation Moderate malnutrition - encourage PO - technician trainee consulted FEN/GI/DVT IVF: None Electrolytes: Monitor and replace per protocols Diet: Cardiac GI PPX: No DVT Prophylaxis: Lovenox Telemetry: Not on Telemetry DISPOSITION: Continued admission due to resistant pitting edema, pt is improving anticipate dc 24-48 hrs MTS ATTENDING NOTE Case discussed with residents. Agree with findings and plan as documented in resident note. Independent exam done. Chief Complaint Patient presents with Groin Swelling Leg Swelling Fatigue the swelling has been a problem for at least a month Reports ongoing good urin output. Breathing at baseline. Eating well. No N/V. BP 102/63 (BP Location: Left arm, Patient Position: Sitting) Pulse 92 Temp 36.8 C (98.2 F) (Temporal) Resp 16 Ht 5' 9" (1.753 m) Wt 180 lb 3.2 oz (81.7 kg) Comment: standing SpO2 96% BMI 26.61 kg/m Gen: seated, NAD Lungs: CTA bilat Heart: irreg irreg, NS1, S2 Ext: 2+ edema, less tense in thighs Lab Results Component Value Date GLUCOSE 120 (H) 09/15/2024 CALCIUM 8.4 (L) 09/15/2024 NA 131 (L) 09/15/2024 K 4.0 09/15/2024 CO2 27 09/15/2024 CL 95 (L) 09/15/2024 BUN 18 09/15/2024 CREATININE 0.79 09/15/2024 Lab Results Component Value Date WBC 7.4 09/15/2024 HGB 11.9 (L) 09/15/2024 HCT 35.6 (L) 09/15/2024 MCV 92.5 09/15/2024 PLT 177 09/15/2024 A: HFrEF w/acute exacerbation COPD/Chronic Respiratory Failure Anasarca-improving Cirrhosis-stable A Fib Pacemaker/Defib status DELORES Tobacco Use DO Alcohol Abuse-now remission Hx of PE Low Albumin-likely related to malnutrition and #4 Hyponatremia-mild P: Volume overload continues to improve with IV diuresis. I and O's incomplete with lasix dose held x1 due to low BP Continue present care Anticipate discharge in 24-48 hrs if stable on oral diuretic Images from the original note were not included. Medical Teaching Service Overnight Summary [facility] PCU [address] [facility] [address] Dept: [phone] Loc: [phone] Patient: Krystina Markham : 1955 Acct: [id number] PCP: Pedro Subramanian MD Admitting Physician: Jose M Wiggins MD Admission Date: 09/10/2024 Admitting Diagnosis: Acute on chronic congestive heart failure, unspecified heart failure type (HCC) [I50.9] Unit[facility]Bed: [facility] Hospital Day: 5 Code Status: Full Code Pt was monitored throughout the night with bedside rounding. Patient had no concerns, breathing was unchanged. He is on Lasix 40 IV TID, held the dose last night due to low BP, but continued metoprolol. Acute events addressed overnight: None Visit Vitals BP 105/61 (BP Location: Left arm) Pulse 74 Temp 36.3 C (97.3 F) (Temporal) Resp 18 Ht 5' 9" (1.753 m) Wt 189 lb 5 oz (85.9 kg) SpO2 96% BMI 27.96 kg/m Smoking Status Former BSA 2.05 m Issues requiring daytime follow-up: Lasix this AM. Any notable events can be found as significant event notes if needed. Pt handoff was made to day-team with pertinent information for pt's case and care. Electronically signed by Mayda Shankar M.D. Family Medicine, PGY-II 5:59 AM 09/15/24 Images from the original note were not included. PHYSICAL THERAPY [facility] Treatment Note Name/MRN: Krystina Markham ([id number]) Date of : 1955 Age: 69 y.o. Room[facility]Bed: [facility] Visit #: 2 out of 4 visits Discharge Recommendation: Home with assist PRN Equipment Needed: No Prior Level of Function Prior Level of ADL Function: Independent Prior Level of Mobility: Independent; Device: None Prior Level of Transfers: Independent Assessment Pt demonstrates continued progress with acute PT and has met his acute PT goals. Pt is mod I for bed mobility, transfers to no device, ambulation with no device for community distances and 5 steps with hand rail and no LOB or instability. Pts SpO2 remains 90% or greater throughout session with exertion. Pt with no further acute PT goals at this time. Recommend return home with assist PRN. Subjective Patient pleasant and agreeable to therapy session this date. Per RN patient okay for therapy. Observation: room air Vitals SpO2 >90% throughout session Pain: Pt denies any current pain. Medical Precautions: No active isolations Proper PPE donned/doffed in accordance with facility standards. Fall Risk: Landin Fall Risk Score: 60 (High Risk) Precautions/Restrictions: N/A Overall Cognitive Status: WFL Overall Orientation Status: Oriented x4 Family/Caregiver Present: none Objective Bed Mobility Supine to sit: Modified Independent Sit to supine: Modified Independent Scooting: Modified Independent Denies dizziness with positional changes. Transfers/Mobility Sit to stand: Modified Independent, to no device from EOB and commode Stand to sit: Modified Independent Denies dizziness on initial stance. No true LOB or instability. Use of hands for ascent and descent. Device(s) used: None Ambulation Ambulation 1 Assistive device(s) used: None Assist level: Modified Independent Distance (ft): 200 ft x 1, 150 ft x 1, 40 ft x 2 Quality of gait: No LOB, reciprocal stepping, B foot clearance, equal step length, wide SWAPNA, slow luiza Pt demonstrates stable gait with no device. Gait training completed in order to progress patients functional strength, activity tolerance, dynamic balance and safety with mobility. Pt tolerates >5 minutes of exertion and standing at this time with SpO2 >90%. Stairs Stairs 1 Assistive device(s) used: None Assist level: Modified Independent # of steps: 5 Rails: right Additional factors: reciprocal going up, reciprocal going down Pt demonstrates stable technique on steps with no SOB noted. SpO2 >90%. Plan Continue acute PT per plan of care. Safety/Education Safety Safety Devices in place: All fall risk precautions in place, call light within reach, left in bed, gait belt, patient at risk for falls, nurse notified, and no alarms engaged upon entry Restraints: N/A Education Education Given To: patient Education Provided: PT Role, PT Goals, Gait Training, Plan of Care, Energy Conservation, Fall Prevention Education, Discharge Recommendations, and Benefits of Increasing Activity Education Method: Verbal, Demonstration, and Teach Back Barriers to Learning: None Education Outcome: Verbalized Understanding and Demonstrated Understanding Outcome Measures AM-PAC AM-PAC Inpatient Mobility Raw Score : 24 AM-PAC Inpatient Mobility Raw Score (No Stairs) : 20 Goals Patient Stated Goal: Patient states he wants to get home soon. Encounter Problems Encounter Problems (Resolved) Balance Patient will maintain dynamic standing balance for 5 minutes with modified independence in order to demonstrate decreased risk of falling. (Completed) Start: 09/11/24 Expected End: 09/18/24 Resolved: 09/14/24 Mobility Patient will ambulate 200 feet with modified independence and least restrictive device in order to improve safety and independence with mobility while maintaining SpO2 >90%. (Completed) Start: 09/11/24 Expected End: 09/18/24 Resolved: 09/14/24 Patient will ascend and descend 1 stairs with least restrictive device and modified independence in order to safely negotiate home. (Completed) Start: 09/11/24 Expected End: 09/18/24 Resolved: 09/14/24 Therapy Time Individual Co-treatment Time In 1430 Time Out 1447 Minutes 17 Timed Code Treatment Minutes: 12 Minutes (gait x 1) Nia Eubanks PT Images from the original note were not included. Speech-Language Pathology SPEECH LANGUAGE PATHOLOGY [facility] Bedside Swallow Evaluation Patient Name: Krystina Markham Evaluation Date: 09/14/2024 Date of : 1955 Admission Date: 09/10/2024 1:54 PM Age: 69 y.o. Room/Bed: B2254/[facility]254 B IMPRESSION: S/s oropharyngeal dysphagia. No overt clinical s/s pulmonary compromise with PO. Risk factors for aspiration include edentulous, confusion, fatigue. RECOMMENDATION: Recommend Easy to chew solids (vs. Regular) and Thin liquids and meds as tolerated and the following precautions: - Upright positioning for all PO intake - Slow rate of intake Dysphagia NOMS: Level 6: Swallowing is safe, and individual eats and drinks independently and requires no more than minimal cueing. Individual usually self-cues when difficulty occurs. May need to avoid specific food items (e.g., popcorn) or require additional time (due to difficulty with mastication). Pt would benefit from skilled acute SALES SUPPORT CONSULTANT services to address further prandial assessment of recommended diet, advanced diet trials as appropriate. Frequency: 3 days/wk for 2 weeks Barriers: Confusion; intermittent Prognosis: good D/C Recommendations: to be determined Subjective Patient alert and cooperative. Seen upright in bed. Answers all basic questions with clear vocal quality. Follows all basic commands. No visitors at bedside. Spoke with NGHIA Cordoba who cleared pt to be evaluated. Dysphagia History: No history of SALES SUPPORT CONSULTANT services in EMR with retrospective chart review Baseline Diet: Regular diet with thin liquids Current Diet: Dietary Orders (From admission, onward) Start Ordered 09/12/24 1048 Adult diet Easy to Chew; Low Sodium (2 gm) Diet effective now Comments: Cardiac diet Question Answer Comment Diet type Easy to Chew Sodium restriction: Low Sodium (2 gm) 09/12/24 1047 09/12/24 1047 Supplement:Lunch, Dinner; Chocolate Ensure Plus Until discontinued Question Answer Comment Frequency Lunch Frequency Dinner Select supplement: Chocolate Ensure Plus 09/12/24 1046 Tube Feeding: no Tracheostomy: no Recent Chest Xray/CT of Chest: XR chest 1 view 09/10/2024 Impression CHF with interstitial edema and pleural effusions. Report Dictated on Electronically Signed By: Shaun Wilson MD Electronically Signed Date/Time: 09/10/2024 3:03 PM EST Oxygen: Oxygen Therapy: None (Room air) Past Medical History: Past Medical History: Diagnosis Date Alcohol consumption heavy 09/10/2015 stopped 3w ago Asthma Atrial fibrillation (HCC) CHF (congestive heart failure) (HCC) 01/31/2016 COPD (chronic obstructive pulmonary disease) (HCC) 09/10/2015 Cor, pulmonale, acute (CMS/HCC) (HCC) Deep venous thrombosis (HCC) 02/2016 Depression Hx of blood clots Obesity 09/10/2015 DELORES (obstructive sleep apnea) Pulmonary embolus ([facility]) 6 16 Raynaud phenomenon 09/10/2015 Smoker 09/10/2015 Past Surgical History: Past Surgical History: Procedure Laterality Date ABDOMINAL SURGERY BRONCHOSCOPY 02/25/2020 BRONCHOSCOPY (HISTORICAL) 02/25/2020 COLONOSCOPY 10/27/[address] CHEST ANGIOGRAM W AND/OR WO IV CONTRAST 07/12/2022 CT CHEST ANGIOGRAM W AND/OR WO IV CONTRAST 07/12/2022 [facility] CT IMAGING FINGER AMPUTATION Left HERNIA REPAIR NOSE SURGERY PACEMAKER (HISTORICAL) Admission Diagnosis: Patient Active Problem List Diagnosis Date Noted Moderate malnutrition (CMS/HCC) ([facility]) 09/12/2024 Acute on chronic congestive heart failure, unspecified heart failure type ([facility]) 09/10/2024 Financial difficulties 08/20/2024 Pulmonary HTN ([facility]) 08/19/2024 DELORES on CPAP 04/15/2024 Heavy tobacco smoker 04/15/2024 Cigarette smoker 04/15/2024 Personal history of smoking 04/15/2024 Paroxysmal atrial fibrillation ([facility]) 03/03/2024 Cervical spondylosis 03/02/2024 Non-pressure chronic ulcer of other part of right foot with unspecified severity (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) 02/17/2024 Alcohol abuse with withdrawal, uncomplicated ([facility]) 02/17/2024 Right arm numbness 02/13/2024 Persistent depressive disorder 02/13/2024 DELORES (obstructive sleep apnea) 02/13/2024 Poor compliance with medication 02/13/2024 On continuous oral anticoagulation 11/21/2023 Acute exacerbation of CHF (congestive heart failure) ([facility]) 11/12/2023 Medical non-compliance 11/12/2023 Anemia in other chronic diseases classified elsewhere 01/01/2023 Closed fracture of neck of left humerus with routine healing 12/31/2022 Hyponatremia 12/29/2022 COPD exacerbation ([facility]) 09/13/2022 Alcohol abuse, continuous 07/28/2022 Presence of implantable cardioverter-defibrillator (ICD) 07/19/2022 Chest pain, unspecified type 07/17/2022 Hypochloremia 07/17/2022 Tobacco abuse 07/17/2022 HFrEF (heart failure with reduced ejection fraction) ([facility]) 07/17/2022 Permanent atrial fibrillation ([facility]) 08/25/2021 History of rib fracture 08/25/2021 Chronic hyponatremia 08/25/2021 Essential hypertension 08/25/2021 COPD (chronic obstructive pulmonary disease) (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) 04/10/2017 Cor, pulmonale, acute (CMS/HCC) ([facility]) 02/01/2016 Raynaud phenomenon 09/10/2015 History of Present Illness: 69 y.o. male Patient was brought in to the ED due to shortness of breath at rest and exertion. He has leg swelling which has bene occurring for a month. He has a dry cough and a PMH of CHF , COPD and on oxygen. On past visits per ED notes, swelling occurs from the legs into the groin and abdomen. He is a poor historian and his ex- was not present. Patient Complaint: Pt without any complaints. Reported deficits with voice changes. Pain: Pt denies any current pain. PPE Worn: surgical mask, gloves Objective Bedside swallow eval completed. Oral Motor Mechanism Facial Movement (CN VII) - WFL Labial Structure/Function (CN VII) - WFL Velopharyngeal Structure/Function (CN X & XI) - Elevation with phonation Secretion Management - WFL Volitional Swallow - Present Dentition - Edentulous Swallowing Examination PO Trials - thin liquid, (straw, self administered) - puree, (self administered) - easy to chew solids Oral Phase Patient presents with adequate oral receipt of each bolus. There is no anterior bolus loss. There is appropriate bolus containment for each tested texture in the oral cavity. Mastication appeared complete, slightly increased mastication time, functional clearing. Oral transit time appears WFL. There is no oral residue. Pharyngeal Phase Hyolaryngeal excursion clinically appears adequate and timely per palpation. 1-2 swallows palpated per bolus, likely indicative of adequate pharyngeal clearance. No overt clinical s/s airway penetration as evidenced by no cough, no throat clear, and no change in vocal quality. Education Education Given: swallowing strategies, diet recommendations Given To: patient Response: demonstrated understanding Goals Patient Stated Goal: To go home. Encounter Problems Encounter Problems (Active) Swallowing Patient will tolerate the least restrictive diet consistency to allow for safe consumption of daily meals Start: 09/14/24 Expected End: 09/21/24 Patient will demonstrate safe swallowing Intervention/techniques Start: 09/14/24 Expected End: 09/14/24 Therapy Time SALES SUPPORT CONSULTANT Individual Minutes Time In: 1235 Time Out: 1245 Minutes: 10 MICKIE Jacome MTS ATTENDING NOTE Case discussed with residents. Agree with findings and plan as documented in resident note. Independent exam done. Chief Complaint Patient presents with Groin Swelling Leg Swelling Fatigue the swelling has been a problem for at least a month SOB is improved. Still with significant edema. Reports frequent urination. No abdominal pain. BP 104/64 Pulse 85 Temp 36.3 C (97.4 F) Resp 16 Ht 5' 9" (1.753 m) Wt 189 lb 5 oz (85.9 kg) SpO2 96% BMI 27.96 kg/m Gen: seated at bedside, NAD Lungs: CTA bilat Heart: irreg irreg, NS1, S2 Ext: 3+ edema, less thigh edema less pre sacral edema Lab Results Component Value Date WBC 6.9 09/14/2024 HGB 11.3 (L) 09/14/2024 HCT 33.6 (L) 09/14/2024 MCV 92.1 09/14/2024 PLT 143 09/14/2024 Lab Results Component Value Date GLUCOSE 130 (H) 09/14/2024 CALCIUM 8.5 (L) 09/14/2024 NA 134 (L) 09/14/2024 K 3.6 09/14/2024 CO2 30 09/14/2024 CL 96 (L) 09/14/2024 BUN 18 09/14/2024 CREATININE 0.70 (L) 09/14/2024 Lab Results Component Value Date ALT 30 09/14/2024 AST 47 (H) 09/14/2024 GGT 98 (H) 08/20/2024 ALKPHOS 160 (H) 09/14/2024 BILITOT 0.6 09/14/2024 VBG (09/11): 7.47/41/36 ABDO US: No ascites A: HFrEF w/acute exacerbation COPD/Chronic Respiratory Failure Anasarca Cirrhosis-stable A Fib Pacemaker/Defib status DELORES Tobacco Use DO Alcohol Abuse-now remission Hx of PE Low Albumin-likely related to malnutrition and #4 P: Continue present care. Still with significant volume overload Record output Nutritional supplements, follow Home meds as indicated Images from the original note were not included. Medical Teaching Service Progress Note Patient: Krystina Markham : 1955 Acct: [id number] PCP: Pedro Subramanian MD Admitting Physician: Jose M Wiggins MD Admission Date: 09/10/2024 Admitting Diagnosis: Acute on chronic congestive heart failure, unspecified heart failure type (HCC) [I50.9] [facility] Hospital Day: 4 Code Status: Full Code Subjective: Overnight events: No significant overnight events. Patient reports improving dyspnea from admission. He is able to ambulate well up to 200 ft and able to ascended and descended 4 steps with rail. He denies being light headed, chest pain, chest tightness, cough, nausea or vomiting. He reports that he is able to void appropriately. Objective: Vitals: 09/14/24 0319 09/14/24 0616 09/14/24 0639 09/14/24 0910 BP: 97/54 111/61 104/64 BP Location: Left arm Patient Position: Lying Pulse: 74 78 83 Resp: 20 16 Temp: 36.3 C (97.4 F) 36.3 C (97.4 F) TempSrc: Temporal SpO2: 91% 96% Weight: 189 lb 5 oz (85.9 kg) Height: Temp (24hrs), Av.4 C (97.6 F), Min:36.3 C (97.4 F), Max:36.6 C (97.9 F) Intake/Output Summary (Last 24 hours) at 09/14/2024 0929 Last data filed at 09/14/2024 0912 Gross per 24 hour Intake 1110 ml Output 2 ml Net 1108 ml Physical Exam Constitutional: Appearance: Normal appearance. HENT: Head: Normocephalic and atraumatic. Nose: No congestion or rhinorrhea. Cardiovascular: Rate and Rhythm: Normal rate and regular rhythm. Pulses: Normal pulses. Heart sounds: Normal heart sounds. No murmur heard. Pulmonary: Effort: Pulmonary effort is normal. No respiratory distress. Breath sounds: Normal breath sounds. No wheezing (mild). Abdominal: General: Abdomen is flat. Bowel sounds are normal. There is distension (not soft). Tenderness: There is no abdominal tenderness. Neurological: Mental Status: He is alert. Polanco: No Drains: No Central Line/Port: No Intubated: No Diet: Adult diet Easy to Chew; Low Sodium (2 gm) Medications: apixaban, 5 mg, Oral, BID dapagliflozin, 5 mg, Oral, Daily folic acid, 1 mg, Oral, Daily furosemide, 40 mg, IntraVENous, TID ipratropium-albuterol, 3 mL, Nebulization, Q4H while awake losartan, 12.5 mg, Oral, Daily metoprolol succinate XL, 100 mg, Oral, BID mometasone-formoterol, 2 puff, Inhalation, BID nicotine, 1 patch, TransDERmal, Daily rosuvastatin, 40 mg, Oral, Daily sertraline, 100 mg, Oral, Daily spironolactone, 25 mg, Oral, Daily tiotropium, 2 puff, Inhalation, Daily [Held by provider] torsemide, 20 mg, Oral, Once Continuous Infusions: PRN Meds: PRN medications: acetaminophen OR acetaminophen, ondansetron ODT OR ondansetron, polyethylene glycol (PEG) 3350 Labs: CBC: Results from last 7 days Lab Units 09/14/24 0325 09/13/24 0313 09/12/24 0157 09/11/24 0341 09/10/24 1435 WBC AUTO 10*3/uL 6.9 4.9 6.6 < > 5.2 HEMOGLOBIN g/dL 11.3* 12.0* 11.7* < > 11.6* HEMOGLOBIN BG g/dl -- -- 12.8* -- 12.9* HEMATOCRIT % 33.6* 35.0* 35.2* < > 35.4* PLATELETS 10*3/uL 143 151 157 < > 162 NEUTROS PCT AUTO % 77.6 -- 79.7 -- 70.6 LYMPHO PCT MAN % -- 4* -- < > -- LYMPHS PCT AUTO % 9.1* -- 9.1* -- 13.6* MONO PCT MAN % -- 7 -- < > -- MONOS PCT AUTO % 11.7 -- 8.8 -- 9.4 EOS PCT AUTO % 1.0 -- 1.5 -- 5.2 < > = values in this interval not displayed. BMP: Results from last 7 days Lab Units 09/14/24 0325 09/13/24 0313 09/12/24 0157 SODIUM mmol/L 134* 134* 132* POTASSIUM mmol/L 3.6 3.9 4.3 CHLORIDE mmol/L 96* 97* 100 CO2 mmol/L 30 28 24 BUN mg/dL 18 19 14 CREATININE mg/dL 0.70* 0.77 0.71* GLUCOSE mg/dL 130* 124* 120* CALCIUM mg/dL 8.5* 8.8 7.8* LIVER PROFILE: Results from last 7 days Lab Units 09/14/24 0325 09/13/24 0313 09/12/24 0157 09/11/24 0341 09/10/24 1435 ALK PHOS U/L 160* 163* 160* < > 212* BILIRUBIN TOTAL mg/dL 0.6 0.9 0.8 < > 1.0 BILIRUBIN DIRECT mg/dL -- -- -- -- 0.5* PROTEIN TOTAL g/dL 6.3* 6.7 6.6 < > 6.3* ALT U/L 30 29 33 < > 36 AST U/L 47* 48* 77* < > 62* < > = values in this interval not displayed. PT/INR: Results from last 7 days Lab Units 09/12/24 015 APTT s 32.9* INR 1.2* CARDIAC ENZYMES: Procalcitonin: No results found for: "PROCAL" Glucose: Assessment/Plan: Bilateral pitting edema with extension 2/2 HFrEF exacerbation, Biventricular ICD in place 07/2022 Echo 11/2023 EF 21%, Global hypokinesis, RVSP is 47 mmHg. We will continue aggressive IV lasix as pitting edmea continues to be extensive. Pt's Creatinine is tolerating treatment Optimize current treatment, switch to continuous infusion. Next, combination therapy. BNP 12,525 (3wks) > 9,148 > ( 8,635) - - lasix 40 mg IV TID due to excessive pitting edema - Consider consulting Cardiology for IV lasix drip vs IV lasix QID (continuous infusion) -- Strict I/O - metoprolol succinate 100 mg BID - Medications: - Spironolactone 25 mg - titrate up as tolerated - torsemide 20 mg daily hold while on IV lasix - losartan 12.5 mg daily - Farxiga 5 mg - daily labs cbc, cmp, mg, ph - - PT/OT : home with assistant in nursing PRN -SW/CM COPD - Not on Home oxygen , consider home 02 eval - Home inhalers : Dulera and [place] - PRN duonebs - Nicotine patch Elevated Troponin in setting of CHF exacerbation (resolved) Delta troponin <1 - Continue to monitor - follow up Serial troponin Risk for delirium Debility - delirium protocol - fall precautions Alcohol abuse Elevated LFT - seizure precautions - monitor LFTs Atrial fibrillation Hasbled: 2 (age and alcohol use) moderate risk for major bleeding - rate controlled - apixaban 5 mg BID - - metoprolol succinate 100mg BID Pulmonary HTN DELORES - autopap therapy CAD - no longer take rosuvastatin Tobacco use - nicotine patch Raynaud phenomenon vs Buerger's - keep extremities warm as needed - advise smoking cessation Moderate malnutrition - encourage PO - technician trainee consulted FEN/GI/DVT IVF: None Electrolytes: Monitor and replace per protocols Diet: Cardiac GI PPX: No DVT Prophylaxis: Lovenox Telemetry: Not on Telemetry DISPOSITION: Continued admission due to resistant pitting edema. NDUM: Continue with IV diuresis. Track Laminating Machine Tender consulted for nutritional supplement recommendations I have personally seen the patient and performed a history and physical exam. I have discussed the patient with the resident and attending. I have reviewed the note and agree with the assessment and plan as documented, with my additions in blue. Gifty Holguin MD Family Medicine, PGY-III 09/14/24 11:28 AM Images from the original note were not included. PHYSICAL THERAPY [facility] Treatment Note Name/MRN: Krystina Markham ([id number]) Date of : 1955 Age: 69 y.o. Room/Bed: [facility]254/[facility] B Visit #: 1 out of 4 visits Discharge Recommendation: Home with Home health PT Equipment Needed: No Prior Level of Function Prior Level of ADL Function: Independent Prior Level of Mobility: Independent; Device: None Prior Level of Transfers: Independent Assessment Patient progressing towards goals with increasing function . Bed mobility supine -sit with mod I ,transfers sit-stand with mod I ,ambulated with no device 200 ft with supervision and ascended/descended 4 steps with rail with SBA thus recommend [facility] PT for D.C Subjective Willing to participate in PT Pain: Pt denies any current pain. Medical Precautions: No active isolations Proper PPE donned/doffed in accordance with facility standards. Fall Risk: Landin Fall Risk Score: 70 (High Risk) Precautions/Restrictions: N/A Overall Cognitive Status: WFL Overall Orientation Status: Oriented x4 Family/Caregiver Present: none Objective Bed Mobility Supine to sit: Modified Independent Sit to supine: Modified Independent Transfers/Mobility Sit to stand: Modified Independent Stand to sit: Modified Independent Device(s) used: None Ambulation Ambulation 1 Assistive device(s) used: None Assist level: Supervision Distance (ft): 200 FT Quality of gait: No LOB, reciprocal stepping, equal step length Balance During Session: Posture: good Sitting - Static: Independent Sitting - Dynamic: Independent Standing - Static: Modified Independent Standing - Dynamic: Modified Independent Stairs Stairs 1 Assistive device(s) used: None Assist level: SBA # of steps: 4 Rails: right Additional factors: reciprocal going up, reciprocal going down Plan Continue acute PT per plan of care. Safety/Education Safety Safety Devices in place: call light within reach, left in bed, gait belt, patient at risk for falls, and no alarms engaged upon entry Restraints: No Education Education Given To: patient Education Provided: PT Role, PT Goals, Gait Training, Plan of Care, Transfer Training, and Discharge Recommendations Education Method: Verbal and Demonstration Barriers to Learning: None Education Outcome: Continued Education Needed Outcome Measures AM-PAC AM-PAC Inpatient Mobility Raw Score (No Stairs) : 19 Goals Patient Stated Goal: Patient states he wants to get home soon. Encounter Problems Encounter Problems (Active) Balance Patient will maintain dynamic standing balance for 5 minutes with modified independence in order to demonstrate decreased risk of falling. (Progressing) Start: 09/11/24 Expected End: 09/18/24 Mobility Patient will ambulate 200 feet with modified independence and least restrictive device in order to improve safety and independence with mobility while maintaining SpO2 >90%. (Progressing) Start: 09/11/24 Expected End: 09/18/24 Patient will ascend and descend 1 stairs with least restrictive device and modified independence in order to safely negotiate home. (Progressing) Start: 09/11/24 Expected End: 09/18/24 Therapy Time Individual Co-treatment Time In 1140 Time Out 1205 Minutes 25 Timed Code Treatment Minutes: 24 Minutes (gait and therex) Reese Pike PT Case discussed with residents, documentation reviewed, diagnostic studies reviewed, patient independently interviewed and examined. Chief Complaint Patient presents with Groin Swelling Leg Swelling Fatigue the swelling has been a problem for at least a month I have reviewed and agree with Dr. Winter's note except to the extent otherwise documented below. Dyspnea is improved. Ambulating without difficulty. Temp (24hrs), Av.7 C (98.1 F), Min:35.8 C (96.5 F), Max:37.5 C (99.5 F) BP 125/80 Pulse 87 Temp 36.6 C (97.9 F) (Temporal) Resp 16 Ht 5' 9" (1.753 m) Wt 202 lb 12.8 oz (92 kg) SpO2 92% BMI 29.95 kg/m Alert and cooperative, NAD RRR Lungs with scattered rhonchi Abd soft, distended, ? Shifting dullness Extr - 3+ pitting edema Lab Results Component Value Date WBC 4.9 09/13/2024 HGB 12.0 (L) 09/13/2024 HCT 35.0 (L) 09/13/2024 MCV 92.3 09/13/2024 PLT 151 09/13/2024 HFrEF exacerbation - Continue aggressive diuresis with furosemide. Continue GDMT. Trend BNP. COPD - continue nebs. Maintaining appropriate sats on room air. On LAMA/LABA/ICS therapy. Afib - rate adequately controlled. Continue apixaban. DELORES - nocturnal pap Cirrhosis - Continue aggressive diuresis with furosemide. Also on spironolactone for GDMT of HF. Check abd US to assess for ascites Hx alcohol abuse, now in remission. Tobacco abuse - encourage cessation. Lab Results Component Value Date NA 134 (L) 09/13/2024 K 3.9 09/13/2024 CL 97 (L) 09/13/2024 CO2 28 09/13/2024 BUN 19 09/13/2024 CREATININE 0.77 09/13/2024 GLUCOSE 124 (H) 09/13/2024 CALCIUM 8.8 09/13/2024 Summary of singh issues: See resident's note for additional details. Images from the original note were not included. Medical Teaching Service Progress Note Patient: Krystina Markham : 1955 Acct: [id number] PCP: Pedro Subramanian MD Admitting Physician: Jose M Wiggins MD Admission Date: 09/10/2024 Admitting Diagnosis: Acute on chronic congestive heart failure, unspecified heart failure type (HCC) [I50.9] Unit/Bed: [facility]254/[facility] B Hospital Day: 3 Code Status: Full Code Subjective: Overnight events: No significant overnight events. Patient seen this morning sitting up in bed without clothing, states he is feeling cold, Provided him with blanket. Not compliant with answering questions this morning, Patient did refuse PAP therapy overnight. Objective: Vitals: 09/12/24 1628 09/12/24 1933 09/12/24 2316 09/13/24 0305 BP: 93/55 98/52 98/60 BP Location: Left arm Right arm Left arm Patient Position: Lying Lying Sitting Pulse: 81 99 74 52 Resp: 16 Temp: 36.7 C (98 F) 36.4 C (97.6 F) (!) 35.8 C (96.5 F) TempSrc: Temporal Temporal Temporal SpO2: 92% 95% (!) 88% 94% Weight: Height: Temp (24hrs), Av.8 C (98.2 F), Min:35.8 C (96.5 F), Max:37.5 C (99.5 F) Intake/Output Summary (Last 24 hours) at 09/13/2024 0628 Last data filed at 09/12/2024 1700 Gross per 24 hour Intake 720 ml Output -- Net 720 ml Physical Exam Constitutional: Appearance: Normal appearance. HENT: Nose: No congestion or rhinorrhea. Cardiovascular: Rate and Rhythm: Normal rate and regular rhythm. Pulses: Normal pulses. Heart sounds: Normal heart sounds. Pulmonary: Effort: Pulmonary effort is normal. No respiratory distress. Breath sounds: Wheezing present. No rales. Abdominal: General: Abdomen is flat. Bowel sounds are normal. There is distension (fluid vs other). Palpations: Abdomen is soft. Musculoskeletal: General: Swelling present. Right lower leg: Edema present. Left lower leg: Edema present. Skin: Findings: Bruising (ecchymosis right chest wall) present. Neurological: Mental Status: He is alert. Polanco: No Drains: No Central Line/Port: No Intubated: No Diet: Adult diet Easy to Chew; Low Sodium (2 gm) Medications: apixaban, 5 mg, Oral, BID dapagliflozin, 5 mg, Oral, Daily folic acid, 1 mg, Oral, Daily furosemide, 40 mg, IntraVENous, TID ipratropium-albuterol, 3 mL, Nebulization, Q4H while awake losartan, 12.5 mg, Oral, Daily metoprolol succinate XL, 100 mg, Oral, BID mometasone-formoterol, 2 puff, Inhalation, BID nicotine, 1 patch, TransDERmal, Daily rosuvastatin, 40 mg, Oral, Daily sertraline, 100 mg, Oral, Daily spironolactone, 25 mg, Oral, Daily tiotropium, 2 puff, Inhalation, Daily [Held by provider] torsemide, 20 mg, Oral, Once Continuous Infusions: PRN Meds: PRN medications: acetaminophen OR acetaminophen, ondansetron ODT OR ondansetron, polyethylene glycol (PEG) 3350 Labs: CBC: Results from last 7 days Lab Units 09/13/2431209/12/2415609/11/2434009/10/24 1435 WBC AUTO 10*3/uL 4.9 6.6 3.8 5.2 HEMOGLOBIN g/dL 12.0* 11.7* 11.5* 11.6* HEMOGLOBIN BG g/dl -- 12.8* -- 12.9* HEMATOCRIT % 35.0* 35.2* 34.4* 35.4* PLATELETS 10*3/uL 151 157 140 162 NEUTROS PCT AUTO % -- 79.7 -- 70.6 LYMPHO PCT MAN % 4* -- 2* -- LYMPHS PCT AUTO % -- 9.1* -- 13.6* MONO PCT MAN % 7 -- 0* -- MONOS PCT AUTO % -- 8.8 -- 9.4 EOS PCT AUTO % -- 1.5 -- 5.2 BMP: Results from last 7 days Lab Units 09/13/2431209/12/2415609/11/24 0341 SODIUM mmol/L 134* 132* 135* POTASSIUM mmol/L 3.9 4.3 4.0 CHLORIDE mmol/L 97* 100 98 CO2 mmol/L 28 24 28 BUN mg/dL 19 14 13 CREATININE mg/dL 0.77 0.71* 0.73 GLUCOSE mg/dL 124* 120* 183* CALCIUM mg/dL 8.8 7.8* 8.7* LIVER PROFILE: Results from last 7 days Lab Units 09/13/2431209/12/2415609/11/2434009/10/24 1435 ALK PHOS U/L 163* 160* 186* 212* BILIRUBIN TOTAL mg/dL 0.9 0.8 0.9 1.0 BILIRUBIN DIRECT mg/dL -- -- -- 0.5* PROTEIN TOTAL g/dL 6.7 6.6 6.4 6.3* ALT U/L 29 33 34 36 AST U/L 48* 77* 55* 62* PT/INR: Results from last 7 days Lab Units 09/12/24156 APTT s 32.9* INR 1.2* CARDIAC ENZYMES: Procalcitonin: No results found for: "PROCAL" Glucose: ASSESSMENT/PLAN: Dyspnea with Bilateral pitting edema with dyspnea 2/2 HFrEF exacerbation, Biventricular ICD in place 07/2022 Echo 11/2023 EF 21%, Global hypokinesis, RVSP is 47 mmHg. We will continue aggressive IV lasix as pitting edmea continues to be extensive. Pt's Creatinine is tolerating treatment - lasix 40 mg IV TID due to excessive pitting edema - metoprolol succinate 100 mg BID - Medications: - Spironolactone 25 mg - titrate up as tolerated - torsemide 20 mg daily hold while on IV lasix - losartan 12.5 mg daily - Farxiga 5 mg - Daily labs cbc, cmp, mg, phos -Strict I/O's - Daily weights - PT/OT : home with assistant in nursing PRN -SW/CM COPD Not on Home oxygen , consider home 02 eval - Home inhalers : Dulera and [place]irvia - PRN duonebs - Supplemental O2 to keep sats 88-92% Atrial fibrillation Hasbled: 2 (age and alcohol use) moderate risk for major bleeding, Rate controlled - Continue Apixaban 5 mg BID - Metoprolol succinate 100mg BID DELORES - Continue noctural PAP Cirrhosis - Continue Diuresis with lasix - Continue Spironolactone 25 mg - F/U abdomen US Alcohol abuse Elevated LFT - seizure precautions - monitor LFTs Risk for delirium Debility - delirium protocol - fall precautions CAD - no longer take rosuvastatin Tobacco use - Nicotine patch Raynaud phenomenon vs Buerger's - keep extremities warm as needed - advise smoking cessation hx of non-compliance with medical care and poor outpatient follow up. Elevated Troponin in setting of CHF exacerbation (resolved) Delta troponin <1 - Continue to monitor - follow up Serial troponin FEN/GI/DVT IVF: None Electrolytes: Monitor and replace per protocols Diet: Cardiac GI PPX: Yes :Other (please state reason) DVT Prophylaxis: No prophylaxis/Already on anticoagulation: Eliquis Telemetry: Not on Telemetry DISPOSITION: Continue to monitor patient's fluid status, aggressive diuresis. Follow up of abdominal ultrasound. JESSICA WINTER MD PGY-II Chip Washer [facility] 09/13/24 6:28 AM Images from the original note were not included. Medical Teaching Service Overnight Summary [facility] PCU [address] [facility] [address] Dept: [phone] Loc: [phone] Patient: Krystina Markham : 1955 Acct: [id number] PCP: Pedro Subramanian MD Admitting Physician: Jose M Wiggins MD Admission Date: 09/10/2024 Admitting Diagnosis: Acute on chronic congestive heart failure, unspecified heart failure type (HCC) [I50.9] Unit/Bed: B2-254/B2254 B Hospital Day: 3 Code Status: Full Code Pt was monitored throughout the night with bedside rounding. Acute events addressed overnight: None Visit Vitals BP 98/60 (BP Location: Left arm, Patient Position: Sitting) Pulse 52 Temp (!) 35.8 C (96.5 F) (Temporal) Resp 16 Ht 5' 9" (1.753 m) Wt 202 lb 12.8 oz (92 kg) SpO2 94% BMI 29.95 kg/m Smoking Status Former BSA 2.12 m Issues requiring daytime follow-up: Patient seen late in the evening was sitting up in bed without close on. Patient was sitting up and having dinner, states that he did have 2 meals today and is trying to drink more water. Patient sodium levels have dropped therefore and salt tablets were added. Abdomen does seem distended concern for possible fluid retention, ordered abdominal ultrasound and will continue to follow. Any notable events can be found as significant event notes if needed. Pt handoff was made to day-team with pertinent information for pt's case and care. Electronically signed by JESSICA WINTER MD PGY-II Chip Washer [facility] 09/13/24 5:23 AM [facility] Respiratory Care Department Progress Note Comment or reasoning for refusal: Patient was seen in attempts to fulfill CPAP/BiPAP/AutoPAP order. Patient refused PAP therapy/study at this time. Patient was educated on medical need and reasoning for physician order to ensure patient was making an informed medical decision. All of the patient's questions were answered at this time and patient was informed that if the patient changes their mind regarding wearing PAP to hit their "call light" or inform their nurse to contact Respiratory. A second, consecutive night of refusing PAP therapy/study results in order completion in the EMR. If future CPAP/BiPAP/AutoPAP therapy or study is indicated please place another order in the EMR and the assigned Respiratory Therapist will reattempt to fulfill orders. Reason for refusal: See previous refusal note Thank you for involving Respiratory in the care of this patient, Images from the original note were not included. Medical Teaching Service Progress Note Patient: Krystina Markham : 1955 Acct: [id number] PCP: Pedro Subramanian MD Admitting Physician: Jose M Wiggins MD Admission Date: 09/10/2024 Admitting Diagnosis: Acute on chronic congestive heart failure, unspecified heart failure type (HCC) [I50.9] Unit/Bed: [facility]254/[facility] B Hospital Day: 2 Code Status: Full Code Subjective: Overnight events: No significant overnight events. Patient is resting in bed. Still has significant pitting edema, his shortness of breath has only mildly improved. Objective: Vitals: 09/12/24 0333 09/12/24 0747 09/12/24 1008 09/12/24 1032 BP: 100/64 117/74 BP Location: Right arm Patient Position: Lying Pulse: 79 94 92 Resp: 19 16 16 Temp: 36.8 C (98.3 F) 37 C (98.6 F) TempSrc: Temporal Temporal SpO2: 94% 98% 94% Weight: Height: 5' 9" (1.753 m) Temp (24hrs), Av.8 C (98.3 F), Min:36.5 C (97.7 F), Max:37 C (98.6 F) Intake/Output Summary (Last 24 hours) at 09/12/2024 1116 Last data filed at 09/12/2024 1100 Gross per 24 hour Intake 240 ml Output -- Net 240 ml Physical Exam Constitutional: Appearance: Normal appearance. HENT: Nose: No congestion or rhinorrhea. Cardiovascular: Rate and Rhythm: Normal rate and regular rhythm. Pulses: Normal pulses. Heart sounds: Normal heart sounds. Pulmonary: Effort: Pulmonary effort is normal. No respiratory distress. Breath sounds: Wheezing present. No rales. Abdominal: General: Abdomen is flat. Bowel sounds are normal. There is distension (fluid vs other). Palpations: Abdomen is soft. Musculoskeletal: General: Swelling present. Right lower leg: Edema present. Left lower leg: Edema present. Skin: Findings: Bruising (ecchymosis right chest wall) present. Neurological: Mental Status: He is alert. Polanco: No Drains: No Central Line/Port: No Intubated: No Diet: Adult diet Easy to Chew; Low Sodium (2 gm) Medications: apixaban, 5 mg, Oral, BID dapagliflozin, 5 mg, Oral, Daily folic acid, 1 mg, Oral, Daily furosemide, 40 mg, IntraVENous, TID ipratropium-albuterol, 3 mL, Nebulization, Q4H while awake losartan, 12.5 mg, Oral, Daily metoprolol succinate XL, 100 mg, Oral, BID mometasone-formoterol, 2 puff, Inhalation, BID nicotine, 1 patch, TransDERmal, Daily rosuvastatin, 40 mg, Oral, Daily sertraline, 100 mg, Oral, Daily spironolactone, 25 mg, Oral, Daily tiotropium, 2 puff, Inhalation, Daily [Held by provider] torsemide, 20 mg, Oral, Once Continuous Infusions: PRN Meds: PRN medications: acetaminophen OR acetaminophen, ondansetron ODT OR ondansetron, polyethylene glycol (PEG) 3350 Labs: CBC: Results from last 7 days Lab Units 09/12/24 0157 09/11/24 0341 09/10/24 1435 WBC AUTO 10*3/uL 6.6 3.8 5.2 HEMOGLOBIN g/dL 11.7* 11.5* 11.6* HEMOGLOBIN BG g/dl 12.8* -- 12.9* HEMATOCRIT % 35.2* 34.4* 35.4* PLATELETS 10*3/uL 157 140 162 NEUTROS PCT AUTO % 79.7 -- 70.6 LYMPHO PCT MAN % -- 2* -- LYMPHS PCT AUTO % 9.1* -- 13.6* MONO PCT MAN % -- 0* -- MONOS PCT AUTO % 8.8 -- 9.4 EOS PCT AUTO % 1.5 -- 5.2 BMP: Results from last 7 days Lab Units 09/12/2415609/11/24 03409/10/24 1435 SODIUM mmol/L 132* 135* 135* POTASSIUM mmol/L 4.3 4.0 4.4 CHLORIDE mmol/L 100 98 101 CO2 mmol/L 24 28 27 BUN mg/dL 14 13 10 CREATININE mg/dL 0.71* 0.73 0.66* GLUCOSE mg/dL 120* 183* 87 CALCIUM mg/dL 7.8* 8.7* 8.5* LIVER PROFILE: Results from last 7 days Lab Units 09/12/2415609/11/24 03409/10/24 1435 ALK PHOS U/L 160* 186* 212* BILIRUBIN TOTAL mg/dL 0.8 0.9 1.0 BILIRUBIN DIRECT mg/dL -- -- 0.5* PROTEIN TOTAL g/dL 6.6 6.4 6.3* ALT U/L 33 34 36 AST U/L 77* 55* 62* PT/INR: Results from last 7 days Lab Units 09/12/24156 APTT s 32.9* INR 1.2* CARDIAC ENZYMES: Procalcitonin: No results found for: "PROCAL" Glucose: ASSESSMENT/PLAN: Dyspnea with Bilateral pitting edema with dyspnea 2/2 HFrEF exacerbation, Biventricular ICD in place 07/2022 Echo 11/2023 EF 21%, Global hypokinesis, RVSP is 47 mmHg. We will continue aggressive IV lasix as pitting edmea continues to be extensive. Pt's Creatinine is tolerating treatment - GMF - lasix 40 mg IV TID due to excessive pitting edema - strict I/o - metoprolol succinate 100 mg BID - Medications: - Spironolactone 25 mg - titrate up as tolerated - torsemide 20 mg daily hold while on IV lasix - losartan 12.5 mg daily - Farxiga 5 mg - daily labs cbc, cmp, mg, ph - TSH pending - PT/OT : home with assistant in nursing PRN -SW/CM COPD - Not on Home oxygen , consider home 02 eval - Home inhalers : Dulera and Spirvia - PRN duonebs - Nicotine patch Elevated Troponin in setting of CHF exacerbation (resolved) Delta troponin <1 - Continue to monitor - follow up Serial troponin Risk for delirium Debility - delirium protocol - fall precautions Alcohol abuse Elevated LFT - seizure precautions - monitor LFTs Atrial fibrillation Hasbled: 2 (age and alcohol use) moderate risk for major bleeding - rate controlled - apixaban 5 mg BID - - metoprolol succinate 100mg BID Pulmonary HTN DELORES - autopap therapy CAD - no longer take rosuvastatin Tobacco use - nicotine patch Raynaud phenomenon vs Buerger's - keep extremities warm as needed - advise smoking cessation hx of non-compliance with medical care and poor outpatient follow up. FEN/GI/DVT IVF: None Electrolytes: Monitor and replace per protocols Diet: Cardiac GI PPX: Yes :Other (please state reason) DVT Prophylaxis: No prophylaxis/Already on anticoagulation: Eliquis Telemetry: Not on Telemetry DISPOSITION: 1. Continue aggressive IV lasix FEN/GI/DVT IVF: None Electrolytes: Monitor and replace per protocols Diet: Cardiac GI PPX: Yes :Other (please state reason) DVT Prophylaxis: No prophylaxis/Already on anticoagulation: Eliquis Telemetry: Not on Telemetry DISPOSITION: Will continue to monitor pt's BMP as he is receiving aggressive diuresis Case discussed with residents, documentation reviewed, diagnostic studies reviewed, patient interviewed and examined with MTS team. Chief Complaint Patient presents with Groin Swelling Leg Swelling Fatigue the swelling has been a problem for at least a month Dyspnea a little improved. Temp (24hrs), Av.8 C (98.3 F), Min:36.5 C (97.7 F), Max:37 C (98.6 F) BP 117/74 Pulse 92 Temp 37 C (98.6 F) (Temporal) Resp 16 Ht 5' 9" (1.753 m) Wt 202 lb 12.8 oz (92 kg) SpO2 94% BMI 29.95 kg/m Alert. Engages only minimally. No acute distress. Heart irregularly irregular, no murmurs. Lungs somewhat diminished Abd - protuberant, soft, nontender, BS present Extr - 3+ edema Lab Results Component Value Date WBC 6.6 09/12/2024 HGB 11.7 (L) 09/12/2024 HGB 12.8 (L) 09/12/2024 HCT 35.2 (L) 09/12/2024 MCV 94.1 09/12/2024 PLT 157 09/12/2024 Lab Results Component Value Date NA 132 (L) 09/12/2024 K 4.3 09/12/2024 CL 100 09/12/2024 CO2 24 09/12/2024 BUN 14 09/12/2024 CREATININE 0.71 (L) 09/12/2024 GLUCOSE 120 (H) 09/12/2024 CALCIUM 7.8 (L) 09/12/2024 Summary of singh issues: HFrEF exacerbation - Continue aggressive diuresis with furosemide. Continue GDMT. COPD - continue nebs. Maintaining appropriate sats on room air. On LAMA/LABA/ICS therapy. Afib - rate adequately controlled. Continue apixaban. DELORES - nocturnal pap Cirrhosis - Continue aggressive diuresis with furosemide. Also on spironolactone for GDMT of HF. Hx alcohol abuse, now in remission. Tobacco abuse - encourage cessation. See resident's note for additional details. Images from the original note were not included. PHYSICAL THERAPY [facility] Name/MRN: Krystina Rashi ([id number]) Date: 09/12/2024 PT treatment attempted. Patient refused due to fatigue, even after education on benefits of mobility. He is independently ambulating to the restroom and transferring without assistance. Will re-attempt as schedule permits. Alonso Markham PT MTS ATTENDING H and P Chart reviewed, case discussed with residents. Agree with findings as documented per resident H and P and resident notes. Independent H and P done Chief Complaint Patient presents with Groin Swelling Leg Swelling Fatigue the swelling has been a problem for at least a month HPI: 69yo presents with worsening SOB over past 3-7 days associated with increased leg into groin swelling. Has dry cough and wheezing. No chest pain or palpitations. No dizziness or LH. Recently stopped daily alcohol use. Hospitalized 08/19 for the same issues. Reports compliance with meds. Past Medical History: Diagnosis Date Alcohol consumption heavy 09/10/2015 Asthma Atrial fibrillation (HCC) CHF (congestive heart failure) (HCC) 01/31/2016 COPD (chronic obstructive pulmonary disease) (HCC) 09/10/2015 Cor, pulmonale, acute (CMS/HCC) (HCC) Deep venous thrombosis (HCC) 02/2016 Depression Hx of blood clots Obesity 09/10/2015 DELORES (obstructive sleep apnea) Pulmonary embolus (HCC) 6 16 Raynaud phenomenon 09/10/2015 Smoker 09/10/2015 Past Surgical History: Procedure Laterality Date ABDOMINAL SURGERY BRONCHOSCOPY 02/25/2020 BRONCHOSCOPY (HISTORICAL) 02/25/2020 COLONOSCOPY 10/27/[address] CHEST ANGIOGRAM W AND/OR WO IV CONTRAST 07/12/2022 CT CHEST ANGIOGRAM W AND/OR WO IV CONTRAST 07/12/2022 [facility] CT IMAGING FINGER AMPUTATION Left HERNIA REPAIR NOSE SURGERY No Known Allergies MEDS: LISTED Social History Tobacco Use Smoking status: Former Current packs/day: 0.25 Average packs/day: 0.3 packs/day for 52.3 years (13.1 ttl pk-yrs) Types: Cigarettes Start date: 1972 Smokeless tobacco: Never Tobacco comments: 8 cig daily Substance Use Topics Alcohol use: Not Currently Alcohol/week: 7.0 standard drinks of alcohol Types: 7 Cans of beer per week Comment: once beer daily Drug use: Never ROS: 10 systems done PEX: BP 116/76 (BP Location: Left arm, Patient Position: Sitting) Pulse 88 Temp 36.7 C (98.1 F) (Temporal) Resp 18 SpO2 (!) 89% Gen: chronically ill appearing, tired, seated at bedside Head: normocephalic Neck: supple, no nodes Lungs: clear but decreased throughout Heart: irreg irreg, NS1, S2 Abdo: rotund, soft, NT, BS present Ext: 3+ edema plus sacral and abdominal wall edema Neuro: A and O x4, non focal Lab Results Component Value Date WBC 3.8 09/11/2024 HGB 11.5 (L) 09/11/2024 HCT 34.4 (L) 09/11/2024 MCV 93.7 09/11/2024 PLT 140 09/11/2024 Lab Results Component Value Date GLUCOSE 183 (H) 09/11/2024 CALCIUM 8.7 (L) 09/11/2024 NA 135 (L) 09/11/2024 K 4.0 09/11/2024 CO2 28 09/11/2024 CL 98 09/11/2024 BUN 13 09/11/2024 CREATININE 0.73 09/11/2024 Lab Results Component Value Date ALT 34 09/11/2024 AST 55 (H) 09/11/2024 GGT 98 (H) 08/20/2024 ALKPHOS 186 (H) 09/11/2024 BILITOT 0.9 09/11/2024 Lab Results Component Value Date ALBUMIN 2.6 (L) 09/11/2024 PT (08/19/24): 14.2 (1.3) BNPT: 9148 (5900-12,[id number]) TROP: 37-38 ETHYL GLUCURONIDE: NEG VB.31/64/31 EKG: A fib, anterior Q waves, LBBB, PVC CXR: IMPRESSION: CHF with interstitial edema and pleural effusions. ECHO (11/23): Left Ventricle: Left ventricle is moderately dilated. LVIDd is 6.4 cm. Mildly increased wall thickness. Severely reduced left ventricular systolic function. EF by 2D Simpsons Biplane is 21%. Global hypokinesis present. Right Ventricle: Right ventricle is severely dilated. Pacemaker lead present in the right ventricle. Tricuspid Valve: Moderately severe (3+) regurgitation. RVSP may be underestimated in the setting of severe TR. RVSP is 47 mmHg. Left Atrium: Left atrium is severely dilated. LA Vol Index A/L is 73 mL/m2. Right Atrium: Right atrium is severely dilated. Mitral Valve: Annular dilation. Mild to moderate (1-2+) regurgitation. IVC is severely dilated. IVC diameter is dilated and decreases less than 50% during inspiration; therefore the estimated right atrial pressure is elevated (~15 mmHg). A: Acute Respiratory Failure w/hypoxia and hypercarbia HFrEF w/acute exacerbation COPD/Chronic Respiratory Failure Anasarca Cirrhosis A Fib Pacemaker/Defib status DELORES Tobacco Use DO Alcohol Abuse-now remission Hx of PE P: Oxygen to keep sats 90-92%. Avoid over oxygenation in setting of CO2 retention Aggressive diuresis. Continue GDMT. Repeat Echo and Cardio consult if worsening Aerosols. Folate, MVI, alcohol cessation, nutrition support. Repeat PT (INR) with AM labs Apixaban, rate control meds PAP therapy per home routine Follow closely. Repeat VBG in AM (09/12) PT eval and treat Images from the original note were not included. PHYSICAL THERAPY [facility] Initial Evaluation Name/MRN: Krystina Markham ([id number]) Evaluation Date: 09/11/2024 Date of : 1955 Admission Date: 09/10/2024 1:54 PM Age: 69 y.o. Room/Bed: / Discharge Recommendation: Home with assist PRN, Home with Home health PT Equipment Needed: No Assessment IMPRESSION: Pt presents with decreased functional mobility, decreased strength, decreased safety awareness, decreased endurance and impaired balance. Pt has decreased standing balance, decreased SpO2 with exertion and fatigue requiring 1 person for safety at this time placing him at an increased risk of falling. Pt could benefit from continued PT in order to address his decreased functional mobility, strength, balance and safety. Pt has medical history as indicated below that contributes to his clinical presentation. At baseline patient is functionally independent with his. Currently patient is supervision with no device and SpO2 decreasing to low 80s with mobility. Pt is anticipated to progress with acute therapies and medical management in order to return home with assist and [facility] PT. Admitting Diagnosis: Pt admitted with groin and LE swelling, SOB and HFrEF. Prognosis: good Performance Deficits /Impairments: Decreased Functional Mobility and Decreased Endurance Decision Making: Low Complexity Subjective Patient pleasant and agreeable to therapy session this date. Per RN patient okay for therapy. Observation: room air Vitals SpO2 83 - 94% Pain: Pt denies any current pain. Past Medical History: Past Medical History: Diagnosis Date Alcohol consumption heavy 09/10/2015 Asthma Atrial fibrillation (HCC) CHF (congestive heart failure) (HCC) 01/31/2016 COPD (chronic obstructive pulmonary disease) (HCC) 09/10/2015 Cor, pulmonale, acute (CMS/HCC) (HCC) Deep venous thrombosis (HCC) 02/2016 Depression Hx of blood clots Obesity 09/10/2015 DELORES (obstructive sleep apnea) Pulmonary embolus ([facility]) 6 16 Raynaud phenomenon 09/10/2015 Smoker 09/10/2015 Past Surgical History: Past Surgical History: Procedure Laterality Date ABDOMINAL SURGERY BRONCHOSCOPY 02/25/2020 BRONCHOSCOPY (HISTORICAL) 02/25/2020 COLONOSCOPY 10/27/[address] CHEST ANGIOGRAM W AND/OR WO IV CONTRAST 07/12/2022 CT CHEST ANGIOGRAM W AND/OR WO IV CONTRAST 07/12/2022 [facility] CT IMAGING FINGER AMPUTATION Left HERNIA REPAIR NOSE SURGERY Admission Diagnosis: Patient Active Problem List Diagnosis Date Noted Acute on chronic congestive heart failure, unspecified heart failure type (HCC) 09/10/2024 Financial difficulties 08/20/2024 Pulmonary HTN ([facility]) 08/19/2024 DELORES on CPAP 04/15/2024 Heavy tobacco smoker 04/15/2024 Cigarette smoker 04/15/2024 Personal history of smoking 04/15/2024 Paroxysmal atrial fibrillation (HCC) 03/03/2024 Cervical spondylosis 03/02/2024 Non-pressure chronic ulcer of other part of right foot with unspecified severity (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) 02/17/2024 Alcohol abuse with withdrawal, uncomplicated ([facility]) 02/17/2024 Right arm numbness 02/13/2024 Persistent depressive disorder 02/13/2024 DELORES (obstructive sleep apnea) 02/13/2024 Poor compliance with medication 02/13/2024 On continuous oral anticoagulation 11/21/2023 Acute exacerbation of CHF (congestive heart failure) ([facility]) 11/12/2023 Medical non-compliance 11/12/2023 Anemia in other chronic diseases classified elsewhere 01/01/2023 Closed fracture of neck of left humerus with routine healing 12/31/2022 Hyponatremia 12/29/2022 COPD exacerbation (HCC) 09/13/2022 Alcohol abuse, continuous 07/28/2022 Presence of implantable cardioverter-defibrillator (ICD) 07/19/2022 Chest pain, unspecified type 07/17/2022 Hypochloremia 07/17/2022 Tobacco abuse 07/17/2022 HFrEF (heart failure with reduced ejection fraction) ([facility]) 07/17/2022 Permanent atrial fibrillation ([facility]) 08/25/2021 History of rib fracture 08/25/2021 Chronic hyponatremia 08/25/2021 Essential hypertension 08/25/2021 COPD (chronic obstructive pulmonary disease) (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) 04/10/2017 Cor, pulmonale, acute ([facility]) ([facility]) 02/01/2016 Raynaud phenomenon 09/10/2015 Medical Precautions: No active isolations Proper PPE donned/doffed in accordance with facility standards. Fall Risk: (High Risk) Precautions/Restrictions: N/A Family/Caregiver Present: none Overall Cognitive Status: WFL Overall Orientation Status: Oriented x4 Vision: No Visual Deficits Hearing: normal Social/Functional History Patient admitted from home. Lives With: Alone Type of Home: apartment Home Layout: Single Level Home Home Access: Stairs to Enter without Rails (# of stairs: 1) Bathroom Shower/Tub: Tub/Shower Combo, Shower Chair with Back, and Grab Bars Toilet: Standard and Grab Bars Home Equipment: front wheeled walker Homemaking Responsibilities: Independent Receives Help From: Family Active Food Services Director: Yes Prior Level of Function Prior Level of ADL Function: Independent Prior Level of Mobility: Independent; Device: None Prior Level of Transfers: Independent Objective Lower Extremity Assessment AROM: WFL Strength: WFL Bed Mobility: NT patient sitting EOB pre/post session Transfers Sit to stand: Modified Independent, to no device from EOB Stand to sit: Modified Independent Denies dizziness on initial stance. No true LOB or instability. Ambulation Ambulation 1 Assistive device(s) used: None Assist level: Supervision Distance (ft): 150 ft x 1, 80 ft x 1 Quality of gait: No LOB, reciprocal stepping, B foot clearance, uneven step length Stable gait with no device at this time. Limited by fatigue and SpO2 at this time. Mild SOB noted and SpO2 decreases to 83% with >75 ft ambulation. Able to return to >90% on room air with standing rest breaks and PLB ~30 seconds. Outcome Measures AM-PAC How much HELP from another person do you currently need Turning from your back to your side while in a flat bed without using bedrails?: None Moving from lying on your back to sitting on the side of a flat bed without using bedrails?: None Moving to and from a bed to a chair (including a wheelchair)?: None Standing up from a chair using your arms (wheelchair or bedside chair)?: None Walking in a hospital room?: A Little Stair climbing assessed?: No AM-PAC Inpatient Mobility Raw Score (No Stairs) : 19 Plan Pt would benefit from skilled acute PT services to address Strengthening, Gait Training, Balance Training, Self-Care/ADL Training, Functional Mobility Training, Endurance Training, Safety Education and Training, Stair Training, Equipment Evaluation/Education, and Home Management Training. Frequency: 4 visits Barriers: Decreased endurance Safety/Education Safety Safety Devices in place: All fall risk precautions in place, call light within reach, left in bed, gait belt, patient at risk for falls, nurse notified, no alarms engaged upon entry, and patient left sitting EOB Restraints: N/A Education Education Given To: patient Education Provided: PT Role, PT Goals, Gait Training, Plan of Care, Energy Conservation, Fall Prevention Education, Discharge Recommendations, Benefits of Increasing Activity, and Breathing Techniques Education Method: Verbal, Demonstration, and Teach Back Barriers to Learning: None Education Outcome: Verbalized Understanding, Demonstrated Understanding, and Continued Education Needed Goals Patient Stated Goal: Patient states he wants to get home soon. Encounter Problems Encounter Problems (Active) Balance Patient will maintain dynamic standing balance for 5 minutes with modified independence in order to demonstrate decreased risk of falling. Start: 09/11/24 Expected End: 09/18/24 Mobility Patient will ambulate 200 feet with modified independence and least restrictive device in order to improve safety and independence with mobility while maintaining SpO2 >90%. Start: 09/11/24 Expected End: 09/18/24 Patient will ascend and descend 1 stairs with least restrictive device and modified independence in order to safely negotiate home. Start: 09/11/24 Expected End: 09/18/24 Therapy Time Individual Co-Treatment Co-Evaluation Time In 1003 Time Out 1014 Minutes 11 Nia Eubanks PT Patient's Physical Therapy Plan of Care supervision is transferred to a [facility] Physical Therapist. Goals and/or treatment plan was established in collaboration with patient/family/other representatives. Images from the original note were not included. Medical Teaching Service Progress Note Patient: Krystina Markham : 1955 Acct: [id number] PCP: Pedro Subramanian MD Admitting Physician: Jose M Wiggins MD Admission Date: 09/10/2024 Admitting Diagnosis: Acute on chronic congestive heart failure, unspecified heart failure type (HCC) [I50.9] Unit/Bed: [facility] Hospital Day: 1 Code Status: Full Code Subjective: Overnight events: No significant overnight events. Patient reports feeling much better. Tolerating P.O very well and voiding appropriately. He is off oxygen and does not feel SOB. He denies cough, fevers, chills, light headedness, chest pain and chest tightness. Objective: Vitals: 09/11/24 0309 09/11/24 0431 09/11/24 0851 09/11/24 0921 BP: 110/68 122/69 118/58 BP Location: Left arm Left arm Left arm Patient Position: Lying Sitting Sitting Pulse: 85 95 94 94 Resp: 18 18 18 18 Temp: 36.4 C (97.6 F) 36.8 C (98.2 F) TempSrc: Temporal Temporal SpO2: 93% (!) 90% (!) 90% Temp (24hrs), Av.7 C (98 F), Min:36.2 C (97.1 F), Max:37.4 C (99.3 F) Intake/Output Summary (Last 24 hours) at 09/11/2024 0941 Last data filed at 09/10/2024 2223 Gross per 24 hour Intake 340 ml Output 350 ml Net -10 ml Physical Exam Constitutional: Appearance: Normal appearance. HENT: Head: Normocephalic and atraumatic. Cardiovascular: Rate and Rhythm: Normal rate and regular rhythm. Pulses: Normal pulses. Heart sounds: Normal heart sounds. Pulmonary: Effort: Pulmonary effort is normal. No respiratory distress. Breath sounds: Normal breath sounds. No wheezing or rales. Comments: On room air 93% Abdominal: General: Abdomen is flat. Bowel sounds are normal. There is no distension. Palpations: Abdomen is soft. Tenderness: There is no abdominal tenderness. Musculoskeletal: General: Swelling (2+ pitting edema) present. Right foot: Swelling present. Left foot: Swelling present. Neurological: General: No focal deficit present. Mental Status: He is alert and oriented to person, place, and time. Polanco: No Drains: No Central Line/Port: No Intubated: No Diet: Adult diet Regular; Low Fat/Low Chol/High Fiber/2 gm Na Medications: apixaban, 5 mg, Oral, BID dapagliflozin, 5 mg, Oral, Daily folic acid, 1 mg, Oral, Daily furosemide, 40 mg, IntraVENous, BID ipratropium-albuterol, 3 mL, Nebulization, Q4H while awake losartan, 12.5 mg, Oral, Daily metoprolol succinate XL, 100 mg, Oral, BID mometasone-formoterol, 2 puff, Inhalation, BID nicotine, 1 patch, TransDERmal, Daily rosuvastatin, 40 mg, Oral, Daily sertraline, 100 mg, Oral, Daily spironolactone, 25 mg, Oral, Daily tiotropium, 2 puff, Inhalation, Daily [Held by provider] torsemide, 20 mg, Oral, Once Continuous Infusions: PRN Meds: PRN medications: acetaminophen OR acetaminophen, ondansetron ODT OR ondansetron, polyethylene glycol (PEG) 3350 Labs: CBC: Results from last 7 days Lab Units 09/11/24 0341 09/10/24 1435 WBC AUTO 10*3/uL 3.8 5.2 HEMOGLOBIN g/dL 11.5* 11.6* HEMOGLOBIN BG g/dl -- 12.9* HEMATOCRIT % 34.4* 35.4* PLATELETS 10*3/uL 140 162 NEUTROS PCT AUTO % -- 70.6 LYMPHO PCT MAN % 2* -- LYMPHS PCT AUTO % -- 13.6* MONO PCT MAN % 0* -- MONOS PCT AUTO % -- 9.4 EOS PCT AUTO % -- 5.2 BMP: Results from last 7 days Lab Units 09/11/24 0341 09/10/24 1435 SODIUM mmol/L 135* 135* POTASSIUM mmol/L 4.0 4.4 CHLORIDE mmol/L 98 101 CO2 mmol/L 28 27 BUN mg/dL 13 10 CREATININE mg/dL 0.73 0.66* GLUCOSE mg/dL 183* 87 CALCIUM mg/dL 8.7* 8.5* LIVER PROFILE: Results from last 7 days Lab Units 09/11/24 0341 09/10/24 1435 ALK PHOS U/L 186* 212* BILIRUBIN TOTAL mg/dL 0.9 1.0 BILIRUBIN DIRECT mg/dL -- 0.5* PROTEIN TOTAL g/dL 6.4 6.3* ALT U/L 34 36 AST U/L 55* 62* Assessment/Plan: Dyspnea with Bilateral pitting edema with dyspnea 2/2 HFrEF exacerbation, Biventricular ICD in place 07/2022 Echo 11/2023 EF 21%, Global hypokinesis, RVSP is 47 mmHg. BNP 9,148 Pt denies wanting placement ,CXR - interstitial edema and pleural effusions - lasix 40 mg IV TID due to excessive pitting edema - strict I/o - metoprolol succinate 100 mg BID - Medications: - Spironolactone 25 mg - titrate up as tolerated - torsemide 20 mg daily hold while on IV lasix - losartan 12.5 mg daily - Farxiga 5 mg - daily labs cbc, cmp, mg, ph - TSH pending - PT/OT : home with assistant in nursing PRN -SW/CM COPD - Not on Home oxygen , consider home 02 eval - Home inhalers : Dulera and Spirvia - PRN duonebs - Nicotine patch Elevated Troponin in setting of CHF exacerbation (resolved) Delta troponin <1 - Continue to monitor - follow up Serial troponin Risk for delirium Debility - delirium protocol - fall precautions Alcohol abuse Elevated LFT - seizure precautions - monitor LFTs Atrial fibrillation Hasbled: 2 (age and alcohol use) moderate risk for major bleeding - rate controlled - apixaban 5 mg BID - - metoprolol succinate 100mg BID Pulmonary HTN DELORES - autopap therapy CAD - no longer take rosuvastatin Tobacco use - nicotine patch Raynaud phenomenon vs Buerger's - keep extremities warm as needed - advise smoking cessation hx of non-compliance with medical care and poor outpatient follow up. FEN/GI/DVT IVF: None Electrolytes: Monitor and replace per protocols Diet: Cardiac GI PPX: Yes :Other (please state reason) DVT Prophylaxis: No prophylaxis/Already on anticoagulation: Eliquis Telemetry: Not on Telemetry DISPOSITION: Will continue to monitor improvement S/P IV lasix today Pt is refusing SNF NDUM: Continue with IV lasix 40mg TID. I have personally seen the patient and performed a history and physical exam. I have discussed the patient with the resident and attending. I have reviewed the note and agree with the assessment and plan as documented, with my additions in blue. Gifty Holguin MD Family Medicine, PGY-III 09/11/24 12:50 PM Images from the original note were not included. OCCUPATIONAL THERAPY [facility] Initial Evaluation Name/MRN: Krystina Markham ([id number]) Evaluation Date: 09/11/2024 Date of : 1955 Admission Date: 09/10/2024 1:54 PM Age: 69 y.o. Room/Bed: 37/37 Discharge Recommendation: Home with assist PRN Assessment IMPRESSION: EVAL ONLY: Pt was and continues to be functinally independent in ADLs, functional transfers and mobility. Pt with no concerns in returning home and pt with no acute OT needs. Admitting Diagnosis: Pt admitted with BLE swelling and SOB, found to have HFrEF exacerbation. Performance Deficits /Impairments: N/A Prognosis: Good Decision Making: Low Complexity Subjective Pt pleasant and cooperative. Per RN, ok for pt to participate in OT eval. ED tele intact. Pain: Pt denies any current pain. Past Medical History: Past Medical History: Diagnosis Date Alcohol consumption heavy 09/10/2015 Asthma Atrial fibrillation (HCC) CHF (congestive heart failure) ([facility]) 01/31/2016 COPD (chronic obstructive pulmonary disease) ([facility]) 09/10/2015 Cor, pulmonale, acute (CMS/HCC) ([facility]) Deep venous thrombosis ([facility]) 02/2016 Depression Hx of blood clots Obesity 09/10/2015 DELORES (obstructive sleep apnea) Pulmonary embolus ([facility]) 6 16 Raynaud phenomenon 09/10/2015 Smoker 09/10/2015 Past Surgical History: Past Surgical History: Procedure Laterality Date ABDOMINAL SURGERY BRONCHOSCOPY 02/25/2020 BRONCHOSCOPY (HISTORICAL) 02/25/2020 COLONOSCOPY 10/27/[address] CHEST ANGIOGRAM W AND/OR WO IV CONTRAST 07/12/2022 CT CHEST ANGIOGRAM W AND/OR WO IV CONTRAST 07/12/2022 [facility] CT IMAGING FINGER AMPUTATION Left HERNIA REPAIR NOSE SURGERY Admission Diagnosis: Patient Active Problem List Diagnosis Date Noted Acute on chronic congestive heart failure, unspecified heart failure type ([facility]) 09/10/2024 Financial difficulties 08/20/2024 Pulmonary HTN ([facility]) 08/19/2024 DELORES on CPAP 04/15/2024 Heavy tobacco smoker 04/15/2024 Cigarette smoker 04/15/2024 Personal history of smoking 04/15/2024 Paroxysmal atrial fibrillation ([facility]) 03/03/2024 Cervical spondylosis 03/02/2024 Non-pressure chronic ulcer of other part of right foot with unspecified severity (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) 02/17/2024 Alcohol abuse with withdrawal, uncomplicated ([facility]) 02/17/2024 Right arm numbness 02/13/2024 Persistent depressive disorder 02/13/2024 DELORES (obstructive sleep apnea) 02/13/2024 Poor compliance with medication 02/13/2024 On continuous oral anticoagulation 11/21/2023 Acute exacerbation of CHF (congestive heart failure) ([facility]) 11/12/2023 Medical non-compliance 11/12/2023 Anemia in other chronic diseases classified elsewhere 01/01/2023 Closed fracture of neck of left humerus with routine healing 12/31/2022 Hyponatremia 12/29/2022 COPD exacerbation (HCC) 09/13/2022 Alcohol abuse, continuous 07/28/2022 Presence of implantable cardioverter-defibrillator (ICD) 07/19/2022 Chest pain, unspecified type 07/17/2022 Hypochloremia 07/17/2022 Tobacco abuse 07/17/2022 HFrEF (heart failure with reduced ejection fraction) ([facility]) 07/17/2022 Permanent atrial fibrillation ([facility]) 08/25/2021 History of rib fracture 08/25/2021 Chronic hyponatremia 08/25/2021 Essential hypertension 08/25/2021 COPD (chronic obstructive pulmonary disease) (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) 04/10/2017 Cor, pulmonale, acute (CMS/HCC) ([facility]) 02/01/2016 Raynaud phenomenon 09/10/2015 Medical Precautions: No active isolations Proper PPE donned/doffed in accordance with facility standards. Fall Risk: (High Risk) Precautions/Restrictions: N/A Family/Caregiver Present: none Overall Cognitive Status: WFL Overall Orientation Status: Oriented x4 Social/Functional History Patient admitted from home. Lives With: Alone Type of Home: apartment Home Layout: Single Level Home Home Access: Stairs to Enter without Rails (# of stairs: 1) Bathroom Shower/Tub: Tub/Shower Combo, Shower Chair with Back, and Grab Bars Toilet: Standard and Grab Bars Home Equipment: front wheeled walker Homemaking Responsibilities: Independent Receives Help From: Family Active Food Services Director: Yes Prior Level of Function Prior Level of ADL Function: Independent Prior Level of Mobility: Independent; Device: None Prior Level of Transfers: Independent Objective ADLs Pt fully dressed and declined to complete ADLs at this time, however, pt reports independently completing ADLs this admission with no concerns in completing. Upper Extremity Assessment AROM: WFL PROM: WFL Strength: WFL Bed Mobility NT seated at EOB pre/post session. Transfers/Mobility Sit to stand: Independent Stand to sit: Independent Functional mobility: Independent Pt independently completed STS to/from EOB. Pt ambulated a functional distance in goode independently with no LOB noted. Pt reports he is at baseline and has no concerns in returning home. Device(s) used: None AM-PAC AM-PAC Inpatient Daily Activity Raw Score: 24 ADL Inpatient CMS G-Code Modifier: CH Plan No skilled acute OT indicated at this time. Please reconsult should changes occur. Safety/Education Safety Safety Devices in place: All fall risk precautions in place, call light within reach, left in bed, patient at risk for falls, nurse notified, no alarms engaged upon entry, and patient left sitting EOB Restraints: No Education Education Given To: patient Education Provided: OT Role and Plan of Care Education Method: Verbal Barriers to Learning: None Education Outcome: Verbalized Understanding and Demonstrated Understanding Goals Patient Stated Goal: to go home Therapy Time Individual Co-Treatment Co-Evaluation Time In 900 Time Out 0912 Minutes 11 [place] OT Patient's Occupational Therapy Plan of Care supervision is transferred to a [facility] Services Occupational Therapist. Goals and/or treatment plan was established in collaboration with patient/family/other representatives. [facility] Respiratory Care Department Progress Note Comment or reasoning for refusal: Patient was seen in attempts to fulfill CPAP/BiPAP/AutoPAP order. Patient refused PAP therapy/study at this time. Patient was educated on medical need and reasoning for physician order to ensure patient was making an informed medical decision. All of the patient's questions were answered at this time and patient was informed that if the patient changes their mind regarding wearing PAP to hit their "call light" or inform their nurse to contact Respiratory. A second, consecutive night of refusing PAP therapy/study results in order completion in the EMR. If future CPAP/BiPAP/AutoPAP therapy or study is indicated please place another order in the EMR and the assigned Respiratory Therapist will reattempt to fulfill orders. Reason for refusal: pt non compliant with O2 keeps taking NC off. Thank you for involving Respiratory in the care of this patient, documented in this encounter [facility] 09-16-2024 Plan of care note Problem: Knowledge Deficit Goal: Patient/family/caregiver demonstrates understanding of disease process, treatment plan, medications, and discharge instructions Outcome: Progressing Problem: Hemodynamic Status Goal: Patient's vitals signs are stable Outcome: Progressing Problem: Excessive Fluid Volume Goal: Fluid and electrolyte balance are achieved/maintained Outcome: Progressing Problem: Inadequate Gas Exchange Goal: Patient is adequately oxygenated and ventilation is improved Outcome: Progressing Goal: Nutritional status is improving Outcome: Progressing Problem: Activity Intolerance/Impaired Mobility Goal: Mobility/activity is maintained at optimum level for patient Outcome: Progressing Problem: Nutrition Goal: Nutritional status is improving Outcome: Progressing Problem: Problem Interventions Goal: Assess Nutritional Intake Outcome: Progressing [facility] 09-15-2024 Note Formatting of this n ote is different from the original. Start PACC Note Home Health Referral Educated patient and Melodie on Home Care and services available. Patient offered choice of available HHC and agreeable to SN services with [facility]. Please call Melodie on the way to her home, so she can put the dog in another room. Care Types: None Isolation Precautions: No active isolations Social Determinates of Health: Tobacco Use: Medium Risk (09/11/2024) Patient History Smoking Tobacco Use: Former Smokeless Tobacco Use: Never Passive Exposure: Not on file Social History Substance and Sexual Activity Alcohol Use Not Currently Alcohol/week: 7.0 standard drinks of alcohol Types: 7 Cans of beer per week Comment: once beer daily Social History Substance and Sexual Activity Drug Use Never Does the patient have any financial resource strain? No Does the patient have any food insecurities? No Does the patient have any housing instabilities? No If any of the above is noted as yes - consider a STUDIO OPERATIONS MANAGER evaluation once the patient returns home. START PATIENT REGISTRATION INFORMATION Order Information Order Signing Physician: Jose M Wiggins MD Service Ordered RN ?: Yes Service Ordered PT ?: No Service Ordered OT ?: No Service Ordered ST ?: No Service Ordered STUDIO OPERATIONS MANAGER?:No Service Ordered FILAMENT WELDER?: Yes Following Physician: Pedro Subramanian MD Following Physician Overseeing Physician: Dr Jose M Wiggins (Required for Residents only) Agreeable to Follow? Yes Date/Time of Call 09/15/24 5:00 PM, Spoke with: office family medicine at [facility] Same Day SOC?: No Primary Care Physician: Pedro Subramanian MD Primary Care Physician Primary Care Physician Address: [address] [place] [address] / [facility] [id number] Visit Instructions: N/A Service Discharge Location Type: Home with Home Care Service Facility Name: N/A Service Floor Facility: N/A Service Room No: N/A Demographics Patient Last Name: Rashi Patient First Name: Krystina Language/Communication Barrier: NA Service Address: [facility] [place] Service City: [facility] ST: [place] Service ZIP: [phone] Service Other phone numbers: Telephone Information: Emergency Contact: Extended Emergency Contact Information Primary Emergency Contact: Melodie Tavarez Address: [address] [place] [address]. [place] [address] [facility] [place] Relation: Other Admission Information Admit Date: 09/10/2024 Patient status at discharge: Inpatient Admitting Diagnosis: Acute on chronic congestive heart failure, unspecified heart failure type (HCC) [I50.9] Caregiver Information Caregiver First Name: Melodie Caregiver Last Name: Ashia Caregiver Relationship to Patient ex Caregiver Caregiver Notes: pt will be staying with Melodie prior to returning to his home [employer]: [place] TECH - NEXT DAY REQUEST Requests Next Available SOC/EDGARDO END PATIENT REGISTRATION INFORMATION Pt Home Health goal home COVID Status 1. Do you have any upper respiratory symptoms (cough, SOB, Fever)? No 2. Have you been exposed to anyone with COVID-19 Virus? No Answer only if pending or positive for COVID-19? 1. Agreeable to wear PPE at each visit? NA 2. Is the hospital supplying them with PPE upon Discharge? NA Start PACC Summary General Report/ Additional Comments 69 y.o. male Patient was brought in to the ED due to shortness of breath at rest and exertion. He has leg swelling which has bene occurring for a month. He has a dry cough and a PMH of CHF , COPD and on oxygen. On past visits per ED notes, swelling occurs from the legs into the groin and abdomen. He is a poor historian and his ex- was not present. Denies alcohol use. He denies light headedness. Chest pain and chest tightness. He is able to ambulate with his portable oxygen He is voiding appropriately Discharge Date: pending Referral Source-PACC: (Hospital/Unit): [facility] / B2-254/B2-254 B End PACC Note [facility] 09-15-2024 Note Formatting of this n ote is different from the original. Start PACC Note Home Health Referral Educated patient and Melodie on Home Care and services available. Patient offered choice of available HHC and agreeable to SN services with [facility]. Please call Melodie on the way to her home, so she can put the dog in another room. Care Types: None Isolation Precautions: No active isolations Social Determinates of Health: Tobacco Use: Medium Risk (09/11/2024) Patient History Smoking Tobacco Use: Former Smokeless Tobacco Use: Never Passive Exposure: Not on file Social History Substance and Sexual Activity Alcohol Use Not Currently Alcohol/week: 7.0 standard drinks of alcohol Types: 7 Cans of beer per week Comment: once beer daily Social History Substance and Sexual Activity Drug Use Never Does the patient have any financial resource strain? No Does the patient have any food insecurities? No Does the patient have any housing instabilities? No If any of the above is noted as yes - consider a STUDIO OPERATIONS MANAGER evaluation once the patient returns home. START PATIENT REGISTRATION INFORMATION Order Information Order Signing Physician: Jose M Wiggins MD Service Ordered RN ?: Yes Service Ordered PT ?: No Service Ordered OT ?: No Service Ordered ST ?: No Service Ordered STUDIO OPERATIONS MANAGER?:No Service Ordered FILAMENT WELDER?: Yes Following Physician: Pedro Subramanian MD Following Physician Overseeing Physician: Dr Jose M Wiggins (Required for Residents only) Agreeable to Follow? Yes Date/Time of Call 09/15/24 5:00 PM, Spoke with: office family medicine at [facility] Same Day SOC?: No Primary Care Physician: Pedro Subramanian MD Primary Care Physician Primary Care Physician Address: [address] [place] [address] / [facility] [id number] Visit Instructions: N/A Service Discharge Location Type: Home with Home Care Service Facility Name: N/A Service Floor Facility: N/A Service Room No: N/A Demographics Patient Last Name: Rashi Patient First Name: Krystina Language/Communication Barrier: NA Service Address: [address] [place] [address] Service City: [facility] ST: [place] Service ZIP: [address] Service Other phone numbers: Telephone Information: Emergency Contact: Extended Emergency Contact Information Primary Emergency Contact: Melodie Tavarez Address: [address] [place] [address]. [place], [place] [id number] [place] [address] Mobile Relation: Other Admission Information Admit Date: 09/10/2024 Patient status at discharge: Inpatient Admitting Diagnosis: Acute on chronic congestive heart failure, unspecified heart failure type (HCC) [I50.9] Caregiver Information Caregiver First Name: Melodie Caregiver Last Name: Ashia Caregiver Relationship to Patient ex Caregiver Caregiver Notes: pt will be staying with Melodie prior to returning to his home [employer]: [employer] TECH - NEXT DAY REQUEST Requests Next Available SOC/EDGARDO END PATIENT REGISTRATION INFORMATION Pt Home Health goal home COVID Status 1. Do you have any upper respiratory symptoms (cough, SOB, Fever)? No 2. Have you been exposed to anyone with COVID-19 Virus? No Answer only if pending or positive for COVID-19? 1. Agreeable to wear PPE at each visit? NA 2. Is the hospital supplying them with PPE upon Discharge? NA Start PACC Summary General Report/ Additional Comments 69 y.o. male Patient was brought in to the ED due to shortness of breath at rest and exertion. He has leg swelling which has bene occurring for a month. He has a dry cough and a PMH of CHF , COPD and on oxygen. On past visits per ED notes, swelling occurs from the legs into the groin and abdomen. He is a poor historian and his ex- was not present. Denies alcohol use. He denies light headedness. Chest pain and chest tightness. He is able to ambulate with his portable oxygen He is voiding appropriately Discharge Date: pending Referral Source-PACC: (Hospital/Unit): [facility] / B2-254/B2-254 B End PACC Note [facility] 09-15-2024 Note Formatting of this n ote might be different from the original. Return call from Melodie ex - pt will be coming to her home when discharged. Address: [address] [place], [place] [id number] [phone] She is agreeable for home care services coming to her home to provide services. [facility] 09-15-2024 Note Formatting of this n ote might be different from the original. Return call from bere Sewell - pt will be coming to her home when discharged. Address: [address] [place] [id number] [phone] She is agreeable for home care services coming to her home to provide services. [facility] 09-15-2024 Note Formatting of this n ote might be different from the original. Spoke to patient regarding home care SN services after discharge. Pt is agreeable. Pt unsure if he will be going home to his address, or to his ex , Melodie's home. Permission given by pt to call Melodie to confirm what address will be plan at discharge. Called Melodie and left HIPAA compliant message and call back number. [facility] 09-15-2024 Note Formatting of this n ote might be different from the original. Spoke to patient regarding home care SN services after discharge. Pt is agreeable. Pt unsure if he will be going home to his address, or to his ex , Melodie's home. Permission given by pt to call Melodie to confirm what address will be plan at discharge. Called Melodie and left HIPAA compliant message and call back number. [facility] 09-14-2024 Note Formatting of this n ote might be different from the original. Pt admitted for acute on chronic CHF. Chart reviewed. Receiving IV Lasix, +3 pitting edema extensive. PT recommending home with HHC. Tasked HHC to follow. On room air at this time. No other needs noted at this time. manager assisted living to follow and assist as needed. [facility] 09-14-2024 Note Formatting of this n ote might be different from the original. Pt admitted for acute on chronic CHF. Chart reviewed. Receiving IV Lasix, +3 pitting edema extensive. PT recommending home with HHC. Tasked HHC to follow. On room air at this time. No other needs noted at this time. manager assisted living to follow and assist as needed. [facility] 09-14-2024 Note Formatting of this n ote might be different from the original. Machine Precision Etcher following case for Discharge Needs. [facility] 09-14-2024 Note Formatting of this n ote might be different from the original. Machine Prec[employer] Etcher following case for Discharge Needs. [facility] 09-14-2024 Plan of care note Problem: Knowledge Deficit Goal: Patient/family/caregiver demonstrates understanding of disease process, treatment plan, medications, and discharge instructions Outcome: Progressing Problem: Hemodynamic Status Goal: Patient's vitals signs are stable Outcome: Progressing Problem: Excessive Fluid Volume Goal: Fluid and electrolyte balance are achieved/maintained Outcome: Progressing Problem: Inadequate Gas Exchange Goal: Patient is adequately oxygenated and ventilation is improved Outcome: Progressing Problem: Inadequate Gas Exchange Goal: Nutritional status is improving Outcome: Progressing Problem: Activity Intolerance/Impaired Mobility Goal: Mobility/activity is maintained at optimum level for patient Outcome: Progressing [facility] 09-14-2024 Nurse Note The medical team is requesting strict I/O on this patient. This nurse educated and instructed patient the importance of measuring urine iutput. [facility] 09-14-2024 Nurse Note The medical team is requesting strict I/O on this patient. This nurse educated and instructed patient the importance of measuring urine iutput. MTS notified that patient is refusing to wear lunchroom monitor documented in this encounter [facility] 09-13-2024 Plan of care note Problem: Knowledge Deficit Goal: Patient/family/caregiver demonstrates understanding of disease process, treatment plan, medications, and discharge instructions Outcome: Progressing Problem: Hemodynamic Status Goal: Patient's vitals signs are stable Outcome: Progressing Problem: Excessive Fluid Volume Goal: Fluid and electrolyte balance are achieved/maintained Outcome: Progressing Problem: Inadequate Gas Exchange Goal: Patient is adequately oxygenated and ventilation is improved Outcome: Progressing Goal: Nutritional status is improving Outcome: Progressing Problem: Activity Intolerance/Impaired Mobility Goal: Mobility/activity is maintained at optimum level for patient Outcome: Progressing Problem: Nutrition Goal: Nutritional status is improving Outcome: Progressing Problem: Problem Interventions Goal: Assess Nutritional Intake Outcome: Progressing [facility] 09-13-2024 Plan of care note Problem: Knowledge Deficit Goal: Patient/family/caregiver demonstrates understanding of disease process, treatment plan, medications, and discharge instructions Outcome: Progressing Problem: Hemodynamic Status Goal: Patient's vitals signs are stable Outcome: Progressing Problem: Excessive Fluid Volume Goal: Fluid and electrolyte balance are achieved/maintained Outcome: Progressing Problem: Inadequate Gas Exchange Goal: Patient is adequately oxygenated and ventilation is improved Outcome: Progressing Goal: Nutritional status is improving Outcome: Progressing Problem: Activity Intolerance/Impaired Mobility Goal: Mobility/activity is maintained at optimum level for patient Outcome: Progressing Problem: Nutrition Goal: Nutritional status is improving Outcome: Progressing Problem: Problem Interventions Goal: Assess Nutritional Intake Outcome: Progressing [facility] 09-12-2024 Plan of care note Problem: Knowledge Deficit Goal: Patient/family/caregiver demonstrates understanding of disease process, treatment plan, medications, and discharge instructions Outcome: Progressing Problem: Hemodynamic Status Goal: Patient's vitals signs are stable Outcome: Progressing Problem: Excessive Fluid Volume Goal: Fluid and electrolyte balance are achieved/maintained Outcome: Progressing Problem: Inadequate Gas Exchange Goal: Patient is adequately oxygenated and ventilation is improved Outcome: Progressing Goal: Nutritional status is improving Outcome: Progressing Problem: Activity Intolerance/Impaired Mobility Goal: Mobility/activity is maintained at optimum level for patient Outcome: Progressing Problem: Nutrition Goal: Nutritional status is improving Outcome: Progressing Problem: Problem Interventions Goal: Assess Nutritional Intake Outcome: Progressing [facility] 09-12-2024 Consult note Associated Order (s): IP CONSULT TO DIETITIAN Nutrition Assessment Type and Reason for Visit: Initial, Consult Nutrition Recommendations/Plan: Per mnt protocol will modify diet to 2 gm sodium -less restrictive to help encourage PO intake given moderate malnutrition status at this time. Easy to Chew diet textures as pt reports difficulty chewing without teeth Suggest consult Speech therapy- pt reports vague difficulty swallowing Per mnt protocol will add Ensure Plus bid (350 kcals, 20g protein per serving) Please Encourage PO and record meal intakes in RN Flowsheet Suggest supplement Vit D if low RD to monitor PO intake, labs, weight, skin status -follow up weekly Malnutrition Assessment: Malnutrition Status: Moderate malnutrition (suspect severe however insufficent data at this time) Context: Acute Illness Findings of the 6 clinical characteristics of malnutrition: Energy Intake: 75% or less of estimated energy requirements for 7 or more days Weight Loss: Unable to assess (wt increase noted -edema LE) Body Fat Loss: Mild body fat loss Orbital, Triceps Muscle Mass Loss: Mild muscle mass loss Clavicles (pectoralis & deltoids), Temples (temporalis) Fluid Accumulation: Moderate to Severe (anasarca per records) Extremities 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 male admits with worsening SOB over past 3-7 days associated with increased leg into groin swelling. acute respiratory failure, HFrEF w/acute exacerbation COPD/chronic respiratory failure, anasarca, cirrhosis, alcohol abuse-now remission. Pt reports low appetite over past month with reported difficulty chewing/swallowing edentulous -difficult obtaining details due to fatigue and pt falling asleep. breakfast at bedside untouched pt reports no appetite. 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 Pt agreed to chocololate Ensure Estimated Daily Nutrient Needs: Energy Requirements Based On: Kcal/kg Weight Used for Energy Requirements: [place] Weight for Energy Calculation (kg): 73 kg Total Energy Requirements (kcals/day): 8294-5396 (25-30) Weight Used for Protein Requirements: [place] Weight in Kg Used for Protein Requirements: 73 kg Estimated Total Protein (g/day): 73-95 (1.0-1.3) Estimated Daily Total Fluid (ml/day): per MD Nutrition Related Findings: +2 christine LE edema. bm 09/11. na 132, cr .71, bgluc 120, calcium 7.8, alkphos 160, alb 2.6, ast 77, bnp 9148. meds include farxiga, folic acid, lasix, aldactone Wound Type: None (dry skin feet noted) 09/11/24 92 kg (202 lb 12.8 oz) 08/19/24 88.5 kg (195 lb) 04/15/24 81.1 kg (178 lb 12.8 oz) 03/02/24 89 kg (196 lb 1.6 oz) 02/14/24 84 kg (185 lb 3 oz) 11/12/23 83.5 kg (184 lb) 01/08/23 89.8 kg (198 lb) 01/07/23 89.9 kg (198 lb 1.6 oz) 12/30/22 86.4 kg (190 lb 8 oz) 12/26/22 81.6 kg (180 lb) 09/19/22 88.5 kg (195 lb 3.2 oz) Current Nutrition Therapies: Adult diet Easy to Chew; Low Sodium (2 gm) Current Oral Intake Average Meal Intake: 76-100% (no breakfast so far today) Average Supplements Intake: None Ordered Anthropometric Measures: Height: 175.3 cm (5' 9") Current Body Weight: 90.3 kg (199 lb) (bed scale today) Weight Source: Standing Scale Admission Body Weight: 91.6 kg (202 lb) Usual Body Weight: 90.7 kg (200 lb) (per pt report) % Weight Change (Calculated): -0.5 [place] Body Weight (lbs) (Calculated): 160 lbs [place] Body Weight (Kg) (Calculated): 73 kg % [place] Body Weight (Calculated): 124.4 % BMI (kg/m2) (Calculated): 29.4 Weight Adjustment For: No Adjustment BMI Categories: Overweight (BMI 25.0-29.9) Nutrition Diagnosis: Increased nutrient needs related to inadequate protein-energy intake as evidenced by mild loss of subcutaneous fat, mild muscle loss, poor intake prior to admission Biting/chewing (masticatory) difficulty; swallowing difficulty related to partial or complete edentulism as evidenced by pt report Nutrition Interventions: Nutrition Education/Counseling: No recommendation at this time Coordination of Nutrition Care: Continue to monitor while inpatient Plan of Care discussed with: Patient Goals: Goals: PO intake 75% or greater, by next RD assessment, other (specify) Specify Other Goals: Pt will tolerate meals without difficulty chewing/swallowing Nutrition Monitoring and Evaluation: Behavioral-Environmental Outcomes: None Identified Food/Nutrient Intake Outcomes: Food and Nutrient Intake, Supplement Intake Physical Signs/Symptoms Outcomes: Biochemical Data, Chewing or Swallowing, GI Status, Nausea or Vomiting, Fluid Status or Edema, Hemodynamic Status, Nutrition Focused Physical Findings, Skin, Weight Discharge Planning: Continue current diet, Continue Oral Nutrition Supplement aPloma Son RD Contact: *[phone] or via Secure Chat [facility] 09-12-2024 Consult note Associated Order (s): IP CONSULT TO DIETITIAN Nutrition Assessment Type and Reason for Visit: Initial, Consult Nutrition Recommendations/Plan: Per mnt protocol will modify diet to 2 gm sodium -less restrictive to help encourage PO intake given moderate malnutrition status at this time. Easy to Chew diet textures as pt reports difficulty chewing without teeth Suggest consult Speech therapy- pt reports vague difficulty swallowing Per mnt protocol will add Ensure Plus bid (350 kcals, 20g protein per serving) Please Encourage PO and record meal intakes in RN Flowsheet Suggest supplement Vit D if low RD to monitor PO intake, labs, weight, skin status -follow up weekly Malnutrition Assessment: Malnutrition Status: Moderate malnutrition (suspect severe however insufficent data at this time) Context: Acute Illness Findings of the 6 clinical characteristics of malnutrition: Energy Intake: 75% or less of estimated energy requirements for 7 or more days Weight Loss: Unable to assess (wt increase noted -edema LE) Body Fat Loss: Mild body fat loss Orbital, Triceps Muscle Mass Loss: Mild muscle mass loss Clavicles (pectoralis & deltoids), Temples (temporalis) Fluid Accumulation: Moderate to Severe (anasarca per records) Extremities 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 male admits with worsening SOB over past 3-7 days associated with increased leg into groin swelling. acute respiratory failure, HFrEF w/acute exacerbation COPD/chronic respiratory failure, anasarca, cirrhosis, alcohol abuse-now remission. Pt reports low appetite over past month with reported difficulty chewing/swallowing edentulous -difficult obtaining details due to fatigue and pt falling asleep. breakfast at bedside untouched pt reports no appetite. 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 bm 09/11. na 132, cr .71, bgluc 120, calcium 7.8, alkphos 160, alb 2.6, ast 77, bnp 9148. meds include farxiga, folic acid, lasix, aldactone Wound Type: None (dry skin feet noted) 09/11/24 92 kg (202 lb 12.8 oz) 08/19/24 88.5 kg (195 lb) 04/15/24 81.1 kg (178 lb 12.8 oz) 03/02/24 89 kg (196 lb 1.6 oz) 02/14/24 84 kg (185 lb 3 oz) 11/12/23 83.5 kg (184 lb) 01/08/23 89.8 kg (198 lb) 01/07/23 89.9 kg (198 lb 1.6 oz) 12/30/22 86.4 kg (190 lb 8 oz) 12/26/22 81.6 kg (180 lb) 09/19/22 88.5 kg (195 lb 3.2 oz) Current Nutrition Therapies: Adult diet Easy to Chew; Low Sodium (2 gm) Current Oral Intake Average Meal Intake: 76-100% (no breakfast so far today) Average Supplements Intake: None Ordered Anthropometric Measures: Height: 175.3 cm (5' 9") Current Body Weight: 90.3 kg (199 lb) (bed scale today) Weight Source: Standing Scale Admission Body Weight: 91.6 kg (202 lb) Usual Body Weight: 90.7 kg (200 lb) (per pt report) % Weight Change (Calculated): -0.5 [place] Body Weight (lbs) (Calculated): 160 lbs [place] Body Weight (Kg) (Calculated): 73 kg % [place] Body Weight (Calculated): 124.4 % BMI (kg/m2) (Calculated): 29.4 Weight Adjustment For: No Adjustment BMI Categories: Overweight (BMI 25.0-29.9) Nutrition Diagnosis: Increased nutrient needs related to inadequate protein-energy intake as evidenced by mild loss of subcutaneous fat, mild muscle loss, poor intake prior to admission Biting/chewing (masticatory) difficulty; swallowing difficulty related to partial or complete edentulism as evidenced by pt report Nutrition Interventions: Nutrition Education/Counseling: No recommendation at this time Coordination of Nutrition Care: Continue to monitor while inpatient Plan of Care discussed with: Patient Goals: Goals: PO intake 75% or greater, by next RD assessment, other (specify) Specify Other Goals: Pt will tolerate meals without difficulty chewing/swallowing Nutrition Monitoring and Evaluation: Behavioral-Environmental Outcomes: None Identified Food/Nutrient Intake Outcomes: Food and Nutrient Intake, Supplement Intake Physical Signs/Symptoms Outcomes: Biochemical Data, Chewing or Swallowing, GI Status, Nausea or Vomiting, Fluid Status or Edema, Hemodynamic Status, Nutrition Focused Physical Findings, Skin, Weight Discharge Planning: Continue current diet, Continue Oral Nutrition Supplement Paloma Son RD Contact: *[phone] or via Secure Chat documented in this encounter [facility] 09-12-2024 Nurse Note MTS notified that patient is refusing to wear lunchroom monitor [facility] 09-12-2024 Plan of care note Problem: Knowledge Deficit Goal: Patient/family/caregiver demonstrates understanding of disease process, treatment plan, medications, and discharge instructions Outcome: Progressing Problem: Hemodynamic Status Goal: Patient's vitals signs are stable Outcome: Progressing Problem: Excessive Fluid Volume Goal: Fluid and electrolyte balance are achieved/maintained Outcome: Progressing Problem: Inadequate Gas Exchange Goal: Patient is adequately oxygenated and ventilation is improved Outcome: Progressing Goal: Nutritional status is improving Outcome: Progressing Problem: Activity Intolerance/Impaired Mobility Goal: Mobility/activity is maintained at optimum level for patient Outcome: Progressing Problem: Nutrition Goal: Nutritional status is improving Outcome: Progressing [facility] 09-10-2024 Emergency department Note Pt ambulated in hallways to bathroom with a steady gait. Dinner tray to chair side. [facility] 09-10-2024 Emergency department Note Pt ambulated in hallways to bathroom with a steady gait. Dinner tray to chair side. Ambulated with portable spo2. Patient ambulated well and stayed above 93% [facility] ED EMERGENCY DEPARTMENT ENCOUNTER Pt Name: Krystina Markham Birthdate 1955 Date of evaluation: 09/10/2024 Provider: Charlie Mcintyre MD CHIEF COMPLAINT Chief Complaint Patient presents with Groin Swelling Leg Swelling Fatigue the swelling has been a problem for at least a month HISTORY OF PRESENT ILLNESS I wore proper PPE for the entirety of this encounter. Krystina Markham is a 69 y.o. male who presents to the emergency department with shortness of breath and leg swelling progressive over the last month. Patient also notes a dry cough. History of CHF and COPD on oxygen since his last admission in August. Denies chest pain. Per patient ex- who lives with the patient, the swelling is going from the legs into the groin/scrotum/penis and into the abdomen. Nursing Notes were reviewed. REVIEW OF SYSTEMS As above PAST MEDICAL HISTORY Past Medical History: Diagnosis Date Alcohol consumption heavy 09/10/2015 Asthma Atrial fibrillation (HCC) CHF (congestive heart failure) (HCC) 01/31/2016 COPD (chronic obstructive pulmonary disease) (HCC) 09/10/2015 Cor, pulmonale, acute (CMS/HCC) (HCC) Deep venous thrombosis (HCC) 02/2016 Depression Hx of blood clots Obesity 09/10/2015 DELORES (obstructive sleep apnea) Pulmonary embolus (HCC) 6 16 Raynaud phenomenon 09/10/2015 Smoker 09/10/2015 SURGICAL HISTORY Past Surgical History: Procedure Laterality Date ABDOMINAL SURGERY BRONCHOSCOPY 02/25/2020 BRONCHOSCOPY (HISTORICAL) 02/25/2020 COLONOSCOPY 10/27/[address] CHEST ANGIOGRAM W AND/OR WO IV CONTRAST 07/12/2022 CT CHEST ANGIOGRAM W AND/OR WO IV CONTRAST 07/12/2022 [facility] CT IMAGING FINGER AMPUTATION Left HERNIA REPAIR NOSE SURGERY CURRENT MEDICATIONS Previous Medications ALBUTEROL (2.5 MG/3ML) 0.083% NEBULIZER SOLUTION TAKE 3 MLS VIA NEBULIZATION ONCE NEEDED FOR WHEEZING OR SHORTNESS OF BREATH FOR UP TO 75 DOSES APIXABAN (ELIQUIS) 5 MG TABLET Take 1 tablet (5 mg) by mouth 2 times daily. ELIQUIS 5 MG TABLET Take 1 tablet (5 mg) by mouth 2 times daily. LCYUNDNGUOR-ERYSMGKHH-LJTJAW (TRELEGY ELLIPTA) 100-62.5-25 MCG/ACT AEROSOL POWDER Inhale 1 puff daily. JEEIULFRMGT-UVJUJNMBA-ATMNUD (TRELEGY ELLIPTA) 100-62.5-25 MCG/ACT AEROSOL POWDER Inhale 1 puff daily. FOLIC ACID (FOLVITE) 1 MG TABLET Take 1 mg by mouth. LOSARTAN (COZAAR) 25 MG TABLET Take 0.5 tablets (12.5 mg) by mouth daily. METOPROLOL SUCCINATE XL (TOPROL-XL) 100 MG 24 HR TABLET TAKE 1 TABLET (100 MG) BY MOUTH IN THE MORNING AND 1 TABLET (100 MG) BEFORE BEDTIME. DO NOT CRUSH OR CHEW.. MONTELUKAST (SINGULAIR) 10 MG TABLET TAKE 1 TABLET BY MOUTH EVERY EVENING ROSUVASTATIN (CRESTOR) 40 MG TABLET Take 40 mg by mouth daily. SERTRALINE (ZOLOFT) 100 MG TABLET Take 100 mg by mouth daily. SPIRONOLACTONE (ALDACTONE) 25 MG TABLET Take 1 tablet (25 mg) by mouth daily. TORSEMIDE (DEMADEX) 20 MG TABLET Take 20 mg by mouth 2 times daily. ALLERGIES Patient has no known allergies. FAMILY HISTORY Family History Problem Relation Name Age of Onset Asthma Father Congenital Anomaly Father Cancer Father Asthma Sister Heart disease Mother Heart disease Brother Pacemaker Mother Congenital Anomaly Sister Cancer Mother Diabetes Mother SOCIAL HISTORY Social History Socioeconomic History Marital status: Tobacco Use Smoking status: Former Current packs/day: 0.25 Average packs/day: 0.3 packs/day for 52.3 years (13.1 ttl pk-yrs) Types: Cigarettes Start date: 1972 Smokeless tobacco: Never Tobacco comments: 8 cig daily Substance and Sexual Activity Alcohol use: Not Currently Alcohol/week: 7.0 standard drinks of alcohol Types: 7 Cans of beer per week Comment: once beer daily Drug use: Never Social Drivers of Health Financial Resource Strain: Low Risk (08/21/2024) Overall Financial Resource Strain (CARDIA) Difficulty of Paying Living Expenses: Not very hard Food Insecurity: No Food Insecurity (08/21/2024) Hunger Vital Sign Worried About Running Out of Food in the Last Year: Never true Ran Out of Food in the Last Year: Never true Transportation Needs: No Transportation Needs (08/21/2024) PRAPARE - Transportation Lack of Transportation (Medical): No Lack of Transportation (Non-Medical): No Physical Activity: Inactive (08/21/2024) Exercise Vital Sign Days of Exercise per Week: 0 days Minutes of Exercise per Session: 0 min Stress: No Stress Concern Present (08/21/2024) Citizen Of [place] of Occupational Health - Occupational Stress Questionnaire Feeling of Stress : Not at all Social Connections: Socially Isolated (08/21/2024) Social Connection and Isolation Panel [NHANES] Frequency of Communication with Friends and Family: Three times a week Frequency of Social Gatherings with Friends and Family: Never Attends Zoroastrian Services: Never Active Member of Clubs or Organizations: No Attends Club or Organization Meetings: Never Marital Status: Intimate Partner Violence: Not At Risk (08/21/2024) Humiliation, Afraid, Rape, and Kick questionnaire Fear of Current or Ex-Partner: No Emotionally Abused: No Physically Abused: No Sexually Abused: No Housing Stability: Low Risk (08/21/2024) Housing Stability Vital Sign Unable to Pay for Housing in the Last Year: No Number of Times Moved in the Last Year: 0 Homeless in the Last Year: No SCREENINGS PHYSICAL EXAM ED Triage Vitals [09/10/24 1351] Temp Heart Rate Resp BP 37.4 C (99.3 F) 76 17 117/66 SpO2 Temp Source Heart Rate Source Patient Position 100 % Temporal Monitor -- BP Location FiO2 (%) -- -- Constitutional: No acute distress HEENT:Head: Atraumatic Eyes: Conjunctivae normal. ENT: Mucous membranes moist. CV: Irregular rhythm, regular rate. Radial pulses equal bilaterally. RESP: Faint expiratory wheezing bilaterally, good respiratory effort, no increased wob GI: Abdomen soft, non-tender, mildly distended, +BS, no guarding or rebound tenderness MSK: Normal bulk and tone, no gross deformity EXTR: Warm and well perfused, 2+ pitting bilateral lower extremity edema SKIN: No rash/bruising/erythema PSYCH: Appropriate affect, cooperative behavior NEURO: Alert, face symmetric, no slurred speech DIAGNOSTIC RESULTS Interpretation per the Radiologist below, if available at the time of this note: XR chest 1 view Final Result CHF with interstitial edema and pleural effusions. Report Dictated on Electronically Signed By: Shaun Wilson MD Electronically Signed Date/Time: 09/10/2024 3:03 PM EST LABS: Labs Reviewed BASIC METABOLIC PANEL - Abnormal Result Value SODIUM 135 (*) POTASSIUM 4.4 CHLORIDE 101 CARBON DIOXIDE 27 UREA NITROGEN 10 CREATININE 0.66 (*) GLUCOSE 87 CALCIUM 8.5 (*) ANION GAP 7 eGFR >90.0 CBC WITH AUTO DIFFERENTIAL - Abnormal Auto WBC 5.2 RBC 3.73 (*) Hemoglobin 11.6 (*) Hematocrit 35.4 (*) MCV 94.9 MCH 31.1 MCHC 32.8 RDW 14.8 Platelets 162 MPV 10.0 nRBC 0.0 Neutrophils Relative 70.6 Lymphocytes Relative 13.6 (*) Monocytes Relative 9.4 Eosinophils Relative 5.2 Basophils Relative 0.8 Immature Grans % 0.4 Neutrophils Absolute 3.7 Lymphocytes Absolute 0.7 (*) Monocytes Absolute 0.5 Eosinophils Absolute 0.3 Basophils Absolute 0.0 Immature Grans Absolute 0.0 HIGH SENSITIVITY TROPONIN, SERIAL BASELINE - Abnormal Troponin HS, Serial Baseline 37 (*) NT PRO BNP - Abnormal NT PRO BNP 9,148 (*) HEPATIC FUNCTION PANEL - Abnormal BILIRUBIN, TOTAL 1.0 BILIRUBIN, DIRECT 0.5 (*) ALKALINE PHOSPHATASE 212 (*) AST (SGOT) 62 (*) ALT 36 ALBUMIN 2.6 (*) TOTAL PROTEIN 6.3 (*) BLOOD GAS, VENOUS - Abnormal pH, Venous 7.307 (*) pCO2, Venous 63.6 (*) pO2, Venous 30.6 HCO3, Venous 31.1 (*) O2 Sat, Venous 53.1 Base Excess, Venous 3.2 (*) Hgb, blood gas 12.9 (*) TCO2, Venous 33.0 (*) Source Of Oxygen 2L Narrative: Assessment of oxygenation is best done with an arterial blood gas determination. Reference ranges for pO2, bicarbonate, and base excess are for mixed venous blood. Specimens drawn from a peripheral vein will often have higher values. HIGH SENSITIVITY TROPONIN, SERIAL, SECOND TEST - Abnormal Troponin HS, Serial Second 38 (*) Troponin HS Delta, Baseline to Second 1 MAGNESIUM - Normal MAGNESIUM 1.6 Narrative: Higher values can be expected in females during menses. 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 NOTE: This result is for medical treatment only. Analysis performed using non-forensic procedures. ETHYL GLUCURONIDE SCREEN, URINE CBC WITH AUTO DIFFERENTIAL COMPREHENSIVE METABOLIC PANEL WITH MG REFLEX Narrative: The following orders were created for panel order Comprehensive Metabolic Panel w/ Mg Reflex. Procedure Abnormality Status --------- ------ Comprehensive metabolic ...[[id number]] Please view results for these tests on the individual orders. COMPREHENSIVE METABOLIC PANEL EMERGENCY DEPARTMENT COURSE and DIFFERENTIAL DIAGNOSIS/MDM: Vitals: Vitals: 09/10/24 1351 09/10/24 1740 BP: 117/66 (!) 138/91 Pulse: 76 108 Resp: 17 20 Temp: 37.4 C (99.3 F) TempSrc: Temporal SpO2: 100% 95% Medications apixaban (Eliquis) tablet 5 mg (has no administration in time range) folic acid (Folvite) tablet 1 mg (1 mg Oral Given 09/10/24 190) losartan (Cozaar) tablet 12.5 mg (12.5 mg Oral Not Given 09/10/24 1835) metoprolol succinate XL (Toprol-XL) 24 hr tablet 100 mg (has no administration in time range) rosuvastatin (Crestor) tablet 40 mg ( Oral Unheld by provider 09/10/241843) sertraline (Zoloft) tablet 100 mg (100 mg Oral Given 09/10/241900) spironolactone (Aldactone) tablet 25 mg (25 mg Oral Not Given 09/10/241834) torsemide (Demadex) tablet 20 mg ( Oral Dose Auto Held 09/10/241834) nicotine (Nicoderm, Step 1) 21 MG/24HR patch 1 patch (1 patch TransDERmal Not Given 09/10/241834) acetaminophen (Tylenol) tablet 650 mg (has no administration in time range) Or acetaminophen (Tylenol) suppository 650 mg (has no administration in time range) ondansetron ODT (Zofran-ODT) disintegrating tablet 4 mg (has no administration in time range) Or ondansetron (Zofran) injection 4 mg (has no administration in time range) polyethylene glycol (PEG) 3350 (Miralax) packet 17 g (has no administration in time range) dapagliflozin (Farxiga) tablet 5 mg (5 mg Oral Given 09/10/241900) mometasone-formoterol (Dulera 200) 200-5 MCG/ACT inhaler 2 puff (has no administration in time range) tiotropium (Spiriva Respimat) 2.5 MCG/ACT inhaler 2 puff (has no administration in time range) ipratropium-albuterol (Duo-Neb) 0.5-2.5 mg/3 mL nebulizer solution 3 mL (3 mL Nebulization Given 09/10/24 192) furosemide (Lasix) injection 40 mg (has no administration in time range) ipratropium-albuterol (Duo-Neb) 0.5-2.5 mg/3 mL nebulizer solution 3 mL (3 mL Nebulization Given 09/10/24 1415) furosemide (Lasix) injection 40 mg (40 mg IntraVENous Given 09/10/24 1544) ipratropium-albuterol (Duo-Neb) 0.5-2.5 mg/3 mL nebulizer solution 3 mL (3 mL Nebulization Given 09/10/24 174) methylPREDNISolone sodium succinate (PF) (SOLU-Medrol) injection 40 mg (40 mg IntraVENous Given 09/10/24 1741) furosemide (Lasix) injection 40 mg (40 mg IntraVENous Given 09/10/24 1831) I personally saw the patient and performed a substantive portion of the visit including all aspects of the medical decision making. Patient appears nontoxic. Vital signs are normal on nasal cannula oxygen. CBC with no leukocytosis. BMP is overall unremarkable. LFTs show slight elevations in alk phos, AST. High-sensitivity troponin is initially slightly elevated at 37 and then essentially unchanged on repeat to 38. proBNP is elevated at 9000 though actually somewhat lower than prior. Chest x-ray shows pulmonary edema and some small pleural effusions on my interpretation and also on the radiologist final interpretation. Patient given Lasix 40 mg IV. Also given DuoNeb and methylprednisolone IV for likely mild COPD exacerbation. I discussed with the [facility] resident who evaluated the patient in the ER. Patient was admitted. Diagnoses as of 09/10/241927 Acute on chronic congestive heart failure, unspecified heart failure type (HCC) PROCEDURES: Unless otherwise noted below, none Procedures Patients symptoms are consistent with sepsis, severe sepsis, or septic shock (If yes use ".sepsiscoremeasure"): no FINAL IMPRESSION 1. Acute on chronic congestive heart failure, unspecified heart failure type (HCC) DISPOSITION/PLAN Admit 09/10/2024 06:31:48 PM PATIENT REFERRED TO: No follow-up provider specified. DISCHARGE MEDICATIONS: New Prescriptions No medications on file (Please note: Portions of this note were completed with a voice recognition program. Efforts were made to edit the dictations but occasionally words and phrases are mis-transcribed.) Charlie Mcintyre MD [facility] Emergency Medicine Physician Acute Care [facility] Charlie Mcintyre MD 09/10/241927 documented in this encounter [facility] 09-10-2024 History and physical note Images from the original note were not included. Medical Teaching Service History & Physical Patient: Krystina Markham : 1955 Acct: [id number] PCP: Pedro Subramanian MD Admitting Physician: No admitting provider for patient encounter. Admission Date: 09/10/2024 Chief Complaint Patient presents with Groin Swelling Leg Swelling Fatigue the swelling has been a problem for at least a month History of Presenting Illness: 69 y.o. male Patient was brought in to the ED due to shortness of breath at rest and exertion. He has leg swelling which has bene occurring for a month. He has a dry cough and a PMH of CHF , COPD and on oxygen. On past visits per ED notes, swelling occurs from the legs into the groin and abdomen. He is a poor historian and his ex- was not present. Denies alcohol use. He denies light headedness. Chest pain and chest tightness. He is able to ambulate with his portable oxygen He is voiding appropriately Past Medical History: Diagnosis Date Alcohol consumption heavy 09/10/2015 Asthma Atrial fibrillation ([facility]) CHF (congestive heart failure) ([facility]) 01/31/2016 COPD (chronic obstructive pulmonary disease) ([facility]) 09/10/2015 Cor, pulmonale, acute (CMS/HCC) ([facility]) Deep venous thrombosis ([facility]) 02/2016 Depression Hx of blood clots Obesity 09/10/2015 DELORES (obstructive sleep apnea) Pulmonary embolus ([facility]) 6 16 Raynaud phenomenon 09/10/2015 Smoker 09/10/2015 Past Surgical History: Procedure Laterality Date ABDOMINAL SURGERY BRONCHOSCOPY 02/25/2020 BRONCHOSCOPY (HISTORICAL) 02/25/2020 COLONOSCOPY 10/27/[address] CHEST ANGIOGRAM W AND/OR WO IV CONTRAST 07/12/2022 CT CHEST ANGIOGRAM W AND/OR WO IV CONTRAST 07/12/2022 [facility] CT IMAGING FINGER AMPUTATION Left HERNIA REPAIR NOSE SURGERY Social History Socioeconomic History Marital status: Spouse name: Not on file Number of children: Not on file Years of education: Not on file Highest education level: Not on file Occupational History Not on file Tobacco Use Smoking status: Former Current packs/day: 0.25 Average packs/day: 0.3 packs/day for 52.3 years (13.1 ttl pk-yrs) Types: Cigarettes Start date: 1972 Smokeless tobacco: Never Tobacco comments: 8 cig daily Substance and Sexual Activity Alcohol use: Not Currently Alcohol/week: 7.0 standard drinks of alcohol Types: 7 Cans of beer per week Comment: once beer daily Drug use: Never Sexual activity: Not on file Other Topics Concern Not on file Social History Narrative Not on file Social Drivers of Health Financial Resource Strain: Low Risk (08/21/2024) Overall Financial Resource Strain (CARDIA) Difficulty of Paying Living Expenses: Not very hard Food Insecurity: No Food Insecurity (08/21/2024) Hunger Vital Sign Worried About Running Out of Food in the Last Year: Never true Ran Out of Food in the Last Year: Never true Transportation Needs: No Transportation Needs (08/21/2024) PRAPARE - Transportation Lack of Transportation (Medical): No Lack of Transportation (Non-Medical): No Physical Activity: Inactive (08/21/2024) Exercise Vital Sign Days of Exercise per Week: 0 days Minutes of Exercise per Session: 0 min Stress: No Stress Concern Present (08/21/2024) Citizen Of [place] of Occupational Health - Occupational Stress Questionnaire Feeling of Stress : Not at all Social Connections: Socially Isolated (08/21/2024) Social Connection and Isolation Panel [NHANES] Frequency of Communication with Friends and Family: Three times a week Frequency of Social Gatherings with Friends and Family: Never Attends Zoroastrian Services: Never Active Member of Clubs or Organizations: No Attends Club or Organization Meetings: Never Marital Status: Intimate Partner Violence: Not At Risk (08/21/2024) Humiliation, Afraid, Rape, and Kick questionnaire Fear of Current or Ex-Partner: No Emotionally Abused: No Physically Abused: No Sexually Abused: No Housing Stability: Low Risk (08/21/2024) Housing Stability Vital Sign Unable to Pay for Housing in the Last Year: No Number of Times Moved in the Last Year: 0 Homeless in the Last Year: No Family History Problem Relation Name Age of Onset Asthma Father Congenital Anomaly Father Cancer Father Asthma Sister Heart disease Mother Heart disease Brother Pacemaker Mother Congenital Anomaly Sister Cancer Mother Diabetes Mother No current facility-administered medications on file prior to encounter. Current Outpatient Medications on File Prior to Encounter Medication Sig Dispense Refill albuterol (2.5 MG/3ML) 0.083% nebulizer solution TAKE 3 MLS VIA NEBULIZATION ONCE NEEDED FOR WHEEZING OR SHORTNESS OF BREATH FOR UP TO 75 DOSES 75 mL 2 apixaban (Eliquis) 5 MG tablet Take 1 tablet (5 mg) by mouth 2 times daily. 60 tablet 11 [] doxycycline (Vibramycin) 100 MG capsule Take 1 capsule (100 mg) by mouth 2 times daily for 10 days. Take with at least 8 ounces (large glass) of water, do not lie down for 30 minutes after 20 capsule 0 Eliquis 5 MG tablet Take 1 tablet (5 mg) by mouth 2 times daily. 60 tablet 2 Fpnxtwpnwyj-Wsnviguoq-Hljhsv (Trelegy Ellipta) 100-62.5-25 MCG/ACT aerosol powder Inhale 1 puff daily. 2 each 0 Ythpkhmymia-Bjvjicmdn-Zttsyi (Trelegy Ellipta) 100-62.5-25 MCG/ACT aerosol powder Inhale 1 puff daily. 2 each 0 folic acid (Folvite) 1 MG tablet Take 1 mg by mouth. losartan (Cozaar) 25 MG tablet Take 0.5 tablets (12.5 mg) by mouth daily. 15 tablet 5 metoprolol succinate XL (Toprol-XL) 100 MG 24 hr tablet TAKE 1 TABLET (100 MG) BY MOUTH IN THE MORNING AND 1 TABLET (100 MG) BEFORE BEDTIME. DO NOT CRUSH OR CHEW.. 180 tablet 0 montelukast (Singulair) 10 MG tablet TAKE 1 TABLET BY MOUTH EVERY EVENING 90 tablet 0 rosuvastatin (Crestor) 40 MG tablet Take 40 mg by mouth daily. sertraline (Zoloft) 100 MG tablet Take 100 mg by mouth daily. spironolactone (Aldactone) 25 MG tablet Take 1 tablet (25 mg) by mouth daily. 30 tablet 5 torsemide (Demadex) 20 MG tablet Take 20 mg by mouth 2 times daily. Allergies: Patient has no known allergies. Review of Systems Constitutional: Negative for chills, fatigue and fever. HENT: Negative for congestion, rhinorrhea, sinus pain, sneezing and sore throat. Respiratory: Positive for cough, shortness of breath and wheezing. Negative for choking and chest tightness. Cardiovascular: Positive for leg swelling. Negative for chest pain and palpitations. Gastrointestinal: Negative for abdominal pain, blood in stool, constipation, diarrhea and nausea. Genitourinary: Negative for difficulty urinating, frequency and hematuria. Neurological: Negative for dizziness, light-headedness, numbness and headaches. Vitals: Vitals: 09/10/24 1351 09/10/24 1740 BP: 117/66 (!) 138/91 Pulse: 76 108 Resp: 17 20 Temp: 37.4 C (99.3 F) TempSrc: Temporal SpO2: 100% 95% Physical Exam Constitutional: General: He is not in acute distress. Appearance: Normal appearance. He is obese. He is ill-appearing and toxic-appearing. He is not diaphoretic. HENT: Head: Normocephalic and atraumatic. Nose: No congestion or rhinorrhea. Cardiovascular: Rate and Rhythm: Normal rate and regular rhythm. Pulses: Normal pulses. Heart sounds: Normal heart sounds. Pulmonary: Effort: Pulmonary effort is normal. No respiratory distress. Breath sounds: Wheezing present. No rales. Chest: Chest wall: No tenderness. Abdominal: General: Abdomen is flat. Bowel sounds are normal. There is no distension. Palpations: Abdomen is soft. Tenderness: There is no abdominal tenderness. Musculoskeletal: General: Swelling present. Cervical back: No rigidity or tenderness. Neurological: General: No focal deficit present. Mental Status: He is alert and oriented to person, place, and time. Labs: Results for orders placed or performed during the hospital encounter of 09/10/24 ECG 12 lead Collection Time: 09/10/24 2:18 PM Result Value Ref Range Heart Rate 75 bpm QRSD Interval 168 ms QT Interval 488 ms QTC Interval 546 ms P [place] 0 degrees QRS [place] 211 degrees T Wave [place] 54 degrees [place] Interval 0 ms Basic metabolic panel Collection Time: 09/10/24 2:35 PM Result Value Ref Range SODIUM 135 (L) 136 - 145 mmol/L POTASSIUM 4.4 3.5 - 5.1 mmol/L CHLORIDE 101 98 - 107 mmol/L CARBON DIOXIDE 27 23 - 31 mmol/L UREA NITROGEN 10 9 - 23 mg/dL CREATININE 0.66 (L) 0.72 - 1.25 mg/dL GLUCOSE 87 82 - 115 mg/dL CALCIUM 8.5 (L) 8.8 - 10.0 mg/dL ANION GAP 7 3 - 13 mmol/L eGFR >90.0 >60.0 mL/min/1.73m*2 CBC auto differential Collection Time: 09/10/24 2:35 PM Result Value Ref Range Auto WBC 5.2 3.6 - 10.7 10*3/uL RBC 3.73 (L) 4.40 - 5.90 10*6/uL Hemoglobin 11.6 (L) 13.0 - 18.0 g/dL Hematocrit 35.4 (L) 40.0 - 52.0 % MCV 94.9 77.0 - 99.0 fL MCH 31.1 26.0 - 34.0 pg MCHC 32.8 30.5 - 36.0 % RDW 14.8 11.5 - 15.0 % Platelets 162 140 - 440 10*3/uL MPV 10.0 9.0 - 12.7 fL nRBC 0.0 0.0 - 2.0 /100 WBCs Neutrophils Relative 70.6 38.0 - 82.0 % Lymphocytes Relative 13.6 (L) 15.0 - 45.0 % Monocytes Relative 9.4 5.0 - 13.0 % Eosinophils Relative 5.2 0.0 - 6.0 % Basophils Relative 0.8 0.0 - 2.0 % Immature Grans % 0.4 0.0 - 2.0 % Neutrophils Absolute 3.7 1.8 - 7.5 10*3/uL Lymphocytes Absolute 0.7 (L) 1.0 - 4.3 10*3/uL Monocytes Absolute 0.5 0.0 - 0.9 10*3/uL Eosinophils Absolute 0.3 0.0 - 0.5 10*3/uL Basophils Absolute 0.0 0.0 - 0.2 10*3/uL Immature Grans Absolute 0.0 <0.1 10*3/uL Serial Troponin, High Sensitivity Collection Time: 09/10/24 2:35 PM Result Value Ref Range Troponin HS, Serial Baseline 37 (H) <=35 ng/L Magnesium *ACC Recommendation* Collection Time: 09/10/24 2:35 PM Result Value Ref Range MAGNESIUM 1.6 1.6 - 2.6 mg/dL NT PRO BNP Collection Time: 09/10/24 2:35 PM Result Value Ref Range NT PRO BNP 9,148 (H) <125 pg/mL Hepatic function panel Collection Time: 09/10/24 2:35 PM Result Value Ref Range BILIRUBIN, TOTAL 1.0 <1.2 mg/dL BILIRUBIN, DIRECT 0.5 (H) <0.5 mg/dL ALKALINE PHOSPHATASE 212 (H) 40 - 150 U/L AST (SGOT) 62 (H) <34 U/L ALT 36 <40 U/L ALBUMIN 2.6 (L) 3.4 - 4.8 g/dL TOTAL PROTEIN 6.3 (L) 6.4 - 8.3 g/dL Blood gas, venous (ACH and SB[facility]) Collection Time: 09/10/24 2:35 PM Result Value Ref Range pH, Venous 7.307 (L) 7.320 - 7.420 pCO2, Venous 63.6 (H) 38.0 - 56.0 mm Hg pO2, Venous 30.6 mm Hg HCO3, Venous 31.1 (H) 21.0 - 30.0 mmol/L O2 Sat, Venous 53.1 % Base Excess, Venous 3.2 (H) -3.0 - 3.0 mmol/L Hgb, blood gas 12.9 (L) Screen only g/dl TCO2, Venous 33.0 (H) 23.0 - 30.0 mmol/L Source Of Oxygen 2L Radiology review: XR chest 1 view Impression: CHF with interstitial edema and pleural effusions. ECG 12 lead Atrial fibrillation Ventricular premature complex Left bundle branch block ST elevation secondary to IVCD ED medications: Medications ipratropium-albuterol (Duo-Neb) 0.5-2.5 mg/3 mL nebulizer solution 3 mL (3 mL Nebulization Given 09/10/24 1415) furosemide (Lasix) injection 40 mg (40 mg IntraVENous Given 09/10/24 1544) ipratropium-albuterol (Duo-Neb) 0.5-2.5 mg/3 mL nebulizer solution 3 mL (3 mL Nebulization Given 09/10/24 1741) methylPREDNISolone sodium succinate (PF) (SOLU-Medrol) injection 40 mg (40 mg IntraVENous Given 09/10/24 1741) ED COURSE: IV lasix 40 mg x2 , Duo nebs x2 , Methylprednisolone 40 mg Imaging: CXR ASSESSMENT/PLAN: Dyspnea with Bilateral pitting edema with dyspnea 2/2 HFrEF exacerbation, Biventricular ICD in place 07/2022 Echo 11/2023 EF 21%, Global hypokinesis, RVSP is 47 mmHg. BNP 9,148 CXR - interstitial edema and pleural effusions - Admit to tele - lasix 40 mg IV daily - strict I/o - metoprolol succinate 100 mg BID - Medications: - Spironolactone 25 mg - titrate up as tolerated - torsemide 20 mg daily hold while on IV lasix - losartan 12.5 mg daily - Start Farxiga 5 mg - daily labs cbc, cmp, mg, ph - PT/OT - possible placement -SW/CM COPD - Not on Home oxygen , consider home 02 eval - Home inhalers : Dulera and [place] - PRN duonebs - Nicotine patch Elevated Troponin in setting of CHF exacerbation Troponin HS 37 - Continue to monitor - follow up Serial troponin Risk for delirium Debility - delirium protocol - fall precautions Alcohol abuse at risk for withdrawal Elevated LFT - Ethanol gluco - Initia CIWA protocl if positive for alchol - seizure precautions - monitor LFTs Atrial fibrillation Hasbled: 2 (age and alcohol use) moderate risk for major bleeding - rate controlled - apixaban 5 mg BID - - metoprolol succinate 100mg BID Pulmonary HTN DELORES - autopap therapy CAD - no longer take rosuvastatin Tobacco use - nicotine patch Raynaud phenomenon vs Buerger's - keep extremities warm as needed - advise smoking cessation hx of non-compliance with medical care and poor outpatient follow up. FEN/GI/DVT: IVF: None Electrolytes: Monitor and replace per protocols Diet: Cardiac GI PPX: No DVT Prophylaxis: No prophylaxis/Already on anticoagulation: Eliquis CODE STATUS: Full Problem list completed - Yes Case discussed with: Dr Ezio Hopper MD Pager #: [phone] 09/10/2024 6:15 PM Cosigned by Sophie Valadez MD at 09/11/2024 9:07 AM EST [facility] 09-10-2024 Note [facility] 09-10-2024 History and physical note Images from the original note were not included. Medical Teaching Service History & Physical Patient: Krystina Markham : 1955 Acct: [id number] PCP: Pedro Subramanian MD Admitting Physician: No admitting provider for patient encounter. Admission Date: 09/10/2024 Chief Complaint Patient presents with Groin Swelling Leg Swelling Fatigue the swelling has been a problem for at least a month History of Presenting Illness: 69 y.o. male Patient was brought in to the ED due to shortness of breath at rest and exertion. He has leg swelling which has bene occurring for a month. He has a dry cough and a PMH of CHF , COPD and on oxygen. On past visits per ED notes, swelling occurs from the legs into the groin and abdomen. He is a poor historian and his ex- was not present. Denies alcohol use. He denies light headedness. Chest pain and chest tightness. He is able to ambulate with his portable oxygen He is voiding appropriately Past Medical History: Diagnosis Date Alcohol consumption heavy 09/10/2015 Asthma Atrial fibrillation (HCC) CHF (congestive heart failure) ([facility]) 01/31/2016 COPD (chronic obstructive pulmonary disease) ([facility]) 09/10/2015 Cor, pulmonale, acute (CMS/HCC) (HCC) Deep venous thrombosis (HCC) 02/2016 Depression Hx of blood clots Obesity 09/10/2015 DELORES (obstructive sleep apnea) Pulmonary embolus ([facility]) 6 16 Raynaud phenomenon 09/10/2015 Smoker 09/10/2015 Past Surgical History: Procedure Laterality Date ABDOMINAL SURGERY BRONCHOSCOPY 02/25/2020 BRONCHOSCOPY (HISTORICAL) 02/25/2020 COLONOSCOPY 10/27/[address] CHEST ANGIOGRAM W AND/OR WO IV CONTRAST 07/12/2022 CT CHEST ANGIOGRAM W AND/OR WO IV CONTRAST 07/12/2022 [facility] CT IMAGING FINGER AMPUTATION Left HERNIA REPAIR NOSE SURGERY Social History Socioeconomic History Marital status: Spouse name: Not on file Number of children: Not on file Years of education: Not on file Highest education level: Not on file Occupational History Not on file Tobacco Use Smoking status: Former Current packs/day: 0.25 Average packs/day: 0.3 packs/day for 52.3 years (13.1 ttl pk-yrs) Types: Cigarettes Start date: 1972 Smokeless tobacco: Never Tobacco comments: 8 cig daily Substance and Sexual Activity Alcohol use: Not Currently Alcohol/week: 7.0 standard drinks of alcohol Types: 7 Cans of beer per week Comment: once beer daily Drug use: Never Sexual activity: Not on file Other Topics Concern Not on file Social History Narrative Not on file Social Drivers of Health Financial Resource Strain: Low Risk (08/21/2024) Overall Financial Resource Strain (CARDIA) Difficulty of Paying Living Expenses: Not very hard Food Insecurity: No Food Insecurity (08/21/2024) Hunger Vital Sign Worried About Running Out of Food in the Last Year: Never true Ran Out of Food in the Last Year: Never true Transportation Needs: No Transportation Needs (08/21/2024) PRAPARE - Transportation Lack of Transportation (Medical): No Lack of Transportation (Non-Medical): No Physical Activity: Inactive (08/21/2024) Exercise Vital Sign Days of Exercise per Week: 0 days Minutes of Exercise per Session: 0 min Stress: No Stress Concern Present (08/21/2024) Citizen Of [place] of Occupational Health - Occupational Stress Questionnaire Feeling of Stress : Not at all Social Connections: Socially Isolated (08/21/2024) Social Connection and Isolation Panel [NHANES] Frequency of Communication with Friends and Family: Three times a week Frequency of Social Gatherings with Friends and Family: Never Attends Zoroastrian Services: Never Active Member of Clubs or Organizations: No Attends Club or Organization Meetings: Never Marital Status: Intimate Partner Violence: Not At Risk (08/21/2024) Humiliation, Afraid, Rape, and Kick questionnaire Fear of Current or Ex-Partner: No Emotionally Abused: No Physically Abused: No Sexually Abused: No Housing Stability: Low Risk (08/21/2024) Housing Stability Vital Sign Unable to Pay for Housing in the Last Year: No Number of Times Moved in the Last Year: 0 Homeless in the Last Year: No Family History Problem Relation Name Age of Onset Asthma Father Congenital Anomaly Father Cancer Father Asthma Sister Heart disease Mother Heart disease Brother Pacemaker Mother Congenital Anomaly Sister Cancer Mother Diabetes Mother No current facility-administered medications on file prior to encounter. Current Outpatient Medications on File Prior to Encounter Medication Sig Dispense Refill albuterol (2.5 MG/3ML) 0.083% nebulizer solution TAKE 3 MLS VIA NEBULIZATION ONCE NEEDED FOR WHEEZING OR SHORTNESS OF BREATH FOR UP TO 75 DOSES 75 mL 2 apixaban (Eliquis) 5 MG tablet Take 1 tablet (5 mg) by mouth 2 times daily. 60 tablet 11 [] doxycycline (Vibramycin) 100 MG capsule Take 1 capsule (100 mg) by mouth 2 times daily for 10 days. Take with at least 8 ounces (large glass) of water, do not lie down for 30 minutes after 20 capsule 0 Eliquis 5 MG tablet Take 1 tablet (5 mg) by mouth 2 times daily. 60 tablet 2 Lsxrkhcztfg-Sccibeaxy-Otdbgu (Trelegy Ellipta) 100-62.5-25 MCG/ACT aerosol powder Inhale 1 puff daily. 2 each 0 Tjtbawnutwn-Nkblhwshn-Wxtdqj (Trelegy Ellipta) 100-62.5-25 MCG/ACT aerosol powder Inhale 1 puff daily. 2 each 0 folic acid (Folvite) 1 MG tablet Take 1 mg by mouth. losartan (Cozaar) 25 MG tablet Take 0.5 tablets (12.5 mg) by mouth daily. 15 tablet 5 metoprolol succinate XL (Toprol-XL) 100 MG 24 hr tablet TAKE 1 TABLET (100 MG) BY MOUTH IN THE MORNING AND 1 TABLET (100 MG) BEFORE BEDTIME. DO NOT CRUSH OR CHEW.. 180 tablet 0 montelukast (Singulair) 10 MG tablet TAKE 1 TABLET BY MOUTH EVERY EVENING 90 tablet 0 rosuvastatin (Crestor) 40 MG tablet Take 40 mg by mouth daily. sertraline (Zoloft) 100 MG tablet Take 100 mg by mouth daily. spironolactone (Aldactone) 25 MG tablet Take 1 tablet (25 mg) by mouth daily. 30 tablet 5 torsemide (Demadex) 20 MG tablet Take 20 mg by mouth 2 times daily. Allergies: Patient has no known allergies. Review of Systems Constitutional: Negative for chills, fatigue and fever. HENT: Negative for congestion, rhinorrhea, sinus pain, sneezing and sore throat. Respiratory: Positive for cough, shortness of breath and wheezing. Negative for choking and chest tightness. Cardiovascular: Positive for leg swelling. Negative for chest pain and palpitations. Gastrointestinal: Negative for abdominal pain, blood in stool, constipation, diarrhea and nausea. Genitourinary: Negative for difficulty urinating, frequency and hematuria. Neurological: Negative for dizziness, light-headedness, numbness and headaches. Vitals: Vitals: 09/10/24 1351 09/10/24 1740 BP: 117/66 (!) 138/91 Pulse: 76 108 Resp: 17 20 Temp: 37.4 C (99.3 F) TempSrc: Temporal SpO2: 100% 95% Physical Exam Constitutional: General: He is not in acute distress. Appearance: Normal appearance. He is obese. He is ill-appearing and toxic-appearing. He is not diaphoretic. HENT: Head: Normocephalic and atraumatic. Nose: No congestion or rhinorrhea. Cardiovascular: Rate and Rhythm: Normal rate and regular rhythm. Pulses: Normal pulses. Heart sounds: Normal heart sounds. Pulmonary: Effort: Pulmonary effort is normal. No respiratory distress. Breath sounds: Wheezing present. No rales. Chest: Chest wall: No tenderness. Abdominal: General: Abdomen is flat. Bowel sounds are normal. There is no distension. Palpations: Abdomen is soft. Tenderness: There is no abdominal tenderness. Musculoskeletal: General: Swelling present. Cervical back: No rigidity or tenderness. Neurological: General: No focal deficit present. Mental Status: He is alert and oriented to person, place, and time. Labs: Results for orders placed or performed during the hospital encounter of 09/10/24 ECG 12 lead Collection Time: 09/10/24 2:18 PM Result Value Ref Range Heart Rate 75 bpm QRSD Interval 168 ms QT Interval 488 ms QTC Interval 546 ms P [place] 0 degrees QRS [place] 211 degrees T Wave [place] 54 degrees [place] Interval 0 ms Basic metabolic panel Collection Time: 09/10/24 2:35 PM Result Value Ref Range SODIUM 135 (L) 136 - 145 mmol/L POTASSIUM 4.4 3.5 - 5.1 mmol/L CHLORIDE 101 98 - 107 mmol/L CARBON DIOXIDE 27 23 - 31 mmol/L UREA NITROGEN 10 9 - 23 mg/dL CREATININE 0.66 (L) 0.72 - 1.25 mg/dL GLUCOSE 87 82 - 115 mg/dL CALCIUM 8.5 (L) 8.8 - 10.0 mg/dL ANION GAP 7 3 - 13 mmol/L eGFR >90.0 >60.0 mL/min/1.73m*2 CBC auto differential Collection Time: 09/10/24 2:35 PM Result Value Ref Range Auto WBC 5.2 3.6 - 10.7 10*3/uL RBC 3.73 (L) 4.40 - 5.90 10*6/uL Hemoglobin 11.6 (L) 13.0 - 18.0 g/dL Hematocrit 35.4 (L) 40.0 - 52.0 % MCV 94.9 77.0 - 99.0 fL MCH 31.1 26.0 - 34.0 pg MCHC 32.8 30.5 - 36.0 % RDW 14.8 11.5 - 15.0 % Platelets 162 140 - 440 10*3/uL MPV 10.0 9.0 - 12.7 fL nRBC 0.0 0.0 - 2.0 /100 WBCs Neutrophils Relative 70.6 38.0 - 82.0 % Lymphocytes Relative 13.6 (L) 15.0 - 45.0 % Monocytes Relative 9.4 5.0 - 13.0 % Eosinophils Relative 5.2 0.0 - 6.0 % Basophils Relative 0.8 0.0 - 2.0 % Immature Grans % 0.4 0.0 - 2.0 % Neutrophils Absolute 3.7 1.8 - 7.5 10*3/uL Lymphocytes Absolute 0.7 (L) 1.0 - 4.3 10*3/uL Monocytes Absolute 0.5 0.0 - 0.9 10*3/uL Eosinophils Absolute 0.3 0.0 - 0.5 10*3/uL Basophils Absolute 0.0 0.0 - 0.2 10*3/uL Immature Grans Absolute 0.0 <0.1 10*3/uL Serial Troponin, High Sensitivity Collection Time: 09/10/24 2:35 PM Result Value Ref Range Troponin HS, Serial Baseline 37 (H) <=35 ng/L Magnesium *ACC Recommendation* Collection Time: 09/10/24 2:35 PM Result Value Ref Range MAGNESIUM 1.6 1.6 - 2.6 mg/dL NT PRO BNP Collection Time: 09/10/24 2:35 PM Result Value Ref Range NT PRO BNP 9,148 (H) <125 pg/mL Hepatic function panel Collection Time: 09/10/24 2:35 PM Result Value Ref Range BILIRUBIN, TOTAL 1.0 <1.2 mg/dL BILIRUBIN, DIRECT 0.5 (H) <0.5 mg/dL ALKALINE PHOSPHATASE 212 (H) 40 - 150 U/L AST (SGOT) 62 (H) <34 U/L ALT 36 <40 U/L ALBUMIN 2.6 (L) 3.4 - 4.8 g/dL TOTAL PROTEIN 6.3 (L) 6.4 - 8.3 g/dL Blood gas, venous (ACH and SB[facility]) Collection Time: 09/10/24 2:35 PM Result Value Ref Range pH, Venous 7.307 (L) 7.320 - 7.420 pCO2, Venous 63.6 (H) 38.0 - 56.0 mm Hg pO2, Venous 30.6 mm Hg HCO3, Venous 31.1 (H) 21.0 - 30.0 mmol/L O2 Sat, Venous 53.1 % Base Excess, Venous 3.2 (H) -3.0 - 3.0 mmol/L Hgb, blood gas 12.9 (L) Screen only g/dl TCO2, Venous 33.0 (H) 23.0 - 30.0 mmol/L Source Of Oxygen 2L Radiology review: XR chest 1 view Impression: CHF with interstitial edema and pleural effusions. ECG 12 lead Atrial fibrillation Ventricular premature complex Left bundle branch block ST elevation secondary to IVCD ED medications: Medications ipratropium-albuterol (Duo-Neb) 0.5-2.5 mg/3 mL nebulizer solution 3 mL (3 mL Nebulization Given 09/10/24 1415) furosemide (Lasix) injection 40 mg (40 mg IntraVENous Given 09/10/24 1544) ipratropium-albuterol (Duo-Neb) 0.5-2.5 mg/3 mL nebulizer solution 3 mL (3 mL Nebulization Given 09/10/24 1741) methylPREDNISolone sodium succinate (PF) (SOLU-Medrol) injection 40 mg (40 mg IntraVENous Given 09/10/24 1741) ED COURSE: IV lasix 40 mg x2 , Duo nebs x2 , Methylprednisolone 40 mg Imaging: CXR ASSESSMENT/PLAN: Dyspnea with Bilateral pitting edema with dyspnea 2/2 HFrEF exacerbation, Biventricular ICD in place 07/2022 Echo 11/2023 EF 21%, Global hypokinesis, RVSP is 47 mmHg. BNP 9,148 CXR - interstitial edema and pleural effusions - Admit to tele - lasix 40 mg IV daily - strict I/o - metoprolol succinate 100 mg BID - Medications: - Spironolactone 25 mg - titrate up as tolerated - torsemide 20 mg daily hold while on IV lasix - losartan 12.5 mg daily - Start Farxiga 5 mg - daily labs cbc, cmp, mg, ph - PT/OT - possible placement -/ COPD - Not on Home oxygen , consider home 02 eval - Home inhalers : Dulera and [place] - PRN duonebs - Nicotine patch Elevated Troponin in setting of CHF exacerbation Troponin HS 37 - Continue to monitor - follow up Serial troponin Risk for delirium Debility - delirium protocol - fall precautions Alcohol abuse at risk for withdrawal Elevated LFT - Ethanol gluco - Initia CIWA protocl if positive for alchol - seizure precautions - monitor LFTs Atrial fibrillation Hasbled: 2 (age and alcohol use) moderate risk for major bleeding - rate controlled - apixaban 5 mg BID - - metoprolol succinate 100mg BID Pulmonary HTN DELORES - autopap therapy CAD - no longer take rosuvastatin Tobacco use - nicotine patch Raynaud phenomenon vs Buerger's - keep extremities warm as needed - advise smoking cessation hx of non-compliance with medical care and poor outpatient follow up. FEN/GI/DVT: IVF: None Electrolytes: Monitor and replace per protocols Diet: Cardiac GI PPX: No DVT Prophylaxis: No prophylaxis/Already on anticoagulation: Eliquis CODE STATUS: Full Problem list completed - Yes Case discussed with: Dr Ezio Hopper MD Pager #: [phone] 09/10/2024 6:15 PM Cosigned by Sophie Valadez MD at 09/11/2024 9:07 AM EST documented in this encounter [facility] 09-10-2024 Emergency department Note Ambulated with portable spo2. Patient ambulated well and stayed above 93% [facility] 09-10-2024 Physician Emergency department Note [facility] ED EMERGENCY DEPARTMENT ENCOUNTER Pt Name: Krystina Markham Birthdate 1955 Date of evaluation: 09/10/2024 Provider: Charlie Mcintyre MD CHIEF COMPLAINT Chief Complaint Patient presents with Groin Swelling Leg Swelling Fatigue the swelling has been a problem for at least a month HISTORY OF PRESENT ILLNESS I wore proper PPE for the entirety of this encounter. Krystina Markham is a 69 y.o. male who presents to the emergency department with shortness of breath and leg swelling progressive over the last month. Patient also notes a dry cough. History of CHF and COPD on oxygen since his last admission in August. Denies chest pain. Per patient ex- who lives with the patient, the swelling is going from the legs into the groin/scrotum/penis and into the abdomen. Nursing Notes were reviewed. REVIEW OF SYSTEMS As above PAST MEDICAL HISTORY Past Medical History: Diagnosis Date Alcohol consumption heavy 09/10/2015 Asthma Atrial fibrillation (HCC) CHF (congestive heart failure) (HCC) 01/31/2016 COPD (chronic obstructive pulmonary disease) (HCC) 09/10/2015 Cor, pulmonale, acute (CMS/HCC) (HCC) Deep venous thrombosis (HCC) 02/2016 Depression Hx of blood clots Obesity 09/10/2015 DELORES (obstructive sleep apnea) Pulmonary embolus ([facility]) 6 16 Raynaud phenomenon 09/10/2015 Smoker 09/10/2015 SURGICAL HISTORY Past Surgical History: Procedure Laterality Date ABDOMINAL SURGERY BRONCHOSCOPY 02/25/2020 BRONCHOSCOPY (HISTORICAL) 02/25/2020 COLONOSCOPY 10/27/[address] CHEST ANGIOGRAM W AND/OR WO IV CONTRAST 07/12/2022 CT CHEST ANGIOGRAM W AND/OR WO IV CONTRAST 07/12/2022 [facility] CT IMAGING FINGER AMPUTATION Left HERNIA REPAIR NOSE SURGERY CURRENT MEDICATIONS Previous Medications ALBUTEROL (2.5 MG/3ML) 0.083% NEBULIZER SOLUTION TAKE 3 MLS VIA NEBULIZATION ONCE NEEDED FOR WHEEZING OR SHORTNESS OF BREATH FOR UP TO 75 DOSES APIXABAN (ELIQUIS) 5 MG TABLET Take 1 tablet (5 mg) by mouth 2 times daily. ELIQUIS 5 MG TABLET Take 1 tablet (5 mg) by mouth 2 times daily. UNBONBUYUZW-VPOOLEHJS-QSDTYB (TRELEGY ELLIPTA) 100-62.5-25 MCG/ACT AEROSOL POWDER Inhale 1 puff daily. CJFXSDHASNC-ARYBCUGFW-QJEDTN (TRELEGY ELLIPTA) 100-62.5-25 MCG/ACT AEROSOL POWDER Inhale 1 puff daily. FOLIC ACID (FOLVITE) 1 MG TABLET Take 1 mg by mouth. LOSARTAN (COZAAR) 25 MG TABLET Take 0.5 tablets (12.5 mg) by mouth daily. METOPROLOL SUCCINATE XL (TOPROL-XL) 100 MG 24 HR TABLET TAKE 1 TABLET (100 MG) BY MOUTH IN THE MORNING AND 1 TABLET (100 MG) BEFORE BEDTIME. DO NOT CRUSH OR CHEW.. MONTELUKAST (SINGULAIR) 10 MG TABLET TAKE 1 TABLET BY MOUTH EVERY EVENING ROSUVASTATIN (CRESTOR) 40 MG TABLET Take 40 mg by mouth daily. SERTRALINE (ZOLOFT) 100 MG TABLET Take 100 mg by mouth daily. SPIRONOLACTONE (ALDACTONE) 25 MG TABLET Take 1 tablet (25 mg) by mouth daily. TORSEMIDE (DEMADEX) 20 MG TABLET Take 20 mg by mouth 2 times daily. ALLERGIES Patient has no known allergies. FAMILY HISTORY Family History Problem Relation Name Age of Onset Asthma Father Congenital Anomaly Father Cancer Father Asthma Sister Heart disease Mother Heart disease Brother Pacemaker Mother Congenital Anomaly Sister Cancer Mother Diabetes Mother SOCIAL HISTORY Social History Socioeconomic History Marital status: Tobacco Use Smoking status: Former Current packs/day: 0.25 Average packs/day: 0.3 packs/day for 52.3 years (13.1 ttl pk-yrs) Types: Cigarettes Start date: 1972 Smokeless tobacco: Never Tobacco comments: 8 cig daily Substance and Sexual Activity Alcohol use: Not Currently Alcohol/week: 7.0 standard drinks of alcohol Types: 7 Cans of beer per week Comment: once beer daily Drug use: Never Social Drivers of Health Financial Resource Strain: Low Risk (08/21/2024) Overall Financial Resource Strain (CARDIA) Difficulty of Paying Living Expenses: Not very hard Food Insecurity: No Food Insecurity (08/21/2024) Hunger Vital Sign Worried About Running Out of Food in the Last Year: Never true Ran Out of Food in the Last Year: Never true Transportation Needs: No Transportation Needs (08/21/2024) PRAPARE - Transportation Lack of Transportation (Medical): No Lack of Transportation (Non-Medical): No Physical Activity: Inactive (08/21/2024) Exercise Vital Sign Days of Exercise per Week: 0 days Minutes of Exercise per Session: 0 min Stress: No Stress Concern Present (08/21/2024) Citizen Of [place] of Occupational Health - Occupational Stress Questionnaire Feeling of Stress : Not at all Social Connections: Socially Isolated (08/21/2024) Social Connection and Isolation Panel [NHANES] Frequency of Communication with Friends and Family: Three times a week Frequency of Social Gatherings with Friends and Family: Never Attends Zoroastrian Services: Never Active Member of Clubs or Organizations: No Attends Club or Organization Meetings: Never Marital Status: Intimate Partner Violence: Not At Risk (08/21/2024) Humiliation, Afraid, Rape, and Kick questionnaire Fear of Current or Ex-Partner: No Emotionally Abused: No Physically Abused: No Sexually Abused: No Housing Stability: Low Risk (08/21/2024) Housing Stability Vital Sign Unable to Pay for Housing in the Last Year: No Number of Times Moved in the Last Year: 0 Homeless in the Last Year: No SCREENINGS PHYSICAL EXAM ED Triage Vitals [09/10/24 1351] Temp Heart Rate Resp BP 37.4 C (99.3 F) 76 17 117/66 SpO2 Temp Source Heart Rate Source Patient Position 100 % Temporal Monitor -- BP Location FiO2 (%) -- -- Constitutional: No acute distress HEENT:Head: Atraumatic Eyes: Conjunctivae normal. ENT: Mucous membranes moist. CV: Irregular rhythm, regular rate. Radial pulses equal bilaterally. RESP: Faint expiratory wheezing bilaterally, good respiratory effort, no increased wob GI: Abdomen soft, non-tender, mildly distended, +BS, no guarding or rebound tenderness MSK: Normal bulk and tone, no gross deformity EXTR: Warm and well perfused, 2+ pitting bilateral lower extremity edema SKIN: No rash/bruising/erythema PSYCH: Appropriate affect, cooperative behavior NEURO: Alert, face symmetric, no slurred speech DIAGNOSTIC RESULTS Interpretation per the Radiologist below, if available at the time of this note: XR chest 1 view Final Result CHF with interstitial edema and pleural effusions. Report Dictated on Electronically Signed By: Shaun Wilson MD Electronically Signed Date/Time: 09/10/2024 3:03 PM EST LABS: Labs Reviewed BASIC METABOLIC PANEL - Abnormal Result Value SODIUM 135 (*) POTASSIUM 4.4 CHLORIDE 101 CARBON DIOXIDE 27 UREA NITROGEN 10 CREATININE 0.66 (*) GLUCOSE 87 CALCIUM 8.5 (*) ANION GAP 7 eGFR >90.0 CBC WITH AUTO DIFFERENTIAL - Abnormal Auto WBC 5.2 RBC 3.73 (*) Hemoglobin 11.6 (*) Hematocrit 35.4 (*) MCV 94.9 MCH 31.1 MCHC 32.8 RDW 14.8 Platelets 162 MPV 10.0 nRBC 0.0 Neutrophils Relative 70.6 Lymphocytes Relative 13.6 (*) Monocytes Relative 9.4 Eosinophils Relative 5.2 Basophils Relative 0.8 Immature Grans % 0.4 Neutrophils Absolute 3.7 Lymphocytes Absolute 0.7 (*) Monocytes Absolute 0.5 Eosinophils Absolute 0.3 Basophils Absolute 0.0 Immature Grans Absolute 0.0 HIGH SENSITIVITY TROPONIN, SERIAL BASELINE - Abnormal Troponin HS, Serial Baseline 37 (*) NT PRO BNP - Abnormal NT PRO BNP 9,148 (*) HEPATIC FUNCTION PANEL - Abnormal BILIRUBIN, TOTAL 1.0 BILIRUBIN, DIRECT 0.5 (*) ALKALINE PHOSPHATASE 212 (*) AST (SGOT) 62 (*) ALT 36 ALBUMIN 2.6 (*) TOTAL PROTEIN 6.3 (*) BLOOD GAS, VENOUS - Abnormal pH, Venous 7.307 (*) pCO2, Venous 63.6 (*) pO2, Venous 30.6 HCO3, Venous 31.1 (*) O2 Sat, Venous 53.1 Base Excess, Venous 3.2 (*) Hgb, blood gas 12.9 (*) TCO2, Venous 33.0 (*) Source Of Oxygen 2L Narrative: Assessment of oxygenation is best done with an arterial blood gas determination. Reference ranges for pO2, bicarbonate, and base excess are for mixed venous blood. Specimens drawn from a peripheral vein will often have higher values. HIGH SENSITIVITY TROPONIN, SERIAL, SECOND TEST - Abnormal Troponin HS, Serial Second 38 (*) Troponin HS Delta, Baseline to Second 1 MAGNESIUM - Normal MAGNESIUM 1.6 Narrative: Higher values can be expected in females during menses. 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 NOTE: This result is for medical treatment only. Analysis performed using non-forensic procedures. ETHYL GLUCURONIDE SCREEN, URINE CBC WITH AUTO DIFFERENTIAL COMPREHENSIVE METABOLIC PANEL WITH MG REFLEX Narrative: The following orders were created for panel order Comprehensive Metabolic Panel w/ Mg Reflex. Procedure Abnormality Status --------- ------ Comprehensive metabolic ...[[id number]] Please view results for these tests on the individual orders. COMPREHENSIVE METABOLIC PANEL EMERGENCY DEPARTMENT COURSE and DIFFERENTIAL DIAGNOSIS/MDM: Vitals: Vitals: 09/10/24 1351 09/10/24 1740 BP: 117/66 (!) 138/91 Pulse: 76 108 Resp: 17 20 Temp: 37.4 C (99.3 F) TempSrc: Temporal SpO2: 100% 95% Medications apixaban (Eliquis) tablet 5 mg (has no administration in time range) folic acid (Folvite) tablet 1 mg (1 mg Oral Given 09/10/241900) losartan (Cozaar) tablet 12.5 mg (12.5 mg Oral Not Given 09/10/241834) metoprolol succinate XL (Toprol-XL) 24 hr tablet 100 mg (has no administration in time range) rosuvastatin (Crestor) tablet 40 mg ( Oral Unheld by provider 09/10/241843) sertraline (Zoloft) tablet 100 mg (100 mg Oral Given 09/10/241900) spironolactone (Aldactone) tablet 25 mg (25 mg Oral Not Given 09/10/241834) torsemide (Demadex) tablet 20 mg ( Oral Dose Auto Held 09/10/241834) nicotine (Nicoderm, Step 1) 21 MG/24HR patch 1 patch (1 patch TransDERmal Not Given 09/10/241834) acetaminophen (Tylenol) tablet 650 mg (has no administration in time range) Or acetaminophen (Tylenol) suppository 650 mg (has no administration in time range) ondansetron ODT (Zofran-ODT) disintegrating tablet 4 mg (has no administration in time range) Or ondansetron (Zofran) injection 4 mg (has no administration in time range) polyethylene glycol (PEG) 3350 (Miralax) packet 17 g (has no administration in time range) dapagliflozin (Farxiga) tablet 5 mg (5 mg Oral Given 09/10/241900) mometasone-formoterol (Dulera 200) 200-5 MCG/ACT inhaler 2 puff (has no administration in time range) tiotropium (Spiriva Respimat) 2.5 MCG/ACT inhaler 2 puff (has no administration in time range) ipratropium-albuterol (Duo-Neb) 0.5-2.5 mg/3 mL nebulizer solution 3 mL (3 mL Nebulization Given 09/10/241921) furosemide (Lasix) injection 40 mg (has no administration in time range) ipratropium-albuterol (Duo-Neb) 0.5-2.5 mg/3 mL nebulizer solution 3 mL (3 mL Nebulization Given 09/10/24 1415) furosemide (Lasix) injection 40 mg (40 mg IntraVENous Given 09/10/24 1544) ipratropium-albuterol (Duo-Neb) 0.5-2.5 mg/3 mL nebulizer solution 3 mL (3 mL Nebulization Given 09/10/24 174) methylPREDNISolone sodium succinate (PF) (SOLU-Medrol) injection 40 mg (40 mg IntraVENous Given 09/10/24 174) furosemide (Lasix) injection 40 mg (40 mg IntraVENous Given 09/10/24 183) I personally saw the patient and performed a substantive portion of the visit including all aspects of the medical decision making. Patient appears nontoxic. Vital signs are normal on nasal cannula oxygen. CBC with no leukocytosis. BMP is overall unremarkable. LFTs show slight elevations in alk phos, AST. High-sensitivity troponin is initially slightly elevated at 37 and then essentially unchanged on repeat to 38. proBNP is elevated at 9000 though actually somewhat lower than prior. Chest x-ray shows pulmonary edema and some small pleural effusions on my interpretation and also on the radiologist final interpretation. Patient given Lasix 40 mg IV. Also given DuoNeb and methylprednisolone IV for likely mild COPD exacerbation. I discussed with the [facility] resident who evaluated the patient in the ER. Patient was admitted. Diagnoses as of 09/10/241927 Acute on chronic congestive heart failure, unspecified heart failure type (HCC) PROCEDURES: Unless otherwise noted below, none Procedures Patients symptoms are consistent with sepsis, severe sepsis, or septic shock (If yes use ".sepsiscoremeasure"): no FINAL IMPRESSION 1. Acute on chronic congestive heart failure, unspecified heart failure type (HCC) DISPOSITION/PLAN Admit 09/10/2024 06:31:48 PM PATIENT REFERRED TO: No follow-up provider specified. DISCHARGE MEDICATIONS: New Prescriptions No medications on file (Please note: Portions of this note were completed with a voice recognition program. Efforts were made to edit the dictations but occasionally words and phrases are mis-transcribed.) Charlie Mcintyre MD MARS Emergency Medicine Physician [facility] Charlie Mcintyre MD 09/10/241927 [facility] 09-08-2024 Telephone encounter Note Name of caller: Melodie Contact phone number: [phone] Relationship to Patient: ex- Provider: Flores Practice: [facility] Chief Complaint/Reason for Call: Melodie was calling you back regarding the patient. She would like you to call her back. Please advise Best time of day caller can be reached: any Patient advised that office/PCP has 24-48 business hours to return their call: No [facility] 09-08-2024 Miscellaneous Notes Name of caller: Melodie Contact phone number: [phone] Relationship to Patient: ex- Provider: Flores Practice: [facility] Chief Complaint/Reason for Call: Melodie was calling you back regarding the patient. She would like you to call her back. Please advise Best time of day caller can be reached: any Patient advised that office/PCP has 24-48 business hours to return their call: No documented in this encounter [facility] 09-04-2024 History of Present illness Narrative Message received from [facility] via Gely Meier that patient's ex- Melodie would like me to call her nurse from [facility] did receive permission from patient to talk to ex-. CM placed call to Melodie there was no answer LVM with contact info if unable to reach me today could call on Saturday as well. Future BPCI outreach scheduled. documented in this encounter [facility] 09-04-2024 Telephone encounter Note S: Patient ex-, Melodie, spoke with [facility] nurse regarding leg swelling B: Onset of symptoms/concern ongoing A: Patient gave permission to speak with his ex regarding his medical treatment. Melodie state she moved patient into her house yesterday to try to help him sort his medical situation out. She would like to speak with the transitional care team to discuss her concerns. R: Teams message sent to Ovi Mckinnon RN, respiratory care assistant manager. Per Ovi Mckinnon, she will reach out to patients ex shortly to assist with her questions. [phone] Reason for Disposition [1] Caller requests to speak ONLY to PCP AND [2] NON-URGENT question Protocols used: PCP Call - No [id number] [facility] 09-04-2024 Miscellaneous Notes S: Patient ex-, Melodie, spoke with [facility] nurse regarding leg swelling B: Onset of symptoms/concern ongoing A: Patient gave permission to speak with his ex regarding his medical treatment. Melodie state she moved patient into her house yesterday to try to help him sort his medical situation out. She would like to speak with the transitional care team to discuss her concerns. R: Teams message sent to Ovi Mckinnon RN, respiratory care assistant manager. Per Ovi Mckinnon, she will reach out to patients ex shortly to assist with her questions. [id number]-[phone] Reason for Disposition [1] Caller requests to speak ONLY to PCP AND [2] NON-URGENT question Protocols used: PCP Call - No [id number] documented in this encounter [facility] 08-28-2024 Telephone encounter Note Called patients pharmacy. Pharmacist states patient picked up his Doxycycline yesterday. Pt. Has not returned any of our calls but has picked up his prescription. [facility] 08-28-2024 Miscellaneous Notes Called patients pharmacy. Pharmacist states patient picked up his Doxycycline yesterday. Pt. Has not returned any of our calls but has picked up his prescription. Attempted to contact the patient but call went straight to . Message left for patient to call the [facility]. Attempted to call patient. Left a message to call the office. Pt now positive for MRSA on culture after being discharged. Will call in Doxy 100 mg BID for 7 days. Attempted to call patient x2, no answer. Left VM for patient to call the office. Will call in Rx to pharmacy on file. Pedro Subramanian M.D. PGY-III Chief Resident [facility] 08/25/24 9:33 AM documented in this encounter [facility] 08-27-2024 Telephone encounter Note Attempted to contact the patient but call went straight to . Message left for patient to call the [facility]. [facility] 08-27-2024 Miscellaneous Notes Attempted to contact the patient but call went straight to . Message left for patient to call the [facility]. Attempted to call patient. Left a message to call the office. Pt now positive for MRSA on culture after being discharged. Will call in Doxy 100 mg BID for 7 days. Attempted to call patient x2, no answer. Left VM for patient to call the office. Will call in Rx to pharmacy on file. Pedro Subramanian M.D. PGY-III Chief Resident [facility] 08/25/24 9:33 AM documented in this encounter [facility] 08-25-2024 Telephone encounter Note Attempted to call patient. Left a message to call the office. [facility] 08-25-2024 Miscellaneous Notes Attempted to call patient. Left a message to call the office. Pt now positive for MRSA on culture after being discharged. Will call in Doxy 100 mg BID for 7 days. Attempted to call patient x2, no answer. Left VM for patient to call the office. Will call in Rx to pharmacy on file. Pedro Subramanian M.D. PGY-III Chief Resident [facility] 08/25/24 9:33 AM documented in this encounter [facility] 08-25-2024 Telephone encounter Note Pt now positive for MRSA on culture after being discharged. Will call in Doxy 100 mg BID for 7 days. Attempted to call patient x2, no answer. Left VM for patient to call the office. Will call in Rx to pharmacy on file. Pedro Subramanian M.D. PGY-III Chief Resident [facility] 08/25/24 9:33 AM [facility] 08-22-2024 Note [facility] 08-22-2024 Nurse Note Pt discharged home. PIV's removed from RAC & LAC, catheters intact, DSD's applied. Tele monitor removed, cleaned per protocol & returned to drawer. Discharge instructions given and all questions answered. [facility] 08-22-2024 Nurse Note Pt discharged home. PIV's removed from RAC & LAC, catheters intact, DSD's applied. Tele monitor removed, cleaned per protocol & returned to drawer. Discharge instructions given and all questions answered. Ex- at bedside and said she is his landlord. He has not been taking his medication and needs to get his Medicare Benefits activated. She is requesting to have Case Manage or Mess Attendant see patient. Patient arrived to floor. Alert and oriented to month. Does not know the year. Skin check down on coccyx, now wound noted. Waiting on dinner tray. Called to have tray brought up. No shortness of breath at this time. Spoke with ex- and she states patient has not been taking home medications. This [facility] RN saw patient on consult for ETOH abuse. I introduced myself/role and patient agreed to answer questions. Patient confirmed he fell while at a bar but denies drinking day of fall. 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 He states he drinks beer daily. He buys 6 Tall Boys every week. States he used to drink more but denies drinking the 12 pack daily recently. Stated he lives in an apartment owned by his ex-. Per patient, she does not live with him and does not know what he does. Denies withdrawal symptoms when he stops drinking. Denies blackouts and states he remembers what he has done the day before for the most part. Patient knew the month, answered 2016 to the year, could add 3+3 correctly, answered incorrectly to 7-3. Knew his and where he was at. I reviewed the consequences of drinking and his state of health. He does not think he has a problem with alcohol. He started drinking and smoking at age 14. Reviewed [facility] addiction support programs with patient. He accepted handouts for First Step and IOP but refused addiction services. documented in this encounter [facility] 08-22-2024 Note Formatting of this n ote might be different from the original. Discussed Home Care Services available to patient post DC from the hospital. Educated the patient on the services that are provided, objective of home care, and reason for the services. At this time the patient states they feel home care is not necessary. The patient politely refused the home care services. The patient was educated that should any needs arise post DC to follow up with their PCP. The patient was able to verbalize understanding. Home care to sign off. Please re-consult should any other needs arise prior to DC. [facility] 08-22-2024 Note Formatting of this n ote might be different from the original. Discussed Home Care Services available to patient post DC from the hospital. Educated the patient on the services that are provided, objective of home care, and reason for the services. At this time the patient states they feel home care is not necessary. The patient politely refused the home care services. The patient was educated that should any needs arise post DC to follow up with their PCP. The patient was able to verbalize understanding. Home care to sign off. Please re-consult should any other needs arise prior to DC. [facility] 08-22-2024 Miscellaneous Notes Discussed Home Care Services available to patient post DC from the hospital. Educated the patient on the services that are provided, objective of home care, and reason for the services. At this time the patient states they feel home care is not necessary. The patient politely refused the home care services. The patient was educated that should any needs arise post DC to follow up with their PCP. The patient was able to verbalize understanding. Home care to sign off. Please re-consult should any other needs arise prior to DC. Attempted to call to talk with patient regarding home care needs. No answer on room phone. No answer on preferred line, voicemail was left on preferred line with callback information. Care Management Progress Note Discharge Plan: Home with home care Contacted by resident that patient is refusing halfway facility recommendations. Called into patient's room and spoke with him over the phone. Patient still refusing halfway facility recommendations. Explained home care to patient. Patient states he lives alone and is agreeable to home care. Tasked home visitor to reach out to patient. Length of Stay (Days): 3 GMLOS: 3 Problem: Knowledge Deficit Goal: Patient/family/caregiver demonstrates understanding of disease process, treatment plan, medications, and discharge instructions Outcome: Progressing Problem: Urinary Incontinence Goal: Perineal skin integrity is maintained or improved Outcome: Progressing Problem: Potential for Falls Goal: I will remain free of falls Outcome: Progressing documented in this encounter [facility] 08-22-2024 History of Present illness Narrative Images from the original note were not included. [id number]] Respiratory Therapy Home O2 Progress Note O2 saturation at rest on room air: 95% (If resting saturation was 88% or less, enter NA for the next two values) O2 saturation with exertion on room air: 85% (NA if not evaluated) O2 saturation on O2 at 2 LPM with exertion: 90% (NA if not evaluated) Patient meets criteria for home O2 Y/N = yes Patient mobile at home Y/N = yes DME Notified yes Nutrition rescreen completed. Chart reviewed. Patient to be monitored and followed by the diet er medical technician. Seen personally. I have reviewed the resident notes and exam and agree with their findings unless noted otherwise in my note. Reviewed lab and imaging and customer care voice consultant notes. I reviewed the patients care plan with the patient and answered their questions' Chief complaint Sob and worsening swelling Patient is a 69-year-old with a history of increased shortness of breath and edema with a known history of HFref. He has stopped taking some of his GDMT and hasn't gotten ordered testing On admission ex- had concern for confusion, but he is clear now. Patient is chronically ill with a history of : Severe HFrEF with a EF of 20, implantable pacer/ICD, and chronic fluid overload. Had a apical mural thrombus 2 years ago and is on chronic anticoagulation. Reports he is not taking spironolactone or an Arb. He says he can afford his medss A-fib on Eliquis and metoprolol COPD on home trilogy inhalers. Patient continues to smoke CAD-not taking statin Chronic alcohol use disorder. Addiction medicine has seen him in the past. He was given 1 dose of phenobarb in the emergency room adm coordinator consulted. Doing well -will stpop ciwa Possible cirrhosis. GI consult in January recommended EGD to look for varices and AFP screening was done 6 months ago. In his last admission in January he had an elevated MELD score and was felt to have severe disease. He has less this admission. US showed probable cirrhosis-liver is nodular and minimal ascites seen.GB was not assessed, but no longer c/o pain there. Rechecked afp On admission the patient was noted to be fluid overloaded with a markedly elevated BNP. He is getting IV Lasix with good output and had improvement of his shortness of breath and edema. Legs are chronically swollen, but improving. Tissue is firm. Pt has positive strep antigens-will rx 5 d with amox as he has no cough or increased sputum. Patient is on a selective beta-amira and elequis for his atrial fibrillation. We will encourage the patient to quit smoking Pt has risks for elequis, but risk benefit appears to be to continue elequis but will assess. He agreed to restarting BP 118/75 (BP Location: Left arm, Patient Position: Sitting) Pulse 74 Temp (!) 35.2 C (95.3 F) (Temporal) Resp 18 Ht 5' 9" (1.753 m) Wt 195 lb (88.5 kg) SpO2 91% BMI 28.80 kg/m Comfortable Appears oriented Mild tachypnea. Moving air well. End expiratory wheezing-pt reports slightly better Abd soft. Distended and right uq appears to show hepatomegaly no ruq pain at this time . Neg wright sign. Bs pos Bilateral leg edema-no wound-less swelling and redness, but legs are woody and appers to have some lymphedema Amputation 3 and 4 digit A/P Sob felt to be hef ref exacerbation-change to po loop today and restart gdmt as tolerated Alcoholism-no signs of withdrawal -stop ciwa. Check on adm coordinator Noncompliance-not seeing cardio,gi or getting ordered testing Probable cirrhosis- Check afp . Discussed tylenol and nsaid avoidance. Strep peum - finish augmentin course Anticoag for a fib and past mural thrombus-risk benefit unsure- -he is open to restarting but is at higher risk of CVA as well as bleeding and he is aware and understands risks of both Lft elevation-improved but alk phos persists-ggt pos.will follow Copd-continue inhalers Delores refuses cpap OT recommends possible rehab depending on progress Ct head .is neg Anticipate discharge today or tomorrow Images from the original note were not included. Medical Teaching Service Progress Note Patient: Krystina Markham : 1955 Acct: [id number] PCP: Pedro Subramanian MD Admitting Physician: Jose M Wiggins MD Admission Date: 08/19/2024 Admitting Diagnosis: Pneumonia of right lower lobe due to infectious organism [J18.9] Atrial fibrillation, unspecified type (HCC) [I48.91] Chronic congestive heart failure, unspecified heart failure type (HCC) [I50.9] Unit/Bed: [facility] A Hospital Day: 3 Code Status: Full Code Subjective: Overnight events: No significant overnight events. Patent was seen awake eating breakfast, in stable condition, and was cooperative with exam. Patient was accompanied by Dr. Munoz in the room. Patient denied chest pain, shortness of breath, palpitations, fever and chills. They last urinated today, and had a bowel movement this morning. Plan of care was discussed with the patient and they endorsed that they understood the plan for continued treatment, and restarting anticoagulation with eliquis. Patient had no questions or concerns at the conclusion of the exam. Objective: Vitals: 08/22/24 0341 08/22/24 0749 08/22/24 0838 08/22/24 0942 BP: 118/75 BP Location: Left arm Patient Position: Sitting Pulse: 83 54 74 Resp: Temp: (!) 35.2 C (95.3 F) TempSrc: Temporal SpO2: 98% 92% 91% Weight: Height: Temp (24hrs), Av C (96.8 F), Min:35.2 C (95.3 F), Max:36.5 C (97.7 F) No intake or output data in the 24 hours ending 08/22/24 1134 Physical Exam Constitutional: General: He is not in acute distress. Appearance: He is not ill-appearing. Eyes: General: Right eye: No discharge. Left eye: No discharge. Comments: Yellowing on the sclera Pulmonary: Breath sounds: Examination of the right-lower field reveals wheezing. Examination of the left-lower field reveals wheezing. Wheezing present. No rales. Comments: Mild wheezing at the bases Chest: Chest wall: No tenderness. Abdominal: General: There is no distension. Palpations: Abdomen is soft. Tenderness: There is no abdominal tenderness. Musculoskeletal: General: Swelling present. No tenderness. Right lower leg: Edema present. Left lower leg: Edema present. Comments: Amputation of the left 3rd and 4th digits at the pip Bilateral lower extremity redness below the know Skin: Comments: Spider angiomata on the left cheek Several skin lesions on bilateral upper extremity Ulcer on the right lateral knee Neurological: Mental Status: He is alert. Polanco: No Drains: No Central Line/Port: No Intubated: No Diet: Adult diet Regular; Low Fat/Low Chol/High Fiber/2 gm Na Labs: CBC: Results from last 7 days Lab Units 08/22/243 08/21/24 0408 08/20/24 0615 08/20/24 0316 WBC AUTO 10*3/uL 7.6 9.2 -- 7.5 HEMOGLOBIN g/dL 14.3 13.8 -- 13.0 HEMOGLOBIN BG g/dl -- -- 14.3 -- HEMATOCRIT % 44.3 42.1 -- 38.5* PLATELETS 10*3/uL 145 162 -- 196 NEUTROS PCT AUTO % 76.3 80.6 -- 73.3 LYMPHS PCT AUTO % 10.0* 8.8* -- 11.4* MONOS PCT AUTO % 8.7 6.8 -- 12.1 EOS PCT AUTO % 3.7 2.2 -- 1.9 BMP: Results from last 7 days Lab Units 08/22/24 0323 08/21/24 0408 08/20/24 0404 SODIUM mmol/L 136 141 138 POTASSIUM mmol/L 3.4* 3.3* 4.2 CHLORIDE mmol/L 98 98 103 CO2 mmol/L 29 29 25 BUN mg/dL 16 14 14 CREATININE mg/dL 0.88 0.89 0.82 GLUCOSE mg/dL 73* 143* 83 CALCIUM mg/dL 8.7* 8.5* 8.4* Calcium corrected: 8.9 LIVER PROFILE: Results from last 7 days Lab Units 08/22/24 0323 08/21/24 0408 08/20/24 0404 ALK PHOS U/L 407* 382* 368* BILIRUBIN TOTAL mg/dL 0.7 0.8 0.7 PROTEIN TOTAL g/dL 7.3 6.8 6.7 ALT U/L 34 21 22 AST U/L 68* 61* 75* PT/INR: Results from last 7 days Lab Units 08/19/24 1738 APTT s 34.5* INR 1.3* CARDIAC ENZYMES: Procalcitonin: Lab Results Component Value Date PROCAL 0.04 08/19/2024 Fibrosis-4 (FIB-4) Index for Liver Fibrosis FIB-4 Calculation: 5.55 at 08/20/2024 4:04 AM Calculated from: SGOT/AST: 75 U/L at 08/20/2024 4:04 AM SGPT/ALT: 22 U/L at 08/20/2024 4:04 AM Platelets: 196 10*3/uL at 08/20/2024 3:16 AM Age: 69 years Fib-4=5.55 points- Advanced fibrosis Model for End-Stage Liver Disease MELD 3.0: 9 at 08/21/2024 4:08 AM MELD-Na: 9 at 08/21/2024 4:08 AM Calculated from: Serum Creatinine: 0.89 mg/dL (Using min of 1 mg/dL) at 08/21/2024 4:08 AM Serum Sodium: 141 mmol/L (Using max of 137 mmol/L) at 08/21/2024 4:08 AM Total Bilirubin: 0.8 mg/dL (Using min of 1 mg/dL) at 08/21/2024 4:08 AM Serum Albumin: 2.9 g/dL at 08/21/2024 4:08 AM INR(ratio): 1.3 at 08/19/2024 5:38 PM Age at listing (hypothetical): 69 years Sex: Male at 08/21/2024 4:08 AM MELD 3.0=10 POINTS: 99.1 % ESTIMATED 90 DAY SURVIVAL ASSESSMENT/PLAN: Bilateral pitting edema with dyspnea 2/2 HFrEF exacerbation, Biventricular ICD in place 07/2022 Echo 11/2023 EF 21%, Global hypokinesis, RVSP is 47 mmHg. ; BNP 12,526 (dry approx 3 - lasix 40 mg IV BID - strict I/o - metoprolol succinate 100 mg BID - used to take spironolactone 100 mg daily, torsemide 20 mg daily, losartan 25 mg daily- Will resume on discharge today - daily labs cbc, cmp, mg, ph - PT/OT -SW/CM Dyspnea with cough 2/2 strep pneumonia in setting of COPD Strep pneumo (Not on home O2), CXR: Mild infiltrate in the right lung Pro castro normal, VBG (ph: 7.35, pCO2:48.6, HCO3:26.5), cefepime and azithromycin - discontinue as workup come negative, Rep PCR normal, Uag positive for strep pneumo - S/p Ceftriaxone - Continue Augmentin for 3 days at dicharge - duoneb q4hrs PRN - home dulera and Spiriva - supplemental O2 88-92% - Home o2 eval Hypokalemia and hypomagnesemia K=3.3, Mg=1.5 -Replete with magnesium sulfate 4 g and potassium chloride 40 Meq -Daily CMP Elevated alk phos R factor for liver injury=0.2-cholestatic injury, GGT elevated at 98 abdominal US-Tiny amount of perihepatic ascites, Nodular hepatic contour. Change in mental status prior to presentation and confusion s/p fall - currently Aox3, no focal deficit Risk for delirium - delirium protocol - fall precautions Alcohol abuse at risk for withdrawal Elevated LFT - CIWA protocol - lorazepam PO/IV 1-4 mg prn CIWA >= 8 (breakthrough) - seizure precautions - monitor LFTs Atrial fibrillation Hasbled: 2 (age and alcohol use) moderate risk for major bleeding - rate controlled - Resume apixaban 5 mg BID - moderate risk for bleed given hx of drinking, age and hx of fall - metoprolol succinate 100mg BID Pulmonary HTN DELORES - autopap therapy CAD - no longer take rosuvastatin Tobacco use - nicotine patch Raynaud phenomenon vs Buerger's - keep extremities warm as needed - advise smoking cessation hx of non-compliance with medical care and poor outpatient follow up. FEN/GI/DVT: IVF: None Electrolytes: Monitor and replace per protocols Diet: Cardiac GI PPX: No DVT Prophylaxis: Resumed Eliquis CODE STATUS:Full DISPOSITION: Stable for DC today after discussing medication changes and home O2 eval. [facility] Respiratory Care Department Progress Note Comment or reasoning for refusal: Patient was seen in attempts to fulfill CPAP/BiPAP/AutoPAP order. Patient refused PAP therapy/study at this time. Patient was educated on medical need and reasoning for physician order to ensure patient was making an informed medical decision. All of the patient's questions were answered at this time and patient was informed that if the patient changes their mind regarding wearing PAP to hit their "call light" or inform their nurse to contact Respiratory. A second, consecutive night of refusing PAP therapy/study results in order completion in the EMR. If future CPAP/BiPAP/AutoPAP therapy or study is indicated please place another order in the EMR and the assigned Respiratory Therapist will reattempt to fulfill orders. Reason for refusal: does not want to wear tonight Thank you for involving Respiratory in the care of this patient, Seen personally. I have reviewed the resident notes and exam and agree with their findings unless noted otherwise in my note. Reviewed lab and imaging and customer care voice consultant notes. I reviewed the patients care plan with the patient and answered their questions' Chief complaint Sob and worsening swelling Patient is a 69-year-old with a history of increased shortness of breath and edema with a known history of HFref. He has stopped taking some of his GDMT and hasn't gotten ordered testing On admission ex- had concern for confusion, but he is clear now. Patient is chronically ill with a history of : Severe HFrEF with a EF of 20, implantable pacer/ICD, and chronic fluid overload. Had a apical mural thrombus 2 years ago and is on chronic anticoagulation. Reports he is not taking spironolactone or an Arb. He says he can afford his medss A-fib on Eliquis and metoprolol COPD on home trilogy inhalers. Patient continues to smoke CAD-not taking statin Chronic alcohol use disorder. Addiction medicine has seen him in the past. He was given 1 dose of phenobarb in the emergency room adm coordinator consulted. Doing well -will stpop ciwa Possible cirrhosis. GI consult in January recommended EGD to look for varices and AFP screening was done 6 months ago. In his last admission in January he had an elevated MELD score and was felt to have severe disease. He has less this admission. US showed probable cirrhosis-liver is nodular and minimal ascites seen.GB was not assessed, but no longer c/o pain there. Rechecked afp On admission the patient was noted to be fluid overloaded with a markedly elevated BNP. He is getting IV Lasix with good output and had improvement of his shortness of breath and edema. Legs are chronically swollen, but improving. Tissue is firm. Pt has positive strep antigens-will rx 5 d with amox as he has no cough or increased sputum. Patient is on a selective beta-amira and elequis for his atrial fibrillation. We will encourage the patient to quit smoking Pt has risks for elequis, but risk benefit appears to be to continue elequis but will assess. BP 126/73 Pulse 72 Temp 36.2 C (97.1 F) (Temporal) Resp 21 Ht 5' 9" (1.753 m) Wt 195 lb (88.5 kg) SpO2 100% BMI 28.80 kg/m Comfortable Appears oriented Mild tachypnea. Moving air well. End expiratory wheezing-pt reports slightly better Abd soft. Distended and right uq appears to show hepatomegaly no ruq pain at this time . Neg wright sign. Bs pos Bilateral leg edema-no wound-less swelling and redness, but legs are woody and appers to have some lymphedema Amputation 3 and 4 digit A/P Sob felt to be hef ref exacerbation-change to po loop Alcoholism-no signs of withdrawal -stop ciwa. Check on adm coordinator Noncompliance-not seeing cardio,gi or getting ordered testing Probable cirrhosis- Check afp . Discussed tylenol and nsaid avoidance. Anticoag for a fib and past mural thrombus-risk benefit unsure Lft elevation-improved but alk phos persists-ggt pos.will follow Copd-continue inhalers Delores refuses cpap OT recommends possible rehab depending on progress Ct head .is neg Anticipate discharge today or tomorrow Images from the original note were not included. Medical Teaching Service Progress Note Patient: Krystina Markham : 1955 Acct: [id number] PCP: Pedro Subramanian MD Admitting Physician: Jose M Wiggins MD Admission Date: 08/19/2024 Admitting Diagnosis: Pneumonia of right lower lobe due to infectious organism [J18.9] Unit/Bed: Hospital Day: 2 Code Status: Full Code Subjective: Overnight events: No significant overnight events. Pt seen in bed,His nasal canula was off he says that he takes it off to go to the washroom. He reports that he is breathing better now. No issue with food. Normal BM and urination. He says he is able to ambulate okay. no cp, headache, abdominal pain, or LE pain. Objective: Vitals: 08/21/24 0345 08/21/24 0645 08/21/24 0800 08/21/24 0815 BP: 102/60 109/69 107/72 BP Location: Patient Position: Pulse: 83 72 70 71 Resp: Temp: TempSrc: SpO2: (!) 90% (!) 85% (!) 88% 94% Weight: Height: No data recorded. Intake/Output Summary (Last 24 hours) at 08/21/2024 0830 Last data filed at 08/21/2024 0335 Gross per 24 hour Intake 30 ml Output 2450 ml Net -2420 ml Physical Exam Constitutional: General: He is not in acute distress. Appearance: He is not ill-appearing. Eyes: Comments: Yellowing on the sclera Pulmonary: Breath sounds: Wheezing present. No rales. Comments: Mild wheezing at the bases of the lung Chest: Chest wall: No tenderness. Abdominal: General: There is distension. Palpations: Abdomen is soft. Tenderness: There is abdominal tenderness. Comments: RUQ tenderness Musculoskeletal: General: Swelling present. No tenderness. Right lower leg: Edema present. Left lower leg: Edema present. Comments: Amputation of the left 3rd and 4th digits at the pip Bilateral lower extremity redness below the know Skin: Comments: Spider angiomata on the left cheek Several skin lesions on bilateral upper extremity Ulcer on the right lateral knee Neurological: Mental Status: He is alert. Polanco: No Drains: No Central Line/Port: No Intubated: No Diet: Adult diet Regular; Low Fat/Low Chol/High Fiber/2 gm Na Labs: CBC: Results from last 7 days Lab Units 08/21/24 0408 08/20/24 0615 08/20/24 0316 08/19/24 2222 08/19/24 1738 WBC AUTO 10*3/uL 9.2 -- 7.5 -- 7.0 HEMOGLOBIN g/dL 13.8 -- 13.0 -- 13.2 HEMOGLOBIN BG g/dl -- 14.3 -- < > -- HEMATOCRIT % 42.1 -- 38.5* -- 39.7* PLATELETS 10*3/uL 162 -- 196 -- 145 NEUTROS PCT AUTO % 80.6 -- 73.3 -- 76.9 LYMPHS PCT AUTO % 8.8* -- 11.4* -- 10.5* MONOS PCT AUTO % 6.8 -- 12.1 -- 9.5 EOS PCT AUTO % 2.2 -- 1.9 -- 1.8 < > = values in this interval not displayed. BMP: Results from last 7 days Lab Units 08/21/24 0408 08/20/24 04008/19/24 1738 SODIUM mmol/L 141 138 136 POTASSIUM mmol/L 3.3* 4.2 3.8 CHLORIDE mmol/L 98 103 102 CO2 mmol/L 29 25 25 BUN mg/dL 14 14 14 CREATININE mg/dL 0.89 0.82 0.77 GLUCOSE mg/dL 143* 83 96 CALCIUM mg/dL 8.5* 8.4* 8.7* Calcium corrected: 8.9 LIVER PROFILE: Results from last 7 days Lab Units 08/21/24 0408 08/20/24 0404 08/19/24 1738 ALK PHOS U/L 382* 368* 416* BILIRUBIN TOTAL mg/dL 0.8 0.7 0.8 PROTEIN TOTAL g/dL 6.8 6.7 6.2* ALT U/L 21 22 21 AST U/L 61* 75* 51* PT/INR: Results from last 7 days Lab Units 08/19/24 1738 APTT s 34.5* INR 1.3* CARDIAC ENZYMES: Procalcitonin: Lab Results Component Value Date PROCAL 0.04 08/19/2024 Fibrosis-4 (FIB-4) Index for Liver Fibrosis FIB-4 Calculation: 5.55 at 08/20/2024 4:04 AM Calculated from: SGOT/AST: 75 U/L at 08/20/2024 4:04 AM SGPT/ALT: 22 U/L at 08/20/2024 4:04 AM Platelets: 196 10*3/uL at 08/20/2024 3:16 AM Age: 69 years Fib-4=5.55 points- Advanced fibrosis Model for End-Stage Liver Disease MELD 3.0: 9 at 08/21/2024 4:08 AM MELD-Na: 9 at 08/21/2024 4:08 AM Calculated from: Serum Creatinine: 0.89 mg/dL (Using min of 1 mg/dL) at 08/21/2024 4:08 AM Serum Sodium: 141 mmol/L (Using max of 137 mmol/L) at 08/21/2024 4:08 AM Total Bilirubin: 0.8 mg/dL (Using min of 1 mg/dL) at 08/21/2024 4:08 AM Serum Albumin: 2.9 g/dL at 08/21/2024 4:08 AM INR(ratio): 1.3 at 08/19/2024 5:38 PM Age at listing (hypothetical): 69 years Sex: Male at 08/21/2024 4:08 AM MELD 3.0=10 POINTS: 99.1 % ESTIMATED 90 DAY SURVIVAL ASSESSMENT/PLAN: Bilateral pitting edema with dyspnea 2/2 HFrEF exacerbation, Biventricular ICD in place 07/2022 Echo 11/2023 EF 21%, Global hypokinesis, RVSP is 47 mmHg. ; BNP 12,526 (dry approx 3 - lasix 40 mg IV BID - strict I/o - metoprolol succinate 100 mg BID - used to take spironolactone 100 mg daily, torsemide 20 mg daily, losartan 25 mg daily- consider resuming once acute illness resolves - daily labs cbc, cmp, mg, ph - PT/OT -SW/CM Dyspnea with cough 2/2 strep pneumonia in setting of COPD Strep pneumo (Not on home O2), CXR: Mild infiltrate in the right lung Pro castro normal, VBG (ph: 7.35, pCO2:48.6, HCO3:26.5), cefepime and azithromycin - discontinue as workup come negative, Rep PCR normal, Uag positive for strep pneumo -Ceftriaxone discontinued- start Augmentin for 4 days - duoneb q4hrs PRN - home dulera and Spiriva - supplemental O2 88-92% Hypokalemia and hypomagnesemia K=3.3, Mg=1.5 -Replete with magnesium sulfate 4 g and potassium chloride 40 Meq -Daily CMP Elevated alk phos R factor for liver injury=0.2-cholestatic injury, GGT elevated at 98 abdominal US-Tiny amount of perihepatic ascites, Nodular hepatic contour. Change in mental status prior to presentation and confusion s/p fall - currently Aox3, no focal deficit Risk for delirium - delirium protocol - fall precautions Alcohol abuse at risk for withdrawal Elevated LFT - CIWA protocol - lorazepam PO/IV 1-4 mg prn CIWA >= 8 (breakthrough) - seizure precautions - monitor LFTs Atrial fibrillation Hasbled: 2 (age and alcohol use) moderate risk for major bleeding - rate controlled - HOLD apixaban 5 mg BID - moderate risk for bleed given hx of drinking, age and hx of fall - metoprolol succinate 100mg BID Pulmonary HTN DELORES - autopap therapy CAD - no longer take rosuvastatin Tobacco use - nicotine patch Raynaud phenomenon vs Buerger's - keep extremities warm as needed - advise smoking cessation hx of non-compliance with medical care and poor outpatient follow up. FEN/GI/DVT: IVF: None Electrolytes: Monitor and replace per protocols Diet: Cardiac GI PPX: No DVT Prophylaxis: Lovenox CODE STATUS:Full DISPOSITION: Medical management of HfrEF exercebation Images from the original note were not included. Medical Teaching Service Overnight Summary [facility] ED [address] [facility] [address] Dept: [phone] Loc: [phone] Patient: Krystina Markham : 1955 Acct: [id number] PCP: Pedro Subramanian MD Admitting Physician: Jose M Wiggins MD Admission Date: 08/19/2024 Admitting Diagnosis: Pneumonia of right lower lobe due to infectious organism [J18.9] Unit/Bed: Hospital Day: 1 Code Status: Full Code Pt was monitored throughout the night with bedside rounding. Acute events addressed overnight: none Physical exam notable for: -Vitals: Vitals: 08/20/24 1803 08/20/24 1832 08/20/24200108/20/24 2204 BP: 82/56 98/56 115/80 110/80 BP Location: Left arm Left arm Patient Position: Lying Lying Pulse: 68 70 77 73 Resp: 18 17 17 16 Temp: TempSrc: SpO2: 97% 98% Weight: Height: 3L NC Issues requiring daytime follow-up: - resp and fluid status - continue with lasix, optimize GDMT as tolerated for patient - PT/OT recommending SNF - home O2 eval - discharge planning Any notable events can be found as significant event notes if needed. Pt handoff was made to day-team with pertinent information for pt's case and care. Images from the original note were not included. OCCUPATIONAL THERAPY [facility] Initial Evaluation Name/MRN: Krystina Markham ([id number]) Evaluation Date: 08/20/2024 Date of : 1955 Admission Date: 08/19/2024 5:12 PM Age: 69 y.o. Room/Bed: Discharge Recommendation: [facility] Facility, Continue to assess pending progress Equipment Needed: No Assessment IMPRESSION: Pt admitted to ED on 08/19 with edema, SOB, and AMS with a fall. Pt found to have interstitial pulmonary edema with christine pleural effusions. Pt with h/o ETOH abuse. ETOH screen was negative. Prior to admission, pt lived alone and performed ADLs and mobility independently. Upon eval, pt required SBA-min A for bed mobility, min A for transfers, Min A for mobility, and SBA for ADLs. Pt is a high fall risk at this time and is not safe to return home independently. Pt would benefit from skilled OT services in order to increase safety and independence in occupational tasks. Recommend SNF pending progress upon DC. Performance Deficits /Impairments: Increased Pain, Decreased Functional Mobility, Decreased ADL status, Decreased Strength, Decreased Safety Awareness, Decreased Endurance, Decreased Balance, Decreased High Level IADLs, and Decreased Cognition Prognosis: Good Decision Making: Medium Complexity Subjective Pt cooperative for therapy evaluation. Pt on 3L O2 NC. Pain: Pt denies any current pain. Past Medical History: Past Medical History: Diagnosis Date Alcohol consumption heavy 09/10/2015 Asthma Atrial fibrillation ([facility]) CHF (congestive heart failure) ([facility]) 01/31/2016 COPD (chronic obstructive pulmonary disease) ([facility]) 09/10/2015 Cor, pulmonale, acute (CMS/HCC) ([facility]) Deep venous thrombosis ([facility]) 02/2016 Depression Hx of blood clots Obesity 09/10/2015 DELORES (obstructive sleep apnea) Pulmonary embolus ([facility]) 6 16 Raynaud phenomenon 09/10/2015 Smoker 09/10/2015 Past Surgical History: Past Surgical History: Procedure Laterality Date ABDOMINAL SURGERY BRONCHOSCOPY 02/25/2020 BRONCHOSCOPY (HISTORICAL) 02/25/2020 COLONOSCOPY 10/27/[address] CHEST ANGIOGRAM W AND/OR WO IV CONTRAST 07/12/2022 CT CHEST ANGIOGRAM W AND/OR WO IV CONTRAST 07/12/2022 [facility] CT IMAGING FINGER AMPUTATION Left HERNIA REPAIR NOSE SURGERY Admission Diagnosis: Patient Active Problem List Diagnosis Date Noted Financial difficulties 08/20/2024 Pulmonary HTN (HCC) 08/19/2024 DELORES on CPAP 04/15/2024 Heavy tobacco smoker 04/15/2024 Cigarette smoker 04/15/2024 Personal history of smoking 04/15/2024 Paroxysmal atrial fibrillation (HCC) 03/03/2024 Cervical spondylosis 03/02/2024 Non-pressure chronic ulcer of other part of right foot with unspecified severity ([facility]) 02/17/2024 Diabetes due to undrl condition w oth diabetic neuro comp ([facility]) 02/17/2024 Alcohol abuse with withdrawal, uncomplicated ([facility]) 02/17/2024 Right arm numbness 02/13/2024 Persistent depressive disorder 02/13/2024 DELORES (obstructive sleep apnea) 02/13/2024 Poor compliance with medication 02/13/2024 On continuous oral anticoagulation 11/21/2023 Acute exacerbation of CHF (congestive heart failure) ([facility]) 11/12/2023 Medical non-compliance 11/12/2023 Anemia in other chronic diseases classified elsewhere 01/01/2023 Closed fracture of neck of left humerus with routine healing 12/31/2022 Hyponatremia 12/29/2022 COPD exacerbation ([facility]) 09/13/2022 Alcohol abuse, continuous 07/28/2022 Presence of implantable cardioverter-defibrillator (ICD) 07/19/2022 Chest pain, unspecified type 07/17/2022 Hypochloremia 07/17/2022 Tobacco abuse 07/17/2022 HFrEF (heart failure with reduced ejection fraction) ([facility]) 07/17/2022 Permanent atrial fibrillation ([facility]) 08/25/2021 History of rib fracture 08/25/2021 Chronic hyponatremia 08/25/2021 Essential hypertension 08/25/2021 COPD (chronic obstructive pulmonary disease) (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) 04/10/2017 Cor, pulmonale, acute ([facility]/HCC) ([facility]) 02/01/2016 Raynaud phenomenon 09/10/2015 Medical Precautions: Droplet Proper PPE donned/doffed in accordance with facility standards. Fall Risk: Landin Fall Risk Score: 45 (High Risk) Precautions/Restrictions: N/A Family/Caregiver Present: none Overall Cognitive Status: Exceptions - Following commands: follows one step commands with increased time and follows one step commands with repetition - Memory: decreased short term memory - Safety judgement: decreased awareness of need for assistance and decreased awareness of need for safety - Problem solving: assistance required to generate solutions, assistance required to implement solutions, assistance required to identify errors made, assistance required to correct errors made, and decreased awareness of errors - Insights: decreased awareness of deficits - Initiation: requires cues for some - Sequencing: requires cues for some - delayed processing time noted Overall Orientation Status: Oriented to Person Social/Functional History Patient admitted from home. Lives With: Alone Type of Home: single family home Home Layout: Two Level Home and Able to Live on Main Level Home Access: Stairs to Enter without Rails (# of stairs: 3) Bathroom Shower/Tub: Tub/Shower Combo and Grab Bars Toilet: Standard Home Equipment: none Homemaking Responsibilities: Independent Receives Help From: None Active Food Services Director: No Prior Level of Function ; Device: None Objective ADLs Toileting: SBA Grooming: SBA Pt able to sit to void a BM with SBA. He required extended time to complete hygiene. Pt then stood at the sink for hand hygiene with SBA. Upper Extremity Assessment AROM: WFL PROM: Not assessed this session Strength: global generalized weakness Vision: no visual deficits Hearing: normal Bed Mobility Supine to sit: Min Assist Sit to supine: SBA Scooting: Min Assist Pt able to manage the B LEs off the EOB. He required min A FILAMENT WELDER to elevate trunk during supine to sit. Min A FILAMENT WELDER to scoot to EOB. Pt able to return to supine with SBA. He denied dizziness with positional changes. Transfers/Functional Mobility Sit to stand: Min Assist Stand to sit: Min Assist Toilet: Min Assist Standing balance: Min Assist Functional mobility: Min Assist Pt stood from EOB with no device requiring Min A d/t unsteadiness. He then walked a few feet with no device but continued to be unsteady, requiring min a for safety. Pt returned to the bed and completed a second transfer with min A. He was given a FWW and walked to/from the hallway bathroom with Min A, bumping into obstacles and people and abandoning the walker twice. Pt required extended time to process cues. He completed a toilet transfer with min A and additional time. Device(s) used: Front wheeled walker AM-PAC AM-PAC Inpatient Daily Activity Raw Score: 18 ADL Inpatient CMS G-Code Modifier: CK Plan Pt would benefit from skilled acute OT services to address Strengthening, Balance Training, Self-Care/ADL Training, Functional Mobility Training, Endurance Training, Safety Education and Training, Pain Management, Equipment Evaluation/Education, Cognitive Reorientation, Home Management Training, Patient/Caregiver Training, and Cognitive/Perceptual Training. Frequency: 7 visits during current hospital admission or until additional recommendations are made Barriers: Pain, Impaired balance, Lower extremity weakness, Decreased endurance, and Limited safety awareness Safety/Education Safety Safety Devices in place: All fall risk precautions in place, call light within reach, left in bed, patient at risk for falls, and nurse notified Restraints: N/A Education Education Given To: patient Education Provided: OT Role, Plan of Care, ADL Adaptive Strategies, Transfer Training, Equipment, Fall Prevention Education, Discharge Recommendations, and Benefits of Increasing Activity Education Method: Verbal Barriers to Learning: None Education Outcome: Continued Education Needed Goals Patient Stated Goal: none stated Encounter Problems Encounter Problems (Active) Balance Patient will maintain dynamic standing balance for 3 minutes with modified independence in order to demonstrate decreased risk of falling. Start: 08/20/24 Expected End: 08/27/24 Dressings Lower Extremities Patient will dress lower body with mod I Start: 08/20/24 Expected End: 08/27/24 Mobility pt will perform functional mobility and transfers with FWW and mod I Start: 08/20/24 Expected End: 08/27/24 Toileting Patient will complete toileting tasks at standard toilet with modified independence. Start: 08/20/24 Expected End: 08/27/24 Transfers Patient will perform bed mobility with modified independence in order to improve independence and prepare for out of bed mobility. Start: 08/20/24 Expected End: 08/27/24 Therapy Time Individual Co-Treatment Co-Evaluation Time In 1115 Time Out 1130 Minutes 15 Melodie Rebolledo OT Patient's Occupational Therapy Plan of Care supervision is transferred to a [facility] Occupational Therapist. Goals and/or treatment plan was established in collaboration with patient/family/other representatives. Images from the original note were not included. PHYSICAL THERAPY [facility] Initial Evaluation Name/MRN: Krystina Markham ([id number]) Evaluation Date: 08/20/2024 Date of : 1955 Admission Date: 08/19/2024 5:12 PM Age: 69 y.o. Room/Bed: Discharge Recommendation: [facility], Continue to assess pending progress Equipment Needed: Yes Mobility Devices: Walker Assessment IMPRESSION: Pt is a 69yo male admitted to ED on 08/19 with edema, SOB and AMS after a fall. Pt was found to have interstitial pulmonary edema with bilateral pleural effusions. Pt with history of ETOH abuse. Prior to admission, pt lived alone and performed functional mobility and ADLs independently with no device. On eval, pt required SBA-Min A for bed mobility, Min A for transfers, CGA-Min A for ambulation with FWW. Pt is limited by decreased balance and decreased endurance. Pt will benefit from skilled PT services in order to increase safety and independence in functional mobility. Recommend SNF pending progress at discharge. Admitting Diagnosis: SOB Prognosis: good Performance Deficits /Impairments: Increased Pain, Decreased Functional Mobility, Decreased ADL status, Decreased Strength, Decreased Safety Awareness, Decreased Endurance, Decreased Balance, and Decreased High Level IADLs Decision Making: Medium Complexity Subjective Pt supine in bed, agreeable to eval. Per RN, pt okay for therapy. Observation: 3L O2 via nasal cannula. Pain: Pt denies any current pain. Past Medical History: Past Medical History: Diagnosis Date Alcohol consumption heavy 09/10/2015 Asthma Atrial fibrillation (HCC) CHF (congestive heart failure) ([facility]) 01/31/2016 COPD (chronic obstructive pulmonary disease) ([facility]) 09/10/2015 Cor, pulmonale, acute (CMS/HCC) (HCC) Deep venous thrombosis (HCC) 02/2016 Depression Hx of blood clots Obesity 09/10/2015 DELORES (obstructive sleep apnea) Pulmonary embolus (HCC) 6 16 Raynaud phenomenon 09/10/2015 Smoker 09/10/2015 Past Surgical History: Past Surgical History: Procedure Laterality Date ABDOMINAL SURGERY BRONCHOSCOPY 02/25/2020 BRONCHOSCOPY (HISTORICAL) 02/25/2020 COLONOSCOPY 10/27/[address] CHEST ANGIOGRAM W AND/OR WO IV CONTRAST 07/12/2022 CT CHEST ANGIOGRAM W AND/OR WO IV CONTRAST 07/12/2022 [facility] CT IMAGING FINGER AMPUTATION Left HERNIA REPAIR NOSE SURGERY Admission Diagnosis: Patient Active Problem List Diagnosis Date Noted Financial difficulties 08/20/2024 Pulmonary HTN (HCC) 08/19/2024 DELORES on CPAP 04/15/2024 Heavy tobacco smoker 04/15/2024 Cigarette smoker 04/15/2024 Personal history of smoking 04/15/2024 Paroxysmal atrial fibrillation ([facility]) 03/03/2024 Cervical spondylosis 03/02/2024 Non-pressure chronic ulcer of other part of right foot with unspecified severity (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) 02/17/2024 Alcohol abuse with withdrawal, uncomplicated ([facility]) 02/17/2024 Right arm numbness 02/13/2024 Persistent depressive disorder 02/13/2024 DELORES (obstructive sleep apnea) 02/13/2024 Poor compliance with medication 02/13/2024 On continuous oral anticoagulation 11/21/2023 Acute exacerbation of CHF (congestive heart failure) ([facility]) 11/12/2023 Medical non-compliance 11/12/2023 Anemia in other chronic diseases classified elsewhere 01/01/2023 Closed fracture of neck of left humerus with routine healing 12/31/2022 Hyponatremia 12/29/2022 COPD exacerbation ([facility]) 09/13/2022 Alcohol abuse, continuous 07/28/2022 Presence of implantable cardioverter-defibrillator (ICD) 07/19/2022 Chest pain, unspecified type 07/17/2022 Hypochloremia 07/17/2022 Tobacco abuse 07/17/2022 HFrEF (heart failure with reduced ejection fraction) ([facility]) 07/17/2022 Permanent atrial fibrillation ([facility]) 08/25/2021 History of rib fracture 08/25/2021 Chronic hyponatremia 08/25/2021 Essential hypertension 08/25/2021 COPD (chronic obstructive pulmonary disease) (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) 04/10/2017 Cor, pulmonale, acute (CMS/HCC) ([facility]) 02/01/2016 Raynaud phenomenon 09/10/2015 Medical Precautions: Droplet Proper PPE donned/doffed in accordance with facility standards. Fall Risk: Landin Fall Risk Score: 45 (High Risk) Precautions/Restrictions: N/A Family/Caregiver Present: none Overall Cognitive Status: Exceptions - Following commands: follows one step commands with increased time and follows one step commands with repetition - Memory: decreased short term memory - Safety judgement: decreased awareness of need for assistance and decreased awareness of need for safety - Problem solving: assistance required to generate solutions, assistance required to implement solutions, assistance required to identify errors made, assistance required to correct errors made, and decreased awareness of errors - Insights: decreased awareness of deficits - Initiation: requires cues for some - Sequencing: requires cues for some Overall Orientation Status: Oriented to Place and Oriented to Person Vision: no visual deficits Hearing: normal Social/Functional History Patient admitted from home. Lives With: Alone Type of Home: single family home Home Layout: Two Level Home and Able to Live on Main Level Home Access: Stairs to Enter without Rails (# of stairs: 3) Bathroom Shower/Tub: Tub/Shower Combo and Grab Bars Toilet: Standard Home Equipment: none Homemaking Responsibilities: Independent Receives Help From: None Active Food Services Director: No Prior Level of Function Prior Level of ADL Function: Independent Prior Level of Mobility: Independent; Device: None Prior Level of Transfers: Independent Objective Lower Extremity Assessment AROM: WFL Strength: Exceptions: generalized weakness noted in B LE, but >3/5 as noted during functional mobility. Bed Mobility: Supine to sit: Min Assist Sit to supine: SBA Pt completes bed mobility with HOB elevated. Pt completes with increased time to move B LE over to EOB. Assist with bringing trunk upright. Pt complete sit to supine with SBA. Pt was assisted at start of session with donning socks and pants. Pt was total assist for donning socks and Max A for donning pants. Transfers Sit to stand: Min Assist Stand to sit: Min Assist Pt completes STS transfer from EOB x 2 with Min A. Increased retro LOB, requiring Min A for correction. Pt completes STS transfer from chair in room with Min A. Pt was provided cues for hand placement for safety with transfer. Ambulation Ambulation 1 Assistive device(s) used: Front wheeled walker Assist level: Contact Guard, Min Assist Distance (ft): 100ft Quality of gait: Pt demonstrates decreased gait speed, decreased step length. Pt demonstrates slight impulsivity, requiring Min A for safety. Ambulation 2 Assistive device(s) used: None Assist level: Min Assist Distance (ft): 15ft Quality of gait: Pt ambulates short distance in room with no device and Min A. Pt reaching for environmental support during ambulation. No major LOB. Outcome Measures AM-PAC How much HELP from another person do you currently need Turning from your back to your side while in a flat bed without using bedrails?: A Little Moving from lying on your back to sitting on the side of a flat bed without using bedrails?: A Little Moving to and from a bed to a chair (including a wheelchair)?: A Little Standing up from a chair using your arms (wheelchair or bedside chair)?: A Little Walking in a hospital room?: A Little Stair climbing assessed?: No AM-PAC Inpatient Mobility Raw Score (No Stairs) : 15 Plan Pt would benefit from skilled acute PT services to address Strengthening, ROM, Gait Training, Balance Training, Functional Mobility Training, Endurance Training, Safety Education and Training, Stair Training, Neuromuscular Re-Education Training, and Patient/Caregiver Training. Frequency: 7 visits during current hospital admission or until additional recommendations are made Barriers: Pain, Impaired balance, Lower extremity weakness, Decreased endurance, Limited safety awareness, Stairs at home, No family support, No caregiver support, and Limited insight into deficits Safety/Education Safety Safety Devices in place: All fall risk precautions in place, call light within reach, left in bed, gait belt, patient at risk for falls, nurse notified, and no alarms engaged upon entry Restraints: No Education Education Given To: patient Education Provided: PT Role, PT Goals, Gait Training, Plan of Care, Home Exercise Program, Precautions, Transfer Training, Equipment, Discharge Recommendations, and Benefits of Increasing Activity Education Method: Verbal and Demonstration Barriers to Learning: None Education Outcome: Verbalized Understanding and Continued Education Needed Goals Patient Stated Goal: none stated. Encounter Problems Encounter Problems (Active) Balance Patient will maintain dynamic standing balance for 4 minutes with modified independence in order to demonstrate decreased risk of falling. Start: 08/20/24 Expected End: 08/30/24 Exercise Patient will complete lower extremity exercises for 1-2 sets / 5-10 reps in order to improve strength and activity tolerance for mobility. Start: 08/20/24 Expected End: 08/30/24 Mobility Patient will ambulate 100 feet with modified independence and least restrictive device in order to improve safety and independence with mobility. Start: 08/20/24 Expected End: 08/30/24 Patient will ascend and descend 3 stairs with least restrictive device and SBA in order to safely negotiate home. Start: 08/20/24 Expected End: 08/30/24 Safety Transfers Patient will perform bed mobility with modified independence in order to improve independence and prepare for out of bed mobility. Start: 08/20/24 Expected End: 08/30/24 Patient will complete functional transfer with least restrictive device with modified independence in order to prepare for ambulation. Start: 08/20/24 Expected End: 08/30/24 Therapy Time Individual Co-Treatment Co-Evaluation Time In 0947 Time Out 1015 Minutes 28 Timed Code Treatment Minutes: 10 Minutes (1 gait) Theresa Muniz PT Patient's Physical Therapy Plan of Care supervision is transferred to a [facility] Physical Therapist. Goals and/or treatment plan was established in collaboration with patient/family/other representatives. Images from the original note were not included. OCCUPATIONAL THERAPY [facility] Name/MRN: Krystina Markham ([id number]) Date: 08/20/2024 OT orders received and chart reviewed. Resident physician currently speaking with pt at bedside. Plan to re-attempt as able. Melodie Rebolledo OT Seen personally. I have reviewed the resident notes and exam and agree with their findings unless noted otherwise in my note. Reviewed lab and imaging and customer care voice consultant notes. I reviewed the patients care plan with the patient and answered their questions' Chief complaint Sob and worsening swelling Patient is a 69-year-old with a history of increased shortness of breath and edema with a known history of HFref. He has stopped taking some of his GDMT In addition his ex- has noted increased confusion over several days -he is known to drink heavily -and he fell and hit his head in a bar several days ago and is on Eliquis. Patient is chronically ill with a history of : Severe HFrEF with a EF of 20, implantable pacer/ICD, and chronic fluid overload. Had a apical mural thrombus 2 years ago and is on chronic anticoagulation. Reports he is not taking spironolactone or an Arb. He was unable to give details A-fib on Eliquis and metoprolol COPD on home trilogy inhalers. Patient continues to smoke CAD-not taking statin Chronic alcohol use disorder. Addiction medicine has seen him in the past. He was given 1 dose of phenobarb in the emergency room adm coordinator consulted. Pt is oriented but a little confused-will continue ciwa and as he is on elequis and fell we will check ct head Possible cirrhosis. GI consult in January recommended EGD to look for varices and AFP screening was done 6 months ago. In his last admission in January he had an elevated MELD score and was felt to have severe disease. He has less today. We ordered us to assess his ruq pain which he complained of this am-liver is nodular and minimal ascites seen.GB was not assessed, but no longer c/o pain there On admission the patient was noted to be fluid overloaded with a markedly elevated BNP. His oxygenation was good. He was given IV Lasix with good output and had improvement of his shortness of breath and edema. In the emergency room he received 1 L of fluid as there was apparently concern for sepsis but fluids have been discontinued. There was concern for possible infiltrate patient was given azithromycin and ceftriaxone which was then changed to cefepime. The overall assessment was this was more likely to be from fluid overload and antibiotics are currently discontinued There is a question of the patient has cirrhosis. Liver ultrasound in January showed some possible nodularity. Patient is on a selective beta-amira for his atrial fibrillation. Last AFP was 6 months ago. Does not appear to have a COPD exacerbation. He is not coughing above his baseline and does not have a change in his mucus. We will encourage the patient to quit smoking Pt has risks for elequis, but risk benefit appears to be to continue elequis but will assess. BP 114/81 Pulse 81 Temp 36.2 C (97.1 F) (Temporal) Resp 20 Ht 5' 9" (1.753 m) Wt 195 lb (88.5 kg) SpO2 95% BMI 28.80 kg/m Comfortable Appears oriented Mild tachypnea. Moving air well. End expiratory wheezing-pt reports slightly better Abd soft. Distended and right uq appears to show hepatomegaly no ruq pain at this time . Neg wright sign. Bs pos Bilateral leg edema-no wound Amputation 3 and 4 digit A/P Sob felt to be hef ref exadcerbation-do not think he is infected or having a copd exacerbation. Continue bid iv loop for now-reimage tomorrow Alcoholism-no signs of withdrawal -ciwa and prn ativan. Consult adm coordinator Noncompliance-not seeing cardio,gi or getting ordered testing Probable cirrhosis-not confirmed. See above. Check afp Anticoag for a fib and past mural thrombus-risk benefit unsure Lft elevation-improved Copd-continue inhalers Delores refuses cpap 9. OT recommends possible rehab doepending on progress Ct head . Ammonia neg Images from the original note were not included. Medical Teaching Service Progress Note Patient: Krystina Markham : 1955 Acct: [id number] PCP: Pedro Subramanian MD Admitting Physician: Jose M Wiggins MD Admission Date: 08/19/2024 Admitting Diagnosis: Pneumonia of right lower lobe due to infectious organism [J18.9] Unit/Bed: Hospital Day: 1 Code Status: Full Code Subjective: Overnight events: No significant overnight events. Patient seen in bed. Still has cough that is productive of white sputum. This is is baseline cough. He denies hematemesis. He reports that his breathing is same as yesterday. Normal BM and urination. He says he is able to ambulate okay. no cp, headache, abdominal pain, or LE pain. Objective: Vitals: 08/19/24 2211 08/20/24 0100 08/20/24 0300 08/20/24 0817 BP: 119/87 94/68 (!) 141/91 112/88 BP Location: Left arm Patient Position: Lying Pulse: 92 82 86 98 Resp: 20 Temp: TempSrc: SpO2: (!) 90% (!) 90% 98% Weight: Height: Temp (24hrs), Av.2 C (97.1 F), Min:36.2 C (97.1 F), Max:36.2 C (97.1 F) Intake/Output Summary (Last 24 hours) at 08/20/2024 0824 Last data filed at 08/20/2024 0325 Gross per 24 hour Intake 300 ml Output 550 ml Net -250 ml Physical Exam Constitutional: Comments: Pt grawning. Eyes: General: Scleral icterus present. Comments: Yellowing on the sclera Pulmonary: Breath sounds: Wheezing and rales present. Chest: Chest wall: No tenderness. Abdominal: General: There is distension. Palpations: Abdomen is soft. Tenderness: There is abdominal tenderness. Comments: RUQ tenderness Musculoskeletal: General: Swelling present. No tenderness. Right lower leg: Edema present. Left lower leg: Edema present. Comments: Amputation of the left 3rd and 4th digits at the pip Bilateral lower extremity redness below the know Skin: Comments: Spider angiomata on the left cheek Several skin lesions on bilateral upper extremity Ulcer on the right lateral knee Neurological: Mental Status: He is alert. Polanco: No Drains: No Central Line/Port: No Intubated: No Diet: Adult diet Regular; Low Fat/Low Chol/High Fiber/2 gm Na Labs: CBC: Results from last 7 days Lab Units 08/20/24 0615 08/20/24 0316 08/19/24 2222 08/19/24 1738 WBC AUTO 10*3/uL -- 7.5 -- 7.0 HEMOGLOBIN g/dL -- 13.0 -- 13.2 HEMOGLOBIN BG g/dl 14.3 -- 14.4 -- HEMATOCRIT % -- 38.5* -- 39.7* PLATELETS 10*3/uL -- 196 -- 145 NEUTROS PCT AUTO % -- 73.3 -- 76.9 LYMPHS PCT AUTO % -- 11.4* -- 10.5* MONOS PCT AUTO % -- 12.1 -- 9.5 EOS PCT AUTO % -- 1.9 -- 1.8 BMP: Results from last 7 days Lab Units 08/20/24 0404 08/19/24 1738 SODIUM mmol/L 138 136 POTASSIUM mmol/L 4.2 3.8 CHLORIDE mmol/L 103 102 CO2 mmol/L 25 25 BUN mg/dL 14 14 CREATININE mg/dL 0.82 0.77 GLUCOSE mg/dL 83 96 CALCIUM mg/dL 8.4* 8.7* Calcium corrected: 8.9 LIVER PROFILE: Results from last 7 days Lab Units 08/20/24 0404 08/19/24 1738 ALK PHOS U/L 368* 416* BILIRUBIN TOTAL mg/dL 0.7 0.8 PROTEIN TOTAL g/dL 6.7 6.2* ALT U/L 22 21 AST U/L 75* 51* PT/INR: Results from last 7 days Lab Units 08/19/24 1738 APTT s 34.5* INR 1.3* CARDIAC ENZYMES: Procalcitonin: Lab Results Component Value Date PROCAL 0.04 08/19/2024 Fibrosis-4 (FIB-4) Index for Liver Fibrosis FIB-4 Calculation: 5.55 at 08/20/2024 4:04 AM Calculated from: SGOT/AST: 75 U/L at 08/20/2024 4:04 AM SGPT/ALT: 22 U/L at 08/20/2024 4:04 AM Platelets: 196 10*3/uL at 08/20/2024 3:16 AM Age: 69 years Fib-4=5.55 points- Advanced fibrosis Model for End-Stage Liver Disease MELD 3.0: 10 at 08/20/2024 4:04 AM MELD-Na: 9 at 08/20/2024 4:04 AM Calculated from: Serum Creatinine: 0.82 mg/dL (Using min of 1 mg/dL) at 08/20/2024 4:04 AM Serum Sodium: 138 mmol/L (Using max of 137 mmol/L) at 08/20/2024 4:04 AM Total Bilirubin: 0.7 mg/dL (Using min of 1 mg/dL) at 08/20/2024 4:04 AM Serum Albumin: 2.8 g/dL at 08/20/2024 4:04 AM INR(ratio): 1.3 at 08/19/2024 5:38 PM Age at listing (hypothetical): 69 years Sex: Male at 08/20/2024 4:04 AM MELD 3.0=10 POINTS: 99.1 % ESTIMATED 90 DAY SURVIVAL ASSESSMENT/PLAN: Bilateral pitting edema with dyspnea 2/2 HFrEF exacerbation, Biventricular ICD in place 07/2022 Echo 11/2023 EF 21%, Global hypokinesis, RVSP is 47 mmHg. ; BNP 12,526 (dry approx 3 - lasix 40 mg IV daily - strict I/o - metoprolol succinate 100 mg BID - used to take spironolactone 100 mg daily, torsemide 20 mg daily, losartan 25 mg daily- consider resuming once acute illness resolves - daily labs cbc, cmp, mg, ph - PT/OT -SW/CM Dyspnea with cough 2/2 possible CAP insetting of COPD (Not on home O2), CXR: Mild infiltrate in the right lung Pro castro normal, VBG (ph: 7.35, pCO2:48.6, HCO3:26.5), cefepime and azithromycin - discontinue as workup come negative -Follow up on - resp PCR - PNA PCR - resp cx - Uag - duoneb q4hrs PRN - home dulera and Spiriva - supplemental O2 88-92% Elevated alk phos R factor for liver injury=0.2-cholestatic injury -GGT -abdominal US Change in mental status prior to presentation and confusion s/p fall - currently Aox3, no focal deficit Risk for delirium - delirium protocol - fall precautions Alcohol abuse at risk for withdrawal Elevated LFT - CIWA protocol - lorazepam PO/IV 1-4 mg prn CIWA >= 8 (breakthrough) - seizure precautions - monitor LFTs Atrial fibrillation Hasbled: 2 (age and alcohol use) moderate risk for major bleeding - rate controlled - HOLD apixaban 5 mg BID - moderate risk for bleed given hx of drinking, age and hx of fall - metoprolol succinate 100mg BID Pulmonary HTN DELORES - autopap therapy CAD - no longer take rosuvastatin Tobacco use - nicotine patch Raynaud phenomenon vs Buerger's - keep extremities warm as needed - advise smoking cessation hx of non-compliance with medical care and poor outpatient follow up. FEN/GI/DVT: IVF: None Electrolytes: Monitor and replace per protocols Diet: Cardiac GI PPX: No DVT Prophylaxis: Lovenox CODE STATUS:Full DISPOSITION: Medical management of HfrEF exercebation VBG showing mild resp acidosis with CO2 retention in setting of COPD. CPAP ordered for patient. Will continue to monitor resp and volume status. documented in this encounter [facility] 08-22-2024 Note Formatting of this n ote might be different from the original. Attempted to call to talk with patient regarding home care needs. No answer on room phone. No answer on preferred line, voicemail was left on preferred line with callback information. [facility] 08-22-2024 Note Formatting of this n ote might be different from the original. Attempted to call to talk with patient regarding home care needs. No answer on room phone. No answer on preferred line, voicemail was left on preferred line with callback information. [facility] 08-22-2024 Note Formatting of this n ote might be different from the original. Care Management Progress Note Discharge Plan: Home with home care Contacted by resident that patient is refusing halfway facility recommendations. Called into patient's room and spoke with him over the phone. Patient still refusing halfway facility recommendations. Explained home care to patient. Patient states he lives alone and is agreeable to home care. Tasked home visitor to reach out to patient. Length of Stay (Days): 3 GMLOS: 3 [facility] 08-22-2024 Note Formatting of this n ote might be different from the original. Care Management Progress Note Discharge Plan: Home with home care Contacted by resident that patient is refusing halfway facility recommendations. Called into patient's room and spoke with him over the phone. Patient still refusing halfway facility recommendations. Explained home care to patient. Patient states he lives alone and is agreeable to home care. Tasked home visitor to reach out to patient. Length of Stay (Days): 3 GMLOS: 3 [facility] 08-21-2024 Nurse Note Ex- at bedside and said she is his landlord. He has not been taking his medication and needs to get his Medicare Benefits activated. She is requesting to have Case Manage or Mess Attendant see patient. [facility] 08-21-2024 Nurse Note Patient arrived to floor. Alert and oriented to month. Does not know the year. Skin check down on coccyx, now wound noted. Waiting on dinner tray. Called to have tray brought up. No shortness of breath at this time. Spoke with ex- and she states patient has not been taking home medications. [facility] 08-21-2024 Plan of care note Problem: Knowledge Deficit Goal: Patient/family/caregiver demonstrates understanding of disease process, treatment plan, medications, and discharge instructions Outcome: Progressing Problem: Urinary Incontinence Goal: Perineal skin integrity is maintained or improved Outcome: Progressing Problem: Potential for Falls Goal: I will remain free of falls Outcome: Progressing [facility] 08-21-2024 Hospital Discharge instructions Sukumar South MD - 08/21/2024 1:47 PM EST MEDICATION CHANGES: START taking: Eliquis 5 MG tablet 2 times daily Augmentin 1000-62.5 2 times daily Spironolactone 25 mg daily Losartan 12.5 daily GENERAL SIGNS AND SYMPTOMS GREEN ZONE: All Clear- Your Symptoms Are Under Control No recurrence of symptoms that led to hospitalization Able to do usual activities No fever No chest pain No shortness of breath This Means You Should: Continue taking your medications as prescribed Continue activity as tolerated Keep all doctor appointments YELLOW ZONE: Caution as Your Health may be Worsening Recurrence of symptoms that led to hospitalization Fever of 100 degrees or higher Increased fatigue or restlessness Intolerant side-effects of medications Uneasy feeling or that something is wrong This Means You Should: Call your doctor for further instructions Pedro Subramanian MD [phone] [address] [facility] [id number] RED ZONE: Medical Alert Severe or unrelieved shortness of breath at rest Unrelieved chest pain Confusion or you can't think clearly This Means You Should Call 911 Immediately MAKE AN APPOINTMENT TO FOLLOW-UP WITH YOUR PCP IN 1 WEEK: Pedro Subramanian MD [address] [facility] / [facility] [id number] Tova Strickland RN - 08/22/2024 2:20 PM EST Up as tolerated Tova Strickland RN - 08/22/2024 2:20 PM EST Resume home diet Tova Strickland RN - 08/22/2024 2:20 PM EST documented in this encounter [facility] 08-21-2024 Emergency department Note Guided back [facility] 08-21-2024 Emergency department Note Guided back Pt took off cpap around 0300, nasal cannula applied with 3L. Pt repeadly taking off the nasal cannula, MD notified. Pt's BP WNL ok to give Metoprolol per RES Dr. Gonzalez. osteopathic resident at bedside at this time. Holding IV fluids at this time per Dr. Guerin until BMP results. EMERGENCY DEPARTMENT ENCOUNTER Pt Name: Krystina Markham Birthdate 1955 Date of evaluation: 08/19/2024 ED Provider: Karthik Guerin MD CHIEF COMPLAINT Chief Complaint Patient presents with Breathing Problem Edema Altered Mental Status Fall HISTORY OF PRESENT ILLNESS I wore appropriate PPE for the entirety of this encounter. HPI Krystina Markham is a 69 y.o. male who presents to the emergency department with his ex-. She states that he is confused, has bilateral leg swelling that is been present for the last 3 weeks, and a cough. She states he has had increasing weakness. He fell yesterday. He refused transportation. She notes that he drinks every day but has not had anything to drink for the last 3 days. He normally drinks a sixpack of tall boys on a daily basis. He has a history of atrial fibrillation, congestive heart failure, COPD. He smokes 1 to 2 packs/day. Nursing Notes were reviewed. Limitations to history: None Outside historians: Additional history is provided by the patient's ex-. REVIEW OF SYSTEMS Review of Systems Constitutional: Negative for chills and fever. HENT: Positive for congestion. Negative for ear pain and sore throat. Eyes: Negative for pain and visual disturbance. Respiratory: Positive for cough and shortness of breath. Cardiovascular: Negative for chest pain and palpitations. Gastrointestinal: Negative for abdominal pain and vomiting. Genitourinary: Negative for dysuria and hematuria. Musculoskeletal: Positive for joint swelling. Negative for arthralgias and back pain. Skin: Negative for color change and rash. Neurological: Positive for weakness. Negative for seizures and syncope. All other systems reviewed and are negative. PAST MEDICAL HISTORY Past Medical History: Diagnosis Date Alcohol consumption heavy 09/10/2015 Asthma Atrial fibrillation (HCC) CHF (congestive heart failure) (HCC) 01/31/2016 COPD (chronic obstructive pulmonary disease) ([facility]) 09/10/2015 Cor, pulmonale, acute (CMS/HCC) (HCC) Deep venous thrombosis (HCC) 02/2016 Depression Hx of blood clots Obesity 09/10/2015 DELORES (obstructive sleep apnea) Pulmonary embolus ([facility]) 6 16 Raynaud phenomenon 09/10/2015 Smoker 09/10/2015 SURGICAL HISTORY Past Surgical History: Procedure Laterality Date ABDOMINAL SURGERY BRONCHOSCOPY 02/25/2020 BRONCHOSCOPY (HISTORICAL) 02/25/2020 COLONOSCOPY 10/27/[address] CHEST ANGIOGRAM W AND/OR WO IV CONTRAST 07/12/2022 CT CHEST ANGIOGRAM W AND/OR WO IV CONTRAST 07/12/2022 [facility] CT IMAGING FINGER AMPUTATION Left HERNIA REPAIR NOSE SURGERY CURRENT MEDICATIONS Previous Medications ALBUTEROL (2.5 MG/3ML) 0.083% NEBULIZER SOLUTION TAKE 3 MLS VIA NEBULIZATION ONCE NEEDED FOR WHEEZING OR SHORTNESS OF BREATH FOR UP TO 75 DOSES ELIQUIS 5 MG TABLET Take 1 tablet (5 mg) by mouth 2 times daily. NHKCDAPRBZZ-YCRRAEBZI-TSOCCL (TRELEGY ELLIPTA) 100-62.5-25 MCG/ACT AEROSOL POWDER Inhale 1 puff daily. DHFOPUMHSPG-GYXETDIHE-TAJTWR (TRELEGY ELLIPTA) 100-62.5-25 MCG/ACT AEROSOL POWDER Inhale 1 puff daily. METOPROLOL SUCCINATE XL (TOPROL-XL) 100 MG 24 HR TABLET TAKE 1 TABLET (100 MG) BY MOUTH IN THE MORNING AND 1 TABLET (100 MG) BEFORE BEDTIME. DO NOT CRUSH OR CHEW.. MONTELUKAST (SINGULAIR) 10 MG TABLET TAKE 1 TABLET BY MOUTH EVERY EVENING ALLERGIES Patient has no known allergies. FAMILY HISTORY Family History Problem Relation Name Age of Onset Asthma Father Congenital Anomaly Father Cancer Father Asthma Sister Heart disease Mother Heart disease Brother Pacemaker Mother Congenital Anomaly Sister Cancer Mother Diabetes Mother SOCIAL HISTORY Social History Socioeconomic History Marital status: Tobacco Use Smoking status: Every Day Current packs/day: 0.25 Average packs/day: 0.3 packs/day for 52.2 years (13.1 ttl pk-yrs) Types: Cigarettes Start date: 1972 Smokeless tobacco: Never Tobacco comments: 8 cig daily Substance and Sexual Activity Alcohol use: Yes Alcohol/week: 7.0 standard drinks of alcohol Types: 7 Cans of beer per week Comment: once beer daily Drug use: Never Social Drivers of Health Financial Resource Strain: Low Risk (03/02/2024) Overall Financial Resource Strain (CARDIA) Difficulty of Paying Living Expenses: Not hard at all Food Insecurity: No Food Insecurity (03/02/2024) Hunger Vital Sign Worried About Running Out of Food in the Last Year: Never true Ran Out of Food in the Last Year: Never true Transportation Needs: No Transportation Needs (03/02/2024) PRAPARE - Transportation Lack of Transportation (Medical): No Lack of Transportation (Non-Medical): No Social Connections: Socially Isolated (08/20/2024) Social Connection and Isolation Panel [NHANES] Frequency of Communication with Friends and Family: Three times a week Frequency of Social Gatherings with Friends and Family: Three times a week Attends Zoroastrian Services: Never Active Member of Clubs or Organizations: No Attends Club or Organization Meetings: Never Marital Status: Intimate Partner Violence: Not At Risk (02/14/2024) Humiliation, Afraid, Rape, and Kick questionnaire Fear of Current or Ex-Partner: No Emotionally Abused: No Physically Abused: No Sexually Abused: No Housing Stability: Low Risk (08/20/2024) Housing Stability Vital Sign Unable to Pay for Housing in the Last Year: No Number of Times Moved in the Last Year: 0 Homeless in the Last Year: No SCREENINGS Earl Coma Scale Best Eye Response: Spontaneous Best Verbal Response: Confused Best Motor Response: Follows commands [place] Coma Scale Score: 14 PHYSICAL EXAM ED Triage Vitals [08/19/24 1709] Temp Heart Rate Resp BP 36.2 C (97.1 F) 79 18 127/86 SpO2 Temp Source Heart Rate Source Patient Position 98 % Temporal Monitor -- BP Location FiO2 (%) -- -- Physical Exam Vitals and nursing note reviewed. Constitutional: General: He is not in acute distress. Appearance: He is well-developed. Comments: The patient is an older male found lying on a cart. He is alert and and oriented. He has a frequent cough. HENT: Head: Normocephalic and atraumatic. Eyes: Conjunctiva/sclera: Conjunctivae normal. Cardiovascular: Rate and Rhythm: Normal rate. Rhythm irregular. Heart sounds: No murmur heard. Pulmonary: Effort: Pulmonary effort is normal. No respiratory distress. Breath sounds: Rhonchi present. Abdominal: Palpations: Abdomen is soft. Tenderness: There is no abdominal tenderness. Musculoskeletal: General: No swelling. Cervical back: Neck supple. Right lower leg: Edema present. Left lower leg: Edema present. Comments: The patient has 3+ edema to the lower extremities to the knees bilaterally. Skin: General: Skin is warm and dry. Capillary Refill: Capillary refill takes less than 2 seconds. Neurological: Mental Status: He is alert. Psychiatric: Mood and Affect: Mood normal. DIAGNOSTIC RESULTS RADIOLOGY (Per Emergency Physician): Interpretation per the Radiologist below, if available at the time of this note: US abdomen limited Final Result FINDINGS/IMPRESSION: Tiny amount of perihepatic ascites. Nodular hepatic contour. Report Dictated on Electronically Signed By: Ric Uriostegui MD Electronically Signed Date/Time: 08/20/2024 11:07 AM EST XR chest 2 views Final Result Interstitial pulmonary edema with bilateral pleural effusions. Report Dictated on Electronically Signed By: Reese Bear DR Electronically Signed Date/Time: 08/20/2024 6:42 AM EST XR chest 1 view Final Result LABS: Labs Reviewed LEGIONELLA AND STREPTOCOCCUS URINE ANTIGEN - Abnormal Result Value Legionella pneumophila Ag Not Detected Streptococcus pneumoniae Ag Detected (*) Narrative: Methodology: Lateral flow enzyme immunoassay This assay is approved for detection of antigens to Streptococcus pneumoniae and Legionella pneumophila serogroup 1; however, other L. pneumophila serogroups may also be detected. CBC WITH AUTO DIFFERENTIAL - Abnormal Auto WBC 7.0 RBC 4.20 (*) Hemoglobin 13.2 Hematocrit 39.7 (*) MCV 94.5 MCH 31.4 MCHC 33.2 RDW 14.6 Platelets 145 MPV 10.5 nRBC 0.0 Neutrophils Relative 76.9 Lymphocytes Relative 10.5 (*) Monocytes Relative 9.5 Eosinophils Relative 1.8 Basophils Relative 1.0 Immature Grans % 0.3 Neutrophils Absolute 5.4 Lymphocytes Absolute 0.7 (*) Monocytes Absolute 0.7 Eosinophils Absolute 0.1 Basophils Absolute 0.1 Immature Grans Absolute 0.0 IPF 4 PROTHROMBIN TIME - Abnormal PROTHROMBIN TIME 14.2 (*) INR 1.3 (*) APTT - Abnormal APTT 34.5 (*) Narrative: NOTE: The therapeutic time for Heparin anticoagulation, based on Xa activity inhibition, is an APTT of 46-80 seconds. COMPREHENSIVE METABOLIC PANEL - Abnormal SODIUM 136 POTASSIUM 3.8 CHLORIDE 102 CARBON DIOXIDE 25 ANION GAP 9 UREA NITROGEN 14 CREATININE 0.77 GLUCOSE 96 CALCIUM 8.7 (*) AST (SGOT) 51 (*) ALT 21 ALKALINE PHOSPHATASE 416 (*) ALBUMIN 2.8 (*) BILIRUBIN, TOTAL 0.8 TOTAL PROTEIN 6.2 (*) eGFR >90.0 HIGH SENSITIVITY TROPONIN, SERIAL BASELINE - Abnormal Troponin HS, Serial Baseline 37 (*) NT PRO BNP - Abnormal NT PRO BNP 12,526 (*) COMPLETE URINALYSIS - Abnormal Color, Urine Yellow Clarity, Urine Clear pH, Urine 6.0 Leukocytes, Urine Negative Nitrite, Urine Positive (*) Protein, Urine 10 (*) Glucose, Urine Normal Bilirubin, Urine Negative Ketones, Urine Negative Urobilinogen, Urine Normal Blood, Urine Negative RBC, Urine 0-2 WBC, Urine 3-5 Squamous Epithelial, Urine Negative Bacteria, Urine Few (*) Mucus, Urine Few Hyaline Casts, Urine 3-5 (*) SPECIFIC GRAVITY OF URINE (NUMERIC) 1.009 CBC WITH AUTO DIFFERENTIAL - Abnormal Auto WBC 7.5 RBC 4.10 (*) Hemoglobin 13.0 Hematocrit 38.5 (*) MCV 93.9 MCH 31.7 MCHC 33.8 RDW 14.7 Platelets 196 MPV 11.6 nRBC 0.0 Neutrophils Relative 73.3 Lymphocytes Relative 11.4 (*) Monocytes Relative 12.1 Eosinophils Relative 1.9 Basophils Relative 0.9 Immature Grans % 0.4 Neutrophils Absolute 5.5 Lymphocytes Absolute 0.9 (*) Monocytes Absolute 0.9 Eosinophils Absolute 0.1 Basophils Absolute 0.1 Immature Grans Absolute 0.0 BLOOD GAS, VENOUS - Abnormal pH, Venous 7.300 (*) pCO2, Venous 61.0 (*) pO2, Venous 21.1 HCO3, Venous 29.3 O2 Sat, Venous 29.1 Base Excess, Venous 1.4 Hgb, blood gas 14.4 TCO2, Venous 31.2 (*) Source Of Oxygen Nasal cannula Narrative: Assessment of oxygenation is best done with an arterial blood gas determination. Reference ranges for pO2, bicarbonate, and base excess are for mixed venous blood. Specimens drawn from a peripheral vein will often have higher values. COMPREHENSIVE METABOLIC PANEL - Abnormal SODIUM 138 POTASSIUM 4.2 CHLORIDE 103 CARBON DIOXIDE 25 ANION GAP 10 UREA NITROGEN 14 CREATININE 0.82 GLUCOSE 83 CALCIUM 8.4 (*) AST (SGOT) 75 (*) ALT 22 ALKALINE PHOSPHATASE 368 (*) ALBUMIN 2.8 (*) BILIRUBIN, TOTAL 0.7 TOTAL PROTEIN 6.7 eGFR >90.0 GAMMA GT - Abnormal GGT 98 (*) SARS-COV-2, FLU A/B, AND RSV COMBO - Normal SARS-CoV-2 Not Detected Respiratory Syncytial Virus Not Detected Influenza A Not Detected Influenza B Not Detected Narrative: Methodology: real-time, RT-PCR The SARS-CoV-2, Flu A/B, and RSV Combo assay is intended for in vitro diagnostic use under the FDA Emergency Use Authorization (EUA). This test has not been FDA cleared or approved. In compliance with this authorization, please visit www.fda.gov/media/511482/download or www.fda.gov/media/272534/download to access the applicable information sheets. BLOOD CULTURE - Normal Blood Culture Blood culture incubation started Narrative: Blood Collection Site: Right Antecubital BLOOD CULTURE - Normal Blood Culture Blood culture incubation started Narrative: Blood Collection Site: Left Hand RESPIRATORY PATHOGENS PANEL BY PCR - Normal SARS-CoV-2 Not Detected Adenovirus Not Detected Coronavirus HKU1 Not Detected Coronavirus NL63 Not Detected Coronavirus 229E Not Detected Coronavirus OC43 Not Detected Human Metapneumovirus Not Detected Human Rhinovirus/Enterovirus Not Detected Influenza A Not Detected Influenza B Not Detected Parainfluenza 1 Not Detected Parainfluenza 2 Not Detected Parainfluenza 3 Not Detected Parainfluenza 4 Not Detected Respiratory Syncytial Virus Not Detected Bordetella pertussis Not Detected Bordetella parapertussis Not Detected Chlamydia pneumoniae Not Detected Mycoplasma pneumoniae Not Detected Narrative: Methodology: Multiplex PCR AMMONIA - Normal AMMONIA 22 ETHANOL - Normal ETHANOL IN SER/PLAS <10 Narrative: SHEARING MACHINE FEEDER depression is seen >100 mg/dL. NOTE: This result is for medical treatment only. Analysis performed using non-forensic procedures. LACTIC ACID WITH REFLEX - Normal LACTIC ACID 1.3 MAGNESIUM - Normal MAGNESIUM 1.7 Narrative: Higher values can be expected in females during menses. MAGNESIUM - Normal MAGNESIUM 1.6 Narrative: Higher values can be expected in females during menses. PHOSPHORUS - Normal PHOSPHORUS 2.8 PHOSPHORUS - Normal PHOSPHORUS 2.8 PROCALCITONIN TEST - Normal PROCALCITONIN 0.04 Narrative: PCT <0.50 = Low risk of severe sepsis and/or septic shock. PCT >2.00 = High risk of severe sepsis and/or septic shock. LEGIONELLA AND STREPTOCOCCUS URINE ANTIGEN, ORDERABLE Narrative: The following orders were created for panel order Legionella and Streptococcus Urine Antigen. Procedure Abnormality Status --------- ------ Legionella and Streptoco...[[id number]] Abnormal Final result Urine Hold Cup[[id number]] Final result Please view results for these tests on the individual orders. RESPIRATORY CULTURE AND STAIN PNEUMONIA PCR PANEL COMPLETE URINALYSIS WITH REFLEX TO CULTURE Narrative: The following orders were created for panel order Urinalysis complete with reflex to Culture. Procedure Abnormality Status --------- ------ Complete Urinalysis[[id number]] Abnormal Final result Please view results for these tests on the individual orders. HIGH SENSITIVITY TROPONIN, SERIAL, SECOND TEST Troponin HS, Serial Second 35 Troponin HS Delta, Baseline to Second -2 COMPREHENSIVE METABOLIC PANEL WITH MG REFLEX Narrative: The following orders were created for panel order Comprehensive Metabolic Panel w/ Mg Reflex. Procedure Abnormality Status --------- ------ Comprehensive metabolic ...[[id number]] Abnormal Final result Please view results for these tests on the individual orders. URINE HOLD CUP Extra Tube Hold for add-ons. BLOOD GAS, VENOUS pH, Venous 7.354 pCO2, Venous 48.6 pO2, Venous 28.5 HCO3, Venous 26.5 O2 Sat, Venous 51.1 Base Excess, Venous 0.3 Hgb, blood gas 14.3 TCO2, Venous 28.0 Source Of Oxygen 2L Narrative: Assessment of oxygenation is best done with an arterial blood gas determination. Reference ranges for pO2, bicarbonate, and base excess are for mixed venous blood. Specimens drawn from a peripheral vein will often have higher values. AFP TUMOR MARKER ([facility]ST) All other labs were within normal range or not returned as of this dictation. EMERGENCY DEPARTMENT COURSE and DIFFERENTIAL DIAGNOSIS/MDM: Vitals: Vitals: 08/20/24 0817 08/20/24 1003 08/20/24 1142 08/20/24 1333 BP: 112/88 108/79 114/81 129/89 BP Location: Left arm Left arm Patient Position: Lying Sitting Pulse: 98 80 81 82 Resp: 20 19 Temp: TempSrc: SpO2: 98% 95% 95% 97% Weight: Height: Medications Administered in the ED: Medications mometasone-formoterol (Dulera 100) 100-5 MCG/ACT inhaler 2 puff (2 puffs Inhalation Given 08/20/24 0818) tiotropium (Spiriva Respimat) 2.5 MCG/ACT inhaler 2 puff (2 puffs Inhalation Given 08/20/24818) metoprolol succinate XL (Toprol-XL) 24 hr tablet 100 mg (100 mg Oral Given 08/20/24819) montelukast (Singulair) tablet 10 mg (10 mg Oral Given 08/19/242253) enoxaparin (Lovenox) syringe 40 mg (40 mg SubCUTAneous Given 08/20/24819) acetaminophen (Tylenol) tablet 650 mg (has no administration in time range) Or acetaminophen (Tylenol) suppository 650 mg (has no administration in time range) polyethylene glycol (PEG) 3350 (Miralax) packet 17 g (has no administration in time range) nicotine (Nicoderm, Step 1) 21 MG/24HR patch 1 patch (1 patch TransDERmal Medication Applied 08/20/24820) Followed by nicotine (Nicoderm, Step 2) 14 MG/24HR patch 1 patch (has no administration in time range) Followed by nicotine (Nicoderm, Step 3) 7 MG/24HR patch 1 patch (has no administration in time range) ipratropium-albuterol (Duo-Neb) 0.5-2.5 mg/3 mL nebulizer solution 3 mL (3 mL Nebulization Given 08/19/242253) thiamine (Vitamin B1) tablet 100 mg (100 mg Oral Given 08/20/24820) folic acid (Folvite) tablet 1 mg (1 mg Oral Given 08/20/24820) influenza vaccine A&B surf ant adjuvanted (Fluad) HIGH-DOSE injection 0.5 mL (has no administration in time range) LORazepam (Ativan) tablet 1 mg (has no administration in time range) Or LORazepam (Ativan) injection 1 mg (has no administration in time range) Or LORazepam (Ativan) tablet 2 mg (has no administration in time range) Or LORazepam (Ativan) injection 2 mg (has no administration in time range) Or LORazepam (Ativan) tablet 3 mg (has no administration in time range) Or LORazepam (Ativan) injection 3 mg (has no administration in time range) Or LORazepam (Ativan) tablet 4 mg (has no administration in time range) Or LORazepam (Ativan) injection 4 mg (has no administration in time range) prochlorperazine (Compazine) tablet 10 mg (has no administration in time range) Or prochlorperazine (Compazine) injection 10 mg (has no administration in time range) Or prochlorperazine (Compazine) suppository 25 mg (has no administration in time range) guaiFENesin (Mucinex) 12 hr tablet 600 mg (600 mg Oral Given 08/20/24 0821) furosemide (Lasix) injection 40 mg (has no administration in time range) cefTRIAXone (Rocephin) 1,000 mg in sodium chloride 0.9 % 50 mL IVPB Mini-Bag Plus (has no administration in time range) cefTRIAXone (Rocephin) 1,000 mg in sodium chloride 0.9 % 50 mL IVPB Mini-Bag Plus (0 mg IntraVENous Stopped 08/19/24 194) azithromycin (Zithromax) 500 mg in sodium chloride 0.9 % 250 mL IVPB (ADD-Barnum) (0 mg IntraVENous Stopped 08/19/242153) PHENobarbital tablet 64.8 mg (64.8 mg Oral Given 08/19/24 184) I Karthik Guerin MD am the director of institutional giving of record. PROCEDURES: Unless otherwise noted below, none Procedures Differential Diagnosis Considerations: Differential diagnosis includes hepatic encephalopathy, congestive heart failure, acute coronary syndrome, metabolic abnormality, alcohol withdrawal. ED testing and evaluation will be obtained to help differentiate these diagnostic possibilities and determine the most likely cause. Sources of History: I evaluated other historical sources including previous outpatient records and admission records. ED Course: In the emergency department I initially evaluated the patient with a history and physical examination in order to determine diagnostic testing and therapeutic care. On the basis of this history and physical examination the patient is given intravenous fluids. Laboratory work will be obtained to further evaluate. Reassessment: The patient is subsequently admitted for care of the pneumonia in the right lower lobe as well as evidence of heart failure. Consideration of Admission/Observation: The patient will likely require admission for further evaluation. Independent Interpretation of Tests: I independently evaluated the results of the patient's diagnostic testing in the context of the patient's presentation. Diagnostic Tests Considered but not Performed: I considered a CT scan of the head. However this appears to be chronic. Prescription Medications Considered but not Prescribed: I considered the prescription and administration of narcotics for this patient's discomfort. However, at this time I do not believe that narcotics would be indicated. Chronic Conditions Affecting Care: Patient drinks alcohol on a nearly daily basis. FINAL IMPRESSION 1. Pneumonia of right lower lobe due to infectious organism 2. Chronic congestive heart failure, unspecified heart failure type (HCC) 3. Atrial fibrillation, unspecified type (HCC) DISPOSITION Admit 08/19/2024 09:56:50 PM PATIENT REFERRED TO: No follow-up provider specified. DISCHARGE MEDICATIONS: New Prescriptions No medications on file (Comment: Please note this report has been produced using speech recognition software and may contain errors related to that system including errors in grammar, punctuation, and spelling, as well as words and phrases that may be inappropriate. If there are any questions or concerns please feel free to contact the dictating provider for clarification.) Karthik Guerin MD (electronically signed) Emergency Medicine Provider Karthik Guerin MD 08/20/24 1505 Pt denies any pain. Per family, everything hurts. Pt fell last night, neighbor got EMS from across the street to eval him, pt declined transport at that time. Family feels he is confused at this time. Family states he drinks at least a 6 pack of tall boys per day, states has not had anything today or yesterday. Also complaints of abdominal swelling, hard time breathing and swelling to bilateral legs. Just noted the confusion today. Swelling has been ongoing x 3 weeks. documented in this encounter [facility] 08-21-2024 Emergency department Note Pt took off cpap around 0300, nasal cannula applied with 3L. Pt repeadly taking off the nasal cannula, notified. [facility] 08-20-2024 Emergency department Note Pt's BP WNL ok to give Metoprolol per RES Dr. Gonzalez. [facility] 08-20-2024 Nurse Note This [facility] RN saw patient on consult for ETOH abuse. I introduced myself/role and patient agreed to answer questions. Patient confirmed he fell while at a bar but denies drinking day of fall. 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 He states he drinks beer daily. He buys 6 Tall Boys every week. States he used to drink more but denies drinking the 12 pack daily recently. Stated he lives in an apartment owned by his ex-. Per patient, she does not live with him and does not know what he does. Denies withdrawal symptoms when he stops drinking. Denies blackouts and states he remembers what he has done the day before for the most part. Patient knew the month, answered 2016 to the year, could add 3+3 correctly, answered incorrectly to 7-3. Knew his and where he was at. I reviewed the consequences of drinking and his state of health. He does not think he has a problem with alcohol. He started drinking and smoking at age 14. Reviewed [facility] addiction support programs with patient. He accepted handouts for First Step and IOP but refused addiction services. [facility] 08-19-2024 Emergency department Note osteopathic resident at bedside at this time. [facility] 08-19-2024 History and physical note Images from the original note were not included. Medical Teaching Service History & Physical Patient: Krystina Markham : 1955 Acct: [id number] PCP: Pedro Subramanian MD Admitting Physician: No admitting provider for patient encounter. Admission Date: 08/19/2024 Chief Complaint Patient presents with Breathing Problem Edema Altered Mental Status Fall History of Presenting Illness: 69 y.o. male presented to ED with SOB, bilateal leg swelling and confusion and fall. Hx collected from ED provider and patient. Pmhx of alcohol use, COPD, HFrEF, Atrial fib- rate controlled, biventricular ICD, CAD, tobacco use (1-2 pack daily), DELORES uses pap machine. Patient brought in by his ex- who stated that patient has been confused for the past few days, having worsening SOB with cough, and bilaterally leg swelling. Patient also had a fall few days ago, according to patient he slipped at the bar and did hit his head. Patient states that people at the bar helped him. Logan states that he lives alone but his ex- will help him. Patient states that he drinks "6 pack, tall boys" daily, last drink was couple of days ago. On assessment, patient states that his SOB and leg swelling is bothering him the most. Asked patient if he felt like he was withdrawing from alcohol he denied it. Past Medical History: Diagnosis Date Alcohol consumption heavy 09/10/2015 Asthma Atrial fibrillation (HCC) CHF (congestive heart failure) ([facility]) 01/31/2016 COPD (chronic obstructive pulmonary disease) ([facility]) 09/10/2015 Cor, pulmonale, acute (CMS/HCC) ([facility]) Deep venous thrombosis ([facility]) 02/2016 Depression Hx of blood clots Obesity 09/10/2015 DELORES (obstructive sleep apnea) Pulmonary embolus ([facility]) 6 16 Raynaud phenomenon 09/10/2015 Smoker 09/10/2015 Past Surgical History: Procedure Laterality Date ABDOMINAL SURGERY BRONCHOSCOPY 02/25/2020 BRONCHOSCOPY (HISTORICAL) 02/25/2020 COLONOSCOPY 10/27/[address] CHEST ANGIOGRAM W AND/OR WO IV CONTRAST 07/12/2022 CT CHEST ANGIOGRAM W AND/OR WO IV CONTRAST 07/12/2022 [facility] CT IMAGING FINGER AMPUTATION Left HERNIA REPAIR NOSE SURGERY Social History Socioeconomic History Marital status: Spouse name: Not on file Number of children: Not on file Years of education: Not on file Highest education level: Not on file Occupational History Not on file Tobacco Use Smoking status: Every Day Current packs/day: 0.25 Average packs/day: 0.3 packs/day for 52.2 years (13.1 ttl pk-yrs) Types: Cigarettes Start date: 1972 Smokeless tobacco: Never Tobacco comments: 8 cig daily Substance and Sexual Activity Alcohol use: Yes Alcohol/week: 7.0 standard drinks of alcohol Types: 7 Cans of beer per week Comment: once beer daily Drug use: Never Sexual activity: Not on file Other Topics Concern Not on file Social History Narrative Not on file Social Drivers of Health Financial Resource Strain: Low Risk (03/02/2024) Overall Financial Resource Strain (CARDIA) Difficulty of Paying Living Expenses: Not hard at all Food Insecurity: No Food Insecurity (03/02/2024) Hunger Vital Sign Worried About Running Out of Food in the Last Year: Never true Ran Out of Food in the Last Year: Never true Transportation Needs: No Transportation Needs (03/02/2024) PRAPARE - Transportation Lack of Transportation (Medical): No Lack of Transportation (Non-Medical): No Physical Activity: Not on file Stress: Not on file Social Connections: Not on file Intimate Partner Violence: Not At Risk (02/14/2024) Humiliation, Afraid, Rape, and Kick questionnaire Fear of Current or Ex-Partner: No Emotionally Abused: No Physically Abused: No Sexually Abused: No Housing Stability: Not on file Family History Problem Relation Name Age of Onset Asthma Father Congenital Anomaly Father Cancer Father Asthma Sister Heart disease Mother Heart disease Brother Pacemaker Mother Congenital Anomaly Sister Cancer Mother Diabetes Mother No current facility-administered medications on file prior to encounter. Current Outpatient Medications on File Prior to Encounter Medication Sig Dispense Refill albuterol (2.5 MG/3ML) 0.083% nebulizer solution TAKE 3 MLS VIA NEBULIZATION ONCE NEEDED FOR WHEEZING OR SHORTNESS OF BREATH FOR UP TO 75 DOSES 75 mL 2 Eliquis 5 MG tablet Take 1 tablet (5 mg) by mouth 2 times daily. 60 tablet 2 Bncvsizrgjs-Gnzspekyv-Tjmokb (Trelegy Ellipta) 100-62.5-25 MCG/ACT aerosol powder Inhale 1 puff daily. 2 each 0 Baifmbdiaiq-Dqgnzcpwe-Ecsdgv (Trelegy Ellipta) 100-62.5-25 MCG/ACT aerosol powder Inhale 1 puff daily. 2 each 0 metoprolol succinate XL (Toprol-XL) 100 MG 24 hr tablet TAKE 1 TABLET (100 MG) BY MOUTH IN THE MORNING AND 1 TABLET (100 MG) BEFORE BEDTIME. DO NOT CRUSH OR CHEW.. 180 tablet 0 montelukast (Singulair) 10 MG tablet TAKE 1 TABLET BY MOUTH EVERY EVENING 90 tablet 0 Allergies: Patient has no known allergies. Review of Systems Constitutional: Positive for fatigue. Negative for chills and fever. Respiratory: Positive for cough, shortness of breath and wheezing. Cardiovascular: Positive for leg swelling. Negative for chest pain and palpitations. Gastrointestinal: Positive for abdominal distention. Negative for abdominal pain, constipation, diarrhea, nausea and vomiting. Genitourinary: Negative for difficulty urinating and dysuria. Neurological: Negative for syncope. Vitals: Vitals: 08/19/24 1706 08/19/24 1709 08/19/24 1947 BP: 127/86 (!) 119/94 BP Location: Right arm Patient Position: Sitting Pulse: 79 85 Resp: 18 22 Temp: 36.2 C (97.1 F) TempSrc: Temporal SpO2: 98% 97% Weight: 195 lb (88.5 kg) Height: 5' 9" (1.753 m) On room air Physical Exam Vitals and nursing note reviewed. Constitutional: Appearance: He is obese. He is ill-appearing. HENT: Head: Normocephalic and atraumatic. Cardiovascular: Rate and Rhythm: Normal rate. Rhythm irregular. Pulses: Normal pulses. Heart sounds: Normal heart sounds. No murmur heard. Pulmonary: Breath sounds: Wheezing (bilaterally, diffuse) present. Comments: Course breath sounds bilaterally. Mild sternal tucking and abdominal breathing, pursed lip breathing Abdominal: General: Bowel sounds are normal. There is distension. Palpations: Abdomen is soft. Tenderness: There is no abdominal tenderness. There is no guarding or rebound. Hernia: No hernia is present. Musculoskeletal: General: Swelling present. Normal range of motion. Right lower leg: Edema present. Left lower leg: Edema present. Comments: Pitting edema +3 mid quintanilla, tender feet to touch, erythematous and taut skin Skin: General: Skin is warm. Findings: Lesion (healing scratch rojas all over arms and legs) present. 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 Mental Status: He is alert. Comments: Alert and orientated to self, place and month Labs: Results for orders placed or performed during the hospital encounter of 08/19/24 ECG 12 lead Collection Time: 08/19/24 5:31 PM Result Value Ref Range Heart Rate 88 bpm QRSD Interval 167 ms QT Interval 446 ms QTC Interval 540 ms P [place] 0 degrees QRS [place] 250 degrees T Wave [place] 87 degrees VA Interval 0 ms CBC auto differential Collection Time: 08/19/24 5:38 PM Result Value Ref Range Auto WBC 7.0 3.6 - 10.7 10*3/uL RBC 4.20 (L) 4.40 - 5.90 10*6/uL Hemoglobin 13.2 13.0 - 18.0 g/dL Hematocrit 39.7 (L) 40.0 - 52.0 % MCV 94.5 77.0 - 99.0 fL MCH 31.4 26.0 - 34.0 pg MCHC 33.2 30.5 - 36.0 % RDW 14.6 11.5 - 15.0 % Platelets 145 140 - 440 10*3/uL MPV 10.5 9.0 - 12.7 fL nRBC 0.0 0.0 - 2.0 /100 WBCs Neutrophils Relative 76.9 38.0 - 82.0 % Lymphocytes Relative 10.5 (L) 15.0 - 45.0 % Monocytes Relative 9.5 5.0 - 13.0 % Eosinophils Relative 1.8 0.0 - 6.0 % Basophils Relative 1.0 0.0 - 2.0 % Immature Grans % 0.3 0.0 - 2.0 % Neutrophils Absolute 5.4 1.8 - 7.5 10*3/uL Lymphocytes Absolute 0.7 (L) 1.0 - 4.3 10*3/uL Monocytes Absolute 0.7 0.0 - 0.9 10*3/uL Eosinophils Absolute 0.1 0.0 - 0.5 10*3/uL Basophils Absolute 0.1 0.0 - 0.2 10*3/uL Immature Grans Absolute 0.0 <0.1 10*3/uL IPF 4 Protime-INR Collection Time: 08/19/24 5:38 PM Result Value Ref Range PROTHROMBIN TIME 14.2 (H) 9.0 - 12.0 s INR 1.3 (H) 0.9 - 1.1 APTT Collection Time: 08/19/24 5:38 PM Result Value Ref Range APTT 34.5 (H) 20.0 - 30.5 s Comprehensive metabolic panel Collection Time: 08/19/24 5:38 PM Result Value Ref Range SODIUM 136 136 - 145 mmol/L POTASSIUM 3.8 3.5 - 5.1 mmol/L CHLORIDE 102 98 - 107 mmol/L CARBON DIOXIDE 25 23 - 31 mmol/L ANION GAP 9 3 - 13 mmol/L UREA NITROGEN 14 9 - 23 mg/dL CREATININE 0.77 0.72 - 1.25 mg/dL GLUCOSE 96 82 - 115 mg/dL CALCIUM 8.7 (L) 8.8 - 10.0 mg/dL AST (SGOT) 51 (H) <34 U/L ALT 21 <40 U/L ALKALINE PHOSPHATASE 416 (H) 40 - 150 U/L ALBUMIN 2.8 (L) 3.4 - 4.8 g/dL BILIRUBIN, TOTAL 0.8 <1.2 mg/dL TOTAL PROTEIN 6.2 (L) 6.4 - 8.3 g/dL eGFR >90.0 >60.0 mL/min/1.73m*2 Ammonia Collection Time: 08/19/24 5:38 PM Result Value Ref Range AMMONIA 22 18 - 72 umol/L Serial Troponin, High Sensitivity Collection Time: 08/19/24 5:38 PM Result Value Ref Range Troponin HS, Serial Baseline 37 (H) <=35 ng/L NT PRO BNP Collection Time: 08/19/24 5:38 PM Result Value Ref Range NT PRO BNP 12,526 (H) <125 pg/mL Ethanol Collection Time: 08/19/24 5:38 PM Result Value Ref Range ETHANOL IN SER/PLAS <10 <10 mg/dL SARS-CoV-2, Flu A/B, and RSV Combo Collection Time: 08/19/24 5:39 PM Specimen: Nasopharynx; Swab Result Value Ref Range SARS-CoV-2 Not Detected Not Detected Respiratory Syncytial Virus Not Detected Not Detected Influenza A Not Detected Not Detected Influenza B Not Detected Not Detected Lactic acid with reflex Collection Time: 08/19/24 6:29 PM Result Value Ref Range LACTIC ACID 1.3 0.5 - 2.2 mmol/L Troponin, High Sensitivity, Serial, Second Test Collection Time: 08/19/24 7:47 PM Result Value Ref Range Troponin HS, Serial Second 35 <=35 ng/L Troponin HS Delta, Baseline to Second -2 <=2 ng/L Radiology review: ECG 12 lead Atrial fibrillation Left bundle branch block ST elevation secondary to IVCD Electronically Signed On 08-19-2024 18:25:03 EST by Karthik Guerin XR chest 1 view [facility] KRYST[facility] 1955 [id number] Exam Date/Time: 08/19/2024 17:48 Procedure: XR CHEST 1 VIEW Ordering Provider: GUERIN MICHAEL Reason For Exam: cough Chest one view HISTORY: Cough COMPARISON: 11/12/2023 Cardiomegaly. Cardiac pacer located on left side. Mild infiltrate in the right lung base. No pleural effusions. Report Dictated on Electronically Signed By: Paul Leiva MD Electronically Signed Date/Time: 08/19/2024 6:07 PM EST EKG: Atrial fibrillation, LBBB, HR 88, no acute ischemic changes, QTC 540 ED medications: Medications sodium chloride 0.9 % bolus 1,000 mL (1,000 mL IntraVENous Not Given 08/19/241817) azithromycin (Zithromax) 500 mg in sodium chloride 0.9 % 250 mL IVPB (ADD-Barnum) (500 mg IntraVENous New Bag 08/19/241940) cefTRIAXone (Rocephin) 1,000 mg in sodium chloride 0.9 % 50 mL IVPB Mini-Bag Plus (0 mg IntraVENous Stopped 08/19/241940) PHENobarbital tablet 64.8 mg (64.8 mg Oral Given 08/19/24 184) ED COURSE: Got 1 L NS bolus, got Azithromycin and CTX, one dose of phenobarb given ASSESSMENT/PLAN: Bilateral pitting edema with dyspnea 2/2 HFrEF exacerbation, Biventricular ICD in place 07/2022 Echo 11/2023 EF 21%, Global hypokinesis, RVSP is 47 mmHg. ; BNP 12,526 (dry approx 3K) - admit to tele - lasix 40 mg IV daily - strict I/o - metoprolol succinate 100 mg BID - used to take spironolactone 100 mg daily, torsemide 20 mg daily, losartan 25 mg daily- consider resuming once acute illness resolves - daily labs cbc, cmp, mg, ph - PT/OT -SW/CM Dyspnea with cough 2/2 possible CAP insetting of COPD (Not on home O2), CXR: Mild infiltrate in the right lung - procal - vbg - resp PCR - PNA PCR - resp cx - Uag - cefepime and azithromycin - discontinue as workup come negative - duoneb q4hrs PRN - home dulera and Spiriva - supplemental O2 88-92% Change in mental status prior to presentation and confusion s/p fall - currently Aox3, no focal deficit Risk for delirium - delirium protocol - fall precautions Alcohol abuse at risk for withdrawal Elevated LFT - CIWA protocol - lorazepam PO/IV 1-4 mg prn CIWA >= 8 (breakthrough) - seizure precautions - monitor LFTs Atrial fibrillation Hasbled: 2 (age and alcohol use) moderate risk for major bleeding - rate controlled - HOLD apixaban 5 mg BID - moderate risk for bleed given hx of drinking, age and hx of fall - metoprolol succinate 100mg BID Pulmonary HTN DELORES - autopap therapy CAD - no longer take rosuvastatin Tobacco use - nicotine patch Raynaud phenomenon vs Buerger's - keep extremities warm as needed - advise smoking cessation hx of non-compliance with medical care and poor outpatient follow up. FEN/GI/DVT: IVF: None Electrolytes: Monitor and replace per protocols Diet: Cardiac GI PPX: No DVT Prophylaxis: Lovenox CODE STATUS: Full Problem list completed - Yes Case discussed with: Dr. Wiggins (attending) Gifty Holguin MD Pager #: [phone] 08/19/2024 8:34 PM Cosigned by Jose M Wiggins MD at 08/20/2024 7:51 AM EST [employer] [facility] 08-19-2024 Note [facility] 08-19-2024 History and physical note Images from the original note were not included. Medical Teaching Service History & Physical Patient: Krystina Markham : 1955 Acct: [id number] PCP: Pedro Subramanian MD Admitting Physician: No admitting provider for patient encounter. Admission Date: 08/19/2024 Chief Complaint Patient presents with Breathing Problem Edema Altered Mental Status Fall History of Presenting Illness: 69 y.o. male presented to ED with SOB, bilateal leg swelling and confusion and fall. Hx collected from ED provider and patient. Pmhx of alcohol use, COPD, HFrEF, Atrial fib- rate controlled, biventricular ICD, CAD, tobacco use (1-2 pack daily), DELORES uses pap machine. Patient brought in by his ex- who stated that patient has been confused for the past few days, having worsening SOB with cough, and bilaterally leg swelling. Patient also had a fall few days ago, according to patient he slipped at the bar and did hit his head. Patient states that people at the bar helped him. Patietn states that he lives alone but his ex- will help him. Patient states that he drinks "6 pack, tall boys" daily, last drink was couple of days ago. On assessment, patient states that his SOB and leg swelling is bothering him the most. Asked patient if he felt like he was withdrawing from alcohol he denied it. Past Medical History: Diagnosis Date Alcohol consumption heavy 09/10/2015 Asthma Atrial fibrillation (HCC) CHF (congestive heart failure) ([facility]) 01/31/2016 COPD (chronic obstructive pulmonary disease) ([facility]) 09/10/2015 Cor, pulmonale, acute (CMS/HCC) (HCC) Deep venous thrombosis ([facility]) 02/2016 Depression Hx of blood clots Obesity 09/10/2015 DELORES (obstructive sleep apnea) Pulmonary embolus ([facility]) 6 16 Raynaud phenomenon 09/10/2015 Smoker 09/10/2015 Past Surgical History: Procedure Laterality Date ABDOMINAL SURGERY BRONCHOSCOPY 02/25/2020 BRONCHOSCOPY (HISTORICAL) 02/25/2020 COLONOSCOPY 10/27/[address] CHEST ANGIOGRAM W AND/OR WO IV CONTRAST 07/12/2022 CT CHEST ANGIOGRAM W AND/OR WO IV CONTRAST 07/12/[address] IMAGING FINGER AMPUTATION Left HERNIA REPAIR NOSE SURGERY Social History Socioeconomic History Marital status: Spouse name: Not on file Number of children: Not on file Years of education: Not on file Highest education level: Not on file Occupational History Not on file Tobacco Use Smoking status: Every Day Current packs/day: 0.25 Average packs/day: 0.3 packs/day for 52.2 years (13.1 ttl pk-yrs) Types: Cigarettes Start date: 1972 Smokeless tobacco: Never Tobacco comments: 8 cig daily Substance and Sexual Activity Alcohol use: Yes Alcohol/week: 7.0 standard drinks of alcohol Types: 7 Cans of beer per week Comment: once beer daily Drug use: Never Sexual activity: Not on file Other Topics Concern Not on file Social History Narrative Not on file Social Drivers of Health Financial Resource Strain: Low Risk (03/02/2024) Overall Financial Resource Strain (CARDIA) Difficulty of Paying Living Expenses: Not hard at all Food Insecurity: No Food Insecurity (03/02/2024) Hunger Vital Sign Worried About Running Out of Food in the Last Year: Never true Ran Out of Food in the Last Year: Never true Transportation Needs: No Transportation Needs (03/02/2024) PRAPARE - Transportation Lack of Transportation (Medical): No Lack of Transportation (Non-Medical): No Physical Activity: Not on file Stress: Not on file Social Connections: Not on file Intimate Partner Violence: Not At Risk (02/14/2024) Humiliation, Afraid, Rape, and Kick questionnaire Fear of Current or Ex-Partner: No Emotionally Abused: No Physically Abused: No Sexually Abused: No Housing Stability: Not on file Family History Problem Relation Name Age of Onset Asthma Father Congenital Anomaly Father Cancer Father Asthma Sister Heart disease Mother Heart disease Brother Pacemaker Mother Congenital Anomaly Sister Cancer Mother Diabetes Mother No current facility-administered medications on file prior to encounter. Current Outpatient Medications on File Prior to Encounter Medication Sig Dispense Refill albuterol (2.5 MG/3ML) 0.083% nebulizer solution TAKE 3 MLS VIA NEBULIZATION ONCE NEEDED FOR WHEEZING OR SHORTNESS OF BREATH FOR UP TO 75 DOSES 75 mL 2 Eliquis 5 MG tablet Take 1 tablet (5 mg) by mouth 2 times daily. 60 tablet 2 Dwwdcfoybjk-Oevkggaqz-Tkjlvc (Trelegy Ellipta) 100-62.5-25 MCG/ACT aerosol powder Inhale 1 puff daily. 2 each 0 Jebsoflragb-Hwxgecidf-Axciog (Trelegy Ellipta) 100-62.5-25 MCG/ACT aerosol powder Inhale 1 puff daily. 2 each 0 metoprolol succinate XL (Toprol-XL) 100 MG 24 hr tablet TAKE 1 TABLET (100 MG) BY MOUTH IN THE MORNING AND 1 TABLET (100 MG) BEFORE BEDTIME. DO NOT CRUSH OR CHEW.. 180 tablet 0 montelukast (Singulair) 10 MG tablet TAKE 1 TABLET BY MOUTH EVERY EVENING 90 tablet 0 Allergies: Patient has no known allergies. Review of Systems Constitutional: Positive for fatigue. Negative for chills and fever. Respiratory: Positive for cough, shortness of breath and wheezing. Cardiovascular: Positive for leg swelling. Negative for chest pain and palpitations. Gastrointestinal: Positive for abdominal distention. Negative for abdominal pain, constipation, diarrhea, nausea and vomiting. Genitourinary: Negative for difficulty urinating and dysuria. Neurological: Negative for syncope. Vitals: Vitals: 08/19/24 1706 08/19/24 1709 08/19/24 1947 BP: 127/86 (!) 119/94 BP Location: Right arm Patient Position: Sitting Pulse: 79 85 Resp: 18 22 Temp: 36.2 C (97.1 F) TempSrc: Temporal SpO2: 98% 97% Weight: 195 lb (88.5 kg) Height: 5' 9" (1.753 m) On room air Physical Exam Vitals and nursing note reviewed. Constitutional: Appearance: He is obese. He is ill-appearing. HENT: Head: Normocephalic and atraumatic. Cardiovascular: Rate and Rhythm: Normal rate. Rhythm irregular. Pulses: Normal pulses. Heart sounds: Normal heart sounds. No murmur heard. Pulmonary: Breath sounds: Wheezing (bilaterally, diffuse) present. Comments: Course breath sounds bilaterally. Mild sternal tucking and abdominal breathing, pursed lip breathing Abdominal: General: Bowel sounds are normal. There is distension. Palpations: Abdomen is soft. Tenderness: There is no abdominal tenderness. There is no guarding or rebound. Hernia: No hernia is present. Musculoskeletal: General: Swelling present. Normal range of motion. Right lower leg: Edema present. Left lower leg: Edema present. Comments: Pitting edema +3 mid quintanilla, tender feet to touch, erythematous and taut skin Skin: General: Skin is warm. Findings: Lesion (healing scratch rojas all over arms and legs) present. 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 Mental Status: He is alert. Comments: Alert and orientated to self, place and month Labs: Results for orders placed or performed during the hospital encounter of 08/19/24 ECG 12 lead Collection Time: 08/19/24 5:31 PM Result Value Ref Range Heart Rate 88 bpm QRSD Interval 167 ms QT Interval 446 ms QTC Interval 540 ms P [place] 0 degrees QRS [place] 250 degrees T Wave [place] 87 degrees VA Interval 0 ms CBC auto differential Collection Time: 08/19/24 5:38 PM Result Value Ref Range Auto WBC 7.0 3.6 - 10.7 10*3/uL RBC 4.20 (L) 4.40 - 5.90 10*6/uL Hemoglobin 13.2 13.0 - 18.0 g/dL Hematocrit 39.7 (L) 40.0 - 52.0 % MCV 94.5 77.0 - 99.0 fL MCH 31.4 26.0 - 34.0 pg MCHC 33.2 30.5 - 36.0 % RDW 14.6 11.5 - 15.0 % Platelets 145 140 - 440 10*3/uL MPV 10.5 9.0 - 12.7 fL nRBC 0.0 0.0 - 2.0 /100 WBCs Neutrophils Relative 76.9 38.0 - 82.0 % Lymphocytes Relative 10.5 (L) 15.0 - 45.0 % Monocytes Relative 9.5 5.0 - 13.0 % Eosinophils Relative 1.8 0.0 - 6.0 % Basophils Relative 1.0 0.0 - 2.0 % Immature Grans % 0.3 0.0 - 2.0 % Neutrophils Absolute 5.4 1.8 - 7.5 10*3/uL Lymphocytes Absolute 0.7 (L) 1.0 - 4.3 10*3/uL Monocytes Absolute 0.7 0.0 - 0.9 10*3/uL Eosinophils Absolute 0.1 0.0 - 0.5 10*3/uL Basophils Absolute 0.1 0.0 - 0.2 10*3/uL Immature Grans Absolute 0.0 <0.1 10*3/uL IPF 4 Protime-INR Collection Time: 08/19/24 5:38 PM Result Value Ref Range PROTHROMBIN TIME 14.2 (H) 9.0 - 12.0 s INR 1.3 (H) 0.9 - 1.1 APTT Collection Time: 08/19/24 5:38 PM Result Value Ref Range APTT 34.5 (H) 20.0 - 30.5 s Comprehensive metabolic panel Collection Time: 08/19/24 5:38 PM Result Value Ref Range SODIUM 136 136 - 145 mmol/L POTASSIUM 3.8 3.5 - 5.1 mmol/L CHLORIDE 102 98 - 107 mmol/L CARBON DIOXIDE 25 23 - 31 mmol/L ANION GAP 9 3 - 13 mmol/L UREA NITROGEN 14 9 - 23 mg/dL CREATININE 0.77 0.72 - 1.25 mg/dL GLUCOSE 96 82 - 115 mg/dL CALCIUM 8.7 (L) 8.8 - 10.0 mg/dL AST (SGOT) 51 (H) <34 U/L ALT 21 <40 U/L ALKALINE PHOSPHATASE 416 (H) 40 - 150 U/L ALBUMIN 2.8 (L) 3.4 - 4.8 g/dL BILIRUBIN, TOTAL 0.8 <1.2 mg/dL TOTAL PROTEIN 6.2 (L) 6.4 - 8.3 g/dL eGFR >90.0 >60.0 mL/min/1.73m*2 Ammonia Collection Time: 08/19/24 5:38 PM Result Value Ref Range AMMONIA 22 18 - 72 umol/L Serial Troponin, High Sensitivity Collection Time: 08/19/24 5:38 PM Result Value Ref Range Troponin HS, Serial Baseline 37 (H) <=35 ng/L NT PRO BNP Collection Time: 08/19/24 5:38 PM Result Value Ref Range NT PRO BNP 12,526 (H) <125 pg/mL Ethanol Collection Time: 08/19/24 5:38 PM Result Value Ref Range ETHANOL IN SER/PLAS <10 <10 mg/dL SARS-CoV-2, Flu A/B, and RSV Combo Collection Time: 08/19/24 5:39 PM Specimen: Nasopharynx; Swab Result Value Ref Range SARS-CoV-2 Not Detected Not Detected Respiratory Syncytial Virus Not Detected Not Detected Influenza A Not Detected Not Detected Influenza B Not Detected Not Detected Lactic acid with reflex Collection Time: 08/19/24 6:29 PM Result Value Ref Range LACTIC ACID 1.3 0.5 - 2.2 mmol/L Troponin, High Sensitivity, Serial, Second Test Collection Time: 08/19/24 7:47 PM Result Value Ref Range Troponin HS, Serial Second 35 <=35 ng/L Troponin HS Delta, Baseline to Second -2 <=2 ng/L Radiology review: ECG 12 lead Atrial fibrillation Left bundle branch block ST elevation secondary to IVCD Electronically Signed On 08-19-2024 18:25:03 EST by Karthik Guerin XR chest 1 view [facility] 1955 [id number] Exam Date/Time: 08/19/2024 17:48 Procedure: XR CHEST 1 VIEW Ordering Provider: GUERIN MICHAEL Reason For Exam: cough Chest one view HISTORY: Cough COMPARISON: 11/12/2023 Cardiomegaly. Cardiac pacer located on left side. Mild infiltrate in the right lung base. No pleural effusions. Report Dictated on Electronically Signed By: Paul Leiva MD Electronically Signed Date/Time: 08/19/2024 6:07 PM EST EKG: Atrial fibrillation, LBBB, HR 88, no acute ischemic changes, QTC 540 ED medications: Medications sodium chloride 0.9 % bolus 1,000 mL (1,000 mL IntraVENous Not Given 08/19/241817) azithromycin (Zithromax) 500 mg in sodium chloride 0.9 % 250 mL IVPB (ADD-Barnum) (500 mg IntraVENous New Bag 08/19/241940) cefTRIAXone (Rocephin) 1,000 mg in sodium chloride 0.9 % 50 mL IVPB Mini-Bag Plus (0 mg IntraVENous Stopped 08/19/241940) PHENobarbital tablet 64.8 mg (64.8 mg Oral Given 08/19/241848) ED COURSE: Got 1 L NS bolus, got Azithromycin and CTX, one dose of phenobarb given ASSESSMENT/PLAN: Bilateral pitting edema with dyspnea 2/2 HFrEF exacerbation, Biventricular ICD in place 07/2022 Echo 11/2023 EF 21%, Global hypokinesis, RVSP is 47 mmHg. ; BNP 12,526 (dry approx 3K) - admit to tele - lasix 40 mg IV daily - strict I/o - metoprolol succinate 100 mg BID - used to take spironolactone 100 mg daily, torsemide 20 mg daily, losartan 25 mg daily- consider resuming once acute illness resolves - daily labs cbc, cmp, mg, ph - PT/OT -SW/CM Dyspnea with cough 2/2 possible CAP insetting of COPD (Not on home O2), CXR: Mild infiltrate in the right lung - procal - vbg - resp PCR - PNA PCR - resp cx - Uag - cefepime and azithromycin - discontinue as workup come negative - duoneb q4hrs PRN - home dulera and Spiriva - supplemental O2 88-92% Change in mental status prior to presentation and confusion s/p fall - currently Aox3, no focal deficit Risk for delirium - delirium protocol - fall precautions Alcohol abuse at risk for withdrawal Elevated LFT - CIWA protocol - lorazepam PO/IV 1-4 mg prn CIWA >= 8 (breakthrough) - seizure precautions - monitor LFTs Atrial fibrillation Hasbled: 2 (age and alcohol use) moderate risk for major bleeding - rate controlled - HOLD apixaban 5 mg BID - moderate risk for bleed given hx of drinking, age and hx of fall - metoprolol succinate 100mg BID Pulmonary HTN DELORES - autopap therapy CAD - no longer take rosuvastatin Tobacco use - nicotine patch Raynaud phenomenon vs Buerger's - keep extremities warm as needed - advise smoking cessation hx of non-compliance with medical care and poor outpatient follow up. FEN/GI/DVT: IVF: None Electrolytes: Monitor and replace per protocols Diet: Cardiac GI PPX: No DVT Prophylaxis: Lovenox CODE STATUS: Full Problem list completed - Yes Case discussed with: Dr. Wiggins (attending) Gifty Holguin MD Pager #: [phone] 08/19/2024 8:34 PM Cosigned by Jose M Wiggins MD at 08/20/2024 7:51 AM EST documented in this encounter [facility] 08-19-2024 Emergency department Note Holding IV fluids at this time per Dr. Guerin until BMP results. [facility] 08-19-2024 Emergency department Triage note Pt denies any pain. Per family, everything hurts. Pt fell last night, neighbor got EMS from across the street to eval him, pt declined transport at that time. Family feels he is confused at this time. Family states he drinks at least a 6 pack of tall boys per day, states has not had anything today or yesterday. Also complaints of abdominal swelling, hard time breathing and swelling to bilateral legs. Just noted the confusion today. Swelling has been ongoing x 3 weeks. [facility] 08-19-2024 Physician Emergency department Note EMERGENCY DEPARTMENT ENCOUNTER Pt Name: Krystina Markham Birthdate 1955 Date of evaluation: 08/19/2024 ED Provider: Karthik Guerin MD CHIEF COMPLAINT Chief Complaint Patient presents with Breathing Problem Edema Altered Mental Status Fall HISTORY OF PRESENT ILLNESS I wore appropriate PPE for the entirety of this encounter. HPI Krystina Markham is a 69 y.o. male who presents to the emergency department with his ex-. She states that he is confused, has bilateral leg swelling that is been present for the last 3 weeks, and a cough. She states he has had increasing weakness. He fell yesterday. He refused transportation. She notes that he drinks every day but has not had anything to drink for the last 3 days. He normally drinks a sixpack of tall boys on a daily basis. He has a history of atrial fibrillation, congestive heart failure, COPD. He smokes 1 to 2 packs/day. Nursing Notes were reviewed. Limitations to history: None Outside historians: Additional history is provided by the patient's ex-. REVIEW OF SYSTEMS Review of Systems Constitutional: Negative for chills and fever. HENT: Positive for congestion. Negative for ear pain and sore throat. Eyes: Negative for pain and visual disturbance. Respiratory: Positive for cough and shortness of breath. Cardiovascular: Negative for chest pain and palpitations. Gastrointestinal: Negative for abdominal pain and vomiting. Genitourinary: Negative for dysuria and hematuria. Musculoskeletal: Positive for joint swelling. Negative for arthralgias and back pain. Skin: Negative for color change and rash. Neurological: Positive for weakness. Negative for seizures and syncope. All other systems reviewed and are negative. PAST MEDICAL HISTORY Past Medical History: Diagnosis Date Alcohol consumption heavy 09/10/2015 Asthma Atrial fibrillation ([facility]) CHF (congestive heart failure) ([facility]) 01/31/2016 COPD (chronic obstructive pulmonary disease) ([facility]) 09/10/2015 Cor, pulmonale, acute (CMS/HCC) ([facility]) Deep venous thrombosis ([facility]) 02/2016 Depression Hx of blood clots Obesity 09/10/2015 DELORES (obstructive sleep apnea) Pulmonary embolus ([facility]) 6 16 Raynaud phenomenon 09/10/2015 Smoker 09/10/2015 SURGICAL HISTORY Past Surgical History: Procedure Laterality Date ABDOMINAL SURGERY BRONCHOSCOPY 02/25/2020 BRONCHOSCOPY (HISTORICAL) 02/25/2020 COLONOSCOPY 10/27/[address] CHEST ANGIOGRAM W AND/OR WO IV CONTRAST 07/12/2022 CT CHEST ANGIOGRAM W AND/OR WO IV CONTRAST 07/12/2022 [facility] CT IMAGING FINGER AMPUTATION Left HERNIA REPAIR NOSE SURGERY CURRENT MEDICATIONS Previous Medications ALBUTEROL (2.5 MG/3ML) 0.083% NEBULIZER SOLUTION TAKE 3 MLS VIA NEBULIZATION ONCE NEEDED FOR WHEEZING OR SHORTNESS OF BREATH FOR UP TO 75 DOSES ELIQUIS 5 MG TABLET Take 1 tablet (5 mg) by mouth 2 times daily. [id number] (TRELEGY ELLIPTA) 100-62.5-25 MCG/ACT AEROSOL POWDER Inhale 1 puff daily. DIFMBMYOLLJ-NHBYCNPOH-VHLWIN (TRELEGY ELLIPTA) 100-62.5-25 MCG/ACT AEROSOL POWDER Inhale 1 puff daily. METOPROLOL SUCCINATE XL (TOPROL-XL) 100 MG 24 HR TABLET TAKE 1 TABLET (100 MG) BY MOUTH IN THE MORNING AND 1 TABLET (100 MG) BEFORE BEDTIME. DO NOT CRUSH OR CHEW.. MONTELUKAST (SINGULAIR) 10 MG TABLET TAKE 1 TABLET BY MOUTH EVERY EVENING ALLERGIES Patient has no known allergies. FAMILY HISTORY Family History Problem Relation Name Age of Onset Asthma Father Congenital Anomaly Father Cancer Father Asthma Sister Heart disease Mother Heart disease Brother Pacemaker Mother Congenital Anomaly Sister Cancer Mother Diabetes Mother SOCIAL HISTORY Social History Socioeconomic History Marital status: Tobacco Use Smoking status: Every Day Current packs/day: 0.25 Average packs/day: 0.3 packs/day for 52.2 years (13.1 ttl pk-yrs) Types: Cigarettes Start date: 1972 Smokeless tobacco: Never Tobacco comments: 8 cig daily Substance and Sexual Activity Alcohol use: Yes Alcohol/week: 7.0 standard drinks of alcohol Types: 7 Cans of beer per week Comment: once beer daily Drug use: Never Social Drivers of Health Financial Resource Strain: Low Risk (03/02/2024) Overall Financial Resource Strain (CARDIA) Difficulty of Paying Living Expenses: Not hard at all Food Insecurity: No Food Insecurity (03/02/2024) Hunger Vital Sign Worried About Running Out of Food in the Last Year: Never true Ran Out of Food in the Last Year: Never true Transportation Needs: No Transportation Needs (03/02/2024) PRAPARE - Transportation Lack of Transportation (Medical): No Lack of Transportation (Non-Medical): No Social Connections: Socially Isolated (08/20/2024) Social Connection and Isolation Panel [NHANES] Frequency of Communication with Friends and Family: Three times a week Frequency of Social Gatherings with Friends and Family: Three times a week Attends Zoroastrian Services: Never Active Member of Clubs or Organizations: No Attends Club or Organization Meetings: Never Marital Status: Intimate Partner Violence: Not At Risk (02/14/2024) Humiliation, Afraid, Rape, and Kick questionnaire Fear of Current or Ex-Partner: No Emotionally Abused: No Physically Abused: No Sexually Abused: No Housing Stability: Low Risk (08/20/2024) Housing Stability Vital Sign Unable to Pay for Housing in the Last Year: No Number of Times Moved in the Last Year: 0 Homeless in the Last Year: No SCREENINGS [place] Coma Scale Best Eye Response: Spontaneous Best Verbal Response: Confused Best Motor Response: Follows commands [place] Coma Scale Score: 14 PHYSICAL EXAM ED Triage Vitals [08/19/24 1709] Temp Heart Rate Resp BP 36.2 C (97.1 F) 79 18 127/86 SpO2 Temp Source Heart Rate Source Patient Position 98 % Temporal Monitor -- BP Location FiO2 (%) -- -- Physical Exam Vitals and nursing note reviewed. Constitutional: General: He is not in acute distress. Appearance: He is well-developed. Comments: The patient is an older male found lying on a cart. He is alert and and oriented. He has a frequent cough. HENT: Head: Normocephalic and atraumatic. Eyes: Conjunctiva/sclera: Conjunctivae normal. Cardiovascular: Rate and Rhythm: Normal rate. Rhythm irregular. Heart sounds: No murmur heard. Pulmonary: Effort: Pulmonary effort is normal. No respiratory distress. Breath sounds: Rhonchi present. Abdominal: Palpations: Abdomen is soft. Tenderness: There is no abdominal tenderness. Musculoskeletal: General: No swelling. Cervical back: Neck supple. Right lower leg: Edema present. Left lower leg: Edema present. Comments: The patient has 3+ edema to the lower extremities to the knees bilaterally. Skin: General: Skin is warm and dry. Capillary Refill: Capillary refill takes less than 2 seconds. Neurological: Mental Status: He is alert. Psychiatric: Mood and Affect: Mood normal. DIAGNOSTIC RESULTS RADIOLOGY (Per Emergency Physician): Interpretation per the Radiologist below, if available at the time of this note: US abdomen limited Final Result FINDINGS/IMPRESSION: Tiny amount of perihepatic ascites. Nodular hepatic contour. Report Dictated on Electronically Signed By: Ric Uriostegui MD Electronically Signed Date/Time: 08/20/2024 11:07 AM EST XR chest 2 views Final Result Interstitial pulmonary edema with bilateral pleural effusions. Report Dictated on Electronically Signed By: Reese Bear DR Electronically Signed Date/Time: 08/20/2024 6:42 AM EST XR chest 1 view Final Result LABS: Labs Reviewed LEGIONELLA AND STREPTOCOCCUS URINE ANTIGEN - Abnormal Result Value Legionella pneumophila Ag Not Detected Streptococcus pneumoniae Ag Detected (*) Narrative: Methodology: Lateral flow enzyme immunoassay This assay is approved for detection of antigens to Streptococcus pneumoniae and Legionella pneumophila serogroup 1; however, other L. pneumophila serogroups may also be detected. CBC WITH AUTO DIFFERENTIAL - Abnormal Auto WBC 7.0 RBC 4.20 (*) Hemoglobin 13.2 Hematocrit 39.7 (*) MCV 94.5 MCH 31.4 MCHC 33.2 RDW 14.6 Platelets 145 MPV 10.5 nRBC 0.0 Neutrophils Relative 76.9 Lymphocytes Relative 10.5 (*) Monocytes Relative 9.5 Eosinophils Relative 1.8 Basophils Relative 1.0 Immature Grans % 0.3 Neutrophils Absolute 5.4 Lymphocytes Absolute 0.7 (*) Monocytes Absolute 0.7 Eosinophils Absolute 0.1 Basophils Absolute 0.1 Immature Grans Absolute 0.0 IPF 4 PROTHROMBIN TIME - Abnormal PROTHROMBIN TIME 14.2 (*) INR 1.3 (*) APTT - Abnormal APTT 34.5 (*) Narrative: NOTE: The therapeutic time for Heparin anticoagulation, based on Xa activity inhibition, is an APTT of 46-80 seconds. COMPREHENSIVE METABOLIC PANEL - Abnormal SODIUM 136 POTASSIUM 3.8 CHLORIDE 102 CARBON DIOXIDE 25 ANION GAP 9 UREA NITROGEN 14 CREATININE 0.77 GLUCOSE 96 CALCIUM 8.7 (*) AST (SGOT) 51 (*) ALT 21 ALKALINE PHOSPHATASE 416 (*) ALBUMIN 2.8 (*) BILIRUBIN, TOTAL 0.8 TOTAL PROTEIN 6.2 (*) eGFR >90.0 HIGH SENSITIVITY TROPONIN, SERIAL BASELINE - Abnormal Troponin HS, Serial Baseline 37 (*) NT PRO BNP - Abnormal NT PRO BNP 12,526 (*) COMPLETE URINALYSIS - Abnormal Color, Urine Yellow Clarity, Urine Clear pH, Urine 6.0 Leukocytes, Urine Negative Nitrite, Urine Positive (*) Protein, Urine 10 (*) Glucose, Urine Normal Bilirubin, Urine Negative Ketones, Urine Negative Urobilinogen, Urine Normal Blood, Urine Negative RBC, Urine 0-2 WBC, Urine 3-5 Squamous Epithelial, Urine Negative Bacteria, Urine Few (*) Mucus, Urine Few Hyaline Casts, Urine 3-5 (*) SPECIFIC GRAVITY OF URINE (NUMERIC) 1.009 CBC WITH AUTO DIFFERENTIAL - Abnormal Auto WBC 7.5 RBC 4.10 (*) Hemoglobin 13.0 Hematocrit 38.5 (*) MCV 93.9 MCH 31.7 MCHC 33.8 RDW 14.7 Platelets 196 MPV 11.6 nRBC 0.0 Neutrophils Relative 73.3 Lymphocytes Relative 11.4 (*) Monocytes Relative 12.1 Eosinophils Relative 1.9 Basophils Relative 0.9 Immature Grans % 0.4 Neutrophils Absolute 5.5 Lymphocytes Absolute 0.9 (*) Monocytes Absolute 0.9 Eosinophils Absolute 0.1 Basophils Absolute 0.1 Immature Grans Absolute 0.0 BLOOD GAS, VENOUS - Abnormal pH, Venous 7.300 (*) pCO2, Venous 61.0 (*) pO2, Venous 21.1 HCO3, Venous 29.3 O2 Sat, Venous 29.1 Base Excess, Venous 1.4 Hgb, blood gas 14.4 TCO2, Venous 31.2 (*) Source Of Oxygen Nasal cannula Narrative: Assessment of oxygenation is best done with an arterial blood gas determination. Reference ranges for pO2, bicarbonate, and base excess are for mixed venous blood. Specimens drawn from a peripheral vein will often have higher values. COMPREHENSIVE METABOLIC PANEL - Abnormal SODIUM 138 POTASSIUM 4.2 CHLORIDE 103 CARBON DIOXIDE 25 ANION GAP 10 UREA NITROGEN 14 CREATININE 0.82 GLUCOSE 83 CALCIUM 8.4 (*) AST (SGOT) 75 (*) ALT 22 ALKALINE PHOSPHATASE 368 (*) ALBUMIN 2.8 (*) BILIRUBIN, TOTAL 0.7 TOTAL PROTEIN 6.7 eGFR >90.0 GAMMA GT - Abnormal GGT 98 (*) SARS-COV-2, FLU A/B, AND RSV COMBO - Normal SARS-CoV-2 Not Detected Respiratory Syncytial Virus Not Detected Influenza A Not Detected Influenza B Not Detected Narrative: Methodology: real-time, RT-PCR The SARS-CoV-2, Flu A/B, and RSV Combo assay is intended for in vitro diagnostic use under the FDA Emergency Use Authorization (EUA). This test has not been FDA cleared or approved. In compliance with this authorization, please visit www.fda.gov/media/287179/download or www.fda.gov/media/632652/download to access the applicable information sheets. BLOOD CULTURE - Normal Blood Culture Blood culture incubation started Narrative: Blood Collection Site: Right Antecubital BLOOD CULTURE - Normal Blood Culture Blood culture incubation started Narrative: Blood Collection Site: Left Hand RESPIRATORY PATHOGENS PANEL BY PCR - Normal SARS-CoV-2 Not Detected Adenovirus Not Detected Coronavirus HKU1 Not Detected Coronavirus NL63 Not Detected Coronavirus 229E Not Detected Coronavirus OC43 Not Detected Human Metapneumovirus Not Detected Human Rhinovirus/Enterovirus Not Detected Influenza A Not Detected Influenza B Not Detected Parainfluenza 1 Not Detected Parainfluenza 2 Not Detected Parainfluenza 3 Not Detected Parainfluenza 4 Not Detected Respiratory Syncytial Virus Not Detected Bordetella pertussis Not Detected Bordetella parapertussis Not Detected Chlamydia pneumoniae Not Detected Mycoplasma pneumoniae Not Detected Narrative: Methodology: Multiplex PCR AMMONIA - Normal AMMONIA 22 ETHANOL - Normal ETHANOL IN SER/PLAS <10 Narrative: SHEARING MACHINE FEEDER depression is seen >100 mg/dL. NOTE: This result is for medical treatment only. Analysis performed using non-forensic procedures. LACTIC ACID WITH REFLEX - Normal LACTIC ACID 1.3 MAGNESIUM - Normal MAGNESIUM 1.7 Narrative: Higher values can be expected in females during menses. MAGNESIUM - Normal MAGNESIUM 1.6 Narrative: Higher values can be expected in females during menses. PHOSPHORUS - Normal PHOSPHORUS 2.8 PHOSPHORUS - Normal PHOSPHORUS 2.8 PROCALCITONIN TEST - Normal PROCALCITONIN 0.04 Narrative: PCT <0.50 = Low risk of severe sepsis and/or septic shock. PCT >2.00 = High risk of severe sepsis and/or septic shock. LEGIONELLA AND STREPTOCOCCUS URINE ANTIGEN, ORDERABLE Narrative: The following orders were created for panel order Legionella and Streptococcus Urine Antigen. Procedure Abnormality Status --------- ------ Legionella and Streptoco...[[id number]] Abnormal Final result Urine Hold Cup[[id number]] Final result Please view results for these tests on the individual orders. RESPIRATORY CULTURE AND STAIN PNEUMONIA PCR PANEL COMPLETE URINALYSIS WITH REFLEX TO CULTURE Narrative: The following orders were created for panel order Urinalysis complete with reflex to Culture. Procedure Abnormality Status --------- ------ Complete Urinalysis[[id number]] Abnormal Final result Please view results for these tests on the individual orders. HIGH SENSITIVITY TROPONIN, SERIAL, SECOND TEST Troponin HS, Serial Second 35 Troponin HS Delta, Baseline to Second -2 COMPREHENSIVE METABOLIC PANEL WITH MG REFLEX Narrative: The following orders were created for panel order Comprehensive Metabolic Panel w/ Mg Reflex. Procedure Abnormality Status --------- ------ Comprehensive metabolic ...[[id number]] Abnormal Final result Please view results for these tests on the individual orders. URINE HOLD CUP Extra Tube Hold for add-ons. BLOOD GAS, VENOUS pH, Venous 7.354 pCO2, Venous 48.6 pO2, Venous 28.5 HCO3, Venous 26.5 O2 Sat, Venous 51.1 Base Excess, Venous 0.3 Hgb, blood gas 14.3 TCO2, Venous 28.0 Source Of Oxygen 2L Narrative: Assessment of oxygenation is best done with an arterial blood gas determination. Reference ranges for pO2, bicarbonate, and base excess are for mixed venous blood. Specimens drawn from a peripheral vein will often have higher values. AFP TUMOR MARKER (BKR QUEST) All other labs were within normal range or not returned as of this dictation. EMERGENCY DEPARTMENT COURSE and DIFFERENTIAL DIAGNOSIS/MDM: Vitals: Vitals: 08/20/24 0817 08/20/24 1003 08/20/24 1142 08/20/24 1333 BP: 112/88 108/79 114/81 129/89 BP Location: Left arm Left arm Patient Position: Lying Sitting Pulse: 98 80 81 82 Resp: 20 18 20 19 Temp: TempSrc: SpO2: 98% 95% 95% 97% Weight: Height: Medications Administered in the ED: Medications mometasone-formoterol (Dulera 100) 100-5 MCG/ACT inhaler 2 puff (2 puffs Inhalation Given 08/20/24817) tiotropium (Spiriva Respimat) 2.5 MCG/ACT inhaler 2 puff (2 puffs Inhalation Given 08/20/24818) metoprolol succinate XL (Toprol-XL) 24 hr tablet 100 mg (100 mg Oral Given 08/20/24819) montelukast (Singulair) tablet 10 mg (10 mg Oral Given 08/19/244) enoxaparin (Lovenox) syringe 40 mg (40 mg SubCUTAneous Given 08/20/24819) acetaminophen (Tylenol) tablet 650 mg (has no administration in time range) Or acetaminophen (Tylenol) suppository 650 mg (has no administration in time range) polyethylene glycol (PEG) 3350 (Miralax) packet 17 g (has no administration in time range) nicotine (Nicoderm, Step 1) 21 MG/24HR patch 1 patch (1 patch TransDERmal Medication Applied 08/20/24820) Followed by nicotine (Nicoderm, Step 2) 14 MG/24HR patch 1 patch (has no administration in time range) Followed by nicotine (Nicoderm, Step 3) 7 MG/24HR patch 1 patch (has no administration in time range) ipratropium-albuterol (Duo-Neb) 0.5-2.5 mg/3 mL nebulizer solution 3 mL (3 mL Nebulization Given 08/19/242253) thiamine (Vitamin B1) tablet 100 mg (100 mg Oral Given 08/20/24820) folic acid (Folvite) tablet 1 mg (1 mg Oral Given 08/20/24820) influenza vaccine A&B surf ant adjuvanted (Fluad) HIGH-DOSE injection 0.5 mL (has no administration in time range) LORazepam (Ativan) tablet 1 mg (has no administration in time range) Or LORazepam (Ativan) injection 1 mg (has no administration in time range) Or LORazepam (Ativan) tablet 2 mg (has no administration in time range) Or LORazepam (Ativan) injection 2 mg (has no administration in time range) Or LORazepam (Ativan) tablet 3 mg (has no administration in time range) Or LORazepam (Ativan) injection 3 mg (has no administration in time range) Or LORazepam (Ativan) tablet 4 mg (has no administration in time range) Or LORazepam (Ativan) injection 4 mg (has no administration in time range) prochlorperazine (Compazine) tablet 10 mg (has no administration in time range) Or prochlorperazine (Compazine) injection 10 mg (has no administration in time range) Or prochlorperazine (Compazine) suppository 25 mg (has no administration in time range) guaiFENesin (Mucinex) 12 hr tablet 600 mg (600 mg Oral Given 08/20/24820) furosemide (Lasix) injection 40 mg (has no administration in time range) cefTRIAXone (Rocephin) 1,000 mg in sodium chloride 0.9 % 50 mL IVPB Mini-Bag Plus (has no administration in time range) cefTRIAXone (Rocephin) 1,000 mg in sodium chloride 0.9 % 50 mL IVPB Mini-Bag Plus (0 mg IntraVENous Stopped 08/19/241940) azithromycin (Zithromax) 500 mg in sodium chloride 0.9 % 250 mL IVPB (ADD-Barnum) (0 mg IntraVENous Stopped 08/19/242153) PHENobarbital tablet 64.8 mg (64.8 mg Oral Given 08/19/241848) I Karthik Guerin MD am the director of institutional giving of record. PROCEDURES: Unless otherwise noted below, none Procedures Differential Diagnosis Considerations: Differential diagnosis includes hepatic encephalopathy, congestive heart failure, acute coronary syndrome, metabolic abnormality, alcohol withdrawal. ED testing and evaluation will be obtained to help differentiate these diagnostic possibilities and determine the most likely cause. Sources of History: I evaluated other historical sources including previous outpatient records and admission records. ED Course: In the emergency department I initially evaluated the patient with a history and physical examination in order to determine diagnostic testing and therapeutic care. On the basis of this history and physical examination the patient is given intravenous fluids. Laboratory work will be obtained to further evaluate. Reassessment: The patient is subsequently admitted for care of the pneumonia in the right lower lobe as well as evidence of heart failure. Consideration of Admission/Observation: The patient will likely require admission for further evaluation. Independent Interpretation of Tests: I independently evaluated the results of the patient's diagnostic testing in the context of the patient's presentation. Diagnostic Tests Considered but not Performed: I considered a CT scan of the head. However this appears to be chronic. Prescription Medications Considered but not Prescribed: I considered the prescription and administration of narcotics for this patient's discomfort. However, at this time I do not believe that narcotics would be indicated. Chronic Conditions Affecting Care: Patient drinks alcohol on a nearly daily basis. FINAL IMPRESSION 1. Pneumonia of right lower lobe due to infectious organism 2. Chronic congestive heart failure, unspecified heart failure type (HCC) 3. Atrial fibrillation, unspecified type (HCC) DISPOSITION Admit 08/19/2024 09:56:50 PM PATIENT REFERRED TO: No follow-up provider specified. DISCHARGE MEDICATIONS: New Prescriptions No medications on file (Comment: Please note this report has been produced using speech recognition software and may contain errors related to that system including errors in grammar, punctuation, and spelling, as well as words and phrases that may be inappropriate. If there are any questions or concerns please feel free to contact the dictating provider for clarification.) Karthik Guerin MD (electronically signed) Emergency Medicine Provider Karthik Guerin MD 08/20/24 [address] [facility] 08-19-2024 Telephone encounter Note S: Patient ex called the [facility] access [place] with complaint of 3 weeks ago swelling started in feet, legs, and knees, abdomen is distended, hard time breathing, struggling when speaking B: Ongoing 3 weeks. A: Patient c/o patient has CHF and pacemaker. Has not been taking his medications. She states he is noncompliant. Started with swelling in his legs 3 weeks ago and has pain in his feet. She states she bought him OTC water pills. Unstable on his feet, legs are swollen and red with pitting edema. He just called her and seems confused. Abdomen is very distended. She is unsure if abdominal pain. Breathing right now she states is pretty bad. Shortness of breath all the time. Speaking in phrases and shortness of breath at rest. R: Advised to take him to ED, states she will have him to [facility] Ed within the hour. Patient instructed to call back with worsening symptoms, concerns or questions. Patient verbalized understanding. Message to the office for review by the provider and needs recommendation from Provider for treatment going forward. Reason for Disposition MODERATE difficulty breathing (e.g., speaks in phrases, SOB even at rest, pulse 100-120) of new-onset or worse than normal Protocols used: Breathing Thopsijvpx-BRYJR-LD [facility] 08-19-2024 Miscellaneous Notes S: Patient ex called the [facility] access center with complaint of 3 weeks ago swelling started in feet, legs, and knees, abdomen is distended, hard time breathing, struggling when speaking B: Ongoing 3 weeks. A: Patient c/o patient has CHF and pacemaker. Has not been taking his medications. She states he is noncompliant. Started with swelling in his legs 3 weeks ago and has pain in his feet. She states she bought him OTC water pills. Unstable on his feet, legs are swollen and red with pitting edema. He just called her and seems confused. Abdomen is very distended. She is unsure if abdominal pain. Breathing right now she states is pretty bad. Shortness of breath all the time. Speaking in phrases and shortness of breath at rest. R: Advised to take him to ED, states she will have him to [facility] Ed within the hour. Patient instructed to call back with worsening symptoms, concerns or questions. Patient verbalized understanding. Message to the office for review by the provider and needs recommendation from Provider for treatment going forward. Reason for Disposition MODERATE difficulty breathing (e.g., speaks in phrases, SOB even at rest, pulse 100-120) of new-onset or worse than normal Protocols used: Breathing Avinsiswtf-[id number]-OB documented in this encounter [facility] 08-12-2024 Telephone encounter Note We have been unable to reach your patient to schedule their testing. Test Name: PFT 1st Attempt: 04/23/2024 [employer] message sent 2nd Attempt: 08/12/2024 left voicemail [facility] 08-12-2024 Miscellaneous Notes We have been unable to reach your patient to schedule their testing. Test Name: PFT 1st Attempt: 04/23/2024 mychart message sent 2nd Attempt: 08/12/2024 left voicemail documented in this encounter [facility] 06-03-2024 Telephone encounter Note Last office visit:03/02/24 Next office visit:not scheduled [facility] 06-03-2024 Miscellaneous Notes Last office visit:03/02/24 Next office visit:not scheduled documented in this encounter [facility] 05-13-2024 Telephone encounter Note NO show today for Dr Foote OV and Clinic device check. Left message of voice mail to call our office to reschedule. [facility] 05-13-2024 Miscellaneous Notes NO show today for Dr Foote OV and Clinic device check. Left message of voice mail to call our office to reschedule. documented in this encounter [facility] 04-17-2024 Telephone encounter Note We have been unable to reach your patient to schedule their testing. Test Name: 6 minute walk test 1st Attempt: 04/16 2nd Attempt: 04/17 [facility] 04-17-2024 Miscellaneous Notes We have been unable to reach your patient to schedule their testing. Test Name: 6 minute walk test 1st Attempt: 04/16 2nd Attempt: 04/17 documented in this encounter [facility] 04-15-2024 Telephone encounter Note (2) Trelegy 100 SAMPLES [facility] 04-15-2024 Miscellaneous Notes (2) Trelegy 100 SAMPLES documented in this encounter [facility] 04-15-2024 History of Present illness Narrative Images from the original note were not included. [facility] [place] [facility] [place] [facility] [address] [place] [address] PH: [phone] Visit type: A New Patient 04/15/2024 CHIEF COMPLAINT/REASON FOR REFERRAL: Chief Complaint Patient presents with New Patient REFERRAL-CHRONIC BRONCHITIS Hx OF DELORES- COPD W/EXACERBATION History of Present Illness Krystina Markham is a 68 y.o. referred to us for COPD obstructive sleep apnea noncompliant with CPAP therapy Patient with a history of heavy tobacco use continues to smoke half pack per day for more than 50 years had been placed on CPAP for his obstructive sleep apnea however the patient is not using the CPAP machine since last month patient does have a history of heart failure cardiomyopathy with ejection fraction of around 20 has a defibrillator placed in also has a history of paroxysmal atrial fibrillation on Eliquis Patient was on Spiriva apparently not very compliant Overall he is not very compliant with medication and medical advice Continues to smoke Having cough without much expectoration No hemoptysis dyspnea on exertion Walking a block Patient not on home oxygen Last chest x-ray from November 2023 reviewed show underlying congestive heart failure Last CT chest which she had a CTA angiogram in [address] chest screening is available Patient noncompliant with CPAP machine he still has a machine but does not use it M[facility] Dyspnea Scale: Grade Description of Breathlessness 0 I only get breathless with strenuous exercise. 1 I get short of breath when hurrying on level ground or walking up a slight hill. 2 On level ground, I walk slower than people of the same age because of breathlessness, or have to stop for breath when walking at my own pace. 3 I stop for breath after walking about 100 yards or after a few minutes on level ground. 4 I am too breathless to leave the house or I am breathless when dressing. PastMedical History Past Medical History: Diagnosis Date Alcohol consumption heavy 09/10/2015 Asthma Atrial fibrillation ([facility]) CHF (congestive heart failure) ([facility]) 01/31/2016 COPD (chronic obstructive pulmonary disease) ([facility]) 09/10/2015 Cor, pulmonale, acute ([facility]) ([facility]) Deep venous thrombosis ([facility]) 02/2016 Depression Hx of blood clots Obesity 09/10/2015 DELORES (obstructive sleep apnea) Pulmonary embolus ([facility]) 6 16 Raynaud phenomenon 09/10/2015 Smoker 09/10/2015 Past Surgical History Past Surgical History: Procedure Laterality Date ABDOMINAL SURGERY BRONCHOSCOPY 02/25/2020 BRONCHOSCOPY (HISTORICAL) 02/25/2020 COLONOSCOPY 10/27/[address] CHEST ANGIOGRAM W AND/OR WO IV CONTRAST 07/12/2022 CT CHEST ANGIOGRAM W AND/OR WO IV CONTRAST 07/12/2022 [facility] CT IMAGING FINGER AMPUTATION Left HERNIA REPAIR NOSE SURGERY Allergies No Known Allergies Medications Current Outpatient Medications: albuterol (2.5 MG/3ML) 0.083% nebulizer solution, TAKE 3 MLS VIA NEBULIZATION ONCE NEEDED FOR WHEEZING OR SHORTNESS OF BREATH FOR UP TO 75 DOSES, Disp: 75 mL, Rfl: 2 Eliquis 5 MG tablet, Take 1 tablet (5 mg) by mouth 2 times daily., Disp: 60 tablet, Rfl: 2 montelukast (Singulair) 10 MG tablet, Take 1 tablet (10 mg) by mouth every evening., Disp: 90 tablet, Rfl: 0 tiotropium (Spiriva Respimat) 1.25 MCG/ACT inhaler, Inhale 2 puffs daily., Disp: 4 g, Rfl: 1 metoprolol succinate XL (Toprol-XL) 100 MG 24 hr tablet, TAKE 1 TABLET (100 MG) BY MOUTH IN THE MORNING AND 1 TABLET (100 MG) BEFORE BEDTIME. DO NOT CRUSH OR CHEW.., Disp: 180 tablet, Rfl: 0 Social History Social History Tobacco Use Smoking status: Every Day Current packs/day: 0.25 Average packs/day: 0.3 packs/day for 51.9 years (13.0 ttl pk-yrs) Types: Cigarettes Start date: 1972 Smokeless tobacco: Never Tobacco comments: 8 cig daily Substance Use Topics Alcohol use: Yes Alcohol/week: 7.0 standard drinks of alcohol Types: 7 Cans of beer per week Comment: once beer daily FamilyHistory Family History Problem Relation Name Age of Onset Asthma Father Congenital Anomaly Father Cancer Father Asthma Sister Heart disease Mother Heart disease Brother Pacemaker Mother Congenital Anomaly Sister Cancer Mother Diabetes Mother Review of Systems Review of Systems Constitutional: Negative. HENT: Negative. Eyes: Negative. Respiratory: Positive for cough and shortness of breath. Cardiovascular: Negative. Defibrillator left chest wall Gastrointestinal: Negative. Genitourinary: Negative. Musculoskeletal: Negative. Neurological: Negative. Psychiatric/Behavioral: Negative. Physical Exam Vitals: 04/15/24 0904 BP: (!) 144/64 Pulse: 66 Temp: 37 C (98.6 F) TempSrc: Temporal SpO2: 94% Weight: 178 lb 12.8 oz (81.1 kg) Height: 5' 9" (1.753 m) Physical Exam Constitutional: General: He is not in acute distress. Appearance: He is not diaphoretic. HENT: Head: Normocephalic and atraumatic. Mouth/Throat: Mouth: Mucous membranes are moist. Pharynx: No oropharyngeal exudate or posterior oropharyngeal erythema. Eyes: General: Right eye: No discharge. Left eye: No discharge. Cardiovascular: Rate and Rhythm: Normal rate. Rhythm irregular. Heart sounds: No murmur heard. No gallop. Pulmonary: Effort: No respiratory distress. Breath sounds: No stridor. Wheezing and rales present. Comments: Coarse breath sound Rales/ rhonchi posteriorly Chest: Chest wall: No tenderness. Abdominal: Palpations: Abdomen is soft. Tenderness: There is no abdominal tenderness. There is no guarding. Musculoskeletal: General: Signs of injury present. Cervical back: Neck supple. No tenderness. Right lower leg: No edema. Left lower leg: No edema. Comments: S/P left two fingers amputation Lymphadenopathy: Cervical: No cervical adenopathy. Skin: General: Skin is warm. Findings: No erythema or rash. Neurological: General: No focal deficit present. Mental Status: He is alert and oriented to person, place, and time. Motor: No weakness. Psychiatric: Mood and Affect: Mood normal. Behavior: Behavior normal. Thought Content: Thought content normal. Data Reviewed and Summarized LABS and Studies: Available studies were personally reviewed. Salient findings summarized in HPI & A/P Imaging: Available studies were personally reviewed. Salient findings summarized in HPI & A/P [facility] 1955 [id number] Exam Date/Time: 11/12/2023 08:23 Procedure: XR CHEST 2 VIEWS Ordering Provider: DUMONT ALEXIA Reason For Exam: DYSPNEA CHEST X-RAY PA/LATERAL CLINICAL INDICATION: DYSPNEA TECHNIQUE: Frontal and lateral plain films of the chest were obtained. COMPARISON: Previous day IMPRESSION: FINDINGS/IMPRESSION: Limitations: Slight rotation Lines, tubes, and devices: Dual-lead left-sided AICD device in place Cardiomediastinal silhouette: Cardiomegaly as before Lungs/Pleura: Background of mild chronic lung changes. Diffuse hazy groundglass opacities involving both lungs slightly improved likely reflecting improving pulmonary vascular congestion. Mild patchy confluent bibasilar opacities reflecting mild atelectasis and/or pneumonia similar to prior study. Suspect trace to small pleural effusions versus pleural thickening. No pneumothorax. 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 Multiple healed fracture deformities. Partial visualization of left proximal humeral fracture Soft tissues: No soft tissue abnormality is detected. PFT's: Pulmonary Functions Testing Results:02/11/2020 FEV1 1.78 L/ 59% DLCO 54% Echocardiogram Left Ventricle: Left ventricle is moderately dilated. LVIDd is 6.4 cm. Mildly increased wall thickness. Severely reduced left ventricular systolic function. EF by 2D Simpsons Biplane is 21%. Global hypokinesis present. Right Ventricle: Right ventricle is severely dilated. Pacemaker lead present in the right ventricle. Tricuspid Valve: Moderately severe (3+) regurgitation. RVSP may be underestimated in the setting of severe TR. RVSP is 47 mmHg. Left Atrium: Left atrium is severely dilated. LA Vol Index A/L is 73 mL/m2. Right Atrium: Right atrium is severely dilated. Mitral Valve: Annular dilation. Mild to moderate (1-2+) regurgitation. IVC is severely dilated. IVC diameter is dilated and decreases less than 50% during inspiration; therefore the estimated right atrial pressure is elevated (~15 mmHg). Assessment and Plan 1. Chronic bronchitis, unspecified chronic bronchitis type (HCC) Clinically appears to advance disease/no recent PFT available - [facility] [place]monary/Pulmonology - Complete PFT pre and post bronchodilator with FENO; Future - Dufyx-3-ynidmhpaiet; Future - Acqld-5-atojrtroert 2. Mucopurulent chronic bronchitis (HCC) As noted above We will place the patient on Trelegy triple inhaler therapy samples were given Use of the medication was demonstrated to the patient by the bedside Advised to use every day Trelegy Ellipta 100 mcg 1 puff daily - Complete PFT pre and post bronchodilator with FENO; Future - Vthxm-0-[id number]; Future - Moaqf-9-[id number] - 6 minute walk test; Future 3. DELORES on CPAP History of sleep apnea noncompliant with the CPAP machine Advised strongly to use it every night Consequence of untreated sleep apnea was discussed 4. Presence of implantable cardioverter-defibrillator (ICD) Cardiomyopathy decreased ejection fraction of 21% Status post defibrillator pacemaker Followed by cardiology however appears the patient is not keeping follow-up appointment with cardiology 5. Paroxysmal atrial fibrillation (HCC) Underlying history of paroxysmal atrial fibrillation on Eliquis 6. HFrEF (heart failure with reduced ejection fraction) (HCC) Severely decreased ejection fraction of 21% cardiomyopathy Plan as per cardiology 7. Cigarette smoker History of more than [id number] of smoking Continues to smoke Counseled to quit smoking completely Patient does qualify for yearly CT chest screening Patient needs CT Chest screening order once technical issues sorted out Flu vaccine in fall Bryan Tracey MD Pulmonary, Critical Care, & Sleep Medicine Portions of the information within this encounter were entered using an electronic dictation system. Best attempts were made to edit/proofread the information prior to note completion. Despite the review of information, some errors may remain. If there are questions related to the information contained within the note please contact the provider documented in this encounter [facility] 04-15-2024 Instructions Ramila Woo - 04/15/2024 9:00 AM EDT YOUR APPOINTMENT TODAY WAS WITH THE [facility], COPD CLINIC, PULMONARY AND SLEEP MEDICINE OFFICE. PLEASE CALL OUR OFFICE AT [phone] for our [place] office location or [phone] for our [place] location, IF YOU HAVE NOT RECEIVED YOUR TEST RESULTS 7 DAYS AFTER TESTING IS COMPLETED. PLEASE REMEMBER TO REQUEST REFILLS AT YOUR OFFICE VISITS. PHONE/FAX REQUESTS REQUIRE 48-72 HOURS FOR RESPONSE. A FRIENDLY REMINDER COPAYS ARE DUE AT TIME OF SERVICE. THANK YOU. Our Patients Are Important! We want to improve and you can help. After your visit we want you to feel: Listened to, Respected and have your health care explained. You may receive a survey asking you about your visit. Please complete the survey. We will use your feedback to make improvements. COVID-19 VACCINATION INFORMATION: PH. [phone] [email or web address] [facility] Central Scheduling [phone] [facility] Sleep Scheduling [phone] documented in this encounter [facility] 03-03-2024 Evaluation + Plan note Associated Problem(s): Paroxysmal atrial fibrillation (HCC) -Has been off of Eliquis 5 mg since discharge due to cost -30-day coupon provided to patient -Will apply for assistance [facility] 03-03-2024 Miscellaneous Notes Associated Problem(s): Paroxysmal atrial fibrillation (HCC) -Has been off of Eliquis 5 mg since discharge due to cost -30-day coupon provided to patient -Will apply for assistance Associated Problem(s): Hyponatremia -Chronic long standing -Likely 2/2 beer potomania Associated Problem(s): Current moderate episode of major depressive disorder without prior episode ([facility]) -Stable -NO SI/HI Associated Problem(s): Alcohol abuse -SUSAN 2 months ago -Off of ankle monitor on 02/29/24 -10 beers 03/01/24 -No DT symptoms -Does not plan on quitting or slowing Associated Problem(s): Cervical spondylosis -To follow with Sports medicine -Contact information given Associated Problem(s): HFrEF (heart failure with reduced ejection fraction) ([facility]) -Stable -Refill Associated Problem(s): Essential hypertension -Stable within target range -Currently only taking Cozaar 25 mg daily -Restart spironolactone 25 mg nightly -Hold if hypotensive symptoms occur documented in this encounter [facility] 03-03-2024 Evaluation + Plan note Associated Problem(s): Hyponatremia -Chronic long standing -Likely 2/2 beer potomania [facility] 03-03-2024 Evaluation + Plan note Associated Problem(s): Current moderate episode of major depressive disorder without prior episode (HCC) -Stable -NO SI/HI [facility] 03-03-2024 Evaluation + Plan note Associated Problem(s): Alcohol abuse -SUSAN 2 months ago -Off of ankle monitor on 02/29/24 -10 beers 03/01/24 -No DT symptoms -Does not plan on quitting or slowing [facility] 03-03-2024 Evaluation + Plan note Associated Problem(s): Cervical spondylosis -To follow with Sports medicine -Contact information given [facility] 03-03-2024 Evaluation + Plan note Associated Problem(s): HFrEF (heart failure with reduced ejection fraction) (HCC) -Stable -Refill [facility] 03-03-2024 Evaluation + Plan note Associated Problem(s): Essential hypertension -Stable within target range -Currently only taking Cozaar 25 mg daily -Restart spironolactone 25 mg nightly -Hold if hypotensive symptoms occur [facility] 03-02-2024 History of Present illness Narrative Pt asked if they have been to specialist,been in ER /hospitalized or had testing since last visit. YES_ seen in ED for right shoulder pain Images from the original note were not included. [facility] [address] [facility] [id number] Post-Discharge Hospital Follow Up Date of Hospital Admission: 02/13/24 Date of Hospital Discharge: 02/17/24 Readmission Risk Score: Predictive Model Details 89% Factor Value Risk of Hospital Admission or ED Visit Model 31% Number of ED Visits 2 14% Number of Hospitalizations 2 10% Is in Relationship No 7% Has Atrial Fibrillation Yes 7% Has COPD Yes 6% Has Anemia Yes 6% Has Medicare Yes 6% Has CVD Yes 5% Has Depression Yes 5% Has Diabetes Yes 3% Has CHF Yes 1% Has PCP Yes ASSESSMENT/PLAN 1. Cervical spondylosis Assessment & Plan: -To follow with Sports medicine -Contact information given 2. Hyponatremia Assessment & Plan: -Chronic long standing -Likely 2/2 beer potomania 3. Paroxysmal atrial fibrillation (HCC) Assessment & Plan: -Has been off of Eliquis 5 mg since discharge due to cost -30-day coupon provided to patient -Will apply for assistance Orders: - Eliquis 5 MG tablet; Take 1 tablet (5 mg) by mouth 2 times daily., Starting 03/02/2024, Until 05/31/2024, Normal 4. HFrEF (heart failure with reduced ejection fraction) (HCC) Assessment & Plan: -Stable -Refill Orders: - rosuvastatin (Crestor) 40 MG tablet; Take 1 tablet (40 mg) by mouth Nightly., Starting Sat03/02/2024, Normal - spironolactone (Aldactone) 25 MG tablet; Take 1 tablet (25 mg) by mouth Nightly., Starting Sat03/02/2024, Normal 5. Current moderate episode of major depressive disorder without prior episode (HCC) Assessment & Plan: -Stable -NO SI/HI Orders: - sertraline (Zoloft) 100 MG tablet; Take 1 tablet (100 mg) by mouth every morning., Starting Sat03/02/2024, Until Sat05/31/2024, Normal 6. Chronic bronchitis, unspecified chronic bronchitis type (HCC) [place] [facility] [place] - tiotropium (Spiriva Respimat) 1.25 MCG/ACT inhaler; Inhale 2 puffs daily., Starting Sat03/02/2024, Normal - montelukast (Singulair) 10 MG tablet; Take 1 tablet (10 mg) by mouth every evening., Starting Sat03/02/2024, Normal 7. Essential hypertension Assessment & Plan: -Stable within target range -Currently only taking Cozaar 25 mg daily -Restart spironolactone 25 mg nightly -Hold if hypotensive symptoms occur Orders: - losartan (Cozaar) 25 MG tablet; Take 1 tablet (25 mg) by mouth daily., Starting Sat03/02/2024, Until Sat03/02/2025, Normal 8. Alcohol abuse Assessment & Plan: -SUSAN 2 months ago -Off of ankle monitor on 02/29/24 -10 beers 03/01/24 -No DT symptoms -Does not plan on quitting or slowing Orders: - folic acid (Folvite) 1 MG tablet; Take 1 tablet (1,000 mcg) by mouth every morning., Starting Sat03/02/2024, Normal - Multiple Vitamins-Minerals (A Thru Z Advanced Adult) tablet; Take 1 tablet by mouth daily (with breakfast)., Starting Sat03/02/2024, Until Sat04/01/2024, Normal Medical Decision Making high Follow up in about 2 weeks (around 03/16/2024) for Blood thinner discussion, medication compliance. JAMIA SIERRA MD 03/03/24 10:22 AM SUBJECTIVE HPI Inpatient course: Discharge summary reviewed Krystina Markham is a 68 y.o. male who presents to the ED with right shoulder pain for 1 week and hand numbness for 1 day on 02/13/24 Admitted to [facility] for stroke rule out versus musculoskeletal injury. Elevated INR of 5.4 despite denying any anticoagulant use. No liver abnormalities found on lab work or imaging. Neurology was consulted and ordered brain MRI, cervical spine MRI which revealed no acute intracranial abnormalities, but cervical spondylosis noted to be most pronounced C3/C4 level. Follow-up with orthopedic/sports medicine. Follow-up has not yet been scheduled. CBC/BMP/INR 1 week after discharge on 02/17/2024. Interval History Since discharge patient has not been taking his Eliquis due to cost. Has not gotten CBC BMP and INR due to "not knowing I had to". SUSAN ankle brace for alcohol use was removed on Saturday after 2 months. Next day patient went to the bar and had at least 10 drinks. Arm numbness has not changed from prior. I have performed a medication reconciliation during this visit and have reconciled the medications patient is taking as of now against medications ordered at time of hospital discharge. Current Outpatient Medications: torsemide (Demadex) 20 MG tablet, TAKE 1 TABLET BY MOUTH TWICE A DAY, Disp: 60 tablet, Rfl: 0 albuterol (2.5 MG/3ML) 0.083% nebulizer solution, TAKE 3 MLS VIA NEBULIZATION ONCE NEEDED FOR WHEEZING OR SHORTNESS OF BREATH FOR UP TO 75 DOSES (Patient not taking: Reported on 03/02/2024), Disp: 75 mL, Rfl: 2 CVS B-1 100 MG tablet, TAKE 1 TABLET BY MOUTH EVERY DAY, Disp: 90 tablet, Rfl: 1 Eliquis 5 MG tablet, Take 1 tablet (5 mg) by mouth 2 times daily., Disp: 60 tablet, Rfl: 2 folic acid (Folvite) 1 MG tablet, Take 1 tablet (1,000 mcg) by mouth every morning., Disp: 90 tablet, Rfl: 3 ipratropium-albuterol (Duo-Neb) 0.5-2.5 mg/3 mL nebulizer solution, Take 3 mL by nebulization 2 times daily as needed for wheezing or shortness of breath. (Patient not taking: Reported on 03/02/2024), Disp: 1080 mL, Rfl: 0 losartan (Cozaar) 25 MG tablet, Take 1 tablet (25 mg) by mouth daily., Disp: 30 tablet, Rfl: 11 metoprolol succinate XL (Toprol-XL) 100 MG 24 hr tablet, TAKE 1 TABLET (100 MG) BY MOUTH IN THE MORNING AND 1 TABLET (100 MG) BEFORE BEDTIME. DO NOT CRUSH OR CHEW.., Disp: 180 tablet, Rfl: 0 montelukast (Singulair) 10 MG tablet, Take 1 tablet (10 mg) by mouth every evening., Disp: 90 tablet, Rfl: 0 Multiple Vitamins-Minerals (A Thru Z Advanced Adult) tablet, Take 1 tablet by mouth daily (with breakfast)., Disp: 30 tablet, Rfl: 0 rosuvastatin (Crestor) 40 MG tablet, Take 1 tablet (40 mg) by mouth Nightly., Disp: 90 tablet, Rfl: 3 sertraline (Zoloft) 100 MG tablet, Take 1 tablet (100 mg) by mouth every morning., Disp: 90 tablet, Rfl: 0 spironolactone (Aldactone) 25 MG tablet, Take 1 tablet (25 mg) by mouth Nightly., Disp: 90 tablet, Rfl: 1 tiotropium (Spiriva Respimat) 1.25 MCG/ACT inhaler, Inhale 2 puffs daily., Disp: 4 g, Rfl: 1 Review of Systems Constitutional: Negative for activity change, fatigue and fever. HENT: Negative for sore throat. Respiratory: Positive for shortness of breath and wheezing. Negative for cough. Cardiovascular: Negative for chest pain. Gastrointestinal: Negative for abdominal pain. Neurological: Positive for weakness and numbness. Negative for dizziness, seizures, light-headedness and headaches. Psychiatric/Behavioral: Negative for sleep disturbance. OBJECTIVE BP 112/63 Pulse 67 Temp 36.9 C (98.4 F) (Temporal) Ht 5' 9" (1.753 m) Wt 196 lb 1.6 oz (89 kg) BMI 28.96 kg/m Physical Exam Vitals and nursing note reviewed. Constitutional: General: He is not in acute distress. HENT: Mouth/Throat: Mouth: Mucous membranes are moist. Pharynx: Oropharynx is clear. Cardiovascular: Rate and Rhythm: Normal rate and regular rhythm. Pulses: Normal pulses. Heart sounds: Normal heart sounds. No murmur heard. Pulmonary: Effort: Pulmonary effort is normal. No respiratory distress. Breath sounds: Normal breath sounds. Abdominal: General: Bowel sounds are normal. Musculoskeletal: Right lower leg: No edema. Left lower leg: No edema. Skin: General: Skin is warm and dry. Capillary Refill: Capillary refill takes less than 2 seconds. Neurological: General: No focal deficit present. Mental Status: He is alert and oriented to person, place, and time. Mental status is at baseline. Sensory: Sensory deficit (Lateral aspect of the R upper arm) present. Motor: Motor function is intact. INR Date Value Ref Range Status 02/17/2024 1.1 0.9 - 1.1 Final Comment: Recommended Anticoagulant Therapy: SEE BELOW ----- INR of 2.0 - 3.0 : - Prophylaxis of Venous Thrombosis (high-risk surgery) - Treatment of Venous Thrombosis - Treatment of Pulmonary Embolism (Includes tissue heart valves, Acute Myocardial Infarction to prevent systemic embolism, Valvular Heart Disease, and Atrial Fibrillation) ----- INR of 2.5 - 3.5 : - Mechanical Prosthetic Valves (high risk) - If oral anticoagulant therapy is used to prevent Myocardial Infarction 02/16/2024 1.1 0.9 - 1.1 Final Comment: Recommended Anticoagulant Therapy: SEE BELOW ----- INR of 2.0 - 3.0 : - Prophylaxis of Venous Thrombosis (high-risk surgery) - Treatment of Venous Thrombosis - Treatment of Pulmonary Embolism (Includes tissue heart valves, Acute Myocardial Infarction to prevent systemic embolism, Valvular Heart Disease, and Atrial Fibrillation) ----- INR of 2.5 - 3.5 : - Mechanical Prosthetic Valves (high risk) - If oral anticoagulant therapy is used to prevent Myocardial Infarction SODIUM Date Value Ref Range Status 02/17/2024 134 (L) 135 - 145 mmol/L Final GLUCOSE Date Value Ref Range Status 02/17/2024 106 (H) 70 - 100 mg/dL Final POTASSIUM Date Value Ref Range Status 02/17/2024 4.0 3.5 - 5.1 mmol/L Final UREA NITROGEN Date Value Ref Range Status 02/17/2024 21 (H) 9 - 20 mg/dL Final CREATININE Date Value Ref Range Status 02/17/2024 0.69 0.66 - 1.25 mg/dL Final 08/25/2021 0.55 0.52 - 1.25 mg/dL Final ALT Date Value Ref Range Status 02/17/2024 16 0 - 49 U/L Final AST (SGOT) Date Value Ref Range Status 02/17/2024 29 15 - 46 U/L Final ALBUMIN Date Value Ref Range Status 02/17/2024 3.6 3.5 - 5.0 g/dL Final JAMIA SIERRA MD PGY-3 [facility] 7:38 AM 03/03/24 INDIRECT SUPERVISION THIS SERVICE IS TO BE BILLED UNDER THE PRIMARY CARE EXCEPTION (MODIFIER -GE) During or immediately after this visit, I discussed this case with the treating resident. Our discussion included the history obtained by the resident, the resident's exam findings, and the resident's treatment plan. The resident's note reflects the information we discussed, and I agree with the resident's assessment and treatment plan. documented in this encounter [facility] 03-02-2024 Instructions Jamia Sierra MD - 03/02/2024 10:15 AM EDT Referred to Department: [facility] Address: [address] Referred to Department: [facility] Address: [address] documented in this encounter [facility] 02-27-2024 Telephone encounter Note Encounter opened in error. Signed and closed for administrative purposes [facility] Work Phone: 02-27-2024 Miscellaneous Notes Encounter opened in error. Signed and closed for administrative purposes documented in this encounter [facility] 02-17-2024 History of Present illness Narrative Discharge instructions discussed with patient. All questions answered. Images from the original note were not included. OCCUPATIONAL THERAPY [facility] Treatment Note Name/MRN: Krystina Markham ([id number]) Date of : 1955 Age: 68 y.o. Room[facility]Bed: [facility] Visit #: 1 out of 5 visits Discharge Recommendation: Outpatient OT Equipment Needed: No Prior Level of Function ADL Assistance: Independent Ambulation Assistance: Independent Transfer Assistance: Independent Assessment Pt progressing with OT POC. Upon arrival to room, pt was up in the bathroom independently. He performed transfers, mobility, and toileting independently with no safety concerns or difficulty. Educated pt on dressing and pt was able to don/doff a shirt with Mod I. Educated pt on exercises/stretches for pain management and to improve strength of the R UE. Pt has now met his STGs and is adequate for DC from acute OT. Educated pt on recommendation of OP OT with pt agreeable. Subjective Pt up in the bathroom upon therapist arrival. "I'm going home today." Pain: 0-10 pain scale: "20"/10 Location: R UE Medical Precautions: No active isolations Proper PPE donned/doffed in accordance with facility standards. Fall Risk: Landin Fall Risk Score: 15 (Low Risk) Precautions/Restrictions: N/A Family/Caregiver Present: none Objective ADLs UE Dressing: Modified Independent Toileting: Modified Independent Pt able to perform bathroom level toileting with Mod I. He was dressed in his home going clothes upon therapist arrival to room. Educated pt on threading R UE first and removing R UE last during UB dressing. Pt was able to doff and don his shirt with Mod I. Additional time required but able to complete without physical assist. Transfers/Mobility Sit to stand: Independent Stand to sit: Independent Toilet: Independent Standing balance: Independent Functional mobility: Independent Pt able to complete transfers from EOB and toilet independently with no device. He walked from the bathroom without difficulty. Pt tolerated ~ 5 minutes of static standing. Good balance noted. Device(s) used: none Exercise Observed R UE ROM. Pt able to achieve ~ 25 degrees R shoulder flexion. Unable to complete exercises against resistance d/t poor ROM and MMT. Pt educated on gentle exercises/stretches for B UE and neck. Instructed pt to complete 10 reps 3x per day. Exercises included: scapular retractions, shoulder shrugs, lateral neck flexion, and neck circles. Pt able to demo 2-3 reps of each exercise while sitting at EOB. He denied exacerbation of pain during the exercises. Plan Continue acute OT per plan of care. Safety/Education Safety Safety Devices in place: call light within reach and left in bed Restraints: N/A Education Education Given To: patient Education Provided: OT Role, Plan of Care, Home Exercise Program, Discharge Recommendations, and Benefits of Increasing Activity Education Method: Verbal, Demonstration, and Teach Back Barriers to Learning: None Education Outcome: Verbalized Understanding and Demonstrated Understanding AM-PAC AM-PAC Inpatient Daily Activity Raw Score: 24 ADL Inpatient CMS G-Code Modifier: CH Goals Patient Stated Goal: to use R arm better Encounter Problems Encounter Problems (Active) Grooming Patient will complete daily grooming tasks mod I (Adequate for Discharge) Start: 02/15/24 Expected End: 02/22/24 Encounter Problems (Resolved) Dressing Upper Extremities Patient will complete upper body dressing mod I (Goal Met) Start: 02/15/24 Expected End: 02/22/24 Resolved: 02/17/24 Therapeutic Exercise Pt will demo good participation in RUE exercises and self ROM to improve strength and coordination of RUE. (Goal Met) Start: 02/15/24 Expected End: 02/22/24 Resolved: 02/17/24 Therapy Time Individual Co-treatment Time In 1355 Time Out 1406 Minutes 11 Timed Code Treatment Minutes: 8 Minutes (1 TA) Melodie Rebolledo OT Case discussed with residents, documentation reviewed, diagnostic studies reviewed, patient independently interviewed and examined. I have reviewed and agree with Dr. South's note except to the extent otherwise documented below. Continues to have R shoulder pain. No other complaints. Temp (24hrs), Av.6 C (97.8 F), Min:36.1 C (97 F), Max:36.9 C (98.5 F) BP 143/75 (BP Location: Left arm, Patient Position: Sitting) Pulse 70 Temp 36.9 C (98.5 F) (Temporal) Resp 17 Ht 5' 9" (1.753 m) Wt 185 lb 3 oz (84 kg) SpO2 99% BMI 27.35 kg/m Alert, cooperative, NAD RRR Scattered pulm wheezing Abd soft, protuberant, nontender Extr - no edema Neuro - Negative Spurling's. Good arm strength and pack changer strength bilaterally. 2+ UE reflexes. Pain with active or passive abduction of R shoulder. Tender over proximal biceps tendon. Lab Results Component Value Date INR 1.1 02/17/2024 INR 1.1 02/16/2024 INR 1.7 (H) 02/15/2024 PROTIME 11.4 02/17/2024 PROTIME 12.3 (H) 02/16/2024 PROTIME 17.2 (H) 02/15/2024 Lab Results Component Value Date WBC 8.3 02/17/2024 HGB 10.5 (L) 02/17/2024 HCT 31.3 (L) 02/17/2024 MCV 92.9 02/17/2024 PLT 235 02/17/2024 Lab Results Component Value Date NA 134 (L) 02/17/2024 K 4.0 02/17/2024 CL 98 02/17/2024 CO2 30 02/17/2024 BUN 21 (H) 02/17/2024 CREATININE 0.69 02/17/2024 GLUCOSE 106 (H) 02/17/2024 CALCIUM 8.8 02/17/2024 Summary of singh issues: R shoulder pain/numbness - For MRI brain/C-spine today. This is more likely a rotator cuff or biceps tendon issue. If MRI negative, can likely dc with outpatient therapy Elevated INR - Cause unclear, as no history of warfarin and no other abnormalities of hepatic testing. Responded to vitamin K. OK to resume his DOAC. Cosider repeat INR after a few days on DOAC. HFrEF - stable - On metoprolol, losartan, spironolactone. Afib - rate controlled. Resuming apixaban. COPD - On Dulera. Consider adding LAMA. CAD - rosuvastatin. No ASA due to DOAC. Chronic hyponatremia - stable. Likely due to EtOH. See resident's note for additional details. Images from the original note were not included. Medical Teaching Service Progress Note Patient: Krystina Markham : 1955 Acct: [id number] PCP: JAMIA SIERRA MD Admitting Physician: Charlie Westfall MD Admission Date: 02/13/2024 Admitting Diagnosis: Right arm numbness [R20.0] Stroke-like symptoms [R29.90] Unit/Bed: [facility] Hospital Day: 4 Code Status: Full Code Subjective: Overnight events: No significant overnight events. Patient assessed at bedside this morning. Denies SOB, CP, abdominal pain, or LE edema. Endorses continued R shoulder pain, but states numbness in R arm/hand has improved. Had a BM and urinated just prior to exam. Does not have any acute complaints at the time. Objective: Vitals: 02/16/24 2017 02/17/24 0006 02/17/24 0521 02/17/24 0900 BP: 123/67 126/66 129/76 BP Location: Left arm Left arm Right arm Patient Position: Sitting Lying Lying Pulse: 73 69 67 78 Resp: 18 16 16 18 Temp: 36.7 C (98 F) 36.6 C (97.8 F) 36.1 C (97 F) TempSrc: Temporal Temporal Temporal SpO2: 98% 93% 96% 97% Weight: Height: Temp (24hrs), Av.4 C (97.6 F), Min:36.1 C (97 F), Max:36.7 C (98 F) Intake/Output Summary (Last 24 hours) at 02/17/2024 0931 Last data filed at 02/16/2024 1829 Gross per 24 hour Intake 800 ml Output -- Net 800 ml Physical Exam Vitals and nursing note reviewed. Constitutional: General: He is not in acute distress. Appearance: He is overweight. He is not ill-appearing. Comments: Unkempt appearance, shirtless Cardiovascular: Rate and Rhythm: Normal rate and regular rhythm. Heart sounds: Normal heart sounds. No murmur heard. No friction rub. No gallop. Pulmonary: Effort: Pulmonary effort is normal. No respiratory distress. Breath sounds: Wheezing present. No rhonchi or rales. Comments: Wheezing improved today Abdominal: General: Abdomen is protuberant. Bowel sounds are normal. Tenderness: There is no abdominal tenderness. Musculoskeletal: Right lower leg: No edema. Left lower leg: No edema. Skin: General: Skin is warm and dry. Neurological: Mental Status: He is alert. Psychiatric: Behavior: Behavior is cooperative. Polanco: No Drains: No Central Line/Port: No Intubated: No Diet: Adult diet Regular; No Added Salt (3-4 gm) Medications: apixaban, 5 mg, Oral, BID folic acid, 1,000 mcg, Oral, q AM ipratropium-albuterol, 3 mL, Nebulization, BID losartan, 25 mg, Oral, Daily metoprolol succinate XL, 100 mg, Oral, BID mometasone-formoterol, 2 puff, Inhalation, BID montelukast, 10 mg, Oral, qPM nicotine, 1 patch, TransDERmal, Daily [Held by provider] rosuvastatin, 40 mg, Oral, Nightly [Held by provider] sertraline, 100 mg, Oral, q AM spironolactone, 25 mg, Oral, Nightly therapeutic multivitamin-minerals, 1 tablet, Oral, Daily thiamine, 100 mg, Oral, Daily torsemide, 20 mg, Oral, BID Continuous Infusions: PRN Meds: PRN medications: acetaminophen OR acetaminophen, labetalol, LORazepam OR LORazepam OR LORazepam OR LORazepam OR LORazepam OR LORazepam OR LORazepam OR LORazepam, polyethylene glycol (PEG) 3350, sodium chloride 0.9% Labs: CBC: Results from last 7 days Lab Units 02/17/2451602/16/2443202/15/2443102/14/2460302/13/24 1840 WBC AUTO 10*3/uL 8.3 7.2 8.6 < > 10.1 HEMOGLOBIN g/dL 10.5* 12.4* 12.9* < > 12.8* HEMATOCRIT % 31.3* 37.7* 37.6* < > 37.0* PLATELETS AUTO 10*3/uL 235 279 296 < > 299 NEUTROS PCT AUTO % -- -- -- -- 78.9 LYMPHS PCT AUTO % -- -- -- -- 10.6* MONOS PCT AUTO % -- -- -- -- 7.3 EOS PCT AUTO % -- -- -- -- 2.0 < > = values in this interval not displayed. BMP: Results from last 7 days Lab Units 02/17/2451602/16/2443202/15/24431 SODIUM mmol/L 134* 132* 134* POTASSIUM mmol/L 4.0 4.2 3.5 CHLORIDE mmol/L 98 97* 96* CO2 mmol/L 30 30 29 BUN mg/dL 21* 20 18 CREATININE mg/dL 0.69 0.72 0.78 GLUCOSE mg/dL 106* 101* 89 CALCIUM mg/dL 8.8 9.1 9.0 LIVER PROFILE: Results from last 7 days Lab Units 02/17/2451602/16/2443202/15/24431 ALK PHOS U/L 104 95 102 BILIRUBIN TOTAL mg/dL 0.6 0.7 0.6 PROTEIN TOTAL g/dL 6.7 7.0 6.7 ALT U/L 16 16 15 AST U/L 29 30 33 PT/INR: Results from last 7 days Lab Units 02/17/2451602/16/2443202/15/242 02/14/24 0602/13/242017 APTT s -- -- -- -- 58.1* INR 1.1 1.1 1.7* < > 5.4* < > = values in this interval not displayed. CARDIAC ENZYMES: Results from last 7 days Lab Units 02/14/24204802/14/2422702/13/24222302/13/24 184 CK TOTAL U/L 110 -- -- -- TROPONIN I ng/mL -- 0.025 0.026 0.023 Procalcitonin: No results found for: "PROCAL" Glucose: Results from last 7 days Lab Units 02/13/24195302/13/24 184 POCT GLUCOSE mg/dL 110 110* ASSESSMENT/PLAN: Patient Active Problem List Diagnosis Date Noted Right arm numbness 02/13/2024 Persistent depressive disorder 02/13/2024 DELORES (obstructive sleep apnea) 02/13/2024 Poor compliance with medication 02/13/2024 On continuous oral anticoagulation 11/21/2023 Medical non-compliance 11/12/2023 Anemia in other chronic diseases classified elsewhere 01/01/2023 Closed fracture of neck of left humerus with routine healing 12/31/2022 Hyponatremia 12/29/2022 COPD exacerbation ([facility]) 09/13/2022 Alcohol abuse 07/28/2022 Presence of implantable cardioverter-defibrillator (ICD) 07/19/2022 Chest pain, unspecified type 07/17/2022 Hypochloremia 07/17/2022 Tobacco abuse 07/17/2022 HFrEF (heart failure with reduced ejection fraction) ([facility]) 07/17/2022 Permanent atrial fibrillation ([facility]) 08/25/2021 History of rib fracture 08/25/2021 Chronic hyponatremia 08/25/2021 Essential hypertension 08/25/2021 COPD (chronic obstructive pulmonary disease) (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) 04/10/2017 Cor, pulmonale, acute (CMS/HCC) ([facility]) 02/01/2016 Raynaud phenomenon 09/10/2015 1. Right shoulder pain and numbness 2/2 Stroke rule out vs MSK - Neuro consulted appreciate recs - less likely to be stroke- Left Motor Cortex - MRI brain and MRI chest - NAP - Will need EMG and NCS 4-6 weeks since the onset of the symptoms to look for denervation - CXR - r/o malignancy - probably benefit from occult malignancy workup if other tests are unremarkable - will continue to follow imaging results & arrange EMG and NCS outpatient, once discharged -Rosuvastatin -MRI Brain- will need to have deactivate pacer & remove ankle brace (contacted [employer]) - MR Cervical spine - Cervical spondylosis most pronounced at the C3-C4 level -Per MRI, Shoulder BB is fine, may show artifact -Monitor may need to be removed: [employer] is who put it on. Case officer states to cut it off at time of MRI and return to her at discharge -May be delayed due to approval from cardio to deactivate pacer -A1c- 5.9 - Lipid panel- wnl -PT/OT- outpatient PT -CM/SW -CBC/BMP daily HFrEF with biventricular pacer implantation in 2019 TTE 11/2023 EF: 21% Severe global hypokinesis present. Mild to moderate right-sided systolic dysfunction. ICD check last performed on 10/02/2023: normal device fxn, afib ; elevated BNP 5,900 - home torsemide 20mg BID PO - home spironolactone 25mg daily - Losartan 25 mg daily - Metoprolol succinate 100 mg twice daily Permanent A-fib with pacer -Continue home medications -Hold Eliquis 5 mg twice daily, has not been taking since December due to cost. Hold due to elevated INR -Metoprolol succinate 100 mg twice daily CAD - home rosuvastatin 40mg nightly COPD Tobacco use - montelukast 10 mg - Home inhalers: spriva - duoneb q4 hours scheduled - Prevention: Smoking cessation discussed and encouraged - nicotine patch Prolonged QTC 564>522 - avoid QTC prolonging medications 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 Mg 1.6(r) with 4g magnesium sulfate, Ca wnl B12 wnl RUQ US: - monitor Na - folic acid, thiamine -Mg (r) 4g mgso4 - multivitamin -Folate level - ETOH and Ethyl gluconride - MAT - CIWA and PRN ativan if CIWA >8 Coagulopathy INR wnl 1.1 Nurse note states he took warfarin in 2021, denies. Denies use and rat poison exposure. -Suspected liver dysfunction vs less likely warfarin intake - GI recommended vitamin K for 3 days, completed (02/13-) Obstructive sleep apnea -AutoPap Depression -Hold Zoloft 100 mg daily Concern for dementia Not oriented to time at admission Hx of poor medical compliance FEN/GI/DVT IVF: None Electrolytes: Monitor and replace per protocols Diet: General GI PPX: No DVT Prophylaxis: No prophylaxis/Already on anticoagulation: Eliquis Telemetry: Not on Telemetry DISPOSITION: MRI if able, Neuro recs. Outpatient PT/OT. Patient awaiting MRI images Will be seen by Neurology tomorrow Images from the original note were not included. Medical Teaching Service Progress Note Patient: Krystina Markham : 1955 Acct: [id number] PCP: JAMIA SIERRA MD Admitting Physician: Charlie Westfall MD Admission Date: 02/13/2024 Admitting Diagnosis: Right arm numbness [R20.0] Stroke-like symptoms [R29.90] Unit/Bed: [facility] B Hospital Day: 3 Code Status: Full Code Subjective: Overnight events: No significant overnight events. Patient assessed at bedside this am. Patient reports that his breathing is okay now that he is on 1 L of oxygen. Does not have any acute complaints at the time. Objective: Vitals: 02/16/24 0745 02/16/24 0746 02/16/24 0748 02/16/24 0832 BP: 128/61 BP Location: Left arm Patient Position: Sitting Pulse: 65 60 60 63 Resp: 20 18 Temp: 36.2 C (97.2 F) TempSrc: Temporal SpO2: 96% 96% 94% 92% Weight: Height: Temp (24hrs), Av.1 C (97 F), Min:35.9 C (96.7 F), Max:36.2 C (97.2 F) Intake/Output Summary (Last 24 hours) at 02/16/2024 1209 Last data filed at 02/16/2024 0926 Gross per 24 hour Intake 950 ml Output -- Net 950 ml Physical Exam Vitals and nursing note reviewed. Constitutional: General: He is not in acute distress. Appearance: He is not ill-appearing. Cardiovascular: Rate and Rhythm: Normal rate and regular rhythm. Heart sounds: Normal heart sounds. No murmur heard. No friction rub. No gallop. Pulmonary: Effort: Pulmonary effort is normal. No respiratory distress. Breath sounds: Wheezing (diffuse end-expiratory b/l) present. No rhonchi or rales. Neurological: Mental Status: He is alert. Polanco: No Drains: No Central Line/Port: No Intubated: No Diet: Adult diet Regular Medications: apixaban, 5 mg, Oral, BID folic acid, 1,000 mcg, Oral, q AM ipratropium-albuterol, 3 mL, Nebulization, BID losartan, 25 mg, Oral, Daily metoprolol succinate XL, 100 mg, Oral, BID mometasone-formoterol, 2 puff, Inhalation, BID montelukast, 10 mg, Oral, qPM nicotine, 1 patch, TransDERmal, Daily phytonadione, 10 mg, Oral, Daily [Held by provider] rosuvastatin, 40 mg, Oral, Nightly [Held by provider] sertraline, 100 mg, Oral, q AM spironolactone, 25 mg, Oral, Nightly therapeutic multivitamin-minerals, 1 tablet, Oral, Daily thiamine, 100 mg, Oral, Daily torsemide, 20 mg, Oral, BID Continuous Infusions: PRN Meds: PRN medications: acetaminophen OR acetaminophen, labetalol, LORazepam OR LORazepam OR LORazepam OR LORazepam OR LORazepam OR LORazepam OR LORazepam OR LORazepam, polyethylene glycol (PEG) 3350, sodium chloride 0.9% Labs: CBC: Results from last 7 days Lab Units 02/16/24 0433 02/15/24 0432 02/14/24 0604 02/13/24 1840 WBC AUTO 10*3/uL 7.2 8.6 10.2 10.1 HEMOGLOBIN g/dL 12.4* 12.9* 13.0 12.8* HEMATOCRIT % 37.7* 37.6* 37.6* 37.0* PLATELETS AUTO 10*3/uL 279 296 311 299 NEUTROS PCT AUTO % -- -- -- 78.9 LYMPHS PCT AUTO % -- -- -- 10.6* MONOS PCT AUTO % -- -- -- 7.3 EOS PCT AUTO % -- -- -- 2.0 BMP: Results from last 7 days Lab Units 02/16/24 04302/15/24 0432 02/14/24 0604 SODIUM mmol/L 132* 134* 135 POTASSIUM mmol/L 4.2 3.5 4.0 CHLORIDE mmol/L 97* 96* 98 CO2 mmol/L 30 29 26 BUN mg/dL 20 18 7* CREATININE mg/dL 0.72 0.78 0.59* GLUCOSE mg/dL 101* 89 105* CALCIUM mg/dL 9.1 9.0 9.7 LIVER PROFILE: Results from last 7 days Lab Units 02/16/24 04302/15/24 04302/14/24 0604 ALK PHOS U/L 95 102 104 BILIRUBIN TOTAL mg/dL 0.7 0.6 0.6 PROTEIN TOTAL g/dL 7.0 6.7 7.3 ALT U/L 16 15 16 AST U/L 30 33 39 PT/INR: Results from last 7 days Lab Units 02/16/2443202/15/2443102/14/24 0602/13/242017 APTT s -- -- -- 58.1* INR 1.1 1.7* 6.9* 5.4* CARDIAC ENZYMES: Results from last 7 days Lab Units 02/14/24204802/14/2422702/13/24222302/13/241839 CK TOTAL U/L 110 -- -- -- TROPONIN I ng/mL -- 0.025 0.026 0.023 Procalcitonin: No results found for: "PROCAL" Glucose: Results from last 7 days Lab Units 02/13/24195302/13/241845 POCT GLUCOSE mg/dL 110 110* ASSESSMENT/PLAN: Patient Active Problem List Diagnosis Date Noted Right arm numbness 02/13/2024 Persistent depressive disorder 02/13/2024 DELORES (obstructive sleep apnea) 02/13/2024 Poor compliance with medication 02/13/2024 On continuous oral anticoagulation 11/21/2023 Medical non-compliance 11/12/2023 Anemia in other chronic diseases classified elsewhere 01/01/2023 Closed fracture of neck of left humerus with routine healing 12/31/2022 Hyponatremia 12/29/2022 COPD exacerbation ([facility]) 09/13/2022 Alcohol abuse 07/28/2022 Presence of implantable cardioverter-defibrillator (ICD) 07/19/2022 Chest pain, unspecified type 07/17/2022 Hypochloremia 07/17/2022 Tobacco abuse 07/17/2022 HFrEF (heart failure with reduced ejection fraction) ([facility]) 07/17/2022 Permanent atrial fibrillation ([facility]) 08/25/2021 History of rib fracture 08/25/2021 Chronic hyponatremia 08/25/2021 Essential hypertension 08/25/2021 COPD (chronic obstructive pulmonary disease) (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) 04/10/2017 Cor, pulmonale, acute (CMS/HCC) ([facility]) 02/01/2016 Raynaud phenomenon 09/10/2015 1. Right shoulder pain and numbness 2/2 Stroke rule out vs MSK - Neuro consulted appreciate recs - less likely to be stroke- Left Motor Cortex - MRI brain and MRI chest - Will need EMG and NCS 4-6 weeks since the onset of the symptoms to look for denervation - CXR - r/o malignancy - probably benefit from occult malignancy workup if other tests are unremarkable - will continue to follow imaging results & arrange EMG and NCS outpatient, once discharged -Rosuvastatin -MRI Brain- will need to have deactivate pacer & remove ankle brace (contacted [facility]) - MR Cervical spine -Per MRI, Shoulder BB is fine, may show artifact -Monitor may need to be removed: [employer] is who put it on. Case officer states to cut it off at time of MRI and return to her at discharge -May be delayed due to approval from cardio to deactivate pacer -A1c- 5.9 - Lipid panel- wnl -PT/OT- outpatient PT -CM/SW -CBC/BMP daily HFrEF with biventricular pacer implantation in 2019 TTE 11/2023 EF: 21% Severe global hypokinesis present. Mild to moderate right-sided systolic dysfunction. ICD check last performed on 10/02/2023: normal device fxn, afib ; elevated BNP 5,900 - home torsemide 20mg BID PO - home spironolactone 25mg daily - Losartan 25 mg daily - Metoprolol succinate 100 mg twice daily Permanent A-fib with pacer -Continue home medications -Hold Eliquis 5 mg twice daily, has not been taking since December due to cost. Hold due to elevated INR -Metoprolol succinate 100 mg twice daily CAD - home rosuvastatin 40mg nightly COPD Tobacco use - montelukast 10 mg - Home inhalers: spriva - duoneb q4 hours scheduled - Prevention: Smoking cessation discussed and encouraged - nicotine patch Prolonged QTC 564>522 - avoid QTC prolonging medications 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 Mg 1.6(r) with 4g magnesium sulfate, Ca wnl B12 wnl RUQ US: - monitor Na - folic acid, thiamine -Mg (r) 4g mgso4 - multivitamin -Folate level - ETOH and Ethyl gluconride - MAT - CIWA and PRN ativan if CIWA >8 Coagulopathy INR elevated 5.4>6.9 Nurse note states he took warfarin in 2021, denies. Denies use and rat poison exposure. -Suspected liver dysfunction vs less likely warfarin intake Obstructive sleep apnea -AutoPap Depression -Hold Zoloft 100 mg daily Concern for dementia Not oriented to time at admission Hx of poor medical compliance FEN/GI/DVT IVF: None Electrolytes: Monitor and replace per protocols Diet: General GI PPX: No DVT Prophylaxis: No prophylaxis/Already on anticoagulation: Eliquis Telemetry: Not on Telemetry DISPOSITION: MRI if able, monitor INR, Neuro recs, will wean oxygen as tolerated Attending Supervising Physician's Attestation Statement I completed an independent history and exam today 02/16/24. I discussed the findings and plans with the resident physician and agree as documented in their note. Chief Complaint Patient presents with Shoulder Pain Pt presents to ED with c/o R shoulder pain x2 weeks. States that today his right hand started going numb yesterday and worsened around 0800 today. Denies h/o stroke. States that he is supposed to take Eliquis every day but hasn't been due to cost. Subjective Pt admitted for right arm pain and weakness. Concern for CVA given pts risk factors. Pt with known ETOH abuse, HFrEF (21%) afib with bilat pacer, COPD, CAD. Found to have an INR of >6 with no hx of warfarin use This am - pt was comfortable in bed. Comp of right arm pain with movement. No new comp. Review of Systems Constitutional: Positive for activity change. Negative for appetite change and fever. HENT: Negative for trouble swallowing. Respiratory: Negative for shortness of breath. Cardiovascular: Negative for chest pain and leg swelling. Gastrointestinal: Negative for abdominal distention, abdominal pain and nausea. Genitourinary: Negative for difficulty urinating. Musculoskeletal: Positive for arthralgias. Negative for joint swelling. Skin: Negative for color change. Neurological: Negative for speech difficulty and light-headedness. Psychiatric/Behavioral: Negative for agitation, behavioral problems and confusion. Objective Physical Exam Vitals and nursing note reviewed. Constitutional: General: He is not in acute distress. Appearance: Normal appearance. He is normal weight. He is not ill-appearing or diaphoretic. Cardiovascular: Rate and Rhythm: Normal rate and regular rhythm. Pulses: Normal pulses. Heart sounds: Normal heart sounds. No murmur heard. Pulmonary: Effort: Pulmonary effort is normal. No respiratory distress. Breath sounds: Normal breath sounds. No wheezing. Abdominal: General: Bowel sounds are normal. There is no distension. Palpations: Abdomen is soft. Tenderness: There is no abdominal tenderness. Musculoskeletal: Right lower leg: No edema. Left lower leg: No edema. Skin: General: Skin is warm and dry. Coloration: Skin is not jaundiced. Findings: No erythema. Neurological: Mental Status: He is alert. Mental status is at baseline. Cranial Nerves: No cranial nerve deficit. Psychiatric: Mood and Affect: Mood normal. Behavior: Behavior normal. Very limited ROM in right shoulder- can lift actively only about 30 degrees, passive up to about 60 - due to pain. No erythema or swelling of joint. No other focal neuro deficits Last Recorded Vitals Blood pressure 128/61, pulse 63, temperature 36.2 C (97.2 F), temperature source Temporal, resp. rate 18, height 5' 9" (1.753 m), weight 185 lb 3 oz (84 kg), SpO2 92%. Lab Results Component Value Date WBC 7.2 02/16/2024 HGB 12.4 (L) 02/16/2024 HCT 37.7 (L) 02/16/2024 MCV 93.3 02/16/2024 PLT 279 02/16/2024 Lab Results Component Value Date GLUCOSE 101 (H) 02/16/2024 CALCIUM 9.1 02/16/2024 NA 132 (L) 02/16/2024 K 4.2 02/16/2024 CO2 30 02/16/2024 CL 97 (L) 02/16/2024 BUN 20 02/16/2024 CREATININE 0.72 02/16/2024 === 02/13/24 === XR CERVICAL SPINE 2-3 VIEWS - Impression - 1. No acute osseous abnormality, with limited visualization of cervicothoracic junction. 2. Mild degenerative change. Report Dictated on Electronically Signed By: Alirio Gamboa MD Electronically Signed Date/Time: 02/13/2024 10:05 PM EDT === 02/13/24 === US ABDOMEN LIMITED - Impression - 1. Gallbladder distention without apparent cholelithiasis. 2. Findings which may represent fatty infiltration in the liver versus nonspecific hepatocellular disease, including cirrhotic change. Correlation with appropriate laboratory values and follow-up suggested. 3. Small right renal cyst. Report Dictated on Electronically Signed By: Alirio Gamboa MD Electronically Signed Date/Time: 02/13/2024 11:02 PM EDT Assessment/Plan Principal Problem: Right arm numbness Active Problems: Hyponatremia Persistent depressive disorder DELORES (obstructive sleep apnea) Poor compliance with medication Permanent atrial fibrillation (HCC) Essential hypertension HFrEF (heart failure with reduced ejection fraction) ([facility]) Right arm pain and numbness - CVA vs MSK CT head nl MRI head - will need to deactivate pacer through cardio Will need to remove ankle brace - contacted [facility] Foreign body in shoulder is ok per domestic technician No focal signs for CVA. Very low NIH score Would mostly benefit from shoulder tx like steroid injection or PT Elevated INR In setting of otherwise nl LFTs and no warfarin use Have ex- bring in meds to check Vitamin K per GI > responded well now 1.1 GI consult appreciated Ultrasound- done HFrEF- stable Cont GDMT Etoh abuse - last use unsure CIWA- normal Thiamine, folate Afib- rate controlled Hold doac due to high INR > ok to restart Prolonged QT Holding ssri Dispo- MRI if able , neuro consult, monitor INR after vitamin K Images from the original note were not included. OCCUPATIONAL THERAPY [facility] Initial Evaluation Name/MRN: Krystina Markham ([id number]) Evaluation Date: 02/15/2024 Date of : 1955 Admission Date: 02/13/2024 5:37 PM Age: 68 y.o. Room/Bed: [facility] B Discharge Recommendation: Outpatient OT Equipment Needed: No Assessment IMPRESSION: Pt admitted 02/12 with RUE pain and numbness. CT head negative for acute infarct and xray of cervical spine negative for fracture. Neurology following. Pt is independent with ADLs and functional mobility at baseline. At time of eval, pt is mod I-min A with ADLs and independent with functional mobility. Pt is limited by RUE motor deficits, pain, and numbness. Pt is functioning below baseline and would benefit from skilled OT services to maximize safety and independence with ADLs and functional mobility. Rec OP OT vs PT. Performance Deficits /Impairments: Increased Pain, Decreased ADL status, Decreased ROM, Decreased Strength, Decreased Sensation, and Decreased High Level IADLs Prognosis: Good Decision Making: Medium Complexity Subjective Pt sitting EOB at arrival. Pt ok to see per RN. O2 in tact. Pt was pleasant and agreeable to OT eval. Pain: 0-10 pain scale: 10/10 Location: R shoulder Past Medical History: Past Medical History: Diagnosis Date Alcohol consumption heavy 09/10/2015 Asthma Atrial fibrillation ([facility]) CHF (congestive heart failure) ([facility]) 01/31/2016 COPD (chronic obstructive pulmonary disease) ([facility]) 09/10/2015 Cor, pulmonale, acute (CMS/HCC) ([facility]) Deep venous thrombosis (HCC) 02/2016 Depression Hx of blood clots Obesity 09/10/2015 DELORES (obstructive sleep apnea) Pulmonary embolus ([facility]) 6 16 Raynaud phenomenon 09/10/2015 Smoker 09/10/2015 Past Surgical History: Past Surgical History: Procedure Laterality Date ABDOMINAL SURGERY BRONCHOSCOPY 02/25/2020 BRONCHOSCOPY (HISTORICAL) 02/25/2020 COLONOSCOPY 10/27/[address] CHEST ANGIOGRAM W AND/OR WO IV CONTRAST 07/12/2022 CT CHEST ANGIOGRAM W AND/OR WO IV CONTRAST 07/12/2022 [facility] CT IMAGING FINGER AMPUTATION Left HERNIA REPAIR NOSE SURGERY Admission Diagnosis: Patient Active Problem List Diagnosis Date Noted Right arm numbness 02/13/2024 Persistent depressive disorder 02/13/2024 DELORES (obstructive sleep apnea) 02/13/2024 Poor compliance with medication 02/13/2024 On continuous oral anticoagulation 11/21/2023 Medical non-compliance 11/12/2023 Anemia in other chronic diseases classified elsewhere 01/01/2023 Closed fracture of neck of left humerus with routine healing 12/31/2022 Hyponatremia 12/29/2022 COPD exacerbation ([facility]) 09/13/2022 Alcohol abuse 07/28/2022 Presence of implantable cardioverter-defibrillator (ICD) 07/19/2022 Chest pain, unspecified type 07/17/2022 Hypochloremia 07/17/2022 Tobacco abuse 07/17/2022 HFrEF (heart failure with reduced ejection fraction) ([facility]) 07/17/2022 Permanent atrial fibrillation ([facility]) 08/25/2021 History of rib fracture 08/25/2021 Chronic hyponatremia 08/25/2021 Essential hypertension 08/25/2021 COPD (chronic obstructive pulmonary disease) (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 History of adenomatous polyp of colon 11/18/2019 Diverticulosis of large intestine without diverticulitis 10/27/2019 Compression fracture of thoracic vertebra with routine healing 10/07/2019 Osteoporosis 10/07/2019 Venous stasis dermatitis of left lower extremity 07/17/2017 Current moderate episode of major depressive disorder without prior episode (HCC) 04/10/2017 Cor, pulmonale, acute (CMS/HCC) (HCC) 02/01/2016 Raynaud phenomenon 09/10/2015 Medical Precautions: No active isolations Proper PPE donned/doffed in accordance with facility standards. Fall Risk: Landin Fall Risk Score: 35 (Medium Risk) Precautions/Restrictions: N/A Family/Caregiver Present: none Overall Cognitive Status: WNL Overall Orientation Status: Oriented x4 Social/Functional History Patient admitted from home. Lives With: Spouse Type of Home: single family home Home Layout: Multi-Level Home Home Access: Stairs to Enter with Rails (# of stairs: 3) Bathroom Shower/Tub: Tub/Shower Combo Toilet: Standard Home Equipment: none Homemaking Responsibilities: Independent Receives Help From: None Active Food Services Director: N/A Prior Level of Function ADL Assistance: Independent Ambulation Assistance: Independent Transfer Assistance: Independent Objective ADLs No formal ADLs completed this date. Pt reporting donning socks independently today. Due to RUE deficits, pt anticipated to require min A for bathing UB, grooming, and UB dressing. Pt has been using L hand to complete all clothing mgmt and feeding tasks Upper Extremity Assessment AROM: Impaired: R shoulder no ROM noted, all others WFL PROM: Impaired: R shoulder ~90 degrees Strength: Exceptions: R shoulder 1/5, all others functional with mild weakness Vision: no visual deficits Hearing: normal Bed Mobility NT- Pt sitting EOB pre/post session Exercise: Pt educated on and completed scapular retraction, chin tucks, and educated on passive ROM of R shoulder. Transfers/Functional Mobility Sit to stand: Independent Stand to sit: Independent Functional mobility: Independent Pt completed stand from EOB and functional mobility within room independently with no LOB or safety concerns. Device(s) used: none Sensation: Impaired: numbness in R lateral shoulder Hand dominance: Right AM-PAC AM-PAC Inpatient Daily Activity Raw Score: 21 ADL Inpatient [facility] G-Code Modifier: CJ Plan Pt would benefit from skilled acute OT services to address Strengthening, ROM, Endurance Training, Neuromuscular Re-Education Training, Pain Management, Safety Education and Training, Patient/Caregiver Training, Equipment Evaluation/Education, and Self-Care/ADL Training. Frequency: 5 visits during current hospital admission or until additional recommendations are made Barriers: Pain and Decreased sensation Prognosis: good Safety/Education Safety Safety Devices in place: All fall risk precautions in place, call light within reach, left in bed, and no alarms engaged upon entry Restraints: N/A Education Education Given To: patient Education Provided: OT Role, Plan of Care, Discharge Recommendations, and Benefits of Increasing Activity Education Method: Verbal and Teach Back Barriers to Learning: None Education Outcome: Verbalized Understanding, Demonstrated Understanding, and Continued Education Needed Goals Patient Stated Goal: to use R arm better Encounter Problems Encounter Problems (Active) Dressing Upper Extremities Patient will complete upper body dressing mod I Start: 02/15/24 Expected End: 02/22/24 Grooming Patient will complete daily grooming tasks mod I Start: 02/15/24 Expected End: 02/22/24 Therapeutic Exercise Pt will demo good participation in RUE exercises and self ROM to improve strength and coordination of RUE. Start: 02/15/24 Expected End: 02/22/24 Therapy Time Individual Co-treatment Time In 1241 Time Out 1249 Minutes 8 Wanda Harper OT Patient's Occupational Therapy Plan of Care supervision is transferred to a [facility] Occupational Therapist. Goals and/or treatment plan was established in collaboration with patient/family/other representatives. Images from the original note were not included. Medical Teaching Service Progress Note Patient: Krystina Markham : 1955 Acct: [id number] PCP: JAMIA SIERRA MD Admitting Physician: Charlie Westfall MD Admission Date: 02/13/2024 Admitting Diagnosis: Right arm numbness [R20.0] Stroke-like symptoms [R29.90] Unit/Bed: [facility] B Hospital Day: 2 Code Status: Full Code Subjective: Overnight events: No significant overnight events. Patient assessed at bedside this am. Reports that he has wheezing at baseline and hasn't been taking his inhaler regularly. Is tolerating PO well. Denies having CP and SOB. Objective: Vitals: 02/15/24 0744 02/15/24 0747 02/15/24 0747 02/15/24 0826 BP: 92/65 BP Location: Left arm Patient Position: Sitting Pulse: 65 65 62 68 Resp: 16 18 Temp: 36.5 C (97.7 F) TempSrc: Temporal SpO2: (!) 87% (!) 89% 91% 91% Weight: Height: Temp (24hrs), Av.8 C (98.2 F), Min:36.5 C (97.7 F), Max:37.3 C (99.1 F) Intake/Output Summary (Last 24 hours) at 02/15/2024 1000 Last data filed at 02/15/2024 0744 Gross per 24 hour Intake 1300 ml Output -- Net 1300 ml Physical Exam Vitals and nursing note reviewed. Constitutional: General: He is not in acute distress. Appearance: Normal appearance. He is not ill-appearing. Cardiovascular: Rate and Rhythm: Normal rate and regular rhythm. Heart sounds: Normal heart sounds. No murmur heard. No friction rub. No gallop. Pulmonary: Effort: Pulmonary effort is normal. Breath sounds: Wheezing (diffuse bilaterally) present. No rhonchi or rales. Neurological: Mental Status: He is alert. Polanco: No Drains: No Central Line/Port: No Intubated: No Diet: Adult diet Regular Medications: [Held by provider] apixaban, 5 mg, Oral, BID folic acid, 1,000 mcg, Oral, q AM ipratropium-albuterol, 3 mL, Nebulization, BID losartan, 25 mg, Oral, Daily metoprolol succinate XL, 100 mg, Oral, BID mometasone-formoterol, 2 puff, Inhalation, BID montelukast, 10 mg, Oral, qPM nicotine, 1 patch, TransDERmal, Daily phytonadione, 10 mg, Oral, Daily [Held by provider] rosuvastatin, 40 mg, Oral, Nightly [Held by provider] sertraline, 100 mg, Oral, q AM spironolactone, 25 mg, Oral, Nightly therapeutic multivitamin-minerals, 1 tablet, Oral, Daily thiamine, 100 mg, Oral, Daily torsemide, 20 mg, Oral, BID Continuous Infusions: PRN Meds: PRN medications: acetaminophen OR acetaminophen, labetalol, LORazepam OR LORazepam OR LORazepam OR LORazepam OR LORazepam OR LORazepam OR LORazepam OR LORazepam, polyethylene glycol (PEG) 3350, sodium chloride 0.9% Labs: CBC: Results from last 7 days Lab Units 02/15/2443102/14/2460302/13/24 1840 WBC AUTO 10*3/uL 8.6 10.2 10.1 HEMOGLOBIN g/dL 12.9* 13.0 12.8* HEMATOCRIT % 37.6* 37.6* 37.0* PLATELETS AUTO 10*3/uL 296 311 299 NEUTROS PCT AUTO % -- -- 78.9 LYMPHS PCT AUTO % -- -- 10.6* MONOS PCT AUTO % -- -- 7.3 EOS PCT AUTO % -- -- 2.0 BMP: Results from last 7 days Lab Units 02/15/2443102/14/2460302/13/24 1840 SODIUM mmol/L 134* 135 133* POTASSIUM mmol/L 3.5 4.0 4.0 CHLORIDE mmol/L 96* 98 97* CO2 mmol/L 29 26 23 BUN mg/dL 18 7* 6* CREATININE mg/dL 0.78 0.59* 0.57* GLUCOSE mg/dL 89 105* 99 CALCIUM mg/dL 9.0 9.7 9.8 LIVER PROFILE: Results from last 7 days Lab Units 02/15/2443102/14/2460302/13/24 1840 ALK PHOS U/L 102 104 119 BILIRUBIN TOTAL mg/dL 0.6 0.6 0.6 PROTEIN TOTAL g/dL 6.7 7.3 7.6 ALT U/L 15 16 16 AST U/L 33 39 32 PT/INR: Results from last 7 days Lab Units 02/15/2443102/14/2460302/13/242017 APTT s -- -- 58.1* INR 1.7* 6.9* 5.4* CARDIAC ENZYMES: Results from last 7 days Lab Units 02/14/24204802/14/248 02/13/24 2224 02/13/24 1840 CK TOTAL U/L 110 -- -- -- TROPONIN I ng/mL -- 0.025 0.026 0.023 Procalcitonin: No results found for: "PROCAL" Glucose: Results from last 7 days Lab Units 02/13/24195302/13/24 1846 POCT GLUCOSE mg/dL 110 110* ASSESSMENT/PLAN: Patient Active Problem List Diagnosis Date Noted Right arm numbness 02/13/2024 Persistent depressive disorder 02/13/2024 DELORES (obstructive sleep apnea) 02/13/2024 Poor compliance with medication 02/13/2024 On continuous oral anticoagulation 11/21/2023 Medical non-compliance 11/12/2023 Anemia in other chronic diseases classified elsewhere 01/01/2023 Closed fracture of neck of left humerus with routine healing 12/31/2022 Hyponatremia 12/29/2022 COPD exacerbation ([facility]) 09/13/2022 Alcohol abuse 07/28/2022 Presence of implantable cardioverter-defibrillator (ICD) 07/19/2022 Chest pain, unspecified type 07/17/2022 Hypochloremia 07/17/2022 Tobacco abuse 07/17/2022 HFrEF (heart failure with reduced ejection fraction) ([facility]) 07/17/2022 Permanent atrial fibrillation ([facility]) 08/25/2021 History of rib fracture 08/25/2021 Chronic hyponatremia 08/25/2021 Essential hypertension 08/25/2021 COPD (chronic obstructive pulmonary disease) (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) 04/10/2017 Cor, pulmonale, acute (CMS/HCC) ([facility]) 02/01/2016 Raynaud phenomenon 09/10/2015 1. Right shoulder pain and numbness 2/2 Stroke rule out vs MSK - Neuro consulted appreciate recs - less likely to be stroke- Left Motor Cortex - agree w/ getting MRI brain and MRI C- Spine w/o contrast - I added MRI Chest with and without contrast - brachial plexus - Plan slight sedation and premedication for pain to help with high quality images - He will need EMG and NCS 4-6 weeks since the onset of the symptoms to look for denervation - CXR - r/o malignancy - probably benefit from occult malignancy workup if other tests are unremarkable - PT/OT - will continue to follow imaging results & arrange EMG and NCS outpatient, once discharged -Rosuvastatin -MRI Brain - MR Cervical spine -Per MRI, Shoulder BB is fine, may show artifact -Monitor may need to be removed: [employer] is who put it on. Case officer states to cut it off at time of MRI and return to her at discharge -May be delayed due to approval from cardio to deactivate pacer -A1c- 5.9 - Lipid panel- wnl -PT/OT- outpatient PT -CM/SW -CBC/BMP daily HFrEF with biventricular pacer implantation in 2019 TTE 11/2023 EF: 21% Severe global hypokinesis present. Mild to moderate right-sided systolic dysfunction. ICD check last performed on 10/02/2023: normal device fxn, afib ; elevated BNP 5,900 - home torsemide 20mg BID PO - home spironolactone 25mg daily - Losartan 25 mg daily - Metoprolol succinate 100 mg twice daily Permanent A-fib with pacer -Continue home medications -Hold Eliquis 5 mg twice daily, has not been taking since December due to cost. Hold due to elevated INR -Metoprolol succinate 100 mg twice daily CAD - home rosuvastatin 40mg nightly COPD Tobacco use - montelukast 10 mg - Home inhalers: spriva - duoneb q4 hours scheduled - Prevention: Smoking cessation discussed and encouraged - nicotine patch Prolonged QTC 564>522 - avoid QTC prolonging medications 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 Mg 1.6(r) with 4g magnesium sulfate, Ca wnl B12 wnl RUQ US: - monitor Na - folic acid, thiamine -Mg (r) 4g mgso4 - multivitamin -Folate level - ETOH and Ethyl gluconride - MAT - CIWA and PRN ativan if CIWA >8 Coagulopathy INR elevated 5.4>6.9 Nurse note states he took warfarin in 2021, denies. Denies use and rat poison exposure. -Suspected liver dysfunction vs less likely warfarin intake Obstructive sleep apnea -AutoPap Depression -Hold Zoloft 100 mg daily Concern for dementia Not oriented to time at admission Hx of poor medical compliance FEN/GI/DVT IVF: None Electrolytes: Monitor and replace per protocols Diet: General GI PPX: No DVT Prophylaxis: No prophylaxis/Already on anticoagulation: HELD Eliquis Telemetry: Not on Telemetry DISPOSITION: awaiting MRI results, Neuro following Nutrition rescreen complete. Pt assigned a level one for nutrition care. Attending Supervising Physician's Attestation Statement I completed an independent history and exam today 02/14/24. I discussed the findings and plans with the resident physician and agree as documented in their note and H+P from 02/13/24 Subjective Pt admitted for right arm pain and weakness. Concern for CVA given pts risk factors. Pt with known ETOH abuse, HFrEF (21%) afib with bilat pacer, COPD, CAD. Found to have an INR of >6 with no hx of warfarin use This am - pt was comfortable in bed. Comp of right arm pain with movement. No new comp. Review of Systems Constitutional: Positive for activity change. Negative for appetite change and fever. HENT: Negative for trouble swallowing. Respiratory: Negative for shortness of breath. Cardiovascular: Negative for chest pain and leg swelling. Gastrointestinal: Negative for abdominal distention, abdominal pain and nausea. Genitourinary: Negative for difficulty urinating. Musculoskeletal: Positive for arthralgias. Negative for joint swelling. Skin: Negative for color change. Neurological: Negative for speech difficulty and light-headedness. Psychiatric/Behavioral: Negative for agitation, behavioral problems and confusion. Objective Physical Exam Vitals and nursing note reviewed. Constitutional: General: He is not in acute distress. Appearance: Normal appearance. He is normal weight. He is not ill-appearing or diaphoretic. Cardiovascular: Rate and Rhythm: Normal rate and regular rhythm. Pulses: Normal pulses. Heart sounds: Normal heart sounds. No murmur heard. Pulmonary: Effort: Pulmonary effort is normal. No respiratory distress. Breath sounds: Normal breath sounds. No wheezing. Abdominal: General: Bowel sounds are normal. There is no distension. Palpations: Abdomen is soft. Tenderness: There is no abdominal tenderness. Musculoskeletal: Right lower leg: No edema. Left lower leg: No edema. Skin: General: Skin is warm and dry. Coloration: Skin is not jaundiced. Findings: No erythema. Neurological: Mental Status: He is alert. Mental status is at baseline. Cranial Nerves: No cranial nerve deficit. Psychiatric: Mood and Affect: Mood normal. Behavior: Behavior normal. Last Recorded Vitals Blood pressure 136/86, pulse 64, temperature 36.4 C (97.5 F), temperature source Temporal, resp. rate 18, height 5' 9" (1.753 m), weight 185 lb 3 oz (84 kg), SpO2 91%. Lab Results Component Value Date WBC 10.2 02/14/2024 HGB 13.0 02/14/2024 HCT 37.6 (L) 02/14/2024 MCV 90.4 02/14/2024 PLT 311 02/14/2024 Lab Results Component Value Date GLUCOSE 105 (H) 02/14/2024 CALCIUM 9.7 02/14/2024 NA 135 02/14/2024 K 4.0 02/14/2024 CO2 26 02/14/2024 CL 98 02/14/2024 BUN 7 (L) 02/14/2024 CREATININE 0.59 (L) 02/14/2024 === 02/13/24 === XR CERVICAL SPINE 2-3 VIEWS - Impression - 1. No acute osseous abnormality, with limited visualization of cervicothoracic junction. 2. Mild degenerative change. Report Dictated on Electronically Signed By: Alriio Gamboa MD Electronically Signed Date/Time: 02/13/2024 10:05 PM EDT === 02/13/24 === US ABDOMEN LIMITED - Impression - 1. Gallbladder distention without apparent cholelithiasis. 2. Findings which may represent fatty infiltration in the liver versus nonspecific hepatocellular disease, including cirrhotic change. Correlation with appropriate laboratory values and follow-up suggested. 3. Small right renal cyst. Report Dictated on Electronically Signed By: Alirio Gamboa MD Electronically Signed Date/Time: 02/13/2024 11:02 PM EDT Assessment/Plan Principal Problem: Right arm numbness Active Problems: Hyponatremia Persistent depressive disorder DELORES (obstructive sleep apnea) Poor compliance with medication Permanent atrial fibrillation (HCC) Essential hypertension HFrEF (heart failure with reduced ejection fraction) (HCC) Right arm pain and numbness - CVA vs MSK CT head nl MRI head - will need to deactivate pacer through cardio Will need to remove ankle brace - contact [facility] Foreign body in shoulder is ok per domestic technician No focal signs for CVA. Very low NIH score Would mostly benefit from shoulder tx like steroid injection or PT Elevated INR In setting of otherwise nl LFTs and no warfarin use Have ex- bring in meds to check Vitamin K per GI GI consult appreciated Ultrasound- done HFrEF- stable Cont GDMT Etoh abuse - last use unsure CIWA Thiamine, folate Afib- rate controlled Hold doac due to high INR Prolonged QT Holding ssri Dispo- MRI if able , neuro consult, monitor INR after vitamin K Images from the original note were not included. PHYSICAL THERAPY [facility] Initial Evaluation Name/MRN: Krystina Markham ([id number]) Evaluation Date: 02/14/2024 Date of : 1955 Admission Date: 02/13/2024 5:37 PM Age: 68 y.o. Room/Bed: B2-252/B2-252 B Discharge Recommendation: Outpatient PT Equipment Needed: No Assessment IMPRESSION: Pt admitted 02/12 with R shoulder pain, weakness and numbness. Pt with history of ETOH abuse and on CIWA protocol. CT head negative for acute infarct and xray of cervical spine negative for fracture. Pt found to have elevated INR and cleared by MD and RN for therapy on R shoulder. On evaluation patient demos limited ROM and strength in R shoulder and swelling anteriorly. Pt with numbness in RUE above elbow with decreased pack changer strength. Pain worsened with cervical extension with diagnosis most likely impingement in cervical spine. OT to address ADLs and strength during admission. Recommend Outpatient PT when discharged. Prognosis: good Performance Deficits /Impairments: N/A Decision Making: Medium Complexity Subjective Pt lying in bed and agreeable to therapy. Pain: 0-10 pain scale: 7/10 Location: R shoulder Past Medical History: Past Medical History: Diagnosis Date Alcohol consumption heavy 09/10/2015 Asthma Atrial fibrillation ([facility]) CHF (congestive heart failure) ([facility]) 01/31/2016 COPD (chronic obstructive pulmonary disease) ([facility]) 09/10/2015 Cor, pulmonale, acute (CMS/HCC) ([facility]) Deep venous thrombosis ([facility]) 02/2016 Depression Hx of blood clots Obesity 09/10/2015 DELORES (obstructive sleep apnea) Pulmonary embolus ([facility]) 6 16 Raynaud phenomenon 09/10/2015 Smoker 09/10/2015 Past Surgical History: Past Surgical History: Procedure Laterality Date ABDOMINAL SURGERY BRONCHOSCOPY 02/25/2020 BRONCHOSCOPY (HISTORICAL) 02/25/2020 COLONOSCOPY 10/27/[address] CHEST ANGIOGRAM W AND/OR WO IV CONTRAST 07/12/2022 CT CHEST ANGIOGRAM W AND/OR WO IV CONTRAST 07/12/2022 [facility] CT IMAGING FINGER AMPUTATION Left HERNIA REPAIR NOSE SURGERY Admission Diagnosis: Patient Active Problem List Diagnosis Date Noted Right arm numbness 02/13/2024 Persistent depressive disorder 02/13/2024 DELORES (obstructive sleep apnea) 02/13/2024 Poor compliance with medication 02/13/2024 On continuous oral anticoagulation 11/21/2023 Medical non-compliance 11/12/2023 Anemia in other chronic diseases classified elsewhere 01/01/2023 Closed fracture of neck of left humerus with routine healing 12/31/2022 Hyponatremia 12/29/2022 COPD exacerbation ([facility]) 09/13/2022 Alcohol abuse 07/28/2022 Presence of implantable cardioverter-defibrillator (ICD) 07/19/2022 Chest pain, unspecified type 07/17/2022 Hypochloremia 07/17/2022 Tobacco abuse 07/17/2022 HFrEF (heart failure with reduced ejection fraction) ([facility]) 07/17/2022 Permanent atrial fibrillation (HCC) 08/25/2021 History of rib fracture 08/25/2021 Chronic hyponatremia 08/25/2021 Essential hypertension 08/25/2021 COPD (chronic obstructive pulmonary disease) (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) 04/10/2017 Cor, pulmonale, acute ([facility]) ([facility]) 02/01/2016 Raynaud phenomenon 09/10/2015 Medical Precautions: No active isolations Proper PPE donned/doffed in accordance with facility standards. Fall Risk: Landin Fall Risk Score: 35 (Medium Risk) Precautions/Restrictions: N/A Family/Caregiver Present: none Overall Cognitive Status: WNL Overall Orientation Status: Oriented x4 Vision: no visual deficits Hearing: normal Social/Functional History Patient admitted from home. Lives With: Spouse Type of Home: single family home Home Layout: Multi-Level Home Home Access: Stairs to Enter with Rails (# of stairs: 3) Bathroom Shower/Tub: Tub/Shower Combo Toilet: Standard Home Equipment: none Homemaking Responsibilities: Independent Receives Help From: None Active Food Services Director: N/A Prior Level of Function ADL Assistance: Independent Ambulation Assistance: Independent Transfer Assistance: Independent Objective Lower Extremity Assessment AROM: WFL PROM: WFL Strength: WNL RUE AROM limited by pain and weakness Flexion ~20 degrees Abduction ~20 degrees Elbow flexion normal range with pain in lateral elbow while completing Sensation: Decreased sensation C4, C5 Bed Mobility: Supine to sit: Modified Independent Sit to supine: Modified Independent Scooting: Modified Independent Transfers Sit to stand: Independent Stand to sit: Independent Ambulation Ambulation 1 Assistive device(s) used: none Assist level: Independent Distance (ft): ~100'x1 Quality of gait: No gait deviations Exercises Exercises Upper Extremity: shoulder rolls and scapular squeezes 1x10 Shoulder Passive Range of Motion: AAROM flexion and abduction in supine with use of LUE to assist Comments: completed cervical/shoulder exercises for posture and pain relief Other exercises Other exercises?: Yes Other exercises 1: cervical retraction 1x10 in sitting Outcome Measures AM-PAC How much HELP from another person do you currently need Turning from your back to your side while in a flat bed without using bedrails?: None Moving from lying on your back to sitting on the side of a flat bed without using bedrails?: None Moving to and from a bed to a chair (including a wheelchair)?: None Standing up from a chair using your arms (wheelchair or bedside chair)?: None Walking in a hospital room?: None Stair climbing assessed?: No AM-PAC Inpatient Mobility Raw Score (No Stairs) : 20 Plan No skilled acute PT indicated at this time. Please reconsult should changes occur. OT to address RUE deficits. Safety/Education Safety Safety Devices in place: All fall risk precautions in place, call light within reach, and nurse notified Restraints: N/A Education Education Given To: patient Education Provided: PT Role, PT Goals, Plan of Care, and Discharge Recommendations Education Method: Verbal Barriers to Learning: None Education Outcome: Verbalized Understanding Goals Patient Stated Goal: To increase strength in R arm. Therapy Time Individual Co-treatment Time In 0739 Time Out 0759 Minutes 20 Timed Code Treatment Minutes: 9 Minutes (1 TP) Liseth Shaikh PT Patient's Physical Therapy Plan of Care supervision is transferred to a [facility] Physical Therapist. Goals and/or treatment plan was established in collaboration with patient/family/other representatives. Images from the original note were not included. Medical Teaching Service Progress Note Patient: Krystina Markham : 1955 Acct: [id number] PCP: JAMIA SIERRA MD Admitting Physician: Charlie Westfall MD Admission Date: 02/13/2024 Admitting Diagnosis: Right arm numbness [R20.0] Stroke-like symptoms [R29.90] Unit/Bed: B2-252/B2-252 B Hospital Day: 1 Code Status: Full Code Subjective: Overnight events: INR edward to 6.9 Patent was seen in bed, in stable condition, and was cooperative with exam. Patient was accompanied by Dr. Vogt in the room. Patient denied chest pain, shortness of breath, palpitations, fever and chills.. Plan of care was discussed with the patient and they endorsed that they understood the plan for today. Patient had no questions or concerns at the conclusion of the exam. No new complaints. Objective: Vitals: 02/14/24 0104 02/14/24 0258 02/14/24 0325 02/14/24 0804 BP: 126/78 144/80 144/80 136/86 BP Location: Left arm Left arm Left arm Right arm Patient Position: Sitting Sitting Sitting Pulse: 86 63 63 64 Resp: 17 18 18 18 Temp: 36.7 C (98 F) 36.7 C (98.1 F) 36.4 C (97.5 F) TempSrc: Temporal Temporal Temporal SpO2: 94% 92% 92% 91% Weight: 185 lb 3 oz (84 kg) Height: 5' 9" (1.753 m) Temp (24hrs), Av.3 C (97.4 F), Min:35.7 C (96.3 F), Max:36.7 C (98.1 F) Intake/Output Summary (Last 24 hours) at 02/14/2024 1705 Last data filed at 02/14/2024 1514 Gross per 24 hour Intake 750 ml Output -- Net 750 ml Physical Exam Constitutional: Appearance: He is overweight. He is not ill-appearing or toxic-appearing. HENT: Head: Atraumatic. Cardiovascular: Rate and Rhythm: Normal rate. Rhythm irregular. Heart sounds: No murmur heard. Abdominal: General: Abdomen is protuberant. There is no distension. Palpations: There is no mass. Tenderness: There is no abdominal tenderness. There is no guarding. Musculoskeletal: Cervical back: Neck supple. Right lower leg: No edema. Left lower leg: No edema. Neurological: Mental Status: He is alert. GCS: GCS eye subscore is 4. GCS verbal subscore is 5. GCS motor subscore is 5. Cranial Nerves: Cranial nerves 2-12 are intact. Motor: Motor function is intact. Comments: aox2 Psychiatric: Attention and Perception: Attention normal. Mood and Affect: Mood normal. Speech: Speech is slurred. Behavior: Behavior is cooperative. Cognition and Memory: Cognition is impaired. Memory is impaired. Polanco: No Drains: No Central Line/Port: No Intubated: No Diet: Adult diet Regular Medications: [Held by provider] apixaban, 5 mg, Oral, BID folic acid, 1,000 mcg, Oral, q AM losartan, 25 mg, Oral, Daily metoprolol succinate XL, 100 mg, Oral, BID mometasone-formoterol, 2 puff, Inhalation, BID montelukast, 10 mg, Oral, qPM nicotine, 1 patch, TransDERmal, Daily phytonadione, 10 mg, Oral, Daily rosuvastatin, 40 mg, Oral, Nightly [Held by provider] sertraline, 100 mg, Oral, q AM spironolactone, 25 mg, Oral, Nightly therapeutic multivitamin-minerals, 1 tablet, Oral, Daily thiamine, 100 mg, Oral, Daily torsemide, 20 mg, Oral, BID Continuous Infusions: PRN Meds: PRN medications: acetaminophen OR acetaminophen, ipratropium-albuterol, labetalol, LORazepam OR LORazepam OR LORazepam OR LORazepam OR LORazepam OR LORazepam OR LORazepam OR LORazepam, polyethylene glycol (PEG) 3350, sodium chloride 0.9% Labs: CBC: Results from last 7 days Lab Units 02/14/24 0604 02/13/24 1840 WBC AUTO 10*3/uL 10.2 10.1 HEMOGLOBIN g/dL 13.0 12.8* HEMATOCRIT % 37.6* 37.0* PLATELETS AUTO 10*3/uL 311 299 NEUTROS PCT AUTO % -- 78.9 LYMPHS PCT AUTO % -- 10.6* MONOS PCT AUTO % -- 7.3 EOS PCT AUTO % -- 2.0 BMP: Results from last 7 days Lab Units 02/14/24 0604 02/13/24 1840 SODIUM mmol/L 135 133* POTASSIUM mmol/L 4.0 4.0 CHLORIDE mmol/L 98 97* CO2 mmol/L 26 23 BUN mg/dL 7* 6* CREATININE mg/dL 0.59* 0.57* GLUCOSE mg/dL 105* 99 CALCIUM mg/dL 9.7 9.8 LIVER PROFILE: Results from last 7 days Lab Units 02/14/24 0604 02/13/24 1840 ALK PHOS U/L 104 119 BILIRUBIN TOTAL mg/dL 0.6 0.6 PROTEIN TOTAL g/dL 7.3 7.6 ALT U/L 16 16 AST U/L 39 32 PT/INR: Results from last 7 days Lab Units 02/14/24 0604 02/13/242017 APTT s -- 58.1* INR 6.9* 5.4* CARDIAC ENZYMES: Results from last 7 days Lab Units 02/14/248 02/13/24 2224 02/13/24 184 TROPONIN I ng/mL 0.025 0.026 0.023 Procalcitonin: No results found for: "PROCAL" Glucose: Results from last 7 days Lab Units 02/13/244 02/13/24 184 POCT GLUCOSE mg/dL 110 110* ASSESSMENT/PLAN: Patient Active Problem List Diagnosis Date Noted Right arm numbness 02/13/2024 Persistent depressive disorder 02/13/2024 DELORES (obstructive sleep apnea) 02/13/2024 Poor compliance with medication 02/13/2024 On continuous oral anticoagulation 11/21/2023 Medical non-compliance 11/12/2023 Anemia in other chronic diseases classified elsewhere 01/01/2023 Closed fracture of neck of left humerus with routine healing 12/31/2022 Hyponatremia 12/29/2022 COPD exacerbation (HCC) 09/13/2022 Alcohol abuse 07/28/2022 Presence of implantable cardioverter-defibrillator (ICD) 07/19/2022 Chest pain, unspecified type 07/17/2022 Hypochloremia 07/17/2022 Tobacco abuse 07/17/2022 HFrEF (heart failure with reduced ejection fraction) ([facility]) 07/17/2022 Permanent atrial fibrillation ([facility]) 08/25/2021 History of rib fracture 08/25/2021 Chronic hyponatremia 08/25/2021 Essential hypertension 08/25/2021 COPD (chronic obstructive pulmonary disease) (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 Right shoulder pain and numbness 2/2 Stroke rule out vs MSK -Rosuvastatin Stroke rule out order set: -MRI Brain - MR Cervical spine -Per MRI, Shoulder BB is fine, may show artifact -Monitor may need to be removed: [employer] is who put it on. Case officer states to cut it off at time of MRI and return to her at discharge -May be delayed due to approval from cardio to deactivate pacer -A1c - Lipid panel -Neurology consult -PT/OT -CM/SW -CBC/BMP daily HFrEF with biventricular pacer implantation in 2019 TTE 11/2023 EF: 21% Severe global hypokinesis present. Mild to moderate right-sided systolic dysfunction. ICD check last performed on 10/02/2023: normal device fxn, afib ; elevated BNP 5,900 - home torsemide 20mg BID PO - home spironolactone 25mg daily - Losartan 25 mg daily - Metoprolol succinate 100 mg twice daily Permanent A-fib with pacer -Continue home medications -Hold Eliquis 5 mg twice daily, has not been taking since December due to cost. 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 Mg 1.6(r) with 4g magnesium sulfate, Ca wnl B12 wnl RUQ US: - monitor Na - folic acid, thiamine -Mg (r) 4g mgso4 - multivitamin -Folate level - ETOH and Ethyl gluconride - MAT - CIWA and PRN ativan if CIWA >8 Coagulopathy INR elevated 5.4>6.9 Nurse note states he took warfarin in 2021, denies. Denies use and rat poison exposure. -Suspected liver dysfunction vs less likely warfarin intake Obstructive sleep apnea -AutoPap Depression -Hold Zoloft 100 mg daily Concern for dementia Not oriented to time at admission Hx of poor medical compliance FEN/GI/DVT IVF: None Electrolytes: Monitor and replace per protocols Diet: Cardiac GI PPX: No DVT Prophylaxis: SCDs Telemetry: Currently on Telemetry / Reason: Afib DISPOSITION: Imaging for stroke R/O Speech-Language Pathology Patient passed the Nursing Swallowing Screening and is on a Regular diet, Cardiac: Low fat, Low cholesterol. High Fiber, MELANIE with Thin liquids. Completed speech orders as per stroke protocol. [facility] Respiratory Care Department Progress Note Comment or reasoning for refusal: Patient was seen in attempts to fulfill CPAP/BiPAP/AutoPAP order. Patient refused PAP therapy/study at this time. Patient was educated on medical need and reasoning for physician order to ensure patient was making an informed medical decision. All of the patient's questions were answered at this time and patient was informed that if the patient changes their mind regarding wearing PAP to hit their "call light" or inform their nurse to contact Respiratory. A second, consecutive night of refusing PAP therapy/study results in order completion in the EMR. If future CPAP/BiPAP/AutoPAP therapy or study is indicated please place another order in the EMR and the assigned Respiratory Therapist will reattempt to fulfill orders. Reason for refusal: patient says he has "enough stuff on him already" pap at bedside should Pt. Need it. Thank you for involving Respiratory in the care of this patient, Images from the original note were not included. Medical Teaching Service Overnight Summary [facility] ED [address] [facility] [address] Dept: [phone] Loc: [phone] Patient: Krystina Markham : 1955 Acct: [id number] PCP: JAMIA SIERRA MD Admitting Physician: Charlie Westfall MD Admission Date: 02/13/2024 Admitting Diagnosis: Right arm numbness [R20.0] Unit/Bed: 08/13 Hospital Day: 0 Code Status: Full Code Pt was monitored throughout the night with bedside rounding. Acute events addressed overnight: none Physical exam notable for: Visit Vitals BP (!) 139/115 Pulse 86 Temp 36.2 C (97.1 F) (Oral) Resp 16 Wt 184 lb (83.5 kg) SpO2 94% BMI 27.17 kg/m Smoking Status Every Day BSA 2.02 m Issues requiring daytime follow-up: -follow up GI recs. Had Maddrey score 237 and MELD score 30 (52% estimated 3 mo mortality). Rec to place AFP lab d/t this score. -Per neuro recs - likely MSK etiology and recommended C-spine MRI. Has ankle monitor and foreign body in R arm. Discuss with rads if able to have MRI. -follow up ETG and MAT panel. Consider ADM if agreeable -D/w CM/SW pill pack d/t his dementia. Currently lives with ex- but that may not be an option upon discharge. Discuss housing options. Any notable events can be found as significant event notes if needed. Pt handoff was made to day-team with pertinent information for pt's case and care. Electronically signed by Lorena Rock MD 10:32 PM 02/13/24 documented in this encounter [facility] 02-17-2024 Note Formatting of this n ote might be different from the original. Care Managment Initial Assessment Date: 02/17/2024 Patient Name: Krystina Markham : 1955 Patient Information Source of Information: (medical record) Cognition/Language: Permission given to speak with patient outbound call center representative/caregiver as indicated: Confirmation of Payer with patient/family: Payer Name: [facility] [place]: Confirmation of Primary Care Physician: Confirmed PCP Name: Sheron Primary Caregiver: Self If assistance needed, confirmed caregiver ready, willing and able to care for patient at discharge: Confirmed with: Living Arrangements Current Residence: Apartment Number of Floors 1 Number of Entry Steps: 2 Bed/Bath Levels: Both first floor Facility: [facility] Facility Name: [facility] Plan to Return: Yes Lives with: Other (Comment) Support Systems: Organized support group (Comment) Activities of Daily Living Ambulation: Independent Bathing/Dressing: Independent Elimination/Continence/Toileting: Independent Feeding: Independent Who Assists with Activities of Daily Living: Instrumental Activities of Daily Living Prescription Coverage: Yes Pharmacy Used: [facility] [place] Medication Management: Independent Transportation/Shopping: Assistance Provider Transportation/Shopping Assistance Provider Name: [facility] Transportation Mode: Needs Assistance with Transportation at Discharge: No Meal Preparation: Laundry/Cleaning: Finances/Bill Paying: Communication: Types of Care Services/Equipment Utilized Care Services: Dialysis Type: Durable Medical Equipment: Cane, Walker, Nebulizer Patient's Goal/Discharge Plan Patient expects to be discharged to: [facility] Discharge Planning Actions: No needs identified Patient's Choice Rights and [employer] and Collaborative Relationships Disclosed as Indicated for Post-Acute Care: Interdisciplinary Team Engagement: Social Work Referral for: Additional Information: Pt has discharge order. IA completed from prior admission in October. Pt to return to [facility] with ankle bracelet. No discharge needs identified. Catrachita Nelson RN [facility] 02-17-2024 Note Formatting of this n ote might be different from the original. Care Managment Initial Assessment Date: 02/17/2024 Patient Name: Krystina Markham : 1955 Patient Information Source of Information: (medical record) Cognition/Language: Permission given to speak with patient outbound call center representative/caregiver as indicated: Confirmation of Payer with patient/family: Payer Name: [facility] : Confirmation of Primary Care Physician: Confirmed PCP Name: Sheron Primary Caregiver: Self If assistance needed, confirmed caregiver ready, willing and able to care for patient at discharge: Confirmed with: Living Arrangements Current Residence: Apartment Number of Floors 1 Number of Entry Steps: 2 Bed/Bath Levels: Both first floor Facility: [facility] Facility Name: [facility] Plan to Return: Yes Lives with: Other (Comment) Support Systems: Organized support group (Comment) Activities of Daily Living Ambulation: Independent Bathing/Dressing: Independent Elimination/Continence/Toileting: Independent Feeding: Independent Who Assists with Activities of Daily Living: Instrumental Activities of Daily Living Prescription Coverage: Yes [facility]acy Used: [facility] [place] Medication Management: Independent Transportation/Shopping: Assistance Provider Transportation/Shopping Assistance Provider Name: [facility] Transportation Mode: Needs Assistance with Transportation at Discharge: No Meal Preparation: Laundry/Cleaning: Finances/Bill Paying: Communication: Types of Care Services/Equipment Utilized Care Services: Dialysis Type: Durable Medical Equipment: Cane, Walker, Nebulizer Patient's Goal/Discharge Plan Patient expects to be discharged to: [facility] Discharge Planning Actions: No needs identified Patient's Choice Rights and [employer] and Collaborative Relationships Disclosed as Indicated for Post-Acute Care: Interdisciplinary Team Engagement: Social Work Referral for: Additional Information: Pt has discharge order. IA completed from prior admission in October. Pt to return to [facility] with ankle bracelet. No discharge needs identified. Catrachita Nelson RN [facility] 02-17-2024 Miscellaneous Notes Care Managment Initial Assessment Date: 02/17/2024 Patient Name: Krystina Markham : 1955 Patient Information Source of Information: (medical record) Cognition/Language: Permission given to speak with patient outbound call center representative/caregiver as indicated: Confirmation of Payer with patient/family: Payer Name: [facility] : Confirmation of Primary Care Physician: Confirmed PCP Name: Sheron Primary Caregiver: Self If assistance needed, confirmed caregiver ready, willing and able to care for patient at discharge: Confirmed with: Living Arrangements Current Residence: Apartment Number of Floors 1 Number of Entry Steps: 2 Bed/Bath Levels: Both first floor Facility: [facility] Facility Name: [facility] Plan to Return: Yes Lives with: Other (Comment) Support Systems: Organized support group (Comment) Activities of Daily Living Ambulation: Independent Bathing/Dressing: Independent Elimination/Continence/Toileting: Independent Feeding: Independent Who Assists with Activities of Daily Living: Instrumental Activities of Daily Living Prescription Coverage: Yes [facility]acy Used: [facility] Medication Management: Independent Transportation/Shopping: Assistance Provider Transportation/Shopping Assistance Provider Name: [facility] Transportation Mode: Needs Assistance with Transportation at Discharge: No Meal Preparation: Laundry/Cleaning: Finances/Bill Paying: Communication: Types of Care Services/Equipment Utilized Care Services: Dialysis Type: Durable Medical Equipment: Cane, Walker, Nebulizer Patient's Goal/Discharge Plan Patient expects to be discharged to: [facility] Discharge Planning Actions: No needs identified Patient's Choice Rights and [employer] and Collaborative Relationships Disclosed as Indicated for Post-Acute Care: Interdisciplinary Team Engagement: Social Work Referral for: Additional Information: Pt has discharge order. IA completed from prior admission in October. Pt to return to [facility] with ankle bracelet. No discharge needs identified. Catrachita Nelson RN documented in this encounter [facility] 02-17-2024 Telephone encounter Note Form given to OC who completed physician portion and signed. Form was then faxed to [facility] and sent to stat scan 02/14/24 dlm [facility] 02-17-2024 Nurse Note Patient to MRI for scan from in-patient room. MRI placed in MRI safe mode by [facility] at [facility] mode with a rate of 85. See flowsheets for vitals. MRI completed. Placed patient back in pre MRI pacer settings. Patient returned to room with transportation. [facility] 02-17-2024 Nurse Note Patient to MRI for scan from in-patient room. MRI placed in MRI safe mode by [facility] at [facility]OO mode with a rate of 85. See flowsheets for vitals. MRI completed. Placed patient back in pre MRI pacer settings. Patient returned to room with transportation. documented in this encounter [facility] 02-14-2024 Consult note Associated Order (s): Inpatient consult to Neurology--[facility] Inpatient consult to Neurology--[facility] Consult performed by: Charles Polk MD Consult ordered by: Ronnie Avery DO Reason for consult: right shoudler weakness Assessment/Recommendations: # Suspect Right [place] vs Cervical root ( C5, C7, ? C8 T1) # Rotator Cuff Injury with Superimposed arthritic changes in the Rt shoulder and Osteopenia - Less likely to be Stroke - Left Motor Cortex - Agree with getting MRI brain and MRI C - Spine w/o contrast - I added MRI Chest with and without contrast - brachial Plexus - Plan slight sedation and premedication for pain to help with high quality images - He will need EMG and NCS 4-6 weeks since the onset of the symptoms to look for de nervation - Will also get CXR to r/o any obvious lung malignancy given high risk smoker. - He will probably benefit from occult malignancy workup if other tests are unremarkable. - PT , OT - Will continue to follow the imaging results and arrange EMG and NCS outpatient, once discharged. - No need for NIHHS, TTE or stroke protocol unless stroke noted on MRI History Of Present Illness Krystina Markham is a 68 y.o. male presenting with shoulder pain and arm numbness - right Neurology was consulted to rule out stroke. History was taken from the significant other in the room in presence of bedside RN and patient. Patient seems poor historian with poor insight. It seems like he has been having pain since past 2 weeks. Shoulder pain Duration : approximately 2-3 weeks Frequency : constant, progressively worsening Characteristics: Worse with movement, and it's sharp pain, description is difficult to gather Associated symptoms: Tingling in the arm forearm, and little fingers. Progression of Symptoms : tingling started 2 days prior to arrival to the ER. Per history he has bilateral shoulder injuries and was recommended PT, however patient was non compliant. However he denies significant weakness on the left arm. His weakness is inappropriate for the amount of pain he is experiencing. Per RN he took Tylenol in the afternoon and got percocet in the ER Other Rx - Received Magnesium 4gm , VitK for elevated INR Past Medical History He has a past medical history of Alcohol consumption heavy (09/10/2015), Asthma, Atrial fibrillation ([facility]), CHF (congestive heart failure) ([facility]) (01/31/2016), COPD (chronic obstructive pulmonary disease) ([facility]) (09/10/2015), Cor, pulmonale, acute (CMS/HCC) ([facility]), Deep venous thrombosis ([facility]) (02/2016), Depression, blood clots, Obesity (09/10/2015), DELORES (obstructive sleep apnea), Pulmonary embolus ([facility]), Raynaud phenomenon (09/10/2015), and Smoker (09/10/2015). Surgical History He has a past surgical history that includes Hernia repair; Bronchoscopy (02/25/2020); Nose surgery; Colonoscopy (10/27/2019); Finger amputation (Left); Abdominal surgery; CTA chest angiogram w and/or wo IV contrast (07/12/2022); and bronchoscopy (historical) (02/25/2020). Social History He reports that he has been smoking cigarettes. He started smoking about 51 years ago. He has a 10 pack-year smoking history. He has never used smokeless tobacco. He reports current alcohol use of about 7.0 standard drinks of alcohol per week. He reports that he does not use drugs. Allergies Patient has no known allergies. Medications Medications Prior to Admission Medication Sig Dispense Refill Last Dose albuterol (2.5 MG/3ML) 0.083% nebulizer solution TAKE 3 MLS VIA NEBULIZATION ONCE NEEDED FOR WHEEZING OR SHORTNESS OF BREATH FOR UP TO 75 DOSES 75 mL 2 Past Month [facility] B-1 100 MG tablet TAKE 1 TABLET BY MOUTH EVERY DAY 90 tablet 1 Past Month losartan (Cozaar) 25 MG tablet Take 1 tablet (25 mg) by mouth daily. 30 tablet 11 02/12/2024 metoprolol succinate XL (Toprol-XL) 100 MG 24 hr tablet TAKE 1 TABLET (100 MG) BY MOUTH IN THE MORNING AND 1 TABLET (100 MG) BEFORE BEDTIME. DO NOT CRUSH OR CHEW.. 180 tablet 0 Past Week montelukast (Singulair) 10 MG tablet TAKE 1 TABLET BY MOUTH EVERY DAY IN THE EVENING 90 tablet 0 02/12/2024 Multiple Vitamins-Minerals (Therapeutic-M/Lutein) tablet TAKE 1 TABLET BY MOUTH IN THE MORNING, 1 TABLET AT NOON, AND 1 TABLET BEFORE BEDTIME 90 tablet 11 Past Week rosuvastatin (Crestor) 40 MG tablet TAKE 1 TABLET BY MOUTH EVERY DAY NIGHTLY 90 tablet 3 02/12/2024 sertraline (Zoloft) 100 MG tablet TAKE 1 TABLET (100 MG) BY MOUTH EVERY MORNING 90 tablet 0 02/12/2024 tiotropium (Spiriva Respimat) 1.25 MCG/ACT inhaler Inhale 2 puffs daily. 4 g 1 Past Month torsemide (Demadex) 20 MG tablet TAKE 1 TABLET BY MOUTH TWICE A DAY 60 tablet 0 Past Month Eliquis 5 MG tablet Take 1 tablet (5 mg) by mouth 2 times daily. (Patient not taking: Reported on 02/13/2024) 60 tablet 2 More than a month folic acid (Folvite) 1 MG tablet TAKE 1 TABLET BY MOUTH ONCE DAILY IN THE MORNING 90 tablet 3 ipratropium-albuterol (Duo-Neb) 0.5-2.5 mg/3 mL nebulizer solution Take 3 mL by nebulization 2 times daily as needed for wheezing or shortness of breath. 1080 mL 0 spironolactone (Aldactone) 25 MG tablet Take 1 tablet (25 mg) by mouth Nightly. (Patient not taking: Reported on 02/13/2024) 90 tablet 1 More than a month Review of Systems Constitutional: Positive for unexpected weight change. Musculoskeletal: Positive for arthralgias, joint swelling and myalgias. Neurological: Positive for numbness. Psychiatric/Behavioral: Positive for decreased concentration. Neurological Exam Mental Status Awake and alert. Oriented only to person, place and time. Mild dysarthria present. Mild slur noted, secondary to poor attention and pain. Able to name objects, name parts of objects and repeat. Follows complex commands. Apraxia absent. Cranial Nerves CN II: Right visual acuity: Counts fingers. Left visual acuity: Counts fingers. CN III, IV, : Extraocular movements intact bilaterally. Normal lids and orbits bilaterally. Pupils equal round and reactive to light bilaterally. CN V: Right: Normal corneal reflex. Left: Normal corneal reflex. CN VII: Right: There is no facial weakness. Left: There is no facial weakness. CN VIII: Right: Hearing is normal. Left: Hearing is normal. CN IX, X: Palate elevates symmetrically Unable to complete other exam in details from poor cooperation with pain. Motor Decreased muscle bulk throughout. No fasciculations present. Unable to assess, pain and poor cooperation. Right Left Shoulder abduction 2 4- Shoulder adduction 1 4- Elbow flexion 3+ 4+ Elbow extension 3+ 4+ Wrist flexion 3+ 4+ Wrist extension 3- 4- Pronation 3+ Finger extension 3+ Finger abduction 3- 4- Thumb abduction 2 4- Sensory Poor reliability no dermatomal distribution noted. Reflexes Right Left Brachioradialis 0 2+ Biceps 2+ 1+ Finger flex 0 1+ Patellar Tr Tr Achilles 0 0 Right Plantar: downgoing Left Plantar: downgoing Coordination Unable to complete exam in details from poor cooperation with pain . Gait Unable to complete exam in details from poor cooperation with pain . Physical Exam Constitutional: General: He is awake. HENT: Right Ear: Hearing normal. Left Ear: Hearing normal. Eyes: General: Lids are normal. Extraocular Movements: Extraocular movements intact. Pupils: Pupils are equal, round, and reactive to light. Neurological: Mental Status: He is alert. Cranial Nerves: Dysarthria present. Deep Tendon Reflexes: Reflex Scores: Bicep reflexes are 2+ on the right side and 1+ on the left side. Brachioradialis reflexes are 0 on the right side and 2+ on the left side. Achilles reflexes are 0 on the right side and 0 on the left side. Psychiatric: Attention and Perception: He is inattentive. Mood and Affect: Mood is anxious. Affect is labile. Speech: Speech is slurred. Behavior: Behavior normal. Behavior is cooperative. Thought Content: Thought content normal. Cognition and Memory: Cognition is impaired. Memory is impaired. Judgment: Judgment is impulsive and inappropriate. Last Recorded Vitals Vitals: 02/14/24 0325 02/14/24 0804 02/14/24 2025 02/14/24 2106 BP: 144/80 136/86 106/61 BP Location: Left arm Right arm Right arm Patient Position: Sitting Sitting Lying Pulse: 63 64 79 76 Resp: 18 18 20 18 Temp: 36.7 C (98.1 F) 36.4 C (97.5 F) 36.7 C (98 F) TempSrc: Temporal Temporal Temporal SpO2: 92% 91% 92% 94% Weight: 185 lb 3 oz (84 kg) Height: 5' 9" (1.753 m) Relevant Results Lab Results Component Value Date WBC 10.2 02/14/2024 HGB 13.0 02/14/2024 HCT 37.6 (L) 02/14/2024 MCV 90.4 02/14/2024 PLT 311 02/14/2024 Lab Results Component Value Date GLUCOSE 105 (H) 02/14/2024 CALCIUM 9.7 02/14/2024 NA 135 02/14/2024 K 4.0 02/14/2024 CO2 26 02/14/2024 CL 98 02/14/2024 BUN 7 (L) 02/14/2024 CREATININE 0.59 (L) 02/14/2024 MAGNESIUM Date Value Ref Range Status 02/14/2024 1.6 1.6 - 2.3 mg/dL Final 01/01/2023 1.9 1.6 - 2.3 mg/dL Final 12/30/2022 2.0 1.6 - 2.3 mg/dL Final 12/30/2022 2.1 1.6 - 2.3 mg/dL Final VITAMIN B12 Date Value Ref Range Status 12/30/2022 >1,000 (H) 239 - 931 pg/mL Final 10/05/2019 558 239 - 931 pg/mL Final FOLATE RESULT Date Value Ref Range Status 02/14/2024 >20.0 >=2.9 ng/mL Final ETHANOL IN SER/PLAS Date Value Ref Range Status 02/13/2024 <0.010 0.000 - 0.010 g/dL Final Comment: This sample may have been collected by using an alcohol pad to swab the skin. Ethanol-containing antiseptics before venipuncture may not be causes of spurious or false positive results of alcohol measurement at least when ideal venipunctures can be performed. However, under non-ideal collection conditions, alcohol contamination is a possibility. Results to be correlated clinically. 11/11/2023 <0.010 0.000 - 0.010 g/dL Final Comment: This sample may have been collected by using an alcohol pad to swab the skin. Ethanol-containing antiseptics before venipuncture may not be causes of spurious or false positive results of alcohol measurement at least when ideal venipunctures can be performed. However, under non-ideal collection conditions, alcohol contamination is a possibility. Results to be correlated clinically. 12/29/2022 <0.010 0.000 - 0.010 g/dL Final 07/16/2022 <0.010 0.000 - 0.010 g/dL Final 08/23/2021 <0.010 0.000 - 0.010 g/dL Final Comment: NOTE: This result is for medical treatment only. Analysis performed using non-forensic procedures. Lab Results Component Value Date INR 6.9 (HH) 02/14/2024 INR 5.4 (HH) 02/13/2024 INR 1.1 01/01/2023 PROTIME 63.4 (H) 02/14/2024 PROTIME 50.8 (H) 02/13/2024 PROTIME 12.2 (H) 01/01/2023 Lab Results Component Value Date HGBA1C 5.9 (H) 02/14/2024 Lab Results Component Value Date LDLCALC 33 02/14/2024 Lab Results Component Value Date ALT 16 02/14/2024 AST 39 02/14/2024 ALKPHOS 104 02/14/2024 BILITOT 0.6 02/14/2024 Lab Results Component Value Date [id number] >1,000 (H) 12/30/2022 Lab Results Component Value Date TSH 2.568 07/16/2022 Lab Results Component Value Date FOLATE >20.0 02/14/2024 Lab Results Component Value Date CKTOTAL 223 (H) 12/30/2022 TROPONINI 0.025 02/14/2024 CT head wo IV contrast Result Date: 02/13/2024 Patient Name: KRYSTINA MARKHAM : 1955 Exam Date/Time: 02/13/2024 18:20 Procedure: CT HEAD WO IV CONTRAST Ordering Provider: AVERY JOSEPH Reason For Exam: Neuro deficit, acute, stroke suspected EXAMINATION: CT HEAD WO IV CONTRAST HISTORY: Neuro deficit, acute, stroke suspected. Numbness of the right hand. TECHNIQUE: CT head without contrast. Dose reduction was employed with automated exposure control. COMPARISON: Head CT 12/29/2022 RESULT: Acute change: No evidence of an acute intracranial process. Hemorrhage: No evidence of acute intracranial hemorrhage. Mass Lesion / Mass Effect: No evidence of an intracranial mass, extra-axial fluid collection, or significant localized mass effect. Mild prominence of CSF attenuation at the right frontal convexity is similar to prior exam and likely due to volume loss. Chronic change: Scattered patchy foci of low attenuation are present within supratentorial white matter which is a nonspecific finding but likely represents mild microvascular ischemia. Atherosclerotic calcifications of the carotid siphons and vertebral arteries. Parenchyma: There is mild generalized volume loss. Ventricles: Normal caliber and morphology. Other: The calvarium, skull base, imaged paranasal sinuses, mastoids, orbits and extracranial soft tissues are unremarkable. No CT evidence of an acute intracranial abnormality. Report Dictated on Electronically Signed By: Guillermo Boone MD Electronically Signed Date/Time: 02/13/2024 6:46 PM EDT XR CERVICAL SPINE 2-3 VIEWS - Impression - 1. No acute osseous abnormality, with limited visualization of cervicothoracic junction. 2. Mild degenerative change. Electronically Signed By: Alirio Gamboa MD. Electronically Signed Date/Time: 02/13/2024 10:05 PM EDT 3 views of the right shoulder: Diffuse osteopenia. No acute fracture or dislocation.Degenerative change in the glenohumeral and AC joints. Subchondral cystic change underlying the humeral head greater tuberosity.Metallic BB density projects in the posterior soft tissues. Remainder of soft tissues grossly unremarkable. Electronically Signed By: Alirio Gamboa MD. Electronically Signed Date/Time: 02/13/2024 6:38 PM EDT 3 views left shoulder: Osteopenia. Proximal humeral surgical neck fracture. This is mildly impacted and displaced. The distal fracture fragment is displaced posteriorly 0.9 cm. Mild impaction more anteriorly. There is minimal apex dorsal angulation. Small fracture fragments are seen posterior to the shoulder. There is inferior humeral pseudosubluxation consistent with joint effusion, hemarthrosis. No gross evidence of glenoid fracture.There is [id number] acromioclavicular and mild glenohumeral osteoarthropathy.Left-sided pacemaker, leads incompletely evaluated.There is left-sided remote clavicle fracture deformity more centrally. Suspected healed left-sided rib fractures. Electronically Signed By: Tristen Snider Electronically Signed Date/Time: 12/29/2022 3:30 PM EDT CXR Left-sided cardiac device again noted and mild cardiomegaly, stable.Lungs are hyperinflated. No significant vascular congestion.No focal consolidation or apparent pneumothorax. Bilateral rotator cuff insufficiency and multiple, old right rib fracture deformities again noted. Electronically Signed By: Alirio Gamboa. Electronically Signed Date/Time: 09/12/2022 9:40 PM EST Assessment/Plan Active Problems: Hyponatremia Persistent depressive disorder DELORES (obstructive sleep apnea) Poor compliance with medication Permanent atrial fibrillation (HCC) Essential hypertension HFrEF (heart failure with reduced ejection fraction) (HCC) Above to be managed by primary team [facility] 02-14-2024 Consult note Associated Order (s): Inpatient consult to Neurology--[facility] Inpatient consult to Neurology--[facility] Consult performed by: Charles Polk MD Consult ordered by: Ronnie Avery, Reason for consult: right shoudler weakness Assessment/Recommendations: # Suspect Right [place] vs Cervical root ( C5, C7, ? C8 T1) # Rotator Cuff Injury with Superimposed arthritic changes in the Rt shoulder and Osteopenia - Less likely to be Stroke - Left Motor Cortex - Agree with getting MRI brain and MRI C - Spine w/o contrast - I added MRI Chest with and without contrast - brachial Plexus - Plan slight sedation and premedication for pain to help with high quality images - He will need EMG and NCS 4-6 weeks since the onset of the symptoms to look for de nervation - Will also get CXR to r/o any obvious lung malignancy given high risk smoker. - He will probably benefit from occult malignancy workup if other tests are unremarkable. - PT , OT - Will continue to follow the imaging results and arrange EMG and NCS outpatient, once discharged. - No need for NIHHS, TTE or stroke protocol unless stroke noted on MRI History Of Present Illness Krystina Markham is a 68 y.o. male presenting with shoulder pain and arm numbness - right Neurology was consulted to rule out stroke. History was taken from the significant other in the room in presence of bedside RN and patient. Patient seems poor historian with poor insight. It seems like he has been having pain since past 2 weeks. Shoulder pain Duration : approximately 2-3 weeks Frequency : constant, progressively worsening Characteristics: Worse with movement, and it's sharp pain, description is difficult to gather Associated symptoms: Tingling in the arm forearm, and little fingers. Progression of Symptoms : tingling started 2 days prior to arrival to the ER. Per history he has bilateral shoulder injuries and was recommended PT, however patient was non compliant. However he denies significant weakness on the left arm. His weakness is inappropriate for the amount of pain he is experiencing. Per RN he took Tylenol in the afternoon and got percocet in the ER Other Rx - Received Magnesium 4gm , VitK for elevated INR Past Medical History He has a past medical history of Alcohol consumption heavy (09/10/2015), Asthma, Atrial fibrillation ([facility]), CHF (congestive heart failure) ([facility]) (01/31/2016), COPD (chronic obstructive pulmonary disease) ([facility]) (09/10/2015), Cor, pulmonale, acute (CMS/HCC) ([facility]), Deep venous thrombosis ([facility]) (02/2016), Depression, blood clots, Obesity (09/10/2015), DELORES (obstructive sleep apnea), Pulmonary embolus ([facility]), Raynaud phenomenon (09/10/2015), and Smoker (09/10/2015). Surgical History He has a past surgical history that includes Hernia repair; Bronchoscopy (02/25/2020); Nose surgery; Colonoscopy (10/27/2019); Finger amputation (Left); Abdominal surgery; CTA chest angiogram w and/or wo IV contrast (07/12/2022); and bronchoscopy (historical) (02/25/2020). Social History He reports that he has been smoking cigarettes. He started smoking about 51 years ago. He has a 10 pack-year smoking history. He has never used smokeless tobacco. He reports current alcohol use of about 7.0 standard drinks of alcohol per week. He reports that he does not use drugs. Allergies Patient has no known allergies. Medications Medications Prior to Admission Medication Sig Dispense Refill Last Dose albuterol (2.5 MG/3ML) 0.083% nebulizer solution TAKE 3 MLS VIA NEBULIZATION ONCE NEEDED FOR WHEEZING OR SHORTNESS OF BREATH FOR UP TO 75 DOSES 75 mL 2 Past Month [facility] B-1 100 MG tablet TAKE 1 TABLET BY MOUTH EVERY DAY 90 tablet 1 Past Month losartan (Cozaar) 25 MG tablet Take 1 tablet (25 mg) by mouth daily. 30 tablet 11 02/12/2024 metoprolol succinate XL (Toprol-XL) 100 MG 24 hr tablet TAKE 1 TABLET (100 MG) BY MOUTH IN THE MORNING AND 1 TABLET (100 MG) BEFORE BEDTIME. DO NOT CRUSH OR CHEW.. 180 tablet 0 Past Week montelukast (Singulair) 10 MG tablet TAKE 1 TABLET BY MOUTH EVERY DAY IN THE EVENING 90 tablet 0 02/12/2024 Multiple Vitamins-Minerals (Therapeutic-M/Lutein) tablet TAKE 1 TABLET BY MOUTH IN THE MORNING, 1 TABLET AT NOON, AND 1 TABLET BEFORE BEDTIME 90 tablet 11 Past Week rosuvastatin (Crestor) 40 MG tablet TAKE 1 TABLET BY MOUTH EVERY DAY NIGHTLY 90 tablet 3 02/12/2024 sertraline (Zoloft) 100 MG tablet TAKE 1 TABLET (100 MG) BY MOUTH EVERY MORNING 90 tablet 0 02/12/2024 tiotropium (Spiriva Respimat) 1.25 MCG/ACT inhaler Inhale 2 puffs daily. 4 g 1 Past Month torsemide (Demadex) 20 MG tablet TAKE 1 TABLET BY MOUTH TWICE A DAY 60 tablet 0 Past Month Eliquis 5 MG tablet Take 1 tablet (5 mg) by mouth 2 times daily. (Patient not taking: Reported on 02/13/2024) 60 tablet 2 More than a month folic acid (Folvite) 1 MG tablet TAKE 1 TABLET BY MOUTH ONCE DAILY IN THE MORNING 90 tablet 3 ipratropium-albuterol (Duo-Neb) 0.5-2.5 mg/3 mL nebulizer solution Take 3 mL by nebulization 2 times daily as needed for wheezing or shortness of breath. 1080 mL 0 spironolactone (Aldactone) 25 MG tablet Take 1 tablet (25 mg) by mouth Nightly. (Patient not taking: Reported on 02/13/2024) 90 tablet 1 More than a month Review of Systems Constitutional: Positive for unexpected weight change. Musculoskeletal: Positive for arthralgias, joint swelling and myalgias. Neurological: Positive for numbness. Psychiatric/Behavioral: Positive for decreased concentration. Neurological Exam Mental Status Awake and alert. Oriented only to person, place and time. Mild dysarthria present. Mild slur noted, secondary to poor attention and pain. Able to name objects, name parts of objects and repeat. Follows complex commands. Apraxia absent. Cranial Nerves CN II: Right visual acuity: Counts fingers. Left visual acuity: Counts fingers. CN III, IV, : Extraocular movements intact bilaterally. Normal lids and orbits bilaterally. Pupils equal round and reactive to light bilaterally. CN V: Right: Normal corneal reflex. Left: Normal corneal reflex. CN VII: Right: There is no facial weakness. Left: There is no facial weakness. CN VIII: Right: Hearing is normal. Left: Hearing is normal. CN IX, X: Palate elevates symmetrically Unable to complete other exam in details from poor cooperation with pain. Motor Decreased muscle bulk throughout. No fasciculations present. Unable to assess, pain and poor cooperation. Right Left Shoulder abduction 2 4- Shoulder adduction 1 4- Elbow flexion 3+ 4+ Elbow extension 3+ 4+ Wrist flexion 3+ 4+ Wrist extension 3- 4- Pronation 3+ Finger extension 3+ Finger abduction 3- 4- Thumb abduction 2 4- Sensory Poor reliability no dermatomal distribution noted. Reflexes Right Left Brachioradialis 0 2+ Biceps 2+ 1+ Finger flex 0 1+ Patellar Tr Tr Achilles 0 0 Right Plantar: downgoing Left Plantar: downgoing Coordination Unable to complete exam in details from poor cooperation with pain . Gait Unable to complete exam in details from poor cooperation with pain . Physical Exam Constitutional: General: He is awake. HENT: Right Ear: Hearing normal. Left Ear: Hearing normal. Eyes: General: Lids are normal. Extraocular Movements: Extraocular movements intact. Pupils: Pupils are equal, round, and reactive to light. Neurological: Mental Status: He is alert. Cranial Nerves: Dysarthria present. Deep Tendon Reflexes: Reflex Scores: Bicep reflexes are 2+ on the right side and 1+ on the left side. Brachioradialis reflexes are 0 on the right side and 2+ on the left side. Achilles reflexes are 0 on the right side and 0 on the left side. Psychiatric: Attention and Perception: He is inattentive. Mood and Affect: Mood is anxious. Affect is labile. Speech: Speech is slurred. Behavior: Behavior normal. Behavior is cooperative. Thought Content: Thought content normal. Cognition and Memory: Cognition is impaired. Memory is impaired. Judgment: Judgment is impulsive and inappropriate. Last Recorded Vitals Vitals: 02/14/24 0325 02/14/24 0804 02/14/24 20202/14/24 2106 BP: 144/80 136/86 106/61 BP Location: Left arm Right arm Right arm Patient Position: Sitting Sitting Lying Pulse: 63 64 79 76 Resp: 18 18 20 18 Temp: 36.7 C (98.1 F) 36.4 C (97.5 F) 36.7 C (98 F) TempSrc: Temporal Temporal Temporal SpO2: 92% 91% 92% 94% Weight: 185 lb 3 oz (84 kg) Height: 5' 9" (1.753 m) Relevant Results Lab Results Component Value Date WBC 10.2 02/14/2024 HGB 13.0 02/14/2024 HCT 37.6 (L) 02/14/2024 MCV 90.4 02/14/2024 PLT 311 02/14/2024 Lab Results Component Value Date GLUCOSE 105 (H) 02/14/2024 CALCIUM 9.7 02/14/2024 NA 135 02/14/2024 K 4.0 02/14/2024 CO2 26 02/14/2024 CL 98 02/14/2024 BUN 7 (L) 02/14/2024 CREATININE 0.59 (L) 02/14/2024 MAGNESIUM Date Value Ref Range Status 02/14/2024 1.6 1.6 - 2.3 mg/dL Final 01/01/2023 1.9 1.6 - 2.3 mg/dL Final 12/30/2022 2.0 1.6 - 2.3 mg/dL Final 12/30/2022 2.1 1.6 - 2.3 mg/dL Final VITAMIN B12 Date Value Ref Range Status 12/30/2022 >1,000 (H) 239 - 931 pg/mL Final 10/05/2019 558 239 - 931 pg/mL Final FOLATE RESULT Date Value Ref Range Status 02/14/2024 >20.0 >=2.9 ng/mL Final ETHANOL IN SER/PLAS Date Value Ref Range Status 02/13/2024 <0.010 0.000 - 0.010 g/dL Final Comment: This sample may have been collected by using an alcohol pad to swab the skin. Ethanol-containing antiseptics before venipuncture may not be causes of spurious or false positive results of alcohol measurement at least when ideal venipunctures can be performed. However, under non-ideal collection conditions, alcohol contamination is a possibility. Results to be correlated clinically. 11/11/2023 <0.010 0.000 - 0.010 g/dL Final Comment: This sample may have been collected by using an alcohol pad to swab the skin. Ethanol-containing antiseptics before venipuncture may not be causes of spurious or false positive results of alcohol measurement at least when ideal venipunctures can be performed. However, under non-ideal collection conditions, alcohol contamination is a possibility. Results to be correlated clinically. 12/29/2022 <0.010 0.000 - 0.010 g/dL Final 07/16/2022 <0.010 0.000 - 0.010 g/dL Final 08/23/2021 <0.010 0.000 - 0.010 g/dL Final Comment: NOTE: This result is for medical treatment only. Analysis performed using non-forensic procedures. Lab Results Component Value Date INR 6.9 (HH) 02/14/2024 INR 5.4 (HH) 02/13/2024 INR 1.1 01/01/2023 PROTIME 63.4 (H) 02/14/2024 PROTIME 50.8 (H) 02/13/2024 PROTIME 12.2 (H) 01/01/2023 Lab Results Component Value Date HGBA1C 5.9 (H) 02/14/2024 Lab Results Component Value Date LDLCALC 33 02/14/2024 Lab Results Component Value Date ALT 16 02/14/2024 AST 39 02/14/2024 ALKPHOS 104 02/14/2024 BILITOT 0.6 02/14/2024 Lab Results Component Value Date [id number] >1,000 (H) 12/30/2022 Lab Results Component Value Date TSH 2.568 07/16/2022 Lab Results Component Value Date FOLATE >20.0 02/14/2024 Lab Results Component Value Date CKTOTAL 223 (H) 12/30/2022 TROPONINI 0.025 02/14/2024 CT head wo IV contrast Result Date: 02/13/2024 Patient Name: KRYSTINA MARKHAM : 1955 [facility]#: [id number] Exam Date/Time: 02/13/2024 18:20 Procedure: CT HEAD WO IV CONTRAST Ordering Provider: AVERY JOSEPH Reason For Exam: Neuro deficit, acute, stroke suspected EXAMINATION: CT HEAD WO IV CONTRAST HISTORY: Neuro deficit, acute, stroke suspected. Numbness of the right hand. TECHNIQUE: CT head without contrast. Dose reduction was employed with automated exposure control. COMPARISON: Head CT 12/29/2022 RESULT: Acute change: No evidence of an acute intracranial process. Hemorrhage: No evidence of acute intracranial hemorrhage. Mass Lesion / Mass Effect: No evidence of an intracranial mass, extra-axial fluid collection, or significant localized mass effect. Mild prominence of CSF attenuation at the right frontal convexity is similar to prior exam and likely due to volume loss. Chronic change: Scattered patchy foci of low attenuation are present within supratentorial white matter which is a nonspecific finding but likely represents mild microvascular ischemia. Atherosclerotic calcifications of the carotid siphons and vertebral arteries. Parenchyma: There is mild generalized volume loss. Ventricles: Normal caliber and morphology. Other: The calvarium, skull base, imaged paranasal sinuses, mastoids, orbits and extracranial soft tissues are unremarkable. No CT evidence of an acute intracranial abnormality. Report Dictated on Electronically Signed By: Guillermo Boone MD Electronically Signed Date/Time: 02/13/2024 6:46 PM EDT XR CERVICAL SPINE 2-3 VIEWS - Impression - 1. No acute osseous abnormality, with limited visualization of cervicothoracic junction. 2. Mild degenerative change. Electronically Signed By: Alirio Gamboa MD. Electronically Signed Date/Time: 02/13/2024 10:05 PM EDT 3 views of the right shoulder: Diffuse osteopenia. No acute fracture or dislocation.Degenerative change in the glenohumeral and AC joints. Subchondral cystic change underlying the humeral head greater tuberosity.Metallic BB density projects in the posterior soft tissues. Remainder of soft tissues grossly unremarkable. Electronically Signed By: Alirio Gamboa MD. Electronically Signed Date/Time: 02/13/2024 6:38 PM EDT 3 views left shoulder: Osteopenia. Proximal humeral surgical neck fracture. This is mildly impacted and displaced. The distal fracture fragment is displaced posteriorly 0.9 cm. Mild impaction more anteriorly. There is minimal apex dorsal angulation. Small fracture fragments are seen posterior to the shoulder. There is inferior humeral pseudosubluxation consistent with joint effusion, hemarthrosis. No gross evidence of glenoid fracture.There is [id number] acromioclavicular and mild glenohumeral osteoarthropathy.Left-sided pacemaker, leads incompletely evaluated.There is left-sided remote clavicle fracture deformity more centrally. Suspected healed left-sided rib fractures. Electronically Signed By: Tristen Snider Electronically Signed Date/Time: 12/29/2022 3:30 PM EDT CXR Left-sided cardiac device again noted and mild cardiomegaly, stable.Lungs are hyperinflated. No significant vascular congestion.No focal consolidation or apparent pneumothorax. Bilateral rotator cuff insufficiency and multiple, old right rib fracture deformities again noted. Electronically Signed By: Alirio Gamboa. Electronically Signed Date/Time: 09/12/2022 9:40 PM EST Assessment/Plan Active Problems: Hyponatremia Persistent depressive disorder DELORES (obstructive sleep apnea) Poor compliance with medication Permanent atrial fibrillation (HCC) Essential hypertension HFrEF (heart failure with reduced ejection fraction) (HCC) Above to be managed by primary team Associated Order(s): Inpatient consult to Gastroenterology Images from the original note were not included. GI CONSULTATION Patient: Krystina Markham : 1955 Primary Care Physician: JAMIA SIERRA MD Inpatient consult to Gastroenterology Consult performed by: Jose Navarro MD Consult ordered by: Ronnie Avery DO CHIEF COMPLAINT: elevated INR HISTORY OF PRESENT ILLNESS: 68 yo male with PMH as below whom GI is consulted for elevated INR/cirrhosis. Presented to the hospital with right shoulder pain and weakness. Long standing EtOH history, although patient states he has not had any EtOH in 3 months (previous daily drinking). Noted to have INR of 6.9. On Eliquis for Afib. Previous notes mention beer potomania in the setting of hyponatremia. US showed fatty infiltration vs cirrhosis. AST 39, ALT 16, TB 0.6, INR 6.9, Hgb 13.0, Plt 311 PAST MEDICAL HISTORY: Past Medical History: Diagnosis Date Alcohol consumption heavy 09/10/2015 Asthma Atrial fibrillation (HCC) CHF (congestive heart failure) (HCC) 01/31/2016 COPD (chronic obstructive pulmonary disease) (HCC) 09/10/2015 Cor, pulmonale, acute (CMS/HCC) (HCC) Deep venous thrombosis (HCC) 02/2016 Depression Hx of blood clots Obesity 09/10/2015 DELORES (obstructive sleep apnea) Pulmonary embolus (HCC) 6 16 Raynaud phenomenon 09/10/2015 Smoker 09/10/2015 PAST SURGICAL HISTORY: Past Surgical History: Procedure Laterality Date ABDOMINAL SURGERY BRONCHOSCOPY 02/25/2020 BRONCHOSCOPY (HISTORICAL) 02/25/2020 COLONOSCOPY 10/27/[address] CHEST ANGIOGRAM W AND/OR WO IV CONTRAST 07/12/2022 CT CHEST ANGIOGRAM W AND/OR WO IV CONTRAST 07/12/2022 [facility] CT IMAGING FINGER AMPUTATION Left HERNIA REPAIR NOSE SURGERY FAMILY HISTORY: Family History Problem Relation Name Age of Onset Asthma Father Congenital Anomaly Father Cancer Father Asthma Sister Heart disease Mother Heart disease Brother Pacemaker Mother Congenital Anomaly Sister Cancer Mother Diabetes Mother SOCIAL HISTORY: TOBACCO: reports that he has been smoking cigarettes. He started smoking about 51 years ago. He has a 10 pack-year smoking history. He has never used smokeless tobacco. ETOH: reports current alcohol use of about 7.0 standard drinks of alcohol per week. DRUGS: reports no history of drug use. Medications: Prior to Admission medications Medication Sig Start Date End Date Taking? Authorizing Provider albuterol (2.5 MG/3ML) 0.083% nebulizer solution TAKE 3 MLS VIA NEBULIZATION ONCE NEEDED FOR WHEEZING OR SHORTNESS OF BREATH FOR UP TO 75 DOSES 03/15/23 Yes Jamia Sierra MD [facility] B-1 100 MG tablet TAKE 1 TABLET BY MOUTH EVERY DAY 11/29/22 Yes Jamia Sierra MD losartan (Cozaar) 25 MG tablet Take 1 tablet (25 mg) by mouth daily. 11/15/23 11/14/24 Yes Matt Victoria MD metoprolol succinate XL (Toprol-XL) 100 MG 24 hr tablet TAKE 1 TABLET (100 MG) BY MOUTH IN THE MORNING AND 1 TABLET (100 MG) BEFORE BEDTIME. DO NOT CRUSH OR CHEW.. 05/31/23 02/13/24 Yes Ronnie Almaraz MD montelukast (Singulair) 10 MG tablet TAKE 1 TABLET BY MOUTH EVERY DAY IN THE EVENING 12/04/23 Yes Jamia Sierra MD Multiple Vitamins-Minerals (Therapeutic-M/Lutein) tablet TAKE 1 TABLET BY MOUTH IN THE MORNING, 1 TABLET AT NOON, AND 1 TABLET BEFORE BEDTIME 08/14/22 Yes Jamia Sierra MD rosuvastatin (Crestor) 40 MG tablet TAKE 1 TABLET BY MOUTH EVERY DAY NIGHTLY 02/27/23 Yes PRIYA Perez CNP sertraline (Zoloft) 100 MG tablet TAKE 1 TABLET (100 MG) BY MOUTH EVERY MORNING 12/04/23 03/03/24 Yes Jamia Sierra MD tiotropium (Spiriva Respimat) 1.25 MCG/ACT inhaler Inhale 2 puffs daily. 01/01/23 Yes Gifty Holguin MD torsemide (Demadex) 20 MG tablet TAKE 1 TABLET BY MOUTH TWICE A DAY 12/13/23 Yes Matt Victoria MD Eliquis 5 MG tablet Take 1 tablet (5 mg) by mouth 2 times daily. Patient not taking: Reported on 02/13/2024 11/14/23 02/12/24 Matt Victoria MD folic acid (Folvite) 1 MG tablet TAKE 1 TABLET BY MOUTH ONCE DAILY IN THE MORNING 09/04/23 Pedro Subramanian MD ipratropium-albuterol (Duo-Neb) 0.5-2.5 mg/3 mL nebulizer solution Take 3 mL by nebulization 2 times daily as needed for wheezing or shortness of breath. 01/01/23 06/30/23 Gifty Holguin MD spironolactone (Aldactone) 25 MG tablet Take 1 tablet (25 mg) by mouth Nightly. Patient not taking: Reported on 02/13/2024 07/30/22 PRIYA Perez CNP @[facility]@ ALLERGIES: No Known Allergies REVIEW OF SYSTEMS: No fever, chills, or sweats. Normal appetite and weight. No PARADA, visual disturbance, eye pain, jaundice, sore throat or mouth ulcers. No skin rash or itching. No CP, SOB, NARAYANAN, cough or wheeze. No urinary frequency, urgency, hematuria, or dysuria. No myalgia, arthralgia, or joint swelling. No weakness, numbness, or confusion. GI per HPI. No polyuria, polydipsia, heat or cold intolerance. PHYSICAL EXAM: VS: BP 136/86 (BP Location: Right arm, Patient Position: Sitting) Pulse 64 Temp 36.4 C (97.5 F) (Temporal) Resp 18 Ht 5' 9" (1.753 m) Wt 185 lb 3 oz (84 kg) SpO2 91% BMI 27.35 kg/m Body mass index is 27.35 kg/m . GENERAL: Pleasant and NAD. HEENT: NCAT, PERRLA, EOMI, Scleral anicteric. CV: RRR, NL S1/S2, no murmurs. LUNGS: CTA b/l. No W/R/R. Abdomen: + BS, soft, non-tender and non-distended. No rebound or guarding. Neurologic: A&O x 3, CN II-XII grossly intact. Non-focal. No asterixis. Psych: Normal affect and speech. LABS AND IMAGING: Recent blood work and relevant radiologic and endoscopic studies were reviewed and discussed with the patient. Old records have not been requested. CBC: Recent Labs 02/13/24183902/14/24 0604 WBC 10.1 10.2 HGB 12.8* 13.0 HCT 37.0* 37.6* PLT 299 311 HEPATIC: Recent Labs 02/13/24183902/14/24 0604 AST 32 39 ALT 16 16 BILITOT 0.6 0.6 ALKPHOS 119 104 LIPASE/AMYLASE: No results for input(s): "AMYLASE", "LIPASE" in the last 72 hours. LACTATE: No lab exists for component: "LACTA" BNP: Recent Labs 02/13/241839 BNP 5,900* INR: Recent Labs 02/13/24201702/14/24 0604 INR 5.4* 6.9* ECG 12 lead if not done in the ED Result Date: 02/14/2024 Atrial fibrillation Ventricular premature complex Left bundle branch block US abdomen limited Result Date: 02/13/2024 Patient Name: KRYSTINA MARKHAM : 1955 Exam Date/Time: 02/13/2024 22:35 Procedure: US ABDOMEN LIMITED Ordering Provider: AVERY JOSEPH Reason For Exam: assess for cirrhosis ULTRASOUND OF RIGHT UPPER QUADRANT CLINICAL INDICATION: assess for cirrhosis TECHNIQUE: Real-time ultrasound of the right upper quadrant of the abdomen. COMPARISON: None. FINDINGS: Gallbladder mildly distended measuring up to 10 cm in length without evidence of calculi. Wall thickness within normal limits. Intra-and extrahepatic bile ducts are of normal caliber. Negative sonographic Wright's sign. Liver has mildly coarsened and heterogeneous echogenicity and slightly nodular margins without focal abnormalities. Right kidney measures 11.2 cm in longest dimension and demonstrates small cyst in the upper pole measuring approximately 1 cm. No significant hydronephrosis. Limited visualized pancreatic parenchyma grossly unremarkable. 1. Gallbladder distention without apparent cholelithiasis. 2. Findings which may represent fatty infiltration in the liver versus nonspecific hepatocellular disease, including cirrhotic change. Correlation with appropriate laboratory values and follow-up suggested. 3. Small right renal cyst. Report Dictated on Electronically Signed By: Alirio Gamboa MD Electronically Signed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 and morphology. Other: The calvarium, skull base, imaged paranasal sinuses, mastoids, orbits and extracranial soft tissues are unremarkable. Impression: No CT evidence of an acute intracranial abnormality. Report Dictated on Electronically Signed By: Guillermo Boone MD Electronically Signed Date/Time: 02/13/2024 6:46 PM EDT POCT glucose meter Performed by: [facility], [address] [place] [address] CLIA ID: [id number] XR shoulder 2+ views right Narrative: [facility] Name[facility] 1955 [id number] Exam Date/Time: 02/13/2024 18:15 Procedure: XR SHOULDER 2+ VIEWS RIGHT Ordering Provider: AVERY JOSEPH Reason For Exam: shoulder pain RIGHT SHOULDER 3 VIEWS CLINICAL INDICATION: shoulder pain TECHNIQUE: 3 views of the right shoulder. COMPARISON: None. FINDINGS: Diffuse osteopenia. No acute fracture or dislocation. Degenerative change in the glenohumeral and AC joints. Subchondral cystic change underlying the humeral head greater tuberosity. Metallic BB density projects in the posterior soft tissues. Remainder of soft tissues grossly unremarkable. Impression: 1. No acute osseous abnormality. 2. Degenerative change, and retained soft tissue foreign body. Report Dictated on Electronically Signed By: Alirio Gamboa MD Electronically Signed Date/Time: 02/13/2024 6:38 PM EDT ECG 12 lead if not already done by Squad Atrial fibrillation Paired ventricular premature complexes Left bundle branch block ST elevation secondary to IVCD EKG: Encounter Date: 02/13/24 ECG 12 lead if not already done by Squad Result Value Heart Rate 87 QRSD Interval 165 QT Interval 442 QTC Interval 564 P [place] 0 QRS [place] 58 T Wave [place] 59 VA Interval 0 Impression Atrial fibrillation Paired ventricular premature complexes Left bundle branch block ST elevation secondary to IVCD ED medications: Medications sodium chloride 0.9% (NS) flush 5-40 mL (has no administration in time range) torsemide (Demadex) tablet 20 mg (has no administration in time range) mometasone-formoterol (Dulera 100) 100-5 MCG/ACT inhaler 2 puff (has no administration in time range) sertraline (Zoloft) tablet 100 mg ( Oral Dose Auto Held 02/18/24 0900) rosuvastatin (Crestor) tablet 40 mg (has no administration in time range) montelukast (Singulair) tablet 10 mg (has no administration in time range) metoprolol succinate XL (Toprol-XL) 24 hr tablet 100 mg (has no administration in time range) losartan (Cozaar) tablet 25 mg (has no administration in time range) ipratropium-albuterol (Duo-Neb) 0.5-2.5 mg/3 mL nebulizer solution 3 mL (has no administration in time range) folic acid (Folvite) tablet 1,000 mcg (has no administration in time range) apixaban (Eliquis) tablet 5 mg (has no administration in time range) spironolactone (Aldactone) tablet 25 mg (has no administration in time range) nicotine (Nicoderm, Step 2) 14 MG/24HR patch 1 patch (has no administration in time range) sodium chloride 0.9 % infusion (has no administration in time range) labetalol (Normodyne,Trandate) injection 10 mg (has no administration in time range) acetaminophen (Tylenol) tablet 650 mg (has no administration in time range) Or acetaminophen (Tylenol) suppository 650 mg (has no administration in time range) polyethylene glycol (PEG) 3350 (Miralax) packet 17 g (has no administration in time range) LORazepam (Ativan) tablet 1 mg (has no administration in time range) Or LORazepam (Ativan) injection 1 mg (has no administration in time range) Or LORazepam (Ativan) tablet 2 mg (has no administration in time range) Or LORazepam (Ativan) injection 2 mg (has no administration in time range) Or LORazepam (Ativan) tablet 3 mg (has no administration in time range) Or LORazepam (Ativan) injection 3 mg (has no administration in time range) Or LORazepam (Ativan) tablet 4 mg (has no administration in time range) Or LORazepam (Ativan) injection 4 mg (has no administration in time range) thiamine (Vitamin B1) tablet 100 mg (has no administration in time range) therapeutic multivitamin-minerals (Theragran-M) tablet (has no administration in time range) oxyCODONE-acetaminophen (Percocet) 5-325 MG per tablet 1 tablet (1 tablet Oral Given 02/13/241840) aspirin chewable tablet 324 mg (324 mg Oral Given 02/13/242013) ED COURSE: Aspirin 324 mg, Percocet 5-325 mg ASSESSMENT/PLAN: 1. Right shoulder pain and numbness 2/2 Stroke rule out vs MSK -Admit to Tele -Rosuvastatin Stroke rule out order set: -MRI Brain -A1c - Lipid panel - Xray Cervical spine -PT/OT -CM/SW -CBC/BMP daily HFrEF with biventricular ICD implantation in 2019 Hx of cor pulmonale TTE 11/2023 EF: 21% Severe global hypokinesis present. Mild to moderate right-sided systolic dysfunction. ICD check last performed on 10/02/2023: normal device fxn, afib ; elevated BNP 5,900 - home torsemide 20mg BID PO - home spironolactone 25mg daily - Losartan 25 mg daily - Metoprolol succinate 100 mg twice daily Permanent A-fib with ICD device -Continue home medications -Eliquis 5 mg twice daily, has not been taking since December due to cost -Metoprolol succinate 100 mg twice daily CAD - home rosuvastatin 40mg nightly COPD Tobacco use - montelukast 10 mg - Home inhalers: spriva - duoneb q4 hours PRN - Prevention: Smoking cessation discussed and encouraged - nicotine patch Prolonged QTC 564 - avoid QTC prolonging medications 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 B12 wnl - monitor Na - folic acid, thiamine - multivitamin -Folate level - ETOH and Ethyl gluconride - MAT - Consider liver US - CIWA and PRN ativan if CIWA >8 - Consider RUQ US Obstructive sleep apnea -AutoPap Depression -resume Zoloft 100 mg daily Concern for dementia Not oriented to time Hx of poor medical compliance FEN/GI/DVT: IVF: NS @ 50 ml/hr Electrolytes: Monitor and replace per protocols Diet: Cardiac GI PPX: No DVT Prophylaxis: No prophylaxis/Already on anticoagulation: Eliquis CODE STATUS: Full Problem list completed - Yes Case discussed with: Dr. Westfall (Attending), Dr. Rock (PGY-II) Sukumar South MD Pager #: [phone] 02/13/2024 9:56 PM documented in this encounter [facility] 02-13-2024 Emergency department Note HOB at 30 degrees Giovana Forrest RN 02/13/241812 [facility] 02-13-2024 Emergency department Note HOB at 30 degrees Giovana Forrest RN 02/13/241812 EMERGENCY DEPARTMENT ENCOUNTER Pt Name: Krystina Markham Birthdate 1955 Date of evaluation: 02/13/2024 ED Provider: Ronnie Avery DO CHIEF COMPLAINT Chief Complaint Patient presents with Shoulder Pain Pt presents to ED with c/o R shoulder pain x2 weeks. States that today his right hand started going numb yesterday and worsened around 0800 today. Denies h/o stroke. States that he is supposed to take Eliquis every day but hasn't been due to cost. HISTORY OF PRESENT ILLNESS (Location/Symptom, Timing/Onset, Context/Setting, Quality, Duration, Modifying Factors, Severity) Note limiting factors. I wore appropriate PPE for the entirety of this encounter. HPI Krystina Markham is a 68 y.o. who presents to the emergency department with right shoulder pain and right arm numbness. The patient reports that right shoulder pain has been ongoing for the past few weeks. He denies any injury. He reports that yesterday he started to experience numbness in the right upper extremity. The patient denies history of stroke. He denies other neurologic symptoms. He admits to history of A-fib, CHF, and he is not currently on anticoagulation secondary to financial reasons. Nursing Notes were reviewed. Limitations to history: Outside historians: REVIEW OF SYSTEMS Review of Systems Musculoskeletal: Positive for right shoulder pain Neurological: Positive for numbness. Pertinent positives and negatives as per HPI PAST MEDICAL HISTORY Past Medical History: Diagnosis Date Alcohol consumption heavy 09/10/2015 Asthma Atrial fibrillation (HCC) CHF (congestive heart failure) (HCC) 01/31/2016 COPD (chronic obstructive pulmonary disease) ([facility]) 09/10/2015 Cor, pulmonale, acute (CMS/HCC) ([facility]) Deep venous thrombosis ([facility]) 02/2016 Depression Hx of blood clots Obesity 09/10/2015 DELORES (obstructive sleep apnea) Pulmonary embolus ([facility]) 6 16 Raynaud phenomenon 09/10/2015 Smoker 09/10/2015 SURGICAL HISTORY Past Surgical History: Procedure Laterality Date ABDOMINAL SURGERY BRONCHOSCOPY 02/25/2020 BRONCHOSCOPY (HISTORICAL) 02/25/2020 COLONOSCOPY 10/27/[address] CHEST ANGIOGRAM W AND/OR WO IV CONTRAST 07/12/2022 CT CHEST ANGIOGRAM W AND/OR WO IV CONTRAST 07/12/2022 [facility] CT IMAGING FINGER AMPUTATION Left HERNIA REPAIR NOSE SURGERY CURRENT MEDICATIONS Previous Medications ALBUTEROL (2.5 MG/3ML) 0.083% NEBULIZER SOLUTION TAKE 3 MLS VIA NEBULIZATION ONCE NEEDED FOR WHEEZING OR SHORTNESS OF BREATH FOR UP TO 75 DOSES [facility] B-1 100 MG TABLET TAKE 1 TABLET BY MOUTH EVERY DAY ELIQUIS 5 MG TABLET Take 1 tablet (5 mg) by mouth 2 times daily. FOLIC ACID (FOLVITE) 1 MG TABLET TAKE 1 TABLET BY MOUTH ONCE DAILY IN THE MORNING IPRATROPIUM-ALBUTEROL (DUO-NEB) 0.5-2.5 MG/3 ML NEBULIZER SOLUTION Take 3 mL by nebulization 2 times daily as needed for wheezing or shortness of breath. LOSARTAN (COZAAR) 25 MG TABLET Take 1 tablet (25 mg) by mouth daily. METOPROLOL SUCCINATE XL (TOPROL-XL) 100 MG 24 HR TABLET TAKE 1 TABLET (100 MG) BY MOUTH IN THE MORNING AND 1 TABLET (100 MG) BEFORE BEDTIME. DO NOT CRUSH OR CHEW.. MONTELUKAST (SINGULAIR) 10 MG TABLET TAKE 1 TABLET BY MOUTH EVERY DAY IN THE EVENING MULTIPLE VITAMINS-MINERALS (THERAPEUTIC-M/LUTEIN) TABLET TAKE 1 TABLET BY MOUTH IN THE MORNING, 1 TABLET AT NOON, AND 1 TABLET BEFORE BEDTIME ROSUVASTATIN (CRESTOR) 40 MG TABLET TAKE 1 TABLET BY MOUTH EVERY DAY NIGHTLY SERTRALINE (ZOLOFT) 100 MG TABLET TAKE 1 TABLET (100 MG) BY MOUTH EVERY MORNING SPIRONOLACTONE (ALDACTONE) 25 MG TABLET Take 1 tablet (25 mg) by mouth Nightly. TIOTROPIUM (SPIRIVA RESPIMAT) 1.25 MCG/ACT INHALER Inhale 2 puffs daily. TORSEMIDE (DEMADEX) 20 MG TABLET TAKE 1 TABLET BY MOUTH TWICE A DAY ALLERGIES Patient has no known allergies. FAMILY HISTORY Family History Problem Relation Name Age of Onset Asthma Father Congenital Anomaly Father Cancer Father Asthma Sister Heart disease Mother Heart disease Brother Pacemaker Mother Congenital Anomaly Sister Cancer Mother Diabetes Mother SOCIAL HISTORY Social History Socioeconomic History Marital status: Tobacco Use Smoking status: Every Day Packs/day: 0.25 Years: 40.00 Additional pack years: 0.00 Total pack years: 10.00 Types: Cigarettes Start date: 1972 Smokeless tobacco: Never Tobacco comments: 8 cig daily Substance and Sexual Activity Alcohol use: Yes Alcohol/week: 7.0 standard drinks of alcohol Types: 7 Cans of beer per week Comment: once beer daily Drug use: Never Social Determinants of Health Financial Resource Strain: Low Risk (01/07/2023) Overall Financial Resource Strain (CARDIA) Difficulty of Paying Living Expenses: Not hard at all Food Insecurity: No Food Insecurity (01/07/2023) Hunger Vital Sign Worried About Running Out of Food in the Last Year: Never true Ran Out of Food in the Last Year: Never true Transportation Needs: No Transportation Needs (01/07/2023) PRAPARE - Transportation Lack of Transportation (Medical): No Lack of Transportation (Non-Medical): No Intimate Partner Violence: Not At Risk (11/13/2023) Humiliation, Afraid, Rape, and Kick questionnaire Fear of Current or Ex-Partner: No Emotionally Abused: No Physically Abused: No Sexually Abused: No PHYSICAL EXAM ED Triage Vitals [02/13/24 1734] Temp Heart Rate Resp BP (!) 35.7 C (96.3 F) 95 19 (!) 172/94 SpO2 Temp Source Heart Rate Source Patient Position 94 % Temporal Monitor -- BP Location FiO2 (%) -- -- Physical Exam Constitutional: General: He is not in acute distress. HENT: Head: Normocephalic. Eyes: Conjunctiva/sclera: Conjunctivae normal. Cardiovascular: Rate and Rhythm: Normal rate and regular rhythm. Pulmonary: Effort: Pulmonary effort is normal. Abdominal: General: Abdomen is flat. Tenderness: There is no abdominal tenderness. Musculoskeletal: General: No deformity. Comments: Tenderness to the right shoulder, limited range of motion,, strong radial pulse in the right upper extremity. Skin: General: Skin is warm and dry. Neurological: Comments: NIH stroke scale of 3, 1 for right upper extremity numbness, 2 for right upper extremity weakness (weakness may be secondary to MSK etiology, however was counted) Psychiatric: Mood and Affect: Mood normal. DIAGNOSTIC RESULTS RADIOLOGY (Per Emergency Physician): Interpretation per the Radiologist below, if available at the time of this note: CT head wo IV contrast Final Result No CT evidence of an acute intracranial abnormality. Report Dictated on Electronically Signed By: Guillermo Boone MD Electronically Signed Date/Time: 02/13/2024 6:46 PM EDT XR shoulder 2+ views right Final Result 1. No acute osseous abnormality. 2. Degenerative change, and retained soft tissue foreign body. Report Dictated on Electronically Signed By: Alirio Gamboa MD Electronically Signed Date/Time: 02/13/2024 6:38 PM EDT LABS: Labs Reviewed CBC WITH AUTO DIFFERENTIAL - Abnormal Result Value Auto WBC 10.1 RBC 4.13 (*) Hemoglobin 12.8 (*) Hematocrit 37.0 (*) MCV 89.6 MCH 31.0 MCHC 34.6 RDW 13.5 Platelets 299 MPV 9.1 nRBC 0.0 Neutrophils Relative 78.9 Lymphocytes Relative 10.6 (*) Monocytes Relative 7.3 Eosinophils Relative 2.0 Basophils Relative 0.8 Immature Grans % 0.4 Neutrophils Absolute 8.0 (*) Lymphocytes Absolute 1.1 Monocytes Absolute 0.7 Eosinophils Absolute 0.2 Basophils Absolute 0.1 Immature Grans Absolute 0.0 NT PRO BNP - Abnormal NT PRO BNP 5,900 (*) COMPREHENSIVE METABOLIC PANEL - Abnormal SODIUM 133 (*) POTASSIUM 4.0 CHLORIDE 97 (*) CARBON DIOXIDE 23 ANION GAP 13 UREA NITROGEN 6 (*) CREATININE 0.57 (*) GLUCOSE 99 CALCIUM 9.8 AST (SGOT) 32 ALT 16 ALKALINE PHOSPHATASE 119 ALBUMIN 4.0 BILIRUBIN, TOTAL 0.6 TOTAL PROTEIN 7.6 eGFR >90.0 POCT GLUCOSE METER UNSOLICITED RESULTS - Abnormal Glucose 110 (*) Narrative: Performed by: [facility], [address] [place] [id number] CLIA ID: [id number] TROPONIN, WITH SERIAL REFLEX - Normal TROPONIN I 0.023 Narrative: Patients with high levels of Biotin oral intake (ie >5 mg/day) may have falsely decreased Troponin levels. COMPREHENSIVE METABOLIC PANEL WITH MG REFLEX Narrative: The following orders were created for panel order Comprehensive Metabolic Panel with Mg Reflex. Procedure Abnormality Status --------- ------ Comprehensive metabolic p...[[id number]] Abnormal Final result Please view results for these tests on the individual orders. PROTIME & APTT TROPONIN I TROPONIN I POCT GLUCOSE METER All other labs were within normal range or not returned as of this dictation. EMERGENCY DEPARTMENT COURSE and DIFFERENTIAL DIAGNOSIS/MDM: Vitals: Vitals: 02/13/24 1734 02/13/24 1735 BP: (!) 172/94 Pulse: 95 Resp: 19 Temp: (!) 35.7 C (96.3 F) TempSrc: Temporal SpO2: 94% 94% Weight: 83.5 kg (184 lb) Medications sodium chloride 0.9% (NS) flush 5-40 mL (has no administration in time range) aspirin chewable tablet 324 mg (has no administration in time range) oxyCODONE-acetaminophen (Percocet) 5-325 MG per tablet 1 tablet (1 tablet Oral Given 02/13/24 1841) SCREENINGS 6:03 PM - The patient presented with chief complaint of right shoulder pain and right upper extremity numbness. See history and physical exam above. Differential diagnosis includes but is not limited to shoulder strain, radiculopathy, CVA. The patient has an initial NIH stroke scale of 3, he is not a candidate for TNK because he is outside of the time window. The patient's neurologic symptoms may be due to peripheral etiology from his shoulders however may also be due to central etiology given his significant stroke risk factors and history of A-fib not currently on anticoagulation. To aid in management, I performed an independent interpretation of all laboratory tests, EKG, imaging, and other diagnostics ordered. CT head is unremarkable. Plain films are negative for acute fracture. Blood counts, electrolytes, kidney function are unremarkable. BNP is significantly elevated. Given the patient's age, hypertension, and other significant risk factors for stroke he will require admission to rule out CVA as etiology of his right upper extremity numbness and weakness. I discussed the case with the MTS provider who is agreeable. Patient's care was impacted by Hypertension, Heart disease, and afib . Patient's care was significantly impacted by social determinants of health including Low income. PROCEDURES: Unless otherwise noted below, none Procedures CRITICAL CARE TIME FINAL IMPRESSION 1. Right arm numbness 2. Stroke-like symptoms DISPOSITION Admit 02/13/2024 07:36:12 PM PATIENT REFERRED TO: No follow-up provider specified. DISCHARGE MEDICATIONS: New Prescriptions No medications on file (Comment: Please note this report has been produced using speech recognition software and may contain errors related to that system including errors in grammar, punctuation, and spelling, as well as words and phrases that may be inappropriate. If there are any questions or concerns please feel free to contact the dictating provider for clarification.) Ronnie Avery DO (electronically signed) Emergency Medicine Provider Ronnie Avery DO 02/13/241936 documented in this encounter [facility] 02-13-2024 Physician Emergency department Note EMERGENCY DEPARTMENT ENCOUNTER Pt Name: Krystina Markham Birthdate 1955 Date of evaluation: 02/13/2024 ED Provider: Ronnie Avery DO CHIEF COMPLAINT Chief Complaint Patient presents with Shoulder Pain Pt presents to ED with c/o R shoulder pain x2 weeks. States that today his right hand started going numb yesterday and worsened around 0800 today. Denies h/o stroke. States that he is supposed to take Eliquis every day but hasn't been due to cost. HISTORY OF PRESENT ILLNESS (Location/Symptom, Timing/Onset, Context/Setting, Quality, Duration, Modifying Factors, Severity) Note limiting factors. I wore appropriate PPE for the entirety of this encounter. HPI Krystina Markham is a 68 y.o. who presents to the emergency department with right shoulder pain and right arm numbness. The patient reports that right shoulder pain has been ongoing for the past few weeks. He denies any injury. He reports that yesterday he started to experience numbness in the right upper extremity. The patient denies history of stroke. He denies other neurologic symptoms. He admits to history of A-fib, CHF, and he is not currently on anticoagulation secondary to financial reasons. Nursing Notes were reviewed. Limitations to history: Outside historians: REVIEW OF SYSTEMS Review of Systems Musculoskeletal: Positive for right shoulder pain Neurological: Positive for numbness. Pertinent positives and negatives as per HPI PAST MEDICAL HISTORY Past Medical History: Diagnosis Date Alcohol consumption heavy 09/10/2015 Asthma Atrial fibrillation ([facility]) CHF (congestive heart failure) ([facility]) 01/31/2016 COPD (chronic obstructive pulmonary disease) ([facility]) 09/10/2015 Cor, pulmonale, acute (CMS/HCC) ([facility]) Deep venous thrombosis ([facility]) 02/2016 Depression Hx of blood clots Obesity 09/10/2015 DELORES (obstructive sleep apnea) Pulmonary embolus ([facility]) 6 16 Raynaud phenomenon 09/10/2015 Smoker 09/10/2015 SURGICAL HISTORY Past Surgical History: Procedure Laterality Date ABDOMINAL SURGERY BRONCHOSCOPY 02/25/2020 BRONCHOSCOPY (HISTORICAL) 02/25/2020 COLONOSCOPY 10/27/[address] CHEST ANGIOGRAM W AND/OR WO IV CONTRAST 07/12/2022 CT CHEST ANGIOGRAM W AND/OR WO IV CONTRAST 07/12/2022 [facility] CT IMAGING FINGER AMPUTATION Left HERNIA REPAIR NOSE SURGERY CURRENT MEDICATIONS Previous Medications ALBUTEROL (2.5 MG/3ML) 0.083% NEBULIZER SOLUTION TAKE 3 MLS VIA NEBULIZATION ONCE NEEDED FOR WHEEZING OR SHORTNESS OF BREATH FOR UP TO 75 DOSES [facility] B-1 100 MG TABLET TAKE 1 TABLET BY MOUTH EVERY DAY ELIQUIS 5 MG TABLET Take 1 tablet (5 mg) by mouth 2 times daily. FOLIC ACID (FOLVITE) 1 MG TABLET TAKE 1 TABLET BY MOUTH ONCE DAILY IN THE MORNING IPRATROPIUM-ALBUTEROL (DUO-NEB) 0.5-2.5 MG/3 ML NEBULIZER SOLUTION Take 3 mL by nebulization 2 times daily as needed for wheezing or shortness of breath. LOSARTAN (COZAAR) 25 MG TABLET Take 1 tablet (25 mg) by mouth daily. METOPROLOL SUCCINATE XL (TOPROL-XL) 100 MG 24 HR TABLET TAKE 1 TABLET (100 MG) BY MOUTH IN THE MORNING AND 1 TABLET (100 MG) BEFORE BEDTIME. DO NOT CRUSH OR CHEW.. MONTELUKAST (SINGULAIR) 10 MG TABLET TAKE 1 TABLET BY MOUTH EVERY DAY IN THE EVENING MULTIPLE VITAMINS-MINERALS (THERAPEUTIC-M/LUTEIN) TABLET TAKE 1 TABLET BY MOUTH IN THE MORNING, 1 TABLET AT NOON, AND 1 TABLET BEFORE BEDTIME ROSUVASTATIN (CRESTOR) 40 MG TABLET TAKE 1 TABLET BY MOUTH EVERY DAY NIGHTLY SERTRALINE (ZOLOFT) 100 MG TABLET TAKE 1 TABLET (100 MG) BY MOUTH EVERY MORNING SPIRONOLACTONE (ALDACTONE) 25 MG TABLET Take 1 tablet (25 mg) by mouth Nightly. TIOTROPIUM (SPIRIVA RESPIMAT) 1.25 MCG/ACT INHALER Inhale 2 puffs daily. TORSEMIDE (DEMADEX) 20 MG TABLET TAKE 1 TABLET BY MOUTH TWICE A DAY ALLERGIES Patient has no known allergies. FAMILY HISTORY Family History Problem Relation Name Age of Onset Asthma Father Congenital Anomaly Father Cancer Father Asthma Sister Heart disease Mother Heart disease Brother Pacemaker Mother Congenital Anomaly Sister Cancer Mother Diabetes Mother SOCIAL HISTORY Social History Socioeconomic History Marital status: Tobacco Use Smoking status: Every Day Packs/day: 0.25 Years: 40.00 Additional pack years: 0.00 Total pack years: 10.00 Types: Cigarettes Start date: 1972 Smokeless tobacco: Never Tobacco comments: 8 cig daily Substance and Sexual Activity Alcohol use: Yes Alcohol/week: 7.0 standard drinks of alcohol Types: 7 Cans of beer per week Comment: once beer daily Drug use: Never Social Determinants of Health Financial Resource Strain: Low Risk (01/07/2023) Overall Financial Resource Strain (CARDIA) Difficulty of Paying Living Expenses: Not hard at all Food Insecurity: No Food Insecurity (01/07/2023) Hunger Vital Sign Worried About Running Out of Food in the Last Year: Never true Ran Out of Food in the Last Year: Never true Transportation Needs: No Transportation Needs (01/07/2023) PRAPARE - Transportation Lack of Transportation (Medical): No Lack of Transportation (Non-Medical): No Intimate Partner Violence: Not At Risk (11/13/2023) Humiliation, Afraid, Rape, and Kick questionnaire Fear of Current or Ex-Partner: No Emotionally Abused: No Physically Abused: No Sexually Abused: No PHYSICAL EXAM ED Triage Vitals [02/13/24 1734] Temp Heart Rate Resp BP (!) 35.7 C (96.3 F) 95 19 (!) 172/94 SpO2 Temp Source Heart Rate Source Patient Position 94 % Temporal Monitor -- BP Location FiO2 (%) -- -- Physical Exam Constitutional: General: He is not in acute distress. HENT: Head: Normocephalic. Eyes: Conjunctiva/sclera: Conjunctivae normal. Cardiovascular: Rate and Rhythm: Normal rate and regular rhythm. Pulmonary: Effort: Pulmonary effort is normal. Abdominal: General: Abdomen is flat. Tenderness: There is no abdominal tenderness. Musculoskeletal: General: No deformity. Comments: Tenderness to the right shoulder, limited range of motion,, strong radial pulse in the right upper extremity. Skin: General: Skin is warm and dry. Neurological: Comments: NIH stroke scale of 3, 1 for right upper extremity numbness, 2 for right upper extremity weakness (weakness may be secondary to MSK etiology, however was counted) Psychiatric: Mood and Affect: Mood normal. DIAGNOSTIC RESULTS RADIOLOGY (Per Emergency Physician): Interpretation per the Radiologist below, if available at the time of this note: CT head wo IV contrast Final Result No CT evidence of an acute intracranial abnormality. Report Dictated on Electronically Signed By: Guillermo Boone MD Electronically Signed Date/Time: 02/13/2024 6:46 PM EDT XR shoulder 2+ views right Final Result 1. No acute osseous abnormality. 2. Degenerative change, and retained soft tissue foreign body. Report Dictated on Electronically Signed By: Alirio Gamboa MD Electronically Signed Date/Time: 02/13/2024 6:38 PM EDT LABS: Labs Reviewed CBC WITH AUTO DIFFERENTIAL - Abnormal Result Value Auto WBC 10.1 RBC 4.13 (*) Hemoglobin 12.8 (*) Hematocrit 37.0 (*) MCV 89.6 MCH 31.0 MCHC 34.6 RDW 13.5 Platelets 299 MPV 9.1 nRBC 0.0 Neutrophils Relative 78.9 Lymphocytes Relative 10.6 (*) Monocytes Relative 7.3 Eosinophils Relative 2.0 Basophils Relative 0.8 Immature Grans % 0.4 Neutrophils Absolute 8.0 (*) Lymphocytes Absolute 1.1 Monocytes Absolute 0.7 Eosinophils Absolute 0.2 Basophils Absolute 0.1 Immature Grans Absolute 0.0 NT PRO BNP - Abnormal NT PRO BNP 5,900 (*) COMPREHENSIVE METABOLIC PANEL - Abnormal SODIUM 133 (*) POTASSIUM 4.0 CHLORIDE 97 (*) CARBON DIOXIDE 23 ANION GAP 13 UREA NITROGEN 6 (*) CREATININE 0.57 (*) GLUCOSE 99 CALCIUM 9.8 AST (SGOT) 32 ALT 16 ALKALINE PHOSPHATASE 119 ALBUMIN 4.0 BILIRUBIN, TOTAL 0.6 TOTAL PROTEIN 7.6 eGFR >90.0 POCT GLUCOSE METER UNSOLICITED RESULTS - Abnormal Glucose 110 (*) Narrative: Performed by: Natalie Tenorio [facility], [address] [place] [id number] CLIA ID: [id number] TROPONIN, WITH SERIAL REFLEX - Normal TROPONIN I 0.023 Narrative: Patients with high levels of Biotin oral intake (ie >5 mg/day) may have falsely decreased Troponin levels. COMPREHENSIVE METABOLIC PANEL WITH MG REFLEX Narrative: The following orders were created for panel order Comprehensive Metabolic Panel with Mg Reflex. Procedure Abnormality Status --------- ------ Comprehensive metabolic p...[[id number]] Abnormal Final result Please view results for these tests on the individual orders. PROTIME & APTT TROPONIN I TROPONIN I POCT GLUCOSE METER All other labs were within normal range or not returned as of this dictation. EMERGENCY DEPARTMENT COURSE and DIFFERENTIAL DIAGNOSIS/MDM: Vitals: Vitals: 02/13/24 1734 02/13/24 1735 BP: (!) 172/94 Pulse: 95 Resp: 19 Temp: (!) 35.7 C (96.3 F) TempSrc: Temporal SpO2: 94% 94% Weight: 83.5 kg (184 lb) Medications sodium chloride 0.9% (NS) flush 5-40 mL (has no administration in time range) aspirin chewable tablet 324 mg (has no administration in time range) oxyCODONE-acetaminophen (Percocet) 5-325 MG per tablet 1 tablet (1 tablet Oral Given 02/13/24 1841) SCREENINGS 6:03 PM - The patient presented with chief complaint of right shoulder pain and right upper extremity numbness. See history and physical exam above. Differential diagnosis includes but is not limited to shoulder strain, radiculopathy, CVA. The patient has an initial NIH stroke scale of 3, he is not a candidate for TNK because he is outside of the time window. The patient's neurologic symptoms may be due to peripheral etiology from his shoulders however may also be due to central etiology given his significant stroke risk factors and history of A-fib not currently on anticoagulation. To aid in management, I performed an independent interpretation of all laboratory tests, EKG, imaging, and other diagnostics ordered. CT head is unremarkable. Plain films are negative for acute fracture. Blood counts, electrolytes, kidney function are unremarkable. BNP is significantly elevated. Given the patient's age, hypertension, and other significant risk factors for stroke he will require admission to rule out CVA as etiology of his right upper extremity numbness and weakness. I discussed the case with the MTS provider who is agreeable. Patient's care was impacted by Hypertension, Heart disease, and afib . Patient's care was significantly impacted by social determinants of health including Low income. PROCEDURES: Unless otherwise noted below, none Procedures CRITICAL CARE TIME FINAL IMPRESSION 1. Right arm numbness 2. Stroke-like symptoms DISPOSITION Admit 02/13/2024 07:36:12 PM PATIENT REFERRED TO: No follow-up provider specified. DISCHARGE MEDICATIONS: New Prescriptions No medications on file (Comment: Please note this report has been produced using speech recognition software and may contain errors related to that system including errors in grammar, punctuation, and spelling, as well as words and phrases that may be inappropriate. If there are any questions or concerns please feel free to contact the dictating provider for clarification.) Ronnie Avery DO (electronically signed) Emergency Medicine Provider Ronnie Avery DO 02/13/241936 [facility] 01-17-2024 Miscellaneous Notes Form given to RILEY who completed physician portion and signed. Form was then faxed to [facility] and sent to stat scan 02/14/24 dlm Device info completed and form returned to Bekah for physician signature MRI/PPM form received. Given to Tati to complete. documented in this encounter [facility] 11-14-2023 Hospital course Narrative Images from the original note were not included. [facility] Service Discharge Summary Patient: Krystina Markham : 1955 Acct: [id number] PCP: JAMIA SIERRA MD Admitting Physician: Siria Dumont MD Admission Date: 11/11/2023 Discharge Date: 11/14/2023 Visit Status: Admission Code Status: Full Code Admission Diagnosis: Paroxysmal atrial fibrillation (HCC) [I48.0] COPD exacerbation (HCC) [J44.1] HFrEF (heart failure with reduced ejection fraction) (HCC) [I50.20] Presence of implantable cardioverter-defibrillator (ICD) [Z95.810] Acute on chronic congestive heart failure, unspecified heart failure type (HCC) [I50.9] Present on Admission: COPD exacerbation (HCC) Alcohol abuse Paroxysmal atrial fibrillation (HCC) Chronic hyponatremia COPD (chronic obstructive pulmonary disease) (HCC) HFrEF (heart failure with reduced ejection fraction) (HCC) (Resolved) Acute exacerbation of CHF (congestive heart failure) (HCC) Medical non-compliance Cor, pulmonale, acute (CMS/HCC) (HCC) Essential hypertension Discharge Diagnoses: Active Problems: Tobacco abuse Presence of implantable cardioverter-defibrillator (ICD) Alcohol abuse COPD exacerbation (HCC) Medical non-compliance Paroxysmal atrial fibrillation (HCC) Cor, pulmonale, acute (CMS/HCC) (HCC) Chronic hyponatremia Essential hypertension COPD (chronic obstructive pulmonary disease) (HCC) HFrEF (heart failure with reduced ejection fraction) (HCC) HOSPITAL COURSE: Krystina Markham is a 68 y.o. male presented with dyspnea 2/2 to acute on chronic CHF with a PMHx of COPD (reports PRN oxygen at home), cor pulmonale, alcohol abuse, DELORES. CXR demonstrated some pulmonary congestion which improved after diuresis with IV lasix. He required 3L of oxygen on admission. He was transitioned back to his usual PO diuresis and denied SOB. He was saturating appropriately on room air and medically stable for discharge. Significant Medication Changes: Started Losartan 25mg daily for GDMT RECOMMENDED NEXT STEPS: PCP and Cardiology follow up SIGNIFICANT DIAGNOSTIC STUDIES: XR chest 2 views Final Result FINDINGS/IMPRESSION: Limitations: Slight rotation Lines, tubes, and devices: Dual-lead left-sided AICD device in place Cardiomediastinal silhouette: Cardiomegaly as before Lungs/Pleura: Background of mild chronic lung changes. Diffuse hazy groundglass opacities involving both lungs slightly improved likely reflecting improving pulmonary vascular congestion. Mild patchy confluent bibasilar opacities reflecting mild atelectasis and/or pneumonia similar to prior study. Suspect trace to small pleural effusions versus pleural thickening. No pneumothorax. 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 Multiple healed fracture deformities. Partial visualization of left proximal humeral fracture Soft tissues: No soft tissue abnormality is detected. Report Dictated on Electronically Signed By: Asa Patel MD Electronically Signed Date/Time: 11/12/2023 8:40 AM EDT XR chest 1 view Final Result 1. Findings which may represent vascular congestion, nonspecific infectious/inflammatory process and pneumonitis or chronic interstitial and fibrotic change, increased or with interval progression. Clinical correlation and follow-up as indicated. Report Dictated on Electronically Signed By: Alirio Gamboa MD Electronically Signed Date/Time: 11/11/2023 9:06 PM EDT Consultants: IP CONSULT TO SOCIAL WORK IP CONSULT TO CASE MANAGEMENT IP CONSULT TO CARDIOLOGY Pending Inpatient Studies: No Discharge Instructions: Diet: Adult diet Regular; Low Fat/Low Chol/High Fiber/2 gm Na Activity: No restriction. Disposition: Home Recommended Follow Up: Jamia Sierra MD [address] [place] [id number] Follow up in 1 week(s) Discharge Medications: Medication List START taking these medications losartan 25 MG tablet Commonly known as: Cozaar Take 1 tablet (25 mg) by mouth daily. Start taking on: November 15, 2023 montelukast 10 MG tablet Commonly known as: Singulair TAKE 1 TABLET BY MOUTH EVERY DAY IN THE EVENING predniSONE 50 MG tablet Commonly known as: Deltasone Take 1 tablet (50 mg) by mouth daily for 1 dose. Start taking on: November 15, 2023 rosuvastatin 40 MG tablet Commonly known as: Crestor TAKE 1 TABLET BY MOUTH EVERY DAY NIGHTLY sertraline 100 MG tablet Commonly known as: Zoloft TAKE 1 TABLET (100 MG) BY MOUTH EVERY MORNING spironolactone 25 MG tablet Commonly known as: Aldactone Take 1 tablet (25 mg) by mouth Nightly. tiotropium 1.25 MCG/ACT inhaler Commonly known as: Spiriva Respimat Inhale 2 puffs daily. CHANGE how you take these medications albuterol (2.5 MG/3ML) 0.083% nebulizer solution TAKE 3 MLS VIA NEBULIZATION ONCE NEEDED FOR WHEEZING OR SHORTNESS OF BREATH FOR UP TO 75 DOSES What changed: Another medication with the same name was removed. Continue taking this medication, and follow the directions you see here. CONTINUE taking these medications Eliquis 5 MG tablet Generic drug: apixaban Take 1 tablet (5 mg) by mouth 2 times daily. ipratropium-albuterol 0.5-2.5 mg/3 mL nebulizer solution Commonly known as: Duo-Neb Take 3 mL by nebulization 2 times daily as needed for wheezing or shortness of breath. metoprolol succinate XL 100 MG 24 hr tablet Commonly known as: Toprol-XL TAKE 1 TABLET (100 MG) BY MOUTH IN THE MORNING AND 1 TABLET (100 MG) BEFORE BEDTIME. DO NOT CRUSH OR CHEW.. torsemide 20 MG tablet Commonly known as: Demadex Take 1 tablet (20 mg) by mouth 2 times daily. STOP taking these medications magnesium oxide 400 MG tablet Commonly known as: Mag-Ox ASK your doctor about these medications [facility] B-1 100 MG tablet Generic drug: thiamine TAKE 1 TABLET BY MOUTH EVERY DAY folic acid 1 MG tablet Commonly known as: Folvite TAKE 1 TABLET BY MOUTH ONCE DAILY IN THE MORNING Therapeutic-M/Lutein tablet TAKE 1 TABLET BY MOUTH IN THE MORNING, 1 TABLET AT NOON, AND 1 TABLET BEFORE BEDTIME Where to Get Your Medications These medications were sent to [facility]/pharmacy #[id number] [facility] [id number] [facility] [place] [address] Eliquis 5 MG tablet losartan 25 MG tablet predniSONE 50 MG tablet torsemide 20 MG tablet Follow up questions for RN/MA: 1. Did you get medications filled and taking them as instructed from discharge? 2. Are you following your discharge instructions from your hospital stay? Signed: Matt Victoria MD 11/14/2023 2:31 PM documented in this encounter [facility] 11-14-2023 Nurse Note Discharge instructions given with verbal understanding. [facility] 11-14-2023 Nurse Note Discharge instructions given with verbal understanding. documented in this encounter [facility] 11-14-2023 History of Present illness Narrative Case discussed with residents, documentation reviewed, diagnostic studies reviewed, patient independently interviewed and examined. No complaints. Ambulating without difficulty. Bowel movements normal. Denies dyspnea Temp (24hrs), Av.4 C (97.6 F), Min:36.1 C (97 F), Max:36.8 C (98.2 F) BP 116/68 (BP Location: Left arm, Patient Position: Sitting) Pulse 68 Temp 36.1 C (97 F) (Temporal) Resp 16 Ht 5' 9" (1.753 m) Wt 184 lb (83.5 kg) SpO2 95% BMI 27.17 kg/m Alert, cooperative, NAD RRR Lungs with scattered exp wheezes Abd soft Extr - No edema Lab Results Component Value Date WBC 9.0 11/14/2023 HGB 13.9 11/14/2023 HCT 41.5 11/14/2023 MCV 92.6 11/14/2023 PLT 241 11/14/2023 Lab Results Component Value Date NA 130 (L) 11/14/2023 K 3.7 11/14/2023 CL 92 (L) 11/14/2023 CO2 32 (H) 11/14/2023 BUN 25 (H) 11/14/2023 CREATININE 0.67 11/14/2023 GLUCOSE 103 (H) 11/14/2023 CALCIUM 9.3 11/14/2023 Summary of singh issues: HFrEF exacerbation - Improving. Near baselineTransitioned to po lasix. Continue metoprolol succinate and spironolactone as GDMT. Losartan added 11/11. Cardio consulted. He has Biventricular pacer/ICD. Educated patient on deleterious effect of EtOH on myocardial function. COPD - Continue home tiotropium. Supplemental oxygen and nebs prn. Prednisone burst x 5 days. Antibiotics dc'd due to negative procal. Afib - on metoprolol, apixaban. Acceptable rate control. Cardiology consulted. EtOH abuse - Monitor CIWA score with prn benzodiazepine. Vitamin supplementation. Sleep apnea - autopap at night Chronic hyponatremia likely due to #4. Monitor BMP. CAD - On statin. Does not need ASA due to apixaban use. No evidence of acute myocardial injury. Dispo - stable for dc home See resident's note for additional details. Images from the original note were not included. OCCUPATIONAL THERAPY [facility] Treatment Note Name/MRN: Krystina Markham ([id number]) Date of : 1955 Age: 68 y.o. Room/Bed: [facility] A Visit #: 1 out of 5 visits Discharge Recommendation: Home with assist PRN, Home with Home health OT Equipment Needed: No Prior Level of Function ADL Assistance: Independent Ambulation Assistance: Independent Transfer Assistance: Independent Assessment Pt was in the bathroom when PRITCHARD entered the room. Pt reports not needing assist in the bathroom and walked out of the bathroom with no device and no O2. Pt is mod I for grooming at the sink and supervision/mod I with short distance mobility in the room with no device and no LOB. Pt was 94% O2 saturation on room air after getting back to the bed. Pt denies SOB and dizziness and tolerated session well. Pt hopeful to go home today. OT recs home with [facility] OT and assist PRN. Subjective I came in because I couldn't breathe" Pain: Pt denies any current pain. Medical Precautions: Droplet Proper PPE donned/doffed in accordance with facility standards. Fall Risk: Landin Fall Risk Score: 30 (Medium Risk) Precautions/Restrictions: N/A Family/Caregiver Present: none Objective ADLs Grooming: Modified Independent, to wash his hands and brush his teeth Toileting: Pt denies needing any assist in the bathroom but this was not observed. Stood at the sink to wash his hands and was sitting EOB to comb his hair. Bed Mobility Pt in the bathroom when PRITCHARD entered the room and was left at the EOB to eat his lunch. Transfers/Mobility Stand to sit: Modified Independent Sitting balance: Independent Standing balance: Modified Independent, Supervision Functional mobility: Modified Independent, Supervision No device used. Pt walked from the bathroom > sink > bed with no device and no LOB. Pt is not on O2 and had no SOB during activity. O2 was 94% on RA after returning to the bed. Device(s) used: none Cognition - WFL Plan Continue acute OT per plan of care. Safety/Education Safety Safety Devices in place: All fall risk precautions in place, call light within reach, left in bed, no alarms engaged upon entry, and patient left sitting EOB Restraints: No Education Education Given To: patient Education Provided: OT Role, Plan of Care, ADL Adaptive Strategies, Fall Prevention Education, and Benefits of Increasing Activity Education Method: Verbal and Demonstration Barriers to Learning: None Education Outcome: Verbalized Understanding, Demonstrated Understanding, and Continued Education Needed AM-PAC AM-PAC Inpatient Daily Activity Raw Score: 22 ADL Inpatient CMS G-Code Modifier: CJ Goals Patient Stated Goal: none stated at this time. Encounter Problems Encounter Problems (Active) Dressing Upper Extremities Patient will complete upper body dressing MOD I (Not Addressed) Start: 11/12/23 Expected End: 11/19/23 Dressings Lower Extremities Patient will dress lower body MOD I (Not Addressed) Start: 11/12/23 Expected End: 11/19/23 Mobility Patient will demonstrate functional mobility with KLAUDIA and FWW (Progressing) Start: 11/12/23 Expected End: 11/19/23 Transfers Patient will complete functional transfer with rolling walker with modified independence in order to prepare for ambulation. (Progressing) Start: 11/12/23 Expected End: 11/19/23 Encounter Problems (Resolved) Toileting Patient will complete toileting tasks at standard toilet with modified independence. (Goal Met) Start: 11/12/23 Expected End: 11/19/23 Resolved: 11/14/23 Therapy Time Individual Co-treatment Time In 1128 Time Out 1140 Minutes 12 Timed Code Treatment Minutes: 11 Minutes (adl) [facility]ANCH[facility]KA [facility] Respiratory Care Department Progress Note As part of the Respiratory Assessment Program (RAP), the following Respiratory Therapist evaluation has been completed, including a chart review and clinical/physical assessment. Respiratory Therapist RAP Evaluation Guideline Points 0 1 2 3 4 Points Strongly Consider History Factor No Pulmonary conditions Stable Pulmonary condition(s) Surgery or Intervention that may impact Pulmonary system (at risk) Surgery or Intervention that is impacting Pulmonary system Active Exacerbation of Pulmonary Condition 1 Respiratory Pattern Regular, RR= 12-18 NARAYANAN or Increased RR= 19-24 Irregular, or RR= 25-30 SOB, talk in short sentences, or RR= 31-35 Severe SOB, accessory muscle use, one word answers, or RR>35 0 Aerosol Med(s), High Flow O2 Breath Sounds Clear Diminished in 1 lobe Diminished in ? 2 lobes Adventitious breath sounds Coarse crackles, Wheezes, or Diminished in >2 lobes 2 Aerosol Med(s), Bronchial Hygiene, Hyperinflation Cough & Sputum Strong cough, no secretion retention or production Weak cough, no secretion retention or production Weak cough, w/ production (less often than Q2hr), or secretion retention No cough, w/ secretion retention or production (less often than Q2hr) Significant secretion production (more often than Q2hr) or mucus plug 0 Aerosol Med(s), Bronchial Hygiene, Hyperinflation Level of Activity Ambulatory Ambulatory with Assist Up in chair or edge of bed (dangle) Non-ambulatory, bedridden with active ROM Completely paralyzed or without active ROM 0 Triage 5 0-2 Triage 4 3-5 Triage 3 6-10 Triage 2 11-14 Triage 1 ?15 Total 3 Triage Score = 4 TRIAGE SCORING - SUGGESTED FREQUENCIES Aerosol Therapy Bronchial Hygiene Hyperinflation Triage Score Q4h & PRN 1 Q4hWA (QID) & PRN 2 TID & PRN 3 BID & PRN 4 PRN 5 Therapy(s) Indicated Yes/No Aerosol Medication yes Hyperinflation Bronchial Hygiene High Flow Oxygen Flow Rates PEF (L/Sec) IVC FVC FEV1 FEV1/FVC Patient instructed and returned demonstration on use of MDI (with spacer, as appropriate) None RT to enter/modify frequency of treatment order in EMR/EHR to match this RAP evaluation. Based on this RAP evaluation the following therapy is being initiated: duoneb At the following frequency: TiD Comments: Thank you for involving Respiratory in the care of this patient, [facility] Cardiology /Electrophysiology Progress Note HPI / Interval History: Krystina Markham is a 68 y.o. 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 Today he tells me he is at baseline. He denies chest pain, palpitations, and edema. Assessment/Plan HF NYHA Class [] I [x] II [] III [] IV HFrEF. Acute on chronic. LVEF 21%. 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 -appears compensated on exam -continues on Toprol XL 100 mg twice daily, Lasix 40 mg twice daily, spironolactone 25 mg daily, and losartan 25 mg daily -Reviewed heart failure education -Close follow-up in the office in 1 to 2 weeks Atrial fibrillation. Permanent. -continues on Eliquis 5 mg bid -continues on Toprol XL as above ETOH abuse. -recommend complete cessation Cardiology Discharge/Sign-off Recommendations Cardiology followup: [x] Recommend primary service arrange f/u with patient's outpatient analytics director 1-2 wks. [x] Recommended; unable to arrange at this time, will arrange post-discharge If there are any questions/concerns, please contact the covering provider. If no answer by Secure Chat, please call the cardiology office to obtain appropriate covering BRICK POINTER/physician. Medications: apixaban, 5 mg, Oral, BID folic acid, 1 mg, Oral, Daily furosemide, 40 mg, Oral, BID ipratropium-albuterol, 3 mL, Nebulization, Q4H while awake losartan, 25 mg, Oral, Daily metoprolol succinate XL, 100 mg, Oral, BID montelukast, 10 mg, Oral, qPM nicotine, 1 patch, TransDERmal, Daily Followed by [START ON 12/24/2023] nicotine, 1 patch, TransDERmal, Daily Followed by [START ON 01/07/2024] nicotine, 1 patch, TransDERmal, Daily predniSONE, 50 mg, Oral, Daily rosuvastatin, 40 mg, Oral, Nightly sertraline, 100 mg, Oral, q AM spironolactone, 25 mg, Oral, Nightly therapeutic multivitamin-minerals, 1 tablet, Oral, Daily thiamine, 100 mg, Oral, Daily tiotropium, 2 puff, Inhalation, Daily Infusion Medications: Physical Examination: Vitals: 11/14/23 0432 11/14/23 0754 11/14/23 0917 11/14/23 1050 BP: 111/68 123/81 116/68 BP Location: Left arm Left arm Left arm Patient Position: Sitting Sitting Sitting Pulse: 69 66 72 68 Resp: 18 20 20 16 Temp: 36.1 C (97 F) 36.3 C (97.3 F) 36.1 C (97 F) TempSrc: Temporal Temporal Temporal SpO2: 95% 98% 90% 95% Weight: Height: No intake or output data in the 24 hours ending 11/14/23 1235 Wt Readings from Last 3 Encounters: 11/12/23 184 lb (83.5 kg) 01/08/23 198 lb (89.8 kg) 01/07/23 198 lb 1.6 oz (89.9 kg) Physical Exam Constitutional: NAD Psychiatric: Alert. Medical insight fair Neck: No JVD Respiratory: Lungs are clear, few wheezes, no crackles Heart: irreg ; Nl S1 and S2, no murmur, no rub, gallop Abdomen: NABS; soft, non-tender, non-distended Extremities: no LE edema Skin: Warm to touch and well perfused; blue-emilie hue to nose Laboratory Tests: Recent Labs 11/11/23204411/13/23 0517 11/14/23 0653 NA 130* 128* 130* K 4.1 3.8 3.7 CL 94* 90* 92* CO2 28 32* 32* BUN 8* 17 25* CREATININE 0.44* 0.55* 0.67 Recent Labs 11/11/23204411/13/23 0517 11/14/23 0653 WBC 13.3* 10.2 9.0 HGB 15.0 13.7 13.9 HCT 43.1 40.2 41.5 MCV 88.9 89.3 92.6 PLT 236 245 241 Recent Labs 11/11/23204411/11/23 2351 11/12/23 0329 TROPONINI 0.016 0.017 0.016 Recent Labs 11/11/23204411/14/23 0653 BNP 10,200* 9,630* No results for input(s): "TRIG", "HDL", "LDLCALC", "CHOL" in the last 72 hours. No results found for: LDLCHOLESTER Lab Results Component Value Date TSH 2.568 07/16/2022 EF BP Date Value Ref Range Status 11/12/2023 21 (A) 55 - 100 % Final 11/11/23 TRANSTHORACIC ECHOCARDIOGRAM (TTE) COMPLETE (CONTRAST/BUBBLE/3D PRN) 11/12/2023 4:32 PM (Final) Interpretation Summary Left Ventricle: Left ventricle is moderately dilated. LVIDd is 6.4 cm. Mildly increased wall thickness. Severely reduced left ventricular systolic function. EF by 2D Simpsons Biplane is 21%. Global hypokinesis present. Right Ventricle: Right ventricle is severely dilated. Pacemaker lead present in the right ventricle. Tricuspid Valve: Moderately severe (3+) regurgitation. RVSP may be underestimated in the setting of severe TR. RVSP is 47 mmHg. Left Atrium: Left atrium is severely dilated. LA Vol Index A/L is 73 mL/m2. Right Atrium: Right atrium is severely dilated. Mitral Valve: Annular dilation. Mild to moderate (1-2+) regurgitation. IVC is severely dilated. IVC diameter is dilated and decreases less than 50% during inspiration; therefore the estimated right atrial pressure is elevated (~15 mmHg). Signed by: Tonya Rosales MD on 11/12/2023 4:32 PM Other reports reviewed: Cardiac Tests: ECG: Tracing reviewed. Telemetry findings reviewed: permanent A fib, 80s, occ pacer spikes EF BP Date Value Ref Range Status 11/12/2023 21 (A) 55 - 100 % Final PRIYA Rachel CNP Date Of Service 11/14/2023 Nutrition rescreen complete. Pt assigned a level one for nutrition care. [facility] Respiratory Care Department Progress Note Comment or reasoning for refusal: Patient was seen in attempts to fulfill CPAP/BiPAP/AutoPAP order. Patient refused PAP therapy/study at this time. Patient was educated on medical need and reasoning for physician order to ensure patient was making an informed medical decision. All of the patient's questions were answered at this time and patient was informed that if the patient changes their mind regarding wearing PAP to hit their "call light" or inform their nurse to contact Respiratory. A second, consecutive night of refusing PAP therapy/study results in order completion in the EMR. If future CPAP/BiPAP/AutoPAP therapy or study is indicated please place another order in the EMR and the assigned Respiratory Therapist will reattempt to fulfill orders. Reason for refusal: Doesn't want it and doesn't know why it is in his room Thank you for involving Respiratory in the care of this patient, Case discussed with residents, documentation reviewed, diagnostic studies reviewed, patient independently interviewed and examined. Dyspnea is improving, near baseline. Temp (24hrs), Av.6 C (97.8 F), Min:36.6 C (97.8 F), Max:36.6 C (97.9 F) BP 122/80 Pulse 88 Temp 36.6 C (97.9 F) (Temporal) Resp 12 Ht 5' 9" (1.753 m) Wt 184 lb (83.5 kg) SpO2 91% BMI 27.17 kg/m Alert, cooperative, NAD Heart irregularly irregular Lungs with good air entry, faint end-exp wheezes Abd soft Extr - 1+ edema Lab Results Component Value Date WBC 10.2 11/13/2023 HGB 13.7 11/13/2023 HCT 40.2 11/13/2023 MCV 89.3 11/13/2023 PLT 245 11/13/2023 Lab Results Component Value Date NA 128 (L) 11/13/2023 K 3.8 11/13/2023 CL 90 (L) 11/13/2023 CO2 32 (H) 11/13/2023 BUN 17 11/13/2023 CREATININE 0.55 (L) 11/13/2023 GLUCOSE 146 (H) 11/13/2023 CALCIUM 9.0 11/13/2023 Echo - EF relatively unchanged at 21% Summary of singh issues: HFrEF exacerbation - Improving. Transitioned to po lasix. Continue metoprolol succinate and spironolactone as GDMT. Losartan added yesterday. Cardio consulted. He has Biventricular pacer/ICD. COPD - Continue home tiotropium. Supplemental oxygen and nebs prn. Prednisone burst x 5 days. Antibiotics dc'd due to negative procal. Afib - on metoprolol, apixaban. Acceptable rate control. Cardiology consulted. EtOH abuse - Monitor CIWA score with prn benzodiazepine. Vitamin supplementation. Sleep apnea - autopap at night Chronic hyponatremia likely due to #4. Monitor BMP. CAD - On statin. Does not need ASA due to apixaban use. No evidence of acute myocardial injury. See resident's note for additional details. CARDIOLOGY PROGRESS NOTE Chart and interval events reviewed. Reason for Visit acute shortness of breath SUBJECTIVE: Krystina Markham states he is feeling much better today. States that breathing is best to baseline. Denies chest pain. Discussed results of ECHO. Repeat echo is largely unchanged from 2021. I/O not accurately charted. No change in weight. Received Lasix 40 mg IV this am. Skin lesions are very itchy. IMPRESSIONS/RECOMMENDATIONS: Heart failure with reduced ejection fraction- EF is ~ 20%. Continue Toprol XL 100 mg BID, Aldactone 25 mg daily. Continue Crestor. Losartan 25 mg daily. Transition to Lasix 40 mg PO twice daily. Daily I/O charting. Daily weights. Check BMP daily. ECHO unchanged. Permanent AF- remains in AF, rate controlled. Continue Metoprolol XL and Eliquis. ETOH abuse- DT precautions. Skin rash ? SCHEDULED MEDICATIONS: apixaban, 5 mg, Oral, BID folic acid, 1 mg, Oral, Daily furosemide, 40 mg, IntraVENous, BID ipratropium-albuterol, 3 mL, Nebulization, Q4H while awake losartan, 25 mg, Oral, Daily metoprolol succinate XL, 100 mg, Oral, BID montelukast, 10 mg, Oral, qPM nicotine, 1 patch, TransDERmal, Daily Followed by [START ON 12/24/2023] nicotine, 1 patch, TransDERmal, Daily Followed by [START ON 01/07/2024] nicotine, 1 patch, TransDERmal, Daily predniSONE, 50 mg, Oral, Daily rosuvastatin, 40 mg, Oral, Nightly sertraline, 100 mg, Oral, q AM spironolactone, 25 mg, Oral, Nightly therapeutic multivitamin-minerals, 1 tablet, Oral, Daily thiamine, 100 mg, Oral, Daily tiotropium, 2 puff, Inhalation, Daily Principal Problem: Acute exacerbation of CHF (congestive heart failure) ([facility]) Active Problems: Tobacco abuse Presence of implantable cardioverter-defibrillator (ICD) Alcohol abuse COPD exacerbation ([facility]) Medical non-compliance Paroxysmal atrial fibrillation (HCC) Cor, pulmonale, acute (CMS/HCC) ([facility]) Chronic hyponatremia Essential hypertension COPD (chronic obstructive pulmonary disease) ([facility]) HFrEF (heart failure with reduced ejection fraction) ([facility]) Review of Systems: Review of Systems Constitutional: Negative. HENT: Negative. Eyes: Negative. Respiratory: Negative. Cardiovascular: Negative. Gastrointestinal: Negative. Endocrine: Negative. Genitourinary: Negative. Musculoskeletal: Negative. Skin: Positive for rash. Allergic/Immunologic: Negative. Neurological: Negative. Hematological: Negative. Psychiatric/Behavioral: Negative. VITAL SIGNS: Vitals: 11/12/23 2300 11/13/23 0250 11/13/23 0710 11/13/23 0900 BP: 123/80 118/82 122/80 BP Location: Patient Position: Pulse: 71 63 72 80 Resp: 18 16 26 Temp: 36.6 C (97.8 F) 36.6 C (97.9 F) TempSrc: Temporal Temporal SpO2: 90% 91% Weight: Height: Intake/Output Summary (Last 24 hours) at 11/13/2023 0923 Last data filed at 11/13/2023 0522 Gross per 24 hour Intake 1775 ml Output 400 ml Net 1375 ml @[id number]@ Physical Exam: Physical Exam Constitutional: General: He is not in acute distress. Appearance: He is normal weight. He is not ill-appearing. HENT: Head: Normocephalic. Nose: No congestion or rhinorrhea. Mouth/Throat: Pharynx: No oropharyngeal exudate. Eyes: General: No scleral icterus. Extraocular Movements: Extraocular movements intact. Pupils: Pupils are equal, round, and reactive to light. Neck: Vascular: No carotid bruit. Cardiovascular: Rate and Rhythm: Normal rate and regular rhythm. Heart sounds: Normal heart sounds. No murmur heard. No friction rub. No gallop. Pulmonary: Effort: Pulmonary effort is normal. No respiratory distress. Breath sounds: Normal breath sounds. No wheezing or rales. Abdominal: General: Abdomen is flat. There is no distension. Palpations: Abdomen is soft. Musculoskeletal: Cervical back: Neck supple. No tenderness. Right lower leg: No edema. Left lower leg: No edema. Skin: General: Skin is warm and dry. Capillary Refill: Capillary refill takes less than 2 seconds. Coloration: Skin is not jaundiced. Findings: Rash present. No lesion. Neurological: Mental Status: He is alert and oriented to person, place, and time. Data: Scheduled Meds: Reviewed Continuous Infusions: CBC: Recent Labs 11/11/23204411/13/23 0517 WBC 13.3* 10.2 HGB 15.0 13.7 HCT 43.1 40.2 PLT 236 245 BMP: Recent Labs 11/11/23204411/13/23 05 NA 130* 128* K 4.1 3.8 CL 94* 90* CO2 28 32* BUN 8* 17 CREATININE 0.44* 0.55* INR:No results for input(s): "INR" in the last 72 hours. Recent Labs 11/11/232044 BNP 10,200* TSH: Lab Results Component Value Date TSH 2.568 07/16/2022 Cardiac Injury Profile: Recent Labs 11/11/23204411/11/23 2351 11/12/23 0329 TROPONINI 0.016 0.017 0.016 Lipid Profile: No results found for: "TRIG", "HDL", "LDLCALC", CHOL EKG: See Report Telemetry Reviewed: Echo: 11/12/23 Interpretation Summary Left Ventricle: Left ventricle is moderately dilated. LVIDd is 6.4 cm. Mildly increased wall thickness. Severely reduced left ventricular systolic function. EF by 2D Simpsons Biplane is 21%. Global hypokinesis present. Right Ventricle: Right ventricle is severely dilated. Pacemaker lead present in the right ventricle. Tricuspid Valve: Moderately severe (3+) regurgitation. RVSP may be underestimated in the setting of severe TR. RVSP is 47 mmHg. Left Atrium: Left atrium is severely dilated. LA Vol Index A/L is 73 mL/m2. Right Atrium: Right atrium is severely dilated. Mitral Valve: Annular dilation. Mild to moderate (1-2+) regurgitation. IVC is severely dilated. IVC diameter is dilated and decreases less than 50% during inspiration; therefore the estimated right atrial pressure is elevated (~15 mmHg). ECHO 07/19/22 Interpretation Summary Left Ventricle: Left ventricle is moderately dilated. Mildly increased wall thickness. Severely reduced left ventricular systolic function. The EF by visual approximation is 25%. Global longitudinal strain is reduced. Severe global hypokinesis present. Indeterminate diastolic function due to atrial fibrillation. Right Ventricle: Right ventricle size is normal. Pacemaker lead present in the right ventricle. Moderately reduced systolic function. TAPSE is abnormal. TDI systolic excursion is abnormal. Mitral Valve: Mild (1+) regurgitation. Gene Type IIIb: Restricted leaflet motion in systole. Tricuspid Valve: Mild to moderate (1-2+) regurgitation. Moderately elevated RVSP. RVSP is 52 mmHg. Pulmonary Arteries: Pulmonary hypertension present. IVC/SVC: IVC is dilated. IVC diameter is dilated and decreases less than 50% during inspiration; therefore the estimated right atrial pressure is elevated (~15 mmHg). Electronicallysigned by Kristin Maynard MD on 11/13/2023 at 9:23 AM Images from the original note were not included. Medical Teaching Service Progress Note Patient: Krystina Markham : 1955 Acct: [id number] PCP: JAMIA SIERRA MD Admitting Physician: Siria Dumont MD Admission Date: 11/11/2023 Admitting Diagnosis: COPD exacerbation (HCC) [J44.1] Unit/Bed: 07/13 Hospital Day: 1 Code Status: Full Code Subjective: Overnight events: No significant overnight events. Patient on room air saturating appropriately. Denies SOB this morning. Plan to switch IV lasix to PO Hospital Course Krystina Markham is a 68 y.o. male presented with dyspnea 2/2 to acute on chronic CHF with a PMHx of COPD (reports PRN oxygen at home), cor pulmonale, alcohol abuse, DELORES. CXR demonstrated some pulmonary congestion which improved after receiving IV lasix. Switched to PO lasix Objective: Vitals: 11/12/23 2251 11/12/23 2300 11/13/23 0250 11/13/23 0710 BP: 136/86 123/80 118/82 BP Location: Patient Position: Pulse: 90 71 63 72 Resp: 18 18 16 Temp: 36.6 C (97.8 F) 36.6 C (97.8 F) 36.6 C (97.9 F) TempSrc: Temporal Temporal Temporal SpO2: 96% 90% 91% Weight: Height: Temp (24hrs), Av.6 C (97.8 F), Min:36.6 C (97.8 F), Max:36.6 C (97.9 F) Intake/Output Summary (Last 24 hours) at 11/13/2023 0814 Last data filed at 11/13/2023 0522 Gross per 24 hour Intake 1775 ml Output 400 ml Net 1375 ml Physical Exam Constitutional: Appearance: Normal appearance. HENT: Head: Normocephalic and atraumatic. Mouth/Throat: Mouth: Mucous membranes are moist. Eyes: Extraocular Movements: Extraocular movements intact. Pupils: Pupils are equal, round, and reactive to light. Cardiovascular: Rate and Rhythm: Normal rate and regular rhythm. Heart sounds: Normal heart sounds. Pulmonary: Effort: Pulmonary effort is normal. Breath sounds: Normal breath sounds. Abdominal: General: Abdomen is flat. Bowel sounds are normal. Palpations: Abdomen is soft. Musculoskeletal: Cervical back: Normal range of motion and neck supple. Right lower leg: Edema (trace shins) present. Left lower leg: Edema (trace shins) present. 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 Comments: Bluish to purple discoloration of bilateral fingers Neurological: Mental Status: He is alert. Psychiatric: Mood and Affect: Mood normal. Behavior: Behavior normal. Polanco: No Drains: No Central Line/Port: No Intubated: No Diet: Adult diet Regular; Low Fat/Low Chol/High Fiber/2 gm Na Medications: apixaban, 5 mg, Oral, BID folic acid, 1 mg, Oral, Daily furosemide, 40 mg, IntraVENous, BID ipratropium-albuterol, 3 mL, Nebulization, Q4H while awake losartan, 25 mg, Oral, Daily metoprolol succinate XL, 100 mg, Oral, BID montelukast, 10 mg, Oral, qPM nicotine, 1 patch, TransDERmal, Daily Followed by [START ON 12/24/2023] nicotine, 1 patch, TransDERmal, Daily Followed by [START ON 01/07/2024] nicotine, 1 patch, TransDERmal, Daily predniSONE, 50 mg, Oral, Daily rosuvastatin, 40 mg, Oral, Nightly sertraline, 100 mg, Oral, q AM spironolactone, 25 mg, Oral, Nightly therapeutic multivitamin-minerals, 1 tablet, Oral, Daily thiamine, 100 mg, Oral, Daily tiotropium, 2 puff, Inhalation, Daily Continuous Infusions: PRN Meds: PRN medications: acetaminophen OR acetaminophen, ipratropium-albuterol, LORazepam OR LORazepam OR LORazepam OR LORazepam OR LORazepam OR LORazepam OR LORazepam OR LORazepam, polyethylene glycol (PEG) 3350, promethazine OR promethazine OR promethazine Labs: CBC: Results from last 7 days Lab Units 11/13/23 0517 11/11/23 2045 WBC AUTO 10*3/uL 10.2 13.3* HEMOGLOBIN g/dL 13.7 15.0 HEMATOCRIT % 40.2 43.1 PLATELETS AUTO 10*3/uL 245 236 NEUTROS PCT AUTO % 77.1 -- LYMPHS PCT AUTO % 10.8* -- MONOS PCT AUTO % 9.9 -- EOS PCT AUTO % 0.5 -- BMP: Results from last 7 days Lab Units 11/13/23 0517 11/11/23 2045 SODIUM mmol/L 128* 130* POTASSIUM mmol/L 3.8 4.1 CHLORIDE mmol/L 90* 94* CO2 mmol/L 32* 28 BUN mg/dL 17 8* CREATININE mg/dL 0.55* 0.44* GLUCOSE mg/dL 146* 104* CALCIUM mg/dL 9.0 9.6 LIVER PROFILE: Results from last 7 days Lab Units 11/13/23 0517 ALK PHOS U/L 124 BILIRUBIN TOTAL mg/dL 0.8 PROTEIN TOTAL g/dL 6.7 ALT U/L 23 AST U/L 41 PT/INR: CARDIAC ENZYMES: Results from last 7 days Lab Units 11/12/23 0329 11/11/23 2351 11/11/23 204 TROPONIN I ng/mL 0.016 0.017 0.016 Procalcitonin: Lab Results Component Value Date PROCAL 0.18 (H) 11/11/2023 Glucose: ASSESSMENT/PLAN: Patient Active Problem List Diagnosis Date Noted Acute exacerbation of CHF (congestive heart failure) ([facility]) 11/12/2023 Medical non-compliance 11/12/2023 Anemia in other chronic diseases classified elsewhere 01/01/2023 Closed fracture of neck of left humerus with routine healing 12/31/2022 COPD exacerbation ([facility]) 09/13/2022 Alcohol abuse 07/28/2022 Presence of implantable cardioverter-defibrillator (ICD) 07/19/2022 Chest pain, unspecified type 07/17/2022 Hypochloremia 07/17/2022 Tobacco abuse 07/17/2022 HFrEF (heart failure with reduced ejection fraction) ([facility]) 07/17/2022 Paroxysmal atrial fibrillation ([facility]) 08/25/2021 History of rib fracture 08/25/2021 Chronic hyponatremia 08/25/2021 Essential hypertension 08/25/2021 COPD (chronic obstructive pulmonary disease) (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 SOB 2/2 Acute on CHFrEFe with biventricular ICD implantation in 2019 Hx of cor pulmonale Patient has an ejection fraction of 25% per echo in July 2022. Severe global hypokinesis present. Mild to moderate right-sided systolic dysfunction. ICD check last performed on 10/02/2023: normal device fxn, afib ; elevated BNP 10K; PFT 2019 consistent with moderate small airway obstruction and emphysema. Procal 0.18. Resp PCR, UAG negative - admit to tele - Lasix 40mg BID PO - resume home spironolactone 25mg daily - Losartan started 25mg daily - patient used to be on entresto high dose and torsemide 20mg BID, no documentation on why it was discontinued, follow up with cardio recs - echo - cardiology consult - PT/OT -SW/CM COPD - montelukast 10mg - Home inhalers: spriva - duoneb q4 hours and PRN - prednisone 50mg burst - Supplemental O2 Therapy, SpO2 goal 88-92% - PNA PCR - Prevention: Smoking cessation discussed and encouraged. - nicotine patch Permanent A-fib with ICD device -Continue home medications -Eliquis 5 mg twice daily -Metoprolol succinate 100 mg twice daily CAD - continue home atorvastatin 40mg nightly Prolong QTC - avoid QTC prolonging agents 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 - monitor Na - folic acid, thiamine - multivitamin - ETOH and Ethyl gluconride - MAT - CIWA and PRN ativan if CIWA >8 Obstructive sleep apnea -AutoPap Depression -resume Zoloft 100 mg daily Hx of poor medical compliance FEN/GI/DVT: IVF: None Electrolytes: Monitor and replace per protocols Diet: Cardiac GI PPX: No DVT Prophylaxis: No prophylaxis/Already on anticoagulation: eliquis Telemetry: Currently on Telemetry / Reason: CHF DISPOSITION: Plan for possible discharge tomorrow Images from the original note were not included. PHYSICAL THERAPY [facility] Initial Evaluation Name/MRN: Krystina Markham ([id number]) Evaluation Date: 11/12/2023 Date of : 1955 Admission Date: 11/11/2023 8:32 PM Age: 68 y.o. Room/Bed: 07/13 Discharge Recommendation: Home with assist PRN, Home with Home health PT Equipment Needed: No Assessment IMPRESSION: Pt presents with decreased functional mobility, decreased strength, decreased safety awareness, decreased endurance and impaired balance. Pt has decreased standing balance requiring 1 person for safety at this time placing him at an increased risk of falling. Pt could benefit from continued PT in order to address his decreased functional mobility, strength, balance and safety. Pt has medical history as indicated below that contributes to his clinical presentation. At baseline patient is functionally independent with no device. Currently patient is CGA with no device and is anticipated to progress with acute therapies and medical management in order to return home with assist and [facility] PT. Diagnosis: Pt admitted on 11/10 with c/o COPD exacerbation, SOB, and HFrEF. Prognosis: good Performance Deficits /Impairments: Decreased Functional Mobility, Decreased Strength, Decreased Safety Awareness, Decreased Endurance, and Decreased Balance Decision Making: Medium Complexity Subjective Patient pleasant and agreeable to therapy session this date. Per RN patient okay for therapy. Co-eval with OT. Observation: 2L O2, ED tele Vitals SpO2 85-98% on 2L O2 Pain: Pt denies any current pain. Past Medical History: Past Medical History: Diagnosis Date Alcohol consumption heavy 09/10/2015 Asthma Atrial fibrillation (HCC) CHF (congestive heart failure) (HCC) 01/31/2016 COPD (chronic obstructive pulmonary disease) (HCC) 09/10/2015 Cor, pulmonale, acute (CMS/HCC) (HCC) Deep venous thrombosis (HCC) 02/2016 Depression Hx of blood clots Obesity 09/10/2015 DELORES (obstructive sleep apnea) Pulmonary embolus ([facility]) 6 16 Raynaud phenomenon 09/10/2015 Smoker 09/10/2015 Past Surgical History: Past Surgical History: Procedure Laterality Date ABDOMINAL SURGERY BRONCHOSCOPY 02/25/2020 BRONCHOSCOPY (HISTORICAL) 02/25/2020 COLONOSCOPY 10/27/[address] CHEST ANGIOGRAM W AND/OR WO IV CONTRAST 07/12/2022 CT CHEST ANGIOGRAM W AND/OR WO IV CONTRAST 07/12/2022 [facility] CT IMAGING FINGER AMPUTATION Left HERNIA REPAIR NOSE SURGERY Admission Diagnosis: Patient Active Problem List Diagnosis Date Noted Acute exacerbation of CHF (congestive heart failure) ([facility]) 11/12/2023 Medical non-compliance 11/12/2023 Anemia in other chronic diseases classified elsewhere 01/01/2023 Closed fracture of neck of left humerus with routine healing 12/31/2022 COPD exacerbation ([facility]) 09/13/2022 Alcohol abuse 07/28/2022 Presence of implantable cardioverter-defibrillator (ICD) 07/19/2022 Chest pain, unspecified type 07/17/2022 Hypochloremia 07/17/2022 Tobacco abuse 07/17/2022 HFrEF (heart failure with reduced ejection fraction) ([facility]) 07/17/2022 Paroxysmal atrial fibrillation ([facility]) 08/25/2021 History of rib fracture 08/25/2021 Chronic hyponatremia 08/25/2021 Essential hypertension 08/25/2021 COPD (chronic obstructive pulmonary disease) (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) 04/10/2017 Cor, pulmonale, acute (CMS/HCC) ([facility]) 02/01/2016 Raynaud phenomenon 09/10/2015 Medical Precautions: Droplet Proper PPE donned/doffed in accordance with facility standards. Fall Risk: Landin Fall Risk Score: 45 (High Risk) Precautions/Restrictions: N/A Family/Caregiver Present: none Overall Cognitive Status: WFL Overall Orientation Status: Oriented x4 Vision: no visual deficits Hearing: normal Social/Functional History Patient admitted from home. Lives With: Alone Type of Home: apartment Home Layout: Single Level Home Home Access: Level Entry Bathroom Shower/Tub: Tub/Shower Combo, Shower Chair with Back, and Grab Bars Toilet: Standard Home Equipment: none Homemaking Responsibilities: Independent Receives Help From: None Active Food Services Director: Yes Prior Level of Function ADL Assistance: Independent Ambulation Assistance: Independent Device(s) used: none Transfer Assistance: Independent Objective Lower Extremity Assessment AROM: WFL Strength: WFL - generalized weakness noted Bed Mobility: NT - pt sitting EOB pre/post session Transfers Sit to stand: Contact Guard, to no device from EOB Stand to sit: Contact Guard Denies dizziness on initial stance. No true LOB or instability noted. Ambulation Ambulation 1 Assistive device(s) used: none and oxygen Assist level: Contact Guard Distance (ft): 150 ft x 1 Quality of gait: No LOB, reciprocal stepping, B foot clearance, equal step length, slow luiza, postural sway, path deviations SpO2 noted to desat with activity to 85% on 2L O2 Cueing provided for pursed lip breathing improving to 87% during activity. Required return to sitting to recover > 92% within 1 minute. Outcome Measures AM-PAC How much HELP from another person do you currently need Turning from your back to your side while in a flat bed without using bedrails?: A Little Moving from lying on your back to sitting on the side of a flat bed without using bedrails?: A Little Moving to and from a bed to a chair (including a wheelchair)?: A Little Standing up from a chair using your arms (wheelchair or bedside chair)?: A Little Walking in a hospital room?: A Little Stair climbing assessed?: No AM-PAC Inpatient Mobility Raw Score (No Stairs) : 15 Plan Pt would benefit from skilled acute PT services to address Strengthening, Balance Training, Functional Mobility Training, Endurance Training, Gait Training, Neuromuscular Re-Education Training, Safety Education and Training, Patient/Caregiver Training, and Equipment Evaluation/Education. Frequency: 5 visits Barriers: Decreased endurance Safety/Education Safety Safety Devices in place: All fall risk precautions in place, call light within reach, left in bed, gait belt, patient at risk for falls, nurse notified, no alarms engaged upon entry, and patient left sitting EOB Restraints: N/A Education Education Given To: patient Education Provided: PT Role, PT Goals, Gait Training, Plan of Care, Precautions, Transfer Training, Energy Conservation, Fall Prevention Education, Discharge Recommendations, Benefits of Increasing Activity, and Breathing Techniques Education Method: Verbal, Demonstration, and Teach Back Barriers to Learning: None Education Outcome: Verbalized Understanding, Demonstrated Understanding, and Continued Education Needed Goals Patient Stated Goal: Patient states he wants to get home. Encounter Problems Encounter Problems (Active) Balance Patient will maintain dynamic standing balance for 5 minutes with modified independence in order to demonstrate decreased risk of falling. Start: 11/12/23 Expected End: 11/19/23 Exercise Patient will complete lower extremity exercises for 1-2 sets / 10 reps in order to improve strength and activity tolerance for mobility. Start: 11/12/23 Expected End: 11/19/23 Mobility Patient will ambulate 100 feet with modified independence and least restrictive device in order to improve safety and independence with mobility. Start: 11/12/23 Expected End: 11/19/23 Transfers Patient will perform bed mobility with modified independence in order to improve independence and prepare for out of bed mobility. Start: 11/12/23 Expected End: 11/19/23 Patient will complete functional transfers with least restrictive device with modified independence in order to prepare for ambulation. Start: 11/12/23 Expected End: 11/19/23 Therapy Time Individual Co-treatment Time In 1057 Time Out 1114 Minutes 17 Nia Eubanks PT Patient's Physical Therapy Plan of Care supervision is transferred to a [facility] Physical Therapist. Goals and/or treatment plan was established in collaboration with patient/family/other representatives. Images from the original note were not included. OCCUPATIONAL THERAPY [facility] Initial Evaluation Name/MRN: Krystina Markham ([id number]) Evaluation Date: 11/12/2023 Date of : 1955 Admission Date: 11/11/2023 8:32 PM Age: 68 y.o. Room/Bed: 07/13 Discharge Recommendation: Home with assist PRN, Home with Home health OT Equipment Needed: No Assessment IMPRESSION: Pt in 11/10 with c/o COPD exacerbation, SOB, and HFrEF. He was previously IND for ADLs, IADLs and functional transfers / mobility without a device. He is currently CGA - SBA for transfers / mobility and ADLs this date. He is limited by increased instabiltiy and fatigue this date for participation in OOB activity. SpO2 noted to desat during activity to 85% on 2L O2 n.c., however recovers quickly with seated rest. He would benefit from skilled OT services to address the below. Recommend planned discharge for [facility] OT with assist PRN. Performance Deficits /Impairments: Decreased Functional Mobility, Decreased ADL status, Decreased Endurance, Decreased Balance, and Decreased High Level IADLs Prognosis: Good Decision Making: Medium Complexity Subjective Pleasant and cooperative. OK to see per RN. 2L O2 n.c. Pain: Pt denies any current pain. Past Medical History: Past Medical History: Diagnosis Date Alcohol consumption heavy 09/10/2015 Asthma Atrial fibrillation ([facility]) CHF (congestive heart failure) ([facility]) 01/31/2016 COPD (chronic obstructive pulmonary disease) ([facility]) 09/10/2015 Cor, pulmonale, acute (CMS/HCC) ([facility]) Deep venous thrombosis ([facility]) 02/2016 Depression Hx of blood clots Obesity 09/10/2015 DELORES (obstructive sleep apnea) Pulmonary embolus ([facility]) 6 16 Raynaud phenomenon 09/10/2015 Smoker 09/10/2015 Past Surgical History: Past Surgical History: Procedure Laterality Date ABDOMINAL SURGERY BRONCHOSCOPY 02/25/2020 BRONCHOSCOPY (HISTORICAL) 02/25/2020 COLONOSCOPY 10/27/[address] CHEST ANGIOGRAM W AND/OR WO IV CONTRAST 07/12/2022 CT CHEST ANGIOGRAM W AND/OR WO IV CONTRAST 07/12/2022 [facility] CT IMAGING FINGER AMPUTATION Left HERNIA REPAIR NOSE SURGERY Admission Diagnosis: Patient Active Problem List Diagnosis Date Noted Acute exacerbation of CHF (congestive heart failure) ([facility]) 11/12/2023 Medical non-compliance 11/12/2023 Anemia in other chronic diseases classified elsewhere 01/01/2023 Closed fracture of neck of left humerus with routine healing 12/31/2022 COPD exacerbation ([facility]) 09/13/2022 Alcohol abuse 07/28/2022 Presence of implantable cardioverter-defibrillator (ICD) 07/19/2022 Chest pain, unspecified type 07/17/2022 Hypochloremia 07/17/2022 Tobacco abuse 07/17/2022 HFrEF (heart failure with reduced ejection fraction) ([facility]) 07/17/2022 Paroxysmal atrial fibrillation ([facility]) 08/25/2021 History of rib fracture 08/25/2021 Chronic hyponatremia 08/25/2021 Essential hypertension 08/25/2021 COPD (chronic obstructive pulmonary disease) (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) 04/10/2017 Cor, pulmonale, acute ([facility]/HCC) ([facility]) 02/01/2016 Raynaud phenomenon 09/10/2015 Medical Precautions: Droplet Proper PPE donned/doffed in accordance with facility standards. Fall Risk: Landin Fall Risk Score: 45 (High Risk) Precautions/Restrictions: N/A Family/Caregiver Present: none Overall Cognitive Status: WNL Overall Orientation Status: Oriented x4 Social/Functional History Patient admitted from home. Lives With: Alone Type of Home: apartment Home Layout: Single Level Home Home Access: Level Entry Bathroom Shower/Tub: Tub/Shower Combo, Shower Chair with Back, and Grab Bars Toilet: Standard Home Equipment: none Homemaking Responsibilities: Independent Receives Help From: None Active Food Services Director: Yes Prior Level of Function ADL Assistance: Independent Ambulation Assistance: Independent Transfer Assistance: Independent Objective ADLs LE Dressing: Contact Guard Pt was rm to don christine shoes seated at EOB without physical assist. Mild instability noted in standing with occasional use of environmental supports at this time for stabiltiy. He demos good functional reach and strength this date, however SpO2 noted to desat with short functional activity. He would require seated rest breaks for participation in ADL tasks. He was able to adjust his pants and buckle in standing with SBA / CGA fluctuating this date. Based on his observed functional ability, anticipate that he would require SBA for UB ADLs and CGA fo rLB ADLs. Upper Extremity Assessment AROM: Exceptions: ~ 90 BUE shoulder flexion functionally observed. PROM: Not assessed this session Strength: Exceptions: > +3/5 grossly observed with functional activity. Vision: no visual deficits Hearing: normal Bed Mobility Pt seated up at EOB pre / post session. SpO2 Noted to be WFL throughout session. Transfers/Functional Mobility Sit to stand: Contact Guard Stand to sit: SBA Sitting balance: SBA Standing balance: SBA, Contact Guard Functional mobility: SBA, Contact Guard Pt completed sit<>stand from EOB to no device with CGA - SBA. No c/o dizziness with positional changes. He was able to complete functional home distances with CGA - SBA fluctuating this date with increased time. No true LOB noted. SpO2 noted to desat with activity to 85% on 2L O2 n.c.. Cueing provided for pursed lip breathing improving to 87% during activity. Required return to sitting to recover > 92% within 1 minute. He demos no true LOB with OOB activity, hwoever mild instability noted throughout. No use of AE at this time. Device(s) used: none AM-PAC AM-PAC Inpatient Daily Activity Raw Score: 19 ADL Inpatient CMS G-Code Modifier: CK Plan Pt would benefit from skilled acute OT services to address Strengthening, Balance Training, Functional Mobility Training, Endurance Training, Safety Education and Training, Patient/Caregiver Training, Equipment Evaluation/Education, Self-Care/ADL Training, and Home Management Training. Frequency: 5 visits during current hospital admission or until additional recommendations are made Barriers: Limited participation, Decreased endurance, and Lower extremity weakness Prognosis: good Safety/Education Safety Safety Devices in place: All fall risk precautions in place, call light within reach, gait belt, patient at risk for falls, nurse notified, no alarms engaged upon entry, and patient left sitting EOB Restraints: No Education Education Given To: patient Education Provided: OT Role, Plan of Care, ADL Adaptive Strategies, Transfer Training, Fall Prevention Education, Discharge Recommendations, and Benefits of Increasing Activity Education Method: Verbal and Demonstration Barriers to Learning: None Education Outcome: Verbalized Understanding and Demonstrated Understanding Goals Patient Stated Goal: none stated at this time. Encounter Problems Encounter Problems (Active) Dressing Upper Extremities Patient will complete upper body dressing MOD I Start: 11/12/23 Expected End: 11/19/23 Dressings Lower Extremities Patient will dress lower body MOD I Start: 11/12/23 Expected End: 11/19/23 Mobility Patient will demonstrate functional mobility with LKAUDIA and FWW Start: 11/12/23 Expected End: 11/19/23 Toileting Patient will complete toileting tasks at standard toilet with modified independence. Start: 11/12/23 Expected End: 11/19/23 Transfers Patient will complete functional transfer with rolling walker with modified independence in order to prepare for ambulation. Start: 11/12/23 Expected End: 11/19/23 Therapy Time Individual Co-treatment Time In 1057 Time Out 1114 Minutes 17 Kenneth Hand OT Patient's Occupational Therapy Plan of Care supervision is transferred to a [facility] Occupational Therapist. Goals and/or treatment plan was established in collaboration with patient/family/other representatives. Images from the original note were not included. Medical Teaching Service Progress Note Patient: Krystina Markham : 1955 Acct: [id number] PCP: JAMIA SIERRA MD Admitting Physician: Siria Dumont MD Admission Date: 11/11/2023 Admitting Diagnosis: COPD exacerbation (HCC) [J44.1] Unit/Bed: 07/13 Hospital Day: 0 Code Status: Full Code Subjective: Overnight events: No significant overnight events. Patient reports persistence of SOB. Saturating appropriately on 2L Hospital Course Krystina Markham is a 68 y.o. male presented with dyspnea 2/2 to acute on chronic CHF with a PMHx of COPD (reports PRN oxygen at home), cor pulmonale, alcohol abuse, DELORES. CXR demonstrated some pulmonary congestion which appeared to improve after receiving IV lasix Objective: Vitals: 11/12/23 0334 11/12/23 0500 11/12/23 0700 11/12/23 0736 BP: 132/79 130/80 (!) 145/68 Pulse: 92 87 68 102 Resp: 16 21 15 23 Temp: TempSrc: SpO2: 93% 92% 94% Weight: Height: Temp (24hrs), Av.8 C (98.2 F), Min:36.8 C (98.2 F), Max:36.8 C (98.2 F) Intake/Output Summary (Last 24 hours) at 11/12/2023 0901 Last data filed at 11/12/2023 0333 Gross per 24 hour Intake 300 ml Output 2200 ml Net -1900 ml Physical Exam Constitutional: Appearance: Normal appearance. HENT: Head: Normocephalic and atraumatic. Mouth/Throat: Mouth: Mucous membranes are moist. Eyes: Extraocular Movements: Extraocular movements intact. Pupils: Pupils are equal, round, and reactive to light. Cardiovascular: Rate and Rhythm: Normal rate and regular rhythm. Heart sounds: Normal heart sounds. Pulmonary: Effort: Pulmonary effort is normal. Breath sounds: Normal breath sounds. Abdominal: General: Abdomen is flat. Bowel sounds are normal. Palpations: Abdomen is soft. Musculoskeletal: Cervical back: Normal range of motion and neck supple. Right lower leg: Edema (trace shins) present. Left lower leg: Edema (trace shins) present. 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 Comments: Bluish to purple discoloration of bilateral fingers Neurological: Mental Status: He is alert. Psychiatric: Mood and Affect: Mood normal. Behavior: Behavior normal. Polanco: No Drains: No Central Line/Port: No Intubated: No Diet: Adult diet Regular; Low Fat/Low Chol/High Fiber/2 gm Na Medications: apixaban, 5 mg, Oral, BID folic acid, 1 mg, Oral, Daily furosemide, 40 mg, IntraVENous, BID ipratropium-albuterol, 3 mL, Nebulization, Q4H while awake metoprolol succinate XL, 100 mg, Oral, BID montelukast, 10 mg, Oral, qPM nicotine, 1 patch, TransDERmal, Daily Followed by [START ON 12/24/2023] nicotine, 1 patch, TransDERmal, Daily Followed by [START ON 01/07/2024] nicotine, 1 patch, TransDERmal, Daily predniSONE, 50 mg, Oral, Daily rosuvastatin, 40 mg, Oral, Nightly sertraline, 100 mg, Oral, q AM spironolactone, 25 mg, Oral, Nightly therapeutic multivitamin-minerals, 1 tablet, Oral, Daily thiamine, 100 mg, Oral, Daily tiotropium, 2 puff, Inhalation, Daily Continuous Infusions: PRN Meds: PRN medications: acetaminophen OR acetaminophen, ipratropium-albuterol, LORazepam OR LORazepam OR LORazepam OR LORazepam OR LORazepam OR LORazepam OR LORazepam OR LORazepam, perflutren protein A microsphere (Optison) 3 mL in sodium chloride (PF) 0.9 % 10 mL IV syringe, polyethylene glycol (PEG) 3350, promethazine OR promethazine OR promethazine Labs: CBC: Results from last 7 days Lab Units 11/11/232044 WBC AUTO 10*3/uL 13.3* HEMOGLOBIN g/dL 15.0 HEMATOCRIT % 43.1 PLATELETS AUTO 10*3/uL 236 BMP: Results from last 7 days Lab Units 11/11/232044 SODIUM mmol/L 130* POTASSIUM mmol/L 4.1 CHLORIDE mmol/L 94* CO2 mmol/L 28 BUN mg/dL 8* CREATININE mg/dL 0.44* GLUCOSE mg/dL 104* CALCIUM mg/dL 9.6 LIVER PROFILE: No lab exists for component: LABALBU PT/INR: CARDIAC ENZYMES: Results from last 7 days Lab Units 11/12/23 0329 11/11/23 2351 11/11/232044 TROPONIN I ng/mL 0.016 0.017 0.016 Procalcitonin: No results found for: "PROCAL" Glucose: ASSESSMENT/PLAN: Patient Active Problem List Diagnosis Date Noted Acute exacerbation of CHF (congestive heart failure) ([facility]) 11/12/2023 Medical non-compliance 11/12/2023 Anemia in other chronic diseases classified elsewhere 01/01/2023 Closed fracture of neck of left humerus with routine healing 12/31/2022 COPD exacerbation ([facility]) 09/13/2022 Alcohol abuse 07/28/2022 Presence of implantable cardioverter-defibrillator (ICD) 07/19/2022 Chest pain, unspecified type 07/17/2022 Hypochloremia 07/17/2022 Tobacco abuse 07/17/2022 HFrEF (heart failure with reduced ejection fraction) ([facility]) 07/17/2022 Paroxysmal atrial fibrillation ([facility]) 08/25/2021 History of rib fracture 08/25/2021 Chronic hyponatremia 08/25/2021 Essential hypertension 08/25/2021 COPD (chronic obstructive pulmonary disease) (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) 04/10/2017 Cor pulmonale, acute (CMS/HCC) ([facility]) 02/01/2016 Raynaud phenomenon 09/10/2015 1. SOB 2/2 Acute on CHFrEFe with biventricular ICD implantation in 2019 Hx of cor pulmonale Patient has an ejection fraction of 25% per echo in July 2022. Severe global hypokinesis present. Mild to moderate right-sided systolic dysfunction. ICD check last performed on 10/02/2023: normal device fxn, afib ; elevated BNP 10K; PFT 2019 consistent with moderate small airway obstruction and emphysema. Procal 0.18. Resp PCR, UAG negative - admit to tele - Lasix 40mg BID IV - resume home spironolactone 25mg daily - Losartan started 25mg daily - patient used to be on entresto high dose and torsemide 20mg BID, no documentation on why it was discontinued, follow up with cardio recs - echo - cardiology consult - PT/OT -SW/CM COPD - montelukast 10mg - Home inhalers: spriva - duoneb q4 hours and PRN - prednisone 50mg burst - Supplemental O2 Therapy, SpO2 goal 88-92% - PNA PCR - Prevention: Smoking cessation discussed and encouraged. - nicotine patch Permanent A-fib with ICD device -Continue home medications -Eliquis 5 mg twice daily -Metoprolol succinate 100 mg twice daily CAD - continue home atorvastatin 40mg nightly Prolong QTC - avoid QTC prolonging agents 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 - monitor Na - folic acid, thiamine - multivitamin - ETOH and Ethyl gluconride - MAT - CIWA and PRN ativan if CIWA >8 Obstructive sleep apnea -AutoPap Depression -resume Zoloft 100 mg daily Hx of poor medical compliance FEN/GI/DVT: IVF: None Electrolytes: Monitor and replace per protocols Diet: Cardiac GI PPX: No DVT Prophylaxis: No prophylaxis/Already on anticoagulation: eliquis Telemetry: Currently on Telemetry / Reason: CHF DISPOSITION: Monitoring oxygen requirements and weaning as tolerated. Continuing IV diuretics Case discussed with residents, documentation reviewed, diagnostic studies reviewed, patient independently interviewed and examined. I have reviewed and agree with Dr. Holguin's H&P dated 11/10 except to the extent otherwise documented below. In brief, he presents with a 7-day history of progressive dyspnea, occasional dry cough. Denies fever/chills. PMH noteworthy for COPD, HFrEF, CAD, afib, EtOH abuse, noncompliance. Temp (24hrs), Av.8 C (98.2 F), Min:36.8 C (98.2 F), Max:36.8 C (98.2 F) BP (!) 145/68 Pulse 102 Temp 36.8 C (98.2 F) (Temporal) Resp 23 Ht 5' 9" (1.753 m) Wt 184 lb (83.5 kg) SpO2 94% BMI 27.17 kg/m Alert, cooperative, NAD Heart irregularly irregular Lungs diminished, with scattered wheezes and bibasilar crackles Abd soft, normal bowel sounds Extr 2+ edema Admission on 11/11/2023 Component Date Value Ref Range Status NT PRO BNP 11/11/2023 10,200 (H) <20 - 300 pg/mL Final SODIUM 11/11/2023 130 (L) 135 - 145 mmol/L Final POTASSIUM 11/11/2023 4.1 3.5 - 5.1 mmol/L Final CHLORIDE 11/11/2023 94 (L) 98 - 107 mmol/L Final CARBON DIOXIDE 11/11/2023 28 22 - 30 mmol/L Final UREA NITROGEN 11/11/2023 8 (L) 9 - 20 mg/dL Final CREATININE 11/11/2023 0.44 (L) 0.66 - 1.25 mg/dL Final GLUCOSE 11/11/2023 104 (H) 70 - 100 mg/dL Final CALCIUM 11/11/2023 9.6 8.4 - 10.4 mg/dL Final ANION GAP 11/11/2023 9 3 - 13 mmol/L Final eGFR 11/11/2023 >90.0 >60.0 mL/min/1.73m*2 Final Calculation based on the Chronic Kidney Disease Epidemiology Collaboration (CKD-EPI) equation refit without adjustment for race TROPONIN I 11/11/2023 0.016 <0.034 ng/mL Final Auto WBC 11/11/2023 13.3 (H) 3.6 - 10.7 10*3/uL Final RBC 11/11/2023 4.85 4.40 - 5.90 10*6/uL Final Hemoglobin 11/11/2023 15.0 13.0 - 18.0 g/dL Final Hematocrit 11/11/2023 43.1 40.0 - 52.0 % Final MCV 11/11/2023 88.9 77.0 - 99.0 fL Final MCH 11/11/2023 30.9 26.0 - 34.0 pg Final MCHC 11/11/2023 34.8 30.5 - 36.0 % Final RDW 11/11/2023 13.2 11.5 - 15.0 % Final Platelets 11/11/2023 236 140 - 440 10*3/uL Final MPV 11/11/2023 9.3 9.0 - 12.7 fL Final Heart Rate 11/11/2023 101 bpm Final QRSD Interval 11/11/2023 178 ms Final QT Interval 11/11/2023 425 ms Final QTC Interval 11/11/2023 552 ms Final P [place] 11/11/2023 0 degrees Final QRS [place] 11/11/2023 166 degrees Final T Wave [place] 11/11/2023 34 degrees Final VA Interval 11/11/2023 0 ms Final TROPONIN I 11/11/2023 0.017 <0.034 ng/mL Final TROPONIN I 11/12/2023 0.016 <0.034 ng/mL Final Heart Rate 11/11/2023 117 bpm Final QRSD Interval 11/11/2023 176 ms Final QT Interval 11/11/2023 400 ms Final QTC Interval 11/11/2023 558 ms Final P [place] 11/11/2023 0 degrees Final QRS [place] 11/11/2023 0 degrees Final T Wave [place] 11/11/2023 82 degrees Final VA Interval 11/11/2023 0 ms Final SARS-CoV-2 11/12/2023 Not Detected Not Detected Final Adenovirus 11/12/2023 Not Detected Not Detected Final Coronavirus HKU1 11/12/2023 Not Detected Not Detected Final Coronavirus NL63 11/12/2023 Not Detected Not Detected Final Coronavirus 229E 11/12/2023 Not Detected Not Detected Final Coronavirus OC43 11/12/2023 Not Detected Not Detected Final Human Metapneumovirus 11/12/2023 Not Detected Not Detected Final Human Rhinovirus/Enterovirus 11/12/2023 Not Detected Not Detected Final Influenza A 11/12/2023 Not Detected Not Detected Final Influenza B 11/12/2023 Not Detected Not Detected Final Parainfluenza 1 11/12/2023 Not Detected Not Detected Final Parainfluenza 2 11/12/2023 Not Detected Not Detected Final Parainfluenza 3 11/12/2023 Not Detected Not Detected Final Parainfluenza 4 11/12/2023 Not Detected Not Detected Final Respiratory Syncytial Virus 11/12/2023 Not Detected Not Detected Final Bordetella pertussis 11/12/2023 Not Detected Not Detected Final Bordetella parapertussis 11/12/2023 Not Detected Not Detected Final Chlamydia pneumoniae 11/12/2023 Not Detected Not Detected Final Mycoplasma pneumoniae 11/12/2023 Not Detected Not Detected Final Legionella pneumophila Ag 11/12/2023 Not Detected Not Detected Final Streptococcus pneumoniae Ag 11/12/2023 Not Detected Not Detected Final ETHANOL IN SER/PLAS 11/11/2023 <0.010 0.000 - 0.010 g/dL Final This sample may have been collected by using an alcohol pad to swab the skin. Ethanol-containing antiseptics before venipuncture may not be causes of spurious or false positive results of alcohol measurement at least when ideal venipunctures can be performed. However, under non-ideal collection conditions, alcohol contamination is a possibility. Results to be correlated clinically. pH, Venous 11/12/2023 7.397 7.330 - 7.430 pH Final pCO2, Venous 11/12/2023 46.9 40 - 55 mm Hg Final pO2, Venous 11/12/2023 62.5 mm Hg Final HCO3, Venous 11/12/2023 28.9 (H) 23.0 - 27.0 mmol/L Final Base Excess, Venous 11/12/2023 3.2 (H) -3 - 3 mmol/L Final SO2, Venous 11/12/2023 91.2 % Final Performed by CLIA ID: [id number] [place], [place] ?Device: [id number] Auto Body Repairman ID: [id number] CXR shows pulm congestion, small R pl eff, no infiltrate Summary of singh issues: HFrEF exacerbation - Appears fluid overloaded. Started on IV lasix. Continue metoprolol succinate and spironolactone as GDMT. Patient was previously on Entresto but discontinued for unclear reasons. Cardio consult. He has Biventricular pacer/ICD. Check echo. COPD - Continue home tiotropium. Supplemental oxygen and nebs prn. Prednisone burst x 5 days. On empiric antibiotics pending procalcitonin result. Afib - on metoprolol, apixaban. Acceptable rate control. Cardiology consulted. EtOH abuse - Monitor CIWA score with prn benzodiazepine. Vitamin supplementation. Sleep apnea - autopap at night Chronic hyponatremia likely due to #4. Monitor BMP. CAD - On statin. Does not need ASA due to apixaban use. No evidence of acute myocardial injury. See resident's note for additional details. documented in this encounter [facility] 11-14-2023 Note Formatting of this n ote might be different from the original. Care Managment Initial Assessment Date: 11/14/2023 Patient Name: Krystina Markham : 1955 Patient Information Source of Information: Patient Cognition/Language: WFL - Within Functional Limits Permission given to speak with patient outbound call center representative/caregiver as indicated: Confirmation of Payer with patient/family: Yes Payer Name: [facility] : No Confirmation of Primary Care Physician: Confirmed PCP Name: Dr. Jamia Sierra Seen in last 2 years?: Yes Primary Caregiver: Self If assistance needed, confirmed caregiver ready, willing and able to care for patient at discharge: Yes Confirmed with: Per patient: Ex- Melodie is able to assist at DC Living Arrangements Current Residence: Apartment Number of Floors 1 Number of Entry Steps: 2 Bed/Bath Levels: Both first floor Facility: Facility Name: Plan to Return: Lives with: Alone Support Systems: Spouse/significant other, Friends/neighbors Activities of Daily Living Ambulation: Independent Bathing/Dressing: Independent Elimination/Continence/Toileting: Independent Feeding: Independent Who Assists with Activities of Daily Living: Instrumental Activities of Daily Living Prescription Coverage: Yes Pharmacy Used: [facility] in [place] Medication Management: Prescription pick-up Who assists with medication securing and setup?: Melodie picks up meds Transportation/Shopping: Assistance Provider Transportation/Shopping Assistance Provider Name: Melodie Transportation Mode: Car Needs Assistance with Transportation at Discharge: No (Melodie is able to transport home) Meal Preparation: Independent Laundry/Cleaning: Independent Finances/Bill Paying: Independent Communication: Independent Types of Care Services/Equipment Utilized Care Services: Dialysis Type: Durable Medical Equipment: Cane, Walker, Nebulizer Patient's Goal/Discharge Plan Patient expects to be discharged to: Home independently Discharge Planning Actions: No needs identified Patient's Choice Rights and [employer] and Collaborative Relationships Disclosed as Indicated for Post-Acute Care: Interdisciplinary Team Engagement: Social Work Referral for: Additional Information: Introduced self and role. Patient is admitted to for CHF Exac. Has biventricular pacer, Cards already on board. Losartan added, already transitioned to PO lasix. Patient lives alone, ex- Melodie is able to transport patient home. Sees Dr Jamia Sierra (PCP) routinely. Has insurance and prescription coverage, uses [facility] in [place]. Patient denies any financial difficulties. Plan to DC home independently when medically stable. No needs identified. Patient verbalizes understanding and is in agreement with POC. Talia Gagnon RN [facility] 11-14-2023 Note Formatting of this n ote might be different from the original. Care Managment Initial Assessment Date: 11/14/2023 Patient Name: Krystina Markham : 1955 Patient Information Source of Information: Patient Cognition/Language: WFL - Within Functional Limits Permission given to speak with patient outbound call center representative/caregiver as indicated: Confirmation of Payer with patient/family: Yes Payer Name: [facility] : No Confirmation of Primary Care Physician: Confirmed PCP Name: Dr. Jamia Sierra Seen in last 2 years?: Yes Primary Caregiver: Self If assistance needed, confirmed caregiver ready, willing and able to care for patient at discharge: Yes Confirmed with: Per patient: Ex- Melodie is able to assist at DC Living Arrangements Current Residence: Apartment Number of Floors 1 Number of Entry Steps: 2 Bed/Bath Levels: Both first floor Facility: Facility Name: Plan to Return: Lives with: Alone Support Systems: Spouse/significant other, Friends/neighbors Activities of Daily Living Ambulation: Independent Bathing/Dressing: Independent Elimination/Continence/Toileting: Independent Feeding: Independent Who Assists with Activities of Daily Living: Instrumental Activities of Daily Living Prescription Coverage: Yes Pharmacy Used: [facility] in [place] Medication Management: Prescription pick-up Who assists with medication securing and setup?: Melodie picks up meds Transportation/Shopping: Assistance Provider Transportation/Shopping Assistance Provider Name: Melodie Transportation Mode: Car Needs Assistance with Transportation at Discharge: No (Melodie is able to transport home) Meal Preparation: Independent Laundry/Cleaning: Independent Finances/Bill Paying: Independent Communication: Independent Types of Care Services/Equipment Utilized Care Services: Dialysis Type: Durable Medical Equipment: Cane, Walker, Nebulizer Patient's Goal/Discharge Plan Patient expects to be discharged to: Home independently Discharge Planning Actions: No needs identified Patient's Choice Rights and [employer] and Collaborative Relationships Disclosed as Indicated for Post-Acute Care: Interdisciplinary Team Engagement: Social Work Referral for: Additional Information: Introduced self and role. Patient is admitted to for CHF Exac. Has biventricular pacer, Cards already on board. Losartan added, already transitioned to PO lasix. Patient lives alone, ex- Melodie is able to transport patient home. Sees Dr Jamia Sierra (PCP) routinely. Has insurance and prescription coverage, uses [facility] in [place]. Patient denies any financial difficulties. Plan to DC home independently when medically stable. No needs identified. Patient verbalizes understanding and is in agreement with POC. Talia Gagnon RN [facility] 11-14-2023 Hospital Discharge instructions Matt Victoria MD - 11/14/2023 12:26 PM EDT Images from the original note were not included. [facility] Medication Changes Start Taking losartan 25 MG tablet; Commonly known as: Cozaar; Take 1 tablet (25 mg) by mouth daily.; Start taking on: November 15, 2023 predniSONE 50 MG tablet; Commonly known as: Deltasone; Take 1 tablet (50 mg) by mouth daily for 1 dose.; Start taking on: November 15, 2023 Medication List montelukast 10 MG tablet; Commonly known as: Singulair; TAKE 1 TABLET BY MOUTH EVERY DAY IN THE EVENING rosuvastatin 40 MG tablet; Commonly known as: Crestor; TAKE 1 TABLET BY MOUTH EVERY DAY NIGHTLY sertraline 100 MG tablet; Commonly known as: Zoloft; TAKE 1 TABLET (100 MG) BY MOUTH EVERY MORNING spironolactone 25 MG tablet; Commonly known as: Aldactone; Take 1 tablet (25 mg) by mouth Nightly. tiotropium 1.25 MCG/ACT inhaler; Commonly known as: Spiriva Respimat; Inhale 2 puffs daily. CONTINUE taking these medications Eliquis 5 MG tablet; Generic drug: apixaban; Take 1 tablet (5 mg) by mouth 2 times daily. ipratropium-albuterol 0.5-2.5 mg/3 mL nebulizer solution; Commonly known as: Duo-Neb; Take 3 mL by nebulization 2 times daily as needed for wheezing or shortness of breath. metoprolol succinate XL 100 MG 24 hr tablet; Commonly known as: Toprol-XL; TAKE 1 TABLET (100 MG) BY MOUTH IN THE MORNING AND 1 TABLET (100 MG) BEFORE BEDTIME. DO NOT CRUSH OR CHEW.. torsemide 20 MG tablet; Commonly known as: Demadex STOP taking these medications magnesium oxide 400 MG tablet; Commonly known as: Mag-Ox ASK your doctor about these medications CVS B-1 100 MG tablet; Generic drug: thiamine; TAKE 1 TABLET BY MOUTH EVERY DAY folic acid 1 MG tablet; Commonly known as: Folvite; TAKE 1 TABLET BY MOUTH ONCE DAILY IN THE MORNING Therapeutic-M/Lutein tablet; TAKE 1 TABLET BY MOUTH IN THE MORNING, 1 TABLET AT NOON, AND 1 TABLET BEFORE BEDTIME If you have any questions about your medications please call your Primary Care Doctor JAMIA SIERRA MD [phone] Please go to all follow-up appointments (more details above): Future Appointments Date Time Provider Department Center 01/15/2024 1:30 PM NEOCS LYNDSAY DEVICE RN 1 [facility] [place] 05/13/2024 9:30 AM [facility] LYNDSAY DEVICE RN 1 [facility] [place] 05/13/2024 10:00 AM Ric Foote MD [facility] [place] Please make appointments with the following doctors (more details above): PCP and Cardiology GENERAL SIGNS AND SYMPTOMS GREEN ZONE: All Clear- Your Symptoms Are Under Control No recurrence of symptoms that led to hospitalization Able to do usual activities No fever No chest pain No shortness of breath This Means You Should: Continue taking your medications as prescribed Continue activity as tolerated Keep all doctor appointments YELLOW ZONE: Caution as Your Health may be Worsening Recurrence of symptoms that led to hospitalization Fever of 100 degrees or higher Increased fatigue or restlessness Intolerant side-effects of medications Uneasy feeling or that something is wrong This Means You Should: Call your doctor for further instructions JAMIA SIERRA MD [phone] [place] [address] / [facility] [id number] RED ZONE: Medical Alert Severe or unrelieved shortness of breath at rest Unrelieved chest pain Confusion or you can't think clearly This Means You Should Call 911 Immediately It was a pleasure taking care of you! Matt Victoria MD [facility] documented in this encounter [facility] 11-14-2023 Miscellaneous Notes Care Managment Initial Assessment Date: 11/14/2023 Patient Name: Krystina Markham : 1955 Patient Information Source of Information: Patient Cognition/Language: WFL - Within Functional Limits Permission given to speak with patient outbound call center representative/caregiver as indicated: Confirmation of Payer with patient/family: Yes Payer Name: [facility] [place]: No Confirmation of Primary Care Physician: Confirmed PCP Name: Dr. Jamia Sierra Seen in last 2 years?: Yes Primary Caregiver: Self If assistance needed, confirmed caregiver ready, willing and able to care for patient at discharge: Yes Confirmed with: Per patient: Ex- Melodie is able to assist at DC Living Arrangements Current Residence: Apartment Number of Floors 1 Number of Entry Steps: 2 Bed/Bath Levels: Both first floor Facility: Facility Name: Plan to Return: Lives with: Alone Support Systems: Spouse/significant other, Friends/neighbors Activities of Daily Living Ambulation: Independent Bathing/Dressing: Independent Elimination/Continence/Toileting: Independent Feeding: Independent Who Assists with Activities of Daily Living: Instrumental Activities of Daily Living Prescription Coverage: Yes Pharmacy Used: [facility] in [place] Medication Management: Prescription pick-up Who assists with medication securing and setup?: Melodie picks up meds Transportation/Shopping: Assistance Provider Transportation/Shopping Assistance Provider Name: Melodie Transportation Mode: Car Needs Assistance with Transportation at Discharge: No (Melodie is able to transport home) Meal Preparation: Independent Laundry/Cleaning: Independent Finances/Bill Paying: Independent Communication: Independent Types of Care Services/Equipment Utilized Care Services: Dialysis Type: Durable Medical Equipment: Cane, Walker, Nebulizer Patient's Goal/Discharge Plan Patient expects to be discharged to: Home independently Discharge Planning Actions: No needs identified Patient's Choice Rights and [employer] and Collaborative Relationships Disclosed as Indicated for Post-Acute Care: Interdisciplinary Team Engagement: Social Work Referral for: Additional Information: Introduced self and role. Patient is admitted to for CHF Exac. Has biventricular pacer, Cards already on board. Losartan added, already transitioned to PO lasix. Patient lives alone, ex- Melodie is able to transport patient home. Sees Dr Jamia Sierra (PCP) routinely. Has insurance and prescription coverage, uses [facility] in [place]. Patient denies any financial difficulties. Plan to DC home independently when medically stable. No needs identified. Patient verbalizes understanding and is in agreement with POC. Talia Gagnon RN documented in this encounter [facility] 11-13-2023 Emergency department Note Pt states that he has not had ETOH in approx 1 week. Pt denies ever having seizures from not drinking ETOH. Pt states that he feels fine. Riana Menendez RN 11/13/23 1230 [facility] 11-13-2023 Emergency department Note Pt states that he has not had ETOH in approx 1 week. Pt denies ever having seizures from not drinking ETOH. Pt states that he feels fine. Riana Menendez RN 11/13/23 1230 Diet tray ordered at this time per pt request. Javier Duran RN 11/13/23 0613 Pt still unable to provide sputum sample. Specimen cup at pts bedside and pt aware of how to obtain sample and to alert staff when sample is acquired. Pt resting in bed, urinal empty and at bedside.pt given debbie genna per pts request. Pt denies current needs. Pt still not wearing oxygen and advised of need for oxygen, pt still refuses. Javier Duran RN 11/13/23 0314 Pt returned from restroom at this time, pt sitting at the edge of the bed. Pt refusing to wear oxygen at this time despite this nurse advocating for pt to continue to wear oxygen via nc. Pt continues to refuse. Javier Duran RN 11/13/23 0129 Pt resting in bed, pt denies further needs, pt given debbie genna per pt request. Javier Duran RN 11/12/23 8546 Pt aware of need for sputum sample, pt unable to provide at this time. Sterile collection cup left at bedside and instructions for acquiring sample provided with verbalized understanding from pt. Javier Duran RN 11/12/23 6882 Pt offered to transfer to inpatient bed, pt refused stating he liked the bed he was in (ER Stretcher). Pt advised of risk associated with prolonged use of er cots to include development of wounds. Pt continues to refuse transfer to inpatient bed. Pt able to turn self and move independently. Javier Duran RN 11/12/[address] Holguin updated patient on plan Evelin Solo RN 11/12/23 9203 Pt states would like to stay now instead of leaving AMA. Provider notified Evelin Solo RN 11/12/23 9856 Pt stating would like to leave AMA. Dr Bishop notified Evelin Solo RN 11/12/23 9091 Pt placed on 6L NC. Duonebs started per Dr Baca. IV in progress. Pt feels SOB and visitor endorses pt has not been taking prescribed medications Mckenzie Puente RN 11/11/230 Emergency Department Encounter [facility] ED Patient: Krystina Markham : 1955 Date of Evaluation: 11/11/2023 ED Supervising Physician: Mario Alberto Paris MD I personally evaluated Krystina Markham and made/approved the management plan and take responsibility for the patient management. This will serve as my Supervisory note and shared attestation. I did perform a substantive portion of the visit including all aspects of the Medical Decision Making. I wore appropriate PPE for the entirety of this encounter. In brief, Krystina Markham is a 68 y.o. that presents to the emergency department for evaluation of worsening shortness of breath and lower extremity edema. Patient states that he has had worsening shortness of breath severely over the last 5 days. Lower extremity edema worsening over the last couple of weeks. Patient with past medical history of COPD, CHF with previous episode of cor pulmonale, A-fib, previous PE. States that he stopped taking many of his medications recently to include his diuretic, anticoagulant, and other medications. Does not provide a reason why. Denies any recent injuries. Denies any fever or chills. Focused exam: Awake, alert, in obvious respiratory distress with tachypnea and shallow breathing. Tachycardic. Bilateral lower extremity pitting edema. Abdomen is soft, nondistended, nontender. Diffuse expiratory wheezing, scattered rhonchi, and dependent rales. Brief ED course/MDM: Patient presents with worsening shortness of breath over the last 5 days. Upon arrival he is in obvious respiratory distress. Diffuse expiratory wheezing with scattered rhonchi and dependent rales as well as bilateral lower extremity edema. DuoNebs and steroids initiated shortly after evaluation as well as BiPAP. Significant improvement on BiPAP. High suspicion for COPD exacerbation complicated by CHF exacerbation as well as a high index of suspicion for pneumonia, ACS also considered. Workup consisted of CBC, BMP, BNP, troponin, EKG, and chest x-ray. EKG per my interpretation shows atrial fibrillation with mildly elevated ventricular rate at [address] elevations, depressions, ectopy, or other concerning findings. Chest x-ray per my interpretation does show changes consistent with pneumonitis versus pneumonia as well and some pulmonary vascular congestion. Empiric antibiotics initiated in the ED based off of presenting complaint and past medical history as well as physical exam findings. Cefepime initiated. Lasix also initiated due to the obvious fluid overload with dependent rales and bilateral lower extremity pitting edema. CBC with elevated white blood cell count at 13.3, appears baseline for the patient. BMP with no significant derangements from the patient's baseline with fairly stable hyponatremia, hypochloremia. BNP is elevated at 10,200 confirming suspicion for acute on chronic congestive heart failure. Troponin is not elevated. Patient be admitted for continued attempt at fluid management and management of his COPD exacerbation. After. In the ED after DuoNeb administration he does have improved lung sounds though he continues to have scattered rhonchi and expiratory wheezing. Trial off BiPAP with good oxygenation on supplemental oxygen via nasal cannula. Diagnostics interpreted by me: Xray(s) as detailed above EKG; see my interpretation elsewhere in the chart I personally discussed the patient's management with other clinicians: none All diagnostic, treatment, and disposition decisions were made by myself in conjunction with the Resident. I also supervised singh portions of any procedures performed by the Resident. For all further details of the patient's emergency department visit, please see their documentation. (Comment: Please note this report has been produced using speech recognition software and may contain errors related to that system including errors in grammar, punctuation, and spelling, as well as words and phrases that may be inappropriate. If there are any questions or concerns please feel free to contact the dictating provider for clarification.) Mario Alberto Paris MD [employer] Mario Alberto Paris MD 11/11/23 7572 EMERGENCY DEPARTMENT ENCOUNTER Pt Name: Krystina Markham Birthdate 1955 Date of evaluation: 11/11/2023 ED Provider: Yamini Barraza DO CHIEF COMPLAINT No chief complaint on file. HISTORY OF PRESENT ILLNESS (Location/Symptom, Timing/Onset, Context/Setting, Quality, Duration, Modifying Factors, Severity) Note limiting factors. I wore appropriate PPE for the entirety of this encounter. HPI Krystina Markham is a 68 y.o. who presents to the emergency department with shortness of breath and difficulty breathing as well as productive cough for the last 5 days. Also had worsening swelling in his legs. History of COPD, CHF. Has not been taking his medications for many days now. Family member at bedside providing most of the history as patient is only able to speak 1-2 words due to his shortness of breath. He denies any fevers chills congestion rhinorrhea or chest pain. Nursing Notes were reviewed. Limitations to history: Respiratory distress Outside historians: Family ex- at bedside REVIEW OF SYSTEMS Review of Systems Pertinent positives and negatives as per HPI. PAST MEDICAL HISTORY Past Medical History: Diagnosis Date Alcohol consumption heavy 09/10/2015 Asthma Atrial fibrillation ([facility] ([facility] CHF (congestive heart failure) ([facility]) ([facility]) 01/31/2016 COPD (chronic obstructive pulmonary disease) ([facility]) 09/10/2015 Cor, pulmonale, acute ([facility]) ([facility]) Deep venous thrombosis ([facility]) 02/2016 Depression Hx of blood clots Obesity 09/10/2015 DELORES (obstructive sleep apnea) Pulmonary embolus ([facility]) 6 16 Raynaud phenomenon 09/10/2015 Smoker 09/10/2015 SURGICAL HISTORY Past Surgical History: Procedure Laterality Date ABDOMINAL SURGERY BRONCHOSCOPY 02/25/2020 BRONCHOSCOPY (HISTORICAL) 02/25/2020 COLONOSCOPY 10/27/[address] CHEST ANGIOGRAM W AND/OR WO IV CONTRAST 07/12/2022 CT CHEST ANGIOGRAM W AND/OR WO IV CONTRAST 07/12/2022 [facility] CT IMAGING FINGER AMPUTATION Left HERNIA REPAIR NOSE SURGERY CURRENT MEDICATIONS Previous Medications ALBUTEROL (2.5 MG/3ML) 0.083% NEBULIZER SOLUTION TAKE 3 MLS VIA NEBULIZATION ONCE NEEDED FOR WHEEZING OR SHORTNESS OF BREATH FOR UP TO 75 DOSES ALBUTEROL 108 (90 BASE) MCG/ACT INHALER INHALE 2 PUFFS INTO LUNGS EVERY 6 HOURS NEEDED FOR WHEEZING OR SHORTNESS OF BREATH CVS B-1 100 MG TABLET TAKE 1 TABLET BY MOUTH EVERY DAY ELIQUIS 5 MG TABLET Take 1 tablet (5 mg) by mouth 2 times daily. FOLIC ACID (FOLVITE) 1 MG TABLET TAKE 1 TABLET BY MOUTH ONCE DAILY IN THE MORNING IPRATROPIUM-ALBUTEROL (DUO-NEB) 0.5-2.5 MG/3 ML NEBULIZER SOLUTION Take 3 mL by nebulization 2 times daily as needed for wheezing or shortness of breath. MAGNESIUM OXIDE (MAG-OX) 400 MG TABLET Take 1 tablet by mouth in the morning. METOPROLOL SUCCINATE XL (TOPROL-XL) 100 MG 24 HR TABLET TAKE 1 TABLET (100 MG) BY MOUTH IN THE MORNING AND 1 TABLET (100 MG) BEFORE BEDTIME. DO NOT CRUSH OR CHEW.. MONTELUKAST (SINGULAIR) 10 MG TABLET TAKE 1 TABLET BY MOUTH EVERY DAY IN THE EVENING MULTIPLE VITAMINS-MINERALS (THERAPEUTIC-M/LUTEIN) TABLET TAKE 1 TABLET BY MOUTH IN THE MORNING, 1 TABLET AT NOON, AND 1 TABLET BEFORE BEDTIME ROSUVASTATIN (CRESTOR) 40 MG TABLET TAKE 1 TABLET BY MOUTH EVERY DAY NIGHTLY SERTRALINE (ZOLOFT) 100 MG TABLET TAKE 1 TABLET (100 MG) BY MOUTH EVERY MORNING SPIRONOLACTONE (ALDACTONE) 25 MG TABLET Take 1 tablet (25 mg) by mouth Nightly. TIOTROPIUM (SPIRIVA RESPIMAT) 1.25 MCG/ACT INHALER Inhale 2 puffs daily. TORSEMIDE (DEMADEX) 20 MG TABLET Take 20 mg by mouth in the morning and 20 mg before bedtime. ALLERGIES Patient has no known allergies. FAMILY HISTORY Family History Problem Relation Name Age of Onset Asthma Father defects Father Cancer Father Asthma Sister Heart disease Mother Heart disease Brother Pacemaker Mother defects Sister Cancer Mother Diabetes Mother SOCIAL HISTORY Social History Socioeconomic History Marital status: Tobacco Use Smoking status: Every Day Packs/day: 0.25 Years: 40.00 Additional pack years: 0.00 Total pack years: 10.00 Types: Cigarettes Start date: 1972 Smokeless tobacco: Never Tobacco comments: 8 cig daily Substance and Sexual Activity Alcohol use: Yes Alcohol/week: 7.0 standard drinks of alcohol Types: 7 Cans of beer per week Comment: once beer daily Drug use: Never Social Determinants of Health Financial Resource Strain: Low Risk (01/07/2023) Overall Financial Resource Strain (CARDIA) Difficulty of Paying Living Expenses: Not hard at all Food Insecurity: No Food Insecurity (01/07/2023) Hunger Vital Sign Worried About Running Out of Food in the Last Year: Never true Ran Out of Food in the Last Year: Never true Transportation Needs: No Transportation Needs (01/07/2023) PRAPARE - Transportation Lack of Transportation (Medical): No Lack of Transportation (Non-Medical): No Intimate Partner Violence: Not At Risk (12/29/2022) Humiliation, Afraid, Rape, and Kick questionnaire Fear of Current or Ex-Partner: No Emotionally Abused: No Physically Abused: No Sexually Abused: No SCREENINGS PHYSICAL EXAM ED Triage Vitals Temp Heart Rate Resp BP 11/11/23202611/11/23202611/11/23220111/11/232026 36.8 C (98.2 F) 79 22 (!) 151/90 SpO2 Temp Source Heart Rate Source Patient Position 11/11/23202611/11/23202611/11/232026 -- (!) 85 % Temporal Monitor BP Location FiO2 (%) -- 11/11/23 2100 100 % Physical Exam Vitals reviewed. Constitutional: General: He is not in acute distress. Appearance: He is obese. He is ill-appearing. HENT: Head: Normocephalic and atraumatic. Eyes: Conjunctiva/sclera: Conjunctivae normal. Cardiovascular: Rate and Rhythm: Regular rhythm. Tachycardia present. Pulses: Normal pulses. Heart sounds: Normal heart sounds. No murmur heard. Pulmonary: Effort: Respiratory distress present. Breath sounds: Wheezing (expiratory and inspiratory), rhonchi and rales present. Abdominal: Palpations: Abdomen is soft. Tenderness: There is no abdominal tenderness. There is no guarding or rebound. Musculoskeletal: General: No tenderness. Normal range of motion. Right lower leg: Edema (2+ pitting) present. Left lower leg: Edema (2+ pitting) present. Skin: Capillary Refill: Capillary refill takes more than 3 seconds. Neurological: General: No focal deficit present. Mental Status: He is alert. DIAGNOSTIC RESULTS RADIOLOGY (Per Emergency Physician): Interpretation per the Radiologist below, if available at the time of this note: XR chest 1 view Final Result 1. Findings which may represent vascular congestion, nonspecific infectious/inflammatory process and pneumonitis or chronic interstitial and fibrotic change, increased or with interval progression. Clinical correlation and follow-up as indicated. Report Dictated on Electronically Signed By: Alirio Gamboa MD Electronically Signed Date/Time: 11/11/2023 9:06 PM EDT LABS: Labs Reviewed NT PRO BNP - Abnormal Result Value NT PRO BNP 10,200 (*) BASIC METABOLIC PANEL - Abnormal SODIUM 130 (*) POTASSIUM 4.1 CHLORIDE 94 (*) CARBON DIOXIDE 28 UREA NITROGEN 8 (*) CREATININE 0.44 (*) GLUCOSE 104 (*) CALCIUM 9.6 ANION GAP 9 eGFR >90.0 CBC (HEMOGRAM) - Abnormal Auto WBC 13.3 (*) RBC 4.85 Hemoglobin 15.0 Hematocrit 43.1 MCV 88.9 MCH 30.9 MCHC 34.8 RDW 13.2 Platelets 236 MPV 9.3 TROPONIN, WITH SERIAL REFLEX - Normal TROPONIN I 0.016 Narrative: Patients with high levels of Biotin oral intake (ie >5 mg/day) may have falsely decreased Troponin levels. TROPONIN I TROPONIN I All other labs were within normal range or not returned as of this dictation. EMERGENCY DEPARTMENT COURSE and DIFFERENTIAL DIAGNOSIS/MDM: Vitals: Vitals: 11/11/23202511/11/23202611/11/23 2202 11/11/23 2236 BP: (!) 151/90 (!) 152/88 Pulse: 79 94 98 Resp: 22 20 Temp: 36.8 C (98.2 F) TempSrc: Temporal SpO2: (!) 85% 100% 90% Weight: 83.5 kg (184 lb) Height: 1.753 m (5' 9") The patient presented with a chief complaint of shortness of breath. The differential diagnosis associated with this patient's presentation includes COPD exacerbation versus heart failure exacerbation versus pneumonia versus viral illness. Our workup consisted of ordering/reviewing labs, imaging. Patient in respiratory distress on arrival satting in the mid 80s with expiratory history wheezes as well as scattered rhonchi and rales. Patient given 3 DuoNebs, IV Solu-Medrol and placed on NIV. Also given magnesium. Patient was observed on NIV and titrated off. Had improvement wheezing so albuterol was ordered. Oxygen saturation remained above 92% on 3 L nasal cannula. Labs were notable for leukocytosis of 13.3. This plus the productive wet cough and rhonchi he has more concern for pneumonia so treat empirically for pneumonia. Does have a chronic hyponatremia. Troponin negative. BNP markedly elevated at 10,200. Given Lasix. Chest x-ray and EKG as below. Plan for admission to the floor for COPD and heart failure exacerbation. Diagnoses as of 11/11/232328 COPD exacerbation (HCC) Acute on chronic congestive heart failure, unspecified heart failure type (HCC) External records reviewed: Outpatient notes patient was last seen in the family medicine office on 01/07/2023. Was given referral to pulmonology as well as cardiology Diagnostics interpreted by me: EKG(s) Atrial fibrillation, PVC noted, left bundle branch block, no STEMI based on Sgarbossa criteria Xray(s) chest x-ray with cardiomegaly, cardiac device noted, pulmonary vascular congestion noted as well as probable infiltrate in the right lower lobe Discussions with other clinicians: Admitting team family medicine Chronic conditions impacting care: COPD and heart failure Social determinants of health affecting care: none ED Medications managed: Medications azithromycin (Zithromax) 500 mg in sodium chloride 0.9 % 250 mL IVPB (ADD-Barnum) (500 mg IntraVENous New Bag 11/11/232234) ipratropium-albuterol (Duo-Neb) 0.5-2.5 mg/3 mL nebulizer solution 9 mL (9 mL Nebulization Given 11/11/232044) methylPREDNISolone sodium succinate (PF) (SOLU-Medrol) injection 125 mg (125 mg IntraVENous Given 11/11/232042) magnesium sulfate IVPB premix 2,000 mg (0 mg IntraVENous Stopped 11/11/232057) cefepime (Maxipime) 2,000 mg in sodium chloride 0.9 % 50 mL IVPB Mini-Bag Plus (0 mg IntraVENous Stopped 11/11/232223) furosemide (Lasix) injection 80 mg (80 mg IntraVENous Given 11/11/232147) albuterol (2.5 MG/3ML) 0.083% nebulizer solution 2.5 mg (2.5 mg Nebulization Given 11/11/232235) Prescription drugs considered: None PROCEDURES: Unless otherwise noted below, none Procedures FINAL IMPRESSION 1. COPD exacerbation (HCC) 2. Acute on chronic congestive heart failure, unspecified heart failure type (HCC) DISPOSITION Admit 11/11/2023 10:58:51 PM PATIENT REFERRED TO: No follow-up provider specified. DISCHARGE MEDICATIONS: New Prescriptions No medications on file (Comment: Please note this report has been produced using speech recognition software and may contain errors related to that system including errors in grammar, punctuation, and spelling, as well as words and phrases that may be inappropriate. If there are any questions or concerns please feel free to contact the dictating provider for clarification.) Yamini Barraza DO (electronically signed) Emergency Medicine Provider Yamini Barraza DO Resident 11/11/23 0262 documented in this encounter [facility] 11-13-2023 Emergency department Note Diet tray ordered at this time per pt request. Javier Duran RN 11/13/23 0613 [facility] 11-13-2023 Emergency department Note Pt still unable to provide sputum sample. Specimen cup at pts bedside and pt aware of how to obtain sample and to alert staff when sample is acquired. Pt resting in bed, urinal empty and at bedside.pt given debbie genna per pts request. Pt denies current needs. Pt still not wearing oxygen and advised of need for oxygen, pt still refuses. Javier Duran RN 11/13/23 0314 [facility] 11-13-2023 Emergency department Note Pt returned from restroom at this time, pt sitting at the edge of the bed. Pt refusing to wear oxygen at this time despite this nurse advocating for pt to continue to wear oxygen via nc. Pt continues to refuse. Javier Duran RN 11/13/23 0129 [facility] 11-12-2023 Emergency department Note Pt resting in bed, pt denies further needs, pt given debbie genna per pt request. Javier Duran RN 11/12/23 7895 [facility] 11-12-2023 Emergency department Note Pt aware of need for sputum sample, pt unable to provide at this time. Sterile collection cup left at bedside and instructions for acquiring sample provided with verbalized understanding from pt. Javier Duran RN 11/12/23 0994 [facility] 11-12-2023 Emergency department Note Pt offered to transfer to inpatient bed, pt refused stating he liked the bed he was in (ER Stretcher). Pt advised of risk associated with prolonged use of er cots to include development of wounds. Pt continues to refuse transfer to inpatient bed. Pt able to turn self and move independently. Javier Duran RN 11/12/23 4836 [facility] 11-12-[address] Holguin updated patient on plan Evelin Solo RN 11/12/23 5831 [facility] 11-12-2023 Emergency department Note Pt states would like to stay now instead of leaving AMA. Provider notified Evelin Solo RN 11/12/23 9567 [facility] 11-12-2023 Emergency department Note Pt stating would like to leave AMA. Dr Bishop notified Evelin Solo RN 11/12/23 2769 [facility] 11-12-2023 Consult note Associated Order (s): IP CONSULT TO CARDIOLOGY [facility] [place] [facility]/ Electrophysiology Consult Note Reason for Consult/Chief Complaint: HFREF, Patient used to take entresto and demedex, no longer using, need guidance on management and treatment for CHF History of Present Illness: Krystina Markham is a 68 y.o. male with history of heart failure with reduced ejection fraction, permanent atrial fibrillation on Eliquis, chronic obstructive lung disease, history of cor pulmonale, history of DVT/PE, smoker, obesity, obstructive sleep apnea syndrome, history of medication noncompliance, and alcohol abuse disorder. He has history of heart failure with reduced ejection fraction nonischemic cardiomyopathy with last documented ejection fraction of 25% based on transthoracic echocardiogram performed in 2021. 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 He has longstanding pulmonary hypertension as well as mild to moderate mitral regurgitation. He was last seen by his analytics director about a year ago. At that time, he was on Toprol-XL 100 daily, Crestor 40 daily, Entresto 49-51 mg twice daily, Aldactone 25 daily, and Demadex 20 mg twice daily. Last device check was on 10/02/2023 which showed normal device function, with underlying rhythm of atrial fibrillation, mode was VVIR. Battery longevity 4.5 years, V paced 100% with permanent atrial fibrillation. He presented to ED on 11/11/2023 with chief complaints of shortness of breath. He started with shortness of breath and wheezing a few weeks ago. Denies fevers chills or sick contacts. Denies chest pain or palpitations. He has been noncompliant with his medications. He drinks daily and continues to smoke half a pack daily. ECG showed atrial fibrillation, left bundle branch block. Cardiac troponin I was negative x 3. NT proBNP was 10,200. Chest x-ray consistent with vascular congestion with underlying COPD changes. Creatinine 1.44 with BUN of 8. Telemetry showed AF. Single short episode of VT. Last beer was yesterday. Continues to smoke daily. He is not sure of what medications he takes at home and doses. He has received Lasix 80 mg IV, Lasix 40 mg IV x 1. Assessment/Plan Heart failure with reduced ejection fraction-probably in acute decompensation related to medication noncompliance- Continue Toprol XL 100 mg BID, Aldactone 25 mg daily. Continue Crestor. Add Losartan 25 mg daily. Lasix 40 mg IV daily. Daily I/O charting. Daily weights. Check BMP daily. Repeat ECHO. Permanent AF- remains in AF, rate controlled. Continue Metoprolol XL and Eliquis. ETOH abuse- DT precautions. Past Medical History: Past Medical History: Diagnosis Date Alcohol consumption heavy 09/10/2015 Asthma Atrial fibrillation (CMS/HCC) ([facility]) CHF (congestive heart failure) (CMS/HCC) ([facility]) 01/31/2016 COPD (chronic obstructive pulmonary disease) ([facility]) 09/10/2015 Cor, pulmonale, acute ([facility]) ([facility] Deep venous thrombosis ([facility]) 02/2016 Depression Hx of blood clots Obesity 09/10/2015 DELORES (obstructive sleep apnea) Pulmonary embolus ([facility]) 6 16 Raynaud phenomenon 09/10/2015 Smoker 09/10/2015 Past Surgical History: Past Surgical History: Procedure Laterality Date ABDOMINAL SURGERY BRONCHOSCOPY 02/25/2020 BRONCHOSCOPY (HISTORICAL) 02/25/2020 COLONOSCOPY 10/27/[address] CHEST ANGIOGRAM W AND/OR WO IV CONTRAST 07/12/2022 CT CHEST ANGIOGRAM W AND/OR WO IV CONTRAST 07/12/2022 [facility] CT IMAGING FINGER AMPUTATION Left HERNIA REPAIR NOSE SURGERY Family History: Family History Problem Relation Name Age of Onset Asthma Father defects Father Cancer Father Asthma Sister Heart disease Mother Heart disease Brother Pacemaker Mother defects Sister Cancer Mother Diabetes Mother Social History: Social History Tobacco Use Smoking status: Every Day Packs/day: 0.25 Years: 40.00 Additional pack years: 0.00 Total pack years: 10.00 Types: Cigarettes Start date: 1972 Smokeless tobacco: Never Tobacco comments: 8 cig daily Substance Use Topics Alcohol use: Yes Alcohol/week: 7.0 standard drinks of alcohol Types: 7 Cans of beer per week Comment: once beer daily Drug use: Never Medications: apixaban, 5 mg, Oral, BID folic acid, 1 mg, Oral, Daily furosemide, 40 mg, IntraVENous, BID ipratropium-albuterol, 3 mL, Nebulization, Q4H while awake metoprolol succinate XL, 100 mg, Oral, BID montelukast, 10 mg, Oral, qPM nicotine, 1 patch, TransDERmal, Daily Followed by [START ON 12/24/2023] nicotine, 1 patch, TransDERmal, Daily Followed by [START ON 01/07/2024] nicotine, 1 patch, TransDERmal, Daily predniSONE, 50 mg, Oral, Daily rosuvastatin, 40 mg, Oral, Nightly sertraline, 100 mg, Oral, q AM spironolactone, 25 mg, Oral, Nightly therapeutic multivitamin-minerals, 1 tablet, Oral, Daily thiamine, 100 mg, Oral, Daily tiotropium, 2 puff, Inhalation, Daily Allergies: Patient has no known allergies. Reviewed Review of Systems: All other systems were reviewed and are negative other than as noted in the HPI. Physical Examination: Vitals: Blood pressure (!) 145/68, pulse 102, temperature 36.8 C (98.2 F), temperature source Temporal, resp. rate 23, height 5' 9" (1.753 m), weight 184 lb (83.5 kg), SpO2 94%. @IODETAILS@ @[id number]@ Constitutional: No acute distress. Well-nourished. Well hydrated. Psychiatric: A &O x 3. Mood is normal. Affect is appropriate. Eyes: Pupils are equal and round; Conjunctiva are not injected; Sclera are non-icteric. ENMT: Ears/nose without external abnormalities. Oral mucosa is pink and moist. Neck: no JVD. No carotid bruits; No thyromegaly. Respiratory: Lungs reduced air entry at bases. Heart: irregularly irregular ; Normal S1 and S2. systolic murmur; No rub Vasc: Peripheral pulses intact. Abdomen: Normal BS, soft, non-tender Extremities/Skin: 1+ LE edema; Skin warm to touch and well perfused; skin itchy rash Musculoskeletal: Head - normocephalic. Neck - supple Laboratory Tests: Lab Results Component Value Date GLUCOSE 104 (H) 11/11/2023 CALCIUM 9.6 11/11/2023 NA 130 (L) 11/11/2023 K 4.1 11/11/2023 CO2 28 11/11/2023 CL 94 (L) 11/11/2023 BUN 8 (L) 11/11/2023 CREATININE 0.44 (L) 11/11/2023 Lab Results Component Value Date HGBA1C 5.9 (H) 07/17/2022 Lab Results Component Value Date TSH 2.568 07/16/2022 Lab Results Component Value Date CHOL 155 07/16/2022 Lab Results Component Value Date HDL 90 (H) 07/16/2022 Lab Results Component Value Date LDLCALC 54 07/16/2022 Lab Results Component Value Date TRIG 53 07/16/2022 No results found for: "CHOLHDL" No components found for: "NTPROBNP" Lab Results Component Value Date CKTOTAL 223 (H) 12/30/2022 TROPONIN: Lab Results Component Value Date TROPONINI 0.016 11/12/2023 TROPONINI 0.017 11/11/2023 TROPONINI 0.016 11/11/2023 Radiology: CXR: personally reviewed: Cardiac Tests: Transthoracic echocardiogram 07/19/2022 Interpretation Summary Left Ventricle: Left ventricle is moderately dilated. Mildly increased wall thickness. Severely reduced left ventricular systolic function. The EF by visual approximation is 25%. Global longitudinal strain is reduced. Severe global hypokinesis present. Indeterminate diastolic function due to atrial fibrillation. Right Ventricle: Right ventricle size is normal. Pacemaker lead present in the right ventricle. Moderately reduced systolic function. TAPSE is abnormal. TDI systolic excursion is abnormal. Mitral Valve: Mild (1+) regurgitation. Gene Type IIIb: Restricted leaflet motion in systole. Tricuspid Valve: Mild to moderate (1-2+) regurgitation. Moderately elevated RVSP. RVSP is 52 mmHg. Pulmonary Arteries: Pulmonary hypertension present. IVC/SVC: IVC is dilated. IVC diameter is dilated and decreases less than 50% during inspiration; therefore the estimated right atrial pressure is elevated (~15 mmHg). Kristin Maynard MD DATE of SERVICE: 11/12/2023 [facility] 11-12-2023 Consult note Associated Order (s): IP CONSULT TO CARDIOLOGY [facility] [place] [facility]/ Electrophysiology Consult Note Reason for Consult/Chief Complaint: HFREF, Patient used to take entresto and demedex, no longer using, need guidance on management and treatment for CHF History of Present Illness: Krystina Markham is a 68 y.o. male with history of heart failure with reduced ejection fraction, permanent atrial fibrillation on Eliquis, chronic obstructive lung disease, history of cor pulmonale, history of DVT/PE, smoker, obesity, obstructive sleep apnea syndrome, history of medication noncompliance, and alcohol abuse disorder. He has history of heart failure with reduced ejection fraction nonischemic cardiomyopathy with last documented ejection fraction of 25% based on transthoracic echocardiogram performed in 2021. 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 He has longstanding pulmonary hypertension as well as mild to moderate mitral regurgitation. He was last seen by his analytics director about a year ago. At that time, he was on Toprol-XL 100 daily, Crestor 40 daily, Entresto 49-51 mg twice daily, Aldactone 25 daily, and Demadex 20 mg twice daily. Last device check was on 10/02/2023 which showed normal device function, with underlying rhythm of atrial fibrillation, mode was VVIR. Battery longevity 4.5 years, V paced 100% with permanent atrial fibrillation. He presented to ED on 11/11/2023 with chief complaints of shortness of breath. He started with shortness of breath and wheezing a few weeks ago. Denies fevers chills or sick contacts. Denies chest pain or palpitations. He has been noncompliant with his medications. He drinks daily and continues to smoke half a pack daily. ECG showed atrial fibrillation, left bundle branch block. Cardiac troponin I was negative x 3. NT proBNP was 10,200. Chest x-ray consistent with vascular congestion with underlying COPD changes. Creatinine 1.44 with BUN of 8. Telemetry showed AF. Single short episode of VT. Last beer was yesterday. Continues to smoke daily. He is not sure of what medications he takes at home and doses. He has received Lasix 80 mg IV, Lasix 40 mg IV x 1. Assessment/Plan Heart failure with reduced ejection fraction-probably in acute decompensation related to medication noncompliance- Continue Toprol XL 100 mg BID, Aldactone 25 mg daily. Continue Crestor. Add Losartan 25 mg daily. Lasix 40 mg IV daily. Daily I/O charting. Daily weights. Check BMP daily. Repeat ECHO. Permanent AF- remains in AF, rate controlled. Continue Metoprolol XL and Eliquis. ETOH abuse- DT precautions. Past Medical History: Past Medical History: Diagnosis Date Alcohol consumption heavy 09/10/2015 Asthma Atrial fibrillation (CMS/HCC) (HCC) CHF (congestive heart failure) ([facility]) ([facility]) 01/31/2016 COPD (chronic obstructive pulmonary disease) ([facility]) 09/10/2015 Cor, pulmonale, acute ([facility]) ([facility]) Deep venous thrombosis ([facility]) 02/2016 Depression Hx of blood clots Obesity 09/10/2015 DELORES (obstructive sleep apnea) Pulmonary embolus ([facility]) 6 16 Raynaud phenomenon 09/10/2015 Smoker 09/10/2015 Past Surgical History: Past Surgical History: Procedure Laterality Date ABDOMINAL SURGERY BRONCHOSCOPY 02/25/2020 BRONCHOSCOPY (HISTORICAL) 02/25/2020 COLONOSCOPY 10/27/[address] CHEST ANGIOGRAM W AND/OR WO IV CONTRAST 07/12/2022 CT CHEST ANGIOGRAM W AND/OR WO IV CONTRAST 07/12/2022 [facility] CT IMAGING FINGER AMPUTATION Left HERNIA REPAIR NOSE SURGERY Family History: Family History Problem Relation Name Age of Onset Asthma Father defects Father Cancer Father Asthma Sister Heart disease Mother Heart disease Brother Pacemaker Mother defects Sister Cancer Mother Diabetes Mother Social History: Social History Tobacco Use Smoking status: Every Day Packs/day: 0.25 Years: 40.00 Additional pack years: 0.00 Total pack years: 10.00 Types: Cigarettes Start date: 1972 Smokeless tobacco: Never Tobacco comments: 8 cig daily Substance Use Topics Alcohol use: Yes Alcohol/week: 7.0 standard drinks of alcohol Types: 7 Cans of beer per week Comment: once beer daily Drug use: Never Medications: apixaban, 5 mg, Oral, BID folic acid, 1 mg, Oral, Daily furosemide, 40 mg, IntraVENous, BID ipratropium-albuterol, 3 mL, Nebulization, Q4H while awake metoprolol succinate XL, 100 mg, Oral, BID montelukast, 10 mg, Oral, qPM nicotine, 1 patch, TransDERmal, Daily Followed by [START ON 12/24/2023] nicotine, 1 patch, TransDERmal, Daily Followed by [START ON 01/07/2024] nicotine, 1 patch, TransDERmal, Daily predniSONE, 50 mg, Oral, Daily rosuvastatin, 40 mg, Oral, Nightly sertraline, 100 mg, Oral, q AM spironolactone, 25 mg, Oral, Nightly therapeutic multivitamin-minerals, 1 tablet, Oral, Daily thiamine, 100 mg, Oral, Daily tiotropium, 2 puff, Inhalation, Daily Allergies: Patient has no known allergies. Reviewed Review of Systems: All other systems were reviewed and are negative other than as noted in the HPI. Physical Examination: Vitals: Blood pressure (!) 145/68, pulse 102, temperature 36.8 C (98.2 F), temperature source Temporal, resp. rate 23, height 5' 9" (1.753 m), weight 184 lb (83.5 kg), SpO2 94%. @IODETAILS@ @[id number]@ Constitutional: No acute distress. Well-nourished. Well hydrated. Psychiatric: A &O x 3. Mood is normal. Affect is appropriate. Eyes: Pupils are equal and round; Conjunctiva are not injected; Sclera are non-icteric. ENMT: Ears/nose without external abnormalities. Oral mucosa is pink and moist. Neck: no JVD. No carotid bruits; No thyromegaly. Respiratory: Lungs reduced air entry at bases. Heart: irregularly irregular ; Normal S1 and S2. systolic murmur; No rub Vasc: Peripheral pulses intact. Abdomen: Normal BS, soft, non-tender Extremities/Skin: 1+ LE edema; Skin warm to touch and well perfused; skin itchy rash Musculoskeletal: Head - normocephalic. Neck - supple Laboratory Tests: Lab Results Component Value Date GLUCOSE 104 (H) 11/11/2023 CALCIUM 9.6 11/11/2023 NA 130 (L) 11/11/2023 K 4.1 11/11/2023 CO2 28 11/11/2023 CL 94 (L) 11/11/2023 BUN 8 (L) 11/11/2023 CREATININE 0.44 (L) 11/11/2023 Lab Results Component Value Date HGBA1C 5.9 (H) 07/17/2022 Lab Results Component Value Date TSH 2.568 07/16/2022 Lab Results Component Value Date CHOL 155 07/16/2022 Lab Results Component Value Date HDL 90 (H) 07/16/2022 Lab Results Component Value Date LDLCALC 54 07/16/2022 Lab Results Component Value Date TRIG 53 07/16/2022 No results found for: "CHOLHDL" No components found for: "NTPROBNP" Lab Results Component Value Date CKTOTAL 223 (H) 12/30/2022 TROPONIN: Lab Results Component Value Date TROPONINI 0.016 11/12/2023 TROPONINI 0.017 11/11/2023 TROPONINI 0.016 11/11/2023 Radiology: CXR: personally reviewed: Cardiac Tests: Transthoracic echocardiogram 07/19/2022 Interpretation Summary Left Ventricle: Left ventricle is moderately dilated. Mildly increased wall thickness. Severely reduced left ventricular systolic function. The EF by visual approximation is 25%. Global longitudinal strain is reduced. Severe global hypokinesis present. Indeterminate diastolic function due to atrial fibrillation. Right Ventricle: Right ventricle size is normal. Pacemaker lead present in the right ventricle. Moderately reduced systolic function. TAPSE is abnormal. TDI systolic excursion is abnormal. Mitral Valve: Mild (1+) regurgitation. Gene Type IIIb: Restricted leaflet motion in systole. Tricuspid Valve: Mild to moderate (1-2+) regurgitation. Moderately elevated RVSP. RVSP is 52 mmHg. Pulmonary Arteries: Pulmonary hypertension present. IVC/SVC: IVC is dilated. IVC diameter is dilated and decreases less than 50% during inspiration; therefore the estimated right atrial pressure is elevated (~15 mmHg). Kristin Maynard MD DATE of SERVICE: 11/12/2023 documented in this encounter [facility] 11-12-2023 Note NOTE: This result is for medical treatment only. Analysis performed using non-forensic procedures. [facility] 11-11-2023 History and physical note Images from the original note were not included. Medical Teaching Service History & Physical Patient: Krystina Markham : 1955 Acct: [id number] PCP: JAMIA SIERRA MD Admitting Physician: No admitting provider for patient encounter. Admission Date: 11/11/2023 No chief complaint on file. History of Presenting Illness: 68 y.o. male presented to the ED with SOB. PMHX of COPD, HFrEF (EF25%, biventricular ICD), Afib, tobacco use, alcohol use disorder, DELORES, depression. Patient has hx of poor medical compliance. Sx started few days ago with worsening SOB and wheezes. Has chronic smoker's cough, states that there has bene no change in quality or quantity of sputum. Has a mild headaches. Denies fever, chills, congestion, nausea, vomiting. States that he has been taking his medication but is unable to confirm which one he takes. Per ED report, patient has has been having sx for 5 days and not taken his home meds for few days. Drinks alcohol daily about 6x 12oz beers daily, 1 day ago had 3 x12oz beers and on day presentation denies having alcohol. Denies hx of withdrawal seizures or DT. Patient currently denies alcohol withdrawal sx. Currently smoking 1 pack every 2 days, trying to cut back. Denies use of illicit drug use. Past Medical History: Diagnosis Date Alcohol consumption heavy 09/10/2015 Asthma Atrial fibrillation ([facility] ([facility]) CHF (congestive heart failure) ([facility]) ([facility]) 01/31/2016 COPD (chronic obstructive pulmonary disease) ([facility]) 09/10/2015 Cor, pulmonale, acute ([facility]) ([facility]) Deep venous thrombosis ([facility]) 02/2016 Depression Hx of blood clots Obesity 09/10/2015 DELORES (obstructive sleep apnea) Pulmonary embolus ([facility]) 6 16 Raynaud phenomenon 09/10/2015 Smoker 09/10/2015 Past Surgical History: Procedure Laterality Date ABDOMINAL SURGERY BRONCHOSCOPY 02/25/2020 BRONCHOSCOPY (HISTORICAL) 02/25/2020 COLONOSCOPY 10/27/[address] CHEST ANGIOGRAM W AND/OR WO IV CONTRAST 07/12/2022 CT CHEST ANGIOGRAM W AND/OR WO IV CONTRAST 07/12/2022 [facility] CT IMAGING FINGER AMPUTATION Left HERNIA REPAIR NOSE SURGERY Social History Socioeconomic History Marital status: Spouse name: Not on file Number of children: Not on file Years of education: Not on file Highest education level: Not on file Occupational History Not on file Tobacco Use Smoking status: Every Day Packs/day: 0.25 Years: 40.00 Additional pack years: 0.00 Total pack years: 10.00 Types: Cigarettes Start date: 1972 Smokeless tobacco: Never Tobacco comments: 8 cig daily Substance and Sexual Activity Alcohol use: Yes Alcohol/week: 7.0 standard drinks of alcohol Types: 7 Cans of beer per week Comment: once beer daily Drug use: Never Sexual activity: Not on file Other Topics Concern Not on file Social History Narrative Not on file Social Determinants of Health Financial Resource Strain: Low Risk (01/07/2023) Overall Financial Resource Strain (CARDIA) Difficulty of Paying Living Expenses: Not hard at all Food Insecurity: No Food Insecurity (01/07/2023) Hunger Vital Sign Worried About Running Out of Food in the Last Year: Never true Ran Out of Food in the Last Year: Never true Transportation Needs: No Transportation Needs (01/07/2023) PRAPARE - Transportation Lack of Transportation (Medical): No Lack of Transportation (Non-Medical): No Physical Activity: Not on file Stress: Not on file Social Connections: Not on file Intimate Partner Violence: Not At Risk (12/29/2022) Humiliation, Afraid, Rape, and Kick questionnaire Fear of Current or Ex-Partner: No Emotionally Abused: No Physically Abused: No Sexually Abused: No Housing Stability: Not on file Family History Problem Relation Name Age of Onset Asthma Father defects Father Cancer Father Asthma Sister Heart disease Mother Heart disease Brother Pacemaker Mother defects Sister Cancer Mother Diabetes Mother No current facility-administered medications on file prior to encounter. Current Outpatient Medications on File Prior to Encounter Medication Sig Dispense Refill albuterol (2.5 MG/3ML) 0.083% nebulizer solution TAKE 3 MLS VIA NEBULIZATION ONCE NEEDED FOR WHEEZING OR SHORTNESS OF BREATH FOR UP TO 75 DOSES (Patient not taking: Reported on 11/11/2023) 75 mL 2 albuterol 108 (90 Base) MCG/ACT inhaler INHALE 2 PUFFS INTO LUNGS EVERY 6 HOURS NEEDED FOR WHEEZING OR SHORTNESS OF BREATH (Patient not taking: Reported on 11/11/2023) 18 each 2 [facility] B-1 100 MG tablet TAKE 1 TABLET BY MOUTH EVERY DAY (Patient not taking: Reported on 11/11/2023) 90 tablet 1 Eliquis 5 MG tablet Take 1 tablet (5 mg) by mouth 2 times daily. 60 tablet 2 folic acid (Folvite) 1 MG tablet TAKE 1 TABLET BY MOUTH ONCE DAILY IN THE MORNING (Patient not taking: Reported on 11/11/2023) 90 tablet 3 ipratropium-albuterol (Duo-Neb) 0.5-2.5 mg/3 mL nebulizer solution Take 3 mL by nebulization 2 times daily as needed for wheezing or shortness of breath. 1080 mL 0 magnesium oxide (Mag-Ox) 400 MG tablet Take 1 tablet by mouth in the morning. metoprolol succinate XL (Toprol-XL) 100 MG 24 hr tablet TAKE 1 TABLET (100 MG) BY MOUTH IN THE MORNING AND 1 TABLET (100 MG) BEFORE BEDTIME. DO NOT CRUSH OR CHEW.. 180 tablet 0 montelukast (Singulair) 10 MG tablet TAKE 1 TABLET BY MOUTH EVERY DAY IN THE EVENING (Patient not taking: Reported on 11/11/2023) 90 tablet 0 Multiple Vitamins-Minerals (Therapeutic-M/Lutein) tablet TAKE 1 TABLET BY MOUTH IN THE MORNING, 1 TABLET AT NOON, AND 1 TABLET BEFORE BEDTIME (Patient not taking: Reported on 11/11/2023) 90 tablet 11 rosuvastatin (Crestor) 40 MG tablet TAKE 1 TABLET BY MOUTH EVERY DAY NIGHTLY (Patient not taking: Reported on 11/11/2023) 90 tablet 3 sertraline (Zoloft) 100 MG tablet TAKE 1 TABLET (100 MG) BY MOUTH EVERY MORNING (Patient not taking: Reported on 11/11/2023) 90 tablet 0 spironolactone (Aldactone) 25 MG tablet Take 1 tablet (25 mg) by mouth Nightly. (Patient not taking: Reported on 11/11/2023) 90 tablet 1 tiotropium (Spiriva Respimat) 1.25 MCG/ACT inhaler Inhale 2 puffs daily. (Patient not taking: Reported on 11/11/2023) 4 g 1 torsemide (Demadex) 20 MG tablet Take 20 mg by mouth in the morning and 20 mg before bedtime. Allergies: Patient has no known allergies. Review of Systems Constitutional: Negative for chills and fever. HENT: Negative for congestion, postnasal drip, rhinorrhea and sore throat. Respiratory: Positive for cough (chronic smoker's cough), shortness of breath and wheezing. Cardiovascular: Positive for leg swelling. Negative for chest pain and palpitations. Gastrointestinal: Negative for abdominal pain, constipation, diarrhea, nausea and vomiting. Genitourinary: Negative for difficulty urinating and dysuria. Neurological: Positive for headaches. Negative for dizziness. Vitals: Vitals: 11/11/23202511/11/23202611/11/23 2202 11/11/23 2236 BP: (!) 151/90 (!) 152/88 Pulse: 79 94 98 Resp: 22 20 Temp: 36.8 C (98.2 F) TempSrc: Temporal SpO2: (!) 85% 100% 90% Weight: 184 lb (83.5 kg) Height: 5' 9" (1.753 m) Physical Exam Vitals and nursing note reviewed. Constitutional: General: He is not in acute distress. HENT: Head: Normocephalic and atraumatic. Nose: Nose normal. No congestion or rhinorrhea. Mouth/Throat: Mouth: Mucous membranes are dry. Cardiovascular: Rate and Rhythm: Tachycardia present. Rhythm irregular. Pulses: Normal pulses. Heart sounds: No murmur heard. Pulmonary: Effort: Pulmonary effort is normal. Comments: 3L NC O2, saturations mid 90s, conversation dyspnea present, Pursed lip breathing, smokers cough (chronic), crackles in the lower lobes. Expiratory wheezes diffusely. Abdominal: General: There is no distension. Palpations: Abdomen is soft. Tenderness: There is no abdominal tenderness. There is no guarding or rebound. Musculoskeletal: General: Normal range of motion. Right lower leg: Edema (+2 mid quintanilla) present. Left lower leg: Edema (+2 mid quintanilla) present. Skin: General: Skin is warm and dry. Capillary Refill: Capillary refill takes less than 2 seconds. Findings: Lesion (multiple scratch rojas over arms, healing scabs) present. Neurological: General: No focal deficit present. Mental Status: He is alert. Labs: Results for orders placed or performed during the hospital encounter of 11/11/23 NT PRO BNP Result Value Ref Range NT PRO BNP 10,200 (H) <20 - 300 pg/mL Basic metabolic panel Result Value Ref Range SODIUM 130 (L) 135 - 145 mmol/L POTASSIUM 4.1 3.5 - 5.1 mmol/L CHLORIDE 94 (L) 98 - 107 mmol/L CARBON DIOXIDE 28 22 - 30 mmol/L UREA NITROGEN 8 (L) 9 - 20 mg/dL CREATININE 0.44 (L) 0.66 - 1.25 mg/dL GLUCOSE 104 (H) 70 - 100 mg/dL CALCIUM 9.6 8.4 - 10.4 mg/dL ANION GAP 9 3 - 13 mmol/L eGFR >90.0 >60.0 mL/min/1.73m*2 Troponin, with Serial Reflex Result Value Ref Range TROPONIN I 0.016 <0.034 ng/mL CBC Result Value Ref Range Auto WBC 13.3 (H) 3.6 - 10.7 10*3/uL RBC 4.85 4.40 - 5.90 10*6/uL Hemoglobin 15.0 13.0 - 18.0 g/dL Hematocrit 43.1 40.0 - 52.0 % MCV 88.9 77.0 - 99.0 fL MCH 30.9 26.0 - 34.0 pg MCHC 34.8 30.5 - 36.0 % RDW 13.2 11.5 - 15.0 % Platelets 236 140 - 440 10*3/uL MPV 9.3 9.0 - 12.7 fL ECG 12 lead Result Value Ref Range Heart Rate 101 bpm QRSD Interval 178 ms QT Interval 425 ms QTC Interval 552 ms P [place] 0 degrees QRS [place] 166 degrees T Wave [place] 34 degrees VA Interval 0 ms ECG 12 lead Result Value Ref Range Heart Rate 117 bpm QRSD Interval 176 ms QT Interval 400 ms QTC Interval 558 ms P [place] 0 degrees QRS [place] 0 degrees T Wave [place] 82 degrees VA Interval 0 ms Radiology review: ECG 12 lead Atrial fibrillation Ventricular premature complex Left bundle branch block ST elevation secondary to IVCD XR chest 1 view Narrative: [facility] KRYST[facility]KHAM [facility] 1955 [id number] Exam Date/Time: 11/11/2023 20:50 Procedure: XR CHEST 1 VIEW Ordering Provider: PARIS JOSHUA Reason For Exam: shortness of breath, hypoxia CHEST PORTABLE CLINICAL INDICATION: shortness of breath, hypoxia TECHNIQUE: Portable chest x-ray(s). COMPARISON: December,. FINDINGS: Moderate cardiomegaly, mildly increased. Left-sided cardiac device again noted. Lungs show patchy and partially confluent opacities bilaterally, with central distribution and lower lobe predominance, increased from comparison. Mild blunting of right costophrenic angle suggesting very small pleural effusion, new from comparison. No apparent pneumothorax. Degenerative change again noted in the thoracic spine. Probable fracture in the left humeral neck partially visualized. Impression: 1. Findings which may represent vascular congestion, nonspecific infectious/inflammatory process and pneumonitis or chronic interstitial and fibrotic change, increased or with interval progression. Clinical correlation and follow-up as indicated. Report Dictated on Electronically Signed By: Alirio Gamboa MD Electronically Signed Date/Time: 11/11/2023 9:06 PM EDT ECG 12 lead Atrial fibrillation Ventricular premature complex Left bundle branch block ST elevation secondary to IVCD EKG: Afib and PVC, HR 117, QTC 558 ED medications: Medications azithromycin (Zithromax) 500 mg in sodium chloride 0.9 % 250 mL IVPB (ADD-Barnum) (500 mg IntraVENous New Bag 11/11/232234) ipratropium-albuterol (Duo-Neb) 0.5-2.5 mg/3 mL nebulizer solution 9 mL (9 mL Nebulization Given 11/11/232044) methylPREDNISolone sodium succinate (PF) (SOLU-Medrol) injection 125 mg (125 mg IntraVENous Given 11/11/232042) magnesium sulfate IVPB premix 2,000 mg (0 mg IntraVENous Stopped 11/11/232057) cefepime (Maxipime) 2,000 mg in sodium chloride 0.9 % 50 mL IVPB Mini-Bag Plus (0 mg IntraVENous Stopped 11/11/232223) furosemide (Lasix) injection 80 mg (80 mg IntraVENous Given 11/11/232147) albuterol (2.5 MG/3ML) 0.083% nebulizer solution 2.5 mg (2.5 mg Nebulization Given 11/11/232235) ED COURSE: Patient in respiratory distress on arrival satting in the mid 80s with expiratory wheezes and rhonchi and rales. Patient given 3x DuoNebs, IV Solu-Medrol 125mg, magnesium and placed on NIV. Patient was observed on NIV and titrated off to 6L then remained stable above 92% on 3L NC. Had improvement wheezing. Was given lasix 80mg IV. Started on cefepime and azithromycin. ASSESSMENT/PLAN: 1. SOB 2/2 COPDe vs HFrEFe with biventricular ICD implantation in 2019 Hx of cor pulmonale Patient has an ejection fraction of 25% per echo in July 2022. Severe global hypokinesis present. Mild to moderate right-sided systolic dysfunction. ICD check last performed on 10/02/2023: normal device fxn, afib ; elevated BNP 10K; PFT 2019 consistent with moderate small airway obstruction and emphysema - admit to tele - duoneb q4 hours and PRN - prednisone burst - continue cefepime and azithromycin, discontinue if infectious workup negative - Supplemental O2 Therapy, SpO2 goal 88-92% - 2 view CXR - Resp PCR - PNA PCR - Uag - procal - Daily CBC/CMP -vbg - nicotine patch - Prevention: Smoking cessation discussed and encouraged. 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 - monitor Na - folic acid - multivitamin - thiamine - ETOH and Ethyl gluconride - MAT - CIWA and PRN ativan if CIWA >8 Obstructive sleep apnea -AutoPap Depression -resume Zoloft 100 mg daily Hx of poor medical compliance FEN/GI/DVT: IVF: None Electrolytes: Monitor and replace per protocols Diet: Cardiac GI PPX: No DVT Prophylaxis: No prophylaxis/Already on anticoagulation: eliquis CODE STATUS: Full Problem list completed - Yes Case discussed with: Dr. Shayy Holguin MD Pager #: [phone] 11/11/2023 11:20 PM Associated attestation - Siria Dumont MD - 11/12/2023 7:55 AM EDT INDIRECT SUPERVISION THIS SERVICE IS TO BE BILLED UNDER THE PRIMARY CARE EXCEPTION (MODIFIER -GE) During or immediately after this visit, I discussed this case with the treating resident. Our discussion included the history obtained by the resident, the resident's exam findings, and the resident's treatment plan. The resident's note reflects the information we discussed, and I agree with the resident's assessment and treatment plan. [facility] 11-11-2023 History and physical note Images from the original note were not included. Medical Teaching Service History & Physical Patient: Krystina Markham : 1955 Acct: [id number] PCP: JAMIA SIERAR MD Admitting Physician: No admitting provider for patient encounter. Admission Date: 11/11/2023 No chief complaint on file. History of Presenting Illness: 68 y.o. male presented to the ED with SOB. PMHX of COPD, HFrEF (EF25%, biventricular ICD), Afib, tobacco use, alcohol use disorder, DELORES, depression. Patient has hx of poor medical compliance. Sx started few days ago with worsening SOB and wheezes. Has chronic smoker's cough, states that there has bene no change in quality or quantity of sputum. Has a mild headaches. Denies fever, chills, congestion, nausea, vomiting. States that he has been taking his medication but is unable to confirm which one he takes. Per ED report, patient has has been having sx for 5 days and not taken his home meds for few days. Drinks alcohol daily about 6x 12oz beers daily, 1 day ago had 3 x12oz beers and on day presentation denies having alcohol. Denies hx of withdrawal seizures or DT. Patient currently denies alcohol withdrawal sx. Currently smoking 1 pack every 2 days, trying to cut back. Denies use of illicit drug use. Past Medical History: Diagnosis Date Alcohol consumption heavy 09/10/2015 Asthma Atrial fibrillation ([facility] ([facility]) CHF (congestive heart failure) (CMS/HCC) ([facility]) 01/31/2016 COPD (chronic obstructive pulmonary disease) ([facility]) 09/10/2015 Cor, pulmonale, acute (CMS/HCC) ([facility]) Deep venous thrombosis ([facility]) 02/2016 Depression Hx of blood clots Obesity 09/10/2015 DELORES (obstructive sleep apnea) Pulmonary embolus ([facility]) 6 16 Raynaud phenomenon 09/10/2015 Smoker 09/10/2015 Past Surgical History: Procedure Laterality Date ABDOMINAL SURGERY BRONCHOSCOPY 02/25/2020 BRONCHOSCOPY (HISTORICAL) 02/25/2020 COLONOSCOPY 10/27/[address] CHEST ANGIOGRAM W AND/OR WO IV CONTRAST 07/12/2022 CT CHEST ANGIOGRAM W AND/OR WO IV CONTRAST 07/12/2022 [facility] CT IMAGING FINGER AMPUTATION Left HERNIA REPAIR NOSE SURGERY Social History Socioeconomic History Marital status: Spouse name: Not on file Number of children: Not on file Years of education: Not on file Highest education level: Not on file Occupational History Not on file Tobacco Use Smoking status: Every Day Packs/day: 0.25 Years: 40.00 Additional pack years: 0.00 Total pack years: 10.00 Types: Cigarettes Start date: 1972 Smokeless tobacco: Never Tobacco comments: 8 cig daily Substance and Sexual Activity Alcohol use: Yes Alcohol/week: 7.0 standard drinks of alcohol Types: 7 Cans of beer per week Comment: once beer daily Drug use: Never Sexual activity: Not on file Other Topics Concern Not on file Social History Narrative Not on file Social Determinants of Health Financial Resource Strain: Low Risk (01/07/2023) Overall Financial Resource Strain (CARDIA) Difficulty of Paying Living Expenses: Not hard at all Food Insecurity: No Food Insecurity (01/07/2023) Hunger Vital Sign Worried About Running Out of Food in the Last Year: Never true Ran Out of Food in the Last Year: Never true Transportation Needs: No Transportation Needs (01/07/2023) PRAPARE - Transportation Lack of Transportation (Medical): No Lack of Transportation (Non-Medical): No Physical Activity: Not on file Stress: Not on file Social Connections: Not on file Intimate Partner Violence: Not At Risk (12/29/2022) Humiliation, Afraid, Rape, and Kick questionnaire Fear of Current or Ex-Partner: No Emotionally Abused: No Physically Abused: No Sexually Abused: No Housing Stability: Not on file Family History Problem Relation Name Age of Onset Asthma Father defects Father Cancer Father Asthma Sister Heart disease Mother Heart disease Brother Pacemaker Mother defects Sister Cancer Mother Diabetes Mother No current facility-administered medications on file prior to encounter. Current Outpatient Medications on File Prior to Encounter Medication Sig Dispense Refill albuterol (2.5 MG/3ML) 0.083% nebulizer solution TAKE 3 MLS VIA NEBULIZATION ONCE NEEDED FOR WHEEZING OR SHORTNESS OF BREATH FOR UP TO 75 DOSES (Patient not taking: Reported on 11/11/2023) 75 mL 2 albuterol 108 (90 Base) MCG/ACT inhaler INHALE 2 PUFFS INTO LUNGS EVERY 6 HOURS NEEDED FOR WHEEZING OR SHORTNESS OF BREATH (Patient not taking: Reported on 11/11/2023) 18 each 2 [facility] B-1 100 MG tablet TAKE 1 TABLET BY MOUTH EVERY DAY (Patient not taking: Reported on 11/11/2023) 90 tablet 1 Eliquis 5 MG tablet Take 1 tablet (5 mg) by mouth 2 times daily. 60 tablet 2 folic acid (Folvite) 1 MG tablet TAKE 1 TABLET BY MOUTH ONCE DAILY IN THE MORNING (Patient not taking: Reported on 11/11/2023) 90 tablet 3 ipratropium-albuterol (Duo-Neb) 0.5-2.5 mg/3 mL nebulizer solution Take 3 mL by nebulization 2 times daily as needed for wheezing or shortness of breath. 1080 mL 0 magnesium oxide (Mag-Ox) 400 MG tablet Take 1 tablet by mouth in the morning. metoprolol succinate XL (Toprol-XL) 100 MG 24 hr tablet TAKE 1 TABLET (100 MG) BY MOUTH IN THE MORNING AND 1 TABLET (100 MG) BEFORE BEDTIME. DO NOT CRUSH OR CHEW.. 180 tablet 0 montelukast (Singulair) 10 MG tablet TAKE 1 TABLET BY MOUTH EVERY DAY IN THE EVENING (Patient not taking: Reported on 11/11/2023) 90 tablet 0 Multiple Vitamins-Minerals (Therapeutic-M/Lutein) tablet TAKE 1 TABLET BY MOUTH IN THE MORNING, 1 TABLET AT NOON, AND 1 TABLET BEFORE BEDTIME (Patient not taking: Reported on 11/11/2023) 90 tablet 11 rosuvastatin (Crestor) 40 MG tablet TAKE 1 TABLET BY MOUTH EVERY DAY NIGHTLY (Patient not taking: Reported on 11/11/2023) 90 tablet 3 sertraline (Zoloft) 100 MG tablet TAKE 1 TABLET (100 MG) BY MOUTH EVERY MORNING (Patient not taking: Reported on 11/11/2023) 90 tablet 0 spironolactone (Aldactone) 25 MG tablet Take 1 tablet (25 mg) by mouth Nightly. (Patient not taking: Reported on 11/11/2023) 90 tablet 1 tiotropium (Spiriva Respimat) 1.25 MCG/ACT inhaler Inhale 2 puffs daily. (Patient not taking: Reported on 11/11/2023) 4 g 1 torsemide (Demadex) 20 MG tablet Take 20 mg by mouth in the morning and 20 mg before bedtime. Allergies: Patient has no known allergies. Review of Systems Constitutional: Negative for chills and fever. HENT: Negative for congestion, postnasal drip, rhinorrhea and sore throat. Respiratory: Positive for cough (chronic smoker's cough), shortness of breath and wheezing. Cardiovascular: Positive for leg swelling. Negative for chest pain and palpitations. Gastrointestinal: Negative for abdominal pain, constipation, diarrhea, nausea and vomiting. Genitourinary: Negative for difficulty urinating and dysuria. Neurological: Positive for headaches. Negative for dizziness. Vitals: Vitals: 11/11/23202511/11/23202611/11/23 2202 11/11/23 2236 BP: (!) 151/90 (!) 152/88 Pulse: 79 94 98 Resp: 22 20 Temp: 36.8 C (98.2 F) TempSrc: Temporal SpO2: (!) 85% 100% 90% Weight: 184 lb (83.5 kg) Height: 5' 9" (1.753 m) Physical Exam Vitals and nursing note reviewed. Constitutional: General: He is not in acute distress. HENT: Head: Normocephalic and atraumatic. Nose: Nose normal. No congestion or rhinorrhea. Mouth/Throat: Mouth: Mucous membranes are dry. Cardiovascular: Rate and Rhythm: Tachycardia present. Rhythm irregular. Pulses: Normal pulses. Heart sounds: No murmur heard. Pulmonary: Effort: Pulmonary effort is normal. Comments: 3L NC O2, saturations mid 90s, conversation dyspnea present, Pursed lip breathing, smokers cough (chronic), crackles in the lower lobes. Expiratory wheezes diffusely. Abdominal: General: There is no distension. Palpations: Abdomen is soft. Tenderness: There is no abdominal tenderness. There is no guarding or rebound. Musculoskeletal: General: Normal range of motion. Right lower leg: Edema (+2 mid quintanilla) present. Left lower leg: Edema (+2 mid quintanilla) present. Skin: General: Skin is warm and dry. Capillary Refill: Capillary refill takes less than 2 seconds. Findings: Lesion (multiple scratch rojas over arms, healing scabs) present. Neurological: General: No focal deficit present. Mental Status: He is alert. Labs: Results for orders placed or performed during the hospital encounter of 11/11/23 NT PRO BNP Result Value Ref Range NT PRO BNP 10,200 (H) <20 - 300 pg/mL Basic metabolic panel Result Value Ref Range SODIUM 130 (L) 135 - 145 mmol/L POTASSIUM 4.1 3.5 - 5.1 mmol/L CHLORIDE 94 (L) 98 - 107 mmol/L CARBON DIOXIDE 28 22 - 30 mmol/L UREA NITROGEN 8 (L) 9 - 20 mg/dL CREATININE 0.44 (L) 0.66 - 1.25 mg/dL GLUCOSE 104 (H) 70 - 100 mg/dL CALCIUM 9.6 8.4 - 10.4 mg/dL ANION GAP 9 3 - 13 mmol/L eGFR >90.0 >60.0 mL/min/1.73m*2 Troponin, with Serial Reflex Result Value Ref Range TROPONIN I 0.016 <0.034 ng/mL CBC Result Value Ref Range Auto WBC 13.3 (H) 3.6 - 10.7 10*3/uL RBC 4.85 4.40 - 5.90 10*6/uL Hemoglobin 15.0 13.0 - 18.0 g/dL Hematocrit 43.1 40.0 - 52.0 % MCV 88.9 77.0 - 99.0 fL MCH 30.9 26.0 - 34.0 pg MCHC 34.8 30.5 - 36.0 % RDW 13.2 11.5 - 15.0 % Platelets 236 140 - 440 10*3/uL MPV 9.3 9.0 - 12.7 fL ECG 12 lead Result Value Ref Range Heart Rate 101 bpm QRSD Interval 178 ms QT Interval 425 ms QTC Interval 552 ms P [place] 0 degrees QRS [place] 166 degrees T Wave [place] 34 degrees VA Interval 0 ms ECG 12 lead Result Value Ref Range Heart Rate 117 bpm QRSD Interval 176 ms QT Interval 400 ms QTC Interval 558 ms P [place] 0 degrees QRS [place] 0 degrees T Wave [place] 82 degrees VA Interval 0 ms Radiology review: ECG 12 lead Atrial fibrillation Ventricular premature complex Left bundle branch block ST elevation secondary to IVCD XR chest 1 view Narrative: Patient Name: RASHI, KRYSTINA : 1955 Exam Date/Time: 11/11/2023 20:50 Procedure: XR CHEST 1 VIEW Ordering Provider: PARIS JOSHUA Reason For Exam: shortness of breath, hypoxia CHEST PORTABLE CLINICAL INDICATION: shortness of breath, hypoxia TECHNIQUE: Portable chest x-ray(s). COMPARISON: December,. FINDINGS: Moderate cardiomegaly, mildly increased. Left-sided cardiac device again noted. Lungs show patchy and partially confluent opacities bilaterally, with central distribution and lower lobe predominance, increased from comparison. Mild blunting of right costophrenic angle suggesting very small pleural effusion, new from comparison. No apparent pneumothorax. Degenerative change again noted in the thoracic spine. Probable fracture in the left humeral neck partially visualized. Impression: 1. Findings which may represent vascular congestion, nonspecific infectious/inflammatory process and pneumonitis or chronic interstitial and fibrotic change, increased or with interval progression. Clinical correlation and follow-up as indicated. Report Dictated on Electronically Signed By: Alirio Gamboa MD Electronically Signed Date/Time: 11/11/2023 9:06 PM EDT ECG 12 lead Atrial fibrillation Ventricular premature complex Left bundle branch block ST elevation secondary to IVCD EKG: Afib and PVC, HR 117, QTC 558 ED medications: Medications azithromycin (Zithromax) 500 mg in sodium chloride 0.9 % 250 mL IVPB (ADD-Barnum) (500 mg IntraVENous New Bag 11/11/232234) ipratropium-albuterol (Duo-Neb) 0.5-2.5 mg/3 mL nebulizer solution 9 mL (9 mL Nebulization Given 11/11/232044) methylPREDNISolone sodium succinate (PF) (SOLU-Medrol) injection 125 mg (125 mg IntraVENous Given 11/11/232042) magnesium sulfate IVPB premix 2,000 mg (0 mg IntraVENous Stopped 11/11/232057) cefepime (Maxipime) 2,000 mg in sodium chloride 0.9 % 50 mL IVPB Mini-Bag Plus (0 mg IntraVENous Stopped 11/11/232223) furosemide (Lasix) injection 80 mg (80 mg IntraVENous Given 11/11/232147) albuterol (2.5 MG/3ML) 0.083% nebulizer solution 2.5 mg (2.5 mg Nebulization Given 11/11/232235) ED COURSE: Patient in respiratory distress on arrival satting in the mid 80s with expiratory wheezes and rhonchi and rales. Patient given 3x DuoNebs, IV Solu-Medrol 125mg, magnesium and placed on NIV. Patient was observed on NIV and titrated off to 6L then remained stable above 92% on 3L NC. Had improvement wheezing. Was given lasix 80mg IV. Started on cefepime and azithromycin. ASSESSMENT/PLAN: 1. SOB 2/2 COPDe vs HFrEFe with biventricular ICD implantation in 2019 Hx of cor pulmonale Patient has an ejection fraction of 25% per echo in July 2022. Severe global hypokinesis present. Mild to moderate right-sided systolic dysfunction. ICD check last performed on 10/02/2023: normal device fxn, afib ; elevated BNP 10K; PFT 2019 consistent with moderate small airway obstruction and emphysema - admit to tele - duoneb q4 hours and PRN - prednisone burst - continue cefepime and azithromycin, discontinue if infectious workup negative - Supplemental O2 Therapy, SpO2 goal 88-92% - 2 view CXR - Resp PCR - PNA PCR - Uag - procal - Daily CBC/CMP -vbg - nicotine patch - Prevention: Smoking cessation discussed and encouraged. 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 - monitor Na - folic acid - multivitamin - thiamine - ETOH and Ethyl gluconride - MAT - CIWA and PRN ativan if CIWA >8 Obstructive sleep apnea -AutoPap Depression -resume Zoloft 100 mg daily Hx of poor medical compliance FEN/GI/DVT: IVF: None Electrolytes: Monitor and replace per protocols Diet: Cardiac GI PPX: No DVT Prophylaxis: No prophylaxis/Already on anticoagulation: eliquis CODE STATUS: Full Problem list completed - Yes Case discussed with: Dr. Shayy Holguin MD Pager #: [phone] 11/11/2023 11:20 PM Associated attestation - Siria Dumont MD - 11/12/2023 7:55 AM EDT INDIRECT SUPERVISION THIS SERVICE IS TO BE BILLED UNDER THE PRIMARY CARE EXCEPTION (MODIFIER -GE) During or immediately after this visit, I discussed this case with the treating resident. Our discussion included the history obtained by the resident, the resident's exam findings, and the resident's treatment plan. The resident's note reflects the information we discussed, and I agree with the resident's assessment and treatment plan. documented in this encounter [facility] 11-11-2023 Emergency department Note Pt placed on 6L NC. Duonebs started per Dr Baca. IV in progress. Pt feels SOB and visitor endorses pt has not been taking prescribed medications Mckenzie Puente RN 11/11/232219 [facility] 11-11-2023 Physician Emergency department Note Emergency Department Encounter [facility] ED Patient: Krystina Markham : 1955 Date of Evaluation: 11/11/2023 ED Supervising Physician: Mario Alberto Paris MD I personally evaluated Krystina Markham and made/approved the management plan and take responsibility for the patient management. This will serve as my Supervisory note and shared attestation. I did perform a substantive portion of the visit including all aspects of the Medical Decision Making. I wore appropriate PPE for the entirety of this encounter. In brief, Krystina Markham is a 68 y.o. that presents to the emergency department for evaluation of worsening shortness of breath and lower extremity edema. Patient states that he has had worsening shortness of breath severely over the last 5 days. Lower extremity edema worsening over the last couple of weeks. Patient with past medical history of COPD, CHF with previous episode of cor pulmonale, A-fib, previous PE. States that he stopped taking many of his medications recently to include his diuretic, anticoagulant, and other medications. Does not provide a reason why. Denies any recent injuries. Denies any fever or chills. Focused exam: Awake, alert, in obvious respiratory distress with tachypnea and shallow breathing. Tachycardic. Bilateral lower extremity pitting edema. Abdomen is soft, nondistended, nontender. Diffuse expiratory wheezing, scattered rhonchi, and dependent rales. Brief ED course/MDM: Patient presents with worsening shortness of breath over the last 5 days. Upon arrival he is in obvious respiratory distress. Diffuse expiratory wheezing with scattered rhonchi and dependent rales as well as bilateral lower extremity edema. DuoNebs and steroids initiated shortly after evaluation as well as BiPAP. Significant improvement on BiPAP. High suspicion for COPD exacerbation complicated by CHF exacerbation as well as a high index of suspicion for pneumonia, ACS also considered. Workup consisted of CBC, BMP, BNP, troponin, EKG, and chest x-ray. EKG per my interpretation shows atrial fibrillation with mildly elevated ventricular rate at [address] elevations, depressions, ectopy, or other concerning findings. Chest x-ray per my interpretation does show changes consistent with pneumonitis versus pneumonia as well and some pulmonary vascular congestion. Empiric antibiotics initiated in the ED based off of presenting complaint and past medical history as well as physical exam findings. Cefepime initiated. Lasix also initiated due to the obvious fluid overload with dependent rales and bilateral lower extremity pitting edema. CBC with elevated white blood cell count at 13.3, appears baseline for the patient. BMP with no significant derangements from the patient's baseline with fairly stable hyponatremia, hypochloremia. BNP is elevated at 10,200 confirming suspicion for acute on chronic congestive heart failure. Troponin is not elevated. Patient be admitted for continued attempt at fluid management and management of his COPD exacerbation. After. In the ED after DuoNeb administration he does have improved lung sounds though he continues to have scattered rhonchi and expiratory wheezing. Trial off BiPAP with good oxygenation on supplemental oxygen via nasal cannula. Diagnostics interpreted by me: Xray(s) as detailed above EKG; see my interpretation elsewhere in the chart I personally discussed the patient's management with other clinicians: none All diagnostic, treatment, and disposition decisions were made by myself in conjunction with the Resident. I also supervised singh portions of any procedures performed by the Resident. For all further details of the patient's emergency department visit, please see their documentation. (Comment: Please note this report has been produced using speech recognition software and may contain errors related to that system including errors in grammar, punctuation, and spelling, as well as words and phrases that may be inappropriate. If there are any questions or concerns please feel free to contact the dictating provider for clarification.) Mario Alberto Paris MD Acute Care [facility] Mario Alberto Paris MD 11/11/23 0721 [employer] Phone: 11-11-2023 Physician Emergency department Note EMERGENCY DEPARTMENT ENCOUNTER Pt Name: Krystina Markham Birthdate 1955 Date of evaluation: 11/11/2023 ED Provider: Yamini Barraza DO CHIEF COMPLAINT No chief complaint on file. HISTORY OF PRESENT ILLNESS (Location/Symptom, Timing/Onset, Context/Setting, Quality, Duration, Modifying Factors, Severity) Note limiting factors. I wore appropriate PPE for the entirety of this encounter. HPI Krystina Markham is a 68 y.o. who presents to the emergency department with shortness of breath and difficulty breathing as well as productive cough for the last 5 days. Also had worsening swelling in his legs. History of COPD, CHF. Has not been taking his medications for many days now. Family member at bedside providing most of the history as patient is only able to speak 1-2 words due to his shortness of breath. He denies any fevers chills congestion rhinorrhea or chest pain. Nursing Notes were reviewed. Limitations to history: Respiratory distress Outside historians: Family ex- at bedside REVIEW OF SYSTEMS Review of Systems Pertinent positives and negatives as per HPI. PAST MEDICAL HISTORY Past Medical History: Diagnosis Date Alcohol consumption heavy 09/10/2015 Asthma Atrial fibrillation (CMS/HCC) ([facility]) CHF (congestive heart failure) (CMS/HCC) ([facility]) 01/31/2016 COPD (chronic obstructive pulmonary disease) ([facility]) 09/10/2015 Cor, pulmonale, acute (CMS/HCC) ([facility]) Deep venous thrombosis ([facility]) 02/2016 Depression Hx of blood clots Obesity 09/10/2015 DELORES (obstructive sleep apnea) Pulmonary embolus ([facility]) 6 16 Raynaud phenomenon 09/10/2015 Smoker 09/10/2015 SURGICAL HISTORY Past Surgical History: Procedure Laterality Date ABDOMINAL SURGERY BRONCHOSCOPY 02/25/2020 BRONCHOSCOPY (HISTORICAL) 02/25/2020 COLONOSCOPY 10/27/[address] CHEST ANGIOGRAM W AND/OR WO IV CONTRAST 07/12/2022 CT CHEST ANGIOGRAM W AND/OR WO IV CONTRAST 07/12/2022 [facility] CT IMAGING FINGER AMPUTATION Left HERNIA REPAIR NOSE SURGERY CURRENT MEDICATIONS Previous Medications ALBUTEROL (2.5 MG/3ML) 0.083% NEBULIZER SOLUTION TAKE 3 MLS VIA NEBULIZATION ONCE NEEDED FOR WHEEZING OR SHORTNESS OF BREATH FOR UP TO 75 DOSES ALBUTEROL 108 (90 BASE) MCG/ACT INHALER INHALE 2 PUFFS INTO LUNGS EVERY 6 HOURS NEEDED FOR WHEEZING OR SHORTNESS OF BREATH CVS B-1 100 MG TABLET TAKE 1 TABLET BY MOUTH EVERY DAY ELIQUIS 5 MG TABLET Take 1 tablet (5 mg) by mouth 2 times daily. FOLIC ACID (FOLVITE) 1 MG TABLET TAKE 1 TABLET BY MOUTH ONCE DAILY IN THE MORNING IPRATROPIUM-ALBUTEROL (DUO-NEB) 0.5-2.5 MG/3 ML NEBULIZER SOLUTION Take 3 mL by nebulization 2 times daily as needed for wheezing or shortness of breath. MAGNESIUM OXIDE (MAG-OX) 400 MG TABLET Take 1 tablet by mouth in the morning. METOPROLOL SUCCINATE XL (TOPROL-XL) 100 MG 24 HR TABLET TAKE 1 TABLET (100 MG) BY MOUTH IN THE MORNING AND 1 TABLET (100 MG) BEFORE BEDTIME. DO NOT CRUSH OR CHEW.. MONTELUKAST (SINGULAIR) 10 MG TABLET TAKE 1 TABLET BY MOUTH EVERY DAY IN THE EVENING MULTIPLE VITAMINS-MINERALS (THERAPEUTIC-M/LUTEIN) TABLET TAKE 1 TABLET BY MOUTH IN THE MORNING, 1 TABLET AT NOON, AND 1 TABLET BEFORE BEDTIME ROSUVASTATIN (CRESTOR) 40 MG TABLET TAKE 1 TABLET BY MOUTH EVERY DAY NIGHTLY SERTRALINE (ZOLOFT) 100 MG TABLET TAKE 1 TABLET (100 MG) BY MOUTH EVERY MORNING SPIRONOLACTONE (ALDACTONE) 25 MG TABLET Take 1 tablet (25 mg) by mouth Nightly. TIOTROPIUM (SPIRIVA RESPIMAT) 1.25 MCG/ACT INHALER Inhale 2 puffs daily. TORSEMIDE (DEMADEX) 20 MG TABLET Take 20 mg by mouth in the morning and 20 mg before bedtime. ALLERGIES Patient has no known allergies. FAMILY HISTORY Family History Problem Relation Name Age of Onset Asthma Father defects Father Cancer Father Asthma Sister Heart disease Mother Heart disease Brother Pacemaker Mother defects Sister Cancer Mother Diabetes Mother SOCIAL HISTORY Social History Socioeconomic History Marital status: Tobacco Use Smoking status: Every Day Packs/day: 0.25 Years: 40.00 Additional pack years: 0.00 Total pack years: 10.00 Types: Cigarettes Start date: 1972 Smokeless tobacco: Never Tobacco comments: 8 cig daily Substance and Sexual Activity Alcohol use: Yes Alcohol/week: 7.0 standard drinks of alcohol Types: 7 Cans of beer per week Comment: once beer daily Drug use: Never Social Determinants of Health Financial Resource Strain: Low Risk (01/07/2023) Overall Financial Resource Strain (CARDIA) Difficulty of Paying Living Expenses: Not hard at all Food Insecurity: No Food Insecurity (01/07/2023) Hunger Vital Sign Worried About Running Out of Food in the Last Year: Never true Ran Out of Food in the Last Year: Never true Transportation Needs: No Transportation Needs (01/07/2023) PRAPARE - Transportation Lack of Transportation (Medical): No Lack of Transportation (Non-Medical): No Intimate Partner Violence: Not At Risk (12/29/2022) Humiliation, Afraid, Rape, and Kick questionnaire Fear of Current or Ex-Partner: No Emotionally Abused: No Physically Abused: No Sexually Abused: No SCREENINGS PHYSICAL EXAM ED Triage Vitals Temp Heart Rate Resp BP 03/11202611/11/23202611/11/23220111/11/232026 36.8 C (98.2 F) 79 22 (!) 151/90 SpO2 Temp Source Heart Rate Source Patient Position 11/11/23202611/11/23202611/11/232026 -- (!) 85 % Temporal Monitor BP Location FiO2 (%) -- 11/11/23 2100 100 % Physical Exam Vitals reviewed. Constitutional: General: He is not in acute distress. Appearance: He is obese. He is ill-appearing. HENT: Head: Normocephalic and atraumatic. Eyes: Conjunctiva/sclera: Conjunctivae normal. Cardiovascular: Rate and Rhythm: Regular rhythm. Tachycardia present. Pulses: Normal pulses. Heart sounds: Normal heart sounds. No murmur heard. Pulmonary: Effort: Respiratory distress present. Breath sounds: Wheezing (expiratory and inspiratory), rhonchi and rales present. Abdominal: Palpations: Abdomen is soft. Tenderness: There is no abdominal tenderness. There is no guarding or rebound. Musculoskeletal: General: No tenderness. Normal range of motion. Right lower leg: Edema (2+ pitting) present. Left lower leg: Edema (2+ pitting) present. Skin: Capillary Refill: Capillary refill takes more than 3 seconds. Neurological: General: No focal deficit present. Mental Status: He is alert. DIAGNOSTIC RESULTS RADIOLOGY (Per Emergency Physician): Interpretation per the Radiologist below, if available at the time of this note: XR chest 1 view Final Result 1. Findings which may represent vascular congestion, nonspecific infectious/inflammatory process and pneumonitis or chronic interstitial and fibrotic change, increased or with interval progression. Clinical correlation and follow-up as indicated. Report Dictated on Electronically Signed By: Alirio Gamboa MD Electronically Signed Date/Time: 11/11/2023 9:06 PM EDT LABS: Labs Reviewed NT PRO BNP - Abnormal Result Value NT PRO BNP 10,200 (*) BASIC METABOLIC PANEL - Abnormal SODIUM 130 (*) POTASSIUM 4.1 CHLORIDE 94 (*) CARBON DIOXIDE 28 UREA NITROGEN 8 (*) CREATININE 0.44 (*) GLUCOSE 104 (*) CALCIUM 9.6 ANION GAP 9 eGFR >90.0 CBC (HEMOGRAM) - Abnormal Auto WBC 13.3 (*) RBC 4.85 Hemoglobin 15.0 Hematocrit 43.1 MCV 88.9 MCH 30.9 MCHC 34.8 RDW 13.2 Platelets 236 MPV 9.3 TROPONIN, WITH SERIAL REFLEX - Normal TROPONIN I 0.016 Narrative: Patients with high levels of Biotin oral intake (ie >5 mg/day) may have falsely decreased Troponin levels. TROPONIN I TROPONIN I All other labs were within normal range or not returned as of this dictation. EMERGENCY DEPARTMENT COURSE and DIFFERENTIAL DIAGNOSIS/MDM: Vitals: Vitals: 11/11/23202511/11/23202611/11/23220111/11/232235 BP: (!) 151/90 (!) 152/88 Pulse: 79 94 98 Resp: 22 20 Temp: 36.8 C (98.2 F) TempSrc: Temporal SpO2: (!) 85% 100% 90% Weight: 83.5 kg (184 lb) Height: 1.753 m (5' 9") The patient presented with a chief complaint of shortness of breath. The differential diagnosis associated with this patient's presentation includes COPD exacerbation versus heart failure exacerbation versus pneumonia versus viral illness. Our workup consisted of ordering/reviewing labs, imaging. Patient in respiratory distress on arrival satting in the mid 80s with expiratory history wheezes as well as scattered rhonchi and rales. Patient given 3 DuoNebs, IV Solu-Medrol and placed on NIV. Also given magnesium. Patient was observed on NIV and titrated off. Had improvement wheezing so albuterol was ordered. Oxygen saturation remained above 92% on 3 L nasal cannula. Labs were notable for leukocytosis of 13.3. This plus the productive wet cough and rhonchi he has more concern for pneumonia so treat empirically for pneumonia. Does have a chronic hyponatremia. Troponin negative. BNP markedly elevated at 10,200. Given Lasix. Chest x-ray and EKG as below. Plan for admission to the floor for COPD and heart failure exacerbation. Diagnoses as of 11/11/232328 COPD exacerbation (HCC) Acute on chronic congestive heart failure, unspecified heart failure type (HCC) External records reviewed: Outpatient notes patient was last seen in the family medicine office on 01/07/2023. Was given referral to pulmonology as well as cardiology Diagnostics interpreted by me: EKG(s) Atrial fibrillation, PVC noted, left bundle branch block, no STEMI based on Sgarbossa criteria Xray(s) chest x-ray with cardiomegaly, cardiac device noted, pulmonary vascular congestion noted as well as probable infiltrate in the right lower lobe Discussions with other clinicians: Admitting team family medicine Chronic conditions impacting care: COPD and heart failure Social determinants of health affecting care: none ED Medications managed: Medications azithromycin (Zithromax) 500 mg in sodium chloride 0.9 % 250 mL IVPB (ADD-Barnum) (500 mg IntraVENous New Bag 11/11/232234) ipratropium-albuterol (Duo-Neb) 0.5-2.5 mg/3 mL nebulizer solution 9 mL (9 mL Nebulization Given 11/11/232044) methylPREDNISolone sodium succinate (PF) (SOLU-Medrol) injection 125 mg (125 mg IntraVENous Given 11/11/232042) magnesium sulfate IVPB premix 2,000 mg (0 mg IntraVENous Stopped 11/11/232057) cefepime (Maxipime) 2,000 mg in sodium chloride 0.9 % 50 mL IVPB Mini-Bag Plus (0 mg IntraVENous Stopped 11/11/232223) furosemide (Lasix) injection 80 mg (80 mg IntraVENous Given 11/11/232147) albuterol (2.5 MG/3ML) 0.083% nebulizer solution 2.5 mg (2.5 mg Nebulization Given 11/11/232235) Prescription drugs considered: None PROCEDURES: Unless otherwise noted below, none Procedures FINAL IMPRESSION 1. COPD exacerbation (HCC) 2. Acute on chronic congestive heart failure, unspecified heart failure type (HCC) DISPOSITION Admit 11/11/2023 10:58:51 PM PATIENT REFERRED TO: No follow-up provider specified. DISCHARGE MEDICATIONS: New Prescriptions No medications on file (Comment: Please note this report has been produced using speech recognition software and may contain errors related to that system including errors in grammar, punctuation, and spelling, as well as words and phrases that may be inappropriate. If there are any questions or concerns please feel free to contact the dictating provider for clarification.) Yamini Barraza DO (electronically signed) Emergency Medicine Provider Yamini Barraza DO Resident 11/11/23 [id number] [facility] 08-30-2023 Telephone encounter Note [facility] 08-30-2023 Miscellaneous Notes documented in this encounter [facility] 08-27-2023 Telephone encounter Note [facility] 08-27-2023 Miscellaneous Notes documented in this encounter [facility] 01-22-2023 Telephone encounter Note Discussed with Dr Foote please call pt for OV in [place] February 06 at 11AM [facility] 01-22-2023 Miscellaneous Notes Discussed with Dr Foote please call pt for OV in [place] February 06 at 11AM Unscheduled remote transmission for Atrial fib and low Biv pacing 24%. Permanent atrial fib presenting HR 100 bpm. Biv pacing 24% today, last check 56% time prior to that 77%. Tried to reach patient to see how how he is feeling left message asking him to let us know. documented in this encounter [facility] 01-21-2023 Telephone encounter Note Unscheduled remote transmission for Atrial fib and low Biv pacing 24%. Permanent atrial fib presenting HR 100 bpm. Biv pacing 24% today, last check 56% time prior to that 77%. Tried to reach patient to see how how he is feeling left message asking him to let us know. [facility] 01-08-2023 History of Present illness Narrative Subjective: Krystina is a 67 y.o. year old right hand dominant male who was injured about 2 weeks ago. (DOI 12/25/2022) Mechanism of injury was a fall outside. He denies previous trauma to this extremity. He denies new numbness or tingling since the injury. Pain at present is severe. Treatment to this point has consisted of ED, oxycodone, sling. Review of Systems Past Medical History: Diagnosis Date Alcohol consumption heavy 09/10/2015 Asthma Atrial fibrillation ([facility]) ([facility]) CHF (congestive heart failure) ([facility]) ([facility]) 01/31/2016 COPD (chronic obstructive pulmonary disease) ([facility]) 09/10/2015 Cor, pulmonale, acute (CMS/HCC) ([facility]) Deep venous thrombosis ([facility]) 02/2016 Depression Hx of blood clots Obesity 09/10/2015 DELORES (obstructive sleep apnea) Pulmonary embolus ([facility]) 6 16 Raynaud phenomenon 09/10/2015 Smoker 09/10/2015 Past Surgical History: Procedure Laterality Date ABDOMINAL SURGERY BRONCHOSCOPY 02/25/2020 BRONCHOSCOPY (HISTORICAL) 02/25/2020 COLONOSCOPY 10/27/[address] CHEST ANGIOGRAM W AND/OR WO IV CONTRAST 07/12/2022 CT CHEST ANGIOGRAM W AND/OR WO IV CONTRAST 07/12/2022 [facility] CT IMAGING FINGER AMPUTATION Left HERNIA REPAIR NOSE SURGERY Social History Socioeconomic History Marital status: Spouse name: Not on file Number of children: Not on file Years of education: Not on file Highest education level: Not on file Occupational History Not on file Tobacco Use Smoking status: Every Day Packs/day: 0.25 Years: 40.00 Pack years: 10.00 Types: Cigarettes Start date: 1972 Smokeless tobacco: Never Tobacco comments: 8 cig daily Substance and Sexual Activity Alcohol use: Yes Alcohol/week: 7.0 standard drinks Types: 7 Cans of beer per week Comment: once beer daily Drug use: Never Sexual activity: Not on file Other Topics Concern Not on file Social History Narrative Not on file Social Determinants of Health Financial Resource Strain: Low Risk Difficulty of Paying Living Expenses: Not hard at all Food Insecurity: No Food Insecurity Worried About Running Out of Food in the Last Year: Never true Ran Out of Food in the Last Year: Never true Transportation Needs: No Transportation Needs Lack of Transportation (Medical): No Lack of Transportation (Non-Medical): No Physical Activity: Not on file Stress: Not on file Social Connections: Not on file Intimate Partner Violence: Not At Risk Fear of Current or Ex-Partner: No Emotionally Abused: No Physically Abused: No Sexually Abused: No Housing Stability: Not on file Family History Problem Relation Name Age of Onset Asthma Father defects Father Cancer Father Asthma Sister Heart disease Mother Heart disease Brother Pacemaker Mother defects Sister Cancer Mother Diabetes Mother No Known Allergies Objective: BP 109/64 Pulse 66 Temp 36.2 C (97.2 F) Ht 5' 9" (1.753 m) Wt 198 lb (89.8 kg) BMI 29.24 kg/m Pt is a WD/WN male in no acute distress. Attention to the left arm shows the skin to be warm, dry and intact. Skin is otherwise without rashes or lesions. Ecchymosis: yes. Swelling: moderate. Overall limb alignment is grossly normal. Capillary refill is brisk to all digits. Sensation is intact to all dermatomes. XRAYS Plain films from the date of injury were reviewed and independently interpreted which show a impacted left proximal humerus fracture 2 views left shoulder done today show no significant increase in displacement. Fracture remains impacted and early healing is seen.. Assessment 1. Other closed displaced fracture of proximal end of left humerus, initial encounter Plan Orders Placed This Encounter Procedures External referral to Physical Therapy Both non-operative and operative treatment were discussed in general with review of the typical indications for surgery. Advantages and disadvantages of each were discussed. I recommend nonoperative treatment. We discussed the overall treatment course including first 2 weeks of immobilization using a sling with elbow range of motion only, initiation of gentle phase 1 at the 2-week nissa for the next 4 weeks. After 6 weeks as long as we see good healing we will advance PT and weightbearing at that time. We discussed the expected loss of range of motion and function given the fracture. Follow up in about 4 weeks (around 02/05/2023) for routine follow up with Ty.. Films at next visit: 2v shoulder. Electronically signed by Allan Duran M.D. 01/08/2023 at 8:41 AM. documented in this encounter [facility] 01-07-2023 Evaluation + Plan note Associated Problem(s): Chronic hyponatremia -Baseline Na 124-128 -Na below baseline seems to be due to nutritional deficiency per urine studies [facility] 01-07-2023 Miscellaneous Notes Associated Problem(s): Chronic hyponatremia -Baseline Na 124-128 -Na below baseline seems to be due to nutritional deficiency per urine studies Associated Problem(s): Alcohol abuse -Last drink day of admission 12/29/22 -Plans on drinking "socially" in the future -Encourage complete cessation of alcohol given patient's current pathologies and previous inability to curb intake Associated Problem(s): Tobacco abuse -down to 1/2 pack a day -Does not want more help at this time -Plans to cut down to 6 cigs per day by next appt in 4 weeks Associated Problem(s): Anemia in other chronic diseases classified elsewhere -B12/9 wnl Associated Problem(s): COPD (chronic obstructive pulmonary disease) (HCC) -Stable documented in this encounter [facility] 01-07-2023 Evaluation + Plan note Associated Problem(s): Alcohol abuse -Last drink day of admission 12/29/22 -Plans on drinking "socially" in the future -Encourage complete cessation of alcohol given patient's current pathologies and previous inability to curb intake [facility] 01-07-2023 Evaluation + Plan note Associated Problem(s): Tobacco abuse -down to 1/2 pack a day -Does not want more help at this time -Plans to cut down to 6 cigs per day by next appt in 4 weeks [facility] 01-07-2023 Evaluation + Plan note Associated Problem(s): Anemia in other chronic diseases classified elsewhere -B12/9 wnl [facility] 01-07-2023 Evaluation + Plan note Associated Problem(s): COPD (chronic obstructive pulmonary disease) (HCC) -Stable [facility] 01-07-2023 Telephone encounter Note Pt seen in office today 01/07/[address] Sierra[address] [facility] 01-07-2023 Miscellaneous Notes Pt seen in office today 01/07/[address] Sierra[address] . Initial Post-Hospital Follow Up Call Call within 2 business days of discharge: yes Patient: Krystina Markham Patient : 1955 Reason for Admission: head wound, abnormal labs, fx shoulder Discharge Date: 01/01/2023 Spoke with: Melodie Tavarez ex- with patient on speaker phone. Discharge department/facility: [facility] Pgy-ofzz-bi-face services provided: Assessment and support for treatment adherence and medication management - Did the patient get his medications filled and are they taking them as instructed from discharge? YES - Patient was encouraged to follow his discharge instructions from his recent hospital stay. YES - Does patient understand their discharge instructions? YES - Instructed patient to bring all medications and inhalers (if applicable) to all [facility] visits. YES Follow Up Future Appointments Date Time Provider Department Center 01/07/2023 8:45 AM Jamia Sierra MD [facility] FAMILY P None 03/06/2023 1:00 PM NEOCS LYNDSAY DEVICE RN 1 MG [facility] CV Lyndsay Alanis Keenan LPN Message released to patient as written. Patient's further questions if applicable: Were all questions from office addressed or relayed to the patient from encounter: Yes, Melodie called back stating she is aware of his apt on . She also states he can use her phone number for contact. LM for Melodie, pt's emergency contact to return call and provide a number for pt. MC message also sent to pt. Left message with patient's emergency contact due to patient not having a phone number listed. Patient needs KISHAN done. Appt is already scheduled. documented in this encounter [facility] 01-07-2023 History of Present illness Narrative Patient was able to ambulate safely to the examination room. Provider was not notified of possible fall risk Pt asked if they have been to specialist,been in ER /hospitalized or had testing since last visit. yes Images from the original note were not included. [facility] [address] [facility] [id number] Dept: [phone] Dept Loc: [phone] Visit type: Established patient Reason for Visit: transition of care (Hospital follow up ) Assessment and Plan 1. Chronic hyponatremia Assessment & Plan: -Baseline Na 124-128 -Na below baseline seems to be due to nutritional deficiency per urine studies Orders: - Comprehensive metabolic panel 2. Alcohol abuse Assessment & Plan: -Last drink day of admission 12/29/22 -Plans on drinking "socially" in the future -Encourage complete cessation of alcohol given patient's current pathologies and previous inability to curb intake 3. Tobacco abuse Assessment & Plan: -down to 1/2 pack a day -Does not want more help at this time -Plans to cut down to 6 cigs per day by next appt in 4 weeks 4. Colon cancer screening - Ambulatory referral to Gastroenterology 5. Need for vaccination for pneumococcus - Pneumococcal conjugate vaccine 20-valent IM 6. Anemia in other chronic diseases classified elsewhere Assessment & Plan: -B12/9 wnl Orders: - CBC auto differential - Iron and TIBC - Ferritin 7. Chronic bronchitis, unspecified chronic bronchitis type (HCC) Assessment & Plan: -Stable Orders: - [facility] [place] Patient was involved and agreeable in shared decision making. Follow up in about 4 weeks (around 02/04/2023) for hyponatermia and smoking cessation. Subjective Patient is a 67-year-old male who is here for hospital follow-up after severe hyponatremia. Patient has a baseline hyponatremia of 124-128 but presented with sodium of 115. Urine studies showed decreased sodium intake. Hyponatremia return to baseline after increased salt intake. Patient also has alcohol abuse which has led to his baseline hyponatremia. Patient avoiding mentioning how much alcohol he was taking. States that he has not drank since admission on 12/29/2022. States that he will remain sober for a period of time but plans on drinking "socially" in the future. When asked if he could maintain it socially patient had no answer. Patient currently smokes half a pack of cigarettes daily. He has been cutting down from 2 packs. Is continuing to cut down and does not want extra help at this time. Review of Systems Constitutional: Negative for activity change, fatigue and fever. HENT: Negative for sore throat. Respiratory: Positive for cough. Negative for shortness of breath. Cardiovascular: Negative for chest pain. Gastrointestinal: Negative for abdominal pain. Neurological: Negative for dizziness and headaches. Psychiatric/Behavioral: Negative for sleep disturbance. No Known Allergies Outpatient Medications Prior to Visit Medication Sig Dispense Refill acetaminophen (Tylenol) 500 MG tablet Take 2 tablets (1,000 mg) by mouth in the morning and 2 tablets (1,000 mg) at noon and 2 tablets (1,000 mg) before bedtime. 180 tablet 0 albuterol (2.5 MG/3ML) 0.083% nebulizer solution Take 3 mL (2.5 mg) by nebulization Once as needed for wheezing or shortness of breath for up to 75 doses. Take 3 mL (2.5 mg) by nebulization as needed for wheezing or shortness of breath. 75 mL 2 albuterol 108 (90 Base) MCG/ACT inhaler Inhale 2 puffs every 6 hours as needed for wheezing or shortness of breath. 18 each 2 [employer]S B-1 100 MG tablet TAKE 1 TABLET BY MOUTH EVERY DAY 90 tablet 1 folic acid (Folvite) 1 MG tablet Take 1 tablet (1 mg) by mouth in the morning. 30 tablet 11 ipratropium-albuterol (Duo-Neb) 0.5-2.5 mg/3 mL nebulizer solution Take 3 mL by nebulization 2 times daily as needed for wheezing or shortness of breath. 1080 mL 0 magnesium oxide (Mag-Ox) 400 MG tablet Take 1 tablet by mouth in the morning. montelukast (Singulair) 10 MG tablet Take 1 tablet (10 mg) by mouth every evening. 90 tablet 0 Multiple Vitamins-Minerals (Therapeutic-M/Lutein) tablet TAKE 1 TABLET BY MOUTH IN THE MORNING, 1 TABLET AT NOON, AND 1 TABLET BEFORE BEDTIME 90 tablet 11 oxyCODONE (Roxicodone) 5 MG immediate release tablet Take 1 tablet (5 mg) by mouth every 6 hours as needed for severe pain (7-10) for up to 7 days. 15 tablet 0 polyethylene glycol, PEG, 3350 (Miralax) 17 g packet Take 17 g by mouth daily. 30 packet 0 rosuvastatin (Crestor) 40 MG tablet Take 1 tablet (40 mg) by mouth Nightly. 90 tablet 1 sertraline (Zoloft) 100 MG tablet Take 1 tablet (100 mg) by mouth every morning. 90 tablet 0 spironolactone (Aldactone) 25 MG tablet Take 1 tablet (25 mg) by mouth Nightly. 90 tablet 1 tiotropium (Spiriva Respimat) 1.25 MCG/ACT inhaler Inhale 2 puffs daily. 4 g 1 torsemide (Demadex) 20 MG tablet Take 20 mg by mouth in the morning and 20 mg before bedtime. Eliquis 5 MG tablet Take 1 tablet (5 mg) by mouth 2 times daily. 60 tablet 2 ergocalciferol (Vitamin D2) 1.25 MG (27417 UT) capsule TAKE 1 CAPSULE BY MOUTH ONCE WEEKLY *DO NOT START BEFORE JUL 25 3 capsule 0 metoprolol succinate XL (Toprol-XL) 100 MG 24 hr tablet Take 1 tablet (100 mg) by mouth in the morning and 1 tablet (100 mg) before bedtime. Do not crush or chew.. 180 tablet 1 sacubitril-valsartan (Entresto) 49-51 MG tablet Take 1 tablet by mouth 2 times daily. 180 tablet 0 No facility-administered medications prior to visit. Patient Active Problem List Diagnosis Apical mural thrombus Paroxysmal atrial fibrillation (CMS/HCC) (HCC) History of rib fracture Cor pulmonale, acute (CMS/HCC) (HCC) Chronic hyponatremia Essential hypertension Compression fracture of thoracic vertebra with routine healing Osteoporosis Diverticulosis of large intestine without diverticulitis History of adenomatous polyp of colon Raynaud phenomenon COPD (chronic obstructive pulmonary disease) ([facility]) Venous stasis dermatitis of left lower extremity Current moderate episode of major depressive disorder without prior episode (HCC) Chest pain, unspecified type HFrEF (heart failure with reduced ejection fraction) ([facility]) ([facility] Hypochloremia Tobacco abuse Presence of implantable cardioverter-defibrillator (ICD) Alcohol abuse COPD exacerbation (HCC) Closed fracture of neck of left humerus with routine healing Anemia in other chronic diseases classified elsewhere Past Medical History: Diagnosis Date Alcohol consumption heavy 09/10/2015 Asthma Atrial fibrillation ([facility]) ([facility]) CHF (congestive heart failure) ([facility]) ([facility]) 01/31/2016 COPD (chronic obstructive pulmonary disease) ([facility]) 09/10/2015 Cor, pulmonale, acute ([facility]) ([facility] Deep venous thrombosis ([facility]) 02/2016 Depression Hx of blood clots Obesity 09/10/2015 DELORES (obstructive sleep apnea) Pulmonary embolus ([facility]) 6 16 Raynaud phenomenon 09/10/2015 Smoker 09/10/2015 Social History Tobacco Use Smoking status: Every Day Packs/day: 0.25 Years: 40.00 Pack years: 10.00 Types: Cigarettes Start date: 1972 Smokeless tobacco: Never Tobacco comments: 8 cig daily Substance Use Topics Alcohol use: Yes Alcohol/week: 7.0 standard drinks Types: 7 Cans of beer per week Comment: once beer daily Past Surgical History: Procedure Laterality Date ABDOMINAL SURGERY BRONCHOSCOPY 02/25/2020 BRONCHOSCOPY (HISTORICAL) 02/25/2020 COLONOSCOPY 10/27/[address] CHEST ANGIOGRAM W AND/OR WO IV CONTRAST 07/12/2022 CT CHEST ANGIOGRAM W AND/OR WO IV CONTRAST 07/12/2022 [facility] CT IMAGING FINGER AMPUTATION Left HERNIA REPAIR NOSE SURGERY Family History Problem Relation Name Age of Onset Asthma Father defects Father Cancer Father Asthma Sister Heart disease Mother Heart disease Brother Pacemaker Mother defects Sister Cancer Mother Diabetes Mother Health Maintenance Topic Date Due Hepatitis B Vaccines (1 of 3 - 3-dose series) Never done Medicare Annual Wellness (AWV) Never done COVID-19 Vaccine (1) Never done Hepatitis A Vaccines (1 of 2 - Risk 2-dose series) Never done Zoster Vaccines (1 of 2) Never done Bone Density Scan 11/08/2020 Colorectal Cancer Screening 10/27/2022 Depresssion Monitoring 01/22/2023 Diabetes Screening 07/17/2023 Echocardiogram 07/19/2023 Creatinine Level 01/02/2024 Potassium Level 01/02/2024 DTaP/Tdap/Td Vaccines (2 - Td or Tdap) 08/15/2024 Lipid Panel 07/16/2027 Influenza Vaccine Completed Pneumococcal Vaccine: 65+ Years Completed Hepatitis C Screening Completed HIB Vaccines Aged Out IPV Vaccines Aged Out Meningococcal Vaccine Aged Out Rotavirus Vaccines Aged Out HPV Vaccines Aged Out Objective BP 112/64 Pulse 82 Temp 36.5 C (97.7 F) (Temporal) Ht 5' 9" (1.753 m) Wt 198 lb 1.6 oz (89.9 kg) BMI 29.25 kg/m Physical Exam Vitals and nursing note reviewed. Constitutional: General: He is not in acute distress. HENT: Head: Mouth/Throat: Mouth: Mucous membranes are moist. Pharynx: Oropharynx is clear. Cardiovascular: Rate and Rhythm: Normal rate and regular rhythm. Pulses: Normal pulses. Heart sounds: Normal heart sounds. No murmur heard. Pulmonary: Effort: Pulmonary effort is normal. No respiratory distress. Breath sounds: Normal breath sounds. Abdominal: General: Bowel sounds are normal. Musculoskeletal: Right shoulder: Normal. Left shoulder: Tenderness and bony tenderness present. Decreased range of motion. Decreased strength. Normal pulse. Right upper arm: Normal. Left upper arm: Tenderness and bony tenderness present. Right elbow: Normal. Left elbow: Normal range of motion. No tenderness. Right forearm: Normal. Left forearm: No tenderness or bony tenderness. Right hand: Normal. Left hand: No tenderness. Normal range of motion. Normal capillary refill. Normal pulse. Right lower le+ Pitting Edema present. Left lower le+ Pitting Edema present. Comments: Patient unable to lift left arm past 20 degrees. There is bruising throughout the arm from the shoulders to fingertips. 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 Skin: General: Skin is warm and dry. Capillary Refill: Capillary refill takes less than 2 seconds. Neurological: General: No focal deficit present. Mental Status: He is alert and oriented to person, place, and time. Mental status is at baseline. Data Reviewed and Summarized Labs: Lab Results Component Value Date WBC 12.0 (H) 01/01/2023 HGB 9.1 (L) 01/01/2023 HCT 26.2 (L) 01/01/2023 PLT 186 01/01/2023 CHOL 155 07/16/2022 TRIG 53 07/16/2022 HDL 90 (H) 07/16/2022 ALT 81 (H) 01/01/2023 AST 38 01/01/2023 NA 126 (L) 01/01/2023 K 3.9 01/01/2023 CL 99 01/01/2023 CREATININE 0.56 (L) 01/01/2023 BUN 13 01/01/2023 CO2 27 01/01/2023 TSH 2.568 07/16/2022 INR 1.1 01/01/2023 Imaging/Testing: JAMIA SIERRA MD [facility] 01/07/23 3:02 PM Type: INDIRECT I have discussed the care of this patient with the resident . I have reviewed the med list,problem list and history. I have reviewed the note which reflects the information we discussed and agree with the assessment and plan Brief summary of history: and additional singh elements of the treatment plan include Chronically ill pt with hyponatremia ,severe hfref and aud with broken humerus requiring probably surgery. Has ortho appt pending. Discussed need for cardiac preop eval documented in this encounter [facility] 01-07-2023 Instructions Jamia Sierra MD - 01/07/2023 8:45 AM EDT [employer] Appoinments now required 1) Call 2) Online at [employer] 3) At site [facility] documented in this encounter [facility] 01-03-2023 Telephone encounter Note . T [facility] 01-03-2023 Telephone encounter Note Initial Post-Hospital Follow Up Call Call within 2 business days of discharge: yes Patient: Krystina Markham Patient : 1955 Reason for Admission: head wound, abnormal labs, fx shoulder Discharge Date: 01/01/2023 Spoke with: Melodie Tavarez ex- with patient on speaker phone. Discharge department/facility: [facility] Rjk-ofsg-py-face services provided: Assessment and support for treatment adherence and medication management - Did the patient get his medications filled and are they taking them as instructed from discharge? YES - Patient was encouraged to follow his discharge instructions from his recent hospital stay. YES - Does patient understand their discharge instructions? YES - Instructed patient to bring all medications and inhalers (if applicable) to all [facility] visits. YES Follow Up Future Appointments Date Time Provider Department Center 01/07/2023 8:45 AM Jamia Sierra MD [facility] FAMILY P None 03/06/2023 1:00 PM NEOCS LYNDSAY DEVICE RN 1 [facility] CV Lyndsay Alanis Keenan LPN [facility] 01-03-2023 Telephone encounter Note Message released to patient as written. Patient's further questions if applicable: Were all questions from office addressed or relayed to the patient from encounter: Yes, Melodie called back stating she is aware of his apt on . She also states he can use her phone number for contact. [facility] 01-03-2023 Telephone encounter Note LM for Melodie, pt's emergency contact to return call and provide a number for pt. MC message also sent to pt. T [facility] 01-02-2023 Telephone encounter Note Left message with patient's emergency contact due to patient not having a phone number listed. Patient needs KISHAN done. Appt is already scheduled. T [facility] 01-01-2023 Note Formatting of this n ote might be different from the original. [employer] following case for Discharge Needs. Patient discharged today returning to home. Unable to contact patient in hospital prior to leaving the hospital. PT recommend patient home with assist only. Patient ambulating with no difficulty. Patient is ordered NWB with LT UE with sling on. OT therapy recommend HHC however OT unable to stand alone. No HHC orders noted by physicians discharging patient today. Not sure patient is homebound. Patient may benefit from outpatient OT. Spoke to Melodie lawrence friend and she confirmed patient is declining need for HHC services at this time. Patient is actually staying with Melodie in her home and she is able to assist patient as needed. Reinforced with Melodie for patient to contact PCP if he changes his mind. This PACC is signing off. T [facility] 01-01-2023 Miscellaneous Notes Machine Precision Etcher following case for Discharge Needs. Patient discharged today returning to home. Unable to contact patient in hospital prior to leaving the hospital. PT recommend patient home with assist only. Patient ambulating with no difficulty. Patient is ordered NWB with LT UE with sling on. OT therapy recommend HHC however OT unable to stand alone. No HHC orders noted by physicians discharging patient today. Not sure patient is homebound. Patient may benefit from outpatient OT. Spoke to Melodie lawrence friend and she confirmed patient is declining need for HHC services at this time. Patient is actually staying with Melodie in her home and she is able to assist patient as needed. Reinforced with Melodie for patient to contact PCP if he changes his mind. This PACC is signing off. Images from the original note were not included. Care Management Progress Note Patient remains on 4 South today monitoring labs/lytes, NA at 125 and K+ 3.2, Hgb 8.9. FOBT ordered, serial BMP. ETOH withdraw with CIWA precautions continued. Reported fall at home with left shoulder pain/left humeral fx. Ortho stating no surgical intervention. Therapy to see, once patient has new sling per notes/LUE WB restriction. Patient continued on 2L O2 NC, weaning as tolerated. Discharge plan pending PT recommendations. HHC following. Possible home oxygen evaluation prior to discharge. Psychiatry consult. Discharge Milestones and Delays Expected Date/Time: 01/01/[address] discharge order Enter post-discharge transportation status Complete med reconciliation Case mgmt discharge readiness PT discharge readiness OT discharge readiness Expected Discharge History Expected Date/Time Set By Reviewed At 01/01/2023 SHAYLEE Gaston 12/31/2022 10:35 AM 12/31/2022 Alice Smith MD 12/29/2022 5:36 PM 12/31/2022 Alice Smith MD 12/29/2022 5:02 PM 01/01/2023 KLAUDIA May 12/29/2022 4:50 PM Length of Stay (Days): 2 GMLOS: No GMLOS Documented SW consult for discharge planning. Addiction medicine consulted and following. Patient has not had alcohol in over 24 hours prior to admission. No signs of symptoms of alcohol withdrawal, per chart. Weekend TCC completed initial case management assessment. Discharge plan pending. PT/OT pending. Ortho consulted. SW to follow for any other additional discharge needs. Machine Precision Etcher following case for Discharge Needs. Care Managment Initial Assessment Date: 12/30/2022 Patient Name: Krystina Markham : 1955 Patient Information Source of Information: Patient Name/Contact Information: MELODIE WORTHINGTON EX [phone] Cognition/Language: WFL - Within Functional Limits Permission given to speak with patient outbound call center representative/caregiver as indicated: Yes Confirmation of Payer with patient/family: Yes Payer Name: MEDICARE [place]: No Confirmation of Primary Care Physician: Confirmed PCP Name: [facility] Seen in last 2 years?: Yes Primary Caregiver: Self If assistance needed, confirmed caregiver ready, willing and able to care for patient at discharge: Confirmed with: Living Arrangements Current Residence: Apartment Number of Floors 1 Number of Entry Steps: 2 Bed/Bath Levels: Both first floor Facility: Facility Name: [facility] Plan to Return: Yes Lives with: Friends (lives with a "pedro luis") Support Systems: Friends/neighbors (ex , pedro luis) Activities of Daily Living Ambulation: Independent Bathing/Dressing: Independent Elimination/Continence/Toileting: Independent Feeding: Independent Who Assists with Activities of Daily Living: na Instrumental Activities of Daily Living Prescription Coverage: Yes Pharmacy Used: [facility] in [place] Medication Management: Independent Transportation/Shopping: Independent Transportation Mode: Car Needs Assistance with Transportation at Discharge: No (ex Melodie) Meal Preparation: Independent Laundry/Cleaning: Independent Finances/Bill Paying: Independent Communication: Independent Types of Care Services/Equipment Utilized Care Services: Dialysis Type: NA Durable Medical Equipment: Nebulizer Patient's Goal/Discharge Plan Patient expects to be discharged to: home Discharge Planning Actions: Continue to follow Patient's Choice Rights and [employer] and Collaborative Relationships Disclosed as Indicated for Post-Acute Care: NA Interdisciplinary Team Engagement: Home Health Care, PT/OT Social Work Referral for: Additional Information: Inpatient status from home with hyponatremia. Sodium was 115 upon arrival to [facility]. Per documentation patient drinks about a 12 pack of beer per day. Has left humeral fracture related to fall on 12/26. History of chf with EF of 25%. Ortho evaluated humeral fracture and no acute surgical intervention and have signed off. Initially admitted to ICU and will be transferred to medical floor later today. Addiction med consulted, pt/ot, daily labs, ciwa protocol, iiv fluids. Sodium this morning is 121. Discharge preparation checklist reviewed with patient. Lives at home with a pedro luis. States is independent in his adls. Denies home oxygen use. Currently requiring 2 liters with 91% saturation. Has nebulizer at home, but states needs medications for it. Did message MTS and updated them of this. Will need to monitor pt/ot evals and oxygen needs. Tentative discharge plan is home vs home with hhc vs snf. liner roll changer updated via [facility] and is following... Patricia Chase RN documented in this encounter [facility] 01-01-2023 Nurse Note Patient discharged in stable condition via wheelchair. Patient has all belongings. AVS reviewed. PIV removed. Tele box returned. Paper scripts given and 2 sent to home pharmacy. [facility] 01-01-2023 Nurse Note Patient discharged in stable condition via wheelchair. Patient has all belongings. AVS reviewed. PIV removed. Tele box returned. Paper scripts given and 2 sent to home pharmacy. documented in this encounter [facility] 01-01-2023 History of Present illness Narrative Nutrition Assessment Type and Reason for Visit: Initial, Consult (DT ref for poor PO) Nutrition Recommendations/Plan: Continue with Adult diet Regular Initiate Ensure high protein BID per MNT protocol. Ensure High Protein provides 160 kcals, 16 g protein per serving. If placed on fluid restriction, do not count Ensure towards limit. Protein content in ONS may help improve sodium levels. Provided pt with Ensure coupons for homegoing use. Please document pt's PO intakes via flowsheet to accurately assess PO intake adequacy. Monitor intakes, weights, and labs weekly. RD will follow. Malnutrition Assessment: Malnutrition Status: At risk for malnutrition (Comment) (ETOH hx) Context: Social/Environmental Circumstances Findings of the 6 clinical characteristics of malnutrition: Energy Intake: (Decreased protein intake with ETOH hx; Pt reports only eating 1 big meal/day) Weight Loss: No significant weight loss Body Fat Loss: No significant body fat loss Muscle Mass Loss: No significant muscle mass loss Fluid Accumulation: Mild Extremities Chucking Machine Set Up Operator Tool Strength: Not Performed Nutrition Assessment: Pt was admitted with CC of hyponatremia with significant ETOH use hx. Pt reportedly drinks 12 beers/day. Pt reported to RD that his appetite is "okay." Pt reports that normally only eats 1 big meal/day at home. Pt denies any weight loss; reports stable weights. Pt is hoping to discharge today; MD noted possibility later today. Pt does have a visible scalp laceration as a result of a fall at home prior to admission. Estimated Daily Nutrient Needs: Energy Requirements Based On: Kcal/kg Weight Used for Energy Requirements: [place] Weight for Energy Calculation (kg): 73 kg Total Energy Requirements (kcals/day): 2552-1314 kcals (25-30 kcals/kg) Weight Used for Protein Requirements: [place] Weight in Kg Used for Protein Requirements: 73 kg Estimated Total Protein (g/day): 73-88 (1-1.2g/kg) Estimated Daily Total Fluid (ml/day): per MD- still hyponatremic Nutrition Related Findings: non pitting BLE Edema; Na 125, Cr 0.58, Glucose 149, 126, 117, 118, Phos 2.4, Mag 1.9, Hgb 9.1, Hct 26.2 Wound Type: (abrasions/bruising, upper anterior traumatic head injury, left knee trauma) Current Nutrition Therapies: Adult diet Regular Current Oral Intake Average Meal Intake: Unable to assess Average Supplements Intake: None Ordered Anthropometric Measures: Height: 175.3 cm (5' 9") Current Body Weight: 86.2 kg (190 lb) Weight Source: Not Specified Admission Body Weight: 88.5 kg (195 lb) Usual Body Weight: 87.5 kg (193 lb) (07/25/22) % Weight Change (Calculated): -1.6 [place] Body Weight (lbs) (Calculated): 160 lbs [place] Body Weight (Kg) (Calculated): 73 kg % [place] Body Weight (Calculated): 118.8 % BMI (kg/m2) (Calculated): 28 Weight Adjustment For: No Adjustment BMI Categories: Overweight (BMI 25.0-29.9) Nutrition Diagnosis: Inadequate protein-energy intake related to psychological cause or life stress, other (comment) (ETOH use) as evidenced by poor intake prior to admission, lab values Altered nutrition-related lab values related to acute injury/trauma as evidenced by lab values Nutrition Interventions: Nutrition Education/Counseling: No recommendation at this time Coordination of Nutrition Care: Continue to monitor while inpatient Plan of Care discussed with: Pt Goals: Goals: PO intake 75% or greater, by next RD assessment, other (specify) Specify Other Goals: Labs will trend towards baseline Nutrition Monitoring and Evaluation: Behavioral-Environmental Outcomes: None Identified Food/Nutrient Intake Outcomes: Diet Advancement/Tolerance, Food and Nutrient Intake, Supplement Intake Physical Signs/Symptoms Outcomes: Biochemical Data, GI Status, Fluid Status or Edema, Nutrition Focused Physical Findings, Skin, Weight Discharge Planning: Continue current diet, Continue Oral Nutrition Supplement Kenji Hickey RD Contact: *[phone] or via Secure Chat Images from the original note were not included. Addiction Medicine Patient: Krystina Markham Admit Date: 12/29/2022 Primary Care Physician: JAMIA SIERRA MD History of Present Illness The patient continues to be monitored by chemical dependency services. In reviewing the records, he has not required any as needed lorazepam since 337 hours yesterday. Social History Socioeconomic History Marital status: Spouse name: Not on file Number of children: Not on file Years of education: Not on file Highest education level: Not on file Occupational History Not on file Tobacco Use Smoking status: Every Day Packs/day: 0.25 Years: 40.00 Pack years: 10.00 Types: Cigarettes Start date: 1972 Smokeless tobacco: Never Tobacco comments: 8 cig daily Substance and Sexual Activity Alcohol use: Yes Alcohol/week: 7.0 standard drinks Types: 7 Cans of beer per week Comment: once beer daily Drug use: Never Sexual activity: Not on file Other Topics Concern Not on file Social History Narrative Not on file Social Determinants of Health Financial Resource Strain: Not on file Food Insecurity: Not on file Transportation Needs: Not on file Physical Activity: Not on file Stress: Not on file Social Connections: Not on file Intimate Partner Violence: Not At Risk Fear of Current or Ex-Partner: No Emotionally Abused: No Physically Abused: No Sexually Abused: No Housing Stability: Not on file Past Medical History: Diagnosis Date Alcohol consumption heavy 09/10/2015 Asthma Atrial fibrillation ([facility] ([facility] CHF (congestive heart failure) ([facility]) ([facility]) 01/31/2016 COPD (chronic obstructive pulmonary disease) ([facility]) 09/10/2015 Cor, pulmonale, acute ([facility]) ([facility]) Deep venous thrombosis ([facility]) 02/2016 Depression Hx of blood clots Obesity 09/10/2015 DELORES (obstructive sleep apnea) Pulmonary embolus ([facility]) 6 16 Raynaud phenomenon 09/10/2015 Smoker 09/10/2015 Past Surgical History: Procedure Laterality Date ABDOMINAL SURGERY BRONCHOSCOPY 02/25/2020 BRONCHOSCOPY (HISTORICAL) 02/25/2020 COLONOSCOPY 10/27/[address] CHEST ANGIOGRAM W AND/OR WO IV CONTRAST 07/12/2022 CT CHEST ANGIOGRAM W AND/OR WO IV CONTRAST 07/12/2022 [facility] CT IMAGING FINGER AMPUTATION Left HERNIA REPAIR NOSE SURGERY Family History Problem Relation Name Age of Onset Asthma Father defects Father Cancer Father Asthma Sister Heart disease Mother Heart disease Brother Pacemaker Mother defects Sister Cancer Mother Diabetes Mother Labs Recent Results (from the past 48 hour(s)) Basic metabolic panel Collection Time: 12/30/22 4:40 PM Result Value Ref Range SODIUM 122 (L) 135 - 145 mmol/L POTASSIUM 3.4 (L) 3.5 - 5.1 mmol/L CHLORIDE 94 (L) 98 - 107 mmol/L CARBON DIOXIDE 30 22 - 30 mmol/L UREA NITROGEN 11 9 - 20 mg/dL CREATININE 0.57 (L) 0.66 - 1.25 mg/dL GLUCOSE 122 (H) 70 - 100 mg/dL CALCIUM 8.0 (L) 8.4 - 10.4 mg/dL ANION GAP -1 (L) 3 - 13 mmol/L eGFR >90.0 >60.0 mL/min/1.73m*2 Magnesium Collection Time: 12/30/22 4:40 PM Result Value Ref Range MAGNESIUM 2.1 1.6 - 2.3 mg/dL Osmolality, urine Collection Time: 12/30/22 6:13 PM Result Value Ref Range OSMOLALITY, URINE 361 300 - 1,000 mOsm/kg Sodium, urine, random Collection Time: 12/30/22 6:13 PM Result Value Ref Range SODIUM, URINE <5 (L) 30 - 90 mmol/L ECG 12 lead Collection Time: 12/30/22 7:38 PM Result Value Ref Range Heart Rate 76 bpm QRSD Interval 184 ms QT Interval 516 ms QTC Interval 581 ms P [place] 0 degrees QRS [place] 183 degrees T Wave [place] 125 degrees [place] Interval 228 ms Basic metabolic panel Collection Time: 12/30/22 8:06 PM Result Value Ref Range SODIUM 122 (L) 135 - 145 mmol/L POTASSIUM 3.2 (L) 3.5 - 5.1 mmol/L CHLORIDE 92 (L) 98 - 107 mmol/L CARBON DIOXIDE 29 22 - 30 mmol/L UREA NITROGEN 10 9 - 20 mg/dL CREATININE 0.54 (L) 0.66 - 1.25 mg/dL GLUCOSE 200 (H) 70 - 100 mg/dL CALCIUM 8.1 (L) 8.4 - 10.4 mg/dL ANION GAP 1 (L) 3 - 13 mmol/L eGFR >90.0 >60.0 mL/min/1.73m*2 Magnesium Collection Time: 12/30/22 8:06 PM Result Value Ref Range MAGNESIUM 2.0 1.6 - 2.3 mg/dL Phosphorus Collection Time: 12/30/22 8:06 PM Result Value Ref Range PHOSPHORUS 2.7 2.5 - 4.5 mg/dL Calcium, ionized Collection Time: 12/30/22 8:35 PM Result Value Ref Range Calcium, Ion 4.40 4.30 - 5.20 mg/dL PH, IONIZED CALCIUM 7.39 7.31 - 7.46 CBC auto differential Collection Time: 12/30/22 10:24 PM Result Value Ref Range Auto WBC 13.7 (H) 3.6 - 10.7 10*3/uL RBC 2.81 (L) 4.40 - 5.90 10*6/uL Hemoglobin 9.5 (L) 13.0 - 18.0 g/dL Hematocrit 27.6 (L) 40.0 - 52.0 % MCV 98.1 (H) 80.0 - 98.0 fL MCH 33.6 26.0 - 34.0 pg MCHC 34.2 32.0 - 36.0 % RDW 13.6 11.5 - 14.5 % Platelets 172 140 - 440 10*3/uL MPV 7.6 7.4 - 12.4 fL nRBC 0.0 0.0 - 2.0 /100 WBCs Neutrophils Relative 86.8 (H) 40.0 - 80.0 % Lymphocytes Relative 5.0 (L) 20.0 - 40.0 % Monocytes Relative 7.7 2.0 - 10.0 % Eosinophils Relative 0.3 (L) 1.0 - 6.0 % Basophils Relative 0.2 0.0 - 2.0 % Neutrophils Absolute 11.9 (H) 1.8 - 7.0 10*3/uL Lymphocytes Absolute 0.7 (L) 1.0 - 4.3 10*3/uL Monocytes Absolute 1.1 (H) 0.0 - 0.8 10*3/uL Eosinophils Absolute 0.0 0.0 - 0.5 10*3/uL Basophils Absolute 0.0 0.0 - 0.2 10*3/uL Comprehensive metabolic panel Collection Time: 12/31/22 3:00 AM Result Value Ref Range SODIUM 125 (L) 135 - 145 mmol/L POTASSIUM 3.2 (L) 3.5 - 5.1 mmol/L CHLORIDE 97 (L) 98 - 107 mmol/L CARBON DIOXIDE 26 22 - 30 mmol/L ANION GAP 3 3 - 13 mmol/L UREA NITROGEN 10 9 - 20 mg/dL CREATININE 0.49 (L) 0.66 - 1.25 mg/dL GLUCOSE 107 (H) 70 - 100 mg/dL CALCIUM 7.4 (L) 8.4 - 10.4 mg/dL AST (SGOT) 40 15 - 46 U/L ALT 20 0 - 49 U/L ALKALINE PHOSPHATASE 67 38 - 126 U/L ALBUMIN 2.8 (L) 3.5 - 5.0 g/dL BILIRUBIN, TOTAL 0.7 0.2 - 1.3 mg/dL TOTAL PROTEIN 5.2 (L) 6.3 - 8.2 g/dL eGFR >90.0 >60.0 mL/min/1.73m*2 PROTIME/INR & PTT Collection Time: 12/31/22 3:00 AM Result Value Ref Range PROTHROMBIN TIME 13.3 (H) 9.0 - 12.0 s INR 1.2 (H) 0.9 - 1.1 APTT 37.6 (H) 20.0 - 30.5 s CBC auto differential Collection Time: 12/31/22 3:00 AM Result Value Ref Range Auto WBC 14.5 (H) 3.6 - 10.7 10*3/uL RBC 2.70 (L) 4.40 - 5.90 10*6/uL Hemoglobin 8.9 (L) 13.0 - 18.0 g/dL Hematocrit 26.4 (L) 40.0 - 52.0 % MCV 97.5 80.0 - 98.0 fL MCH 33.0 26.0 - 34.0 pg MCHC 33.9 32.0 - 36.0 % RDW 13.9 11.5 - 14.5 % Platelets 181 140 - 440 10*3/uL MPV 7.9 7.4 - 12.4 fL nRBC 0.0 0.0 - 2.0 /100 WBCs Neutrophils Relative 85.8 (H) 40.0 - 80.0 % Lymphocytes Relative 4.3 (L) 20.0 - 40.0 % Monocytes Relative 9.2 2.0 - 10.0 % Eosinophils Relative 0.4 (L) 1.0 - 6.0 % Basophils Relative 0.3 0.0 - 2.0 % Neutrophils Absolute 12.4 (H) 1.8 - 7.0 10*3/uL Lymphocytes Absolute 0.6 (L) 1.0 - 4.3 10*3/uL Monocytes Absolute 1.3 (H) 0.0 - 0.8 10*3/uL Eosinophils Absolute 0.1 0.0 - 0.5 10*3/uL Basophils Absolute 0.1 0.0 - 0.2 10*3/uL ECG 12 lead Collection Time: 12/31/22 7:17 AM Result Value Ref Range Heart Rate 82 bpm QRSD Interval 174 ms QT Interval 472 ms QTC Interval 552 ms P [place] 0 degrees QRS [place] 248 degrees T Wave [place] 116 degrees [place] Interval 186 ms ECG 12 lead Collection Time: 12/31/22 9:37 AM Result Value Ref Range Heart Rate 77 bpm QRSD Interval 188 ms QT Interval 500 ms QTC Interval 567 ms P [place] degrees QRS [place] -72 degrees T Wave [place] 138 degrees [place] Interval ms Basic metabolic panel Collection Time: 12/31/22 4:22 PM Result Value Ref Range SODIUM 124 (L) 135 - 145 mmol/L POTASSIUM 4.1 3.5 - 5.1 mmol/L CHLORIDE 95 (L) 98 - 107 mmol/L CARBON DIOXIDE 29 22 - 30 mmol/L UREA NITROGEN 10 9 - 20 mg/dL CREATININE 0.56 (L) 0.66 - 1.25 mg/dL GLUCOSE 118 (H) 70 - 100 mg/dL CALCIUM 8.0 (L) 8.4 - 10.4 mg/dL ANION GAP 0 (L) 3 - 13 mmol/L eGFR >90.0 >60.0 mL/min/1.73m*2 Basic metabolic panel Collection Time: 12/31/22 10:50 PM Result Value Ref Range SODIUM 125 (L) 135 - 145 mmol/L POTASSIUM 4.2 3.5 - 5.1 mmol/L CHLORIDE 98 98 - 107 mmol/L CARBON DIOXIDE 27 22 - 30 mmol/L UREA NITROGEN 13 9 - 20 mg/dL CREATININE 0.66 0.66 - 1.25 mg/dL GLUCOSE 117 (H) 70 - 100 mg/dL CALCIUM 8.1 (L) 8.4 - 10.4 mg/dL ANION GAP 0 (L) 3 - 13 mmol/L eGFR >90.0 >60.0 mL/min/1.73m*2 PROTIME/INR & PTT Collection Time: 01/01/23 2:55 AM Result Value Ref Range PROTHROMBIN TIME 12.2 (H) 9.0 - 12.0 s INR 1.1 0.9 - 1.1 APTT 36.9 (H) 20.0 - 30.5 s Magnesium Collection Time: 01/01/23 2:55 AM Result Value Ref Range MAGNESIUM 1.9 1.6 - 2.3 mg/dL Phosphorus Collection Time: 01/01/23 2:55 AM Result Value Ref Range PHOSPHORUS 2.4 (L) 2.5 - 4.5 mg/dL CBC auto differential Collection Time: 01/01/23 2:55 AM Result Value Ref Range Auto WBC 12.0 (H) 3.6 - 10.7 10*3/uL RBC 2.68 (L) 4.40 - 5.90 10*6/uL Hemoglobin 9.1 (L) 13.0 - 18.0 g/dL Hematocrit 26.2 (L) 40.0 - 52.0 % MCV 97.6 80.0 - 98.0 fL MCH 34.0 26.0 - 34.0 pg MCHC 34.8 32.0 - 36.0 % RDW 13.8 11.5 - 14.5 % Platelets 186 140 - 440 10*3/uL MPV 8.2 7.4 - 12.4 fL nRBC 0.0 0.0 - 2.0 /100 WBCs Neutrophils Relative 78.7 40.0 - 80.0 % Lymphocytes Relative 8.6 (L) 20.0 - 40.0 % Monocytes Relative 11.1 (H) 2.0 - 10.0 % Eosinophils Relative 1.3 1.0 - 6.0 % Basophils Relative 0.3 0.0 - 2.0 % Neutrophils Absolute 9.5 (H) 1.8 - 7.0 10*3/uL Lymphocytes Absolute 1.0 1.0 - 4.3 10*3/uL Monocytes Absolute 1.3 (H) 0.0 - 0.8 10*3/uL Eosinophils Absolute 0.2 0.0 - 0.5 10*3/uL Basophils Absolute 0.0 0.0 - 0.2 10*3/uL Comprehensive metabolic panel Collection Time: 01/01/23 2:55 AM Result Value Ref Range SODIUM 125 (L) 135 - 145 mmol/L POTASSIUM 4.1 3.5 - 5.1 mmol/L CHLORIDE 98 98 - 107 mmol/L CARBON DIOXIDE 25 22 - 30 mmol/L ANION GAP 2 (L) 3 - 13 mmol/L UREA NITROGEN 13 9 - 20 mg/dL CREATININE 0.66 0.66 - 1.25 mg/dL GLUCOSE 126 (H) 70 - 100 mg/dL CALCIUM 8.1 (L) 8.4 - 10.4 mg/dL AST (SGOT) 38 15 - 46 U/L ALT 81 (H) 0 - 49 U/L ALKALINE PHOSPHATASE 81 38 - 126 U/L ALBUMIN 2.8 (L) 3.5 - 5.0 g/dL BILIRUBIN, TOTAL 0.7 0.2 - 1.3 mg/dL TOTAL PROTEIN 5.2 (L) 6.3 - 8.2 g/dL eGFR >90.0 >60.0 mL/min/1.73m*2 Basic metabolic panel Collection Time: 01/01/23 6:30 AM Result Value Ref Range SODIUM 125 (L) 135 - 145 mmol/L POTASSIUM 4.4 3.5 - 5.1 mmol/L CHLORIDE 98 98 - 107 mmol/L CARBON DIOXIDE 23 22 - 30 mmol/L UREA NITROGEN 13 9 - 20 mg/dL CREATININE 0.58 (L) 0.66 - 1.25 mg/dL GLUCOSE 149 (H) 70 - 100 mg/dL CALCIUM 8.2 (L) 8.4 - 10.4 mg/dL ANION GAP 4 3 - 13 mmol/L eGFR >90.0 >60.0 mL/min/1.73m*2 Medications Home Meds: Prior to Admission medications Medication Sig Start Date End Date Taking? Authorizing Provider albuterol (2.5 MG/3ML) 0.083% nebulizer solution Take 3 mL (2.5 mg) by nebulization as needed for wheezing or shortness of breath. 09/14/22 12/13/22 Harman Thompson MD albuterol 108 (90 Base) MCG/ACT inhaler INHALE 2 PUFFS EVERY 6 HOURS NEEDED FOR WHEEZING OR SHORTNESS OF BREATH. 08/21/22 09/20/22 Jose M Wiggins MD [facility] B-1 100 MG tablet TAKE 1 TABLET BY MOUTH EVERY DAY 11/29/22 Jamia Sierra MD Eliquis 5 MG tablet Take 1 tablet (5 mg) by mouth 2 times daily. 09/21/22 12/20/22 Jamia Sierra MD ergocalciferol (Vitamin D2) 1.25 MG (82660 UT) capsule TAKE 1 CAPSULE BY MOUTH ONCE WEEKLY *DO NOT START BEFORE JUL 25 12/21/22 Jamia Sierra MD folic acid (Folvite) 1 MG tablet Take 1 tablet (1 mg) by mouth in the morning. 07/19/22 07/19/23 Lan Villegas MD ipratropium-albuterol (Duo-Neb) 0.5-2.5 mg/3 mL nebulizer solution Take 3 mL by nebulization 2 times daily as needed for wheezing or shortness of breath. 09/14/22 12/13/22 Harman Thompson MD magnesium oxide (Mag-Ox) 400 MG tablet Take 1 tablet by mouth in the morning. 04/09/22 Erick ProviderMD metoprolol succinate XL (Toprol-XL) 100 MG 24 hr tablet Take 1 tablet (100 mg) by mouth in the morning and 1 tablet (100 mg) before bedtime. Do not crush or chew.. 07/30/22 10/28/22 PRIYA Perez CNP montelukast (Singulair) 10 MG tablet Take 1 tablet (10 mg) by mouth every evening. 11/20/22 02/18/23 Jamia Sierra MD Multiple Vitamins-Minerals (Therapeutic-M/Lutein) tablet TAKE 1 TABLET BY MOUTH IN THE MORNING, 1 TABLET AT NOON, AND 1 TABLET BEFORE BEDTIME 08/14/22 Jamia Sierra MD oxyCODONE-acetaminophen (Percocet) 5-325 MG tablet Take 1 tablet by mouth every 6 hours as needed for severe pain (7-10) for up to 4 days. 12/26/22 12/30/22 Kalia Foote MD rosuvastatin (Crestor) 40 MG tablet Take 1 tablet (40 mg) by mouth Nightly. 07/30/22 07/30/23 PRIYA Perez CNP sacubitril-valsartan (Entresto) 49-51 MG tablet Take 1 tablet by mouth 2 times daily. 09/14/22 12/13/22 Harman Thompson MD sertraline (Zoloft) 100 MG tablet Take 1 tablet (100 mg) by mouth every morning. 11/20/22 02/18/23 Jamia Sierra MD spironolactone (Aldactone) 25 MG tablet Take 1 tablet (25 mg) by mouth Nightly. 07/30/22 PRIYA Perez CNP tiotropium (Spiriva Respimat) 1.25 MCG/ACT inhaler Inhale 2 puffs daily. 09/14/22 Harman Thompson MD torsemide (Demadex) 20 MG tablet Take 20 mg by mouth in the morning and 20 mg before bedtime. 07/09/22 Historical Provider, Inpatient Scheduled Meds: acetaminophen, 1,000 mg, Oral, q8h Or Acetaminophen, 1,000 mg, Per G Tube, q8h apixaban, 5 mg, Oral, BID folic acid, 1 mg, Oral, Daily ipratropium-albuterol, 3 mL, Nebulization, BID metoprolol succinate XL, 100 mg, Oral, BID montelukast, 10 mg, Oral, qPM nicotine, 1 patch, TransDERmal, Daily Followed by [START ON 02/09/2023] nicotine, 1 patch, TransDERmal, Daily Followed by [START ON 02/23/2023] nicotine, 1 patch, TransDERmal, Daily pantoprazole, 40 mg, Oral, q AM Potassium Bicarb-Citric Acid, 20 mEq, Oral, Daily rosuvastatin, 40 mg, Oral, Nightly sacubitril-valsartan, 1 tablet, Oral, BID senna-docusate sodium, 1 tablet, Oral, BID sertraline, 100 mg, Oral, q AM spironolactone, 25 mg, Oral, Nightly therapeutic multivitamin-minerals, 1 tablet, Oral, Daily Thiamine Mononitrate, 100 mg, Oral, Daily Inpatient PRN Meds: PRN medications: albuterol, ipratropium-albuterol, LORazepam, oxyCODONE, polyethylene glycol (PEG) 3350, promethazine OR promethazine OR promethazine Exam Vitals: 12/31/22 1943 12/31/22 2322 01/01/23 0312 01/01/23 0819 BP: 101/61 97/65 130/73 133/82 BP Location: Right arm Right arm Right arm Patient Position: Lying Lying Sitting Pulse: 84 75 94 75 Resp: 16 16 16 16 Temp: 37.1 C (98.7 F) 37.1 C (98.8 F) 37.2 C (98.9 F) 36.2 C (97.1 F) TempSrc: Temporal Temporal Temporal Temporal SpO2: 92% 90% 95% 96% Weight: Height: Physical Exam On approaching the patient, he remains bedridden, fatigued, moderately sedated. Very slow to arouse to questions. He is not flushed or diaphoretic. There are no overt resting tremors. No overt auditory, tactile or visual disturbances. Assessment & Plan At this point in time lorazepam has been discontinued, as there are no current signs of alcohol withdrawal. Any further administration of medication would only contribute to his sedation. We will monitor. As patient improves cognitively, can discuss counseling options JAVIER JOSEPH MD Addiction Medicine 01/01/2023 at 11:51 AM --35 minutes were spent reviewing the patient's records, evaluating the patient, entering orders, coordinating care with the treatment team, and creating a progress note. Occupational Therapy Facility/Department: Occupational Therapy Initial Evaluation NAME: Krystina Markham : 1955 Date of Service: 01/01/2023 Discharge Recommendations: Home with Home health OT, Home with assist PRN Assessment REQUIRES OT FOLLOW-UP: Yes Performance deficits / Impairments: Decreased ADL status, Decreased ROM Assessment: Prior to admission, pt was independent in ADLs, functional transfers and mobility with no device; pt continues to be functionally independent in transfers and mobility with no device, however, requires SBA-min/mod A for ADLs. Pt is limited by LUE WB/ROM restrictions. Pt should benefit from skilled OT services in order to increase safety and independence in occupational participation. Prognosis: Good Decision Making: Medium Complexity History: Pt admitted with a fall resulting in head wound an dhyponatremia; pt s/p L humeral fx 12/26. PMH is listed above. Exam: [facility] Assistance / Modification: ind-min/mod A Activity Tolerance Activity Tolerance: Patient Tolerated treatment well Patient Diagnosis(es): The encounter diagnosis was Hyponatremia. has a past medical history of Alcohol consumption heavy (09/10/2015), Asthma, Atrial fibrillation (CMS/HCC) ([facility]), CHF (congestive heart failure) (CMS/HCC) ([facility]) (01/31/2016), COPD (chronic obstructive pulmonary disease) ([facility]) (09/10/2015), Cor, pulmonale, acute (CMS/HCC) ([facility]), Deep venous thrombosis ([facility]) (02/2016), Depression, blood clots, Obesity (09/10/2015), DELORES (obstructive sleep apnea), Pulmonary embolus (HCC), Raynaud phenomenon (09/10/2015), and Smoker (09/10/2015). has a past surgical history that includes Hernia repair; Bronchoscopy (02/25/2020); Nose surgery; Colonoscopy (10/27/2019); Finger amputation (Left); Abdominal surgery; CTA chest angiogram w and/or wo IV contrast (07/12/2022); and bronchoscopy (historical) (02/25/2020). Restrictions Restrictions/Precautions Restrictions/Precautions: Weight Bearing, General Precautions, ROM Restrictions, Fall Risk, Seizure (CIWA) Required Braces or Orthoses?: Yes Upper Extremity Weight Bearing Restrictions Left Upper Extremity Weight Bearing: Non Weight Bearing Required Braces or Orthoses Left Upper Extremity Brace/Splint: Sling Position Activity Restriction Other position/activity restrictions: Pt with Valgus impacted proximal humerus fx 12/26/22. 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 Subluxation of the humeral head 2/2 joint hemarthrosis. "Keep left arm in a sling for comfort and immobilization. Come out of the sling multiple times daily and move the elbow, wrist, and fingers to prevent stiffness." Vision/Hearing Vision: Within Functional Limits Hearing: Functional/adequate for paticipation in therapy Cognition/Orientation Overall Cognitive Status: WFL Overall Orientation Status: Within Functional Limits Subjective General Chart Reviewed: Yes Patient Assessed for Rehabilitation Services: Yes Family / Caregiver Present: No Subjective Subjective: Pt pleasant and cooperative. General Comments Comments: Per RN, ok for pt to participate in OT eval. Co-eval with PT d/t recent falls. Pain Assessment Pain Assessment: No/denies pain Social/Functional History Social/Functional History Lives With: (pt reports he will be staying with his ex) Type of Home: House Home Layout: One level Home Access: Stairs to enter with rails Entrance Stairs - Number of Steps: 3 Entrance Stairs - Rails: Both Bathroom Shower/Tub: Walk-in shower Bathroom Toilet: Standard Bathroom Equipment: Shower chair, Grab bars around toilet, Grab bars in shower ADL Assistance: Independent Homemaking Assistance: Independent Ambulation Assistance: Independent Transfer Assistance: Independent Objective Gross Assessment: Yes AROM: (RUE WFL, L elbow slight flex/ext deficits d/t swelling, wrist and fingers WFL) Strength: (LUE NWB, RUE WFL) Tone: Normal Sensation: Intact Observation/Palpation Posture: Fair Observation: Ecchymosis about the shoulder and arm. tele intact. Balance Sitting Balance: Independent Standing Balance: Independent Functional Mobility Functional - Mobility Device: No device Activity: Other Assist Level: Independent Functional Mobility Comments: Pt ambulated independently with a steady and reciprocal gait. No LOB noted. ADL Feeding: Independent Grooming: Stand by assistance UE Bathing: Minimal assistance, Moderate assistance LE Bathing: Stand by assistance UE Dressing: Minimal assistance, Moderate assistance (Pt educated on how to properly don sling and proper positioning. Pt required min/mod A overall to don sling.) LE Dressing: Stand by assistance (Pt educated on how to complete 1-handed dressing technique to don socks- pt completed with extended time and SBA.) Toileting: Stand by assistance Bed mobility Supine to Sit: Modified independent Sit to Supine: Modified independent Scooting: Modified independent Comment: Pt re-educated on WB/ROM restrictions prior to mobility to ensure safety and independence in occupational participation. Pt able to recall at end of session. Pt initially required mod A for sup to sit progressing to mod I on second trial while maintaining LUE NWB. Denied dizziness with changes in positioning. Transfers Sit to stand: Independent Stand to sit: Independent Transfer Comments: No device Plan Times per Week: 6 visits Current Treatment Recommendations: ROM, Positioning, Patient/Caregiver Education & Training, Self-Care / ADL, Home Management Training Plan Comment: POC and goals were made in collaboration with the pt. Safety Safety Devices in place: Yes Type of devices: All fall risk precautions in place, Call light within reach, Gait belt, Patient at risk for falls, Left in bed, Nurse notified, Bed alarm in place AM-PAC Score AM-PAC Inpatient Daily Activity Raw Score: 24 ADL Inpatient [facility] G-Code Modifier: CH Goals Encounter Problems Encounter Problems (Active) Dressing Upper Extremities Patient will complete upper body ADLs mod I. Start: 01/01/23 Expected End: 01/08/23 Dressings Lower Extremities Patient will complete lower body ADLs mod I. Start: 01/01/23 Expected End: 01/08/23 Mobility Patient will increase ROM of L elbow/wrist/fingers to be able to increase/maintain ROM. Start: 01/01/23 Expected End: 01/08/23 Toileting Patient will complete toileting tasks at standard toilet with modified independence. Start: 01/01/23 Expected End: 01/08/23 Education Education Given To: Patient Education Provided: OT Role, Plan of Care Education Method: Verbal Barriers to Learning: None Education Outcome: Verbalized understanding, Continued education needed Therapy Time Individual Co-treatment Time In 917 Time Out 0936 Minutes 18 Timed Code Treatment Minutes: 8 Minutes (1 ADL) [place] OT Physical Therapy Facility/Department: [address] Physical Therapy Initial Evaluation NAME: Krystina Markham : 1955 Date of Service: 01/01/2023 Discharge Recommendations: Home with assist PRN PT Equipment Recommendations Equipment Needed: No Assessment Requires PT Follow-Up: No Assessment: Pt is a 67 y.o. male admitted 12/29 s/p fall at home. Pt found to have head laceration, hyponatremia. Left shoulder x-ray showed a subacute mildly displaced angulated impacted humeral surgical neck fracture with slight inferior pseudo subluxation. Pt is now NWB LUE. Pt was previously independent with functional mobility without AD. Pt is currently mod I for bed mobility, independent for functional transfers, ambulation and stairs. Pt demos good stability throughout, no significant LOB or unsteadiness noted. No acute skilled PT needs identified. Pt denies concerns for homegoing. Recommend home with PRN assist. Will complete orders at this time, please re-consult if change in status. Performance Deficits/Impairments: Decreased ROM Activity Tolerance Comment: Pt demos good tolerance to activity Decision Making: Low Complexity History: Pt admitted 12/29 s/p fall at home. Pt found to have head laceration, hyponatremia. Left shoulder x-ray showed a subacute mildly displaced angulated impacted humeral surgical neck fracture with slight inferior pseudo subluxation. Pt is now NWB LUE. Exam: AM-PAC Clinical Presentation: Pt admitted 12/29 s/p fall at home. Pt found to have head laceration, hyponatremia. Left shoulder x-ray showed a subacute mildly displaced angulated impacted humeral surgical neck fracture with slight inferior pseudo subluxation. Pt is now NWB LUE. Pt has significant past medical history as indicated impacting pt's current clinical presentation. Pt is currently mod I for bed mobility, independent for functional transfers, ambulation, and stairs. No acute skilled PT needs identified. Recommend home with PRN assist. Barriers to Learning: None Barriers to Learning: None No Skilled PT: Independent with functional mobility Activity Tolerance Activity Tolerance: Patient Tolerated treatment well Patient Diagnosis(es): The encounter diagnosis was Hyponatremia. has a past medical history of Alcohol consumption heavy (09/10/2015), Asthma, Atrial fibrillation ([facility]/HCC) ([facility]), CHF (congestive heart failure) ([facility]/HCC) ([facility]) (01/31/2016), COPD (chronic obstructive pulmonary disease) ([facility]) (09/10/2015), Cor, pulmonale, acute ([facility]) ([facility]), Deep venous thrombosis ([facility]) (02/2016), Depression, blood clots, Obesity (09/10/2015), DELORES (obstructive sleep apnea), Pulmonary embolus ([facility]), Raynaud phenomenon (09/10/2015), and Smoker (09/10/2015). has a past surgical history that includes Hernia repair; Bronchoscopy (02/25/2020); Nose surgery; Colonoscopy (10/27/2019); Finger amputation (Left); Abdominal surgery; CTA chest angiogram w and/or wo IV contrast (07/12/2022); and bronchoscopy (historical) (02/25/2020). Restrictions Restrictions/Precautions Restrictions/Precautions: Weight Bearing, General Precautions, ROM Restrictions, Fall Risk, Seizure (CIWA) Required Braces or Orthoses?: Yes Upper Extremity Weight Bearing Restrictions Left Upper Extremity Weight Bearing: Non Weight Bearing Required Braces or Orthoses Left Upper Extremity Brace/Splint: Sling Position Activity Restriction Other position/activity restrictions: Pt with Valgus impacted proximal humerus fx 12/26/22. 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 Subluxation of the humeral head 2/2 joint hemarthrosis. "Keep left arm in a sling for comfort and immobilization. Come out of the sling multiple times daily and move the elbow, wrist, and fingers to prevent stiffness." Vision/Hearing Vision: Within Functional Limits Hearing: Functional/adequate for paticipation in therapy Cognition/Orientation Overall Cognitive Status: WFL Overall Orientation Status: Within Functional Limits Subjective General Chart Reviewed: Yes Patient Assessed for Rehabilitation Services: Yes Additional Pertinent Hx: Pt admitted 12/29 s/p fall at home. Pt found to have head laceration, hyponatremia. Left shoulder x-ray showed a subacute mildly displaced angulated impacted humeral surgical neck fracture with slight inferior pseudo subluxation. Pt is now NWB LUE. Family / Caregiver Present: No Follows Commands: Within Functional Limits General Comment Comments: Per RN yvette for therapy Subjective Subjective: Pt pleasant and agreeable to evaluation Social/Functional History Social/Functional History Lives With: (pt reports he will be staying with his ex) Type of Home: House Home Layout: One level Home Access: Stairs to enter with rails Entrance Stairs - Number of Steps: 3 Entrance Stairs - Rails: Both Bathroom Shower/Tub: Walk-in shower Bathroom Toilet: Standard Bathroom Equipment: Shower chair, Grab bars around toilet, Grab bars in shower ADL Assistance: Independent Homemaking Assistance: Independent Ambulation Assistance: Independent Transfer Assistance: Independent Objective Observation/Palpation Posture: Fair Observation: Ecchymosis about the shoulder and arm. tele intact. Gross Assessment Gross Assessment: Yes Strength: Within functional limits Gross Assessment: Yes Strength: Within functional limits Bed mobility Supine to Sit: Modified independent Sit to Supine: Modified independent Scooting: Modified independent Comment: Per OT, reviewed WB and ROM restrictions prior to mobility (PT collecting vitals cart). Sling donned EOB. Pt able to recall at end of session. Pt completes bed mobility at mod I with HOB elevated. No significant difficulty noted, pt maintains NWB LUE throughout. Transfers Sit to Stand: Independent Stand to sit: Independent Comment: Pt completes x1 sit<->stand transfer from EOB to no AD. Pt completes independently. No difficulty noted. Pt maintains NWB LUE. Ambulation Ambulation: Yes Ambulation 1 Surface 1: Level tile Device 1: No device Assistance 1: Independent Quality of Gait 1: No gait deviations, reciprocal stepping, B foot clearance, equal step length Quality of Gait Comment 1: Pt ambulates ~200 feet with no AD. Pt demos good stability, no LOB or unsteadiness noted. Pt demos step through gait pattern, appropriate step length and gait speed. Distance (ft) 1: ~200 feet Stairs Rails 1: Right (when ascending and descending) Device 1: No device Additional Factors: Reciprocal going up, Reciprocal going down Assistance 1: Independent Number of Steps 1: ~10 steps Comment 1: Pt ascends/descends ~10 steps with unilateral R HR. Pt completes independently. No LOB or unsteadiness noted. Balance Posture: Good Sitting - Static: Good Sitting - Dynamic: Good Standing - Static: Good Standing - Dynamic: Good Plan # of visits: PT eval only; no acute skilled PT needs identified Plan Comment: Plan of care established in collaboration with pt Safety Safety Devices Safety Devices in Place: Yes Type of Devices: All fall risk precautions in place, Gait belt, Left in bed, Nurse notified, No alarms engaged upon entry into room AM-PAC Score AM-PAC Inpatient Mobility Raw Score: 24 Mobility Inpatient CMS G-Code Modifier: CH Goals No acute skilled PT needs identified. Education Education Given To: Patient Education Provided: Goals, Energy Conservation, PT Role, General Safety, Plan of Care, Discharge recommendations, Precautions, Injury Prevention, Weight-bearing Education Education Method: Verbal Barriers to Learning: None Education Outcome: Verbalized understanding, Demonstrated understanding Therapy Time Individual Co-treatment Time In 0918 (co-eval with OT) Time Out 0936 Minutes 18 Nancy Willis PT Attending Supervising Physician's Attestation Statement I completed an independent history and exam. I discussed the findings and plans with the resident physician and agree as documented in their note. Subjective Pt admitted for hyponatremia, fall. Found on floor by with head laceration. Found to have Na+ of 115 and a fracture of left humerus. This am - pt no doses of ativan for CIWA Stephanie po. Denies any complaints. Minimal pain. Review of Systems Constitutional: Positive for activity change. Negative for appetite change, diaphoresis and fever. HENT: Negative for facial swelling and trouble swallowing. Respiratory: Positive for shortness of breath and wheezing. Cardiovascular: Negative for chest pain and leg swelling. Gastrointestinal: Negative for abdominal pain and nausea. Genitourinary: Negative for difficulty urinating. Musculoskeletal: Positive for arthralgias. Neurological: Negative for dizziness. Psychiatric/Behavioral: Negative for agitation and behavioral problems. Objective Physical Exam Constitutional: General: He is not in acute distress. Appearance: He is normal weight. Comments: disheveled Cardiovascular: Rate and Rhythm: Normal rate and regular rhythm. Pulses: Normal pulses. Heart sounds: Normal heart sounds. No murmur heard. Pulmonary: Effort: Pulmonary effort is normal. Breath sounds: Wheezing present. No rhonchi. Abdominal: General: Bowel sounds are normal. Tenderness: There is no abdominal tenderness. Musculoskeletal: Cervical back: No rigidity. Right lower leg: No edema. Left lower leg: No edema. Skin: General: Skin is warm and dry. Findings: Bruising present. Neurological: Mental Status: He is alert. Psychiatric: Mood and Affect: Mood normal. Behavior: Behavior normal. Last Recorded Vitals Blood pressure 133/82, pulse 75, temperature 36.2 C (97.1 F), temperature source Temporal, resp. rate 16, height 5' 9" (1.753 m), weight 190 lb 8 oz (86.4 kg), SpO2 96 %. Lab Results Component Value Date WBC 12.0 (H) 01/01/2023 HGB 9.1 (L) 01/01/2023 HCT 26.2 (L) 01/01/2023 MCV 97.6 01/01/2023 PLT 186 01/01/2023 Lab Results Component Value Date GLUCOSE 149 (H) 01/01/2023 CALCIUM 8.2 (L) 01/01/2023 NA 125 (L) 01/01/2023 K 4.4 01/01/2023 CO2 23 01/01/2023 CL 98 01/01/2023 BUN 13 01/01/2023 CREATININE 0.58 (L) 01/01/2023 CT head- NAP === 12/29/22 === CT CERVICAL SPINE WO IV CONTRAST - Impression - No CT evidence of an acute intracranial process. Chronic changes as discussed. Mild left scalp swelling, likely due to laceration. No underlying calvarial fracture. No evidence of acute cervical spine fracture within constraints of motion. No traumatic malalignment. Degenerative changes as discussed. Anatomic Variant: None. Assume 7 cervical vertebrae with counting from the craniocervical junction. Encounter Date: 04/29/23 ECG 12 lead Result Value Heart Rate 77 QRSD Interval 188 QT Interval 500 QTC Interval 567 P [place] QRS [place] -72 T Wave [place] 138 VA Interval Impression ATRIAL FIBRILLATION MULTIFORM VENTRICULAR PREMATURE COMPLEXES NONSPECIFIC IVCD WITH LAD LVH WITH SECONDARY REPOLARIZATION ABNORMALITY Compared to ECG 12/30/2022 19:37:54 Ventricular premature complex(es) now present Intraventricular conduction delay now present Left ventricular hypertrophy now present Early repolarization now present Assessment/Plan Principal Problem: Hyponatremia Active Problems: Presence of implantable cardioverter-defibrillator (ICD) Alcohol abuse Closed fracture of neck of left humerus with routine healing Chronic hyponatremia Essential hypertension COPD (chronic obstructive pulmonary disease) ([facility]) HFrEF (heart failure with reduced ejection fraction) ([facility]) ([facility]) Severe hyponatremia - 115>125 Due to etoh abuse IVF Monitor Encourage po but fluid restriction ETOH abuse Encourage cessation Ciwa Humeral fx- ortho consulted Sling Po pain meds COPD- active wheezing Cont aerosols Add prednisone if no improvement A-fib - rate control, on DOAC DISPO - resume home meds, follow sodiums back to baseline. Antic dc home in later today. Images from the original note were not included. Medical Teaching Service Progress Note Patient: Krystina Markham : 1955 Acct: [id number] PCP: JAMIA SIERRA MD Admitting Physician: Alice Smith MD Admission Date: 12/29/2022 Admitting Diagnosis: Hyponatremia [E87.1] Unit/Bed: B4-454/B4-454 B Hospital Day: 3 Code Status: Full Code Subjective: Overnight events: CIWA 0 This morning patient sitting at edge of bed, receiving a breathing treatment. Reports that has trouble breathing sometimes but breathing treatment helps. Denies increased sputum production, worsening cough, chest pain, denies home o2 requirements. No acute complaints. Still have L shoulder pain, tolerating PO and moving bowels. Objective: Vitals: 12/31/22 1607 12/31/22 1943 12/31/22 2322 01/01/23 0312 BP: 101/61 97/65 130/73 BP Location: Right arm Right arm Right arm Patient Position: Lying Lying Sitting Pulse: 76 84 75 94 Resp: 16 16 16 16 Temp: 37.1 C (98.7 F) 37.1 C (98.8 F) 37.2 C (98.9 F) TempSrc: Temporal Temporal Temporal SpO2: 94% 92% 90% 95% Weight: Height: Temp (24hrs), Av.1 C (98.8 F), Min:36.7 C (98.1 F), Max:37.3 C (99.2 F) Intake/Output Summary (Last 24 hours) at 01/01/2023 0719 Last data filed at 12/31/2022 1151 Gross per 24 hour Intake 540 ml Output 400 ml Net 140 ml Physical Exam Vitals and nursing note reviewed. Constitutional: General: He is not in acute distress. Comments: disheveled HENT: Head: Comments: Dried blood noted on L side of scalp Mouth/Throat: Mouth: Mucous membranes are moist. Pharynx: Oropharynx is clear. Eyes: Extraocular Movements: Extraocular movements intact. Conjunctiva/sclera: Conjunctivae normal. Pupils: Pupils are equal, round, and reactive to light. Cardiovascular: Rate and Rhythm: Normal rate and regular rhythm. Pulses: Normal pulses. Heart sounds: Normal heart sounds. No murmur heard. Pulmonary: Effort: Pulmonary effort is normal. No respiratory distress. Breath sounds: Wheezing present. Abdominal: General: Bowel sounds are normal. Musculoskeletal: Right upper arm: Normal. Cervical back: Normal range of motion and neck supple. Right lower leg: No edema. Left lower leg: No edema. Comments: No longer in sling this morning, ecchymoses over the axillary region healing. Sensation intact grossly. Strength 3/5. Skin: General: Skin is warm and dry. Capillary Refill: Capillary refill takes less than 2 seconds. Neurological: General: No focal deficit present. Mental Status: He is alert. [place]: No Drains: No Central Line/Port: No Intubated: No Diet: Adult diet Regular Medications: acetaminophen, 1,000 mg, Oral, q8h Or Acetaminophen, 1,000 mg, Per G Tube, q8h apixaban, 5 mg, Oral, BID folic acid, 1 mg, Oral, Daily ipratropium-albuterol, 3 mL, Nebulization, BID metoprolol succinate XL, 100 mg, Oral, BID montelukast, 10 mg, Oral, qPM nicotine, 1 patch, TransDERmal, Daily Followed by [START ON 02/09/2023] nicotine, 1 patch, TransDERmal, Daily Followed by [START ON 02/23/2023] nicotine, 1 patch, TransDERmal, Daily pantoprazole, 40 mg, Oral, q AM Potassium Bicarb-Citric Acid, 20 mEq, Oral, Daily rosuvastatin, 40 mg, Oral, Nightly sacubitril-valsartan, 1 tablet, Oral, BID senna-docusate sodium, 1 tablet, Oral, BID sertraline, 100 mg, Oral, q AM spironolactone, 25 mg, Oral, Nightly therapeutic multivitamin-minerals, 1 tablet, Oral, Daily Thiamine Mononitrate, 100 mg, Oral, Daily Continuous Infusions: PRN Meds: PRN medications: albuterol, ipratropium-albuterol, LORazepam OR LORazepam OR LORazepam OR LORazepam OR LORazepam OR LORazepam OR LORazepam OR LORazepam, oxyCODONE, polyethylene glycol (PEG) 3350, promethazine OR promethazine OR promethazine Labs: CBC: Results from last 7 days Lab Units 01/01/23 0255 12/31/22 0300 12/30/22 2224 WBC AUTO 10*3/uL 12.0* 14.5* 13.7* HEMOGLOBIN g/dL 9.1* 8.9* 9.5* HEMATOCRIT % 26.2* 26.4* 27.6* PLATELETS AUTO 10*3/uL 186 181 172 NEUTROS PCT AUTO % 78.7 85.8* 86.8* LYMPHS PCT AUTO % 8.6* 4.3* 5.0* MONOS PCT AUTO % 11.1* 9.2 7.7 EOS PCT AUTO % 1.3 0.4* 0.3* BMP: Results from last 7 days Lab Units 01/01/23 0630 01/01/23 0255 12/31/22 2250 SODIUM mmol/L 125* 125* 125* POTASSIUM mmol/L 4.4 4.1 4.2 CHLORIDE mmol/L 98 98 98 CO2 mmol/L 23 25 27 BUN mg/dL 13 13 13 CREATININE mg/dL 0.58* 0.66 0.66 GLUCOSE mg/dL 149* 126* 117* CALCIUM mg/dL 8.2* 8.1* 8.1* LIVER PROFILE: Results from last 7 days Lab Units 01/01/23 0255 12/31/22 0300 12/30/22 0609 12/30/22 0233 12/29/22 1411 ALK PHOS U/L 81 67 62 63 112 BILIRUBIN TOTAL mg/dL 0.7 0.7 0.8 0.9 1.3 BILIRUBIN DIRECT mg/dL -- -- -- 0.0 0.0 PROTEIN TOTAL g/dL 5.2* 5.2* 5.6* 5.5* 7.0 ALT U/L 81* 20 23 23 30 AST U/L 38 40 49* 54* 72* PT/INR: Results from last 7 days Lab Units 01/01/23 0255 12/31/22 0300 12/30/22 0233 APTT s 36.9* 37.6* 36.0* INR 1.1 1.2* 1.2* CARDIAC ENZYMES: Results from last 7 days Lab Units 12/30/22 0233 12/29/22 1411 CK TOTAL U/L 223* 448* TROPONIN I ng/mL -- 0.019 Procalcitonin: No results found for: PROCAL Glucose: ASSESSMENT/PLAN: Patient Active Problem List Diagnosis Date Noted Closed fracture of neck of left humerus with routine healing 12/31/2022 Hyponatremia 12/29/2022 COPD exacerbation (HCC) 09/13/2022 Alcohol abuse 07/28/2022 Presence of implantable cardioverter-defibrillator (ICD) 07/19/2022 Chest pain, unspecified type 07/17/2022 Hypochloremia 07/17/2022 Tobacco abuse 07/17/2022 HFrEF (heart failure with reduced ejection fraction) (CMS/HCC) ([facility]) 07/17/2022 Paroxysmal atrial fibrillation ([facility]/HCC) ([facility]) 08/25/2021 History of rib fracture 08/25/2021 Chronic hyponatremia 08/25/2021 Essential hypertension 08/25/2021 COPD (chronic obstructive pulmonary disease) (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 History of adenomatous polyp of colon 11/18/2019 Diverticulosis of large intestine without diverticulitis 10/27/2019 Compression fracture of thoracic vertebra with routine healing 10/07/2019 Osteoporosis 10/07/2019 Venous stasis dermatitis of left lower extremity 07/17/2017 Current moderate episode of major depressive disorder without prior episode (HCC) 04/10/2017 Cor pulmonale, acute (CMS/HCC) (HCC) 02/01/2016 Raynaud phenomenon 09/10/2015 Severe hyponatremia with hypochloremia - improving Chronic hyponatremia 2/2 likely beer potomania - baseline History of alcohol abuse Hyponatremia currently likely multifactorial with lack of oral intake and history of beer potomania. Urine studies: [place] <5, Urine osm 361 WNL -on telemetry -CIWA protocol with Ativan 1mg PRN if CIWA >8 -Folic acid -Multivitamin -Thiamine replacement -Consults recs -Addiction medicine -PT/OT -CM/SW -Daily labs -CBC with differential -CMP -Pain management -Tylenol 1000 mg as needed - Roxicodone 5mg q6hrs PRN Recent left Humoral fracture History of osteoporosis Patient had a humeral fracture at a previous ED presentation on 12/26. According to the note patient's injury occurred approximately around 12/23. Patient was to follow-up with orthopedics but never did. New imaging shows worsening displacement. Physical exam shows motor weakness without gross loss of sensation. -Pain management -as above -Orthopedics rec appreciated - no acute surgical intervention at this time, continue with conservative treatment - activity as tolerated - Sling - come out of sling for ROM to prevent stiffness - follow up outpt -PT/OT Normocystic anemia - hb drop to 8.9 from 9.5 now stable at 9.1, low concern for bleeding, possible due to ecchymosis - DC FOBT HFrEF/cor pulmonale with ICD Patient has an ejection fraction of 25% per echo in July 2022. Severe global hypokinesis present. Mild to moderate right-sided systolic dysfunction. ICD check last performed on 11/28. -Continue home medications -Rosuvastatin 40 mg nightly -Entresto 49-51 mg twice daily -Spironolactone 25 mg nightly Paroxysmal A-fib -Continue home medications -Eliquis 5 mg twice daily -Metoprolol succinate 100 mg twice daily COPD Tobacco -Maintain oxygen between 88 and 92% -Albuterol 2 puffs every 6 hours as needed -DuoNebs every 4 hours while awake -Singulair 10 mg p.o. daily -Nicotine patch Obstructive sleep apnea/HTN -AutoPap Depression -resume Zoloft 100 mg daily Prolonged Qtc - monitor - avoid QTC prolonging agents FEN/GI/DVT IVF: None Electrolytes: Monitor and replace per protocols Diet: Adult diet Regular GI PPX: Yes DVT Prophylaxis: No prophylaxis/Already on anticoagulation: Eliquis Telemetry: Currently on Telemetry / Reason: Concern for acute alcohol withdrawal in a patient with an ejection fraction of 25%. DISPOSITION: Stable for discharge Scalp lesion, healing well with scab, no signs of infection. Suture site cleaned with alcohol wipe. Suture x1 was removed and dermabond applied prior to discharge. Attending Supervising Physician's Attestation Statement I completed an independent history and exam. I discussed the findings and plans with the resident physician and agree as documented in their note. Subjective Pt admitted for hyponatremia, fall. Found on floor by with head laceration. Found to have Na+ of 115 and a fracture of left humerus. This am - pt required one dose of ativan for CIWA of 9. Stephanie po. Denies any complaints. Minimal pain. Review of Systems Constitutional: Positive for activity change. Negative for appetite change, diaphoresis and fever. HENT: Negative for facial swelling and trouble swallowing. Respiratory: Positive for shortness of breath and wheezing. Cardiovascular: Negative for chest pain and leg swelling. Gastrointestinal: Negative for abdominal pain and nausea. Genitourinary: Negative for difficulty urinating. Musculoskeletal: Positive for arthralgias. Neurological: Negative for dizziness. Psychiatric/Behavioral: Negative for agitation and behavioral problems. Objective Physical Exam Constitutional: General: He is not in acute distress. Appearance: He is normal weight. Comments: disheveled Cardiovascular: Rate and Rhythm: Normal rate and regular rhythm. Pulses: Normal pulses. Heart sounds: Normal heart sounds. No murmur heard. Pulmonary: Effort: Pulmonary effort is normal. Breath sounds: Wheezing present. No rhonchi. Abdominal: General: Bowel sounds are normal. Tenderness: There is no abdominal tenderness. Musculoskeletal: Cervical back: No rigidity. Right lower leg: No edema. Left lower leg: No edema. Skin: General: Skin is warm and dry. Findings: Bruising present. Neurological: Mental Status: He is alert. Psychiatric: Mood and Affect: Mood normal. Behavior: Behavior normal. Last Recorded Vitals Blood pressure 121/63, pulse 76, temperature 37.3 C (99.2 F), temperature source Temporal, resp. rate 16, height 5' 9" (1.753 m), weight 190 lb 8 oz (86.4 kg), SpO2 96 %. Lab Results Component Value Date WBC 14.5 (H) 12/31/2022 HGB 8.9 (L) 12/31/2022 HCT 26.4 (L) 12/31/2022 MCV 97.5 12/31/2022 PLT 181 12/31/2022 Lab Results Component Value Date GLUCOSE 107 (H) 12/31/2022 CALCIUM 7.4 (L) 12/31/2022 NA 125 (L) 12/31/2022 K 3.2 (L) 12/31/2022 CO2 26 12/31/2022 CL 97 (L) 12/31/2022 BUN 10 12/31/2022 CREATININE 0.49 (L) 12/31/2022 CT head- NAP === 12/29/22 === CT CERVICAL SPINE WO IV CONTRAST - Impression - No CT evidence of an acute intracranial process. Chronic changes as discussed. Mild left scalp swelling, likely due to laceration. No underlying calvarial fracture. No evidence of acute cervical spine fracture within constraints of motion. No traumatic malalignment. Degenerative changes as discussed. Anatomic Variant: None. Assume 7 cervical vertebrae with counting from the craniocervical junction. Encounter Date: 12/29/22 ECG 12 lead Result Value Heart Rate 77 QRSD Interval 188 QT Interval 500 QTC Interval 567 P [place] QRS [place] -72 T Wave [place] 138 VA Interval Impression ATRIAL FIBRILLATION MULTIFORM VENTRICULAR PREMATURE COMPLEXES NONSPECIFIC IVCD WITH LAD LVH WITH SECONDARY REPOLARIZATION ABNORMALITY Compared to ECG 12/30/2022 19:37:54 Ventricular premature complex(es) now present Intraventricular conduction delay now present Left ventricular hypertrophy now present Early repolarization now present Assessment/Plan Principal Problem: Hyponatremia Active Problems: Presence of implantable cardioverter-defibrillator (ICD) Alcohol abuse Closed fracture of neck of left humerus with routine healing Chronic hyponatremia Essential hypertension COPD (chronic obstructive pulmonary disease) (HCC) HFrEF (heart failure with reduced ejection fraction) ([facility]/HCC) (HCC) Severe hyponatremia - 115>125 Due to etoh abuse IVF Monitor ETOH abuse Encourage cessation Ciwa Humeral fx- ortho consulted Sling Po pain meds COPD- active wheezing Cont aerosols Add prednisone if no improvement A-fib - rate control, on DOAC DISPO - resume home meds, follow sodiums back to baseline. Antic dc home in 1-2 days. [facility] Respiratory Care Department Progress Note As part of the Respiratory Assessment Program (RAP), the following Respiratory Therapist evaluation has been completed, including a chart review and clinical/physical assessment. Respiratory Therapist RAP Evaluation Guideline Points 0 1 2 3 4 Points Strongly Consider History Factor No Pulmonary conditions Stable Pulmonary condition(s) Surgery or Intervention that may impact Pulmonary system (at risk) Surgery or Intervention that is impacting Pulmonary system Active Exacerbation of Pulmonary Condition 1 Respiratory Pattern Regular, RR= 12-18 NARAYANAN or Increased RR= 19-24 Irregular, or RR= 25-30 SOB, talk in short sentences, or RR= 31-35 Severe SOB, accessory muscle use, one word answers, or RR>35 0 Aerosol Med(s), High Flow O2 Breath Sounds Clear Diminished in 1 lobe Diminished in ? 2 lobes Adventitious breath sounds Coarse crackles, Wheezes, or Diminished in >2 lobes 2 Aerosol Med(s), Bronchial Hygiene, Hyperinflation Cough & Sputum Strong cough, no secretion retention or production Weak cough, no secretion retention or production Weak cough, w/ production (less often than Q2hr), or secretion retention No cough, w/ secretion retention or production (less often than Q2hr) Significant secretion production (more often than Q2hr) or mucus plug 0 Aerosol Med(s), Bronchial Hygiene, Hyperinflation Level of Activity Ambulatory Ambulatory with Assist Up in chair or edge of bed (dangle) Non-ambulatory, bedridden with active ROM Completely paralyzed or without active ROM 1 Triage 5 0-2 Triage 4 3-5 Triage 3 6-10 Triage 2 11-14 Triage 1 ?15 Tota 4l Triage Score = 4 TRIAGE SCORING - SUGGESTED FREQUENCIES Aerosol Therapy Bronchial Hygiene Hyperinflation Triage Score Q4h & PRN 1 Q4hWA (QID) & PRN 2 TID & PRN 3 BID & PRN 4 PRN 5 Therapy(s) Indicated Yes/No Aerosol Medication y Hyperinflation 0 Bronchial Hygiene 0 High Flow Oxygen 0 Flow Rates PEF (L/Sec) 0 IVC 00 FVC 0 FEV1 0 FEV1/FVC 0 Patient instructed and returned demonstration on use of MDI (with spacer, as appropriate) None RT to enter/modify frequency of treatment order in EMR/EHR to match this RAP evaluation. Based on this RAP evaluation the following therapy is being initiated: DUONEB At the following frequency: BID & PRN Comments: Thank you for involving Respiratory in the care of this patient, Occupational Therapy Facility/Department: Occupational Therapy Attempt NAME: Krystina Markham : 1955 Date of Service: 12/31/2022 OT orders received. Chart reviewed. Per NGHIA crawford for therapy. Therapist presented to room and introduced self/role. Pt supine in bed without sling. RN reports sling had to be thrown away and a new one has been ordered. Unsafe to proceed with OOB mobility without sling. Will continue to follow and re-attempt as pt appropriate and schedule permits. Melodie Bay OT Physical Therapy Facility/Department: [address] Physical Therapy Initial Evaluation NAME: Krystina Markham : 1955 Date of Service: 12/31/2022 PT orders received. Chart reviewed. Per NGHIA crawford for therapy. Therapist presented to room and introduced self/role. Pt supine in bed without sling. RN reports sling had to be thrown away and a new one has been ordered. Unsafe to proceed with OOB mobility without sling. Will continue to follow and re-attempt as pt appropriate and schedule permits. PT/OT returned to room at 1304, sling not present. Discussed with RN, requests therapy discuss with secretary office clerk. Froid to call central services to obtain new sling. Will re-attempt once sling has been delivered. Nancy Willis PT Nutrition rescreen completed. Pt referred to RD for poor oral intake. Images from the original note were not included. Medical Teaching Service Progress Note Patient: Krystina Markham : 1955 Acct: [id number] PCP: JAMIA SIERRA MD Admitting Physician: Alice Smith MD Admission Date: 12/29/2022 Admitting Diagnosis: Hyponatremia [E87.1] Unit/Bed: [facility] B Hospital Day: 2 Code Status: Full Code Subjective: Overnight events: CIWA 9 at 0332 this AM, given ativan. Following CIWA 1 This morning patient was awake and laying in bed. Denies SOB, chest pain, n/v. No acute complaints. Objective: Vitals: 12/31/22 0257 12/31/22 0300 12/31/22 0302 12/31/22 0655 BP: 120/70 118/70 BP Location: Patient Position: Lying Pulse: 72 75 Resp: 18 18 Temp: 36.4 C (97.6 F) 36.2 C (97.1 F) TempSrc: Oral Temporal SpO2: 95% 92% Weight: Height: Temp (24hrs), Av.6 C (97.9 F), Min:36.2 C (97.1 F), Max:36.9 C (98.5 F) Intake/Output Summary (Last 24 hours) at 12/31/2022 0711 Last data filed at 12/31/2022 0100 Gross per 24 hour Intake 1650 ml Output 1500 ml Net 150 ml Physical Exam Vitals and nursing note reviewed. Constitutional: General: He is not in acute distress. Comments: disheveled HENT: Head: Comments: Dried blood noted on L side of scalp Mouth/Throat: Mouth: Mucous membranes are moist. Pharynx: Oropharynx is clear. Eyes: Extraocular Movements: Extraocular movements intact. Conjunctiva/sclera: Conjunctivae normal. Pupils: Pupils are equal, round, and reactive to light. Cardiovascular: Rate and Rhythm: Normal rate and regular rhythm. Pulses: Normal pulses. Heart sounds: Normal heart sounds. No murmur heard. Pulmonary: Effort: Pulmonary effort is normal. No respiratory distress. Breath sounds: Wheezing present. Abdominal: General: Bowel sounds are normal. Musculoskeletal: Right upper arm: Normal. Cervical back: Normal range of motion and neck supple. Right lower leg: No edema. Left lower leg: No edema. Comments: Patient's left arm is in a sling with ecchymoses over the axillary region. Sensation intact grossly. Strength 3/5. Skin: General: Skin is warm and dry. Capillary Refill: Capillary refill takes less than 2 seconds. Neurological: General: No focal deficit present. Mental Status: He is alert. Pol[place]: No Drains: No Central Line/Port: No Intubated: No Diet: Adult diet Regular Medications: acetaminophen, 1,000 mg, Oral, q8h Or Acetaminophen, 1,000 mg, Per G Tube, q8h apixaban, 5 mg, Oral, BID folic acid, 1 mg, Oral, Daily ipratropium-albuterol, 3 mL, Nebulization, Q4H while awake metoprolol succinate XL, 100 mg, Oral, BID montelukast, 10 mg, Oral, qPM nicotine, 1 patch, TransDERmal, Daily Followed by [START ON 02/09/2023] nicotine, 1 patch, TransDERmal, Daily Followed by [START ON 02/23/2023] nicotine, 1 patch, TransDERmal, Daily pantoprazole, 40 mg, Oral, q AM Potassium Bicarb-Citric Acid, 20 mEq, Oral, Daily potassium chloride, 10 mEq, IntraVENous, q1h rosuvastatin, 40 mg, Oral, Nightly sacubitril-valsartan, 1 tablet, Oral, BID [Held by provider] sertraline, 100 mg, Oral, q AM spironolactone, 25 mg, Oral, Nightly therapeutic multivitamin-minerals, 1 tablet, Oral, Daily Thiamine Mononitrate, 100 mg, Oral, Daily Continuous Infusions: sodium chloride, 100 mL/hr, Last Rate: 100 mL/hr (12/31/22 0710) PRN Meds: PRN medications: albuterol, LORazepam OR LORazepam OR LORazepam OR LORazepam OR LORazepam OR LORazepam OR LORazepam OR LORazepam, morphine, ondansetron ODT OR ondansetron, polyethylene glycol (PEG) 3350 Labs: CBC: Results from last 7 days Lab Units 12/31/22 03012/30/22 2224 12/30/22 0233 WBC AUTO 10*3/uL 14.5* 13.7* 12.7* HEMOGLOBIN g/dL 8.9* 9.5* 10.5* HEMATOCRIT % 26.4* 27.6* 29.9* PLATELETS AUTO 10*3/uL 181 172 168 NEUTROS PCT AUTO % 85.8* 86.8* 83.5* LYMPHS PCT AUTO % 4.3* 5.0* 5.9* MONOS PCT AUTO % 9.2 7.7 10.0 EOS PCT AUTO % 0.4* 0.3* 0.2* BMP: Results from last 7 days Lab Units 12/31/2229912/30/22200512/30/22 1640 SODIUM mmol/L 125* 122* 122* POTASSIUM mmol/L 3.2* 3.2* 3.4* CHLORIDE mmol/L 97* 92* 94* CO2 mmol/L 26 29 30 BUN mg/dL 10 10 11 CREATININE mg/dL 0.49* 0.54* 0.57* GLUCOSE mg/dL 107* 200* 122* CALCIUM mg/dL 7.4* 8.1* 8.0* LIVER PROFILE: Results from last 7 days Lab Units 12/31/22 03012/30/22 0609 12/30/22 0233 12/29/22 1411 ALK PHOS U/L 67 62 63 112 BILIRUBIN TOTAL mg/dL 0.7 0.8 0.9 1.3 BILIRUBIN DIRECT mg/dL -- -- 0.0 0.0 PROTEIN TOTAL g/dL 5.2* 5.6* 5.5* 7.0 ALT U/L 30 AST U/L 40 49* 54* 72* PT/INR: Results from last 7 days Lab Units 12/31/22 0300 12/30/22 023 APTT s 37.6* 36.0* INR 1.2* 1.2* CARDIAC ENZYMES: Results from last 7 days Lab Units 12/30/22 0233 12/29/22 1411 CK TOTAL U/L 223* 448* TROPONIN I ng/mL -- 0.019 Procalcitonin: No results found for: PROCAL Glucose: ASSESSMENT/PLAN: Patient Active Problem List Diagnosis Date Noted Hyponatremia 12/29/2022 COPD exacerbation ([facility]) 09/13/2022 Alcohol abuse 07/28/2022 Presence of implantable cardioverter-defibrillator (ICD) 07/19/2022 Chest pain, unspecified type 07/17/2022 Hypochloremia 07/17/2022 Tobacco abuse 07/17/2022 HFrEF (heart failure with reduced ejection fraction) ([facility]) ([facility]) 07/17/2022 Paroxysmal atrial fibrillation ([facility]) ([facility]) 08/25/2021 History of rib fracture 08/25/2021 Chronic hyponatremia 08/25/2021 Essential hypertension 08/25/2021 COPD (chronic obstructive pulmonary disease) (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) 04/10/2017 Cor pulmonale, acute ([facility]/HCC) ([facility]) 02/01/2016 Raynaud phenomenon 09/10/2015 Severe hyponatremia with hypochloremia - improving Chronic hyponatremia 2/2 likely beer potomania - baseline 127-128 History of alcohol abuse Hyponatremia currently likely multifactorial with lack of oral intake and history of beer potomania. Urine studies: [place] <5, Urine osm 361 WNL -on telemetry - NS 100ml/hr - BMP q6hrs -CIWA protocol with Ativan PRN if CIWA >8 -Folic acid -Multivitamin -Thiamine replacement -Consults recs -Addiction medicine - will assess today -PT/OT -CM/SW -Daily labs -CBC with differential -CMP -Pain management -Tylenol 1000 mg as needed - Roxicodone 5mg q6hrs PRN Recent left Humoral fracture History of osteoporosis Patient had a humeral fracture at a previous ED presentation on 12/26. According to the note patient's injury occurred approximately around 12/23. Patient was to follow-up with orthopedics but never did. New imaging shows worsening displacement. Physical exam shows motor weakness without gross loss of sensation. -Pain management -as above -Orthopedics rec appreciated - no acute surgical intervention at this time, continue with conservative treatment - activity as tolerated - Sling - come out of sling for ROM to prevent stiffness -PT/OT Normocystic anemia - hb drop to 8.9 from 9.5 - FOBT pending HFrEF/cor pulmonale with ICD Patient has an ejection fraction of 25% per echo in July 2022. Severe global hypokinesis present. Mild to moderate right-sided systolic dysfunction. ICD check last performed on 11/28. -Continue home medications -Rosuvastatin 40 mg nightly -Entresto 49-51 mg twice daily -Spironolactone 25 mg nightly Paroxysmal A-fib -Continue home medications -Eliquis 5 mg twice daily -Metoprolol succinate 100 mg twice daily COPD Tobacco -Maintain oxygen between 88 and 92% -Albuterol 2 puffs every 6 hours as needed -DuoNebs every 4 hours while awake -Singulair 10 mg p.o. daily -Nicotine patch - monitor sx of COPDe, consider escalating tx if needed Obstructive sleep apnea/HTN -AutoPap Depression -resume Zoloft 100 mg daily Prolonged Qtc - monitor - avoid QTC prolonging agents FEN/GI/DVT IVF: None Electrolytes: Monitor and replace per protocols Diet: Adult diet Regular GI PPX: Yes DVT Prophylaxis: No prophylaxis/Already on anticoagulation: Eliquis Telemetry: Currently on Telemetry / Reason: Concern for acute alcohol withdrawal in a patient with an ejection fraction of 25%. DISPOSITION: monitor for ETOH withdrawal , CIWA, correct sodium . Occupational Therapy Facility/Department: [facility] ICU Occupational Therapy Initial Evaluation NAME: Krystina Markham : 1955 Date of Service: 12/30/2022 OT oreders received and chart reviewed. Pt currently with sodium level of 119, contraindicating therapy services. Will continue to follow and re-attempt as able. Wanda Reed OT Images from the original note were not included. Medical Teaching Service Transfer Note Patient: Krystina Markham : 1955 Acct: [id number] PCP: JAMIA SIERRA MD Admitting Physician: Alice Smith MD Admission Date: 12/29/2022 Admitting Diagnosis: Hyponatremia [E87.1] Unit/Bed: 222-04/222-04 A Hospital Day: 1 Code Status: Full Code Subjective: Overnight events: Patient transferred from ICU service to [facility] Patient 67-year-old male with a known history of alcohol abuse and chronic hyponatremia with a baseline of approximately 127-128. He was brought in on 12/29 after falling on 12/28. Patient had a laceration on his head that was bleeding on and off for the day. In the ED imaging showed no cranial fracture or intracranial bleeding. Patient did have a humeral fracture of the week before and was to follow-up with orthopedic surgery but never did. Imaging at presentation showed worsening displacement. Patient had a hyponatremia of 115 and was admitted to the ICU. Patient had known acute neurological symptoms and addiction medicine was consulted. Patient started on Ativan per CIWA protocol. Patient was n.p.o. and given gentle IV hydration. Patient has a history of HFrEF with an ejection fraction of 25% on echo in July 2022. This morning patient's sodium of 121. This morning patient sleeping in bed. Easily awoken. Denies any pain, shortness of breath, chest pain or any other issues. Oriented to person place but not time. Stated that the year was 2001. Objective: Vitals: 12/30/22 0800 12/30/22 0847 12/30/22 0900 12/30/22 1000 BP: 94/55 121/77 BP Location: Right arm Patient Position: Lying Pulse: 65 83 80 81 Resp: 15 19 20 21 Temp: 36.9 C (98.4 F) TempSrc: Oral SpO2: 91% 96% 100% 91% Weight: Height: Temp (24hrs), Av.8 C (98.2 F), Min:36.3 C (97.3 F), Max:37.1 C (98.8 F) Intake/Output Summary (Last 24 hours) at 12/30/2022 1150 Last data filed at 12/30/2022 0900 Gross per 24 hour Intake 2866 ml Output 1000 ml Net 1866 ml Physical Exam Vitals and nursing note reviewed. Constitutional: General: He is not in acute distress. Comments: Patient appears more disheveled and unrecognizable compared to office visit in August 2022. HENT: Mouth/Throat: Mouth: Mucous membranes are moist. Pharynx: Oropharynx is clear. Cardiovascular: Rate and Rhythm: Normal rate. Rhythm irregular. Pulses: Normal pulses. Heart sounds: Normal heart sounds. No murmur heard. Pulmonary: Effort: Pulmonary effort is normal. No respiratory distress. Breath sounds: Wheezing present. Abdominal: General: Bowel sounds are normal. Musculoskeletal: Right upper arm: Normal. Cervical back: Normal range of motion and neck supple. Right lower leg: No edema. Left lower leg: No edema. Comments: Patient's left arm is in a sling with ecchymoses over the upper aspect. Patient was unable to lift left arm by himself but was able to lift it with his right arm. Sensation intact grossly. Strength 3/5. Skin: General: Skin is warm and dry. Capillary Refill: Capillary refill takes less than 2 seconds. Neurological: General: No focal deficit present. Mental Status: He is alert. Polanco: No Drains: No Central Line/Port: No Intubated: No Diet: NPO diet Medications: acetaminophen, 1,000 mg, Oral, q8h Or Acetaminophen, 1,000 mg, Per G Tube, q8h apixaban, 5 mg, Oral, BID folic acid, 1 mg, Oral, Daily ipratropium-albuterol, 3 mL, Nebulization, Q4H while awake metoprolol succinate XL, 100 mg, Oral, BID montelukast, 10 mg, Oral, qPM nicotine, 1 patch, TransDERmal, Daily Followed by [START ON 02/09/2023] nicotine, 1 patch, TransDERmal, Daily Followed by [START ON 02/23/2023] nicotine, 1 patch, TransDERmal, Daily pantoprazole, 40 mg, Oral, q AM rosuvastatin, 40 mg, Oral, Nightly sacubitril-valsartan, 1 tablet, Oral, BID sertraline, 100 mg, Oral, q AM spironolactone, 25 mg, Oral, Nightly therapeutic multivitamin-minerals, 1 tablet, Oral, Daily Thiamine Mononitrate, 100 mg, Oral, Daily Continuous Infusions: sodium chloride, 100 mL/hr, Last Rate: 100 mL/hr (12/30/22 0800) PRN Meds: PRN medications: albuterol, LORazepam OR LORazepam OR LORazepam OR LORazepam OR LORazepam OR LORazepam OR LORazepam OR LORazepam, magnesium sulfate OR magnesium sulfate, ondansetron ODT OR ondansetron, polyethylene glycol (PEG) 3350, potassium chloride CR OR potassium chloride OR potassium chloride (KCl) in 500 mL IVPB (peripheral line), sodium phosphate IVPB OR sodium phosphate IVPB OR sodium phosphate IVPB, traMADol OR traMADol Labs: CBC: Results from last 7 days Lab Units 12/30/22 0233 12/29/22 1815 12/29/22 1411 WBC AUTO 10*3/uL 12.7* 14.9* 18.3* HEMOGLOBIN g/dL 10.5* 10.8* 12.6* HEMATOCRIT % 29.9* 31.2* 35.8* PLATELETS AUTO 10*3/uL 168 181 238 NEUTROS PCT AUTO % 83.5* 88.3* 88.9* LYMPHS PCT AUTO % 5.9* 3.4* 3.1* MONOS PCT AUTO % 10.0 8.0 7.9 EOS PCT AUTO % 0.2* 0.1* 0.0* BMP: Results from last 7 days Lab Units 12/30/22 0609 12/30/22 0233 12/29/22 2206 SODIUM mmol/L 121* 119* 117* POTASSIUM mmol/L 3.7 3.7 3.5 CHLORIDE mmol/L 90* 89* 84* CO2 mmol/L 31* 32* 33* BUN mg/dL 17 19 22* CREATININE mg/dL 0.59* 0.60* 0.71 GLUCOSE mg/dL 120* 115* 112* CALCIUM mg/dL 8.4 7.9* 8.0* LIVER PROFILE: Results from last 7 days Lab Units 12/30/22 0609 12/30/22 0233 12/29/22 1411 ALK PHOS U/L 62 63 112 BILIRUBIN TOTAL mg/dL 0.8 0.9 1.3 BILIRUBIN DIRECT mg/dL -- 0.0 0.0 PROTEIN TOTAL g/dL 5.6* 5.5* 7.0 ALT U/L 30 AST U/L 49* 54* 72* PT/INR: Results from last 7 days Lab Units 12/30/22232 APTT s 36.0* INR 1.2* CARDIAC ENZYMES: Results from last 7 days Lab Units 12/30/22 0233 12/29/22 1411 CK TOTAL U/L 223* 448* TROPONIN I ng/mL -- 0.019 Procalcitonin: No results found for: PROCAL Glucose: ASSESSMENT/PLAN: Patient Active Problem List Diagnosis Date Noted Hyponatremia 12/29/2022 COPD exacerbation (HCC) 09/13/2022 Alcohol abuse 07/28/2022 Presence of implantable cardioverter-defibrillator (ICD) 07/19/2022 Chest pain, unspecified type 07/17/2022 Hypochloremia 07/17/2022 Tobacco abuse 07/17/2022 HFrEF (heart failure with reduced ejection fraction) (CMS/HCC) (HCC) 07/17/2022 Paroxysmal atrial fibrillation (CMS/HCC) (HCC) 08/25/2021 History of rib fracture 08/25/2021 Chronic hyponatremia 08/25/2021 Essential hypertension 08/25/2021 COPD (chronic obstructive pulmonary disease) (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 History of adenomatous polyp of colon 11/18/2019 Diverticulosis of large intestine without diverticulitis 10/27/2019 Compression fracture of thoracic vertebra with routine healing 10/07/2019 Osteoporosis 10/07/2019 Venous stasis dermatitis of left lower extremity 07/17/2017 Current moderate episode of major depressive disorder without prior episode (HCC) 04/10/2017 Cor pulmonale, acute (CMS/HCC) (HCC) 02/01/2016 Raynaud phenomenon 09/10/2015 Severe hyponatremia (improving) with hypochloremia Chronic hyponatremia 2/2 likely beer potomania History of alcohol abuse Patient has a history of chronic hyponatremia with a baseline of 127-128. Patient also has a history of alcohol abuse and seems to have worsened over the last few months. Hyponatremia currently likely multifactorial with lack of oral intake and history of beer potomania. Urine studies will help show which process is more prominent. IV hydration for a few hours with a recheck of sodium this afternoon. Addiction medicine has been consulted and started on Ativan protocol per [facility]. Patient is a poor historian but likely last drink was 24 hours ago. -Transfer from ICU to telemetry -Pain management -Tylenol 1000 mg as needed -Daily labs -CBC with differential -CMP -CIWA -Ativan protocol per CIWV -mIVF NS @ 125 mL/h for 4 hours -Folic acid -Multivitamin -Thiamine replacement -B12 level -Urine studies -Osmolality -Sodium -Consults -Addiction medicine -PT/OT -CM/SW Recent left Humoral fracture History of osteoporosis Patient had a humeral fracture at a previous ED presentation on 12/26. According to the note patient's injury occurred approximately around 12/23. Patient was to follow-up with orthopedics but never did. New imaging shows worsening displacement. Physical exam shows motor weakness without gross loss of sensation. -Pain management -DC Tramadol every 6 hours as needed 50-100 mg -Concern to lower seizure threshold in a patient with concern for alcohol withdrawal -IV morphine 1 mg every 4 hours as needed -consults -Orthopedics -PT/OT HFrEF/cor pulmonale with ICD Patient has an ejection fraction of 25% per echo in July 2022. Severe global hypokinesis present. Mild to moderate right-sided systolic dysfunction. ICD check last performed on 11/28. -Continue home medications -Rosuvastatin 40 mg nightly -Entresto 49-51 mg twice daily -Spironolactone 25 mg nightly Paroxysmal A-fib -Continue home medications -Eliquis 5 mg twice daily -Metoprolol succinate 100 mg twice daily COPD Tobacco -Maintain oxygen between 88 and 92% -Albuterol 2 puffs every 6 hours as needed -DuoNebs every 4 hours while awake -Singulair 10 mg p.o. daily -Nicotine patch Obstructive sleep apnea/HTN -AutoPap Depression -Hold Zoloft 100 mg daily Prolonged QTc FEN/GI/DVT IVF: NS @ 125 mL/h for 4 hours Electrolytes: Monitor and replace per protocols Diet: NPO diet GI PPX: Yes DVT Prophylaxis: No prophylaxis/Already on anticoagulation: Eliquis Telemetry: Currently on Telemetry / Reason: Concern for acute alcohol withdrawal in a patient with an ejection fraction of 25%. DISPOSITION: Patient just de-escalated from ICU care to the telemetry floor. Will require further management and specialist recommendations before disposition. Likely will be discharged sometime this week. Images from the original note were not included. [facility] [place] [facility] [place] [address] [place] [address] Critical Care Note: Patient - Krystina Markham, Age - 67 y.o. - 1955 Room Number - [id number] Date of Admission - 12/29/2022 1:50 PM Hospital Day - 1 HPI/Subjective 67-year-old male with multiple comorbid Conditions including asthma/COPD/atrial fibrillation systolic heart failure, excessive continuing alcohol abuse admitted to the ICU via emergency room where he was brought yesterday after patient was found on the ground by his ex- with a head wound emergency room evaluation showed a small scalp laceration which was sutured and a sodium of 115 Active Hospital Problem List Patient Active Problem List Diagnosis Apical mural thrombus Paroxysmal atrial fibrillation (CMS/HCC) (HCC) History of rib fracture Cor pulmonale, acute (CMS/HCC) (HCC) Chronic hyponatremia Essential hypertension Compression fracture of thoracic vertebra with routine healing Osteoporosis Diverticulosis of large intestine without diverticulitis History of adenomatous polyp of colon Raynaud phenomenon COPD (chronic obstructive pulmonary disease) ([facility]) Venous stasis dermatitis of left lower extremity Current moderate episode of major depressive disorder without prior episode (HCC) Chest pain, unspecified type HFrEF (heart failure with reduced ejection fraction) (CMS/HCC) (HCC) Hypochloremia Tobacco abuse Presence of implantable cardioverter-defibrillator (ICD) Alcohol abuse COPD exacerbation (HCC) Hyponatremia Events of Past 24 Hours Patient is more awake this morning, denies any headaches denies any chest pains All other systems reviewed Vitals height is 5' 9" (1.753 m) and weight is 190 lb 8 oz (86.4 kg). His oral temperature is 36.8 C (98.3 F). His blood pressure is 96/77 and his pulse is 63. His respiration is 16 and oxygen saturation is 96%. Range Data Temperature Range: Temp: 36.8 C (98.3 F)Temp Av.8 C (98.2 F) Min: 36.3 C (97.3 F) Max: 37.1 C (98.8 F) BP Range: Systolic (24hrs), Av , Min:91 , Max:132 Diastolic (24hrs), Av, Min:54, Max:83 Pulse Range: Pulse Av.1 Min: 63 Max: 99 Respiration Range: Resp Av Min: 15 Max: 24SpO2: 96 % 24hr Pulse Ox Range: SpO2 Av.1 % Min: 86 % Max: 100 % O2 Flow Rate (L/min): 3 L/min I/O Intake/Output Summary (Last 24 hours) at 12/30/2022 0781 Last data filed at 12/30/2022 0532 Gross per 24 hour Intake 2866 ml Output 300 ml Net 2566 ml I/O last 3 completed shifts: In: 2866 (33.2 mL/kg) [P.O.:60; I.V.:1806 (20.9 mL/kg); IV Piggyback:1000] Out: 300 (3.5 mL/kg) [Urine:300 (0.1 mL/kg/hr)] Weight: 86.4 kg @IODETAILS@ @[id number]@ Lines, ET tube, Devices Lines -none Medications acetaminophen, 1,000 mg, Oral, q8h Or Acetaminophen, 1,000 mg, Per G Tube, q8h folic acid, 1 mg, Oral, Daily ipratropium-albuterol, 3 mL, Nebulization, Q4H while awake metoprolol succinate XL, 100 mg, Oral, BID montelukast, 10 mg, Oral, qPM nicotine, 1 patch, TransDERmal, Daily Followed by [START ON 02/09/2023] nicotine, 1 patch, TransDERmal, Daily Followed by [START ON 02/23/2023] nicotine, 1 patch, TransDERmal, Daily pantoprazole, 40 mg, Oral, q AM rosuvastatin, 40 mg, Oral, Nightly sacubitril-valsartan, 1 tablet, Oral, BID sertraline, 100 mg, Oral, q AM spironolactone, 25 mg, Oral, Nightly therapeutic multivitamin-minerals, 1 tablet, Oral, Daily Thiamine Mononitrate, 100 mg, Oral, Daily PRN PRN medications: albuterol, LORazepam OR LORazepam OR LORazepam OR LORazepam OR LORazepam OR LORazepam OR LORazepam OR LORazepam, magnesium sulfate OR magnesium sulfate, ondansetron ODT OR ondansetron, polyethylene glycol (PEG) 3350, potassium chloride CR OR potassium chloride OR potassium chloride (KCl) in 500 mL IVPB (peripheral line), sodium phosphate IVPB OR sodium phosphate IVPB OR sodium phosphate IVPB, traMADol OR traMADol IV sodium chloride, 100 mL/hr, Last Rate: 100 mL/hr (12/30/22 0323) Diet/Nutrition NPO diet Exam Constitutional - Awake General Appearance well developed, well nourished HEENT - Normocephalic, atraumatic. PERRLA, sclarea is anicteric, conjunctiva is pink, nasal mucosa is normal, no congestion, external ears are intact. Lungs - Poor air entry bilaterally, diminished breathe sounds at the bases, Bilateral expiratory wheezing Chest expands equally. Cardiovascular - Heart sounds are normal. normal rate and rhythm regular, no murmur, gallop or rub. Abdomen - soft, nontender, nondistended, no masses or organomegaly Neurologic - CN II-XII are grossly intact. There are no focal motor deficits grossly Skin - bleeding, good turgor, normal warmth, small scalp laceration, bruising over left shoulder Extremities - no cyanosis, clubbing or edema Peripheral pulses- radial and pedal pulses 2+ bilaterally Lab Results CBC Lab Results Component Value Date WBC 12.7 (H) 12/30/2022 RBC 3.12 (L) 12/30/2022 HGB 10.5 (L) 12/30/2022 HCT 29.9 (L) 12/30/2022 PLT 168 12/30/2022 MCV 95.6 12/30/2022 MCH 33.7 12/30/2022 MCHC 35.2 12/30/2022 RDW 13.4 12/30/2022 NRBC 0.0 12/30/2022 LYMPHOPCT 5.9 (L) 12/30/2022 MONOPCT 10.0 12/30/2022 EOSPCT 0.2 (L) 12/30/2022 BASOPCT 0.4 12/30/2022 MONOSABS 1.3 (H) 12/30/2022 LYMPHSABS 0.7 (L) 12/30/2022 EOSABS 0.0 12/30/2022 BASOSABS 0.0 12/30/2022 BMP Lab Results Component Value Date NA 121 (L) 12/30/2022 K 3.7 12/30/2022 CL 90 (L) 12/30/2022 CO2 31 (H) 12/30/2022 BUN 17 12/30/2022 CREATININE 0.59 (L) 12/30/2022 GLUCOSE 120 (H) 12/30/2022 LFTS Lab Results Component Value Date ALKPHOS 62 12/30/2022 ALT 23 12/30/2022 AST 49 (H) 12/30/2022 PROT 5.6 (L) 12/30/2022 BILITOT 0.8 12/30/2022 BILIDIR 0.0 12/30/2022 ABG No components found for: IFIO2, MODE, SETTIDVOL, SETPEEP INR Lab Results Component Value Date INR 1.2 (H) 12/30/2022 PROTIME 13.1 (H) 12/30/2022 APTT Recent Labs 12/30/22 0233 APTT 36.0* Lactic Acid No components found for: LACTA BNP No results for input(s): BNP in the last 72 hours. Cultures Radiology CXR portable:Results for orders placed during the hospital encounter of 12/29/22 XR chest 1 view Narrative Patient Name: KRYSTINA MARKHAM : 1955 Exam Date/Time: 12/29/2022 15:26 Procedure: XR CHEST 1 VIEW Ordering Provider: LU SAMANTHA Reason For Exam: SOB Examination: AP portable chest Clinical Indication: SOB Comparison: 09/12/2022 Findings: Heart size mildly enlarged, slightly more so than seen previously. Left-sided pacemaker extends leads to the right atrium, right ventricle and coronary sinus. There is some hilar prominence similar to comparison likely prominent pulmonary arteries unchanged. No focal consolidation or effusion. Some chest wall deformity seen along the right scapula and ribs unchanged with chronic full-thickness rotator cuff tear on the right. Impression Impression: 1. Mild cardiomegaly slightly worsened. Left-sided pacemaker. 2. No acute pulmonary process. Report Dictated on Electronically Signed By: Tristen Snider Electronically Signed Date/Time: 12/29/2022 3:22 PM EDT Reviewed (See actual reports for details) ASSESSMENT AND PLAN Hyponatremia most likely related to beer potomania, gradually improving continue IV fluids monitor BMP closely Fall with head injury with small scalp lacerations, -sutured lacerationrelated to alcohol intoxication, CT head and neck unremarkable for any acute changes Alcohol abuse, patient on CIWA protocol, monitor mental status Hypoxia, repeat chest x-ray to rule out volume overload continue supplemental oxygen Left humeral fracture related to previous fall Paroxysmal atrial fibs. Restart apixaban Chronic systolic heart failure with an EF of 25%, cautious with fluid therapy COPD-bronchodilators Pulmonary hypertension most likely related to combination of systolic heart failure as well as COPD History of DVT/PE-resume apixaban Status post AICD Discussed with Dr Sierra, Patient to be transferred out of the ICU to [facility] service for continuing care Wean oxygen as tolerated. Keep O2 sat 90-92% Stress ulcer prophylaxis Use replacement protocols DVT prophylaxis Case discussed with nurse and patient/family. Questions and concerns addressed. Total critical care time caring for this patient with life threatening, unstable organ failure, including direct patient contact, management of life support systems, review of data including imaging and labs, discussions with other team members and physicians at least 35 minutes so far today, excluding procedures. This patient is being monitored remotely by chemical dependency services. Addiction physicians do not come to the hospital on weekends, and the plan would be for him to be seen in person by the addiction medicine specialist on Saturday. The patient is a 67-year-old male presenting to [facility] for evaluation of fall, scalp laceration. Chemical dependency consultation ordered due to the fact that the patient was consuming a 12 pack of beer a day. There is no history of any illicit drug use. When he presented to the hospital blood alcohol level was 0. Apparently he had not had any alcohol in over 24 hours. He was admitted for medical stabilization of hyponatremia, head injury, recent left humeral fracture. Since his admission to the hospital he has been placed on lorazepam on a as needed basis only For alcohol withdrawal. In reviewing the records, he did receive 1 mg intravenously at 2207 hrs. and 1 mg p.o. at 2028 hrs. In discussing the case with the patient's current nurse, he appears to be relatively stable. There are no overt signs of alcohol withdrawal syndrome at the present time. We will continue to monitor the patient remotely, continue lorazepam as needed. JAVIER JOSEPH MD Addiction Medicine 12/29/2022 at 11:22 PM I did spend over 35 minutes coordinating care,providing discussion on patient's medical,psychiatric and chemical dependency history, and discussion of treatment plan documented in this encounter [facility] 12-31-2022 Note Formatting of this n ote is different from the original. Images from the original note were not included. Care Management Progress Note Patient remains on 4 [place] today monitoring labs/lytes, NA at 125 and K+ 3.2, Hgb 8.9. FOBT ordered, serial BMP. ETOH withdraw with CIWA precautions continued. Reported fall at home with left shoulder pain/left humeral fx. Ortho stating no surgical intervention. Therapy to see, once patient has new sling per notes/LUE WB restriction. Patient continued on 2L O2 NC, weaning as tolerated. Discharge plan pending PT recommendations. HHC following. Possible home oxygen evaluation prior to discharge. Psychiatry consult. Discharge Milestones and Delays Expected Date/Time: 01/01/[address] discharge order Enter post-discharge transportation status Complete med reconciliation Case mgmt discharge readiness PT discharge readiness OT discharge readiness Expected Discharge History Expected Date/Time Set By Reviewed At 01/01/2023 SHAYLEE Gaston 12/31/2022 10:35 AM 12/31/2022 Alice Smith MD 12/29/2022 5:36 PM 12/31/2022 Alice Smith MD 12/29/2022 5:02 PM 01/01/2023 KLAUDIA May 12/29/2022 4:50 PM Length of Stay (Days): 2 GMLOS: No GMLOS Documented [facility] 12-31-2022 Consult note Associated Order (s): IP CONSULT TO ADDICTION MEDICINE Images from the original note were not included. Addiction Medicine Patient: Krystina Markham Admit Date: 12/29/2022 Primary Care Physician: JAMIA SIERRA MD History of Present Illness Is a 67-year-old male presenting to [facility] for evaluation and treatment of fall, scalp laceration. Chemical dependency consultation ordered due to the fact that the patient was consuming approximately 12 pack of beer per day. No history of any illicit drug use. There is a clear history loss of control, increased tolerance, continued use despite adverse consequences. Withdrawal positive for anxiety, sweats, tremors no definite history of DTs or seizures. Patient stated that he had not consumed any alcohol for over 24 hours before admission-- his blood alcohol level was 0. In reference to previous treatment, the patient did state that he was involved in treatment at [facility] in the distant past. He was rather vague about period of sustained sobriety. He has attended 12-step meetings on a very limited basis but did not feel that they were valuable. Patient is also being monitored by the medical team for hyponatremia ,left humeral fracture, COPD, atrial fibrillation. Patient has been monitored for withdrawal and has been ordered lorazepam on a as needed basis. He did not require any as needed lorazepam yesterday, but did receive one 1 mg dose at 337 hours today. Social History Socioeconomic History Marital status: Spouse name: Not on file Number of children: Not on file Years of education: Not on file Highest education level: Not on file Occupational History Not on file Tobacco Use Smoking status: Every Day Packs/day: 0.25 Years: 40.00 Pack years: 10.00 Types: Cigarettes Start date: 1972 Smokeless tobacco: Never Tobacco comments: 8 cig daily Substance and Sexual Activity Alcohol use: Yes Alcohol/week: 7.0 standard drinks Types: 7 Cans of beer per week Comment: once beer daily Drug use: Never Sexual activity: Not on file Other Topics Concern Not on file Social History Narrative Not on file Social Determinants of Health Financial Resource Strain: Not on file Food Insecurity: Not on file Transportation Needs: Not on file Physical Activity: Not on file Stress: Not on file Social Connections: Not on file Intimate Partner Violence: Not At Risk Fear of Current or Ex-Partner: No Emotionally Abused: No Physically Abused: No Sexually Abused: No Housing Stability: Not on file Past Medical History: Diagnosis Date Alcohol consumption heavy 09/10/2015 Asthma Atrial fibrillation ([facility]) ([facility]) CHF (congestive heart failure) ([facility]) ([facility]) 01/31/2016 COPD (chronic obstructive pulmonary disease) ([facility]) 09/10/2015 Cor, pulmonale, acute (CMS/HCC) (HCC) Deep venous thrombosis (HCC) 02/2016 Depression Hx of blood clots Obesity 09/10/2015 DELORES (obstructive sleep apnea) Pulmonary embolus (HCC) 6 16 Raynaud phenomenon 09/10/2015 Smoker 09/10/2015 Past Surgical History: Procedure Laterality Date ABDOMINAL SURGERY BRONCHOSCOPY 02/25/2020 BRONCHOSCOPY (HISTORICAL) 02/25/2020 COLONOSCOPY 10/27/[address] CHEST ANGIOGRAM W AND/OR WO IV CONTRAST 07/12/2022 CT CHEST ANGIOGRAM W AND/OR WO IV CONTRAST 07/12/2022 [facility] CT IMAGING FINGER AMPUTATION Left HERNIA REPAIR NOSE SURGERY Family History Problem Relation Name Age of Onset Asthma Father defects Father Cancer Father Asthma Sister Heart disease Mother Heart disease Brother Pacemaker Mother defects Sister Cancer Mother Diabetes Mother Labs Recent Results (from the past 48 hour(s)) ECG 12 lead Collection Time: 12/29/22 2:01 PM Result Value Ref Range Heart Rate 88 bpm QRSD Interval 187 ms QT Interval 511 ms QTC Interval 619 ms P [place] degrees QRS [place] 264 degrees T Wave [place] 57 degrees VA Interval ms Basic metabolic panel Collection Time: 12/29/22 2:11 PM Result Value Ref Range SODIUM 115 (LL) 135 - 145 mmol/L POTASSIUM 3.4 (L) 3.5 - 5.1 mmol/L CHLORIDE 77 (L) 98 - 107 mmol/L CARBON DIOXIDE 34 (H) 22 - 30 mmol/L UREA NITROGEN 22 (H) 9 - 20 mg/dL CREATININE 0.69 0.66 - 1.25 mg/dL GLUCOSE 174 (H) 70 - 100 mg/dL CALCIUM 8.8 8.4 - 10.4 mg/dL ANION GAP 4 3 - 13 mmol/L eGFR >90.0 >60.0 mL/min/1.73m*2 CBC auto differential Collection Time: 12/29/22 2:11 PM Result Value Ref Range Auto WBC 18.3 (H) 3.6 - 10.7 10*3/uL RBC 3.75 (L) 4.40 - 5.90 10*6/uL Hemoglobin 12.6 (L) 13.0 - 18.0 g/dL Hematocrit 35.8 (L) 40.0 - 52.0 % MCV 95.6 80.0 - 98.0 fL MCH 33.7 26.0 - 34.0 pg MCHC 35.2 32.0 - 36.0 % RDW 13.7 11.5 - 14.5 % Platelets 238 140 - 440 10*3/uL MPV 8.3 7.4 - 12.4 fL nRBC 0.1 0.0 - 2.0 /100 WBCs Neutrophils Relative 88.9 (H) 40.0 - 80.0 % Lymphocytes Relative 3.1 (L) 20.0 - 40.0 % Monocytes Relative 7.9 2.0 - 10.0 % Eosinophils Relative 0.0 (L) 1.0 - 6.0 % Basophils Relative 0.1 0.0 - 2.0 % Neutrophils Absolute 16.2 (H) 1.8 - 7.0 10*3/uL Lymphocytes Absolute 0.6 (L) 1.0 - 4.3 10*3/uL Monocytes Absolute 1.4 (H) 0.0 - 0.8 10*3/uL Eosinophils Absolute 0.0 0.0 - 0.5 10*3/uL Basophils Absolute 0.0 0.0 - 0.2 10*3/uL Hepatic function panel Collection Time: 12/29/22 2:11 PM Result Value Ref Range BILIRUBIN, TOTAL 1.3 0.2 - 1.3 mg/dL BILIRUBIN, DIRECT 0.0 0.0 - 0.3 mg/dL ALKALINE PHOSPHATASE 112 38 - 126 U/L AST (SGOT) 72 (H) 15 - 46 U/L ALT 30 0 - 49 U/L ALBUMIN 4.0 3.5 - 5.0 g/dL TOTAL PROTEIN 7.0 6.3 - 8.2 g/dL CK Collection Time: 12/29/22 2:11 PM Result Value Ref Range CK 448 (H) 30 - 170 U/L Troponin I Collection Time: 12/29/22 2:11 PM Result Value Ref Range TROPONIN I 0.019 0.000 - 0.034 ng/mL Ethanol Collection Time: 12/29/22 2:11 PM Result Value Ref Range ETHANOL IN SER/PLAS <0.010 0.000 - 0.010 g/dL POCT venous blood gas Collection Time: 12/29/22 2:27 PM Result Value Ref Range pH, Venous 7.460 (H) 7.330 - 7.430 pH pCO2, Venous 44.2 40 - 55 mm Hg pO2, Venous <29.6 (L) 30.0 - 50.0 mm Hg TCO2, Venous 32.7 (H) 24.0 - 28.0 mmol/L HCO3, Venous 31.4 (H) 23.0 - 27.0 mmol/L Base Excess, Venous 6.6 (H) -3 - 3 mmol/L SO2, Venous 51.2 (L) 60.0 - 80.0 % FIO2 2 CBC auto differential Collection Time: 12/29/22 6:15 PM Result Value Ref Range Auto WBC 14.9 (H) 3.6 - 10.7 10*3/uL RBC 3.28 (L) 4.40 - 5.90 10*6/uL Hemoglobin 10.8 (L) 13.0 - 18.0 g/dL Hematocrit 31.2 (L) 40.0 - 52.0 % MCV 95.1 80.0 - 98.0 fL MCH 32.9 26.0 - 34.0 pg MCHC 34.6 32.0 - 36.0 % RDW 13.5 11.5 - 14.5 % Platelets 181 140 - 440 10*3/uL MPV 7.9 7.4 - 12.4 fL nRBC 0.0 0.0 - 2.0 /100 WBCs Neutrophils Relative 88.3 (H) 40.0 - 80.0 % Lymphocytes Relative 3.4 (L) 20.0 - 40.0 % Monocytes Relative 8.0 2.0 - 10.0 % Eosinophils Relative 0.1 (L) 1.0 - 6.0 % Basophils Relative 0.2 0.0 - 2.0 % Neutrophils Absolute 13.2 (H) 1.8 - 7.0 10*3/uL Lymphocytes Absolute 0.5 (L) 1.0 - 4.3 10*3/uL Monocytes Absolute 1.2 (H) 0.0 - 0.8 10*3/uL Eosinophils Absolute 0.0 0.0 - 0.5 10*3/uL Basophils Absolute 0.0 0.0 - 0.2 10*3/uL Basic metabolic panel Collection Time: 12/29/22 6:16 PM Result Value Ref Range SODIUM 115 (LL) 135 - 145 mmol/L POTASSIUM 3.3 (L) 3.5 - 5.1 mmol/L CHLORIDE 83 (L) 98 - 107 mmol/L CARBON DIOXIDE 32 (H) 22 - 30 mmol/L UREA NITROGEN 21 (H) 9 - 20 mg/dL CREATININE 0.68 0.66 - 1.25 mg/dL GLUCOSE 113 (H) 70 - 100 mg/dL CALCIUM 8.1 (L) 8.4 - 10.4 mg/dL ANION GAP 1 (L) 3 - 13 mmol/L eGFR >90.0 >60.0 mL/min/1.73m*2 Magnesium Collection Time: 12/29/22 6:16 PM Result Value Ref Range MAGNESIUM 2.1 1.6 - 2.3 mg/dL Phosphorus Collection Time: 12/29/22 6:16 PM Result Value Ref Range PHOSPHORUS 2.8 2.5 - 4.5 mg/dL Drug screen panel, emergency Collection Time: 12/29/22 7:27 PM Result Value Ref Range AMPHETAMINE SCREEN Negative BARBITURATES SCREEN Negative BENZODIAZEPINE SCREEN Negative COCAINE METAB. SCREEN Negative METHADONE SCREEN Negative OPIATES SCREEN Negative OXYCODONE SCREEN Positive PHENCYCLIDINE SCREEN Negative MEDICATION ASSISTED TREATMENT PANEL Collection Time: 12/29/22 7:27 PM Result Value Ref Range AMPHETAMINES Negative Negative BARBITURATES Negative Negative BENZODIAZEPINES Negative Negative COCAINE Negative Negative METHADONE Negative Negative OPIATES Negative Negative OXYCODONE/OXYMORPHONE Positive Negative PCP Negative Negative BUPRENORPHINE SCREEN Negative Negative THC Negative Negative FENTANYL Negative Negative ETHANOL Negative Negative Basic metabolic panel Collection Time: 12/29/22 10:06 PM Result Value Ref Range SODIUM 117 (LL) 135 - 145 mmol/L POTASSIUM 3.5 3.5 - 5.1 mmol/L CHLORIDE 84 (L) 98 - 107 mmol/L CARBON DIOXIDE 33 (H) 22 - 30 mmol/L UREA NITROGEN 22 (H) 9 - 20 mg/dL CREATININE 0.71 0.66 - 1.25 mg/dL GLUCOSE 112 (H) 70 - 100 mg/dL CALCIUM 8.0 (L) 8.4 - 10.4 mg/dL ANION GAP 0 (L) 3 - 13 mmol/L eGFR >90.0 >60.0 mL/min/1.73m*2 Basic metabolic panel Collection Time: 12/30/22 2:33 AM Result Value Ref Range SODIUM 119 (LL) 135 - 145 mmol/L POTASSIUM 3.7 3.5 - 5.1 mmol/L CHLORIDE 89 (L) 98 - 107 mmol/L CARBON DIOXIDE 32 (H) 22 - 30 mmol/L UREA NITROGEN 19 9 - 20 mg/dL CREATININE 0.60 (L) 0.66 - 1.25 mg/dL GLUCOSE 115 (H) 70 - 100 mg/dL CALCIUM 7.9 (L) 8.4 - 10.4 mg/dL ANION GAP -1 (L) 3 - 13 mmol/L eGFR >90.0 >60.0 mL/min/1.73m*2 PROTIME/INR & PTT Collection Time: 12/30/22 2:33 AM Result Value Ref Range PROTHROMBIN TIME 13.1 (H) 9.0 - 12.0 s INR 1.2 (H) 0.9 - 1.1 APTT 36.0 (H) 20.0 - 30.5 s CBC auto differential Collection Time: 12/30/22 2:33 AM Result Value Ref Range Auto WBC 12.7 (H) 3.6 - 10.7 10*3/uL RBC 3.12 (L) 4.40 - 5.90 10*6/uL Hemoglobin 10.5 (L) 13.0 - 18.0 g/dL Hematocrit 29.9 (L) 40.0 - 52.0 % MCV 95.6 80.0 - 98.0 fL MCH 33.7 26.0 - 34.0 pg MCHC 35.2 32.0 - 36.0 % RDW 13.4 11.5 - 14.5 % Platelets 168 140 - 440 10*3/uL MPV 7.7 7.4 - 12.4 fL nRBC 0.0 0.0 - 2.0 /100 WBCs Neutrophils Relative 83.5 (H) 40.0 - 80.0 % Lymphocytes Relative 5.9 (L) 20.0 - 40.0 % Monocytes Relative 10.0 2.0 - 10.0 % Eosinophils Relative 0.2 (L) 1.0 - 6.0 % Basophils Relative 0.4 0.0 - 2.0 % Neutrophils Absolute 10.6 (H) 1.8 - 7.0 10*3/uL Lymphocytes Absolute 0.7 (L) 1.0 - 4.3 10*3/uL Monocytes Absolute 1.3 (H) 0.0 - 0.8 10*3/uL Eosinophils Absolute 0.0 0.0 - 0.5 10*3/uL Basophils Absolute 0.0 0.0 - 0.2 10*3/uL Calcium, ionized Collection Time: 12/30/22 2:33 AM Result Value Ref Range Calcium, Ion 4.20 (L) 4.30 - 5.20 mg/dL PH, IONIZED CALCIUM 7.49 (H) 7.31 - 7.46 Magnesium Collection Time: 12/30/22 2:33 AM Result Value Ref Range MAGNESIUM 2.2 1.6 - 2.3 mg/dL Phosphorus Collection Time: 12/30/22 2:33 AM Result Value Ref Range PHOSPHORUS 2.6 2.5 - 4.5 mg/dL Hepatic function panel Collection Time: 12/30/22 2:33 AM Result Value Ref Range BILIRUBIN, TOTAL 0.9 0.2 - 1.3 mg/dL BILIRUBIN, DIRECT 0.0 0.0 - 0.3 mg/dL ALKALINE PHOSPHATASE 63 38 - 126 U/L AST (SGOT) 54 (H) 15 - 46 U/L ALT 23 0 - 49 U/L ALBUMIN 2.9 (L) 3.5 - 5.0 g/dL TOTAL PROTEIN 5.5 (L) 6.3 - 8.2 g/dL CK Collection Time: 12/30/22 2:33 AM Result Value Ref Range CK 223 (H) 30 - 170 U/L Comprehensive metabolic panel Collection Time: 12/30/22 6:09 AM Result Value Ref Range SODIUM 121 (L) 135 - 145 mmol/L POTASSIUM 3.7 3.5 - 5.1 mmol/L CHLORIDE 90 (L) 98 - 107 mmol/L CARBON DIOXIDE 31 (H) 22 - 30 mmol/L ANION GAP 0 (L) 3 - 13 mmol/L UREA NITROGEN 17 9 - 20 mg/dL CREATININE 0.59 (L) 0.66 - 1.25 mg/dL GLUCOSE 120 (H) 70 - 100 mg/dL CALCIUM 8.4 8.4 - 10.4 mg/dL AST (SGOT) 49 (H) 15 - 46 U/L ALT 23 0 - 49 U/L ALKALINE PHOSPHATASE 62 38 - 126 U/L ALBUMIN 3.2 (L) 3.5 - 5.0 g/dL BILIRUBIN, TOTAL 0.8 0.2 - 1.3 mg/dL TOTAL PROTEIN 5.6 (L) 6.3 - 8.2 g/dL eGFR >90.0 >60.0 mL/min/1.73m*2 Vitamin B12 Collection Time: 12/30/22 6:09 AM Result Value Ref Range VITAMIN B12 >1,000 (H) 239 - 931 pg/mL Basic metabolic panel Collection Time: 12/30/22 4:40 PM Result Value Ref Range SODIUM 122 (L) 135 - 145 mmol/L POTASSIUM 3.4 (L) 3.5 - 5.1 mmol/L CHLORIDE 94 (L) 98 - 107 mmol/L CARBON DIOXIDE 30 22 - 30 mmol/L UREA NITROGEN 11 9 - 20 mg/dL CREATININE 0.57 (L) 0.66 - 1.25 mg/dL GLUCOSE 122 (H) 70 - 100 mg/dL CALCIUM 8.0 (L) 8.4 - 10.4 mg/dL ANION GAP -1 (L) 3 - 13 mmol/L eGFR >90.0 >60.0 mL/min/1.73m*2 Magnesium Collection Time: 12/30/22 4:40 PM Result Value Ref Range MAGNESIUM 2.1 1.6 - 2.3 mg/dL Osmolality, urine Collection Time: 12/30/22 6:13 PM Result Value Ref Range OSMOLALITY, URINE 361 300 - 1,000 mOsm/kg Sodium, urine, random Collection Time: 12/30/22 6:13 PM Result Value Ref Range SODIUM, URINE <5 (L) 30 - 90 mmol/L ECG 12 lead Collection Time: 12/30/22 7:38 PM Result Value Ref Range Heart Rate 76 bpm QRSD Interval 184 ms QT Interval 516 ms QTC Interval 581 ms P [place] 0 degrees QRS [place] 183 degrees T Wave [place] 125 degrees [place] Interval 228 ms Basic metabolic panel Collection Time: 12/30/22 8:06 PM Result Value Ref Range SODIUM 122 (L) 135 - 145 mmol/L POTASSIUM 3.2 (L) 3.5 - 5.1 mmol/L CHLORIDE 92 (L) 98 - 107 mmol/L CARBON DIOXIDE 29 22 - 30 mmol/L UREA NITROGEN 10 9 - 20 mg/dL CREATININE 0.54 (L) 0.66 - 1.25 mg/dL GLUCOSE 200 (H) 70 - 100 mg/dL CALCIUM 8.1 (L) 8.4 - 10.4 mg/dL ANION GAP 1 (L) 3 - 13 mmol/L eGFR >90.0 >60.0 mL/min/1.73m*2 Magnesium Collection Time: 12/30/22 8:06 PM Result Value Ref Range MAGNESIUM 2.0 1.6 - 2.3 mg/dL Phosphorus Collection Time: 12/30/22 8:06 PM Result Value Ref Range PHOSPHORUS 2.7 2.5 - 4.5 mg/dL Calcium, ionized Collection Time: 12/30/22 8:35 PM Result Value Ref Range Calcium, Ion 4.40 4.30 - 5.20 mg/dL PH, IONIZED CALCIUM 7.39 7.31 - 7.46 CBC auto differential Collection Time: 12/30/22 10:24 PM Result Value Ref Range Auto WBC 13.7 (H) 3.6 - 10.7 10*3/uL RBC 2.81 (L) 4.40 - 5.90 10*6/uL Hemoglobin 9.5 (L) 13.0 - 18.0 g/dL Hematocrit 27.6 (L) 40.0 - 52.0 % MCV 98.1 (H) 80.0 - 98.0 fL MCH 33.6 26.0 - 34.0 pg MCHC 34.2 32.0 - 36.0 % RDW 13.6 11.5 - 14.5 % Platelets 172 140 - 440 10*3/uL MPV 7.6 7.4 - 12.4 fL nRBC 0.0 0.0 - 2.0 /100 WBCs Neutrophils Relative 86.8 (H) 40.0 - 80.0 % Lymphocytes Relative 5.0 (L) 20.0 - 40.0 % Monocytes Relative 7.7 2.0 - 10.0 % Eosinophils Relative 0.3 (L) 1.0 - 6.0 % Basophils Relative 0.2 0.0 - 2.0 % Neutrophils Absolute 11.9 (H) 1.8 - 7.0 10*3/uL Lymphocytes Absolute 0.7 (L) 1.0 - 4.3 10*3/uL Monocytes Absolute 1.1 (H) 0.0 - 0.8 10*3/uL Eosinophils Absolute 0.0 0.0 - 0.5 10*3/uL Basophils Absolute 0.0 0.0 - 0.2 10*3/uL Comprehensive metabolic panel Collection Time: 12/31/22 3:00 AM Result Value Ref Range SODIUM 125 (L) 135 - 145 mmol/L POTASSIUM 3.2 (L) 3.5 - 5.1 mmol/L CHLORIDE 97 (L) 98 - 107 mmol/L CARBON DIOXIDE 26 22 - 30 mmol/L ANION GAP 3 3 - 13 mmol/L UREA NITROGEN 10 9 - 20 mg/dL CREATININE 0.49 (L) 0.66 - 1.25 mg/dL GLUCOSE 107 (H) 70 - 100 mg/dL CALCIUM 7.4 (L) 8.4 - 10.4 mg/dL AST (SGOT) 40 15 - 46 U/L ALT 20 0 - 49 U/L ALKALINE PHOSPHATASE 67 38 - 126 U/L ALBUMIN 2.8 (L) 3.5 - 5.0 g/dL BILIRUBIN, TOTAL 0.7 0.2 - 1.3 mg/dL TOTAL PROTEIN 5.2 (L) 6.3 - 8.2 g/dL eGFR >90.0 >60.0 mL/min/1.73m*2 PROTIME/INR & PTT Collection Time: 12/31/22 3:00 AM Result Value Ref Range PROTHROMBIN TIME 13.3 (H) 9.0 - 12.0 s INR 1.2 (H) 0.9 - 1.1 APTT 37.6 (H) 20.0 - 30.5 s CBC auto differential Collection Time: 12/31/22 3:00 AM Result Value Ref Range Auto WBC 14.5 (H) 3.6 - 10.7 10*3/uL RBC 2.70 (L) 4.40 - 5.90 10*6/uL Hemoglobin 8.9 (L) 13.0 - 18.0 g/dL Hematocrit 26.4 (L) 40.0 - 52.0 % MCV 97.5 80.0 - 98.0 fL MCH 33.0 26.0 - 34.0 pg MCHC 33.9 32.0 - 36.0 % RDW 13.9 11.5 - 14.5 % Platelets 181 140 - 440 10*3/uL MPV 7.9 7.4 - 12.4 fL nRBC 0.0 0.0 - 2.0 /100 WBCs Neutrophils Relative 85.8 (H) 40.0 - 80.0 % Lymphocytes Relative 4.3 (L) 20.0 - 40.0 % Monocytes Relative 9.2 2.0 - 10.0 % Eosinophils Relative 0.4 (L) 1.0 - 6.0 % Basophils Relative 0.3 0.0 - 2.0 % Neutrophils Absolute 12.4 (H) 1.8 - 7.0 10*3/uL Lymphocytes Absolute 0.6 (L) 1.0 - 4.3 10*3/uL Monocytes Absolute 1.3 (H) 0.0 - 0.8 10*3/uL Eosinophils Absolute 0.1 0.0 - 0.5 10*3/uL Basophils Absolute 0.1 0.0 - 0.2 10*3/uL ECG 12 lead Collection Time: 12/31/22 7:17 AM Result Value Ref Range Heart Rate 82 bpm QRSD Interval 174 ms QT Interval 472 ms QTC Interval 552 ms P [place] 0 degrees QRS [place] 248 degrees T Wave [place] 116 degrees [place] Interval 186 ms ECG 12 lead Collection Time: 12/31/22 9:37 AM Result Value Ref Range Heart Rate 77 bpm QRSD Interval 188 ms QT Interval 500 ms QTC Interval 567 ms P [place] degrees QRS [place] -72 degrees T Wave [place] 138 degrees [place] Interval ms Medications Home Meds: Prior to Admission medications Medication Sig Start Date End Date Taking? Authorizing Provider albuterol (2.5 MG/3ML) 0.083% nebulizer solution Take 3 mL (2.5 mg) by nebulization as needed for wheezing or shortness of breath. 09/14/22 12/13/22 Harman Thompson MD albuterol 108 (90 Base) MCG/ACT inhaler INHALE 2 PUFFS EVERY 6 HOURS NEEDED FOR WHEEZING OR SHORTNESS OF BREATH. 08/21/22 09/20/22 Jose M Wiggins MD [facility] B-1 100 MG tablet TAKE 1 TABLET BY MOUTH EVERY DAY 11/29/22 Jamia Sierra MD Eliquis 5 MG tablet Take 1 tablet (5 mg) by mouth 2 times daily. 09/21/22 12/20/22 Jamia Sierra MD ergocalciferol (Vitamin D2) 1.25 MG (15587 UT) capsule TAKE 1 CAPSULE BY MOUTH ONCE WEEKLY *DO NOT START BEFORE JUL 25 12/21/22 Jamia Sierra MD folic acid (Folvite) 1 MG tablet Take 1 tablet (1 mg) by mouth in the morning. 07/19/22 07/19/23 Lan Villegas MD ipratropium-albuterol (Duo-Neb) 0.5-2.5 mg/3 mL nebulizer solution Take 3 mL by nebulization 2 times daily as needed for wheezing or shortness of breath. 09/14/22 12/13/22 Harman Thompson MD magnesium oxide (Mag-Ox) 400 MG tablet Take 1 tablet by mouth in the morning. 04/09/22 Erick Ricardo MD metoprolol succinate XL (Toprol-XL) 100 MG 24 hr tablet Take 1 tablet (100 mg) by mouth in the morning and 1 tablet (100 mg) before bedtime. Do not crush or chew.. 07/30/22 10/28/22 PRIYA Perez CNP montelukast (Singulair) 10 MG tablet Take 1 tablet (10 mg) by mouth every evening. 11/20/22 02/18/23 Jamia Sierra MD Multiple Vitamins-Minerals (Therapeutic-M/Lutein) tablet TAKE 1 TABLET BY MOUTH IN THE MORNING, 1 TABLET AT NOON, AND 1 TABLET BEFORE BEDTIME 08/14/22 Jamia Sierra MD oxyCODONE-acetaminophen (Percocet) 5-325 MG tablet Take 1 tablet by mouth every 6 hours as needed for severe pain (7-10) for up to 4 days. 12/26/22 12/30/22 Kalia Foote MD rosuvastatin (Crestor) 40 MG tablet Take 1 tablet (40 mg) by mouth Nightly. 07/30/22 07/30/23 PRIYA Perez CNP sacubitril-valsartan (Entresto) 49-51 MG tablet Take 1 tablet by mouth 2 times daily. 09/14/22 12/13/22 Harman Thompson MD sertraline (Zoloft) 100 MG tablet Take 1 tablet (100 mg) by mouth every morning. 11/20/22 02/18/23 Jamia Sierra MD spironolactone (Aldactone) 25 MG tablet Take 1 tablet (25 mg) by mouth Nightly. 07/30/22 PRIYA Perez CNP tiotropium (Spiriva Respimat) 1.25 MCG/ACT inhaler Inhale 2 puffs daily. 09/14/22 Harman Thompson MD torsemide (Demadex) 20 MG tablet Take 20 mg by mouth in the morning and 20 mg before bedtime. 07/09/22 Historical Provider, Inpatient Scheduled Meds: acetaminophen, 1,000 mg, Oral, q8h Or Acetaminophen, 1,000 mg, Per G Tube, q8h apixaban, 5 mg, Oral, BID folic acid, 1 mg, Oral, Daily ipratropium-albuterol, 3 mL, Nebulization, Q4H while awake metoprolol succinate XL, 100 mg, Oral, BID montelukast, 10 mg, Oral, qPM nicotine, 1 patch, TransDERmal, Daily Followed by [START ON 02/09/2023] nicotine, 1 patch, TransDERmal, Daily Followed by [START ON 02/23/2023] nicotine, 1 patch, TransDERmal, Daily pantoprazole, 40 mg, Oral, q AM Potassium Bicarb-Citric Acid, 20 mEq, Oral, Daily rosuvastatin, 40 mg, Oral, Nightly sacubitril-valsartan, 1 tablet, Oral, BID [Held by provider] sertraline, 100 mg, Oral, q AM spironolactone, 25 mg, Oral, Nightly therapeutic multivitamin-minerals, 1 tablet, Oral, Daily Thiamine Mononitrate, 100 mg, Oral, Daily Inpatient PRN Meds: PRN medications: albuterol, LORazepam OR LORazepam OR LORazepam OR LORazepam OR LORazepam OR LORazepam OR LORazepam OR LORazepam, morphine, ondansetron ODT OR ondansetron, polyethylene glycol (PEG) 3350 Exam Vitals: 12/31/22 0302 12/31/22 0655 12/31/22 0758 12/31/22 0800 BP: 118/70 126/67 BP Location: Right arm Patient Position: Lying Lying Pulse: 75 89 76 Resp: 18 16 16 Temp: 36.2 C (97.1 F) 37.2 C (99 F) TempSrc: Temporal Temporal SpO2: 95% 92% 94% 95% Weight: Height: Physical Exam On approaching the patient, he is bedridden, very fatigued, moderately sedated. He was very slow to respond to questions. His responses were quite limited. He was oriented x4. There are no overt auditory, tactile or visual disturbances. At this point in time minimal signs of alcohol withdrawal are noted. He will remain on lorazepam 1 mg as needed only. As patient improves cognitively and medically can discuss treatment options . JAVIER JOSEPH MD Addiction Medicine 12/31/2022 at 11:13 AM --55-- minutes were spent reviewing the patient's records, evaluating the patient, entering orders, coordinating care with the treatment team, and creating a progress note. [facility] 12-31-2022 Consult note Associated Order (s): IP CONSULT TO ADDICTION MEDICINE Images from the original note were not included. Addiction Medicine Patient: Krystina Markham Admit Date: 12/29/2022 Primary Care Physician: JAMIA SIERRA MD History of Present Illness Is a 67-year-old male presenting to [facility] for evaluation and treatment of fall, scalp laceration. Chemical dependency consultation ordered due to the fact that the patient was consuming approximately 12 pack of beer per day. No history of any illicit drug use. There is a clear history loss of control, increased tolerance, continued use despite adverse consequences. Withdrawal positive for anxiety, sweats, tremors no definite history of DTs or seizures. Patient stated that he had not consumed any alcohol for over 24 hours before admission-- his blood alcohol level was 0. In reference to previous treatment, the patient did state that he was involved in treatment at [facility] in the distant past. He was rather vague about period of sustained sobriety. He has attended 12-step meetings on a very limited basis but did not feel that they were valuable. Patient is also being monitored by the medical team for hyponatremia ,left humeral fracture, COPD, atrial fibrillation. Patient has been monitored for withdrawal and has been ordered lorazepam on a as needed basis. He did not require any as needed lorazepam yesterday, but did receive one 1 mg dose at 337 hours today. Social History Socioeconomic History Marital status: Spouse name: Not on file Number of children: Not on file Years of education: Not on file Highest education level: Not on file Occupational History Not on file Tobacco Use Smoking status: Every Day Packs/day: 0.25 Years: 40.00 Pack years: 10.00 Types: Cigarettes Start date: 1972 Smokeless tobacco: Never Tobacco comments: 8 cig daily Substance and Sexual Activity Alcohol use: Yes Alcohol/week: 7.0 standard drinks Types: 7 Cans of beer per week Comment: once beer daily Drug use: Never Sexual activity: Not on file Other Topics Concern Not on file Social History Narrative Not on file Social Determinants of Health Financial Resource Strain: Not on file Food Insecurity: Not on file Transportation Needs: Not on file Physical Activity: Not on file Stress: Not on file Social Connections: Not on file Intimate Partner Violence: Not At Risk Fear of Current or Ex-Partner: No Emotionally Abused: No Physically Abused: No Sexually Abused: No Housing Stability: Not on file Past Medical History: Diagnosis Date Alcohol consumption heavy 09/10/2015 Asthma Atrial fibrillation ([facility] ([facility] CHF (congestive heart failure) ([facility]) ([facility]) 01/31/2016 COPD (chronic obstructive pulmonary disease) ([facility]) 09/10/2015 Cor, pulmonale, acute ([facility]) ([facility]) Deep venous thrombosis ([facility]) 02/2016 Depression Hx of blood clots Obesity 09/10/2015 DELORES (obstructive sleep apnea) Pulmonary embolus ([facility]) 6 16 Raynaud phenomenon 09/10/2015 Smoker 09/10/2015 Past Surgical History: Procedure Laterality Date ABDOMINAL SURGERY BRONCHOSCOPY 02/25/2020 BRONCHOSCOPY (HISTORICAL) 02/25/2020 COLONOSCOPY 10/27/[address] CHEST ANGIOGRAM W AND/OR WO IV CONTRAST 07/12/2022 CT CHEST ANGIOGRAM W AND/OR WO IV CONTRAST 07/12/2022 [facility] IMAGING FINGER AMPUTATION Left HERNIA REPAIR NOSE SURGERY Family History Problem Relation Name Age of Onset Asthma Father defects Father Cancer Father Asthma Sister Heart disease Mother Heart disease Brother Pacemaker Mother defects Sister Cancer Mother Diabetes Mother Labs Recent Results (from the past 48 hour(s)) ECG 12 lead Collection Time: 12/29/22 2:01 PM Result Value Ref Range Heart Rate 88 bpm QRSD Interval 187 ms QT Interval 511 ms QTC Interval 619 ms P [place] degrees QRS [place] 264 degrees T Wave [place] 57 degrees [place] Interval ms Basic metabolic panel Collection Time: 12/29/22 2:11 PM Result Value Ref Range SODIUM 115 (LL) 135 - 145 mmol/L POTASSIUM 3.4 (L) 3.5 - 5.1 mmol/L CHLORIDE 77 (L) 98 - 107 mmol/L CARBON DIOXIDE 34 (H) 22 - 30 mmol/L UREA NITROGEN 22 (H) 9 - 20 mg/dL CREATININE 0.69 0.66 - 1.25 mg/dL GLUCOSE 174 (H) 70 - 100 mg/dL CALCIUM 8.8 8.4 - 10.4 mg/dL ANION GAP 4 3 - 13 mmol/L eGFR >90.0 >60.0 mL/min/1.73m*2 CBC auto differential Collection Time: 12/29/22 2:11 PM Result Value Ref Range Auto WBC 18.3 (H) 3.6 - 10.7 10*3/uL RBC 3.75 (L) 4.40 - 5.90 10*6/uL Hemoglobin 12.6 (L) 13.0 - 18.0 g/dL Hematocrit 35.8 (L) 40.0 - 52.0 % MCV 95.6 80.0 - 98.0 fL MCH 33.7 26.0 - 34.0 pg MCHC 35.2 32.0 - 36.0 % RDW 13.7 11.5 - 14.5 % Platelets 238 140 - 440 10*3/uL MPV 8.3 7.4 - 12.4 fL nRBC 0.1 0.0 - 2.0 /100 WBCs Neutrophils Relative 88.9 (H) 40.0 - 80.0 % Lymphocytes Relative 3.1 (L) 20.0 - 40.0 % Monocytes Relative 7.9 2.0 - 10.0 % Eosinophils Relative 0.0 (L) 1.0 - 6.0 % Basophils Relative 0.1 0.0 - 2.0 % Neutrophils Absolute 16.2 (H) 1.8 - 7.0 10*3/uL Lymphocytes Absolute 0.6 (L) 1.0 - 4.3 10*3/uL Monocytes Absolute 1.4 (H) 0.0 - 0.8 10*3/uL Eosinophils Absolute 0.0 0.0 - 0.5 10*3/uL Basophils Absolute 0.0 0.0 - 0.2 10*3/uL Hepatic function panel Collection Time: 12/29/22 2:11 PM Result Value Ref Range BILIRUBIN, TOTAL 1.3 0.2 - 1.3 mg/dL BILIRUBIN, DIRECT 0.0 0.0 - 0.3 mg/dL ALKALINE PHOSPHATASE 112 38 - 126 U/L AST (SGOT) 72 (H) 15 - 46 U/L ALT 30 0 - 49 U/L ALBUMIN 4.0 3.5 - 5.0 g/dL TOTAL PROTEIN 7.0 6.3 - 8.2 g/dL CK Collection Time: 12/29/22 2:11 PM Result Value Ref Range CK 448 (H) 30 - 170 U/L Troponin I Collection Time: 12/29/22 2:11 PM Result Value Ref Range TROPONIN I 0.019 0.000 - 0.034 ng/mL Ethanol Collection Time: 12/29/22 2:11 PM Result Value Ref Range ETHANOL IN SER/PLAS <0.010 0.000 - 0.010 g/dL POCT venous blood gas Collection Time: 12/29/22 2:27 PM Result Value Ref Range pH, Venous 7.460 (H) 7.330 - 7.430 pH pCO2, Venous 44.2 40 - 55 mm Hg pO2, Venous <29.6 (L) 30.0 - 50.0 mm Hg TCO2, Venous 32.7 (H) 24.0 - 28.0 mmol/L HCO3, Venous 31.4 (H) 23.0 - 27.0 mmol/L Base Excess, Venous 6.6 (H) -3 - 3 mmol/L SO2, Venous 51.2 (L) 60.0 - 80.0 % FIO2 2 CBC auto differential Collection Time: 12/29/22 6:15 PM Result Value Ref Range Auto WBC 14.9 (H) 3.6 - 10.7 10*3/uL RBC 3.28 (L) 4.40 - 5.90 10*6/uL Hemoglobin 10.8 (L) 13.0 - 18.0 g/dL Hematocrit 31.2 (L) 40.0 - 52.0 % MCV 95.1 80.0 - 98.0 fL MCH 32.9 26.0 - 34.0 pg MCHC 34.6 32.0 - 36.0 % RDW 13.5 11.5 - 14.5 % Platelets 181 140 - 440 10*3/uL MPV 7.9 7.4 - 12.4 fL nRBC 0.0 0.0 - 2.0 /100 WBCs Neutrophils Relative 88.3 (H) 40.0 - 80.0 % Lymphocytes Relative 3.4 (L) 20.0 - 40.0 % Monocytes Relative 8.0 2.0 - 10.0 % Eosinophils Relative 0.1 (L) 1.0 - 6.0 % Basophils Relative 0.2 0.0 - 2.0 % Neutrophils Absolute 13.2 (H) 1.8 - 7.0 10*3/uL Lymphocytes Absolute 0.5 (L) 1.0 - 4.3 10*3/uL Monocytes Absolute 1.2 (H) 0.0 - 0.8 10*3/uL Eosinophils Absolute 0.0 0.0 - 0.5 10*3/uL Basophils Absolute 0.0 0.0 - 0.2 10*3/uL Basic metabolic panel Collection Time: 12/29/22 6:16 PM Result Value Ref Range SODIUM 115 (LL) 135 - 145 mmol/L POTASSIUM 3.3 (L) 3.5 - 5.1 mmol/L CHLORIDE 83 (L) 98 - 107 mmol/L CARBON DIOXIDE 32 (H) 22 - 30 mmol/L UREA NITROGEN 21 (H) 9 - 20 mg/dL CREATININE 0.68 0.66 - 1.25 mg/dL GLUCOSE 113 (H) 70 - 100 mg/dL CALCIUM 8.1 (L) 8.4 - 10.4 mg/dL ANION GAP 1 (L) 3 - 13 mmol/L eGFR >90.0 >60.0 mL/min/1.73m*2 Magnesium Collection Time: 12/29/22 6:16 PM Result Value Ref Range MAGNESIUM 2.1 1.6 - 2.3 mg/dL Phosphorus Collection Time: 12/29/22 6:16 PM Result Value Ref Range PHOSPHORUS 2.8 2.5 - 4.5 mg/dL Drug screen panel, emergency Collection Time: 12/29/22 7:27 PM Result Value Ref Range AMPHETAMINE SCREEN Negative BARBITURATES SCREEN Negative BENZODIAZEPINE SCREEN Negative COCAINE METAB. SCREEN Negative METHADONE SCREEN Negative OPIATES SCREEN Negative OXYCODONE SCREEN Positive PHENCYCLIDINE SCREEN Negative MEDICATION ASSISTED TREATMENT PANEL Collection Time: 12/29/22 7:27 PM Result Value Ref Range AMPHETAMINES Negative Negative BARBITURATES Negative Negative BENZODIAZEPINES Negative Negative COCAINE Negative Negative METHADONE Negative Negative OPIATES Negative Negative OXYCODONE/OXYMORPHONE Positive Negative PCP Negative Negative BUPRENORPHINE SCREEN Negative Negative THC Negative Negative FENTANYL Negative Negative ETHANOL Negative Negative Basic metabolic panel Collection Time: 12/29/22 10:06 PM Result Value Ref Range SODIUM 117 (LL) 135 - 145 mmol/L POTASSIUM 3.5 3.5 - 5.1 mmol/L CHLORIDE 84 (L) 98 - 107 mmol/L CARBON DIOXIDE 33 (H) 22 - 30 mmol/L UREA NITROGEN 22 (H) 9 - 20 mg/dL CREATININE 0.71 0.66 - 1.25 mg/dL GLUCOSE 112 (H) 70 - 100 mg/dL CALCIUM 8.0 (L) 8.4 - 10.4 mg/dL ANION GAP 0 (L) 3 - 13 mmol/L eGFR >90.0 >60.0 mL/min/1.73m*2 Basic metabolic panel Collection Time: 12/30/22 2:33 AM Result Value Ref Range SODIUM 119 (LL) 135 - 145 mmol/L POTASSIUM 3.7 3.5 - 5.1 mmol/L CHLORIDE 89 (L) 98 - 107 mmol/L CARBON DIOXIDE 32 (H) 22 - 30 mmol/L UREA NITROGEN 19 9 - 20 mg/dL CREATININE 0.60 (L) 0.66 - 1.25 mg/dL GLUCOSE 115 (H) 70 - 100 mg/dL CALCIUM 7.9 (L) 8.4 - 10.4 mg/dL ANION GAP -1 (L) 3 - 13 mmol/L eGFR >90.0 >60.0 mL/min/1.73m*2 PROTIME/INR & PTT Collection Time: 12/30/22 2:33 AM Result Value Ref Range PROTHROMBIN TIME 13.1 (H) 9.0 - 12.0 s INR 1.2 (H) 0.9 - 1.1 APTT 36.0 (H) 20.0 - 30.5 s CBC auto differential Collection Time: 12/30/22 2:33 AM Result Value Ref Range Auto WBC 12.7 (H) 3.6 - 10.7 10*3/uL RBC 3.12 (L) 4.40 - 5.90 10*6/uL Hemoglobin 10.5 (L) 13.0 - 18.0 g/dL Hematocrit 29.9 (L) 40.0 - 52.0 % MCV 95.6 80.0 - 98.0 fL MCH 33.7 26.0 - 34.0 pg MCHC 35.2 32.0 - 36.0 % RDW 13.4 11.5 - 14.5 % Platelets 168 140 - 440 10*3/uL MPV 7.7 7.4 - 12.4 fL nRBC 0.0 0.0 - 2.0 /100 WBCs Neutrophils Relative 83.5 (H) 40.0 - 80.0 % Lymphocytes Relative 5.9 (L) 20.0 - 40.0 % Monocytes Relative 10.0 2.0 - 10.0 % Eosinophils Relative 0.2 (L) 1.0 - 6.0 % Basophils Relative 0.4 0.0 - 2.0 % Neutrophils Absolute 10.6 (H) 1.8 - 7.0 10*3/uL Lymphocytes Absolute 0.7 (L) 1.0 - 4.3 10*3/uL Monocytes Absolute 1.3 (H) 0.0 - 0.8 10*3/uL Eosinophils Absolute 0.0 0.0 - 0.5 10*3/uL Basophils Absolute 0.0 0.0 - 0.2 10*3/uL Calcium, ionized Collection Time: 12/30/22 2:33 AM Result Value Ref Range Calcium, Ion 4.20 (L) 4.30 - 5.20 mg/dL PH, IONIZED CALCIUM 7.49 (H) 7.31 - 7.46 Magnesium Collection Time: 12/30/22 2:33 AM Result Value Ref Range MAGNESIUM 2.2 1.6 - 2.3 mg/dL Phosphorus Collection Time: 12/30/22 2:33 AM Result Value Ref Range PHOSPHORUS 2.6 2.5 - 4.5 mg/dL Hepatic function panel Collection Time: 12/30/22 2:33 AM Result Value Ref Range BILIRUBIN, TOTAL 0.9 0.2 - 1.3 mg/dL BILIRUBIN, DIRECT 0.0 0.0 - 0.3 mg/dL ALKALINE PHOSPHATASE 63 38 - 126 U/L AST (SGOT) 54 (H) 15 - 46 U/L ALT 23 0 - 49 U/L ALBUMIN 2.9 (L) 3.5 - 5.0 g/dL TOTAL PROTEIN 5.5 (L) 6.3 - 8.2 g/dL CK Collection Time: 12/30/22 2:33 AM Result Value Ref Range CK 223 (H) 30 - 170 U/L Comprehensive metabolic panel Collection Time: 12/30/22 6:09 AM Result Value Ref Range SODIUM 121 (L) 135 - 145 mmol/L POTASSIUM 3.7 3.5 - 5.1 mmol/L CHLORIDE 90 (L) 98 - 107 mmol/L CARBON DIOXIDE 31 (H) 22 - 30 mmol/L ANION GAP 0 (L) 3 - 13 mmol/L UREA NITROGEN 17 9 - 20 mg/dL CREATININE 0.59 (L) 0.66 - 1.25 mg/dL GLUCOSE 120 (H) 70 - 100 mg/dL CALCIUM 8.4 8.4 - 10.4 mg/dL AST (SGOT) 49 (H) 15 - 46 U/L ALT 23 0 - 49 U/L ALKALINE PHOSPHATASE 62 38 - 126 U/L ALBUMIN 3.2 (L) 3.5 - 5.0 g/dL BILIRUBIN, TOTAL 0.8 0.2 - 1.3 mg/dL TOTAL PROTEIN 5.6 (L) 6.3 - 8.2 g/dL eGFR >90.0 >60.0 mL/min/1.73m*2 Vitamin B12 Collection Time: 12/30/22 6:09 AM Result Value Ref Range VITAMIN B12 >1,000 (H) 239 - 931 pg/mL Basic metabolic panel Collection Time: 12/30/22 4:40 PM Result Value Ref Range SODIUM 122 (L) 135 - 145 mmol/L POTASSIUM 3.4 (L) 3.5 - 5.1 mmol/L CHLORIDE 94 (L) 98 - 107 mmol/L CARBON DIOXIDE 30 22 - 30 mmol/L UREA NITROGEN 11 9 - 20 mg/dL CREATININE 0.57 (L) 0.66 - 1.25 mg/dL GLUCOSE 122 (H) 70 - 100 mg/dL CALCIUM 8.0 (L) 8.4 - 10.4 mg/dL ANION GAP -1 (L) 3 - 13 mmol/L eGFR >90.0 >60.0 mL/min/1.73m*2 Magnesium Collection Time: 12/30/22 4:40 PM Result Value Ref Range MAGNESIUM 2.1 1.6 - 2.3 mg/dL Osmolality, urine Collection Time: 12/30/22 6:13 PM Result Value Ref Range OSMOLALITY, URINE 361 300 - 1,000 mOsm/kg Sodium, urine, random Collection Time: 12/30/22 6:13 PM Result Value Ref Range SODIUM, URINE <5 (L) 30 - 90 mmol/L ECG 12 lead Collection Time: 12/30/22 7:38 PM Result Value Ref Range Heart Rate 76 bpm QRSD Interval 184 ms QT Interval 516 ms QTC Interval 581 ms P [place] 0 degrees QRS [place] 183 degrees T Wave [place] 125 degrees [place] Interval 228 ms Basic metabolic panel Collection Time: 12/30/22 8:06 PM Result Value Ref Range SODIUM 122 (L) 135 - 145 mmol/L POTASSIUM 3.2 (L) 3.5 - 5.1 mmol/L CHLORIDE 92 (L) 98 - 107 mmol/L CARBON DIOXIDE 29 22 - 30 mmol/L UREA NITROGEN 10 9 - 20 mg/dL CREATININE 0.54 (L) 0.66 - 1.25 mg/dL GLUCOSE 200 (H) 70 - 100 mg/dL CALCIUM 8.1 (L) 8.4 - 10.4 mg/dL ANION GAP 1 (L) 3 - 13 mmol/L eGFR >90.0 >60.0 mL/min/1.73m*2 Magnesium Collection Time: 12/30/22 8:06 PM Result Value Ref Range MAGNESIUM 2.0 1.6 - 2.3 mg/dL Phosphorus Collection Time: 12/30/22 8:06 PM Result Value Ref Range PHOSPHORUS 2.7 2.5 - 4.5 mg/dL Calcium, ionized Collection Time: 12/30/22 8:35 PM Result Value Ref Range Calcium, Ion 4.40 4.30 - 5.20 mg/dL PH, IONIZED CALCIUM 7.39 7.31 - 7.46 CBC auto differential Collection Time: 12/30/22 10:24 PM Result Value Ref Range Auto WBC 13.7 (H) 3.6 - 10.7 10*3/uL RBC 2.81 (L) 4.40 - 5.90 10*6/uL Hemoglobin 9.5 (L) 13.0 - 18.0 g/dL Hematocrit 27.6 (L) 40.0 - 52.0 % MCV 98.1 (H) 80.0 - 98.0 fL MCH 33.6 26.0 - 34.0 pg MCHC 34.2 32.0 - 36.0 % RDW 13.6 11.5 - 14.5 % Platelets 172 140 - 440 10*3/uL MPV 7.6 7.4 - 12.4 fL nRBC 0.0 0.0 - 2.0 /100 WBCs Neutrophils Relative 86.8 (H) 40.0 - 80.0 % Lymphocytes Relative 5.0 (L) 20.0 - 40.0 % Monocytes Relative 7.7 2.0 - 10.0 % Eosinophils Relative 0.3 (L) 1.0 - 6.0 % Basophils Relative 0.2 0.0 - 2.0 % Neutrophils Absolute 11.9 (H) 1.8 - 7.0 10*3/uL Lymphocytes Absolute 0.7 (L) 1.0 - 4.3 10*3/uL Monocytes Absolute 1.1 (H) 0.0 - 0.8 10*3/uL Eosinophils Absolute 0.0 0.0 - 0.5 10*3/uL Basophils Absolute 0.0 0.0 - 0.2 10*3/uL Comprehensive metabolic panel Collection Time: 12/31/22 3:00 AM Result Value Ref Range SODIUM 125 (L) 135 - 145 mmol/L POTASSIUM 3.2 (L) 3.5 - 5.1 mmol/L CHLORIDE 97 (L) 98 - 107 mmol/L CARBON DIOXIDE 26 22 - 30 mmol/L ANION GAP 3 3 - 13 mmol/L UREA NITROGEN 10 9 - 20 mg/dL CREATININE 0.49 (L) 0.66 - 1.25 mg/dL GLUCOSE 107 (H) 70 - 100 mg/dL CALCIUM 7.4 (L) 8.4 - 10.4 mg/dL AST (SGOT) 40 15 - 46 U/L ALT 20 0 - 49 U/L ALKALINE PHOSPHATASE 67 38 - 126 U/L ALBUMIN 2.8 (L) 3.5 - 5.0 g/dL BILIRUBIN, TOTAL 0.7 0.2 - 1.3 mg/dL TOTAL PROTEIN 5.2 (L) 6.3 - 8.2 g/dL eGFR >90.0 >60.0 mL/min/1.73m*2 PROTIME/INR & PTT Collection Time: 12/31/22 3:00 AM Result Value Ref Range PROTHROMBIN TIME 13.3 (H) 9.0 - 12.0 s INR 1.2 (H) 0.9 - 1.1 APTT 37.6 (H) 20.0 - 30.5 s CBC auto differential Collection Time: 12/31/22 3:00 AM Result Value Ref Range Auto WBC 14.5 (H) 3.6 - 10.7 10*3/uL RBC 2.70 (L) 4.40 - 5.90 10*6/uL Hemoglobin 8.9 (L) 13.0 - 18.0 g/dL Hematocrit 26.4 (L) 40.0 - 52.0 % MCV 97.5 80.0 - 98.0 fL MCH 33.0 26.0 - 34.0 pg MCHC 33.9 32.0 - 36.0 % RDW 13.9 11.5 - 14.5 % Platelets 181 140 - 440 10*3/uL MPV 7.9 7.4 - 12.4 fL nRBC 0.0 0.0 - 2.0 /100 WBCs Neutrophils Relative 85.8 (H) 40.0 - 80.0 % Lymphocytes Relative 4.3 (L) 20.0 - 40.0 % Monocytes Relative 9.2 2.0 - 10.0 % Eosinophils Relative 0.4 (L) 1.0 - 6.0 % Basophils Relative 0.3 0.0 - 2.0 % Neutrophils Absolute 12.4 (H) 1.8 - 7.0 10*3/uL Lymphocytes Absolute 0.6 (L) 1.0 - 4.3 10*3/uL Monocytes Absolute 1.3 (H) 0.0 - 0.8 10*3/uL Eosinophils Absolute 0.1 0.0 - 0.5 10*3/uL Basophils Absolute 0.1 0.0 - 0.2 10*3/uL ECG 12 lead Collection Time: 12/31/22 7:17 AM Result Value Ref Range Heart Rate 82 bpm QRSD Interval 174 ms QT Interval 472 ms QTC Interval 552 ms P [place] 0 degrees QRS [place] 248 degrees T Wave [place] 116 degrees [place] Interval 186 ms ECG 12 lead Collection Time: 12/31/22 9:37 AM Result Value Ref Range Heart Rate 77 bpm QRSD Interval 188 ms QT Interval 500 ms QTC Interval 567 ms P [place] degrees QRS [place] -72 degrees T Wave [place] 138 degrees [place] Interval ms Medications Home Meds: Prior to Admission medications Medication Sig Start Date End Date Taking? Authorizing Provider albuterol (2.5 MG/3ML) 0.083% nebulizer solution Take 3 mL (2.5 mg) by nebulization as needed for wheezing or shortness of breath. 09/14/22 12/13/22 Harman Thompson MD albuterol 108 (90 Base) MCG/ACT inhaler INHALE 2 PUFFS EVERY 6 HOURS NEEDED FOR WHEEZING OR SHORTNESS OF BREATH. 08/21/22 09/20/22 Jose M Wiggins MD [facility] B-1 100 MG tablet TAKE 1 TABLET BY MOUTH EVERY DAY 11/29/22 Jamia Sierra MD Eliquis 5 MG tablet Take 1 tablet (5 mg) by mouth 2 times daily. 09/21/22 12/20/22 Jamia Sierra MD ergocalciferol (Vitamin D2) 1.25 MG (88951 UT) capsule TAKE 1 CAPSULE BY MOUTH ONCE WEEKLY *DO NOT START BEFORE JUL 25 12/21/22 Jamia Sierra MD folic acid (Folvite) 1 MG tablet Take 1 tablet (1 mg) by mouth in the morning. 07/19/22 07/19/23 Lan Villegas MD ipratropium-albuterol (Duo-Neb) 0.5-2.5 mg/3 mL nebulizer solution Take 3 mL by nebulization 2 times daily as needed for wheezing or shortness of breath. 09/14/22 12/13/22 Harman Thompson MD magnesium oxide (Mag-Ox) 400 MG tablet Take 1 tablet by mouth in the morning. 04/09/22 Erick ProviderMD metoprolol succinate XL (Toprol-XL) 100 MG 24 hr tablet Take 1 tablet (100 mg) by mouth in the morning and 1 tablet (100 mg) before bedtime. Do not crush or chew.. 07/30/22 10/28/22 Jessenia Crystal APRN - [facility] montelukast (Singulair) 10 MG tablet Take 1 tablet (10 mg) by mouth every evening. 11/20/22 02/18/23 Jamia Sierra MD Multiple Vitamins-Minerals (Therapeutic-M/Lutein) tablet TAKE 1 TABLET BY MOUTH IN THE MORNING, 1 TABLET AT NOON, AND 1 TABLET BEFORE BEDTIME 08/14/22 Jamia Sierra MD oxyCODONE-acetaminophen (Percocet) 5-325 MG tablet Take 1 tablet by mouth every 6 hours as needed for severe pain (7-10) for up to 4 days. 12/26/22 12/30/22 Kalia Foote MD rosuvastatin (Crestor) 40 MG tablet Take 1 tablet (40 mg) by mouth Nightly. 07/30/22 07/30/23 Jessenia Crystal APRN - [facility] sacubitril-valsartan (Entresto) 49-51 MG tablet Take 1 tablet by mouth 2 times daily. 09/14/22 12/13/22 Harman Thompson MD sertraline (Zoloft) 100 MG tablet Take 1 tablet (100 mg) by mouth every morning. 11/20/22 02/18/23 Jamia Sierra MD spironolactone (Aldactone) 25 MG tablet Take 1 tablet (25 mg) by mouth Nightly. 07/30/22 Jessenia Crystal APRN - [facility] tiotropium (Spiriva Respimat) 1.25 MCG/ACT inhaler Inhale 2 puffs daily. 09/14/22 Harman Thompson MD torsemide (Demadex) 20 MG tablet Take 20 mg by mouth in the morning and 20 mg before bedtime. 07/09/22 Historical Provider, Inpatient Scheduled Meds: acetaminophen, 1,000 mg, Oral, q8h Or Acetaminophen, 1,000 mg, Per G Tube, q8h apixaban, 5 mg, Oral, BID folic acid, 1 mg, Oral, Daily ipratropium-albuterol, 3 mL, Nebulization, Q4H while awake metoprolol succinate XL, 100 mg, Oral, BID montelukast, 10 mg, Oral, qPM nicotine, 1 patch, TransDERmal, Daily Followed by [START ON 02/09/2023] nicotine, 1 patch, TransDERmal, Daily Followed by [START ON 02/23/2023] nicotine, 1 patch, TransDERmal, Daily pantoprazole, 40 mg, Oral, q AM Potassium Bicarb-Citric Acid, 20 mEq, Oral, Daily rosuvastatin, 40 mg, Oral, Nightly sacubitril-valsartan, 1 tablet, Oral, BID [Held by provider] sertraline, 100 mg, Oral, q AM spironolactone, 25 mg, Oral, Nightly therapeutic multivitamin-minerals, 1 tablet, Oral, Daily Thiamine Mononitrate, 100 mg, Oral, Daily Inpatient PRN Meds: PRN medications: albuterol, LORazepam OR LORazepam OR LORazepam OR LORazepam OR LORazepam OR LORazepam OR LORazepam OR LORazepam, morphine, ondansetron ODT OR ondansetron, polyethylene glycol (PEG) 3350 Exam Vitals: 12/31/22 0302 12/31/22 0655 12/31/22 0758 12/31/22 0800 BP: 118/70 126/67 BP Location: Right arm Patient Position: Lying Lying Pulse: 75 89 76 Resp: 18 16 16 Temp: 36.2 C (97.1 F) 37.2 C (99 F) TempSrc: Temporal Temporal SpO2: 95% 92% 94% 95% Weight: Height: Physical Exam On approaching the patient, he is bedridden, very fatigued, moderately sedated. He was very slow to respond to questions. His responses were quite limited. He was oriented x4. There are no overt auditory, tactile or visual disturbances. At this point in time minimal signs of alcohol withdrawal are noted. He will remain on lorazepam 1 mg as needed only. As patient improves cognitively and medically can discuss treatment options . JAVIER JOSEPH MD Addiction Medicine 12/31/2022 at 11:13 AM --55-- minutes were spent reviewing the patient's records, evaluating the patient, entering orders, coordinating care with the treatment team, and creating a progress note. Associated Order(s): IP CONSULT TO ORTHOPAEDIC SURGERY Ortho Consult Patient: Krystina Markham Date of : 1955 Acct: [id number] PCP: JAMIA SIERRA MD Date of Admission: 12/29/2022 Date of Service: Pt seen/examined on 12/29/2022 Chief Complaint: Left shoulder pain History Of Present Illness: 67 y.o. male who presents with left shoulder pain after a fall from standing on 12/26. He initially presented to the ED and was discharged home. He reports having continued pain to the shoulder which is why he returned to the ED. He denies any new falls or injuries. Denies pain to other extremities. Denies neck and back pain. Denies numbness/tingling in extremities. Denies head trauma & loss of consciousness. Pertinent PMH HF w/ ICD, COPD, HTN. Patient has Hx of EtOH use. Patient ambulation status: no difficulty. Antiplatelets/Anticoagulation includes: Eliquis . Hx from chart and/or Pt. Past Medical History: Past Medical History: Diagnosis Date Alcohol consumption heavy 09/10/2015 Asthma Atrial fibrillation (CMS/HCC) ([facility]) CHF (congestive heart failure) (CMS/HCC) ([facility]) 01/31/2016 COPD (chronic obstructive pulmonary disease) ([facility]) 09/10/2015 Cor, pulmonale, acute (CMS/HCC) ([facility]) Deep venous thrombosis ([facility]) 02/2016 Depression Hx of blood clots Obesity 09/10/2015 DELORES (obstructive sleep apnea) Pulmonary embolus ([facility]) 6 16 Raynaud phenomenon 09/10/2015 Smoker 09/10/2015 Past Surgical History: Past Surgical History: Procedure Laterality Date ABDOMINAL SURGERY BRONCHOSCOPY 02/25/2020 BRONCHOSCOPY (HISTORICAL) 02/25/2020 COLONOSCOPY 10/27/[address] CHEST ANGIOGRAM W AND/OR WO IV CONTRAST 07/12/2022 CT CHEST ANGIOGRAM W AND/OR WO IV CONTRAST 07/12/2022 [facility] CT IMAGING FINGER AMPUTATION Left HERNIA REPAIR NOSE SURGERY Home Medications: Prior to Admission medications Medication Sig Start Date End Date Taking? Authorizing Provider albuterol (2.5 MG/3ML) 0.083% nebulizer solution Take 3 mL (2.5 mg) by nebulization as needed for wheezing or shortness of breath. 09/14/22 12/13/22 Harman Thompson MD albuterol 108 (90 Base) MCG/ACT inhaler INHALE 2 PUFFS EVERY 6 HOURS NEEDED FOR WHEEZING OR SHORTNESS OF BREATH. 08/21/22 09/20/22 Jose M Wiggins MD [facility] B[facility] 100 MG tablet TAKE 1 TABLET BY MOUTH EVERY DAY 11/29/22 Jamia Sierra MD Eliquis 5 MG tablet Take 1 tablet (5 mg) by mouth 2 times daily. 09/21/22 12/20/22 Jamia Sierra MD ergocalciferol (Vitamin D2) 1.25 MG (45686 UT) capsule TAKE 1 CAPSULE BY MOUTH ONCE WEEKLY *DO NOT START BEFORE JUL 25 12/21/22 Jamia Sierra MD folic acid (Folvite) 1 MG tablet Take 1 tablet (1 mg) by mouth in the morning. 07/19/22 07/19/23 Lan Villegas MD ipratropium-albuterol (Duo-Neb) 0.5-2.5 mg/3 mL nebulizer solution Take 3 mL by nebulization 2 times daily as needed for wheezing or shortness of breath. 09/14/22 12/13/22 Harman Thompson MD magnesium oxide (Mag-Ox) 400 MG tablet Take 1 tablet by mouth in the morning. 04/09/22 Erick ProviderMD metoprolol succinate XL (Toprol-XL) 100 MG 24 hr tablet Take 1 tablet (100 mg) by mouth in the morning and 1 tablet (100 mg) before bedtime. Do not crush or chew.. 07/30/22 10/28/22 Jessenia Crystal APRN - [facility] montelukast (Singulair) 10 MG tablet Take 1 tablet (10 mg) by mouth every evening. 11/20/22 02/18/23 Jamia Sierra MD Multiple Vitamins-Minerals (Therapeutic-M/Lutein) tablet TAKE 1 TABLET BY MOUTH IN THE MORNING, 1 TABLET AT NOON, AND 1 TABLET BEFORE BEDTIME 08/14/22 Jamia Sierra MD oxyCODONE-acetaminophen (Percocet) 5-325 MG tablet Take 1 tablet by mouth every 6 hours as needed for severe pain (7-10) for up to 4 days. 12/26/22 12/30/22 Kalia Foote MD rosuvastatin (Crestor) 40 MG tablet Take 1 tablet (40 mg) by mouth Nightly. 07/30/22 07/30/23 Jessenia Crystal APRN - [employer] sacubitril-valsartan (Entresto) 49-51 MG tablet Take 1 tablet by mouth 2 times daily. 09/14/22 12/13/22 Harman Thompson MD sertraline (Zoloft) 100 MG tablet Take 1 tablet (100 mg) by mouth every morning. 11/20/22 02/18/23 Jamia Sierra MD spironolactone (Aldactone) 25 MG tablet Take 1 tablet (25 mg) by mouth Nightly. 07/30/22 Jessenia Crystal APRN - [facility] tiotropium (Spiriva Respimat) 1.25 MCG/ACT inhaler Inhale 2 puffs daily. 09/14/22 Harman Thompson MD torsemide (Demadex) 20 MG tablet Take 20 mg by mouth in the morning and 20 mg before bedtime. 07/09/22 Historical Provider, Current Hospital Medications: Current Facility-Administered Medications: acetaminophen (Tylenol) tablet 1,000 mg, 1,000 mg, Oral, q8h OR Acetaminophen (Tylenol) 650 MG/20.3ML solution 1,000 mg, 1,000 mg, Per G Tube, q8h, Alice Smith MD albuterol 108 (90 Base) MCG/ACT inhaler 2 puff, 2 puff, Inhalation, q6h PRN, Alice Smith MD folic acid (Folvite) tablet 1 mg, 1 mg, Oral, Daily, Alice Smith MD ipratropium-albuterol (Duo-Neb) 0.5-2.5 mg/3 mL nebulizer solution 3 mL, 3 mL, Nebulization, Q4H while awake, Alice Smith MD LORazepam (Ativan) tablet 1 mg, 1 mg, Oral, q1h PRN OR LORazepam (Ativan) injection 1 mg, 1 mg, IntraVENous, q1h PRN OR LORazepam (Ativan) tablet 1 mg, 1 mg, Oral, q1h PRN OR LORazepam (Ativan) injection 2 mg, 2 mg, IntraVENous, q1h PRN OR LORazepam (Ativan) tablet 2 mg, 2 mg, Oral, q1h PRN OR LORazepam (Ativan) injection 2 mg, 2 mg, IntraVENous, q1h PRN OR LORazepam (Ativan) tablet 2 mg, 2 mg, Oral, q1h PRN OR LORazepam (Ativan) injection 4 mg, 4 mg, IntraVENous, q1h PRN, Alice Smith MD magnesium sulfate IVPB premix 2,000 mg, 2,000 mg, IntraVENous, PRN OR magnesium sulfate IVPB 4,000 mg, 4,000 mg, IntraVENous, PRN, Alice Smith MD metoprolol succinate XL (Toprol-XL) 24 hr tablet 100 mg, 100 mg, Oral, BID, Alice Smith MD montelukast (Singulair) tablet 10 mg, 10 mg, Oral, qPM, Alice Smith MD nicotine (Nicoderm, Step 1) 21 MG/24HR patch 1 patch, 1 patch, TransDERmal, Daily FOLLOWED BY [START ON 02/09/2023] nicotine (Nicoderm, Step 2) 14 MG/24HR patch 1 patch, 1 patch, TransDERmal, Daily FOLLOWED BY [START ON 02/23/2023] nicotine (Nicoderm, Step 3) 7 MG/24HR patch 1 patch, 1 patch, TransDERmal, Daily, Alice Smith MD ondansetron ODT (Zofran-ODT) disintegrating tablet 4 mg, 4 mg, Oral, q8h PRN OR ondansetron (Zofran) injection 4 mg, 4 mg, IntraVENous, q6h PRN, Alice Smith MD [START ON 12/30/2022] pantoprazole (ProtoNix) EC tablet 40 mg, 40 mg, Oral, q AM, Alice Smith MD polyethylene glycol (PEG) 3350 (Miralax) packet 17 g, 17 g, Oral, Daily PRN, Alice Smith MD potassium chloride CR (Klor-Con M20) ER tablet 40 mEq, 40 mEq, Oral, PRN OR potassium chloride (Klor-Con) packet 40 mEq, 40 mEq, Oral, PRN OR potassium chloride 40 mEq in sodium chloride 0.9 % 500 mL IVPB, 40 mEq, IntraVENous, PRN, Alice Smith MD rosuvastatin (Crestor) tablet 40 mg, 40 mg, Oral, Nightly, Alice Smith MD sacubitril-valsartan (Entresto) 49-51 MG per tablet 1 tablet, 1 tablet, Oral, BID, Alice Smith MD [START ON 12/30/2022] sertraline (Zoloft) tablet 100 mg, 100 mg, Oral, q AM, Alice Smith MD sodium chloride 0.9 % infusion, 100 mL/hr, IntraVENous, Continuous, KLAUDIA May, Last Rate: 100 mL/hr at 12/29/22 1705, 100 mL/hr at 12/29/22 1705 sodium chloride 0.9 % infusion, 100 mL/hr, IntraVENous, Continuous, Alice Smith MD sodium phosphates 10 mmol in dextrose 5 % 250 mL IVPB, 10 mmol, IntraVENous, PRN OR sodium phosphates 15 mmol in dextrose 5 % 250 mL IVPB, 15 mmol, IntraVENous, PRN OR sodium phosphates 20 mmol in sodium chloride 0.9 % 500 mL IVPB, 20 mmol, IntraVENous, PRN, Alice Smith MD spironolactone (Aldactone) tablet 25 mg, 25 mg, Oral, Nightly, Alice Smith MD therapeutic multivitamin-minerals (Theragran-M) tablet, 1 tablet, Oral, Daily, Alice Smith MD Thiamine Mononitrate (Vitamin B1) tablet 100 mg, 100 mg, Oral, Daily, Alice Smith MD traMADol (Ultram) tablet 50 mg, 50 mg, Oral, q6h PRN OR traMADol (Ultram) tablet 100 mg, 100 mg, Oral, q6h PRN, Alice Smith MD Allergies: Patient has no known allergies. Social History: Social History Socioeconomic History Marital status: Spouse name: Not on file Number of children: Not on file Years of education: Not on file Highest education level: Not on file Occupational History Not on file Tobacco Use Smoking status: Every Day Packs/day: 0.25 Years: 40.00 Pack years: 10.00 Types: Cigarettes Start date: 1972 Smokeless tobacco: Never Tobacco comments: 8 cig daily Substance and Sexual Activity Alcohol use: Yes Alcohol/week: 7.0 standard drinks Types: 7 Cans of beer per week Comment: once beer daily Drug use: Never Sexual activity: Not on file Other Topics Concern Not on file Social History Narrative Not on file Social Determinants of Health Financial Resource Strain: Not on file Food Insecurity: Not on file Transportation Needs: Not on file Physical Activity: Not on file Stress: Not on file Social Connections: Not on file Intimate Partner Violence: Not on file Housing Stability: Not on file Family History: Family History Problem Relation Name Age of Onset Asthma Father defects Father Cancer Father Asthma Sister Heart disease Mother Heart disease Brother Pacemaker Mother defects Sister Cancer Mother Diabetes Mother Further Family History is noncontributory to this injury. REVIEW OF SYSTEMS: Review of Systems - General ROS: negative for - chills, fatigue, fever, malaise or night sweats Psychological ROS: negative Ophthalmic ROS: negative ENT ROS: negative for - headaches or sore throat Hematological and Lymphatic ROS: negative for - bleeding problems or blood clots Respiratory ROS: no cough, shortness of breath, or wheezing Cardiovascular ROS: no chest pain or dyspnea on exertion Gastrointestinal ROS: negative Musculoskeletal ROS: See HPI Neurological ROS: negative for - bowel and bladder control changes, gait disturbance or numbness/tingling All other systems reviewed and are negative PHYSICAL EXAM: BP 116/60 Pulse 81 Temp 36.8 C (98.2 F) (Oral) Resp 17 Ht 1.753 m (5' 9") Wt 82.8 kg (182 lb 8 oz) SpO2 99% BMI 26.95 kg/m GENERAL APPEARANCE: Awake and oriented x3. No acute distress, except appropriate to injury. MOOD AND AFFECT: Calm appropriate to situation GAIT AND STATION: Patient is in bed and unable to ambulate secondary to known injury. REFLEXES: No clonus or Babinski. COORDINATION and BALANCE: Patient is grossly coordinated unable to ambulate secondary to known injury. Lymphadenopathy: none on examination of the affected extremity(s) Left Upper Extremity: -No obvious pain or deformity to inspection with normal joint range of motion, stability, and muscle strength except noted below -No TTP over clavicle, elbow, forearm, wrist, hand, or fingers -TTP: Shoulder -Radial pulse palpable -SILT in axillary/radial/median/ ulnar nerve distributions -Motor + AIN/PIN/ulnar nerve functions -No Lymphedema -Skin intact except where noted below -Painless pROM at elbow/wrist Ecchymosis about the shoulder and arm. Compartments soft and compressible. TTP about the shoulder. +AIN/PIN/Ulnar motor function. Palpable radial pulse. Right Upper Extremity: -No obvious pain or deformity to inspection with normal joint range of motion, stability, and muscle strength except noted below -No TTP over clavicle, shoulder, humerus, elbow, forearm, wrist, hand, or fingers -TTP: nontender throughout extremity -Radial pulse palpable -SILT in radial/median/ ulnar nerve distributions -Motor + AIN/PIN/ulnar nerve functions -No Lymphedema -Skin intact except where noted below -Painless pROM at shoulder/elbow/wrist Atraumatic Right Lower Extremity: -No obvious pain or deformity to inspection with normal joint range of motion, stability, and muscle strength except noted below -No TTP over pelvis, hip, thigh, knee, tibia, lateral mal, medial mal, calc, midfoot, forefoot -TTP: Nontender throughout extremity -Pulse: DP Palpable -SILT in the superficial peroneal, deep peroneal, tibial, sural, saphenous nerve distributions -Motor function of tibialis anterior, extensor hallucis longus, and gactrocsoleus complex intact -No Lymphedema -Skin intact except where noted below -Painless pROM at hip/knee/ankle Atraumatic Left Lower Extremity: -No obvious pain or deformity to inspection with normal joint range of motion, stability, and muscle strength except noted below -No TTP over pelvis, hip, thigh, knee, tibia, lateral mal, medial mal, calc, midfoot, forefoot -TTP: Nontender throughout extremity -Pulse: DP Palpable -SILT in the superficial peroneal, deep peroneal, tibial, sural, saphenous nerve distributions -Motor function of tibialis anterior, extensor hallucis longus, and gactrocsoleus complex intact -No Lymphedema -Skin intact except where noted below -Painless pROM at hip/knee/ankle Atraumatic Labs: CBC: Lab Results Component Value Date WBC 14.9 (H) 12/29/2022 RBC 3.28 (L) 12/29/2022 BMP: Lab Results Component Value Date GLUCOSE 174 (H) 12/29/2022 CO2 34 (H) 12/29/2022 BUN 22 (H) 12/29/2022 CREATININE 0.69 12/29/2022 CALCIUM 8.8 12/29/2022 PT/INR: No results found for: PT, INR, APTT Type and Screen: No results found for: RH, LABANTI CRP: No results found for: CRP ESR: No results found for: SEDRATE HgBA1c: No components found for: LABA1C The above labs were reviewed by me. Radiology: The below images were independently reviewed and interpreted XR: Left shoulder: Valgus impacted proximal humerus fx. Glenohumeral joint is reduced. Subluxation of the humeral head 2/2 joint hemarthrosis. No other fx visualized. AC joint arthritis. Left ankle: No acute fracture or dislocation. Previous malunion of the distal fibula. Pelvis: No acute fracture or dislocation. CT C Spine: No acute fracture or dislocation. Limited 2/2 motion artifact. Radiology report reviewed. ASSESSMENT: 67 y.o. male with left proximal humerus fx PLAN: -Will d/w Dr Holden -No acute surgical intervention -NWB LUE, otherwise activity as tolerated -Keep left arm in a sling for comfort and immobilization. Come out of the sling multiple times daily and move the elbow, wrist, and fingers to prevent stiffness. -Ice -Neurovascular checks -Skin checks -F/u OP with Dr Duran -Orthopaedic surgery will sign off. Please page supervisor ski production orthopaedic resident for questions or concerns. Debra De Leon MD Orthopaedic Surgery, PGY-4 [phone] documented in this encounter [facility] 12-31-2022 Note Formatting of this n ote might be different from the original. SW consult for discharge planning. Addiction medicine consulted and following. Patient has not had alcohol in over 24 hours prior to admission. No signs of symptoms of alcohol withdrawal, per chart. Weekend TCC completed initial case management assessment. Discharge plan pending. PT/OT pending. Ortho consulted. SW to follow for any other additional discharge needs. [facility] 12-30-2022 Note Formatting of this n ote might be different from the original. Machine Precision Etcher following case for Discharge Needs. [facility] 12-30-2022 Note Formatting of this n ote might be different from the original. Care Managment Initial Assessment Date: 12/30/2022 Patient Name: Krystina Markham : 1955 Patient Information Source of Information: Patient Name/Contact Information: MELODIE WORTHINGTON EX [phone] Cognition/Language: WFL - Within Functional Limits Permission given to speak with patient outbound call center representative/caregiver as indicated: Yes Confirmation of Payer with patient/family: Yes Payer Name: MEDICARE [place]: No Confirmation of Primary Care Physician: Confirmed PCP Name: [facility]ILY PRACTICE Seen in last 2 years?: Yes Primary Caregiver: Self If assistance needed, confirmed caregiver ready, willing and able to care for patient at discharge: Confirmed with: Living Arrangements Current Residence: Apartment Number of Floors 1 Number of Entry Steps: 2 Bed/Bath Levels: Both first floor Facility: Facility Name: NA Plan to Return: Yes Lives with: Friends (lives with a "pedro luis") Support Systems: Friends/neighbors (ex , pedro luis) Activities of Daily Living Ambulation: Independent Bathing/Dressing: Independent Elimination/Continence/Toileting: Independent Feeding: Independent Who Assists with Activities of Daily Living: na Instrumental Activities of Daily Living Prescription Coverage: Yes Pharmacy Used: [facility] in [place] Medication Management: Independent Transportation/Shopping: Independent Transportation Mode: Car Needs Assistance with Transportation at Discharge: No (ex Melodie) Meal Preparation: Independent Laundry/Cleaning: Independent Finances/Bill Paying: Independent Communication: Independent Types of Care Services/Equipment Utilized Care Services: Dialysis Type: NA Durable Medical Equipment: Nebulizer Patient's Goal/Discharge Plan Patient expects to be discharged to: home Discharge Planning Actions: Continue to follow Patient's Choice Rights and [employer] and Collaborative Relationships Disclosed as Indicated for Post-Acute Care: NA Interdisciplinary Team Engagement: Home Health Care, PT/OT Social Work Referral for: Additional Information: Inpatient status from home with hyponatremia. Sodium was 115 upon arrival to Er. Per documentation patient drinks about a 12 pack of beer per day. Has left humeral fracture related to fall on 12/26. History of chf with EF of 25%. Ortho evaluated humeral fracture and no acute surgical intervention and have signed off. Initially admitted to ICU and will be transferred to medical floor later today. Addiction med consulted, pt/ot, daily labs, ciwa protocol, iiv fluids. Sodium this morning is 121. Discharge preparation checklist reviewed with patient. Lives at home with a pedro luis. States is independent in his adls. Denies home oxygen use. Currently requiring 2 liters with 91% saturation. Has nebulizer at home, but states needs medications for it. Did message [facility] and updated them of this. Will need to monitor pt/ot evals and oxygen needs. Tentative discharge plan is home vs home with hhc vs snf. 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 Patricia Chase RN T [facility] 12-29-2022 Consult note Associated Order (s): IP CONSULT TO ORTHOPAEDIC SURGERY Ortho Consult Patient: Krystina Markham Date of : 1955 Acct: [id number] PCP: JAMIA SIERRA MD Date of Admission: 12/29/2022 Date of Service: Pt seen/examined on 12/29/2022 Chief Complaint: Left shoulder pain History Of Present Illness: 67 y.o. male who presents with left shoulder pain after a fall from standing on 12/26. He initially presented to the ED and was discharged home. He reports having continued pain to the shoulder which is why he returned to the ED. He denies any new falls or injuries. Denies pain to other extremities. Denies neck and back pain. Denies numbness/tingling in extremities. Denies head trauma & loss of consciousness. Pertinent PMH HF w/ ICD, COPD, HTN. Patient has Hx of EtOH use. Patient ambulation status: no difficulty. Antiplatelets/Anticoagulation includes: Eliquis . Hx from chart and/or Pt. Past Medical History: Past Medical History: Diagnosis Date Alcohol consumption heavy 09/10/2015 Asthma Atrial fibrillation (CMS/HCC) ([facility]) CHF (congestive heart failure) (CMS/HCC) ([facility]) 01/31/2016 COPD (chronic obstructive pulmonary disease) ([facility]) 09/10/2015 Cor, pulmonale, acute (CMS/HCC) (HCC) Deep venous thrombosis (HCC) 02/2016 Depression Hx of blood clots Obesity 09/10/2015 DELORES (obstructive sleep apnea) Pulmonary embolus (HCC) 6 16 Raynaud phenomenon 09/10/2015 Smoker 09/10/2015 Past Surgical History: Past Surgical History: Procedure Laterality Date ABDOMINAL SURGERY BRONCHOSCOPY 02/25/2020 BRONCHOSCOPY (HISTORICAL) 02/25/2020 COLONOSCOPY 10/27/[address] CHEST ANGIOGRAM W AND/OR WO IV CONTRAST 07/12/2022 CT CHEST ANGIOGRAM W AND/OR WO IV CONTRAST 07/12/2022 [facility] CT IMAGING FINGER AMPUTATION Left HERNIA REPAIR NOSE SURGERY Home Medications: Prior to Admission medications Medication Sig Start Date End Date Taking? Authorizing Provider albuterol (2.5 MG/3ML) 0.083% nebulizer solution Take 3 mL (2.5 mg) by nebulization as needed for wheezing or shortness of breath. 09/14/22 12/13/22 Harman Thompson MD albuterol 108 (90 Base) MCG/ACT inhaler INHALE 2 PUFFS EVERY 6 HOURS NEEDED FOR WHEEZING OR SHORTNESS OF BREATH. 08/21/22 09/20/22 Jose M Wgigins MD [facility] B-1 100 MG tablet TAKE 1 TABLET BY MOUTH EVERY DAY 11/29/22 Jamia Sierra MD Eliquis 5 MG tablet Take 1 tablet (5 mg) by mouth 2 times daily. 09/21/22 12/20/22 Jamia Sierra MD ergocalciferol (Vitamin D2) 1.25 MG (92345 UT) capsule TAKE 1 CAPSULE BY MOUTH ONCE WEEKLY *DO NOT START BEFORE JUL 25 12/21/22 Jamia Sierra MD folic acid (Folvite) 1 MG tablet Take 1 tablet (1 mg) by mouth in the morning. 07/19/22 07/19/23 Lan Villegas MD ipratropium-albuterol (Duo-Neb) 0.5-2.5 mg/3 mL nebulizer solution Take 3 mL by nebulization 2 times daily as needed for wheezing or shortness of breath. 09/14/22 12/13/22 Harman Thompson MD magnesium oxide (Mag-Ox) 400 MG tablet Take 1 tablet by mouth in the morning. 04/09/22 Historical Provider, metoprolol succinate XL (Toprol-XL) 100 MG 24 hr tablet Take 1 tablet (100 mg) by mouth in the morning and 1 tablet (100 mg) before bedtime. Do not crush or chew.. 07/30/22 10/28/22 Jessenia Crystal APRN - [facility] montelukast (Singulair) 10 MG tablet Take 1 tablet (10 mg) by mouth every evening. 11/20/22 02/18/23 Jamia Sierra MD Multiple Vitamins-Minerals (Therapeutic-M/Lutein) tablet TAKE 1 TABLET BY MOUTH IN THE MORNING, 1 TABLET AT NOON, AND 1 TABLET BEFORE BEDTIME 08/14/22 Jamia Sierra MD oxyCODONE-acetaminophen (Percocet) 5-325 MG tablet Take 1 tablet by mouth every 6 hours as needed for severe pain (7-10) for up to 4 days. 12/26/22 12/30/22 Kalia Foote MD rosuvastatin (Crestor) 40 MG tablet Take 1 tablet (40 mg) by mouth Nightly. 07/30/22 07/30/23 Jessenia Crystal APRN - [place] sacubitril-valsartan (Entresto) 49-51 MG tablet Take 1 tablet by mouth 2 times daily. 09/14/22 12/13/22 Harman Thompson MD sertraline (Zoloft) 100 MG tablet Take 1 tablet (100 mg) by mouth every morning. 11/20/22 02/18/23 Jamia Sierra MD spironolactone (Aldactone) 25 MG tablet Take 1 tablet (25 mg) by mouth Nightly. 07/30/22 Jessenia Crystal APRN - [employer] tiotropium (Spiriva Respimat) 1.25 MCG/ACT inhaler Inhale 2 puffs daily. 09/14/22 Harman Thompson MD torsemide (Demadex) 20 MG tablet Take 20 mg by mouth in the morning and 20 mg before bedtime. 07/09/22 Historical Provider, Current Hospital Medications: Current Facility-Administered Medications: acetaminophen (Tylenol) tablet 1,000 mg, 1,000 mg, Oral, q8h OR Acetaminophen (Tylenol) 650 MG/20.3ML solution 1,000 mg, 1,000 mg, Per G Tube, q8h, Alice Smith MD albuterol 108 (90 Base) MCG/ACT inhaler 2 puff, 2 puff, Inhalation, q6h PRN, Alice Smith MD folic acid (Folvite) tablet 1 mg, 1 mg, Oral, Daily, Alice Smith MD ipratropium-albuterol (Duo-Neb) 0.5-2.5 mg/3 mL nebulizer solution 3 mL, 3 mL, Nebulization, Q4H while awake, Alice Smith MD LORazepam (Ativan) tablet 1 mg, 1 mg, Oral, q1h PRN OR LORazepam (Ativan) injection 1 mg, 1 mg, IntraVENous, q1h PRN OR LORazepam (Ativan) tablet 1 mg, 1 mg, Oral, q1h PRN OR LORazepam (Ativan) injection 2 mg, 2 mg, IntraVENous, q1h PRN OR LORazepam (Ativan) tablet 2 mg, 2 mg, Oral, q1h PRN OR LORazepam (Ativan) injection 2 mg, 2 mg, IntraVENous, q1h PRN OR LORazepam (Ativan) tablet 2 mg, 2 mg, Oral, q1h PRN OR LORazepam (Ativan) injection 4 mg, 4 mg, IntraVENous, q1h PRN, Alice Smith MD magnesium sulfate IVPB premix 2,000 mg, 2,000 mg, IntraVENous, PRN OR magnesium sulfate IVPB 4,000 mg, 4,000 mg, IntraVENous, PRN, Alice Smith MD metoprolol succinate XL (Toprol-XL) 24 hr tablet 100 mg, 100 mg, Oral, BID, Alice Smith MD montelukast (Singulair) tablet 10 mg, 10 mg, Oral, qPM, Alice Smith MD nicotine (Nicoderm, Step 1) 21 MG/24HR patch 1 patch, 1 patch, TransDERmal, Daily FOLLOWED BY [START ON 02/09/2023] nicotine (Nicoderm, Step 2) 14 MG/24HR patch 1 patch, 1 patch, TransDERmal, Daily FOLLOWED BY [START ON 02/23/2023] nicotine (Nicoderm, Step 3) 7 MG/24HR patch 1 patch, 1 patch, TransDERmal, Daily, Alice Smith MD ondansetron ODT (Zofran-ODT) disintegrating tablet 4 mg, 4 mg, Oral, q8h PRN OR ondansetron (Zofran) injection 4 mg, 4 mg, IntraVENous, q6h PRN, Alice Smith MD [START ON 12/30/2022] pantoprazole (ProtoNix) EC tablet 40 mg, 40 mg, Oral, q AM, Alice Smith MD polyethylene glycol (PEG) 3350 (Miralax) packet 17 g, 17 g, Oral, Daily PRN, Alice Smith MD potassium chloride CR (Klor-Con M20) ER tablet 40 mEq, 40 mEq, Oral, PRN OR potassium chloride (Klor-Con) packet 40 mEq, 40 mEq, Oral, PRN OR potassium chloride 40 mEq in sodium chloride 0.9 % 500 mL IVPB, 40 mEq, IntraVENous, PRN, Alice Smith MD rosuvastatin (Crestor) tablet 40 mg, 40 mg, Oral, Nightly, Alice Smith MD sacubitril-valsartan (Entresto) 49-51 MG per tablet 1 tablet, 1 tablet, Oral, BID, Alice Smith MD [START ON 12/30/2022] sertraline (Zoloft) tablet 100 mg, 100 mg, Oral, q AM, Alice Smith MD sodium chloride 0.9 % infusion, 100 mL/hr, IntraVENous, Continuous, KLAUDIA May, Last Rate: 100 mL/hr at 12/29/22 1705, 100 mL/hr at 12/29/22 170 sodium chloride 0.9 % infusion, 100 mL/hr, IntraVENous, Continuous, Alice Smith MD sodium phosphates 10 mmol in dextrose 5 % 250 mL IVPB, 10 mmol, IntraVENous, PRN OR sodium phosphates 15 mmol in dextrose 5 % 250 mL IVPB, 15 mmol, IntraVENous, PRN OR sodium phosphates 20 mmol in sodium chloride 0.9 % 500 mL IVPB, 20 mmol, IntraVENous, PRN, Alice Smith MD spironolactone (Aldactone) tablet 25 mg, 25 mg, Oral, Nightly, Alice Smith MD therapeutic multivitamin-minerals (Theragran-M) tablet, 1 tablet, Oral, Daily, Alice Smith MD Thiamine Mononitrate (Vitamin B1) tablet 100 mg, 100 mg, Oral, Daily, Alice Smith MD traMADol (Ultram) tablet 50 mg, 50 mg, Oral, q6h PRN OR traMADol (Ultram) tablet 100 mg, 100 mg, Oral, q6h PRN, Alice Smith MD Allergies: Patient has no known allergies. Social History: Social History Socioeconomic History Marital status: Spouse name: Not on file Number of children: Not on file Years of education: Not on file Highest education level: Not on file Occupational History Not on file Tobacco Use Smoking status: Every Day Packs/day: 0.25 Years: 40.00 Pack years: 10.00 Types: Cigarettes Start date: 1972 Smokeless tobacco: Never Tobacco comments: 8 cig daily Substance and Sexual Activity Alcohol use: Yes Alcohol/week: 7.0 standard drinks Types: 7 Cans of beer per week Comment: once beer daily Drug use: Never Sexual activity: Not on file Other Topics Concern Not on file Social History Narrative Not on file Social Determinants of Health Financial Resource Strain: Not on file Food Insecurity: Not on file Transportation Needs: Not on file Physical Activity: Not on file Stress: Not on file Social Connections: Not on file Intimate Partner Violence: Not on file Housing Stability: Not on file Family History: Family History Problem Relation Name Age of Onset Asthma Father defects Father Cancer Father Asthma Sister Heart disease Mother Heart disease Brother Pacemaker Mother defects Sister Cancer Mother Diabetes Mother Further Family History is noncontributory to this injury. REVIEW OF SYSTEMS: Review of Systems - General ROS: negative for - chills, fatigue, fever, malaise or night sweats Psychological ROS: negative Ophthalmic ROS: negative ENT ROS: negative for - headaches or sore throat Hematological and Lymphatic ROS: negative for - bleeding problems or blood clots Respiratory ROS: no cough, shortness of breath, or wheezing Cardiovascular ROS: no chest pain or dyspnea on exertion Gastrointestinal ROS: negative Musculoskeletal ROS: See HPI Neurological ROS: negative for - bowel and bladder control changes, gait disturbance or numbness/tingling All other systems reviewed and are negative PHYSICAL EXAM: BP 116/60 Pulse 81 Temp 36.8 C (98.2 F) (Oral) Resp 17 Ht 1.753 m (5' 9") Wt 82.8 kg (182 lb 8 oz) SpO2 99% BMI 26.95 kg/m GENERAL APPEARANCE: Awake and oriented x3. No acute distress, except appropriate to injury. MOOD AND AFFECT: Calm appropriate to situation GAIT AND STATION: Patient is in bed and unable to ambulate secondary to known injury. REFLEXES: No clonus or Babinski. COORDINATION and BALANCE: Patient is grossly coordinated unable to ambulate secondary to known injury. Lymphadenopathy: none on examination of the affected extremity(s) Left Upper Extremity: -No obvious pain or deformity to inspection with normal joint range of motion, stability, and muscle strength except noted below -No TTP over clavicle, elbow, forearm, wrist, hand, or fingers -TTP: Shoulder -Radial pulse palpable -SILT in axillary/radial/median/ ulnar nerve distributions -Motor + AIN/PIN/ulnar nerve functions -No Lymphedema -Skin intact except where noted below -Painless pROM at elbow/wrist Ecchymosis about the shoulder and arm. Compartments soft and compressible. TTP about the shoulder. +AIN/PIN/Ulnar motor function. Palpable radial pulse. Right Upper Extremity: -No obvious pain or deformity to inspection with normal joint range of motion, stability, and muscle strength except noted below -No TTP over clavicle, shoulder, humerus, elbow, forearm, wrist, hand, or fingers -TTP: nontender throughout extremity -Radial pulse palpable -SILT in radial/median/ ulnar nerve distributions -Motor + AIN/PIN/ulnar nerve functions -No Lymphedema -Skin intact except where noted below -Painless pROM at shoulder/elbow/wrist Atraumatic Right Lower Extremity: -No obvious pain or deformity to inspection with normal joint range of motion, stability, and muscle strength except noted below -No TTP over pelvis, hip, thigh, knee, tibia, lateral mal, medial mal, calc, midfoot, forefoot -TTP: Nontender throughout extremity -Pulse: DP Palpable -SILT in the superficial peroneal, deep peroneal, tibial, sural, saphenous nerve distributions -Motor function of tibialis anterior, extensor hallucis longus, and gactrocsoleus complex intact -No Lymphedema -Skin intact except where noted below -Painless pROM at hip/knee/ankle Atraumatic Left Lower Extremity: -No obvious pain or deformity to inspection with normal joint range of motion, stability, and muscle strength except noted below -No TTP over pelvis, hip, thigh, knee, tibia, lateral mal, medial mal, calc, midfoot, forefoot -TTP: Nontender throughout extremity -Pulse: DP Palpable -SILT in the superficial peroneal, deep peroneal, tibial, sural, saphenous nerve distributions -Motor function of tibialis anterior, extensor hallucis longus, and gactrocsoleus complex intact -No Lymphedema -Skin intact except where noted below -Painless pROM at hip/knee/ankle Atraumatic Labs: CBC: Lab Results Component Value Date WBC 14.9 (H) 12/29/2022 RBC 3.28 (L) 12/29/2022 BMP: Lab Results Component Value Date GLUCOSE 174 (H) 12/29/2022 CO2 34 (H) 12/29/2022 BUN 22 (H) 12/29/2022 CREATININE 0.69 12/29/2022 CALCIUM 8.8 12/29/2022 PT/INR: No results found for: PT, INR, APTT Type and Screen: No results found for: RH, LABANTI CRP: No results found for: CRP ESR: No results found for: SEDRATE HgBA1c: No components found for: LABA1C The above labs were reviewed by me. Radiology: The below images were independently reviewed and interpreted XR: Left shoulder: Valgus impacted proximal humerus fx. Glenohumeral joint is reduced. Subluxation of the humeral head 2/2 joint hemarthrosis. No other fx visualized. AC joint arthritis. Left ankle: No acute fracture or dislocation. Previous malunion of the distal fibula. Pelvis: No acute fracture or dislocation. CT C Spine: No acute fracture or dislocation. Limited 2/2 motion artifact. Radiology report reviewed. ASSESSMENT: 67 y.o. male with left proximal humerus fx PLAN: -Will d/w Dr Holden -No acute surgical intervention -NWB LUE, otherwise activity as tolerated -Keep left arm in a sling for comfort and immobilization. Come out of the sling multiple times daily and move the elbow, wrist, and fingers to prevent stiffness. -Ice -Neurovascular checks -Skin checks -F/u OP with Dr Duran -Orthopaedic surgery will sign off. Please page supervisor ski production orthopaedic resident for questions or concerns. Debra De Leon MD Orthopaedic Surgery, PGY-4 [phone] [employer] Phone: 12-29-2022 Hospital Discharge instructions Gifty Holguin MD - 12/29/2022 6:26 PM EDT Ortho discharge instructions: -Nonweightbearing to left upper extremity. -Wear sling as needed for comfort. -Encourage ROM of fingers, hand, and elbow. -Remove your sling multiple times each day and move your elbow. -Ok for range of motion of the shoulder as tolerated. -Ice to affected area. This will help with pain. -Elevate left upper extremity. This will help with swelling. -Take your medications as prescribed. -Follow-up outpatient with Dr. Duran in 1 week(s). - Recommend fluid restriction and cutting back on alcohol consumption, Addiction Support services information is provided in your discharge paperwork for your reference. - Please have you blood work done prior to your PCP appointment - Please follow up with the DR. Duran for your shoulder injury GENERAL SIGNS AND SYMPTOMS GREEN ZONE: All Clear- Your Symptoms Are Under Control No recurrence of symptoms that led to hospitalization Able to do usual activities No fever No chest pain No shortness of breath This Means You Should: Continue taking your medications as prescribed Continue activity as tolerated Keep all doctor appointments YELLOW ZONE: Caution as Your Health may be Worsening Recurrence of symptoms that led to hospitalization Fever of 100 degrees or higher Increased fatigue or restlessness Intolerant side-effects of medications Uneasy feeling or that something is wrong This Means You Should: Call your doctor for further instructions JAMIA SIERRA MD [phone] RED ZONE: Medical Alert Severe or unrelieved shortness of breath at rest Unrelieved chest pain Confusion or you can't think clearly This Means You Should Call 911 Immediately documented in this encounter [facility] 12-29-2022 History and physical note Images from the original note were not included. Internal Medicine: MICU Initial History and Physical Name: Krystina Markham : 1955(67 y.o.) Date: 12/29/22 Attending: Dr. Smith Subjective: Chief Complaint: Hyponatremia HPI: 67-year-old male with past medical history significant for asthma/COPD, atrial fibrillation on oral anticoagulation history of congestive heart failure alcohol abuse drinks 12 pack of beer a day history of sleep apnea history of pulmonary embolus and DVT obesity brought to the emergency room today after his found him on the ground wound on his head actively bleeding, this had happened last night patient initially refused to come to the emergency room, upon evaluation patient was noted to have a sodium of 115 patient previously had been in the emergency room with left shoulder injury patient currently in the shoulder sling patient denies any headaches denies any chest pain denies any shortness of breath review of systems all 10 systems reviewed only those listed in HPI pertinent Past Medical History: Diagnosis Date Alcohol consumption heavy 09/10/2015 Asthma Atrial fibrillation (CMS/HCC) ([facility]) CHF (congestive heart failure) (CMS/HCC) ([facility]) 01/31/2016 COPD (chronic obstructive pulmonary disease) ([facility]) 09/10/2015 Cor, pulmonale, acute (CMS/HCC) ([facility]) Deep venous thrombosis ([facility]) 02/2016 Depression Hx of blood clots Obesity 09/10/2015 DELORES (obstructive sleep apnea) Pulmonary embolus ([facility]) 6 16 Raynaud phenomenon 09/10/2015 Smoker 09/10/2015 Past Surgical History: Procedure Laterality Date ABDOMINAL SURGERY BRONCHOSCOPY 02/25/2020 BRONCHOSCOPY (HISTORICAL) 02/25/2020 COLONOSCOPY 10/27/[address] CHEST ANGIOGRAM W AND/OR WO IV CONTRAST 07/12/2022 CT CHEST ANGIOGRAM W AND/OR WO IV CONTRAST 07/12/[address] [facility] [address] IMAGING FINGER AMPUTATION Left HERNIA REPAIR NOSE SURGERY Family History Problem Relation Name Age of Onset Asthma Father defects Father Cancer Father Asthma Sister Heart disease Mother Heart disease Brother Pacemaker Mother defects Sister Cancer Mother Diabetes Mother Social History Socioeconomic History Marital status: Spouse name: Not on file Number of children: Not on file Years of education: Not on file Highest education level: Not on file Occupational History Not on file Tobacco Use Smoking status: Every Day Packs/day: 0.25 Years: 40.00 Pack years: 10.00 Types: Cigarettes Start date: 1972 Smokeless tobacco: Never Tobacco comments: 8 cig daily Substance and Sexual Activity Alcohol use: Yes Alcohol/week: 7.0 standard drinks Types: 7 Cans of beer per week Comment: once beer daily Drug use: Never Sexual activity: Not on file Other Topics Concern Not on file Social History Narrative Not on file Social Determinants of Health Financial Resource Strain: Not on file Food Insecurity: Not on file Transportation Needs: Not on file Physical Activity: Not on file Stress: Not on file Social Connections: Not on file Intimate Partner Violence: Not on file Housing Stability: Not on file No Known Allergies Prior to Admission medications Medication Sig Start Date End Date Taking? Authorizing Provider albuterol (2.5 MG/3ML) 0.083% nebulizer solution Take 3 mL (2.5 mg) by nebulization as needed for wheezing or shortness of breath. 09/14/22 12/13/22 Harman Thompson MD albuterol 108 (90 Base) MCG/ACT inhaler INHALE 2 PUFFS EVERY 6 HOURS NEEDED FOR WHEEZING OR SHORTNESS OF BREATH. 08/21/22 09/20/22 Jose M Wiggins MD [facility] 100 MG tablet TAKE 1 TABLET BY MOUTH EVERY DAY 11/29/22 Jamia Sierra MD Eliquis 5 MG tablet Take 1 tablet (5 mg) by mouth 2 times daily. 09/21/22 12/20/22 Jamia Sierra MD ergocalciferol (Vitamin D2) 1.25 MG (66769 UT) capsule TAKE 1 CAPSULE BY MOUTH ONCE WEEKLY *DO NOT START BEFORE JUL 25 12/21/22 Jamia Sierra MD folic acid (Folvite) 1 MG tablet Take 1 tablet (1 mg) by mouth in the morning. 07/19/22 07/19/23 Lan Villegas MD ipratropium-albuterol (Duo-Neb) 0.5-2.5 mg/3 mL nebulizer solution Take 3 mL by nebulization 2 times daily as needed for wheezing or shortness of breath. 09/14/22 12/13/22 Harman Thompson MD magnesium oxide (Mag-Ox) 400 MG tablet Take 1 tablet by mouth in the morning. 04/09/22 Erick Ricardo MD metoprolol succinate XL (Toprol-XL) 100 MG 24 hr tablet Take 1 tablet (100 mg) by mouth in the morning and 1 tablet (100 mg) before bedtime. Do not crush or chew.. 07/30/22 10/28/22 PRIYA Perez CNP montelukast (Singulair) 10 MG tablet Take 1 tablet (10 mg) by mouth every evening. 11/20/22 02/18/23 Jamia Sierra MD Multiple Vitamins-Minerals (Therapeutic-M/Lutein) tablet TAKE 1 TABLET BY MOUTH IN THE MORNING, 1 TABLET AT NOON, AND 1 TABLET BEFORE BEDTIME 08/14/22 Jamia Sierra MD oxyCODONE-acetaminophen (Percocet) 5-325 MG tablet Take 1 tablet by mouth every 6 hours as needed for severe pain (7-10) for up to 4 days. 12/26/22 12/30/22 Kalia Foote MD rosuvastatin (Crestor) 40 MG tablet Take 1 tablet (40 mg) by mouth Nightly. 07/30/22 07/30/23 PRIYA Perez CNP sacubitril-valsartan (Entresto) 49-51 MG tablet Take 1 tablet by mouth 2 times daily. 09/14/22 12/13/22 Harman Thompson MD sertraline (Zoloft) 100 MG tablet Take 1 tablet (100 mg) by mouth every morning. 11/20/22 02/18/23 Jamia Sierra MD spironolactone (Aldactone) 25 MG tablet Take 1 tablet (25 mg) by mouth Nightly. 07/30/22 PRIYA Perez CNP tiotropium (Spiriva Respimat) 1.25 MCG/ACT inhaler Inhale 2 puffs daily. 09/14/22 Harman Thompson MD torsemide (Demadex) 20 MG tablet Take 20 mg by mouth in the morning and 20 mg before bedtime. 07/09/22 Historical Provider, Objective: Oxygen Delivery: VITALS: BP 118/78 Pulse 85 Temp 36.3 C (97.3 F) (Oral) Resp 19 Ht 5' 7" (1.702 m) Wt 195 lb (88.5 kg) SpO2 96% BMI 30.54 kg/m CURRENT PULSE OXIMETRY: SpO2: 96 % Review of Systems Constitutional: General Appearance []WDWN [x]Obese []Cachectic []Thin []Ill Eyes: Inspection of Pupils/Irises Pupils round and react: [x]Yes []No Sclera: []Icteric [x]Non-Icteric Inspection of Conjunctiva/Lids Conjunctiva: []Injected [x]Non-Injected Lids: []Intact [x]Lesion Present ENT/Mouth: External Inspection of ears/nose [] Normal [] Scar/Lesion/Mass Inspection of teeth/lips/gums Dentition: [][place] Teeth []Dentures Lips/Gums: []Intact []Lesion Present Mucosa: [][place] []Moist []Dry Neck: External Appearance Overall Appearance: []Normal []Lesion/Mass/Crepitus Present Trachea midline: [x]Yes []No Thyroid [x]Normal []Enlarged []Tender []Mass []Absent Respiratory: Respiratory effort []Labored [x]Non-Labored [] Mechanically-Ventilated Auscultation []Clear [x]Crackles []Wheezes []Rhonchi Cardiovascular: Auscultation Rate: [x]Regular []Irregular []Tachycardia []Bradycardia Rhythm: []Regular []Irregular Murmur: []Present [x]Absent Extremities Peripheral Edema: []Present []Absent Varicosities: []Present []Absent Gastrointestinal: Abdomen Palpation: []Soft []Firm []Tender []Non-Tender []Distended []Non-distended Mass: []Present []Absent Bowel Sounds: []Present []Absent Hernia: []Present []Absent Liver/Spleen: []Hepatosplenomegaly []Organomegaly Absent Musculoskeletal: Inspection of Digits and Nails Cyanosis: []Present [x]Absent Clubbing: []Present [x]Absent Ischemia: []Present [x]Absent Infection: []Present [x]Absent Extremities MOCTEZUMA Equally: Except ([]RUE []RLE []LUE []LLE) Strength/Tone: Intact and Normal ([]RUE []RLE []LUE []LLE) Skin: Inspection []Normal []Rash [x]Lesion []Ulcer Palpation [x]Warm []Cool []Dry []Clammy []Nodules []Induration []Skin-tightening Cap-Refill: [] <3 sec [] >3 seconds (delayed) Neurologic: GCS EYE: 4 - Opens spontaneously GCS MOTOR: 6 - Obeys commands for movement GCS VERBAL: 4 - Confused Total GCS: 14 [] Sensation grossly intact Psych: Mental Status Alert: []Yes [] No Oriented: []x0 []X1 []X2 []x3 Mood/Affect []Normal []Flat []Agitated []Depressed []Anxious []Calm []Sedated []NAD [facility] within last 24 hours- BMP: Recent Labs 12/29/22 1411 NA 115* K 3.4* CL 77* CO2 34* BUN 22* CREATININE 0.69 CALCIUM 8.8 LFTs: Recent Labs 12/29/22 1411 AST 72* ALT 30 PROT 7.0 ALBUMIN 4.0 BILITOT 1.3 ALKPHOS 112 Glucose: Recent Labs 12/29/22 1411 GLUCOSE 174* Procal: No results for input(s): PROCAL in the last 72 hours. CBC: Recent Labs 12/29/22 1411 WBC 18.3* HGB 12.6* HCT 35.8* PLT 238 MCV 95.6 RDW 13.7 ABGs: No results for input(s): PHART, XZG6GRU, PO2ART, RKJ5ZGA, SO2ART, R2EOAPGP in the last 72 hours. Lactic Acid: No results for input(s): LACTATE in the last 72 hours. INR: No results for input(s): INR in the last 72 hours. Cardiac Injury Profile: Recent Labs 12/29/22 1411 CKTOTAL 448* TROPONINI 0.019 Labs in Last 3 months: Lab Results Component Value Date TSH 2.568 07/16/2022 VITD25 17 (L) 07/17/2022 Microbiology- Urine Cx: No results found for: URINECX Blood Cx: No results found for: BLOODCX Sputum Cx: Lab Results Component Value Date RESPCULT Few normal respiratory elsa. (A) 02/25/2020 RESPCULT Haemophilus influenzae (A) 02/25/2020 RESPCULT 02/25/2020 Many Ampicillin/Penicillin Susceptible (Beta lactamase negative) Gram Stain: Lab Results Component Value Date LABGRAM 02/25/2020 Many polymorphonuclear cells/lpf. Few epithelial cells/lpf. Many gram negative bacilli. Few gram positive cocci in pairs. PNA PCR: Lab Results Component Value Date HUMANMETAPNE Not Detected 09/13/2022 COVID19: No results found for: COVID19 Legionella Ag: No results found for: LEGIONELLAPN Strep Ag: No results for input(s): STREPPNEUMO in the last 72 hours. Imaging- Chest x-ray done today shows mild cardiomegaly left-sided pacemaker no consolidation some chest wall deformity along the right scapula and ribs Left shoulder x-ray, shows a subacute mildly displaced angulated impacted humeral surgical neck fracture with slight inferior pseudo subluxation with joint effusion displacement slightly worsened from comparison X-ray pelvis does not show any acute fractures X-ray left ankle shows lateral malleolar soft tissue swelling no evidence of acute fracture CT cervical spine mild left scalp swelling likely due to laceration no CT evidence of acute intracranial process no acute fractures Assessment and Plan: Hyponatremia, probably related to potomania, patient was given 1 L of IV fluid in the emergency room monitor sodium closely patient has contraction alkalosis looks dehydrated continue with IV fluids Fall with head injury most likely related to alcohol intoxication known history of chronic alcohol use Left humeral fracture related to fall patient seen in the emergency room on 26 December 2022 Paroxysmal atrial fibrillation, patient on apixaban Chronic systolic heart failure with a EF of 25% on echocardiogram done in July 2022 appears to be compensated COPD-continue bronchodilators Pulmonary hypertension probably related to combination of systolic heart failure as well as COPD Smakk Scalp laceration- History of DVT/PE restart apixaban tomorrow Status post AICD Discussed with emergency room physician Active Problems: There are no active Hospital Problems. GI Prophylaxis: Pantoprazole PO DVT Prophylaxis: Already on apixaban BMI Classification: Body mass index is 30.54 kg/m . obesity BMI 30-39.9 Disposition: Admit to ICU Critical Care Time: > 35 minutes Total critical care time caring for this patient with life threatening, unstable organ failure, including direct patient contact, management of life support systems, review of data including imaging and labs, discussions with other team members and physicians, excluding procedures. [facility] 12-29-2022 History and physical note Images from the original note were not included. Internal Medicine: MICU Initial History and Physical Name: Krystina Markham : 1955(67 y.o.) Date: 12/29/22 Attending: Dr. Smith Subjective: Chief Complaint: Hyponatremia HPI: 67-year-old male with past medical history significant for asthma/COPD, atrial fibrillation on oral anticoagulation history of congestive heart failure alcohol abuse drinks 12 pack of beer a day history of sleep apnea history of pulmonary embolus and DVT obesity brought to the emergency room today after his found him on the ground wound on his head actively bleeding, this had happened last night patient initially refused to come to the emergency room, upon evaluation patient was noted to have a sodium of 115 patient previously had been in the emergency room with left shoulder injury patient currently in the shoulder sling patient denies any headaches denies any chest pain denies any shortness of breath review of systems all 10 systems reviewed only those listed in HPI pertinent Past Medical History: Diagnosis Date Alcohol consumption heavy 09/10/2015 Asthma Atrial fibrillation ([facility] ([facility] CHF (congestive heart failure) (CMS/HCC) ([facility]) 01/31/2016 COPD (chronic obstructive pulmonary disease) ([facility]) 09/10/2015 Cor, pulmonale, acute (CMS/HCC) ([facility]) Deep venous thrombosis ([facility]) 02/2016 Depression Hx of blood clots Obesity 09/10/2015 DELORES (obstructive sleep apnea) Pulmonary embolus ([facility]) 6 16 Raynaud phenomenon 09/10/2015 Smoker 09/10/2015 Past Surgical History: Procedure Laterality Date ABDOMINAL SURGERY BRONCHOSCOPY 02/25/2020 BRONCHOSCOPY (HISTORICAL) 02/25/2020 COLONOSCOPY 10/27/[address] CHEST ANGIOGRAM W AND/OR WO IV CONTRAST 07/12/2022 CT CHEST ANGIOGRAM W AND/OR WO IV CONTRAST 07/12/2022 [facility] CT IMAGING FINGER AMPUTATION Left HERNIA REPAIR NOSE SURGERY Family History Problem Relation Name Age of Onset Asthma Father defects Father Cancer Father Asthma Sister Heart disease Mother Heart disease Brother Pacemaker Mother defects Sister Cancer Mother Diabetes Mother Social History Socioeconomic History Marital status: Spouse name: Not on file Number of children: Not on file Years of education: Not on file Highest education level: Not on file Occupational History Not on file Tobacco Use Smoking status: Every Day Packs/day: 0.25 Years: 40.00 Pack years: 10.00 Types: Cigarettes Start date: 1972 Smokeless tobacco: Never Tobacco comments: 8 cig daily Substance and Sexual Activity Alcohol use: Yes Alcohol/week: 7.0 standard drinks Types: 7 Cans of beer per week Comment: once beer daily Drug use: Never Sexual activity: Not on file Other Topics Concern Not on file Social History Narrative Not on file Social Determinants of Health Financial Resource Strain: Not on file Food Insecurity: Not on file Transportation Needs: Not on file Physical Activity: Not on file Stress: Not on file Social Connections: Not on file Intimate Partner Violence: Not on file Housing Stability: Not on file No Known Allergies Prior to Admission medications Medication Sig Start Date End Date Taking? Authorizing Provider albuterol (2.5 MG/3ML) 0.083% nebulizer solution Take 3 mL (2.5 mg) by nebulization as needed for wheezing or shortness of breath. 09/14/22 12/13/22 Harman Thompson MD albuterol 108 (90 Base) MCG/ACT inhaler INHALE 2 PUFFS EVERY 6 HOURS NEEDED FOR WHEEZING OR SHORTNESS OF BREATH. 08/21/22 09/20/22 Jose M Wiggins MD [facility] B[facility] 100 MG tablet TAKE 1 TABLET BY MOUTH EVERY DAY 11/29/22 Jamia Sierra MD Eliquis 5 MG tablet Take 1 tablet (5 mg) by mouth 2 times daily. 09/21/22 12/20/22 Jamia Sierra MD ergocalciferol (Vitamin D2) 1.25 MG (44901 UT) capsule TAKE 1 CAPSULE BY MOUTH ONCE WEEKLY *DO NOT START BEFORE JUL 25 12/21/22 Jamia Sierra MD folic acid (Folvite) 1 MG tablet Take 1 tablet (1 mg) by mouth in the morning. 07/19/22 07/19/23 Lan Villegas MD ipratropium-albuterol (Duo-Neb) 0.5-2.5 mg/3 mL nebulizer solution Take 3 mL by nebulization 2 times daily as needed for wheezing or shortness of breath. 09/14/22 12/13/22 Harman Thompson MD magnesium oxide (Mag-Ox) 400 MG tablet Take 1 tablet by mouth in the morning. 04/09/22 Erick Ricardo MD metoprolol succinate XL (Toprol-XL) 100 MG 24 hr tablet Take 1 tablet (100 mg) by mouth in the morning and 1 tablet (100 mg) before bedtime. Do not crush or chew.. 07/30/22 10/28/22 Jessenia Crystal APRN - [facility] montelukast (Singulair) 10 MG tablet Take 1 tablet (10 mg) by mouth every evening. 11/20/22 02/18/23 Jamia Sierra MD Multiple Vitamins-Minerals (Therapeutic-M/Lutein) tablet TAKE 1 TABLET BY MOUTH IN THE MORNING, 1 TABLET AT NOON, AND 1 TABLET BEFORE BEDTIME 08/14/22 Jamia Sierra MD oxyCODONE-acetaminophen (Percocet) 5-325 MG tablet Take 1 tablet by mouth every 6 hours as needed for severe pain (7-10) for up to 4 days. 12/26/22 12/30/22 Kalia Foote MD rosuvastatin (Crestor) 40 MG tablet Take 1 tablet (40 mg) by mouth Nightly. 07/30/22 07/30/23 Jessenia Crystal APRN - [facility] sacubitril-valsartan (Entresto) 49-51 MG tablet Take 1 tablet by mouth 2 times daily. 09/14/22 12/13/22 Harman Thompson MD sertraline (Zoloft) 100 MG tablet Take 1 tablet (100 mg) by mouth every morning. 11/20/22 02/18/23 Jamia Sierra MD spironolactone (Aldactone) 25 MG tablet Take 1 tablet (25 mg) by mouth Nightly. 07/30/22 Jessenia R Kraynick, [employer] tiotropium (Spiriva Respimat) 1.25 MCG/ACT inhaler Inhale 2 puffs daily. 09/14/22 Harman Thompson MD torsemide (Demadex) 20 MG tablet Take 20 mg by mouth in the morning and 20 mg before bedtime. 07/09/22 Historical ProviderMD Objective: Oxygen Delivery: VITALS: BP 118/78 Pulse 85 Temp 36.3 C (97.3 F) (Oral) Resp 19 Ht 5' 7" (1.702 m) Wt 195 lb (88.5 kg) SpO2 96% BMI 30.54 kg/m CURRENT PULSE OXIMETRY: SpO2: 96 % Review of Systems Constitutional: General Appearance []WDWN [x]Obese []Cachectic []Thin []Ill Eyes: Inspection of Pupils/Irises Pupils round and react: [x]Yes []No Sclera: []Icteric [x]Non-Icteric Inspection of Conjunctiva/Lids Conjunctiva: []Injected [x]Non-Injected Lids: []Intact [x]Lesion Present ENT/Mouth: External Inspection of ears/nose [] Normal [] Scar/Lesion/Mass Inspection of teeth/lips/gums Dentition: [][place] Teeth []Dentures Lips/Gums: []Intact []Lesion Present Mucosa: [][place] []Moist []Dry Neck: External Appearance Overall Appearance: []Normal []Lesion/Mass/Crepitus Present Trachea midline: [x]Yes []No Thyroid [x]Normal []Enlarged []Tender []Mass []Absent Respiratory: Respiratory effort []Labored [x]Non-Labored [] Mechanically-Ventilated Auscultation []Clear [x]Crackles []Wheezes []Rhonchi Cardiovascular: Auscultation Rate: [x]Regular []Irregular []Tachycardia []Bradycardia Rhythm: []Regular []Irregular Murmur: []Present [x]Absent Extremities Peripheral Edema: []Present []Absent Varicosities: []Present []Absent Gastrointestinal: Abdomen Palpation: []Soft []Firm []Tender []Non-Tender []Distended []Non-distended Mass: []Present []Absent Bowel Sounds: []Present []Absent Hernia: []Present []Absent Liver/Spleen: []Hepatosplenomegaly []Organomegaly Absent Musculoskeletal: Inspection of Digits and Nails Cyanosis: []Present [x]Absent Clubbing: []Present [x]Absent Ischemia: []Present [x]Absent Infection: []Present [x]Absent Extremities MOCTEZUMA Equally: Except ([]RUE []RLE []LUE []LLE) Strength/Tone: Intact and Normal ([]RUE []RLE []LUE []LLE) Skin: Inspection []Normal []Rash [x]Lesion []Ulcer Palpation [x]Warm []Cool []Dry []Clammy []Nodules []Induration []Skin-tightening Cap-Refill: [] <3 sec [] >3 seconds (delayed) Neurologic: GCS EYE: 4 - Opens spontaneously GCS MOTOR: 6 - Obeys commands for movement GCS VERBAL: 4 - Confused Total GCS: 14 [] Sensation grossly intact Psych: Mental Status Alert: []Yes [] No Oriented: []x0 []X1 []X2 []x3 Mood/Affect []Normal []Flat []Agitated []Depressed []Anxious []Calm []Sedated [][facility]D [facility] within last 24 hours- BMP: Recent Labs 12/29/22 1411 NA 115* K 3.4* CL 77* CO2 34* BUN 22* CREATININE 0.69 CALCIUM 8.8 LFTs: Recent Labs 12/29/22 1411 AST 72* ALT 30 PROT 7.0 ALBUMIN 4.0 BILITOT 1.3 ALKPHOS 112 Glucose: Recent Labs 12/29/22 1411 GLUCOSE 174* Procal: No results for input(s): PROCAL in the last 72 hours. CBC: Recent Labs 12/29/22 1411 WBC 18.3* HGB 12.6* HCT 35.8* PLT 238 MCV 95.6 RDW 13.7 ABGs: No results for input(s): PHART, KHM8POR, PO2ART, RKB5DVL, SO2ART, U1IEVILY in the last 72 hours. Lactic Acid: No results for input(s): LACTATE in the last 72 hours. INR: No results for input(s): INR in the last 72 hours. Cardiac Injury Profile: Recent Labs 12/29/22 1411 CKTOTAL 448* TROPONINI 0.019 Labs in Last 3 months: Lab Results Component Value Date TSH 2.568 07/16/2022 VITD25 17 (L) 07/17/2022 Microbiology- Urine Cx: No results found for: URINECX Blood Cx: No results found for: BLOODCX Sputum Cx: Lab Results Component Value Date RESPCULT Few normal respiratory elsa. (A) 02/25/2020 RESPCULT Haemophilus influenzae (A) 02/25/2020 RESPCULT 02/25/2020 Many Ampicillin/Penicillin Susceptible (Beta lactamase negative) Gram Stain: Lab Results Component Value Date LABGRAM 02/25/2020 Many polymorphonuclear cells/lpf. Few epithelial cells/lpf. Many gram negative bacilli. Few gram positive cocci in pairs. PNA PCR: Lab Results Component Value Date HUMANMETAPNE Not Detected 09/13/2022 COVID19: No results found for: COVID19 Legionella Ag: No results found for: LEGIONELLAPN Strep Ag: No results for input(s): STREPPNEUMO in the last 72 hours. Imaging- Chest x-ray done today shows mild cardiomegaly left-sided pacemaker no consolidation some chest wall deformity along the right scapula and ribs Left shoulder x-ray, shows a subacute mildly displaced angulated impacted humeral surgical neck fracture with slight inferior pseudo subluxation with joint effusion displacement slightly worsened from comparison X-ray pelvis does not show any acute fractures X-ray left ankle shows lateral malleolar soft tissue swelling no evidence of acute fracture CT cervical spine mild left scalp swelling likely due to laceration no CT evidence of acute intracranial process no acute fractures Assessment and Plan: Hyponatremia, probably related to potomania, patient was given 1 L of IV fluid in the emergency room monitor sodium closely patient has contraction alkalosis looks dehydrated continue with IV fluids Fall with head injury most likely related to alcohol intoxication known history of chronic alcohol use Left humeral fracture related to fall patient seen in the emergency room on 26 December 2022 Paroxysmal atrial fibrillation, patient on apixaban Chronic systolic heart failure with a EF of 25% on echocardiogram done in July 2022 appears to be compensated COPD-continue bronchodilators Pulmonary hypertension probably related to combination of systolic heart failure as well as COPD Smakk Scalp laceration- History of DVT/PE restart apixaban tomorrow Status post AICD Discussed with emergency room physician Active Problems: There are no active Hospital Problems. GI Prophylaxis: Pantoprazole PO DVT Prophylaxis: Already on apixaban BMI Classification: Body mass index is 30.54 kg/m . obesity BMI 30-39.9 Disposition: Admit to ICU Critical Care Time: > 35 minutes Total critical care time caring for this patient with life threatening, unstable organ failure, including direct patient contact, management of life support systems, review of data including imaging and labs, discussions with other team members and physicians, excluding procedures. documented in this encounter [facility] 12-29-2022 Emergency department Note Guided ex back NADIYA Mishra 12/29/22 1607 [facility] 12-29-2022 Emergency department Note Guided ex back NADIYA Mishra 12/29/22 1607 [facility] at [facility] time, placed on will call for potential trauma transport to [facility]. Karla Holt RN 12/29/22 1423 Associated Order(s): Laceration Repair; Laceration Repair Images from the original note were not included. EMERGENCY DEPARTMENT ENCOUNTER Pt Name: Krystina Markham Birthdate 1955 Date of evaluation: 12/29/2022 ED Provider: KLAUDIA May EDcare was supervised by Dr. Balderas who independently examined and evaluated the patient. Please see their attestation note for further details. CHIEF COMPLAINT Chief Complaint Patient presents with Head Injury HISTORY OF PRESENT ILLNESS (Location/Symptom, Timing/Onset, Context/Setting, Quality, Duration, Modifying Factors, Severity) Note limiting factors. I wore appropriate PPE for the entirety of this encounter. HPI Krystina Markham is a 67 y.o. male who presents to the emergency department with concern for head injury. Patient was found on the ground at his home yesterday by his ex- after falling, with a wound on his head and actively bleeding, ex- at bedside states that patient had defecated on himself, she got him into the shower to clean him up and patient refused to come to the emergency department, he was soaking through multiple bandages on his head, was recently in the emergency department for a left shoulder fracture. Patient is an alcoholic, as well as on Eliquis. Patient has become more confused is alert and oriented to self and place. Was immediately brought back to room 20 where patient was urgently evaluated. Nursing Notes were reviewed. Limitations to history: Outside historians: REVIEW OF SYSTEMS Review of Systems PAST MEDICAL HISTORY Past Medical History: Diagnosis Date Alcohol consumption heavy 09/10/2015 Asthma Atrial fibrillation ([facility]) ([facility]) CHF (congestive heart failure) ([facility]) ([facility]) 01/31/2016 COPD (chronic obstructive pulmonary disease) ([facility]) 09/10/2015 Cor, pulmonale, acute ([facility]) ([facility] [facility]) Deep venous thrombosis ([facility]) 02/2016 Depression Hx of blood clots Obesity 09/10/2015 DELORES (obstructive sleep apnea) Pulmonary embolus ([facility]) 6 16 Raynaud phenomenon 09/10/2015 Smoker 09/10/2015 SURGICAL HISTORY Past Surgical History: Procedure Laterality Date ABDOMINAL SURGERY BRONCHOSCOPY 02/25/2020 BRONCHOSCOPY (HISTORICAL) 02/25/2020 COLONOSCOPY 10/27/[address] CHEST ANGIOGRAM W AND/OR WO IV CONTRAST 07/12/2022 CT CHEST ANGIOGRAM W AND/OR WO IV CONTRAST 07/12/2022 [facility] CT IMAGING FINGER AMPUTATION Left HERNIA REPAIR NOSE SURGERY CURRENT MEDICATIONS Current Discharge Medication List CONTINUE these medications which have NOT CHANGED Details albuterol (2.5 MG/3ML) 0.083% nebulizer solution Take 3 mL (2.5 mg) by nebulization as needed for wheezing or shortness of breath. Qty: 75 mL, Refills: 2 albuterol 108 (90 Base) MCG/ACT inhaler INHALE 2 PUFFS EVERY 6 HOURS NEEDED FOR WHEEZING OR SHORTNESS OF BREATH. Qty: 18 each, Refills: 2 Associated Diagnoses: Chronic bronchitis, unspecified chronic bronchitis type ([facility]) CVS B-1 100 MG tablet TAKE 1 TABLET BY MOUTH EVERY DAY Qty: 90 tablet, Refills: 1 Comments: NEEDS A NEW PRESCRIPTION Eliquis 5 MG tablet Take 1 tablet (5 mg) by mouth 2 times daily. Qty: 60 tablet, Refills: 2 Associated Diagnoses: Paroxysmal atrial fibrillation (CMS/[facility]) ([facility]) ergocalciferol (Vitamin D2) 1.25 MG (36615 UT) capsule TAKE 1 CAPSULE BY MOUTH ONCE WEEKLY *DO NOT START BEFORE JUL 25 Qty: 3 capsule, Refills: 0 folic acid (Folvite) 1 MG tablet Take 1 tablet (1 mg) by mouth in the morning. Qty: 30 tablet, Refills: 11 ipratropium-albuterol (Duo-Neb) 0.5-2.5 mg/3 mL nebulizer solution Take 3 mL by nebulization 2 times daily as needed for wheezing or shortness of breath. Qty: 1080 mL, Refills: 0 magnesium oxide (Mag-Ox) 400 MG tablet Take 1 tablet by mouth in the morning. metoprolol succinate XL (Toprol-XL) 100 MG 24 hr tablet Take 1 tablet (100 mg) by mouth in the morning and 1 tablet (100 mg) before bedtime. Do not crush or chew.. Qty: 180 tablet, Refills: 1 Associated Diagnoses: HFrEF (heart failure with reduced ejection fraction) (CMS/[facility]) ([facility]) montelukast (Singulair) 10 MG tablet Take 1 tablet (10 mg) by mouth every evening. Qty: 90 tablet, Refills: 0 Associated Diagnoses: Chronic bronchitis, unspecified chronic bronchitis type ([facility]) Multiple Vitamins-Minerals (Therapeutic-M/Lutein) tablet TAKE 1 TABLET BY MOUTH IN THE MORNING, 1 TABLET AT NOON, AND 1 TABLET BEFORE BEDTIME Qty: 90 tablet, Refills: 11 oxyCODONE-acetaminophen (Percocet) 5-325 MG tablet Take 1 tablet by mouth every 6 hours as needed for severe pain (7-10) for up to 4 days. Qty: 12 tablet, Refills: 0 Associated Diagnoses: Other closed displaced fracture of proximal end of left humerus, initial encounter rosuvastatin (Crestor) 40 MG tablet Take 1 tablet (40 mg) by mouth Nightly. Qty: 90 tablet, Refills: 1 Associated Diagnoses: HFrEF (heart failure with reduced ejection fraction) ([facility]) ([facility]) sacubitril-valsartan (Entresto) 49-51 MG tablet Take 1 tablet by mouth 2 times daily. Qty: 180 tablet, Refills: 0 sertraline (Zoloft) 100 MG tablet Take 1 tablet (100 mg) by mouth every morning. Qty: 90 tablet, Refills: 0 Associated Diagnoses: Current moderate episode of major depressive disorder without prior episode ([facility]) spironolactone (Aldactone) 25 MG tablet Take 1 tablet (25 mg) by mouth Nightly. Qty: 90 tablet, Refills: 1 Associated Diagnoses: HFrEF (heart failure with reduced ejection fraction) (CMS/[facility]) ([facility]) tiotropium (Spiriva Respimat) 1.25 MCG/ACT inhaler Inhale 2 puffs daily. Qty: 4 g, Refills: 2 torsemide (Demadex) 20 MG tablet Take 20 mg by mouth in the morning and 20 mg before bedtime. ALLERGIES Patient has no known allergies. FAMILY HISTORY Family History Problem Relation Name Age of Onset Asthma Father defects Father Cancer Father Asthma Sister Heart disease Mother Heart disease Brother Pacemaker Mother defects Sister Cancer Mother Diabetes Mother SOCIAL HISTORY Social History Socioeconomic History Marital status: Tobacco Use Smoking status: Every Day Packs/day: 0.25 Years: 40.00 Pack years: 10.00 Types: Cigarettes Start date: 1972 Smokeless tobacco: Never Tobacco comments: 8 cig daily Substance and Sexual Activity Alcohol use: Yes Alcohol/week: 7.0 standard drinks Types: 7 Cans of beer per week Comment: once beer daily Drug use: Never SCREENINGS Earl Coma Scale Best Eye Response: Spontaneous Best Verbal Response: Confused Best Motor Response: Follows commands [place] Coma Scale Score: 14 PHYSICAL EXAM ED Triage Vitals [12/29/22 1350] Temp Heart Rate Resp BP 36.3 C (97.3 F) 82 24 132/83 SpO2 Temp Source Heart Rate Source Patient Position 90 % Oral Monitor Lying BP Location FiO2 (%) Right arm -- Physical Exam Vitals and nursing note reviewed. Constitutional: General: He is not in acute distress. Appearance: He is well-developed. HENT: Head: Normocephalic. Laceration present. No abrasion or contusion. Comments: There is a small, 2 separate 3 mm lacerations present in the left parietal frontal region. Actively oozing. Significant amount of matted blood in patient's hair. Right Ear: Tympanic membrane normal. Left Ear: Tympanic membrane normal. Eyes: Conjunctiva/sclera: Conjunctivae normal. Cardiovascular: Rate and Rhythm: Normal rate and regular rhythm. Heart sounds: No murmur heard. Pulmonary: Effort: Pulmonary effort is normal. No respiratory distress. Breath sounds: Normal breath sounds. Abdominal: Palpations: Abdomen is soft. Tenderness: There is no abdominal tenderness. Musculoskeletal: General: No swelling. Right shoulder: Normal. Left shoulder: Tenderness present. Decreased range of motion. Right upper arm: Normal. Left upper arm: Normal. Right elbow: Normal. Left elbow: Normal. Cervical back: Normal, full passive range of motion without pain and neck supple. No rigidity or tenderness. No spinous process tenderness or muscular tenderness. Normal range of motion. Thoracic back: Normal. Lumbar back: Normal. Right hip: Normal. Left hip: Normal. Right upper leg: Normal. Left upper leg: Normal. Skin: General: Skin is warm and dry. Capillary Refill: Capillary refill takes less than 2 seconds. Neurological: Mental Status: He is alert. He is confused. Psychiatric: Mood and Affect: Mood normal. DIAGNOSTIC RESULTS RADIOLOGY (Per Emergency Physician): Interpretation per the Radiologist below, if available at the time of this note: XR chest 1 view Final Result Impression: 1. Mild cardiomegaly slightly worsened. Left-sided pacemaker. 2. No acute pulmonary process. Report Dictated on Electronically Signed By: Tristen Snider Electronically Signed Date/Time: 12/29/2022 3:22 PM EDT XR shoulder 2+ views left Final Result Impression: 1. Subacute, mildly displaced, angulated and impacted humeral surgical neck fracture with slight inferior pseudosubluxation from joint effusion. Displacement slightly worsened from comparison. Report Dictated on Electronically Signed By: Tristen Snider Electronically Signed Date/Time: 12/29/2022 3:30 PM EDT XR pelvis 1 or 2 views Final Result Impression: No evidence of fracture or subluxation of the pelvis. Osteopenia. Some osteoarthropathy. Report Dictated on Electronically Signed By: Tristen Snider Electronically Signed Date/Time: 12/29/2022 3:24 PM EDT XR ankle 3+ views left Final Result Impression: Lateral malleolar soft tissue swelling. No evidence of acute fracture, subluxation, or other acute abnormality of the left ankle. Osteopenia. Mild osteoarthropathy. Report Dictated on Electronically Signed By: Tristen Snider Electronically Signed Date/Time: 12/29/2022 3:[address] cervical spine wo IV contrast Final Result No CT evidence of an acute intracranial process. Chronic changes as discussed. Mild left scalp swelling, likely due to laceration. No underlying calvarial fracture. No evidence of acute cervical spine fracture within constraints of motion. No traumatic malalignment. Degenerative changes as discussed. Anatomic Variant: None. Assume 7 cervical vertebrae with counting from the craniocervical junction. Report Dictated on Electronically Signed By: Guillermo Boone Electronically Signed Date/Time: 12/29/2022 3:[address] head wo IV contrast Final Result No CT evidence of an acute intracranial process. Chronic changes as discussed. Mild left scalp swelling, likely due to laceration. No underlying calvarial fracture. No evidence of acute cervical spine fracture within constraints of motion. No traumatic malalignment. Degenerative changes as discussed. Anatomic Variant: None. Assume 7 cervical vertebrae with counting from the craniocervical junction. Report Dictated on Electronically Signed By: Guillermo Boone Electronically Signed Date/Time: 12/29/2022 3:05 PM EDT LABS: Labs Reviewed BASIC METABOLIC PANEL - Abnormal Result Value SODIUM 115 (*) POTASSIUM 3.4 (*) CHLORIDE 77 (*) CARBON DIOXIDE 34 (*) UREA NITROGEN 22 (*) CREATININE 0.69 GLUCOSE 174 (*) CALCIUM 8.8 ANION GAP 4 eGFR >90.0 CBC WITH AUTO DIFFERENTIAL - Abnormal Auto WBC 18.3 (*) RBC 3.75 (*) Hemoglobin 12.6 (*) Hematocrit 35.8 (*) MCV 95.6 MCH 33.7 MCHC 35.2 RDW 13.7 Platelets 238 MPV 8.3 nRBC 0.1 Neutrophils Relative 88.9 (*) Lymphocytes Relative 3.1 (*) Monocytes Relative 7.9 Eosinophils Relative 0.0 (*) Basophils Relative 0.1 Neutrophils Absolute 16.2 (*) Lymphocytes Absolute 0.6 (*) Monocytes Absolute 1.4 (*) Eosinophils Absolute 0.0 Basophils Absolute 0.0 HEPATIC FUNCTION PANEL - Abnormal BILIRUBIN, TOTAL 1.3 BILIRUBIN, DIRECT 0.0 ALKALINE PHOSPHATASE 112 AST (SGOT) 72 (*) ALT 30 ALBUMIN 4.0 TOTAL PROTEIN 7.0 CK - Abnormal CK 448 (*) POCT VENOUS BLOOD GAS UNSOLICITED RESULTS - Abnormal pH, Venous 7.460 (*) pCO2, Venous 44.2 pO2, Venous <29.6 (*) TCO2, Venous 32.7 (*) HCO3, Venous 31.4 (*) Base Excess, Venous 6.6 (*) SO2, Venous 51.2 (*) FIO2 2 Narrative: Performed by: Natalie Tenorio [facility], [address] [place] [id number] CLIA ID: [id number] TROPONIN I - Normal TROPONIN I 0.019 Narrative: Patients with high levels of Biotin oral intake (ie >5 mg/day) may have falsely decreased Troponin levels. ETHANOL - Normal ETHANOL IN SER/PLAS <0.010 Narrative: NOTE: This result is for medical treatment only. Analysis performed using non-forensic procedures. BLOOD GAS, VENOUS DRUGS OF ABUSE All other labs were within normal range or not returned as of this dictation. EMERGENCY DEPARTMENT COURSE and DIFFERENTIAL DIAGNOSIS/MDM: Vitals: Vitals: 12/29/22 1401 12/29/22 1409 12/29/22 1559 12/29/22 1641 BP: 121/76 118/78 109/76 BP Location: Patient Position: Lying Pulse: 83 85 77 Resp: 19 19 20 Temp: TempSrc: SpO2: 92% 92% 96% 93% Weight: Height: The patient presented with a chief complaint of confusion, altered mental status and bleeding from the head. Patient's vital signs are normal, was immediately brought back to bed 20 because of his mental status, concern for possible stroke or intracranial bleeding given that he fell and has a bleeding head wound on Eliquis. CT imaging and x-ray imaging were obtained. As well as lab evaluation. Ethanol is negative, CK is 448, troponin is normal, patient is hyponatremic at 115. Patient is leukocytosis of 18. Patient was given 1 L of IV fluids here in the ED. CT head showed no evidence of acute intracranial abnormalities, there is superficial scalp swelling which could be from the laceration. CT cervical spine is normal. X-ray left ankle showed some lateral malleolus soft tissue swelling no evidence of fracture or dislocation. X-ray pelvis shows no evidence of acute fracture or dislocation. X-ray of the left shoulder showed subacute mildly displaced angulated and impacted humeral neck fracture displacement is slightly worsened from previous. Chest x-ray shows mild cardiomegaly and slightly worsened, left-sided pacemaker. After the sutures were placed, bleed improved significantly, no active bleeding on reassessment. Given patient's hyponatremia, ICU was consulted, and they admitted the patient to their service. Patient was admitted in stable condition. Diagnoses as of 12/29/22 174 Hyponatremia ED Medications managed: Medications sodium chloride 0.9 % infusion (100 mL/hr IntraVENous New Bag 12/29/22 1705) sodium chloride 0.9 % bolus 1,000 mL (0 mL IntraVENous Stopped 12/29/22 1556) lidocaine-EPINEPHrine (Xylocaine W/EPI) 1 %-1:655033 injection 5 mL (5 mL Injection Given 12/29/22 1419) Prescription drugs considered: PROCEDURES: Unless otherwise noted below, none Laceration Repair Performed by: KLAUDIA May Authorized by: Gilbert Balderas DO Consent: Consent obtained: Verbal Consent given by: Patient Risks discussed: Infection and pain Alternatives discussed: No treatment Anesthesia: Anesthesia method: Local infiltration Local anesthetic: Lidocaine 1% WITH epi Laceration details: Location: Scalp Scalp location: Frontal Length (cm): 0.6 Depth (mm): 3 Pre-procedure details: Preparation: Patient was prepped and draped in usual sterile fashion Exploration: Limited defect created (wound extended): yes Treatment: Area cleansed with: Saline and Shur-Clens Amount of cleaning: Standard Irrigation solution: Sterile saline Irrigation volume: 200 Irrigation method: Syringe Skin repair: Repair method: Sutures Suture size: 4-0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 provided: Assessment and support for treatment adherence and medication management - Did the patient get his medications filled and are they taking them as instructed from discharge? YES - Patient was encouraged to follow his discharge instructions from his recent hospital stay. YES - Does patient understand their discharge instructions? YES - Instructed patient to bring all medications and inhalers (if applicable) to all [facility] visits. YES Follow Up Future Appointments Date Time Provider Department Center 01/07/2023 8:45 AM Jamia Sierra MD [facility] FAMILY P None 03/06/2023 1:00 PM [facility] LYNDSAY DEVICE RN 1 [facility] CV Lyndsay Alanis Keenan LPN Message released to patient as written. Patient's further questions if applicable: Were all questions from office addressed or relayed to the patient from encounter: Yes, Melodie called back stating she is aware of his apt on . She also states he can use her phone number for contact. LM for Melodie, pt's emergency contact to return call and provide a number for pt. MC message also sent to pt. Left message with patient's emergency contact due to patient not having a phone number listed. Patient needs KISHAN done. Appt is already scheduled. documented in this encounter [facility] 11-07-2022 History of Present illness Narrative EMR reviewed. CM will discharge patient - unable to contact documented in this encounter [facility] 09-28-2022 Telephone encounter Note A cert letter was mailed out on Aug 09, 2022. The card and or env has not been returned as of today. [facility] 09-28-2022 Miscellaneous Notes A cert letter was mailed out on Aug 09, 2022. The card and or env has not been returned as of today. Patients transmitter has not been connected to his device for several months. I did full check in clinic today per Dr. Almaraz. I have given him instructions on how to repair his [place] transmitter and tech support number. I have called his emergency contact, Melodie, and explained on voicemail that his device is not monitoring him currently. Patient states its best to call Melodie because he rarely carries his cell phone. documented in this encounter [facility] 09-21-2022 Telephone encounter Note Refills sent [facility] 09-21-2022 Miscellaneous Notes Refills sent documented in this encounter [facility] 09-19-2022 Telephone encounter Note Patients transmitter has not been connected to his device for several months. I did full check in clinic today per Dr. Almaraz. I have given him instructions on how to repair his Jm transmitter and tech support number. I have called his emergency contact, Melodie, and explained on voicemail that his device is not monitoring him currently. Patient states its best to call Melodie because he rarely carries his cell phone. [facility] 09-19-2022 History of Present illness Narrative [facility] Cardiology Note Visit type: Established : 1955 Chief Complaint: Chief Complaint Patient presents with Follow-up Congestive Heart Failure History of Present Illness: Krystina Markham is a 67 y.o. male who is here in follow-up concerning his history of chronic systolic heart failure, atrial fibrillation, biventricular ICD, COPD and chronic tobacco abuse. He has done well since has been home. He denies chest pain or tightness. He denies significant shortness of breath. He has not had syncope or near syncope. He does not think he has had any defibrillator shocks. Past Medical History: Past Medical History: Diagnosis Date Alcohol consumption heavy 09/10/2015 Asthma Atrial fibrillation (CMS/HCC) ([facility]) CHF (congestive heart failure) (CMS/HCC) ([facility]) 01/31/2016 COPD (chronic obstructive pulmonary disease) ([facility]) 09/10/2015 Cor, pulmonale, acute (CMS/HCC) ([facility]) Deep venous thrombosis ([facility]) 02/2016 Depression Hx of blood clots Obesity 09/10/2015 DELORES (obstructive sleep apnea) Pulmonary embolus (HCC) 6 16 Raynaud phenomenon 09/10/2015 Smoker 09/10/2015 Past Surgical History Past Surgical History: Procedure Laterality Date ABDOMINAL SURGERY BRONCHOSCOPY 02/25/2020 BRONCHOSCOPY (HISTORICAL) 02/25/2020 COLONOSCOPY 10/27/[address] CHEST ANGIOGRAM W AND/OR WO IV CONTRAST 07/12/2022 CT CHEST ANGIOGRAM W AND/OR WO IV CONTRAST 07/12/[address] IMAGING FINGER AMPUTATION Left HERNIA REPAIR NOSE SURGERY Family History Family History Problem Relation Name Age of Onset Asthma Father defects Father Cancer Father Asthma Sister Heart disease Mother Heart disease Brother Pacemaker Mother defects Sister Cancer Mother Diabetes Mother Social History Social History Tobacco Use Smoking status: Every Day Packs/day: 0.25 Years: 40.00 Pack years: 10.00 Types: Cigarettes Start date: 1972 Smokeless tobacco: Never Tobacco comments: 8 cig daily Substance Use Topics Alcohol use: Yes Alcohol/week: 7.0 standard drinks Types: 7 Cans of beer per week Comment: once beer daily Drug use: Never Allergies: No Known Allergies Medications: Current Outpatient Medications: albuterol (2.5 MG/3ML) 0.083% nebulizer solution, Take 3 mL (2.5 mg) by nebulization as needed for wheezing or shortness of breath., Disp: 75 mL, Rfl: 2 albuterol 108 (90 Base) MCG/ACT inhaler, INHALE 2 PUFFS EVERY 6 HOURS NEEDED FOR WHEEZING OR SHORTNESS OF BREATH., Disp: 18 each, Rfl: 2 Eliquis 5 MG tablet, TAKE 1 TABLET BY MOUTH IN THE MORNING AND 1 TABLET BEFORE BEDTIMESTART ON 07/30/22, Disp: 60 tablet, Rfl: 0 ipratropium-albuterol (Duo-Neb) 0.5-2.5 mg/3 mL nebulizer solution, Take 3 mL by nebulization 2 times daily as needed for wheezing or shortness of breath., Disp: 1080 mL, Rfl: 0 CVS B-1 100 MG tablet, Take 100 mg by mouth in the morning., Disp: , Rfl: ergocalciferol (Vitamin D2) 1.25 MG (65700 UT) capsule, TAKE 1 CAPSULE BY MOUTH ONCE WEEKLY *DO NOT START BEFORE JUL 25, Disp: 3 capsule, Rfl: 0 folic acid (Folvite) 1 MG tablet, Take 1 tablet (1 mg) by mouth in the morning., Disp: 30 tablet, Rfl: 11 magnesium oxide (Mag-Ox) 400 MG tablet, Take 1 tablet by mouth in the morning., Disp: , Rfl: metoprolol succinate XL (Toprol-XL) 100 MG 24 hr tablet, Take 1 tablet (100 mg) by mouth in the morning and 1 tablet (100 mg) before bedtime. Do not crush or chew.., Disp: 180 tablet, Rfl: 1 montelukast (Singulair) 10 MG tablet, TAKE 1 TABLET BY MOUTH EVERY EVENING, Disp: 30 tablet, Rfl: 2 Multiple Vitamins-Minerals (Therapeutic-M/Lutein) tablet, TAKE 1 TABLET BY MOUTH IN THE MORNING, 1 TABLET AT NOON, AND 1 TABLET BEFORE BEDTIME, Disp: 90 tablet, Rfl: 11 rosuvastatin (Crestor) 40 MG tablet, Take 1 tablet (40 mg) by mouth Nightly., Disp: 90 tablet, Rfl: 1 sacubitril-valsartan (Entresto) 49-51 MG tablet, Take 1 tablet by mouth 2 times daily., Disp: 180 tablet, Rfl: 0 sertraline (Zoloft) 100 MG tablet, TAKE 1 TABLET BY MOUTH EVERY DAY IN THE MORNING, Disp: 30 tablet, Rfl: 2 spironolactone (Aldactone) 25 MG tablet, Take 1 tablet (25 mg) by mouth Nightly., Disp: 90 tablet, Rfl: 1 tiotropium (Spiriva Respimat) 1.25 MCG/ACT inhaler, Inhale 2 puffs daily., Disp: 4 g, Rfl: 2 torsemide (Demadex) 20 MG tablet, Take 20 mg by mouth in the morning and 20 mg before bedtime., Disp: , Rfl: Review of Systems: Review of Systems Constitutional: Negative for activity change, chills, diaphoresis, fatigue and fever. HENT: Negative for nosebleeds and trouble swallowing. Eyes: Negative for discharge and visual disturbance. Respiratory: Negative for apnea, cough, chest tightness, shortness of breath and wheezing. Cardiovascular: Negative for chest pain, palpitations and leg swelling. Gastrointestinal: Negative for abdominal distention, abdominal pain, blood in stool, diarrhea, nausea and vomiting. Endocrine: Negative for cold intolerance and heat intolerance. Genitourinary: Negative for hematuria. Musculoskeletal: Negative for gait problem and myalgias. Skin: Negative for color change and rash. Neurological: Negative for dizziness, seizures, syncope, facial asymmetry, speech difficulty, weakness, light-headedness, numbness and headaches. Hematological: Does not bruise/bleed easily. Psychiatric/Behavioral: Negative for dysphoric mood. Physical Examination: Vitals: Vitals: 09/19/22 1518 BP: 90/56 BP Location: Left arm Patient Position: Sitting BP Cuff Size: Adult Pulse: 72 Resp: 16 SpO2: 93% Weight: 195 lb 3.2 oz (88.5 kg) Height: 5' 9" (1.753 m) Body mass index is 28.83 kg/m . Physical Exam Laboratory Tests: Lab Results Component Value Date WBC 14.5 (H) 09/14/2022 HGB 15.0 09/14/2022 HCT 44.3 09/14/2022 MCV 93.3 09/14/2022 PLT 237 09/14/2022 Lab Results Component Value Date GLUCOSE 130 (H) 09/14/2022 CALCIUM 9.8 09/14/2022 NA 128 (L) 09/14/2022 K 3.6 09/14/2022 CO2 29 09/14/2022 CL 93 (L) 09/14/2022 BUN 20 09/14/2022 CREATININE 0.71 09/14/2022 @LASTP@ Lab Results Component Value Date CHOL 155 07/16/2022 Lab Results Component Value Date TRIG 53 07/16/2022 Lab Results Component Value Date HDL 90 (H) 07/16/2022 Lab Results Component Value Date LDLCALC 54 07/16/2022 NT PRO BNP Date Value Ref Range Status 09/12/2022 2,015 (H) 0 - 125 pg/mL Final Assessment and Plan: 1. HFrEF (heart failure with reduced ejection fraction) ([facility] ([facility]) 2. Essential hypertension 3. Tobacco abuse 4. Presence of implantable cardioverter-defibrillator (ICD) 1. Chronic systolic heart failure related to nonischemic cardiomyopathy. He is currently stable. We will continue medicines as is. 2. Biventricular ICD: He has been noncompliant with follow-up. We will have his device check today. 3. Chronic tobacco abuse: Advised to quit. 4. COPD. 5. History of atrial fibrillation: He is anticoagulated. He has maintained sinus rhythm. 6. History of medical noncompliance. documented in this encounter [facility] 09-17-2022 Telephone encounter Note Unable to reach patient by telephone, my chart message sent for patient to call and make hospital follow [employer] Eunice Schwartz LPN, on 09/17/22 at 8:42 AM. [facility] 09-17-2022 Miscellaneous Notes Unable to reach patient by telephone, my chart message sent for patient to call and make hospital follow [employer] Eunice Schwartz LPN, on 09/17/22 at 8:42 AM. Attempted to call pt. But there was a message stating that they aren't accepting calls. Please schedule patient for KISHAN with PCP. Harman Thompson MD PGY-3 09/14/22 11:43 AM documented in this encounter [facility] 09-14-2022 Telephone encounter Note Attempted to call pt. But there was a message stating that they aren't accepting calls. [facility] 09-14-2022 Miscellaneous Notes Attempted to call pt. But there was a message stating that they aren't accepting calls. Please schedule patient for KISHAN with PCP. Harman Thompson MD PGY-3 09/14/22 11:43 AM documented in this encounter [facility] 09-14-2022 History of Present illness Narrative CARDIOLOGY PROGRESS NOTE Chart and interval events reviewed. Reason for Visit SOB/HF SUBJECTIVE: Krystina Markham states that he feels better and ready to go home. Reports his breathing is at baseline. No chest pain or palpitations, Denies edema. SCHEDULED MEDICATIONS: apixaban, 5 mg, Oral, BID ergocalciferol, 1.25 mg, Oral, Weekly folic acid, 1 mg, Oral, Daily ipratropium-albuterol, 3 mL, Nebulization, 4x daily magnesium oxide, 400 mg, Oral, Daily metoprolol succinate XL, 100 mg, Oral, BID montelukast, 10 mg, Oral, Nightly multivitamin with lutein, 1 tablet, Oral, Daily nicotine, 1 patch, TransDERmal, Daily Followed by [START ON 10/25/2022] nicotine, 1 patch, TransDERmal, Daily predniSONE, 40 mg, Oral, Daily rosuvastatin, 40 mg, Oral, Nightly sacubitril-valsartan, 1 tablet, Oral, BID spironolactone, 25 mg, Oral, Nightly thiamine, 100 mg, Oral, Daily torsemide, 20 mg, Oral, BID Principal Problem: COPD exacerbation ([facility]) ([facility]) Active Problems: Tobacco abuse Presence of implantable cardioverter-defibrillator (ICD) Alcohol abuse Paroxysmal atrial fibrillation ([facility]) ([facility]) Chronic hyponatremia Essential hypertension HFrEF (heart failure with reduced ejection fraction) ([facility] ([facility]) Review of Systems: Review of Systems Constitutional: Negative for activity change, chills, diaphoresis, fatigue and fever. HENT: Negative for nosebleeds and trouble swallowing. Eyes: Negative for discharge and visual disturbance. Respiratory: Negative for apnea, cough, chest tightness, shortness of breath and wheezing. Cardiovascular: Negative for chest pain, palpitations and leg swelling. Gastrointestinal: Negative for abdominal distention, abdominal pain, blood in stool, diarrhea, nausea and vomiting. Endocrine: Negative for cold intolerance and heat intolerance. Genitourinary: Negative for hematuria. Musculoskeletal: Negative for gait problem and myalgias. Skin: Negative for color change and rash. Neurological: Negative for dizziness, seizures, syncope, facial asymmetry, speech difficulty, weakness, light-headedness, numbness and headaches. Hematological: Does not bruise/bleed easily. Psychiatric/Behavioral: Negative for dysphoric mood. VITAL SIGNS: Vitals: 09/13/22 2058 09/14/22 0034 09/14/22 0816 09/14/22 0842 BP: 104/57 109/67 BP Location: Right arm Patient Position: Sitting Pulse: 94 83 68 68 Resp: 18 16 18 18 Temp: 35.7 C (96.3 F) 36.3 C (97.4 F) TempSrc: Temporal Temporal SpO2: 95% 94% 94% 95% Weight: Height: Intake/Output Summary (Last 24 hours) at 09/14/2022 1247 Last data filed at 09/13/2022 1318 Gross per 24 hour Intake 240 ml Output -- Net 240 ml @[id number]@ Physical Exam: Physical Exam Constitutional: Comments: Appears older than stated age HENT: Head: Normocephalic and atraumatic. Nose: Nose normal. Eyes: Extraocular Movements: Extraocular movements intact. Neck: Vascular: No JVD. Cardiovascular: Rate and Rhythm: Normal rate and regular rhythm. Pulses: Normal pulses. Heart sounds: Normal heart sounds. Pulmonary: Effort: Pulmonary effort is normal. Breath sounds: Rhonchi present. Abdominal: General: Bowel sounds are normal. Palpations: Abdomen is soft. Neurological: Mental Status: He is alert and oriented to person, place, and time. Psychiatric: Mood and Affect: Mood normal. Behavior: Behavior normal. Data: Scheduled Meds: Reviewed Continuous Infusions: CBC: Recent Labs 09/13/22 1200 09/14/22 011 WBC 5.6 14.5* HGB 16.0 15.0 HCT 46.3 44.3 PLT 248 237 BMP: Recent Labs 09/13/22 1200 09/14/22 011 NA 126* 128* K 4.1 3.6 CL 92* 93* CO2 23 29 BUN 16 20 CREATININE 0.61* 0.71 INR:No results for input(s): INR in the last 72 hours. Recent Labs 09/12/222154 BNP 2,015* TSH: Lab Results Component Value Date TSH 2.568 07/16/2022 Cardiac Injury Profile: Recent Labs 09/12/222154 TROPONINI 0.016 Lipid Profile: No results found for: TRIG, HDL, LDLCALC, CHOL EKG: See Report Telemetry Reviewed: non-tele Echo: 07/19/2023 Left Ventricle: Left ventricle is moderately dilated. Mildly increased wall thickness. Severely reduced left ventricular systolic function. The EF by visual approximation is 25%. Global longitudinal strain is reduced. Severe global hypokinesis present. Indeterminate diastolic function due to atrial fibrillation. Right Ventricle: Right ventricle size is normal. Pacemaker lead present in the right ventricle. Moderately reduced systolic function. TAPSE is abnormal. TDI systolic excursion is abnormal. Mitral Valve: Mild (1+) regurgitation. Gene Type IIIb: Restricted leaflet motion in systole. Tricuspid Valve: Mild to moderate (1-2+) regurgitation. Moderately elevated RVSP. RVSP is 52 mmHg. Pulmonary Arteries: Pulmonary hypertension present. IVC/SVC: IVC is dilated. IVC diameter is dilated and decreases less than 50% during inspiration; therefore the estimated right atrial pressure is elevated (~15 mmHg). IMPRESSIONS/RECOMMENDATIONS: SOB: sounds like this was more consistent with COPD rather than heart failure. Reports being back at his baseline breathing. -discussed the importance of smoking cessation. He reports readiness to quit. -he does have heart failure with reduced ejection fraction. Continue Current inpatient cardiac meds. 2. H/o atrial fibrillation. Sounds regular on exam. He is non-tele. -continue BB and Eliquis 3. Disposition: OK to discharge from cardiology standpoint. Electronicallysigned by PRIYA Quiñones CNP on 09/14/2022 at 12:47 PM [id number]] Respiratory Therapy Home O2 Progress Note Any of the following criteria met: Qualifying ABG performed within the last 48 hour of discharge na Patient in Chronic stable state PO2 ?55mmHg at rest If yes, notify DME Date of ABG results: Time of ABG results: Qualifying Nocturnal Oximetry study na Patient in Chronic stable state Nocturnal recording SpO2 <88% for >5 minutes If yes, notify DME Date of Nocturnal Oximetry: Ambulation home O2 testing SpO2 at rest on RA = 95% HR at rest = 68 SpO2 with ambulation on RA = 92% Peak HR = 96 Distance Walked (ft)= 80ft Recovery SpO2 at rest=99% Recovery HR=74 O2 device na O2 flow rate (lpm) =na SpO2 with ambulation and O2 = na Peak HR = na O2 device = O2 flow rate (lpm) = Distance walked (ft) = Patient meets criteria for home O2 Y/N = no Patient mobile at home Y/N = yes Is additional O2 flow rate required during ambulation no DME Notified no MTS ATTENDING NOTE Case discussed with residents. Agree with findings and plan as documented in resident note. Independent exam done. Breathing is improved. Reports having wheezing at baseline. No CP, palpitations. No significant cough. BP 109/67 (BP Location: Right arm, Patient Position: Sitting) Pulse 68 Temp 36.3 C (97.4 F) (Temporal) Resp 18 Ht 5' 9" (1.753 m) Wt 190 lb (86.2 kg) SpO2 95% BMI 28.06 kg/m Gen: seated at bedside, getting aerosol treatment Lungs: faint expiratory wheeze bilat Heart: RRR, NS1, S2 Ext: no edema Lab Results Component Value Date WBC 14.5 (H) 09/14/2022 HGB 15.0 09/14/2022 HCT 44.3 09/14/2022 MCV 93.3 09/14/2022 PLT 237 09/14/2022 Lab Results Component Value Date GLUCOSE 130 (H) 09/14/2022 CALCIUM 9.8 09/14/2022 NA 128 (L) 09/14/2022 K 3.6 09/14/2022 CO2 29 09/14/2022 CL 93 (L) 09/14/2022 BUN 20 09/14/2022 CREATININE 0.71 09/14/2022 A: COPD Exacerbation Cardiomyopathy w/HFrEF-stable Atrial Fibrillation Tob Use DO Alcohol Abuse Hyponatremia-likely due to ETOH and CHF, improved 7. Leukocytosis-likley due to steroids P: Continue present meds No evidence of ETOH withdrawal. Needs abstinence upon discharge Arrange for follow up BMP Discharge today. Determine if needs O2 plus provide new nebulizer machine for home use Nutrition rescreen completed. Patient assigned a level 1. Images from the original note were not included. Medical Teaching Service Progress Note Patient: Krystina Markham : 1955 Acct: [id number] PCP: JAMIA SIERRA MD Admitting Physician: Siria Dumont MD Admission Date: 09/12/2022 Admitting Diagnosis: COPD exacerbation (CMS/HCC) ([facility]) [J44.1] Unit/Bed: [facility] A Hospital Day: 1 Code Status: Full Code Subjective: Patient c/o increased SOB overnight. Nurse checked vitals and patient was satting mid 90's on 4 L NC. Resting comfortably in bed this AM. Denies any SOB. States that he "wants to go home today". No other questions or concerns at this time. Objective: Vitals: 09/13/22 1738 09/13/22 1942 09/13/22 2058 09/14/22 0034 BP: 114/74 108/57 104/57 BP Location: Patient Position: Pulse: 80 84 94 83 Resp: 20 18 18 16 Temp: 36.3 C (97.4 F) 36.6 C (97.8 F) 35.7 C (96.3 F) TempSrc: Temporal Temporal Temporal SpO2: 96% 95% 94% Weight: Height: Temp (24hrs), Av.3 C (97.4 F), Min:35.7 C (96.3 F), Max:36.6 C (97.9 F) Intake/Output Summary (Last 24 hours) at 09/14/2022 0703 Last data filed at 09/13/2022 1318 Gross per 24 hour Intake 240 ml Output 675 ml Net -435 ml Physical Exam Constitutional: General: He is not in acute distress. Appearance: Normal appearance. He is obese. He is not ill-appearing or toxic-appearing. HENT: Head: Normocephalic and atraumatic. Nose: No congestion or rhinorrhea. Mouth/Throat: Mouth: Mucous membranes are moist. Pharynx: Oropharynx is clear. No oropharyngeal exudate or posterior oropharyngeal erythema. Eyes: General: No scleral icterus. Extraocular Movements: Extraocular movements intact. Conjunctiva/sclera: Conjunctivae normal. Pupils: Pupils are equal, round, and reactive to light. Neck: Vascular: No carotid bruit. Cardiovascular: Rate and Rhythm: Normal rate and regular rhythm. Heart sounds: Normal heart sounds. No murmur heard. No friction rub. No gallop. Pulmonary: Effort: Pulmonary effort is normal. Breath sounds: Wheezing (in all lung diggs with coarse breath sounds bilaterally.) present. No rhonchi or rales. Abdominal: General: Abdomen is flat. Bowel sounds are normal. There is no distension. Tenderness: There is no abdominal tenderness. There is no guarding or rebound. Comments: Protuberant abdomen Musculoskeletal: Cervical back: Normal range of motion and neck supple. Right lower leg: No edema. Left lower leg: No edema. Skin: General: Skin is warm and dry. Capillary Refill: Capillary refill takes less than 2 seconds. Coloration: Skin is not jaundiced. Neurological: General: No focal deficit present. Mental Status: He is alert and oriented to person, place, and time. Mental status is at baseline. Psychiatric: Mood and Affect: Mood normal. Behavior: Behavior normal. Thought Content: Thought content normal. Judgment: Judgment normal. Polanco: No Drains: No Central Line/Port: No Intubated: No CXR: Hyper inflated lungs with emphysematous changes, old rib fractures, pacer in situ Diet: Adult diet Regular; Low Fat/Low Chol/High Fiber/2 gm Na Medications: apixaban, 5 mg, Oral, BID ergocalciferol, 1.25 mg, Oral, Weekly folic acid, 1 mg, Oral, Daily ipratropium-albuterol, 3 mL, Nebulization, 4x daily magnesium oxide, 400 mg, Oral, Daily metoprolol succinate XL, 100 mg, Oral, BID montelukast, 10 mg, Oral, Nightly multivitamin with lutein, 1 tablet, Oral, Daily nicotine, 1 patch, TransDERmal, Daily Followed by [START ON 10/25/2022] nicotine, 1 patch, TransDERmal, Daily predniSONE, 40 mg, Oral, Daily rosuvastatin, 40 mg, Oral, Nightly sacubitril-valsartan, 1 tablet, Oral, BID spironolactone, 25 mg, Oral, Nightly thiamine, 100 mg, Oral, Daily torsemide, 20 mg, Oral, BID Continuous Infusions: PRN Meds: PRN medications: acetaminophen OR acetaminophen, polyethylene glycol (PEG) 3350 Labs: CBC: Results from last 7 days Lab Units 09/14/22 01109/13/22 1200 09/12/22 2155 WBC AUTO 10*3/uL 14.5* 5.6 9.3 HEMOGLOBIN g/dL 15.0 16.0 15.5 HEMATOCRIT % 44.3 46.3 44.6 PLATELETS AUTO 10*3/uL 237 248 250 NEUTROS PCT AUTO % 81.0* 89.9* 72.9 LYMPHS PCT AUTO % 7.7* 6.6* 14.2* MONOS PCT AUTO % 10.1* 2.6 10.1* EOS PCT AUTO % 0.2* 0.1* 1.4 BMP: Results from last 7 days Lab Units 09/14/22 0116 09/13/22 1200 09/12/22 2155 SODIUM mmol/L 128* 126* 126* POTASSIUM mmol/L 3.6 4.1 3.8 CHLORIDE mmol/L 93* 92* 91* CO2 mmol/L 29 23 26 BUN mg/dL 20 16 19 CREATININE mg/dL 0.71 0.61* 0.75 GLUCOSE mg/dL 130* 262* 151* CALCIUM mg/dL 9.8 9.4 9.7 LIVER PROFILE: No lab exists for component: LABALBU PT/INR: CARDIAC ENZYMES: Results from last 7 days Lab Units 09/12/22 2155 TROPONIN I ng/mL 0.016 Procalcitonin: Lab Results Component Value Date PROCAL 0.06 09/13/2022 Glucose: Patient Active Problem List Diagnosis Date Noted COPD exacerbation (CMS/HCC) (HCC) 09/13/2022 Alcohol abuse 07/28/2022 Presence of implantable cardioverter-defibrillator (ICD) 07/19/2022 Chest pain, unspecified type 07/17/2022 Hypochloremia 07/17/2022 Tobacco abuse 07/17/2022 HFrEF (heart failure with reduced ejection fraction) ([facility]) ([facility]) 07/17/2022 Paroxysmal atrial fibrillation ([facility]) ([facility]) 08/25/2021 History of rib fracture 08/25/2021 Hyponatremia 08/25/2021 Essential hypertension 08/25/2021 COPD (chronic obstructive pulmonary disease) (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) 04/10/2017 Cor pulmonale, acute ([facility]) ([facility]) 02/01/2016 Raynaud phenomenon 09/10/2015 ASSESSMENT/PLAN: Dyspnea 2/2 COPDe likely due to medication noncompliance WBC WNL, satting 94% on 2L. Procal 0.06, RVP neg. - Duonebs q4h until stable, then PRN - Cont. Home Singulair PO 10 mg nightly - POx checks - Supplemental 02 with goal of 88-92%, wean as tolerated - Regular diet - PT/OT to evaluate - Home O2 eval prior to discharge - Cont. Prednisone PO 40 mg x5 days (last day 09/17/22) Afib HFrEF ICD in situ Medication noncompliance BNP 2,015 (~4000 when discharged in May 2022). Mg and phos WNL. - Cardiology following, appreciate recs - Repeat EKG pending - Cont. home meds: - Toprol XL 100 mg daily - Crestor 40 mg nightly - Spironolactone 25 mg nightly - Entresto 24-26 mg BID - Eliquis 5 mg BID - Torsemide 20 mg daily Chronic hyponatremia likely 2/2 to beer potomania 124-126 baseline over the last year. S/p NSB. - Continue to monitor Alcohol abuse Endorses 4 beers a day. MAT neg, ethyl glucuronide positive. CIWA remains 0 since admisstion. - Cont. CIWA - Cont. home thiamine, folate and MV Long QT QTc 617 on admission. Biventricular pacer in situ. - Avoid QT prolonging drugs Depression - HOLD home Zoloft 100 mg d/t prolonged QT Misc - Vit D 5000 units - Mag-Ox 400 mg FEN/GI/DVT: IVF: None Electrolytes: Monitor and replace per protocols Diet: Cardiac GI PPX: No DVT Prophylaxis: Cont. Home Eliquis 5 mg BID Telemetry: Not on Telemetry DISPOSITION: Continued hospitalization for monitoring of oxygenation. Patient continues to improve clinically. Anticipate discharge when patient is medically stable. Pedro Subramanian MD Family Medicine, PGY-1 09/14/22 7:03 AM Occupational Therapy Facility/Department: ED Occupational Therapy Initial Evaluation NAME: Krystina Markham : 1955 Date of Service: 09/13/2022 Discharge Recommendations: Home with assist PRN Assessment Assessment: EVAL ONLY: Pt was and continues to be functionally independent in ADLs, functional transfers and mobility; pt with no concerns in returning home and pt with no acute OT needs. Prognosis: Good Decision Making: Low Complexity History: Pt admitted with SOB and AE COPD. PMH is listed above. Exam: [facility] Assistance / Modification: ind REQUIRES OT FOLLOW-UP: No Patient Diagnosis(es): The encounter diagnosis was COPD exacerbation (CMS/HCC) ([facility] has a past medical history of Alcohol consumption heavy (09/10/2015), Asthma, Atrial fibrillation (CMS/HCC) ([facility]), CHF (congestive heart failure) (CMS/HCC) ([facility]) (01/31/2016), COPD (chronic obstructive pulmonary disease) ([facility]) (09/10/2015), Cor, pulmonale, acute (CMS/HCC) ([facility]), Deep venous thrombosis ([facility]) (02/2016), Depression, blood clots, Obesity (09/10/2015), EDLORES (obstructive sleep apnea), Pulmonary embolus ([facility]), Raynaud phenomenon (09/10/2015), and Smoker (09/10/2015). has a past surgical history that includes Hernia repair; Bronchoscopy (02/25/2020); Nose surgery; Colonoscopy (10/27/2019); Finger amputation (Left); Abdominal surgery; CTA chest angiogram w and/or wo IV contrast (07/12/2022); and bronchoscopy (historical) (02/25/2020). Restrictions Restrictions/Precautions Restrictions/Precautions: Seizure, General Precautions, Fall Risk (CIWA) Required Braces or Orthoses?: No Vision/Hearing Vision: Within Functional Limits Hearing: Functional/adequate for paticipation in therapy Cognition/Orientation Overall Cognitive Status: WFL Overall Orientation Status: Within Normal Limits Subjective General Chart Reviewed: Yes Patient Assessed for Rehabilitation Services: Yes Family / Caregiver Present: No Subjective Subjective: Pt pleasant and cooperative. General Comments Comments: Per RNstanley for pt to participate in OT eval. Pain Assessment Pain Assessment: No/denies pain Pain Score: 0 - No pain Vital Signs Temp: 36.6 C (97.9 F) Temp Source: Oral Heart Rate: 71 Heart Rate Source: Monitor Resp: 22 BP: 121/74 MAP (mmHg): 89 BP Location: Left arm BP Method: Automatic Patient Position: Lying Height and Weight Height: 175.3 cm (5' 9") Height Method: Stated Weight: 86.2 kg (190 lb) Weight Method: Stated BSA (Calculated - sq m): 2.05 sq meters BMI (Calculated): 28.05 Weight in (lb) to have BMI = 25: 168.9 Oxygen Therapy SpO2: 94 % Pulse Oximetry Type: Continuous Patient Activity During SpO2 Measurement: At rest Oxygen Therapy: Supplemental oxygen O2 Delivery Method: Nasal cannula O2 Flow Rate (L/min): 4 L/min Social/Functional History Social/Functional History Lives With: Alone Type of Home: Apartment Home Layout: One level Home Access: Stairs to enter with rails Entrance Stairs - Number of Steps: 2 Bathroom Shower/Tub: Tub/Shower unit Bathroom Toilet: Standard Bathroom Accessibility: Accessible ADL Assistance: Independent Homemaking Assistance: Independent Homemaking Responsibilities: Yes Ambulation Assistance: Independent (no device) Transfer Assistance: Independent Active Food Services Director: Yes Objective Gross Assessment: Yes AROM: Within functional limits PROM: Within functional limits Strength: Within functional limits Coordination: Within functional limits Tone: Normal Sensation: Intact Observation/Palpation Posture: Good Observation: seen in ED, on 2 L O2 at time of evaluation (baseline no O2), SpO2 92-94% during mobility Balance Sitting Balance: Independent Standing Balance: Independent Functional Mobility Functional - Mobility Device: No device Activity: Other (functional distance in hallway) Functional Mobility Comments: Pt ambulated a functional distance in the hallway independently with a steady and reciprocal gait. ADL Feeding: Independent Grooming: Independent UE Bathing: Independent LE Bathing: Independent UE Dressing: Independent LE Dressing: Independent Toileting: Independent Additional Comments: Pt fully dressed upon arrival, however, donned footwear independently. Bed mobility Comment: NT sittiing at EOB pre/post session. Transfers Sit to stand: Independent Stand to sit: Independent Transfer Comments: no device Cognition Overall Cognitive Status: WFL Sensation Overall Sensation Status: Intact Plan Times per Week: eval only Plan Comment: POC was made in collaboration with the pt. Safety Safety Devices Safety Devices in place: Yes Type of devices: All fall risk precautions in place, Call light within reach, Gait belt, Patient at risk for falls, Left in bed, Nurse notified Type of devices: All fall risk precautions in place, Call light within reach, Gait belt, Patient at risk for falls, Left in bed, Nurse notified AM-PAC Score AM-PAC Inpatient Daily Activity Raw Score: 24 ADL Inpatient CMS G-Code Modifier: [facility] Education Education Given To: Patient Education Provided: OT Role, Plan of Care Education Method: Verbal Barriers to Learning: None Education Outcome: Verbalized understanding, Demonstrated understanding Therapy Time Individual Co-treatment Time In 0858 (co-eval with PT) Time Out 0912 Minutes 14 [place] OT Physical Therapy Facility/Department: [facility] ED Physical Therapy Initial Evaluation NAME: Krystina Markham : 1955 Date of Service: 09/13/2022 Discharge Recommendations: Home with assist PRN PT Equipment Recommendations Equipment Needed: No Assessment Assessment: EVAL ONLY. Pt presents at his functional baseline and is independent without a device for mobility. Pt reports no concerns for home going and has no further acute PT needs identified at this time. Recommend home with assist PRN. Decision Making: Low Complexity History: Pt admitted with SOB and COPD exacerbation. Exam: AM-PAC Clinical Presentation: Pt admitted with SOB and COPD exacerbation. Pt has medical history as indicated below that contributes to his clinical presentation. Pt presents at his functional baseline and is independent without a device for mobility. Pt reports no concerns for home going and has no further acute PT needs identified at this time. Recommend home with assist PRN. Requires PT Follow-Up: No No Skilled PT: Independent with functional mobility Discharge Recommendations: Home with assist PRN No Skilled PT: Independent with functional mobility Patient Diagnosis(es): The encounter diagnosis was COPD exacerbation ([facility] ([facility] has a past medical history of Alcohol consumption heavy (09/10/2015), Asthma, Atrial fibrillation ([facility]) ([facility]), CHF (congestive heart failure) ([facility]) ([facility]) (01/31/2016), COPD (chronic obstructive pulmonary disease) ([facility]) (09/10/2015), Cor, pulmonale, acute ([facility]) ([facility]), Deep venous thrombosis ([facility]) (02/2016), Depression, blood clots, Obesity (09/10/2015), DELORES (obstructive sleep apnea), Pulmonary embolus ([facility]), Raynaud phenomenon (09/10/2015), and Smoker (09/10/2015). has a past surgical history that includes Hernia repair; Bronchoscopy (02/25/2020); Nose surgery; Colonoscopy (10/27/2019); Finger amputation (Left); Abdominal surgery; CTA chest angiogram w and/or wo IV contrast (07/12/2022); and bronchoscopy (historical) (02/25/2020). Restrictions Restrictions/Precautions Restrictions/Precautions: Seizure, General Precautions, Fall Risk (CIWA) Required Braces or Orthoses?: No Vision/Hearing Vision: Within Functional Limits Hearing: Functional/adequate for paticipation in therapy Cognition/Orientation Overall Cognitive Status: WFL Overall Orientation Status: Within Normal Limits Subjective General Chart Reviewed: Yes Patient Assessed for Rehabilitation Services: Yes Family / Caregiver Present: No General Comment Comments: Per RN patient okay for therapy. Co-eval with OT. Subjective Subjective: Pt pleasant and agreeable to therapy. Orientation Orientation Overall Orientation Status: Within Normal Limits Social/Functional History Social/Functional History Lives With: Alone Type of Home: Apartment Home Layout: One level Home Access: Stairs to enter with rails Entrance Stairs - Number of Steps: 2 Bathroom Shower/Tub: Tub/Shower unit Bathroom Toilet: Standard Bathroom Accessibility: Accessible ADL Assistance: Independent Homemaking Assistance: Independent Homemaking Responsibilities: Yes Ambulation Assistance: Independent (no device) Transfer Assistance: Independent Active Food Services Director: Yes Objective Observation/Palpation Posture: Good Observation: seen in ED, on 2 L O2 at time of evaluation (baseline no O2), SpO2 92-94% during mobility AROM RLE (degrees) RLE AROM: WFL AROM LLE (degrees) LLE AROM : WFL Strength RLE Comment: demonstrates >3/5 with mobility Strength LLE Comment: demonstrates >3/5 with mobility Sensation Overall Sensation Status: Intact Bed mobility Comment: NT patient sitting EOB pre/post session. Denies issues completing bed mobility this date. Transfers Sit to Stand: Independent (to no device from EOB) Stand to sit: Independent Comment: Denies dizziness on initial stance. No LOB or instability. Ambulation Ambulation: Yes Ambulation 1 Surface 1: Level tile Device 1: No device Other Apparatus 1: (O2) Assistance 1: Independent Quality of Gait 1: Pt demonstrates reciprocal stepping with B foot clearance, no LOB or instability noted, occasional path deviations observed, good luiza Distance (ft) 1: 250 ft x 1 Comments 1: Pt reports this is his funtional baseline and reports no concerns for home going at this time. Balance Posture: Good Sitting - Static: Good Sitting - Dynamic: Good Standing - Static: Good Standing - Dynamic: Fair, + Plan # of visits: EVAL ONLY Plan Comment: Goals and/or treatment plan were established in collaboration with patient. Safety Safety Devices Safety Devices in Place: Yes Type of Devices: All fall risk precatuions in place, Call light within reach, Gait belt, Patient at risk for falls, Left in bed, Nurse notified AM-PAC Score AM-PAC Inpatient Mobility Raw Score: 24 Mobility Inpatient CMS G-Code Modifier: [facility] Education Education Given To: Patient Education Provided: Goals, PT Role, Plan of Care Education Method: Verbal Barriers to Learning: None Education Outcome: Verbalized understanding Therapy Time Individual Co-treatment Time In 0858 (co-eval with OT) Time Out 0912 Minutes 14 Nia Eubanks, PT MTS ATTENDING H and P Chart reviewed, case discussed with residents. Agree with findings as documented per resident H and P and resident notes. Independent H and P done Chief Complaint Patient presents with Shortness of Breath HPI: 67yo presents with worsening SOB over past 2 days. No significant cough or sputum. No fever or chills. No CP, palpitations, diaphoresis, dizziness, LH. Initially nebulizers helped but now less effective. Past Medical History: Diagnosis Date Alcohol consumption heavy 09/10/2015 Asthma Atrial fibrillation ([facility]) ([facility]) CHF (congestive heart failure) ([facility] ([facility]) 01/31/2016 COPD (chronic obstructive pulmonary disease) ([facility]) 09/10/2015 Cor, pulmonale, acute ([facility]) ([facility]) Deep venous thrombosis ([facility]) 02/2016 Depression Hx of blood clots Obesity 09/10/2015 DELORES (obstructive sleep apnea) Pulmonary embolus ([facility]) 6 16 Raynaud phenomenon 09/10/2015 Smoker 09/10/2015 Past Surgical History: Procedure Laterality Date ABDOMINAL SURGERY BRONCHOSCOPY 02/25/2020 BRONCHOSCOPY (HISTORICAL) 02/25/2020 COLONOSCOPY 10/27/[address] CHEST ANGIOGRAM W AND/OR WO IV CONTRAST 07/12/2022 CT CHEST ANGIOGRAM W AND/OR WO IV CONTRAST 07/12/2022 [facility] CT IMAGING FINGER AMPUTATION Left HERNIA REPAIR NOSE SURGERY No Known Allergies MEDS: NOTED Social History Tobacco Use Smoking status: Every Day Packs/day: 0.25 Years: 40.00 Pack years: 10.00 Types: Cigarettes Start date: 1972 Smokeless tobacco: Never Substance Use Topics Alcohol use: Yes Alcohol/week: 6.0 - 12.0 standard drinks Types: 6 - 12 Cans of beer per week Drug use: Never PEX: BP 121/74 (BP Location: Left arm, Patient Position: Lying) Pulse 73 Temp 36.6 C (97.9 F) (Oral) Resp 18 Ht 5' 9" (1.753 m) Wt 190 lb (86.2 kg) SpO2 93% BMI 28.06 kg/m Gen: seated at bedside, appears older then stated age, O2 in place Head: Normocephalic, rhinophyma Neck: supple, no nodes Lungs: barrel chest with decreased BS throughout, easy respirations Heart: distant S1, S2, RRR Abdo: rotund, soft, NT, ND, BS present Ext: no edema Lab Results Component Value Date WBC 9.3 09/12/2022 HGB 15.5 09/12/2022 HCT 44.6 09/12/2022 MCV 92.8 09/12/2022 PLT 250 09/12/2022 Lab Results Component Value Date GLUCOSE 151 (H) 09/12/2022 CALCIUM 9.7 09/12/2022 NA 126 (L) 09/12/2022 K 3.8 09/12/2022 CO2 26 09/12/2022 CL 91 (L) 09/12/2022 BUN 19 09/12/2022 CREATININE 0.75 09/12/2022 Lab Results Component Value Date ALT 14 07/16/2022 AST 39 07/16/2022 ALKPHOS 98 07/16/2022 BILITOT 0.5 07/16/2022 TROP: 0.016 BNPT: 2014 VB.42/42/31 EKG: paced rhythm CXR: cardiomegaly, cardiac device, no acute changes A: COPD Exacerbation Cardiomyopathy w/HFrEF-stable Atrial Fibrillation Tob Use DO Alcohol Abuse Hyponatremia-likely due to ETOH and CHF P: 1. Steroids, aerosols, O2. Prolactin P. No indications for antibiotics presently 2. Continue home meds, follow. Had recent hospitalization for CHF in July and presently appears stable. Cardio consult, check device 3. CIWA, follow 4. Follow Na. Images from the original note were not included. Medical Teaching Service Progress Note Patient: Krystina Markham : 1955 Acct: [id number] PCP: JAMIA SIERRA MD Admitting Physician: Siria Dumont MD Admission Date: 09/12/2022 Admitting Diagnosis: COPD exacerbation (CMS/HCC) (HCC) [J44.1] Unit/Bed: Hospital Day: 0 Code Status: Full Code Subjective: No acute events overnight. Patient desatted to 88% just before bed so ED placed him on 2L NC. Resting comfortably in bed this AM. States that he "coughs all the time" but its dry and non-productive. Denies any SOB. Satting 93-95 % on 2L. No other questions or concerns at this time. Objective: Vitals: 09/13/22 0402 09/13/22 0403 09/13/22 0800 09/13/22 0810 BP: 121/75 121/75 121/74 121/74 BP Location: Left arm Patient Position: Lying Pulse: 80 80 79 73 Resp: 18 18 Temp: 36.6 C (97.9 F) 36.6 C (97.9 F) TempSrc: Oral Oral SpO2: 97% 93% Weight: 190 lb (86.2 kg) Height: 5' 9" (1.753 m) Temp (24hrs), Av.6 C (97.8 F), Min:36.4 C (97.6 F), Max:36.6 C (97.9 F) No intake or output data in the 24 hours ending 09/13/22 0848 Physical Exam Constitutional: General: He is not in acute distress. Appearance: He is obese. He is not ill-appearing or toxic-appearing. HENT: Head: Normocephalic and atraumatic. Nose: No congestion or rhinorrhea. Mouth/Throat: Mouth: Mucous membranes are moist. Pharynx: Oropharynx is clear. No oropharyngeal exudate or posterior oropharyngeal erythema. Eyes: General: No scleral icterus. Extraocular Movements: Extraocular movements intact. Conjunctiva/sclera: Conjunctivae normal. Pupils: Pupils are equal, round, and reactive to light. Neck: Vascular: No carotid bruit. Cardiovascular: Rate and Rhythm: Normal rate and regular rhythm. Heart sounds: Normal heart sounds. No murmur heard. No friction rub. No gallop. Pulmonary: Effort: Pulmonary effort is normal. Breath sounds: Wheezing (in all lung diggs with coarse breath sounds bilaterally.) present. No rhonchi or rales. Abdominal: General: Abdomen is flat. Bowel sounds are normal. There is no distension. Tenderness: There is no abdominal tenderness. There is no guarding or rebound. Comments: Protuberant abdomen Musculoskeletal: Cervical back: Normal range of motion and neck supple. Right lower leg: No edema. Left lower leg: No edema. Skin: General: Skin is warm and dry. Capillary Refill: Capillary refill takes less than 2 seconds. Coloration: Skin is not jaundiced. Neurological: General: No focal deficit present. Mental Status: He is alert and oriented to person, place, and time. Mental status is at baseline. Psychiatric: Mood and Affect: Mood normal. Behavior: Behavior normal. Thought Content: Thought content normal. Judgment: Judgment normal. Polanco: No Drains: No Central Line/Port: No Intubated: No CXR: Hyper inflated lungs with emphysematous changes, old rib fractures, pacer in situ Diet: Adult diet Regular; Low Fat/Low Chol/High Fiber/2 gm Na Medications: apixaban, 5 mg, Oral, BID ergocalciferol, 1.25 mg, Oral, Weekly folic acid, 1 mg, Oral, Daily ipratropium-albuterol, 3 mL, Nebulization, 4x daily magnesium oxide, 400 mg, Oral, Daily metoprolol succinate XL, 100 mg, Oral, BID montelukast, 10 mg, Oral, Nightly multivitamin with lutein, 1 tablet, Oral, Daily nicotine, 1 patch, TransDERmal, Daily Followed by [START ON 10/25/2022] nicotine, 1 patch, TransDERmal, Daily predniSONE, 40 mg, Oral, Daily rosuvastatin, 40 mg, Oral, Nightly sacubitril-valsartan, 1 tablet, Oral, BID spironolactone, 25 mg, Oral, Nightly thiamine, 100 mg, Oral, Daily torsemide, 20 mg, Oral, BID Continuous Infusions: PRN Meds: PRN medications: acetaminophen OR acetaminophen, polyethylene glycol (PEG) 3350 Labs: CBC: Results from last 7 days Lab Units 09/12/22 2155 WBC AUTO 10*3/uL 9.3 HEMOGLOBIN g/dL 15.5 HEMATOCRIT % 44.6 PLATELETS AUTO 10*3/uL 250 NEUTROS PCT AUTO % 72.9 LYMPHS PCT AUTO % 14.2* MONOS PCT AUTO % 10.1* EOS PCT AUTO % 1.4 BMP: Results from last 7 days Lab Units 09/12/22 2155 SODIUM mmol/L 126* POTASSIUM mmol/L 3.8 CHLORIDE mmol/L 91* CO2 mmol/L 26 BUN mg/dL 19 CREATININE mg/dL 0.75 GLUCOSE mg/dL 151* CALCIUM mg/dL 9.7 LIVER PROFILE: No lab exists for component: LABALBU PT/INR: CARDIAC ENZYMES: Results from last 7 days Lab Units 09/12/22 2155 TROPONIN I ng/mL 0.016 Procalcitonin: No results found for: PROCAL Glucose: Patient Active Problem List Diagnosis Date Noted COPD exacerbation ([facility]) ([facility]) 09/13/2022 Alcohol abuse 07/28/2022 Presence of implantable cardioverter-defibrillator (ICD) 07/19/2022 Chest pain, unspecified type 07/17/2022 Hypochloremia 07/17/2022 Tobacco abuse 07/17/2022 HFrEF (heart failure with reduced ejection fraction) ([facility]) ([facility]) 07/17/2022 Paroxysmal atrial fibrillation ([facility]) ([facility]) 08/25/2021 History of rib fracture 08/25/2021 Hyponatremia 08/25/2021 Essential hypertension 08/25/2021 COPD (chronic obstructive pulmonary disease) (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) 04/10/2017 Cor pulmonale, acute ([facility]) ([facility]) 02/01/2016 Raynaud phenomenon 09/10/2015 ASSESSMENT/PLAN: Dyspnea 2/2 COPDe likely due to medication noncompliance WBC WNL, satting 94% on 2L. - Admit to [facility] - Duonebs q4h until stable, then PRN - Cont. Home Singulair PO 10 mg nightly - POx checks - Supplemental 02 with goal of 88-92%, wean as tolerated - Prednisone PO 40 mg x5 days - Procal pending - RVP pending - Regular diet - PT/OT to evaluate - Home O2 eval prior to d/c Afib HFrEF ICD in situ Medication noncompliance BNP 2,015 (~4000 when discharged in May 2022). Mg and phos WNL. - Cardiology following, appreciate recs - Repeat EKG pending - Cont. home meds: - Toprol XL 100 mg daily - Crestor 40 mg nightly - Spironolactone 25 mg nightly - Entresto 24-26 mg BID - Eliquis 5 mg BID - Torsemide 20 mg daily Chronic hyponatremia likely 2/2 to beer potomania 124-126 baseline over the last year. S/p NSB. - Continue to monitor Alcohol abuse Endorses 4 beers a day - CIWA - Ethyl glucuronide pending - MAT panel pending - Cont. home thiamine, folate and MV Long QT QTc 617 on admission. Biventricular pacer in situ. - Avoid QT prolonging drugs Depression - HOLD home Zoloft 100 mg d/t prolonged QT Misc - Vit D 5000 units - Mag-Ox 400 mg FEN/GI/DVT: IVF: None Electrolytes: Monitor and replace per protocols Diet: Cardiac GI PPX: No DVT Prophylaxis: Cont. Home Eliquis 5 mg BID Telemetry: Not on Telemetry DISPOSITION: Continued hospitalization for monitoring of oxygenation and Cardiology consultation. Patient continues to improve clinically. Anticipate discharge when patient is medically stable. Pedro Subramanian MD Family Medicine, PGY-1 09/13/22 8:50 AM documented in this encounter [facility] 09-14-2022 Telephone encounter Note Please schedule patient for KISHAN with PCP. Harman Thompson MD PGY-3 09/14/22 11:43 AM [facility] 09-14-2022 Hospital course Narrative Images from the original note were not included. Medical Teaching Service Discharge Summary Patient: Krystina Markham : 1955 Acct: [id number] PCP: JAMIA SIERRA MD Admitting Physician: Siria Dumont MD Admission Date: 09/12/2022 Discharge Date: 09/14/21 Visit Status: Observation Code Status: Full Code Admission Diagnosis: COPD exacerbation (CMS/HCC) (HCC) [J44.1] Discharge Diagnoses: Resolved Problems: COPD exacerbation (CMS/HCC) ([facility]) Active Problems: Tobacco abuse Presence of implantable cardioverter-defibrillator (ICD) Alcohol abuse Paroxysmal atrial fibrillation (CMS/HCC) (HCC) Hyponatremia Essential hypertension HFrEF (heart failure with reduced ejection fraction) (CMS/HCC) ([facility]) Problem List Items Addressed This Visit Respiratory * (Principal) COPD exacerbation (CMS/HCC) ([facility]) - Primary Other Chronic hyponatremia Overview Hypotonic serum and urine, Na usually 124-128. Cortisol normal. Relevant Orders Basic metabolic panel HOSPITAL COURSE: Krystina Markham is a 67 y.o. male who presented to the ED c/o SOB. Notable workup in the ED included a low sodium at 126, BG of 151, BNP 2,105. Troponin, Procal, RVP were negative. Treatment initiated for COPDe included supplemental O2 at 2L NC to maintain SpO2 88-92%. Steroids x 5 days and a home O2 evaluation prior to discharge. Cardiology was consulted and optimized his medications as well as ordered a device check for his ICD. A home O2 evaluation was completed and patient did not qualify for home oxygen. Patient endorsed that his home nebulizer machine was broken, so an order was placed for a new one, [facility] helped assist. The decision was made to discharge the patient to home as they were medically and hemodynamically stable. Discharge instructions were discussed with patient who understood and was agreeable. Significant Medication Changes: START - Cont. Prednisone 40 mg PO daily x 3 more days (end 07/18/23) - Nebs - Spiriva CHANGE - Entresto 24-26 MG tablet to Entresto 49-51 MG tablet RECOMMENDED NEXT STEPS: - PCP follow-up - Cardiology follow-up SIGNIFICANT DIAGNOSTIC STUDIES: CXR done 09/13/22: 1. Stable examination. No acute findings. Consultants: IP CONSULT TO CARDIOLOGY Pending Inpatient Studies: No Discharge Instructions: Diet: Adult diet Regular; Low Fat/Low Chol/High Fiber/2 gm Na Activity: No restriction. Disposition: Home Recommended Follow Up: Jamia Sierra MD [address] [facility] [address] Schedule an appointment as soon as possible for a visit Hospital Follow Up Ronnie Almaraz MD [address] [facility] [address] [facility] [phone] Go on 09/19/2022 For hospitalization follow-up Discharge Medications: Medication List START taking these medications ipratropium-albuterol 0.5-2.5 mg/3 mL nebulizer solution Commonly known as: Duo-Neb Take 3 mL by nebulization 2 times daily as needed for wheezing or shortness of breath. predniSONE 20 MG tablet Commonly known as: Deltasone Take 2 tablets (40 mg) by mouth daily for 3 doses. Do not start before September 15, 2022. Start taking on: September 15, 2022 sacubitril-valsartan 49-51 MG tablet Commonly known as: Entresto Take 1 tablet by mouth 2 times daily. Replaces: sacubitril-valsartan 24-26 MG tablet tiotropium 2.5 MCG/ACT inhaler Commonly known as: Spiriva Respimat Inhale 2 puffs daily. CHANGE how you take these medications * albuterol 108 (90 Base) MCG/ACT inhaler INHALE 2 PUFFS EVERY 6 HOURS NEEDED FOR WHEEZING OR SHORTNESS OF BREATH. What changed: Another medication with the same name was added. Make sure you understand how and when to take each. * albuterol (2.5 MG/3ML) 0.083% nebulizer solution Take 3 mL (2.5 mg) by nebulization as needed for wheezing or shortness of breath. What changed: You were already taking a medication with the same name, and this prescription was added. Make sure you understand how and when to take each. * This list has 2 medication(s) that are the same as other medications prescribed for you. Read the directions carefully, and ask your doctor or other care provider to review them with you. CONTINUE taking these medications [facility] B-1 100 MG tablet Generic drug: thiamine Eliquis 5 MG tablet Generic drug: apixaban TAKE 1 TABLET BY MOUTH IN THE MORNING AND 1 TABLET BEFORE BEDTIMESTART ON 07/30/22 ergocalciferol 1.25 MG (80213 UT) capsule Commonly known as: Vitamin D2 TAKE 1 CAPSULE BY MOUTH ONCE WEEKLY *DO NOT START BEFORE JUL 25 folic acid 1 MG tablet Commonly known as: Folvite Take 1 tablet (1 mg) by mouth in the morning. magnesium oxide 400 MG tablet Commonly known as: Mag-Ox metoprolol succinate XL 100 MG 24 hr tablet Commonly known as: Toprol-XL Take 1 tablet (100 mg) by mouth in the morning and 1 tablet (100 mg) before bedtime. Do not crush or chew.. montelukast 10 MG tablet Commonly known as: Singulair TAKE 1 TABLET BY MOUTH EVERY EVENING rosuvastatin 40 MG tablet Commonly known as: Crestor Take 1 tablet (40 mg) by mouth Nightly. sertraline 100 MG tablet Commonly known as: Zoloft TAKE 1 TABLET BY MOUTH EVERY DAY IN THE MORNING spironolactone 25 MG tablet Commonly known as: Aldactone Take 1 tablet (25 mg) by mouth Nightly. Therapeutic-M/Lutein tablet TAKE 1 TABLET BY MOUTH IN THE MORNING, 1 TABLET AT NOON, AND 1 TABLET BEFORE BEDTIME torsemide 20 MG tablet Commonly known as: Demadex STOP taking these medications sacubitril-valsartan 24-26 MG tablet Commonly known as: Entresto Replaced by: sacubitril-valsartan 49-51 MG tablet Where to Get Your Medications These medications were sent to [facility] [address] [place] [address] Hours: Saturday to Saturday 10 am to 6 pm albuterol (2.5 MG/3ML) 0.083% nebulizer solution ipratropium-albuterol 0.5-2.5 mg/3 mL nebulizer solution predniSONE 20 MG tablet sacubitril-valsartan 49-51 MG tablet tiotropium 2.5 MCG/ACT inhaler Follow up questions for RN/MA: 1. Did you get medications filled and taking them as instructed from discharge? 2. Are you following your discharge instructions from your hospital stay? Signed: Harman Thompson MD 09/14/2022 11:37 AM documented in this encounter [facility] 09-14-2022 Note Formatting of this n ote might be different from the original. Care Managment Initial Assessment Date: 09/14/2022 Patient Name: Krystina Markham : 1955 Patient Information Source of Information: Patient Name/Contact Information: MELODIE WORTHINGTON EX [phone] Cognition/Language: WFL - Within Functional Limits Permission given to speak with patient outbound call center representative/caregiver as indicated: Yes Confirmation of Payer with patient/family: Yes Payer Name: [employer] MEDICARE [place]: No Confirmation of Primary Care Physician: Confirmed PCP Name: [facility] Seen in last 2 years?: Yes Primary Caregiver: Self If assistance needed, confirmed caregiver ready, willing and able to care for patient at discharge: Confirmed with: Living Arrangements Current Residence: Apartment Number of Floors 1 Number of Entry Steps: 2 Bed/Bath Levels: Both first floor Facility: Facility Name: [facility] Plan to Return: Yes Lives with: Friends Support Systems: Friends/neighbors Activities of Daily Living Ambulation: Independent Bathing/Dressing: Independent Elimination/Continence/Toileting: Independent Feeding: Independent Who Assists with Activities of Daily Living: NA Instrumental Activities of Daily Living Prescription Coverage: Yes Pharmacy Used: [facility] [place] Medication Management: Independent Transportation/Shopping: Independent Transportation Mode: Car Needs Assistance with Transportation at Discharge: No Meal Preparation: Independent Laundry/Cleaning: Independent Finances/Bill Paying: Independent Communication: Independent Types of Care Services/Equipment Utilized Care Services: Dialysis Type: NA Durable Medical Equipment: Nebulizer Patient's Goal/Discharge Plan Patient expects to be discharged to: HOME Discharge Planning Actions: Continue to follow Patient's Choice Rights and [employer] and Collaborative Relationships Disclosed as Indicated for Post-Acute Care: NA Interdisciplinary Team Engagement: Social Work Referral for: Additional Information: Inpatient status from home with ex.of copd. Admit to tel. Aerosols, steroids, cardiology consulted, ciwa, pt/ot. Discharge preparation checklist reviewed with patient. Has prescription coverage and able to afford medication. Lives at home with friends. Denies using oxygen at home. Did state attending was going to order new nebulizer as his broke. Did message primary care nurse to follow. Denies anticipating any needs upon discharge and is planning on discharging today. Patricia Chase RN [facility] 09-14-2022 Note Formatting of this n ote might be different from the original. Care Managment Initial Assessment Date: 09/14/2022 Patient Name: Krystina Markham : 1955 Patient Information Source of Information: Patient Name/Contact Information: MELODIE WORTHINGTON EX [phone] Cognition/Language: WFL - Within Functional Limits Permission given to speak with patient outbound call center representative/caregiver as indicated: Yes Confirmation of Payer with patient/family: Yes Payer Name: NICHELLE GARCÍA AND MEDICARE : No Confirmation of Primary Care Physician: Confirmed PCP Name: [facility] Seen in last 2 years?: Yes Primary Caregiver: Self If assistance needed, confirmed caregiver ready, willing and able to care for patient at discharge: Confirmed with: Living Arrangements Current Residence: Apartment Number of Floors 1 Number of Entry Steps: 2 Bed/Bath Levels: Both first floor Facility: Facility Name: NA Plan to Return: Yes Lives with: Friends Support Systems: Friends/neighbors Activities of Daily Living Ambulation: Independent Bathing/Dressing: Independent Elimination/Continence/Toileting: Independent Feeding: Independent Who Assists with Activities of Daily Living: NA Instrumental Activities of Daily Living Prescription Coverage: Yes Pharmacy Used: [facility] [place] Medication Management: Independent Transportation/Shopping: Independent Transportation Mode: Car Needs Assistance with Transportation at Discharge: No Meal Preparation: Independent Laundry/Cleaning: Independent Finances/Bill Paying: Independent Communication: Independent Types of Care Services/Equipment Utilized Care Services: Dialysis Type: NA Durable Medical Equipment: Nebulizer Patient's Goal/Discharge Plan Patient expects to be discharged to: HOME Discharge Planning Actions: Continue to follow Patient's Choice Rights and [employer] and Collaborative Relationships Disclosed as Indicated for Post-Acute Care: NA Interdisciplinary Team Engagement: Social Work Referral for: Additional Information: Inpatient status from home with ex.of copd. Admit to tel. Aerosols, steroids, cardiology consulted, gail, pt/ot. Discharge preparation checklist reviewed with patient. Has prescription coverage and able to afford medication. Lives at home with friends. Denies using oxygen at home. Did state attending was going to order new nebulizer as his broke. Did message primary care nurse to follow. Denies anticipating any needs upon discharge and is planning on discharging today. Patricia Chase RN [facility] 09-14-2022 Miscellaneous Notes Care Managment Initial Assessment Date: 09/14/2022 Patient Name: Krystina Markham : 1955 Patient Information Source of Information: Patient Name/Contact Information: MELODIE WORTHINGTON EX [phone] Cognition/Language: WFL - Within Functional Limits Permission given to speak with patient outbound call center representative/caregiver as indicated: Yes Confirmation of Payer with patient/family: Yes Payer Name: [place] AND MEDICARE [place]: No Confirmation of Primary Care Physician: Confirmed PCP Name: [facility] Seen in last 2 years?: Yes Primary Caregiver: Self If assistance needed, confirmed caregiver ready, willing and able to care for patient at discharge: Confirmed with: Living Arrangements Current Residence: Apartment Number of Floors 1 Number of Entry Steps: 2 Bed/Bath Levels: Both first floor Facility: Facility Name: [facility] Plan to Return: Yes Lives with: Friends Support Systems: Friends/neighbors Activities of Daily Living Ambulation: Independent Bathing/Dressing: Independent Elimination/Continence/Toileting: Independent Feeding: Independent Who Assists with Activities of Daily Living: NA Instrumental Activities of Daily Living Prescription Coverage: Yes Pharmacy Used: [facility] [place] Medication Management: Independent Transportation/Shopping: Independent Transportation Mode: Car Needs Assistance with Transportation at Discharge: No Meal Preparation: Independent Laundry/Cleaning: Independent Finances/Bill Paying: Independent Communication: Independent Types of Care Services/Equipment Utilized Care Services: Dialysis Type: NA Durable Medical Equipment: Nebulizer Patient's Goal/Discharge Plan Patient expects to be discharged to: HOME Discharge Planning Actions: Continue to follow Patient's Choice Rights and [employer] and Collaborative Relationships Disclosed as Indicated for Post-Acute Care: NA Interdisciplinary Team Engagement: Social Work Referral for: Additional Information: Inpatient status from home with ex.of copd. Admit to tel. Aerosols, steroids, cardiology consulted, ciwa, pt/ot. Discharge preparation checklist reviewed with patient. Has prescription coverage and able to afford medication. Lives at home with friends. Denies using oxygen at home. Did state attending was going to order new nebulizer as his broke. Did message primary care nurse to follow. Denies anticipating any needs upon discharge and is planning on discharging today. Patricia Chase RN documented in this encounter [facility] 09-14-2022 Hospital Discharge instructions Harman Thompson MD - 09/14/2022 10:35 AM EST COPD SIGNS AND SYMPTOMS GREEN ZONE: All Clear- Your Symptoms Are Under Control Able to do usual activities Usual amounts of cough and phlegm/mucus No chest pain Your usual medications are controlling your symptoms This Means You Should: Continue taking your medications as prescribed Continue activity as tolerated Keep all doctor appointments Avoid smoking and exposure to strong chemical odors YELLOW ZONE: Caution as Your Health may be Worsening Increased cough and/or sputum production Increased shortness of breath with usual activity Increase in the amount of quick relief medications needed Increased fatigue or restlessness Poor sleep and symptoms waking you up Uneasy feeling or that something is wrong This Means You Should: Call your doctor for further instructions JAMIA SIERRA MD [address] [place], [place] [id number] RED ZONE: Medical Alert Severe or unrelieved shortness of breath at rest Unrelieved chest pain Not able to do any activity because of breathing Not able to sleep because of breathing Confusion or you can't think clearly This Means You Should Call 911 Immediately Nia Toussaint RN - 09/14/2022 12:13 PM EST As tolerated documented in this encounter [facility] 09-13-2022 Emergency department Note Pt brought up to RN about the need for a new aerosol machine at home d/t his old one no longer working. RN stated that she would relay this message on. Lindsay Martin RN 09/13/22 0535 [facility] 09-13-2022 Emergency department Note Pt brought up to RN about the need for a new aerosol machine at home d/t his old one no longer working. RN stated that she would relay this message on. Lindsay Martin RN 09/13/[address] Cam machine. Lindsay Martin RN 09/13/22 1110 Pt up walking hallway with physical therapy assistance. Lindsay Martin RN 09/13/22 0909 Blankets draped over bed rails for seizure precautions. Pt denies any other needs at this time. Pt on lunchroom monitor. Will continue to monitor Brittany Jesus RN 09/13/22 0408 Pt oxygen desat to 88-90% RA. Pt put on 2L NC, sats now 95% Brittany Jesus RN 09/13/22 0054 Pt ambulate to restroom. Steady gait Brittany Jesus RN 09/13/22 0014 RT called for breathing tx Brittany Jesus RN 09/12/22 8612 RT called for breathing txs, Xray at bedside Brittany Jesus RN 09/12/22 4877 Emergency Department Encounter [facility] ED Patient: Krystina Markham : 1955 Date of Evaluation: 09/12/2022 ED Supervising Physician: Tiffanie Gaffney DO I independently examined and evaluated Krystina Markham. This will serve as my Supervisory note as the director of institutional giving of record and shared attestation. I did perform a substantive portion of the visit including all aspects of the Medical Decision Making. I wore appropriate PPE for the entirety of this encounter. In brief, Krystina Markham is a 67 y.o. male with past medical history of COPD, A. fib, heart failure with reduced ejection fraction status post ICD that presents to the emergency department for dyspnea. Patient reports dyspnea that has been worsening over the past couple of days with associated wheezing and nonproductive cough. Patient denies chest pain, fever/chills, lower extremity swelling. Patient reports he is compliant with all his medications. Focused exam: Gen: NAD HEENT: Head atraumatic. Eyes no discharge, nonicteric and non injected Neck: supple Heart: RRR, no murmur Lungs: Diffuse end expiratory wheezing Abd: soft, non distended and no tenderness to palpation Extremities: 2+ radial and DP. Cap refill normal. No edema. Full range of motion of all 4 extremities Neuro: A&Ox3. Strength 5/5 in bilateral UE and LE bilaterally. Sensation to light touch intact in bilateral UE and LE. Skin: no rash or lesions to exposed skin Psych: normal affect Brief ED course/MDM: 67 y.o. male with past medical history of COPD, A. fib, heart failure with reduced ejection fraction status post ICD that presents to the emergency department for dyspnea. Upon arrival to the ED, patient afebrile, hemodynamically stable, and saturating well on room air. Patient with increased work of breathing and diffuse and expiratory wheezing. Improved with DuoNeb and Solu-Medrol. EKG with a ventricular paced rhythm, not meeting scar Bosa criteria. VBG with no retention or acidosis. Patient found to be hyponatremic at 126. Troponin negative. Plan for admission to medicine for further management of COPD exacerbation. X-ray with no evidence of pneumonia, or pulmonary edema, or wili mediastinum. Pt admitted to medicine for further management. Total critical care time today provided was at least 45 minutes. This excludes seperately billable procedure. Critical care time provided for COPD exacerbation that required close evaluation and/or intervention with concern for patient decompensation. All diagnostic, treatment, and disposition decisions were made by myself in conjunction with the IS[facility]ELLE. For all further details of the patient's emergency department visit, please see their documentation. (Comment: Please note this report has been produced using speech recognition software and may contain errors related to that system including errors in grammar, punctuation, and spelling, as well as words and phrases that may be inappropriate. If there are any questions or concerns please feel free to contact the dictating provider for clarification.) Tiffanie Gaffney DO Acute Care [facility] Tiffanie Gaffney DO 09/12/22 2240 Patient presents to ED c/o shortness of breath x1 day. Patient states he has chronic bronchitis and has been using his inhalers with little relief. documented in this encounter [facility] 09-13-2022 Emergency department Note Pacemaker interrogated with St Cam machine. Lindsay Martin RN 09/13/22 1110 [facility] 09-13-2022 Consult note Associated Order (s): IP CONSULT TO CARDIOLOGY CARDIOLOGY CONSULTATION Patient Name: Krystina Markham :1955 Reason for consultation: Shortness of breath and history of heart failure History of Present Illness: This is a 67-year-old male with a history of cardiomyopathy with LV dysfunction. He has a biventricular ICD in place. He also has significant COPD. He has had worsening shortness of breath. He has a minimally productive cough. He denies fevers or chills. He has not had any chest pain or tightness. He does have some orthopnea. He has been relatively weak. PastMedical History: has a past medical history of Alcohol consumption heavy (09/10/2015), Asthma, Atrial fibrillation ([facility] ([facility] CHF (congestive heart failure) ([facility]) ([facility]) (01/31/2016), COPD (chronic obstructive pulmonary disease) ([facility]) (09/10/2015), Cor, pulmonale, acute ([facility]) ([facility]), Deep venous thrombosis ([facility]) (02/2016), Depression, blood clots, Obesity (09/10/2015), DELORES (obstructive sleep apnea), Pulmonary embolus ([facility]), Raynaud phenomenon (09/10/2015), and Smoker (09/10/2015). Surgical History: has a past surgical history that includes Hernia repair; Bronchoscopy (02/25/2020); Nose surgery; Colonoscopy (10/27/2019); Finger amputation (Left); Abdominal surgery; CTA chest angiogram w and/or wo IV contrast (07/12/2022); and bronchoscopy (historical) (02/25/2020). Social History: reports that he has been smoking cigarettes. He started smoking about 50 years ago. He has a 10.00 pack-year smoking history. He has never used smokeless tobacco. He reports current alcohol use of about 6.0 - 12.0 standard drinks per week. He reports that he does not use drugs. Family History: family history includes Asthma in his father and sister; defects in his father and sister; Cancer in his father and mother; Diabetes in his mother; Heart disease in his brother and mother; Pacemaker in his mother. Medications: Prior to Admission medications Medication Sig Start Date End Date Taking? Authorizing Provider albuterol 108 (90 Base) MCG/ACT inhaler INHALE 2 PUFFS EVERY 6 HOURS NEEDED FOR WHEEZING OR SHORTNESS OF BREATH. 08/21/22 09/20/22 Jose M Wiggins MD [facility] 100 MG tablet Take 100 mg by mouth in the morning. 04/09/22 Historical Provider, MD Marmolejo 5 MG tablet TAKE 1 TABLET BY MOUTH IN THE MORNING AND 1 TABLET BEFORE BEDTIMESTART ON 07/30/22 08/22/22 Lucero Delgado MD ergocalciferol (Vitamin D2) 1.25 MG (88549 UT) capsule TAKE 1 CAPSULE BY MOUTH ONCE WEEKLY *DO NOT START BEFORE JUL 25 08/29/22 Lucero Delgado MD folic acid (Folvite) 1 MG tablet Take 1 tablet (1 mg) by mouth in the morning. 07/19/22 07/19/23 Lan Villegas MD magnesium oxide (Mag-Ox) 400 MG tablet Take 1 tablet by mouth in the morning. 04/09/22 Historical Provider, metoprolol succinate XL (Toprol-XL) 100 MG 24 hr tablet Take 1 tablet (100 mg) by mouth in the morning and 1 tablet (100 mg) before bedtime. Do not crush or chew.. 07/30/22 10/28/22 PRIYA Perez CNP montelukast (Singulair) 10 MG tablet TAKE 1 TABLET BY MOUTH EVERY EVENING 08/21/22 Jose M Wiggins MD Multiple Vitamins-Minerals (Therapeutic-M/Lutein) tablet TAKE 1 TABLET BY MOUTH IN THE MORNING, 1 TABLET AT NOON, AND 1 TABLET BEFORE BEDTIME 08/14/22 Jamia Sierra MD rosuvastatin (Crestor) 40 MG tablet Take 1 tablet (40 mg) by mouth Nightly. 07/30/22 07/30/23 PRIAY Perez CNP sacubitril-valsartan (Entresto) 24-26 MG tablet Take 1 tablet by mouth in the morning and 1 tablet before bedtime. 07/30/22 08/29/22 PRIYA Perez CNP sertraline (Zoloft) 100 MG tablet TAKE 1 TABLET BY MOUTH EVERY DAY IN THE MORNING 08/21/22 Jose M Wiggins MD spironolactone (Aldactone) 25 MG tablet Take 1 tablet (25 mg) by mouth Nightly. 07/30/22 PRIYA Perez CNP torsemide (Demadex) 20 MG tablet Take 20 mg by mouth in the morning and 20 mg before bedtime. 07/09/22 Historical Provider, @[email or web address]@ Allergies: Patient has no known allergies. Review of Systems: Review of Systems Constitutional: Positive for fatigue. Respiratory: Positive for cough and shortness of breath. Negative for chest tightness. Cardiovascular: Negative for chest pain, palpitations and leg swelling. Neurological: Positive for weakness. Negative for dizziness, syncope and light-headedness. All other systems reviewed and are negative. VITAL SIGNS:BP 121/74 (BP Location: Left arm, Patient Position: Lying) Pulse 71 Temp 36.6 C (97.9 F) (Oral) Resp 22 Ht 5' 9" (1.753 m) Wt 190 lb (86.2 kg) SpO2 94% BMI 28.06 kg/m @IODETAILS@ @[email or web address]@ 0 Physical Exam Constitutional: Appearance: Normal appearance. HENT: Head: Normocephalic and atraumatic. Nose: Nose normal. Eyes: General: No scleral icterus. Extraocular Movements: Extraocular movements intact. Pupils: Pupils are equal, round, and reactive to light. Neck: Thyroid: No thyromegaly. Vascular: No carotid bruit or JVD. Cardiovascular: Rate and Rhythm: Normal rate and regular rhythm. Pulses: Normal pulses. Heart sounds: Heart sounds are distant. No murmur heard. No gallop. Pulmonary: Effort: Pulmonary effort is normal. Breath sounds: Rhonchi present. No wheezing or rales. Chest: Chest wall: No tenderness. Abdominal: General: Abdomen is flat. There is no distension. Palpations: Abdomen is soft. There is no hepatomegaly, splenomegaly or mass. Musculoskeletal: General: No swelling or tenderness. Normal range of motion. Cervical back: No tenderness. Skin: General: Skin is warm. Neurological: General: No focal deficit present. Mental Status: He is alert and oriented to person, place, and time. Cranial Nerves: Cranial nerves 2-12 are intact. No cranial nerve deficit. Psychiatric: Attention and Perception: Attention normal. Mood and Affect: Mood normal. Speech: Speech normal. Behavior: Behavior normal. Pertinent Labs: CBC: Recent Labs 09/12/222154 WBC 9.3 HGB 15.5 PLT 250 BMP: Recent Labs 09/12/222154 NA 126* K 3.8 CL 91* CO2 26 BUN 19 CREATININE 0.75 GLUCOSE 151* ABGs: No results found for: PHART, PO2ART, ORR1UVF INR: No results for input(s): INR in the last 72 hours. PRO-BNP: No components found for: NTPROBNP TSH: Lab Results Component Value Date TSH 2.568 07/16/2022 Cardiac Injury Profile: Recent Labs 01/11/23 2155 TROPONINI 0.016 Lipid Profile: No results found for: TRIG, HDL, LDLCALC, CHOL Hemoglobin A1C: No results found for: HGBA1C ECG: See report : @RISRSLT@ EKG: See Report Telemetry Reviewed : Sinus rhythm with ventricular paced Echo: See Report Assessment/Plan: Shortness of breath: Symptoms seem more consistent with COPD this time. I will adjust his heart failure medicines. I will have his device check to make sure he is pacing by ventricularly an appropriate amount. COPD with chronic tobacco abuse Hyponatremia Biventricular ICD Hx of afib. In NSR, anticoagulated Electronically signedby @[email or web address]@ on @TDNR@ at @NOWNR@ [place] Phone: 09-13-2022 Consult note Associated Order (s): IP CONSULT TO CARDIOLOGY CARDIOLOGY CONSULTATION Patient Name: Krystina Markham :1955 Reason for consultation: Shortness of breath and history of heart failure History of Present Illness: This is a 67-year-old male with a history of cardiomyopathy with LV dysfunction. He has a biventricular ICD in place. He also has significant COPD. He has had worsening shortness of breath. He has a minimally productive cough. He denies fevers or chills. He has not had any chest pain or tightness. He does have some orthopnea. He has been relatively weak. PastMedical History: has a past medical history of Alcohol consumption heavy (09/10/2015), Asthma, Atrial fibrillation ([facility] ([facility]), CHF (congestive heart failure) ([facility]) ([facility]) (01/31/2016), COPD (chronic obstructive pulmonary disease) ([facility]) (09/10/2015), Cor, pulmonale, acute ([facility]) ([facility]), Deep venous thrombosis ([facility]) (02/2016), Depression, blood clots, Obesity (09/10/2015), DELORES (obstructive sleep apnea), Pulmonary embolus ([facility]), Raynaud phenomenon (09/10/2015), and Smoker (09/10/2015). Surgical History: has a past surgical history that includes Hernia repair; Bronchoscopy (02/25/2020); Nose surgery; Colonoscopy (10/27/2019); Finger amputation (Left); Abdominal surgery; CTA chest angiogram w and/or wo IV contrast (07/12/2022); and bronchoscopy (historical) (02/25/2020). Social History: reports that he has been smoking cigarettes. He started smoking about 50 years ago. He has a 10.00 pack-year smoking history. He has never used smokeless tobacco. He reports current alcohol use of about 6.0 - 12.0 standard drinks per week. He reports that he does not use drugs. Family History: family history includes Asthma in his father and sister; defects in his father and sister; Cancer in his father and mother; Diabetes in his mother; Heart disease in his brother and mother; Pacemaker in his mother. Medications: Prior to Admission medications Medication Sig Start Date End Date Taking? Authorizing Provider albuterol 108 (90 Base) MCG/ACT inhaler INHALE 2 PUFFS EVERY 6 HOURS NEEDED FOR WHEEZING OR SHORTNESS OF BREATH. 08/21/22 09/20/22 Jose M Wiggins MD [facility] 100 MG tablet Take 100 mg by mouth in the morning. 04/09/22 Historical Provider, Eliqubarrington 5 MG tablet TAKE 1 TABLET BY MOUTH IN THE MORNING AND 1 TABLET BEFORE BEDTIMESTART ON 07/30/22 08/22/22 Lucero Delgado MD ergocalciferol (Vitamin D2) 1.25 MG (10715 UT) capsule TAKE 1 CAPSULE BY MOUTH ONCE WEEKLY *DO NOT START BEFORE JUL 25 08/29/22 Lucero Delgado MD folic acid (Folvite) 1 MG tablet Take 1 tablet (1 mg) by mouth in the morning. 07/19/22 07/19/23 Lan Villegas MD magnesium oxide (Mag-Ox) 400 MG tablet Take 1 tablet by mouth in the morning. 04/09/22 Historical Provider, metoprolol succinate XL (Toprol-XL) 100 MG 24 hr tablet Take 1 tablet (100 mg) by mouth in the morning and 1 tablet (100 mg) before bedtime. Do not crush or chew.. 07/30/22 10/28/22 Jessenia Crystal, [employer] montelukast (Singulair) 10 MG tablet TAKE 1 TABLET BY MOUTH EVERY EVENING 08/21/22 Jose M Wiggins MD Multiple Vitamins-Minerals (Therapeutic-M/Lutein) tablet TAKE 1 TABLET BY MOUTH IN THE MORNING, 1 TABLET AT NOON, AND 1 TABLET BEFORE BEDTIME 08/14/22 Jamia Sierra MD rosuvastatin (Crestor) 40 MG tablet Take 1 tablet (40 mg) by mouth Nightly. 07/30/22 07/30/23 PRIYA Perez CNP sacubitril-valsartan (Entresto) 24-26 MG tablet Take 1 tablet by mouth in the morning and 1 tablet before bedtime. 07/30/22 08/29/22 PRIYA Perez CNP sertraline (Zoloft) 100 MG tablet TAKE 1 TABLET BY MOUTH EVERY DAY IN THE MORNING 08/21/22 Jose M Wiggins MD spironolactone (Aldactone) 25 MG tablet Take 1 tablet (25 mg) by mouth Nightly. 07/30/22 PRIYA Perez CNP torsemide (Demadex) 20 MG tablet Take 20 mg by mouth in the morning and 20 mg before bedtime. 07/09/22 Historical Provider, @[email or web address]@ Allergies: Patient has no known allergies. Review of Systems: Review of Systems Constitutional: Positive for fatigue. Respiratory: Positive for cough and shortness of breath. Negative for chest tightness. Cardiovascular: Negative for chest pain, palpitations and leg swelling. Neurological: Positive for weakness. Negative for dizziness, syncope and light-headedness. All other systems reviewed and are negative. VITAL SIGNS:BP 121/74 (BP Location: Left arm, Patient Position: Lying) Pulse 71 Temp 36.6 C (97.9 F) (Oral) Resp 22 Ht 5' 9" (1.753 m) Wt 190 lb (86.2 kg) SpO2 94% BMI 28.06 kg/m @[email or web address]@ @[email or web address]@ 0 Physical Exam Constitutional: Appearance: Normal appearance. HENT: Head: Normocephalic and atraumatic. Nose: Nose normal. Eyes: General: No scleral icterus. Extraocular Movements: Extraocular movements intact. Pupils: Pupils are equal, round, and reactive to light. Neck: Thyroid: No thyromegaly. Vascular: No carotid bruit or JVD. Cardiovascular: Rate and Rhythm: Normal rate and regular rhythm. Pulses: Normal pulses. Heart sounds: Heart sounds are distant. No murmur heard. No gallop. Pulmonary: Effort: Pulmonary effort is normal. Breath sounds: Rhonchi present. No wheezing or rales. Chest: Chest wall: No tenderness. Abdominal: General: Abdomen is flat. There is no distension. Palpations: Abdomen is soft. There is no hepatomegaly, splenomegaly or mass. Musculoskeletal: General: No swelling or tenderness. Normal range of motion. Cervical back: No tenderness. Skin: General: Skin is warm. Neurological: General: No focal deficit present. Mental Status: He is alert and oriented to person, place, and time. Cranial Nerves: Cranial nerves 2-12 are intact. No cranial nerve deficit. Psychiatric: Attention and Perception: Attention normal. Mood and Affect: Mood normal. Speech: Speech normal. Behavior: Behavior normal. Pertinent Labs: CBC: Recent Labs 09/12/22 2155 WBC 9.3 HGB 15.5 PLT 250 BMP: Recent Labs 09/12/22 2155 NA 126* K 3.8 CL 91* CO2 26 BUN 19 CREATININE 0.75 GLUCOSE 151* ABGs: No results found for: PHART, PO2ART, UZH3RIC INR: No results for input(s): INR in the last 72 hours. PRO-BNP: No components found for: NTPROBNP TSH: Lab Results Component Value Date TSH 2.568 07/16/2022 Cardiac Injury Profile: Recent Labs 09/12/22 2155 TROPONINI 0.016 Lipid Profile: No results found for: TRIG, HDL, LDLCALC, CHOL Hemoglobin A1C: No results found for: HGBA1C ECG: See report : @RISRSLT@ EKG: See Report Telemetry Reviewed : Sinus rhythm with ventricular paced Echo: See Report Assessment/Plan: Shortness of breath: Symptoms seem more consistent with COPD this time. I will adjust his heart failure medicines. I will have his device check to make sure he is pacing by ventricularly an appropriate amount. COPD with chronic tobacco abuse Hyponatremia Biventricular ICD Hx of afib. In NSR, anticoagulated Electronically signedby @[email or web address]@ on @TDNR@ at @NOWNR@ documented in this encounter [facility] 09-13-2022 Emergency department Note Pt up walking hallway with physical therapy assistance. Lindsay Martin RN 09/13/22 0909 [facility] 09-13-2022 Emergency department Note Blankets draped over bed rails for seizure precautions. Pt denies any other needs at this time. Pt on lunchroom monitor. Will continue to monitor Brittany Jesus RN 09/13/22 0408 [facility] 09-13-2022 Emergency department Note Pt oxygen desat to 88-90% RA. Pt put on 2L NC, sats now 95% Brittany Jesus RN 09/13/22 0054 [facility] 09-13-2022 Emergency department Note Pt ambulate to restroom. Steady gait Brittany Jesus RN 09/13/22 0014 [facility] 09-12-2022 History and physical note Images from the original note were not included. Medical Teaching Service History & Physical Patient: Krystina Markham : 1955 Acct: [id number] PCP: JAMIA SIERRA MD Admitting Physician: No admitting provider for patient encounter. Admission Date: 09/12/2022 Chief Complaint Patient presents with Shortness of Breath History of Present Illness: 67 y.o. male who presents to [facility] ED c/o SOB since 4 PM 09/12/22. He was sitting at home and states that he was "having a hard time catching his breath" so came into ED. Denies any N/V/C/D/F/palpitations (pacemaker in situ). Satting 94% on 2L. Does not use Oxygen at home. Smokes 1/2 PPD. Drinks 4 beers daily. Denies any recreational drugs. States he takes albuterol and has a nebulizer at home. ASA occasionally for headaches. Past Medical History: Diagnosis Date Alcohol consumption heavy 09/10/2015 Asthma Atrial fibrillation ([facility] ([facility]) CHF (congestive heart failure) ([facility] ([facility]) 01/31/2016 COPD (chronic obstructive pulmonary disease) ([facility]) 09/10/2015 Cor, pulmonale, acute ([facility]) ([facility]) Deep venous thrombosis ([facility]) 02/2016 Depression Hx of blood clots Obesity 09/10/2015 DELORES (obstructive sleep apnea) Pulmonary embolus ([facility]) 6 16 Raynaud phenomenon 09/10/2015 Smoker 09/10/2015 Past Surgical History: Procedure Laterality Date ABDOMINAL SURGERY BRONCHOSCOPY 02/25/2020 BRONCHOSCOPY (HISTORICAL) 02/25/2020 COLONOSCOPY 10/27/[address] CHEST ANGIOGRAM W AND/OR WO IV CONTRAST 07/12/2022 CT CHEST ANGIOGRAM W AND/OR WO IV CONTRAST 07/12/2022 [facility] CT IMAGING FINGER AMPUTATION Left HERNIA REPAIR NOSE SURGERY Social History Socioeconomic History Marital status: Spouse name: Not on file Number of children: Not on file Years of education: Not on file Highest education level: Not on file Occupational History Not on file Tobacco Use Smoking status: Every Day Packs/day: 0.25 Years: 40.00 Pack years: 10.00 Types: Cigarettes Start date: 1972 Smokeless tobacco: Never Substance and Sexual Activity Alcohol use: Yes Alcohol/week: 6.0 - 12.0 standard drinks Types: 6 - 12 Cans of beer per week Drug use: Never Sexual activity: Not on file Other Topics Concern Not on file Social History Narrative Not on file Social Determinants of Health Financial Resource Strain: Not on file Food Insecurity: Not on file Transportation Needs: Not on file Physical Activity: Not on file Stress: Not on file Social Connections: Not on file Intimate Partner Violence: Not on file Housing Stability: Not on file Family History Problem Relation Name Age of Onset Asthma Father defects Father Cancer Father Asthma Sister Heart disease Mother Heart disease Brother Pacemaker Mother defects Sister Cancer Mother Diabetes Mother No current facility-administered medications on file prior to encounter. Current Outpatient Medications on File Prior to Encounter Medication Sig Dispense Refill albuterol 108 (90 Base) MCG/ACT inhaler INHALE 2 PUFFS EVERY 6 HOURS NEEDED FOR WHEEZING OR SHORTNESS OF BREATH. 18 each 2 [facility] B-1 100 MG tablet Take 100 mg by mouth in the morning. Eliquis 5 MG tablet TAKE 1 TABLET BY MOUTH IN THE MORNING AND 1 TABLET BEFORE BEDTIMESTART ON 07/30/22 60 tablet 0 ergocalciferol (Vitamin D2) 1.25 MG (34935 UT) capsule TAKE 1 CAPSULE BY MOUTH ONCE WEEKLY *DO NOT START BEFORE JUL 25 3 capsule 0 folic acid (Folvite) 1 MG tablet Take 1 tablet (1 mg) by mouth in the morning. 30 tablet 11 magnesium oxide (Mag-Ox) 400 MG tablet Take 1 tablet by mouth in the morning. metoprolol succinate XL (Toprol-XL) 100 MG 24 hr tablet Take 1 tablet (100 mg) by mouth in the morning and 1 tablet (100 mg) before bedtime. Do not crush or chew.. 180 tablet 1 montelukast (Singulair) 10 MG tablet TAKE 1 TABLET BY MOUTH EVERY EVENING 30 tablet 2 Multiple Vitamins-Minerals (Therapeutic-M/Lutein) tablet TAKE 1 TABLET BY MOUTH IN THE MORNING, 1 TABLET AT NOON, AND 1 TABLET BEFORE BEDTIME 90 tablet 11 rosuvastatin (Crestor) 40 MG tablet Take 1 tablet (40 mg) by mouth Nightly. 90 tablet 1 sacubitril-valsartan (Entresto) 24-26 MG tablet Take 1 tablet by mouth in the morning and 1 tablet before bedtime. 180 tablet 1 sertraline (Zoloft) 100 MG tablet TAKE 1 TABLET BY MOUTH EVERY DAY IN THE MORNING 30 tablet 2 spironolactone (Aldactone) 25 MG tablet Take 1 tablet (25 mg) by mouth Nightly. 90 tablet 1 torsemide (Demadex) 20 MG tablet Take 20 mg by mouth in the morning and 20 mg before bedtime. Allergies: Patient has no known allergies. Review of Systems Constitutional: Negative for chills and fever. Respiratory: Positive for cough and shortness of breath. Negative for chest tightness and wheezing. Cardiovascular: Negative for chest pain, palpitations and leg swelling. Vitals: Vitals: 09/12/22 2145 01/11/223509/12/228 09/12/22 2308 BP: 121/71 Pulse: 72 79 82 Resp: 20 14 18 Temp: TempSrc: SpO2: 95% 94% 95% Physical Exam Constitutional: Appearance: Normal appearance. HENT: Head: Normocephalic and atraumatic. Nose: No congestion or rhinorrhea. Mouth/Throat: Mouth: Mucous membranes are moist. Pharynx: No oropharyngeal exudate or posterior oropharyngeal erythema. Eyes: Extraocular Movements: Extraocular movements intact. Conjunctiva/sclera: Conjunctivae normal. Pupils: Pupils are equal, round, and reactive to light. Neck: Vascular: No carotid bruit. Cardiovascular: Rate and Rhythm: Normal rate and regular rhythm. Heart sounds: No murmur heard. No friction rub. No gallop. Comments: Biventricular pacer in situ Pulmonary: Effort: Pulmonary effort is normal. No respiratory distress. Breath sounds: Wheezing present. No rhonchi or rales. Abdominal: General: Abdomen is flat. Bowel sounds are normal. There is no distension. Palpations: Abdomen is soft. Tenderness: There is no abdominal tenderness. There is no guarding or rebound. Comments: Protuberant abdomen Musculoskeletal: Cervical back: Normal range of motion and neck supple. Right lower leg: No edema. Left lower leg: No edema. Skin: General: Skin is warm and dry. Capillary Refill: Capillary refill takes less than 2 seconds. Neurological: General: No focal deficit present. Mental Status: He is alert and oriented to person, place, and time. Mental status is at baseline. Psychiatric: Mood and Affect: Mood normal. Behavior: Behavior normal. Thought Content: Thought content normal. Judgment: Judgment normal. Labs: Results for orders placed or performed during the hospital encounter of 09/12/22 Basic metabolic panel Result Value Ref Range SODIUM 126 (L) 135 - 145 mmol/L POTASSIUM 3.8 3.5 - 5.1 mmol/L CHLORIDE 91 (L) 98 - 107 mmol/L CARBON DIOXIDE 26 22 - 30 mmol/L UREA NITROGEN 19 9 - 20 mg/dL CREATININE 0.75 0.66 - 1.25 mg/dL GLUCOSE 151 (H) 70 - 100 mg/dL CALCIUM 9.7 8.4 - 10.4 mg/dL ANION GAP 9 3 - 13 mmol/L eGFR >90.0 >60.0 mL/min/1.73m*2 CBC auto differential Result Value Ref Range Auto WBC 9.3 3.6 - 10.7 10*3/uL RBC 4.81 4.40 - 5.90 10*6/uL Hemoglobin 15.5 13.0 - 18.0 g/dL Hematocrit 44.6 40.0 - 52.0 % MCV 92.8 80.0 - 98.0 fL MCH 32.2 26.0 - 34.0 pg MCHC 34.7 32.0 - 36.0 % RDW 14.2 11.5 - 14.5 % Platelets 250 140 - 440 10*3/uL MPV 7.0 (L) 7.4 - 12.4 fL nRBC 0.0 0.0 - 2.0 /100 WBCs Neutrophils Relative 72.9 40.0 - 80.0 % Lymphocytes Relative 14.2 (L) 20.0 - 40.0 % Monocytes Relative 10.1 (H) 2.0 - 10.0 % Eosinophils Relative 1.4 1.0 - 6.0 % Basophils Relative 1.4 0.0 - 2.0 % Neutrophils Absolute 6.8 1.8 - 7.0 10*3/uL Lymphocytes Absolute 1.3 1.0 - 4.3 10*3/uL Monocytes Absolute 0.9 (H) 0.0 - 0.8 10*3/uL Eosinophils Absolute 0.1 0.0 - 0.5 10*3/uL Basophils Absolute 0.1 0.0 - 0.2 10*3/uL Troponin I Result Value Ref Range TROPONIN I 0.016 0.000 - 0.034 ng/mL ECG 12 lead Result Value Ref Range Heart Rate 72 bpm QRSD Interval 196 ms QT Interval 564 ms QTC Interval 617 ms P [place] 0 degrees QRS [place] -88 degrees T Wave [place] degrees VA Interval 61 ms POCT venous blood gas Result Value Ref Range pH, Venous 7.422 7.330 - 7.430 pH pCO2, Venous 42.2 40 - 55 mm Hg pO2, Venous 31.5 30.0 - 50.0 mm Hg TCO2, Venous 28.8 (H) 24.0 - 28.0 mmol/L HCO3, Venous 27.5 (H) 23.0 - 27.0 mmol/L Base Excess, Venous 2.6 -3 - 3 mmol/L SO2, Venous 61.8 60.0 - 80.0 % FIO2 21 Radiology review: ECG 12 lead Ventricular-paced complexes Biventricular paced rhythm Electronically Signed On 09-12-2022 23:12:30 EST by Paola Gaffney XR chest 1 view Narrative: [id number] Exam Date/Time: 09/12/2022 21:35 Procedure: XR CHEST 1 VIEW Ordering Provider: GAFFNEY JAKLYN Reason For Exam: CHEST PORTABLE CLINICAL INDICATION: DYSPNEA TECHNIQUE: Portable chest x-ray(s). COMPARISON: None. FINDINGS: Left-sided cardiac device again noted and mild cardiomegaly, stable. Lungs are hyperinflated. No significant vascular congestion. No focal consolidation or apparent pneumothorax. Bilateral rotator cuff insufficiency and multiple, old right rib fracture deformities again noted. Impression: 1. Stable examination. No acute findings. Report Dictated on Electronically Signed By: Alirio Gamboa Electronically Signed Date/Time: 09/12/2022 9:40 PM EST EKG: Biventricular paced complexes and rhythm ED medications: Medications ipratropium-albuterol (Duo-Neb) 0.5-2.5 mg/3 mL nebulizer solution 3 mL (3 mL Nebulization Given 09/12/222307) sodium chloride 0.9 % bolus 1,000 mL (1,000 mL IntraVENous New Bag 09/12/222311) ipratropium-albuterol (Duo-Neb) 0.5-2.5 mg/3 mL nebulizer solution 3 mL (3 mL Nebulization Given 09/12/222144) albuterol (2.5 MG/3ML) 0.083% nebulizer solution 2.5 mg (2.5 mg Nebulization Given 09/12/222144) albuterol (2.5 MG/3ML) 0.083% nebulizer solution 2.5 mg (2.5 mg Nebulization Given 09/12/222144) methylPREDNISolone sodium succinate (PF) (SOLU-Medrol) injection 125 mg (125 mg IntraVENous Given 09/12/222201) ED COURSE: As above ASSESSMENT/PLAN: Dyspnea 2/2 COPDe likely due to medication noncompliance WBC WNL, satting 94% on 2L. - Admit to F - Duonebs q4h until stable, then PRN - Cont. home inhalers: - Singulair PO 10 mg nightly - POx checks - Supplemental 02 with goal of 88-92%, wean as tolerated - Prednisone PO 40 mg - Procal pending - Regular diet - PT/OT to evaluate Afib HFrEF ICD in situ Medication noncompliance Follows with Cardio but has not been showing - Cardiology consult - Repeat EKG - BNP - Obtain Mg/Phos - Cont. home meds: - Toprol XL 100 mg daily - Crestor 40 mg nightly - Spironolactone 25 mg nightly - Entresto 24-26 mg BID - Eliquis 5 mg BID - Torsemide 20 mg daily Chronic hyponatremia likely 2/2 to beer potomania 124-126 baseline over the last year. S/p NSB. - Continue to monitor Alcohol abuse Endorses 4 beers a day - CIWA - Ethanol level - MAT panel - Cont. home thiamine, folate and MV Long QT QTc 617 on admission. Biventricular pacer in situ. - Avoid QT prolonging drugs Depression - HOLD home Zoloft 100 mg d/t prolonged QT Misc - Vit D 5000 units - Mag-Ox 400 mg FEN/GI/DVT: IVF: None Electrolytes: Monitor and replace per protocols Diet: Cardiac GI PPX: No DVT Prophylaxis: Cont. Home Eliquis 5 mg BID CODE STATUS: Full Problem list completed - Yes Case discussed with: Dr. Carter (PGY-2) and Molina (Attending). Pedro Subramanian MD Family Medicine, PGY-1 09/13/22 1:15 AM Associated attestation - Siria Dumont MD - 09/13/2022 7:26 AM EST I have reviewed the documented history, ROS, physical exam, and decision making and agree. [facility] 09-12-2022 History and physical note Images from the original note were not included. Medical Teaching Service History & Physical Patient: Krystina Markham : 1955 Acct: [id number] PCP: JAMIA SIERRA MD Admitting Physician: No admitting provider for patient encounter. Admission Date: 09/12/2022 Chief Complaint Patient presents with Shortness of Breath History of Present Illness: 67 y.o. male who presents to [facility] ED c/o SOB since 4 PM 09/12/22. He was sitting at home and states that he was "having a hard time catching his breath" so came into ED. Denies any N/V/C/D/F/palpitations (pacemaker in situ). Satting 94% on 2L. Does not use Oxygen at home. Smokes 1/2 PPD. Drinks 4 beers daily. Denies any recreational drugs. States he takes albuterol and has a nebulizer at home. ASA occasionally for headaches. Past Medical History: Diagnosis Date Alcohol consumption heavy 09/10/2015 Asthma Atrial fibrillation ([facility]) ([facility]) CHF (congestive heart failure) ([facility]) ([facility]) 01/31/2016 COPD (chronic obstructive pulmonary disease) ([facility]) 09/10/2015 Cor, pulmonale, acute ([facility]) ([facility]) Deep venous thrombosis ([facility]) 02/2016 Depression Hx of blood clots Obesity 09/10/2015 DELORES (obstructive sleep apnea) Pulmonary embolus ([facility]) 6 16 Raynaud phenomenon 09/10/2015 Smoker 09/10/2015 Past Surgical History: Procedure Laterality Date ABDOMINAL SURGERY BRONCHOSCOPY 02/25/2020 BRONCHOSCOPY (HISTORICAL) 02/25/2020 COLONOSCOPY 10/27/[address] CHEST ANGIOGRAM W AND/OR WO IV CONTRAST 07/12/2022 CT CHEST ANGIOGRAM W AND/OR WO IV CONTRAST 07/12/2022 [facility] CT IMAGING FINGER AMPUTATION Left HERNIA REPAIR NOSE SURGERY Social History Socioeconomic History Marital status: Spouse name: Not on file Number of children: Not on file Years of education: Not on file Highest education level: Not on file Occupational History Not on file Tobacco Use Smoking status: Every Day Packs/day: 0.25 Years: 40.00 Pack years: 10.00 Types: Cigarettes Start date: 1972 Smokeless tobacco: Never Substance and Sexual Activity Alcohol use: Yes Alcohol/week: 6.0 - 12.0 standard drinks Types: 6 - 12 Cans of beer per week Drug use: Never Sexual activity: Not on file Other Topics Concern Not on file Social History Narrative Not on file Social Determinants of Health Financial Resource Strain: Not on file Food Insecurity: Not on file Transportation Needs: Not on file Physical Activity: Not on file Stress: Not on file Social Connections: Not on file Intimate Partner Violence: Not on file Housing Stability: Not on file Family History Problem Relation Name Age of Onset Asthma Father defects Father Cancer Father Asthma Sister Heart disease Mother Heart disease Brother Pacemaker Mother defects Sister Cancer Mother Diabetes Mother No current facility-administered medications on file prior to encounter. Current Outpatient Medications on File Prior to Encounter Medication Sig Dispense Refill albuterol 108 (90 Base) MCG/ACT inhaler INHALE 2 PUFFS EVERY 6 HOURS NEEDED FOR WHEEZING OR SHORTNESS OF BREATH. 18 each 2 [facility] B-1 100 MG tablet Take 100 mg by mouth in the morning. Eliquis 5 MG tablet TAKE 1 TABLET BY MOUTH IN THE MORNING AND 1 TABLET BEFORE BEDTIMESTART ON 07/30/22 60 tablet 0 ergocalciferol (Vitamin D2) 1.25 MG (96112 UT) capsule TAKE 1 CAPSULE BY MOUTH ONCE WEEKLY *DO NOT START BEFORE JUL 25 3 capsule 0 folic acid (Folvite) 1 MG tablet Take 1 tablet (1 mg) by mouth in the morning. 30 tablet 11 magnesium oxide (Mag-Ox) 400 MG tablet Take 1 tablet by mouth in the morning. metoprolol succinate XL (Toprol-XL) 100 MG 24 hr tablet Take 1 tablet (100 mg) by mouth in the morning and 1 tablet (100 mg) before bedtime. Do not crush or chew.. 180 tablet 1 montelukast (Singulair) 10 MG tablet TAKE 1 TABLET BY MOUTH EVERY EVENING 30 tablet 2 Multiple Vitamins-Minerals (Therapeutic-M/Lutein) tablet TAKE 1 TABLET BY MOUTH IN THE MORNING, 1 TABLET AT NOON, AND 1 TABLET BEFORE BEDTIME 90 tablet 11 rosuvastatin (Crestor) 40 MG tablet Take 1 tablet (40 mg) by mouth Nightly. 90 tablet 1 sacubitril-valsartan (Entresto) 24-26 MG tablet Take 1 tablet by mouth in the morning and 1 tablet before bedtime. 180 tablet 1 sertraline (Zoloft) 100 MG tablet TAKE 1 TABLET BY MOUTH EVERY DAY IN THE MORNING 30 tablet 2 spironolactone (Aldactone) 25 MG tablet Take 1 tablet (25 mg) by mouth Nightly. 90 tablet 1 torsemide (Demadex) 20 MG tablet Take 20 mg by mouth in the morning and 20 mg before bedtime. Allergies: Patient has no known allergies. Review of Systems Constitutional: Negative for chills and fever. Respiratory: Positive for cough and shortness of breath. Negative for chest tightness and wheezing. Cardiovascular: Negative for chest pain, palpitations and leg swelling. Vitals: Vitals: 09/12/22 2145 09/12/22 2236 09/12/22 2238 09/12/22 2308 BP: 121/71 Pulse: 72 79 82 Resp: 20 14 18 Temp: TempSrc: SpO2: 95% 94% 95% Physical Exam Constitutional: Appearance: Normal appearance. HENT: Head: Normocephalic and atraumatic. Nose: No congestion or rhinorrhea. Mouth/Throat: Mouth: Mucous membranes are moist. Pharynx: No oropharyngeal exudate or posterior oropharyngeal erythema. Eyes: Extraocular Movements: Extraocular movements intact. Conjunctiva/sclera: Conjunctivae normal. Pupils: Pupils are equal, round, and reactive to light. Neck: Vascular: No carotid bruit. Cardiovascular: Rate and Rhythm: Normal rate and regular rhythm. Heart sounds: No murmur heard. No friction rub. No gallop. Comments: Biventricular pacer in situ Pulmonary: Effort: Pulmonary effort is normal. No respiratory distress. Breath sounds: Wheezing present. No rhonchi or rales. Abdominal: General: Abdomen is flat. Bowel sounds are normal. There is no distension. Palpations: Abdomen is soft. Tenderness: There is no abdominal tenderness. There is no guarding or rebound. Comments: Protuberant abdomen Musculoskeletal: Cervical back: Normal range of motion and neck supple. Right lower leg: No edema. Left lower leg: No edema. Skin: General: Skin is warm and dry. Capillary Refill: Capillary refill takes less than 2 seconds. Neurological: General: No focal deficit present. Mental Status: He is alert and oriented to person, place, and time. Mental status is at baseline. Psychiatric: Mood and Affect: Mood normal. Behavior: Behavior normal. Thought Content: Thought content normal. Judgment: Judgment normal. Labs: Results for orders placed or performed during the hospital encounter of 09/12/22 Basic metabolic panel Result Value Ref Range SODIUM 126 (L) 135 - 145 mmol/L POTASSIUM 3.8 3.5 - 5.1 mmol/L CHLORIDE 91 (L) 98 - 107 mmol/L CARBON DIOXIDE 26 22 - 30 mmol/L UREA NITROGEN 19 9 - 20 mg/dL CREATININE 0.75 0.66 - 1.25 mg/dL GLUCOSE 151 (H) 70 - 100 mg/dL CALCIUM 9.7 8.4 - 10.4 mg/dL ANION GAP 9 3 - 13 mmol/L eGFR >90.0 >60.0 mL/min/1.73m*2 CBC auto differential Result Value Ref Range Auto WBC 9.3 3.6 - 10.7 10*3/uL RBC 4.81 4.40 - 5.90 10*6/uL Hemoglobin 15.5 13.0 - 18.0 g/dL Hematocrit 44.6 40.0 - 52.0 % MCV 92.8 80.0 - 98.0 fL MCH 32.2 26.0 - 34.0 pg MCHC 34.7 32.0 - 36.0 % RDW 14.2 11.5 - 14.5 % Platelets 250 140 - 440 10*3/uL MPV 7.0 (L) 7.4 - 12.4 fL nRBC 0.0 0.0 - 2.0 /100 WBCs Neutrophils Relative 72.9 40.0 - 80.0 % Lymphocytes Relative 14.2 (L) 20.0 - 40.0 % Monocytes Relative 10.1 (H) 2.0 - 10.0 % Eosinophils Relative 1.4 1.0 - 6.0 % Basophils Relative 1.4 0.0 - 2.0 % Neutrophils Absolute 6.8 1.8 - 7.0 10*3/uL Lymphocytes Absolute 1.3 1.0 - 4.3 10*3/uL Monocytes Absolute 0.9 (H) 0.0 - 0.8 10*3/uL Eosinophils Absolute 0.1 0.0 - 0.5 10*3/uL Basophils Absolute 0.1 0.0 - 0.2 10*3/uL Troponin I Result Value Ref Range TROPONIN I 0.016 0.000 - 0.034 ng/mL ECG 12 lead Result Value Ref Range Heart Rate 72 bpm QRSD Interval 196 ms QT Interval 564 ms QTC Interval 617 ms P [place] 0 degrees QRS [place] -88 degrees T Wave [place] degrees [place] Interval 61 ms POCT venous blood gas Result Value Ref Range pH, Venous 7.422 7.330 - 7.430 pH pCO2, Venous 42.2 40 - 55 mm Hg pO2, Venous 31.5 30.0 - 50.0 mm Hg TCO2, Venous 28.8 (H) 24.0 - 28.0 mmol/L HCO3, Venous 27.5 (H) 23.0 - 27.0 mmol/L Base Excess, Venous 2.6 -3 - 3 mmol/L SO2, Venous 61.8 60.0 - 80.0 % FIO2 21 Radiology review: ECG 12 lead Ventricular-paced complexes Biventricular paced rhythm Electronically Signed On 09-12-2022 23:12:30 EST by Paola Gaffney XR chest 1 view Narrative: [id number] Exam Date/Time: 09/12/2022 21:35 Procedure: XR CHEST 1 VIEW Ordering Provider: GAFFNEY JAKLYN Reason For Exam: CHEST PORTABLE CLINICAL INDICATION: DYSPNEA TECHNIQUE: Portable chest x-ray(s). COMPARISON: None. FINDINGS: Left-sided cardiac device again noted and mild cardiomegaly, stable. Lungs are hyperinflated. No significant vascular congestion. No focal consolidation or apparent pneumothorax. Bilateral rotator cuff insufficiency and multiple, old right rib fracture deformities again noted. Impression: 1. Stable examination. No acute findings. Report Dictated on Electronically Signed By: Alirio Gamboa Electronically Signed Date/Time: 09/12/2022 9:40 PM EST EKG: Biventricular paced complexes and rhythm ED medications: Medications ipratropium-albuterol (Duo-Neb) 0.5-2.5 mg/3 mL nebulizer solution 3 mL (3 mL Nebulization Given 09/12/22 2308) sodium chloride 0.9 % bolus 1,000 mL (1,000 mL IntraVENous New Bag 09/12/22 2312) ipratropium-albuterol (Duo-Neb) 0.5-2.5 mg/3 mL nebulizer solution 3 mL (3 mL Nebulization Given 09/12/22 2145) albuterol (2.5 MG/3ML) 0.083% nebulizer solution 2.5 mg (2.5 mg Nebulization Given 09/12/222144) albuterol (2.5 MG/3ML) 0.083% nebulizer solution 2.5 mg (2.5 mg Nebulization Given 09/12/222144) methylPREDNISolone sodium succinate (PF) (SOLU-Medrol) injection 125 mg (125 mg IntraVENous Given 09/12/222201) ED COURSE: As above ASSESSMENT/PLAN: Dyspnea 2/2 COPDe likely due to medication noncompliance WBC WNL, satting 94% on 2L. - Admit to [facility] - Duonebs q4h until stable, then PRN - Cont. home inhalers: - Singulair PO 10 mg nightly - POx checks - Supplemental 02 with goal of 88-92%, wean as tolerated - Prednisone PO 40 mg - Procal pending - Regular diet - PT/OT to evaluate Afib HFrEF ICD in situ Medication noncompliance Follows with Cardio but has not been showing - Cardiology consult - Repeat EKG - BNP - Obtain Mg/Phos - Cont. home meds: - Toprol XL 100 mg daily - Crestor 40 mg nightly - Spironolactone 25 mg nightly - Entresto 24-26 mg BID - Eliquis 5 mg BID - Torsemide 20 mg daily Chronic hyponatremia likely 2/2 to beer potomania 124-126 baseline over the last year. S/p NSB. - Continue to monitor Alcohol abuse Endorses 4 beers a day - CIWA - Ethanol level - MAT panel - Cont. home thiamine, folate and MV Long QT QTc 617 on admission. Biventricular pacer in situ. - Avoid QT prolonging drugs Depression - HOLD home Zoloft 100 mg d/t prolonged QT Misc - Vit D 5000 units - Mag-Ox 400 mg FEN/GI/DVT: IVF: None Electrolytes: Monitor and replace per protocols Diet: Cardiac GI PPX: No DVT Prophylaxis: Cont. Home Eliquis 5 mg BID CODE STATUS: Full Problem list completed - Yes Case discussed with: Dr. Carter (PGY-2) and Molina (Attending). Pedro Subramanian MD Family Medicine, PGY-1 09/13/22 1:15 AM Associated attestation - Siria Dumont MD - 09/13/2022 7:26 AM EST I have reviewed the documented history, ROS, physical exam, and decision making and agree. documented in this encounter [facility] 09-12-2022 Emergency department Note RT called for breathing tx Brittany Jesus RN 09/12/22 9192 [facility] 09-12-2022 Emergency department Note RT called for breathing txs, Xray at bedside Brittany Jesus RN 09/12/222128 [facility] 09-12-2022 Emergency department Triage note Patient presents to ED c/o shortness of breath x1 day. Patient states he has chronic bronchitis and has been using his inhalers with little relief. [facility] 09-12-2022 Physician Emergency department Note Emergency Department Encounter [facility] ED Patient: Krystina Markham : 1955 Date of Evaluation: 09/12/2022 ED Supervising Physician: Tiffanie Gaffney DO I independently examined and evaluated Krystina Markham. This will serve as my Supervisory note as the director of institutional giving of record and shared attestation. I did perform a substantive portion of the visit including all aspects of the Medical Decision Making. I wore appropriate PPE for the entirety of this encounter. In brief, Krystina Markham is a 67 y.o. male with past medical history of COPD, A. fib, heart failure with reduced ejection fraction status post ICD that presents to the emergency department for dyspnea. Patient reports dyspnea that has been worsening over the past couple of days with associated wheezing and nonproductive cough. Patient denies chest pain, fever/chills, lower extremity swelling. Patient reports he is compliant with all his medications. Focused exam: Gen: NAD HEENT: Head atraumatic. Eyes no discharge, nonicteric and non injected Neck: supple Heart: RRR, no murmur Lungs: Diffuse end expiratory wheezing Abd: soft, non distended and no tenderness to palpation Extremities: 2+ radial and DP. Cap refill normal. No edema. Full range of motion of all 4 extremities Neuro: A&Ox3. Strength 5/5 in bilateral UE and LE bilaterally. Sensation to light touch intact in bilateral UE and LE. Skin: no rash or lesions to exposed skin Psych: normal affect Brief ED course/MDM: 67 y.o. male with past medical history of COPD, A. fib, heart failure with reduced ejection fraction status post ICD that presents to the emergency department for dyspnea. Upon arrival to the ED, patient afebrile, hemodynamically stable, and saturating well on room air. Patient with increased work of breathing and diffuse and expiratory wheezing. Improved with DuoNeb and Solu-Medrol. EKG with a ventricular paced rhythm, not meeting scar Bosa criteria. VBG with no retention or acidosis. Patient found to be hyponatremic at 126. Troponin negative. Plan for admission to medicine for further management of COPD exacerbation. X-ray with no evidence of pneumonia, or pulmonary edema, or wili mediastinum. Pt admitted to medicine for further management. Total critical care time today provided was at least 45 minutes. This excludes seperately billable procedure. Critical care time provided for COPD exacerbation that required close evaluation and/or intervention with concern for patient decompensation. All diagnostic, treatment, and disposition decisions were made by myself in conjunction with the ISABELLE. For all further details of the patient's emergency department visit, please see their documentation. (Comment: Please note this report has been produced using speech recognition software and may contain errors related to that system including errors in grammar, punctuation, and spelling, as well as words and phrases that may be inappropriate. If there are any questions or concerns please feel free to contact the dictating provider for clarification.) Tiffanie Gaffney DO [facility] [place] Tiffanie Gaffney DO 09/12/22 [address] [place] Phone: 09-12-2022 Telephone encounter Note Cert mail env returned marked "unclaimed". [facility] [employer] 09-12-2022 Miscellaneous Notes Cert mail env returned marked "unclaimed". OK that's fine. I did not see it documented in any Epic encounters that a letter was indeed sent but I see it in the letter tab. No need to repeat. I assume we never got it back signed or unclaimed? A cert letter was sent out in Dec. Would you like another one sent? Pt missed remote 07/03/22, Our office attempted to reach pt and LM. Office attempted to contact pt again 08/10/22 and LM. According to [facility] website, transmitter has not made connection since 04/21/22, Bessie ackerman send certified letter. documented in this encounter [facility] [employer] 09-12-2022 Telephone encounter Note OK that's fine. I did not see it documented in any Epic encounters that a letter was indeed sent but I see it in the letter tab. No need to repeat. I assume we never got it back signed or unclaimed? [facility] [employer] [facility] 09-12-2022 Telephone encounter Note A cert letter was sent out in Dec. Would you like another one sent? [employer] 09-12-2022 Telephone encounter Note Pt missed remote 07/03/22, Our office attempted to reach pt and LM. Office attempted to contact pt again 08/10/22 and LM. According to [facility] website, transmitter has not made connection since 04/21/22, Bessie ackerman send certified letter. [facility] 08-10-2022 History of Present illness Narrative Pt asked if they have been to specialist,been in ER /hospitalized or had testing since last visit. No Patient was able to ambulate safely to the examination room. Provider was not notified of possible fall risk Images from the original note were not included. [facility] [address] [facility] [address] Dept: [phone] Dept Loc: [phone] Visit type: Established patient Reason for Visit: Letter for School/Work (Needs work letter for calling off one day) Assessment and Plan Problem List Items Addressed This Visit None Visit Diagnoses Generalized abdominal pain - Primary -Patient's symptoms have resolved. Denies any symptoms at this time. Work note was given to patient at visit today. Follow up if symptoms worsen or fail to improve. current treatment plan is effective, no change in therapy Subjective HPI This is a 67-year-old male who presents to the clinic today for a work excuse note because he missed work on Saturday. 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 He says he feels all better. Denies nausea, vomiting,, diarrhea, constipation, blood in stool, dark stool, shortness of breath, chest pain. It was noted in previous telephone call to our office that he had bloody diarrhea. That episode actually occurred a month ago, and resolved within 3 days. Review of Systems Constitutional: Negative for activity change and appetite change. Respiratory: Negative for chest tightness and shortness of breath. Cardiovascular: Negative for chest pain. Gastrointestinal: Negative for abdominal distention, abdominal pain, anal bleeding, blood in stool, constipation, diarrhea, nausea and vomiting. No Known Allergies Outpatient Medications Prior to Visit Medication Sig Dispense Refill albuterol 108 (90 Base) MCG/ACT inhaler Inhale 2 puffs every 6 hours as needed for wheezing or shortness of breath. 18 g 0 [facility] B-1 100 MG tablet Take 100 mg by mouth in the morning. Eliquis 5 MG tablet Take 1 tablet (5 mg) by mouth in the morning and 1 tablet (5 mg) before bedtime. Do not start before July 30, 2022. 60 tablet 0 ergocalciferol (Vitamin D2) 1.25 MG (51875 UT) capsule TAKE 1 CAPSULE BY MOUTH ONCE WEEKLY *DO NOT START BEFORE JUL 25 3 capsule 0 folic acid (Folvite) 1 MG tablet Take 1 tablet (1 mg) by mouth in the morning. 30 tablet 11 magnesium oxide (Mag-Ox) 400 MG tablet Take 1 tablet by mouth in the morning. metoprolol succinate XL (Toprol-XL) 100 MG 24 hr tablet Take 1 tablet (100 mg) by mouth in the morning and 1 tablet (100 mg) before bedtime. Do not crush or chew.. 180 tablet 1 montelukast (Singulair) 10 MG tablet Take 1 tablet (10 mg) by mouth every evening. 30 tablet 0 rosuvastatin (Crestor) 40 MG tablet Take 1 tablet (40 mg) by mouth Nightly. 90 tablet 1 sacubitril-valsartan (Entresto) 24-26 MG tablet Take 1 tablet by mouth in the morning and 1 tablet before bedtime. 180 tablet 1 sertraline (Zoloft) 100 MG tablet Take 1 tablet (100 mg) by mouth in the morning. 30 tablet 0 spironolactone (Aldactone) 25 MG tablet Take 1 tablet (25 mg) by mouth Nightly. 90 tablet 1 therapeutic multivitamin-minerals (Theragran-M) tablet Take 1 tablet by mouth in the morning and 1 tablet at noon and 1 tablet before bedtime. 90 tablet 11 torsemide (Demadex) 20 MG tablet Take 20 mg by mouth in the morning and 20 mg before bedtime. No facility-administered medications prior to visit. Patient Active Problem List Diagnosis Date Noted Alcohol abuse 07/28/2022 Priority: Medium Presence of implantable cardioverter-defibrillator (ICD) 07/19/2022 Priority: Medium Chest pain, unspecified type 07/17/2022 Priority: Medium Hypochloremia 07/17/2022 Priority: Medium Tobacco abuse 07/17/2022 Priority: Medium HFrEF (heart failure with reduced ejection fraction) ([facility] ([facility]) 07/17/2022 Overview Note: EF 20% in 2019 repeat 07/24. Has icd pacer. Past apical mural thrombus 2019 -on anticoag Paroxysmal atrial fibrillation ([facility]) ([facility]) 08/25/2021 History of rib fracture 08/25/2021 Overview Note: Multiple left side 2020 Hyponatremia 08/25/2021 Overview Note: Chronic. Hypotonic serum and urine. On diuretic. Cortisol normal. Essential hypertension 08/25/2021 COPD (chronic obstructive pulmonary disease) (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) 04/10/2017 Cor pulmonale, acute ([facility]) ([facility]) 02/01/2016 Raynaud phenomenon 09/10/2015 Social History Tobacco Use Smoking status: Every Day Packs/day: 0.25 Years: 40.00 Pack years: 10.00 Types: Cigarettes Start date: 1972 Smokeless tobacco: Never Substance Use Topics Alcohol use: Yes Alcohol/week: 6.0 - 12.0 standard drinks Types: 6 - 12 Cans of beer per week Family History Problem Relation Name Age of Onset Asthma Father defects Father Cancer Father Asthma Sister Heart disease Mother Heart disease Brother Pacemaker Mother defects Sister Cancer Mother Diabetes Mother Objective BP 116/69 Pulse 70 Ht 5' 9" (1.753 m) Wt 191 lb 8 oz (86.9 kg) BMI 28.28 kg/m Physical Exam Vitals reviewed. Constitutional: General: He is not in acute distress. HENT: Head: Normocephalic and atraumatic. Right Ear: External ear normal. Left Ear: External ear normal. Nose: No congestion or rhinorrhea. Mouth/Throat: Mouth: Mucous membranes are moist. Eyes: General: Right eye: No discharge. Left eye: No discharge. Conjunctiva/sclera: Conjunctivae normal. Cardiovascular: Rate and Rhythm: Normal rate and regular rhythm. Heart sounds: No murmur heard. No friction rub. No gallop. Pulmonary: Effort: No respiratory distress. Breath sounds: Normal breath sounds. No wheezing, rhonchi or rales. Abdominal: General: Bowel sounds are normal. There is no distension. Palpations: Abdomen is soft. Tenderness: There is no abdominal tenderness. Musculoskeletal: Cervical back: Neck supple. Skin: General: Skin is warm and dry. Neurological: Mental Status: He is alert. Gait: Gait normal. Data Reviewed and Summarized DIXIE CHRISTINE MD INDIRECT SUPERVISION THIS SERVICE IS TO BE BILLED UNDER THE PRIMARY CARE EXCEPTION (MODIFIER -GE) During or immediately after this visit, I discussed this case with the treating resident. Our discussion included the history obtained by the resident, the resident's exam findings, and the resident's treatment plan. The resident's note reflects the information we discussed, and I agree with the resident's assessment and treatment plan. documented in this encounter [facility] 08-25-2021 Note Medical Teaching Ser vice Discharge Summary Patient: Krystina Markham : 1955 Acct: [id number] PCP: JAMIA SIERRA MD Admitting Physician: Eunice Pritchett MD Admission Date: 08/23/2021 Discharge Date: 08/25/2021 Visit Status: Admission Code Status: Full Code Admission Diagnosis: Hyponatremia [E87.1] Chest pain [R07.9] Chest pain, unspecified type [R07.9] Discharge Diagnoses: Active Problems: COPD (chronic obstructive pulmonary disease) ([facility]) Alcohol consumption heavy Obesity Essential hypertension Paroxysmal atrial fibrillation ([facility]) Chronic systolic congestive heart failure ([facility]) Hyponatremia Other pneumothorax Multiple fractures of ribs, left side, initial encounter for open fracture Resolved Problems: Chest pain Patient Active Problem List Diagnosis Date Noted ? Other pneumothorax 08/25/2021 Small L apical ? Multiple fractures of ribs, left side, initial encounter for open fracture 08/25/2021 ? Hyponatremia 08/23/2021 ? 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) 06/30/2021 ? Chronic systolic congestive heart failure ([facility]) 07/01/2020 ? Paroxysmal atrial fibrillation ([facility]) 04/06/2020 ? Apical mural thrombus 04/06/2020 ? History of adenomatous polyp of colon 11/18/2019 ? Diverticulosis of large intestine without diverticulitis ? Lesion of colon ? First degree hemorrhoids ? Osteoporosis 10/07/2019 ? Compression fracture of thoracic vertebra with routine healing 10/07/2019 ? Essential hypertension 07/23/2018 ? Venous stasis dermatitis of left lower extremity 07/17/2017 ? Depression 04/10/2017 ? Cor pulmonale, acute ([facility]) 02/01/2016 ? CHF (congestive heart failure) ([facility]) 01/31/2016 ? Raynaud phenomenon 09/10/2015 ? COPD (chronic obstructive pulmonary disease) ([facility]) 09/10/2015 ? Alcohol consumption heavy 09/10/2015 ? Obesity 09/10/2015 HOSPITAL COURSE: 66 y.o. 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 His pain was addressed with NG, morphine. His EKG initially looked like A. fib with VVI pacing but next day he seems to have more of an AV sequentially paced rhythm on telemetry , cardio consulted nuclear study that showed no acute ischemic changes. At admission labs showed hyponatremia, chart reviewed and showed that he has chronic mild hyponatremia, has a history of active EtOH abuse, on chronic diuretics for heart failure. During admission his diuretics were held, and restarted at discharge, The recommendation is to repeat BMP in 1 week to monitor hyponatremia. Has history of abnormal CT chest but Did have bronch in 2019 that showed anatomic changes with no apparent malignancy or infection, fall were consulted and did CAT scan that showed no new finding and recommended follow-up CAT scan, was found to have small left apical pneumothorax, repeated chest x-ray showed no change, and the recommendation was to follow-up as an outpatient chest x-ray in 1 week Patient was discharged home in stable condition. Significant Medication Changes: none SIGNIFICANT DIAGNOSTIC STUDIES: ? Radiology review: XR CHEST PORTABLE FINDINGS: The heart is enlarged. The mediastinum is unremarkable. Left permanent pacemaker is noted. Accentuated reticular opacities noted throughout the lungs. There is ill-defined increased density in the left lung base obscuring the hemidiaphragm, probably atelectasis. No other consolidation is noted on the right. The right costophrenic angle is sharp but the left is obscured. Multiple old right rib fractures are noted and there is osteopenia. Superior subluxation of the left and right humerus relative to the left and right glenoid likely correspond to chronic rotator cuff tears. IMPRESSION: 1. Opacity at the left lung base, probably atelectasis 2. Chronic obstructive pulmonary disease ? EKG: Ventricular paced rhythm CT CHEST WO CONTRAST IMPRESSION: Small anterior basilar pneumothorax along the left lower lobe. NM Cardiac Stress Test Nuclear Imaging Summary: 1. Probably normal myocardial perfuison after pharmacologic vasodilation. A basal and mid inferior-lateral reversible perfusion defect is likely due to diaphragmatic attentuation. 2. Baseline ECG: Ventricular paced rhythm. 3. Stress ECG conclusions: No stress induced ECG changes suggestive of ischemia. 4. Gated SPECT: The left ventricular end-diastolic volume is 202 ml. The left ventricular end-systolic volume is 127 ml. The calculated left ventricular ejection fraction post stress is 34%. LV global systolic function is moderately depressed. 5. Low risk/extent of ischemia. 6. Left ventricular systolic function is depressed. Consulta (more content not included)... [facility] Evaluation note Diagnosis Toe infection Unspecified local infection of skin and subcutaneous tissue documented in this encounter [facility] Work Phone: Evaluation note* Diagnosis Tobacco abuse Tobacco use disorder documented in this encounter [facility] Work Phone: Evaluation note* Diagnosis Closed nondisplaced fracture of sternal end of left clavicle with routine healing, subsequent encounter documented in this encounter [facility] Work Phone: Evaluation note* Diagnosis Encounter for screening for lung cancer documented in this encounter [facility] Work Phone: Evaluation note* Diagnosis Current moderate episode of major depressive disorder without prior episode (HCC) Chronic bronchitis, unspecified chronic bronchitis type (HCC) Encounter for adjustment or management of cardiac device [facility]* Diagnosis Other closed displaced fracture of proximal end of left humerus, initial encounter- Primary documented in this encounter [facility]* Diagnosis Hyponatremia- Primary Hyposmolality and/or hyponatremia Hyponatremia Hyposmolality and/or hyponatremia Other closed displaced fracture of proximal end of left humerus, initial encounter Other osteoporosis, unspecified pathological fracture presence Low hemoglobin Chronic bronchitis, unspecified chronic bronchitis type (HCC) Presence of implantable cardioverter-defibrillator (ICD) Alcohol abuse Nondependent alcohol abuse, unspecified drinking behavior Chronic hyponatremia Hyposmolality and/or hyponatremia Essential hypertension Unspecified essential hypertension COPD (chronic obstructive pulmonary disease) (HCC) Chronic airway obstruction, not elsewhere classified HFrEF (heart failure with reduced ejection fraction) (CMS/HCC) (HCC) Closed fracture of neck of left humerus with routine healing Low hemoglobin documented in this encounter [facility]* Diagnosis Chronic hyponatremia- Primary Hyposmolality and/or hyponatremia Alcohol abuse Nondependent alcohol abuse, unspecified drinking behavior Tobacco abuse Tobacco use disorder Colon cancer screening Special screening for malignant neoplasms, colon Need for vaccination for pneumococcus Anemia in other chronic diseases classified elsewhere Chronic bronchitis, unspecified chronic bronchitis type (HCC) documented [facility]* Diagnosis Other closed displaced fracture of proximal end of left humerus, initial encounter- Primary documented in this encounter [facility]* Diagnosis Current moderate episode of major depressive disorder without prior episode (HCC) documented in this encounter [facility]* Diagnosis HFrEF (heart failure with reduced ejection fraction) (CMS/HCC) (HCC) documented in this encounter [facility]* Diagnosis Chronic bronchitis, unspecified chronic bronchitis type (HCC) documented in this encounter [facility]* Diagnosis Chronic bronchitis, unspecified chronic bronchitis type (HCC) Encounter for adjustment or management of cardiac device documented in this encounter [facility] note* Diagnosis Current moderate episode of major depressive disorder without prior episode ([facility]) Encounter for adjustment or management of cardiac device documented in this encounter [facility] note* Diagnosis HFrEF (heart failure with reduced ejection fraction) ([facility]) Encounter for adjustment or management of cardiac device documented in this encounter [facility] note* Diagnosis Current moderate episode of major depressive disorder without prior episode ([facility]) documented in this encounter [facility] note* Diagnosis Chronic bronchitis, unspecified chronic bronchitis type ([facility]) documented in this encounter [facility] note* Diagnosis Chronic bronchitis, unspecified chronic bronchitis type ([facility]) Encounter for adjustment or management of cardiac device Encounter for adjustment or management of cardiac device documented in this encounter [facility] note* Diagnosis Acute exacerbation of CHF (congestive heart failure) ([facility])- Primary Congestive heart failure, unspecified COPD exacerbation ([facility]) Obstructive chronic bronchitis with exacerbation Acute on chronic congestive heart failure, unspecified heart failure type ([facility]) HFrEF (heart failure with reduced ejection fraction) ([facility]) Paroxysmal atrial fibrillation ([facility]) Atrial fibrillation Presence of implantable cardioverter-defibrillator (ICD) COPD exacerbation ([facility]) Obstructive chronic bronchitis with exacerbation Tobacco abuse Tobacco use disorder Presence of implantable cardioverter-defibrillator (ICD) Alcohol abuse Nondependent alcohol abuse, unspecified drinking behavior Paroxysmal atrial fibrillation ([facility]) Atrial fibrillation Chronic hyponatremia Hyposmolality and/or hyponatremia COPD (chronic obstructive pulmonary disease) ([facility]) Chronic airway obstruction, not elsewhere classified HFrEF (heart failure with reduced ejection fraction) ([facility]) Medical non-compliance Cor, pulmonale, acute ([facility]/HCC) ([facility]) Acute cor pulmonale Essential hypertension Unspecified essential hypertension Encounter for adjustment or management of cardiac device Encounter for adjustment or management of cardiac device documented in this encounter [facility] note* Diagnosis Chronic bronchitis, unspecified chronic bronchitis type ([facility]) Encounter for adjustment or management of cardiac device Encounter for adjustment or management of cardiac device documented in this encounter [facility] note* Diagnosis Current moderate episode of major depressive disorder without prior episode ([facility]) Encounter for adjustment or management of cardiac device Encounter for adjustment or management of cardiac device documented in this encounter [facility] note* Diagnosis Right arm numbness- Primary Disturbance of skin sensation Right arm numbness Disturbance of skin sensation Stroke-like symptoms Cervical spondylosis Cervical spondylosis without myelopathy Non-pressure chronic ulcer of other part of right foot with unspecified severity (HCC) Acute respiratory failure with hypoxia (HCC) Diabetes due to undrl condition w oth diabetic neuro comp (HCC) Alcohol abuse with withdrawal, uncomplicated (HCC) Current moderate episode of major depressive disorder without prior episode (HCC) Anemia in other chronic diseases classified elsewhere HFrEF (heart failure with reduced ejection fraction) (HCC) Permanent atrial fibrillation (HCC) Atrial fibrillation Hyponatremia Hyposmolality and/or hyponatremia Permanent atrial fibrillation (HCC) Atrial fibrillation Essential hypertension Unspecified essential hypertension HFrEF (heart failure with reduced ejection fraction) (HCC) Persistent depressive disorder DELORES (obstructive sleep apnea) Obstructive sleep apnea (adult) (pediatric) Poor compliance with medication Non-pressure chronic ulcer of other part of right foot with unspecified severity (HCC) Acute respiratory failure with hypoxia (HCC) Diabetes due to undrl condition w oth diabetic neuro comp (HCC) Alcohol abuse with withdrawal, uncomplicated (HCC) Encounter for adjustment or management of cardiac device documented in this encounter [facility]* Diagnosis Current moderate episode of major depressive disorder without prior episode (HCC) Chronic bronchitis, unspecified chronic bronchitis type (HCC) Encounter for adjustment or management of cardiac device documented in this encounter [facility]* Diagnosis Cervical spondylosis- Primary Cervical spondylosis without myelopathy Hyponatremia Hyposmolality and/or hyponatremia Paroxysmal atrial fibrillation (HCC) Atrial fibrillation HFrEF (heart failure with reduced ejection fraction) (HCC) Current moderate episode of major depressive disorder without prior episode (HCC) Chronic bronchitis, unspecified chronic bronchitis type (HCC) Essential hypertension Unspecified essential hypertension Alcohol abuse Nondependent alcohol abuse, unspecified drinking behavior Encounter for adjustment or management of cardiac device documented in this encounter [facility]* Diagnosis Mucopurulent chronic bronchitis (HCC)- Primary Mucopurulent chronic bronchitis Chronic bronchitis, unspecified chronic bronchitis type (HCC) DELORES on CPAP Presence of implantable cardioverter-defibrillator (ICD) Paroxysmal atrial fibrillation (HCC) Atrial fibrillation HFrEF (heart failure with reduced ejection fraction) (HCC) Cigarette smoker Tobacco use disorder Personal history of smoking Personal history of tobacco use, presenting hazards to health Encounter for adjustment or management of cardiac device documented in this encounter [facility]* Diagnosis Chronic bronchitis, unspecified chronic bronchitis type (HCC) Encounter for adjustment or management of cardiac device documented in this encounter [facility]* Diagnosis Generalized abdominal pain- Primary Abdominal pain, generalized documented in this encounter [facility]* Diagnosis COPD exacerbation (CMS/HCC) (HCC)- Primary Obstructive chronic bronchitis with exacerbation COPD exacerbation (CMS/HCC) (HCC) Obstructive chronic bronchitis with exacerbation Chronic hyponatremia Hyposmolality and/or hyponatremia Chronic hyponatremia Hyposmolality and/or hyponatremia Essential hypertension Unspecified essential hypertension HFrEF (heart failure with reduced ejection fraction) (CMS/HCC) (HCC) Paroxysmal atrial fibrillation (CMS/HCC) (HCC) Atrial fibrillation Presence of implantable cardioverter-defibrillator (ICD) Tobacco abuse Tobacco use disorder Alcohol abuse Nondependent alcohol abuse, unspecified drinking behavior documented in this encounter [facility]* Diagnosis HFrEF (heart failure with reduced ejection fraction) (CMS/HCC) (HCC)- Primary Essential hypertension Unspecified essential hypertension Tobacco abuse Tobacco use disorder Presence of implantable cardioverter-defibrillator (ICD) documented in this encounter [facility]* Diagnosis Paroxysmal atrial fibrillation (CMS/HCC) (HCC) Atrial fibrillation documented in this encounter [facility]* Diagnosis Chronic bronchitis, unspecified chronic bronchitis type (HCC)- Primary Needs flu shot Need for prophylactic vaccination and inoculation against influenza Essential hypertension Unspecified essential hypertension Paroxysmal atrial fibrillation (HCC) Atrial fibrillation Current moderate episode of major depressive disorder without prior episode (HCC) Alcohol abuse Nondependent alcohol abuse, unspecified drinking behavior HFrEF (heart failure with reduced ejection fraction) (HCC)- Primary Presence of implantable cardioverter-defibrillator (ICD) Paroxysmal atrial fibrillation (HCC) Atrial fibrillation Essential hypertension Unspecified essential hypertension Hyponatremia Hyposmolality and/or hyponatremia Hospital discharge follow-up Other follow-up examination Tobacco abuse Tobacco use disorder Alcohol abuse Nondependent alcohol abuse, unspecified drinking behavior Apical mural thrombus Chronic hyponatremia- Primary Hyposmolality and/or hyponatremia Alcohol abuse Nondependent alcohol abuse, unspecified drinking behavior Tobacco abuse Tobacco use disorder Colon cancer screening Special screening for malignant neoplasms, colon Need for vaccination for pneumococcus Anemia in other chronic diseases classified elsewhere Chronic bronchitis, unspecified chronic bronchitis type (HCC) Cervical spondylosis- Primary Cervical spondylosis without myelopathy Hyponatremia Hyposmolality and/or hyponatremia Paroxysmal atrial fibrillation (HCC) Atrial fibrillation HFrEF (heart failure with reduced ejection fraction) ([facility]) Current moderate episode of major depressive disorder without prior episode (HCC) Chronic bronchitis, unspecified chronic bronchitis type (HCC) Essential hypertension Unspecified essential hypertension Alcohol abuse Nondependent alcohol abuse, unspecified drinking behavior Pneumonia of right lower lobe due to infectious organism- Primary Pneumonia of right lower lobe due to infectious organism Chronic congestive heart failure, unspecified heart failure type (HCC) Atrial fibrillation, unspecified type (HCC) Chronic bronchitis, unspecified chronic bronchitis type (HCC) Permanent atrial fibrillation (HCC) Atrial fibrillation Alcohol consumption heavy COPD (chronic obstructive pulmonary disease) (HCC) Chronic airway obstruction, not elsewhere classified HFrEF (heart failure with reduced ejection fraction) ([facility]) Tobacco abuse Tobacco use disorder Presence of implantable cardioverter-defibrillator (ICD) Acute exacerbation of CHF (congestive heart failure) (HCC) Congestive heart failure, unspecified DELORES (obstructive sleep apnea) Obstructive sleep apnea (adult) (pediatric) Poor compliance with medication CAP (community acquired pneumonia) Pneumonia, organism unspecified Pulmonary HTN ([facility]) Alcohol abuse, continuous Nondependent alcohol abuse, continuous drinking behavior Financial difficulties Inadequate material resources Medical non-compliance Encounter for adjustment or management of cardiac device documented in this encounter [facility]* Diagnosis Chronic bronchitis, unspecified chronic bronchitis type (HCC)- Primary Needs flu shot Need for prophylactic vaccination and inoculation against influenza Essential hypertension Unspecified essential hypertension Paroxysmal atrial fibrillation (HCC) Atrial fibrillation Current moderate episode of major depressive disorder without prior episode (HCC) Alcohol abuse Nondependent alcohol abuse, unspecified drinking behavior HFrEF (heart failure with reduced ejection fraction) ([facility])- Primary Presence of implantable cardioverter-defibrillator (ICD) Paroxysmal atrial fibrillation (HCC) Atrial fibrillation Essential hypertension Unspecified essential hypertension Hyponatremia Hyposmolality and/or hyponatremia Hospital discharge follow-up Other follow-up examination Tobacco abuse Tobacco use disorder Alcohol abuse Nondependent alcohol abuse, unspecified drinking behavior Apical mural thrombus Chronic hyponatremia- Primary Hyposmolality and/or hyponatremia Alcohol abuse Nondependent alcohol abuse, unspecified drinking behavior Tobacco abuse Tobacco use disorder Colon cancer screening Special screening for malignant neoplasms, colon Need for vaccination for pneumococcus Anemia in other chronic diseases classified elsewhere Chronic bronchitis, unspecified chronic bronchitis type (HCC) Cervical spondylosis- Primary Cervical spondylosis without myelopathy Hyponatremia Hyposmolality and/or hyponatremia Paroxysmal atrial fibrillation (HCC) Atrial fibrillation HFrEF (heart failure with reduced ejection fraction) (HCC) Current moderate episode of major depressive disorder without prior episode (HCC) Chronic bronchitis, unspecified chronic bronchitis type (HCC) Essential hypertension Unspecified essential hypertension Alcohol abuse Nondependent alcohol abuse, unspecified drinking behavior MRSA (methicillin resistant staph aureus) culture positive- Primary Carrier or suspected carrier of Methicillin resistant Staphylococcus aureus Encounter for adjustment or management of cardiac device [facility] Diagnosis Chronic bronchitis, unspecified chronic bronchitis type (HCC)- Primary Needs flu shot Need for prophylactic vaccination and inoculation against influenza Essential hypertension Unspecified essential hypertension Paroxysmal atrial fibrillation (HCC) Atrial fibrillation Current moderate episode of major depressive disorder without prior episode (HCC) Alcohol abuse Nondependent alcohol abuse, unspecified drinking behavior HFrEF (heart failure with reduced ejection fraction) (HCC)- Primary Presence of implantable cardioverter-defibrillator (ICD) Paroxysmal atrial fibrillation (HCC) Atrial fibrillation Essential hypertension Unspecified essential hypertension Hyponatremia Hyposmolality and/or hyponatremia Hospital discharge follow-up Other follow-up examination Tobacco abuse Tobacco use disorder Alcohol abuse Nondependent alcohol abuse, unspecified drinking behavior Apical mural thrombus Chronic hyponatremia- Primary Hyposmolality and/or hyponatremia Alcohol abuse Nondependent alcohol abuse, unspecified drinking behavior Tobacco abuse Tobacco use disorder Colon cancer screening Special screening for malignant neoplasms, colon Need for vaccination for pneumococcus Anemia in other chronic diseases classified elsewhere Chronic bronchitis, unspecified chronic bronchitis type (HCC) Cervical spondylosis- Primary Cervical spondylosis without myelopathy Hyponatremia Hyposmolality and/or hyponatremia Paroxysmal atrial fibrillation (HCC) Atrial fibrillation HFrEF (heart failure with reduced ejection fraction) (HCC) Current moderate episode of major depressive disorder without prior episode (HCC) Chronic bronchitis, unspecified chronic bronchitis type (HCC) Essential hypertension Unspecified essential hypertension Alcohol abuse Nondependent alcohol abuse, unspecified drinking behavior MRSA (methicillin resistant staph aureus) culture positive- Primary Carrier or suspected carrier of Methicillin resistant Staphylococcus aureus Encounter for adjustment or management of cardiac device [facility] Diagnosis Chronic bronchitis, unspecified chronic bronchitis type (HCC)- Primary Needs flu shot Need for prophylactic vaccination and inoculation against influenza Essential hypertension Unspecified essential hypertension Paroxysmal atrial fibrillation (HCC) Atrial fibrillation Current moderate episode of major depressive disorder without prior episode (HCC) Alcohol abuse Nondependent alcohol abuse, unspecified drinking behavior HFrEF (heart failure with reduced ejection fraction) (HCC)- Primary Presence of implantable cardioverter-defibrillator (ICD) Paroxysmal atrial fibrillation (HCC) Atrial fibrillation Essential hypertension Unspecified essential hypertension Hyponatremia Hyposmolality and/or hyponatremia Hospital discharge follow-up Other follow-up examination Tobacco abuse Tobacco use disorder Alcohol abuse Nondependent alcohol abuse, unspecified drinking behavior Apical mural thrombus Chronic hyponatremia- Primary Hyposmolality and/or hyponatremia Alcohol abuse Nondependent alcohol abuse, unspecified drinking behavior Tobacco abuse Tobacco use disorder Colon cancer screening Special screening for malignant neoplasms, colon Need for vaccination for pneumococcus Anemia in other chronic diseases classified elsewhere Chronic bronchitis, unspecified chronic bronchitis type (HCC) Cervical spondylosis- Primary Cervical spondylosis without myelopathy Hyponatremia Hyposmolality and/or hyponatremia Paroxysmal atrial fibrillation (HCC) Atrial fibrillation HFrEF (heart failure with reduced ejection fraction) (HCC) Current moderate episode of major depressive disorder without prior episode (HCC) Chronic bronchitis, unspecified chronic bronchitis type (HCC) Essential hypertension Unspecified essential hypertension Alcohol abuse Nondependent alcohol abuse, unspecified drinking behavior MRSA (methicillin resistant staph aureus) culture positive- Primary Carrier or suspected carrier of Methicillin resistant Staphylococcus aureus Encounter for adjustment or management of cardiac device documented in this encounter [facility]* Diagnosis Chronic bronchitis, unspecified chronic bronchitis type (HCC)- Primary Needs flu shot Need for prophylactic vaccination and inoculation against influenza Essential hypertension Unspecified essential hypertension Paroxysmal atrial fibrillation (HCC) Atrial fibrillation Current moderate episode of major depressive disorder without prior episode (HCC) Alcohol abuse Nondependent alcohol abuse, unspecified drinking behavior HFrEF (heart failure with reduced ejection fraction) (HCC)- Primary Presence of implantable cardioverter-defibrillator (ICD) Paroxysmal atrial fibrillation (HCC) Atrial fibrillation Essential hypertension Unspecified essential hypertension Hyponatremia Hyposmolality and/or hyponatremia Hospital discharge follow-up Other follow-up examination Tobacco abuse Tobacco use disorder Alcohol abuse Nondependent alcohol abuse, unspecified drinking behavior Apical mural thrombus Chronic hyponatremia- Primary Hyposmolality and/or hyponatremia Alcohol abuse Nondependent alcohol abuse, unspecified drinking behavior Tobacco abuse Tobacco use disorder Colon cancer screening Special screening for malignant neoplasms, colon Need for vaccination for pneumococcus Anemia in other chronic diseases classified elsewhere Chronic bronchitis, unspecified chronic bronchitis type (HCC) Cervical spondylosis- Primary Cervical spondylosis without myelopathy Hyponatremia Hyposmolality and/or hyponatremia Paroxysmal atrial fibrillation (HCC) Atrial fibrillation HFrEF (heart failure with reduced ejection fraction) (HCC) Current moderate episode of major depressive disorder without prior episode (HCC) Chronic bronchitis, unspecified chronic bronchitis type (HCC) Essential hypertension Unspecified essential hypertension Alcohol abuse Nondependent alcohol abuse, unspecified drinking behavior Malnutrition, unspecified type (HCC)- Primary Paroxysmal atrial fibrillation (HCC) Atrial fibrillation HFrEF (heart failure with reduced ejection fraction) (HCC) Chronic bronchitis, unspecified chronic bronchitis type (HCC) Essential hypertension Unspecified essential hypertension Persistent depressive disorder Encounter for adjustment or management of cardiac device documented in this encounter [facility]* Diagnosis Chronic bronchitis, unspecified chronic bronchitis type (HCC)- Primary Needs flu shot Need for prophylactic vaccination and inoculation against influenza Essential hypertension Unspecified essential hypertension Paroxysmal atrial fibrillation (HCC) Atrial fibrillation Current moderate episode of major depressive disorder without prior episode (HCC) Alcohol abuse Nondependent alcohol abuse, unspecified drinking behavior HFrEF (heart failure with reduced ejection fraction) (HCC)- Primary Presence of implantable cardioverter-defibrillator (ICD) Paroxysmal atrial fibrillation (HCC) Atrial fibrillation Essential hypertension Unspecified essential hypertension Hyponatremia Hyposmolality and/or hyponatremia Hospital discharge follow-up Other follow-up examination Tobacco abuse Tobacco use disorder Alcohol abuse Nondependent alcohol abuse, unspecified drinking behavior Apical mural thrombus Chronic hyponatremia- Primary Hyposmolality and/or hyponatremia Alcohol abuse Nondependent alcohol abuse, unspecified drinking behavior Tobacco abuse Tobacco use disorder Colon cancer screening Special screening for malignant neoplasms, colon Need for vaccination for pneumococcus Anemia in other chronic diseases classified elsewhere Chronic bronchitis, unspecified chronic bronchitis type (HCC) Cervical spondylosis- Primary Cervical spondylosis without myelopathy Hyponatremia Hyposmolality and/or hyponatremia Paroxysmal atrial fibrillation (HCC) Atrial fibrillation HFrEF (heart failure with reduced ejection fraction) (HCC) Current moderate episode of major depressive disorder without prior episode (HCC) Chronic bronchitis, unspecified chronic bronchitis type (HCC) Essential hypertension Unspecified essential hypertension Alcohol abuse Nondependent alcohol abuse, unspecified drinking behavior Acute on chronic congestive heart failure, unspecified heart failure type (HCC)- Primary Acute on chronic congestive heart failure, unspecified heart failure type (HCC) Elevated serum creatinine Other nonspecific findings on examination of blood Acute on chronic systolic (congestive) heart failure (HCC) Non-pressure chronic ulcer of other part of right foot with unspecified severity (HCC) Moderate malnutrition (CMS/HCC) (HCC) Cor, pulmonale, acute (CMS/HCC) (HCC) Acute cor pulmonale Current moderate episode of major depressive disorder without prior episode (HCC) Alcohol abuse with withdrawal, uncomplicated (HCC) Diabetes due to undrl condition w oth diabetic neuro comp (HCC) Permanent atrial fibrillation (HCC) Atrial fibrillation Chronic hyponatremia Hyposmolality and/or hyponatremia Essential hypertension Unspecified essential hypertension COPD (chronic obstructive pulmonary disease) (HCC) Chronic airway obstruction, not elsewhere classified HFrEF (heart failure with reduced ejection fraction) (HCC) Tobacco abuse Tobacco use disorder Presence of implantable cardioverter-defibrillator (ICD) Moderate malnutrition (CMS/HCC) (HCC) Bilateral edema of lower extremity Acute on chronic systolic (congestive) heart failure (HCC) Encounter for adjustment or management of cardiac device documented in this encounter [facility]* Diagnosis Chronic bronchitis, unspecified chronic bronchitis type (HCC)- Primary Needs flu shot Need for prophylactic vaccination and inoculation against influenza Essential hypertension Unspecified essential hypertension Paroxysmal atrial fibrillation (HCC) Atrial fibrillation Current moderate episode of major depressive disorder without prior episode (HCC) Alcohol abuse Nondependent alcohol abuse, unspecified drinking behavior HFrEF (heart failure with reduced ejection fraction) (HCC)- Primary Presence of implantable cardioverter-defibrillator (ICD) Paroxysmal atrial fibrillation (HCC) Atrial fibrillation Essential hypertension Unspecified essential hypertension Hyponatremia Hyposmolality and/or hyponatremia Hospital discharge follow-up Other follow-up examination Tobacco abuse Tobacco use disorder Alcohol abuse Nondependent alcohol abuse, unspecified drinking behavior Apical mural thrombus Chronic hyponatremia- Primary Hyposmolality and/or hyponatremia Alcohol abuse Nondependent alcohol abuse, unspecified drinking behavior Tobacco abuse Tobacco use disorder Colon cancer screening Special screening for malignant neoplasms, colon Need for vaccination for pneumococcus Anemia in other chronic diseases classified elsewhere Chronic bronchitis, unspecified chronic bronchitis type (HCC) Cervical spondylosis- Primary Cervical spondylosis without myelopathy Hyponatremia Hyposmolality and/or hyponatremia Paroxysmal atrial fibrillation (HCC) Atrial fibrillation HFrEF (heart failure with reduced ejection fraction) ([facility]) Current moderate episode of major depressive disorder without prior episode (HCC) Chronic bronchitis, unspecified chronic bronchitis type (HCC) Essential hypertension Unspecified essential hypertension Alcohol abuse Nondependent alcohol abuse, unspecified drinking behavior Dyspnea due to congestive heart failure (HCC)- Primary Chronic bronchitis, unspecified chronic bronchitis type (HCC) documented in this encounter [facility]* Diagnosis Chronic bronchitis, unspecified chronic bronchitis type (HCC)- Primary Needs flu shot Need for prophylactic vaccination and inoculation against influenza Essential hypertension Unspecified essential hypertension Paroxysmal atrial fibrillation (HCC) Atrial fibrillation Current moderate episode of major depressive disorder without prior episode (HCC) Alcohol abuse Nondependent alcohol abuse, unspecified drinking behavior HFrEF (heart failure with reduced ejection fraction) (HCC)- Primary Presence of implantable cardioverter-defibrillator (ICD) Paroxysmal atrial fibrillation (HCC) Atrial fibrillation Essential hypertension Unspecified essential hypertension Hyponatremia Hyposmolality and/or hyponatremia Hospital discharge follow-up Other follow-up examination Tobacco abuse Tobacco use disorder Alcohol abuse Nondependent alcohol abuse, unspecified drinking behavior Apical mural thrombus Chronic hyponatremia- Primary Hyposmolality and/or hyponatremia Alcohol abuse Nondependent alcohol abuse, unspecified drinking behavior Tobacco abuse Tobacco use disorder Colon cancer screening Special screening for malignant neoplasms, colon Need for vaccination for pneumococcus Anemia in other chronic diseases classified elsewhere Chronic bronchitis, unspecified chronic bronchitis type (HCC) Cervical spondylosis- Primary Cervical spondylosis without myelopathy Hyponatremia Hyposmolality and/or hyponatremia Paroxysmal atrial fibrillation (HCC) Atrial fibrillation HFrEF (heart failure with reduced ejection fraction) (HCC) Current moderate episode of major depressive disorder without prior episode (HCC) Chronic bronchitis, unspecified chronic bronchitis type (HCC) Essential hypertension Unspecified essential hypertension Alcohol abuse Nondependent alcohol abuse, unspecified drinking behavior Chronic HFrEF (heart failure with reduced ejection fraction) (HCC)- Primary HFrEF (heart failure with reduced ejection fraction) (HCC) Permanent atrial fibrillation (HCC) Atrial fibrillation On continuous oral anticoagulation Presence of cardiac resynchronization therapy defibrillator (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) Personal history of smoking Personal history of tobacco use, presenting hazards to health documented in this encounter [facility]* Diagnosis Chronic bronchitis, unspecified chronic bronchitis type (HCC)- Primary Needs flu shot Need for prophylactic vaccination and inoculation against influenza Essential hypertension Unspecified essential hypertension Paroxysmal atrial fibrillation (HCC) Atrial fibrillation Current moderate episode of major depressive disorder without prior episode (HCC) Alcohol abuse Nondependent alcohol abuse, unspecified drinking behavior HFrEF (heart failure with reduced ejection fraction) (HCC)- Primary Presence of implantable cardioverter-defibrillator (ICD) Paroxysmal atrial fibrillation (HCC) Atrial fibrillation Essential hypertension Unspecified essential hypertension Hyponatremia Hyposmolality and/or hyponatremia Hospital discharge follow-up Other follow-up examination Tobacco abuse Tobacco use disorder Alcohol abuse Nondependent alcohol abuse, unspecified drinking behavior Apical mural thrombus Chronic hyponatremia- Primary Hyposmolality and/or hyponatremia Alcohol abuse Nondependent alcohol abuse, unspecified drinking behavior Tobacco abuse Tobacco use disorder Colon cancer screening Special screening for malignant neoplasms, colon Need for vaccination for pneumococcus Anemia in other chronic diseases classified elsewhere Chronic bronchitis, unspecified chronic bronchitis type (HCC) Cervical spondylosis- Primary Cervical spondylosis without myelopathy Hyponatremia Hyposmolality and/or hyponatremia Paroxysmal atrial fibrillation (HCC) Atrial fibrillation HFrEF (heart failure with reduced ejection fraction) (HCC) Current moderate episode of major depressive disorder without prior episode (HCC) Chronic bronchitis, unspecified chronic bronchitis type (HCC) Essential hypertension Unspecified essential hypertension Alcohol abuse Nondependent alcohol abuse, unspecified drinking behavior Chronic HFrEF (heart failure with reduced ejection fraction) (HCC)- Primary HFrEF (heart failure with reduced ejection fraction) (HCC) Permanent atrial fibrillation (HCC) Atrial fibrillation On continuous oral anticoagulation Presence of cardiac resynchronization therapy defibrillator (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) Personal history of smoking Personal history of tobacco use, presenting hazards to health Acute hypercapnic respiratory failure (HCC)- Primary Acute hypercapnic respiratory failure (HCC) Acute on chronic systolic (congestive) heart failure (HCC) Acute on chronic respiratory failure with hypoxia and hypercapnia (HCC) DELORES (obstructive sleep apnea) Obstructive sleep apnea (adult) (pediatric) Alcohol consumption heavy Chronic hyponatremia Hyposmolality and/or hyponatremia HFrEF (heart failure with reduced ejection fraction) (HCC) Prolonged QT interval Nonspecific abnormal electrocardiogram (ECG) (EKG) Presence of cardiac resynchronization therapy defibrillator (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) EEG abnormality without seizure Nonspecific abnormal electroencephalogram (EEG) Requires continuous at home supplemental oxygen Encounter for adjustment or management of cardiac device documented in this encounter [facility]* Diagnosis Chronic bronchitis, unspecified chronic bronchitis type (HCC)- Primary Needs flu shot Need for prophylactic vaccination and inoculation against influenza Essential hypertension Unspecified essential hypertension Paroxysmal atrial fibrillation (HCC) Atrial fibrillation Current moderate episode of major depressive disorder without prior episode (HCC) Alcohol abuse Nondependent alcohol abuse, unspecified drinking behavior HFrEF (heart failure with reduced ejection fraction) (HCC)- Primary Presence of implantable cardioverter-defibrillator (ICD) Paroxysmal atrial fibrillation (HCC) Atrial fibrillation Essential hypertension Unspecified essential hypertension Hyponatremia Hyposmolality and/or hyponatremia Hospital discharge follow-up Other follow-up examination Tobacco abuse Tobacco use disorder Alcohol abuse Nondependent alcohol abuse, unspecified drinking behavior Apical mural thrombus Chronic hyponatremia- Primary Hyposmolality and/or hyponatremia Alcohol abuse Nondependent alcohol abuse, unspecified drinking behavior Tobacco abuse Tobacco use disorder Colon cancer screening Special screening for malignant neoplasms, colon Need for vaccination for pneumococcus Anemia in other chronic diseases classified elsewhere Chronic bronchitis, unspecified chronic bronchitis type (HCC) Cervical spondylosis- Primary Cervical spondylosis without myelopathy Hyponatremia Hyposmolality and/or hyponatremia Paroxysmal atrial fibrillation (HCC) Atrial fibrillation HFrEF (heart failure with reduced ejection fraction) (HCC) Current moderate episode of major depressive disorder without prior episode (HCC) Chronic bronchitis, unspecified chronic bronchitis type (HCC) Essential hypertension Unspecified essential hypertension Alcohol abuse Nondependent alcohol abuse, unspecified drinking behavior Chronic HFrEF (heart failure with reduced ejection fraction) (HCC)- Primary HFrEF (heart failure with reduced ejection fraction) (HCC) Permanent atrial fibrillation (HCC) Atrial fibrillation On continuous oral anticoagulation Presence of cardiac resynchronization therapy defibrillator (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) Personal history of smoking Personal history of tobacco use, presenting hazards to health HFrEF (heart failure with reduced ejection fraction) (HCC) documented in this encounter [facility]* Diagnosis Chronic bronchitis, unspecified chronic bronchitis type (HCC)- Primary Needs flu shot Need for prophylactic vaccination and inoculation against influenza Essential hypertension Unspecified essential hypertension Paroxysmal atrial fibrillation (HCC) Atrial fibrillation Current moderate episode of major depressive disorder without prior episode (HCC) Alcohol abuse Nondependent alcohol abuse, unspecified drinking behavior HFrEF (heart failure with reduced ejection fraction) (HCC)- Primary Presence of implantable cardioverter-defibrillator (ICD) Paroxysmal atrial fibrillation (HCC) Atrial fibrillation Essential hypertension Unspecified essential hypertension Hyponatremia Hyposmolality and/or hyponatremia Hospital discharge follow-up Other follow-up examination Tobacco abuse Tobacco use disorder Alcohol abuse Nondependent alcohol abuse, unspecified drinking behavior Apical mural thrombus Chronic hyponatremia- Primary Hyposmolality and/or hyponatremia Alcohol abuse Nondependent alcohol abuse, unspecified drinking behavior Tobacco abuse Tobacco use disorder Colon cancer screening Special screening for malignant neoplasms, colon Need for vaccination for pneumococcus Anemia in other chronic diseases classified elsewhere Chronic bronchitis, unspecified chronic bronchitis type (HCC) Cervical spondylosis- Primary Cervical spondylosis without myelopathy Hyponatremia Hyposmolality and/or hyponatremia Paroxysmal atrial fibrillation (HCC) Atrial fibrillation HFrEF (heart failure with reduced ejection fraction) (HCC) Current moderate episode of major depressive disorder without prior episode (HCC) Chronic bronchitis, unspecified chronic bronchitis type (HCC) Essential hypertension Unspecified essential hypertension Alcohol abuse Nondependent alcohol abuse, unspecified drinking behavior Chronic HFrEF (heart failure with reduced ejection fraction) (HCC)- Primary HFrEF (heart failure with reduced ejection fraction) (HCC) Permanent atrial fibrillation (HCC) Atrial fibrillation On continuous oral anticoagulation Presence of cardiac resynchronization therapy defibrillator (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) Personal history of smoking Personal history of tobacco use, presenting hazards to health Persistent depressive disorder Encounter for adjustment or management of cardiac device documented in this encounter [facility]* Diagnosis Chronic bronchitis, unspecified chronic bronchitis type (HCC)- Primary Needs flu shot Need for prophylactic vaccination and inoculation against influenza Essential hypertension Unspecified essential hypertension Paroxysmal atrial fibrillation (HCC) Atrial fibrillation Current moderate episode of major depressive disorder without prior episode (HCC) Alcohol abuse Nondependent alcohol abuse, unspecified drinking behavior HFrEF (heart failure with reduced ejection fraction) (HCC)- Primary Presence of implantable cardioverter-defibrillator (ICD) Paroxysmal atrial fibrillation (HCC) Atrial fibrillation Essential hypertension Unspecified essential hypertension Hyponatremia Hyposmolality and/or hyponatremia Hospital discharge follow-up Other follow-up examination Tobacco abuse Tobacco use disorder Alcohol abuse Nondependent alcohol abuse, unspecified drinking behavior Apical mural thrombus Chronic hyponatremia- Primary Hyposmolality and/or hyponatremia Alcohol abuse Nondependent alcohol abuse, unspecified drinking behavior Tobacco abuse Tobacco use disorder Colon cancer screening Special screening for malignant neoplasms, colon Need for vaccination for pneumococcus Anemia in other chronic diseases classified elsewhere Chronic bronchitis, unspecified chronic bronchitis type (HCC) Cervical spondylosis- Primary Cervical spondylosis without myelopathy Hyponatremia Hyposmolality and/or hyponatremia Paroxysmal atrial fibrillation (HCC) Atrial fibrillation HFrEF (heart failure with reduced ejection fraction) (HCC) Current moderate episode of major depressive disorder without prior episode (HCC) Chronic bronchitis, unspecified chronic bronchitis type (HCC) Essential hypertension Unspecified essential hypertension Alcohol abuse Nondependent alcohol abuse, unspecified drinking behavior Chronic HFrEF (heart failure with reduced ejection fraction) (HCC)- Primary HFrEF (heart failure with reduced ejection fraction) (HCC) Permanent atrial fibrillation (HCC) Atrial fibrillation On continuous oral anticoagulation Presence of cardiac resynchronization therapy defibrillator (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) Personal history of smoking Personal history of tobacco use, presenting hazards to health Malnutrition, unspecified type (HCC) Essential hypertension Unspecified essential hypertension Encounter for adjustment or management of cardiac device documented in this encounter [facility]* Diagnosis Chronic bronchitis, unspecified chronic bronchitis type (HCC)- Primary Needs flu shot Need for prophylactic vaccination and inoculation against influenza Essential hypertension Unspecified essential hypertension Paroxysmal atrial fibrillation (HCC) Atrial fibrillation Current moderate episode of major depressive disorder without prior episode (HCC) Alcohol abuse Nondependent alcohol abuse, unspecified drinking behavior HFrEF (heart failure with reduced ejection fraction) (HCC)- Primary Presence of implantable cardioverter-defibrillator (ICD) Paroxysmal atrial fibrillation (HCC) Atrial fibrillation Essential hypertension Unspecified essential hypertension Hyponatremia Hyposmolality and/or hyponatremia Hospital discharge follow-up Other follow-up examination Tobacco abuse Tobacco use disorder Alcohol abuse Nondependent alcohol abuse, unspecified drinking behavior Apical mural thrombus Chronic hyponatremia- Primary Hyposmolality and/or hyponatremia Alcohol abuse Nondependent alcohol abuse, unspecified drinking behavior Tobacco abuse Tobacco use disorder Colon cancer screening Special screening for malignant neoplasms, colon Need for vaccination for pneumococcus Anemia in other chronic diseases classified elsewhere Chronic bronchitis, unspecified chronic bronchitis type (HCC) Cervical spondylosis- Primary Cervical spondylosis without myelopathy Hyponatremia Hyposmolality and/or hyponatremia Paroxysmal atrial fibrillation (HCC) Atrial fibrillation HFrEF (heart failure with reduced ejection fraction) (HCC) Current moderate episode of major depressive disorder without prior episode (HCC) Chronic bronchitis, unspecified chronic bronchitis type (HCC) Essential hypertension Unspecified essential hypertension Alcohol abuse Nondependent alcohol abuse, unspecified drinking behavior Chronic HFrEF (heart failure with reduced ejection fraction) (HCC)- Primary HFrEF (heart failure with reduced ejection fraction) (HCC) Permanent atrial fibrillation (HCC) Atrial fibrillation On continuous oral anticoagulation Presence of cardiac resynchronization therapy defibrillator (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) Personal history of smoking Personal history of tobacco use, presenting hazards to health HFrEF (heart failure with reduced ejection fraction) (HCC) Encounter for adjustment or management of cardiac device documented in this encounter [facility]* Diagnosis Chronic bronchitis, unspecified chronic bronchitis type (HCC)- Primary Needs flu shot Need for prophylactic vaccination and inoculation against influenza Essential hypertension Unspecified essential hypertension Paroxysmal atrial fibrillation (HCC) Atrial fibrillation Current moderate episode of major depressive disorder without prior episode (HCC) Alcohol abuse Nondependent alcohol abuse, unspecified drinking behavior HFrEF (heart failure with reduced ejection fraction) (HCC)- Primary Presence of implantable cardioverter-defibrillator (ICD) Paroxysmal atrial fibrillation (HCC) Atrial fibrillation Essential hypertension Unspecified essential hypertension Hyponatremia Hyposmolality and/or hyponatremia Hospital discharge follow-up Other follow-up examination Tobacco abuse Tobacco use disorder Alcohol abuse Nondependent alcohol abuse, unspecified drinking behavior Apical mural thrombus Chronic hyponatremia- Primary Hyposmolality and/or hyponatremia Alcohol abuse Nondependent alcohol abuse, unspecified drinking behavior Tobacco abuse Tobacco use disorder Colon cancer screening Special screening for malignant neoplasms, colon Need for vaccination for pneumococcus Anemia in other chronic diseases classified elsewhere Chronic bronchitis, unspecified chronic bronchitis type (HCC) Cervical spondylosis- Primary Cervical spondylosis without myelopathy Hyponatremia Hyposmolality and/or hyponatremia Paroxysmal atrial fibrillation (HCC) Atrial fibrillation HFrEF (heart failure with reduced ejection fraction) (HCC) Current moderate episode of major depressive disorder without prior episode (HCC) Chronic bronchitis, unspecified chronic bronchitis type (HCC) Essential hypertension Unspecified essential hypertension Alcohol abuse Nondependent alcohol abuse, unspecified drinking behavior Chronic HFrEF (heart failure with reduced ejection fraction) (HCC)- Primary HFrEF (heart failure with reduced ejection fraction) (HCC) Permanent atrial fibrillation (HCC) Atrial fibrillation On continuous oral anticoagulation Presence of cardiac resynchronization therapy defibrillator (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) Personal history of smoking Personal history of tobacco use, presenting hazards to health Chronic bronchitis, unspecified chronic bronchitis type (HCC) Encounter for adjustment or management of cardiac device documented in this encounter [facility]* Diagnosis Chronic bronchitis, unspecified chronic bronchitis type (HCC)- Primary Needs flu shot Need for prophylactic vaccination and inoculation against influenza Essential hypertension Unspecified essential hypertension Paroxysmal atrial fibrillation (HCC) Atrial fibrillation Current moderate episode of major depressive disorder without prior episode (HCC) Alcohol abuse Nondependent alcohol abuse, unspecified drinking behavior HFrEF (heart failure with reduced ejection fraction) (HCC)- Primary Presence of implantable cardioverter-defibrillator (ICD) Paroxysmal atrial fibrillation (HCC) Atrial fibrillation Essential hypertension Unspecified essential hypertension Hyponatremia Hyposmolality and/or hyponatremia Hospital discharge follow-up Other follow-up examination Tobacco abuse Tobacco use disorder Alcohol abuse Nondependent alcohol abuse, unspecified drinking behavior Apical mural thrombus Chronic hyponatremia- Primary Hyposmolality and/or hyponatremia Alcohol abuse Nondependent alcohol abuse, unspecified drinking behavior Tobacco abuse Tobacco use disorder Colon cancer screening Special screening for malignant neoplasms, colon Need for vaccination for pneumococcus Anemia in other chronic diseases classified elsewhere Chronic bronchitis, unspecified chronic bronchitis type (HCC) Cervical spondylosis- Primary Cervical spondylosis without myelopathy Hyponatremia Hyposmolality and/or hyponatremia Paroxysmal atrial fibrillation (HCC) Atrial fibrillation HFrEF (heart failure with reduced ejection fraction) (HCC) Current moderate episode of major depressive disorder without prior episode (HCC) Chronic bronchitis, unspecified chronic bronchitis type (HCC) Essential hypertension Unspecified essential hypertension Alcohol abuse Nondependent alcohol abuse, unspecified drinking behavior Chronic HFrEF (heart failure with reduced ejection fraction) (HCC)- Primary HFrEF (heart failure with reduced ejection fraction) (HCC) Permanent atrial fibrillation (HCC) Atrial fibrillation On continuous oral anticoagulation Presence of cardiac resynchronization therapy defibrillator (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) Personal history of smoking Personal history of tobacco use, presenting hazards to health Essential hypertension Unspecified essential hypertension HFrEF (heart failure with reduced ejection fraction) (HCC) Encounter for adjustment or management of cardiac device documented in this encounter [facility]* Diagnosis Chronic bronchitis, unspecified chronic bronchitis type (HCC)- Primary Needs flu shot Need for prophylactic vaccination and inoculation against influenza Essential hypertension Unspecified essential hypertension Paroxysmal atrial fibrillation (HCC) Atrial fibrillation Current moderate episode of major depressive disorder without prior episode (CMS/HCC) Alcohol abuse Nondependent alcohol abuse, unspecified drinking behavior HFrEF (heart failure with reduced ejection fraction) (HCC)- Primary Presence of implantable cardioverter-defibrillator (ICD) Paroxysmal atrial fibrillation (HCC) Atrial fibrillation Essential hypertension Unspecified essential hypertension Hyponatremia Hyposmolality and/or hyponatremia Hospital discharge follow-up Other follow-up examination Tobacco abuse Tobacco use disorder Alcohol abuse Nondependent alcohol abuse, unspecified drinking behavior Apical mural thrombus Chronic hyponatremia- Primary Hyposmolality and/or hyponatremia Alcohol abuse Nondependent alcohol abuse, unspecified drinking behavior Tobacco abuse Tobacco use disorder Colon cancer screening Special screening for malignant neoplasms, colon Need for vaccination for pneumococcus Anemia in other chronic diseases classified elsewhere Chronic bronchitis, unspecified chronic bronchitis type (HCC) Cervical spondylosis- Primary Cervical spondylosis without myelopathy Hyponatremia Hyposmolality and/or hyponatremia Paroxysmal atrial fibrillation (HCC) Atrial fibrillation HFrEF (heart failure with reduced ejection fraction) (HCC) Current moderate episode of major depressive disorder without prior episode (CMS/HCC) Chronic bronchitis, unspecified chronic bronchitis type (HCC) Essential hypertension Unspecified essential hypertension Alcohol abuse Nondependent alcohol abuse, unspecified drinking behavior Chronic HFrEF (heart failure with reduced ejection fraction) (HCC)- Primary HFrEF (heart failure with reduced ejection fraction) (HCC) Permanent atrial fibrillation (HCC) Atrial fibrillation On continuous oral anticoagulation Presence of cardiac resynchronization therapy defibrillator (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) Personal history of smoking Personal history of tobacco use, presenting hazards to health Persistent depressive disorder documented in [facility] Diagnosis Chronic bronchitis, unspecified chronic bronchitis type (HCC)- Primary Needs flu shot Need for prophylactic vaccination and inoculation against influenza Essential hypertension Unspecified essential hypertension Paroxysmal atrial fibrillation (HCC) Atrial fibrillation Current moderate episode of major depressive disorder without prior episode (CMS/HCC) Alcohol abuse Nondependent alcohol abuse, unspecified drinking behavior HFrEF (heart failure with reduced ejection fraction) (HCC)- Primary Presence of implantable cardioverter-defibrillator (ICD) Paroxysmal atrial fibrillation (HCC) Atrial fibrillation Essential hypertension Unspecified essential hypertension Hyponatremia Hyposmolality and/or hyponatremia Hospital discharge follow-up Other follow-up examination Tobacco abuse Tobacco use disorder Alcohol abuse Nondependent alcohol abuse, unspecified drinking behavior Apical mural thrombus Chronic hyponatremia- Primary Hyposmolality and/or hyponatremia Alcohol abuse Nondependent alcohol abuse, unspecified drinking behavior Tobacco abuse Tobacco use disorder Colon cancer screening Special screening for malignant neoplasms, colon Need for vaccination for pneumococcus Anemia in other chronic diseases classified elsewhere Chronic bronchitis, unspecified chronic bronchitis type (HCC) Cervical spondylosis- Primary Cervical spondylosis without myelopathy Hyponatremia Hyposmolality and/or hyponatremia Paroxysmal atrial fibrillation (HCC) Atrial fibrillation HFrEF (heart failure with reduced ejection fraction) (HCC) Current moderate episode of major depressive disorder without prior episode (CMS/HCC) Chronic bronchitis, unspecified chronic bronchitis type (HCC) Essential hypertension Unspecified essential hypertension Alcohol abuse Nondependent alcohol abuse, unspecified drinking behavior Chronic HFrEF (heart failure with reduced ejection fraction) (HCC)- Primary HFrEF (heart failure with reduced ejection fraction) (HCC) Permanent atrial fibrillation (HCC) Atrial fibrillation On continuous oral anticoagulation Presence of cardiac resynchronization therapy defibrillator (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) Personal history of smoking Personal history of tobacco use, presenting hazards to health Acute metabolic encephalopathy- Primary Acute metabolic encephalopathy Acute respiratory failure with hypoxia (HCC) Severe sepsis (HCC) Pneumonia of left lower lobe due to infectious organism Seizure-like activity (HCC) Alcohol withdrawal syndrome, with delirium (HCC) Hyponatremia Hyposmolality and/or hyponatremia HFrEF (heart failure with reduced ejection fraction) (HCC) Presence of cardiac resynchronization therapy defibrillator (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) Bacteremia Skin tear of right forearm without complication, initial encounter Pericardial effusion Unspecified disease of pericardium Bloodstream infection HFrEF (heart failure with reduced ejection fraction) (HCC) Presence of cardiac resynchronization therapy defibrillator (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) HFrEF (heart failure with reduced ejection fraction) (HCC) Presence of cardiac resynchronization therapy defibrillator (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) Bacteremia [facility] Diagnosis Chronic bronchitis, unspecified chronic bronchitis type (HCC)- Primary Needs flu shot Need for prophylactic vaccination and inoculation against influenza Essential hypertension Unspecified essential hypertension Paroxysmal atrial fibrillation (HCC) Atrial fibrillation Current moderate episode of major depressive disorder without prior episode (CMS/HCC) Alcohol abuse Nondependent alcohol abuse, unspecified drinking behavior HFrEF (heart failure with reduced ejection fraction) (HCC)- Primary Presence of implantable cardioverter-defibrillator (ICD) Paroxysmal atrial fibrillation (HCC) Atrial fibrillation Essential hypertension Unspecified essential hypertension Hyponatremia Hyposmolality and/or hyponatremia Hospital discharge follow-up Other follow-up examination Tobacco abuse Tobacco use disorder Alcohol abuse Nondependent alcohol abuse, unspecified drinking behavior Apical mural thrombus Chronic hyponatremia- Primary Hyposmolality and/or hyponatremia Alcohol abuse Nondependent alcohol abuse, unspecified drinking behavior Tobacco abuse Tobacco use disorder Colon cancer screening Special screening for malignant neoplasms, colon Need for vaccination for pneumococcus Anemia in other chronic diseases classified elsewhere Chronic bronchitis, unspecified chronic bronchitis type (HCC) Cervical spondylosis- Primary Cervical spondylosis without myelopathy Hyponatremia Hyposmolality and/or hyponatremia Paroxysmal atrial fibrillation (HCC) Atrial fibrillation HFrEF (heart failure with reduced ejection fraction) (HCC) Current moderate episode of major depressive disorder without prior episode (CMS/HCC) Chronic bronchitis, unspecified chronic bronchitis type (HCC) Essential hypertension Unspecified essential hypertension Alcohol abuse Nondependent alcohol abuse, unspecified drinking behavior Chronic HFrEF (heart failure with reduced ejection fraction) (HCC)- Primary HFrEF (heart failure with reduced ejection fraction) (HCC) Permanent atrial fibrillation (HCC) Atrial fibrillation On continuous oral anticoagulation Presence of cardiac resynchronization therapy defibrillator (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) Personal history of smoking Personal history of tobacco use, presenting hazards to health Shortness of breath- Primary Shortness of breath Hypoxemia Acute on chronic congestive heart failure, unspecified heart failure type (HCC) COPD exacerbation (HCC) Obstructive chronic bronchitis with exacerbation Chronic systolic heart failure (HCC) Chronic systolic heart failure Chronic bronchitis, unspecified chronic bronchitis type (HCC) Anemia in other chronic diseases classified elsewhere Transaminitis Nonspecific elevation of levels of transaminase or lactic acid dehydrogenase (LDH) Osteoarthritis of right shoulder, unspecified osteoarthritis type Pulmonary HTN (HCC) Prolonged QT interval Nonspecific abnormal electrocardiogram (ECG) (EKG) Permanent atrial fibrillation (HCC) Atrial fibrillation Sepsis (HCC) MRSA bacteremia Heart failure with improved ejection fraction (HFimpEF) (HCC) Chronic hyponatremia Hyposmolality and/or hyponatremia DELORES (obstructive sleep apnea) Obstructive sleep apnea (adult) (pediatric) Transaminitis Nonspecific elevation of levels of transaminase or lactic acid dehydrogenase (LDH) COPD exacerbation (HCC) Obstructive chronic bronchitis with exacerbation Osteoarthritis of right shoulder documented in this [facility]* Diagnosis Chronic bronchitis, unspecified chronic bronchitis type (HCC)- Primary Needs flu shot Need for prophylactic vaccination and inoculation against influenza Essential hypertension Unspecified essential hypertension Paroxysmal atrial fibrillation (HCC) Atrial fibrillation Current moderate episode of major depressive disorder without prior episode (CMS/HCC) Alcohol abuse Nondependent alcohol abuse, unspecified drinking behavior HFrEF (heart failure with reduced ejection fraction) (HCC)- Primary Presence of implantable cardioverter-defibrillator (ICD) Paroxysmal atrial fibrillation (HCC) Atrial fibrillation Essential hypertension Unspecified essential hypertension Hyponatremia Hyposmolality and/or hyponatremia Hospital discharge follow-up Other follow-up examination Tobacco abuse Tobacco use disorder Alcohol abuse Nondependent alcohol abuse, unspecified drinking behavior Apical mural thrombus Chronic hyponatremia- Primary Hyposmolality and/or hyponatremia Alcohol abuse Nondependent alcohol abuse, unspecified drinking behavior Tobacco abuse Tobacco use disorder Colon cancer screening Special screening for malignant neoplasms, colon Need for vaccination for pneumococcus Anemia in other chronic diseases classified elsewhere Chronic bronchitis, unspecified chronic bronchitis type (HCC) Cervical spondylosis- Primary Cervical spondylosis without myelopathy Hyponatremia Hyposmolality and/or hyponatremia Paroxysmal atrial fibrillation (HCC) Atrial fibrillation HFrEF (heart failure with reduced ejection fraction) (HCC) Current moderate episode of major depressive disorder without prior episode (CMS/HCC) Chronic bronchitis, unspecified chronic bronchitis type (HCC) Essential hypertension Unspecified essential hypertension Alcohol abuse Nondependent alcohol abuse, unspecified drinking behavior Chronic HFrEF (heart failure with reduced ejection fraction) (HCC)- Primary HFrEF (heart failure with reduced ejection fraction) (HCC) Permanent atrial fibrillation (HCC) Atrial fibrillation On continuous oral anticoagulation Presence of cardiac resynchronization therapy defibrillator (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) Personal history of smoking Personal history of tobacco use, presenting hazards to health Heart failure with improved ejection fraction (HFimpEF) (HCC)- Primary Encounter for removal of cardiac resynchronization therapy defibrillator (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) Permanent atrial fibrillation (HCC) Atrial fibrillation Chronic hyponatremia Hyposmolality and/or hyponatremia Elevated LFTs Other abnormal blood chemistry documented in this encounter Natalie Webster for referral (narrative)* Consultation (Urgent) - Pending Review Specialty Diagnoses / Procedures Referred By Darlene guan Referred To Contact Orthopedic Surgery Diagnoses Other closed displaced fracture of proximal end of left humerus, initial encounter Kalia Foote MD [address] [place] [address] [facility] [address] [address] Referral ID Status Reason Start Date Expiration Date Visits Requested Visits Authorized [id number] Pending Review Specialty Services Required 12/26/2022 12/26/2023 1 1 [facility] (n[facility]ative)* Consultation (Routine) - Pending Review Specialty Diagnoses / Procedures Referred By Contac t Referred To Contact Pulmonology Diagnoses Chronic bronchitis, unspecified chronic bronchitis type (HCC) Procedures [facility]PAT[facility] 60-74 MINUTES Jamia Sierra MD [address] [place] [address] [facility] [address] [facility] [address] [place] [address] Referral ID Status Reason Start Date Expiration Date Visits Requested Visits Authorized [id number] Pending Review Specialty Services Required 01/07/2023 01/07/2024 1 1 * Consultation (Routine) - Pending Review Specialty Diagnoses / Procedures Referred By Contac t Referred To Contact Gastroenterology Diagnoses Colon cancer screening Procedures [facility]PATIENT [facility] 60-74 MINUTES Jamia Sierra MD [address] [place] [address] Jama Blackman MD [address] [facility] [address] [place] [address] Referral ID Status Reason Start Date Expiration Date Visits Requested Visits Authorized [id number] Pending Review Specialty Services Required 01/07/2023 01/07/2024 1 1 [facility] for referral (narrative)* Consultation (Routine) - Pending Review Specialty Diagnoses / Procedures Referred By Contac t Referred To Contact Pulmonology Diagnoses Chronic bronchitis, unspecified chronic bronchitis type (HCC) Procedures [facility] OFF[facility]OUTPATIENT [facility] 60-74 MINUTES Jamia Sierra MD [address] [place] [address] [facility] [address] [place] [address] Referral ID Status Reason Start Date Expiration Date Visits Requested Visits Authorized [id number] Pending Review Specialty Services Required 01/07/2023 01/07/2024 1 1 * Consultation (Routine) - Pending Review Specialty Diagnoses / Procedures Referred By Contac t Referred To Contact Gastroenterology Diagnoses Colon cancer screening Procedures [facility] OFF[facility]OUTPATIENT [facility] 60-74 MINUTES Jamia Sierra MD [address] [place] [address] Jama Blackman MD [address] [place] [address] Referral ID Status Reason Start Date Expiration Date Visits Requested Visits Authorized [id number] Pending Review Specialty Services Required 01/07/2023 01/07/2024 1 1 [facility] Consultation (Routine) - Pending Review Specialty Diagnoses / Procedures Referred By Contac t Referred To Contact Sports Medicine Diagnoses Cervical spondylosis Procedures [facility]OUTPATIENT [facility] 60 MINUTES Sukumar South MD [address] [place] [address] [facility] [address] [place] [address] Referral ID Status Reason Start Date Expiration Date Visits Requested Visits Authorized [id number] Pending Review Specialty Services Required 02/17/2024 02/16/2025 1 1 [facility] (narrative)* Consultation (Routine) - Pending Review Specialty Diagnoses / Procedures Referred By Contac t Referred To Contact Pulmonology Diagnoses Chronic bronchitis, unspecified chronic bronchitis type (HCC) Procedures [facility] OFFICE/OUTPATIENT [facility] 60 MINUTES Jamia Sierra MD [address] [place] [address] [facility] [address] [place] [address] Referral ID Status Reason Start Date Expiration Date Visits Requested Visits Authorized [id number] Pending Review Specialty Services Required 03/02/2024 03/02/2025 1 1 [facility] Assessments Diagnosis Closed nondisplaced fracture of sternal end of left clavicle, initial encounter Diagnosis Osteoporosis, unspecified osteoporosis type, unspecified pathological fracture presence Compression fracture of thoracic vertebra with routine healing, unspecified thoracic vertebral level, subsequent encounter Diagnosis Lung nodule Solitary pulmonary nodule Diagnosis History of adenomatous polyp of colon Personal history of colonic polyps Chronic obstructive pulmonary disease, unspecified COPD type (HCC) Diagnosis Non-ischemic cardiomyopathy (HCC) Other primary cardiomyopathies Atrial flutter, unspecified type (HCC) Diagnosis Pre-op testing Preoperative examination, unspecified Diagnosis Chronic systolic congestive heart failure (HCC) Chronic systolic heart failure Diagnosis Dilated cardiomyopathy (HCC) Other primary cardiomyopathies Diagnosis Chronic bilateral low back pain without sciatica Diagnosis Displaced fracture of shaft of left clavicle, initial encounter for closed fracture- Primary Contusion of left chest wall, initial encounter Contusion of left side of back, initial encounter Advance Directives No Advanced Directives Records Found Date Activated Date Inactivated Comments 05/20/2025 11:38 PM 06/02/2025 8:51 PM Date Activated Date Inactivated Comments 11/01/2024 8:57 PM 11/03/2024 7:40 PM Date Activated Date Inactivated Comments 09/10/2024 6:32 PM 09/16/2024 7:06 PM Date Activated Date Inactivated Comments 08/19/2024 10:04 PM 08/22/2024 6:05 PM Date Activated Date Inactivated Comments 02/13/2024 9:36 PM 02/17/2024 7:41 PM Date Activated Date Inactivated Comments 08/19/2024 10:04 PM 08/22/2024 6:05 PM Date Activated Date Inactivated Comments 02/13/2024 9:36 PM 02/17/2024 7:41 PM Date Activated Date Inactivated Comments 11/12/2023 12:40 AM 11/14/2023 4:32 PM Date Activated Date Inactivated Comments 12/29/2022 6:08 PM 01/01/2023 7:03 PM Date Activated Date Inactivated Comments 09/13/2022 3:29 AM 09/14/2022 3:03 PM Latest Code Status on File Code Status Date Activated Date Inactivated Comments Full Code 09/13/2022 3:29 AM Code Status History Code Status Date Activated Date Inactivated Comments Full Code 07/17/2022 2:45 AM 07/19/2022 6:12 PM Documents on File Type Date Recorded Patient Call Center Operations Manager Expl anation Advance Directives and Living Will Power of Rehabilitation Services Director Latest Code Status on File Code Status Date Activated Date Inactivated Comments Full Code 01/31/2016 4:48 PM 02/03/2016 3:42 PM Documents on File Type Date Recorded Patient Call Center Operations Manager Expl anation Advance Directives and Living Will decline paperwork 09/15/19-AT Power of Rehabilitation Services Director decline pa per 09/15/19-AT Latest Code Status on File Code Status Date Activated Date Inactivated Comments Full Code 10/27/2019 8:27 AM Full Code 01/31/2016 4:48 PM 02/03/2016 3:42 PM Documents on File Type Date Recorded Patient Call Center Operations Manager Expl anation Advance Directives and Living Will decline paperwork 09/15/19-AT Power of Rehabilitation Services Director decline pa per 09/15/19-AT Latest Code Status on File Code Status Date Activated Date Inactivated Comments Full Code 10/27/2019 8:27 AM 10/27/2019 1:15 PM Full Code 01/31/2016 4:48 PM 02/03/2016 3:42 PM Latest Code Status on File Code Status Date Activated Date Inactivated Comments Full Code 10/27/2019 8:27 AM 10/27/2019 1:15 PM Documents on File Type Date Recorded Patient Call Center Operations Manager Expl anation ACP-Advance Directive declin e paperwork 09/15/19-AT ACP-Power of Rehabilitation Services Director declin e paper 09/15/19-AT Latest Code Status on File Code Status Date Activated Date Inactivated Comments Full Code 05/25/2020 7:58 AM Full Code 10/27/2019 8:27 AM 10/27/2019 1:15 PM Latest Code Status on File Code Status Date Activated Date Inactivated Comments Full Code 05/25/2020 7:58 AM 05/25/2020 1:23 PM Latest Code Status on File Code Status Date Activated Date Inactivated Comments Full Code 07/01/2020 11:59 AM Full Code 07/01/2020 7:24 AM 07/01/2020 11:59 AM Full Code 05/25/2020 7:58 AM 05/25/2020 1:23 PM Documents on File Type Date Recorded Patient Call Center Operations Manager Expl anation ACP-Advance Directive declin e paperwork 09/15/19-AT ACP-Power of Rehabilitation Services Director declin e paper 09/15/19-AT Latest Code Status on File Code Status Date Activated Date Inactivated Comments Full Code 07/01/2020 11:59 AM 07/02/2020 3:18 PM Full Code 07/01/2020 7:24 AM 07/01/2020 11:59 AM Full Code 05/25/2020 7:58 AM 05/25/2020 1:23 PM Full Code 10/27/2019 8:27 AM 10/27/2019 1:15 PM Latest Code Status on File Code Status Date Activated Date Inactivated Comments Full Code 07/01/2020 11:59 AM 07/02/2020 3:18 PM Documents on File Type Date Recorded Patient Call Center Operations Manager Expl anation Advance Directives and Living Will Power of Rehabilitation Services Director Latest Code Status on File Code Status Date Activated Date Inactivated Comments Full Code 01/31/2016 4:48 PM 02/03/2016 3:42 PM Documents on File Type Date Recorded Patient Call Center Operations Manager Expl anation ACP-Advance Directive declin e paperwork 09/05/21 RV ACP-Power of Rehabilitation Services Director see [facility] Latest Code Status on File Code Status Date Activated Date Inactivated Comments Full Code 08/23/2021 7:31 AM 08/25/2021 8:31 PM Full Code 07/24/2021 11:38 AM 07/25/2021 8:15 AM Full Code 07/24/2021 8:15 AM 07/24/2021 11:38 AM Full Code 07/01/2020 11:59 AM 07/02/2020 3:18 PM Latest Code Status on File Code Status Date Activated Date Inactivated Comments Full Code 09/13/2022 3:29 AM 09/14/2022 3:03 PM Latest Code Status on File Code Status Date Activated Date Inactivated Comments Full Code 09/13/2022 3:29 AM 09/14/2022 3:03 PM Code Status History Code Status Date Activated Date Inactivated Comments Full Code 07/17/2022 2:45 AM 07/19/2022 6:12 PM Latest Code Status on File Code Status Date Activated Date Inactivated Comments Full Code 12/29/2022 6:08 PM 01/01/2023 7:03 PM Code Status History Code Status Date Activated Date Inactivated Comments Full Code 09/13/2022 3:29 AM 09/14/2022 3:03 PM Full Code 07/17/2022 2:45 AM 07/19/2022 6:12 PM Latest Code Status on File Code Status Date Activated Date Inactivated Comments Full Code 12/29/2022 6:08 PM 01/01/2023 7:03 PM Code Status History Code Status Date Activated Date Inactivated Comments Full Code 09/13/2022 3:29 AM 09/14/2022 3:03 PM Full Code 07/17/2022 2:45 AM 07/19/2022 6:12 PM Latest Code Status on File Code Status Date Activated Date Inactivated Comments Full Code 11/12/2023 12:40 AM 11/14/2023 4:32 PM Code Status History Code Status Date Activated Date Inactivated Comments Full Code 12/29/2022 6:08 PM 01/01/2023 7:03 PM Full Code 09/13/2022 3:29 AM 09/14/2022 3:03 PM Full Code 07/17/2022 2:45 AM 07/19/2022 6:12 PM Latest Code Status on File Code Status Date Activated Date Inactivated Comments Full Code 02/13/2024 9:36 PM 02/17/2024 7:41 PM Code Status History Code Status Date Activated Date Inactivated Comments Full Code 11/12/2023 12:40 AM 11/14/2023 4:32 PM Full Code 12/29/2022 6:08 PM 01/01/2023 7:03 PM Full Code 09/13/2022 3:29 AM 09/14/2022 3:03 PM Full Code 07/17/2022 2:45 AM 07/19/2022 6:12 PM Date Activated Date Inactivated Comments 02/13/2024 9:36 PM 02/17/2024 7:41 PM Date Activated Date Inactivated Comments 11/12/2023 12:40 AM 11/14/2023 4:32 PM Date Activated Date Inactivated Comments 12/29/2022 6:08 PM 01/01/2023 7:03 PM Date Activated Date Inactivated Comments 09/13/2022 3:29 AM 09/14/2022 3:03 PM Date Activated Date Inactivated Comments 07/17/2022 2:45 AM 07/19/2022 6:12 PM Date Activated Date Inactivated Comments 02/13/2024 9:36 PM 02/17/2024 7:41 PM Date Activated Date Inactivated Comments 11/12/2023 12:40 AM 11/14/2023 4:32 PM Date Activated Date Inactivated Comments 12/29/2022 6:08 PM 01/01/2023 7:03 PM Date Activated Date Inactivated Comments 09/13/2022 3:29 AM 09/14/2022 3:03 PM Date Activated Date Inactivated Comments 07/17/2022 2:45 AM 07/19/2022 6:12 PM Latest Code Status on File Code Status Date Activated Date Inactivated Comments Full Code 07/17/2022 2:45 AM 07/19/2022 6:12 PM Date Activated Date Inactivated Comments 08/19/2024 10:04 PM Date Activated Date Inactivated Comments 09/10/2024 6:32 PM 09/16/2024 7:06 PM Date Activated Date Inactivated Comments 08/19/2024 10:04 PM 08/22/2024 6:05 PM Date Activated Date Inactivated Comments 02/13/2024 9:36 PM 02/17/2024 7:41 PM Date Activated Date Inactivated Comments 11/12/2023 12:40 AM 11/14/2023 4:32 PM Date Activated Date Inactivated Comments 12/29/2022 6:08 PM 01/01/2023 7:03 PM Date Activated Date Inactivated Comments 11/01/2024 8:57 PM 11/03/2024 7:40 PM Date Activated Date Inactivated Comments 09/10/2024 6:32 PM 09/16/2024 7:06 PM Date Activated Date Inactivated Comments 08/19/2024 10:04 PM 08/22/2024 6:05 PM Date Activated Date Inactivated Comments 02/13/2024 9:36 PM 02/17/2024 7:41 PM Date Activated Date Inactivated Comments 11/12/2023 12:40 AM 11/14/2023 4:32 PM Date Activated Date Inactivated Comments 05/20/2025 11:38 PM Date Activated Date Inactivated Comments 05/20/2025 11:38 PM 06/02/2025 8:51 PM Date Activated Date Inactivated Comments 11/01/2024 8:57 PM 11/03/2024 7:40 PM Date Activated Date Inactivated Comments 09/10/2024 6:32 PM 09/16/2024 7:06 PM Date Activated Date Inactivated Comments 08/19/2024 10:04 PM 08/22/2024 6:05 PM Date Activated Date Inactivated Comments 02/13/2024 9:36 PM 02/17/2024 7:41 PM Date Activated Date Inactivated Comments 06/04/2025 4:05 AM Date Activated Date Inactivated Comments 06/04/2025 4:05 AM 06/04/2025 4:05 AM Date Activated Date Inactivated Comments 05/20/2025 11:38 PM 06/02/2025 8:51 PM Date Activated Date Inactivated Comments 11/01/2024 8:57 PM 11/03/2024 7:40 PM Date Activated Date Inactivated Comments 09/10/2024 6:32 PM 09/16/2024 7:06 PM Date Activated Date Inactivated Comments 06/04/2025 4:05 AM 06/10/2025 10:29 PM Date Activated Date Inactivated Comments 06/04/2025 4:05 AM 06/04/2025 4:05 AM Date Activated Date Inactivated Comments 05/20/2025 11:38 PM 06/02/2025 8:51 PM Date Activated Date Inactivated Comments 11/01/2024 8:57 PM 11/03/2024 7:40 PM Date Activated Date Inactivated Comments 09/10/2024 6:32 PM 09/16/2024 7:06 PM Date Activated Date Inactivated Comments 06/04/2025 4:05 AM 06/10/2025 10:29 PM Discharge Instructions * Instructions* Eunice Bowen I, RN - 10/27/2019 Colonoscopy: What to expect at home ACTIVITY: DO NOT DRIVE, OPERATE MACHINERY, OR DRINK ANY ALCOHOL TODAY. Avoid making critical decisions, signing legal documents, or performing any activity that requires alertness for the rest of the day. You may be bloated or have gas pains since air was introduced into the colon for the procedure. Youmay need to pass the gas throughout the day. You may experience a small amount of rectal bleeding; this can be normal after your colonoscopy. Notify your physician if the bleeding is enough to saturate your clothes. Rest the remainder of the day. You may resume normal activity tomorrow. You may return to work tomorrow. DIET: You may resume a normal diet unless notified or recommended by your physician. You may be eager to eat a large meal after fasting, but it is a good idea to start with light mealsand ease into solid foods the first day. (*) If your stomach is upset, try clear liquids and bland, low-fat foods like plain toast or rice. Drink plenty of fluids for the first 24 hours (unless your physician states otherwise). MEDICATION: Resume your normal home medications unless notified or recommended by your physician. If you take blood thinners (such as Coumadin, Eliquis, Plavix, Aspirin, etc.) or anti-inflammatory medications (Advil, Motrin, Aleve, etc.), ask your physician when you may resume these medications. FOLLOW-UP APPOINTMENT: Follow up with or call your physician as needed. When to call for help: Call your doctor IMMEDIATELY or seek medical care if you experience: ? Severe pain or vomiting ? A large amount (filling the toilet) of maroon, bloody stools or tar-like stools ? Your belly is swollen and firm with severe pain ? A fever greater than 101 degrees ? Redness or swelling of arm from the IV site for more than 48 hours ? Sudden onset of chest pain or shortness of breath ? If you become extremely dizzy or pass out (lose consciousness) IF YOU ARE UNABLE TO REACH YOUR PHYSICIAN GO TO NEAREST EMERGENCY DEPARTMENT documented in this encounter* Attachments The following attachments cannot be sent through Care Everywhere. * Bronchoscopy: Post-op (New Zealander) documented in this encounter* Instructions* Layne Silver, RN - 05/25/2020 Electrical Cardioversion: What to Expect at Home Your Recovery Electrical cardioversion is a treatment for an abnormal heartbeat, such as atrial fibrillation, supraventricular tachycardia, or ventricular tachycardia (VT). It uses a brief electrical shock to reset your heart's rhythm. After cardioversion, you may have redness, like a sunburn, where the patches were. The medicines you got to make you sleepy may make you feel drowsy for the rest of the day. Your doctor may have you take medicines to help the heart beat normally and to prevent blood clots. This care sheet gives you a general idea about how long it will take for you to recover. But each person recovers at a different pace. Follow the steps below to feel better as quickly as possible. How can you care for yourself at home? Medicines Be safe with medicines. Take your medicines exactly as prescribed. Call your doctor if you think you are having a problem with your medicine. You may take one or more of the following medicines: ? Rate-control medicines to slow the heart rate. These include beta-blockers, calcium channel blockers, and digoxin. ? Rhythm control medicines that help the heart keep a normal rhythm. ? Blood thinners, also called anticoagulants, which help prevent blood clots. You will get more details on the specific medicines your doctor prescribes. Be sure you know how totake your medicines safely. Do not take any vitamins, ywie-tdt-qukegmr medicines, or herbal products without talking to your doctor first. Exercise Start light exercise if your doctor says that it is okay. Even a small amount will help you get stronger, have more energy, and manage your stress. Walking is an easy way to get exercise. Start out by walking a little more than you did in the hospital. Bit by bit, increase the amount you walk. When you exercise, watch for signs that your heart is working too hard. You are pushing too hard ifyou cannot talk while you are exercising. If you become short of breath or dizzy or have chest pain, sit down and rest right away. Check your pulse regularly. Place two fingers on the artery at the palm side of your wrist in line with your thumb. If your heartbeat seems uneven or fast, talk to your doctor. Other instructions Ask your doctor when you can drive again. Do not smoke. If you need help quitting, talk to your doctor about stop-smoking programs and medicines. These can increase your chances of quitting for good. Limit alcohol. Follow-up care is a singh part of your treatment and safety. Be sure to make and go to all appointments, and call your doctor if you are having problems. It's also a good idea to know your test resultsand keep a list of the medicines you take. When should you call for help? [id number] anytime you think you may need emergency care. For example, call if: You passed out (lost consciousness). You have chest pain or pressure. This may occur with: ? Sweating. ? Shortness of breath. ? Nausea or vomiting. ? Pain that spreads from the chest to the neck, jaw, or one or both shoulders or arms. ? A fast or uneven pulse. After calling 911, the sludge control operator may tell you to chew 1 adult-strength or 2 to 4 low-dose aspirin. Wait for an ambulance. Do not try to drive yourself. You have symptoms of a stroke. These may include: ? Sudden numbness, tingling, weakness, or loss of movement in your face, arm, or leg, especially ononly one side of your body. ? Sudden vision changes. ? Sudden trouble speaking. ? Sudden confusion or trouble understanding simple statements. ? Sudden problems with walking or balance. ? A sudden, severe headache that is different from past headaches. Call your doctor now or seek immediate medical care if: You feel dizzy or lightheaded, or you feel like you may faint. You have a fast or irregular heartbeat. Watch closely for any changes in your health, and be sure to contact your doctor if you have any problems. Where can you learn more? Go to [email or web address] and sign in to your [employer] account. Enter A617 in the Search Health Information box to learn more about Electrical Cardioversion: What to Expect at Home. If you do not have an account, please click on the "Sign Up Now" link. Current as of: August 17, 2019 Content Version: 12.5 [employer]. Care instructions adapted under license by [employer]. If you have questions about a medical condition or this instruction, always ask your healthcare professional. [employer] disclaims any warranty or liability for your use of this information. documented in this encounter* Instructions* Kasey Shannon, DISTRIBUTION CENTER MANAGER - TUBE TURNER - 07/01/2020 Internal Cardioverter Defibrillator May Shower On: 07/03/20 May Remove Bandage On: 07/06/20 Come to the Emergency Room for bleeding that does not stop, increased swelling, or if your arm becomes cold. Call your doctor if you experience redness, swelling or drainage at incision site. Call your doctor if you experience fever or chills. Call your doctor if the incision site becomes increasingly painful to touch. Call your doctor if you experience chest pain, shortness of breath, dizziness, fainting spells, swelling in the ankles, or prolonged hiccoughing. You may take a sponge bath for the next 48 hours then ok to shower. No swimming or tub bathing for 6 weeks. Keep original bandage on until directed. Do NOT remove steri-strips (tape) from incision line if present. Once bandage is removed leave incision open to air. Do not apply lotions, ointments or creamsto incision site. Carry your ID card with you at all times. No driving until your doctor has given you permission to drive. You may resume sexual activity in 3 weeks Keep affected arm below shoulder level for 4 weeks. Do not raise affected arm over your head. Refer to your information booklet for additional information It is recommended that all family members be certified in CPR. Call the [facility] at [phone] if you have any questions regarding your incision, defibrillator, or follow-up appointments. Call the Device Clinic at [phone] if you have signs of a rapid heart rhythm, if you hear a beeping tone or vibration from your defibrillator. Call the Device Clinic at [phone] or your physician if you experience a shock. Be calm and liedown if you are alone. If you feel as though you are going to pass out call 911. No lifting, pulling, pushing more than 5 pounds with your affected arm for 4 weeks (a gallon of milk weighs 8 pounds) Keep affected arm below shoulder level for 4 weeks. Do not raise affected arm over your head. Avoid strong magnetic diggs such as power plants, arc welding, and large magnets. If someone is touching you when a shock is delivered, they will not be harmed but may experience a sensation similar to a bee sting. documented in this encounter* Attachments The following attachments cannot be sent through Care Everywhere. * Collarbone Fracture ([place] Zealander) * Chest Contusion ([place]) * Rib Contusion ([place]) documented in this encounter Reason for Referral Status Reason Specialty Diagnoses / Procedures Referre d By Contact Referred To Contact Open Radiology Diagnoses Osteoporosis, unspecified osteoporosis type, unspecified pathological fracture presence Compression fracture of thoracic vertebra with routine healing, unspecified thoracic vertebral level, subsequent encounter Procedures DEXA Bone Density Axial Skeleton Ashley Liriano, DISTRIBUTION CENTER MANAGER - SHEARING MACHINE FEEDER [address] [facility] [address] [place] [address] Status Reason Specialty Diagnoses / Procedures Referre d By Contact Referred To Contact Closed Radiology Diagnoses Lung nodule Procedures CT LUNG SCREENING DIAGNOSTIC 3-6 MONTH FOLLOW UP Madiha Stoll MD [address] [place] [address] Status Reason Specialty Diagnoses / Procedures Referre d By Contact Referred To Contact Open Cardiology Diagnoses Atrial flutter, unspecified type (HCC) Procedures Event Monitor Farnaz Davis, DISTRIBUTION CENTER MANAGER - TUBE TURNER [address] [address] Status Reason Specialty Diagnoses / Procedures Re ferred By Contact Referred To Contact Closed Cardiology Diagnoses Non-ischemic cardiomyopathy (HCC) Procedures Echo 2D Doppler Color Farnaz Davis DISTRIBUTION CENTER MANAGER - [facility] [address] [address] Status Reason Specialty Diagnoses / Procedures Re ferred By Contact Referred To Contact Closed Cardiology Diagnoses Dilated cardiomyopathy (HCC) Procedures Echo 2D Doppler Color Farnaz Davis DISTRIBUTION CENTER MANAGER - [facility] [address] [address] Status Reason Specialty Diagnoses / Procedures Referred By Contact Referred To Contact Open Specialty Services Required Orthopedic Surgery Diagnoses Displaced fracture of shaft of left clavicle, initial encounter for closed fracture Jose Freitas MD [address] [place] [address] [place] [id number] [address] [place] [address] Scheduling Instructions [facility] [address] [place] [address] Specialty Diagnoses / Procedures Referred By Contchelsey guan Referred To Contact Radiology Diagnoses Tobacco abuse Procedures VL AAA SCREENING Carmine Andrade MD [address] [place] [address] Referral ID Status Reason Start Date Expiration Date V isits Requested Visits Authorized [id number] Pending Review 09/05/2021 09/05/2022 1 1 Status Reason Specialty Diagnoses / Procedures Referre d By Contact Referred To Contact Open Radiology Diagnoses Encounter for screening for lung cancer Procedures CT lung screen [Initial/Annual] Luly Lagos MD [address] [place] [address] Specialty Diagnoses / Procedures Referred By Contac t Referred To Contact Physical Therapy Diagnoses Other closed displaced fracture of proximal end of left humerus, initial encounter Procedures [facility]OUTPATIENT [facility] 60-74 MINUTES Gilbert Mckinley PA-C [address] [address] Referral ID Status Reason Start Date Expiration Date Visits Requested Visits Authorized [id number] Authorized Eval and Treat 01/08/2023 07/07/2023 99 99 Specialty Diagnoses / Procedures Referred By Contac t Referred To Contact Cardiac Rehabilitation Diagnoses Mucopurulent chronic bronchitis (HCC) Procedures 6 minute walk test Bryan Tracey MD [address] [place] [address] Referral ID Status Reason Start Date Expiration Date V isits Requested Visits Authorized [id number] Authorized 04/15/2024 04/10/2025 1 1 Specialty Diagnoses / Procedures Referred By Contac t Referred To Contact Pulmonology Diagnoses Chronic bronchitis, unspecified chronic bronchitis type (HCC) Mucopurulent chronic bronchitis (HCC) Procedures Complete PFT pre and post bronchodilator with FENO Bryan Tracey MD [address] [place] [address] Referral ID Status Reason Start Date Expiration Date V isits Requested Visits Authorized [id number] Authorized 04/15/2024 04/10/2025 1 1 History of Present Illness * Whitley Simon RN - 02/25/2020 11:45 AM EDT BBS improved * Whitley Simon RN - 02/25/2020 11:28 AM EDT Breathing treatment initiated * Whitley Simon RN - 02/25/2020 11:18 AM EDT Dc instructions given to patient and visitor, verbalize understanding of plan for breathing treatment then dc * Whitley Simon RN - 02/25/2020 11:13 AM EDT gerard notified of rhonchi, diminished throughout, patient and visitor report seems like baseline, gerard ok for dc after breathing treatment * Whitley Simon RN - 02/25/2020 11:08 AM EDT gerard paged * Whitley Simon RN - 02/25/2020 10:50 AM EDT Visitor not found att, left message * Whitley Simon RN - 02/25/2020 10:32 AM EDT IS provided, weak ability * Whitley Simon RN - 02/25/2020 9:58 AM EDT Eyes open, Oral airway removed documented in this encounter* Layne Silver RN - 05/25/2020 11:15 AM EDT Instructions given with verbalized understanding pt and family slight redness noted from defib padsHas sinus rhythm with first degree block and pac Has medication available to help stop smoking and also has packet provided by hospital Has cut down and is trying to quit * Sarah Kohli RN - 05/25/2020 10:02 AM EDT Time in [facility] Lab: [id number] Pre-Procedure Events: Consent NPO status, allergies, and order verified?: Yes [facility]: spouse Patient belongings: None All belongings remain with patient under cart: Yes Anesthesia provider: MS VIEYRA per Anesthesia provider: 3 All procedure staff present at: Yes Time Out completed, please see flowsheet for Time Out details Defibrillator pads placed: anterior & posterior Patient position: supine A time out including patient and procedure verification took place with all staff, physician, and patient prior to start of case 1028 See Anesthesia Flowsheet for vitals, meds, and assessment. Intra-Procedure Events: Initial rhythm: Atrial fibrillation Synchronization confirmed: Yes 1st Shock delivered: [address] Almaraz at time: 1030 Post Cardioversion rhythm: SR with PACs Patient tolerated procedure well: Yes Cardioversion successful?: Yes Time defibrillator pads removed: 1032 Skin condition post-pad removal: [place]; intact Post-Procedure Events: Airway patent and OK to transfer to prep and recovery per anesthesia staff at time: 1036 Beside report by Sarah Kohli RN to prep and respiratory assistant BRICK POINTER recovered patient in room 22. * Harriet Wills RN - 05/25/2020 8:39 AM EDT Pt takes Eliquis BID at 10 am and 10 pm. Pt took 10 pm dose last night but has not yet taken today's 10 am dose. Attempted to notify Dr Almaraz. No call back as of this time. documented in this encounter* Yolanda Petty, PRIYA - TROY - 07/02/2020 9:48 AM EDT [facility] Cardiology - Progress Note Name: Krystina Markham Date of : 1955 Date of Service: 07/02/20 Chief Complaint/Brief History of Present Illness: Krystina Markham is a 65 y.o. male with history of severe LV dysfunction, ejection fraction 20% in the setting of hypertension and potential alcohol, prior cardiomyopathy. He has significant lung disease. He has a very wide left bundle branch block with class 3 congestive heart failure, biventricularICD was recommended. He had BiV ICD implant on 06/22/2020. Plan for discharge home today after seen by Dr Sin. Subjective: Today, patient states he feels good and ready to go home Past Medical History: has a past medical history of Alcohol consumption heavy, Asthma, CHF (congestive heart failure) ([facility]), COPD (chronic obstructive pulmonary disease) ([facility]), Cor, pulmonale, acute (HCC), Deep venous thrombosis (HCC), Depression, Hx of blood clots, Obesity, DELORES (obstructive sleep apnea), Pulmonary embolus ([facility]), Raynaud phenomenon, and Smoker. Surgical History: has a past surgical history that includes Finger amputation (Left); Abdomen surgery; Nose surgery; hernia repair; Colonoscopy (10/27/2019); Bronchoscopy (02/25/2020); and bronchoscopy (02/25/2020). Social History: reports that he has been smoking cigarettes. He started smoking about 48 years ago. He has a 22.00 pack-year smoking history. He has never used smokeless tobacco. He reports current alcohol use. He reports that he does not use drugs. Family History: family history includes Asthma in his father and sister; Defects in his father and sister; Cancer in his father and mother; Diabetes in his mother; Heart Disease in his brother and mother; Pacemaker in his mother. Allergies: Patient has no known allergies. Medications: magnesium oxide 400 mg Oral Daily [MAR Hold] sodium chloride flush 10 mL Intravenous 2 times per day lisinopril 10 mg Oral Daily metoprolol succinate 50 mg Oral BID montelukast 10 mg Oral Nightly sertraline 100 mg Oral Daily spironolactone 25 mg Oral Daily torsemide 20 mg Oral BID mometasone-formoterol 2 puff Inhalation BID And tiotropium 18 mcg Inhalation Daily [MAR Hold] sodium chloride Review of Systems: Review of Systems Constitutional: Negative for activity change, appetite change, diaphoresis, fatigue and unexpected weight change. HENT: Negative for facial swelling, hearing loss and trouble swallowing. Eyes: Negative for photophobia, discharge and visual disturbance. Respiratory: Negative for cough, chest tightness, shortness of breath, wheezing and stridor. Denies orthopnea Denies PND Cardiovascular: Negative for chest pain, palpitations and leg swelling. Gastrointestinal: Negative for abdominal distention, abdominal pain, blood in stool, constipation, diarrhea, nausea and vomiting. Endocrine: Negative for polydipsia, polyphagia and polyuria. Genitourinary: Negative for difficulty urinating, frequency and urgency. Musculoskeletal: Negative for arthralgias, gait problem and myalgias. Skin: Negative for pallor, rash and wound. Neurological: Negative for dizziness, syncope, weakness, light-headedness and numbness. Hematological: Negative for adenopathy. Does not bruise/bleed easily. Psychiatric/Behavioral: Negative for confusion and sleep disturbance. The patient is not nervous/anxious. Physical Examination: Vitals: BP 127/84 Pulse 90 Temp 98 F (36.7 C) (Oral) Resp 14 Ht 5' 9" (1.753 m) Wt 205 lb14.6 oz (93.4 kg) SpO2 95% BMI 30.41 kg/m Intake/Output Summary (Last 24 hours) at 07/02/2020 1054 Last data filed at 07/01/2020 1300 Gross per 24 hour Intake Output 325 ml Net -325 ml Admission weight: 205 lb 14.6 oz (93.4 kg) Patient Vitals for the past 96 hrs (Last 3 readings): Weight 07/01/20 0730 205 lb 14.6 oz (93.4 kg) Telemetry paced Physical Exam Constitutional: Appearance: Normal appearance. He is well-developed and normal weight. He is not diaphoretic. HENT: Head: Normocephalic. Right Ear: External ear normal. Left Ear: External ear normal. Nose: Nose normal. Mouth/Throat: Mouth: Mucous membranes are moist. Eyes: General: Lids are normal. No scleral icterus. Right eye: No discharge. Left eye: No discharge. Conjunctiva/sclera: Conjunctivae normal. Pupils: Pupils are equal, round, and reactive to light. Neck: Musculoskeletal: Normal range of motion. Thyroid: No thyromegaly. Vascular: No hepatojugular reflux or JVD. Trachea: No tracheal deviation. Cardiovascular: Rate and Rhythm: Normal rate and regular rhythm. Heart sounds: Normal heart sounds. No murmur. No friction rub. No gallop. Pulmonary: Effort: Pulmonary effort is normal. Breath sounds: Normal breath sounds. No wheezing or rales. Abdominal: General: Bowel sounds are normal. There is no distension. Palpations: Abdomen is soft. Tenderness: There is no abdominal tenderness. Musculoskeletal: Normal range of motion. Lymphadenopathy: Head: Right side of head: No submental, submandibular or tonsillar adenopathy. Left side of head: No submental, submandibular or tonsillar adenopathy. Skin: General: Skin is warm and dry. Capillary Refill: Capillary refill takes less than 2 seconds. Coloration: Skin is not jaundiced or pale. Findings: No rash. Neurological: Mental Status: He is alert and oriented to person, place, and time. Cranial Nerves: No cranial nerve deficit. Coordination: Coordination normal. Psychiatric: Behavior: Behavior normal. Thought Content: Thought content normal. Judgment: Judgment normal. Laboratory Tests: Lab Results Component Value Date WBC 8.1 06/22/2020 HGB 16.5 06/22/2020 HCT 49.9 06/22/2020 MCV 96.0 06/22/2020 PLT 239 06/22/2020 Lab Results Component Value Date NA 132 06/22/2020 K 4.5 06/22/2020 CL 94 06/22/2020 CO2 28 06/22/2020 BUN 30 06/22/2020 CREATININE 0.72 06/22/2020 GLUCOSE 107 06/22/2020 CALCIUM 9.6 06/22/2020 Lab Results Component Value Date MG 2.2 05/18/2020 Echo 03/29/2020 1. Left ventricle: Systolic function is severely decreased by visual assessment. The estimated ejection fraction is 20%. Akinesis of the entireanteroseptal and inferoseptal myocardium. Hypokinesis of the entire myocardium. Dyskinesis of the apical myocardium. Consider apical layered thrombus. 2. Left atrium: The atrium is severely dilated. 3. Right atrium: The atrium is severely dilated. 4. Mitral valve: There is moderate, 2+ regurgitation. The peak diastolic gradient is 3 mm Hg. 5. Tricuspid valve: There is moderate, 2+ regurgitation. Assessment and Plan: 1. Chronic, stable heart failure (HCC) with reduced EF secondary to NICM s/p BiV ICD implant Stage C, Class IIa I/o netural, no weights. VSS. Creat stable. continue ACEi, BB, spirolactone. euvolemic on torsemide. DSD to left chest. No redness, tenderness or swelling at site. Pain controlled. Device check completed and CXR pending. Device interrogation: Normal function. CXR: normal lead placement per Breakdown Person Teach: Completed Work letter written for 3 weeks, needs updated at next OV. 2. Paroxysmal atrial fibrillation , SR apirxiban for stroke prevention [id number] Score for Atrial Fibrillation Stroke Risk Risk Factors Component Value C CHF Yes 1 H HTN Yes 1 A2 Age >= 75 No, (65 y.o.) 0 D DM No 0 S2 Prior Stroke/TIA No 0 V Vascular Disease No 0 A Age 65-74 No, (65 y.o.) 0 Sc Sex male 0 [id number] Score 2 Score last updated 07/02/20 10:54 AM EDT Click here for a link to the UpToDate guideline "Atrial Fibrillation: Anticoagulation therapy to prevent embolization Disclaimer: Risk Score calculation is dependent on accuracy of patient problem list and past encounter diagnosis. Patient and family counseling: Patient was counseled on diet, activity, medications and signs and symptoms to report. Device instructions provided. The patient has been requested to complete daily weights and record. Site care instructions reviewed. Follow-up has been arranged and Written discharge instructions were provided Yolanda LOPEZ, CHFN [address] [place] [address] [phone] This note was generated using a voice recognition software program. Please excuse any transcriptionerrors that may have occurred. This note was electronically signed by PRIYA Castellon CNP on 07/02/20 documented in this encounter Summary Purpose Family History No Family History Records FoundNo Family History Records FoundNo Family History Records FoundNo Family History Records FoundNo Family History Records FoundNo Family History Records Found Additional Source Comments Reason for Visit (unrecogniz ed section and content) Reason Comments Back Pain workers comp Fall Reason Comments Med Refill Reason Comments Shoulder Pain Pt coming in for lef t shoulder pain & decreased ROM x3 days. States he is unsure of injury Reason Comments Head Injury Specialty Diagnoses / Procedures Referred By Contac t Referred To Contact Diagnoses Hyponatremia Procedures E87.1 Alice Smith MD [address] [place] [address] [facility] Icu [address] [place] [address] Referral ID Status Reason Start Date Expiration Date Visits Re quested Visits Authorized [id number] 1 1 Reason Onset Date Comments Hospital Follow-up 01/02/2023 Reason Comments transition of care Hospital follow up Reason Comments New Patient LEFT Humerus fx DOI 12/25/2022 Specialty Diagnoses / Procedures Referred By Contac t Referred To Contact Orthopedic Surgery Diagnoses Other closed displaced fracture of proximal end of left humerus, initial encounter Kalia Foote MD [address] [place] [address] Allan Duran MD 1 [facility] [address] [place] [address] Referral ID Status Reason Start Date Expiration Date Visits Requested Visits Authorized [id number] Pending Review Specialty Services Required 12/26/2022 12/26/2023 1 1 Reason Onset Date Comments OTHER 01/21/2023 Reason Comments COPD Exacerbation Specialty Diagnoses / Procedures Referred By Contac t Referred To Contact Diagnoses COPD exacerbation (HCC) Procedures / Siria Dumont MD [address] [address] [facility] Emergency Dept [address] [place] [address] Referral ID Status Reason Start Date Expiration Date Visits Re quested Visits Authorized [id number] 1 1 Reason Onset Date Comments Orders 02/14/2024 MRI/PPM form Reason Comments Shoulder Pain Pt presents to ED wi th c/o R shoulder pain x2 weeks. States that today his right hand started going numb yesterday and worsened around 0800 today. Denies h/o stroke. States that he is supposed to take Eliquis every day but hasn't been due to cost. Specialty Diagnoses / Procedures Referred By Contac t Referred To Contact Diagnoses Right arm numbness Stroke-like symptoms Procedures . Charlie Westfall MD [address] [place], [place] [address] [place] [address] [facility] 2e Cardiac Pcu [address] [place] [address] Referral ID Status Reason Start Date Expiration Date Visits Re quested Visits Authorized [id number] 1 1 Reason Comments Med Refill ER Follow-up Right shoulder pain Reason Comments New Patient REF[facility]AL-[facility] [place]- COPD W/EXACERBATION Specialty Diagnoses / Procedures Referred By Contac t Referred To Contact Pulmonology Diagnoses Chronic bronchitis, unspecified chronic bronchitis type (HCC) Procedures VA OFFICE/OUTPATIENT NEW HIGH MDM 60 MINUTES Jamia Sierra MD [address] [place] [address] [facility] [address] [place] [address] Referral ID Status Reason Start Date Expiration Date V isits Requested Visits Authorized [id number] Closed Specialty Services Required 03/02/2024 03/02/2025 1 1 Reason Onset Date Comments Other 04/17/2024 Scheduling Reason Onset Date Comments Other 05/13/2024 Reason Onset Date Comments Other 08/12/2024 Central schedcarrier clinic ng Reason Comments Letter for School/Work Needs work letter for calling off one day Reason Onset Date Comments Missed Appointment 09/12/2022 Reason Comments Shortness of Breath Specialty Diagnoses / Procedures Referred By Contac t Referred To Contact Diagnoses COPD exacerbation (CMS/HCC) (HCC) Procedures . Siria Dumont MD 155 [facility] [address] [place] [address] [facility] Emergency Dept [address] [place] [address] Referral ID Status Reason Start Date Expiration Date Visits Re quested Visits Authorized [id number] 1 1 Reason Onset Date Comments Hospital Follow-up 09/14/2022 Reason Comments Follow-up Congestive Heart Failure Reason Onset Date Comments OTHER 09/19/2022 Reason Onset Date Comments Care Management Outreach 11/07/2022 Reason Onset Date Comments Shortness of Breath 08/19/2024 Reason Comments Breathing Problem Edema Altered Mental Status Fall Specialty Diagnoses / Procedures Referred By Darlene t Referred To Contact Diagnoses Pneumonia of right lower lobe due to infectious organism Procedures . Jose M Wiggins MD [address] [place] [address] Phone: tel: fax: [facility] ED [address] [place] [address] Phone: tel: Referral ID Status Reason Start Date Expiration Date Visits Re quested Visits Authorized [id number] 1 1 Reason Onset Date Comments BPCI Outreach 09/04/2024 Reason Comments Groin Swelling Leg Swelling Fatigue the swelling has been a problem for at least a month Specialty Diagnoses / Procedures Referred By Darlene guan Referred To Contact Diagnoses Acute on chronic congestive heart failure, unspecified heart failure type (HCC) Procedures . Jose M Wiggins MD [address] [place] [address] Phone: tel: fax: [facility] ED [address] [place] [address] Phone: tel: Referral ID Status Reason Start Date Expiration Date Visits Re quested Visits Authorized [id number] 1 1 Reason Onset Date Comments Transitional Care Management Outreach 09/22/2024 Telephone Visit 09/22/2024 Reason Onset Date Comments Breathing Problem 09/24/2024 Reason Comments COPD Weight increase and wheezing Durable Medical Equipment Nebulizer mach ine. Cord damaged Reason Onset Date Comments Other 09/08/2024 Returning call Reason Onset Date Comments Other 10/02/2024 Labs Reason Comments Hospital Follow-up Congestive Heart Failure Reason Comments Altered Mental Status Pt presents to er from home via ems for altered mental status. Pt was found unresponsive by and was brought via ems. Pt presented to ems alert to verbal stimuli but confused to name, place, time and event. Pt presents to er alert to self only. Pt presents with normal speech and no stroke symptoms. Specialty Diagnoses / Procedures Referred By Darlene guan Referred To Contact Diagnoses Acute hypercapnic respiratory failure (HCC) Procedures . Jose M Wiggins MD [address] [place] [address] Phone: tel: fax: [facility] ED [address] [place] [address] Phone: tel: Referral ID Status Reason Start Date Expiration Date Visits Re quested Visits Authorized [id number] 1 1 Reason Onset Date Comments Other 11/05/2024 Reason Onset Date Comments Appointment Request 11/03/2024 Reason Comments Med Change Request Reason Comments Respiratory Distress Pt coming in from ome brought by [facility]. BS 147 by EMS. Pt lives at home alone and suppose to wear oxygen at home. EMS relates patient was found by ex today being minimally responsive and having difficulty breathing. Pt ex also relates pt may have taken 3 days worht of medication accidentally. Pt given solumedrol and duoneb in route. Specialty Diagnoses / Procedures Referred By Contac t Referred To Contact Diagnoses Hyponatremia Seizure-like activity (HCC) Acute respiratory failure with hypoxia (HCC) Severe sepsis (HCC) Alcohol withdrawal syndrome, with delirium (HCC) Pneumonia of left lower lobe due to infectious organism Acute metabolic encephalopathy Procedures . Michael Lange MD 525 [facility], [address] [address] Phone: tel: fax: [facility] Medical Intensive Care Unit MICU T3 [address] [place] [address] Phone: tel: Referral ID Status Reason Start Date Expiration Date Visits Re quested Visits Authorized [id number] 1 1 Reason Onset Date Comments Other 09/04/2024 Transitional car e questions Reason Comments Shortness of Breath Pt brought in by EMS for SOB from [facility]. Pt currently recently diagnosed with pneumonia receiving IV vancomycin. HX of COPD and CHF. Specialty Diagnoses / Procedures Referred By Contac t Referred To Contact Diagnoses Shortness of breath Hypoxemia COPD exacerbation (HCC) Acute on chronic congestive heart failure, unspecified heart failure type (HCC) Procedures .. Ashley Yang DO 155 [facility] [address] [place] [address] Phone: tel: fax: [facility] Cardiac Progressive Care Unit PCU 2E [address] [place] [address] Phone: tel: Referral ID Status Reason Start Date Expiration Date Visits Re quested Visits Authorized [id number] 1 1 Reason Comments Hospital Follow-up Reason Onset Date Comments Other 06/18/2025 Vanc level notif ication (unrecognized sect ion and content) No Status Records FoundNo Status Records FoundNo Status Records FoundNo Status Records FoundNo Status Records FoundNo Status Records Found INFORMATION SOURCE (unrecogn ized section and content) DATE CREATED AUTHOR 07/28/2021 [facility] DATE CREATED AUTHOR AUTHOR'S ORGANIZ ATION 09/29/2021 [facility] DATE CREATED AUTHOR AUTHOR'S ORGANIZ ATION 03/23/2022 [facility] DATE CREATED AUTHOR AUTHOR'S ORGANIZ ATION 05/22/2025 [facility] DATE CREATED AUTHOR AUTHOR'S ORGANIZ ATION 06/15/2025 [facility] DATE CREATED AUTHOR AUTHOR'S ORGANIZ ATION 07/02/2025 [facility] Care Teams (unrecognized sec tion and content) [employer] Revenue Officer Relationship Specialty Start Date End Date Jamia Sierra MD [address] [place] [address] PCP - General 03/02/21 [employer] Revenue Officer Relationship Specialty Start Date End Date Jamia Sierra MD [address] [place] [address] PCP - General Family Medicine 06/17/22 Jamia Sierra MD [address] [place] [address] Family Medicine 06/17/22 [employer]. Revenue Officer Relationship Specialty Start Date End Date Jamia Sierra MD [address] [place] [address] PCP - General Family Medicine 06/17/22 Jamia Sierra MD [address] [place] [address] Family Medicine 06/17/22 [employer].S. Revenue Officer Relationship Specialty Start Date End Date Jamia Sierra MD [address] [place] [address] PCP - General Family Medicine 06/17/22 Jamia Sierra MD [address] [place] [address] Family Medicine 06/17/22 [employer].S. Revenue Officer Relationship Specialty Start Date End Date Jamia Sierra MD [address] [place] [address] PCP - General Family Medicine 06/17/22 Jamia Sierra MD [address] [place] [address] Family Medicine 06/17/22 [employer].S. Revenue Officer Relationship Specialty Start Date End Date Jamia Sierra MD [address] [place] [address] PCP - General Family Medicine 06/17/22 Jamia Sierra MD [address] [place] [address] Family Medicine 06/17/22 U.S. Revenue Officer Relationship Specialty Start Date End Date Jamia Sierra MD [address] [place] [address] PCP - General Family Medicine 06/17/22 Jamia Sierra MD [address] [place] [address] Family Medicine 06/17/22 U.S. Revenue Officer Relationship Specialty Start Date End Date Jamia Sierra MD [address] [place] [address] PCP - General Family Medicine 06/17/22 Jamia Sierra MD [address] [place] [address] Family Medicine 06/17/22 U.S. Revenue Officer Relationship Specialty Start Date End Date Jamia Sierra MD [address] [place] [address] PCP - General Family Medicine 06/17/22 Jamia Sierra MD [address] [place] [address] Family Medicine 06/17/22 U.S. Revenue Officer Relationship Specialty Start Date End Date Jamia Sierra MD [address] [place] [address] PCP - General Family Medicine 06/17/22 Jamia Sierra MD [address] [place] [address] Family Medicine 06/17/22 U.S. Revenue Officer Relationship Specialty Start Date End Date Jamia Sierra MD [address] [place] [address] PCP - General Family Medicine 06/17/22 Jamia Sierra MD [address] [place] [address] Family Medicine 06/17/22 U.S. Revenue Officer Relationship Specialty Start Date End Date Jamia Sierra MD [address] [place] [address] PCP - General Family Medicine 06/17/22 Jamia Sierra MD [address] [place] [address] Family Medicine 06/17/22 U.S. Revenue Officer Relationship Specialty Start Date End Date Jamia Sierra MD [address] [place] [address] PCP - General Family Medicine 06/17/22 Jamia Sierra MD [address] [place] [address] Family Medicine 06/17/22 U.S. Revenue Officer Relationship Specialty Start Date End Date Jamia Sierra MD [address] [place] [address] PCP - General Family Medicine 06/17/22 Jamia Sierra MD [address] [place] [address] Family Medicine 06/17/22 [employer].S. Revenue Officer Relationship Specialty Start Date End Date Jamia Sierra MD [address] [place] [address] PCP - General Family Medicine 06/17/22 Jamia Sierra MD [address] [place] [address] Family Medicine 06/17/22 U.S. Revenue Officer Relationship Specialty Start Date End Date Jamia Sierra MD [address] [place] [address] PCP - General Family Medicine 06/17/22 Jamia Sierra MD [address] [place] [address] Family Medicine 06/17/22 U.S. Revenue Officer Relationship Specialty Start Date End Date Jamia Sierra MD [address] [place] [address] PCP - General Family Medicine 06/17/22 Jamia Sierra MD [address] [place] [address] Family Medicine 06/17/22 U.S. Revenue Officer Relationship Specialty Start Date End Date Jamia Sierra MD [address] [place] [address] PCP - General Family Medicine 06/17/22 Jamia Sierra MD [address] [place] [address] Family Medicine 06/17/22 U.S. Revenue Officer Relationship Specialty Start Date End Date Jamia Sierra MD [address] [place] [address] PCP - General Family Medicine 06/17/22 Jamia Sierra MD [address] [place] [address] Family Medicine 06/17/22 U.S. Revenue Officer Relationship Specialty Start Date End Date Jamia Sierra MD [address] [place] [address] PCP - General Family Medicine 06/17/22 Jamia Sierra MD [address] [place] [address] Family Medicine 06/17/22 U.S. Revenue Officer Relationship Specialty Start Date End Date Jamia Sierra MD [address] [place] [address] PCP - General Family Medicine 06/17/22 Jamia Sierra MD [address] [place] [address] Family Medicine 06/17/22 U.S. Revenue Officer Relationship Specialty Start Date End Date Jamia Sierra MD [address] [place] [address] PCP - General Family Medicine 06/17/22 Jamia Sierra MD [address] [place] [address] Family Medicine 06/17/22 U.S. Revenue Officer Relationship Specialty Start Date End Date Jamia Sierra MD [address] [place] [address] PCP - General Family Medicine 06/17/22 Jamia Sierra MD [address] [place] [address] Family Medicine 06/17/22 Tanika Dunn, staff physicianCollar Closer Lockstitch Research Assistant Member 02/20/24 [employer]. Revenue Officer Relationship Specialty Start Date End Date Jamia Sierra MD [address] [place] [address] PCP - General Family Medicine 06/17/22 Jamia Sierra MD [address] [place] [address] Family Medicine 06/17/22 Tanika Dunn, staff physicianCollar Closer Lockstitch Research Assistant Member 02/20/24 U.S. Revenue Officer Relationship Specialty Start Date End Date Jamia Sierra MD [address] [place] [address] PCP - General Family Medicine 06/17/22 Jamia Sierra MD [address] [place] [address] Family Medicine 06/17/22 Tanika Dunn, staff physicianCollar Closer Lockstitch Research Assistant Member 02/20/24 U.S. Revenue Officer Relationship Specialty Start Date End Date Pedro Subramanian MD [address] [place] [address] PCP - General Family Medicine 04/01/24 Tanika Dunn, staff physicianCollar Closer Lockstitch Research Assistant Member 02/20/24 U.S. Revenue Officer Relationship Specialty Start Date End Date Pedro Subramanian MD [address] [place] [address] PCP - General Family Medicine 04/01/24 Tanika Dunn, staff physicianCollar Closer Lockstitch Research Assistant Member 02/20/24 U.S. Revenue Officer Relationship Specialty Start Date End Date Pedro Subramanian MD [address] [place] [address] PCP - General Family Medicine 04/01/24 Tanika Dunn, staff physicianCollar Closer Lockstitch Research Assistant Member 02/20/24 U.S. Revenue Officer Relationship Specialty Start Date End Date Pedro Subramanian MD [address] [place] [address] PCP - General Family Medicine 04/01/24 U.S. Revenue Officer Relationship Specialty Start Date End Date Pedro Subramanian MD [address] [place] [address] PCP - General Family Medicine 04/01/24 U.S. Revenue Officer Relationship Specialty Start Date End Date Pedro Subramanian MD [address] [place] [address] PCP - General Family Medicine 04/01/24 U.S. Revenue Officer Relationship Specialty Start Date End Date Jamia Sierra MD [address] [place] [address] PCP - General Family Medicine 06/17/22 Jamia Sierra MD [address] [place] [address] Family Medicine 06/17/22 U.S. Revenue Officer Relationship Specialty Start Date End Date Jamia Sierra MD [address] [place] [address] PCP - General Family Medicine 06/17/22 Jamia Sierra MD [address] [place] [address] Family Medicine 06/17/22 U.S. Revenue Officer Relationship Specialty Start Date End Date Jamia Sierra MD [address] [place] [address] PCP - General Family Medicine 06/17/22 Jamia Sierra MD [address] [place] [address] Family Medicine 06/17/22 U.S. Revenue Officer Relationship Specialty Start Date End Date Jamia Sierra MD [address] [place] [address] PCP - General Family Medicine 06/17/22 Jamia Sierra MD [address] [place] [address] Family Medicine 06/17/22 U.S. Revenue Officer Relationship Specialty Start Date End Date aJmia Sierra MD [address] [place] [address] PCP - General Family Medicine 06/17/22 Jamia Sierra MD [address] [place] [address] Family Medicine 06/17/22 U.S. Revenue Officer Relationship Specialty Start Date End Date Jamia Sierra MD [address] [place] [address] PCP - General Family Medicine 06/17/22 Jamia Sierra MD [address] [place] [address] Family Medicine 06/17/22 Monica Lora, NGHIA 09/17/22 U.S. Revenue Officer Relationship Specialty Start Date End Date Jamia Sierra MD [address] [place] [address] PCP - General Family Medicine 06/17/22 Jamia Sierra MD [address] [place] [address] Family Medicine 06/17/22 Monica Lora, NGHIA 09/17/22 09/19/22 Tanika Dunn, staff physician 09/19/22 U.S. Revenue Officer Relationship Specialty Start Date End Date Jamia Sirera MD [address] [place] [address] PCP - General Family Medicine 06/17/22 Jamia Sierra MD [address] [place] [address] Family Medicine 06/17/22 Tanika Dunn, staff physician 09/19/22 U.S. Revenue Officer Relationship Specialty Start Date End Date Jamia Sierra MD [address] [place] [address] PCP - General Family Medicine 06/17/22 Jamia Sierra MD [address] [place] [address] Family Medicine 06/17/22 Monica Lora, NGHIA 09/17/22 09/19/22 Tanika Dunn, staff physician 09/19/22 Jennifer Howell Research Assistant Member 09/28/22 U.S. Revenue Officer Relationship Specialty Start Date End Date Jamia Sierra MD [address] [place] [address] PCP - General Family Medicine 06/17/22 Jamia Sierra MD [address] [place] [address] [facility] 06/17/22 Tanika Dunn, staff physician 09/19/22 11/07/22 Jennifer Howell Research Assistant Member 09/28/22 11/07/22 U.S. Revenue Officer Relationship Specialty Start Date End Date Pedro Subramanian MD [address] [place] [address] PCP - General Family Medicine 04/01/24 U.S. Revenue Officer Relationship Specialty Start Date End Date Pedro Subramanian MD [address] [place] [address] PCP - General Family Medicine 04/01/24 Julisa Mckinnon, chocolate production machine operatorLead Systems Developer Manager 08/21/24 U.S. Revenue Officer Relationship Specialty Start Date End Date Pedro Subramanian MD [address] [place] [address] PCP - General Family Medicine 04/01/24 Julisa Mckinnon, chocolate production machine operatorLead Systems Developer Manager 08/21/24 U.S. Revenue Officer Relationship Specialty Start Date End Date Pedro Subramanian MD [address] [place] [address] PCP - General Family Medicine 04/01/24 Julisa Mckinnon, chocolate production machine operatorLead Systems Developer Manager 08/21/24 U.S. Revenue Officer Relationship Specialty Start Date End Date Pedro Subramanian MD [address] [place] [address] PCP - General Family Medicine 04/01/24 Julisa Mckinnon, chocolate production machine operatorLead Systems Developer Manager 08/21/24 U.S. Revenue Officer Relationship Specialty Start Date End Date Pedro Subramanian MD [address] [place] [address] PCP - General Family Medicine 04/01/24 Julisa Mckinnon, RN Registered Nurse Lead Systems Developer Manager 08/21/24 U.S. Revenue Officer Relationship Specialty Start Date End Date Pedro Subramanian MD [address] [place] [address] PCP - General Family Medicine 04/01/24 Julisa Mckinnon, RN Registered Nurse Lead Systems Developer Manager 08/21/24 U.S. Revenue Officer Relationship Specialty Start Date End Date Pedro Subramanian MD [address] [place] [address] PCP - General Family Medicine 04/01/24 Julisa Mckinnon, RN Registered Nurse Lead Systems Developer Manager 08/21/24 U.S. Revenue Officer Relationship Specialty Start Date End Date Pedro Subramanian MD [address] [place] [address] PCP - General Family Medicine 04/01/24 Julisa Mckinnon, RN Registered Nurse Lead Systems Developer Manager 08/21/24 U.S. Revenue Officer Relationship Specialty Start Date End Date Pedro Subramanian MD [address] [place] [address] PCP - General Family Medicine 04/01/24 Julisa Mckinnon, RN Registered Nurse Lead Systems Developer Manager 08/21/24 U.S. Revenue Officer Relationship Specialty Start Date End Date Pedro Subramanian MD [address] [place] [address] PCP - General Family Medicine 04/01/24 Julisa Mckinnon, RN Registered Nurse Lead Systems Developer Manager 08/21/24 U.S. Revenue Officer Relationship Specialty Start Date End Date Pedro Subramanian MD [address] [place] [address] PCP - General Family Medicine 04/01/24 Julisa Mckinnon, RN Registered Nurse Lead Systems Developer Manager 08/21/24 U.S. Revenue Officer Relationship Specialty Start Date End Date Pedro Subramanian MD [address] [place] [address] PCP - General Family Medicine 04/01/24 Julisa Mckinnon, RN Registered Nurse Lead Systems Developer Manager 08/21/24 U.S. Revenue Officer Relationship Specialty Start Date End Date Pedro Subramanian MD [address] [place] [address] PCP - General Family Medicine 04/01/24 Julisa Mckinnon, RN Registered Nurse Lead Systems Developer Manager 08/21/24 U.S. Revenue Officer Relationship Specialty Start Date End Date Pedro Subramanian MD [address] [place] [address] PCP - General Family Medicine 04/01/24 Julisa Mckinnon, RN Registered Nurse Lead Systems Developer Manager 08/21/24 U.S. Revenue Officer Relationship Specialty Start Date End Date Pedro Subramanian MD [address] [place] [address] PCP - General Family Medicine 04/01/24 Julisa Mckinnon, RN Registered Nurse Lead Systems Developer Manager 08/21/24 U.S. Revenue Officer Relationship Specialty Start Date End Date Pedro Subramanian MD [address] [place] [address] PCP - General Family Medicine 04/01/24 Julisa Mckinnon RN Registered Nurse Lead Systems Developer Manager 08/21/24 U.S. Revenue Officer Relationship Specialty Start Date End Date Pedro Subramanian MD [address] [place] [address] PCP - General Family Medicine 04/01/24 Julisa Mckinnon, RN Registered Nurse Lead Systems Developer Manager 08/21/24 U.S. Revenue Officer Relationship Specialty Start Date End Date Pedro Subramanian MD [address] [place] [address] PCP - General Family Medicine 04/01/24 Julisa Mckinnon, RN Registered Nurse Lead Systems Developer Manager 08/21/24 U.S. Revenue Officer Relationship Specialty Start Date End Date Toi Davis MD [address] [place] [address] PCP - General 02/17/25 Julisa Mckinnon, RN Registered Nurse Lead Systems Developer Manager 08/21/24 U.S. Revenue Officer Relationship Specialty Start Date End Date Toi Davis MD [address] [place] [address] PCP - General 02/17/25 Julisa Mckinnon, RN Registered Nurse Lead Systems Developer Manager 08/21/24 U.S. Revenue Officer Relationship Specialty Start Date End Date Toi Davis MD [address] [place] [address] PCP - General 02/17/25 Julisa Mckinnon, RN Registered Nurse Lead Systems Developer Manager 08/21/24 U.S. Revenue Officer Relationship Specialty Start Date End Date Toi Davis MD [address] [place] [address] PCP - General 02/17/25 Julisa Mckinnon RN Registered Nurse Lead Systems Developer Manager 08/21/24 U.S. Revenue Officer Relationship Specialty Start Date End Date Toi Davis MD [address] [place] [address] PCP - General 02/17/25 Julisa Mckinnon, RN Registered Nurse Lead Systems Developer Manager 08/21/24 U.S. Revenue Officer Relationship Specialty Start Date End Date Pedro Subramanian MD [address] [place] [address] PCP - General Family Medicine 04/01/24 02/16/25 Toi Davis MD [address] [place] [address] PCP - General 02/17/25 Julisa Mckinnon RN Registered Nurse Lead Systems Developer Manager 08/21/24 U.S. Revenue Officer Relationship Specialty Start Date End Date Toi Davis MD [address] [place] [address] PCP - General 02/17/25 Julisa Mckinnon, NGHIA Registered Nurse Lead Systems Developer Manager 08/21/24 [employer] Relationship Specialty Start Date End Date Toi Davis MD [address] [place] [address] PCP - General 02/17/25 Julisa Mckinnon RN Registered Nurse Lead Systems Developer Manager 08/21/24 [employer] Relationship Specialty Start Date End Date Toi Davis MD [address] [place] [address] PCP - General 02/17/25 Julisa Mckinnon RN Registered Nurse Lead Systems Developer Manager 08/21/24 [employer] Relationship Specialty Start Date End Date Toi Davis MD [address] [place] [address] PCP - General 02/17/25 Julisa Mckinnon RN Registered Nurse Lead Systems Developer Manager 08/21/24 [employer] Relationship Specialty Start Date End Date Toi Davis MD [address] [place] [address] PCP - General 02/17/25 Julisa Mckinnon, NGHIA Registered Nurse Lead Systems Developer Manager 08/21/24 Scheduled Active and Recently Administ ered Medications (unrecognized section and content) Medication Order 12/24/2022 12/25/2022 12/26/2022 ibuprofen tablet 800 mg (COMPLETED) 800 mg, Oral, Once, On Sat12/26/22 at 1020, For 1 dose 1031 (Given - Provid er: Eleonora Brunner RN) Scheduled Medication Order 12/30/2022 12/31/2022 01/01/2023 Acetaminophen (Tylenol) 650 MG/20.3ML solution 1,000 mg(Linked Group 1) 1,000 mg, Per G Tube, Every 8 hours, First dose on 12/29/22 at 1900 0356 (See Alternative - Provider: Leena Blanco RN)1227 (See Alternative - Provider: Radha Roberts RN)1810 (See Alternative - Provider: Radha Roberts RN) 0251 (See Alternative - Provider: Leena Blanco RN)1158 (See Alternative - Provider: Brigitte Cornelius RN)1824 (See Alternative - Provider: Brigitte Cornelius RN) 0400 (See Alternative - Provider: Kiersten Melchor RN)1202 (See Alternative - Provider: Brigitte Cornelius RN) acetaminophen (Tylenol) tablet 1,000 mg(Linked Group 1) 1,000 mg, Oral, Every 8 hours, First dose on 12/29/22 at 1900, Maximum dose of acetaminophen is 4000 mg from all sources in 24 hours. 0356 (Given - Provider: Leena Blanco RN)1227 (Given - Provider: Radha Roberts RN)1810 (Given - Provider: Radha Roberts RN) 0251 (Given - Provider: Leena Blanco RN)1158 (Given - Provider: Brigitte Cornelius RN)1824 (Given - Provider: Brigitte Cornelius RN) 0400 (Given - Provider: Kiersten Melchor, NGHIA)1202 (Given - Provider: Brigitte Cornelius RN) albumin human 25 % IV solution 50 g (COMPLETED) 50 g, IntraVENous, at 200 mL/hr, Administer over 30 Minutes, Once, On 12/30/22 at 0530, For 1 dose 0532 (New Bag - Provider: Leena Blanco RN)0602 (Stopped - Provider: Leena lBanco RN) apixaban (Eliquis) tablet 5 mg 5 mg, Oral, 2 times daily, First dose on 12/30/22 at 0930, Anticoagulant 1227 (Given - Provider: Radha Roberts RN)2031 (Given - Provider: Leena Blanco RN) 0826 (Given - Provider: Brigitte Cornelius RN)2000 (Given - Provider: Brittney Johnston RN) 0907 (Given - Provider: Karla Brasher RN - Comment: Given by Leidy Li KASSIE) calcium gluconate 2000 mg in 100 mL IVPB premix (COMPLETED) 2,000 mg, IntraVENous, at 50 mL/hr, Administer over 2 Hours, Once, On 12/30/22 at 0330, For 1 dose, premix bag 0323 (New Bag - Provider: Leena Blanco RN)0523 (Stopped - Provider: Leena Blanco RN) folic acid (Folvite) tablet 1 mg 1 mg, Oral, Daily, First dose on 12/29/22 at 1900 0852 (Given - Provider: Radha Roberts RN) 0826 (Given - Provider: Brigitte Cornelius RN) 0907 (Given - Provider: Karla Brasher, NGHIA - Comment: Given by Leidy Li [facility]) ipratropium-albuterol (Duo-Neb) 0.5-2.5 mg/3 mL nebulizer solution 3 mL (CANCELED) 3 mL, Nebulization, Every 4 hours while awake, First dose on 12/29/22 at 1815 0847 (Given - Provider: Bebo Roe RCP)1224 (Given - Provider: Bebo Roe RCP)1623 (Given - Provider: Bebo Roe RCP)1999 (Canceled Entry - Provider: Kathryn Connolly RCP)2110 (Given - Provider: Kathryn Connolly RCP) 0800 (Given - Provider: Rachael Headley RCP) ipratropium-albuterol (Duo-Neb) 0.5-2.5 mg/3 mL nebulizer solution 3 mL 3 mL, Nebulization, 2 times daily, First dose (after last modification) on Sat12/31/22 at 2000 1607 (Given - Provider: Yanique Castellano RCP) 0826 (Given - Provider: Jayashree Downs RCP) metoprolol succinate XL (Toprol-XL) 24 hr tablet 100 mg 100 mg, Oral, 2 times daily, First dose on 12/29/22 at 2100, Do not crush or chew. 0900 (Not Given - Provider: Radha Roberts RN - Reason: Other - Comment: BP: 94/55)2030 (Given - Provider: Leena Blanco RN) 0826 (Given - Provider: Brigitte Cornelius RN)1999 (Given - Provider: Brittney Johnston RN) 0907 (Given - Provider: Karla Brasher RN - Comment: Given by Leidy KEANE) montelukast (Singulair) tablet 10 mg 10 mg, Oral, Every evening, First dose on 12/29/22 at 1900 1810 (Given - Provider: Radha Roberts RN) 1824 (Given - Provider: Brigitte Cornelius RN) 1800 (Canceled Entry - Provider: Automatic Discharge Provider - Comment: Automatically canceled at discontinue of medication order) nicotine (Nicoderm, Step 1) 21 MG/24HR patch 1 patch(Linked Group 2) 1 patch, TransDERmal, Administer over 24 Hours, Daily, First dose on 12/29/22 at 1900, For 42 days 0852 (Medication Applied - Provider: Radha Roberts RN)0859 (Medication Removed - Provider: Radha Roberts RN) 0825 (Medication Removed - Provider: Brigitte Cornelius RN)0829 (Medication Applied - Provider: Brigitte Cornelius RN) 0829 (Medication Removed - Provider: Karla Brasher RN)0913 (Medication Applied - Provider: Karla Brasher RN - Comment: Given by Leidy KEANE)1653 (Due: Medication Removed - Provider: Automatic Discharge Provider - Comment: Time automatically adjusted from order being discontinued) nicotine (Nicoderm, Step 2) 14 MG/24HR patch 1 patch(Linked Group 2) 1 patch, TransDERmal, Administer over 24 Hours, Daily, First dose on 02/09/23 at 0900, For 14 days nicotine (Nicoderm, Step 3) 7 MG/24HR patch 1 patch(Linked Group 2) 1 patch, TransDERmal, Administer over 24 Hours, Daily, First dose on 02/23/23 at 0900, For 14 days pantoprazole (ProtoNix) EC tablet 40 mg 40 mg, Oral, Every morning, First dose on 12/30/22 at 0900, Do not crush, chew, or split. 0852 (Given - Provider: Radha Roberts RN) 0825 (Given - Provider: Brigitte Cornelius RN) 0908 (Given - Provider: Karla Brasher RN - Comment: [facility] Potassium Bicarb-Citric Acid (Effer-K) 20 MEQ effervescent tablet 20 mEq 20 mEq, Oral, Daily, First dose on Sat12/30/22 at 1900, Completely dissolve tablets in 4 ounces (115mL) of water before administering. 2029 (Given - Provider: Leena Blanco RN) 115 (Given - Provider: Brigitte Cornelius RN) 09 (Given - Provider: Karla Brasher RN - Comment: Given by Leidy KEANE) potassium chloride IVPB 10 mEq () 10 mEq, IntraVENous, at 100 mL/hr, Administer over 1 Hours, Every 1 hour, First dose on Sat12/31/22 at 0600, For 4 doses, Total dose 40 mEq 0503 (New Bag - Provider: Leena Blanco RN)0603 (Stopped - Provider: Darion Olson RN)0704 (New Bag - Provider: Darion Olson RN)0759 (Stopped - Provider: Brigitte Cornelius RN)0825 (New Bag - Provider: Brigitte Cornelius RN)0900 (Due)1151 (Stopped - Provider: Brigitte Cornelius RN) rosuvastatin (Crestor) tablet 40 mg 40 mg, Oral, Nightly, First dose on 12/29/22 at 2100 2029 (Given - Provider: Leena Blanco RN) 1999 (Given - Provider: Brittney Johnston, NGHIA) sacubitril-valsartan (Entresto) 49-51 MG per tablet 1 tablet 1 tablet, Oral, 2 times daily, First dose on 12/29/22 at 2100, Contraindicated in combination with KINSEY inhibitors. Ensure a minimum of 36 hours between any KINSEY inhibitor dose and sacubitril-valsartan. 0852 (Given - Provider: Radha Roberts RN)2029 (Given - Provider: Leena Blanco RN) 08 (Given - Provider: Brigitte Cornelius, NGHIA)1999 (Given - Provider: Brittney Johnston, NGHIA) 0907 (Given - Provider: Karla Brasher, NGHIA - Comment: Given by Leidy KEANE) senna-docusate sodium (Senokot-S) 8.6-50 MG tablet 1 tablet 1 tablet, Oral, 2 times daily, First dose on Sat12/31/22 at 1330 1601 (Given - Provider: Brigitte Cornelius RN - Comment: nurse workflow)2000 (Given - Provider: Brittney Johnston, NGHIA) 09 (Given - Provider: Karla Brasher RN - Comment: Given by Leidy Li KASSIE) sertraline (Zoloft) tablet 100 mg 100 mg, Oral, Every morning, First dose on 12/30/22 at 0900 0855 (Given - Provider: Radha Roberts RN)1236 (Held by provider - Provider: Jamia Sierra MD - Reason: Other - Comment: Prolonged QTc) 0900 (Dose Auto Held - Provider: Jamia Sierra MD)1127 (Unheld by provider - Provider: Pravin Taylor MD)1158 (Given - Provider: Brigitte Cornelius RN) 09 (Given - Provider: Karla Brasher RN - Comment: Given by Leidy Guillermo KASSIE) sodium chloride 0.9 % bolus 1,000 mL (COMPLETED) 1,000 mL, IntraVENous, at 500 mL/hr, Administer over 2 Hours, Once, On 12/30/22 at 0445, For 1 dose 0453 (New Bag - Provider: Leena Blanco RN)0653 (Stopped - Provider: Leena Blanco RN) spironolactone (Aldactone) tablet 25 mg 25 mg, Oral, Nightly, First dose on 12/29/22 at 2100 2030 (Given - Provider: Leena Blanco RN) 1999 (Given - Provider: Brittney Johnston, NGHIA) therapeutic multivitamin-minerals (Theragran-M) tablet 1 tablet, Oral, Daily, First dose on 12/29/22 at 1900 0852 (Given - Provider: Radha Roberts, NGHIA) 0826 (Given - Provider: Brigitte Cornelius, NGHIA) 0907 (Given - Provider: Karla Brasher, NGHIA - Comment: Given by Leidy Guillermo KASSIE) Thiamine Mononitrate (Vitamin B1) tablet 100 mg 100 mg, Oral, Daily, First dose on 12/29/22 at 1900 0855 (Given - Provider: Radha Roberts, NGHIA) 0826 (Given - Provider: Brigitte Cornelius, NGHIA) 0907 (Given - Provider: Karla Brasher RN - Comment: [facility] Continuous Medication Order 12/30/2022 12/31/2022 01/01/2023 sodium chloride 0.9 % infusion () 125 mL/hr, IntraVENous, Continuous, Starting on 12/29/22 at 1815, For 23 hours 0323 (New Bag - Provider: Leena Blanco RN)0800 (Rate/Dose Verify - Provider: Radha Roberts RN)1203 (Rate/Dose Change - Provider: Radha Roberts RN)1222 (Not Given - Provider: Radha Roberts RN - Reason: Other - Comment: duplicate entry)1223 (Not Given - Provider: Radha Roberts RN - Reason: Other - Comment: duplicate entry)1639 (Stopped - Provider: Radha Roberts RN) sodium chloride 0.9 % infusion () 100 mL/hr, IntraVENous, Continuous, Starting on 12/30/22 at 2145, For 10 hours 2152 (New Bag - Provider: Leena Blanco RN) 0710 (New Bag - Provider: Darion Olson RN) PRN Medication Order 12/30/2022 12/31/2022 01/01/2023 albuterol 108 (90 Base) MCG/ACT inhaler 2 puff 2 puff, Inhalation, Every 6 hours PRN, wheezing, shortness of breath, Starting on 12/29/22 at 1808 0132 (Given - Provider: Leena Blanco RN) ipratropium-albuterol (Duo-Neb) 0.5-2.5 mg/3 mL nebulizer solution 3 mL 3 mL, Nebulization, Every 4 hours PRN, wheezing, Starting on 12/31/22 at 1218 1210 (Given - Provider: Rachael Headley RCP)1606 (Given - Provider: Yanique Castellano RCP)2058 (Not Given - Provider: Carmella Amaya RCP - Reason: Patient/family refused - Comment: pt refused tx and asked to go on pap because he is too tired) LORazepam (Ativan) injection 1 mg (CANCELED) 1 mg, IntraVENous, Every 1 hour PRN, withdrawal, For alcohol withdrawal, Starting on 12/29/22 at 1808, For CIWA score 8 to 10. If both oral and intravenous CIWA medications ordered, use intravenous if unable to tolerate oral equivalent. Reassess CIWA one hour after each dose of medication and as needed. For IV doses dilute dose with 1ml NS. 0337 (Given - Provider: Leena Blanco, RN) LORazepam (Ativan) tablet 1 mg 1 mg, Oral, Every 6 hours PRN, ciwa >8, Starting on Tu01/01/23 at 1039 morphine injection 1 mg (CANCELED) 1 mg, IntraVENous, Every 4 hours PRN, severe pain (7-10), Starting on 12/30/22 at 1228 2117 (Given - Provider: Leena Blanco RN) oxyCODONE (Roxicodone) immediate release tablet 5 mg 5 mg, Oral, Every 6 hours PRN, severe pain (7-10), Starting on 12/31/22 at 1323 polyethylene glycol (PEG) 3350 (Miralax) packet 17 g 17 g, Oral, Daily PRN, constipation, Starting on 12/29/22 at 1808, 1st line for treatment of constipation - give scheduled if no bowel movement in past 24 hours. promethazine (Phenergan) injection 12.5 mg(Linked Group 3) 12.5 mg, IntraMUSCular, Every 6 hours PRN, nausea, vomiting, Starting on 12/31/22 at 1326, Only to be given as IM injection. promethazine (Phenergan) suppository 12.5 mg(Linked Group 3) 12.5 mg, Rectal, Every 6 hours PRN, nausea, vomiting, Starting on 12/31/22 at 1326 promethazine (Phenergan) tablet 12.5 mg(Linked Group 3) 12.5 mg, Oral, Every 6 hours PRN, nausea, vomiting, Starting on 12/31/22 at 1326 sodium phosphates 10 mmol in dextrose 5 % 250 mL IVPB (CANCELED) 10 mmol, IntraVENous, at 62.5 mL/hr, Administer over 240 Minutes, PRN, Per Phosphate IV Replacement Protocol, Starting on 12/29/22 at 1808, Phos level Replacement Action 2.3 to 2.7 mg/dL 10 mmol IVPB over 4 hours 1.5 to 2.2 mg/dL 15 mmol IVPB over 4 hours LESS than 1.5 mg/dL 20 mmol IVPB over 6 hours 0348 (New Bag - Provider: Leena Blanco, RN)0748 (Stopped - Provider: Radha Roberts, NGHIA) Linked Groups Order Group 1: acetaminophen (Tylenol) tablet 1,000 mgJump to med 1,000 mg, Oral, Every 8 hours, First dose on 12/29/22 at 1900
Maximum dose of acetaminophen is 4000 mg from all sources in 24 hours.
Or Acetaminophen (Tylenol) 650 MG/20.3ML solution 1,000 mgJump to med 1,000 mg, Per G Tube, Every 8 hours, First dose on 12/29/22 at 1900 Group 2: nicotine (Nicoderm, Step 1) 21 MG/24HR patch 1 patchJump to med 1 patch, TransDERmal, Administer over 24 Hours, Daily, First dose on 12/29/22 at 1900, For 42 days Followed by nicotine (Nicoderm, Step 2) 14 MG/24HR patch 1 patchJump to med 1 patch, TransDERmal, Administer over 24 Hours, Daily, First dose on 02/09/23 at 0900, For 14 days Followed by nicotine (Nicoderm, Step 3) 7 MG/24HR patch 1 patchJump to med 1 patch, TransDERmal, Administer over 24 Hours, Daily, First dose on 02/23/23 at 0900, For 14 days Group 3: promethazine (Phenergan) tablet 12.5 mgJump to med 12.5 mg, Oral, Every 6 hours PRN, nausea, vomiting, Starting on Sat12/31/22 at 1326 Or promethazine (Phenergan) injection 12.5 mgJump to med 12.5 mg, IntraMUSCular, Every 6 hours PRN, nausea, vomiting, Starting on Sat12/31/22 at 1326
Only to be given as IM injection.
Or promethazine (Phenergan) suppository 12.5 mgJump to med 12.5 mg, Rectal, Every 6 hours PRN, nausea, vomiting, Starting on Sat12/31/22 at 1326 Scheduled Medication Order 11/12/2023 11/13/2023 11/14/2023 apixaban (Eliquis) tablet 5 mg 5 mg, Oral, 2 times daily, First dose on 3/12/24 at 0045, Anticoagulant 0120 (Given - Provider: Marlene Nguyễn RN)0955 (Given - Provider: Evelin Solo RN)2051 (Given - Provider: Javier Duran, RN) 0910 (Given - Provider: Riana Menendez RN)2124 (Given - Provider: Contreras Willams RN) 0937 (Given - Provider: Briana Church LPN) folic acid (Folvite) tablet 1 mg 1 mg, Oral, Daily, First dose on Sat11/12/23 at 0900 0955 (Given - Provider: Evelin Solo RN) 0910 (Given - Provider: Riana Menendez RN) 0937 (Given - Provider: Briana Church LPN) furosemide (Lasix) injection 40 mg (CANCELED) 40 mg, IntraVENous, 2 times daily, First dose on Sat11/12/23 at 0900 0955 (Given - Provider: Evelin Solo RN)1740 (Given - Provider: Evelin Solo RN) 0906 (Given - Provider: Riana Menendez RN) furosemide (Lasix) tablet 40 mg (COMPLETED) 40 mg, Oral, Once, On Sat11/13/23 at 1745, For 1 dose 1745 (Given - Provider: Lily Baez LPN) furosemide (Lasix) tablet 40 mg 40 mg, Oral, 2 times daily, First dose on Sat11/14/23 at 0600 0653 (Given - Provider: Contreras Willams RN)1500 (Canceled Entry - Provider: Automatic Discharge Provider - Comment: Automatically canceled at discontinue of medication order) ipratropium-albuterol (Duo-Neb) 0.5-2.5 mg/3 mL nebulizer solution 3 mL (CANCELED) 3 mL, Nebulization, Every 4 hours while awake, First dose on Sat11/12/23 at 0600 0600 (Not Given - Provider: Marlene Nguyễn RN - Reason: Contraindicated - Comment: Patient asleep)0735 (Given - Provider: Patricia Aranda RCP)1200 (Given - Provider: Evelin Solo RN)1544 (Given - Provider: Patricia Aranda RCP)2000 (Not Given - Provider: Javier Duran RN - Reason: Patient/family refused) 0600 (Not Given - Provider: Javier Durna RN - Reason: Patient/family refused)0944 (Not Given - Provider: Patricia Aranda SHANK RANDER - Reason: Patient/family refused)1239 (Given - Provider: Patricia Aranda [facility])1622 (Given - Provider: Patricia Aarnda [facility])2129 (Given - Provider: Alonso Rowe [facility]) 0600 (Due)0914 (Given - Provider: Jayashree Downs [facility])1243 (Given - Provider: Jayashree Downs [facility]) ipratropium-albuterol (Duo-Neb) 0.5-2.5 mg/3 mL nebulizer solution 3 mL 3 mL, Nebulization, 3 times daily, First dose (after last modification) on Sat11/14/23 at 2000 losartan (Cozaar) tablet 25 mg 25 mg, Oral, Daily, First dose (after last modification) on Sat11/12/23 at 1505 1510 (Given - Provider: Evelin Solo RN) 0911 (Given - Provider: Riana Menendez RN) 0937 (Given - Provider: Briana Church LPN) metoprolol succinate XL (Toprol-XL) 24 hr tablet 100 mg 100 mg, Oral, 2 times daily, First dose on Sat11/12/23 at 0045, Do not crush or chew. 0120 (Given - Provider: Marlene Nguyễn RN)0954 (Given - Provider: Evelin Solo RN)205 (Given - Provider: Javier Duran RN) 0910 (Given - Provider: Riana Menendez RN)2124 (Given - Provider: Contreras Willams RN) 0937 (Given - Provider: Briana Church LPN) montelukast (Singulair) tablet 10 mg 10 mg, Oral, Every evening, First dose on Sat11/12/23 at 0045 0120 (Given - Provider: Marlene Nguyễn RN)1740 (Given - Provider: Evelin oSlo RN) 1745 (Given - Provider: Lily Baez LPN) nicotine (Nicoderm, Step 1) 21 MG/24HR patch 1 patch(Linked Group 1) 1 patch, TransDERmal, Administer over 24 Hours, Daily, First dose on Sat11/12/23 at 0900, For 42 days, Apply new patch to nonhairy, clean, dry skin on the upper body or upper outer arm. Rotate patch sites. Notify Pharmacy if patient or provider prefers patch to be removed at bedtime and replaced in the morning. 0955 (Medication Applied - Provider: Evelin Solo RN) 0859 (Medication Removed - Provider: Riana Menendez RN)0904 (Medication Applied - Provider: Riana Menendez RN) 0859 (Medication Removed - Provider: Briana Church LPN)0900 (Medication Applied - Provider: Briana Church LPN)1427 (Due: Medication Removed - Provider: Automatic Discharge Provider - Comment: Time automatically adjusted from order being discontinued) nicotine (Nicoderm, Step 2) 14 MG/24HR patch 1 patch(Linked Group 1) 1 patch, TransDERmal, Administer over 24 Hours, Daily, First dose on Sat12/24/23 at 0900, For 14 days, Apply new patch to nonhairy, clean, dry skin on the upper body or upper outer arm. Rotate patch sites. Notify Pharmacy if patient or provider prefers patch to be removed at bedtime and replaced in the morning. nicotine (Nicoderm, Step 3) 7 MG/24HR patch 1 patch(Linked Group 1) 1 patch, TransDERmal, Administer over 24 Hours, Daily, First dose on Sat01/07/24 at 0900, For 14 days, Apply new patch to nonhairy, clean, dry skin on the upper body or upper outer arm. Rotate patch sites. Notify Pharmacy if patient or provider prefers patch to be removed at bedtime and replaced in the morning. predniSONE (Deltasone) tablet 50 mg 50 mg, Oral, Daily, First dose on Sat11/12/23 at 0900, For 4 doses 0955 (Given - Provider: Evelin Solo RN) 0909 (Given - Provider: Riana Menendez RN) 0937 (Given - Provider: Briana Church LPN) rosuvastatin (Crestor) tablet 40 mg 40 mg, Oral, Nightly, First dose on Sat11/12/23 at 0045 0120 (Given - Provider: Marlene Nguyễn RN)2051 (Given - Provider: Javier Duran RN) 2123 (Given - Provider: Contreras Willams, NGHIA) sertraline (Zoloft) tablet 100 mg 100 mg, Oral, Every morning, First dose on Sat11/12/23 at 0900 0955 (Given - Provider: Evelin Solo RN) 0911 (Given - Provider: Riana Menendez RN) 0937 (Given - Provider: Briana Church LPN) spironolactone (Aldactone) tablet 25 mg 25 mg, Oral, Nightly, First dose on Sat11/12/23 at 0045 0120 (Given - Provider: Marlene Nguyễn RN)2051 (Given - Provider: Javier Duran RN) 2123 (Given - Provider: Contreras Willams RN) therapeutic multivitamin-minerals (Theragran-M) tablet 1 tablet, Oral, Daily, First dose on Sat11/12/23 at 0900 0954 (Given - Provider: Evelin Solo RN) 0910 (Given - Provider: Riana Menendez RN) 0937 (Given - Provider: Briana Church LPN) thiamine (Vitamin B1) tablet 100 mg 100 mg, Oral, Daily, First dose on Sat11/12/23 at 0900 0955 (Given - Provider: Evelin Solo RN) 0911 (Given - Provider: Riana Menendez RN) 0937 (Given - Provider: Briana Church LPN) tiotropium (Spiriva Respimat) 2.5 MCG/ACT inhaler 2 puff 2 puff, Inhalation, Daily, First dose on Sat11/12/23 at 0900, Instruct to hold breath for 10 seconds after each inhalation. Before first use, prime inhaler by actuating until aerosal cloud is seen, then actuating 3 more times. 0959 (Given - Provider: Evelin Solo RN) 0914 (Given - Provider: Riana Menendez RN) 0946 (Given - Provider: Briana Church LPN) PRN Medication Order 11/12/2023 11/13/2023 11/14/2023 acetaminophen (Tylenol) suppository 650 mg(Linked Group 2) 650 mg, Rectal, Every 6 hours PRN, mild pain (1-3), fever, For temp greater than 100.4 F (38 C), Starting on Sat11/12/23 at 0040, Administer if oral route cannot be used. Maximum dose of acetaminophen is 4000 mg from all sources in 24 hours. acetaminophen (Tylenol) tablet 650 mg(Linked Group 2) 650 mg, Oral, Every 6 hours PRN, mild pain (1-3), fever, For temp greater than 100.4 F (38 C), Starting on Sat11/12/23 at 0040, Maximum dose of acetaminophen is 4000 mg from all sources in 24 hours. ipratropium-albuterol (Duo-Neb) 0.5-2.5 mg/3 mL nebulizer solution 3 mL 3 mL, Nebulization, Every 4 hours PRN, wheezing, Starting on Sat11/12/23 at 0040 2343 (Given - Provider: Alonso Rowe RCP) LORazepam (Ativan) injection 1 mg(Linked Group 3) 1 mg, IntraVENous, Every 1 hour PRN, withdrawal, For alcohol withdrawal, Starting on Sat11/12/23 at 0040, For CIWA score 8 to 10. If both oral and intravenous CIWA medications ordered, use intravenous if unable to tolerate oral equivalent. Reassess CIWA one hour after each dose of medication and as needed. For IV doses dilute dose with 1ml NS. LORazepam (Ativan) injection 2 mg(Linked Group 3) 2 mg, IntraVENous, Every 1 hour PRN, withdrawal, For alcohol withdrawal., Starting on Sat11/12/23 at 0040, For CIWA score 11 to 15. If both oral and intravenous CIWA medications ordered, use intravenous if unable to tolerate oral equivalent. Reassess CIWA one hour after each dose of medication and as needed. For IV doses dilute dose with 1ml NS. LORazepam (Ativan) injection 3 mg(Linked Group 3) 3 mg, IntraVENous, Every 1 hour PRN, withdrawal, For alcohol withdrawal, Starting on Sat11/12/23 at 0040, For CIWA score 16 to 20. If both oral and intravenous CIWA medications ordered, use intravenous if unable to tolerate oral equivalent. Reassess CIWA one hour after each dose of medication and as needed. For IV doses dilute dose with 1ml NS. LORazepam (Ativan) injection 4 mg(Linked Group 3) 4 mg, IntraVENous, Every 1 hour PRN, withdrawal, For alcohol withdrawal, Starting on Sat11/12/23 at 0040, For CIWA score greater than 20. If both oral and intravenous CIWA medications ordered, use intravenous if unable to tolerate oral equivalent. Reassess CIWA one hour after each dose of medication and as needed. For IV doses dilute dose with 1ml NS. LORazepam (Ativan) tablet 1 mg(Linked Group 3) 1 mg, Oral, Every 1 hour PRN, other, For alcohol withdrawal, Starting on Sat11/12/23 at 0040, For CIWA score 8 to 10. Reassess CIWA one hour after each dose of medication and as needed. LORazepam (Ativan) tablet 2 mg(Linked Group 3) 2 mg, Oral, Every 1 hour PRN, other, For alcohol withdrawal, Starting on Sat11/12/23 at 0040, For CIWA score 11 to 15. Reassess CIWA one hour after each dose of medication and as needed. LORazepam (Ativan) tablet 3 mg(Linked Group 3) 3 mg, Oral, Every 1 hour PRN, other, For alcohol withdrawal, Starting on Sat11/12/23 at 0040, For CIWA score 16 to 20. Reassess CIWA one hour after each dose of medication and as needed. LORazepam (Ativan) tablet 4 mg(Linked Group 3) 4 mg, Oral, Every 1 hour PRN, other, For alcohol withdrawal, Starting on Sat11/12/23 at 0040, For CIWA score greater than 20. Reassess CIWA one hour after each dose of medication and as needed. perflutren protein A microsphere (Optison) 3 mL in sodium chloride (PF) 0.9 % 10 mL IV syringe (COMPLETED) 0-10 mL, IntraVENous, IMG once PRN, other, Suboptimal echo image, Starting on Sat11/12/23 at 0040, For 1 dose, CV Procedural Medications, Administer via slow IVP for suboptimal echocardiogram enhancement. May administer as divided doses to reach optimal image enhancement 1400 (Given - Provider: Evelin Solo RN) polyethylene glycol (PEG) 3350 (Miralax) packet 17 g 17 g, Oral, Daily PRN, constipation, Starting on Sat11/12/23 at 0040, 1st line for treatment of constipation - give scheduled if no bowel movement in past 24 hours. promethazine (Phenergan) injection 25 mg(Linked Group 4) 25 mg, IntraMUSCular, Every 4 hours PRN, nausea, vomiting, Starting on Sat11/12/23 at 0118, Give IM if patient is unable to take orally or receive rectally. Not for IV administration. promethazine (Phenergan) suppository 25 mg(Linked Group 4) 25 mg, Rectal, Every 12 hours PRN, nausea, vomiting, Starting on Sat11/12/23 at 0118, Give VA if patient is unable to take orally. promethazine (Phenergan) tablet 25 mg(Linked Group 4) 25 mg, Oral, Every 6 hours PRN, nausea, vomiting, Starting on Sat11/12/23 at 0118 Linked Groups Order Group 1: nicotine (Nicoderm, Step 1) 21 MG/24HR patch 1 patchJump to med 1 patch, TransDERmal, Administer over 24 Hours, Daily, First dose on Sat11/12/23 at 0900, For 42 days, Apply new patch to nonhairy, clean, dry skin on the upper body or upper outer arm. Rotate patch sites. Notify Pharmacy if patient or provider prefers patch to be removed at bedtime and replaced in the morning. Followed by nicotine (Nicoderm, Step 2) 14 MG/24HR patch 1 patchJump to med 1 patch, TransDERmal, Administer over 24 Hours, Daily, First dose on Sat12/24/23 at 0900, For 14 days, Apply new patch to nonhairy, clean, dry skin on the upper body or upper outer arm. Rotate patch sites. Notify Pharmacy if patient or provider prefers patch to be removed at bedtime and replaced in the morning. Followed by nicotine (Nicoderm, Step 3) 7 MG/24HR patch 1 patchJump to med 1 patch, TransDERmal, Administer over 24 Hours, Daily, First dose on Sat01/07/24 at 0900, For 14 days, Apply new patch to nonhairy, clean, dry skin on the upper body or upper outer arm. Rotate patch sites. Notify Pharmacy if patient or provider prefers patch to be removed at bedtime and replaced in the morning. Group 2: acetaminophen (Tylenol) tablet 650 mgJump to med 650 mg, Oral, Every 6 hours PRN, mild pain (1-3), fever, For temp greater than 100.4 F (38 C), Starting on Sat11/12/23 at 0040, Maximum dose of acetaminophen is 4000 mg from all sources in 24 hours. Or acetaminophen (Tylenol) suppository 650 mgJump to med 650 mg, Rectal, Every 6 hours PRN, mild pain (1-3), fever, For temp greater than 100.4 F (38 C), Starting on Sat11/12/23 at 0040, Administer if oral route cannot be used. Maximum dose of acetaminophen is 4000 mg from all sources in 24 hours. Group 3: LORazepam (Ativan) tablet 1 mgJump to med 1 mg, Oral, Every 1 hour PRN, other, For alcohol withdrawal, Starting on Sat11/12/23 at 0040, For CIWA score 8 to 10. Reassess CIWA one hour after each dose of medication and as needed. Or LORazepam (Ativan) injection 1 mgJump to med 1 mg, IntraVENous, Every 1 hour PRN, withdrawal, For alcohol withdrawal, Starting on Sat11/12/23 at 0040, For CIWA score 8 to 10. If both oral and intravenous CIWA medications ordered, use intravenous if unable to tolerate oral equivalent. Reassess CIWA one hour after each dose of medication and as needed. For IV doses dilute dose with 1ml NS. Or LORazepam (Ativan) tablet 2 mgJump to med 2 mg, Oral, Every 1 hour PRN, other, For alcohol withdrawal, Starting on Sat11/12/23 at 0040, For CIWA score 11 to 15. Reassess CIWA one hour after each dose of medication and as needed. Or LORazepam (Ativan) injection 2 mgJump to med 2 mg, IntraVENous, Every 1 hour PRN, withdrawal, For alcohol withdrawal., Starting on Sat11/12/23 at 0040, For CIWA score 11 to 15. If both oral and intravenous CIWA medications ordered, use intravenous if unable to tolerate oral equivalent. Reassess CIWA one hour after each dose of medication and as needed. For IV doses dilute dose with 1ml NS. Or LORazepam (Ativan) tablet 3 mgJump to med 3 mg, Oral, Every 1 hour PRN, other, For alcohol withdrawal, Starting on Sat11/12/23 at 0040, For CIWA score 16 to 20. Reassess CIWA one hour after each dose of medication and as needed. Or LORazepam (Ativan) injection 3 mgJump to med 3 mg, IntraVENous, Every 1 hour PRN, withdrawal, For alcohol withdrawal, Starting on Sat11/12/23 at 0040, For CIWA score 16 to 20. If both oral and intravenous CIWA medications ordered, use intravenous if unable to tolerate oral equivalent. Reassess CIWA one hour after each dose of medication and as needed. For IV doses dilute dose with 1ml NS. Or LORazepam (Ativan) tablet 4 mgJump to med 4 mg, Oral, Every 1 hour PRN, other, For alcohol withdrawal, Starting on Sat11/12/23 at 0040, For CIWA score greater than 20. Reassess CIWA one hour after each dose of medication and as needed. Or LORazepam (Ativan) injection 4 mgJump to med 4 mg, IntraVENous, Every 1 hour PRN, withdrawal, For alcohol withdrawal, Starting on Sat11/12/23 at 0040, For CIWA score greater than 20. If both oral and intravenous CIWA medications ordered, use intravenous if unable to tolerate oral equivalent. Reassess CIWA one hour after each dose of medication and as needed. For IV doses dilute dose with 1ml NS. Group 4: promethazine (Phenergan) tablet 25 mgJump to med 25 mg, Oral, Every 6 hours PRN, nausea, vomiting, Starting on Sat11/12/23 at 0118 Or promethazine (Phenergan) suppository 25 mgJump to med 25 mg, Rectal, Every 12 hours PRN, nausea, vomiting, Starting on Sat11/12/23 at 0118, Give VA if patient is unable to take orally. Or promethazine (Phenergan) injection 25 mgJump to med 25 mg, IntraMUSCular, Every 4 hours PRN, nausea, vomiting, Starting on Sat11/12/23 at 0118, Give IM if patient is unable to take orally or receive rectally. Not for IV administration. Scheduled Medication Order 02/15/2024 02/16/2024 02/17/2024 apixaban (Eliquis) tablet 5 mg 5 mg, Oral, 2 times daily, First dose on Autumn 02/13/24 at 2140, Anticoagulant 0900 (Dose Auto Held - Provider: Lorena Rock MD)2100 (Dose Auto Held - Provider: Lorena Rock MD) 0900 (Dose Auto Held - Provider: Lorena Rock MD)0928 (Unheld by provider - Provider: Sophie Valadez MD)2129 (Given - Provider: Litzy Ellington RN) 09 (Given - Provider: Luciana Nolan RN) folic acid (Folvite) tablet 1,000 mcg 1,000 mcg, Oral, Every morning, First dose on Sat02/14/24 at 0900 0853 (Given - Provider: Gabriela Rothman RN) 0924 (Given - Provider: Gabriela Rothman RN) 09 (Given - Provider: Luciana Nolan RN) ipratropium-albuterol (Duo-Neb) 0.5-2.5 mg/3 mL nebulizer solution 3 mL 3 mL, Nebulization, 2 times daily, First dose (after last modification) on Sat02/15/24 at 0800 0826 (Given - Provider: Ashley Sarkar RCP)194 (Given - Provider: Ashley Alvares RCP) 0831 (Given - Provider: Tasia Das RCP)184 (Given - Provider: Tasia Das RCP) 0922 (Given - Provider: Patricia Aranda RCP) losartan (Cozaar) tablet 25 mg 25 mg, Oral, Daily, First dose on Sat02/14/24 at 0900 0853 (Given - Provider: Gabriela Rothman RN) 0924 (Given - Provider: Gabriela Rothman RN) 0913 (Given - Provider: Luciana Nolan RN) metoprolol succinate XL (Toprol-XL) 24 hr tablet 100 mg 100 mg, Oral, 2 times daily, First dose on Autumn 02/13/24 at 2140, Do not crush or chew. 0853 (Given - Provider: Gabriela Rothman RN)2027 (Given - Provider: Brittney Cervantes RN) 0924 (Given - Provider: Gabriela Rothman RN)2129 (Given - Provider: Litzy Ellington RN) 09 (Given - Provider: Luciana Nolan, NGHIA) mometasone-formoterol (Dulera 100) 100-5 MCG/ACT inhaler 2 puff 2 puff, Inhalation, 2 times daily, First dose on Sat02/13/24 at 2140, Rinse mouth with water after use to reduce aftertaste and incidence of candidiasis. Do not swallow. 0852 (Given - Provider: Gabriela Rothman RN)2033 (Given - Provider: Brittney Cervantes RN) 09 (Given - Provider: Gabriela Rothman RN)2131 (Given - Provider: Litzy Ellington RN) 09 (Given - Provider: Luciana Nolan RN) montelukast (Singulair) tablet 10 mg 10 mg, Oral, Every evening, First dose on Sat02/13/24 at 2140 1743 (Given - Provider: Gabriela Rothman RN) 1831 (Given - Provider: Gabriela Rothman RN) 1800 (Canceled Entry - Provider: Automatic Discharge Provider - Comment: Automatically canceled at discontinue of medication order) nicotine (Nicoderm, Step 2) 14 MG/24HR patch 1 patch 1 patch, TransDERmal, Administer over 24 Hours, Daily, First dose on Sat02/14/24 at 0900, Apply new patch to nonhairy, clean, dry skin on the upper body or upper outer arm. Rotate patch sites. Notify Pharmacy if patient or provider prefers patch to be removed at bedtime and replaced in the morning. 0837 (Not Given - Provider: Gabriela Rothman RN - Reason: Other - Comment: none in place)0854 (Not Given - Provider: Gabriela Rothman RN - Reason: Patient/family refused) 0900 (Not Given - Provider: Gabriela Rothman RN - Reason: Patient/family refused) 0900 (Not Given - Provider: Luciana Nolan RN - Reason: Patient/family refused) phytonadione (Vitamin K) tablet 10 mg (COMPLETED) 10 mg, Oral, Daily, First dose on Sat02/14/24 at 1030, For 3 doses 0911 (Given - Provider: Gabriela Rothman RN - Comment: discussed with MD) 1210 (Given - Provider: Gabriela Rothman RN - Comment: discussed with MD) rosuvastatin (Crestor) tablet 40 mg 40 mg, Oral, Nightly, First dose on Sat02/13/24 at 2140, On hold since Sat02/14/2024 at 2122 until manually unheld 2100 (Dose Auto Held - Provider: Charles Polk MD) 2100 (Dose Auto Held - Provider: Charles Polk MD) 1935 (Unheld by provider - Provider: Automatic Discharge Provider) sertraline (Zoloft) tablet 100 mg 100 mg, Oral, Every morning, First dose on Sat02/14/24 at 0900, On hold since Sat02/13/2024 at 213 until manually unheld 0900 (Dose Auto Held) 0900 (Dose Auto Held) 0900 (Dose Auto Held)193 (Unheld by provider - Provider: Automatic Discharge Provider) spironolactone (Aldactone) tablet 25 mg 25 mg, Oral, Nightly, First dose on Sat02/13/24 at 2140 2026 (Given - Provider: Brittney Cervantes RN) 2130 (Given - Provider: Litzy Ellington RN) therapeutic multivitamin-minerals (Theragran-M) tablet 1 tablet, Oral, Daily, First dose on Sat02/14/24 at 0900 0853 (Given - Provider: Gabriela Rothman RN) 0924 (Given - Provider: Gabriela Rothman RN) 0913 (Given - Provider: Luciana Nolan, NGHIA) thiamine (Vitamin B1) tablet 100 mg 100 mg, Oral, Daily, First dose on Sat02/14/24 at 0900 0853 (Given - Provider: Gabriela Rothman RN) 0924 (Given - Provider: Gabriela Rothman RN) 0913 (Given - Provider: Luciana Nolan RN) tiotropium (Spiriva Respimat) 2.5 MCG/ACT inhaler 2 puff 2 puff, Inhalation, Daily, First dose on Sat02/17/24 at 1200, Instruct to hold breath for 10 seconds after each inhalation. Before first use, prime inhaler by actuating until aerosal cloud is seen, then actuating 3 more times. 1200 (Not Given - Provider: Luciana Nolan, NGHIA - Reason: Medication not available) torsemide (Demadex) tablet 20 mg 20 mg, Oral, 2 times daily, First dose on Autumn 02/13/24 at 2140 0853 (Given - Provider: Gabriela Rothman, RN)2026 (Given - Provider: Brittney Cervantes, NGHIA) 0924 (Given - Provider: Gabriela Rothman RN)213 (Given - Provider: Litzy Ellington, NGHIA) 0913 (Given - Provider: Luciana Nolan RN) PRN Medication Order 02/15/2024 02/16/2024 02/17/2024 acetaminophen (Tylenol) suppository 650 mg(Linked Group 1) 650 mg, Rectal, Every 6 hours PRN, mild pain (1-3), fever, For temp greater than 100.4 F (38 C), Starting on Autumn 02/13/24 at 2136, Administer if oral route cannot be used. Maximum dose of acetaminophen is 4000 mg from all sources in 24 hours. 2340 (See Alternative - Provider: Brittney Cervantes RN) 0003 (See Alternative - Provider: Litzy Ellington, NGHIA) acetaminophen (Tylenol) tablet 650 mg(Linked Group 1) 650 mg, Oral, Every 6 hours PRN, mild pain (1-3), fever, For temp greater than 100.4 F (38 C), Starting on Autumn 02/13/24 at 2136, Maximum dose of acetaminophen is 4000 mg from all sources in 24 hours. 2340 (Given - Provider: Brittney Cervantes RN) 0003 (Given - Provider: Litzy Ellington, NGHIA) labetalol (Normodyne,Trandate) injection 10 mg 10 mg, IntraVENous, Every 10 min PRN, high blood pressure, Starting on Autumn 02/13/24 at 2136, Administer 10 mg IV every 10 minutes if SBP is 220 mmHg or greater OR DBP is 120 mmHg or greater. Notify provider if SBP is 220 mmHg or greater OR DBP is 120 mmHg or greater after 3 consecutive doses. LORazepam (Ativan) injection 1 mg(Linked Group 2) 1 mg, IntraVENous, Every 1 hour PRN, withdrawal, For alcohol withdrawal, Starting on Autumn 02/13/24 at 2138, For CIWA score 8 to 10. If both oral and intravenous CIWA medications ordered, use intravenous if unable to tolerate oral equivalent. Reassess CIWA one hour after each dose of medication and as needed. For IV doses dilute dose with 1ml NS. LORazepam (Ativan) injection 2 mg(Linked Group 2) 2 mg, IntraVENous, Every 1 hour PRN, withdrawal, For alcohol withdrawal., Starting on Autumn 02/13/24 at 2138, For CIWA score 11 to 15. If both oral and intravenous CIWA medications ordered, use intravenous if unable to tolerate oral equivalent. Reassess CIWA one hour after each dose of medication and as needed. For IV doses dilute dose with 1ml NS. LORazepam (Ativan) injection 3 mg(Linked Group 2) 3 mg, IntraVENous, Every 1 hour PRN, withdrawal, For alcohol withdrawal, Starting on Autumn 02/13/24 at 2138, For CIWA score 16 to 20. If both oral and intravenous CIWA medications ordered, use intravenous if unable to tolerate oral equivalent. Reassess CIWA one hour after each dose of medication and as needed. For IV doses dilute dose with 1ml NS. LORazepam (Ativan) injection 4 mg(Linked Group 2) 4 mg, IntraVENous, Every 1 hour PRN, withdrawal, For alcohol withdrawal, Starting on Autumn 02/13/24 at 2138, For CIWA score greater than 20. If both oral and intravenous CIWA medications ordered, use intravenous if unable to tolerate oral equivalent. Reassess CIWA one hour after each dose of medication and as needed. For IV doses dilute dose with 1ml NS. LORazepam (Ativan) tablet 1 mg(Linked Group 2) 1 mg, Oral, Every 1 hour PRN, other, For alcohol withdrawal, Starting on Autumn 02/13/24 at 2138, For CIWA score 8 to 10. Reassess CIWA one hour after each dose of medication and as needed. LORazepam (Ativan) tablet 2 mg(Linked Group 2) 2 mg, Oral, Every 1 hour PRN, other, For alcohol withdrawal, Starting on Autumn 02/13/24 at 2138, For CIWA score 11 to 15. Reassess CIWA one hour after each dose of medication and as needed. LORazepam (Ativan) tablet 3 mg(Linked Group 2) 3 mg, Oral, Every 1 hour PRN, other, For alcohol withdrawal, Starting on Autumn 02/13/24 at 2138, For CIWA score 16 to 20. Reassess CIWA one hour after each dose of medication and as needed. LORazepam (Ativan) tablet 4 mg(Linked Group 2) 4 mg, Oral, Every 1 hour PRN, other, For alcohol withdrawal, Starting on Autumn 02/13/24 at 2138, For CIWA score greater than 20. Reassess CIWA one hour after each dose of medication and as needed. polyethylene glycol (PEG) 3350 (Miralax) packet 17 g 17 g, Oral, Daily PRN, constipation, Starting on Autumn 02/13/24 at 2136, 1st line for treatment of constipation - give scheduled if no bowel movement in past 24 hours. sodium chloride 0.9% (NS) flush 5-40 mL 5-40 mL, IntraVENous, PRN, line care, After every IV line use, Starting on Autumn 02/13/24 at 1755, For Line Patency: Peripheral IV = 5 mL; Midline or Central Line = 10 mL/lumen. If following IV push medication, administer flush at same rate as the IV push. Flush volume is determined by type of infusion therapy being given. For non-viscous solutions use: Peripheral IV = 5 mL Midline or Central Line = 10 mL/lumen For viscous solutions (i.e. blood components, parenteral nutrition, contrast media, or after obtaining blood sample) use: Peripheral IV = 10 mL Midline or Central Line = 20 mL/lumen Linked Groups Order Group 1: acetaminophen (Tylenol) tablet 650 mgJump to med 650 mg, Oral, Every 6 hours PRN, mild pain (1-3), fever, For temp greater than 100.4 F (38 C), Starting on Autumn 02/13/24 at 2136, Maximum dose of acetaminophen is 4000 mg from all sources in 24 hours. Or acetaminophen (Tylenol) suppository 650 mgJump to med 650 mg, Rectal, Every 6 hours PRN, mild pain (1-3), fever, For temp greater than 100.4 F (38 C), Starting on Autumn 02/13/24 at 2136, Administer if oral route cannot be used. Maximum dose of acetaminophen is 4000 mg from all sources in 24 hours. Group 2: LORazepam (Ativan) tablet 1 mgJump to med 1 mg, Oral, Every 1 hour PRN, other, For alcohol withdrawal, Starting on Autumn 02/13/24 at 2138, For CIWA score 8 to 10. Reassess CIWA one hour after each dose of medication and as needed. Or LORazepam (Ativan) injection 1 mgJump to med 1 mg, IntraVENous, Every 1 hour PRN, withdrawal, For alcohol withdrawal, Starting on Autumn 02/13/24 at 2138, For CIWA score 8 to 10. If both oral and intravenous CIWA medications ordered, use intravenous if unable to tolerate oral equivalent. Reassess CIWA one hour after each dose of medication and as needed. For IV doses dilute dose with 1ml NS. Or LORazepam (Ativan) tablet 2 mgJump to med 2 mg, Oral, Every 1 hour PRN, other, For alcohol withdrawal, Starting on Autumn 02/13/24 at 2138, For CIWA score 11 to 15. Reassess CIWA one hour after each dose of medication and as needed. Or LORazepam (Ativan) injection 2 mgJump to med 2 mg, IntraVENous, Every 1 hour PRN, withdrawal, For alcohol withdrawal., Starting on Autumn 02/13/24 at 2138, For CIWA score 11 to 15. If both oral and intravenous CIWA medications ordered, use intravenous if unable to tolerate oral equivalent. Reassess CIWA one hour after each dose of medication and as needed. For IV doses dilute dose with 1ml NS. Or LORazepam (Ativan) tablet 3 mgJump to med 3 mg, Oral, Every 1 hour PRN, other, For alcohol withdrawal, Starting on Autumn 02/13/24 at 2138, For CIWA score 16 to 20. Reassess CIWA one hour after each dose of medication and as needed. Or LORazepam (Ativan) injection 3 mgJump to med 3 mg, IntraVENous, Every 1 hour PRN, withdrawal, For alcohol withdrawal, Starting on Autumn 02/13/24 at 2138, For CIWA score 16 to 20. If both oral and intravenous CIWA medications ordered, use intravenous if unable to tolerate oral equivalent. Reassess CIWA one hour after each dose of medication and as needed. For IV doses dilute dose with 1ml NS. Or LORazepam (Ativan) tablet 4 mgJump to med 4 mg, Oral, Every 1 hour PRN, other, For alcohol withdrawal, Starting on Sat02/13/24 at 2138, For CIWA score greater than 20. Reassess CIWA one hour after each dose of medication and as needed. Or LORazepam (Ativan) injection 4 mgJump to med 4 mg, IntraVENous, Every 1 hour PRN, withdrawal, For alcohol withdrawal, Starting on Autumn 02/13/24 at 2138, For CIWA score greater than 20. If both oral and intravenous CIWA medications ordered, use intravenous if unable to tolerate oral equivalent. Reassess CIWA one hour after each dose of medication and as needed. For IV doses dilute dose with 1ml NS. Scheduled Medication Order 09/12/2022 09/13/2022 09/14/2022 albuterol (2.5 MG/3ML) 0.083% nebulizer solution 2.5 mg (COMPLETED) 2.5 mg, Nebulization, Once, On Sat09/12/22 at 2130, For 1 dose, Initiate RT Bronchodilator Protocol? No 2144 (Given - Provider: Keyla Rausch RCP) apixaban (Eliquis) tablet 5 mg 5 mg, Oral, 2 times daily, First dose on Sat09/13/22 at 0900, Anticoagulant 0817 (Given - Provider: Lindsay Martin RN)2017 (Given - Provider: Muriel Nguyen RN) 0840 (Given - Provider: Nia Toussaint, RN) ergocalciferol (Vitamin D2) capsule 1.25 mg 1.25 mg, Oral, Weekly, First dose on Sat09/13/22 at 0900 0817 (Given - Provider: Lindsay Martin, NGHIA) folic acid (Folvite) tablet 1 mg 1 mg, Oral, Daily, First dose on Sat09/13/22 at 0900 0817 (Given - Provider: Lindsay Martin RN) 0840 (Given - Provider: Nia Toussaint, NGHIA) ipratropium-albuterol (Duo-Neb) 0.5-2.5 mg/3 mL nebulizer solution 3 mL (COMPLETED) 3 mL, Nebulization, Once, On Sat09/12/22 at 2130, For 1 dose 2144 (Given - Provider: Keyla Rausch RCP) ipratropium-albuterol (Duo-Neb) 0.5-2.5 mg/3 mL nebulizer solution 3 mL (CANCELED) 3 mL, Nebulization, 3 times daily, First dose on Sat09/12/22 at 2250 2308 (Given - Provider: Keyla Rausch RCP) ipratropium-albuterol (Duo-Neb) 0.5-2.5 mg/3 mL nebulizer solution 3 mL 3 mL, Nebulization, 4 times daily, First dose (after last modification) on Sat09/13/22 at 0800 0940 (Given - Provider: Patricia Aranda RCP)1221 (Given - Provider: Patricia Aranda RCP)1536 (Given - Provider: Patricia Aranda RCP)2056 (Given - Provider: Ashley Alvares RCP) 0812 (Not Given - Provider: Bebo Roe RCP - Reason: Patient not available - Comment: pt is with a physician)0842 (Given - Provider: Bebo Roe RCP)1148 (Not Given - Provider: Bebo Roe RCP - Reason: Patient/family refused) magnesium oxide (Mag-Ox) tablet 400 mg 400 mg, Oral, Daily, First dose on Sat09/13/22 at 0900 0817 (Given - Provider: Lindsay Martin RN) 0900 (Given - Provider: Nia Toussaint, NGHIA) methylPREDNISolone sodium succinate (PF) (SOLU-Medrol) injection 125 mg (COMPLETED) 125 mg, IntraVENous, Once, On Sat09/12/22 at 2130, For 1 dose 2201 (Given - Provider: Alonso Bernabe, EMT) metoprolol succinate XL (Toprol-XL) 24 hr tablet 100 mg 100 mg, Oral, 2 times daily, First dose on Sat09/13/22 at 0900, Do not crush or chew. 0817 (Given - Provider: Lindsay Martin, NGHIA)2017 (Given - Provider: Muriel Nguyen, NGHIA) 0840 (Given - Provider: Nia Toussaint, NGHIA) montelukast (Singulair) tablet 10 mg 10 mg, Oral, Nightly, First dose on Sat09/13/22 at 2099 2017 (Given - Provider: Muriel Nguyen, RN) multivitamin w/ lutein (Ocuvite-Lutein) tablet 1 tablet, Oral, Daily, First dose on Autumn 09/13/22 at 0900 0819 (Given - Provider: Lindsay Martin RN) 0900 (Given - Provider: Nia Toussaint, RN) nicotine (Nicoderm, Step 2) 14 MG/24HR patch 1 patch(Linked Group 1) 1 patch, TransDERmal, Administer over 24 Hours, Daily, First dose on Autumn 09/13/22 at 0900, For 42 days 0900 (Not Given - Provider: Lindsay Martin RN - Reason: Patient/family refused) 0839 (Medication Applied - Provider: Nia Toussaint, RN)1251 (Due: Medication Removed - Provider: Automatic Discharge Provider - Comment: Time automatically adjusted from order being discontinued) nicotine (Nicoderm, Step 3) 7 MG/24HR patch 1 patch(Linked Group 1) 1 patch, TransDERmal, Administer over 24 Hours, Daily, First dose on Sat10/25/22 at 0900, For 14 days predniSONE (Deltasone) tablet 40 mg 40 mg, Oral, Daily, First dose (after last modification) on Autumn 09/13/22 at 0900, For 5 days 0817 (Given - Provider: Lindsay Martin RN) 0840 (Given - Provider: Nia Toussaint RN) rosuvastatin (Crestor) tablet 40 mg 40 mg, Oral, Nightly, First dose on Sat09/13/22 at 2099 2017 (Given - Provider: Muriel Nguyen, NGHIA) sacubitril-valsartan (Entresto) 24-26 MG per tablet 1 tablet (CANCELED) 1 tablet, Oral, 2 times daily, First dose on Sat09/13/22 at 0900, Contraindicated in combination with KINSEY inhibitors. Ensure a minimum of 36 hours between any KINSEY inhibitor dose and sacubitril-valsartan. 08 (Given - Provider: Lindsay Martin RN) sacubitril-valsartan (Entresto) 49-51 MG per tablet 1 tablet 1 tablet, Oral, 2 times daily, First dose on Sat09/13/22 at 2099, Contraindicated in combination with KINSEY inhibitors. Ensure a minimum of 36 hours between any KINSEY inhibitor dose and sacubitril-valsartan. 2018 (Given - Provider: Muriel Nguyen, RN) 0840 (Given - Provider: Nia Toussaint, RN) sodium chloride 0.9 % bolus 1,000 mL (COMPLETED) 1,000 mL, IntraVENous, at 1,000 mL/hr, Administer over 1 Hours, Once, On Sat09/12/22 at 2310, For 1 dose 2312 (New Bag - Provider: Brittany Jesus RN) 0012 (Stopped - Provider: Brittany Jesus RN) spironolactone (Aldactone) tablet 25 mg 25 mg, Oral, Nightly, First dose on Sat09/13/22 at 2100 2017 (Given - Provider: Muriel Nguyen, NGHIA) thiamine (Vitamin B-1) tablet 100 mg 100 mg, Oral, Daily, First dose on Sat09/13/22 at 0900 0817 (Given - Provider: Lindsay Martin RN) 0840 (Given - Provider: Nia Toussaint, RN) torsemide (Demadex) tablet 20 mg 20 mg, Oral, 2 times daily, First dose on Sat09/13/22 at 0900 0817 (Given - Provider: Lindsay Martin, NGHIA)2017 (Given - Provider: Muriel Nguyen, NGHIA) 0840 (Given - Provider: Nia Toussaint, RN) PRN Medication Order 09/12/2022 09/13/2022 09/14/2022 acetaminophen (Tylenol) suppository 650 mg(Linked Group 2) 650 mg, Rectal, Every 6 hours PRN, mild pain (1-3), fever, For temp greater than 100.4 F (38 C), Starting on Sat09/13/22 at 0329, Administer if oral route cannot be used. Maximum dose of acetaminophen is 4000 mg from all sources in 24 hours. acetaminophen (Tylenol) tablet 650 mg(Linked Group 2) 650 mg, Oral, Every 6 hours PRN, mild pain (1-3), fever, For temp greater than 100.4 F (38 C), Starting on Autumn 09/13/22 at 0329, Maximum dose of acetaminophen is 4000 mg from all sources in 24 hours. polyethylene glycol (PEG) 3350 (Miralax) packet 17 g 17 g, Oral, Daily PRN, constipation, Starting on Autumn 09/13/22 at 0329, 1st line for treatment of constipation - give scheduled if no bowel movement in past 24 hours. Linked Groups Order Group 1: nicotine (Nicoderm, Step 2) 14 MG/24HR patch 1 patchJump to med 1 patch, TransDERmal, Administer over 24 Hours, Daily, First dose on Autumn 09/13/22 at 0900, For 42 days Followed by nicotine (Nicoderm, Step 3) 7 MG/24HR patch 1 patchJump to med 1 patch, TransDERmal, Administer over 24 Hours, Daily, First dose on Autumn 10/25/22 at 0900, For 14 days Group 2: acetaminophen (Tylenol) tablet 650 mgJump to med 650 mg, Oral, Every 6 hours PRN, mild pain (1-3), fever, For temp greater than 100.4 F (38 C), Starting on Autumn 09/13/22 at 0329
Maximum dose of acetaminophen is 4000 mg from all sources in 24 hours.
Or acetaminophen (Tylenol) suppository 650 mgJump to med 650 mg, Rectal, Every 6 hours PRN, mild pain (1-3), fever, For temp greater than 100.4 F (38 C), Starting on Autumn 09/13/22 at 0329
Administer if oral route cannot be used. Maximum dose of acetaminophen is 4000 mg from all sources in 24 hours.
Scheduled Medication Order 08/20/2024 08/21/2024 08/22/2024 amoxicillin-clavulanate XR (Augmentin XR) 1000-62.5 MG per 12 hr tablet 2 tablet 2 tablet, Oral, Every 12 hours scheduled (2 times per day), First dose on Sat08/21/24 at 0900, For 4 days, Do not crush, chew, or split., Suspected Indication (Select all that apply): Pneumonia (VAP) 1105 (Given - Provider: Paola Garcia RN)2100 (Not Given - Provider: David Reid RN - Reason: Medication not available) 0945 (Given - Provider: Shayy Romeo RN) apixaban (Eliquis) tablet 5 mg 5 mg, Oral, 2 times daily, First dose on 08/22/24 at 0900, Anticoagulant 0942 (Given - Provider: Shayy Romeo, NGHIA) cefTRIAXone (Rocephin) 2,000 mg in sodium chloride 0.9 % 50 mL IVPB Mini-Bag Plus (CANCELED) 2,000 mg, IntraVENous, at 100 mL/hr, Administer over 30 Minutes, Every 24 hours, First dose (after last modification) on Autumn 08/20/24 at 1900, For 5 days, Mini-Bag Plus bag, Suspected Indication (Select all that apply): Pneumonia (CAP) 180 (New Bag - Provider: Meka Salazar, RN)1834 (Stopped - Provider: Meka Salazar RN) enoxaparin (Lovenox) syringe 40 mg 40 mg, SubCUTAneous, Every 24 hours scheduled (Daily), First dose on Autumn 08/20/24 at 0900, Indication of Use: Prophylaxis-DVT/PE, Indications: Prophylaxis of Venous Thromboembolism, On hold since [facility] 08/22/2024 at 1133 until manually unheld 0820 (Given - Provider: Alek Marshall RN) 0815 (Given - Provider: Paola Garcia, NGHIA) 0941 (Given - Provider: Shayy Romeo RN)1133 (Held by provider - Provider: Sukumar South MD - Reason: Other - Comment: Resumed apixaban)1800 (Unheld by provider - Provider: Automatic Discharge Provider) folic acid (Folvite) tablet 1 mg 1 mg, Oral, Daily, First dose on Autumn 08/20/24 at 0900 0821 (Given - Provider: Alek Marshall RN) 0815 (Given - Provider: Paola Garcia, NGHIA) 0942 (Given - Provider: Shayy Romeo RN) furosemide (Lasix) injection 40 mg (CANCELED) 40 mg, IntraVENous, Daily, First dose (after last modification) on Autumn 08/20/24 at 0600 0615 (Given - Provider: Mrya Calvin RN) furosemide (Lasix) injection 40 mg (CANCELED) 40 mg, IntraVENous, 2 times daily, First dose (after last modification) on Autumn 08/20/24 at 2100 2047 (Given - Provider: Meka Salazar RN) 0815 (Given - Provider: Paola Garcia RN)2123 (Given - Provider: David Reid, RN) guaiFENesin (Mucinex) 12 hr tablet 600 mg 600 mg, Oral, 2 times daily, First dose on Sat08/19/24 at 2255, For 5 days, Administer with plenty of fluids to ensure proper action. Do not crush, chew, or split. 0821 (Given - Provider: Alek Marshall RN)2043 (Given - Provider: Meka Salazar RN) 814 (Given - Provider: Paola Garcia RN)2123 (Given - Provider: David Reid, RN) 0942 (Given - Provider: Shayy Romeo, NGHIA) influenza vaccine A&B surf ant adjuvanted (Fluad) HIGH-DOSE injection 0.5 mL 0.5 mL, IntraMUSCular, Prior to discharge, Starting on Sat08/20/24 at 0900, For 1 dose magnesium sulfate IVPB 4,000 mg (COMPLETED) 4,000 mg, IntraVENous, at 25 mL/hr, Administer over 4 Hours, Once, On Sat08/21/24 at 0540, For 1 dose, Recommended infusion rate not to exceed 1,000 mg (milligrams) per hour. 0604 (New Bag - Provider: Myra Calvin RN)1004 (Stopped - Provider: Paola Garcia RN) metoprolol succinate XL (Toprol-XL) 24 hr tablet 100 mg 100 mg, Oral, 2 times daily, First dose on Sat08/19/24 at 2205, HOLD if SBP <100 and HR <60 Do not crush or chew. 0820 (Given - Provider: Alek Marshall RN)2207 (Given - Provider: Myra Calvin RN) 08 (Given - Provider: Paola Garcia RN)2123 (Given - Provider: David Reid, NGHIA) 0942 (Given - Provider: Shayy Romeo RN) mometasone-formoterol (Dulera 100) 100-5 MCG/ACT inhaler 2 puff 2 puff, Inhalation, 2 times daily, First dose on Sat08/20/24 at 0800, @@@LOW COUNT CANISTER - DO NOT RETURN TO PHARMACY.@@@ Rinse mouth with water after use to reduce aftertaste and incidence of candidiasis. Do not swallow. 0818 (Given - Provider: Alek Marshall RN)204 (Given - Provider: Meka Salazar RN) 0817 (Given - Provider: Paola Garcia RN)1999 (Not Given - Provider: David Reid RN - Reason: Medication not available) 1056 (Given - Provider: Shayy Romeo RN) montelukast (Singulair) tablet 10 mg 10 mg, Oral, Nightly, First dose on Sat08/19/24 at 2205 2044 (Given - Provider: Meka Salazar, RN) 2123 (Given - Provider: David Reid, RN) nicotine (Nicoderm, Step 1) 21 MG/24HR patch 1 patch(Linked Group 1) 1 patch, TransDERmal, Administer over 24 Hours, Daily, First dose on Sat08/20/24 at 0900, For 42 days, Apply new patch to nonhairy, clean, dry skin on the upper body or upper outer arm. Rotate patch sites. Notify Pharmacy if patient or provider prefers patch to be removed at bedtime and replaced in the morning. 0821 (Medication Applied - Provider: Alek Marshall RN) 0815 (Medication Removed - Provider: Paola Garcia RN)0900 (Not Given - Provider: Paola Garcia RN - Reason: Patient/family refused) 0942 (Medication Applied - Provider: Shayy Romeo RN)1600 (Due: Medication Removed - Provider: Automatic Discharge Provider - Comment: Time automatically adjusted from order being discontinued) nicotine (Nicoderm, Step 2) 14 MG/24HR patch 1 patch(Linked Group 1) 1 patch, TransDERmal, Administer over 24 Hours, Daily, First dose on Sat10/01/24 at 0900, For 14 days, Apply new patch to nonhairy, clean, dry skin on the upper body or upper outer arm. Rotate patch sites. Notify Pharmacy if patient or provider prefers patch to be removed at bedtime and replaced in the morning. nicotine (Nicoderm, Step 3) 7 MG/24HR patch 1 patch(Linked Group 1) 1 patch, TransDERmal, Administer over 24 Hours, Daily, First dose on Sat10/15/24 at 0900, For 14 days, Apply new patch to nonhairy, clean, dry skin on the upper body or upper outer arm. Rotate patch sites. Notify Pharmacy if patient or provider prefers patch to be removed at bedtime and replaced in the morning. potassium chloride (Klor-Con) packet 40 mEq (COMPLETED) 40 mEq, Oral, Once, On Sat08/21/24 at 0540, For 1 dose, Dissolve each packet in 4 ounces of water = 5 mEq per 1 oz fluid., Indications: Hypokalemia 0604 (Given - Provider: Myra Calvin RN) potassium chloride (Klor-Con) packet 40 mEq (COMPLETED) 40 mEq, Oral, Once, On Sat08/22/24 at 0730, For 1 dose, Dissolve each packet in 4 ounces of water = 5 mEq per 1 oz fluid. 0941 (Given - Provider: Shayy Romeo RN) thiamine (Vitamin B1) tablet 100 mg 100 mg, Oral, Daily, First dose on Sat08/20/24 at 0900 0821 (Given - Provider: Alek Marshall RN) 0815 (Given - Provider: Paola Garcia RN) 0942 (Given - Provider: Shayy Romeo RN) tiotropium (Spiriva Respimat) 2.5 MCG/ACT inhaler 2 puff 2 puff, Inhalation, Daily, First dose on Sat08/20/24 at 0900 0819 (Given - Provider: Alek Marshall, NGHIA) 0817 (Given - Provider: Paola Garcia, NGHIA) 1055 (Given - Provider: Shayy Romeo RN) torsemide (Demadex) tablet 20 mg 20 mg, Oral, 2 times daily, First dose on Sat08/22/24 at 0845 0942 (Given - Provider: Shayy Romeo RN)1500 (Canceled Entry - Provider: Automatic Discharge Provider - Comment: Automatically canceled at discontinue of medication order) PRN Medication Order 08/20/2024 08/21/2024 08/22/2024 acetaminophen (Tylenol) suppository 650 mg(Linked Group 2) 650 mg, Rectal, Every 6 hours PRN, mild pain (1-3), fever, For temp greater than 100.4 F (38 C), Starting on Sat08/19/24 at 2204, Administer if oral route cannot be used. Maximum dose of acetaminophen is 4000 mg from all sources in 24 hours. acetaminophen (Tylenol) tablet 650 mg(Linked Group 2) 650 mg, Oral, Every 6 hours PRN, mild pain (1-3), fever, For temp greater than 100.4 F (38 C), Starting on Sat08/19/24 at 2204, Maximum dose of acetaminophen is 4000 mg from all sources in 24 hours. ipratropium-albuterol (Duo-Neb) 0.5-2.5 mg/3 mL nebulizer solution 3 mL 3 mL, Nebulization, Every 4 hours PRN, shortness of breath, wheezing, Starting on Sat08/19/24 at 2204 0942 (Given - Provid er: Bebo Roe RCP) polyethylene glycol (PEG) 3350 (Miralax) packet 17 g 17 g, Oral, Daily PRN, constipation, Starting on Sat08/19/24 at 2204, 1st line for treatment of constipation - give scheduled if no bowel movement in past 24 hours. prochlorperazine (Compazine) injection 10 mg(Linked Group 3) 10 mg, IntraVENous, Every 6 hours PRN, nausea, vomiting, Starting on Sat08/19/24 at 2211, Give IV if patient is unable to take orally. Give IM if patient is unable to take orally and does not have IV access. prochlorperazine (Compazine) suppository 25 mg(Linked Group 3) 25 mg, Rectal, Every 12 hours PRN, nausea, vomiting, Starting on Sat08/19/24 at 2211, Give VA if patient is unable to take orally or receive by injection. prochlorperazine (Compazine) tablet 10 mg(Linked Group 3) 10 mg, Oral, Every 6 hours PRN, nausea, vomiting, Starting on Sat08/19/24 at 2211 Linked Groups Order Group 1: nicotine (Nicoderm, Step 1) 21 MG/24HR patch 1 patchJump to med 1 patch, TransDERmal, Administer over 24 Hours, Daily, First dose on Autumn 08/20/24 at 0900, For 42 days, Apply new patch to nonhairy, clean, dry skin on the upper body or upper outer arm. Rotate patch sites. Notify Pharmacy if patient or provider prefers patch to be removed at bedtime and replaced in the morning. Followed by nicotine (Nicoderm, Step 2) 14 MG/24HR patch 1 patchJump to med 1 patch, TransDERmal, Administer over 24 Hours, Daily, First dose on Sat10/01/24 at 0900, For 14 days, Apply new patch to nonhairy, clean, dry skin on the upper body or upper outer arm. Rotate patch sites. Notify Pharmacy if patient or provider prefers patch to be removed at bedtime and replaced in the morning. Followed by nicotine (Nicoderm, Step 3) 7 MG/24HR patch 1 patchJump to med 1 patch, TransDERmal, Administer over 24 Hours, Daily, First dose on Sat10/15/24 at 0900, For 14 days, Apply new patch to nonhairy, clean, dry skin on the upper body or upper outer arm. Rotate patch sites. Notify Pharmacy if patient or provider prefers patch to be removed at bedtime and replaced in the morning. Group 2: acetaminophen (Tylenol) tablet 650 mgJump to med 650 mg, Oral, Every 6 hours PRN, mild pain (1-3), fever, For temp greater than 100.4 F (38 C), Starting on Sat08/19/24 at 2204, Maximum dose of acetaminophen is 4000 mg from all sources in 24 hours. Or acetaminophen (Tylenol) suppository 650 mgJump to med 650 mg, Rectal, Every 6 hours PRN, mild pain (1-3), fever, For temp greater than 100.4 F (38 C), Starting on Sat08/19/24 at 2204, Administer if oral route cannot be used. Maximum dose of acetaminophen is 4000 mg from all sources in 24 hours. Group 3: prochlorperazine (Compazine) tablet 10 mgJump to med 10 mg, Oral, Every 6 hours PRN, nausea, vomiting, Starting on Sat08/19/24 at 2211 Or prochlorperazine (Compazine) injection 10 mgJump to med 10 mg, IntraVENous, Every 6 hours PRN, nausea, vomiting, Starting on Sat08/19/24 at 2211, Give IV if patient is unable to take orally. Give IM if patient is unable to take orally and does not have IV access. Or prochlorperazine (Compazine) suppository 25 mgJump to med 25 mg, Rectal, Every 12 hours PRN, nausea, vomiting, Starting on Sat08/19/24 at 2211, Give VA if patient is unable to take orally or receive by injection. Scheduled Medication Order 09/14/2024 09/15/2024 09/16/2024 apixaban (Eliquis) tablet 5 mg 5 mg, Oral, 2 times daily, First dose on Sat09/10/24 at 2100, Anticoagulant 0915 (Given - Provider: Beryl Espana RN)211 (Given - Provider: Kayla Marquez RN) 09 (Given - Provider: Tiffany Colón RN)2116 (Given - Provider: Zahraa Abdalla, NGHIA) 08 (Given - Provider: Kathryn Ledesma, NGHIA) dapagliflozin (Farxiga) tablet 5 mg 5 mg, Oral, Daily, First dose on Sat09/10/24 at 1835 0915 (Given - Provider: Beryl Espana RN) 09 (Given - Provider: Tiffany Colón RN) 08 (Given - Provider: Kathryn Ledesma, NGHIA) folic acid (Folvite) tablet 1 mg 1 mg, Oral, Daily, First dose on Sat09/10/24 at 1835 0915 (Given - Provider: Beryl Espana RN) 09 (Given - Provider: Tiffany Colón RN) 08 (Given - Provider: Kathryn Ledesma, NGHIA) furosemide (Lasix) injection 20 mg (COMPLETED) 20 mg, IntraVENous, Once, On Sat09/15/24 at 2030, For 1 dose 2115 (Given - Provider: Zahraa Abdalla, NGHIA) furosemide (Lasix) injection 40 mg 40 mg, IntraVENous, 3 times daily, First dose (after last modification) on Sat09/11/24 at 1035 0915 (Given - Provider: Beryl Espana RN)1636 (Given - Provider: Beryl Espana RN - Comment: givdn)2123 (Not Given - Provider: Kayla Marquez RN - Reason: Contraindicated - Comment: per MTS, hold) 09 (Given - Provider: Tiffany Colón RN)133 (Given - Provider: Tiffany Colón RN)2020 (Held by provider - Provider: Mayda Shankar MD - Reason: Other)2100 (Dose Auto Held - Provider: Mayda Shankar MD) 0547 (Unheld by provider - Provider: Mayda Shankar MD)0824 (Given - Provider: Kathryn Ledesma RN)1400 (Canceled Entry - Provider: Automatic Discharge Provider - Comment: Automatically canceled at discontinue of medication order) ipratropium-albuterol (Duo-Neb) 0.5-2.5 mg/3 mL nebulizer solution 3 mL (CANCELED) 3 mL, Nebulization, Every 4 hours while awake, First dose (after last modification) on Sat09/10/24 at 1845 0928 (Given - Provider: Patricia Aranda RCP)1327 (Not Given - Provider: Patricia Aranda RCP - Reason: Patient not available)1732 (Not Given - Provider: Patricia Aranda RCP - Reason: Other - Comment: EATING)2113 (Given - Provider: Kayla Marquez RN)2200 (Not Given - Provider: Kayla Marquez RN - Reason: Patient/family refused) 0824 (Given - Provider: Job Acosta RRT)1213 (Given - Provider: Job Acosta RRT)1552 (Given - Provider: Job Acosta RRT)2048 (Given - Provider: Beth Hartley RCP) ipratropium-albuterol (Duo-Neb) 0.5-2.5 mg/3 mL nebulizer solution 3 mL 3 mL, Nebulization, Every 4 hours while awake, First dose (after last modification) on Sat09/16/24 at 0800 0826 (Given - Provider: Mario Alberto Ward)1152 (Given - Provider: Mario Alberto Ward)1600 (Canceled Entry - Provider: Automatic Discharge Provider - Comment: Automatically canceled at discontinue of medication order) losartan (Cozaar) tablet 12.5 mg 12.5 mg, Oral, Daily, First dose on Autumn 09/10/24 at 1835 0915 (Given - Provider: Beryl Espana RN) 0907 (Given - Provider: Tiffany Colón RN) 0826 (Given - Provider: Kathryn Ledesma RN) metoprolol succinate XL (Toprol-XL) 24 hr tablet 100 mg 100 mg, Oral, 2 times daily, First dose on Sat09/10/24 at 2100, Do not crush or chew. 0915 (Given - Provider: Beryl Espana RN)2127 (Given - Provider: Kayla Marquez RN) 906 (Given - Provider: Tiffany Colón RN)2116 (Given - Provider: Zahraa Abdalla, NGHIA) 08 (Given - Provider: Kathryn Ledesma, NGHIA) mometasone-formoterol (Dulera 200) 200-5 MCG/ACT inhaler 2 puff 2 puff, Inhalation, 2 times daily, First dose on Sat09/10/24 at 2000, Rinse mouth with water after use to reduce aftertaste and incidence of candidiasis. Do not swallow. 14 (Given - Provider: Beryl Espana RN)2112 (Given - Provider: Kayla Marquez RN) 909 (Given - Provider: Tiffany Colón RN)2115 (Given - Provider: Zahraa Abdalla, NGHIA) 08 (Given - Provider: Kathryn Ledesma, NGHIA) nicotine (Nicoderm, Step 1) 21 MG/24HR patch 1 patch 1 patch, TransDERmal, Administer over 24 Hours, Daily, First dose on Sat09/10/24 at 1835, Apply new patch to nonhairy, clean, dry skin on the upper body or upper outer arm. Rotate patch sites. Notify Pharmacy if patient or provider prefers patch to be removed at bedtime and replaced in the morning. 0826 (Medication Removed - Provider: Beryl Espana RN)0917 (Medication Applied - Provider: Beryl Espana RN) 0859 (Medication Removed - Provider: Tiffany Colón RN)09 (Medication Applied - Provider: Tiffany Colón RN) 0824 (Medication Applied - Provider: Kathryn Ledesma RN)0859 (Medication Removed - Provider: Kathryn Ledesma RN)1706 (Due: Medication Removed - Provider: Automatic Discharge Provider - Comment: Time automatically adjusted from order being discontinued) rosuvastatin (Crestor) tablet 40 mg 40 mg, Oral, Daily, First dose on Autumn 09/10/24 at 1835 0915 (Given - Provider: Beryl Espana, RN) 0907 (Given - Provider: Tiffany Colón, RN) 0826 (Given - Provider: Kathryn Ledesma, NGHIA) sertraline (Zoloft) tablet 100 mg 100 mg, Oral, Daily, First dose on Autumn 09/10/24 at 1835 0915 (Given - Provider: Beryl Espana RN) 0907 (Given - Provider: Tiffany Colón RN) 0826 (Given - Provider: Kathryn Ledesma, NGHIA) spironolactone (Aldactone) tablet 25 mg 25 mg, Oral, Daily, First dose on Autumn 09/10/24 at 1835 0915 (Given - Provider: Beryl Espana RN) 0907 (Given - Provider: Tiffany Colón RN) 08 (Given - Provider: Kathryn Ledesma, NGHIA) tiotropium (Spiriva Respimat) 2.5 MCG/ACT inhaler 2 puff 2 puff, Inhalation, Daily, First dose on Autumn 09/10/24 at 1835, Instruct to hold breath for 10 seconds after each inhalation. Before first use, prime inhaler by actuating until aerosal cloud is seen, then actuating 3 more times. 0914 (Given - Provider: Beryl Espana RN) 0908 (Given - Provider: Tiffany Colón RN) 0823 (Given - Provider: Kathryn Ledesma, NGHIA) torsemide (Demadex) tablet 20 mg 20 mg, Oral, Once, On Autumn 09/10/24 at 1835, For 1 dose, On hold since Autumn 09/10/2024 at 1832 until manually unheld 190 (Unheld by provider - Provider: Automatic Discharge Provider) PRN Medication Order 09/14/2024 09/15/2024 09/16/2024 acetaminophen (Tylenol) suppository 650 mg(Linked Group 1) 650 mg, Rectal, Every 6 hours PRN, mild pain (1-3), fever, For temp greater than 100.4 F (38 C), Starting on Autumn 09/10/24 at 1832, Administer if oral route cannot be used. Maximum dose of acetaminophen is 4000 mg from all sources in 24 hours. acetaminophen (Tylenol) tablet 650 mg(Linked Group 1) 650 mg, Oral, Every 6 hours PRN, mild pain (1-3), fever, For temp greater than 100.4 F (38 C), Starting on Autumn 09/10/24 at 1832, Maximum dose of acetaminophen is 4000 mg from all sources in 24 hours. ondansetron (Zofran) injection 4 mg(Linked Group 2) 4 mg, IntraVENous, Every 6 hours PRN, nausea, vomiting, Starting on Autumn 09/10/24 at 1832, 1st Line. Give IV if patient is unable to take orally. If inadequate response within 60 minutes, proceed to next-line agent or contact provider if no further options ordered. ondansetron ODT (Zofran-ODT) disintegrating tablet 4 mg(Linked Group 2) 4 mg, Oral, Every 8 hours PRN, nausea, vomiting, Starting on Autumn 09/10/24 at 1832, 1st Line. If inadequate response within 60 minutes, proceed to next-line agent or contact provider if no further options ordered. Patient should allow tablet to dissolve on tongue. Do not remove from blister pack until just before administering. polyethylene glycol (PEG) 3350 (Miralax) packet 17 g 17 g, Oral, Daily PRN, constipation, Starting on Autumn 09/10/24 at 1832, 1st line for treatment of constipation - give scheduled if no bowel movement in past 24 hours. Linked Groups Order Group 1: acetaminophen (Tylenol) tablet 650 mgJump to med 650 mg, Oral, Every 6 hours PRN, mild pain (1-3), fever, For temp greater than 100.4 F (38 C), Starting on Autumn 09/10/24 at 1832, Maximum dose of acetaminophen is 4000 mg from all sources in 24 hours. Or acetaminophen (Tylenol) suppository 650 mgJump to med 650 mg, Rectal, Every 6 hours PRN, mild pain (1-3), fever, For temp greater than 100.4 F (38 C), Starting on Autumn 09/10/24 at 1832, Administer if oral route cannot be used. Maximum dose of acetaminophen is 4000 mg from all sources in 24 hours. Group 2: ondansetron ODT (Zofran-ODT) disintegrating tablet 4 mgJump to med 4 mg, Oral, Every 8 hours PRN, nausea, vomiting, Starting on Autumn 09/10/24 at 1832, 1st Line. If inadequate response within 60 minutes, proceed to next-line agent or contact provider if no further options ordered. Patient should allow tablet to dissolve on tongue. Do not remove from blister pack until just before administering. Or ondansetron (Zofran) injection 4 mgJump to med 4 mg, IntraVENous, Every 6 hours PRN, nausea, vomiting, Starting on Autumn 09/10/24 at 1832, 1st Line. Give IV if patient is unable to take orally. If inadequate response within 60 minutes, proceed to next-line agent or contact provider if no further options ordered. Scheduled Medication Order 11/01/2024 11/02/2024 11/03/2024 apixaban (Eliquis) tablet 5 mg 5 mg, Oral, 2 times daily, First dose on 11/01/24 at 2100, Anticoagulant 2215 (Given - Provider: Iris Anna RN) 0943 (Given - Provider: Glory Hills RN)2012 (Given - Provider: Kan Mckenna RN) 0913 (Given - Provider: Gabby Bowden, RN) dapagliflozin (Farxiga) tablet 5 mg 5 mg, Oral, Daily, First dose on Sat11/02/24 at 0900 0943 (Given - Provider: Glory Hills RN) 0913 (Given - Provider: Gabby Bowden, RN) folic acid (Folvite) tablet 1 mg 1 mg, Oral, Daily, First dose on Sat11/02/24 at 0900 0943 (Given - Provider: Glory Hills RN) 0913 (Given - Provider: Gabby Bowden, RN) ipratropium-albuterol (Duo-Neb) 0.5-2.5 mg/3 mL nebulizer solution 3 mL (COMPLETED) 3 mL, Nebulization, Once, On 11/01/24 at 1455, For 1 dose 1505 (Given - Provider: Bebo Roe RCP) ipratropium-albuterol (Duo-Neb) 0.5-2.5 mg/3 mL nebulizer solution 3 mL (COMPLETED) 3 mL, Nebulization, Once, On 11/01/24 at 1505, For 1 dose 1513 (Given - Provider: Bebo Roe RCP) losartan (Cozaar) tablet 25 mg 25 mg, Oral, Daily, First dose on Sat11/02/24 at 0900, On hold since Sat11/02/2024 at 2018 until manually unheld 0944 (Given - Provider: Glory Hills RN)2018 (Held by provider - Provider: Liza Casper MD - Reason: Other - Comment: Vital signs changes) 09 (Dose Auto Held - Provider: Liza Casper MD)1939 (Unheld by provider - Provider: Automatic Discharge Provider) methylPREDNISolone sod suc (PF) (SOLU-Medrol) 40 MG injection 40 mg (COMPLETED) 40 mg, IntraVENous, Once, On Sat11/01/24 at 1505, For 1 dose 151 (Given - Provider: Javier Duran RN) metoprolol succinate XL (Toprol-XL) 24 hr tablet 100 mg 100 mg, Oral, 2 times daily, First dose on Sat11/01/24 at 2100, Do not crush or chew., On hold since Sat11/02/2024 at 2018 until manually unheld 2214 (Given - Provider: Iris Anna RN) 0943 (Given - Provider: Glory Hills RN)2018 (Held by provider - Provider: Liza Casper MD - Reason: Other - Comment: Vital signs changes)2099 (Not Given - Provider: Kan Mckenna RN - Reason: Order parameters not met) 09 (Dose Auto Held - Provider: Liza Casper MD)1939 (Unheld by provider - Provider: Automatic Discharge Provider) mometasone-formoterol (Dulera 100) 100-5 MCG/ACT inhaler 2 puff 2 puff, Inhalation, 2 times daily, First dose on Sat11/01/24 at 2100, Rinse mouth with water after use to reduce aftertaste and incidence of candidiasis. Do not swallow. 2099 (Not Given - Provider: Iris Anna RN - Reason: Patient/family refused) 0942 (Given - Provider: Glory Hills RN)222 (Given - Provider: Kan Mckenna RN) 0800 (Not Given - Provider: Gabby Bowden RN - Reason: Patient/family refused) montelukast (Singulair) tablet 10 mg 10 mg, Oral, Nightly, First dose on 11/01/24 at 2100 2215 (Given - Provider: Iris Anna RN) 2012 (Given - Provider: Kan Mckenna RN) nicotine (Nicoderm, Step 2) 14 MG/24HR patch 1 patch 1 patch, TransDERmal, Administer over 24 Hours, Daily, First dose on 11/01/24 at 2100, Apply new patch to nonhairy, clean, dry skin on the upper body or upper outer arm. Rotate patch sites. Notify Pharmacy if patient or provider prefers patch to be removed at bedtime and replaced in the morning. 2099 (Not Given - Provider: Iris Anna RN - Reason: Patient/family refused) 0942 (Not Given - Provider: Glory Hills RN - Reason: Patient/family refused) 09 (Not Given - Provider: Gabby Bowden RN - Reason: Patient/family refused) rosuvastatin (Crestor) tablet 40 mg 40 mg, Oral, Daily, First dose on Sat11/02/24 at 0900 0944 (Given - Provider: Glory Hills RN) 0915 (Given - Provider: Gabby Bowden RN) sertraline (Zoloft) tablet 100 mg 100 mg, Oral, Daily, First dose on 11/01/24 at 2100, On hold since 11/01/2024 at 2056 until manually unheld 2056 (Held by provider - Provider: Sukumar South MD - Reason: Other)2099 (Dose Auto Held) 899 (Dose Auto Held) 09 (Dose Auto Held)1939 (Unheld by provider - Provider: Automatic Discharge Provider) spironolactone (Aldactone) tablet 25 mg 25 mg, Oral, Daily, First dose on Sat11/02/24 at 0900 0943 (Given - Provider: Glory Hills RN) 0913 (Given - Provider: Gabby Bowden RN) tiotropium (Spiriva Respimat) 2.5 MCG/ACT inhaler 2 puff 2 puff, Inhalation, Daily, First dose on Sat11/02/24 at 0900 0942 (Given - Provider: Glory Hills RN) 0900 (Not Given - Provider: Gabby Bowden RN - Reason: Patient/family refused) torsemide (Demadex) tablet 20 mg 20 mg, Oral, Daily, First dose on 11/02/24 at 0900 0944 (Given - Provider: Glory Hills RN) 0913 (Given - Provider: Gabby Bowden RN) PRN Medication Order 11/01/2024 11/02/2024 11/03/2024 acetaminophen (Tylenol) suppository 650 mg(Linked Group 1) 650 mg, Rectal, Every 6 hours PRN, fever, For temp greater than 100.4 F (38 C), Starting on 11/01/24 at 2056, Administer if oral route cannot be used. Maximum dose of acetaminophen is 4000 mg from all sources in 24 hours. acetaminophen (Tylenol) tablet 650 mg(Linked Group 1) 650 mg, Oral, Every 6 hours PRN, mild pain (1-3), fever, For temp greater than 100.4 F (38 C), Starting on Sat11/01/24 at 2056, Maximum dose of acetaminophen is 4000 mg from all sources in 24 hours. ipratropium-albuterol (Duo-Neb) 0.5-2.5 mg/3 mL nebulizer solution 3 mL 3 mL, Nebulization, Every 4 hours PRN, shortness of breath, wheezing, Starting on Sat11/01/24 at 2226 polyethylene glycol (PEG) 3350 (Miralax) packet 17 g 17 g, Oral, Daily PRN, constipation, Starting on Sat11/01/24 at 2056, 1st line for treatment of constipation - give scheduled if no bowel movement in past 24 hours. Linked Groups Order Group 1: acetaminophen (Tylenol) tablet 650 mgJump to med 650 mg, Oral, Every 6 hours PRN, mild pain (1-3), fever, For temp greater than 100.4 F (38 C), Starting on 11/01/24 at 2056, Maximum dose of acetaminophen is 4000 mg from all sources in 24 hours. Or acetaminophen (Tylenol) suppository 650 mgJump to med 650 mg, Rectal, Every 6 hours PRN, fever, For temp greater than 100.4 F (38 C), Starting on Sat11/01/24 at 2057, Administer if oral route cannot be used. Maximum dose of acetaminophen is 4000 mg from all sources in 24 hours. Scheduled Medication Order 05/31/2025 06/01/2025 06/02/2025 apixaban (Eliquis) tablet 5 mg 5 mg, Oral, 2 times daily, First dose (after last modification) on Autumn 05/27/25 at 2100, Anticoagulant 1003 (Given - Provider: Mary Jo Rosado RN)1955 (Given - Provider: Tanya White RN) 1003 (Given - Provider: Razia Quiroga RN)1929 (Given - Provider: Tanya White RN) 0834 (Given - Provider: Nisreen Cuevas, NGHIA) chlorhexidine (Hibiclens) 4 % solution Topical, Daily, First dose on 05/22/25 at 1400 1655 (Not Given - Provider: Mary Jo Rosado RN - Reason: Other - Comment: no lines or polanco) 1930 (Not Given - Provider: Tanya White RN - Reason: Other - Comment: no line yet) chlorhexidine (Hibiclens) 4 % solution Topical, Daily, First dose on Autumn 06/03/25 at 1400 collagenase 250 UNIT/GM ointment Topical, Daily, First dose on Tu05/25/25 at 1230, Right forearm: Skin tear - Stable - Cleanse with NS. Apply santyl nickel thick to wound bed ,followed by adaptic. Cover with foam dressing. Change daily and PRN 1004 (Given - Provider: Mary Jo Rosado RN) 1003 (Given - Provider: Razia Quiroga RN) 0835 (Given - Provider: Nisreen Cuevas, NGHIA) dapagliflozin (Farxiga) tablet 5 mg 5 mg, Oral, Daily, First dose on Sat05/21/25 at 0900 1004 (Given - Provider: Mary Jo Rosado RN) 1006 (Given - Provider: Razia Quiroga RN) 0835 (Given - Provider: Nisreen Cuevas, NGHIA) folic acid (Folvite) tablet 1 mg 1 mg, Oral, Daily, First dose on Sat05/23/25 at 0915 1003 (Given - Provider: Mary Jo Rosado RN) 1003 (Given - Provider: Razia Quiroga RN) 0834 (Given - Provider: Nisreen Cuevas, NGHIA) losartan (Cozaar) tablet 25 mg 25 mg, Oral, Daily, First dose on Sat05/21/25 at 0900 1006 (Given - Provider: Mary Jo Rosado RN) 1002 (Given - Provider: Razia Quiroga RN) 0834 (Given - Provider: Nisreen Cuevas, RN) magnesium sulfate 3,000 mg in sodium chloride 0.9 % 100 mL IVPB (COMPLETED) 3,000 mg, IntraVENous, at 33.3 mL/hr, Administer over 3 Hours, Once, On Sat05/31/25 at 0615, For 1 dose, Recommended infusion rate not to exceed 1,000 mg (milligrams) per hour. 0638 (New Bag - Provider: Briana Argueta RN)1006 (Stopped - Provider: Mary Jo Rosado RN) metoprolol succinate XL (Toprol-XL) 24 hr tablet 75 mg 75 mg, Oral, 2 times daily, First dose (after last modification) on Sat05/28/25 at 2100, Do not crush or chew. 1007 (Given - Provider: Mary Jo Rosado RN)1954 (Given - Provider: Tanya White RN) 1002 (Given - Provider: Razia Quiroga, NGHIA)192 (Given - Provider: Tanya White RN) 0834 (Given - Provider: Nisreen Cuevas, NGHIA) mometasone-formoterol (Dulera 100) 100-5 MCG/ACT inhaler 2 puff 2 puff, Inhalation, 2 times daily, First dose on Sat05/22/25 at 2000, Administer using an inhaler spacer. @@@LOW COUNT CANISTER - DO NOT RETURN TO PHARMACY@@@ Rinse mouth with water after use to reduce aftertaste and incidence of candidiasis. Do not swallow. 1003 (Given - Provider: Mary Jo Rosado RN)1954 (Given - Provider: Tanya White RN) 1003 (Given - Provider: Razia Quiroga RN)192 (Given - Provider: Tanya White, NGHIA) 0834 (Given - Provider: Nisreen Cuevas, NGHIA)1999 (Canceled Entry - Provider: Automatic Discharge Provider - Comment: Automatically canceled at discontinue of medication order) montelukast (Singulair) tablet 10 mg (CANCELED) 10 mg, Oral, Nightly, First dose on Sat05/21/25 at 2100 1954 (Given - Provider: Tanya White RN) 1928 (Given - Provider: Tanya White RN) pantoprazole (ProtoNix) 40 mg in sodium chloride (PF) 0.9 % 10 mL injection(Linked Group 1) 40 mg, IntraVENous, Administer over 2 Minutes, Nightly, First dose on Sat05/28/25 at 2100, Give only if unable to tolerate po. 1954 (See Alternative - Provider: Tanya White RN) 1928 (See Alternative - Provider: Tanya White RN) pantoprazole (ProtoNix) EC tablet 40 mg(Linked Group 1) 40 mg, Oral, Nightly, First dose on Sat05/28/25 at 2100, Do not crush, chew, or split. 1954 (Given - Provider: Tanya White RN) 1928 (Given - Provider: Tanya White RN) potassium chloride CR (Klor-Con M10) ER tablet 40 mEq (COMPLETED) 40 mEq, Oral, Once, On Sat06/01/25 at 0545, For 1 dose, Best given with food and plenty of water to minimize gastric irritation. Do not crush or chew. 0548 (Given - Provider: Oj Valdez RN) potassium chloride CR (Klor-Con M10) ER tablet 40 mEq (COMPLETED) 40 mEq, Oral, Every 6 hours, First dose (after last reorder) on Sat06/01/25 at 1215, For 2 doses, Best given with food and plenty of water to minimize gastric irritation. Do not crush or chew. 1248 (Given - Provider: Razia Quiroga, NGHIA)1928 (Given - Provider: Tanya White RN) rosuvastatin (Crestor) tablet 40 mg 40 mg, Oral, Daily, First dose on Sat05/21/25 at 0900, On hold since Sat06/01/2025 at 1015 until manually unheld 1002 (Given - Provider: Mary Jo Rosado RN) 1002 (Given - Provider: Razia Quiroga RN)1015 (Held by provider - Provider: Alek Coles, DO - Reason: Other) 0900 (Dose Auto Held - Provider: Alek Coles DO)204 (Unheld by provider - Provider: Automatic Discharge Provider) sertraline (Zoloft) tablet 100 mg 100 mg, Oral, Daily, First dose (after last modification) on Sat05/24/25 at 0900 1003 (Given - Provider: Mary Jo Rosado RN) 1003 (Given - Provider: Razia Quiroga RN) 0834 (Given - Provider: Nisreen Cuevas RN) sodium chloride 0.9% (NS) flush 10 mL 10 mL, IntraCATHeter, Every 12 hours, First dose on Sat06/02/25 at 1630, Administer to each lumen. Line Care. Use 10 mL or larger syringe. 1728 (Not Given - Provider: Allan Mckeon RN - Reason: Contraindicated) sodium chloride 0.9% (NS) flush 5-40 mL 5-40 mL, IntraCATHeter, Every 8 hours, First dose on Sat05/21/25 at 0245, For Line Patency: Peripheral IV = 5 mL; Midline or Central Line = 10 mL/lumen. If following IV push medication, administer flush at same rate as the IV push. Flush volume is determined by type of infusion therapy being given. For non-viscous solutions use: Peripheral IV = 5 mL Midline or Central Line = 10 mL/lumen For viscous solutions (i.e. blood components, parenteral nutrition, contrast media, or after obtaining blood sample) use: Peripheral IV = 10 mL Midline or Central Line = 20 mL/lumen 0622 (Given - Provider: Briana Argueta RN)1004 (Given - Provider: Mary Jo Rosado RN)1956 (Given - Provider: Tanya White RN) 0043 (Not Given - Provider: Tanya White RN - Reason: Other)1002 (Given - Provider: Razia Quiroga RN)1635 (Given - Provider: Razia Quiroga RN) 0008 (Given - Provider: Tanya White RN)1331 (Not Given - Provider: Allan Mckeon, NGHIA - Reason: Contraindicated)1342 (Not Given - Provider: Allan Mckeon, NGHIA - Reason: Contraindicated) spironolactone (Aldactone) tablet 25 mg 25 mg, Oral, Daily, First dose on Sat05/21/25 at 0900 1003 (Given - Provider: Mary Jo Rosado RN) 1002 (Given - Provider: Razia Quiroga RN) 0834 (Given - Provider: Nisreen Cuevas, NGHIA) thiamine (Vitamin B1) tablet 100 mg 100 mg, Oral, Daily, First dose on Sat05/23/25 at 0915 1003 (Given - Provider: Mary Jo Rosado RN) 1002 (Given - Provider: Razia Quiroga RN) 0834 (Given - Provider: Nisreen Cuevas, NGHIA) tiotropium (Spiriva Respimat) 2.5 MCG/ACT inhaler 2 puff 2 puff, Inhalation, Daily, First dose on 05/22/25 at 1515, Instruct to hold breath for 10 seconds after each inhalation. Before first use, prime inhaler by actuating until aerosal cloud is seen, then actuating 3 more times. Administer using an inhaler spacer. 1002 (Given - Provider: Mary Jo Rosado RN) 1003 (Given - Provider: Razia Quiroga RN) 0834 (Given - Provider: Nisreen Cuevas, NGHIA) torsemide (Demadex) tablet 30 mg 30 mg, Oral, 2 times daily, First dose (after last modification) on Sat06/01/25 at 1615 1646 (Given - Provider: Razia Quiroga RN) 0522 (Given - Provider: Tanya White, NGHIA)1633 (Given - Provider: Allan Mckeon RN) torsemide (Demadex) tablet 40 mg (CANCELED) 40 mg, Oral, 2 times daily, First dose (after last modification) on Sat05/28/25 at 1045 0513 (Given - Provider: Briana Argueta RN)1655 (Given - Provider: Mary Jo Rosado RN) 0518 (Given - Provider: Tanya White, NGHIA)1623 (Not Given - Provider: Razia Quiroga RN - Reason: Other - Comment: order modified) vancomycin IVPB 1500 mg in 250 mL NS (premix) 1,500 mg, IntraVENous, at 125 mL/hr, Administer over 120 Minutes, Every 24 hours, First dose (after last modification) on Sat05/31/25 at 0000, premix bag, Suspected Indication (Select all that apply): Pneumonia (CAP) 0011 (New Bag - Provider: Briana Argueta NGHIA)0514 (Stopped - Provider: Briana Argueta RN) 0015 (New Bag - Provider: Elvi Walls RN)0214 (Stopped - Provider: Tanya White RN) 0008 (New Bag - Provider: Tanya White, NGHIA)0425 (Stopped - Provider: Tanya White RN) PRN Medication Order 05/31/2025 06/01/2025 06/02/2025 acetaminophen (Tylenol) tablet 650 mg (CANCELED) 650 mg, Oral, Every 4 hours PRN, mild pain (1-3), Fever > 100.5 F (38 C), Starting on Sat05/25/25 at 1631, Recovery & On Unit, Maximum dose of acetaminophen is 4000 mg from all sources in 24 hours. 0010 (Given - Provid er: Tanya White RN)0620 (Given - Provider: Tanya White RN) collagenase 250 UNIT/GM ointment Topical, Daily PRN, RFA, Starting on Sat05/25/25 at 1215, Right forearm: Skin tear - Cleanse with NS. Apply santyl nickel thick to wound bed ,followed by mesalt. Cover with foam dressing. Change daily and PRN ipratropium-albuterol (Duo-Neb) 0.5-2.5 mg/3 mL nebulizer solution 3 mL 3 mL, Nebulization, 2 times daily PRN, wheezing, Starting on Sat05/22/25 at 1215 sodium chloride 0.9% (NS) flush 10 mL 10 mL, IntraCATHeter, PRN, line care, before blood draws, before and after infusion or medication administration, Starting on Sat06/02/25 at 1624, Use 10 mL or larger syringe. sodium chloride 0.9% (NS) flush 5-40 mL 5-40 mL, IntraVENous, PRN, line care, before and after blood draws, infusion, or medication administration, Starting on Sat05/21/25 at 0242, For Line Patency: Peripheral IV = 5 mL; Midline or Central Line = 10 mL/lumen. If following IV push medication, administer flush at same rate as the IV push. Flush volume is determined by type of infusion therapy being given. For non-viscous solutions use: Peripheral IV = 5 mL Midline or Central Line = 10 mL/lumen For viscous solutions (i.e. blood components, parenteral nutrition, contrast media, or after obtaining blood sample) use: Peripheral IV = 10 mL Midline or Central Line = 20 mL/lumen Linked Groups Order Group 1: pantoprazole (ProtoNix) EC tablet 40 mgJump to med 40 mg, Oral, Nightly, First dose on Sat05/28/25 at 2100, Do not crush, chew, or split. Or pantoprazole (ProtoNix) 40 mg in sodium chloride (PF) 0.9 % 10 mL injectionJump to med 40 mg, IntraVENous, Administer over 2 Minutes, Nightly, First dose on Sat05/28/25 at 2100, Give only if unable to tolerate po. Scheduled Medication Order 06/08/2025 06/09/2025 06/10/2025 apixaban (Eliquis) tablet 5 mg 5 mg, Oral, 2 times daily, First dose on Sat06/04/25 at 0900, Anticoagulant 0850 (Given - Provider: Tova Strickland RN)2056 (Given - Provider: Carolynn Love RN) 1003 (Given - Provider: Teodora Loaiza, NGHIA)203 (Given - Provider: Carolynn Love, NGHIA) 0905 (Given - Provider: Beryl Espnaa RN)2100 (Canceled Entry - Provider: Automatic Discharge Provider - Comment: Automatically canceled at discontinue of medication order) cetirizine (ZyrTEC) tablet 10 mg (CANCELED) 10 mg, Oral, Daily, First dose on Sat06/07/25 at 0945 0850 (Given - Provider: Tova Strickland RN) 1003 (Given - Provider: Teodora Loaiza RN) 0905 (Given - Provider: Beryl Espana, NGHIA) chlorhexidine (Hibiclens) 4 % solution Topical, Daily, First dose (after last modification) on Sat06/04/25 at 1400 1251 (Given - Provider: Tova tSrickland RN)1400 (Canceled Entry - Provider: Tova Strickland RN) 2031 (Given - Provider: Carolynn Love RN) 1607 (Given - Provider: Beryl Espana RN) collagenase 250 UNIT/GM ointment Topical, Daily, First dose (after last modification) on Sat06/04/25 at 0900, Right forearm: Skin tear - Stable - Cleanse with NS. Apply santyl nickel thick to wound bed ,followed by adaptic. Cover with foam dressing. Change daily and PRN 0854 (Given - Provider: Tova Strickland RN) 1256 (Not Given - Provider: Teodora Laoiza, RN - Reason: Patient/family refused) 0911 (Given - Provider: Beryl Espana, RN) dapagliflozin (Farxiga) tablet 10 mg 10 mg, Oral, Daily, First dose on Sat06/04/25 at 0900, Indications: Heart Failure 0850 (Given - Provider: Tova Strickland RN) 1003 (Given - Provider: Teodoar Loaiza RN) 0905 (Given - Provider: Beryl Espana, NGHIA) dextromethorphan-guaiFE Nesin (Mucinex DM) 30-600 MG per 12 hr tablet 1 tablet 1 tablet, Oral, 2 times daily, First dose on Sat06/04/25 at 0240, Do not crush, chew, or split. 0850 (Given - Provider: Tova Strickland RN)2056 (Given - Provider: Carolynn Love RN) 1003 (Given - Provider: Teodora Loaiza, NGHIA)2031 (Given - Provider: Carolynn Love RN) 0915 (Given - Provider: Beryl Espana RN)2100 (Canceled Entry - Provider: Automatic Discharge Provider - Comment: Automatically canceled at discontinue of medication order) diphenhydrAMINE (BENADryl) injection 25 mg 25 mg, IntraVENous, Daily, First dose on Sat06/07/25 at 1045, -to be administered prior to starting vancomycin infusion 0331 (Given - Provider: Kay Delgado RN) 0430 (Given - Provider: Carolynn Love RN) 0426 (Given - Provider: Carolynn Love RN) folic acid (Folvite) tablet 1 mg 1 mg, Oral, Daily, First dose on Sat06/04/25 at 0900 0850 (Given - Provider: Tova Strickland RN) 1003 (Given - Provider: Teodora Loaiza, NGHIA) 0905 (Given - Provider: Beryl Espana, NGHIA) Insulin Lispro (Humalog) injection 0-12 Units (CANCELED)(Linked Group 1) 0-12 Units, SubCUTAneous, Nightly, First dose on Sat06/06/25 at 2100, If eating or bolus tube feeding: Medium Dose Correction Algorithm Glucose: Dose: LESS than 150 No Insulin 150-199 2 Units 200-249 4 Units 250-299 6 Units 300-349 8 Units 350-400 10 Units Above 400 12 Units 2055 (Given - Provider: Carolynn Love, NGHIA) Insulin Lispro (Humalog) injection 0-12 Units(Linked Group 2) 0-12 Units, SubCUTAneous, 3 times daily with meals, First dose on Sat06/09/25 at 0800, Medium Dose Correction Algorithm Glucose: Dose: LESS than 150 No Insulin 150-199 2 Units 200-249 4 Units 250-299 6 Units 300-349 8 Units 350-400 10 Units Above 400 12 Units 1002 (Not Given - Provider: Teodora Loaiza RN - Reason: Order parameters not met)1159 (Not Given - Provider: Teodora Loaiza RN - Reason: Order parameters not met)1749 (Given - Provider: Teodora Loaiza RN) 0909 (Not Given - Provider: Beryl Espana RN - Reason: Order parameters not met)1607 (Given - Provider: Beryl Espana RN - Comment: patient off floor)1708 (Given - Provider: Beryl Espana, NGHIA) Insulin Lispro (Humalog) injection 0-12 Units(Linked Group 2) 0-12 Units, SubCUTAneous, Nightly, First dose on Sat06/08/25 at 2115, If eating or bolus tube feeding: Medium Dose Correction Algorithm Glucose: Dose: LESS than 150 No Insulin 150-199 2 Units 200-249 4 Units 250-299 6 Units 300-349 8 Units 350-400 10 Units Above 400 12 Units 2135 (Not Given - Provider: Carolynn Love RN - Reason: Other - Comment: already given) 2031 (Given - Provider: Carolynn Love, NGHIA) 2099 (Canceled Entry - Provider: Automatic Discharge Provider - Comment: Automatically canceled at discontinue of medication order) ipratropium-albuterol (Duo-Neb) 0.5-2.5 mg/3 mL nebulizer solution 3 mL (CANCELED) 3 mL, Nebulization, Every 4 hours, First dose on Sat06/04/25 at 0915 0511 (Given - Provider: Jayashree Downs RCP)0806 (Not Given - Provider: Kacey Newsome - Reason: Patient not available - Comment: Pt with OT)1142 (Given - Provider: Kacey Newsome)1507 (Given - Provider: PENNY NicholsonP)2051 (Given - Provider: Fabby Florentino SHANK RANDER) 0000 (Given - Provider: Fabby Florentino RCP)0418 (Given - Provider: Fabby Florentino SHANK RANDER)0826 (Given - Provider: Rachael Headley SHANK RANDER)1235 (Given - Provider: Rachael Headley RCP)1547 (Given - Provider: Ashley Sarkar SHANK RANDER)2002 (Given - Provider: Harlan Harrington RRT)2315 (Given - Provider: Harlan Harrington RRT) ipratropium-albuterol (Duo-Neb) 0.5-2.5 mg/3 mL nebulizer solution 3 mL (CANCELED) 3 mL, Nebulization, Every 4 hours while awake, First dose (after last modification) on Sat06/10/25 at 0800 0935 (Given - Provider: Jose M Sarmiento RCP) ipratropium-albuterol (Duo-Neb) 0.5-2.5 mg/3 mL nebulizer solution 3 mL 3 mL, Nebulization, 2 times daily, First dose (after last modification) on Sat06/10/25 at 2000 1932 (Given - Provider: Dallas Jaramillo, REED) losartan (Cozaar) tablet 25 mg 25 mg, Oral, Daily, First dose on Sat06/04/25 at 0900 0850 (Given - Provider: Tova Strickland, NGHIA) 1003 (Given - Provider: Teodora Loaiza RN) 0905 (Given - Provider: Beryl Espana RN) metoprolol succinate XL (Toprol-XL) 24 hr tablet 75 mg 75 mg, Oral, 2 times daily, First dose on Sat06/04/25 at 0900, Do not crush or chew. 0850 (Given - Provider: Tova Strickland RN)2055 (Given - Provider: Carolynn Love, NGHIA) 1003 (Given - Provider: Teodora Loaiza, RN)2030 (Given - Provider: Carolynn Love RN) 09 (Given - Provider: Beryl Espana, RN)2099 (Canceled Entry - Provider: Automatic Discharge Provider - Comment: Automatically canceled at discontinue of medication order) mirtazapine (Remeron Kelsea-Tab) disintegrating tablet 15 mg 15 mg, Oral, Nightly, First dose on Sat06/09/25 at 2100, Remove from blister pack and dissolve tablet on tongue. Do not chew, crush, or split. 2030 (Given - Provider: Carolynn Love RN) 2099 (Canceled Entry - Provider: Automatic Discharge Provider - Comment: Automatically canceled at discontinue of medication order) mometasone-formoterol (Dulera 200) 200-5 MCG/ACT inhaler 2 puff 2 puff, Inhalation, 2 times daily, First dose on Sat06/04/25 at 0800, Administer using an inhaler spacer. Rinse mouth with water after use to reduce aftertaste and incidence of candidiasis. Do not swallow. 0850 (Given - Provider: Tova Strickland RN)2056 (Given - Provider: Carolynn Love RN) 1257 (Given - Provider: Teodora Loaiza RN)2031 (Given - Provider: Carolynn Love RN) 0910 (Given - Provider: Beryl Espana, RN)1999 (Canceled Entry - Provider: Automatic Discharge Provider - Comment: Automatically canceled at discontinue of medication order) montelukast (Singulair) tablet 10 mg 10 mg, Oral, Daily, First dose on Sat06/04/25 at 0900 0850 (Given - Provider: Tova Strickland RN) 1003 (Given - Provider: Teodora Loaiza, NGHIA) 0905 (Given - Provider: Beryl Espana, NGHIA) nicotine (Nicoderm, Step 2) 14 MG/24HR patch 1 patch 1 patch, TransDERmal, Administer over 24 Hours, Daily, First dose on Sat06/04/25 at 0900, Apply new patch to nonhairy, clean, dry skin on the upper body or upper outer arm. Rotate patch sites. Notify Pharmacy if patient or provider prefers patch to be removed at bedtime and replaced in the morning. 0850 (Medication Removed - Provider: Tova Strickland, RN)0851 (Medication Applied - Provider: Tova Strickland RN) 1002 (Medication Removed - Provider: Teodora Loaiza RN)1006 (Not Given - Provider: Teodora Loaiza RN - Reason: Patient/family refused) 09 (Medication Applied - Provider: Beryl Espana, NGHIA)1999 (Due: Medication Removed - Provider: Automatic Discharge Provider - Comment: Time automatically adjusted from order being discontinued) pantoprazole (ProtoNix) 40 mg in sodium chloride (PF) 0.9 % 10 mL injection(Linked Group 3) 40 mg, IntraVENous, Administer over 2 Minutes, Nightly, First dose (after last modification) on Sat06/04/25 at 2100, Give only if unable to tolerate po. 2055 (See Alternative - Provider: Carolynn Love RN) 2030 (See Alternative - Provider: Carolynn Love RN) 2099 (Canceled Entry - Provider: Automatic Discharge Provider - Comment: Automatically canceled at discontinue of medication order) pantoprazole (ProtoNix) EC tablet 40 mg(Linked Group 3) 40 mg, Oral, Nightly, First dose (after last modification) on Sat06/04/25 at 2100, Do not crush, chew, or split. 2055 (Given - Provider: Carolynn Love RN) 2030 (Given - Provider: Carolynn Love RN) 2099 (Canceled Entry - Provider: Automatic Discharge Provider - Comment: Automatically canceled at discontinue of medication order) predniSONE (Deltasone) tablet 20 mg (CANCELED) 20 mg, Oral, Daily, First dose on Sat06/08/25 at 0900, For 3 doses 0850 (Given - Provider: Tova Strickland RN) predniSONE (Deltasone) tablet 20 mg(Linked Group 4) 20 mg, Oral, Daily, First dose (after last modification) on Sat06/09/25 at 0900, For 5 doses 1003 (Given - Provider: Teodora Loaiza, NGHIA) 09 (Given - Provider: Beryl Espana, NGHIA) rosuvastatin (Crestor) tablet 40 mg 40 mg, Oral, Daily, First dose on Sat06/04/25 at 0900 0900 (Dose Auto Held)1112 (Unheld by provider - Provider: Mayda Shankar MD) 1002 (Given - Provider: Teodora Loaiza RN) 0901 (Given - Provider: Beryl Espana, RN) sodium chloride 0.9% (NS) flush 10 mL 10 mL, IntraCATHeter, Every 12 hours, First dose on Sat06/10/25 at 1600, Administer to each lumen. Line Care. Use 10 mL or larger syringe. 1609 (Given - Provider: Beryl Espana, NGHIA) sodium chloride 0.9% (NS) flush 5-40 mL 5-40 mL, IntraVENous, Every 12 hours, First dose on Sat06/04/25 at 0410, For Line Patency: Peripheral IV = 5 mL; Midline or Central Line = 10 mL/lumen. If following IV push medication, administer flush at same rate as the IV push. Flush volume is determined by type of infusion therapy being given. For non-viscous solutions use: Peripheral IV = 5 mL Midline or Central Line = 10 mL/lumen For viscous solutions (i.e. blood components, parenteralnutrition, contrast media, or after obtaining blood sample) use: Peripheral IV = 10 mL Midline or Central Line = 20 mL/lumen 0332 (Given - Provider: Kay Delgado RN)1703 (Given - Provider: Tova Strickland, NGHIA) 0430 (Given - Provider: Carolynn Love, NGHIA)1657 (Given - Provider: Teodora Loaiza RN) 0426 (Given - Provider: Carolynn Loev RN)1610 (Given - Provider: Beryl Espana, NGHIA) sodium chloride 3 % hypertonic nebulizer solution 4 mL 4 mL, Nebulization, 2 times daily, First dose on Sat06/04/25 at 0900 0806 (Not Given - Provider: Kacey Newsome - Reason: Patient not available - Comment: Pt with OT)2058 (Given - Provider: Fabby Florentino RCP) 0834 (Given - Provider: Rachael Headley RCP)2001 (Given - Provider: Harlan Harrington, REED) 0943 (Given - Provider: Jose M Sarmiento RCP)193 (Given - Provider: Dallas Jaramillo, [employer]) spironolactone (Aldactone) tablet 25 mg 25 mg, Oral, Daily, First dose (after last modification) on Sat06/08/25 at 1115 1247 (Given - Provider: Tova Strickland, RN) 1003 (Given - Provider: Teodora Loaiza, NGHIA) 0905 (Given - Provider: Beryl Espana, RN) thiamine (Vitamin B1) tablet 100 mg 100 mg, Oral, Daily, First dose on Sat06/04/25 at 0900 0850 (Given - Provider: Tova Strickland, RN) 1003 (Given - Provider: Teodora Loaiza, NGHIA) 0905 (Given - Provider: Beryl Espana, NGHIA) torsemide (Demadex) tablet 20 mg (CANCELED) 20 mg, Oral, Daily, First dose on Sat06/06/25 at 0915 0850 (Given - Provider: Tova Strickland, NGHIA) torsemide (Demadex) tablet 30 mg 30 mg, Oral, Daily, First dose (after last modification) on Sat06/09/25 at 0900 1004 (Given - Provider: Teodora Loaiza, NGHIA) 0905 (Given - Provider: Beryl Espana, NGHIA) vancomycin (Vancocin) 1,000 mg in sodium chloride 0.9 % 250 mL IVPB (Vial Mate) 1,000 mg, IntraVENous, at 62.5 mL/hr, Administer over 240 Minutes, Every 24 hours, First dose (after last reorder) on Sat06/06/25 at 0400, Infusion time adjusted - Give benadryl before infusion Vial Mate, Suspected Indication (Select all that apply): Bloodstream Infection, COPD Exacerbation 0500 (Given - Provider: Kay Delgado RN) 0514 (Given - Provider: Carolynn Love, NGHIA) 0505 (Given - Provider: Carolynn Love, NGHIA) PRN Medication Order 06/08/2025 06/09/2025 06/10/2025 acetaminophen (Tylenol) suppository 650 mg(Linked Group 5) 650 mg, Rectal, Every 6 hours PRN, fever, For temp greater than 100.4 F (38 C), Starting on Sat06/04/25 at 0405, Administer if oral route cannot be used. Maximum dose of acetaminophen is 4000 mg from all sources in 24 hours. acetaminophen (Tylenol) tablet 650 mg(Linked Group 5) 650 mg, Oral, Every 6 hours PRN, mild pain (1-3), fever, For temp greater than 100.4 F (38 C), Starting on Sat06/04/25 at 0405, Maximum dose of acetaminophen is 4000 mg from all sources in 24 hours. alteplase (Cathflo Activase) 2 mg in sterile water 2 mL injection 2 mg, IntraCATHeter, As needed, line care, Starting on Sat06/04/25 at 2204, For occluded catheter ports. Instill 2 mg into each port, and retain for 0.5 - 2 hours. May repeat if catheter remains occluded. Dilute each 2 mg vial with 2.2 mL sterile water to give 1 mg/mL final concentration. Swirl gently to mix; do not shake. ammonium lactate (Lac-Hydrin) 12 % lotion Topical, PRN, dry skin, Starting on 06/07/25 at 1041 0910 (Given - Provid er: Beryl Espana RN) dextrose 5 % infusion 100 mL/hr, IntraVENous, PRN, Blood sugar less than 70mg/dL, Starting on Sat06/04/25 at 0408, Start infusion following administration of dextrose 50% or glucagon. dextrose 50 % solution 12.5 g 12.5 g, IntraVENous, PRN, low blood sugar, Blood glucose less than 70 mg/dL and patient NOT ALERT or NPO., Starting on Sat06/04/25 at 0408, If patient does not respond within 5 minutes, repeat dose x1. Start D5W at 100 mL/hour until ordering provider can be reached. Repeat blood glucose in 15 minutes. If blood glucose is less than 70 mg/dL, repeat treatment and recheck blood glucose in 15 minutes x2. If using Glucostabilizer, dose as instructed per system. gadopiclenol (Vueway) injection 8 mL (COMPLETED) 8 mL, IntraVENous, IMG once PRN, contrast, Starting on Autumn 06/10/25 at 0816, For 1 dose 0816 (Given - Provid er: Susana Vazquez, RT (R)(CT) - Comment: henny scanned/injected) glucagon (human recombinant) injection 1 mg 1 mg, IntraMUSCular, PRN, low blood sugar, Blood glucose less than 70 mg/dL and patient NOT ALERT or NPO and does not have IV access., Starting on Sat06/04/25 at 0408, After administration, attempt intravenous access and start D5W at 100 mL/hr. Repeat blood glucose in 15 minutes x2 and notify provider. glucose oral gel 15 g 15 g, Oral, As needed, low blood sugar, Starting on Sat06/04/25 at 0408, If blood glucose less than 50 mg/dL and patient ALERT and NOT NPO, give 2 tubes glucose gel. If blood glucose less than 70 mg/dL and patient ALERT and NOT NPO, give 1 tube glucose gel. Repeat blood glucose in 15 minutes. If blood glucose is less than 70 mg/dL, repeat treatment and recheck blood glucose in 15 minutes x2 and notify provider. iopamidol (Isovue-300) 61 % injection 5 mL (COMPLETED) 5 mL, IntraVENous, IMG once PRN, contrast, Starting on Autunm 06/10/25 at 1532, For 1 dose 1533 (Given - Provid er: Shyanne Ndiaye, RT (R)) ipratropium-albuterol (Duo-Neb) 0.5-2.5 mg/3 mL nebulizer solution 3 mL 3 mL, Nebulization, 4 times daily PRN, wheezing, Starting on Sat06/04/25 at 0405 polyethylene glycol (PEG) 3350 (Miralax) packet 17 g 17 g, Oral, Daily PRN, constipation, Starting on Sat06/04/25 at 0405, 1st line for treatment of constipation - give scheduled if no bowel movement in past 24 hours. promethazine (Phenergan) injection 25 mg(Linked Group 6) 25 mg, IntraMUSCular, Every 4 hours PRN, nausea, vomiting, Starting on Sat06/04/25 at 0405, 1st Line. Give IM if patient is unable to take orally or receive rectally. Not for IV administration. If inadequate response within 60 minutes, proceed to next-line agent or contact provider if no further options ordered. promethazine (Phenergan) suppository 25 mg(Linked Group 6) 25 mg, Rectal, Every 12 hours PRN, nausea, vomiting, Starting on Sat06/04/25 at 0405, 1st Line. Give VA if patient is unable to take orally. If inadequate response within 60 minutes, proceed to next-line agent or contact provider if no further options ordered. promethazine (Phenergan) tablet 25 mg(Linked Group 6) 25 mg, Oral, Every 6 hours PRN, nausea, vomiting, Starting on Sat06/04/25 at 0405, 1st Line. If inadequate response within 60 minutes, proceed to next-line agent or contact provider if no further options ordered. sodium chloride 0.9 % infusion 5-250 mL/hr, IntraVENous, PRN, if patient receiving piggyback infusions and maintenance fluids are not ordered OR KVO fluids to protect IV site / prevent frequent line interruptions / long duration, Starting on Sat06/04/25 at 0405, For piggyback infusion, administer at same rate as piggyback for a total of 25 mL. Enter 25 mL into dose field and piggyback rate into rate field of order. If piggyback is infusing at a rate less than 100 mL/hr, enter 25 mL into dose field and 100 mL/hr into rate field of order. For KVO fluids, enter rate of 20 mL/hr or less into rate field of order. sodium chloride 0.9% (NS) flush 10 mL 10 mL, IntraCATHeter, PRN, line care, before blood draws, before and after infusion or medication administration, Starting on Autumn 06/10/25 at 1557, Use 10 mL or larger syringe. sodium chloride 0.9% (NS) flush 5-40 mL 5-40 mL, IntraVENous, PRN, line care, After every IV line use, Starting on Sat06/04/25 at 0405, For Line Patency: Peripheral IV = 5 mL; Midline or Central Line = 10 mL/lumen. If following IV push medication, administer flush at same rate as the IV push. Flush volume is determined by type of infusion therapy being given. For non-viscous solutions use: Peripheral IV = 5 mL Midline or Central Line = 10 mL/lumen For viscous solutions (i.e. blood components, parenteralnutrition, contrast media, or after obtaining blood sample) use: Peripheral IV = 10 mL Midline or Central Line = 20 mL/lumen Linked Groups Order Group 1: Insulin Lispro (Humalog) injection 0-12 Units (CANCELED) 0-12 Units, SubCUTAneous, 3 times daily with meals, First dose on Sat06/06/25 at 1200, Medium Dose Correction Algorithm Glucose: Dose: LESS than 150 No Insulin 150-199 2 Units 200-249 4 Units 250-299 6 Units 300-349 8 Units 350-400 10 Units Above 400 12 Units And Insulin Lispro (Humalog) injection 0-12 Units (CANCELED)Jump to med 0-12 Units, SubCUTAneous, Nightly, First dose on Sat06/06/25 at 2100, If eating or bolus tube feeding: Medium Dose Correction Algorithm Glucose: Dose: LESS than 150 No Insulin 150-199 2 Units 200-249 4 Units 250-299 6 Units 300-349 8 Units 350- 400 10 Units Above 400 12 Units Group 2: Insulin Lispro (Humalog) injection 0-12 UnitsJump to med 0-12 Units, SubCUTAneous, 3 times daily with meals, First dose on Sat06/09/25 at 0800, Medium Dose Correction Algorithm Glucose: Dose: LESS than 150 No Insulin 150-199 2 Units 200-249 4 Units 250-299 6 Units 300-349 8 Units 350-400 10 Units Above 400 12 Units And Insulin Lispro (Humalog) injection 0-12 UnitsJump to med 0-12 Units, SubCUTAneous, Nightly, First dose on Sat06/08/25 at 2115, If eating or bolus tube feeding: Medium Dose Correction Algorithm Glucose: Dose: LESS than 150 No Insulin 150-199 2 Units 200-249 4 Units 250-299 6 Units 300-349 8 Units 350- 400 10 Units Above 400 12 Units Group 3: pantoprazole (ProtoNix) EC tablet 40 mgJump to med 40 mg, Oral, Nightly, First dose (after last modification) on Sat06/04/25 at 2100, Do not crush, chew, or split. Or pantoprazole (ProtoNix) 40 mg in sodium chloride (PF) 0.9 % 10 mL injectionJump to med 40 mg, IntraVENous, Administer over 2 Minutes, Nightly, First dose (after last modification) on Sat06/04/25 at 2100, Give only if unable to tolerate po. Group 4: predniSONE (Deltasone) tablet 20 mgJump to med 20 mg, Oral, Daily, First dose (after last modification) on Sat06/09/25 at 0900, For 5 doses Group 5: acetaminophen (Tylenol) tablet 650 mgJump to med 650 mg, Oral, Every 6 hours PRN, mild pain (1-3), fever, For temp greater than 100.4 F (38 C), Starting on Sat06/04/25 at 0405, Maximum dose of acetaminophen is 4000 mg from all sources in 24 hours. Or acetaminophen (Tylenol) suppository 650 mgJump to med 650 mg, Rectal, Every 6 hours PRN, fever, For temp greater than 100.4 F (38 C), Starting on Sat06/04/25 at 0405, Administer if oral route cannot be used. Maximum dose of acetaminophen is 4000 mg from all sources in 24 hours. Group 6: promethazine (Phenergan) tablet 25 mgJump to med 25 mg, Oral, Every 6 hours PRN, nausea, vomiting, Starting on Sat06/04/25 at 0405, 1st Line. If inadequate response within 60 minutes, proceed to next-line agent or contact provider if no further options ordered. Or promethazine (Phenergan) suppository 25 mgJump to med 25 mg, Rectal, Every 12 hours PRN, nausea, vomiting, Starting on Sat06/04/25 at 0405, 1st Line. Give VA if patient is unable to take orally. If inadequate response within 60 minutes, proceed to next-line agent or contact provider if no further options ordered. Or promethazine (Phenergan) injection 25 mgJump to med 25 mg, IntraMUSCular, Every 4 hours PRN, nausea, vomiting, Starting on Sat06/04/25 at 0405, 1st Line. Give IM if patient is unable to take orally or receive rectally. Not for IV administration. If inadequate response within 60 minutes, proceed to next-line agent or contact provider if no further options ordered. FOR RECORDS PERTAINING TO PATIENTS WHO ARE [...] BE BASED ON THE PRIMARY CLINICAL RECORDS. [facility] [employer] [facility] provides no warranty or guarantee of the accuracy or completeness of information in this document.
[2025-07-05 08:47] LABS: Hematocrit 31.7 % (40-54); Hemoglobin 10.8 g/dL (13.0-16.5); Mean Corp Hgb Conc 34.1 g/dL (32-36); Mean Corpuscular Volume 84.3 fL (80-94); Mean Platelet Vol. 9.6 fl (6.2-12.0); POSITIVE COUNT YES; POSITIVE MORPHOLOGY YES; Platelet Count 291 K/mm3 (150-450); RBC Distribution Width CV 14.5 % (11.6-14.6); RBC Distribution Width SD 45.0 fl (35.1-43.9); Red Blood Count 3.76 M/mm3 (4.6-6.2); White Blood Count 9.3 K/mm3 (4.4-11.0)
[2025-07-05 08:53] LABS: Differential Indicated MANUAL DIFF
[2025-07-05 09:14] LABS: AST(SGOT) 26 U/L (<=37); Alanine Aminotransfer ALT/SGPT 20 U/L (<=46); Albumin, Serum 3.2 g/dL (3.4-4.8); Alkaline Phosphatase 89 U/L (40-129); Anion Gap 10 (5-15); BUN 15 mg/dL (4-19); BUN/Creat Ratio 15.8 RATIO (10-20); Calcium,Total 8.3 mg/dL (7.6-11.0); Carbon Dioxide 25.1 mmol/L (21.0-32.0); Chloride 94 mmol/L (98-108); Globulin 2.5 g/dL (2.2-4.2); Glucose 64 mg/dL (70-99); Iron 45 ug/dL (65-175); Iron Binding Capacity,Unsat 159 ug/dL (228-428); Potassium 4.0 mmol/L (3.3-5.1); Vitamin B12 527 pg/mL (180-914)
[2025-07-05 09:20] LABS: Vancomycin, Trough Level 20.5 ug/mL (5.0-15.0)
[2025-07-05 09:21] LABS: Neutrophil-Band 6 % (0-5); Neutrophil-Segmented 62 % (47-70); Red Cell Morphology NORM C+C NORMAL (NORM C&C); Total Cells Counted 100 (MANUAL DIFF)
[2025-07-05 09:28] LABS: Iron Binding Capacity,Total 204 ug/dL (250-450)
[2025-07-05 09:49] LABS: FOLATES,SERUM (FOLIC ACID) 34.30 ng/mL (4.60-34.80)
== END ==
LOC: OLS.SANC 04:00
PROVIDERS: Referring Provider Internal Medicine; Visit Provider Internal Medicine
DX: D64.9 Anemia, unspecified (principal); J44.9 Chronic obstructive pulmonary disease, unspecified; E11.9 Type 2 diabetes mellitus without complications; I10 Essential (primary) hypertension; Z79.899 Other long term (current) drug therapy
CPT/HCPCS: 36415; 80053; 80202; 82607; 82746; 83540; 83550; 85025